=== PATIENT | female | born 1945 | race Caucasian/White ===

== ENCOUNTER 2017-02-09 21:02 | Inpatient (IN) | payer OTHER ==
[~2017-02-09] VITALS: Ht 144.8 cm; Wt 71.8 kg
[~2017-02-09 21:02] MED LIST: ALBU1AER9 INH; ASPI81TA25 PO; ATOR-14 PO; CYAN100020 PO; DOCU-94 PO; FOLI1TAB7 PO; GLC/500 PO; LATA0.009 OPB; LEVA1.25 INH; LISI-729 PO; METO25TA56 PO; MOME200A INH; MONT1TAB3 PO; MORP15TA19 PO; MULTCAP31 PO; NTRGSL/4 UT; NYSTCRE11 TOP; OXYC-57 PO; PANT40TA PO; POLY335019 PO; PRD/25 PO; RTXI500 INJ; THIA50TA3 PO; VENL75TA4 PO
[2017-02-09] MEDS ORDERED: SODIUM CHLORIDE 0.9% 1000ML 1,000 ML IV SCH (21:29)
[2017-02-09] MEDS ORDERED: ONDANSETRON INJ 2 MG/ML 2 ML VIAL IV STA (21:33)
--- NOTE | 2017-02-09 21:48 | DIAGNOSTIC IMAGING REPORT ---
CHEST ONE VIEW PORTABLE CLINICAL HISTORY: Stroke symptoms. COMPARISON STUDY: Chest radiograph November 26, 2015. FINDINGS: Right shoulder arthroplasty is incidentally noted. There is no pneumothorax or pleural effusion. Cardiomediastinal silhouette is stable. There is no evidence of pulmonary edema. No consolidation is identified. IMPRESSION: No acute cardiopulmonary findings. Electronically signed by: Ga Villalta M.D. 02/09/2017 9:46 PM Dictated Date/Time: 02/09/2017 9:45 PM
--- NOTE | 2017-02-09 22:01 | DIAGNOSTIC IMAGING REPORT ---
CT OF THE HEAD WITHOUT CONTRAST CLINICAL HISTORY: Stroke. Lethargic. COMPARISON STUDY: Head CT August 06, 2013. CT DOSE: 537.48 mGy.cm TECHNIQUE: Helical axial images of the head were obtained without IV contrast. Automated exposure control was utilized for the study. FINDINGS: No acute intracranial hemorrhage, midline shift or mass effect is present. Ventricular system is stable. Basilar cisterns are patent. There are no extra-axial collections. White matter hypodensities suggest small vessel disease. There are no findings to suggest acute dural sinus thrombosis or acute territorial infarct. Visualized portions of the sinuses and mastoid air cells are clear. There are no calvarial abnormalities. IMPRESSION: No acute intracranial findings. Electronically signed by: Ga Villalta M.D. 02/09/2017 10:00 PM Dictated Date/Time: 02/09/2017 9:56 PM
[2017-02-09 22:21] LABS: BASO % 0.4 %; BASO ABS # 0.03 K/uL (0-0.2); COMPLETE YES; EOS % 4.9 %; HEMATOCRIT 32.5 % (37-47); IG% 0.2 %; LYMPH % 30.1 %; LYMPH ABS # 2.46 K/uL (1.2-3.4); MEAN CORPUSCULAR HEMOGLOBIN 29.7 pg (25-34); MEAN CORPUSCULAR HGB CONC 32.6 g/dl (32-36); MEAN PLATELET VOLUME 10.3 fL (7.4-10.4); MONO % 10.3 %; NEUT % 54.1 %; PLATELET COUNT 217 K/uL (130-400); RED BLOOD COUNT 3.57 M/uL (4.2-5.4); WHITE BLOOD COUNT 8.17 K/uL (4.8-10.8)
[2017-02-09 22:30] LABS: BUN/CREATININE RATIO 15.9 (10-20); CREATININE 1.8 mg/dl (0.60-1.20); MAGNESIUM 1.9 mg/dl (1.8-2.4); POTASSIUM 4.5 mmol/L (3.5-5.1)
[2017-02-09 22:36] LABS: CALCIUM 8.6 mg/dl (8.5-10.1)
[2017-02-09 22:45] LABS: PARTIAL THROMBOPLASTIN RATIO 0.9; PROTHROMBIN TIME (PATIENT) 10.4 SECONDS (9.0-12.0)
[2017-02-09 22:48] LABS: CKMB/CK RATIO 3.2 (0-3.0); THYROID STIMULATING HORMONE 1.35 uIu/ml (0.300-4.500)
[2017-02-09] MEDS ORDERED: LPT10 PO (23:39)
[2017-02-09] MEDS ORDERED: FLUT1INH PO (23:39)
[2017-02-09] MEDS ORDERED: LSN25 PO (23:39)
[2017-02-09] MEDS ORDERED: VNTHFA/IN INH (23:42)
[2017-02-09] MEDS ORDERED: XLTOPS OPB (23:42)
[2017-02-09] MEDS ORDERED: LEVA1.255 NEB (23:44)
[2017-02-10] VITALS (11 sets, daily range): BP systolic 92–146; BP diastolic 54–74; PULSE 60–80; TEMP 37–37.7; O2SAT 92–98; Ht 144.8 cm; Wt 71.8 kg
[2017-02-10 01:11] LABS: URINE APPEARANCE CLEAR (CLEAR); URINE BILIRUBIN NEG (NEG); URINE COLOR YELLOW; URINE EPITHELIAL CELL AUTO >30 /lpf (0-5); URINE NITRITE NEG (NEG); URINE SPECIFIC GRAVITY 1.018 (1.000-1.030); UROBILINOGEN NEG (NEG); ZZUR CULT IF INDIC CLEAN CATCH YES
[2017-02-10 01:14] LABS: MANUAL MICROSCOPIC REQUIRED? NO; REVIEW REQ? NO
[2017-02-10] MEDS ORDERED: GLUCAGON FOR INJ 1 MG VIAL SQ PRN (01:15)
[2017-02-10] MEDS ORDERED: GLUCOSE 10 TABS/TUBE PO PRN (01:15)
[2017-02-10] MEDS ORDERED: DEXTROSE 50% 50 ML SYR IV PRN (01:15)
[2017-02-10] MEDS ORDERED: GLUCOSE 40% GEL 15 GM TUBE PO PRN (01:15)
[2017-02-10] MEDS ORDERED: POLYETHYLENE (MIRALAX) 17 GM PACK PO PRN (01:30)
[2017-02-10] MEDS ORDERED: PHARMACY GLYCEMIC MGMT CONSULT PRN (01:39)
--- NOTE | 2017-02-10 01:45 | History and Physical ---
History & Physical Date & Time of Service: February 10, 2017 at 01:29 Chief Complaint: Lethargic,Not Eating,Not Answering Questions Right Primary Care Physician: Abigail Garcia M.D. History of Present Illness Source: patient, family, clinic records, hospital records 74 year old female with history of CAD, DM, HTN, CKD 3, Rheumatoid Arthritis, presenting with altered mental status x [address] Garcia for Primary Care. Patient was in her usual state of health until about a week ago when she started to feel "not up to par", weak. Denies fever/chills, nausea/vomiting, diarrhea. Appetite and oral intake has been decreased. Two days ago, she started to notice that she seems confused, slow to answer simple questions, and unsteady with her walking. Denies slurred speech, changes with vision, focal weakness/numbness. Symptoms worsened today prompting ER consult. VS stable at the ER. CT head: no acute process Troponin 0.3, EKG non specific t wave inversion inferior lead Crea increased from baseline 1.1 to 1.8 On exam, patient sitting up in bed, at bedside, comfortable, pleasant. Answers most questions appropriately. Was still unsteady walking to the bathroom. No other symptoms. 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 Status: Chronic (13) Heart disease Status: Chronic (14) HTN (hypertension) Status: Chronic (15) Migraines Status: Chronic (16) Osteoarthritis Status: Chronic (17) Peripheral neuropathy Status: Chronic (18) Pneumonia Status: Resolved (19) Rheumatoid arthritis Permanent Comment: on chronic steroids Status: Chronic Surgical Problems: (1) H/O cardiac catheterization Permanent Comment: cath 07/2013- single vessel CAD involving apical segment LAD , medical management indicated Status: Chronic (2) H/O colonoscopy Status: Chronic (3) History of hysterectomy Status: Chronic (4) S/p EGD Status: Chronic (5) S/P removal of ovarian cyst Status: Chronic (6) S/P rotator cuff repair Permanent Comment: right shoulder Status: Chronic (7) S/P total knee arthroplasty Permanent Comment: left knee Status: Chronic Family History Diabetes mellitus FATHER FH: CHF (congestive heart failure) MOTHER FH: glaucoma MOTHER FH: heart disease FH: renal failure MOTHER Heart block MOTHER Hypertension FATHER MOTHER Stroke FATHER Social History Smoking Status: Never Smoker Smokeless Tobacco Use: No Alcohol Use: none Drug Use: none Marital Status: Housing status: lives with family Occupational Status: retired Immunizations History of Influenza Vaccine: N/A History of Tetanus Vaccine?: Yes History of Pneumococcal: Yes History of Hepatitis B Vaccine: Yes Multi-Drug Resistant Organisms History of MDRO: No Allergies Coded Allergies: Methotrexate (Verified Allergy, Intermediate, RASH/PNEUMONITIS, 02/09/17) Penicillins (Verified Allergy, Intermediate, hives, 02/09/17) Ranitidine (Verified Allergy, Intermediate, rash, 02/09/17) Uncoded Allergies: Insecticides (Allergy, Unknown, DIFFICULTY BREATHING; FULL BODY SWELLING, ) Home Medications Scheduled Aspirin (Aspir-Low), 81 MG PO HS Atorvastatin (Atorvastatin Calcium), 10 MG PO DAILY Cyanocobalamin (Vitamin B12), 1,000 MCG PO QAM Docusate Sodium (Colace), 2 CAP PO HS Fluticasone Furoate-Vilanterol (Breo Ellipta), 1 PUFF PO BID Folic Acid (Folvite), 1 MG PO QPM Latanoprost (Latanoprost), 1 DROP OPB HS Lisinopril (Lisinopril), 2.5 MG PO DAILY Metformin Hcl (Glucophage), 500 MG PO BID Metoprolol Tartrate (Lopressor) (Lopressor), 25 MG PO BID Multiple Vitamins W/ Minerals (Ocuvite Lutein), 1 CAP PO HS Pantoprazole Sodium (Protonix), 40 MG PO QAM Prednisone (Prednisone), 5 MG PO QAM Thiamine Hcl (Vitamin B-1), 50 MG PO QPM Venlafaxine Hcl (Effexor), 75 MG PO AMPM Scheduled PRN Albuterol Hfa (Ventolin Hfa), 2 PUFFS INH Q4 PRN for SOB/Wheezing Levalbuterol Hcl (Levalbuterol), 1 DOSE NEB Q4 PRN for SOB/Wheezing Morphine Cont Rel (Ms Contin), 15 MG PO Q4 PRN for Pain Nitroglycerin (Nitrostat), 0.4 MG UT UD PRN for Chest Pain Polyethylene Glycol 3350 (Miralax), 17 GM PO DAILY PRN for Constipation Review of Systems Constitutional- no fever; no weight loss Eyes- no acute visual changes ENT- no sinus drainage; no pharyngitis Pulmonary- no cough, no wheezing, no shortness of breath Cardiac- no chest pain, no palpitations, no orthopnea, no dependent edema GI- no nausea, no vomiting, no diarrhea, no melena, no hematochezia - no dysuria, no hematuria Musculoskeletal- no arthralgias, no myalgias Derm- no rashes, no new skin lesions, no changing skin lesions Hematologic- no unusual bruising, no unusual bleeding Lymphatics- no adenopathy Endocrine- no polyuria or polydipsia; no heat or cold intolerance Neuro- (+) as noted above Psych- no anxiety, no depression Physical Exam Vital Signs Date Time Temp Pulse Resp B/P Pulse Ox O2 Delivery O2 Flow Rate FiO2 02/10/17 01:25 37.4 68 18 152/69 94 02/10/17 01:02 68 18 152/69 94 Nasal Cannula 3.0 02/09/17 23:00 67 18 115/68 100 Nasal Cannula 3.0 02/09/17 22:27 64 02/09/17 22:06 90 02/09/17 21:05 37.4 72 20 104/48 92 Room Air General Appearance: WD/WN, no apparent distress Head: normocephalic, atraumatic Eyes: normal inspection, PERRL, EOMI, sclerae normal ENT: normal ENT inspection, hearing grossly normal, pharynx normal Neck: supple, no adenopathy, thyroid normal, no JVD, trachea midline Respiratory/Chest: chest non-tender, lungs clear, normal breath sounds, no respiratory distress, no accessory muscle use Cardiovascular: regular rate, rhythm, no edema, no JVD, no murmur, normal peripheral pulses Abdomen/GI: normal bowel sounds, non tender, soft Back: normal inspection, no CVA tenderness Extremities/Musculoskelatal: normal inspection, no calf tenderness, normal capillary refill, no pedal edema, normal range of motion Neurologic/Psych: cone picker II-XII nml as tested, no motor/sensory deficits, alert, normal mood/affect, oriented x 3 Skin: normal color, warm/dry, no rash Lymphatic: no adenopathy Diagnostics Laboratory Results Results Past 24 Hours Test 02/09/17 21:59 02/09/17 22:02 02/09/17 22:28 02/10/17 00:50 Range/Units Bedside Glucose 78 70-90 mg/dl White Blood Count 8.17 4.8-10.8 K/uL Red Blood Count 3.57 4.2-5.4 M/uL Hemoglobin 10.6 12.0-16.0 g/dL Hematocrit 32.5 37-47 % Mean Corpuscular Volume 91.0 80-100 fL Mean Corpuscular Hemoglobin 29.7 25-34 pg Mean Corpuscular Hemoglobin Concent 32.6 32-36 g/dl Platelet Count 217 130-400 K/uL Mean Platelet Volume 10.3 7.4-10.4 fL Neutrophils (%) (Auto) 54.1 % Lymphocytes (%) (Auto) 30.1 % Monocytes (%) (Auto) 10.3 % Eosinophils (%) (Auto) 4.9 % Basophils (%) (Auto) 0.4 % Neutrophils # (Auto) 4.42 1.4-6.5 K/uL Lymphocytes # (Auto) 2.46 1.2-3.4 K/uL Monocytes # (Auto) 0.84 0.11-0.59 K/uL Eosinophils # (Auto) 0.40 0-0.5 K/uL Basophils # (Auto) 0.03 0-0.2 K/uL RDW Standard Deviation 52.2 36.4-46.3 fL RDW Coefficient of Variation 15.5 11.5-14.5 % Immature Granulocyte % (Auto) 0.2 % Immature Granulocyte # (Auto) 0.02 0.00-0.02 K/uL Sodium Level 138 136-145 mmol/L Potassium Level 4.5 3.5-5.1 mmol/L Chloride Level 104 98-107 mmol/L Carbon Dioxide Level 25 21-32 mmol/L Anion Gap 9.0 3-11 mmol/L Blood Urea Nitrogen 29 7-18 mg/dl Creatinine 1.80 0.60-1.20 mg/dl Est Creatinine Clear Calc Drug Dose 24.3 ml/min Estimated GFR () 32.7 Estimated GFR (Non- 28.2 BUN/Creatinine Ratio 15.9 10-20 Random Glucose 77 70-99 mg/dl Calcium Level 8.6 8.5-10.1 mg/dl Magnesium Level 1.9 1.8-2.4 mg/dl Total Bilirubin 0.3 0.2-1 mg/dl Direct Bilirubin 0.1 0-0.2 mg/dl Aspartate Amino Transf (AST/SGOT) 26 15-37 U/L Alanine Aminotransferase (ALT/SGPT) 14 12-78 U/L Alkaline Phosphatase 56 45-117 U/L Total Creatine Kinase 118 26-192 U/L Creatine Kinase MB 3.8 0.5-3.6 ng/ml Creatine Kinase MB Ratio 3.2 0-3.0 Troponin I 0.112 0-0.045 ng/ml Total Protein 6.4 6.4-8.2 gm/dl Albumin 3.7 3.4-5.0 gm/dl Thyroid Stimulating Hormone (TSH) 1.350 0.300-4.500 uIu/ml Prothrombin Time 10.4 9.0-12.0 SECONDS Prothromb Time International Ratio 1.0 0.9-1.1 Activated Partial Thromboplast Time 24.5 21.0-31.0 SECONDS Partial Thromboplastin Ratio 0.9 Urine Color YELLOW Urine Appearance CLEAR CLEAR Urine pH 5.0 4.5-7.5 Urine Specific [place] 1.018 1.000-1.030 Urine Protein NEG NEG Urine Glucose (UA) NEG NEG Urine Ketones NEG NEG Urine Occult Blood NEG NEG Urine Nitrite NEG NEG Urine Bilirubin NEG NEG Urine Urobilinogen NEG NEG Urine Leukocyte Esterase MODERATE NEG Urine WBC (Auto) 10-30 0-5 /hpf Urine RBC (Auto) 0-4 0-4 /hpf Urine Hyaline Casts (Auto) 5-10 0-5 /lpf Urine Epithelial Cells (Auto) >30 0-5 /lpf Urine Bacteria (Auto) NEG NEG Microbiology Results 02/10/17 Urine Culture, Received Pending Diagnostic Radiology [~ rep ct add3]] CT OF THE HEAD WITHOUT CONTRAST CLINICAL HISTORY: Stroke. Lethargic. COMPARISON STUDY: Head CT August 06, 2013. CT DOSE: 537.48 mGy.cm TECHNIQUE: Helical axial images of the head were obtained without IV contrast. Automated exposure control was utilized for the study. FINDINGS: No acute intracranial hemorrhage, midline shift or mass effect is present. Ventricular system is stable. Basilar cisterns are patent. There are no extra-axial collections. White matter hypodensities suggest small vessel disease. There are no findings to suggest acute dural sinus thrombosis or acute territorial infarct. Visualized portions of the sinuses and mastoid air cells are clear. There are no calvarial abnormalities. IMPRESSION: No acute intracranial findings. EKG HR 68. sinus rhythm, non specific t wave inversion inferior leads Impression Assessment and Plan 74 year old female with history of CAD, DM, HTN, CKD 3, Rheumatoid Arthritis, presenting with altered mental status x 2 days. ALTERED MENTAL STATUS - presents with 2 day history of slow to answer questions,mild confusion and gait imbalance - likely from Acute Renal Failure on CKD 3, Intake of Morphine management noted below - r/o CVA CT head negative ff up MRI Brain Neurochecks check orthostatic vital signs ACUTE RENAL FAILURE ON CKD 3 - possible pre renal etiology - hold Metformin, Lisinopril decrease dose of Morphine and Effexor - IV NSS monitor crea MILD CARDIAC MARKER ELEVATION HISTORY OF CAD - no cardiac symptoms non specific t wave inversion in inferior leads - serial cardiac markers echo repeat EKG in AM - may just be from acute renal failure - already on Aspirin , Statin DM 2 hold Metformin ISS HYPERTENSION hold Lisinopril continue Metoprolol B12 AND THIAMINE DEFICIENCY on supplements check levels RHEUMATOID ARTHRITIS on Plaquenil as per patient, 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 Lucas in 08/2016, no note of discontinuing Prednisone needs to be confirmed with Dr. Lucas DVT PROPHYLAXIS SCDs Full code per patient Disposition pending lives with PT/OT eval VTE Prophylaxis VTE Risk Assessment Done? Y/N: Yes Risk Level: Moderate
--- NOTE | 2017-02-10 01:45 | EMERGENCY ROOM VISIT NOTE ---
ED Visit Note First contact with patient: 21:24 Patient seen by me, currently being admitted by the hospitalist. I agree with the physician assistants workup patient will be further evaluated for elevated troponin and strokelike symptoms. 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 Status: Chronic (13) Heart disease Status: Chronic (14) HTN (hypertension) Status: Chronic (15) Migraines Status: Chronic (16) Osteoarthritis Status: Chronic (17) Peripheral neuropathy Status: Chronic (18) Pneumonia Status: Resolved (19) Rheumatoid arthritis Permanent Comment: on chronic steroids Status: Chronic Surgical Problems: (1) H/O cardiac catheterization Permanent Comment: cath 07/2013- single vessel CAD involving apical segment LAD , medical management indicated Status: Chronic (2) H/O colonoscopy Status: Chronic (3) History of hysterectomy Status: Chronic (4) S/p EGD Status: Chronic (5) S/P removal of ovarian cyst Status: Chronic (6) S/P rotator cuff repair Permanent Comment: right shoulder Status: Chronic (7) S/P total knee arthroplasty Permanent Comment: left knee Status: Chronic Current/Historical Medications Scheduled Aspirin (Aspir-Low), 81 MG PO HS Atorvastatin (Atorvastatin Calcium), 10 MG PO DAILY Cyanocobalamin (Vitamin B12), 1,000 MCG PO QAM Docusate Sodium (Colace), 2 CAP PO HS Fluticasone Furoate-Vilanterol (Breo Ellipta), 1 PUFF PO BID Folic Acid (Folvite), 1 MG PO QPM Latanoprost (Latanoprost), 1 DROP OPB HS Lisinopril (Lisinopril), 2.5 MG PO DAILY Metformin Hcl (Glucophage), 500 MG PO BID Metoprolol Tartrate (Lopressor) (Lopressor), 25 MG PO BID Multiple Vitamins W/ Minerals (Ocuvite Lutein), 1 CAP PO HS Pantoprazole Sodium (Protonix), 40 MG PO QAM Prednisone (Prednisone), 5 MG PO QAM Thiamine Hcl (Vitamin B-1), 50 MG PO QPM Venlafaxine Hcl (Effexor), 75 MG PO AMPM Scheduled PRN Albuterol Hfa (Ventolin Hfa), 2 PUFFS INH Q4 PRN for SOB/Wheezing Levalbuterol Hcl (Levalbuterol), 1 DOSE NEB Q4 PRN for SOB/Wheezing Morphine Cont Rel (Ms Contin), 15 MG PO Q4 PRN for Pain Nitroglycerin (Nitrostat), 0.4 MG UT UD PRN for Chest Pain Polyethylene Glycol 3350 (Miralax), 17 GM PO DAILY PRN for Constipation Allergies Coded Allergies: Methotrexate (Verified Allergy, Intermediate, RASH/PNEUMONITIS, 02/09/17) Penicillins (Verified Allergy, Intermediate, hives, 02/09/17) Ranitidine (Verified Allergy, Intermediate, rash, 02/09/17) Uncoded Allergies: Insecticides (Allergy, Unknown, DIFFICULTY BREATHING; FULL BODY SWELLING, ) Vital Signs Date Time Temp Pulse Resp B/P Pulse Ox O2 Delivery O2 Flow Rate FiO2 02/10/17 01:02 68 18 152/69 94 Nasal Cannula 3.0 02/09/17 23:00 67 18 115/68 100 Nasal Cannula 3.0 02/09/17 22:27 64 02/09/17 22:06 90 02/09/17 21:05 37.4 72 20 104/48 92 Room Air Laboratory Results 02/09/17 22:02 Red Blood Count 3.57, Mean Corpuscular Volume 91.0, Mean Corpuscular Hemoglobin 29.7, Mean Corpuscular Hemoglobin Concent 32.6, Mean Platelet Volume 10.3, Neutrophils (%) (Auto) 54.1, Lymphocytes (%) (Auto) 30.1, Monocytes (%) (Auto) 10.3, Eosinophils (%) (Auto) 4.9, Basophils (%) (Auto) 0.4, Neutrophils # (Auto ) 4.42, Lymphocytes # (Auto) 2.46, Monocytes # (Auto) 0.84, Eosinophils # (Auto ) 0.40, Basophils # (Auto) 0.03 02/09/17 22:02 Test 02/09/17 21:59 02/09/17 22:02 02/09/17 22:28 02/10/17 00:50 Bedside Glucose 78 mg/dl (70-90) White Blood Count 8.17 K/uL (4.8-10.8) Red Blood Count 3.57 M/uL (4.2-5.4) Hemoglobin 10.6 g/dL (12.0-16.0) Hematocrit 32.5 % (37-47) Mean Corpuscular Volume 91.0 fL (80-100) Mean Corpuscular Hemoglobin 29.7 pg (25-34) Mean Corpuscular Hemoglobin Concent 32.6 g/dl (32-36) Platelet Count 217 K/uL (130-400) Mean Platelet Volume 10.3 fL (7.4-10.4) Neutrophils (%) (Auto) 54.1 % Lymphocytes (%) (Auto) 30.1 % Monocytes (%) (Auto) 10.3 % Eosinophils (%) (Auto) 4.9 % Basophils (%) (Auto) 0.4 % Neutrophils # (Auto) 4.42 K/uL (1.4-6.5) Lymphocytes # (Auto) 2.46 K/uL (1.2-3.4) Monocytes # (Auto) 0.84 K/uL (0.11-0.59) Eosinophils # (Auto) 0.40 K/uL (0-0.5) Basophils # (Auto) 0.03 K/uL (0-0.2) RDW Standard Deviation 52.2 fL (36.4-46.3) RDW Coefficient of Variation 15.5 % (11.5-14.5) Immature Granulocyte % (Auto) 0.2 % Immature Granulocyte # (Auto) 0.02 K/uL (0.00-0.02) Anion Gap 9.0 mmol/L (3-11) Est Creatinine Clear Calc Drug Dose 24.3 ml/min Estimated GFR () 32.7 Estimated GFR (Non- 28.2 BUN/Creatinine Ratio 15.9 (10-20) Calcium Level 8.6 mg/dl (8.5-10.1) Magnesium Level 1.9 mg/dl (1.8-2.4) Total Bilirubin 0.3 mg/dl (0.2-1) Direct Bilirubin 0.1 mg/dl (0-0.2) Aspartate Amino Transf (AST/SGOT) 26 U/L (15-37) Alanine Aminotransferase (ALT/SGPT) 14 U/L (12-78) Alkaline Phosphatase 56 U/L (45-117) Total Creatine Kinase 118 U/L (26-192) Creatine Kinase MB 3.8 ng/ml (0.5-3.6) Creatine Kinase MB Ratio 3.2 (0-3.0) Troponin I 0.112 ng/ml (0-0.045) Total Protein 6.4 gm/dl (6.4-8.2) Albumin 3.7 gm/dl (3.4-5.0) Thyroid Stimulating Hormone (TSH) 1.350 uIu/ml (0.300-4.500) Prothrombin Time 10.4 SECONDS (9.0-12.0) Prothromb Time International Ratio 1.0 (0.9-1.1) Activated Partial Thromboplast Time 24.5 SECONDS (21.0-31.0) Partial Thromboplastin Ratio 0.9 Urine Color YELLOW Urine Appearance CLEAR (CLEAR) Urine pH 5.0 (4.5-7.5) Urine Specific [place] 1.018 (1.000-1.030) Urine Protein NEG (NEG) Urine Glucose (UA) NEG (NEG) Urine Ketones NEG (NEG) Urine Occult Blood NEG (NEG) Urine Nitrite NEG (NEG) Urine Bilirubin NEG (NEG) Urine Urobilinogen NEG (NEG) Urine Leukocyte Esterase MODERATE (NEG) Urine WBC (Auto) 10-30 /hpf (0-5) Urine RBC (Auto) 0-4 /hpf (0-4) Urine Hyaline Casts (Auto) 5-10 /lpf (0-5) Urine Epithelial Cells (Auto) >30 /lpf (0-5) Urine Bacteria (Auto) NEG (NEG) Medications Administered Medications (Trade) Dose Ordered Sig/[place] Route Start Time Stop Time Status Last Admin Dose Admin Sodium Chloride (Nss 1000ml) 1,000 ml @ 50 mls/hr Q20H IV 02/09/17 21:29 03/11/17 21:28 02/09/17 21:29 50 MLS/HR Ondansetron HCl (Zofran Inj) 4 mg NOW STAT IV 02/09/17 21:33 02/09/17 21:34 DC 02/09/17 21:33 4 MG Departure Information Referrals Abigail Garcia M.D. (PCP) Patient Instructions [facility]
[2017-02-10] MEDS: SODIUM CHLORIDE 0.9% 1000ML 1,000 ML IV SCH ×3 (01:52→23:04)
--- NOTE | 2017-02-10 01:56 | EMERGENCY ROOM VISIT NOTE ---
History First contact with patient: 21:24 Chief Complaint: ALTERED MENTAL STATUS Stated Complaint: ALTERED MENTAL STATUS Nursing Triage Summary: patient reports dizziness today,patient slept til 12pm today and patient was fine at bedtime last night,patient almost fell at home today at 12pm History of Present Illness The patient is a 71 year old female who presents to the Emergency Room with complaints of increased confusion, dysarthria, dizziness, not feeling right, like appetite for the past day. Patient states today she could not find the words that she wanted to say and had difficulty with ambulation and felt dizzy. This is new for her. Patient denies chest pain, dyspnea, fever, chills, cough , congestion, abdominal pain, vomiting, diarrhea, urinary symptoms. She does complain of some nausea. Review of Systems See HPI for pertinent positives & negatives. A total of 10 systems reviewed and were otherwise negative. Past Medical/Surgical History Medical Problems: (1) Allergic rhinitis (2) Altered mental status (3) Asthma (4) CKD (chronic kidney disease), stage III (5) COPD (chronic obstructive pulmonary disease) (6) Depression (7) DJD of right shoulder (8) DM type 2 (diabetes mellitus, type 2) (9) DM type 2 (diabetes mellitus, type 2) (10) Dyslipidemia (11) Gastroparesis (12) GERD (gastroesophageal reflux disease) (13) Glaucoma (14) Gout (15) H/O interstitial lung disease (16) Heart disease (17) HTN (hypertension) (18) Migraines (19) Osteoarthritis (20) Peripheral neuropathy (21) Pneumonia (22) Rheumatoid arthritis Surgical Problems: (1) H/O cardiac catheterization (2) H/O colonoscopy (3) History of hysterectomy (4) S/p EGD (5) S/P removal of ovarian cyst (6) S/P rotator cuff repair (7) S/P total knee arthroplasty Family History Diabetes mellitus FATHER FH: CHF (congestive heart failure) MOTHER FH: glaucoma MOTHER FH: heart disease FH: renal failure MOTHER Heart block MOTHER Hypertension FATHER MOTHER Stroke FATHER Social History Smoking Status: Never Smoker Smokeless Tobacco Use: No Alcohol Use: none Drug Use: none Marital Status: Housing Status: lives with family Occupation Status: retired Current/Historical Medications Scheduled Aspirin (Aspir-Low), 81 MG PO HS Atorvastatin (Atorvastatin Calcium), 10 MG PO DAILY Cyanocobalamin (Vitamin B12), 1,000 MCG PO QAM Docusate Sodium (Colace), 2 CAP PO HS Fluticasone Furoate-Vilanterol (Breo Ellipta), 1 PUFF PO BID Folic Acid (Folvite), 1 MG PO QPM Latanoprost (Latanoprost), 1 DROP OPB HS Lisinopril (Lisinopril), 2.5 MG PO DAILY Metformin Hcl (Glucophage), 500 MG PO BID Metoprolol Tartrate (Lopressor) (Lopressor), 25 MG PO BID Multiple Vitamins W/ Minerals (Ocuvite Lutein), 1 CAP PO HS Pantoprazole Sodium (Protonix), 40 MG PO QAM Prednisone (Prednisone), 5 MG PO QAM Thiamine Hcl (Vitamin B-1), 50 MG PO QPM Venlafaxine Hcl (Effexor), 75 MG PO AMPM Scheduled PRN Albuterol Hfa (Ventolin Hfa), 2 PUFFS INH Q4 PRN for SOB/Wheezing Levalbuterol Hcl (Levalbuterol), 1 DOSE NEB Q4 PRN for SOB/Wheezing Morphine Cont Rel (Ms Contin), 15 MG PO Q4 PRN for Pain Nitroglycerin (Nitrostat), 0.4 MG UT UD PRN for Chest Pain Polyethylene Glycol 3350 (Miralax), 17 GM PO DAILY PRN for Constipation Allergies Coded Allergies: Methotrexate (Verified Allergy, Intermediate, RASH/PNEUMONITIS, 02/09/17) Penicillins (Verified Allergy, Intermediate, hives, 02/09/17) Ranitidine (Verified Allergy, Intermediate, rash, 02/09/17) Uncoded Allergies: Insecticides (Allergy, Unknown, DIFFICULTY BREATHING; FULL BODY SWELLING, ) Physical Exam Vital Signs Date Time Temp Pulse Resp B/P Pulse Ox O2 Delivery O2 Flow Rate FiO2 02/10/17 01:02 68 18 152/69 94 Nasal Cannula 3.0 02/09/17 23:00 67 18 115/68 100 Nasal Cannula 3.0 02/09/17 22:27 64 02/09/17 22:06 90 02/09/17 21:05 37.4 72 20 104/48 92 Room Air Pain Rating (0-10): 0 Physical Exam VITALS: Vitals are noted on the nurse's note and reviewed by myself. Vital signs stable. GENERAL: Pleasant female, in no acute distress, nondiaphoretic, well-developed well-nourished. SKIN: The skin was without rashes, erythema, edema, or bruising. There is no tenting of the skin. Capillary reflex less than 2 seconds. HEAD: Normocephalic atraumatic. EARS: External auditory canals clear, tympanic membranes pearly childs without erythema or effusion bilaterally. EYES: Pupils equal round and reactive to light and accommodation. Conjunctivae without injection, sclerae without icterus. Extraocular movements intact. NOSE: Patent, turbinates without inflammation or discharge. MOUTH: Mucous membranes moist. Pharynx without erythema or exudate. Uvula midline. Airway patent. Tongue does not deviate. NECK: Supple without nuchal rigidity. No lymphadenopathy. No thyromegaly. Cervical spine is nontender. No JVD. HEART: Regular rate and rhythm LUNGS: Clear to auscultation bilaterally without wheezes, rales or rhonchi. No dullness to percussion. No retractions or accessory muscle use. ABDOMEN: Positive bowel sounds x 4. Normal tympanic percussion. Soft, nontender, without masses or organomegaly. Baker sign negative. No guarding or rebound tenderness. MUSCULOSKELETAL: No muscle atrophy, erythema, or edema noted. 5 out of 5 strength throughout. NEURO: Patient was alert and oriented to person place and time. Normal sensation to light and sharp touch. Patient unable to do finger to nose. No other focal neurological deficits. Medical Decision & Procedures Laboratory Results 02/09/17 22:02 Red Blood Count 3.57, Mean Corpuscular Volume 91.0, Mean Corpuscular Hemoglobin 29.7, Mean Corpuscular Hemoglobin Concent 32.6, Mean Platelet Volume 10.3, Neutrophils (%) (Auto) 54.1, Lymphocytes (%) (Auto) 30.1, Monocytes (%) (Auto) 10.3, Eosinophils (%) (Auto) 4.9, Basophils (%) (Auto) 0.4, Neutrophils # (Auto ) 4.42, Lymphocytes # (Auto) 2.46, Monocytes # (Auto) 0.84, Eosinophils # (Auto ) 0.40, Basophils # (Auto) 0.03 02/09/17 22:02 Test 02/09/17 21:59 02/09/17 22:02 02/09/17 22:28 02/10/17 00:50 Bedside Glucose 78 mg/dl (70-90) White Blood Count 8.17 K/uL (4.8-10.8) Red Blood Count 3.57 M/uL (4.2-5.4) Hemoglobin 10.6 g/dL (12.0-16.0) Hematocrit 32.5 % (37-47) Mean Corpuscular Volume 91.0 fL (80-100) Mean Corpuscular Hemoglobin 29.7 pg (25-34) Mean Corpuscular Hemoglobin Concent 32.6 g/dl (32-36) Platelet Count 217 K/uL (130-400) Mean Platelet Volume 10.3 fL (7.4-10.4) Neutrophils (%) (Auto) 54.1 % Lymphocytes (%) (Auto) 30.1 % Monocytes (%) (Auto) 10.3 % Eosinophils (%) (Auto) 4.9 % Basophils (%) (Auto) 0.4 % Neutrophils # (Auto) 4.42 K/uL (1.4-6.5) Lymphocytes # (Auto) 2.46 K/uL (1.2-3.4) Monocytes # (Auto) 0.84 K/uL (0.11-0.59) Eosinophils # (Auto) 0.40 K/uL (0-0.5) Basophils # (Auto) 0.03 K/uL (0-0.2) RDW Standard Deviation 52.2 fL (36.4-46.3) RDW Coefficient of Variation 15.5 % (11.5-14.5) Immature Granulocyte % (Auto) 0.2 % Immature Granulocyte # (Auto) 0.02 K/uL (0.00-0.02) Anion Gap 9.0 mmol/L (3-11) Est Creatinine Clear Calc Drug Dose 24.3 ml/min Estimated GFR () 32.7 Estimated GFR (Non- 28.2 BUN/Creatinine Ratio 15.9 (10-20) Calcium Level 8.6 mg/dl (8.5-10.1) Magnesium Level 1.9 mg/dl (1.8-2.4) Total Bilirubin 0.3 mg/dl (0.2-1) Direct Bilirubin 0.1 mg/dl (0-0.2) Aspartate Amino Transf (AST/SGOT) 26 U/L (15-37) Alanine Aminotransferase (ALT/SGPT) 14 U/L (12-78) Alkaline Phosphatase 56 U/L (45-117) Total Creatine Kinase 118 U/L (26-192) Creatine Kinase MB 3.8 ng/ml (0.5-3.6) Creatine Kinase MB Ratio 3.2 (0-3.0) Troponin I 0.112 ng/ml (0-0.045) Total Protein 6.4 gm/dl (6.4-8.2) Albumin 3.7 gm/dl (3.4-5.0) Thyroid Stimulating Hormone (TSH) 1.350 uIu/ml (0.300-4.500) Prothrombin Time 10.4 SECONDS (9.0-12.0) Prothromb Time International Ratio 1.0 (0.9-1.1) Activated Partial Thromboplast Time 24.5 SECONDS (21.0-31.0) Partial Thromboplastin Ratio 0.9 Urine Color YELLOW Urine Appearance CLEAR (CLEAR) Urine pH 5.0 (4.5-7.5) Urine Specific [place] 1.018 (1.000-1.030) Urine Protein NEG (NEG) Urine Glucose (UA) NEG (NEG) Urine Ketones NEG (NEG) Urine Occult Blood NEG (NEG) Urine Nitrite NEG (NEG) Urine Bilirubin NEG (NEG) Urine Urobilinogen NEG (NEG) Urine Leukocyte Esterase MODERATE (NEG) Urine WBC (Auto) 10-30 /hpf (0-5) Urine RBC (Auto) 0-4 /hpf (0-4) Urine Hyaline Casts (Auto) 5-10 /lpf (0-5) Urine Epithelial Cells (Auto) >30 /lpf (0-5) Urine Bacteria (Auto) NEG (NEG) Medications Administered Medications (Trade) Dose Ordered Sig/Adair Route Start Time Stop Time Status Last Admin Dose Admin Sodium Chloride (Nss 1000ml) 1,000 ml @ 50 mls/hr Q20H IV 02/09/17 21:29 03/11/17 21:28 02/09/17 21:29 50 MLS/HR Ondansetron HCl (Zofran Inj) 4 mg NOW STAT IV 02/09/17 21:33 5/29/17 21:34 DC 02/09/17 21:33 4 MG ED Course Prior records/ancillary studies reviewed and summarized above. Nursing notes reviewed. Additional history obtained from family The patient's history was concerning for dysarthria, weakness, difficulty with ambulation. Differential diagnosis: Etiologies such as metabolic, infection, hypo/hyperglycemia, electrolyte abnormalities, cardiac sources, intracerebral event, toxicologic, neurologic, as well as others were entertained. Physical examination: As above. ER treatment provided: IV Lock On reassessment the patient felt better. Diagnostics interpretation by me: ECG: Normal sinus, normal intervals, T wave inversion in lead 3 and aVF, incomplete right bundle branch block. Impression normal sinus rhythm with incomplete right bundle block interpreted by myself The labs revealed elevated troponin. Elevated creatinine. Imaging studies: CHEST ONE VIEW PORTABLE CLINICAL HISTORY: Stroke symptoms. COMPARISON STUDY: Chest radiograph November 26, 2015. FINDINGS: Right shoulder arthroplasty is incidentally noted. There is no pneumothorax or pleural effusion. Cardiomediastinal silhouette is stable. There is no evidence of pulmonary edema. No consolidation is identified. IMPRESSION: No acute cardiopulmonary findings. Electronically signed by: Ga Villalta M.D. 02/09/2017 9:[address] OF THE HEAD WITHOUT CONTRAST CLINICAL HISTORY: Stroke. Lethargic. COMPARISON STUDY: Head CT August 06, 2013. CT DOSE: 537.48 mGy.cm TECHNIQUE: Helical axial images of the head were obtained without IV contrast. Automated exposure control was utilized for the study. FINDINGS: No acute intracranial hemorrhage, midline shift or mass effect is present. Ventricular system is stable. Basilar cisterns are patent. There are no extra-axial collections. White matter hypodensities suggest small vessel disease. There are no findings to suggest acute dural sinus thrombosis or acute territorial infarct. Visualized portions of the sinuses and mastoid air cells are clear. There are no calvarial abnormalities. IMPRESSION: No acute intracranial findings. MRI ordered Consultation: A consultation was placed with the hospitalist, Dr Jackson. The case was discussed and diagnostics were reviewed. The patient was evaluated in the ER for further treatment. Exam and history seem consistent with acute renal failure, elevated troponin with weakness and difficulty with ambulation concerning for CVA symptoms. Head CT is negative. MRI is pending. Patient will be admitted to medicine for further evaluation and workup. By the evaluation outlined above emergent etiologies such as infection, electrolyte abnormalities, toxologic, abnormalities blood glucose, as well as others were deemed relatively unlikely. The pt informed about the findings as listed above. All questions were answered and pleased with the treatment. Case reviewed with my attending Medical Decision As above Impression Primary Impression: Acute renal failure Additional Impressions: Elevated troponin Altered mental status Departure Information Dispostion Being Evaluated By Hospitalist Condition FAIR Referrals Abigail Garcia M.D. (PCP) Patient Instructions My [facility] Problem Qualifiers Primary Impression: Acute renal failure Acute renal failure type: unspecified Qualified Codes: N17.9 - Acute kidney failure, unspecified
[2017-02-10 06:17] LABS: BASO % 0.3 %; BASO ABS # 0.02 K/uL (0-0.2); COMPLETE YES; EOS % 5.1 %; HEMATOCRIT 33.3 % (37-47); IG% 0.3 %; LYMPH % 32.5 %; LYMPH ABS # 2.37 K/uL (1.2-3.4); MEAN CELL VOLUME 91.2 fL (80-100); MEAN CORPUSCULAR HEMOGLOBIN 28.2 pg (25-34); MEAN CORPUSCULAR HGB CONC 30.9 g/dl (32-36); MEAN PLATELET VOLUME 10.2 fL (7.4-10.4); MONO % 9.9 %; NEUT % 51.9 %; PLATELET COUNT 196 K/uL (130-400); RED BLOOD COUNT 3.65 M/uL (4.2-5.4); WHITE BLOOD COUNT 7.29 K/uL (4.8-10.8)
[2017-02-10 06:53] LABS: BUN/CREATININE RATIO 17.2 (10-20); CALCIUM 8.9 mg/dl (8.5-10.1); CREATININE 1.6 mg/dl (0.60-1.20)
[2017-02-10 07:02] LABS: CKMB/CK RATIO 2.8 (0-3.0)
--- NOTE | 2017-02-10 07:13 | DIAGNOSTIC IMAGING REPORT ---
Brain MRI WITHOUT CONTRAST HISTORY: Altered mental status, dysmetria, dizzy TECHNIQUE: Multiplanar multisequence MRI of the brain was performed without the use of contrast. COMPARISON STUDY: Head CT 02/09/2017. FINDINGS: There is no mass, hematoma, midline shift, or acute infarct. The paranasal sinuses are clear. The mastoid air cells are clear. The ventricles and sulci demonstrate mild age-related involutional changes. Scattered foci of T2 hyperintensity seen within the periventricular and subcortical white matter are nonspecific but suggestive of mild microvascular ischemic changes. The major vascular flow voids at the skull base are well-maintained. Motion artifact. IMPRESSION: No acute intracranial abnormality. Scattered foci of T2 hyperintensity seen within the periventricular and subcortical white matter are nonspecific but favor microvascular ischemic change. Electronically signed by: Peter Olivarez M.D. 02/10/2017 7:12 AM Dictated Date/Time: 02/10/2017 7:09 AM
[2017-02-10] MEDS: INSULIN ASPART 100 UNITS/ML 3 ML PEN SC SCH ×4 (07:43→21:00)
[2017-02-10] MEDS: ATORVASTATIN 10 MG TAB PO SCH (07:56)
[2017-02-10] MEDS: METOPROLOL TARTRATE 25 MG TAB PO SCH ×2 (07:56→21:38)
[2017-02-10] MEDS: CYANOCOBALAMIN 500 MCG TAB (VIT B-12) PO SCH (07:57)
[2017-02-10] MEDS: VENLAFAXINE HCL 50 MG TAB PO SCH ×2 (07:57→21:37)
[2017-02-10] MEDS: PANTOprazole SOD 40 MG TAB PO SCH (07:57)
[2017-02-10 08:42] LABS: ESTIMATED AVERAGE GLUCOSE 131 mg/dl; HA1C FLAG Normal (Normal)
--- NOTE | 2017-02-10 10:46 | ECHOCARDIOGRAM REPORT ---
*NOTICE TO RECEIVING REPUBLICAN AGENCY This information is strictly Confidential and protected under [place] law. [place] law prohibits you from making any further disclosure of this information unless further disclosure is expressly permitted by the written consent of the person to whom it pertains or is authorized by law. A general authorization for the release of medical or other information is not sufficient for this purpose. Hospital accepts no responsibility if the information is made available to any other person, INCLUDING THE PATIENT. Interpretation Summary * Name: GRACE ELLINGTON Study Date: 02/10/2017 07:12 AM BP: 92/56 mmHg * Patient Location: C.2T\S\S230\S\1 HR: 73 * : 1945 (M/d/yyyy) Gender: Female Height: 57 in * Age: 71 yrs Ethnicity: CA Weight: 159 lb * Ordering Physician: Deven Johnson * Referring Physician: Self, Referred * Performed By: Gianna Sosa RDCS * * Reason For Study: Elevated troponin * BSA: 1.6 m2 * -- Conclusions -- * No regional wall motion abnormalities noted. * There is normal left ventricular wall thickness. * Ejection Fraction = >70 %. * The right ventricle is normal in size and function. * There is mild mitral annular calcification. * Grade I diastolic dysfunction, (abnormal relaxation pattern). Procedure Details * A complete two-dimensional transthoracic echocardiogram was performed (2D, M-mode, Doppler and color flow Doppler). * A contrast injection of Definity was performed to improve assessment of LV function. * Contrast was injected into an intravenous site in the right arm. * One vial of Definity ultrasound contrast was diluted in normal saline to a total volume of 10 ml. A total of '2' ml of solution was administered during imaging. * Lot # [id number] of Definity utilized for procedure. * Expiration date MAR 01. * The attending nurse who injected the contrast agent was Marisela Booker RN. Left Ventricle * The left ventricle is normal in size. * There is normal left ventricular wall thickness. * Left ventricular systolic function is normal. * Ejection Fraction = >70 %. * The left ventricular wall motion is normal. * No regional wall motion abnormalities noted. Right Ventricle * The right ventricle is normal in size and function. Atria * The left atrium is mildly dilated. * Right atrial size is normal. * There is no evidence of atrial septal defect, but resolution does not allow assessment for a patent foramen ovale. Mitral Valve * There is mild mitral annular calcification. * There is no mitral valve stenosis. * Significant mitral regurgitation is absent. Tricuspid Valve * The tricuspid valve is normal. * There is no tricuspid stenosis. * Significant tricuspid regurgitation is absent. * Doppler findings do not suggest pulmonary hypertension. Aortic Valve * The aortic valve is trileaflet. * The aortic valve is mildly calcified. * Aortic stenosis is absent. * There is no significant aortic regurgitation. Pulmonic Valve * The pulmonary valve is not well seen, but the Doppler examination is normal without significant regurgitation or stenosis. Great Vessels * The aortic root and proximal ascending aorta are normal sized. Pericardium/Pleural * There is no pericardial effusion. Great Vessels * Normal inferior vena cava diameter and respiratory variation suggests normal central venous pressure. * Normal inferior vena cava size and collapsability with sniff indicates a normal right atrial pressure of 3 mmHg Left Ventricular Diastolic Function * Grade I diastolic dysfunction, (abnormal relaxation pattern). MMode 2D Measurements and Calculations IVSd 0.96 cm LVIDd 4.7 cm LVIDs 2.6 cm LVPWd 10 cm IVS/LVPW 0.96 FS 43.9 % EDV(Teich) 102.0 ml ESV(Teich) 25.4 ml EF(Teich) 75.1 % EDV(cubed) 103.4 ml ESV(cubed) 18.2 ml EF(cubed) 82.4 % LV mass(C)d 159.0 grams LV mass(C)dI 97.5 grams/m\S\2 SV(Teich) 76.7 ml SI(Teich) 47.0 ml/m\S\2 SV(cubed) 85.1 ml SI(cubed) 52.2 ml/m\S\2 Ao root diam 3.5 cm Ao root area 9.7 cm\S\2 LA dimension 3.2 cm asc Aorta Diam 3.2 cm LA/Ao 0.91 LVOT diam 2.0 cm LVOT area 3.2 cm\S\2 LVAd ap4 25.3 cm\S\2 LVLd ap4 6.9 cm EDV(MOD-sp4) 75.9 ml EDV(sp4-el) 78.4 ml LVAs ap4 12.9 cm\S\2 LVLs ap4 6.4 cm ESV(MOD-sp4) 21.8 ml ESV(sp4-el) 22.2 ml EF(MOD-sp4) 71.2 % EF(sp4-el) 71.7 % LVAd ap2 27.6 cm\S\2 LVLd ap2 7.2 cm EDV(MOD-sp2) 88.0 ml EDV(sp2-el) 90.2 ml LVAs ap2 11.8 cm\S\2 LVLs ap2 5.5 cm ESV(MOD-sp2) 21.3 ml ESV(sp2-el) 21.6 ml EF(MOD-sp2) 75.8 % EF(sp2-el) 76.0 % LVLd %diff 3.6 % EDV(MOD-bp) 82.9 ml LVLs %diff -16.13 % ESV(MOD-bp) 22.4 ml EF(MOD-bp) 73.0 % SV(MOD-sp4) 54.1 ml SI(MOD-sp4) 33.1 ml/m\S\2 SV(MOD-sp2) 66.7 ml SI(MOD-sp2) 40.9 ml/m\S\2 SV(MOD-bp) 60.5 ml SI(MOD-bp) 37.1 ml/m\S\2 SV(sp4-el) 56.2 ml SI(sp4-el) 34.4 ml/m\S\2 SV(sp2-el) 68.6 ml SI(sp2-el) 42.0 ml/m\S\2 Doppler Measurements and Calculations MV E max loretta 116.4 cm/sec MV A max loretta 141.2 cm/sec MV E/A 0.82 MV dec time 0.26 sec Ao V2 max 204.0 cm/sec Ao max PG 16.6 mmHg Ao max PG (full) 11.2 mmHg NELSON(V,A) 1.9 cm\S\2 NELSON(V,D) 1.9 cm\S\2 LV V1 max PG 5.5 mmHg LV V1 max 117.1 cm/sec PA V2 max 107.2 cm/sec PA max PG 4.6 mmHg PA acc slope 766.3 cm/sec\S\2 PA acc time 0.11 sec TR max loretta 302.8 cm/sec PA pr(Accel) 28.3 mmHg
[2017-02-10 12:32] LABS: CKMB/CK RATIO 1.9 (0-3.0)
--- NOTE | 2017-02-10 14:13 | Pharmacy Progress Note ---
Glycemic Control Intl Consult Date of Service February 10, 2017. Scope Glycemic Pharmacist consulted by Dr Johnson on 02/10/17 for glycemic control and to write orders per [facility] inpatient glycemic control protocol Objective Weight (Kilograms): 71.800 Accuchecks BSG (last 24hrs): Test 02/09/17 21:59 02/09/17 22:02 02/10/17 05:35 02/10/17 06:39 Bedside Glucose 78 mg/dl (70-90) 59 mg/dl (70-90) Random Glucose 77 mg/dl (70-99) 57 mg/dl (70-99) Test 02/10/17 07:00 02/10/17 07:19 02/10/17 11:32 Bedside Glucose 65 mg/dl (70-90) 93 mg/dl (70-90) 93 mg/dl (70-90) Laboratory Data (last 24hrs) Test 02/09/17 22:02 02/10/17 05:35 Anion Gap 9.0 mmol/L 6.0 mmol/L BUN/Creatinine Ratio 15.9 17.2 Blood Urea Nitrogen 29 mg/dl 28 mg/dl Creatinine 1.80 mg/dl 1.60 mg/dl Potassium Level 4.5 mmol/L 5.0 mmol/L Sodium Level 138 mmol/L 141 mmol/L White Blood Count 8.17 K/uL 7.29 K/uL Red Blood Count 3.57 M/uL 3.65 M/uL Hemoglobin 10.6 g/dL 10.3 g/dL Hematocrit 32.5 % 33.3 % Mean Corpuscular Volume 91.0 fL 91.2 fL Mean Corpuscular Hemoglobin 29.7 pg 28.2 pg Mean Corpuscular Hemoglobin Concent 32.6 g/dl 30.9 g/dl Platelet Count 217 K/uL 196 K/uL Mean Platelet Volume 10.3 fL 10.2 fL Neutrophils (%) (Auto) 54.1 % 51.9 % Lymphocytes (%) (Auto) 30.1 % 32.5 % Monocytes (%) (Auto) 10.3 % 9.9 % Eosinophils (%) (Auto) 4.9 % 5.1 % Basophils (%) (Auto) 0.4 % 0.3 % Neutrophils # (Auto) 4.42 K/uL 3.79 K/uL Lymphocytes # (Auto) 2.46 K/uL 2.37 K/uL Monocytes # (Auto) 0.84 K/uL 0.72 K/uL Eosinophils # (Auto) 0.40 K/uL 0.37 K/uL Basophils # (Auto) 0.03 K/uL 0.02 K/uL Hemoglobin A1c 6.2 % HbA1c Test 02/10/17 05:35 Hemoglobin A1c 6.2 % (4.5-5.6) H Recent Pertinent Medications Outpatient Anti-diabetic Regimen: * Metformin 500 mg BID The patient is currently receiving: * Basal insulin: None * Correctional Insulin: Novolog Correction per scale ACHS Goal Range: Low 140 mg/dL - High 180 mg/dL Correction Factor: 35 mg/dL/unit * Prandial insulin: Per carb ratio of 1 unit per 20 grams CHO consumed * Oral Agents: Held for admission Risk Factors for Insulin Resistance: * Diet: type 2 diabetes/ AHA Assessment & Plan ASSESSMENT: 02/10/17 * 71 y/o female with type 2 diabetes, admitted with altered mental status and hypoglycemia * Pt is maintained on oral antidiabetic agents as an outpatient * Oral agents are not recommended for inpatient use d/t drug interactions, changing PO intake, and difficulty titrating for acute hyper/hypoglycemia. ADA recommends re-initiating outpatient oral agents 1-2 days prior to discharge if/ when appropriate if they were held on admission. * Will hold oral agents for admission and utilize SQ bolus insulin regimen which is the recommended regimen for inpatient glycemic control. * Will initiate weight based insulin dosing for insulin jagdeep patient and titrate based on BSG trends. * Currently ordered a CF and CR but will remove the CR for now in light of the recent hypoglycemia and well controlled A1c on a single oral agent * ADA & AACE recommend a goal blood sugar range 140-180 mg/dl for the majority of critically ill & non-critically ill patients. However, more stringent targets may be selected in individual cases. PLAN FOR INPATIENT GLYCEMIC CONTROL: * No basal insulin * Continue correction factor of 35 mg/dl/unit * REMOVE carb ratio * Continue goal range of Low 140 mg/dL - High 180 mg/dL * Please note that the plan above was derived based on current level of insulin resistance and hospital stress. These recommendations are appropriate for inpatient admission only. Plan of care upon discharge will need to be reassessed to avoid potential outpatient hypo/hyperglycemia. Thank you.
--- NOTE | 2017-02-10 16:46 | Progress Note ---
Internal Med Progress Note Date of Service: February 10, 2017. Provider Documentation: SUBJECTIVE: The patient was seen and examined Admitted with Confusion Feels a lot better now Denies any complaints OBJECTIVE: Vital Signs-as noted below Exam: General-no distress at rest Eyes-normal ENT-normal Neck-supple Lungs-Clear to auscultate bilaterally Heart-Regular,no murmur appreciated Abdomen-Benign,no masses,bowel sound present Extremities-No edema Neuro-AAOx3 Lab data as noted below. ASSESSMENT & PLAN: ALTERED MENTAL STATUS Presents with 2 day history of slow to answer questions,mild confusion and gait imbalance Likely due to Use of Narcotic,Dehydration with Acute Renal Failure on CKD 3, Hypoglycemia and or infection CT head negative,ff up MRI Brain Check Orthostasis Decrease dose of Morphine and Effexor Clinically better this AM ACUTE RENAL FAILURE ON CKD 3 - possible pre renal etiology - hold Metformin, Lisinopril - IV NSS -Monitor Creatinine MILD CARDIAC MARKER ELEVATION HISTORY OF CAD - no cardiac symptoms -non specific t wave inversion in inferior leads - serial cardiac markers,doubt any ACS -echo-pending DM 2 hold Metformin ISS Has Hypoglycemia Will not prescribe Metformion on discharge HYPERTENSION hold Lisinopril continue Metoprolol B12 AND THIAMINE DEFICIENCY on supplements check levels RHEUMATOID ARTHRITIS On Plaquenil 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 Lucas in 08/2016, no note of discontinuing Prednisone OP appointment with Dr Lucas DVT PROPHYLAXIS SCDs CODE status-Full PT/OT evaluation Likely discharge tomorrow Discussed with the Vital Signs: Date Time Temp Pulse Resp B/P Pulse Ox O2 Delivery O2 Flow Rate FiO2 02/10/17 15:15 37.0 61 20 111/70 97 Nasal Cannula 2.0 02/10/17 15:00 Nasal Cannula 2.0 02/10/17 12:14 37.2 62 16 146/54 95 Nasal Cannula 2.0 02/10/17 12:00 96 Nasal Cannula 02/10/17 08:00 37.0 80 19 137/73 94 Nasal Cannula 2.0 02/10/17 08:00 96 Nasal Cannula 02/10/17 04:00 96 Nasal Cannula 02/10/17 03:29 37.5 73 20 92/56 96 Nasal Cannula 2.0 02/10/17 02:04 37.7 67 18 123/60 92 Room Air 02/10/17 01:25 37.4 68 18 152/69 94 02/10/17 01:02 68 18 152/69 94 Nasal Cannula 3.0 02/09/17 23:00 67 18 115/68 100 Nasal Cannula 3.0 02/09/17 22:27 64 02/09/17 22:06 90 02/09/17 21:05 37.4 72 20 104/48 92 Room Air Lab Results: Results Past 24 Hours Test 02/09/17 21:59 02/09/17 22:02 02/09/17 22:28 02/10/17 00:50 Range/Units Bedside Glucose 78 70-90 mg/dl White Blood Count 8.17 4.8-10.8 K/uL Red Blood Count 3.57 4.2-5.4 M/uL Hemoglobin 10.6 12.0-16.0 g/dL Hematocrit 32.5 37-47 % Mean Corpuscular Volume 91.0 80-100 fL Mean Corpuscular Hemoglobin 29.7 25-34 pg Mean Corpuscular Hemoglobin Concent 32.6 32-36 g/dl Platelet Count 217 130-400 K/uL Mean Platelet Volume 10.3 7.4-10.4 fL Neutrophils (%) (Auto) 54.1 % Lymphocytes (%) (Auto) 30.1 % Monocytes (%) (Auto) 10.3 % Eosinophils (%) (Auto) 4.9 % Basophils (%) (Auto) 0.4 % Neutrophils # (Auto) 4.42 1.4-6.5 K/uL Lymphocytes # (Auto) 2.46 1.2-3.4 K/uL Monocytes # (Auto) 0.84 0.11-0.59 K/uL Eosinophils # (Auto) 0.40 0-0.5 K/uL Basophils # (Auto) 0.03 0-0.2 K/uL RDW Standard Deviation 52.2 36.4-46.3 fL RDW Coefficient of Variation 15.5 11.5-14.5 % Immature Granulocyte % (Auto) 0.2 % Immature Granulocyte # (Auto) 0.02 0.00-0.02 K/uL Sodium Level 138 136-145 mmol/L Potassium Level 4.5 3.5-5.1 mmol/L Chloride Level 104 98-107 mmol/L Carbon Dioxide Level 25 21-32 mmol/L Anion Gap 9.0 3-11 mmol/L Blood Urea Nitrogen 29 7-18 mg/dl Creatinine 1.80 0.60-1.20 mg/dl Est Creatinine Clear Calc Drug Dose 24.3 ml/min Estimated GFR () 32.7 Estimated GFR (Non- 28.2 BUN/Creatinine Ratio 15.9 10-20 Random Glucose 77 70-99 mg/dl Calcium Level 8.6 8.5-10.1 mg/dl Magnesium Level 1.9 1.8-2.4 mg/dl Total Bilirubin 0.3 0.2-1 mg/dl Direct Bilirubin 0.1 0-0.2 mg/dl Aspartate Amino Transf (AST/SGOT) 26 15-37 U/L Alanine Aminotransferase (ALT/SGPT) 14 12-78 U/L Alkaline Phosphatase 56 45-117 U/L Total Creatine Kinase 118 26-192 U/L Creatine Kinase MB 3.8 0.5-3.6 ng/ml Creatine Kinase MB Ratio 3.2 0-3.0 Troponin I 0.112 0-0.045 ng/ml Total Protein 6.4 6.4-8.2 gm/dl Albumin 3.7 3.4-5.0 gm/dl Thyroid Stimulating Hormone (TSH) 1.350 0.300-4.500 uIu/ml Prothrombin Time 10.4 9.0-12.0 SECONDS Prothromb Time International Ratio 1.0 0.9-1.1 Activated Partial Thromboplast Time 24.5 21.0-31.0 SECONDS Partial Thromboplastin Ratio 0.9 Urine Color YELLOW Urine Appearance CLEAR CLEAR Urine pH 5.0 4.5-7.5 Urine Specific [place] 1.018 1.000-1.030 Urine Protein NEG NEG Urine Glucose (UA) NEG NEG Urine Ketones NEG NEG Urine Occult Blood NEG NEG Urine Nitrite NEG NEG Urine Bilirubin NEG NEG Urine Urobilinogen NEG NEG Urine Leukocyte Esterase MODERATE NEG Urine WBC (Auto) 10-30 0-5 /hpf Urine RBC (Auto) 0-4 0-4 /hpf Urine Hyaline Casts (Auto) 5-10 0-5 /lpf Urine Epithelial Cells (Auto) >30 0-5 /lpf Urine Bacteria (Auto) NEG NEG Test 02/10/17 05:35 02/10/17 06:39 02/10/17 07:00 02/10/17 07:19 Range/Units White Blood Count 7.29 4.8-10.8 K/uL Red Blood Count 3.65 4.2-5.4 M/uL Hemoglobin 10.3 12.0-16.0 g/dL Hematocrit 33.3 37-47 % Mean Corpuscular Volume 91.2 80-100 fL Mean Corpuscular Hemoglobin 28.2 25-34 pg Mean Corpuscular Hemoglobin Concent 30.9 32-36 g/dl Platelet Count 196 130-400 K/uL Mean Platelet Volume 10.2 7.4-10.4 fL Neutrophils (%) (Auto) 51.9 % Lymphocytes (%) (Auto) 32.5 % Monocytes (%) (Auto) 9.9 % Eosinophils (%) (Auto) 5.1 % Basophils (%) (Auto) 0.3 % Neutrophils # (Auto) 3.79 1.4-6.5 K/uL Lymphocytes # (Auto) 2.37 1.2-3.4 K/uL Monocytes # (Auto) 0.72 0.11-0.59 K/uL Eosinophils # (Auto) 0.37 0-0.5 K/uL Basophils # (Auto) 0.02 0-0.2 K/uL RDW Standard Deviation 52.2 36.4-46.3 fL RDW Coefficient of Variation 15.5 11.5-14.5 % Immature Granulocyte % (Auto) 0.3 % Immature Granulocyte # (Auto) 0.02 0.00-0.02 K/uL Sodium Level 141 136-145 mmol/L Potassium Level 5.0 3.5-5.1 mmol/L Chloride Level 107 98-107 mmol/L Carbon Dioxide Level 28 21-32 mmol/L Anion Gap 6.0 3-11 mmol/L Blood Urea Nitrogen 28 7-18 mg/dl Creatinine 1.60 0.60-1.20 mg/dl Est Creatinine Clear Calc Drug Dose 27.2 ml/min Estimated GFR () 37.7 Estimated GFR (Non- 32.5 BUN/Creatinine Ratio 17.2 10-20 Random Glucose 57 70-99 mg/dl Estimated Average Glucose 131 mg/dl Hemoglobin A1c 6.2 4.5-5.6 % Calcium Level 8.9 8.5-10.1 mg/dl Total Creatine Kinase 118 26-192 U/L Creatine Kinase MB 3.3 0.5-3.6 ng/ml Creatine Kinase MB Ratio 2.8 0-3.0 Troponin I 0.081 0-0.045 ng/ml Vitamin B12 Level > 1999 211-911 pg/mL Hepatitis C Antibody Screen NEG NEG Bedside Glucose 59 65 93 70-90 mg/dl Test 02/10/17 11:32 02/10/17 11:40 Range/Units Bedside Glucose 93 70-90 mg/dl Total Creatine Kinase 106 26-192 U/L Creatine Kinase MB 2.0 0.5-3.6 ng/ml Creatine Kinase MB Ratio 1.9 0-3.0 Troponin I 0.096 0-0.045 ng/ml Microbiology Results 02/10/17 Urine Culture, Received Pending
[2017-02-10] MEDS: LATANOPROST 0.005% OP SOLN 2.5 ML BTL OPB SCH (21:36)
[2017-02-10] MEDS: DOCUSATE SODIUM 100 MG CAP PO SCH (21:36)
[2017-02-10] MEDS: ASPIRIN 81 MG ECTAB PO SCH (21:37)
[2017-02-10] MEDS: THIAMINE HCL 50 MG TAB PO SCH (21:38)
[2017-02-11] VITALS (11 sets, daily range): BP systolic 113–158; BP diastolic 58–75; PULSE 60–80; TEMP 36.5–37.5; O2SAT 92–99
[2017-02-11] MEDS: INSULIN ASPART 100 UNITS/ML 3 ML PEN SC SCH ×4 (07:00→20:51)
[2017-02-11 07:04] LABS: BUN/CREATININE RATIO 14.8 (10-20); CALCIUM 8.5 mg/dl (8.5-10.1); POTASSIUM 4.5 mmol/L (3.5-5.1)
[2017-02-11] MEDS: SODIUM CHLORIDE 0.9% 1000ML 1,000 ML IV SCH ×2 (07:45→17:12)
[2017-02-11] MEDS: VENLAFAXINE HCL 50 MG TAB PO SCH ×2 (09:11→20:49)
[2017-02-11] MEDS: ATORVASTATIN 10 MG TAB PO SCH (09:12)
[2017-02-11] MEDS: METOPROLOL TARTRATE 25 MG TAB PO SCH ×2 (09:12→20:48)
[2017-02-11] MEDS: CYANOCOBALAMIN 500 MCG TAB (VIT B-12) PO SCH (09:12)
[2017-02-11] MEDS: PANTOprazole SOD 40 MG TAB PO SCH (09:12)
--- NOTE | 2017-02-11 13:11 | Progress Note ---
Internal Med Progress Note Date of Service: February 11, 2017. Provider Documentation: SUBJECTIVE: The patient was seen and examined Admitted with Confusion Feels a lot better now Denies any complaints No more confusion ,no more hypoglycemia OBJECTIVE: Vital Signs-as noted below Exam: General-no distress at rest Eyes-normal ENT-normal Neck-supple Lungs-Clear to auscultate bilaterally Heart-Regular,no murmur appreciated Abdomen-Benign,no masses,bowel sound present Extremities-No edema Neuro-AAOx3 Lab data as noted below. ASSESSMENT & PLAN: ALTERED MENTAL STATUS-resolved Presents with 2 day history of slow to answer questions,mild confusion and gait imbalance Likely due to Use of Narcotic,Dehydration with Acute Renal Failure on CKD 3, Hypoglycemia and or infection CT head negative,ff up MRI Brain Check Orthostasis Decrease dose of Morphine and Effexor Clinically better this AM No more confusion Increase ambulation May need Rehab ACUTE RENAL FAILURE ON CKD 3 - possible pre renal etiology - hold Metformin, Lisinopril - IV NSS -Monitor Creatinine-improved MILD CARDIAC MARKER ELEVATION HISTORY OF CAD - no cardiac symptoms -non specific t wave inversion in inferior leads - serial cardiac markers,doubt any ACS -ECHO:: * No regional wall motion abnormalities noted. * There is normal left ventricular wall thickness. * Ejection Fraction = >70 %. * The right ventricle is normal in size and function. * There is mild mitral annular calcification. * Grade I diastolic dysfunction, (abnormal relaxation pattern). 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 Lucas in 08/2016, no note of discontinuing Prednisone OP appointment with Dr Lucas DVT PROPHYLAXIS SCDs CODE status-Full PT/OT evaluation Likely discharge today Discussed with the Vital Signs: Date Time Temp Pulse Resp B/P Pulse Ox O2 Delivery O2 Flow Rate FiO2 02/11/17 12:10 36.5 66 18 139/62 98 02/11/17 12:00 95 Room Air 02/11/17 08:00 95 Room Air 02/11/17 07:59 36.7 78 16 145/58 94 02/11/17 04:31 36.7 60 17 113/61 92 Room Air 02/11/17 04:00 92 Room Air 02/10/17 23:59 98 Nasal Cannula 2.0 02/10/17 22:53 37.4 60 16 135/74 98 Nasal Cannula 2.0 02/10/17 20:00 95 Nasal Cannula 2.0 02/10/17 19:39 37.2 60 18 124/74 98 Nasal Cannula 2.0 02/10/17 15:15 37.0 61 20 111/70 97 Nasal Cannula 2.0 02/10/17 15:00 Nasal Cannula 2.0 Lab Results: Results Past 24 Hours Test 02/10/17 16:49 02/10/17 20:04 02/11/17 05:44 02/11/17 06:54 Range/Units Bedside Glucose 101 124 91 70-90 mg/dl Sodium Level 143 136-145 mmol/L Potassium Level 4.5 3.5-5.1 mmol/L Chloride Level 110 98-107 mmol/L Carbon Dioxide Level 29 21-32 mmol/L Anion Gap 4.0 3-11 mmol/L Blood Urea Nitrogen 15 7-18 mg/dl Creatinine 1.00 0.60-1.20 mg/dl Est Creatinine Clear Calc Drug Dose 43.5 ml/min Estimated GFR () 66.6 Estimated GFR (Non- 57.4 BUN/Creatinine Ratio 14.8 10-20 Random Glucose 85 70-99 mg/dl Calcium Level 8.5 8.5-10.1 mg/dl Test 02/11/17 11:10 Range/Units Bedside Glucose 96 70-90 mg/dl
--- NOTE | 2017-02-11 15:38 | Pharmacy Progress Note ---
Pharmacy Glycemic Sign Off Nt Date of Service February 11, 2017. Assessment & Plan ASSESSMENT: * Pharmacy was consulted by Dr Johnson on 02/10/17 for glycemic control and to write orders per [facility] inpatient glycemic control protocol. * Patient admitted with confusion and hypoglycemia. Metformin was held and correctional insulin was ordered to cover BSG elevations if needed. * Patient has received zero units of insulin since admission. * BSGs ranging 85 to 124 mg/dl * Patient admitted with hypoglycemia * Do not anticipate further changes in patient status that would quickly deteriorate glycemic control (i.e. patient to be NPO for upcoming procedure, steroids tapering, starting tube feedings, etc). * Please see recommendations for outpatient antidiabetic regimen below. PLAN FOR INPATIENT GLYCEMIC CONTROL: No changes needed to current regimen. * Continue NovoLog per scale ACHS * Goal range = 140 180 mg/dl * CF = 35 mg/dl/unit * A1c added to discharge instructions to be communicated to PCP. * Pharmacy is signing off of glycemic consult and will no longer be making adjustments to inpatient regimen. Please feel free to re-consult if needed. Thank you. DISCHARGE RECOMMENDATIONS: * A1c 6.2 % on 02/10/17 * Recommend discontinuation of metformin due to risk of accumulation in the setting of CKD
[2017-02-11] MEDS: MoRPHine SULFATE CR 15 MG TAB (MS CONTIN) PO PRN (16:02)
[2017-02-11] MEDS ORDERED: NURSING VERBAL MED ORDER ONE (17:45)
[2017-02-11] MEDS: THIAMINE HCL 50 MG TAB PO SCH (20:49)
[2017-02-11] MEDS: LATANOPROST 0.005% OP SOLN 2.5 ML BTL OPB SCH (20:50)
[2017-02-11] MEDS: DOCUSATE SODIUM 100 MG CAP PO SCH (20:50)
[2017-02-11] MEDS: ASPIRIN 81 MG ECTAB PO SCH (20:51)
[2017-02-11] MEDS: ACETAMINOPHEN 325 MG TAB PO PRN (20:57)
[2017-02-12] VITALS (8 sets, daily range): BP systolic 136–196; BP diastolic 71–91; PULSE 71–91; TEMP 36.4–37.6; O2SAT 92–94
[2017-02-12] MEDS ORDERED: METOPROLOL TARTRATE 25 MG TAB PO ONE (01:32)
[2017-02-12 08:02] LABS: BUN/CREATININE RATIO 11.5 (10-20); CALCIUM 8.8 mg/dl (8.5-10.1); CREATININE 0.81 mg/dl (0.60-1.20); POTASSIUM 4.2 mmol/L (3.5-5.1)
[2017-02-12] MEDS: CYANOCOBALAMIN 500 MCG TAB (VIT B-12) PO SCH ×2 (08:17→20:28)
[2017-02-12] MEDS: ATORVASTATIN 10 MG TAB PO SCH (08:17)
[2017-02-12] MEDS: VENLAFAXINE HCL 50 MG TAB PO SCH ×2 (08:17→20:29)
[2017-02-12] MEDS: PANTOprazole SOD 40 MG TAB PO SCH (08:18)
[2017-02-12] MEDS: INSULIN ASPART 100 UNITS/ML 3 ML PEN SC SCH ×4 (08:20→20:34)
[2017-02-12] MEDS ORDERED: NURSING VERBAL MED ORDER ONE (09:00)
[2017-02-12] MEDS ORDERED: CLONIDINE HCL 0.1 MG TAB PO ONE (09:00)
[2017-02-12] MEDS ORDERED: LISINOPRIL 2.5 MG TAB PO ONE (10:00)
[2017-02-12] MEDS: ACETAMINOPHEN 325 MG TAB PO PRN (11:37)
--- NOTE | 2017-02-12 17:52 | Progress Note ---
Internal Med Progress Note Date of Service: Feb 12, 2017. Provider Documentation: SUBJECTIVE: The patient was seen and examined Admitted with Confusion Feels a lot better now BP was noted to be high this AM with some confusion No confusion during my exam OBJECTIVE: Vital Signs-as noted below Exam: General-no distress at rest Eyes-normal ENT-normal Neck-supple Lungs-Clear to auscultate bilaterally Heart-Regular,no murmur appreciated Abdomen-Benign,no masses,bowel sound present Extremities-No edema Neuro-AAOx3 Lab data as noted below. ASSESSMENT & PLAN: ALTERED MENTAL STATUS-resolved Presents with 2 day history of slow to answer questions,mild confusion and gait imbalance Likely due to Use of Narcotic,Dehydration with Acute Renal Failure on CKD 3, Hypoglycemia and or infection CT head negative,ff up MRI Brain Check Orthostasis Decrease dose of Morphine and Effexor Clinically better this AM No more confusion Increase ambulation May need Rehab HYPERTENSION-uncontrolled hold Lisinopril continue Metoprolol Noted to be high with acute confusion Lisinopril restarted and rec\eived one dose of Clonidine ACUTE RENAL FAILURE ON CKD 3 - possible pre renal etiology - hold Metformin, Lisinopril - IV NSS -Monitor Creatinine-improved MILD CARDIAC MARKER ELEVATION HISTORY OF CAD - no cardiac symptoms -non specific t wave inversion in inferior leads - serial cardiac markers,doubt any ACS -ECHO:: * No regional wall motion abnormalities noted. * There is normal left ventricular wall thickness. * Ejection Fraction = >70 %. * The right ventricle is normal in size and function. * There is mild mitral annular calcification. * Grade I diastolic dysfunction, (abnormal relaxation pattern). 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 Lucas in 08/2016, no note of discontinuing Prednisone OP appointment with Dr Lucas DVT PROPHYLAXIS SCDs CODE status-Full PT/OT evaluation Likely discharge today Discussed with the -likely discharge tomorrow Vital Signs: Date Time Temp Pulse Resp B/P (MAP) Pulse Ox O2 Delivery O2 Flow Rate FiO2 02/12/17 16:00 Room Air 02/12/17 15:49 36.4 71 16 149/84 (105) 94 Room Air 02/12/17 10:06 91 136/76 (96) 02/12/17 08:43 72 196/91 (126) 182/90 (120) 02/12/17 08:00 Room Air 02/12/17 07:33 37.6 71 20 168/74 (105) 92 02/12/17 06:14 73 165/77 (106) 02/12/17 01:22 74 181/71 (107) 02/12/17 00:13 Room Air 02/11/17 23:05 37.0 80 18 94 Room Air 02/11/17 20:31 73 149/75 (99) 02/11/17 20:00 Room Air 02/11/17 17:58 37.5 69 24 157/72 (100) 92 Room Air Lab Results: Results Past 24 Hours Test 02/11/17 19:45 02/12/17 06:54 02/12/17 07:13 02/12/17 11:01 Range/Units Bedside Glucose 96 121 112 70-90 mg/dl Sodium Level 138 136-145 mmol/L Potassium Level 4.2 3.5-5.1 mmol/L Chloride Level 102 98-107 mmol/L Carbon Dioxide Level 27 21-32 mmol/L Anion Gap 9.0 3-11 mmol/L Blood Urea Nitrogen 9 7-18 mg/dl Creatinine 0.81 0.60-1.20 mg/dl Est Creatinine Clear Calc Drug Dose 53.7 ml/min Estimated GFR () 85.9 Estimated GFR (Non- 74.1 BUN/Creatinine Ratio 11.5 10-20 Random Glucose 113 70-99 mg/dl Calcium Level 8.8 8.5-10.1 mg/dl
[2017-02-12] MEDS: THIAMINE HCL 50 MG TAB PO SCH (20:28)
[2017-02-12] MEDS: DOCUSATE SODIUM 100 MG CAP PO SCH (20:28)
[2017-02-12] MEDS: ASPIRIN 81 MG ECTAB PO SCH (20:29)
[2017-02-12] MEDS: METOPROLOL TARTRATE 25 MG TAB PO SCH (20:29)
[2017-02-12] MEDS: LATANOPROST 0.005% OP SOLN 2.5 ML BTL OPB SCH (20:30)
[2017-02-13] VITALS: O2SAT 94
[2017-02-13 00:16] VITALS: BP 164/81; PULSE 70; TEMP 37.2; O2SAT 93
[2017-02-13] MEDS: INSULIN ASPART 100 UNITS/ML 3 ML PEN SC SCH ×2 (06:30→11:00)
[2017-02-13 07:34] VITALS: BP 148/80; PULSE 73; TEMP 37; O2SAT 94
[2017-02-13 07:58] LABS: BUN/CREATININE RATIO 13.1 (10-20); CALCIUM 8.3 mg/dl (8.5-10.1); CREATININE 0.83 mg/dl (0.60-1.20); POTASSIUM 3.8 mmol/L (3.5-5.1)
[2017-02-13 08:00] VITALS: O2SAT 94
[2017-02-13] MEDS ORDERED: LISINOPRIL 2.5 MG TAB PO SCH (08:00)
[2017-02-13] MEDS: VENLAFAXINE HCL 50 MG TAB PO SCH (08:26)
[2017-02-13] MEDS: ATORVASTATIN 10 MG TAB PO SCH (08:27)
[2017-02-13] MEDS: METOPROLOL TARTRATE 25 MG TAB PO SCH (08:27)
[2017-02-13] MEDS: PANTOprazole SOD 40 MG TAB PO SCH (08:27)
[2017-02-13] MEDS: MoRPHine SULFATE CR 15 MG TAB (MS CONTIN) PO PRN (08:30)
[2017-02-13] MEDS ORDERED: BISACODYL 10 MG SUPP PR STA (11:12)
--- NOTE | 2017-02-13 12:42 | Progress Note ---
Internal Med Progress Note Date of Service: Feb 13, 2017. Provider Documentation: SUBJECTIVE: The patient was seen and examined Admitted with Confusion Feels a lot better now BP is controlled No more confusion Ready to be discharged OBJECTIVE: Vital Signs-as noted below Exam: General-no distress at rest Eyes-normal ENT-normal Neck-supple Lungs-Clear to auscultate bilaterally Heart-Regular,no murmur appreciated Abdomen-Benign,no masses,bowel sound present Extremities-No edema Neuro-AAOx3 Lab data as noted below. ASSESSMENT & PLAN: ALTERED MENTAL STATUS-resolved Presents with 2 day history of slow to answer questions,mild confusion and gait imbalance Likely due to Use of Narcotic,Dehydration with Acute Renal Failure on CKD 3, Hypoglycemia and or infection CT head negative,ff up MRI Brain Check Orthostasis Decrease dose of Morphine and Effexor Clinically better this AM No more confusion Increase ambulation Does not want to go to Rehab Discharge home today following bowel movement HYPERTENSION-uncontrolled hold Lisinopril continue Metoprolol Noted to be high with acute confusion Lisinopril restarted and received one dose of Clonidine BP is well controlled ACUTE RENAL FAILURE ON CKD 3 - possible pre renal etiology - hold Metformin, Lisinopril - IV NSS -Monitor Creatinine-improved MILD CARDIAC MARKER ELEVATION HISTORY OF CAD - no cardiac symptoms -non specific t wave inversion in inferior leads - serial cardiac markers,doubt any ACS -ECHO:: * No regional wall motion abnormalities noted. * There is normal left ventricular wall thickness. * Ejection Fraction = >70 %. * The right ventricle is normal in size and function. * There is mild mitral annular calcification. * Grade I diastolic dysfunction, (abnormal relaxation pattern). 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 Lucas in 08/2016, no note of discontinuing Prednisone OP appointment with Dr Lucas DVT PROPHYLAXIS SCDs CODE status-Full PT/OT evaluation Likely discharge today Discussed with the -likely discharge tomorrow Vital Signs: Date Time Temp Pulse Resp B/P (MAP) Pulse Ox O2 Delivery O2 Flow Rate FiO2 02/13/17 08:00 94 Room Air 02/13/17 07:34 37.0 73 18 148/80 (102) 94 02/13/17 00:16 37.2 70 18 164/81 (108) 93 Room Air 02/13/17 00:00 94 Room Air 02/12/17 20:38 85 166/86 (112) 02/12/17 20:00 94 Room Air 02/12/17 16:00 Room Air 02/12/17 15:49 36.4 71 16 149/84 (105) 94 Room Air Lab Results: Results Past 24 Hours Test 02/12/17 16:52 02/12/17 19:57 02/13/17 06:50 02/13/17 07:18 Range/Units Bedside Glucose 75 113 138 70-90 mg/dl Sodium Level 137 136-145 mmol/L Potassium Level 3.8 3.5-5.1 mmol/L Chloride Level 101 98-107 mmol/L Carbon Dioxide Level 27 21-32 mmol/L Anion Gap 9.0 3-11 mmol/L Blood Urea Nitrogen 11 7-18 mg/dl Creatinine 0.83 0.60-1.20 mg/dl Est Creatinine Clear Calc Drug Dose 52.4 ml/min Estimated GFR () 83.4 Estimated GFR (Non- 71.9 BUN/Creatinine Ratio 13.1 10-20 Random Glucose 85 70-99 mg/dl Calcium Level 8.3 8.5-10.1 mg/dl Test 02/13/17 11:11 Range/Units Bedside Glucose 94 70-90 mg/dl
[2017-02-13 14:37] VITALS: BP 134/71; PULSE 66; TEMP 36.8; O2SAT 93
--- NOTE | 2017-02-13 16:50 | Discharge Instructions ---
Discharge Instructions Date of Service Feb 13, 2017. Admission Reason for Admission: Altered Mental Status Discharge Discharge Diagnosis / Problem: Change in mental Status-resolved Discharge Goals Goal(s): Prevent Disease Progression Activity Recommendations Activity Limitations: resume your previous activity . Instructions / Follow-Up Instructions / Follow-Up Dr Garcia on 02/19/17 at 9:30PM Current Hospital Diet Patient's current hospital diet: Diabetes Type 2 Diet, AHA Diet (Heart Healthy) Discharge Diet Recommended Diet: Diabetes Type 2 Diet Pending Studies Studies pending at discharge: no Laboratory Results Hemoglobin A1c Test 02/10/17 05:35 Range/Units Estimated Average Glucose 131 mg/dl Hemoglobin A1c 6.2 H 4.5-5.6 % Medical Emergencies . Who to Call and When: Medical Emergencies: If at any time you feel your situation is an emergency, please call 911 immediately. . Non-Emergent Contact Non-Emergency issues call your: Primary Care Provider . Past History Medical & Surgical History: (1) Altered mental status (2) HTN (hypertension) (3) Asthma (4) DM type 2 (diabetes mellitus, type 2) (5) GERD (gastroesophageal reflux disease) (6) Depression (7) Rheumatoid arthritis (8) Dyslipidemia (9) S/P removal of ovarian cyst (10) S/P rotator cuff repair (11) S/p EGD (12) H/O colonoscopy (13) History of hysterectomy (14) S/P total knee arthroplasty (15) H/O cardiac catheterization . "Provider Documentation" section prepared by Kvein Rodriguez. . VTE Core Measure Inpt VTE Proph given/why not?: SCD's
[2017-02-13 16:54] VITALS: BP 134/71; PULSE 66; TEMP 36.8; O2SAT 93
--- NOTE | 2017-02-14 07:40 | Discharge Summary ---
Discharge Summary Date of Service Feb 14, 2017. Discharge Summary Admission Date: February 10, 2017 at 01:12 Discharge Date: Feb 13, 2017 Principal Diagnosis: Change in mental Status-resolved Secondary Diagnoses/Problems: Please see H&P and Hospital Progress note Medication Reconciliation Continued Medications: Albuterol Hfa (Ventolin Hfa) 200 Puffs/34865 Mcg Aers 2 PUFFS INH Q4 PRN for SOB/Wheezing Aspirin (Aspir-Low) 81 Mg Tab 81 MG PO HS Atorvastatin (Atorvastatin Calcium) 10 Mg Tab 10 MG PO DAILY Cyanocobalamin (Vitamin B12) 1,000 Mcg Tab 1000 MCG PO QAM Docusate Sodium (Colace) 100 Mg Cap 2 CAP PO HS Fluticasone Furoate-Vilanterol (Breo Ellipta) 1 Inh Inh 1 PUFF PO BID Folic Acid (Folvite) 1 Mg Tab 1 MG PO QPM, TAB Latanoprost (Latanoprost) 37 Drops/2.5 Ml Soln 1 DROP OPB HS Levalbuterol Hcl (Levalbuterol) 1.25 Mg/0.5 Ml Neb 1 DOSE NEB Q4 PRN for SOB/Wheezing Lisinopril (Lisinopril) 2.5 Mg Tab 2.5 MG PO DAILY Metoprolol Tartrate (Lopressor) (Lopressor) 25 Mg Tab 25 MG PO BID, TAB Morphine Cont Rel (Ms Contin) 15 Mg Tabcr 15 MG PO Q12H PRN for Pain, TAB Multiple Vitamins W/ Minerals (Ocuvite Lutein) 1 Cap Cap 1 CAP PO HS Nitroglycerin (Nitrostat) 0.4 Mg Tab 0.4 MG UT UD PRN for Chest Pain Pantoprazole Sodium (Protonix) 40 Mg Tab 40 MG PO QAM, TAB Polyethylene Glycol 3350 (Miralax) 1 Pow Pow 17 GM PO DAILY PRN for Constipation Prednisone (Prednisone) 2.5 Mg Tab 5 MG PO QAM, TAB Thiamine Hcl (Vitamin B-1) 50 Mg Tab 50 MG PO QPM, TAB Venlafaxine Hcl (Effexor) 75 Mg Tab 75 MG PO AMPM, TAB Discontinued Medications: Metformin Hcl (Glucophage) 500 Mg Tab 500 MG PO BID, TAB Admission Information HPI (per Admitting provider): 74 year old female with history of CAD, DM, HTN, CKD 3, Rheumatoid Arthritis, presenting with altered mental status x [address] Garcia for Primary Care. Patient was in her usual state of health until about a week ago when she started to feel "not up to par", weak. Denies fever/chills, nausea/vomiting, diarrhea. Appetite and oral intake has been decreased. Two days ago, she started to notice that she seems confused, slow to answer simple questions, and unsteady with her walking. Denies slurred speech, changes with vision, focal weakness/numbness. Symptoms worsened today prompting ER consult. VS stable at the ER. CT head: no acute process Troponin 0.3, EKG non specific t wave inversion inferior lead Crea increased from baseline 1.1 to 1.8 On exam, patient sitting up in bed, at bedside, comfortable, pleasant. Answers most questions appropriately. Was still unsteady walking to the bathroom. No other symptoms. 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 Status: Chronic (13) Heart disease Status: Chronic (14) HTN (hypertension) Status: Chronic (15) Migraines Status: Chronic (16) Osteoarthritis Status: Chronic (17) Peripheral neuropathy Status: Chronic (18) Pneumonia Status: Resolved (19) Rheumatoid arthritis Permanent Comment: on chronic steroids Status: Chronic Surgical Problems: (1) H/O cardiac catheterization Permanent Comment: cath 07/2013- single vessel CAD involving apical segment LAD , medical management indicated Status: Chronic (2) H/O colonoscopy Status: Chronic (3) History of hysterectomy Status: Chronic (4) S/p EGD Status: Chronic (5) S/P removal of ovarian cyst Status: Chronic (6) S/P rotator cuff repair Permanent Comment: right shoulder Status: Chronic (7) S/P total knee arthroplasty Permanent Comment: left knee Status: Chronic Family History Diabetes mellitus FATHER FH: CHF (congestive heart failure) MOTHER FH: glaucoma MOTHER FH: heart disease FH: renal failure MOTHER Heart block MOTHER Hypertension FATHER MOTHER Stroke FATHER Social History Smoking Status: Never Smoker Smokeless Tobacco Use: No Alcohol Use: none Drug Use: none Marital Status: Housing status: lives with family Occupational Status: retired Immunizations History of Influenza Vaccine: N/A History of Tetanus Vaccine?: Yes History of Pneumococcal: Yes History of Hepatitis B Vaccine: Yes Multi-Drug Resistant Organisms History of MDRO: No Allergies Coded Allergies: Methotrexate (Verified Allergy, Intermediate, RASH/PNEUMONITIS, 02/09/17) Penicillins (Verified Allergy, Intermediate, hives, 02/09/17) Ranitidine (Verified Allergy, Intermediate, rash, 02/09/17) Uncoded Allergies: Insecticides (Allergy, Unknown, DIFFICULTY BREATHING; FULL BODY SWELLING, ) Home Medications Scheduled Aspirin (Aspir-Low), 81 MG PO HS Atorvastatin (Atorvastatin Calcium), 10 MG PO DAILY Cyanocobalamin (Vitamin B12), 1,000 MCG PO QAM Docusate Sodium (Colace), 2 CAP PO HS Fluticasone Furoate-Vilanterol (Breo Ellipta), 1 PUFF PO BID Folic Acid (Folvite), 1 MG PO QPM Latanoprost (Latanoprost), 1 DROP OPB HS Lisinopril (Lisinopril), 2.5 MG PO DAILY Metformin Hcl (Glucophage), 500 MG PO BID Metoprolol Tartrate (Lopressor) (Lopressor), 25 MG PO BID Multiple Vitamins W/ Minerals (Ocuvite Lutein), 1 CAP PO HS Pantoprazole Sodium (Protonix), 40 MG PO QAM Prednisone (Prednisone), 5 MG PO QAM Thiamine Hcl (Vitamin B-1), 50 MG PO QPM Venlafaxine Hcl (Effexor), 75 MG PO AMPM Scheduled PRN Albuterol Hfa (Ventolin Hfa), 2 PUFFS INH Q4 PRN for SOB/Wheezing Levalbuterol Hcl (Levalbuterol), 1 DOSE NEB Q4 PRN for SOB/Wheezing Morphine Cont Rel (Ms Contin), 15 MG PO Q4 PRN for Pain Nitroglycerin (Nitrostat), 0.4 MG UT UD PRN for Chest Pain Polyethylene Glycol 3350 (Miralax), 17 GM PO DAILY PRN for Constipation Review of Systems Constitutional- no fever; no weight loss Eyes- no acute visual changes ENT- no sinus drainage; no pharyngitis Pulmonary- no cough, no wheezing, no shortness of breath Cardiac- no chest pain, no palpitations, no orthopnea, no dependent edema GI- no nausea, no vomiting, no diarrhea, no melena, no hematochezia - no dysuria, no hematuria Musculoskeletal- no arthralgias, no myalgias Derm- no rashes, no new skin lesions, no changing skin lesions Hematologic- no unusual bruising, no unusual bleeding Lymphatics- no adenopathy Endocrine- no polyuria or polydipsia; no heat or cold intolerance Neuro- (+) as noted above Psych- no anxiety, no depression Physical Exam Vital Signs Date Time Temp Pulse Resp B/P Pulse Ox O2 Delivery O2 Flow Rate FiO2 02/10/17 01:25 37.4 68 18 152/69 94 02/10/17 01:02 68 18 152/69 94 Nasal Cannula 3.0 02/09/17 23:00 67 18 115/68 100 Nasal Cannula 3.0 02/09/17 22:27 64 02/09/17 22:06 90 02/09/17 21:05 37.4 72 20 104/48 92 Room Air General Appearance: WD/WN, no apparent distress Head: normocephalic, atraumatic Eyes: normal inspection, PERRL, EOMI, sclerae normal ENT: normal ENT inspection, hearing grossly normal, pharynx normal Neck: supple, no adenopathy, thyroid normal, no JVD, trachea midline Respiratory/Chest: chest non-tender, lungs clear, normal breath sounds, no respiratory distress, no accessory muscle use Cardiovascular: regular rate, rhythm, no edema, no JVD, no murmur, normal peripheral pulses Abdomen/GI: normal bowel sounds, non tender, soft Back: normal inspection, no CVA tenderness Extremities/Musculoskelatal: normal inspection, no calf tenderness, normal capillary refill, no pedal edema, normal range of motion Neurologic/Psych: heater furnace II-XII nml as tested, no motor/sensory deficits, alert, normal mood/affect, oriented x 3 Skin: normal color, warm/dry, no rash Lymphatic: no adenopathy Diagnostics Laboratory Results Results Past 24 Hours Test 02/09/17 21:59 02/09/17 22:02 02/09/17 22:28 02/10/17 00:50 Range/Units Bedside Glucose 78 70-90 mg/dl White Blood Count 8.17 4.8-10.8 K/uL Red Blood Count 3.57 4.2-5.4 M/uL Hemoglobin 10.6 12.0-16.0 g/dL Hematocrit 32.5 37-47 % Mean Corpuscular Volume 91.0 80-100 fL Mean Corpuscular Hemoglobin 29.7 25-34 pg Mean Corpuscular Hemoglobin Concent 32.6 32-36 g/dl Platelet Count 217 130-400 K/uL Mean Platelet Volume 10.3 7.4-10.4 fL Neutrophils (%) (Auto) 54.1 % Lymphocytes (%) (Auto) 30.1 % Monocytes (%) (Auto) 10.3 % Eosinophils (%) (Auto) 4.9 % Basophils (%) (Auto) 0.4 % Neutrophils # (Auto) 4.42 1.4-6.5 K/uL Lymphocytes # (Auto) 2.46 1.2-3.4 K/uL Monocytes # (Auto) 0.84 0.11-0.59 K/uL Eosinophils # (Auto) 0.40 0-0.5 K/uL Basophils # (Auto) 0.03 0-0.2 K/uL RDW Standard Deviation 52.2 36.4-46.3 fL RDW Coefficient of Variation 15.5 11.5-14.5 % Immature Granulocyte % (Auto) 0.2 % Immature Granulocyte # (Auto) 0.02 0.00-0.02 K/uL Sodium Level 138 136-145 mmol/L Potassium Level 4.5 3.5-5.1 mmol/L Chloride Level 104 98-107 mmol/L Carbon Dioxide Level 25 21-32 mmol/L Anion Gap 9.0 3-11 mmol/L Blood Urea Nitrogen 29 7-18 mg/dl Creatinine 1.80 0.60-1.20 mg/dl Est Creatinine Clear Calc Drug Dose 24.3 ml/min Estimated GFR () 32.7 Estimated GFR (Non- 28.2 BUN/Creatinine Ratio 15.9 10-20 Random Glucose 77 70-99 mg/dl Calcium Level 8.6 8.5-10.1 mg/dl Magnesium Level 1.9 1.8-2.4 mg/dl Total Bilirubin 0.3 0.2-1 mg/dl Direct Bilirubin 0.1 0-0.2 mg/dl Aspartate Amino Transf (AST/SGOT) 26 15-37 U/L Alanine Aminotransferase (ALT/SGPT) 14 12-78 U/L Alkaline Phosphatase 56 45-117 U/L Total Creatine Kinase 118 26-192 U/L Creatine Kinase MB 3.8 0.5-3.6 ng/ml Creatine Kinase MB Ratio 3.2 0-3.0 Troponin I 0.112 0-0.045 ng/ml Total Protein 6.4 6.4-8.2 gm/dl Albumin 3.7 3.4-5.0 gm/dl Thyroid Stimulating Hormone (TSH) 1.350 0.300-4.500 uIu/ml Prothrombin Time 10.4 9.0-12.0 SECONDS Prothromb Time International Ratio 1.0 0.9-1.1 Activated Partial Thromboplast Time 24.5 21.0-31.0 SECONDS Partial Thromboplastin Ratio 0.9 Urine Color YELLOW Urine Appearance CLEAR CLEAR Urine pH 5.0 4.5-7.5 Urine Specific [place] 1.018 1.000-1.030 Urine Protein NEG NEG Urine Glucose (UA) NEG NEG Urine Ketones NEG NEG Urine Occult Blood NEG NEG Urine Nitrite NEG NEG Urine Bilirubin NEG NEG Urine Urobilinogen NEG NEG Urine Leukocyte Esterase MODERATE NEG Urine WBC (Auto) 10-30 0-5 /hpf Urine RBC (Auto) 0-4 0-4 /hpf Urine Hyaline Casts (Auto) 5-10 0-5 /lpf Urine Epithelial Cells (Auto) >30 0-5 /lpf Urine Bacteria (Auto) NEG NEG Microbiology Results 02/10/17 Urine Culture, Received Pending Diagnostic Radiology ] CT OF THE HEAD WITHOUT CONTRAST CLINICAL HISTORY: Stroke. Lethargic. COMPARISON STUDY: Head CT August 06, 2013. CT DOSE: 537.48 mGy.cm TECHNIQUE: Helical axial images of the head were obtained without IV contrast. Automated exposure control was utilized for the study. FINDINGS: No acute intracranial hemorrhage, midline shift or mass effect is present. Ventricular system is stable. Basilar cisterns are patent. There are no extra-axial collections. White matter hypodensities suggest small vessel disease. There are no findings to suggest acute dural sinus thrombosis or acute territorial infarct. Visualized portions of the sinuses and mastoid air cells are clear. There are no calvarial abnormalities. IMPRESSION: No acute intracranial findings. EKG HR 68. sinus rhythm, non specific t wave inversion inferior leads Impression Assessment and Plan 74 year old female with history of CAD, DM, HTN, CKD 3, Rheumatoid Arthritis, presenting with altered mental status x 2 days. ALTERED MENTAL STATUS - presents with 2 day history of slow to answer questions,mild confusion and gait imbalance - likely from Acute Renal Failure on CKD 3, Intake of Morphine management noted below - r/o CVA CT head negative ff up MRI Brain Neurochecks check orthostatic vital signs ACUTE RENAL FAILURE ON CKD 3 - possible pre renal etiology - hold Metformin, Lisinopril decrease dose of Morphine and Effexor - IV NSS monitor crea MILD CARDIAC MARKER ELEVATION HISTORY OF CAD - no cardiac symptoms non specific t wave inversion in inferior leads - serial cardiac markers echo repeat EKG in AM - may just be from acute renal failure - already on Aspirin , Statin DM 2 hold Metformin ISS HYPERTENSION hold Lisinopril continue Metoprolol B12 AND THIAMINE DEFICIENCY on supplements check levels RHEUMATOID ARTHRITIS on Plaquenil as per patient, 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 Lucas in 08/2016, no note of discontinuing Prednisone needs to be confirmed with Dr. Lucas DVT PROPHYLAXIS SCDs Full code per patient Disposition pending lives with PT/OT eval VTE Prophylaxis VTE Risk Assessment Done? Y/N: Yes Risk Level: Moderate <Electronically signed by Deven Johnson MD> Signed: 02/10/17 0145 Signed: The status of this report is Signed Physical Exam (per Admitting): General Appearance: WD/WN, no apparent distress Head: normocephalic, atraumatic Eyes: normal inspection, PERRL, EOMI, sclerae normal ENT: normal ENT inspection, hearing grossly normal, pharynx normal Neck: supple, no adenopathy, thyroid normal, no JVD, trachea midline Respiratory/Chest: chest non-tender, lungs clear, normal breath sounds, no respiratory distress, no accessory muscle use Cardiovascular: regular rate, rhythm, no edema, no JVD, no murmur, normal peripheral pulses Abdomen/GI: normal bowel sounds, non tender, soft Back: normal inspection, no CVA tenderness Extremities/Musculoskelatal: normal inspection, no calf tenderness, normal capillary refill, no pedal edema, normal range of motion Neurologic/Psych: heater furnace II-XII nml as tested, no motor/sensory deficits, alert , normal mood/affect, oriented x 3 Skin: normal color, warm/dry, no rash Lymphatic: no adenopathy Hospital Course ALTERED MENTAL STATUS-resolved Presents with 2 day history of slow to answer questions,mild confusion and gait imbalance Likely due to Use of Narcotic,Dehydration with Acute Renal Failure on CKD 3, Hypoglycemia and or infection CT head negative,ff up MRI Brain Check Orthostasis Decrease dose of Morphine and Effexor Clinically better this AM No more confusion Increase ambulation Does not want to go to Rehab Discharge home today following bowel movement HYPERTENSION-uncontrolled hold Lisinopril continue Metoprolol Noted to be high with acute confusion Lisinopril restarted and received one dose of Clonidine BP is well controlled ACUTE RENAL FAILURE ON CKD 3 - possible pre renal etiology - hold Metformin, Lisinopril - IV NSS -Monitor Creatinine-improved MILD CARDIAC MARKER ELEVATION HISTORY OF CAD - no cardiac symptoms -non specific t wave inversion in inferior leads - serial cardiac markers,doubt any ACS -ECHO:: * No regional wall motion abnormalities noted. * There is normal left ventricular wall thickness. * Ejection Fraction = >70 %. * The right ventricle is normal in size and function. * There is mild mitral annular calcification. * Grade I diastolic dysfunction, (abnormal relaxation pattern). 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 Lucas in 08/2016, no note of discontinuing Prednisone OP appointment with Dr Lucas DVT PROPHYLAXIS SCDs CODE status-Full PT/OT evaluation Likely discharge today Discussed with the -likely discharge tomorrow Total time spent on discharge = 35 minutes This includes examination of the patient, discharge planning, medication reconciliation, and communication with other providers. Discharge Instructions Date of Service Feb 13, 2017. Admission Reason for Admission: Altered Mental Status Discharge Discharge Diagnosis / Problem: Change in mental Status-resolved Discharge Goals Goal(s): Prevent Disease Progression Activity Recommendations Activity Limitations: resume your previous activity . Instructions / Follow-Up Instructions / Follow-Up Dr Garcia on 02/19/17 at 9:30PM Current Hospital Diet Patient's current hospital diet: Diabetes Type 2 Diet, AHA Diet (Heart Healthy) Discharge Diet Recommended Diet: Diabetes Type 2 Diet Pending Studies Studies pending at discharge: no Laboratory Results Hemoglobin A1c Test 02/10/17 05:35 Range/Units Estimated Average Glucose 131 mg/dl Hemoglobin A1c 6.2 H 4.5-5.6 % Medical Emergencies . Who to Call and When: Medical Emergencies: If at any time you feel your situation is an emergency, please call 911 immediately. . Non-Emergent Contact Non-Emergency issues call your: Primary Care Provider . Past History Medical & Surgical History: (1) Altered mental status (2) HTN (hypertension) (3) Asthma (4) DM type 2 (diabetes mellitus, type 2) (5) GERD (gastroesophageal reflux disease) (6) Depression (7) Rheumatoid arthritis (8) Dyslipidemia (9) S/P removal of ovarian cyst (10) S/P rotator cuff repair (11) S/p EGD (12) H/O colonoscopy (13) History of hysterectomy (14) S/P total knee arthroplasty (15) H/O cardiac catheterization . "Provider Documentation" section prepared by Kevin Rodriguez. . VTE Core Measure Inpt VTE Proph given/why not?: SCD's <Electronically signed by Kevin Rodriguez M.D.> Signed: 02/13/17 0943 Additional Copies To Abigail Garcia M.D.
== END 2017-02-13 17:45 | disposition home health service (06) | DRG 683 ==
LOC: ENRESERVTM → ENRESERVDT → C.EDB 21:03 → C.2T 02-10 01:12 → C.MS4W 02-11 17:38
PROVIDERS: ADMIT Internal Medicine; ATTEND Internal Medicine
DX: N17.9 Acute kidney failure, unspecified (principal); E51.9 Thiamine deficiency, unspecified; R41.82 Altered mental status, unspecified; E86.0 Dehydration; E11.22 Type 2 diabetes mellitus with diabetic chronic kidney disease; N18.3 Chronic kidney disease, stage 3 (moderate); K21.9 Gastro-esophageal reflux disease without esophagitis; M06.9 Rheumatoid arthritis, unspecified; I25.10 Atherosclerotic heart disease of native coronary artery without angina pectoris; E53.8 Deficiency of other specified B group vitamins; Z79.52 Long term (current) use of systemic steroids; Z79.82 Long term (current) use of aspirin; Z79.84 Long term (current) use of oral hypoglycemic drugs; Z79.899 Other long term (current) drug therapy

== ENCOUNTER 2019-11-11 18:11 | Inpatient (IN) ==
[2019-11-11] MEDS: SODIUM CHLORIDE 0.9% 1000ML 1,000 ML IV SCH (18:52)
[2019-11-11 19:03] LABS: Basophils # (auto) 0.02 K/uL (0-0.2); Basophils % (auto) 0.2 %; Eosinophils # (auto) 0.04 K/uL (0-0.5); Eosinophils % (auto) 0.4 %; Hematocrit (blood only) 47.3 % (37-47); Hemoglobin 16.7 g/dL (12.0-16.0); Immature Granulocytes # (auto) 0.02 K/uL (0.00-0.02); Immature Granulocytes % (auto) 0.2 %; Lymphocytes # (auto) 2.05 K/uL (1.2-3.4); Lymphocytes % (auto) 20.4 %; Mean Corpuscular Hemoglobin 31.2 pg (25-34); Mean Corpuscular Hgb Conc 35.3 g/dL (32-36); Mean Corpuscular Volume 88.2 fL (80-100); Mean Platelet Volume 11.3 fL (7.4-10.4); Monocytes # (auto) 1.15 K/uL (0.11-0.59); Monocytes % (auto) 11.4 %; Neutrophils # (auto) 6.77 K/uL (1.4-6.5); Neutrophils % (auto) 67.4 %; Platelet Count 187 K/uL (130-400); RDW Coefficient of Variation 14.7 % (11.5-14.5); RDW Standard Deviation 47.3 fL (36.4-46.3); Red Blood Count 5.36 M/uL (4.2-5.4); White Blood Count 10.05 K/uL (4.8-10.8)
[2019-11-11 19:10] LABS: Albumin Level 3.8 gm/dl (3.4-5.0); BUN Creatinine Ratio 15.6 (10-20); Calcium 10.3 mg/dl (8.5-10.1); Creatinine Clr Calc Pharmacy 23.3 ml/min; Est GFR (African American) 34.1; Est GFR (Non-African American) 29.4; Magnesium 1.9 mg/dl (1.8-2.4); Potassium 3.7 mmol/L (3.5-5.1)
[2019-11-11 19:21] LABS: Bilirubin,Total 1.3 mg/dl (0.2-1); Globulin 3.9 gm/dl (2.5-4.0); Phosphorus 4.5 mg/dl (2.5-4.9); Thyroid Stimulating Hormone 2.04 uIu/ml (0.300-4.500); Total Protein 7.7 gm/dl (6.4-8.2)
--- NOTE | 2019-11-11 19:37 | XRay Report ---
CHEST AND ABDOMEN 2 VIEWS HISTORY: Generalized abdominal pain. Seizure. COMPARISON: Chest 07/24/2018. FINDINGS: The lungs are clear. The cardiomediastinal silhouette is within normal limits. There is no pneumoperitoneum or pneumatosis. The bowel gas pattern is unremarkable. No evidence for b owel obstruction. No renal or ureteral calculi. 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 Calcifications in the deep pelvis likely represent phleboliths.. IMPRESSION: No acute cardiopulmonary process. No evidence for bowel obstruction. ACT 112: Negative or not required by law. Electronically signed by: Peter Olivarez M.D. 11/11/2019 7:36 PM
--- NOTE | 2019-11-11 19:56 | CT Scan Report ---
HEAD CT NONCONTRAST CT DOSE: 614.27 mGy.cm HISTORY: new seizure TECHNIQUE: Multiaxial CT images of the head were performed without the use of intravenous contrast. A utomated exposure control was utilized for this study. A dose lowering technique was utilized adheri ng to the principles of ALARA. Comparison: Head CT 07/22/2018. Findings: Trace fluid level within the left maxillary sinus. The mastoid air cells are clear. The vane varium and skull base are intact. There is no mass, hematoma, midline shift, acute infarct. White mat ter hypodensity is nonspecific but suggestive of microvascular ischemic change. The ventricles and mike lci demonstrate mild age-related involutional changes. Impression: No acute intracranial abnormality. Atrophy and microvascular ischemic changes. Trace fluid level with in the left maxillary sinus. ACT 112: Negative or not required by law. Electronically signed by: Peter Olivarez M.D. 11/11/2019 7:54 PM
--- NOTE | 2019-11-11 21:32 | CT Scan Report ---
ABDOMEN AND PELVIS CT WITHOUT CONTRAST CT DOSE: 360.07 mGy.cm HISTORY: abn lft's, recent c.diff, generalized abdominal pain TECHNIQUE: Multiaxial CT images of the abdomen and pelvis were performed without contrast. A dose lo wering technique was utilized adhering to the principles of ALARA. COMPARISON STUDY: Abdomen and pelvis CT 07/20/2018. FINDINGS: Punctate calcified granuloma within the right lower lobe posteriorly. The left lung base is clear. No pneumoperitoneum. No pneumatosis. No suspicious lytic or blastic osseous lesions. Advanced degenerative disc disease within the lower lumbar spine is again noted. Small hiatus hernia. The une nhanced liver, spleen, adrenal glands, pancreas, and right kidney are unremarkable. There is a puncta te stone within the left kidney. No ureteral stones. No hydronephrosis. No retroperitoneal lymphadeno johnson. Multiple small gallstones are identified. Questionable minimal inflammatory change adjacent to the gallbladder. There are 2 stable hypodense lesions within the left kidney with the largest in the lower pole measuring 4.6 cm. These are incompletely characterized on this noncontrast study but stat istically represent cysts. The bladder is decompressed but appears unremarkable. The uterus is surgic ally absent. Bilateral adnexa are within normal limits. No pelvic free fluid. Suboptimal evaluation f or bowel pathology due to the lack of intravenous and oral contrast. However, there is no definite froilan wel wall thickening or obstruction. Colonic diverticulosis. No CT evidence for diverticulitis. Normal appendix. IMPRESSION: 1. Questionable minimal inflammatory change adjacent to the gallbladder. Consider follow-up ultrasoun d the patient is complaining of right upper quadrant pain and to exclude the possibility of acute cho lecystitis. 2. Colonic diverticulosis. No evidence for diverticulitis. 3. Normal appendix. 4. Left-sided nephrolithiasis. No ureteral stones. No hydronephrosis. 5. No definite bowel wall thickening or obstruction. ACT 112: Negative or not required by law. Electronically signed by: Peter Olivarez M.D. 11/11/2019 9:31 PM
[2019-11-11] MEDS ORDERED: SODIUM CHLORIDE 0.9% 1000ML 1,000 ML IV SCH (22:30)
--- NOTE | 2019-11-11 22:50 | Ultrasound Report ---
ABDOMINAL ULTRASOUND, RIGHT UPPER QUADRANT HISTORY: Generalized abdominal pain. Abnormal ct, abn lft's. COMPARISON: Abdomen and pelvis CT 11/11/2019. FINDINGS: Pancreas: Obscured by overlying bowel gas. Liver: Unremarkable. Gallbladder: A few small gallstones. No gallbladder wall thickening. Negative sonographic Baker sign . CBD: 4 mm. Right kidney: No hydronephrosis. IMPRESSION: Cholelithiasis. No gallbladder wall thickening. ACT 112: Negative or not required by law. Electronically signed by: Peter Olivarez M.D. 11/11/2019 10:48 PM
--- NOTE | 2019-11-11 23:02 | Emergency Department Note ---
Entered by Alyssia Michelle acting as a scribe for History of Present Illness General Chief complaint: Seizure Stated complaint: WEAKNESS, SEIZURE, HIGH BP Time Seen by Provider: 11/11/19 18:23 Source: patient and family Mode of arrival: ambulatory Limitations: no limitations History of Present Illness Provider complaint: Seizure Onset (ago): hour(s) (today) Location: head Radiation: non-radiation Pain Consistency: + other (episode) Quality: + other (seizure) Associated symptoms: + confusion, + headaches, + weakness and + other (Additional symptoms: hypertension, pallor, right eye blurriness, central abdominal pain, diarrhea. Denies: facial droop); no fever/chills, no nause a/vomiting and no syncope Treatments prior to arrival: none The patient is a 74 year old female with a history of COPD, stage III CKD, type 2 diabetes, dyslipidemia, GERD, interstitial lung disease, gastroparesis, hypertension, NSTEMI, and cardiac catheterization who presents to the Emergency Room with complaints of an episode of a seizure occurring today. Per , the patient was hypertensive with a blood pressure of 180/120 this morning. He reports that the patient had a seizure on her way to the bathroom after her blood pressure was taken. At this time, he explains that the patient turned pale and looked unwell. He indicates that he lower her to the ground before she started having slight shakes mostly in her arms and shoulders and her eyes rolled back. He states that this seizure episode lasted for a few minutes and that he was able to help the patient get back up to her bed afterward. When more members of the patient's family arrived, they noted that the patient was talking cohesively but repeating the same phrase. They indicate that the patient is normally not confused at baseline. They add that the patient complained of blurriness in her right eye and general weakness. They deny any vomiting, facial drooping, and fevers. Per family, the patient has now mostly returned to her normal self. They state that they do not believe that the patient has a history of seizures. The patient now notes that she has been having headaches but has not passed out. She reports that she has also not been eating much over the past 2 days. She states that she has intermittent pain across her central abdomen. Per , the patient has had diarrhea secondary to C diff for the past 2 months and is currently on an antibiotic. He adds that the patient fell while chasing her cat a few days ago and bruised her right knee but did not hit her head. He mentions that the patient was in the [facility] ICU for 6 weeks for a lung infection 2 months ago. Home Medications Home Medications Medication Instructions Recorded Confirmed Type aspirin [Aspir-81] 81 mg PO HS 07/20/18 11/12/19 History duloxetine 60 mg PO DAILY 07/20/18 11/12/19 History folic acid 1 mg PO QAM 07/20/18 11/12/19 History hydroxychloroquine 200 mg PO HS 07/20/18 11/12/19 History lisinopril 2.5 mg PO QAM 07/20/18 11/12/19 History metoprolol tartrate 25 mg PO BID 07/20/18 11/12/19 History montelukast 10 mg PO HS 07/20/18 11/12/19 History pantoprazole 40 mg PO QAM 07/20/18 11/12/19 History prednisone 5 - 10 mg PO QAM 07/20/18 11/12/19 History thiamine mononitrate (vit B1) 50 mg PO QAM 07/20/18 11/12/19 History Ocuvite with Lutein 1 tab PO QAM 03/07/19 11/12/19 History albuterol sulfate [ProAir HFA] 2 puff INHALATION Q4 PRN 03/07/19 11/12/19 Histo ry betamethasone dipropionate 1 applic TOPICAL DAILY PRN 03/07/19 11/12/19 History cholecalciferol (vitamin D3) 2,000 unit PO QAM 03/07/19 11/12/19 History [Vitamin D3] clindamycin HCl 600 mg PO UD PRN 03/07/19 11/12/19 History cyanocobalamin (vitamin B-12) 2,000 mcg PO 3XWK 03/07/19 11/12/19 History [Vitamin B-12] fluticasone propionate [Flonase 2 spray INTRANASAL DAILY PRN 03/07/19 11/12/19 History Allergy Relief] latanoprost [Xalatan] 1 drp OPHTHALMIC (EYE) HS 03/07/19 11/12/19 History leflunomide [Arava] 10 mg PO QAM 03/07/19 11/12/19 History levalbuterol HCl [Xopenex] 1.25 mg INHALATION Q4 PRN 03/07/19 11/12/19 History nitroglycerin 0.4 mg SUBLINGUAL UD 03/07/19 11/12/19 History nystatin 1 applic TOPICAL TID PRN 03/07/19 11/12/19 History tramadol 50 mg PO BID PRN 03/07/19 11/12/19 History triamcinolone acetonide 1 applic TOPICAL BID PRN 03/07/19 11/12/19 History doxylamine-dextromethorphan [Vicks 30 ml PO Q6H PRN 11/12/19 11/12/19 History NyQuil Cough] fluticasone furoate-vilanterol 1 inh INHALATION DAILY 11/12/19 11/12/19 History rajcwsaq-lsa-tiva-FA-lutein 1 tab PO DAILY 11/12/19 11/12/19 History [Centrum Silver Women] rosuvastatin 10 mg PO DAILY 11/12/19 11/12/19 History vancomycin 125 mg PO DIRECTED 11/12/19 11/12/19 History Allergies Allergy/AdvReac Type Severity Reaction Status Date / Time methotrexate Allergy Intermediate RASH/PNEUMO Verified 11/11/19 23:47 NITIS Penicillins Allergy Intermediate hives Verified 11/11/19 23:47 ranitidine Allergy Intermediate rash Verified 11/11/19 23:47 Insecticides Allergy Severe DIFFICULTY Uncoded 11/11/19 23:47 BREATHING; FULL BODY SWELLING Past Med/Surg History Medical History Asthma (Chronic) inhalers prn Chronic steroid use prednisone daily CKD (chronic kidney disease), stage III (Chronic) COPD (chronic obstructive pulmonary disease) (Chronic) inhalers prn Depression (Chronic) DJD of right shoulder DM type 2 (diabetes mellitus, type 2) (Chronic) Dyslipidemia (Chronic) Gastroparesis (Chronic) GERD (gastroesophageal reflux disease) (Chronic) Glaucoma (Chronic) Gout H/O interstitial lung disease (Chronic) "drug induced- methotrexate " Heart disease (Chronic) HTN (hypertension) (Chronic) Migraines (Chronic) NSTEMI (non-ST elevated myocardial infarction) (Acute 08/06/13) Osteoarthritis (Chronic) Peripheral neuropathy (Chronic) Rheumatoid arthritis (Chronic) "on chronic steroids" Surgical History H/O cardiac catheterization (Chronic) "cath 07/2013- single vessel CAD involving apical segment LAD, medical management indicated" H/O colonoscopy (Chronic) History of esophagogastroduodenoscopy (EGD) History of hysterectomy (Chronic) History of tooth extraction all top teeth S/P removal of ovarian cyst (Chronic) S/P rotator cuff repair (Chronic) "right shoulder" S/P total knee arthroplasty (Chronic) "left knee" Family History Father Family history of diabetes mellitus Other No family history of adverse response to anesthesia Social History Preferred Language: Croatian Communication Ability: Effective Minute Clerk Required: No Beliefs That Will Affect Care: None marital status: Current Living Situation: Spouse Feels Safe at Home: Yes Safety Concerns: Feels Safe At This Time Smoking Status: Never smoker Do You Dip or Chew Tobacco: No ; Second Hand Exposure: No ; Hx Alcohol Use: No Hx Substance Use: No Review of Systems See HPI for pertinent positives & negatives. and A total of 10 systems reviewed and were otherwise negative Physical Exam Vital Signs Vital Signs - 24 hr 11/11/19 18:13 11/11/19 18:30 11/11/19 18:32 Temperature 36.6 C Temperature Source Oral Pulse Rate 127 H 114 H Pulse Rate [Left] 116 H Pulse Rhythm Regular Pulse Strength Normal Respiratory Rate 20 20 Respiratory Effort / Characteristics Non-Labored Spontaneous Spontaneous Respiratory Depth Normal Respiratory Pattern Regular Blood Pressure 89/68 L Blood Pressure [Left Arm] 146/91 H Blood Pressure Mean 75 Blood Pressure Mean [Left Arm] 109 Blood Pressure Position Sitting Blood Pressure Position [Left Arm] Lying Pulse Oximetry 97 97 99 Oxygen Delivery Method Room Air Room Air Room Air Sepsis Recent Fever Within 48 Hours No Sepsis New/Unexplained Change in Mental Status No Sepsis Action Taken by Nursing No Action Required 11/11/19 19:43 11/11/19 21:34 11/11/19 22:22 Temperature Temperature Source Pulse Rate Pulse Rate [Left] 105 H 102 H 103 H Pulse Rhythm Pulse Strength Respiratory Rate 20 20 18 Respiratory Effort / Characteristics Respiratory Depth Respiratory Pattern Blood Pressure Blood Pressure [Left Arm] 114/80 114/80 114/80 Blood Pressure Mean Blood Pressure Mean [Left Arm] 91 91 91 Blood Pressure Position Blood Pressure Position [Left Arm] Pulse Oximetry 95 98 95 Oxygen Delivery Method Room Air Room Air Room Air Sepsis Recent Fever Within 48 Hours Sepsis New/Unexplained Change in Mental Status Sepsis Action Taken by Nursing GENERAL: alert, ill appearing, well nourished, no distress, non-toxic EYE EXAM: normal conjunctiva, PERRL and EOM's grossly intact OROPHARYNX: no exudate, no erythema, lips, buccal mucosa, and tongue normal and mucous membranes are moist NECK: supple, no nuchal rigidity, no adenopathy, non-tender LUNGS: Clear to auscultation. Normal chest wall mechanics HEART: no murmurs, S1 normal and S2 normal ABDOMEN: abdomen soft, normo-active bowel sounds, no masses, no rebound or guarding. Mild central abdominal tenderness to palpation. BACK: Back is symmetrical on inspection and there is no deformity, no midline tenderness, no CVA tenderness. SKIN: no rashes and no bruising UPPER EXTREMITIES: upper extremities are grossly normal. FROM, nml pulses b/l. LOWER EXTREMITIES: No pitting edema. Right knee with large area of resolving ecchymosis. No acute joint diffusion. Healing superficial abrasion. Normal distal pulses bilaterally. NEURO EXAM: Normal sensorium, cranial nerves II-XII grossly intact, normal speech, no gross weakness of arms, no gross weakness of legs. Gross sensation intact. Brief episode of increased confusion. Course Course 182: The patient was evaluated in room C8, and a complete history and physical examination were performed. 0: Orders were placed. The patient was started on a quality assurance monitor chassis at this time. 2300: Patient updated on all results. Vital signs stable. Patient states she is feeling mildly improved but still has some lightheadedness. Patient in agreement with the plan. 2300: I discussed the patient's case with Dr. Plascencia- Chelita. Dr. Plascencia will evaluate the patient for further management. 2310: Case discussed with Dr. Johnson, on-call gastroenterology. They can see the patient in consult. Consultations Consultation #1: I discussed the patient's case with Dr. Duarte - Chelita. Dr. Duarte will evaluate the patient for further management. Administered Medications Aspirin (Ecotrin Ectab) 81 mg PO HS [facility] Stop: 12/12/19 20:59 Last Admin: 11/13/19 22:17 Dose: Not Given Documented by: [id number] Admin: 11/12/19 20:00 Dose: 81 mg Documented by: [id number] Dextrose (Dextrose 50%) 25 - 50 ml IV UD PRN; Protocol PRN Reason: Hypoglycemia Protocol Stop: 12/12/19 04:22 Last Admin: 11/13/19 06:07 Dose: 25 ml Documented by: [id number] Duloxetine HCl (Cymbalta) 60 mg PO DAILY [facility] Stop: 12/12/19 08:59 Last Admin: 11/13/19 12:27 Dose: 60 mg Documented by: [id number] Admin: 11/12/19 08:25 Dose: 60 mg Documented by: [id number] Folic Acid (Folvite) 1 mg PO QAM [facility] Stop: 12/12/19 08:59 Last Admin: 11/13/19 12:27 Dose: 1 mg Documented by: [id number] Admin: 11/12/19 08:25 Dose: 1 mg Documented by: [id number] Gadobutrol (Gadavist 65ml) 5.5 ml IV ONCE PRN PRN Reason: Interaction Checking Stop: 11/16/19 15:50 Last Admin: 11/12/19 15:52 Dose: 5.5 ml Documented by: [id number] Hydroxychloroquine Sulfate (Plaquenil) 200 mg PO HS [facility] Stop: 12/12/19 20:59 Last Admin: 11/13/19 21:07 Dose: 200 mg Documented by: [id number] Admin: 11/12/19 20:00 Dose: 200 mg Documented by: [id number] Ertapenem 1,000 mg/ Sodium (Chloride) 60 mls @ 100 mls/hr IV Q24H K[facility]LA; Protocol Stop: 11/21/19 21:59 Last Infusion: 11/13/19 23:02 Dose: 0 mls/hr Documented by: [id number] Admin: 11/13/19 22:25 Dose: 100 mls/hr Documented by: [id number] Infusion: 11/12/19 23:05 Dose: 0 mls/hr Documented by: [id number] Admin: 11/12/19 22:27 Dose: 100 mls/hr Documented by: [id number] Sodium Chloride (Nss 1000ml) 1,000 mls @ 100 mls/hr IV .Q10H [facility] Stop: 12/14/19 00:00 Last Admin: 11/13/19 23:50 Dose: 100 mls/hr Documented by: [id number] Insulin Aspart (Novolog Flexpen) 0 units SC ACHS [facility] Stop: 12/13/19 12:29 Last Admin: 11/13/19 21:08 Dose: 2 units Documented by: [id number] Cosigned by: [id number] Admin: 11/13/19 17:13 Dose: 1 units Documented by: [id number] Cosigned by: [id number] Admin: 11/13/19 12:35 Dose: Not Given Documented by: [id number] Cosigned by: [id number] Insulin Glargine (Lantus Solostar Pen) 5 units SC DAILY [facility] Stop: 12/13/19 08:59 Last Admin: 11/13/19 12:29 Dose: 5 units Documented by: [id number] Cosigned by: [id number] Latanoprost (Xalatan Oph) 1 drops OP [facility] Stop: 12/12/19 20:59 Last Admin: 11/13/19 21:07 Dose: 1 drops Documented by: [id number] Admin: 11/12/19 20:09 Dose: 1 drops Documented by: [id number] Lisinopril (Zestril) 2.5 mg PO QAM [facility] Stop: 12/13/19 08:59 Last Admin: 11/13/19 12:26 Dose: 2.5 mg Documented by: [id number] Metoprolol Tartrate (Lopressor) 25 mg PO BID [facility] Stop: 12/12/19 08:59 Last Admin: 11/13/19 22:17 Dose: Not Given Documented by: [id number] Admin: 11/13/19 12:27 Dose: Not Given Documented by: [id number] Admin: 11/12/19 20:00 Dose: 25 mg Documented by: [id number] Admin: 11/12/19 08:25 Dose: 25 mg Documented by: [id number] Montelukast Sodium (Singulair) 10 mg PO [facility] Stop: 12/12/19 20:59 Last Admin: 11/13/19 21:07 Dose: 10 mg Documented by: [id number] Admin: 11/12/19 20:01 Dose: 10 mg Documented by: [id number] Multivitamins/Minerals (Multivitamin W/ Minerals Tab) [facility]: 12/12/19 08:59 Last Admin: 11/13/19 12:26 Dose: 1 tab Documented by: [id number] Admin: 11/12/19 08:25 Dose: 1 tab Documented by: [id number] Pantoprazole Sodium (Protonix) [facility] Stop: 12/12/19 08:59 Last Admin: 11/13/19 12:26 Dose: 40 mg Documented by: [id number] Admin: 11/12/19 08:25 Dose: 40 mg Documented by: [id number] Prednisone (Prednisone) 5 mg PO DAILY [facility] Stop: 12/12/19 08:59 Last Admin: 11/13/19 12:26 Dose: 5 mg Documented by: [id number] Admin: 11/12/19 08:25 Dose: 5 mg Documented by: [id number] Raspberry (Raspberry) 5 ml PO DAILY [facility] Stop: 11/26/19 08:59 Last Admin: 11/13/19 12:27 Dose: 5 ml Documented by: [id number] Admin: 11/12/19 08:25 Dose: 5 ml Documented by: [id number] Thiamine HCl (Vitamin B-1) 50 mg PO [facility] Stop: 12/12/19 08:59 Last Admin: 11/13/19 12:26 Dose: 50 mg Documented by: [id number] Admin: 11/12/19 08:25 Dose: 50 mg Documented by: [id number] Vancomycin HCl (Vancomycin Hcl) 125 mg PO DAILY [facility] Stop: 11/26/19 08:59 Last Admin: 11/13/19 12:27 Dose: 125 mg Documented by: [id number] Admin: 11/12/19 08:25 Dose: 125 mg Documented by: [id number] Discontinued Medications Bupivacaine HCl/Epinephrine Bitart (Sensorcaine/Epinephrine 0.5% Mpf 1:200,000) Confirm Administered Dose 30 ml .ROUTE .STK-MED ONE Stop: 11/13/19 06:57 Last Admin: 11/13/19 09:53 Dose: Not Given Documented by: [id number] Sodium Chloride (Nss 1000ml) 1,000 mls @ 250 mls/hr IV .Q4H [facility] Stop: 12/11/19 18:44 Last Admin: 11/12/19 02:12 Dose: Not Given Documented by: [id number] Infusion: 11/11/19 23:21 Dose: 0 mls/hr Documented by: [id number] Admin: 11/11/19 18:52 Dose: 250 mls/hr Documented by: [id number] Sodium Chloride (Nss 1000ml) 1,000 mls @ 250 mls/hr IV .Q4H [facility] Stop: 12/11/19 22:29 Last Infusion: 11/12/19 02:10 Dose: 0 mls/hr Documented by: [id number] Admin: 11/11/19 23:22 Dose: 250 mls/hr Documented by: [id number] Ertapenem (Invanz) 10 mls @ 2 mls/min IV NOW STA Stop: 11/12/19 00:00 Last Admin: 11/12/19 00:25 Dose: 2 mls/min Documented by: [id number] Potassium Chloride/Sodium Chloride (Normal Saline W/20 Meq Kcl) 20 meq in 1,000 mls @ 75 mls/hr IV .[id number] [facility] Stop: 12/12/19 01:17 Last Admin: 11/13/19 22:40 Dose: Not Given Documented by: [id number] Infusion: 11/13/19 22:40 Dose: 0 mls/hr Documented by: [id number] Infusion: 11/13/19 11:11 Dose: 75 mls/hr Documented by: [id number] Infusion: 11/13/19 07:02 Dose: 0 mls/hr Documented by: [id number] Admin: 11/13/19 05:37 Dose: 75 mls/hr Documented by: [id number] Infusion: 11/13/19 05:37 Dose: 75 mls/hr Documented by: [id number] Admin: 11/12/19 16:20 Dose: 75 mls/hr Documented by: [id number] Infusion: 11/12/19 16:20 Dose: 75 mls/hr Documented by: [id number] Infusion: 11/12/19 16:18 Dose: 75 mls/hr Documented by: [id number] Infusion: 11/12/19 14:43 Dose: 0 mls/hr Documented by: [id number] Admin: 11/12/19 02:09 Dose: 75 mls/hr Documented by: [id number] Magnesium Sulfate/Dextrose (Magnesium Sulfate / D5w) 1 gm in 100 mls @ 100 mls/hr IV ONE ONE Stop: 11/13/19 09:48 Last Infusion: 11/13/19 12:22 Dose: 0 mls/hr Documented by: [id number] Admin: 11/13/19 11:10 Dose: 100 mls/hr Documented by: [id number] Cefazolin Sodium (Ancef 1000mg) 1,000 mg in 7.5 mls @ 2.5 mls/min IV ONCE ONE Stop: 11/13/19 09:03 Last Admin: 11/13/19 07:55 Dose: 2.5 mls/min Documented by: [id number] Lactated Ringer's (Lr) 1,000 mls @ 50 mls/hr IV .Q20H [facility] Stop: 12/13/19 11:13 Last Admin: 11/13/19 12:25 Dose: Not Given Documented by: [id number] Sodium Chloride (Nss) 500 mls @ 500 mls/hr IV .Q1H ONE Stop: 11/13/19 23:11 Last Infusion: 11/13/19 23:51 Dose: 0 mls/hr Documented by: [id number] Admin: 11/13/19 22:41 Dose: 500 mls/hr Documented by: [id number] Insulin Aspart (Novolog Flexpen) 0 units SC Q6 [facility] Stop: 12/12/19 04:24 Last Admin: 11/13/19 06:14 Dose: Not Given Documented by: [id number] Cosigned by: [id number] Admin: 11/13/19 00:34 Dose: Not Given Documented by: [id number] Cosigned by: [id number] Admin: 11/12/19 18:39 Dose: Not Given Documented by: [id number] Cosigned by: [id number] Admin: 11/12/19 12:02 Dose: Not Given Documented by: [id number] Cosigned by: [id number] Admin: 11/12/19 08:18 Dose: Not Given Documented by: [id number] Cosigned by: [id number] Admin: 11/12/19 05:17 Dose: Not Given Documented by: [id number] Cosigned by: [id number] Insulin Glargine (Lantus Solostar Pen) 5 units SC NOW STA Stop: 11/12/19 04:24 Last Admin: 02/29/20 05:18 Dose: 5 units Documented by: [id number] Cosigned by: [id number] Iothalamate Meglumine (Conray 60%) Confirm Administered Dose 50 ml .ROUTE .STK- MED ONE Stop: 11/13/19 07:16 Last Admin: 11/13/19 09:00 Dose: 10 ml Documented by: [id number] Metoprolol Tartrate (Lopressor) 2.5 mg IV NOW STA Stop: 11/12/19 02:35 Last Admin: 11/12/19 03:36 Dose: 2.5 mg Documented by: [id number] Miscellaneous (Surgicel Absorb Hemostat 2in X 14in) 1 ea TOP ONCE ONE Stop: 11/13/19 09:14 Last Admin: 11/13/19 09:14 Dose: 1 ea Documented by: [id number] Medical Decision Making Differential Diagnosis Differential diagnosis includes etiologies such as infection, hypoglycemia, electrolyte abnormalities, cardiac sources, intracerebral event, trauma, to xicologic, neurologic, as well as others were entertained. Medical Records Attestation: I reviewed the patient's medical records. Home Medications Current Medication List: was personally reviewed by me Laboratory Data Attestation: I reviewed the patient's lab results. Result diagrams: 11/13/19 20:32 11/13/19 20:32 Lab Results 11/11/19 11/11/19 11/11/19 Range/Units 18:30 18:30 23:24 WBC 10.05 (4.8-10.8) K/uL RBC 5.36 (4.2-5.4) M/uL Hgb 16.7 H (12.0-16.0) g/dL Hct 47.3 H (37-47) % MCV 88.2 (80-100) fL MCH 31.2 (25-34) pg MCHC 35.3 (32-36) g/dL RDW Std Deviation 47.3 H (36.4-46.3) fL RDW Coeff of Xochitl 14.7 H (11.5-14.5) % Plt Count 187 (130-400) K/uL MPV 11.3 H (7.4-10.4) fL Immature Gran % (Auto) 0.2 % Neut % (Auto) 67.4 % Lymph % (Auto) 20.4 % Traverse % (Auto) 11.4 % Eos % (Auto) 0.4 % Baso % (Auto) 0.2 % Immature Gran # (Auto) 0.02 (0.00-0.02) K/uL Neut # (Auto) 6.77 H (1.4-6.5) K/uL Lymph # (Auto) 2.05 (1.2-3.4) K/uL Traverse # (Auto) 1.15 H (0.11-0.59) K/uL Eos # (Auto) 0.04 (0-0.5) K/uL Baso # (Auto) 0.02 (0-0.2) K/uL Sodium 133 L (136-145) mmol/L Potassium 3.7 (3.5-5.1) mmol/L Chloride 93 L (98-107) mmol/L Carbon Dioxide 25 (21-32) mmol/L Anion Gap 15.0 H (3-11) BUN 27 H (7-18) mg/dl Creatinine 1.71 H (0.6-1.2) mg/dl Est Cr Clr Drug Dosing 23.3 ml/min Est GFR ( Amer) 34.1 Est GFR (Non-Af Amer) 29.4 BUN/Creatinine Ratio 15.6 (10-20) Glucose 203 H (70-99) mg/dl Calcium 10.3 H (8.5-10.1) mg/dl Phosphorus 4.5 (2.5-4.9) mg/dl Magnesium 1.9 (1.8-2.4) mg/dl Total Bilirubin 1.3 H (0.2-1) mg/dl AST 417 H (15-37) U/L ALT 561 H (12-78) U/L Alkaline Phosphatase 275 H (45-117) U/L Troponin I 0.133 H* (0-0.045) ng/ml Total Protein 7.7 (6.4-8.2) gm/dl Albumin 3.8 (3.4-5.0) gm/dl Globulin 3.9 (2.5-4.0) gm/dl Albumin/Globulin Ratio 1.0 (0.9-2) Lipase 211 (73-393) U/L TSH 2.040 (0.300-4.500) uIu/ml Imaging Data Radiologist's Impression: Radiology results as stated below per my review and the radiologist's interpretation: HEAD CT NONCONTRAST CT DOSE: 614.27 mGy.cm HISTORY: new seizure TECHNIQUE: Multiaxial CT images of the head were performed without the use of intravenous contrast. Automated exposure control was utilized for this study. A dose lowering technique was utilized adhering to the principles of ALARA. Comparison: Head CT 07/22/2018. Findings: Trace fluid level within the left maxillary sinus. The mastoid air cells are clear. The calvarium and skull base are intact. There is no mass, hematoma, midline shift, acute infarct. White matter hypodensity is nonspecific but suggestive of microvascular ischemic change. The ventricles and sulci demonstrate mild age-related involutional changes. Impression: No acute intracranial abnormality. Atrophy and microvascular ischemic changes. Trace fluid level within the left maxillary sinus. ACT 112: Negative or not required by law. Electronically signed by: Peter Olivarez M.D. 11/11/2019 7:54 PM CHEST AND ABDOMEN 2 VIEWS HISTORY: Generalized abdominal pain. Seizure. COMPARISON: Chest 07/24/2018. FINDINGS: The lungs are clear. The cardiomediastinal silhouette is within normal limits. There is no pneumoperitoneum or pneumatosis. The bowel gas pattern is unremarkable. No evidence for bowel obstruction. No renal or ureteral calculi. 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 Calcifications in the deep pelvis likely represent phleboliths.. IMPRESSION: No acute cardiopulmonary process. No evidence for bowel obstruction. ACT 112: Negative or not required by law. Electronically signed by: Peter Olivarez M.D. 11/11/2019 7:36 PM ABDOMEN AND PELVIS CT WITHOUT CONTRAST CT DOSE: 360.07 mGy.cm HISTORY: abn lft's, recent c.diff, generalized abdominal pain TECHNIQUE: Multiaxial CT images of the abdomen and pelvis were performed without contrast. A dose lowering technique was utilized adhering to the principles of ALARA. COMPARISON STUDY: Abdomen and pelvis CT 07/20/2018. FINDINGS: Punctate calcified granuloma within the right lower lobe posteriorly. The left lung base is clear. No pneumoperitoneum. No pneumatosis. No suspicious lytic or blastic osseous lesions. Advanced degenerative disc disease within the lower lumbar spine is again noted. Small hiatus hernia. The unenhanced liver, spleen, adrenal glands, pancreas, and right kidney are unremarkable. There is a punctate stone within the left kidney. No ureteral stones. No hydronephrosis. No retroperitoneal lymphadenopathy. Multiple small gallstones are identified. Questionable minimal inflammatory change adjacent to the gallbladder. There are 2 stable hypodense lesions within the left kidney with the largest in the lower pole measuring 4.6 cm. These are incompletely characterized on this noncontrast study but statistically represent cysts. The bladder is decompressed but appears unremarkable. The uterus is surgically absent. Bilateral adnexa are within normal limits. No pelvic free fluid. Suboptimal evaluation for bowel pathology due to the lack of intravenous and oral contrast. However, there is no definite bowel wall thickening or obstruction. Colonic diverticulosis. No CT evidence for diverticulitis. Normal appendix. IMPRESSION: 1. Questionable minimal inflammatory change adjacent to the gallbladder. Consider follow-up ultrasound the patient is complaining of right upper quadrant pain and to exclude the possibility of acute cholecystitis. 2. Colonic diverticulosis. No evidence for diverticulitis. 3. Normal appendix. 4. Left-sided nephrolithiasis. No ureteral stones. No hydronephrosis. 5. No definite bowel wall thickening or obstruction. ACT 112: Negative or not required by law. Electronically signed by: Peter Olivarez M.D. 11/11/2019 9:31 PM ABDOMINAL ULTRASOUND, RIGHT UPPER QUADRANT HISTORY: Generalized abdominal pain. Abnormal ct, abn lft's. COMPARISON: Abdomen and pelvis CT 11/11/2019. FINDINGS: Pancreas: Obscured by overlying bowel gas. Liver: Unremarkable. Gallbladder: A few small gallstones. No gallbladder wall thickening. Negative sonographic Baker sign. CBD: 4 mm. Right kidney: No hydronephrosis. IMPRESSION: Cholelithiasis. No gallbladder wall thickening. ACT 112: Negative or not required by law. Electronically signed by: Peter Olivarez M.D. 11/11/2019 10:48 PM ECG Data Attestation: I personally reviewed and interpreted this ECG as follows: Indication: + other (seizure) Rate (beats per minute): 116 Rhythm: + sinus tachycardia ECG Intervals/blocks: + Right Bundle branch block ECG [place]: + Right axis deviation ECG ST segments: no ST depression and no ST elevation ECG Findings: no PACs and no PVCs Comparison ECG Date: from (07/23/18) Change: no significant change Blood Pressure Blood Pressure Findings: Normal blood pressure MDM Narrative Patient here following event at home of convulsive syncope versus seizure. Patient with no prior seizure history. Patient with known history of chronic kidney disease, and creatinine tonight stable compared to prior. Patient with multiple other comorbidities including CAD, COPD, and hypertension. Patient here found to have elevated troponin, it is unclear if this is secondary to the events of this evening versus related to her chronic kidney disease as it has been elevated before. Patient also noted to have elevated LFTs. Upon finding this, patient sent for CT imaging as well as follow-up ultrasound. No evidence of dilated CBD or pancreatitis. No evidence of acute cholecystitis, however concern given mild intermittent abdominal pain and abnormal LFTs. Patient had no concerning ectopy or dysrhythmia noted on telemetry while in the emergency room and remained hemodynamically stable throughout. No episodes of recurrent syncope or seizure-like activity. Discussed all results with patient and family at bedside as well as plan for additional inpatient evaluation and management, she verbalized understanding and was in agreement. Case discussed with hospitalist. Impression & Plan Acute alteration in mental status, ANDRESSA (acute kidney injury), Abnormal LFTs, Acute dehydration, Lightheadedness, Elevated troponin, Abdominal pain, Cholelithiasis Discharge Plan Visit Data *Final* Discharge Date/Time: 11/12/19 00:49 Chief Complaint: Seizure Stated Complaint: WEAKNESS, SEIZURE, HIGH BP ED Provider: Delmy Huynh Discharge Problem: Acute alteration in mental status, ANDRESSA (acute kidney injury), Abnormal LFTs, Acute dehydration, Lightheadedness, Elevated troponin, Abdominal pain, Cholelithiasis Patient Disposition: Admitted As Inpatient Condition: Fair Discharge Instructions Interventions: ED Discharge Assessment Last Done: 11/12/19 00:49 The tammyibe's documentation has been prepared under my direction and personally reviewed by me in its entirety. I confirm that the note above accurately reflects all work, treatment, procedures, and medical decision making performed by me.
[2019-11-11] MEDS ORDERED: ERTAPENEM SODIUM 10 ML IV STA (23:56)
--- NOTE | 2019-11-11 23:57 | History & Physical Report ---
Date of Service November 11, 2019 Assessment & Plan (1) Syncope: Secondary to possible orthostasis given low BP upon arrival at the ER, abdominal pain from possible cholecystitis rule out CBD obstruction given abnormal LFTs, overt sepsis possibly downplayed by chronic steroid Rx Rule out new onset seizure given patient account of events chronic diastolic heart failure as per records (EF 55 to 59%, DSE 2019), patient on the dry side CAD as per records hypertension, borderline BP upon arrival at the ER currently elevated Troponin elevation possibly secondary to above asthma/COPD as per records, pulmonary status at baseline rheumatoid arthritis on chronic steroid Rx DM 2 diet-controlled, well-controlled as of recent outpatient hemoglobin A1c of 5.23 July 2019 recurrent C. difficile ongoing oral hello vancomycin taper Medical telemetry for syncopal event, troponin elevation Seizure precautions, Ativan as needed, hold home Tramadol until seizure disorder ruled out EEG, MRI brain for possible seizure work-up Neurology consult RE possible seizure activity Ertapenem for possible cholecystitis MRCP RE abnormal LFTs rule out CBD obstruction Surgery consult RE possible cholecystitis GI consult RE abnormal LFTs in the setting of possible cholecystitis (ER provider already in touch with Dr. Mcneal.) Basal insulin, ISS BG goal [id number], update hemoglobin A1c DVT prophylaxis. SCDs RE possible surgery Full code Text document was generated using Jukely voice recognition software. It may contain grammatical or spelling errors. Kindly contact undersigned for clarification of any documentation item in question. History of Present Illness Chief Complaint: Passed out Primary Care Provider: Leni Moyer, History obtained from patient, family and records. Medical history significant for chronic diastolic heart failure as per records (EF 55 to 59%, DSE 2019), CAD as per records, hypertension, hyperlipidemia, asthma/COPD as per records, rheumatoid arthritis on chronic steroid Rx, DM 2 diet-controlled, recurrent C. difficile ongoing vancomycin taper, history neuropathy as per records, mood disorder. Recent confinement July 2018 for respiratory failure secondary to encephalopathy status post intubation. Patient [place] [facility] [place]. Patient seen at [facility] office 2 weeks ago for recurrent C. difficile. Patient already on vancomycin taper course at time of consultation. Consideration for possible fecal transplant as per note. Patient not feeling well the last few days. Worsening upper abdominal pain the last 2 days although diarrhea improving. Poor appetite. Some chills. Episode of emesis at home as per patient. Patient denies chest pain, S OB symptoms. As per patient's , patient's BP kind of high this morning. Patient later noted to be pale by followed by patient passing out and leaning towards a chair at home. Transient head and upper extremity shaking lasting about 20 seconds as per . Patient laying down by . Upward eyeball rolling movements noted. Patient kind of confused after the episode. No tongue biting, incontinence episodes witnessed as per . No tramadol intake yesterday as per . Patient brought to the ER for evaluation. 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 Allergies Allergy/AdvReac Type Severity Reaction Status Date / Time methotrexate Allergy Intermediate RASH/PNEUMO Verified 11/11/19 23:47 NITIS Penicillins Allergy Intermediate hives Verified 11/11/19 23:47 ranitidine Allergy Intermediate rash Verified 11/11/19 23:47 Insecticides Allergy Severe DIFFICULTY Uncoded 11/11/19 23:47 BREATHING; FULL BODY SWELLING Home Medications Home Medications Medication Instructions Recorded Confirmed Type aspirin [Aspir-81] 81 mg PO HS 07/20/18 11/12/19 History duloxetine 60 mg PO DAILY 07/20/18 11/12/19 History folic acid 1 mg PO QAM 07/20/18 11/12/19 History hydroxychloroquine 200 mg PO HS 07/20/18 11/12/19 History lisinopril 2.5 mg PO QAM 07/20/18 11/12/19 History metoprolol tartrate 25 mg PO BID 07/20/18 11/12/19 History montelukast 10 mg PO HS 07/20/18 11/12/19 History pantoprazole 40 mg PO QAM 07/20/18 11/12/19 History prednisone 5 - 10 mg PO QAM 07/20/18 11/12/19 History thiamine mononitrate (vit B1) 50 mg PO QAM 07/20/18 11/12/19 History Ocuvite with Lutein 1 tab PO QAM 03/07/19 11/12/19 History albuterol sulfate [ProAir HFA] 2 puff INHALATION Q4 PRN 03/07/19 11/12/19 History betamethasone dipropionate 1 applic TOPICAL DAILY PRN 03/07/19 11/12/19 History cholecalciferol (vitamin D3) 2,000 unit PO QAM 03/07/19 11/12/19 History [Vitamin D3] clindamycin HCl 600 mg PO UD PRN 03/07/19 11/12/19 History cyanocobalamin (vitamin B-12) 2,000 mcg PO 3XWK 03/07/19 11/12/19 History [Vitamin B-12] fluticasone propionate [Flonase 2 spray INTRANASAL DAILY PRN 03/07/19 11/12/19 History Allergy Relief] latanoprost [Xalatan] 1 drp OPHTHALMIC (EYE) HS 03/07/19 11/12/19 History leflunomide [Arava] 10 mg PO QAM 03/07/19 11/12/19 History levalbuterol HCl [Xopenex] 1.25 mg INHALATION Q4 PRN 03/07/19 11/12/19 History nitroglycerin 0.4 mg SUBLINGUAL UD 03/07/19 11/12/19 History nystatin 1 applic TOPICAL TID PRN 03/07/19 11/12/19 History tramadol 50 mg PO BID PRN 03/07/19 11/12/19 History triamcinolone acetonide 1 applic TOPICAL BID PRN 03/07/19 11/12/19 History doxylamine-dextromethorphan [Vicks 30 ml PO Q6H PRN 11/12/19 11/12/19 History NyQuil Cough] fluticasone furoate-vilanterol 1 inh INHALATION DAILY 11/12/19 11/12/19 History tjidgjaf-qnz-rkvm-FA-lutein 1 tab PO DAILY 11/12/19 11/12/19 History [Centrum Silver Women] rosuvastatin 10 mg PO DAILY 11/12/19 11/12/19 History vancomycin 125 mg PO DIRECTED 11/12/19 11/12/19 History Past Med/Surg History Medical History Asthma (Chronic) inhalers prn Chronic steroid use prednisone daily CKD (chronic kidney disease), stage III (Chronic) COPD (chronic obstructive pulmonary disease) (Chronic) inhalers prn Depression (Chronic) DJD of right shoulder DM type 2 (diabetes mellitus, type 2) (Chronic) Dyslipidemia (Chronic) Gastroparesis (Chronic) GERD (gastroesophageal reflux disease) (Chronic) Glaucoma (Chronic) Gout H/O interstitial lung disease (Chronic) "drug induced- methotrexate " Heart disease (Chronic) HTN (hypertension) (Chronic) Migraines (Chronic) NSTEMI (non-ST elevated myocardial infarction) (Acute 08/06/13) Osteoarthritis (Chronic) Peripheral neuropathy (Chronic) Rheumatoid arthritis (Chronic) "on chronic steroids" Surgical History H/O cardiac catheterization (Chronic) "cath 07/2013- single vessel CAD involving apical segment LAD, medical manage ment indicated" H/O colonoscopy (Chronic) History of esophagogastroduodenoscopy (EGD) History of hysterectomy (Chronic) History of tooth extraction all top teeth S/P removal of ovarian cyst (Chronic) S/P rotator cuff repair (Chronic) "right shoulder" S/P total knee arthroplasty (Chronic) "left knee" Family History Father Family history of diabetes mellitus Other No family history of adverse response to anesthesia Social History Preferred Language: Latvian Communication Ability: Effective Regional Hr Manager Required: No Beliefs That Will Affect Care: None marital status: Current Living Situation: Spouse Feels Safe at Home: Yes Safety Concerns: Feels Safe At This Time Smoking Status: Never smoker Do You Dip or Chew Tobacco: No ; Second Hand Exposure: No ; Hx Alcohol Use: No Hx Substance Use: No Review of Systems Review of Systems: As per HPI, all 10 systems reviewed, all other ROS negative Physical Exam Physical Exam: GENERAL: Slightly uncomfortable, pleasant, oriented today, no respiratory distress SKIN: Normal color, warm HEENT: Gutierrez palpebral conjunctivae, no ptosis, dry buccal mucosa NECK : Supple, no tenderness CHEST : CTA, no tenderness HEART : Tachycardic, no obvious murmurs ABDOMEN: Some distention, epigastric tenderness EXTREMITIES : minimal LE swelling, no LE tenderness, no other conspicuous deformities noted NEUROLOGIC : Coherent, oriented today, no facial asymmetry, no other gross focality Results & Data Vital Signs (Past 12 Hours) Vital Signs Temp Pulse Pulse Resp BP BP Pulse Ox 11/11/19 22:22 103 H 18 114/80 95 11/11/19 21:34 102 H 20 114/80 98 11/11/19 19:43 105 H 20 114/80 95 11/11/19 18:32 116 H 20 146/91 H 99 11/11/19 18:30 114 H 97 11/11/19 18:13 36.6 C 127 H 20 89/68 L 97 Laboratory Results Laboratory Results WBC 10.05 K/uL (4.8-10.8) 11/11/19 18:30 RBC 5.36 M/uL (4.2-5.4) 11/11/19 18:30 Hgb 16.7 g/dL (12.0-16.0) H 11/11/19 18:30 Hct 47.3 % (37-47) H 11/11/19 18:30 MCV 88.2 fL (80-100) 11/11/19 18:30 MCH 31.2 pg (25-34) 11/11/19 18:30 MCHC 35.3 g/dL (32-36) 11/11/19 18:30 RDW Std Deviation 47.3 fL (36.4-46.3) H 11/11/19 18:30 RDW Coeff of Xochitl 14.7 % (11.5-14.5) H 11/11/19 18:30 Plt Count 187 K/uL (130-400) 11/11/19 18:30 MPV 11.3 fL (7.4-10.4) H 11/11/19 18:30 Immature Gran % (Auto) 0.2 % 11/11/19 18:30 Neut % (Auto) 67.4 % 11/11/19 18:30 Lymph % (Auto) 20.4 % 11/11/19 18:30 [place] % (Auto) 11.4 % 11/11/19 18:30 Eos % (Auto) 0.4 % 11/11/19 18:30 Baso % (Auto) 0.2 % 11/11/19 18:30 Immature Gran # (Auto) 0.02 K/uL (0.00-0.02) 11/11/19 18:30 Neut # (Auto) 6.77 K/uL (1.4-6.5) H 11/11/19 18:30 Lymph # (Auto) 2.05 K/uL (1.2-3.4) 11/11/19 18:30 [place] # (Auto) 1.15 K/uL (0.11-0.59) H 11/11/19 18:30 Eos # (Auto) 0.04 K/uL (0-0.5) 11/11/19 18:30 Baso # (Auto) 0.02 K/uL (0-0.2) 11/11/19 18:30 Sodium 133 mmol/L (136-145) L 11/11/19 18:30 Potassium 3.7 mmol/L (3.5-5.1) 11/11/19 18:30 Chloride 93 mmol/L (98-107) L 11/11/19 18:30 Carbon Dioxide 25 mmol/L (21-32) 11/11/19 18:30 Anion Gap 15.0 (3-11) H 11/11/19 18:30 BUN 27 mg/dl (7-18) H 11/11/19 18:30 Creatinine 1.71 mg/dl (0.6-1.2) H 11/11/19 18:30 Est Cr Clr Drug Dosing 23.3 ml/min 11/11/19 18:30 Est GFR ( Amer) 34.1 11/11/19 18:30 Est GFR (Non-Af Amer) 29.4 11/11/19 18:30 BUN/Creatinine Ratio 15.6 (10-20) 11/11/19 18:30 Glucose 203 mg/dl (70-99) H 11/11/19 18:30 Calcium 10.3 mg/dl (8.5-10.1) H 11/11/19 18:30 Phosphorus 4.5 mg/dl (2.5-4.9) 11/11/19 18:30 Magnesium 1.9 mg/dl (1.8-2.4) 11/11/19 18:30 Total Bilirubin 1.3 mg/dl (0.2-1) H 11/11/19 18:30 AST 417 U/L (15-37) H 11/11/19 18:30 ALT 561 U/L (12-78) H 11/11/19 18:30 Alkaline Phosphatase 275 U/L (45-117) H 11/11/19 18:30 Total Protein 7.7 gm/dl (6.4-8.2) 11/11/19 18: Albumin 3.8 gm/dl (3.4-5.0) 11/11/19 18:30 Globulin 3.9 gm/dl (2.5-4.0) 11/11/19 18:30 Albumin/Globulin Ratio 1.0 (0.9-2) 11/11/19 18:30 Lipase 211 U/L (73-393) 11/11/19 18: TSH 2.040 uIu/ml (0.300-4.500) 11/11/19 18:[address] head: No acute intracranial abnormality. Atrophy and microvascular ischemic changes. Trace fluid level within the left maxillary sinus. CT abdomen pelvis: 1. Questionable minimal inflammatory change adjacent to the gallbladder. Consider follow-up ultrasound the patient is complaining of right upper quadrant pain and to exclude the possibility of acute cholecystitis. 2. Colonic diverticulosis. No evidence for diverticulitis. 3. Normal appendix. 4. Left-sided nephrolithiasis. No ureteral stones. No hydronephrosis. 5. No definite bowel wall thickening or obstruction. Gallbladder ultrasound : Cholelithiasis. No gallbladder wall thickening. Chest/abdomen x-ray: No acute cardiopulmonary process. No evidence for bowel obstruction. EKG as per my interpretation: Rate 115, sinus tachycardia, RAD, LP FB, RBBB, T wave inversion, inferior and lateral leads
[2019-11-12] MEDS ORDERED: HYDROmorphone INJ 0.5 MG/0.5 ML SYR IV PRN (01:18)
[2019-11-12] MEDS ORDERED: LORazepam 1 MG/2 ML VIAL IV PRN (01:18)
[2019-11-12] MEDS ORDERED: ACETAMINOPHEN 325 MG TAB PO PRN (01:18)
[2019-11-12] MEDS ORDERED: OXYCODONE HCL IR 5 MG TAB (IMMEDIATE RELEASE) PO PRN (01:18)
[2019-11-12] MEDS ORDERED: PROMETHAZINE HCL 12.5 MG in SODIUM CHLORIDE 0.9% 50 ML IV PRN (01:18)
[2019-11-12] MEDS: NSS + 20MEQ KCL 20 MEQ/1,000 ML BAG IV SCH ×2 (02:09→16:20)
[2019-11-12] MEDS: SODIUM CHLORIDE 0.9% 1000ML 1,000 ML IV SCH (02:12)
[2019-11-12] MEDS ORDERED: METOPROLOL TARTRATE 1 MG/ML VIAL IV STA (02:34)
[2019-11-12] MEDS ORDERED: NON-FORMULARY MEDICATION (Vancomycin 125 MG) PO SCH (02:45)
[2019-11-12] MEDS ORDERED: ERTAPENEM CONSULT ACTIVE PRN (03:30)
[2019-11-12] MEDS ORDERED: GLUCOSE 10 TABS/TUBE PO PRN (04:23)
[2019-11-12] MEDS ORDERED: INSULIN GLARGINE SOLOSTAR 100 UNITS/ML 3 ML PEN SC STA (04:23)
[2019-11-12] MEDS ORDERED: DEXTROSE 50% 50 ML SYRINGE IV PRN (04:23)
[2019-11-12] MEDS ORDERED: CARBOHYDRATES FOR HYPOGLYCEMIA PO PRN (04:23)
[2019-11-12] MEDS ORDERED: GLUCOSE 40% GEL 15 GM TUBE PO PRN (04:23)
[2019-11-12] MEDS ORDERED: GLUCAGON FOR INJ 1 MG VIAL SQ PRN (04:23)
[2019-11-12] MEDS: INSULIN ASPART 100 UNITS/ML 3 ML PEN SC SCH ×4 (05:17→18:39)
[2019-11-12 05:44] LABS: Basophils # (auto) 0.03 K/uL (0-0.2); Basophils % (auto) 0.4 %; Eosinophils # (auto) 0.05 K/uL (0-0.5); Eosinophils % (auto) 0.7 %; Hematocrit (blood only) 40.3 % (37-47); Hemoglobin 13.9 g/dL (12.0-16.0); Immature Granulocytes # (auto) 0.01 K/uL (0.00-0.02); Immature Granulocytes % (auto) 0.1 %; Lymphocytes # (auto) 2.23 K/uL (1.2-3.4); Lymphocytes % (auto) 30.9 %; Mean Corpuscular Hemoglobin 30.7 pg (25-34); Mean Corpuscular Hgb Conc 34.5 g/dL (32-36); Mean Platelet Volume 10.1 fL (7.4-10.4); Monocytes # (auto) 0.84 K/uL (0.11-0.59); Monocytes % (auto) 11.7 %; Neutrophils # (auto) 4.05 K/uL (1.4-6.5); Neutrophils % (auto) 56.2 %; Platelet Count 136 K/uL (130-400); RDW Coefficient of Variation 14.7 % (11.5-14.5); RDW Standard Deviation 47.8 fL (36.4-46.3); Red Blood Count 4.53 M/uL (4.2-5.4); White Blood Count 7.21 K/uL (4.8-10.8)
[2019-11-12 06:05] LABS: Partial Thromboplastin Ratio 0.9; Partial Thromboplastin Time 23.4 Seconds (21.0-31.0)
[2019-11-12 06:27] LABS: Albumin Level 3.2 gm/dl (3.4-5.0); BUN Creatinine Ratio 21.3 (10-20); Creatinine Clr Calc Pharmacy 32.9 ml/min; Est GFR (African American) 50.7; Est GFR (Non-African American) 43.8; Potassium 3.8 mmol/L (3.5-5.1)
[2019-11-12 06:33] LABS: Estimated Average Glucose 128 mg/dl; Hemoglobin A1C 6.1 % (4.5-5.6)
[2019-11-12 06:39] LABS: Bilirubin,Total 0.9 mg/dl (0.2-1); Globulin 3.1 gm/dl (2.5-4.0); Total Protein 6.3 gm/dl (6.4-8.2); Troponin I 0.128 ng/ml (0-0.045)
[2019-11-12] MEDS: CEROVITE ADV FORMULA TAB PO SCH (08:25)
[2019-11-12] MEDS: RASPBERRY SYRUP 5 ML UDP PO SCH (08:25)
[2019-11-12] MEDS: THIAMINE HCL 100 MG TAB PO SCH (08:25)
[2019-11-12] MEDS: PANTOprazole 40 MG TAB PO SCH (08:25)
[2019-11-12] MEDS: METOPROLOL TARTRATE 25 MG TAB PO SCH ×2 (08:25→20:00)
[2019-11-12] MEDS: DULOXETINE HCL 60 MG CAP PO SCH (08:25)
[2019-11-12] MEDS: FOLIC ACID 1 MG TAB PO SCH (08:25)
[2019-11-12] MEDS: VANCOMYCIN HCL 125 MG/2.5ML SOLN PO SCH (08:25)
[2019-11-12] MEDS: predniSONE 5 MG TAB PO SCH (08:25)
[2019-11-12] MEDS ORDERED: VIT A C AND E LUTEIN MINERALS PO SCH (09:00)
[2019-11-12] MEDS ORDERED: ROSUVASTATIN CALCIUM 10 MG TAB PO SCH (09:00)
--- NOTE | 2019-11-12 09:28 | Hospitalist Progress Note ---
Date of Service November 12, 2019 Assessment & Plan (1) Syncope: Secondary to possible orthostasis given low BP upon arrival at the ER, abdominal pain from possible cholecystitis rule out CBD obstruction given abnormal LFTs, overt sepsis possibly downplayed by chronic steroid Rx Rule out new onset seizure given patient account of events Chronic diastolic heart failure as per records (EF 55 to 59%, DSE 2019), patient on the dry side CAD as per records Hypertension, borderline BP upon arrival at the ER currently elevated Troponin elevation possibly secondary to above Medical telemetry for syncopal event, troponin elevation - on my review of system this AM, pt reported on and off chest pain in the past week or so - given hx of poss. LOC, trop elevation and plan for poss. surgery tmrw, will order echo and consult cardiology for further eval - cardiology evaluated the pt, hx of CAD, chronic elev. trop., reported hx of chest pain seems MSK in origin, pt is moderate periop. risk, no intervention that would lower this risk Poss. Cholecystitis Surgery consult RE possible cholecystitis Plan for poss. cholecystectomy tmrw AM Ertapenem for possible cholecystitis Elevated LFTs GI consult RE abnormal LFTs in the setting of possible cholecystitis (ER provider already in touch with Dr. 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 seizure-like activity (observed by ) Seizure precautions, Ativan as needed, hold home Tramadol until seizure disorder ruled out EEG, MRI brain for possible seizure work-up Neurology consult RE possible seizure activity DM 2 diet-controlled, well-controlled as of recent outpatient hemoglobin A1c of 5.23 July 2019 Basal insulin, ISS BG goal [id number], update hemoglobin A1c asthma/COPD as per records, pulmonary status at baseline rheumatoid arthritis on chronic steroid Rx DVT prophylaxis. SCDs RE possible surgery Full code Admission and Anticipated Discharge Date Admission Date: November 11, 2019 Subjective Pt is lying in bed, in NAD. She is awake and alert and answers questions appropriately. at the bedside. She is currently in no acute distress, reports hx of RUQ tenderness, says currently pain does not bother her much. Currently denies any fever, chills, shortness of breath, nausea, vomiting, also denies chest pain at the moment but says she has on and off chest pain for the past week or so. She also reports more formed stools recently (treated for c.diff). Review of Systems Review of Systems: All systems reviewed & are unremarkable except as noted in HPI & below Constitutional: no fever and no chills Respiratory: no cough and no dyspnea Cardiovascular: no chest pain (no current CP, but hx of on and off CP in the past week or so) and no palpitations Gastrointestinal: + abdominal pain (RUQ); no nausea, no vomiting and no blood in stools Physical Exam Physical Exam: GENERAL: elderly female lying in bed, in NAD HEENT: NC/AT, EOMI, PERRL, dry buccal mucosa NECK : Supple, no tenderness CHEST : CTAB, no wheezing, rhonchi, crackles HEART : RRR, no obvious murmurs ABDOMEN: + bowel sounds, soft, obese, some distention, RUQ tenderness EXTREMITIES : no LE edema b/l, no LE tenderness, moves extremities spontaneosly SKIN: warm, dry NEUROLOGIC : alert and oriented,answers questions appropriately, no facial asymmetry, speech fluent, moves extremities spontaneously Results & Data ([facility]) Vital Signs (Past 12 Hours) Vital Signs Temp Pulse Pulse Resp BP Pulse Ox Pulse Ox 11/12/19 07:00 37.0 C 89 20 143/83 H 94 11/12/19 04:00 37.1 C 82 20 142/73 H 95 11/12/19 02:11 103 H 164/89 H 11/12/19 01:55 101 H 11/12/19 01:14 37 C 110 H 20 171/120 H 94 94 11/12/19 00:50 103 H 20 129/86 96 11/11/19 23:56 103 H 20 154/91 H 96 11/11/19 22:22 103 H 18 114/80 95 11/11/19 21:34 102 H 20 114/80 98 Laboratory Results 11/12/19 11/12/19 11/12/19 Range/Units 07:54 05:35 05:35 WBC (4.8-10.8) K/uL RBC (4.2-5.4) M/uL Hgb (12.0-16.0) g/dL Hct (37-47) % MCV (80-100) fL MCH (25-34) pg MCHC (32-36) g/dL RDW Std Deviation (36.4-46.3) fL RDW Coeff of Xochitl (11.5-14.5) % Plt Count (130-400) K/uL MPV (7.4-10.4) fL Immature Gran % (Auto) % Neut % (Auto) % Lymph % (Auto) % Deuel % (Auto) % Eos % (Auto) % Baso % (Auto) % Immature Gran # (Auto) (0.00-0.02) K/uL Neut # (Auto) (1.4-6.5) K/uL Lymph # (Auto) (1.2-3.4) K/uL Deuel # (Auto) (0.11-0.59) K/uL Eos # (Auto) (0-0.5) K/uL Baso # (Auto) (0-0.2) K/uL APTT (21.0-31.0) Seconds PTT Ratio Sodium (136-145) mmol/L Potassium (3.5-5.1) mmol/L Chloride (98-107) mmol/L Carbon Dioxide (21-32) mmol/L Anion Gap (3-11) BUN (7-18) mg/dl Creatinine (0.6-1.2) mg/dl Est Cr Clr Drug Dosing ml/min Est GFR ( Amer) Est GFR (Non-Af Amer) BUN/Creatinine Ratio (10-20) Glucose (70-99) mg/dl POC Glucose 110 H (70-99) mg/dl Estimat Average Glucose 128 mg/dl Hemoglobin A1c 6.1 H (4.5-5.6) % Calcium (8.5-10.1) mg/dl Phosphorus (2.5-4.9) mg/dl Magnesium (1.8-2.4) mg/dl Total Bilirubin (0.2-1) mg/dl AST (15-37) U/L ALT (12-78) U/L Alkaline Phosphatase (45-117) U/L Ammonia 15.0 (11-32) umol/L Troponin I (0-0.045) ng/ml Total Protein (6.4-8.2) gm/dl Albumin (3.4-5.0) gm/dl Globulin (2.5-4.0) gm/dl Albumin/Globulin Ratio (0.9-2) Lipase (73-393) U/L TSH (0.300-4.500) uIu/ml 11/12/19 11/12/19 11/12/19 Range/Units 05:35 05:35 05:35 WBC 7.21 (4.8-10.8) K/uL RBC 4.53 (4.2-5.4) M/uL Hgb 13.9 (12.0-16.0) g/dL Hct 40.3 (37-47) % MCV 89.0 (80-100) fL MCH 30.7 (25-34) pg MCHC 34.5 (32-36) g/dL RDW Std Deviation 47.8 H (36.4-46.3) fL RDW Coeff of Xochitl 14.7 H (11.5-14.5) % Plt Count 136 (130-400) K/uL MPV 10.1 (7.4-10.4) fL Immature Gran % (Auto) 0.1 % Neut % (Auto) 56.2 % Lymph % (Auto) 30.9 % Deuel % (Auto) 11.7 % Eos % (Auto) 0.7 % Baso % (Auto) 0.4 % Immature Gran # (Auto) 0.01 (0.00-0.02) K/uL Neut # (Auto) 4.05 (1.4-6.5) K/uL Lymph # (Auto) 2.23 (1.2-3.4) K/uL Deuel # (Auto) 0.84 H (0.11-0.59) K/uL Eos # (Auto) 0.05 (0-0.5) K/uL Baso # (Auto) 0.03 (0-0.2) K/uL APTT 23.4 (21.0-31.0) Seconds PTT Ratio 0.9 Sodium 137 (136-145) mmol/L Potassium 3.8 (3.5-5.1) mmol/L Chloride 102 (98-107) mmol/L Carbon Dioxide 27 (21-32) mmol/L Anion Gap 8.0 (3-11) BUN 26 H (7-18) mg/dl Creatinine 1.23 H D (0.6-1.2) mg/dl Est Cr Clr Drug Dosing 32.9 ml/min Est GFR ( Amer) 50.7 Est GFR (Non-Af Amer) 43.8 BUN/Creatinine Ratio 21.3 H (10-20) Glucose 112 H (70-99) mg/dl POC Glucose (70-99) mg/dl Estimat Average Glucose mg/dl Hemoglobin A1c (4.5-5.6) % Calcium 9.0 (8.5-10.1) mg/dl Phosphorus (2.5-4.9) mg/dl Magnesium (1.8-2.4) mg/dl Total Bilirubin 0.9 (0.2-1) mg/dl AST 266 H (15-37) U/L ALT 399 H (12-78) U/L Alkaline Phosphatase 199 H (45-117) U/L Ammonia (11-32) umol/L Troponin I 0.128 H* (0-0.045) ng/ml Total Protein 6.3 L (6.4-8.2) gm/dl Albumin 3.2 L (3.4-5.0) gm/dl Globulin 3.1 (2.5-4.0) gm/dl Albumin/Globulin Ratio 1.0 (0.9-2) Lipase (73-393) U/L TSH (0.300-4.500) uIu/ml 11/12/19 11/11/19 11/11/19 Range/Units 05:05 23:24 18:30 WBC (4.8-10.8) K/uL RBC (4.2-5.4) M/uL Hgb (12.0-16.0) g/dL Hct (37-47) % MCV (80-100) fL MCH (25-34) pg MCHC (32-36) g/dL RDW Std Deviation (36.4-46.3) fL RDW Coeff of Xochitl (11.5-14.5) % Plt Count (130-400) K/uL MPV (7.4-10.4) fL Immature Gran % (Auto) % Neut % (Auto) % Lymph % (Auto) % Deuel % (Auto) % Eos % (Auto) % Baso % (Auto) % Immature Gran # (Auto) (0.00-0.02) K/uL Neut # (Auto) (1.4-6.5) K/uL Lymph # (Auto) (1.2-3.4) K/uL Deuel # (Auto) (0.11-0.59) K/uL Eos # (Auto) (0-0.5) K/uL Baso # (Auto) (0-0.2) K/uL APTT (21.0-31.0) Seconds PTT Ratio Sodium 133 L (136-145) mmol/L Potassium 3.7 (3.5-5.1) mmol/L Chloride 93 L (98-107) mmol/L Carbon Dioxide 25 (21-32) mmol/L Anion Gap 15.0 H (3-11) BUN 27 H (7-18) mg/dl Creatinine 1.71 H (0.6-1.2) mg/dl Est Cr Clr Drug Dosing 23.3 ml/min Est GFR ( Amer) 34.1 Est GFR (Non-Af Amer) 29.4 BUN/Creatinine Ratio 15.6 (10-20) Glucose 203 H (70-99) mg/dl POC Glucose 123 H (70-99) mg/dl Estimat Average Glucose mg/dl Hemoglobin A1c (4.5-5.6) % Calcium 10.3 H (8.5-10.1) mg/dl Phosphorus 4.5 (2.5-4.9) mg/dl Magnesium 1.9 (1.8-2.4) mg/dl Total Bilirubin 1.3 H (0.2-1) mg/dl AST 417 H (15-37) U/L ALT 561 H (12-78) U/L Alkaline Phosphatase 275 H (45-117) U/L Ammonia (11-32) umol/L Troponin I 0.133 H* (0-0.045) ng/ml Total Protein 7.7 (6.4-8.2) gm/dl Albumin 3.8 (3.4-5.0) gm/dl Globulin 3.9 (2.5-4.0) gm/dl Albumin/Globulin Ratio 1.0 (0.9-2) Lipase 211 (73-393) U/L TSH 2.040 (0.300-4.500) uIu/ml 11/11/19 Range/Units 18:30 WBC 10.05 (4.8-10.8) K/uL RBC 5.36 (4.2-5.4) M/uL Hgb 16.7 H (12.0-16.0) g/dL Hct 47.3 H (37-47) % MCV 88.2 (80-100) fL MCH 31.2 (25-34) pg MCHC 35.3 (32-36) g/dL RDW Std Deviation 47.3 H (36.4-46.3) fL RDW Coeff of Xochitl 14.7 H (11.5-14.5) % Plt Count 187 (130-400) K/uL MPV 11.3 H (7.4-10.4) fL Immature Gran % (Auto) 0.2 % Neut % (Auto) 67.4 % Lymph % (Auto) 20.4 % Deuel % (Auto) 11.4 % Eos % (Auto) 0.4 % Baso % (Auto) 0.2 % Immature Gran # (Auto) 0.02 (0.00-0.02) K/uL Neut # (Auto) 6.77 H (1.4-6.5) K/uL Lymph # (Auto) 2.05 (1.2-3.4) K/uL Deuel # (Auto) 1.15 H (0.11-0.59) K/uL Eos # (Auto) 0.04 (0-0.5) K/uL Baso # (Auto) 0.02 (0-0.2) K/uL APTT (21.0-31.0) Seconds PTT Ratio Sodium (136-145) mmol/L Potassium (3.5-5.1) mmol/L Chloride (98-107) mmol/L Carbon Dioxide (21-32) mmol/L Anion Gap (3-11) BUN (7-18) mg/dl Creatinine (0.6-1.2) mg/dl Est Cr Clr Drug Dosing ml/min Est GFR ( Amer) Est GFR (Non-Af Amer) BUN/Creatinine Ratio (10-20) Glucose (70-99) mg/dl POC Glucose (70-99) mg/dl Estimat Average Glucose mg/dl Hemoglobin A1c (4.5-5.6) % Calcium (8.5-10.1) mg/dl Phosphorus (2.5-4.9) mg/dl Magnesium (1.8-2.4) mg/dl Total Bilirubin (0.2-1) mg/dl AST (15-37) U/L ALT (12-78) U/L Alkaline Phosphatase (45-117) U/L Ammonia (11-32) umol/L Troponin I (0-0.045) ng/ml Total Protein (6.4-8.2) gm/dl Albumin (3.4-5.0) gm/dl Globulin (2.5-4.0) gm/dl Albumin/Globulin Ratio (0.9-2) Lipase (73-393) U/L TSH (0.300-4.500) uIu/ml Medications Administered Current Inpatient Medications Acetaminophen (Tylenol) 325 mg PO Q6H PRN PRN Reason: Pain or Fever Stop: 12/12/19 01:17 Aspirin (Ecotrin Ectab) 81 mg PO HS KARLA Stop: 12/12/19 20:59 Dextrose (Dextrose 50%) 25 - 50 ml IV UD PRN; Protocol PRN Reason: Hypoglycemia Protocol Stop: 12/12/19 04:22 Duloxetine HCl (Cymbalta) 60 mg PO DAILY KARLA Stop: 12/12/19 08:59 Last Admin: 11/12/19 08:25 Dose: 60 mg Documented by: Ertapenem (Consult) 1 ea N/A UD PRN PRN Reason: Consult Stop: 12/12/19 03:29 Folic Acid (Folvite) 1 mg PO QAM KARLA Stop: 12/12/19 08:59 Last Admin: 11/12/19 08:25 Dose: 1 mg Documented by: Glucagon (Glucagen) 1 mg SQ UD PRN; Protocol PRN Reason: Hypoglycemia Protocol Stop: 12/12/19 04:22 Glucose (Dex4 Glucose) 4 - 8 tabs PO UD PRN; Protocol PRN Reason: Hypoglycemia Protocol Stop: 12/12/19 04:22 Glucose (Glucose 40%) 15 - 30 gm PO UD PRN; Protocol PRN Reason: Hypoglycemia Protocol Stop: 12/12/19 04:22 Hydromorphone HCl (Dilaudid) 0.25 mg IV Q3H PRN PRN Reason: Pain Stop: 11/26/19 01:17 Hydroxychloroquine Sulfate (Plaquenil) 200 mg PO HS KARLA Stop: 12/12/19 20:59 Potassium Chloride/Sodium Chloride (Normal Saline W/20 Meq Kcl) 20 meq in 1,000 mls @ 75 mls/hr IV .[id number] [facility] Stop: 12/12/19 01:17 Last Admin: 11/12/19 02:09 Dose: 75 mls/hr Documented by: Promethazine HCl 12.5 mg/ (Sodium Chloride) 50.5 mls @ 202 mls/hr IV Q6H PRN PRN Reason: Nausea And Vomiting Stop: 12/12/19 01:17 Lorazepam (Ativan) 1 mg in 2 mls @ 0.5 mls/min IV Q10M PRN PRN Reason: seizures Stop: 12/12/19 01:17 Ertapenem 500 mg/ Sodium (Chloride) 55 mls @ 110 mls/hr IV Q24H [facility]; Protocol Stop: 11/21/19 21:59 Insulin Aspart (Novolog Flexpen) 0 units SC Q6 [facility] Stop: 12/12/19 04:24 Last Admin: 11/12/19 08:18 Dose: Not Given Documented by: Insulin Glargine (Lantus Solostar Pen) 5 units SC DAILY [facility] Stop: 12/13/19 08:59 Latanoprost (Xalatan Oph) 1 drops OP HS [facility] Stop: 12/12/19 20:59 Metoprolol Tartrate (Lopressor) 25 mg PO BID [facility] Stop: 12/12/19 08:59 Last Admin: 11/12/19 08:25 Dose: 25 mg Documented by: Miscellaneous (Carbohydrates For Hypoglycemia) 15 - 30 gm PO UD PRN PRN Reason: Hypoglycemia Protocol Stop: 12/12/19 04:22 Montelukast Sodium (Singulair) 10 mg PO HS [facility] Stop: 12/12/19 20:59 Multivitamins/Minerals (Multivitamin W/ Minerals Tab) 1 tab PO QAM [facility] Stop: 12/12/19 08:59 Last Admin: 11/12/19 08:25 Dose: 1 tab Documented by: Oxycodone HCl (Roxicodone Immediate Rel) 5 mg PO Q4H PRN PRN Reason: Pain Stop: 11/26/19 01:17 Pantoprazole Sodium (Protonix) 40 mg PO QAM [facility]LA Stop: 12/12/19 08:59 Last Admin: 11/12/19 08:25 Dose: 40 mg Documented by: Prednisone (Prednisone) 5 mg PO DAILY [facility] Stop: 12/12/19 08:59 Last Admin: 11/12/19 08:25 Dose: 5 mg Documented by: Raspberry (Raspberry) 5 ml PO DAILY [facility] Stop: 11/26/19 08:59 Last Admin: 11/12/19 08:25 Dose: 5 ml Documented by: Thiamine HCl (Vitamin B-1) 50 mg PO QA [facility] Stop: 12/12/19 08:59 Last Admin: 11/12/19 08:25 Dose: 50 mg Documented by: Vancomycin HCl (Vancomycin Hcl) 125 mg PO DAILY [facility]LA Stop: 11/26/19 08:59 Last Admin: 11/12/19 08:25 Dose: 125 mg Documented by:
--- NOTE | 2019-11-12 09:46 | History & Physical Report ---
Date of Service November 12, 2019 Assessment & Plan (1) Abnormal LFTs: 74 yo female with multiple medical problems admitted with syncope vs seizure. Noted to have elevated LFTs without any convincing evidence of acute biliary pathology. No evidence of ductal dilation on imaging. LFTS trending down with IVF hydration. She is currently being treated with vanco taper for recurrent C diff related to abx use. Would be cautious with use of abx unless certain of active infection. Etiology of the LFT elevation not clear at this point. OK to proceed with the MRCP ordered by the admitting service. Evaluation by neurology and work up for syncope pending. - Conservative mgt. - Follow LFTs. - Cautious use of abx without clear source of infection given the history of recurrent C diff. (2) Acute alteration in mental status: (3) Elevated troponin: History of Present Illness Chief Complaint: weakness; ?syncope vs seizure elevated LFTs Primary Care Provider: Leni Moyer, DO 74 yo female with multiple comorbidities including DM, CAD, HTN, COPD and RA as well as problems with recurrent C dificile following courses of antibiotics in August for pneumonia. She presented to the ER after an episode at home of ?syncope vs seizure witnessed by her . On arrival in the ER she was noted to be mildly hypotensive. Labs were significant for elevated troponin as well as sings of hemoconcentration. LFTs were noted to be abnormal with AST 417, ALT 561, AP 275 and TB 1.3. She was given IVF hydration and labs this AM show trend toward improvement with AST 266, ALT 399, AP 199 and TB 0.9. She did have some intermittent abdominal discomfort at home which was thought to be related to the C diff. She is on an oral vancomycin taper. CT in the ER did not show anything other than "questionable minimal inflammation adjacent to the gallbladder. No ductal dilation. A follow up US showed normal appearing gallbladder other than stones and normal CBD of 4mm. Feeling OK this AM. Allergies Allergy/AdvReac Type Severity Reaction Status Date / Time methotrexate Allergy Intermediate RASH/PNEUMO Verified 11/11/19 23:47 NITIS Penicillins Allergy Intermediate hives Verified 11/11/19 23:47 ranitidine Allergy Intermediate rash Verified 11/11/19 23:47 Insecticides Allergy Severe DIFFICULTY Uncoded 11/11/19 23:47 BREATHING; FULL BODY SWELLING Home Medications Home Medications Medication Instructions Recorded Confirmed Type aspirin [Aspir-81] 81 mg PO HS 07/20/18 11/12/19 History duloxetine 60 mg PO DAILY 07/20/18 11/12/19 History folic acid 1 mg PO QAM 07/20/18 11/12/19 History hydroxychloroquine 200 mg PO HS 07/20/18 11/12/19 History lisinopril 2.5 mg PO QAM 07/20/18 11/12/19 History metoprolol tartrate 25 mg PO BID 07/20/18 11/12/19 History montelukast 10 mg PO HS 07/20/18 11/12/19 History pantoprazole 40 mg PO QAM 07/20/18 11/12/19 History prednisone 5 - 10 mg PO QAM 07/20/18 11/12/19 History thiamine mononitrate (vit B1) 50 mg PO QAM 07/20/18 11/12/19 History Ocuvite with Lutein 1 tab PO QAM 03/07/19 11/12/19 History albuterol sulfate [ProAir HFA] 2 puff INHALATION Q4 PRN 03/07/19 11/12/19 History betamethasone dipropionate 1 applic TOPICAL DAILY PRN 03/07/19 11/12/19 History cholecalciferol (vitamin D3) 2,000 unit PO QAM 03/07/19 11/12/19 History [Vitamin D3] clindamycin HCl 600 mg PO UD PRN 03/07/19 11/12/19 History cyanocobalamin (vitamin B-12) 2,000 mcg PO [id number] 03/07/19 11/12/19 History [Vitamin B-12] fluticasone propionate [Flonase 2 spray INTRANASAL DAILY PRN 03/07/19 11/12/19 History Allergy Relief] latanoprost [Xalatan] 1 drp OPHTHALMIC (EYE) HS 03/07/19 11/12/19 History leflunomide [Arava] 10 mg PO QAM 03/07/19 11/12/19 History levalbuterol HCl [Xopenex] 1.25 mg INHALATION Q4 PRN 03/07/19 11/12/19 History nitroglycerin 0.4 mg SUBLINGUAL UD 03/07/19 11/12/19 History nystatin 1 applic TOPICAL TID PRN 03/07/19 11/12/19 History tramadol 50 mg PO BID PRN 03/07/19 11/12/19 History triamcinolone acetonide 1 applic TOPICAL BID PRN 03/07/19 11/12/19 History doxylamine-dextromethorphan [Vicks 30 ml PO Q6H PRN 11/12/19 11/12/19 History NyQuil Cough] fluticasone furoate-vilanterol 1 inh INHALATION DAILY 11/12/19 11/12/19 History [id number]-[id number]-FA-lutein 1 tab PO DAILY 11/12/19 11/12/19 History [Centrum Silver Women] rosuvastatin 10 mg PO DAILY 11/12/19 11/12/19 History vancomycin 125 mg PO DIRECTED 11/12/19 11/12/19 History Past Med/Surg History Medical History Asthma (Chronic) inhalers prn Chronic steroid use prednisone daily CKD (chronic kidney disease), stage III (Chronic) COPD (chronic obstructive pulmonary disease) (Chronic) inhalers prn Depression (Chronic) DJD of right shoulder DM type 2 (diabetes mellitus, type 2) (Chronic) Dyslipidemia (Chronic) Gastroparesis (Chronic) GERD (gastroesophageal reflux disease) (Chronic) Glaucoma (Chronic) Gout H/O interstitial lung disease (Chronic) "drug induced- methotrexate " Heart disease (Chronic) HTN (hypertension) (Chronic) Migraines (Chronic) NSTEMI (non-ST elevated myocardial infarction) (Acute 08/06/13) Osteoarthritis (Chronic) Peripheral neuropathy (Chronic) Rheumatoid arthritis (Chronic) "on chronic steroids" Surgical History H/O cardiac catheterization (Chronic) "cath 07/2013- single vessel CAD involving apical segment LAD, medical management indicated" H/O colonoscopy (Chronic) History of esophagogastroduodenoscopy (EGD) History of hysterectomy (Chronic) History of tooth extraction all top teeth S/P removal of ovarian cyst (Chronic) S/P rotator cuff repair (Chronic) "right shoulder" S/P total knee arthroplasty (Chronic) "left knee" Family History Father Family history of diabetes mellitus Other No family history of adverse response to anesthesia Social History Preferred Language: Ukrainian Communication Ability: Effective Manager Application Required: No Beliefs That Will Affect Care: None marital status: Current Living Situation: Spouse Feels Safe at Home: Yes Safety Concerns: Feels Safe At This Time Smoking Status: Never smoker Do You Dip or Chew Tobacco: No ; Second Hand Exposure: No ; Hx Alcohol Use: No Hx Substance Use: No Review of Systems 12 systems reviewed and negative except as noted Physical Exam Constitutional: WD/WN, vitals as above Eyes: PERRL, conjunctivae normal, anicteric sclerae Neck: trachea midline, no thyromegaly Respiratory: normal respiratory effort, lungs clear to auscultation Cardiovascular: RRR, no murmur, no edema Gastrointestinal (Abdomen): normal bowel sounds, soft, nontender, no hepatosplenomegaly Musculoskeletal: no cyanosis or clubbing, extremities motor strength 5/5 Neurologic: CN's II-XI intact bilaterally Results & Data Vital Signs (Past 12 Hours) Vital Signs Temp Pulse Pulse Resp BP Pulse Ox Pulse Ox 11/12/19 07:00 37.0 C 89 20 143/83 H 94 11/12/19 04:00 37.1 C 82 20 142/73 H 95 11/12/19 02:11 103 H 164/89 H 11/12/19 01:55 101 H 11/12/19 01:14 37 C 110 H 20 171/120 H 94 94 11/12/19 00:50 103 H 20 129/86 96 11/11/19 23:56 103 H 20 154/91 H 96 11/11/19 22:22 103 H 18 114/80 95 11/11/19 21:34 102 H 20 114/80 98
--- NOTE | 2019-11-12 10:06 | Surgery Consultation ---
Date of Consultation November 12, 2019 Assessment & Plan (1) Acute cholecystitis: pain resolved symptomatic cholelithiasis with possible CBD stone but unlikley GI medicine consult without plans for MRCP or ERCP If cleared by medicine will plan lap medhat in AM consent on chart will attempt IOC but not likely to have CBD stone History of Present Illness Attending Physician: Francisco J Phillip MD History of Present Illness This is a 74 year old female with a history of COPD, stage III CKD, type 2 diabetes, dyslipidemia, GERD, interstitial lung disease, gastroparesis, hypertension, NSTEMI, and cardiac catheterization who presented to the ED with intermittent abdominal pain with some nausea. She has been anorexic, A CT scan and ultrasound show gallstones and possible inflammation. Her pain has resolved. Her LFTs are elevated but more consistent with intrinsic liver issues and a normal CBD. The patient noteed that she has been having headaches but has not passed out and presented with a possible syncopal event. She reports that she has also not been eating much over the past 2 days. The patient has had diarrhea secondary to C diff for the past 2 months and is currently on an antibiotic. He adds that the patient fell while chasing her cat a few days ago and bruised her right knee but did not hit her head. He mentions that the patient was in the [facility] ICU for 6 weeks for a lung infection 2 months ago. Allergies Allergy/AdvReac Type Severity Reaction Status Date / Time methotrexate Allergy Intermediate RASH/PNEUMO Verified 11/11/19 23:47 NITIS Penicillins Allergy Intermediate hives Verified 11/11/19 23:47 ranitidine Allergy Intermediate rash Verified 11/11/19 23:47 Insecticides Allergy Severe DIFFICULTY Uncoded 11/11/19 23:47 BREATHING; FULL BODY SWELLING Home Medications Home Medications Medication Instructions Recorded Confirmed Type aspirin [Aspir-81] 81 mg PO HS 07/20/18 11/12/19 History duloxetine 60 mg PO DAILY 07/20/18 11/12/19 History folic acid 1 mg PO QAM 07/20/18 11/12/19 History hydroxychloroquine 200 mg PO HS 07/20/18 11/12/19 History lisinopril 2.5 mg PO QAM 07/20/18 11/12/19 History metoprolol tartrate 25 mg PO BID 07/20/18 11/12/19 History montelukast 10 mg PO HS 07/20/18 11/12/19 History pantoprazole 40 mg PO QAM 07/20/18 11/12/19 History prednisone 5 - 10 mg PO QAM 07/20/18 11/12/19 History thiamine mononitrate (vit B1) 50 mg PO QAM 07/20/18 11/12/19 History Ocuvite with Lutein 1 tab PO QAM 03/07/19 11/12/19 History albuterol sulfate [ProAir HFA] 2 puff INHALATION Q4 PRN 03/07/19 11/12/19 History betamethasone dipropionate 1 applic TOPICAL DAILY PRN 03/07/19 11/12/19 History cholecalciferol (vitamin D3) 2,000 unit PO QAM 03/07/19 11/12/19 History [Vitamin D3] clindamycin HCl 600 mg PO UD PRN 03/07/19 11/12/19 History cyanocobalamin (vitamin B-12) 2,000 mcg PO 3XWK 03/07/19 11/12/19 History [Vitamin B-12] fluticasone propionate [Flonase 2 spray INTRANASAL DAILY PRN 03/07/19 11/12/19 History Allergy Relief] latanoprost [Xalatan] 1 drp OPHTHALMIC (EYE) HS 03/07/19 11/12/19 History leflunomide [Arava] 10 mg PO QAM 03/07/19 11/12/19 History levalbuterol HCl [Xopenex] 1.25 mg INHALATION Q4 PRN 03/07/19 11/12/19 History nitroglycerin 0.4 mg SUBLINGUAL UD 03/07/19 11/12/19 History nystatin 1 applic TOPICAL TID PRN 03/07/19 11/12/19 History tramadol 50 mg PO BID PRN 03/07/19 11/12/19 History triamcinolone acetonide 1 applic TOPICAL BID PRN 03/07/19 11/12/19 History doxylamine-dextromethorphan [Vicks 30 ml PO Q6H PRN 11/12/19 11/12/19 History NyQuil Cough] fluticasone furoate-vilanterol 1 inh INHALATION DAILY 11/12/19 11/12/19 History hiegfuwg-beg-lkzw-FA-lutein 1 tab PO DAILY 11/12/19 11/12/19 History [Centrjefferson Silver Women] rosuvastatin 10 mg PO DAILY 11/12/19 11/12/19 History vancomycin 125 mg PO DIRECTED 11/12/19 11/12/19 History Patient History Medical History Asthma (Chronic) inhalers prn Chronic steroid use prednisone daily CKD (chronic kidney disease), stage III (Chronic) COPD (chronic obstructive pulmonary disease) (Chronic) inhalers prn Depression (Chronic) DJD of right shoulder DM type 2 (diabetes mellitus, type 2) (Chronic) Dyslipidemia (Chronic) Gastroparesis (Chronic) GERD (gastroesophageal reflux disease) (Chronic) Glaucoma (Chronic) Gout H/O interstitial lung disease (Chronic) "drug induced- methotrexate " Heart disease (Chronic) HTN (hypertension) (Chronic) Migraines (Chronic) NSTEMI (non-ST elevated myocardial infarction) (Acute 08/06/13) Osteoarthritis (Chronic) Peripheral neuropathy (Chronic) Rheumatoid arthritis (Chronic) "on chronic steroids" Surgical History H/O cardiac catheterization (Chronic) "cath 07/2013- single vessel CAD involving apical segment LAD, medical management indicated" H/O colonoscopy (Chronic) History of esophagogastroduodenoscopy (EGD) History of hysterectomy (Chronic) History of tooth extraction all top teeth S/P removal of ovarian cyst (Chronic) S/P rotator cuff repair (Chronic) "right shoulder" S/P total knee arthroplasty (Chronic) "left knee" Family History Father Family history of diabetes mellitus Other No family history of adverse response to anesthesia Social History Preferred Language: Sami Communication Ability: Effective Media Account Executive Required: No Beliefs That Will Affect Care: None marital status: Current Living Situation: Spouse Feels Safe at Home: Yes Safety Concerns: Feels Safe At This Time Smoking Status: Never smoker Do You Dip or Chew Tobacco: No ; Second Hand Exposure: No ; Hx Alcohol Use: No Hx Substance Use: No Review of Systems Constitutional: + weakness and + anorexia; no fever and no chills Respiratory: no cough and no dyspnea Cardiovascular: no chest pain and no chest pain at rest Gastrointestinal: + abdominal pain, + nausea and + diarrhea/loose stools; no vomiting, no pain with swallowing and no dysphagia Genitourinary: no dysuria Musculoskeletal: + back pain; no neck pain and no joint pain Neurologic: + generalized weakness; no localized weakness Psychiatric: no behavioral changes Physical Exam Constitutional: WD/WN, vitals as above Eyes: + anicteric sclerae Neck: trachea midline Respiratory: normal respiratory effort, lungs clear to auscultation Cardiovascular: RRR, no murmur, no edema Gastrointestinal (Abdomen): Inspection/Auscultation: abdomen normal to inspection and normal bowel sounds; abdomen not distended Percussion/Palpation: + abdomen tender and abdomen soft; no guarding and abdomen not rigid Musculoskeletal: Head/Neck/Chest: + head abnormal to inspection and normocephalic Skin: no rashes, warm and dry no jaundice Psychiatric: Orientation: alert and oriented x 3 Lymphatic: no lymphadenopathy Results & Data Vital Signs (Past 12 Hours) Vital Signs Temp Pulse Pulse Resp BP Pulse Ox Pulse Ox 11/12/19 07:00 37.0 C 89 20 143/83 H 94 11/12/19 04:00 37.1 C 82 20 142/73 H 95 11/12/19 02:11 103 H 164/89 H 11/12/19 01:55 101 H 11/12/19 01:14 37 C 110 H 20 171/120 H 94 94 11/12/19 00:50 103 H 20 129/86 96 11/11/19 23:56 103 H 20 154/91 H 96 11/11/19 22:22 103 H 18 114/80 95 Diagnostic Findings BDOMEN AND PELVIS CT WITHOUT CONTRAST CT DOSE: 360.07 mGy.cm HISTORY: abn lft's, recent c.diff, generalized abdominal pain TECHNIQUE: Multiaxial CT images of the abdomen and pelvis were performed without contrast. A dose lowering technique was utilized adhering to the principles of ALARA. COMPARISON STUDY: Abdomen and pelvis CT 07/20/2018. FINDINGS: Punctate calcified granuloma within the right lower lobe posteriorly. The left lung base is clear. No pneumoperitoneum. No pneumatosis. No suspicious lytic or blastic osseous lesions. Advanced degenerative disc disease within the lower lumbar spine is again noted. Small hiatus hernia. The unenhanced liver, spleen, adrenal glands, pancreas, and right kidney are unremarkable. There is a punctate stone within the left kidney. No ureteral stones. No hydronephrosis. No retroperitoneal lymphadenopathy. Multiple small gallstones are identified. Qu estionable minimal inflammatory change adjacent to the gallbladder. There are 2 stable hypodense lesions within the left kidney with the largest in the lower pole measuring 4.6 cm. These are incompletely characterized on this noncontrast study but statistically represent cysts. The bladder is decompressed but appears unremarkable. The uterus is surgically absent. Bilateral adnexa are within normal limits. No pelvic free fluid. Suboptimal evaluation for bowel pathology due to the lack of intravenous and oral contrast. However, there is no definite bowel wall thickening or obstruction. Colonic diverticulosis. No CT evidence for diverticulitis. Normal appendix. IMPRESSION: 1. Questionable minimal inflammatory change adjacent to the gallbladder. Consider follow-up ultrasound the patient is complaining of right upper quadrant pain and to exclude the possibility of acute cholecystitis. 2. Colonic diverticulosis. No evidence for diverticulitis. 3. Normal appendix. 4. Left-sided nephrolithiasis. No ureteral stones. No hydronephrosis. 5. No definite bowel wall thickening or obstruction. ABDOMINAL ULTRASOUND, RIGHT UPPER QUADRANT HISTORY: Generalized abdominal pain. Abnormal ct, abn lft's. COMPARISON: Abdomen and pelvis CT 11/11/2019. FINDINGS: Pancreas: Obscured by overlying bowel gas. Liver: Unremarkable. Gallbladder: A few small gallstones. No gallbladder wall thickening. Negative sonographic Baker sign. CBD: 4 mm. Right kidney: No hydronephrosis. IMPRESSION: Cholelithiasis. No gallbladder wall thickening.
[2019-11-12 10:48] LABS: Appearance Urine Cloudy (Clear); Bacteria Urine Automated Negative (Negative); Blood Urine Negative (Negative); Color Urine Dark Yellow; Epithelial Cell Urine Auto >30 /lpf (0-5); Glucose Urine UA Negative (Negative); Ketones Urine Trace (Negative); Leukocyte Esterase Urine 1+ (Negative); Nitrite Urine Negative (Negative); Protein Urine 2+ (Negative); Urobilinogen Urine Negative (Negative); WBC Urine Automated >30 /hpf (0-5)
[2019-11-12 10:52] LABS: Bilirubin Urine 1+ (Negative)
[2019-11-12 10:53] LABS: Ictotest Urine Positive (Negative)
[2019-11-12 11:06] LABS: Cast Urine Automated >30 /lpf (0-5)
[2019-11-12 11:07] LABS: Amorphous Sediment Urine Present (None Prsent)
--- NOTE | 2019-11-12 11:49 | Communication Note ---
Date of Service: November 12, 2019 I have seen Mrs. Rodriguez today examined her, reviewed the history with her and reviewed the admission note and progress notes along with laboratory studies and imaging studies which to date include only a noncontrast CT of the head. 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 She also has evidence for polyneuropathy which is well known and well established EEG shows mild generalized slowing and I think most of this was done during drowsiness but there is certainly no evidence for focal encephalopathy or potentially epileptogenic activity At this point this is a syncopal event with some brief convulsive movements secondary to cerebral hypoperfusion and I see nothing to indicate the presence of a significant underlying structural disorder or a primary epileptiform disorder and would not treat this with anticonvulsants An MRI is pending just to be on the safe side to be certain there was not an embolic shower or other primary cerebral event that might have produced this syndrome but frankly I doubt that we can see anything other than some chronic white matter changes An official consultation has been dictated and will be signed later And lesser other findings on the pending MRI or patient has a clinical change in status neurology is going to sign off at this point Sathish Snow MD
--- NOTE | 2019-11-12 11:54 | Electroencephalogram ---
EEG Procedure Note Date of Service November 12, 2019 Start / End Times Start Time: 1044 End Time: 1104 Referring Physician Sathish Snow MD History Syncope versus seizure Home Medication List Home Medications Medication Instructions Recorded Confirmed Type aspirin [Aspir-81] 81 mg PO HS 07/20/18 11/12/19 History duloxetine 60 mg PO DAILY 07/20/18 11/12/19 History folic acid 1 mg PO QAM 07/20/18 11/12/19 History hydroxychloroquine 200 mg PO HS 07/20/18 11/12/19 History lisinopril 2.5 mg PO QAM 07/20/18 11/12/19 History metoprolol tartrate 25 mg PO BID 07/20/18 11/12/19 History montelukast 10 mg PO HS 07/20/18 11/12/19 History pantoprazole 40 mg PO QAM 07/20/18 11/12/19 History prednisone 5 - 10 mg PO QAM 07/20/18 11/12/19 History thiamine mononitrate (vit B1) 50 mg PO QAM 07/20/18 11/12/19 History Ocuvite with Lutein 1 tab PO QAM 03/07/19 11/12/19 History albuterol sulfate [ProAir HFA] 2 puff INHALATION Q4 PRN 03/07/19 11/12/19 History betamethasone dipropionate 1 applic TOPICAL DAILY PRN 03/07/19 11/12/19 History cholecalciferol (vitamin D3) 2,000 unit PO QAM 03/07/19 11/12/19 History [Vitamin D3] clindamycin HCl 600 mg PO UD PRN 03/07/19 11/12/19 History cyanocobalamin (vitamin B-12) 2,000 mcg PO 3XWK 03/07/19 11/12/19 History [Vitamin B-12] fluticasone propionate [Flonase 2 spray INTRANASAL DAILY PRN 03/07/19 11/12/19 History Allergy Relief] latanoprost [Xalatan] 1 drp OPHTHALMIC (EYE) HS 03/07/19 11/12/19 History leflunomide [Arava] 10 mg PO QAM 03/07/19 11/12/19 History levalbuterol HCl [Xopenex] 1.25 mg INHALATION Q4 PRN 03/07/19 11/12/19 History nitroglycerin 0.4 mg SUBLINGUAL UD 03/07/19 11/12/19 History nystatin 1 applic TOPICAL TID PRN 03/07/19 11/12/19 History tramadol 50 mg PO BID PRN 03/07/19 11/12/19 History triamcinolone acetonide 1 applic TOPICAL BID PRN 03/07/19 11/12/19 History doxylamine-dextromethorphan [Vicks 30 ml PO Q6H PRN 11/12/19 11/12/19 History NyQuil Cough] fluticasone furoate-vilanterol 1 inh INHALATION DAILY 11/12/19 11/12/19 History sfqihvsr-rye-bwje-FA-lutein 1 tab PO DAILY 11/12/19 11/12/19 History [Centrum Silver Women] rosuvastatin 10 mg PO DAILY 11/12/19 11/12/19 History vancomycin 125 mg PO DIRECTED 11/12/19 11/12/19 History Inpatient Medication List Duloxetine HCl (Cymbalta) 60 mg PO DAILY [facility] Stop: 12/12/19 08:59 Last Admin: 11/12/19 08:25 Dose: 60 mg Documented by: [id number] Folic Acid (Folvite) 1 mg PO QAM [facility] Stop: 12/12/19 08:59 Last Admin: 11/12/19 08:25 Dose: 1 mg Documented by: [id number] Potassium Chloride/Sodium Chloride (Normal Saline W/20 Meq Kcl) 20 meq in 1,000 mls @ 75 mls/hr IV .[id number] [facility] Stop: 12/12/19 01:17 Last Admin: 11/12/19 02:09 Dose: 75 mls/hr Documented by: [id number] Insulin Aspart (Novolog Flexpen) 0 units SC Q6 [facility] Stop: 12/12/19 04:24 Last Admin: 11/12/19 08:18 Dose: Not Given Documented by: [id number] Cosigned by: [id number] Admin: 11/12/19 05:17 Dose: Not Given Documented by: [id number] Cosigned by: [id number] Metoprolol Tartrate (Lopressor) 25 mg PO BID [facility] Stop: 12/12/19 08:59 Last Admin: 11/12/19 08:25 Dose: 25 mg Documented by: [id number] Multivitamins/Minerals (Multivitamin W/ Minerals Tab) 1 tab PO QAM [facility] Stop: 12/12/19 08:59 Last Admin: 11/12/19 08:25 Dose: 1 tab Documented by: [id number] Pantoprazole Sodium (Protonix) 40 mg PO QAM [facility] Stop: 12/12/19 08:59 Last Admin: 11/12/19 08:25 Dose: 40 mg Documented by: [id number] Prednisone (Prednisone) 5 mg PO DAILY [facility] Stop: 12/12/19 08:59 Last Admin: 11/12/19 08:25 Dose: 5 mg Documented by: [id number] Raspberry (Raspberry) 5 ml PO DAILY [facility] Stop: 11/26/19 08:59 Last Admin: 11/12/19 08:25 Dose: 5 ml Documented by: [id number] Thiamine HCl (Vitamin B-1) 50 mg PO QAM [facility] Stop: 12/12/19 08:59 Last Admin: 11/12/19 08:25 Dose: 50 mg Documented by: [id number] Vancomycin HCl (Vancomycin Hcl) 125 mg PO DAILY [facility] Stop: 11/26/19 08:59 Last Admin: 11/12/19 08:25 Dose: 125 mg Documented by: [id number] Discontinued Medications Sodium Chloride (Nss 1000ml) 1,000 mls @ 250 mls/hr IV .Q4H [facility] Stop: 12/11/19 18:44 Last Admin: 11/12/19 02:12 Dose: Not Given Documented by: [id number] Infusion: 11/11/19 23:21 Dose: 0 mls/hr Documented by: [id number] Admin: 11/11/19 18:52 Dose: 250 mls/hr Documented by: [id number] Sodium Chloride (Nss 1000ml) 1,000 mls @ 250 mls/hr IV .Q4H [facility] Stop: 12/11/19 22:29 Last Infusion: 11/12/19 02:10 Dose: 0 mls/hr Documented by: [id number] Admin: 11/11/19 23:22 Dose: 250 mls/hr Documented by: [id number] Ertapenem (Invanz) 10 mls @ 2 mls/min IV NOW STA Stop: 11/12/19 00:00 Last Admin: 11/12/19 00:25 Dose: 2 mls/min Documented by: [id number] Insulin Glargine (Lantus Solostar Pen) 5 units SC NOW STA Stop: 11/12/19 04:24 Last Admin: 11/12/19 05:18 Dose: 5 units Documented by: [id number] Cosigned by: [id number] Metoprolol Tartrate (Lopressor) 2.5 mg IV NOW STA Stop: 11/12/19 02:35 Last Admin: 11/12/19 03:36 Dose: 2.5 mg Documented by: [id number] Description This is a 21 electrode EEG with a single channel dedicated to limited EKG. The electrodes were placed in accordance with the International 10-20 system. This EEG was done as a bedside recording with simultaneous video analysis of patient movement and behavior. No activation procedures were utilized. Clinically the patient appeared to be somewhat drowsy during the initial phases of the recording and then began to be more awake and alert as the tracing progressed During the initial phases there is evidence for mild slowing of the background alpha rhythm into the theta range at about 7 to 8 Hz and maximum frequency and 30 V maximum amplitude and there is a slight increase in the amount of slightly slower theta activity over the central regions without any change in the frontal beta pattern. None of the changes appear to have any focal predominance and no potentially epileptogenic activity is seen As the tracing proceeds the background alpha rhythm begins to emerge although never gets much more than 9 Hz and often hovers between 8 and 9 Hz but remains symmetrical in the posterior head regions and the central theta activity shifts into a slightly higher frequency suggesting that the initial phase of the tracing were indeed recorded during mild drowsiness Interpretation This EEG is at most mildly slow during what appears to be a transition between drowsiness and wakefulness and is at most revealing of a nonspecific generalized encephalopathy but there are no epileptogenic features Clinical Correlation This is at most a minimally abnormal EEG during the transition between wakefulness and drowsiness and is probably normal but because of the lack of a sustained background alpha rhythm has to be called mildly abnormal and consistent with a nonspecific generalized encephalopathy without focal features and without potentially epileptogenic activity. There is specifically no evidence to suggest a primary seizure disorder Sathish Snow MD
--- NOTE | 2019-11-12 12:25 | Electrocardiogram Report ---
Test Reason : Blood Pressure : / mmHG Vent. Rate : 116 BPM Atrial Rate : 116 BPM P-R Int : 158 ms QRS Dur : 110 ms QT Int : 320 ms P-R-T Axes : -26 110 254 degrees QTc Int : 444 ms Sinus tachycardia Right bundle branch block Left posterior fascicular block Bifascicular block T wave abnormality, consider lateral ischemia Abnormal ECG When compared with ECG of 23-JUL-2018 07:41, Premature atrial complexes are no longer Present Inverted T waves have replaced nonspecific T wave abnormality in Inferior leads Confirmed by Jair Toro ([id number]) on 11/12/2019 12:25:04 PM Referred By: REFERRED SELF Confirmed By:Jair Toro
--- NOTE | 2019-11-12 13:00 | Consultation Report ---
DATE OF CONSULTATION: 11/12/2019 CONSULTATION FOR: Francisco J Phillip MD HISTORY OF PRESENT ILLNESS: Belem is 74 years old, is a patient of Dr. Leni Tinsley and has multiple medical problems that are outlined on the present chart and will be listed below, Basically in the setting of recent gastroenterologic issues with nausea, vomiting, anorexia, poor caloric intake, she arose from bed yesterday, walked towards the living room, her saw her, noted that she was pale and she began to shake, fell to the floor or slumped over a chair, but did not harm herself and then promptly awakened after about a minute and was back to nearly her baseline. She recalls getting up out of bed, walking to the living room, but after that is amnestic for the event, but then has a recall of all events that subsequently transpired including the trip to our Emergency Room and subsequent admission. The question has been raised about whether this was a seizure or a syncopal event and frankly upon review of the history, the imaging studies, and the EEG which is normal, I think this was probably a hypotensive event with convulsive syncope and not a seizure disorder. PAST MEDICAL HISTORY: Quite complicated. She has diabetes mellitus, coronary artery disease, hypertension, COPD, rheumatoid arthritis and was actually hospitalized in [place] for 6 weeks for respiratory infection and now has recurrent C. difficile issues with a return of solid stool only recently and then she has had some associated nausea, vomiting, anorexia and poor caloric intake culminating in the syncopal event that prompted admission. Upon arrival here, she was mildly hypotensive. Her labs showed elevated troponin as well as signs of hemoconcentration. Liver functions were abnormal. She was given IV hydration and apparently laboratory studies are showing a downward trend particularly of the transaminases. She has had abdominal discomfort and this was felt to be related to C. diff, but on our CT scan, there is a questionable inflammation adjacent to the gallbladder without ductal dilatation and surgery has seen her and has apparently simply going to observe things at this point in time. ALLERGIES: SHE HAS ALLERGIES TO METHOTREXATE, PENICILLINS, RANITIDINE AND INSECTICIDES. HOME MEDICATIONS: Include aspirin, duloxetine, folic acid, hydroxychloroquine, lisinopril, metoprolol, Singulair, pantoprazole, prednisone, thiamine, Ocuvite, albuterol, betamethasone, cholecalciferol, clindamycin, vitamin B12, fluticasone, Xalatan, Arava, Xopenex, nitroglycerin as needed, nystatin, tramadol, triamcinolone, Nyquil, fluticasone, multivitamins, Centrum, rosuvastatin, and vancomycin. 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 PAST SURGICAL HISTORY: She has had cardiac catheterizations, colonoscopies, esophagogastroduodenoscopy, hysterectomy, has had dental extractions, had ovarian cyst removal in the past, rotator cuff surgery and a total knee replacement on the right. FAMILY HISTORY: Diabetes and otherwise this is pretty much noncontributory. SOCIAL HISTORY: Reveals her to be . She speaks Thai. She is a nonsmoker, minimal consumer of ethanol. REVIEW OF SYSTEMS: Reveals a lot of weight loss, anorexia, nausea, vomiting. The hospitalizations and active medical problems as noted above, but there has been no specific new complaints referable to head, eyes, ears, nose and throat, cardiovascular, pulmonary, gastrointestinal, genitourinary, musculoskeletal, dermatologic or hematologic systems. Neurologically, her migraines have been quiescent. Her neuropathy is an annoyance and is responsible for her gait disturbance and she has had the single syncopal episode as described above, but no history for similar events in the past. PHYSICAL EXAMINATION: VITAL SIGNS: Her blood pressure was 143/83 after hydration, pulse was 89, respirations were 20. GENERAL: She was alert, cooperative, oriented in 3 spheres, but appeared chronically ill and somewhat cachectic. HEAD, EYES, EARS, NOSE AND THROAT EXAMINATION: Normal. NECK: Supple. No carotid bruits were heard. Thyroid was normal size and consistency. LUNGS: Clear. HEART: Had a regular rhythm without murmurs. ABDOMEN: Soft and nontender. EXTREMITIES: There was a mild degree of generalized wasting of soft tissues. Pulses were present. NEUROLOGIC: Today, neurologically she is awake, alert, oriented in 3 spheres, an excellent historian with a left upper motor neuron facial asymmetry, likely of longstanding type and nondysarthric speech with normal visual jauregui, normal gross visual acuity, and with normal facial sensation. Neck flexor strength is normal. There is no real drift or pronation of the upper extremities, although the right shoulder is quite painful and has a pseudodrift. Facility of rapid repetitive motions is normal. Reflexes are absent at the ankles and knees, normal in the upper extremities. Toes are downgoing. No Lenard signs are seen. Strength testing is normal, allowing for her somewhat wasted state and sensory examination reveals reduced proprioception, vibration, temperature and pinprick up to about the mid calves. In reviewing her studies. I do note the presence of a leukoencephalopathy on CT scan, and an MRI apparently is pending, so we will be able to know if there was any recent cerebrovascular events or an acute event that may have been associated with the syncopal event, but frankly I doubt we are going to find a structural problem. EEG is normal. At this point as noted above, I think this was orthostatic syncope related to volume depletion and mediated through hypotension and do not think this was a seizure disorder nor do I think we are going to find any significant new structural disease involving the nervous system other than a chronic leukoencephalopathy. Neurology will tentatively sign off the case, but I will review the results of imaging studies and write an intermittent progress note once I have them on my computer screen at home and can review them personally. BEST
--- NOTE | 2019-11-12 14:06 | Cardiology Consultation ---
Date of Consultation November 12, 2019 Assessment & Plan (1) Syncope: Given the clinical presentation I believe this represents an orthostatic event. There are no significant arrhythmias on monitor and no significant structural abnormalities on echocardiogram. Recommend continued volume expansion with IV fluids. (2) Elevated troponin: Chronically elevated with known small vessel coronary artery disease. Significantly volume depleted with transaminitis and acute renal failure No significant wall motion measures on echocardiogram I do not believe this represents an acute ischemic event. No further work-up necessary at this time. (3) CAD (coronary artery disease): Known chronic small vessel disease (4) Preop cardiovascular exam: The patient was counseled on place her as a moderate risk for any adverse perioperative cardiovascular event with her wrist being approximately less than 5%. She was further counseled that no further cardiac testing or intervention would further lower this risk. The patient states that she understands, she is accepting of this risk and wishes to proceed with any surgeries that may be deemed necessary. No need to delay from a cardiac standpoint. (5) Acute renal failure: Receiving IV fluids History of Present Illness Reason for Consultation: elevated troponin level Requesting Physician: Dr. Phillip Attending Physician: Francisco J Phillip MD History of Present Illness It was my pleasure to see Mrs. Rodriguez in consultation today November 12, 2019. As you know she is a very pleasant 74-year-old woman who previously follows with Dr. Goyo Quintero of our cardiology practice. She presented to [facility] after a reported witnessed syncopal event. Patient states that she was not feeling very well when she got out of bed and started walking across the floor. She got to a table and suddenly became very lightheaded and felt as though the blood was rushing out of her head. She then fell to the ground and believes she lost consciousness for a few seconds. Luckily she was not injured and her reportedly saw the event. EMS was summoned and she was brought in the emergency room where she was found to be mildly hypotensive. Blood work was drawn and she was found to have significant transaminitis and she was started on IV fluids. During admission interview the patient states that she is been having chest pain. She states that approximately 3 days ago she was chasing her cat down a hill when she fell and was unable to walk back up the hill. She did crawl on all fours up the hill which was very strenuous for her. She states that ever since then she is been having chest pain on her left sternal border is very tender to the touch. She describes it as sharp and stabbing in nature and denies any associated shortness of breath, diaphoresis, nausea, lightheadedness, dizziness or syncope. She states his pain is very similar to the pain she had prior to undergoing a cardiac catheterization several years ago. Currently she is resting comfortably. Past medical history as per most recent outpatient cardiology visit: 1. Small vessel coronary atherosclerosis by cardiac catheterization 2012 2. Chronic obstructive lung disease with respiratory failure fall 2017 3. Diabetes mellitus with diabetic nephropathy 4. Rheumatoid arthritis on variable dosing prednisone 5. Right bundle branch block, left posterior fascicular block Allergies Allergy/AdvReac Type Severity Reaction Status Date / Time methotrexate Allergy Intermediate RASH/PNEUMO Verified 11/11/19 23:47 NITIS Penicillins Allergy Intermediate hives Verified 11/11/19 23:47 ranitidine Allergy Intermediate rash Verified 11/11/19 23:47 Insecticides Allergy Severe DIFFICULTY Uncoded 11/11/19 23:47 BREATHING; FULL BODY SWELLING Home Medications Home Medications Medication Instructions Recorded Confirmed Type aspirin [Aspir-81] 81 mg PO HS 07/20/18 11/12/19 History duloxetine 60 mg PO DAILY 07/20/18 11/12/19 History folic acid 1 mg PO QAM 07/20/18 11/12/19 History hydroxychloroquine 200 mg PO HS 07/20/18 11/12/19 History lisinopril 2.5 mg PO QAM 07/20/18 11/12/19 History metoprolol tartrate 25 mg PO BID 07/20/18 11/12/19 History montelukast 10 mg PO HS 07/20/18 11/12/19 History pantoprazole 40 mg PO QAM 07/20/18 11/12/19 History prednisone 5 - 10 mg PO QAM 07/20/18 11/12/19 History thiamine mononitrate (vit B1) 50 mg PO QAM 07/20/18 11/12/19 History Ocuvite with Lutein 1 tab PO QAM 03/07/19 11/12/19 History albuterol sulfate [ProAir HFA] 2 puff INHALATION Q4 PRN 03/07/19 11/12/19 History betamethasone dipropionate 1 applic TOPICAL DAILY PRN 03/07/19 11/12/19 History cholecalciferol (vitamin D3) 2,000 unit PO QAM 03/07/19 11/12/19 History [Vitamin D3] clindamycin HCl 600 mg PO UD PRN 03/07/19 11/12/19 History cyanocobalamin (vitamin B-12) 2,000 mcg PO 3XWK 03/07/19 11/12/19 History [Vitamin B-12] fluticasone propionate [Flonase 2 spray INTRANASAL DAILY PRN 03/07/19 11/12/19 History Allergy Relief] latanoprost [Xalatan] 1 drp OPHTHALMIC (EYE) HS 03/07/19 11/12/19 History leflunomide [Arava] 10 mg PO QAM 03/07/19 11/12/19 History levalbuterol HCl [Xopenex] 1.25 mg INHALATION Q4 PRN 03/07/19 11/12/19 History nitroglycerin 0.4 mg SUBLINGUAL UD 03/07/19 11/12/19 History nystatin 1 applic TOPICAL TID PRN 03/07/19 11/12/19 History tramadol 50 mg PO BID PRN 03/07/19 11/12/19 History triamcinolone acetonide 1 applic TOPICAL BID PRN 03/07/19 11/12/19 History doxylamine-dextromethorphan [Vicks 30 ml PO Q6H PRN 11/12/19 11/12/19 History NyQuil Cough] fluticasone furoate-vilanterol 1 inh INHALATION DAILY 11/12/19 11/12/19 History [id number]-FA-lutein 1 tab PO DAILY 11/12/19 11/12/19 History [Centrum Silver Women] rosuvastatin 10 mg PO DAILY 11/12/19 11/12/19 History vancomycin 125 mg PO DIRECTED 11/12/19 11/12/19 History Patient History Medical History Asthma (Chronic) inhalers prn Chronic steroid use prednisone daily CKD (chronic kidney disease), stage III (Chronic) COPD (chronic obstructive pulmonary disease) (Chronic) inhalers prn Depression (Chronic) DJD of right shoulder DM type 2 (diabetes mellitus, type 2) (Chronic) Dyslipidemia (Chronic) Gastroparesis (Chronic) GERD (gastroesophageal reflux disease) (Chronic) Glaucoma (Chronic) Gout H/O interstitial lung disease (Chronic) "drug induced- methotrexate " Heart disease (Chronic) HTN (hypertension) (Chronic) Migraines (Chronic) NSTEMI (non-ST elevated myocardial infarction) (Acute 08/06/13) Osteoarthritis (Chronic) Peripheral neuropathy (Chronic) Rheumatoid arthritis (Chronic) "on chronic steroids" Surgical History H/O cardiac catheterization (Chronic) "cath 07/2013- single vessel CAD involving apical segment LAD, medical management indicated" H/O colonoscopy (Chronic) History of esophagogastroduodenoscopy (EGD) History of hysterectomy (Chronic) History of tooth extraction all top teeth S/P removal of ovarian cyst (Chronic) S/P rotator cuff repair (Chronic) "right shoulder" S/P total knee arthroplasty (Chronic) "left knee" Family History Father Family history of diabetes mellitus Other No family history of adverse response to anesthesia Social History Preferred Language: Danish Communication Ability: Effective [place] Required: No Beliefs That Will Affect Care: None marital status: Current Living Situation: Spouse Feels Safe at Home: Yes Safety Concerns: Feels Safe At This Time Smoking Status: Never smoker Do You Dip or Chew Tobacco: No ; Second Hand Exposure: No ; Hx Alcohol Use: No Hx Substance Use: No Review of Systems Review of Systems: All systems reviewed & are unremarkable except as noted in HPI & below Physical Exam Physical Exam: General: Awake, alert and oriented x 3. No acute distress. HEENT: Normocephalic, atraumatic. Pupils equal, round and reactive to light and accommodation. Extraocular muscles are intact. Anicteric sclera. Moist mucous membranes. Neck: No JVD. No bruit. Cardiovascular: Regular. Positive S-4. Normal S-1 and S-2. No S-3. 3/6 mid to late systolic ejection murmur, greatest at the right sternal border, second intercostal space with radiation to the bilateral carotids. No rubs. Pulmonary: Clear to auscultation bilaterally. No rales, rhonchi, or wheezing. Abdomen: Bowel sounds x 4, soft. No rebound, guarding or tenderness. No organomegaly. Extremities: No clubbing, cyanosis or edema. +2 pedal pulses bilaterally. Skin: Warm and dry. Results & Data ([facility]) Vital Signs (Past 12 Hours) Vital Signs Temp Pulse Resp BP Pulse Ox 11/12/19 07:00 37.0 C 89 20 143/83 H 94 11/12/19 04:00 37.1 C 82 20 142/73 H 95 11/12/19 02:11 103 H 164/89 H Laboratory Results Laboratory Results - last 24 hr 11/11/19 11/11/19 11/11/19 18:30 18:30 23:24 WBC 10.05 RBC 5.36 Hgb 16.7 H Hct 47.3 H MCV 88.2 MCH 31.2 MCHC 35.3 RDW Std Deviation 47.3 H RDW Coeff of Xochitl 14.7 H Plt Count 187 MPV 11.3 H Immature Gran % (Auto) 0.2 Neut % (Auto) 67.4 Lymph % (Auto) 20.4 Cass % (Auto) 11.4 Eos % (Auto) 0.4 Baso % (Auto) 0.2 Immature Gran # (Auto) 0.02 Neut # (Auto) 6.77 H Lymph # (Auto) 2.05 Cass # (Auto) 1.15 H Eos # (Auto) 0.04 Baso # (Auto) 0.02 APTT PTT Ratio Sodium 133 L Potassium 3.7 Chloride 93 L Carbon Dioxide 25 Anion Gap 15.0 H BUN 27 H Creatinine 1.71 H Est Cr Clr Drug Dosing 23.3 Est GFR ( Amer) 34.1 Est GFR (Non-Af Amer) 29.4 BUN/Creatinine Ratio 15.6 Glucose 203 H POC Glucose Estimat Average Glucose Hemoglobin A1c Calcium 10.3 H Phosphorus 4.5 Magnesium 1.9 Total Bilirubin 1.3 H AST 417 H ALT 561 H Alkaline Phosphatase 275 H Ammonia Troponin I 0.133 H* Total Protein 7.7 Albumin 3.8 Globulin 3.9 Albumin/Globulin Ratio 1.0 Lipase 211 TSH 2.040 Urine Color Urine Appearance Urine pH Ur Specific [place] Urine Protein Urine Glucose (UA) Urine Ketones Urine Blood Urine Nitrite Urine Bilirubin Urine Urobilinogen Ur Leukocyte Esterase Urine WBC (Auto) Urine RBC (Auto) U Hyaline Cast (Auto) U Epithel Cells (Auto) Urine Bacteria (Auto) Amorphous Sediment 11/12/19 11/12/19 11/12/19 05:05 05:35 05:35 WBC 7.21 RBC 4.53 Hgb 13.9 Hct 40.3 MCV 89.0 MCH 30.7 MCHC 34.5 RDW Std Deviation 47.8 H RDW Coeff of Xochitl 14.7 H Plt Count 136 MPV 10.1 Immature Gran % (Auto) 0.1 Neut % (Auto) 56.2 Lymph % (Auto) 30.9 Cass % (Auto) 11.7 Eos % (Auto) 0.7 Baso % (Auto) 0.4 Immature Gran # (Auto) 0.01 Neut # (Auto) 4.05 Lymph # (Auto) 2.23 Cass # (Auto) 0.84 H Eos # (Auto) 0.05 Baso # (Auto) 0.03 APTT PTT Ratio Sodium 137 Potassium 3.8 Chloride 102 Carbon Dioxide 27 Anion Gap 8.0 BUN 26 H Creatinine 1.23 H D Est Cr Clr Drug Dosing 32.9 Est GFR ( Amer) 50.7 Est GFR (Non-Af Amer) 43.8 BUN/Creatinine Ratio 21.3 H Glucose 112 H POC Glucose 123 H Estimat Average Glucose Hemoglobin A1c Calcium 9.0 Phosphorus Magnesium Total Bilirubin 0.9 AST 266 H ALT 399 H Alkaline Phosphatase 199 H Ammonia Troponin I 0.128 H* Total Protein 6.3 L Albumin 3.2 L Globulin 3.1 Albumin/Globulin Ratio 1.0 Lipase TSH Urine Color Urine Appearance Urine pH Ur Specific [place] Urine Protein Urine Glucose (UA) Urine Ketones Urine Blood Urine Nitrite Urine Bilirubin Urine Urobilinogen Ur Leukocyte Esterase Urine WBC (Auto) Urine RBC (Auto) U Hyaline Cast (Auto) U Epithel Cells (Auto) Urine Bacteria (Auto) Amorphous Sediment 11/12/19 11/12/19 11/12/19 05:35 05:35 05:35 WBC RBC Hgb Hct MCV MCH MCHC RDW Std Deviation RDW Coeff of Xochitl Plt Count MPV Immature Gran % (Auto) Neut % (Auto) Lymph % (Auto) Cass % (Auto) Eos % (Auto) Baso % (Auto) Immature Gran # (Auto) Neut # (Auto) Lymph # (Auto) Cass # (Auto) Eos # (Auto) Baso # (Auto) APTT 23.4 PTT Ratio 0.9 Sodium Potassium Chloride Carbon Dioxide Anion Gap BUN Creatinine Est Cr Clr Drug Dosing Est GFR ( Amer) Est GFR (Non-Af Amer) BUN/Creatinine Ratio Glucose POC Glucose Estimat Average Glucose 128 Hemoglobin A1c 6.1 H Calcium Phosphorus Magnesium Total Bilirubin AST ALT Alkaline Phosphatase Ammonia 15.0 Troponin I Total Protein Albumin Globulin Albumin/Globulin Ratio Lipase TSH Urine Color Urine Appearance Urine pH Ur Specific [place] Urine Protein Urine Glucose (UA) Urine Ketones Urine Blood Urine Nitrite Urine Bilirubin Urine Urobilinogen Ur Leukocyte Esterase Urine WBC (Auto) Urine RBC (Auto) U Hyaline Cast (Auto) U Epithel Cells (Auto) Urine Bacteria (Auto) Amorphous Sediment 11/12/19 11/12/19 11/12/19 07:54 10:30 11:46 WBC RBC Hgb Hct MCV MCH MCHC RDW Std Deviation RDW Coeff of Xochitl Plt Count MPV Immature Gran % (Auto) Neut % (Auto) Lymph % (Auto) Cass % (Auto) Eos % (Auto) Baso % (Auto) Immature Gran # (Auto) Neut # (Auto) Lymph # (Auto) Cass # (Auto) Eos # (Auto) Baso # (Auto) APTT PTT Ratio Sodium Potassium Chloride Carbon Dioxide Anion Gap BUN Creatinine Est Cr Clr Drug Dosing Est GFR ( Amer) Est GFR (Non-Af Amer) BUN/Creatinine Ratio Glucose POC Glucose 110 H 128 H Estimat Average Glucose Hemoglobin A1c Calcium Phosphorus Magnesium Total Bilirubin AST ALT Alkaline Phosphatase Ammonia Troponin I Total Protein Albumin Globulin Albumin/Globulin Ratio Lipase TSH Urine Color Dark Yellow Urine Appearance Cloudy A Urine pH 5.0 Ur Specific [place] 1.030 Urine Protein 2+ H Urine Glucose (UA) Negative Urine Ketones Trace H Urine Blood Negative Urine Nitrite Negative Urine Bilirubin 1+ H Urine Urobilinogen Negative Ur Leukocyte Esterase 1+ H Urine WBC (Auto) >30 H Urine RBC (Auto) 5-10 H U Hyaline Cast (Auto) >30 H U Epithel Cells (Auto) >30 H Urine Bacteria (Auto) Negative Amorphous Sediment Present A Medications Administered Current Inpatient Medications Acetaminophen (Tylenol) 325 mg PO Q6H PRN PRN Reason: Pain or Fever Stop: 12/12/19 01:17 Aspirin (Ecotrin Ectab) 81 mg PO HS [facility] Stop: 12/12/19 20:59 Dextrose (Dextrose 50%) 25 - 50 ml IV UD PRN; Protocol PRN Reason: Hypoglycemia Protocol Stop: 12/12/19 04:22 Duloxetine HCl (Cymbalta) 60 mg PO DAILY [facility] Stop: 12/12/19 08:59 Last Admin: 11/12/19 08:25 Dose: 60 mg Documented by: Ertapenem (Consult) 1 ea N/A UD PRN PRN Reason: Consult Stop: 12/12/19 03:29 Folic Acid (Folvite) 1 mg PO QAM [facility] Stop: 12/12/19 08:59 Last Admin: 11/12/19 08:25 Dose: 1 mg Documented by: Glucagon (Glucagen) 1 mg SQ UD PRN; Protocol PRN Reason: Hypoglycemia Protocol Stop: 12/12/19 04:22 Glucose (Dex4 Glucose) 4 - 8 tabs PO UD PRN; Protocol PRN Reason: Hypoglycemia Protocol Stop: 12/12/19 04:22 Glucose (Glucose 40%) 15 - 30 gm PO UD PRN; Protocol PRN Reason: Hypoglycemia Protocol Stop: 12/12/19 04:22 Hydromorphone HCl (Dilaudid) 0.25 mg IV Q3H PRN PRN Reason: Pain Stop: 11/26/19 01:17 Hydroxychloroquine Sulfate (Plaquenil) 200 mg PO HS [facility] Stop: 12/12/19 20:59 Potassium Chloride/Sodium Chloride (Normal Saline W/20 Meq Kcl) 20 meq in 1,000 mls @ 75 mls/hr IV .[id number] [facility] Stop: 12/12/19 01:17 Last Admin: 11/12/19 02:09 Dose: 75 mls/hr Documented by: Promethazine HCl 12.5 mg/ (Sodium Chloride) 50.5 mls @ 202 mls/hr IV Q6H PRN PRN Reason: Nausea And Vomiting Stop: 12/12/19 01:17 Lorazepam (Ativan) 1 mg in 2 mls @ 0.5 mls/min IV Q10M PRN PRN Reason: seizures Stop: 12/12/19 01:17 Ertapenem 500 mg/ Sodium (Chloride) 55 mls @ 110 mls/hr IV Q24H [facility]LA; Protocol Stop: 11/21/19 21:59 Insulin Aspart (Novolog Flexpen) 0 units SC Q6 [facility] Stop: 12/12/19 04:24 Last Admin: 11/12/19 12:02 Dose: Not Given Documented by: Insulin Glargine (Lantus Solostar Pen) 5 units SC DAILY [facility] Stop: 12/13/19 08:59 Latanoprost (Xalatan Oph) 1 drops OP HS [facility] Stop: 12/12/19 20:59 Metoprolol Tartrate (Lopressor) 25 mg PO BID [facility] Stop: 12/12/19 08:59 Last Admin: 11/12/19 08:25 Dose: 25 mg Documented by: Miscellaneous (Carbohydrates For Hypoglycemia) 15 - 30 gm PO UD PRN PRN Reason: Hypoglycemia Protocol Stop: 12/12/19 04:22 Montelukast Sodium (Singulair) 10 mg PO HS [facility] Stop: 12/12/19 20:59 Multivitamins/Minerals (Multivitamin W/ Minerals Tab) 1 tab PO QAM [facility] Stop: 12/12/19 08:59 Last Admin: 11/12/19 08:25 Dose: 1 tab Documented by: Oxycodone HCl (Roxicodone Immediate Rel) 5 mg PO Q4H PRN PRN Reason: Pain Stop: 11/26/19 01:17 Pantoprazole Sodium (Protonix) 40 mg PO QAM [facility] Stop: 12/12/19 08:59 Last Admin: 11/12/19 08:25 Dose: 40 mg Documented by: Prednisone (Prednisone) 5 mg PO DAILY [facility] Stop: 12/12/19 08:59 Last Admin: 11/12/19 08:25 Dose: 5 mg Documented by: Raspberry (Raspberry) 5 ml PO DAILY [facility] Stop: 11/26/19 08:59 Last Admin: 11/12/19 08:25 Dose: 5 ml Documented by: Thiamine HCl (Vitamin B-1) 50 mg PO QAM [facility] Stop: 12/12/19 08:59 Last Admin: 11/12/19 08:25 Dose: 50 mg Documented by: Vancomycin HCl (Vancomycin Hcl) 125 mg PO DAILY [facility] Stop: 11/26/19 08:59 Last Admin: 11/12/19 08:25 Dose: 125 mg Documented by: (1) Acute renal failure Acute renal failure type: unspecified Qualified Code(s): N17.9 - Acute kidney failure, unspecified
--- NOTE | 2019-11-12 15:10 | Anesthesiology Consultation ---
Date of Service November 12, 2019 Assessment & Plan (1) Encounter for pre-operative examination: Chart Review Chart Review: Acceptable Risk for Surgery (pending clearance from hospitalist team.), Patient NOT seen in Pre Admission Testing and entry specialist initiated Consults Requested none Additional Notes Per Dr. Carmona on 11/12/2019 (1) Syncope: Given the clinical presentation I believe this represents an orthostatic event. There are no significant arrhythmias on monitor and no significant structural ab normalities on echocardiogram. Recommend continued volume expansion with IV fluids. (2) Elevated troponin: Chronically elevated with known small vessel coronary artery disease. Significantly volume depleted with transaminitis and acute renal failure No significant wall motion measures on echocardiogram I do not believe this represents an acute ischemic event. No further work-up necessary at this time. (3) CAD (coronary artery disease): Known chronic small vessel disease (4) Preop cardiovascular exam: The patient was counseled on place her as a moderate risk for any adverse perioperative cardiovascular event with her wrist being approximately less than 5%. She was further counseled that no further cardiac testing or intervention would further lower this risk. The patient states that she understands, she is accepting of this risk and wishes to proceed with any surgeries that may be deemed necessary. No need to delay from a cardiac standpoint. (5) Acute renal failure: Receiving IV fluids History Surgery Operation Date: 11/13/19 07:30 Proposed Procedures p Laparoscopic Cholecystectomy, possible cholangiogram - Chucho Han MD Height/Weight Height: 5 ft Weight: 57.9 kg Allergies Allergy/AdvReac Type Severity Reaction Status Date / Time methotrexate Allergy Intermediate RASH/PNEUMO Verified 11/11/19 23:47 NITIS Penicillins Allergy Intermediate hives Verified 11/11/19 23:47 ranitidine Allergy Intermediate rash Verified 11/11/19 23:47 Insecticides Allergy Severe DIFFICULTY Uncoded 11/11/19 23:47 BREATHING; FULL BODY SWELLING Medications Home Medications Medication Instructions Recorded Confirmed Last Taken aspirin [Aspir-81] 81 mg PO HS 07/20/18 11/12/19 03/08/19 20:00 duloxetine 60 mg PO DAILY 07/20/18 11/12/19 03/02/19 folic acid 1 mg PO QAM 07/20/18 11/12/19 03/08/19 13:00 hydroxychloroquine 200 mg PO HS 07/20/18 11/12/19 Unknown lisinopril 2.5 mg PO QAM 07/20/18 11/12/19 03/08/19 13:00 metoprolol tartrate 25 mg PO BID 07/20/18 11/12/19 03/08/19 13:00 montelukast 10 mg PO HS 07/20/18 11/12/19 03/08/19 23:00 pantoprazole 40 mg PO QAM 07/20/18 11/12/19 03/08/19 13:00 prednisone 5 - 10 mg PO QAM 07/20/18 11/12/19 03/08/19 13:00 thiamine mononitrate (vit B1) 50 mg PO QAM 07/20/18 11/12/19 03/08/19 13:00 Ocuvite with Lutein 1 tab PO QAM 03/07/19 11/12/19 03/08/19 23:00 albuterol sulfate [ProAir HFA] 2 puff INHALATION Q4 PRN 03/07/19 11/12/19 Unknown betamethasone dipropionate 1 applic TOPICAL DAILY PRN 03/07/19 11/12/19 Unknown cholecalciferol (vitamin D3) 2,000 unit PO QAM 03/07/19 11/12/19 03/08/19 12:00 [Vitamin D3] clindamycin HCl 600 mg PO UD PRN 03/07/19 11/12/19 Unknown cyanocobalamin (vitamin B-12) 2,000 mcg PO 3XWK 03/07/19 11/12/19 03/07/19 13:00 [Vitamin B-12] fluticasone propionate [Flonase 2 spray INTRANASAL DAILY PRN 03/07/19 11/12/19 Unknown Allergy Relief] latanoprost [Xalatan] 1 drp OPHTHALMIC (EYE) HS 03/07/19 11/12/19 03/08/19 23:00 leflunomide [Arava] 10 mg PO QAM 03/07/19 11/12/19 03/08/19 23:00 levalbuterol HCl [Xopenex] 1.25 mg INHALATION Q4 PRN 03/07/19 11/12/19 Unknown nitroglycerin 0.4 mg SUBLINGUAL UD 03/07/19 11/12/19 Unknown nystatin 1 applic TOPICAL TID PRN 03/07/19 11/12/19 Unknown tramadol 50 mg PO BID PRN 03/07/19 11/12/19 03/06/19 triamcinolone acetonide 1 applic TOPICAL BID PRN 03/07/19 11/12/19 Unknown doxylamine-dextromethorphan [Vicks 30 ml PO Q6H PRN 11/12/19 11/12/19 Unknown NyQuil Cough] fluticasone furoate-vilanterol 1 inh INHALATION DAILY 11/12/19 11/12/19 Unknown tyfbfcmq-rrq-sdwl-FA-lutein 1 tab PO DAILY 11/12/19 11/12/19 Unknown [Centrum Silver Women] rosuvastatin 10 mg PO DAILY 11/12/19 11/12/19 Unknown vancomycin 125 mg PO DIRECTED 11/12/19 11/12/19 Unknown Active Medications Generic Name Dose Route Start Last Admin Trade Name Freq PRN Reason Stop Dose Admin Duloxetine HCl 60 mg 11/12/19 09:00 11/12/19 08:25 Cymbalta PO 12/12/19 08:59 60 mg DAILY KARLA Administration Folic Acid 1 mg 11/12/19 09:00 11/12/19 08:25 Folvite PO 12/12/19 08:59 1 mg QAM KARLA Administration Potassium Chloride/Sodium Chloride 20 meq in 1,000 mls @ 75 mls/hr 11/12/19 01:18 11/12/19 14:43 Normal Saline W/20 Meq Kcl IV 12/12/19 01:17 0 mls/hr .[id number] KARLA Infusion Insulin Aspart 0 units 11/12/19 04:25 11/12/19 12:02 Novolog Flexpen SC 12/12/19 04:24 Not Given Q6 KARLA Metoprolol Tartrate 25 mg 11/12/19 09:00 11/12/19 08:25 Lopressor PO 12/12/19 08:59 25 mg BID KARLA Administration Multivitamins/Minerals 1 tab 11/12/19 09:00 11/12/19 08:25 Multivitamin W/ Minerals Tab PO 12/12/19 08:59 1 tab QAM KARLA Administration Pantoprazole Sodium 40 mg 11/12/19 09:00 11/12/19 08:25 Protonix PO 12/12/19 08:59 40 mg QAM KARLA Administration Prednisone 5 mg 11/12/19 09:00 11/12/19 08:25 Prednisone PO 12/12/19 08:59 5 mg DAILY KARLA Administration Raspberry 5 ml 11/12/19 09:00 11/12/19 08:25 Raspberry PO 11/26/19 08:59 5 ml DAILY KARLA Administration Thiamine HCl 50 mg 11/12/19 09:00 11/12/19 08:25 Vitamin B-1 PO 12/12/19 08:59 50 mg QAM KARLA Administration Vancomycin HCl 125 mg 11/12/19 09:00 11/12/19 08:25 Vancomycin Hcl PO 11/26/19 08:59 125 mg DAILY KARLA Administration Past Medical History Medical History Asthma (Chronic) inhalers prn Chronic steroid use prednisone daily CKD (chronic kidney disease), stage III (Chronic) COPD (chronic obstructive pulmonary disease) (Chronic) inhalers prn Depression (Chronic) DJD of right shoulder DM type 2 (diabetes mellitus, type 2) (Chronic) Dyslipidemia (Chronic) Gastroparesis (Chronic) GERD (gastroesophageal reflux disease) (Chronic) Glaucoma (Chronic) Gout H/O interstitial lung disease (Chronic) "drug induced- methotrexate " Heart disease (Chronic) HTN (hypertension) (Chronic) Migraines (Chronic) NSTEMI (non-ST elevated myocardial infarction) (Acute 08/06/13) Osteoarthritis (Chronic) Peripheral neuropathy (Chronic) Rheumatoid arthritis (Chronic) "on chronic steroids" Past Family History Family History Father Family history of diabetes mellitus Other No family history of adverse response to anesthesia Past Surgical History Surgical History H/O cardiac catheterization (Chronic) "cath 07/2013- single vessel CAD involving apical segment LAD, medical management indicated" H/O colonoscopy (Chronic) History of esophagogastroduodenoscopy (EGD) History of hysterectomy (Chronic) History of tooth extraction all top teeth S/P removal of ovarian cyst (Chronic) S/P rotator cuff repair (Chronic) "right shoulder" S/P total knee arthroplasty (Chronic) "left knee" Social History Smoking Status: Never smoker Do You Dip or Chew Tobacco: No Hx Alcohol Use: No Alcohol type: beer alcohol intake frequency: holidays/special occasions only Hx Substance Use: No substance use type: does not use Physical Exam Vital Signs Last Vital Signs Temp 37.0 C 11/12/19 07:00 Pulse 89 11/12/19 07:00 Resp 20 11/12/19 07:00 BP 143/83 H 11/12/19 07:00 Pulse Ox 94 11/12/19 07:00 Testing Laboratory Results 11/12/19 05:35 11/12/19 05:35 APTT 23.4 Seconds (21.0-31.0) 11/12/19 05:35 Hemoglobin A1c 6.1 % (4.5-5.6) H 11/12/19 05:35 Urine Color Dark Yellow 11/12/19 10:30 Urine Appearance Cloudy (Clear) A 11/12/19 10:30 Urine pH 5.0 (4.5-7.5) 11/12/19 10:30 Ur Specific [place] 1.030 (1.000-1.030) 11/12/19 10:30 Urine Protein 2+ (Negative) H 11/12/19 10:30 Urine Glucose (UA) Negative (Negative) 11/12/19 10:30 Urine Ketones Trace (Negative) H 11/12/19 10:30 Urine Nitrite Negative (Negative) 11/12/19 10:30 Ur Leukocyte Esterase 1+ (Negative) H 11/12/19 10:30 Urine WBC (Auto) >30 /hpf (0-5) H 11/12/19 10:30 Urine RBC (Auto) 5-10 /hpf (0-4) H 11/12/19 10:30 U Hyaline Cast (Auto) >30 /lpf (0-5) H 11/12/19 10:30 U Epithel Cells (Auto) >30 /lpf (0-5) H 11/12/19 10:30 Urine Bacteria (Auto) Negative (Negative) 11/12/19 10:30 11/12/19 11/12/19 11/12/19 11:46 07:54 05:05 POC Glucose 128 H 110 H 123 H Echocardiogram Date: 11/12/19 EF: 55-60% LV Function: normal RWMA: + hypokinetic (small sized apical wall motion abnormality with hypokinesis of apical segment of inferior wall.) Other Findings: + diastolic dysfunction (grade 1) aortic valve sclerosis without significant aortic stenosis, moderate biatrial enlargement. Other Testing Stress Test Date: 09/22/18 Type: DSE The stress echo is negative for inducible ischemia. Resting Study: The qualitiative LVEF is 55-59% The LV wallt hickness is mildly increased (concentric) The LV diastolic function is mildly abnormal (Grade I). There is AV sclerosis without stenosis. EEG 11/12/2019 Interpretation This EEG is at most mildly slow during what appears to be a transition between drowsiness and wakefulness and is at most revealing of a nonspecific generalized encephalopathy but there are no epileptogenic features
--- NOTE | 2019-11-12 15:40 | Magnetic Resonance Report ---
MR MRCP HISTORY: 74 years-old Female abd pain acute generalized abdominal pain COMPARISON: Right upper quadrant abdominal ultrasound and CT abdomen pelvis 11/11/2019 TECHNIQUE: MRCP without the use of IV contrast was obtained according to institutional protocol. FINDINGS: No gross abnormality identified on the large field of view meter shop superintendent localizer images. Grade 1 anterolist hesis L4 on L5, likely secondary to long-standing facet arthrosis. Suggested cyst of the left kidney measure up to 5.2 cm. Mild nonspecific bilateral perinephric stranding. Mild cardiomegaly. No aortic aneurysm or adenopathy. Decompressed IVC. No bowel wall thickening or significant free pelvic fluid. Mild generalized pancreatic atrophy. No pancreatic ductal dilation. Cholelithiasis is better apprecia sandeep on comparison ultrasound. No gallbladder wall thickening or significant pericholecystic edema. No evidence of choledocholithiasis. Normal common bile duct, 4 mm. No intrahepatic biliary ductal dilat ion. There is an 8 mm T2 hyperintense structure involving the pancreatic body suggestive of a probabl e sidebranch IPMN. IMPRESSION: 1. Cholelithiasis is better appreciated on comparison ultrasound. There is no evidence of acute medhat cystitis or choledocholithiasis. 2. No biliary ductal dilation. 3. 8 mm cystic structure of the pancreatic body suggests mucinous cyst versus IPMN. ACT 112: Negative or not required by law. The above report was generated using voice recognition software. It may contain grammatical, syntax o r spelling errors. Electronically signed by: Lorenzo Mccoy M.D. 11/12/2019 3:39 PM
[2019-11-12] MEDS ORDERED: GADOBUTROL 65ML VIAL IV PRN (15:51)
--- NOTE | 2019-11-12 16:47 | Magnetic Resonance Report ---
MR brain seizure wo/w con HISTORY: 74 years-old Female poss focal seizure acute headache with retro-orbital pressure COMPARISON: Head CT 11/11/2019, brain MRI 07/22/2018 TECHNIQUE: Multiplanar multisequence MRI of the brain was obtained both with and without the use of 5 .5 mL Gadavist FINDINGS: Mildly motion degraded exam. Box Press Operator localizer images demonstrate no gross abnormality. There is no res tricted diffusion to suggest acute or subacute infarction. The midline structures including the corpu s callosum, brainstem, optic chiasm, pituitary and pineal glands appear unremarkable on the sagittal T1 series. No cerebellar tonsillar herniation. Degenerative changes noted about the imaged cervical s pine. No acute intracranial hemorrhage, midline shift, abnormal extra-axial collections, hydrocephalus or i ntracranial mass.. No abnormal intra-axial or extra-axial enhancement. No acute seizure focus. No fransisco dence of mesial temporal sclerosis. Mild degree of T2/FLAIR scattered hyperintensities throughout the white matter redemonstrated suggesting chronic microvascular ischemic changes. Mild involutional sneha nges. The major flow voids appear patent. Prior bilateral cataract repair. Trace bilateral mastoid ef fusions. Mild mucosal thickening of the ethmoid air cells and left maxillary sinus. Leftward bowing a nd spurring of the nasal septum with right brayan bullosa. Soft tissues and calvarium are unremarkabl e. IMPRESSION: 1. Motion degraded exam without acute intracranial abnormality identified, specifically there is no e vidence of acute or subacute infarct. 2. No abnormal enhancement. 3. Age-related involutional changes with moderate chronic microvascular ischemic disease. ACT 112: Negative or not required by law. The above report was generated using voice recognition software. It may contain grammatical, syntax o r spelling errors. Electronically signed by: Lorenzo Mccoy M.D. 11/12/2019 4:46 PM
[2019-11-12] MEDS: HYDROXYCHLOROQUINE SULFATE 200 MG TAB PO SCH (20:00)
[2019-11-12] MEDS: ASPIRIN 81 MG ECTAB PO SCH (20:00)
[2019-11-12] MEDS: MONTELUKAST SODIUM 10 MG TABLET PO SCH (20:01)
[2019-11-12] MEDS: LATANOPROST 0.005% OP SOLN 2.5 ML BTL OP SCH (20:09)
[2019-11-12] MEDS ORDERED: ERTAPENEM SODIUM 500 MG in SODIUM CHLORIDE 0.9% 50 ML IV SCH (22:00)
[2019-11-12] MEDS: ERTAPENEM SODIUM 1,000 MG in SODIUM CHLORIDE 0.9% 50 ML IV SCH (22:27)
[2019-11-13] MEDS: INSULIN ASPART 100 UNITS/ML 3 ML PEN SC SCH ×5 (00:34→21:08)
[2019-11-13] MEDS: NSS + 20MEQ KCL 20 MEQ/1,000 ML BAG IV SCH ×2 (05:37→22:40)
[2019-11-13 06:38] LABS: Hematocrit (blood only) 35.6 % (37-47); Mean Corpuscular Hemoglobin 30.2 pg (25-34); Mean Corpuscular Hgb Conc 33.7 g/dL (32-36); Mean Corpuscular Volume 89.7 fL (80-100); Mean Platelet Volume 10.1 fL (7.4-10.4); Platelet Count 101 K/uL (130-400); RDW Coefficient of Variation 14.6 % (11.5-14.5); RDW Standard Deviation 48.2 fL (36.4-46.3); Red Blood Count 3.97 M/uL (4.2-5.4); White Blood Count 3.83 K/uL (4.8-10.8)
[2019-11-13 06:47] LABS: Prothrombin Time 10.3 Seconds (9.0-12.0)
[2019-11-13] MEDS ORDERED: PROPOFOL IV EMULSION 10 MG/ML 20 ML VIAL IV ONE (06:52)
[2019-11-13] MEDS ORDERED: ONDANSETRON INJ 2 MG/ML 2 ML VIAL ONE (06:52)
[2019-11-13] MEDS ORDERED: fentaNYL citrate 100 MCG/2 ML VIAL ONE (06:52)
[2019-11-13] MEDS ORDERED: ROCURONIUM BROMIDE 10 MG/ML 5 ML VIAL ONE (06:52)
[2019-11-13] MEDS ORDERED: LIDOCAINE HCL 2% 2 ML VIAL/AMP(20MG/ML) INFIL ONE (06:52)
[2019-11-13] MEDS ORDERED: BUPIVACAINE/EPINEPHRINE 0.5% MPF 1:200,000 10 ML VIAL ONE (06:56)
[2019-11-13 07:10] LABS: Calcium 8.9 mg/dl (8.5-10.1); Creatinine Clr Calc Pharmacy 42.5 ml/min; Est GFR (African American) 67.6; Est GFR (Non-African American) 58.3; Magnesium 1.7 mg/dl (1.8-2.4); Potassium 3.7 mmol/L (3.5-5.1)
[2019-11-13] MEDS ORDERED: CONRAY 60% 50 ML VIAL ONE (07:15)
--- NOTE | 2019-11-13 07:18 | History & Physical Bridge Note ---
Date of Service November 13, 2019 History & Physical Bridge Note I have examined the patient, reviewed the History & Physical and in the interval since the performance of the History & Physical I have noted the following changes of clinical significance: no changes noted
[2019-11-13] MEDS ORDERED: CEFAZOLIN 250 MG/ML 1 GM VIAL ONE (08:34)
[2019-11-13] MEDS ORDERED: HYDROCORTISONE SOD SUCCINATE 100 MG/2 ML VIAL ONE (08:34)
[2019-11-13] MEDS ORDERED: MAGNESIUM SULFATE / D5W 1 GM/100 ML BAG IV ONE (08:49)
[2019-11-13] MEDS ORDERED: GLYCOPYRROLATE 0.2 MG/ML VIAL ONE ×2 (08:50→09:54)
[2019-11-13] MEDS ORDERED: ePHEDrine sulfate 50 MG/ML SYR ONE (08:50)
--- NOTE | 2019-11-13 08:57 | Hospitalist Progress Note ---
Date of Service November 13, 2019 Assessment & Plan (1) Syncope: Secondary to possible orthostasis given low BP upon arrival at the ER, abdominal pain from possible cholecystitis rule out CBD obstruction given abnormal LFTs, overt sepsis possibly downplayed by chronic steroid Rx Rule out new onset seizure given patient account of events Chronic diastolic heart failure as per records (EF 55 to 59%, DSE 2019), patient on the dry side CAD as per records Hypertension, borderline BP upon arrival at the ER currently elevated Troponin elevation possibly secondary to above Medical telemetry for syncopal event, troponin elevation - on my review of system this AM, pt reported on and off chest pain in the past week or so - given hx of poss. LOC, trop elevation and plan for poss. surgery tmrw, will order echo and consult cardiology for further eval - cardiology evaluated the pt, hx of CAD, chronic elev. trop., reported hx of chest pain seems MSK in origin, pt is moderate periop. risk, no intervention that would lower this risk Poss. Cholecystitis Surgery consult RE possible cholecystitis Plan for poss. cholecystectomy today AM, pt is now s/p lap cholecystectomy (11/13/2019), tolerated procedure well Ertapenem for possible cholecystitis Elevated LFTs GI consult RE abnormal LFTs in the setting of possible cholecystitis (ER provider already in touch with Dr. 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 seizure-like activity (observed by ) Seizure precautions, Ativan as needed, hold home Tramadol until seizure disorder ruled out EEG, MRI brain for possible seizure work-up Neurology consult RE possible seizure activity Per neurology - most likely presyncope event from orthostasis DM 2 diet-controlled, well-controlled as of recent outpatient hemoglobin A1c of 5.23 July 2019 Basal insulin, ISS BG goal [id number], update hemoglobin A1c Electrolyte imbalance - monitor and replete, K, Mg, Phos as needed - goal K>4, goal Mg>2 asthma/COPD as per records, pulmonary status at baseline rheumatoid arthritis on chronic steroid Rx DVT prophylaxis. SCDs RE possible surgery Full code Admission and Anticipated Discharge Date Admission Date: November 11, 2019 Subjective Pt s/p lap cholecystectomy, tolerated procedure well. She is lying in bed, in NAD. Denies incr. abd. pain, chest pain, shortness of breath. Feels little nausous, no vomiting. Answers questions appropriately, alert and oriented. Update: Later in the afternoon/ evening, notified of hemorrhage from the surgical site, also poss. presyncopal episode. Pt now lying in bed, legs elevated, RN holding pressure over incision. Pt is alert and oriented and answers questions appropriately. Surgeon was notified, H&H ordered. Will monitor BP/ VS. Human Machine Interface Engineer also notified. Review of Systems Review of Systems: All systems reviewed & are unremarkable except as noted in HPI & below Constitutional: no fever and no chills Respiratory: no cough and no dyspnea Cardiovascular: no chest pain and no palpitations Gastrointestinal: + nausea (mild); no abdominal pain and no vomiting Physical Exam Physical Exam: GENERAL: elderly female lying in bed, in NAD HEENT: NC/AT, EOMI, PERRL NECK : Supple, no tenderness CHEST : CTAB, no wheezing, rhonchi, crackles HEART : RRR, no obvious murmurs ABDOMEN: + bowel sounds, soft, obese, some distention, RUQ tenderness, few surg. incisions, dry clean, intact EXTREMITIES : no LE edema b/l, no LE tenderness, moves extremities spontaneously SKIN: warm, dry NEUROLOGIC : alert and oriented,answers questions appropriately, no facial asymmetry, speech fluent, moves extremities spontaneously Results & Data ([facility]) Vital Signs (Past 12 Hours) Vital Signs Temp Pulse Pulse Resp BP Pulse Ox 11/13/19 07:00 36.7 C 68 20 192/72 H 94 11/13/19 03:20 36.4 C L 64 20 168/69 H 96 11/13/19 01:00 66 11/12/19 22:30 36.8 C 67 18 175/80 H 95 Laboratory Results 11/13/19 11/13/19 11/13/19 Range/Units 06:25 06:15 06:15 WBC (4.8-10.8) K/uL RBC (4.2-5.4) M/uL Hgb (12.0-16.0) g/dL Hct (37-47) % MCV (80-100) fL MCH (25-34) pg MCHC (32-36) g/dL RDW Std Deviation (36.4-46.3) fL RDW Coeff of Xochitl (11.5-14.5) % Plt Count (130-400) K/uL MPV (7.4-10.4) fL PT 10.3 (9.0-12.0) Seconds INR 1.0 (0.9-1.1) Sodium 139 (136-145) mmol/L Potassium 3.7 (3.5-5.1) mmol/L Chloride 107 (98-107) mmol/L Carbon Dioxide 23 (21-32) mmol/L Anion Gap 9.0 (3-11) BUN 24 H (7-18) mg/dl Creatinine 0.97 (0.6-1.2) mg/dl Est Cr Clr Drug Dosing 42.5 ml/min Est GFR ( Amer) 67.6 Est GFR (Non-Af Amer) 58.3 BUN/Creatinine Ratio 25.0 H (10-20) Glucose 188 H (70-99) mg/dl POC Glucose 146 H (70-99) mg/dl Calcium 8.9 (8.5-10.1) mg/dl Magnesium 1.7 L (1.8-2.4) mg/dl Urine Color Urine Appearance (Clear) Urine pH (4.5-7.5) Ur Specific [place] (1.000-1.030) Urine Protein (Negative) Urine Glucose (UA) (Negative) Urine Ketones (Negative) Urine Blood (Negative) Urine Nitrite (Negative) Urine Bilirubin (Negative) Urine Urobilinogen (Negative) Ur Leukocyte Esterase (Negative) Urine WBC (Auto) (0-5) /hpf Urine RBC (Auto) (0-4) /hpf U Hyaline Cast (Auto) (0-5) /lpf U Epithel Cells (Auto) (0-5) /lpf Urine Bacteria (Auto) (Negative) Amorphous Sediment (None Prsent) 11/13/19 11/13/19 11/13/19 Range/Units 06:15 05:55 05:53 WBC 3.83 L (4.8-10.8) K/uL RBC 3.97 L (4.2-5.4) M/uL Hgb 12.0 (12.0-16.0) g/dL Hct 35.6 L (37-47) % MCV 89.7 (80-100) fL MCH 30.2 (25-34) pg MCHC 33.7 (32-36) g/dL RDW Std Deviation 48.2 H (36.4-46.3) fL RDW Coeff of Xochitl 14.6 H (11.5-14.5) % Plt Count 101 L (130-400) K/uL MPV 10.1 (7.4-10.4) fL PT (9.0-12.0) Seconds INR (0.9-1.1) Sodium (136-145) mmol/L Potassium (3.5-5.1) mmol/L Chloride (98-107) mmol/L Carbon Dioxide (21-32) mmol/L Anion Gap (3-11) BUN (7-18) mg/dl Creatinine (0.6-1.2) mg/dl Est Cr Clr Drug Dosing ml/min Est GFR ( Amer) Est GFR (Non-Af Amer) BUN/Creatinine Ratio (10-20) Glucose (70-99) mg/dl POC Glucose 70 67 L* (70-99) mg/dl Calcium (8.5-10.1) mg/dl Magnesium (1.8-2.4) mg/dl Urine Color Urine Appearance (Clear) Urine pH (4.5-7.5) Ur Specific [place] (1.000-1.030) Urine Protein (Negative) Urine Glucose (UA) (Negative) Urine Ketones (Negative) Urine Blood (Negative) Urine Nitrite (Negative) Urine Bilirubin (Negative) Urine Urobilinogen (Negative) Ur Leukocyte Esterase (Negative) Urine WBC (Auto) (0-5) /hpf Urine RBC (Auto) (0-4) /hpf U Hyaline Cast (Auto) (0-5) /lpf U Epithel Cells (Auto) (0-5) /lpf Urine Bacteria (Auto) (Negative) Amorphous Sediment (None Prsent) 11/13/19 11/12/19 11/12/19 Range/Units 03:18 23:54 18:29 WBC (4.8-10.8) K/uL RBC (4.2-5.4) M/uL Hgb (12.0-16.0) g/dL Hct (37-47) % MCV (80-100) fL MCH (25-34) pg MCHC (32-36) g/dL RDW Std Deviation (36.4-46.3) fL RDW Coeff of Xochitl (11.5-14.5) % Plt Count (130-400) K/uL MPV (7.4-10.4) fL PT (9.0-12.0) Seconds INR (0.9-1.1) Sodium (136-145) mmol/L Potassium (3.5-5.1) mmol/L Chloride (98-107) mmol/L Carbon Dioxide (21-32) mmol/L Anion Gap (3-11) BUN (7-18) mg/dl Creatinine (0.6-1.2) mg/dl Est Cr Clr Drug Dosing ml/min Est GFR ( Amer) Est GFR (Non-Af Amer) BUN/Creatinine Ratio (10-20) Glucose (70-99) mg/dl POC Glucose 73 77 104 H (70-99) mg/dl Calcium (8.5-10.1) mg/dl Magnesium (1.8-2.4) mg/dl Urine Color Urine Appearance (Clear) Urine pH (4.5-7.5) Ur Specific [place] (1.000-1.030) Urine Protein (Negative) Urine Glucose (UA) (Negative) Urine Ketones (Negative) Urine Blood (Negative) Urine Nitrite (Negative) Urine Bilirubin (Negative) Urine Urobilinogen (Negative) Ur Leukocyte Esterase (Negative) Urine WBC (Auto) (0-5) /hpf Urine RBC (Auto) (0-4) /hpf U Hyaline Cast (Auto) (0-5) /lpf U Epithel Cells (Auto) (0-5) /lpf Urine Bacteria (Auto) (Negative) Amorphous Sediment (None Prsent) 11/12/19 11/12/19 Range/Units 11:46 10:30 WBC (4.8-10.8) K/uL RBC (4.2-5.4) M/uL Hgb (12.0-16.0) g/dL Hct (37-47) % MCV (80-100) fL MCH (25-34) pg MCHC (32-36) g/dL RDW Std Deviation (36.4-46.3) fL RDW Coeff of Xochitl (11.5-14.5) % Plt Count (130-400) K/uL MPV (7.4-10.4) fL PT (9.0-12.0) Seconds INR (0.9-1.1) Sodium (136-145) mmol/L Potassium (3.5-5.1) mmol/L Chloride (98-107) mmol/L Carbon Dioxide (21-32) mmol/L Anion Gap (3-11) BUN (7-18) mg/dl Creatinine (0.6-1.2) mg/dl Est Cr Clr Drug Dosing ml/min Est GFR ( Amer) Est GFR (Non-Af Amer) BUN/Creatinine Ratio (10-20) Glucose (70-99) mg/dl POC Glucose 128 H (70-99) mg/dl Calcium (8.5-10.1) mg/dl Magnesium (1.8-2.4) mg/dl Urine Color Dark Yellow Urine Appearance Cloudy A (Clear) Urine pH 5.0 (4.5-7.5) Ur Specific [place] 1.030 (1.000-1.030) Urine Protein 2+ H (Negative) Urine Glucose (UA) Negative (Negative) Urine Ketones Trace H (Negative) Urine Blood Negative (Negative) Urine Nitrite Negative (Negative) Urine Bilirubin 1+ H (Negative) Urine Urobilinogen Negative (Negative) Ur Leukocyte Esterase 1+ H (Negative) Urine WBC (Auto) >30 H (0-5) /hpf Urine RBC (Auto) 5-10 H (0-4) /hpf U Hyaline Cast (Auto) >30 H (0-5) /lpf U Epithel Cells (Auto) >30 H (0-5) /lpf Urine Bacteria (Auto) Negative (Negative) Amorphous Sediment Present A (None Prsent) Medications Administered Current Inpatient Medications Acetaminophen (Tylenol) 325 mg PO Q6H PRN PRN Reason: Pain or Fever Stop: 12/12/19 01:17 Aspirin (Ecotrin Ectab) 81 mg PO HS KARLA Stop: 12/12/19 20:59 Last Admin: 11/12/19 20:00 Dose: 81 mg Documented by: Dextrose (Dextrose 50%) 25 - 50 ml IV UD PRN; Protocol PRN Reason: Hypoglycemia Protocol Stop: 12/12/19 04:22 Last Admin: 11/13/19 06:07 Dose: 25 ml Documented by: Duloxetine HCl (Cymbalta) 60 mg PO DAILY KARLA Stop: 12/12/19 08:59 Last Admin: 11/12/19 08:25 Dose: 60 mg Documented by: Ertapenem (Consult) 1 ea N/A UD PRN PRN Reason: Consult Stop: 12/12/19 03:29 Folic Acid (Folvite) 1 mg PO QAM K[facility]LA Stop: 12/12/19 08:59 Last Admin: 11/12/19 08:25 Dose: 1 mg Documented by: Gadobutrol (Gadavist 65ml) 5.5 ml IV ONCE PRN PRN Reason: Interaction Checking Stop: 11/16/19 15:50 Last Admin: 11/12/19 15:52 Dose: 5.5 ml Documented by: Glucagon (Glucagen) 1 mg SQ UD PRN; Protocol PRN Reason: Hypoglycemia Protocol Stop: 12/12/19 04:22 Glucose (Dex4 Glucose) 4 - 8 tabs PO UD PRN; Protocol PRN Reason: Hypoglycemia Protocol Stop: 12/12/19 04:22 Glucose (Glucose 40%) 15 - 30 gm PO UD PRN; Protocol PRN Reason: Hypoglycemia Protocol Stop: 12/12/19 04:22 Hydromorphone HCl (Dilaudid) 0.25 mg IV Q3H PRN PRN Reason: Pain Stop: 11/26/19 01:17 Hydroxychloroquine Sulfate (Plaquenil) 200 mg PO HS [facility] Stop: 12/12/19 20:59 Last Admin: 11/12/19 20:00 Dose: 200 mg Documented by: Potassium Chloride/Sodium Chloride (Normal Saline W/20 Meq Kcl) 20 meq in 1,000 mls @ 75 mls/hr IV .[id number] KARLA Stop: 12/12/19 01:17 Last Infusion: 11/13/19 07:02 Dose: 0 mls/hr Documented by: Promethazine HCl 12.5 mg/ (Sodium Chloride) 50.5 mls @ 202 mls/hr IV Q6H PRN PRN Reason: Nausea And Vomiting Stop: 12/12/19 01:17 Lorazepam (Ativan) 1 mg in 2 mls @ 0.5 mls/min IV Q10M PRN PRN Reason: seizures Stop: 12/12/19 01:17 Ertapenem 1,000 mg/ Sodium (Chloride) 60 mls @ 100 mls/hr IV Q24H KARLA; Protocol Stop: 11/21/19 21:59 Last Infusion: 11/12/19 23:05 Dose: Infused Documented by: Magnesium Sulfate/Dextrose (Magnesium Sulfate / D5w) 1 gm in 100 mls @ 100 mls/hr IV ONE ONE Stop: 11/13/19 09:48 Insulin Aspart (Novolog Flexpen) 0 units SC Q6 [facility] Stop: 12/12/19 04:24 Last Admin: 11/13/19 06:14 Dose: Not Given Documented by: Insulin Glargine (Lantus Solostar Pen) 5 units SC DAILY [facility] Stop: 12/13/19 08:59 Latanoprost (Xalatan Oph) 1 drops OP [facility] Stop: 12/12/19 20:59 Last Admin: 11/12/19 20:09 Dose: 1 drops Documented by: Lisinopril (Zestril) 2.5 mg PO QAM [facility] Stop: 12/13/19 08:59 Metoprolol Tartrate (Lopressor) 25 mg PO BID [facility] Stop: 12/12/19 08:59 Last Admin: 11/12/19 20:00 Dose: 25 mg Documented by: Miscellaneous (Carbohydrates For Hypoglycemia) 15 - 30 gm PO UD PRN PRN Reason: Hypoglycemia Protocol Stop: 12/12/19 04:22 Montelukast Sodium (Singulair) 10 mg PO HS [facility] Stop: 12/12/19 20:59 Last Admin: 11/12/19 20:01 Dose: 10 mg Documented by: Multivitamins/Minerals (Multivitamin W/ Minerals Tab) 1 tab PO QAM [facility] Stop: 12/12/19 08:59 Last Admin: 11/12/19 08:25 Dose: 1 tab Documented by: Oxycodone HCl (Roxicodone Immediate Rel) 5 mg PO Q4H PRN PRN Reason: Pain Stop: 11/26/19 01:17 Pantoprazole Sodium (Protonix) 40 mg PO QAM [facility] Stop: 12/12/19 08:59 Last Admin: 11/12/19 08:25 Dose: 40 mg Documented by: Prednisone (Prednisone) 5 mg PO DAILY [facility] Stop: 12/12/19 08:59 Last Admin: 11/12/19 08:25 Dose: 5 mg Documented by: Raspberry (Raspberry) 5 ml PO DAILY [facility] Stop: 11/26/19 08:59 Last Admin: 11/12/19 08:25 Dose: 5 ml Documented by: Thiamine HCl (Vitamin B-1) 50 mg PO QAM [facility] Stop: 12/12/19 08:59 Last Admin: 11/12/19 08:25 Dose: 50 mg Documented by: Vancomycin HCl (Vancomycin Hcl) 125 mg PO DAILY [facility] Stop: 11/26/19 08:59 Last Admin: 11/12/19 08:25 Dose: 125 mg Documented by:
[2019-11-13] MEDS ORDERED: CEFAZOLIN 1000MG 1,000 MG/7.5 ML SYR IV ONE (09:01)
[2019-11-13] MEDS ORDERED: SURGICEL ABSORB HEMOSTAT 2IN X 14IN TOP ONE (09:13)
--- NOTE | 2019-11-13 09:24 | Fluoroscopy Report ---
[place] cholangiogram OR HISTORY: 74 years-old Female CHOLANGIOGRAM cholelithiasis COMPARISON: CT abdomen pelvis 11/11/2019 TECHNIQUE: 1 spot fluoroscopic image of the right upper quadrant abdomen was obtained utilizing 104.8 seconds fluoroscopy time FINDINGS: Cholecystectomy clips are noted. Cannulation of the cystic duct. No filling defects within the common bile duct. No significant biliary ductal dilation or contrast extravasation. Contrast flows into the proximal duodenum. IMPRESSION: Fluoroscopic assistance as above. Please see operative report for further details. ACT 112: Negative or not required by law. The above report was generated using voice recognition software. It may contain grammatical, syntax o r spelling errors. Electronically signed by: Lorenzo Mccoy M.D. 11/13/2019 9:23 AM
--- NOTE | 2019-11-13 09:47 | Post Operative Brief Note ---
Immediate Post Op Note v1 Date of Surgery November 13, 2019 Pre & Post Diagnosis Operation Date: 11/13/19 07:30 Pre-Op Diagnosis: Acute Cholecystitis Post-Op Diagnosis: Acute Cholecystitis I identified the patient and participated in the time-out.: Yes Procedure Operation Date: 11/13/19 07:30 Actual Procedures p Laparoscopic Cholecystectomy with Intraoperative Cholangiogram(Not Applicable) - Chucho Han MD Surgeon Chucho Han MD Elevator Attendant none Estimated Blood Loss 50 Findings Consistent with Post-Op Diagnosis
[2019-11-13] MEDS ORDERED: NEOSTIGMINE METHYLSULFATE 5 MG/5 ML SYR ONE (09:54)
[2019-11-13] MEDS ORDERED: LABETALOL HCL IV 5 MG/ML 20ML IV ONE (10:12)
[2019-11-13] MEDS ORDERED: ATROPINE SULFATE 0.1 MG/ML 10ML SYR IV PRN (10:23)
[2019-11-13] MEDS ORDERED: fentaNYL citrate 100 MCG/2 ML VIAL IV PRN (10:23)
[2019-11-13] MEDS ORDERED: ePHEDrine sulfate 50 MG/ML AMP IV PRN (10:23)
[2019-11-13] MEDS ORDERED: ONDANSETRON INJ 2 MG/ML 2 ML VIAL IV PRN (10:23)
[2019-11-13] MEDS ORDERED: LABETALOL HCL IV 5 MG/ML 20ML IV PRN (10:23)
--- NOTE | 2019-11-13 10:23 | Procedure Note ---
Procedure Note Date of Service November 13, 2019 arterial line placed in OR 8 prior to induction in preparation for lap medhat with Dr. Han. Initially evaluated both the left and right arm, but vasculature is non pulsatile and appears calcified. Brachial was visible, but due to such extensive distal disease decision made to evaluate the foot. Left foot dorsalis pedis artery is palpable and clean appear by ultrasound. Left foot prepped with chlorhexidine and draped with sterile towels. Site infiltrated with 1 cc of 1% lidocaine. 20 G angiocath placed under sterile technique utilizing sterile gloves, surgical hats and masks. Catheter threaded using seldinger technique with return of pulsatile, bright red blood. Site cove red with occlusive dressing and taped in place. Waveform consistent with correct arterial placement. After placement, toes of procedural foot had normal perfusion. Patient tolerated procedure well without complications. [place] removed by myself prior to leaving OR. Site held with pressure for 10 minutes and covered with pressure dressing. Dali Tran MD, PhD Anesthesiologist Coding
--- NOTE | 2019-11-13 10:38 | Anesthesiology Progress Note ---
Date of Service November 13, 2019 Anesthesia Post Procedure Vital Signs Vital Signs: Temp Pulse Pulse Pulse Resp BP BP 11/13/19 10:30 36.4 C L 60 18 142/59 H 11/13/19 10:20 61 18 114/51 L 11/13/19 10:10 65 18 180/93 H 11/13/19 10:00 36 C L 78 18 162/81 H 11/13/19 07:00 36.7 C 68 20 192/72 H 11/13/19 03:20 36.4 C L 64 20 168/69 H 11/13/19 01:00 66 11/12/19 22:30 36.8 C 67 18 175/80 H 11/12/19 18:00 36.8 C 74 18 169/87 H 11/12/19 17:24 72 151/71 H 11/12/19 15:28 74 Pulse Ox 11/13/19 10:30 100 11/13/19 10:20 100 11/13/19 10:10 100 11/13/19 10:00 100 11/13/19 07:00 94 11/13/19 03:20 96 11/13/19 01:00 11/12/19 22:30 95 11/12/19 18:00 94 11/12/19 17:24 11/12/19 15:28 Transfer of Care Handoff Completed per policy Notes Mental Status: alert / awake / arousable and participated in evaluation Patient Amnestic to Procedure: Yes Nausea / Vomiting: adequately controlled Pain: adequately controlled Airway Patency, RR, SpO2: stable & adequate BP & HR: stable & adequate Hydration State: stable & adequate Anesthetic Complications: no major complications apparent and Pt Satisfied with anesthetic care Notes: [place] site soft - normal perfusion to toes of left foot.
[2019-11-13] MEDS ORDERED: CLINDAMYCIN HCL 150 MG CAP PO PRN (11:14)
[2019-11-13] MEDS ORDERED: LACTATED RINGER'S 1,000 ML IV SCH (11:14)
[2019-11-13] MEDS ORDERED: LEVALBUTEROL HCL 1.25 MG/3 ML NEB INH PRN (11:14)
[2019-11-13] MEDS ORDERED: TRIAMCINOLONE ACET 0.1% CR 15 GM TUBE TOP PRN (11:14)
[2019-11-13] MEDS ORDERED: NITROGLYCERIN SL 0.4 MG/TAB TAB SL SCH (11:14)
[2019-11-13] MEDS ORDERED: Nursing to Pharmacy Communication ONE (12:18)
[2019-11-13] MEDS: predniSONE 5 MG TAB PO SCH (12:26)
[2019-11-13] MEDS: PANTOprazole 40 MG TAB PO SCH (12:26)
[2019-11-13] MEDS: THIAMINE HCL 100 MG TAB PO SCH (12:26)
[2019-11-13] MEDS: CEROVITE ADV FORMULA TAB PO SCH (12:26)
[2019-11-13] MEDS: VANCOMYCIN HCL 125 MG/2.5ML SOLN PO SCH (12:27)
[2019-11-13] MEDS: FOLIC ACID 1 MG TAB PO SCH (12:27)
[2019-11-13] MEDS: DULOXETINE HCL 60 MG CAP PO SCH (12:27)
[2019-11-13] MEDS: METOPROLOL TARTRATE 25 MG TAB PO SCH ×2 (12:27→22:17)
[2019-11-13] MEDS: RASPBERRY SYRUP 5 ML UDP PO SCH (12:27)
[2019-11-13] MEDS: INSULIN GLARGINE SOLOSTAR 100 UNITS/ML 3 ML PEN SC SCH (12:29)
--- NOTE | 2019-11-13 12:43 | Communication Note ---
Date of Service: November 13, 2019 Saw Sathish today. She is back from the operating room has had her gallbladder removed and is doing well and has had no further seizure-like activity but has not been out of bed and thus has not tested herself for orthostatic hypotension EEG was normal and an MRI scan has shown no evidence for any recent infarctions and only some low-grade leukoencephalopathy I continue to feel this was dehydration related orthostatic hypotension with convulsive syncope and we do not need to treated with anticonvulsants and neurology is going to sign off the case at this point Sathish Snow MD
--- NOTE | 2019-11-13 14:48 | Operative Report ---
DATE OF OPERATION: 11/13/2019 PREOPERATIVE DIAGNOSES: Acute cholecystitis with possible common bile duct stones. POSTOPERATIVE DIAGNOSES: Acute cholecystitis, no common bile duct stones. PROCEDURE PERFORMED: Laparoscopic cholecystectomy with intraoperative cholangiogram. SURGEON: Chucho Han MD. OUTSIDE SALES: None. ANESTHESIA: General endotracheal. ESTIMATED BLOOD LOSS: 50 mL. DRAINS: None. COMPLICATIONS: None. FINDINGS: Intraoperative cholangiogram performed using a ureteral catheter. Contrast was seen going into the distal common bile duct into the duodenum without any filling defects. The catheter was probably advanced slightly too far and there was minimal that went proximal to the radicles, but there was a radical seen, although most of the contrast went distally because the catheter was advanced a little too far. INDICATION FOR PROCEDURE: The patient is a 74-year-old female seen with a syncopal episode in the ED, underwent a workup showed gallstones and questionable inflammation. She also has had some elevated LFTs. The syncopal episode was worked up by Cardiology and Neurology shown to be likely orthostatic. She had intermittent abdominal pain consistent with previous episodes of cholecystitis. We discussed in detail the indications. We went over the risks of an open procedure, common bile duct injury, retained common bile duct stone, postop bile leak and bleeding. She understands this and wished to proceed. DESCRIPTION OF PROCEDURE: The patient was taken to the OR and underwent excellent general endotracheal anesthesia. Abdomen was prepped and draped in normal sterile fashion. Transverse supraumbilical incision was made. Dissection was taken down to identify anterior fascia. Two Vicryls were placed in either side of midline. The fascia was incised. A Neal trocar was then inserted. Good pneumoperitoneum was achieved to 15 mmHg pressure. An 11 subxiphoid and two 5 lateral ports were placed in normal fashion. She was placed in head up and rolled to the left. Gallbladder fundus was grasped and retracted superiorly. The neck was grasped and retracted laterally. The peritoneal attachments were taken down. Cystic duct and cystic artery were identified and skeletonized. There was also a cystic vein identified. A medial and lateral window was created between the gallbladder fossa and these structures showing these going right to the gallbladder. Once this critical view was seen, 2 clips were placed proximally in the cystic artery and the vein and 1 distally and these were both transected. With cystic duct going straight to the neck of the gallbladder, a clip was placed proximally and a small ductotomy was made. A cholangiogram catheter was placed in the right upper quadrant and 4 ureteral catheter was then advanced. This was advanced into the duct and secured with a clip. Saline was advanced and there was good flow. Via cholangiogram, catheter was then performed using contrast. There was good flow into the distal common bile duct and into the duodenum without any filling defects. The proximal radicals did not light up as well because the catheter was slightly advanced too far. Once this was seen, the cholangiogram catheter was removed. The gallbladder fundus was then grasped and the cystic duct was clipped 3 times distally and transected. Electrocautery hook was then used to remove the gallbladder from the gallbladder fossa. There was a good bit of inflammation. This was removed. There was some bleeding on Artur's capsule. The gallbladder was removed. There was some spillage of bile and stones. These were suctioned up as best could be. Gallbladder was sent for pathologic evaluation. Pneumoperitoneum was reestablished. The raw areas on the gallbladder fossa were then cauterized and then a Surgicel was placed with about total of 50 mL of blood loss. The ports were then removed. Pneumoperitoneum was decompressed. A 0 Vicryl was used to close the fascial defect. Vicryl was used to close the skin. One nylon was placed in one of the lateral incisions for some dermal bleeders. The incisions were covered with sterile dressing. She tolerated the procedure well with no complications. I attest to the content of the Intraoperative Record and any orders documented therein. Any exception s are noted below.
[2019-11-13 20:48] LABS: Hematocrit (blood only) 29.7 % (37-47); Hemoglobin 9.9 g/dL (12.0-16.0); Mean Corpuscular Hemoglobin 30.3 pg (25-34); Mean Corpuscular Hgb Conc 33.3 g/dL (32-36); Mean Corpuscular Volume 90.8 fL (80-100); Mean Platelet Volume 10.5 fL (7.4-10.4); Platelet Count 165 K/uL (130-400); RDW Standard Deviation 49.9 fL (36.4-46.3); Red Blood Count 3.27 M/uL (4.2-5.4); White Blood Count 9.02 K/uL (4.8-10.8)
[2019-11-13 21:00] LABS: Calcium 8.8 mg/dl (8.5-10.1); Creatinine Clr Calc Pharmacy 31.7 ml/min; Est GFR (African American) 47.5
--- NOTE | 2019-11-13 21:05 | Surgery Progress Note ---
Date of Service November 13, 2019 Assessment & Plan (1) S/P laparoscopic cholecystectomy: recheck H/H in AM clinically OK Hct 29.7 HR 110 and BP in normal limits Subjective Patient in bed alert and appropriate strawberry colored drainage consistent with irrigation and operative bleeding slowing from subxiphoid incision Hct 29.7 from 35 pre-op; dilutional and operative blood loss syncopal episode per hospitalist team recheck H/H in Am Physical Exam Constitutional: no acute distress Gastrointestinal (Abdomen): Inspection/Auscultation: abdomen not distended Percussion/Palpation: + abdomen tender (mild); abdomen not rigid incisions OK Results & Data Vital Signs (Past 12 Hours) Vital Signs Temp Pulse Pulse Pulse Resp BP BP 11/13/19 20:48 109 H 20 118/69 11/13/19 20:09 36.8 C 108 H 100/68 11/13/19 19:05 36.6 C 96 H 17 135/65 11/13/19 18:13 36.7 C 105 H 18 117/67 11/13/19 16:00 98 H 11/13/19 14:54 36.3 C L 95 H 18 104/70 11/13/19 14:20 36.3 C L 76 18 86/58 L 11/13/19 13:26 87 107/66 11/13/19 12:01 36.1 C L 71 18 88/44 L 11/13/19 11:34 36.1 C L 65 18 105/61 11/13/19 11:05 62 102/62 11/13/19 10:52 36.2 C L 59 L 18 112/73 11/13/19 10:30 36.4 C L 60 18 142/59 H 11/13/19 10:20 61 18 114/51 L 11/13/19 10:10 65 18 180/93 H 11/13/19 10:00 36 C L 78 18 162/81 H Pulse Ox 11/13/19 20:48 99 11/13/19 20:09 99 11/13/19 19:05 97 11/13/19 18:13 97 11/13/19 16:00 11/13/19 14:54 96 11/13/19 14:20 97 11/13/19 13:26 96 11/13/19 12:01 95 11/13/19 11:34 94 11/13/19 11:05 93 11/13/19 10:52 93 11/13/19 10:30 100 11/13/19 10:20 100 11/13/19 10:10 100 11/13/19 10:00 100
[2019-11-13] MEDS: LATANOPROST 0.005% OP SOLN 2.5 ML BTL OP SCH (21:07)
[2019-11-13] MEDS: HYDROXYCHLOROQUINE SULFATE 200 MG TAB PO SCH (21:07)
[2019-11-13] MEDS: MONTELUKAST SODIUM 10 MG TABLET PO SCH (21:07)
--- NOTE | 2019-11-13 22:11 | Communication Note ---
Date of Service: November 13, 2019 Made aware of 8 PM labs by RN Hg 9.9 from 12 serum K 5 serum crea 1.3 from 0.97 in AM AP Postop anemia (earlier incisional bleed noted as per RN) Postop ARF Trend H&H, transfuse PRBC if hemoglobin less than 8 and or for symptomatic anemia Appropriate to hold aspirin for now Baseline UA, monitor creatinine response to IVF Hold ACEI until creatinine back to baseline Will relay to AM provider.
[2019-11-13] MEDS ORDERED: SODIUM CHLORIDE 0.9% 500 ML IV ONE (22:12)
[2019-11-13] MEDS: ASPIRIN 81 MG ECTAB PO SCH (22:17)
[2019-11-13] MEDS: ERTAPENEM SODIUM 1,000 MG in SODIUM CHLORIDE 0.9% 50 ML IV SCH (22:25)
[2019-11-14] MEDS ORDERED: SODIUM CHLORIDE 0.9% 1000ML 1,000 ML IV SCH
[2019-11-14 00:34] LABS: Basophils # (auto) 0.01 K/uL (0-0.2); Basophils % (auto) 0.1 %; Hematocrit (blood only) 24.8 % (37-47); Hemoglobin 8.4 g/dL (12.0-16.0); Immature Granulocytes # (auto) 0.02 K/uL (0.00-0.02); Immature Granulocytes % (auto) 0.3 %; Lymphocytes # (auto) 1.05 K/uL (1.2-3.4); Lymphocytes % (auto) 13.2 %; Mean Corpuscular Hemoglobin 30.7 pg (25-34); Mean Corpuscular Hgb Conc 33.9 g/dL (32-36); Mean Corpuscular Volume 90.5 fL (80-100); Mean Platelet Volume 10.3 fL (7.4-10.4); Monocytes # (auto) 0.86 K/uL (0.11-0.59); Monocytes % (auto) 10.8 %; Neutrophils # (auto) 6.04 K/uL (1.4-6.5); Neutrophils % (auto) 75.6 %; Platelet Count 141 K/uL (130-400); RDW Coefficient of Variation 14.9 % (11.5-14.5); RDW Standard Deviation 49.7 fL (36.4-46.3); Red Blood Count 2.74 M/uL (4.2-5.4); White Blood Count 7.98 K/uL (4.8-10.8)
[2019-11-14 00:55] LABS: BUN Creatinine Ratio 22.2 (10-20); Creatinine Clr Calc Pharmacy 37.4 ml/min; Est GFR (African American) 58.1; Est GFR (Non-African American) 50.1; Magnesium 1.9 mg/dl (1.8-2.4); Potassium 4.7 mmol/L (3.5-5.1)
[2019-11-14] MEDS ORDERED: SODIUM CHLORIDE 0.9% 1000ML 1,000 ML IV ONE (01:14)
[2019-11-14 07:18] LABS: Hematocrit (blood only) 23.2 % (37-47); Mean Corpuscular Hemoglobin 31.1 pg (25-34); Mean Corpuscular Hgb Conc 34.5 g/dL (32-36); Mean Corpuscular Volume 90.3 fL (80-100); Mean Platelet Volume 10.2 fL (7.4-10.4); Platelet Count 122 K/uL (130-400); RDW Coefficient of Variation 14.9 % (11.5-14.5); Red Blood Count 2.57 M/uL (4.2-5.4); White Blood Count 6.83 K/uL (4.8-10.8)
--- NOTE | 2019-11-14 07:43 | Anesthesiology Progress Note ---
Date of Service November 14, 2019 Anesthesia Post Procedure Vital Signs Vital Signs: Temp Pulse Pulse Pulse Pulse Resp BP 11/14/19 07:00 36.8 C 80 18 11/14/19 03:25 36.6 C 85 18 132/64 11/13/19 23:10 36.9 C 89 18 146/73 H 11/13/19 22:22 36.7 C 93 H 18 150/86 H 11/13/19 22:20 92 H 11/13/19 20:48 109 H 20 11/13/19 20:09 36.8 C 108 H 11/13/19 19:05 36.6 C 96 H 17 135/65 11/13/19 18:13 36.7 C 105 H 18 117/67 11/13/19 16:00 98 H 11/13/19 14:54 36.3 C L 95 H 18 104/70 11/13/19 14:20 36.3 C L 76 18 11/13/19 13:26 87 11/13/19 12:01 36.1 C L 71 18 11/13/19 11:34 36.1 C L 65 18 11/13/19 11:05 62 11/13/19 10:52 36.2 C L 59 L 18 11/13/19 10:30 36.4 C L 60 18 11/13/19 10:20 61 18 11/13/19 10:10 65 18 11/13/19 10:00 36 C L 78 18 BP Pulse Ox 11/14/19 07:00 149/68 H 94 11/14/19 03:25 93 11/13/19 23:10 96 11/13/19 22:22 95 11/13/19 22:20 11/13/19 20:48 118/69 99 11/13/19 20:09 100/68 99 11/13/19 19:05 97 11/13/19 18:13 97 11/13/19 16:00 11/13/19 14:54 96 11/13/19 14:20 86/58 L 97 11/13/19 13:26 107/66 96 11/13/19 12:01 88/44 L 95 11/13/19 11:34 105/61 94 11/13/19 11:05 102/62 93 11/13/19 10:52 112/73 93 11/13/19 10:30 142/59 H 100 11/13/19 10:20 114/51 L 100 11/13/19 10:10 180/93 H 100 11/13/19 10:00 162/81 H 100 Notes Mental Status: participated in evaluation (pt was confused; she thought that her laparoscopic cholecystectomy was rescheduled for today. When talking with her nurse she stated she had already had her gallbladder taken out) Nausea / Vomiting: adequately controlled Pain: adequately controlled Airway Patency, RR, SpO2: stable & adequate BP & HR: stable & adequate Hydration State: stable & adequate Anesthetic Complications: no major complications apparent
[2019-11-14] MEDS: FLUTICASONE/VILANTEROL 100/25MCG 14 PUFFS/INHALER INH SCH (08:40)
[2019-11-14] MEDS: DULOXETINE HCL 60 MG CAP PO SCH (08:40)
[2019-11-14] MEDS: FOLIC ACID 1 MG TAB PO SCH (08:41)
[2019-11-14] MEDS: predniSONE 5 MG TAB PO SCH (08:41)
[2019-11-14] MEDS: METOPROLOL TARTRATE 25 MG TAB PO SCH ×2 (08:42→20:02)
[2019-11-14] MEDS: CEROVITE ADV FORMULA TAB PO SCH (08:42)
[2019-11-14] MEDS: PANTOprazole 40 MG TAB PO SCH (08:43)
[2019-11-14] MEDS: THIAMINE HCL 100 MG TAB PO SCH (08:43)
[2019-11-14] MEDS: RASPBERRY SYRUP 5 ML UDP PO SCH (08:45)
[2019-11-14] MEDS: INSULIN GLARGINE SOLOSTAR 100 UNITS/ML 3 ML PEN SC SCH (08:46)
[2019-11-14] MEDS: VANCOMYCIN HCL 125 MG/2.5ML SOLN PO SCH (08:48)
[2019-11-14] MEDS: INSULIN ASPART 100 UNITS/ML 3 ML PEN SC SCH ×4 (08:58→21:03)
--- NOTE | 2019-11-14 10:44 | Hospitalist Progress Note ---
Date of Service November 14, 2019 Assessment & Plan (1) Syncope: Secondary to possible orthostasis given low BP upon arrival at the ER, abdominal pain from possible cholecystitis rule out CBD obstruction given abnormal LFTs, overt sepsis possibly downplayed by chronic steroid Rx Rule out new onset seizure given patient account of events Chronic diastolic heart failure as per records (EF 55 to 59%, DSE 2019), patient on the dry side CAD as per records Hypertension, borderline BP upon arrival at the ER currently elevated Troponin elevation possibly secondary to above Medical telemetry for syncopal event, troponin elevation - on my review of system this AM, pt reported on and off chest pain in the past week or so - given hx of poss. LOC, trop elevation and plan for poss. surgery tmrw, will order echo and consult cardiology for further eval - cardiology evaluated the pt, hx of CAD, chronic elev. trop., reported hx of chest pain seems MSK in origin, pt is moderate periop. risk, no intervention that would lower this risk Poss. Cholecystitis Surgery consult RE possible cholecystitis Pt is now s/p lap cholecystectomy (11/13/2019), tolerated procedure well but had hemorrhage later in the day, hemorrhage stopped, but is anemic Ertapenem for possible cholecystitis Ertapenem switch to Keflex and Flagyl Acute blood loss/ Post surgical anemia - w/ presyncopal episode - will transfuse 1 unit of pRBC as Hgb <8 and pt symptomatic - cont. to monitor Elevated LFTs GI consult RE abnormal LFTs in the setting of possible cholecystitis (ER provider already in touch with Dr. 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 seizure-like activity (observed by ) Seizure precautions, Ativan as needed, hold home Tramadol until seizure disorder ruled out EEG, MRI brain for possible seizure work-up Neurology consult RE possible seizure activity Per neurology - most likely presyncope event from orthostasis DM 2 diet-controlled, well-controlled as of recent outpatient hemoglobin A1c of 5.23 July 2019 Basal insulin, ISS BG goal [id number], update hemoglobin A1c Electrolyte imbalance - monitor and replete, K, Mg, Phos as needed - goal K>4, goal Mg>2 asthma/COPD as per records, pulmonary status at baseline rheumatoid arthritis on chronic steroid Rx DVT prophylaxis. SCDs RE possible surgery Full code Admission and Anticipated Discharge Date Admission Date: November 11, 2019 Subjective Pt s/p lap cholecystectomy, tolerated procedure well but later yesterday dev eloped hemorrhage from the surgical site, also poss. presyncopal episode. This AM bleeding well controlled but pt is anemic, plan to transfuse 1 unit of pRBC. Currently denies incr. abd. pain, chest pain, shortness of breath, incr. abd. pain, nausea or vomiting. Has some abd. pain when being turned. Answers most questions appropriately. Review of Systems Review of Systems: All systems reviewed & are unremarkable except as noted in HPI & below Constitutional: no fever and no chills Respiratory: no cough and no dyspnea Cardiovascular: no chest pain and no palpitations Gastrointestinal: + abdominal pain (some post. surgery); no nausea and no vomiting Physical Exam Physical Exam: GENERAL: elderly female lying in bed, in NAD HEENT: NC/AT, EOMI, PERRL NECK : Supple, no tenderness CHEST : CTAB, no wheezing, rhonchi, crackles HEART : RRR, no obvious murmurs ABDOMEN: + bowel sounds, soft, obese, some distention, mild RUQ tenderness, few surg. incisions, dry clean EXTREMITIES : no LE edema b/l, no LE tenderness, moves extremities spontaneously SKIN: warm, dry NEUROLOGIC : alert and oriented,answers questions appropriately, no facial asymmetry, speech fluent, moves extremities spontaneously Results & Data ([facility]) Vital Signs (Past 12 Hours) Vital Signs Temp Pulse Pulse Resp BP BP Pulse Ox 11/14/19 09:36 78 11/14/19 07:00 36.8 C 80 18 149/68 H 94 11/14/19 03:25 36.6 C 85 18 132/64 93 11/13/19 23:10 36.9 C 89 18 146/73 H 96 Laboratory Results 11/14/19 11/14/19 11/14/19 Range/Units 07:30 06:54 06:54 WBC 6.83 (4.8-10.8) K/uL RBC 2.57 L (4.2-5.4) M/uL Hgb 8.0 L (12.0-16.0) g/dL Hct 23.2 L (37-47) % MCV 90.3 (80-100) fL MCH 31.1 (25-34) pg MCHC 34.5 (32-36) g/dL RDW Std Deviation 49.0 H (36.4-46.3) fL RDW Coeff of Xochitl 14.9 H (11.5-14.5) % Plt Count 122 L (130-400) K/uL MPV 10.2 (7.4-10.4) fL Immature Gran % (Auto) % Neut % (Auto) % Lymph % (Auto) % Hanson % (Auto) % Eos % (Auto) % Baso % (Auto) % Immature Gran # (Auto) (0.00-0.02) K/uL Neut # (Auto) (1.4-6.5) K/uL Lymph # (Auto) (1.2-3.4) K/uL Hanson # (Auto) (0.11-0.59) K/uL Eos # (Auto) (0-0.5) K/uL Baso # (Auto) (0-0.2) K/uL Sodium (136-145) mmol/L Potassium (3.5-5.1) mmol/L Chloride (98-107) mmol/L Carbon Dioxide (21-32) mmol/L Anion Gap (3-11) BUN (7-18) mg/dl Creatinine (0.6-1.2) mg/dl Est Cr Clr Drug Dosing ml/min Est GFR ( Amer) Est GFR (Non-Af Amer) BUN/Creatinine Ratio (10-20) Glucose (70-99) mg/dl POC Glucose 100 H (70-99) mg/dl Fasting Glucose (70-99) mg/dl Lactate (0.4-2.0) mmol/L Calcium (8.5-10.1) mg/dl Magnesium (1.8-2.4) mg/dl Blood Type A Negative Antibody Screen NEGATIVE 11/14/19 11/14/19 11/14/19 Range/Units 00:18 00:18 00:18 WBC 7.98 (4.8-10.8) K/uL RBC 2.74 L (4.2-5.4) M/uL Hgb 8.4 L (12.0-16.0) g/dL Hct 24.8 L (37-47) % MCV 90.5 (80-100) fL MCH 30.7 (25-34) pg MCHC 33.9 (32-36) g/dL RDW Std Deviation 49.7 H (36.4-46.3) fL RDW Coeff of Xochitl 14.9 H (11.5-14.5) % Plt Count 141 (130-400) K/uL MPV 10.3 (7.4-10.4) fL Immature Gran % (Auto) 0.3 % Neut % (Auto) 75.6 % Lymph % (Auto) 13.2 % Hanson % (Auto) 10.8 % Eos % (Auto) 0.0 % Baso % (Auto) 0.1 % Immature Gran # (Auto) 0.02 (0.00-0.02) K/uL Neut # (Auto) 6.04 (1.4-6.5) K/uL Lymph # (Auto) 1.05 L (1.2-3.4) K/uL Hanson # (Auto) 0.86 H (0.11-0.59) K/uL Eos # (Auto) 0.00 (0-0.5) K/uL Baso # (Auto) 0.01 (0-0.2) K/uL Sodium 138 (136-145) mmol/L Potassium 4.7 (3.5-5.1) mmol/L Chloride 108 H (98-107) mmol/L Carbon Dioxide 23 (21-32) mmol/L Anion Gap 7.0 (3-11) BUN 24 H (7-18) mg/dl Creatinine 1.10 (0.6-1.2) mg/dl Est Cr Clr Drug Dosing 37.4 ml/min Est GFR ( Amer) 58.1 Est GFR (Non-Af Amer) 50.1 BUN/Creatinine Ratio 22.2 H (10-20) Glucose 128 H (70-99) mg/dl POC Glucose (70-99) mg/dl Fasting Glucose (70-99) mg/dl Lactate 1.9 (0.4-2.0) mmol/L Calcium 8.0 L (8.5-10.1) mg/dl Magnesium 1.9 (1.8-2.4) mg/dl Blood Type Antibody Screen 11/13/19 11/13/19 11/13/19 Range/Units 20:32 20:32 20:00 WBC 9.02 (4.8-10.8) K/uL RBC 3.27 L (4.2-5.4) M/uL Hgb 9.9 L (12.0-16.0) g/dL Hct 29.7 L (37-47) % MCV 90.8 (80-100) fL MCH 30.3 (25-34) pg MCHC 33.3 (32-36) g/dL RDW Std Deviation 49.9 H (36.4-46.3) fL RDW Coeff of Xochitl 15.0 H (11.5-14.5) % Plt Count 165 D (130-400) K/uL MPV 10.5 H (7.4-10.4) fL Immature Gran % (Auto) % Neut % (Auto) % Lymph % (Auto) % Hanson % (Auto) % Eos % (Auto) % Baso % (Auto) % Immature Gran # (Auto) (0.00-0.02) K/uL Neut # (Auto) (1.4-6.5) K/uL Lymph # (Auto) (1.2-3.4) K/uL Hanson # (Auto) (0.11-0.59) K/uL Eos # (Auto) (0-0.5) K/uL Baso # (Auto) (0-0.2) K/uL Sodium 137 (136-145) mmol/L Potassium 5.0 D (3.5-5.1) mmol/L Chloride 106 (98-107) mmol/L Carbon Dioxide 21 (21-32) mmol/L Anion Gap 10.0 (3-11) BUN 28 H (7-18) mg/dl Creatinine 1.30 H D (0.6-1.2) mg/dl Est Cr Clr Drug Dosing 31.7 ml/min Est GFR ( Amer) 47.5 Est GFR (Non-Af Amer) 41.0 BUN/Creatinine Ratio (10-20) Glucose (70-99) mg/dl POC Glucose 224 H (70-99) mg/dl Fasting Glucose 193 H (70-99) mg/dl Lactate (0.4-2.0) mmol/L Calcium 8.8 (8.5-10.1) mg/dl Magnesium (1.8-2.4) mg/dl Blood Type Antibody Screen 11/13/19 11/13/19 11/13/19 Range/Units 16:48 14:10 11:44 WBC (4.8-10.8) K/uL RBC (4.2-5.4) M/uL Hgb (12.0-16.0) g/dL Hct (37-47) % MCV (80-100) fL MCH (25-34) pg MCHC (32-36) g/dL RDW Std Deviation (36.4-46.3) fL RDW Coeff of Xochitl (11.5-14.5) % Plt Count (130-400) K/uL MPV (7.4-10.4) fL Immature Gran % (Auto) % Neut % (Auto) % Lymph % (Auto) % Hanson % (Auto) % Eos % (Auto) % Baso % (Auto) % Immature Gran # (Auto) (0.00-0.02) K/uL Neut # (Auto) (1.4-6.5) K/uL Lymph # (Auto) (1.2-3.4) K/uL Hanson # (Auto) (0.11-0.59) K/uL Eos # (Auto) (0-0.5) K/uL Baso # (Auto) (0-0.2) K/uL Sodium (136-145) mmol/L Potassium (3.5-5.1) mmol/L Chloride (98-107) mmol/L Carbon Dioxide (21-32) mmol/L Anion Gap (3-11) BUN (7-18) mg/dl Creatinine (0.6-1.2) mg/dl Est Cr Clr Drug Dosing ml/min Est GFR ( Amer) Est GFR (Non-Af Amer) BUN/Creatinine Ratio (10-20) Glucose (70-99) mg/dl POC Glucose 168 H 138 H 139 H (70-99) mg/dl Fasting Glucose (70-99) mg/dl Lactate (0.4-2.0) mmol/L Calcium (8.5-10.1) mg/dl Magnesium (1.8-2.4) mg/dl Blood Type Antibody Screen Medications Administered Current Inpatient Medications Acetaminophen (Tylenol) 325 mg PO Q6H PRN PRN Reason: Pain or Fever Stop: 03/30/20 01:17 Aspirin (Ecotrin Ectab) 81 mg PO HS K[facility] Stop: 12/12/19 20:59 Last Admin: 11/13/19 22:17 Dose: Not Given Documented by: Dextrose (Dextrose 50%) 25 - 50 ml IV UD PRN; Protocol PRN Reason: Hypoglycemia Protocol Stop: 12/12/19 04:22 Last Admin: 11/13/19 06:07 Dose: 25 ml Documented by: Duloxetine HCl (Cymbalta) 60 mg PO DAILY K[facility]LA Stop: 12/12/19 08:59 Last Admin: 11/14/19 08:40 Dose: 60 mg Documented by: Ertapenem (Consult) 1 ea N/A UD PRN PRN Reason: Consult Stop: 12/12/19 03:29 Fluticasone/Vilanterol (Breo Ellipta 100/25 Mcg Inh) 1 puffs INH DAILY KARLA Stop: 12/14/19 08:59 Last Admin: 11/14/19 08:40 Dose: 1 puffs Documented by: Folic Acid (Folvite) 1 mg PO QAM [facility] Stop: 12/12/19 08:59 Last Admin: 11/14/19 08:41 Dose: 1 mg Documented by: Gadobutrol (Gadavist 65ml) 5.5 ml IV ONCE PRN PRN Reason: Interaction Checking Stop: 11/16/19 15:50 Last Admin: 11/12/19 15:52 Dose: 5.5 ml Documented by: Glucagon (Glucagen) 1 mg SQ UD PRN; Protocol PRN Reason: Hypoglycemia Protocol Stop: 12/12/19 04:22 Glucose (Dex4 Glucose) 4 - 8 tabs PO UD PRN; Protocol PRN Reason: Hypoglycemia Protocol Stop: 12/12/19 04:22 Glucose (Glucose 40%) 15 - 30 gm PO UD PRN; Protocol PRN Reason: Hypoglycemia Protocol Stop: 12/12/19 04:22 Hydromorphone HCl (Dilaudid) 0.25 mg IV Q3H PRN PRN Reason: Pain Stop: 11/26/19 01:17 Hydroxychloroquine Sulfate (Plaquenil) 200 mg PO HS K[facility]LA Stop: 12/12/19 20:59 Last Admin: 11/13/19 21:07 Dose: 200 mg Documented by: Promethazine HCl 12.5 mg/ (Sodium Chloride) 50.5 mls @ 202 mls/hr IV Q6H PRN PRN Reason: Nausea And Vomiting Stop: 12/12/19 01:17 Lorazepam (Ativan) 1 mg in 2 mls @ 0.5 mls/min IV Q10M PRN PRN Reason: seizures Stop: 12/12/19 01:17 Ertapenem 1,000 mg/ Sodium (Chloride) 60 mls @ 100 mls/hr IV Q24H [facility]; Protocol Stop: 11/21/19 21:59 Last Infusion: 11/13/19 23:02 Dose: Infused Documented by: Sodium Chloride (Nss 1000ml) 1,000 mls @ 60 mls/hr IV .[id number] ONE Stop: 11/14/19 17:53 Last Admin: 11/14/19 02:09 Dose: 60 mls/hr Documented by: Insulin Aspart (Novolog Flexpen) [address] [facility] Stop: 12/13/19 12:29 Last Admin: 11/14/19 08:58 Dose: Not Given Documented by: Insulin Glargine (Lantus Solostar Pen) [address] [facility] Stop: 12/13/19 08:59 Last Admin: 11/14/19 08:46 Dose: 5 units Documented by: Latanoprost (Xalatan Oph) [address] [facility] Stop: 12/12/19 20:59 Last Admin: 11/13/19 21:07 Dose: 1 drops Documented by: Levalbuterol HCl (Xopenex 1.25mg/3ml Neb) 1.25 mg INH Q4 PRN PRN Reason: Shortness Of Breath Stop: 12/13/19 11:13 Lisinopril (Zestril) 2.[address] [facility] Stop: 12/13/19 08:59 Last Admin: 11/13/19 12:26 Dose: 2.5 mg Documented by: Metoprolol Tartrate (Lopressor) [address] [facility] Stop: 12/12/19 08:59 Last Admin: 11/14/19 08:42 Dose: 25 mg Documented by: Miscellaneous (Carbohydrates For Hypoglycemia) 15 - 30 gm PO UD PRN PRN Reason: Hypoglycemia Protocol Stop: 12/12/19 04:22 Montelukast Sodium (Singulair) [address] [facility] Stop: 12/12/19 20:59 Last Admin: 11/13/19 21:07 Dose: 10 mg Documented by: Multivitamins/Minerals (Multivitamin W/ Minerals Tab) 1 tab PO QAM [facility] Stop: 12/12/19 08:59 Last Admin: 11/14/19 08:42 Dose: 1 tab Documented by: Nitroglycerin (Nitrostat) 0.[address] [facility] Stop: 12/13/19 11:13 Oxycodone HCl (Roxicodone Immediate Rel) 5 mg PO Q4H PRN PRN Reason: Pain Stop: 11/26/19 01:17 [facility]oprazole Sodium ([facility]ix) [facility] Stop: 12/12/19 08:59 Last Admin: 11/14/19 08:43 Dose: 40 mg Documented by: Prednisone (Prednisone) [address] [facility] Stop: 12/12/19 08:59 Last Admin: 11/14/19 08:41 Dose: 5 mg Documented by: Raspberry (Raspberry) [address] [facility] Stop: 11/26/19 08:59 Last Admin: 11/14/19 08:45 Dose: 5 ml Documented by: Thiamine HCl (Vitamin B-1) [address] [facility] Stop: 12/12/19 08:59 Last Admin: 11/14/19 08:43 Dose: 50 mg Documented by: Triamcinolone Acetonide (Kenalog 0.1%) 1 appln TOP BID PRN PRN Reason: Rash Stop: 12/13/19 11:13 Vancomycin HCl (Vancomycin Hcl) [address] [facility] Stop: 11/26/19 08:59 Last Admin: 11/14/19 08:48 Dose: 125 mg Documented by:
--- NOTE | 2019-11-14 11:52 | Surgery Progress Note ---
Date of Service November 14, 2019 Assessment & Plan (1) S/P laparoscopic cholecystectomy: POD # 1 s/p laparoscopic cholecystectomy - vitals stable, afebrile, Tachycardic in upper 90's low 100's last evening but 60's today. BP 125/72. - Hemoglobin 9.9 --> 8.4 --> 8.0 --> 7.7, feeling weak (had some intraoperative bleeding at cholecystectomy bed) - pain controlled Plan: Transfuse as needed, per medicine if hemoglobin < 8.0 Monitor H&H Hold any anticoagulation and baby aspirin Okay to advance diet as tolerated Continue current medical management Dr. Hughes was present during examination and agrees with above. Subjective states she is feeling weak today has not been out of bed since surgery no nausea or vomiting pain moderate but controlled at bedside, states she is somewhat confused at times, thinks she is at home. no chest pain/shortness of breath tolerated clear liquids this am Physical Exam Constitutional: WD/WN, vitals as above no acute distress Respiratory: normal respiratory effort; no respiratory distress, no labored breathing and no retractions Gastrointestinal (Abdomen): Inspection/Auscultation: abdomen normal to inspection; abdomen not distended Percussion/Palpation: abdomen soft; abdomen nontender, no guarding and abdomen not rigid Skin: no rashes, warm and dry + incision (covered with steri strips, upper midline with dressing with dry blood) Psychiatric: Orientation: alert Results & Data Vital Signs (Past 12 Hours) Vital Signs Temp Pulse Pulse Resp BP BP Pulse Ox 11/14/19 11:16 36.6 C 66 18 125/72 91 11/14/19 09:36 78 11/14/19 07:00 36.8 C 80 18 149/68 H 94 11/14/19 03:25 36.6 C 85 18 132/64 93 Laboratory Results 11/14/19 11/14/19 11/14/19 Range/Units 11:53 11:37 07:30 WBC (4.8-10.8) K/uL RBC (4.2-5.4) M/uL Hgb 7.7 L (12.0-16.0) g/dL Hct 22.7 L (37-47) % MCV (80-100) fL MCH (25-34) pg MCHC (32-36) g/dL RDW Std Deviation (36.4-46.3) fL RDW Coeff of Xochitl (11.5-14.5) % Plt Count (130-400) K/uL MPV (7.4-10.4) fL Immature Gran % (Auto) % Neut % (Auto) % Lymph % (Auto) % Jackson % (Auto) % Eos % (Auto) % Baso % (Auto) % Immature Gran # (Auto) (0.00-0.02) K/uL Neut # (Auto) (1.4-6.5) K/uL Lymph # (Auto) (1.2-3.4) K/uL Jackson # (Auto) (0.11-0.59) K/uL Eos # (Auto) (0-0.5) K/uL Baso # (Auto) (0-0.2) K/uL Sodium (136-145) mmol/L Potassium (3.5-5.1) mmol/L Chloride (98-107) mmol/L Carbon Dioxide (21-32) mmol/L Anion Gap (3-11) BUN (7-18) mg/dl Creatinine (0.6-1.2) mg/dl Est Cr Clr Drug Dosing ml/min Est GFR ( Amer) Est GFR (Non-Af Amer) BUN/Creatinine Ratio (10-20) Glucose (70-99) mg/dl POC Glucose 119 H 100 H (70-99) mg/dl Fasting Glucose (70-99) mg/dl Lactate (0.4-2.0) mmol/L Calcium (8.5-10.1) mg/dl Magnesium (1.8-2.4) mg/dl Blood Type Antibody Screen 11/14/19 11/14/19 11/14/19 Range/Units 06:54 06:54 00:18 WBC 6.83 (4.8-10.8) K/uL RBC 2.57 L (4.2-5.4) M/uL Hgb 8.0 L (12.0-16.0) g/dL Hct 23.2 L (37-47) % MCV 90.3 (80-100) fL MCH 31.1 (25-34) pg MCHC 34.5 (32-36) g/dL RDW Std Deviation 49.0 H (36.4-46.3) fL RDW Coeff of Xochitl 14.9 H (11.5-14.5) % Plt Count 122 L (130-400) K/uL MPV 10.2 (7.4-10.4) fL Immature Gran % (Auto) % Neut % (Auto) % Lymph % (Auto) % Jackson % (Auto) % Eos % (Auto) % Baso % (Auto) % Immature Gran # (Auto) (0.00-0.02) K/uL Neut # (Auto) (1.4-6.5) K/uL Lymph # (Auto) (1.2-3.4) K/uL Jackson # (Auto) (0.11-0.59) K/uL Eos # (Auto) (0-0.5) K/uL Baso # (Auto) (0-0.2) K/uL Sodium (136-145) mmol/L Potassium (3.5-5.1) mmol/L Chloride (98-107) mmol/L Carbon Dioxide (21-32) mmol/L Anion Gap (3-11) BUN (7-18) mg/dl Creatinine (0.6-1.2) mg/dl Est Cr Clr Drug Dosing ml/min Est GFR ( Amer) Est GFR (Non-Af Amer) BUN/Creatinine Ratio (10-20) Glucose (70-99) mg/dl POC Glucose (70-99) mg/dl Fasting Glucose (70-99) mg/dl Lactate 1.9 (0.4-2.0) mmol/L Calcium (8.5-10.1) mg/dl Magnesium (1.8-2.4) mg/dl Blood Type A Negative Antibody Screen NEGATIVE 11/14/19 11/14/19 11/13/19 Range/Units 00:18 00:18 20:32 WBC 7.98 (4.8-10.8) K/uL RBC 2.74 L (4.2-5.4) M/uL Hgb 8.4 L (12.0-16.0) g/dL Hct 24.8 L (37-47) % MCV 90.5 (80-100) fL MCH 30.7 (25-34) pg MCHC 33.9 (32-36) g/dL RDW Std Deviation 49.7 H (36.4-46.3) fL RDW Coeff of Xochitl 14.9 H (11.5-14.5) % Plt Count 141 (130-400) K/uL MPV 10.3 (7.4-10.4) fL Immature Gran % (Auto) 0.3 % Neut % (Auto) 75.6 % Lymph % (Auto) 13.2 % Jackson % (Auto) 10.8 % Eos % (Auto) 0.0 % Baso % (Auto) 0.1 % Immature Gran # (Auto) 0.02 (0.00-0.02) K/uL Neut # (Auto) 6.04 (1.4-6.5) K/uL Lymph # (Auto) 1.05 L (1.2-3.4) K/uL Jackson # (Auto) 0.86 H (0.11-0.59) K/uL Eos # (Auto) 0.00 (0-0.5) K/uL Baso # (Auto) 0.01 (0-0.2) K/uL Sodium 138 137 (136-145) mmol/L Potassium 4.7 5.0 D (3.5-5.1) mmol/L Chloride 108 H 106 (98-107) mmol/L Carbon Dioxide 23 21 (21-32) mmol/L Anion Gap 7.0 10.0 (3-11) BUN 24 H 28 H (7-18) mg/dl Creatinine 1.10 1.30 H D (0.6-1.2) mg/dl Est Cr Clr Drug Dosing 37.4 31.7 ml/min Est GFR ( Amer) 58.1 47.5 Est GFR (Non-Af Amer) 50.1 41.0 BUN/Creatinine Ratio 22.2 H (10-20) Glucose 128 H (70-99) mg/dl POC Glucose (70-99) mg/dl Fasting Glucose 193 H (70-99) mg/dl Lactate (0.4-2.0) mmol/L Calcium 8.0 L 8.8 (8.5-10.1) mg/dl Magnesium 1.9 (1.8-2.4) mg/dl Blood Type Antibody Screen 11/13/19 11/13/19 11/13/19 Range/Units 20:32 20:00 16:48 WBC 9.02 (4.8-10.8) K/uL RBC 3.27 L (4.2-5.4) M/uL Hgb 9.9 L (12.0-16.0) g/dL Hct 29.7 L (37-47) % MCV 90.8 (80-100) fL MCH 30.3 (25-34) pg MCHC 33.3 (32-36) g/dL RDW Std Deviation 49.9 H (36.4-46.3) fL RDW Coeff of Xochitl 15.0 H (11.5-14.5) % Plt Count 165 D (130-400) K/uL MPV 10.5 H (7.4-10.4) fL Immature Gran % (Auto) % Neut % (Auto) % Lymph % (Auto) % Jackson % (Auto) % Eos % (Auto) % Baso % (Auto) % Immature Gran # (Auto) (0.00-0.02) K/uL Neut # (Auto) (1.4-6.5) K/uL Lymph # (Auto) (1.2-3.4) K/uL Jackson # (Auto) (0.11-0.59) K/uL Eos # (Auto) (0-0.5) K/uL Baso # (Auto) (0-0.2) K/uL Sodium (136-145) mmol/L Potassium (3.5-5.1) mmol/L Chloride (98-107) mmol/L Carbon Dioxide (21-32) mmol/L Anion Gap (3-11) BUN (7-18) mg/dl Creatinine (0.6-1.2) mg/dl Est Cr Clr Drug Dosing ml/min Est GFR ( Amer) Est GFR (Non-Af Amer) BUN/Creatinine Ratio (10-20) Glucose (70-99) mg/dl POC Glucose 224 H 168 H (70-99) mg/dl Fasting Glucose (70-99) mg/dl Lactate (0.4-2.0) mmol/L Calcium (8.5-10.1) mg/dl Magnesium (1.8-2.4) mg/dl Blood Type Antibody Screen 11/13/19 Range/Units 14:10 WBC (4.8-10.8) K/uL RBC (4.2-5.4) M/uL Hgb (12.0-16.0) g/dL Hct (37-47) % MCV (80-100) fL MCH (25-34) pg MCHC (32-36) g/dL RDW Std Deviation (36.4-46.3) fL RDW Coeff of Xochitl (11.5-14.5) % Plt Count (130-400) K/uL MPV (7.4-10.4) fL Immature Gran % (Auto) % Neut % (Auto) % Lymph % (Auto) % Jackson % (Auto) % Eos % (Auto) % Baso % (Auto) % Immature Gran # (Auto) (0.00-0.02) K/uL Neut # (Auto) (1.4-6.5) K/uL Lymph # (Auto) (1.2-3.4) K/uL Jackson # (Auto) (0.11-0.59) K/uL Eos # (Auto) (0-0.5) K/uL Baso # (Auto) (0-0.2) K/uL Sodium (136-145) mmol/L Potassium (3.5-5.1) mmol/L Chloride (98-107) mmol/L Carbon Dioxide (21-32) mmol/L Anion Gap (3-11) BUN (7-18) mg/dl Creatinine (0.6-1.2) mg/dl Est Cr Clr Drug Dosing ml/min Est GFR ( Amer) Est GFR (Non-Af Amer) BUN/Creatinine Ratio (10-20) Glucose (70-99) mg/dl POC Glucose 138 H (70-99) mg/dl Fasting Glucose (70-99) mg/dl Lactate (0.4-2.0) mmol/L Calcium (8.5-10.1) mg/dl Magnesium (1.8-2.4) mg/dl Blood Type Antibody Screen
[2019-11-14 12:06] LABS: Hematocrit (blood only) 22.7 % (37-47); Hemoglobin 7.7 g/dL (12.0-16.0)
[2019-11-14] MEDS ORDERED: SODIUM CHLORIDE 0.9% 250 ML IV PRN ×2 (12:56→13:35)
[2019-11-14 18:16] LABS: Appearance Urine Clear (Clear); Bilirubin Urine Negative (Negative); Blood Urine Negative (Negative); Color Urine Yellow; Glucose Urine UA Negative (Negative); Ketones Urine Negative (Negative); Leukocyte Esterase Urine Negative (Negative); Nitrite Urine Negative (Negative); Protein Urine Negative (Negative); Specific Gravity Urine 1.014 (1.000-1.030); Urobilinogen Urine Negative (Negative)
[2019-11-14 18:18] LABS: Hematocrit (blood only) 27.9 % (37-47); Hemoglobin 9.3 g/dL (12.0-16.0)
[2019-11-14] MEDS: cephALEXin 500 MG CAP PO SCH (20:02)
[2019-11-14] MEDS: metroNIDAZOLE 500 MG TAB PO SCH (20:02)
[2019-11-14] MEDS: HYDROXYCHLOROQUINE SULFATE 200 MG TAB PO SCH (20:05)
[2019-11-14] MEDS: MONTELUKAST SODIUM 10 MG TABLET PO SCH (20:05)
[2019-11-14] MEDS: LATANOPROST 0.005% OP SOLN 2.5 ML BTL OP SCH (20:06)
[2019-11-15 07:40] LABS: Basophils # (auto) 0.01 K/uL (0-0.2); Basophils % (auto) 0.2 %; Eosinophils # (auto) 0.05 K/uL (0-0.5); Eosinophils % (auto) 1.1 %; Hematocrit (blood only) 28.4 % (37-47); Hemoglobin 9.6 g/dL (12.0-16.0); Immature Granulocytes # (auto) 0.02 K/uL (0.00-0.02); Immature Granulocytes % (auto) 0.4 %; Lymphocytes # (auto) 1.24 K/uL (1.2-3.4); Lymphocytes % (auto) 26.7 %; Mean Corpuscular Hemoglobin 30.5 pg (25-34); Mean Corpuscular Hgb Conc 33.8 g/dL (32-36); Mean Corpuscular Volume 90.2 fL (80-100); Mean Platelet Volume 10.5 fL (7.4-10.4); Monocytes # (auto) 0.58 K/uL (0.11-0.59); Monocytes % (auto) 12.5 %; Neutrophils # (auto) 2.74 K/uL (1.4-6.5); Neutrophils % (auto) 59.1 %; Platelet Count 111 K/uL (130-400); RDW Coefficient of Variation 14.6 % (11.5-14.5); RDW Standard Deviation 47.9 fL (36.4-46.3); Red Blood Count 3.15 M/uL (4.2-5.4); White Blood Count 4.64 K/uL (4.8-10.8)
[2019-11-15] MEDS: FOLIC ACID 1 MG TAB PO SCH (08:09)
[2019-11-15] MEDS: predniSONE 5 MG TAB PO SCH (08:09)
[2019-11-15] MEDS: PANTOprazole 40 MG TAB PO SCH (08:09)
[2019-11-15] MEDS: DULOXETINE HCL 60 MG CAP PO SCH (08:09)
[2019-11-15] MEDS: METOPROLOL TARTRATE 25 MG TAB PO SCH ×2 (08:10→20:25)
[2019-11-15] MEDS: CEROVITE ADV FORMULA TAB PO SCH (08:10)
[2019-11-15] MEDS: cephALEXin 500 MG CAP PO SCH ×2 (08:11→20:26)
[2019-11-15] MEDS: metroNIDAZOLE 500 MG TAB PO SCH ×3 (08:11→20:25)
[2019-11-15] MEDS: FLUTICASONE/VILANTEROL 100/25MCG 14 PUFFS/INHALER INH SCH (08:14)
[2019-11-15] MEDS: THIAMINE HCL 100 MG TAB PO SCH (08:14)
[2019-11-15 08:15] LABS: Albumin Level 2.8 gm/dl (3.4-5.0); BUN Creatinine Ratio 14.2 (10-20); Creatinine Clr Calc Pharmacy 46.8 ml/min; Est GFR (Non-African American) 63.9; Potassium 3.4 mmol/L (3.5-5.1)
[2019-11-15] MEDS: RASPBERRY SYRUP 5 ML UDP PO SCH (08:15)
[2019-11-15] MEDS: VANCOMYCIN HCL 125 MG/2.5ML SOLN PO SCH (08:15)
[2019-11-15] MEDS: INSULIN GLARGINE SOLOSTAR 100 UNITS/ML 3 ML PEN SC SCH (08:16)
[2019-11-15] MEDS: INSULIN ASPART 100 UNITS/ML 3 ML PEN SC SCH ×4 (08:19→21:01)
[2019-11-15 08:21] LABS: Bilirubin,Total 0.7 mg/dl (0.2-1); Globulin 2.7 gm/dl (2.5-4.0); Total Protein 5.5 gm/dl (6.4-8.2)
--- NOTE | 2019-11-15 09:55 | Surgery Progress Note ---
Date of Service November 15, 2019 Assessment & Plan (1) S/P laparoscopic cholecystectomy: POD # 2 s/p laparoscopic cholecystectomy - vitals stable other than hypertensive today, afebrile - Hemoglobin 9.9 --> 8.4 --> 8.0 --> 7.7 (11/14/19). s/p 1 unt of PRBCs Hemoglobin 11/15/19 9.6 - pain controlled - ecchymosis of abdomen Plan: Hold any anticoagulation and baby aspirin, follow H&H SCDs for DVT prophylaxis Okay to advance diet as tolerated PT/OT once able Incentive spirometry Do not need ABx from gallbladder prospective since afebrile, no leukocytosis, and recurrent c. diff Continue current medical management (2) Altered mental status: post op /hospital delirium alert to person only at times improves throughout the day Continue medical management (3) UTI (urinary tract infection): culture showing staph aureus continue medical management Dr. Hughes has seen patient and agrees with above. Subjective alert only to person thinks she is at home in her bedroom, was not aware she had her gallbladder removed on Thursday no nausea or vomiting tolerated breakfast this morning has not been out of bed urinating using bed young and bedside commode states she feels okay Physical Exam Constitutional: WD/WN, vitals as above no acute distress Respiratory: normal respiratory effort; no respiratory distress and no labored breathing Gastrointestinal (Abdomen): Inspection/Auscultation: abdomen not distended Percussion/Palpation: + abdomen tender (mild at incision sites) and abdomen soft; no guarding and abdomen not rigid Skin: no rashes, warm and dry + ecchymosis (RUQ abdomen) and + incision (clean/dry/intact) Psychiatric: Orientation: alert; + not oriented x 3 Affect: euthymic affect Results & Data Vital Signs (Past 12 Hours) Vital Signs Temp Pulse Pulse Resp BP Pulse Ox 11/15/19 07:48 36.9 C 64 20 197/70 H 96 11/15/19 03:12 36.9 C 64 18 94 11/14/19 23:58 58 L 11/14/19 23:24 36.8 C 70 18 155/70 H 99 Laboratory Results 11/15/19 11/15/19 11/15/19 Range/Units 07:42 07:16 07:16 WBC 4.64 L (4.8-10.8) K/uL RBC 3.15 L (4.2-5.4) M/uL Hgb 9.6 L (12.0-16.0) g/dL Hct 28.4 L (37-47) % MCV 90.2 (80-100) fL MCH 30.5 (25-34) pg MCHC 33.8 (32-36) g/dL RDW Std Deviation 47.9 H (36.4-46.3) fL RDW Coeff of Xochitl 14.6 H (11.5-14.5) % Plt Count 111 L (130-400) K/uL MPV 10.5 H (7.4-10.4) fL Immature Gran % (Auto) 0.4 % Neut % (Auto) 59.1 % Lymph % (Auto) 26.7 % [place] % (Auto) 12.5 % Eos % (Auto) 1.1 % Baso % (Auto) 0.2 % Immature Gran # (Auto) 0.02 (0.00-0.02) K/uL Neut # (Auto) 2.74 (1.4-6.5) K/uL Lymph # (Auto) 1.24 (1.2-3.4) K/uL [place] # (Auto) 0.58 (0.11-0.59) K/uL Eos # (Auto) 0.05 (0-0.5) K/uL Baso # (Auto) 0.01 (0-0.2) K/uL Sodium 139 (136-145) mmol/L Potassium 3.4 L D (3.5-5.1) mmol/L Chloride 108 H (98-107) mmol/L Carbon Dioxide 25 (21-32) mmol/L Anion Gap 6.0 (3-11) BUN 13 (7-18) mg/dl Creatinine 0.90 (0.6-1.2) mg/dl Est Cr Clr Drug Dosing 46.8 ml/min Est GFR ( Amer) 74.0 Est GFR (Non-Af Amer) 63.9 BUN/Creatinine Ratio 14.2 (10-20) Glucose 79 (70-99) mg/dl POC Glucose 89 (70-99) mg/dl Calcium 9.0 (8.5-10.1) mg/dl Total Bilirubin 0.7 (0.2-1) mg/dl AST 104 H (15-37) U/L ALT 130 H (12-78) U/L Alkaline Phosphatase 105 (45-117) U/L Total Protein 5.5 L (6.4-8.2) gm/dl Albumin 2.8 L (3.4-5.0) gm/dl Globulin 2.7 (2.5-4.0) gm/dl Albumin/Globulin Ratio 1.0 (0.9-2) Urine Color Urine Appearance (Clear) Urine pH (4.5-7.5) Ur Specific [place] (1.000-1.030) Urine Protein (Negative) Urine Glucose (UA) (Negative) Urine Ketones (Negative) Urine Blood (Negative) Urine Nitrite (Negative) Urine Bilirubin (Negative) Urine Urobilinogen (Negative) Ur Leukocyte Esterase (Negative) Blood Type Antibody Screen Crossmatch 11/14/19 11/14/19 11/14/19 Range/Units 20:36 18:04 17:45 WBC (4.8-10.8) K/uL RBC (4.2-5.4) M/uL Hgb 9.3 L (12.0-16.0) g/dL Hct 27.9 L (37-47) % MCV (80-100) fL MCH (25-34) pg MCHC (32-36) g/dL RDW Std Deviation (36.4-46.3) fL RDW Coeff of Xochitl (11.5-14.5) % Plt Count (130-400) K/uL MPV (7.4-10.4) fL Immature Gran % (Auto) % Neut % (Auto) % Lymph % (Auto) % [place] % (Auto) % Eos % (Auto) % Baso % (Auto) % Immature Gran # (Auto) (0.00-0.02) K/uL Neut # (Auto) (1.4-6.5) K/uL Lymph # (Auto) (1.2-3.4) K/uL [place] # (Auto) (0.11-0.59) K/uL Eos # (Auto) (0-0.5) K/uL Baso # (Auto) (0-0.2) K/uL Sodium (136-145) mmol/L Potassium (3.5-5.1) mmol/L Chloride (98-107) mmol/L Carbon Dioxide (21-32) mmol/L Anion Gap (3-11) BUN (7-18) mg/dl Creatinine (0.6-1.2) mg/dl Est Cr Clr Drug Dosing ml/min Est GFR ( Amer) Est GFR (Non-Af Amer) BUN/Creatinine Ratio (10-20) Glucose (70-99) mg/dl POC Glucose 123 H (70-99) mg/dl Calcium (8.5-10.1) mg/dl Total Bilirubin (0.2-1) mg/dl AST (15-37) U/L ALT (12-78) U/L Alkaline Phosphatase (45-117) U/L Total Protein (6.4-8.2) gm/dl Albumin (3.4-5.0) gm/dl Globulin (2.5-4.0) gm/dl Albumin/Globulin Ratio (0.9-2) Urine Color Yellow Urine Appearance Clear (Clear) Urine pH 5.0 (4.5-7.5) Ur Specific [place] 1.014 (1.000-1.030) Urine Protein Negative (Negative) Urine Glucose (UA) Negative (Negative) Urine Ketones Negative (Negative) Urine Blood Negative (Negative) Urine Nitrite Negative (Negative) Urine Bilirubin Negative (Negative) Urine Urobilinogen Negative (Negative) Ur Leukocyte Esterase Negative (Negative) Blood Type Antibody Screen Crossmatch 11/14/19 11/14/19 11/14/19 Range/Units 16:35 11:53 11:37 WBC (4.8-10.8) K/uL RBC (4.2-5.4) M/uL Hgb 7.7 L (12.0-16.0) g/dL Hct 22.7 L (37-47) % MCV (80-100) fL MCH (25-34) pg MCHC (32-36) g/dL RDW Std Deviation (36.4-46.3) fL RDW Coeff of Xochitl (11.5-14.5) % Plt Count (130-400) K/uL MPV (7.4-10.4) fL Immature Gran % (Auto) % Neut % (Auto) % Lymph % (Auto) % [place] % (Auto) % Eos % (Auto) % Baso % (Auto) % Immature Gran # (Auto) (0.00-0.02) K/uL Neut # (Auto) (1.4-6.5) K/uL Lymph # (Auto) (1.2-3.4) K/uL [place] # (Auto) (0.11-0.59) K/uL Eos # (Auto) (0-0.5) K/uL Baso # (Auto) (0-0.2) K/uL Sodium (136-145) mmol/L Potassium (3.5-5.1) mmol/L Chloride (98-107) mmol/L Carbon Dioxide (21-32) mmol/L Anion Gap (3-11) BUN (7-18) mg/dl Creatinine (0.6-1.2) mg/dl Est Cr Clr Drug Dosing ml/min Est GFR ( Amer) Est GFR (Non-Af Amer) BUN/Creatinine Ratio (10-20) Glucose (70-99) mg/dl POC Glucose 135 H 119 H (70-99) mg/dl Calcium (8.5-10.1) mg/dl Total Bilirubin (0.2-1) mg/dl AST (15-37) U/L ALT (12-78) U/L Alkaline Phosphatase (45-117) U/L Total Protein (6.4-8.2) gm/dl Albumin (3.4-5.0) gm/dl Globulin (2.5-4.0) gm/dl Albumin/Globulin Ratio (0.9-2) Urine Color Urine Appearance (Clear) Urine pH (4.5-7.5) Ur Specific [place] (1.000-1.030) Urine Protein (Negative) Urine Glucose (UA) (Negative) Urine Ketones (Negative) Urine Blood (Negative) Urine Nitrite (Negative) Urine Bilirubin (Negative) Urine Urobilinogen (Negative) Ur Leukocyte Esterase (Negative) Blood Type Antibody Screen Crossmatch 11/14/19 Range/Units 06:54 WBC (4.8-10.8) K/uL RBC (4.2-5.4) M/uL Hgb (12.0-16.0) g/dL Hct (37-47) % MCV (80-100) fL MCH (25-34) pg MCHC (32-36) g/dL RDW Std Deviation (36.4-46.3) fL RDW Coeff of Xochitl (11.5-14.5) % Plt Count (130-400) K/uL MPV (7.4-10.4) fL Immature Gran % (Auto) % Neut % (Auto) % Lymph % (Auto) % [place] % (Auto) % Eos % (Auto) % Baso % (Auto) % Immature Gran # (Auto) (0.00-0.02) K/uL Neut # (Auto) (1.4-6.5) K/uL Lymph # (Auto) (1.2-3.4) K/uL [place] # (Auto) (0.11-0.59) K/uL Eos # (Auto) (0-0.5) K/uL Baso # (Auto) (0-0.2) K/uL Sodium (136-145) mmol/L Potassium (3.5-5.1) mmol/L Chloride (98-107) mmol/L Carbon Dioxide (21-32) mmol/L Anion Gap (3-11) BUN (7-18) mg/dl Creatinine (0.6-1.2) mg/dl Est Cr Clr Drug Dosing ml/min Est GFR ( Amer) Est GFR (Non-Af Amer) BUN/Creatinine Ratio (10-20) Glucose (70-99) mg/dl POC Glucose (70-99) mg/dl Calcium (8.5-10.1) mg/dl Total Bilirubin (0.2-1) mg/dl AST (15-37) U/L ALT (12-78) U/L Alkaline Phosphatase (45-117) U/L Total Protein (6.4-8.2) gm/dl Albumin (3.4-5.0) gm/dl Globulin (2.5-4.0) gm/dl Albumin/Globulin Ratio (0.9-2) Urine Color Urine Appearance (Clear) Urine pH (4.5-7.5) Ur Specific [place] (1.000-1.030) Urine Protein (Negative) Urine Glucose (UA) (Negative) Urine Ketones (Negative) Urine Blood (Negative) Urine Nitrite (Negative) Urine Bilirubin (Negative) Urine Urobilinogen (Negative) Ur Leukocyte Esterase (Negative) Blood Type A Negative Antibody Screen NEGATIVE Crossmatch See Detail Microbiology 11/12/19 10:30 Urine Culture - Final Urine,Straight Cath Staphylococcus aureus
[2019-11-15] MEDS ORDERED: POTASSIUM CHLORIDE 20 MEQ TABCR PO STA (10:58)
--- NOTE | 2019-11-15 10:58 | Hospitalist Progress Note ---
Date of Service November 15, 2019 Assessment & Plan (1) Syncope: Secondary to possible orthostasis given low BP upon arrival at the ER, abdominal pain from possible cholecystitis rule out CBD obstruction given abnormal LFTs, overt sepsis possibly downplayed by chronic steroid Rx Rule out new onset seizure given patient account of events Chronic diastolic heart failure as per records (EF 55 to 59%, DSE 2019), patient on the dry side CAD as per records Hypertension, borderline BP upon arrival at the ER currently elevated Troponin elevation possibly secondary to above Medical telemetry for syncopal event, troponin elevation - on my review of system this AM, pt reported on and off chest pain in the past week or so - given hx of poss. LOC, trop elevation and plan for poss. surgery tmrw, will order echo and consult cardiology for further eval - cardiology evaluated the pt, hx of CAD, chronic elev. trop., reported hx of chest pain seems MSK in origin, pt is moderate periop. risk, no intervention that would lower this risk Poss. Cholecystitis Surgery consult RE possible cholecystitis Pt is now s/p lap cholecystectomy (11/13/2019), tolerated procedure well but had hemorrhage later in the day, hemorrhage stopped, but is anemic Ertapenem for possible cholecystitis Ertapenem switch to Keflex and Flagyl Acute blood loss/ Post surgical anemia - w/ presyncopal episode - s/p transfusion of 1 unit of pRBC as Hgb <8 and pt symptomatic - cont. to monitor Elevated LFTs GI consult RE abnormal LFTs in the setting of possible cholecystitis (ER provider already in touch with Dr. Mcneal.) MRCP RE abnormal LFTs rule out CBD obstruction - Cholelithiasis is better appreciated on comparison ultrasound. There is no evidence of acute cholecystitis or choledocholithiasis. - AST and ALT down to 104 and 130 respectively (11/15/2019) - Alk phos and total bili normal (11/15/2019) UTI - Ucltx posit. for MSSA - pt continues to be confused, and having presyncopal episodes, difficult to say the cause/secondary to UTI? - will cont. Keflex for now, will try to d/c Abx joel given known C. diff - will repeat UA/cltx - to see if resolving - cont. 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 seizure-like activity (observed by ) Seizure precautions, Ativan as needed, hold home Tramadol until seizure disorder ruled out EEG, MRI brain for possible seizure work-up Neurology consult RE possible seizure activity Per neurology - most likely presyncope event from orthostasis DM 2 diet-controlled, well-controlled as of recent outpatient hemoglobin A1c of 5.23 July 2019 Basal insulin, ISS BG goal [id number], update hemoglobin A1c Electrolyte imbalance - monitor and replete, K, Mg, Phos as needed - goal K>4, goal Mg>2 asthma/COPD as per records, pulmonary status at baseline rheumatoid arthritis on chronic steroid Rx DVT prophylaxis. SCDs RE possible surgery Full code Admission and Anticipated Discharge Date Admission Date: November 11, 2019 Subjective Pt is lying in bed in NAD, answers most questions appropriately, reported from nursing staff intermittent confusion, also pt tends to move and tries to get out of the bed frequently w/o notifying staff. Denies any fever, chills, chest pain, has mild abdominal pain (at surg. site), shortness of breath, dizziness, nausea or vomiting. However seems little more confused this AM. Review of Systems Review of Systems: All systems reviewed & are unremarkable except as noted in HPI & below and Unobtainable due to cognitive status As per HPI, all 10 systems reviewed, all other ROS negative Pt seems more confused this AM, no complaints though Constitutional: no fever and no chills Respiratory: no cough and no dyspnea Cardiovascular: no chest pain and no palpitations Gastrointestinal: + abdominal pain (some post. surgery (improved)); no nausea and no vomiting Physical Exam Physical Exam: GENERAL: elderly female lying in bed, in NAD HEENT: NC/AT, EOMI, PERRL NECK : Supple, no tenderness CHEST : CTAB, no wheezing, rhonchi, crackles HEART : RRR, no obvious murmurs ABDOMEN: + bowel sounds, soft, obese, some distention, mild RUQ tenderness, significant ecchymosis at RUQ, few surg. incisions, dry clean EXTREMITIES : no LE edema b/l, no LE tenderness, moves extremities spontaneously SKIN: warm, dry NEUROLOGIC : awake and alert, but seems little confused this AM, answers most questions appropriately, no facial asymmetry, speech fluent, moves extremities spontaneously Results & Data ([facility]) Vital Signs (Past 12 Hours) Vital Signs Temp Pulse Pulse Resp BP Pulse Ox 11/15/19 07:48 36.9 C 64 20 197/70 H 96 11/15/19 03:12 36.9 C 64 18 94 11/14/19 23:58 58 L 11/14/19 23:24 36.8 C 70 18 155/70 H 99 Laboratory Results 11/15/19 11/15/19 11/15/19 Range/Units 07:42 07:16 07:16 WBC 4.64 L (4.8-10.8) K/uL RBC 3.15 L (4.2-5.4) M/uL Hgb 9.6 L (12.0-16.0) g/dL Hct 28.4 L (37-47) % MCV 90.2 (80-100) fL MCH 30.5 (25-34) pg MCHC 33.8 (32-36) g/dL RDW Std Deviation 47.9 H (36.4-46.3) fL RDW Coeff of Xochitl 14.6 H (11.5-14.5) % Plt Count 111 L (130-400) K/uL MPV 10.5 H (7.4-10.4) fL Immature Gran % (Auto) 0.4 % Neut % (Auto) 59.1 % Lymph % (Auto) 26.7 % [place] % (Auto) 12.5 % Eos % (Auto) 1.1 % Baso % (Auto) 0.2 % Immature Gran # (Auto) 0.02 (0.00-0.02) K/uL Neut # (Auto) 2.74 (1.4-6.5) K/uL Lymph # (Auto) 1.24 (1.2-3.4) K/uL [place] # (Auto) 0.58 (0.11-0.59) K/uL Eos # (Auto) 0.05 (0-0.5) K/uL Baso # (Auto) 0.01 (0-0.2) K/uL Sodium 139 (136-145) mmol/L Potassium 3.4 L D (3.5-5.1) mmol/L Chloride 108 H (98-107) mmol/L Carbon Dioxide 25 (21-32) mmol/L Anion Gap 6.0 (3-11) BUN 13 (7-18) mg/dl Creatinine 0.90 (0.6-1.2) mg/dl Est Cr Clr Drug Dosing 46.8 ml/min Est GFR ( Amer) 74.0 Est GFR (Non-Af Amer) 63.9 BUN/Creatinine Ratio 14.2 (10-20) Glucose 79 (70-99) mg/dl POC Glucose 89 (70-99) mg/dl Calcium 9.0 (8.5-10.1) mg/dl Total Bilirubin 0.7 (0.2-1) mg/dl AST 104 H (15-37) U/L ALT 130 H (12-78) U/L Alkaline Phosphatase 105 (45-117) U/L Total Protein 5.5 L (6.4-8.2) gm/dl Albumin 2.8 L (3.4-5.0) gm/dl Globulin 2.7 (2.5-4.0) gm/dl Albumin/Globulin Ratio 1.0 (0.9-2) Urine Color Urine Appearance (Clear) Urine pH (4.5-7.5) Ur Specific [place] (1.000-1.030) Urine Protein (Negative) Urine Glucose (UA) (Negative) Urine Ketones (Negative) Urine Blood (Negative) Urine Nitrite (Negative) Urine Bilirubin (Negative) Urine Urobilinogen (Negative) Ur Leukocyte Esterase (Negative) Blood Type Antibody Screen Crossmatch 11/14/19 11/14/19 11/14/19 Range/Units 20:36 18:04 17:45 WBC (4.8-10.8) K/uL RBC (4.2-5.4) M/uL Hgb 9.3 L (12.0-16.0) g/dL Hct 27.9 L (37-47) % MCV (80-100) fL MCH (25-34) pg MCHC (32-36) g/dL RDW Std Deviation (36.4-46.3) fL RDW Coeff of Xochitl (11.5-14.5) % Plt Count (130-400) K/uL MPV (7.4-10.4) fL Immature Gran % (Auto) % Neut % (Auto) % Lymph % (Auto) % [place] % (Auto) % Eos % (Auto) % Baso % (Auto) % Immature Gran # (Auto) (0.00-0.02) K/uL Neut # (Auto) (1.4-6.5) K/uL Lymph # (Auto) (1.2-3.4) K/uL [place] # (Auto) (0.11-0.59) K/uL Eos # (Auto) (0-0.5) K/uL Baso # (Auto) (0-0.2) K/uL Sodium (136-145) mmol/L Potassium (3.5-5.1) mmol/L Chloride (98-107) mmol/L Carbon Dioxide (21-32) mmol/L Anion Gap (3-11) BUN (7-18) mg/dl Creatinine (0.6-1.2) mg/dl Est Cr Clr Drug Dosing ml/min Est GFR ( Amer) Est GFR (Non-Af Amer) BUN/Creatinine Ratio (10-20) Glucose (70-99) mg/dl POC Glucose 123 H (70-99) mg/dl Calcium (8.5-10.1) mg/dl Total Bilirubin (0.2-1) mg/dl AST (15-37) U/L ALT (12-78) U/L Alkaline Phosphatase (45-117) U/L Total Protein (6.4-8.2) gm/dl Albumin (3.4-5.0) gm/dl Globulin (2.5-4.0) gm/dl Albumin/Globulin Ratio (0.9-2) Urine Color Yellow Urine Appearance Clear (Clear) Urine pH 5.0 (4.5-7.5) Ur Specific [place] 1.014 (1.000-1.030) Urine Protein Negative (Negative) Urine Glucose (UA) Negative (Negative) Urine Ketones Negative (Negative) Urine Blood Negative (Negative) Urine Nitrite Negative (Negative) Urine Bilirubin Negative (Negative) Urine Urobilinogen Negative (Negative) Ur Leukocyte Esterase Negative (Negative) Blood Type Antibody Screen Crossmatch 11/14/19 11/14/19 11/14/19 Range/Units 16:35 11:53 11:37 WBC (4.8-10.8) K/uL RBC (4.2-5.4) M/uL Hgb 7.7 L (12.0-16.0) g/dL Hct 22.7 L (37-47) % MCV (80-100) fL MCH (25-34) pg MCHC (32-36) g/dL RDW Std Deviation (36.4-46.3) fL RDW Coeff of Xochitl (11.5-14.5) % Plt Count (130-400) K/uL MPV (7.4-10.4) fL Immature Gran % (Auto) % Neut % (Auto) % Lymph % (Auto) % [place] % (Auto) % Eos % (Auto) % Baso % (Auto) % Immature Gran # (Auto) (0.00-0.02) K/uL Neut # (Auto) (1.4-6.5) K/uL Lymph # (Auto) (1.2-3.4) K/uL [place] # (Auto) (0.11-0.59) K/uL Eos # (Auto) (0-0.5) K/uL Baso # (Auto) (0-0.2) K/uL Sodium (136-145) mmol/L Potassium (3.5-5.1) mmol/L Chloride (98-107) mmol/L Carbon Dioxide (21-32) mmol/L Anion Gap (3-11) BUN (7-18) mg/dl Creatinine (0.6-1.2) mg/dl Est Cr Clr Drug Dosing ml/min Est GFR ( Amer) Est GFR (Non-Af Amer) BUN/Creatinine Ratio (10-20) Glucose (70-99) mg/dl POC Glucose 135 H 119 H (70-99) mg/dl Calcium (8.5-10.1) mg/dl Total Bilirubin (0.2-1) mg/dl AST (15-37) U/L ALT (12-78) U/L Alkaline Phosphatase (45-117) U/L Total Protein (6.4-8.2) gm/dl Albumin (3.4-5.0) gm/dl Globulin (2.5-4.0) gm/dl Albumin/Globulin Ratio (0.9-2) Urine Color Urine Appearance (Clear) Urine pH (4.5-7.5) Ur Specific [place] (1.000-1.030) Urine Protein (Negative) Urine Glucose (UA) (Negative) Urine Ketones (Negative) Urine Blood (Negative) Urine Nitrite (Negative) Urine Bilirubin (Negative) Urine Urobilinogen (Negative) Ur Leukocyte Esterase (Negative) Blood Type Antibody Screen Crossmatch 11/14/19 Range/Units 06:54 WBC (4.8-10.8) K/uL RBC (4.2-5.4) M/uL Hgb (12.0-16.0) g/dL Hct (37-47) % MCV (80-100) fL MCH (25-34) pg MCHC (32-36) g/dL RDW Std Deviation (36.4-46.3) fL RDW Coeff of Xochitl (11.5-14.5) % Plt Count (130-400) K/uL MPV (7.4-10.4) fL Immature Gran % (Auto) % Neut % (Auto) % Lymph % (Auto) % [place] % (Auto) % Eos % (Auto) % Baso % (Auto) % Immature Gran # (Auto) (0.00-0.02) K/uL Neut # (Auto) (1.4-6.5) K/uL Lymph # (Auto) (1.2-3.4) K/uL [place] # (Auto) (0.11-0.59) K/uL Eos # (Auto) (0-0.5) K/uL Baso # (Auto) (0-0.2) K/uL Sodium (136-145) mmol/L Potassium (3.5-5.1) mmol/L Chloride (98-107) mmol/L Carbon Dioxide (21-32) mmol/L Anion Gap (3-11) BUN (7-18) mg/dl Creatinine (0.6-1.2) mg/dl Est Cr Clr Drug Dosing ml/min Est GFR ( Amer) Est GFR (Non-Af Amer) BUN/Creatinine Ratio (10-20) Glucose (70-99) mg/dl POC Glucose (70-99) mg/dl Calcium (8.5-10.1) mg/dl Total Bilirubin (0.2-1) mg/dl AST (15-37) U/L ALT (12-78) U/L Alkaline Phosphatase (45-117) U/L Total Protein (6.4-8.2) gm/dl Albumin (3.4-5.0) gm/dl Globulin (2.5-4.0) gm/dl Albumin/Globulin Ratio (0.9-2) Urine Color Urine Appearance (Clear) Urine pH (4.5-7.5) Ur Specific [place] (1.000-1.030) Urine Protein (Negative) Urine Glucose (UA) (Negative) Urine Ketones (Negative) Urine Blood (Negative) Urine Nitrite (Negative) Urine Bilirubin (Negative) Urine Urobilinogen (Negative) Ur Leukocyte Esterase (Negative) Blood Type A Negative Antibody Screen NEGATIVE Crossmatch See Detail Medications Administered Current Inpatient Medications Acetaminophen (Tylenol) 325 mg PO Q6H PRN PRN Reason: Pain or Fever Stop: 12/12/19 01:17 Aspirin (Ecotrin Ectab) 81 mg PO HS [facility] Stop: 12/12/19 20:59 Last Admin: 11/13/19 22:17 Dose: Not Given Documented by: Cephalexin HCl (Keflex) 500 mg PO BID KARLA; Protocol Stop: 11/24/19 20:59 Last Admin: 11/15/19 08:11 Dose: 500 mg Documented by: Dextrose (Dextrose 50%) 25 - 50 ml IV UD PRN; Protocol PRN Reason: Hypoglycemia Protocol Stop: 12/12/19 04:22 Last Admin: 11/13/19 06:07 Dose: 25 ml Documented by: Duloxetine HCl (Cymbalta) 60 mg PO DAILY [facility] Stop: 12/12/19 08:59 Last Admin: 11/15/19 08:09 Dose: 60 mg Documented by: Fluticasone/Vilanterol (Breo Ellipta 100/25 Mcg Inh) 1 puffs INH DAILY KARLA Stop: 12/14/19 08:59 Last Admin: 11/15/19 08:14 Dose: 1 puffs Documented by: Folic Acid (Folvite) 1 mg PO QAM KARLA Stop: 12/12/19 08:59 Last Admin: 11/15/19 08:09 Dose: 1 mg Documented by: Gadobutrol (Gadavist 65ml) 5.5 ml IV ONCE PRN PRN Reason: Interaction Checking Stop: 11/16/19 15:50 Last Admin: 11/12/19 15:52 Dose: 5.5 ml Documented by: Glucagon (Glucagen) 1 mg SQ UD PRN; Protocol PRN Reason: Hypoglycemia Protocol Stop: 12/12/19 04:22 Glucose (Dex4 Glucose) 4 - 8 tabs PO UD PRN; Protocol PRN Reason: Hypoglycemia Protocol Stop: 12/12/19 04:22 Glucose (Glucose 40%) 15 - 30 gm PO UD PRN; Protocol PRN Reason: Hypoglycemia Protocol Stop: 12/12/19 04:22 Hydromorphone HCl (Dilaudid) 0.25 mg IV Q3H PRN PRN Reason: Pain Stop: 11/26/19 01:17 Hydroxychloroquine Sulfate (Plaquenil) 200 mg PO HS [facility] Stop: 12/12/19 20:59 Last Admin: 11/14/19 20:05 Dose: 200 mg Documented by: Promethazine HCl 12.5 mg/ (Sodium Chloride) 50.5 mls @ 202 mls/hr IV Q6H PRN PRN Reason: Nausea And Vomiting Stop: 12/12/19 01:17 Lorazepam (Ativan) 1 mg in 2 mls @ 0.5 mls/min IV Q10M PRN PRN Reason: seizures Stop: 12/12/19 01:17 Insulin Aspart (Novolog Flexpen) 0 units SC ACHS [facility] Stop: 12/13/19 12:29 Last Admin: 11/15/19 08:19 Dose: Not Given Documented by: Insulin Glargine (Lantus Solostar Pen) 5 units SC DAILY [facility] Stop: 12/13/19 08:59 Last Admin: 11/15/19 08:16 Dose: 5 units Documented by: Latanoprost (Xalatan Oph) 1 drops OP HS [facility] Stop: 12/12/19 20:59 Last Admin: 11/14/19 20:06 Dose: 1 drops Documented by: Levalbuterol HCl (Xopenex 1.25mg/3ml Neb) 1.25 mg INH Q4 PRN PRN Reason: Shortness Of Breath Stop: 12/13/19 11:13 Lisinopril (Zestril) 2.5 mg PO QAM [facility] Stop: 12/13/19 08:59 Last Admin: 11/13/19 12:26 Dose: 2.5 mg Documented by: Metoprolol Tartrate (Lopressor) 25 mg PO BID [facility] Stop: 12/12/19 08:59 Last Admin: 11/15/19 08:10 Dose: 25 mg Documented by: Metronidazole (Flagyl) 500 mg PO TID [facility]; Protocol Stop: 11/24/19 20:59 Last Admin: 11/15/19 08:11 Dose: 500 mg Documented by: Miscellaneous (Carbohydrates For Hypoglycemia) 15 - 30 gm PO UD PRN PRN Reason: Hypoglycemia Protocol Stop: 12/12/19 04:22 Montelukast Sodium (Singulair) 10 mg PO HS [facility] Stop: 12/12/19 20:59 Last Admin: 11/14/19 20:05 Dose: 10 mg Documented by: Multivitamins/Minerals (Multivitamin W/ Minerals Tab) 1 tab PO QAM [facility] Stop: 12/12/19 08:59 Last Admin: 11/15/19 08:10 Dose: 1 tab Documented by: Nitroglycerin (Nitrostat) 0.4 mg SL UD [facility] Stop: 12/13/19 11:13 Oxycodone HCl (Roxicodone Immediate Rel) 5 mg PO Q4H PRN PRN Reason: Pain Stop: 11/26/19 01:17 Pantoprazole Sodium (Protonix) 40 mg PO QAM [facility] Stop: 12/12/19 08:59 Last Admin: 11/15/19 08:09 Dose: 40 mg Documented by: Prednisone (Prednisone) 5 mg PO DAILY [facility] Stop: 12/12/19 08:59 Last Admin: 11/15/19 08:09 Dose: 5 mg Documented by: Raspberry (Raspberry) 5 ml PO DAILY [facility] Stop: 11/26/19 08:59 Last Admin: 11/15/19 08:15 Dose: 5 ml Documented by: Thiamine HCl (Vitamin B-1) 50 mg PO QAM [facility] Stop: 12/12/19 08:59 Last Admin: 11/15/19 08:14 Dose: 50 mg Documented by: Triamcinolone Acetonide (Kenalog 0.1%) 1 appln TOP BID PRN PRN Reason: Rash Stop: 12/13/19 11:13 Vancomycin HCl (Vancomycin Hcl) 125 mg PO DAILY [facility] Stop: 11/26/19 08:59 Last Admin: 11/15/19 08:15 Dose: 125 mg Documented by:
[2019-11-15 13:48] LABS: Appearance Urine Clear (Clear); Bacteria Urine Automated Negative (Negative); Bilirubin Urine Negative (Negative); Blood Urine Negative (Negative); Cast Urine Automated 0 /lpf (0-5); Color Urine Yellow; Glucose Urine UA Negative (Negative); Ketones Urine Negative (Negative); Leukocyte Esterase Urine Trace (Negative); Nitrite Urine Negative (Negative); Protein Urine Negative (Negative); RBC Urine Automated 0-4 /hpf (0-4); Specific Gravity Urine 1.013 (1.000-1.030); Urobilinogen Urine Negative (Negative)
[2019-11-15] MEDS: HYDROXYCHLOROQUINE SULFATE 200 MG TAB PO SCH (20:26)
[2019-11-15] MEDS: MONTELUKAST SODIUM 10 MG TABLET PO SCH (20:26)
[2019-11-15] MEDS: LATANOPROST 0.005% OP SOLN 2.5 ML BTL OP SCH (20:27)
[2019-11-16] MEDS: CEROVITE ADV FORMULA TAB PO SCH (08:04)
[2019-11-16] MEDS: INSULIN ASPART 100 UNITS/ML 3 ML PEN SC SCH ×4 (08:04→22:06)
[2019-11-16] MEDS: predniSONE 5 MG TAB PO SCH (08:04)
[2019-11-16] MEDS: RASPBERRY SYRUP 5 ML UDP PO SCH (08:04)
[2019-11-16] MEDS: THIAMINE HCL 100 MG TAB PO SCH (08:04)
[2019-11-16] MEDS: PANTOprazole 40 MG TAB PO SCH (08:04)
[2019-11-16] MEDS: VANCOMYCIN HCL 125 MG/2.5ML SOLN PO SCH (08:04)
[2019-11-16] MEDS: METOPROLOL TARTRATE 25 MG TAB PO SCH ×2 (08:05→21:44)
[2019-11-16] MEDS: metroNIDAZOLE 500 MG TAB PO SCH ×2 (08:05→13:47)
[2019-11-16] MEDS: INSULIN GLARGINE SOLOSTAR 100 UNITS/ML 3 ML PEN SC SCH (08:05)
[2019-11-16] MEDS: cephALEXin 500 MG CAP PO SCH ×2 (08:05→21:45)
[2019-11-16] MEDS: FOLIC ACID 1 MG TAB PO SCH (08:05)
[2019-11-16] MEDS: DULOXETINE HCL 60 MG CAP PO SCH (08:05)
[2019-11-16] MEDS: FLUTICASONE/VILANTEROL 100/25MCG 14 PUFFS/INHALER INH SCH (08:05)
[2019-11-16 08:34] LABS: Creatinine Clr Calc Pharmacy 41.7 ml/min; Est GFR (African American) 64.4; Est GFR (Non-African American) 55.6
[2019-11-16 09:00] LABS: Basophils # (auto) 0.02 K/uL (0-0.2); Basophils % (auto) 0.5 %; Eosinophils # (auto) 0.09 K/uL (0-0.5); Eosinophils % (auto) 2.2 %; Hematocrit (blood only) 31.6 % (37-47); Hemoglobin 10.6 g/dL (12.0-16.0); Immature Granulocytes # (auto) 0.01 K/uL (0.00-0.02); Immature Granulocytes % (auto) 0.2 %; Lymphocytes # (auto) 1.62 K/uL (1.2-3.4); Lymphocytes % (auto) 39.9 %; Mean Corpuscular Hemoglobin 30.2 pg (25-34); Mean Corpuscular Hgb Conc 33.5 g/dL (32-36); Mean Platelet Volume 10.4 fL (7.4-10.4); Monocytes % (auto) 12.3 %; Neutrophils # (auto) 1.82 K/uL (1.4-6.5); Neutrophils % (auto) 44.9 %; Platelet Count 126 K/uL (130-400); RDW Coefficient of Variation 14.9 % (11.5-14.5); RDW Standard Deviation 48.9 fL (36.4-46.3); Red Blood Count 3.51 M/uL (4.2-5.4); White Blood Count 4.06 K/uL (4.8-10.8)
[2019-11-16 09:15] LABS: Albumin Level 2.8 gm/dl (3.4-5.0); BUN Creatinine Ratio 12.7 (10-20); Bilirubin,Total 0.7 mg/dl (0.2-1); Calcium 9.2 mg/dl (8.5-10.1); Creatinine Clr Calc Pharmacy 42.9 ml/min; Est GFR (African American) 66.8; Est GFR (Non-African American) 57.6; Globulin 2.7 gm/dl (2.5-4.0); Total Protein 5.5 gm/dl (6.4-8.2)
[2019-11-16 09:44] LABS: Potassium 4.1 mmol/L (3.5-5.1)
--- NOTE | 2019-11-16 12:42 | Surgery Progress Note ---
Date of Service November 16, 2019 Assessment & Plan (1) S/P laparoscopic cholecystectomy: POD # 3 s/p laparoscopic cholecystectomy - vitals stable afebrile - Hemoglobin 10.6 today (9.6 yesterday) s/p 1 unit of PRBCs - pain controlled - ecchymosis of abdomen , stable - T. bili wnl, LFTs improved Plan: Doing well from surgical standpoint Hemoglobin stable s/p transfusion, no signs of active bleeding, ecchymosis stable Okay from surgical standpoint for discharge to SNF for rehab once medically stable okay to resume baby aspirin tomorrow Follow-up in surgical office in 2 weeks (2) Altered mental status: Resolved Alert and oriented x 3 today (3) UTI (urinary tract infection): culture showing staph aureus continue medical management Dr. Hughes has seen patient and agrees with above. Subjective per at bedside she is doing much better mentally today. She is alert to person, place, and time. some abdominal discomfort when moving but not much pain no n/v tolerating diet has ambulated to restroom case management has seen patient, likely going to SNF for rehab Physical Exam Constitutional: WD/WN, vitals as above no acute distress Respiratory: normal respiratory effort; no respiratory distress, no labored breathing and no retractions Gastrointestinal (Abdomen): Inspection/Auscultation: abdomen not distended Percussion/Palpation: + abdomen tender (very mild at incision sites) and abdomen soft; no guarding and abdomen not rigid Skin: no rashes, warm and dry + ecchymosis (of the upper abdomen, spreading to LUQ due to position but otherwise stable) Psychiatric: A+Ox3, euthymic affect Results & Data Vital Signs (Past 12 Hours) Vital Signs Temp Pulse Resp BP Pulse Ox 11/16/19 10:54 36.7 C 59 L 20 123/64 92 11/16/19 07:21 36.7 C 64 20 163/69 H 99 11/16/19 04:00 36.7 C 67 16 154/71 H 96 Laboratory Results 11/16/19 11/16/19 11/16/19 Range/Units 11:13 07:37 07:37 WBC 4.06 L (4.8-10.8) K/uL RBC 3.51 L (4.2-5.4) M/uL Hgb 10.6 L (12.0-16.0) g/dL Hct 31.6 L (37-47) % MCV 90.0 (80-100) fL MCH 30.2 (25-34) pg MCHC 33.5 (32-36) g/dL RDW Std Deviation 48.9 H (36.4-46.3) fL RDW Coeff of Xochitl 14.9 H (11.5-14.5) % Plt Count 126 L (130-400) K/uL MPV 10.4 (7.4-10.4) fL Immature Gran % (Auto) 0.2 % Neut % (Auto) 44.9 % Lymph % (Auto) 39.9 % [place] % (Auto) 12.3 % Eos % (Auto) 2.2 % Baso % (Auto) 0.5 % Immature Gran # (Auto) 0.01 (0.00-0.02) K/uL Neut # (Auto) 1.82 (1.4-6.5) K/uL Lymph # (Auto) 1.62 (1.2-3.4) K/uL [place] # (Auto) 0.50 (0.11-0.59) K/uL Eos # (Auto) 0.09 (0-0.5) K/uL Baso # (Auto) 0.02 (0-0.2) K/uL Sodium 139 (136-145) mmol/L Potassium 4.1 D (3.5-5.1) mmol/L Chloride 107 (98-107) mmol/L Carbon Dioxide 28 (21-32) mmol/L Anion Gap 5.0 (3-11) BUN 12 (7-18) mg/dl Creatinine 0.98 (0.6-1.2) mg/dl Est Cr Clr Drug Dosing 42.9 ml/min Est GFR ( Amer) 66.8 Est GFR (Non-Af Amer) 57.6 BUN/Creatinine Ratio 12.7 (10-20) Glucose 80 (70-99) mg/dl POC Glucose 117 H (70-99) mg/dl Calcium 9.2 (8.5-10.1) mg/dl Total Bilirubin 0.7 (0.2-1) mg/dl AST 74 H (15-37) U/L ALT 107 H (12-78) U/L Alkaline Phosphatase 107 (45-117) U/L Total Protein 5.5 L (6.4-8.2) gm/dl Albumin 2.8 L (3.4-5.0) gm/dl Globulin 2.7 (2.5-4.0) gm/dl Albumin/Globulin Ratio 1.0 (0.9-2) Urine Color Urine Appearance (Clear) Urine pH (4.5-7.5) Ur Specific [place] (1.000-1.030) Urine Protein (Negative) Urine Glucose (UA) (Negative) Urine Ketones (Negative) Urine Blood (Negative) Urine Nitrite (Negative) Urine Bilirubin (Negative) Urine Urobilinogen (Negative) Ur Leukocyte Esterase (Negative) Urine WBC (Auto) (0-5) /hpf Urine RBC (Auto) (0-4) /hpf U Hyaline Cast (Auto) (0-5) /lpf U Epithel Cells (Auto) (0-5) /lpf Urine Bacteria (Auto) (Negative) 11/16/19 11/16/19 11/15/19 Range/Units 07:37 07:17 20:34 WBC (4.8-10.8) K/uL RBC (4.2-5.4) M/uL Hgb (12.0-16.0) g/dL Hct (37-47) % MCV (80-100) fL MCH (25-34) pg MCHC (32-36) g/dL RDW Std Deviation (36.4-46.3) fL RDW Coeff of Xochitl (11.5-14.5) % Plt Count (130-400) K/uL MPV (7.4-10.4) fL Immature Gran % (Auto) % Neut % (Auto) % Lymph % (Auto) % [place] % (Auto) % Eos % (Auto) % Baso % (Auto) % Immature Gran # (Auto) (0.00-0.02) K/uL Neut # (Auto) (1.4-6.5) K/uL Lymph # (Auto) (1.2-3.4) K/uL [place] # (Auto) (0.11-0.59) K/uL Eos # (Auto) (0-0.5) K/uL Baso # (Auto) (0-0.2) K/uL Sodium (136-145) mmol/L Potassium (3.5-5.1) mmol/L Chloride (98-107) mmol/L Carbon Dioxide (21-32) mmol/L Anion Gap (3-11) BUN (7-18) mg/dl Creatinine 1.01 (0.6-1.2) mg/dl Est Cr Clr Drug Dosing 41.7 ml/min Est GFR ( Amer) 64.4 Est GFR (Non-Af Amer) 55.6 BUN/Creatinine Ratio (10-20) Glucose (70-99) mg/dl POC Glucose 84 92 (70-99) mg/dl Calcium (8.5-10.1) mg/dl Total Bilirubin (0.2-1) mg/dl AST (15-37) U/L ALT (12-78) U/L Alkaline Phosphatase (45-117) U/L Total Protein (6.4-8.2) gm/dl Albumin (3.4-5.0) gm/dl Globulin (2.5-4.0) gm/dl Albumin/Globulin Ratio (0.9-2) Urine Color Urine Appearance (Clear) Urine pH (4.5-7.5) Ur Specific [place] (1.000-1.030) Urine Protein (Negative) Urine Glucose (UA) (Negative) Urine Ketones (Negative) Urine Blood (Negative) Urine Nitrite (Negative) Urine Bilirubin (Negative) Urine Urobilinogen (Negative) Ur Leukocyte Esterase (Negative) Urine WBC (Auto) (0-5) /hpf Urine RBC (Auto) (0-4) /hpf U Hyaline Cast (Auto) (0-5) /lpf U Epithel Cells (Auto) (0-5) /lpf Urine Bacteria (Auto) (Negative) 11/15/19 11/15/19 Range/Units 16:27 13:30 WBC (4.8-10.8) K/uL RBC (4.2-5.4) M/uL Hgb (12.0-16.0) g/dL Hct (37-47) % MCV (80-100) fL MCH (25-34) pg MCHC (32-36) g/dL RDW Std Deviation (36.4-46.3) fL RDW Coeff of Xochitl (11.5-14.5) % Plt Count (130-400) K/uL MPV (7.4-10.4) fL Immature Gran % (Auto) % Neut % (Auto) % Lymph % (Auto) % [place] % (Auto) % Eos % (Auto) % Baso % (Auto) % Immature Gran # (Auto) (0.00-0.02) K/uL Neut # (Auto) (1.4-6.5) K/uL Lymph # (Auto) (1.2-3.4) K/uL [place] # (Auto) (0.11-0.59) K/uL Eos # (Auto) (0-0.5) K/uL Baso # (Auto) (0-0.2) K/uL Sodium (136-145) mmol/L Potassium (3.5-5.1) mmol/L Chloride (98-107) mmol/L Carbon Dioxide (21-32) mmol/L Anion Gap (3-11) BUN (7-18) mg/dl Creatinine (0.6-1.2) mg/dl Est Cr Clr Drug Dosing ml/min Est GFR ( Amer) Est GFR (Non-Af Amer) BUN/Creatinine Ratio (10-20) Glucose (70-99) mg/dl POC Glucose 103 H (70-99) mg/dl Calcium (8.5-10.1) mg/dl Total Bilirubin (0.2-1) mg/dl AST (15-37) U/L ALT (12-78) U/L Alkaline Phosphatase (45-117) U/L Total Protein (6.4-8.2) gm/dl Albumin (3.4-5.0) gm/dl Globulin (2.5-4.0) gm/dl Albumin/Globulin Ratio (0.9-2) Urine Color Yellow Urine Appearance Clear (Clear) Urine pH 5.0 (4.5-7.5) Ur Specific [place] 1.013 (1.000-1.030) Urine Protein Negative (Negative) Urine Glucose (UA) Negative (Negative) Urine Ketones Negative (Negative) Urine Blood Negative (Negative) Urine Nitrite Negative (Negative) Urine Bilirubin Negative (Negative) Urine Urobilinogen Negative (Negative) Ur Leukocyte Esterase Trace H (Negative) Urine WBC (Auto) 1-5 (0-5) /hpf Urine RBC (Auto) 0-4 (0-4) /hpf U Hyaline Cast (Auto) 0 (0-5) /lpf U Epithel Cells (Auto) 5-10 H (0-5) /lpf Urine Bacteria (Auto) Negative (Negative)
--- NOTE | 2019-11-16 18:19 | Hospitalist Progress Note ---
Date of Service November 16, 2019 Assessment & Plan (1) Acute cholecystitis: Acute cholecystitis, status post laparoscopic cholecystectomy postoperative day 3 Appreciate input from GI/status post ERCP, surgery team Patient recovering well post procedure, diet advanced to solid tolerating well Had bowel movement yesterday Minimum pain/discomfort at the laparoscopic cholecystectomy sites, all surgical wounds appears to be healing well Per surgical team patient can be discharged to rehab Referral made to [facility], possible transition to rehab tomorrow will provide transport (2) Syncope: Presented with syncope episode, possible secondary to orthostatic hypotension/dehydration with underlying acute cholecystitis No further episode noted, Patient denies of any dizzy spell or lightheadedness Stable to discharge telemetry Patient does not need any antibiotic post cholecystectomy Questionable seizure-like activity, appreciate input from neurology, Does not feel patient had any actual seizure, possible it is related to the syncope secondary to orthostatic hypotension No further procedure treatment needed History of chronic diastolic heart failure as per records (EF 55 to 59%, DSE 2018), Volume status stable Acute blood loss/ Post surgical anemia - w/ presyncopal episode - s/p transfusion of 1 unit of pRBC as Hgb <8 and pt symptomatic -Hemoglobin stable post transplantation Elevated LFTs Secondary to possible choledocholithiasis/acute cholecystitis Status post ERCP, status post cholecystectomy UTI - Ucltx posit. for MSSA -P.o. 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 SCD and teds Full code Disposition: Plan to transfer to rehab at [facility] tomorrow Admission and Anticipated Discharge Date Admission Date: November 11, 2019 Anticipated date of discharge: 11/17/19 Subjective Patient appears to be very comfortable, Denies of any pain or discomfort, on right upper quadrant abdomen at surgical site Diet advanced to solid, tolerating well, No fever or chills present at bedside Review of Systems Review of Systems: All systems reviewed & are unremarkable except as noted in HPI & below Gastrointestinal: no abdominal pain, no heartburn, no nausea and no vomiting Physical Exam Constitutional: WD/WN, vitals as above + obese; no acute distress Eyes: PERRL, conjunctivae normal, anicteric sclerae ENMT: external ear and nose normal, oropharynx normal Neck: trachea midline, no thyromegaly Respiratory: normal respiratory effort, lungs clear to auscultation Cardiovascular: RRR, no murmur, no edema Gastrointestinal (Abdomen): Inspection/Auscultation: normal bowel sounds; + abdomen abnormal to inspection (Right upper quadrant laparoscopic incision site noted, diffuse ecchymosis on right abdominal wall, no open wounds,) Percussion/Palpation: abdomen soft; abdomen nontender Neurologic: PERRL, EOMI, accommodation nl, no face palsy, no dysarthria Psychiatric: A+Ox3, euthymic affect Results & Data ([facility]) Vital Signs (Past 12 Hours) Vital Signs Temp Pulse Resp BP Pulse Ox 11/16/19 15:45 36.8 C 71 19 138/58 L 96 11/16/19 10:54 36.7 C 59 L 20 123/64 92 11/16/19 07:21 36.7 C 64 20 163/69 H 99
[2019-11-16] MEDS: HYDROXYCHLOROQUINE SULFATE 200 MG TAB PO SCH (21:45)
[2019-11-16] MEDS: MONTELUKAST SODIUM 10 MG TABLET PO SCH (21:46)
[2019-11-16] MEDS: LATANOPROST 0.005% OP SOLN 2.5 ML BTL OP SCH (21:47)
[2019-11-16] MEDS: ASPIRIN 81 MG ECTAB PO SCH (21:47)
[2019-11-17] MEDS: RASPBERRY SYRUP 5 ML UDP PO SCH (07:45)
[2019-11-17] MEDS: THIAMINE HCL 100 MG TAB PO SCH (07:45)
[2019-11-17] MEDS: VANCOMYCIN HCL 125 MG/2.5ML SOLN PO SCH (07:45)
[2019-11-17] MEDS: FOLIC ACID 1 MG TAB PO SCH (07:46)
[2019-11-17] MEDS: cephALEXin 500 MG CAP PO SCH (07:46)
[2019-11-17] MEDS: FLUTICASONE/VILANTEROL 100/25MCG 14 PUFFS/INHALER INH SCH (07:46)
[2019-11-17] MEDS: METOPROLOL TARTRATE 25 MG TAB PO SCH (07:46)
[2019-11-17] MEDS: DULOXETINE HCL 60 MG CAP PO SCH (07:46)
[2019-11-17] MEDS: CEROVITE ADV FORMULA TAB PO SCH (07:48)
[2019-11-17] MEDS: INSULIN ASPART 100 UNITS/ML 3 ML PEN SC SCH ×2 (08:19→13:15)
[2019-11-17] MEDS: INSULIN GLARGINE SOLOSTAR 100 UNITS/ML 3 ML PEN SC SCH (08:19)
[2019-11-17] MEDS: PANTOprazole 40 MG TAB PO SCH (08:29)
--- NOTE | 2019-11-17 11:36 | Hospitalist Progress Note ---
Date of Service November 17, 2019 Assessment & Plan (1) Acute cholecystitis: Acute cholecystitis, status post laparoscopic cholecystectomy postoperative day #4 Appreciate input from GI/status post ERCP, surgery team Patient recovering well post procedure, diet advanced to solid tolerating well Having bowel movements Minimum pain/discomfort at the laparoscopic cholecystectomy sites, all surgical wounds appears to be healing well Patient is stable to be discharged Denied for skilled rehab by insurance as, as patient did well with physical therapy yesterday Discussed with patient at bedside with case management, patient feels comfortable to return home with home health and home PT Plan to discharge home later today (2) Syncope: Feels fine, no further episode since admission patient denies of any dizzy spell or lightheadedness Presented with syncope episode, possible secondary to orthostatic hypotension/dehydration with underlying acute cholecystitis Questionable seizure-like activity, appreciate input from neurology, Does not feel patient had any actual seizure, possible it is related to the syncope secondary to orthostatic hypotension No further procedure treatment needed History of chronic diastolic heart failure as per records (EF 55 to 59%, DSE 2018), Volume status stable Acute blood loss/ Post surgical anemia - w/ presyncopal episode - s/p transfusion of 1 unit of pRBC as Hgb <8 and pt symptomatic -Hemoglobin stable post transfusion Elevated LFTs Secondary to possible choledocholithiasis/acute cholecystitis Status post ERCP, status post cholecystectomy LFTs improved UTI - Ucltx posit. for MSSA -P.o. Keflex, for total 3 days treatment only Patient is asymptomatic denies of any dysuria urinary frequency History of recurrent C. difficile -On oral vancomycin taper DM 2 diet-controlled, well-controlled as of recent outpatient hemoglobin A1c of 5.23 July 2019 Basal insulin, ISS BG goal [id number], asthma/COPD as per records, pulmonary status at baseline rheumatoid arthritis on chronic steroid Rx DVT prophylaxis. SCD and teds Full code Disposition: stable to be discharged home with home health Admission and Anticipated Discharge Date Admission Date: November 11, 2019 Anticipated date of discharge: 11/17/19 Subjective Patient is very comfortable, denies of abdominal pain, tolerating diet, no fever no chills Review of Systems Review of Systems: All systems reviewed & are unremarkable except as noted in HPI & below Gastrointestinal: no abdominal pain, no heartburn, no nausea, no vomiting and no dysphagia Physical Exam Constitutional: WD/WN, vitals as above + obese; no acute distress Eyes: PERRL, conjunctivae normal, anicteric sclerae ENMT: external ear and nose normal, oropharynx normal Neck: trachea midline, no thyromegaly Respiratory: normal respiratory effort, lungs clear to auscultation Cardiovascular: RRR, no murmur, no edema Gastrointestinal (Abdomen): Inspection/Auscultation: normal bowel sounds; + abdomen abnormal to inspection (Right upper quadrant laparoscopic incision site noted, diffuse ecchymosis on right abdominal wall, no open wounds,) Percussion/Palpation: abdomen soft; abdomen nontender Neurologic: PERRL, EOMI, accommodation nl, no face palsy, no dysarthria Psychiatric: A+Ox3, euthymic affect Results & Data ([facility]) Vital Signs (Past 12 Hours) Vital Signs Temp Pulse Resp BP Pulse Ox 11/17/19 10:15 36.9 C 59 L 16 173/79 H 95 11/17/19 07:50 36.9 C 62 20 172/80 H 97 11/17/19 00:00 36.9 C 71 20 136/74 94
--- NOTE | 2019-11-17 23:57 | Discharge Summary ---
Date of Service November 17, 2019 Admission HPI Per Admitting Provider 74 yo female with multiple comorbidities including DM, CAD, HTN, COPD and RA as well as problems with recurrent C dificile following courses of antibiotics in August for pneumonia. She presented to the ER after an episode at home of ?syncope vs seizure witnessed by her . On arrival in the ER she was noted to be mildly hypotensive. Labs were significant for elevated troponin as well as sings of hemoconcentration. LFTs were noted to be abnormal with AST 417, ALT 561, AP 275 and TB 1.3. She was given IVF hydration and labs this AM show trend toward improvement with AST 266, ALT 399, AP 199 and TB 0.9. She did have some intermittent abdominal discomfort at home which was thought to be related to the C diff. She is on an oral vancomycin taper. CT in the ER did not show anything other than "questionable minimal inflammation adjacent to the gallbladder. No ductal dilation. A follow up US showed normal appearing gallbladder other than stones and normal CBD of 4mm. Feeling OK this AM. Principal Diagnosis ACUTE CHOLECYSTITIS S/P CHOLECYSTECTOMY Discharge Exam Constitutional WD/WN, vitals as above + obese; no acute distress Eyes PERRL, conjunctivae normal, anicteric sclerae ENMT external ear and nose normal, oropharynx normal Neck trachea midline, no thyromegaly Respiratory normal respiratory effort, lungs clear to auscultation Cardiovascular RRR, no murmur, no edema Gastrointestinal (Abdomen) Inspection/Auscultation: normal bowel sounds; + abdomen abnormal to inspection (Right upper quadrant laparoscopic incision site noted, diffuse ecchymosis on right abdominal wall, no open wounds,) Percussion/Palpation: abdomen soft; abdomen nontender Neurologic PERRL, EOMI, accommodation nl, no face palsy, no dysarthria Psychiatric A+Ox3, euthymic affect Discharge Data Allergies Allergy/AdvReac Type Severity Reaction Status Date / Time methotrexate Allergy Intermediate RASH/PNEUMO Verified 11/11/19 23:47 NITIS Penicillins Allergy Intermediate hives Verified 11/11/19 23:47 ranitidine Allergy Intermediate rash Verified 11/11/19 23:47 Insecticides Allergy Severe DIFFICULTY Uncoded 11/11/19 23:47 BREATHING; FULL BODY SWELLING Consultations 11/11/19 22:53 ED Decision to Admit Stat 11/12/19 01:18 Consult Gastroenterology Routine Consult General Surgery Routine Consult Neurology Routine 11/12/19 10:31 Consult Cardiology Routine Procedures Performed Operation Date: 11/13/19 07:30 Actual Procedures p Laparoscopic Cholecystectomy with Intraoperative Cholangiogram(Not Applicable) - Chucho Han MD Ordered Studies 11/11/19 18:45 CT head/brain wo con Stat 11/11/19 20:49 CT abd pelvis wo con Stat 11/11/19 21:39 US gallbladder Stat 11/12/19 01:18 MR MRCP Routine MR brain seizure wo/w con Routine 11/13/19 [place] cholangiogram OR Routine Hospital Course (1) Acute cholecystitis: Acute cholecystitis, status post laparoscopic cholecystectomy postoperative day #4 Appreciate input from GI/status post ERCP, surgery team Patient recovering well post procedure, diet advanced to solid tolerating well Having bowel movements Minimum pain/discomfort at the laparoscopic cholecystectomy sites, all surgical wounds appears to be healing well Patient is stable to be discharged Denied for skilled rehab by insurance as, as patient did well with physical therapy yesterday Discussed with patient at bedside with case management, patient feels comfortable to return home with home health and home PT Plan to discharge home later today (2) Syncope: Feels fine, no further episode since admission patient denies of any dizzy spell or lightheadedness Presented with syncope episode, possible secondary to orthostatic hypotension/dehydration with underlying acute cholecystitis Questionable seizure-like activity, appreciate input from neurology, Does not feel patient had any actual seizure, possible it is related to the syncope secondary to orthostatic hypotension No further procedure treatment needed History of chronic diastolic heart failure as per records (EF 55 to 59%, DSE 2018), Volume status stable Acute blood loss/ Post surgical anemia - w/ presyncopal episode - s/p transfusion of 1 unit of pRBC as Hgb <8 and pt symptomatic -Hemoglobin stable post transfusion Elevated LFTs Secondary to possible choledocholithiasis/acute cholecystitis Status post ERCP, status post cholecystectomy LFTs improved UTI - Ucltx posit. for MSSA -P.o. Keflex, for total 3 days treatment only Patient is asymptomatic denies of any dysuria urinary frequency History of recurrent C. difficile -On oral vancomycin taper DM 2 diet-controlled, well-controlled as of recent outpatient hemoglobin A1c of 5.23 July 2019 Basal insulin, ISS BG goal [id number], asthma/COPD as per records, pulmonary status at baseline rheumatoid arthritis on chronic steroid Rx DVT prophylaxis. SCD and teds Full code Disposition: stable to be discharged home with home health Total Time Total Time Spent Total Time Spent (In Minutes): 35 mins Total Time Includes: Examination of the Patient, Discharge Planning and Medication Reconciliation Discharge Plan Discharge Items Patient Disposition: Home - Home Health Services Reason For Visit: SYNCOPE, CHOLECYSTITIS Discharge Diagnosis: ACUTE CHOLECYSTITIS S/P CHOLECYSTECTOMY Condition on Discharge: Fair Activity: Resume your previous activity Non-emergency contact: Primary Care Provider Call non-emergency contact if: you have any medication questions Follow-up/Referrals: Leni Moyer DO [Primary Care Provider] - 11/21/19 11:20 am Diet: Low Fat Addtl Attending Provider Instructions: FOLLOW THE INSTRUCTIONS FOR ACTIVITY OUTLINED BY SURGERY CONTINUE LOW FAT DIET FOR AT LEAST 2-3 WEEKS TO PREVENT ABDOMINAL BLOATING AFTER GALL BLADDER SURGERY Addtl Supervisor Front Provider Instructions: Surgical discharge instructions: Activity Recommendations: - lifting limitation: (20 pounds for 4 weeks), - exercise/sex/sports limit: (nonstrenuous for 2 weeks), - driving or machine use limit: (none for 1 week), - Shower/bathe limit: (may shower, no submerging incisions underwater for 2 weeks) Diet: - Resume previous diet SPECIAL CARE INSTRUCTIONS: - May shower. Let water run over area and pat dry. - Leave steri strips on for one week from surgery date and then remove. - Call the surgeon's office with any questions or concerns - - (ex. temperature higher than 101 degrees F, excessive bleeding or pain). MEDICATIONS: - Resume previous medications unless instructed otherwise by your surgeon. - Tylenol 650 mg every 6 hours as needed for pain FOLLOW UP VISIT: - If not already scheduled, please call the office to schedule a one week follow-up appointment. Office number Pending Studies at Discharge: No Stand-Alone Forms: My [employer], Smoking Cessation Medications and DC Order Prescriptions: Continued latanoprost [Xalatan] 0.005 % Drops 1 drp OPHTHALMIC (EYE) HS RF: 0 clindamycin HCl 150 mg Capsule 600 mg PO UD PRN (Reason: prior to dental appointments) RF: 0 cyanocobalamin (vitamin B-12) [Vitamin B-12] 1,000 mcg Tablet 2,000 mcg PO 3XWK RF: 0 leflunomide [Arava] 10 mg Tablet 10 mg PO QAM RF: 0 tramadol 50 mg Tablet 50 mg PO BID PRN (Reason: Pain) RF: 0 triamcinolone acetonide 0.1 % Cream 1 applic TOPICAL BID PRN (Reason: Rash) RF: 0 nitroglycerin 0.4 mg Tablet, Sublingual 0.4 mg sublingual UD RF: 0 betamethasone dipropionate 0.05 % Cream 1 applic TOPICAL DAILY PRN (Reason: Rash) RF: 0 nystatin 100,000 unit/gram Powder 1 applic TOPICAL TID PRN (Reason: Rash) RF: 0 levalbuterol HCl [Xopenex] 1.25 mg/3 mL Solution For Nebulization 1.25 mg INHALATION Q4 PRN (Reason: Shortness Of Breath) RF: 0 albuterol sulfate [ProAir HFA] 90 mcg/actuation Hfa Aerosol Inhaler 2 puff INHALATION Q4 PRN (Reason: Shortness Of Breath) RF: 0 fluticasone propionate [Flonase Allergy Relief] 50 mcg/actuation [place],Suspension 2 spray INTRANASAL DAILY PRN (Reason: Allergy Symptoms) RF: 0 Ocuvite with Lutein 1,000 unit-200 mg-60 unit-2 mg Tablet 1 tab PO QAM RF: 0 cholecalciferol (vitamin D3) [Vitamin D3] 2,000 unit Capsule 2,000 unit PO QAM RF: 0 prednisone 5 mg tablet 5 - 10 mg PO QAM RF: 0 aspirin [Aspir-81] 81 mg Tablet,Delayed Release (Dr/Ec) 81 mg PO HS RF: 0 pantoprazole 40 mg tablet,delayed release (DR/EC) 40 mg PO QAM RF: 0 folic acid 1 mg tablet 1 mg PO QAM RF: 0 montelukast 10 mg tablet 10 mg PO HS RF: 0 hydroxychloroquine 200 mg tablet 200 mg PO HS RF: 0 lisinopril 2.5 mg tablet 2.5 mg PO QAM RF: 0 metoprolol tartrate 25 mg tablet 25 mg PO BID RF: 0 duloxetine 30 mg capsule,delayed release(DR/EC) 60 mg PO DAILY RF: 0 thiamine mononitrate (vit B1) 100 mg tablet 50 mg PO QAM RF: 0 fluticasone furoate-vilanterol 100-25 mcg/dose Blister With Device 1 inh INHALATION DAILY RF: 0 Centrum Silver Women 8 mg iron-400 mcg-300 mcg Tablet 1 tab PO DAILY RF: 0 rosuvastatin 10 mg Tablet 10 mg PO DAILY RF: 0 vancomycin 125 mg Capsule 125 mg PO DIRECTED RF: 0 Vicks NyQuil Cough 6.25-15 mg/15 mL Solution 30 ml PO Q6H PRN (Reason: Cough) RF: 0 Discharge Orders: Discharge Order (Routine); Ordered 11/17/19 Ordered By: Kimmy Bowser/Other Patient Handouts: Cooking Tips Low Fat, Hyperglycemia, Hypoglycemia, Diabetes Type 2 Coping, Flavor Add Low Fat Meals, Eating Healthy Go, Diabetes Meal Planning, ED Diet Low Fat Admission Data Admit Date/Time: 11/11/19 23:58 Attending Provider: Kimmy Velasquez Admit Provider: Marlo Duarte Primary Care Provider: Leni Moyer Other Providers: Marlo Duarte ; Toshia Mcneal ; Chucho Han ; Mary Babin ; Sathish Snow ; Mary Anderson ; Chance Churchill ; Damien Carmona ; Flavio Melisas ; Goyo Quintero ; César Meza ; Chucho Smith ; Kenneth Stacy ; Latonia [facility] ; Mary Davenport ; Kostas Fleming Other Interventions: Discharge Summary Assessment (RN) Last Done: 11/17/19 13:47 DC Date/Time DO NOT enter until pt leaves facility: 11/17/19 14:42
== END 2019-11-17 14:42 | disposition home health service (06) | DRG 418 ==
LOC: ED 18:11 → 2W 23:58 → SUATTDRO 23:58 → 2W 11-12 00:49 → 3N 11-17 09:18

== ENCOUNTER 2020-10-09 02:35 | Inpatient (IN) ==
[2020-10-09] MEDS ORDERED: ONDANSETRON INJ 2 MG/ML 2 ML VIAL IV STA (02:52)
[2020-10-09] MEDS ORDERED: fentaNYL citrate 100 MCG/2 ML VIAL IV STA (02:52)
[2020-10-09] MEDS ORDERED: SODIUM CHLORIDE 0.9% 1000ML 500 ML IV ONE ×2 (02:52→04:04)
--- NOTE | 2020-10-09 02:59 | Emergency Department Note ---
Impression & Plan Sepsis, Lactic acidosis, C. difficile colitis ED Provider Note Name: GRACE ELLINGTON Age: 75 Sex: F Arrives Via: Walk-In Informant: Patient, ED Provider: En Oconnell MD Chief Complaint: Fever Impression: Sepsis Lactic Acidosis C. Difficile Colitis Medical Decision Makin yr old female with extensive PMH who arrives for evaluation of fever. Quite ill appearing, actively vomiting and very uncomfortable. Septic work-up initiated and treated with zofran/fentanyl for symptoms. CXR clear, UA unremarkable. Blood cultures obtained and Lactic acid is elevated. She had fever at home and with LA this is consistent with sepsis. Broad spectrum ABx initiated along with full 30ml/kg IV fluids. Labs with mild wbc elevation though otherwise looking OK. With abdominal pain and history CT a/p obtained reveals diffuse colitis. Given PO Vanco along with her IV abx. Patient vastly improved with treatments and looks much more comfortable. Cdiff returned positive consistent with colitis on CT and diarrhea she has been having. Suspect this is primary source of sepsis at this time. In setting of sepsis she will need to come in for further management which she and agree with. Prior Medical Record and Triage/Nursing Notes reviewed by Me Additional history obtained from Differentials:Viral syndrome, otitis, pharyngitis, pneumonia, influenza, meningitis, urinary tract infection, sepsis, bacteremia, as well as other pathologies. Vital Signs: reviewed and remarkable for no significant abnormalities (febrile at home per ) Interventions: saline lock, 30ml/kg IV NSS bolus, Zofran IV, fentanyl IV, Cefepime IV, Vanco IV, Vanco PO Labs:Reviewed and remarkable for lactic acidosis Imaging:X ray results are stated below per my interpretation: Chest: 1 view: No infiltrate, no effusion, normal cardiac border. [facility] Radiologist interpretation reviewed by me: CT a/p w con: colitis EKG:Per My Interpretation: Indication Sepsis: NSR 86 bpm, qtc 452 with non specific t wave abnormalities. No ectopy. Compared to previous 11/09/19 similar pattern. Cardiac/Tele Monitoring: Cardiac Monitoring: An Order was placed for continuous cardiac monitoring. The monitor shows a rate of 80 with a normal sinus rhythm. Consults:Dr Matt Martines Hospitalist Plan: Disposition:Hospitalization. Condition: Good History of Present Illness:75 yr old female with extensive PMH arrives for evaluation of fever. Patient with recent shingles which she was started on gabapentin a few days ago for. Since then with some increased weakness, ataxia and headaches. Throughout the last 12 hours increasing diffuse abdominal pain and cramping. Used Tylenol when this started without improvement. Notes pain is bandlike across mid abdomen. Associated with worsening of her chronic diarrhea, nausea, vomiting and fatigue. Has been unable to eat this evening. No chest pain, cough, shortness of breath, syncope, focal weakness, urinary symptoms, leg swelling nor other symptoms. She has a history of Cdiff and has been having diarrhea for several months now. No known Covid, though had covid 2 months ago and has recovered. Patieht notes exertion makes worse, rest makes a bit better. No inciting incident today. No falls, trauma, injuries. ROS: See above HPI for pertinent positives & negatives. A total of 10 systems reviewed and were otherwise negative. Past Medical History:See Below Past Surgical History:See Below Family History:See Below Social History:See Below Home Medications:Extensive see below Allergies:methotrexate, penicillin, ranitidine, insecticides Vitals:Blood Pressure: 153/73, Pulse 82, RR 18, T 37.5C, O2 95% on RA Physical Exam: GENERAL: Patient is unwell and ill appearing and in moderate distress. Actively vomiting. EYES: No scleral icterus, unremarkable pupils. ENT: Mucous membranes dry, no nasal congestion. NECK: No masses appreciated, nomeningismus, trachea is midline. RESPIRATORY: No dyspnea. Clear to auscultation and equal bilaterally. No wheeze, no rhonchi. CARDIOVASCULAR: Regular rate and rhythm.No murmurs, rubs, gallops appreciated. GASTROINTESTINAL: Diffuse TTP mild entire abdomen though abdomen soft, without no peritonitis.Bowel sounds hyperactive.No masses appreciated. BACK: No midline tenderness, no CVA tenderness EXTREMITIES: Normal motion all extremities, no cyanosis, no edema. NEUROLOGIC: Alert and oriented, no acute motor or sensory deficits, no focal weakness, cranial nerves grossly intact. SKIN: No rash, no jaundice, no diaphoresis. PSYCH: Appropriate GCS: 15 ED Course: Times/Reassessments: Much improved with fluids/zofran/fentanyl. Comfortable with hospitalization Critical Care: I have personally spent 35 minutes of critical care time in the direct management of this patient. Sepsis secondary to C.diff colitis requiring fluid resus with broad spectrum abx. This was a life/limb threatening event. This 35 minutes is in excess of all separately billable procedures. En Oconnell MD Past Med/Surg History Medical History (Updated 10/09/20 @ 05:46 by En Oconnell MD) Asthma inhalers prn Chronic steroid use prednisone daily CKD (chronic kidney disease), stage III COPD (chronic obstructive pulmonary disease) inhalers prn Depression DJD of right shoulder DM type 2 (diabetes mellitus, type 2) Dyslipidemia Gastroparesis GERD (gastroesophageal reflux disease) Glaucoma Gout H/O interstitial lung disease "drug induced- methotrexate " Heart disease HTN (hypertension) Migraines NSTEMI (non-ST elevated myocardial infarction) (08/06/13) Osteoarthritis Peripheral neuropathy Rheumatoid arthritis "on chronic steroids" Surgical History (Updated 11/13/19 @ 21:04 by Chucho Han MD) H/O cardiac catheterization "cath 07/2013- single vessel CAD involving apical segment LAD, medical management indicated" H/O colonoscopy History of esophagogastroduodenoscopy (EGD) History of hysterectomy History of tooth extraction all top teeth S/P removal of ovarian cyst S/P rotator cuff repair "right shoulder" S/P total knee arthroplasty "left knee" Family History Father Family history of diabetes mellitus Other No family history of adverse response to anesthesia Social History Smoking Status: Never smoker Second Hand Exposure: No; Hx Alcohol Use: No Hx Substance Use: No Preferred Language: Colombian Communication Ability: Effective 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 Required: No Beliefs That Will Affect Care: None marital status: Current Living Situation: Spouse Feels Safe at Home: Yes Assistive Devices: Denture - Upper and Glasses Allergies Allergies Allergy/AdvReac Type Severity Reaction Status Date / Time methotrexate Allergy Intermediate RASH/PNEUMO Verified 10/09/20 04:22 NITIS Penicillins Allergy Intermediate hives Verified 10/09/20 04:22 ranitidine Allergy Intermediate rash Verified 10/09/20 04:22 Insecticides Allergy Severe DIFFICULTY Uncoded 10/09/20 04:22 BREATHING; FULL BODY SWELLING Home Meds Home Medications Medication Instructions Recorded Confirmed duloxetine 60 mg PO DAILY 07/20/18 10/09/20 folic acid 1 mg PO QAM 07/20/18 10/09/20 hydroxychloroquine 200 mg PO HS 07/20/18 10/09/20 lisinopril 2.5 mg PO QAM 07/20/18 10/09/20 metoprolol tartrate 25 mg PO BID 07/20/18 10/09/20 montelukast 10 mg PO HS 07/20/18 10/09/20 pantoprazole 40 mg PO QAM 07/20/18 10/09/20 prednisone 5 mg PO QAM 07/20/18 10/09/20 thiamine mononitrate (vit B1) 50 mg PO QAM 07/20/18 10/09/20 Ocuvite with Lutein 1 tab PO QAM 03/07/19 10/09/20 albuterol sulfate [ProAir HFA] 2 puff INHALATION Q4 PRN 03/07/19 10/09/20 cholecalciferol (vitamin D3) 2,000 unit PO QAM 03/07/19 10/09/20 [Vitamin D3] clindamycin HCl 600 mg PO UD PRN 03/07/19 10/09/20 cyanocobalamin (vitamin B-12) 2,000 mcg PO 3XWK 03/07/19 10/09/20 [Vitamin B-12] latanoprost [Xalatan] 1 drp OPHTHALMIC (EYE) HS 03/07/19 10/09/20 leflunomide [Arava] 10 mg PO QAM 03/07/19 10/09/20 levalbuterol HCl [Xopenex] 1.25 mg INHALATION Q4 PRN 03/07/19 10/09/20 nitroglycerin 0.4 mg SUBLINGUAL UD 03/07/19 10/09/20 nystatin 1 applic TOPICAL TID PRN 03/07/19 10/09/20 tramadol 50 mg PO BID PRN 03/07/19 10/09/20 Centrum Silver Women 1 tab PO DAILY 11/12/19 10/09/20 fluticasone furoate-vilanterol 1 inh INHALATION DAILY 11/12/19 10/09/20 rosuvastatin 10 mg PO DAILY 11/12/19 10/09/20 vancomycin 125 mg PO DIRECTED 11/12/19 10/09/20 aspirin [Aspirin Low Dose] 81 mg PO HS 10/09/20 10/09/20 gabapentin 300 mg PO TID 10/09/20 10/09/20 risedronate 35 mg PO WK 10/09/20 10/09/20 Results & Data (ED) Vital Signs Vital Signs - 24 hr 10/09/20 02:40 10/09/20 03:30 10/09/20 04:17 Temperature 37.5 C Temperature Source Temporal Artery Scan Pulse Rate 82 86 91 H Pulse Rate from SpO2 Sensor 85 92 H Respiratory Rate 18 20 18 Blood Pressure 153/73 H 180/129 H 181/141 H Blood Pressure Mean 99 146 154 Pulse Oximetry 95 96 93 Oxygen Delivery Method Room Air Sepsis Recent Fever Within 48 Hours Yes Sepsis New/Unexplained Change in Mental Status Yes Sepsis Action Taken by Nursing No Action Required 10/09/20 04:18 10/09/20 04:30 10/09/20 05:00 Temperature Temperature Source Pulse Rate 90 93 H 93 H Pulse Rate from SpO2 Sensor 88 94 H 93 H Respiratory Rate 20 22 20 Blood Pressure 186/85 H 156/92 H 147/89 H Blood Pressure Mean 118 113 108 Pulse Oximetry 95 94 94 Oxygen Delivery Method Sepsis Recent Fever Within 48 Hours Sepsis New/Unexplained Change in Mental Status Sepsis Action Taken by Nursing 10/09/20 05:30 10/09/20 06:00 Temperature Temperature Source Pulse Rate 93 H 94 H Pulse Rate from SpO2 Sensor 93 H 94 H Respiratory Rate 22 23 Blood Pressure 144/90 H 143/72 H Blood Pressure Mean 108 95 Pulse Oximetry 96 95 Oxygen Delivery Method Sepsis Recent Fever Within 48 Hours Sepsis New/Unexplained Change in Mental Status Sepsis Action Taken by Nursing Laboratory Data Result diagrams: 10/09/20 03:05 10/09/20 03:05 Lab Results 10/09/20 10/09/20 10/09/20 Range/Units 03:05 03:05 03:05 WBC 15.01 H (4.8-10.8) K/uL RBC 4.41 (4.2-5.4) M/uL Hgb 12.9 (12.0-16.0) g/dL Hct 39.1 (37-47) % MCV 88.7 (80-100) fL MCH 29.3 (25-34) pg MCHC 33.0 (32-36) g/dL RDW Std Deviation 55.3 H (36.4-46.3) fL RDW Coeff of Xochitl 16.8 H (11.5-14.5) % Plt Count 236 (130-400) K/uL MPV 10.1 (7.4-10.4) fL Immature Gran % (Auto) 0.5 % Neut % (Auto) 67.7 % Lymph % (Auto) 22.9 % [place] % (Auto) 8.7 % Eos % (Auto) 0.1 % Baso % (Auto) 0.1 % Neut # (Auto) 10.17 H (1.4-6.5) K/uL Lymph # (Auto) 3.43 H (1.2-3.4) K/uL [place] # (Auto) 1.30 H (0.11-0.59) K/uL Eos # (Auto) 0.02 (0-0.5) K/uL Baso # (Auto) 0.02 (0-0.2) K/uL Immature Gran # (Auto) 0.07 H (0.00-0.02) K/uL PT (9.0-12.0) Seconds INR (0.9-1.1) Sodium (136-145) mmol/L Potassium (3.5-5.1) mmol/L Chloride (98-107) mmol/L Carbon Dioxide (21-32) mmol/L Anion Gap (3-11) BUN (7-18) mg/dl Creatinine (0.6-1.2) mg/dl Est Cr Clr Drug Dosing Est GFR ( Amer) Est GFR (Non-Af Amer) BUN/Creatinine Ratio (10-20) Glucose (70-99) mg/dl Lactate (0.4-2.0) mmol/L Calcium (8.5-10.1) mg/dl Magnesium (1.8-2.4) mg/dl Total Bilirubin (0.2-1) mg/dl Direct Bilirubin (0-0.2) mg/dl AST (15-37) U/L ALT (12-78) U/L Alkaline Phosphatase (45-117) U/L Troponin I (0-0.045) ng/ml Total Protein (6.4-8.2) gm/dl Albumin (3.4-5.0) gm/dl Lipase (73-393) U/L Procalcitonin 5.97 H (0-0.5) ng/ml Urine Color Urine Appearance (Clear) Urine pH (4.5-7.5) Ur Specific Ermine (1.000-1.030) Urine Protein (Negative) Urine Glucose (UA) (Negative) Urine Ketones (Negative) Urine Blood (Negative) Urine Nitrite (Negative) Urine Bilirubin (Negative) Urine Urobilinogen (Negative) Ur Leukocyte Esterase (Negative) Urine WBC (Auto) (0-5) /hpf Urine RBC (Auto) (0-4) /hpf U Hyaline Cast (Auto) (0-5) /lpf U Epithel Cells (Auto) (0-5) /lpf Urine Bacteria (Auto) (Negative) Stl C. diff Tox B Gene (Neg) Stl C.difficile Tox A&B (Negative) COVID-19 Eval Order SARS-CoV-2 (PCR) (Negative) Influenza Type A (PCR) (Neg) Influenza Type B (PCR) (Neg) RSV (RT-PCR) (Neg) Blood Type A Negative Antibody Screen NEGATIVE 10/09/20 10/09/20 10/09/20 Range/Units 03:05 03:05 03:20 WBC (4.8-10.8) K/uL RBC (4.2-5.4) M/uL Hgb (12.0-16.0) g/dL Hct (37-47) % MCV (80-100) fL MCH (25-34) pg MCHC (32-36) g/dL RDW Std Deviation (36.4-46.3) fL RDW Coeff of Xochitl (11.5-14.5) % Plt Count (130-400) K/uL MPV (7.4-10.4) fL Immature Gran % (Auto) % Neut % (Auto) % Lymph % (Auto) % [place] % (Auto) % Eos % (Auto) % Baso % (Auto) % Neut # (Auto) (1.4-6.5) K/uL Lymph # (Auto) (1.2-3.4) K/uL [place] # (Auto) (0.11-0.59) K/uL Eos # (Auto) (0-0.5) K/uL Baso # (Auto) (0-0.2) K/uL Immature Gran # (Auto) (0.00-0.02) K/uL PT 10.8 (9.0-12.0) Seconds INR 1.0 (0.9-1.1) Sodium 136 (136-145) mmol/L Potassium 4.3 (3.5-5.1) mmol/L Chloride 102 (98-107) mmol/L Carbon Dioxide 25 (21-32) mmol/L Anion Gap 9.0 (3-11) BUN 17 (7-18) mg/dl Creatinine 1.39 H (0.6-1.2) mg/dl Est Cr Clr Drug Dosing Not Reportable Est GFR ( Amer) 43.5 Est GFR (Non-Af Amer) 37.5 BUN/Creatinine Ratio 12.1 (10-20) Glucose 101 H (70-99) mg/dl Lactate (0.4-2.0) mmol/L Calcium 8.9 (8.5-10.1) mg/dl Magnesium 1.9 (1.8-2.4) mg/dl Total Bilirubin 0.5 (0.2-1) mg/dl Direct Bilirubin 0.2 (0-0.2) mg/dl AST 72 H (15-37) U/L ALT 67 (12-78) U/L Alkaline Phosphatase 200 H (45-117) U/L Troponin I 0.025 (0-0.045) ng/ml Total Protein 7.0 (6.4-8.2) gm/dl Albumin 2.9 L (3.4-5.0) gm/dl Lipase 173 (73-393) U/L Procalcitonin (0-0.5) ng/ml Urine Color Urine Appearance (Clear) Urine pH (4.5-7.5) Ur Specific [place] (1.000-1.030) Urine Protein (Negative) Urine Glucose (UA) (Negative) Urine Ketones (Negative) Urine Blood (Negative) Urine Nitrite (Negative) Urine Bilirubin (Negative) Urine Urobilinogen (Negative) Ur Leukocyte Esterase (Negative) Urine WBC (Auto) (0-5) /hpf Urine RBC (Auto) (0-4) /hpf U Hyaline Cast (Auto) (0-5) /lpf U Epithel Cells (Auto) (0-5) /lpf Urine Bacteria (Auto) (Negative) Stl C. diff Tox B Gene Positive Cdiff Gene H (Neg) Stl C.difficile Tox A&B Positive Cdiff Toxin A* (Negative) COVID-19 Eval Order SARS-CoV-2 (PCR) (Negative) Influenza Type A (PCR) (Neg) Influenza Type B (PCR) (Neg) RSV (RT-PCR) (Neg) Blood Type Antibody Screen 10/09/20 10/09/20 10/09/20 Range/Units 03:21 03:38 03:38 WBC (4.8-10.8) K/uL RBC (4.2-5.4) M/uL Hgb (12.0-16.0) g/dL Hct (37-47) % MCV (80-100) fL MCH (25-34) pg MCHC (32-36) g/dL RDW Std Deviation (36.4-46.3) fL RDW Coeff of Xochitl (11.5-14.5) % Plt Count (130-400) K/uL MPV (7.4-10.4) fL Immature Gran % (Auto) % Neut % (Auto) % Lymph % (Auto) % [place] % (Auto) % Eos % (Auto) % Baso % (Auto) % Neut # (Auto) (1.4-6.5) K/uL Lymph # (Auto) (1.2-3.4) K/uL [place] # (Auto) (0.11-0.59) K/uL Eos # (Auto) (0-0.5) K/uL Baso # (Auto) (0-0.2) K/uL Immature Gran # (Auto) (0.00-0.02) K/uL PT (9.0-12.0) Seconds INR (0.9-1.1) Sodium (136-145) mmol/L Potassium (3.5-5.1) mmol/L Chloride (98-107) mmol/L Carbon Dioxide (21-32) mmol/L Anion Gap (3-11) BUN (7-18) mg/dl Creatinine (0.6-1.2) mg/dl Est Cr Clr Drug Dosing Est GFR ( Amer) Est GFR (Non-Af Amer) BUN/Creatinine Ratio (10-20) Glucose (70-99) mg/dl Lactate 3.7 H* (0.4-2.0) mmol/L Calcium (8.5-10.1) mg/dl Magnesium (1.8-2.4) mg/dl Total Bilirubin (0.2-1) mg/dl Direct Bilirubin (0-0.2) mg/dl AST (15-37) U/L ALT (12-78) U/L Alkaline Phosphatase (45-117) U/L Troponin I (0-0.045) ng/ml Total Protein (6.4-8.2) gm/dl Albumin (3.4-5.0) gm/dl Lipase (73-393) U/L Procalcitonin (0-0.5) ng/ml Urine Color Urine Appearance (Clear) Urine pH (4.5-7.5) Ur Specific [place] (1.000-1.030) Urine Protein (Negative) Urine Glucose (UA) (Negative) Urine Ketones (Negative) Urine Blood (Negative) Urine Nitrite (Negative) Urine Bilirubin (Negative) Urine Urobilinogen (Negative) Ur Leukocyte Esterase (Negative) Urine WBC (Auto) (0-5) /hpf Urine RBC (Auto) (0-4) /hpf U Hyaline Cast (Auto) (0-5) /lpf U Epithel Cells (Auto) (0-5) /lpf Urine Bacteria (Auto) (Negative) Stl C. diff Tox B Gene (Neg) Stl C.difficile Tox A&B (Negative) COVID-19 Eval Order [facility]sv at [facility] SARS-CoV-2 (PCR) NEGATIVE (Negative) Influenza Type A (PCR) Negative (Neg) Influenza Type B (PCR) Negative (Neg) RSV (RT-PCR) Negative (Neg) Blood Type Antibody Screen 10/09/20 10/09/20 Range/Units 04:16 05:36 WBC (4.8-10.8) K/uL RBC (4.2-5.4) M/uL Hgb (12.0-16.0) g/dL Hct (37-47) % MCV (80-100) fL MCH (25-34) pg MCHC (32-36) g/dL RDW Std Deviation (36.4-46.3) fL RDW Coeff of Xochitl (11.5-14.5) % Plt Count (130-400) K/uL MPV (7.4-10.4) fL Immature Gran % (Auto) % Neut % (Auto) % Lymph % (Auto) % [place] % (Auto) % Eos % (Auto) % Baso % (Auto) % Neut # (Auto) (1.4-6.5) K/uL Lymph # (Auto) (1.2-3.4) K/uL [place] # (Auto) (0.11-0.59) K/uL Eos # (Auto) (0-0.5) K/uL Baso # (Auto) (0-0.2) K/uL Immature Gran # (Auto) (0.00-0.02) K/uL PT (9.0-12.0) Seconds INR (0.9-1.1) Sodium (136-145) mmol/L Potassium (3.5-5.1) mmol/L Chloride (98-107) mmol/L Carbon Dioxide (21-32) mmol/L Anion Gap (3-11) BUN (7-18) mg/dl Creatinine (0.6-1.2) mg/dl Est Cr Clr Drug Dosing Est GFR ( Amer) Est GFR (Non-Af Amer) BUN/Creatinine Ratio (10-20) Glucose (70-99) mg/dl Lactate 1.6 (0.4-2.0) mmol/L Calcium (8.5-10.1) mg/dl Magnesium (1.8-2.4) mg/dl Total Bilirubin (0.2-1) mg/dl Direct Bilirubin (0-0.2) mg/dl AST (15-37) U/L ALT (12-78) U/L Alkaline Phosphatase (45-117) U/L Troponin I (0-0.045) ng/ml Total Protein (6.4-8.2) gm/dl Albumin (3.4-5.0) gm/dl Lipase (73-393) U/L Procalcitonin (0-0.5) ng/ml Urine Color Dark Yellow Urine Appearance Clear (Clear) Urine pH 5.0 (4.5-7.5) Ur Specific [place] 1.027 (1.000-1.030) Urine Protein 1+ H (Negative) Urine Glucose (UA) Negative (Negative) Urine Ketones Negative (Negative) Urine Blood Negative (Negative) Urine Nitrite Negative (Negative) Urine Bilirubin Negative (Negative) Urine Urobilinogen Negative (Negative) Ur Leukocyte Esterase Negative (Negative) Urine WBC (Auto) 1-5 (0-5) /hpf Urine RBC (Auto) 0-4 (0-4) /hpf U Hyaline Cast (Auto) 1-5 (0-5) /lpf U Epithel Cells (Auto) 20-30 H (0-5) /lpf Urine Bacteria (Auto) Negative (Negative) Stl C. diff Tox B Gene (Neg) Stl C.difficile Tox A&B (Negative) COVID-19 Eval Order SARS-CoV-2 (PCR) (Negative) Influenza Type A (PCR) (Neg) Influenza Type B (PCR) (Neg) RSV (RT-PCR) (Neg) Blood Type Antibody Screen Administered Medications Vancomycin HCl 1,250 mg/ (Sodium Chloride) 525 mls @ 200 mls/hr IV NOW ONE Stop: 10/09/20 06:44 Last Admin: 10/09/20 04:58 Dose: 200 mls/hr Documented by: [id number] Discontinued Medications Fentanyl Citrate (Fentanyl Citrate 100 Mcg/2 Ml Vial) 25 mcg IV NOW STA Stop: 10/09/20 02:53 Last Admin: 10/09/20 03:13 Dose: 25 mcg Documented by: [id number] Sodium Chloride (Nss 1000ml) 500 mls @ 999 mls/hr IV .Q31M ONE Stop: 10/09/20 03:22 Last Infusion: 10/09/20 03:52 Dose: 0 mls/hr Documented by: [id number] Admin: 10/09/20 03:11 Dose: 999 mls/hr Documented by: [id number] Sodium Chloride (Nss 1000ml) 500 mls @ 999 mls/hr IV .Q31M ONE Stop: 10/09/20 04:34 Last Infusion: 10/09/20 05:07 Dose: 0 mls/hr Documented by: [id number] Admin: 10/09/20 04:37 Dose: 999 mls/hr Documented by: [id number] Sodium Chloride (Nss) 250 mls @ 999 mls/hr IV .Q16M ONE Stop: 10/09/20 04:19 Last Infusion: 10/09/20 05:07 Dose: 0 mls/hr Documented by: [id number] Admin: 10/09/20 04:37 Dose: 999 mls/hr Documented by: [id number] Cefepime HCl (Maxipime) 2,000 mg in 20 mls @ 5 mls/min IV NOW STA Stop: 10/09/20 04:10 Last Admin: 10/09/20 04:33 Dose: 5 mls/min Documented by: [id number] Ioversol (Ioversol 100ml) 100 ml IV ONCE ONE Stop: 10/09/20 04:12 Last Admin: 10/09/20 04:11 Dose: 92 ml Documented by: [id number] Ondansetron HCl (Ondansetron Inj 2 Mg/Ml 2 Ml Vial) 4 mg IV NOW STA Stop: 10/09/20 02:53 Last Admin: 10/09/20 03:13 Dose: 4 mg Documented by: [id number] Raspberry (Raspberry Syrup 5 Ml Udp) 5 ml PO ONE STA Stop: 10/09/20 04:45 Last Admin: 10/09/20 05:08 Dose: 5 ml Documented by: [id number] Vancomycin HCl (Vancomycin Hcl 250 Mg/5 Ml Soln) 250 mg PO ONE STA Stop: 10/09/20 04:45 Last Admin: 10/09/20 05:08 Dose: 250 mg Documented by: [id number] Discharge Plan Visit Data Chief Complaint: Fever Stated Complaint: FEVER 102.2 GOING UP,CONFUSION ED Provider: En Oconnell Discharge Problem: Sepsis, Lactic acidosis, C. difficile colitis Forms Stand Alone Forms: [facility] Prescriptions Prescriptions: No Action latanoprost [Xalatan] 0.005 % Drops 1 drp OPHTHALMIC (EYE) HS RF: 0 clindamycin HCl 150 mg Capsule 600 mg PO UD PRN (Reason: prior to dental appointments) RF: 0 cyanocobalamin (vitamin B-12) [Vitamin B-12] 1,000 mcg Tablet 2,000 mcg PO 3XWK RF: 0 leflunomide [Arava] 10 mg Tablet 10 mg PO QAM RF: 0 tramadol 50 mg Tablet 50 mg PO BID PRN (Reason: Pain) RF: 0 nitroglycerin 0.4 mg Tablet, Sublingual 0.4 mg sublingual UD RF: 0 nystatin 100,000 unit/gram Powder 1 applic TOPICAL TID PRN (Reason: Rash) RF: 0 levalbuterol HCl [Xopenex] 1.25 mg/3 mL Solution For Nebulization 1.25 mg INHALATION Q4 PRN (Reason: Shortness Of Breath) RF: 0 albuterol sulfate [ProAir HFA] 90 mcg/actuation Hfa Aerosol Inhaler 2 puff INHALATION Q4 PRN (Reason: Shortness Of Breath) RF: 0 Ocuvite with Lutein 1,000 unit-200 mg-60 unit-2 mg Tablet 1 tab PO QAM RF: 0 cholecalciferol (vitamin D3) [Vitamin D3] 2,000 unit Capsule 2,000 unit PO QAM RF: 0 gabapentin 300 mg capsule 300 mg PO TID RF: 0 aspirin [Aspirin Low Dose] 81 mg Tablet,Delayed Release (Dr/Ec) 81 mg PO HS RF: 0 risedronate 35 mg tablet 35 mg PO WK RF: 0 prednisone 5 mg tablet 5 mg PO QAM RF: 0 pantoprazole 40 mg tablet,delayed release (DR/EC) 40 mg PO QAM RF: 0 folic acid 1 mg tablet 1 mg PO QAM RF: 0 montelukast 10 mg tablet 10 mg PO HS RF: 0 hydroxychloroquine 200 mg tablet 200 mg PO HS RF: 0 lisinopril 2.5 mg tablet 2.5 mg PO QAM RF: 0 metoprolol tartrate 25 mg tablet 25 mg PO BID RF: 0 duloxetine 30 mg capsule,delayed release(DR/EC) 60 mg PO DAILY RF: 0 thiamine mononitrate (vit B1) 100 mg tablet 50 mg PO QAM RF: 0 fluticasone furoate-vilanterol 100-25 mcg/dose Blister With Device 1 inh INHALATION DAILY RF: 0 Centrum Silver Women 8 mg iron-400 mcg-300 mcg Tablet 1 tab PO DAILY RF: 0 rosuvastatin 10 mg Tablet 10 mg PO DAILY RF: 0 vancomycin 125 mg Capsule 125 mg PO DIRECTED RF: 0 Discharge Problem: Sepsis Qualifiers: Sepsis type: sepsis due to unspecified organism Sepsis acute organ dysfunction status: unspecified Qualified Code(s): A41.9 - Sepsis, unspecified organism
[2020-10-09 03:18] LABS: Basophils # (auto) 0.02 K/uL (0-0.2); Basophils % (auto) 0.1 %; Eosinophils # (auto) 0.02 K/uL (0-0.5); Eosinophils % (auto) 0.1 %; Hematocrit (blood only) 39.1 % (37-47); Hemoglobin 12.9 g/dL (12.0-16.0); Immature Granulocytes # (auto) 0.07 K/uL (0.00-0.02); Immature Granulocytes % (auto) 0.5 %; Lymphocytes # (auto) 3.43 K/uL (1.2-3.4); Lymphocytes % (auto) 22.9 %; Mean Corpuscular Hemoglobin 29.3 pg (25-34); Mean Corpuscular Volume 88.7 fL (80-100); Mean Platelet Volume 10.1 fL (7.4-10.4); Monocytes % (auto) 8.7 %; Neutrophils # (auto) 10.17 K/uL (1.4-6.5); Neutrophils % (auto) 67.7 %; Platelet Count 236 K/uL (130-400); RDW Coefficient of Variation 16.8 % (11.5-14.5); RDW Standard Deviation 55.3 fL (36.4-46.3); Red Blood Count 4.41 M/uL (4.2-5.4); White Blood Count 15.01 K/uL (4.8-10.8)
[2020-10-09 03:29] LABS: Prothrombin Time 10.8 Seconds (9.0-12.0)
[2020-10-09 03:36] LABS: Alanine Aminotransferase 67 U/L (12-78); Albumin Level 2.9 gm/dl (3.4-5.0); Aspartate Aminotransferase 72 U/L (15-37); BUN Creatinine Ratio 12.1 (10-20); Bilirubin Direct 0.2 mg/dl (0-0.2); Blood Urea Nitrogen 17 mg/dl (7-18); Calcium 8.9 mg/dl (8.5-10.1); Carbon Dioxide 25 mmol/L (21-32); Chloride 102 mmol/L (98-107); Est GFR (African American) 43.5; Est GFR (Non-African American) 37.5; Glucose 101 mg/dl (70-99); Lipase 173 U/L (73-393); Magnesium 1.9 mg/dl (1.8-2.4); Potassium 4.3 mmol/L (3.5-5.1); Sodium 136 mmol/L (136-145)
[2020-10-09 03:41] LABS: Alkaline Phosphatase 200 U/L (45-117); Bilirubin,Total 0.5 mg/dl (0.2-1); Troponin I 0.025 ng/ml (0-0.045)
[2020-10-09] MEDS ORDERED: SODIUM CHLORIDE 0.9% 250 ML IV ONE (04:04)
[2020-10-09] MEDS ORDERED: VANCOMYCIN CONSULT ACTIVE PRN (04:07)
[2020-10-09] MEDS ORDERED: CEFEPIME 2,000 MG/20 ML VIAL IV STA (04:07)
[2020-10-09] MEDS ORDERED: VANCOMYCIN HCL 1,250 MG in SODIUM CHLORIDE 0.9% 500 ML IV ONE (04:07)
[2020-10-09] MEDS ORDERED: IOVERSOL 100ml IV ONE (04:11)
[2020-10-09 04:26] LABS: Influenza A virus by PCR Negative (Neg); Influenza B virus by PCR Negative (Neg); RSV by PCR Negative (Neg); SARS CoV2 RNA(COVID-19) InHosp NEGATIVE (Negative)
[2020-10-09 04:29] LABS: Appearance Urine Clear (Clear); Bacteria Urine Automated Negative (Negative); Bilirubin Urine Negative (Negative); Blood Urine Negative (Negative); Color Urine Dark Yellow; Epithelial Cell Urine Auto 20-30 /lpf (0-5); Glucose Urine UA Negative (Negative); Ketones Urine Negative (Negative); Leukocyte Esterase Urine Negative (Negative); Nitrite Urine Negative (Negative); Protein Urine 1+ (Negative); RBC Urine Automated 0-4 /hpf (0-4); Specific Gravity Urine 1.027 (1.000-1.030); Urobilinogen Urine Negative (Negative)
[2020-10-09] MEDS ORDERED: VANCOMYCIN HCL 250 MG/5 ML SOLN PO STA (04:44)
[2020-10-09] MEDS ORDERED: RASPBERRY SYRUP 5 ML UDP PO STA (04:44)
[2020-10-09 05:28] LABS: Cdiff Antigen Positive; Cdiff Toxin A+B Positive Cdiff Toxin (Negative)
--- NOTE | 2020-10-09 07:09 | XRay Report ---
XR chest 1V portable CLINICAL HISTORY: fever vomiting COMPARISON STUDY: 11/03/2019 FINDINGS: The cardiac and mediastinal contours remain stable. There is no failure. There is no focal pulmonary consolidation. There are no pleural effusions. There are postsurgical changes of a reverse total right shoulder arthroplasty[ IMPRESSION: No active disease in the chest. ACT 112: Negative or not required by law. Electronically signed by: Drew De La Cruz M.D. 10/09/2020 7:07 AM
[2020-10-09] MEDS ORDERED: NYSTATIN POWDER 15GM BTL EXT PRN (07:18)
[2020-10-09] MEDS ORDERED: NITROGLYCERIN SL 0.4 MG/TAB TAB SL SCH (07:18)
[2020-10-09] MEDS ORDERED: traMADol HCL 50 MG TABLET PO PRN (07:18)
[2020-10-09] MEDS ORDERED: ACETAMINOPHEN 325 MG TAB PO PRN (07:18)
[2020-10-09] MEDS ORDERED: LEVALBUTEROL HCL 1.25 MG/3 ML NEB INH PRN (07:18)
[2020-10-09] MEDS ORDERED: NITROGLYCERIN SL 0.4 MG/TAB TAB SL PRN (07:18)
[2020-10-09] MEDS ORDERED: ONDANSETRON INJ 2 MG/ML 2 ML VIAL IV PRN (07:18)
[2020-10-09] MEDS ORDERED: CEFEPIME CONSULT ACTIVE PRN (07:29)
--- NOTE | 2020-10-09 07:47 | CT Scan Report ---
CT abd pelvis IV con only CLINICAL HISTORY: diffuse abdominal pain, diarrhea, vomiting COMPARISON STUDY: October 2019 TECHNIQUE: The patient was scanned in a dynamic helical fashion during intravenous administration of 92 cc of Optiray 320 A dose lowering technique was utilized adhering to the principles of ALARA. CT DOSE: 366.15 mGy.cm FINDINGS: Lower chest: There is a trace right pleural effusion. The heart is borderline enlarged. There is no s ignificant pericardial fluid. There is small hiatal hernia Liver: The contrast-enhanced liver is normal in size, contour, and attenuation. There is no intrahepa tic biliary ductal dilatation. The hepatic veins and portal veins are patent. Gallbladder: The patient is status post a prior cholecystectomy. There is a gallbladder remnant versu s postsurgical fluid collection. Spleen: Normal in size and attenuation. Pancreas: Unremarkable. Adrenal glands: Unremarkable. Kidneys: Addition to bilateral renal cysts, there is a nonspecific heterogeneous focus of enhancement involving the right kidney measuring 14 mm. Bowel: There are no transition zones to indicate bowel obstruction. There is diffuse colonic wall thi ckening indicative of a pancolitis. There is no pneumatosis. The appendix appears normal. Peritoneum: There is trace free pelvic fluid. There is no free intraperitoneal air. Vasculature: The abdominal aorta is normal in course and caliber. Adenopathy: None. Pelvic viscera: The uterus is surgically absent Skeletal structures: No destructive osseous lesions are seen. IMPRESSION: 1. Motion compromised study 2. No evidence of bowel obstruction. No evidence of free air 3. Normal appendix 4. Diffuse colonic wall thickening indicative of a pancolitis 5. 14 mm heterogeneously enhancing focus within the right kidney. Diagnostic considerations include r enal neoplasm, infarct, or focal pyelonephritis. Clinical correlation and follow-up imaging is recomm ended. ACT 112: Positive. There are findings on this exam that require communication between the performing entity and the patient following Patient Test Result Information Act ([place] Act 112) guidelines. Electronically signed by: Drew De La Cruz M.D. 10/09/2020 7:45 AM
[2020-10-09] MEDS ORDERED: ALBUTEROL HFA 8 GM INHALER INH PRN (08:14)
--- NOTE | 2020-10-09 08:20 | Gastrointestinal Consultation ---
Date of Consultation October 09, 2020 Assessment & Plan (1) C. difficile colitis: This is a 75 y/o female with h/o recurrent c diff (this is her 4th bout since 2019), recently was on Zpak prior to recurrent diarrhea starting, admitted with sepsis likely related to recurrent + C diff. CT with colitis, and initially lactate elevated but has normalized with IVF. Pt feeling much improved. Abd soft, nondistended. - Continue IV ABX including Flagyl, Cefepime - Continue vancomycin 500 mg PO QID - Continue supportive care with IVF - Analgesia PRN - Would keep NPO for now - Monitor CBC, BMP - Discussed with pt in typical times, would recommend fecal transplant given her recurrent course, though due to COVID, currently these are not being done - Pt will need prolonged vancomycin taper on discharge, and follow-up with GI as an outpt toward the end of her ABX course Thank you for allowing us to participate in the care of this patient. Please call with any acute changes, questions or concerns. Please see addendum below with additional recommendation from my supervising physician. Supervising Physician Co-Signing Physician Notes Late entry: Patient was seen and examined with Bridget Shirley PA-C on 10/09. Her note reflects our findings and plan. Recurrent C diff in the setting of another recent antibiotic. Will need a long slow oral vanco taper and follow up in the office with JOSIANE Rincon History of Present Illness Reason for Consultation: recurrent c diff colitis Requesting Physician: Dr. James Gutierrez MD Attending Physician: Kimmy Velasquez MD History of Present Illness This is a 75 y/o female with PMHx DM-2, asthma/COPD, HTN, CKD, CAD and recurrent C. diff. First bout was 03/02/20, then 09/23/19, and her last positive C diff was 08/15/20 and was tx with vancomycin taper x 24 days; she was seen by our GI team as an outpt and stated her diarrhea had resolved. She was rx'd a Zpak on 08/31 for respiratory infection, and called PCP on 09/24/20 stating she again had diarrhea, and was rx'd another 24 days of vancomycin on 09/24/20. She presented to the ER this AM with diffuse cramping abd pain, nonbloody vomiting which began today, with ongoing diarrhea (> 10 foul smelling yellow/brown per day), and reported fever at home, though was afebrile in the ER. On arrival, labs notable for elevated lactate and mild leukocytosis with WBC 15k, ALP 200, creatinine 1.39, HGB 13, procal >5. C. diff positive. COVID neg. CTAP with pancolitis, no pneumatosis or obstruction. Was admitted with sepsis likely from C. diff. Was started on IVF, IV Flagyl and Cefepime, and oral vancomycin 500 mg QID. Lactate improved to 1.6. Presently pt feeling much improved; abd pain minimal currently and she is resting comfortably in bed. Denies hematemesis, melena, hematochezia, CP, SOB. EGD 03/09/19: - No endoscopic esophageal abnormality to explain patient's dysphagia. Esophagus dilated. Dilated. - Z-line regular, 35 cm from the incisors. Biopsied. - Normal stomach. Biopsied. - Normal examined duodenum. Biopsied. Colonoscopy 2017: - Severe diverticulosis in the sigmoid colon. There was narrowing of the colon in association with the diverticular opening. - No specimens collected. - The exam was otherwise normal to the cecum. Allergies Allergy/AdvReac Type Severity Reaction Status Date / Time methotrexate Allergy Intermediate RASH/PNEUMO Verified 10/09/20 04:22 NITIS Penicillins Allergy Intermediate hives Verified 10/09/20 04:22 ranitidine Allergy Intermediate rash Verified 10/09/20 04:22 Insecticides Allergy Severe DIFFICULTY Uncoded 10/09/20 04:22 BREATHING; FULL BODY SWELLING Home Medications Medication Instructions Recorded Confirmed Type duloxetine 60 mg PO DAILY 07/20/18 10/09/20 History folic acid 1 mg PO QAM 07/20/18 10/09/20 History hydroxychloroquine 200 mg PO HS 07/20/18 10/09/20 History lisinopril 2.5 mg PO QAM 07/20/18 10/09/20 History metoprolol tartrate 25 mg PO BID 07/20/18 10/09/20 History montelukast 10 mg PO HS 07/20/18 10/09/20 History pantoprazole 40 mg PO QAM 07/20/18 10/09/20 History prednisone 5 mg PO QAM 07/20/18 10/09/20 History thiamine mononitrate (vit B1) 50 mg PO QAM 07/20/18 10/09/20 History Ocuvite with Lutein 1 tab PO QAM 03/07/19 10/09/20 History albuterol sulfate [ProAir HFA] 2 puff INHALATION Q4 PRN 03/07/19 10/09/20 History cholecalciferol (vitamin D3) 2,000 unit PO QAM 03/07/19 10/09/20 History [Vitamin D3] clindamycin HCl 600 mg PO UD PRN 03/07/19 10/09/20 History cyanocobalamin (vitamin B-12) 2,000 mcg PO 3XWK 03/07/19 10/09/20 History [Vitamin B-12] latanoprost [Xalatan] 1 drp OPHTHALMIC (EYE) HS 03/07/19 10/09/20 History leflunomide [Arava] 10 mg PO QAM 03/07/19 10/09/20 History levalbuterol HCl [Xopenex] 1.25 mg INHALATION Q4 PRN 03/07/19 10/09/20 History nitroglycerin 0.4 mg SUBLINGUAL UD 03/07/19 10/09/20 History nystatin 1 applic TOPICAL TID PRN 03/07/19 10/09/20 History tramadol 50 mg PO BID PRN 03/07/19 10/09/20 History Centrum Silver Women 1 tab PO DAILY 11/12/19 10/09/20 History fluticasone furoate-vilanterol 1 inh INHALATION DAILY 11/12/19 10/09/20 History rosuvastatin 10 mg PO DAILY 11/12/19 10/09/20 History vancomycin 125 mg PO DIRECTED 11/12/19 10/09/20 History aspirin [Aspirin Low Dose] 81 mg PO HS 10/09/20 10/09/20 History gabapentin 300 mg PO TID 10/09/20 10/09/20 History risedronate 35 mg PO WK 10/09/20 10/09/20 History Patient History Medical History (Updated 10/09/20 @ 05:46 by En Oconnell MD) Asthma inhalers prn Chronic steroid use prednisone daily CKD (chronic kidney disease), stage III COPD (chronic obstructive pulmonary disease) inhalers prn Depression DJD of right shoulder DM type 2 (diabetes mellitus, type 2) Dyslipidemia Gastroparesis GERD (gastroesophageal reflux disease) Glaucoma Gout H/O interstitial lung disease "drug induced- methotrexate " Heart disease HTN (hypertension) Migraines NSTEMI (non-ST elevated myocardial infarction) (08/06/13) Osteoarthritis Peripheral neuropathy Rheumatoid arthritis "on chronic steroids" Surgical History (Updated 11/13/19 @ 21:04 by Chucho Han MD) H/O cardiac catheterization "cath 07/2013- single vessel CAD involving apical segment LAD, medical management indicated" H/O colonoscopy History of esophagogastroduodenoscopy (EGD) History of hysterectomy History of tooth extraction all top teeth S/P removal of ovarian cyst S/P rotator cuff repair "right shoulder" S/P total knee arthroplasty "left knee" Family History Father Family history of diabetes mellitus Other No family history of adverse response to anesthesia Social History Smoking Status: Never smoker Second Hand Exposure: No; Do You Dip or Chew Tobacco: No; Tobacco Cessation Education Requested by Patient: No Hx Alcohol Use: No Hx Substance Use: No Preferred Language: Azeri Communication Ability: Effective Flower Grader Required: No Beliefs That Will Affect Care: None marital status: Current Living Situation: Spouse Other Information That Helps Us Care for You: No Feels Safe at Home: Yes Safety Concerns: Feels Safe At This Time Assistive Devices: None Review of Systems Constitutional: as per Subjective / HPI, + weakness and + anorexia Respiratory: no cough and no dyspnea Cardiovascular: no chest pain and no edema Gastrointestinal: as per Subjective / HPI Physical Exam Constitutional: WD/WN, vitals as above Eyes: + anicteric sclerae Respiratory: normal respiratory effort, lungs clear to auscultation Cardiovascular: RRR, no murmur, no edema Gastrointestinal (Abdomen): Inspection/Auscultation: abdomen normal to inspection and + hyperactive bowel sounds; abdomen not distended Percussion/Palpation: abdomen soft; no guarding and abdomen not rigid minimal generalized tenderness, nondistended Skin: no rashes, warm and dry Psychiatric: A+Ox3, euthymic affect Results & Data ([place]) Vital Signs (Past 12 Hours) Vital Signs Temp Pulse Pulse Resp BP BP Pulse Ox 10/09/20 06:45 37.3 C 93 H 16 162/80 H 98 10/09/20 06:30 93 H 25 H 156/82 H 97 10/09/20 06:00 94 H 23 143/72 H 95 10/09/20 05:30 93 H 22 144/90 H 96 10/09/20 05:00 93 H 20 147/89 H 94 10/09/20 04:30 93 H 22 156/92 H 94 10/09/20 04:18 90 20 186/85 H 95 10/09/20 04:17 91 H 18 181/141 H 93 10/09/20 03:30 86 20 180/129 H 96 10/09/20 02:40 37.5 C 82 18 153/73 H 95 Laboratory Results 10/09/20 10/09/20 10/09/20 Range/Units 05:36 04:16 03:38 WBC (4.8-10.8) K/uL RBC (4.2-5.4) M/uL Hgb (12.0-16.0) g/dL Hct (37-47) % MCV (80-100) fL MCH (25-34) pg MCHC (32-36) g/dL RDW Std Deviation (36.4-46.3) fL RDW Coeff of Xochitl (11.5-14.5) % Plt Count (130-400) K/uL MPV (7.4-10.4) fL Immature Gran % (Auto) % Neut % (Auto) % Lymph % (Auto) % [place] % (Auto) % Eos % (Auto) % Baso % (Auto) % Neut # (Auto) (1.4-6.5) K/uL Lymph # (Auto) (1.2-3.4) K/uL [place] # (Auto) (0.11-0.59) K/uL Eos # (Auto) (0-0.5) K/uL Baso # (Auto) (0-0.2) K/uL Immature Gran # (Auto) (0.00-0.02) K/uL PT (9.0-12.0) Seconds INR (0.9-1.1) Sodium (136-145) mmol/L Potassium (3.5-5.1) mmol/L Chloride (98-107) mmol/L Carbon Dioxide (21-32) mmol/L Anion Gap (3-11) BUN (7-18) mg/dl Creatinine (0.6-1.2) mg/dl Est Cr Clr Drug Dosing Est GFR ( Amer) Est GFR (Non-Af Amer) BUN/Creatinine Ratio (10-20) Glucose (70-99) mg/dl Lactate 1.6 (0.4-2.0) mmol/L Calcium (8.5-10.1) mg/dl Magnesium (1.8-2.4) mg/dl Total Bilirubin (0.2-1) mg/dl Direct Bilirubin (0-0.2) mg/dl AST (15-37) U/L ALT (12-78) U/L Alkaline Phosphatase (45-117) U/L Troponin I (0-0.045) ng/ml Total Protein (6.4-8.2) gm/dl Albumin (3.4-5.0) gm/dl Lipase (73-393) U/L Procalcitonin (0-0.5) ng/ml Urine Color Dark Yellow Urine Appearance Clear (Clear) Urine pH 5.0 (4.5-7.5) Ur Specific [place] 1.027 (1.000-1.030) Urine Protein 1+ H (Negative) Urine Glucose (UA) Negative (Negative) Urine Ketones Negative (Negative) Urine Blood Negative (Negative) Urine Nitrite Negative (Negative) Urine Bilirubin Negative (Negative) Urine Urobilinogen Negative (Negative) Ur Leukocyte Esterase Negative (Negative) Urine WBC (Auto) 1-5 (0-5) /hpf Urine RBC (Auto) 0-4 (0-4) /hpf U Hyaline Cast (Auto) 1-5 (0-5) /lpf U Epithel Cells (Auto) 20-30 H (0-5) /lpf Urine Bacteria (Auto) Negative (Negative) Stl C. diff Tox B Gene (Neg) Stl C.difficile Tox A&B (Negative) COVID-19 Eval Order SARS-CoV-2 (PCR) NEGATIVE (Negative) Influenza Type A (PCR) Negative (Neg) Influenza Type B (PCR) Negative (Neg) RSV (RT-PCR) Negative (Neg) Blood Type Antibody Screen 10/09/20 10/09/20 10/09/20 Range/Units 03:38 03:21 03:20 WBC (4.8-10.8) K/uL RBC (4.2-5.4) M/uL Hgb (12.0-16.0) g/dL Hct (37-47) % MCV (80-100) fL MCH (25-34) pg MCHC (32-36) g/dL RDW Std Deviation (36.4-46.3) fL RDW Coeff of Xochitl (11.5-14.5) % Plt Count (130-400) K/uL MPV (7.4-10.4) fL Immature Gran % (Auto) % Neut % (Auto) % Lymph % (Auto) % [place] % (Auto) % Eos % (Auto) % Baso % (Auto) % Neut # (Auto) (1.4-6.5) K/uL Lymph # (Auto) (1.2-3.4) K/uL [place] # (Auto) (0.11-0.59) K/uL Eos # (Auto) (0-0.5) K/uL Baso # (Auto) (0-0.2) K/uL Immature Gran # (Auto) (0.00-0.02) K/uL PT (9.0-12.0) Seconds INR (0.9-1.1) Sodium (136-145) mmol/L Potassium (3.5-5.1) mmol/L Chloride (98-107) mmol/L Carbon Dioxide (21-32) mmol/L Anion Gap (3-11) BUN (7-18) mg/dl Creatinine (0.6-1.2) mg/dl Est Cr Clr Drug Dosing Est GFR ( Amer) Est GFR (Non-Af Amer) BUN/Creatinine Ratio (10-20) Glucose (70-99) mg/dl Lactate 3.7 H* (0.4-2.0) mmol/L Calcium (8.5-10.1) mg/dl Magnesium (1.8-2.4) mg/dl Total Bilirubin (0.2-1) mg/dl Direct Bilirubin (0-0.2) mg/dl AST (15-37) U/L ALT (12-78) U/L Alkaline Phosphatase (45-117) U/L Troponin I (0-0.045) ng/ml Total Protein (6.4-8.2) gm/dl Albumin (3.4-5.0) gm/dl Lipase (73-393) U/L Procalcitonin (0-0.5) ng/ml Urine Color Urine Appearance (Clear) Urine pH (4.5-7.5) Ur Specific [place] (1.000-1.030) Urine Protein (Negative) Urine Glucose (UA) (Negative) Urine Ketones (Negative) Urine Blood (Negative) Urine Nitrite (Negative) Urine Bilirubin (Negative) Urine Urobilinogen (Negative) Ur Leukocyte Esterase (Negative) Urine WBC (Auto) (0-5) /hpf Urine RBC (Auto) (0-4) /hpf U Hyaline Cast (Auto) (0-5) /lpf U Epithel Cells (Auto) (0-5) /lpf Urine Bacteria (Auto) (Negative) Stl C. diff Tox B Gene Positive Cdiff Gene H (Neg) Stl C.difficile Tox A&B Positive Cdiff Toxin A* (Negative) COVID-19 Eval Order CovFluRsv at [facility] SARS-CoV-2 (PCR) (Negative) Influenza Type A (PCR) (Neg) Influenza Type B (PCR) (Neg) RSV (RT-PCR) (Neg) Blood Type Antibody Screen 10/09/20 10/09/20 10/09/20 Range/Units 03:05 03:05 03:05 WBC 15.01 H (4.8-10.8) K/uL RBC 4.41 (4.2-5.4) M/uL Hgb 12.9 (12.0-16.0) g/dL Hct 39.1 (37-47) % MCV 88.7 (80-100) fL MCH 29.3 (25-34) pg MCHC 33.0 (32-36) g/dL RDW Std Deviation 55.3 H (36.4-46.3) fL RDW Coeff of Xochitl 16.8 H (11.5-14.5) % Plt Count 236 (130-400) K/uL MPV 10.1 (7.4-10.4) fL Immature Gran % (Auto) 0.5 % Neut % (Auto) 67.7 % Lymph % (Auto) 22.9 % [place] % (Auto) 8.7 % Eos % (Auto) 0.1 % Baso % (Auto) 0.1 % Neut # (Auto) 10.17 H (1.4-6.5) K/uL Lymph # (Auto) 3.43 H (1.2-3.4) K/uL [place] # (Auto) 1.30 H (0.11-0.59) K/uL Eos # (Auto) 0.02 (0-0.5) K/uL Baso # (Auto) 0.02 (0-0.2) K/uL Immature Gran # (Auto) 0.07 H (0.00-0.02) K/uL PT 10.8 (9.0-12.0) Seconds INR 1.0 (0.9-1.1) Sodium 136 (136-145) mmol/L Potassium 4.3 (3.5-5.1) mmol/L Chloride 102 (98-107) mmol/L Carbon Dioxide 25 (21-32) mmol/L Anion Gap 9.0 (3-11) BUN 17 (7-18) mg/dl Creatinine 1.39 H (0.6-1.2) mg/dl Est Cr Clr Drug Dosing Not Reportable Est GFR ( Amer) 43.5 Est GFR (Non-Af Amer) 37.5 BUN/Creatinine Ratio 12.1 (10-20) Glucose 101 H (70-99) mg/dl Lactate (0.4-2.0) mmol/L Calcium 8.9 (8.5-10.1) mg/dl Magnesium 1.9 (1.8-2.4) mg/dl Total Bilirubin 0.5 (0.2-1) mg/dl Direct Bilirubin 0.2 (0-0.2) mg/dl AST 72 H (15-37) U/L ALT 67 (12-78) U/L Alkaline Phosphatase 200 H (45-117) U/L Troponin I 0.025 (0-0.045) ng/ml Total Protein 7.0 (6.4-8.2) gm/dl Albumin 2.9 L (3.4-5.0) gm/dl Lipase 173 (73-393) U/L Procalcitonin (0-0.5) ng/ml Urine Color Urine Appearance (Clear) Urine pH (4.5-7.5) Ur Specific [place] (1.000-1.030) Urine Protein (Negative) Urine Glucose (UA) (Negative) Urine Ketones (Negative) Urine Blood (Negative) Urine Nitrite (Negative) Urine Bilirubin (Negative) Urine Urobilinogen (Negative) Ur Leukocyte Esterase (Negative) Urine WBC (Auto) (0-5) /hpf Urine RBC (Auto) (0-4) /hpf U Hyaline Cast (Auto) (0-5) /lpf U Epithel Cells (Auto) (0-5) /lpf Urine Bacteria (Auto) (Negative) Stl C. diff Tox B Gene (Neg) Stl C.difficile Tox A&B (Negative) COVID-19 Eval Order SARS-CoV-2 (PCR) (Negative) Influenza Type A (PCR) (Neg) Influenza Type B (PCR) (Neg) RSV (RT-PCR) (Neg) Blood Type Antibody Screen 10/09/20 10/09/20 Range/Units 03:05 03:05 WBC (4.8-10.8) K/uL RBC (4.2-5.4) M/uL Hgb (12.0-16.0) g/dL Hct (37-47) % MCV (80-100) fL MCH (25-34) pg MCHC (32-36) g/dL RDW Std Deviation (36.4-46.3) fL RDW Coeff of Xochitl (11.5-14.5) % Plt Count (130-400) K/uL MPV (7.4-10.4) fL Immature Gran % (Auto) % Neut % (Auto) % Lymph % (Auto) % [place] % (Auto) % Eos % (Auto) % Baso % (Auto) % Neut # (Auto) (1.4-6.5) K/uL Lymph # (Auto) (1.2-3.4) K/uL [place] # (Auto) (0.11-0.59) K/uL Eos # (Auto) (0-0.5) K/uL Baso # (Auto) (0-0.2) K/uL Immature Gran # (Auto) (0.00-0.02) K/uL PT (9.0-12.0) Seconds INR (0.9-1.1) Sodium (136-145) mmol/L Potassium (3.5-5.1) mmol/L Chloride (98-107) mmol/L Carbon Dioxide (21-32) mmol/L Anion Gap (3-11) BUN (7-18) mg/dl Creatinine (0.6-1.2) mg/dl Est Cr Clr Drug Dosing Est GFR ( Amer) Est GFR (Non-Af Amer) BUN/Creatinine Ratio (10-20) Glucose (70-99) mg/dl Lactate (0.4-2.0) mmol/L Calcium (8.5-10.1) mg/dl Magnesium (1.8-2.4) mg/dl Total Bilirubin (0.2-1) mg/dl Direct Bilirubin (0-0.2) mg/dl AST (15-37) U/L ALT (12-78) U/L Alkaline Phosphatase (45-117) U/L Troponin I (0-0.045) ng/ml Total Protein (6.4-8.2) gm/dl Albumin (3.4-5.0) gm/dl Lipase (73-393) U/L Procalcitonin 5.97 H (0-0.5) ng/ml Urine Color Urine Appearance (Clear) Urine pH (4.5-7.5) Ur Specific [place] (1.000-1.030) Urine Protein (Negative) Urine Glucose (UA) (Negative) Urine Ketones (Negative) Urine Blood (Negative) Urine Nitrite (Negative) Urine Bilirubin (Negative) Urine Urobilinogen (Negative) Ur Leukocyte Esterase (Negative) Urine WBC (Auto) (0-5) /hpf Urine RBC (Auto) (0-4) /hpf U Hyaline Cast (Auto) (0-5) /lpf U Epithel Cells (Auto) (0-5) /lpf Urine Bacteria (Auto) (Negative) Stl C. diff Tox B Gene (Neg) Stl C.difficile Tox A&B (Negative) COVID-19 Eval Order SARS-CoV-2 (PCR) (Negative) Influenza Type A (PCR) (Neg) Influenza Type B (PCR) (Neg) RSV (RT-PCR) (Neg) Blood Type A Negative Antibody Screen NEGATIVE Diagnostic Findings CTAP: 1. Motion compromised study 2. No evidence of bowel obstruction. No evidence of free air 3. Normal appendix 4. Diffuse colonic wall thickening indicative of a pancolitis 5. 14 mm heterogeneously enhancing focus within the right kidney. Diagnostic considerations include renal neoplasm, infarct, or focal pyelonephritis. Clinical correlation and follow-up imaging is recommended. CXR: IMPRESSION: No active disease in the chest.
--- NOTE | 2020-10-09 08:44 | History and Physical Report ---
DATE OF ADMISSION: 10/09/2020 CHIEF COMPLAINT: Abdominal pain, diarrhea and fever. HISTORY OF PRESENT ILLNESS: This is a 75-year-old female with past medical history significant for recurrent C. 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 The patient has chronic diarrhea and patient had recurrent C. diff in the past, last 2 days she is having several episodes of diarrhea and also abdominal pain, 10/10 severity like a band-like feeling. She had episodes of vomiting today and had a fever of 102. Denies any cough, no chest pain, no shortness of breath, no loss of sense of smell or taste. Has some headaches, always has some double vision. No earaches, no runny nose, no sore throat. Appetite is down last few days. No difficulty swallowing. Does not ambulate much and losing balance and helps her. Normal bladder movements. In the ER, hemodynamics are okay. Her white count is 15. Her lactic acid came as 3.7, repeat is 1.6. Stool for C. diff is positive. SARS-CoV-2 and influenza A and B and RSV are negative. CT of abdomen and pelvis is showing colitis. ALLERGIES: METHOTREXATE, PENICILLIN, RANITIDINE AND INSECTICIDES. PAST MEDICAL HISTORY: As mentioned above. PAST SURGICAL HISTORY: Left total knee arthroplasty, cardiac catheterization, colonoscopy, EGDs, injection of lumbosacral spine, laparoscopic cholecystectomy, removal of oviducts, cataract surgery, right total shoulder arthroplasty, rotator cuff repair, total abdominal hysterectomy with removal of tubes. MEDICATIONS: The patient is on albuterol 2 puffs inhalation every 4 hours p.r.n., aspirin 81 mg p.o. at bedtime, Centrum Silver 1 tablet daily, vitamin D3 2000 units p.o. a.m., clindamycin p.r.n., vitamin B12 2000 mcg p.o. 3 times a week, duloxetine 60 mg p.o. daily, fluticasone furoate vilanterol 1 inhalation daily, folic acid 1 mg p.o. a.m., gabapentin 300 mg p.o. t.i.d., hydroxychloroquine 200 mg p.o. at bedtime, latanoprost 1 drop ophthalmic eye p.o. at bedtime, leflunomide 10 mg p.o. a.m., Xopenex 1.25 mg inhalation q. 4 hours p.r.n., lisinopril 2.5 mg p.o. a.m., metoprolol tartrate 25 mg p.o. b.i.d., montelukast 10 mg at bedtime, nitroglycerin 0.4 mg sublingual p.r.n., nystatin 1 application topically t.i.d. p.r.n., Ocuvite with Lutein 1 tablet p.o. a.m., Protonix 40 mg p.o. a.m., prednisone 5 mg p.o. a.m., risedronate 35 mg p.o. weekly, rosuvastatin 10 mg p.o. daily, thiamine mononitrate 50 mg p.o. a.m., tramadol 50 mg p.o. b.i.d. p.r.n. FAMILY HISTORY: Significant for father has arthritis, stroke. Mother has stroke, breast cancer, glaucoma, heart disorder. SOCIAL HISTORY: , lives with . No smoking. Alcohol occasional. No drug use. REVIEW OF SYMPTOMS: As per HPI. Rest of review of symptoms negative. PHYSICAL EXAMINATION: GENERAL: The patient is of moderate build, not in acute distress. VITAL SIGNS: Temperature 37.5, pulse 94, respiratory rate 23, blood pressure 143/72, oxygen 95% on room air. HEENT: Pupils equal, round, reactive to light. Oral mucosa moist. NECK: No neck masses. CARDIOVASCULAR: S1, S2, heard, regular rate and rhythm, no murmur, no gallop. RESPIRATORY SYSTEM: Normal AP diameter. No accessory muscle use. No wheezing, no crackles. ABDOMEN: Soft, bowel sounds present. Nontender. No distention, no guarding, no rigidity. CENTRAL NERVOUS SYSTEM: Cranial nerves II through XII grossly intact, nonfocal. EXTREMITIES: No edema, no erythema. SKIN: Has healing shingles on the left side of the chest and front of the back. LABORATORY DATA: WBC 15, hemoglobin 12.9, hematocrit 39.1, platelets 236. PT 10.8, INR 1. Sodium 136, potassium 4.3, chloride 102, bicarbonate 25, BUN 17, creatinine 1.39, serum glucose 101, lactate initially was 3.7, repeat is 1.6, calcium 8.9, magnesium 1.9, total bilirubin 0.5, total bilirubin 0.2, AST 72, ALT 67, alkaline phosphatase 200. Troponin I 0.025. Lipase 173. Procalcitonin 5.97. Urinalysis negative. Stool for C. diff positive. SARS-CoV-2 PCR negative. Influenza A and B PCR negative, RSV PCR negative. IMAGING: CT of abdomen and pelvis shows preliminary report focal 2 cm parenchymal hypodensity in upper right kidney, which maybe focal pyelonephritis, or less likely renal neoplasm and diffuse colonic thickening with mild adjacent stranding suggesting colitis. Chest x-ray, no acute findings. EKG: Normal sinus rhythm, rate of 86, right bundle branch block. Continue T-wave abnormality in inferior leads. ASSESSMENT AND PLAN: This is a 75-year-old female who presents with fever, abdominal pain and diarrhea. 1. Sepsis. The patient meets criteria for sepsis with fever at home and elevated white count and C. diff positive and elevated lactic acid. She also has abdominal pain, diarrhea, history of C. diff in the past, C. diff is positive here again. CAT scan showing colitis.In ER, given empirically iv vancomycin and cefepime and p.o. vancomycin. We will continue with IV cefepime for possible pyelo and also IV Flagyl and p.o. vancomycin for C. diff colitis and we will keep her n.p.o., IV fluids and consult GI for further recommendations. 2. Possible pyelonephritis on preliminary report on CAT scan. Follow the final report. Empirically put on 2 days of cefepime. We will follow the cultures .Stop the cefepime if the cultures are negative. 3. History of rheumatoid arthritis, on leflunomide and Plaquenil and also prednisone 5 mg [address] daily. Will place her to IV Solu-Medrol 20 mg b.i.d. for stress dose. Once the sepsis is completely resolved we can change back to prednisone 5 mg daily. 4. Diabetes, not on medication, follow hemoglobin A1c levels, follow the blood sugars. ISS. Currently n.p.o. 5. History of chronic obstructive pulmonary disease, history of interstitial lung disease and asthma. Continue home inhalers, currently stable. 6. Hyperlipidemia. Continue statin. 7. Gastroesophageal reflux disease. Continue Protonix. 8. Vitamin deficiency, continue thiamine and B12 supplements. 9. Depression. Continue Cymbalta. 10. Hypertension. Continue lisinopril with holding parameters. 11. Recent shingles that are healing up, started on gabapentin. We will continue for now. 12. Acute kidney injury on chronic kidney disease stage III. Baseline creatinine around 1-1.3, presents with creatinine of 1.39, getting fluids. Follow the labs. 13. Deep venous thrombosis prophylaxis, sequential compression devices for now. 14. Disposition: Closely monitor in the tele floor. Level 1 full code as per discussion with the patient. PT and OT prior to discharge. Social service to help with discharge planning. LITZYD
[2020-10-09] MEDS: DULoxetine HCL 60 MG CAP PO SCH (08:45)
[2020-10-09] MEDS: FOLIC ACID 1 MG TAB PO SCH (08:45)
[2020-10-09] MEDS: THIAMINE HCL 50 MG TABLET PO SCH (08:46)
[2020-10-09] MEDS: LEFLUNOMIDE 10 MG TAB PO SCH (08:46)
[2020-10-09] MEDS: ROSUVASTATIN CALCIUM 10 MG TAB PO SCH (08:46)
[2020-10-09] MEDS: METOPROLOL TARTRATE 25 MG TAB PO SCH ×2 (08:46→20:29)
[2020-10-09] MEDS: CHOLECALCIFEROL 1,000 UNITS 25 MCG TAB PO SCH (08:47)
[2020-10-09] MEDS: CEROVITE ADV FORMULA TAB PO SCH (08:47)
[2020-10-09] MEDS: GABAPENTIN 300 MG CAP PO SCH ×3 (08:47→20:29)
[2020-10-09] MEDS: metroNIDAZOLE 500 MG/100 ML BAG IV SCH ×3 (08:47→23:22)
[2020-10-09] MEDS: FLUTICASONE/VILANTEROL 100/25MCG 14 PUFFS/INHALER INH SCH (08:48)
[2020-10-09] MEDS: SODIUM CHLORIDE 0.9% 1000ML 1,000 ML IV SCH ×3 (08:48→18:11)
[2020-10-09] MEDS ORDERED: NON-FORMULARY MEDICATION (Vit A,C And E-Lutein-Minerals [Ocuvite With Lutein] 1,000 unit-2 PO SCH (09:00)
[2020-10-09] MEDS ORDERED: PANTOprazole 40 MG TAB PO SCH (09:00)
[2020-10-09] MEDS ORDERED: methylPREDNISolone 20 MG in SYRINGE 0 ML IV SCH (09:00)
[2020-10-09] MEDS ORDERED: lisinopril 2.5 MG TAB PO SCH (09:00)
[2020-10-09] MEDS ORDERED: CARBOHYDRATES FOR HYPOGLYCEMIA PO PRN (09:30)
[2020-10-09] MEDS ORDERED: GLUCOSE 40% GEL 15 GM TUBE PO PRN (09:30)
[2020-10-09] MEDS ORDERED: DEXTROSE 50% 50 ML SYRINGE IV PRN (09:30)
[2020-10-09] MEDS ORDERED: GLUCOSE 10 TABS/TUBE PO PRN (09:30)
[2020-10-09] MEDS ORDERED: GLUCAGON FOR INJ 1 MG VIAL IM PRN (09:30)
[2020-10-09] MEDS: RASPBERRY SYRUP 5 ML UDP PO SCH ×4 (09:41→23:21)
[2020-10-09] MEDS: VANCOMYCIN HCL 500 MG/10 ML SOLN PO SCH ×4 (09:41→23:21)
--- NOTE | 2020-10-09 11:24 | Electrocardiogram Report ---
Test Reason : Blood Pressure : / mmHG Vent. Rate : 086 BPM Atrial Rate : 086 BPM P-R Int : 148 ms QRS Dur : 112 ms QT Int : 378 ms P-R-T Axes : 000 051 -09 degrees QTc Int : 452 ms Poor data quality, interpretation may be adversely affected Normal sinus rhythm Low voltage QRS Right bundle branch block T wave abnormality, consider inferior ischemia Abnormal ECG When compared with ECG of 11-NOV-2019 18:24, Left posterior fascicular block is no longer Present Minimal criteria for Inferior infarct are no longer Present T wave inversion no longer evident in Lateral leads Confirmed by Tesfaye Singh ([id number]) on 10/09/2020 11:24:34 AM Referred By: REFERRED SELF Confirmed By:Av Singh
[2020-10-09] MEDS: INSULIN ASPART 100 UNITS/ML 3 ML PEN SC SCH ×3 (11:50→21:23)
--- NOTE | 2020-10-09 17:16 | Hospitalist Progress Note ---
Date of Service October 09, 2020 Assessment & Plan (1) Recurrent Clostridium difficile diarrhea: ASSESSMENT AND PLAN: This is a 75-year-old female who presents with fever, abdominal pain and diarrhea. 1. Sepsis, secondary to C diff Colitis continues to improve continue Vancomycin PO, will need prolonged taper GI consulted, appreciate the recommendations on clear liquid diet 2. Possible Renal Mass UA: no UTI Urologist consulted, outpatient work up 3. History of rheumatoid arthritis, on leflunomide and Plaquenil -kept on hold for acute illness prednisone 5 mg p.o. daily. on IV Solu-Medrol 20 mg b.i.d. for stress dose. --> transition to Prednisone 5mg po daily 4. Diabetes, not on medication, a1c 5.6 blood sugars. ISS 5. History of chronic obstructive pulmonary disease, history of interstitial lung disease and asthma. - stable 6. Hyperlipidemia. Continue statin. 7. Gastroesophageal reflux disease. Continue Protonix. 8. Vitamin deficiency, continue thiamine and B12 supplements. 9. Depression. Continue Cymbalta. 10. Hypertension. stable 11. Recent shingles that are healing up, started on gabapentin. - 12. Acute kidney injury on chronic kidney disease stage III. Baseline creatinine around 1-1.3, presents with creatinine of 1.39 - resolved with IV fluids 13. Deep venous thrombosis prophylaxis, sequential compression devices for now. Encouraged to ambulate 14. Disposition: expected to be discharged when medically stable Admission and Anticipated Discharge Date Admission Date: October 09, 2020 Subjective No further abd pain. Continues with diarrhea; had 3 loose BMs since last night. tolerating liquid diet this AM. Review of Systems Review of Systems: All systems reviewed & are unremarkable except as noted in Subjective Physical Exam Constitutional: WD/WN, vitals as above Eyes: PERRL, conjunctivae normal, anicteric sclerae ENMT: external ear and nose normal, oropharynx normal Neck: trachea midline, no thyromegaly Respiratory: normal respiratory effort, lungs clear to auscultation Cardiovascular: RRR, no murmur, no edema Gastrointestinal (Abdomen): Percussion/Palpation: abdomen soft Skin: no rashes, warm and dry Neurologic: PERRL, EOMI, accommodation nl, no face palsy, no dysarthria Psychiatric: A+Ox3, euthymic affect Results & Data Results & Data ([facility]) Vital Signs (Past 12 Hours) Vital Signs Temp Pulse Pulse Resp BP BP Pulse Ox 10/09/20 16:45 36.6 C 63 18 148/61 H 97 10/09/20 15:59 36.7 C 66 20 111/58 L 95 10/09/20 11:22 37.3 C 69 18 116/65 94 10/09/20 08:00 89 10/09/20 06:45 37.3 C 93 H 16 162/80 H 98 10/09/20 06:30 93 H 25 H 156/82 H 97 10/09/20 06:00 94 H 23 143/72 H 95 10/09/20 05:30 93 H 22 144/90 H 96
[2020-10-09] MEDS: MONTELUKAST SODIUM 10 MG TABLET PO SCH (20:29)
[2020-10-09] MEDS: ASPIRIN 81 MG ECTAB PO SCH (20:29)
[2020-10-09] MEDS: LATANOPROST 0.005% OP SOLN 2.5 ML BTL OP SCH (20:30)
[2020-10-09] MEDS ORDERED: HYDROXYCHLOROQUINE SULFATE 200 MG TAB PO SCH (21:00)
[2020-10-10] MEDS: SODIUM CHLORIDE 0.9% 1000ML 1,000 ML IV SCH ×3 (03:08→23:27)
[2020-10-10] MEDS ORDERED: CEFEPIME 2,000 MG in SYRINGE 0 ML IV SCH (04:00)
[2020-10-10 05:40] LABS: Eosinophils # (auto) 0.01 K/uL (0-0.5); Eosinophils % (auto) 0.2 %; Hematocrit (blood only) 30.1 % (37-47); Hemoglobin 9.9 g/dL (12.0-16.0); Lymphocytes # (auto) 0.87 K/uL (1.2-3.4); Lymphocytes % (auto) 16.1 %; Mean Corpuscular Hemoglobin 28.9 pg (25-34); Mean Corpuscular Hgb Conc 32.9 g/dL (32-36); Mean Corpuscular Volume 87.8 fL (80-100); Mean Platelet Volume 9.7 fL (7.4-10.4); Monocytes % (auto) 11.1 %; Neutrophils # (auto) 3.93 K/uL (1.4-6.5); Neutrophils % (auto) 72.6 %; Platelet Count 143 K/uL (130-400); RDW Standard Deviation 55.6 fL (36.4-46.3); Red Blood Count 3.43 M/uL (4.2-5.4); White Blood Count 5.41 K/uL (4.8-10.8)
[2020-10-10] MEDS: VANCOMYCIN HCL 500 MG/10 ML SOLN PO SCH ×4 (05:43→23:29)
[2020-10-10] MEDS: RASPBERRY SYRUP 5 ML UDP PO SCH ×4 (05:43→23:29)
[2020-10-10 06:06] LABS: Albumin Level 1.9 gm/dl (3.4-5.0); BUN Creatinine Ratio 15.6 (10-20); Bilirubin Direct 0.1 mg/dl (0-0.2); Calcium 7.5 mg/dl (8.5-10.1); Creatinine Clr Calc Pharmacy 37.1 ml/min; Est GFR (Non-African American) 50.9; Magnesium 1.7 mg/dl (1.8-2.4); Potassium 3.5 mmol/L (3.5-5.1)
[2020-10-10 06:08] LABS: Bilirubin,Total 0.3 mg/dl (0.2-1); Total Protein 5.1 gm/dl (6.4-8.2)
[2020-10-10 07:23] LABS: Estimated Average Glucose 114 mg/dl; Hemoglobin A1C 5.6 % (4.5-5.6)
[2020-10-10] MEDS: GABAPENTIN 300 MG CAP PO SCH ×3 (08:29→21:10)
[2020-10-10] MEDS: CYANOCOBALAMIN 500 MCG TABLET (VITAMIN B-12) PO SCH (08:30)
[2020-10-10] MEDS: CHOLECALCIFEROL 1,000 UNITS 25 MCG TAB PO SCH (08:30)
[2020-10-10] MEDS: CEROVITE ADV FORMULA TAB PO SCH (08:31)
[2020-10-10] MEDS: FOLIC ACID 1 MG TAB PO SCH (08:31)
[2020-10-10] MEDS: METOPROLOL TARTRATE 25 MG TAB PO SCH ×2 (08:31→21:10)
[2020-10-10] MEDS: DULoxetine HCL 60 MG CAP PO SCH (08:31)
[2020-10-10] MEDS: THIAMINE HCL 50 MG TABLET PO SCH (08:31)
[2020-10-10] MEDS: ROSUVASTATIN CALCIUM 10 MG TAB PO SCH (08:31)
[2020-10-10] MEDS: LEFLUNOMIDE 10 MG TAB PO SCH (08:32)
[2020-10-10] MEDS: INSULIN ASPART 100 UNITS/ML 3 ML PEN SC SCH ×4 (08:35→21:12)
[2020-10-10] MEDS: FLUTICASONE/VILANTEROL 100/25MCG 14 PUFFS/INHALER INH SCH (08:36)
[2020-10-10] MEDS: metroNIDAZOLE 500 MG/100 ML BAG IV SCH ×3 (08:51→23:28)
--- NOTE | 2020-10-10 11:46 | Gastroenterology Progress Note ---
Date of Service October 10, 2020 Assessment & Plan (1) C. difficile colitis: This is a 75 y/o female with h/o recurrent c diff (this is her 4th bout since 2019), recently was on Zpak prior to recurrent diarrhea starting, admitted with sepsis likely related to recurrent + C diff. CT with colitis, and initially lactate elevated but has normalized with IVF. Pt feeling much improved. Abd soft, nondistended. Continues with some diarrhea. WBC remains normal. - Continue IV ABX including Flagyl, on Cefepime for possible UTI - Continue vancomycin 500 mg PO QID - Continue supportive care with IVF - Analgesia PRN - Ok for clears, can advance to full liquids if tolerated - Monitor CBC, BMP - Discussed with pt typically we would recommend fecal transplant given her recurrent course, though due to COVID, currently these are not being done - Pt will need prolonged vancomycin taper on discharge, and follow-up with GI as an outpt toward the end of her ABX course. We are arranging outpt f/u. - Vanco taper on discharge as follows: - 125 mg orally 4 times daily for 14 days - Then 125 mg orally twice daily for 7 days - Then 125 mg orally once daily for 7 days, - Then 125 mg orally every other day for 6 weeks GI will sign off, please call with questions. Admission and Anticipated Discharge Date Admission Date: October 09, 2020 Supervising Physician Co-Signing Physician Notes Late entry: Patient was seen and examined with Bridget Shirley PA-C on 10/10. Her note reflects our findings and plan. Recurrent C diff in the setting of another recent antibiotic. Will need a long slow oral vanco taper and follow up in the office with JOSIANE Rincon Subjective Patient seen and examined, chart reviewed. Feeling much better today. No further abd pain. Continues with diarrhea; had 3 loose BMs since last night. Tolerated liquid diet this AM. Denies fever, nausea, vomiting, melena, hematochezia, CP, SOB. Labs stable; WBC 5k; BC final results pending. Review of Systems Review of Systems: All systems reviewed & are unremarkable except as noted in HPI & below Physical Exam Constitutional: WD/WN, vitals as above Eyes: + anicteric sclerae Respiratory: normal respiratory effort Cardiovascular: Rate/Rhythm: regular rate and regular rhythm Gastrointestinal (Abdomen): Inspection/Auscultation: abdomen normal to inspection; abdomen not distended Percussion/Palpation: abdomen soft; no guarding and abdomen not rigid BS still somewhat hyperactive but improved from yesterday Skin: no rashes, warm and dry Psychiatric: A+Ox3, euthymic affect Results & Data ([facility]) Vital Signs (Past 12 Hours) Vital Signs Temp Pulse Resp BP Pulse Ox 10/10/20 08:07 36.6 C 61 18 126/66 98 Laboratory Results 10/10/20 10/10/20 10/10/20 Range/Units 08:34 05:22 05:22 WBC 5.41 (4.8-10.8) K/uL RBC 3.43 L (4.2-5.4) M/uL Hgb 9.9 L D (12.0-16.0) g/dL Hct 30.1 L (37-47) % MCV 87.8 (80-100) fL MCH 28.9 (25-34) pg MCHC 32.9 (32-36) g/dL RDW Std Deviation 55.6 H (36.4-46.3) fL RDW Coeff of Xochitl 17.0 H (11.5-14.5) % Plt Count 143 (130-400) K/uL MPV 9.7 (7.4-10.4) fL Immature Gran % (Auto) 0.0 % Neut % (Auto) 72.6 % Lymph % (Auto) 16.1 % [place] % (Auto) 11.1 % Eos % (Auto) 0.2 % Baso % (Auto) 0.0 % Neut # (Auto) 3.93 (1.4-6.5) K/uL Lymph # (Auto) 0.87 L (1.2-3.4) K/uL [place] # (Auto) 0.60 H (0.11-0.59) K/uL Eos # (Auto) 0.01 (0-0.5) K/uL Baso # (Auto) 0.00 (0-0.2) K/uL Immature Gran # (Auto) 0.00 (0.00-0.02) K/uL Sodium (136-145) mmol/L Potassium (3.5-5.1) mmol/L Chloride (98-107) mmol/L Carbon Dioxide (21-32) mmol/L Anion Gap (3-11) BUN (7-18) mg/dl Creatinine (0.6-1.2) mg/dl Est Cr Clr Drug Dosing ml/min Est GFR ( Amer) Est GFR (Non-Af Amer) BUN/Creatinine Ratio (10-20) Glucose (70-99) mg/dl POC Glucose 79 (70-99) mg/dl Estimat Average Glucose 114 mg/dl Hemoglobin A1c 5.6 (4.5-5.6) % Calcium (8.5-10.1) mg/dl Magnesium (1.8-2.4) mg/dl Total Bilirubin (0.2-1) mg/dl Direct Bilirubin (0-0.2) mg/dl AST (15-37) U/L ALT (12-78) U/L Alkaline Phosphatase (45-117) U/L Total Protein (6.4-8.2) gm/dl Albumin (3.4-5.0) gm/dl 10/10/20 10/09/20 10/09/20 Range/Units 05:22 20:26 17:39 WBC (4.8-10.8) K/uL RBC (4.2-5.4) M/uL Hgb (12.0-16.0) g/dL Hct (37-47) % MCV (80-100) fL MCH (25-34) pg MCHC (32-36) g/dL RDW Std Deviation (36.4-46.3) fL RDW Coeff of Xochitl (11.5-14.5) % Plt Count (130-400) K/uL MPV (7.4-10.4) fL Immature Gran % (Auto) % Neut % (Auto) % Lymph % (Auto) % [place] % (Auto) % Eos % (Auto) % Baso % (Auto) % Neut # (Auto) (1.4-6.5) K/uL Lymph # (Auto) (1.2-3.4) K/uL [place] # (Auto) (0.11-0.59) K/uL Eos # (Auto) (0-0.5) K/uL Baso # (Auto) (0-0.2) K/uL Immature Gran # (Auto) (0.00-0.02) K/uL Sodium 141 (136-145) mmol/L Potassium 3.5 D (3.5-5.1) mmol/L Chloride 113 H (98-107) mmol/L Carbon Dioxide 22 (21-32) mmol/L Anion Gap 6.0 (3-11) BUN 17 (7-18) mg/dl Creatinine 1.08 (0.6-1.2) mg/dl Est Cr Clr Drug Dosing 37.1 ml/min Est GFR ( Amer) 59.0 Est GFR (Non-Af Amer) 50.9 BUN/Creatinine Ratio 15.6 (10-20) Glucose 94 (70-99) mg/dl POC Glucose 147 H 185 H (70-99) mg/dl Estimat Average Glucose mg/dl Hemoglobin A1c (4.5-5.6) % Calcium 7.5 L D (8.5-10.1) mg/dl Magnesium 1.7 L (1.8-2.4) mg/dl Total Bilirubin 0.3 (0.2-1) mg/dl Direct Bilirubin 0.1 (0-0.2) mg/dl AST 35 (15-37) U/L ALT 39 (12-78) U/L Alkaline Phosphatase 116 (45-117) U/L Total Protein 5.1 L D (6.4-8.2) gm/dl Albumin 1.9 L (3.4-5.0) gm/dl 10/09/20 Range/Units 16:31 WBC (4.8-10.8) K/uL RBC (4.2-5.4) M/uL Hgb (12.0-16.0) g/dL Hct (37-47) % MCV (80-100) fL MCH (25-34) pg MCHC (32-36) g/dL RDW Std Deviation (36.4-46.3) fL RDW Coeff of Xochitl (11.5-14.5) % Plt Count (130-400) K/uL MPV (7.4-10.4) fL Immature Gran % (Auto) % Neut % (Auto) % Lymph % (Auto) % [place] % (Auto) % Eos % (Auto) % Baso % (Auto) % Neut # (Auto) (1.4-6.5) K/uL Lymph # (Auto) (1.2-3.4) K/uL [place] # (Auto) (0.11-0.59) K/uL Eos # (Auto) (0-0.5) K/uL Baso # (Auto) (0-0.2) K/uL Immature Gran # (Auto) (0.00-0.02) K/uL Sodium (136-145) mmol/L Potassium (3.5-5.1) mmol/L Chloride (98-107) mmol/L Carbon Dioxide (21-32) mmol/L Anion Gap (3-11) BUN (7-18) mg/dl Creatinine (0.6-1.2) mg/dl Est Cr Clr Drug Dosing ml/min Est GFR ( Amer) Est GFR (Non-Af Amer) BUN/Creatinine Ratio (10-20) Glucose (70-99) mg/dl POC Glucose 195 H (70-99) mg/dl Estimat Average Glucose mg/dl Hemoglobin A1c (4.5-5.6) % Calcium (8.5-10.1) mg/dl Magnesium (1.8-2.4) mg/dl Total Bilirubin (0.2-1) mg/dl Direct Bilirubin (0-0.2) mg/dl AST (15-37) U/L ALT (12-78) U/L Alkaline Phosphatase (45-117) U/L Total Protein (6.4-8.2) gm/dl Albumin (3.4-5.0) gm/dl
--- NOTE | 2020-10-10 12:59 | Urology Consultation ---
Date of Consultation October 10, 2020 Assessment & Plan (1) Renal cyst, right: 75 yo F admitted for fever, abdominal pain and diarrhea secondary to C. difficile colitis, incidental finding of 14 mm right renal lesion. - Past medical history and hospital course reviewed - Afebrile, VSS, lab work reviewed - Creatinine and WBC within normal limits, nontoxic - Case and CT A/P reviewed with Dr. Boyd - small right renal lesion - No acute intervention necessary at this time, allow recovery from acute illness - No history of hematuria, UA negative for blood during admission - Will arrange outpatient follow-up with our service with repeat imaging in about 3 months - She is agreeable with the plan, all questions answered Thank you for allowing us to participate in the acute care of Mrs. Rodriguez. Please reconsult us with additional questions, concerns or changes in patient status. History of Present Illness Reason for Consultation: Right renal heterogenous focus, possible neoplasm Requesting Physician: Dr. Johnson Attending Physician: Deven Johnson MD History of Present Illness 75 yo F admitted for fever, abdominal pain and diarrhea secondary to C. difficile colitis. PMHx type 2 diabetes, asthma/COPD, HTN, CKD, CAD, NSTEMI, RA, recurrent C. diff. Pt presented to [facility] on 10/09/20 with c/o fever, abdominal pain, diarrhea and vomiting. Lab work on arrival: creatinine 1.39, WBC 15.01, lactate 3.7, C. difficile toxin positive, influenza and covid negative. UA not suggestive of infection and negative for blood, no urine culture obtained. CT A/P with pancolitis, also incidental finding of 14 mm heterogeneously enhancing focus within the right kidney. She was admitted with sepsis likely secondary to C. diff and sepsis protocol initiated. Was started on IVF, IV Flagyl and Cefepime, and oral vancomycin 500 mg QID. She is currently on treatment with IV Flagyl and PO Vancomycin. Our service is consulted for evaluation of right renal heterogenous focus. CT A/P with IV contrast: IMPRESSION: 1. Motion compromised study 2. No evidence of bowel obstruction. No evidence of free air 3. Normal appendix 4. Diffuse colonic wall thickening indicative of a pancolitis 5. 14 mm heterogeneously enhancing focus within the right kidney. Diagnostic considerations include renal neoplasm, infarct, or focal pyelonephritis. Clinical correlation and follow-up imaging is recommended. Chart review: Afebrile UA (10/09) - 20-30 epithelials; negative for blood, nitrates, and bacteria. BCx - no growth x 24 hours Creatinine - 1.08 WBC - 5.41 Hgb - 9.9 On IV Flagyl, oral vancomycin VS - BP 126/66, HR 61, Resp 18, Temp 36.6, O2 98% on RA Pt seen and examined at beside. Awake, alert and sitting up in bed. She reports she is feeling much better since admission. She is tolerating full liquid diet. No abdominal pain, nausea or vomiting. Diarrhea ongoing. Voiding without difficulty. Reports some incontinence at baseline. No dysuria or hematuria. No flank or suprapubic pain. No fever or chills. Offers no complaints at this time. No prior urology evaluations. No personal or family history of stones. Denies family history of kidney, bladder, or prostate cancer. Never smoker. No additional concerns today. Allergies Allergy/AdvReac Type Severity Reaction Status Date / Time methotrexate Allergy Intermediate RASH/PNEUMO Verified 10/09/20 04:22 NITIS Penicillins Allergy Intermediate hives Verified 10/09/20 04:22 ranitidine Allergy Intermediate rash Verified 10/09/20 04:22 Insecticides Allergy Severe DIFFICULTY Uncoded 10/09/20 04:22 BREATHING; FULL BODY SWELLING Home Medications Medication Instructions Recorded Confirmed Type duloxetine 60 mg PO DAILY 07/20/18 10/09/20 History folic acid 1 mg PO QAM 07/20/18 10/09/20 History hydroxychloroquine 200 mg PO HS 07/20/18 10/09/20 History lisinopril 2.5 mg PO QAM 07/20/18 10/09/20 History metoprolol tartrate 25 mg PO BID 07/20/18 10/09/20 History montelukast 10 mg PO HS 07/20/18 10/09/20 History pantoprazole 40 mg PO QAM 07/20/18 10/09/20 History prednisone 5 mg PO QAM 07/20/18 10/09/20 History thiamine mononitrate (vit B1) 50 mg PO QAM 07/20/18 10/09/20 History Ocuvite with Lutein 1 tab PO QAM 03/07/19 10/09/20 History albuterol sulfate [ProAir HFA] 2 puff INHALATION Q4 PRN 03/07/19 10/09/20 Hist ory cholecalciferol (vitamin D3) 2,000 unit PO QAM 03/07/19 10/09/20 History [Vitamin D3] clindamycin HCl 600 mg PO UD PRN 03/07/19 10/09/20 History cyanocobalamin (vitamin B-12) 2,000 mcg PO 3XWK 03/07/19 10/09/20 History [Vitamin B-12] latanoprost [Xalatan] 1 drp OPHTHALMIC (EYE) HS 03/07/19 10/09/20 History leflunomide [Arava] 10 mg PO QAM 03/07/19 10/09/20 History levalbuterol HCl [Xopenex] 1.25 mg INHALATION Q4 PRN 03/07/19 10/09/20 History nitroglycerin 0.4 mg SUBLINGUAL UD 03/07/19 10/09/20 History nystatin 1 applic TOPICAL TID PRN 03/07/19 10/09/20 History tramadol 50 mg PO BID PRN 03/07/19 10/09/20 History Centrum Silver Women 1 tab PO DAILY 11/12/19 10/09/20 History fluticasone furoate-vilanterol 1 inh INHALATION DAILY 11/12/19 10/09/20 History rosuvastatin 10 mg PO DAILY 11/12/19 10/09/20 History vancomycin 125 mg PO DIRECTED 11/12/19 10/09/20 History aspirin [Aspirin Low Dose] 81 mg PO HS 10/09/20 10/09/20 History gabapentin 300 mg PO TID 10/09/20 10/09/20 History risedronate 35 mg PO WK 10/09/20 10/09/20 History Patient History Medical History (Updated 10/10/20 @ 13:24 by JOSIANE Guevara) Asthma inhalers prn Chronic steroid use prednisone daily CKD (chronic kidney disease), stage III COPD (chronic obstructive pulmonary disease) inhalers prn Depression DJD of right shoulder DM type 2 (diabetes mellitus, type 2) Dyslipidemia Gastroparesis GERD (gastroesophageal reflux disease) Glaucoma Gout H/O interstitial lung disease "drug induced- methotrexate " Heart disease HTN (hypertension) Migraines NSTEMI (non-ST elevated myocardial infarction) (08/06/13) Osteoarthritis Peripheral neuropathy Rheumatoid arthritis "on chronic steroids" Surgical History (Updated 11/13/19 @ 21:04 by Chucho Han MD) H/O cardiac catheterization "cath 07/2013- single vessel CAD involving apical segment LAD, medical management indicated" H/O colonoscopy History of esophagogastroduodenoscopy (EGD) History of hysterectomy History of tooth extraction all top teeth S/P removal of ovarian cyst S/P rotator cuff repair "right shoulder" S/P total knee arthroplasty "left knee" Family History Father Family history of diabetes mellitus Other No family history of adverse response to anesthesia Social History Smoking Status: Never smoker Second Hand Exposure: No; Do You Dip or Chew Tobacco: No; Tobacco Cessation Education Requested by Patient: No Hx Alcohol Use: No Hx Substance Use: No Preferred Language: Greenlandic Communication Ability: Effective 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 Required: No Beliefs That Will Affect Care: None marital status: Current Living Situation: Spouse Other Information That Helps Us Care for You: No Feels Safe at Home: Yes Safety Concerns: Feels Safe At This Time Assistive Devices: None Review of Systems Constitutional: as per Subjective / HPI Gastrointestinal: as per Subjective / HPI Genitourinary: as per Subjective / HPI Physical Exam Constitutional: well developed and well nourished; no acute distress and not ill appearing Eyes: no scleral abnormality Respiratory: normal respiratory effort and able to speak in complete sentences; no respiratory distress and no labored breathing Cardiovascular: Extremities: no calf tenderness and no pedal edema Gastrointestinal (Abdomen): Inspection/Auscultation: abdomen normal to inspection; abdomen not distended Percussion/Palpation: abdomen soft; abdomen nontender and no guarding Musculoskeletal: Head/Neck/Chest: normocephalic and head atraumatic Skin: no rashes, warm and dry Neurologic: moves all extremities and awake Psychiatric: A+Ox3, euthymic affect Genitourinary: no CVA tenderness Results & Data ([facility]) Vital Signs (Past 12 Hours) Vital Signs Temp Pulse Resp BP Pulse Ox 10/10/20 08:07 36.6 C 61 18 126/66 98 PG Care Time/CCT Total # of Minutes Spent Total Time Spent with Patient: Total time spent is greater than 50% in coordination of care (as documented) at patient's floor/unit and/or counseling patient: Coding Level of Care Code 00518 Inpt Consult Level 3 Diagnoses Renal cyst, right N28.1
--- NOTE | 2020-10-10 18:05 | Hospitalist Progress Note ---
Date of Service October 10, 2020 Assessment & Plan (1) Recurrent Clostridium difficile diarrhea: ASSESSMENT AND PLAN: This is a 75-year-old female who presents with fever, abdominal pain and diarrhea. 1. Sepsis, secondary to C diff Colitis improving continue Vancomycin PO, will need prolonged taper d/c Cefepime GI consulted, appreciate the recommendations advance diet to Full Liquids 2. Possible Renal Mass UA: no UTI Urologist consulted, outpatient work up 3. History of rheumatoid arthritis, on leflunomide and Plaquenil and also prednisone 5 mg p.o. daily. on IV Solu-Medrol 20 mg b.i.d. for stress dose. 4. Diabetes, not on medication, a1c 5.6 blood sugars. ISS 5. History of chronic obstructive pulmonary disease, history of interstitial lung disease and asthma. - stable 6. Hyperlipidemia. Continue statin. 7. Gastroesophageal reflux disease. Continue Protonix. 8. Vitamin deficiency, continue thiamine and B12 supplements. 9. Depression. Continue Cymbalta. 10. Hypertension. Continue lisinopril with holding parameters. 11. Recent shingles that are healing up, started on gabapentin. We will continue for now. 12. Acute kidney injury on chronic kidney disease stage III. Baseline creatinine around 1-1.3, presents with creatinine of 1.39 - resolved with IV fluids 13. Deep venous thrombosis prophylaxis, sequential compression devices for now. 14. Disposition: pending PT OT evaluation lives with at home Admission and Anticipated Discharge Date Admission Date: October 09, 2020 Subjective ff up for recurrent C diff, etc seen resting in bed, comfortable in good spirits states diarrhea is improving, no abdominal pain no fever/chills denies flank pain, back pain, urinary symptoms no other symptoms Review of Systems Review of Systems: All systems reviewed & are unremarkable except as noted in Subjective Physical Exam Physical Exam: General- oriented x 2, not in distress, speaks in sentences with no effort or accessory muscle use Head- atraumatic Eyes- PERRL, EOMI, anicteric ENT- oropharynx clear Neck- supple, no JVD, no adenopathy, no thyromegaly; carotids +2/2, no bruits appreciated Lungs- clear to auscultation bilaterally, no rales/wheezes Heart- normal rate, regular rhythm; no murmur, no gallop, no rub appreciated Abdomen- normal bowel sounds, nondistended, soft, nontender, no masses or hepatosplenomegaly Extremities- no pretibial edema, no calf tenderness; peripheral pulses intact Neuro- alert, oriented x 3; CN 2-12 grossly intact; motor 5/5 bilaterally;sensation 100% on all extremities; no other gross focal neurologic deficits Skin- warm & dry Results & Data Results & Data ([facility]) Vital Signs (Past 12 Hours) Vital Signs Temp Pulse Resp BP Pulse Ox 10/10/20 15:30 36.6 C 62 18 146/64 H 99 10/10/20 08:07 36.6 C 61 18 126/66 98 Laboratory Results Laboratory Results - last 24 hr 10/09/20 10/10/20 10/10/20 20:26 05:22 05:22 WBC 5.41 RBC 3.43 L Hgb 9.9 L D Hct 30.1 L MCV 87.8 MCH 28.9 MCHC 32.9 RDW Std Deviation 55.6 H RDW Coeff of Xochitl 17.0 H Plt Count 143 MPV 9.7 Immature Gran % (Auto) 0.0 Neut % (Auto) 72.6 Lymph % (Auto) 16.1 [place] % (Auto) 11.1 Eos % (Auto) 0.2 Baso % (Auto) 0.0 Neut # (Auto) 3.93 Lymph # (Auto) 0.87 L [place] # (Auto) 0.60 H Eos # (Auto) 0.01 Baso # (Auto) 0.00 Immature Gran # (Auto) 0.00 Sodium 141 Potassium 3.5 D Chloride 113 H Carbon Dioxide 22 Anion Gap 6.0 BUN 17 Creatinine 1.08 Est Cr Clr Drug Dosing 37.1 Est GFR ( Amer) 59.0 Est GFR (Non-Af Amer) 50.9 BUN/Creatinine Ratio 15.6 Glucose 94 POC Glucose 147 H Estimat Average Glucose Hemoglobin A1c Calcium 7.5 L D Magnesium 1.7 L Total Bilirubin 0.3 Direct Bilirubin 0.1 AST 35 ALT 39 Alkaline Phosphatase 116 Total Protein 5.1 L D Albumin 1.9 L 10/10/20 10/10/20 10/10/20 05:22 08:34 12:06 WBC RBC Hgb Hct MCV MCH MCHC RDW Std Deviation RDW Coeff of Xochitl Plt Count MPV Immature Gran % (Auto) Neut % (Auto) Lymph % (Auto) [place] % (Auto) Eos % (Auto) Baso % (Auto) Neut # (Auto) Lymph # (Auto) [place] # (Auto) Eos # (Auto) Baso # (Auto) Immature Gran # (Auto) Sodium Potassium Chloride Carbon Dioxide Anion Gap BUN Creatinine Est Cr Clr Drug Dosing Est GFR ( Amer) Est GFR (Non-Af Amer) BUN/Creatinine Ratio Glucose POC Glucose 79 140 H Estimat Average Glucose 114 Hemoglobin A1c 5.6 Calcium Magnesium Total Bilirubin Direct Bilirubin AST ALT Alkaline Phosphatase Total Protein Albumin 10/10/20 17:02 WBC RBC Hgb Hct MCV MCH MCHC RDW Std Deviation RDW Coeff of Xochitl Plt Count MPV Immature Gran % (Auto) Neut % (Auto) Lymph % (Auto) [place] % (Auto) Eos % (Auto) Baso % (Auto) Neut # (Auto) Lymph # (Auto) [place] # (Auto) Eos # (Auto) Baso # (Auto) Immature Gran # (Auto) Sodium Potassium Chloride Carbon Dioxide Anion Gap BUN Creatinine Est Cr Clr Drug Dosing Est GFR ( Amer) Est GFR (Non-Af Amer) BUN/Creatinine Ratio Glucose POC Glucose 103 H Estimat Average Glucose Hemoglobin A1c Calcium Magnesium Total Bilirubin Direct Bilirubin AST ALT Alkaline Phosphatase Total Protein Albumin
[2020-10-10] MEDS: ASPIRIN 81 MG ECTAB PO SCH (21:10)
[2020-10-10] MEDS: MONTELUKAST SODIUM 10 MG TABLET PO SCH (21:10)
[2020-10-10] MEDS: LATANOPROST 0.005% OP SOLN 2.5 ML BTL OP SCH (21:11)
[2020-10-11] MEDS: RASPBERRY SYRUP 5 ML UDP PO SCH ×4 (05:41→23:33)
[2020-10-11] MEDS: VANCOMYCIN HCL 500 MG/10 ML SOLN PO SCH ×4 (05:41→23:33)
[2020-10-11 07:18] LABS: Creatinine Clr Calc Pharmacy 43.6 ml/min; Est GFR (African American) 71.6; Est GFR (Non-African American) 61.8
[2020-10-11] MEDS: metroNIDAZOLE 500 MG/100 ML BAG IV SCH ×2 (07:51→15:30)
[2020-10-11] MEDS: CHOLECALCIFEROL 1,000 UNITS 25 MCG TAB PO SCH (07:55)
[2020-10-11] MEDS: CEROVITE ADV FORMULA TAB PO SCH (07:55)
[2020-10-11] MEDS: DULoxetine HCL 60 MG CAP PO SCH (07:55)
[2020-10-11] MEDS: THIAMINE HCL 50 MG TABLET PO SCH (07:55)
[2020-10-11] MEDS: FOLIC ACID 1 MG TAB PO SCH (07:55)
[2020-10-11] MEDS: METOPROLOL TARTRATE 25 MG TAB PO SCH ×2 (07:55→20:09)
[2020-10-11] MEDS: FLUTICASONE/VILANTEROL 100/25MCG 14 PUFFS/INHALER INH SCH (07:56)
[2020-10-11] MEDS: GABAPENTIN 300 MG CAP PO SCH ×3 (07:56→20:09)
[2020-10-11] MEDS: LEFLUNOMIDE 10 MG TAB PO SCH (07:56)
[2020-10-11] MEDS: ROSUVASTATIN CALCIUM 10 MG TAB PO SCH (07:56)
[2020-10-11] MEDS: INSULIN ASPART 100 UNITS/ML 3 ML PEN SC SCH ×4 (09:18→20:47)
[2020-10-11] MEDS: SODIUM CHLORIDE 0.9% 1000ML 1,000 ML IV SCH (09:19)
--- NOTE | 2020-10-11 15:14 | CT Scan Report ---
CT facial bones wo con CT DOSE: 561.02 mGy.cm CLINICAL HISTORY: left cheek swelling, possible dental infection COMPARISON STUDY: No previous studies for comparison. TECHNIQUE: Helical images were acquired in the transverse plane. The study was reviewed and analyzed on the independent 3-D workstation. A dose lowering technique was utilized adhering to the principle s of ALARA. The pterygoid plates appear intact. The zygomatic arches appear intact. The globes appear intact. There is no evidence of orbital emphysema. The orbital zacarias and floor appear intact. The mandibular condyles appear intact. There is hyperostosis frontalis interna. There is minimal mucosal thickening within the right maxillary sinus. No parotid gland masses are visualized in this noncontrast study. There is a 4 mm exophytic skin nodule in the right frontal region. There are no fluid collections to indicate an abscess. There are multiple dental caries. IMPRESSION: 1. No facial fractures identified 2. Poor dentition with multiple dental caries 3. No evidence of soft tissue abscess. ACT 112: Negative or not required by law. Electronically signed by: Drew De La Cruz M.D. 10/11/2020 3:13 PM
[2020-10-11] MEDS ORDERED: CLINDAMYCIN HCL 150 MG CAP PO SCH (16:10)
--- NOTE | 2020-10-11 16:16 | Hospitalist Progress Note ---
Date of Service October 11, 2020 Assessment & Plan (1) Recurrent Clostridium difficile diarrhea: ASSESSMENT AND PLAN: This is a 75-year-old female who presents with fever, abdominal pain and diarrhea. 1. Sepsis, secondary to C diff Colitis continues to improve continue Vancomycin PO, will need prolonged taper GI consulted, appreciate the recommendations advance diet to soft diet d/c IV fluids Possible Odontogenic Infection - CT facial bone: no abscess - start Cefuroxime 500mg BID x 10 days will need to have Dental Appt as outpatient 2. Possible Renal Mass UA: no UTI Urologist consulted, outpatient work up 3. History of rheumatoid arthritis, on leflunomide and Plaquenil and also prednisone 5 mg p.o. daily. on IV Solu-Medrol 20 mg b.i.d. for stress dose. --> transition to Prednisone 5mg po daily 4. Diabetes, not on medication, a1c 5.6 blood sugars. ISS 5. History of chronic obstructive pulmonary disease, history of interstitial lung disease and asthma. - stable 6. Hyperlipidemia. Continue statin. 7. Gastroesophageal reflux disease. Continue Protonix. 8. Vitamin deficiency, continue thiamine and B12 supplements. 9. Depression. Continue Cymbalta. 10. Hypertension. Continue lisinopril with holding parameters. 11. Recent shingles that are healing up, started on gabapentin. We will continue for now. 12. Acute kidney injury on chronic kidney disease stage III. Baseline creatinine around 1-1.3, presents with creatinine of 1.39 - resolved with IV fluids 13. Deep venous thrombosis prophylaxis, sequential compression devices for now. 14. Disposition: pending PT OT evaluation lives with at home Admission and Anticipated Discharge Date Admission Date: October 09, 2020 Subjective ff up for C diff diarrhea, etc seen resting in bed, comfortable in good spirits states she feels that she is improving no abdominal pain small formed BMs today reports left cheek swelling with pain on the left mandibular teeth with eating no fever/chills, trismus, dysphagia no other symptoms Review of Systems Review of Systems: All systems reviewed & are unremarkable except as noted in Subjective Physical Exam Physical Exam: General- oriented x 3, not in distress, speaks in sentences with no effort or accessory muscle use EENT- mild left cheek edema and tenderness, no warmth, erythema (+) poor dentition, no swelling noted in the oral mucosa Eyes- anicteric Neck- no JVD Lungs- clear breath sounds bilaterally, no rales/wheezes Heart- normal rate, regular rhythm; no murmurs Abdomen- normal bowel sounds, nondistended, soft, nontender Extremities- no pretibial edema, no calf tenderness Neuro- alert, oriented x 3; no gross focal neurologic deficits Skin- warm & dry Results & Data Results & Data ([facility]) Vital Signs (Past 12 Hours) Vital Signs Temp Pulse Pulse Resp BP Pulse Ox 10/11/20 15:47 36.9 C 69 16 178/80 H 93 10/11/20 07:05 36.7 C 65 16 167/72 H 95 Laboratory Results Laboratory Results - last 24 hr 10/10/20 10/10/20 10/11/20 17:02 20:41 06:21 Creatinine 0.92 Est Cr Clr Drug Dosing 43.6 Est GFR ( Amer) 71.6 Est GFR (Non-Af Amer) 61.8 POC Glucose 103 H 95 10/11/20 10/11/20 10/11/20 08:10 08:14 12:10 Creatinine Est Cr Clr Drug Dosing Est GFR ( Amer) Est GFR (Non-Af Amer) POC Glucose 69 L* 80 82
[2020-10-11] MEDS ORDERED: lisinopril 2.5 MG TAB PO ONE (16:45)
[2020-10-11] MEDS: predniSONE 5 MG TAB PO SCH (17:45)
[2020-10-11] MEDS: cefUROXime axetil 500 MG TAB PO SCH ×2 (17:45→21:37)
[2020-10-11] MEDS: LATANOPROST 0.005% OP SOLN 2.5 ML BTL OP SCH (20:09)
[2020-10-11] MEDS: ASPIRIN 81 MG ECTAB PO SCH (20:09)
[2020-10-11] MEDS: MONTELUKAST SODIUM 10 MG TABLET PO SCH (20:09)
[2020-10-12] MEDS: metroNIDAZOLE 500 MG/100 ML BAG IV SCH ×3 (00:28→16:08)
[2020-10-12] MEDS: lisinopril 5 MG TAB PO SCH (01:37)
[2020-10-12] MEDS: RASPBERRY SYRUP 5 ML UDP PO SCH ×4 (05:56→23:47)
[2020-10-12] MEDS: VANCOMYCIN HCL 500 MG/10 ML SOLN PO SCH ×4 (05:57→23:47)
[2020-10-12 08:17] LABS: Creatinine Clr Calc Pharmacy 45.5 ml/min; Est GFR (African American) 75.5; Est GFR (Non-African American) 65.2
[2020-10-12] MEDS: GABAPENTIN 300 MG CAP PO SCH ×3 (09:18→20:29)
[2020-10-12] MEDS: FLUTICASONE/VILANTEROL 100/25MCG 14 PUFFS/INHALER INH SCH (09:18)
[2020-10-12] MEDS: ROSUVASTATIN CALCIUM 10 MG TAB PO SCH (09:19)
[2020-10-12] MEDS: THIAMINE HCL 50 MG TABLET PO SCH (09:19)
[2020-10-12] MEDS: CHOLECALCIFEROL 1,000 UNITS 25 MCG TAB PO SCH (09:19)
[2020-10-12] MEDS: METOPROLOL TARTRATE 25 MG TAB PO SCH ×2 (09:19→20:29)
[2020-10-12] MEDS: cefUROXime axetil 500 MG TAB PO SCH ×2 (09:20→20:29)
[2020-10-12] MEDS: predniSONE 5 MG TAB PO SCH (09:21)
[2020-10-12] MEDS: DULoxetine HCL 60 MG CAP PO SCH (09:21)
[2020-10-12] MEDS: CEROVITE ADV FORMULA TAB PO SCH (09:22)
[2020-10-12] MEDS: LEFLUNOMIDE 10 MG TAB PO SCH (09:22)
[2020-10-12] MEDS: CYANOCOBALAMIN 500 MCG TABLET (VITAMIN B-12) PO SCH (09:22)
[2020-10-12] MEDS: FOLIC ACID 1 MG TAB PO SCH (09:22)
[2020-10-12] MEDS: INSULIN ASPART 100 UNITS/ML 3 ML PEN SC SCH ×4 (09:25→21:31)
[2020-10-12 09:59] LABS: Basophils # (auto) 0.01 K/uL (0-0.2); Basophils % (auto) 0.3 %; Eosinophils # (auto) 0.01 K/uL (0-0.5); Eosinophils % (auto) 0.3 %; Hematocrit (blood only) 28.9 % (37-47); Hemoglobin 9.8 g/dL (12.0-16.0); Immature Granulocytes # (auto) 0.01 K/uL (0.00-0.02); Immature Granulocytes % (auto) 0.3 %; Lymphocytes # (auto) 1.06 K/uL (1.2-3.4); Lymphocytes % (auto) 30.3 %; Mean Corpuscular Hemoglobin 28.8 pg (25-34); Mean Corpuscular Hgb Conc 33.9 g/dL (32-36); Mean Platelet Volume 9.6 fL (7.4-10.4); Monocytes # (auto) 0.33 K/uL (0.11-0.59); Monocytes % (auto) 9.4 %; Neutrophils # (auto) 2.08 K/uL (1.4-6.5); Neutrophils % (auto) 59.4 %; Platelet Count 186 K/uL (130-400); RDW Coefficient of Variation 16.6 % (11.5-14.5); RDW Standard Deviation 52.1 fL (36.4-46.3)
[2020-10-12] MEDS: MENTHOL-ZINC OXIDE 360 APPLN/120 GM TUBE EXT SCH ×2 (16:08→20:30)
--- NOTE | 2020-10-12 18:46 | Hospitalist Progress Note ---
Date of Service October 12, 2020 Assessment & Plan (1) Recurrent Clostridium difficile diarrhea: ASSESSMENT AND PLAN: This is a 75-year-old female who presents with fever, abdominal pain and diarrhea. 1. Sepsis, secondary to C diff Colitis continues to improve continue Vancomycin PO, will need prolonged taper GI consulted, appreciate the recommendations advance diet to soft diet --No diarrhea today Possible Odontogenic Infection - CT facial bone: no abscess -Left cheek swelling, mandibular pain improving -Day 2 cefuroxime 500mg BID x 10 days will need to have Dental Appt as outpatient 2. Possible Renal Mass UA: no UTI Urologist consulted, outpatient work up 3. History of rheumatoid arthritis, on leflunomide and Plaquenil and also prednisone 5 mg p.o. daily. on IV Solu-Medrol 20 mg b.i.d. for stress dose. --> transition to Prednisone 5mg po daily 4. Diabetes, not on medication, a1c 5.6 blood sugars. ISS 5. History of chronic obstructive pulmonary disease, history of interstitial lung disease and asthma. - stable 6. Hyperlipidemia. Continue statin. 7. Gastroesophageal reflux disease. Continue Protonix. 8. Vitamin deficiency, continue thiamine and B12 supplements. 9. Depression. Continue Cymbalta. 10. Hypertension. Blood pressure elevated, asymptomatic Add as needed hydralazine IV for systolic BP more than 160 Continue lisinopril with holding parameters. 11. Recent shingles that are healing up, started on gabapentin. -Start calmoseptine 12. Acute kidney injury on chronic kidney disease stage III. Baseline creatinine around 1-1.3, presents with creatinine of 1.39 - resolved with IV fluids 13. Deep venous thrombosis prophylaxis, sequential compression devices for now. Encouraged to ambulate 14. Disposition: Anticipate discharge to home tomorrow lives with at home Admission and Anticipated Discharge Date Admission Date: October 09, 2020 Subjective Follow-up for recurrent C. difficile, etc. Seen sitting up in bed, comfortable, not in distress, very pleasant States that she continues to feel improved No diarrhea today, 1 soft bowel movement No abdominal pain, nausea vomiting, fevers or chills Reports left mandibular pain, and left cheek swelling are improving No other symptoms Review of Systems Review of Systems: All systems reviewed & are unremarkable except as noted in Subjective Physical Exam Physical Exam: General- oriented x 3, not in distress, speaks in sentences with no effort or accessory muscle use ENT-left cheek swelling resolving, no tenderness/warmth/erythema No edema, erythema on the oral mucosa, gingival area Eyes- anicteric Neck- no JVD Lungs- clear breath sounds bilaterally Heart- normal rate, regular rhythm; no murmurs Abdomen- normal bowel sounds, nondistended, soft, nontender Extremities- no pretibial edema, no calf tenderness Neuro- alert, oriented x 3; no gross focal neurologic deficits Skin- warm & dry Results & Data Results & Data ([facility]) Vital Signs (Past 12 Hours) Vital Signs Temp Pulse Pulse Resp BP Pulse Ox 10/12/20 17:05 157/62 H 10/12/20 16:08 175/79 H 10/12/20 15:30 70 16 201/84 H 95 10/12/20 07:28 36.9 C 69 16 177/71 H 97 Laboratory Results Laboratory Results - last 24 hr 10/11/20 10/12/20 10/12/20 20:43 07:10 07:13 WBC 3.50 L RBC 3.40 L Hgb 9.8 L Hct 28.9 L MCV 85.0 MCH 28.8 MCHC 33.9 RDW Std Deviation 52.1 H RDW Coeff of Xochitl 16.6 H Plt Count 186 MPV 9.6 Immature Gran % (Auto) 0.3 Neut % (Auto) 59.4 Lymph % (Auto) 30.3 [place] % (Auto) 9.4 Eos % (Auto) 0.3 Baso % (Auto) 0.3 Neut # (Auto) 2.08 Lymph # (Auto) 1.06 L [place] # (Auto) 0.33 Eos # (Auto) 0.01 Baso # (Auto) 0.01 Immature Gran # (Auto) 0.01 Creatinine 0.88 Est Cr Clr Drug Dosing 45.5 Est GFR ( Amer) 75.5 Est GFR (Non-Af Amer) 65.2 POC Glucose 92 10/12/20 10/12/20 10/12/20 08:10 11:57 17:32 WBC RBC Hgb Hct MCV MCH MCHC RDW Std Deviation RDW Coeff of Xochitl Plt Count MPV Immature Gran % (Auto) Neut % (Auto) Lymph % (Auto) [place] % (Auto) Eos % (Auto) Baso % (Auto) Neut # (Auto) Lymph # (Auto) [place] # (Auto) Eos # (Auto) Baso # (Auto) Immature Gran # (Auto) Creatinine Est Cr Clr Drug Dosing Est GFR ( Amer) Est GFR (Non-Af Amer) POC Glucose 90 94 125 H
[2020-10-12] MEDS: MONTELUKAST SODIUM 10 MG TABLET PO SCH (20:29)
[2020-10-12] MEDS: ASPIRIN 81 MG ECTAB PO SCH (20:29)
[2020-10-12] MEDS: LATANOPROST 0.005% OP SOLN 2.5 ML BTL OP SCH (20:30)
[2020-10-12] MEDS: hydrALAZINE HCL 20 MG/ML VIAL IV PRN (23:07)
[2020-10-13] MEDS: VANCOMYCIN HCL 500 MG/10 ML SOLN PO SCH ×2 (05:19→11:07)
[2020-10-13] MEDS: RASPBERRY SYRUP 5 ML UDP PO SCH ×2 (05:19→11:07)
[2020-10-13 06:53] LABS: Creatinine Clr Calc Pharmacy 45.5 ml/min; Est GFR (African American) 75.5; Est GFR (Non-African American) 65.2
[2020-10-13] MEDS: metroNIDAZOLE 500 MG/100 ML BAG IV SCH ×2 (08:14)
[2020-10-13] MEDS: GABAPENTIN 300 MG CAP PO SCH ×2 (08:21→13:00)
[2020-10-13] MEDS: cefUROXime axetil 500 MG TAB PO SCH (08:22)
[2020-10-13] MEDS: lisinopril 5 MG TAB PO SCH (08:23)
[2020-10-13] MEDS: LEFLUNOMIDE 10 MG TAB PO SCH (08:23)
[2020-10-13] MEDS: METOPROLOL TARTRATE 25 MG TAB PO SCH (08:24)
[2020-10-13] MEDS: DULoxetine HCL 60 MG CAP PO SCH (08:24)
[2020-10-13] MEDS: predniSONE 5 MG TAB PO SCH (08:24)
[2020-10-13] MEDS: FOLIC ACID 1 MG TAB PO SCH (08:25)
[2020-10-13] MEDS: CEROVITE ADV FORMULA TAB PO SCH (08:25)
[2020-10-13] MEDS: CHOLECALCIFEROL 1,000 UNITS 25 MCG TAB PO SCH (08:25)
[2020-10-13] MEDS: THIAMINE HCL 50 MG TABLET PO SCH (08:26)
[2020-10-13] MEDS: ROSUVASTATIN CALCIUM 10 MG TAB PO SCH (08:26)
[2020-10-13] MEDS: FLUTICASONE/VILANTEROL 100/25MCG 14 PUFFS/INHALER INH SCH (08:27)
[2020-10-13] MEDS: MENTHOL-ZINC OXIDE 360 APPLN/120 GM TUBE EXT SCH (08:28)
[2020-10-13] MEDS: hydrALAZINE HCL 20 MG/ML VIAL IV PRN (08:35)
[2020-10-13] MEDS: INSULIN ASPART 100 UNITS/ML 3 ML PEN SC SCH (09:06)
--- NOTE | 2020-10-13 18:11 | Hospitalist Progress Note ---
Date of Service October 13, 2020 Assessment & Plan (1) Recurrent Clostridium difficile diarrhea: ASSESSMENT AND PLAN: This is a 75-year-old female who presents with fever, abdominal pain and diarrhea. 1. Sepsis, secondary to C diff Colitis continues to improve continue Vancomycin PO, will need prolonged taper GI consulted, appreciate the recommendations advance diet to soft diet -- diarrhea resolved Possible Odontogenic Infection - CT facial bone: no abscess -Left cheek swelling, mandibular pain improving -Day 3 cefuroxime 500mg BID x 10 days will need to have Dental Appt as outpatient 2. Possible Renal Mass UA: no UTI Urologist consulted, outpatient work up 3. History of rheumatoid arthritis, on leflunomide and Plaquenil and also prednisone 5 mg p.o. daily. on IV Solu-Medrol 20 mg b.i.d. for stress dose. --> transition to Prednisone 5mg po daily 4. Diabetes, not on medication, a1c 5.6 blood sugars. ISS 5. History of chronic obstructive pulmonary disease, history of interstitial lung disease and asthma. - stable 6. Hyperlipidemia. Continue statin. 7. Gastroesophageal reflux disease. Continue Protonix. 8. Vitamin deficiency, continue thiamine and B12 supplements. 9. Depression. Continue Cymbalta. 10. Hypertension. Blood pressure elevated, asymptomatic increase Lisinopril to 5mg po dialy 11. Recent shingles that are healing up, started on gabapentin. -Started calmoseptine 12. Acute kidney injury on chronic kidney disease stage III. Baseline creatinine around 1-1.3, presents with creatinine of 1.39 - resolved with IV fluids 13. Deep venous thrombosis prophylaxis, sequential compression devices for now. Encouraged to ambulate 14. Disposition: d/c home ff up with PCP next week Admission and Anticipated Discharge Date Admission Date: October 09, 2020 Subjective ff up for recurrent C diff diarrhea seen resting in bed, comfortable states she feels fine overall no abdominal pain, diarrhea, nausea no tooth/buccal pain no chest pain, dyspnea, palpitations, dizziness no other symptoms states she is ready and would like to be discharged today Review of Systems Review of Systems: All systems reviewed & are unremarkable except as noted in Subjective Physical Exam Physical Exam: General- oriented x 3, not in distress, speaks in sentences with no effort or accessory muscle use ENT- left cheek swelling resolved no LAD Eyes- anicteric Neck- no JVD Lungs- clear breath sounds bilaterally Heart- normal rate, regular rhythm; no murmurs Abdomen- normal bowel sounds, nondistended, soft, nontender Extremities- no pretibial edema, no calf tenderness Neuro- alert, oriented x 3; no gross focal neurologic deficits Skin- warm & dry Results & Data Results & Data ([facility]) Vital Signs (Past 12 Hours) Vital Signs Temp Pulse Pulse Resp BP BP Pulse Ox 10/13/20 14:46 36.8 C 71 70 16 153/89 H 172/74 H 96 10/13/20 08:40 153/89 H 10/13/20 07:28 36.8 C 71 16 179/64 H 96 Laboratory Results Laboratory Results - last 24 hr 10/12/20 10/13/20 10/13/20 20:35 05:49 08:08 Creatinine 0.88 Est Cr Clr Drug Dosing 45.5 Est GFR ( Amer) 75.5 Est GFR (Non-Af Amer) 65.2 POC Glucose 154 H 84
--- NOTE | 2020-10-14 15:24 | Discharge Summary ---
Date of Service October 14, 2020 Admission HPI Per Admitting Provider CHIEF COMPLAINT: Abdominal pain, diarrhea and fever. HISTORY OF PRESENT ILLNESS: This is a 75-year-old female with past medical history significant for recurrent C. 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 The patient has chronic diarrhea and patient had recurrent C. diff in the past, last 2 days she is having several episodes of diarrhea and also abdominal pain, 10/10 severity like a band-like feeling. She had episodes of vomiting today and had a fever of 102. Denies any cough, no chest pain, no shortness of breath, no loss of sense of smell or taste. Has some headaches, always has some double vision. No earaches, no runny nose, no sore throat. Appetite is down last few days. No difficulty swallowing. Does not ambulate much and losing balance and helps her. Normal bladder movements. In the ER, hemodynamics are okay. Her white count is 15. Her lactic acid came as 3.7, repeat is 1.6. Stool for C. diff is positive. SARS-CoV-2 and influenza A and B and RSV are negative. CT of abdomen and pelvis is showing colitis. ALLERGIES: METHOTREXATE, PENICILLIN, RANITIDINE AND INSECTICIDES. Admission Exam Per Admitting Provider GENERAL: The patient is of moderate build, not in acute distress. VITAL SIGNS: Temperature 37.5, pulse 94, respiratory rate 23, blood pressure 143/72, oxygen 95% on room air. HEENT: Pupils equal, round, reactive to light. Oral mucosa moist. NECK: No neck masses. CARDIOVASCULAR: S1, S2, heard, regular rate and rhythm, no murmur, no gallop. RESPIRATORY SYSTEM: Normal AP diameter. No accessory muscle use. No wheezing, no crackles. ABDOMEN: Soft, bowel sounds present. Nontender. No distention, no guarding, no rigidity. CENTRAL NERVOUS SYSTEM: Cranial nerves II through XII grossly intact, nonfocal. EXTREMITIES: No edema, no erythema. SKIN: Has healing shingles on the left side of the chest and front of the back. Principal Diagnosis RECURRENT C DIFF DIARRHEA Discharge Exam General- oriented x 3, not in distress, speaks in sentences with no effort or accessory muscle use ENT- left cheek swelling resolved no LAD Eyes- anicteric Neck- no JVD Lungs- clear breath sounds bilaterally Heart- normal rate, regular rhythm; no murmurs Abdomen- normal bowel sounds, nondistended, soft, nontender Extremities- no pretibial edema, no calf tenderness Neuro- alert, oriented x 3; no gross focal neurologic deficits Skin- warm & dry Discharge Data Allergies Allergy/AdvReac Type Severity Reaction Status Date / Time methotrexate Allergy Intermediate RASH/PNEUMO Verified 10/09/20 04:22 NITIS Penicillins Allergy Intermediate hives Verified 10/09/20 04:22 ranitidine Allergy Intermediate rash Verified 10/09/20 04:22 Insecticides Allergy Severe DIFFICULTY Uncoded 10/09/20 04:22 BREATHING; FULL BODY SWELLING Consultations 10/09/20 04:53 ED Decision to Admit Stat 10/09/20 07:18 Consult Case Management - Discharge Planning Routine 10/09/20 08:00 Consult Gastroenterology Routine 10/10/20 09:31 Consult Urology Routine Ordered Studies 10/09/20 03:43 CT abd pelvis IV con only Urgent COMPARISON STUDY: October 2019 TECHNIQUE: The patient was scanned in a dynamic helical fashion during intravenous administration of 92 cc of Optiray 320 A dose lowering technique was utilized adhering to the principles of ALARA. CT DOSE: 366.15 mGy.cm FINDINGS: Lower chest: There is a trace right pleural effusion. The heart is borderline enlarged. There is no significant pericardial fluid. There is small hiatal hernia Liver: The contrast-enhanced liver is normal in size, contour, and attenuation. There is no intrahepatic biliary ductal dilatation. The hepatic veins and portal veins are patent. Gallbladder: The patient is status post a prior cholecystectomy. There is a gallbladder remnant versus postsurgical fluid collection. Spleen: Normal in size and attenuation. Pancreas: Unremarkable. Adrenal glands: Unremarkable. Kidneys: Addition to bilateral renal cysts, there is a nonspecific heterogeneous focus of enhancement involving the right kidney measuring 14 mm. Bowel: There are no transition zones to indicate bowel obstruction. There is diffuse colonic wall thickening indicative of a pancolitis. There is no pneumatosis. The appendix appears normal. Peritoneum: There is trace free pelvic fluid. There is no free intraperitoneal air. Vasculature: The abdominal aorta is normal in course and caliber. Adenopathy: None. Pelvic viscera: The uterus is surgically absent Skeletal structures: No destructive osseous lesions are seen. IMPRESSION: 1. Motion compromised study 2. No evidence of bowel obstruction. No evidence of free air 3. Normal appendix 4. Diffuse colonic wall thickening indicative of a pancolitis 5. 14 mm heterogeneously enhancing focus within the right kidney. Diagnostic considerations include renal neoplasm, infarct, or focal pyelonephritis. Clinical correlation and follow-up imaging is recommended. 10/11/20 CT facial bones wo con Routine COMPARISON STUDY: No previous studies for comparison. TECHNIQUE: Helical images were acquired in the transverse plane. The study was reviewed and analyzed on the independent 3-D workstation. A dose lowering technique was utilized adhering to the principles of ALARA. The pterygoid plates appear intact. The zygomatic arches appear intact. The globes appear intact. There is no evidence of orbital emphysema. The orbital zacarias and floor appear intact. The mandibular condyles appear intact. There is hyperostosis frontalis interna. There is minimal mucosal thickening within the right maxillary sinus. No parotid gland masses are visualized in this noncontrast study. There is a 4 mm exophytic skin nodule in the right frontal region. There are no fluid collections to indicate an abscess. There are multiple dental caries. IMPRESSION: 1. No facial fractures identified 2. Poor dentition with multiple dental caries 3. No evidence of soft tissue abscess. Hospital Course (1) Recurrent Clostridium difficile diarrhea: ASSESSMENT AND PLAN: This is a 75-year-old female who presents with fever, abdominal pain and diarrhea. Sepsis, secondary to C diff Colitis given Vancomycin PO, Flagyl IV GI consulted diarrhea resolved discharge on prolonged Vancomycin PO taper: per GI: Pt will need prolonged vancomycin taper on discharge, and follow-up with GI as an outpt toward the end of her ABX course. We are arranging outpt f/u. - Vanco taper on discharge as follows: - 125 mg orally 4 times daily for 14 days - Then 125 mg orally twice daily for 7 days - Then 125 mg orally once daily for 7 days, - Then 125 mg orally every other day for 6 weeks Protonix PO discontinued Possible Renal Mass UA: no UTI CT abdomen/pelvis: 14 mm heterogeneously enhancing focus within the right kidney. Diagnostic considerations include renal neoplasm, infarct, or focal pyelonephritis. Clinical correlation and follow-up imaging is recommended. Urologist consulted, recommendations: - No acute intervention necessary at this time, allow recovery from acute illness - No history of hematuria, UA negative for blood during admission - Will arrange outpatient follow-up with our service with repeat imaging in about 3 months Possible Odontogenic Infection, Left mandible patient developed left cheek edema, pain with chewing on the left mandibular area while admitted CT facial bones: poor dentition, multiple dental caries, no signs of abscess given empiric Cefuroxime PO swelling of the cheek, pain with chewing improved continue course of Cefuroxime PO to complete 7 days patient needs to be evaluated by dentist as soon as possible Hypertension - BP elevated - Lisinopril increased -monitor as outpatient Recent shingles healed well started on gabapentin--> tapered to BID--> taper off as outpatient Calmoseptine ordered Acute kidney injury on chronic kidney disease stage III Baseline creatinine around 1-1.3, presents with creatinine of 1.39 - Resolved with IV fluids History of Rheumatoid Arthritis on Leflunomide and Plaquenil given IV Solu-Medrol 20 mg b.i.d. for stress dose. --> transitioned to usual Prednisone 5mg po daily Diabetes Mellitus Type 2 not on medication a1c 5.6 ff up as outpatient History of chronic obstructive pulmonary disease, history of interstitial lung disease and asthma. - stable Hyperlipidemia. Continue statin. Gastroesophageal reflux disease. Continue Protonix. Vitamin deficiency continue thiamine and B12 supplements. Depression Continue Cymbalta. Deep venous thrombosis prophylaxis given sequential compression devices Encouraged to ambulate Disposition discharge to home ff up with PCP in 1 week needs to ff up with Urologist to evaluated renal mass needs urgent Dental Appointment Total Time Total Time Spent Total Time Spent (In Minutes): 55 minutes Discharge Plan Discharge Items Patient Disposition: Home - Self-Care Reason For Visit: FEVER, DIARRHEA Discharge Diagnosis: RECURRENT C DIFF DIARRHEA TOOTH INFECTION, LEFT MANDIBLE HIGH BLOOD PRESSURE Activity: Resume your previous activity Activity Comment: GRADUALLY TOLERATED Non-emergency contact: Primary Care Provider Call non-emergency contact if: you have any medication questions, your symptoms worsen, your pain is not controlled, your pain is worsening, your pain is unusual for you, your pain is concerning for you and you have a fever Follow-up/Referrals: Aakash Reese MD [Primary Care Provider] - 10/19/20 11:50 am Diet: Heart Healthy Addtl Attending Provider Instructions: YOUR NEW MEDICATIONS ARE: Vancomycin-for C. difficile diarrhea, to be taken as follows: - 125 mg orally 4 times daily for 14 days - Then 125 mg orally twice daily for 7 days - Then 125 mg orally once daily for 7 days, - Then 125 mg orally every other day for 6 weeks Cefuroxime-antibiotic for tooth infection Increase lisinopril to 5 mg daily Decrease gabapentin to 300 mg twice a day Calmoseptine cream for healing scars from shingles Follow-up with your primary care physician in 1 week. The [facility] will be calling you soon for the appointment schedule. You will be scheduled for Urology follow-up in about 2-3 months with repeat imaging prior to visit. [facility] is located at [address] [place] [address] in [place], Phone number: [phone] Call your primary care physician or return to the ER immediately if with worsening of symptoms, Including increasing swelling or pain on your cheek/teeth, nominal pain, nausea / vomiting, fevers or chills, diarrhea. Eat Bulgarian yogurt daily. Check your blood pressure regularly. Inform your primary care physician i mmediately if the top number (systolic blood pressure) is always above 130. Pending Studies at Discharge: No Stand-Alone Forms: My [facility], Smoking Cessation Medications and DC Order Prescriptions: New cefuroxime axetil 500 mg Tablet 500 mg PO BID Qty: 10 RF: 0 Calmoseptine 0.44-20.6 % Ointment 1 applic EXT BID Qty: 1 RF: 2 vancomycin 125 mg Capsule 125 mg PO DIRECTED Qty: 120 RF: 0 gabapentin 300 mg capsule 300 mg PO BID Qty: 14 RF: 0 Continued latanoprost [Xalatan] 0.005 % Drops 1 drp OPHTHALMIC (EYE) HS RF: 0 clindamycin HCl 150 mg Capsule 600 mg PO UD PRN (Reason: prior to dental appointments) RF: 0 cyanocobalamin (vitamin B-12) [Vitamin B-12] 1,000 mcg Tablet 2,000 mcg PO 3XWK RF: 0 leflunomide [Arava] 10 mg Tablet 10 mg PO QAM RF: 0 tramadol 50 mg Tablet 50 mg PO BID PRN (Reason: Pain) RF: 0 nitroglycerin 0.4 mg Tablet, Sublingual 0.4 mg sublingual UD RF: 0 nystatin 100,000 unit/gram Powder 1 applic TOPICAL TID PRN (Reason: Rash) RF: 0 levalbuterol HCl [Xopenex] 1.25 mg/3 mL Solution For Nebulization 1.25 mg INHALATION Q4 PRN (Reason: Shortness Of Breath) RF: 0 albuterol sulfate [ProAir HFA] 90 mcg/actuation Hfa Aerosol Inhaler 2 puff INHALATION Q4 PRN (Reason: Shortness Of Breath) RF: 0 Ocuvite with Lutein 1,000 unit-200 mg-60 unit-2 mg Tablet 1 tab PO QAM RF: 0 cholecalciferol (vitamin D3) [Vitamin D3] 2,000 unit Capsule 2,000 unit PO QAM RF: 0 aspirin [Aspirin Low Dose] 81 mg Tablet,Delayed Release (Dr/Ec) 81 mg PO HS RF: 0 risedronate 35 mg tablet 35 mg PO WK RF: 0 prednisone 5 mg tablet 5 mg PO QAM RF: 0 folic acid 1 mg tablet 1 mg PO QAM RF: 0 montelukast 10 mg tablet 10 mg PO HS RF: 0 hydroxychloroquine 200 mg tablet 200 mg PO HS RF: 0 metoprolol tartrate 25 mg tablet 25 mg PO BID RF: 0 duloxetine 30 mg capsule,delayed release(DR/EC) 60 mg PO DAILY RF: 0 thiamine mononitrate (vit B1) 100 mg tablet 50 mg PO QAM RF: 0 fluticasone furoate-vilanterol 100-25 mcg/dose Blister With Device 1 inh INHALATION DAILY RF: 0 Centrum Silver Women 8 mg iron-400 mcg-300 mcg Tablet 1 tab PO DAILY RF: 0 rosuvastatin 10 mg Tablet 10 mg PO DAILY RF: 0 Changed lisinopril 2.5 mg tablet 5 mg PO QAM Qty: 30 RF: 2 Discontinued pantoprazole 40 mg tablet,delayed release (DR/EC) 40 mg PO QAM RF: 0 vancomycin 125 mg Capsule 125 mg PO DIRECTED RF: 0 Discharge Orders: Discharge Order (Routine); Ordered 10/13/20 Ordered By: Deven Johnson Admission Data Admit Date/Time: 10/09/20 05:58 Attending Provider: Deven Johnson Admit Provider: James Gutierrez Primary Care Provider: Aakash Reese Other Providers: James Gutierrez ; Felipe Aguilar ; Kimmy Velasquez ; Damien Boyd Other Interventions: Discharge Summary Assessment (RN) Last Done: 10/13/20 14:46
[2020-10-15] MEDS ORDERED: RISEDRONATE SODIUM 35 MG TAB PO SCH (07:00)
== END 2020-10-13 15:00 | disposition home or self-care (01) | DRG 872 ==
LOC: ED 02:35 → SUATTDRO 05:58 → 2S 05:58 → 3W 13:58

== ENCOUNTER 2021-08-22 10:17 | Inpatient (IN) ==
--- NOTE | 2021-08-22 11:10 | Emergency Department Note ---
Impression & Plan Syncope, Elevated troponin, Abnormal ECG, Acute hyponatremia ED Provider Note NAME: GRACE ELLINGTON AGE: 75 SEX: F : 1945 ARRIVES VIA: Ambulance INFORMANT: Patient ED PROVIDER(S): Owen Mccormick DO CHIEF COMPLAINT: Syncope HPI: Patient is a 75-year-old female with past medical history of COPD, CAD, ANDRESSA, asthma and hypertension as well as hyperlipidemia who presents to the ER for syncopal episode. She got out of her chair and she remembers falling and thi nks she was awake for the whole time. The heard the thud and came in notes that she was completely passed out for several minutes. She denies any headache or change in vision. No chest pain or shortness of breath. No nausea, vomiting, or diarrhea. No dysuria urgency or frequency. No other exacerbating or remitting factors. Denies any pain from the fall. She does admit to a persistent cough and the notes that this is getting worse. She was diagnosed with RSV on the last ER evaluation. ROS: See above HPI for pertinent positives & negatives. A total of 10 systems reviewed and were otherwise negative. PAST MEDICAL HISTORY:See Below PAST SURGICAL HISTORY:See Below FAMILY HISTORY:See Below SOCIAL HISTORY:See Below HOME MEDICATIONS:See Below ALLERGIES:See Below VITALS:See Below PHYSICAL EXAMINATION: GENERAL: alert, well appearing, well nourished, no distress, non-toxic HEAD: normal cephalic, atraumatic EYE EXAM: normal conjunctiva, PERRL and EOM's grossly intact OROPHARYNX: no exudate, no erythema, lips, buccal mucosa, and tongue normal and mucous membranes are moist NECK: supple, no nuchal rigidity, no adenopathy, non-tender CHEST: stable to compression anteriorly and posteriorly LUNGS: clear to auscultation. Normal chest wall mechanics HEART: no murmurs, S1 normal and S2 normal ABDOMEN: abdomen soft, non-tender, normo-active bowel sounds, no masses, no rebound or guarding. PELVIS: stable to compression anteriorly and posteriorly BACK: Back is symmetrical on inspection and there is no deformity, no midline tenderness, no CVA tenderness. UPPER EXTREMITIES: full active and passive range of motion of all joints without tenderness to palpation LOWER EXTREMITIES: full active and passive range of motion of all joints without tenderness to palpation NEURO EXAM: Normal sensorium, cranial nerves II-XII intact, normal speech, no weakness of arms, no weakness of legs. No drift. Finger to nose intact. Gross sensation intact. GCS 15 MEDICAL DECISION MAKING: Patient is a 75-year-old female who presents ER for syncopal episode which was seen by the . IV was established blood work is obtained. She denies any chest pain or shortness of breath. Labs show leukocytosis of 14,000. No significant anemia. BMP with a hyponatremia 127. Creatinine slightly up at 1.57. LFTs bilirubin was unremarkable. Troponin was checked was 0.153. Lipase was normal. Pro-Seng was normal. UA was contaminated. Patient is RSV positive. Chest x-ray was clean. CT head was negative. She is completely neurologically intact. She was given IV fluids and which was given as a verbal order to the nurse. Patient was updated bedside. She never admits any chest pain or shortness of breath. She was discussed with hospitalist for further evaluation. D-dimer was obtained just prior to admission although I favor PE is much less likely as she has no chest pain or shortness of breath but did result positive. Will defer to the hospitalist. Triage Nursing notes reviewed. Limited review of prior medical records performed Vital Signs: reviewed and remarkable for no significant abnormalities Differential diagnosis: Differential diagnosis includes etiologies such as vasovagal event, infection, hypoglycemia, electrolyte abnormalities, cardiac sources, intracerebral event, toxicologic, neurologic, as well as others were entertained. ER treatment provided: See below Diagnostics interpreted by me: ECG: Sinus bradycardia rate of 56 Right bundle branch block T wave inversion in the septal anterior and lateral leads QTC 515 Cardiac Monitoring: An order was placed for continuous cardiac monitoring. The monitor shows a rate of 60 with sinus rhythm. Laboratory studies: As stated above and show below. Imaging studies: CT head was negative Portable AP upright 1 view the chest was unremarkable Consultation(s): Discussed with hospitalist for further evaluation Procedures: none Critical Care: None Past Med/Surg History Medical History Asthma inhalers prn Chronic steroid use prednisone daily CKD (chronic kidney disease), stage III COPD (chronic obstructive pulmonary disease) inhalers prn Depression DJD of right shoulder DM type 2 (diabetes mellitus, type 2) Dyslipidemia Gastroparesis GERD (gastroesophageal reflux disease) Glaucoma Gout H/O interstitial lung disease "drug induced- methotrexate " Heart disease HTN (hypertension) Migraines NSTEMI (non-ST elevated myocardial infarction) (08/06/13) Osteoarthritis Peripheral neuropathy Rheumatoid arthritis "on chronic steroids" Surgical History H/O cardiac catheterization "cath 07/2013- single vessel CAD involving apical segment LAD, medical management indicated" H/O colonoscopy History of esophagogastroduodenoscopy (EGD) History of hysterectomy History of tooth extraction all top teeth S/P removal of ovarian cyst S/P rotator cuff repair "right shoulder" S/P total knee arthroplasty "left knee" Family History Father Family history of diabetes mellitus Mother Heart disease Hypertension Other No family history of adverse response to anesthesia Social History Smoking Status: Never smoker Second Hand Exposure: No; Hx Alcohol Use: No Hx Substance Use: No Preferred Language: Mozambican Communication Ability: Effective 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 Required: Yes Beliefs That Will Affect Care: Catholic Catholic Beliefs: Hoahaoism marital status: Current Living Situation: Spouse Feels Safe at Home: Yes Assistive Devices: None Allergies Allergies Allergy/AdvReac Type Severity Reaction Status Date / Time methotrexate Allergy Intermediate RASH/PNEUMO Verified 08/22/21 16:42 NITIS Penicillins Allergy Intermediate hives Verified 08/22/21 16:42 ranitidine Allergy Intermediate rash Verified 08/22/21 12:10 Home Meds Home Medications Medication Instructions Recorded Confirmed duloxetine 30 mg capsule,delayed 60 mg PO QDL 07/20/18 08/22/21 release folic acid 1 mg tablet 1 mg PO QAM 07/20/18 08/22/21 hydroxychloroquine 200 mg tablet 200 mg PO HS 07/20/18 08/22/21 prednisone 5 mg tablet 5 mg PO QAM 07/20/18 08/22/21 thiamine mononitrate (vit B1) 100 50 mg PO QAM 07/20/18 08/22/21 mg tablet albuterol sulfate 90 mcg/actuation 2 puff INHALATION Q4 PRN 03/07/19 08/22/21 aerosol inhaler (ProAir HFA) cholecalciferol (vitamin D3) 50 2,000 unit PO QDL 03/07/19 08/22/21 mcg (2,000 unit) capsule (Vitamin D3) cyanocobalamin (vitamin B-12) 2,000 mcg PO 3XWK 03/07/19 08/22/21 1,000 mcg tablet (Vitamin B-12) nitroglycerin 0.4 mg sublingual 0.4 mg SUBLINGUAL UD 03/07/19 08/22/21 tablet nystatin 100,000 unit/gram topical 1 applic TOPICAL TID PRN 03/07/19 08/22/21 powder tramadol 50 mg tablet 50 mg PO BID PRN 03/07/19 08/22/21 vit A 1,000 unit-C 200 mg-E 60 1 tab PO QDL 03/07/19 08/22/21 unit-lutein 2 mg and minerals tablet (Ocuvite with Lutein) fluticasone furoate 100 1 inh INHALATION QDL 11/12/19 08/22/21 mcg-vilanterol 25 mcg/dose inhalation powder multivit with 1 tab PO QDL 11/12/19 08/22/21 fursskjf-[id number]-WT-lutein 8 mg iron-400 mcg-300 mcg tablet (Centrum Silver Women) rosuvastatin 10 mg tablet 10 mg PO QAM 11/12/19 08/22/21 aspirin 81 mg tablet,delayed 81 mg PO HS 10/09/20 08/22/21 release (Aspirin Low Dose) risedronate 35 mg tablet 35 mg PO WK 10/09/20 08/22/21 lisinopril 2.5 mg tablet 2.5 mg PO QAM 11/15/20 08/22/21 montelukast 10 mg tablet 10 mg PO HS 11/15/20 08/22/21 pantoprazole 40 mg tablet,delayed 40 mg PO QAM 11/15/20 08/22/21 release latanoprost 0.005 % eye drops 1 drp OPHTHALMIC (EYE) HS 01/03/21 08/22/21 benzonatate 100 mg capsule 100 mg PO TID PRN 08/19/21 08/22/21 acetaminophen 650 mg 1,950 mg PO Q12H PRN 08/22/21 08/22/21 tablet,extended release (Tylenol 8 Hour) metoprolol succinate 50 mg 50 mg PO DAILY 08/22/21 08/22/21 tablet,extended release 24 hr solifenacin 10 mg tablet (Vesicare) 10 mg PO QDL 08/22/21 08/22/21 vancomycin 125 mg capsule 125 mg PO DAILY 08/22/21 08/22/21 Previous Rx's Medication Instructions Recorded menthol 0.44 %-zinc oxide 20.6 % 1 applic EXT BID #1 tube 10/13/20 topical ointment (Calmoseptine) Results & Data (ED) Vital Signs Vital Signs - 24 hr 08/22/21 10:18 08/22/21 12:24 08/22/21 12:35 Temperature 36.7 C Temperature Source Oral Pulse Rate 56 L Pulse Rate [Apical] Pulse Rate [Right Finger] 60 Respiratory Rate 18 22 Respiratory Effort / Characteristics Non-Labored Respiratory Depth Normal Normal Blood Pressure 126/60 Blood Pressure [Right Arm] 144/81 H Blood Pressure Mean 82 Blood Pressure Mean [Right Arm] 102 Blood Pressure Position Lying Blood Pressure Position [Right Arm] Pulse Oximetry 99 100 98 Oxygen Delivery Method Room Air Room Air Room Air Sepsis Recent Fever Within 48 Hours No Sepsis New/Unexplained Change in Mental Status Yes Sepsis Action Taken by Nursing No Action Required 08/22/21 14:48 08/22/21 16:06 Temperature Temperature Source Pulse Rate Pulse Rate [Apical] 62 91 H Pulse Rate [Right Finger] Respiratory Rate 15 24 Respiratory Effort / Characteristics Non-Labored Spontaneous Respiratory Depth Normal Blood Pressure Blood Pressure [Right Arm] 145/107 H 121/83 Blood Pressure Mean Blood Pressure Mean [Right Arm] 119 95 Blood Pressure Position Blood Pressure Position [Right Arm] Lying Pulse Oximetry 99 97 Oxygen Delivery Method Room Air Room Air Sepsis Recent Fever Within 48 Hours Sepsis New/Unexplained Change in Mental Status Sepsis Action Taken by Nursing Laboratory Data Result diagrams: 08/22/21 11:24 08/22/21 11:24 Lab Results 08/22/21 08/22/21 08/22/21 Range/Units 11:24 11:24 11:24 WBC 14.12 H (4.8-10.8) K/uL RBC 3.99 L (4.2-5.4) M/uL Hgb 12.4 (12.0-16.0) g/dL Hct 35.6 L (37-47) % MCV 89.2 (80-100) fL MCH 31.1 (25-34) pg MCHC 34.8 (32-36) g/dL RDW Std Deviation 46.4 H (36.4-46.3) fL RDW Coeff of Xochitl 14.1 (11.5-14.5) % Plt Count 300 (130-400) K/uL MPV 9.4 (7.4-10.4) fL Immature Gran % (Auto) 1.1 % Neut % (Auto) 81.6 % Lymph % (Auto) 12.0 % [place] % (Auto) 5.2 % Eos % (Auto) 0.0 % Baso % (Auto) 0.1 % Neut # (Auto) 11.52 H (1.4-6.5) K/uL Lymph # (Auto) 1.69 (1.2-3.4) K/uL [place] # (Auto) 0.73 H (0.11-0.59) K/uL Eos # (Auto) 0.00 (0-0.5) K/uL Baso # (Auto) 0.02 (0-0.2) K/uL Immature Gran # (Auto) 0.16 H (0.00-0.02) K/uL D-Dimer (0-500) ug/L FEU Sodium 127 L (136-145) mmol/L Potassium 4.6 (3.5-5.1) mmol/L Chloride 95 L (98-107) mmol/L Carbon Dioxide 22 (21-32) mmol/L Anion Gap 10.0 (3-11) BUN 28 H (7-18) mg/dl Creatinine 1.57 H (0.6-1.2) mg/dl Est Cr Clr Drug Dosing 22.9 ml/min Est GFR ( Amer) 37.5 ml/min Est GFR (Non-Af Amer) 32.4 ml/min BUN/Creatinine Ratio 18.1 (10-20) Glucose 174 H (70-99) mg/dl Osmolality (280-300) mOsm/kg Calcium 9.5 (8.5-10.1) mg/dl Total Bilirubin 0.7 (0.2-1) mg/dl AST 69 H (15-37) U/L ALT 62 (12-78) Alkaline Phosphatase 74 (45-117) U/L Total Creatine Kinase 213 H (26-192) U/L Troponin I 0.153 H* (0-0.045) ng/ml Total Protein 7.1 (6.4-8.2) gm/dl Albumin 3.2 L (3.4-5.0) gm/dl Globulin 3.9 (2.5-4.0) gm/dl Albumin/Globulin Ratio 0.8 L (0.9-2) Lipase 228 (73-393) U/L Procalcitonin (0-0.5) ng/ml Urine Color Urine Appearance (Clear) Urine pH (4.5-7.5) Ur Specific E[place]ar (1.000-1.030) Urine Protein (Negative) Urine Glucose (UA) (Negative) Urine Ketones (Negative) Urine Blood (Negative) Urine Nitrite (Negative) Urine Bilirubin (Negative) Urine Urobilinogen (Negative) Ur Leukocyte Esterase (Negative) Urine WBC (Auto) (0-5) /hpf Urine RBC (Auto) (0-4) /hpf U Hyaline Cast (Auto) (0-5) /lpf U Epithel Cells (Auto) (0-5) /lpf Urine Bacteria (Auto) (Negative) Urine Osmolality (500-800) mOsm/kg Ur Random Sodium mmol/L SARS-CoV-2 (PCR) (Negative) Influenza Type A (PCR) (Neg) Influenza Type B (PCR) (Neg) RSV (RT-PCR) (Neg) 08/22/21 08/22/21 08/22/21 Range/Units 13:00 14:13 14:13 WBC (4.8-10.8) K/uL RBC (4.2-5.4) M/uL Hgb (12.0-16.0) g/dL Hct (37-47) % MCV (80-100) fL MCH (25-34) pg MCHC (32-36) g/dL RDW Std Deviation (36.4-46.3) fL RDW Coeff of Xochitl (11.5-14.5) % Plt Count (130-400) K/uL MPV (7.4-10.4) fL Immature Gran % (Auto) % Neut % (Auto) % Lymph % (Auto) % [place] % (Auto) % Eos % (Auto) % Baso % (Auto) % Neut # (Auto) (1.4-6.5) K/uL Lymph # (Auto) (1.2-3.4) K/uL [place] # (Auto) (0.11-0.59) K/uL Eos # (Auto) (0-0.5) K/uL Baso # (Auto) (0-0.2) K/uL Immature Gran # (Auto) (0.00-0.02) K/uL D-Dimer 1040 H* (0-500) ug/L FEU Sodium (136-145) mmol/L Potassium (3.5-5.1) mmol/L Chloride (98-107) mmol/L Carbon Dioxide (21-32) mmol/L Anion Gap (3-11) BUN (7-18) mg/dl Creatinine (0.6-1.2) mg/dl Est Cr Clr Drug Dosing ml/min Est GFR ( Amer) ml/min Est GFR (Non-Af Amer) ml/min BUN/Creatinine Ratio (10-20) Glucose (70-99) mg/dl Osmolality (280-300) mOsm/kg Calcium (8.5-10.1) mg/dl Total Bilirubin (0.2-1) mg/dl AST (15-37) U/L ALT (12-78) Alkaline Phosphatase (45-117) U/L Total Creatine Kinase (26-192) U/L Troponin I (0-0.045) ng/ml Total Protein (6.4-8.2) gm/dl Albumin (3.4-5.0) gm/dl Globulin (2.5-4.0) gm/dl Albumin/Globulin Ratio (0.9-2) Lipase (73-393) U/L Procalcitonin 0.16 (0-0.5) ng/ml Urine Color Urine Appearance (Clear) Urine pH (4.5-7.5) Ur Specific Egnar (1.000-1.030) Urine Protein (Negative) Urine Glucose (UA) (Negative) Urine Ketones (Negative) Urine Blood (Negative) Urine Nitrite (Negative) Urine Bilirubin (Negative) Urine Urobilinogen (Negative) Ur Leukocyte Esterase (Negative) Urine WBC (Auto) (0-5) /hpf Urine RBC (Auto) (0-4) /hpf U Hyaline Cast (Auto) (0-5) /lpf U Epithel Cells (Auto) (0-5) /lpf Urine Bacteria (Auto) (Negative) Urine Osmolality (500-800) mOsm/kg Ur Random Sodium mmol/L SARS-CoV-2 (PCR) NEGATIVE (Negative) Influenza Type A (PCR) Negative (Neg) Influenza Type B (PCR) Negative (Neg) RSV (RT-PCR) Positive A* (Neg) 08/22/21 08/22/21 08/22/21 Range/Units 14:13 14:50 14:50 WBC (4.8-10.8) K/uL RBC (4.2-5.4) M/uL Hgb (12.0-16.0) g/dL Hct (37-47) % MCV (80-100) fL MCH (25-34) pg MCHC (32-36) g/dL RDW Std Deviation (36.4-46.3) fL RDW Coeff of Xochitl (11.5-14.5) % Plt Count (130-400) K/uL MPV (7.4-10.4) fL Immature Gran % (Auto) % Neut % (Auto) % Lymph % (Auto) % [place] % (Auto) % Eos % (Auto) % Baso % (Auto) % Neut # (Auto) (1.4-6.5) K/uL Lymph # (Auto) (1.2-3.4) K/uL [place] # (Auto) (0.11-0.59) K/uL Eos # (Auto) (0-0.5) K/uL Baso # (Auto) (0-0.2) K/uL Immature Gran # (Auto) (0.00-0.02) K/uL D-Dimer (0-500) ug/L FEU Sodium (136-145) mmol/L Potassium (3.5-5.1) mmol/L Chloride (98-107) mmol/L Carbon Dioxide (21-32) mmol/L Anion Gap (3-11) BUN (7-18) mg/dl Creatinine (0.6-1.2) mg/dl Est Cr Clr Drug Dosing ml/min Est GFR ( Amer) ml/min Est GFR (Non-Af Amer) ml/min BUN/Creatinine Ratio (10-20) Glucose (70-99) mg/dl Osmolality 281 (280-300) mOsm/kg Calcium (8.5-10.1) mg/dl Total Bilirubin (0.2-1) mg/dl AST (15-37) U/L ALT (12-78) Alkaline Phosphatase (45-117) U/L Total Creatine Kinase (26-192) U/L Troponin I (0-0.045) ng/ml Total Protein (6.4-8.2) gm/dl Albumin (3.4-5.0) gm/dl Globulin (2.5-4.0) gm/dl Albumin/Globulin Ratio (0.9-2) Lipase (73-393) U/L Procalcitonin (0-0.5) ng/ml Urine Color Yellow Urine Appearance Cloudy A (Clear) Urine pH 5.0 (4.5-7.5) Ur Specific Egnar 1.016 (1.000-1.030) Urine Protein 1+ H (Negative) Urine Glucose (UA) Negative (Negative) Urine Ketones Negative (Negative) Urine Blood Negative (Negative) Urine Nitrite Negative (Negative) Urine Bilirubin Negative (Negative) Urine Urobilinogen Negative (Negative) Ur Leukocyte Esterase 1+ H (Negative) Urine WBC (Auto) 10-30 H (0-5) /hpf Urine RBC (Auto) 0-4 (0-4) /hpf U Hyaline Cast (Auto) 1-5 (0-5) /lpf U Epithel Cells (Auto) 10-20 H (0-5) /lpf Urine Bacteria (Auto) 4+ H (Negative) Urine Osmolality 376 L (500-800) mOsm/kg Ur Random Sodium mmol/L SARS-CoV-2 (PCR) (Negative) Influenza Type A (PCR) (Neg) Influenza Type B (PCR) (Neg) RSV (RT-PCR) (Neg) 08/22/21 Range/Units 14:50 WBC (4.8-10.8) K/uL RBC (4.2-5.4) M/uL Hgb (12.0-16.0) g/dL Hct (37-47) % MCV (80-100) fL MCH (25-34) pg MCHC (32-36) g/dL RDW Std Deviation (36.4-46.3) fL RDW Coeff of Xocihtl (11.5-14.5) % Plt Count (130-400) K/uL MPV (7.4-10.4) fL Immature Gran % (Auto) % Neut % (Auto) % Lymph % (Auto) % [place] % (Auto) % Eos % (Auto) % Baso % (Auto) % Neut # (Auto) (1.4-6.5) K/uL Lymph # (Auto) (1.2-3.4) K/uL [place] # (Auto) (0.11-0.59) K/uL Eos # (Auto) (0-0.5) K/uL Baso # (Auto) (0-0.2) K/uL Immature Gran # (Auto) (0.00-0.02) K/uL D-Dimer (0-500) ug/L FEU Sodium (136-145) mmol/L Potassium (3.5-5.1) mmol/L Chloride (98-107) mmol/L Carbon Dioxide (21-32) mmol/L Anion Gap (3-11) BUN (7-18) mg/dl Creatinine (0.6-1.2) mg/dl Est Cr Clr Drug Dosing ml/min Est GFR ( Amer) ml/min Est GFR (Non-Af Amer) ml/min BUN/Creatinine Ratio (10-20) Glucose (70-99) mg/dl Osmolality (280-300) mOsm/kg Calcium (8.5-10.1) mg/dl Total Bilirubin (0.2-1) mg/dl AST (15-37) U/L ALT (12-78) Alkaline Phosphatase (45-117) U/L Total Creatine Kinase (26-192) U/L Troponin I (0-0.045) ng/ml Total Protein (6.4-8.2) gm/dl Albumin (3.4-5.0) gm/dl Globulin (2.5-4.0) gm/dl Albumin/Globulin Ratio (0.9-2) Lipase (73-393) U/L Procalcitonin (0-0.5) ng/ml Urine Color Urine Appearance (Clear) Urine pH (4.5-7.5) Ur Specific E[place]ar (1.000-1.030) Urine Protein (Negative) Urine Glucose (UA) (Negative) Urine Ketones (Negative) Urine Blood (Negative) Urine Nitrite (Negative) Urine Bilirubin (Negative) Urine Urobilinogen (Negative) Ur Leukocyte Esterase (Negative) Urine WBC (Auto) (0-5) /hpf Urine RBC (Auto) (0-4) /hpf U Hyaline Cast (Auto) (0-5) /lpf U Epithel Cells (Auto) (0-5) /lpf Urine Bacteria (Auto) (Negative) Urine Osmolality (500-800) mOsm/kg Ur Random Sodium 41 mmol/L SARS-CoV-2 (PCR) (Negative) Influenza Type A (PCR) (Neg) Influenza Type B (PCR) (Neg) RSV (RT-PCR) (Neg) Administered Medications Sodium Chloride (Nss 1000ml) 1,000 mls @ 75 mls/hr IV .[id number] [facility] Stop: 08/23/21 03:19 Last Admin: 08/22/21 14:25 Dose: 75 mls/hr Documented by: [id number] Discontinued Medications Aspirin (Aspirin Chew 324 Mg) Confirm Administered Dose 324 mg .ROUTE .Biodesy-MED ONE Stop: 08/22/21 12:48 Last Admin: 08/22/21 12:50 Dose: 324 mg Documented by: [id number] Imaging Data Radiologist's Impression: Chest X-Ray 08/22/21 11:06 XR chest 1V portable CLINICAL HISTORY: Chest Pain TECHNIQUE: Single frontal radiograph of the chest was obtained. Comparison: Comparison is made to chest one view 12 6 FINDINGS: No lines and tubes are seen. The cardiomediastinal silhouette is normal. The lungs are clear. No evidence of pleural effusion or pneumothorax. IMPRESSION: No acute chest disease. ACT 112: Negative or not required by law. Electronically signed by: Jose Morton M.D. 08/22/2021 11:[address] 08/22/21 11:06 CT head/brain wo con CLINICAL HISTORY: syncope Technique: Contiguous axial CT images of the head were acquired from the base of the skull to the vertex without intravenous contrast administration. Images were viewed in brain, subdural and bone windows. Automated dose lowering techniques and/or adjustment according to patient size were utilized for this exam. Comparison: Comparison is made to CT head 11/11/2019 Findings: Areas of decreased attenuation are present in the periventricular and subcortic al white matter bilaterally consistent with small vessel ischemic disease. Generalized cerebral atrophy with commensurate enlargement of the ventricles, sulci, and cisterns is also present. There is no acute intracranial hemorrhage or evidence of acute territorial infarction. No shift of the midline structures, mass effect, or extra-axial abnormalities are shown. Atherosclerotic calcifications are present in the intracranial segments of the internal carotid arteries. Imaged portions of the paranasal sinuses and mastoid air cells are clear. The orbits appear normal. There are no acute fractures of the calvaria or scalp swelling. Impression: No acute intracranial hemorrhage, no evidence of acute territorial infarction or other acute intracranial disease process. ACT 112: Negative or not required by law. Electronically signed by: Jose Morton M.D. 08/22/2021 11:43 AM Carotid Doppler Study 08/22/21 14:06 BILATERAL CAROTID DOPPLER STUDY HISTORY: syncope COMPARISON: None. TECHNIQUE: Real-time, grayscale, and color Doppler sonography of the carotid arteries was performed. Imaging reviewed in the transverse and longitudinal planes. All measurements were calculated based on NASCET criteria. FINDINGS: Antegrade flow is seen in the bilateral vertebral arteries. The brachial pressures are hemodynamically similar. Moderate calcified plaque within the bilateral carotid bifurcations. This results in suboptimal evaluation of the carotid arteries. The peak systolic velocity within the right ICA is 43 cm/s. The right systolic ratio is 0.9. The peak systolic velocity within the left ICA is 53 cm/s. The left systolic ratio is 1.2. IMPRESSION: Moderate calcified plaque within the bilateral carotid bifurcations without hemodynamically significant stenosis ACT 112: Negative or not required by law. Electronically signed by: Peter Olivarez M.D. 08/22/2021 3:56 PM Discharge Plan Visit Data Chief Complaint: Syncope Stated Complaint: SYNCOPE ED Provider: Owen Mccormick Discharge Problem: Syncope, Elevated troponin, Abnormal ECG, Acute hyponatremia Forms Stand Alone Forms: My [facility] [employer] Prescriptions Prescriptions: No Action latanoprost 0.005 % drops 1 drp ophthalmic (eye) HS RF: 0 cyanocobalamin (vitamin B-12) [Vitamin B-12] 1,000 mcg Tablet 2,000 mcg PO 3XWK RF: 0 tramadol 50 mg Tablet 50 mg PO BID PRN (Reason: Pain) RF: 0 nitroglycerin 0.4 mg Tablet, Sublingual 0.4 mg sublingual UD RF: 0 nystatin 100,000 unit/gram Powder 1 applic TOPICAL TID PRN (Reason: Rash) RF: 0 albuterol sulfate [ProAir HFA] 90 mcg/actuation Hfa Aerosol Inhaler 2 puff INHALATION Q4 PRN (Reason: Shortness Of Breath) RF: 0 Ocuvite with Lutein 1,000 unit-200 mg-60 unit-2 mg Tablet 1 tab PO QDL RF: 0 cholecalciferol (vitamin D3) [Vitamin D3] 2,000 unit Capsule 2,000 unit PO QDL RF: 0 aspirin [Aspirin Low Dose] 81 mg Tablet,Delayed Release (Dr/Ec) 81 mg PO HS RF: 0 risedronate 35 mg tablet 35 mg PO WK RF: 0 menthol-zinc oxide [Calmoseptine] 0.44-20.6 % Ointment 1 applic EXT BID Qty: 1 RF: 2 prednisone 5 mg tablet 5 mg PO QAM RF: 0 folic acid 1 mg tablet 1 mg PO QAM RF: 0 hydroxychloroquine 200 mg tablet 200 mg PO HS RF: 0 duloxetine 30 mg capsule,delayed release(DR/EC) 60 mg PO QDL RF: 0 thiamine mononitrate (vit B1) 100 mg tablet 50 mg PO QAM RF: 0 fluticasone furoate-vilanterol 100-25 mcg/dose Blister With Device 1 inh INHALATION QDL RF: 0 Centrum Silver Women 8 mg iron-400 mcg-300 mcg Tablet 1 tab PO QDL RF: 0 rosuvastatin 10 mg Tablet 10 mg PO QAM RF: 0 pantoprazole 40 mg Tablet,Delayed Release (Dr/Ec) 40 mg PO QAM RF: 0 montelukast 10 mg Tablet 10 mg PO HS RF: 0 lisinopril 2.5 mg tablet 2.5 mg PO QAM RF: 0 benzonatate 100 mg capsule 100 mg PO TID PRN (Reason: Cough) RF: 0 acetaminophen [Tylenol 8 Hour] 650 mg Tablet Extended Release 1,950 mg PO Q12H PRN (Reason: Pain) RF: 0 solifenacin [Vesicare] 10 mg tablet 10 mg PO QDL RF: 0 vancomycin 125 mg Capsule 125 mg PO DAILY RF: 0 metoprolol succinate 50 mg Tablet Extended Release 24 Hr 50 mg PO DAILY RF: 0 Referrals Referrals: Leni Moyer DO [Primary Care Provider] - Discharge Problem: Syncope Qualifiers: Syncope type: unspecified Qualified Code(s): R55 - Syncope and collapse
--- NOTE | 2021-08-22 11:30 | XRay Report ---
XR chest 1V portable CLINICAL HISTORY: Chest Pain TECHNIQUE: Single frontal radiograph of the chest was obtained. Comparison: Comparison is made to chest one view 12 6 FINDINGS: No lines and tubes are seen. The cardiomediastinal silhouette is normal. The lungs are clear. No evid ence of pleural effusion or pneumothorax. IMPRESSION: No acute chest disease. ACT 112: Negative or not required by law. Electronically signed by: Jose Morton M.D. 08/22/2021 11:29 AM
[2021-08-22 11:40] LABS: Basophils # (auto) 0.02 K/uL (0-0.2); Basophils % (auto) 0.1 %; Hematocrit (blood only) 35.6 % (37-47); Hemoglobin 12.4 g/dL (12.0-16.0); Immature Granulocytes # (auto) 0.16 K/uL (0.00-0.02); Immature Granulocytes % (auto) 1.1 %; Lymphocytes # (auto) 1.69 K/uL (1.2-3.4); Mean Corpuscular Hemoglobin 31.1 pg (25-34); Mean Corpuscular Hgb Conc 34.8 g/dL (32-36); Mean Corpuscular Volume 89.2 fL (80-100); Mean Platelet Volume 9.4 fL (7.4-10.4); Monocytes # (auto) 0.73 K/uL (0.11-0.59); Monocytes % (auto) 5.2 %; Neutrophils # (auto) 11.52 K/uL (1.4-6.5); Neutrophils % (auto) 81.6 %; Platelet Count 300 K/uL (130-400); RDW Coefficient of Variation 14.1 % (11.5-14.5); RDW Standard Deviation 46.4 fL (36.4-46.3); Red Blood Count 3.99 M/uL (4.2-5.4); White Blood Count 14.12 K/uL (4.8-10.8)
--- NOTE | 2021-08-22 11:44 | CT Scan Report ---
CT head/brain wo con CLINICAL HISTORY: syncope Technique: Contiguous axial CT images of the head were acquired from the base of the skull to the law mj without intravenous contrast administration. Images were viewed in brain, subdural and bone [facility]. Automated dose lowering techniques and/or adjustment according to patient size were utilized for this exam. Comparison: Comparison is made to CT head 11/11/2019 Findings: Areas of decreased attenuation are present in the periventricular and subcortical white matter bilate rally consistent with small vessel ischemic disease. Generalized cerebral atrophy with commensurate e nlargement of the ventricles, sulci, and cisterns is also present. There is no acute intracranial hem orrhage or evidence of acute territorial infarction. No shift of the midline structures, mass effect, or extra-axial abnormalities are shown. Atherosclerotic calcifications are present in the intracran ial segments of the internal carotid arteries. Imaged portions of the paranasal sinuses and mastoid air cells are clear. The orbits appear normal. There are no acute fractures of the calvaria or scalp swelling. Impression: No acute intracranial hemorrhage, no evidence of acute territorial infarction or other acute intracra nial disease process. ACT 112: Negative or not required by law. Electronically signed by: Jose Morton M.D. 08/22/2021 11:43 AM
[2021-08-22 11:59] LABS: Albumin Level 3.2 gm/dl (3.4-5.0); BUN Creatinine Ratio 18.1 (10-20); Calcium 9.5 mg/dl (8.5-10.1); Creatinine Clr Calc Pharmacy 22.9 ml/min; Est GFR (African American) 37.5 ml/min; Est GFR (Non-African American) 32.4 ml/min; Potassium 4.6 mmol/L (3.5-5.1)
[2021-08-22 12:19] LABS: Albumin Globulin Ratio 0.8 (0.9-2); Bilirubin,Total 0.7 mg/dl (0.2-1); Globulin 3.9 gm/dl (2.5-4.0); Total Protein 7.1 gm/dl (6.4-8.2); Troponin I 0.153 ng/ml (0-0.045)
[2021-08-22] MEDS ORDERED: ASPIRIN CHEW 324 MG ONE (12:47)
--- NOTE | 2021-08-22 12:55 | History & Physical Report ---
Date of Service August 22, 2021 Assessment & Plan (1) Syncope: (2) RSV infection: (3) Hyponatremia: (4) Visual hallucinations: Plan: This is a 75-year-old female who has significant past medical history of CAD, HTN, HLD, T2DM, history of C. difficile on chronic vancomycin therapy, history of ILD, COPD, rheumatoid arthritis on chronic prednisone therapy, CKD stage III, gouty arthropathy, GERD who presents to ED after sustaining a syncopal episode prior to arrival. Syncope Patient without prodrome prior to event; however she does endorse coughing Could be vasovagal versus orthostatic versus cardiogenic CT head without acute abnormality Obtain orthostatics Monitor on telemetry Echocardiogram Consult cardiology in setting of EKG change and elevated troponin Carotid ultrasound Elevated troponin History of CAD-cardiac cath in 2012 revealed nonobstructive disease in LAD On ASA, statin, metoprolol, LILI as outpatient Hold LILI in setting of mild ANDRESSA Obtain echocardiogram Cycle troponins Consult cardiology Currently chest pain-free, received 325 mg ASA in ED CKD stage III with evidence of renal insufficiency Baseline creatinine 1.3-1.4 BUN/creatinine 28 and 1.57 In setting of ongoing respiratory illness may be secondary to dehydration Gentle IV fluid x1 L Avoid nephrotoxic agents, hold lisinopril Repeat BMP in a.m. Hyponatremia Hypochloremia Possibly in setting of poor p.o. intake Obtain urine osm, urine na, serum osm gentle IVF x 1L, repeat Na this evening RSV respiratory infection COPD/ILD no evidence of bacterial component continue supportive care she did receive prednisone 40 mg as outpatient No indication for antibiotics at this time, chest x-ray negative, obtain procalcitonin Continue Breo, and nebulizers, muccinex no acute exac Leukocytosis Obtain urinalysis Patient afebrile May be in setting of steroid use, monitor Pre DM last a1c 6.1 05/2021 obtain a1c in a.m. bsg 174 in ED likely in setting of increased pred use lantus/novolog per protocol HTN bp stable in ED on metoprolol, lisinopril hold lisinopril for now given renal fxn Hx of Cdiff on chronic vanco therapy avoid unnecessary antibiotics Rheumatoid arthritis Continue hydroxychloroquine, daily prednisone DVT ppx: SQ Heparin Disposition: PCU PCP: João Full code Patient was seen and examined in collaboration with Dr. Rodriguez, please see addendum The chart was completed utilizing [employer] Speech voice recognition software. Grammatical errors, random word insertions, pronoun errors, and incomplete sentences are an occasional consequence of this system due to software limitations, ambient noise, and hardware issues. Any formal questions or concerns about the content, text, or information contained within the body of this dictation should be directly addressed to the provider for clarification.. 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 Primary Care Provider: Leni Moyer DO This is a 75-year-old female who has significant past medical history of CAD, HTN, HLD, T2DM, history of C. difficile on chronic vancomycin therapy, history of ILD, COPD, rheumatoid arthritis on chronic prednisone therapy, CKD stage III, gouty arthropathy, GERD who presents to ED after sustaining a syncopal episode prior to arrival. is at bedside. Patient states that she got out of bed this morning and there is a bedside commode next to her bed. When she went to get on the bedside commode her feet slipped out from under her and she fell on her bottom, hitting her head on the bedside commode. Her heard a thud and came running and found her on the floor. When he tried to get her up she was unresponsive for approximately 3 to 5 minutes. She was breathing, but he did not try to take her pulse. She does not recall passing out, but recalls coming to. Prior to passing out she denied any diaphoresis, lightheadedness, dizziness, chest pain, shortness of breath or palpitations. She did have a coughing episode prior to falling off of the bedside commode. Of significance she was recently seen in ER on 08/19 and was diagnosed with RSV. She was prescribed 40 mg of prednisone for 5 days and discharged to home. states that she was running a fever of 100-101 prior to coming to the ER on 08/19. She otherwise has been doing okay since discharge from ER other than weakness. She does have a productive cough with yellow sputum. She denies any chills or sweats, lightheadedness, dizziness, chest pain, shortness of breath, palpitations, nausea, vomiting, diarrhea, dysuria, increased urgency or frequency with urination. She does have chronic incontinence and follows with Dr. Roach for this. She did take her morning medications. also notes over the past 3 to 5 days he has noted her to be hallucinating. She has been seeing and talking to her mother as well as seeing rabbits and cats on the ceiling. Patient is aware of seeing these objects, but it is real to her. In ED patient remained hemodynamically stable. She did not require supplemental oxygen. Chest x-ray was negative for acute abnormality. She did have mild elevation in white blood cell count at 14.12k, sodium low at 127, chloride 95, BUN 28, creatinine 1.57, troponin 0.153, CK 213. Her head CT was negative for acute abnormality. Her EKG was unchanged from 08/19 and did reveal a sinus bradycardia with a right bundle branch block. However in comparison from EKG from November 2019 there is evidence of new Q waves in inferior lateral leads. She did receive full-strength aspirin in ED. Allergies Allergy/AdvReac Type Severity Reaction Status Date / Time methotrexate Allergy Intermediate RASH/PNEUMO Verified 08/22/21 16:42 NITIS Penicillins Allergy Intermediate hives Verified 08/22/21 16:42 ranitidine Allergy Intermediate rash Verified 08/22/21 12:10 Home Medications Medication Instructions Recorded Confirmed Type duloxetine 30 mg capsule,delayed 60 mg PO QDL 07/20/18 08/22/21 History release folic acid 1 mg tablet 1 mg PO QAM 07/20/18 08/22/21 History hydroxychloroquine 200 mg tablet 200 mg PO HS 07/20/18 08/22/21 History prednisone 5 mg tablet 5 mg PO QAM 07/20/18 08/22/21 History thiamine mononitrate (vit B1) 100 50 mg PO QAM 07/20/18 08/22/21 History mg tablet albuterol sulfate 90 mcg/actuation 2 puff INHALATION Q4 PRN 03/07/19 08/22/21 History aerosol inhaler (ProAir HFA) cholecalciferol (vitamin D3) 50 2,000 unit PO QDL 03/07/19 08/22/21 History mcg (2,000 unit) capsule (Vitamin D3) cyanocobalamin (vitamin B-12) 2,000 mcg PO 3XWK 03/07/19 08/22/21 History 1,000 mcg tablet (Vitamin B-12) nitroglycerin 0.4 mg sublingual 0.4 mg SUBLINGUAL UD 03/07/19 08/22/21 History tablet nystatin 100,000 unit/gram topical 1 applic TOPICAL TID PRN 03/07/19 08/22/21 History powder tramadol 50 mg tablet 50 mg PO BID PRN 03/07/19 08/22/21 History vit A 1,000 unit-C 200 mg-E 60 1 tab PO QDL 03/07/19 08/22/21 History unit-lutein 2 mg and minerals tablet (Ocuvite with Lutein) fluticasone furoate 100 1 inh INHALATION QDL 11/12/19 08/22/21 History mcg-vilanterol 25 mcg/dose inhalation powder multivit with 1 tab PO QDL 11/12/19 08/22/21 History iuzbkrsr-dwhm-YY-lutein 8 mg iron-400 mcg-300 mcg tablet (Centrum Silver Women) rosuvastatin 10 mg tablet 10 mg PO QAM 11/12/19 08/22/21 History aspirin 81 mg tablet,delayed 81 mg PO HS 10/09/20 08/22/21 History release (Aspirin Low Dose) risedronate 35 mg tablet 35 mg PO WK 10/09/20 08/22/21 History menthol 0.44 %-zinc oxide 20.6 % 1 applic EXT BID #1 tube 10/13/20 08/22/21 Rx topical ointment (Calmoseptine) lisinopril 2.5 mg tablet 2.5 mg PO QAM 11/15/20 08/22/21 History montelukast 10 mg tablet 10 mg PO HS 11/15/20 08/22/21 History pantoprazole 40 mg tablet,delayed 40 mg PO QAM 11/15/20 08/22/21 History release latanoprost 0.005 % eye drops 1 drp OPHTHALMIC (EYE) HS 01/03/21 08/22/21 History benzonatate 100 mg capsule 100 mg PO TID PRN 08/19/21 08/22/21 History acetaminophen 650 mg 1,950 mg PO Q12H PRN 08/22/21 08/22/21 History tablet,extended release (Tylenol 8 Hour) metoprolol succinate 50 mg 50 mg PO DAILY 08/22/21 08/22/21 History tablet,extended release 24 hr solifenacin 10 mg tablet (Vesicare) 10 mg PO QDL 08/22/21 08/22/21 History vancomycin 125 mg capsule 125 mg PO DAILY 08/22/21 08/22/21 History Past Med/Surg History Medical History Asthma inhalers prn Chronic steroid use prednisone daily CKD (chronic kidney disease), stage III COPD (chronic obstructive pulmonary disease) inhalers prn Depression DJD of right shoulder DM type 2 (diabetes mellitus, type 2) Dyslipidemia Gastroparesis GERD (gastroesophageal reflux disease) Glaucoma Gout H/O interstitial lung disease "drug induced- methotrexate " Heart disease HTN (hypertension) Migraines NSTEMI (non-ST elevated myocardial infarction) (08/06/13) Osteoarthritis Peripheral neuropathy Rheumatoid arthritis "on chronic steroids" Surgical History H/O cardiac catheterization "cath 07/2013- single vessel CAD involving apical segment LAD, medical management indicated" H/O colonoscopy History of esophagogastroduodenoscopy (EGD) History of hysterectomy History of tooth extraction all top teeth S/P removal of ovarian cyst S/P rotator cuff repair "right shoulder" S/P total knee arthroplasty "left knee" Family History Father Family history of diabetes mellitus Mother Heart disease Hypertension Other No family history of adverse response to anesthesia Social History Smoking Status: Never smoker Second Hand Exposure: No; Hx Alcohol Use: No Hx Substance Use: No Preferred Language: Mosotho Communication Ability: Effective [place] 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 Beliefs That Will Affect Care: Adventism Adventism Beliefs: Yazidi marital status: Current Living Situation: Spouse Feels Safe at Home: Yes Assistive Devices: None Review of Systems Review of Systems: All systems reviewed & are unremarkable except as noted in HPI & below Physical Exam Physical Exam: Constitutional: Elderly, female, appears older than stated age, answers questions appropriately, soft-spoken, vitals as above, NAD, sitting up in bed, pleasant, conversing easily Head: Normocephalic, Atraumatic Eyes: PERRL, conjunctivae normal, anicteric sclerae ENMT: external ear and nose normal, oropharynx normal, poor dentition Neck: trachea midline, no thyromegaly normal visual inspection Respiratory: Harsh cough noted on exam, normal respiratory effort, lungs clear to auscultation, no wheeze, rales, rhonchi. Normal insp/exp effort, no accessory muscle use Cardiovascular: RRR, no murmur, no edema Vessels: no JVD or carotid bruit Chest: normal inspection of chest Abdomen: normal bowel sounds, soft, nontender, no hepatosplenomegaly Musculoskeletal: no cyanosis or clubbing, extremities motor strength 5/5 Skin: no rashes, warm and dry normal turgor Neurologic: PERRL, EOMI, accommodation nl, no face palsy, no dysarthria CN's II-XI intact bilaterally and moves all extremities Psychiatric: A+Ox3, euthymic affect Lymphatic: no cervical or axillary lymphadenopathy : deferred Results & Data Results & Data ([facility]) Vital Signs (Past 12 Hours) Vital Signs Temp Pulse Pulse Resp BP BP Pulse Ox 08/22/21 12:35 60 22 144/81 H 98 08/22/21 12:24 100 08/22/21 10:18 36.7 C 56 L 18 126/60 99 Diagnostic Findings Chest X-Ray 08/22/21 11:06 XR chest 1V portable CLINICAL HISTORY: Chest Pain TECHNIQUE: Single frontal radiograph of the chest was obtained. Comparison: Comparison is made to chest one view 12 6 FINDINGS: No lines and tubes are seen. The cardiomediastinal silhouette is normal. The lungs are clear. No evidence of pleural effusion or pneumothorax. IMPRESSION: No acute chest disease. ACT 112: Negative or not required by law. Electronically signed by: Jose Morton M.D. 08/22/2021 11:[address] 08/22/21 11:06 CT head/brain wo con CLINICAL HISTORY: syncope Technique: Contiguous axial CT images of the head were acquired from the base of the skull to the vertex without intravenous contrast administration. Images were viewed in brain, subdural and bone windows. Automated dose lowering techniques and/or adjustment according to patient size were utilized for this exam. Comparison: Comparison is made to CT head 11/11/2019 Findings: Areas of decreased attenuation are present in the periventricular and subcortical white matter bilaterally consistent with small vessel ischemic disease. Generalized cerebral atrophy with commensurate enlargement of the ventricles, sulci, and cisterns is also present. There is no acute intracranial hemorrhage or evidence of acute territorial infarction. No shift of the midline structures, mass effect, or extra-axial abnormalities are shown. Atherosclerotic calcifications are present in the intracranial segments of the internal carotid arteries. Imaged portions of the paranasal sinuses and mastoid air cells are clear. The orbits appear normal. There are no acute fractures of the calvaria or scalp swelling. Impression: No acute intracranial hemorrhage, no evidence of acute territorial infarction or other acute intracranial disease process. ACT 112: Negative or not required by law. Electronically signed by: Jose Morton M.D. 08/22/2021 11:43 AM ECG Rate (beats per minute): 59 Rhythm: sinus bradycardia Additional Comments: Compared to EKG patient now with inferior lateral T wave inversions more promine nt Q wave COVID-19 Results Results COVID-19 Adm Lab Results: RBC 3.99 M/uL (4.2-5.4) L 08/22/21 WBC 14.12 K/uL (4.8-10.8) H 08/22/21 Hgb 12.4 g/dL (12.0-16.0) 08/22/21 Hct 35.6 % (37-47) L 08/22/21 Plt Count 300 K/uL (130-400) 08/22/21 Neutrophils (%) (Auto) 81.6 % 08/22/21 Lymphocytes (%) (Auto) 12.0 % 08/22/21 Monocytes # (Auto) 0.73 K/uL (0.11-0.59) H 08/22/21 Eosinophils # (Auto) 0.00 K/uL (0-0.5) 08/22/21 Immature Granulocyte % (Auto) 1.1 % 08/22/21 Neutrophils # (Auto) 11.52 K/uL (1.4-6.5) H 08/22/21 Lymphocytes # (Auto) 1.69 K/uL (1.2-3.4) 08/22/21 Monocytes # (Auto) 0.73 K/uL (0.11-0.59) H 08/22/21 Eosinophils # (Auto) 0.00 K/uL (0-0.5) 08/22/21 Basophils # (Auto) 0.02 K/uL (0-0.2) 08/22/21 Immature Granulocyte # (Auto) 0.16 K/uL (0.00-0.02) H 08/22/21 Na 126 mmol/L (136-145) L 08/22/21 K 4.5 mmol/L (3.5-5.1) 08/22/21 Cl 95 mmol/L (98-107) L 08/22/21 CO2 23 mmol/L (21-32) 08/22/21 Anion Gap 8.0 (3-11) 08/22/21 BUN 31 mg/dl (7-18) H 08/22/21 Creatinine 1.71 mg/dl (0.6-1.2) H 08/22/21 BUN/Creatinine Ratio 18.3 (10-20) 08/22/21 Glucose Level 178 mg/dl (70-99) H 08/22/21 Ca 9.6 mg/dl (8.5-10.1) 08/22/21 Total Bilirubin 0.7 mg/dl (0.2-1) 08/22/21 AST/SGOT 69 U/L (15-37) H 08/22/21 ALT/SGPT 62 (12-78) 08/22/21 Alkaline Phosphatase 74 U/L (45-117) 08/22/21 Total Protein 7.1 gm/dl (6.4-8.2) 08/22/21 Albumin 3.2 gm/dl (3.4-5.0) L 08/22/21 Globulin 3.9 gm/dl (2.5-4.0) 08/22/21 Albumin/Globulin Ratio 0.8 (0.9-2) L 08/22/21 Total CK 213 U/L (26-192) H 08/22/21 Troponin I 0.128 ng/ml (0-0.045) H* 08/22/21 Procalcitonin 0.16 ng/ml (0-0.5) 08/22/21 D-Dimer 1040 ug/L FEU (0-500) H* 08/22/21 COVID-19 PCR NEGATIVE (Negative) 08/22/21 Influenza Virus Type A (PCR) Negative (Neg) 08/22/21 Influenza Virus Type B (PCR) Negative (Neg) 08/22/21 Chest X-Ray 08/22/21 Code Status & VTE Plan Code Status Full code VTE Prophylaxis Plan VTE Prophylaxis will be ordered: Yes Supervising Physician Co-Signing Physician Notes Attending addendum: The patient was seen and examined in emergency room in presence of the She was brought in with syncopal episode after getting out of commode this morning She looks very pale and was out for about 3 minutes as per the No history of seizure-like activities, no incontinence and no nausea no vomiting Has had similar symptoms before On examination Lying in bed comfortably with blood pressure on the upper side at 145/107 Chest-clear to auscultate bilaterally Heart-S1-S2, regular Abdomen-benign Extremities-no edema 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 Generally weak and lethargic Her admission labs, EKG and imaging studies reviewed Significant findings include hyponatremia, EKG abnormality with increasing troponin Admitted with syncope likely secondary to vasovagal Cardiology has been consulted Also noted to have high D-dimer, will get CT of the abdomen to rule out any intra-abdominal malignancy, will get CTA and/or VQ scan down the line to rule out pulmonary embolism Agree with assessment and plan as outlined above by Karla Rodriguez
[2021-08-22] MEDS ORDERED: SODIUM CHLORIDE 0.9% 1000ML 1,000 ML IV SCH (14:00)
[2021-08-22 14:03] LABS: Influenza A virus by PCR Negative (Neg); Influenza B virus by PCR Negative (Neg); SARS CoV2 RNA(COVID-19) InHosp NEGATIVE (Negative)
[2021-08-22 14:34] LABS: RSV by PCR Positive (Neg)
[2021-08-22 15:00] LABS: Appearance Urine Cloudy (Clear); Bacteria Urine Automated 4+ (Negative); Bilirubin Urine Negative (Negative); Blood Urine Negative (Negative); Color Urine Yellow; Glucose Urine UA Negative (Negative); Ketones Urine Negative (Negative); Leukocyte Esterase Urine 1+ (Negative); Nitrite Urine Negative (Negative); Protein Urine 1+ (Negative); RBC Urine Automated 0-4 /hpf (0-4); Specific Gravity Urine 1.016 (1.000-1.030); Urobilinogen Urine Negative (Negative)
[2021-08-22 15:31] LABS: D Dimer 1040 ug/L FEU (0-500)
--- NOTE | 2021-08-22 15:57 | Ultrasound Report ---
BILATERAL CAROTID DOPPLER STUDY HISTORY: syncope COMPARISON: None. TECHNIQUE: Real-time, grayscale, and color Doppler sonography of the carotid arteries was performed. Imaging reviewed in the transverse and longitudinal planes. All measurements were calculated based on NASCET criteria. FINDINGS: Antegrade flow is seen in the bilateral vertebral arteries. The brachial pressures are hemodynamically similar. Moderate calcified plaque within the bilateral carotid bifurcations. This results in suboptimal evalu ation of the carotid arteries. The peak systolic velocity within the right ICA is 43 cm/s. The right systolic ratio is 0.9. The peak systolic velocity within the left ICA is 53 cm/s. The left systolic ratio is 1.2. IMPRESSION: Moderate calcified plaque within the bilateral carotid bifurcations without hemodynamically significa nt stenosis ACT 112: Negative or not required by law. Electronically signed by: Peter Olivarez M.D. 08/22/2021 3:56 PM
[2021-08-22] MEDS ORDERED: cefTRIAXone SODIUM 1,000 MG/50 ML BAG IV STA (16:42)
--- NOTE | 2021-08-22 16:43 | Cardiology Consultation ---
Date of Consultation August 22, 2021 Assessment & Plan (1) NSTEMI (non-ST elevated myocardial infarction): EKG today reveals sinus bradycardia 59 bpm with chronic right bundle branch block, new T wave inversions in the precordial leads V3 to V6, that had not been present on 08/19/2021. It is noted however the intermittent similar T wave inversions have been observed during multiple hospital stays when she has beenacutely ill, with dramatic deep T wave inversions noted at time of severe sepsis episode in 2018 at which time her troponin peaked just above 2 ng/ml and she required ventilator support. 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 Of note however, similar findings EKG and echocardiographic had also been observed when she was seen by the undersigned for sepsis in 2018, at which time treatment of the underlying illness was recommended and supportive care/medical management for myocardial ischemia. The patient does have a history of cardiac catheterization which took place in July, performed by Dr. Meza , with findings at that time of single- vessel coronary heart disease involving the apical portion of the LAD which was a 1 mm vessel and not amenable to PCI. I would speculate that she is having ischemia in that territory at present due to her acute on medical illness. Of note with regards to her transient loss of consciousness episode, this has been described on multiple past occasions when she was admitted for acute illness including a 2013 admission when she was seen by the undersigned as well as neurology. Agree with IV fluids, unfractionated heparin without bolus. Medication therapy to include aspirin, continuation of her chronic metoprolol therapy rosuvastatin. I discussed the patient's case with her nurse at the bedside, and discussed that I was ordering heparin. History of Present Illness History of Present Illness Belem Rodriguez is a 75-year-old female seen in cardiology consultation per the request [facility] of syncope and abnormal EKG. Patient's primary coffee sampler is Dr. Quintero of our practice, however I have seen her on several past hospital stays. The patient had recently been seen by both primary care and then in the emergency department for respiratory illness, with findings of RSV, prompting an increase in her chronic prednisone dose to 40 mg daily for several days as recommended at time of ED visit on 08/19/2021. She was home this morning, and was found by her having fallen off the bedside commode, with a transient loss of consciousness episode. At the time of my assessment in emergency room bay C11B, the patient was conversant. She denies any chest discomfort or shortness of breath. No hallucinations observed at present, but apparently she had been having some of these at home. Allergies Allergy/AdvReac Type Severity Reaction Status Date / Time methotrexate Allergy Intermediate RASH/PNEUMO Verified 08/22/21 16:42 NITIS Penicillins Allergy Intermediate hives Verified 08/22/21 16:42 ranitidine Allergy Intermediate rash Verified 08/22/21 12:10 Home Medications Medication Instructions Recorded Confirmed Type duloxetine 30 mg capsule,delayed 60 mg PO QDL 07/20/18 08/22/21 History release folic acid 1 mg tablet 1 mg PO QAM 07/20/18 08/22/21 History hydroxychloroquine 200 mg tablet 200 mg PO HS 07/20/18 08/22/21 History prednisone 5 mg tablet 5 mg PO QAM 07/20/18 08/22/21 History thiamine mononitrate (vit B1) 100 50 mg PO QAM 07/20/18 08/22/21 History mg tablet albuterol sulfate 90 mcg/actuation 2 puff INHALATION Q4 PRN 03/07/19 08/22/21 History aerosol inhaler (ProAir HFA) cholecalciferol (vitamin D3) 50 2,000 unit PO QDL 03/07/19 08/22/21 History mcg (2,000 unit) capsule (Vitamin D3) cyanocobalamin (vitamin B-12) 2,000 mcg PO 3XWK 03/07/19 08/22/21 History 1,000 mcg tablet (Vitamin B-12) nitroglycerin 0.4 mg sublingual 0.4 mg SUBLINGUAL UD 03/07/19 08/22/21 History tablet nystatin 100,000 unit/gram topical 1 applic TOPICAL TID PRN 03/07/19 08/22/21 History powder tramadol 50 mg tablet 50 mg PO BID PRN 03/07/19 08/22/21 History vit A 1,000 unit-C 200 mg-E 60 1 tab PO QDL 03/07/19 08/22/21 History unit-lutein 2 mg and minerals tablet (Ocuvite with Lutein) fluticasone furoate 100 1 inh INHALATION QDL 11/12/19 08/22/21 History mcg-vilanterol 25 mcg/dose inhalation powder multivit with 1 tab PO QDL 11/12/19 08/22/21 History sofzggye-hxnr-[place]-lutein 8 mg iron-400 mcg-300 mcg tablet (Centrum Silver Women) rosuvastatin 10 mg tablet 10 mg PO QAM 11/12/19 08/22/21 History aspirin 81 mg tablet,delayed 81 mg PO HS 10/09/20 08/22/21 History release (Aspirin Low Dose) risedronate 35 mg tablet 35 mg PO WK 10/09/20 08/22/21 History menthol 0.44 %-zinc oxide 20.6 % 1 applic EXT BID #1 tube 10/13/20 08/22/21 Rx topical ointment (Calmoseptine) lisinopril 2.5 mg tablet 2.5 mg PO QAM 11/15/20 08/22/21 History montelukast 10 mg tablet 10 mg PO HS 11/15/20 08/22/21 History pantoprazole 40 mg tablet,delayed 40 mg PO QAM 11/15/20 08/22/21 History release latanoprost 0.005 % eye drops 1 drp OPHTHALMIC (EYE) HS 01/03/21 08/22/21 History benzonatate 100 mg capsule 100 mg PO TID PRN 08/19/21 08/22/21 History acetaminophen 650 mg 1,950 mg PO Q12H PRN 08/22/21 08/22/21 History tablet,extended release (Tylenol 8 Hour) metoprolol succinate 50 mg 50 mg PO DAILY 08/22/21 08/22/21 History tablet,extended release 24 hr solifenacin 10 mg tablet (Vesicare) 10 mg PO QDL 08/22/21 08/22/21 History vancomycin 125 mg capsule 125 mg PO DAILY 08/22/21 08/22/21 History Patient History Medical History Asthma inhalers prn Chronic steroid use prednisone daily CKD (chronic kidney disease), stage III COPD (chronic obstructive pulmonary disease) inhalers prn Depression DJD of right shoulder DM type 2 (diabetes mellitus, type 2) Dyslipidemia Gastroparesis GERD (gastroesophageal reflux disease) Glaucoma Gout H/O interstitial lung disease "drug induced- methotrexate " Heart disease HTN (hypertension) Migraines NSTEMI (non-ST elevated myocardial infarction) (08/06/13) Osteoarthritis Peripheral neuropathy Rheumatoid arthritis "on chronic steroids" Surgical History H/O cardiac catheterization "cath 07/2013- single vessel CAD involving apical segment LAD, medical management indicated" H/O colonoscopy History of esophagogastroduodenoscopy (EGD) History of hysterectomy History of tooth extraction all top teeth S/P removal of ovarian cyst S/P rotator cuff repair "right shoulder" S/P total knee arthroplasty "left knee" Family History Father Family history of diabetes mellitus Mother Heart disease Hypertension Other No family history of adverse response to anesthesia Social History Smoking Status: Never smoker Second Hand Exposure: No; Hx Alcohol Use: No Hx Substance Use: No Preferred Language: Kittitian Communication Ability: Effective Mental Health Program Director Required: Yes Beliefs That Will Affect Care: Sikhism Sikhism Beliefs: Buddhism marital status: Current Living Situation: Spouse Feels Safe at Home: Yes Assistive Devices: None Review of Systems Review of Systems: Unobtainable due to cognitive status Physical Exam Physical Exam: Temp Pulse Resp BP Pulse Ox 36.7 C 91 H 24 121/83 97 08/22/21 10:18 08/22/21 16:06 08/22/21 16:06 08/22/21 16:06 08/22/21 16:06 Constitutional: + thin (Frail in appearance); no acute distress Respiratory: No rales or rhonchi. Cardiovascular: RRR, no murmur, no edema Gastrointestinal (Abdomen): normal bowel sounds, soft, nontender, no hepatosplenomegaly Neurologic: Moves all 4 extremities on command. Results & Data ([facility]) Vital Signs (Past 12 Hours) Vital Signs Temp Pulse Pulse Pulse Resp BP BP 08/22/21 16:06 91 H 24 121/83 08/22/21 14:48 62 15 145/107 H 12/09/21 12:35 60 22 144/81 H 08/22/21 12:24 08/22/21 10:18 36.7 C 56 L 18 126/60 Pulse Ox 08/22/21 16:06 97 08/22/21 14:48 99 08/22/21 12:35 98 08/22/21 12:24 100 08/22/21 10:18 99
[2021-08-22] MEDS ORDERED: HEPARIN SODIUM/DEXTROSE 25,000 UNITS/500 ML BAG IV SCH (16:45)
[2021-08-22 17:39] LABS: BUN Creatinine Ratio 18.3 (10-20); Calcium 9.6 mg/dl (8.5-10.1); Est GFR (African American) 33.8 ml/min; Est GFR (Non-African American) 29.2 ml/min; Potassium 4.5 mmol/L (3.5-5.1)
[2021-08-22 17:46] LABS: Troponin I 0.128 ng/ml (0-0.045)
[2021-08-22] MEDS ORDERED: HEPARIN 25000 UNIT/500 ML D5W IV ONE (17:55)
--- NOTE | 2021-08-22 19:16 | CT Scan Report ---
CT abd pelvis wo con CLINICAL HISTORY: f/u CT 10/09/20 - R kidney density . This was followed up on CT of 11/15/2020 and MRI of the abdomen from 04/30/2021 with the findings demonstrating a cortical infarct. COMPARISON STUDY: 10/09/2020, 11/15/2020 and MRI from 04/30/2021 CT DOSE: 318.59 mGy.cm TECHNIQUE: Standard CT of the Abdomen and Pelvis was performed without IV contrast. The patient did not receive oral contrast. A dose lowering technique was utilized adhering to the principles of GAMAL Melendez. FINDINGS: Lung base: The lung bases are clear. There is again mild cardiomegaly with coronary artery calcifica tion. Abdominal cavity: There is no evidence for abdominal mass, adenopathy or ascites. There has been interval development of a large hematoma within the rectus abdominis muscle on the rig ht measuring at least 10.4 x 3.5 cm in transverse and AP diameters and extending for a length of at l east 13 cm. Liver: The liver is homogeneous in attenuation on these limited noncontrast images.. Spleen: The spleen is homogeneous in attenuation on these limited noncontrast images. Pancreas: The pancreas is homogeneous in attenuation on these limited noncontrast images. Gall Bladder: Surgical clips are present previous cholecystectomy. Adrenal glands: The adrenal glands are normal in size and attenuation on these limited noncontrast im ages. Kidneys: The kidneys are homogeneous in attenuation on these limited noncontrast images. There is no evidence for gross renal mass, calculus or hydronephrosis bilaterally. 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 Bowel: The bowel loops are normally placed within the abdomen and pelvis without evidence for dilatat ion or obstruction. There is no evidence for mass lesion. There is mild diverticulosis of the descend ing and sigmoid colon. There are no inflammatory changes present. There is no evidence for free air. There is a normal appendix in the right lower quadrant. Bladder: There is no evidence for focal bladder wall thickening, calculus or diverticulum. : There is no evidence for pelvic mass or adenopathy. The patient is status post hysterectomy. Vasculature: There is no evidence for focal aneurysmal dilatation of the abdominal aorta. Mild athero sclerotic calcification is present. Osseous structures: There is no acute osseous pathology. Degenerative changes are seen within the spi ne. IMPRESSION: 1. Stable right renal lesion as described above characteristic of a renal infarct. 2. Interval development of a large hematoma within the right rectus abdominis muscle. 3. Otherwise, no acute intra-abdominal or pelvic abnormality on these limited noncontrast images. 4. Additional nonacute findings are delineated above. ACT 112: Negative or not required by law. Electronically signed by: Niranjan Yi M.D. 08/22/2021 7:15 PM
--- NOTE | 2021-08-22 19:32 | Communication Note ---
Date of Service: August 22, 2021 CT a/p: IMPRESSION: 1. Stable right renal lesion as described above characteristic of a renal infarct. 2. Interval development of a large hematoma within the right rectus abdominis muscle. 3. Otherwise, no acute intra-abdominal or pelvic abnormality on these limited noncontrast images. 4. Additional nonacute findings are delineated above. Pt started on IV heparin due to elevated trop, reduced ejection fraction CT a/p revealing new large hematoma of right rectus abdominis muscle. Will D/c Heparin Pt is w/o abd complaint repeat h/h with next trop Signed out to alligator trapper
[2021-08-22] MEDS: Heparin IV Adult Wt-Based Standard *NO* Bolus Protocol IV SCH ×2 (21:25→21:26)
[2021-08-22] MEDS ORDERED: GLUCOSE 40% GEL 15 GM TUBE PO PRN (22:27)
[2021-08-22] MEDS ORDERED: GLUCOSE 10 TABS/TUBE PO PRN (22:27)
[2021-08-22] MEDS ORDERED: POLYETHYLENE (MIRALAX) 17 GM PACK PO PRN (22:27)
[2021-08-22] MEDS ORDERED: ALUMINUM/MAGNESIUM SUSP 30 ML UDC PO PRN (22:27)
[2021-08-22] MEDS ORDERED: GLUCAGON FOR INJ 1 MG VIAL SQ PRN (22:27)
[2021-08-22] MEDS ORDERED: CARBOHYDRATES FOR HYPOGLYCEMIA PO PRN (22:27)
[2021-08-22] MEDS ORDERED: DEXTROSE 50% 50 ML SYRINGE IV PRN (22:27)
[2021-08-22] MEDS ORDERED: MAGNESIUM HYDROXIDE SUSP 30 ML UDC PO PRN (22:27)
[2021-08-22] MEDS ORDERED: NYSTATIN POWDER 15GM BTL EXT PRN (22:27)
[2021-08-22] MEDS ORDERED: ACETAMINOPHEN 325 MG TAB PO PRN (22:27)
[2021-08-22 22:58] LABS: Hematocrit (blood only) 35.8 % (37-47); Hemoglobin 12.2 g/dL (12.0-16.0)
[2021-08-22] MEDS ORDERED: ALBUTEROL HFA 8 GM INHALER INH PRN (23:24)
[2021-08-23] MEDS: ALBUT/IPRATROP 3MG/0.5MG NEB 3 ML VIAL NEB SCH ×2 (00:06→07:04)
[2021-08-23] MEDS: guaiFENesin 600 MG TABCR PO SCH ×3 (00:44→20:51)
[2021-08-23] MEDS: HYDROXYCHLOROQUINE SULFATE 200 MG TAB PO SCH ×2 (00:44→20:51)
[2021-08-23] MEDS: MONTELUKAST SODIUM 10 MG TABLET PO SCH ×2 (00:44→20:51)
[2021-08-23] MEDS: LATANOPROST 0.005% OP SOLN 2.5 ML BTL OP SCH ×2 (00:44→20:51)
[2021-08-23] MEDS: BENZONATATE 100 MG CAPSULE PO SCH ×4 (00:44→20:51)
[2021-08-23] MEDS: ASPIRIN 81 MG ECTAB PO SCH ×2 (00:44→20:51)
[2021-08-23] MEDS: INSULIN ASPART PER UNIT SC SCH ×5 (00:45→20:58)
[2021-08-23] MEDS: INSULIN GLARGINE SOLOSTAR 100 UNITS/ML 3 ML PEN SC SCH ×3 (00:48→21:03)
[2021-08-23 06:12] LABS: Basophils # (auto) 0.01 K/uL (0-0.2); Basophils % (auto) 0.1 %; Hematocrit (blood only) 35.7 % (37-47); Hemoglobin 12.1 g/dL (12.0-16.0); Immature Granulocytes # (auto) 0.14 K/uL (0.00-0.02); Immature Granulocytes % (auto) 1.2 %; Lymphocytes # (auto) 3.07 K/uL (1.2-3.4); Lymphocytes % (auto) 25.7 %; Mean Corpuscular Hemoglobin 30.6 pg (25-34); Mean Corpuscular Hgb Conc 33.9 g/dL (32-36); Mean Corpuscular Volume 90.4 fL (80-100); Mean Platelet Volume 9.6 fL (7.4-10.4); Monocytes # (auto) 1.82 K/uL (0.11-0.59); Monocytes % (auto) 15.2 %; Neutrophils % (auto) 57.8 %; Platelet Count 276 K/uL (130-400); RDW Coefficient of Variation 14.3 % (11.5-14.5); RDW Standard Deviation 47.5 fL (36.4-46.3); Red Blood Count 3.95 M/uL (4.2-5.4); White Blood Count 11.94 K/uL (4.8-10.8)
--- NOTE | 2021-08-23 06:20 | Electrocardiogram Report ---
Test Reason : Blood Pressure : / mmHG Vent. Rate : 056 BPM Atrial Rate : 056 BPM P-R Int : 160 ms QRS Dur : 122 ms QT Int : 534 ms P-R-T Axes : 000 143 103 degrees QTc Int : 515 ms Poor data quality, interpretation may be adversely affected Sinus bradycardia Right bundle branch block Left posterior fascicular block Bifascicular block Cannot rule out Inferior infarct , age undetermined T wave abnormality, consider lateral ischemia Poor R wave progression, consider anterior NM vs. lead placement vs. LVH Abnormal ECG When compared with ECG of 19-AUG-2021 11:47, Lateral T wave abnormality is now present Confirmed by Pawan Mcgowan ([id number]) on 08/23/2021 6:19:57 AM Referred By: ED Confirmed By:Pawan Mcgowan
--- NOTE | 2021-08-23 06:29 | Electrocardiogram Report ---
Test Reason : Blood Pressure : / mmHG Vent. Rate : 059 BPM Atrial Rate : 059 BPM P-R Int : 154 ms QRS Dur : 130 ms QT Int : 532 ms P-R-T Axes : -27 146 144 degrees QTc Int : 526 ms Sinus bradycardia Right bundle branch block Possible Lateral infarct , age undetermined Inferior infarct (cited on or before 22-AUG-2021) T wave abnormality, consider anterior ischemia Abnormal ECG When compared with ECG of 22-AUG-2021 10:31, No significant change Confirmed by Pawan Mcgowan ([id number]) on 08/23/2021 6:29:27 AM Referred By: REFERRED SELF Confirmed By:Pawan Mcgowan
[2021-08-23 06:43] LABS: Albumin Level 3.1 gm/dl (3.4-5.0); BUN Creatinine Ratio 21.1 (10-20); Calcium 9.2 mg/dl (8.5-10.1); Creatinine Clr Calc Pharmacy 26.7 ml/min; Est GFR (Non-African American) 33.7 ml/min; Magnesium 2.2 mg/dl (1.8-2.4); Potassium 4.1 mmol/L (3.5-5.1)
[2021-08-23 06:52] LABS: Albumin Globulin Ratio 0.8 (0.9-2); Bilirubin,Total 0.4 mg/dl (0.2-1); Globulin 3.9 gm/dl (2.5-4.0); Thyroid Stimulating Hormone 0.33 uIu/ml (0.300-4.500)
[2021-08-23 08:55] LABS: Estimated Average Glucose 137 mg/dl; Hemoglobin A1C 6.4 % (4.5-5.6)
[2021-08-23] MEDS ORDERED: ALBUT/IPRATROP 3MG/0.5MG NEB 3 ML VIAL NEB PRN (09:15)
[2021-08-23] MEDS: PANTOprazole 40 MG TAB PO SCH (10:30)
[2021-08-23] MEDS: predniSONE 5 MG TAB PO SCH (10:30)
[2021-08-23] MEDS ORDERED: NON-FORMULARY MEDICATION (Vit A,C And E-Lutein-Minerals [Ocuvite With Lutein] 1,000 unit-2 PO SCH (11:30)
[2021-08-23] MEDS: CYANOCOBALAMIN 500 MCG TABLET (VITAMIN B-12) PO SCH (11:37)
[2021-08-23] MEDS: METOPROLOL SUCC 50MG EXT REL TAB PO SCH (11:38)
[2021-08-23] MEDS: FOLIC ACID 1 MG TAB PO SCH (11:38)
[2021-08-23] MEDS: ROSUVASTATIN CALCIUM 10 MG TAB PO SCH (11:40)
[2021-08-23] MEDS: THIAMINE HCL 50 MG TABLET PO SCH (11:40)
[2021-08-23] MEDS: DULoxetine HCL 60 MG CAP PO SCH (11:41)
[2021-08-23] MEDS: CHOLECALCIFEROL 1,000 UNITS 25 MCG TAB PO SCH (11:42)
[2021-08-23] MEDS: FLUTICASONE/VILANTEROL 100/25MCG 14 PUFFS/INHALER INH SCH (11:50)
[2021-08-23] MEDS: CEROVITE ADV FORMULA TAB PO SCH (11:51)
[2021-08-23] MEDS: RASPBERRY SYRUP 5 ML UDP PO SCH (12:45)
[2021-08-23] MEDS: VANCOMYCIN HCL 125 MG/2.5ML SOLN PO SCH (12:46)
--- NOTE | 2021-08-23 13:55 | Cardiology Progress Note ---
Date of Service August 23, 2021 Assessment & Plan (1) NSTEMI (non-ST elevated myocardial infarction): Plan: 75-year-old, frail female with a history of single-vessel coronary heart disease dating back to cardiac catheterization in 2012, with very small diameter apical LAD, 1 mm vessel presents several days after diagnosis with RSV, with progressive illness. Found having fallen off bedside commode, with transient reduced consciousness. She has had on and off again visual hallucinations. As noted, the same issue has been observed in the past when she has been ill as per my 2013 notes. She is in no acute distress and has no complaints, but she is not considered reliable historian. Mild, flat troponin elevation noted, without jordan symptoms of angina subjectively. New apical wall motion abnormality consistent with LAD territory ischemia or stress-induced cardiomyopathy type pattern. Treatment with unfractioned heparin initiated 08/22/2021, and a CT of the abdomen pelvis had been performed in follow-up of known past renal mass, and a new rectus sheath hematoma was found. Heparin therefore discontinued, hemoglobin, blood pressure stable. Continue supportive care. Continue medications including aspirin metoprolol, rosuvastatin. Admission and Anticipated Discharge Date Admission Date: August 22, 2021 Subjective Patient seen in cardiology follow-up, she remains in the emergency department, room CD11B. No acute complaint. Denies chest discomfort or shortness of breath. Telemetry reveals sinus rhythm at 75 bpm. Review of Systems Review of Systems: Unobtainable due to cognitive status Physical Exam Physical Exam: Temp Pulse Resp BP Pulse Ox 36.7 C 75 22 122/79 96 08/22/21 10:18 08/23/21 11:53 08/23/21 11:53 08/23/21 11:53 08/23/21 11:53 Constitutional: + thin (Frail in appearance); no acute distress Respiratory: no respiratory distress, no labored breathing and no cough Cardiovascular: RRR, no murmur, no edema Gastrointestinal (Abdomen): normal bowel sounds, soft, nontender, no hepat osplenomegaly Results & Data ([facility]) Vital Signs (Past 12 Hours) Vital Signs Pulse Resp BP Pulse Ox 08/23/21 11:53 75 22 122/79 96 08/23/21 10:39 79 22 132/75 96 08/23/21 07:07 121 H 91 08/23/21 06:13 74 17 118/66 94 Laboratory Results Cardiac Enzymes 08/22/21 08/22/21 08/23/21 Range/Units 17:07 22:46 05:31 AST 50 H (15-37) U/L Troponin I 0.128 H* 0.077 H* (0-0.045) ng/ml Lipids 08/23/21 Range/Units 05:31 Triglycerides 393 H (0-150) mg/dl Cholesterol 151 (0-200) mg/dl HDL Cholesterol 38 mg/dl Cholesterol/HDL Ratio 4 CBC 08/22/21 08/23/21 Range/Units 22:46 05:31 WBC 11.94 H (4.8-10.8) K/uL RBC 3.95 L (4.2-5.4) M/uL Hgb 12.2 12.1 (12.0-16.0) g/dL Hct 35.8 L 35.7 L (37-47) % Plt Count 276 (130-400) K/uL Neut # (Auto) 6.90 H (1.4-6.5) K/uL Lymph # (Auto) 3.07 (1.2-3.4) K/uL Rock # (Auto) 1.82 H (0.11-0.59) K/uL Eos # (Auto) 0.00 (0-0.5) K/uL Baso # (Auto) 0.01 (0-0.2) K/uL Comprehensive Metabolic Panel 08/22/21 08/23/21 Range/Units 17:07 05:31 Sodium 126 L 130 L (136-145) mmol/L Potassium 4.5 4.1 (3.5-5.1) mmol/L Chloride 95 L 97 L (98-107) mmol/L Carbon Dioxide 23 22 (21-32) mmol/L BUN 31 H 32 H (7-18) mg/dl Creatinine 1.71 H 1.52 H (0.6-1.2) mg/dl Glucose 178 H 109 H (70-99) mg/dl Calcium 9.6 9.2 (8.5-10.1) mg/dl AST 50 H (15-37) U/L ALT 51 (12-78) Alkaline Phosphatase 73 (45-117) U/L Total Protein 7.0 (6.4-8.2) gm/dl Albumin 3.1 L (3.4-5.0) gm/dl Intake and Output 08/22/21 08/23/21 08/23/21 22:59 06:59 14:59 Intake Total 50 / 1050 1000 / 1050 Balance 50 / 1050 1000 / 1050 Intake: IV 50 / 1050 1000 / 1050 Sodium Chloride 0.9% 1000ML 1, 1000 / 1000 000 ml @ 75 mls/hr IV .[id number] [facility] Rx#:[id number] cefTRIAXone SODIUM 1,000 mg In 50 / 50 50 ml @ 100 mls/hr IV [facility] Rx#:[id number] Other: Weight 60 kg 54 kg Weight Measurement Method [facility] Patient Weight 08/24/21 06:59 Weight 54 kg
[2021-08-23] MEDS: VESICARE - ORDER AWAITING ACTION SCH ×2 (16:34→16:42)
--- NOTE | 2021-08-23 17:58 | Hospitalist Progress Note ---
Date of Service August 23, 2021 Assessment & Plan (1) Syncope: Plan: She appears to have had a cardiac event with ongoing NSTEMI as evidenced by echo findings. However, suspect infection prompting syncope in this instance. Notes report she had no prodrome, however she does report feeling that she was about to pass out, she woke up and was clear. A carotid ultrasound reveals moderate calcified plaque in bilateral carotids without hemodynamically significant farhan nosis. A head CT reveals no acute intracranial hemorrhage or other intracranial process. Chest x-ray reveals no acute disease. PT/OT when able to tolerate. Continue treatment for infections as outlined below. Also contributing to this may be electrolyte abnormality with evidence of hyponatremia sodium was 127 on admission up to 130 today. (2) NSTEMI (non-ST elevated myocardial infarction): Plan: Troponin elevation overnight was flat without rise. Resting echocardiogram revealed a new apical hypokinesis with findings compatible with ischemia/injury in a wraparound LAD coronary territory, or stress-induced cardiomyopathy. Based on these results treatment with unfractionated heparin was initiated on 08/22. However a CT of the abdomen pelvis had been performed in follow-up of a known prior renal mass and a new rectus sheath hematoma was found. Heparin was therefore discontinued. She denies any chest pain or shortness of breath today. (3) RSV infection: Plan: RSV infection, continue supportive care, droplet precautions. (4) Immunosuppressed status: Plan: Rheumatoid arthritis with a history of hydroxychloroquine and chronic prednisone use. Continue Plaquenil and prednisone now (5) Hyponatremia: Plan: Hyponatremia likely secondary to poor p.o. intake in setting of recent infections. Continue to trend., patient is eating and drinking at this point. (6) UTI (urinary tract infection): Plan: Continue Rocephin pending culture results and clinical improvement. Continue vancomycin beyond antibiotics given for UTI. (7) Visual hallucinations: Plan: Noted by family members and other providers, patient is oriented and able to reiterate the entire story. Does not appear to be delirious or hallucinating at all. She did admit to chronic diplopia since the spring and difficulty ambul ating as a result of this. Suspect this may be related. Will consult neurology for assistance with expediting this workup as she is having difficulty ambulating, and this issue is largely contributing to her problems. (8) CKD (chronic kidney disease), stage III: Plan: Currently at her baseline, avoid nephrotoxic agents. (9) Recurrent Clostridium difficile diarrhea: Plan: On chronic vancomycin therapy. Continue this now and beyond any new antibiotics that been started. (10) DVT prophylaxis: Plan: Heparin drip has been stopped in setting of hematoma, SCDs ordered Full code Disposition-pending PT/OT recommendations and medical improvement Belkis Seymour DO [facility] Hospitalist Admission and Anticipated Discharge Date Admission Date: August 22, 2021 Subjective 75-year-old female with a history of CHF on chronic vancomycin therapy, and rheumatoid arthritis on chronic prednisone therapy presented with syncope. Work- up revealed elevated troponin with a history of CAD. Cardiology was consulted. The patient is chest pain-free. Troponin elevation overnight was flat without rise. Resting echocardiogram revealed a new apical hypokinesis with findings compatible with ischemia/injury in a wraparound LAD coronary territory, or stress-induced cardiomyopathy. Based on these results treatment with unfractionated heparin was initiated on 08/22. However a CT of the abdomen pelvis had been performed in follow-up of a known prior renal mass and a new rectus sheath hematoma was found. Heparin was therefore discontinued. She denies any chest pain or shortness of breath today. Review of systems reveals ongoing diplopia since the spring. She reports walking into [facility] on occasion and has not seen a doctor for financial reasons. She has poor dentition on the bottom teeth that are significantly decayed. She is planning to have an oral surgeon remove these and reports sore gums and jaw for the last 2 months. No fevers or chills. She has evidence of a urinary tract infection with no dysuria. Patient does report increased urinary urgency however. She also tested positive for RSV and nasal MRSA. Acute illnesses have prompted syncopal events in the past and she certainly has infections at this point. She is overall in good spirits however. Review of Systems Review of Systems: All systems are reviewed and negative except as indicated above. Physical Exam Physical Exam: CONSTITUTIONAL: WNWD, vitals as above, generally well- appearing, NAD EYES: normal conjunctivae, no scleral icterus ENT: external ear and nose normal, MMM, decayed lower dentition. NECK: trachea midline RESPIRATORY: clear to auscultation bilaterally, no crackles, rales or wheezes, normal respiratory effort CARDIOVASCULAR: regular rate and rhythm, S1 and 2 heard without murmurs, gallops or rubs, no JVD, no peripheral edema CHEST: inspection of chest was normal GASTROINTESTINAL: soft, nontender, ND, no guarding MUSCULOSKELETAL: strength 5/5 throughout, head is normocephalic and atraumatic, neck supple, normal palpation of chest wall without tenderness SKIN: warm and dry NEUROLOGIC: CN 2-12 grossly intact, normal cognition, normal speech, no tremor PSYCHIATRIC: alert cooperative and oriented to person, place and time. Results & Data Results & Data ([facility]) Vital Signs (Past 12 Hours) Vital Signs Temp Pulse Resp BP Pulse Ox 08/23/21 16:21 36.7 C 79 18 124/68 96 08/23/21 11:53 75 22 122/79 96 08/23/21 10:39 79 22 132/75 96 08/23/21 07:07 121 H 91 08/23/21 06:13 74 17 118/66 94 Laboratory Results Short CBC 08/22/21 08/23/21 Range/Units 22:46 05:31 WBC 11.94 H (4.8-10.8) K/uL Hgb 12.2 12.1 (12.0-16.0) g/dL Hct 35.8 L 35.7 L (37-47) % Plt Count 276 (130-400) K/uL BMP 08/23/21 05:31 Sodium 130 L Potassium 4.1 Chloride 97 L Carbon Dioxide 22 BUN 32 H Creatinine 1.52 H Glucose 109 H Calcium 9.2 Cardiac Enzymes 08/22/21 Range/Units 22:46 Troponin I 0.077 H* (0-0.045) ng/ml Liver Function 08/23/21 Range/Units 05:31 Total Bilirubin 0.4 (0.2-1) mg/dl AST 50 H (15-37) U/L ALT 51 (12-78) Alkaline Phosphatase 73 (45-117) U/L Albumin 3.1 L (3.4-5.0) gm/dl Medications Administered Current Inpatient Medications Acetaminophen (Acetaminophen 325 Mg Tab) 650 mg PO Q4H PRN PRN Reason: Pain or Fever Stop: 09/21/21 22:26 Al Hydrox/Mg Hydrox/Simethicone (Aluminum/Magnesium Susp 30 Ml Udc) 15 ml PO Q4H PRN PRN Reason: Dyspepsia Stop: 09/21/21 22:26 Albuterol (Albuterol Hfa 8 Gm Inhaler) 2 puffs INH Q4 PRN PRN Reason: Shortness Of Breath Stop: 09/21/21 23:23 Albuterol (Albut/Ipratrop 3mg/0.5mg Neb 3 Ml Vial) 3 ml NEB QIDR PRN PRN Reason: Shortness Of Breath Or Wheezing Stop: 09/21/21 22:26 Aspirin (Aspirin 81 Mg Ectab) 81 mg PO HS [facility] Stop: 09/21/21 22:26 Last Admin: 08/23/21 00:44 Dose: 81 mg Documented by: Benzonatate (Benzonatate 100 Mg Capsule) 100 mg PO TID [facility] Stop: 09/21/21 22:26 Last Admin: 08/23/21 16:32 Dose: 100 mg Documented by: Cyanocobalamin (Cyanocobalamin 500 Mcg Tablet (Vitamin B-12)) 2,000 mcg PO MoWeFr@0900 [facility] Stop: 09/22/21 08:59 Last Admin: 08/23/21 11:37 Dose: 2,000 mcg Documented by: Dextrose (Dextrose 50% 50 Ml Syringe) 25 - 50 ml IV UD PRN; Protocol PRN Reason: Hypoglycemia Protocol Stop: 09/21/21 22:26 Duloxetine HCl (Duloxetine Hcl 60 Mg Cap) 60 mg PO QDL [facility] Stop: 09/22/21 11:29 Last Admin: 08/23/21 11:41 Dose: 60 mg Documented by: Fluticasone/Vilanterol (Fluticasone/Vilanterol 100/25mcg 14 Puffs/Inhaler) 1 puffs INH QDL [facility] Stop: 09/22/21 11:29 Last Admin: 08/23/21 11:50 Dose: 1 puffs Documented by: Folic Acid (Folic Acid 1 Mg Tab) 1 mg PO QAM [facility] Stop: 09/22/21 08:59 Last Admin: 08/23/21 11:38 Dose: 1 mg Documented by: Glucagon (Glucagon For Inj 1 Mg Vial) 1 mg SQ UD PRN; Protocol PRN Reason: Hypoglycemia Protocol Stop: 09/21/21 22:26 Glucose (Glucose 10 Tabs/Tube) 4 - 8 tabs PO UD PRN; Protocol PRN Reason: Hypoglycemia Protocol Stop: 09/21/21 22:26 Glucose (Glucose 40% Gel 15 Gm Tube) 15 - 30 gm PO UD PRN; Protocol PRN Reason: Hypoglycemia Protocol Stop: 09/21/21 22:26 Guaifenesin (Guaifenesin 600 Mg Tabcr) 600 mg PO Q12 [facility] Stop: 09/21/21 22:26 Last Admin: 08/23/21 10:31 Dose: 600 mg Documented by: Hydroxychloroquine Sulfate (Hydroxychloroquine Sulfate 200 Mg Tab) 200 mg PO HS [facility] Stop: 09/21/21 22:26 Last Admin: 08/23/21 00:44 Dose: 200 mg Documented by: Ceftriaxone Sodium 1,000 mg/ (Dextrose) 50 mls @ 100 mls/hr IV Q24H [facility]; Protocol Stop: 08/28/21 20:59 Insulin Aspart (Insulin Aspart Per Unit) 0 units SC ACHS [facility] Stop: 09/21/21 22:26 Last Admin: 08/23/21 12:34 Dose: Not Given Documented by: Insulin Glargine (Insulin Glargine Solostar 100 Units/Ml 3 Ml Pen) 0 - 8 units SC BID [facility]; Protocol Stop: 09/21/21 22:26 Last Admin: 08/23/21 09:00 Dose: Not Given Documented by: Latanoprost (Latanoprost 0.005% Op Soln 2.5 Ml Btl) 1 drops OP HS [facility] Stop: 09/21/21 22:26 Last Admin: 08/23/21 00:44 Dose: 1 drops Documented by: Magnesium Hydroxide (Magnesium Hydroxide Susp 30 Ml Udc) 30 ml PO Q12H PRN PRN Reason: Constipation Stop: 09/21/21 22:26 Metoprolol Succinate (Metoprolol Succ 50mg Ext Rel Tab) 50 mg PO DAILY [facility] Stop: 09/22/21 08:59 Last Admin: 08/23/21 11:38 Dose: 50 mg Documented by: Miscellaneous (Carbohydrates For Hypoglycemia ) 15 - 30 gm PO UD PRN PRN Reason: Hypoglycemia Protocol Stop: 09/21/21 22:26 Miscellaneous (Vesicare - Order Awaiting Action) 1 ea N/A QS [facility] Stop: 09/22/21 07:59 Last Admin: 08/23/21 16:42 Dose: Not Given Documented by: Montelukast Sodium (Montelukast Sodium 10 Mg Tablet) 10 mg PO HS [facility] Stop: 09/21/21 22:26 Last Admin: 08/23/21 00:44 Dose: 10 mg Documented by: Multivitamins/Minerals (Cerovite Adv Formula Tab) 1 tab PO QDL [facility] Stop: 09/22/21 11:29 Last Admin: 08/23/21 11:51 Dose: 1 tab Documented by: Mupirocin (Mupirocin 2% Oint 22 Gm Tube) 1 appln EXT BID [facility] Stop: 08/28/21 20:59 Nystatin (Nystatin Powder 15gm Btl) 1 appln EXT TID PRN PRN Reason: Rash Stop: 09/21/21 22:26 Pantoprazole Sodium (Pantoprazole 40 Mg Tab) [facility] Stop: 09/22/21 08:59 Last Admin: 08/23/21 10:30 Dose: 40 mg Documented by: Polyethylene Glycol (Polyethylene (Miralax) 17 Gm Pack) 17 gm PO DAILY PRN PRN Reason: Constipation Stop: 09/21/21 22:26 Prednisone (Prednisone 5 Mg Tab) 5 mg PO QAM [facility] Stop: 09/22/21 08:59 Last Admin: 08/23/21 10:30 Dose: 5 mg Documented by: Raspberry (Raspberry Syrup 5 Ml Udp) 5 ml PO DAILY [facility] Stop: 09/02/21 08:59 Last Admin: 08/23/21 12:45 Dose: 5 ml Documented by: Rosuvastatin Calcium (Rosuvastatin Calcium 10 Mg Tab) 10 mg PO QAM [facility] Stop: 09/22/21 08:59 Last Admin: 08/23/21 11:40 Dose: 10 mg Documented by: Thiamine HCl (Thiamine Hcl 50 Mg Tablet) 50 mg PO QAM [facility] Stop: 09/22/21 08:59 Last Admin: 08/23/21 11:40 Dose: 50 mg Documented by: Vancomycin HCl (Vancomycin Hcl 125 Mg/2.5ml Soln) 125 mg PO DAILY [facility] Stop: 09/22/21 08:59 Last Admin: 08/23/21 12:46 Dose: 125 mg Documented by: Vitamin D (Cholecalciferol 1,000 Units 25 Mcg Tab) 2,000 units PO QDL [facility] Stop: 09/22/21 11:29 Last Admin: 08/23/21 11:42 Dose: 2,000 units Documented by:
[2021-08-23] MEDS ORDERED: SODIUM CHLORIDE 0.9% 500 ML IV SCH (19:45)
[2021-08-23] MEDS: cefTRIAXone SODIUM 1,000 MG in DEXTROSE 5% 50 ML IV SCH (20:49)
[2021-08-23] MEDS: MUPIROCIN 2% OINT 22 GM TUBE EXT SCH (20:52)
[2021-08-24 05:59] LABS: Hematocrit (blood only) 31.9 % (37-47); Hemoglobin 10.9 g/dL (12.0-16.0); Mean Corpuscular Hemoglobin 30.3 pg (25-34); Mean Corpuscular Hgb Conc 34.2 g/dL (32-36); Mean Corpuscular Volume 88.6 fL (80-100); Mean Platelet Volume 9.2 fL (7.4-10.4); Platelet Count 196 K/uL (130-400); RDW Coefficient of Variation 14.1 % (11.5-14.5); RDW Standard Deviation 46.2 fL (36.4-46.3); White Blood Count 7.67 K/uL (4.8-10.8)
[2021-08-24 06:25] LABS: Calcium 8.9 mg/dl (8.5-10.1); Creatinine Clr Calc Pharmacy 24.2 ml/min; Est GFR (Non-African American) 34.5 ml/min; Potassium 4.2 mmol/L (3.5-5.1)
[2021-08-24] MEDS: VESICARE - ORDER AWAITING ACTION SCH ×4 (07:38→22:36)
[2021-08-24] MEDS: INSULIN ASPART PER UNIT SC SCH ×4 (07:47→21:24)
[2021-08-24] MEDS: INSULIN GLARGINE SOLOSTAR 100 UNITS/ML 3 ML PEN SC SCH ×2 (07:50→21:26)
[2021-08-24] MEDS: guaiFENesin 600 MG TABCR PO SCH ×2 (07:50→21:35)
[2021-08-24] MEDS: METOPROLOL SUCC 50MG EXT REL TAB PO SCH (07:51)
[2021-08-24] MEDS: FOLIC ACID 1 MG TAB PO SCH (07:51)
[2021-08-24] MEDS: VANCOMYCIN HCL 125 MG/2.5ML SOLN PO SCH (07:51)
[2021-08-24] MEDS: THIAMINE HCL 50 MG TABLET PO SCH (07:51)
[2021-08-24] MEDS: RASPBERRY SYRUP 5 ML UDP PO SCH (07:51)
[2021-08-24] MEDS: ROSUVASTATIN CALCIUM 10 MG TAB PO SCH (07:51)
[2021-08-24] MEDS: PANTOprazole 40 MG TAB PO SCH (07:52)
[2021-08-24] MEDS: predniSONE 5 MG TAB PO SCH (07:52)
[2021-08-24] MEDS: BENZONATATE 100 MG CAPSULE PO SCH ×3 (07:53→21:37)
[2021-08-24] MEDS: MUPIROCIN 2% OINT 22 GM TUBE EXT SCH ×2 (07:53→21:38)
[2021-08-24] MEDS: CHOLECALCIFEROL 1,000 UNITS 25 MCG TAB PO SCH (11:55)
[2021-08-24] MEDS: FLUTICASONE/VILANTEROL 100/25MCG 14 PUFFS/INHALER INH SCH (11:55)
[2021-08-24] MEDS: DULoxetine HCL 60 MG CAP PO SCH (11:55)
[2021-08-24] MEDS: CEROVITE ADV FORMULA TAB PO SCH (11:55)
--- NOTE | 2021-08-24 14:16 | Cardiology Progress Note ---
Date of Service August 24, 2021 Assessment & Plan (1) NSTEMI (non-ST elevated myocardial infarction): (2) Syncope: (3) Nontraumatic rectus hematoma: (4) UTI (urinary tract infection): Plan: Continue current cardiovascular medical therapies including aspirin, Toprol-XL, and rosuvastatin. IV heparin discontinued secondary to rectus sheath hematoma. She is not a candidate for cardiac intervention due to contraindications to anticoagulation. Continue conservative medical management. Monitor telemetry. History of syncope during illness in the past. No dysrhythmias recorded during hospitalization. Consider 7-14-day ZIO monitor in the outpatient setting. Admission and Anticipated Discharge Date Admission Date: August 22, 2021 Subjective Patient seen and examined at the bedside. Chart reviewed. Patient admitted with syncope and NSTEMI. She was initially managed medically with intravenous heparin, however, developed a rectus sheath hematoma. Anticoagulation discontinued. Echocardiogram demonstrating apical wall motion abnormality with moderate to severe LV systolic dysfunction, ejection fraction 35-39%. Currently, patient is resting comfortably. Denies chest discomfort or shortness of breath. Nursing reports intermittent confusion. Telemetry reveals sinus rhythm without sustained dysrhythmia. Hemoglobin has dropped from 12.4 to 10.9 g/dL. Review of Systems Review of Systems: All systems reviewed & are unremarkable except as noted in Subjective Physical Exam Constitutional: well developed and well nourished Respiratory: normal respiratory effort; no labored breathing and no retractions Auscultation: no crackles, no rales, no rhonchi and no wheezes Cardiovascular: Rate/Rhythm: regular rate and regular rhythm Heart Sounds: normal S1 and normal S2; no murmur Vessels: no JVD and no carotid bruit Extremities: no edema Gastrointestinal (Abdomen): Inspection/Auscultation: abdomen normal to inspection and normal bowel sounds; abdomen not distended and no abdominal edema Percussion/Palpation: abdomen soft; abdomen nontender and abdomen not rigid Neurologic: CN's II-XI intact bilaterally and moves all extremities; no focal motor deficits Motor/Sensory: no tremor Results & Data ([facility]) Vital Signs (Past 12 Hours) Vital Signs Temp Pulse Pulse Resp BP BP Pulse Ox 08/24/21 11:30 36.7 C 80 15 122/76 93 08/24/21 10:09 37.0 C 08/24/21 07:33 78 08/24/21 06:49 38.0 C H 77 18 131/75 96 08/24/21 04:14 36.7 C 84 20 149/76 H 96 (1) Syncope Syncope type: unspecified Qualified Code(s): R55 - Syncope and collapse
--- NOTE | 2021-08-24 15:24 | Hospitalist Progress Note ---
Date of Service August 24, 2021 Assessment & Plan (1) Syncope: Plan: She appears to have had a cardiac event with NSTEMI as evidenced by echo findings. However, suspect infection prompting syncope in this instance. N A carotid ultrasound reveals moderate calcified plaque in bilateral carotids without hemodynamically significant stenosis. Head CT reveals no acute intracranial hemorrhage or other intracranial process. Chest x-ray reveals no acute disease. PT/OT evaluation noted. Continue treatment for infections as outlined below. (2) NSTEMI (non-ST elevated myocardial infarction): Plan: Troponin elevation overnight was flat without rise. Resting echocardiogram revealed a new apical hypokinesis with findings compatible with ischemia/injury in a wraparound LAD coronary territory, or stress-induced cardiomyopathy. Based on these results treatment with unfractionated heparin was initiated on 08/22. However a CT of the abdomen pelvis had been performed in follow-up of a known prior renal mass and a new rectus sheath hematoma was found. Heparin was therefore discontinued. She denies any chest pain or shortness of breath today. (3) RSV infection: Plan: RSV infection, continue supportive care, droplet precautions. (4) Immunosuppressed status: Plan: Rheumatoid arthritis with a history of hydroxychloroquine and chronic prednisone use. Continue Plaquenil and prednisone now (5) Hyponatremia: Plan: Hyponatremia possibly secondary to poor p.o. intake in setting of recent infections. Also contributing to this may be electrolyte abnormality with evidence of hyponatremia sodium was 127 on admission, currently 129 today Get serum osm, uosm, Zheng and monitor (6) UTI (urinary tract infection): Plan: Continue Rocephin for now for Ecoli UTI (7) Visual hallucinations: Plan: Noted by family members and other providers. Though she is currently AOx1, knows her birthday and recognize at bedside, she does not appear to be delirious or hallucinating at all She did admit to chronic diplopia since the spring and difficulty ambulating as a result of this. Neurologist evaluation for this noted. Will need outpatient neurology follow up (8) CKD (chronic kidney disease), stage III: Plan: Currently at her baseline, avoid nephrotoxic agents. (9) Recurrent Clostridium difficile diarrhea: Plan: On chronic vancomycin therapy. Continue this now and beyond any new antibiotics that been started. (10) DVT prophylaxis: Plan: Heparin drip has been stopped in setting of hematoma, SCDs ordered Full code Admission and Anticipated Discharge Date Admission Date: August 22, 2021 Subjective 75-year-old female with a history of CHF on chronic vancomycin therapy, and rheumatoid arthritis on chronic prednisone therapy presented with syncope Work-up showed elevated troponins. Echo show new apical hypokinesis. Was initially given heparin drip however CT abdomen reviewed renal mass and new rectus sheath hematoma. And heparin drip was discontinued. Patient seen and examined this morning. Reports occasional dry cough which has been going on for a week, anorexia and weakness. Denies any fevers, chills, nausea vomiting. Denies abdominal pain Reports occasional frequency but no dysuria, hematuria. Physical Exam Constitutional: + well hydrated; no acute distress Eyes: PERRL, conjunctivae normal, anicteric sclerae ENMT: external ear and nose normal, oropharynx normal Respiratory: normal respiratory effort, lungs clear to auscultation Cardiovascular: RRR, S1-S2 Gastrointestinal (Abdomen): normal bowel sounds, soft, nontender, no hepatosplenomegaly Musculoskeletal: No pedal edema Neurologic: PERRL, EOMI, accommodation nl, no face palsy, no dysarthria Psychiatric: Alert and oriented to person only, cooperative Results & Data Results & Data ([facility]) Vital Signs (Past 12 Hours) Vital Signs Temp Pulse Pulse Resp BP BP Pulse Ox 08/24/21 11:30 36.7 C 80 15 122/76 93 08/24/21 10:09 37.0 C 08/24/21 07:33 78 08/24/21 06:49 38.0 C H 77 18 131/75 96 08/24/21 04:14 36.7 C 84 20 149/76 H 96 Laboratory Results Abnormal lab results 08/23/21 08/23/21 08/23/21 Range/Units 16:33 16:36 20:47 RBC (4.2-5.4) M/uL Hgb (12.0-16.0) g/dL Hct (37-47) % Sodium (136-145) mmol/L BUN (7-18) mg/dl Creatinine (0.6-1.2) mg/dl BUN/Creatinine Ratio (10-20) Glucose (70-99) mg/dl POC Glucose 192 H 148 H (70-99) mg/dl Nasal Screen MRSA (PCR) Positive A (Negative) 1208/24/21 08/24/21 Range/Units 05:39 05:39 07:18 RBC 3.60 L (4.2-5.4) M/uL Hgb 10.9 L (12.0-16.0) g/dL Hct 31.9 L (37-47) % Sodium 129 L (136-145) mmol/L BUN 31 H (7-18) mg/dl Creatinine 1.49 H (0.6-1.2) mg/dl BUN/Creatinine Ratio 21.0 H (10-20) Glucose 100 H (70-99) mg/dl POC Glucose 100 H (70-99) mg/dl Nasal Screen MRSA (PCR) (Negative) 08/24/21 Range/Units 11:20 RBC (4.2-5.4) M/uL Hgb (12.0-16.0) g/dL Hct (37-47) % Sodium (136-145) mmol/L BUN (7-18) mg/dl Creatinine (0.6-1.2) mg/dl BUN/Creatinine Ratio (10-20) Glucose (70-99) mg/dl POC Glucose 127 H (70-99) mg/dl Nasal Screen MRSA (PCR) (Negative)
--- NOTE | 2021-08-24 15:31 | Consultation Report ---
NEUROLOGY CONSULTATION NOTE DATE OF CONSULTATION: 08/24/2021. CHIEF COMPLAINT: Diplopia. HISTORY OF PRESENT ILLNESS: A 75-year-old female admitted on 08/22/2021 for visual hallucinations over the past 3 days including seeing her mother and having conversations as well as seeing animals on the ceiling. This is new. She does have a history of coronary artery disease, type 2 diabetes, history of chronic C. difficile, rheumatoid arthritis on chronic prednisone, and stage III kidney disease. She presented to the ED on 08/22/2021 after sustaining a syncopal episode prior to arrival. She had no prodrome prior to the event and endorse coughing, thought to be vasovagal or orthostatic. On arrival noted to have an elevated troponin, hyponatremia as well as found to have a urinary tract infection. The patient also had an elevated D-dimer. Cardiology was consulted and recommended starting heparin drip on admission. After admission, she appeared to have a cardiac event with ongoing NSTEMI as well as a possible infection. Head CT noncontrast showed no acute intracranial abnormality. Chest x-ray showed no acute disease. She was placed in droplet precautions as well as continued on supportive care for RSV infection. Hyponatremia was thought to be secondary to poor p.o. intake in the setting of recent infection. She was started on Rocephin for presumed urinary tract infection. She noted to the hospitalist team that she did suffer from chronic diplopia since the spring and has some difficulty ambulating. Neurology was consulted for further recommendations regarding the ongoing diplopia. ALLERGIES: METHOTREXATE, PENICILLIN, RANITIDINE. HOME MEDICATIONS: Tylenol, albuterol, aspirin, benzonatate, Centrum Silver vitamin, vitamin D, vitamin B12, Cymbalta, Flonase, folic acid, hydroxychloroquine, lisinopril, metoprolol, montelukast, Nystatin, prednisone 5 mg in the morning, risedronate, Crestor, VESIcare, thiamine, tramadol, vancomycin. PAST MEDICAL HISTORY: Asthma, chronic steroid use, CKD, COPD, depression, type 2 diabetes, dyslipidemia, gastroparesis, GERD, glaucoma, gout, heart disease, hypertension, migraines, NSTEMI, osteoarthritis, peripheral neuropathy, rheumatoid arthritis. PAST SURGICAL HISTORY: Cardiac catheterization, colonoscopy, EGD, hysterectomy, tooth extraction, removal of ovarian cyst, rotator cuff repair, total knee arthroplasty. FAMILY HISTORY: Pertinent for diabetes, heart disease, hypertension. SOCIAL HISTORY: Nonsmoker, no alcohol use. She is . Feels safe at home. REVIEW OF SYSTEMS: Negative except as noted above in the HPI. PHYSICAL EXAMINATION: VITAL SIGNS: Blood pressure 122/76, pulse is 80, respiratory rate 15, temperature is 36.7 degrees Celsius, oxygen saturations 93% on room air. Awake and alert. Pleasant. Mild right eye esotropia. No ptosis. Speech is clear. Eyes midline. EOMI. Tongue midline. DIAGNOSTIC TESTING AND LABORATORY VALUES: WBC 7.67, hemoglobin 10.9, platelet count 196. Sodium 129, potassium 4.2, chloride 99, carbon dioxide 24, BUN 31, creatinine 1.49, glucose 100. Hemoglobin A1c 6.4, calcium 8.9, AST 50, ALT 51, triglycerides 399. LDL is 34. TSH is 0.33. Nasal screen MRSA is positive for MRSA, negative hepatitis C. Urinalysis showed cloudy, 1+ leukocyte esterase, 10-30 wbc's, 10-20 epithelial cells, 4+ bacteria. Urine culture showed E. coli. IMAGING: CT abdomen and pelvis showed stable right renal lesion as described above, characteristic of a renal infarct. Interval development of large hematoma within the right rectus abdominis muscle. No acute intra-abdominal or pelvic abnormality on this limited noncontrast images. No acute findings. Carotid ultrasound showed moderate calcified plaque within the bilateral carotid bifurcations without hemodynamically significant stenosis. Head CT noncontrast showed no acute internal hemorrhage, evidence of territorial infarction or other acute intracranial disease process. 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 Noted by hospitalist team to have chronic ongoing diplopia since the Spring. Patient notes to me it has been going on for a long time. More frequent in the evening. Would recommend Neurology followup as an outpatient for further diagnostic testing. Differential diagnosis includes ocular myasthenia. Will need to arrange for myasthenia gravis antibodies as outpatient. The patient will certainly benefit from seeing Ophthalmology as an outpatient also as has histrory of cataracts.. For now, we will defer to treatment of acute infectious issues as well as metabolic abnormalities. Would recommend outpatient Neurology followup for further evaluation of diplopia. Job ID: [id number] BEST
[2021-08-24 19:38] LABS: BUN Creatinine Ratio 19.6 (10-20); Calcium 8.6 mg/dl (8.5-10.1); Creatinine Clr Calc Pharmacy 26.3 ml/min; Est GFR (African American) 44.2 ml/min; Est GFR (Non-African American) 38.2 ml/min; Potassium 4.3 mmol/L (3.5-5.1)
[2021-08-24] MEDS: MONTELUKAST SODIUM 10 MG TABLET PO SCH (21:34)
[2021-08-24] MEDS: ASPIRIN 81 MG ECTAB PO SCH (21:35)
[2021-08-24] MEDS: HYDROXYCHLOROQUINE SULFATE 200 MG TAB PO SCH (21:36)
[2021-08-24] MEDS: cefTRIAXone SODIUM 1,000 MG in DEXTROSE 5% 50 ML IV SCH (21:36)
[2021-08-24] MEDS: LATANOPROST 0.005% OP SOLN 2.5 ML BTL OP SCH (21:37)
[2021-08-25 05:32] LABS: Hematocrit (blood only) 32.6 % (37-47); Mean Corpuscular Hemoglobin 30.3 pg (25-34); Mean Corpuscular Hgb Conc 33.7 g/dL (32-36); Mean Corpuscular Volume 89.8 fL (80-100); Mean Platelet Volume 9.4 fL (7.4-10.4); Platelet Count 226 K/uL (130-400); RDW Coefficient of Variation 14.2 % (11.5-14.5); RDW Standard Deviation 46.7 fL (36.4-46.3); Red Blood Count 3.63 M/uL (4.2-5.4); White Blood Count 8.71 K/uL (4.8-10.8)
[2021-08-25 05:56] LABS: Calcium 9.1 mg/dl (8.5-10.1); Est GFR (African American) 51.9 ml/min; Est GFR (Non-African American) 44.8 ml/min; Potassium 3.8 mmol/L (3.5-5.1)
[2021-08-25] MEDS: INSULIN ASPART PER UNIT SC SCH ×4 (08:48→20:40)
[2021-08-25] MEDS: VESICARE - ORDER AWAITING ACTION SCH ×2 (08:48→14:32)
[2021-08-25] MEDS: RASPBERRY SYRUP 5 ML UDP PO SCH (09:32)
[2021-08-25] MEDS: VANCOMYCIN HCL 125 MG/2.5ML SOLN PO SCH (09:32)
[2021-08-25] MEDS: PANTOprazole 40 MG TAB PO SCH (09:33)
[2021-08-25] MEDS: ROSUVASTATIN CALCIUM 10 MG TAB PO SCH (09:33)
[2021-08-25] MEDS: METOPROLOL SUCC 50MG EXT REL TAB PO SCH (09:33)
[2021-08-25] MEDS: guaiFENesin 600 MG TABCR PO SCH ×2 (09:33→20:36)
[2021-08-25] MEDS: MUPIROCIN 2% OINT 22 GM TUBE EXT SCH ×2 (09:35→21:31)
[2021-08-25] MEDS: predniSONE 5 MG TAB PO SCH (09:35)
[2021-08-25] MEDS: BENZONATATE 100 MG CAPSULE PO SCH ×3 (09:36→20:39)
[2021-08-25] MEDS: FOLIC ACID 1 MG TAB PO SCH (09:36)
[2021-08-25] MEDS: THIAMINE HCL 50 MG TABLET PO SCH (09:40)
[2021-08-25] MEDS: INSULIN GLARGINE SOLOSTAR 100 UNITS/ML 3 ML PEN SC SCH ×2 (10:04→20:39)
[2021-08-25] MEDS: FLUTICASONE/VILANTEROL 100/25MCG 14 PUFFS/INHALER INH SCH (10:53)
[2021-08-25] MEDS: DULoxetine HCL 60 MG CAP PO SCH (10:53)
[2021-08-25] MEDS: CEROVITE ADV FORMULA TAB PO SCH (10:53)
[2021-08-25] MEDS: amLODIPine BESYLATE 5 MG TAB PO SCH (10:53)
[2021-08-25] MEDS: CHOLECALCIFEROL 1,000 UNITS 25 MCG TAB PO SCH (10:53)
--- NOTE | 2021-08-25 11:08 | Cardiology Progress Note ---
Date of Service August 25, 2021 Assessment & Plan (1) NSTEMI (non-ST elevated myocardial infarction): (2) Syncope: (3) Nontraumatic rectus hematoma: (4) UTI (urinary tract infection): Plan: Titrate Toprol-XL to 75 mg daily to improve blood pressure and heart rate control. Continue other cardiovascular medical therapies including aspirin, Toprol-XL, and rosuvastatin. IV heparin discontinued secondary to rectus sheath hematoma. She is not a candidate for cardiac intervention due to contraindications to anticoagulation. Continue conservative medical management. No dysrhythmias recorded during hospitalization. Monitor telemetry while hospitalized. Consider 7-14-day ZIO monitor in the outpatient setting. Admission and Anticipated Discharge Date Admission Date: August 22, 2021 Subjective Patient seen examined the bedside. Patient denies chest pain or shortness of breath. Nursing voices concern regarding possible aspiration and choking during her a.m. meal. Speech evaluation pending at this time. No orthopnea, PND, or edema. Telemetry reveals sinus rhythm average heart rate 80-90 bpm. Review of Systems Review of Systems: All systems reviewed & are unremarkable except as noted in Subjective Physical Exam Constitutional: well developed and well nourished Respiratory: normal respiratory effort; no labored breathing and no retra ctions Auscultation: no crackles, no rales, no rhonchi and no wheezes Cardiovascular: Rate/Rhythm: regular rate and regular rhythm Heart Sounds: normal S1 and normal S2; no murmur Vessels: no JVD and no carotid bruit Extremities: no edema Gastrointestinal (Abdomen): Inspection/Auscultation: abdomen normal to inspection and normal bowel sounds; abdomen not distended and no abdominal edema Percussion/Palpation: abdomen soft; abdomen nontender and abdomen not rigid Neurologic: CN's II-XI intact bilaterally and moves all extremities; no focal motor deficits Motor/Sensory: no tremor Results & Data ([facility]) Vital Signs (Past 12 Hours) Vital Signs Temp Pulse Pulse Resp BP Pulse Ox 08/25/21 07:32 36.8 C 99 H 20 143/89 H 91 08/24/21 23:37 79 (1) Syncope Syncope type: unspecified Qualified Code(s): R55 - Syncope and collapse
[2021-08-25] MEDS ORDERED: METOPROLOL SUCC 25MG EXT REL TAB PO ONE (12:00)
[2021-08-25] MEDS: NYSTATIN SUSP 500,000 U/5 ML UDC PO SCH ×3 (12:04→20:36)
--- NOTE | 2021-08-25 14:15 | Hospitalist Progress Note ---
Date of Service August 25, 2021 Assessment & Plan (1) Syncope: Plan: She appears to have had a cardiac event with NSTEMI as evidenced by echo findings. However, suspect infection prompting syncope in this instance. A carotid ultrasound reveals moderate calcified plaque in bilateral carotids without hemodynamically significant stenosis. Head CT reveals no acute intracranial hemorrhage or other intracranial process. Chest x-ray reveals no acute disease. PT/OT evaluation noted. Continue treatment for infections as outlined below. (2) NSTEMI (non-ST elevated myocardial infarction): Plan: Troponin elevation overnight was flat without rise. Resting echocardiogram revealed a new apical hypokinesis with findings compatible with ischemia/injury in a wraparound LAD coronary territory, or stress-induced cardiomyopathy. Based on these results treatment with unfractionated heparin was initiated on 08/22. However a CT of the abdomen pelvis had been performed in follow-up of a known prior renal mass and a new rectus sheath hematoma was found. Heparin was therefore discontinued. She denies any chest pain or shortness of breath today. Mathematical Engineer recommendation noted (3) RSV infection: Plan: RSV infection, continue supportive care, droplet precautions. (4) Immunosuppressed status: Plan: Rheumatoid arthritis with a history of hydroxychloroquine and chronic prednisone use. Continue Plaquenil and prednisone now (5) Hyponatremia: Plan: Hyponatremia Possibly multifactorial-poor oral intake and ?SIADH [based on serum osmolality urine urine osmolality] Encourage oral intake Translational Specialist recs appreciated (6) UTI (urinary tract infection): Plan: Continue Rocephin for now for Ecoli UTI to complete treatment (7) Visual hallucinations: Plan: Noted by family members and other providers. Neurologist evaluation for this noted. Will need outpatient neurology follow up (8) CKD (chronic kidney disease), stage III: Plan: Currently at her baseline, avoid nephrotoxic agents. (9) Recurrent Clostridium difficile diarrhea: Plan: On chronic vancomycin therapy. Continue this now and beyond any new antibiotics that been started. (10) DVT prophylaxis: Plan: Heparin drip has been stopped in setting of hematoma, SCDs ordered Full code Plan: Hypertension Started on amlodipine Mathematical Engineer increased toprol XL Admission and Anticipated Discharge Date Admission Date: August 22, 2021 Subjective 75-year-old female with a history of CHF on chronic vancomycin therapy, and rheumatoid arthritis on chronic prednisone therapy presented with syncope Work-up showed elevated troponins. Echo show new apical hypokinesis. Was initially given heparin drip however CT abdomen reviewed renal mass and new rectus sheath hematoma. And heparin drip was discontinued. Patient seen and examined this morning. Reports dry cough, sore throat, anorexia and weakness. Denies any fevers, chills, nausea, vomiting. Denies abdominal pain Denied frequency, urgency, dysuria, hematuria. Physical Exam Constitutional: + well hydrated; no acute distress Eyes: PERRL, conjunctivae normal, anicteric sclerae ENMT: Erythematous oropharynx Respiratory: normal respiratory effort, lungs clear to auscultation Cardiovascular: RRR S1 S2 Gastrointestinal (Abdomen): normal bowel sounds, soft, nontender, no hepatosplenomegaly Musculoskeletal: No pedal edema Neurologic: PERRL, EOMI, accommodation nl, no face palsy, no dysarthria Psychiatric: Aox2 (person and place) today, cooperative Results & Data Results & Data ([facility]) Vital Signs (Past 12 Hours) Vital Signs Temp Pulse Pulse Resp BP Pulse Ox 08/25/21 12:35 36.6 C 86 16 189/95 H 97 08/25/21 08:00 86 08/25/21 07:32 36.8 C 99 H 20 143/89 H 91 Laboratory Results Abnormal lab results 08/24/21 08/24/21 08/24/21 Range/Units 16:28 18:40 18:54 RBC (4.2-5.4) M/uL Hgb (12.0-16.0) g/dL Hct (37-47) % RDW Std Deviation (36.4-46.3) fL Sodium (136-145) mmol/L BUN (7-18) mg/dl Creatinine (0.6-1.2) mg/dl Glucose (70-99) mg/dl POC Glucose 221 H (70-99) mg/dl Osmolality 274 L (280-300) mOsm/kg Urine Osmolality 418 L (500-800) mOsm/kg 08/24/21 08/24/21 08/25/21 Range/Units 18:54 21:05 04:44 RBC 3.63 L (4.2-5.4) M/uL Hgb 11.0 L (12.0-16.0) g/dL Hct 32.6 L (37-47) % RDW Std Deviation 46.7 H (36.4-46.3) fL Sodium 128 L (136-145) mmol/L BUN 27 H (7-18) mg/dl Creatinine 1.37 H (0.6-1.2) mg/dl Glucose 157 H (70-99) mg/dl POC Glucose 120 H (70-99) mg/dl Osmolality (280-300) mOsm/kg Urine Osmolality (500-800) mOsm/kg 08/25/21 08/25/21 08/25/21 Range/Units 04:44 07:30 11:02 RBC (4.2-5.4) M/uL Hgb (12.0-16.0) g/dL Hct (37-47) % RDW Std Deviation (36.4-46.3) fL Sodium 129 L (136-145) mmol/L BUN 24 H (7-18) mg/dl Creatinine (0.6-1.2) mg/dl Glucose 102 H (70-99) mg/dl POC Glucose 120 H 174 H (70-99) mg/dl Osmolality (280-300) mOsm/kg Urine Osmolality (500-800) mOsm/kg
--- NOTE | 2021-08-25 14:27 | Nephrology Consultation ---
Date of Consultation August 25, 2021 Assessment & Plan (1) Hyponatremia: chronic (eg present > 48 hr) hyponatremia euvolemic to slightly volume depleted. her urine studies changed likely in response to NS administration -no prior hx of hyponatremia as OP; not on medications classically associated w/ hyponatremia as OP (though if she is truly taking Alleve; she is overall 2.1L positive on the admission and not volume overloaded on exam, taking in minimal amount po since arrival though this is improving >intial labs most c/w SIADH like picture, possibly from acute on chronic lung disease, low solute diet; mild hypovolemia is also possible potentially -strict I/O needed but for now would not limit fluid intake -encourage po intake, more proteins/protein shake -may yet need IVF but not yet -no indication for FR at this time -encourage po -daily bmp -maintain eukalemia -avoid thiazide diuretics; would also minimize/avoid loop diuretics for now; has had none this admission Care coordinated w/ Dr Cortez History of Present Illness Reason for Consultation: hyponatremia Requesting Physician: Dr Cortez Attending Physician: Amirah Cortez MD History of Present Illness 75 y/o F whom I"m asked to see for hyponatremia was admitted on 08/22 for NSTEMI after presenting with syncope. PMH includes HTN, CAD, interstitial lung disease, COPD, CKD3 baseline creatinine 1.2, gout, GERD, RA on chronic prednisone and plaquenil, hx of C diff on chronic po vanco, urinary incontinence; 08/19 dx of RSV. Pt fell at home while getting to bedside commode and hit her head; unresponsive per her for 3-5 min. There were also reports of 3-5 days of visual hallucinations prior to admission. She is being followed for syncope work up, NSTEMI, and UTI. NSTEMI for conservative mgt. she does tell me she's been taking nyquil and 3 alleve daily. Pt denies cough to me and denies sob; ongoing dysuria; no gross hematuria. no edema. no n/v. no f. tells me she's lost 133 lb since C diff dx. RN reports pt is hardly taking po since arrival; had speech eval d/t worries about cough w/ po and could hardly eat for that eval > noted to have red throat/tongue, ongoing cough, odynophagia. She is to get thrush tx. Presenting sNa 127, at 129 today w/ range from 126-130 this admission. Her presenting creatinine was 1.6; improved to 1.2 today w/ peak value 1.7 on 08/22. No diuretics this admission; on 08/23 had 500 mL NS; also on 08/22 had NS 1L. she had minimal po intake recorded yesterday or day before. Allergies Allergy/AdvReac Type Severity Reaction Status Date / Time methotrexate Allergy Intermediate RASH/PNEUMO Verified 08/22/21 16:42 NITIS Penicillins Allergy Intermediate hives Verified 08/22/21 16:42 ranitidine Allergy Intermediate rash Verified 08/22/21 12:10 Home Medications Medication Instructions Recorded Confirmed Type duloxetine 30 mg capsule,delayed 60 mg PO QDL 07/20/18 08/22/21 History release folic acid 1 mg tablet 1 mg PO QAM 07/20/18 08/22/21 History hydroxychloroquine 200 mg tablet 200 mg PO HS 07/20/18 08/22/21 History prednisone 5 mg tablet 5 mg PO QAM 07/20/18 08/22/21 History thiamine mononitrate (vit B1) 100 50 mg PO QAM 07/20/18 08/22/21 History mg tablet albuterol sulfate 90 mcg/actuation 2 puff INHALATION Q4 PRN 03/07/19 08/22/21 History aerosol inhaler (ProAir HFA) cholecalciferol (vitamin D3) 50 2,000 unit PO QDL 03/07/19 08/22/21 History mcg (2,000 unit) capsule (Vitamin D3) cyanocobalamin (vitamin B-12) 2,000 mcg PO 3XWK 03/07/19 08/22/21 History 1,000 mcg tablet (Vitamin B-12) nitroglycerin 0.4 mg sublingual 0.4 mg SUBLINGUAL UD 03/07/19 08/22/21 History tablet nystatin 100,000 unit/gram topical 1 applic TOPICAL TID PRN 03/07/19 08/22/21 History powder tramadol 50 mg tablet 50 mg PO BID PRN 03/07/19 08/22/21 History vit A 1,000 unit-C 200 mg-E 60 1 tab PO QDL 03/07/19 08/22/21 History unit-lutein 2 mg and minerals tablet (Ocuvite with Lutein) fluticasone furoate 100 1 inh INHALATION QDL 11/12/19 08/22/21 History mcg-vilanterol 25 mcg/dose inhalation powder multivit with 1 tab PO QDL 11/12/19 08/22/21 History atlcqkrg-rvpo-IP-lutein 8 mg iron-400 mcg-300 mcg tablet (Centrum Silver Women) rosuvastatin 10 mg tablet 10 mg PO QAM 11/12/19 08/22/21 History aspirin 81 mg tablet,delayed 81 mg PO HS 10/09/20 08/22/21 History release (Aspirin Low Dose) risedronate 35 mg tablet 35 mg PO WK 10/09/20 08/22/21 History menthol 0.44 %-zinc oxide 20.6 % 1 applic EXT BID #1 tube 10/13/20 08/22/21 Rx topical ointment (Calmoseptine) lisinopril 2.5 mg tablet 2.5 mg PO QAM 11/15/20 08/22/21 History montelukast 10 mg tablet 10 mg PO HS 11/15/20 08/22/21 History pantoprazole 40 mg tablet,delayed 40 mg PO QAM 11/15/20 08/22/21 History release latanoprost 0.005 % eye drops 1 drp OPHTHALMIC (EYE) HS 01/03/21 08/22/21 History benzonatate 100 mg capsule 100 mg PO TID PRN 08/19/21 08/22/21 History acetaminophen 650 mg 1,950 mg PO Q12H PRN 08/22/21 08/22/21 History tablet,extended release (Tylenol 8 Hour) metoprolol succinate 50 mg 50 mg PO DAILY 08/22/21 08/22/21 History tablet,extended release 24 hr solifenacin 10 mg tablet (Vesicare) 10 mg PO QDL 08/22/21 08/22/21 History vancomycin 125 mg capsule 125 mg PO DAILY 08/22/21 08/22/21 History Patient History Medical History Asthma inhalers prn Chronic steroid use prednisone daily CKD (chronic kidney disease), stage III COPD (chronic obstructive pulmonary disease) inhalers prn Depression DJD of right shoulder DM type 2 (diabetes mellitus, type 2) Dyslipidemia Gastroparesis GERD (gastroesophageal reflux disease) Glaucoma Gout H/O interstitial lung disease "drug induced- methotrexate " Heart disease HTN (hypertension) Migraines NSTEMI (non-ST elevated myocardial infarction) (08/06/13) Osteoarthritis Peripheral neuropathy Rheumatoid arthritis "on chronic steroids" Surgical History H/O cardiac catheterization "cath 07/2013- single vessel CAD involving apical segment LAD, medical management indicated" H/O colonoscopy History of esophagogastroduodenoscopy (EGD) History of hysterectomy History of tooth extraction all top teeth S/P removal of ovarian cyst S/P rotator cuff repair "right shoulder" S/P total knee arthroplasty "left knee" Family History Father Family history of diabetes mellitus Mother Heart disease Hypertension Other No family history of adverse response to anesthesia Social History Smoking Status: Never smoker Second Hand Exposure: No; Hx Alcohol Use: No Hx Substance Use: No Preferred Language: German Communication Ability: Effective Leave Specialist Required: No Beliefs That Will Affect Care: None marital status: Current Living Situation: Spouse Other Information That Helps Us Care for You: No Feels Safe at Home: Yes Safety Concerns: Feels Safe At This Time Assistive Devices: Walker Review of Systems Review of Systems: All systems reviewed & are unremarkable except as noted in HPI & below Physical Exam Constitutional: well developed and well nourished Eyes: EOM intact bilaterally ENMT: Ears: no external ear abnormality Nose: no external nose abnormality Mouth: + dry oral mucous membranes Neck: no nuchal rigidity Respiratory: normal respiratory effort and + paradoxical thoraco-abdominal movement Auscultation: + diminished lung sounds (markedly so) Cardiovascular: RRR, no murmur, no edema Gastrointestinal (Abdomen): Inspection/Auscultation: normal bowel sounds Percussion/Palpation: abdomen soft; abdomen nontender Musculoskeletal: Extremities: + abnormal strength (2 person assist to lean forward) Skin: no rashes, warm and dry Neurologic: cornejo, fluent speech, no tremor Psychiatric: Orientation: oriented to person and oriented to place Insight: + limited insight Results & Data ([facility]) Vital Signs (Past 12 Hours) Vital Signs Temp Pulse Pulse Resp BP Pulse Ox 08/25/21 12:35 36.6 C 86 16 189/95 H 97 08/25/21 08:00 86 08/25/21 07:32 36.8 C 99 H 20 143/89 H 91 Laboratory Results 08/25/21 04:44 08/25/21 04:44 UACM > 1+protein, LE, WBC 10-30; 10-20 epis, 4+ bacter uOsm 376, 418; Zheng 41, 20; sOsm 274 Diagnostic Findings cxr > no acute process
[2021-08-25] MEDS: cefTRIAXone SODIUM 1,000 MG in DEXTROSE 5% 50 ML IV SCH (20:35)
[2021-08-25] MEDS: HYDROXYCHLOROQUINE SULFATE 200 MG TAB PO SCH (20:37)
[2021-08-25] MEDS: ASPIRIN 81 MG ECTAB PO SCH (20:37)
[2021-08-25] MEDS: MONTELUKAST SODIUM 10 MG TABLET PO SCH (20:42)
--- NOTE | 2021-08-25 21:08 | Electrocardiogram Report ---
Test Reason : Blood Pressure : / mmHG Vent. Rate : 076 BPM Atrial Rate : 076 BPM P-R Int : 166 ms QRS Dur : 138 ms QT Int : 496 ms P-R-T Axes : -29 064 187 degrees QTc Int : 558 ms Normal sinus rhythm Right bundle branch block T wave abnormality, consider anterior ischemia Prolonged QT Abnormal ECG When compared with ECG of 22-AUG-2021 13:21, QRS axis Shifted left Criteria for Inferior infarct are no longer Present T wave inversion now evident in Inferior leads T wave inversion more evident in Lateral leads T wave inversion more evident in Anterior leads Confirmed by Pawan Mcgowan ([id number]) on 08/25/2021 9:07:51 PM Referred By: REFERRED SELF Confirmed By:Pawan Mcgowan
[2021-08-25] MEDS: LATANOPROST 0.005% OP SOLN 2.5 ML BTL OP SCH (22:00)
[2021-08-26] MEDS: VESICARE - ORDER AWAITING ACTION SCH ×3 (03:04→14:48)
[2021-08-26 05:29] LABS: BUN Creatinine Ratio 15.1 (10-20); Creatinine Clr Calc Pharmacy 32.7 ml/min; Est GFR (African American) 57.7 ml/min; Est GFR (Non-African American) 49.8 ml/min; Potassium 3.7 mmol/L (3.5-5.1)
[2021-08-26] MEDS: INSULIN ASPART PER UNIT SC SCH ×4 (08:13→20:50)
[2021-08-26] MEDS: NYSTATIN SUSP 500,000 U/5 ML UDC PO SCH ×4 (08:14→20:29)
[2021-08-26] MEDS: THIAMINE HCL 50 MG TABLET PO SCH (08:15)
[2021-08-26] MEDS: guaiFENesin 600 MG TABCR PO SCH (08:15)
[2021-08-26] MEDS: predniSONE 5 MG TAB PO SCH (08:15)
[2021-08-26] MEDS: RASPBERRY SYRUP 5 ML UDP PO SCH (08:16)
[2021-08-26] MEDS: FOLIC ACID 1 MG TAB PO SCH (08:16)
[2021-08-26] MEDS: METOPROLOL SUCC 25MG EXT REL TAB PO SCH (08:16)
[2021-08-26] MEDS: amLODIPine BESYLATE 5 MG TAB PO SCH (08:17)
[2021-08-26] MEDS: ROSUVASTATIN CALCIUM 10 MG TAB PO SCH (08:17)
[2021-08-26] MEDS: PANTOprazole 40 MG TAB PO SCH (08:17)
[2021-08-26] MEDS: CYANOCOBALAMIN 500 MCG TABLET (VITAMIN B-12) PO SCH (08:17)
[2021-08-26] MEDS: BENZONATATE 100 MG CAPSULE PO SCH ×3 (08:17→20:29)
[2021-08-26] MEDS: MUPIROCIN 2% OINT 22 GM TUBE EXT SCH ×2 (08:17→23:33)
[2021-08-26] MEDS: INSULIN GLARGINE SOLOSTAR 100 UNITS/ML 3 ML PEN SC SCH ×2 (08:18→20:48)
[2021-08-26] MEDS: VANCOMYCIN HCL 125 MG/2.5ML SOLN PO SCH (08:18)
--- NOTE | 2021-08-26 09:14 | Nephrology Progress Note ---
Date of Service August 26, 2021 Assessment & Plan (1) Hyponatremia: Plan: chronic (eg present > 48 hr) hyponatremia euvolemic to slightly volume depleted. her urine studies changed likely in response to NS administration -no prior hx of hyponatremia as OP; not on medications classically associated w/ hyponatremia as OP (though if she is truly taking Alleve; she remains overall 2.1L positive on the admission and not volume overloaded on exam, taking in minimal po since arrival >intial labs most c/w SIADH like picture, possibly from acute on chronic lung disease, low solute diet; mild hypovolemia is also possible potentially but less likely -strict I/O needed but for now would not limit fluid intake -encourage po intake, more proteins/protein shake -monitor/cont to treat odynophagia -no indication for FR at this time -- consistently takes < 1L po -daily bmp while in house; bmp w/in a week of hospital d/c at PCP f/u -maintain eukalemia -avoid thiazide diuretics; would also minimize/avoid loop diuretics for now; has had none this admission Will sign off; pls call if ?; no nephro f/u needed unless concerning hyponatremia persists after hospital d/c; historically this has not been a consistent issue Admission and Anticipated Discharge Date Admission Date: August 22, 2021 Subjective noo interval clinical events. took whole protein shake this am per RN; still grimacing w/ swallowing. denies sob, pain in abd or chest or musculoskeletal Review of Systems Review of Systems: All systems reviewed & are unremarkable except as noted in Subjective Physical Exam Constitutional: well developed and well nourished Eyes: EOM intact bilaterally ENMT: Ears: no external ear abnormality Nose: no external nose abnormality Mouth: + dry oral mucous membranes Neck: no nuchal rigidity Respiratory: normal respiratory effort, + cough and + paradoxical thoraco- abdominal movement Auscultation: + diminished lung sounds (markedly so) and + crackles (fine; BL) Cardiovascular: RRR, no murmur, no edema Gastrointestinal (Abdomen): Inspection/Auscultation: normal bowel sounds Percussion/Palpation: abdomen soft; abdomen nontender Musculoskeletal: Extremities: + abnormal strength (2 person assist to lean forward) Skin: no rashes, warm and dry Psychiatric: Orientation: oriented to person and oriented to place Insight: + limited insight Results & Data ([facility]) Vital Signs (Past 12 Hours) Vital Signs Temp Pulse Pulse Resp BP Pulse Ox 08/26/21 07:41 69 08/26/21 07:10 36.7 C 80 11 L 120/71 97 08/26/21 04:30 37 C 70 20 150/82 H 97 08/25/21 23:00 68 08/25/21 22:45 37.5 C 70 20 137/67 95 Laboratory Results 08/25/21 04:44 08/26/21 05:04
--- NOTE | 2021-08-26 11:14 | Cardiology Progress Note ---
Date of Service August 26, 2021 Assessment & Plan (1) NSTEMI (non-ST elevated myocardial infarction): (2) Syncope: (3) Nontraumatic rectus hematoma: (4) UTI (urinary tract infection): Plan: Continue toprol-XL to 75 mg daily in addition to other cardiovascular medical therapies including aspirin, and rosuvastatin. IV heparin discontinued secondary to rectus sheath hematoma. She is not a candidate for cardiac intervention due to contraindications to anticoagulation. Continue conservative medical management. Renal function has returned to baseline. LILI inhibitor held on discharge due to acute renal insufficiency. Amlodipine added during hospitalization. Recommend holding amlodipine. Restart lisinopril 2.5 mg daily. No dysrhythmias recorded during hospitalization. Monitor telemetry while hospitalized. Consider 7-14-day ZIO monitor in the outpatient setting. Admission and Anticipated Discharge Date Admission Date: August 22, 2021 Subjective Patient seen and examined the bedside. Denies chest pain or shortness of breath. Heart rate improved. Telemetry revealing sinus rhythm ranging from 60-70 bpm. No palpitations, lightheadedness, or dizziness. Speech and swallow eval performed yesterday. Oral thrush noted. Patient prescribed nystatin p.o. Review of Systems Review of Systems: All systems reviewed & are unremarkable except as noted in Subjective Physical Exam Constitutional: well developed and well nourished Respiratory: normal respiratory effort; no labored breathing and no retractions Auscultation: no crackles, no rales, no rhonchi and no wheezes Cardiovascular: Rate/Rhythm: regular rate and regular rhythm Heart Sounds: normal S1 and normal S2; no murmur Vessels: no JVD and no carotid bruit Extremities: no edema Gastrointestinal (Abdomen): Inspection/Auscultation: abdomen normal to inspection and normal bowel sounds; abdomen not distended and no abdominal edema Percussion/Palpation: abdomen soft; abdomen nontender and abdomen not rigid Neurologic: CN's II-XI intact bilaterally and moves all extremities; no focal motor deficits Motor/Sensory: no tremor Results & Data ([facility]) Vital Signs (Past 12 Hours) Vital Signs Temp Pulse Pulse Resp BP Pulse Ox 08/26/21 07:41 69 08/26/21 07:10 36.7 C 80 11 L 120/71 97 08/26/21 04:30 37 C 70 20 150/82 H 97 (1) Syncope Syncope type: unspecified Qualified Code(s): R55 - Syncope and collapse
[2021-08-26] MEDS: CEROVITE ADV FORMULA TAB PO SCH (12:01)
[2021-08-26] MEDS: CHOLECALCIFEROL 1,000 UNITS 25 MCG TAB PO SCH (12:01)
[2021-08-26] MEDS: DULoxetine HCL 60 MG CAP PO SCH (12:04)
[2021-08-26] MEDS: FLUTICASONE/VILANTEROL 100/25MCG 14 PUFFS/INHALER INH SCH (12:04)
[2021-08-26] MEDS ORDERED: guaiFENesin 600 MG TABCR PO PRN (17:05)
--- NOTE | 2021-08-26 17:11 | Hospitalist Progress Note ---
Date of Service August 26, 2021 Assessment & Plan (1) Syncope: Plan: Suspect infection prompting syncopal event She appears to have had a cardiac event with NSTEMI as evidenced by echo findings. A carotid ultrasound reveals moderate calcified plaque in bilateral carotids without hemodynamically significant stenosis. Head CT reveals no acute intracranial hemorrhage or other intracranial process. Chest x-ray reveals no acute disease. PT/OT evaluation noted and patient ok to return home. Continue treatment for infections as outlined below. (2) NSTEMI (non-ST elevated myocardial infarction): Plan: Troponin elevation overnight was flat without rise. Resting echocardiogram revealed a new apical hypokinesis with findings compatible with ischemia/injury in a wraparound LAD coronary territory, or stress-induced cardiomyopathy. Based on these results treatment with unfractionated heparin was initiated on 08/22. However a CT of the abdomen pelvis had been performed in follow-up of a known prior renal mass and a new rectus sheath hematoma was found. Heparin was therefore discontinued. She denies any chest pain or shortness of breath today. Cardiology recommended to continue Toprol-XL 70 mg daily in addition to other medical therapies including aspirin and rosuvastatin. She is not a candidate for cardiac intervention due to contraindication to anticoagulation Continue conservative medical management Amlodipine added during hospitalization, this was held and lisinopril 2.5 mg daily was restarted. No dysrhythmias recorded during hospital stay Consider 7 to 14-day Zio patch monitor in the outpatient setting (3) RSV infection: Plan: RSV infection, continue supportive care, droplet precautions. Patient notes the cough is improved. (4) Immunosuppressed status: Plan: Rheumatoid arthritis with a history of hydroxychloroquine and chronic prednisone use. Continue Plaquenil and prednisone now (5) Hyponatremia: Plan: Hyponatremia Possibly multifactorial-poor oral intake and ?SIADH [based on serum osmolality urine urine osmolality] No prior history of hyponatremia as outpatient SIADH picture likely from acute on chronic lung disease, low solute diet, mild hypovolemia Encourage oral intake, especially proteins and protein shakes Continue thrush and monitor for any odynophagia No indication for fluid restriction at this time as she consistently takes in less than 1 L by mouth daily Avoid thiazide diuretics, would also minimize/avoid loop diuretics for now No nephrology follow-up needed as outpatient. Follow-up with PCP on discharge (6) UTI (urinary tract infection): Plan: Continue Rocephin for now for Ecoli UTI to complete treatment (7) Thrush, oral: Plan: Nystatin (8) Visual hallucinations: Plan: Noted by family members and other providers. Neurologist evaluation for this noted. Will need outpatient neurology follow up (9) CKD (chronic kidney disease), stage III: Plan: Currently at her baseline, avoid nephrotoxic agents. (10) Recurrent Clostridium difficile diarrhea: Plan: On chronic vancomycin therapy. Continue this now and beyond any new antibiotics that been started. (11) DVT prophylaxis: Plan: SCDs ordered Full Code Dispo-to home in am. Belkis Seymour [facility] and Anticipated Discharge Date Admission Date: August 22, 2021 Subjective 75 yo F admitted for syncope patient feels well today cough is improved denies fevers, chills, CP, SOB tolerating food feels her thrush is improved. nurse reports she is happy with her progress today notes a decrease in hallucinations (patient is oriented) physically capable wtih progress today. Review of Systems Review of Systems: All systems were reviewed and negative except as indicated above. Physical Exam Physical Exam: CONSTITUTIONAL: WNWD, vitals as above, generally well- appearing, NAD EYES: normal conjunctivae, no scleral icterus ENT: external ear and nose normal, MMM, decayed lower dentition. NECK: trachea midline RESPIRATORY: clear to auscultation bilaterally, no crackles, rales or wheezes, normal respiratory effort CARDIOVASCULAR: regular rate and rhythm, S1 and 2 heard without murmurs, gallops or rubs, no JVD, no peripheral edema CHEST: inspection of chest was normal GASTROINTESTINAL: soft, nontender, ND, no guarding MUSCULOSKELETAL: strength 5/5 throughout, head is normocephalic and atraumatic, neck supple, normal palpation of chest wall without tenderness SKIN: warm and dry NEUROLOGIC: CN 2-12 grossly intact, normal cognition, normal speech, no tremor PSYCHIATRIC: alert cooperative and oriented to person, place and time. Results & Data Results & Data ([facility]) Vital Signs (Past 12 Hours) Vital Signs Temp Pulse Pulse Resp BP Pulse Ox 08/26/21 16:23 37.1 C 68 16 146/71 H 94 08/26/21 11:09 37.0 C 75 21 126/64 96 08/26/21 07:41 69 08/26/21 07:10 36.7 C 80 11 L 120/71 97 Laboratory Results [facility] 08/26/21 05:04 Sodium 132 L Potassium 3.7 Chloride 99 Carbon Dioxide 24 BUN 17 Creatinine 1.10 Glucose 89 Calcium 9.0 Medications Administered Current Inpatient Medications Acetaminophen (Acetaminophen 325 Mg Tab) 650 mg PO Q4H PRN PRN Reason: Pain or Fever Stop: 09/21/21 22:26 Al Hydrox/Mg Hydrox/Simethicone (Aluminum/Magnesium Susp 30 Ml Udc) 15 ml PO Q4H PRN PRN Reason: Dyspepsia Stop: 09/21/21 22:26 Albuterol (Albuterol Hfa 8 Gm Inhaler) 2 puffs INH Q4 PRN PRN Reason: Shortness Of Breath Stop: 09/21/21 23:23 Albuterol (Albut/Ipratrop 3mg/0.5mg Neb 3 Ml Vial) 3 ml NEB QIDR PRN PRN Reason: Shortness Of Breath Or Wheezing Stop: 09/21/21 22:26 Aspirin (Aspirin 81 Mg Ectab) 81 mg PO HS [facility] Stop: 09/21/21 22:26 Last Admin: 08/25/21 20:37 Dose: 81 mg Documented by: Benzonatate (Benzonatate 100 Mg Capsule) 100 mg PO TID [facility] Stop: 09/21/21 22:26 Last Admin: 08/26/21 14:48 Dose: 100 mg Documented by: Cyanocobalamin (Cyanocobalamin 500 Mcg Tablet (Vitamin B-12)) 2,000 mcg PO MoWeFr@0900 [facility] Stop: 09/22/21 08:59 Last Admin: 08/26/21 08:17 Dose: 2,000 mcg Documented by: Dextrose (Dextrose 50% 50 Ml Syringe) 25 - 50 ml IV UD PRN; Protocol PRN Reason: Hypoglycemia Protocol Stop: 09/21/21 22:26 Duloxetine HCl (Duloxetine Hcl 60 Mg Cap) 60 mg PO QDL [facility] Stop: 09/22/21 11:29 Last Admin: 08/26/21 12:04 Dose: 60 mg Documented by: Fluticasone/Vilanterol (Fluticasone/Vilanterol 100/25mcg 14 Puffs/Inhaler) 1 puffs INH QDL [facility] Stop: 09/22/21 11:29 Last Admin: 08/26/21 12:04 Dose: 1 puffs Documented by: Folic Acid (Folic Acid 1 Mg Tab) 1 mg PO QAM [facility] Stop: 09/22/21 08:59 Last Admin: 08/26/21 08:16 Dose: 1 mg Documented by: Glucagon (Glucagon For Inj 1 Mg Vial) 1 mg SQ UD PRN; Protocol PRN Reason: Hypoglycemia Protocol Stop: 09/21/21 22:26 Glucose (Glucose 10 Tabs/Tube) 4 - 8 tabs PO UD PRN; Protocol PRN Reason: Hypoglycemia Protocol Stop: 09/21/21 22:26 Glucose (Glucose 40% Gel 15 Gm Tube) 15 - 30 gm PO UD PRN; Protocol PRN Reason: Hypoglycemia Protocol Stop: 09/21/21 22:26 Guaifenesin (Guaifenesin 600 Mg Tabcr) 600 mg PO Q12 PRN PRN Reason: congestion Stop: 09/21/21 22:26 Hydroxychloroquine Sulfate (Hydroxychloroquine Sulfate 200 Mg Tab) 200 mg PO HS [facility] Stop: 09/21/21 22:26 Last Admin: 08/25/21 20:37 Dose: 200 mg Documented by: Insulin Aspart (Insulin Aspart Per Unit) 0 units SC ACHS [facility] Stop: 09/21/21 22:26 Last Admin: 08/26/21 12:03 Dose: 2 units Documented by: Insulin Glargine (Insulin Glargine Solostar 100 Units/Ml 3 Ml Pen) 0 - 8 units SC BID [facility]; Protocol Stop: 09/21/21 22:26 Last Admin: 08/26/21 08:18 Dose: Not Given Documented by: Latanoprost (Latanoprost 0.005% Op Soln 2.5 Ml Btl) 1 drops OP HS [facility] Stop: 09/21/21 22:26 Last Admin: 08/25/21 22:00 Dose: 1 drops Documented by: Lisinopril (Lisinopril 2.5 Mg Tab) 2.5 mg PO QAM [facility] Stop: 09/26/21 08:59 Magnesium Hydroxide (Magnesium Hydroxide Susp 30 Ml Udc) 30 ml PO Q12H PRN PRN Reason: Constipation Stop: 09/21/21 22:26 Metoprolol Succinate (Metoprolol Succ 25mg Ext Rel Tab) 75 mg PO DAILY [facility] Stop: 09/25/21 08:59 Last Admin: 08/26/21 08:16 Dose: 75 mg Documented by: Miscellaneous (Carbohydrates For Hypoglycemia ) 15 - 30 gm PO UD PRN PRN Reason: Hypoglycemia Protocol Stop: 09/21/21 22:26 Miscellaneous (Vesicare - Order Awaiting Action) 1 ea N/A QS [facility] Stop: 09/22/21 07:59 Last Admin: 08/26/21 14:48 Dose: Not Given Documented by: Montelukast Sodium (Montelukast Sodium 10 Mg Tablet) 10 mg PO HS [facility] Stop: 09/21/21 22:26 Last Admin: 08/25/21 20:42 Dose: 10 mg Documented by: Multivitamins/Minerals (Cerovite Adv Formula Tab) 1 tab PO QDL [facility] Stop: 09/22/21 11:29 Last Admin: 08/26/21 12:01 Dose: 1 tab Documented by: Mupirocin (Mupirocin 2% Oint 22 Gm Tube) 1 appln EXT BID [facility] Stop: 08/28/21 20:59 Last Admin: 08/26/21 08:17 Dose: 1 appln Documented by: Nitrofurantoin Macrocrystals (Nitrofurantoin Monohydrate 100 Mg Cap) 100 mg PO BID [facility] Stop: 08/31/21 20:59 Nystatin (Nystatin Powder 15gm Btl) 1 appln EXT TID PRN PRN Reason: Rash Stop: 09/21/21 22:26 Nystatin (Nystatin Susp 500,000 U/5 Ml Udc) 5 ml PO QID [facility] Stop: 09/24/21 12:59 Last Admin: 08/26/21 12:01 Dose: 5 ml Documented by: Pantoprazole Sodium (Pantoprazole 40 Mg Tab) 40 mg PO QAM [facility] Stop: 09/22/21 08:59 Last Admin: 08/26/21 08:17 Dose: 40 mg Documented by: Polyethylene Glycol (Polyethylene (Miralax) 17 Gm Pack) 17 gm PO DAILY PRN PRN Reason: Constipation Stop: 09/21/21 22:26 Prednisone (Prednisone 5 Mg Tab) 5 mg PO QAM [facility] Stop: 09/22/21 08:59 Last Admin: 08/26/21 08:15 Dose: 5 mg Documented by: Raspberry (Raspberry Syrup 5 Ml Udp) 5 ml PO DAILY [facility] Stop: 09/02/21 08:59 Last Admin: 08/26/21 08:16 Dose: 5 ml Documented by: Rosuvastatin Calcium (Rosuvastatin Calcium 10 Mg Tab) 10 mg PO QAM [facility] Stop: 09/22/21 08:59 Last Admin: 08/26/21 08:17 Dose: 10 mg Documented by: Thiamine HCl (Thiamine Hcl 50 Mg Tablet) 50 mg PO QAM [facility] Stop: 09/22/21 08:59 Last Admin: 08/26/21 08:15 Dose: 50 mg Documented by: Vancomycin HCl (Vancomycin Hcl 125 Mg/2.5ml Soln) 125 mg PO DAILY [facility] Stop: 09/22/21 08:59 Last Admin: 08/26/21 08:18 Dose: 125 mg Documented by: Vitamin D (Cholecalciferol 1,000 Units 25 Mcg Tab) 2,000 units PO QDL [facility] Stop: 09/22/21 11:29 Last Admin: 08/26/21 12:01 Dose: 2,000 units Documented by:
[2021-08-26] MEDS: LATANOPROST 0.005% OP SOLN 2.5 ML BTL OP SCH (20:24)
[2021-08-26] MEDS: NITROFURANTOIN MONOHYDRATE 100 MG CAP PO SCH (20:25)
[2021-08-26] MEDS: MONTELUKAST SODIUM 10 MG TABLET PO SCH (20:25)
[2021-08-26] MEDS: ASPIRIN 81 MG ECTAB PO SCH (20:29)
[2021-08-26] MEDS: HYDROXYCHLOROQUINE SULFATE 200 MG TAB PO SCH (20:29)
[2021-08-27] MEDS: VESICARE - ORDER AWAITING ACTION SCH ×2 (00:58→08:54)
[2021-08-27] MEDS: INSULIN ASPART PER UNIT SC SCH ×2 (08:52→12:44)
[2021-08-27] MEDS: FOLIC ACID 1 MG TAB PO SCH (08:56)
[2021-08-27] MEDS: ROSUVASTATIN CALCIUM 10 MG TAB PO SCH (08:57)
[2021-08-27] MEDS: RASPBERRY SYRUP 5 ML UDP PO SCH (08:58)
[2021-08-27] MEDS: BENZONATATE 100 MG CAPSULE PO SCH ×2 (08:58→14:26)
[2021-08-27] MEDS: PANTOprazole 40 MG TAB PO SCH (08:59)
[2021-08-27] MEDS: THIAMINE HCL 50 MG TABLET PO SCH (08:59)
[2021-08-27] MEDS: METOPROLOL SUCC 25MG EXT REL TAB PO SCH (08:59)
[2021-08-27] MEDS ORDERED: lisinopril 2.5 MG TAB PO SCH (09:00)
[2021-08-27] MEDS ORDERED: amLODIPine BESYLATE 5 MG TAB PO SCH (09:00)
[2021-08-27] MEDS: NYSTATIN SUSP 500,000 U/5 ML UDC PO SCH ×2 (09:01→14:27)
[2021-08-27] MEDS: predniSONE 5 MG TAB PO SCH (09:01)
[2021-08-27] MEDS: INSULIN GLARGINE SOLOSTAR 100 UNITS/ML 3 ML PEN SC SCH (09:04)
[2021-08-27] MEDS: NITROFURANTOIN MONOHYDRATE 100 MG CAP PO SCH (10:41)
[2021-08-27] MEDS: MUPIROCIN 2% OINT 22 GM TUBE EXT SCH (10:42)
[2021-08-27] MEDS: VANCOMYCIN HCL 125 MG/2.5ML SOLN PO SCH (10:43)
[2021-08-27] MEDS: CHOLECALCIFEROL 1,000 UNITS 25 MCG TAB PO SCH (10:44)
[2021-08-27] MEDS: CEROVITE ADV FORMULA TAB PO SCH (10:44)
[2021-08-27] MEDS: DULoxetine HCL 60 MG CAP PO SCH (10:44)
--- NOTE | 2021-08-27 11:22 | Cardiology Progress Note ---
Date of Service August 27, 2021 Assessment & Plan (1) NSTEMI (non-ST elevated myocardial infarction): (2) Syncope: (3) Nontraumatic rectus hematoma: (4) UTI (urinary tract infection): Plan: Continue toprol-XL to 75 mg daily, lisinopril 2.5 mg daily, rosuvastatin and aspirin as previously ordered. IV heparin discontinued secondary to rectus sheath hematoma. She is not a candidate for cardiac intervention due to contraindications to anticoagulation. Continue conservative medical management. Admission and Anticipated Discharge Date Admission Date: August 22, 2021 Subjective Patient seen and examined the bedside. Amlodipine discontinued and lisinopril restarted yesterday. Blood pressure controlled. Continues to cough without sputum production. No orthopnea, PND, or edema. Denies palpitations, lightheadedness, or dizziness. Review of Systems Review of Systems: All systems reviewed & are unremarkable except as noted in Subjective Physical Exam Constitutional: well developed and well nourished Respiratory: normal respiratory effort; no labored breathing and no retractions Auscultation: no crackles, no rales, no rhonchi and no wheezes Cardiovascular: Rate/Rhythm: regular rate and regular rhythm Heart Sounds: normal S1 and normal S2; no murmur Vessels: no JVD and no carotid bruit Extremities: no edema Gastrointestinal (Abdomen): Inspection/Auscultation: abdomen normal to inspection and normal bowel sounds; abdomen not distended and no abdominal edema Percussion/Palpation: abdomen soft; abdomen nontender and abdomen not rigid Neurologic: CN's II-XI intact bilaterally and moves all extremities; no focal motor deficits Motor/Sensory: no tremor Results & Data ([facility]) Vital Signs (Past 12 Hours) Vital Signs Temp Pulse Resp BP Pulse Ox 08/27/21 07:32 36.6 C 73 16 122/62 99 (1) Syncope Syncope type: unspecified Qualified Code(s): R55 - Syncope and collapse
[2021-08-27] MEDS: FLUTICASONE/VILANTEROL 100/25MCG 14 PUFFS/INHALER INH SCH (14:25)
--- NOTE | 2021-08-27 22:28 | Discharge Summary ---
Date of Service August 27, 2021 Admission HPI Per Admitting Provider This is a 75-year-old female who has significant past medical history of CAD, HTN, HLD, T2DM, history of C. difficile on chronic vancomycin therapy, history of ILD, COPD, rheumatoid arthritis on chronic prednisone therapy, CKD stage III, gouty arthropathy, GERD who presents to ED after sustaining a syncopal episode prior to arrival. is at bedside. Patient states that she got out of bed this morning and there is a bedside commode next to her bed. When she went to get on the bedside commode her feet slipped out from under her and she fell on her bottom, hitting her head on the bedside commode. Her heard a thud and came running and found her on the floor. When he tried to get her up she was unresponsive for approximately 3 to 5 minutes. She was breathing, but he did not try to take her pulse. She does not recall passing out, but recalls coming to. Prior to passing out she denied any diaphoresis, lightheadedness, dizziness, chest pain, shortness of breath or palpitations. She did have a coughing episode prior to falling off of the bedside commode. Of significance she was recently seen in ER on 08/19 and was diagnosed with RSV. She was prescribed 40 mg of prednisone for 5 days and discharged to home. states that she was running a fever of 100-101 prior to coming to the ER on 08/19. She otherwise has been doing okay since discharge from ER other than weakness. She does have a productive cough with yellow sputum. She denies any chills or sweats, lightheadedness, dizziness, chest pain, shortness of breath, palpitations, nausea, vomiting, diarrhea, dysuria, increased urgency or frequency with urination. She does have chronic incontinence and follows with Dr. Roach for this. She did take her morning medications. also notes over the past 3 to 5 days he has noted her to be hallucinating. She has been seeing and talking to her mother as well as seeing rabbits and cats on the ceiling. Patient is aware of seeing these objects, but it is real to her. In ED patient remained hemodynamically stable. She did not require supplemental oxygen. Chest x-ray was negative for acute abnormality. She did have mild elevation in white blood cell count at 14.12k, sodium low at 127, chloride 95, BUN 28, creatinine 1.57, troponin 0.153, CK 213. Her head CT was negative for acute abnormality. Her EKG was unchanged from 08/19 and did reveal a sinus bra dycardia with a right bundle branch block. However in comparison from EKG from November 2019 there is evidence of new Q waves in inferior lateral leads. She did receive full-strength aspirin in ED. Admission Exam Per Admitting Provider Constitutional: Elderly, female, appears older than stated age, answers questions appropriately, soft-spoken, vitals as above, NAD, sitting up in bed, pleasant, conversing easily Head: Normocephalic, Atraumatic Eyes: PERRL, conjunctivae normal, anicteric sclerae ENMT: external ear and nose normal, oropharynx normal, poor dentition Neck: trachea midline, no thyromegaly normal visual inspection Respiratory: Harsh cough noted on exam, normal respiratory effort, lungs clear to auscultation, no wheeze, rales, rhonchi. Normal insp/exp effort, no accessory muscle use Cardiovascular: RRR, no murmur, no edema Vessels: no JVD or carotid bruit Chest: normal inspection of chest Abdomen: normal bowel sounds, soft, nontender, no hepatosplenomegaly Musculoskeletal: no cyanosis or clubbing, extremities motor strength 5/5 Skin: no rashes, warm and dry normal turgor Neurologic: PERRL, EOMI, accommodation nl, no face palsy, no dysarthria CN's II-XI intact bilaterally and moves all extremities Psychiatric: A+Ox3, euthymic affect Lymphatic: no cervical or axillary lymphadenopathy : deferred Principal Diagnosis ANDRESSA-resolved Discharge Exam CONSTITUTIONAL: WNWD, vitals as above, generally well-appearing, NAD EYES: normal conjunctivae, no scleral icterus ENT: external ear and nose normal, MMM, decayed lower dentition. NECK: trachea midline RESPIRATORY: clear to auscultation bilaterally, no crackles, rales or wheezes, normal respiratory effort CARDIOVASCULAR: regular rate and rhythm, S1 and 2 heard without murmurs, gallops or rubs, no JVD, no peripheral edema CHEST: inspection of chest was normal GASTROINTESTINAL: soft, nontender, ND, no guarding MUSCULOSKELETAL: strength 5/5 throughout, head is normocephalic and atraumatic, neck supple, normal palpation of chest wall without tenderness SKIN: warm and dry NEUROLOGIC: CN 2-12 grossly intact, normal cognition, normal speech, no tremor PSYCHIATRIC: alert cooperative and oriented to person, place and time. Discharge Data Allergies Allergy/AdvReac Type Severity Reaction Status Date / Time methotrexate Allergy Intermediate RASH/PNEUMO Verified 08/22/21 16:42 NITIS Penicillins Allergy Intermediate hives Verified 08/22/21 16:42 ranitidine Allergy Intermediate rash Verified 08/22/21 12:10 Consultations 08/22/21 12:23 ED Decision to Admit Stat 08/22/21 12:44 Consult Cardiology Routine 08/23/21 22:00 Consult Neurology Routine 08/25/21 08:11 Consult Nephrology Routine Ordered Studies 08/22/21 11:06 CT head/brain wo con Stat 08/22/21 14:06 US carotid doppler BI Routine 08/22/21 17:26 CT abd pelvis wo con Stat Hospital Course (1) Syncope: Suspect infection prompting syncopal event She appears to have had a cardiac event with NSTEMI as evidenced by echo findings. A carotid ultrasound reveals moderate calcified plaque in bilateral carotids without hemodynamically significant stenosis. Head CT reveals no acute intracranial hemorrhage or other intracranial process. Chest x-ray reveals no acute disease. PT/OT evaluation noted and patient ok to return home. Continue treatment for infections as outlined below. (2) NSTEMI (non-ST elevated myocardial infarction): Troponin elevation overnight was flat without rise. Resting echocardiogram revealed a new apical hypokinesis with findings compatible with ischemia/injury in a wraparound LAD coronary territory, or stress-induced cardiomyopathy. Based on these results treatment with unfractionated heparin was initiated on 08/22. However a CT of the abdomen pelvis had been performed in follow-up of a known prior renal mass and a new rectus sheath hematoma was found. Heparin was therefore discontinued. She denies any chest pain or shortness of breath today. Cardiology recommended to continue Toprol-XL 75 mg daily in addition to other medical therapies including aspirin and rosuvastatin. She is not a candidate for cardiac intervention due to contraindication to anticoagulation Continue conservative medical management Amlodipine added during hospitalization, this was held and lisinopril 2.5 mg daily was restarted. No dysrhythmias recorded during hospital stay Consider 7 to 14-day Zio patch monitor in the outpatient setting (3) RSV infection: RSV infection, continue supportive care, droplet precautions. Patient notes the cough is improved. (4) Immunosuppressed status: Rheumatoid arthritis with a history of hydroxychloroquine and chronic prednisone use. Continue Plaquenil and prednisone now (5) Hyponatremia: Hyponatremia Possibly multifactorial-poor oral intake and ?SIADH [based on serum osmolality urine urine osmolality] No prior history of hyponatremia as outpatient SIADH picture likely from acute on chronic lung disease, low solute diet, mild hypovolemia Encourage oral intake, especially proteins and protein shakes Continue thrush and monitor for any odynophagia No indication for fluid restriction at this time as she consistently takes in less than 1 L by mouth daily Avoid thiazide diuretics, would also minimize/avoid loop diuretics for now No nephrology follow-up needed as outpatient. Follow-up with PCP on discharge (6) UTI (urinary tract infection): Continue Rocephin for now for Ecoli UTI to complete treatment (7) Thrush, oral: Nystatin (8) Visual hallucinations: Noted by family members and other providers. Neurologist evaluation for this noted. Improved prior to discharge and likely related to infections +/- hospitalization Will need outpatient neurology follow up (9) CKD (chronic kidney disease), stage III: Currently at her baseline, avoid nephrotoxic agents. (10) Recurrent Clostridium difficile diarrhea: On chronic vancomycin therapy. Continue this now and beyond any new antibiotics that been started. (11) Acute renal failure: Total Time Total Time Spent Total Time Spent (In Minutes): 60 Discharge Plan Discharge Items Patient Disposition: Home - Home Health Services Reason For Visit: SYNCOPE Discharge Diagnosis: Syncope NSTEMI RSV infection Immunosuppressed status Oral thrush Hyponatremia Visual hallucinations Recurrent C. difficile diarrhea Condition on Discharge: Good Activity: Resume your previous activity Non-emergency contact: Primary Care Provider Call non-emergency contact if: you have any medication questions Follow-up/Referrals: Leni Moyer DO [Primary Care Provider] - 09/03/21 11:10 am (Date & Time 09/03/2021 11:10 AM Provider Leni Moyer DO Department [facility] ) Diet: Regular Addtl Attending Provider Instructions: Please take all medications as instructed on discharge as below. Please note changes in Toprol per cardiology recommendations. You are being given the remaining 7-day course of nystatin swish for treatment of thrush. You are also being given an additional 3 days of antibiotics for treatment of your urinary tract infection. It is recommended that you follow-up with your primary care doctor within 1 week of discharge to ensure complete resolution of symptoms and that you are doing well on all medications. It is important that you continue your chronic oral vancomycin therapy beyond any additional antibiotic therapy above. At this visit consider 7 to 14-day event monitor in the outpatient setting. Notably there were no dysrhythmias recorded during her hospitalization. Additionally, a follow-up with [facility] neurology may be entertained. You were evaluated by Dr. Churchill while in the hospital for ongoing double vision issues. Differential diagnosis includes ocular myasthenia, and an arrangement for myasthenia gravis antibodies as outpatient should be performed by primary care. You will certainly benefit from seeing ophthalmology as an outpatient, also. It was a pleasure taking care of you! Please call if you have any questions or problems. You can reach a [facility] hospitalist on duty at [facility] 24 hours a day by calling [phone]. Take care of yourself. Belkis Seymour, [place] [employer] [facility] Pending Studies at Discharge: No Stand-Alone Forms: My [facility], Smoking Cessation Medications and DC Order Prescriptions: New nitrofurantoin monohyd/m-cryst 100 mg Capsule 100 mg PO BID Qty: 8 RF: 0 nystatin 100,000 unit/mL Suspension 5 ml PO QID Qty: 200 RF: 0 metoprolol succinate 25 mg Tablet Extended Release 24 Hr 75 mg PO DAILY Qty: 30 RF: 0 Continued latanoprost 0.005 % drops 1 drp ophthalmic (eye) HS RF: 0 cyanocobalamin (vitamin B-12) [Vitamin B-12] 1,000 mcg Tablet 2,000 mcg PO 3XWK RF: 0 tramadol 50 mg Tablet 50 mg PO BID PRN (Reason: Pain) RF: 0 nitroglycerin 0.4 mg Tablet, Sublingual 0.4 mg sublingual UD RF: 0 nystatin 100,000 unit/gram Powder 1 applic TOPICAL TID PRN (Reason: Rash) RF: 0 albuterol sulfate [ProAir HFA] 90 mcg/actuation Hfa Aerosol Inhaler 2 puff INHALATION Q4 PRN (Reason: Shortness Of Breath) RF: 0 Ocuvite with Lutein 1,000 unit-200 mg-60 unit-2 mg Tablet 1 tab PO QDL RF: 0 cholecalciferol (vitamin D3) [Vitamin D3] 2,000 unit Capsule 2,000 unit PO QDL RF: 0 aspirin [Aspirin Low Dose] 81 mg Tablet,Delayed Release (Dr/Ec) 81 mg PO HS RF: 0 risedronate 35 mg tablet 35 mg PO WK RF: 0 menthol-zinc oxide [Calmoseptine] 0.44-20.6 % Ointment 1 applic EXT BID Qty: 1 RF: 2 prednisone 5 mg tablet 5 mg PO QAM RF: 0 folic acid 1 mg tablet 1 mg PO QAM RF: 0 hydroxychloroquine 200 mg tablet 200 mg PO HS RF: 0 duloxetine 30 mg capsule,delayed release(DR/EC) 60 mg PO QDL RF: 0 thiamine mononitrate (vit B1) 100 mg tablet 50 mg PO QAM RF: 0 fluticasone furoate-vilanterol 100-25 mcg/dose Blister With Device 1 inh INHALATION QDL RF: 0 Centrum Silver Women 8 mg iron-400 mcg-300 mcg Tablet 1 tab PO QDL RF: 0 rosuvastatin 10 mg Tablet 10 mg PO QAM RF: 0 pantoprazole 40 mg Tablet,Delayed Release (Dr/Ec) 40 mg PO QAM RF: 0 montelukast 10 mg Tablet 10 mg PO HS RF: 0 lisinopril 2.5 mg tablet 2.5 mg PO QAM RF: 0 benzonatate 100 mg capsule 100 mg PO TID PRN (Reason: Cough) RF: 0 acetaminophen [Tylenol 8 Hour] 650 mg Tablet Extended Release 1,950 mg PO Q12H PRN (Reason: Pain) RF: 0 solifenacin [Vesicare] 10 mg tablet 10 mg PO QDL RF: 0 vancomycin 125 mg Capsule 125 mg PO DAILY RF: 0 Discontinued metoprolol succinate 50 mg Tablet Extended Release 24 Hr 50 mg PO DAILY RF: 0 Discharge Orders: Discharge Order (Routine); Ordered 08/27/21 Ordered By: Belkis Bowser/Other Patient Handouts: Managing Type 2 Diabetes Admission Data Admit Date/Time: 08/22/21 12:44 Attending Provider: Belkis Seymour Admit Provider: Kevin Rodriguez Primary Care Provider: Leni Moyer Other Providers: Belkis Seymour ; Kevin Rodriguez ; Flavio Melissa ; Chance Churchill ; Rachna Gonzalez ; Juan Ramon [facility] Other Interventions: Discharge Summary Assessment (RN) Last Done: 08/27/21 17:09
== END 2021-08-27 18:23 | disposition home health service (06) | DRG 152 ==
LOC: ED 10:17 → SUATTDRO 12:44 → EDINP 12:44 → 1E 17:46 → 3E 08-26 22:54

== ENCOUNTER 2022-03-21 14:15 | Inpatient (IN) ==
[2022-03-21] MEDS ORDERED: OPTIRAY 320 125ml IV ONE (14:17)
[2022-03-21 14:42] LABS: Base Excess VBG 1.5 mEq/L; HCO3 VBG 27 mmol/L; Oxygen Saturation VBG < 60.0 %; PCO2 VBG 46 mmHg (38-50); PO2 VBG 30 mmHg; pH VBG 7.38 (7.36-7.41)
--- NOTE | 2022-03-21 14:42 | CT Scan Report ---
UNENHANCED CT OF THE BRAIN; CT ANGIOGRAM OF THE BRAIN; CT ANGIOGRAM OF THE NECK CLINICAL HISTORY: Strokelike symptoms. COMPARISON STUDY: CT of the brain dated 09/06/2021. TECHNIQUE: Unenhanced axial CT scan of the brain is performed. Subsequently, following the IV adminis tration of 119 of [address] 320, CT angiogram of the head and neck was performed from the aortic arch t o the vertex. Images are reviewed in the axial, sagittal, and coronal planes. 3-D MIPS images are cre ated and assessed. IV contrast was administered without complication. All measurements were calculate d based on NASCET criteria. A dose lowering technique was utilized adhering to the principles of ALA RA. CT DOSE: 1395.13 mGy.cm FINDINGS: Brain parenchyma: There is age-related involutional change noting [id number] subcortical and pe riventricular microangiopathic disease. There is no hemorrhage, mass effect, or evidence of acute ter ritorial ischemia by CT criteria. There is no evidence of enhancing mass lesion on the angiogram phas e images. The ventricles, sulci, and cisterns are prominent secondary to involutional change. Lai-wh ite matter differentiation is preserved. No extra-axial fluid collection is seen. Thoracic aorta: There is atherosclerotic calcification of the thoracic aorta. Visualized portions of the thoracic aorta are normal in caliber. The aortic arch demonstrates standard 3-vessel anatomy. Right carotid arterial system: The right common carotid artery is patent, as are the right internal a nd external carotid arteries. Calcified plaque is noted in the carotid bulb. This causes less than 50 % luminal narrowing at the origin of the internal carotid artery. Left carotid arterial system: The left common carotid artery is widely patent, as are the left cisco certified internetwork expert al and external carotid arteries. Calcified plaque is seen in the carotid bulb. Vertebral arteries: The vertebral arteries are widely patent bilaterally noting left-sided dominance. Subclavian arteries: Widely patent bilaterally. Intracranial vasculature: There is atherosclerotic calcification of the cavernous carotid and vertebr al arteries. The saxman of Hardy is developmentally complete. The internal carotid arteries are sheppard nt at the skull base, as are the anterior and middle cerebral arteries bilaterally. The vertebrobasil ar system and posterior cerebral arteries are widely patent. The left vertebral artery is dominant. T here is no aneurysm, high-grade stenosis, or focal vessel cut off seen throughout the intracranial ci rculation. Jugular veins: Patent bilaterally. Dural sinuses: Patent. Lung apices: Partially visualized upper lobe lung parenchyma appears clear. Soft tissues: The visualized pharyngeal soft tissues are normal in appearance noting angiographic pha se technique. The oropharyngeal airway appears widely patent. The left lobe of the thyroid is atrophi c versus surgically absent. The salivary glands are normal in appearance. No cervical lymphadenopathy is seen. Skeletal structures: The skeletal structures are osteopenic. The calvarium appears intact. The cervic al spine is maintained noting multilevel spondylosis. No lytic or blastic lesion is seen. A right macho ulder arthroplasty is in place. Advanced arthritic change is seen in the left shoulder. Orbits: The bony orbits are intact. Orbital contents are normal as visualized noting bilateral ocular lens implants. Sinuses and mastoids: The paranasal sinuses are clear. The mastoid air cells are well pneumatized. IMPRESSION: 1. There is no hemorrhage, mass effect, or evidence of acute territorial ischemia by CT criteria. 2. Unremarkable CT angiogram of the brain. 3. Unremarkable CT angiogram of the neck noting atherosclerotic calcification of the carotid bulbs. ACT 112: Negative or not required by law. Electronically signed by: Brigido Gutierrez M.D. 03/21/2022 2:41 PM
[2022-03-21 14:58] LABS: Hematocrit (blood only) 33.4 % (34.1-44.9); Hemoglobin 11.3 g/dl (12.0-16.0); Mean Corpuscular Hemoglobin 29.1 pg (25.0-34.0); Mean Corpuscular Hgb Conc 33.8 g/dL (32.0-36.0); Mean Corpuscular Volume 86.1 fL (80.0-100.0); Platelet Count 97 K/uL (130-400); RDW Coefficient of Variation 15.3 % (11.5-14.5); RDW Standard Deviation 48.1 fL (36.4-46.3); Red Blood Count 3.88 M/uL (3.93-5.22); White Blood Count 3.63 K/ul (4.8-10.8)
[2022-03-21 15:01] LABS: Partial Thromboplastin Time 27.8 Seconds (21.0-31.0); Prothrombin Time 11.1 Seconds (9.0-12.0)
[2022-03-21 15:04] LABS: Albumin Globulin Ratio 0.9 (0.9-2); Albumin Level 2.6 gm/dl (3.4-5.0); BUN Creatinine Ratio 17.5 (10-20); Bilirubin,Total 0.5 mg/dl (0.2-1.0); Calcium 8.3 mg/dl (8.5-10.1); Creatinine Clr Calc Pharmacy 33.7 ml/min; Est GFR (African American) 43.9 ml/min; Est GFR (Non-African American) 37.9 ml/min; Globulin 2.9 gm/dl (2.5-4.0); Magnesium 1.5 mg/dl (1.7-2.4); Potassium 3.2 mmol/L (3.5-5.1); Total Protein 5.5 gm/dl (6.0-8.3)
[2022-03-21] MEDS ORDERED: MAGNESIUM SULFATE / D5W 1 GM/100 ML BAG IV STA (15:22)
--- NOTE | 2022-03-21 15:39 | XRay Report ---
XR chest 1V portable HISTORY: 76 years-old Female Stroke Like Symptoms acute strokelike symptoms COMPARISON: 10/03/2021 TECHNIQUE: Portable AP view of the chest FINDINGS: The cardiac silhouette is enlarged. Atherosclerosis of the aorta. No pneumothorax, pleural effusion o r lobar airspace consolidation. Mild chronic diffuse interstitial coarsening. Degenerative changes of the spine and left shoulder. Reverse right shoulder total joint arthroplasty. IMPRESSION: Cardiomegaly without acute process. ACT 112: Negative or not required by law. The above report was generated using voice recognition software. It may contain grammatical, syntax o r spelling errors. Electronically signed by: Brant Mccoy M.D. 03/21/2022 3:37 PM
[2022-03-21 15:55] LABS: Appearance Urine Clear (Clear); Bilirubin Urine Negative (Negative); Blood Urine Negative (Negative); Color Urine Yellow; Glucose Urine UA Negative (Negative); Ketones Urine Negative (Negative); Leukocyte Esterase Urine Negative (Negative); Nitrite Urine Negative (Negative); Protein Urine Negative (Negative); Specific Gravity Urine 1.018 (1.000-1.030); Urobilinogen Urine Negative (Negative); pH Urine 5.5 (4.5-7.5)
--- NOTE | 2022-03-21 16:24 | History & Physical Report ---
Date of Service March 21, 2022 Assessment & Plan (1) Stroke-like symptoms: Plan: Patient is 76 y/o F with PMH CAD, HTN, HLD, DM II, history of C. difficile on chronic vancomycin therapy, ILD, COPD, rheumatoid arthritis on chronic prednisone therapy, CKD III presented to ER for difficulty speaking and generalized weakness noted at noon today. Last well known 7:00am. Upon ER presentation patient unable to move extremities and had aphasia. During ER course patient improving and now able to move extremities and talking. Has some confusion CT Head: There is no hemorrhage, mass effect, or evidence of acute territorial ischemia CTA Head and neck: Unremarkable CT angiogram of the brain. Unremarkable CT angiogram of the neck noting atherosclerotic calcification of the carotid bulbs. R/O TIA, CVA Tele to monitor for arrhythmias A1C, lipid panel, TSH in am MRI brain Echo Aspiration precautions PT/OT consult Continue rosuvastatin and aspirin Neurology consult Elevated Troponin History CAD High sensitivity troponin: 22. EKG sinus rhythm, rate 80, RBBB, Q waves inferior leads, T wave inversions lateral leads. Prior EKGs reviewed with intermittent T wave inversions noted, chronic RBBB Denies shortness of breath, chest pain Trend troponin Echo EKG a.m. Continue aspirin, statin, metoprolol succinate If troponin increasing consider cardiology consult Hypokalemia K: 3.2 Replace and monitor Hypomagnesemia Magnesium: 1.5 In ER given magnesium sulfate Monitor CKD III Cr: 1.37. Baseline 1.3-1.4 Monitor renal functions Rheumatoid arthritis On chronic prednisone Continue prednisone 5 mg daily, hydroxychloroquine COPD/ILD No signs exacerbation Continue home inhalers Prediabetes Last A1c 6.5 on 11/22/2021 On diet modifications NovoLog sliding scale per protocol HTN Continue metoprolol succinate History C. difficile On chronic vancomycin Continue oral vancomycin DVT Prophylaxis Heparin SQ Full Code as per discussion with pt and pt's Follows with Dr Moyer for routine care Pt was seen and care coordinated with Dr Owen See addendum History of Present Illness Chief Complaint: difficulty speaking and weakness Primary Care Provider: Leni Moyer DO Patient is 76 y/o F with PMH CAD, HTN, HLD, DM II, history of C. difficile on chronic vancomycin therapy, ILD, COPD, rheumatoid arthritis on chronic prednisone therapy, CKD III presented to ER for difficulty speaking and weakness. History obtained from patient and patient's and inpatient and outpatient chart review. Patient's reports 7 AM today patient woke up and she was answering his questions appropriately. States patient does not wake up until noon on a daily basis. Reports today it was noon and patient was not up so he woke patient up and she seemed confused and was unable to talk. He states she acted like she tried to talk but nothing came out. He attempted to get her up and she was unable to sit up. He tried to dress her but she was unable to help get herself dressed. called EMS. Upon ER presentation reported pt had aphasia and was not moving her extremities. During ER course patient able to talk and is moving extremities, however with some confusion. Patient denies any new visual disturbance. Denies fever/chills, diaphoresis, N/V/D/C, TORRES, dizziness, syncope, neck pain, CP, SOB, orthopnea, palpitations, cough, sore throat, choking, otalgia, rhinorrhea, abdominal pain, paresthesias, extremity edema, rashes, urinary symptoms. Allergies Allergy/AdvReac Type Severity Reaction Status Date / Time methotrexate Allergy Intermediate RASH/PNEUMO Verified 03/21/22 16:46 NITIS Penicillins Allergy Intermediate hives Verified 03/21/22 16:46 ranitidine Allergy Intermediate rash Verified 03/21/22 16:46 Home Medications Medication Instructions Recorded Confirmed Type duloxetine 30 mg capsule,delayed 60 mg PO DAILY 07/20/18 03/21/22 History release folic acid 1 mg tablet 1 mg PO QAM 07/20/18 03/21/22 History hydroxychloroquine 200 mg tablet 200 mg PO HS 07/20/18 03/21/22 History prednisone 5 mg tablet 5 mg PO QAM 07/20/18 03/21/22 History albuterol sulfate 90 mcg/actuation 2 puff INHALATION Q4 PRN 03/07/19 03/21/22 History aerosol inhaler (ProAir HFA) cyanocobalamin (vitamin B-12) 2,000 mcg PO 3XWK 03/07/19 03/21/22 History 1,000 mcg tablet (Vitamin B-12) vit A 300 mcg-C 200 mg-E 27 1 tab PO QDL 03/07/19 03/21/22 History mg-lutein 2 mg and minerals tablet (Ocuvite with Lutein) multivit with 1 tab PO QDL 11/12/19 03/21/22 History isolcbcj-wqjr-TA-lutein 8 mg iron-400 mcg-300 mcg tablet (Centrum Silver Women) rosuvastatin 10 mg tablet 10 mg PO QAM 11/12/19 03/21/22 History aspirin 81 mg tablet,delayed 81 mg PO HS 10/09/20 03/21/22 History release (Ruddy Low Dose Aspirin) montelukast 10 mg tablet 10 mg PO HS 11/15/20 03/21/22 History latanoprost 0.005 % eye drops 1 drp OPHTHALMIC (EYE) HS 01/03/21 03/21/22 History solifenacin 10 mg tablet (Vesicare) 10 mg PO QDL 08/22/21 03/21/22 History acetaminophen 325 mg tablet 325 mg PO BID PRN 03/21/22 03/21/22 History fluticasone furoate 200 1 inh INHALATION DAILY 03/21/22 03/21/22 History mcg-vilanterol 25 mcg/dose inhalation powder (Breo Ellipta) metoprolol succinate 50 mg 50 mg PO QAM 03/21/22 03/21/22 History tablet,extended release 24 hr pantoprazole 40 mg tablet,delayed 40 mg PO QAM 03/21/22 03/21/22 History release thiamine HCl (vitamin B1) 100 mg 50 mg PO DAILY 03/21/22 03/21/22 History tablet vancomycin 125 mg capsule 125 mg PO DAILY 03/21/22 03/21/22 History Past Med/Surg History Medical History Abnormal ECG Acute hyponatremia Asthma inhalers prn Chronic steroid use prednisone daily CKD (chronic kidney disease), stage III COPD (chronic obstructive pulmonary disease) inhalers prn Depression DJD of right shoulder DM type 2 (diabetes mellitus, type 2) Dyslipidemia Elevated troponin Gastroparesis GERD (gastroesophageal reflux disease) Glaucoma Gout H/O interstitial lung disease "drug induced- methotrexate " Heart disease HTN (hypertension) Migraines NSTEMI (non-ST elevated myocardial infarction) (08/06/13) Osteoarthritis Peripheral neuropathy Rheumatoid arthritis "on chronic steroids" RSV infection Syncope Surgical History H/O cardiac catheterization "cath 07/2013- single vessel CAD involving apical segment LAD, medical management indicated" H/O colonoscopy History of esophagogastroduodenoscopy (EGD) History of hysterectomy History of tooth extraction all top teeth S/P removal of ovarian cyst S/P rotator cuff repair "right shoulder" S/P total knee arthroplasty "left knee" Family History Father Family history of diabetes mellitus Mother Heart disease Hypertension Other No family history of adverse response to anesthesia Social History Smoking Status: Never smoker Second Hand Exposure: No; Hx Alcohol Use: No Hx Substance Use: No Preferred Language: Filipino Communication Ability: Effective Wet Wheeler Required: No Beliefs That Will Affect Care: None marital status: Current Living Situation: Spouse Other Information That Helps Us Care for You: No Feels Safe at Home: Yes Safety Concerns: Feels Safe At This Time Assistive Devices: Glasses, Walker and Wheelchair Review of Systems Review of Systems: All systems reviewed & are unremarkable except as noted in HPI & below Physical Exam Physical Exam: General: no distress, WDWN Head: normocephalic, atraumatic Eyes: PERRL, EOM's intact, conjunctiva non-injected, anicteric ENT: normal inspection external ears, nose, mucous membranes moist Neck: supple, trachea midline Lungs: clear, no respiratory distress, no wheezing/rhonchi/rales CV: RRR, no murmur, no pretibial edema Abd: normal BS, soft, non-tender Ext: no cyanosis, no calf tenderness Neuro: Alert, oriented to person. Knows in hospital but unsure of name or city. Knows is 2021 but unsure of month, day or season. Says president is [place]. facial sensation is intact and symmetric, face is strong and symmetric, hearing grossly intact, soft palate elevates symmetrically, no dysarthria, shoulder shrug intact, tongue is midline, normal movement, no fasciculations. Diffuse weakness bilateral upper and lower extremities 4/5. Skin: warm, dry Results & Data Results & Data ([facility]) Vital Signs (Past 12 Hours) Vital Signs Temp Pulse Pulse Resp BP BP Pulse Ox 03/21/22 15:07 83 16 118/60 94 03/21/22 14:30 37.1 C 80 20 144/66 H 94 Laboratory Results Short CBC 03/21/22 Range/Units 14:34 WBC 3.63 L (4.8-10.8) K/ul Hgb 11.3 L (12.0-16.0) g/dl Hct 33.4 L (34.1-44.9) % Plt Count 97 L (130-400) K/uL BMP 03/21/22 14:34 Sodium 132 L Potassium 3.2 L Chloride 99 Carbon Dioxide 26 BUN 24 H Creatinine 1.37 H Glucose 140 H Calcium 8.3 L Liver Function 03/21/22 Range/Units 14:34 Total Bilirubin 0.5 (0.2-1.0) mg/dl AST 37 (13-39) U/L ALT 14 (7-52) U/L Alkaline Phosphatase 66 (34-104) U/L Albumin 2.6 L (3.4-5.0) gm/dl Urine 03/21/22 Range/Units 14:49 Urine Color Yellow Urine Appearance Clear (Clear) Urine pH 5.5 (4.5-7.5) Ur Specific [place] 1.018 (1.000-1.030) Urine Protein Negative (Negative) Urine Glucose (UA) Negative (Negative) Diagnostic Findings Chest X-Ray 03/21/22 14:12 XR chest 1V portable HISTORY: 76 years-old Female Stroke Like Symptoms acute strokelike symptoms COMPARISON: 10/03/2021 TECHNIQUE: Portable AP view of the chest FINDINGS: The cardiac silhouette is enlarged. Atherosclerosis of the aorta. No pneumothorax, pleural effusion or lobar airspace consolidation. Mild chronic diffuse interstitial coarsening. Degenerative changes of the spine and left shoulder. Reverse right shoulder total joint arthroplasty. IMPRESSION: Cardiomegaly without acute process. ACT 112: Negative or not required by law. The above report was generated using voice recognition software. It may contain grammatical, syntax or spelling errors. Electronically signed by: Brant Mccoy M.D. 03/21/2022 3:[address] 03/21/22 14:[address] OF THE BRAIN; CT ANGIOGRAM OF THE BRAIN; CT ANGIOGRAM OF THE NECK CLINICAL HISTORY: Strokelike symptoms. COMPARISON STUDY: CT of the brain dated 09/06/2021. TECHNIQUE: Unenhanced axial CT scan of the brain is performed. Subsequently, following the IV administration of 119 of Optiray 320, CT angiogram of the head and neck was performed from the aortic arch to the vertex. Images are reviewed in the axial, sagittal, and coronal planes. 3-D MIPS images are created and assessed. IV contrast was administered without complication. All measurements were calculated based on NASCET criteria. A dose lowering technique was utilized adhering to the principles of ALARA. CT DOSE: 1395.13 mGy.cm FINDINGS: Brain parenchyma: There is age-related involutional change noting [id number] subcortical and periventricular microangiopathic disease. There is no hemorrhage, mass effect, or evidence of acute territorial ischemia by CT criteria. There is no evidence of enhancing mass lesion on the angiogram phase images. The ventricles, sulci, and cisterns are prominent secondary to involutional change. Lai-white matter differentiation is preserved. No extra- axial fluid collection is seen. Thoracic aorta: There is atherosclerotic calcification of the thoracic aorta. Visualized portions of the thoracic aorta are normal in caliber. The aortic arch demonstrates standard 3-vessel anatomy. Right carotid arterial system: The right common carotid artery is patent, as are the right internal and external carotid arteries. Calcified plaque is noted in the carotid bulb. This causes less than 50% luminal narrowing at the origin of the internal carotid artery. Left carotid arterial system: The left common carotid artery is widely patent, as are the left internal and external carotid arteries. Calcified plaque is seen in the carotid bulb. Vertebral arteries: The vertebral arteries are widely patent bilaterally noting left-sided dominance. Subclavian arteries: Widely patent bilaterally. Intracranial vasculature: There is atherosclerotic calcification of the cavernous carotid and vertebral arteries. The lumbee of Hardy is developmentally complete. The internal carotid arteries are patent at the skull base, as are the anterior and middle cerebral arteries bilaterally. The vertebrobasilar system and posterior cerebral arteries are widely patent. The left vertebral artery is dominant. There is no aneurysm, high-grade stenosis, or focal vessel cut off seen throughout the intracranial circulation. Jugular veins: Patent bilaterally. Dural sinuses: Patent. Lung apices: Partially visualized upper lobe lung parenchyma appears clear. Soft tissues: The visualized pharyngeal soft tissues are normal in appearance noting angiographic phase technique. The oropharyngeal airway appears widely patent. The left lobe of the thyroid is atrophic versus surgically absent. The salivary glands are normal in appearance. No cervical lymphadenopathy is seen. Skeletal structures: The skeletal structures are osteopenic. The calvarium appears intact. The cervical spine is maintained noting multilevel spondylosis. No lytic or blastic lesion is seen. A right shoulder arthroplasty is in place. Advanced arthritic change is seen in the left shoulder. Orbits: The bony orbits are intact. Orbital contents are normal as visualized noting bilateral ocular lens implants. Sinuses and mastoids: The paranasal sinuses are clear. The mastoid air cells are well pneumatized. IMPRESSION: 1. There is no hemorrhage, mass effect, or evidence of acute territorial ischemia by CT criteria. 2. Unremarkable CT angiogram of the brain. 3. Unremarkable CT angiogram of the neck noting atherosclerotic calcification of the carotid bulbs. ACT 112: Negative or not required by law. Electronically signed by: Brigido Gutierrez M.D. 03/21/2022 2:41 PM Head CTA 03/21/22 14:[address] OF THE BRAIN; CT ANGIOGRAM OF THE BRAIN; CT ANGIOGRAM OF THE NECK CLINICAL HISTORY: Strokelike symptoms. COMPARISON STUDY: CT of the brain dated 09/06/2021. TECHNIQUE: Unenhanced axial CT scan of the brain is performed. Subsequently, following the IV administration of 119 of Optiray 320, CT angiogram of the head and neck was performed from the aortic arch to the vertex. Images are reviewed in the axial, sagittal, and coronal planes. 3-D MIPS images are created and assessed. IV contrast was administered without complication. All measurements were calculated based on NASCET criteria. A dose lowering technique was utilized adhering to the principles of ALARA. CT DOSE: 1395.13 mGy.cm FINDINGS: Brain parenchyma: There is age-related involutional change noting [id number] subcortical and periventricular microangiopathic disease. There is no hemorrhage, mass effect, or evidence of acute territorial ischemia by CT criteria. There is no evidence of enhancing mass lesion on the angiogram phase images. The ventricles, sulci, and cisterns are prominent secondary to involutional change. Lai-white matter differentiation is preserved. No extra-axial fluid collection is seen. Thoracic aorta: There is atherosclerotic calcification of the thoracic aorta. Visualized portions of the thoracic aorta are normal in caliber. The aortic arch demonstrates standard 3-vessel anatomy. Right carotid arterial system: The right common carotid artery is patent, as are the right internal and external carotid arteries. Calcified plaque is noted in the carotid bulb. This causes less than 50% luminal narrowing at the origin of the internal carotid artery. Left carotid arterial system: The left common carotid artery is widely patent, as are the left internal and external carotid arteries. Calcified plaque is seen in the carotid bulb. Vertebral arteries: The vertebral arteries are widely patent bilaterally noting left-sided dominance. Subclavian arteries: Widely patent bilaterally. Intracranial vasculature: There is atherosclerotic calcification of the cavernous carotid and vertebral arteries. The lumbee of Hardy is developmentally complete. The internal carotid arteries are patent at the skull base, as are the anterior and middle cerebral arteries bilaterally. The vertebrobasilar system and posterior cerebral arteries are widely patent. The left vertebral artery is dominant. There is no aneurysm, high-grade stenosis, or focal vessel cut off seen throughout the intracranial circulation. Jugular veins: Patent bilaterally. Dural sinuses: Patent. Lung apices: Partially visualized upper lobe lung parenchyma appears clear. Soft tissues: The visualized pharyngeal soft tissues are normal in appearance noting angiographic phase technique. The oropharyngeal airway appears widely patent. The left lobe of the thyroid is atrophic versus surgically absent. The salivary glands are normal in appearance. No cervical lymphadenopathy is seen. Skeletal structures: The skeletal structures are osteopenic. The calvarium appears intact. The cervical spine is maintained noting multilevel spondylosis. No lytic or blastic lesion is seen. A right shoulder arthroplasty is in place. Advanced arthritic change is seen in the left shoulder. Orbits: The bony orbits are intact. Orbital contents are normal as visualized noting bilateral ocular lens implants. Sinuses and mastoids: The paranasal sinuses are clear. The mastoid air cells are well pneumatized. IMPRESSION: 1. There is no hemorrhage, mass effect, or evidence of acute territorial ischemia by CT criteria. 2. Unremarkable CT angiogram of the brain. 3. Unremarkable CT angiogram of the neck noting atherosclerotic calcification of the carotid bulbs. ACT 112: Negative or not required by law. Electronically signed by: Brigido Gutierrez M.D. 03/21/2022 2:41 PM Neck CTA 03/21/22 14:[address] OF THE BRAIN; CT ANGIOGRAM OF THE BRAIN; CT ANGIOGRAM OF THE NECK CLINICAL HISTORY: Strokelike symptoms. COMPARISON STUDY: CT of the brain dated 09/06/2021. TECHNIQUE: Unenhanced axial CT scan of the brain is performed. Subsequently, following the IV administration of 119 of Optiray 320, CT angiogram of the head and neck was performed from the aortic arch to the vertex. Images are reviewed in the axial, sagittal, and coronal planes. 3-D MIPS images are created and assessed. IV contrast was administered without complication. All measurements were calculated based on NASCET criteria. A dose lowering technique was util ized adhering to the principles of ALARA. CT DOSE: 1395.13 mGy.cm FINDINGS: Brain parenchyma: There is age-related involutional change noting [id number] subcortical and periventricular microangiopathic disease. There is no hemorrhage, mass effect, or evidence of acute territorial ischemia by CT criteria. There is no evidence of enhancing mass lesion on the angiogram phase images. The ventricles, sulci, and cisterns are prominent secondary to involutional change. Lai-white matter differentiation is preserved. No extra- axial fluid collection is seen. Thoracic aorta: There is atherosclerotic calcification of the thoracic aorta. Visualized portions of the thoracic aorta are normal in caliber. The aortic arch demonstrates standard 3-vessel anatomy. Right carotid arterial system: The right common carotid artery is patent, as are the right internal and external carotid arteries. Calcified plaque is noted in the carotid bulb. This causes less than 50% luminal narrowing at the origin of the internal carotid artery. Left carotid arterial system: The left common carotid artery is widely patent, as are the left internal and external carotid arteries. Calcified plaque is seen in the carotid bulb. Vertebral arteries: The vertebral arteries are widely patent bilaterally noting left-sided dominance. Subclavian arteries: Widely patent bilaterally. Intracranial vasculature: There is atherosclerotic calcification of the cavernous carotid and vertebral arteries. The lumbee of Hardy is developmentally complete. The internal carotid arteries are patent at the skull base, as are the anterior and middle cerebral arteries bilaterally. The vertebrobasilar system and posterior cerebral arteries are widely patent. The left vertebral artery is dominant. There is no aneurysm, high-grade stenosis, or focal vessel cut off seen throughout the intracranial circulation. Jugular veins: Patent bilaterally. Dural sinuses: Patent. Lung apices: Partially visualized upper lobe lung parenchyma appears clear. Soft tissues: The visualized pharyngeal soft tissues are normal in appearance noting angiographic phase technique. The oropharyngeal airway appears widely patent. The left lobe of the thyroid is atrophic versus surgically absent. The salivary glands are normal in appearance. No cervical lymphadenopathy is seen. Skeletal structures: The skeletal structures are osteopenic. The calvarium appears intact. The cervical spine is maintained noting multilevel spondylosis. No lytic or blastic lesion is seen. A right shoulder arthroplasty is in place. Advanced arthritic change is seen in the left shoulder. Orbits: The bony orbits are intact. Orbital contents are normal as visualized noting bilateral ocular lens implants. Sinuses and mastoids: The paranasal sinuses are clear. The mastoid air cells are well pneumatized. IMPRESSION: 1. There is no hemorrhage, mass effect, or evidence of acute territorial ischemia by CT criteria. 2. Unremarkable CT angiogram of the brain. 3. Unremarkable CT angiogram of the neck noting atherosclerotic calcification of the carotid bulbs. ACT 112: Negative or not required by law. Electronically signed by: Brigido Gutierrez M.D. 03/21/2022 2:41 PM Code Status & VTE Plan VTE Prophylaxis Plan VTE Prophylaxis will be ordered: Yes Supervising Physician Co-Signing Physician Notes 76-year-old lady with PMH of CAD, HTN, HLD, DM2, C. difficile on chronic vancomycin therapy, ILD, COPD, rheumatoid arthritis on chronic steroid therapy, CKD stage III presented to the ED 03/21 with complaint of difficulty articulating, confusion and generalized weakness that started today afternoon. Per her , last well-known was 7 AM today morning. When she woke up in the afternoon, she was not able to communicate and was very weak and confused, at bedside exam, patient was articulating much better but not up to her baseline per her , extremities strength has gotten better. Admitting CT head and CTA head and neck with no acute findings. MRI brain with and without contrast, neurology consult. Echo. Telemetry monitoring. Replete electrolytes, monitor and replete as appropriate. Troponin elevated at presentation, will continue to trend, consider cardiology consult if uptrending. WBC low, afebrile, monitor off antibiotic, follow CBC in a.m. Mild hyponatremia, seems to be her baseline. Upon examination: GENERAL: Alert and oriented x3. NAD, on RA. HEENT: No pallor, no icterus. Pupils equal, round and reactive to light. Oral mucosa moist. NECK: No JVD, no neck masses. HEART: S1 and S2 heard. Regular rate and rhythm. No murmur, no gallop. RESPIRATORY SYSTEM: Normal AP diameter. No accessory muscle use. No wheezing, no crackles. ABDOMEN: Soft, bowel sounds present, nontender, no distention. CENTRAL NERVOUS SYSTEM: No facial droop. Speech is not very clear. Obeys simple commands. Moves extremities. strength all extremities 4-5/5 EXTREMITIES: No edema, no erythema seen. I have seen and examined the patient and have discussed the case with the provider above. I agree with the assessment and plan as stated.
[2022-03-21 16:34] LABS: Basophils # (auto) 0.01 K/uL (0-0.2); Basophils % (auto) 0.3 %; Eosinophils # (auto) 0.05 K/uL (0-0.50); Eosinophils % (auto) 1.4 %; Immature Granulocytes # (auto) 0.02 K/uL (0.00-0.02); Immature Granulocytes % (auto) 0.6 %; Lymphocytes # (auto) 1.36 K/uL (1.2-3.4); Lymphocytes % (auto) 37.5 %; Monocytes # (auto) 0.57 K/uL (0.24-0.82); Monocytes % (auto) 15.7 %; Neutrophils # (auto) 1.62 K/uL (1.4-6.5); Neutrophils % (auto) 44.5 %
[2022-03-21] MEDS ORDERED: ASPIRIN 81 MG CHEW PO STA (17:01)
[2022-03-21] MEDS ORDERED: POTASSIUM CHLORIDE CRTAB 20 MEQ TABCR PO STA (17:33)
[2022-03-21] MEDS ORDERED: ONDANSETRON INJ 2 MG/ML 2 ML VIAL IV PRN (18:06)
[2022-03-21] MEDS ORDERED: PHARMACIST DISCHARGE MED REC CONSULT PRN (18:06)
[2022-03-21] MEDS ORDERED: SODIUM CHLORIDE 0.9% 1000ML 1,000 ML IV SCH (18:06)
[2022-03-21] MEDS ORDERED: POLYETHYLENE (MIRALAX) 17 GM PACK PO PRN (18:06)
[2022-03-21] MEDS ORDERED: ALBUTEROL HFA 8 GM INHALER INH PRN (18:17)
[2022-03-21] MEDS ORDERED: GLUCOSE 40% GEL 15 GM TUBE PO PRN (19:39)
[2022-03-21] MEDS ORDERED: CARBOHYDRATES FOR HYPOGLYCEMIA PO PRN (19:39)
[2022-03-21] MEDS ORDERED: GLUCOSE 10 TAB/TUBE PO PRN ×2 (19:39→19:45)
[2022-03-21] MEDS ORDERED: GLUCAGON FOR INJ 1 MG VIAL SQ PRN (19:39)
[2022-03-21] MEDS ORDERED: DEXTROSE 50% 50 ML SYRINGE IV PRN (19:39)
[2022-03-21] MEDS: HEPARIN SOD 5,000 UNIT/0.5 ML VIAL SQ SCH (20:26)
[2022-03-21] MEDS: predniSONE 5 MG TAB PO SCH (20:27)
[2022-03-21] MEDS: ROSUVASTATIN CALCIUM 10 MG TAB PO SCH (20:28)
[2022-03-21] MEDS: METOPROLOL SUCC 50MG EXT REL TAB PO SCH (20:28)
[2022-03-21] MEDS: HYDROXYCHLOROQUINE SULFATE 200 MG TAB PO SCH (20:28)
[2022-03-21] MEDS: MONTELUKAST SODIUM 10 MG TABLET PO SCH (20:29)
[2022-03-21] MEDS: LATANOPROST 0.005% OP SOLN 2.5 ML BTL OP SCH (20:29)
[2022-03-21] MEDS: FLUTICASONE/VILANTEROL 200/25MCG 14 PUFFS/INHALER INH SCH (20:32)
[2022-03-21] MEDS: INSULIN ASPART PER UNIT SC SCH (20:44)
[2022-03-21] MEDS ORDERED: POTASSIUM CHLORIDE CRTAB 20 MEQ TABCR PO ONE (21:00)
--- NOTE | 2022-03-21 21:46 | Emergency Department Note ---
History of Present Illness General Chief complaint: Altered Mental Status Stated complaint: stroke alert Source: EMS History of Present Illness Provider complaint: Altered mental status strokelike symptoms Associated symptoms: + weakness 76-year-old female presents emergency department via EMS for altered mental status and strokelike symptoms. Per EMS the patient's last well-known normal was 0700. They report when they arrived that the patient was unable to speak unable to move her legs and had a facial droop. No blood thinners. Home Medications Medication Instructions Recorded Confirmed Type duloxetine 30 mg capsule,delayed 60 mg PO DAILY 07/20/18 03/21/22 History release folic acid 1 mg tablet 1 mg PO QAM 07/20/18 03/21/22 History hydroxychloroquine 200 mg tablet 200 mg PO HS 07/20/18 03/21/22 History prednisone 5 mg tablet 5 mg PO QAM 07/20/18 03/21/22 History albuterol sulfate 90 mcg/actuation 2 puff INHALATION Q4 PRN 03/07/19 03/21/22 History aerosol inhaler (ProAir HFA) cyanocobalamin (vitamin B-12) 2,000 mcg PO 3XWK 03/07/19 03/21/22 History 1,000 mcg tablet (Vitamin B-12) vit A 300 mcg-C 200 mg-E 27 1 tab PO QDL 03/07/19 03/21/22 History mg-lutein 2 mg and minerals tablet (Ocuvite with Lutein) multivit with 1 tab PO QDL 11/12/19 03/21/22 History avcckhbt-hkgy-TB-lutein 8 mg iron-400 mcg-300 mcg tablet (Centrum Silver Women) rosuvastatin 10 mg tablet 10 mg PO QAM 11/12/19 03/21/22 History aspirin 81 mg tablet,delayed 81 mg PO HS 10/09/20 03/21/22 History release (Ruddy Low Dose Aspirin) montelukast 10 mg tablet 10 mg PO HS 11/15/20 03/21/22 History latanoprost 0.005 % eye drops 1 drp OPHTHALMIC (EYE) HS 01/03/21 03/21/22 History solifenacin 10 mg tablet (Vesicare) 10 mg PO QDL 08/22/21 03/21/22 History acetaminophen 325 mg tablet 325 mg PO BID PRN 03/21/22 03/21/22 History fluticasone furoate 200 1 inh INHALATION DAILY 03/21/22 03/21/22 History mcg-vilanterol 25 mcg/dose inhalation powder (Breo Ellipta) metoprolol succinate 50 mg 50 mg PO QAM 03/21/22 03/21/22 History tablet,extended release 24 hr pantoprazole 40 mg tablet,delayed 40 mg PO QAM 03/21/22 03/21/22 History release thiamine HCl (vitamin B1) 100 mg 50 mg PO DAILY 03/21/22 03/21/22 History tablet vancomycin 125 mg capsule 125 mg PO DAILY 03/21/22 03/21/22 History Allergies Allergy/AdvReac Type Severity Reaction Status Date / Time methotrexate Allergy Intermediate RASH/PNEUMO Verified 03/21/22 16:46 NITIS Penicillins Allergy Intermediate hives Verified 03/21/22 16:46 ranitidine Allergy Intermediate rash Verified 03/21/22 16:46 Past Med/Surg History Medical History Abnormal ECG Acute hyponatremia Asthma inhalers prn Chronic steroid use prednisone daily CKD (chronic kidney disease), stage III COPD (chronic obstructive pulmonary disease) inhalers prn Depression DJD of right shoulder DM type 2 (diabetes mellitus, type 2) Dyslipidemia Elevated troponin Gastroparesis GERD (gastroesophageal reflux disease) Glaucoma Gout H/O interstitial lung disease "drug induced- methotrexate " Heart disease HTN (hypertension) Migraines NSTEMI (non-ST elevated myocardial infarction) (08/06/13) Osteoarthritis Peripheral neuropathy Rheumatoid arthritis "on chronic steroids" RSV infection Syncope Surgical History H/O cardiac catheterization "cath 07/2013- single vessel CAD involving apical segment LAD, medical management indicated" H/O colonoscopy History of esophagogastroduodenoscopy (EGD) History of hysterectomy History of tooth extraction all top teeth S/P removal of ovarian cyst S/P rotator cuff repair "right shoulder" S/P total knee arthroplasty "left knee" Family History Father Family history of diabetes mellitus Mother Heart disease Hypertension Other No family history of adverse response to anesthesia Social History Smoking Status: Never smoker Second Hand Exposure: No; Hx Alcohol Use: No Hx Substance Use: No Preferred Language: Bulgarian Communication Ability: Effective Carpet Measurer Required: No Beliefs That Will Affect Care: None marital status: Current Living Situation: Spouse Other Information That Helps Us Care for You: No Feels Safe at Home: Yes Safety Concerns: Feels Safe At This Time Assistive Devices: Glasses, Walker and Wheelchair Review of Systems Unobtainable due to cognitive status Physical Exam Vital Signs Vital Signs - 24 hr 03/21/22 14:30 03/21/22 14:34 03/21/22 14:40 Temperature 37.1 C Temperature Source Oral Pulse Rate 80 81 83 Pulse Rate [Left Apical] Pulse Rate from SpO2 Sensor 81 82 Pulse Rhythm [Left Apical] Pulse Strength [Left Apical] Respiratory Rate 20 32 H 31 H Respiratory Effort / Characteristics Non-Labored Spontaneous Respiratory Depth Normal Respiratory Pattern Regular Blood Pressure 144/66 H Blood Pressure [Right Arm] Blood Pressure Mean 92 Blood Pressure Mean [Right Arm] Blood Pressure Position Semi-fowlers Blood Pressure Position [Right Arm] Pulse Oximetry 94 95 94 Oxygen Delivery Method Room Air Sepsis Recent Fever Within 48 Hours No Sepsis New/Unexplained Change in Mental Status Yes Sepsis Action Taken by Nursing No Action Required 03/21/22 14:50 03/21/22 15:04 03/21/22 15:05 Temperature Temperature Source Pulse Rate 83 82 83 Pulse Rate [Left Apical] Pulse Rate from SpO2 Sensor 84 83 81 Pulse Rhythm [Left Apical] Pulse Strength [Left Apical] Respiratory Rate 18 26 H 28 H Respiratory Effort / Characteristics Respiratory Depth Respiratory Pattern Blood Pressure 118/60 Blood Pressure [Right Arm] Blood Pressure Mean 79 Blood Pressure Mean [Right Arm] Blood Pressure Position Blood Pressure Position [Right Arm] Pulse Oximetry 94 94 96 Oxygen Delivery Method Sepsis Recent Fever Within 48 Hours Sepsis New/Unexplained Change in Mental Status Sepsis Action Taken by Nursing 03/21/22 15:07 03/21/22 15:10 03/21/22 15:20 Temperature Temperature Source Pulse Rate 85 85 Pulse Rate [Left Apical] 83 Pulse Rate from SpO2 Sensor 86 86 Pulse Rhythm [Left Apical] Regular Pulse Strength [Left Apical] Normal Respiratory Rate 16 28 H 24 Respiratory Effort / Characteristics Non-Labored Respiratory Depth Normal Respiratory Pattern Blood Pressure Blood Pressure [Right Arm] 118/60 Blood Pressure Mean Blood Pressure Mean [Right Arm] 79 Blood Pressure Position Blood Pressure Position [Right Arm] Lying Pulse Oximetry 94 93 92 Oxygen Delivery Method Room Air Sepsis Recent Fever Within 48 Hours Sepsis New/Unexplained Change in Mental Status Sepsis Action Taken by Nursing 03/21/22 15:30 03/21/22 15:40 03/21/22 15:50 Temperature Temperature Source Pulse Rate 85 84 83 Pulse Rate [Left Apical] Pulse Rate from SpO2 Sensor 85 85 83 Pulse Rhythm [Left Apical] Pulse Strength [Left Apical] Respiratory Rate 29 H 28 H 28 H Respiratory Effort / Characteristics Respiratory Depth Respiratory Pattern Blood Pressure 144/72 H Blood Pressure [Right Arm] Blood Pressure Mean 96 Blood Pressure Mean [Right Arm] Blood Pressure Position Blood Pressure Position [Right Arm] Pulse Oximetry 94 93 94 Oxygen Delivery Method Sepsis Recent Fever Within 48 Hours Sepsis New/Unexplained Change in Mental Status Sepsis Action Taken by Nursing 03/21/22 16:00 03/21/22 16:10 03/21/22 16:20 Temperature Temperature Source Pulse Rate 83 81 81 Pulse Rate [Left Apical] Pulse Rate from SpO2 Sensor 83 81 81 Pulse Rhythm [Left Apical] Pulse Strength [Left Apical] Respiratory Rate 27 H 28 H 26 H Respiratory Effort / Characteristics Respiratory Depth Respiratory Pattern Blood Pressure 143/72 H Blood Pressure [Right Arm] Blood Pressure Mean 95 Blood Pressure Mean [Right Arm] Blood Pressure Position Blood Pressure Position [Right Arm] Pulse Oximetry 95 93 93 Oxygen Delivery Method Sepsis Recent Fever Within 48 Hours Sepsis New/Unexplained Change in Mental Status Sepsis Action Taken by Nursing Physical Exam GENERAL: Distressed EYES: Conjunctivae and EOM are normal. Pupils are equal, round, and reactive to light. Right eye exhibits no discharge. Left eye exhibits no discharge. No scleral icterus. NECK: Normal range of motion. Neck supple. No JVD present. No spinous process tenderness present. No carotid bruit present. No rigidity. No tracheal deviation and normal range of motion present. No Brudzinski's sign and no Kernig's sign noted. CV: Normal rate, regular rhythm, normal heart sounds and intact distal pulses. There is no peripheral edema. Palpable radial pulses bue. PULM/CHEST: Effort normal and breath sounds normal. No respiratory distress. No stridor. She has no wheezes. She has no rales. -Chest Wall: She exhibits no tenderness. ABD: The abdomen is soft. Bowel sounds are normal. She has no distension. No mass is present. There is no tenderness. There is no rebound, no guarding, no Baker's sign and no tenderness at McBurney's point. Rovsig negative MUSC/SKEL: Normal range of motion. There is no peripheral edema, tenderness or deformity. LYMPH: No cervical adenopathy. NEURO: No facial droop. Weakness of the bilateral lower extremities. Mild aphasia. Mild dysarthria. Course Course 1417: The patient was evaluated in CT. A focused history and physical exam was performed. Code stroke was called from the field. 1430: The patient was evaluated in room A1. A complete history and physical exam was performed Cardiac monitoring: An order was placed for continuous cardiac monitoring. The monitor shows a rate of 70 with sinus rhythm On return to room patient is less aphasic and less dysarthric. She is also able to move her extremities. Patient is not a tPA candidate given her symptoms have been going on since 0700 and her symptoms have improved greatly. 1600: Patient's speech is greatly improved. Labs are within normal limits with the exception of magnesium of 1.5. Magnesium repletion has begun in the em ergency department. Imaging within normal limits. Patient will be admitted to the [facility] hospitalist team Dr. Owen notified Administered Medications Fluticasone/Vilanterol (Fluticasone/Vilanterol 200/25mcg 14 Puffs/Inhaler) 1 puffs INH DAILY KARLA Stop: 04/20/22 18:05 Last Admin: 03/21/22 20:32 Dose: 1 puffs Documented by: [id number] Heparin Sodium (Porcine) (Heparin Sod 5,000 Unit/0.5 Ml Vial) 5,000 units SQ Q12 KARLA Stop: 04/20/22 20:59 Last Admin: 03/21/22 20:26 Dose: 5,000 units Documented by: [id number] Hydroxychloroquine Sulfate (Hydroxychloroquine Sulfate 200 Mg Tab) 200 mg PO HS KARLA Stop: 04/20/22 20:59 Last Admin: 03/21/22 20:28 Dose: 200 mg Documented by: [id number] Sodium Chloride (Nss 1000ml) 1,000 mls @ 80 mls/hr IV .[id number] KARLA Stop: 03/22/22 06:35 Last Admin: 03/21/22 20:14 Dose: 80 mls/hr Documented by: [id number] Insulin Aspart (Insulin Aspart Per Unit) 0 units [facility] Stop: 04/20/22 20:59 Last Admin: 03/21/22 20:44 Dose: 1 units Documented by: [id number] Cosigned by: [id number] Latanoprost (Latanoprost 0.005% Op Soln 2.5 Ml Btl) 1 drops OP [facility] Stop: 04/20/22 20:59 Last Admin: 03/21/22 20:29 Dose: 1 drops Documented by: [id number] Metoprolol Succinate (Metoprolol Succ 50mg Ext Rel Tab) 50 mg PO [facility] Stop: 04/20/22 18:05 Last Admin: 03/21/22 20:28 Dose: 50 mg Documented by: [id number] Montelukast Sodium (Montelukast Sodium 10 Mg Tablet) 10 mg PO [facility] Stop: 04/20/22 20:59 Last Admin: 03/21/22 20:29 Dose: 10 mg Documented by: [id number] Prednisone (Prednisone 5 Mg Tab) 5 mg PO [facility] Stop: 04/20/22 18:05 Last Admin: 03/21/22 20:27 Dose: 5 mg Documented by: [id number] Rosuvastatin Calcium (Rosuvastatin Calcium 10 Mg Tab) 10 mg PO [facility] Stop: 04/20/22 18:05 Last Admin: 03/21/22 20:28 Dose: 10 mg Documented by: [id number] Discontinued Medications Aspirin (Aspirin 81 Mg Chew) 324 mg PO NOW STA Stop: 03/21/22 17:02 Last Admin: 03/21/22 17:18 Dose: 324 mg Documented by: [id number] Magnesium Sulfate/Dextrose (Magnesium Sulfate / D5w) 1 gm in 100 mls @ 100 mls/hr IV NOW STA Stop: 03/21/22 16:21 Last Infusion: 03/21/22 16:50 Dose: 0 mls/hr Documented by: [id number] Admin: 03/21/22 15:49 Dose: 100 mls/hr Documented by: [id number] Ioversol (Optiray 320 125ml) 119 ml IV ONCE ONE Stop: 03/21/22 14:18 Last Admin: 03/21/22 14:23 Dose: 119 ml Documented by: [id number] Potassium Chloride (Potassium Chloride Crtab 20 Meq Tabcr) 20 meq PO NOW STA Stop: 03/21/22 17:34 Last Admin: 03/21/22 18:39 Dose: 20 meq Documented by: [id number] Medical Decision Making Laboratory Data Result diagrams: 03/21/22 14:34 03/21/22 14:34 Lab Results 03/21/22 03/21/22 03/21/22 Range/Units 14:30 14:34 14:34 WBC 3.63 L (4.8-10.8) K/ul RBC 3.88 L (3.93-5.22) M/uL Hgb 11.3 L (12.0-16.0) g/dl Hct 33.4 L (34.1-44.9) % MCV 86.1 (80.0-100.0) fL MCH 29.1 (25.0-34.0) pg MCHC 33.8 (32.0-36.0) g/dL RDW Std Deviation 48.1 H (36.4-46.3) fL RDW Coeff of Xochitl 15.3 H (11.5-14.5) % Plt Count 97 L (130-400) K/uL MPV 10.0 (9.4-12.3) fL Immature Gran % (Auto) 0.6 % Neut % (Auto) 44.5 % Lymph % (Auto) 37.5 % [place] % (Auto) 15.7 % Eos % (Auto) 1.4 % Baso % (Auto) 0.3 % Neut # (Auto) 1.62 (1.4-6.5) K/uL Lymph # (Auto) 1.36 (1.2-3.4) K/uL [place] # (Auto) 0.57 (0.24-0.82) K/uL Eos # (Auto) 0.05 (0-0.50) K/uL Baso # (Auto) 0.01 (0-0.2) K/uL Immature Gran # (Auto) 0.02 (0.00-0.02) K/uL PT (9.0-12.0) Seconds INR (0.9-1.1) APTT (21.0-31.0) Seconds PTT Ratio VBG pH (7.36-7.41) VBG pCO2 (38-50) mmHg VBG pO2 mmHg VBG HCO3 mmol/L VBG O2 Saturation % VBG Base Excess mEq/L Sodium (136-145) mmol/L Potassium (3.5-5.1) mmol/L Chloride (98-107) mmol/L Carbon Dioxide (21-32) mmol/L Anion Gap (3-11) BUN (6-23) mg/dl Creatinine (0.6-1.2) mg/dl Est Cr Clr Drug Dosing ml/min Est GFR ( Amer) ml/min Est GFR (Non-Af Amer) ml/min BUN/Creatinine Ratio (10-20) Glucose (70-99(Fasting)) mg/dl POC Glucose 148 H (70-99) mg/dl Lactate (0.4-2.0) mmol/L Calcium (8.5-10.1) mg/dl Magnesium (1.7-2.4) mg/dl Total Bilirubin (0.2-1.0) mg/dl AST (13-39) U/L ALT (7-52) U/L Alkaline Phosphatase (34-104) U/L Ammonia (18-72) umol/L Troponin I High Sens (0-14) pg/ml Total Protein (6.0-8.3) gm/dl Albumin (3.4-5.0) gm/dl Globulin (2.5-4.0) gm/dl Albumin/Globulin Ratio (0.9-2) Urine Color Urine Appearance (Clear) Urine pH (4.5-7.5) Ur Specific [place] (1.000-1.030) Urine Protein (Negative) Urine Glucose (UA) (Negative) Urine Ketones (Negative) Urine Blood (Negative) Urine Nitrite (Negative) Urine Bilirubin (Negative) Urine Urobilinogen (Negative) Ur Leukocyte Esterase (Negative) SARS-CoV-2, RNA, NAAT (NEGATIVE) Blood Type A Negative Antibody Screen NEGATIVE 03/21/22 03/21/22 03/21/22 Range/Units 14:34 14:34 14:34 WBC (4.8-10.8) K/ul RBC (3.93-5.22) M/uL Hgb (12.0-16.0) g/dl Hct (34.1-44.9) % MCV (80.0-100.0) fL MCH (25.0-34.0) pg MCHC (32.0-36.0) g/dL RDW Std Deviation (36.4-46.3) fL RDW Coeff of Xochitl (11.5-14.5) % Plt Count (130-400) K/uL MPV (9.4-12.3) fL Immature Gran % (Auto) % Neut % (Auto) % Lymph % (Auto) % [place] % (Auto) % Eos % (Auto) % Baso % (Auto) % Neut # (Auto) (1.4-6.5) K/uL Lymph # (Auto) (1.2-3.4) K/uL [place] # (Auto) (0.24-0.82) K/uL Eos # (Auto) (0-0.50) K/uL Baso # (Auto) (0-0.2) K/uL Immature Gran # (Auto) (0.00-0.02) K/uL PT 11.1 (9.0-12.0) Seconds INR 1.0 (0.9-1.1) APTT 27.8 (21.0-31.0) Seconds PTT Ratio 1.0 VBG pH (7.36-7.41) VBG pCO2 (38-50) mmHg VBG pO2 mmHg VBG HCO3 mmol/L VBG O2 Saturation % VBG Base Excess mEq/L Sodium 132 L (136-145) mmol/L Potassium 3.2 L (3.5-5.1) mmol/L Chloride 99 (98-107) mmol/L Carbon Dioxide 26 (21-32) mmol/L Anion Gap 7 (3-11) BUN 24 H (6-23) mg/dl Creatinine 1.37 H (0.6-1.2) mg/dl Est Cr Clr Drug Dosing 33.7 ml/min Est GFR ( Amer) 43.9 ml/min Est GFR (Non-Af Amer) 37.9 ml/min BUN/Creatinine Ratio 17.5 (10-20) Glucose 140 H (70-99(Fasting)) mg/dl POC Glucose (70-99) mg/dl Lactate (0.4-2.0) mmol/L Calcium 8.3 L (8.5-10.1) mg/dl Magnesium 1.5 L (1.7-2.4) mg/dl Total Bilirubin 0.5 (0.2-1.0) mg/dl AST 37 (13-39) U/L ALT 14 (7-52) U/L Alkaline Phosphatase 66 (34-104) U/L Ammonia 42.0 (18-72) umol/L Troponin I High Sens 22.0 H (0-14) pg/ml Total Protein 5.5 L (6.0-8.3) gm/dl Albumin 2.6 L (3.4-5.0) gm/dl Globulin 2.9 (2.5-4.0) gm/dl Albumin/Globulin Ratio 0.9 (0.9-2) Urine Color Urine Appearance (Clear) Urine pH (4.5-7.5) Ur Specific [place] (1.000-1.030) Urine Protein (Negative) Urine Glucose (UA) (Negative) Urine Ketones (Negative) Urine Blood (Negative) Urine Nitrite (Negative) Urine Bilirubin (Negative) Urine Urobilinogen (Negative) Ur Leukocyte Esterase (Negative) SARS-CoV-2, RNA, NAAT (NEGATIVE) Blood Type Antibody Screen 03/21/22 03/21/22 03/21/22 Range/Units 14:34 14:35 14:49 WBC (4.8-10.8) K/ul RBC (3.93-5.22) M/uL Hgb (12.0-16.0) g/dl Hct (34.1-44.9) % MCV (80.0-100.0) fL MCH (25.0-34.0) pg MCHC (32.0-36.0) g/dL RDW Std Deviation (36.4-46.3) fL RDW Coeff of Xochitl (11.5-14.5) % Plt Count (130-400) K/uL MPV (9.4-12.3) fL Immature Gran % (Auto) % Neut % (Auto) % Lymph % (Auto) % [place] % (Auto) % Eos % (Auto) % Baso % (Auto) % Neut # (Auto) (1.4-6.5) K/uL Lymph # (Auto) (1.2-3.4) K/uL [place] # (Auto) (0.24-0.82) K/uL Eos # (Auto) (0-0.50) K/uL Baso # (Auto) (0-0.2) K/uL Immature Gran # (Auto) (0.00-0.02) K/uL PT (9.0-12.0) Seconds INR (0.9-1.1) APTT (21.0-31.0) Seconds PTT Ratio VBG pH 7.38 (7.36-7.41) VBG pCO2 46 (38-50) mmHg VBG pO2 30 mmHg VBG HCO3 27 mmol/L VBG O2 Saturation < 60.0 % VBG Base Excess 1.5 mEq/L Sodium (136-145) mmol/L Potassium (3.5-5.1) mmol/L Chloride (98-107) mmol/L Carbon Dioxide (21-32) mmol/L Anion Gap (3-11) BUN (6-23) mg/dl Creatinine (0.6-1.2) mg/dl Est Cr Clr Drug Dosing ml/min Est GFR ( Amer) ml/min Est GFR (Non-Af Amer) ml/min BUN/Creatinine Ratio (10-20) Glucose (70-99(Fasting)) mg/dl POC Glucose (70-99) mg/dl Lactate 2.0 (0.4-2.0) mmol/L Calcium (8.5-10.1) mg/dl Magnesium (1.7-2.4) mg/dl Total Bilirubin (0.2-1.0) mg/dl AST (13-39) U/L ALT (7-52) U/L Alkaline Phosphatase (34-104) U/L Ammonia (18-72) umol/L Troponin I High Sens (0-14) pg/ml Total Protein (6.0-8.3) gm/dl Albumin (3.4-5.0) gm/dl Globulin (2.5-4.0) gm/dl Albumin/Globulin Ratio (0.9-2) Urine Color Yellow Urine Appearance Clear (Clear) Urine pH 5.5 (4.5-7.5) Ur Specific [place] 1.018 (1.000-1.030) Urine Protein Negative (Negative) Urine Glucose (UA) Negative (Negative) Urine Ketones Negative (Negative) Urine Blood Negative (Negative) Urine Nitrite Negative (Negative) Urine Bilirubin Negative (Negative) Urine Urobilinogen Negative (Negative) Ur Leukocyte Esterase Negative (Negative) SARS-CoV-2, RNA, NAAT (NEGATIVE) Blood Type Antibody Screen 03/21/22 Range/Units 15:55 WBC (4.8-10.8) K/ul RBC (3.93-5.22) M/uL Hgb (12.0-16.0) g/dl Hct (34.1-44.9) % MCV (80.0-100.0) fL MCH (25.0-34.0) pg MCHC (32.0-36.0) g/dL RDW Std Deviation (36.4-46.3) fL RDW Coeff of Xochitl (11.5-14.5) % Plt Count (130-400) K/uL MPV (9.4-12.3) fL Immature Gran % (Auto) % Neut % (Auto) % Lymph % (Auto) % [place] % (Auto) % Eos % (Auto) % Baso % (Auto) % Neut # (Auto) (1.4-6.5) K/uL Lymph # (Auto) (1.2-3.4) K/uL [place] # (Auto) (0.24-0.82) K/uL Eos # (Auto) (0-0.50) K/uL Baso # (Auto) (0-0.2) K/uL Immature Gran # (Auto) (0.00-0.02) K/uL PT (9.0-12.0) Seconds INR (0.9-1.1) APTT (21.0-31.0) Seconds PTT Ratio VBG pH (7.36-7.41) VBG pCO2 (38-50) mmHg VBG pO2 mmHg VBG HCO3 mmol/L VBG O2 Saturation % VBG Base Excess mEq/L Sodium (136-145) mmol/L Potassium (3.5-5.1) mmol/L Chloride (98-107) mmol/L Carbon Dioxide (21-32) mmol/L Anion Gap (3-11) BUN (6-23) mg/dl Creatinine (0.6-1.2) mg/dl Est Cr Clr Drug Dosing ml/min Est GFR ( Amer) ml/min Est GFR (Non-Af Amer) ml/min BUN/Creatinine Ratio (10-20) Glucose (70-99(Fasting)) mg/dl POC Glucose (70-99) mg/dl Lactate (0.4-2.0) mmol/L Calcium (8.5-10.1) mg/dl Magnesium (1.7-2.4) mg/dl Total Bilirubin (0.2-1.0) mg/dl AST (13-39) U/L ALT (7-52) U/L Alkaline Phosphatase (34-104) U/L Ammonia (18-72) umol/L Troponin I High Sens (0-14) pg/ml Total Protein (6.0-8.3) gm/dl Albumin (3.4-5.0) gm/dl Globulin (2.5-4.0) gm/dl Albumin/Globulin Ratio (0.9-2) Urine Color Urine Appearance (Clear) Urine pH (4.5-7.5) Ur Specific [place] (1.000-1.030) Urine Protein (Negative) Urine Glucose (UA) (Negative) Urine Ketones (Negative) Urine Blood (Negative) Urine Nitrite (Negative) Urine Bilirubin (Negative) Urine Urobilinogen (Negative) Ur Leukocyte Esterase (Negative) SARS-CoV-2, RNA, NAAT NEGATIVE (NEGATIVE) Blood Type Antibody Screen Imaging Data Radiologist's Impression: Chest X-Ray 03/21/22 14:12 XR chest 1V portable HISTORY: 76 years-old Female Stroke Like Symptoms acute strokelike symptoms COMPARISON: 10/03/2021 TECHNIQUE: Portable AP view of the chest FINDINGS: The cardiac silhouette is enlarged. Atherosclerosis of the aorta. No pneumothorax, pleural effusion or lobar airspace consolidation. Mild chronic diffuse interstitial coarsening. Degenerative changes of the spine and left shoulder. Reverse right shoulder total joint arthroplasty. IMPRESSION: Cardiomegaly without acute process. ACT 112: Negative or not required by law. The above report was generated using voice recognition software. It may contain grammatical, syntax or spelling errors. Electronically signed by: Brant Mccoy M.D. 03/21/2022 3:[address] 03/21/22 14:[address] OF THE BRAIN; CT ANGIOGRAM OF THE BRAIN; CT ANGIOGRAM OF THE NECK CLINICAL HISTORY: Strokelike symptoms. COMPARISON STUDY: CT of the brain dated 09/06/2021. TECHNIQUE: Unenhanced axial CT scan of the brain is performed. Subsequently, following the IV administration of 119 of Optiray 320, CT angiogram of the head and neck was performed from the aortic arch to the vertex. Images are reviewed in the axial, sagittal, and coronal planes. 3-D MIPS images are created and assessed. IV contrast was administered without complication. All measurements were calculated based on NASCET criteria. A dose lowering technique was utilized adhering to the principles of ALARA. CT DOSE: 1395.13 mGy.cm FINDINGS: Brain parenchyma: There is age-related involutional change noting mild-to- moderate subcortical and periventricular microangiopathic disease. There is no hemorrhage, mass effect, or evidence of acute territorial ischemia by CT criteria. There is no evidence of enhancing mass lesion on the angiogram phase images. The ventricles, sulci, and cisterns are prominent secondary to involutional change. Lai-white matter differentiation is preserved. No extra- axial fluid collection is seen. Thoracic aorta: There is atherosclerotic calcification of the thoracic aorta. Visualized portions of the thoracic aorta are normal in caliber. The aortic arch demonstrates standard 3-vessel anatomy. Right carotid arterial system: The right common carotid artery is patent, as are the right internal and external carotid arteries. Calcified plaque is noted in the carotid bulb. This causes less than 50% luminal narrowing at the origin of the internal carotid artery. Left carotid arterial system: The left common carotid artery is widely patent, as are the left internal and external carotid arteries. Calcified plaque is seen in the carotid bulb. Vertebral arteries: The vertebral arteries are widely patent bilaterally noting left-sided dominance. Subclavian arteries: Widely patent bilaterally. Intracranial vasculature: There is atherosclerotic calcification of the cavernous carotid and vertebral arteries. The [place] is developmentally complete. The internal carotid arteries are patent at the skull base, as are the anterior and middle cerebral arteries bilaterally. The vertebrobasilar system and posterior cerebral arteries are widely patent. The left vertebral artery is dominant. There is no aneurysm, high-grade stenosis, or focal vessel cut off seen throughout the intracranial circulation. Jugular veins: Patent bilaterally. Dural sinuses: Patent. Lung apices: Partially visualized upper lobe lung parenchyma appears clear. Soft tissues: The visualized pharyngeal soft tissues are normal in appearance no ting angiographic phase technique. The oropharyngeal airway appears widely patent. The left lobe of the thyroid is atrophic versus surgically absent. The salivary glands are normal in appearance. No cervical lymphadenopathy is seen. Skeletal structures: The skeletal structures are osteopenic. The calvarium appears intact. The cervical spine is maintained noting multilevel spondylosis. No lytic or blastic lesion is seen. A right shoulder arthroplasty is in place. Advanced arthritic change is seen in the left shoulder. Orbits: The bony orbits are intact. Orbital contents are normal as visualized noting bilateral ocular lens implants. Sinuses and mastoids: The paranasal sinuses are clear. The mastoid air cells are well pneumatized. IMPRESSION: 1. There is no hemorrhage, mass effect, or evidence of acute territorial ischemia by CT criteria. 2. Unremarkable CT angiogram of the brain. 3. Unremarkable CT angiogram of the neck noting atherosclerotic calcification of the carotid bulbs. ACT 112: Negative or not required by law. Electronically signed by: Brigido Gutierrez M.D. 03/21/2022 2:41 PM Head CTA 03/21/22 14:[address] OF THE BRAIN; CT ANGIOGRAM OF THE BRAIN; CT ANGIOGRAM OF THE NECK CLINICAL HISTORY: Strokelike symptoms. COMPARISON STUDY: CT of the brain dated 09/06/2021. TECHNIQUE: Unenhanced axial CT scan of the brain is performed. Subsequently, following the IV administration of 119 of Optiray 320, CT angiogram of the head and neck was performed from the aortic arch to the vertex. Images are reviewed in the axial, sagittal, and coronal planes. 3-D MIPS images are created and assessed. IV contrast was administered without complication. All measurements were calculated based on NASCET criteria. A dose lowering technique was utilized adhering to the principles of ALARA. CT DOSE: 1395.13 mGy.cm FINDINGS: Brain parenchyma: There is age-related involutional change noting [id number] subcortical and periventricular microangiopathic disease. There is no hemorrhage, mass effect, or evidence of acute territorial ischemia by CT criteria. There is no evidence of enhancing mass lesion on the angiogram phase images. The ventricles, sulci, and cisterns are prominent secondary to involutional change. Lai-white matter differentiation is preserved. No extra- axial fluid collection is seen. Thoracic aorta: There is atherosclerotic calcification of the thoracic aorta. Visualized portions of the thoracic aorta are normal in caliber. The aortic arch demonstrates standard 3-vessel anatomy. Right carotid arterial system: The right common carotid artery is patent, as are the right internal and external carotid arteries. Calcified plaque is noted in the carotid bulb. This causes less than 50% luminal narrowing at the origin of the internal carotid artery. Left carotid arterial system: The left common carotid artery is widely patent, as are the left internal and external carotid arteries. Calcified plaque is seen in the carotid bulb. Vertebral arteries: The vertebral arteries are widely patent bilaterally noting left-sided dominance. Subclavian arteries: Widely patent bilaterally. Intracranial vasculature: There is atherosclerotic calcification of the cavernous carotid and vertebral arteries. The [place] is developmentally complete. The internal carotid arteries are patent at the skull base, as are the anterior and middle cerebral arteries bilaterally. The vertebro basilar system and posterior cerebral arteries are widely patent. The left vertebral artery is dominant. There is no aneurysm, high-grade stenosis, or focal vessel cut off seen throughout the intracranial circulation. Jugular veins: Patent bilaterally. Dural sinuses: Patent. Lung apices: Partially visualized upper lobe lung parenchyma appears clear. Soft tissues: The visualized pharyngeal soft tissues are normal in appearance noting angiographic phase technique. The oropharyngeal airway appears widely patent. The left lobe of the thyroid is atrophic versus surgically absent. The salivary glands are normal in appearance. No cervical lymphadenopathy is seen. Skeletal structures: The skeletal structures are osteopenic. The calvarium appears intact. The cervical spine is maintained noting multilevel spondylosis. No lytic or blastic lesion is seen. A right shoulder arthroplasty is in place. Advanced arthritic change is seen in the left shoulder. Orbits: The bony orbits are intact. Orbital contents are normal as visualized noting bilateral ocular lens implants. Sinuses and mastoids: The paranasal sinuses are clear. The mastoid air cells are well pneumatized. IMPRESSION: 1. There is no hemorrhage, mass effect, or evidence of acute territorial ischemia by CT criteria. 2. Unremarkable CT angiogram of the brain. 3. Unremarkable CT angiogram of the neck noting atherosclerotic calcification of the carotid bulbs. ACT 112: Negative or not required by law. Electronically signed by: Brigido Gutierrez M.D. 03/21/2022 2:41 PM Neck CTA 03/21/22 14:[address] OF THE BRAIN; CT ANGIOGRAM OF THE BRAIN; CT ANGIOGRAM OF THE NECK CLINICAL HISTORY: Strokelike symptoms. COMPARISON STUDY: CT of the brain dated 09/06/2021. TECHNIQUE: Unenhanced axial CT scan of the brain is performed. Subsequently, following the IV administration of 119 of Optiray 320, CT angiogram of the head and neck was performed from the aortic arch to the vertex. Images are reviewed in the axial, sagittal, and coronal planes. 3-D MIPS images are created and assessed. IV contrast was administered without complication. All measurements were calculated based on NASCET criteria. A dose lowering technique was utilized adhering to the principles of ALARA. CT DOSE: 1395.13 mGy.cm FINDINGS: Brain parenchyma: There is age-related involutional change noting [id number] subcortical and periventricular microangiopathic disease. There is no hemorrhage, mass effect, or evidence of acute territorial ischemia by CT criteria. There is no evidence of enhancing mass lesion on the angiogram phase images. The ventricles, sulci, and cisterns are prominent secondary to involutional change. Lai-white matter differentiation is preserved. No extra- axial fluid collection is seen. Thoracic aorta: There is atherosclerotic calcification of the thoracic aorta. Visualized portions of the thoracic aorta are normal in caliber. The aortic arch demonstrates standard 3-vessel anatomy. Right carotid arterial system: The right common carotid artery is patent, as are the right internal and external carotid arteries. Calcified plaque is noted in the carotid bulb. This causes less than 50% luminal narrowing at the origin of the internal carotid artery. Left carotid arterial system: The left common carotid artery is widely patent, as are the left internal and external carotid arteries. Calcified plaque is seen in the carotid bulb. Vertebral arteries: The vertebral arteries are widely patent bilaterally noting left-sided dominance. Subclavian arteries: Widely patent bilaterally. Intracranial vasculature: There is atherosclerotic calcification of the cavernous carotid and vertebral arteries. The [place] is developmentally complete. The internal carotid arteries are patent at the skull base, as are the anterior and middle cerebral arteries bilaterally. The vertebrobasilar system and posterior cerebral arteries are widely patent. The left vertebral artery is dominant. There is no aneurysm, high-grade stenosis, or focal vessel cut off seen throughout the intracranial circulation. Jugular veins: Patent bilaterally. Dural sinuses: Patent. Lung apices: Partially visualized upper lobe lung parenchyma appears clear. Soft tissues: The visualized pharyngeal soft tissues are normal in appearance noting angiographic phase technique. The oropharyngeal airway appears widely patent. The left lobe of the thyroid is atrophic versus surgically absent. The salivary glands are normal in appearance. No cervical lymphadenopathy is seen. Skeletal structures: The skeletal structures are osteopenic. The calvarium appears intact. The cervical spine is maintained noting multilevel spondylosis. No lytic or blastic lesion is seen. A right shoulder arthroplasty is in place. Advanced arthritic change is seen in the left shoulder. Orbits: The bony orbits are intact. Orbital contents are normal as visualized noting bilateral ocular lens implants. Sinuses and mastoids: The paranasal sinuses are clear. The mastoid air cells are well pneumatized. IMPRESSION: 1. There is no hemorrhage, mass effect, or evidence of acute territorial ischemia by CT criteria. 2. Unremarkable CT angiogram of the brain. 3. Unremarkable CT angiogram of the neck noting atherosclerotic calcification of the carotid bulbs. ACT 112: Negative or not required by law. Electronically signed by: Brigido Gutierrez M.D. 03/21/2022 2:41 PM ECG Data Indication: + weakness Rate (beats per minute): 80 Rhythm: + normal sinus ECG Intervals/blocks: + Right Bundle branch block, + Normal TN and + Normal QT-c ECG ST segments: + Normal ST segments Additional Comments: QRS 152 MDM Narrative 1417: The patient was evaluated in CT. A focused history and physical exam was performed. Code stroke was called from the field. 1430: The patient was evaluated in room A1. A complete history and physical exam was performed Cardiac monitoring: An order was placed for continuous cardiac monitoring. The monitor shows a rate of 70 with sinus rhythm On return to room patient is less aphasic and less dysarthric. She is also able to move her extremities. Patient is not a tPA candidate given her symptoms have been going on since 0700 and her symptoms have improved greatly. 1600: Patient's speech is greatly improved. Labs are within normal limits with the exception of magnesium of 1.5. Magnesium repletion has begun in the emergency department. Imaging within normal limits. [facility] notified Impression & Plan TIA (transient ischemic attack), Hypomagnesemia Discharge Plan Visit Data Chief Complaint: Altered Mental Status Stated Complaint: stroke alert Discharge Problem: TIA (transient ischemic attack), Hypomagnesemia Patient Disposition: Admitted As Inpatient Discharge Instructions Interventions: ED Discharge Assessment Last Done: 03/21/22 18:26
[2022-03-21] MEDS ORDERED: CLOPIDOGREL BISULFATE 75 MG TAB PO ONE (21:58)
--- NOTE | 2022-03-21 22:00 | Magnetic Resonance Report ---
MR brain wo con CLINICAL HISTORY: stroke like symptoms TECHNIQUE: Multiplanar and multisequence MR images of the brain were obtained without intravenous con trast. Comparison: Comparison is made to MRI brain 11/12/2019 FINDINGS: There is a focus of restricted diffusion in the left putamen. There is a small amount of associated e angelo. Foci of T2 and FLAIR hyperintensity are noted in the paraventricular areas consistent with [place]is small vessel ischemic disease. Ex vacuo ventriculomegaly and sulcal enlargement is noted compatib le with diffuse encephalomalacia. No mass is seen. There is no mass effect or midline shift. A focus of hemosiderin deposition is seen in the right lentiform nucleus. No extra axial fluid collections ar e seen. The corpus callosum, pituitary gland, and cerebellar tonsils appear grossly unremarkable. Flow voids of the major intracranial arterial vessels are identified. Mild mastoid air cell opacifica tion is seen bilaterally. IMPRESSION: Acute infarct in the left putamen with associated soft tissue swelling. No midline shift or hemorrhag ic transformation is seen. A call was placed with the patient's provider Dr. Urias at the time of dictation. ACT 112: Negative or not required by law. Electronically signed by: Jose Morton M.D. 03/21/2022 9:58 PM
--- NOTE | 2022-03-21 22:01 | Communication Note ---
Date of Service: March 21, 2022 Made aware by radiologist off MRI result. Acute infarct in the left putamen with associated soft tissue swelling. No midline shift or hemorrhagic transformation is seen. AP Acute CVA Possible aspirin failure Change to full admission Add Plavix to antiplatelet regimen Will relay to AM provider.
--- NOTE | 2022-03-21 23:51 | Electrocardiogram Report ---
Test Reason : Blood Pressure : / mmHG Vent. Rate : 080 BPM Atrial Rate : 080 BPM P-R Int : 184 ms QRS Dur : 152 ms QT Int : 424 ms P-R-T Axes : 000 029 -32 degrees QTc Int : 489 ms Normal sinus rhythm Right bundle branch block Inferior infarct , age undetermined T wave abnormality, consider inferolateral ischemia Abnormal ECG When compared with ECG of 03-OCT-2021 15:06, Inferior infarct is now Present T wave inversion now evident in Inferolateral leads Confirmed by Pawan Mcgowan ([id number]) on 03/21/2022 11:51:37 PM Referred By: REFERRED SELF Confirmed By:Pawan Mcgowan
[2022-03-22 07:13] LABS: Hematocrit (blood only) 35.9 % (34.1-44.9); Hemoglobin 11.9 g/dl (12.0-16.0); Mean Corpuscular Hemoglobin 28.1 pg (25.0-34.0); Mean Corpuscular Hgb Conc 33.1 g/dL (32.0-36.0); Mean Corpuscular Volume 84.7 fL (80.0-100.0); Mean Platelet Volume 10.2 fL (9.4-12.3); Platelet Count 102 K/uL (130-400); RDW Coefficient of Variation 15.6 % (11.5-14.5); RDW Standard Deviation 47.7 fL (36.4-46.3); Red Blood Count 4.24 M/uL (3.93-5.22); White Blood Count 2.48 K/ul (4.8-10.8)
[2022-03-22 07:44] LABS: Troponin I High Sensitivity 23.5 pg/ml (0-14)
[2022-03-22 07:47] LABS: Estimated Average Glucose 137 mg/dl; Hemoglobin A1C 6.4 % (4.5-5.6)
[2022-03-22 08:15] LABS: BUN Creatinine Ratio 19.3 (10-20); Calcium 8.6 mg/dl (8.5-10.1); Chol HDL Ratio 3.5 (0-5); Est GFR (African American) 42.8 ml/min; Est GFR (Non-African American) 36.9 ml/min; Magnesium 2.2 mg/dl (1.7-2.4); Potassium 5.1 mmol/L (3.5-5.1)
[2022-03-22] MEDS: INSULIN ASPART PER UNIT SC SCH ×4 (08:41→20:51)
[2022-03-22 08:45] LABS: ALC (manual) 1.46 K/uL (1.2-3.4); ANC (manual) 0.79 K/uL (1.4-6.5); Lymphocytes # (manual) 1.46 K/uL (1.2-3.4); Lymphocytes % (manual) 59 %; Monocytes # (manual) 0.22 K/uL (0.24-0.82); Monocytes % (manual) 9 %; Neutrophils # (manual) 0.79 K/uL (1.4-6.5); Neutrophils % (manual) 32 %
[2022-03-22] MEDS: ROSUVASTATIN CALCIUM 10 MG TAB PO SCH (08:48)
[2022-03-22] MEDS: DULoxetine HCL 60 MG CAP PO SCH (08:48)
[2022-03-22] MEDS: predniSONE 5 MG TAB PO SCH (08:48)
[2022-03-22] MEDS: FLUTICASONE/VILANTEROL 200/25MCG 14 PUFFS/INHALER INH SCH (08:48)
[2022-03-22] MEDS: ASPIRIN 81 MG ECTAB PO SCH (08:48)
[2022-03-22] MEDS: PANTOprazole 40 MG TAB PO SCH (08:48)
[2022-03-22] MEDS: CLOPIDOGREL BISULFATE 75 MG TAB PO SCH (08:48)
[2022-03-22] MEDS: FOLIC ACID 1 MG TAB PO SCH (08:48)
[2022-03-22] MEDS: THIAMINE HCL 50 MG TABLET PO SCH (08:49)
[2022-03-22] MEDS: RASPBERRY SYRUP 5 ML UDP PO SCH (08:49)
[2022-03-22] MEDS: METOPROLOL SUCC 50MG EXT REL TAB PO SCH (08:49)
[2022-03-22] MEDS: VANCOMYCIN HCL 125 MG/2.5ML SOLN PO SCH (08:49)
--- NOTE | 2022-03-22 12:24 | Electrocardiogram Report ---
Test Reason : Blood Pressure : / mmHG Vent. Rate : 055 BPM Atrial Rate : 055 BPM P-R Int : 176 ms QRS Dur : 086 ms QT Int : 486 ms P-R-T Axes : -10 -05 -30 degrees QTc Int : 464 ms Sinus bradycardia Low voltage QRS Nonspecific ST and T wave abnormality Right bundle branch block Abnormal ECG When compared with ECG of 21-MAR-2022 14:36, Criteria for Inferior infarct are no longer Present Confirmed by Tesfaye Singh ([id number]) on 03/22/2022 12:24:12 PM Referred By: REFERRED SELF Confirmed By:Av Singh
[2022-03-22] MEDS: CEROVITE ADV FORMULA TAB PO SCH (12:47)
--- NOTE | 2022-03-22 12:59 | Consultation Report ---
NEUROLOGY CONSULTATION NOTE DATE OF CONSULTATION: 03/22/2022. CHIEF COMPLAINT: Dysarthria and weakness. HISTORY OF PRESENT ILLNESS: A 76-year-old female with a history of coronary artery disease, hyperten kalyani, hyperlipidemia, and type 2 diabetes as well as rheumatoid arthritis, on chronic prednisone and CKD, evaluated in the Emergency Department yesterday for difficulty speaking and weakness. Symptom o nset was noted around noon. She was last known well at 7:00 a.m. yesterday. The patient was aphasic in the ER and unable to move her extremities. During the ER course, her symptoms did improve and sh e started talking. She had some confusion. She underwent CT of the head that showed no hemorrhage, m ass effect or acute ischemia. She underwent CTA head and neck, which was unremarkable. She was admi tted for possible TIA versus cerebrovascular accident. Neurology was consulted upon admission. ALLERGIES: METHOTREXATE, PENICILLIN, RANITIDINE. HOME MEDICATIONS: Duloxetine, folic acid, hydroxychloroquine, prednisone 5 mg, albuterol, vitamin B1 2, vitamin A, multivitamin, Crestor 10 mg, aspirin 81 mg, montelukast, Tylenol as needed, metoprolol, Protonix, thiamine, vancomycin. PAST MEDICAL HISTORY: Hyponatremia, asthma, chronic steroid use, CKD, COPD, type 2 diabetes, depress ion, dyslipidemia, gastroparesis, gastroesophageal reflux disease, rheumatoid arthritis, glaucoma, co ronary artery disease, hypertension, non-STEMI, peripheral neuropathy, syncope. PAST SURGICAL HISTORY: Cardiac catheterization, colonoscopy, EGD, hysterectomy, tooth extraction, ov filiberto cyst removal, rotator cuff repair, total knee arthroplasty. FAMILY HISTORY: Father had diabetes. Mother had heart disease and hypertension. SOCIAL HISTORY: She is . She is a nonsmoker, does not use alcohol. She does use a wheelchai r and walker at home. REVIEW OF SYSTEMS: Included speech difficulty, muscle weakness, slurred speech. Otherwise, all othe r review of systems was negative. PHYSICAL EXAMINATION: VITAL SIGNS: Blood pressure 159/68, pulse was 56, respiratory rate 16, temperature is 36.6 degrees C elsius, oxygen saturation 97% on room air. GENERAL: The patient appears stated age, no distress. HEENT: Atraumatic, normocephalic. Eyes are midline. Normal conjunctivae. CARDIAC: Pulses intact. ABDOMEN: Nondistended. LUNGS: Normal respiratory effort. PSYCHIATRIC: Normal mood. NEUROLOGIC: She is awake, alert, oriented to person, place. She is following simple commands. Spee ch is clear. Eyes are midline. Pupils are symmetric. Tongue is midline. Facial sensation intact. No ataxia with [id number] testing. Muscle strength intact. Ambulation deferred. Sensation red uced to light touch in the lower extremities. DIAGNOSTIC TESTING: WBC 2.48, hemoglobin 11.9, platelet count 102. INR is 1.0. Sodium 133, potassi um 3.2, corrected, then to 5.1, chloride 103, carbon dioxide 23, BUN 27, creatinine 1.40, glucose 107 , hemoglobin A1c 6.4. Troponin 23.5, LDL 53. TSH is normal. Urinalysis is negative. COVID-19 is n egative. IMAGING: CT and CTA head and neck showed no acute hemorrhage or acute ischemic infarct. There was n o large vessel occlusion or high-grade stenosis. There was atherosclerotic calcifications in both th e carotid bulbs. MRI of the brain without contrast showed an acute ischemic stroke in the left basal ganglia or putamen with associated soft tissue swelling. There was no midline shift or hemorrhagic transformation. ASSESSMENT AND PLAN: A 76-year-old female with multiple stroke risk factors including type 2 diabete s, hypertension, hyperlipidemia, and prior transient ischemic attack, on aspirin, admitted with an ac [place] left basal ganglia ischemic stroke, likely small vessel in etiology. Recommend dual antiplatelet therapy for 21 days, aspirin 81 mg daily and Plavix 75 mg daily. After 21 days, stop the aspirin an d continue Plavix 75 mg daily. Otherwise, would recommend increasing Crestor to 20 mg daily. LDL ch olesterol is well controlled. Hemoglobin A1c is well controlled. Recommend transthoracic echocardio gram as well as continue telemetry monitoring while inpatient. PT/OT and speech therapy for any reha bilitation needs. The patient will require Neurology followup in 8 weeks. Otherwise, please contact me with any additional questions or concerns. Job ID: [id number]
--- NOTE | 2022-03-22 14:55 | Hospitalist Progress Note ---
Date of Service March 22, 2022 Assessment & Plan (1) Stroke-like symptoms: Plan: Patient is 76 y/o F with PMH CAD, HTN, HLD, DM II, history of C. difficile on chronic vancomycin therapy, ILD, COPD, rheumatoid arthritis on chronic prednisone therapy, CKD III presented to ER for difficulty speaking and generalized weakness noted at noon today. Last well known 7:00am 03/21/22. Upon ER presentation patient unable to move extremities and had aphasia. During ER course patient improving and now able to move extremities and talking. Has some confusion CT Head 03/21: There is no hemorrhage, mass effect, or evidence of acute territorial ischemia CTA Head and neck03/21: Unremarkable CT angiogram of the brain. Unremarkable CT angiogram of the neck noting atherosclerotic calcification of the carotid bulbs. MRI brain 03/21- Acute infarct in the left putamen with associated soft tissue swelling. No midline shift or hemorrhagic transformation is seen. 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 No chest pain. Likely demand ischemia. Continue tele. Echo pending Hypokalemia- resolved with repletion Hypomagnesemia- resolved with repletion CKD III- Cr at baseline of 1.3-1.4 Rheumatoid arthritis- On chronic prednisone 5 mg daily along with hydroxychloroquine hs. Denies any recent flares COPD/ILD- No signs of exacerbation, Continue home inhalers Prediabetes- A1c 6.4. Might benefit from diet modifications and metformin as OP. defer to PCP. SSI prn here. HTN- BP labile. Continue metoprolol succinate. Would consider addition of lisinopril if BP stays high and potassium is improved, otherwise will consider low dose norvasc. History C. difficile- On chronic vancomycin Thrombocytopenia- mild, improving, recheck in am Hyponatremia- mild, improving DVT Prophylaxis- Heparin SQ Dispo- Pending echo and PT eval Updated at bedside Admission and Anticipated Discharge Date Admission Date: March 21, 2022 Subjective Feels much better and closer to her baseline. Now speaking well and strength is back. States she ambulated to the bathroom with help. Tolerating oral intake without issues. States her BP is well controlled and so is her diabetes- she is not requiring any medication for her h/o DM. Physical Exam Physical Exam: General: Lying comfortably in bed, not in distress, on room air HEENT: EOMI, RODOLFO, MMM Chest: Clear breath sounds bilaterally, no wheezes or crackles CVS: Regular rate and rhythm, normal heart sounds, no murmur Abdomen: Soft, non tender, not distended, normal bowel sounds Neuro: Awake, alert, oriented, conversing well, non focal. Strength slightly weak on RLE which she says is baseline. Extremities: No cyanosis, clubbing or edema Results & Data Results & Data ([facility]) Vital Signs (Past 12 Hours) Vital Signs Temp Pulse Pulse Resp BP Pulse Ox 03/22/22 10:00 56 L 03/22/22 07:18 36.6 C 54 L 16 159/68 H 97 03/22/22 04:48 61 03/22/22 04:23 36.6 C 72 16 133/74 96 Laboratory Results Short CBC 03/21/22 03/21/22 03/21/22 Range/Units 14:30 14:34 14:34 WBC 3.63 L (4.8-10.8) K/ul RBC 3.88 L (3.93-5.22) M/uL Hgb 11.3 L (12.0-16.0) g/dl Hct 33.4 L (34.1-44.9) % MCV 86.1 (80.0-100.0) fL MCH 29.1 (25.0-34.0) pg MCHC 33.8 (32.0-36.0) g/dL RDW Std Deviation 48.1 H (36.4-46.3) fL RDW Coeff of Xochitl 15.3 H (11.5-14.5) % Plt Count 97 L (130-400) K/uL MPV 10.0 (9.4-12.3) fL Immature Gran % (Auto) 0.6 % Neut % (Auto) 44.5 % Lymph % (Auto) 37.5 % Turner % (Auto) 15.7 % Eos % (Auto) 1.4 % Baso % (Auto) 0.3 % Neut # (Auto) 1.62 (1.4-6.5) K/uL Lymph # (Auto) 1.36 (1.2-3.4) K/uL Turner # (Auto) 0.57 (0.24-0.82) K/uL Eos # (Auto) 0.05 (0-0.50) K/uL Baso # (Auto) 0.01 (0-0.2) K/uL Immature Gran # (Auto) 0.02 (0.00-0.02) K/uL Neutrophils % (Manual) % Lymphocytes % (Manual) % Monocytes % (Manual) % Neutrophils # (Manual) (1.4-6.5) K/uL Total Absolute Neuts (1.4-6.5) K/uL Lymphocytes # (Manual) (1.2-3.4) K/uL Total Abs Lymphocytes (1.2-3.4) K/uL Monocytes # (Manual) (0.24-0.82) K/uL PT (9.0-12.0) Seconds INR (0.9-1.1) APTT (21.0-31.0) Seconds PTT Ratio VBG pH (7.36-7.41) VBG pCO2 (38-50) mmHg VBG pO2 mmHg VBG HCO3 mmol/L VBG O2 Saturation % VBG Base Excess mEq/L Sodium (136-145) mmol/L Potassium (3.5-5.1) mmol/L Chloride (98-107) mmol/L Carbon Dioxide (21-32) mmol/L Anion Gap (3-11) BUN (6-23) mg/dl Creatinine (0.6-1.2) mg/dl Est Cr Clr Drug Dosing ml/min Est GFR ( Amer) ml/min Est GFR (Non-Af Amer) ml/min BUN/Creatinine Ratio (10-20) Glucose (70-99(Fasting)) mg/dl POC Glucose 148 H (70-99) mg/dl Estimat Average Glucose mg/dl Hemoglobin A1c (4.5-5.6) % Lactate (0.4-2.0) mmol/L Calcium (8.5-10.1) mg/dl Magnesium (1.7-2.4) mg/dl Total Bilirubin (0.2-1.0) mg/dl AST (13-39) U/L ALT (7-52) U/L Alkaline Phosphatase (34-104) U/L Ammonia (18-72) umol/L Troponin I High Sens (0-14) pg/ml Total Protein (6.0-8.3) gm/dl Albumin (3.4-5.0) gm/dl Globulin (2.5-4.0) gm/dl Albumin/Globulin Ratio (0.9-2) Triglycerides (0-150) mg/dl Cholesterol (0-200) mg/dl LDL Cholesterol, Calc mg/dl VLDL Cholesterol, Calc (0-30) mg/dl HDL Cholesterol mg/dl Cholesterol/HDL Ratio (0-5) TSH (0.300-4.500) uIu/ml Urine Color Urine Appearance (Clear) Urine pH (4.5-7.5) Ur Specific Hammond (1.000-1.030) Urine Protein (Negative) Urine Glucose (UA) (Negative) Urine Ketones (Negative) Urine Blood (Negative) Urine Nitrite (Negative) Urine Bilirubin (Negative) Urine Urobilinogen (Negative) Ur Leukocyte Esterase (Negative) SARS-CoV-2, RNA, NAAT (NEGATIVE) Blood Type A Negative Antibody Screen NEGATIVE 03/21/22 03/21/22 03/21/22 Range/Units 14:34 14:34 14:34 WBC (4.8-10.8) K/ul RBC (3.93-5.22) M/uL Hgb (12.0-16.0) g/dl Hct (34.1-44.9) % MCV (80.0-100.0) fL MCH (25.0-34.0) pg MCHC (32.0-36.0) g/dL RDW Std Deviation (36.4-46.3) fL RDW Coeff of Xochitl (11.5-14.5) % Plt Count (130-400) K/uL MPV (9.4-12.3) fL Immature Gran % (Auto) % Neut % (Auto) % Lymph % (Auto) % Turner % (Auto) % Eos % (Auto) % Baso % (Auto) % Neut # (Auto) (1.4-6.5) K/uL Lymph # (Auto) (1.2-3.4) K/uL Turner # (Auto) (0.24-0.82) K/uL Eos # (Auto) (0-0.50) K/uL Baso # (Auto) (0-0.2) K/uL Immature Gran # (Auto) (0.00-0.02) K/uL Neutrophils % (Manual) % Lymphocytes % (Manual) % Monocytes % (Manual) % Neutrophils # (Manual) (1.4-6.5) K/uL Total Absolute Neuts (1.4-6.5) K/uL Lymphocytes # (Manual) (1.2-3.4) K/uL Total Abs Lymphocytes (1.2-3.4) K/uL Monocytes # (Manual) (0.24-0.82) K/uL PT 11.1 (9.0-12.0) Seconds INR 1.0 (0.9-1.1) APTT 27.8 (21.0-31.0) Seconds PTT Ratio 1.0 VBG pH (7.36-7.41) VBG pCO2 (38-50) mmHg VBG pO2 mmHg VBG HCO3 mmol/L VBG O2 Saturation % VBG Base Excess mEq/L Sodium 132 L (136-145) mmol/L Potassium 3.2 L (3.5-5.1) mmol/L Chloride 99 (98-107) mmol/L Carbon Dioxide 26 (21-32) mmol/L Anion Gap 7 (3-11) BUN 24 H (6-23) mg/dl Creatinine 1.37 H (0.6-1.2) mg/dl Est Cr Clr Drug Dosing 33.7 ml/min Est GFR ( Amer) 43.9 ml/min Est GFR (Non-Af Amer) 37.9 ml/min BUN/Creatinine Ratio 17.5 (10-20) Glucose 140 H (70-99(Fasting)) mg/dl POC Glucose (70-99) mg/dl Estimat Average Glucose mg/dl Hemoglobin A1c (4.5-5.6) % Lactate (0.4-2.0) mmol/L Calcium 8.3 L (8.5-10.1) mg/dl Magnesium 1.5 L (1.7-2.4) mg/dl Total Bilirubin 0.5 (0.2-1.0) mg/dl AST 37 (13-39) U/L ALT 14 (7-52) U/L Alkaline Phosphatase 66 (34-104) U/L Ammonia 42.0 (18-72) umol/L Troponin I High Sens 22.0 H (0-14) pg/ml Total Protein 5.5 L (6.0-8.3) gm/dl Albumin 2.6 L (3.4-5.0) gm/dl Globulin 2.9 (2.5-4.0) gm/dl Albumin/Globulin Ratio 0.9 (0.9-2) Triglycerides (0-150) mg/dl Cholesterol (0-200) mg/dl LDL Cholesterol, Calc mg/dl VLDL Cholesterol, Calc (0-30) mg/dl HDL Cholesterol mg/dl Cholesterol/HDL Ratio (0-5) TSH (0.300-4.500) uIu/ml Urine Color Urine Appearance (Clear) Urine pH (4.5-7.5) Ur Specific Hammond (1.000-1.030) Urine Protein (Negative) Urine Glucose (UA) (Negative) Urine Ketones (Negative) Urine Blood (Negative) Urine Nitrite (Negative) Urine Bilirubin (Negative) Urine Urobilinogen (Negative) Ur Leukocyte Esterase (Negative) SARS-CoV-2, RNA, NAAT (NEGATIVE) Blood Type Antibody Screen 03/21/22 03/21/22 03/21/22 Range/Units 14:34 14:35 14:49 WBC (4.8-10.8) K/ul RBC (3.93-5.22) M/uL Hgb (12.0-16.0) g/dl Hct (34.1-44.9) % MCV (80.0-100.0) fL MCH (25.0-34.0) pg MCHC (32.0-36.0) g/dL RDW Std Deviation (36.4-46.3) fL RDW Coeff of Xochitl (11.5-14.5) % Plt Count (130-400) K/uL MPV (9.4-12.3) fL Immature Gran % (Auto) % Neut % (Auto) % Lymph % (Auto) % Turner % (Auto) % Eos % (Auto) % Baso % (Auto) % Neut # (Auto) (1.4-6.5) K/uL Lymph # (Auto) (1.2-3.4) K/uL Turner # (Auto) (0.24-0.82) K/uL Eos # (Auto) (0-0.50) K/uL Baso # (Auto) (0-0.2) K/uL Immature Gran # (Auto) (0.00-0.02) K/uL Neutrophils % (Manual) % Lymphocytes % (Manual) % Monocytes % (Manual) % Neutrophils # (Manual) (1.4-6.5) K/uL Total Absolute Neuts (1.4-6.5) K/uL Lymphocytes # (Manual) (1.2-3.4) K/uL Total Abs Lymphocytes (1.2-3.4) K/uL Monocytes # (Manual) (0.24-0.82) K/uL PT (9.0-12.0) Seconds INR (0.9-1.1) APTT (21.0-31.0) Seconds PTT Ratio VBG pH 7.38 (7.36-7.41) VBG pCO2 46 (38-50) mmHg VBG pO2 30 mmHg VBG HCO3 27 mmol/L VBG O2 Saturation < 60.0 % VBG Base Excess 1.5 mEq/L Sodium (136-145) mmol/L Potassium (3.5-5.1) mmol/L Chloride (98-107) mmol/L Carbon Dioxide (21-32) mmol/L Anion Gap (3-11) BUN (6-23) mg/dl Creatinine (0.6-1.2) mg/dl Est Cr Clr Drug Dosing ml/min Est GFR ( Amer) ml/min Est GFR (Non-Af Amer) ml/min BUN/Creatinine Ratio (10-20) Glucose (70-99(Fasting)) mg/dl POC Glucose (70-99) mg/dl Estimat Average Glucose mg/dl Hemoglobin A1c (4.5-5.6) % Lactate 2.0 (0.4-2.0) mmol/L Calcium (8.5-10.1) mg/dl Magnesium (1.7-2.4) mg/dl Total Bilirubin (0.2-1.0) mg/dl AST (13-39) U/L ALT (7-52) U/L Alkaline Phosphatase (34-104) U/L Ammonia (18-72) umol/L Troponin I High Sens (0-14) pg/ml Total Protein (6.0-8.3) gm/dl Albumin (3.4-5.0) gm/dl Globulin (2.5-4.0) gm/dl Albumin/Globulin Ratio (0.9-2) Triglycerides (0-150) mg/dl Cholesterol (0-200) mg/dl LDL Cholesterol, Calc mg/dl VLDL Cholesterol, Calc (0-30) mg/dl HDL Cholesterol mg/dl Cholesterol/HDL Ratio (0-5) TSH (0.300-4.500) uIu/ml Urine Color Yellow Urine Appearance Clear (Clear) Urine pH 5.5 (4.5-7.5) Ur Specific Hammond 1.018 (1.000-1.030) Urine Protein Negative (Negative) Urine Glucose (UA) Negative (Negative) Urine Ketones Negative (Negative) Urine Blood Negative (Negative) Urine Nitrite Negative (Negative) Urine Bilirubin Negative (Negative) Urine Urobilinogen Negative (Negative) Ur Leukocyte Esterase Negative (Negative) SARS-CoV-2, RNA, NAAT (NEGATIVE) Blood Type Antibody Screen 03/21/22 03/21/22 03/21/22 Range/Units 15:55 20:34 22:15 WBC (4.8-10.8) K/ul RBC (3.93-5.22) M/uL Hgb (12.0-16.0) g/dl Hct (34.1-44.9) % MCV (80.0-100.0) fL MCH (25.0-34.0) pg MCHC (32.0-36.0) g/dL RDW Std Deviation (36.4-46.3) fL RDW Coeff of Xochitl (11.5-14.5) % Plt Count (130-400) K/uL MPV (9.4-12.3) fL Immature Gran % (Auto) % Neut % (Auto) % Lymph % (Auto) % Turner % (Auto) % Eos % (Auto) % Baso % (Auto) % Neut # (Auto) (1.4-6.5) K/uL Lymph # (Auto) (1.2-3.4) K/uL Turner # (Auto) (0.24-0.82) K/uL Eos # (Auto) (0-0.50) K/uL Baso # (Auto) (0-0.2) K/uL Immature Gran # (Auto) (0.00-0.02) K/uL Neutrophils % (Manual) % Lymphocytes % (Manual) % Monocytes % (Manual) % Neutrophils # (Manual) (1.4-6.5) K/uL Total Absolute Neuts (1.4-6.5) K/uL Lymphocytes # (Manual) (1.2-3.4) K/uL Total Abs Lymphocytes (1.2-3.4) K/uL Monocytes # (Manual) (0.24-0.82) K/uL PT (9.0-12.0) Seconds INR (0.9-1.1) APTT (21.0-31.0) Seconds PTT Ratio VBG pH (7.36-7.41) VBG pCO2 (38-50) mmHg VBG pO2 mmHg VBG HCO3 mmol/L VBG O2 Saturation % VBG Base Excess mEq/L Sodium (136-145) mmol/L Potassium (3.5-5.1) mmol/L Chloride (98-107) mmol/L Carbon Dioxide (21-32) mmol/L Anion Gap (3-11) BUN (6-23) mg/dl Creatinine (0.6-1.2) mg/dl Est Cr Clr Drug Dosing ml/min Est GFR ( Amer) ml/min Est GFR (Non-Af Amer) ml/min BUN/Creatinine Ratio (10-20) Glucose (70-99(Fasting)) mg/dl POC Glucose 176 H (70-99) mg/dl Estimat Average Glucose mg/dl Hemoglobin A1c (4.5-5.6) % Lactate (0.4-2.0) mmol/L Calcium (8.5-10.1) mg/dl Magnesium (1.7-2.4) mg/dl Total Bilirubin (0.2-1.0) mg/dl AST (13-39) U/L ALT (7-52) U/L Alkaline Phosphatase (34-104) U/L Ammonia (18-72) umol/L Troponin I High Sens 30.7 H (0-14) pg/ml Total Protein (6.0-8.3) gm/dl Albumin (3.4-5.0) gm/dl Globulin (2.5-4.0) gm/dl Albumin/Globulin Ratio (0.9-2) Triglycerides (0-150) mg/dl Cholesterol (0-200) mg/dl LDL Cholesterol, Calc mg/dl VLDL Cholesterol, Calc (0-30) mg/dl HDL Cholesterol mg/dl Cholesterol/HDL Ratio (0-5) TSH (0.300-4.500) uIu/ml Urine Color Urine Appearance (Clear) Urine pH (4.5-7.5) Ur Specific Hammond (1.000-1.030) Urine Protein (Negative) Urine Glucose (UA) (Negative) Urine Ketones (Negative) Urine Blood (Negative) Urine Nitrite (Negative) Urine Bilirubin (Negative) Urine Urobilinogen (Negative) Ur Leukocyte Esterase (Negative) SARS-CoV-2, RNA, NAAT NEGATIVE (NEGATIVE) Blood Type Antibody Screen 03/22/22 03/22/22 03/22/22 Range/Units 06:35 06:35 06:35 WBC 2.48 L (4.8-10.8) K/ul RBC 4.24 (3.93-5.22) M/uL Hgb 11.9 L (12.0-16.0) g/dl Hct 35.9 (34.1-44.9) % MCV 84.7 (80.0-100.0) fL MCH 28.1 (25.0-34.0) pg MCHC 33.1 (32.0-36.0) g/dL RDW Std Deviation 47.7 H (36.4-46.3) fL RDW Coeff of Xochitl 15.6 H (11.5-14.5) % Plt Count 102 L (130-400) K/uL MPV 10.2 (9.4-12.3) fL Immature Gran % (Auto) % Neut % (Auto) % Lymph % (Auto) % Turner % (Auto) % Eos % (Auto) % Baso % (Auto) % Neut # (Auto) (1.4-6.5) K/uL Lymph # (Auto) (1.2-3.4) K/uL Turner # (Auto) (0.24-0.82) K/uL Eos # (Auto) (0-0.50) K/uL Baso # (Auto) (0-0.2) K/uL Immature Gran # (Auto) (0.00-0.02) K/uL Neutrophils % (Manual) 32 % Lymphocytes % (Manual) 59 % Monocytes % (Manual) 9 % Neutrophils # (Manual) 0.79 L (1.4-6.5) K/uL Total Absolute Neuts 0.79 L* (1.4-6.5) K/uL Lymphocytes # (Manual) 1.46 (1.2-3.4) K/uL Total Abs Lymphocytes 1.46 (1.2-3.4) K/uL Monocytes # (Manual) 0.22 L (0.24-0.82) K/uL PT (9.0-12.0) Seconds INR (0.9-1.1) APTT (21.0-31.0) Seconds PTT Ratio VBG pH (7.36-7.41) VBG pCO2 (38-50) mmHg VBG pO2 mmHg VBG HCO3 mmol/L VBG O2 Saturation % VBG Base Excess mEq/L Sodium 133 L (136-145) mmol/L Potassium 5.1 D (3.5-5.1) mmol/L Chloride 103 (98-107) mmol/L Carbon Dioxide 23 (21-32) mmol/L Anion Gap 7 (3-11) BUN 27 H (6-23) mg/dl Creatinine 1.40 H (0.6-1.2) mg/dl Est Cr Clr Drug Dosing 33.0 ml/min Est GFR ( Amer) 42.8 ml/min Est GFR (Non-Af Amer) 36.9 ml/min BUN/Creatinine Ratio 19.3 (10-20) Glucose 107 H (70-99(Fasting)) mg/dl POC Glucose (70-99) mg/dl Estimat Average Glucose mg/dl Hemoglobin A1c (4.5-5.6) % Lactate (0.4-2.0) mmol/L Calcium 8.6 (8.5-10.1) mg/dl Magnesium 2.2 (1.7-2.4) mg/dl Total Bilirubin (0.2-1.0) mg/dl AST (13-39) U/L ALT (7-52) U/L Alkaline Phosphatase (34-104) U/L Ammonia (18-72) umol/L Troponin I High Sens 23.5 H (0-14) pg/ml Total Protein (6.0-8.3) gm/dl Albumin (3.4-5.0) gm/dl Globulin (2.5-4.0) gm/dl Albumin/Globulin Ratio (0.9-2) Triglycerides 128 (0-150) mg/dl Cholesterol 111 (0-200) mg/dl LDL Cholesterol, Calc 53 mg/dl VLDL Cholesterol, Calc 26 (0-30) mg/dl HDL Cholesterol 32 mg/dl Cholesterol/HDL Ratio 3.5 (0-5) TSH 0.667 (0.300-4.500) uIu/ml Urine Color Urine Appearance (Clear) Urine pH (4.5-7.5) Ur Specific Hammond (1.000-1.030) Urine Protein (Negative) Urine Glucose (UA) (Negative) Urine Ketones (Negative) Urine Blood (Negative) Urine Nitrite (Negative) Urine Bilirubin (Negative) Urine Urobilinogen (Negative) Ur Leukocyte Esterase (Negative) SARS-CoV-2, RNA, NAAT (NEGATIVE) Blood Type Antibody Screen 03/22/22 03/22/22 03/22/22 Range/Units 06:35 07:17 11:44 WBC (4.8-10.8) K/ul RBC (3.93-5.22) M/uL Hgb (12.0-16.0) g/dl Hct (34.1-44.9) % MCV (80.0-100.0) fL MCH (25.0-34.0) pg MCHC (32.0-36.0) g/dL RDW Std Deviation (36.4-46.3) fL RDW Coeff of Xochitl (11.5-14.5) % Plt Count (130-400) K/uL MPV (9.4-12.3) fL Immature Gran % (Auto) % Neut % (Auto) % Lymph % (Auto) % Turner % (Auto) % Eos % (Auto) % Baso % (Auto) % Neut # (Auto) (1.4-6.5) K/uL Lymph # (Auto) (1.2-3.4) K/uL Turner # (Auto) (0.24-0.82) K/uL Eos # (Auto) (0-0.50) K/uL Baso # (Auto) (0-0.2) K/uL Immature Gran # (Auto) (0.00-0.02) K/uL Neutrophils % (Manual) % Lymphocytes % (Manual) % Monocytes % (Manual) % Neutrophils # (Manual) (1.4-6.5) K/uL Total Absolute Neuts (1.4-6.5) K/uL Lymphocytes # (Manual) (1.2-3.4) K/uL Total Abs Lymphocytes (1.2-3.4) K/uL Monocytes # (Manual) (0.24-0.82) K/uL PT (9.0-12.0) Seconds INR (0.9-1.1) APTT (21.0-31.0) Seconds PTT Ratio VBG pH (7.36-7.41) VBG pCO2 (38-50) mmHg VBG pO2 mmHg VBG HCO3 mmol/L VBG O2 Saturation % VBG Base Excess mEq/L Sodium (136-145) mmol/L Potassium (3.5-5.1) mmol/L Chloride (98-107) mmol/L Carbon Dioxide (21-32) mmol/L Anion Gap (3-11) BUN (6-23) mg/dl Creatinine (0.6-1.2) mg/dl Est Cr Clr Drug Dosing ml/min Est GFR ( Amer) ml/min Est GFR (Non-Af Amer) ml/min BUN/Creatinine Ratio (10-20) Glucose (70-99(Fasting)) mg/dl POC Glucose 111 H 177 H (70-99) mg/dl Estimat Average Glucose 137 mg/dl Hemoglobin A1c 6.4 H (4.5-5.6) % Lactate (0.4-2.0) mmol/L Calcium (8.5-10.1) mg/dl Magnesium (1.7-2.4) mg/dl Total Bilirubin (0.2-1.0) mg/dl AST (13-39) U/L ALT (7-52) U/L Alkaline Phosphatase (34-104) U/L Ammonia (18-72) umol/L Troponin I High Sens (0-14) pg/ml Total Protein (6.0-8.3) gm/dl Albumin (3.4-5.0) gm/dl Globulin (2.5-4.0) gm/dl Albumin/Globulin Ratio (0.9-2) Triglycerides (0-150) mg/dl Cholesterol (0-200) mg/dl LDL Cholesterol, Calc mg/dl VLDL Cholesterol, Calc (0-30) mg/dl HDL Cholesterol mg/dl Cholesterol/HDL Ratio (0-5) TSH (0.300-4.500) uIu/ml Urine Color Urine Appearance (Clear) Urine pH (4.5-7.5) Ur Specific Hammond (1.000-1.030) Urine Protein (Negative) Urine Glucose (UA) (Negative) Urine Ketones (Negative) Urine Blood (Negative) Urine Nitrite (Negative) Urine Bilirubin (Negative) Urine Urobilinogen (Negative) Ur Leukocyte Esterase (Negative) SARS-CoV-2, RNA, NAAT (NEGATIVE) Blood Type Antibody Screen [facility] 03/21/22 03/22/22 14:34 06:35 Sodium 132 L 133 L Potassium 3.2 L 5.1 D Chloride 99 103 Carbon Dioxide 26 23 BUN 24 H 27 H Creatinine 1.37 H 1.40 H Glucose 140 H 107 H Calcium 8.3 L 8.6 Liver Function 03/21/22 Range/Units 14:34 Total Bilirubin 0.5 (0.2-1.0) mg/dl AST 37 (13-39) U/L ALT 14 (7-52) U/L Alkaline Phosphatase 66 (34-104) U/L Albumin 2.6 L (3.4-5.0) gm/dl Urine 03/21/22 Range/Units 14:49 Urine Color Yellow Urine Appearance Clear (Clear) Urine pH 5.5 (4.5-7.5) Ur Specific Hammond 1.018 (1.000-1.030) Urine Protein Negative (Negative) Urine Glucose (UA) Negative (Negative) Medications Administered Current Inpatient Medications Acetaminophen (Acetaminophen 325 Mg Tab) 650 mg PO Q4H PRN PRN Reason: Pain or Fever Stop: 04/20/22 18:05 Albuterol (Albuterol Hfa 8 Gm Inhaler) 2 puffs INH Q4 PRN PRN Reason: Shortness Of Breath Stop: 04/20/22 18:16 Aspirin (Aspirin 81 Mg Ectab) 81 mg PO QAM [facility] Stop: 04/21/22 08:59 Last Admin: 03/22/22 08:48 Dose: 81 mg Documented by: Clopidogrel Bisulfate (Clopidogrel Bisulfate 75 Mg Tab) 75 mg PO QAM [facility] Stop: 04/21/22 08:59 Last Admin: 03/22/22 08:48 Dose: 75 mg Documented by: Dextrose (Dextrose 50% 50 Ml Syringe) 25 - 50 ml IV UD PRN; Protocol PRN Reason: Hypoglycemia Protocol Stop: 04/20/22 19:38 Duloxetine HCl (Duloxetine Hcl 60 Mg Cap) 60 mg PO DAILY [facility] Stop: 04/21/22 08:59 Last Admin: 03/22/22 08:48 Dose: 60 mg Documented by: Fluticasone/Vilanterol (Fluticasone/Vilanterol 200/25mcg 14 Puffs/Inhaler) 1 puffs INH DAILY [facility] Stop: 04/20/22 18:05 Last Admin: 03/22/22 08:48 Dose: 1 puffs Documented by: Folic Acid (Folic Acid 1 Mg Tab) 1 mg PO QAM [facility] Stop: 04/21/22 08:59 Last Admin: 03/22/22 08:48 Dose: 1 mg Documented by: Glucagon (Glucagon For Inj 1 Mg Vial) 1 mg SQ UD PRN; Protocol PRN Reason: Hypoglycemia Protocol Stop: 04/20/22 19:38 Glucose (Glucose 40% Gel 15 Gm Tube) 15 - 30 gm PO UD PRN; Protocol PRN Reason: Hypoglycemia Protocol Stop: 04/20/22 19:38 Glucose (Glucose 10 Tabs/Tube) 4 - 8 tab PO UD PRN; Protocol PRN Reason: Hypoglycemia Protocol Stop: 04/20/22 19:44 Heparin Sodium (Porcine) (Heparin Sod 5,000 Unit/0.5 Ml Vial) 5,000 units SQ Q12 [facility] Stop: 04/20/22 20:59 Last Admin: 03/21/22 20:26 Dose: 5,000 units Documented by: Hydroxychloroquine Sulfate (Hydroxychloroquine Sulfate 200 Mg Tab) 200 mg PO HS [facility] Stop: 04/20/22 20:59 Last Admin: 03/21/22 20:28 Dose: 200 mg Documented by: Insulin Aspart (Insulin Aspart Per Unit) 0 units SC ACHS [facility] Stop: 04/20/22 20:59 Last Admin: 03/22/22 12:47 Dose: 3 units Documented by: Latanoprost (Latanoprost 0.005% Op Soln 2.5 Ml Btl) 1 drops OP HS [facility] Stop: 04/20/22 20:59 Last Admin: 03/21/22 20:29 Dose: 1 drops Documented by: Metoprolol Succinate (Metoprolol Succ 50mg Ext Rel Tab) 50 mg PO QAM [facility] Stop: 04/20/22 18:05 Last Admin: 03/22/22 08:49 Dose: Not Given Documented by: Miscellaneous (Solifenacin [Vesicare] 10 Mg Tablet - Order Awaiting Action) 1 ea N/A QS [facility] Stop: 04/21/22 00:00 Last Admin: 03/22/22 08:41 Dose: Not Given Documented by: Miscellaneous (Carbohydrates For Hypoglycemia ) 15 - 30 gm PO UD PRN PRN Reason: Hypoglycemia Protocol Stop: 04/20/22 19:38 Miscellaneous Information (Pharmacist Discharge Med Rec Consult) 1 ea N/A UD PRN PRN Reason: Consult Stop: 04/20/22 18:05 Montelukast Sodium (Montelukast Sodium 10 Mg Tablet) [address] [facility] Stop: 04/20/22 20:59 Last Admin: 03/21/22 20:29 Dose: 10 mg Documented by: Multivitamins/Minerals (Cerovite Adv Formula Tab) 1 tab PO QDL [facility] Stop: 04/21/22 11:29 Last Admin: 03/22/22 12:47 Dose: 1 tab Documented by: Pantoprazole Sodium ([facility]oprazole 40 Mg Tab) [facility] Stop: 04/21/22 08:59 Last Admin: 03/22/22 08:48 Dose: 40 mg Documented by: Polyethylene Glycol (Polyethylene (Miralax) 17 Gm Pack) 17 gm PO DAILY PRN PRN Reason: Constipation Stop: 04/20/22 18:05 Prednisone (Prednisone 5 Mg Tab) 5 mg PO QAM [facility] Stop: 04/20/22 18:05 Last Admin: 03/22/22 08:48 Dose: 5 mg Documented by: Raspberry (Raspberry Syrup 5 Ml Udp) 5 ml PO QAM [facility] Stop: 04/01/22 08:59 Last Admin: 03/22/22 08:49 Dose: 5 ml Documented by: Rosuvastatin Calcium (Rosuvastatin Calcium 20 Mg Tab) 20 mg PO QAM [facility] Stop: 04/22/22 08:59 Thiamine HCl (Thiamine Hcl 50 Mg Tablet) 50 mg PO DAILY [facility] Stop: 04/21/22 08:59 Last Admin: 03/22/22 08:49 Dose: 50 mg Documented by: Vancomycin HCl (Vancomycin Hcl 125 Mg/2.5ml Soln) 125 mg PO DAILY [facility] Stop: 04/21/22 08:59 Last Admin: 03/22/22 08:49 Dose: 125 mg Documented by:
[2022-03-22] MEDS: MONTELUKAST SODIUM 10 MG TABLET PO SCH (20:51)
[2022-03-22] MEDS: HYDROXYCHLOROQUINE SULFATE 200 MG TAB PO SCH (20:51)
[2022-03-22] MEDS: HEPARIN SOD 5,000 UNIT/0.5 ML VIAL SQ SCH (20:51)
[2022-03-22] MEDS: LATANOPROST 0.005% OP SOLN 2.5 ML BTL OP SCH (21:03)
[2022-03-23 06:54] LABS: Hematocrit (blood only) 31.9 % (34.1-44.9); Hemoglobin 10.6 g/dl (12.0-16.0); Mean Corpuscular Hemoglobin 28.6 pg (25.0-34.0); Mean Corpuscular Hgb Conc 33.2 g/dL (32.0-36.0); Mean Platelet Volume 10.2 fL (9.4-12.3); Platelet Count 77 K/uL (130-400); RDW Coefficient of Variation 15.8 % (11.5-14.5); RDW Standard Deviation 49.1 fL (36.4-46.3); Red Blood Count 3.71 M/uL (3.93-5.22); White Blood Count 1.84 K/ul (4.8-10.8)
[2022-03-23 07:22] LABS: BUN Creatinine Ratio 20.4 (10-20); Calcium 8.5 mg/dl (8.5-10.1); Creatinine Clr Calc Pharmacy 32.5 ml/min; Est GFR (African American) 42.1 ml/min; Est GFR (Non-African American) 36.3 ml/min; Magnesium 2.1 mg/dl (1.7-2.4); Phosphorus 2.5 mg/dl (2.5-4.9); Potassium 4.5 mmol/L (3.5-5.1)
[2022-03-23] MEDS: INSULIN ASPART PER UNIT SC SCH ×4 (08:00→22:13)
[2022-03-23] MEDS: HEPARIN SOD 5,000 UNIT/0.5 ML VIAL SQ SCH ×2 (08:23→22:07)
[2022-03-23] MEDS: DULoxetine HCL 60 MG CAP PO SCH (08:23)
[2022-03-23] MEDS: ROSUVASTATIN CALCIUM 20 MG TAB PO SCH (08:23)
[2022-03-23] MEDS: predniSONE 5 MG TAB PO SCH (08:23)
[2022-03-23] MEDS: RASPBERRY SYRUP 5 ML UDP PO SCH (08:23)
[2022-03-23] MEDS: ASPIRIN 81 MG ECTAB PO SCH (08:23)
[2022-03-23] MEDS: PANTOprazole 40 MG TAB PO SCH (08:23)
[2022-03-23] MEDS: FOLIC ACID 1 MG TAB PO SCH (08:23)
[2022-03-23] MEDS: THIAMINE HCL 50 MG TABLET PO SCH (08:23)
[2022-03-23] MEDS: METOPROLOL SUCC 50MG EXT REL TAB PO SCH (08:23)
[2022-03-23] MEDS: CLOPIDOGREL BISULFATE 75 MG TAB PO SCH (08:23)
[2022-03-23] MEDS: FLUTICASONE/VILANTEROL 200/25MCG 14 PUFFS/INHALER INH SCH (08:23)
[2022-03-23] MEDS: VANCOMYCIN HCL 125 MG/2.5ML SOLN PO SCH (08:24)
[2022-03-23] MEDS ORDERED: amLODIPine BESYLATE 5 MG TAB PO SCH (11:00)
--- NOTE | 2022-03-23 11:02 | Hospitalist Progress Note ---
Date of Service March 23, 2022 Assessment & Plan (1) Stroke-like symptoms: Plan: Patient is 76 y/o F with PMH CAD, HTN, HLD, DM II, history of C. difficile on chronic vancomycin therapy, ILD, COPD, rheumatoid arthritis on chronic prednisone therapy, CKD III presented to ER for difficulty speaking and generalized weakness noted at noon today. Last well known 7:00am 03/21/22. Upon ER presentation patient unable to move extremities and had aphasia. During ER course patient improving and now able to move extremities and talking. Has some confusion CT Head 03/21: There is no hemorrhage, mass effect, or evidence of acute territorial ischemia CTA Head and neck03/21: Unremarkable CT angiogram of the brain. Unremarkable CT angiogram of the neck noting atherosclerotic calcification of the carotid bulbs. MRI brain 03/21- Acute infarct in the left putamen with associated soft tissue swelling. No midline shift or hemorrhagic transformation is seen. Acute ischemic stroke of left basal ganglia- MRI brain shows acute infarct of left putamen - seen by neuro- recommendations noted - ASA/plavix for 21 days followed by plavix alone - Increased crestor to 20 daily - A1c 6.4, BP elevated - Echo with normal EF, no interatrial shunt, mild - PT recommended SNF - Neuro follow up in 8 weeks Elevated Troponin- trop trend only mildly elevated and flat. No chest pain. Likely demand ischemia. Continue tele. Echo reveiwed Hypokalemia- resolved with repletion Hypomagnesemia- resolved with repletion CKD III- Cr at baseline of 1.3-1.4 Rheumatoid arthritis- On chronic prednisone 5 mg daily along with hydroxychloroquine hs. Denies any recent flares COPD/ILD- No signs of exacerbation, Continue home inhalers Prediabetes- A1c 6.4. Might benefit from diet modifications and metformin as OP. defer to PCP. SSI prn here. HTN- BP elevated. Continue metoprolol succinate. Her CKD and risk of hyperkalemia would preclude ACEI. Will add norvasc with goal BP of <130/80. History C. difficile- On chronic vancomycin Bicytopenia- Leucopenia/Thrombocytopenia- unclear etiology ?medication S/E. will monitor for now Hyponatremia- mild, improving DVT Prophylaxis- Heparin SQ Dispo- PT recommended SNF. CM following. Admission and Anticipated Discharge Date Admission Date: March 21, 2022 Subjective Continues to feel better. She asks if she can go to the bathroom herself without need for aides or nurses. She is agreeable to going to the rehab per PT recommendations. Normal oral intake. No new neurological symptoms. Physical Exam Physical Exam: General: Lying comfortably in bed, not in distress, on room air HEENT: EOMI, RODOLFO, MMM Chest: Clear breath sounds bilaterally, no wheezes or crackles CVS: Regular rate and rhythm, normal heart sounds, no murmur Abdomen: Soft, non tender, not distended, normal bowel sounds Neuro: Awake, alert, oriented, conversing well, non focal. Extremities: No cyanosis, clubbing or edema Results & Data Results & Data ([facility] [place]) Vital Signs (Past 12 Hours) Vital Signs Temp Pulse Pulse Resp BP BP Pulse Ox 03/23/22 07:44 36.7 C 65 16 178/82 H 96 03/23/22 07:30 57 L 03/23/22 03:16 36.7 C 60 18 152/71 H 96 03/23/22 01:43 60 03/22/22 23:54 36.6 C 62 18 154/66 H 99 Laboratory Results Short CBC 03/21/22 03/23/22 Range/Units 14:34 06:25 WBC 1.84 L (4.8-10.8) K/ul Hgb 10.6 L (12.0-16.0) g/dl Hct 31.9 L (34.1-44.9) % Plt Count 77 L (130-400) K/uL Creatinine 1.37 H (0.6-1.2) mg/dl BMP 03/23/22 06:25 Sodium 133 L Potassium 4.5 Chloride 104 Carbon Dioxide 25 BUN 29 H Creatinine 1.42 H Glucose 80 Calcium 8.5 Medications Administered Current Inpatient Medications Acetaminophen (Acetaminophen 325 Mg Tab) 650 mg PO Q4H PRN PRN Reason: Pain or Fever Stop: 04/20/22 18:05 Albuterol (Albuterol Hfa 8 Gm Inhaler) 2 puffs INH Q4 PRN PRN Reason: Shortness Of Breath Stop: 04/20/22 18:16 Amlodipine Besylate (Amlodipine Besylate 5 Mg Tab) 5 mg PO QAM [facility] Stop: 04/22/22 10:59 Aspirin (Aspirin 81 Mg Ectab) 81 mg PO QAM [facility] Stop: 04/21/22 08:59 Last Admin: 03/23/22 08:23 Dose: 81 mg Documented by: Clopidogrel Bisulfate (Clopidogrel Bisulfate 75 Mg Tab) 75 mg PO QAM [facility] Stop: 04/21/22 08:59 Last Admin: 03/23/22 08:23 Dose: 75 mg Documented by: Dextrose (Dextrose 50% 50 Ml Syringe) 25 - 50 ml IV UD PRN; Protocol PRN Reason: Hypoglycemia Protocol Stop: 04/20/22 19:38 Duloxetine HCl (Duloxetine Hcl 60 Mg Cap) 60 mg PO DAILY [facility] Stop: 04/21/22 08:59 Last Admin: 03/23/22 08:23 Dose: 60 mg Documented by: Fluticasone/Vilanterol (Fluticasone/Vilanterol 200/25mcg 14 Puffs/Inhaler) 1 puffs INH DAILY [facility] Stop: 04/20/22 18:05 Last Admin: 03/23/22 08:23 Dose: 1 puffs Documented by: Folic Acid (Folic Acid 1 Mg Tab) 1 mg PO QAM [facility] Stop: 04/21/22 08:59 Last Admin: 03/23/22 08:23 Dose: 1 mg Documented by: Glucagon (Glucagon For Inj 1 Mg Vial) 1 mg SQ UD PRN; Protocol PRN Reason: Hypoglycemia Protocol Stop: 04/20/22 19:38 Glucose (Glucose 40% Gel 15 Gm Tube) 15 - 30 gm PO UD PRN; Protocol PRN Reason: Hypoglycemia Protocol Stop: 04/20/22 19:38 Glucose (Glucose 10 Tabs/Tube) 4 - 8 tab PO UD PRN; Protocol PRN Reason: Hypoglycemia Protocol Stop: 04/20/22 19:44 Heparin Sodium (Porcine) (Heparin Sod 5,000 Unit/0.5 Ml Vial) 5,000 units SQ Q12 [facility] Stop: 04/20/22 20:59 Last Admin: 03/23/22 08:23 Dose: 5,000 units Documented by: Hydroxychloroquine Sulfate (Hydroxychloroquine Sulfate 200 Mg Tab) 200 mg PO HS [facility] Stop: 04/20/22 20:59 Last Admin: 03/22/22 20:51 Dose: 200 mg Documented by: Insulin Aspart (Insulin Aspart Per Unit) 0 units SC ACHS [facility] Stop: 04/20/22 20:59 Last Admin: 03/23/22 08:00 Dose: Not Given Documented by: Latanoprost (Latanoprost 0.005% Op Soln 2.5 Ml Btl) 1 drops OP HS [facility] Stop: 04/20/22 20:59 Last Admin: 03/22/22 21:03 Dose: 1 drops Documented by: Metoprolol Succinate (Metoprolol Succ 50mg Ext Rel Tab) 50 mg PO QAM [facility] Stop: 04/20/22 18:05 Last Admin: 03/23/22 08:23 Dose: 50 mg Documented by: Miscellaneous (Solifenacin [Vesicare] 10 Mg Tablet - Order Awaiting Action) 1 ea N/A QS [facility] Stop: 04/21/22 00:00 Last Admin: 03/23/22 08:01 Dose: Not Given Documented by: Miscellaneous (Carbohydrates For Hypoglycemia ) 15 - 30 gm PO UD PRN PRN Reason: Hypoglycemia Protocol Stop: 04/20/22 19:38 Miscellaneous Information (Pharmacist Discharge Med Rec Consult) 1 ea N/A UD PRN PRN Reason: Consult Stop: 04/20/22 18:05 Montelukast Sodium (Montelukast Sodium 10 Mg Tablet) 10 mg PO [facility] Stop: 04/20/22 20:59 Last Admin: 03/22/22 20:51 Dose: 10 mg Documented by: Multivitamins/Minerals (Cerovite Adv Formula Tab) 1 tab PO QDL [facility] Stop: 04/21/22 11:29 Last Admin: 03/22/22 12:47 Dose: 1 tab Documented by: Pantoprazole Sodium (Pantoprazole 40 Mg Tab) 40 mg PO QAM [facility] Stop: 04/21/22 08:59 Last Admin: 03/23/22 08:23 Dose: 40 mg Documented by: Polyethylene Glycol (Polyethylene (Miralax) 17 Gm Pack) 17 gm PO DAILY PRN PRN Reason: Constipation Stop: 04/20/22 18:05 Prednisone (Prednisone 5 Mg Tab) 5 mg PO QAM [facility] Stop: 04/20/22 18:05 Last Admin: 03/23/22 08:23 Dose: 5 mg Documented by: Raspberry (Raspberry Syrup 5 Ml Udp) 5 ml PO QAM [facility] Stop: 04/01/22 08:59 Last Admin: 03/23/22 08:23 Dose: 5 ml Documented by: Rosuvastatin Calcium (Rosuvastatin Calcium 20 Mg Tab) 20 mg PO QAM [facility] Stop: 04/22/22 08:59 Last Admin: 03/23/22 08:23 Dose: 20 mg Documented by: Thiamine HCl (Thiamine Hcl 50 Mg Tablet) 50 mg PO DAILY [facility] Stop: 04/21/22 08:59 Last Admin: 03/23/22 08:23 Dose: 50 mg Documented by: Vancomycin HCl (Vancomycin Hcl 125 Mg/2.5ml Soln) 125 mg PO DAILY [facility] Stop: 04/21/22 08:59 Last Admin: 03/23/22 08:24 Dose: 125 mg Documented by:
[2022-03-23] MEDS: CEROVITE ADV FORMULA TAB PO SCH (12:15)
[2022-03-23] MEDS: HYDROXYCHLOROQUINE SULFATE 200 MG TAB PO SCH (22:13)
[2022-03-23] MEDS: MONTELUKAST SODIUM 10 MG TABLET PO SCH (22:14)
[2022-03-23] MEDS: LATANOPROST 0.005% OP SOLN 2.5 ML BTL OP SCH (22:15)
[2022-03-24 07:52] LABS: Hematocrit (blood only) 33.1 % (34.1-44.9); Mean Corpuscular Hgb Conc 33.2 g/dL (32.0-36.0); Mean Corpuscular Volume 84.2 fL (80.0-100.0); Mean Platelet Volume 9.6 fL (9.4-12.3); Platelet Count 82 K/uL (130-400); RDW Coefficient of Variation 15.4 % (11.5-14.5); RDW Standard Deviation 46.8 fL (36.4-46.3); Red Blood Count 3.93 M/uL (3.93-5.22); White Blood Count 1.99 K/ul (4.8-10.8)
[2022-03-24 08:21] LABS: BUN Creatinine Ratio 21.1 (10-20); Calcium 9.1 mg/dl (8.5-10.1); Creatinine Clr Calc Pharmacy 34.7 ml/min; Est GFR (African American) 45.5 ml/min; Est GFR (Non-African American) 39.3 ml/min; Potassium 4.1 mmol/L (3.5-5.1)
[2022-03-24] MEDS: INSULIN ASPART PER UNIT SC SCH ×4 (08:51→21:19)
[2022-03-24] MEDS: amLODIPine BESYLATE 5 MG TAB PO SCH (08:57)
[2022-03-24] MEDS: VANCOMYCIN HCL 125 MG/2.5ML SOLN PO SCH (08:58)
[2022-03-24] MEDS: CLOPIDOGREL BISULFATE 75 MG TAB PO SCH (08:58)
[2022-03-24] MEDS: DULoxetine HCL 60 MG CAP PO SCH (08:58)
[2022-03-24] MEDS: PANTOprazole 40 MG TAB PO SCH (08:58)
[2022-03-24] MEDS: ROSUVASTATIN CALCIUM 20 MG TAB PO SCH (08:58)
[2022-03-24] MEDS: predniSONE 5 MG TAB PO SCH (08:58)
[2022-03-24] MEDS: THIAMINE HCL 50 MG TABLET PO SCH (08:58)
[2022-03-24] MEDS: RASPBERRY SYRUP 5 ML UDP PO SCH (08:58)
[2022-03-24] MEDS: HEPARIN SOD 5,000 UNIT/0.5 ML VIAL SQ SCH ×2 (08:58→21:53)
[2022-03-24] MEDS: FLUTICASONE/VILANTEROL 200/25MCG 14 PUFFS/INHALER INH SCH (08:58)
[2022-03-24] MEDS: ASPIRIN 81 MG ECTAB PO SCH (08:58)
[2022-03-24] MEDS: METOPROLOL SUCC 50MG EXT REL TAB PO SCH (08:59)
[2022-03-24] MEDS: FOLIC ACID 1 MG TAB PO SCH (08:59)
[2022-03-24 09:00] LABS: Basophils # (auto) 0.01 K/uL (0-0.2); Basophils % (auto) 0.5 %; Eosinophils # (auto) 0.09 K/uL (0-0.50); Eosinophils % (auto) 4.5 %; Lymphocytes # (auto) 1.36 K/uL (1.2-3.4); Lymphocytes % (auto) 68.3 %; Monocytes # (auto) 0.24 K/uL (0.24-0.82); Monocytes % (auto) 12.1 %; Neutrophils # (auto) 0.29 K/uL (1.4-6.5); Neutrophils % (auto) 14.6 %
[2022-03-24 10:13] LABS: Bilirubin Direct 0.1 mg/dl (0-0.2); Bilirubin,Total 0.4 mg/dl (0.2-1.0); Total Protein 6.4 gm/dl (6.0-8.3)
[2022-03-24] MEDS ORDERED: MICONAZOLE NITRATE POWDER 43 GM EXT PRN (10:23)
--- NOTE | 2022-03-24 11:29 | Hospitalist Progress Note ---
Date of Service March 24, 2022 Assessment & Plan (1) Stroke-like symptoms: Plan: Patient is 76 y/o F with PMH CAD, HTN, HLD, DM II, history of C. difficile on chronic vancomycin therapy, ILD, COPD, rheumatoid arthritis on chronic prednisone therapy, CKD III presented to ER for difficulty speaking and generalized weakness noted at noon today. Last well known 7:00am 03/21/22. Upon ER presentation patient unable to move extremities and had aphasia. During ER course patient improving and now able to move extremities and talking. Has some confusion CT Head 03/21: There is no hemorrhage, mass effect, or evidence of acute territorial ischemia CTA Head and neck03/21: Unremarkable CT angiogram of the brain. Unremarkable CT angiogram of the neck noting atherosclerotic calcification of the carotid bulbs. MRI brain 03/21- Acute infarct in the left putamen with associated soft tissue swelling. No midline shift or hemorrhagic transformation is seen. Acute ischemic stroke of left basal ganglia- MRI brain shows acute infarct of left putamen - seen by neuro- recommendations noted - ASA/plavix for 21 days followed by plavix alone - Increased crestor to 20 daily - A1c 6.4, BP elevated- norvasc added - Echo with normal EF, no interatrial shunt, mild - PT recommended SNF - Neuro follow up in 8 weeks Elevated Troponin- trop trend only mildly elevated and flat. No chest pain. Likely demand ischemia. Continue tele. Echo reveiwed Hypokalemia- resolved with repletion Hypomagnesemia- resolved with repletion CKD III- Cr at baseline of 1.3-1.4 Rheumatoid arthritis- On chronic prednisone 5 mg daily along with hydroxychloroquine hs. Denies any recent flares COPD/ILD- No signs of exacerbation, Continue home inhalers Prediabetes- A1c 6.4. Might benefit from diet modifications and metformin as OP. defer to PCP. SSI prn here. HTN- BP elevated. Continue metoprolol succinate. Her CKD and risk of hyperkalemia would preclude ACEI. Added norvasc but BP still elevated- will uptitrate to 10 mg daily with goal BP of <130/80. History C. difficile- On chronic vancomycin Bicytopenia- Leucopenia with neutropenia/Thrombocytopenia- ANC 0.29, WBC 1.99, Plts slightly improved to 82. Unclear etiology - will check peripheral blood smear, AST minimally elevated, no fever, denies any tick bites. Denies any similar prior issues. No new meds except for plavix, heparin, norvasc but doubt these as causative agents as she already had bicytopenia on presentation. Doubt HIT. Follow up on PBS, will hold plaquenil for now. Consulted hematology for further evaluation. Hyponatremia- mild, stable at 133 DVT Prophylaxis- Heparin SQ Dispo- PT recommended SNF. CM following. Pending hematology evaluation for bicytopenia Admission and Anticipated Discharge Date Admission Date: March 21, 2022 Subjective No new issues. She feels good. She feels almost back to baseline. Normal oral intake. Moving bladder bowel without issues. Discussed about her low white count and platelets- denies any prior similar issues, denies any tick bites. No fever, chills, rash, shortness of breath, pain. Physical Exam Physical Exam: General: Sitting comfortably in chair, not in distress, on room air HEENT: EOMI, RODOLFO, MMM Chest: Clear breath sounds bilaterally, no wheezes or crackles CVS: Regular rate and rhythm, normal heart sounds, no murmur Abdomen: Soft, non tender, not distended, normal bowel sounds Neuro: Awake, alert, oriented, conversing well, non focal. Extremities: No cyanosis, clubbing or edema Results & Data Results & Data ([facility]) Vital Signs (Past 12 Hours) Vital Signs Temp Pulse Pulse Pulse Resp BP BP 03/24/22 08:04 36.8 C 76 20 164/82 H 03/24/22 07:43 70 03/24/22 06:09 36.8 C 69 18 169/66 H 03/24/22 03:44 36.7 C 59 L 18 155/74 H Pulse Ox 03/24/22 08:04 94 03/24/22 07:43 03/24/22 06:09 94 03/24/22 03:44 93 Laboratory Results Short CBC 03/24/22 Range/Units 07:04 WBC 1.99 L (4.8-10.8) K/ul Hgb 11.0 L (12.0-16.0) g/dl Hct 33.1 L (34.1-44.9) % Plt Count 82 L (130-400) K/uL BMP 03/24/22 07:04 Sodium 133 L Potassium 4.1 Chloride 102 Carbon Dioxide 25 BUN 28 H Creatinine 1.33 H Glucose 74 Calcium 9.1 Liver Function 03/24/22 Range/Units 07:04 Total Bilirubin 0.4 (0.2-1.0) mg/dl Direct Bilirubin 0.1 (0-0.2) mg/dl AST 55 H (13-39) U/L ALT 25 (7-52) U/L Alkaline Phosphatase 71 (34-104) U/L Albumin 3.0 L (3.4-5.0) gm/dl Medications Administered Current Inpatient Medications Acetaminophen (Acetaminophen 325 Mg Tab) 650 mg PO Q4H PRN PRN Reason: Pain or Fever Stop: 04/20/22 18:05 Albuterol (Albuterol Hfa 8 Gm Inhaler) 2 puffs INH Q4 PRN PRN Reason: Shortness Of Breath Stop: 04/20/22 18:16 Amlodipine Besylate (Amlodipine Besylate 5 Mg Tab) 10 mg PO QAM [facility] Stop: 04/23/22 08:59 Last Admin: 03/24/22 08:57 Dose: 10 mg Documented by: Aspirin (Aspirin 81 Mg Ectab) 81 mg PO QAM [facility] Stop: 04/21/22 08:59 Last Admin: 03/24/22 08:58 Dose: 81 mg Documented by: Clopidogrel Bisulfate (Clopidogrel Bisulfate 75 Mg Tab) 75 mg PO QAM [facility] Stop: 04/21/22 08:59 Last Admin: 03/24/22 08:58 Dose: 75 mg Documented by: Dextrose (Dextrose 50% 50 Ml Syringe) 25 - 50 ml IV UD PRN; Protocol PRN Reason: Hypoglycemia Protocol Stop: 04/20/22 19:38 Duloxetine HCl (Duloxetine Hcl 60 Mg Cap) 60 mg PO DAILY [facility] Stop: 04/21/22 08:59 Last Admin: 03/24/22 08:58 Dose: 60 mg Documented by: Fluticasone/Vilanterol (Fluticasone/Vilanterol 200/25mcg 14 Puffs/Inhaler) 1 puffs INH DAILY [facility] Stop: 04/20/22 18:05 Last Admin: 03/24/22 08:58 Dose: 1 puffs Documented by: Folic Acid (Folic Acid 1 Mg Tab) 1 mg PO QAM [facility] Stop: 04/21/22 08:59 Last Admin: 03/24/22 08:59 Dose: 1 mg Documented by: Glucagon (Glucagon For Inj 1 Mg Vial) 1 mg SQ UD PRN; Protocol PRN Reason: Hypoglycemia Protocol Stop: 04/20/22 19:38 Glucose (Glucose 40% Gel 15 Gm Tube) 15 - 30 gm PO UD PRN; Protocol PRN Reason: Hypoglycemia Protocol Stop: 04/20/22 19:38 Glucose (Glucose 10 Tabs/Tube) 4 - 8 tab PO UD PRN; Protocol PRN Reason: Hypoglycemia Protocol Stop: 04/20/22 19:44 Heparin Sodium (Porcine) (Heparin Sod 5,000 Unit/0.5 Ml Vial) 5,000 units SQ Q12 [facility] Stop: 04/20/22 20:59 Last Admin: 03/24/22 08:58 Dose: 5,000 units Documented by: Hydroxychloroquine Sulfate (Hydroxychloroquine Sulfate 200 Mg Tab) 200 mg PO HS [facility] Stop: 04/20/22 20:59 Last Admin: 03/23/22 22:13 Dose: 200 mg Documented by: Insulin Aspart (Insulin Aspart Per Unit) 0 units SC ACHS [facility] Stop: 04/20/22 20:59 Last Admin: 03/24/22 08:51 Dose: 1 units Documented by: Latanoprost (Latanoprost 0.005% Op Soln 2.5 Ml Btl) 1 drops OP HS [facility] Stop: 04/20/22 20:59 Last Admin: 03/23/22 22:15 Dose: 1 drops Documented by: Metoprolol Succinate (Metoprolol Succ 50mg Ext Rel Tab) 50 mg PO QAM [facility] Stop: 04/20/22 18:05 Last Admin: 03/24/22 08:59 Dose: 50 mg Documented by: Miconazole Nitrate (Miconazole Nitrate Powder 43 Gm) 1 appln EXT PRN PRN PRN Reason: Affected Skin Folds Stop: 04/23/22 10:22 Miscellaneous (Carbohydrates For Hypoglycemia ) 15 - 30 gm PO UD PRN PRN Reason: Hypoglycemia Protocol Stop: 04/20/22 19:38 Miscellaneous Information (Pharmacist Discharge Med Rec Consult) 1 ea N/A UD PRN PRN Reason: Consult Stop: 04/20/22 18:05 Montelukast Sodium (Montelukast Sodium 10 Mg Tablet) 10 mg PO HS [facility] Stop: 04/20/22 20:59 Last Admin: 03/23/22 22:14 Dose: 10 mg Documented by: Multivitamins/Minerals (Cerovite Adv Formula Tab) 1 tab PO QDL [facility] Stop: 04/21/22 11:29 Last Admin: 03/23/22 12:15 Dose: 1 tab Documented by: Pantoprazole Sodium (Pantoprazole 40 Mg Tab) 40 mg PO QAM [facility] Stop: 04/21/22 08:59 Last Admin: 03/24/22 08:58 Dose: 40 mg Documented by: Polyethylene Glycol (Polyethylene (Miralax) 17 Gm Pack) 17 gm PO DAILY PRN PRN Reason: Constipation Stop: 04/20/22 18:05 Prednisone (Prednisone 5 Mg Tab) 5 mg PO QAM [facility] Stop: 04/20/22 18:05 Last Admin: 03/24/22 08:58 Dose: 5 mg Documented by: Raspberry (Raspberry Syrup 5 Ml Udp) 5 ml PO QAM [facility] Stop: 04/01/22 08:59 Last Admin: 03/24/22 08:58 Dose: 5 ml Documented by: Rosuvastatin Calcium (Rosuvastatin Calcium 20 Mg Tab) 20 mg PO QAM [facility] Stop: 04/22/22 08:59 Last Admin: 03/24/22 08:58 Dose: 20 mg Documented by: Thiamine HCl (Thiamine Hcl 50 Mg Tablet) 50 mg PO DAILY [facility] Stop: 04/21/22 08:59 Last Admin: 03/24/22 08:58 Dose: 50 mg Documented by: Vancomycin HCl (Vancomycin Hcl 125 Mg/2.5ml Soln) 125 mg PO DAILY [facility] Stop: 04/21/22 08:59 Last Admin: 03/24/22 08:58 Dose: 125 mg Documented by:
[2022-03-24] MEDS: CEROVITE ADV FORMULA TAB PO SCH (12:12)
[2022-03-24] MEDS: LATANOPROST 0.005% OP SOLN 2.5 ML BTL OP SCH (21:52)
[2022-03-24] MEDS: MONTELUKAST SODIUM 10 MG TABLET PO SCH (21:52)
[2022-03-25 07:56] LABS: Hematocrit (blood only) 32.9 % (34.1-44.9); Hemoglobin 11.2 g/dl (12.0-16.0); Mean Corpuscular Hemoglobin 28.5 pg (25.0-34.0); Mean Corpuscular Volume 83.7 fL (80.0-100.0); Mean Platelet Volume 9.7 fL (9.4-12.3); Platelet Count 81 K/uL (130-400); RDW Coefficient of Variation 15.4 % (11.5-14.5); RDW Standard Deviation 46.8 fL (36.4-46.3); Red Blood Count 3.93 M/uL (3.93-5.22); White Blood Count 2.06 K/ul (4.8-10.8)
[2022-03-25] MEDS: amLODIPine BESYLATE 5 MG TAB PO SCH (08:14)
[2022-03-25] MEDS: CLOPIDOGREL BISULFATE 75 MG TAB PO SCH (08:15)
[2022-03-25] MEDS: METOPROLOL SUCC 50MG EXT REL TAB PO SCH (08:15)
[2022-03-25] MEDS: THIAMINE HCL 50 MG TABLET PO SCH (08:15)
[2022-03-25] MEDS: predniSONE 5 MG TAB PO SCH (08:16)
[2022-03-25] MEDS: ASPIRIN 81 MG ECTAB PO SCH (08:16)
[2022-03-25] MEDS: HEPARIN SOD 5,000 UNIT/0.5 ML VIAL SQ SCH ×2 (08:16→21:04)
[2022-03-25] MEDS: DULoxetine HCL 60 MG CAP PO SCH (08:16)
[2022-03-25] MEDS: ROSUVASTATIN CALCIUM 20 MG TAB PO SCH (08:16)
[2022-03-25] MEDS: PANTOprazole 40 MG TAB PO SCH (08:16)
[2022-03-25] MEDS: RASPBERRY SYRUP 5 ML UDP PO SCH (08:17)
[2022-03-25] MEDS: FOLIC ACID 1 MG TAB PO SCH (08:17)
[2022-03-25] MEDS: FLUTICASONE/VILANTEROL 200/25MCG 14 PUFFS/INHALER INH SCH (08:17)
[2022-03-25] MEDS: INSULIN ASPART PER UNIT SC SCH ×4 (08:23→21:04)
[2022-03-25] MEDS: VANCOMYCIN HCL 125 MG/2.5ML SOLN PO SCH (08:30)
[2022-03-25 08:40] LABS: Albumin Level 3.1 gm/dl (3.4-5.0); BUN Creatinine Ratio 17.8 (10-20); Bilirubin Direct 0.1 mg/dl (0-0.2); Bilirubin,Total 0.4 mg/dl (0.2-1.0); Calcium 9.5 mg/dl (8.5-10.1); Creatinine Clr Calc Pharmacy 33.5 ml/min; Est GFR (African American) 44.7 ml/min; Est GFR (Non-African American) 38.6 ml/min; Total Protein 6.4 gm/dl (6.0-8.3)
[2022-03-25 09:27] LABS: Basophils # (auto) 0.01 K/uL (0-0.2); Basophils % (auto) 0.5 %; Eosinophils # (auto) 0.04 K/uL (0-0.50); Eosinophils % (auto) 1.9 %; Immature Granulocytes # (auto) 0.01 K/uL (0.00-0.02); Immature Granulocytes % (auto) 0.5 %; Lymphocytes # (auto) 1.55 K/uL (1.2-3.4); Lymphocytes % (auto) 75.2 %; Monocytes # (auto) 0.25 K/uL (0.24-0.82); Monocytes % (auto) 12.1 %; Neutrophils % (auto) 9.8 %
[2022-03-25] MEDS: CEROVITE ADV FORMULA TAB PO SCH (11:05)
--- NOTE | 2022-03-25 16:27 | Hospitalist Progress Note ---
Date of Service March 25, 2022 Assessment & Plan (1) Stroke-like symptoms: Plan: Patient is 76 y/o F with PMH CAD, HTN, HLD, DM II, history of C. difficile on chronic vancomycin therapy, ILD, COPD, rheumatoid arthritis on chronic prednisone therapy, CKD III presented to ER 03/21 for difficulty speaking and generalized weakness noted at noon on the day of arrival. Last well known 7:00am 03/21/22. Upon ER presentation patient unable to move extremities and had aphasia both of which improved during ER stay. Had some confusion at presentation. She is being managed for the following: CT Head 03/21: There is no hemorrhage, mass effect, or evidence of acute territorial ischemia CTA Head and neck03/21: Unremarkable CT angiogram of the brain. Unremarkable CT angiogram of the neck noting atherosclerotic calcification of the carotid bulbs. MRI brain 03/21- Acute infarct in the left putamen with associated soft tissue swelling. No midline shift or hemorrhagic transformation is seen. MRI brain 03/25: ordered, pending. Acute ischemic stroke of left basal ganglia- MRI brain shows acute infarct of left putamen - seen by neuro- recommendations noted - ASA/plavix for 21 days from 03/22/22 followed by plavix alone - Increased crestor to 20 mg daily - A1c 6.4, BP elevated- norvasc added - 03/22 Echo with normal EF, no interatrial shunt, mild - PT recommended SNF - Neuro follow up in 8 weeks - Pt has new focal sign today, weak manager credit on Lt hand w/ power 3-4/5 with LETICIAE, d/w neuro, repeating MRI brain w/wo con. Await MRI. Elevated Troponin- trop trend only mildly elevated and flat. No chest pain. Likely demand ischemia. Continue tele. Echo reveiwed Electrolytes abnormality: Monitor and replete, maintain potassium greater than 4 and magnesium greater than 2. CKD III- Cr at baseline of 1.3-1.4 Rheumatoid arthritis- On chronic prednisone 5 mg daily along with hydroxychloroquine hs. Denies any recent flares COPD/ILD- No signs of exacerbation, Continue home inhalers Prediabetes- A1c 6.4. Might benefit from diet modifications and metformin as OP. defer to PCP. SSI prn here. HTN- BP elevated. Continue metoprolol succinate. Her CKD and risk of hyperkalemia would preclude ACEI. Added norvasc and uptitrated to 10 mg daily with goal BP of <130/80. BP fairly better. History C. difficile- On chronic vancomycin Bicytopenia- Leucopenia with neutropenia/Thrombocytopenia- Unclear etiology - PBS 03/24 reviewed, AST minimally elevated but appears to be chronic, no fever, denies any tick bites. Denies any similar prior issues. No new meds except for plavix, heparin, norvasc but doubt these as causative agents as she already had bicytopenia on presentation. Doubt HIT. Will hold plaquenil for now. Awaiting hematology for further recs. Hyponatremia- mild, stable. DVT Prophylaxis- Heparin SQ Dispo- PT recommended SNF. CM following. Pending hematology evaluation for bicytopenia and neuro re-eval for new LUE weakness. Admission and Anticipated Discharge Date Admission Date: March 21, 2022 Subjective Patient seen and examined at bedside as a follow-up of acute infarcts in the left leg putamen, elevated troponin and electrolytes abnormality. No new issues. Reports eating good. NAD. On room air. Reports feeling very tired. During examination her left manager credit strength was noted to be weaker and patient reports that this is something new that she had not noticed before. Moving bladder bowel without issues. No fever, chills, rash, shortness of breath, pain. Physical Exam Physical Exam: GENERAL: Alert and oriented x3. NAD, on RA. Appears weak, old and frail. HEENT: No pallor, no icterus. Pupils equal, round and reactive to light. Oral mucosa moist. NECK: No JVD, no neck masses. HEART: S1 and S2 heard. Regular rate and rhythm. No murmur, no gallop. RESPIRATORY SYSTEM: Normal AP diameter. No accessory muscle use. No wheezing, no crackles. ABDOMEN: Soft, bowel sounds present, nontender, no distention. CENTRAL NERVOUS SYSTEM: No facial droop. Speech is clear. Obeys simple commands. Moves extremities. Weak LUE 3-4/5 w/ weak Lt hand manager credit. EXTREMITIES: No edema, no erythema seen. Results & Data Results & Data ([facility]) Vital Signs (Past 12 Hours) Vital Signs Temp Pulse Pulse Resp BP BP Pulse Ox 03/25/22 15:23 74 03/25/22 15:17 36.7 C 73 18 120/63 94 03/25/22 12:45 98 03/25/22 11:16 36.8 C 74 18 123/78 96 03/25/22 07:04 72
[2022-03-25] MEDS ORDERED: GADOBUTROL 65ML VIAL IV ONE (16:58)
--- NOTE | 2022-03-25 18:05 | Magnetic Resonance Report ---
MR brain wo/w con CLINICAL HISTORY: New left arm weakness. 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 COMPARISON STUDY: 03/21/2022 TECHNIQUE: Multiplanar multisequence images of the brain were performed before and after Gadavist, 5 .5 mL of IV contrast. Diffusion weighted imaging and ADC mapping was also performed. FINDINGS: Extra-axial space: There is no evidence for a subdural hematoma, There are no extra-axial fluid venita ections. Ventricles and cisterns: The ventricles are normal in size and configuration. There is no evidence f or midline shift or mass effect. Parenchyma: On noncontrast images, there is evidence for subacute infarct within the putamen on the l eft. Diffusion abnormality is again seen. No new infarcts are identified. There is normal childs-white differentiation. There is mild cerebral cortical atrophy present. There is again bright signal seen on T2 and FLAIR we ighted sequences within the centrum semiovale and periventricular white matter characteristic of brigette te small vessel disease. The sulci and gyri appear normal without effacement. The midline structures are unremarkable. The posterior fossa structures appear normal. On postcontrast images, there is no evidence for enhancing mass lesion. Osseous structures: The paranasal sinuses are well aerated. The mastoid air cells are well aerated. Soft tissues: No focal soft tissue abnormalities are identified. IMPRESSION: 1. Compared to the previous study, there is a subacute infarct again seen within the putamen on the l eft. 2. There is no evidence for acute infarct. 3. Mild cerebral cortical atrophy and remote small vessel disease are again seen. ACT 112: Negative or not required by law. Electronically signed by: Niranjan Yi M.D. 03/25/2022 6:02 PM
[2022-03-25] MEDS: MONTELUKAST SODIUM 10 MG TABLET PO SCH (21:04)
[2022-03-25] MEDS: LATANOPROST 0.005% OP SOLN 2.5 ML BTL OP SCH (21:04)
--- NOTE | 2022-03-25 22:22 | Neurology Progress Note ---
Date of Service March 26, 2022 Assessment & Plan (1) Ischemic stroke: Plan: A 76-year-old female with multiple stroke risk factors including type 2 diabetes, hypertension, hyperlipidemia, and prior transient ischemic attack, on aspirin, admitted with an acute left basal ganglia ischemic stroke, likely small vessel in etiology.Repeat MRI brain Negative for new ischemic stroke or hemorrhage. Left hand card seller appears symmetric this afternoon. Continue dual antiplatelet therapy for 21 days, aspirin 81 mg daily and Plavix 75 mg daily. After 21 days, stop the aspirin and continue Plavix 75 mg daily. Continue Crestor to 20 mg daily. Admission and Anticipated Discharge Date Admission Date: March 21, 2022 Subjective Patient was seen and examiend. She reports doing well. Having some pain in right wrist from IV. She denies left hand weakness. Physical Exam Physical Exam: Awake and alert. FOllowing commands. Speech is mildly dysarthric. Hang card seller symmetric. No ataxia with finger to nose. Sensation is intact. Results & Data ([facility]) Vital Signs (Past 12 Hours) Vital Signs Temp Pulse Pulse Resp BP BP Pulse Ox 03/25/22 19:36 36.8 C 75 19 110/60 96 03/25/22 15:23 74 03/25/22 15:17 36.7 C 73 18 120/63 94 03/25/22 12:45 98 03/25/22 11:16 36.8 C 74 18 123/78 96
[2022-03-26 06:37] LABS: Hematocrit (blood only) 31.2 % (34.1-44.9); Hemoglobin 10.5 g/dl (12.0-16.0); Mean Corpuscular Hemoglobin 28.4 pg (25.0-34.0); Mean Corpuscular Hgb Conc 33.7 g/dL (32.0-36.0); Mean Corpuscular Volume 84.3 fL (80.0-100.0); Mean Platelet Volume 9.6 fL (9.4-12.3); Platelet Count 87 K/uL (130-400); RDW Coefficient of Variation 15.4 % (11.5-14.5); RDW Standard Deviation 47.4 fL (36.4-46.3); White Blood Count 2.36 K/ul (4.8-10.8)
[2022-03-26 07:02] LABS: BUN Creatinine Ratio 20.8 (10-20); Calcium 9.4 mg/dl (8.5-10.1); Creatinine Clr Calc Pharmacy 35.5 ml/min; Est GFR (African American) 46.8 ml/min; Est GFR (Non-African American) 40.4 ml/min; Magnesium 1.7 mg/dl (1.7-2.4); Phosphorus 4.3 mg/dl (2.5-4.9)
[2022-03-26] MEDS: HEPARIN SOD 5,000 UNIT/0.5 ML VIAL SQ SCH ×2 (09:27→20:50)
[2022-03-26] MEDS: ASPIRIN 81 MG ECTAB PO SCH (09:27)
[2022-03-26] MEDS: CLOPIDOGREL BISULFATE 75 MG TAB PO SCH (09:27)
[2022-03-26] MEDS: amLODIPine BESYLATE 5 MG TAB PO SCH (09:27)
[2022-03-26] MEDS: FOLIC ACID 1 MG TAB PO SCH (09:27)
[2022-03-26] MEDS: METOPROLOL SUCC 50MG EXT REL TAB PO SCH (09:27)
[2022-03-26] MEDS: INSULIN ASPART PER UNIT SC SCH ×4 (09:28→20:49)
[2022-03-26] MEDS: RASPBERRY SYRUP 5 ML UDP PO SCH (09:28)
[2022-03-26] MEDS: ROSUVASTATIN CALCIUM 20 MG TAB PO SCH (09:28)
[2022-03-26] MEDS: PANTOprazole 40 MG TAB PO SCH (09:28)
[2022-03-26] MEDS: predniSONE 5 MG TAB PO SCH (09:28)
[2022-03-26] MEDS: FLUTICASONE/VILANTEROL 200/25MCG 14 PUFFS/INHALER INH SCH (09:28)
[2022-03-26] MEDS: VANCOMYCIN HCL 125 MG/2.5ML SOLN PO SCH (09:34)
[2022-03-26] MEDS: THIAMINE HCL 50 MG TABLET PO SCH (10:01)
[2022-03-26] MEDS: DULoxetine HCL 60 MG CAP PO SCH (10:01)
[2022-03-26] MEDS: MAGNESIUM SULFATE / D5W 1 GM/100 ML BAG IV SCH ×2 (10:06→12:06)
[2022-03-26] MEDS ORDERED: COVID-19 VACC, TRIS(PFIZER)/PF 30 MCG/0.3 ML VIAL IM ONE (11:43)
[2022-03-26] MEDS: CEROVITE ADV FORMULA TAB PO SCH (12:34)
[2022-03-26 16:39] LABS: Smudge Cells Present
--- NOTE | 2022-03-26 16:40 | Hospitalist Progress Note ---
Date of Service March 26, 2022 Assessment & Plan (1) Stroke-like symptoms: Plan: Patient is 76 y/o F with PMH CAD, HTN, HLD, DM II, history of C. difficile on chronic vancomycin therapy, ILD, COPD, rheumatoid arthritis on chronic prednisone therapy, CKD III presented to ER 03/21 for difficulty speaking and generalized weakness noted at noon on the day of arrival. Last well known 7:00am 03/21/22. Upon ER presentation patient unable to move extremities and had aphasia both of which improved during ER stay. Had some confusion at presentation. She is being managed for the following: CT Head 03/21: There is no hemorrhage, mass effect, or evidence of acute territorial ischemia CTA Head and neck03/21: Unremarkable CT angiogram of the brain. Unremarkable CT angiogram of the neck noting atherosclerotic calcification of the carotid bulbs. MRI brain 03/21- Acute infarct in the left putamen with associated soft tissue swelling. No midline shift or hemorrhagic transformation is seen. MRI brain 03/25: ordered, pending. Acute ischemic stroke of left basal ganglia- MRI brain shows acute infarct of left putamen - seen by neuro- recommendations noted - ASA/plavix for 21 days from 03/22/22 followed by plavix alone - Increased crestor to 20 mg daily - A1c 6.4, BP elevated- norvasc added - 03/22 Echo with normal EF, no interatrial shunt, mild - PT recommended SNF - Neuro follow up in 8 weeks -LUE weakness noted 03/25 resolved, 03/25 MRI without new acute events. -Pt feels better and back to baseline. Elevated Troponin- trop trend only mildly elevated and flat. No chest pain. Likely demand ischemia. Continue tele. Echo reveiwed Electrolytes abnormality: Monitor and replete, maintain potassium greater than 4 and magnesium greater than 2. CKD III- Cr at baseline of 1.3-1.4 Rheumatoid arthritis- On chronic prednisone 5 mg daily along with hydroxychloro quine hs. Denies any recent flares COPD/ILD- No signs of exacerbation, Continue home inhalers Prediabetes- A1c 6.4. Might benefit from diet modifications and metformin as OP. defer to PCP. SSI prn here. HTN- BP fairly better. Continue metoprolol succinate. Her CKD and risk of hyperkalemia would preclude ACEI. Added norvasc and uptitrated to 10 mg daily with goal BP of <130/80. History C. difficile- On chronic vancomycin Bicytopenia- Leucopenia with neutropenia/Thrombocytopenia- Unclear etiology - PBS 03/24 reviewed, AST minimally elevated but appears to be chronic, no fever, denies any tick bites. Denies any similar prior issues. No new meds except for plavix, heparin, norvasc but doubt these as causative agents as she already had bicytopenia on presentation. Doubt HIT. Will hold plaquenil for now -WBC seems to be improving. Awaiting hematology for further recs. Hyponatremia- mild, stable. DVT Prophylaxis- Heparin SQ Dispo- PT recommended SNF. CM following. Pending hematology evaluation for bicytopenia, likely DC tomorrow. Admission and Anticipated Discharge Date Admission Date: March 21, 2022 Subjective Patient seen and examined at bedside as a follow-up of acute infarcts in the left leg putamen, elevated troponin and electrolytes abnormality. Reports eating good. NAD. On room air. Reports feeling better and does not feel weak or tired. During examination her left accountant strength has returned back to normal. Moving bladder bowel without issues. No fever, chills, rash, shortness of breath, pain. Physical Exam Physical Exam: GENERAL: Alert and oriented x3. NAD, on RA. Appears weak, old and frail. HEENT: No pallor, no icterus. Pupils equal, round and reactive to light. Oral mucosa moist. NECK: No JVD, no neck masses. HEART: S1 and S2 heard. Regular rate and rhythm. No murmur, no gallop. RESPIRATORY SYSTEM: Normal AP diameter. No accessory muscle use. No wheezing, no crackles. ABDOMEN: Soft, bowel sounds present, nontender, no distention. CENTRAL NERVOUS SYSTEM: No facial droop. Speech is clear. Obeys simple commands. Moves extremities. All extremities strength normal. EXTREMITIES: No edema, no erythema seen. Results & Data Results & Data ([facility]) Vital Signs (Past 12 Hours) Vital Signs Temp Pulse Pulse Resp BP Pulse Ox O2 Del Method 03/26/22 14:56 36.8 C 91 H 20 125/78 96 Room Air 03/26/22 12:07 36.5 C 81 20 129/67 99 Room Air 03/26/22 08:30 Room Air 03/26/22 07:42 36.7 C 66 20 125/79 97 Room Air 03/26/22 07:46 65
[2022-03-26] MEDS: MONTELUKAST SODIUM 10 MG TABLET PO SCH (20:51)
[2022-03-26] MEDS: LATANOPROST 0.005% OP SOLN 2.5 ML BTL OP SCH (20:51)
--- NOTE | 2022-03-27 00:39 | Consultation Report ---
DATE OF SERVICE: 03/26/2022. REASON FOR CONSULTATION: Bicytopenia. HISTORY OF PRESENT ILLNESS: Ms. Rodriguez is a pleasant 76-year-old female who presented to the ER at [facility] on 03/21/2022 with stroke-like symptoms. She has a medical history significant for CAD, hypertension, hyperlipidemia, diabetes mellitus type 2, chronic C. difficile infection, on vancomycin therapy, COPD, rheumatoid arthritis. She had presented to the hospital with aphasia. Imaging obtained while in the ER including CT head/CTA Neck on 03/21/2022 was unremarkable. She subsequently had a brain MRI also on 03/21/2022, which revealed acute infarct in the left putamen with associated soft tissue swelling. She was evaluated by neurology who placed her on aspirin and Plavix and increased her Crestor. Hematology was consulted for pancytopenia. At the time of my evaluation of patient today, she denies chest pain, shortness of breath, abdominal pain, nausea, vomiting, fever, chills, night sweats, palpable lymphadenopathy or significant weight loss. HOME MEDICATIONS: 1. Duloxetine. 2. Folic acid. 3. Hydroxychloroquine. 4. Prednisone 5 mg p.o. daily. 5. Vitamin B12 2000 mcg p.o. 3 times a week. 6. Multivitamin. 7. Crestor. 8. Aspirin. 9. Montelukast. 10. Tylenol as needed. 11. Metoprolol 50 mg p.o. daily. 12. Pantoprazole 40 mg p.o. daily. 13. Vancomycin 125 mg p.o. daily. ALLERGIES: 1. METHOTREXATE. 2. PENICILLIN. 3. RANITIDINE. PAST MEDICAL HISTORY: 1. Rheumatoid arthritis. 2. GERD. 3. Dyslipidemia. 4. Diabetes mellitus type 2. 5. Hypertension. 6. Non-STEMI. 7. Peripheral neuropathy. PAST SURGICAL HISTORY: 1. Hysterectomy. 2. Removal of ovarian cyst. 3. Status post left knee total knee arthroplasty. FAMILY HISTORY: Noncontributory. SOCIAL HISTORY: Denies smoking, alcohol and illicit drug use. REVIEW OF SYSTEMS: Unremarkable except as noted above. PHYSICAL EXAMINATION: VITAL SIGNS: Blood pressure 125/78, heart rate 91, respiratory rate 20, temperature 36.8, oxygen saturation 96% on room air. GENERAL: Pleasant female in no obvious respiratory distress. RESPIRATORY: Lung sounds were generally clear bilaterally. CARDIOVASCULAR: Heart was regular rate and rhythm without significant murmur, gallops, or rubs. ABDOMEN: No palpable hepatosplenomegaly. Abdomen was distended with normal bowel sounds. EXTREMITIES: Mild pitting edema bilaterally. LABORATORY DATA: On 03/26/2022 significant for white count of 2.36, hemoglobin of 10.5, hematocrit of 31.2, MCV 84.8, and platelet count of 87,000. IMAGING STUDIES: MRI brain on 03/21/2022, impression: Acute infarct in the left putamen with associated soft tissue swelling. No midline shift or hemorrhagic transformation is seen. ASSESSMENT: 1. Pancytopenia. 2. History of rheumatoid arthritis, previously on hydroxychloroquine and also on low-dose prednisone. 3. Chronic Clostridium difficile infection, on vancomycin. A pleasant 76-year-old female who presented with cerebrovascular accident-like symptoms and was found to have acute infarct in the left putamen. Hematology was consulted for pancytopenia. Based on her clinical history of rheumatoid arthritis, suspect that her pancytopenia is possibly autoimmune in nature. Would, however, recommend ruling out other potential causes of pancytopenia including nutritional causes as well as splenomegaly. As such, recommend checking B12, folate levels as well as iron studies. Given ANC of less than 500 and her history of recurrent infections, she would benefit from GCSF with filgrastim 480 mcg daily x2 days or until ANC greater than 500. Would also recommend obtaining abdominal ultrasound to rule out splenomegaly with possible sequestration. If testing is unremarkable for nutritional/nutritional deficiencies or splenomegaly, highly suspect that this is more due to autoimmune pancytopenia, for which observation would be recommended with plan for bone marrow biopsy if cytopenias worsen. PLAN: 1. Recommend checking vitamin B12, folate, iron studies. Also check SIMONE. 2. Obtain abdominal ultrasound to evaluate for splenomegaly. 3. Please give filgrastim 480 mcg daily x2 days or until ANC greater than 500. 4. If she is found to have iron/vitamin B12 or folate deficiencies, I would recommend repletion and if counts do not improve, we would consider obtaining an outpatient bone marrow biopsy at that time. Thank you for this consult. Hematology will continue following her while she is in the hospital. Please feel free to call if you have any further questions. Job ID: [id number] [facility] HOSPITALRenan
[2022-03-27 07:30] LABS: Hematocrit (blood only) 31.9 % (34.1-44.9); Hemoglobin 10.6 g/dl (12.0-16.0); Mean Corpuscular Hemoglobin 28.3 pg (25.0-34.0); Mean Corpuscular Hgb Conc 33.2 g/dL (32.0-36.0); Mean Corpuscular Volume 85.3 fL (80.0-100.0); Mean Platelet Volume 9.6 fL (9.4-12.3); Platelet Count 95 K/uL (130-400); RDW Coefficient of Variation 15.3 % (11.5-14.5); RDW Standard Deviation 46.8 fL (36.4-46.3); Red Blood Count 3.74 M/uL (3.93-5.22); White Blood Count 3.13 K/ul (4.8-10.8)
[2022-03-27] MEDS: INSULIN ASPART PER UNIT SC SCH ×4 (08:34→21:22)
[2022-03-27] MEDS: amLODIPine BESYLATE 5 MG TAB PO SCH (08:37)
[2022-03-27 08:38] LABS: Basophils # (auto) 0.01 K/uL (0-0.2); Basophils % (auto) 0.3 %; Eosinophils # (auto) 0.08 K/uL (0-0.50); Eosinophils % (auto) 2.6 %; Immature Granulocytes # (auto) 0.02 K/uL (0.00-0.02); Immature Granulocytes % (auto) 0.6 %; Lymphocytes # (auto) 2.11 K/uL (1.2-3.4); Lymphocytes % (auto) 67.4 %; Monocytes # (auto) 0.45 K/uL (0.24-0.82); Monocytes % (auto) 14.4 %; Neutrophils # (auto) 0.46 K/uL (1.4-6.5); Neutrophils % (auto) 14.7 %
[2022-03-27] MEDS: ASPIRIN 81 MG ECTAB PO SCH (08:38)
[2022-03-27] MEDS: DULoxetine HCL 60 MG CAP PO SCH (08:38)
[2022-03-27] MEDS: FLUTICASONE/VILANTEROL 200/25MCG 14 PUFFS/INHALER INH SCH (08:38)
[2022-03-27] MEDS: FOLIC ACID 1 MG TAB PO SCH (08:38)
[2022-03-27] MEDS: CLOPIDOGREL BISULFATE 75 MG TAB PO SCH (08:38)
[2022-03-27] MEDS: predniSONE 5 MG TAB PO SCH (08:39)
[2022-03-27] MEDS: METOPROLOL SUCC 50MG EXT REL TAB PO SCH (08:39)
[2022-03-27] MEDS: THIAMINE HCL 50 MG TABLET PO SCH (08:39)
[2022-03-27] MEDS: PANTOprazole 40 MG TAB PO SCH (08:39)
[2022-03-27] MEDS: HEPARIN SOD 5,000 UNIT/0.5 ML VIAL SQ SCH ×2 (08:39→20:02)
[2022-03-27] MEDS: ROSUVASTATIN CALCIUM 20 MG TAB PO SCH (08:40)
[2022-03-27] MEDS: RASPBERRY SYRUP 5 ML UDP PO SCH (09:14)
[2022-03-27] MEDS: VANCOMYCIN HCL 125 MG/2.5ML SOLN PO SCH (09:15)
--- NOTE | 2022-03-27 10:03 | Ultrasound Report ---
ULTRASOUND OF THE SPLEEN CLINICAL HISTORY: Leukopenia and neutropenia. Thrombocytopenia. COMPARISON STUDY: Abdominal CT dated 09/06/2021. TECHNIQUE: Real-time grayscale sonography of the spleen is performed. Images are reviewed in the blanc sverse and longitudinal planes. FINDINGS: The spleen is normal in size and echotexture, measuring 11.2 cm in length. No splenic lesio n is seen. No perisplenic fluid is identified. Survey images of the left kidney show cortical atrophy without hydronephrosis. IMPRESSION: The spleen is normal in size and echotexture. Electronically signed by: Brigido Gutierrez M.D. 03/27/2022 10:01 AM
[2022-03-27] MEDS: CEROVITE ADV FORMULA TAB PO SCH (12:45)
[2022-03-27] MEDS ORDERED: FILGRASTIM 480 MCG/1.6 ML VIAL SC ONE (14:48)
--- NOTE | 2022-03-27 16:40 | Hospitalist Progress Note ---
Date of Service March 27, 2022 Assessment & Plan (1) Stroke-like symptoms: Plan: Patient is 76 y/o F with PMH CAD, HTN, HLD, DM II, history of C. difficile on chronic vancomycin therapy, ILD, COPD, rheumatoid arthritis on chronic prednisone therapy, CKD III presented to ER 03/21 for difficulty speaking and generalized weakness noted at noon on the day of arrival. Last well known 7:00am 03/21/22. Upon ER presentation patient unable to move extremities and had aphasia both of which improved during ER stay. Had some confusion at presentation. She is being managed for the following: CT Head 03/21: There is no hemorrhage, mass effect, or evidence of acute territorial ischemia CTA Head and neck03/21: Unremarkable CT angiogram of the brain. Unremarkable CT angiogram of the neck noting atherosclerotic calcification of the carotid bulbs. MRI brain 03/21- Acute infarct in the left putamen with associated soft tissue swelling. No midline shift or hemorrhagic transformation is seen. MRI brain 03/25: ordered for new LUE weakness, no new infarct. Acute ischemic stroke of left basal ganglia- MRI brain shows acute infarct of left putamen - seen by neuro- recommendations noted - ASA/plavix for 21 days from 03/22/22 followed by plavix alone - Increased crestor to 20 mg daily - A1c 6.4, BP elevated- norvasc added - 03/22 Echo with normal EF, no interatrial shunt, mild - PT recommended SNF - Neuro follow up in 8 weeks -LUE weakness noted 03/25 resolved, 03/25 MRI without new acute events. -Pt feels better and back to baseline. Elevated Troponin- trop trend only mildly elevated and flat. No chest pain. Likely demand ischemia. Continue tele. Echo reveiwed Electrolytes abnormality: Monitor and replete, maintain potassium greater than 4 and magnesium greater than 2. CKD III- Cr at baseline of 1.3-1.4 Rheumatoid arthritis- On chronic prednisone 5 mg daily along with hydroxychloroquine hs. Denies any recent flares COPD/ILD- No signs of exacerbation, Continue home inhalers Prediabetes- A1c 6.4. Might benefit from diet modifications and metformin as OP. defer to PCP. SSI prn here. HTN- BP fairly better. Continue metoprolol succinate. Her CKD and risk of hyperkalemia would preclude ACEI. Added norvasc and uptitrated to 10 mg daily with goal BP of <130/80. History C. difficile- On chronic vancomycin Bicytopenia- Leucopenia with neutropenia/Thrombocytopenia- Unclear etiology - PBS 03/24 reviewed, AST minimally elevated but appears to be chronic, no fever, denies any tick bites. Denies any similar prior issues. No new meds except for plavix, heparin, norvasc but doubt these as causative agents as she already had bicytopenia on presentation. Doubt HIT. Will hold plaquenil for now -WBC seems to be improving. Await B12/folate levels. LUQ US w/ nl spleen. Hemat evaled, s/p 1 dose filgrastim 03/27, CBC w/ diff in AM, iron studies sent, appreciate recs. OP Hemat f/u. Hyponatremia- mild, stable. DVT Prophylaxis- Heparin SQ Dispo- PT recommended SNF. CM following. Pending hematology evaluation for bicytopenia, likely DC tomorrow. Admission and Anticipated Discharge Date Admission Date: March 21, 2022 Subjective Patient seen and examined at bedside as a follow-up of acute infarcts in the left leg putamen, elevated troponin and electrolytes abnormality. Reports eating good. NAD. On room air. Reports feeling better and back to baseline. No new focal weakness. Moving bladder bowel without issues. No fever, chills, rash, shortness of breath, pain. Physical Exam Physical Exam: GENERAL: Alert and oriented x3. NAD, on RA. Appears weak, old and frail. HEENT: No pallor, no icterus. Pupils equal, round and reactive to light. Oral mucosa moist. NECK: No JVD, no neck masses. HEART: S1 and S2 heard. Regular rate and rhythm. No murmur, no gallop. RESPIRATORY SYSTEM: Normal AP diameter. No accessory muscle use. No wheezing, no crackles. ABDOMEN: Soft, bowel sounds present, nontender, no distention. CENTRAL NERVOUS SYSTEM: No facial droop. Speech is clear. Obeys simple commands. Moves extremities. All extremities strength normal. EXTREMITIES: No edema, no erythema seen. Results & Data Results & Data ([facility]) Vital Signs (Past 12 Hours) Vital Signs Temp Pulse Pulse Resp BP Pulse Ox O2 Del Method 03/27/22 15:51 36.6 C 77 19 150/72 H 98 Room Air 03/27/22 15:42 36.8 C 67 17 152/77 H 98 Room Air 03/27/22 15:35 36.8 C 67 19 152/77 H 98 Room Air 03/27/22 08:46 36.3 C L 74 18 137/59 L 96 Room Air 03/27/22 08:30 36.9 C 75 16 150/73 H 98 Room Air 03/27/22 08:08 71
[2022-03-27] MEDS: MONTELUKAST SODIUM 10 MG TABLET PO SCH (20:02)
[2022-03-27] MEDS: LATANOPROST 0.005% OP SOLN 2.5 ML BTL OP SCH (20:03)
[2022-03-27 23:09] LABS: Folate (Folic Acid) > 22.30 ng/ml (>5.38)
[2022-03-27 23:10] LABS: Vitamin B12 > 1500 pg/ml (180-914)
[2022-03-28] MEDS: ACETAMINOPHEN 325 MG TAB PO PRN (04:29)
[2022-03-28 06:11] LABS: Hemoglobin 10.2 g/dl (12.0-16.0); Mean Corpuscular Volume 85.2 fL (80.0-100.0); Mean Platelet Volume 9.9 fL (9.4-12.3); Nucleated RBC # (auto) 0.02 K/uL (0-0); Nucleated RBC % (auto) 0.4 %; Platelet Count 108 K/uL (130-400); RDW Coefficient of Variation 15.6 % (11.5-14.5); RDW Standard Deviation 47.7 fL (36.4-46.3); Red Blood Count 3.52 M/uL (3.93-5.22); White Blood Count 5.11 K/ul (4.8-10.8)
[2022-03-28 06:59] LABS: Ferritin 107.1 ng/ml (8-388)
[2022-03-28 07:04] LABS: Albumin Globulin Ratio 0.9 (0.9-2); Albumin Level 3.2 gm/dl (3.4-5.0); BUN Creatinine Ratio 22.4 (10-20); Bilirubin,Total 0.4 mg/dl (0.2-1.0); Calcium 9.6 mg/dl (8.5-10.1); Creatinine Clr Calc Pharmacy 34.5 ml/min; Est GFR (African American) 45.1 ml/min; Est GFR (Non-African American) 38.9 ml/min; Globulin 3.6 gm/dl (2.5-4.0); Magnesium 1.6 mg/dl (1.7-2.4); Potassium 4.1 mmol/L (3.5-5.1); Total Protein 6.8 gm/dl (6.0-8.3)
[2022-03-28 07:18] LABS: Basophils # (auto) 0.02 K/uL (0-0.2); Basophils % (auto) 0.4 %; Eosinophils # (auto) 0.06 K/uL (0-0.50); Eosinophils % (auto) 1.2 %; Immature Granulocytes # (auto) 0.05 K/uL (0.00-0.02); Lymphocytes # (auto) 1.28 K/uL (1.2-3.4); Monocytes # (auto) 0.58 K/uL (0.24-0.82); Monocytes % (auto) 11.4 %; Neutrophils # (auto) 3.12 K/uL (1.4-6.5)
--- NOTE | 2022-03-28 07:35 | XRay Report ---
XR chest 1V portable CLINICAL HISTORY: fever. COMPARISON STUDY: 03/21/2022 TECHNIQUE: 1 view of the chest FINDINGS: Single frontal view of the chest demonstrates the cardiomediastinal silhouette to be within normal li mits. There is a decreased inspiratory effort with elevation of the hemidiaphragms and crowding of th e bronchovascular markings at the lung bases and centrally. The lungs are clear of alveolar opacities . There is no evidence for pleural effusion. There is no evidence for vascular congestion. There is n o acute osseous pathology. IMPRESSION: 1. There is a decreased inspiratory effort with otherwise no acute chest disease. ACT 112: Negative or not required by law. Electronically signed by: Niranjan Yi M.D. 03/28/2022 7:34 AM
[2022-03-28] MEDS ORDERED: VANCOMYCIN CONSULT ACTIVE PRN (07:36)
[2022-03-28] MEDS: predniSONE 5 MG TAB PO SCH (07:55)
[2022-03-28] MEDS: amLODIPine BESYLATE 5 MG TAB PO SCH (07:55)
[2022-03-28] MEDS: FOLIC ACID 1 MG TAB PO SCH (07:55)
[2022-03-28] MEDS: PANTOprazole 40 MG TAB PO SCH (07:56)
[2022-03-28] MEDS: RASPBERRY SYRUP 5 ML UDP PO SCH (07:56)
[2022-03-28] MEDS: THIAMINE HCL 50 MG TABLET PO SCH (07:56)
[2022-03-28] MEDS: METOPROLOL SUCC 50MG EXT REL TAB PO SCH (07:56)
[2022-03-28] MEDS: ASPIRIN 81 MG ECTAB PO SCH (07:56)
[2022-03-28] MEDS: CLOPIDOGREL BISULFATE 75 MG TAB PO SCH (07:56)
[2022-03-28] MEDS: ROSUVASTATIN CALCIUM 20 MG TAB PO SCH (07:56)
[2022-03-28] MEDS: DULoxetine HCL 60 MG CAP PO SCH (07:57)
[2022-03-28] MEDS: CEROVITE ADV FORMULA TAB PO SCH (07:57)
[2022-03-28] MEDS: HEPARIN SOD 5,000 UNIT/0.5 ML VIAL SQ SCH ×2 (07:57→20:05)
[2022-03-28] MEDS: FLUTICASONE/VILANTEROL 200/25MCG 14 PUFFS/INHALER INH SCH (07:57)
[2022-03-28] MEDS: VANCOMYCIN HCL 125 MG/2.5ML SOLN PO SCH (08:05)
[2022-03-28] MEDS ORDERED: VANCOMYCIN HCL 1,250 MG in SODIUM CHLORIDE 0.9% 250 ML IV ONE (09:00)
[2022-03-28] MEDS: INSULIN ASPART PER UNIT SC SCH ×4 (09:02→20:05)
[2022-03-28] MEDS: MAGNESIUM SULFATE / D5W 1 GM/100 ML BAG IV SCH ×2 (10:33→12:48)
[2022-03-28] MEDS: CEFEPIME 2,000 MG in SYRINGE 0 ML IV SCH ×2 (10:33→20:04)
--- NOTE | 2022-03-28 11:13 | Pharmacy Report ---
Pharmacy PK ABX Note - Date of Service March 28, 2022 - Assessment and Plan Assessment 76 year old F admitted for stroke and found to be with pancytopenia. Patient is on chronic prednisone and hydroxychloroquine for rheumatoid arthritis. She has history of C.diff and on chronic therapy with oral Vancomycin. CKD stage 3, baseline serum creat 1.3-1.4. Currently patient with fevers. Vancomycin IV ordered empirically to rule out infection. Blood cultures obtained. Plan Vancomycin * Loading dose: 1250 mg (21 mg/kg) IV x1 given today AM * Maintenance dose: 750 mg (12.6 mg/kg) IV every 24 hours for 48 hrs (empiric). * Regimen is predicted to achieve target AUC/WILLIE of 400-600 mg/L.hr * Vancomycin level will only be ordered if therapy continues beyond 48 hrs. Pharmacy will continue to follow and will adjust dose/frequency as necessary. Thank you.
[2022-03-28 16:25] LABS: Appearance Urine Clear (Clear); Bilirubin Urine Negative (Negative); Blood Urine Negative (Negative); Color Urine Yellow; Glucose Urine UA Negative (Negative); Ketones Urine Negative (Negative); Leukocyte Esterase Urine Negative (Negative); Nitrite Urine Negative (Negative); Protein Urine Negative (Negative); Specific Gravity Urine 1.008 (1.000-1.030); Urobilinogen Urine Negative (Negative); pH Urine 5.5 (4.5-7.5)
--- NOTE | 2022-03-28 17:05 | Hospitalist Progress Note ---
Date of Service March 28, 2022 Assessment & Plan (1) Stroke-like symptoms: Plan: Patient is 76 y/o F with PMH CAD, HTN, HLD, DM II, history of C. difficile on chronic vancomycin therapy, ILD, COPD, rheumatoid arthritis on chronic prednisone therapy, CKD III presented to ER 03/21 for difficulty speaking and generalized weakness noted at noon on the day of arrival. Last well known 7:00am 03/21/22. Upon ER presentation patient unable to move extremities and had aphasia both of which improved during ER stay. Had some confusion at presentation. She is being managed for the following: CT Head 03/21: There is no hemorrhage, mass effect, or evidence of acute territorial ischemia CTA Head and neck03/21: Unremarkable CT angiogram of the brain. Unremarkable CT angiogram of the neck noting atherosclerotic calcification of the carotid bulbs. MRI brain 03/21- Acute infarct in the left putamen with associated soft tissue swelling. No midline shift or hemorrhagic transformation is seen. MRI brain 03/25: ordered for new LUE weakness, no new infarct. Acute ischemic stroke of left basal ganglia- MRI brain shows acute infarct of left putamen - seen by neuro- recommendations noted - ASA/plavix for 21 days from 03/22/22 followed by plavix alone - Increased crestor to 20 mg daily - A1c 6.4, BP elevated- norvasc added - 03/22 Echo with normal EF, no interatrial shunt, mild - PT recommended SNF - Neuro follow up in 8 weeks - LUE weakness noted 03/25 resolved, 03/25 MRI without new acute events. - Pt feels better and back to baseline. #. Elevated Temperature: Temp elevated to 39.4 C and 38.2 C early am of 03/28, pt had received neupogen around 4 PM of 03/27. Could be from neupogen vs infection, infxn w/u is underway. Temp went down to 36.5 later in AM before any empiric antibiotics were given, Pt didn't look septic/acutely ill at bedside exam on 03/28 AM WBC is in normal range 03/28 (unusual given she has been leucopenia recently, but got neupogen 03/27), 03/28 procal was elevated. Hence empiric ATB started 03/28 w/ cefepime and vanco 03/28 UA/CXR w/ no acute findings. Await 03/28 blood culture, trend procal . Elevated Troponin- trop trend only mildly elevated and flat. No chest pain. Likely demand ischemia. Continue tele. Echo reveiwed Electrolytes abnormality: Monitor and replete, maintain potassium greater than 4 and magnesium greater than 2. CKD III- Cr at baseline of 1.3-1.4 Rheumatoid arthritis- On chronic prednisone 5 mg daily along with hydroxychloroquine hs. Denies any recent flares COPD/ILD- No signs of exacerbation, Continue home inhalers Prediabetes- A1c 6.4. Might benefit from diet modifications and metformin as OP. defer to PCP. SSI prn here. HTN- BP fairly better. Continue metoprolol succinate. Her CKD and risk of hyperk alemia would preclude ACEI. Added norvasc and uptitrated to 10 mg daily with goal BP of <130/80. History C. difficile- On chronic vancomycin Bicytopenia- Leucopenia with neutropenia/Thrombocytopenia- Unclear etiology - PBS 03/24 reviewed, AST minimally elevated but appears to be chronic, no fever, denies any tick bites. Denies any similar prior issues. No new meds except for plavix, heparin, norvasc but doubt these as causative agents as she already had bicytopenia on presentation. Doubt HIT. Will hold plaquenil for now -WBC wnl, Iron profile w/ vitamin levels WNL.LUQ US w/ nl spleen. Hemat evaled, s/p 1 dose filgrastim 03/27, appreciate recs. OP Hemat f/u. Hyponatremia- mild, stable. DVT Prophylaxis- Heparin SQ Dispo- PT recommended SNF. CM following. Pending infectious w/u, likely DC in next 1-2 days. 03/28: Tried to call patient's Florencio Rodriguez [[phone]], went into voicemail, could not leave message due to voicemail being full. Admission and Anticipated Discharge Date Admission Date: March 21, 2022 Subjective Patient seen and examined at bedside as a follow-up of acute infarcts in the left putamen, elevated troponin and electrolytes abnormality. Reports eating good. NAD. On room air. Reports feeling better and back to baseline. No new focal weakness. Denies any new discomfort overnight but upon chart review patient had temperature of 39.4 C and 38.2 C. Moving bladder bowel without issues. No chills, rash, shortness of breath, pain or other ROS. No infective skin lesions noted. Physical Exam Physical Exam: GENERAL: Alert and oriented x3. NAD, on RA. Appears weak, old and frail. HEENT: No pallor, no icterus. Pupils equal, round and reactive to light. Oral mucosa moist. NECK: No JVD, no neck masses. HEART: S1 and S2 heard. Regular rate and rhythm. No murmur, no gallop. RESPIRATORY SYSTEM: Normal AP diameter. No accessory muscle use. No wheezing, no crackles. ABDOMEN: Soft, bowel sounds present, nontender, no distention. CENTRAL NERVOUS SYSTEM: No facial droop. Speech is clear. Obeys simple commands. Moves extremities. All extremities strength normal. EXTREMITIES: No edema, no erythema seen. Results & Data Results & Data ([facility]) Vital Signs (Past 12 Hours) Vital Signs Temp Pulse Pulse Pulse Resp BP Pulse Ox 03/28/22 16:09 36.1 C L 66 16 147/76 H 98 03/28/22 15:15 72 03/28/22 11:18 36.4 C L 75 18 112/61 98 03/28/22 08:00 82 03/28/22 07:44 36.5 C 75 18 137/74 98 03/28/22 05:03 38.2 C H 174/72 H O2 Del Method 03/28/22 16:09 Room Air 03/28/22 15:15 03/28/22 11:18 Room Air 03/28/22 08:00 03/28/22 07:44 Room Air 03/28/22 05:03
[2022-03-28] MEDS: LATANOPROST 0.005% OP SOLN 2.5 ML BTL OP SCH (20:05)
[2022-03-28] MEDS: MONTELUKAST SODIUM 10 MG TABLET PO SCH (20:06)
[2022-03-29] MEDS: VANCOMYCIN HCL 750 MG in SODIUM CHLORIDE 0.9% 250 ML IV SCH (05:51)
[2022-03-29 06:39] LABS: Hematocrit (blood only) 29.6 % (34.1-44.9); Hemoglobin 9.9 g/dl (12.0-16.0); Mean Corpuscular Hemoglobin 28.4 pg (25.0-34.0); Mean Corpuscular Hgb Conc 33.4 g/dL (32.0-36.0); Mean Corpuscular Volume 85.1 fL (80.0-100.0); Mean Platelet Volume 9.7 fL (9.4-12.3); Platelet Count 95 K/uL (130-400); RDW Standard Deviation 48.5 fL (36.4-46.3); Red Blood Count 3.48 M/uL (3.93-5.22); White Blood Count 2.49 K/ul (4.8-10.8)
[2022-03-29 07:04] LABS: BUN Creatinine Ratio 20.3 (10-20); Calcium 9.3 mg/dl (8.5-10.1); Creatinine Clr Calc Pharmacy 34.7 ml/min; Est GFR (African American) 45.5 ml/min; Est GFR (Non-African American) 39.3 ml/min; Magnesium 2.1 mg/dl (1.7-2.4); Phosphorus 3.4 mg/dl (2.5-4.9); Potassium 4.1 mmol/L (3.5-5.1)
[2022-03-29] MEDS: VANCOMYCIN HCL 125 MG/2.5ML SOLN PO SCH (07:49)
[2022-03-29] MEDS: CEFEPIME 2,000 MG in SYRINGE 0 ML IV SCH ×2 (07:49→19:23)
[2022-03-29] MEDS: RASPBERRY SYRUP 5 ML UDP PO SCH (07:50)
[2022-03-29] MEDS: ASPIRIN 81 MG ECTAB PO SCH (07:50)
[2022-03-29] MEDS: predniSONE 5 MG TAB PO SCH (07:50)
[2022-03-29] MEDS: FOLIC ACID 1 MG TAB PO SCH (07:50)
[2022-03-29] MEDS: PANTOprazole 40 MG TAB PO SCH (07:50)
[2022-03-29] MEDS: METOPROLOL SUCC 50MG EXT REL TAB PO SCH (07:51)
[2022-03-29] MEDS: THIAMINE HCL 50 MG TABLET PO SCH (07:51)
[2022-03-29] MEDS: amLODIPine BESYLATE 5 MG TAB PO SCH (07:51)
[2022-03-29] MEDS: ROSUVASTATIN CALCIUM 20 MG TAB PO SCH (07:51)
[2022-03-29] MEDS: DULoxetine HCL 60 MG CAP PO SCH (07:52)
[2022-03-29] MEDS: HEPARIN SOD 5,000 UNIT/0.5 ML VIAL SQ SCH ×2 (07:52→20:05)
[2022-03-29] MEDS: CLOPIDOGREL BISULFATE 75 MG TAB PO SCH (07:52)
[2022-03-29] MEDS: FLUTICASONE/VILANTEROL 200/25MCG 14 PUFFS/INHALER INH SCH (07:53)
[2022-03-29] MEDS: INSULIN ASPART PER UNIT SC SCH ×4 (08:10→20:32)
[2022-03-29 09:55] LABS: Basophils # (auto) 0.03 K/uL (0-0.2); Basophils % (auto) 1.2 %; Eosinophils # (auto) 0.13 K/uL (0-0.50); Eosinophils % (auto) 5.2 %; Immature Granulocytes # (auto) 0.02 K/uL (0.00-0.02); Immature Granulocytes % (auto) 0.8 %; Lymphocytes # (auto) 1.39 K/uL (1.2-3.4); Lymphocytes % (auto) 55.8 %; Monocytes # (auto) 0.42 K/uL (0.24-0.82); Monocytes % (auto) 16.9 %; Neutrophils % (auto) 20.1 %
[2022-03-29] MEDS: CEROVITE ADV FORMULA TAB PO SCH (12:28)
[2022-03-29] MEDS: FILGRASTIM 480 MCG/1.6 ML VIAL SC SCH (14:34)
--- NOTE | 2022-03-29 16:13 | Hospitalist Progress Note ---
Date of Service March 29, 2022 Assessment & Plan (1) Stroke-like symptoms: Plan: Patient is 76 y/o F with PMH CAD, HTN, HLD, DM II, history of C. difficile on chronic vancomycin therapy, ILD, COPD, rheumatoid arthritis on chronic prednisone therapy, CKD III presented to ER 03/21 for difficulty speaking and generalized weakness noted at noon on the day of arrival. Last well known 7:00am 03/21/22. Upon ER presentation patient unable to move extremities and had aphasia both of which improved during ER stay. Had some confusion at presentation. She is being managed for the following: CT Head 03/21: There is no hemorrhage, mass effect, or evidence of acute territorial ischemia CTA Head and neck03/21: Unremarkable CT angiogram of the brain. Unremarkable CT angiogram of the neck noting atherosclerotic calcification of the carotid bulbs. MRI brain 03/21- Acute infarct in the left putamen with associated soft tissue swelling. No midline shift or hemorrhagic transformation is seen. MRI brain 03/25: ordered for new LUE weakness, no new infarct. Acute ischemic stroke of left basal ganglia- MRI brain shows acute infarct of left putamen - seen by neuro- recommendations noted - ASA/plavix for 21 days from 03/22/22 followed by plavix alone - c/w Increased crestor 20 mg daily - A1c 6.4, BP elevated- norvasc added 03/24 - 03/22 Echo with normal EF, no interatrial shunt, mild - PT recommended SNF - Neuro follow up in 8 weeks - LUE weakness noted 03/25 resolved, 03/25 MRI without new acute events. - Pt feels better and back to baseline with regard to strength. #. Elevated Temperature: Temp elevated to 39.4 C and 38.2 C early am of 03/28, pt had received neupogen around 4 PM of 03/27. Could be from neupogen vs infection Exam before atb given early AM of 03/27, Temp went down to 36.5 and Pt didn't appear septic/acutely ill at bedside exam. 03/28 infection w/u: WBC wnl (has leucopenia at baseline), procal elevated. UA and CXR wnl. No infection noted on skin exam. Blood Cx negative so far. Pt afebrile last 24 hours, on empiric antibiotic 03/28 cefepime and vancomycin, reports feeling tired, trend Pro-Seng in a.m. and follow-up blood culture. Elevated Troponin- trop trend only mildly elevated and flat. No chest pain. Likely demand ischemia. Continue tele. Echo reviewed Electrolytes abnormality: Monitor and replete, maintain potassium greater than 4 and magnesium greater than 2. CKD III- Cr at baseline of 1.3-1.4 Rheumatoid arthritis- On chronic prednisone 5 mg daily along with hydroxychloroquine hs. Denies any recent flares COPD/ILD- No signs of exacerbation, Continue home inhalers Prediabetes- A1c 6.4. Might benefit from diet modifications and metformin as OP. defer to PCP. SSI prn here. HTN- BP fairly better. Continue metoprolol succinate. Her CKD and risk of hyperkalemia would preclude ACEI. Added norvasc 03/24 and uptitrated to 10 mg daily with goal BP of <130/80. History C. difficile- On chronic vancomycin Bicytopenia- Leucopenia with neutropenia/Thrombocytopenia- Unclear etiology - PBS 03/24 reviewed, AST minimally elevated but appears to be chronic, no fever early on, denies any tick bites. Denies any similar prior issues. No new meds except for plavix, heparin, norvasc but doubt these as causative agents as she already had bicytopenia on presentation. Doubt HIT. Will hold plaquenil for now. Iron profile with vitamin levels WNL. LUQ ultrasound with normal spleen. Patient received a dose of filgrastim 03/27 p.m. around 4 PM. WBC WNL 03/28, leukopenic again today with ANC of 500, discussed with civil engineer helper, will give 2 more doses of filgrastim. Patient will need outpatient follow-up with hematology. Hyponatremia- mild, stable. DVT Prophylaxis- Heparin SQ Dispo- PT recommended SNF. CM following. Pending infectious w/u, likely DC bob. 03/28: Tried to call patient's Florencio Rodriguez [[phone]], went into voicemail, could not leave message due to voicemail being full. Admission and Anticipated Discharge Date Admission Date: March 21, 2022 Subjective Patient seen and examined at bedside as a follow-up of acute infarcts in the left putamen, elevated troponin and electrolytes abnormality. Reports eating good. NAD. On room air. Afebrile last 24 hours, patient reports feeling tired. No new focal weakness. Denies any new discomfort overnight. Moving bladder bowel without issues. No chills, rash, shortness of breath, pain or other ROS. No infective skin lesions noted. Physical Exam Physical Exam: GENERAL: Alert and oriented x3. NAD, on RA. Appears weak, old and frail. HEENT: No pallor, no icterus. Pupils equal, round and reactive to light. Oral mucosa moist. NECK: No JVD, no neck masses. HEART: S1 and S2 heard. Regular rate and rhythm. No murmur, no gallop. RESPIRATORY SYSTEM: Normal AP diameter. No accessory muscle use. No wheezing, no crackles. ABDOMEN: Soft, bowel sounds present, nontender, no distention. CENTRAL NERVOUS SYSTEM: No facial droop. Speech is clear. Obeys simple commands. Moves extremities. All extremities strength normal. EXTREMITIES: No edema, no erythema seen. Results & Data Results & Data ([facility]) Vital Signs (Past 12 Hours) Vital Signs Temp Pulse Pulse Resp BP Pulse Ox O2 Del Method 03/29/22 15:55 37.1 C 74 18 132/79 97 Room Air 03/29/22 15:21 76 03/29/22 12:10 36.8 C 90 18 124/66 96 03/29/22 08:00 68 03/29/22 07:43 36.5 C 70 18 116/65 100
[2022-03-29] MEDS: ACETAMINOPHEN 325 MG TAB PO PRN (19:23)
[2022-03-29] MEDS: MELATONIN 3 MG TAB PO SCH (20:04)
[2022-03-29] MEDS: MONTELUKAST SODIUM 10 MG TABLET PO SCH (20:04)
[2022-03-29] MEDS: LATANOPROST 0.005% OP SOLN 2.5 ML BTL OP SCH (20:05)
[2022-03-30] MEDS: VANCOMYCIN HCL 750 MG in SODIUM CHLORIDE 0.9% 250 ML IV SCH (05:59)
[2022-03-30] MEDS: VANCOMYCIN HCL 125 MG/2.5ML SOLN PO SCH (07:28)
[2022-03-30] MEDS: amLODIPine BESYLATE 5 MG TAB PO SCH (07:29)
[2022-03-30] MEDS: RASPBERRY SYRUP 5 ML UDP PO SCH (07:29)
[2022-03-30] MEDS: PANTOprazole 40 MG TAB PO SCH (07:29)
[2022-03-30] MEDS: DULoxetine HCL 60 MG CAP PO SCH (07:30)
[2022-03-30] MEDS: METOPROLOL SUCC 50MG EXT REL TAB PO SCH (07:30)
[2022-03-30] MEDS: FOLIC ACID 1 MG TAB PO SCH (07:30)
[2022-03-30] MEDS: ASPIRIN 81 MG ECTAB PO SCH (07:30)
[2022-03-30] MEDS: ROSUVASTATIN CALCIUM 20 MG TAB PO SCH (07:31)
[2022-03-30] MEDS: CLOPIDOGREL BISULFATE 75 MG TAB PO SCH (07:31)
[2022-03-30] MEDS: HEPARIN SOD 5,000 UNIT/0.5 ML VIAL SQ SCH ×2 (07:32→20:21)
[2022-03-30] MEDS: predniSONE 5 MG TAB PO SCH (07:32)
[2022-03-30] MEDS: THIAMINE HCL 50 MG TABLET PO SCH (07:32)
[2022-03-30] MEDS: FLUTICASONE/VILANTEROL 200/25MCG 14 PUFFS/INHALER INH SCH (07:32)
[2022-03-30 07:46] LABS: Hematocrit (blood only) 30.7 % (34.1-44.9); Hemoglobin 10.2 g/dl (12.0-16.0); Mean Corpuscular Hemoglobin 28.7 pg (25.0-34.0); Mean Corpuscular Hgb Conc 33.2 g/dL (32.0-36.0); Mean Corpuscular Volume 86.5 fL (80.0-100.0); Nucleated RBC # (auto) 0.03 K/uL (0-0); Nucleated RBC % (auto) 0.9 %; Platelet Count 92 K/uL (130-400); RDW Coefficient of Variation 16.1 % (11.5-14.5); Red Blood Count 3.55 M/uL (3.93-5.22); White Blood Count 3.23 K/ul (4.8-10.8)
[2022-03-30 07:54] LABS: BUN Creatinine Ratio 19.9 (10-20); Calcium 9.4 mg/dl (8.5-10.1); Est GFR (African American) 44.3 ml/min; Est GFR (Non-African American) 38.2 ml/min
[2022-03-30 08:24] LABS: Basophils # (auto) 0.03 K/uL (0-0.2); Basophils % (auto) 0.9 %; Eosinophils # (auto) 0.16 K/uL (0-0.50); Immature Granulocytes # (auto) 0.05 K/uL (0.00-0.02); Immature Granulocytes % (auto) 1.5 %; Lymphocytes # (auto) 1.24 K/uL (1.2-3.4); Lymphocytes % (auto) 38.4 %; Monocytes # (auto) 0.54 K/uL (0.24-0.82); Monocytes % (auto) 16.7 %; Neutrophils # (auto) 1.21 K/uL (1.4-6.5); Neutrophils % (auto) 37.5 %; Polychromasia 1+; Toxic Vacuolation 1+
[2022-03-30] MEDS: INSULIN ASPART PER UNIT SC SCH ×4 (09:28→20:20)
[2022-03-30] MEDS: CEROVITE ADV FORMULA TAB PO SCH (12:54)
[2022-03-30] MEDS: FILGRASTIM 480 MCG/1.6 ML VIAL SC SCH (12:54)
--- NOTE | 2022-03-30 18:02 | Hospitalist Progress Note ---
Date of Service March 30, 2022 Assessment & Plan (1) Stroke-like symptoms: Plan: Patient is 76 y/o F with PMH CAD, HTN, HLD, DM II, history of C. difficile on chronic vancomycin therapy, ILD, COPD, rheumatoid arthritis on chronic prednisone therapy, CKD III presented to ER 03/21 for difficulty speaking and generalized weakness noted at noon on the day of arrival. Last well known 7:00am 03/21/22. Upon ER presentation patient unable to move extremities and had aphasia both of which improved during ER stay. Had some confusion at presentation. She is being managed for the following: CT Head 03/21: There is no hemorrhage, mass effect, or evidence of acute territorial ischemia CTA Head and neck03/21: Unremarkable CT angiogram of the brain. Unremarkable CT angiogram of the neck noting atherosclerotic calcification of the carotid bulbs. MRI brain 03/21- Acute infarct in the left putamen with associated soft tissue swelling. No midline shift or hemorrhagic transformation is seen. MRI brain 03/25: ordered for new LUE weakness, no new infarct. Acute ischemic stroke of left basal ganglia- MRI brain shows acute infarct of left putamen - seen by neuro- recommendations noted - ASA/plavix for 21 days from 03/22/22 followed by plavix alone - c/w Increased crestor 20 mg daily - A1c 6.4, BP elevated- norvasc added 03/24 - 03/22 Echo with normal EF, no interatrial shunt, mild - PT recommended SNF - Neuro follow up in 8 weeks - LUE weakness noted 03/25 resolved, 03/25 MRI without new acute events. - Pt feels better and back to baseline with regard to strength. #. Elevated Temperature: Temp elevated to 39.4 C and 38.2 C early am of 03/28, pt had received neupogen around 4 PM of 03/27. Could be from neupogen vs infection Exam before atb given early AM of 03/27, Temp went down to 36.5 and Pt didn't appear septic/acutely ill at bedside exam. 03/28 infection w/u: WBC wnl (has leucopenia at baseline), procal elevated. UA and CXR wnl. No infection noted on skin exam. Blood Cx negative so far. Pt afebrile last 48 hours, empiric antibiotic 03/28-03/29 w/ cefepime and vancomycin, reports feeling tired, trend Pro-Seng in a.m. and follow-up blood culture. Bl Cx NG 48 hrs, procal trending down d/w pt's 03/30, she had this fever maybe weekly since last few weeks 3-5 wks and resolves on its own on the same day. Sending blood parasite smear 03/30, monitor off of antibiotic, continued f/u as OP, ?? ID. Elevated Troponin- trop trend only mildly elevated and flat. No chest pain. Likely demand ischemia. Continue tele. Echo reviewed Electrolytes abnormality: Monitor and replete, maintain potassium greater than 4 and magnesium greater than 2. CKD III- Cr at baseline of 1.3-1.4 Rheumatoid arthritis- On chronic prednisone 5 mg daily along with hydroxychloroquine hs. Denies any recent flares COPD/ILD- No signs of exacerbation, Continue home inhalers Prediabetes- A1c 6.4. Might benefit from diet modifications and metformin as OP. defer to PCP. SSI prn here. HTN- BP fairly better. Continue metoprolol succinate. Her CKD and risk of hyperkalemia would preclude ACEI. Added norvasc 03/24 and uptitrated to 10 mg daily with goal BP of <130/80. History C. difficile- On chronic vancomycin Bicytopenia- Leucopenia with neutropenia/Thrombocytopenia- Unclear etiology - PBS 03/24 reviewed, AST minimally elevated but appears to be chronic, no fever early on, denies any tick bites. Denies any similar prior issues. No new meds except for plavix, heparin, norvasc but doubt these as causative agents as she already had bicytopenia on presentation. Doubt HIT. C/t hold plaquenil for now. Iron profile with vitamin levels WNL. LUQ ultrasound with normal spleen. Patient received a dose of filgrastim 03/27 p.m. around 4 PM. Covid booster vaccine on 03/26 pm. WBC WNL 03/28, leukopenic again today with ANC improved, due to get another neupogen today. Patient will need outpatient follow-up with hematology. Likely will need BM biopsy. Hyponatremia- mild, stable. DVT Prophylaxis- Heparin SQ Dispo- PT recommended SNF. CM following. Pending infectious w/u, likely DC bob. 03/30: Updated Pt's at bedside, answered all his questions. Admission and Anticipated Discharge Date Admission Date: March 21, 2022 Subjective Patient seen and examined at bedside as a follow-up of acute infarcts in the left putamen, elevated troponin and electrolytes abnormality. Reports eating good. NAD. On room air. Afebrile last 2 days, patient reports feeling tired, similar to before. No new focal weakness. Denies any new discomfort overnight. Is pleasantly confused in AM, improving by the day. Moving bladder bowel without issues. No chills, rash, shortness of breath, pain or other ROS. No infective skin lesions noted. Physical Exam Physical Exam: GENERAL: Pleasantly confused, improved during later eval. NAD, on RA. Appears weak, old and frail. HEENT: No pallor, no icterus. Pupils equal, round and reactive to light. Oral mucosa moist. NECK: No JVD, no neck masses. HEART: S1 and S2 heard. Regular rate and rhythm. No murmur, no gallop. RESPIRATORY SYSTEM: Normal AP diameter. No accessory muscle use. No wheezing, no crackles. ABDOMEN: Soft, bowel sounds present, nontender, no distention. CENTRAL NERVOUS SYSTEM: No facial droop. Speech is clear. Obeys simple commands. Moves extremities. All extremities strength normal. EXTREMITIES: No edema, no erythema seen. Results & Data Results & Data ([facility]) Vital Signs (Past 12 Hours) Vital Signs Temp Pulse Pulse Resp BP BP Pulse Ox 03/30/22 14:57 79 03/30/22 08:00 64 03/30/22 15:37 36.8 C 75 18 110/70 97 03/30/22 11:51 36.9 C 80 17 142/74 H 95 03/30/22 08:12 36.7 C 72 18 132/57 L 98 O2 Del Method 03/30/22 14:57 03/30/22 08:00 03/30/22 15:37 Room Air 03/30/22 11:51 Room Air 03/30/22 08:12 Room Air
[2022-03-30] MEDS: MELATONIN 3 MG TAB PO SCH (20:20)
[2022-03-30] MEDS: MONTELUKAST SODIUM 10 MG TABLET PO SCH (20:20)
[2022-03-30] MEDS: LATANOPROST 0.005% OP SOLN 2.5 ML BTL OP SCH (20:20)
[2022-03-31 07:06] LABS: Hemoglobin 10.7 g/dl (12.0-16.0); Mean Corpuscular Hemoglobin 28.5 pg (25.0-34.0); Mean Corpuscular Hgb Conc 33.4 g/dL (32.0-36.0); Mean Corpuscular Volume 85.3 fL (80.0-100.0); Mean Platelet Volume 9.8 fL (9.4-12.3); Nucleated RBC # (auto) 0.05 K/uL (0-0); Nucleated RBC % (auto) 0.8 %; Platelet Count 111 K/uL (130-400); RDW Coefficient of Variation 16.5 % (11.5-14.5); Red Blood Count 3.75 M/uL (3.93-5.22); White Blood Count 6.05 K/ul (4.8-10.8)
[2022-03-31 07:32] LABS: BUN Creatinine Ratio 16.4 (10-20); Calcium 9.5 mg/dl (8.5-10.1); Creatinine Clr Calc Pharmacy 33.3 ml/min; Est GFR (African American) 45.1 ml/min; Est GFR (Non-African American) 38.9 ml/min; Magnesium 1.8 mg/dl (1.7-2.4); Phosphorus 2.3 mg/dl (2.5-4.9); Potassium 3.7 mmol/L (3.5-5.1)
[2022-03-31 08:03] LABS: Basophils # (auto) 0.08 K/uL (0-0.2); Basophils % (auto) 1.3 %; Eosinophils # (auto) 0.14 K/uL (0-0.50); Eosinophils % (auto) 2.3 %; Immature Granulocytes # (auto) 0.07 K/uL (0.00-0.02); Immature Granulocytes % (auto) 1.2 %; Lymphocytes # (auto) 2.08 K/uL (1.2-3.4); Lymphocytes % (auto) 34.4 %; Monocytes # (auto) 0.99 K/uL (0.24-0.82); Monocytes % (auto) 16.4 %; Neutrophils # (auto) 2.69 K/uL (1.4-6.5); Neutrophils % (auto) 44.4 %; Polychromasia 1+
[2022-03-31] MEDS: INSULIN ASPART PER UNIT SC SCH ×4 (08:59→21:17)
[2022-03-31] MEDS: FLUTICASONE/VILANTEROL 200/25MCG 14 PUFFS/INHALER INH SCH (09:02)
[2022-03-31] MEDS: predniSONE 5 MG TAB PO SCH (09:02)
[2022-03-31] MEDS: POT PHOSPHATE MONOBASIC W/ SOD TAB PO SCH ×4 (09:02→21:16)
[2022-03-31] MEDS: PANTOprazole 40 MG TAB PO SCH (09:03)
[2022-03-31] MEDS: VANCOMYCIN HCL 125 MG/2.5ML SOLN PO SCH (09:03)
[2022-03-31] MEDS: ASPIRIN 81 MG ECTAB PO SCH (09:03)
[2022-03-31] MEDS: ROSUVASTATIN CALCIUM 20 MG TAB PO SCH (09:03)
[2022-03-31] MEDS: HEPARIN SOD 5,000 UNIT/0.5 ML VIAL SQ SCH ×2 (09:03→21:17)
[2022-03-31] MEDS: RASPBERRY SYRUP 5 ML UDP PO SCH (09:03)
[2022-03-31] MEDS: FOLIC ACID 1 MG TAB PO SCH (09:03)
[2022-03-31] MEDS: THIAMINE HCL 50 MG TABLET PO SCH (09:03)
[2022-03-31] MEDS: METOPROLOL SUCC 50MG EXT REL TAB PO SCH (09:04)
[2022-03-31] MEDS: DULoxetine HCL 60 MG CAP PO SCH (09:04)
[2022-03-31] MEDS: CLOPIDOGREL BISULFATE 75 MG TAB PO SCH (09:04)
[2022-03-31] MEDS: amLODIPine BESYLATE 5 MG TAB PO SCH (09:04)
--- NOTE | 2022-03-31 11:31 | Ultrasound Report ---
BILATERAL LOWER EXTREMITY VENOUS DOPPLER HISTORY: Lower extremity swelling. COMPARISON STUDY: None. FINDINGS: There is normal compressibility, flow, and augmentation within the bilateral lower extremit y deep venous systems. IMPRESSION: No DVT within the right or left lower extremity. ACT 112: Negative or not required by law. Electronically signed by: Peter Olivarez M.D. 03/31/2022 11:30 AM
[2022-03-31 11:52] LABS: Lyme Ab IgG w/WB Rflx Negative (Negative); Lyme Ab IgM w/WB Rflx Negative (Negative)
[2022-03-31] MEDS: CEROVITE ADV FORMULA TAB PO SCH (12:41)
[2022-03-31] MEDS ORDERED: OPTIRAY 320 100ml IV ONE (14:03)
--- NOTE | 2022-03-31 14:34 | CT Scan Report ---
CT SCAN OF THE ABDOMEN AND PELVIS WITH IV CONTRAST CLINICAL HISTORY: Fevers. COMPARISON STUDY: Abdominal CT dated 09/06/2021. TECHNIQUE: Following the IV administration of 93 cc of Optiray 320, CT scan of the abdomen and pelvi s is performed from the lung bases to the proximal femora. Images are reviewed in the axial, sagittal , and coronal planes. IV contrast was administered without complication. A dose lowering technique wa s utilized adhering to the principles of ALARA. There is motion artifact, as well as streak artifact from the arms which could not be elevated above the abdomen. CT DOSE: 432.10 mGy.cm FINDINGS: Lung bases: The heart is mildly enlarged and without pericardial effusion. The coronary arteries and mitral annulus are densely calcified. The lung bases are clear noting dependent atelectasis. There is a tiny hiatal hernia. Liver: The contrast-enhanced liver is normal in size, contour, and attenuation. There is no intrahepa tic biliary ductal dilatation. The hepatic veins and portal veins are patent. Gallbladder: Surgically absent noting clips in the gallbladder fossa. A 1 cm low-attenuation focus in the gallbladder fossa on image #100 is unchanged from prior examinations and likely represents posts urgical change. Spleen: The spleen is mildly enlarged measuring 14.4 cm in length. Pancreas: A subcentimeter cystic focus in the pancreatic body is unchanged and likely represents a ti ny sidebranch IPMN. The pancreas is otherwise grossly unremarkable. Adrenal glands: Unremarkable. Kidneys: The contrast enhanced kidneys demonstrate cortical atrophy and are without hydronephrosis. T he kidneys enhance symmetrically. Cortical scarring is noted in the right upper pole. Bilateral renal cysts measure up to 5.3 cm. Additional subcentimeter cortical hypodensities also likely represent cy sts but are too small for definitive characterization. Abdominal vasculature: The abdominal aorta is normal in course and caliber noting moderate to advance d atherosclerotic calcification. Bowel: There is moderate constipation. No bowel obstruction is seen. There is mild colonic diverticul osis without CT evidence of acute diverticulitis. The appendix is well-visualized and normal. Peritoneum: There is no intraperitoneal free air or abdominal ascites. Lymphadenopathy: A mildly enlarged noting the jong hepatis on image #102 measures 10 mm in short axi s. This is similar to prior studies. Pelvic viscera: The bladder is partially distended and grossly unremarkable. The uterus is surgically absent. No adnexal lesion is seen. Skeletal structures: The skeletal structures are heterogeneously osteopenic. There is moderate thorac olumbar spondylosis. Chronic posttraumatic deformity is noted in the sacrum. No lytic or blastic lesi ons are seen. IMPRESSION: 1. Streak and motion compromised examination. 2. No acute infectious or inflammatory findings are identified in the abdomen or pelvis. 3. Moderate constipation. 4. Mild splenomegaly. 5. Cardiomegaly. 6. Additional findings as above. ACT 112: Negative or not required by law. Electronically signed by: Brigido Gutierrez M.D. 03/31/2022 2:33 PM
[2022-03-31 15:22] LABS: Anti Nuclear Antibody Screen POSITIVE (NEGATIVE)
--- NOTE | 2022-03-31 17:30 | Hospitalist Progress Note ---
Date of Service March 31, 2022 Assessment & Plan (1) Stroke-like symptoms: Plan: Patient is 76 y/o F with PMH CAD, HTN, HLD, DM II, history of C. difficile on chronic vancomycin therapy, ILD, COPD, rheumatoid arthritis on chronic prednisone therapy, CKD III presented to ER 03/21 for difficulty speaking and generalized weakness noted at noon on the day of arrival. Last well known 7:00am 03/21/22. Upon ER presentation patient unable to move extremities and had aphasia both of which improved during ER stay. Had some confusion at presentation. She is being managed for the following: CT Head 03/21: There is no hemorrhage, mass effect, or evidence of acute territorial ischemia CTA Head and neck03/21: Unremarkable CT angiogram of the brain. Unremarkable CT angiogram of the neck noting atherosclerotic calcification of the carotid bulbs. MRI brain 03/21- Acute infarct in the left putamen with associated soft tissue swelling. No midline shift or hemorrhagic transformation is seen. MRI brain 03/25: ordered for new LUE weakness, no new infarct. Acute ischemic stroke of left basal ganglia- MRI brain shows acute infarct of left putamen - seen by neuro- recommendations noted - ASA/plavix for 21 days from 03/22/22 followed by plavix alone - c/w Increased crestor 20 mg daily - A1c 6.4, BP elevated- norvasc added 03/24 - 03/22 Echo with normal EF, no interatrial shunt, mild - PT recommended SNF - Neuro follow up in 8 weeks - LUE weakness noted 03/25 resolved, 03/25 MRI without new acute events. - Pt feels better and back to baseline with regard to strength. #. Elevated Temperature: Pt received booster dose (covid vaccine) on 03/26 evening, and Neupogen 03/27 around 4 PM. Temp elevated to 39.4 C and 38.2 C early am of 03/28 Exam before atb given early AM of 03/27, Temp went down to 36.5 (Pt received a dose of tylenol 2-3 hours prior to that) and Pt didn't appear septic/acutely ill at bedside exam. 03/28 infection w/u: WBC wnl (has leucopenia at baseline), procal elevated. UA and CXR wnl. No infection noted on skin exam. Blood Cx negative so far. Given Empiric antibiotic 03/28-03/29. Pt afebrile last 3 days, reports feeling tired, Pro-vane trend uptrending after antibiotic stopped. d/w pt's 03/30, she had this fever maybe weekly since last 3-5 wks and resolves on its own on the same day. 03/30 blood parasite smear negative, d/w ID 03/31 Over the phone, sending tick illness related tests, HIV, CT abd/pelvis w/ iv con, Hepatitis panel, doppler BLE 03/30 Doppler BLE neg for DVT 03/30 CT abd/pelvis w/ iv con: neg for infectious pathology. 03/30 lyme screen neg; anaplasma and babesia smear negative; f/u other serologic tests. ?? will need coagulability work up as OUtpatient. Pt will need f/u w/ ID as OP. Elevated Troponin- trop trend only mildly elevated and flat. No chest pain. Likely demand ischemia. Continue tele. Echo reviewed Electrolytes abnormality: Monitor and replete, maintain potassium greater than 4 and magnesium greater than 2. CKD III- Cr at baseline of 1.3-1.4 Rheumatoid arthritis- On chronic prednisone 5 mg daily along with hydroxychloroquine hs. Denies any recent flares COPD/ILD- No signs of exacerbation, Continue home inhalers Prediabetes- A1c 6.4. Might benefit from diet modifications and metformin as OP. defer to PCP. SSI prn here. HTN- BP fairly better. Continue metoprolol succinate. Her CKD and risk of hyperkalemia would preclude ACEI. Added norvasc 03/24 and uptitrated to 10 mg daily with goal BP of <130/80. History C. difficile- On chronic vancomycin Bicytopenia- Leucopenia with neutropenia/Thrombocytopenia- Unclear etiology - PBS 03/24 reviewed, AST minimally elevated but appears to be chronic, no fever early on, denies any tick bites. Denies any similar prior issues. No new meds except for plavix, heparin, norvasc but doubt these as causative agents as she already had bicytopenia on presentation. Doubt HIT. C/t hold plaquenil for now. Iron profile with vitamin levels WNL. LUQ ultrasound with normal spleen. Patient received a dose of filgrastim 03/27 p.m. around 4 PM. Covid booster vaccine on 03/26 pm. WBC WNL. s/p Neupogen 03/27, 03/29 and 03/30 Patient will need outpatient follow-up with hematology. Likely will need BM bi opsy. Hyponatremia- mild, stable. DVT Prophylaxis- Heparin SQ Dispo- PT recommended SNF. CM following. Not very sure, will re-eval in AM. 03/30 and 03/31: Updated Pt's at bedside, answered all his questions. Admission and Anticipated Discharge Date Admission Date: March 21, 2022 Subjective Patient seen and examined at bedside as a follow-up of acute infarcts in the left putamen, elevated troponin and electrolytes abnormality. Pt sitting up in chair. NAD. On room air. Afebrile last 3 days, patient reports feeling tired, similar to before. No new focal weakness. Denies any new discomfort overnight. Remains pleasantly confused in AM exam. Moving bladder bowel without issues. No chills, rash, shortness of breath, pain or other ROS. No infective skin lesions noted. Physical Exam Physical Exam: GENERAL: Pleasantly confused. NAD, on RA. Appears weak, old and frail. HEENT: No pallor, no icterus. Pupils equal, round and reactive to light. Oral mucosa moist. NECK: No JVD, no neck masses. HEART: S1 and S2 heard. Regular rate and rhythm. No murmur, no gallop. RESPIRATORY SYSTEM: Normal AP diameter. No accessory muscle use. No wheezing, no crackles. ABDOMEN: Soft, bowel sounds present, nontender, no distention. CENTRAL NERVOUS SYSTEM: No facial droop. Speech is clear. Obeys simple commands. Moves extremities. All extremities strength normal. EXTREMITIES: No edema, no erythema seen. Results & Data Results & Data ([facility]) Vital Signs (Past 12 Hours) Vital Signs Temp Pulse Pulse Resp BP Pulse Ox O2 Del Method 03/31/22 16:49 83 03/31/22 15:26 36.8 C 81 14 118/65 97 Room Air 03/31/22 11:42 36.8 C 80 16 128/61 96 Room Air 03/31/22 07:29 37.7 C H 70 16 146/73 H 94 Room Air 03/31/22 07:15 75
[2022-03-31] MEDS: LATANOPROST 0.005% OP SOLN 2.5 ML BTL OP SCH (21:16)
[2022-03-31] MEDS: MONTELUKAST SODIUM 10 MG TABLET PO SCH (21:16)
[2022-04-01 07:00] LABS: Hematocrit (blood only) 28.9 % (34.1-44.9); Hemoglobin 9.8 g/dl (12.0-16.0); Mean Corpuscular Hemoglobin 29.1 pg (25.0-34.0); Mean Corpuscular Hgb Conc 33.9 g/dL (32.0-36.0); Mean Corpuscular Volume 85.8 fL (80.0-100.0); Mean Platelet Volume 9.9 fL (9.4-12.3); Nucleated RBC # (auto) 0.07 K/uL (0-0); Nucleated RBC % (auto) 0.9 %; Platelet Count 103 K/uL (130-400); RDW Standard Deviation 51.7 fL (36.4-46.3); Red Blood Count 3.37 M/uL (3.93-5.22); White Blood Count 7.54 K/ul (4.8-10.8)
[2022-04-01 07:23] LABS: BUN Creatinine Ratio 16.8 (10-20); Calcium 8.8 mg/dl (8.5-10.1); Est GFR (African American) 43.9 ml/min; Est GFR (Non-African American) 37.9 ml/min; Magnesium 1.7 mg/dl (1.7-2.4); Phosphorus 4.7 mg/dl (2.5-4.9); Potassium 3.4 mmol/L (3.5-5.1)
[2022-04-01 08:03] LABS: Basophils # (auto) 0.09 K/uL (0-0.2); Basophils % (auto) 1.2 %; Eosinophils # (auto) 0.14 K/uL (0-0.50); Eosinophils % (auto) 1.9 %; Immature Granulocytes # (auto) 0.07 K/uL (0.00-0.02); Immature Granulocytes % (auto) 0.9 %; Lymphocytes # (auto) 2.74 K/uL (1.2-3.4); Lymphocytes % (auto) 36.3 %; Monocytes # (auto) 1.14 K/uL (0.24-0.82); Monocytes % (auto) 15.1 %; Neutrophils # (auto) 3.36 K/uL (1.4-6.5); Neutrophils % (auto) 44.6 %
[2022-04-01] MEDS ORDERED: POTASSIUM CHLORIDE CRTAB 20 MEQ TABCR PO STA (08:25)
[2022-04-01] MEDS: INSULIN ASPART PER UNIT SC SCH ×2 (08:32→12:58)
[2022-04-01] MEDS: FLUTICASONE/VILANTEROL 200/25MCG 14 PUFFS/INHALER INH SCH (08:36)
[2022-04-01] MEDS: ASPIRIN 81 MG ECTAB PO SCH (08:37)
[2022-04-01] MEDS: THIAMINE HCL 50 MG TABLET PO SCH (08:37)
[2022-04-01] MEDS: CLOPIDOGREL BISULFATE 75 MG TAB PO SCH (08:37)
[2022-04-01] MEDS: amLODIPine BESYLATE 5 MG TAB PO SCH (08:37)
[2022-04-01] MEDS: DULoxetine HCL 60 MG CAP PO SCH (08:37)
[2022-04-01] MEDS: PANTOprazole 40 MG TAB PO SCH (08:37)
[2022-04-01] MEDS: METOPROLOL SUCC 50MG EXT REL TAB PO SCH (08:37)
[2022-04-01] MEDS: FOLIC ACID 1 MG TAB PO SCH (08:37)
[2022-04-01] MEDS: HEPARIN SOD 5,000 UNIT/0.5 ML VIAL SQ SCH (08:37)
[2022-04-01] MEDS: predniSONE 5 MG TAB PO SCH (08:37)
[2022-04-01] MEDS: ROSUVASTATIN CALCIUM 20 MG TAB PO SCH (08:37)
[2022-04-01] MEDS: VANCOMYCIN HCL 125 MG/2.5ML SOLN PO SCH (08:42)
[2022-04-01] MEDS: MAGNESIUM SULFATE / D5W 1 GM/100 ML BAG IV SCH ×2 (08:54→10:46)
[2022-04-01] MEDS ORDERED: MAGNESIUM OXIDE 400 MG TAB PO SCH (09:00)
--- NOTE | 2022-04-01 12:32 | Discharge Summary ---
Date of Service April 01, 2022 Admission HPI Per Admitting Provider Patient is 76 y/o F with PMH CAD, HTN, HLD, DM II, history of C. difficile on chronic vancomycin therapy, ILD, COPD, rheumatoid arthritis on chronic prednisone therapy, CKD III presented to ER for difficulty speaking and weakness. History obtained from patient and patient's and inpatient and outpatient chart review. Patient's reports 7 AM today patient woke up and she was answering his questions appropriately. States patient does not wake up until noon on a daily basis. Reports today it was noon and patient was not up so he woke patient up and she seemed confused and was unable to talk. He stat es she acted like she tried to talk but nothing came out. He attempted to get her up and she was unable to sit up. He tried to dress her but she was unable to help get herself dressed. called EMS. Upon ER presentation reported pt had aphasia and was not moving her extremities. During ER course patient able to talk and is moving extremities, however with some confusion. Patient denies any new visual disturbance. Denies fever/chills, diaphoresis, N/V/D/C, TORRES, dizziness, syncope, neck pain, CP, SOB, orthopnea, palpitations, cough, sore throat, choking, otalgia, rhinorrhea, abdominal pain, paresthesias, extremity edema, rashes, urinary symptoms. Admission Exam Per Admitting Provider General: no distress, WDWN Head: normocephalic, atraumatic Eyes: PERRL, EOM's intact, conjunctiva non-injected, anicteric ENT: normal inspection external ears, nose, mucous membranes moist Neck: supple, trachea midline Lungs: clear, no respiratory distress, no wheezing/rhonchi/rales CV: RRR, no murmur, no pretibial edema Abd: normal BS, soft, non-tender Ext: no cyanosis, no calf tenderness Neuro: Alert, oriented to person. Knows in hospital but unsure of name or city. Knows is 2021 but unsure of month, day or season. Says president is [place]. facial sensation is intact and symmetric, face is strong and symmetric, hearing grossly intact, soft palate elevates symmetrically, no dysarthria, shoulder shrug intact, tongue is midline, normal movement, no fasciculations. Diffuse weakness bilateral upper and lower extremities 4/5. Skin: warm, dry Principal Diagnosis Acute infarct of left putamen Elevated temperature, no source of infection identified Bicytopenia Mild hyponatremia chronic, stable Discharge Exam GENERAL: AOx3. NAD, on RA. Appears weak, old and frail. HEENT: No pallor, no icterus. Pupils equal, round and reactive to light. Oral mucosa moist. NECK: No JVD, no neck masses. HEART: S1 and S2 heard. Regular rate and rhythm. No murmur, no gallop. RESPIRATORY SYSTEM: Normal AP diameter. No accessory muscle use. No wheezing, no crackles. ABDOMEN: Soft, bowel sounds present, nontender, no distention. CENTRAL NERVOUS SYSTEM: No facial droop. Speech is clear. Obeys simple commands. Moves extremities. All extremities strength normal. EXTREMITIES: No edema, no erythema seen. Discharge Data Allergies Allergy/AdvReac Type Severity Reaction Status Date / Time methotrexate Allergy Intermediate RASH/PNEUMO Verified 03/21/22 16:46 NITIS Penicillins Allergy Intermediate hives Verified 03/21/22 16:46 ranitidine Allergy Intermediate rash Verified 03/21/22 16:46 Consultations 03/21/22 16:01 ED Decision to Admit Stat 03/21/22 18:06 Consult Neurology Routine 03/24/22 09:06 Consult Hematology Routine Ordered Studies 03/21/22 14:12 CT angio head w con Stat CT angio neck with con Stat CT head/brain wo con Stat 03/21/22 18:06 MR brain wo con Routine 03/25/22 12:03 MR brain wo/w con Routine 03/27/22 08:21 US abdomen limited Routine 03/31/22 10:07 US venous doppler LE BI Routine 03/31/22 12:55 CT Abd and Pelvis [CT abd pelvis IV con only] Routine Hospital Course (1) Stroke-like symptoms: Patient is 76 y/o F with PMH CAD, HTN, HLD, DM II, history of C. difficile on chronic vancomycin therapy, ILD, COPD, rheumatoid arthritis on chronic prednisone therapy, CKD III presented to ER 03/21 for difficulty speaking and generalized weakness noted at noon on the day of arrival. Last well known 7:00am 03/21/22. Upon ER presentation patient unable to move extremities and had aphasia both of which improved during ER stay. Had some confusion at presentation. She WAS managed for the following: CT Head 03/21: There is no hemorrhage, mass effect, or evidence of acute territorial ischemia CTA Head and neck03/21: Unremarkable CT angiogram of the brain. Unremarkable CT angiogram of the neck noting atherosclerotic calcification of the carotid bulbs. MRI brain 03/21- Acute infarct in the left putamen with associated soft tissue swelling. No midline shift or hemorrhagic transformation is seen. MRI brain 03/25: ordered for new LUE weakness, no new infarct. Acute ischemic stroke of left basal ganglia- MRI brain shows acute infarct of left putamen - seen by neuro- recommendations noted - ASA/plavix for 21 days from 03/22/22 followed by plavix alone - c/w Increased crestor 20 mg daily - A1c 6.4, BP elevated- norvasc added 03/24 - 03/22 Echo with normal EF, no interatrial shunt, mild - PT recommended SNF - Neuro follow up in 8 weeks - LUE weakness noted 03/25 resolved, 03/25 MRI without new acute events. - Pt feels better and back to baseline with regard to strength. #. Elevated Temperature: Pt received booster dose (covid vaccine) on 03/26 evening, and Neupogen 03/27 around 4 PM. Temp elevated to 39.4 C and 38.2 C early am of 03/28 Exam before atb given early AM of 03/27, Temp went down to 36.5 (Pt received a dose of tylenol 2-3 hours prior to that) and Pt didn't appear septic/acutely ill at bedside exam. 03/28 infection w/u: WBC wnl (has leucopenia at baseline), procal elevated. UA and CXR wnl. No infection noted on skin exam. Blood Cx negative so far. Given Empiric antibiotic 03/28-03/29. Pt afebrile last 4 days, reports feeling better, Pro-vane trend flat initially slightly uptrended after antibiotic stopped, then flat trended. d/w pt's 03/30, she had this fever maybe weekly since last 3-5 wks and resolves on its own on the same day. 03/30 blood parasite smear negative, d/w ID 03/31 Over the phone, sending tick illness related tests, HIV, CT abd/pelvis w/ iv con, Hepatitis panel, doppler BLE 03/30 Doppler BLE neg for DVT 03/30 CT abd/pelvis w/ iv con: neg for infectious pathology. 03/30 lyme screen neg; anaplasma and babesia smear negative; f/u other serologic tests. ?? will need coagulability work up as OUtpatient. Pt will need f/u w/ ID as OP. Elevated Troponin- trop trend only mildly elevated and flat. No chest pain. Likely demand ischemia. Continue tele. Echo reviewed Electrolytes abnormality: Monitor and replete, maintain potassium greater than 4 and magnesium greater than 2. CKD III- Cr at baseline of 1.3-1.4 Rheumatoid arthritis- On chronic prednisone 5 mg daily along with hydroxychloroquine hs. Denies any recent flares COPD/ILD- No signs of exacerbation, Continue home inhalers Prediabetes- A1c 6.4. Might benefit from diet modifications and metformin as OP. defer to PCP. SSI prn here. HTN- BP fairly better. Continue metoprolol succinate. Her CKD and risk of hyperkalemia would preclude ACEI. Added norvasc 03/24 and uptitrated to 10 mg daily with goal BP of <130/80. History C. difficile- On chronic vancomycin Bicytopenia- Leucopenia with neutropenia/Thrombocytopenia- Unclear etiology - PBS 03/24 reviewed, AST minimally elevated but appears to be chronic, no fever early on, denies any tick bites. Denies any similar prior issues. No new meds except for plavix, heparin, norvasc but doubt these as causative agents as she already had bicytopenia on presentation. Doubt HIT. C/t hold plaquenil for now. Iron profile with vitamin levels WNL. LUQ ultrasound with normal spleen. Patient received a dose of filgrastim 03/27 p.m. around 4 PM. Covid booster vaccine on 03/26 pm. WBC WNL. s/p Neupogen 03/27, 03/29 and 03/30 Patient will need outpatient follow-up with hematology. Likely will need BM biopsy. Hyponatremia- mild, stable. Patient is being discharged to SNF with following instruction at the point of discharge: Follow-up with your primary care physician within a week time. Follow-up with your neurology doctor in 6 to 7 weeks time. You were admitted for ischemic stroke. Continue with your aspirin and Plavix from 03/22/2022 to 04/11/2022, then take Plavix daily for life. Your blood pressure medication has been adjusted, amlodipine has been added. Maintain your blood pressure readings twice a day so that you can take this record to your primary care physician. Your Crestor dose has been increased to 20 mg daily from 10 mg daily. Follow-up with [facility] therapy at [facility]. For your abrupt elevation of temperature x weekly, you underwent infection work- up including blood culture and CT abdomen pelvis with IV contrast, no source of infection identified. I had a discussion with ID doctor over the phone, we have sent some serology test of which the results are either negative or pending. As discussed at the bedside, you will need to follow-up with infectious disease doctor in 1 to 2 weeks time upon discharge and also follow-up with the serology tests with your primary care physician in a week time when they will all have been resulted. Please maintain the log for spiking of a temperature with date and time so that you can take it to your primary care physician or infectious disease doctor. For your low blood cell count [bicytopenia], you underwent a work-up. Your iron profile/vitamin levels/abdominal ultrasound were normal. Hematology evaluated you while inpatient, you will need to establish and follow-up with hematology as an outpatient for consideration for bone marrow biopsy. Your hydroxychloroquine will be held upon discharge, further discussion with your primary care physician as an outpatient for resuming the medication and coordination with your rigger third. Get your blood work CBC, magnesium level, CMP in a week time and have the results forwarded to your primary care physician. Take your medications as prescribed. Total Time Total Time Spent Total Time Spent (In Minutes): 45 Discharge Plan Discharge Items Patient Disposition: Transfer [facility] Reason For Visit: STROKE LIKE SYMPTOMS Discharge Diagnosis: Acute infarct of left putamen Elevated temperature, no source of infection identified Bicytopenia Mild hyponatremia chronic, stable Activity: Resume your previous activity Non-emergency contact: Primary Care Provider Call non-emergency contact if: you have any medication questions, your pain is not controlled and your temperature is above 101 Follow-up/Referrals: Leni Moyer DO [Primary Care Provider] - Chance Churchill DO [Physician] - (Date & Time 05/13/2022 11:00 AM Provider Chance Churchill DO Department Neurology [facility] ) Diet: Carb Consistent or DM2 Diet Texture: Easy to Chew Addtl Attending Provider Instructions: Follow-up with your primary care physician within a week time. Follow-up with your neurology doctor in 6 to 7 weeks time. You were admitted for ischemic stroke. Continue with your aspirin and Plavix from 03/22/2022 to 04/11/2022, then take Plavix daily for life. Your blood pr essure medication has been adjusted, amlodipine has been added. Maintain your blood pressure readings twice a day so that you can take this record to your primary care physician. Your Crestor dose has been increased to 20 mg daily from 10 mg daily. Follow-up with physical therapy at [facility]. For your abrupt elevation of temperature x weekly, you underwent infection work- up including blood culture and CT abdomen pelvis with IV contrast, no source of infection identified. I had a discussion with ID doctor over the phone, we have sent some serology test of which the results are either negative or pending. As discussed at the bedside, you will need to follow-up with infectious disease doctor in 1 to 2 weeks time upon discharge and also follow-up with the serology tests with your primary care physician in a week time when they will all have been resulted. Please maintain the log for spiking of a temperature with date and time so that you can take it to your primary care physician or infectious disease doctor. For your low blood cell count [bicytopenia], you underwent a work-up. Your iron profile/vitamin levels/abdominal ultrasound were normal. Hematology evaluated you while inpatient, you will need to establish and follow-up with hematology as an outpatient for consideration for bone marrow biopsy. Your hy droxychloroquine will be held upon discharge, further discussion with your primary care physician as an outpatient for resuming the medication and coordination with your rigger third. Get your blood work CBC, magnesium level, CMP in a week time and have the results forwarded to your primary care physician. Take your medications as prescribed. Pending Studies at Discharge: Yes (Blood culture, serologic tests) Stand-Alone Forms: My [facility] Skilled Items Patient informed of condition?: Yes DNR: No Discharge Level of Care: Skilled Communicable Disease: No Discharge Prognosis: Stable Lines: None Urinary Catheter: No Medications and DC Order Prescriptions: New clopidogrel 75 mg Tablet 75 mg PO QAM Qty: 30 0RF amlodipine [Norvasc] 5 mg Tablet 10 mg PO QAM Qty: 60 0RF magnesium oxide 400 mg (241.3 mg magnesium) Tablet 400 mg PO BID Qty: 60 0RF Continued latanoprost 0.005 % drops 1 drp ophthalmic (eye) HS cyanocobalamin (vitamin B-12) [Vitamin B-12] 1,000 mcg Tablet 2,000 mcg PO 3XWK Rx Instructions: mon, wed, fri albuterol sulfate [ProAir HFA] 90 mcg/actuation Hfa Aerosol Inhaler 2 puff INHALATION Q4 PRN (Reason: Shortness Of Breath) Ocuvite with Lutein 1,000 unit-200 mg-60 unit-2 mg Tablet 1 tab PO QDL prednisone 5 mg tablet 5 mg PO QAM folic acid 1 mg tablet 1 mg PO QAM duloxetine 30 mg capsule,delayed release(DR/EC) 60 mg PO DAILY Centrum Silver Women 8 mg iron-400 mcg-300 mcg Tablet 1 tab PO QDL montelukast 10 mg Tablet 10 mg PO HS metoprolol succinate 50 mg tablet extended release 24 hr 50 mg PO QAM pantoprazole 40 mg tablet,delayed release (DR/EC) 40 mg PO QAM vancomycin 125 mg capsule 125 mg PO DAILY thiamine HCl (vitamin B1) 100 mg tablet 50 mg PO DAILY acetaminophen 325 mg Tablet 325 mg PO BID PRN (Reason: Pain) fluticasone furoate-vilanterol [Breo Ellipta] 200-25 mcg/dose blister with device 1 inh INHALATION DAILY aspirin [Ruddy Low Dose Aspirin] 81 mg Tablet,Delayed Release (Dr/Ec) 81 mg PO HS 10 Days Qty: 10 0RF solifenacin [Vesicare] 10 mg tablet 10 mg PO QDL Changed rosuvastatin 10 mg Tablet 20 mg PO QAM Qty: 60 0RF Discontinued hydroxychloroquine 200 mg tablet 200 mg PO HS Discharge Orders: Discharge Order (Routine); Ordered 04/01/22 Ordered By: Stefania Owen Admission Data Admit Date/Time: 03/21/22 16:22 Attending Provider: Stefania Owen Admit Provider: Stefania Owen Primary Care Provider: Leni Moyer Other Providers: Stefania Owen ; Chance Churchill ; Gemma Scales ; [facility]
[2022-04-01] MEDS: CEROVITE ADV FORMULA TAB PO SCH (12:58)
[2022-04-01 15:39] LABS: ANA Pattern Nuclear, Homogeneous
[2022-04-03 17:27] LABS: Babesia microti DNA Not Detected (Not Detected)
[2022-04-04 07:08] LABS: Ehrlichia chaff DNA Bld Negative (Negative)
== END 2022-04-01 13:29 | DRG 65 ==
LOC: ED 14:15 → SUATTDRO 16:22 → 2N 16:22

== ENCOUNTER 2022-08-06 13:31 | Inpatient (IN) ==
[2022-08-06] MEDS ORDERED: SODIUM CHLORIDE 0.9% 1000ML 1,000 ML IV SCH (14:00)
[2022-08-06 14:01] LABS: Basophils # (auto) 0.04 K/uL (0-0.2); Basophils % (auto) 0.4 %; Eosinophils # (auto) 0.02 K/uL (0-0.50); Eosinophils % (auto) 0.2 %; Hematocrit (blood only) 36.2 % (34.1-44.9); Hemoglobin 12.5 g/dl (12.0-16.0); Immature Granulocytes # (auto) 0.05 K/uL (0.00-0.02); Immature Granulocytes % (auto) 0.5 %; Lymphocytes # (auto) 3.02 K/uL (1.2-3.4); Mean Corpuscular Hemoglobin 27.5 pg (25.0-34.0); Mean Corpuscular Hgb Conc 34.5 g/dL (32.0-36.0); Mean Corpuscular Volume 79.6 fL (80.0-100.0); Mean Platelet Volume 8.4 fL (9.4-12.3); Monocytes # (auto) 1.22 K/uL (0.24-0.82); Monocytes % (auto) 12.1 %; Neutrophils % (auto) 56.8 %; Platelet Count 261 K/uL (130-400); RDW Coefficient of Variation 16.9 % (11.5-14.5); RDW Standard Deviation 47.9 fL (36.4-46.3); Red Blood Count 4.55 M/uL (3.93-5.22); White Blood Count 10.05 K/ul (4.8-10.8)
[2022-08-06 14:22] LABS: Alanine Aminotransferase 20 U/L (7-52); Albumin Globulin Ratio 0.9 (0.9-2); Albumin Level 3.5 gm/dl (3.4-5.0); Alkaline Phosphatase 87 U/L (34-104); Anion Gap 11 (3-11); Aspartate Aminotransferase 36 U/L (13-39); BUN Creatinine Ratio 14.8 (10-20); Bilirubin,Total 0.9 mg/dl (0.2-1.0); Blood Urea Nitrogen 17 mg/dl (6-23); Calcium 9.8 mg/dl (8.5-10.1); Carbon Dioxide 25 mmol/L (21-32); Chloride 92 mmol/L (98-107); Est GFR (African American) 54.3 ml/min; Est GFR (Non-African American) 46.8 ml/min; Glucose 193 mg/dl (70-99(Fasting)); Magnesium 1.8 mg/dl (1.7-2.4); Potassium 4.1 mmol/L (3.5-5.1); Sodium 128 mmol/L (136-145); Total Protein 7.5 gm/dl (6.0-8.3)
[2022-08-06 14:26] LABS: Troponin I High Sensitivity 21.4 pg/ml (0-14)
--- NOTE | 2022-08-06 14:29 | XRay Report ---
XR chest 1V portable CLINICAL HISTORY: weakness TECHNIQUE: Single frontal radiograph of the chest was obtained. Comparison: Comparison is made to chest radiograph 03/28/2022 FINDINGS: Right shoulder reverse arthroplasty is again seen. The cardiomediastinal silhouette is normal. Lungs are underinflated but clear. No evidence of pleural effusion or pneumothorax. IMPRESSION: No acute chest disease. ACT 112: Negative or not required by law. Electronically signed by: Jose Morton M.D. 08/06/2022 2:28 PM
--- NOTE | 2022-08-06 14:42 | XRay Report ---
RIGHT WRIST 5 VIEWS CLINICAL HISTORY: Fall with right wrist pain. FINDINGS: 5 views of the right wrist are obtained. No prior studies are available for comparison at t he time of dictation. The skeletal structures are osteopenic. No acute fracture is identified. Soft t issue swelling is present throughout the wrist. Advanced degenerative change is seen throughout the c arpal bones with collapse of the proximal carpal row and proximal migration of the capitate. Bony scl erosis and cystic change is seen throughout. There is moderate to severe osteoarthritic change at the first carpometacarpal articulation with bony sclerosis, overgrowth, and subluxation. Atherosclerotic calcification is seen in the regional arteries. An IV catheter is present in the forearm. IMPRESSION: 1. Soft tissue swelling with no radiographic evidence of acute fracture. If there is clinical concern for occult fracture consider short-term radiographic follow-up. 2. Severe arthritic change as above with instability and collapse of the proximal carpal row. Electronically signed by: Brigido Gutierrez M.D. 08/06/2022 2:40 PM
--- NOTE | 2022-08-06 14:45 | CT Scan Report ---
CT SCAN OF THE BRAIN WITHOUT IV CONTRAST CLINICAL HISTORY: Fall. Change in mental status. COMPARISON STUDY: CT of the brain dated 03/21/2022. TECHNIQUE: Unenhanced axial CT scan of the brain is performed from the vertex to the skull base. A do se lowering technique was utilized adhering to the principles of ALARA. The vertex was scanned twice due to motion artifact. CT DOSE: 844.62 mGy.cm FINDINGS: Brain parenchyma: There is age-related involutional change noting moderate subcortical and periventri cular microangiopathic disease. There is no hemorrhage, mass effect, or evidence of acute territorial ischemia by CT criteria. Lai-white matter differentiation is preserved. No extra-axial fluid collec tion is seen. Ventricles, sulci, cisterns: Prominent secondary to involutional change. Intracranial vasculature: There is atherosclerotic calcification of the cavernous carotid and vertebr al arteries. Calvarium: The skeletal structures are osteopenic. No depressed calvarial fracture is identified. Sinuses and mastoids: The visualized paranasal sinuses are clear. The mastoid air cells are well pneu matized. Orbits: The bony orbits are grossly intact. There are bilateral ocular lens implants. IMPRESSION: There is no hemorrhage, mass effect, or evidence of acute territorial ischemia by CT zachary workman. ACT 112: Negative or not required by law. Electronically signed by: Brigido Gutierrez M.D. 08/06/2022 2:44 PM
[2022-08-06] MEDS ORDERED: NovoLIN-R INSULIN PER UNIT CHARGE SC STA (14:57)
--- NOTE | 2022-08-06 15:05 | XRay Report ---
XR wrist LT min 3V routine CLINICAL HISTORY: trauma. Left wrist pain. COMPARISON STUDY: None. 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 Possible n ondisplaced fracture within the triquetral bone. The distal radius and ulna are intact. There is diff use soft tissue swelling within the left breast and vascular calcifications. No dislocation. IMPRESSION: Possible nondisplaced fracture within the triquetral bone. ACT 112: Negative or not required by law. Electronically signed by: Peter Olivarez M.D. 08/06/2022 3:04 PM
[2022-08-06 16:09] LABS: Appearance Urine Cloudy (Clear); Bacteria Urine Automated 4+ (Negative); Bilirubin Urine Negative (Negative); Blood Urine Trace (Negative); Color Urine Dark Yellow; Epithelial Cell Urine Auto 0-5 /lpf (0-5); Glucose Urine UA Negative (Negative); Ketones Urine Trace (Negative); Leukocyte Esterase Urine 2+ (Negative); Nitrite Urine Positive (Negative); Protein Urine 2+ (Negative); RBC Urine Automated 0-4 /hpf (0-4); Specific Gravity Urine 1.019 (1.000-1.030); Urobilinogen Urine Negative (Negative); WBC Urine Automated >30 /hpf (0-5)
[2022-08-06] MEDS ORDERED: cefTRIAXone SODIUM 1,000 MG/50 ML BAG IV STA (16:41)
--- NOTE | 2022-08-06 17:34 | History & Physical Report ---
Date of Service August 06, 2022 Assessment & Plan (1) Acute metabolic encephalopathy: (2) UTI (urinary tract infection): (3) Fall: (4) Generalized weakness: (5) Wrist injury: (6) DM type 2 (diabetes mellitus, type 2): (7) History of stroke: (8) CKD (chronic kidney disease), stage III: (9) C. difficile colitis: (10) HTN (hypertension): (11) Asthma: (12) Depression: Plan This is a 76 y/o F with PMH CAD, HTN, HLD, DM II, history of C. difficile on chronic vancomycin therapy, ILD, COPD, rheumatoid arthritis on chronic prednisone therapy, CKD III presenting to the ED with worsening confusion and frequent falls and found to have UTI and hyponatremia. Acute metabolic encephalopathy Urinary tract infection Worsening confusion over the past week with generalized weakness in setting of likely infection CT head obtained due to confusion but no acute intracranial changes Vital signs stable, no leukocytosis, abnormal urinalysis Started on empiric Rocephin. Plan to continue Follow urine culture Hyponatremia Initial sodium of 128 but when corrected for hyperglycemia is 129, which is close to patient baseline Is on duloxetine so concern for SIADH. Will obtain serum awesome and urine studies. Fluid restrict at 1.8 L for now Repeat BMP in a.m. Generalized weakness, fall Wrist injury Fell earlier this week into a dresser, landing on left wrist and shoulder Left wrist x-ray with possible nondisplaced fracture within the triquetral bone Wrist placed in splint. Routine Ortho consult placed Fall precautions, PT OT evaluations Initial troponin elevation, abnormal ECG High sensitivity troponin: 21, which appears to be chronic. ECG with possible a fib but artifact present. Also with T wave inversions noted, chronic RBBB seen on previous ECG No chest pain. Will repeat ECG this evening for better visualization Continue aspirin, statin, metoprolol succinate Diabetes Likely steroid induced. Most recent a1c 6.4 in March. Will repeat in AM Carb consistent diet, SSI added. BSG AC HS History of CVA History of ischemic stroke. Continue aspirin, Plavix and statin CKD 3 Creatinine at baseline low-mid 1s. Continue to monitor with daily BMP History C. difficile Continue chronic oral vancomycin History of rheumatoid arthritis on chronic steroids Continue prednisone 5 mg daily Hypertension Continue Toprol, amlodipine Depression Continue duloxetine COPD/ILD No signs exacerbation Continue home inhalers DVT Ppx: SQ heparin Code status: FULL PCP: João Dispo: Admitted to [facility] Patient seen in collaboration with Dr. Sanchez. Please see addendum. History of Present Illness Chief Complaint: Confusion, weakness, frequent falls Primary Care Provider: Leni Moyer DO This is a 76 y/o F with PMH CAD, HTN, HLD, DM II, history of C. difficile on chronic vancomycin therapy, ILD, COPD, rheumatoid arthritis on chronic prednisone therapy, CKD III presenting to the ED with worsening confusion and frequent falls. History primarily obtained by at bedside due to patient's confusion. He endorses worsening confusion over past week with intermittent fevers (tmax 100). Also notes increased weakness with fall 2 days ago when she fell into dresser, landing on L shoulder and wrist. Decreased appetite and fluid intake over the past few days. Has a dull headache. Denies any chest, abdominal pain or SOB. Denies urinary symptoms. Had a cough recently and was taking nyquil to sleep but cough has since improved. has been helping her ambulate around but she is unsteady. Chronic loose stool with history of c diff but is formed. Unable to answer remainder of ROS due to cognitive status. Allergies Allergy/AdvReac Type Severity Reaction Status Date / Time Influenza Virus Vaccines Allergy Severe FLOWN TO Verified 08/06/22 17:37 [facility]. methotrexate Allergy Intermediate RASH/PNEUMO Verified 08/06/22 17:37 NITIS Penicillins Allergy Intermediate hives Verified 08/06/22 17:37 ranitidine Allergy Intermediate rash Verified 08/06/22 17:37 INSECTIC[facility]ES AdvReac Severe CAUSE Uncoded 08/06/22 17:37 BREATHING ISSUES Home Medications Medication Instructions Recorded Confirmed Type duloxetine 30 mg capsule,delayed 60 mg PO DAILY 07/20/18 08/06/22 History release folic acid 1 mg tablet 1 mg PO QAM 07/20/18 08/06/22 History prednisone 5 mg tablet 5 mg PO QAM 07/20/18 08/06/22 History albuterol sulfate 90 mcg/actuation 2 puff inhalation Q4 PRN Shortness 03/07/19 08/06/22 History aerosol inhaler (ProAir HFA) Of Breath cyanocobalamin (vitamin B-12) 2,000 mcg PO 3XWK 03/07/19 08/06/22 History 1,000 mcg tablet (Vitamin B-12) vit A 300 mcg-C 200 mg-E 27 1 tab PO QDL 03/07/19 08/06/22 History mg-lutein 2 mg and minerals tablet (Ocuvite with Lutein) multivit with 1 tab PO QDL 11/12/19 08/06/22 History expaqfma-hktt-XC-lutein 8 mg iron-400 mcg-300 mcg tablet (Centrum Silver Women) montelukast 10 mg tablet 10 mg PO HS 11/15/20 08/06/22 History latanoprost 0.005 % eye drops 1 drp OPB HS 01/03/21 08/06/22 History solifenacin 10 mg tablet (Vesicare) 10 mg PO QDL 08/22/21 08/06/22 History acetaminophen 325 mg tablet 325 mg PO BID PRN Pain 03/21/22 08/06/22 History fluticasone furoate 200 1 inh inhalation DAILY 03/21/22 08/06/22 History mcg-vilanterol 25 mcg/dose inhalation powder (Breo Ellipta) thiamine HCl (vitamin B1) 100 mg 50 mg PO DAILY 03/21/22 08/06/22 History tablet vancomycin 125 mg capsule 125 mg PO DAILY 03/21/22 08/06/22 History clopidogrel 75 mg tablet 75 mg PO QAM #30 tabs 04/01/22 08/06/22 Rx magnesium oxide 400 mg (241.3 mg 400 mg PO BID #60 tabs 04/01/22 08/06/22 Rx magnesium) tablet rosuvastatin 10 mg tablet 20 mg PO QAM #60 tabs 04/01/22 08/06/22 Rx Lactobacillus rhamnosus GG 5 5 cell PO BID 08/06/22 08/06/22 History billion cell oral powder packet (Culturee Kids Probiotics) albuterol sulfate 2.5 mg/3 mL 2.5 mg inhalation DIRECTED PRN 08/06/22 08/06/22 History (0.083 %) solution for nebulization Shortness Of Breath Or Wheezing amlodipine 10 mg tablet 10 mg PO DAILY 08/06/22 08/06/22 History betamethasone dipropionate 0.05 % 1 applic topical BID PRN AFFECTED 08/06/22 08/06/22 History topical cream AREA cholecalciferol (vitamin D3) 50 50 mcg PO DAILY 08/06/22 08/06/22 History mcg (2,000 unit) capsule (Vitamin D3) ferrous sulfate 325 mg (65 mg 325 mg PO DAILY 08/06/22 08/06/22 History iron) tablet levalbuterol HCl 1.25 mg/3 mL 1.25 mg inhalation Q4H PRN 08/06/22 08/06/22 History solution for nebulization (Xopenex) SOB/COUGH/WHEEZING menthol 0.44 %-zinc oxide 20.6 % 1 applic topical BID PRN AFFECTED 08/06/22 08/06/22 History topical ointment (Calmoseptine) AREA metoprolol succinate 25 mg 75 mg PO DAILY 08/06/22 08/06/22 History tablet,extended release 24 hr pantoprazole 40 mg tablet,delayed 40 mg PO DAILY 08/06/22 08/06/22 History release (Protonix) triamcinolone acetonide 0.1 % 1 applic topical BID PRN AFFECTED 08/06/22 08/06/22 History topical cream AREA Past Med/Surg History Medical History Abnormal ECG Acute hyponatremia Asthma inhalers prn Chronic steroid use prednisone daily CKD (chronic kidney disease), stage III COPD (chronic obstructive pulmonary disease) inhalers prn Depression DJD of right shoulder DM type 2 (diabetes mellitus, type 2) Dyslipidemia Elevated troponin Gastroparesis GERD (gastroesophageal reflux disease) Glaucoma Gout H/O interstitial lung disease "drug induced- methotrexate " Heart disease History of stroke HTN (hypertension) Migraines NSTEMI (non-ST elevated myocardial infarction) (08/06/13) Osteoarthritis Peripheral neuropathy Rheumatoid arthritis "on chronic steroids" RSV infection Syncope Surgical History H/O cardiac catheterization "cath 07/2013- single vessel CAD involving apical segment LAD, medical management indicated" H/O colonoscopy History of esophagogastroduodenoscopy (EGD) History of hysterectomy History of tooth extraction all top teeth S/P removal of ovarian cyst S/P rotator cuff repair "right shoulder" S/P total knee arthroplasty "left knee" Family History Father Family history of diabetes mellitus Mother Heart disease Hypertension Other No family history of adverse response to anesthesia Social History Smoking Status: Unknown if ever smoked Second Hand Exposure: No; Hx Alcohol Use: No Hx Substance Use: No Preferred Language: Kyrgyz Communication Ability: Effective Filler Room Attendant Required: No Beliefs That Will Affect Care: None marital status: Current Living Situation: Spouse Feels Safe at Home: Yes Assistive Devices: Glasses, Walker and Wheelchair Review of Systems Review of Systems: Unobtainable due to cognitive status limited ROS per HPI but remainder unobtainable due to cognitive status Physical Exam Physical Exam: Please see Dr. Sanchez's addendum for physical exam. Results & Data Results & Data ([facility]) Vital Signs (Past 12 Hours) Vital Signs Temp Pulse Pulse Resp BP BP Pulse Ox 08/06/22 15:42 90 16 08/06/22 13:56 85 20 115/76 95 08/06/22 13:54 97 08/06/22 13:33 36.7 C 86 18 132/72 94 O2 Del Method 08/06/22 15:42 08/06/22 13:56 Room Air 08/06/22 13:54 Room Air 08/06/22 13:33 Room Air Laboratory Results Short CBC 08/06/22 Range/Units 13:51 WBC 10.05 (4.8-10.8) K/ul Hgb 12.5 (12.0-16.0) g/dl Hct 36.2 (34.1-44.9) % Plt Count 261 (130-400) K/uL BMP 08/06/22 13:51 Sodium 128 L Potassium 4.1 Chloride 92 L Carbon Dioxide 25 BUN 17 Creatinine 1.15 Glucose 193 H Calcium 9.8 Liver Function 08/06/22 Range/Units 13:51 Total Bilirubin 0.9 (0.2-1.0) mg/dl AST 36 (13-39) U/L ALT 20 (7-52) U/L Alkaline Phosphatase 87 (34-104) U/L Albumin 3.5 (3.4-5.0) gm/dl Urine 08/06/22 Range/Units 15:20 Urine Color Dark Yellow Urine Appearance Cloudy A (Clear) Urine pH 5.0 (4.5-7.5) Ur Specific [place] 1.019 (1.000-1.030) Urine Protein 2+ H (Negative) Urine Glucose (UA) Negative (Negative) Diagnostic Findings Chest X-Ray 08/06/22 13:46 XR chest 1V portable CLINICAL HISTORY: weakness TECHNIQUE: Single frontal radiograph of the chest was obtained. Comparison: Comparison is made to chest radiograph 03/28/2022 FINDINGS: Right shoulder reverse arthroplasty is again seen. The cardiomediastinal silhouette is normal. Lungs are underinflated but clear. No evidence of pleural effusion or pneumothorax. IMPRESSION: No acute chest disease. ACT 112: Negative or not required by law. Electronically signed by: Jose Morton M.D. 08/06/2022 2:[address] 08/06/22 13:46 CT SCAN OF THE BRAIN WITHOUT IV CONTRAST CLINICAL HISTORY: Fall. Change in mental status. COMPARISON STUDY: CT of the brain dated 03/21/2022. TECHNIQUE: Unenhanced axial CT scan of the brain is performed from the vertex to the skull base. A dose lowering technique was utilized adhering to the principles of ALARA. The vertex was scanned twice due to motion artifact. CT DOSE: 844.62 mGy.cm FINDINGS: Brain parenchyma: There is age-related involutional change noting moderate subcortical and periventricular microangiopathic disease. There is no hemorrhage, mass effect, or evidence of acute territorial ischemia by CT criteria. Lai-white matter differentiation is preserved. No extra-axial fluid collection is seen. Ventricles, sulci, cisterns: Prominent secondary to involutional change. Intracranial vasculature: There is atherosclerotic calcification of the cavernous carotid and vertebral arteries. Calvarium: The skeletal structures are osteopenic. No depressed calvarial fracture is identified. Sinuses and mastoids: The visualized paranasal sinuses are clear. The mastoid air cells are well pneumatized. Orbits: The bony orbits are grossly intact. There are bilateral ocular lens implants. IMPRESSION: There is no hemorrhage, mass effect, or evidence of acute territorial ischemia by CT criteria. ACT 112: Negative or not required by law. Electronically signed by: Brigido Gutierrez M.D. 08/06/2022 2:44 PM Wrist X-Ray 08/06/22 14:17 XR wrist LT min 3V routine CLINICAL HISTORY: trauma. Left wrist pain. COMPARISON STUDY: None. 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 Possible nondisplaced fracture within the triquetral bone. The distal radius and ulna are intact. There is diffuse soft tissue swelling within the left breast and vascular calcifications. No dislocation. IMPRESSION: Possible nondisplaced fracture within the triquetral bone. ACT 112: Negative or not required by law. Electronically signed by: Peter Olivarez M.D. 08/06/2022 3:04 PM Wrist X-Ray 08/06/22 14:17 RIGHT WRIST 5 VIEWS CLINICAL HISTORY: Fall with right wrist pain. FINDINGS: 5 views of the right wrist are obtained. No prior studies are available for comparison at the time of dictation. The skeletal structures are osteopenic. No acute fracture is identified. Soft tissue swelling is present throughout the wrist. Advanced degenerative change is seen throughout the carpal bones with collapse of the proximal carpal row and proximal migration of the capitate. Bony sclerosis and cystic change is seen throughout. There is moderate to severe osteoarthritic change at the first carpometacarpal articulation with bony sclerosis, overgrowth, and subluxation. Atherosclerotic calcification is seen in the regional arteries. An IV catheter is present in the forearm. IMPRESSION: 1. Soft tissue swelling with no radiographic evidence of acute fracture. If there is clinical concern for occult fracture consider short-term radiographic follow-up. 2. Severe arthritic change as above with instability and collapse of the proximal carpal row. Electronically signed by: Brigido Gutierrez M.D. 08/06/2022 2:40 PM Supervising Physician Co-Signing Physician Notes Patient is a 76-year-old female with multiple comorbidities presents with history of worsening confusion, frequent falls and ambulatory dysfunction. Most of the history is obtained from patient and patient's at bedside. She was also noted to have fever intermittently. 2 days ago patient felt on her dresser and landed on her left shoulder and wrist resulting in significant pain of left wrist with any activity. Patient denies any chest pain, shortness of breath, dysuria, hematuria but history unreliable secondary to confusion. Patient has history of C. difficile in the past. Blood work and imaging studies reviewed. Physical Exam: Vitals signs as noted above General Appearance: Chronically appearing, no apparent distress Head: normocephalic, Atraumatic Eyes: normal inspection, EOMI Neck: supple, Trachea midline Respiratory/Chest: Normal breath sounds, CTA, No accessory muscle use Cardiovascular: S1, S2, No murmur Abdomen/GI:Soft, Non tender, Bowel sounds present Extremities/Musculoskeletal:normal inspection, Trace edema LLE thin compared to RLE--chronic as per family, LUE in splint Neurologic/Psych:AAOX2, grossly no focal neurological deficits Skin: normal color, warm Acute metabolic encephalopathy UTI Blood, urine cultures obtained. Empirically started on Rocephin IV fluids Chronic hyponatremia Likely secondary to SIADH Duloxetine likely contributing Monitor sodium levels Continue fluid restriction Hyponatremia work-up ordered. Multiple falls Wrist injury Orthopedics consulted for possible nondisplaced fracture within the triquetral bone PT OT as able Continue splint for now Abnormal EKG ? A. fib Significant aberration on EKG, difficult to interpret We will repeat EKG Consider further work-up if needed I personally reviewed the record. Patient is interviewed and examined at bedside. Patient's care is coordinated with Josephine Givens PA-C. Please refer to the documentation above for details of patient's presentation and for discussion of other issues.
--- NOTE | 2022-08-06 19:07 | Emergency Department Note ---
Impression & Plan Acute UTI, Generalized weakness, Fall, Atrial fibrillation by electrocardiogram ED Provider Note CHIEF COMPLAINT: Weakness, falls, left wrist pain HISTORY OF PRESENT ILLNESS: This 76-year-old female patient presents to the emergency department with complaints of weakness, falls and left wrist pain per her . He states she has had some deterioration in her mental status recently. REVIEW OF SYSTEMS: A review of systems was performed with positives and pertinent negatives listed in the history of present illness. 10 systems were reviewed and are otherwise negative. ALLERGIES: see below MEDICATIONS: see below PMH: see below SOCIAL HISTORY: see below DDx: UTI, PNA, viral sx, dehydration, metabolic abnormality, hypo/hyperglycemia, electrolyte disturbance, anemia, hypoxia, cardiac sources, intracerebral event, toxicologic, neurologic, as well as other pathologies. PHYSICAL EXAM: Vital signs reviewed. General: Chronically ill appearing 76 yo female, in no significant distress. HEENT: No scleral icterus, PERRLA, neck supple. Atraumatic. Dry mucous membranes. Cardiovascular: Irregular but rate controlled, distant heart tones. Pulmonary: Clear to auscultation bilaterally, normal work of breathing. Abdomen: Soft, nontender, nondistended, positive bowel sounds. Musculoskeletal: Atraumatic, no peripheral edema. Nontender to palpation over the cervical and thoracic spine. Tenderness and swelling noted to the bilateral wrists with any movement and deep palpation. Small hematomas to the dorsal surface of the wrists bilaterally. Neurologic: Patient awake alert and pleasantly confused, speech is mumbled. Skin: Warm, dry, no rash contusion noted to the left scapula, bilateral wrist and hands. EMERGENCY DEPARTMENT COURSE/MDM: This patient was evaluated and appeared to be in no significant distress. IV access was obtained and laboratory work was drawn. The patient was hydrated with normal saline solution, laboratory work reveals a hyponatremia and UTI. EKG reveals a likely atrial fibrillation however largely rate controlled. Patient was medicated with IV ceftriaxone and hydrated with normal saline solution. COVID swab was obtained and is negative. CT scan of the head was performed and is negative for acute intracranial abnormality. The patient's case was discussed with the hospitalist service who will be evaluating the patient for admission and further management. Patient and are aware of the plan and agreed. MONITORING: An order for cardiac monitoring was placed and the patient is noted to be in atrial fibrillation versus sinus rhythm at 90 beats per minute. RADIOLOGY: See below EKG: My interpretation reveals atrial fibrillation with RVR at 103 bpm. PVC or aberrantly conducted complexes noted. Right bundle branch block, likely previous inferior infarct. QTC is 489. When compared to previous dated March 22, 2022, atrial fibrillation has replaced a sinus bradycardia. 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 " Heart disease History of stroke HTN (hypertension) Migraines NSTEMI (non-ST elevated myocardial infarction) (08/06/13) Osteoarthritis Peripheral neuropathy Rheumatoid arthritis "on chronic steroids" RSV infection Syncope Surgical History H/O cardiac catheterization "cath 07/2013- single vessel CAD involving apical segment LAD, medical management indicated" H/O colonoscopy History of esophagogastroduodenoscopy (EGD) History of hysterectomy History of tooth extraction all top teeth S/P removal of ovarian cyst S/P rotator cuff repair "right shoulder" S/P total knee arthroplasty "left knee" Family History Father Family history of diabetes mellitus Mother Heart disease Hypertension Other No family history of adverse response to anesthesia Social History Smoking Status: Unknown if ever smoked Second Hand Exposure: No; Hx Alcohol Use: No Hx Substance Use: No Preferred Language: Pakistani Communication Ability: Effective Braille Coder Required: No Beliefs That Will Affect Care: None marital status: Current Living Situation: Spouse Feels Safe at Home: Yes Assistive Devices: Glasses, Walker and Wheelchair Allergies Allergies Allergy/AdvReac Type Severity Reaction Status Date / Time Influenza Virus Vaccines Allergy Severe FLOWN TO Verified 08/06/22 17:37 [facility]. methotrexate Allergy Intermediate RASH/PNEUMO Verified 08/06/22 17:37 NITIS Penicillins Allergy Intermediate hives Verified 08/06/22 17:37 ranitidine Allergy Intermediate rash Verified 08/06/22 17:37 [facility] AdvReac Severe CAUSE Uncoded 08/06/22 17:37 BREATHING ISSUES Home Meds Home Medications Medication Instructions Recorded Confirmed duloxetine 30 mg capsule,delayed 60 mg PO DAILY 07/20/18 08/06/22 release folic acid 1 mg tablet 1 mg PO QAM 07/20/18 08/06/22 prednisone 5 mg tablet 5 mg PO QAM 07/20/18 08/06/22 albuterol sulfate 90 mcg/actuation 2 puff inhalation Q4 PRN Shortness 03/07/19 08/06/22 aerosol inhaler (ProAir HFA) Of Breath cyanocobalamin (vitamin B-12) 2,000 mcg PO 3XWK 03/07/19 08/06/22 1,000 mcg tablet (Vitamin B-12) vit A 300 mcg-C 200 mg-E 27 1 tab PO QDL 03/07/19 08/06/22 mg-lutein 2 mg and minerals tablet (Ocuvite with Lutein) multivit with 1 tab PO QDL 11/12/19 08/06/22 jncnxphk-unqv-KT-lutein 8 mg iron-400 mcg-300 mcg tablet (Centrum Silver Women) montelukast 10 mg tablet 10 mg PO HS 11/15/20 08/06/22 latanoprost 0.005 % eye drops 1 drp OPB HS 01/03/21 08/06/22 solifenacin 10 mg tablet (Vesicare) 10 mg PO QDL 08/22/21 08/06/22 acetaminophen 325 mg tablet 325 mg PO BID PRN Pain 03/21/22 08/06/22 fluticasone furoate 200 1 inh inhalation DAILY 03/21/22 08/06/22 mcg-vilanterol 25 mcg/dose inhalation powder (Breo Ellipta) thiamine HCl (vitamin B1) 100 mg 50 mg PO DAILY 03/21/22 08/06/22 tablet vancomycin 125 mg capsule 125 mg PO DAILY 03/21/22 08/06/22 Lactobacillus rhamnosus GG 5 5 cell PO BID 08/06/22 08/06/22 billion cell oral powder packet ([facility] [employer] Probiotics) albuterol sulfate 2.5 mg/3 mL 2.5 mg inhalation DIRECTED PRN 08/06/22 08/06/22 (0.083 %) solution for nebulization Shortness Of Breath Or Wheezing amlodipine 10 mg tablet 10 mg PO DAILY 08/06/22 08/06/22 betamethasone dipropionate 0.05 % 1 applic topical BID PRN AFFECTED 08/06/22 08/06/22 topical cream AREA cholecalciferol (vitamin D3) 50 50 mcg PO DAILY 08/06/22 08/06/22 mcg (2,000 unit) capsule (Vitamin D3) ferrous sulfate 325 mg (65 mg 325 mg PO DAILY 08/06/22 08/06/22 iron) tablet levalbuterol HCl 1.25 mg/3 mL 1.25 mg inhalation Q4H PRN 08/06/22 08/06/22 solution for nebulization (Xopenex) SOB/COUGH/WHEEZING menthol 0.44 %-zinc oxide 20.6 % 1 applic topical BID PRN AFFECTED 08/06/22 08/06/22 topical ointment (Calmoseptine) AREA metoprolol succinate 25 mg 75 mg PO DAILY 08/06/22 08/06/22 tablet,extended release 24 hr pantoprazole 40 mg tablet,delayed 40 mg PO DAILY 08/06/22 08/06/22 release (Protonix) triamcinolone acetonide 0.1 % 1 applic topical BID PRN AFFECTED 08/06/22 08/06/22 topical cream AREA Previous Rx's Medication Instructions Recorded clopidogrel 75 mg tablet 75 mg PO QAM #30 tabs 04/01/22 magnesium oxide 400 mg (241.3 mg 400 mg PO BID #60 tabs 04/01/22 magnesium) tablet rosuvastatin 10 mg tablet 20 mg PO QAM #60 tabs 04/01/22 Results & Data (ED) Vital Signs Vital Signs - 24 hr 08/06/22 13:33 08/06/22 13:54 08/06/22 13:56 Temperature 36.7 C Temperature Source Temporal Artery Scan Pulse Rate - Lying Pulse Rate - Sitting Pulse Rate - Standing Pulse Rate 86 Pulse Rate [Apical] 85 Pulse Rhythm [Apical] Respiratory Rate 18 20 Respiratory Effort / Characteristics Non-Labored Spontaneous Respiratory Depth Normal Respiratory Pattern Regular Blood Pressure - Lying Blood Pressure - Sitting Blood Pressure- Standing Blood Pressure 132/72 Blood Pressure [Right Arm] 115/76 Blood Pressure Mean 92 Blood Pressure Mean [Right Arm] 89 Blood Pressure Position Sitting Pulse Oximetry 94 97 95 Oxygen Delivery Method Room Air Room Air Room Air Sepsis Recent Fever Within 48 Hours Yes Sepsis New/Unexplained Change in Mental Status Yes Sepsis Action Taken by Nursing No Action Required 08/06/22 14:09 08/06/22 15:42 Temperature Temperature Source Pulse Rate - Lying 86 Pulse Rate - Sitting 80 Pulse Rate - Standing 104 H Pulse Rate Pulse Rate [Apical] 90 Pulse Rhythm [Apical] Irregular Respiratory Rate 16 Respiratory Effort / Characteristics Respiratory Depth Normal Respiratory Pattern Blood Pressure - Lying 115/76 Blood Pressure - Sitting 116/56 L Blood Pressure- Standing 108/49 L Blood Pressure Blood Pressure [Right Arm] Blood Pressure Mean Blood Pressure Mean [Right Arm] Blood Pressure Position Pulse Oximetry Oxygen Delivery Method Sepsis Recent Fever Within 48 Hours Sepsis New/Unexplained Change in Mental Status Sepsis Action Taken by Snf Medications Current Medication List: was personally reviewed by me Laboratory Data Attestation: I reviewed the patient's lab results. Result diagrams: 08/06/22 13:51 08/06/22 13:51 Lab Results 08/06/22 08/06/22 08/06/22 Range/Units 13:51 13:51 13:51 WBC 10.05 (4.8-10.8) K/ul RBC 4.55 (3.93-5.22) M/uL Hgb 12.5 (12.0-16.0) g/dl Hct 36.2 (34.1-44.9) % MCV 79.6 L (80.0-100.0) fL MCH 27.5 (25.0-34.0) pg MCHC 34.5 (32.0-36.0) g/dL RDW Std Deviation 47.9 H (36.4-46.3) fL RDW Coeff of Xochitl 16.9 H (11.5-14.5) % Plt Count 261 (130-400) K/uL MPV 8.4 L (9.4-12.3) fL Immature Gran % (Auto) 0.5 % Neut % (Auto) 56.8 % Lymph % (Auto) 30.0 % [place] % (Auto) 12.1 % Eos % (Auto) 0.2 % Baso % (Auto) 0.4 % Neut # (Auto) 5.70 (1.4-6.5) K/uL Lymph # (Auto) 3.02 (1.2-3.4) K/uL [place] # (Auto) 1.22 H (0.24-0.82) K/uL Eos # (Auto) 0.02 (0-0.50) K/uL Baso # (Auto) 0.04 (0-0.2) K/uL Immature Gran # (Auto) 0.05 H (0.00-0.02) K/uL Sodium 128 L (136-145) mmol/L Potassium 4.1 (3.5-5.1) mmol/L Chloride 92 L (98-107) mmol/L Carbon Dioxide 25 (21-32) mmol/L Anion Gap 11 (3-11) BUN 17 (6-23) mg/dl Creatinine 1.15 (0.6-1.2) mg/dl Est Cr Clr Drug Dosing Not Reportable Est GFR ( Amer) 54.3 ml/min Est GFR (Non-Af Amer) 46.8 ml/min BUN/Creatinine Ratio 14.8 (10-20) Glucose 193 H (70-99(Fasting)) mg/dl Calcium 9.8 (8.5-10.1) mg/dl Magnesium 1.8 (1.7-2.4) mg/dl Total Bilirubin 0.9 (0.2-1.0) mg/dl AST 36 (13-39) U/L ALT 20 (7-52) U/L Alkaline Phosphatase 87 (34-104) U/L Troponin I High Sens 21.4 H (0-14) pg/ml Total Protein 7.5 (6.0-8.3) gm/dl Albumin 3.5 (3.4-5.0) gm/dl Globulin 4.0 (2.5-4.0) gm/dl Albumin/Globulin Ratio 0.9 (0.9-2) TSH 2.094 (0.300-4.500) uIu/ml Urine Color Urine Appearance (Clear) Urine pH (4.5-7.5) Ur Specific [place] (1.000-1.030) Urine Protein (Negative) Urine Glucose (UA) (Negative) Urine Ketones (Negative) Urine Blood (Negative) Urine Nitrite (Negative) Urine Bilirubin (Negative) Urine Urobilinogen (Negative) Ur Leukocyte Esterase (Negative) Urine WBC (Auto) (0-5) /hpf Urine RBC (Auto) (0-4) /hpf U Hyaline Cast (Auto) (0-5) /lpf U Epithel Cells (Auto) (0-5) /lpf Urine Bacteria (Auto) (Negative) SARS-CoV-2, RNA, NAAT (NEGATIVE) 08/06/22 08/06/22 Range/Units 13:51 15:20 WBC (4.8-10.8) K/ul RBC (3.93-5.22) M/uL Hgb (12.0-16.0) g/dl Hct (34.1-44.9) % MCV (80.0-100.0) fL MCH (25.0-34.0) pg MCHC (32.0-36.0) g/dL RDW Std Deviation (36.4-46.3) fL RDW Coeff of Xochitl (11.5-14.5) % Plt Count (130-400) K/uL MPV (9.4-12.3) fL Immature Gran % (Auto) % Neut % (Auto) % Lymph % (Auto) % [place] % (Auto) % Eos % (Auto) % Baso % (Auto) % Neut # (Auto) (1.4-6.5) K/uL Lymph # (Auto) (1.2-3.4) K/uL [place] # (Auto) (0.24-0.82) K/uL Eos # (Auto) (0-0.50) K/uL Baso # (Auto) (0-0.2) K/uL Immature Gran # (Auto) (0.00-0.02) K/uL Sodium (136-145) mmol/L Potassium (3.5-5.1) mmol/L Chloride (98-107) mmol/L Carbon Dioxide (21-32) mmol/L Anion Gap (3-11) BUN (6-23) mg/dl Creatinine (0.6-1.2) mg/dl Est Cr Clr Drug Dosing Est GFR ( Amer) ml/min Est GFR (Non-Af Amer) ml/min BUN/Creatinine Ratio (10-20) Glucose (70-99(Fasting)) mg/dl Calcium (8.5-10.1) mg/dl Magnesium (1.7-2.4) mg/dl Total Bilirubin (0.2-1.0) mg/dl AST (13-39) U/L ALT (7-52) U/L Alkaline Phosphatase (34-104) U/L Troponin I High Sens (0-14) pg/ml Total Protein (6.0-8.3) gm/dl Albumin (3.4-5.0) gm/dl Globulin (2.5-4.0) gm/dl Albumin/Globulin Ratio (0.9-2) TSH (0.300-4.500) uIu/ml Urine Color Dark Yellow Urine Appearance Cloudy A (Clear) Urine pH 5.0 (4.5-7.5) Ur Specific [place] 1.019 (1.000-1.030) Urine Protein 2+ H (Negative) Urine Glucose (UA) Negative (Negative) Urine Ketones Trace H (Negative) Urine Blood Trace H (Negative) Urine Nitrite Positive A (Negative) Urine Bilirubin Negative (Negative) Urine Urobilinogen Negative (Negative) Ur Leukocyte Esterase 2+ H (Negative) Urine WBC (Auto) >30 H (0-5) /hpf Urine RBC (Auto) 0-4 (0-4) /hpf U Hyaline Cast (Auto) 10-30 H (0-5) /lpf U Epithel Cells (Auto) 0-5 (0-5) /lpf Urine Bacteria (Auto) 4+ H (Negative) SARS-CoV-2, RNA, NAAT NEGATIVE (NEGATIVE) Administered Medications Sodium Chloride (Nss 1000ml) 1,000 mls @ 100 mls/hr IV .Q10H KARLA Stop: 08/06/22 23:59 Last Admin: 08/06/22 14:09 Dose: 100 mls/hr Documented By: CYRIL Discontinued Medications Ceftriaxone Sodium (Rocephin) 1,000 mg in 50 mls @ 100 mls/hr IV NOW STA Stop: 08/06/22 17:10 Last Infusion: 08/06/22 17:26 Dose: 0 mls/hr Documented By: Admin: 08/06/22 16:56 Dose: 100 mls/hr Documented By: AM Insulin Human Regular (Novolin-R Insulin Per Unit Charge) 4 units SC NOW STA Stop: 08/06/22 14:58 Last Admin: 08/06/22 15:26 Dose: 4 units Documented By: JUDSON Co-signed By: KV Imaging Data Radiologist's Impression: Chest X-Ray 08/06/22 13:46 XR chest 1V portable CLINICAL HISTORY: weakness TECHNIQUE: Single frontal radiograph of the chest was obtained. Comparison: Comparison is made to chest radiograph 03/28/2022 FINDINGS: Right shoulder reverse arthroplasty is again seen. The cardiomediastinal silhouette is normal. Lungs are underinflated but clear. No evidence of pleural effusion or pneumothorax. IMPRESSION: No acute chest disease. ACT 112: Negative or not required by law. Electronically signed by: Jose Morton M.D. 08/06/2022 2:[address] 08/06/22 13:46 CT SCAN OF THE BRAIN WITHOUT IV CONTRAST CLINICAL HISTORY: Fall. Change in mental status. COMPARISON STUDY: CT of the brain dated 03/21/2022. TECHNIQUE: Unenhanced axial CT scan of the brain is performed from the vertex to the skull base. A dose lowering technique was utilized adhering to the principles of ALARA. The vertex was scanned twice due to motion artifact. CT DOSE: 844.62 mGy.cm FINDINGS: Brain parenchyma: There is age-related involutional change noting moderate subcortical and periventricular microangiopathic disease. There is no hemorrhage, mass effect, or evidence of acute territorial ischemia by CT criteria. Lai-white matter differentiation is preserved. No extra-axial fluid c ollection is seen. Ventricles, sulci, cisterns: Prominent secondary to involutional change. Intracranial vasculature: There is atherosclerotic calcification of the cavernous carotid and vertebral arteries. Calvarium: The skeletal structures are osteopenic. No depressed calvarial fracture is identified. Sinuses and mastoids: The visualized paranasal sinuses are clear. The mastoid air cells are well pneumatized. Orbits: The bony orbits are grossly intact. There are bilateral ocular lens implants. IMPRESSION: There is no hemorrhage, mass effect, or evidence of acute territorial ischemia by CT criteria. ACT 112: Negative or not required by law. Electronically signed by: Brigido Gutierrez M.D. 08/06/2022 2:44 PM Wrist X-Ray 08/06/22 14:17 XR wrist LT min 3V routine CLINICAL HISTORY: trauma. Left wrist pain. COMPARISON STUDY: None. 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 Possible nondisplaced fracture within the triquetral bone. The distal radius and ulna are intact. There is diffuse soft tissue swelling within the left breast and vascular calcifications. No dislocation. IMPRESSION: Possible nondisplaced fracture within the triquetral bone. ACT 112: Negative or not required by law. Electronically signed by: Peter Olivarez M.D. 08/06/2022 3:04 PM Wrist X-Ray 08/06/22 14:17 RIGHT WRIST 5 VIEWS CLINICAL HISTORY: Fall with right wrist pain. FINDINGS: 5 views of the right wrist are obtained. No prior studies are available for comparison at the time of dictation. The skeletal structures are osteopenic. No acute fracture is identified. Soft tissue swelling is present throughout the wrist. Advanced degenerative change is seen throughout the carpal bones with collapse of the proximal carpal row and proximal migration of the capitate. Bony sclerosis and cystic change is seen throughout. There is moderate to severe osteoarthritic change at the first carpometacarpal articulation with bony sclerosis, overgrowth, and subluxation. Atherosclerotic calcification is seen in the regional arteries. An IV catheter is present in the forearm. IMPRESSION: 1. Soft tissue swelling with no radiographic evidence of acute fracture. If there is clinical concern for occult fracture consider short-term radiographic follow-up. 2. Severe arthritic change as above with instability and collapse of the proximal carpal row. Electronically signed by: Brigido Gutierrez M.D. 08/06/2022 2:40 PM Blood Pressure Blood Pressure Findings: Normal blood pressure Blood Pressure Disposition: did not require urgent referral Discharge Plan Visit Data Chief Complaint: Fall Stated Complaint: FALL, WEAKNESS, CONFUSED ED Provider: Ermelinda Vasquez Discharge Problem: Acute UTI, Generalized weakness, Fall, Atrial fibrillation by electrocardiogram Forms Stand Alone Forms: [facility] Prescriptions Prescriptions: No Action latanoprost 0.005 % drops 1 drp OPB HS cyanocobalamin (vitamin B-12) [Vitamin B-12] 1,000 mcg Tablet 2,000 mcg PO 3XWK Rx Instructions: mon, wed, fri albuterol sulfate [ProAir HFA] 90 mcg/actuation Hfa Aerosol Inhaler 2 puff INHALATION Q4 PRN (Reason: Shortness Of Breath) Ocuvite with Lutein 1,000 unit-200 mg-60 unit-2 mg Tablet 1 tab PO QDL prednisone 5 mg tablet 5 mg PO QAM folic acid 1 mg tablet 1 mg PO QAM duloxetine 30 mg capsule,delayed release(DR/EC) 60 mg PO DAILY Centrum Silver Women 8 mg iron-400 mcg-300 mcg Tablet 1 tab PO QDL montelukast 10 mg Tablet 10 mg PO HS vancomycin 125 mg capsule 125 mg PO DAILY thiamine HCl (vitamin B1) 100 mg tablet 50 mg PO DAILY acetaminophen 325 mg Tablet 325 mg PO BID PRN (Reason: Pain) fluticasone furoate-vilanterol [Breo Ellipta] 200-25 mcg/dose blister with device 1 inh INHALATION DAILY clopidogrel 75 mg Tablet 75 mg PO QAM Qty: 30 0RF magnesium oxide 400 mg (241.3 mg magnesium) Tablet 400 mg PO BID Qty: 60 0RF rosuvastatin 10 mg Tablet 20 mg PO QAM Qty: 60 0RF albuterol sulfate [Proventil] 2.5 mg /3 mL (0.083 %) Solution For Nebulization 2.5 mg INHALATION DIRECTED PRN (Reason: Shortness Of Breath Or Wheezing) triamcinolone acetonide 0.1 % Cream 1 applic TOPICAL BID PRN (Reason: AFFECTED AREA) betamethasone dipropionate 0.05 % Cream 1 applic TOPICAL BID PRN (Reason: AFFECTED AREA) levalbuterol HCl [Xopenex] 1.25 mg/3 mL Solution For Nebulization 1.25 mg INHALATION Q4H PRN (Reason: SOB/COUGH/WHEEZING) menthol-zinc oxide [Calmoseptine] 0.44-20.6 % Ointment 1 applic TOPICAL BID PRN (Reason: AFFECTED AREA) [employer] Pro[employer] 5 billion cell Powder In Packet 5 cell PO BID ferrous sulfate 325 mg (65 mg iron) Tablet 325 mg PO DAILY metoprolol succinate 25 mg Tablet Extended Release 24 Hr 75 mg PO DAILY cholecalciferol (vitamin D3) [Vitamin D3] 50 mcg (2,000 unit) Capsule 50 mcg PO DAILY amlodipine 10 mg tablet 10 mg PO DAILY pantoprazole [Protonix] 40 mg Tablet,Delayed Release (Dr/Ec) 40 mg PO DAILY solifenacin [Vesicare] 10 mg tablet 10 mg PO QDL Referrals Referrals: Leni Moyer DO [Primary Care Provider] -
[2022-08-06] MEDS ORDERED: CARBOHYDRATES FOR HYPOGLYCEMIA PO PRN (21:53)
[2022-08-06] MEDS ORDERED: ALBUTEROL HFA 8 GM INHALER INH PRN (21:53)
[2022-08-06] MEDS ORDERED: MENTHOL-ZINC OXIDE 360 APPLN/120 GM TUBE EXT PRN (21:53)
[2022-08-06] MEDS ORDERED: ONDANSETRON INJ 2 MG/ML 2 ML VIAL IV PRN (21:53)
[2022-08-06] MEDS ORDERED: GLUCOSE 40% GEL 15 GM TUBE PO PRN (21:53)
[2022-08-06] MEDS ORDERED: ALBUTEROL 0.083% NEBU SOLN 3 ML VIAL INH PRN (21:53)
[2022-08-06] MEDS ORDERED: LEVALBUTEROL HCL 1.25 MG/3 ML NEB INH PRN (21:53)
[2022-08-06] MEDS ORDERED: GLUCOSE 10 TAB/TUBE PO PRN (21:53)
[2022-08-06] MEDS ORDERED: DEXTROSE 50% 50 ML SYRINGE IV PRN (21:53)
[2022-08-06] MEDS ORDERED: TRIAMCINOLONE ACET 0.1% CR 15 GM TUBE TOP PRN (21:53)
[2022-08-06] MEDS ORDERED: GLUCAGON FOR INJ 1 MG VIAL SQ PRN (21:53)
[2022-08-06] MEDS ORDERED: ACETAMINOPHEN 325 MG TAB PO PRN (21:53)
[2022-08-06] MEDS ORDERED: BETAMETHASONE DIP AUG (DIPROLENE) 0.05% CR 15 GM TUBE EXT PRN (22:11)
[2022-08-06] MEDS: INSULIN ASPART PER UNIT SC SCH (22:12)
[2022-08-06] MEDS: HEPARIN SOD 5,000 UNIT/0.5 ML VIAL SQ SCH (23:01)
[2022-08-06] MEDS: ADVANCED PROBIOTIC 1250 MG CAPSULE PO SCH (23:01)
[2022-08-06] MEDS: LATANOPROST 0.005% OP SOLN 2.5 ML BTL OPB SCH (23:02)
[2022-08-06] MEDS: MAGNESIUM OXIDE 400 MG TAB PO SCH (23:02)
[2022-08-06] MEDS: MONTELUKAST SODIUM 10 MG TABLET PO SCH (23:02)
[2022-08-07] MEDS ORDERED: MAGNESIUM SULFATE / D5W 1 GM/100 ML BAG IV ONE (00:46)
[2022-08-07 05:48] LABS: Hematocrit (blood only) 33.1 % (34.1-44.9); Hemoglobin 11.6 g/dl (12.0-16.0); Mean Corpuscular Hemoglobin 27.6 pg (25.0-34.0); Mean Corpuscular Volume 78.6 fL (80.0-100.0); Mean Platelet Volume 8.2 fL (9.4-12.3); Platelet Count 219 K/uL (130-400); RDW Coefficient of Variation 17.2 % (11.5-14.5); RDW Standard Deviation 48.4 fL (36.4-46.3); Red Blood Count 4.21 M/uL (3.93-5.22); White Blood Count 7.91 K/ul (4.8-10.8)
[2022-08-07] MEDS: HEPARIN SOD 5,000 UNIT/0.5 ML VIAL SQ SCH ×3 (05:51→22:05)
[2022-08-07 06:17] LABS: Calcium 9.4 mg/dl (8.5-10.1); Creatinine Clr Calc Pharmacy 40.7 ml/min; Est GFR (African American) 69.3 ml/min; Est GFR (Non-African American) 59.8 ml/min; Potassium 3.6 mmol/L (3.5-5.1)
--- NOTE | 2022-08-07 07:20 | Electrocardiogram Report ---
Test Reason : Blood Pressure : / mmHG Vent. Rate : 103 BPM Atrial Rate : 119 BPM P-R Int : 000 ms QRS Dur : 124 ms QT Int : 374 ms P-R-T Axes : 000 039 -22 degrees QTc Int : 489 ms Sinus tachycardia with frequent Premature supraventricular complexes Right bundle branch block Cannot rule out Inferior infarct , age undetermined Abnormal ECG When compared with ECG of 22-MAR-2022 05:24, Vent. rate has increased BY 48 BPM Premature supraventricular complexes are now Present Confirmed by Pawan Mcgowan ([id number]) on 08/07/2022 7:19:38 AM Referred By: Confirmed By:Pawan Mcgowan
[2022-08-07] MEDS ORDERED: CHOLECALCIFEROL 1,000 UNITS 25 MCG TAB PO SCH (09:00)
[2022-08-07] MEDS ORDERED: FOLIC ACID 1 MG TAB PO SCH (09:00)
[2022-08-07] MEDS ORDERED: FERROUS SULFATE 325 MG TAB PO SCH (09:00)
[2022-08-07] MEDS ORDERED: THIAMINE HCL 50 MG TABLET PO SCH (09:00)
[2022-08-07] MEDS: amLODIPine BESYLATE 5 MG TAB PO SCH (09:21)
[2022-08-07] MEDS: DULoxetine HCL 60 MG CAP PO SCH (09:22)
[2022-08-07] MEDS: CLOPIDOGREL BISULFATE 75 MG TAB PO SCH (09:22)
[2022-08-07] MEDS: PANTOprazole 40 MG TAB PO SCH (09:23)
[2022-08-07] MEDS: ADVANCED PROBIOTIC 1250 MG CAPSULE PO SCH ×2 (09:23→21:29)
[2022-08-07] MEDS: METOPROLOL SUCC 25MG EXT REL TAB PO SCH (09:23)
[2022-08-07] MEDS: predniSONE 5 MG TAB PO SCH (09:23)
[2022-08-07] MEDS: MAGNESIUM OXIDE 400 MG TAB PO SCH ×2 (09:23→21:28)
[2022-08-07] MEDS: RASPBERRY SYRUP 5 ML UDP PO SCH (09:23)
[2022-08-07] MEDS: ROSUVASTATIN CALCIUM 20 MG TAB PO SCH (09:24)
[2022-08-07] MEDS: VANCOMYCIN HCL 125 MG/2.5ML SOLN PO SCH (09:24)
--- NOTE | 2022-08-07 10:25 | Electrocardiogram Report ---
Test Reason : Blood Pressure : / mmHG Vent. Rate : 117 BPM Atrial Rate : 178 BPM P-R Int : 248 ms QRS Dur : 124 ms QT Int : 362 ms P-R-T Axes : -24 064 -22 degrees QTc Int : 504 ms Sinus tachycardia with 1st degree A-V block with Premature atrial complexes Right bundle branch block Abnormal ECG When compared with ECG of 06-AUG-2022 13:44, IL interval has increased Borderline criteria for Inferior infarct are no longer Present Confirmed by Speedy Candelario ([id number]) on 08/07/2022 10:25:06 AM Referred By: REFERRED SELF Confirmed By:Speedy Candelario
[2022-08-07] MEDS: INSULIN ASPART PER UNIT SC SCH ×3 (10:35→17:34)
--- NOTE | 2022-08-07 10:35 | Electrocardiogram Report ---
Test Reason : Blood Pressure : / mmHG Vent. Rate : 106 BPM Atrial Rate : 106 BPM P-R Int : 216 ms QRS Dur : 136 ms QT Int : 368 ms P-R-T Axes : 000 046 -26 degrees QTc Int : 488 ms Sinus tachycardia with 1st degree A-V block with frequent Premature atrial complexes with occasional Premature ventricular complexes Right bundle branch block Abnormal ECG When compared with ECG of 06-AUG-2022 21:24, No significant change Confirmed by Speedy Candelario ([id number]) on 08/07/2022 10:35:03 AM Referred By: REFERRED SELF Confirmed By:Speedy Candelario
--- NOTE | 2022-08-07 10:44 | Hospitalist Progress Note ---
Date of Service August 07, 2022 Assessment & Plan (1) Sepsis: Plan: possible developing sepsis- see plan above. (2) Acute metabolic encephalopathy: Plan: 2/2 UTI, likely ongoing for last couple of weeks. Cont antibiotics for infection. (3) UTI (urinary tract infection): Plan: GNB in urine with slight improvement since starting the Rocephin yesterday. Cont abx and avoid combs if possible. Blood cultures are pending to ensure no evidence of bacteremia with ongoing fever this am. She is questionably developing sepsis so will bolus with some fluid and recheck lactate, CBC and BMP. Later in the evening I was asked to re-evaluate her for worsening lethargy. She was more difficult to awaken but was able to wake up and tell us that she was wet from urine but otherwise had no current issues. She states she thought she was in my office. Out of abundance of caution will obtain ABG, trop, CT head, CXR, and repeat labs as above. (4) Hyponatremia: Plan: Initial sodium of 128 but when corrected for hyperglycemia is 129, which is close to patient baseline Is on duloxetine so concern for SIADH. Will obtain serum awesome and urine studies. Fluid restrict at 1.8 L is being removed in setting of possible developing sepsis. (5) Fall: Plan: Progressive weakness likely related to active infection in setting of prior h/o stroke with known residual deficits. (6) Wrist injury: Plan: L triquetrum fracture. Orthopedics is consulted. Splint in place and she appears to have pain well managed. I am holding on giving continuous acetaminophen given the level of somnolence. Would not give any narcotics or other pain meds at this time until mental status improves. She doesn't appear to have pain in the wrist, but if her mental status doesn't improve, will consider scheduling some pain meds. Cont splint and ice to area TID to combat swelling over the next few days. (7) Generalized weakness: Plan: PT/OT (8) Recurrent Clostridioides difficile infection: Plan: Seen by ID on 07/18/22. Has had 3 recurrences of c difficile diarrhea. Chronically on vancomycin once daily for suppression which has been keeping her BMs to 1-2 formed stools daily. She continues on this now and will not stop it until she is off the current antibiotics. Today she is altered with waxing/waning mental status making administration tricky. Cont vanc PO once daily. (9) DM type 2 (diabetes mellitus, type 2): Plan: She has a slightly elevated A1C in the 6.5-7 range in the past. On chronic prednisone therapy. Not taking any blood glucose lowering medications at home. Current inpatient glucose is at goal. She has not required much insulin coverage this admission. To minimize delirium and pain, will check glucose but hold on any insulin coverage at this time. If her blood glucose is consistently >200 on random checks or consistently >125 fasting, will consider additional treatment to lower the blood glucose. (10) History of stroke: Plan: chronic, cont medical management. (11) CKD (chronic kidney disease), stage III: Plan: chronic, stable. Cont monitoring and renally dose meds as needed. (12) HTN (hypertension): Plan: chronic, at goal. Cont current management (13) Depression: Plan: chronic, stable. Cont duloxetine per home regimen. (14) DVT prophylaxis: Plan: heparin Full Code Dispo-cont telemetry Belkis Seymour DO [facility] Hospitalist Admission and Anticipated Discharge Date Admission Date: August 06, 2022 Subjective 76 yo F presented to the hospital with AMS, workup reveals a UTI. at bedside today states that she has been having progressively higher fevers over two weeks along with progressive weakness and confusion. Today Belem is able to wake up to voice. She knows it is July and that today is thanksgiving She is unable to give an accurate history from poor memory over the last few days and confusion Currenlty denies pain, more no pain in her left fractured wrist. states that hyperglycemia is new and that she is on prednisone for RA Review of Systems Review of Systems: All systems were reviewed and negative except as indicated on subjective above. Physical Exam Physical Exam: CONSTITUTIONAL: WNWD, vitals as above, ill appearing but not in any acute distress. EYES: pupils are round and equal bilaterally, normal conjunctivae, no scleral icterus ENT: external ear and nose normal, oropharynx clear, edentulous and mouth breathing when falls asleep. NECK: trachea midline, RESPIRATORY: clear to auscultation bilaterally, no crackles, rales or wheezes, poor respiratory effort when prompted but no over thachypnea noted. CARDIOVASCULAR: tachy rate and regular rhythm, 3/6 KENJI heard at LSB, no JVD, no peripheral edema CHEST: inspection of chest was normal GASTROINTESTINAL: soft, nontender, Nd, no guarding MUSCULOSKELETAL: strength 5/5 throughout with right leg and arm weaker gene rally than the left. Head is normocephalic and atraumatic SKIN: warm and dry NEUROLOGIC: CN 2-12 grossly intact, abnormal cognition in that she is lethargic, but will awaken to voice and has normal speech, oriented to person and time, PSYCHIATRIC: alert cooperative Results & Data Results & Data ([facility]) Vital Signs (Past 12 Hours) Vital Signs Temp Pulse Pulse Resp BP Pulse Ox O2 Del Method 08/07/22 07:54 36.5 C 69 20 161/68 H 93 Room Air 08/07/22 07:53 110 H 08/07/22 03:12 36.6 C 72 18 163/47 H 92 Room Air Laboratory Results Short CBC 08/06/22 08/07/22 Range/Units 13:51 05:25 WBC 10.05 7.91 (4.8-10.8) K/ul Hgb 12.5 11.6 L (12.0-16.0) g/dl Hct 36.2 33.1 L (34.1-44.9) % Plt Count 261 219 (130-400) K/uL BMP 08/06/22 08/07/22 13:51 05:25 Sodium 128 L 129 L Potassium 4.1 3.6 Chloride 92 L 93 L Carbon Dioxide 25 24 BUN 17 16 Creatinine 1.15 0.94 Glucose 193 H 146 H Calcium 9.8 9.4 Liver Function 08/06/22 Range/Units 13:51 Total Bilirubin 0.9 (0.2-1.0) mg/dl AST 36 (13-39) U/L ALT 20 (7-52) U/L Alkaline Phosphatase 87 (34-104) U/L Albumin 3.5 (3.4-5.0) gm/dl Urine 08/06/22 Range/Units 15:20 Urine Color Dark Yellow Urine Appearance Cloudy A (Clear) Urine pH 5.0 (4.5-7.5) Ur Specific [place] 1.019 (1.000-1.030) Urine Protein 2+ H (Negative) Urine Glucose (UA) Negative (Negative) Medications Administered Current Inpatient Medications Acetaminophen (Acetaminophen 325 Mg Tab) 650 mg PO Q4H PRN PRN Reason: Pain or Fever Stop: 09/05/22 21:52 Albuterol (Albuterol Hfa 8 Gm Inhaler) 2 puffs INH Q4 PRN PRN Reason: Shortness Of Breath Stop: 09/05/22 21:52 Amlodipine Besylate (Amlodipine Besylate 5 Mg Tab) 10 mg PO DAILY KARLA Stop: 09/06/22 08:59 Last Admin: 08/07/22 09:21 Dose: Not Given Betamethasone Dipropion Augmented (Betamethasone Dip Aug (Diprolene) 0.05% Cr 15 Gm Tube) 1 appln EXT BID PRN PRN Reason: AFFECTED AREA Stop: 09/05/22 22:10 Calamine/Phenol (Menthol-Zinc Oxide 360 Appln/120 Gm Tube) 1 appln EXT BID PRN PRN Reason: AFFECTED AREA Stop: 09/05/22 21:52 Clopidogrel Bisulfate (Clopidogrel Bisulfate 75 Mg Tab) 75 mg PO QAM [facility] Stop: 09/06/22 08:59 Last Admin: 08/07/22 09:22 Dose: Not Given Cyanocobalamin (Cyanocobalamin (B-12) 500 Mcg Tablet) 2,000 mcg PO [id number] [facility] Stop: 09/07/22 08:59 Dextrose (Dextrose 50% 50 Ml Syringe) 25 - 50 ml IV UD PRN; Protocol PRN Reason: Hypoglycemia Protocol Stop: 09/05/22 21:52 Duloxetine HCl (Duloxetine Hcl 60 Mg Cap) 60 mg PO DAILY KARLA Stop: 09/06/22 08:59 Last Admin: 08/07/22 09:22 Dose: Not Given Ferrous Sulfate (Ferrous Sulfate 325 Mg Tab) 325 mg PO DAILY KARLA Stop: 09/06/22 08:59 Last Admin: 08/07/22 09:22 Dose: Not Given Fluticasone/Vilanterol (Fluticasone/Vilanterol 200/25mcg 14 Puffs/Inhaler) 1 puffs INH DAILY KARLA Stop: 09/06/22 08:59 Folic Acid (Folic Acid 1 Mg Tab) 1 mg PO QAM [facility] Stop: 09/06/22 08:59 Last Admin: 08/07/22 09:22 Dose: Not Given Glucagon (Glucagon For Inj 1 Mg Vial) 1 mg SQ UD PRN; Protocol PRN Reason: Hypoglycemia Protocol Stop: 09/05/22 21:52 Glucose (Glucose 40% Gel 15 Gm Tube) 15 - 30 gm PO UD PRN; Protocol PRN Reason: Hypoglycemia Protocol Stop: 09/05/22 21:52 Glucose (Glucose 10 Tab/Tube) 4 - 8 tab PO UD PRN; Protocol PRN Reason: Hypoglycemia Treatment Stop: 09/05/22 21:52 Heparin Sodium (Porcine) (Heparin Sod 5,000 Unit/0.5 Ml Vial) 5,000 units SQ Q8 K[facility]LA Stop: 09/05/22 21:59 Last Admin: 08/07/22 05:51 Dose: 5,000 units Ceftriaxone Sodium 1,000 mg/ (Dextrose) 60 mls @ 100 mls/hr IV DAILY [facility]; Protocol Stop: 08/12/22 08:59 Insulin Aspart (Insulin Aspart Per Unit) 0 units SC ACHS [facility] Stop: 09/05/22 21:52 Last Admin: 08/07/22 10:35 Dose: 1 units Lactobacillus Acidophilus (Advanced Probiotic 1250 Mg Capsule) 2 cap PO BID [facility] Stop: 09/05/22 21:52 Last Admin: 08/07/22 09:23 Dose: Not Given Latanoprost (Latanoprost 0.005% Op Soln 2.5 Ml Btl) 1 drops OPB HS [facility] Stop: 09/05/22 21:52 Last Admin: 08/06/22 23:02 Dose: 1 drops Levalbuterol HCl (Levalbuterol Hcl 1.25 Mg/3 Ml Neb) 1.25 mg INH Q4H PRN; Protocol PRN Reason: SOB/COUGH/WHEEZING Stop: 09/05/22 21:52 Magnesium Oxide (Magnesium Oxide 400 Mg Tab) 400 mg PO BID KARLA Stop: 09/05/22 21:52 Last Admin: 08/07/22 09:23 Dose: Not Given Metoprolol Succinate (Metoprolol Succ 25mg Ext Rel Tab) 75 mg PO DAILY [facility] Stop: 09/06/22 08:59 Last Admin: 08/07/22 09:23 Dose: Not Given Miscellaneous (Carbohydrates For Hypoglycemia ) 15 - 30 gm PO UD PRN PRN Reason: Hypoglycemia Protocol Stop: 09/05/22 21:52 Miscellaneous (Solifenacin [Vesicare]: Order Awaiting Action) 1 each N/A QS [facility] Stop: 09/06/22 07:59 Last Admin: 08/07/22 07:45 Dose: Not Given Montelukast Sodium (Montelukast Sodium 10 Mg Tablet) 10 mg PO HS [facility] Stop: 09/05/22 21:52 Last Admin: 08/06/22 23:02 Dose: 10 mg Multivitamins/Minerals (Cerovite Adv Formula Tab) 1 tab PO QDL [facility] Stop: 09/06/22 11:29 Ondansetron HCl (Ondansetron Inj 2 Mg/Ml 2 Ml Vial) 4 mg IV Q6H PRN PRN Reason: Nausea Stop: 09/05/22 21:52 Pantoprazole Sodium (Pantoprazole 40 Mg Tab) 40 mg PO DAILY KARLA Stop: 09/06/22 08:59 Last Admin: 08/07/22 09:23 Dose: Not Given Prednisone (Prednisone 5 Mg Tab) 5 mg PO QAM [facility] Stop: 09/06/22 08:59 Last Admin: 08/07/22 09:23 Dose: Not Given Raspberry (Raspberry Syrup 5 Ml Udp) 5 ml PO DAILY KARLA Stop: 08/17/22 08:59 Last Admin: 08/07/22 09:23 Dose: Not Given Rosuvastatin Calcium (Rosuvastatin Calcium 20 Mg Tab) 20 mg PO QAM [facility] Stop: 09/06/22 08:59 Last Admin: 08/07/22 09:24 Dose: Not Given Thiamine HCl (Thiamine Hcl 50 Mg Tablet) 50 mg PO DAILY [facility]LA Stop: 09/06/22 08:59 Last Admin: 08/07/22 09:24 Dose: Not Given Triamcinolone Acetonide (Triamcinolone Acet 0.1% Cr 15 Gm Tube) 1 appln TOP BID PRN PRN Reason: AFFECTED AREA Stop: 09/05/22 21:52 Vancomycin HCl (Vancomycin Hcl 125 Mg/2.5ml Soln) 125 mg PO DAILY [facility] Stop: 09/06/22 08:59 Last Admin: 08/07/22 09:24 Dose: Not Given Vitamin D (Cholecalciferol 1,000 Units 25 Mcg Tab) 2,000 units PO DAILY KARLA Stop: 09/06/22 08:59 Last Admin: 08/07/22 09:22 Dose: Not Given (1) Fall Encounter type: initial encounter Qualified Code(s): W19.XXXA - Unspecified fall, initial encounter
[2022-08-07] MEDS: FLUTICASONE/VILANTEROL 200/25MCG 14 PUFFS/INHALER INH SCH (10:47)
[2022-08-07] MEDS: cefTRIAXone SODIUM 1,000 MG in DEXTROSE 5% 50 ML IV SCH (10:47)
[2022-08-07] MEDS ORDERED: CEROVITE ADV FORMULA TAB PO SCH (11:30)
[2022-08-07] MEDS ORDERED: NON-FORMULARY MEDICATION (Multivit-Min-Iron-Fa-Lutein [Centrum Silver Women] 8 mg iron-400 PO SCH (11:30)
[2022-08-07] MEDS ORDERED: ACETAMINOPHEN 1,000 MG/100 ML VIAL IV STA (12:43)
[2022-08-07] MEDS ORDERED: LACTATED RINGER'S 500 ML IV ONE (17:30)
[2022-08-07 18:27] LABS: Hematocrit (blood only) 33.5 % (34.1-44.9); Hemoglobin 11.6 g/dl (12.0-16.0); Mean Corpuscular Hemoglobin 27.7 pg (25.0-34.0); Mean Corpuscular Hgb Conc 34.6 g/dL (32.0-36.0); Mean Platelet Volume 8.2 fL (9.4-12.3); Platelet Count 222 K/uL (130-400); RDW Coefficient of Variation 17.2 % (11.5-14.5); RDW Standard Deviation 49.7 fL (36.4-46.3); Red Blood Count 4.19 M/uL (3.93-5.22); White Blood Count 9.87 K/ul (4.8-10.8)
[2022-08-07 18:42] LABS: Base Excess ABG 1.4 mEq/L (-9-1.8); HCO3 ABG 25 mmol/L (19-24); PCO2 ABG 35 mmHg (35-46); PO2 ABG 78 mmHg (80-95); pH ABG 7.46 (7.35-7.45)
[2022-08-07 18:47] LABS: Allen Test Pos (Pos)
[2022-08-07 18:50] LABS: Albumin Globulin Ratio 0.9 (0.9-2); Bilirubin,Total 0.6 mg/dl (0.2-1.0); Calcium 9.4 mg/dl (8.5-10.1); Creatinine Clr Calc Pharmacy 38.3 ml/min; Est GFR (African American) 64.3 ml/min; Est GFR (Non-African American) 55.5 ml/min; Globulin 3.5 gm/dl (2.5-4.0); Magnesium 2.1 mg/dl (1.7-2.4); Phosphorus 3.8 mg/dl (2.5-4.9); Potassium 3.4 mmol/L (3.5-5.1); Total Protein 6.5 gm/dl (6.0-8.3)
[2022-08-07 18:54] LABS: Troponin I High Sensitivity 27.7 pg/ml (0-14)
--- NOTE | 2022-08-07 19:09 | XRay Report ---
SINGLE VIEW CHEST CLINICAL HISTORY: Change in mental status. Obtunded. FINDINGS: An AP, portable, semierect chest radiograph is compared to study dated 08/06/2022. The exam ination is degraded by portable technique and patient rotation. The cardiomediastinal silhouette is normal for projection. Chronic interstitial thickening similar to previous. There are low lung volume s with bibasilar scarring/atelectasis. No airspace consolidation or large pleural effusion is identif ied. No pneumothorax is seen. The skeletal structures are osteopenic. The bony thorax is grossly inta ct. A right shoulder arthroplasty is in place. Advanced arthritic change is noted in the left shoulde r. Cholecystectomy clips are seen in the right upper quadrant. IMPRESSION: Low lung volumes with no acute cardiopulmonary abnormality identified. ACT 112: Negative or not required by law. Electronically signed by: Brigido Gutierrez M.D. 08/07/2022 7:08 PM
[2022-08-07] MEDS: MONTELUKAST SODIUM 10 MG TABLET PO SCH (21:27)
[2022-08-07] MEDS: LATANOPROST 0.005% OP SOLN 2.5 ML BTL OPB SCH (21:30)
[2022-08-08] MEDS: ACETAMINOPHEN 1,000 MG/100 ML VIAL IV PRN ×2 (04:41→19:28)
[2022-08-08] MEDS: HEPARIN SOD 5,000 UNIT/0.5 ML VIAL SQ SCH ×3 (05:29→21:06)
[2022-08-08 07:33] LABS: Estimated Average Glucose 154 mg/dl
--- NOTE | 2022-08-08 07:38 | CT Scan Report ---
CT SCAN OF THE BRAIN WITHOUT IV CONTRAST CLINICAL HISTORY: Fall. Change in mental status. COMPARISON STUDY: CT of the brain dated 08/06/2022 TECHNIQUE: Unenhanced axial CT scan of the brain is performed from the vertex to the skull base. A do se lowering technique was utilized adhering to the principles of ALARA. CT DOSE: 614.27 mGy.cm FINDINGS: Brain parenchyma: There is age-related involutional change noting moderate subcortical and periventri cular microangiopathic disease. There is no hemorrhage, mass effect, or evidence of acute territorial ischemia by CT criteria. Lai-white matter differentiation is preserved. No extra-axial fluid collec tion is seen. Ventricles, sulci, cisterns: Prominent secondary to involutional change. Intracranial vasculature: There is atherosclerotic calcification of the cavernous carotid and vertebr al arteries. Calvarium: The skeletal structures are osteopenic. No depressed calvarial fracture is identified. Sinuses and mastoids: The visualized paranasal sinuses are clear. The mastoid air cells are well pneu matized. Orbits: The bony orbits are grossly intact. There are bilateral ocular lens implants. IMPRESSION: There is no hemorrhage, mass effect, or evidence of acute territorial ischemia by CT crit ercaren. No change from yesterday. ACT 112: Negative or not required by law. Electronically signed by: Brigido Gutierrez M.D. 08/08/2022 7:35 AM
[2022-08-08 07:40] LABS: Hematocrit (blood only) 33.4 % (34.1-44.9); Hemoglobin 11.5 g/dl (12.0-16.0); Mean Corpuscular Hemoglobin 27.8 pg (25.0-34.0); Mean Corpuscular Hgb Conc 34.4 g/dL (32.0-36.0); Mean Corpuscular Volume 80.7 fL (80.0-100.0); Mean Platelet Volume 8.2 fL (9.4-12.3); Platelet Count 215 K/uL (130-400); RDW Coefficient of Variation 17.3 % (11.5-14.5); RDW Standard Deviation 50.4 fL (36.4-46.3); Red Blood Count 4.14 M/uL (3.93-5.22); White Blood Count 8.33 K/ul (4.8-10.8)
[2022-08-08 08:00] LABS: BUN Creatinine Ratio 17.3 (10-20); Calcium 9.4 mg/dl (8.5-10.1); Creatinine Clr Calc Pharmacy 36.8 ml/min; Est GFR (African American) 61.3 ml/min; Est GFR (Non-African American) 52.9 ml/min; Potassium 3.6 mmol/L (3.5-5.1)
[2022-08-08] MEDS: FLUTICASONE/VILANTEROL 200/25MCG 14 PUFFS/INHALER INH SCH (08:58)
[2022-08-08] MEDS: cefTRIAXone SODIUM 1,000 MG in DEXTROSE 5% 50 ML IV SCH (08:58)
[2022-08-08] MEDS: ROSUVASTATIN CALCIUM 20 MG TAB PO SCH (08:58)
[2022-08-08] MEDS: CYANOCOBALAMIN (B-12) 500 MCG TABLET PO SCH (08:58)
[2022-08-08] MEDS: predniSONE 5 MG TAB PO SCH (08:58)
[2022-08-08] MEDS: amLODIPine BESYLATE 5 MG TAB PO SCH (08:58)
[2022-08-08] MEDS: PANTOprazole 40 MG TAB PO SCH (08:58)
[2022-08-08] MEDS: MAGNESIUM OXIDE 400 MG TAB PO SCH ×2 (08:58→21:07)
[2022-08-08] MEDS: CLOPIDOGREL BISULFATE 75 MG TAB PO SCH (08:58)
[2022-08-08] MEDS: METOPROLOL SUCC 25MG EXT REL TAB PO SCH (08:58)
[2022-08-08] MEDS: ADVANCED PROBIOTIC 1250 MG CAPSULE PO SCH ×2 (08:58→21:03)
[2022-08-08] MEDS: DULoxetine HCL 60 MG CAP PO SCH (08:59)
--- NOTE | 2022-08-08 09:07 | Electrocardiogram Report ---
Test Reason : Blood Pressure : / mmHG Vent. Rate : 114 BPM Atrial Rate : 114 BPM P-R Int : 208 ms QRS Dur : 132 ms QT Int : 350 ms P-R-T Axes : -29 018 -33 degrees QTc Int : 482 ms Sinus tachycardia with Premature supraventricular complexes Right bundle branch block Abnormal ECG When compared with ECG of 07-AUG-2022 00:39, Premature ventricular complexes are no longer Present Confirmed by Speedy Candelario ([id number]) on 08/08/2022 9:07:33 AM Referred By: REFERRED SELF Confirmed By:Speedy Candelario
[2022-08-08] MEDS: VANCOMYCIN HCL 125 MG/2.5ML SOLN PO SCH (09:58)
[2022-08-08] MEDS: RASPBERRY SYRUP 5 ML UDP PO SCH (09:58)
--- NOTE | 2022-08-08 10:23 | Hospitalist Progress Note ---
Date of Service August 08, 2022 Assessment & Plan (1) Sepsis: Plan: sepsis ruled out. Lactate was normal and HR improved with reinstituting her home Toprol. No leukocytosis. (2) Acute metabolic encephalopathy: Plan: 2/2 UTI, likely ongoing for last couple of weeks. Cont antibiotics for infection. She is more sleepy this morning--unsure if that is because she was up last night or maybe as a result of the Tylenol. Will let her sleep for a couple of hours and reassess her. Notably, the CXR and CT head from overnight were clear of any acute issues. (3) UTI (urinary tract infection): Plan: Klebsiella oxytoca in urine with slight improvement since starting the Rocephin yesterday. Cont abx and avoid combs if possible. Blood cultures are clear. Sepsis ruled out but still fevering this morning and fatigued. (4) Hyponatremia: Plan: Improved to 130 today. She ate some breakfast but with fever this am and waxing /waning mental status, will cont IVF at low rate to avoid dehydration. No fluid restriction at this time. (5) Fall: Plan: Progressive weakness likely related to active infection in setting of prior h/o stroke with known residual deficits. Fatigue is prohibiting evaluation of this right now. (6) Wrist injury: Plan: L triquetrum fracture. Orthopedics is consulted. Splint in place and she appea rs to have pain well managed. I am holding on giving continuous acetaminophen given the level of somnolence. Would not give any narcotics or other pain meds at this time until mental status improves. She doesn't appear to have pain in the wrist, but if her mental status doesn't improve, will consider scheduling some pain meds. Cont splint and ice to area TID to combat swelling over the next few days. (7) Generalized weakness: Plan: PT/OT (8) Recurrent Clostridioides difficile infection: Plan: Seen by ID on 07/18/22. Has had 3 recurrences of c difficile diarrhea. Chronically on vancomycin once daily for suppression which has been keeping her BMs to 1-2 formed stools daily. She continues on this now and will not stop it until she is off the current antibiotics. Today she is altered with waxing/waning mental status making administration tricky. Cont vanc PO once daily. (9) DM type 2 (diabetes mellitus, type 2): Plan: She has a slightly elevated A1C of 7.0, likely related to ongoing prednisone use. Not taking any blood glucose lowering medications at home. Current inpatient glucose is at goal. She has not required much insulin coverage this admission. To minimize delirium and pain, will check glucose but hold on any insulin coverage at this time. If her blood glucose is consistently >200 on random checks or consistently >125 fasting, will consider additional treatment to lower the blood glucose. (10) History of stroke: Plan: chronic, cont medical management. (11) CKD (chronic kidney disease), stage III: Plan: chronic, stable. Cont monitoring and renally dose meds as needed. (12) HTN (hypertension): Plan: chronic, at goal. Cont current management (13) Depression: Plan: chronic, stable. Cont duloxetine per home regimen. (14) DVT prophylaxis: Plan: heparin Full Code Dispo-cont telemetry Belkis Seymour DO [facility] Hospitalist Admission and Anticipated Discharge Date Admission Date: August 06, 2022 Subjective 76 yo F presented to the hospital with AMS, workup reveals a UTI. at bedside today states that she has been having progressively higher fevers over two weeks along with progressive weakness and confusion. Today Belem is able to wake up to voice but is very sleepy Appears more oriented and reports that she feels better but cannot give much history outside of that because she falls asleep. It is unclear how much sleep she got last night. She was febrile this morning, and defervesced after tylenol, which may be contributing to her fatigue Her heart rate was up into the 140s this morning at the time she was febrile She also was not able to take her Metoprolol succinate 75mg yesterday because of being an aspiration risk. After taking in morning meds including metoprolol, vancomycin and breakfast her heart rate is now in the 80s consistently. Glucose is around goal Review of Systems Review of Systems: ROS was reviewed but was limited because of sleepiness. Physical Exam Physical Exam: CONSTITUTIONAL: WNWD, vitals as above,NAD and generally appears better but still very fatigued. EYES: pupils are round and equal bilaterally, normal conjunctivae, no scleral icterus ENT: external ear and nose normal, oropharynx clear, edentulous and mouth breathing when falls asleep. NECK: trachea midline, RESPIRATORY: clear to auscultation bilaterally, no crackles, rales or wheezes, poor respiratory effort when prompted but no over tachypnea noted. CARDIOVASCULAR: reg rate and regular rhythm, 3/6 KENJI heard at LSB, no JVD, no peripheral edema CHEST: inspection of chest was normal GASTROINTESTINAL: soft, nontender, Nd, no guarding MUSCULOSKELETAL: strength 5/5 throughout with right leg and arm weaker generally than the left. Head is normocephalic and atraumatic SKIN: warm and dry NEUROLOGIC: CN 2-12 grossly intact, abnormal cognition in that she is lethargic, but will awaken to voice and has normal speech, oriented to person and time, PSYCHIATRIC: lethargic but able to awaken and answer questions appropriately, cooperative Results & Data Results & Data ([facility]) Vital Signs (Past 12 Hours) Vital Signs Temp Pulse Pulse Resp BP BP Pulse Ox 08/08/22 09:20 36.6 C 123 H 19 107/62 95 08/08/22 08:22 36.5 C 140 H 19 115/78 90 08/08/22 05:32 36.9 C 99 H 18 152/60 H 93 08/08/22 04:33 38.1 C H 82 18 168/75 H 93 08/07/22 22:26 97 H 08/07/22 23:00 36.7 C 107 H 20 154/93 H 94 08/07/22 23:11 O2 Del Method 08/08/22 09:20 Room Air 08/08/22 08:22 Room Air 08/08/22 05:32 Room Air 08/08/22 04:33 Room Air 08/07/22 22:26 08/07/22 23:00 Room Air 08/07/22 23:11 Room Air Laboratory Results Short CBC 08/07/22 08/08/22 Range/Units 17:51 07:20 WBC 9.87 8.33 (4.8-10.8) K/ul Hgb 11.6 L 11.5 L (12.0-16.0) g/dl Hct 33.5 L 33.4 L (34.1-44.9) % Plt Count 222 215 (130-400) K/uL BMP 08/07/22 08/08/22 17:51 07:20 Sodium 129 L 130 L Potassium 3.4 L 3.6 Chloride 94 L 94 L Carbon Dioxide 24 23 BUN 18 18 Creatinine 1.00 1.04 Glucose 160 H 157 H Calcium 9.4 9.4 Liver Function 08/07/22 Range/Units 17:51 Total Bilirubin 0.6 (0.2-1.0) mg/dl AST 26 (13-39) U/L ALT 15 (7-52) U/L Alkaline Phosphatase 68 (34-104) U/L Albumin 3.0 L (3.4-5.0) gm/dl Diagnostic Findings Head CT 08/07/22 17:31 CT SCAN OF THE BRAIN WITHOUT IV CONTRAST CLINICAL HISTORY: Fall. Change in mental status. COMPARISON STUDY: CT of the brain dated 08/06/2022 TECHNIQUE: Unenhanced axial CT scan of the brain is performed from the vertex to the skull base. A dose lowering technique was utilized adhering to the principles of ALARA. CT DOSE: 614.27 mGy.cm FINDINGS: Brain parenchyma: There is age-related involutional change noting moderate subcortical and periventricular microangiopathic disease. There is no hemorrhage, mass effect, or evidence of acute territorial ischemia by CT criteria. Lai-white matter differentiation is preserved. No extra-axial fluid collection is seen. Ventricles, sulci, cisterns: Prominent secondary to involutional change. Intracranial vasculature: There is atherosclerotic calcification of the cavernous carotid and vertebral arteries. Calvarium: The skeletal structures are osteopenic. No depressed calvarial fracture is identified. Sinuses and mastoids: The visualized paranasal sinuses are clear. The mastoid air cells are well pneumatized. Orbits: The bony orbits are grossly intact. There are bilateral ocular lens implants. IMPRESSION: There is no hemorrhage, mass effect, or evidence of acute territorial ischemia by CT criteria. No change from yesterday. ACT 112: Negative or not required by law. Electronically signed by: Brigido Gutierrez M.D. 08/08/2022 7:35 AM Medications Administered Current Inpatient Medications Albuterol (Albuterol Hfa 8 Gm Inhaler) 2 puffs INH Q4 PRN PRN Reason: Shortness Of Breath Stop: 09/05/22 21:52 Amlodipine Besylate (Amlodipine Besylate 5 Mg Tab) 10 mg PO DAILY [facility] Stop: 09/06/22 08:59 Last Admin: 08/08/22 08:58 Dose: 10 mg Betamethasone Dipropion Augmented (Betamethasone Dip Aug (Diprolene) 0.05% Cr 15 Gm Tube) 1 appln EXT BID PRN PRN Reason: AFFECTED AREA Stop: 09/05/22 22:10 Calamine/Phenol (Menthol-Zinc Oxide 360 Appln/120 Gm Tube) 1 appln EXT BID PRN PRN Reason: AFFECTED AREA Stop: 09/05/22 21:52 Clopidogrel Bisulfate (Clopidogrel Bisulfate 75 Mg Tab) 75 mg PO QAM [facility] Stop: 09/06/22 08:59 Last Admin: 08/08/22 08:58 Dose: 75 mg Cyanocobalamin (Cyanocobalamin (B-12) 500 Mcg Tablet) 2,000 mcg PO MoWeFr@0900 [facility] Stop: 09/07/22 08:59 Last Admin: 08/08/22 08:58 Dose: 2,000 mcg Dextrose (Dextrose 50% 50 Ml Syringe) 25 - 50 ml IV UD PRN; Protocol PRN Reason: Hypoglycemia Protocol Stop: 09/05/22 21:52 Duloxetine HCl (Duloxetine Hcl 60 Mg Cap) 60 mg PO DAILY [facility] Stop: 09/06/22 08:59 Last Admin: 08/08/22 08:59 Dose: 60 mg Ferrous Sulfate (Ferrous Sulfate 325 Mg Tab) 325 mg PO DAILY [facility]LA Stop: 09/06/22 08:59 Last Admin: 08/07/22 09:22 Dose: Not Given Fluticasone/Vilanterol (Fluticasone/Vilanterol 200/25mcg 14 Puffs/Inhaler) 1 puffs INH DAILY [facility] Stop: 09/06/22 08:59 Last Admin: 08/08/22 08:58 Dose: 1 puffs Folic Acid (Folic Acid 1 Mg Tab) 1 mg PO QAM [facility] Stop: 09/06/22 08:59 Last Admin: 08/07/22 09:22 Dose: Not Given Glucagon (Glucagon For Inj 1 Mg Vial) 1 mg SQ UD PRN; Protocol PRN Reason: Hypoglycemia Protocol Stop: 09/05/22 21:52 Glucose (Glucose 40% Gel 15 Gm Tube) 15 - 30 gm PO UD PRN; Protocol PRN Reason: Hypoglycemia Protocol Stop: 09/05/22 21:52 Glucose (Glucose 10 Tab/Tube) 4 - 8 tab PO UD PRN; Protocol PRN Reason: Hypoglycemia Treatment Stop: 09/05/22 21:52 Heparin Sodium (Porcine) (Heparin Sod 5,000 Unit/0.5 Ml Vial) 5,000 units SQ Q8 [facility] Stop: 09/05/22 21:59 Last Admin: 08/08/22 05:29 Dose: 5,000 units Ceftriaxone Sodium 1,000 mg/ (Dextrose) 60 mls @ 100 mls/hr IV DAILY [facility]; Protocol Stop: 08/12/22 08:59 Last Infusion: 08/08/22 10:15 Dose: Infused Acetaminophen (Ofirmev) 1,000 mg in 100 mls @ 400 mls/hr IV Q8H PRN PRN Reason: pain/fever Stop: 08/10/22 19:59 Last Infusion: 08/08/22 05:05 Dose: Infused Lactobacillus Acidophilus (Advanced Probiotic 1250 Mg Capsule) 2 cap PO BID [facility] Stop: 09/05/22 21:52 Last Admin: 08/08/22 08:58 Dose: 2 cap Latanoprost (Latanoprost 0.005% Op Soln 2.5 Ml Btl) 1 drops OPB HS [facility] Stop: 09/05/22 21:52 Last Admin: 08/07/22 21:30 Dose: 1 drops Levalbuterol HCl (Levalbuterol Hcl 1.25 Mg/3 Ml Neb) 1.25 mg INH Q4H PRN; Protocol PRN Reason: SOB/COUGH/WHEEZING Stop: 09/05/22 21:52 Magnesium Oxide (Magnesium Oxide 400 Mg Tab) 400 mg PO BID [facility] Stop: 09/05/22 21:52 Last Admin: 08/08/22 08:58 Dose: 400 mg Metoprolol Succinate (Metoprolol Succ 25mg Ext Rel Tab) 75 mg PO DAILY [facility] Stop: 09/06/22 08:59 Last Admin: 08/08/22 08:58 Dose: 75 mg Miscellaneous (Carbohydrates For Hypoglycemia ) 15 - 30 gm PO UD PRN PRN Reason: Hypoglycemia Protocol Stop: 09/05/22 21:52 Miscellaneous (Solifenacin [Vesicare]: Order Awaiting Action) 1 each N/A QS [facility] Stop: 09/06/22 07:59 Last Admin: 08/07/22 07:45 Dose: Not Given Montelukast Sodium (Montelukast Sodium 10 Mg Tablet) 10 mg PO HS [facility] Stop: 09/05/22 21:52 Last Admin: 08/07/22 21:27 Dose: 10 mg Multivitamins/Minerals (Cerovite Adv Formula Tab) 1 tab PO QDL [facility] Stop: 09/06/22 11:29 Last Admin: 08/07/22 12:50 Dose: Not Given Ondansetron HCl (Ondansetron Inj 2 Mg/Ml 2 Ml Vial) 4 mg IV Q6H PRN PRN Reason: Nausea Stop: 09/05/22 21:52 Pantoprazole Sodium (Pantoprazole 40 Mg Tab) 40 mg PO DAILY [facility] Stop: 09/06/22 08:59 Last Admin: 08/08/22 08:58 Dose: 40 mg Prednisone (Prednisone 5 Mg Tab) 5 mg PO QAM [facility] Stop: 09/06/22 08:59 Last Admin: 08/08/22 08:58 Dose: 5 mg Raspberry (Raspberry Syrup 5 Ml Udp) 5 ml PO DAILY [facility] Stop: 08/17/22 08:59 Last Admin: 08/08/22 09:58 Dose: 5 ml Rosuvastatin Calcium (Rosuvastatin Calcium 20 Mg Tab) 20 mg PO QAM [facility] Stop: 09/06/22 08:59 Last Admin: 08/08/22 08:58 Dose: 20 mg Thiamine HCl (Thiamine Hcl 50 Mg Tablet) 50 mg PO DAILY [facility] Stop: 09/06/22 08:59 Last Admin: 08/07/22 09:24 Dose: Not Given Triamcinolone Acetonide (Triamcinolone Acet 0.1% Cr 15 Gm Tube) 1 appln TOP BID PRN PRN Reason: AFFECTED AREA Stop: 09/05/22 21:52 Vancomycin HCl (Vancomycin Hcl 125 Mg/2.5ml Soln) 125 mg PO DAILY [facility] Stop: 09/06/22 08:59 Last Admin: 08/08/22 09:58 Dose: 125 mg Vitamin D (Cholecalciferol 1,000 Units 25 Mcg Tab) 2,000 units PO DAILY [facility] Stop: 09/06/22 08:59 Last Admin: 08/07/22 09:22 Dose: Not Given (1) Fall Encounter type: initial encounter Qualified Code(s): W19.XXXA - Unspecified fall, initial encounter
[2022-08-08] MEDS: SODIUM CHLORIDE 0.9% 1000ML 1,000 ML IV SCH (11:04)
[2022-08-08] MEDS: LATANOPROST 0.005% OP SOLN 2.5 ML BTL OPB SCH (21:04)
[2022-08-08] MEDS: MONTELUKAST SODIUM 10 MG TABLET PO SCH (21:06)
[2022-08-09] MEDS: SODIUM CHLORIDE 0.9% 1000ML 1,000 ML IV SCH (03:37)
[2022-08-09] MEDS: HEPARIN SOD 5,000 UNIT/0.5 ML VIAL SQ SCH ×3 (05:22→21:36)
[2022-08-09 06:47] LABS: Hematocrit (blood only) 30.7 % (34.1-44.9); Hemoglobin 10.7 g/dl (12.0-16.0); Mean Corpuscular Hemoglobin 27.9 pg (25.0-34.0); Mean Corpuscular Hgb Conc 34.9 g/dL (32.0-36.0); Mean Corpuscular Volume 79.9 fL (80.0-100.0); Mean Platelet Volume 8.4 fL (9.4-12.3); Platelet Count 221 K/uL (130-400); RDW Coefficient of Variation 16.9 % (11.5-14.5); RDW Standard Deviation 49.1 fL (36.4-46.3); Red Blood Count 3.84 M/uL (3.93-5.22); White Blood Count 7.77 K/ul (4.8-10.8)
[2022-08-09 07:05] LABS: C Reactive Protein 23.25 mg/dl (0-0.5); Calcium 8.9 mg/dl (8.5-10.1); Creatinine Clr Calc Pharmacy 45.5 ml/min; Est GFR (African American) 78.2 ml/min; Est GFR (Non-African American) 67.5 ml/min; Magnesium 1.8 mg/dl (1.7-2.4); Phosphorus 2.6 mg/dl (2.5-4.9); Potassium 3.6 mmol/L (3.5-5.1)
[2022-08-09] MEDS: amLODIPine BESYLATE 5 MG TAB PO SCH (08:20)
[2022-08-09] MEDS: ADVANCED PROBIOTIC 1250 MG CAPSULE PO SCH ×2 (08:21→20:22)
[2022-08-09] MEDS: ROSUVASTATIN CALCIUM 20 MG TAB PO SCH (08:21)
[2022-08-09] MEDS: MAGNESIUM OXIDE 400 MG TAB PO SCH ×2 (08:21→20:22)
[2022-08-09] MEDS: DULoxetine HCL 60 MG CAP PO SCH (08:21)
[2022-08-09] MEDS: PANTOprazole 40 MG TAB PO SCH (08:21)
[2022-08-09] MEDS: cefTRIAXone SODIUM 1,000 MG in DEXTROSE 5% 50 ML IV SCH (08:21)
[2022-08-09] MEDS: METOPROLOL SUCC 25MG EXT REL TAB PO SCH (08:21)
[2022-08-09] MEDS: CLOPIDOGREL BISULFATE 75 MG TAB PO SCH (08:21)
[2022-08-09] MEDS: predniSONE 5 MG TAB PO SCH (08:22)
[2022-08-09] MEDS: RASPBERRY SYRUP 5 ML UDP PO SCH (08:22)
[2022-08-09] MEDS: FLUTICASONE/VILANTEROL 200/25MCG 14 PUFFS/INHALER INH SCH (08:22)
[2022-08-09] MEDS: VANCOMYCIN HCL 125 MG/2.5ML SOLN PO SCH (08:22)
[2022-08-09] MEDS: ACETAMINOPHEN 1,000 MG/100 ML VIAL IV PRN ×2 (09:48→21:25)
--- NOTE | 2022-08-09 09:53 | Hospitalist Progress Note ---
Date of Service August 09, 2022 Assessment & Plan (1) Fever: Plan: Uncertain etiology. check repeat CXR for any developing pneumonia. This shows some atelectasis on the right middle lobe. As she has been spiking fevers, will extend coverage of her antibiotic regimen to include azithromycin. Checking LE dopplers to rule out DVT-these were negative. She has no overt skin breakdown per primary RN. She reports feeling well but still with urinary symptoms. Will repeat check on her urine after several days of antibiotics and ensure this is clear. (2) Acute metabolic encephalopathy: Plan: 2/2 UTI, likely ongoing for last couple of weeks. also offers that she gets intermittently confused on a regular basis at home. Cont antibiotics for infection. She is confused this morning again but is more alert and talkative. (3) UTI (urinary tract infection): Plan: Klebsiella oxytoca in urine with slight improvement since starting the Rocephin yesterday. Cont abx and avoid combs if possible. Blood cultures are clear. Repeat temp again this morning with worsening BP and rising HR with the elevation in temp overnight. No leukocytosis. Repeating urine to ensure resolution of the infection. (4) Hyponatremia: Plan: Improved to 130 today. Eating and drinking. No fluid restriction at this time. (5) Fall: Plan: Progressive weakness likely related to active infection in setting of prior h/o stroke with known residual deficits. PT/OT (6) Wrist injury: Plan: L triquetrum fracture. Orthopedics is consulted. Splint in place and she appears to have pain well managed. I am holding on giving continuous acetaminophen given the level of somnolence. Would not give any narcotics or other pain meds at this time until mental status improves. She doesn't appear to have pain in the wrist, but if her mental status doesn't improve, will consider scheduling some pain meds. Cont splint and ice to area TID to combat swelling over the next few days. (7) Generalized weakness: Plan: PT/OT (8) Recurrent Clostridioides difficile infection: Plan: Seen by ID on 07/18/22. Has had 3 recurrences of c difficile diarrhea. Chronically on vancomycin once daily for suppression which has been keeping her BMs to 1-2 formed stools daily. She continues on this now and will not stop it until she is off the current antibiotics. Cont vanc PO once daily. No diarrhea in last 24 hours. (9) DM type 2 (diabetes mellitus, type 2): Plan: She has a slightly elevated A1C of 7.0, likely related to ongoing prednisone use. Not taking any blood glucose lowering medications at home. Current inpatient glucose not at goal. Will start with some basal bolus insulin at this time with consistently elevated fasting glucose in the morning. (10) History of stroke: Plan: chronic, cont medical management. (11) CKD (chronic kidney disease), stage III: Plan: chronic, stable. Cont monitoring and renally dose meds as needed. (12) HTN (hypertension): Plan: chronic, currently elevated this morning and overnight likely related to her not feeling well; evidenced by fever and tachycardia. Continuing to search for a source for the fever per plan above. For now, no changes in BP meds. Reassessment later showed that this had improved. (13) Depression: Plan: chronic, stable. Cont duloxetine per home regimen. (14) DVT prophylaxis: Plan: heparin Full Code Dispo-cont telemetry Belkis Seymour DO [facility] Hospitalist Admission and Anticipated Discharge Date Admission Date: August 06, 2022 Subjective 76 yo F presented to the hospital with AMS, workup reveals a UTI. at bedside today states that she has been having progressively higher fevers over two weeks along with progressive weakness and confusion. Today Belem appears more alert and in no distress She is speaking with me without any issues but is clearly confused telling me [place] She is able to follow instructions Overnight she spike another fever and again this morning with temp 38.5 Elevated HR overnight likely a result of temp She denies any cough of SOB She reports persistent urinary urgency and increased frequency She denies any pain in her legs She has no increased WBC on labwork this morning.' Primary RN doesn't notice any uncontrolled pain in her wrist and patient denies this is an issue. Review of Systems Review of Systems: All systems were reviewed and negative except as indicated in subjective above. Physical Exam Physical Exam: CONSTITUTIONAL: WNWD, vitals as above, NAD EYES: normal conjunctivae, no scleral icterus ENT: external ear and nose normal, oropharynx clear, edentulous and mouth breathing when falls asleep. NECK: trachea midline, RESPIRATORY: coarse crackles heard on right mid lung.no rales or wheezes, normal respiratory effort CARDIOVASCULAR: tachy rate and regular rhythm, 3/6 KENJI heard at LSB, no JVD, no peripheral edema CHEST: inspection of chest was normal GASTROINTESTINAL: soft, nontender, Nd, no guarding MUSCULOSKELETAL: strength 5/5 throughout with right leg and arm weaker generally than the left. Head is normocephalic and atraumatic SKIN: warm and dry NEUROLOGIC: CN 2-12 grossly intact, alert and no gross focal deficits. PSYCHIATRIC: alert, cooperative. Oriented to self only. Results & Data Results & Data ([facility]) Vital Signs (Past 12 Hours) Vital Signs Temp Pulse Pulse Resp BP BP Pulse Ox 08/09/22 09:38 38.5 C H 104 H 16 171/71 H 94 08/09/22 07:54 37.7 C H 126 H 19 160/72 H 93 08/09/22 07:43 112 H 08/09/22 04:12 37 C 108 H 18 129/57 L 95 08/09/22 03:03 37.1 C 95 H 20 165/75 H 93 08/08/22 22:40 89 08/08/22 23:23 36.7 C 72 20 148/71 H 93 08/08/22 22:23 O2 Del Method 08/09/22 09:38 Room Air 08/09/22 07:54 Room Air 08/09/22 07:43 08/09/22 04:12 Room Air 08/09/22 03:03 Room Air 08/08/22 22:40 08/08/22 23:23 Room Air 08/08/22 22:23 Room Air Laboratory Results Short CBC 08/09/22 Range/Units 06:22 WBC 7.77 (4.8-10.8) K/ul Hgb 10.7 L (12.0-16.0) g/dl Hct 30.7 L (34.1-44.9) % Plt Count 221 (130-400) K/uL BMP 08/09/22 06:22 Sodium 130 L Potassium 3.6 Chloride 95 L Carbon Dioxide 25 BUN 17 Creatinine 0.85 Glucose 162 H Calcium 8.9 Cardiac Enzymes 08/09/22 Range/Units 06:22 Total Creatine Kinase 34 (26-192) U/L Medications Administered Current Inpatient Medications Albuterol (Albuterol Hfa 8 Gm Inhaler) 2 puffs INH Q4 PRN PRN Reason: Shortness Of Breath Stop: 09/05/22 21:52 Amlodipine Besylate (Amlodipine Besylate 5 Mg Tab) 10 mg PO DAILY [facility] Stop: 09/06/22 08:59 Last Admin: 08/09/22 08:20 Dose: 10 mg Betamethasone Dipropion Augmented (Betamethasone Dip Aug (Diprolene) 0.05% Cr 15 Gm Tube) 1 appln EXT BID PRN PRN Reason: AFFECTED AREA Stop: 09/05/22 22:10 Calamine/Phenol (Menthol-Zinc Oxide 360 Appln/120 Gm Tube) 1 appln EXT BID PRN PRN Reason: AFFECTED AREA Stop: 09/05/22 21:52 Clopidogrel Bisulfate (Clopidogrel Bisulfate 75 Mg Tab) 75 mg PO QAM [facility] Stop: 09/06/22 08:59 Last Admin: 08/09/22 08:21 Dose: 75 mg Cyanocobalamin (Cyanocobalamin (B-12) 500 Mcg Tablet) 2,000 mcg PO MoWeFr@0900 [facility] Stop: 09/07/22 08:59 Last Admin: 08/08/22 08:58 Dose: 2,000 mcg Dextrose (Dextrose 50% 50 Ml Syringe) 25 - 50 ml IV UD PRN; Protocol PRN Reason: Hypoglycemia Protocol Stop: 09/05/22 21:52 Duloxetine HCl (Duloxetine Hcl 60 Mg Cap) 60 mg PO DAILY [facility] Stop: 09/06/22 08:59 Last Admin: 08/09/22 08:21 Dose: 60 mg Ferrous Sulfate (Ferrous Sulfate 325 Mg Tab) 325 mg PO DAILY [facility] Stop: 09/06/22 08:59 Last Admin: 08/07/22 09:22 Dose: Not Given Fluticasone/Vilanterol (Fluticasone/Vilanterol 200/25mcg 14 Puffs/Inhaler) 1 puffs INH DAILY [facility] Stop: 09/06/22 08:59 Last Admin: 08/09/22 08:22 Dose: 1 puffs Folic Acid (Folic Acid 1 Mg Tab) 1 mg PO QAM [facility] Stop: 09/06/22 08:59 Last Admin: 08/07/22 09:22 Dose: Not Given Glucagon (Glucagon For Inj 1 Mg Vial) 1 mg SQ UD PRN; Protocol PRN Reason: Hypoglycemia Protocol Stop: 09/05/22 21:52 Glucose (Glucose 40% Gel 15 Gm Tube) 15 - 30 gm PO UD PRN; Protocol PRN Reason: Hypoglycemia Protocol Stop: 09/05/22 21:52 Glucose (Glucose 10 Tab/Tube) 4 - 8 tab PO UD PRN; Protocol PRN Reason: Hypoglycemia Treatment Stop: 09/05/22 21:52 Heparin Sodium (Porcine) (Heparin Sod 5,000 Unit/0.5 Ml Vial) 5,000 units SQ Q8 [facility] Stop: 09/05/22 21:59 Last Admin: 08/09/22 05:22 Dose: 5,000 units Ceftriaxone Sodium 1,000 mg/ (Dextrose) 60 mls @ 100 mls/hr IV DAILY [facility]; Protocol Stop: 08/12/22 08:59 Last Admin: 08/09/22 08:21 Dose: 100 mls/hr Acetaminophen (Ofirmev) 1,000 mg in 100 mls @ 400 mls/hr IV Q8H PRN PRN Reason: pain/fever Stop: 08/10/22 19:59 Last Admin: 08/09/22 09:48 Dose: 400 mls/hr Lactobacillus Acidophilus (Advanced Probiotic 1250 Mg Capsule) 2 cap PO BID [facility] Stop: 09/05/22 21:52 Last Admin: 08/09/22 08:21 Dose: 2 cap Latanoprost (Latanoprost 0.005% Op Soln 2.5 Ml Btl) 1 drops OPB HS [facility] Stop: 09/05/22 21:52 Last Admin: 08/08/22 21:04 Dose: 1 drops Levalbuterol HCl (Levalbuterol Hcl 1.25 Mg/3 Ml Neb) 1.25 mg INH Q4H PRN; Protocol PRN Reason: SOB/COUGH/WHEEZING Stop: 09/05/22 21:52 Magnesium Oxide (Magnesium Oxide 400 Mg Tab) 400 mg PO BID [facility] Stop: 09/05/22 21:52 Last Admin: 08/09/22 08:21 Dose: 400 mg Metoprolol Succinate (Metoprolol Succ 25mg Ext Rel Tab) 75 mg PO DAILY [facility] Stop: 09/06/22 08:59 Last Admin: 08/09/22 08:21 Dose: 75 mg Miscellaneous (Carbohydrates For Hypoglycemia ) 15 - 30 gm PO UD PRN PRN Reason: Hypoglycemia Protocol Stop: 09/05/22 21:52 Miscellaneous (Solifenacin [Vesicare]: Order Awaiting Action) 1 each N/A QS [facility] Stop: 09/06/22 07:59 Last Admin: 08/07/22 07:45 Dose: Not Given Montelukast Sodium (Montelukast Sodium 10 Mg Tablet) 10 mg PO HS [facility] Stop: 09/05/22 21:52 Last Admin: 08/08/22 21:06 Dose: 10 mg Multivitamins/Minerals (Cerovite Adv Formula Tab) 1 tab PO QDL [facility] Stop: 09/06/22 11:29 Last Admin: 08/07/22 12:50 Dose: Not Given Ondansetron HCl (Ondansetron Inj 2 Mg/Ml 2 Ml Vial) 4 mg IV Q6H PRN PRN Reason: Nausea Stop: 09/05/22 21:52 Pantoprazole Sodium (Pantoprazole 40 Mg Tab) 40 mg PO DAILY [facility] Stop: 09/06/22 08:59 Last Admin: 08/09/22 08:21 Dose: 40 mg Prednisone (Prednisone 5 Mg Tab) 5 mg PO QAM [facility] Stop: 09/06/22 08:59 Last Admin: 08/09/22 08:22 Dose: 5 mg Raspberry (Raspberry Syrup 5 Ml Udp) 5 ml PO DAILY [facility] Stop: 08/17/22 08:59 Last Admin: 08/09/22 08:22 Dose: 5 ml Rosuvastatin Calcium (Rosuvastatin Calcium 20 Mg Tab) 20 mg PO QAM [facility] Stop: 09/06/22 08:59 Last Admin: 08/09/22 08:21 Dose: 20 mg Thiamine HCl (Thiamine Hcl 50 Mg Tablet) 50 mg PO DAILY [facility] Stop: 09/06/22 08:59 Last Admin: 08/07/22 09:24 Dose: Not Given Triamcinolone Acetonide (Triamcinolone Acet 0.1% Cr 15 Gm Tube) 1 appln TOP BID PRN PRN Reason: AFFECTED AREA Stop: 09/05/22 21:52 Vancomycin HCl (Vancomycin Hcl 125 Mg/2.5ml Soln) 125 mg PO DAILY [facility] Stop: 09/06/22 08:59 Last Admin: 08/09/22 08:22 Dose: 125 mg Vitamin D (Cholecalciferol 1,000 Units 25 Mcg Tab) 2,000 units PO DAILY [facility] Stop: 09/06/22 08:59 Last Admin: 08/07/22 09:22 Dose: Not Given (1) Fall Encounter type: initial encounter Qualified Code(s): W19.XXXA - Unspecified fall, initial encounter
--- NOTE | 2022-08-09 10:54 | XRay Report ---
TWO VIEW CHEST CLINICAL HISTORY: Fever. FINDINGS: AP upright and lateral chest radiographs are compared to study dated 08/07/2022. The AP vie w is degraded by patient rotation. The cardiomediastinal silhouette is top normal for projection. Ch ronic interstitial thickening similar to previous. There are low lung volumes with bibasilar scarring /atelectasis. A large anterior opacity on the lateral projection is suspicious right middle lobe atel ectasis. No large pleural effusion is seen. There is no pneumothorax. The skeletal structures are ost eopenic. The bony thorax is grossly intact. A right shoulder arthroplasty is in place. Advanced arthr itic change is noted in the left shoulder. Degenerative change and hyperkyphosis is seen in the thora cic spine. Cholecystectomy clips are seen in the right upper quadrant. IMPRESSION: Low lung volumes with probable atelectasis of the right middle lobe. ACT 112: Negative or not required by law. Electronically signed by: Brigido Gutierrez M.D. 08/09/2022 10:51 AM
--- NOTE | 2022-08-09 11:00 | Ultrasound Report ---
ULTRASOUND BILATERAL LOWER EXTREMITY VENOUS CLINICAL HISTORY: Fever. COMPARISON STUDY: Bilateral lower extremity venous ultrasound dated 03/31/2022 TECHNIQUE: Real-time, grayscale, and color Doppler sonography of the deep veins of the right and left lower extremity was performed from the inguinal crease to the calf. Compression and augmentation wer e utilized. FINDINGS: There is no sonographic evidence of deep venous thrombosis identified in the right or left lower extremity. The common femoral, superficial femoral, and popliteal veins are patent and normally compressible bilaterally. The greater saphenous vein and the profunda femoris vein at the junction w ith the common femoral vein are clear in both legs. The visualized calf veins are patent bilaterally. IMPRESSION: There is no sonographic evidence of deep venous thrombosis identified in the right or lef t lower extremity. ACT 112: Negative or not required by law. Electronically signed by: Brigido Gutierrez M.D. 08/09/2022 10:59 AM
[2022-08-09 13:28] LABS: Appearance Urine Clear (Clear); Bilirubin Urine Negative (Negative); Blood Urine Negative (Negative); Color Urine Yellow; Glucose Urine UA Negative (Negative); Ketones Urine Trace (Negative); Leukocyte Esterase Urine Negative (Negative); Nitrite Urine Negative (Negative); Protein Urine 1+ (Negative); RBC Urine Automated 0-4 /hpf (0-4); Specific Gravity Urine 1.022 (1.000-1.030); Urobilinogen Urine Negative (Negative)
[2022-08-09 13:46] LABS: Bacteria Urine Automated 1+ (Negative); Epithelial Cell Urine Auto 0-5 /lpf (0-5)
[2022-08-09] MEDS ORDERED: GLUCOSE 10 TAB/TUBE PO PRN (14:03)
[2022-08-09] MEDS ORDERED: GLUCAGON FOR INJ 1 MG VIAL SQ PRN (14:03)
[2022-08-09] MEDS ORDERED: DEXTROSE 50% 50 ML SYRINGE IV PRN (14:03)
[2022-08-09] MEDS ORDERED: GLUCOSE 40% GEL 15 GM TUBE PO PRN (14:03)
[2022-08-09] MEDS ORDERED: CARBOHYDRATES FOR HYPOGLYCEMIA PO PRN (14:03)
[2022-08-09] MEDS: INSULIN ASPART PER UNIT SC SCH ×3 (14:52→21:25)
[2022-08-09] MEDS: AZITHROMYCIN 500 MG in DEXTROSE 5% 250 ML IV SCH (14:55)
[2022-08-09] MEDS: LATANOPROST 0.005% OP SOLN 2.5 ML BTL OPB SCH (20:22)
[2022-08-09] MEDS: MONTELUKAST SODIUM 10 MG TABLET PO SCH (20:23)
[2022-08-09] MEDS: LANTUS PER UNIT CHARGE SQ SCH (21:25)
[2022-08-10] MEDS: HEPARIN SOD 5,000 UNIT/0.5 ML VIAL SQ SCH ×3 (05:48→22:17)
--- NOTE | 2022-08-10 07:09 | Electrocardiogram Report ---
Test Reason : Blood Pressure : / mmHG Vent. Rate : 082 BPM Atrial Rate : 082 BPM P-R Int : 138 ms QRS Dur : 122 ms QT Int : 398 ms P-R-T Axes : 000 049 -19 degrees QTc Int : 464 ms Sinus rhythm with Premature atrial complexes Right bundle branch block T wave abnormality, consider inferior ischemia Abnormal ECG When compared with ECG of 07-AUG-2022 13:36, Criteria for Inferior infarct are no longer Present Confirmed by Tesfaye Singh ([id number]) on 08/10/2022 7:09:23 AM Referred By: REFERRED SELF Confirmed By:Av Singh
[2022-08-10] MEDS: cefTRIAXone SODIUM 1,000 MG in DEXTROSE 5% 50 ML IV SCH (08:41)
[2022-08-10] MEDS: DULoxetine HCL 60 MG CAP PO SCH (08:42)
[2022-08-10] MEDS: FLUTICASONE/VILANTEROL 200/25MCG 14 PUFFS/INHALER INH SCH (08:42)
[2022-08-10] MEDS: ADVANCED PROBIOTIC 1250 MG CAPSULE PO SCH ×2 (08:42→22:14)
[2022-08-10] MEDS: RASPBERRY SYRUP 5 ML UDP PO SCH (08:42)
[2022-08-10] MEDS: amLODIPine BESYLATE 5 MG TAB PO SCH (08:42)
[2022-08-10] MEDS: CLOPIDOGREL BISULFATE 75 MG TAB PO SCH (08:42)
[2022-08-10] MEDS: predniSONE 5 MG TAB PO SCH (08:43)
[2022-08-10] MEDS: MAGNESIUM OXIDE 400 MG TAB PO SCH ×2 (08:43→22:15)
[2022-08-10] MEDS: PANTOprazole 40 MG TAB PO SCH (08:43)
[2022-08-10] MEDS: ROSUVASTATIN CALCIUM 20 MG TAB PO SCH (08:43)
[2022-08-10] MEDS: METOPROLOL SUCC 25MG EXT REL TAB PO SCH (08:43)
[2022-08-10] MEDS: VANCOMYCIN HCL 125 MG/2.5ML SOLN PO SCH (08:43)
--- NOTE | 2022-08-10 08:58 | Cardiology Consultation ---
Date of Consultation August 10, 2022 Assessment & Plan (1) Paroxysmal atrial tachycardia: (2) PAC (premature atrial contraction): (3) Acute UTI: (4) Sepsis: (5) Hyponatremia: Plan Telemetry reviewed demonstrating sinus rhythm with PACs, and runs of paroxysmal atrial tachycardia. There is no definitive evidence of atrial fibrillation. Blood pressure mildly hypertensive. Titrate Toprol-XL to 50 mg twice daily. Replace electrolytes as indicated. Management of sepsis, UTI, recurrent C. difficile infection, and hyponatremia as per primary service. History of Present Illness Reason for Consultation: Possible atrial fibrillation Requesting Physician: Dr. Gutierrez Attending Physician: Belkis Seymour, History of Present Illness 76-year-old female presented to the emergency department 08/06/2022 with a change in mental status. Diagnosed with metabolic encephalopathy and urinary tract infection. Urine culture growing Klebsiella. Cardiology consultation requested due to possible atrial fibrillation. ECGs since admission demonstrating sinus rhythm, sinus tachycardia with PACs and PVCs. Patient is confused however awake and alert. Believes she is in [place] at this time. Otherwise cooperative. Denies chest pain, shortness of breath, abdominal discomfort, or dysuria. Telemetry reviewed demonstrating sinus rhythm with frequent PACs and brief bursts of paroxysmal atrial tachycardia. There is no definitive evidence of atrial fibrillation. Allergies Allergy/AdvReac Type Severity Reaction Status Date / Time Influenza Virus Vaccines Allergy Severe FLOWN TO Verified 08/06/22 17:37 [facility]. methotrexate Allergy Intermediate RASH/PNEUMO Verified 08/06/22 17:37 NITIS Penicillins Allergy Intermediate hives Verified 08/06/22 17:37 ranitidine Allergy Intermediate rash Verified 08/06/22 17:37 INSECTIC[facility]ES AdvReac Severe CAUSE Uncoded 08/06/22 17:37 BREATHING ISSUES Home Medications Medication Instructions Recorded Confirmed Type duloxetine 30 mg capsule,delayed 60 mg PO DAILY 07/20/18 08/06/22 History release folic acid 1 mg tablet 1 mg PO QAM 07/20/18 08/06/22 History prednisone 5 mg tablet 5 mg PO QAM 07/20/18 08/06/22 History albuterol sulfate 90 mcg/actuation 2 puff inhalation Q4 PRN Shortness 03/07/19 08/06/22 History aerosol inhaler (ProAir HFA) Of Breath cyanocobalamin (vitamin B-12) 2,000 mcg PO [id number] 03/07/19 08/06/22 History 1,000 mcg tablet (Vitamin B-12) vit A 300 mcg-C 200 mg-E 27 1 tab PO QDL 03/07/19 08/06/22 History mg-lutein 2 mg and minerals tablet (Ocuvite with Lutein) multivit with 1 tab PO QDL 11/12/19 08/06/22 History alvpvydq-ycaa-NW-lutein 8 mg iron-400 mcg-300 mcg tablet (Centrum Silver Women) montelukast 10 mg tablet 10 mg PO HS 11/15/20 08/06/22 History latanoprost 0.005 % eye drops 1 drp OPB HS 01/03/21 08/06/22 History solifenacin 10 mg tablet (Vesicare) 10 mg PO QDL 08/22/21 08/06/22 History acetaminophen 325 mg tablet 325 mg PO BID PRN Pain 03/21/22 08/06/22 History fluticasone furoate 200 1 inh inhalation DAILY 03/21/22 08/06/22 History mcg-vilanterol 25 mcg/dose inhalation powder (Breo Ellipta) thiamine HCl (vitamin B1) 100 mg 50 mg PO DAILY 03/21/22 08/06/22 History tablet vancomycin 125 mg capsule 125 mg PO DAILY 03/21/22 08/06/22 History clopidogrel 75 mg tablet 75 mg PO QAM #30 tabs 04/01/22 08/06/22 Rx magnesium oxide 400 mg (241.3 mg 400 mg PO BID #60 tabs 04/01/22 08/06/22 Rx magnesium) tablet rosuvastatin 10 mg tablet 20 mg PO QAM #60 tabs 04/01/22 08/06/22 Rx Lactobacillus rhamnosus GG 5 5 cell PO BID 08/06/22 08/06/22 History billion cell oral powder packet (CultureTwijector Kids Probiotics) albuterol sulfate 2.5 mg/3 mL 2.5 mg inhalation DIRECTED PRN 08/06/22 08/06/22 History (0.083 %) solution for nebulization Shortness Of Breath Or Wheezing amlodipine 10 mg tablet 10 mg PO DAILY 08/06/22 08/06/22 History betamethasone dipropionate 0.05 % 1 applic topical BID PRN AFFECTED 08/06/22 08/06/22 History topical cream AREA cholecalciferol (vitamin D3) 50 50 mcg PO DAILY 08/06/22 08/06/22 History mcg (2,000 unit) capsule (Vitamin D3) ferrous sulfate 325 mg (65 mg 325 mg PO DAILY 08/06/22 08/06/22 History iron) tablet levalbuterol HCl 1.25 mg/3 mL 1.25 mg inhalation Q4H PRN 08/06/22 08/06/22 History solution for nebulization (Xopenex) SOB/COUGH/WHEEZING menthol 0.44 %-zinc oxide 20.6 % 1 applic topical BID PRN AFFECTED 08/06/22 08/06/22 History topical ointment (Calmoseptine) AREA metoprolol succinate 25 mg 75 mg PO DAILY 08/06/22 08/06/22 History tablet,extended release 24 hr pantoprazole 40 mg tablet,delayed 40 mg PO DAILY 08/06/22 08/06/22 History release (Protonix) triamcinolone acetonide 0.1 % 1 applic topical BID PRN AFFECTED 08/06/22 08/06/22 History topical cream AREA Patient History Medical History Abnormal ECG Acute hyponatremia Asthma inhalers prn Chronic steroid use prednisone daily CKD (chronic kidney disease), stage III COPD (chronic obstructive pulmonary disease) inhalers prn Depression DJD of right shoulder DM type 2 (diabetes mellitus, type 2) Dyslipidemia Elevated troponin Gastroparesis GERD (gastroesophageal reflux disease) Glaucoma Gout H/O interstitial lung disease "drug induced- methotrexate " Heart disease History of stroke HTN (hypertension) Migraines NSTEMI (non-ST elevated myocardial infarction) (08/06/13) Osteoarthritis Peripheral neuropathy Rheumatoid arthritis "on chronic steroids" RSV infection Syncope Surgical History H/O cardiac catheterization "cath 07/2013- single vessel CAD involving apical segment LAD, medical management indicated" H/O colonoscopy History of esophagogastroduodenoscopy (EGD) History of hysterectomy History of tooth extraction all top teeth S/P removal of ovarian cyst S/P rotator cuff repair "right shoulder" S/P total knee arthroplasty "left knee" Family History Father Family history of diabetes mellitus Mother Heart disease Hypertension Other No family history of adverse response to anesthesia Social History Smoking Status: Unknown if ever smoked Second Hand Exposure: No; Hx Alcohol Use: No Hx Substance Use: No Preferred Language: Bengali Communication Ability: Effective Bag Loader Required: No Beliefs That Will Affect Care: None marital status: Current Living Situation: Spouse Feels Safe at Home: Yes Assistive Devices: Bedside Commode, Walker and Wheelchair Review of Systems Review of Systems: All systems reviewed & are unremarkable except as noted in Subjective Physical Exam Constitutional: + ill appearing Respiratory: normal respiratory effort; no respiratory distress, no labored breathing and no retractions Auscultation: no crackles, no rales, no rhonchi and no wheezes Cardiovascular: Rate/Rhythm: regular rate; + abnormal rhythm (Occasional ectopy) Heart Sounds: normal S1 and normal S2; no murmur Vessels: radial pulses present; no JVD and no carotid bruit Gastrointestinal (Abdomen): Inspection/Auscultation: abdomen normal to inspect ion and normal bowel sounds; abdomen not distended Percussion/Palpation: abdomen soft; abdomen nontender, no guarding and abdomen not rigid Neurologic: CN's II-XI intact bilaterally and moves all extremities; no focal motor deficits Results & Data ([facility]) Vital Signs (Past 12 Hours) Vital Signs Temp Pulse Pulse Resp BP Pulse Ox O2 Del Method 08/10/22 08:21 37.3 C 119 H 20 153/65 H 93 Room Air 08/10/22 07:41 115 H 08/10/22 04:13 95 H 156/80 H 94 Room Air 08/10/22 02:45 36.8 C 73 20 171/76 H 94 Room Air 08/09/22 22:20 80 08/09/22 23:00 37.1 C 93 H 18 152/75 H 93 Room Air Diagnostic Findings 7 day ZIO 09/04/21: Patient had a min HR of 50 bpm, max HR of 130 bpm, and avg HR of 65 bpm. Predominant underlying rhythm was Sinus Rhythm. 1 run of Supraventricular Tachycardia occurred lasting 4 beats with a max rate of 130 bpm (avg 128 bpm). Isolated SVEs were rare (<1.0%), SVE Couplets were rare (<1.0%), and SVE Triplets were rare (<1.0%). Isolated VEs were rare (<1.0%), and no VE Couplets or VE Triplets were present. Inverted QRS complexes possibly due to inverted placement of device. No patient markers or diary entries were submitted
[2022-08-10] MEDS: INSULIN ASPART PER UNIT SC SCH ×4 (09:07→22:15)
[2022-08-10] MEDS: ACETAMINOPHEN 1,000 MG/100 ML VIAL IV PRN (09:28)
--- NOTE | 2022-08-10 10:11 | Electrocardiogram Report ---
Test Reason : Blood Pressure : / mmHG Vent. Rate : 139 BPM Atrial Rate : 055 BPM P-R Int : 192 ms QRS Dur : 108 ms QT Int : 312 ms P-R-T Axes : 073 056 -02 degrees QTc Int : 474 ms Poor data quality, interpretation may be adversely affected Rhythm not interpretable Low voltage QRS Incomplete right bundle branch block Abnormal ECG When compared with ECG of 09-AUG-2022 21:33, Incomplete right bundle branch block has replaced Right bundle branch block Confirmed by Tesfaye Singh ([id number]) on 08/10/2022 10:11:42 AM Referred By: REFERRED SELF Confirmed By:Av Singh
--- NOTE | 2022-08-10 14:41 | Hospitalist Progress Note ---
Date of Service August 10, 2022 Assessment & Plan (1) Fever: Plan: Uncertain etiology. check repeat CXR for any developing pneumonia. This shows some atelectasis on the right middle lobe. As she has been spiking fevers, will extend coverage of her antibiotic regimen to include azithromycin. Checking LE dopplers to rule out DVT-these were negative. She has no overt skin breakdown per primary RN. She reports feeling well but still with urinary symptoms incl uding urgency and incontinence. Repeat urinalysis reveals UTI has cleared up. (2) Acute metabolic encephalopathy: Plan: 2/2 UTI, likely ongoing for last couple of weeks. also offers that she gets intermittently confused on a regular basis at home. Cont antibiotics for infection. She is confused and sleepy today (3) UTI (urinary tract infection): Plan: Klebsiella oxytoca in urine with slight improvement since starting the Rocephin. Cont abx and avoid combs if possible. Blood cultures are clear. Repeat temp again this morning with worsening BP and rising HR with the elevation in temp overnight. No leukocytosis. Repeating urine to ensure resolution of the infection. (4) Hyponatremia: Plan: Improved. Eating and drinking. No fluid restriction at this time. (5) Fall: Plan: Progressive weakness likely related to active infection in setting of prior h/o stroke with known residual deficits. PT/OT (6) Wrist injury: Plan: L triquetrum fracture. Orthopedics is consulted. Splint in place and she appears to have pain well managed. I am holding on giving continuous acetaminophen given the level of somnolence. Would not give any narcotics or other pain meds at this time until mental status improves. She doesn't appear to have pain in the wrist, but if her mental status doesn't improve, will consider scheduling some pain meds. Cont splint and ice to area TID to combat swelling over the next few days. (7) Generalized weakness: Plan: PT/OT (8) Recurrent Clostridioides difficile infection: Plan: Seen by ID on 07/18/22. Has had 3 recurrences of c difficile diarrhea. Chronically on vancomycin once daily for suppression which has been keeping her BMs to 1-2 formed stools daily. She continues on this now and will not stop it until she is off the current antibiotics. Cont vanc PO once daily. No diarrhea in last 24 hours. (9) DM type 2 (diabetes mellitus, type 2): Plan: She has a slightly elevated A1C of 7.0, likely related to ongoing prednisone use. Not taking any blood glucose lowering medications at home. Current inpatient glucose not at goal. Will start with some basal bolus insulin at this time with consistently elevated fasting glucose in the morning. (10) History of stroke: Plan: chronic, cont medical management. (11) CKD (chronic kidney disease), stage III: Plan: chronic, stable. Cont monitoring and renally dose meds as needed. (12) HTN (hypertension): Plan: chronic, no changes in BP meds. (13) Depression: Plan: chronic, stable. Cont duloxetine per home regimen. (14) DVT prophylaxis: Plan: heparin Full Code Dispo-cont telemetry Belkis Seymour DO [facility] Hospitalist Admission and Anticipated Discharge Date Admission Date: August 06, 2022 Subjective 76 yo F presented to the hospital with AMS, workup reveals a UTI. Has been having progressively higher fevers over two weeks along with progressive weakness and confusion. [place] is more confused today She is lethargic limiting ROS Persistent daily fever is present. Review of Systems Review of Systems: All systems were reviewed and negative except as indicated in subjective above. Physical Exam Physical Exam: CONSTITUTIONAL: WNWD, vitals as above, NAD EYES: normal conjunctivae, no scleral icterus ENT: external ear and nose normal, oropharynx clear, edentulous and mouth breathing when falls asleep. NECK: trachea midline, RESPIRATORY: coarse crackles heard on right mid lung.no rales or wheezes, normal respiratory effort CARDIOVASCULAR: reg rate and regular rhythm, 3/6 KENJI heard at LSB, no JVD, no peripheral edema CHEST: inspection of chest was normal GASTROINTESTINAL: soft, nontender, ND, no guarding MUSCULOSKELETAL: strength 5/5 throughout with right leg and arm weaker generally than the left. Head is normocephalic and atraumatic SKIN: warm and dry NEUROLOGIC: CN 2-12 grossly intact, alert and no gross focal deficits. PSYCHIATRIC: lethargic, confused. Results & Data Results & Data ([facility]) Vital Signs (Past 12 Hours) Vital Signs Temp Pulse Pulse Resp BP Pulse Ox O2 Del Method 08/10/22 11:54 36.5 C 67 20 113/70 94 Room Air 08/10/22 11:44 37.1 C 08/10/22 09:24 37.8 C H 90 16 144/68 H 96 Room Air 08/10/22 08:21 37.3 C 119 H 20 153/65 H 93 Room Air 08/10/22 07:41 115 H 08/10/22 04:13 95 H 156/80 H 94 Room Air 08/10/22 02:45 36.8 C 73 20 171/76 H 94 Room Air Medications Administered Current Inpatient Medications Albuterol (Albuterol Hfa 8 Gm Inhaler) 2 puffs INH Q4 PRN PRN Reason: Shortness Of Breath Stop: 09/05/22 21:52 Amlodipine Besylate (Amlodipine Besylate 5 Mg Tab) 10 mg PO DAILY KARLA Stop: 09/06/22 08:59 Last Admin: 08/10/22 08:42 Dose: 10 mg Betamethasone Dipropion Augmented (Betamethasone Dip Aug (Diprolene) 0.05% Cr 15 Gm Tube) 1 appln EXT BID PRN PRN Reason: AFFECTED AREA Stop: 09/05/22 22:10 Calamine/Phenol (Menthol-Zinc Oxide 360 Appln/120 Gm Tube) 1 appln EXT BID PRN PRN Reason: AFFECTED AREA Stop: 09/05/22 21:52 Clopidogrel Bisulfate (Clopidogrel Bisulfate 75 Mg Tab) 75 mg PO QAM [facility] Stop: 09/06/22 08:59 Last Admin: 08/10/22 08:42 Dose: 75 mg Cyanocobalamin (Cyanocobalamin (B-12) 500 Mcg Tablet) 2,000 mcg PO MoWeFr@0900 KARLA Stop: 09/07/22 08:59 Last Admin: 08/08/22 08:58 Dose: 2,000 mcg Dextrose (Dextrose 50% 50 Ml Syringe) 25 - 50 ml IV UD PRN; Protocol PRN Reason: Hypoglycemia Protocol Stop: 09/05/22 21:52 Duloxetine HCl (Duloxetine Hcl 60 Mg Cap) 60 mg PO DAILY KARLA Stop: 09/06/22 08:59 Last Admin: 08/10/22 08:42 Dose: 60 mg Ferrous Sulfate (Ferrous Sulfate 325 Mg Tab) 325 mg PO DAILY KARLA Stop: 09/06/22 08:59 Last Admin: 08/07/22 09:22 Dose: Not Given Fluticasone/Vilanterol (Fluticasone/Vilanterol 200/25mcg 14 Puffs/Inhaler) 1 puffs INH DAILY KARLA Stop: 09/06/22 08:59 Last Admin: 08/10/22 08:42 Dose: 1 puffs Folic Acid (Folic Acid 1 Mg Tab) 1 mg PO QAM KARLA Stop: 09/06/22 08:59 Last Admin: 08/07/22 09:22 Dose: Not Given Glucagon (Glucagon For Inj 1 Mg Vial) 1 mg SQ UD PRN; Protocol PRN Reason: Hypoglycemia Protocol Stop: 09/05/22 21:52 Glucose (Glucose 40% Gel 15 Gm Tube) 15 - 30 gm PO UD PRN; Protocol PRN Reason: Hypoglycemia Protocol Stop: 09/05/22 21:52 Glucose (Glucose 10 Tab/Tube) 4 - 8 tab PO UD PRN; Protocol PRN Reason: Hypoglycemia Treatment Stop: 09/05/22 21:52 Heparin Sodium (Porcine) (Heparin Sod 5,000 Unit/0.5 Ml Vial) 5,000 units SQ Q8 KARLA Stop: 09/05/22 21:59 Last Admin: 08/10/22 13:06 Dose: 5,000 units Ceftriaxone Sodium 1,000 mg/ (Dextrose) 60 mls @ 100 mls/hr IV DAILY KARLA; Protocol Stop: 08/12/22 08:59 Last Infusion: 08/10/22 11:40 Dose: Infused Acetaminophen (Ofirmev) 1,000 mg in 100 mls @ 400 mls/hr IV Q8H PRN PRN Reason: pain/fever Stop: 08/10/22 19:59 Last Infusion: 08/10/22 09:53 Dose: Infused Azithromycin 500 mg/ Dextrose 255 mls @ 127.5 mls/hr IV Q24H KARLA Stop: 08/12/22 14:59 Last Infusion: 08/09/22 17:17 Dose: Infused Insulin Aspart (Insulin Aspart Per Unit) 0 units SC ACHS KARLA Stop: 09/08/22 14:14 Last Admin: 08/10/22 13:00 Dose: 3 units Insulin Glargine (Lantus Per Unit Charge) 10 units SQ HS KARLA Stop: 09/08/22 20:59 Last Admin: 08/09/22 21:25 Dose: 10 units Lactobacillus Acidophilus (Advanced Probiotic 1250 Mg Capsule) 2 cap PO BID KARLA Stop: 09/05/22 21:52 Last Admin: 08/10/22 08:42 Dose: 2 cap Latanoprost (Latanoprost 0.005% Op Soln 2.5 Ml Btl) 1 drops OPB HS KARLA Stop: 09/05/22 21:52 Last Admin: 08/09/22 20:22 Dose: 1 drops Levalbuterol HCl (Levalbuterol Hcl 1.25 Mg/3 Ml Neb) 1.25 mg INH Q4H PRN; Protocol PRN Reason: SOB/COUGH/WHEEZING Stop: 09/05/22 21:52 Magnesium Oxide (Magnesium Oxide 400 Mg Tab) 400 mg PO BID KARLA Stop: 09/05/22 21:52 Last Admin: 08/10/22 08:43 Dose: 400 mg Metoprolol Succinate (Metoprolol Succ 50mg Ext Rel Tab) 50 mg PO BID KARLA Stop: 09/10/22 08:59 Metoprolol Succinate (Metoprolol Succ 25mg Ext Rel Tab) 25 mg PO ONE ONE Stop: 08/10/22 21:01 Miscellaneous (Carbohydrates For Hypoglycemia ) 15 - 30 gm PO UD PRN PRN Reason: Hypoglycemia Protocol Stop: 09/05/22 21:52 Miscellaneous (Solifenacin [Vesicare]: Order Awaiting Action) 1 each N/A QS KARLA Stop: 09/06/22 07:59 Last Admin: 08/07/22 07:45 Dose: Not Given Montelukast Sodium (Montelukast Sodium 10 Mg Tablet) 10 mg PO HS KARLA Stop: 09/05/22 21:52 Last Admin: 08/09/22 20:23 Dose: 10 mg Multivitamins/Minerals (Cerovite Adv Formula Tab) 1 tab PO QDL KARLA Stop: 09/06/22 11:29 Last Admin: 08/07/22 12:50 Dose: Not Given Pantoprazole Sodium (Pantoprazole 40 Mg Tab) 40 mg PO DAILY KARLA Stop: 09/06/22 08:59 Last Admin: 08/10/22 08:43 Dose: 40 mg Prednisone (Prednisone 5 Mg Tab) 5 mg PO QAM KARLA Stop: 09/06/22 08:59 Last Admin: 08/10/22 08:43 Dose: 5 mg Raspberry (Raspberry Syrup 5 Ml Udp) 5 ml PO DAILY KARLA Stop: 08/17/22 08:59 Last Admin: 08/10/22 08:42 Dose: 5 ml Rosuvastatin Calcium (Rosuvastatin Calcium 20 Mg Tab) 20 mg PO QAM KARLA Stop: 09/06/22 08:59 Last Admin: 08/10/22 08:43 Dose: 20 mg Thiamine HCl (Thiamine Hcl 50 Mg Tablet) 50 mg PO DAILY KARLA Stop: 09/06/22 08:59 Last Admin: 08/07/22 09:24 Dose: Not Given Triamcinolone Acetonide (Triamcinolone Acet 0.1% Cr 15 Gm Tube) 1 appln TOP BID PRN PRN Reason: AFFECTED AREA Stop: 09/05/22 21:52 Vancomycin HCl (Vancomycin Hcl 125 Mg/2.5ml Soln) 125 mg PO DAILY KARLA Stop: 09/06/22 08:59 Last Admin: 08/10/22 08:43 Dose: 125 mg Vitamin D (Cholecalciferol 1,000 Units 25 Mcg Tab) 2,000 units PO DAILY KARLA Stop: 09/06/22 08:59 Last Admin: 08/07/22 09:22 Dose: Not Given (1) Fall Encounter type: initial encounter Qualified Code(s): W19.XXXA - Unspecified fall, initial encounter
[2022-08-10] MEDS: AZITHROMYCIN 500 MG in DEXTROSE 5% 250 ML IV SCH (15:43)
[2022-08-10] MEDS ORDERED: METOPROLOL SUCC 25MG EXT REL TAB PO ONE (21:00)
[2022-08-10] MEDS: MONTELUKAST SODIUM 10 MG TABLET PO SCH (22:15)
[2022-08-10] MEDS: LATANOPROST 0.005% OP SOLN 2.5 ML BTL OPB SCH (22:15)
[2022-08-10] MEDS: LANTUS PER UNIT CHARGE SQ SCH (22:16)
[2022-08-11] MEDS: HEPARIN SOD 5,000 UNIT/0.5 ML VIAL SQ SCH ×3 (05:46→21:17)
[2022-08-11 09:22] LABS: Hematocrit (blood only) 31.2 % (34.1-44.9); Mean Corpuscular Hemoglobin 27.8 pg (25.0-34.0); Mean Corpuscular Hgb Conc 35.3 g/dL (32.0-36.0); Mean Platelet Volume 8.1 fL (9.4-12.3); Platelet Count 250 K/uL (130-400); RDW Coefficient of Variation 16.4 % (11.5-14.5); RDW Standard Deviation 46.8 fL (36.4-46.3); Red Blood Count 3.95 M/uL (3.93-5.22); White Blood Count 9.92 K/ul (4.8-10.8)
[2022-08-11] MEDS: MAGNESIUM OXIDE 400 MG TAB PO SCH ×2 (09:41→21:16)
[2022-08-11] MEDS: RASPBERRY SYRUP 5 ML UDP PO SCH (09:42)
[2022-08-11] MEDS: FLUTICASONE/VILANTEROL 200/25MCG 14 PUFFS/INHALER INH SCH (09:42)
[2022-08-11] MEDS: ROSUVASTATIN CALCIUM 20 MG TAB PO SCH (09:42)
[2022-08-11] MEDS: predniSONE 5 MG TAB PO SCH (09:44)
[2022-08-11] MEDS: DULoxetine HCL 60 MG CAP PO SCH (09:44)
[2022-08-11] MEDS: CLOPIDOGREL BISULFATE 75 MG TAB PO SCH (09:44)
[2022-08-11] MEDS: amLODIPine BESYLATE 5 MG TAB PO SCH (09:44)
[2022-08-11 09:46] LABS: BUN Creatinine Ratio 14.3 (10-20); Calcium 9.3 mg/dl (8.5-10.1); Est GFR (African American) 79.4 ml/min; Est GFR (Non-African American) 68.5 ml/min; Magnesium 1.9 mg/dl (1.7-2.4); Phosphorus 2.7 mg/dl (2.5-4.9); Potassium 3.5 mmol/L (3.5-5.1)
[2022-08-11] MEDS: CYANOCOBALAMIN (B-12) 500 MCG TABLET PO SCH (09:46)
[2022-08-11] MEDS: ADVANCED PROBIOTIC 1250 MG CAPSULE PO SCH ×2 (09:46→21:16)
[2022-08-11] MEDS: cefTRIAXone SODIUM 1,000 MG in DEXTROSE 5% 50 ML IV SCH (09:47)
[2022-08-11] MEDS: METOPROLOL SUCC 50MG EXT REL TAB PO SCH ×2 (09:47→21:16)
[2022-08-11] MEDS: VANCOMYCIN HCL 125 MG/2.5ML SOLN PO SCH (09:48)
[2022-08-11] MEDS: PANTOprazole 40 MG TAB PO SCH (09:48)
[2022-08-11] MEDS: INSULIN ASPART PER UNIT SC SCH ×4 (09:49→22:28)
[2022-08-11] MEDS ORDERED: MICONAZOLE NITRATE POWDER 43 GM EXT PRN (09:55)
[2022-08-11] MEDS: ACETAMINOPHEN 325 MG TAB PO PRN ×2 (13:41→23:19)
[2022-08-11] MEDS: AZITHROMYCIN 500 MG in DEXTROSE 5% 250 ML IV SCH (13:41)
--- NOTE | 2022-08-11 14:57 | Orthopedic Consultation ---
Date of Service August 11, 2022 Assessment & Plan (1) Arthritis of both wrists: She was seen and examined by Dr. Givens today. No signs of wrist infection. She has a possible triquetral fracture of the left wrist vs aggravation of underlying wrist arthritis. Continue use of the cock up wrist brace for the next month. Follow up with Dr. Givens in clinic in approx 4 weeks. History of Present Illness Reason for Consultation: . Requesting Physician: . Attending Physician: DO Refugio Mendez Be[place] is a 76 year old patient admitted last week with worsening confusion, frequent falls, UTI and hyponatremia. Orthopedics was consulted for wrist pain. She has bilateral wrist pain, left worse than right. She reports falling about 1 week ago and thinks she injured her left wrist then. She was placed in a cock up wrist brace. Allergies Allergy/AdvReac Type Severity Reaction Status Date / Time Influenza Virus Vaccines Allergy Severe FLOWN TO Verified 08/06/22 17:37 [facility]. methotrexate Allergy Intermediate RASH/PNEUMO Verified 08/06/22 17:37 NITIS Penicillins Allergy Intermediate hives Verified 08/06/22 17:37 ranitidine Allergy Intermediate rash Verified 08/06/22 17:37 [facility]SE[facility] AdvReac Severe CAUSE Uncoded 08/06/22 17:37 BREATHING ISSUES Home Medications Medication Instructions Recorded Confirmed Type duloxetine 30 mg capsule,delayed 60 mg PO DAILY 07/20/18 08/06/22 History release folic acid 1 mg tablet 1 mg PO QAM 07/20/18 08/06/22 History prednisone 5 mg tablet 5 mg PO QAM 07/20/18 08/06/22 History albuterol sulfate 90 mcg/actuation 2 puff inhalation Q4 PRN Shortness 03/07/19 08/06/22 History aerosol inhaler (ProAir HFA) Of Breath cyanocobalamin (vitamin B-12) 2,000 mcg PO [id number] 03/07/19 08/06/22 History 1,000 mcg tablet (Vitamin B-12) vit A 300 mcg-C 200 mg-E 27 1 tab PO QDL 03/07/19 08/06/22 History mg-lutein 2 mg and minerals tablet (Ocuvite with Lutein) multivit with 1 tab PO QDL 11/12/19 08/06/22 History uwmavipq-kqpf-OJ-lutein 8 mg iron-400 mcg-300 mcg tablet (Centrum Silver Women) montelukast 10 mg tablet 10 mg PO HS 11/15/20 08/06/22 History latanoprost 0.005 % eye drops 1 drp OPB HS 01/03/21 08/06/22 History solifenacin 10 mg tablet (Vesicare) 10 mg PO QDL 08/22/21 08/06/22 History acetaminophen 325 mg tablet 325 mg PO BID PRN Pain 03/21/22 08/06/22 History fluticasone furoate 200 1 inh inhalation DAILY 03/21/22 08/06/22 History mcg-vilanterol 25 mcg/dose inhalation powder (Breo Ellipta) thiamine HCl (vitamin B1) 100 mg 50 mg PO DAILY 03/21/22 08/06/22 History tablet vancomycin 125 mg capsule 125 mg PO DAILY 03/21/22 08/06/22 History clopidogrel 75 mg tablet 75 mg PO QAM #30 tabs 04/01/22 08/06/22 Rx magnesium oxide 400 mg (241.3 mg 400 mg PO BID #60 tabs 04/01/22 08/06/22 Rx magnesium) tablet rosuvastatin 10 mg tablet 20 mg PO QAM #60 tabs 04/01/22 08/06/22 Rx Lactobacillus rhamnosus GG 5 5 cell PO BID 08/06/22 08/06/22 History billion cell oral powder packet ([facility]I[employer] On[facility] Probiotics) albuterol sulfate 2.5 mg/3 mL 2.5 mg inhalation DIRECTED PRN 08/06/22 08/06/22 History (0.083 %) solution for nebulization Shortness Of Breath Or Wheezing amlodipine 10 mg tablet 10 mg PO DAILY 08/06/22 08/06/22 History betamethasone dipropionate 0.05 % 1 applic topical BID PRN AFFECTED 08/06/22 08/06/22 History topical cream AREA cholecalciferol (vitamin D3) 50 50 mcg PO DAILY 08/06/22 08/06/22 History mcg (2,000 unit) capsule (Vitamin D3) ferrous sulfate 325 mg (65 mg 325 mg PO DAILY 08/06/22 08/06/22 History iron) tablet levalbuterol HCl 1.25 mg/3 mL 1.25 mg inhalation Q4H PRN 08/06/22 08/06/22 History solution for nebulization (Xopenex) SOB/COUGH/WHEEZING menthol 0.44 %-zinc oxide 20.6 % 1 applic topical BID PRN AFFECTED 08/06/22 08/06/22 History topical ointment (Calmoseptine) AREA metoprolol succinate 25 mg 75 mg PO DAILY 08/06/22 08/06/22 History tablet,extended release 24 hr pantoprazole 40 mg tablet,delayed 40 mg PO DAILY 08/06/22 08/06/22 History release (Protonix) triamcinolone acetonide 0.1 % 1 applic topical BID PRN AFFECTED 08/06/22 08/06/22 History topical cream AREA Past Med/Surg History Medical History Abnormal ECG Acute hyponatremia Asthma inhalers prn Chronic steroid use prednisone daily CKD (chronic kidney disease), stage III COPD (chronic obstructive pulmonary disease) inhalers prn Depression DJD of right shoulder DM type 2 (diabetes mellitus, type 2) Dyslipidemia Elevated troponin Gastroparesis GERD (gastroesophageal reflux disease) Glaucoma Gout H/O interstitial lung disease "drug induced- methotrexate " Heart disease History of stroke HTN (hypertension) Migraines NSTEMI (non-ST elevated myocardial infarction) (08/06/13) Osteoarthritis Peripheral neuropathy Rheumatoid arthritis "on chronic steroids" RSV infection Syncope Surgical History H/O cardiac catheterization "cath 07/2013- single vessel CAD involving apical segment LAD, medical management indicated" H/O colonoscopy History of esophagogastroduodenoscopy (EGD) History of hysterectomy History of tooth extraction all top teeth S/P removal of ovarian cyst S/P rotator cuff repair "right shoulder" S/P total knee arthroplasty "left knee" Family History Father Family history of diabetes mellitus Mother Heart disease Hypertension Other No family history of adverse response to anesthesia Social History Smoking Status: Unknown if ever smoked Second Hand Exposure: No; Hx Alcohol Use: No Hx Substance Use: No Preferred Language: Albanian Communication Ability: Effective Truck Safety Inspector Required: No Beliefs That Will Affect Care: None marital status: Current Living Situation: Spouse Feels Safe at Home: Yes Assistive Devices: Bedside Commode, Walker and Wheelchair Review of Systems All systems reviewed & are unremarkable except as noted in HPI & below. Physical Exam . alert, NAD She has stiffness of bilateral wrists, some pain with range of motion. Tender to palpation over the dorsal aspect of both wrists. Mild swelling of the dorsal hand area of the left hand. No redness or warmth to either wrist. No signs of wrist infection. Skin intact. Sensation intact. Results & Data Results & Data Laboratory Results . Diagnostic Findings . xrays of bilateral wrists, 3 views, reviewed and show advanced arthritic changes of both wrists. Possible triquetral fracture. PG Care Time/CCT Total # of Minutes Spent Total Time Spent with Patient: Total time spent is greater than 50% in coordination of care (as documented) at patient's floor/unit and/or counseling patient: Coding Level of Care Code 92166 Inpt Consult Level 3 Diagnoses Arthritis of both wrists M19.031; M19.032
[2022-08-11] MEDS: MONTELUKAST SODIUM 10 MG TABLET PO SCH (21:16)
[2022-08-11] MEDS: LATANOPROST 0.005% OP SOLN 2.5 ML BTL OPB SCH (21:17)
--- NOTE | 2022-08-11 22:19 | Hospitalist Progress Note ---
Date of Service August 11, 2022 Assessment & Plan (1) Fever: Plan: Uncertain etiology. check repeat CXR for any developing pneumonia. This shows some atelectasis on the right middle lobe. As she has been spiking fevers, will extend coverage of her antibiotic regimen to include azithromycin. Checking LE dopplers to rule out DVT-these were negative. She has no overt skin breakdown per primary RN. She reports feeling well but still with urinary symptoms incl uding urgency and incontinence. Repeat urinalysis reveals UTI has cleared up. (2) Acute metabolic encephalopathy: Plan: 2/2 UTI, likely ongoing for last couple of weeks. also offers that she gets intermittently confused on a regular basis at home. Cont antibiotics for infection. Waxing/waning mental status (3) UTI (urinary tract infection): Plan: Klebsiella oxytoca in urine with slight improvement since starting the Rocephin. Cont abx and avoid comsb if possible. Blood cultures are clear. Repeat temp again this morning. No leukocytosis. Repeating urine to ensure resolution of the infection. (4) Hyponatremia: Plan: Improved. Eating and drinking. No fluid restriction at this time. (5) Fall: Plan: Progressive weakness likely related to active infection in setting of prior h/o stroke with known residual deficits. PT/OT (6) Wrist injury: Plan: L triquetrum fracture. Orthopedics is consulted. Splint in place and she appears to have pain well managed. I am holding on giving continuous acetaminophen given the level of somnolence. Would not give any narcotics or other pain meds at this time until mental status improves. She doesn't appear to have pain in the wrist, but if her mental status doesn't improve, will consider scheduling some pain meds. Cont splint and ice to area TID to combat swelling over the next few days. (7) Generalized weakness: Plan: PT/OT (8) Recurrent Clostridioides difficile infection: Plan: Seen by ID on 07/18/22. Has had 3 recurrences of c difficile diarrhea. Chronically on vancomycin once daily for suppression which has been keeping her BMs to 1-2 formed stools daily. She continues on this now and will not stop it until she is off the current antibiotics. Cont vanc PO once daily. No diarrhea in last 24 hours. (9) DM type 2 (diabetes mellitus, type 2): Plan: She has a slightly elevated A1C of 7.0, likely related to ongoing prednisone use. Not taking any blood glucose lowering medications at home. Current inpatient glucose not at goal. Will start with some basal bolus insulin at this time with consistently elevated fasting glucose in the morning. (10) History of stroke: Plan: chronic, cont medical management. (11) CKD (chronic kidney disease), stage III: Plan: chronic, stable. Cont monitoring and renally dose meds as needed. (12) HTN (hypertension): Plan: chronic, no changes in BP meds. (13) Depression: Plan: chronic, stable. Cont duloxetine per home regimen. (14) DVT prophylaxis: Plan: heparin Full Code Dispo-cont telemetry Belkis Seymour DO [facility] Hospitalist Admission and Anticipated Discharge Date Admission Date: August 06, 2022 Subjective 76 yo F presented to the hospital with AMS, workup reveals a UTI. Has been having progressively higher fevers over two weeks along with progressive weakness and confusion. Remains intermittently fatigued ROS is difficult to elicit as a result of fatigue and confusion Consistently denies pain Review of Systems Review of Systems: All systems were reviewed and negative except as indicated in subjective above. ROS is somewhat limited by confusion and fatigue Physical Exam Physical Exam: CONSTITUTIONAL: WNWD, vitals as above, NAD EYES: normal conjunctivae, no scleral icterus ENT: external ear and nose normal, oropharynx clear, edentulous and mouth breathing when falls asleep. NECK: trachea midline, RESPIRATORY: coarse crackles heard on right mid lung.no rales or wheezes, normal respiratory effort CARDIOVASCULAR: reg rate and regular rhythm, 3/6 KENJI heard at LSB, no JVD, no peripheral edema CHEST: inspection of chest was normal GASTROINTESTINAL: soft, nontender, ND, no guarding MUSCULOSKELETAL: strength 5/5 throughout with right leg and arm weaker generally than the left. Head is normocephalic and atraumatic SKIN: warm and dry NEUROLOGIC: CN 2-12 grossly intact, alert and no gross focal deficits. PSYCHIATRIC: waxing/waning confusion and fatigue. Results & Data Results & Data ([facility]) Vital Signs (Past 12 Hours) Vital Signs Temp Pulse Pulse Resp BP Pulse Ox O2 Del Method 08/11/22 19:59 36.9 C 72 18 147/74 H 94 Room Air 08/11/22 15:46 37 C 70 18 129/71 92 Room Air 08/11/22 15:44 72 08/11/22 11:39 38.4 C H 90 20 138/69 91 Room Air Laboratory Results Short CBC 08/11/22 Range/Units 09:01 WBC 9.92 (4.8-10.8) K/ul Hgb 11.0 L (12.0-16.0) g/dl Hct 31.2 L (34.1-44.9) % Plt Count 250 (130-400) K/uL BMP 08/11/22 09:01 Sodium 131 L Potassium 3.5 Chloride 94 L Carbon Dioxide 29 BUN 12 Creatinine 0.84 Glucose 91 Calcium 9.3 Medications Administered Current Inpatient Medications Acetaminophen (Acetaminophen 325 Mg Tab) 650 mg PO Q4H PRN PRN Reason: pain or fever Stop: 09/10/22 13:26 Last Admin: 08/11/22 13:41 Dose: 650 mg Albuterol (Albuterol Hfa 8 Gm Inhaler) 2 puffs INH Q4 PRN PRN Reason: Shortness Of Breath Stop: 09/05/22 21:52 Amlodipine Besylate (Amlodipine Besylate 5 Mg Tab) 10 mg PO DAILY [facility] Stop: 09/06/22 08:59 Last Admin: 08/11/22 09:44 Dose: 10 mg Betamethasone Dipropion Augmented (Betamethasone Dip Aug (Diprolene) 0.05% Cr 15 Gm Tube) 1 appln EXT BID PRN PRN Reason: AFFECTED AREA Stop: 09/05/22 22:10 Calamine/Phenol (Menthol-Zinc Oxide 360 Appln/120 Gm Tube) 1 appln EXT BID PRN PRN Reason: AFFECTED AREA Stop: 09/05/22 21:52 Clopidogrel Bisulfate (Clopidogrel Bisulfate 75 Mg Tab) 75 mg PO QAM [facility] Stop: 09/06/22 08:59 Last Admin: 08/11/22 09:44 Dose: 75 mg Cyanocobalamin (Cyanocobalamin (B-12) 500 Mcg Tablet) 2,000 mcg PO MoWeFr@0900 [facility] Stop: 09/07/22 08:59 Last Admin: 08/11/22 09:46 Dose: 2,000 mcg Dextrose (Dextrose 50% 50 Ml Syringe) 25 - 50 ml IV UD PRN; Protocol PRN Reason: Hypoglycemia Protocol Stop: 09/05/22 21:52 Duloxetine HCl (Duloxetine Hcl 60 Mg Cap) 60 mg PO DAILY KARLA Stop: 09/06/22 08:59 Last Admin: 08/11/22 09:44 Dose: 60 mg Ferrous Sulfate (Ferrous Sulfate 325 Mg Tab) 325 mg PO DAILY KARLA Stop: 09/06/22 08:59 Last Admin: 08/07/22 09:22 Dose: Not Given Fluticasone/Vilanterol (Fluticasone/Vilanterol 200/25mcg 14 Puffs/Inhaler) 1 puffs INH DAILY KARLA Stop: 09/06/22 08:59 Last Admin: 08/11/22 09:42 Dose: 1 puffs Folic Acid (Folic Acid 1 Mg Tab) 1 mg PO QAM KARLA Stop: 09/06/22 08:59 Last Admin: 08/07/22 09:22 Dose: Not Given Glucagon (Glucagon For Inj 1 Mg Vial) 1 mg SQ UD PRN; Protocol PRN Reason: Hypoglycemia Protocol Stop: 09/05/22 21:52 Glucose (Glucose 40% Gel 15 Gm Tube) 15 - 30 gm PO UD PRN; Protocol PRN Reason: Hypoglycemia Protocol Stop: 09/05/22 21:52 Glucose (Glucose 10 Tab/Tube) 4 - 8 tab PO UD PRN; Protocol PRN Reason: Hypoglycemia Treatment Stop: 09/05/22 21:52 Heparin Sodium (Porcine) (Heparin Sod 5,000 Unit/0.5 Ml Vial) 5,000 units SQ Q8 KARLA Stop: 09/05/22 21:59 Last Admin: 08/11/22 21:17 Dose: 5,000 units Ceftriaxone Sodium 1,000 mg/ (Dextrose) 60 mls @ 100 mls/hr IV DAILY KARLA; Protocol Stop: 08/12/22 08:59 Last Infusion: 08/11/22 11:33 Dose: Infused Azithromycin 500 mg/ Dextrose 255 mls @ 127.5 mls/hr IV Q24H [facility] Stop: 08/12/22 14:59 Last Infusion: 08/11/22 15:46 Dose: Infused Insulin Aspart (Insulin Aspart Per Unit) 0 units SC ACHS KARLA Stop: 09/08/22 14:14 Last Admin: 08/11/22 18:09 Dose: 3 units Insulin Glargine (Lantus Per Unit Charge) 10 units SQ HS KARLA Stop: 09/08/22 20:59 Last Admin: 08/10/22 22:16 Dose: 10 units Lactobacillus Acidophilus (Advanced Probiotic 1250 Mg Capsule) 2 cap PO BID KARLA Stop: 09/05/22 21:52 Last Admin: 08/11/22 21:16 Dose: 2 cap Latanoprost (Latanoprost 0.005% Op Soln 2.5 Ml Btl) 1 drops OPB HS KARLA Stop: 09/05/22 21:52 Last Admin: 08/11/22 21:17 Dose: 1 drops Levalbuterol HCl (Levalbuterol Hcl 1.25 Mg/3 Ml Neb) 1.25 mg INH Q4H PRN; Protocol PRN Reason: SOB/COUGH/WHEEZING Stop: 09/05/22 21:52 Magnesium Oxide (Magnesium Oxide 400 Mg Tab) 400 mg PO BID KARLA Stop: 09/05/22 21:52 Last Admin: 08/11/22 21:16 Dose: 400 mg Metoprolol Succinate (Metoprolol Succ 50mg Ext Rel Tab) 50 mg PO BID KARLA Stop: 09/10/22 08:59 Last Admin: 08/11/22 21:16 Dose: 50 mg Miconazole Nitrate (Miconazole Nitrate Powder 43 Gm) 1 appln EXT PRN PRN PRN Reason: Affected Skin Folds Stop: 09/10/22 09:54 Miscellaneous (Carbohydrates For Hypoglycemia ) 15 - 30 gm PO UD PRN PRN Reason: Hypoglycemia Protocol Stop: 09/05/22 21:52 Miscellaneous (Solifenacin [Vesicare]: Order Awaiting Action) 1 each N/A QS KARLA Stop: 09/06/22 07:59 Last Admin: 08/07/22 07:45 Dose: Not Given Montelukast Sodium (Montelukast Sodium 10 Mg Tablet) 10 mg PO HS KARLA Stop: 09/05/22 21:52 Last Admin: 08/11/22 21:16 Dose: 10 mg Multivitamins/Minerals (Cerovite Adv Formula Tab) 1 tab PO QDL KARLA Stop: 09/06/22 11:29 Last Admin: 08/07/22 12:50 Dose: Not Given Pantoprazole Sodium (Pantoprazole 40 Mg Tab) 40 mg PO DAILY KARLA Stop: 09/06/22 08:59 Last Admin: 08/11/22 09:48 Dose: 40 mg Prednisone (Prednisone 5 Mg Tab) 5 mg PO QAM KARLA Stop: 09/06/22 08:59 Last Admin: 08/11/22 09:44 Dose: 5 mg Raspberry (Raspberry Syrup 5 Ml Udp) 5 ml PO DAILY KARLA Stop: 08/17/22 08:59 Last Admin: 08/11/22 09:42 Dose: 5 ml Rosuvastatin Calcium (Rosuvastatin Calcium 20 Mg Tab) 20 mg PO QAM KARLA Stop: 09/06/22 08:59 Last Admin: 08/11/22 09:42 Dose: 20 mg Thiamine HCl (Thiamine Hcl 50 Mg Tablet) 50 mg PO DAILY KARLA Stop: 09/06/22 08:59 Last Admin: 08/07/22 09:24 Dose: Not Given Triamcinolone Acetonide (Triamcinolone Acet 0.1% Cr 15 Gm Tube) 1 appln TOP BID PRN PRN Reason: AFFECTED AREA Stop: 09/05/22 21:52 Vancomycin HCl (Vancomycin Hcl 125 Mg/2.5ml Soln) 125 mg PO DAILY KARLA Stop: 09/06/22 08:59 Last Admin: 08/11/22 09:48 Dose: 125 mg Vitamin D (Cholecalciferol 1,000 Units 25 Mcg Tab) 2,000 units PO DAILY KARLA Stop: 09/06/22 08:59 Last Admin: 08/07/22 09:22 Dose: Not Given (1) Fall Encounter type: initial encounter Qualified Code(s): W19.XXXA - Unspecified fall, initial encounter
[2022-08-11] MEDS: LANTUS PER UNIT CHARGE SQ SCH (22:28)
[2022-08-12] MEDS: HEPARIN SOD 5,000 UNIT/0.5 ML VIAL SQ SCH ×3 (05:31→21:57)
[2022-08-12] MEDS: CLOPIDOGREL BISULFATE 75 MG TAB PO SCH (08:02)
[2022-08-12] MEDS: DULoxetine HCL 60 MG CAP PO SCH (08:02)
[2022-08-12] MEDS: ADVANCED PROBIOTIC 1250 MG CAPSULE PO SCH ×2 (08:02→21:57)
[2022-08-12] MEDS: ROSUVASTATIN CALCIUM 20 MG TAB PO SCH (08:02)
[2022-08-12] MEDS: PANTOprazole 40 MG TAB PO SCH (08:02)
[2022-08-12] MEDS: FLUTICASONE/VILANTEROL 200/25MCG 14 PUFFS/INHALER INH SCH (08:03)
[2022-08-12] MEDS: amLODIPine BESYLATE 5 MG TAB PO SCH (08:03)
[2022-08-12] MEDS: predniSONE 5 MG TAB PO SCH (08:03)
[2022-08-12] MEDS: METOPROLOL SUCC 50MG EXT REL TAB PO SCH ×2 (08:03→21:56)
[2022-08-12] MEDS: MAGNESIUM OXIDE 400 MG TAB PO SCH ×2 (08:03→21:57)
[2022-08-12] MEDS: RASPBERRY SYRUP 5 ML UDP PO SCH (08:03)
[2022-08-12] MEDS: INSULIN ASPART PER UNIT SC SCH ×4 (08:25→21:58)
[2022-08-12] MEDS: VANCOMYCIN HCL 125 MG/2.5ML SOLN PO SCH (08:56)
[2022-08-12] MEDS ORDERED: predniSONE 20 MG TAB PO STA (13:38)
--- NOTE | 2022-08-12 14:33 | Hospitalist Progress Note ---
Date of Service August 12, 2022 Assessment & Plan (1) Fever: Plan: Uncertain etiology. checked repeat CXR for any developing pneumonia. This shows some atelectasis on the right middle lobe. As she has been spiking fevers despite full course of antibiotics. UTI treated with some residual enterococcus now growing which is only 20K CFU. Will hold additional abx at this time. Checking LE dopplers to rule out DVT-these were negative. She has no overt skin breakdown per primary RN. Appreciate ID recs regarding possible source of fever. Noted large FUO workup performed over April 04. I discussed her case with Dr. Lucas who wasn't aware that she had stopped her Plaquenil a few months ago as directed by the physician on discharge. He feels she should restart this now. We also discussed the pros and cons of giving a short prednisone course. Opted to increase her chronic, daily prednisone from 5mg daily to 20mg daily and monitor her fever curve. (2) Acute metabolic encephalopathy: Plan: 2/2 UTI, likely ongoing for last couple of weeks. also offers that she gets intermittently confused on a regular basis at home. Cont antibiotics for infection. She is confused and sleepy today (3) UTI (urinary tract infection): Plan: Klebsiella oxytoca in urine -treated with course of Rocephin. No leukocytosis. (4) Hyponatremia: Plan: Improved. Eating and drinking. No fluid restriction at this time. (5) Fall: Plan: Progressive weakness likely related to active infection in setting of prior h/o stroke with known residual deficits. PT/OT (6) Wrist injury: Plan: L triquetrum fracture. Orthopedics is consulted. Splint in place and she appears to have pain well managed. I am holding on giving continuous acetaminophen given the level of somnolence. Would not give any narcotics or other pain meds at this time until mental status improves. She doesn't appear to have pain in the wrist, but if her mental status doesn't improve, will consider scheduling some pain meds. Cont splint and ice to area TID to combat swelling over the next few days. (7) Generalized weakness: Plan: PT/OT (8) Rheumatoid arthritis: Plan: cont prednisone with increased amount as above. Restart plaquenil. Followup with rheumatology after hospital discharge. (9) Recurrent Clostridioides difficile infection: Plan: Seen by ID on 07/18/22. Has had 3 recurrences of c difficile diarrhea. Chronically on vancomycin once daily for suppression which has been keeping her BMs to 1-2 formed stools daily. She continues on this now and will not stop it until she is off the current antibiotics. Cont vanc PO once daily. No diarrhea in last 24 hours. (10) DM type 2 (diabetes mellitus, type 2): Plan: She has a slightly elevated A1C of 7.0, likely related to ongoing prednisone use. Not taking any blood glucose lowering medications at home. Current inpatient glucose not at goal. Will start with some basal bolus insulin at this time with consistently elevated fasting glucose in the morning. (11) History of stroke: Plan: chronic, cont medical management. (12) CKD (chronic kidney disease), stage III: Plan: chronic, stable. Cont monitoring and renally dose meds as needed. (13) HTN (hypertension): Plan: chronic, no changes in BP meds. (14) Depression: Plan: chronic, stable. Cont duloxetine per home regimen. (15) DVT prophylaxis: Plan: heparin Full Code Dispo-cont telemetry Belkis Seymour DO [facility] Hospitalist Admission and Anticipated Discharge Date Admission Date: August 06, 2022 Subjective 76 yo F presented to the hospital with AMS, workup reveals a UTI. Has been having progressively higher fevers over two weeks along with progressive weakness and confusion. [place] is less confused and more alert today but still fatigued Denies any jordan joint pain or swelling per se Denies any new symptoms but again had fever this morning. Intermittently tolerating food because of severity of fatigue Review of Systems Review of Systems: All systems were reviewed and negative except as indicated in subjective above. Physical Exam Physical Exam: CONSTITUTIONAL: WNWD, vitals as above, NAD EYES: normal conjunctivae, no scleral icterus ENT: external ear and nose normal, oropharynx clear, edentulous and mouth breathing when falls asleep. NECK: trachea midline, RESPIRATORY: CTA throughout, no rales or wheezes, normal respiratory effort CARDIOVASCULAR: reg rate and regular rhythm, 3/6 KENJI heard at LSB, no JVD, no peripheral edema CHEST: inspection of chest was normal GASTROINTESTINAL: soft, nontender, ND, no guarding MUSCULOSKELETAL: strength 5/5 throughout with right leg and arm weaker generally than the left. Head is normocephalic and atraumatic SKIN: warm and dry NEUROLOGIC: CN 2-12 grossly intact, alert and no gross focal deficits. PSYCHIATRIC: fatigued but with effort can state that she is at [facility] correctly. Results & Data Results & Data ([facility]) Vital Signs (Past 12 Hours) Vital Signs Temp Pulse Resp BP BP Pulse Ox O2 Del Method 08/12/22 11:13 37.8 C H 81 20 140/64 92 Room Air 08/12/22 07:49 37.7 C H 75 20 164/84 H 96 Room Air 08/12/22 04:21 36.5 C 78 20 157/73 H 94 Room Air Medications Administered Current Inpatient Medications Acetaminophen (Acetaminophen 325 Mg Tab) 650 mg PO Q4H PRN PRN Reason: pain or fever Stop: 09/10/22 13:26 Last Admin: 08/11/22 23:19 Dose: 650 mg Albuterol (Albuterol Hfa 8 Gm Inhaler) 2 puffs INH Q4 PRN PRN Reason: Shortness Of Breath Stop: 09/05/22 21:52 Amlodipine Besylate (Amlodipine Besylate 5 Mg Tab) 10 mg PO DAILY [facility], [facility] Stop: 09/06/22 08:59 Last Admin: 08/12/22 08:03 Dose: 10 mg Betamethasone Dipropion Augmented (Betamethasone Dip Aug (Diprolene) 0.05% Cr 15 Gm Tube) 1 appln EXT BID PRN PRN Reason: AFFECTED AREA Stop: 09/05/22 22:10 Calamine/Phenol (Menthol-Zinc Oxide 360 Appln/120 Gm Tube) 1 appln EXT BID PRN PRN Reason: AFFECTED AREA Stop: 09/05/22 21:52 Clopidogrel Bisulfate (Clopidogrel Bisulfate 75 Mg Tab) 75 mg PO QAM KARLA Stop: 09/06/22 08:59 Last Admin: 08/12/22 08:02 Dose: 75 mg Cyanocobalamin (Cyanocobalamin (B-12) 500 Mcg Tablet) 2,000 mcg PO MoWeFr@0900 KARLA Stop: 09/07/22 08:59 Last Admin: 08/11/22 09:46 Dose: 2,000 mcg Dextrose (Dextrose 50% 50 Ml Syringe) 25 - 50 ml IV UD PRN; Protocol PRN Reason: Hypoglycemia Protocol Stop: 09/05/22 21:52 Duloxetine HCl (Duloxetine Hcl 60 Mg Cap) 60 mg PO DAILY [facility], [facility]1983 Stop: 09/06/22 08:59 Last Admin: 08/12/22 08:02 Dose: 60 mg Ferrous Sulfate (Ferrous Sulfate 325 Mg Tab) 325 mg PO DAILY KARLA Stop: 09/06/22 08:59 Last Admin: 08/07/22 09:22 Dose: Not Given Fluticasone/Vilanterol (Fluticasone/Vilanterol 200/25mcg 14 Puffs/Inhaler) 1 puffs INH DAILY KARLA Stop: 09/06/22 08:59 Last Admin: 08/12/22 08:03 Dose: 1 puffs Folic Acid (Folic Acid 1 Mg Tab) 1 mg PO QAM KARLA Stop: 09/06/22 08:59 Last Admin: 08/07/22 09:22 Dose: Not Given Glucagon (Glucagon For Inj 1 Mg Vial) 1 mg SQ UD PRN; Protocol PRN Reason: Hypoglycemia Protocol Stop: 09/05/22 21:52 Glucose (Glucose 40% Gel 15 Gm Tube) 15 - 30 gm PO UD PRN; Protocol PRN Reason: Hypoglycemia Protocol Stop: 09/05/22 21:52 Glucose (Glucose 10 Tab/Tube) 4 - 8 tab PO UD PRN; Protocol PRN Reason: Hypoglycemia Treatment Stop: 09/05/22 21:52 Heparin Sodium (Porcine) (Heparin Sod 5,000 Unit/0.5 Ml Vial) 5,000 units SQ Q8 KARLA Stop: 09/05/22 21:59 Last Admin: 08/13/22 05:39 Dose: 5,000 units Promethazine HCl 12.5 mg/ (Sodium Chloride) 50.5 mls @ 202 mls/hr IV Q6H PRN PRN Reason: Nausea And Vomiting Stop: 09/11/22 19:23 Insulin Aspart (Insulin Aspart Per Unit) 0 units SC ACHS KARLA Stop: 09/08/22 14:14 Last Admin: 08/12/22 21:58 Dose: Not Given Insulin Glargine (Lantus Per Unit Charge) 10 units SQ HS [facility], [facility] Stop: 09/08/22 20:59 Last Admin: 08/12/22 21:58 Dose: 10 units Lactobacillus Acidophilus (Advanced Probiotic 1250 Mg Capsule) 2 cap PO BID KARLA Stop: 09/05/22 21:52 Last Admin: 08/12/22 21:57 Dose: 2 cap Latanoprost (Latanoprost 0.005% Op Soln 2.5 Ml Btl) 1 drops OPB HS KARLA Stop: 09/05/22 21:52 Last Admin: 08/12/22 21:57 Dose: 1 drops Levalbuterol HCl (Levalbuterol Hcl 1.25 Mg/3 Ml Neb) 1.25 mg INH Q4H PRN; Protocol PRN Reason: SOB/COUGH/WHEEZING Stop: 09/05/22 21:52 Magnesium Oxide (Magnesium Oxide 400 Mg Tab) 400 mg PO BID KARLA Stop: 09/05/22 21:52 Last Admin: 08/12/22 21:57 Dose: 400 mg Metoprolol Succinate (Metoprolol Succ 50mg Ext Rel Tab) 50 mg PO BID KARLA Stop: 09/10/22 08:59 Last Admin: 08/12/22 21:56 Dose: 50 mg Miconazole Nitrate (Miconazole Nitrate Powder 43 Gm) 1 appln EXT PRN PRN PRN Reason: Affected Skin Folds Stop: 09/10/22 09:54 Miscellaneous (Carbohydrates For Hypoglycemia ) 15 - 30 gm PO UD PRN PRN Reason: Hypoglycemia Protocol Stop: 09/05/22 21:52 Miscellaneous (Solifenacin [Vesicare]: Order Awaiting Action) 1 each N/A QS [facility] Stop: 09/06/22 07:59 Last Admin: 08/07/22 07:45 Dose: Not Given Montelukast Sodium (Montelukast Sodium 10 Mg Tablet) 10 mg PO HS KARLA Stop: 09/05/22 21:52 Last Admin: 08/12/22 21:56 Dose: 10 mg Multivitamins/Minerals (Cerovite Adv Formula Tab) 1 tab PO QDL KARLA Stop: 09/06/22 11:29 Last Admin: 08/07/22 12:50 Dose: Not Given Pantoprazole Sodium (Pantoprazole 40 Mg Tab) 40 mg PO DAILY [facility] Stop: 09/06/22 08:59 Last Admin: 08/12/22 08:02 Dose: 40 mg Polyethylene Glycol (Polyethylene (Miralax) 17 Gm Pack) 17 gm PO DAILY PRN PRN Reason: Constipation Stop: 09/11/22 19:23 Prednisone (Prednisone 20 Mg Tab) 20 mg PO DAILY [facility] Stop: 09/12/22 08:59 Raspberry (Raspberry Syrup 5 Ml Udp) 5 ml PO DAILY KARLA Stop: 08/17/22 08:59 Last Admin: 08/12/22 08:03 Dose: 5 ml Rosuvastatin Calcium (Rosuvastatin Calcium 20 Mg Tab) 20 mg PO QAM KARLA Stop: 09/06/22 08:59 Last Admin: 08/12/22 08:02 Dose: 20 mg Senna/Docusate Sodium (Docusate Sodium/Senna 50/8.6mg Tab) 1 tab PO QAM KARLA Stop: 09/11/22 19:29 Last Admin: 08/12/22 21:58 Dose: 1 tab Thiamine HCl (Thiamine Hcl 50 Mg Tablet) 50 mg PO DAILY KARLA Stop: 09/06/22 08:59 Last Admin: 08/07/22 09:24 Dose: Not Given Triamcinolone Acetonide (Triamcinolone Acet 0.1% Cr 15 Gm Tube) 1 appln TOP BID PRN PRN Reason: AFFECTED AREA Stop: 09/05/22 21:52 Vancomycin HCl (Vancomycin Hcl 125 Mg/2.5ml Soln) 125 mg PO DAILY KARLA Stop: 09/06/22 08:59 Last Admin: 08/12/22 08:56 Dose: 125 mg Vitamin D (Cholecalciferol 1,000 Units 25 Mcg Tab) 2,000 units PO DAILY KARLA Stop: 09/06/22 08:59 Last Admin: 08/07/22 09:22 Dose: Not Given (1) Fall Encounter type: initial encounter Qualified Code(s): W19.XXXA - Unspecified fall, initial encounter
[2022-08-12] MEDS ORDERED: POLYETHYLENE (MIRALAX) 17 GM PACK PO PRN (19:24)
[2022-08-12] MEDS ORDERED: PROMETHAZINE HCL 12.5 MG in SODIUM CHLORIDE 0.9% 50 ML IV PRN (19:24)
[2022-08-12] MEDS ORDERED: POLYETHYLENE (MIRALAX) 17 GM PACK PO STA (19:27)
[2022-08-12] MEDS: MONTELUKAST SODIUM 10 MG TABLET PO SCH (21:56)
[2022-08-12] MEDS: LATANOPROST 0.005% OP SOLN 2.5 ML BTL OPB SCH (21:57)
[2022-08-12] MEDS: DOCUSATE SODIUM/SENNA 50/8.6MG TAB PO SCH (21:58)
[2022-08-12] MEDS: LANTUS PER UNIT CHARGE SQ SCH (21:58)
[2022-08-13] MEDS: HEPARIN SOD 5,000 UNIT/0.5 ML VIAL SQ SCH ×3 (05:39→20:54)
[2022-08-13] MEDS: MAGNESIUM OXIDE 400 MG TAB PO SCH ×2 (07:54→20:54)
[2022-08-13] MEDS: METOPROLOL SUCC 50MG EXT REL TAB PO SCH ×2 (07:54→20:54)
[2022-08-13] MEDS: DOCUSATE SODIUM/SENNA 50/8.6MG TAB PO SCH (07:54)
[2022-08-13] MEDS: CLOPIDOGREL BISULFATE 75 MG TAB PO SCH (07:55)
[2022-08-13] MEDS: DULoxetine HCL 60 MG CAP PO SCH (07:55)
[2022-08-13] MEDS: FLUTICASONE/VILANTEROL 200/25MCG 14 PUFFS/INHALER INH SCH (07:55)
[2022-08-13] MEDS: ROSUVASTATIN CALCIUM 20 MG TAB PO SCH (07:55)
[2022-08-13] MEDS: amLODIPine BESYLATE 5 MG TAB PO SCH (07:55)
[2022-08-13] MEDS: PANTOprazole 40 MG TAB PO SCH (07:55)
[2022-08-13] MEDS: ADVANCED PROBIOTIC 1250 MG CAPSULE PO SCH ×2 (07:56→20:53)
[2022-08-13] MEDS: RASPBERRY SYRUP 5 ML UDP PO SCH (07:56)
[2022-08-13] MEDS: CYANOCOBALAMIN (B-12) 500 MCG TABLET PO SCH (07:56)
[2022-08-13] MEDS: predniSONE 20 MG TAB PO SCH (07:57)
[2022-08-13] MEDS: VANCOMYCIN HCL 125 MG/2.5ML SOLN PO SCH (08:31)
[2022-08-13] MEDS: INSULIN ASPART PER UNIT SC SCH ×4 (08:32→21:12)
[2022-08-13] MEDS ORDERED: PHARMACY GLYCEMIC MGMT CONSULT PRN (11:55)
--- NOTE | 2022-08-13 12:09 | Hospitalist Progress Note ---
Date of Service August 13, 2022 Assessment & Plan (1) Fever: Plan: per Dr. Seymour's notes with addendum: Uncertain etiology. check repeat CXR for any developing pneumonia. This shows some atelectasis on the right middle lobe. As she has been spiking fevers, will extend coverage of her antibiotic regimen to include azithromycin. Checking LE dopplers to rule out DVT-these were negative. She has no overt skin breakdown per primary RN. She reports feeling well but still with urinary symptoms including urgency and incontinence. Repeat urinalysis reveals UTI has cleared up. secondary to UTI, possible Pneumonia completed 5 day course of Ceftriaxone for Klebsiella UTI repeat urine culture, possible Enterococcus, 20k, sensitivities pending received 3 days of Azithromycin for possible pneumonia will check CT chest without contrast Tmax yesterday 37.8 monitor closely secondary to RA flare? Dr. Seymour discussed with Rheum- Dr. Lucas Prednisone increased from 5mg to 20mg daily Plaquenil (discontinued few months ago), resumed (2) Acute metabolic encephalopathy: Plan: 2/2 UTI, likely ongoing for last couple of weeks. also offers that she gets intermittently confused on a regular basis at home. Cont antibiotics for infection. Waxing/waning mental status 08/13 better today monitor (3) UTI (urinary tract infection): Plan: per #1 (4) Hyponatremia: Plan: -- repeat BMP today (5) Fall: Plan: Progressive weakness likely related to active infection in setting of prior h/o stroke with known residual deficits. PT/OT (6) Wrist injury: Plan: L triquetrum fracture. Orthopedics is consulted. Splint in place and she appears to have pain well managed. I am holding on giving continuous acetaminophen given the level of somnolence. Would not give any narcotics or other pain meds at this time until mental status improves. continue PRN Tylenol Cont splint and ice to area TID (7) Generalized weakness: Plan: PT/OT (8) Recurrent Clostridioides difficile infection: Plan: Seen by ID on 07/18/22. Has had 3 recurrences of c difficile diarrhea. Chronically on vancomycin once daily for suppression which has been keeping her BMs to 1-2 formed stools daily. She continues on this now and will not stop it until she is off the current antibiotics. Cont vanc PO once daily. No diarrhea in last 24 hours. (9) DM type 2 (diabetes mellitus, type 2): Plan: She has a slightly elevated A1C of 7.0, likely related to ongoing prednisone use. Not taking any blood glucose lowering medications at home. Current inpatient glucose not at goal. Will start with some basal bolus insulin at this time with consistently elevated fasting glucose in the morning. 08/13 BSG 300s BMP ordered Pharmacy Glycemic Ctrl consulted (10) History of stroke: Plan: chronic, cont medical management. (11) CKD (chronic kidney disease), stage III: Plan: chronic, stable. Cont monitoring and renally dose meds as needed. (12) HTN (hypertension): Plan: chronic, no changes in BP meds. (13) Depression: Plan: chronic, stable. Cont duloxetine per home regimen. (14) DVT prophylaxis: Plan: heparin Full Code Dispo- lives with will likely need Rehab or SNF Admission and Anticipated Discharge Date Admission Date: August 06, 2022 Subjective ff up for Acute Met Enceph, UTI, etc seen resting in bed, sitting up alert, oriented x 3 very pleasant states she feels ok overall, just very tired has moderate pain on the left wrist denies headache, cough, dyspnea, chest pain, abdominal pain, problems with urination or BM, etc no other symptoms Review of Systems Review of Systems: all noted and negative except for above Physical Exam Physical Exam: General- oriented x 3, not in distress, speaks in sentences with no effort or accessory muscle use Eyes- anicteric Neck- no JVD Lungs- clear breath sounds bilaterally, no rales/wheezes Heart- normal rate, regular rhythm; no murmurs Abdomen- normal bowel sounds, nondistended, soft, nontender Extremities- no pretibial edema, no calf tenderness Left wrist: moderate warmth and tenderness, no edema, poor ROM due to pain Neuro- alert, oriented x 3; no gross focal neurologic deficits Skin- warm & dry Results & Data Results & Data ([facility]) Vital Signs (Past 12 Hours) Vital Signs Temp Pulse Resp BP Pulse Ox O2 Del Method 08/13/22 11:17 37.1 C 79 20 124/77 94 Room Air 08/13/22 08:11 36.8 C 70 20 152/78 H 97 Room Air 08/13/22 04:35 36.8 C 80 20 132/70 95 Room Air 08/12/22 23:57 36.8 C 73 18 136/66 95 Room Air (1) Fall Encounter type: initial encounter Qualified Code(s): W19.XXXA - Unspecified fall, initial encounter
[2022-08-13] MEDS ORDERED: LANTUS PER UNIT CHARGE SQ ONE (13:15)
--- NOTE | 2022-08-13 13:24 | Pharmacy Report ---
Pharmacy Glycemic Short Note 2 - Date of Service August 13, 2022 - Glycemic Short BSG Results (Last 24 hours): 08/12/22 08/12/22 08/13/22 16:49 20:15 08:07 POC Glucose 135 H 153 H 117 H 08/13/22 08/13/22 08/13/22 11:48 11:49 11:50 POC Glucose 310 H* 333 H* 317 H* OUTPATIENT ANTIDIABETIC REGIMEN: * none ASSESSMENT: * Patient is 76 y/o F admitted for UTI/pneumonia. Pharmacy is consulted for hyperglycemia management * BSGs in the past 24 hours have been within goal range, 10 units of insulin given yesterday of which 10 were basal * Lunchtime BSG of 310/333/317 * Patient on 5mg prednisone at home, increased to 20mg yesterday afternoon * Will give nighttime basal insulin now x1 (hold HS dose), tighten Novolog parameters, and monitor for continued hyperglycemia PLAN FOR INPATIENT GLYCEMIC CONTROL: * Hold outpatient oral diabetes medications * Basal insulin * Lantus 10 units SQ x1 now (will reassess basal insulin need in AM) * Bolus insulin * NovoLog per scale ACHS or Q6hrs while NPO * Goal Range: Low 120 mg/dL - High 160 mg/dL * Correction Factor: 30 mg/dL/unit * Nutritional / Prandial insulin per carb ratio of 1 unit per 10 grams CHO consumed
--- NOTE | 2022-08-13 13:37 | CT Scan Report ---
CT chest diagnostic wo con CT DOSE: 512.17 mGy.cm CLINICAL HISTORY: 76 years-old Female with r/o pneumonia. Acute shortness of breath TECHNIQUE: Multiaxial CT images of the chest were performed without contrast. A dose lowering techni que was utilized adhering to the principles of ALARA. COMPARISON: Chest radiograph 08/09/2022, CTA chest 08/06/2013 FINDINGS: Cardiomegaly without pericardial effusion. Moderate coronary artery calcifications. Atheros clerosis of the thoracic aorta. Dilated pulmonary artery measures up to 3.3 cm suggestive of pulmonar y arterial hypertension. No lymphadenopathy identified. Small right greater than left pleural effusions. No pneumothorax or overt pulmonary edema. Minimal de pendent subsegmental bibasilar atelectasis. There are no suspicious pulmonary nodules or masses ident ified. Central airways are patent. The spleen appears be upper limits of normal in size. Cholecystectomy. Exophytic 1.4 cm cyst of the s uperior pole right kidney. Ill-defined indeterminate 2.0 cm hypodensity of the right hepatic lobe, im age 34 series 2. Unremarkable soft tissues. Degenerative changes of the spine and left shoulder. Reve rse right shoulder total joint arthroplasty. No acute fracture identified. Chronic tearing mild super ior endplate compression of the T2-T5 segments. IMPRESSION: 1. Trace pleural effusions with minimal dependent bibasilar atelectasis. 2. No lymphadenopathy or airspace consolidation typical for pneumonia. 3. Mild cardiomegaly with suggestion of pulmonary arterial hypertension. 4. Artifact versus ill-defined indeterminate lesion of the right hepatic lobe measures 2.0 cm. Attent ion at follow-up recommended. ACT 112: Negative or not required by law. Electronically signed by: Brant Mccoy M.D. 08/13/2022 1:36 PM
[2022-08-13 18:33] LABS: BUN Creatinine Ratio 26.3 (10-20); Calcium 9.4 mg/dl (8.5-10.1); Creatinine Clr Calc Pharmacy 48.4 ml/min; Est GFR (African American) 84.2 ml/min; Est GFR (Non-African American) 72.6 ml/min; Potassium 4.2 mmol/L (3.5-5.1)
[2022-08-13] MEDS: HYDROXYCHLOROQUINE SULFATE 200 MG TAB PO SCH (20:53)
[2022-08-13] MEDS: MONTELUKAST SODIUM 10 MG TABLET PO SCH (20:54)
[2022-08-13] MEDS: LATANOPROST 0.005% OP SOLN 2.5 ML BTL OPB SCH (20:55)
[2022-08-13] MEDS: NITROFURANTOIN MONOHYDRATE 100 MG CAP PO SCH (20:55)
[2022-08-14] MEDS: HEPARIN SOD 5,000 UNIT/0.5 ML VIAL SQ SCH ×3 (05:38→21:35)
[2022-08-14] MEDS: INSULIN ASPART PER UNIT SC SCH ×4 (08:30→21:38)
[2022-08-14] MEDS: FLUTICASONE/VILANTEROL 200/25MCG 14 PUFFS/INHALER INH SCH (10:02)
[2022-08-14] MEDS: ADVANCED PROBIOTIC 1250 MG CAPSULE PO SCH ×2 (10:02→21:34)
[2022-08-14] MEDS: LANTUS PER UNIT CHARGE SQ SCH (10:02)
[2022-08-14] MEDS: MAGNESIUM OXIDE 400 MG TAB PO SCH ×2 (10:03→21:34)
[2022-08-14] MEDS: METOPROLOL SUCC 50MG EXT REL TAB PO SCH ×2 (10:04→21:34)
[2022-08-14] MEDS: VANCOMYCIN HCL 125 MG/2.5ML SOLN PO SCH (10:05)
[2022-08-14] MEDS: RASPBERRY SYRUP 5 ML UDP PO SCH (10:05)
[2022-08-14] MEDS: ROSUVASTATIN CALCIUM 20 MG TAB PO SCH (10:06)
[2022-08-14] MEDS: NITROFURANTOIN MONOHYDRATE 100 MG CAP PO SCH ×2 (10:06→21:34)
[2022-08-14] MEDS: predniSONE 20 MG TAB PO SCH (10:07)
[2022-08-14] MEDS: PANTOprazole 40 MG TAB PO SCH (10:07)
[2022-08-14] MEDS: amLODIPine BESYLATE 5 MG TAB PO SCH (10:07)
[2022-08-14] MEDS: CLOPIDOGREL BISULFATE 75 MG TAB PO SCH (10:08)
[2022-08-14] MEDS: DOCUSATE SODIUM/SENNA 50/8.6MG TAB PO SCH (10:08)
[2022-08-14] MEDS: DULoxetine HCL 60 MG CAP PO SCH (10:08)
[2022-08-14 10:45] LABS: BUN Creatinine Ratio 22.9 (10-20); Calcium 9.6 mg/dl (8.5-10.1); Creatinine Clr Calc Pharmacy 54.9 ml/min; Est GFR (African American) 98.9 ml/min; Est GFR (Non-African American) 85.4 ml/min
--- NOTE | 2022-08-14 14:19 | Pharmacy Report ---
Pharmacy Glycemic Short Note 2 - Date of Service August 14, 2022 - Glycemic Short BSG Results (Last 24 hours): 08/13/22 08/13/22 08/13/22 16:20 17:36 20:27 Glucose 159 H POC Glucose 191 H 153 H 08/14/22 08/14/22 08/14/22 07:29 09:47 11:26 Glucose 134 H POC Glucose 129 H 213 H OUTPATIENT ANTIDIABETIC REGIMEN: * none ASSESSMENT: 08/14 * Patient received 18 units of insulin yesterday, of which 10 were basal * Slight increase to 12 units of Lantus this AM * Mealtime BSGs still elevated, but downtrending, continue current Novolog parameters 08/13 * Patient is 76 y/o F admitted for UTI/pneumonia. Pharmacy is consulted for hyperglycemia management * BSGs in the past 24 hours have been within goal range, 10 units of insulin given yesterday of which 10 were basal * Lunchtime BSG of 310/333/317 * Patient on 5mg prednisone at home, increased to 20mg yesterday afternoon * Will give nighttime basal insulin now x1 (hold HS dose), tighten Novolog parameters, and monitor for continued hyperglycemia PLAN FOR INPATIENT GLYCEMIC CONTROL: * Hold outpatient oral diabetes medications * Basal insulin * Lantus 10 units SQ x1 now (will reassess basal insulin need in AM) * Bolus insulin * NovoLog per scale ACHS or Q6hrs while NPO * Goal Range: Low 120 mg/dL - High 160 mg/dL * Correction Factor: 30 mg/dL/unit * Nutritional / Prandial insulin per carb ratio of 1 unit per 10 grams CHO consumed
[2022-08-14] MEDS: ACETAMINOPHEN 325 MG TAB PO PRN (14:56)
--- NOTE | 2022-08-14 17:13 | Hospitalist Progress Note ---
Date of Service August 14, 2022 Assessment & Plan (1) Fever: Plan: per Dr. Seymour's notes with addendum: Uncertain etiology. check repeat CXR for any developing pneumonia. This shows some atelectasis on the right middle lobe. As she has been spiking fevers, will extend coverage of her antibiotic regimen to include azithromycin. Checking LE dopplers to rule out DVT-these were negative. She has no overt skin breakdown per primary RN. She reports feeling well but still with urinary symptoms including urgency and incontinence. Repeat urinalysis reveals UTI has cleared up. secondary to UTI, possible Pneumonia completed 5 day course of Ceftriaxone for Klebsiella UTI repeat urine culture, possible Enterococcus, 20k, sensitive to Macrobid received 3 days of Azithromycin for possible pneumonia will check CT chest without contrast: No lymphadenopathy or airspace consolidation typical for pneumonia. Afebrile since yesterday Currently on Macrobid twice daily for Enterococcus UTI, to complete 5-day course secondary to RA flare? Dr. Seymour discussed with Rheum- Dr. Lucas Prednisone increased from 5mg to 20mg daily Plaquenil (discontinued few months ago), resumed Denies arthralgia except for left wrist with known fracture secondary to fall (2) Acute metabolic encephalopathy: Plan: 2/2 UTI, likely ongoing for last couple of weeks. also offers that she gets intermittently confused on a regular basis at home. Cont antibiotics for infection. Waxing/waning mental status 08/14 Awake, alert, oriented x3 (3) UTI (urinary tract infection): Plan: per #1 (4) Hyponatremia: Plan: -- repeat BMP today (5) Fall: Plan: Progressive weakness likely related to active infection in setting of prior h/o stroke with known residual deficits. PT/OT (6) Wrist injury: Plan: L triquetrum fracture. Orthopedics is consulted. Splint in place and she appears to have pain well managed. I am holding on giving continuous acetaminophen given the level of somnolence. continue PRN Tylenol Cont splint and ice to area TID (7) Generalized weakness: Plan: PT/OT (8) Recurrent Clostridioides difficile infection: Plan: Seen by ID on 07/18/22. Has had 3 recurrences of c difficile diarrhea. Chronically on vancomycin once daily for suppression which has been keeping her BMs to 1-2 formed stools daily. She continues on this now and will not stop it until she is off the current antibiotics. Cont vanc PO once daily. No diarrhea in last 24 hours. (9) DM type 2 (diabetes mellitus, type 2): Plan: She has a slightly elevated A1C of 7.0, likely related to ongoing prednisone use. Not taking any blood glucose lowering medications at home. Current inpatient glucose not at goal. Will start with some basal bolus insulin at this time with consistently elevated fasting glucose in the morning. 08/13 BSG 300s BMP ordered Pharmacy Glycemic Ctrl consulted (10) History of stroke: Plan: chronic, cont medical management. (11) CKD (chronic kidney disease), stage III: Plan: chronic, stable. Cont monitoring and renally dose meds as needed. (12) HTN (hypertension): Plan: chronic, no changes in BP meds. (13) Depression: Plan: chronic, stable. Cont duloxetine per home regimen. (14) DVT prophylaxis: Plan: heparin Full Code Dispo- lives with Anticipate discharge to intermediate facility tomorrow if patient remains afebrile Admission and Anticipated Discharge Date Admission Date: August 06, 2022 Subjective Follow-up for fever secondary to pneumonia, UTI, possible RA flareup, etc. Seen sitting up in bed, comfortable, not distressed States she feels improved today compared to yesterday Denies cough, abdominal pain, problems with urination Denies fevers or chills Left wrist still painful, no other joint pains No other symptoms Review of Systems Review of Systems: all noted and negative except for above Physical Exam Physical Exam: General- oriented x 3, not in distress, speaks in sentences with no effort or accessory muscle use Eyes- anicteric Neck- no JVD Lungs- clear breath sounds bilaterally, crackles, no wheezing, good air entry bilaterally Heart- normal rate, regular rhythm; no murmurs Abdomen- normal bowel sounds, nondistended, soft, nontender Extremities- no pretibial edema, no calf tenderness Left wrist: Splint removed, no erythema/warmth/edema, positive moderate tenderness Neuro- alert, oriented x 3; no gross focal neurologic deficits Skin- warm & dry Results & Data Results & Data ([facility]) Vital Signs (Past 12 Hours) Vital Signs Temp Pulse Pulse Resp BP Pulse Ox O2 Del Method 08/14/22 16:20 37.7 C H 08/14/22 14:02 90 08/14/22 14:54 39.2 C H 84 20 146/77 H 92 Room Air 08/14/22 11:30 36.8 C 74 18 152/78 H 96 Room Air 08/14/22 07:00 77 08/14/22 07:24 37.4 C 77 16 161/81 H 95 Room Air all noted and reviewed including below (1) Fall Encounter type: initial encounter Qualified Code(s): W19.XXXA - Unspecified fall, initial encounter
[2022-08-14] MEDS: SODIUM CHLORIDE 0.9% 1000ML 1,000 ML IV SCH (19:00)
[2022-08-14] MEDS: HYDROXYCHLOROQUINE SULFATE 200 MG TAB PO SCH (21:33)
[2022-08-14] MEDS: MONTELUKAST SODIUM 10 MG TABLET PO SCH (21:34)
[2022-08-14] MEDS: LATANOPROST 0.005% OP SOLN 2.5 ML BTL OPB SCH (21:35)
[2022-08-15] MEDS: HEPARIN SOD 5,000 UNIT/0.5 ML VIAL SQ SCH ×3 (05:42→21:02)
[2022-08-15 07:25] LABS: BUN Creatinine Ratio 32.9 (10-20); Calcium 9.5 mg/dl (8.5-10.1); Creatinine Clr Calc Pharmacy 51.1 ml/min; Est GFR (African American) 89.6 ml/min; Est GFR (Non-African American) 77.3 ml/min; Potassium 3.8 mmol/L (3.5-5.1)
[2022-08-15] MEDS: INSULIN ASPART PER UNIT SC SCH ×4 (08:17→21:04)
[2022-08-15] MEDS: RASPBERRY SYRUP 5 ML UDP PO SCH (08:18)
[2022-08-15] MEDS: VANCOMYCIN HCL 125 MG/2.5ML SOLN PO SCH (08:18)
[2022-08-15] MEDS: SODIUM CHLORIDE 0.9% 1000ML 1,000 ML IV SCH ×2 (08:18→21:03)
[2022-08-15] MEDS: LANTUS PER UNIT CHARGE SQ SCH (08:18)
[2022-08-15] MEDS: FLUTICASONE/VILANTEROL 200/25MCG 14 PUFFS/INHALER INH SCH (08:19)
[2022-08-15] MEDS: CLOPIDOGREL BISULFATE 75 MG TAB PO SCH (08:20)
[2022-08-15] MEDS: predniSONE 20 MG TAB PO SCH (08:20)
[2022-08-15] MEDS: METOPROLOL SUCC 50MG EXT REL TAB PO SCH ×2 (08:20→21:02)
[2022-08-15] MEDS: DULoxetine HCL 60 MG CAP PO SCH (08:20)
[2022-08-15] MEDS: ROSUVASTATIN CALCIUM 20 MG TAB PO SCH (08:20)
[2022-08-15] MEDS: NITROFURANTOIN MONOHYDRATE 100 MG CAP PO SCH ×2 (08:20→21:01)
[2022-08-15] MEDS: amLODIPine BESYLATE 5 MG TAB PO SCH (08:20)
[2022-08-15] MEDS: CYANOCOBALAMIN (B-12) 500 MCG TABLET PO SCH (08:21)
[2022-08-15] MEDS: MAGNESIUM OXIDE 400 MG TAB PO SCH ×2 (08:21→21:01)
[2022-08-15] MEDS: DOCUSATE SODIUM/SENNA 50/8.6MG TAB PO SCH (08:21)
[2022-08-15] MEDS: ADVANCED PROBIOTIC 1250 MG CAPSULE PO SCH ×2 (08:21→21:01)
[2022-08-15] MEDS: PANTOprazole 40 MG TAB PO SCH (08:52)
[2022-08-15 09:25] LABS: Basophils # (auto) 0.02 K/uL (0-0.2); Basophils % (auto) 0.2 %; Hematocrit (blood only) 32.3 % (34.1-44.9); Hemoglobin 10.9 g/dl (12.0-16.0); Lymphocytes # (auto) 1.08 K/uL (1.2-3.4); Lymphocytes % (auto) 10.3 %; Mean Corpuscular Hemoglobin 27.5 pg (25.0-34.0); Mean Corpuscular Hgb Conc 33.7 g/dL (32.0-36.0); Mean Corpuscular Volume 81.4 fL (80.0-100.0); Mean Platelet Volume 8.3 fL (9.4-12.3); Monocytes # (auto) 0.66 K/uL (0.24-0.82); Monocytes % (auto) 6.3 %; Neutrophils # (auto) 8.62 K/uL (1.4-6.5); Neutrophils % (auto) 82.2 %; Platelet Count 373 K/uL (130-400); RDW Coefficient of Variation 15.9 % (11.5-14.5); Red Blood Count 3.97 M/uL (3.93-5.22); White Blood Count 10.48 K/ul (4.8-10.8)
[2022-08-15 15:11] LABS: BUN Creatinine Ratio 35.1 (10-20); Calcium 9.3 mg/dl (8.5-10.1); Creatinine Clr Calc Pharmacy 50.4 ml/min; Est GFR (African American) 88.2 ml/min; Est GFR (Non-African American) 76.1 ml/min; Potassium 3.9 mmol/L (3.5-5.1)
--- NOTE | 2022-08-15 17:49 | Hospitalist Progress Note ---
Date of Service August 15, 2022 Assessment & Plan (1) Fever: Plan: per Dr. Seymour's notes with addendum: Uncertain etiology. check repeat CXR for any developing pneumonia. This shows some atelectasis on the right middle lobe. As she has been spiking fevers, will extend coverage of her antibiotic regimen to include azithromycin. Checking LE dopplers to rule out DVT-these were negative. She has no overt skin breakdown per primary RN. She reports feeling well but still with urinary symptoms including urgency and incontinence. Repeat urinalysis reveals UTI has cleared up. secondary to UTI, possible Pneumonia completed 5 day course of Ceftriaxone for Klebsiella UTI repeat urine culture, possible Enterococcus, 20k, sensitive to Macrobid received 3 days of Azithromycin for possible pneumonia CT chest without contrast: No lymphadenopathy or airspace consolidation typical for pneumonia. Positive fever spike of 39.2 yesterday None since then so far Currently on Macrobid twice daily for Enterococcus UTI, to complete 5-day course No other source of infection identified at this time secondary to RA flare? Dr. Seymour discussed with Rheum- Dr. Lucas Prednisone increased from 5mg to 20mg daily Plaquenil (discontinued few months ago), resumed Denies arthralgia except for left wrist with known fracture secondary to fall (2) Acute metabolic encephalopathy: Plan: 2/2 UTI, likely ongoing for last couple of weeks. also offers that she gets intermittently confused on a regular basis at home. Cont antibiotics for infection. Waxing/waning mental status 12/ Awake, alert, oriented x3 (3) UTI (urinary tract infection): Plan: per #1 (4) Hyponatremia: Plan: -- Sodium still 129, continue IV fluid (5) Fall: Plan: Progressive weakness likely related to active infection in setting of prior h/o stroke with known residual deficits. PT/OT (6) Wrist injury: Plan: L triquetrum fracture. Orthopedics is consulted. Splint in place and she appears to have pain well managed. I am holding on giving continuous acetaminophen given the level of somnolence. continue PRN Tylenol Cont splint and ice to area TID (7) Generalized weakness: Plan: PT/OT (8) Recurrent Clostridioides difficile infection: Plan: Seen by ID on 07/18/22. Has had 3 recurrences of c difficile diarrhea. Chronically on vancomycin once daily for suppression which has been keeping her BMs to 1-2 formed stools daily. She continues on this now and will not stop it until she is off the current antibiotics. Cont vanc PO once daily. No diarrhea in last 24 hours. (9) DM type 2 (diabetes mellitus, type 2): Plan: She has a slightly elevated A1C of 7.0, likely related to ongoing prednisone use. Not taking any blood glucose lowering medications at home. Current inpatient glucose not at goal. Will start with some basal bolus insulin at this time with consistently elevated fasting glucose in the morning. BSG 129-140 Pharmacy Glycemic Ctrl consulted (10) History of stroke: Plan: chronic, cont medical management. (11) CKD (chronic kidney disease), stage III: Plan: chronic, stable. Cont monitoring and renally dose meds as needed. (12) HTN (hypertension): Plan: chronic, no changes in BP meds. (13) Depression: Plan: chronic, stable. Cont duloxetine per home regimen. (14) DVT prophylaxis: Plan: heparin Full Code Dispo- lives with Anticipate discharge to intermediate facility tomorrow if patient remains afebrile Admission and Anticipated Discharge Date Admission Date: August 06, 2022 Subjective Follow-up for encephalopathy, pneumonia, UTI, etc. Seen resting in bed, sleeping but easily awakened States she feels better today compared to yesterday Has mild headache, intermittent Reports some mild cough Denies abdominal pain, urinary symptoms No other symptoms Review of Systems Review of Systems: all noted and negative except for above Physical Exam Physical Exam: General- oriented x 3, not in distress, speaks in sentences with no effort or accessory muscle use Eyes- anicteric Neck- no JVD Lungs- clear breath sounds, no crackles or wheezing bilaterally Heart- normal rate, regular rhythm; no murmurs Abdomen- normal bowel sounds, nondistended, soft, nontender Extremities- no pretibial edema, no calf tenderness Left wrist-splint in place No edema noted Neuro- alert, oriented x 3; no gross focal neurologic deficits Skin- warm & dry Results & Data Results & Data ([facility]) Vital Signs (Past 12 Hours) Vital Signs Temp Pulse Pulse Resp BP Pulse Ox O2 Del Method 08/15/22 15:29 36.7 C 72 20 151/69 H 95 Room Air 08/15/22 13:59 76 12/02/22 07:40 Room Air 08/15/22 10:59 36.6 C 71 20 135/74 95 Room Air 08/15/22 07:46 37.1 C 66 20 151/77 H 97 Room Air 08/15/22 07:00 66 all noted and reviewed including below (1) Fall Encounter type: initial encounter Qualified Code(s): W19.XXXA - Unspecified fall, initial encounter
[2022-08-15] MEDS: HYDROXYCHLOROQUINE SULFATE 200 MG TAB PO SCH (21:00)
[2022-08-15] MEDS: MONTELUKAST SODIUM 10 MG TABLET PO SCH (21:01)
[2022-08-15] MEDS: LATANOPROST 0.005% OP SOLN 2.5 ML BTL OPB SCH (21:02)
[2022-08-16] MEDS: HEPARIN SOD 5,000 UNIT/0.5 ML VIAL SQ SCH ×3 (05:36→21:25)
[2022-08-16] MEDS: INSULIN ASPART PER UNIT SC SCH ×4 (09:05→21:24)
[2022-08-16] MEDS: VANCOMYCIN HCL 125 MG/2.5ML SOLN PO SCH (09:05)
[2022-08-16] MEDS: PANTOprazole 40 MG TAB PO SCH (09:06)
[2022-08-16] MEDS: METOPROLOL SUCC 50MG EXT REL TAB PO SCH ×2 (09:06→21:26)
[2022-08-16] MEDS: ADVANCED PROBIOTIC 1250 MG CAPSULE PO SCH ×2 (09:06→21:26)
[2022-08-16] MEDS: DULoxetine HCL 60 MG CAP PO SCH (09:06)
[2022-08-16] MEDS: ROSUVASTATIN CALCIUM 20 MG TAB PO SCH (09:06)
[2022-08-16] MEDS: predniSONE 20 MG TAB PO SCH (09:06)
[2022-08-16] MEDS: CLOPIDOGREL BISULFATE 75 MG TAB PO SCH (09:06)
[2022-08-16] MEDS: MAGNESIUM OXIDE 400 MG TAB PO SCH ×2 (09:06→21:25)
[2022-08-16] MEDS: NITROFURANTOIN MONOHYDRATE 100 MG CAP PO SCH ×2 (09:06→21:25)
[2022-08-16] MEDS: DOCUSATE SODIUM/SENNA 50/8.6MG TAB PO SCH (09:06)
[2022-08-16] MEDS: amLODIPine BESYLATE 5 MG TAB PO SCH (09:06)
[2022-08-16] MEDS: FLUTICASONE/VILANTEROL 200/25MCG 14 PUFFS/INHALER INH SCH (09:07)
[2022-08-16] MEDS: RASPBERRY SYRUP 5 ML UDP PO SCH (09:07)
[2022-08-16] MEDS: LANTUS PER UNIT CHARGE SQ SCH (09:07)
[2022-08-16 09:53] LABS: BUN Creatinine Ratio 30.3 (10-20); Calcium 9.3 mg/dl (8.5-10.1); Creatinine Clr Calc Pharmacy 59.1 ml/min; Est GFR (African American) 100.9 ml/min; Potassium 3.8 mmol/L (3.5-5.1)
[2022-08-16] MEDS: SODIUM CHLORIDE 0.9% 1000ML 1,000 ML IV SCH (10:10)
--- NOTE | 2022-08-16 18:00 | Hospitalist Progress Note ---
Date of Service August 16, 2022 Assessment & Plan (1) Fever: Plan: per Dr. Seymour's notes with addendum: Uncertain etiology. check repeat CXR for any developing pneumonia. This shows some atelectasis on the right middle lobe. As she has been spiking fevers, will extend coverage of her antibiotic regimen to include azithromycin. Checking LE dopplers to rule out DVT-these were negative. She has no overt skin breakdown per primary RN. She reports feeling well but still with urinary symptoms including urgency and incontinence. Repeat urinalysis reveals UTI has cleared up. secondary to UTI, possible Pneumonia completed 5 day course of Ceftriaxone for Klebsiella UTI repeat urine culture, possible Enterococcus, 20k, sensitive to Macrobid received 3 days of Azithromycin for possible pneumonia CT chest without contrast: No lymphadenopathy or airspace consolidation typical for pneumonia. Afebrile x2 days Currently on Macrobid twice daily for Enterococcus UTI, to complete 5-day course No other source of infection identified at this time secondary to RA flare? Dr. Seymour discussed with Rheum- Dr. Lucas Prednisone increased from 5mg to 20mg daily Plaquenil (discontinued few months ago), resumed Denies arthralgia except for left wrist with known fracture secondary to fall -- Reduce prednisone to 15 mg daily (2) Acute metabolic encephalopathy: Plan: 2/2 UTI, likely ongoing for last couple of weeks. also offers that she gets intermittently confused on a regular basis at home. Cont antibiotics for infection. Waxing/waning mental status 12/ Patient got mildly confused again this morning Seems to be improving Reduce prednisone to 15 mg daily Monitor closely (3) UTI (urinary tract infection): Plan: per #1 (4) Hyponatremia: Plan: -- Sodium 130 monitor (5) Fall: Plan: Progressive weakness likely related to active infection in setting of prior h/o stroke with known residual deficits. PT/OT (6) Wrist injury: Plan: L triquetrum fracture. Orthopedics is consulted. Splint in place and she appears to have pain well managed. I am holding on giving continuous maricel taminophen given the level of somnolence. continue PRN Tylenol Cont splint and ice to area TID (7) Generalized weakness: Plan: PT/OT (8) Recurrent Clostridioides difficile infection: Plan: Seen by ID on 07/18/22. Has had 3 recurrences of c difficile diarrhea. C hronically on vancomycin once daily for suppression which has been keeping her BMs to 1-2 formed stools daily. She continues on this now and will not stop it until she is off the current antibiotics. Cont vanc PO once daily. No diarrhea in last 24 hours. (9) DM type 2 (diabetes mellitus, type 2): Plan: She has a slightly elevated A1C of 7.0, likely related to ongoing prednisone use. Not taking any blood glucose lowering medications at home. Pharmacy Glycemic Ctrl consulted (10) History of stroke: Plan: chronic, cont medical management. (11) CKD (chronic kidney disease), stage III: Plan: chronic, stable. Cont monitoring and renally dose meds as needed. (12) HTN (hypertension): Plan: chronic, no changes in BP meds. (13) Depression: Plan: chronic, stable. Cont duloxetine per home regimen. (14) DVT prophylaxis: Plan: heparin Full Code Dispo- lives with Admission and Anticipated Discharge Date Admission Date: August 06, 2022 Subjective Follow-up for fever, UTI, etc. Seen resting in bed, comfortable, no distress Noted to be confused earlier today per RN in the morning On exam patient seen sitting up, having yogurt and boost Occasionally gets confused but mostly oriented x2 States she feels fine overall No shortness of breath, cough No abdominal pain, problems with urination No other symptom Review of Systems Review of Systems: all noted and negative except for above Physical Exam Physical Exam: General- oriented x 2, not in distress, speaks in sentences with no effort or accessory muscle use Eyes- anicteric Neck- no JVD Lungs- clear breath sounds bilaterally, no crackles Heart- normal rate, regular rhythm; no murmurs Abdomen- normal bowel sounds, nondistended, soft, no tenderness Extremities- no pretibial edema, no calf tenderness Neuro- alert, oriented x 3; no gross focal neurologic deficits Skin- warm & dry Results & Data Results & Data ([facility]) Vital Signs (Past 12 Hours) Vital Signs Temp Pulse Pulse Resp BP Pulse Ox O2 Del Method 08/16/22 16:30 82 08/16/22 07:35 69 08/16/22 16:00 37.3 C 76 20 138/70 95 Room Air 08/16/22 11:34 37.6 C H 76 18 150/72 H 94 Room Air 08/16/22 07:56 37.2 C 70 18 159/84 H 93 Room Air all noted and reviewed including below (1) Fall Encounter type: initial encounter Qualified Code(s): W19.XXXA - Unspecified fall, initial encounter
[2022-08-16] MEDS: HYDROXYCHLOROQUINE SULFATE 200 MG TAB PO SCH (21:25)
[2022-08-16] MEDS: LATANOPROST 0.005% OP SOLN 2.5 ML BTL OPB SCH (21:25)
[2022-08-16] MEDS: MONTELUKAST SODIUM 10 MG TABLET PO SCH (21:25)
[2022-08-17] MEDS: HEPARIN SOD 5,000 UNIT/0.5 ML VIAL SQ SCH ×3 (05:42→21:53)
[2022-08-17] MEDS: amLODIPine BESYLATE 5 MG TAB PO SCH (07:54)
[2022-08-17] MEDS: ROSUVASTATIN CALCIUM 20 MG TAB PO SCH (07:54)
[2022-08-17] MEDS: PANTOprazole 40 MG TAB PO SCH (07:54)
[2022-08-17] MEDS: ADVANCED PROBIOTIC 1250 MG CAPSULE PO SCH ×2 (07:54→21:52)
[2022-08-17] MEDS: NITROFURANTOIN MONOHYDRATE 100 MG CAP PO SCH ×2 (07:54→21:52)
[2022-08-17] MEDS: DOCUSATE SODIUM/SENNA 50/8.6MG TAB PO SCH (07:55)
[2022-08-17] MEDS: MAGNESIUM OXIDE 400 MG TAB PO SCH ×2 (07:55→21:52)
[2022-08-17] MEDS: FLUTICASONE/VILANTEROL 200/25MCG 14 PUFFS/INHALER INH SCH (07:55)
[2022-08-17] MEDS: METOPROLOL SUCC 50MG EXT REL TAB PO SCH ×2 (07:55→21:52)
[2022-08-17] MEDS: CLOPIDOGREL BISULFATE 75 MG TAB PO SCH (07:55)
[2022-08-17] MEDS: DULoxetine HCL 60 MG CAP PO SCH (07:55)
[2022-08-17] MEDS: predniSONE 10 MG TABLET PO SCH (07:56)
[2022-08-17 08:16] LABS: BUN Creatinine Ratio 40.6 (10-20); Calcium 9.4 mg/dl (8.5-10.1); Creatinine Clr Calc Pharmacy 56.5 ml/min; Est GFR (African American) 99.4 ml/min; Est GFR (Non-African American) 85.8 ml/min; Potassium 3.8 mmol/L (3.5-5.1)
[2022-08-17] MEDS: INSULIN ASPART PER UNIT SC SCH ×3 (09:23→17:28)
[2022-08-17] MEDS: LANTUS PER UNIT CHARGE SQ SCH (09:24)
[2022-08-17] MEDS: RASPBERRY SYRUP 5 ML UDP PO SCH (10:52)
[2022-08-17] MEDS: VANCOMYCIN HCL 125 MG/2.5ML SOLN PO SCH (10:52)
--- NOTE | 2022-08-17 12:28 | XRay Report ---
XR cervical spine 2 or 3V CLINICAL HISTORY: Neck pain, fall, r/o fracture COMPARISON STUDY: Cervical spine MRI 07/24/2018. FINDINGS: The cervical spine is visualized from C1 through T1. The patient's shoulders partially obsc ure the mid to lower cervical spine resulting in suboptimal evaluation. However, no definite fracture or subluxation. Degenerative changes again noted. Prevertebral soft tissues and the C1-C2 interval a ppear intact. 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 IMPRESSION: No definite fracture or subluxation within the cervical spine by conventional radiograph ic technique. ACT 112: Negative or not required by law. Electronically signed by: Peter Olivarez M.D. 08/17/2022 12:26 PM
--- NOTE | 2022-08-17 12:30 | XRay Report ---
XR chest 1V portable HISTORY: Fall. Dyspnea. r/o pulmonary edema COMPARISON: Chest 08/09/2022. FINDINGS: There are low lung volumes.. No pneumothorax. No pleural effusions. No focal lung consolida tions to suggest a pneumonia. No evidence for pulmonary edema. The cardiac silhouette remains mildly enlarged. Prior cholecystectomy. There is a right shoulder prosthesis again noted. Advanced degenerat tesfaye changes within the left shoulder persist. IMPRESSION: No change in the low lung volumes and mild cardiomegaly. ACT 112: Negative or not required by law. Electronically signed by: Peter Olivarez M.D. 08/17/2022 12:28 PM
--- NOTE | 2022-08-17 15:37 | Hospitalist Progress Note ---
Date of Service August 17, 2022 Assessment & Plan (1) Fever: Plan: per Dr. Seymour's notes with addendum: Uncertain etiology. check repeat CXR for any developing pneumonia. This shows some atelectasis on the right middle lobe. As she has been spiking fevers, will extend coverage of her antibiotic regimen to include azithromycin. Checking LE dopplers to rule out DVT-these were negative. She has no overt skin breakdown per primary RN. She reports feeling well but still with urinary symptoms including urgency and incontinence. Repeat urinalysis reveals UTI has cleared up. secondary to UTI, possible Pneumonia completed 5 day course of Ceftriaxone for Klebsiella UTI repeat urine culture, possible Enterococcus, 20k, sensitive to Macrobid received 3 days of Azithromycin for possible pneumonia CT chest without contrast: No lymphadenopathy or airspace consolidation typical for pneumonia. Afebrile x 3 days Currently on Macrobid twice daily for Enterococcus UTI, to complete 7-day course No other source of infection identified at this time secondary to RA flare? Dr. Seymour discussed with Rheum- Dr. Lucas Prednisone increased from 5mg to 20mg daily Plaquenil (discontinued few months ago), resumed Denies arthralgia except for left wrist with known fracture secondary to fall -- Reduce prednisone to 10 mg daily (2) Acute metabolic encephalopathy: Plan: 2/2 UTI, likely ongoing for last couple of weeks. also offers that she gets intermittently confused on a regular basis at home. Cont antibiotics for infection. Waxing/waning mental status 12/4 MS better today Monitor closely (3) UTI (urinary tract infection): Plan: per #1 (4) Hyponatremia: Plan: -- Sodium 130 monitor (5) Fall: Plan: Progressive weakness likely related to active infection in setting of prior h/o stroke with known residual deficits. PT/OT (6) Wrist injury: Plan: L triquetrum fracture. Orthopedics is consulted. Splint in place and she appears to have pain well managed. I am holding on giving continuous acetaminophen given the level of somnolence. continue PRN Tylenol Cont splint and ice to area TID (7) Generalized weakness: Plan: PT/OT (8) Recurrent Clostridioides difficile infection: Plan: Seen by ID on 07/18/22. Has had 3 recurrences of c difficile diarrhea. Chronically on vancomycin once daily for suppression which has been keeping her BMs to 1-2 formed stools daily. She continues on this now and will not stop it until she is off the current antibiotics. Cont vanc PO once daily. No diarrhea in last 24 hours. (9) DM type 2 (diabetes mellitus, type 2): Plan: She has a slightly elevated A1C of 7.0, likely related to ongoing prednisone use. Not taking any blood glucose lowering medications at home. Pharmacy Glycemic Ctrl consulted (10) History of stroke: Plan: chronic, cont medical management. (11) CKD (chronic kidney disease), stage III: Plan: chronic, stable. Cont monitoring and renally dose meds as needed. (12) HTN (hypertension): Plan: chronic, no changes in BP meds. (13) Depression: Plan: chronic, stable. Cont duloxetine per home regimen. (14) DVT prophylaxis: Plan: heparin Full Code Dispo- lives with Admission and Anticipated Discharge Date Admission Date: August 06, 2022 Subjective ff up for UTI, etc seen resting in bed, comfortable somewhat sleepy but oriented x 3, answers questions appropriately states she feels tired but ok denies headache, has some L neck pain denies cough, SOB no abdominal pain no other symptoms Review of Systems Review of Systems: all noted and negative except for above Physical Exam Physical Exam: General- oriented x 3, not in distress, speaks in sentences with no effort or accessory muscle use Eyes- anicteric Neck- no JVD Lungs- clear BS BL Heart- normal rate, regular rhythm; no murmurs Abdomen- normal bowel sounds, nondistended, soft, nontender Extremities- no pretibial edema, no calf tenderness Neuro- alert, oriented x 3; no gross focal neurologic deficits Skin- warm & dry Results & Data Results & Data ([facility]) Vital Signs (Past 12 Hours) Vital Signs Temp Pulse Pulse Resp BP Pulse Ox O2 Del Method 08/17/22 12:11 37.3 C 77 16 162/70 H 94 Room Air 08/17/22 10:33 76 08/17/22 07:41 36.5 C 76 16 172/70 H 95 Room Air 08/17/22 03:47 37.1 C 74 18 168/72 H 93 Room Air all noted and reviewed including below (1) Fall Encounter type: initial encounter Qualified Code(s): W19.XXXA - Unspecified fall, initial encounter
[2022-08-17] MEDS: LATANOPROST 0.005% OP SOLN 2.5 ML BTL OPB SCH (21:52)
[2022-08-17] MEDS: MONTELUKAST SODIUM 10 MG TABLET PO SCH (21:52)
[2022-08-17] MEDS: HYDROXYCHLOROQUINE SULFATE 200 MG TAB PO SCH (21:52)
[2022-08-18] MEDS: INSULIN ASPART PER UNIT SC SCH ×5 (00:56→21:34)
[2022-08-18] MEDS: HEPARIN SOD 5,000 UNIT/0.5 ML VIAL SQ SCH ×3 (06:11→23:05)
[2022-08-18] MEDS ORDERED: hydrALAZINE HCL 20 MG/ML VIAL IV PRN (08:09)
[2022-08-18] MEDS ORDERED: hydrALAZINE HCL 20 MG/ML VIAL IV ONE (08:09)
[2022-08-18 08:40] LABS: Basophils # (auto) 0.03 K/uL (0-0.2); Basophils % (auto) 0.2 %; Eosinophils # (auto) 0.01 K/uL (0-0.50); Eosinophils % (auto) 0.1 %; Hematocrit (blood only) 28.3 % (34.1-44.9); Hemoglobin 9.6 g/dl (12.0-16.0); Immature Granulocytes % (auto) 1.9 %; Lymphocytes % (auto) 7.6 %; Mean Corpuscular Hemoglobin 27.7 pg (25.0-34.0); Mean Corpuscular Hgb Conc 33.9 g/dL (32.0-36.0); Mean Corpuscular Volume 81.8 fL (80.0-100.0); Mean Platelet Volume 7.8 fL (9.4-12.3); Monocytes # (auto) 1.37 K/uL (0.24-0.82); Monocytes % (auto) 8.7 %; Neutrophils % (auto) 81.5 %; Platelet Count 350 K/uL (130-400); RDW Standard Deviation 47.6 fL (36.4-46.3); Red Blood Count 3.46 M/uL (3.93-5.22); White Blood Count 15.81 K/ul (4.8-10.8)
[2022-08-18] MEDS: DOCUSATE SODIUM/SENNA 50/8.6MG TAB PO SCH (08:40)
[2022-08-18] MEDS: LANTUS PER UNIT CHARGE SQ SCH (08:41)
[2022-08-18 08:51] LABS: Base Excess ABG 8.6 mEq/L (-9-1.8); HCO3 ABG 32 mmol/L (19-24); Oxygen Saturation ABG 96.6 % (90-95); PCO2 ABG 37 mmHg (35-46); PO2 ABG 66 mmHg (80-95)
[2022-08-18 08:57] LABS: pH ABG 7.54 (7.35-7.45)
[2022-08-18 09:00] LABS: Albumin Globulin Ratio 0.7 (0.9-2); Albumin Level 2.8 gm/dl (3.4-5.0); BUN Creatinine Ratio 38.1 (10-20); Bilirubin,Total 0.5 mg/dl (0.2-1.0); Calcium 9.8 mg/dl (8.5-10.1); Creatinine Clr Calc Pharmacy 61.9 ml/min; Est GFR (African American) 102.4 ml/min; Est GFR (Non-African American) 88.4 ml/min; Globulin 3.9 gm/dl (2.5-4.0); Potassium 3.5 mmol/L (3.5-5.1); Total Protein 6.7 gm/dl (6.0-8.3)
[2022-08-18] MEDS: CLOPIDOGREL BISULFATE 75 MG TAB PO SCH (10:14)
[2022-08-18] MEDS: amLODIPine BESYLATE 5 MG TAB PO SCH (10:14)
[2022-08-18] MEDS: CYANOCOBALAMIN (B-12) 500 MCG TABLET PO SCH (10:14)
[2022-08-18] MEDS: DAPTOmycin 200 MG in SYRINGE 0 ML IV SCH (10:15)
[2022-08-18] MEDS: METOPROLOL SUCC 50MG EXT REL TAB PO SCH ×2 (10:15→20:35)
[2022-08-18] MEDS: FLUTICASONE/VILANTEROL 200/25MCG 14 PUFFS/INHALER INH SCH (10:15)
[2022-08-18] MEDS: ADVANCED PROBIOTIC 1250 MG CAPSULE PO SCH ×2 (10:15→20:34)
[2022-08-18] MEDS: MAGNESIUM OXIDE 400 MG TAB PO SCH ×2 (10:15→20:35)
[2022-08-18] MEDS: DULoxetine HCL 60 MG CAP PO SCH (10:15)
[2022-08-18] MEDS: predniSONE 10 MG TABLET PO SCH (10:16)
[2022-08-18] MEDS: VANCOMYCIN HCL 125 MG/2.5ML SOLN PO SCH (10:16)
[2022-08-18] MEDS: RASPBERRY SYRUP 5 ML UDP PO SCH (10:16)
[2022-08-18] MEDS: PANTOprazole 40 MG TAB PO SCH (10:16)
--- NOTE | 2022-08-18 10:28 | CT Scan Report ---
HEAD CT NONCONTRAST CT DOSE: 1096.46 mGy.cm HISTORY: altered mental status TECHNIQUE: Multiaxial CT images of the head were performed without the use of intravenous contrast. A utomated exposure control was utilized for this study. A dose lowering technique was utilized adheri ng to the principles of ALARA. Comparison: Head CT 08/07/2022. Findings: Mild mucosal thickening within the sphenoid sinuses. The mastoid air cells are clear. The c alvarium and skull base are intact. There is no mass, hematoma, midline shift, acute infarct. White m atter hypodensity is nonspecific but suggestive of microvascular ischemic change. The ventricles and sulci demonstrate mild age-related involutional changes. Impression: No significant change compared to the prior study. No acute intracranial abnormality. ACT 112: Negative or not required by law. Electronically signed by: Peter Olivarez M.D. 08/18/2022 10:26 AM
--- NOTE | 2022-08-18 11:24 | Ultrasound Report ---
US liver CLINICAL HISTORY: elevate LFTs TECHNIQUE: Multiple real-time sonographic images of the right upper quadrant were obtained. Comparison: Comparison is made to CT abdomen pelvis 03/31/2022 FINDINGS: The liver is diffusely homogenous with normal contour and echogenicity. No focal mass lesions are see n. No intrahepatic ductal dilatation is seen. Patient is status post cholecystectomy. The common duct measures 0.5 cm in diameter at the level of the hepatic artery. The visualized portions of the pancreas appear normal. The right kidney shows normal echogenicity, cortical thickness and renal contour. The right kidney sh ows no evidence of hydronephrosis or mass. No ascites or free fluid is seen in Uriarte's pouch. IMPRESSION: No acute abnormalities are seen. Patient is status post colostomy. ACT 112: Negative or not required by law. Electronically signed by: Jose Morton M.D. 08/18/2022 11:23 AM
--- NOTE | 2022-08-18 11:43 | Ultrasound Report ---
US extremity nonvascular comp CLINICAL HISTORY: R knee edema,r/o effusion TECHNIQUE: Real-time grayscale sonographic images of the right medial knee were obtained. Comparison: None available at the time of this dictation. FINDINGS/IMPRESSION: Soft tissue swelling is seen with suggestion of edema or effusion. No drainable fluid collection is seen. ACT 112: Negative or not required by law. Electronically signed by: Jose Morton M.D. 08/18/2022 11:42 AM
[2022-08-18 12:28] LABS: Allen Test POS (Pos)
[2022-08-18 12:41] LABS: Appearance Urine Clear (Clear); Bacteria Urine Automated Negative (Negative); Bilirubin Urine Negative (Negative); Blood Urine Negative (Negative); Color Urine Yellow; Epithelial Cell Urine Auto >30 /lpf (0-5); Glucose Urine UA Negative (Negative); Ketones Urine Negative (Negative); Leukocyte Esterase Urine Negative (Negative); Nitrite Urine Negative (Negative); RBC Urine Automated 0-4 /hpf (0-4); Specific Gravity Urine 1.012 (1.000-1.030); Urobilinogen Urine Negative (Negative); pH Urine 7.5 (4.5-7.5)
[2022-08-18 13:04] LABS: Protein Urine 1+ (Negative)
--- NOTE | 2022-08-18 13:55 | Pharmacy Report ---
Pharmacy Glycemic Short Note 2 - Date of Service August 18, 2022 - Glycemic Short BSG Results (Last 24 hours): 08/17/22 08/17/22 08/18/22 16:40 20:45 07:37 Glucose POC Glucose 124 H 114 H 161 H 08/18/22 08/18/22 08:14 11:45 Glucose 162 H POC Glucose 122 H OUTPATIENT ANTIDIABETIC REGIMEN: * none ASSESSMENT: 08/18/22 * Patient's BSGs yesterday were [phone] mg/dL. Patient continues on prednisone 10 mg daily. * Fasting today is 161 mg/dL which is elevated from yesterday. Patient has been stable on Lantus 12 units for several days so will not increase Lantus at this point. * Loosen CF as patient overcorrects when BSG elevated. Tighten CR due to steroid use. 08/14 * Patient received 18 units of insulin yesterday, of which 10 were basal * Slight increase to 12 units of Lantus this AM * Mealtime BSGs still elevated, but downtrending, continue current Novolog parameters 08/13 * Patient is 76 y/o F admitted for UTI/pneumonia. Pharmacy is consulted for hyperglycemia management * BSGs in the past 24 hours have been within goal range, 10 units of insulin given yesterday of which 10 were basal * Lunchtime BSG of 310/333/317 * Patient on 5mg prednisone at home, increased to 20mg yesterday afternoon * Will give nighttime basal insulin now x1 (hold HS dose), tighten Novolog parameters, and monitor for continued hyperglycemia PLAN FOR INPATIENT GLYCEMIC CONTROL: * Hold outpatient oral diabetes medications * Basal insulin * Lantus 12 units SQ daily * Bolus insulin * NovoLog per scale ACHS or Q6hrs while NPO * Goal Range: Low 120 mg/dL - High 160 mg/dL * Correction Factor: 30 mg/dL/unit * Nutritional / Prandial insulin per carb ratio of 1 unit per 6 grams CHO consumed
[2022-08-18] MEDS: CEFEPIME 2,000 MG in SYRINGE 0 ML IV SCH ×2 (16:54→23:06)
[2022-08-18] MEDS ORDERED: D5NSS + 20MEQ KCL 20 MEQ/1,000 ML BAG IV SCH (17:15)
--- NOTE | 2022-08-18 20:08 | Hospitalist Progress Note ---
Date of Service August 18, 2022 Assessment & Plan (1) Fever: Plan: per Dr. Seymour's notes with addendum: Uncertain etiology. check repeat CXR for any developing pneumonia. This shows some atelectasis on the right middle lobe. As she has been spiking fevers, will extend coverage of her antibiotic regimen to include azithromycin. Checking LE dopplers to rule out DVT-these were negative. She has no overt skin breakdown per primary RN. She reports feeling well but still with urinary symptoms including urgency and incontinence. Repeat urinalysis reveals UTI has cleared up. secondary to UTI, possible Pneumonia completed 5 day course of Ceftriaxone for Klebsiella UTI repeat urine culture, possible Enterococcus, 20k, sensitive to Macrobid received 3 days of Azithromycin for possible pneumonia CT chest without contrast: No lymphadenopathy or airspace consolidation typical for pneumonia. Afebrile since Thursday Given Macrobid twice daily for Enterococcus UTI, to complete 7-day course--transition to daptomycin plus cefepime given altered mental status Repeat urinalysis negative Repeat blood cultures: Pending No other source of infection identified at this time secondary to RA flare? Dr. Seymour discussed with Rheum- Dr. Lucas Prednisone increased from 5mg to 20mg daily Plaquenil (discontinued few months ago), resumed Denies arthralgia except for left wrist with known fracture secondary to fall -- Reduce prednisone to 10 mg daily (2) Acute metabolic encephalopathy: Plan: 2/2 UTI, likely ongoing for last couple of weeks. also offers that she gets intermittently confused on a regular basis at home. Cont antibiotics for infection. Waxing/waning mental status 08/18 Patient was more awake and alert from Thursday to Thursday, during that time, Macrobid started for UTI secondary VRE, fever also resolved Over the weekend, patient started to be confused, drowsy again, although she remained afebrile Today, patient became very drowsy again Repeat CT head: No acute process Afebrile, with mild leukocytosis, but also has been receiving prednisone 20 mg last week, which has been decreased to 10 mg since yesterday No other infection sources identified at this time, but repeat blood cultures are pending, antibiotics escalated again to daptomycin plus cefepime Possible concussion injury from recent fall? Will consult neurology service for recommendations (3) UTI (urinary tract infection): Plan: per #1 (4) Hyponatremia: Plan: -- Sodium 132 monitor (5) Fall: Plan: Progressive weakness likely related to active infection in setting of prior h/o stroke with known residual deficits. PT/OT (6) Wrist injury: Plan: L triquetrum fracture. Orthopedics is consulted. Splint in place and she appears to have pain well managed. I am holding on giving continuous acetaminophen given the level of somnolence. continue PRN Tylenol Cont splint and ice to area TID (7) Generalized weakness: Plan: PT/OT (8) Recurrent Clostridioides difficile infection: Plan: Seen by ID on 07/18/22. Has had 3 recurrences of c difficile diarrhea. Chronically on vancomycin once daily for suppression which has been keeping her BMs to 1-2 formed stools daily. She continues on this now and will not stop it until she is off the current antibiotics. Cont vanc PO once daily. No diarrhea in last 24 hours. (9) DM type 2 (diabetes mellitus, type 2): Plan: She has a slightly elevated A1C of 7.0, likely related to ongoing prednisone use. Not taking any blood glucose lowering medications at home. Pharmacy Glycemic Ctrl consulted (10) History of stroke: Plan: chronic, cont medical management. (11) CKD (chronic kidney disease), stage III: Plan: chronic, stable. Cont monitoring and renally dose meds as needed. (12) HTN (hypertension): Plan: chronic, no changes in BP meds. (13) Depression: Plan: chronic, stable. Cont duloxetine per home regimen. (14) DVT prophylaxis: Plan: heparin Full Code Dispo- lives with Admission and Anticipated Discharge Date Admission Date: August 06, 2022 Subjective Follow-up for altered mental status, UTI, etc. noted to be very drowsy this morning by RN Seen resting in bed, sleeping, very drowsy, opens eyes when awakened, answers with few words Seems to be oriented but very drowsy Denies headache, dizziness, chest pain, cough, abdominal pain, problems with urination, leg or knee pain Review of Systems Review of Systems: all noted and negative except for above Physical Exam Physical Exam: General- oriented x 1, not in distress, speaks in few words with no effort or accessory muscle use Eyes- anicteric Neck- no JVD Lungs- clear breath sounds bilaterally, no crackles, no wheezing bilaterally Heart- normal rate, regular rhythm; no murmurs Abdomen- normal bowel sounds, nondistended, soft, nontender Extremities- no pretibial edema, no calf tenderness Right knee-mild swelling on the medial aspect, but no erythema/warmth/tenderness Neuro-drowsy, oriented times; negative for neck rigidity, no gross focal neurologic deficits Skin- warm & dry Results & Data Results & Data ([facility]) Vital Signs (Past 12 Hours) Vital Signs Temp Pulse Pulse Resp BP Pulse Ox O2 Del Method 08/18/22 15:44 93 H 08/18/22 15:17 37.3 C 95 H 18 115/71 93 Room Air 08/18/22 14:25 Room Air 08/18/22 12:04 37.3 C 91 H 20 130/84 93 Room Air 08/18/22 11:27 81 08/18/22 09:50 37.1 C 85 22 151/79 H 98 Room Air all noted and reviewed including below (1) Fall Encounter type: initial encounter Qualified Code(s): W19.XXXA - Unspecified fall, initial encounter
[2022-08-18] MEDS: LATANOPROST 0.005% OP SOLN 2.5 ML BTL OPB SCH (20:17)
[2022-08-18] MEDS: HYDROXYCHLOROQUINE SULFATE 200 MG TAB PO SCH (20:34)
[2022-08-18] MEDS: MONTELUKAST SODIUM 10 MG TABLET PO SCH (20:35)
--- NOTE | 2022-08-19 01:05 | Communication Note ---
Date of Service: August 19, 2022 1 AM Patient in and out of A. fib/juancho flutter as per RN. Heart rate 110s Patient lethargic, unable to safely swallow pills due to concerns for aspiration as per RN. AP Rapid A. fib PCU transfer IV beta-rhoda while patient unable to take oral metoprolol Check electrolytes
[2022-08-19] MEDS ORDERED: METOPROLOL TARTRATE 1 MG/ML VIAL IV STA (01:07)
[2022-08-19] MEDS ORDERED: LACTATED RINGER'S 1,000 ML IV ONE (01:09)
[2022-08-19] MEDS ORDERED: MAGNESIUM SULFATE / D5W 1 GM/100 ML BAG IV ONE (01:30)
[2022-08-19] MEDS: POTASSIUM CHLORIDE / WTR 10 MEQ/100 ML PLCT IV SCH ×7 (02:15→08:43)
[2022-08-19 02:32] LABS: Basophils # (auto) 0.02 K/uL (0-0.2); Basophils % (auto) 0.1 %; Eosinophils # (auto) 0.01 K/uL (0-0.50); Eosinophils % (auto) 0.1 %; Hematocrit (blood only) 31.2 % (34.1-44.9); Hemoglobin 10.5 g/dl (12.0-16.0); Immature Granulocytes # (auto) 0.25 K/uL (0.00-0.02); Immature Granulocytes % (auto) 1.6 %; Lymphocytes # (auto) 0.88 K/uL (1.2-3.4); Lymphocytes % (auto) 5.5 %; Mean Corpuscular Hemoglobin 27.6 pg (25.0-34.0); Mean Corpuscular Hgb Conc 33.7 g/dL (32.0-36.0); Mean Corpuscular Volume 81.9 fL (80.0-100.0); Mean Platelet Volume 7.8 fL (9.4-12.3); Monocytes # (auto) 1.16 K/uL (0.24-0.82); Monocytes % (auto) 7.2 %; Neutrophils # (auto) 13.69 K/uL (1.4-6.5); Neutrophils % (auto) 85.5 %; Platelet Count 317 K/uL (130-400); RDW Coefficient of Variation 16.2 % (11.5-14.5); RDW Standard Deviation 48.7 fL (36.4-46.3); Red Blood Count 3.81 M/uL (3.93-5.22); White Blood Count 16.01 K/ul (4.8-10.8)
[2022-08-19 03:09] LABS: BUN Creatinine Ratio 33.3 (10-20); Calcium 9.4 mg/dl (8.5-10.1); Creatinine Clr Calc Pharmacy 59.1 ml/min; Est GFR (African American) 100.9 ml/min; Magnesium 1.6 mg/dl (1.7-2.4); Potassium 3.3 mmol/L (3.5-5.1)
[2022-08-19] MEDS: MAGNESIUM SULFATE / D5W 1 GM/100 ML BAG IV SCH ×2 (04:12→05:38)
[2022-08-19] MEDS: METOPROLOL TARTRATE 1 MG/ML VIAL IV SCH ×4 (04:53→17:14)
[2022-08-19 04:57] LABS: Partial Thromboplastin Ratio 1.3; Partial Thromboplastin Time 34.7 Seconds (21.0-31.0)
[2022-08-19] MEDS: HEPARIN SOD 5,000 UNIT/0.5 ML VIAL SQ SCH ×3 (05:11→21:39)
[2022-08-19] MEDS ORDERED: METOPROLOL TARTRATE 1 MG/ML VIAL IV SCH (06:00)
[2022-08-19] MEDS: INSULIN ASPART PER UNIT SC SCH ×4 (08:44→21:32)
[2022-08-19] MEDS: CEFEPIME 2,000 MG in SYRINGE 0 ML IV SCH ×2 (09:38→15:39)
[2022-08-19] MEDS: DAPTOmycin 200 MG in SYRINGE 0 ML IV SCH (09:41)
[2022-08-19] MEDS: FLUTICASONE/VILANTEROL 200/25MCG 14 PUFFS/INHALER INH SCH (10:40)
--- NOTE | 2022-08-19 10:44 | Neurology Consultation ---
Date of Consultation August 19, 2022 Assessment & Plan (1) Generalized weakness: (2) Acute metabolic encephalopathy: (3) Paroxysmal atrial fibrillation: (4) History of stroke: Plan this is a complicated patient with multiple issues. She has had encephalopathy which has waxed and waned throughout her hospitalization and was likely initially secondary to urinary tract infection. The patient may be having ongoing infection but she is not febrile. Her white count is elevated however she has been on steroids. She has some electrolyte abnormalities including daily all sodium her apparently and magnesium which might possibly contribute to altered mental status. Her liver enzymes are elevated but her ammonia level is normal. This morning, I believe her mental status is improved compared to yesterday. Significantly her sed rate is elevated at 70. This could be due to her rheumatoid arthritis condition although an infection cannot be excluded. On neurologic examination she has generalized weakness mostly proximally in all 4 limbs. There are no focal findings although there was an equivocal to mildly upgoing toe on the right. She may have some left gaze issues as well. The patient does have a history of small left putaminal stroke in March of this year currently on Plavix. With the paroxysmal atrial fibrillation I cannot exclude additional stroke including emboli. 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 This myopathy could be due to steroids and her rheumatologic disease. Other etiologies need to be considered. Recommendations: 1. MRI of the brain , with and without contrast, and compare to the previous study. 2. hold on LP for now but we may consider this if her status changes ( I have a low suspicion of meningitis in this patient). 3. check CK, aldolase, B12, and Lyme antibody titers 4. avoid increasing steroids for now as this could be making her myopathy worse. 5. 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 6. EMG and nerve conduction studies of 1 arm and 1 leg to be done as an outpatient if she is still weak. 7. physical, speech, and occupational therapy consults, increasing activity as able Overall, I spent a total of 60 minutes with this case including review of records, review of CT films, direct evaluation the patient at bedside, and discussion of the case with the patient and at bedside, and Dr. Johnson, including differential diagnosis and treatment options. History of Present Illness Reason for Consultation: patient is a 76-year-old, who I was asked to see at the request of Dr. Johnson, for neurologic consultation regarding altered mental status and other issues. is present who as to the history. Requesting Physician: Dr. Johnson Attending Physician: Deven Johnson MD History of Present Illness This patient has a longstanding history of multiple medical problems including hypertension, coronary artery disease, dyslipidemia, type 2 diabetes, COPD, and rheumatoid arthritis. She is followed by Dr. Collado is on 5 milligrams of prednisone and hydroxychloroquine daily She has been on Plavix 75 milligrams a day for a small left putaminal stroke discovered in mid March of this year. Her MRI at that time showed significant generalized atrophy and moderate to severe old small vessel ischemic disease. She has been stable with this. Over the last weeks prior to admission , the patient has been having some weakness in general and some slowness / confusion. One day prior to admission she fell hitting the back of her head and left shoulder without loss of consciousness. Patient was admitted on August 06 and was found to have urinary tract infection treated with antibiotics. Mental status cleared up to being quite good between August 13 and August 16. The last few days she has been more confused and sleepy. Apparently, throughout her hospitalization her prednisone has been increased to as much as 20 milligrams a day but the prednisone was decreased yesterday to 10 milligrams a day. Her white count has been elevated as of yesterday up to 16 with increased neutrophils. Her glucose has been elevated as well. Recent laboratory studies revealed a sed rate of 70 with anemia and a magnesium 1.6. Liver enzymes are elevated but her ammonia level was normal. CT scan of the head August 18 was unremarkable showing no change from August 07. Ultrasound of the liver and the extremities or largely unremarkable. The patient had 1 low-grade fever reading (37.6) on August 16 and no other fever since. This morning the patient is very weak in general. She denies any pain or headache. She is not dizzy or has any new vision problems. She knows she is somewhat slow. She denies numbness or tingling in her limbs. The patient has been noted to be in and out of atrial fibrillation this hospitalization. Allergies Allergy/AdvReac Type Severity Reaction Status Date / Time Influenza Virus Vaccines Allergy Severe FLOWN TO Verified 08/06/22 17:37 [facility]. methotrexate Allergy Intermediate RASH/PNEUMO Verified 08/06/22 17:37 N[facility] Penicillins Allergy Intermediate hives Verified 08/06/22 17:37 ranitidine Allergy Intermediate rash Verified 08/06/22 17:37 [facility] AdvReac Severe CAUSE Uncoded 08/06/22 17:37 BREATHING ISSUES Home Medications Medication Instructions Recorded Confirmed Type duloxetine 30 mg capsule,delayed 60 mg PO DAILY 07/20/18 08/06/22 History release folic acid 1 mg tablet 1 mg PO QAM 07/20/18 08/06/22 History prednisone 5 mg tablet 5 mg PO QAM 07/20/18 08/06/22 History albuterol sulfate 90 mcg/actuation 2 puff inhalation Q4 PRN Shortness 03/07/19 08/06/22 History aerosol inhaler (ProAir HFA) Of Breath cyanocobalamin (vitamin B-12) 2,000 mcg PO 3XWK 03/07/19 08/06/22 History 1,000 mcg tablet (Vitamin B-12) vit A 300 mcg-C 200 mg-E 27 1 tab PO QDL 03/07/19 08/06/22 History mg-lutein 2 mg and minerals tablet (Ocuvite with Lutein) multivit with 1 tab PO QDL 11/12/19 08/06/22 History zxqkaaem-fzsx-NV-lutein 8 mg iron-400 mcg-300 mcg tablet (Centrum Silver Women) montelukast 10 mg tablet 10 mg PO HS 11/15/20 08/06/22 History latanoprost 0.005 % eye drops 1 drp OPB HS 01/03/21 08/06/22 History solifenacin 10 mg tablet (Vesicare) 10 mg PO QDL 08/22/21 08/06/22 History acetaminophen 325 mg tablet 325 mg PO BID PRN Pain 03/21/22 08/06/22 History fluticasone furoate 200 1 inh inhalation DAILY 03/21/22 08/06/22 History mcg-vilanterol 25 mcg/dose inhalation powder (Breo Ellipta) thiamine HCl (vitamin B1) 100 mg 50 mg PO DAILY 03/21/22 08/06/22 History tablet vancomycin 125 mg capsule 125 mg PO DAILY 03/21/22 08/06/22 History clopidogrel 75 mg tablet 75 mg PO QAM #30 tabs 04/01/22 08/06/22 Rx magnesium oxide 400 mg (241.3 mg 400 mg PO BID #60 tabs 04/01/22 08/06/22 Rx magnesium) tablet rosuvastatin 10 mg tablet 20 mg PO QAM #60 tabs 04/01/22 08/06/22 Rx Lactobacillus rhamnosus GG 5 5 cell PO BID 08/06/22 08/06/22 History billion cell oral powder packet ([facility] Glocal Probiotics) albuterol sulfate 2.5 mg/3 mL 2.5 mg inhalation DIRECTED PRN 08/06/22 08/06/22 History (0.083 %) solution for nebulization Shortness Of Breath Or Wheezing amlodipine 10 mg tablet 10 mg PO DAILY 08/06/22 08/06/22 History betamethasone dipropionate 0.05 % 1 applic topical BID PRN AFFECTED 08/06/22 08/06/22 History topical cream AREA cholecalciferol (vitamin D3) 50 50 mcg PO DAILY 08/06/22 08/06/22 History mcg (2,000 unit) capsule (Vitamin D3) ferrous sulfate 325 mg (65 mg 325 mg PO DAILY 08/06/22 08/06/22 History iron) tablet levalbuterol HCl 1.25 mg/3 mL 1.25 mg inhalation Q4H PRN 08/06/22 08/06/22 History solution for nebulization (Xopenex) SOB/COUGH/WHEEZING menthol 0.44 %-zinc oxide 20.6 % 1 applic topical BID PRN AFFECTED 08/06/22 08/06/22 History topical ointment (Calmoseptine) AREA metoprolol succinate 25 mg 75 mg PO DAILY 08/06/22 08/06/22 History tablet,extended release 24 hr pantoprazole 40 mg tablet,delayed 40 mg PO DAILY 08/06/22 08/06/22 History release (Protonix) triamcinolone acetonide 0.1 % 1 applic topical BID PRN AFFECTED 08/06/22 08/06/22 History topical cream AREA Patient History Medical History Abnormal ECG Acute hyponatremia Asthma inhalers prn Chronic steroid use prednisone daily CKD (chronic kidney disease), stage III COPD (chronic obstructive pulmonary disease) inhalers prn Depression DJD of right shoulder DM type 2 (diabetes mellitus, type 2) Dyslipidemia Elevated troponin Gastroparesis GERD (gastroesophageal reflux disease) Glaucoma Gout H/O interstitial lung disease "drug induced- methotrexate " Heart disease History of stroke HTN (hypertension) Migraines NSTEMI (non-ST elevated myocardial infarction) (08/06/13) Osteoarthritis Peripheral neuropathy Rheumatoid arthritis "on chronic steroids" RSV infection Syncope Surgical History H/O cardiac catheterization "cath 07/2013- single vessel CAD involving apical segment LAD, medical management indicated" H/O colonoscopy History of esophagogastroduodenoscopy (EGD) History of hysterectomy History of tooth extraction all top teeth S/P removal of ovarian cyst S/P rotator cuff repair "right shoulder" S/P total knee arthroplasty "left knee" Family History Father Family history of diabetes mellitus Mother Heart disease Hypertension Other No family history of adverse response to anesthesia Social History Smoking Status: Never smoker Second Hand Exposure: No; Hx Alcohol Use: No Hx Substance Use: No Preferred Language: Indonesian Communication Ability: Effective Aging Box Hand Required: No Beliefs That Will Affect Care: None marital status: Current Living Situation: Spouse current occupational status: retired current occupation: Former [employer] Feels Safe at Home: Yes Assistive Devices: Bedside Commode, Walker and Wheelchair Review of Systems Review of Systems: review systems was limited due to her general sense of weakness and slowness. Exam (Neuro) Physical Exam: The patient is right-handed. The patient is awake but will drift into sleepy if left alone. When spoken to, however and worked with, she will maintain alertness. She can follow 1 step commands fairly well although she is slow. She has some slight to mild dysarthria but no obvious aphasic. She can name objects and colors. mood seems reasonable and affect is somewhat flat. Her memory was impaired long and short- term to at least a moderate degree With conversation Pupils are 4 mm bilaterally and reactive to light. Extraocular eye muscles are intact without nystagmus, although she did not look well with both eyes completely to the left. There are no deficits to sensation in the face in all 3 distributions of the fifth cranial nerve bilaterally. Corneal reflexes are positive bilaterally. Facial strength and symmetry was normal bilaterally. Hearing seems normal bilaterally. Palate moves well without asymmetry. There is normal sternocleidomastoid and trapezius (shoulder shrug) strength bilaterally. Tongue is midline with good strength bilaterally. Neck has a full range of motion without discomfort. Cervical, thoracic, and lumbar spine are nontender to palpation. Gait is Not tested and stance sitting up in bed is poor/ weak the patient is weak in general and is graded at 3/5 proximally and 4/5 distally in all 4 limbs. Tone is reasonable without rigidity or spasticity. With outstretched arms there is no obvious tremor and she has no resting tremor. There is no myoclonus or other abnormal involuntary movement and no obvious ataxia with finger-nose testing although this is limited due to her upper extremity proximal weakness. Sensory examination seems reasonable to pin and touch distally in All 4 limbs. Reflexes are 1/4 in the biceps, triceps, and brachioradialis tendons bilaterally. Quadriceps and Achilles tendon reflexes are absent bilaterally. There is no clonus bilaterally. Toes are downgoing with plantar stimulation on the left and equivocal to upgoing on the right Results & Data ([facility]) Vital Signs (Past 12 Hours) Vital Signs Temp Pulse Pulse Resp BP BP BP 08/19/22 10:02 08/19/22 07:26 36.9 C 85 17 152/76 H 08/19/22 07:21 88 08/19/22 05:20 08/19/22 03:04 88 17 158/75 H 08/19/22 04:23 36.3 C L 88 18 162/69 H 08/19/22 04:53 88 157/76 H 08/18/22 22:43 105 H 08/19/22 02:07 159/91 H 08/19/22 01:34 102 H 17 172/78 H 08/19/22 01:08 103 H 16 173/82 H 08/19/22 01:28 107 H 153/71 H 08/19/22 00:25 37.2 C 92 H 18 157/79 H Pulse Ox O2 Del Method 08/19/22 10:02 Room Air 08/19/22 07:26 98 Room Air 08/19/22 07:21 08/19/22 05:20 Room Air 08/19/22 03:04 96 Room Air 08/19/22 04:23 98 Room Air 08/19/22 04:53 08/18/22 22:43 08/19/22 02:07 08/19/22 01:34 100 Room Air 08/19/22 01:08 99 Room Air 08/19/22 01:28 08/19/22 00:25 94 Room Air PG Care Time/CCT Total # of Minutes Spent Total Time Spent with Patient: Total time spent is greater than 50% in coordination of care (as documented) at patient's floor/unit and/or counseling patient: Coding Level of Care Code 58507 Initial Inpt Care Lvl 3 Diagnoses Generalized weakness R53.1 Acute metabolic encephalopathy G93.41 Paroxysmal atrial fibrillation I48.0 History of stroke Z86.73 Time Spent (min) 60
[2022-08-19] MEDS: DOCUSATE SODIUM/SENNA 50/8.6MG TAB PO SCH (10:45)
[2022-08-19] MEDS: amLODIPine BESYLATE 5 MG TAB PO SCH (10:45)
[2022-08-19] MEDS: ADVANCED PROBIOTIC 1250 MG CAPSULE PO SCH ×2 (10:45→19:16)
[2022-08-19] MEDS: DULoxetine HCL 60 MG CAP PO SCH (10:45)
[2022-08-19] MEDS: CLOPIDOGREL BISULFATE 75 MG TAB PO SCH (10:45)
[2022-08-19] MEDS: PANTOprazole 40 MG TAB PO SCH (10:46)
[2022-08-19] MEDS: MAGNESIUM OXIDE 400 MG TAB PO SCH ×2 (10:46→19:16)
[2022-08-19] MEDS: predniSONE 10 MG TABLET PO SCH (10:46)
[2022-08-19] MEDS: RASPBERRY SYRUP 5 ML UDP PO SCH (10:46)
[2022-08-19] MEDS: VANCOMYCIN HCL 125 MG/2.5ML SOLN PO SCH (10:46)
[2022-08-19] MEDS ORDERED: LANTUS PER UNIT CHARGE SQ SCH (13:00)
--- NOTE | 2022-08-19 13:25 | Pharmacy Report ---
Pharmacy Glycemic Short Note 2 - Date of Service August 19, 2022 - Glycemic Short BSG Results (Last 24 hours): 08/18/22 08/18/22 08/18/22 16:20 16:58 20:25 Glucose POC Glucose 73 80 94 08/19/22 08/19/22 08/19/22 01:07 02:00 07:28 Glucose 124 H POC Glucose 115 H 157 H 08/19/22 12:05 Glucose POC Glucose 164 H OUTPATIENT ANTIDIABETIC REGIMEN: * none ASSESSMENT: 08/19/22 * Patient's BSGs yesterday were 125-907-21-94 mg/dL. Patient received 13 units of insulin yesterday (12 units of basal and 1 unit of bolus). * Fasting BSG was 157 mg/dL. Held off on basal insulin due to patient's NPO status. * Prednisone held yesterday and today. * Lunch BSG was 164 mg/dL. * Lantus given at half-dose due to NPO status. * Continue Novolog. 08/18/22 * Patient's BSGs yesterday were [phone] mg/dL. Patient continues on prednisone 10 mg daily. * Fasting today is 161 mg/dL which is elevated from yesterday. Patient has been stable on Lantus 12 units for several days so will not increase Lantus at this point. * Loosen CF as patient overcorrects when BSG elevated. Tighten CR due to steroid use. 08/14 * Patient received 18 units of insulin yesterday, of which 10 were basal * Slight increase to 12 units of Lantus this AM * Mealtime BSGs still elevated, but downtrending, continue current Novolog parameters 08/13 * Patient is 76 y/o F admitted for UTI/pneumonia. Pharmacy is consulted for hyperglycemia management * BSGs in the past 24 hours have been within goal range, 10 units of insulin given yesterday of which 10 were basal * Lunchtime BSG of 310/333/317 * Patient on 5mg prednisone at home, increased to 20mg yesterday afternoon * Will give nighttime basal insulin now x1 (hold HS dose), tighten Novolog parameters, and monitor for continued hyperglycemia PLAN FOR INPATIENT GLYCEMIC CONTROL: * Hold outpatient oral diabetes medications * Basal insulin * Lantus 6 units SQ daily * Bolus insulin * NovoLog per scale ACHS or Q6hrs while NPO * Goal Range: Low 120 mg/dL - High 160 mg/dL * Correction Factor: 30 mg/dL/unit * Nutritional / Prandial insulin per carb ratio of 1 unit per 6 grams CHO consumed
[2022-08-19] MEDS ORDERED: GADOBUTROL 65ML VIAL IV ONE (13:29)
--- NOTE | 2022-08-19 15:38 | Magnetic Resonance Report ---
MR brain wo/w con HISTORY: 76 years-old Female altered mental status, r/o acute cva acutely altered mental status COMPARISON: Head CT 08/18/2022, brain MRI 03/25/2022 TECHNIQUE: Multiplanar multisequence MRI of the brain was obtained both with and without the use of 6 .2 cc Gadavist FINDINGS: No restricted diffusion to suggest acute or subacute infarct. The visualized midline structures appea r unremarkable. Degenerative changes of the imaged cervical spine. There are a few scattered subcenti meter indeterminate foci of blooming artifacts noted throughout the cerebral hemispheres. Involutiona l changes with moderate T2/FLAIR hyperintense foci throughout the white matter. No acute intracranial hemorrhage, midline shift, abnormal extra axial collection, hydrocephalus or intracranial mass. 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 Cerebral venous sinuses and major arterial flow voids appear patent. Hyperostosis frontalis interna. Prior bilateral lens repair. Mild mucosal thickening of the paranasal sinuses with moderate mastoid e ffusions. No abnormal enhancement. IMPRESSION: 1. Motion degraded exam. No acute intracranial abnormality, specifically no acute or subacute infarct . 2. Involutional changes with chronic microvascular ischemic disease. 3. No abnormal enhancement. ACT 112: Negative or not required by law. The above report was generated using voice recognition software. It may contain grammatical, syntax o r spelling errors. Electronically signed by: Brant Mccoy M.D. 08/19/2022 3:37 PM
--- NOTE | 2022-08-19 16:39 | Electrocardiogram Report ---
Test Reason : Blood Pressure : / mmHG Vent. Rate : 115 BPM Atrial Rate : 147 BPM P-R Int : 000 ms QRS Dur : 116 ms QT Int : 298 ms P-R-T Axes : 000 049 -36 degrees QTc Int : 412 ms Atrial fibrillation with rapid ventricular response Low voltage QRS Right bundle branch block T wave abnormality, consider inferior ischemia Abnormal ECG When compared with ECG of 10-AUG-2022 09:19, Significant changes have occurred Confirmed by Wood Michel ([id number]) on 08/19/2022 4:38:36 PM Referred By: REFERRED SELF Confirmed By:Wood Michel
[2022-08-19] MEDS: HYDROXYCHLOROQUINE SULFATE 200 MG TAB PO SCH (19:15)
[2022-08-19] MEDS: LATANOPROST 0.005% OP SOLN 2.5 ML BTL OPB SCH (19:16)
[2022-08-19] MEDS: MONTELUKAST SODIUM 10 MG TABLET PO SCH (19:17)
--- NOTE | 2022-08-19 20:00 | Hospitalist Progress Note ---
Date of Service August 19, 2022 delayed entry date of service noted above Assessment & Plan (1) Fever: Plan: per Dr. Seymour's notes with addendum: Uncertain etiology. check repeat CXR for any developing pneumonia. This shows some atelectasis on the right middle lobe. As she has been spiking fevers, will extend coverage of her antibiotic regimen to include azithromycin. Checking LE dopplers to rule out DVT-these were negative. She has no overt skin breakdown per primary RN. She reports feeling well but still with urinary symptoms including urgency and incontinence. Repeat urinalysis reveals UTI has cleared up. secondary to UTI, possible Pneumonia completed 5 day course of Ceftriaxone for Klebsiella UTI repeat urine culture, possible Enterococcus, 20k, sensitive to Macrobid received 3 days of Azithromycin for possible pneumonia CT chest without contrast: No lymphadenopathy or airspace consolidation typical for pneumonia. Afebrile since Thursday Given Macrobid twice daily for Enterococcus UTI, to complete 7-day course--blanc sition to daptomycin plus cefepime given altered mental status Repeat urinalysis negative Repeat blood cultures: Pending No other source of infection identified at this time 08/19 somewhat more alert, but still drowsy remains afebrile repeat cultures pending continue Dapto + Cefepime Day 2 monitor response, ff up cultures Neurology consulted Brain MRI ordered additional serologies including CK, aldolase, B12, Lyme AB ordered secondary to RA flare? Dr. Seymour discussed with Rheum- Dr. Lucas Prednisone increased from 5mg to 20mg daily Plaquenil (discontinued few months ago), resumed Denies arthralgia except for left wrist with known fracture secondary to fall -- Reduce prednisone to 10-->5 mg daily (2) Acute metabolic encephalopathy: Plan: 2/2 UTI, likely ongoing for last couple of weeks. also offers that she gets intermittently confused on a regular basis at home. Cont antibiotics for infection. Waxing/waning mental status 08/18 Patient was more awake and alert from Thursday to Thursday, during that time, Macrobid started for UTI secondary VRE, fever also resolved Over the weekend, patient started to be confused, drowsy again, although she remained afebrile Today, patient became very drowsy again Repeat CT head: No acute process Afebrile, with mild leukocytosis, but also has been receiving prednisone 20 mg last week, which has been decreased to 10 mg since yesterday No other infection sources identified at this time, but repeat blood cultures are pending, antibiotics escalated again to daptomycin plus cefepime Possible concussion injury from recent fall? Will consult neurology service for recommendations 08/19 management per above (3) UTI (urinary tract infection): Plan: per #1 (4) Hyponatremia: Plan: -- Sodium 136 monitor (5) Fall: Plan: Progressive weakness likely related to active infection in setting of prior h/o stroke with known residual deficits. needs SNF (6) Wrist injury: Plan: L triquetrum fracture. Orthopedics is consulted. Splint in place and she appears to have pain well managed. continue PRN Tylenol Cont splint and ice to area TID (7) Generalized weakness: Plan: PT/OT: SNF (8) Recurrent Clostridioides difficile infection: Plan: Seen by ID on 07/18/22. Has had 3 recurrences of c difficile diarrhea. Chronically on vancomycin once daily for suppression which has been keeping her BMs to 1-2 formed stools daily. She continues on this now and will not stop it until she is off the current antibiotics. Cont vanc PO once daily. No diarrhea in last 24 hours. (9) DM type 2 (diabetes mellitus, type 2): Plan: She has a slightly elevated A1C of 7.0, likely related to ongoing prednisone use. Not taking any blood glucose lowering medications at home. Pharmacy Glycemic Ctrl consulted (10) History of stroke: Plan: chronic, cont medical management. (11) CKD (chronic kidney disease), stage III: Plan: chronic, stable. Cont monitoring and renally dose meds as needed. (12) HTN (hypertension): Plan: chronic, no changes in BP meds. (13) Depression: Plan: chronic, stable. Cont duloxetine per home regimen. (14) DVT prophylaxis: Plan: heparin Full Code Dispo- d/c to [facility] once medically stable Admission and Anticipated Discharge Date Admission Date: August 06, 2022 Subjective ff up for encephalopathy, UTI, etc seen resting in bed, drowsy but opens eyes to verbal command, tries to answer more questions than yesterday oriented x 2 not in distress states she feels ok overall denies headache, neck pain, chest pain, dyspnea, cough, abdominal pain, nausea/vomiting patient's at bedside states patient is more awake Review of Systems Review of Systems: all noted and negative except for above Physical Exam Physical Exam: General- oriented x 2,drowsy, not in distress, speaks in sentences with no effort or accessory muscle use weak Eyes- anicteric Neck- no JVD Lungs- clear breath sounds bilaterally, no rales/wheezes Heart- normal rate, regular rhythm; no murmurs Abdomen- normal bowel sounds, nondistended, soft, no tenderness Extremities- no pretibial edema, no calf tenderness Neuro- alert, oriented x 3; no gross focal neurologic deficits Skin- warm & dry Results & Data Results & Data ([facility]) Vital Signs (Past 12 Hours) Vital Signs Temp Pulse Pulse Resp BP BP Pulse Ox 08/19/22 19:56 37.8 C H 120 H 20 167/80 H 100 08/19/22 16:16 37.3 C 95 H 16 129/79 98 08/19/22 15:35 104 H 08/19/22 11:56 36.9 C 94 H 17 161/78 H 98 08/19/22 10:02 O2 Del Method 08/19/22 19:56 Room Air 08/19/22 16:16 Room Air 08/19/22 15:35 08/19/22 11:56 Room Air 08/19/22 10:02 Room Air all noted and reviewed including below (1) Fall Encounter type: initial encounter Qualified Code(s): W19.XXXA - Unspecified fall, initial encounter
[2022-08-20] MEDS: METOPROLOL TARTRATE 1 MG/ML VIAL IV SCH ×5 (01:18→23:32)
[2022-08-20] MEDS: CEFEPIME 2,000 MG in SYRINGE 0 ML IV SCH ×2 (02:07→07:58)
[2022-08-20] MEDS: LACTATED RINGER'S 1,000 ML IV SCH ×2 (05:46→22:42)
[2022-08-20 05:50] LABS: Basophils # (auto) 0.03 K/uL (0-0.2); Basophils % (auto) 0.2 %; Eosinophils # (auto) 0.02 K/uL (0-0.50); Eosinophils % (auto) 0.1 %; Hematocrit (blood only) 29.5 % (34.1-44.9); Hemoglobin 9.9 g/dl (12.0-16.0); Immature Granulocytes # (auto) 0.24 K/uL (0.00-0.02); Immature Granulocytes % (auto) 1.6 %; Lymphocytes % (auto) 6.5 %; Mean Corpuscular Hemoglobin 27.3 pg (25.0-34.0); Mean Corpuscular Hgb Conc 33.6 g/dL (32.0-36.0); Mean Corpuscular Volume 81.3 fL (80.0-100.0); Mean Platelet Volume 7.9 fL (9.4-12.3); Monocytes # (auto) 0.99 K/uL (0.24-0.82); Monocytes % (auto) 6.4 %; Neutrophils % (auto) 85.2 %; Platelet Count 275 K/uL (130-400); RDW Standard Deviation 47.4 fL (36.4-46.3); Red Blood Count 3.63 M/uL (3.93-5.22); White Blood Count 15.38 K/ul (4.8-10.8)
[2022-08-20] MEDS: HEPARIN SOD 5,000 UNIT/0.5 ML VIAL SQ SCH ×3 (05:50→22:43)
[2022-08-20 06:11] LABS: BUN Creatinine Ratio 29.7 (10-20); Calcium 9.4 mg/dl (8.5-10.1); Creatinine Clr Calc Pharmacy 60.1 ml/min; Est GFR (African American) 101.9 ml/min; Est GFR (Non-African American) 87.9 ml/min; Magnesium 1.8 mg/dl (1.7-2.4); Potassium 3.4 mmol/L (3.5-5.1)
[2022-08-20 06:24] LABS: Partial Thromboplastin Ratio 1.6
[2022-08-20 06:52] LABS: Partial Thromboplastin Time 45.3 Seconds (21.0-31.0)
[2022-08-20 07:51] LABS: Lyme Ab IgG w/WB Rflx Negative (Negative); Lyme Ab IgM w/WB Rflx Negative (Negative)
[2022-08-20] MEDS: DAPTOmycin 200 MG in SYRINGE 0 ML IV SCH (07:58)
[2022-08-20] MEDS: FLUTICASONE/VILANTEROL 200/25MCG 14 PUFFS/INHALER INH SCH (07:59)
[2022-08-20] MEDS: POTASSIUM CHLORIDE / WTR 10 MEQ/100 ML PLCT IV SCH ×6 (08:00→14:23)
[2022-08-20] MEDS: MAGNESIUM SULFATE / D5W 1 GM/100 ML BAG IV SCH ×2 (08:00→10:06)
[2022-08-20] MEDS: INSULIN ASPART PER UNIT SC SCH ×3 (08:47→18:31)
[2022-08-20] MEDS ORDERED: POTASSIUM CHLORIDE CRTAB 20 MEQ TABCR PO STA (08:53)
--- NOTE | 2022-08-20 09:39 | Neurology Progress Note ---
Date of Service August 20, 2022 Assessment & Plan (1) Generalized weakness: (2) Acute metabolic encephalopathy: (3) Paroxysmal atrial fibrillation: (4) History of stroke: Plan This is a complicated patient with multiple issues. She had encephalopathy which has waxed and waned throughout her hospitalization and was likely initially secondary to urinary tract infection. The patient may be having ongoing infection but she is not febrile. Her white count is elevated however she has been on steroids. She has some electrolyte abnormalities including daily all sodium her apparently and magnesium which might possibly contribute to altered mental status. Her liver enzymes are elevated but her ammonia level is normal. On the morning of the August 19, her mental status was improved compared to previous. This morning, August 20, patient is very sleepy and this is much more so than when I saw her yesterday. The etiology of this sleepiness/encephalopathy is not readily apparent but there are cases of cefepime ( particularly in elderly patients or patients with previous brain injury ) creating lethargy, encephalopathy /delirium, and other CD REACTOR OPERATOR HEAD issues. This typically becomes prominent after several days of treatment. Significantly her sed rate is elevated at 70. This could be due to her rheumatoid arthritis condition although an infection cannot be excluded. there were no meningeal signs on examination. On neurologic examination August 19, she had generalized weakness mostly proximally in all 4 limbs. This was consistent with a myopathy pattern. Steroids and/or her rheumatologic disease could lead to a myopathy. her CK was normal, thus making a subacute or acute inflammatory myopathy less likely. Steroid myopathy is typically associated with a normal CK. There are no focal findings although there was an equivocal to mildly upgoing t oe on the right (Which was probably secondary to her previous left putaminal stroke this past summer). She may have some left gaze issues as well. The paroxysmal atrial fibrillation is noted and puts her at risk for embolic stroke. However, her MRI of the brain showed no acute stroke or new emboli. She does have old generalized small-vessel ischemic disease and significant atrophy given her age. Recommendations: 1. Consider switching cefepime to another antibiotic (or just discontinue) 2. hold on LP for now, but we may consider this if her status changes ( I have a low suspicion of meningitis in this patient). 3. avoid increasing steroids for now, as this could be making her myopathy worse. 4. she may need a different treatment for her rheumatoid arthritis that steroids and I would leave this to her dermatology physician. 5. EMG and nerve conduction studies of 1 arm and 1 leg to be done as an outpatient if she is still weak. 6. physical, speech, and occupational therapy consults, increasing activity as able Overall, I spent a total of 45 minutes with this case including review of records, review of MRI films, direct evaluation the patient at bedside, and discussion of the case with the patient and RN at bedside, and Dr. Rodriguez, including differential diagnosis and treatment options. Admission and Anticipated Discharge Date Admission Date: August 06, 2022 Subjective the patient has been very sleepy this morning and difficult to arouse. The patient had 2 episodes of atrial fibrillation overnight each lasting 30-40 minutes. MRI of the brain obtained August 19 showed no acute stroke but did show advanced generalized atrophy and old small vessel ischemic disease. I reviewed these films. Laboratory studies revealed a CK of 12, normal B12 and negative Lyme antibody titers. Aldolase is pending. Blood pressure is 172/71 she is afebrile at 36.4. Results & Data ([facility]) Vital Signs (Past 12 Hours) Vital Signs Temp Pulse Pulse Resp BP BP BP 08/20/22 07:40 36.4 C L 97 H 16 172/71 H 08/20/22 07:22 90 08/20/22 05:02 122 H 18 143/79 H 08/20/22 02:53 36.6 C 93 H 20 148/84 H 08/20/22 02:08 78 160/79 H 08/20/22 01:37 20 150/83 H 08/20/22 01:18 121 H 170/75 H 08/19/22 22:51 36.8 C 121 H 20 170/75 H Pulse Ox O2 Del Method 08/20/22 07:40 98 Room Air 08/20/22 07:22 08/20/22 05:02 Room Air 08/20/22 02:53 96 Room Air 08/20/22 02:08 08/20/22 01:37 08/20/22 01:18 08/19/22 22:51 98 Room Air Exam (Neuro) Physical Exam: the patient is asleep, but will arouse with voice and gentle shake. She will open her eyes briefly and then closes them again in a couple of seconds. She will not fix gaze or track. Eyes open easily and pupils are 4 mm bilaterally and reactive to light. There is no facial droop. Limb tone is symmetrical in all 4 limbs. She will not follow one-step commands. She withdraws very quickly in all 4 limbs with light uncomfortable stimulation. PG Care Time/CCT Total # of Minutes Spent Total Time Spent with Patient: Total time spent is greater than 50% in coordination of care (as documented) at patient's floor/unit and/or counseling patient: Coding Level of Care Code 31648 Subseq Hosp Care Lvl 3 Diagnoses Generalized weakness R53.1 Acute metabolic encephalopathy G93.41 Paroxysmal atrial fibrillation I48.0 History of stroke Z86.73 Time Spent (min) 45
[2022-08-20] MEDS: CLOPIDOGREL BISULFATE 75 MG TAB PO SCH (10:07)
[2022-08-20] MEDS: amLODIPine BESYLATE 5 MG TAB PO SCH (10:07)
[2022-08-20] MEDS: ADVANCED PROBIOTIC 1250 MG CAPSULE PO SCH ×2 (10:08→22:40)
[2022-08-20] MEDS: MAGNESIUM OXIDE 400 MG TAB PO SCH ×2 (10:08→22:40)
[2022-08-20] MEDS: PANTOprazole 40 MG TAB PO SCH (10:08)
[2022-08-20] MEDS: DULoxetine HCL 60 MG CAP PO SCH (10:08)
[2022-08-20] MEDS: DOCUSATE SODIUM/SENNA 50/8.6MG TAB PO SCH (10:08)
[2022-08-20] MEDS: CYANOCOBALAMIN (B-12) 500 MCG TABLET PO SCH (10:08)
[2022-08-20] MEDS: predniSONE 10 MG TABLET PO SCH (10:09)
[2022-08-20] MEDS: RASPBERRY SYRUP 5 ML UDP PO SCH (10:09)
[2022-08-20] MEDS: VANCOMYCIN HCL 125 MG/2.5ML SOLN PO SCH (10:09)
--- NOTE | 2022-08-20 13:00 | Hospitalist Progress Note ---
Date of Service August 20, 2022 Assessment & Plan (1) Acute metabolic encephalopathy: Plan: 2/2 UTI, likely ongoing for last couple of weeks. also offers that she gets intermittently confused on a regular basis at home. Cont antibiotics for infection. Waxing/waning mental status Empirically started with IV Rocephin on admission Initial urine culture was positive for Klebsiella oxytoca and that was sensitive to ceftriaxone Repeat urinary culture grew Enterococcus faecium VRE on 09 August but the colony count was 20,000 She received a course of oral Macrobid for this infection The patient showed much improvement of her in couple apathy and noted to be alert and awake as of 08/18/202208/18 Patient was more awake and alert from Thursday to Thursday, during that time, Macrobid started for UTI secondary VRE, fever also resolved Over the weekend, patient started to be confused, drowsy again, although she remained afebrile Today, patient became very drowsy again Repeat CT head: No acute process Afebrile, with mild leukocytosis, but also has been receiving prednisone 20 mg last week, which has been decreased to 10 mg since yesterday No other infection sources identified at this time, but repeat blood cultures are pending, antibiotics escalated again to daptomycin plus cefepime Possible concussion injury from recent fall? Will consult neurology service for recommendations Worsening Change in mental status Condition deteriorated since evening of 08/18/2022 with more drowsiness She was very lethargic and almost unresponsive on 08/19/2022 Appreciate neurology input and recommendation Has had appropriate imaging studies including MRI which were negative She has started with intravenous cefepime and daptomycin for possible infection Repeat urine and blood culture came back negative White count was elevated likely secondary to use of steroid Antibiotics will be discontinued since there is a rare possibility of extreme drowsiness with the use of cefepime Patient has been waking up since this afternoon (2) Fever: Plan: Patient remained febrile since admission and the temperature spiking almost every 24 hours Uncertain etiology. check repeat CXR for any developing pneumonia. Changed antibiotic regimen to include azithromycin and finished 5 days course of antibiotic Checking LE dopplers to rule out DVT-these were negative. CT chest without contrast: No lymphadenopathy or airspace consolidation typical for pneumonia. Remains minimally febrile and white count elevated secondary to RA flare? Dr. Seymour discussed with Rheum- Dr. Lucas Prednisone increased from 5mg to 20mg daily Plaquenil (discontinued few months ago), resumed Denies arthralgia except for left wrist with known fracture secondary to fall -- Reduce prednisone to 10-->5 mg daily (3) UTI (urinary tract infection): Plan: per #1 (4) Hyponatremia: Plan: -- Sodium 136 monitor (5) Fall: Plan: Progressive weakness likely related to active infection in setting of prior h/o stroke with known residual deficits. needs SNF (6) Wrist injury: Plan: L triquetrum fracture. Orthopedics is consulted. Splint in place and she appears to have pain well managed. continue PRN Tylenol Cont splint and ice to area TID (7) Generalized weakness: Plan: PT/OT: SNF (8) Recurrent Clostridioides difficile infection: Plan: Seen by ID on 07/18/22. Has had 3 recurrences of c difficile diarrhea. Chronically on vancomycin once daily for suppression which has been keeping her BMs to 1-2 formed stools daily. She continues on this now and will not stop it until she is off the current antibiotics. Cont vanc PO once daily. No diarrhea in last 24 hours. (9) DM type 2 (diabetes mellitus, type 2): Plan: She has a slightly elevated A1C of 7.0, likely related to ongoing prednisone use. Not taking any blood glucose lowering medications at home. Pharmacy Glycemic Ctrl consulted (10) History of stroke: Plan: chronic, cont medical management. (11) CKD (chronic kidney disease), stage III: Plan: Chronic, stable. Cont monitoring and renally dose meds as needed. (12) HTN (hypertension): Plan: chronic, no changes in BP meds. (13) Depression: Plan: chronic, stable. Cont duloxetine per home regimen. (14) DVT prophylaxis: Plan: heparin Full Code Dispo- d/c to [facility] once medically stable Discussed with the in detail Admission and Anticipated Discharge Date Admission Date: August 06, 2022 Subjective 08/20/2022 The patient was seen and examined in telemetry unit She has been very drowsy this morning Only opening her eyes with commands and palpation but has not been talking and/or following any other commands Remains hemodynamically stable without any fever and or chills Review of Systems Review of Systems: All systems reviewed and are unremarkable except as noted below Neurologic: .Alert and awake only to opening eyes on commands. Not communicating. Occasional movements of the extremities Physical Exam Physical Exam: Lying in bed with closed eyes Constitutional: well developed, well nourished, + ill appearing and average body habitus Eyes: Closed ENMT: external ear and nose normal, oropharynx normal Neck: trachea midline, no thyromegaly No neck stiffness Respiratory: no respiratory distress Auscultation: lungs clear to auscultation bilaterally and + diminished lung sounds Cardiovascular: Rate/Rhythm: regular rate and regular rhythm; not tachycardic Heart Sounds: normal S1 and normal S2; no murmur Extremities: no edema Gastrointestinal (Abdomen): Inspection/Auscultation: normal bowel sounds; abdomen not distended Percussion/Palpation: abdomen soft; abdomen nontender Musculoskeletal: 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 Multiple skin bruising as well Skin: Generalized skin bruising Neurologic: Alert awake only to eye opening. Not been communicating and not moving the limbs Lymphatic: no cervical or axillary lymphadenopathy Results & Data Results & Data ([facility]) Vital Signs (Past 12 Hours) Vital Signs Temp Pulse Pulse Resp BP BP BP 08/20/22 11:39 37.0 C 85 18 145/69 H 08/20/22 07:40 36.4 C L 97 H 16 172/71 H 08/20/22 07:22 90 08/20/22 05:02 122 H 18 143/79 H 08/20/22 02:53 36.6 C 93 H 20 148/84 H 08/20/22 02:08 78 160/79 H 08/20/22 01:37 20 150/83 H 08/20/22 01:18 121 H 170/75 H Pulse Ox O2 Del Method 08/20/22 11:39 98 Room Air 08/20/22 07:40 98 Room Air 08/20/22 07:22 08/20/22 05:02 Room Air 08/20/22 02:53 96 Room Air 08/20/22 02:08 08/20/22 01:37 08/20/22 01:18 Laboratory Results Short CBC 08/20/22 Range/Units 05:25 WBC 15.38 H (4.8-10.8) K/ul Hgb 9.9 L (12.0-16.0) g/dl Hct 29.5 L (34.1-44.9) % Plt Count 275 (130-400) K/uL BMP 08/20/22 05:25 Sodium 134 L Potassium 3.4 L Chloride 99 Carbon Dioxide 25 BUN 19 Creatinine 0.64 Glucose 90 Calcium 9.4 Cardiac Enzymes 08/20/22 08/20/22 Range/Units 05:25 05:25 Total Creatine Kinase Cancelled 12 L Medications Administered Current Inpatient Medications Acetaminophen (Acetaminophen 325 Mg Tab) 650 mg PO Q4H PRN PRN Reason: pain or fever Stop: 09/10/22 13:26 Last Admin: 08/14/22 14:56 Dose: 650 mg Amlodipine Besylate (Amlodipine Besylate 5 Mg Tab) 10 mg PO DAILY KARLA Stop: 09/06/22 08:59 Last Admin: 08/20/22 10:07 Dose: Not Given Betamethasone Dipropion Augmented (Betamethasone Dip Aug (Diprolene) 0.05% Cr 15 Gm Tube) 1 appln EXT BID PRN PRN Reason: AFFECTED AREA Stop: 09/05/22 22:10 Calamine/Phenol (Menthol-Zinc Oxide 360 Appln/120 Gm Tube) 1 appln EXT BID PRN PRN Reason: AFFECTED AREA Stop: 09/05/22 21:52 Clopidogrel Bisulfate (Clopidogrel Bisulfate 75 Mg Tab) 75 mg PO QAM KARLA Stop: 09/06/22 08:59 Last Admin: 08/20/22 10:07 Dose: Not Given Cyanocobalamin (Cyanocobalamin (B-12) 500 Mcg Tablet) 2,000 mcg PO MoWeFr@0900 KARLA Stop: 09/07/22 08:59 Last Admin: 08/20/22 10:08 Dose: Not Given Dextrose (Dextrose 50% 50 Ml Syringe) 25 - 50 ml IV UD PRN; Protocol PRN Reason: Hypoglycemia Protocol Stop: 09/05/22 21:52 Duloxetine HCl (Duloxetine Hcl 60 Mg Cap) 60 mg PO DAILY KARLA Stop: 09/06/22 08:59 Last Admin: 08/20/22 10:08 Dose: Not Given Ferrous Sulfate (Ferrous Sulfate 325 Mg Tab) 325 mg PO DAILY KARLA Stop: 09/06/22 08:59 Last Admin: 08/07/22 09:22 Dose: Not Given Fluticasone/Vilanterol (Fluticasone/Vilanterol 200/25mcg 14 Puffs/Inhaler) 1 puffs INH DAILY KARLA Stop: 09/06/22 08:59 Last Admin: 08/20/22 07:59 Dose: 1 puffs Folic Acid (Folic Acid 1 Mg Tab) 1 mg PO QAM KARLA Stop: 09/06/22 08:59 Last Admin: 08/07/22 09:22 Dose: Not Given Glucagon (Glucagon For Inj 1 Mg Vial) 1 mg SQ UD PRN; Protocol PRN Reason: Hypoglycemia Protocol Stop: 09/05/22 21:52 Glucose (Glucose 40% Gel 15 Gm Tube) 15 - 30 gm PO UD PRN; Protocol PRN Reason: Hypoglycemia Protocol Stop: 09/05/22 21:52 Glucose (Glucose 10 Tab/Tube) 4 - 8 tab PO UD PRN; Protocol PRN Reason: Hypoglycemia Treatment Stop: 09/05/22 21:52 Heparin Sodium (Porcine) (Heparin Sod 5,000 Unit/0.5 Ml Vial) 5,000 units SQ Q8 KARLA Stop: 09/05/22 21:59 Last Admin: 08/20/22 05:50 Dose: 5,000 units Hydralazine HCl (Hydralazine Hcl 20 Mg/Ml Vial) 5 mg IV Q6H PRN PRN Reason: systolic bp > 160 Stop: 09/17/22 08:08 Hydroxychloroquine Sulfate (Hydroxychloroquine Sulfate 200 Mg Tab) 200 mg PO HS [facility] Stop: 09/12/22 20:59 Last Admin: 08/19/22 19:15 Dose: Not Given Promethazine HCl 12.5 mg/ (Sodium Chloride) 50.5 mls @ 202 mls/hr IV Q6H PRN PRN Reason: Nausea And Vomiting Stop: 09/11/22 19:23 Lactated Ringer's (Lr) 1,000 mls @ 60 mls/hr IV .[id number] [facility] Stop: 09/19/22 05:14 Last Admin: 08/20/22 05:46 Dose: 60 mls/hr Insulin Aspart (Insulin Aspart Per Unit) 0 units SC ACHS [facility] Stop: 09/08/22 14:14 Last Admin: 08/20/22 11:35 Dose: Not Given Lactobacillus Acidophilus (Advanced Probiotic 1250 Mg Capsule) 2 cap PO BID KARLA Stop: 09/05/22 21:52 Last Admin: 08/20/22 10:08 Dose: Not Given Latanoprost (Latanoprost 0.005% Op Soln 2.5 Ml Btl) 1 drops OPB HS [facility] Stop: 09/05/22 21:52 Last Admin: 08/19/22 19:16 Dose: 1 drops Levalbuterol HCl (Levalbuterol Hcl 1.25 Mg/3 Ml Neb) 1.25 mg INH Q4H PRN; Protocol PRN Reason: SOB/COUGH/WHEEZING Stop: 09/05/22 21:52 Magnesium Oxide (Magnesium Oxide 400 Mg Tab) 400 mg PO BID KARLA Stop: 09/05/22 21:52 Last Admin: 08/20/22 10:08 Dose: Not Given Metoprolol Tartrate (Metoprolol Tartrate 1 Mg/Ml Vial) 2.5 mg IV Q6 [facility] Stop: 09/19/22 05:14 Last Admin: 08/20/22 11:13 Dose: 2.5 mg Miconazole Nitrate (Miconazole Nitrate Powder 43 Gm) 1 appln EXT PRN PRN PRN Reason: Affected Skin Folds Stop: 09/10/22 09:54 Miscellaneous (Carbohydrates For Hypoglycemia ) 15 - 30 gm PO UD PRN PRN Reason: Hypoglycemia Protocol Stop: 09/05/22 21:52 Miscellaneous (Solifenacin [Vesicare]: Order Awaiting Action) 1 each N/A QS [facility] Stop: 09/06/22 07:59 Last Admin: 08/07/22 07:45 Dose: Not Given Miscellaneous Information (Pharmacy Glycemic Mgmt Consult) 1 each N/A UD PRN; Protocol PRN Reason: Consult Stop: 09/12/22 11:54 Montelukast Sodium (Montelukast Sodium 10 Mg Tablet) 10 mg PO HS [facility] Stop: 09/05/22 21:52 Last Admin: 08/19/22 19:17 Dose: Not Given Multivitamins/Minerals (Cerovite Adv Formula Tab) 1 tab PO QDL [facility] Stop: 09/06/22 11:29 Last Admin: 08/07/22 12:50 Dose: Not Given Pantoprazole Sodium (Pantoprazole 40 Mg Tab) 40 mg PO DAILY KARLA Stop: 09/06/22 08:59 Last Admin: 08/20/22 10:08 Dose: Not Given Polyethylene Glycol (Polyethylene (Miralax) 17 Gm Pack) 17 gm PO DAILY PRN PRN Reason: Constipation Stop: 09/11/22 19:23 Prednisone (Prednisone 10 Mg Tablet) 10 mg PO DAILY KARLA Stop: 09/16/22 08:59 Last Admin: 08/20/22 10:09 Dose: Not Given Raspberry (Raspberry Syrup 5 Ml Udp) 5 ml PO DAILY KARLA Stop: 09/06/22 08:59 Last Admin: 08/20/22 10:09 Dose: Not Given Rosuvastatin Calcium (Rosuvastatin Calcium 20 Mg Tab) 20 mg PO QAM KARLA Stop: 09/06/22 08:59 Last Admin: 08/17/22 07:54 Dose: 20 mg Senna/Docusate Sodium (Docusate Sodium/Senna 50/8.6mg Tab) 1 tab PO QAM KARLA Stop: 09/11/22 19:29 Last Admin: 08/20/22 10:08 Dose: Not Given Thiamine HCl (Thiamine Hcl 50 Mg Tablet) 50 mg PO DAILY KARLA Stop: 09/06/22 08:59 Last Admin: 08/07/22 09:24 Dose: Not Given Triamcinolone Acetonide (Triamcinolone Acet 0.1% Cr 15 Gm Tube) 1 appln TOP BID PRN PRN Reason: AFFECTED AREA Stop: 09/05/22 21:52 Vancomycin HCl (Vancomycin Hcl 125 Mg/2.5ml Soln) 125 mg PO DAILY KARLA Stop: 09/06/22 08:59 Last Admin: 08/20/22 10:09 Dose: Not Given Vitamin D (Cholecalciferol 1,000 Units 25 Mcg Tab) 2,000 units PO DAILY KARLA Stop: 09/06/22 08:59 Last Admin: 08/07/22 09:22 Dose: Not Given (1) Fall Encounter type: initial encounter Qualified Code(s): W19.XXXA - Unspecified fall, initial encounter
[2022-08-20] MEDS: HYDROXYCHLOROQUINE SULFATE 200 MG TAB PO SCH (22:39)
[2022-08-20] MEDS: MONTELUKAST SODIUM 10 MG TABLET PO SCH (22:40)
[2022-08-20] MEDS: LATANOPROST 0.005% OP SOLN 2.5 ML BTL OPB SCH (22:43)
[2022-08-21] MEDS ORDERED: dilTIAZem HCl 5 MG/ML 5 ML VIAL IV STA (03:54)
[2022-08-21] MEDS ORDERED: MAGNESIUM SULFATE / D5W 1 GM/100 ML BAG IV ONE ×2 (04:00→04:50)
[2022-08-21 04:13] LABS: Basophils # (auto) 0.01 K/uL (0-0.2); Basophils % (auto) 0.1 %; Eosinophils # (auto) 0.01 K/uL (0-0.50); Eosinophils % (auto) 0.1 %; Hematocrit (blood only) 29.8 % (34.1-44.9); Hemoglobin 9.9 g/dl (12.0-16.0); Immature Granulocytes # (auto) 0.18 K/uL (0.00-0.02); Immature Granulocytes % (auto) 1.3 %; Lymphocytes # (auto) 0.94 K/uL (1.2-3.4); Lymphocytes % (auto) 6.6 %; Mean Corpuscular Hemoglobin 27.4 pg (25.0-34.0); Mean Corpuscular Hgb Conc 33.2 g/dL (32.0-36.0); Mean Corpuscular Volume 82.5 fL (80.0-100.0); Mean Platelet Volume 8.1 fL (9.4-12.3); Monocytes # (auto) 0.76 K/uL (0.24-0.82); Monocytes % (auto) 5.3 %; Neutrophils % (auto) 86.6 %; Platelet Count 247 K/uL (130-400); RDW Coefficient of Variation 16.1 % (11.5-14.5); RDW Standard Deviation 48.8 fL (36.4-46.3); Red Blood Count 3.61 M/uL (3.93-5.22)
[2022-08-21 04:31] LABS: BUN Creatinine Ratio 25.4 (10-20); Calcium 9.2 mg/dl (8.5-10.1); Creatinine Clr Calc Pharmacy 65.2 ml/min; Est GFR (African American) 104.6 ml/min; Est GFR (Non-African American) 90.3 ml/min; Magnesium 1.7 mg/dl (1.7-2.4); Potassium 3.6 mmol/L (3.5-5.1)
[2022-08-21] MEDS: POTASSIUM CHLORIDE / WTR 10 MEQ/100 ML PLCT IV SCH ×4 (05:20→08:56)
[2022-08-21] MEDS: INSULIN ASPART PER UNIT SC SCH ×5 (06:23→23:54)
[2022-08-21] MEDS: HEPARIN SOD 5,000 UNIT/0.5 ML VIAL SQ SCH ×3 (06:23→21:00)
[2022-08-21] MEDS: METOPROLOL TARTRATE 1 MG/ML VIAL IV SCH ×4 (06:24→21:47)
[2022-08-21] MEDS: amLODIPine BESYLATE 5 MG TAB PO SCH (07:57)
[2022-08-21] MEDS: CLOPIDOGREL BISULFATE 75 MG TAB PO SCH (07:57)
[2022-08-21] MEDS: DOCUSATE SODIUM/SENNA 50/8.6MG TAB PO SCH (07:57)
[2022-08-21] MEDS: FLUTICASONE/VILANTEROL 200/25MCG 14 PUFFS/INHALER INH SCH (07:58)
[2022-08-21] MEDS: MAGNESIUM OXIDE 400 MG TAB PO SCH ×2 (07:58→20:38)
[2022-08-21] MEDS: DULoxetine HCL 60 MG CAP PO SCH (07:58)
[2022-08-21] MEDS: ADVANCED PROBIOTIC 1250 MG CAPSULE PO SCH ×2 (07:58→20:38)
[2022-08-21] MEDS: PANTOprazole 40 MG TAB PO SCH (07:58)
[2022-08-21] MEDS: VANCOMYCIN HCL 125 MG/2.5ML SOLN PO SCH (07:59)
[2022-08-21] MEDS: predniSONE 10 MG TABLET PO SCH (07:59)
[2022-08-21] MEDS: RASPBERRY SYRUP 5 ML UDP PO SCH (07:59)
--- NOTE | 2022-08-21 12:21 | XRay Report ---
XR chest 1V portable HISTORY: 76 years-old Female R/O Pneumonia acute shortness of breath COMPARISON: Chest radiograph 08/17/2022 TECHNIQUE: AP view of the chest FINDINGS: Cardiac silhouette is enlarged. Lung apices are partially obscured by the patient's chin. Mild right hemidiaphragmatic elevation. No pneumothorax, large pleural effusion, overt pulmonary edema or airspa ce consolidation to suggest pneumonia. Degenerative changes of the spine and left shoulder. Reverse r ight shoulder total joint arthroplasty. Cholecystectomy. IMPRESSION: Cardiomegaly without acute process. ACT 112: Negative or not required by law. The above report was generated using voice recognition software. It may contain grammatical, syntax o r spelling errors. Electronically signed by: Brant Mccoy M.D. 08/21/2022 12:20 PM
--- NOTE | 2022-08-21 13:28 | Hospitalist Progress Note ---
Date of Service August 21, 2022 Assessment & Plan (1) Acute metabolic encephalopathy: Plan: 2/2 UTI, likely ongoing for last couple of weeks. also offers that she gets intermittently confused on a regular basis at home. Cont antibiotics for infection. Waxing/waning mental status Empirically started with IV Rocephin on admission Initial urine culture was positive for Klebsiella oxytoca and that was sensitive to ceftriaxone Repeat urinary culture grew Enterococcus faecium VRE on 09 August but the colony count was 20,000 She received a course of oral Macrobid for this infection The patient showed much improvement of her in couple apathy and noted to be alert and awake as of 08/18/202208/18 Patient was more awake and alert from Thursday to Thursday, during that time, Macrobid started for UTI secondary VRE, fever also resolved Over the weekend, patient started to be confused, drowsy again, although she remained afebrile Today, patient became very drowsy again Repeat CT head: No acute process Afebrile, with mild leukocytosis, but also has been receiving prednisone 20 mg last week, which has been decreased to 10 mg since yesterday No other infection sources identified at this time, but repeat blood cultures are pending, antibiotics escalated again to daptomycin plus cefepime Possible concussion injury from recent fall? Will consult neurology service for recommendations Worsening Change in mental status Condition deteriorated since evening of 08/18/2022 with more drowsiness She was very lethargic and almost unresponsive on 08/19/2022 Appreciate neurology input and recommendation Has had appropriate imaging studies including MRI which were negative She has started with intravenous cefepime and daptomycin for possible infection Repeat urine and blood culture came back negative White count was elevated likely secondary to use of steroid Antibiotics will be discontinued since there is a rare possibility of extreme drowsiness with the use of cefepime Remains obtunded as of this morning-opening eyes with commands and moving extremities at times Remains hemodynamically stable and afebrile Will get repeat UA, blood culture and chest x-ray (2) Fever: Plan: Patient remained febrile since admission and the temperature spiking almost every 24 hours Uncertain etiology. check repeat CXR for any developing pneumonia. Changed antibiotic regimen to include azithromycin and finished 5 days course of antibiotic Checking LE dopplers to rule out DVT-these were negative. CT chest without contrast: No lymphadenopathy or airspace consolidation typical for pneumonia. Remains minimally febrile and white count elevated secondary to RA flare? Dr. Seymour discussed with Rheum- Dr. Lucas Prednisone increased from 5mg to 20mg daily Plaquenil (discontinued few months ago), resumed Denies arthralgia except for left wrist with known fracture secondary to fall -- Reduce prednisone to 10-->5 mg daily (3) UTI (urinary tract infection): Plan: per #1 Will repeat UA and CS if needed (4) Hyponatremia: Plan: -- Sodium 136 monitor (5) Fall: Plan: Progressive weakness likely related to active infection in setting of prior h/o stroke with known residual deficits. needs SNF (6) Wrist injury: Plan: L triquetrum fracture. Orthopedics is consulted. Splint in place and she keven ears to have pain well managed. continue PRN Tylenol Cont splint and ice to area TID (7) Generalized weakness: Plan: PT/OT: SNF (8) Recurrent Clostridioides difficile infection: Plan: Seen by ID on 07/18/22. Has had 3 recurrences of c difficile diarrhea. Chronic ally on vancomycin once daily for suppression which has been keeping her BMs to 1-2 formed stools daily. She continues on this now and will not stop it until she is off the current antibiotics. Cont vanc PO once daily. No diarrhea in last 24 hours. (9) DM type 2 (diabetes mellitus, type 2): Plan: She has a slightly elevated A1C of 7.0, likely related to ongoing prednisone use. Not taking any blood glucose lowering medications at home. Pharmacy Glycemic Ctrl consulted (10) History of stroke: Plan: chronic, cont medical management. (11) CKD (chronic kidney disease), stage III: Plan: Chronic, stable. Cont monitoring and renally dose meds as needed. (12) HTN (hypertension): Plan: chronic, no changes in BP meds. (13) Depression: Plan: chronic, stable. Cont duloxetine per home regimen. (14) DVT prophylaxis: Plan: heparin Full Code Dispo- d/c to [facility] once medically stable Discussed with the in detail Admission and Anticipated Discharge Date Admission Date: August 06, 2022 Subjective 08/20/2022 The patient was seen and examined in telemetry unit She has been very drowsy this morning Only opening her eyes with commands and palpation but has not been talking and/or following any other commands Remains hemodynamically stable without any fever and or chills 08/21/2022 The patient was seen and examined in telemetry unit She remains very drowsy and obtunded Opening her eyes and moving upper extremities without following any commands Does not seems to be in any distress Review of Systems Review of Systems: Unobtainable due to cognitive status Neurologic: .Alert and awake only to opening eyes on commands. Not communicating. Occasional movements of the extremities Physical Exam Physical Exam: Lying in bed with closed eyes without any apparent distress Constitutional: well developed, well nourished, + ill appearing and average body habitus ENMT: external ear and nose normal, oropharynx normal Neck: trachea midline, no thyromegaly Respiratory: no respiratory distress Auscultation: lungs clear to auscultation bilaterally and + diminished lung sounds Cardiovascular: Rate/Rhythm: regular rate and regular rhythm; not tachycardic Heart Sounds: normal S1 and normal S2; no murmur Extremities: no edema Gastrointestinal (Abdomen): Inspection/Auscultation: normal bowel sounds; abdomen not distended Percussion/Palpation: abdomen soft; abdomen nontender Musculoskeletal: Has rheumatoid changes but no acute arthritis involving any joint Neurologic: Alert and awake. Remains obtunded and not been communicating. Occasional movement of the extremities Lymphatic: no cervical or axillary lymphadenopathy Results & Data Results & Data ([facility]) Vital Signs (Past 12 Hours) Vital Signs Temp Pulse Pulse Resp BP BP BP 08/21/22 12:51 98 H 150/70 H 08/21/22 12:09 37.1 C 109 H 17 150/70 H 08/21/22 08:00 112 H 08/21/22 08:00 08/21/22 08:24 37.0 C 100 H 21 145/56 H 08/21/22 06:24 112 H 08/21/22 03:17 36.8 C 157 H 18 143/84 H Pulse Ox O2 Del Method 08/21/22 12:51 08/21/22 12:09 95 Room Air 08/21/22 08:00 08/21/22 08:00 Room Air 08/21/22 08:24 99 Room Air 08/21/22 06:24 08/21/22 03:17 96 Room Air Laboratory Results Short CBC 08/21/22 Range/Units 04:05 WBC 14.30 H (4.8-10.8) K/ul Hgb 9.9 L (12.0-16.0) g/dl Hct 29.8 L (34.1-44.9) % Plt Count 247 (130-400) K/uL [facility] 08/21/22 04:05 Sodium 131 L Potassium 3.6 Chloride 97 L Carbon Dioxide 23 BUN 15 Creatinine 0.59 L Glucose 96 Calcium 9.2 Medications Administered Current Inpatient Medications Acetaminophen (Acetaminophen 325 Mg Tab) 650 mg PO Q4H PRN PRN Reason: pain or fever Stop: 09/10/22 13:26 Last Admin: 08/14/22 14:56 Dose: 650 mg Amlodipine Besylate (Amlodipine Besylate 5 Mg Tab) 10 mg PO DAILY [facility] Stop: 09/06/22 08:59 Last Admin: 08/21/22 07:57 Dose: Not Given Betamethasone Dipropion Augmented (Betamethasone Dip Aug (Diprolene) 0.05% Cr 15 Gm Tube) 1 appln EXT BID PRN PRN Reason: AFFECTED AREA Stop: 09/05/22 22:10 Calamine/Phenol (Menthol-Zinc Oxide 360 Appln/120 Gm Tube) 1 appln EXT BID PRN PRN Reason: AFFECTED AREA Stop: 09/05/22 21:52 Clopidogrel Bisulfate (Clopidogrel Bisulfate 75 Mg Tab) 75 mg PO QAM [facility] Stop: 09/06/22 08:59 Last Admin: 08/21/22 07:57 Dose: Not Given Cyanocobalamin (Cyanocobalamin (B-12) 500 Mcg Tablet) 2,000 mcg PO MoWeFr@0900 [facility] Stop: 09/07/22 08:59 Last Admin: 08/20/22 10:08 Dose: Not Given Dextrose (Dextrose 50% 50 Ml Syringe) 25 - 50 ml IV UD PRN; Protocol PRN Reason: Hypoglycemia Protocol Stop: 09/05/22 21:52 Duloxetine HCl (Duloxetine Hcl 60 Mg Cap) 60 mg PO DAILY [facility] Stop: 09/06/22 08:59 Last Admin: 08/21/22 07:58 Dose: Not Given Ferrous Sulfate (Ferrous Sulfate 325 Mg Tab) 325 mg PO DAILY [facility] Stop: 09/06/22 08:59 Last Admin: 08/07/22 09:22 Dose: Not Given Fluticasone/Vilanterol (Fluticasone/Vilanterol 200/25mcg 14 Puffs/Inhaler) 1 puffs INH DAILY [facility] Stop: 09/06/22 08:59 Last Admin: 08/21/22 07:58 Dose: Not Given Folic Acid (Folic Acid 1 Mg Tab) 1 mg PO QAM [facility] Stop: 09/06/22 08:59 Last Admin: 08/07/22 09:22 Dose: Not Given Glucagon (Glucagon For Inj 1 Mg Vial) 1 mg SQ UD PRN; Protocol PRN Reason: Hypoglycemia Protocol Stop: 09/05/22 21:52 Glucose (Glucose 40% Gel 15 Gm Tube) 15 - 30 gm PO UD PRN; Protocol PRN Reason: Hypoglycemia Protocol Stop: 09/05/22 21:52 Glucose (Glucose 10 Tab/Tube) 4 - 8 tab PO UD PRN; Protocol PRN Reason: Hypoglycemia Treatment Stop: 09/05/22 21:52 Heparin Sodium (Porcine) (Heparin Sod 5,000 Unit/0.5 Ml Vial) 5,000 units SQ Q8 [facility] Stop: 09/05/22 21:59 Last Admin: 08/21/22 06:23 Dose: 5,000 units Hydralazine HCl (Hydralazine Hcl 20 Mg/Ml Vial) 5 mg IV Q6H PRN PRN Reason: systolic bp > 160 Stop: 09/17/22 08:08 Hydroxychloroquine Sulfate (Hydroxychloroquine Sulfate 200 Mg Tab) 200 mg PO HS [facility] Stop: 09/12/22 20:59 Last Admin: 08/20/22 22:39 Dose: Not Given Promethazine HCl 12.5 mg/ (Sodium Chloride) 50.5 mls @ 202 mls/hr IV Q6H PRN PRN Reason: Nausea And Vomiting Stop: 09/11/22 19:23 Lactated Ringer's (Lr) 1,000 mls @ 60 mls/hr IV .[id number] [facility] Stop: 09/19/22 05:14 Last Admin: 08/20/22 22:42 Dose: 60 mls/hr Insulin Aspart (Insulin Aspart Per Unit) 0 units SC Q6 [facility] Stop: 09/19/22 17:59 Last Admin: 08/21/22 11:59 Dose: Not Given Lactobacillus Acidophilus (Advanced Probiotic 1250 Mg Capsule) 2 cap PO BID [facility] Stop: 09/05/22 21:52 Last Admin: 08/21/22 07:58 Dose: Not Given Latanoprost (Latanoprost 0.005% Op Soln 2.5 Ml Btl) 1 drops OPB HS [facility] Stop: 09/05/22 21:52 Last Admin: 08/20/22 22:43 Dose: 1 drops Levalbuterol HCl (Levalbuterol Hcl 1.25 Mg/3 Ml Neb) 1.25 mg INH Q4H PRN; Protocol PRN Reason: SOB/COUGH/WHEEZING Stop: 09/05/22 21:52 Magnesium Oxide (Magnesium Oxide 400 Mg Tab) 400 mg PO BID [facility] Stop: 09/05/22 21:52 Last Admin: 08/21/22 07:58 Dose: Not Given Metoprolol Tartrate (Metoprolol Tartrate 1 Mg/Ml Vial) 5 mg IV Q6 [facility] Stop: 09/20/22 05:59 Last Admin: 08/21/22 12:51 Dose: 5 mg Miconazole Nitrate (Miconazole Nitrate Powder 43 Gm) 1 appln EXT PRN PRN PRN Reason: Affected Skin Folds Stop: 09/10/22 09:54 Miscellaneous (Carbohydrates For Hypoglycemia ) 15 - 30 gm PO UD PRN PRN Reason: Hypoglycemia Protocol Stop: 09/05/22 21:52 Miscellaneous (Solifenacin [Vesicare]: Order Awaiting Action) 1 each N/A QS [facility] Stop: 09/06/22 07:59 Last Admin: 08/07/22 07:45 Dose: Not Given Miscellaneous Information (Pharmacy Glycemic Mgmt Consult) 1 each N/A UD PRN; Protocol PRN Reason: Consult Stop: 09/12/22 11:54 Montelukast Sodium (Montelukast Sodium 10 Mg Tablet) 10 mg PO HS [facility] Stop: 09/05/22 21:52 Last Admin: 08/20/22 22:40 Dose: Not Given Multivitamins/Minerals (Cerovite Adv Formula Tab) 1 tab PO QDL [facility] Stop: 09/06/22 11:29 Last Admin: 08/07/22 12:50 Dose: Not Given Pantoprazole Sodium (Pantoprazole 40 Mg Tab) 40 mg PO DAILY [facility] Stop: 09/06/22 08:59 Last Admin: 08/21/22 07:58 Dose: Not Given Polyethylene Glycol (Polyethylene (Miralax) 17 Gm Pack) 17 gm PO DAILY PRN PRN Reason: Constipation Stop: 09/11/22 19:23 Prednisone (Prednisone 10 Mg Tablet) 10 mg PO DAILY [facility] Stop: 09/16/22 08:59 Last Admin: 08/21/22 07:59 Dose: Not Given Raspberry (Raspberry Syrup 5 Ml Udp) 5 ml PO DAILY [facility] Stop: 09/06/22 08:59 Last Admin: 08/21/22 07:59 Dose: Not Given Rosuvastatin Calcium (Rosuvastatin Calcium 20 Mg Tab) 20 mg PO QAM [facility] Stop: 09/06/22 08:59 Last Admin: 08/17/22 07:54 Dose: 20 mg Senna/Docusate Sodium (Docusate Sodium/Senna 50/8.6mg Tab) 1 tab PO QAM [facility] Stop: 09/11/22 19:29 Last Admin: 08/21/22 07:57 Dose: Not Given Thiamine HCl (Thiamine Hcl 50 Mg Tablet) 50 mg PO DAILY [facility] Stop: 09/06/22 08:59 Last Admin: 08/07/22 09:24 Dose: Not Given Triamcinolone Acetonide (Triamcinolone Acet 0.1% Cr 15 Gm Tube) 1 appln TOP BID PRN PRN Reason: AFFECTED AREA Stop: 09/05/22 21:52 Vancomycin HCl (Vancomycin Hcl 125 Mg/2.5ml Soln) 125 mg PO DAILY [facility] Stop: 09/06/22 08:59 Last Admin: 08/21/22 07:59 Dose: Not Given Vitamin D (Cholecalciferol 1,000 Units 25 Mcg Tab) 2,000 units PO DAILY [facility] Stop: 09/06/22 08:59 Last Admin: 08/07/22 09:22 Dose: Not Given (1) Fall Encounter type: initial encounter Qualified Code(s): W19.XXXA - Unspecified f all, initial encounter
[2022-08-21] MEDS: LACTATED RINGER'S 1,000 ML IV SCH (14:12)
[2022-08-21 17:59] LABS: Appearance Urine Clear (Clear); Bacteria Urine Automated Negative (Negative); Bilirubin Urine Negative (Negative); Blood Urine 2+ (Negative); Cast Urine Automated 0 /lpf (0-5); Color Urine Yellow; Glucose Urine UA Negative (Negative); Ketones Urine 1+ (Negative); Leukocyte Esterase Urine Negative (Negative); Nitrite Urine Positive (Negative); Protein Urine 2+ (Negative); Specific Gravity Urine 1.013 (1.000-1.030); Urobilinogen Urine Negative (Negative)
[2022-08-21] MEDS: LATANOPROST 0.005% OP SOLN 2.5 ML BTL OPB SCH (20:38)
[2022-08-21] MEDS: HYDROXYCHLOROQUINE SULFATE 200 MG TAB PO SCH (20:38)
[2022-08-21] MEDS: MONTELUKAST SODIUM 10 MG TABLET PO SCH (20:38)
[2022-08-22] MEDS ORDERED: dilTIAZem HCl 5 MG/ML 5 ML VIAL IV STA (02:45)
[2022-08-22] MEDS: INSULIN ASPART PER UNIT SC SCH ×3 (05:15→18:51)
[2022-08-22] MEDS: METOPROLOL TARTRATE 1 MG/ML VIAL IV SCH ×4 (05:23→23:13)
[2022-08-22] MEDS: HEPARIN SOD 5,000 UNIT/0.5 ML VIAL SQ SCH ×3 (05:23→21:27)
[2022-08-22] MEDS: LACTATED RINGER'S 1,000 ML IV SCH ×2 (05:58→22:40)
[2022-08-22 07:10] LABS: Basophils # (auto) 0.02 K/uL (0-0.2); Basophils % (auto) 0.1 %; Eosinophils # (auto) 0.03 K/uL (0-0.50); Eosinophils % (auto) 0.2 %; Hematocrit (blood only) 26.1 % (34.1-44.9); Hemoglobin 8.7 g/dl (12.0-16.0); Immature Granulocytes # (auto) 0.22 K/uL (0.00-0.02); Immature Granulocytes % (auto) 1.3 %; Lymphocytes # (auto) 1.56 K/uL (1.2-3.4); Mean Corpuscular Hemoglobin 27.3 pg (25.0-34.0); Mean Corpuscular Hgb Conc 33.3 g/dL (32.0-36.0); Mean Corpuscular Volume 81.8 fL (80.0-100.0); Mean Platelet Volume 8.3 fL (9.4-12.3); Monocytes # (auto) 0.52 K/uL (0.24-0.82); Neutrophils # (auto) 15.03 K/uL (1.4-6.5); Neutrophils % (auto) 86.4 %; Platelet Count 279 K/uL (130-400); RDW Coefficient of Variation 15.9 % (11.5-14.5); RDW Standard Deviation 47.9 fL (36.4-46.3); Red Blood Count 3.19 M/uL (3.93-5.22); White Blood Count 17.38 K/ul (4.8-10.8)
[2022-08-22 07:33] LABS: Albumin Globulin Ratio 0.6 (0.9-2); Albumin Level 2.3 gm/dl (3.4-5.0); BUN Creatinine Ratio 21.9 (10-20); Bilirubin,Total 0.5 mg/dl (0.2-1.0); Calcium 8.8 mg/dl (8.5-10.1); Creatinine Clr Calc Pharmacy 59.5 ml/min; Est GFR (African American) 101.9 ml/min; Est GFR (Non-African American) 87.9 ml/min; Globulin 3.6 gm/dl (2.5-4.0); Potassium 3.3 mmol/L (3.5-5.1); Total Protein 5.9 gm/dl (6.0-8.3)
[2022-08-22] MEDS: CYANOCOBALAMIN (B-12) 500 MCG TABLET PO SCH (08:13)
[2022-08-22] MEDS: CLOPIDOGREL BISULFATE 75 MG TAB PO SCH (08:13)
[2022-08-22] MEDS: amLODIPine BESYLATE 5 MG TAB PO SCH (08:13)
[2022-08-22] MEDS: FLUTICASONE/VILANTEROL 200/25MCG 14 PUFFS/INHALER INH SCH (08:14)
[2022-08-22] MEDS: MAGNESIUM OXIDE 400 MG TAB PO SCH ×2 (08:14→21:22)
[2022-08-22] MEDS: ADVANCED PROBIOTIC 1250 MG CAPSULE PO SCH ×2 (08:14→21:22)
[2022-08-22] MEDS: PANTOprazole 40 MG TAB PO SCH (08:14)
[2022-08-22] MEDS: DULoxetine HCL 60 MG CAP PO SCH (08:14)
[2022-08-22] MEDS: DOCUSATE SODIUM/SENNA 50/8.6MG TAB PO SCH (08:14)
[2022-08-22] MEDS: predniSONE 10 MG TABLET PO SCH (08:15)
[2022-08-22] MEDS: RASPBERRY SYRUP 5 ML UDP PO SCH (08:15)
[2022-08-22] MEDS: VANCOMYCIN HCL 125 MG/2.5ML SOLN PO SCH (08:15)
[2022-08-22] MEDS: POTASSIUM CHLORIDE / WTR 10 MEQ/100 ML PLCT IV SCH ×2 (08:20→09:45)
--- NOTE | 2022-08-22 11:46 | Pharmacy Report ---
Pharmacy Glycemic Short Note 2 - Date of Service August 22, 2022 - Glycemic Short BSG Results (Last 24 hours): 08/21/22 08/21/22 08/21/22 11:52 18:22 23:52 Glucose POC Glucose 131 H 114 H 87 08/22/22 08/22/22 04:33 06:25 Glucose 81 POC Glucose 96 OUTPATIENT ANTIDIABETIC REGIMEN: * none ASSESSMENT: 08/22/22 * Significantly decreased oral intake * BSGs yesterday were [phone] mg/dL * BSG this morning was 96 mg/dL and 88 mg/dL lunch time * Patient has not received any basal or bolus since 08/19 dinner times * Patient has not been eating - will continue to hold basal 08/19/22 * Patient's BSGs yesterday were [phone] mg/dL. Patient received 13 units of insulin yesterday (12 units of basal and 1 unit of bolus). * Fasting BSG was 157 mg/dL. Held off on basal insulin due to patient's NPO status. * Prednisone held yesterday and today. * Lunch BSG was 164 mg/dL. * Lantus given at half-dose due to NPO status. * Continue Novolog. 08/18/22 * Patient's BSGs yesterday were [phone] mg/dL. Patient continues on prednisone 10 mg daily. * Fasting today is 161 mg/dL which is elevated from yesterday. Patient has been stable on Lantus 12 units for several days so will not increase Lantus at this point. * Loosen CF as patient overcorrects when BSG elevated. Tighten CR due to steroid use. 08/14 * Patient received 18 units of insulin yesterday, of which 10 were basal * Slight increase to 12 units of Lantus this AM * Mealtime BSGs still elevated, but downtrending, continue current Novolog parameters 08/13 * Patient is 76 y/o F admitted for UTI/pneumonia. Pharmacy is consulted for hyperglycemia management * BSGs in the past 24 hours have been within goal range, 10 units of insulin given yesterday of which 10 were basal * Lunchtime BSG of 310/333/317 * Patient on 5mg prednisone at home, increased to 20mg yesterday afternoon * Will give nighttime basal insulin now x1 (hold HS dose), tighten Novolog parameters, and monitor for continued hyperglycemia PLAN FOR INPATIENT GLYCEMIC CONTROL: * Hold outpatient oral diabetes medications * Basal insulin * Lantus on hold * Bolus insulin * NovoLog per scale ACHS or Q6hrs while NPO * Goal Range: Low 110 mg/dL - High 140 mg/dL * Correction Factor: 30 mg/dL/unit * Nutritional / Prandial insulin per carb ratio on hold since patient is not eating
--- NOTE | 2022-08-22 13:58 | Hospitalist Progress Note ---
Date of Service August 22, 2022 Assessment & Plan (1) Acute metabolic encephalopathy: Plan: 2/2 UTI, likely ongoing for last couple of weeks. also offers that she gets intermittently confused on a regular basis at home. Cont antibiotics for infection. Waxing/waning mental status Empirically started with IV Rocephin on admission Initial urine culture was positive for Klebsiella oxytoca and that was sensitive to ceftriaxone Repeat urinary culture grew Enterococcus faecium VRE on 09 August but the colony count was 20,000 She received a course of oral Macrobid for this infection The patient showed much improvement of her in couple apathy and noted to be alert and awake as of 08/18/202208/18 Patient was more awake and alert from Thursday to Thursday, during that time, Macrobid started for UTI secondary VRE, fever also resolved Over the weekend, patient started to be confused, drowsy again, although she remained afebrile Today, patient became very drowsy again Repeat CT head: No acute process Afebrile, with mild leukocytosis, but also has been receiving prednisone 20 mg last week, which has been decreased to 10 mg since yesterday No other infection sources identified at this time, but repeat blood cultures are pending, antibiotics escalated again to daptomycin plus cefepime Possible concussion injury from recent fall? Will consult neurology service for recommendations Worsening Change in mental status Condition deteriorated since evening of 08/18/2022 with more drowsiness She was very lethargic and almost unresponsive on 08/19/2022 Appreciate neurology input and recommendation Has had appropriate imaging studies including MRI which were negative She has started with intravenous cefepime and daptomycin for possible infection Repeat urine and blood culture came back negative White count was elevated likely secondary to use of steroid Antibiotics will be discontinued since there is a rare possibility of extreme drowsiness with the use of cefepime Remains obtunded as of this morning-opening eyes with commands and moving extremities at times Remains hemodynamically stable and afebrile Will get repeat UA, blood culture and chest x-ray-no source of infection Remains obtunded without any acute distress Discussed with the and will continue to observe (2) Fever: Plan: Patient remained febrile since admission and the temperature spiking almost every 24 hours Uncertain etiology. check repeat CXR for any developing pneumonia. Changed antibiotic regimen to include azithromycin and finished 5 days course of antibiotic Checking LE dopplers to rule out DVT-these were negative. CT chest without contrast: No lymphadenopathy or airspace consolidation typical for pneumonia. Remains minimally febrile and white count elevated Temperature remains around 37.6 secondary to RA flare? Dr. Seymour discussed with Rheum- Dr. Lucas Prednisone increased from 5mg to 20mg daily Plaquenil (discontinued few months ago), resumed Denies arthralgia except for left wrist with known fracture secondary to fall -- Reduce prednisone to 10-->5 mg daily (3) UTI (urinary tract infection): Plan: per #1 Will repeat UA and CS if needed Repeat UA came back negative for any infection (4) Hyponatremia: Plan: -- Sodium 136 monitor (5) Fall: Plan: Progressive weakness likely related to active infection in setting of prior h/o stroke with known residual deficits. needs SNF (6) Wrist injury: Plan: L triquetrum fracture. Orthopedics is consulted. Splint in place and she appears to have pain well managed. continue PRN Tylenol Cont splint and ice to area TID (7) Generalized weakness: Plan: PT/OT: SNF (8) Recurrent Clostridioides difficile infection: Plan: Seen by ID on 07/18/22. Has had 3 recurrences of c difficile diarrhea. Medical Scribe nically on vancomycin once daily for suppression which has been keeping her BMs to 1-2 formed stools daily. She continues on this now and will not stop it until she is off the current antibiotics. Cont vanc PO once daily. No diarrhea in last 24 hours. Still getting vancomycin (9) DM type 2 (diabetes mellitus, type 2): Plan: She has a slightly elevated A1C of 7.0, likely related to ongoing prednisone use. Not taking any blood glucose lowering medications at home. Pharmacy Glycemic Ctrl consulted (10) History of stroke: Plan: chronic, cont medical management. (11) CKD (chronic kidney disease), stage III: Plan: Chronic, stable. Cont monitoring and renally dose meds as needed. (12) HTN (hypertension): Plan: chronic, no changes in BP meds. (13) Depression: Plan: chronic, stable. Cont duloxetine per home regimen. (14) DVT prophylaxis: Plan: heparin Full Code Dispo- d/c to [facility] once medically stable Discussed with the in detail Admission and Anticipated Discharge Date Admission Date: August 06, 2022 Subjective 08/20/2022 The patient was seen and examined in telemetry unit She has been very drowsy this morning Only opening her eyes with commands and palpation but has not been talking and/or following any other commands Remains hemodynamically stable without any fever and or chills 08/21/2022 The patient was seen and examined in telemetry unit She remains very drowsy and obtunded Opening her eyes and moving upper extremities without following any commands Does not seems to be in any distress 08/22/2022 The patient was seen and examined in telemetry unit She remains very lethargic and has not been communicating She is noted to have tachycardia around 140s yesterday but this morning seems to be around 100 She did not have any fever and or chills Review of Systems Review of Systems: Unobtainable due to cognitive status Neurologic: .Alert and awake only to opening eyes on commands. Not com municating. Occasional movements of the extremities Physical Exam Physical Exam: Lying in bed with closed eyes without any apparent distress Constitutional: well developed, well nourished, + ill appearing and average body habitus ENMT: external ear and nose normal, oropharynx normal Neck: trachea midline, no thyromegaly Respiratory: no respiratory distress Auscultation: lungs clear to auscultation bilaterally and + diminished lung sounds Cardiovascular: Rate/Rhythm: regular rate and regular rhythm; not tachycardic Heart Sounds: normal S1 and normal S2; no murmur Extremities: no edema Gastrointestinal (Abdomen): Inspection/Auscultation: normal bowel sounds; abdomen not distended Percussion/Palpation: abdomen soft; abdomen nontender Musculoskeletal: Has rheumatoid changes without any acute arthritis involving any joint Neurologic: Alert and awake. Not in any acute distress but very lethargic and is noncommunicative Lymphatic: no cervical or axillary lymphadenopathy Results & Data Results & Data ([facility]) Vital Signs (Past 12 Hours) Vital Signs Temp Pulse Pulse Resp BP BP BP 08/22/22 13:04 106 H 154/86 H 08/22/22 12:06 37.6 C H 105 H 18 155/76 H 08/22/22 08:00 120 H 08/22/22 08:00 08/22/22 08:01 37.2 C 89 21 155/67 H 08/22/22 05:23 115 H 136/81 08/22/22 02:42 36.7 C 122 H 18 157/74 H Pulse Ox O2 Del Method 08/22/22 13:04 08/22/22 12:06 96 Room Air 08/22/22 08:00 08/22/22 08:00 Room Air 08/22/22 08:01 96 Room Air 08/22/22 05:23 08/22/22 02:42 98 Room Air Laboratory Results Short CBC 08/22/22 Range/Units 06:25 WBC 17.38 H (4.8-10.8) K/ul Hgb 8.7 L (12.0-16.0) g/dl Hct 26.1 L (34.1-44.9) % Plt Count 279 (130-400) K/uL BMP 08/22/22 06:25 Sodium 132 L Potassium 3.3 L Chloride 97 L Carbon Dioxide 25 BUN 14 Creatinine 0.64 Glucose 81 Calcium 8.8 Liver Function 08/22/22 Range/Units 06:25 Total Bilirubin 0.5 (0.2-1.0) mg/dl AST 62 H (13-39) U/L ALT 61 H (7-52) U/L Alkaline Phosphatase 214 H (34-104) U/L Albumin 2.3 L (3.4-5.0) gm/dl Urine 08/21/22 Range/Units 17:37 Urine Color Yellow Urine Appearance Clear (Clear) Urine pH 6.0 (4.5-7.5) Ur Specific Williams 1.013 (1.000-1.030) Urine Protein 2+ H (Negative) Urine Glucose (UA) Negative (Negative) Medications Administered Current Inpatient Medications Acetaminophen (Acetaminophen 325 Mg Tab) 650 mg PO Q4H PRN PRN Reason: pain or fever Stop: 09/10/22 13:26 Last Admin: 08/14/22 14:56 Dose: 650 mg Amlodipine Besylate (Amlodipine Besylate 5 Mg Tab) 10 mg PO DAILY KARLA Stop: 09/06/22 08:59 Last Admin: 08/22/22 08:13 Dose: Not Given Betamethasone Dipropion Augmented (Betamethasone Dip Aug (Diprolene) 0.05% Cr 15 Gm Tube) 1 appln EXT BID PRN PRN Reason: AFFECTED AREA Stop: 09/05/22 22:10 Calamine/Phenol (Menthol-Zinc Oxide 360 Appln/120 Gm Tube) 1 appln EXT BID PRN PRN Reason: AFFECTED AREA Stop: 09/05/22 21:52 Clopidogrel Bisulfate (Clopidogrel Bisulfate 75 Mg Tab) 75 mg PO QAM KARLA Stop: 09/06/22 08:59 Last Admin: 08/22/22 08:13 Dose: Not Given Cyanocobalamin (Cyanocobalamin (B-12) 500 Mcg Tablet) 2,000 mcg PO MoWeFr@0900 KARLA Stop: 09/07/22 08:59 Last Admin: 08/22/22 08:13 Dose: Not Given Dextrose (Dextrose 50% 50 Ml Syringe) 25 - 50 ml IV UD PRN; Protocol PRN Reason: Hypoglycemia Protocol Stop: 09/05/22 21:52 Duloxetine HCl (Duloxetine Hcl 60 Mg Cap) 60 mg PO DAILY [facility] Stop: 09/06/22 08:59 Last Admin: 08/22/22 08:14 Dose: Not Given Ferrous Sulfate (Ferrous Sulfate 325 Mg Tab) 325 mg PO DAILY KARLA Stop: 09/06/22 08:59 Last Admin: 08/07/22 09:22 Dose: Not Given Fluticasone/Vilanterol (Fluticasone/Vilanterol 200/25mcg 14 Puffs/Inhaler) 1 puffs INH DAILY KARLA Stop: 09/06/22 08:59 Last Admin: 08/22/22 08:14 Dose: Not Given Folic Acid (Folic Acid 1 Mg Tab) 1 mg PO QAM [facility] Stop: 09/06/22 08:59 Last Admin: 08/07/22 09:22 Dose: Not Given Glucagon (Glucagon For Inj 1 Mg Vial) 1 mg SQ UD PRN; Protocol PRN Reason: Hypoglycemia Protocol Stop: 09/05/22 21:52 Glucose (Glucose 40% Gel 15 Gm Tube) 15 - 30 gm PO UD PRN; Protocol PRN Reason: Hypoglycemia Protocol Stop: 09/05/22 21:52 Glucose (Glucose 10 Tab/Tube) 4 - 8 tab PO UD PRN; Protocol PRN Reason: Hypoglycemia Treatment Stop: 09/05/22 21:52 Heparin Sodium (Porcine) (Heparin Sod 5,000 Unit/0.5 Ml Vial) 5,000 units SQ Q8 KARLA Stop: 09/05/22 21:59 Last Admin: 08/22/22 05:23 Dose: 5,000 units Hydralazine HCl (Hydralazine Hcl 20 Mg/Ml Vial) 5 mg IV Q6H PRN PRN Reason: systolic bp > 160 Stop: 09/17/22 08:08 Hydroxychloroquine Sulfate (Hydroxychloroquine Sulfate 200 Mg Tab) 200 mg PO [facility] Stop: 09/12/22 20:59 Last Admin: 08/21/22 20:38 Dose: Not Given Promethazine HCl 12.5 mg/ (Sodium Chloride) 50.5 mls @ 202 mls/hr IV Q6H PRN PRN Reason: Nausea And Vomiting Stop: 09/11/22 19:23 Lactated Ringer's (Lr) 1,000 mls @ 60 mls/hr IV .[id number] [facility] Stop: 09/19/22 05:14 Last Admin: 08/22/22 05:58 Dose: 60 mls/hr Insulin Aspart (Insulin Aspart Per Unit) 0 units SC Q6 [facility] Stop: 09/19/22 17:59 Last Admin: 08/22/22 12:17 Dose: Not Given Lactobacillus Acidophilus (Advanced Probiotic 1250 Mg Capsule) 2 cap PO BID [facility] Stop: 09/05/22 21:52 Last Admin: 08/22/22 08:14 Dose: Not Given Latanoprost (Latanoprost 0.005% Op Soln 2.5 Ml Btl) 1 drops OPB [facility] Stop: 09/05/22 21:52 Last Admin: 08/21/22 20:38 Dose: 1 drops Levalbuterol HCl (Levalbuterol Hcl 1.25 Mg/3 Ml Neb) 1.25 mg INH Q4H PRN; Protocol PRN Reason: SOB/COUGH/WHEEZING Stop: 09/05/22 21:52 Magnesium Oxide (Magnesium Oxide 400 Mg Tab) 400 mg PO BID [facility] Stop: 09/05/22 21:52 Last Admin: 08/22/22 08:14 Dose: Not Given Metoprolol Tartrate (Metoprolol Tartrate 1 Mg/Ml Vial) 5 mg IV Q6 [facility] Stop: 09/20/22 05:59 Last Admin: 08/22/22 13:04 Dose: 5 mg Miconazole Nitrate (Miconazole Nitrate Powder 43 Gm) 1 appln EXT PRN PRN PRN Reason: Affected Skin Folds Stop: 09/10/22 09:54 Miscellaneous (Carbohydrates For Hypoglycemia ) 15 - 30 gm PO UD PRN PRN Reason: Hypoglycemia Protocol Stop: 09/05/22 21:52 Miscellaneous (Solifenacin [Vesicare]: Order Awaiting Action) 1 each N/A QS [facility]LA Stop: 09/06/22 07:59 Last Admin: 08/07/22 07:45 Dose: Not Given Miscellaneous Information (Pharmacy Glycemic Mgmt Consult) 1 each N/A UD PRN; Protocol PRN Reason: Consult Stop: 09/12/22 11:54 Montelukast Sodium (Montelukast Sodium 10 Mg Tablet) 10 mg PO HS [facility]LA Stop: 09/05/22 21:52 Last Admin: 08/21/22 20:38 Dose: Not Given Multivitamins/Minerals (Cerovite Adv Formula Tab) 1 tab PO QDL [facility] Stop: 09/06/22 11:29 Last Admin: 08/07/22 12:50 Dose: Not Given Pantoprazole Sodium (Pantoprazole 40 Mg Tab) 40 mg PO DAILY [facility] Stop: 09/06/22 08:59 Last Admin: 08/22/22 08:14 Dose: Not Given Polyethylene Glycol (Polyethylene (Miralax) 17 Gm Pack) 17 gm PO DAILY PRN PRN Reason: Constipation Stop: 09/11/22 19:23 Prednisone (Prednisone 10 Mg Tablet) 10 mg PO DAILY [facility] Stop: 09/16/22 08:59 Last Admin: 08/22/22 08:15 Dose: Not Given Raspberry (Raspberry Syrup 5 Ml Udp) 5 ml PO DAILY [facility] Stop: 09/06/22 08:59 Last Admin: 08/22/22 08:15 Dose: Not Given Rosuvastatin Calcium (Rosuvastatin Calcium 20 Mg Tab) 20 mg PO QAM [facility] Stop: 09/06/22 08:59 Last Admin: 08/17/22 07:54 Dose: 20 mg Senna/Docusate Sodium (Docusate Sodium/Senna 50/8.6mg Tab) 1 tab PO QAM KARLA Stop: 09/11/22 19:29 Last Admin: 08/22/22 08:14 Dose: Not Given Thiamine HCl (Thiamine Hcl 50 Mg Tablet) 50 mg PO DAILY KARLA Stop: 09/06/22 08:59 Last Admin: 08/07/22 09:24 Dose: Not Given Triamcinolone Acetonide (Triamcinolone Acet 0.1% Cr 15 Gm Tube) 1 appln TOP BID PRN PRN Reason: AFFECTED AREA Stop: 09/05/22 21:52 Vancomycin HCl (Vancomycin Hcl 125 Mg/2.5ml Soln) 125 mg PO DAILY [facility] Stop: 09/06/22 08:59 Last Admin: 08/22/22 08:15 Dose: Not Given Vitamin D (Cholecalciferol 1,000 Units 25 Mcg Tab) 2,000 units PO DAILY [facility]ARLA Stop: 09/06/22 08:59 Last Admin: 08/07/22 09:22 Dose: Not Given (1) Fall Encounter type: initial encounter Qualified Code(s): W19.XXXA - Unspecified fall, initial encounter
--- NOTE | 2022-08-22 16:52 | Electrocardiogram Report ---
Test Reason : Blood Pressure : / mmHG Vent. Rate : 118 BPM Atrial Rate : 119 BPM P-R Int : 168 ms QRS Dur : 106 ms QT Int : 300 ms P-R-T Axes : -23 042 -36 degrees QTc Int : 420 ms Sinus tachycardia Incomplete right bundle branch block Abnormal ECG When compared with ECG of 19-AUG-2022 01:19, Sinus rhythm has replaced Atrial fibrillation Confirmed by Wood Michel ([id number]) on 08/22/2022 4:52:17 PM Referred By: REFERRED SELF Confirmed By:Wood Michel
[2022-08-22] MEDS: HYDROXYCHLOROQUINE SULFATE 200 MG TAB PO SCH (21:22)
[2022-08-22] MEDS: MONTELUKAST SODIUM 10 MG TABLET PO SCH (21:22)
[2022-08-22] MEDS: LATANOPROST 0.005% OP SOLN 2.5 ML BTL OPB SCH (21:27)
[2022-08-23] MEDS: INSULIN ASPART PER UNIT SC SCH ×5 (00:16→23:52)
[2022-08-23] MEDS ORDERED: dilTIAZem HCl 5 MG/ML 5 ML VIAL IV STA (01:32)
[2022-08-23] MEDS: METOPROLOL TARTRATE 1 MG/ML VIAL IV SCH ×4 (05:38→23:52)
[2022-08-23] MEDS: HEPARIN SOD 5,000 UNIT/0.5 ML VIAL SQ SCH ×3 (06:37→21:46)
[2022-08-23] MEDS: amLODIPine BESYLATE 5 MG TAB PO SCH (08:40)
[2022-08-23] MEDS: CLOPIDOGREL BISULFATE 75 MG TAB PO SCH (08:41)
[2022-08-23] MEDS: DULoxetine HCL 60 MG CAP PO SCH (08:41)
[2022-08-23] MEDS: PANTOprazole 40 MG TAB PO SCH (08:41)
[2022-08-23] MEDS: predniSONE 10 MG TABLET PO SCH (08:41)
[2022-08-23] MEDS: FLUTICASONE/VILANTEROL 200/25MCG 14 PUFFS/INHALER INH SCH (08:41)
[2022-08-23] MEDS: RASPBERRY SYRUP 5 ML UDP PO SCH (08:41)
[2022-08-23] MEDS: ADVANCED PROBIOTIC 1250 MG CAPSULE PO SCH ×2 (08:41→21:45)
[2022-08-23] MEDS: DOCUSATE SODIUM/SENNA 50/8.6MG TAB PO SCH (08:41)
[2022-08-23] MEDS: MAGNESIUM OXIDE 400 MG TAB PO SCH ×2 (08:41→21:43)
[2022-08-23] MEDS: VANCOMYCIN HCL 125 MG/2.5ML SOLN PO SCH (08:42)
[2022-08-23 09:13] LABS: BUN Creatinine Ratio 25.8 (10-20); Calcium 8.3 mg/dl (8.5-10.1); Creatinine Clr Calc Pharmacy 62.2 ml/min; Est GFR (Non-African American) 88.8 ml/min; Magnesium 1.6 mg/dl (1.7-2.4); Potassium 3.3 mmol/L (3.5-5.1)
[2022-08-23 09:24] LABS: Basophils # (auto) 0.03 K/uL (0-0.2); Basophils % (auto) 0.2 %; Eosinophils # (auto) 0.04 K/uL (0-0.50); Eosinophils % (auto) 0.3 %; Hematocrit (blood only) 25.8 % (34.1-44.9); Hemoglobin 8.4 g/dl (12.0-16.0); Immature Granulocytes # (auto) 0.13 K/uL (0.00-0.02); Lymphocytes # (auto) 1.29 K/uL (1.2-3.4); Lymphocytes % (auto) 9.7 %; Mean Corpuscular Hgb Conc 32.6 g/dL (32.0-36.0); Mean Platelet Volume 9.2 fL (9.4-12.3); Monocytes # (auto) 0.69 K/uL (0.24-0.82); Monocytes % (auto) 5.2 %; Neutrophils # (auto) 11.11 K/uL (1.4-6.5); Neutrophils % (auto) 83.6 %; Platelet Count 318 K/uL (130-400); RDW Coefficient of Variation 15.9 % (11.5-14.5); RDW Standard Deviation 48.1 fL (36.4-46.3); Red Blood Count 3.11 M/uL (3.93-5.22); White Blood Count 13.29 K/ul (4.8-10.8)
--- NOTE | 2022-08-23 11:52 | Pharmacy Report ---
Pharmacy Glycemic Sign Off Nt - Date of Service August 23, 2022 - Assessment & Plan ASSESSMENT: * Pharmacy was consulted by Dr Johnson on 08/13/22 for glycemic control and to write orders per [facility] inpatient glycemic control protocol. * Major changes made by pharmacy to antidiabetic regimen include: * titration of basal/bolus insulin * Patient has been receiving/requiring 0 units of insulin per day for adequate glycemic control * BSGs ranging 86-96 mg/dl * Regimen has only required minor adjustments over the past 48hrs to achieve this level of control * Patient with previously poorly controlled BSGs likely related to steroids * Last dose of administered prednisone was 08/17/22 PLAN FOR INPATIENT GLYCEMIC CONTROL: No changes needed to current regimen. * No basal * Continue NovoLog per scale ACHS/Q6hrs while NPO * Goal range = 110 -140 mg/dl * CF = 30 mg/dl/unit * No carb coverage * Pharmacy is signing off of glycemic consult and will no longer be making adjustments to inpatient regimen. Please feel free to re-consult if needed. Thank you.
[2022-08-23] MEDS: LACTATED RINGER'S 1,000 ML IV SCH (13:03)
[2022-08-23] MEDS ORDERED: MAGNESIUM SULFATE / D5W 1 GM/100 ML BAG IV ONE (14:27)
[2022-08-23] MEDS: POTASSIUM CHLORIDE / WTR 10 MEQ/100 ML PLCT IV SCH ×2 (15:35→16:42)
--- NOTE | 2022-08-23 16:47 | Hospitalist Progress Note ---
Date of Service August 23, 2022 Assessment & Plan (1) Acute metabolic encephalopathy: Plan: 2/2 UTI, likely ongoing for last couple of weeks. also offers that she gets intermittently confused on a regular basis at home. Cont antibiotics for infection. Waxing/waning mental status Empirically started with IV Rocephin on admission Initial urine culture was positive for Klebsiella oxytoca and that was sensitive to ceftriaxone Repeat urinary culture grew Enterococcus faecium VRE on 09 August but the colony count was 20,000 She received a course of oral Macrobid for this infection The patient showed much improvement of her in couple apathy and noted to be alert and awake as of 08/18/202208/18 Patient was more awake and alert from Thursday to Thursday, during that time, Macrobid started for UTI secondary VRE, fever also resolved Over the weekend, patient started to be confused, drowsy again, although she remained afebrile Today, patient became very drowsy again Repeat CT head: No acute process Afebrile, with mild leukocytosis, but also has been receiving prednisone 20 mg last week, which has been decreased to 10 mg since yesterday No other infection sources identified at this time, but repeat blood cultures are pending, antibiotics escalated again to daptomycin plus cefepime Possible concussion injury from recent fall? Will consult neurology service for recommendations Worsening Change in mental status Condition deteriorated since evening of 08/18/2022 with more drowsiness She was very lethargic and almost unresponsive on 08/19/2022 Appreciate neurology input and recommendation Has had appropriate imaging studies including MRI which were negative She has started with intravenous cefepime and daptomycin for possible infection Repeat urine and blood culture came back negative White count was elevated likely secondary to use of steroid Antibiotics will be discontinued since there is a rare possibility of extreme drowsiness with the use of cefepime Remains obtunded as of this morning-opening eyes with commands and moving extrem ities at times Remains hemodynamically stable and afebrile Will get repeat UA, blood culture and chest x-ray-no source of infection Remains obtunded without any acute distress Discussed with the and will continue to observe-no change in her condition No signs and or symptoms of infection Will insert course F and start feeding and will get palliative care evaluation on Thursday Episodes of tachycardia Received 2 doses of 10 mg Cardizem IV on consecutive nights EKG did not show any arrhythmias except sinus rhythm and sinus arrhythmias Will monitor (2) Fever: Plan: Patient remained febrile since admission and the temperature spiking almost every 24 hours Uncertain etiology. check repeat CXR for any developing pneumonia. Changed antibiotic regimen to include azithromycin and finished 5 days course of antibiotic Checking LE dopplers to rule out DVT-these were negative. CT chest without contrast: No lymphadenopathy or airspace consolidation typical for pneumonia. Remains minimally febrile and white count elevated Temperature remains around 37.6 White count has been improving and no more fever and or chills Repeat blood cultures have been negative secondary to RA flare? Dr. Seymour discussed with Rheum- Dr. Lucas Prednisone increased from 5mg to 20mg daily Plaquenil (discontinued few months ago), resumed Denies arthralgia except for left wrist with known fracture secondary to fall -- Reduce prednisone to 10-->5 mg daily (3) UTI (urinary tract infection): Plan: per #1 Will repeat UA and CS if needed Repeat UA came back negative for any infection (4) Hyponatremia: Plan: -- Sodium 136 monitor (5) Fall: Plan: Progressive weakness likely related to active infection in setting of prior h/o stroke with known residual deficits. needs SNF (6) Wrist injury: Plan: L triquetrum fracture. Orthopedics is consulted. Splint in place and she appears to have pain well managed. continue PRN Tylenol Cont splint and ice to area TID (7) Generalized weakness: Plan: PT/OT: SNF (8) Recurrent Clostridioides difficile infection: Plan: Seen by ID on 07/18/22. Has had 3 recurrences of c difficile diarrhea. Chronically on vancomycin once daily for suppression which has been keeping her BMs to 1-2 formed stools daily. She continues on this now and will not stop it until she is off the current antibiotics. Cont vanc PO once daily. No diarrhea in last 24 hours. Still getting vancomycin No diarrhea and/or abdominal symptoms (9) DM type 2 (diabetes mellitus, type 2): Plan: She has a slightly elevated A1C of 7.0, likely related to ongoing prednisone use. Not taking any blood glucose lowering medications at home. Pharmacy Glycemic Ctrl consulted-signed off (10) History of stroke: Plan: chronic, cont medical management. (11) CKD (chronic kidney disease), stage III: Plan: Chronic, stable. Cont monitoring and renally dose meds as needed. (12) HTN (hypertension): Plan: chronic, no changes in BP meds. (13) Depression: Plan: chronic, stable. Cont duloxetine per home regimen. (14) DVT prophylaxis: Plan: heparin Full Code Dispo- d/c to [facility] once medically stable Discussed with the in detail Admission and Anticipated Discharge Date Admission Date: August 06, 2022 Subjective 08/20/2022 The patient was seen and examined in telemetry unit She has been very drowsy this morning Only opening her eyes with commands and palpation but has not been talking and/or following any other commands Remains hemodynamically stable without any fever and or chills 08/21/2022 The patient was seen and examined in telemetry unit She remains very drowsy and obtunded Opening her eyes and moving upper extremities without following any commands Does not seems to be in any distress 08/22/2022 The patient was seen and examined in telemetry unit She remains very lethargic and has not been communicating She is noted to have tachycardia around 140s yesterday but this morning seems to be around 100 She did not have any fever and or chills 08/23/2022 The patient was seen and examined in telemetry unit She remains hemodynamically stable with occasional tachycardia Still remains obtunded Opens eyes with commands but does not do anything else on commands Review of Systems Review of Systems: All systems reviewed and are unremarkable except as noted below Neurologic: .Alert and awake only to opening eyes on commands. Not communicating. Occasional movements of the extremities Physical Exam Physical Exam: Lying in bed with closed eyes without any apparent distress Constitutional: well developed, well nourished, + ill appearing and average body habitus ENMT: external ear and nose normal, oropharynx normal Neck: trachea midline, no thyromegaly Respiratory: no respiratory distress Auscultation: lungs clear to auscultation bilaterally and + diminished lung sounds Cardiovascular: Rate/Rhythm: regular rate and regular rhythm; not tachycardic Heart Sounds: normal S1 and normal S2; no murmur Extremities: no edema Gastrointestinal (Abdomen): Inspection/Auscultation: normal bowel sounds; abdomen not distended Percussion/Palpation: abdomen soft; abdomen nontender Neurologic: Alert and awake. Generally weak and not communicating Lymphatic: no cervical or axillary lymphadenopathy Results & Data Results & Data ([facility]) Vital Signs (Past 12 Hours) Vital Signs Temp Pulse Pulse Resp BP BP Pulse Ox 08/23/22 15:39 36.7 C 115 H 22 152/78 H 96 08/23/22 11:50 36.9 C 100 H 19 149/69 H 96 08/23/22 06:35 36.4 C L 80 18 130/70 94 08/23/22 05:38 109 H 135/67 O2 Del Method 08/23/22 15:39 Room Air 08/23/22 11:50 Room Air 08/23/22 06:35 Room Air 08/23/22 05:38 Laboratory Results Short CBC 08/23/22 Range/Units 08:16 WBC 13.29 H (4.8-10.8) K/ul Hgb 8.4 L (12.0-16.0) g/dl Hct 25.8 L (34.1-44.9) % Plt Count 318 (130-400) K/uL BMP 08/23/22 08:16 Sodium 133 L Potassium 3.3 L Chloride 98 Carbon Dioxide 27 BUN 16 Creatinine 0.62 Glucose 73 Calcium 8.3 L Medications Administered Current Inpatient Medications Acetaminophen (Acetaminophen 325 Mg Tab) 650 mg PO Q4H PRN PRN Reason: pain or fever Stop: 09/10/22 13:26 Last Admin: 08/14/22 14:56 Dose: 650 mg Amlodipine Besylate (Amlodipine Besylate 5 Mg Tab) 10 mg PO DAILY [facility] Stop: 09/06/22 08:59 Last Admin: 08/23/22 08:40 Dose: Not Given Betamethasone Dipropion Augmented (Betamethasone Dip Aug (Diprolene) 0.05% Cr 15 Gm Tube) 1 appln EXT BID PRN PRN Reason: AFFECTED AREA Stop: 09/05/22 22:10 Calamine/Phenol (Menthol-Zinc Oxide 360 Appln/120 Gm Tube) 1 appln EXT BID PRN PRN Reason: AFFECTED AREA Stop: 09/05/22 21:52 Clopidogrel Bisulfate (Clopidogrel Bisulfate 75 Mg Tab) 75 mg PO QAM [facility] Stop: 09/06/22 08:59 Last Admin: 08/23/22 08:41 Dose: Not Given Cyanocobalamin (Cyanocobalamin (B-12) 500 Mcg Tablet) 2,000 mcg PO [id number]@0900 [facility] Stop: 09/07/22 08:59 Last Admin: 08/22/22 08:13 Dose: Not Given Dextrose (Dextrose 50% 50 Ml Syringe) 25 - 50 ml IV UD PRN; Protocol PRN Reason: Hypoglycemia Protocol Stop: 09/05/22 21:52 Duloxetine HCl (Duloxetine Hcl 60 Mg Cap) 60 mg PO DAILY [facility] Stop: 09/06/22 08:59 Last Admin: 08/23/22 08:41 Dose: Not Given Ferrous Sulfate (Ferrous Sulfate 325 Mg Tab) 325 mg PO DAILY [facility] Stop: 09/06/22 08:59 Last Admin: 08/07/22 09:22 Dose: Not Given Fluticasone/Vilanterol (Fluticasone/Vilanterol 200/25mcg 14 Puffs/Inhaler) 1 puffs INH DAILY [facility] Stop: 09/06/22 08:59 Last Admin: 08/23/22 08:41 Dose: Not Given Folic Acid (Folic Acid 1 Mg Tab) 1 mg PO QAM [facility] Stop: 09/06/22 08:59 Last Admin: 08/07/22 09:22 Dose: Not Given Glucagon (Glucagon For Inj 1 Mg Vial) 1 mg SQ UD PRN; Protocol PRN Reason: Hypoglycemia Protocol Stop: 09/05/22 21:52 Glucose (Glucose 40% Gel 15 Gm Tube) 15 - 30 gm PO UD PRN; Protocol PRN Reason: Hypoglycemia Protocol Stop: 09/05/22 21:52 Glucose (Glucose 10 Tab/Tube) 4 - 8 tab PO UD PRN; Protocol PRN Reason: Hypoglycemia Treatment Stop: 09/05/22 21:52 Heparin Sodium (Porcine) (Heparin Sod 5,000 Unit/0.5 Ml Vial) 5,000 units SQ Q8 [facility] Stop: 09/05/22 21:59 Last Admin: 08/23/22 12:23 Dose: 5,000 units Hydralazine HCl (Hydralazine Hcl 20 Mg/Ml Vial) 5 mg IV Q6H PRN PRN Reason: systolic bp > 160 Stop: 09/17/22 08:08 Hydroxychloroquine Sulfate (Hydroxychloroquine Sulfate 200 Mg Tab) 200 mg PO HS [facility] Stop: 09/12/22 20:59 Last Admin: 08/22/22 21:22 Dose: Not Given Promethazine HCl 12.5 mg/ (Sodium Chloride) 50.5 mls @ 202 mls/hr IV Q6H PRN PRN Reason: Nausea And Vomiting Stop: 09/11/22 19:23 Lactated Ringer's (Lr) 1,000 mls @ 60 mls/hr IV .[id number] [facility] Stop: 09/19/22 05:14 Last Admin: 08/23/22 13:03 Dose: 60 mls/hr Insulin Aspart (Insulin Aspart Per Unit) 0 units SC Q6 [facility] Stop: 09/19/22 17:59 Last Admin: 08/23/22 11:44 Dose: Not Given Lactobacillus Acidophilus (Advanced Probiotic 1250 Mg Capsule) 2 cap PO BID [facility] Stop: 09/05/22 21:52 Last Admin: 08/23/22 08:41 Dose: Not Given Latanoprost (Latanoprost 0.005% Op Soln 2.5 Ml Btl) 1 drops OPB HS [facility] Stop: 09/05/22 21:52 Last Admin: 08/22/22 21:27 Dose: 1 drops Levalbuterol HCl (Levalbuterol Hcl 1.25 Mg/3 Ml Neb) 1.25 mg INH Q4H PRN; Protocol PRN Reason: SOB/COUGH/WHEEZING Stop: 09/05/22 21:52 Magnesium Oxide (Magnesium Oxide 400 Mg Tab) 400 mg PO BID [facility] Stop: 09/05/22 21:52 Last Admin: 08/23/22 08:41 Dose: Not Given Metoprolol Tartrate (Metoprolol Tartrate 1 Mg/Ml Vial) 5 mg IV Q6 [facility] Stop: 09/20/22 05:59 Last Admin: 08/23/22 12:23 Dose: 5 mg Miconazole Nitrate (Miconazole Nitrate Powder 43 Gm) 1 appln EXT PRN PRN PRN Reason: Affected Skin Folds Stop: 09/10/22 09:54 Miscellaneous (Carbohydrates For Hypoglycemia ) 15 - 30 gm PO UD PRN PRN Reason: Hypoglycemia Protocol Stop: 09/05/22 21:52 Miscellaneous (Solifenacin [Vesicare]: Order Awaiting Action) 1 each N/A QS [facility] Stop: 09/06/22 07:59 Last Admin: 08/07/22 07:45 Dose: Not Given Montelukast Sodium (Montelukast Sodium 10 Mg Tablet) 10 mg PO HS [facility] Stop: 09/05/22 21:52 Last Admin: 08/22/22 21:22 Dose: Not Given Multivitamins/Minerals (Cerovite Adv Formula Tab) 1 tab PO QDL [facility] Stop: 09/06/22 11:29 Last Admin: 08/07/22 12:50 Dose: Not Given Pantoprazole Sodium (Pantoprazole 40 Mg Tab) 40 mg PO DAILY [facility] Stop: 09/06/22 08:59 Last Admin: 08/23/22 08:41 Dose: Not Given Polyethylene Glycol (Polyethylene (Miralax) 17 Gm Pack) 17 gm PO DAILY PRN PRN Reason: Constipation Stop: 09/11/22 19:23 Prednisone (Prednisone 10 Mg Tablet) 10 mg PO DAILY [facility] Stop: 09/16/22 08:59 Last Admin: 08/23/22 08:41 Dose: Not Given Raspberry (Raspberry Syrup 5 Ml Udp) 5 ml PO DAILY [facility] Stop: 09/06/22 08:59 Last Admin: 08/23/22 08:41 Dose: Not Given Rosuvastatin Calcium (Rosuvastatin Calcium 20 Mg Tab) 20 mg PO QAM [facility] Stop: 09/06/22 08:59 Last Admin: 08/17/22 07:54 Dose: 20 mg Senna/Docusate Sodium (Docusate Sodium/Senna 50/8.6mg Tab) 1 tab PO QAM [facility] Stop: 09/11/22 19:29 Last Admin: 08/23/22 08:41 Dose: Not Given Thiamine HCl (Thiamine Hcl 50 Mg Tablet) 50 mg PO DAILY [facility] Stop: 09/06/22 08:59 Last Admin: 08/07/22 09:24 Dose: Not Given Triamcinolone Acetonide (Triamcinolone Acet 0.1% Cr 15 Gm Tube) 1 appln TOP BID PRN PRN Reason: AFFECTED AREA Stop: 09/05/22 21:52 Vancomycin HCl (Vancomycin Hcl 125 Mg/2.5ml Soln) 125 mg PO DAILY [facility] Stop: 09/06/22 08:59 Last Admin: 08/23/22 08:42 Dose: Not Given Vitamin D (Cholecalciferol 1,000 Units 25 Mcg Tab) 2,000 units PO DAILY [facility] Stop: 09/06/22 08:59 Last Admin: 08/07/22 09:22 Dose: Not Given (1) Fall Encounter type: initial encounter Qualified Code(s): W19.XXXA - Unspecified fall, initial encounter
--- NOTE | 2022-08-23 19:56 | XRay Report ---
XR chest 1V portable CLINICAL HISTORY: post coresafe placement COMPARISON STUDY: Chest CT August 13, 2022. Chest radiograph August 21, 2022. FINDINGS: Lung volumes are diminished. This is unchanged. No evidence for pulmonary edema. Cardiomedi astinal silhouette is stable. A right shoulder arthroplasty is incidentally noted. A portion of the f eeding tube is obscured overlying devices. However, the tip projects over the proximal duodenum. IMPRESSION: Tip of feeding tube projects over the proximal duodenum. ACT 112: Negative or not required by law. Electronically signed by: Ga Villalta M.D. 08/23/2022 7:54 PM
[2022-08-23] MEDS: MONTELUKAST SODIUM 10 MG TABLET PO SCH (21:42)
[2022-08-23] MEDS: LATANOPROST 0.005% OP SOLN 2.5 ML BTL OPB SCH (21:46)
[2022-08-23] MEDS: HYDROXYCHLOROQUINE SULFATE 200 MG TAB PO SCH (22:44)
[2022-08-24] MEDS: HEPARIN SOD 5,000 UNIT/0.5 ML VIAL SQ SCH ×3 (05:23→20:59)
[2022-08-24] MEDS: METOPROLOL TARTRATE 1 MG/ML VIAL IV SCH ×3 (05:23→18:29)
[2022-08-24] MEDS: INSULIN ASPART PER UNIT SC SCH ×3 (06:15→18:28)
[2022-08-24] MEDS: LACTATED RINGER'S 1,000 ML IV SCH ×2 (06:16→22:22)
[2022-08-24] MEDS: CLOPIDOGREL BISULFATE 75 MG TAB PO SCH (09:24)
[2022-08-24] MEDS: amLODIPine BESYLATE 5 MG TAB PO SCH (09:24)
[2022-08-24] MEDS: MAGNESIUM OXIDE 400 MG TAB PO SCH ×2 (09:24→20:59)
[2022-08-24] MEDS: DOCUSATE SODIUM/SENNA 50/8.6MG TAB PO SCH (09:24)
[2022-08-24] MEDS: DULoxetine HCL 60 MG CAP PO SCH (09:24)
[2022-08-24] MEDS: ADVANCED PROBIOTIC 1250 MG CAPSULE PO SCH ×2 (09:24→21:00)
[2022-08-24] MEDS: VANCOMYCIN HCL 125 MG/2.5ML SOLN PO SCH (09:25)
[2022-08-24] MEDS: PANTOprazole 40 MG TAB PO SCH (09:25)
[2022-08-24] MEDS: FLUTICASONE/VILANTEROL 200/25MCG 14 PUFFS/INHALER INH SCH (09:25)
[2022-08-24] MEDS: predniSONE 10 MG TABLET PO SCH (09:25)
[2022-08-24] MEDS: RASPBERRY SYRUP 5 ML UDP PO SCH (09:25)
--- NOTE | 2022-08-24 12:52 | Hospitalist Progress Note ---
Date of Service August 24, 2022 Assessment & Plan (1) Acute metabolic encephalopathy: Plan: 2/2 UTI, likely ongoing for last couple of weeks. also offers that she gets intermittently confused on a regular basis at home. Cont antibiotics for infection. Waxing/waning mental status Empirically started with IV Rocephin on admission Initial urine culture was positive for Klebsiella oxytoca and that was sensitive to ceftriaxone Repeat urinary culture grew Enterococcus faecium VRE on 09 August but the colony count was 20,000 She received a course of oral Macrobid for this infection The patient showed much improvement of her in couple apathy and noted to be alert and awake as of 08/18/202208/18 Patient was more awake and alert from Thursday to Thursday, during that time, Macrobid started for UTI secondary VRE, fever also resolved Over the weekend, patient started to be confused, drowsy again, although she remained afebrile Today, patient became very drowsy again Repeat CT head: No acute process Afebrile, with mild leukocytosis, but also has been receiving prednisone 20 mg last week, which has been decreased to 10 mg since yesterday No other infection sources identified at this time, but repeat blood cultures are pending, antibiotics escalated again to daptomycin plus cefepime Possible concussion injury from recent fall? Will consult neurology service for recommendations Worsening Change in mental status Condition deteriorated since evening of 08/18/2022 with more drowsiness She was very lethargic and almost unresponsive on 08/19/2022 Appreciate neurology input and recommendation Has had appropriate imaging studies including MRI which were negative She has started with intravenous cefepime and daptomycin for possible infection Repeat urine and blood culture came back negative White count was elevated likely secondary to use of steroid Antibiotics will be discontinued since there is a rare possibility of extreme drowsiness with the use of cefepime Remains obtunded as of this morning-opening eyes with commands and moving extrem ities at times Remains hemodynamically stable and afebrile Will get repeat UA, blood culture and chest x-ray-no source of infection Remains obtunded without any acute distress Discussed with the and will continue to observe-no change in her condition No signs and or symptoms of infection Will insert course F and start feeding and will get palliative care evaluation on Thursday Clinically much better today and has been trying to follow commands with minimum words NG tube is in and will start feeding Discussed with the in detail Episodes of tachycardia Received 2 doses of 10 mg Cardizem IV on consecutive nights EKG did not show any arrhythmias except sinus rhythm and sinus arrhythmias Will monitor (2) Fever: Plan: Patient remained febrile since admission and the temperature spiking almost every 24 hours Uncertain etiology. check repeat CXR for any developing pneumonia. Changed antibiotic regimen to include azithromycin and finished 5 days course of antibiotic Checking LE dopplers to rule out DVT-these were negative. CT chest without contrast: No lymphadenopathy or airspace consolidation typical for pneumonia. Remains minimally febrile and white count elevated Temperature remains around 37.6 White count has been improving and no more fever and or chills Repeat blood cultures have been negative-no signs and or symptoms of infection secondary to RA flare? Dr. Seymour discussed with Rheum- Dr. Lucas Prednisone increased from 5mg to 20mg daily Plaquenil (discontinued few months ago), resumed Denies arthralgia except for left wrist with known fracture secondary to fall -- Reduce prednisone to 10-->5 mg daily (3) UTI (urinary tract infection): Plan: per #1 Will repeat UA and CS if needed Repeat UA came back negative for any infection (4) Hyponatremia: Plan: -- Sodium 136 monitor (5) Fall: Plan: Progressive weakness likely related to active infection in setting of prior h/o stroke with known residual deficits. needs SNF (6) Wrist injury: Plan: L triquetrum fracture. Orthopedics is consulted. Splint in place and she appears to have pain well managed. continue PRN Tylenol Cont splint and ice to area TID (7) Generalized weakness: Plan: PT/OT: SNF (8) Recurrent Clostridioides difficile infection: Plan: Seen by ID on 07/18/22. Has had 3 recurrences of c difficile diarrhea. Chronically on vancomycin once daily for suppression which has been keeping her BMs to 1-2 formed stools daily. She continues on this now and will not stop it until she is off the current antibiotics. Cont vanc PO once daily. No diarrhea in last 24 hours. Still getting vancomycin No diarrhea and/or abdominal symptoms (9) DM type 2 (diabetes mellitus, type 2): Plan: She has a slightly elevated A1C of 7.0, likely related to ongoing prednisone use. Not taking any blood glucose lowering medications at home. Pharmacy Glycemic Ctrl consulted-signed off (10) History of stroke: Plan: chronic, cont medical management. (11) CKD (chronic kidney disease), stage III: Plan: Chronic, stable. Cont monitoring and renally dose meds as needed. (12) HTN (hypertension): Plan: chronic, no changes in BP meds. (13) Depression: Plan: chronic, stable. Cont duloxetine per home regimen. (14) DVT prophylaxis: Plan: heparin Full Code Dispo- d/c to [facility] once medically stable Discussed with the in detail Admission and Anticipated Discharge Date Admission Date: August 06, 2022 Subjective 08/20/2022 The patient was seen and examined in telemetry unit She has been very drowsy this morning Only opening her eyes with commands and palpation but has not been talking and/or following any other commands Remains hemodynamically stable without any fever and or chills 08/21/2022 The patient was seen and examined in telemetry unit She remains very drowsy and obtunded Opening her eyes and moving upper extremities without following any commands Does not seems to be in any distress 08/22/2022 The patient was seen and examined in telemetry unit She remains very lethargic and has not been communicating She is noted to have tachycardia around 140s yesterday but this morning seems to be around 100 She did not have any fever and or chills 08/23/2022 The patient was seen and examined in telemetry unit She remains hemodynamically stable with occasional tachycardia Still remains obtunded Opens eyes with commands but does not do anything else on commands 08/24/2022 The patient was seen and examined in telemetry unit in presence of the Today seems to be one of the best days for her She has been following commands minimally and denies any significant symptom NG tube has been in and will start for Review of Systems Review of Systems: Unobtainable due to cognitive status Physical Exam Physical Exam: Lying in bed without any acute distress Constitutional: well developed, well nourished, + ill appearing and average body habitus ENMT: external ear and nose normal, oropharynx normal Neck: trachea midline, no thyromegaly Respiratory: no respiratory distress Auscultation: lungs clear to auscu ltation bilaterally and + diminished lung sounds Cardiovascular: Rate/Rhythm: regular rate and regular rhythm; not tachycardic Heart Sounds: normal S1 and normal S2; no murmur Extremities: no edema Gastrointestinal (Abdomen): Inspection/Auscultation: normal bowel sounds; abdomen not distended Percussion/Palpation: abdomen soft; abdomen nontender Musculoskeletal: Has rheumatoid changes involving the extremities but no acute arthritis in any joint Neurologic: Alert and awake. Difficult to assess orientation but minimally communicative and moving all the limbs Lymphatic: no cervical or axillary lymphadenopathy Results & Data Results & Data ([facility]) Vital Signs (Past 12 Hours) Vital Signs Temp Pulse Pulse Resp BP BP BP 08/24/22 11:41 36.5 C 104 H 19 147/79 H 08/24/22 07:42 36.9 C 88 20 159/74 H 08/24/22 05:23 109 H 147/63 H 08/24/22 03:08 37.2 C 109 H 20 162/71 H Pulse Ox O2 Del Method 08/24/22 11:41 96 Room Air 08/24/22 07:42 96 Room Air 08/24/22 05:23 08/24/22 03:08 95 Room Air Medications Administered Current Inpatient Medications Acetaminophen (Acetaminophen 325 Mg Tab) 650 mg PO Q4H PRN PRN Reason: pain or fever Stop: 09/10/22 13:26 Last Admin: 08/14/22 14:56 Dose: 650 mg Amlodipine Besylate (Amlodipine Besylate 5 Mg Tab) 10 mg PO DAILY [facility] Stop: 09/06/22 08:59 Last Admin: 08/24/22 09:24 Dose: 10 mg Betamethasone Dipropion Augmented (Betamethasone Dip Aug (Diprolene) 0.05% Cr 15 Gm Tube) 1 appln EXT BID PRN PRN Reason: AFFECTED AREA Stop: 09/05/22 22:10 Calamine/Phenol (Menthol-Zinc Oxide 360 Appln/120 Gm Tube) 1 appln EXT BID PRN PRN Reason: AFFECTED AREA Stop: 09/05/22 21:52 Clopidogrel Bisulfate (Clopidogrel Bisulfate 75 Mg Tab) 75 mg PO QAM [facility] Stop: 09/06/22 08:59 Last Admin: 08/24/22 09:24 Dose: 75 mg Cyanocobalamin (Cyanocobalamin (B-12) 500 Mcg Tablet) 2,000 mcg PO MoWeFr@0900 [facility] Stop: 09/07/22 08:59 Last Admin: 08/22/22 08:13 Dose: Not Given Dextrose (Dextrose 50% 50 Ml Syringe) 25 - 50 ml IV UD PRN; Protocol PRN Reason: Hypoglycemia Protocol Stop: 09/05/22 21:52 Duloxetine HCl (Duloxetine Hcl 60 Mg Cap) 60 mg PO DAILY [facility] Stop: 09/06/22 08:59 Last Admin: 08/24/22 09:24 Dose: 60 mg Ferrous Sulfate (Ferrous Sulfate 325 Mg Tab) 325 mg PO DAILY [facility] Stop: 09/06/22 08:59 Last Admin: 08/07/22 09:22 Dose: Not Given Fluticasone/Vilanterol (Fluticasone/Vilanterol 200/25mcg 14 Puffs/Inhaler) 1 puffs INH DAILY [facility] Stop: 09/06/22 08:59 Last Admin: 08/24/22 09:25 Dose: Not Given Folic Acid (Folic Acid 1 Mg Tab) 1 mg PO QAM [facility] Stop: 09/06/22 08:59 Last Admin: 08/07/22 09:22 Dose: Not Given Glucagon (Glucagon For Inj 1 Mg Vial) 1 mg SQ UD PRN; Protocol PRN Reason: Hypoglycemia Protocol Stop: 09/05/22 21:52 Glucose (Glucose 40% Gel 15 Gm Tube) 15 - 30 gm PO UD PRN; Protocol PRN Reason: Hypoglycemia Protocol Stop: 09/05/22 21:52 Glucose (Glucose 10 Tab/Tube) 4 - 8 tab PO UD PRN; Protocol PRN Reason: Hypoglycemia Treatment Stop: 09/05/22 21:52 Heparin Sodium (Porcine) (Heparin Sod 5,000 Unit/0.5 Ml Vial) 5,000 units SQ Q8 [facility] Stop: 09/05/22 21:59 Last Admin: 08/24/22 05:23 Dose: 5,000 units Hydralazine HCl (Hydralazine Hcl 20 Mg/Ml Vial) 5 mg IV Q6H PRN PRN Reason: systolic bp > 160 Stop: 09/17/22 08:08 Hydroxychloroquine Sulfate (Hydroxychloroquine Sulfate 200 Mg Tab) 200 mg PO HS [facility] Stop: 09/12/22 20:59 Last Admin: 08/23/22 22:44 Dose: 200 mg Promethazine HCl 12.5 mg/ (Sodium Chloride) 50.5 mls @ 202 mls/hr IV Q6H PRN PRN Reason: Nausea And Vomiting Stop: 09/11/22 19:23 Lactated Ringer's (Lr) 1,000 mls @ 60 mls/hr IV .[id number] [facility] Stop: 09/19/22 05:14 Last Admin: 08/24/22 06:16 Dose: 60 mls/hr Thiamine HCl 100 mg/ Syringe 10 mls @ 2 mls/min IV BID [facility] Stop: 09/25/22 00:00 Insulin Aspart (Insulin Aspart Per Unit) 0 units SC Q6 [facility] Stop: 09/19/22 17:59 Last Admin: 08/24/22 12:13 Dose: 1 units Lactobacillus Acidophilus (Advanced Probiotic 1250 Mg Capsule) 2 cap PO BID [facility] Stop: 09/05/22 21:52 Last Admin: 08/24/22 09:24 Dose: 2 cap Latanoprost (Latanoprost 0.005% Op Soln 2.5 Ml Btl) 1 drops OPB HS [facility] Stop: 09/05/22 21:52 Last Admin: 08/23/22 21:46 Dose: 1 drops Levalbuterol HCl (Levalbuterol Hcl 1.25 Mg/3 Ml Neb) 1.25 mg INH Q4H PRN; Protocol PRN Reason: SOB/COUGH/WHEEZING Stop: 09/05/22 21:52 Magnesium Oxide (Magnesium Oxide 400 Mg Tab) 400 mg PO BID [facility] Stop: 09/05/22 21:52 Last Admin: 08/24/22 09:24 Dose: 400 mg Metoprolol Tartrate (Metoprolol Tartrate 1 Mg/Ml Vial) 5 mg IV Q6 [facility] Stop: 09/20/22 05:59 Last Admin: 08/24/22 12:13 Dose: 5 mg Miconazole Nitrate (Miconazole Nitrate Powder 43 Gm) 1 appln EXT PRN PRN PRN Reason: Affected Skin Folds Stop: 09/10/22 09:54 Miscellaneous (Carbohydrates For Hypoglycemia ) 15 - 30 gm PO UD PRN PRN Reason: Hypoglycemia Protocol Stop: 09/05/22 21:52 Miscellaneous (Solifenacin [Vesicare]: Order Awaiting Action) 1 each N/A QS [facility] Stop: 09/06/22 07:59 Last Admin: 08/07/22 07:45 Dose: Not Given Montelukast Sodium (Montelukast Sodium 10 Mg Tablet) 10 mg PO HS [facility] Stop: 09/05/22 21:52 Last Admin: 08/23/22 21:42 Dose: 10 mg Multivitamins/Minerals (Cerovite Adv Formula Tab) 1 tab PO QDL [facility] Stop: 09/06/22 11:29 Last Admin: 08/07/22 12:50 Dose: Not Given Pantoprazole Sodium (Pantoprazole 40 Mg Tab) 40 mg PO DAILY [facility] Stop: 09/06/22 08:59 Last Admin: 08/24/22 09:25 Dose: 40 mg Polyethylene Glycol (Polyethylene (Miralax) 17 Gm Pack) 17 gm PO DAILY PRN PRN Reason: Constipation Stop: 09/11/22 19:23 Prednisone (Prednisone 10 Mg Tablet) 10 mg PO DAILY [facility] Stop: 09/16/22 08:59 Last Admin: 08/24/22 09:25 Dose: 10 mg Raspberry (Raspberry Syrup 5 Ml Udp) 5 ml PO DAILY [facility] Stop: 09/06/22 08:59 Last Admin: 08/24/22 09:25 Dose: 5 ml Rosuvastatin Calcium (Rosuvastatin Calcium 20 Mg Tab) 20 mg PO QAM [facility] Stop: 09/06/22 08:59 Last Admin: 08/17/22 07:54 Dose: 20 mg Senna/Docusate Sodium (Docusate Sodium/Senna 50/8.6mg Tab) 1 tab PO QAM [facility] Stop: 09/11/22 19:29 Last Admin: 08/24/22 09:24 Dose: 1 tab Thiamine HCl (Thiamine Hcl 50 Mg Tablet) 50 mg PO DAILY [facility] Stop: 09/06/22 08:59 Last Admin: 08/07/22 09:24 Dose: Not Given Triamcinolone Acetonide (Triamcinolone Acet 0.1% Cr 15 Gm Tube) 1 appln TOP BID PRN PRN Reason: AFFECTED AREA Stop: 09/05/22 21:52 Vancomycin HCl (Vancomycin Hcl 125 Mg/2.5ml Soln) 125 mg PO DAILY [facility] Stop: 09/06/22 08:59 Last Admin: 08/24/22 09:25 Dose: 125 mg Vitamin D (Cholecalciferol 1,000 Units 25 Mcg Tab) 2,000 units PO DAILY [facility] Stop: 09/06/22 08:59 Last Admin: 08/07/22 09:22 Dose: Not Given (1) Fall Encounter type: initial encounter Qualified Code(s): W19.XXXA - Unspecified fall, initial encounter
[2022-08-24 13:27] LABS: BUN Creatinine Ratio 27.5 (10-20); Calcium 8.4 mg/dl (8.5-10.1); Est GFR (African American) 109.8 ml/min; Est GFR (Non-African American) 94.7 ml/min; Magnesium 1.7 mg/dl (1.7-2.4); Phosphorus 3.4 mg/dl (2.5-4.9); Potassium 3.4 mmol/L (3.5-5.1)
[2022-08-24] MEDS: THIAMINE HCL 100 MG in SYRINGE 9 ML IV SCH ×2 (14:03→20:59)
[2022-08-24] MEDS ORDERED: FIBERSOURCE HN 1.2 CAL 1000 ML BAG NG SCH (15:00)
[2022-08-24] MEDS: TUBE FEEDING WATER FLUSH NG SCH ×2 (18:50→20:59)
[2022-08-24] MEDS: HYDROXYCHLOROQUINE SULFATE 200 MG TAB PO SCH (20:59)
[2022-08-24] MEDS: MONTELUKAST SODIUM 10 MG TABLET PO SCH (20:59)
[2022-08-24] MEDS: LATANOPROST 0.005% OP SOLN 2.5 ML BTL OPB SCH (21:00)
[2022-08-25] MEDS: INSULIN ASPART PER UNIT SC SCH ×4 (00:17→18:21)
[2022-08-25] MEDS: METOPROLOL TARTRATE 1 MG/ML VIAL IV SCH ×4 (00:23→18:38)
[2022-08-25] MEDS: HEPARIN SOD 5,000 UNIT/0.5 ML VIAL SQ SCH ×3 (05:51→21:51)
[2022-08-25 06:45] LABS: Basophils # (auto) 0.01 K/uL (0-0.2); Basophils % (auto) 0.1 %; Eosinophils # (auto) 0.06 K/uL (0-0.50); Eosinophils % (auto) 0.8 %; Hematocrit (blood only) 23.7 % (34.1-44.9); Hemoglobin 7.9 g/dl (12.0-16.0); Immature Granulocytes # (auto) 0.07 K/uL (0.00-0.02); Lymphocytes # (auto) 1.07 K/uL (1.2-3.4); Lymphocytes % (auto) 14.8 %; Mean Corpuscular Hemoglobin 27.4 pg (25.0-34.0); Mean Corpuscular Hgb Conc 33.3 g/dL (32.0-36.0); Mean Corpuscular Volume 82.3 fL (80.0-100.0); Mean Platelet Volume 8.5 fL (9.4-12.3); Monocytes # (auto) 0.41 K/uL (0.24-0.82); Monocytes % (auto) 5.7 %; Neutrophils # (auto) 5.62 K/uL (1.4-6.5); Neutrophils % (auto) 77.6 %; Platelet Count 273 K/uL (130-400); RDW Coefficient of Variation 15.6 % (11.5-14.5); RDW Standard Deviation 46.8 fL (36.4-46.3); Red Blood Count 2.88 M/uL (3.93-5.22); White Blood Count 7.24 K/ul (4.8-10.8)
[2022-08-25 07:02] LABS: BUN Creatinine Ratio 26.7 (10-20); Calcium 8.4 mg/dl (8.5-10.1); Creatinine Clr Calc Pharmacy 65.1 ml/min; Est GFR (African American) 104.1 ml/min; Est GFR (Non-African American) 89.8 ml/min; Magnesium 1.7 mg/dl (1.7-2.4); Phosphorus 2.9 mg/dl (2.5-4.9)
[2022-08-25 07:27] LABS: RBC Morphology Unremarkable
[2022-08-25] MEDS ORDERED: POTASSIUM CHLORIDE 20 MEQ/15 ML UDC NG STA (07:54)
[2022-08-25] MEDS: CYANOCOBALAMIN (B-12) 500 MCG TABLET PO SCH (09:48)
[2022-08-25] MEDS: MAGNESIUM OXIDE 400 MG TAB PO SCH ×2 (09:48→21:51)
[2022-08-25] MEDS: DULoxetine HCL 60 MG CAP PO SCH (09:48)
[2022-08-25] MEDS: predniSONE 10 MG TABLET PO SCH (09:48)
[2022-08-25] MEDS: RASPBERRY SYRUP 5 ML UDP PO SCH (09:48)
[2022-08-25] MEDS: CLOPIDOGREL BISULFATE 75 MG TAB PO SCH (09:48)
[2022-08-25] MEDS: PANTOprazole 40 MG TAB PO SCH (09:48)
[2022-08-25] MEDS: ADVANCED PROBIOTIC 1250 MG CAPSULE PO SCH ×2 (09:48→21:51)
[2022-08-25] MEDS: amLODIPine BESYLATE 5 MG TAB PO SCH (09:48)
[2022-08-25] MEDS: THIAMINE HCL 100 MG in SYRINGE 9 ML IV SCH ×2 (09:49→23:13)
[2022-08-25] MEDS: TUBE FEEDING WATER FLUSH NG SCH ×4 (09:49→21:51)
[2022-08-25] MEDS: FLUTICASONE/VILANTEROL 200/25MCG 14 PUFFS/INHALER INH SCH (10:14)
[2022-08-25] MEDS: DOCUSATE SODIUM/SENNA 50/8.6MG TAB PO SCH (10:14)
[2022-08-25] MEDS: VANCOMYCIN HCL 125 MG/2.5ML SOLN PO SCH (11:02)
--- NOTE | 2022-08-25 12:10 | Hospitalist Progress Note ---
Date of Service August 25, 2022 Assessment & Plan (1) Acute metabolic encephalopathy: Plan: 2/2 UTI, likely ongoing for last couple of weeks. also offers that she gets intermittently confused on a regular basis at home. Cont antibiotics for infection. Waxing/waning mental status Empirically started with IV Rocephin on admission Initial urine culture was positive for Klebsiella oxytoca and that was sensitive to ceftriaxone Repeat urinary culture grew Enterococcus faecium VRE on 09 August but the colony count was 20,000 She received a course of oral Macrobid for this infection The patient showed much improvement of her in couple apathy and noted to be alert and awake as of 08/18/202208/18 Patient was more awake and alert from Thursday to Thursday, during that time, Macrobid started for UTI secondary VRE, fever also resolved Over the weekend, patient started to be confused, drowsy again, although she remained afebrile Today, patient became very drowsy again Repeat CT head: No acute process Afebrile, with mild leukocytosis, but also has been receiving prednisone 20 mg last week, which has been decreased to 10 mg since yesterday No other infection sources identified at this time, but repeat blood cultures are pending, antibiotics escalated again to daptomycin plus cefepime Possible concussion injury from recent fall? Will consult neurology service for recommendations Worsening Change in mental status Condition deteriorated since evening of 08/18/2022 with more drowsiness She was very lethargic and almost unresponsive on 08/19/2022 Appreciate neurology input and recommendation Has had appropriate imaging studies including MRI which were negative She has started with intravenous cefepime and daptomycin for possible infection Repeat urine and blood culture came back negative White count was elevated likely secondary to use of steroid Antibiotics will be discontinued since there is a rare possibility of extreme drowsiness with the use of cefepime Remains obtunded as of this morning-opening eyes with commands and moving extrem ities at times Remains hemodynamically stable and afebrile Will get repeat UA, blood culture and chest x-ray-no source of infection Remains obtunded without any acute distress Discussed with the and will continue to observe-no change in her condition No signs and or symptoms of infection Will insert course F and start feeding and will get palliative care evaluation on Thursday Clinically much better today and has been trying to follow commands with minimum words She is back to her baseline and is completely alert, awake and oriented and communicating normally Will start clears orally and if tolerated will discontinue NG tube feeding We will get PT and OT evaluation for discharge planning Episodes of tachycardia Received 2 doses of 10 mg Cardizem IV on consecutive nights EKG did not show any arrhythmias except sinus rhythm and sinus arrhythmias Will monitor (2) Fever: Plan: Patient remained febrile since admission and the temperature spiking almost every 24 hours Uncertain etiology. check repeat CXR for any developing pneumonia. Changed antibiotic regimen to include azithromycin and finished 5 days course of antibiotic Checking LE dopplers to rule out DVT-these were negative. CT chest without contrast: No lymphadenopathy or airspace consolidation typical for pneumonia. Remains minimally febrile and white count elevated Temperature remains around 37.6 White count has been improving and no more fever and or chills Repeat blood cultures have been negative-no signs and or symptoms of infection No more fever and or chills secondary to RA flare? Dr. Seymour discussed with Rheum- Dr. Lucas Prednisone increased from 5mg to 20mg daily Plaquenil (discontinued few months ago), resumed Denies arthralgia except for left wrist with known fracture secondary to fall -- Reduce prednisone to 10-->5 mg daily (3) UTI (urinary tract infection): Plan: per #1 Will repeat UA and CS if needed Repeat UA came back negative for any infection (4) Hyponatremia: Plan: -- Sodium 136 monitor (5) Fall: Plan: Progressive weakness likely related to active infection in setting of prior h/o stroke with known residual deficits. needs SNF (6) Wrist injury: Plan: L triquetrum fracture. Orthopedics is consulted. Splint in place and she appears to have pain well managed. continue PRN Tylenol Cont splint and ice to area TID (7) Generalized weakness: Plan: PT/OT: SNF (8) Recurrent Clostridioides difficile infection: Plan: Seen by ID on 07/18/22. Has had 3 recurrences of c difficile diarrhea. Chronically on vancomycin once daily for suppression which has been keeping her BMs to 1-2 formed stools daily. She continues on this now and will not stop it until she is off the current antibiotics. Cont vanc PO once daily. No diarrhea in last 24 hours. Still getting vancomycin No diarrhea and/or abdominal symptoms (9) DM type 2 (diabetes mellitus, type 2): Plan: She has a slightly elevated A1C of 7.0, likely related to ongoing prednisone use. Not taking any blood glucose lowering medications at home. Pharmacy Glycemic Ctrl consulted-signed off (10) History of stroke: Plan: chronic, cont medical management. (11) CKD (chronic kidney disease), stage III: Plan: Chronic, stable. Cont monitoring and renally dose meds as needed. (12) HTN (hypertension): Plan: chronic, no changes in BP meds. (13) Depression: Plan: chronic, stable. Cont duloxetine per home regimen. (14) DVT prophylaxis: Plan: heparin Full Code Dispo- d/c to [facility] once medically stable Discussed with the in detail Admission and Anticipated Discharge Date Admission Date: August 06, 2022 Subjective 08/20/2022 The patient was seen and examined in telemetry unit She has been very drowsy this morning Only opening her eyes with commands and palpation but has not been talking and/or following any other commands Remains hemodynamically stable without any fever and or chills 08/21/2022 The patient was seen and examined in telemetry unit She remains very drowsy and obtunded Opening her eyes and moving upper extremities without following any commands Does not seems to be in any distress 08/22/2022 The patient was seen and examined in telemetry unit She remains very lethargic and has not been communicating She is noted to have tachycardia around 140s yesterday but this morning seems to be around 100 She did not have any fever and or chills 08/23/2022 The patient was seen and examined in telemetry unit She remains hemodynamically stable with occasional tachycardia Still remains obtunded Opens eyes with commands but does not do anything else on commands 08/24/2022 The patient was seen and examined in telemetry unit in presence of the Today seems to be one of the best days for her She has been following commands minimally and denies any significant symptom NG tube has been in and will start for 08/25/2022 The patient was seen and examined in telemetry unit She has been back to her baseline and talking normally Denies any significant symptoms today Will start oral liquids and if tolerated can DC the NG tube by tomorrow We will get PT and OT evaluation Review of Systems 2 Review of Systems: All systems reviewed and are unremarkable except as noted below Physical Exam Physical Exam: Lying in bed without any acute distress Constitutional: well developed, well nourished and average body habitus; not ill appearing ENMT: external ear and nose normal, oropharynx normal Neck: trachea midline, no thyromegaly Respiratory: no respiratory distress Auscultation: lungs clear to auscultation bilaterally and + diminished lung sounds Cardiovascular: Rate/Rhythm: regular rate and regular rhythm; not tachycardic Heart Sounds: normal S1 and normal S2; no murmur Extremities: no edema Gastrointestinal (Abdomen): Inspection/Auscultation: normal bowel sounds; abdomen not distended Percussion/Palpation: abdomen soft; abdomen nontender Musculoskeletal: Has rheumatoid arthritis but no acute arthritis involving any joint Neurologic: Alert, 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 Moving all limbs equally. Conversation is normal Lymphatic: no cervical or axillary lymphadenopathy Results & Data Results & Data ([facility]) Vital Signs (Past 12 Hours) Vital Signs Temp Pulse Pulse Resp BP BP Pulse Ox 08/25/22 11:37 37.0 C 103 H 17 148/77 H 94 08/25/22 11:31 103 H 148/77 H 08/25/22 07:36 08/25/22 07:32 36.8 C 88 16 139/58 L 96 08/25/22 07:00 71 08/25/22 05:53 90 129/73 08/25/22 03:11 36.3 C L 84 18 149/68 H 94 08/25/22 00:23 92 H 131/77 08/25/22 00:18 36.3 C L 92 H 20 131/77 92 O2 Del Method 08/25/22 11:37 Room Air 08/25/22 11:31 08/25/22 07:36 Room Air 08/25/22 07:32 Room Air 08/25/22 07:00 08/25/22 05:53 08/25/22 03:11 Room Air 08/25/22 00:23 08/25/22 00:18 Room Air Laboratory Results Short CBC 08/25/22 Range/Units 05:52 WBC 7.24 (4.8-10.8) K/ul Hgb 7.9 L (12.0-16.0) g/dl Hct 23.7 L (34.1-44.9) % Plt Count 273 (130-400) K/uL BMP 08/24/22 08/25/22 13:02 05:52 Sodium 135 L 135 L Potassium 3.4 L 3.0 L Chloride 98 98 Carbon Dioxide 25 29 BUN 14 16 Creatinine 0.51 L 0.60 Glucose 121 H 128 H Calcium 8.4 L 8.4 L Medications Administered Current Inpatient Medications Acetaminophen (Acetaminophen 325 Mg Tab) 650 mg PO Q4H PRN PRN Reason: pain or fever Stop: 09/10/22 13:26 Last Admin: 08/14/22 14:56 Dose: 650 mg Amlodipine Besylate (Amlodipine Besylate 5 Mg Tab) 10 mg PO DAILY [facility] Stop: 09/06/22 08:59 Last Admin: 08/25/22 09:48 Dose: 10 mg Betamethasone Dipropion Augmented (Betamethasone Dip Aug (Diprolene) 0.05% Cr 15 Gm Tube) 1 appln EXT BID PRN PRN Reason: AFFECTED AREA Stop: 09/05/22 22:10 Calamine/Phenol (Menthol-Zinc Oxide 360 Appln/120 Gm Tube) 1 appln EXT BID PRN PRN Reason: AFFECTED AREA Stop: 09/05/22 21:52 Clopidogrel Bisulfate (Clopidogrel Bisulfate 75 Mg Tab) 75 mg PO QAM [facility] Stop: 09/06/22 08:59 Last Admin: 08/25/22 09:48 Dose: 75 mg Cyanocobalamin (Cyanocobalamin (B-12) 500 Mcg Tablet) 2,000 mcg PO [id number] [facility] Stop: 09/07/22 08:59 Last Admin: 08/25/22 09:48 Dose: 2,000 mcg Dextrose (Dextrose 50% 50 Ml Syringe) 25 - 50 ml IV UD PRN; Protocol PRN Reason: Hypoglycemia Protocol Stop: 09/05/22 21:52 Duloxetine HCl (Duloxetine Hcl 60 Mg Cap) 60 mg PO DAILY [facility] Stop: 09/06/22 08:59 Last Admin: 08/25/22 09:48 Dose: 60 mg Enteral Nutritional Formula (Fibersource Hn 1.2 Seng 1000 Ml Bag) 1,000 ml NG UD [facility]LA; Protocol Stop: 09/23/22 14:59 Last Admin: 08/24/22 18:51 Dose: 1,000 ml Ferrous Sulfate (Ferrous Sulfate 325 Mg Tab) 325 mg PO DAILY [facility] Stop: 09/06/22 08:59 Last Admin: 08/07/22 09:22 Dose: Not Given Fluticasone/Vilanterol (Fluticasone/Vilanterol 200/25mcg 14 Puffs/Inhaler) 1 puffs INH DAILY [facility] Stop: 09/06/22 08:59 Last Admin: 08/25/22 10:14 Dose: 1 puffs Folic Acid (Folic Acid 1 Mg Tab) 1 mg PO QAM [facility] Stop: 09/06/22 08:59 Last Admin: 08/07/22 09:22 Dose: Not Given Glucagon (Glucagon For Inj 1 Mg Vial) 1 mg SQ UD PRN; Protocol PRN Reason: Hypoglycemia Protocol Stop: 09/05/22 21:52 Glucose (Glucose 40% Gel 15 Gm Tube) 15 - 30 gm PO UD PRN; Protocol PRN Reason: Hypoglycemia Protocol Stop: 09/05/22 21:52 Glucose (Glucose 10 Tab/Tube) 4 - 8 tab PO UD PRN; Protocol PRN Reason: Hypoglycemia Treatment Stop: 09/05/22 21:52 Heparin Sodium (Porcine) (Heparin Sod 5,000 Unit/0.5 Ml Vial) 5,000 units SQ Q8 [facility] Stop: 09/05/22 21:59 Last Admin: 08/25/22 05:51 Dose: 5,000 units Hydralazine HCl (Hydralazine Hcl 20 Mg/Ml Vial) 5 mg IV Q6H PRN PRN Reason: systolic bp > 160 Stop: 09/17/22 08:08 Hydroxychloroquine Sulfate (Hydroxychloroquine Sulfate 200 Mg Tab) 200 mg PO HS [facility] Stop: 09/12/22 20:59 Last Admin: 08/24/22 20:59 Dose: 200 mg Promethazine HCl 12.5 mg/ (Sodium Chloride) 50.5 mls @ 202 mls/hr IV Q6H PRN PRN Reason: Nausea And Vomiting Stop: 09/11/22 19:23 Lactated Ringer's (Lr) 1,000 mls @ 60 mls/hr IV .[id number] [facility] Stop: 09/19/22 05:14 Last Admin: 08/24/22 22:22 Dose: 60 mls/hr Thiamine HCl 100 mg/ Syringe 10 mls @ 2 mls/min IV BID [facility] Stop: 09/25/22 00:00 Last Admin: 08/25/22 09:49 Dose: 2 mls/min Insulin Aspart (Insulin Aspart Per Unit) 0 units SC Q6 [facility] Stop: 09/19/22 17:59 Last Admin: 08/25/22 05:46 Dose: 1 units Lactobacillus Acidophilus (Advanced Probiotic 1250 Mg Capsule) 2 cap PO BID [facility] Stop: 09/05/22 21:52 Last Admin: 08/25/22 09:48 Dose: 2 cap Latanoprost (Latanoprost 0.005% Op Soln 2.5 Ml Btl) 1 drops OPB HS [facility] Stop: 09/05/22 21:52 Last Admin: 08/24/22 21:00 Dose: 1 drops Levalbuterol HCl (Levalbuterol Hcl 1.25 Mg/3 Ml Neb) 1.25 mg INH Q4H PRN; Protocol PRN Reason: SOB/COUGH/WHEEZING Stop: 09/05/22 21:52 Magnesium Oxide (Magnesium Oxide 400 Mg Tab) 400 mg PO BID [facility] Stop: 09/05/22 21:52 Last Admin: 08/25/22 09:48 Dose: 400 mg Metoprolol Tartrate (Metoprolol Tartrate 1 Mg/Ml Vial) 5 mg IV Q6 [facility] Stop: 09/20/22 05:59 Last Admin: 08/25/22 11:31 Dose: 5 mg Miconazole Nitrate (Miconazole Nitrate Powder 43 Gm) 1 appln EXT PRN PRN PRN Reason: Affected Skin Folds Stop: 09/10/22 09:54 Miscellaneous (Carbohydrates For Hypoglycemia ) 15 - 30 gm PO UD PRN PRN Reason: Hypoglycemia Protocol Stop: 09/05/22 21:52 Miscellaneous (Solifenacin [Vesicare]: Order Awaiting Action) 1 each N/A QS [facility] Stop: 09/06/22 07:59 Last Admin: 08/07/22 07:45 Dose: Not Given Montelukast Sodium (Montelukast Sodium 10 Mg Tablet) 10 mg PO HS [facility] Stop: 09/05/22 21:52 Last Admin: 08/24/22 20:59 Dose: 10 mg Multivitamins/Minerals (Cerovite Adv Formula Tab) 1 tab PO QDL [facility] Stop: 09/06/22 11:29 Last Admin: 08/07/22 12:50 Dose: Not Given Pantoprazole Sodium (Pantoprazole 40 Mg Tab) 40 mg PO DAILY [facility] Stop: 09/06/22 08:59 Last Admin: 08/25/22 09:48 Dose: 40 mg Polyethylene Glycol (Polyethylene (Miralax) 17 Gm Pack) 17 gm PO DAILY PRN PRN Reason: Constipation Stop: 09/11/22 19:23 Prednisone (Prednisone 10 Mg Tablet) 10 mg PO DAILY [facility] Stop: 09/16/22 08:59 Last Admin: 08/25/22 09:48 Dose: 10 mg Raspberry (Raspberry Syrup 5 Ml Udp) 5 ml PO DAILY [facility] Stop: 09/06/22 08:59 Last Admin: 08/25/22 09:48 Dose: 5 ml Rosuvastatin Calcium (Rosuvastatin Calcium 20 Mg Tab) 20 mg PO QAM [facility] Stop: 09/06/22 08:59 Last Admin: 08/17/22 07:54 Dose: 20 mg Senna/Docusate Sodium (Docusate Sodium/Senna 50/8.6mg Tab) 1 tab PO QAM [facility] Stop: 09/11/22 19:29 Last Admin: 08/25/22 10:14 Dose: 1 tab Sterile Water (Tube Feeding Water Flush) 120 ml NG QID [facility] Stop: 09/23/22 14:59 Last Admin: 08/25/22 09:49 Dose: 120 ml Thiamine HCl (Thiamine Hcl 50 Mg Tablet) 50 mg PO DAILY [facility] Stop: 09/06/22 08:59 Last Admin: 08/07/22 09:24 Dose: Not Given Triamcinolone Acetonide (Triamcinolone Acet 0.1% Cr 15 Gm Tube) 1 appln TOP BID PRN PRN Reason: AFFECTED AREA Stop: 09/05/22 21:52 Vancomycin HCl (Vancomycin Hcl 125 Mg/2.5ml Soln) 125 mg PO DAILY [facility] Stop: 09/06/22 08:59 Last Admin: 08/25/22 11:02 Dose: 125 mg Vitamin D (Cholecalciferol 1,000 Units 25 Mcg Tab) 2,000 units PO DAILY [facility] Stop: 09/06/22 08:59 Last Admin: 08/07/22 09:22 Dose: Not Given (1) Fall Encounter type: initial encounter Qualified Code(s): W19.XXXA - Unspecified fall, initial encounter
[2022-08-25] MEDS: LACTATED RINGER'S 1,000 ML IV SCH (15:07)
--- NOTE | 2022-08-25 21:10 | XRay Report ---
KUB CLINICAL HISTORY: Enteric tube placement. FINDINGS: 2 AP supine abdominal radiographs are correlated with abdominal CT dated 03/31/2022. Cholecy stectomy clips are noted in the right upper quadrant. An enteric tube projects below the diaphragm ov er the mid stomach. No bowel obstruction is seen. There are no abnormal abdominal calcifications. Vas cular calcifications are seen in the pelvis. The skeletal structures are osteopenic and appear intact . There is moderate lumbosacral spondylosis. IMPRESSION: Enteric tube placement as above. Electronically signed by: Brigido Gutierrez M.D. 08/25/2022 9:09 PM
[2022-08-25] MEDS: MONTELUKAST SODIUM 10 MG TABLET PO SCH (21:50)
[2022-08-25] MEDS: HYDROXYCHLOROQUINE SULFATE 200 MG TAB PO SCH (21:50)
[2022-08-25] MEDS: LATANOPROST 0.005% OP SOLN 2.5 ML BTL OPB SCH (21:51)
[2022-08-26] MEDS: INSULIN ASPART PER UNIT SC SCH ×4 (00:30→18:04)
[2022-08-26] MEDS: METOPROLOL TARTRATE 1 MG/ML VIAL IV SCH ×4 (00:59→18:08)
[2022-08-26] MEDS: HEPARIN SOD 5,000 UNIT/0.5 ML VIAL SQ SCH ×3 (06:06→21:56)
[2022-08-26] MEDS: LACTATED RINGER'S 1,000 ML IV SCH (08:00)
[2022-08-26] MEDS: MAGNESIUM OXIDE 400 MG TAB PO SCH ×2 (09:22→21:55)
[2022-08-26] MEDS: CLOPIDOGREL BISULFATE 75 MG TAB PO SCH (09:23)
[2022-08-26] MEDS: ADVANCED PROBIOTIC 1250 MG CAPSULE PO SCH ×2 (09:23→21:55)
[2022-08-26] MEDS: FLUTICASONE/VILANTEROL 200/25MCG 14 PUFFS/INHALER INH SCH (09:23)
[2022-08-26] MEDS: DULoxetine HCL 60 MG CAP PO SCH (09:23)
[2022-08-26] MEDS: DOCUSATE SODIUM/SENNA 50/8.6MG TAB PO SCH (09:23)
[2022-08-26] MEDS: TUBE FEEDING WATER FLUSH NG SCH ×4 (09:23→21:56)
[2022-08-26] MEDS: PANTOprazole 40 MG TAB PO SCH (09:23)
[2022-08-26] MEDS: amLODIPine BESYLATE 5 MG TAB PO SCH (09:23)
[2022-08-26] MEDS: predniSONE 10 MG TABLET PO SCH (09:23)
[2022-08-26] MEDS: VANCOMYCIN HCL 125 MG/2.5ML SOLN PO SCH (10:21)
[2022-08-26] MEDS: RASPBERRY SYRUP 5 ML UDP PO SCH (10:21)
[2022-08-26] MEDS: THIAMINE HCL 100 MG in SYRINGE 9 ML IV SCH ×2 (10:21→21:55)
--- NOTE | 2022-08-26 13:32 | Hospitalist Progress Note ---
Date of Service August 26, 2022 Assessment & Plan (1) Acute metabolic encephalopathy: Plan: 2/2 UTI, likely ongoing for last couple of weeks. also offers that she gets intermittently confused on a regular basis at home. Cont antibiotics for infection. Waxing/waning mental status Empirically started with IV Rocephin on admission Initial urine culture was positive for Klebsiella oxytoca and that was sensitive to ceftriaxone Repeat urinary culture grew Enterococcus faecium VRE on 09 August but the colony count was 20,000 She received a course of oral Macrobid for this infection The patient showed much improvement of her in couple apathy and noted to be alert and awake as of 08/18/202208/18 Patient was more awake and alert from Thursday to Thursday, during that time, Macrobid started for UTI secondary VRE, fever also resolved Over the weekend, patient started to be confused, drowsy again, although she remained afebrile Today, patient became very drowsy again Repeat CT head: No acute process Afebrile, with mild leukocytosis, but also has been receiving prednisone 20 mg last week, which has been decreased to 10 mg since yesterday No other infection sources identified at this time, but repeat blood cultures are pending, antibiotics escalated again to daptomycin plus cefepime Possible concussion injury from recent fall? Will consult neurology service for recommendations Worsening Change in mental status Condition deteriorated since evening of 08/18/2022 with more drowsiness She was very lethargic and almost unresponsive on 08/19/2022 Appreciate neurology input and recommendation Has had appropriate imaging studies including MRI which were negative She has started with intravenous cefepime and daptomycin for possible infection Repeat urine and blood culture came back negative White count was elevated likely secondary to use of steroid Antibiotics will be discontinued since there is a rare possibility of extreme drowsiness with the use of cefepime Remains obtunded as of this morning-opening eyes with commands and moving extremities at times Remains hemodynamically stable and afebrile Will get repeat UA, blood culture and chest x-ray-no source of infection Remains obtunded without any acute distress Discussed with the and will continue to observe-no change in her condition No signs and or symptoms of infection Will insert course F and start feeding and will get palliative care evaluation on Thursday Clinically much better today and has been trying to follow commands with minimum words She is back to her baseline and is completely alert, awake and oriented and communicating normally Will start clears orally and if tolerated will discontinue NG tube feeding We will get PT and OT evaluation for discharge planning Remains stable without any acute confusion today Will start oral feeding with pured diet and if tolerated will DC the coresafe feeding Episodes of tachycardia Received 2 doses of 10 mg Cardizem IV on consecutive nights EKG did not show any arrhythmias except sinus rhythm and sinus arrhythmias Will monitor (2) Fever: Plan: Patient remained febrile since admission and the temperature spiking almost e very 24 hours Uncertain etiology. check repeat CXR for any developing pneumonia. Changed antibiotic regimen to include azithromycin and finished 5 days course of antibiotic Checking LE dopplers to rule out DVT-these were negative. CT chest without contrast: No lymphadenopathy or airspace consolidation typical for pneumonia. Remains minimally febrile and white count elevated Temperature remains around 37.6 White count has been improving and no more fever and or chills Repeat blood cultures have been negative-no signs and or symptoms of infection No more fever and or chills Secondary to RA flare? Dr. Seymour discussed with Rheum- Dr. Lucas Prednisone increased from 5mg to 20mg daily Plaquenil (discontinued few months ago), resumed Denies arthralgia except for left wrist with known fracture secondary to fall -- Reduce prednisone to 10-->5 mg daily (3) UTI (urinary tract infection): Plan: per #1 Will repeat UA and CS if needed Repeat UA came back negative for any infection (4) Hyponatremia: Plan: -- Sodium 136 monitor (5) Fall: Plan: Progressive weakness likely related to active infection in setting of prior h/o stroke with known residual deficits. needs SNF (6) Wrist injury: Plan: L triquetrum fracture. Orthopedics is consulted. Splint in place and she appears to have pain well managed. continue PRN Tylenol Cont splint and ice to area TID (7) Generalized weakness: Plan: PT/OT: SNF (8) Recurrent Clostridioides difficile infection: Plan: Seen by ID on 07/18/22. Has had 3 recurrences of c difficile diarrhea. Chronically on vancomycin once daily for suppression which has been keeping her BMs to 1-2 formed stools daily. She continues on this now and will not stop it until she is off the current antibiotics. Cont vanc PO once daily. No diarrhea in last 24 hours. Still getting vancomycin No diarrhea and/or abdominal symptoms (9) DM type 2 (diabetes mellitus, type 2): Plan: She has a slightly elevated A1C of 7.0, likely related to ongoing prednisone use. Not taking any blood glucose lowering medications at home. Pharmacy Glycemic Ctrl consulted-signed off (10) History of stroke: Plan: chronic, cont medical management. (11) CKD (chronic kidney disease), stage III: Plan: Chronic, stable. Cont monitoring and renally dose meds as needed. (12) HTN (hypertension): Plan: chronic, no changes in BP meds. (13) Depression: Plan: chronic, stable. Cont duloxetine per home regimen. (14) DVT prophylaxis: Plan: heparin Full Code Dispo- d/c to [facility] once medically stable Discussed with the in detail Admission and Anticipated Discharge Date Admission Date: August 06, 2022 Subjective 08/20/2022 The patient was seen and examined in telemetry unit She has been very drowsy this morning Only opening her eyes with commands and palpation but has not been talking and/or following any other commands Remains hemodynamically stable without any fever and or chills 08/21/2022 The patient was seen and examined in telemetry unit She remains very drowsy and obtunded Opening her eyes and moving upper extremities without following any commands Does not seems to be in any distress 08/22/2022 The patient was seen and examined in telemetry unit She remains very lethargic and has not been communicating She is noted to have tachycardia around 140s yesterday but this morning seems to be around 100 She did not have any fever and or chills 08/23/2022 The patient was seen and examined in telemetry unit She remains hemodynamically stable with occasional tachycardia Still remains obtunded Opens eyes with commands but does not do anything else on commands 08/24/2022 The patient was seen and examined in telemetry unit in presence of the Today seems to be one of the best days for her She has been following commands minimally and denies any significant symptom NG tube has been in and will start for 08/25/2022 The patient was seen and examined in telemetry unit She has been back to her baseline and talking normally Denies any significant symptoms today Will start oral liquids and if tolerated can DC the NG tube by tomorrow We will get PT and OT evaluation 08/26/2022 The patient was seen and examined in telemetry unit She is a status post physical therapy and a little bit played out She denies any acute symptoms and has been feeling better Review of Systems Review of Systems: All systems reviewed and are unremarkable except as noted below Neurologic: Remains generally weak and lethargy Physical Exam Physical Exam: Lying in bed without any acute distress Constitutional: well developed, well nourished and average body habitus; not ill appearing ENMT: external ear and nose normal, oropharynx normal Neck: trachea midline, no thyromegaly Respiratory: no respiratory distress Auscultation: lungs clear to auscultation bilaterally and + diminished lung sounds Cardiovascular: Rate/Rhythm: regular rate and regular rhythm; not tachycardic Heart Sounds: normal S1 and normal S2; no murmur Extremities: no edema Gastrointestinal (Abdomen): Inspection/Auscultation: normal bowel sounds; abdomen not distended Percussion/Palpation: abdomen soft; abdomen nontender Musculoskeletal: No acute arthritis involving any joint. Remains very weak and lethargic Neurologic: normal touch/pain/proprioception and moves all extremities; not confused Lymphatic: no cervical or axillary lymphadenopathy Results & Data Results & Data ([facility]) Vital Signs (Past 12 Hours) Vital Signs Temp Pulse Pulse Resp BP BP Pulse Ox 08/26/22 12:28 103 H 130/74 08/26/22 12:14 37.3 C 98 H 18 130/74 96 08/26/22 07:00 08/26/22 07:47 36.7 C 86 19 130/67 98 08/26/22 05:54 77 131/64 08/26/22 03:41 36.4 C L 91 H 18 127/69 99 O2 Del Method 08/26/22 12:28 08/26/22 12:14 Room Air 08/26/22 07:00 Room Air 08/26/22 07:47 Room Air 08/26/22 05:54 08/26/22 03:41 Room Air Medications Administered Current Inpatient Medications Acetaminophen (Acetaminophen 325 Mg Tab) 650 mg PO Q4H PRN PRN Reason: pain or fever Stop: 09/10/22 13:26 Last Admin: 08/14/22 14:56 Dose: 650 mg Amlodipine Besylate (Amlodipine Besylate 5 Mg Tab) 10 mg PO DAILY [facility]LA Stop: 09/06/22 08:59 Last Admin: 08/26/22 09:23 Dose: 10 mg Betamethasone Dipropion Augmented (Betamethasone Dip Aug (Diprolene) 0.05% Cr 15 Gm Tube) 1 appln EXT BID PRN PRN Reason: AFFECTED AREA Stop: 09/05/22 22:10 Calamine/Phenol (Menthol-Zinc Oxide 360 Appln/120 Gm Tube) 1 appln EXT BID PRN PRN Reason: AFFECTED AREA Stop: 09/05/22 21:52 Clopidogrel Bisulfate (Clopidogrel Bisulfate 75 Mg Tab) 75 mg PO QAM [facility] Stop: 09/06/22 08:59 Last Admin: 08/26/22 09:23 Dose: 75 mg Cyanocobalamin (Cyanocobalamin (B-12) 500 Mcg Tablet) 2,000 mcg PO [id number] [facility] Stop: 09/07/22 08:59 Last Admin: 08/25/22 09:48 Dose: 2,000 mcg Dextrose (Dextrose 50% 50 Ml Syringe) 25 - 50 ml IV UD PRN; Protocol PRN Reason: Hypoglycemia Protocol Stop: 09/05/22 21:52 Duloxetine HCl (Duloxetine Hcl 60 Mg Cap) 60 mg PO DAILY [facility] Stop: 09/06/22 08:59 Last Admin: 08/26/22 09:23 Dose: 60 mg Enteral Nutritional Formula (Fibersource Hn 1.2 Seng 1000 Ml Bag) 1,000 ml NG UD KARLA; Protocol Stop: 09/23/22 14:59 Last Admin: 08/24/22 18:51 Dose: 1,000 ml Ferrous Sulfate (Ferrous Sulfate 325 Mg Tab) 325 mg PO DAILY [facility] Stop: 09/06/22 08:59 Last Admin: 08/07/22 09:22 Dose: Not Given Fluticasone/Vilanterol (Fluticasone/Vilanterol 200/25mcg 14 Puffs/Inhaler) 1 puffs INH DAILY [facility] Stop: 09/06/22 08:59 Last Admin: 08/26/22 09:23 Dose: 1 puffs Folic Acid (Folic Acid 1 Mg Tab) 1 mg PO QAM [facility] Stop: 09/06/22 08:59 Last Admin: 08/07/22 09:22 Dose: Not Given Glucagon (Glucagon For Inj 1 Mg Vial) 1 mg SQ UD PRN; Protocol PRN Reason: Hypoglycemia Protocol Stop: 09/05/22 21:52 Glucose (Glucose 40% Gel 15 Gm Tube) 15 - 30 gm PO UD PRN; Protocol PRN Reason: Hypoglycemia Protocol Stop: 09/05/22 21:52 Glucose (Glucose 10 Tab/Tube) 4 - 8 tab PO UD PRN; Protocol PRN Reason: Hypoglycemia Treatment Stop: 09/05/22 21:52 Heparin Sodium (Porcine) (Heparin Sod 5,000 Unit/0.5 Ml Vial) 5,000 units SQ Q8 [facility] Stop: 09/05/22 21:59 Last Admin: 08/26/22 06:06 Dose: 5,000 units Hydralazine HCl (Hydralazine Hcl 20 Mg/Ml Vial) 5 mg IV Q6H PRN PRN Reason: systolic bp > 160 Stop: 09/17/22 08:08 Hydroxychloroquine Sulfate (Hydroxychloroquine Sulfate 200 Mg Tab) 200 mg PO HS [facility] Stop: 09/12/22 20:59 Last Admin: 08/25/22 21:50 Dose: 200 mg Promethazine HCl 12.5 mg/ (Sodium Chloride) 50.5 mls @ 202 mls/hr IV Q6H PRN PRN Reason: Nausea And Vomiting Stop: 09/11/22 19:23 Lactated Ringer's (Lr) 1,000 mls @ 60 mls/hr IV .[id number] [facility] Stop: 09/19/22 05:14 Last Admin: 08/26/22 08:00 Dose: 60 mls/hr Thiamine HCl 100 mg/ Syringe 10 mls @ 2 mls/min IV BID [facility] Stop: 09/25/22 00:00 Last Admin: 08/26/22 10:21 Dose: 2 mls/min Insulin Aspart (Insulin Aspart Per Unit) 0 units SC Q6 [facility] Stop: 09/19/22 17:59 Last Admin: 08/26/22 06:07 Dose: 2 units Lactobacillus Acidophilus (Advanced Probiotic 1250 Mg Capsule) 2 cap PO BID [facility] Stop: 09/05/22 21:52 Last Admin: 08/26/22 09:23 Dose: 2 cap Latanoprost (Latanoprost 0.005% Op Soln 2.5 Ml Btl) 1 drops OPB HS [facility] Stop: 09/05/22 21:52 Last Admin: 08/25/22 21:51 Dose: 1 drops Levalbuterol HCl (Levalbuterol Hcl 1.25 Mg/3 Ml Neb) 1.25 mg INH Q4H PRN; Protocol PRN Reason: SOB/COUGH/WHEEZING Stop: 09/05/22 21:52 Magnesium Oxide (Magnesium Oxide 400 Mg Tab) 400 mg PO BID [facility] Stop: 09/05/22 21:52 Last Admin: 08/26/22 09:22 Dose: 400 mg Metoprolol Tartrate (Metoprolol Tartrate 1 Mg/Ml Vial) 5 mg IV Q6 [facility] Stop: 09/20/22 05:59 Last Admin: 08/26/22 12:28 Dose: 5 mg Miconazole Nitrate (Miconazole Nitrate Powder 43 Gm) 1 appln EXT PRN PRN PRN Reason: Affected Skin Folds Stop: 09/10/22 09:54 Miscellaneous (Carbohydrates For Hypoglycemia ) 15 - 30 gm PO UD PRN PRN Reason: Hypoglycemia Protocol Stop: 09/05/22 21:52 Miscellaneous (Solifenacin [Vesicare]: Order Awaiting Action) 1 each N/A QS [facility] Stop: 09/06/22 07:59 Last Admin: 08/07/22 07:45 Dose: Not Given Montelukast Sodium (Montelukast Sodium 10 Mg Tablet) 10 mg PO HS [facility] Stop: 09/05/22 21:52 Last Admin: 08/25/22 21:50 Dose: 10 mg Multivitamins/Minerals (Cerovite Adv Formula Tab) 1 tab PO QDL [facility] Stop: 09/06/22 11:29 Last Admin: 08/07/22 12:50 Dose: Not Given Pantoprazole Sodium (Pantoprazole 40 Mg Tab) 40 mg PO DAILY [facility] Stop: 09/06/22 08:59 Last Admin: 08/26/22 09:23 Dose: 40 mg Polyethylene Glycol (Polyethylene (Miralax) 17 Gm Pack) 17 gm PO DAILY PRN PRN Reason: Constipation Stop: 09/11/22 19:23 Prednisone (Prednisone 10 Mg Tablet) 10 mg PO DAILY [facility] Stop: 09/16/22 08:59 Last Admin: 08/26/22 09:23 Dose: 10 mg Raspberry (Raspberry Syrup 5 Ml Udp) 5 ml PO DAILY [facility] Stop: 09/06/22 08:59 Last Admin: 08/26/22 10:21 Dose: 5 ml Rosuvastatin Calcium (Rosuvastatin Calcium 20 Mg Tab) 20 mg PO QAM [facility] Stop: 09/06/22 08:59 Last Admin: 08/17/22 07:54 Dose: 20 mg Senna/Docusate Sodium (Docusate Sodium/Senna 50/8.6mg Tab) 1 tab PO QAM [facility] Stop: 09/11/22 19:29 Last Admin: 08/26/22 09:23 Dose: Not Given Sterile Water (Tube Feeding Water Flush) 120 ml NG QID [facility] Stop: 09/23/22 14:59 Last Admin: 08/26/22 12:29 Dose: 120 ml Thiamine HCl (Thiamine Hcl 50 Mg Tablet) 50 mg PO DAILY [facility] Stop: 09/06/22 08:59 Last Admin: 08/07/22 09:24 Dose: Not Given Triamcinolone Acetonide (Triamcinolone Acet 0.1% Cr 15 Gm Tube) 1 appln TOP BID PRN PRN Reason: AFFECTED AREA Stop: 09/05/22 21:52 Vancomycin HCl (Vancomycin Hcl 125 Mg/2.5ml Soln) 125 mg PO DAILY [facility] Stop: 09/06/22 08:59 Last Admin: 08/26/22 10:21 Dose: 125 mg Vitamin D (Cholecalciferol 1,000 Units 25 Mcg Tab) 2,000 units PO DAILY [facility] Stop: 09/06/22 08:59 Last Admin: 08/07/22 09:22 Dose: Not Given (1) Fall Encounter type: initial encounter Qualified Code(s): W19.XXXA - Unspecified fall, initial encounter
[2022-08-26] MEDS: HYDROXYCHLOROQUINE SULFATE 200 MG TAB PO SCH (21:55)
[2022-08-26] MEDS: MONTELUKAST SODIUM 10 MG TABLET PO SCH (21:55)
[2022-08-26] MEDS: LATANOPROST 0.005% OP SOLN 2.5 ML BTL OPB SCH (22:46)
[2022-08-27] MEDS: LACTATED RINGER'S 1,000 ML IV SCH ×2 (00:53→17:20)
[2022-08-27] MEDS: INSULIN ASPART PER UNIT SC SCH ×5 (01:01→20:30)
[2022-08-27] MEDS: METOPROLOL TARTRATE 1 MG/ML VIAL IV SCH ×4 (01:02→17:14)
[2022-08-27] MEDS: HEPARIN SOD 5,000 UNIT/0.5 ML VIAL SQ SCH ×3 (06:04→21:14)
[2022-08-27] MEDS: amLODIPine BESYLATE 5 MG TAB PO SCH (07:59)
[2022-08-27] MEDS: CLOPIDOGREL BISULFATE 75 MG TAB PO SCH (08:00)
[2022-08-27] MEDS: DULoxetine HCL 60 MG CAP PO SCH (08:01)
[2022-08-27] MEDS: FLUTICASONE/VILANTEROL 200/25MCG 14 PUFFS/INHALER INH SCH (08:02)
[2022-08-27] MEDS: MAGNESIUM OXIDE 400 MG TAB PO SCH ×2 (08:03→20:28)
[2022-08-27] MEDS: predniSONE 10 MG TABLET PO SCH (08:04)
[2022-08-27] MEDS: TUBE FEEDING WATER FLUSH NG SCH ×4 (08:04→20:31)
[2022-08-27] MEDS: ADVANCED PROBIOTIC 1250 MG CAPSULE PO SCH ×2 (08:05→20:28)
[2022-08-27] MEDS: RASPBERRY SYRUP 5 ML UDP PO SCH (08:05)
[2022-08-27] MEDS: VANCOMYCIN HCL 125 MG/2.5ML SOLN PO SCH (08:06)
[2022-08-27] MEDS: PANTOprazole 40 MG TAB PO SCH (08:07)
[2022-08-27] MEDS: DOCUSATE SODIUM/SENNA 50/8.6MG TAB PO SCH (08:09)
[2022-08-27] MEDS: CYANOCOBALAMIN (B-12) 500 MCG TABLET PO SCH (08:10)
[2022-08-27] MEDS: THIAMINE HCL 100 MG in SYRINGE 9 ML IV SCH ×2 (08:11→20:31)
--- NOTE | 2022-08-27 13:44 | Hospitalist Progress Note ---
Date of Service August 27, 2022 Assessment & Plan (1) Encephalopathy: Plan: (1) Acute metabolic encephalopathy: -- Resolved --Already completed antibiotic course for UTI PT and OT evaluation (2) Fever: Plan: --Likely from UTI Resolved secondary to RA flare? Dr. Seymour discussed with Rheum- Dr. Lucas Prednisone increased from 5mg to 20mg daily Plaquenil (discontinued few months ago), resumed Denies arthralgia except for left wrist with known fracture secondary to fall -- Reduce prednisone to 10-->5 mg daily (3) UTI (urinary tract infection): Plan: per #1 Repeat UA came back negative for any infection (4) Hyponatremia: Plan: -- Sodium 135 (5) Fall: Plan: Progressive weakness likely related to active infection in setting of prior h/o stroke with known residual deficits. needs SNF (6) Wrist injury: Plan: L triquetrum fracture. Orthopedics is consulted. Splint in place and she appears to have pain well managed. continue PRN Tylenol Cont splint and ice to area TID -- pain improved (7) Generalized weakness: Plan: PT/OT: SNF (8) Recurrent Clostridioides difficile infection: Plan: Seen by ID on 07/18/22. Has had 3 recurrences of c difficile diarrhea. Chronically on vancomycin once daily for suppression which has been keeping her BMs to 1-2 formed stools daily. She continues on this now and will not stop it until she is off the current antibiotics. Cont vanc PO once daily. No diarrhea in last 24 hours. Still getting vancomycin No diarrhea and/or abdominal symptoms (9) DM type 2 (diabetes mellitus, type 2): Plan: She has a slightly elevated A1C of 7.0, likely related to ongoing prednisone use. Not taking any blood glucose lowering medications at home. Pharmacy Glycemic Ctrl consulted-signed off (10) History of stroke: Plan: chronic, cont medical management. (11) CKD (chronic kidney disease), stage III: Plan: Chronic, stable. Cont monitoring and renally dose meds as needed. (12) HTN (hypertension): Plan: chronic, no changes in BP meds. (13) Depression: Plan: chronic, stable. Cont duloxetine per home regimen. (14) DVT prophylaxis: Plan: heparin Full Code Dispo- d/c to [facility] once medically stable Discussed with the in detail Admission and Anticipated Discharge Date Admission Date: August 06, 2022 Subjective ff up for encephalopathy, etc Seen with patient's at the bedside visiting Patient is awake and alert, answers all questions appropriately On the weak side States she feels fine overall Denies headache, dizziness, shortness of breath, chest pain, palpitations No abdominal pain, nausea vomiting No other symptoms Review of Systems Review of Systems: all noted and negative except for above Physical Exam Physical Exam: General- oriented x 3, not in distress, speaks in sentences with no effort or accessory muscle use Eyes- anicteric Neck- no JVD Lungs- clear breath sounds bilaterally, no rales/wheezes Heart- normal rate, regular rhythm; no murmurs Abdomen- normal bowel sounds, nondistended, soft, nontender Extremities- no pretibial edema, no calf tenderness Neuro- alert, oriented x 3; no gross focal neurologic deficits Skin- warm & dry Results & Data Results & Data ([facility]) Vital Signs (Past 12 Hours) Vital Signs Temp Pulse Pulse Resp BP BP BP 08/27/22 12:17 111 H 113/57 L 08/27/22 11:45 36.7 C 113 H 18 113/57 L 08/27/22 08:20 08/27/22 07:41 36.9 C 77 18 149/84 H 08/27/22 06:06 78 08/27/22 06:06 101 H 148/68 H 08/27/22 06:05 101 H 148/68 H 08/27/22 03:53 36.6 C 81 18 151/75 H Pulse Ox O2 Del Method 08/27/22 12:17 08/27/22 11:45 90 Room Air 08/27/22 08:20 Room Air 08/27/22 07:41 98 Room Air 08/27/22 06:06 08/27/22 06:06 08/27/22 06:05 08/27/22 03:53 97 Room Air all noted and reviewed including below
[2022-08-27] MEDS: LATANOPROST 0.005% OP SOLN 2.5 ML BTL OPB SCH (20:27)
[2022-08-27] MEDS: HYDROXYCHLOROQUINE SULFATE 200 MG TAB PO SCH (20:28)
[2022-08-27] MEDS: MONTELUKAST SODIUM 10 MG TABLET PO SCH (20:28)
[2022-08-28] MEDS: METOPROLOL TARTRATE 1 MG/ML VIAL IV SCH ×5 (00:10→23:38)
[2022-08-28] MEDS: HEPARIN SOD 5,000 UNIT/0.5 ML VIAL SQ SCH ×3 (05:39→19:46)
[2022-08-28] MEDS: INSULIN ASPART PER UNIT SC SCH ×4 (09:14→20:34)
[2022-08-28 09:15] LABS: Basophils # (auto) 0.01 K/uL (0-0.2); Basophils % (auto) 0.2 %; Eosinophils # (auto) 0.13 K/uL (0-0.50); Eosinophils % (auto) 2.5 %; Hematocrit (blood only) 24.2 % (34.1-44.9); Hemoglobin 7.9 g/dl (12.0-16.0); Immature Granulocytes # (auto) 0.08 K/uL (0.00-0.02); Immature Granulocytes % (auto) 1.5 %; Lymphocytes # (auto) 1.32 K/uL (1.2-3.4); Lymphocytes % (auto) 25.5 %; Mean Corpuscular Hemoglobin 27.2 pg (25.0-34.0); Mean Corpuscular Hgb Conc 32.6 g/dL (32.0-36.0); Mean Corpuscular Volume 83.4 fL (80.0-100.0); Mean Platelet Volume 8.2 fL (9.4-12.3); Monocytes # (auto) 0.42 K/uL (0.24-0.82); Monocytes % (auto) 8.1 %; Neutrophils # (auto) 3.22 K/uL (1.4-6.5); Neutrophils % (auto) 62.2 %; Platelet Count 316 K/uL (130-400); RDW Coefficient of Variation 15.7 % (11.5-14.5); RDW Standard Deviation 46.8 fL (36.4-46.3); White Blood Count 5.18 K/ul (4.8-10.8)
[2022-08-28] MEDS: amLODIPine BESYLATE 5 MG TAB PO SCH (09:15)
[2022-08-28] MEDS: ADVANCED PROBIOTIC 1250 MG CAPSULE PO SCH ×2 (09:15→19:45)
[2022-08-28] MEDS: CLOPIDOGREL BISULFATE 75 MG TAB PO SCH (09:16)
[2022-08-28] MEDS: PANTOprazole 40 MG TAB PO SCH (09:16)
[2022-08-28] MEDS: DULoxetine HCL 60 MG CAP PO SCH (09:16)
[2022-08-28] MEDS: MAGNESIUM OXIDE 400 MG TAB PO SCH ×2 (09:16→19:45)
[2022-08-28] MEDS: FLUTICASONE/VILANTEROL 200/25MCG 14 PUFFS/INHALER INH SCH (09:17)
[2022-08-28] MEDS: RASPBERRY SYRUP 5 ML UDP PO SCH (09:17)
[2022-08-28] MEDS: THIAMINE HCL 100 MG in SYRINGE 9 ML IV SCH ×2 (09:20→19:45)
[2022-08-28] MEDS: VANCOMYCIN HCL 125 MG/2.5ML SOLN PO SCH (09:20)
[2022-08-28] MEDS: DOCUSATE SODIUM/SENNA 50/8.6MG TAB PO SCH (09:22)
[2022-08-28 09:33] LABS: Albumin Globulin Ratio 0.8 (0.9-2); Albumin Level 2.4 gm/dl (3.4-5.0); BUN Creatinine Ratio 24.5 (10-20); Bilirubin,Total 0.4 mg/dl (0.2-1.0); Creatinine Clr Calc Pharmacy 74.6 ml/min; Est GFR (African American) 108.4 ml/min; Est GFR (Non-African American) 93.5 ml/min; Globulin 3.1 gm/dl (2.5-4.0); Potassium 3.4 mmol/L (3.5-5.1); Total Protein 5.5 gm/dl (6.0-8.3)
[2022-08-28 09:35] LABS: Microcytosis Present; Polychromasia 1+
[2022-08-28] MEDS: TUBE FEEDING WATER FLUSH NG SCH ×4 (09:44→19:46)
[2022-08-28] MEDS: predniSONE 5 MG TAB PO SCH (10:23)
[2022-08-28] MEDS: predniSONE 10 MG TABLET PO SCH (10:24)
[2022-08-28] MEDS: LACTATED RINGER'S 1,000 ML IV SCH (10:24)
--- NOTE | 2022-08-28 13:24 | Hospitalist Progress Note ---
Date of Service August 28, 2022 Assessment & Plan (1) Encephalopathy: Plan: (1) Acute metabolic encephalopathy: -- Resolved --Already completed antibiotic course for UTI PT and OT evaluation (2) Fever: Plan: --Likely from UTI Resolved secondary to RA flare? Dr. Seymour discussed with Rheum- Dr. Lucas Prednisone increased from 5mg to 20mg daily Plaquenil (discontinued few months ago), resumed Denies arthralgia except for left wrist with known fracture secondary to fall -- Reduced prednisone to 10-->5 mg daily (3) UTI (urinary tract infection): Plan: per #1 Repeat UA came back negative for any infection (4) Hyponatremia: Plan: -- Sodium 136 (5) Fall: Plan: Progressive weakness likely related to active infection in setting of prior h/o stroke with known residual deficits. needs SNF (6) Wrist injury: Plan: L triquetrum fracture. Orthopedics is consulted. Splint in place and she appears to have pain well managed. continue PRN Tylenol Cont splint and ice to area TID -- pain improved (7) Generalized weakness: Plan: PT/OT: SNF (8) Recurrent Clostridioides difficile infection: Plan: Seen by ID on 07/18/22. Has had 3 recurrences of c difficile diarrhea. Chronically on vancomycin once daily for suppression which has been keeping her BMs to 1-2 formed stools daily. She continues on this now and will not stop it until she is off the current antibiotics. Cont vanc PO once daily. No diarrhea in last 24 hours. Still getting vancomycin No diarrhea and/or abdominal symptoms (9) DM type 2 (diabetes mellitus, type 2): Plan: She has a slightly elevated A1C of 7.0, likely related to ongoing prednisone use. Not taking any blood glucose lowering medications at home. Pharmacy Glycemic Ctrl consulted-signed off (10) History of stroke: Plan: chronic, cont medical management. (11) CKD (chronic kidney disease), stage III: Plan: Chronic, stable. Cont monitoring and renally dose meds as needed. (12) HTN (hypertension): Plan: chronic, no changes in BP meds. (13) Depression: Plan: chronic, stable. Cont duloxetine per home regimen. (14) DVT prophylaxis: Plan: heparin Full Code Dispo- d/c to [facility] in 1-2 days Admission and Anticipated Discharge Date Admission Date: August 06, 2022 Subjective Follow-up for encephalopathy, etc. Seen resting in bed, awake and alert, oriented x3, answers questions appropriat mirna On the weak side But states she feels fine overall No headache, dizziness, chest pain, shortness of breath abdominal pain, or any pain in her body Appetite is okay No other symptoms Review of Systems Review of Systems: all noted and negative except for above Physical Exam Physical Exam: General- oriented x 3, not in distress, speaks in sentences with no effort or accessory muscle use Eyes- anicteric Neck- no JVD Lungs- clear breath sounds bilaterally, no rales/wheezes Heart- normal rate, regular rhythm; no murmurs Abdomen- normal bowel sounds, nondistended, soft, nontender Extremities- no pretibial edema, no calf tenderness Neuro- alert, oriented x 3; no gross focal neurologic deficits Skin- warm & dry Results & Data Results & Data ([facility]) Vital Signs (Past 12 Hours) Vital Signs Temp Pulse Pulse Resp BP BP Pulse Ox 08/28/22 12:16 80 117/65 08/28/22 11:31 36.5 C 78 18 117/65 97 08/28/22 08:00 08/28/22 06:45 36.6 C 68 18 131/71 96 08/28/22 05:38 84 143/84 H 08/28/22 05:32 84 143/84 H 08/28/22 02:46 36.6 C 74 18 132/80 96 O2 Del Method 08/28/22 12:16 08/28/22 11:31 Room Air 08/28/22 08:00 Room Air 08/28/22 06:45 Room Air 08/28/22 05:38 08/28/22 05:32 08/28/22 02:46 Room Air all noted and reviewed including below
[2022-08-28] MEDS: ACETAMINOPHEN 325 MG TAB PO PRN (13:53)
[2022-08-28] MEDS ORDERED: POTASSIUM CHLORIDE CRTAB 20 MEQ TABCR PO STA (14:06)
[2022-08-28] MEDS: LATANOPROST 0.005% OP SOLN 2.5 ML BTL OPB SCH (19:45)
[2022-08-28] MEDS: HYDROXYCHLOROQUINE SULFATE 200 MG TAB PO SCH (19:45)
[2022-08-28] MEDS: MONTELUKAST SODIUM 10 MG TABLET PO SCH (19:46)
[2022-08-29] MEDS: METOPROLOL TARTRATE 1 MG/ML VIAL IV SCH ×2 (05:51→13:11)
[2022-08-29] MEDS: HEPARIN SOD 5,000 UNIT/0.5 ML VIAL SQ SCH ×3 (05:52→20:09)
[2022-08-29] MEDS: INSULIN ASPART PER UNIT SC SCH ×4 (08:43→20:21)
[2022-08-29] MEDS: PANTOprazole 40 MG TAB PO SCH (09:21)
[2022-08-29] MEDS: RASPBERRY SYRUP 5 ML UDP PO SCH (09:21)
[2022-08-29] MEDS: FLUTICASONE/VILANTEROL 200/25MCG 14 PUFFS/INHALER INH SCH (09:21)
[2022-08-29] MEDS: VANCOMYCIN HCL 125 MG/2.5ML SOLN PO SCH (09:21)
[2022-08-29] MEDS: amLODIPine BESYLATE 5 MG TAB PO SCH (09:22)
[2022-08-29] MEDS: ADVANCED PROBIOTIC 1250 MG CAPSULE PO SCH ×2 (09:22→20:08)
[2022-08-29] MEDS: CYANOCOBALAMIN (B-12) 500 MCG TABLET PO SCH (09:22)
[2022-08-29] MEDS: MAGNESIUM OXIDE 400 MG TAB PO SCH ×2 (09:22→20:08)
[2022-08-29] MEDS: DULoxetine HCL 60 MG CAP PO SCH (09:22)
[2022-08-29] MEDS: predniSONE 5 MG TAB PO SCH (09:22)
[2022-08-29] MEDS: CLOPIDOGREL BISULFATE 75 MG TAB PO SCH (09:22)
[2022-08-29] MEDS: TUBE FEEDING WATER FLUSH NG SCH (09:24)
[2022-08-29] MEDS: THIAMINE HCL 100 MG in SYRINGE 9 ML IV SCH (09:45)
[2022-08-29] MEDS: DOCUSATE SODIUM/SENNA 50/8.6MG TAB PO SCH (09:45)
[2022-08-29] MEDS: POTASSIUM CHLORIDE CRTAB 20 MEQ TABCR PO SCH (09:45)
[2022-08-29] MEDS: METOPROLOL SUCC 25MG EXT REL TAB PO SCH (15:03)
--- NOTE | 2022-08-29 17:56 | Hospitalist Progress Note ---
Date of Service August 29, 2022 Assessment & Plan (1) Encephalopathy: Plan: (1) Acute metabolic encephalopathy: -- Resolved --Already completed antibiotic course for UTI PT and OT evaluation -- Oriented x3, answers all questions appropriately On the weak side (2) Fever: Plan: --Likely from UTI Resolved secondary to RA flare? Dr. Seymour discussed with Rheum- Dr. Lucas Prednisone increased from 5mg to 20mg daily Plaquenil (discontinued few months ago), resumed Denies arthralgia except for left wrist with known fracture secondary to fall -- Reduced prednisone to 10-->5 mg daily (3) UTI (urinary tract infection): Plan: per #1 Repeat UA came back negative for any infection (4) Hyponatremia: Plan: -- Sodium 136 (5) Fall: Plan: Progressive weakness likely related to active infection in setting of prior h/o stroke with known residual deficits. needs SNF (6) Wrist injury: Plan: L triquetrum fracture. Orthopedics is consulted. Splint in place and she appears to have pain well managed. continue PRN Tylenol Cont splint and ice to area TID -- pain improved (7) Generalized weakness: Plan: PT/OT: SNF (8) Recurrent Clostridioides difficile infection: Plan: Seen by ID on 07/18/22. Has had 3 recurrences of c difficile diarrhea. Brock olsno on vancomycin once daily for suppression which has been keeping her BMs to 1-2 formed stools daily. She continues on this now and will not stop it until she is off the current antibiotics. Cont vanc PO once daily. No diarrhea in last 24 hours. Still getting vancomycin No diarrhea and/or abdominal symptoms (9) DM type 2 (diabetes mellitus, type 2): Plan: She has a slightly elevated A1C of 7.0, likely related to ongoing prednisone use. Not taking any blood glucose lowering medications at home. Pharmacy Glycemic Ctrl consulted-signed off (10) History of stroke: Plan: chronic, cont medical management. (11) CKD (chronic kidney disease), stage III: Plan: Chronic, stable. Cont monitoring and renally dose meds as needed. (12) HTN (hypertension): Plan: chronic, no changes in BP meds. (13) Depression: Plan: chronic, stable. Cont duloxetine per home regimen. (14) DVT prophylaxis: Plan: heparin Full Code Dispo- d/c to [facility] in 1-2 days Admission and Anticipated Discharge Date Admission Date: August 06, 2022 Subjective Follow-up for encephalopathy, etc. Seen resting in bed, comfortable, not in distress Awake and alert, oriented x3, answers questions appropriately States she feels fine overall Denies pain, shortness of breath Appetite is okay No other symptom Review of Systems Review of Systems: all noted and negative except for above Physical Exam Physical Exam: General- oriented x 3, not in distress, speaks in sentences with no effort or accessory muscle use Eyes- anicteric Neck- no JVD Lungs- clear BS bilaterally, no rales/wheezes Heart- normal rate, regular rhythm; no murmurs Abdomen- normal bowel sounds, nondistended, soft, nontender Extremities- no pretibial edema, no calf tenderness Neuro- alert, oriented x 3; no gross focal neurologic deficits Skin- warm & dry Results & Data Results & Data ([facility]) Vital Signs (Past 12 Hours) Vital Signs Temp Pulse Pulse Resp BP BP Pulse Ox 08/29/22 16:40 36.7 C 88 18 131/65 97 08/29/22 14:29 36.9 C 92 H 16 122/62 93 08/29/22 08:00 78 08/29/22 08:00 08/29/22 07:40 36.7 C 82 19 117/68 94 08/29/22 06:19 96 O2 Del Method 08/29/22 16:40 Room Air 08/29/22 14:29 Room Air 08/29/22 08:00 08/29/22 08:00 Room Air 08/29/22 07:40 Room Air 08/29/22 06:19 Room Air all noted and reviewed including below
[2022-08-29] MEDS: HYDROXYCHLOROQUINE SULFATE 200 MG TAB PO SCH (20:08)
[2022-08-29] MEDS: LATANOPROST 0.005% OP SOLN 2.5 ML BTL OPB SCH (20:08)
[2022-08-29] MEDS: MONTELUKAST SODIUM 10 MG TABLET PO SCH (20:08)
[2022-08-30] MEDS: HEPARIN SOD 5,000 UNIT/0.5 ML VIAL SQ SCH ×3 (04:54→19:59)
[2022-08-30] MEDS: INSULIN ASPART PER UNIT SC SCH ×4 (08:10→20:40)
[2022-08-30] MEDS: MAGNESIUM OXIDE 400 MG TAB PO SCH ×2 (08:37→19:59)
[2022-08-30] MEDS: amLODIPine BESYLATE 5 MG TAB PO SCH (08:37)
[2022-08-30] MEDS: VANCOMYCIN HCL 125 MG/2.5ML SOLN PO SCH (08:37)
[2022-08-30] MEDS: PANTOprazole 40 MG TAB PO SCH (08:37)
[2022-08-30] MEDS: CLOPIDOGREL BISULFATE 75 MG TAB PO SCH (08:37)
[2022-08-30] MEDS: METOPROLOL SUCC 25MG EXT REL TAB PO SCH (08:38)
[2022-08-30] MEDS: ADVANCED PROBIOTIC 1250 MG CAPSULE PO SCH ×2 (08:38→19:59)
[2022-08-30] MEDS: RASPBERRY SYRUP 5 ML UDP PO SCH (08:38)
[2022-08-30] MEDS: predniSONE 5 MG TAB PO SCH (08:39)
[2022-08-30] MEDS: DULoxetine HCL 60 MG CAP PO SCH (08:39)
[2022-08-30] MEDS: POTASSIUM CHLORIDE CRTAB 20 MEQ TABCR PO SCH (08:39)
[2022-08-30] MEDS: THIAMINE HCL 50 MG TABLET PO SCH (08:39)
[2022-08-30] MEDS: FLUTICASONE/VILANTEROL 200/25MCG 14 PUFFS/INHALER INH SCH (08:40)
[2022-08-30] MEDS: DOCUSATE SODIUM/SENNA 50/8.6MG TAB PO SCH (08:59)
--- NOTE | 2022-08-30 13:10 | Hospitalist Progress Note ---
Date of Service August 30, 2022 Assessment & Plan (1) Encephalopathy: Plan: (1) Acute metabolic encephalopathy: -- Resolved --Already completed antibiotic course for UTI -- Oriented x3, answers all questions appropriately On the weak side PT and OT evaluation (2) Fever: Plan: --Likely from UTI Resolved secondary to RA flare? Dr. Seymour discussed with Rheum- Dr. Lucas Prednisone increased from 5mg to 20mg daily Plaquenil (discontinued few months ago), resumed Denies arthralgia except for left wrist with known fracture secondary to fall -- Reduced prednisone to 10-->5 mg daily -- No Arthralgias (3) UTI (urinary tract infection): Plan: per #1 Repeat UA came back negative for any infection (4) Hyponatremia: Plan: -- Sodium 136 (5) Fall: Plan: Progressive weakness likely related to active infection in setting of prior h/o stroke with known residual deficits. needs SNF (6) Wrist injury: Plan: L triquetrum fracture. Orthopedics is consulted. Splint in place and she appears to have pain well managed. continue PRN Tylenol Cont splint and ice to area TID -- pain improved (7) Generalized weakness: Plan: PT/OT: SNF (8) Recurrent Clostridioides difficile infection: Plan: Seen by ID on 07/18/22. Has had 3 recurrences of c difficile diarrhea. Chronically on vancomycin once daily for suppression which has been keeping her BMs to 1-2 formed stools daily. She continues on this now and will not stop it until she is off the current antibiotics. Cont vanc PO once daily. No diarrhea in last 24 hours. Still getting vancomycin No diarrhea and/or abdominal symptoms (9) DM type 2 (diabetes mellitus, type 2): Plan: She has a slightly elevated A1C of 7.0, likely related to ongoing prednisone use. Not taking any blood glucose lowering medications at home. Pharmacy Glycemic Ctrl consulted-signed off (10) History of stroke: Plan: chronic, cont medical management. (11) CKD (chronic kidney disease), stage III: Plan: Chronic, stable. Cont monitoring and renally dose meds as needed. (12) HTN (hypertension): Plan: chronic, no changes in BP meds. (13) Depression: Plan: chronic, stable. Cont duloxetine per home regimen. (14) DVT prophylaxis: Plan: heparin Full Code Dispo- d/c to [facility] in 1-2 days Admission and Anticipated Discharge Date Admission Date: August 06, 2022 Subjective Follow-up for encephalopathy, UTI, etc. Seen resting in bed, comfortable, not in distress, Awake and alert, oriented x2 States she feels fine overall Denies pain, shortness of breath, fevers or chills No other symptoms Review of Systems Review of Systems: all noted and negative except for above Physical Exam Physical Exam: General- oriented x 3, not in distress, speaks in sentences with no effort or accessory muscle use Eyes- anicteric Neck- no JVD Lungs- clear breath sounds bilaterally Heart- normal rate, regular rhythm; no murmurs Abdomen- normal bowel sounds, nondistended, soft, nontender Extremities- no pretibial edema, no calf tenderness Neuro- alert, oriented x 3; no gross focal neurologic deficits Skin- warm & dry Results & Data Results & [facility] ([facility]) Vital Signs (Past 12 Hours) Vital Signs Temp Pulse Pulse Resp BP Pulse Ox O2 Del Method 08/30/22 11:17 36.5 C 85 15 130/72 95 Room Air 08/30/22 08:00 93 H 08/30/22 07:23 37.1 C 98 H 16 153/74 H 95 Room Air 08/30/22 04:18 37.8 C H 104 H 18 123/77 95 Nasal Cannula O2 Flow Rate 08/30/22 11:17 08/30/22 08:00 08/30/22 07:23 08/30/22 04:18 2.0 all noted and reviewed including below
[2022-08-30] MEDS: HYDROXYCHLOROQUINE SULFATE 200 MG TAB PO SCH (19:59)
[2022-08-30] MEDS: LATANOPROST 0.005% OP SOLN 2.5 ML BTL OPB SCH (19:59)
[2022-08-30] MEDS: MONTELUKAST SODIUM 10 MG TABLET PO SCH (19:59)
[2022-08-31] MEDS: HEPARIN SOD 5,000 UNIT/0.5 ML VIAL SQ SCH (06:36)
[2022-08-31] MEDS: INSULIN ASPART PER UNIT SC SCH ×2 (08:05→11:51)
[2022-08-31] MEDS: MAGNESIUM OXIDE 400 MG TAB PO SCH (09:10)
[2022-08-31] MEDS: FLUTICASONE/VILANTEROL 200/25MCG 14 PUFFS/INHALER INH SCH (09:11)
[2022-08-31] MEDS: amLODIPine BESYLATE 5 MG TAB PO SCH (09:11)
[2022-08-31] MEDS: POTASSIUM CHLORIDE CRTAB 20 MEQ TABCR PO SCH (09:11)
[2022-08-31] MEDS: CLOPIDOGREL BISULFATE 75 MG TAB PO SCH (09:12)
[2022-08-31] MEDS: DULoxetine HCL 60 MG CAP PO SCH (09:12)
[2022-08-31] MEDS: predniSONE 5 MG TAB PO SCH (09:12)
[2022-08-31] MEDS: PANTOprazole 40 MG TAB PO SCH (09:12)
[2022-08-31] MEDS: VANCOMYCIN HCL 125 MG/2.5ML SOLN PO SCH (09:13)
[2022-08-31] MEDS: METOPROLOL SUCC 25MG EXT REL TAB PO SCH (09:13)
[2022-08-31] MEDS: RASPBERRY SYRUP 5 ML UDP PO SCH (09:13)
[2022-08-31] MEDS: ADVANCED PROBIOTIC 1250 MG CAPSULE PO SCH (09:13)
[2022-08-31] MEDS: DOCUSATE SODIUM/SENNA 50/8.6MG TAB PO SCH (09:13)
[2022-08-31] MEDS: THIAMINE HCL 50 MG TABLET PO SCH (09:19)
--- NOTE | 2022-08-31 10:53 | Hospitalist Progress Note ---
Date of Service August 31, 2022 Assessment & Plan (1) Encephalopathy: Plan: (1) Acute metabolic encephalopathy: -- Resolved --Already completed antibiotic course for UTI -- Oriented x3, answers all questions appropriately On the weak side PT and OT evaluation (2) Fever: Plan: --Likely from UTI -- Resolved secondary to RA flare? Dr. Seymour discussed with Rheum- Dr. Lucas Prednisone increased from 5mg to 20mg daily Plaquenil (discontinued few months ago), resumed Denies arthralgia except for left wrist with known fracture secondary to fall -- Reduced prednisone to 10-->usual 5 mg daily -- No Arthralgias (3) UTI (urinary tract infection): Plan: per #1 Repeat UA came back negative for any infection (4) Hyponatremia: Plan: -- Sodium 136 (5) Fall: Plan: Progressive weakness likely related to active infection in setting of prior h/o stroke with known residual deficits. needs SNF (6) Wrist injury: Plan: L triquetrum fracture. Orthopedics is consulted. Splint in place and she appears to have pain well managed. continue PRN Tylenol Cont splint and ice to area TID -- pain improved -- ff up with [facility] (7) Generalized weakness: Plan: PT/OT: SNF (8) Recurrent Clostridioides difficile infection: Plan: Seen by ID on 07/18/22. Has had 3 recurrences of c difficile diarrhea. Chronically on vancomycin once daily for suppression which has been keeping her BMs to 1-2 formed stools daily. She continues on this now and will not stop it until she is off the current antibiotics. Cont vanc PO once daily. No diarrhea in last 24 hours. Still getting vancomycin No diarrhea and/or abdominal symptoms (9) DM type 2 (diabetes mellitus, type 2): Plan: She has a slightly elevated A1C of 7.0, likely related to ongoing prednisone use. Not taking any blood glucose lowering medications at home. Pharmacy Glycemic Ctrl consulted-signed off (10) History of stroke: Plan: chronic, cont medical management. (11) CKD (chronic kidney disease), stage III: Plan: Chronic, stable. Cont monitoring and renally dose meds as needed. (12) HTN (hypertension): Plan: chronic, no changes in BP meds. (13) Depression: Plan: chronic, stable. Cont duloxetine per home regimen. Pressure ulcer of sacral region, unstageable, POA -- continue daily wound care (14) DVT prophylaxis: Plan: heparin Full Code Dispo- d/c to [facility] ff up with PCP in 1 week Admission and Anticipated Discharge Date Admission Date: August 06, 2022 Subjective ff up for encephalopathy, etc seen resting in bed, comfortable alert, oriented x 3, answers all questions appropriately states she feels fine overall no chest pain, dyspnea, palpitations, dizziness no pain, fever/chills appetite is good no other symptoms Review of Systems Review of Systems: all noted and negative except for above Physical Exam Physical Exam: General- oriented x 3, not in distress, speaks in sentences with no effort or accessory muscle use Eyes- anicteric Neck- no JVD Lungs- clear breath sounds bilaterally, no rales/wheezes Heart- normal rate, regular rhythm; no murmurs Abdomen- normal bowel sounds, nondistended, soft, nontender Extremities- no pretibial edema, no calf tenderness Neuro- alert, oriented x 3; no gross focal neurologic deficits Skin- warm & dry Results & Data Results & Data ([facility]) Vital Signs (Past 12 Hours) Vital Signs Temp Pulse Pulse Resp BP Pulse Ox O2 Del Method 08/31/22 06:56 36.7 C 88 18 127/54 L 93 Room Air 08/31/22 03:15 37 C 86 18 130/69 93 Room Air 08/31/22 00:47 89 all noted and reviewed including below
--- NOTE | 2022-08-31 12:24 | Discharge Summary ---
Discharge Summary Date of Service August 31, 2022 Notes For Next Care Provider Repeat potassium level in 3-5 days. Medication Changes From Visit Metoprolol XL decreased to 25 mg p.o. daily Plaquenil 200 mg p.o. at bedtime restarted Potassium 40 mg p.o. daily started Senokot S p.o. daily started Admission HPI Per Admitting Provider This is a 76 y/o F with PMH CAD, HTN, HLD, DM II, history of C. difficile on chronic vancomycin therapy, ILD, COPD, rheumatoid arthritis on chronic prednisone therapy, CKD III presenting to the ED with worsening confusion and frequent falls. History primarily obtained by at bedside due to patient's confusion. He endorses worsening confusion over past week with intermittent fevers (tmax 100). Also notes increased weakness with fall 2 days ago when she fell into dresser, landing on L shoulder and wrist. Decreased appetite and fluid intake over the past few days. Has a dull headache. Denies any chest, abdominal pain or SOB. Denies urinary symptoms. Had a cough recently and was taking nyquil to sleep but cough has since improved. has been helping her ambulate around but she is unsteady. Chronic loose stool with history of c diff but is formed. Unable to answer remainder of ROS due to cognitive status. Admission Exam Per Admitting Provider Vitals signs as noted above General Appearance: Chronically appearing, no apparent distress Head: normocephalic, Atraumatic Eyes: normal inspection, EOMI Neck: supple, Trachea midline Respiratory/Chest: Normal breath sounds, CTA, No accessory muscle use Cardiovascular: S1, S2, No murmur Abdomen/GI:Soft, Non tender, Bowel sounds present Extremities/Musculoskeletal:normal inspection, Trace edema LLE thin compared to RLE--chronic as per family, LUE in splint Neurologic/Psych:AAOX2, grossly no focal neurological deficits Skin: normal color, warm Principal Dx & Hospital Course #1 = Principal Diagnosis (1) Encephalopathy: (1) Acute metabolic encephalopathy: -- Resolved --Already completed antibiotic course for UTI -- Oriented x3, answers all questions appropriately On the weak side PT and OT evaluation (2) Fever: Plan: --Likely from UTI -- Resolved secondary to RA flare? Dr. Seymour discussed with Rheum- Dr. Lucas Prednisone increased from 5mg to 20mg daily Plaquenil (discontinued few months ago), resumed Denies arthralgia except for left wrist with known fracture secondary to fall -- Reduced prednisone to 10-->usual 5 mg daily -- No Arthralgias (3) UTI (urinary tract infection): Plan: per #1 Repeat UA came back negative for any infection (4) Hyponatremia: Plan: -- Sodium 136 (5) Fall: Plan: Progressive weakness likely related to active infection in setting of prior h/o stroke with known residual deficits. needs SNF (6) Wrist injury: Plan: L triquetrum fracture. Orthopedics is consulted. Splint in place and she appears to have pain well managed. continue PRN Tylenol Cont splint and ice to area TID -- pain improved -- ff up with [facility] (7) Generalized weakness: Plan: PT/OT: SNF (8) Recurrent Clostridioides difficile infection: Plan: Seen by ID on 07/18/22. Has had 3 recurrences of c difficile diarrhea. Chronically on vancomycin once daily for suppression which has been keeping her BMs to 1-2 formed stools daily. She continues on this now and will not stop it until she is off the current antibiotics. Cont vanc PO once daily. No diarrhea in last 24 hours. Still getting vancomycin No diarrhea and/or abdominal symptoms (9) DM type 2 (diabetes mellitus, type 2): Plan: She has a slightly elevated A1C of 7.0, likely related to ongoing prednisone use. Not taking any blood glucose lowering medications at home. Pharmacy Glycemic Ctrl consulted-signed off (10) History of stroke: Plan: chronic, cont medical management. (11) CKD (chronic kidney disease), stage III: Plan: Chronic, stable. Cont monitoring and renally dose meds as needed. (12) HTN (hypertension): Plan: chronic, no changes in BP meds. (13) Depression: Plan: chronic, stable. Cont duloxetine per home regimen. Pressure ulcer of sacral region, unstageable, POA -- continue daily wound care (14) DVT prophylaxis: Plan: heparin Full Code Dispo- d/c to [facility] ff up with PCP in 1 week Discharge Exam General- oriented x 3, not in distress, speaks in sentences with no effort or accessory muscle use Eyes- anicteric Neck- no JVD Lungs- clear breath sounds bilaterally, no rales/wheezes Heart- normal rate, regular rhythm; no murmurs Abdomen- normal bowel sounds, nondistended, soft, nontender Extremities- no pretibial edema, no calf tenderness Neuro- alert, oriented x 3; no gross focal neurologic deficits Skin- warm & dry Updated Medication List Medication Instructions Recorded Confirmed Type duloxetine 30 mg capsule,delayed 60 mg PO DAILY 07/20/18 08/06/22 History release folic acid 1 mg tablet 1 mg PO QAM 07/20/18 08/06/22 History prednisone 5 mg tablet 5 mg PO QAM 07/20/18 08/06/22 History albuterol sulfate 90 mcg/actuation 2 puff inhalation Q4 PRN Shortness 03/07/19 08/06/22 History aerosol inhaler (ProAir HFA) Of Breath cyanocobalamin (vitamin B-12) 2,000 mcg PO 3XWK 03/07/19 08/06/22 History 1,000 mcg tablet (Vitamin B-12) vit A 300 mcg-C 200 mg-E 27 1 tab PO QDL 03/07/19 08/06/22 History mg-lutein 2 mg and minerals tablet (Ocuvite with Lutein) multivit with 1 tab PO QDL 11/12/19 08/06/22 History yqvbmjrd-irck-KL-lutein 8 mg iron-400 mcg-300 mcg tablet (Centrum Silver Women) montelukast 10 mg tablet 10 mg PO HS 11/15/20 08/06/22 History latanoprost 0.005 % eye drops 1 drp OPB HS 01/03/21 08/06/22 History solifenacin 10 mg tablet (Vesicare) 10 mg PO QDL 08/22/21 08/06/22 History acetaminophen 325 mg tablet 325 mg PO BID PRN Pain 03/21/22 08/06/22 History fluticasone furoate 200 1 inh inhalation DAILY 03/21/22 08/06/22 History mcg-vilanterol 25 mcg/dose inhalation powder (Breo Ellipta) thiamine HCl (vitamin B1) 100 mg 50 mg PO DAILY 03/21/22 08/06/22 History tablet vancomycin 125 mg capsule 125 mg PO DAILY 03/21/22 08/06/22 History clopidogrel 75 mg tablet 75 mg PO QAM #30 tabs 04/01/22 08/06/22 Rx magnesium oxide 400 mg (241.3 mg 400 mg PO BID #60 tabs 04/01/22 08/06/22 Rx magnesium) tablet rosuvastatin 10 mg tablet 20 mg PO QAM #60 tabs 04/01/22 08/06/22 Rx Lactobacillus rhamnosus GG 5 5 cell PO BID 08/06/22 08/06/22 History billion cell oral powder packet ([facility] [employer]) albuterol sulfate 2.5 mg/3 mL 2.5 mg inhalation DIRECTED PRN 08/06/22 08/06/22 History (0.083 %) solution for nebulization Shortness Of Breath Or Wheezing amlodipine 10 mg tablet 10 mg PO DAILY 08/06/22 08/06/22 History betamethasone dipropionate 0.05 % 1 applic topical BID PRN AFFECTED 08/06/22 08/06/22 History topical cream AREA cholecalciferol (vitamin D3) 50 50 mcg PO DAILY 08/06/22 08/06/22 History mcg (2,000 unit) capsule (Vitamin D3) ferrous sulfate 325 mg (65 mg 325 mg PO DAILY 08/06/22 08/06/22 History iron) tablet levalbuterol HCl 1.25 mg/3 mL 1.25 mg inhalation Q4H PRN 08/06/22 08/06/22 History solution for nebulization (Xopenex) SOB/COUGH/WHEEZING menthol 0.44 %-zinc oxide 20.6 % 1 applic topical BID PRN AFFECTED 08/06/22 08/06/22 History topical ointment (Calmoseptine) AREA metoprolol succinate 25 mg 75 mg PO DAILY 08/06/22 08/06/22 History tablet,extended release 24 hr pantoprazole 40 mg tablet,delayed 40 mg PO DAILY 08/06/22 08/06/22 History release (Protonix) triamcinolone acetonide 0.1 % 1 applic topical BID PRN AFFECTED 08/06/22 08/06/22 History topical cream AREA heparin, porcine (PF) 5,000 5,000 unit (0.5 mL) subcut Q12H 30 08/31/22 Rx unit/0.5 mL injection syringe days #30 mL hydroxychloroquine 200 mg tablet 200 mg PO HS 30 days #30 tabs 08/31/22 Rx metoprolol succinate 25 mg 25 mg PO QAM 30 days #30 tabs 08/31/22 Rx tablet,extended release 24 hr potassium chloride 20 mEq 40 meq PO DAILY 30 days #60 tabs 08/31/22 Rx tablet,extended release(part/cryst) sennosides 8.6 mg-docusate sodium 1 tab PO QAM 30 days #30 tabs 08/31/22 Rx 50 mg tablet (Senokot-S) Hospital Stay Data Consultations 08/06/22 17:00 ED Decision to Admit Stat 08/06/22 19:05 Consult Orthopedic Surgery Routine 08/10/22 08:00 Consult Cardiology Routine 08/10/22 14:59 Consult Infectious Diseases Routine 08/18/22 15:54 Consult Neurology Routine Diagnostic Imagining Performed Wrist X-Ray 08/06/22 14:17 XR wrist LT min 3V routine CLINICAL HISTORY: trauma. Left wrist pain. COMPARISON STUDY: None. 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 Possible nondisplaced fracture within the triquetral bone. The distal radius and ulna are intact. There is diffuse soft tissue swelling within the left breast and vascular calcifications. No dislocation. IMPRESSION: Possible nondisplaced fracture within the triquetral bone. ACT 112: Negative or not required by law. Electronically signed by: Peter Olivarez M.D. 08/06/2022 3:04 PM Venous Doppler Study 08/09/22 09:45 ULTRASOUND BILATERAL LOWER EXTREMITY VENOUS CLINICAL HISTORY: Fever. COMPARISON STUDY: Bilateral lower extremity venous ultrasound dated 03/31/2022 TECHNIQUE: Real-time, grayscale, and color Doppler sonography of the deep veins of the right and left lower extremity was performed from the inguinal crease to the calf. Compression and augmentation were utilized. FINDINGS: There is no sonographic evidence of deep venous thrombosis identified in the right or left lower extremity. The common femoral, superficial femoral, and popliteal veins are patent and normally compressible bilaterally. The greater saphenous vein and the profunda femoris vein at the junction with the common femoral vein are clear in both legs. The visualized calf veins are patent bilaterally. IMPRESSION: There is no sonographic evidence of deep venous thrombosis identified in the right or left lower extremity. ACT 112: Negative or not required by law. Electronically signed by: Brigido Gutierrez M.D. 08/09/2022 10:[address] 08/13/22 12:09 CT chest diagnostic wo con CT DOSE: 512.17 mGy.cm CLINICAL HISTORY: 76 years-old Female with r/o pneumonia. Acute shortness of breath TECHNIQUE: Multiaxial CT images of the chest were performed without contrast. A dose lowering technique was utilized adhering to the principles of ALARA. COMPARISON: Chest radiograph 08/09/2022, CTA chest 08/06/2013 FINDINGS: Cardiomegaly without pericardial effusion. Moderate coronary artery calcifications. Atherosclerosis of the thoracic aorta. Dilated pulmonary artery measures up to 3.3 cm suggestive of pulmonary arterial hypertension. No lymphadenopathy identified. Small right greater than left pleural effusions. No pneumothorax or overt pulmonary edema. Minimal dependent subsegmental bibasilar atelectasis. There are no suspicious pulmonary nodules or masses identified. Central airways are patent. The spleen appears be upper limits of normal in size. Cholecystectomy. Exophytic 1.4 cm cyst of the superior pole right kidney. Ill-defined indeterminate 2.0 cm hypodensity of the right hepatic lobe, image 34 series 2. Unremarkable soft tissues. Degenerative changes of the spine and left shoulder. Reverse right shoulder total joint arthroplasty. No acute fracture identified. Chronic tearing mild superior endplate compression of the T2-T5 segments. IMPRESSION: 1. Trace pleural effusions with minimal dependent bibasilar atelectasis. 2. No lymphadenopathy or airspace consolidation typical for pneumonia. 3. Mild cardiomegaly with suggestion of pulmonary arterial hypertension. 4. Artifact versus ill-defined indeterminate lesion of the right hepatic lobe measures 2.0 cm. Attention at follow-up recommended. ACT 112: Negative or not required by law. Electronically signed by: Brant Mccoy M.D. 08/13/2022 1:36 PM Cervical Spine X-Ray 08/17/22 11:21 XR cervical spine 2 or 3V CLINICAL HISTORY: Neck pain, fall, r/o fracture COMPARISON STUDY: Cervical spine MRI 07/24/2018. FINDINGS: The cervical spine is visualized from C1 through T1. The patient's shoulders partially obscure the mid to lower cervical spine resulting in suboptimal evaluation. However, no definite fracture or subluxation. Degenerative changes again noted. Prevertebral soft tissues and the C1-C2 interval appear intact. 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 IMPRESSION: No definite fracture or subluxation within the cervical spine by conventional radiographic technique. ACT 112: Negative or not required by law. Electronically signed by: Peter Olivarez M.D. 08/17/2022 12:[address] 08/18/22 08:[address] DOSE: 1096.46 mGy.cm HISTORY: altered mental status TECHNIQUE: Multiaxial CT images of the head were performed without the use of intravenous contrast. Automated exposure control was utilized for this study. A dose lowering technique was utilized adhering to the principles of ALARA. Comparison: Head CT 08/07/2022. Findings: Mild mucosal thickening within the sphenoid sinuses. The mastoid air cells are clear. The calvarium and skull base are intact. There is no mass, hematoma, midline shift, acute infarct. White matter hypodensity is nonspecific but suggestive of microvascular ischemic change. The ventricles and sulci demonstrate mild age-related involutional changes. Impression: No significant change compared to the prior study. No acute intracranial abnormality. ACT 112: Negative or not required by law. Electronically signed by: Peter Olivarez M.D. 08/18/2022 10:26 AM Liver Ultrasound 08/18/22 09:02 US liver CLINICAL HISTORY: elevate LFTs TECHNIQUE: Multiple real-time sonographic images of the right upper quadrant were obtained. Comparison: Comparison is made to CT abdomen pelvis 03/31/2022 FINDINGS: The liver is diffusely homogenous with normal contour and echogenicity. No focal mass lesions are seen. No intrahepatic ductal dilatation is seen. Patient is status post cholecystectomy. The common duct measures 0.5 cm in diameter at the level of the hepatic artery. The visualized portions of the pancreas appear normal. The right kidney shows normal echogenicity, cortical thickness and renal contour. The right kidney shows no evidence of hydronephrosis or mass. No ascites or free fluid is seen in Uriarte's pouch. IMPRESSION: No acute abnormalities are seen. Patient is status post colostomy. ACT 112: Negative or not required by law. Electronically signed by: Jose Morton M.D. 08/18/2022 11:23 AM Extremity Ultrasound 08/18/22 10:14 US extremity nonvascular comp CLINICAL HISTORY: R knee edema,r/o effusion TECHNIQUE: Real-time grayscale sonographic images of the right medial knee were obtained. Comparison: None available at the time of this dictation. FINDINGS/IMPRESSION: Soft tissue swelling is seen with suggestion of edema or effusion. No drainable fluid collection is seen. ACT 112: Negative or not required by law. Electronically signed by: Jose Morton M.D. 08/18/2022 11:42 AM Brain MRI 08/19/22 11:32 MR brain wo/w con HISTORY: 76 years-old Female altered mental status, r/o acute cva acutely altered mental status COMPARISON: Head CT 08/18/2022, brain MRI 03/25/2022 TECHNIQUE: Multiplanar multisequence MRI of the brain was obtained both with and without the use of 6.2 cc Gadavist FINDINGS: No restricted diffusion to suggest acute or subacute infarct. The visualized midline structures appear unremarkable. Degenerative changes of the imaged cervical spine. There are a few scattered subcentimeter indeterminate foci of blooming artifacts noted throughout the cerebral hemispheres. Involutional changes with moderate T2/FLAIR hyperintense foci throughout the white matter. No acute intracranial hemorrhage, midline shift, abnormal extra axial collection, hydrocephalus or intracranial mass. Chronic basal ganglia lacunar infarct. Cerebral venous sinuses and major arterial flow voids appear patent. Hyperostosis frontalis interna. Prior bilateral lens repair. Mild mucosal thickening of the paranasal sinuses with moderate mastoid effusions. No abnormal enhancement. IMPRESSION: 1. Motion degraded exam. No acute intracranial abnormality, specifically no acute or subacute infarct. 2. Involutional changes with chronic microvascular ischemic disease. 3. No abnormal enhancement. ACT 112: Negative or not required by law. The above report was generated using voice recognition software. It may contain grammatical, syntax or spelling errors. Electronically signed by: Brant Mccoy M.D. 08/19/2022 3:37 PM Chest X-Ray 08/23/22 17:22 XR chest 1V portable CLINICAL HISTORY: post coresafe placement COMPARISON STUDY: Chest CT August 13, 2022. Chest radiograph August 21, 2022. FINDINGS: Lung volumes are diminished. This is unchanged. No evidence for pulmonary edema. Cardiomediastinal silhouette is stable. A right shoulder arthroplasty is incidentally noted. A portion of the feeding tube is obscured overlying devices. However, the tip projects over the proximal duodenum. IMPRESSION: Tip of feeding tube projects over the proximal duodenum. ACT 112: Negative or not required by law. Electronically signed by: Ga Villalta M.D. 08/23/2022 7:54 PM KUB X-Ray 08/25/22 19:46 KUB CLINICAL HISTORY: Enteric tube placement. FINDINGS: 2 AP supine abdominal radiographs are correlated with abdominal CT dated 03/31/2022. Cholecystectomy clips are noted in the right upper quadrant. An enteric tube projects below the diaphragm over the mid stomach. No bowel obstruction is seen. There are no abnormal abdominal calcifications. Vascular calcifications are seen in the pelvis. The skeletal structures are osteopenic and appear intact. There is moderate lumbosacral spondylosis. IMPRESSION: Enteric tube placement as above. Electronically signed by: Brigido Gutierrez M.D. 08/25/2022 9:09 PM 08/06/22 13:46 CT head/brain wo con Stat 08/07/22 17:31 CT head/brain wo con Urgent 08/09/22 09:45 US venous doppler LE BI Routine 08/13/22 12:09 CT chest without contrast [CT chest diagnostic wo con] Routine 08/18/22 08:07 CT head/brain wo con Stat 08/18/22 09:02 US liver Urgent 08/18/22 10:14 US extremity nonvascular comp Routine 08/19/22 11:32 MRI Brain [MR brain wo/w con] Routine Pending Results Patient Have Any Pending Studies at Discharge: No Discharge Instructions Given to Patient (Per Discharging Provider) PLEASE REFER TO ACCOMPANYING HOSPITAL DISCHARGE SUMMARY. Total Time Total Time Spent Total Time Spent (In Minutes): >30 minutes
== END 2022-08-31 13:57 | DRG 689 ==
LOC: ED 13:31 → SUATTDRO 17:50 → 2N 17:50 → 2W 08-07 07:47 → 2S 08-19 03:20
DX: I45.10 Unspecified right bundle-branch block; B95.2 Enterococcus as the cause of diseases classified elsewhere; R50.9 Fever, unspecified; B96.89 Other specified bacterial agents as the cause of diseases classified elsewhere; T45.1X5A Adverse effect of antineoplastic and immunosuppressive drugs, initial encounter; R77.8 Other specified abnormalities of plasma proteins; Z79.52 Long term (current) use of systemic steroids; E78.5 Hyperlipidemia, unspecified; R53.1 Weakness; I69.30 Unspecified sequelae of cerebral infarction; W01.190A Fall on same level from slipping, tripping and stumbling with subsequent striking against furniture, initial encounter; G93.41 Metabolic encephalopathy; J18.9 Pneumonia, unspecified organism; E87.1 Hypo-osmolality and hyponatremia; I49.1 Atrial premature depolarization; J84.89 Other specified interstitial pulmonary diseases; Z91.048 Other nonmedicinal substance allergy status; F32.9 Major depressive disorder, single episode, unspecified; N39.0 Urinary tract infection, site not specified; I47.1 Supraventricular tachycardia; Z79.2 Long term (current) use of antibiotics; R29.6 Repeated falls; I12.9 Hypertensive chronic kidney disease with stage 1 through stage 4 chronic kidney disease, or unspecified chronic kidney disease; A04.71 Enterocolitis due to Clostridium difficile, recurrent; Z79.82 Long term (current) use of aspirin; M19.031 Primary osteoarthritis, right wrist; M06.9 Rheumatoid arthritis, unspecified; N18.30 Chronic kidney disease, stage 3 unspecified; Z88.7 Allergy status to serum and vaccine; Z88.0 Allergy status to penicillin; M19.032 Primary osteoarthritis, left wrist; R94.31 Abnormal electrocardiogram [ECG] [EKG]; E11.65 Type 2 diabetes mellitus with hyperglycemia; Z79.899 Other long term (current) drug therapy; Z88.8 Allergy status to other drugs, medicaments and biological substances; J44.9 Chronic obstructive pulmonary disease, unspecified; Z79.51 Long term (current) use of inhaled steroids; I48.0 Paroxysmal atrial fibrillation; L89.150 Pressure ulcer of sacral region, unstageable; I25.10 Atherosclerotic heart disease of native coronary artery without angina pectoris; Z79.02 Long term (current) use of antithrombotics/antiplatelets; S62.115A Nondisplaced fracture of triquetrum [cuneiform] bone, left wrist, initial encounter for closed fracture; R26.81 Unsteadiness on feet; T43.215A Adverse effect of selective serotonin and norepinephrine reuptake inhibitors, initial encounter; E11.22 Type 2 diabetes mellitus with diabetic chronic kidney disease

== ENCOUNTER 2023-05-08 09:59 | Inpatient (IN) ==
[2023-05-08 10:45] LABS: Hematocrit (blood only) 39.9 % (37.0-47.0); Mean Corpuscular Hemoglobin 28.6 pg (25.0-34.0); Mean Corpuscular Hgb Conc 35.1 g/dL (32.0-36.0); Mean Corpuscular Volume 81.6 fL (80.0-100.0); Mean Platelet Volume 8.8 fL (9.4-12.4); Platelet Count 169 K/uL (130-400); RDW Coefficient of Variation 15.9 % (11.5-14.5); RDW Standard Deviation 47.6 fL (36.4-46.3); Red Blood Count 4.89 M/uL (4.20-5.40); White Blood Count 3.83 K/ul (4.8-10.8)
--- NOTE | 2023-05-08 10:45 | XRay Report ---
XR chest 1V portable CLINICAL HISTORY: Sepsis TECHNIQUE: Single frontal radiograph of the chest was obtained. Comparison: Comparison is made to chest radiograph 08/23/2022 FINDINGS: Right reverse shoulder arthroplasty is seen. The cardiomediastinal silhouette is normal. The lungs ar e clear. No evidence of pleural effusion or pneumothorax. IMPRESSION: No acute abnormalities and in particular no radiographic evidence of pneumonia. ACT 112: Negative or not required by law. Electronically signed by: Jose Morton M.D. 05/08/2023 10:44 AM
[2023-05-08 10:51] LABS: Partial Thromboplastin Time 29.1 Seconds (21.0-31.0); Prothrombin Time 10.7 Seconds (9.0-12.0)
[2023-05-08 10:58] LABS: Appearance Urine Cloudy (Clear); Bacteria Urine Automated 4+ (Negative); Bilirubin Urine Negative (Negative); Blood Urine Negative (Negative); Color Urine Yellow; Epithelial Cell Urine Auto 20-30 /lpf (0-5); Glucose Urine UA Negative (Negative); Ketones Urine Trace (Negative); Leukocyte Esterase Urine Negative (Negative); Nitrite Urine Negative (Negative); Protein Urine 2+ (Negative); RBC Urine Automated 0-4 /hpf (0-4); Specific Gravity Urine 1.017 (1.000-1.030); Urobilinogen Urine Negative (Negative); pH Urine 6.5 (4.5-7.5)
--- NOTE | 2023-05-08 10:59 | CT Scan Report ---
CT head/brain wo con CLINICAL HISTORY: 77 years-old Female with ams. Acutely altered mental status TECHNIQUE: Multiple axial CT images of the head were obtained without contrast. A dose lowering tech nique was utilized adhering to the principles of ALARA. CT DOSE: 625.80 mGy.cm COMPARISON: 08/18/2022 FINDINGS: No acute intracranial hemorrhage, midline shift, intracranial mass, hydrocephalus, territorial ischem ia or abnormal extra-axial collection. Involutional changes with chronic microvascular ischemic disea se. The calvarium is intact. Small left mastoid effusion. The paranasal sinuses are generally clear. Unr emarkable soft tissues. Prior bilateral lens repair. IMPRESSION: No acute intracranial abnormality. ACT 112: Negative or not required by law. The above report was generated using voice recognition software. It may contain grammatical, syntax o r spelling errors. Electronically signed by: Brant Mccoy M.D. 05/08/2023 10:58 AM
[2023-05-08 11:06] LABS: Alanine Aminotransferase 36 U/L (7-52); Alkaline Phosphatase 119 U/L (34-104); Anion Gap 9 (3-11); Aspartate Aminotransferase 48 U/L (13-39); BUN Creatinine Ratio 10.8 (10-20); Bilirubin Direct 0.1 mg/dl (0-0.2); Bilirubin,Total 0.8 mg/dl (0.2-1.0); Blood Urea Nitrogen 14 mg/dl (6-23); Carbon Dioxide 27 mmol/L (21-32); Chloride 93 mmol/L (98-107); Est GFR (African American) 46.5 ml/min; Est GFR (Non-African American) 40.1 ml/min; Glucose 204 mg/dl (70-99(Fasting)); Magnesium 1.8 mg/dl (1.7-2.4); Potassium 4.4 mmol/L (3.5-5.1); Sodium 129 mmol/L (136-145); Total Protein 7.7 gm/dl (6.0-8.3)
[2023-05-08 11:10] LABS: Troponin I High Sensitivity 17.9 pg/ml (0-14)
[2023-05-08 11:43] LABS: Influenza A virus by PCR Negative (Neg); Influenza B virus by PCR Negative (Neg); RSV by PCR Negative (Neg); SARS CoV2 RNA(COVID-19) Ceph NEGATIVE (Negative)
[2023-05-08] MEDS ORDERED: CEFEPIME 2,000 MG in SYRINGE 0 ML IV STA (12:19)
[2023-05-08 12:20] LABS: Basophils # (auto) 0.02 K/uL (0.00-0.20); Basophils % (auto) 0.5 %; Eosinophils # (auto) 0.01 K/uL (0.00-0.50); Eosinophils % (auto) 0.3 %; Lymphocytes # (auto) 2.98 K/uL (1.20-3.40); Lymphocytes % (auto) 77.8 %; Monocytes # (auto) 0.47 K/uL (0.11-0.59); Monocytes % (auto) 12.3 %; Neutrophils # (auto) 0.35 K/uL (1.40-6.50); Neutrophils % (auto) 9.1 %
[2023-05-08] MEDS ORDERED: DAPTOmycin 500 MG in SYRINGE 0 ML IV STA (12:22)
--- NOTE | 2023-05-08 12:45 | History & Physical Report ---
Date of Service May 08, 2023 Assessment & Plan (1) Fever and neutropenia: (2) Acute UTI: (3) Cat scratch: (4) DM type 2 (diabetes mellitus, type 2): (5) Paroxysmal atrial fibrillation: (6) Hyponatremia: Plan This is a 77-year-old female who has significant past medical history of T2DM, HTN, HLD, interstitial lung disease, COPD, chronic right-sided heart failure, CAD, history of CVA, paroxysmal atrial fibrillation, GERD, osteoporosis, diabetic polyneuropathy, POA G, rheumatoid arthritis, history of C. difficile, depression and neutropenia who presents to ED secondary to complaint of Fever x1 month. Per CMS guidelines patient meets for sepsis criteria secondary to neutropenia, tachycardia and documented fever in outpatient setting. She was initially ordered to daptomycin and cefepime Urine and blood cultures were obtained Lactic acid was normal. Patient was tachycardic during my evaluation but blood pressure was elevated. Sepsis Metabolic encephalopathy Neutropenic fever Presumed UTI Cat scratch Dorsal aspect L wrist Admit to PCU Empirically cover with IV daptomycin, cefepime and oral azithromycin (cat scratch) Patient with previous history of VRE UTI, hence the daptomycin will hold patient's statin therapy Patient ordered 500 mL fluid bolus in ED We will continue maintenance fluids for additional liter until reevaluated in a.m. Await blood and urine cultures Lactic acid WNL, normotensive Consult wound nurse secondary to skin tear/cat scratch on dorsal aspect of left wrist - will place ointment bid for now, no drainage to culture CAD Chronic right-sided heart failure Elevated troponin Hypertension bp elevated, missed a.m. meds in setting of sepsis will give oral metoprolol today, but hold other BP meds unless pt becomes significantly hypertensive continue amlodipine, metoprolol in a.m. hold statin in setting of daptomycin use daily weights, pt euvolemic History of CVA continue plavix, statin on hold chronic stable PAF chronic, stable continue metoprolol not on OAC Diet-controlled T2DM with polyneuropathy chronic, stable last a1c 6.0 in december, will repeat in a.m. lantus/novolog per protocol CKD stage III chronic, stable cr at baseline, avoid nephrotoxic agents Acute hyponatremia na 129, serum osm, urine osm, urine na s/p IVF follow bmp, if worsening consult nephrology Chronic C. difficile infection follows judith ID, stable continue oral vanco Rheumatoid arthritis Chronic prednisone therapy hold plaquenil during infectious work up Neutropenia has been worked up with BM bx and p. smear as OP needs to f/u with hematology as OP She has not followed up since biopsy in jul 05 COPD ILD continue home inhalers chronic, stable, no acute exac DVT prophylaxis: Heparin Full code PCP: João Dispo: Admit to PCU Patient was seen and examined in collaboration with, Dr. Boogie, please see addendum A total of 90 was spent coordinating, documenting, and providing care for this patient excluding time spent in the performance of separately billed services. This included personally viewing all current laboratories and imaging studies, medication reconciliation, outpatient chart review, and discussion with specialists. History of Present Illness Chief Complaint: Fever x 1 month Primary Care Provider: Leni Moyer, This is a 77-year-old female who has significant past medical history of T2DM, HTN, HLD, interstitial lung disease, COPD, chronic right-sided heart failure, CAD, history of CVA, paroxysmal atrial fibrillation, GERD, osteoporosis, diabetic polyneuropathy, POA G, rheumatoid arthritis, history of C. difficile, depression and neutropenia who presents to ED secondary to complaint of Fever x1 month. Of significance she was seen in PCP office today with reports of fever with Tmax of 103, confusion and fatigue. Symptoms have been ongoing and worsening for the past month. She was referred to ED for further evaluation. In clinic her temp was documented at 38.9 with a pulse of 110. is at bedside and also helps elicit history. She has been having intermittent fevers for the past month with temperatures of 10 2-1 03. When her temperature is elevated she becomes confused, seeing things and talking to things that are not there. has witnessed this. They state that this is happened in the past and her fevers would just go away; however since that of been ongoing for a month they decided to be seen. She does complain of dysuria and increased frequency with urination. She does have prior history of UTI and states it feels similar. She also notes that she got scratched by her cat 1.5 weeks ago and has been putting antibiotic ointment on it. She denies any chills, sweats, lightheadedness, dizziness, chest pain, cough, nausea, vomiting, diarrhea, hematuria or melena. She does have chronic shortness of breath due to underlying lung disease which is stable. At baseline she typically ambulates with a cane or walker. She last fell 1 month ago with no injury. She did not take any of her medications this morning. at bedside helps her with medication management. There are no other open wounds other than the cat scratch. In ED patient met sepsis criteria secondary to fever, neutropenia and tachycardia. She also missed her morning dose of metoprolol. Her initial urinalysis concerning for possible UTI. Blood and urine cultures obtained. Lactic acid and procalcitonin were normal. She did have a mildly bumped troponin and EKG was unchanged from baseline. She was ordered IV cefepime and daptomycin but these have not yet been administered prior to my evaluation. She also was mildly hyponatremic and hypochloremic. Patient's epic chart was reviewed. She does have history of chronic C. difficile. She was last seen by infectious disease in February 2023. At that time they recommended discontinuing vancomycin as she had been on of it for 2 years, but this resulted in more frequent diarrhea and therefore she is now back on it 4 times a day. She also has an underlying neutropenia which was discovered during hospitalization in November 2021. She did have hematology work-up as outpatient in June with a peripheral smear and bone marrow biopsy which was relatively unrevealing. She has not followed up with hematology but states that she does have a outpatient follow-up in the next couple weeks. Allergies Allergy/AdvReac Type Severity Reaction Status Date / Time Influenza Virus Vaccines Allergy Severe FLOWN TO Verified 05/08/23 11:44 [facility]. methotrexate Allergy Intermediate RASH/PNEUMO Verified 05/08/23 11:44 N[facility] Penicillins Allergy Intermediate hives Verified 05/08/23 11:44 ranitidine Allergy Intermediate rash Verified 05/08/23 11:44 [facility] AdvReac Severe CAUSE Uncoded 05/08/23 11:44 BREATHING ISSUES Home Medications Medication Instructions Recorded Confirmed Type duloxetine 30 mg capsule,delayed 60 mg PO QAM 07/20/18 05/08/23 History release folic acid 1 mg tablet 1 mg PO QAM 07/20/18 05/08/23 History prednisone 5 mg tablet 5 mg PO QAM 07/20/18 05/08/23 History albuterol sulfate 90 mcg/actuation 2 puff inhalation Q4 PRN Shortness 03/07/19 05/08/23 History aerosol inhaler (ProAir HFA) Of Breath cyanocobalamin (vitamin B-12) 2,000 mcg PO 3XWK 03/07/19 05/08/23 History 1,000 mcg tablet (Vitamin B-12) vit A 300 mcg-C 200 mg-E 27 1 tab PO QDL 03/07/19 05/08/23 History mg-lutein 2 mg and minerals tablet (Ocuvite with Lutein) [id number] 8 mg-folic 400 1 tab PO QDL 11/12/19 05/08/23 History mcg-K 50 mcg-lutein 300 mcg tablet (Centrum Silver Women) montelukast 10 mg tablet 10 mg PO HS 11/15/20 05/08/23 History latanoprost 0.005 % eye drops 1 drp OPB HS 01/03/21 05/08/23 History solifenacin 10 mg tablet (Vesicare) 10 mg PO QDL 08/22/21 05/08/23 History acetaminophen 325 mg tablet 325 mg PO BID PRN Pain 03/21/22 05/08/23 History fluticasone furoate 200 1 inh inhalation DAILY 03/21/22 05/08/23 History mcg-vilanterol 25 mcg/dose inhalation powder (Breo Ellipta) thiamine HCl (vitamin B1) 100 mg 50 mg PO DAILY 03/21/22 05/08/23 History tablet vancomycin 125 mg capsule 125 mg PO Q6H 03/21/22 05/08/23 History clopidogrel 75 mg tablet 75 mg PO QAM #30 tabs 04/01/22 05/08/23 Rx magnesium oxide 400 mg (241.3 mg 400 mg PO BID #60 tabs 04/01/22 05/08/23 Rx magnesium) tablet Lactobacillus rhamnosus GG 5 5 cell PO BID 08/06/22 05/08/23 History billion cell oral powder packet ([employer] Probiotics) albuterol sulfate 2.5 mg/3 mL 2.5 mg inhalation DIRECTED PRN 08/06/22 05/08/23 History (0.083 %) solution for nebulization Shortness Of Breath Or Wheezing amlodipine 10 mg tablet 10 mg PO QAM 08/06/22 05/08/23 History betamethasone dipropionate 0.05 % 1 applic topical BID PRN AFFECTED 08/06/22 05/08/23 History topical cream AREA cholecalciferol (vitamin D3) 50 50 mcg PO QAM 08/06/22 05/08/23 History mcg (2,000 unit) capsule (Vitamin D3) ferrous sulfate 325 mg (65 mg 325 mg PO QAM 08/06/22 05/08/23 History iron) tablet levalbuterol HCl 1.25 mg/3 mL 1.25 mg inhalation Q4H PRN 08/06/22 05/08/23 History solution for nebulization (Xopenex) SOB/COUGH/WHEEZING menthol 0.44 %-zinc oxide 20.6 % 1 applic topical BID PRN AFFECTED 08/06/22 05/08/23 History topical ointment (Calmoseptine) AREA pantoprazole 40 mg tablet,delayed 40 mg PO QAM 08/06/22 05/08/23 History release (Protonix) triamcinolone acetonide 0.1 % 1 applic topical BID PRN AFFECTED 08/06/22 05/08/23 History topical cream AREA hydroxychloroquine 200 mg tablet 200 mg PO HS 30 days #30 tabs 08/31/22 05/08/23 Rx metoprolol succinate 25 mg 25 mg PO DAILY 05/08/23 05/08/23 History tablet,extended release 24 hr rosuvastatin 10 mg tablet 20 mg PO HS 05/08/23 05/08/23 History Past Med/Surg History Medical History Abnormal ECG Acute hyponatremia Asthma inhalers prn Chronic steroid use prednisone daily CKD (chronic kidney disease), stage III CKD (chronic kidney disease), stage III COPD (chronic obstructive pulmonary disease) inhalers prn Depression DJD of right shoulder DM type 2 (diabetes mellitus, type 2) DVT prophylaxis Dyslipidemia Elevated troponin Gastroparesis GERD (gastroesophageal reflux disease) Glaucoma Gout H/O interstitial lung disease "drug induced- methotrexate " Heart disease History of stroke HTN (hypertension) Hyponatremia Hyponatremia Immunosuppressed status Migraines Nontraumatic rectus hematoma NSTEMI (non-ST elevated myocardial infarction) (08/06/13) NSTEMI (non-ST elevated myocardial infarction) NSTEMI (non-ST elevated myocardial infarction) Osteoarthritis Peripheral neuropathy Recurrent Clostridium difficile diarrhea Rheumatoid arthritis "on chronic steroids" RSV infection Syncope Thrush, oral UTI (urinary tract infection) Visual hallucinations Wrist fracture, left Surgical History H/O cardiac catheterization "cath 07/2013- single vessel CAD involving apical segment LAD, medical management indicated" H/O colonoscopy History of esophagogastroduodenoscopy (EGD) History of hysterectomy History of tooth extraction all top teeth S/P removal of ovarian cyst S/P rotator cuff repair "right shoulder" S/P total knee arthroplasty "left knee" Family History Father Family history of diabetes mellitus Mother Heart disease Hypertension Other No family history of adverse response to anesthesia Social History Smoking Status: Never smoker Second Hand Exposure: No; Do You Dip or Chew Tobacco: No; Hx Alcohol Use: No Hx Substance Use: No Preferred Language: Mongolian Communication Ability: Effective Licensed Midwife Required: No Beliefs That Will Affect Care: None marital status: Current Living Situation: Spouse current occupational status: retired current occupation: Former [employer] Feels Safe at Home: Yes Assistive Devices: Bedside Commode, Walker and Wheelchair Review of Systems Review of Systems: All systems reviewed & are unremarkable except as noted in HPI & below Physical Exam Physical Exam: Constitutional: WD/WN, elderly, F vitals as above, NAD, sitting up in bed, pleasant, conversing easily Head: Normocephalic, Atraumatic Eyes: PERRL, conjunctivae normal, anicteric sclerae ENMT: external ear and nose normal, oropharynx normal edentulous Neck: trachea midline, no thyromegaly normal visual inspection Respiratory: normal respiratory effort, lungs clear to auscultation, no wheeze, rales, rhonchi. Normal insp/exp effort, no accessory muscle use Cardiovascular: tachycardic rate, reg rhythm, no murmur, no edema Vessels: no JVD or carotid bruit Chest: normal inspection of chest Abdomen: normal bowel sounds, soft, nontender, no hepatosplenomegaly Musculoskeletal: no cyanosis or clubbing, extremities motor strength 5/5 Skin: +cat scratch/skin tear to dorsal aspect of left wrist with surrounding erythema but no warm, no lymphangitis, multiple area of ecchymosis on uppper ext, warm and dry normal turgor Neurologic: PERRL, EOMI, accommodation nl, no face palsy, no dysarthria CN's II-XI intact bilaterally and moves all extremities Psychiatric: A+Ox3, euthymic affect Lymphatic: no cervical or axillary lymphadenopathy : deferred Results & Data Results & Data Vital Signs (Past 12 Hours) Vital Signs Temp Pulse Pulse Resp BP BP Pulse Ox 05/08/23 11:45 105 H 18 97 05/08/23 11:36 102 H 20 97 05/08/23 11:21 106 H 18 96 05/08/23 11:06 107 H 18 98 05/08/23 10:58 105 H 05/08/23 10:48 100 H 20 158/90 H 95 05/08/23 10:46 98 05/08/23 10:03 36.7 C 101 H 16 122/70 96 O2 Del Method 05/08/23 11:45 Room Air 05/08/23 11:36 Room Air 05/08/23 11:21 Room Air 05/08/23 11:06 Room Air 05/08/23 10:58 05/08/23 10:48 Room Air 05/08/23 10:46 Room Air 05/08/23 10:[address] 05/08/23 10:20 CT head/brain wo con CLINICAL HISTORY: 77 years-old Female with ams. Acutely altered mental status TECHNIQUE: Multiple axial CT images of the head were obtained without contrast. A dose lowering technique was utilized adhering to the principles of ALARA. CT DOSE: 625.80 mGy.cm COMPARISON: 08/18/2022 FINDINGS: No acute intracranial hemorrhage, midline shift, intracranial mass, hydrocephalus, territorial ischemia or abnormal extra-axial collection. Involutional changes with chronic microvascular ischemic disease. The calvarium is intact. Small left mastoid effusion. The paranasal sinuses are generally clear. Unremarkable soft tissues. Prior bilateral lens repair. IMPRESSION: No acute intracranial abnormality. ACT 112: Negative or not required by law. The above report was generated using voice recognition software. It may contain grammatical, syntax or spelling errors. Electronically signed by: Brant Mccoy M.D. 05/08/2023 10:58 AM Chest X-Ray 05/08/23 10:21 XR chest 1V portable CLINICAL HISTORY: Sepsis TECHNIQUE: Single frontal radiograph of the chest was obtained. Comparison: Comparison is made to chest radiograph 08/23/2022 FINDINGS: Right reverse shoulder arthroplasty is seen. The cardiomediastinal silhouette is normal. The lungs are clear. No evidence of pleural effusion or pneumothorax. IMPRESSION: No acute abnormalities and in particular no radiographic evidence of pneumonia. ACT 112: Negative or not required by law. Electronically signed by: Jose Morton M.D. 05/08/2023 10:44 AM Medications Administered Medication List Discontinued Medications Azithromycin (Azithromycin 250 Mg Tab) 500 mg PO NOW ONE Stop: 05/08/23 13:47 Last Admin: 05/08/23 14:04 Dose: 500 mg Cefepime HCl 2,000 mg/ Syringe 20 mls @ 5 mls/min IV NOW STA Stop: 05/08/23 12:22 Last Admin: 05/08/23 14:03 Dose: 5 mls/min Daptomycin 500 mg/ Syringe 10 mls @ 5 mls/min IV NOW STA; Protocol Stop: 05/08/23 12:23 Last Admin: 05/08/23 14:03 Dose: 5 mls/min Sodium Chloride (Nss 1000ml) 500 mls @ 999 mls/hr IV .Q31M ONE Stop: 05/08/23 13:56 Last Infusion: 05/08/23 15:17 Dose: Infused Metoprolol Succinate (Metoprolol Succ 25mg Ext Rel Tab) 25 mg PO NOW STA Stop: 05/08/23 13:27 Last Admin: 05/08/23 14:14 Dose: 25 mg ECG Rate (beats per minute): 103 Rhythm: sinus tachycardia Findings: + PAC Additional Comments: first degree AV block, RBBB, ECG viewed by me and compared to ecg from 08/2022 COVID- Results Results COVID-19 Adm Lab Results: RBC 4.89 M/uL (4.20-5.40) 05/08/23 WBC 3.83 K/ul (4.8-10.8) L 05/08/23 Hgb 14.0 g/dl (12.0-16.0) 05/08/23 Hct 39.9 % (37.0-47.0) 05/08/23 Plt Count 169 K/uL (130-400) 05/08/23 Neutrophils (%) (Auto) 9.1 % 05/08/23 Lymphocytes (%) (Auto) 77.8 % 05/08/23 Monocytes # (Auto) 0.47 K/uL (0.11-0.59) 05/08/23 Eosinophils # (Auto) 0.01 K/uL (0.00-0.50) 05/08/23 Immature Granulocyte % (Auto) 0.0 % 05/08/23 Neutrophils # (Auto) 0.35 K/uL (1.40-6.50) L* 05/08/23 Lymphocytes # (Auto) 2.98 K/uL (1.20-3.40) 05/08/23 Monocytes # (Auto) 0.47 K/uL (0.11-0.59) 05/08/23 Eosinophils # (Auto) 0.01 K/uL (0.00-0.50) 05/08/23 Basophils # (Auto) 0.02 K/uL (0.00-0.20) 05/08/23 Immature Granulocyte # (Auto) 0.00 K/uL (0.01-0.20) L 05/08 Na 129 mmol/L (136-145) L 05/08/23 K 4.4 mmol/L (3.5-5.1) 05/08/23 Cl 93 mmol/L (98-107) L 05/08/23 CO2 27 mmol/L (21-32) 05/08/23 Anion Gap 9 (3-11) 05/08/23 BUN 14 mg/dl (6-23) 05/08/23 Creatinine 1.30 mg/dl (0.6-1.2) H 05/08/23 BUN/Creatinine Ratio 10.8 (10-20) 05/08/23 Glucose Level 204 mg/dl (70-99(Fasting)) H 05/08/23 Ca 10.0 mg/dl (8.6-10.3) 05/08/23 Total Bilirubin 0.8 mg/dl (0.2-1.0) 05/08/23 Direct Bilirubin 0.1 mg/dl (0-0.2) 05/08/23 AST/SGOT 48 U/L (13-39) H 05/08/23 ALT/SGPT 36 U/L (7-52) 05/08/23 Alkaline Phosphatase 119 U/L (34-104) H 05/08/23 Total Protein 7.7 gm/dl (6.0-8.3) 05/08/23 Albumin 4.0 gm/dl (3.4-5.0) 05/08/23 Procalcitonin 0.20 ng/ml (0-0.5) 05/08/23 PTT 29.1 Seconds (21.0-31.0) 05/08/23 INR 1.0 (0.9-1.1) 05/08/23 COVID-19 PCR NEGATIVE (Negative) 05/08/23 Influenza Virus Type A (PCR) Negative (Neg) 05/08/23 Influenza Virus Type B (PCR) Negative (Neg) 05/08/23 Chest X-Ray 05/08/23 Code Status & VTE Plan Code Status FULL CODE VTE Prophylaxis Plan VTE Prophylaxis will be ordered: Yes
[2023-05-08] MEDS ORDERED: METOPROLOL SUCC 25MG EXT REL TAB PO STA (13:26)
[2023-05-08] MEDS ORDERED: SODIUM CHLORIDE 0.9% 1000ML 500 ML IV ONE (13:26)
--- NOTE | 2023-05-08 13:31 | Emergency Department Note ---
History of Present Illness General Chief complaint: Urinary Symptoms Stated complaint: HIGH FEVER, URINARY SYMPTOMS Time Seen by Provider: 05/08/23 10:15 History of Present Illness Provider complaint: Fever dysuria Onset (ago): month(s) 1 Associated symptoms: + confusion and + fever/chills 77-year-old female presents emergency department for fever and dysuria. is at bedside stating that patient has had fevers on and off for the last month. She reports he has been having dysuria for the last month. He reports she is becoming increasingly confused. No falls. No nausea or vomiting. No hematuria. Home Medications Medication Instructions Recorded Confirmed Type duloxetine 30 mg capsule,delayed 60 mg PO QAM 07/20/18 05/08/23 History release folic acid 1 mg tablet 1 mg PO QAM 07/20/18 05/08/23 History prednisone 5 mg tablet 5 mg PO QAM 07/20/18 05/08/23 History albuterol sulfate 90 mcg/actuation 2 puff inhalation Q4 PRN Shortness 03/07/19 05/08/23 History aerosol inhaler (ProAir HFA) Of Breath cyanocobalamin (vitamin B-12) 2,000 mcg PO 3XWK 03/07/19 05/08/23 History 1,000 mcg tablet (Vitamin B-12) vit A 300 mcg-C 200 mg-E 27 1 tab PO QDL 03/07/19 05/08/23 History mg-lutein 2 mg and minerals tablet (Ocuvite with Lutein) [id number] 8 mg-folic 400 1 tab PO QDL 11/12/19 05/08/23 History mcg-K 50 mcg-lutein 300 mcg tablet (Centrum Silver Women) montelukast 10 mg tablet 10 mg PO HS 11/15/20 05/08/23 History latanoprost 0.005 % eye drops 1 drp OPB HS 01/03/21 05/08/23 History solifenacin 10 mg tablet (Vesicare) 10 mg PO QDL 08/22/21 05/08/23 History acetaminophen 325 mg tablet 325 mg PO BID PRN Pain 03/21/22 05/08/23 History fluticasone furoate 200 1 inh inhalation DAILY 03/21/22 05/08/23 History mcg-vilanterol 25 mcg/dose inhalation powder (Breo Ellipta) thiamine HCl (vitamin B1) 100 mg 50 mg PO DAILY 03/21/22 05/08/23 History tablet vancomycin 125 mg capsule 125 mg PO Q6H 03/21/22 05/08/23 History clopidogrel 75 mg tablet 75 mg PO QAM #30 tabs 04/01/22 05/08/23 Rx magnesium oxide 400 mg (241.3 mg 400 mg PO BID #60 tabs 04/01/22 05/08/23 Rx magnesium) tablet Lactobacillus rhamnosus GG 5 5 cell PO BID 08/06/22 05/08/23 History billion cell oral powder packet ([employer] Probiotics) albuterol sulfate 2.5 mg/3 mL 2.5 mg inhalation DIRECTED PRN 08/06/22 05/08/23 History (0.083 %) solution for nebulization Shortness Of Breath Or Wheezing amlodipine 10 mg tablet 10 mg PO QAM 08/06/22 05/08/23 History betamethasone dipropionate 0.05 % 1 applic topical BID PRN AFFECTED 08/06/22 05/08/23 History topical cream AREA cholecalciferol (vitamin D3) 50 50 mcg PO QAM 08/06/22 05/08/23 History mcg (2,000 unit) capsule (Vitamin D3) ferrous sulfate 325 mg (65 mg 325 mg PO QAM 08/06/22 05/08/23 History iron) tablet levalbuterol HCl 1.25 mg/3 mL 1.25 mg inhalation Q4H PRN 08/06/22 05/08/23 History solution for nebulization (Xopenex) SOB/COUGH/WHEEZING menthol 0.44 %-zinc oxide 20.6 % 1 applic topical BID PRN AFFECTED 08/06/22 05/08/23 History topical ointment (Calmoseptine) AREA pantoprazole 40 mg tablet,delayed 40 mg PO QAM 08/06/22 05/08/23 History release (Protonix) triamcinolone acetonide 0.1 % 1 applic topical BID PRN AFFECTED 08/06/22 05/08/23 History topical cream AREA hydroxychloroquine 200 mg tablet 200 mg PO HS 30 days #30 tabs 08/31/22 05/08/23 Rx metoprolol succinate 25 mg 25 mg PO DAILY 05/08/23 05/08/23 History tablet,extended release 24 hr rosuvastatin 10 mg tablet 20 mg PO HS 05/08/23 05/08/23 History Allergies Allergy/AdvReac Type Severity Reaction Status Date / Time Influenza Virus Vaccines Allergy Severe FLOWN TO Verified 05/08/23 11:44 [facility]. methotrexate Allergy Intermediate RASH/PNEUMO Verified 05/08/23 11:44 N[facility] Penicillins Allergy Intermediate hives Verified 05/08/23 11:44 ranitidine Allergy Intermediate rash Verified 05/08/23 11:44 [facility] AdvReac Severe CAUSE Uncoded 05/08/23 11:44 BREATHING ISSUES Past Med/Surg History Medical History Abnormal ECG Acute hyponatremia Asthma inhalers prn Chronic steroid use prednisone daily CKD (chronic kidney disease), stage III CKD (chronic kidney disease), stage III COPD (chronic obstructive pulmonary disease) inhalers prn Depression DJD of right shoulder DM type 2 (diabetes mellitus, type 2) DVT prophylaxis Dyslipidemia Elevated troponin Gastroparesis GERD (gastroesophageal reflux disease) Glaucoma Gout H/O interstitial lung disease "drug induced- methotrexate " Heart disease History of stroke HTN (hypertension) Hyponatremia Hyponatremia Immunosuppressed status Migraines Nontraumatic rectus hematoma NSTEMI (non-ST elevated myocardial infarction) (08/06/13) NSTEMI (non-ST elevated myocardial infarction) NSTEMI (non-ST elevated myocardial infarction) Osteoarthritis Peripheral neuropathy Recurrent Clostridium difficile diarrhea Rheumatoid arthritis "on chronic steroids" RSV infection Syncope Thrush, oral UTI (urinary tract infection) Visual hallucinations Wrist fracture, left Surgical History H/O cardiac catheterization "cath 07/2013- single vessel CAD involving apical segment LAD, medical management indicated" H/O colonoscopy History of esophagogastroduodenoscopy (EGD) History of hysterectomy History of tooth extraction all top teeth S/P removal of ovarian cyst S/P rotator cuff repair "right shoulder" S/P total knee arthroplasty "left knee" Family History Father Family history of diabetes mellitus Mother Heart disease Hypertension Other No family history of adverse response to anesthesia Social History Smoking Status: Never smoker Second Hand Exposure: No; Do You Dip or Chew Tobacco: No; Hx Alcohol Use: No Hx Substance Use: No Preferred Language: Spanish Communication Ability: Effective Flamer After Lasting Required: No Beliefs That Will Affect Care: None marital status: Current Living Situation: Spouse current occupational status: retired current occupation: Former [employer] Feels Safe at Home: Yes Assistive Devices: Bedside Commode, Walker and Wheelchair Physical Exam Vital Signs Vital Signs - 24 hr 05/08/23 10:03 05/08/23 10:46 05/08/23 10:48 Temperature 36.7 C Temperature Source Temporal Artery Scan Pulse Rate 101 H Pulse Rate [Apical] 100 H Respiratory Rate 16 20 Blood Pressure 122/70 Blood Pressure [Left Arm] 158/90 H Blood Pressure Mean 87 Blood Pressure Mean [Left Arm] 112 Pulse Oximetry 96 98 95 Oxygen Delivery Method Room Air Room Air Sepsis Recent Fever Within 48 Hours No Sepsis New/Unexplained Change in Mental Status N/A Sepsis Action Taken by Nursing No Action Required 05/08/23 10:58 05/08/23 11:06 05/08/23 11:21 Temperature Temperature Source Pulse Rate 105 H Pulse Rate [Apical] 107 H 106 H Respiratory Rate 18 18 Blood Pressure Blood Pressure [Left Arm] Blood Pressure Mean Blood Pressure Mean [Left Arm] Pulse Oximetry 98 96 Oxygen Delivery Method Room Air Room Air Sepsis Recent Fever Within 48 Hours Sepsis New/Unexplained Change in Mental Status Sepsis Action Taken by Nursing 05/08/23 11:36 05/08/23 11:45 Temperature Temperature Source Pulse Rate Pulse Rate [Apical] 102 H 105 H Respiratory Rate 20 18 Blood Pressure Blood Pressure [Left Arm] Blood Pressure Mean Blood Pressure Mean [Left Arm] Pulse Oximetry 97 97 Oxygen Delivery Method Room Air Room Air Sepsis Recent Fever Within 48 Hours Sepsis New/Unexplained Change in Mental Status Sepsis Action Taken by Nursing Physical Exam HENT: Exam performed. -Head: Normocephalic and atraumatic. -Right Ear: External ear normal. No mastoid erythema -Left Ear: External ear normal. No mastoid erythema -Mouth/Throat: The oropharynx is clear and moist. No trismus in the jaw. No dental abscesses or uvula swelling. No oropharyngeal exudate or tonsillar abscesses. EYES: Conjunctivae and EOM are normal. Pupils are equal, round, and reactive to light. Right eye exhibits no discharge. Left eye exhibits no discharge. No scleral icterus. NECK: Normal range of motion. Neck supple. No JVD present. No tracheal deviation and normal range of motion present. CV: Normal rate, regular rhythm, normal heart sounds and intact distal pulses. There is no peripheral edema. Palpable radial pulses bue. PULM/CHEST: Effort normal and breath sounds normal. No respiratory distress. No stridor. She has no wheezes. She has no rales. ABD: The abdomen is soft. There is no tenderness. There is no rebound, no guarding. MUSC/SKEL: Normal range of motion. There is no peripheral edema, tenderness or deformity. NEURO: She is alert and oriented to person, place, not to time. She has normal strength. No cranial nerve deficit or sensory deficit. Course Course 1015: The patient was evaluated in room A9. A complete history and physical exam was performed Medical Decision Making Medical Records Attestation: I reviewed the patient's medical records. External medical records reviewed. Patient had a urine culture from July 2022 which was positive for VRE. Laboratory Data Attestation: I reviewed the patient's lab results. 05/08/23 10:23 05/08/23 10:23 Lab Results 05/08/23 05/08/23 05/08/23 Range/Units 10:23 10:23 10:23 WBC 3.83 L (4.8-10.8) K/ul RBC 4.89 (4.20-5.40) M/uL Hgb 14.0 (12.0-16.0) g/dl Hct 39.9 (37.0-47.0) % MCV 81.6 (80.0-100.0) fL MCH 28.6 (25.0-34.0) pg MCHC 35.1 (32.0-36.0) g/dL RDW Std Deviation 47.6 H (36.4-46.3) fL RDW Coeff of Xochitl 15.9 H (11.5-14.5) % Plt Count 169 (130-400) K/uL MPV 8.8 L (9.4-12.4) fL Immature Gran % (Auto) 0.0 % Neut % (Auto) 9.1 % Lymph % (Auto) 77.8 % Sac % (Auto) 12.3 % Eos % (Auto) 0.3 % Baso % (Auto) 0.5 % Neut # (Auto) 0.35 L* (1.40-6.50) K/uL Lymph # (Auto) 2.98 (1.20-3.40) K/uL Sac # (Auto) 0.47 (0.11-0.59) K/uL Eos # (Auto) 0.01 (0.00-0.50) K/uL Baso # (Auto) 0.02 (0.00-0.20) K/uL Immature Gran # (Auto) 0.00 L (0.01-0.20) K/uL PT 10.7 (9.0-12.0) Seconds INR 1.0 (0.9-1.1) APTT 29.1 (21.0-31.0) Seconds PTT Ratio 1.0 Sodium 129 L (136-145) mmol/L Potassium 4.4 (3.5-5.1) mmol/L Chloride 93 L (98-107) mmol/L Carbon Dioxide 27 (21-32) mmol/L Anion Gap 9 (3-11) BUN 14 (6-23) mg/dl Creatinine 1.30 H (0.6-1.2) mg/dl Est Cr Clr Drug Dosing Not Reportable Est GFR ( Amer) 46.5 ml/min Est GFR (Non-Af Amer) 40.1 ml/min BUN/Creatinine Ratio 10.8 (10-20) Glucose 204 H (70-99(Fasting)) mg/dl POC Glucose (70-99) mg/dl Osmolality (280-300) mOsm/kg Lactate (0.4-2.0) mmol/L Calcium 10.0 (8.6-10.3) mg/dl Magnesium 1.8 (1.7-2.4) mg/dl Total Bilirubin 0.8 (0.2-1.0) mg/dl Direct Bilirubin 0.1 (0-0.2) mg/dl AST 48 H (13-39) U/L ALT 36 (7-52) U/L Alkaline Phosphatase 119 H (34-104) U/L Ammonia (18-72) umol/L Troponin I High Sens 17.9 H (0-14) pg/ml Total Protein 7.7 (6.0-8.3) gm/dl Albumin 4.0 (3.4-5.0) gm/dl Procalcitonin (0-0.5) ng/ml Urine Color Urine Appearance (Clear) Urine pH (4.5-7.5) Ur Specific [place] (1.000-1.030) Urine Protein (Negative) Urine Glucose (UA) (Negative) Urine Ketones (Negative) Urine Blood (Negative) Urine Nitrite (Negative) Urine Bilirubin (Negative) Urine Urobilinogen (Negative) Ur Leukocyte Esterase (Negative) Urine WBC (Auto) (0-5) /hpf Urine RBC (Auto) (0-4) /hpf U Hyaline Cast (Auto) (0-5) /lpf U Epithel Cells (Auto) (0-5) /lpf Urine Bacteria (Auto) (Negative) SARS-CoV-2 (PCR) (Negative) Influenza Type A (PCR) (Neg) Influenza Type B (PCR) (Neg) RSV (RT-PCR) (Neg) 05/08/23 05/08/23 05/08/23 Range/Units 10:23 10:23 10:23 WBC (4.8-10.8) K/ul RBC (4.20-5.40) M/uL Hgb (12.0-16.0) g/dl Hct (37.0-47.0) % MCV (80.0-100.0) fL MCH (25.0-34.0) pg MCHC (32.0-36.0) g/dL RDW Std Deviation (36.4-46.3) fL RDW Coeff of Xochitl (11.5-14.5) % Plt Count (130-400) K/uL MPV (9.4-12.4) fL Immature Gran % (Auto) % Neut % (Auto) % Lymph % (Auto) % Sac % (Auto) % Eos % (Auto) % Baso % (Auto) % Neut # (Auto) (1.40-6.50) K/uL Lymph # (Auto) (1.20-3.40) K/uL Sac # (Auto) (0.11-0.59) K/uL Eos # (Auto) (0.00-0.50) K/uL Baso # (Auto) (0.00-0.20) K/uL Immature Gran # (Auto) (0.01-0.20) K/uL PT (9.0-12.0) Seconds INR (0.9-1.1) APTT (21.0-31.0) Seconds PTT Ratio Sodium (136-145) mmol/L Potassium (3.5-5.1) mmol/L Chloride (98-107) mmol/L Carbon Dioxide (21-32) mmol/L Anion Gap (3-11) BUN (6-23) mg/dl Creatinine (0.6-1.2) mg/dl Est Cr Clr Drug Dosing Est GFR ( Amer) ml/min Est GFR (Non-Af Amer) ml/min BUN/Creatinine Ratio (10-20) Glucose (70-99(Fasting)) mg/dl POC Glucose (70-99) mg/dl Osmolality (280-300) mOsm/kg Lactate 1.8 (0.4-2.0) mmol/L Calcium (8.6-10.3) mg/dl Magnesium (1.7-2.4) mg/dl Total Bilirubin (0.2-1.0) mg/dl Direct Bilirubin (0-0.2) mg/dl AST (13-39) U/L ALT (7-52) U/L Alkaline Phosphatase (34-104) U/L Ammonia 21.0 (18-72) umol/L Troponin I High Sens (0-14) pg/ml Total Protein (6.0-8.3) gm/dl Albumin (3.4-5.0) gm/dl Procalcitonin 0.20 (0-0.5) ng/ml Urine Color Urine Appearance (Clear) Urine pH (4.5-7.5) Ur Specific [place] (1.000-1.030) Urine Protein (Negative) Urine Glucose (UA) (Negative) Urine Ketones (Negative) Urine Blood (Negative) Urine Nitrite (Negative) Urine Bilirubin (Negative) Urine Urobilinogen (Negative) Ur Leukocyte Esterase (Negative) Urine WBC (Auto) (0-5) /hpf Urine RBC (Auto) (0-4) /hpf U Hyaline Cast (Auto) (0-5) /lpf U Epithel Cells (Auto) (0-5) /lpf Urine Bacteria (Auto) (Negative) SARS-CoV-2 (PCR) (Negative) Influenza Type A (PCR) (Neg) Influenza Type B (PCR) (Neg) RSV (RT-PCR) (Neg) 05/08/23 05/08/23 05/08/23 Range/Units 10:23 10:28 10:30 WBC (4.8-10.8) K/ul RBC (4.20-5.40) M/uL Hgb (12.0-16.0) g/dl Hct (37.0-47.0) % MCV (80.0-100.0) fL MCH (25.0-34.0) pg MCHC (32.0-36.0) g/dL RDW Std Deviation (36.4-46.3) fL RDW Coeff of Xochitl (11.5-14.5) % Plt Count (130-400) K/uL MPV (9.4-12.4) fL Immature Gran % (Auto) % Neut % (Auto) % Lymph % (Auto) % Sac % (Auto) % Eos % (Auto) % Baso % (Auto) % Neut # (Auto) (1.40-6.50) K/uL Lymph # (Auto) (1.20-3.40) K/uL Sac # (Auto) (0.11-0.59) K/uL Eos # (Auto) (0.00-0.50) K/uL Baso # (Auto) (0.00-0.20) K/uL Immature Gran # (Auto) (0.01-0.20) K/uL PT (9.0-12.0) Seconds INR (0.9-1.1) APTT (21.0-31.0) Seconds PTT Ratio Sodium (136-145) mmol/L Potassium (3.5-5.1) mmol/L Chloride (98-107) mmol/L Carbon Dioxide (21-32) mmol/L Anion Gap (3-11) BUN (6-23) mg/dl Creatinine (0.6-1.2) mg/dl Est Cr Clr Drug Dosing Est GFR ( Amer) ml/min Est GFR (Non-Af Amer) ml/min BUN/Creatinine Ratio (10-20) Glucose (70-99(Fasting)) mg/dl POC Glucose 222 H (70-99) mg/dl Osmolality 277 L (280-300) mOsm/kg Lactate (0.4-2.0) mmol/L Calcium (8.6-10.3) mg/dl Magnesium (1.7-2.4) mg/dl Total Bilirubin (0.2-1.0) mg/dl Direct Bilirubin (0-0.2) mg/dl AST (13-39) U/L ALT (7-52) U/L Alkaline Phosphatase (34-104) U/L Ammonia (18-72) umol/L Troponin I High Sens (0-14) pg/ml Total Protein (6.0-8.3) gm/dl Albumin (3.4-5.0) gm/dl Procalcitonin (0-0.5) ng/ml Urine Color Urine Appearance (Clear) Urine pH (4.5-7.5) Ur Specific [place] (1.000-1.030) Urine Protein (Negative) Urine Glucose (UA) (Negative) Urine Ketones (Negative) Urine Blood (Negative) Urine Nitrite (Negative) Urine Bilirubin (Negative) Urine Urobilinogen (Negative) Ur Leukocyte Esterase (Negative) Urine WBC (Auto) (0-5) /hpf Urine RBC (Auto) (0-4) /hpf U Hyaline Cast (Auto) (0-5) /lpf U Epithel Cells (Auto) (0-5) /lpf Urine Bacteria (Auto) (Negative) SARS-CoV-2 (PCR) NEGATIVE (Negative) Influenza Type A (PCR) Negative (Neg) Influenza Type B (PCR) Negative (Neg) RSV (RT-PCR) Negative (Neg) 05/08/23 Range/Units 10:40 WBC (4.8-10.8) K/ul RBC (4.20-5.40) M/uL Hgb (12.0-16.0) g/dl Hct (37.0-47.0) % MCV (80.0-100.0) fL MCH (25.0-34.0) pg MCHC (32.0-36.0) g/dL RDW Std Deviation (36.4-46.3) fL RDW Coeff of Xochitl (11.5-14.5) % Plt Count (130-400) K/uL MPV (9.4-12.4) fL Immature Gran % (Auto) % Neut % (Auto) % Lymph % (Auto) % Sac % (Auto) % Eos % (Auto) % Baso % (Auto) % Neut # (Auto) (1.40-6.50) K/uL Lymph # (Auto) (1.20-3.40) K/uL Sac # (Auto) (0.11-0.59) K/uL Eos # (Auto) (0.00-0.50) K/uL Baso # (Auto) (0.00-0.20) K/uL Immature Gran # (Auto) (0.01-0.20) K/uL PT (9.0-12.0) Seconds INR (0.9-1.1) APTT (21.0-31.0) Seconds PTT Ratio Sodium (136-145) mmol/L Potassium (3.5-5.1) mmol/L Chloride (98-107) mmol/L Carbon Dioxide (21-32) mmol/L Anion Gap (3-11) BUN (6-23) mg/dl Creatinine (0.6-1.2) mg/dl Est Cr Clr Drug Dosing Est GFR ( Amer) ml/min Est GFR (Non-Af Amer) ml/min BUN/Creatinine Ratio (10-20) Glucose (70-99(Fasting)) mg/dl POC Glucose (70-99) mg/dl Osmolality (280-300) mOsm/kg Lactate (0.4-2.0) mmol/L Calcium (8.6-10.3) mg/dl Magnesium (1.7-2.4) mg/dl Total Bilirubin (0.2-1.0) mg/dl Direct Bilirubin (0-0.2) mg/dl AST (13-39) U/L ALT (7-52) U/L Alkaline Phosphatase (34-104) U/L Ammonia (18-72) umol/L Troponin I High Sens (0-14) pg/ml Total Protein (6.0-8.3) gm/dl Albumin (3.4-5.0) gm/dl Procalcitonin (0-0.5) ng/ml Urine Color Yellow Urine Appearance Cloudy A (Clear) Urine pH 6.5 (4.5-7.5) Ur Specific [place] 1.017 (1.000-1.030) Urine Protein 2+ H (Negative) Urine Glucose (UA) Negative (Negative) Urine Ketones Trace H (Negative) Urine Blood Negative (Negative) Urine Nitrite Negative (Negative) Urine Bilirubin Negative (Negative) Urine Urobilinogen Negative (Negative) Ur Leukocyte Esterase Negative (Negative) Urine WBC (Auto) 5-10 H (0-5) /hpf Urine RBC (Auto) 0-4 (0-4) /hpf U Hyaline Cast (Auto) 1-5 (0-5) /lpf U Epithel Cells (Auto) 20-30 H (0-5) /lpf Urine Bacteria (Auto) 4+ H (Negative) SARS-CoV-2 (PCR) (Negative) Influenza Type A (PCR) (Neg) Influenza Type B (PCR) (Neg) RSV (RT-PCR) (Neg) Imaging Data Attestation: I personally reviewed and interpreted this imaging study as follows: My Impression: Chest x-ray negative. Airway clear. No pneumothorax. No consolidation. No cardiomegaly or cephalization.. No free air under the diaphragm. No fractures of the skeletal structures. Radiologist's Impression: Head CT 05/08/23 10:20 CT head/brain wo con CLINICAL HISTORY: 77 years-old Female with ams. Acutely altered mental status TECHNIQUE: Multiple axial CT images of the head were obtained without contrast. A dose lowering technique was utilized adhering to the principles of ALARA. CT DOSE: 625.80 mGy.cm COMPARISON: 08/18/2022 FINDINGS: No acute intracranial hemorrhage, midline shift, intracranial mass, hydrocephalus, territorial ischemia or abnormal extra-axial collection. Involutional changes with chronic microvascular ischemic disease. The calvarium is intact. Small left mastoid effusion. The paranasal sinuses are generally clear. Unremarkable soft tissues. Prior bilateral lens repair. IMPRESSION: No acute intracranial abnormality. ACT 112: Negative or not required by law. The above report was generated using voice recognition software. It may contain grammatical, syntax or spelling errors. Electronically signed by: Brant Mccoy M.D. 05/08/2023 10:58 AM Chest X-Ray 05/08/23 10:21 XR chest 1V portable CLINICAL HISTORY: Sepsis TECHNIQUE: Single frontal radiograph of the chest was obtained. Comparison: Comparison is made to chest radiograph 08/23/2022 FINDINGS: Right reverse shoulder arthroplasty is seen. The cardiomediastinal silhouette is normal. The lungs are clear. No evidence of pleural effusion or pneumothorax. IMPRESSION: No acute abnormalities and in particular no radiographic evidence of pneumonia. ACT 112: Negative or not required by law. Electronically signed by: Jose Morton M.D. 05/08/2023 10:44 AM ECG Data Attestation: I personally reviewed and interpreted this ECG as follows: Rate (beats per minute): 103 Rhythm: + normal sinus ECG Intervals/blocks: + First degree AV block, + Right Bundle branch block, + Normal QRS and + Normal QT-c ECG ST segments: + Normal ST segments MDM Narrative Cardiac monitoring: An order was placed for continuous cardiac monitoring. The monitor shows a rate of 100 with sinus rhythm interpreted by me Vital signs stable. Labs show leukopenia of 3.83 absolute neutrophil count of 0.35 sodium 129 lactic acid within normal limits troponin elevated at 17.9 patient not reporting any chest pain. Urinalysis shows 4+ bacteria. CT of the head and chest x-ray within normal limits. Patient was treated with cefepime and daptomycin given the history of VRE. [facility] Impression & Plan Acute UTI, Fever and neutropenia Discharge Plan Visit Data Chief Complaint: Urinary Symptoms Stated Complaint: HIGH FEVER, URINARY SYMPTOMS ED Provider: Jose Walker Discharge Problem: Acute UTI, Fever and neutropenia Patient Disposition: Admitted As Inpatient Forms Stand Alone Forms: [facility] Prescriptions Prescriptions: No Action latanoprost 0.005 % drops 1 drp OPB HS cyanocobalamin (vitamin B-12) [Vitamin B-12] 1,000 mcg Tablet 2,000 mcg PO 3XWK Rx Instructions: mon, wed, fri albuterol sulfate [ProAir HFA] 90 mcg/actuation Hfa Aerosol Inhaler 2 puff INHALATION Q4 PRN (Reason: Shortness Of Breath) Ocuvite with Lutein 1,000 unit-200 mg-60 unit-2 mg Tablet 1 tab PO QDL prednisone 5 mg tablet 5 mg PO QAM folic acid 1 mg tablet 1 mg PO QAM duloxetine 30 mg capsule,delayed release(DR/EC) 60 mg PO QAM Centrum Silver Women 8 mg iron-400 mcg-300 mcg Tablet 1 tab PO QDL montelukast 10 mg Tablet 10 mg PO HS vancomycin 125 mg capsule 125 mg PO Q6H thiamine HCl (vitamin B1) 100 mg tablet 50 mg PO DAILY acetaminophen 325 mg Tablet 325 mg PO BID PRN (Reason: Pain) fluticasone furoate-vilanterol [Breo Ellipta] 200-25 mcg/dose blister with device 1 inh INHALATION DAILY clopidogrel 75 mg Tablet 75 mg PO QAM Qty: 30 0RF magnesium oxide 400 mg (241.3 mg magnesium) Tablet 400 mg PO BID Qty: 60 0RF albuterol sulfate 2.5 mg /3 mL (0.083 %) Solution For Nebulization 2.5 mg INHALATION DIRECTED PRN (Reason: Shortness Of Breath Or Wheezing) triamcinolone acetonide 0.1 % Cream 1 applic TOPICAL BID PRN (Reason: AFFECTED AREA) betamethasone dipropionate 0.05 % Cream 1 applic TOPICAL BID PRN (Reason: AFFECTED AREA) levalbuterol HCl [Xopenex] 1.25 mg/3 mL Solution For Nebulization 1.25 mg INHALATION Q4H PRN (Reason: SOB/COUGH/WHEEZING) menthol-zinc oxide [Calmoseptine] 0.44-20.6 % Ointment 1 applic TOPICAL BID PRN (Reason: AFFECTED AREA) [employer]lle Kids Probiotics 5 billion cell Powder In Packet 5 cell PO BID ferrous sulfate 325 mg (65 mg iron) Tablet 325 mg PO QAM cholecalciferol (vitamin D3) [Vitamin D3] 50 mcg (2,000 unit) Capsule 50 mcg PO QAM amlodipine 10 mg tablet 10 mg PO QAM pantoprazole [Protonix] 40 mg Tablet,Delayed Release (Dr/Ec) 40 mg PO QAM hydroxychloroquine 200 mg Tablet 200 mg PO HS 30 Days Qty: 30 2RF solifenacin [Vesicare] 10 mg tablet 10 mg PO QDL rosuvastatin 10 mg tablet 20 mg PO HS metoprolol succinate 25 mg tablet extended release 24 hr 25 mg PO DAILY Referrals Referrals: Leni Moyer DO [Primary Care Provider] -
[2023-05-08] MEDS ORDERED: AZITHROMYCIN 250 MG TAB PO ONE (13:46)
[2023-05-08] MEDS ORDERED: CARBOHYDRATES FOR HYPOGLYCEMIA PO PRN (15:13)
[2023-05-08] MEDS ORDERED: DEXTROSE 50% 50 ML SYRINGE IV PRN (15:13)
[2023-05-08] MEDS ORDERED: ONDANSETRON INJ 2 MG/ML 2 ML VIAL IV PRN (15:13)
[2023-05-08] MEDS ORDERED: MENTHOL-ZINC OXIDE 360 APPLN/120 GM TUBE EXT PRN (15:13)
[2023-05-08] MEDS ORDERED: MAGNESIUM HYDROXIDE SUSP 30 ML UDC PO PRN (15:13)
[2023-05-08] MEDS ORDERED: GLUCOSE 10 TAB/TUBE PO PRN (15:13)
[2023-05-08] MEDS ORDERED: SODIUM CHLORIDE 0.9% 1000ML 1,000 ML IV SCH (15:13)
[2023-05-08] MEDS ORDERED: ALUMINUM/MAGNESIUM SUSP 30 ML UDC PO PRN (15:13)
[2023-05-08] MEDS ORDERED: ALBUT/IPRATROP 3MG/0.5MG NEB 3 ML VIAL NEB PRN (15:13)
[2023-05-08] MEDS ORDERED: GLUCAGON FOR INJ 1 MG VIAL SQ PRN (15:13)
[2023-05-08] MEDS ORDERED: GLUCOSE 40% GEL 15 GM TUBE PO PRN (15:13)
[2023-05-08] MEDS ORDERED: ACETAMINOPHEN 325 MG TAB PO PRN (15:13)
[2023-05-08] MEDS ORDERED: POLYETHYLENE (MIRALAX) 17 GM PACK PO PRN (15:13)
--- NOTE | 2023-05-08 16:38 | Electrocardiogram Report ---
Test Reason : Blood Pressure : / mmHG Vent. Rate : 103 BPM Atrial Rate : 103 BPM P-R Int : 236 ms QRS Dur : 116 ms QT Int : 322 ms P-R-T Axes : 005 086 -03 degrees QTc Int : 421 ms Sinus tachycardia with 1st degree A-V block with Premature atrial complexes Low voltage QRS Right bundle branch block T wave abnormality, consider inferior ischemia Abnormal ECG When compared with ECG of 22-AUG-2022 11:06, Premature atrial complexes are now Present [place] interval has increased Confirmed by Bob Liu ([id number]) on 05/08/2023 4:38:30 PM Referred By: REFERRED SELF Confirmed By:Bob Liu
[2023-05-08] MEDS: CYANOCOBALAMIN (B-12) 500 MCG TABLET PO SCH (16:51)
[2023-05-08] MEDS: INSULIN ASPART PER UNIT CHARGE SC SCH ×2 (16:52→20:22)
[2023-05-08] MEDS: VANCOMYCIN HCL 125 MG/2.5ML SOLN PO SCH (17:07)
[2023-05-08] MEDS: RASPBERRY SYRUP 5 ML UDP PO SCH (17:07)
[2023-05-08] MEDS: MAGNESIUM OXIDE 400 MG TAB PO SCH (20:24)
[2023-05-08] MEDS: MONTELUKAST SODIUM 10 MG TABLET PO SCH (20:24)
[2023-05-08] MEDS: LATANOPROST 0.005% OP SOLN 2.5 ML BTL OPB SCH (20:26)
[2023-05-08] MEDS: MUPIROCIN 2% OINT 22 GM TUBE EXT SCH (20:26)
[2023-05-08] MEDS: MICONAZOLE NITRATE POWDER 85 GM EXT SCH (20:28)
[2023-05-08] MEDS: CEFEPIME 2,000 MG in SYRINGE 0 ML IV SCH (20:33)
[2023-05-08 21:50] LABS: BUN Creatinine Ratio 14.3 (10-20); Calcium 9.1 mg/dl (8.6-10.3); Creatinine Clr Calc Pharmacy 32.7 ml/min; Est GFR (African American) 51.7 ml/min; Est GFR (Non-African American) 44.6 ml/min; Potassium 3.8 mmol/L (3.5-5.1)
[2023-05-09] MEDS: VANCOMYCIN HCL 125 MG/2.5ML SOLN PO SCH ×4 (04:25→17:09)
[2023-05-09] MEDS: RASPBERRY SYRUP 5 ML UDP PO SCH ×4 (04:25→17:10)
[2023-05-09 06:26] LABS: Hematocrit (blood only) 32.7 % (37.0-47.0); Hemoglobin 11.4 g/dl (12.0-16.0); Mean Corpuscular Hemoglobin 28.1 pg (25.0-34.0); Mean Corpuscular Hgb Conc 34.9 g/dL (32.0-36.0); Mean Corpuscular Volume 80.7 fL (80.0-100.0); Mean Platelet Volume 8.6 fL (9.4-12.4); Platelet Count 140 K/uL (130-400); RDW Standard Deviation 47.1 fL (36.4-46.3); Red Blood Count 4.05 M/uL (4.20-5.40); White Blood Count 2.52 K/ul (4.8-10.8)
[2023-05-09 07:14] LABS: Albumin Globulin Ratio 1.1 (0.9-2); Albumin Level 3.2 gm/dl (3.4-5.0); BUN Creatinine Ratio 14.9 (10-20); Bilirubin,Total 0.6 mg/dl (0.2-1.0); Creatinine Clr Calc Pharmacy 38.6 ml/min; Est GFR (African American) 63.1 ml/min; Est GFR (Non-African American) 54.4 ml/min; Globulin 2.9 gm/dl (2.5-4.0); Magnesium 1.6 mg/dl (1.7-2.4); Potassium 3.7 mmol/L (3.5-5.1); Total Protein 6.1 gm/dl (6.0-8.3)
[2023-05-09 07:17] LABS: ALC (manual) 2.34 K/uL (1.2-3.4); ANC (manual) 0.05 K/uL (1.4-6.5); Eosinophils # (manual) 0.03 K/uL (0-0.50); Eosinophils % (manual) 1 %; Large Granular Lymph # (manua 1.59 K/uL; Large Granular Lymph % (manual) 63 %; Lymphocytes # (manual) 0.76 K/uL (1.2-3.4); Lymphocytes % (manual) 30 %; Monocytes % (manual) 4 %; Neutrophils # (manual) 0.05 K/uL (1.40-6.50); Neutrophils % (manual) 2 %
[2023-05-09] MEDS: ADVANCED PROBIOTIC 1250 MG CAPSULE PO SCH (08:46)
[2023-05-09] MEDS: FOLIC ACID 1 MG TAB PO SCH (08:46)
[2023-05-09] MEDS: THIAMINE HCL 50 MG TABLET PO SCH (08:46)
[2023-05-09] MEDS: AZITHROMYCIN 250 MG TAB PO SCH (08:46)
[2023-05-09] MEDS: MAGNESIUM OXIDE 400 MG TAB PO SCH ×2 (08:46→20:23)
[2023-05-09] MEDS: METOPROLOL SUCC 25MG EXT REL TAB PO SCH (08:46)
[2023-05-09] MEDS: predniSONE 5 MG TAB PO SCH (08:46)
[2023-05-09] MEDS: CHOLECALCIFEROL 1,000 UNITS 25 MCG TAB PO SCH (08:47)
[2023-05-09] MEDS: CLOPIDOGREL BISULFATE 75 MG TAB PO SCH (08:47)
[2023-05-09] MEDS: PANTOprazole 40 MG TAB PO SCH (08:47)
[2023-05-09] MEDS: DULoxetine HCL 60 MG CAP PO SCH (08:47)
[2023-05-09] MEDS: amLODIPine BESYLATE 5 MG TAB PO SCH (08:47)
[2023-05-09] MEDS: FERROUS SULFATE 325 MG TAB PO SCH (08:47)
[2023-05-09] MEDS: FLUTICASONE/VILANTEROL 200/25MCG 14 PUFFS/INHALER INH SCH (08:48)
[2023-05-09] MEDS: HEPARIN SOD 5,000 UNIT/0.5 ML VIAL SQ SCH ×2 (08:48→20:23)
[2023-05-09] MEDS: MICONAZOLE NITRATE POWDER 85 GM EXT SCH ×2 (08:49→20:23)
[2023-05-09] MEDS: MUPIROCIN 2% OINT 22 GM TUBE EXT SCH ×2 (08:49→20:21)
[2023-05-09] MEDS: LANTUS PER UNIT CHARGE SQ SCH (08:53)
[2023-05-09] MEDS: INSULIN ASPART PER UNIT CHARGE SC SCH ×4 (08:54→20:21)
[2023-05-09 09:53] LABS: Estimated Average Glucose 151 mg/dl; Hemoglobin A1C 6.9 % (4.5-5.6)
[2023-05-09] MEDS: CEFEPIME 2,000 MG in SYRINGE 0 ML IV SCH ×2 (10:47→22:12)
[2023-05-09] MEDS ORDERED: NON-FORMULARY MEDICATION (Vit A,C And E-Lutein-Minerals [Ocuvite With Lutein] 1,000 unit-2 PO SCH (11:30)
[2023-05-09] MEDS: CEROVITE ADV FORMULA TAB PO SCH (12:17)
[2023-05-09] MEDS: OXYBUTYNIN CHLORIDE XL 5 MG TABCR PO SCH (12:17)
--- NOTE | 2023-05-09 13:56 | Hospitalist Progress Note ---
Date of Service May 09, 2023 Assessment & Plan (1) Fever and neutropenia: (2) Acute UTI: (3) Cat scratch: (4) DM type 2 (diabetes mellitus, type 2): (5) Paroxysmal atrial fibrillation: (6) Hyponatremia: Plan per admitting service notes with addendum: This is a 77-year-old female who has significant past medical history of T2DM, HTN, HLD, interstitial lung disease, COPD, chronic right-sided heart failure, CAD, history of CVA, paroxysmal atrial fibrillation, GERD, osteoporosis, diabetic polyneuropathy, POA G, rheumatoid arthritis, history of C. difficile, depression and neutropenia who presents to ED secondary to complaint of Fever x1 month. Per CMS guidelines patient meets for sepsis criteria secondary to neutropenia, tachycardia and documented fever in outpatient setting. She was initially ordered to daptomycin and cefepime Urine and blood cultures were obtained Lactic acid was normal. Patient was tachycardic during my evaluation but blood pressure was elevated. Sepsis Metabolic encephalopathy Neutropenic fever Presumed UTI Cat scratch Dorsal aspect L wrist Admit to PCU Empirically cover with IV daptomycin, cefepime and oral azithromycin (cat scratch) Patient with previous history of VRE UTI, hence the daptomycin will hold patient's statin therapy Patient ordered 500 mL fluid bolus in ED We will continue maintenance fluids for additional liter until reevaluated in a.m. Await blood and urine cultures Lactic acid WNL, normotensive Consult wound nurse secondary to skin tear/cat scratch on dorsal aspect of left wrist - will place ointment bid for now, no drainage to culture 05/08 Clinically improving Mental status also improving No fever, heart rate improved Urine culture: Gram-negative bacilli Blood cultures: Pending Continue current antibiotic regimen Monitor closely CAD Chronic right-sided heart failure Elevated troponin Hypertension bp elevated, missed a.m. meds in setting of sepsis will give oral metoprolol today, but hold other BP meds unless pt becomes significantly hypertensive continue amlodipine, metoprolol in a.m. hold statin in setting of daptomycin use daily weights, pt euvolemic History of CVA continue plavix, statin on hold chronic stable PAF chronic, stable continue metoprolol not on OAC Diet-controlled T2DM with polyneuropathy chronic, stable last a1c 6.0 in december, will repeat in a.m. lantus/novolog per protocol CKD stage III chronic, stable cr at baseline, avoid nephrotoxic agents Acute hyponatremia na 129, serum osm, urine osm, urine na Sodium 132 Chronic C. difficile infection follows [facility] ID, stable continue oral vanco Rheumatoid arthritis Chronic prednisone therapy hold plaquenil during infectious work up Neutropenia has been worked up with BM bx and p. smear as OP needs to f/u with hematology as OP She has not followed up since biopsy in jul 05 COPD ILD continue home inhalers chronic, stable, no acute exac DVT prophylaxis: Heparin Full code PCP: João Dispo: Lives at home with her , will order PT and OT evaluation tomorrow when patient is stronger Admission and Anticipated Discharge Date Admission Date: May 08, 2023 Subjective ff up for UTI, etc. Seen resting in bed, sitting up Oriented x3 States that she feels better compared to yesterday Was confused last night but no confusion today No problems with urination, abdominal pain, nausea or vomiting No diarrhea Left wrist pain also improving No other new symptoms Review of Systems Review of Systems: all noted and negative except for above Physical Exam Physical Exam: General- oriented x 3, not in distress, speaks in sentences with no effort or accessory muscle use Eyes- anicteric Neck- no JVD Lungs- clear breath sounds bilaterally, no rales/wheezes Heart- normal rate, regular rhythm; no murmurs Abdomen- normal bowel sounds, nondistended, soft, nontender Extremities- no pretibial edema, no calf tenderness Left wrist wound: Healing well, no bleeding or discharge Neuro- alert, oriented x 3; no gross focal neurologic deficits Skin- warm & dry Results & Data Results & Data Vital Signs (Past 12 Hours) Vital Signs Temp Pulse Pulse Resp BP Pulse Ox O2 Del Method 05/09/23 11:16 37.5 C 90 19 110/76 93 Room Air 05/09/23 09:00 93 H 05/09/23 06:54 37 C 90 18 120/61 96 Room Air 05/09/23 02:35 36.7 C 80 18 119/89 95 Room Air 05/09/23 02:00 86 all noted and reviewed including below
[2023-05-09] MEDS ORDERED: DAPTOmycin 500 MG in SYRINGE 0 ML IV SCH (14:00)
[2023-05-09] MEDS: LATANOPROST 0.005% OP SOLN 2.5 ML BTL OPB SCH (20:22)
[2023-05-09] MEDS: MONTELUKAST SODIUM 10 MG TABLET PO SCH (20:23)
[2023-05-10] MEDS: RASPBERRY SYRUP 5 ML UDP PO SCH ×5 (00:36→23:49)
[2023-05-10] MEDS: VANCOMYCIN HCL 125 MG/2.5ML SOLN PO SCH ×5 (00:36→23:49)
[2023-05-10 06:45] LABS: Mean Corpuscular Hemoglobin 27.6 pg (25.0-34.0); Mean Corpuscular Hgb Conc 34.4 g/dL (32.0-36.0); Mean Corpuscular Volume 80.2 fL (80.0-100.0); Mean Platelet Volume 8.7 fL (9.4-12.4); Platelet Count 140 K/uL (130-400); RDW Coefficient of Variation 15.7 % (11.5-14.5); RDW Standard Deviation 45.9 fL (36.4-46.3); Red Blood Count 3.99 M/uL (4.20-5.40); White Blood Count 2.54 K/ul (4.8-10.8)
[2023-05-10 07:12] LABS: Albumin Globulin Ratio 1.1 (0.9-2); Albumin Level 3.2 gm/dl (3.4-5.0); BUN Creatinine Ratio 15.9 (10-20); Bilirubin,Total 0.6 mg/dl (0.2-1.0); Calcium 9.4 mg/dl (8.6-10.3); Creatinine Clr Calc Pharmacy 35.8 ml/min; Est GFR (African American) 58.8 ml/min; Est GFR (Non-African American) 50.7 ml/min; Magnesium 1.8 mg/dl (1.7-2.4); Potassium 3.5 mmol/L (3.5-5.1); Total Protein 6.2 gm/dl (6.0-8.3)
[2023-05-10 07:35] LABS: ALC (manual) 2.36 K/uL (1.2-3.4); ANC (manual) 0.05 K/uL (1.4-6.5); Basophils # (manual) 0.05 K/uL (0-0.2); Basophils % (manual) 2 %; Large Granular Lymph # (manua 1.52 K/uL; Large Granular Lymph % (manual) 60 %; Lymphocytes # (manual) 0.84 K/uL (1.2-3.4); Lymphocytes % (manual) 33 %; Monocytes # (manual) 0.08 K/uL (0.11-0.59); Monocytes % (manual) 3 %; Neutrophils # (manual) 0.05 K/uL (1.40-6.50); Neutrophils % (manual) 2 %; Polychromasia 1+
[2023-05-10] MEDS: MAGNESIUM OXIDE 400 MG TAB PO SCH ×2 (08:40→19:55)
[2023-05-10] MEDS: CLOPIDOGREL BISULFATE 75 MG TAB PO SCH (08:40)
[2023-05-10] MEDS: amLODIPine BESYLATE 5 MG TAB PO SCH (08:40)
[2023-05-10] MEDS: FOLIC ACID 1 MG TAB PO SCH (08:40)
[2023-05-10] MEDS: AZITHROMYCIN 250 MG TAB PO SCH (08:40)
[2023-05-10] MEDS: DULoxetine HCL 60 MG CAP PO SCH (08:40)
[2023-05-10] MEDS: PANTOprazole 40 MG TAB PO SCH (08:40)
[2023-05-10] MEDS: ADVANCED PROBIOTIC 1250 MG CAPSULE PO SCH (08:41)
[2023-05-10] MEDS: predniSONE 5 MG TAB PO SCH (08:41)
[2023-05-10] MEDS: FERROUS SULFATE 325 MG TAB PO SCH (08:41)
[2023-05-10] MEDS: THIAMINE HCL 50 MG TABLET PO SCH (08:41)
[2023-05-10] MEDS: CHOLECALCIFEROL 1,000 UNITS 25 MCG TAB PO SCH (08:41)
[2023-05-10] MEDS: METOPROLOL SUCC 25MG EXT REL TAB PO SCH (08:41)
[2023-05-10] MEDS: MUPIROCIN 2% OINT 22 GM TUBE EXT SCH ×2 (08:42→19:55)
[2023-05-10] MEDS: HEPARIN SOD 5,000 UNIT/0.5 ML VIAL SQ SCH ×2 (08:42→19:54)
[2023-05-10] MEDS: LANTUS PER UNIT CHARGE SQ SCH (08:42)
[2023-05-10] MEDS: MICONAZOLE NITRATE POWDER 85 GM EXT SCH ×2 (08:43→19:56)
[2023-05-10] MEDS: FLUTICASONE/VILANTEROL 200/25MCG 14 PUFFS/INHALER INH SCH (08:43)
[2023-05-10] MEDS: INSULIN ASPART PER UNIT CHARGE SC SCH ×4 (08:52→21:08)
[2023-05-10] MEDS: ERTAPENEM SODIUM 1,000 MG in SYRINGE 0 ML IV SCH (11:01)
[2023-05-10] MEDS: OXYBUTYNIN CHLORIDE XL 5 MG TABCR PO SCH (11:20)
[2023-05-10] MEDS: CEROVITE ADV FORMULA TAB PO SCH (11:20)
--- NOTE | 2023-05-10 17:37 | Hospitalist Progress Note ---
Date of Service May 10, 2023 Assessment & Plan (1) Fever and neutropenia: (2) Acute UTI: (3) Cat scratch: (4) DM type 2 (diabetes mellitus, type 2): (5) Paroxysmal atrial fibrillation: (6) Hyponatremia: Plan per admitting service notes with addendum: This is a 77-year-old female who has significant past medical history of T2DM, HTN, HLD, interstitial lung disease, COPD, chronic right-sided heart failure, CAD, history of CVA, paroxysmal atrial fibrillation, GERD, osteoporosis, diabetic polyneuropathy, POA G, rheumatoid arthritis, history of C. difficile, depression and neutropenia who presents to ED secondary to complaint of Fever x1 month. Per CMS guidelines patient meets for sepsis criteria secondary to neutropenia, tachycardia and documented fever in outpatient setting. She was initially ordered to daptomycin and cefepime Urine and blood cultures were obtained Lactic acid was normal. Patient was tachycardic during my evaluation but blood pressure was elevated. Sepsis Metabolic encephalopathy Neutropenic fever Presumed UTI Cat scratch Dorsal aspect L wrist Admit to PCU Empirically cover with IV daptomycin, cefepime and oral azithromycin (cat scratch) Patient with previous history of VRE UTI, hence the daptomycin will hold patient's statin therapy Patient ordered 500 mL fluid bolus in ED We will continue maintenance fluids for additional liter until reevaluated in a.m. Await blood and urine cultures Lactic acid WNL, normotensive Consult wound nurse secondary to skin tear/cat scratch on dorsal aspect of left wrist - will place ointment bid for now, no drainage to culture 05/10 Clinically improving Mental status back to baseline No fever, heart rate improved Urine culture: Klebsiella E coli Blood cultures: negative so far transitioned from Cefepime to Ertapenem Day #1 CAD Chronic right-sided heart failure Elevated troponin Hypertension bp elevated, missed a.m. meds in setting of sepsis will give oral metoprolol today, but hold other BP meds unless pt becomes significantly hypertensive continue amlodipine, metoprolol in a.m. hold statin in setting of daptomycin use daily weights, pt euvolemic 05/10 no cardiac symptoms patient euvolemic History of CVA continue plavix, statin on hold chronic stable PAF chronic, stable continue metoprolol not on OAC Diet-controlled T2DM with polyneuropathy chronic, stable last a1c 6.0 in december, will repeat in a.m. lantus/novolog per protocol CKD stage III chronic, stable cr at baseline, avoid nephrotoxic agents Acute hyponatremia na 129, serum osm, urine osm, urine na Sodium 132 Chronic C. difficile infection follows [facility] ID, stable continue oral vanco Rheumatoid arthritis Chronic prednisone therapy Plaquenil on hold Neutropenia has been worked up with BM bx and p. smear as OP needs to f/u with hematology as OP She has not followed up since biopsy in jul 05 COPD ILD continue home inhalers chronic, stable, no acute exac DVT prophylaxis: Heparin Full code PCP: João Dispo: lives at home with her Admission and Anticipated Discharge Date Admission Date: May 08, 2023 Subjective ff up for sepsis, uti, etc seen resting in bed, comfortable states she feels improved today less weak oriented x 3, no confusion denies abdominal pain , problems with urination no chest pain, dyspnea, abdominal pain, nausea/vomiting no other symptoms Review of Systems Review of Systems: all noted and negative except for above Physical Exam Physical Exam: General- oriented x 3, not in distress, speaks in sentences with no effort or accessory muscle use Eyes- anicteric Neck- no JVD Lungs- clear breath sounds bilaterally, no crackles or wheezing Heart- normal rate, regular rhythm; no murmurs Abdomen- normal bowel sounds, nondistended, soft, no tenderness Extremities- no pretibial edema, no calf tenderness L wrist wound: healing well, no bleeding or discharge Neuro- alert, oriented x 3; no gross focal neurologic deficits Skin- warm & dry Results & Data Results & Data Vital Signs (Past 12 Hours) Vital Signs Temp Pulse Pulse Resp BP Pulse Ox O2 Del Method 05/10/23 16:19 83 05/10/23 16:09 37.2 C 84 17 125/70 95 Room Air 05/10/23 11:31 36.8 C 77 18 140/62 97 Room Air 05/10/23 07:27 36.8 C 77 18 135/50 L 93 Room Air 05/10/23 07:20 75 all noted and reviewed including below
[2023-05-10] MEDS: LATANOPROST 0.005% OP SOLN 2.5 ML BTL OPB SCH (19:55)
[2023-05-10] MEDS: MONTELUKAST SODIUM 10 MG TABLET PO SCH (19:55)
[2023-05-11] MEDS: VANCOMYCIN HCL 125 MG/2.5ML SOLN PO SCH ×3 (06:24→16:43)
[2023-05-11] MEDS: RASPBERRY SYRUP 5 ML UDP PO SCH ×3 (06:24→16:43)
[2023-05-11] MEDS: FOLIC ACID 1 MG TAB PO SCH (08:55)
[2023-05-11] MEDS: AZITHROMYCIN 250 MG TAB PO SCH (08:55)
[2023-05-11] MEDS: MAGNESIUM OXIDE 400 MG TAB PO SCH ×2 (08:55→21:34)
[2023-05-11] MEDS: FLUTICASONE/VILANTEROL 200/25MCG 14 PUFFS/INHALER INH SCH (08:55)
[2023-05-11] MEDS: predniSONE 5 MG TAB PO SCH (08:56)
[2023-05-11] MEDS: ADVANCED PROBIOTIC 1250 MG CAPSULE PO SCH (08:56)
[2023-05-11] MEDS: CLOPIDOGREL BISULFATE 75 MG TAB PO SCH (08:56)
[2023-05-11] MEDS: CHOLECALCIFEROL 1,000 UNITS 25 MCG TAB PO SCH (08:56)
[2023-05-11] MEDS: DULoxetine HCL 60 MG CAP PO SCH (08:56)
[2023-05-11] MEDS: THIAMINE HCL 50 MG TABLET PO SCH (08:56)
[2023-05-11] MEDS: FERROUS SULFATE 325 MG TAB PO SCH (08:56)
[2023-05-11] MEDS: PANTOprazole 40 MG TAB PO SCH (08:56)
[2023-05-11] MEDS: METOPROLOL SUCC 25MG EXT REL TAB PO SCH (08:56)
[2023-05-11] MEDS: CYANOCOBALAMIN (B-12) 500 MCG TABLET PO SCH (08:57)
[2023-05-11] MEDS: amLODIPine BESYLATE 5 MG TAB PO SCH (08:57)
[2023-05-11] MEDS: MUPIROCIN 2% OINT 22 GM TUBE EXT SCH ×2 (08:58→21:32)
[2023-05-11] MEDS: HEPARIN SOD 5,000 UNIT/0.5 ML VIAL SQ SCH ×2 (08:58→21:35)
[2023-05-11] MEDS: MICONAZOLE NITRATE POWDER 85 GM EXT SCH ×2 (08:58→21:37)
[2023-05-11] MEDS: LANTUS PER UNIT CHARGE SQ SCH (08:59)
[2023-05-11] MEDS: INSULIN ASPART PER UNIT CHARGE SC SCH ×4 (09:00→21:36)
[2023-05-11] MEDS: ERTAPENEM SODIUM 1,000 MG in SYRINGE 0 ML IV SCH (09:13)
[2023-05-11] MEDS: OXYBUTYNIN CHLORIDE XL 5 MG TABCR PO SCH (11:56)
[2023-05-11] MEDS: CEROVITE ADV FORMULA TAB PO SCH (11:56)
--- NOTE | 2023-05-11 18:14 | Hospitalist Progress Note ---
Date of Service May 11, 2023 Assessment & Plan (1) Fever and neutropenia: (2) Acute UTI: (3) Cat scratch: (4) DM type 2 (diabetes mellitus, type 2): (5) Paroxysmal atrial fibrillation: (6) Hyponatremia: Plan per admitting service notes with addendum: This is a 77-year-old female who has significant past medical history of T2DM, HTN, HLD, interstitial lung disease, COPD, chronic right-sided heart failure, CAD, history of CVA, paroxysmal atrial fibrillation, GERD, osteoporosis, diabetic polyneuropathy, POA G, rheumatoid arthritis, history of C. difficile, depression and neutropenia who presents to ED secondary to complaint of Fever x1 month. Per CMS guidelines patient meets for sepsis criteria secondary to neutropenia, tachycardia and documented fever in outpatient setting. She was initially ordered to daptomycin and cefepime Urine and blood cultures were obtained Lactic acid was normal. Patient was tachycardic during my evaluation but blood pressure was elevated. Sepsis Metabolic encephalopathy Neutropenic fever Presumed UTI Cat scratch Dorsal aspect L wrist Admit to PCU Empirically cover with IV daptomycin, cefepime and oral azithromycin (cat scratch) Patient with previous history of VRE UTI, hence the daptomycin will hold patient's statin therapy Patient ordered 500 mL fluid bolus in ED We will continue maintenance fluids for additional liter until reevaluated in a.m. Await blood and urine cultures Lactic acid WNL, normotensive Consult wound nurse secondary to skin tear/cat scratch on dorsal aspect of left wrist - will place ointment bid for now, no drainage to culture 05/11 Clinically improving Mental status back to baseline No fever, heart rate improved Urine culture: Klebsiella E coli Blood cultures: negative x 48 hours transitioned from Cefepime to Ertapenem Day #2 ID service consulted CAD Chronic right-sided heart failure Elevated troponin Hypertension in setting of sepsis will give oral metoprolol today, but hold other BP meds unless pt becomes significantly hypertensive continue amlodipine, metoprolol hold statin in setting of daptomycin use daily weights, pt euvolemic 05/11 no cardiac symptoms patient euvolemic History of CVA continue plavix, statin on hold chronic stable PAF chronic, stable continue metoprolol not on OAC Diet-controlled T2DM with polyneuropathy chronic, stable a1c 6.9 lantus/novolog per protocol CKD stage III chronic, stable cr at baseline, avoid nephrotoxic agents Acute hyponatremia na 129, serum osm, urine osm, urine na Sodium 132 Chronic C. difficile infection follows [facility] ID, stable continue oral vanco Rheumatoid arthritis Chronic prednisone therapy Plaquenil on hold Neutropenia has been worked up with BM bx and p. smear as OP needs to f/u with hematology as OP She has not followed up since biopsy in jul 05 COPD ILD continue home inhalers chronic, stable, no acute exac DVT prophylaxis: Heparin Full code PCP: João Dispo: lives at home with her Admission and Anticipated Discharge Date Admission Date: May 08, 2023 Subjective Follow-up for UTI, etc. Resting in bed, watching TV, comfortable, in good spirits States she continues to feel improved Overall strength improving, ambulating in the hallways today with no problems Denies abdominal, back pain, problems with urination, fevers or chills Appetite is good Left wrist discomfort improving No other symptoms Review of Systems Review of Systems: all noted and negative except for above Physical Exam Physical Exam: General- oriented x 3, not in distress, speaks in sentences with no effort or accessory muscle use Eyes- anicteric Neck- no JVD Lungs- clear breath sounds bilaterally Heart- normal rate, regular rhythm; no murmurs Abdomen- normal bowel sounds, nondistended, soft, nontender Extremities- no pretibial edema, no calf tenderness Left wrist wound: Improving Neuro- alert, oriented x 3; no gross focal neurologic deficits Skin- warm & dry Results & Data Results & Data Vital Signs (Past 12 Hours) Vital Signs Temp Pulse Pulse Resp BP Pulse Ox O2 Del Method 05/11/23 16:02 89 05/11/23 11:32 36.6 C 88 18 118/75 97 Room Air 05/11/23 08:04 84 05/11/23 07:22 36.8 C 88 16 134/79 96 Room Air all noted and reviewed including below
[2023-05-11] MEDS: MONTELUKAST SODIUM 10 MG TABLET PO SCH (21:34)
[2023-05-11] MEDS: LATANOPROST 0.005% OP SOLN 2.5 ML BTL OPB SCH (21:36)
[2023-05-12] MEDS: RASPBERRY SYRUP 5 ML UDP PO SCH ×5 (00:31→23:08)
[2023-05-12] MEDS: VANCOMYCIN HCL 125 MG/2.5ML SOLN PO SCH ×5 (00:31→23:08)
[2023-05-12] MEDS: MICONAZOLE NITRATE POWDER 85 GM EXT SCH ×2 (08:40→20:40)
[2023-05-12] MEDS: FERROUS SULFATE 325 MG TAB PO SCH (08:40)
[2023-05-12] MEDS: CHOLECALCIFEROL 1,000 UNITS 25 MCG TAB PO SCH (08:40)
[2023-05-12] MEDS: THIAMINE HCL 50 MG TABLET PO SCH (08:40)
[2023-05-12] MEDS: FLUTICASONE/VILANTEROL 200/25MCG 14 PUFFS/INHALER INH SCH (08:40)
[2023-05-12] MEDS: MUPIROCIN 2% OINT 22 GM TUBE EXT SCH ×2 (08:40→20:39)
[2023-05-12] MEDS: MAGNESIUM OXIDE 400 MG TAB PO SCH ×2 (08:40→20:42)
[2023-05-12] MEDS: CLOPIDOGREL BISULFATE 75 MG TAB PO SCH (08:41)
[2023-05-12] MEDS: HEPARIN SOD 5,000 UNIT/0.5 ML VIAL SQ SCH ×2 (08:41→20:42)
[2023-05-12] MEDS: ADVANCED PROBIOTIC 1250 MG CAPSULE PO SCH (08:41)
[2023-05-12] MEDS: FOLIC ACID 1 MG TAB PO SCH (08:41)
[2023-05-12] MEDS: METOPROLOL SUCC 25MG EXT REL TAB PO SCH (08:41)
[2023-05-12] MEDS: DULoxetine HCL 60 MG CAP PO SCH (08:41)
[2023-05-12] MEDS: LANTUS PER UNIT CHARGE SQ SCH (08:41)
[2023-05-12] MEDS: PANTOprazole 40 MG TAB PO SCH (08:41)
[2023-05-12] MEDS: predniSONE 5 MG TAB PO SCH (08:41)
[2023-05-12] MEDS: amLODIPine BESYLATE 5 MG TAB PO SCH (08:41)
[2023-05-12] MEDS: AZITHROMYCIN 250 MG TAB PO SCH (08:41)
[2023-05-12] MEDS: INSULIN ASPART PER UNIT CHARGE SC SCH ×4 (08:42→20:38)
[2023-05-12] MEDS: ERTAPENEM SODIUM 1,000 MG in SYRINGE 0 ML IV SCH (08:53)
--- NOTE | 2023-05-12 11:18 | Infectious Disease Consult ---
Date of Consultation May 12, 2023 Assessment & Plan Plan Patient who p/w with fever for 4 weeks and found to have ESBL Klebsiella UTI for which she is on ertapenem and oral vancomycin .Recommend treating with ciprofloxacin if no CI susch as QT prolongation for 7-10 days.There is int eraction with her cymbalta and would require monitoring as it can increase the levels of duloxetine.Another option would be augmentin (some concern because the unasyn is intermediate but would be a reasonable option if there is no indwelling combs) .Thank you for allowing us to participate in the care of this patient ID will sign off Consultation Information Consultation was provided via telemedicine using two-way real-time interactive telecommunication between the patient and the telemedicine provider. For the duration of the visit, the provider was performing the assessment from a different facility than the patient. This includesuse of bluetooth stethoscope forauscultationperformed by the telepresenter that the telemedicine provider can hear if described in the physical exam. [employer] [facility] contact information: Please call [facility] [phone]. (Phone Number For Physician Use Only) History of Present Illness Reason for Consultation: Klebsiella ESBL UTI Attending Physician: Deven Johnson MD History of Present Illness 77 y/o F PMHx of T2DM, HTN, HLD, interstitial lung disease, COPD, chronic right- sided heart failure, CAD, history of CVA, paroxysmal atrial fibrillation, GERD, osteoporosis, diabetic polyneuropathy, POA G, rheumatoid arthritis, history of C. difficile, depression and neutropenia who presents to ED secondary to complaint of fever x1 month.She was initially started on daptomycin and cefepime which was switched to ertapenem when her urine culture grew ESBL Klebsiella and oral vancomycin Allergies Allergy/AdvReac Type Severity Reaction Status Date / Time Influenza Virus Vaccines Allergy Severe FLOWN TO Verified 05/08/23 11:44 [facility]. methotrexate Allergy Intermediate RASH/PNEUMO Verified 05/08/23 11:44 NITIS Penicillins Allergy Intermediate hives Verified 05/08/23 11:44 ranitidine Allergy Intermediate rash Verified 05/08/23 11:44 [facility] AdvReac Severe CAUSE Uncoded 05/08/23 11:44 BREATHING ISSUES Home Medications Medication Instructions Recorded Confirmed Type duloxetine 30 mg capsule,delayed 60 mg PO QAM 07/20/18 05/08/23 History release folic acid 1 mg tablet 1 mg PO QAM 07/20/18 05/08/23 History prednisone 5 mg tablet 5 mg PO QAM 07/20/18 05/08/23 History albuterol sulfate 90 mcg/actuation 2 puff inhalation Q4 PRN Shortness 03/07/19 05/08/23 History aerosol inhaler (ProAir HFA) Of Breath cyanocobalamin (vitamin B-12) 2,000 mcg PO 3XWK 03/07/19 05/08/23 History 1,000 mcg tablet (Vitamin B-12) vit A 300 mcg-C 200 mg-E 27 1 tab PO QDL 03/07/19 05/08/23 History mg-lutein 2 mg and minerals tablet (Ocuvite with Lutein) [id number] 8 mg-folic 400 1 tab PO QDL 11/12/19 05/08/23 History mcg-K 50 mcg-lutein 300 mcg tablet (Centrum Silver Women) montelukast 10 mg tablet 10 mg PO HS 11/15/20 05/08/23 History latanoprost 0.005 % eye drops 1 drp OPB HS 01/03/21 05/08/23 History solifenacin 10 mg tablet (Vesicare) 10 mg PO QDL 08/22/21 05/08/23 History acetaminophen 325 mg tablet 325 mg PO BID PRN Pain 03/21/22 05/08/23 History fluticasone furoate 200 1 inh inhalation DAILY 03/21/22 05/08/23 History mcg-vilanterol 25 mcg/dose inhalation powder (Breo Ellipta) thiamine HCl (vitamin B1) 100 mg 50 mg PO DAILY 03/21/22 05/08/23 History tablet vancomycin 125 mg capsule 125 mg PO Q6H 03/21/22 05/08/23 History clopidogrel 75 mg tablet 75 mg PO QAM #30 tabs 04/01/22 05/08/23 Rx magnesium oxide 400 mg (241.3 mg 400 mg PO BID #60 tabs 04/01/22 05/08/23 Rx magnesium) tablet Lactobacillus rhamnosus GG 5 5 cell PO BID 08/06/22 05/08/23 History billion cell oral powder packet (Culturelle Kids Probiotics) albuterol sulfate 2.5 mg/3 mL 2.5 mg inhalation DIRECTED PRN 08/06/22 05/08/23 History (0.083 %) solution for nebulization Shortness Of Breath Or Wheezing amlodipine 10 mg tablet 10 mg PO QAM 08/06/22 05/08/23 History betamethasone dipropionate 0.05 % 1 applic topical BID PRN AFFECTED 08/06/22 05/08/23 History topical cream AREA cholecalciferol (vitamin D3) 50 50 mcg PO QAM 08/06/22 05/08/23 History mcg (2,000 unit) capsule (Vitamin D3) ferrous sulfate 325 mg (65 mg 325 mg PO QAM 08/06/22 05/08/23 History iron) tablet levalbuterol HCl 1.25 mg/3 mL 1.25 mg inhalation Q4H PRN 08/06/22 05/08/23 History solution for nebulization (Xopenex) SOB/COUGH/WHEEZING menthol 0.44 %-zinc oxide 20.6 % 1 applic topical BID PRN AFFECTED 08/06/22 05/08/23 History topical ointment (Calmoseptine) AREA pantoprazole 40 mg tablet,delayed 40 mg PO QAM 08/06/22 05/08/23 History release (Protonix) triamcinolone acetonide 0.1 % 1 applic topical BID PRN AFFECTED 08/06/22 05/08/23 History topical cream AREA hydroxychloroquine 200 mg tablet 200 mg PO HS 30 days #30 tabs 08/31/22 05/08/23 Rx metoprolol succinate 25 mg 25 mg PO DAILY 05/08/23 05/08/23 History tablet,extended release 24 hr rosuvastatin 10 mg tablet 20 mg PO HS 05/08/23 05/08/23 History Patient History Medical History Abnormal ECG Acute hyponatremia Asthma inhalers prn Chronic steroid use prednisone daily CKD (chronic kidney disease), stage III CKD (chronic kidney disease), stage III COPD (chronic obstructive pulmonary disease) inhalers prn Depression DJD of right shoulder DM type 2 (diabetes mellitus, type 2) DVT prophylaxis Dyslipidemia Elevated troponin Gastroparesis GERD (gastroesophageal reflux disease) Glaucoma Gout H/O interstitial lung disease "drug induced- methotrexate " Heart disease History of stroke HTN (hypertension) Hyponatremia Hyponatremia Immunosuppressed status Migraines Nontraumatic rectus hematoma NSTEMI (non-ST elevated myocardial infarction) (08/06/13) NSTEMI (non-ST elevated myocardial infarction) NSTEMI (non-ST elevated myocardial infarction) Osteoarthritis Peripheral neuropathy Recurrent Clostridium difficile diarrhea Rheumatoid arthritis "on chronic steroids" RSV infection Syncope Thrush, oral UTI (urinary tract infection) Visual hallucinations Wrist fracture, left Surgical History H/O cardiac catheterization "cath 07/2013- single vessel CAD involving apical segment LAD, medical management indicated" H/O colonoscopy History of esophagogastroduodenoscopy (EGD) History of hysterectomy History of tooth extraction all top teeth S/P removal of ovarian cyst S/P rotator cuff repair "right shoulder" S/P total knee arthroplasty "left knee" Family History Father Family history of diabetes mellitus Mother Heart disease Hypertension Other No family history of adverse response to anesthesia Social History Smoking Status: Never smoker Second Hand Exposure: No; Do You Dip or Chew Tobacco: No; Hx Alcohol Use: No Hx Substance Use: No Preferred Language: Mohawk Communication Ability: Effective Industrial Equipment Mechanic Required: No Beliefs That Will Affect Care: None marital status: Current Living Situation: Spouse current occupational status: retired current occupation: Former [employer] Feels Safe at Home: Yes Safety Concerns: Feels Safe At This Time Assistive Devices: Bedside Commode, Scooter/Electric Scooter, Walker and Wheelchair Results & Data Vital Signs (Past 12 Hours) Vital Signs Temp Pulse Pulse Resp BP Pulse Ox O2 Del Method 05/12/23 07:41 82 05/12/23 07:25 36.8 C 79 18 147/93 H 97 Room Air 05/12/23 02:00 36.6 C 78 19 125/71 95 Room Air Laboratory Results ESBL K pne RX M.I.C. --- --------- Amox/Clav S <=8/4 Amp/Sul I 16/8 Cefazolin R >16 Cefepime R >16 Cefotaxime R >16 Ceftriaxone R >2 Ciprofloxacin S <=0.25 Ertapenem S <=0.5 Gentamicin S <=4 Levofloxacin S <=0.5 Meropenem S <=1 Nitrofurantoin I 64 Tobramycin S <=4 Trimeth/Sulfa R >2/ Pip/Tazo S <=16 S = SENSITIVE I = INTERMEDIATE R = RESISTANT Diagnostic Findings FINDINGS: Right reverse shoulder arthroplasty is seen. The cardiomediastinal silhouette is normal. The lungs are clear. No evidence of pleural effusion or pneumothorax. IMPRESSION: No acute abnormalities and in particular no radiographic evidence of pneumonia.
[2023-05-12] MEDS: OXYBUTYNIN CHLORIDE XL 5 MG TABCR PO SCH (11:43)
[2023-05-12] MEDS: CEROVITE ADV FORMULA TAB PO SCH (11:43)
--- NOTE | 2023-05-12 13:19 | Hospitalist Progress Note ---
Date of Service May 12, 2023 Assessment & Plan (1) Fever and neutropenia: (2) Acute UTI: (3) Cat scratch: (4) DM type 2 (diabetes mellitus, type 2): (5) Paroxysmal atrial fibrillation: (6) Hyponatremia: Plan per admitting service notes with addendum: This is a 77-year-old female who has significant past medical history of T2DM, HTN, HLD, interstitial lung disease, COPD, chronic right-sided heart failure, CAD, history of CVA, paroxysmal atrial fibrillation, GERD, osteoporosis, diabetic polyneuropathy, POA G, rheumatoid arthritis, history of C. difficile, depression and neutropenia who presents to ED secondary to complaint of Fever x1 month. Per CMS guidelines patient meets for sepsis criteria secondary to neutropenia, tachycardia and documented fever in outpatient setting. Sepsis Metabolic encephalopathy UTI, Klebsiella pneumoniae, ESBL Cat scratch Dorsal aspect L wrist 05/12 Clinically improved after receiving Cefepime, Ertapenem Mental status back to baseline wound healing well Urine culture: Klebsiella E coli Blood cultures: negative x 48 hours ID service consulted- Dr. Gómez recommend Ciprofloxacin 500mg BID x 9 more days to complete 14 day course monitor CMP and EKG for QTc prolongation completed 5 day Azithromycin course for cat scratch disease CAD Chronic R sided heart failure with preserved EF Elevated troponin Hypertension 05/12 no cardiac symptoms patient euvolemic History of CVA continue plavix, statin on hold chronic stable PAF chronic, stable continue metoprolol not on OAC Diet-controlled T2DM with polyneuropathy chronic, stable a1c 6.9 lantus/novolog per protocol CKD stage III chronic, stable cr at baseline, avoid nephrotoxic agents Acute hyponatremia na 129, serum osm, urine osm, urine na Sodium 132 Chronic C. difficile infection follows judith ID, stable continue usual oral vanco Rheumatoid arthritis Chronic prednisone therapy Plaquenil on hold Neutropenia has been worked up with BM bx and p. smear as OP needs to f/u with hematology as OP She has not followed up since biopsy in jul 05 COPD ILD continue home inhalers chronic, stable, no acute exac DVT prophylaxis: Heparin Full code PCP: João Dispo: d/c home with home health services tomorrow Admission and Anticipated Discharge Date Admission Date: May 08, 2023 Subjective ff up for UTI, etc seen resting in bed, comfortable in good spirits states she feels fine overall no chest pain, dyspnea, palpitations, dizziness no abdominal pain, nausea/vomiting, fever/chills, etc no other symptoms Review of Systems Review of Systems: all noted and negative except for above Physical Exam Physical Exam: General- oriented x 3, not in distress, speaks in sentences with no effort or accessory muscle use Eyes- anicteric Neck- no JVD Lungs- clear breath sounds bilaterally, no crackles/wheezing Heart- normal rate, regular rhythm; no murmurs Abdomen- normal bowel sounds, nondistended, soft, no tenderness Extremities- no pretibial edema, no calf tenderness L wrist- wound healing well Neuro- alert, oriented x 3; no gross focal neurologic deficits Skin- warm & dry Results & Data Results & Data Vital Signs (Past 12 Hours) Vital Signs Temp Pulse Pulse Resp BP Pulse Ox O2 Del Method 05/12/23 12:14 36.8 C 78 18 125/73 94 Room Air 05/12/23 07:41 82 05/12/23 07:25 36.8 C 79 18 147/93 H 97 Room Air 05/12/23 02:00 36.6 C 78 19 125/71 95 Room Air all noted and reviewed including below
[2023-05-12] MEDS: LATANOPROST 0.005% OP SOLN 2.5 ML BTL OPB SCH (20:40)
[2023-05-12] MEDS: MONTELUKAST SODIUM 10 MG TABLET PO SCH (20:43)
[2023-05-13] MEDS: RASPBERRY SYRUP 5 ML UDP PO SCH ×2 (05:23→12:14)
[2023-05-13] MEDS: VANCOMYCIN HCL 125 MG/2.5ML SOLN PO SCH ×2 (05:23→12:14)
[2023-05-13 06:54] LABS: Creatinine Clr Calc Pharmacy 36.5 ml/min; Est GFR (African American) 61.6 ml/min; Est GFR (Non-African American) 53.1 ml/min
[2023-05-13] MEDS: MUPIROCIN 2% OINT 22 GM TUBE EXT SCH (08:46)
[2023-05-13] MEDS: METOPROLOL SUCC 25MG EXT REL TAB PO SCH (08:47)
[2023-05-13] MEDS: FOLIC ACID 1 MG TAB PO SCH (08:47)
[2023-05-13] MEDS: FERROUS SULFATE 325 MG TAB PO SCH (08:47)
[2023-05-13] MEDS: CYANOCOBALAMIN (B-12) 500 MCG TABLET PO SCH (08:47)
[2023-05-13] MEDS: CLOPIDOGREL BISULFATE 75 MG TAB PO SCH (08:47)
[2023-05-13] MEDS: ADVANCED PROBIOTIC 1250 MG CAPSULE PO SCH (08:47)
[2023-05-13] MEDS: amLODIPine BESYLATE 5 MG TAB PO SCH (08:47)
[2023-05-13] MEDS: CHOLECALCIFEROL 1,000 UNITS 25 MCG TAB PO SCH (08:47)
[2023-05-13] MEDS: predniSONE 5 MG TAB PO SCH (08:48)
[2023-05-13] MEDS: PANTOprazole 40 MG TAB PO SCH (08:48)
[2023-05-13] MEDS: DULoxetine HCL 60 MG CAP PO SCH (08:48)
[2023-05-13] MEDS: FLUTICASONE/VILANTEROL 200/25MCG 14 PUFFS/INHALER INH SCH (08:48)
[2023-05-13] MEDS: HEPARIN SOD 5,000 UNIT/0.5 ML VIAL SQ SCH (08:48)
[2023-05-13] MEDS: THIAMINE HCL 50 MG TABLET PO SCH (08:48)
[2023-05-13] MEDS: MAGNESIUM OXIDE 400 MG TAB PO SCH (08:48)
[2023-05-13] MEDS: INSULIN ASPART PER UNIT CHARGE SC SCH ×2 (08:49→12:06)
[2023-05-13] MEDS: MICONAZOLE NITRATE POWDER 85 GM EXT SCH (08:49)
[2023-05-13] MEDS: LANTUS PER UNIT CHARGE SQ SCH (08:55)
[2023-05-13] MEDS ORDERED: CIPROFLOXACIN 500 MG TAB PO SCH (09:00)
--- NOTE | 2023-05-13 11:33 | Hospitalist Progress Note ---
Date of Service May 13, 2023 Assessment & Plan (1) Fever and neutropenia: (2) Acute UTI: (3) Cat scratch: (4) DM type 2 (diabetes mellitus, type 2): (5) Paroxysmal atrial fibrillation: (6) Hyponatremia: Plan per admitting service notes with addendum: This is a 77-year-old female who has significant past medical history of T2DM, HTN, HLD, interstitial lung disease, COPD, chronic right-sided heart failure, CAD, history of CVA, paroxysmal atrial fibrillation, GERD, osteoporosis, diabetic polyneuropathy, POA G, rheumatoid arthritis, history of C. difficile, depression and neutropenia who presents to ED secondary to complaint of Fever x1 month. Per CMS guidelines patient meets for sepsis criteria secondary to neutropenia, tachycardia and documented fever in outpatient setting. Sepsis Metabolic encephalopathy UTI, Klebsiella pneumoniae, ESBL Cat scratch Dorsal aspect L wrist Clinically improved after receiving Cefepime, Ertapenem Mental status back to baseline wound healing well Blood cultures: negative x 48 hours ID service consulted- Dr. Gómez recommend Ciprofloxacin 500mg BID x 8 more days to complete 14 day course No QT prolongations in the EKG completed 5 day Azithromycin course for cat scratch disease Clinically much better today and denies any symptoms Has been ambulating without any difficulties She will be discharged home this afternoon on ciprofloxacin to continue for 8 more days CAD Chronic R sided heart failure with preserved EF Elevated troponin-serial troponins did not show any significant increase to support ACS Hypertension Denies any cardiac symptoms Blood pressure remains stable History of CVA continue plavix, statin on hold chronic stable PAF chronic, stable continue metoprolol not on OAC Diet-controlled T2DM with polyneuropathy chronic, stable a1c 6.9 lantus/novolog per protocol Blood sugar remains stable CKD stage III chronic, stable cr at baseline, avoid nephrotoxic agents Acute hyponatremia na 129, serum osm, urine osm, urine na Sodium 132 Chronic C. difficile infection follows judith ID, stable continue usual oral vanco Rheumatoid arthritis Chronic prednisone therapy Plaquenil on hold-we will restart Plaquenil on discharge Neutropenia has been worked up with BM bx and p. smear as OP needs to f/u with hematology as OP She has not followed up since biopsy in jul 05 COPD ILD continue home inhalers chronic, stable, no acute exac DVT prophylaxis: Heparin Full code PCP: João Dispo: d/c home with home health services tomorrow She will be discharged home this afternoon Admission and Anticipated Discharge Date Admission Date: May 08, 2023 Subjective 05/13/2023 The patient was seen and examined in telemetry unit She has been feeling much better and denies any symptoms No urinary symptoms, no nausea no vomiting, fever and or chills She will be discharged home this afternoon Review of Systems Review of Systems: All systems reviewed and are unremarkable except as noted below Physical Exam Physical Exam: Lying in bed comfortably Constitutional: well developed, well nourished and + obese; not ill appearing Eyes: PERRL, conjunctivae normal, anicteric sclerae ENMT: external ear and nose normal, oropharynx normal Neck: trachea midline, no thyromegaly Respiratory: no respiratory distress Auscultation: lungs clear to auscultation bilaterally Cardiovascular: Rate/Rhythm: regular rate and regular rhythm; not tachycardic Heart Sounds: normal S1 and normal S2; no murmur Extremities: no edema Gastrointestinal (Abdomen): Inspection/Auscultation: normal bowel sounds; abdomen not distended Percussion/Palpation: abdomen soft; abdomen nontender Musculoskeletal: No acute arthritis involving any joint Neurologic: normal touch/pain/proprioception and moves all extremities; no focal motor deficits Psychiatric: A+Ox3, euthymic affect Lymphatic: no cervical or axillary lymphadenopathy Results & Data Results & Data Vital Signs (Past 12 Hours) Vital Signs Temp Pulse Resp BP Pulse Ox O2 Del Method 05/13/23 11:15 36.9 C 70 17 115/63 93 Room Air 05/13/23 08:00 Room Air 05/13/23 07:30 37.0 C 77 18 115/65 93 Room Air Laboratory Results [facility] 05/13/23 05:30 Creatinine 1.03 Medications Administered Current Inpatient Medications Acetaminophen (Acetaminophen 325 Mg Tab) 650 mg PO Q4H PRN PRN Reason: Pain or Fever Stop: 06/07/23 15:12 Last Admin: 05/08/23 16:43 Dose: 650 mg Al Hydrox/Mg Hydrox/Simethicone (Aluminum/Magnesium Susp 30 Ml Udc) 15 ml PO Q4H PRN PRN Reason: Dyspepsia Stop: 06/07/23 15:12 Albuterol (Albut/Ipratrop 3mg/0.5mg Neb 3 Ml Vial) 3 ml NEB Q4R PRN; Protocol PRN Reason: sob/wheezing Stop: 06/07/23 15:12 Amlodipine Besylate (Amlodipine Besylate 5 Mg Tab) [facility] [place] Stop: 06/08/23 08:59 Last Admin: 05/13/23 08:47 Dose: 10 mg Calamine/Phenol (Menthol-Zinc Oxide 360 Appln/120 Gm Tube) 1 appln EXT BID PRN PRN Reason: AFFECTED AREA Stop: 06/07/23 15:12 Ciprofloxacin (Ciprofloxacin 500 Mg Tab) 500 mg PO BID KARLA; Protocol Stop: 05/23/23 08:59 Last Admin: 05/13/23 08:48 Dose: 500 mg Clopidogrel Bisulfate (Clopidogrel Bisulfate 75 Mg Tab) 75 [facility] [place] Stop: 06/08/23 08:59 Last Admin: 05/13/23 08:47 Dose: 75 mg Cyanocobalamin (Cyanocobalamin (B-12) 500 Mcg Tablet) 2,000 mcg PO MoWeFr@0900 [facility] Stop: 06/07/23 15:59 Last Admin: 05/13/23 08:47 Dose: 2,000 mcg Dextrose (Dextrose 50% 50 Ml Syringe) 25 - 50 ml IV UD PRN; Protocol PRN Reason: Hypoglycemia Protocol Stop: 06/07/23 15:12 Duloxetine HCl (Duloxetine Hcl 60 Mg Cap) 60 mg PO [facility] Stop: 06/08/23 08:59 Last Admin: 05/13/23 08:48 Dose: 60 mg Ferrous Sulfate (Ferrous Sulfate 325 Mg Tab) 325 mg PO [facility] Stop: 06/08/23 08:59 Last Admin: 05/13/23 08:47 Dose: 325 mg Fluticasone/Vilanterol (Fluticasone/Vilanterol 200/25mcg 14 Puffs/Inhaler) 1 puffs INH DAILY [facility] Stop: 06/08/23 08:59 Last Admin: 05/13/23 08:48 Dose: 1 puffs Folic Acid (Folic Acid 1 Mg Tab) [facility] [place] Stop: 06/08/23 08:59 Last Admin: 05/13/23 08:47 Dose: 1 mg Glucagon (Glucagon For Inj 1 Mg Vial) 1 mg SQ UD PRN; Protocol PRN Reason: Hypoglycemia Protocol Stop: 06/07/23 15:12 Glucose (Glucose 10 Tab/Tube) 4 - 8 tab PO UD PRN; Protocol PRN Reason: Hypoglycemia Treatment Stop: 06/07/23 15:12 Glucose (Glucose 40% Gel 15 Gm Tube) 15 - 30 gm PO UD PRN; Protocol PRN Reason: Hypoglycemia Protocol Stop: 06/07/23 15:12 Heparin Sodium (Porcine) (Heparin Sod 5,000 Unit/0.5 Ml Vial) 5,000 units SQ Q12 [facility] Stop: 06/08/23 08:59 Last Admin: 05/13/23 08:48 Dose: 5,000 units Insulin Aspart (Insulin Aspart Per Unit Charge) 0 units SC ACHS [facility] Stop: 06/07/23 16:29 Last Admin: 05/13/23 08:49 Dose: Not Given Insulin Glargine (Lantus Per Unit Charge) 0 units SQ DAILY [facility] Stop: 06/08/23 08:59 Last Admin: 05/13/23 08:55 Dose: Not Given Lactobacillus Acidophilus (Advanced Probiotic 1250 Mg Capsule) 2 cap PO DAILY [facility] Stop: 06/08/23 08:59 Last Admin: 05/13/23 08:47 Dose: 2 cap Latanoprost (Latanoprost 0.005% Op Soln 2.5 Ml Btl) 1 drops OPB HS [facility] Stop: 06/07/23 20:59 Last Admin: 05/12/23 20:40 Dose: 1 drops Magnesium Hydroxide (Magnesium Hydroxide Susp 30 Ml Udc) 30 ml PO Q12H PRN PRN Reason: Constipation Stop: 06/07/23 15:12 Magnesium Oxide (Magnesium Oxide 400 Mg Tab) 400 mg PO BID [facility] Stop: 06/07/23 20:59 Last Admin: 05/13/23 08:48 Dose: 400 mg Metoprolol Succinate (Metoprolol Succ 25mg Ext Rel Tab) 25 mg PO DAILY [facility] Stop: 06/08/23 08:59 Last Admin: 05/13/23 08:47 Dose: 25 mg Miconazole Nitrate (Miconazole Nitrate Powder 85 Gm) 1 appln EXT BID [facility] Stop: 06/07/23 20:59 Last Admin: 05/13/23 08:49 Dose: 1 appln Miscellaneous (Carbohydrates For Hypoglycemia ) 15 - 30 gm PO UD PRN PRN Reason: Hypoglycemia Protocol Stop: 06/07/23 15:12 Montelukast Sodium (Montelukast Sodium 10 Mg Tablet) 10 mg PO HS [facility] Stop: 06/07/23 20:59 Last Admin: 05/12/23 20:43 Dose: 10 mg Multivitamins/Minerals (Cerovite Adv Formula Tab) 1 tab PO QDL [facility] Stop: 06/08/23 11:29 Last Admin: 05/12/23 11:43 Dose: 1 tab Mupirocin (Mupirocin 2% Oint 22 Gm Tube) 1 appln EXT BID [facility] Stop: 05/15/23 20:59 Last Admin: 05/13/23 08:46 Dose: 1 appln Ondansetron HCl (Ondansetron Inj 2 Mg/Ml 2 Ml Vial) 4 mg IV Q6H PRN PRN Reason: Nausea Stop: 06/07/23 15:12 Oxybutynin Chloride (Oxybutynin Chloride Xl 5 Mg Tabcr) 10 mg PO QDL [facility] Stop: 06/08/23 11:29 Last Admin: 05/12/23 11:43 Dose: 10 mg Pantoprazole Sodium (Pantoprazole 40 Mg Tab) 40 mg PO QAM [facility] Stop: 06/08/23 08:59 Last Admin: 05/13/23 08:48 Dose: 40 mg Polyethylene Glycol (Polyethylene (Miralax) 17 Gm Pack) 17 gm PO DAILY PRN PRN Reason: Constipation Stop: 06/07/23 15:12 Prednisone (Prednisone 5 Mg Tab) 5 mg PO QAM [facility] Stop: 06/08/23 08:59 Last Admin: 05/13/23 08:48 Dose: 5 mg Raspberry (Raspberry Syrup 5 Ml Udp) 5 ml PO Q6 [facility] Stop: 05/18/23 17:59 Last Admin: 05/13/23 05:23 Dose: 5 ml Thiamine HCl (Thiamine Hcl 50 Mg Tablet) 50 mg PO DAILY [facility] Stop: 06/08/23 08:59 Last Admin: 05/13/23 08:48 Dose: 50 mg Vancomycin HCl (Vancomycin Hcl 125 Mg/2.5ml Soln) 125 mg PO Q6 [facility] Stop: 06/07/23 17:59 Last Admin: 05/13/23 05:23 Dose: 125 mg Vitamin D (Cholecalciferol 1,000 Units 25 Mcg Tab) 2,000 units PO QAM [facility] Stop: 06/08/23 08:59 Last Admin: 05/13/23 08:47 Dose: 2,000 units
[2023-05-13] MEDS: OXYBUTYNIN CHLORIDE XL 5 MG TABCR PO SCH (12:13)
[2023-05-13] MEDS: CEROVITE ADV FORMULA TAB PO SCH (12:13)
--- NOTE | 2023-05-14 07:42 | Discharge Summary ---
Date of Service May 13, 2023 Admission HPI Per Admitting Provider This is a 77-year-old female who has significant past medical history of T2DM, HTN, HLD, interstitial lung disease, COPD, chronic right-sided heart failure, CAD, history of CVA, paroxysmal atrial fibrillation, GERD, osteoporosis, diabetic polyneuropathy, POA G, rheumatoid arthritis, history of C. difficile, depression and neutropenia who presents to ED secondary to complaint of Fever x1 month. Of significance she was seen in PCP office today with reports of fever with Tmax of 103, confusion and fatigue. Symptoms have been ongoing and worsening for the past month. She was referred to ED for further evaluation. In clinic her temp was documented at 38.9 with a pulse of 110. is at bedside and also helps elicit history. She has been having intermittent fevers for the past month with temperatures of 10 2-1 03. When her temperature is elevated she becomes confused, seeing things and talking to things that are not there. has witnessed this. They state that this is happened in the past and her fevers would just go away; however since that of been ongoing for a month they decided to be seen. She does complain of dysuria and increased frequency with urination. She does have prior history of UTI and states it feels similar. She also notes that she got scratched by her cat 1.5 weeks ago and has been putting antibiotic ointment on it. She denies any chills, sweats, lightheadedness, dizziness, chest pain, cough, nausea, vomiting, diarrhea, hematuria or melena. She does have chronic shortness of breath due to underlying lung disease which is stable. At baseline she typically ambulates with a cane or walker. She last fell 1 month ago with no injury. She did not take any of her medications this morning. at bedside helps her with medication management. There are no other open wounds other than the cat scratch. In ED patient met sepsis criteria secondary to fever, neutropenia and tachycardia. She also missed her morning dose of metoprolol. Her initial u rinalysis concerning for possible UTI. Blood and urine cultures obtained. Lactic acid and procalcitonin were normal. She did have a mildly bumped troponin and EKG was unchanged from baseline. She was ordered IV cefepime and daptomycin but these have not yet been administered prior to my evaluation. She also was mildly hyponatremic and hypochloremic. Patient's epic chart was reviewed. She does have history of chronic C. difficile. She was last seen by infectious disease in February 2023. At that time they recommended discontinuing vancomycin as she had been on of it for 2 years, but this resulted in more frequent diarrhea and therefore she is now back on it 4 times a day. She also has an underlying neutropenia which was discovered during hospitalization in November 2021. She did have hematology work-up as outpatient in June with a peripheral smear and bone marrow biopsy which was relatively unrevealing. She has not followed up with hematology but states that she does have a outpatient follow-up in the next couple weeks. Admission Exam Per Admitting Provider Physical Exam: Constitutional: WD/WN, elderly, F vitals as above, NAD, sitting up in bed, pleasant, conversing easily Head: Normocephalic, Atraumatic Eyes: PERRL, conjunctivae normal, anicteric sclerae ENMT: external ear and nose normal, oropharynx normal edentulous Neck: trachea midline, no thyromegaly normal visual inspection Respiratory: normal respiratory effort, lungs clear to auscultation, no wheeze, rales, rhonchi. Normal insp/exp effort, no accessory muscle use Cardiovascular: tachycardic rate, reg rhythm, no murmur, no edema Vessels: no JVD or carotid bruit Chest: normal inspection of chest Abdomen: normal bowel sounds, soft, nontender, no hepatosplenomegaly Musculoskeletal: no cyanosis or clubbing, extremities motor strength 5/5 Skin: +cat scratch/skin tear to dorsal aspect of left wrist with surrounding erythema but no warm, no lymphangitis, multiple area of ecchymosis on uppper ext, warm and dry normal turgor Neurologic: PERRL, EOMI, accommodation nl, no face palsy, no dysarthria CN's II-XI intact bilaterally and moves all extremities Psychiatric: A+Ox3, euthymic affect Lymphatic: no cervical or axillary lymphadenopathy : deferred Principal Diagnosis UTI secondary to Klebsiella pneumoniae ESBL, metabolic and cephalopathy- resolved, CAD, type 2 diabetes Discharge Exam Lying in bed comfortably Constitutional well developed, well nourished and + obese; not ill appearing Eyes PERRL, conjunctivae normal, anicteric sclerae ENMT external ear and nose normal, oropharynx normal Neck trachea midline, no thyromegaly Respiratory no respiratory distress Auscultation: lungs clear to auscultation bilaterally Cardiovascular Rate/Rhythm: regular rate and regular rhythm; not tachycardic Heart Sounds: normal S1 and normal S2; no murmur Extremities: no edema Gastrointestinal (Abdomen) Inspection/Auscultation: normal bowel sounds; abdomen not distended Percussion/Palpation: abdomen soft; abdomen nontender Neurologic normal touch/pain/proprioception and moves all extremities; no focal motor deficits Psychiatric A+Ox3, euthymic affect Lymphatic no cervical or axillary lymphadenopathy Discharge Data Allergies Allergy/AdvReac Type Severity Reaction Status Date / Time Influenza Virus Vaccines Allergy Severe FLOWN TO Verified 05/08/23 11:44 [facility]. methotrexate Allergy Intermediate RASH/PNEUMO Verified 05/08/23 11:44 N[facility] Penicillins Allergy Intermediate hives Verified 05/08/23 11:44 ranitidine Allergy Intermediate rash Verified 05/08/23 11:44 [facility] AdvReac Severe CAUSE Uncoded 05/08/23 11:44 BREATHING ISSUES Consultations 05/08/23 11:51 ED Decision to Admit Stat 05/11/23 15:03 Consult Infectious Diseases Routine Ordered Studies 05/08/23 10:20 CT head/brain wo con Stat Hospital Course (1) Fever and neutropenia: (2) Acute UTI: (3) Cat scratch: (4) DM type 2 (diabetes mellitus, type 2): (5) Paroxysmal atrial fibrillation: (6) Hyponatremia: Plan per admitting service notes with addendum: This is a 77-year-old female who has significant past medical history of T2DM, HTN, HLD, interstitial lung disease, COPD, chronic right-sided heart failure, CAD, history of CVA, paroxysmal atrial fibrillation, GERD, osteoporosis, diabetic polyneuropathy, POA G, rheumatoid arthritis, history of C. difficile, depression and neutropenia who presents to ED secondary to complaint of Fever x1 month. Per CMS guidelines patient meets for sepsis criteria secondary to neutropenia, tachycardia and documented fever in outpatient setting. Sepsis Metabolic encephalopathy UTI, Klebsiella pneumoniae, ESBL Cat scratch Dorsal aspect L wrist Clinically improved after receiving Cefepime, Ertapenem Mental status back to baseline wound healing well Blood cultures: negative x 48 hours ID service consulted- Dr. Gómez recommend Ciprofloxacin 500mg BID x 8 more days to complete 14 day course No QT prolongations in the EKG completed 5 day Azithromycin course for cat scratch disease Clinically much better today and denies any symptoms Has been ambulating without any difficulties She will be discharged home this afternoon on ciprofloxacin to continue for 8 more days CAD Chronic R sided heart failure with preserved EF Elevated troponin-serial troponins did not show any significant increase to support ACS Hypertension Denies any cardiac symptoms Blood pressure remains stable History of CVA continue plavix, statin on hold chronic stable PAF chronic, stable continue metoprolol not on OAC Diet-controlled T2DM with polyneuropathy chronic, stable a1c 6.9 lantus/novolog per protocol Blood sugar remains stable CKD stage III chronic, stable cr at baseline, avoid nephrotoxic agents Acute hyponatremia na 129, serum osm, urine osm, urine na Sodium 132 Chronic C. difficile infection follows jud[facility] ID, stable continue usual oral vanco Rheumatoid arthritis Chronic prednisone therapy Plaquenil on hold-we will restart Plaquenil on discharge Neutropenia has been worked up with BM bx and p. smear as OP needs to f/u with hematology as OP She has not followed up since biopsy in jul 05 COPD ILD continue home inhalers chronic, stable, no acute exac DVT prophylaxis: Heparin Full code PCP: João Dispo: d/c home with home health services tomorrow She will be discharged home this afternoon Total Time Total Time Spent Total Time Spent (In Minutes): 35 minutes Discharge Plan Discharge Items Patient Disposition: Home - Home Health Services Reason For Visit: SEPSIS, UTI Discharge Diagnosis: UTI secondary to Klebsiella pneumoniae ESBL, metabolic and cephalopathy- resolved, CAD, type 2 diabetes Condition on Discharge: Good Activity: Resume your previous activity Non-emergency contact: Primary Care Provider Call non-emergency contact if: you have any medication questions and your symptoms worsen Follow-up/Referrals: Leni Moyer DO [Primary Care Provider] - (Date & Time 05/15/2023 3:40 PM Provider Keily Reese MD Department Family Medicine [facility] ) Diet: Carb Consistent or DM2 Addtl Attending Provider Instructions: Please take precautions to avoid falls Finish the course of antibiotic as advised Please keep appointments with your healthcare providers Take your medications as advised Pending Studies at Discharge: No Stand-Alone Forms: My swiftQueue, Smoking Cessation Medications and DC Order Prescriptions: New ciprofloxacin HCl 500 mg Tablet 500 mg PO BID Qty: 16 0RF Continued latanoprost 0.005 % drops 1 drp OPB HS cyanocobalamin (vitamin B-12) [Vitamin B-12] 1,000 mcg Tablet 2,000 mcg PO 3XWK Rx Instructions: mon, wed, fri albuterol sulfate [ProAir HFA] 90 mcg/actuation Hfa Aerosol Inhaler 2 puff INHALATION Q4 PRN (Reason: Shortness Of Breath) Ocuvite with Lutein 1,000 unit-200 mg-60 unit-2 mg Tablet 1 tab PO QDL prednisone 5 mg tablet 5 mg PO QAM folic acid 1 mg tablet 1 mg PO QAM duloxetine 30 mg capsule,delayed release(DR/EC) 60 mg PO QAM Centrum Silver Women 8 mg iron-400 mcg-300 mcg Tablet 1 tab PO QDL montelukast 10 mg Tablet 10 mg PO HS vancomycin 125 mg capsule 125 mg PO Q6H thiamine HCl (vitamin B1) 100 mg tablet 50 mg PO DAILY acetaminophen 325 mg Tablet 325 mg PO BID PRN (Reason: Pain) fluticasone furoate-vilanterol [Breo Ellipta] 200-25 mcg/dose blister with device 1 inh INHALATION DAILY clopidogrel 75 mg Tablet 75 mg PO QAM Qty: 30 0RF magnesium oxide 400 mg (241.3 mg magnesium) Tablet 400 mg PO BID Qty: 60 0RF albuterol sulfate 2.5 mg /3 mL (0.083 %) Solution For Nebulization 2.5 mg INHALATION DIRECTED PRN (Reason: Shortness Of Breath Or Wheezing) triamcinolone acetonide 0.1 % Cream 1 applic TOPICAL BID PRN (Reason: AFFECTED AREA) betamethasone dipropionate 0.05 % Cream 1 applic TOPICAL BID PRN (Reason: AFFECTED AREA) levalbuterol HCl [Xopenex] 1.25 mg/3 mL Solution For Nebulization 1.25 mg INHALATION Q4H PRN (Reason: SOB/COUGH/WHEEZING) menthol-zinc oxide [Calmoseptine] 0.44-20.6 % Ointment 1 applic TOPICAL BID PRN (Reason: AFFECTED AREA) Culturelle Kids Probiotics 5 billion cell Powder In Packet 5 cell PO BID ferrous sulfate 325 mg (65 mg iron) Tablet 325 mg PO QAM cholecalciferol (vitamin D3) [Vitamin D3] 50 mcg (2,000 unit) Capsule 50 mcg PO QAM amlodipine 10 mg tablet 10 mg PO QAM pantoprazole [Protonix] 40 mg Tablet,Delayed Release (Dr/Ec) 40 mg PO QAM hydroxychloroquine 200 mg Tablet 200 mg PO HS 30 Days Qty: 30 2RF solifenacin [Vesicare] 10 mg tablet 10 mg PO QDL rosuvastatin 10 mg tablet 20 mg PO HS metoprolol succinate 25 mg tablet extended release 24 hr 25 mg PO DAILY Discharge Orders: Discharge Order (Routine); Ordered 05/13/23 Ordered By: Kevin Bowser/Other Patient Handouts: Managing Type 2 Diabetes Admission Data Admit Date/Time: 05/08/23 12:34 Attending Provider: Kevin Rodriguez Admit Provider: Ryder Boogie Primary Care Provider: Leni Moyer Other Providers: Ryder Boogie ; Liam Whiteside ; Gasper Swanson ; Skip Givens I. ; Dank Tang II ; Ami Marrero ; Kenneth Daniel ; Dean Hidalgo ; Kristin Draper ; Deven Johnson Other Interventions: Discharge Summary Assessment (RN) Last Done: 05/13/23 13:06
== END 2023-05-13 13:07 | disposition home health service (06) | DRG 871 ==
LOC: ED 09:59 → 2E 12:34 → SUATTDRO 12:34 → 2E 14:32

== ENCOUNTER 2023-09-05 18:31 | Inpatient (IN) ==
--- OUTSIDE RECORDS SUMMARY | 2023-09-05 18:38 | External Medical Summary | Summary of Care ---
Author Name Unknown Organization [facility] Address [address] [address] Phone [phone] Care Team Providers Care Fire Safety Inspector Name Role Phone Leni Moyer DO Primary Care Provider Reason for Visit * Reason Onset Date Comments Advice 09/05/2023 Encounter Details Date Type Department Care Team (Late st Contact Info) Description 09/05/2023 Telephone Family Medicine [address] [phone] Leni Moyer DO [address] [place] [address] [place] [id number] Advice Allergies Active Allergy Reactions Criticality Noted Date Comments Ciprofloxacin Bleeding High 05/27/2023 And rash Influenza Virus Vac Live Quad High 06/12/2021 2 years ago, flown to [facility] Methotrexate 08/19/2013 pneumonitis Other Allergy (See Comments) Rash 012 Insecticides cause breathing problems Penicillins Hives 02/01/2001 Ranitidine Rash 07/14/2001 documented as of this encounter (statuses as of 09/05/2023) Medications Medication Sig Dispensed Refills Start Date End Date Status ONETOUCH ULTRASOFT LANCETS MISC Check BS twice daily. E 11.9 1 Box Dosing Unit 11 12/15/2016 Active Nystatin (NYSTOP) 972145 UNIT/GM powderIndications:Cu taneous candidiasis APPLY TOPICALLY TO AFFECTED AREA 3 TIMES A DAY. SPRINKLE OVER AFFECTED AREA. 15 g 2 12/15/2016 Active Blood Glucose Monitoring Suppl (TuneCore SYSTEM) w/Device KIT Twice daily. Dx E 11.9 1 Kit 0 12/25/2017 Active Glucose Blood (Eye-FiUCH ULTRA BLUE) STRPIndications:Type 2 diabetes mellitus with hemoglobin A1c goal of less than 7.0% ([facility]) Check BS twice daily E11.9 100 Strip 11 12/28/2017 Active Respiratory Therapy Supplies (NEBULIZER/TUBING/MO UTHPIECE) KIT 0 Active Menthol-Zinc Oxide 0.44-20.6 % External Ointment (Calmoseptine) Apply 6 %(Oxygen) topically to affected area as needed. 1 application ext bid 0 Active Acetaminophen 325 MG Oral Tablet Take 1 Tablet by mouth as needed. 0 Active Culturelle Kids Oral Packet Take 1 Packet by mouth in the morning and 1 Packet before bedtime. 60 Each 0 10/01/2022 Active Fluticasone Furoate-Vilanterol 200-25 MCG/ACT Inhalation Aerosol Powder Breath Activated (BREO ellipta)Indications: Mild persistent asthma without complication Inhale 1 Puff by mouth in the morning. Rinse mouth after use. 180 Blister Dosing Unit 3 10/01/2022 Active Ferrous Sulfate 325 (65 Fe) MG Oral Tablet (Feosol) Take 1 Tablet by mouth daily with breakfast. 30 Tablet 0 10/01/2022 Active Vitamin D3 50 MCG (2000 UT) Oral Capsule Take 1 Capsule by mouth in the morning. 30 Capsule 0 10/01/2022 Active Albuterol Sulfate HFA 108 (90 Base) MCG/ACT Inhalation Aerosol SolutionIndications: Moderate persistent asthma without complication Inhale 2 Puffs by mouth every 4 hours as needed for Cough, Shortness of Breath or Wheezing. 18 g 2 10/01/2022 Active B-12 1000 MCG Oral CapsuleIndications:B 12 deficiency 2000mcg Thursday, Thursday, and Thursday 30 Capsule 0 10/01/2022 Active Centrum Silver 50+Women Oral Tablet Take 1 Tablet by mouth in the morning. 30 Tablet 0 10/01/2022 Active Levalbuterol HCl 1.25 MG/3ML Inhalation Nebulization Solution (Xopenex) via nebulizer every 4 hours as needed for SOB or cough and wheezing Dx: Asthma J45.30 72 mL 3 10/01/2022 Active Ocuvite-Lutein Oral Capsule Take 1 Capsule by mouth in the morning. 30 Capsule 0 10/01/2022 Active predniSONE 5 MG Oral Tablet (Deltasone) TAKE ONE TABLET BY MOUTH EVERY DAY 90 Tablet 1 03/03/2023 4 Active Folic Acid 1 MG Oral TabletIndications:Rh eumatoid arthritis (HCC) Take 1 Tablet by mouth daily. 100 Tablet 2 03/30/2023 Active Latanoprost 0.005 % Ophthalmic Solution (Xalatan)Indications :Primary open angle glaucoma of both eyes, mild stage INSTILL 1 DROP INTO BOTH EYES AT BEDTIME 7.5 mL 0 03/31/2023 Active DULoxetine HCl 30 MG Oral Capsule Delayed Release Particles (Cymbalta)Indication s:Generalized osteoarthritis of multiple sites,Degeneration of lumbosacral intervertebral disc,Adjustment disorder with anxious mood Take 2 Capsules by mouth daily. 200 Capsule 1 04/08/2023 Active Thiamine HCl 100 MG Oral Tablet (vitamin B-1)Indications:Thia mine deficiency TAKE 1/2 TABLET BY MOUTH DAILY. 45 Tablet 1 04/08/2023 Active Rosuvastatin Calcium 20 MG Oral Tablet (Crestor) Take 1 Tablet by mouth in the morning. 90 Tablet 3 04/08/2023 Active Additional Information Patient taking differently:20 mg OralHS, Informant: At Discharge, Reported on 05/14/2023 Solifenacin Succinate 10 MG Oral Tablet (VESIcare) TAKE ONE TABLET BY MOUTH EVERY DAY IN THE MORNING 90 Tablet 3 04/30/2023 4 Active Albuterol Sulfate (2.5 MG/3ML) 0.083% Inhalation Nebulization Solution Inhale 1 Vial via nebulizer. Use as directed, if needed, for shortness of breath or wheezing 0 Active Triamcinolone Acetonide 0.1 % External Cream (Aristocort)Indicati ons:Rash and nonspecific skin eruption Apply topically to affected area 2 times a day. To affected area. 80 g 1 05/27/2023 Active Montelukast Sodium 10 MG Oral Tablet (Singulair) Take 1 Tablet by mouth in the morning. 100 Tablet 3 06/08/2023 Active Pantoprazole Sodium 40 MG Oral Tablet Delayed Release (Protonix)Indication s:Gastroesophageal reflux disease, unspecified whether esophagitis present take 1 tablet by mouth daily 30 to 60 minutes before the first meal of the day 100 Tablet 3 06/15/2023 Active Clopidogrel Bisulfate 75 MG Oral Tablet (pLAVix) Take 1 Tablet by mouth in the morning. 100 Tablet 3 06/15/2023 Active Vancomycin HCl 125 MG Oral Capsule (Vancocin) Take 1 Capsule by mouth every 6 hours. 360 Capsule 0 07/01/2023 Active Metoprolol Succinate ER 25 MG Oral Tablet Extended Release 24 Hour (toPROL XL) Take 1 Tablet by mouth in the morning. 100 Tablet 1 07/10/2023 Active amLODIPine Besylate 5 MG Oral Tablet (Norvasc) Take 1 Tablet by mouth in the morning. 100 Tablet 1 07/10/2023 Active WheelchairIndication s:Rheumatoid arthritis involving multiple sites with positive rheumatoid factor (HCC),Generalized weakness,Personal history of fall 1 small wheelchair. 1 Each 0 07/10/2023 Active Hydroxychloroquine Sulfate 200 MG Oral Tablet (Plaquenil) Take 1 Tablet by mouth at bedtime. 90 Tablet 0 08/20/2023 Active documented as of this encounter (statuses as of 09/05/2023) Active Problems Problem Noted Date Diagnosed Date FUO (fever of unknown origin) 07/10/2023 Polyneuropathy associated with underlying diseas e 10/15/2022 Paroxysmal atrial fibrillation 10/15/2022 History of 2019 novel coronavirus disease (COVID -19) 09/18/2022 DNR (do not resuscitate) 09/17/2022 H/O Clostridium difficile infection 2022 Primary open angle glaucoma (POAG) of both eyes, mild stage 04/02/2022 History of CA (myocardial infarction) 04/02/2022 Neutropenia 04/02/2022 Last Assessment & Plan: Cbc 04/18/22 WBC 2.6 No infectious sx Following with heme/onc Cerebrovascular disease, arteriosclerotic, post- stroke 04/02/2022 Overview: MRI brain 03/21/22--acute infarct in left putamen with associated soft tissue swelling Last Assessment & Plan: CVA 03/2022 Recovering well Continue Plavix 75 mg daily, Rosuvastatin 20 mg daily, Mild aortic stenosis 04/02/2022 Type 2 diabetes mellitus wit h stage 3b chronic kidney disease, without long-term current use of insulin 02/24/2022 Last Assessment & Plan: BG monitored daily. Reviewed. Stable Managed with diet Last HgbA1C 12/03 6.5 Hypertensive heart and kidne y disease with chronic right heart failure and stage 3b chronic kidney disease 02/24/2022 Last Assessment & Plan: BP at goal Euvolemic Cr. 1.3 on 04/09/22 Continue Metoprolol ER 75 mg daily, Norvasc 10 mg daily Moderate protein-calorie malnutrition 12/04/2021 Type 2 diabetes mellitus wit h hemoglobin A1c goal of less than 8.0% 11/25/2021 Age-related osteoporosis wit hout current pathological fracture 06/08/2020 detention current use of therapeutic drug 2019 Chronic right-sided heart failure 11/03/2019 Major depressive disorder, r ecurrent episode, in partial remission 11/03/2019 Last Assessment & Plan: Managed well with Cymbalta 60 mg daily Gastroesophageal reflux disease without esophagi tis 11/03/2019 Last Assessment & Plan: Managed with pantoprazole 40 mg daily Coronary artery disease invo lving [place] coronary artery of [place] heart without angina pectoris 11/03/2019 Last Assessment & Plan: Stable Continue BB, statin History of rotator cuff tear 05/20/2019 Type 2 diabetes mellitus with peripheral neuropa thy 05/10/2019 Esophageal dysphagia 03/01/2019 Impingement syndrome, shoulder, left 03/26/2018 Chronic obstructive pulmonary disease 07/23/2017 Last Assessment & Plan: Continue Breo 1 puff daily, albuterol prn, Generalized osteoarthritis of multiple sites 10/2016 Encounter for long-term (current) use of medicat ions 09/02/2016 Adjustment disorder with anxious mood 03/13/2016 Essential hypertension with goal blood pressure less than 140/90 03/13/2016 Rheumatoid arthritis involvi ng multiple sites with positive rheumatoid factor 03/05/2016 Last Assessment & Plan: Follows with Rheum Continue prednisone 5 mg daily Asthma, mild persistent 07/18/2015 Thiamine deficiency 08/15/2013 Peripheral neuropathy 08/12/2013 Abnormality of gait 08/12/2013 B12 deficiency 07/28/2013 Chronic drug-induced interstitial lung disorders 06/06/2013 Overview: Methotrxate Vitamin D deficiency 04/11/2010 DYSLIPIDEMIA, GOAL LDL BELOW 100 08/21/2009 Overview: Per Lipid Taxonomy. Gouty arthropathy 06/28/2009 Overview: ICD-9 Code Update ICD-10 update of inactive term Knee joint replacement status 12/14/2007 Slow transit constipation 11/19/2005 LUMB-LUMBOSAC DISC DEGEN 07/16/2005 Carpal tunnel syndrome 07/16/2005 Other allergic rhinitis 12/15/2003 Overview: ICD-10 update of inactive term Other specified glaucoma Degenerative cervical spinal stenosis documented as of this encounter (statuses as of 09/05/2023) Resolved Problems Problem Noted Date Diagnosed Date Resolved Date Pressure ulcer of sacral region, unstageable 3 04/08/2023 Closed nondisplaced fracture of triquetrum of left wrist with routine healing 09/07/2022 04/08/20 23 Migraine 04/02/2022 04/02/2022 Thrombocytopenia 04/02/2022 10/15/2022 Prediabetes 06/17/2021 11/25/2021 Chronic kidney disease, stage 3b 01/22/2021 2022 Overview: Per CKD protocol Hypertensive kidney disease with stage 3b chronic kidney disease 08/27/2020 11/03/2022 Overview: Per CKD protocol - Per CKD protocol Hypertensive kidney disease with stage 3a chronic kidney disease 07/23/2020 08/30/2020 Overview: Per CKD protocol Major neurocognitive disorde r due to multiple etiologies 11/03/2019 12/07/2020 History of Clostridium difficile colitis 05/20/2019 07/10/2023 Last Assessment & Plan: No diarrhea reported Continue chronic vancomycin 125 mg daily Hypertensive kidney disease with chronic kidney disease stage III 05/10/2019 07/26/2020 Overview: Per CKD protocol C. difficile diarrhea 03/28/20192018 Food insecurity 03/21/2019 04/30/2021 Overview: Per [facility] Protocol Type 2 diabetes mellitus wit h hemoglobin A1c goal of less than 8.0% 03/01/2019 06/17/2021 Food insecurity 10/25/2018 03/18/2019 Overview: Per [facility] Protocol Postextubation stridor 07/28/201803/01 Leukocytosis 07/28/2018 03/01/2019 Encephalopathy acute 07/24/2018 019 Left lower lobe pneumonia 07/24/2018 Food insecurity 04/27/2018 10/13/2018 Overview: Per [facility] Protocol Controlled diabetes mellitus with diabetic polyneuropathy 04/12/2018 05/10/2019 MEDICATION USE AGREEMENT 07/31/2017 Controlled substance agreement signed 02/19/2017 12/06/2021 Primary osteoarthritis of right shoulder 10/04/2015 04/15/2017 Type 2 diabetes mellitus wit h diabetic chronic kidney disease 04/03/2015 06/17/2021 HTN, goal below 140/90 12/05/201408/11 Hypertension goal BP (blood pressure) < 140/80 08/01/2014 12/05/2014 Persistent insomnia 03/29/2013 12/27/19 14 Rheumatoid arthritis 11/25/2011 016 Asthma, moderate persistent 05/31/2010 12/05/2014 Asthma with severity to be determined 03/07/2010 05/31/2010 Overview: Per Asthma Taxonomy ICD-10 update of inactive term Severe obesity with body mas s index (BMI) of 35.0 to 39.9 with serious comorbidity 12/10/2009 Overview: Per Obesity Taxonomy ICD-10 update of inactive diagnosis Major depressive disorder 11/23/2009 Overview: ICD-10 update of inactive term HTN, goal below 130/80 09/05/200908/01 HTN, goal below 140/90 07/20/200909/05 Overview: Modified per HTN Taxonomy. DM TYPE 2 CAUSING RENAL DZ 07/12/2009 0 10/04/2015 Overview: Per Diabetes Taxonomy. Type 2 diabetes mellitus wit h hemoglobin A1c goal of less than 7.0% 07/12/2009 03/01/2019 Overview: Per Diabetes Taxonomy. ICD-10 update of inactive term Type 2 diabetes mellitus wit h hemoglobin A1c goal of less than 7.0% 07/11/2008 07/12/2009 Overview: Per Diabetes Taxonomy. ICD-10 update of inactive term DM type 2, not at goal 03/03/200707/11 Mixed dyslipidemia 03/03/2007 9 Overview: Per Lipid Taxonomy. Gastroparesis 01/11/2007 03/18/2019 LOC PRIM OSTEOART-SHLDER 09/02/2006 GENERAL OSTEOARTHROSIS 08/05/200604/15 INTRINSIC ASTHMA UNSPEC 05/06/200602/13 ADVANCE DIRECTIVE INFORMATION 11/19/2005 03/18/2019 Overview: No, Advance Directive brochure offered , patient declined. No, Advance Directive brochure given to patient at prior appointment. GENERAL OSTEOARTHROSIS 07/16/200512/05 OPEN WOUND ARM MULT-NOS 11/05/200411/13 Gouty arthropathy 02/27/2004 06/28/2009 Overview: ICD-9 Code Update ICD-10 update of inactive term LOC PRIM [id number] 04/12/2003 0810/2016 PURE HYPERCHOLESTEROLEM 12/27/200107/16 Asthma with severity to be determined 12/07/2007 Overview: ICD-10 update of inactive term OBESITY, UNSPECIFIED 010 Overview: Per Obesity Taxonomy Rotator cuff rupture 019 BENIGN HYPERTENSION 07/20/20 09 Overview: Modified per HTN Taxonomy. Esophageal reflux 02/24/2022 Overview: Duplicate Type 2 diabetes mellitus wit h hemoglobin A1c goal of less than 7.0% 05/04/2007 Overview: ICD-10 update of inactive term DIAB RENAL MANIF ADULT 07/12 Overview: Per Diabetes Taxonomy. Knee joint replacement status 12/07/2007 Abnormal results of liver function studies 12/26/2013 Kidney disease, chronic, sta ge III (GFR 30-59 ml/min) 05/27/2019 COPD, moderate 12/05/2014 CAD (coronary artery disease ), [place] coronary artery 02/24/2022 Overview: duplicate documented as of this encounter (statuses as of 09/05/2023) Immunizations Name Administration Dates Next Due COVID-19 mRNA, LNP-s, No Pre serve, 2-Dose Series (Moderna) 05/06/2021,01/31/2021,01/02/2021 COVID-19, LNP-s, No Preserve , Pete-sucrose, Ages 12+ (Kick Sport) 03/26/2022 COVID-19, mRNA, LNP-s, PF, B ooster, 100mcg/0.5mg (Moderna) 05/06/2021 Influenza, Whole Virus 08/05/2000 PPD 11/25/2011 Pneumococcal Conjugate Vacc, 13 Valent (Prevnar) 06/28/2015 Pneumococcal Polysaccharide PPV23 (Pneumovax) 03/05/2017,11/25/2011,08/05/2006 Seasonal Influenza, PF, 6 M & above, IM , (FluLaval or Fluzone) 06/14/2018,06/22/2017 Seasonal Influenza, Quadriva lent, No Preserve, IM 08/12/2016,06/28/2015 Seasonal Influenza, Split, I IV3, With Preserve, Inj 08/01/2014,06/28/2013,05/25/2012,07/17,10/02/2010,10/05/2009,08/05/20,09/17/2004,07/18/2002 07/18/2003 TD - Tetanus/Diptheria (ADULT) 10/31/2004 TDAP (age 11 and older)(Adacel) 10/02/2010 Zoster Vaccine Recombinant (Shingrix) 03/02/2023 ,12/29/2022 documented as of this encounter Social History Tobacco Use Types Packs/Day Years Used Date Smoking Tobacco: Never Smokeless Tobacco: Never Alcohol Use Standard Drinks/Week Comments Not Currently 0 (1 standard drink = 0.6 oz pur e alcohol) ocassional PHQ-2 Answer Date Recorded PHQ Adult Total Score 2 04/08/2023 Hunger Vital Sign Answer Date Recorded Worried About Running Out of Food in the Last Ye ar Never true 05/20/2019 Ran Out of Food in the Last Year Never true 05/20/2019 Sex and Gender Information Value Date Recorded Sex Assigned at Not on file Gender Identity Not on file Sexual Orientation Not on file Job Start Date Occupation Industry Not on file Not on file Not on file documented as of this encounter Miscellaneous Notes * Telephone Encounter - Radha Maravilla LPN - 09/05/2023 2:57 PM EST Called and spoke with and told him that Dr Meza recommended her take her to ED for evaluation as it could be any number of issues with her. Said he will take her either tonight or tomorrow morning if not improved * Telephone Encounter - Mildred Meza DO - 09/05/2023 1:39 PM EST Could be a number of acute issues, ie infection, stroke I would suggest an Er evaluation * Telephone Encounter - Lyn Bui OSA - 09/05/2023 1:11 PM EST Pt is calling back to say that Pt had a stroke in the past and has done this before where she wouldn't eat and she won't take her medications. She is very confused. He states no fever, no vomiting. He is not sure what is wrong with her * Telephone Encounter - Radha Maravilla LPN - 09/05/2023 1:01 PM EST Called LM for to call back and give more information and issue. Why is pt not eating is shecurrently sick and if so what symptoms like any nausea of vomiting, does pt have any depression issues or other illness that may cause this. * Telephone Encounter - Irish Robison OSA - 09/05/2023 11:26 AM EST [facility] called patient is not eating Would like a call back. documented in this encounter Plan of Treatment Upcoming Encounters Date Type Department Care Team (Late st Contact Info) Description 01/29/2024 3:10 PM EDT Office Visit Family Medicine [address] [phone] [address] [place] [id number] Health Maintenance Due Date Last Done Comments Alpha-1 Antitrypsin 1963 Hepatitis B (1 of 3 - Risk 3-dose series) 2007 DTaP,Tdap,and Td Vaccines (2 - Td or Tdap) 10/02/2020 10/02/2010, 10/31/2004 *BISPHONATE OR OTHER ACCEPTABLE MEDICATION NEEDED FOR OSTEOPOROSIS (REFER TO SMARTSET #1146) 06/28/2022 COVID-19 Vaccine ( season) 2023 03/26/2022, 05/06/2021, 05/06/2021, Additional history exists Influenza Vaccine (FLU shot) (#1) 2023 06/14/2018, 06/22/2017, 08/12/2016, Additional history exists Diabetic Eye Exam 07/03/2023 07/03/2022, , 04/12/2020, Additional history exists GFR 11/25/2023 05/27/2023, 0909/2022, 01/12/2023, Additional history exists HbA1c 01/09/2024 07/10/2023, 12/13, 06/10/2022, Additional history exists Albumin/Creatinine Ratio 04/08/2024 023, 04/15/2022, 06/12/2021, Additional history exists Depression Screening 04/08/2024 04/08/2023 Diabetic Foot Exam 04/08/2024 04/08/2023, 0 06/10/2022, 06/12/2021, Additional history exists CKD HGB USE SMARTSET 09275 07/10/202407/10, 07/10/2023, 05/27/2023, Additional history exists CKD PHOS USE SMARTSET 09421 07/10/202406/15, 04/15/2022, 03/12/2021, Additional history exists O2 ASSESSMENT COMPLETED IN PAST YEAR FOR COPD 07/10/2024 07/10/2023 DXA Scan 05/04/2025 05/04/2023, 03/14, 01/18/2013 Pneumococcal Vaccine: 65+ Years Completed 03/05/2017, 06/28/2015, 11/25/2011, Additional history exists Fecal Occult Blood Test Discontinued 09/23/19, 08/06/2018, 02/21/2004 VITAMIN D LEVEL ONCE IN A LIFETIME-USE SMARTSET# [id number] Completed 10/18/2020, 03/06/2020, 03/26/2018, Additional history exists Colonoscopy Discontinued 02/14/2021, 12/14, 01/07/2017, Additional history exists Colorectal Cancer Screening Discontinued Zoster Vaccines Completed 03/02/2023, 12/29/2022 Cologuard Discontinued GARDASIL-HPV IMMUNIZATION SERIES Aged Out No longer eligible based on patient's age to complete this topic MENINGOCOCCAL (MENACTRA/MENVEO) Aged Out No longer eligible based on patient's age to complete this topic Sigmoidoscopy Discontinued documented as of this encounter Medical Devices Implanted Type Area Cost And Risk Analysis Manager Device Identifier Shelf Expiration Date Model / Serial / Lot Lens 19.5 Sn60wf - [id number] - [id number] Implanted:Qty: 1 on 11/21/2016 by Faraz Jeffers MD at [facility] Left: Eye RAMÓN : SURGICAL 05/14/2021 SN60WF.1 95 / [id number] / Lens 19.5 Sn60wf - [id number] - [id number] Implanted:Qty: 1 on 04/22/2019 by Faraz Jeffers MD at OR [facility] Right: Eye RAMÓN : SURGICAL 07/14/2023 [id number].[id number] / [id number] / documented as of this encounter Advance Directives Latest Code Status on File Code Status Date Activated Date Inactivated Comments Full Code 07/25/2018 6:08 PM 08/03/2018 10:57 PM Question Answer Comments Discussion of Advance Direct joce occurred with: Not Discussed Code Status History Code Status Date Activated Date Inactivated Comments Full Code 11/21/2016 11:11 AM 11/24/2016 10:58 AM Thi s order reflects the patients wishes and were consensually agreed upon. Care Teams Fire Safety Inspector Relationship Specialty Start Date End Date Leni Moyer DO [address] [place] [address] [place] [id number] PCP - General Internal Medicine 11/18/17 documented as of this encounter
--- OUTSIDE RECORDS SUMMARY | 2023-09-05 18:39 | External Medical Summary | Summary of Care ---
Author Name Unknown Organization [facility] Address [address] [place] [address] Phone [phone] Care Team Providers Care Metal Door Assembler Name Role Phone Leni Moyer Primary Care Provider Encounter Details Date Type Department Care Team (Late st Contact Info) Description 07/03/2023 Telephone Care Coordination [address] [place] [address] Katherine Weinstein, [facility] Machine Operator [address], [place] [id number] Allergies Active Allergy Reactions Criticality Noted Date Comments Ciprofloxacin Bleeding High 05/27/2023 And rash Influenza Virus Vac Live Quad High 06/12/2021 2 years ago, flown to [facility] Methotrexate 08/19/2013 pneumonitis Other Allergy (See Comments) Rash 012 Insecticides cause breathing problems Penicillins Hives 02/01/2001 Ranitidine Rash 07/14/2001 documented as of this encounter (statuses as of 08/05/2023) Medications Medication Sig Dispensed Refills Start Date End Date Status ONETOUCH ULTRASOFT LANCETS MISC Check BS twice daily. E 11.9 1 Box Dosing Unit 11 12/15/2016 Active Nystatin (NYSTOP) 113231 UNIT/GM powderIndications:Cu taneous candidiasis APPLY TOPICALLY TO AFFECTED AREA 3 TIMES A DAY. SPRINKLE OVER AFFECTED AREA. 15 g 2 12/15/2016 Active Blood Glucose Monitoring Suppl (ONETOAirtime ULTRA SYSTEM) w/Device KIT Twice daily. Dx E 11.9 1 Kit 0 12/25/2017 Active Glucose Blood (FitLinxxTOUCH ULTRA BLUE) STRPIndications:Type 2 diabetes mellitus with hemoglobin A1c goal of less than 7.0% ([facility]) Check BS twice daily E11.9 100 Strip [...] B-12 1000 MCG Oral CapsuleIndications:B 12 deficiency 1999mcg Thursday, Thursday, and Thursday 30 Capsule 0 [...] 6 hours. 360 Capsule 0 07/01/2023 Active documented as of this encounter (statuses as of 08/05/2023) Active Problems Problem Noted Date Diagnosed Date FUO (fever of unknown origin) 07/10/2023 Polyneuropathy associated with underlying diseas e 10/15/2022 Paroxysmal atrial fibrillation 10/15/2022 History of 2019 novel coronavirus disease (COVID -19) 09/18/2022 DNR (do not resuscitate) 09/17/2022 H/O Clostridium difficile infection 2022 Primary open angle glaucoma (POAG) of both eyes, mild stage 04/02/2022 History of [place] (myocardial infarction) 04/02/2022 Neutropenia 04/02/2022 Last Assessment [...] osteoporosis wit hout current pathological fracture 06/08/2020 assisted current use of therapeutic drug 2019 Chronic right-sided heart failure 11/03/2019 Major depressive disorder, r ecurrent episode, in partial remission 11/03/2019 Last Assessment & Plan: Managed well with Cymbalta 60 mg daily Gastroesophageal reflux disease without esophagi tis 11/03/2019 Last Assessment & Plan: Managed with pantoprazole 40 mg daily Coronary artery disease invo lving [place] coronary artery of [place] heart without angina pectoris 11/03/2019 Last Assessment [...] as of this encounter (statuses as of 08/05/2023) Resolved Problems Problem Noted Date Diagnosed Date [...] ICD-10 update of inactive term LOC PRIM [id number] 04/12/200310/2016 PURE HYPERCHOLESTEROLEM 12/27/200107/16 Asthma with severity to [...] moderate 12/05/2014 CAD (coronary artery disease ), [place] coronary artery 02/24/2022 Overview: duplicate documented as of this encounter (statuses as of 08/05/2023) Immunizations Name Administration Dates Next Due COVID-19 mRNA, LNP-s, No Pre serve, 2-Dose Series (Moderna) 05/06/2021,01/31/2021,01/02/2021 COVID-19, LNP-s, No Preserve , Pete-sucrose, Ages 12+ (Pfizer) 03/26/2022 COVID-19, mRNA, LNP-s, PF, B ooster, 100mcg/0.5mg (Moderna) 05/06/2021 PPD 11/25/2011 Pneumococcal Conjugate Vacc, 13 Valent (Prevnar) 06/28/2015 Pneumococcal Polysaccharide PPV23 (Pneumovax) 03/05/2017,11/25/2011,08/05/2006 SEASONAL INFLUENZA, PF, 6 M & Above, IM , (FLULAVAL or FLUZONE) 06/14/2018,06/22/2017 Seasonal Influenza, Quadriva lent, No Preserve, IM 08/12/2016,06/28/2015 Seasonal Influenza, Split, I IV3, With Preserve, Inj 08/01/2014,06/28/2013,05/25/2012,08/13,10/02/2010,10/05/2009,08/05/2006 TDAP (age 11 and older)(Adacel) 10/02/2010 Zoster [...] on file documented as of this encounter Plan of Treatment Upcoming Encounters Date Type Department Care Team (Late st Contact Info) Description 08/10/2023 10:40 AM EST Office Visit Rheumatology [address] [place] [phone] Brandon Lewis MD [address] [facility] [place] [address] 01/29/2024 3:10 PM EDT Office Visit Family Medicine [address] [place] [phone] Leni Moyer[address] [place] [address] Health Maintenance Due Date Last Done Comments [...] 04/12/2020, Additional history exists GFR 11/25/2023 05/27/2023, 09/0 09/2022, 01/12/2023, Additional history exists HbA1c 01/09/2024 07/10/2023, 12/13, 06/10/2022, Additional history exists Albumin/Creatinine Ratio 04/08/2024 023, 04/15/2022, 06/12/2021, Additional history exists Depression Screening 04/08/2024 04/08/2023 Diabetic Foot Exam 04/08/2024 04/08/2023, 0 06/10/2022, 06/12/2021, Additional history exists CKD HGB USE SMARTSET 49177 07/10/202407/10, 07/10/2023, 05/27/2023, Additional history exists CKD PHOS USE SMARTSET 22838 07/10/202406/15, 04/15/2022, 03/12/2021, Additional history exists O2 ASSESSMENT COMPLETED IN PAST YEAR FOR COPD 07/10/2024 07/10/2023 DXA Scan 05/04/2025 05/04/2023, 03/14, 01/18/2013 Pneumococcal Vaccine: 65+ Years Completed 03/05/2017, 06/28/2015, 11/25/2011, Additional history exists Fecal Occult Blood Test Discontinued 09/23/19, 08/06/2018, 02/21/2004 VITAMIN D LEVEL ONCE IN A LIFETIME-USE SMARTSET# 11947 Completed 10/18/2020, 03/06/2020, 03/26/2018, Additional history exists [...] this encounter Medical Devices Implanted Type Area Funeral Arrangement Director Device Identifier Shelf Expiration Date Model / Serial / Lot Lens 19.5 Sn60wf - [id number] - [id number] Implanted:Qty: 1 on 11/21/2016 by Faraz Jeffers MD at [facility] Left: Eye RAMÓN : SURGICAL 05/14/2021 SN60WF.1 95 / [id number] / Lens 19.5 Sn60wf - [id number] - [id number] Implanted:Qty: 1 on 04/22/2019 by Faraz Jeffers MD at [facility] Right: Eye RAMÓN : SURGICAL 07/14/2023 SN60WF.195 / [id number] / documented as of this encounter Additional Health Concerns Infection Onset Date Last Indicated Resolved Time C. difficile Rule-Out 07/14/2023 07/14/20232022 2:40 PM EDT documented as of this encounter Advance Directives [...] and were consensually agreed upon. Care Teams Metal Door Assembler Relationship Specialty Start Date End Date Leni Moyer DO [address] [place] [address] [place] [phone] PCP - General Internal Medicine 11/18/17 documented as of this encounter
--- OUTSIDE RECORDS SUMMARY | 2023-09-05 18:39 | External Medical Summary | Summary of Care ---
Author Name Unknown Organization [facility] Address [address] [facility] [place] [address] Phone [phone] Care Team Providers Care Weld Fitter Name Role Phone Leni Moyer Primary Care Provider [phone] Reason for Visit * Reason Comments Medication Refill Encounter Details Date Type Department Care Team (Late st Contact Info) Description 07/21/[address] [place] [address] Fernandez Singh MD [address] [place] [address] [place] [address] Allergies Active Allergy Reactions Criticality Noted Date Comments Ciprofloxacin Bleeding High 05/27/2023 And rash Influenza Virus Vac Live Quad High 06/12/2021 2 years ago, flown to [facility] Methotrexate 08/19/2013 pneumonitis Other Allergy (See Comments) Rash 012 Insecticides cause breathing problems Penicillins Hives 02/01/2001 Ranitidine Rash 07/14/2001 documented as of this encounter (statuses as of 07/21/2023) Medications Medication Sig Dispensed Refills Start Date End Date Status BioVascularTOUCH ULTRASOFT LANCETS MISC Check BS twice daily. E 11.9 1 Box Dosing Unit 11 12/15/2016 Active Nystatin (NYSTOP) 714093 UNIT/GM powderIndications:C utaneous candidiasis APPLY TOPICALLY TO AFFECTED AREA 3 TIMES A DAY. SPRINKLE OVER AFFECTED AREA. 15 g 2 12/15/2016 Active Blood Glucose Monitoring Suppl (Exablox SYSTEM) w/Device KIT Twice daily. Dx E 11.9 1 Kit 0 12/25/2017 Active Glucose Blood (GLSSUCH ULTRA BLUE) STRPIndications:Typ e 2 diabetes mellitus with hemoglobin A1c goal of less than 7.0% ([facility]) Check BS twice daily E11.9 100 Strip 11 12/28/2017 Active Respiratory Therapy Supplies (NEBULIZER/TUBING/M OUTHPIECE) KIT 0 Active Menthol-Zinc Oxide 0.44-20.6 % [...] MCG/ACT Inhalation Aerosol Powder Breath Activated (BREO ellipta)Indications :Mild persistent asthma without complication Inhale 1 Puff [...] HFA 108 (90 Base) MCG/ACT Inhalation Aerosol SolutionIndications :Moderate persistent asthma without complication Inhale 2 Puffs by mouth every 4 hours as needed for Cough, Shortness of Breath or Wheezing. 18 g 2 10/01/2022 Active B-12 1000 MCG Oral CapsuleIndications: B12 deficiency 1999mcg Thursday, Thursday, and Thursday 30 [...] MOUTH EVERY DAY 90 Tablet 1 03/03/2023 03/02/20 24 Active Folic Acid 1 MG Oral TabletIndications:R heumatoid arthritis (HCC) Take 1 Tablet by mouth daily. 100 Tablet 2 03/30/2023 Active Latanoprost 0.005 % Ophthalmic Solution (Xalatan)Indication s:Primary open angle glaucoma of both eyes, mild stage INSTILL 1 DROP INTO BOTH EYES AT BEDTIME 7.5 mL 0 03/31/2023 Active DULoxetine HCl 30 MG Oral Capsule Delayed Release Particles (Cymbalta)Indicatio ns:Generalized osteoarthritis of multiple sites,Degeneration of lumbosacral intervertebral disc,Adjustment disorder with anxious mood Take 2 Capsules by mouth daily. 200 Capsule 1 04/08/2023 Active Thiamine HCl 100 MG Oral Tablet (vitamin B-1)Indications:Thi amine deficiency TAKE 1/2 TABLET BY MOUTH DAILY. [...] IN THE MORNING 90 Tablet 3 04/30/2023 04/29/20 24 Active Albuterol Sulfate (2.5 MG/3ML) 0.083% Inhalation Nebulization Solution Inhale 1 Vial via nebulizer. Use as directed, if needed, for shortness of breath or wheezing 0 Active Triamcinolone Acetonide 0.1 % External Cream (Aristocort)Indicat ions:Rash and nonspecific skin eruption Apply topically to affected area 2 times a day. To affected area. 80 g 1 05/27/2023 Active Montelukast Sodium 10 MG Oral Tablet (Singulair) Take 1 Tablet by mouth in the morning. 100 Tablet 3 06/08/2023 Active Pantoprazole Sodium 40 MG Oral Tablet Delayed Release (Protonix)Indicatio ns:Gastroesophageal reflux disease, unspecified whether esophagitis present take [...] the morning. 100 Tablet 1 07/10/2023 Active WheelchairIndicatio ns:Rheumatoid arthritis involving multiple sites with positive rheumatoid factor (HCC),Generalized weakness,Personal history of fall 1 small wheelchair. 1 Each 0 07/10/2023 Active Hydroxychloroquine Sulfate 200 MG Oral Tablet (Plaquenil) Take 1 Tablet by mouth at bedtime. 30 Tablet 0 07/21/2023 Active Hydroxychloroquine Sulfate 200 MG Oral Tablet (Plaquenil) Take 1 Tablet by mouth at bedtime. 30 Tablet 0 06/23/2023 07/21/20 23 Discontinu ed(Refill) documented as of this encounter (statuses as of 07/21/2023) Active Problems Problem Noted Date Diagnosed Date FUO (fever of unknown origin) 07/10/2023 Polyneuropathy associated with underlying diseas e 10/15/2022 Paroxysmal atrial fibrillation 10/15/2022 History of 2019 novel coronavirus disease (COVID -19) 09/18/2022 DNR (do not resuscitate) 09/17/2022 H/O Clostridium difficile infection 2022 Primary open angle glaucoma (POAG) of both eyes, mild stage 04/02/2022 History of [place] (myocardial infarction) 04/02/2022 Neutropenia 04/02/2022 Last Assessment [...] osteoporosis wit hout current pathological fracture 06/08/2020 FPC current use of therapeutic drug 2019 Chronic right-sided heart failure 11/03/2019 Major depressive disorder, r ecurrent episode, in partial remission 11/03/2019 Last Assessment & Plan: Managed well with Cymbalta 60 mg daily Gastroesophageal reflux disease without esophagi tis 11/03/2019 Last Assessment & Plan: Managed with pantoprazole 40 mg daily Coronary artery disease invo lving [place] coronary artery of [place] heart without angina pectoris 11/03/2019 Last Assessment [...] as of this encounter (statuses as of 07/21/2023) Resolved Problems Problem Noted Date Diagnosed Date [...] ICD-10 update of inactive term LOC PRIM [id number] 04/12/200310/2016 PURE HYPERCHOLESTEROLEM 12/27/200107/16 Asthma with severity [...] moderate 12/05/2014 CAD (coronary artery disease ), [place] coronary artery 02/24/2022 Overview: duplicate documented as of this encounter (statuses as of 07/21/2023) Immunizations Name Administration Dates Next Due COVID-19 [...] encounter Miscellaneous Notes * Telephone Encounter - Fernandez Singh MD - 07/21/2023 12:16 PM ESTSigned Prescriptions: Disp Refills Hydroxychloroquine Sulfate 200 MG Oral Tab*30 Tab*0 Sig: Take 1 Tablet by mouth at bedtime.Authorizing Provider: FERNANDEZ SINGH documented in this encounter Plan of Treatment Upcoming Encounters Date Type Department Care Team (Late st Contact Info) Description 08/10/2023 10:40 AM EST Office Visit Rheumatology [address] [place], [place] [phone] Brandon Lewis MD [address] [place] [address] 01/29/2024 3:10 PM EDT Office Visit Family Medicine [address] [place] [phone] [address] [place] [address] Health Maintenance Due Date Last Done Comments [...] 01/12/2023, Additional history exists HbA1c 01/09/2024 07/10/2023, 0403/2023, 06/10/2022, Additional history exists Albumin/Creatinine Ratio 04/08/20242 023, 04/15/2022, 06/12/2021, Additional history exists Depression Screening 04/08/2024 04/08/2023 Diabetic Foot Exam 04/08/2024 04/08/2023, 0 06/10/2022, 06/12/2021, Additional history exists CKD HGB USE SMARTSET 14435 07/10/202407/10, 07/10/2023, 05/27/2023, Additional history exists CKD PHOS USE SMARTSET 65283 07/10/202406/15, 04/15/2022, 03/12/2021, Additional history exists O2 ASSESSMENT COMPLETED IN PAST YEAR FOR COPD 07/10/2024 07/10/2023 DXA Scan 05/04/2025 05/04/2023, 03/14, 01/18/2013 Pneumococcal Vaccine: 65+ Years Completed 03/05/2017, 06/28/2015, 11/25/2011, Additional history exists Fecal Occult Blood Test Discontinued 09/23/19, 08/06/2018, 02/21/2004 VITAMIN D LEVEL ONCE IN A LIFETIME-USE SMARTSET# 22215 Completed 10/18/2020, 03/06/2020, 03/26/2018, Additional history exists [...] this encounter Medical Devices Implanted Type Area Plate And Weld Inspector Device Identifier Shelf Expiration Date Model / Serial / Lot Lens 19.5 Sn60wf - [id number] - [id number] Implanted:Qty: 1 on 11/21/2016 by Faraz Jeffers MD at [facility] Left: Eye RAMÓN : SURGICAL 05/14/2021 SN60WF.1 95 / [id number] 2 / Lens 19.5 Sn60wf - [id number] - [id number] Implanted:Qty: 1 on 04/22/2019 by Faraz Jeffers MD at OR [facility] Right: Eye RAMÓN : SURGICAL 07/14/2023 SN60WF.195 / [id number] / documented as of this encounter [...] and were consensually agreed upon. Care Teams Weld Fitter Relationship Specialty Start Date End Date Leni Moyer DO [address] [place] [address] [place] [phone] PCP - General Internal Medicine 11/18/17 documented as of this encounter
--- OUTSIDE RECORDS SUMMARY | 2023-09-05 18:39 | External Medical Summary | Summary of Care ---
Author Name Unknown Organization [facility] Address [address] [facility] [address] Phone [phone] Care Team Providers Care Key Holder Name Role Phone Leni Moyer DO Primary Care Provider [phone] Reason for Visit * Reason Onset Date Comments Medication Refill 08/20/2023 Encounter Details Date Type Department Care Team (Late st Contact Info) Description 08/20/2023 Refill Family Medicine [address] [phone] Fernandez Singh MD [address] [place] [address] [place] [address] Allergies Active Allergy Reactions Criticality Noted Date Comments Ciprofloxacin Bleeding High 05/27/2023 And rash Influenza Virus Vac Live Quad High 06/12/2021 2 years ago, flown to [facility] Methotrexate 08/19/2013 pneumonitis Other Allergy (See Comments) Rash 012 Insecticides cause breathing problems Penicillins Hives 02/01/2001 Ranitidine Rash 07/14/2001 documented as of this encounter (statuses as of 08/20/2023) Medications Medication Sig Dispensed Refills Start Date End Date Status ONETOUCH ULTRASOFT LANCETS MISC Check BS twice daily. E 11.9 1 Box Dosing Unit 11 12/15/2016 Active Nystatin (NYSTOP) 335124 UNIT/GM powderIndications:C utaneous candidiasis APPLY TOPICALLY TO AFFECTED AREA 3 TIMES A DAY. SPRINKLE OVER AFFECTED AREA. 15 g 2 12/15/2016 Active Blood Glucose Monitoring Suppl ([employer] ULTRA SYSTEM) w/Device KIT Twice daily. Dx E 11.9 1 Kit 0 12/25/2017 Active Glucose Blood (MedEncentiveUCH ULTRA BLUE) STRPIndications:Typ e 2 diabetes mellitus with hemoglobin A1c goal of less than 7.0% ([facility]) Check BS twice daily E11.9 100 Strip [...] at bedtime. 90 Tablet 0 08/20/2023 Active Hydroxychloroquine Sulfate 200 MG Oral Tablet (Plaquenil) Take 1 Tablet by mouth at bedtime. 30 Tablet 0 08/20/2023 08/20/20 23 Discontinu ed(Refill) documented as of this encounter (statuses as of 08/20/2023) Active Problems Problem Noted Date Diagnosed Date FUO (fever of unknown origin) 07/10/2023 Polyneuropathy associated with underlying diseas e 10/15/2022 Paroxysmal atrial fibrillation 10/15/2022 History of 2019 novel coronavirus disease (COVID -19) 09/18/2022 DNR (do not resuscitate) 09/17/2022 H/O Clostridium difficile infection 2022 Primary open angle glaucoma (POAG) of both eyes, mild stage 04/02/2022 History of [place] (myocardial infarction) 04/02/2022 Neutropenia 04/02/2022 Last Assessment [...] osteoporosis wit hout current pathological fracture 06/08/2020 longterm current use of therapeutic drug 2019 Chronic right-sided heart failure 11/03/2019 Major depressive disorder, r ecurrent episode, in partial remission 11/03/2019 Last Assessment & Plan: Managed well with Cymbalta 60 mg daily Gastroesophageal reflux disease without esophagi tis 11/03/2019 Last Assessment & Plan: Managed with pantoprazole 40 mg daily Coronary artery disease invo lving [place] coronary artery of [place] heart without angina pectoris 11/03/2019 Last Assessment [...] as of this encounter (statuses as of 08/20/2023) Resolved Problems Problem Noted Date Diagnosed Date [...] ICD-10 update of inactive term LOC PRIM [id number] 04/12/2003 08/0 10/2016 PURE HYPERCHOLESTEROLEM 12/27/200107/16 Asthma with severity to [...] moderate 12/05/2014 CAD (coronary artery disease ), [place] coronary artery 02/24/2022 Overview: duplicate documented as of this encounter (statuses as of 08/20/2023) Immunizations Name Administration Dates Next Due COVID-19 [...] Telephone Encounter - Fernandez Singh MD - 08/20/2023 3:56 PM ESTSigned Prescriptions: Disp Refills Hydroxychloroquine Sulfate 200 MG Oral Tab*90 Tab*0 Sig: Take 1 Tablet by mouth at bedtime. Authorizing Provider: FERNANDEZ SINGH * Telephone Encounter - Radha Hairston [facility] - 08/20/2023 3:50 PM EST Pharmacy is requesting a 90-day supply, pre-edited RXs as such. Please review and approve if appropriate. Pending Prescriptions: Disp Refills Hydroxychloroquine Sulfate 200 MG Oral Ta*90 Tab*0 Sig: Take 1 Tablet by mouth at bedtime. Last Visit: 07/10/2023 (in office), Visit date not found (telemedicine) 01/29/2024 If no future appointments scheduled, and last appointment is greater than a year ago, please schedule patient for an appointment Last date the medication was ordered: 08/20/2023 Patient Phone Numbers Labs: Lab Results Component Value Date/Time CREAT 1.1 (H) 05/27/2023 11:04 AM CREAT 1.3 (H) 08/13/2020 02:10 PM POTASSIUM 4.1 05/27/2023 11:04 AM POTASSIUM 3.2 (L) 08/13/2020 02:10 PM TSH 1.48 10/15/2022 12:58 PM TSH 3.07 09/12/2019 01:10 PM LDLCALC 30 10/18/2020 11:07 AM LDLCALC 09/12/2019 01:10 PM Uninterpretable, recommend direct LDL cholesterol testing. LDLDIRECT 51 12/29/2022 11:36 AM LDLDIRECT 27 03/06/2020 01:30 PM LDLDIRECT 89 08/02/2007 02:51 PM ALT 41 (H) 05/27/2023 11:04 AM ALT 21 08/13/2020 02:10 PM HGBA1C 7.1 (H) 07/10/2023 04:19 PM HGBA1C 6.4 (H) 03/06/2020 01:30 PM documented in this encounter Plan of Treatment Upcoming Encounters Date Type Department Care Team (Late st Contact Info) Description 01/29/2024 3:10 PM EDT Office Visit Family Medicine [address] [place] [phone] Leni Moyer [address] [place] [address] Health Maintenance Due Date Last Done Comments [...] Additional history exists CKD HGB USE SMARTSET 32403 07/10/202407/10, 07/10/2023, 05/27/2023, Additional history exists CKD PHOS USE SMARTSET 63794 07/10/202406/15, 04/15/2022, 03/12/2021, Additional history exists O2 ASSESSMENT COMPLETED IN PAST YEAR FOR COPD 07/10/2024 07/10/2023 DXA Scan 05/04/2025 05/04/2023, 03/14, 01/18/2013 Pneumococcal Vaccine: 65+ Years Completed 03/05/2017, 06/28/2015, 11/25/2011, Additional history exists Fecal Occult Blood Test Discontinued 09/23/19, 08/06/2018, 02/21/2004 VITAMIN D LEVEL ONCE IN A LIFETIME-USE SMARTSET# 96352 Completed 10/18/2020, 03/06/2020, 03/26/2018, Additional history exists [...] this encounter Medical Devices Implanted Type Area Ssis Ssrs Developer Device Identifier Shelf Expiration Date Model / Serial / Lot Lens 19.5 Sn60wf - [id number] - [id number] Implanted:Qty: 1 on 11/21/2016 by Faraz Jeffers MD at OR [facility] Left: Eye RAMÓN : SURGICAL 05/14/2021 SN60WF.1 95 / [id number] / Lens 19.5 Sn60wf - [id number] - [id number] Implanted:Qty: 1 on 04/22/2019 by Faraz Jeffers MD at OR [facility] Right: Eye RAMÓN : SURGICAL 07/14/2023 SN60WF.195 / [id number] / documented as of this encounter [...] and were consensually agreed upon. Care Teams Key Holder Relationship Specialty Start Date End Date Leni Moyer DO [address] [place] [address] [place] [phone] PCP - General Internal Medicine 11/18/17 documented as of this encounter
--- OUTSIDE RECORDS SUMMARY | 2023-09-05 18:39 | External Medical Summary | Summary of Care ---
Author Name Unknown Organization [facility] Address [address] [facility] [address] Phone [phone] Care Team Providers Care Supervisor Leaf [place] Repair Name Role Phone Leni Moyer DO Primary Care Provider Reason for Visit * Reason Onset Date Comments Advice 09/05/2023 Encounter Details Date Type Department Care Team (Late st Contact Info) Description 09/05/2023 Telephone Family Medicine [address] [phone] Leni Moyer DO [address] [place] [address] [place] [address] Advice Allergies Active Allergy Reactions Criticality Noted Date Comments Ciprofloxacin Bleeding High 05/27/2023 And rash Influenza Virus Vac Live Quad High 06/12/2021 2 years ago, flown to [facility] Methotrexate 08/19/2013 pneumonitis Other Allergy (See Comments) Rash 012 Insecticides cause breathing problems Penicillins Hives 02/01/2001 Ranitidine Rash 07/14/2001 documented as of this encounter (statuses as of 09/05/2023) Medications Medication Sig Dispensed Refills Start Date End Date Status ONETOUCH ULTRASOFT LANCETS MISC Check BS twice daily. E 11.9 1 Box Dosing Unit 11 12/15/2016 Active Nystatin (NYSTOP) 790348 UNIT/GM powderIndications:Cu taneous candidiasis APPLY TOPICALLY TO AFFECTED AREA 3 TIMES A DAY. SPRINKLE OVER AFFECTED AREA. 15 g 2 12/15/2016 Active Blood Glucose Monitoring Suppl ([employer] SYSTEM) w/Device KIT Twice daily. Dx E 11.9 1 Kit 0 12/25/2017 Active Glucose Blood (MiSiedo[employer]CH ULTRA BLUE) STRPIndications:Type 2 diabetes mellitus with hemoglobin A1c goal of less than 7.0% ([facility]) Check BS twice daily E11.9 100 [...] both eyes, mild stage 04/02/2022 History of [place] (myocardial infarction) 04/02/2022 Neutropenia 04/02/2022 Last Assessment [...] osteoporosis wit hout current pathological fracture 06/08/2020 [facility] current use of therapeutic drug 2019 Chronic right-sided heart failure 11/03/2019 Major depressive disorder, r ecurrent episode, in partial remission 11/03/2019 Last Assessment & Plan: Managed well with Cymbalta 60 mg daily Gastroesophageal reflux disease without esophagi tis 11/03/2019 Last Assessment & Plan: Managed with pantoprazole 40 mg daily Coronary artery disease invo lving [place] coronary artery of [place] heart without angina pectoris 11/03/2019 Last Assessment [...] ICD-10 update of inactive term LOC PRIM [id number] 04/12/2003 0810/2016 PURE HYPERCHOLESTEROLEM 12/27/200107/16 Asthma with [...] moderate 12/05/2014 CAD (coronary artery disease ), [place] coronary artery 02/24/2022 Overview: duplicate documented as of this encounter (statuses as of 09/05/2023) Immunizations Name Administration Dates Next Due COVID-19 mRNA, LNP-s, No Pre serve, 2-Dose Series (Moderna) 05/06/2021,01/31/2021,01/02/2021 COVID-19, LNP-s, No Preserve , Pete-sucrose, Ages 12+ ([email or web address]) 03/26/2022 COVID-19, mRNA, LNP-s, PF, B ooster, [...] encounter Miscellaneous Notes * Telephone Encounter - Mildred Meza DO [...] 3:10 PM EDT Office Visit Family Medicine [address] [place] [phone] [address] [place] [address] Health Maintenance Due Date Last Done Comments [...] 04/12/2020, Additional history exists GFR 11/25/2023 05/27/2023, 09/2022, 01/12/2023, Additional history exists HbA1c 01/09/2024 07/10/2023, 12/13, 06/10/2022, Additional history exists Albumin/Creatinine Ratio 04/08/2024 023, 04/15/2022, 06/12/2021, Additional history exists Depression Screening 04/08/2024 04/08/2023 Diabetic Foot Exam 04/08/2024 04/08/2023, 0 06/10/2022, 06/12/2021, Additional history exists CKD HGB USE SMARTSET 93071 07/10/202407/10, 07/10/2023, 05/27/2023, Additional history exists CKD PHOS USE SMARTSET 34355 07/10/202406/15, 04/15/2022, 03/12/2021, Additional history exists O2 ASSESSMENT COMPLETED IN PAST YEAR FOR COPD 07/10/2024 07/10/2023 DXA Scan 05/04/2025 05/04/2023, 03/14, 01/18/2013 Pneumococcal Vaccine: 65+ Years Completed 03/05/2017, 06/28/2015, 11/25/2011, Additional history exists Fecal Occult Blood Test Discontinued 09/23/19, 08/06/2018, 02/21/2004 VITAMIN D LEVEL ONCE IN A LIFETIME-USE SMARTSET# 40031 Completed 10/18/2020, 03/06/2020, 03/26/2018, Additional history exists [...] this encounter Medical Devices Implanted Type Area Bug Trimmer Device Identifier Shelf Expiration Date Model / Serial / Lot Lens 19.5 Sn60wf - [id number] - [id number] Implanted:Qty: 1 on 11/21/2016 by Faraz Jeffers MD at [facility] Left: Eye RAMÓN : SURGICAL 05/14/2021 SN60WF.1 95 / [id number] 2 / Lens 19.5 Sn60wf - [id number] - [id number] Implanted:Qty: 1 on 04/22/2019 by Faraz Jeffers MD at OR [facility] Right: Eye RAMÓN : SURGICAL 07/14/2023 SN60WF.195 / [id number] / documented as of this encounter [...] and were consensually agreed upon. Care Teams Supervisor [employer] [place] Rep[employer] Relationship Specialty Start Date End Date Leni Moyer DO [address] [place] [address] [place] [address] PCP - General Internal Medicine 11/18/17 documented as of this encounter
--- OUTSIDE RECORDS SUMMARY | 2023-09-05 18:39 | External Medical Summary | Summary of Care ---
Author Name Unknown Organization [facility] Address [address] [place] [address] Phone [phone] Care Team Providers Care Ophthalmic Medical Technician Name Role Phone Leni Moyer Primary Care Provider [phone] Encounter Details Date Type Department Care Team (Late st Contact Info) Description 08/04/2023 Population Health External Data Unspecified Department Allergies Active Allergy Reactions Criticality Noted Date Comments Ciprofloxacin Bleeding High 05/27/2023 And rash Influenza Virus Vac Live Quad High 06/12/2021 2 years ago, flown to [facility] Methotrexate 08/19/2013 pneumonitis Other Allergy (See Comments) Rash 012 Insecticides cause breathing problems Penicillins Hives 02/01/2001 Ranitidine Rash 07/14/2001 documented as of this encounter (statuses as of 08/04/2023) Medications Medication Sig Dispensed Refills Start Date End Date Status ONETOUCH ULTRASOFT LANCETS MISC Check BS twice daily. E 11.9 1 Box Dosing Unit 11 12/15/2016 Active Nystatin (NYSTOP) 152514 UNIT/GM powderIndications:Cu taneous candidiasis APPLY TOPICALLY TO AFFECTED AREA 3 TIMES A DAY. SPRINKLE OVER AFFECTED AREA. 15 g 2 12/15/2016 Active Blood Glucose Monitoring Suppl (ONETOUCH ULTRA SYSTEM) w/Device KIT Twice daily. Dx E 11.9 1 Kit 0 12/25/2017 Active Glucose Blood (ONETOUCH ULTRA BLUE) STRPIndications:Type 2 diabetes mellitus with hemoglobin A1c goal of less than 7.0% ([facility]) Check BS twice daily E11.9 100 Strip [...] at bedtime. 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 2019 Chronic right-sided heart failure 11/03/2019 Major depressive disorder, r ecurrent episode, in partial remission 11/03/2019 Last Assessment & Plan: Managed well with Cymbalta 60 mg daily Gastroesophageal reflux disease without esophagi tis 11/03/2019 Last Assessment & Plan: Managed with pantoprazole 40 mg daily Coronary artery disease invo lving [place] coronary artery of [place] heart without angina pectoris 11/03/2019 Last Assessment [...] as of this encounter (statuses as of 08/04/2023) Resolved Problems Problem Noted Date Diagnosed Date [...] ICD-10 update of inactive term LOC PRIM [id number] 04/12/2003 08/10/2016 PURE HYPERCHOLESTEROLEM 12/27/200107/16 Asthma with severity to [...] moderate 12/05/2014 CAD (coronary artery disease ), [place] coronary artery 02/24/2022 Overview: duplicate documented as of this encounter (statuses as of 08/04/2023) Immunizations Name Administration Dates Next Due COVID-19 [...] 08/10/2023 10:40 AM EST Office Visit Rheumatology [address] [place] [phone] Brandon Lewis MD [facility] [place] [address] 01/29/2024 3:10 PM EDT Office Visit Family Medicine [address] [place] [phone] Leni [address] [place] [address] Health Maintenance Due Date Last Done Comments [...] Additional history exists CKD HGB USE SMARTSET 15044 07/10/202407/10, 07/10/2023, 05/27/2023, Additional history exists CKD PHOS USE SMARTSET 86547 07/10/202406/15, 04/15/2022, 03/12/2021, Additional history exists O2 ASSESSMENT COMPLETED IN PAST YEAR FOR COPD 07/10/2024 07/10/2023 DXA Scan 05/04/2025 05/04/2023, 03/14, 01/18/2013 Pneumococcal Vaccine: 65+ Years Completed 03/05/2017, 06/28/2015, 11/25/2011, Additional history exists Fecal Occult Blood Test Discontinued 09/23/19, 08/06/2018, 02/21/2004 VITAMIN D LEVEL ONCE IN A LIFETIME-USE SMARTSET# 57097 Completed 10/18/2020, 03/06/2020, 03/26/2018, Additional history exists [...] this encounter Medical Devices Implanted Type Area Assistant Counsel Device Identifier Shelf Expiration Date Model / Serial / Lot Lens 19.5 Sn60wf - [id number] - [id number] Implanted:Qty: 1 on 11/21/2016 by Faraz Jeffers MD at OR [facility] Left: Eye RAMÓN : SURGICAL 05/14/2021 SN60WF.1 95 / [id number] 2 / Lens 19.5 Sn60wf - [id number] - [id number] Implanted:Qty: 1 on 04/22/2019 by Faraz Jeffers MD at OR [facility] Right: Eye RAMÓN : SURGICAL 07/14/2023 SN60WF.195 / [id number] / documented as of this encounter [...] and were consensually agreed upon. Care Teams Ophthalmic Medical Technician Relationship Specialty Start Date End Date Leni Moyer DO [address] [place] [address] [place] [phone] PCP - General Internal Medicine 11/18/17 documented as of this encounter
--- OUTSIDE RECORDS SUMMARY | 2023-09-05 18:39 | External Medical Summary | Summary of Care ---
Author Name Unknown Organization [facility] Address [address] [facility] [place] [address] Phone [phone] Care Team Providers Care Nursery Nurse Name Role Phone Leni Moyer Primary Care Provider Reason for Visit * Reason Comments Outpatient Testing Encounter Details Date Type Department Care Team (Late st Contact Info) Description 07/14/2023 9:30 AM EDT Laboratory Laboratory [address] [place] [phone] , Specimen Drop Off [address] [place] [address] H/O Clostridium difficile infection Allergies Active Allergy Reactions Criticality Noted Date Comments Ciprofloxacin Bleeding High 05/27/2023 And rash Influenza Virus Vac Live Quad High 06/12/2021 2 years ago, flown to [facility] Methotrexate 08/19/2013 pneumonitis Other Allergy (See Comments) Rash 012 Insecticides cause breathing problems Penicillins Hives 02/01/2001 Ranitidine Rash 07/14/2001 documented as of this encounter (statuses as of 07/20/2023) Medications Medication Sig Dispensed Refills Start Date End Date Status ONETOUCH ULTRASOFT LANCETS MISC Check BS twice daily. E 11.9 1 Box Dosing Unit 11 12/15/2016 Active Nystatin (NYSTOP) 360108 UNIT/GM powderIndications:Cu taneous candidiasis APPLY TOPICALLY TO AFFECTED AREA 3 TIMES A DAY. SPRINKLE OVER AFFECTED AREA. 15 g 2 12/15/2016 Active Blood Glucose Monitoring Suppl ([place] ULTRA SYSTEM) w/Device KIT Twice daily. Dx E 11.9 1 Kit 0 12/25/2017 Active Glucose Blood ([employer] Media[employer]CH ULTRA BLUE) STRPIndications:Type 2 diabetes mellitus with hemoglobin A1c goal of less than 7.0% ([facility]) Check BS twice daily E11.9 100 Strip [...] the morning. 100 Tablet 3 06/15/2023 Active Hydroxychloroquine Sulfate 200 MG Oral Tablet (Plaquenil) Take 1 Tablet by mouth at bedtime. 30 Tablet 0 06/23/2023 Active Vancomycin HCl 125 MG Oral Capsule [...] small wheelchair. 1 Each 0 07/10/2023 Active documented as of this encounter (statuses as of 07/20/2023) Active Problems Problem Noted Date Diagnosed Date FUO (fever of unknown origin) 07/10/2023 Polyneuropathy associated with underlying diseas e 10/15/2022 Paroxysmal atrial fibrillation 10/15/2022 History of 2019 novel coronavirus disease (COVID -19) 09/18/2022 DNR (do not resuscitate) 09/17/2022 H/O Clostridium difficile infection 2022 Primary open angle glaucoma (POAG) of both eyes, mild stage 04/02/2022 History of [place] (myocardial infarction) 04/02/2022 Neutropenia 04/02/2022 Last Assessment [...] osteoporosis wit hout 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 Chronic right-sided heart failure 11/03/2019 Major depressive disorder, r ecurrent episode, in partial remission 11/03/2019 Last Assessment & Plan: Managed well with Cymbalta 60 mg daily Gastroesophageal reflux disease without esophagi tis 11/03/2019 Last Assessment & Plan: Managed with pantoprazole 40 mg daily Coronary artery disease invo lving [place] coronary artery of [place] heart without angina pectoris 11/03/2019 Last Assessment [...] as of this encounter (statuses as of 07/20/2023) Resolved Problems Problem Noted Date Diagnosed Date [...] ICD-10 update of inactive term LOC PRIM [id number] 04/12/2003 0810/2016 PURE HYPERCHOLESTEROLEM 12/27/200107/16 Asthma with [...] moderate 12/05/2014 CAD (coronary artery disease ), [place] coronary artery 02/24/2022 Overview: duplicate documented as of this encounter (statuses as of 07/20/2023) Immunizations Name Administration Dates Next Due COVID-19 mRNA, LNP-s, No Pre serve, 2-Dose Series (Moderna) 05/06/2021,01/31/2021,01/02/2021 COVID-19, LNP-s, No Preserve , Pete-sucrose, Ages 12+ ([employer]) 03/26/2022 COVID-19, mRNA, LNP-s, PF, B ooster, [...] 08/10/2023 10:40 AM EST Office Visit Rheumatology [address] [place] [phone] Brandon Lewis MD [address] [place] [address] [place] [address] 01/29/2024 3:10 PM EDT Office Visit Family Medicine [address] [place] [phone] [place] [address] Health Maintenance Due Date Last Done Comments [...] Additional history exists CKD HGB USE SMARTSET 25909 07/10/202407/10, 07/10/2023, 05/27/2023, Additional history exists CKD PHOS USE SMARTSET 59987 07/10/202406/15, 04/15/2022, 03/12/2021, Additional history exists O2 ASSESSMENT COMPLETED IN PAST YEAR FOR COPD 07/10/2024 07/10/2023 DXA Scan 05/04/2025 05/04/2023, 03/14, 01/18/2013 Pneumococcal Vaccine: 65+ Years Completed 03/05/2017, 06/28/2015, 11/25/2011, Additional history exists Fecal Occult Blood Test Discontinued 09/23/19, 08/06/2018, 02/21/2004 VITAMIN D LEVEL ONCE IN A LIFETIME-USE SMARTSET# 92269 Completed 10/18/2020, 03/06/2020, 03/26/2018, Additional history exists [...] this encounter Medical Devices Implanted Type Area Cylinder Head Assembler Device Identifier Shelf Expiration Date Model / Serial / Lot Lens 19.5 Sn60wf - [id number] - [id number] Implanted:Qty: 1 on 11/21/2016 by Faraz Jeffers MD at OR [facility] Left: Eye RAMÓN : SURGICAL 05/14/2021 SN60WF.1 95 / [id number] 2 / Lens 19.5 Sn60wf - [id number] - [id number] Implanted:Qty: 1 on 04/22/2019 by Faraz Jeffers MD at OR [facility] Right: Eye RAMÓN : SURGICAL 07/14/2023 SN60WF.195 / [id number] / documented as of this encounter Procedures Procedure Name Priority Date/Time Associated Diagnosis Comments CLOSTRIDIUM DIFFICILE, PCR Routine 07/14/2023 9:26 AM EDT H/O Clostridium difficile infection documented in this encounter Results * CLOSTRIDIUM DIFFICILE, PCR (07/14/2023 9:26 AM EDT) Stool Consistency Semi-liquid 07/14/2023 2:40 PM EDT [facility] Clostridium difficile Result Negative. No C. difficile toxin B gene DNA detected by PCR (Amplified Probe). Negative 07/14/2023 2:40 PM EDT [facility] Stool Stool specimen / Unknown Non-blood Collection / Unknown 07/14/2023 9:26 AM EDT 07/14/2023 9:26 AM EDT Leni Moyer DO LAB MICRO - GENERAL ORDERABLES [facility] [address] [place] [address] documented in this encounter Visit Diagnoses Diagnosis H/O Clostridium difficile infection Personal history of other infectious and parasitic disease documented in this encounter Additional Health Concerns Infection Onset [...] and were consensually agreed upon. Care Teams Nursery Nurse Relationship Specialty Start Date End Date Leni Moyer DO [address] [place] [address] [place] [address] PCP - General Internal Medicine 11/18/17 documented as of this encounter
--- OUTSIDE RECORDS SUMMARY | 2023-09-05 18:39 | External Medical Summary | Summary of Care ---
Author Name Unknown Organization [facility] [address] [address] Phone [phone] Care Team Providers Care Marketing Campaign Analyst Name Role Phone Leni Moyer DO Primary Care Provider Reason for Visit * Reason Onset Date Comments Pre Cert/Prior Auth 07/10/2023 Encounter Details Date Type Department Care Team (Late st Contact Info) Description 07/10/2023 Telephone Family Medicine [address] [phone] Leni Moyer DO [address] [place], [place] [address] [address] Pre Cert/Prior Auth (/) Allergies Active Allergy Reactions Criticality Noted Date Comments Ciprofloxacin Bleeding High 05/27/2023 And rash Influenza Virus Vac Live Quad High 06/12/2021 2 years ago, flown to [facility] Methotrexate 08/19/2013 pneumonitis Other Allergy (See Comments) Rash 012 Insecticides cause breathing problems Penicillins Hives 02/01/2001 Ranitidine Rash 07/14/2001 documented as of this encounter (statuses as of 08/25/2023) Medications Medication Sig Dispensed Refills Start Date End Date Status ONETOUCH ULTRASOFT LANCETS MISC Check BS twice daily. E 11.9 1 Box Dosing Unit 11 7 Active Nystatin (NYSTOP) 629786 UNIT/GM powderIndications:C utaneous candidiasis APPLY TOPICALLY TO AFFECTED AREA 3 TIMES A DAY. SPRINKLE OVER AFFECTED AREA. 15 g 2 7 Active Blood Glucose Monitoring Suppl (RentBits SYSTEM) w/Device KIT Twice daily. Dx E 11.9 1 Kit 0 8 Active Glucose Blood (Shift NetworkTOUCH ULTRA BLUE) STRPIndications:Typ e 2 diabetes mellitus with hemoglobin A1c goal of less than 7.0% ([facility]) Check BS twice daily E11.9 100 Strip 11 8 Active Respiratory Therapy Supplies (NEBULIZER/TUBING/M OUTHPIECE) KIT [...] 1 Packet before bedtime. 60 Each 0 3 Active Fluticasone Furoate-Vilanterol 200-25 MCG/ACT Inhalation Aerosol Powder Breath Activated (BREO ellipta)Indications :Mild persistent asthma without complication Inhale 1 Puff by mouth in the morning. Rinse mouth after use. 180 Blister Dosing Unit 3 3 Active Ferrous Sulfate 325 (65 Fe) MG Oral Tablet (Feosol) Take 1 Tablet by mouth daily with breakfast. 30 Tablet 0 3 Active Vitamin D3 50 MCG (2000 UT) Oral Capsule Take 1 Capsule by mouth in the morning. 30 Capsule 0 3 Active Albuterol Sulfate HFA 108 (90 Base) MCG/ACT Inhalation Aerosol SolutionIndications :Moderate persistent asthma without complication Inhale 2 Puffs by mouth every 4 hours as needed for Cough, Shortness of Breath or Wheezing. 18 g 2 3 Active B-12 1000 MCG Oral CapsuleIndications: B12 deficiency 1999mcg Thursday, Thursday, and Thursday 30 Capsule 0 3 Active Centrum Silver 50+Women Oral Tablet Take 1 Tablet by mouth in the morning. 30 Tablet 0 3 Active Levalbuterol HCl 1.25 MG/3ML Inhalation Nebulization Solution (Xopenex) via nebulizer every 4 hours as needed for SOB or cough and wheezing Dx: Asthma J45.30 72 mL 3 3 Active Ocuvite-Lutein Oral Capsule Take 1 Capsule by mouth in the morning. 30 Capsule 0 3 Active predniSONE 5 MG Oral Tablet (Deltasone) TAKE ONE TABLET BY MOUTH EVERY DAY 90 Tablet 1 3 03/02/20 24 Active Folic Acid 1 MG Oral TabletIndications:R heumatoid arthritis (HCC) Take 1 Tablet by mouth daily. 100 Tablet 2 3 Active Latanoprost 0.005 % Ophthalmic Solution (Xalatan)Indication s:Primary open angle glaucoma of both eyes, mild stage INSTILL 1 DROP INTO BOTH EYES AT BEDTIME 7.5 mL 0 3 Active DULoxetine HCl 30 MG Oral Capsule Delayed Release Particles (Cymbalta)Indicatio ns:Generalized osteoarthritis of multiple sites,Degeneration of lumbosacral intervertebral disc,Adjustment disorder with anxious mood Take 2 Capsules by mouth daily. 200 Capsule 1 3 Active Thiamine HCl 100 MG Oral Tablet (vitamin B-1)Indications:Thi amine deficiency TAKE 1/2 TABLET BY MOUTH DAILY. 45 Tablet 1 3 Active Rosuvastatin Calcium 20 MG Oral Tablet (Crestor) Take 1 Tablet by mouth in the morning. 90 Tablet 3 3 Active Additional Information Patient taking differently:20 mg OralHS, Informant: At Discharge, Reported on 05/14/2023 Solifenacin Succinate 10 MG Oral Tablet (VESIcare) TAKE ONE TABLET BY MOUTH EVERY DAY IN THE MORNING 90 Tablet 3 3 04/29/20 24 Active Albuterol Sulfate (2.5 MG/3ML) 0.083% Inhalation Nebulization Solution Inhale 1 Vial via nebulizer. Use as directed, if needed, for shortness of breath or wheezing 0 Active Triamcinolone Acetonide 0.1 % External Cream (Aristocort)Indicat ions:Rash and nonspecific skin eruption Apply topically to affected area 2 times a day. To affected area. 80 g 1 3 Active Montelukast Sodium 10 MG Oral Tablet (Singulair) Take 1 Tablet by mouth in the morning. 100 Tablet 3 3 Active Pantoprazole Sodium 40 MG Oral Tablet Delayed Release (Protonix)Indicatio ns:Gastroesophageal reflux disease, unspecified whether esophagitis present take 1 tablet by mouth daily 30 to 60 minutes before the first meal of the day 100 Tablet 3 3 Active Clopidogrel Bisulfate 75 MG Oral Tablet (pLAVix) Take 1 Tablet by mouth in the morning. 100 Tablet 3 3 Active Vancomycin HCl 125 MG Oral Capsule (Vancocin) Take 1 Capsule by mouth every 6 hours. 360 Capsule 0 3 Active Metoprolol Succinate ER 25 MG Oral Tablet Extended Release 24 Hour (toPROL XL) Take 1 Tablet by mouth in the morning. 100 Tablet 1 3 Active amLODIPine Besylate 5 MG Oral Tablet (Norvasc) Take 1 Tablet by mouth in the morning. 100 Tablet 1 3 Active WheelchairIndicatio ns:Rheumatoid arthritis involving multiple sites with positive rheumatoid factor (HCC),Generalized weakness,Personal history of fall 1 small wheelchair. 1 Each 0 3 Active Hydroxychloroquine Sulfate 200 MG Oral Tablet (Plaquenil) Take 1 Tablet by mouth at bedtime. 30 Tablet 0 3 07/21/20 23 Discontinue d(Refill) Vowst Oral Capsule (Fecal Microb Spores, Live-brpk)Indicatio ns:H/O Clostridium difficile infection Take 4 Capsules by mouth in the morning for 3 days. 12 Capsule 0 3 07/13/20 23 MEDICAL INSTRUCTIONS Use as directed. Drink 296 mL (10 oz) magnesium citrate on the day before and at least 8 hours prior to taking the first dose of VOWST. Do not eat or drink except for small amount of water for at least 8 hours prior to taking the first dose. 1 Each 1 3 08/11/20 23 documented as of this encounter (statuses as of 08/25/2023) Active Problems Problem Noted Date Diagnosed Date FUO (fever of unknown origin) 07/10/2023 Polyneuropathy associated with underlying diseas e 10/15/2022 Paroxysmal atrial fibrillation 10/15/2022 History of 2019 novel coronavirus disease (COVID -19) 09/18/2022 DNR (do not resuscitate) 09/17/2022 H/O Clostridium difficile infection 2022 Primary open angle glaucoma (POAG) of both eyes, mild stage 04/02/2022 History of [place] (myocardial infarction) 04/02/2022 Neutropenia 04/02/2022 Last Assessment [...] osteoporosis wit hout current pathological fracture 06/08/2020 [employer] continuous churn current use of therapeutic drug 2019 Chronic right-sided heart failure 11/03/2019 Major depressive disorder, r ecurrent episode, in partial remission 11/03/2019 Last Assessment & Plan: Managed well with Cymbalta 60 mg daily Gastroesophageal reflux disease without esophagi tis 11/03/2019 Last Assessment & Plan: Managed with pantoprazole 40 mg daily Coronary artery disease invo lving [place] coronary artery of [place] heart without angina pectoris 11/03/2019 Last Assessment [...] as of this encounter (statuses as of 08/25/2023) Resolved Problems Problem Noted Date Diagnosed Date [...] 140/80 08/01/2014 12/05/2014 Persistent insomnia 03/29/2013 12/27/19 Rheumatoid arthritis 11/25/2011 016 Asthma, moderate persistent [...] ICD-10 update of inactive term LOC PRIM [id number] 04/12/200310/2016 PURE HYPERCHOLESTEROLEM 12/27/200107/16 Asthma with severity [...] moderate 12/05/2014 CAD (coronary artery disease ), [place] coronary artery 02/24/2022 Overview: duplicate documented as of this encounter (statuses as of 08/25/2023) Immunizations Name Administration Dates Next Due COVID-19 [...] encounter Miscellaneous Notes * Telephone Encounter - Toshia Milan LPN - 07/15/2023 4:16 PM EDT Medical instructions pended for VOWST prep. Also see pended letter for medical necessity if you're interested in this to see if that helps. If you want to fill in the parts I wasn't sure how to answer, you should be able to just F2 through it. * Telephone Encounter - Leni Moyer DO - 07/10/2023 4:20 PM EDT Please work on prior auth/pharma assistance for VOWST. documented in this encounter Plan of Treatment Upcoming Encounters Date Type Department Care Team (Late st Contact Info) Description 01/29/2024 3:10 PM EDT Office Visit Family Medicine [address] [phone] Leni Moyer DO [address] [place] [address] [place] [address] Health Maintenance Due Date [...] 04/12/2020, Additional history exists GFR 11/25/2023 05/27/2023, 090 09/2022, 01/12/2023, Additional history exists HbA1c 01/09/2024 07/10/2023, 12/13, 06/10/2022, Additional history exists Albumin/Creatinine Ratio 04/08/2024 023, 04/15/2022, 06/12/2021, Additional history exists Depression Screening 04/08/2024 04/08/2023 Diabetic Foot Exam 04/08/2024 04/08/2023, 0 06/10/2022, 06/12/2021, Additional history exists CKD HGB USE SMARTSET 51551 07/10/202407/10, 07/10/2023, 05/27/2023, Additional history exists CKD PHOS USE SMARTSET 07194 07/10/202406/15, 04/15/2022, 03/12/2021, Additional history exists O2 ASSESSMENT COMPLETED IN PAST YEAR FOR COPD 07/10/2024 07/10/2023 DXA Scan 05/04/2025 05/04/2023, 03/14, 01/18/2013 Pneumococcal Vaccine: 65+ Years Completed 03/05/2017, 06/28/2015, 11/25/2011, Additional history exists Fecal Occult Blood Test Discontinued 09/23/19, 08/06/2018, 02/21/2004 VITAMIN D LEVEL ONCE IN A LIFETIME-USE SMARTSET# [id number] Completed 10/18/2020, 03/06/2020, 03/26/2018, Additional history exists [...] this encounter Medical Devices Implanted Type Area Retail Beauty Specialist Device Identifier Shelf Expiration Date Model / Serial / Lot Lens 19.5 Sn60wf - [id number] - [id number] Implanted:Qty: 1 on 11/21/2016 by Faraz Jeffers MD at [facility] Left: Eye RAMÓN : SURGICAL 05/14/2021 SN60WF.1 95 / [id number] 2 / Lens 19.5 Sn60wf - [id number] - [id number] Implanted:Qty: 1 on 04/22/2019 by Faraz Jeffers MD at [facility] Right: Eye RAMÓN : SURGICAL 07/14/2023 SN60WF.195 / [id number] / documented as of this encounter Visit Diagnoses Diagnosis H/O Clostridium [...] and were consensually agreed upon. Care Teams Marketing Campaign Analyst Relationship Specialty Start Date End Date Leni Moyer DO [address] [place] [address] [place] [phone] PCP - General Internal Medicine 11/18/17 documented as of this encounter
--- OUTSIDE RECORDS SUMMARY | 2023-09-05 18:39 | External Medical Summary | Summary of Care ---
Author Name Unknown Organization [facility] Address [address] [address] [address] Phone [phone] Care Team Providers Care Cigarette Package Examiner Name Role Phone Leni Moyer DO Primary Care Provider [phone] Reason for Visit * Reason Onset Date Comments Pre Cert/Prior Auth 07/10/2023 Encounter Details Date Type Department Care Team (Late st Contact Info) Description 07/10/2023 Telephone Family Medicine [address] [phone] Leni Moyer DO [address] [place], [place] [address] [address] Pre Cert/Prior Auth (/) Allergies Active Allergy Reactions Criticality Noted Date Comments Ciprofloxacin Bleeding High 05/27/2023 And rash Influenza Virus Vac Live Quad High 06/12/2021 2 years ago, flown to [facility] Methotrexate 08/19/2013 pneumonitis Other Allergy (See Comments) Rash 012 Insecticides cause breathing problems Penicillins Hives 02/01/2001 Ranitidine Rash 07/14/2001 documented as of this encounter (statuses as of 08/10/2023) Medications Medication Sig Dispensed Refills Start Date End Date Status ONETOUCH ULTRASOFT LANCETS MISC Check BS twice daily. E 11.9 1 Box Dosing Unit 11 7 Active Nystatin (NYSTOP) 257798 UNIT/GM powderIndications:C utaneous candidiasis APPLY TOPICALLY TO AFFECTED AREA 3 TIMES A DAY. SPRINKLE OVER AFFECTED AREA. 15 g 2 7 Active Blood Glucose Monitoring Suppl ([employer] SYSTEM) w/Device KIT Twice daily. Dx E 11.9 1 Kit 0 8 Active Glucose Blood (TrochetTOUCH ULTRA BLUE) STRPIndications:Typ e 2 diabetes mellitus with hemoglobin A1c goal of less than 7.0% ([facility]) Check BS twice daily E11.9 [...] small wheelchair. 1 Each 0 3 Active MEDICAL INSTRUCTIONS Use as directed. Drink 296 mL (10 oz) magnesium citrate on the day before and at least 8 hours prior to taking the first dose of VOWST. Do not eat or drink except for small amount of water for at least 8 hours prior to taking the first dose. 1 Each 1 3 08/11/20 23 Active Hydroxychloroquine Sulfate 200 MG Oral Tablet (Plaquenil) Take 1 Tablet by mouth at bedtime. 30 Tablet 0 3 07/21/20 23 Discontinue d(Refill) Vowst Oral Capsule (Fecal Microb Spores, Live-brpk)Indicatio ns:H/O Clostridium difficile infection Take 4 Capsules by mouth in the morning for 3 days. 12 Capsule 0 3 07/13/20 23 documented as of this encounter (statuses as of 08/10/2023) Active Problems Problem Noted Date Diagnosed Date FUO (fever of unknown origin) 07/10/2023 Polyneuropathy associated with underlying diseas e 10/15/2022 Paroxysmal atrial fibrillation 10/15/2022 History of 2019 novel coronavirus disease (COVID -19) 09/18/2022 DNR (do not resuscitate) 09/17/2022 H/O Clostridium difficile infection 2022 Primary open angle glaucoma (POAG) of both eyes, mild stage 04/02/2022 History of [place] (myocardial infarction) 04/02/2022 Neutropenia 04/02/2022 Last Assessment [...] osteoporosis wit hout current pathological fracture 06/08/2020 group home current use of therapeutic drug 2019 Chronic right-sided heart failure 11/03/2019 Major depressive disorder, r ecurrent episode, in partial remission 11/03/2019 Last Assessment & Plan: Managed well with Cymbalta 60 mg daily Gastroesophageal reflux disease without esophagi tis 11/03/2019 Last Assessment & Plan: Managed with pantoprazole 40 mg daily Coronary artery disease invo lving [place] coronary artery of [place] heart without angina pectoris 11/03/2019 Last Assessment [...] as of this encounter (statuses as of 08/10/2023) Resolved Problems Problem Noted Date Diagnosed Date [...] ICD-10 update of inactive term LOC PRIM [id number] 04/12/200310/2016 PURE HYPERCHOLESTEROLEM 12/27/200107/16 Asthma with severity [...] moderate 12/05/2014 CAD (coronary artery disease ), [place] coronary artery 02/24/2022 Overview: duplicate documented as of this encounter (statuses as of 08/10/2023) Immunizations Name Administration Dates Next Due COVID-19 [...] 3:10 PM EDT Office Visit Family Medicine [address] [place] [phone] Leni Moyer DO [address] [place] [address] [place] [address] Health Maintenance Due Date [...] 04/12/2020, Additional history exists GFR 11/25/2023 05/27/2023, 2022, 01/12/2023, Additional history exists HbA1c 01/09/2024 07/10/2023, 12/13, 06/10/2022, Additional history exists Albumin/Creatinine Ratio 04/08/2024 023, 04/15/2022, 06/12/2021, Additional history exists Depression Screening 04/08/2024 04/08/2023 Diabetic Foot Exam 04/08/2024 04/08/2023, 0 06/10/2022, 06/12/2021, Additional history exists CKD HGB USE SMARTSET 34368 07/10/202407/10, 07/10/2023, 05/27/2023, Additional history exists CKD PHOS USE SMARTSET 27373 07/10/202406/15, 04/15/2022, 03/12/2021, Additional history exists O2 ASSESSMENT COMPLETED IN PAST YEAR FOR COPD 07/10/2024 07/10/2023 DXA Scan 05/04/2025 05/04/2023, 03/14, 01/18/2013 Pneumococcal Vaccine: 65+ Years Completed 03/05/2017, 06/28/2015, 11/25/2011, Additional history exists Fecal Occult Blood Test Discontinued 09/23/19, 08/06/2018, 02/21/2004 VITAMIN D LEVEL ONCE IN A LIFETIME-USE SMARTSET# [id number] Completed 10/18/2020, 03/06/2020, 03/26/2018, Additional history exists [...] this encounter Medical Devices Implanted Type Area Embedded Systems Developer Device Identifier Shelf Expiration Date Model / Serial / Lot Lens 19.5 Sn60wf - [id number] - [id number] Implanted:Qty: 1 on 11/21/2016 by Faraz Jeffers MD at OR [facility] Left: Eye RAMÓN : SURGICAL 05/14/2021 SN60WF.1 95 / [id number] 2 / Lens 19.5 Sn60wf - [id number] - [id number] Implanted:Qty: 1 on 04/22/2019 by Faraz Jeffers MD at OR [facility] Right: Eye RAMÓN : SURGICAL 07/14/2023 SN60WF.195 / [id number] / documented as of this encounter [...] and were consensually agreed upon. Care Teams Cigarette Package Examiner Relationship Specialty Start Date End Date Leni Moyer DO [address] [place] [address] [place] [id number] PCP - General Internal Medicine 11/18/17 documented as of this encounter
--- OUTSIDE RECORDS SUMMARY | 2023-09-05 18:39 | External Medical Summary | Summary of Care ---
Author Name Unknown Organization [facility] Address [address] [facility] [address] Phone [phone] Care Team Providers Care Full Stack Developer Name Role Phone Leni Moyer DO Primary Care Provider Reason for Visit * Reason Onset Date Comments Pre Cert/Prior Auth 07/10/2023 Encounter Details Date Type Department Care Team (Late st Contact Info) Description 07/10/2023 Telephone Family Medicine [address] [phone] Leni Moyer DO [address] [place], [place] [address] [address] Pre Cert/Prior Auth (/) Allergies Active Allergy Reactions Criticality Noted Date Comments Ciprofloxacin Bleeding High 05/27/2023 And rash Influenza Virus Vac Live Quad High 06/12/2021 2 years ago, flown to [facility] Methotrexate 08/19/2013 pneumonitis Other Allergy (See Comments) Rash 012 Insecticides cause breathing problems Penicillins Hives 02/01/2001 Ranitidine Rash 07/14/2001 documented as of this encounter (statuses as of 08/10/2023) Medications Medication Sig Dispensed Refills Start Date End Date Status ONETOUCH ULTRASOFT LANCETS MISC Check BS twice daily. E 11.9 1 Box Dosing Unit 11 7 Active Nystatin (NYSTOP) 663848 UNIT/GM powderIndications:C utaneous candidiasis APPLY TOPICALLY TO AFFECTED AREA 3 TIMES A DAY. SPRINKLE OVER AFFECTED AREA. 15 g 2 7 Active Blood Glucose Monitoring Suppl (ChartCube SYSTEM) w/Device KIT Twice daily. Dx E 11.9 1 Kit 0 8 Active Glucose Blood (Salt RightsTOUCH ULTRA BLUE) STRPIndications:Typ e 2 diabetes mellitus with hemoglobin A1c goal of less than 7.0% ([facility]) Check BS twice daily E11.9 100 Strip [...] both eyes, mild stage 04/02/2022 History of [place] (myocardial infarction) 04/02/2022 Neutropenia 04/02/2022 Last Assessment [...] osteoporosis wit hout current pathological fracture 06/08/2020 [facility] current use of therapeutic drug 2019 Chronic right-sided heart failure 11/03/2019 Major depressive disorder, r ecurrent episode, in partial remission 11/03/2019 Last Assessment & Plan: Managed well with Cymbalta 60 mg daily Gastroesophageal reflux disease without esophagi tis 11/03/2019 Last Assessment & Plan: Managed with pantoprazole 40 mg daily Coronary artery disease invo lving [place] coronary artery of [place] heart without angina pectoris 11/03/2019 Last Assessment [...] ICD-10 update of inactive term LOC PRIM [id number] 04/12/200310/2016 PURE HYPERCHOLESTEROLEM 12/27/200107/16 Asthma with severity [...] moderate 12/05/2014 CAD (coronary artery disease ), [place] coronary artery 02/24/2022 Overview: duplicate documented as [...] 3:10 PM EDT Office Visit Family Medicine [address] [place] [phone] Leni Moyer DO [address] [place] [address] [place] [address] Health Maintenance Due Date [...] Additional history exists CKD HGB USE SMARTSET 26701 07/10/202407/10, 07/10/2023, 05/27/2023, Additional history exists CKD PHOS USE SMARTSET 32885 07/10/202406/15, 04/15/2022, 03/12/2021, Additional history exists O2 ASSESSMENT COMPLETED IN PAST YEAR FOR COPD 07/10/2024 07/10/2023 DXA Scan 05/04/2025 05/04/2023, 03/14, 01/18/2013 Pneumococcal Vaccine: 65+ Years Completed 03/05/2017, 06/28/2015, 11/25/2011, Additional history exists Fecal Occult Blood Test Discontinued 09/23/19, 08/06/2018, 02/21/2004 VITAMIN D LEVEL ONCE IN A LIFETIME-USE SMARTSET# 28810 Completed 10/18/2020, 03/06/2020, 03/26/2018, Additional history exists [...] this encounter Medical Devices Implanted Type Area Suppression Crew Leader Device Identifier Shelf Expiration Date Model / Serial / Lot Lens 19.5 Sn60wf - [id number] - [id number] Implanted:Qty: 1 on 11/21/2016 by Faraz Jeffers MD at OR [facility] Left: Eye RAMÓN : SURGICAL 05/14/2021 SN60WF.1 95 / [id number] 2 / Lens 19.5 Sn60wf - [id number] - [id number] Implanted:Qty: 1 on 04/22/2019 by Faraz Jeffers MD at OR [facility] Right: Eye RAMÓN : SURGICAL 07/14/2023 SN60WF.195 / [id number] / documented as of this encounter [...] and were consensually agreed upon. Care Teams Full Stack Developer Relationship Specialty Start Date End Date Leni Moyer DO [address] [place] [address] [place] [phone] PCP - General Internal Medicine 11/18/17 documented as of this encounter
--- OUTSIDE RECORDS SUMMARY | 2023-09-05 18:40 | External Medical Summary ---
Author Name Unknown Address Unknown Organization [id number]:[facility] [place] [address] [facility] [address] Laboratory Report Ordering Provider Test Date Status MEREDITH OROZCO 07/10/2023 16:19:33 Final Observation Date Value Abnormality Reference (Units ) Status HbA1C 07/10/2023 16:19:33 7.1 Above high normal 4. 0-5.6 (%) Final The use of HbA1c to monitor glycemic status is based on normal hemoglobin and HbA composition. This test should not be used in patients with abnormal hemoglobin that affects the half life of the red blood cell or the in vivo glycation rates. Glucose, estimated average 07/10/2023 16:19:33 157 Above high normal <126 (mg/dL) Renard albright Performing Location [facility] [address] [facility] [address]
--- OUTSIDE RECORDS SUMMARY | 2023-09-05 18:40 | External Medical Summary | Summary of Care ---
Author Name Unknown Organization [facility] Address [address] [place] [address] Phone [phone] Care Team Providers Care Bottle Dealer Name Role Phone Leni Moyer DO Primary Care Provider [phone] Reason for Visit * Reason Onset Date Comments case management 06/23/2023 Encounter Details Date Type Department Care Team (Late st Contact Info) Description 06/23/2023 Credit Administration Manager Telephone [address] [phone] Yvonne Cherry RN [address] [place] [address] case management Allergies Active Allergy Reactions Criticality Noted Date Comments Ciprofloxacin Bleeding High 05/27/2023 And rash Influenza Virus Vac Live Quad High 06/12/2021 2 years ago, flown to [facility] Methotrexate 08/19/2013 pneumonitis Other Allergy (See Comments) Rash 012 Insecticides cause breathing problems Penicillins Hives 02/01/2001 Ranitidine Rash 07/14/2001 documented as of this encounter (statuses as of 07/09/2023) Medications Medication Sig Dispensed Refills Start Date End Date Status ONETOUCH ULTRASOFT LANCETS MISC Check BS twice daily. E 11.9 1 Box Dosing Unit 11 12/15/2016 Active Nystatin (NYSTOP) 691323 UNIT/GM powderIndications:C utaneous candidiasis APPLY TOPICALLY TO AFFECTED AREA 3 TIMES A DAY. SPRINKLE OVER AFFECTED AREA. 15 g 2 12/15/2016 Active Blood Glucose Monitoring Suppl (RepuCare Onsite ULTRA SYSTEM) w/Device KIT Twice daily. Dx E 11.9 1 Kit 0 12/25/2017 Active Glucose Blood (FliggoTOUCH ULTRA BLUE) STRPIndications:Typ e 2 diabetes mellitus with hemoglobin A1c goal of less than 7.0% ([facility]) Check BS twice daily E11.9 100 Strip 11 12/28/2017 Active betamethasone dipropionate (DIPROSONE) 0.05 % creamIndications:Ra sh and nonspecific skin eruption,Itching Apply topically to affected area 2 times a day. To affected area. 45 g 1 06/14/2018 Active Additional Information Patient taking differently:TopicalBID PRN, To affected area., Informant: At Discharge, Reported on 05/14/2023 Respiratory Therapy Supplies (NEBULIZER/TUBING/M OUTHPIECE) KIT 0 [...] 180 Blister Dosing Unit 3 10/01/2022 Active amLODIPine Besylate 10 MG Oral Tablet (Norvasc) Take 1 Tablet by mouth in the morning. 100 Tablet 3 10/01/2022 Active Ferrous Sulfate 325 (65 [...] B-12 1000 MCG Oral CapsuleIndications: B12 deficiency 2000mcg Thursday, Thursday, and Thursday 30 Capsule 0 10/01/2022 Active Centrum Silver 50+Women Oral Tablet Take 1 Tablet by mouth in the morning. 30 Tablet 0 10/01/2022 Active Levalbuterol HCl 1.25 MG/3ML Inhalation Nebulization Solution (Xopenex) via nebulizer every 4 hours as needed for SOB or cough and wheezing Dx: Asthma J45.30 72 mL 3 10/01/2022 Active Magnesium Oxide 400 (240 Mg) MG Oral Tablet (Mag-Ox) Take 1 Tablet by mouth in the morning and 1 Tablet before bedtime. 60 Tablet 0 10/01/2022 Active Additional Information Patient not taking.Reported on 06/03/2023 Ocuvite-Lutein Oral Capsule Take 1 Capsule by mouth in the morning. 30 Capsule 0 10/01/2022 Active Zoster Vac Recomb Adjuvanted 50 MCG/0.5ML Intramuscular Suspension Reconstituted (Shingrix) Inject 0.5 mL into a large muscle now and repeat dose in 60 to 180 days Given at [facility] 1 Each 1 12/29/2022 Active Additional Information Patient not taking.Reported on 06/03/2023 Metoprolol Succinate ER 25 MG Oral Tablet Extended Release 24 Hour (toPROL XL) TAKE ONE TABLET BY MOUTH EVERY MORNING 100 Tablet 1 03/11/2023 03/10/20 24 Active predniSONE 5 MG Oral Tablet (Deltasone) [...] shortness of breath or wheezing 0 Active amLODIPine Besylate 10 MG Oral Tablet (Norvasc) TAKE ONE TABLET BY MOUTH EVERY MORNING 100 Tablet 3 05/19/2023 05/18/20 24 Active Triamcinolone Acetonide 0.1 % External Cream [...] mouth every 6 hours. 360 Capsule 0 03/18/2023 07/01/20 23 Discontinu ed(Refill) documented as of this encounter (statuses as of 07/09/2023) Active Problems Problem Noted Date Diagnosed Date Polyneuropathy associated with underlying diseas e 10/15/2022 Paroxysmal atrial fibrillation 10/15/2022 History of 2019 novel coronavirus disease (COVID -19) 09/18/2022 DNR (do not resuscitate) 09/17/2022 H/O Clostridium difficile infection 2022 Primary open angle glaucoma (POAG) of both eyes, mild stage 04/02/2022 History of [place] (myocardial infarction) 04/02/2022 Neutropenia 04/02/2022 Last Assessment [...] osteoporosis wit hout current pathological fracture 06/08/2020 halfway current use of therapeutic drug 2019 Chronic right-sided heart failure 11/03/2019 Major depressive disorder, r ecurrent episode, in partial remission 11/03/2019 Last Assessment & Plan: Managed well with Cymbalta 60 mg daily Gastroesophageal reflux disease without esophagi tis 11/03/2019 Last Assessment & Plan: Managed with pantoprazole 40 mg daily Coronary artery disease invo lving sun[place] coronary artery of sun[place] heart without angina pectoris 11/03/2019 Last Assessment & Plan: Stable Continue BB, statin History of Clostridium difficile colitis 019 Last Assessment & Plan: No diarrhea reported Continue chronic vancomycin 125 mg daily History of rotator cuff tear 05/20/2019 Type [...] as of this encounter (statuses as of 07/09/2023) Resolved Problems Problem Noted Date Diagnosed Date [...] r due to multiple etiologies 11/03/2019 12/07/2020 Hypertensive kidney disease with chronic kidney disease [...] ICD-10 update of inactive term LOC PRIM [id number] 04/12/200310/2016 PURE HYPERCHOLESTEROLEM 12/27/200107/16 Asthma with severity [...] moderate 12/05/2014 CAD (coronary artery disease ), [place] coronary artery 02/24/2022 Overview: duplicate documented as of this encounter (statuses as of 07/09/2023) Immunizations Name Administration Dates Next Due COVID-19 [...] encounter Miscellaneous Notes * Telephone Encounter - Yvonne Cherry RN - 06/23/2023 2:42 PM EDT ROLANDO week #4, contact #2. Called and spoke with patient. Alert, oriented, pleasant. Follow up on YOHAN's report patient complaining of increase in asthma symptoms over past couple weeks. Patient reports if she lets the cats out - comes back in panting. Relieved by rest. Confirmed patient is taking her Singulair daily. Discussed use of nebulizer medications - only uses "when bad". Not often. Last use? -"yesterday". Reports she used both the albuterol and levalbuterol yesterday. Inquired how using - just breathes in an out. Advised when breathing the medication in - hold it in, or pause, to the count of 5, then breathe out. That way you get more medication. Gives it a chance to get into your lungs before you breathe it right back out. Patient verbalizes understanding and states she will try that next time. Does cough some after neb treatment. -brings up small amount of white, thick, foamy expectorant Denies any wheezing, only feels more short of breath at times. Aware this time of year, beginning of fall/janette - increases allergy symptoms Fell last week. Fell down the porch steps. Ongoing sore arm. Ongoing itchy skin. Scratches until she creates ecchymotic areas on her arms, etc. Reports she has a stock pile of anti-itch medications: benadryl cream, benadryl tabs/caps, CereVe cream, generic anti itch cream, and Calmoseptine. "They help a little bit." Asked where she is using the betamethasone oint - reports under breasts and abdominal fold, as needed. Asked about blood sugars, and that high blood sugars can increase itching of skin. -patient reports she forgot to check it again today -has not checked it recently -she will try to get back into routine of checking it Denies any other issues or needs at this time. Next planned contact is for next week. documented in this encounter Plan of Treatment Upcoming Encounters Date Type Department Care Team (Late st Contact Info) Description 07/10/2023 3:10 PM EDT Office Visit Family [address] [place] [phone] Leni Moyer [address] [place] [address] 08/10/2023 10:40 AM EST Office Visit Rheumatology [address] [place] [phone] Brandon Lewis MD [address] [employer] [place] [address] Health Maintenance Due Date Last Done Comments Alpha-1 Antitrypsin 1965 Hepatitis B (1 of 3 - Risk 3-dose series) 2007 DTaP,Tdap,and Td Vaccines (2 - Td or Tdap) 10/02/2020 10/02/2010, 10/31/2004 *BISPHONATE OR OTHER ACCEPTABLE MEDICATION NEEDED FOR OSTEOPOROSIS (REFER TO SMARTSET #1146) 06/28/2022 CKD PHOS USE SMARTSET 22882 04/15/2023 080 10/2021, 03/12/2021, 07/19/2019, Additional history exists COVID-19 Vaccine ( season) 2023 03/26/2022, 05/06/2021, 05/06/2021, Additional history exists Influenza Vaccine (FLU shot) (#1) 2023 06/14/2018, 06/22/2017, 08/12/2016, Additional history exists HbA1c 06/30/2023 12/29/2022, 05/16, 11/22/2021, Additional history exists DIABETES-EYE EXAM 07/03/2023 07/03/2022, , 04/12/2020, Additional history exists GFR 11/25/2023 05/27/2023, 0909/2022, 01/12/2023, Additional history exists Albumin/Creatinine Ratio 04/08/2024 023, 04/15/2022, 06/12/2021, Additional history exists Depression Screening 04/08/2024 04/08/2023 Diabetic Foot Exam 04/08/2024 04/08/2023, 0 06/10/2022, 06/12/2021, Additional history exists CKD HGB USE SMARTSET 46136 05/27/202405/27, 05/27/2023, 10/15/2022, Additional history exists O2 ASSESSMENT COMPLETED IN PAST YEAR FOR COPD 06/03/2024 06/03/2023 DXA Scan 05/04/2025 05/04/2023, 03/14, 01/18/2013 Pneumococcal Vaccine: 65+ Years Completed 03/05/2017, 06/28/2015, 11/25/2011, Additional history exists Fecal Occult Blood Test Discontinued 09/23/19, 08/06/2018, 02/21/2004 VITAMIN D LEVEL ONCE IN A LIFETIME-USE SMARTSET# 13769 Completed 10/18/2020, 03/06/2020, 03/26/2018, Additional history exists [...] this encounter Medical Devices Implanted Type Area Electrical Drafter Device Identifier Shelf Expiration Date Model / Serial / Lot Lens 19.5 Sn60wf - [id number] - [id number] Implanted:Qty: 1 on 11/21/2016 by Faraz Jeffers MD at OR [facility] Left: Eye RAMÓN : SURGICAL 05/14/2021 SN60WF.1 95 / [id number] 2 / Lens 19.5 Sn60wf - [id number] - [id number] Implanted:Qty: 1 on 04/22/2019 by Faraz Jeffers MD at OR [facility] Right: Eye RAMÓN : SURGICAL 07/14/2023 SN60WF.195 / [id number] / documented as of this encounter [...] and were consensually agreed upon. Care Teams Bottle Dealer Relationship Specialty Start Date End Date Leni Moyer DO [address] [place] [address] [place] [address] PCP - General Internal Medicine 11/18/17 documented as of this encounter
--- OUTSIDE RECORDS SUMMARY | 2023-09-05 18:40 | External Medical Summary | Summary of Care ---
Author Name Unknown Organization [facility] Address [address] [facility] [place] [address] Phone [phone] Care Team Providers Care Felter Tennis Balls Name Role Phone Leni Moyer Primary Care Provider [phone] Reason for Visit * Reason Comments Outpatient Testing Encounter Details Date Type Department Care Team (Late st Contact Info) Description 07/14/2023 9:30 AM EDT Laboratory Laboratory [address] [place] [phone] , Specimen Drop Off [address] [place] [address] H/O Clostridium difficile infection Allergies Active Allergy Reactions Criticality Noted Date Comments Ciprofloxacin Bleeding High 05/27/2023 And rash Influenza Virus Vac Live Quad High 06/12/2021 2 years ago, flown to [facility] Methotrexate 08/19/2013 pneumonitis Other Allergy (See Comments) Rash 012 Insecticides cause breathing problems Penicillins Hives 02/01/2001 Ranitidine Rash 07/14/2001 documented as of this encounter (statuses as of 07/14/2023) Medications Medication Sig Dispensed Refills Start Date End Date Status ONETOUCH ULTRASOFT LANCETS MISC Check BS twice daily. E 11.9 1 Box Dosing Unit 11 12/15/2016 Active Nystatin (NYSTOP) 865868 UNIT/GM powderIndications:Cu taneous candidiasis APPLY TOPICALLY TO AFFECTED AREA 3 TIMES A DAY. SPRINKLE OVER AFFECTED AREA. 15 g 2 12/15/2016 Active Blood Glucose Monitoring Suppl (Augment ULTRA SYSTEM) w/Device KIT Twice daily. Dx E 11.9 1 Kit 0 12/25/2017 Active Glucose Blood (SounderUCH ULTRA BLUE) STRPIndications:Type 2 diabetes mellitus with hemoglobin A1c goal of less than 7.0% ([facility]) Check BS twice daily E11.9 [...] as of this encounter (statuses as of 07/14/2023) Active Problems Problem Noted Date Diagnosed Date FUO (fever of unknown origin) 07/10/2023 Polyneuropathy associated with underlying diseas e 10/15/2022 Paroxysmal atrial fibrillation 10/15/2022 History of 2019 novel coronavirus disease (COVID -19) 09/18/2022 DNR (do not resuscitate) 09/17/2022 H/O Clostridium difficile infection 2022 Primary open angle glaucoma (POAG) of both eyes, mild stage 04/02/2022 History of [place] (myocardial infarction) 04/02/2022 Neutropenia 04/02/2022 Last Assessment [...] osteoporosis wit hout current pathological fracture 06/08/2020 emt intermediate current use of therapeutic drug 2019 Chronic right-sided heart failure 11/03/2019 Major depressive disorder, r ecurrent episode, in partial remission 11/03/2019 Last Assessment & Plan: Managed well with Cymbalta 60 mg daily Gastroesophageal reflux disease without esophagi tis 11/03/2019 Last Assessment & Plan: Managed with pantoprazole 40 mg daily Coronary artery disease invo lving [place] coronary artery of [place] heart without angina pectoris 11/03/2019 Last Assessment [...] as of this encounter (statuses as of 07/14/2023) Resolved Problems Problem Noted Date Diagnosed Date [...] ICD-10 update of inactive term LOC PRIM [id number] 04/12/2003 0810/2016 PURE HYPERCHOLESTEROLEM 12/27/200107/16 Asthma with [...] moderate 12/05/2014 CAD (coronary artery disease ), [place] coronary artery 02/24/2022 Overview: duplicate documented as of this encounter (statuses as of 07/14/2023) Immunizations Name Administration Dates Next Due COVID-19 mRNA, LNP-s, No Pre serve, 2-Dose Series (Moderna) 05/06/2021,01/31/2021,01/02/2021 COVID-19, LNP-s, No Preserve , Pete-sucrose, Ages 12+ (Guidesly) 03/26/2022 COVID-19, mRNA, LNP-s, PF, B ooster, [...] 08/10/2023 10:40 AM EST Office Visit Rheumatology [address] [place] [phone] Brandon Lewis MD [address] [place] [address] [place] [address] 01/29/2024 3:10 PM EDT Office Visit Family Medicine [address] [place] [phone] [place] [address] Pending Results Name Type Priority Associated Diagnoses Date /Time CLOSTRIDIUM DIFFICILE, PCR Lab Routine H/O Clostridium difficile infection 07/14/2023 9:26 AM EDT Health Maintenance Due Date Last Done Comments [...] Additional history exists CKD HGB USE SMARTSET 01755 07/10/202407/10, 07/10/2023, 05/27/2023, Additional history exists CKD PHOS USE SMARTSET 76561 07/10/202406/15, 04/15/2022, 03/12/2021, Additional history exists O2 ASSESSMENT COMPLETED IN PAST YEAR FOR COPD 07/10/2024 07/10/2023 DXA Scan 05/04/2025 05/04/2023, 03/14, 01/18/2013 Pneumococcal Vaccine: 65+ Years Completed 03/05/2017, 06/28/2015, 11/25/2011, Additional history exists Fecal Occult Blood Test Discontinued 09/23/19, 08/06/2018, 02/21/2004 VITAMIN D LEVEL ONCE IN A LIFETIME-USE SMARTSET# 52458 Completed 10/18/2020, 03/06/2020, 03/26/2018, Additional history exists [...] this encounter Medical Devices Implanted Type Area Needle Polisher Device Identifier Shelf Expiration Date Model / Serial / Lot Lens 19.5 Sn60wf - [id number] - [id number] Implanted:Qty: 1 on 11/21/2016 by Faraz Jeffers MD at OR [facility] Left: Eye RAMÓN : SURGICAL 05/14/2021 SN60WF.1 95 / [id number] 2 / Lens 19.5 Sn60wf - [id number] - [id number] Implanted:Qty: 1 on 04/22/2019 by Faraz Jeffers MD at OR [facility] Right: Eye RAMÓN : SURGICAL 07/14/2023 SN60WF.195 / [id number] / documented as of this encounter Visit Diagnoses Diagnosis H/O Clostridium difficile infection Personal history of other infectious and parasitic disease documented in this encounter Additional Health Concerns Infection Onset Date Last Indicated Resolved Time C. difficile Rule-Out 07/14/2023 07/14/2023 documented as of this encounter Advance Directives [...] and were consensually agreed upon. Care Teams Felter Tennis Balls Relationship Specialty Start Date End Date Leni Moyer DO [address] [place] [address] [place] [address] PCP - General Internal Medicine 11/18/17 documented as of this encounter
--- OUTSIDE RECORDS SUMMARY | 2023-09-05 18:40 | External Medical Summary | Summary of Care ---
Author Name Unknown Organization [facility] Address [address] [place] [address] Phone [phone] Care Team Providers Care Electron Tube Assembler Name Role Phone Leni Moyer Primary Care Provider Reason for Visit * Reason Onset Date Comments case management 07/13/2023 Disenroll from I VR Encounter Details Date Type Department Care Team (Latest Contact Info) Description 07/13/2023 [place] Telephone Care Coordination [address] [place], [place] [phone] Liv Stein, RN [address] [place] [address] case management (Disenroll from IVR) Allergies Active Allergy Reactions Criticality Noted Date Comments Ciprofloxacin Bleeding High 05/27/2023 And rash Influenza Virus Vac Live Quad High 06/12/2021 2 years ago, flown to [facility] Methotrexate 08/19/2013 pneumonitis Other Allergy (See Comments) Rash 012 Insecticides cause breathing problems Penicillins Hives 02/01/2001 Ranitidine Rash 07/14/2001 documented as of this encounter (statuses as of 07/13/2023) Medications Medication Sig Dispensed Refills Start Date End Date Status ONETOUCH ULTRASOFT LANCETS MISC Check BS twice daily. E 11.9 1 Box Dosing Unit 11 12/15/2016 Active Nystatin (NYSTOP) 789508 UNIT/GM powderIndications:Cu taneous candidiasis APPLY TOPICALLY TO AFFECTED AREA 3 TIMES A DAY. SPRINKLE OVER AFFECTED AREA. 15 g 2 12/15/2016 Active Blood Glucose Monitoring Suppl (Informed Trades ULTRA SYSTEM) w/Device KIT Twice daily. Dx E 11.9 1 Kit 0 12/25/2017 Active Glucose Blood (FlixlabUCH ULTRA BLUE) STRPIndications:Type 2 diabetes mellitus with [...] 0 10/01/2022 Active Vitamin D3 50 MCG (1999 UT) Oral Capsule Take 1 Capsule by [...] 6 hours. 360 Capsule 0 07/01/2023 Active Vowst Oral Capsule (Fecal Microb Spores, Live-brpk)Indication s:H/O Clostridium difficile infection Take 4 Capsules by mouth in the morning for 3 days. 12 Capsule 0 07/10/2023 Active Metoprolol Succinate ER 25 MG Oral [...] as of this encounter (statuses as of 07/13/2023) Active Problems Problem Noted Date Diagnosed Date FUO (fever of unknown origin) 07/10/2023 Polyneuropathy associated with underlying diseas e 10/15/2022 Paroxysmal atrial fibrillation 10/15/2022 History of 2019 novel coronavirus disease (COVID -19) 09/18/2022 DNR (do not resuscitate) 09/17/2022 H/O Clostridium difficile infection 2022 Primary open angle glaucoma (POAG) of both eyes, mild stage 04/02/2022 History of [place] (myocardial infarction) 04/02/2022 Neutropenia 04/02/2022 Last Assessment [...] osteoporosis wit hout current pathological fracture 06/08/2020 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 2019 Chronic right-sided heart failure 11/03/2019 Major depressive disorder, r ecurrent episode, in partial remission 11/03/2019 Last Assessment & Plan: Managed well with Cymbalta 60 mg daily Gastroesophageal reflux disease without esophagi tis 11/03/2019 Last Assessment & Plan: Managed with pantoprazole 40 mg daily Coronary artery disease invo lving [place] coronary artery of [place] heart without angina pectoris 11/03/2019 Last Assessment [...] as of this encounter (statuses as of 07/13/2023) Resolved Problems Problem Noted Date Diagnosed Date [...] ICD-10 update of inactive term LOC PRIM [id number] 04/12/2003 08/0 10/2016 PURE HYPERCHOLESTEROLEM 12/27/200107/16 Asthma [...] moderate 12/05/2014 CAD (coronary artery disease ), [place] coronary artery 02/24/2022 Overview: duplicate documented as of this encounter (statuses as of 07/13/2023) Immunizations Name Administration Dates Next Due COVID-19 [...] encounter Miscellaneous Notes * Telephone Encounter - Liv Stein RN - 07/13/2023 8:54 AM EDT Please discharge the patient from [facility] Device(s)/IVR to be discontinued: 06/21 due to end of ROLANDO period. Thank you. documented in this encounter Plan of Treatment Upcoming Encounters Date Type Department Care Team (Late st Contact Info) Description 08/10/2023 10:40 AM EST Office Visit Rheumatology [address] [place] [phone] Brandon Lewis MD [address] [facility] [place], [place] [address] 01/29/2024 3:10 PM EDT Office Visit Family Medicine [address] [place] [phone] [address] [place] [address] Health Maintenance Due Date Last Done Comments [...] 2023 06/14/2018, 06/22/2017, 08/12/2016, Additional history exists DIABETES-EYE EXAM 07/03/2023 07/03/2022, , 04/12/2020, Additional history exists GFR 11/25/2023 05/27/2023, 09/2022, 01/12/2023, Additional history exists HbA1c 01/09/2024 07/10/2023, 12/13, 06/10/2022, Additional history exists Albumin/Creatinine Ratio 04/08/2024 023, 04/15/2022, 06/12/2021, Additional history exists Depression Screening 04/08/2024 04/08/2023 Diabetic Foot Exam 04/08/2024 04/08/2023, 0 06/10/2022, 06/12/2021, Additional history exists CKD HGB USE SMARTSET 65034 07/10/202407/10, 07/10/2023, 05/27/2023, Additional history exists CKD PHOS USE SMARTSET 00590 07/10/202406/15, 04/15/2022, 03/12/2021, Additional history exists O2 ASSESSMENT COMPLETED IN PAST YEAR FOR COPD 07/10/2024 07/10/2023 DXA Scan 05/04/2025 05/04/2023, 03/14, 01/18/2013 Pneumococcal Vaccine: 65+ Years Completed 03/05/2017, 06/28/2015, 11/25/2011, Additional history exists Fecal Occult Blood Test Discontinued 09/23/19, 08/06/2018, 02/21/2004 VITAMIN D LEVEL ONCE IN A LIFETIME-USE SMARTSET# 31157 Completed 10/18/2020, 03/06/2020, 03/26/2018, Additional history exists [...] this encounter Medical Devices Implanted Type Area Proposal Rep Device Identifier Shelf Expiration Date Model / Serial / Lot Lens 19.5 Sn60wf - [id number] - [id number] Implanted:Qty: 1 on 11/21/2016 by Faraz Jeffers MD at OR [facility] Left: Eye RAMÓN : SURGICAL 05/14/2021 SN60WF.1 95 / [id number] 2 / Lens 19.5 Sn60wf - [id number] - [id number] Implanted:Qty: 1 on 04/22/2019 by Faraz Jeffers MD at OR [facility] Right: Eye RAMÓN : SURGICAL 07/14/2023 SN60WF.195 / [id number] / documented as of this encounter [...] and were consensually agreed upon. Care Teams Electron Tube Assembler Relationship Specialty Start Date End Date Leni Moyer DO [address] [place] [address] [place] [phone] PCP - General Internal Medicine 11/18/17 documented as of this encounter
--- OUTSIDE RECORDS SUMMARY | 2023-09-05 18:40 | External Medical Summary ---
Author Name Unknown Address Unknown Organization K01:[facility] - [address] [place] [address] Laboratory Report Ordering Provider Test Date Status ERNESTOHARPER 07/10/2023 16:19:33 Final Observation Date Value Abnormality Reference (Units ) Status Phosphate 07/10/2023 16:19:33 3.6 2.5-4.8 (m g/dL) Final Performing Location [facility] [address] [place] [address]
--- OUTSIDE RECORDS SUMMARY | 2023-09-05 18:40 | External Medical Summary ---
Author Name Unknown Address Unknown Organization K01:[facility] - [address] [place] [address] Laboratory Report Ordering Provider Test Date Status MEREDITH OROZCO 07/10/2023 16:19:33 Final Observation Date Value Abnormality Reference (Units ) Status Vitamin B12 07/10/2023 16:19:33 >2000 Above high normal 232-1245 (pg/mL) Final Performing Location [facility] - [address] [place] [address]
--- OUTSIDE RECORDS SUMMARY | 2023-09-05 18:40 | External Medical Summary | Summary of Care ---
Author Name Unknown Organization [facility] Address [address] [facility] [address] Phone [phone] Care Team Providers Care Stud Master/Mistress Name Role Phone Leni Moyer DO Primary Care Provider Reason for Visit * Reason Comments Medication Refill Encounter Details Date Type Department Care Team (Late st Contact Info) Description 07/06/2023 Refill Family Medicine [address] [phone] Leni Moyer DO [address] [place] [address] [place] [address] Allergies Active Allergy Reactions Criticality Noted Date Comments Ciprofloxacin Bleeding High 05/27/2023 And rash Influenza Virus Vac Live Quad High 06/12/2021 2 years ago, flown to [facility] Methotrexate 08/19/2013 pneumonitis Other Allergy (See Comments) Rash 012 Insecticides cause breathing problems Penicillins Hives 02/01/2001 Ranitidine Rash 07/14/2001 documented as of this encounter (statuses as of 07/06/2023) Medications Medication Sig Dispensed Refills Start Date End Date Status ONETOUCH ULTRASOFT LANCETS MISC Check BS twice daily. E 11.9 1 Box Dosing Unit 11 12/15/2016 Active Nystatin (NYSTOP) 614726 UNIT/GM powderIndications:Cu taneous candidiasis APPLY TOPICALLY TO AFFECTED AREA 3 TIMES A DAY. SPRINKLE OVER AFFECTED AREA. 15 g 2 12/15/2016 Active Blood Glucose Monitoring Suppl (Chartio ULTRA SYSTEM) w/Device KIT Twice daily. Dx E 11.9 1 Kit 0 12/25/2017 Active Glucose Blood (I2IC CorporationTOUCH ULTRA BLUE) STRPIndications:Type 2 diabetes mellitus with hemoglobin A1c goal of less than 7.0% ([facility]) Check BS twice daily E11.9 100 Strip 11 12/28/2017 Active betamethasone dipropionate (DIPROSONE) 0.05 % creamIndications:Donnie h and nonspecific skin eruption,Itching Apply topically to affected area 2 times a day. To affected area. 45 g 1 06/14/2018 Active Additional Information Patient taking differently:TopicalBID PRN, To affected area., Informant: At Discharge, Reported on 05/14/2023 Respiratory Therapy Supplies (NEBULIZER/TUBING/MO UTHPIECE) KIT 0 [...] B-12 1000 MCG Oral CapsuleIndications:B [address] [place] [address] Thursday, Thursday, and Thursday 30 Capsule 0 [...] in 60 to 180 days Given at [facility] 1 Each 1 12/29/2022 Active Additional Information Patient not taking.Reported on 06/03/2023 Metoprolol Succinate ER 25 MG Oral Tablet Extended Release 24 Hour (toPROL XL) TAKE ONE TABLET BY MOUTH EVERY MORNING 100 Tablet 1 03/11/2023 4 Active predniSONE 5 MG Oral Tablet (Deltasone) [...] MOUTH EVERY MORNING 100 Tablet 3 05/19/2023 4 Active Triamcinolone Acetonide 0.1 % External Cream [...] as of this encounter (statuses as of 07/06/2023) Active Problems Problem Noted Date Diagnosed Date Polyneuropathy associated with underlying diseas e 10/15/2022 Paroxysmal atrial fibrillation 10/15/2022 History of 2019 novel coronavirus disease (COVID -19) 09/18/2022 DNR (do not resuscitate) 09/17/2022 H/O Clostridium difficile infection 2022 Primary open angle glaucoma (POAG) of both eyes, mild stage 04/02/2022 History of [facility] (myocardial infarction) 04/02/2022 Neutropenia 04/02/2022 Last Assessment [...] mg daily Coronary artery disease invo lving [place] coronary artery of [place] heart without angina pectoris 11/03/2019 Last Assessment [...] as of this encounter (statuses as of 07/06/2023) Resolved Problems Problem Noted Date Diagnosed Date [...] not at goal 03/03/200707/11 Mixed dyslipidemia 03/03/2007 Overview: Per Lipid Taxonomy. Gastroparesis 01/11/2007 03/18/2019 [...] ICD-10 update of inactive term LOC PRIM [id number] 04/12/200310/2016 PURE HYPERCHOLESTEROLEM 12/27/200107/16 Asthma with severity [...] moderate 12/05/2014 CAD (coronary artery disease ), [place] coronary artery 02/24/2022 Overview: duplicate documented as of this encounter (statuses as of 07/06/2023) Immunizations Name Administration Dates Next Due COVID-19 [...] encounter Miscellaneous Notes * Telephone Encounter - Disha Ross RPh - 07/06/2023 2:30 PM EDTRefused Prescriptions: Disp Refills Vancomycin HCl 125 MG Oral Capsule (Vancoc*360 Ca*0 Sig: TAKE ONE CAPSULE BY MOUTH EVERY 6 HOURSRefused By: DISHA ROSS for Refusal: Duplicate Request- documented in this encounter Plan of Treatment Upcoming Encounters Date Type Department Care Team (Late st Contact Info) Description 07/10/2023 3:10 PM EDT Office Visit Family Medicine [address] [place] [phone] [place] [address] 08/10/2023 10:40 AM EST Office Visit Rheumatology [address] [place] [phone] Brandon Lewis MD [facility], [place] [address] Health Maintenance Due Date Last Done Comments Alpha-1 Antitrypsin 1963 Hepatitis B (1 of 3 - Risk 3-dose series) 2007 DTaP,Tdap,and Td Vaccines (2 - Td or Tdap) 10/02/2020 10/02/2010, 10/31/2004 *BISPHONATE OR OTHER ACCEPTABLE MEDICATION NEEDED FOR OSTEOPOROSIS (REFER TO SMARTSET #1146) 06/28/2022 CKD PHOS USE SMARTSET 53652 04/15/2023 08/0 10/2021, 03/12/2021, 07/19/2019, Additional history exists COVID-19 [...] Additional history exists CKD HGB USE SMARTSET 04364 05/27/202405/27, 05/27/2023, 10/15/2022, Additional history exists O2 ASSESSMENT COMPLETED IN PAST YEAR FOR COPD 06/03/2024 06/03/2023 DXA Scan 05/04/2025 05/04/2023, 03/14, 01/18/2013 Pneumococcal Vaccine: 65+ Years Completed 03/05/2017, 06/28/2015, 11/25/2011, Additional history exists Fecal Occult Blood Test Discontinued 09/23/19, 08/06/2018, 02/21/2004 VITAMIN D LEVEL ONCE IN A LIFETIME-USE SMARTSET# [id number] Completed 10/18/2020, 03/06/2020, 03/26/2018, Additional history exists [...] this encounter Medical Devices Implanted Type Area Sewing Machine Operator Semiautomatic Device Identifier Shelf Expiration Date Model / Serial / Lot Lens 19.5 Sn60wf - [id number] - [id number] Implanted:Qty: 1 on 11/21/2016 by Faraz Jeffers MD at [facility] Left: Eye RAMÓN : SURGICAL 05/14/2021 SN60WF.1 95 / [id number] 2 / Lens 19.5 Sn60wf - [id number] - [id number] Implanted:Qty: 1 on 04/22/2019 by Faraz Jeffers MD at [facility] Right: Eye RAMÓN : SURGICAL 07/14/2023 SN60WF.[id number] / [id number] / documented as of this encounter [...] and were consensually agreed upon. Care Teams Stud Master/Mistress Relationship Specialty Start Date End Date Leni Moyer DO [address] [place] [address] [place] [phone] PCP - General Internal Medicine 11/18/17 documented as of this encounter
--- OUTSIDE RECORDS SUMMARY | 2023-09-05 18:40 | External Medical Summary ---
Author Name Unknown Address Unknown Organization K01:[facility] [place] - [facility] [address] [facility] [address] [facility] [address] Laboratory Report Ordering Provider Test Date Status MEREDITH OROZCO 07/10/2023 16:19:33 Final Observation Date Value Abnormality Reference (Units ) Status WBC, Total 07/10/2023 16:19:33 3.10 Below low normal 4.00-10.80 (K/uL) Final RBC 07/10/2023 16:19:33 4.61 3.85-5.15 (M/uL) Final Hemoglobin 07/10/2023 16:19:33 12.9 12.0-15.3 (g/dL) Final HCT 07/10/2023 16:19:33 37.0 36.0-45.2 (%) Final MCV 07/10/2023 16:19:33 80.3 81.5-97.5 (fL) Final MCH 07/10/2023 16:19:33 28.0 27.0-34.0 (pg) Final MCHC 07/10/2023 16:19:33 34.9 32.0-36.0 (g/dL) Final RDW 07/10/2023 16:19:33 16.1 11.5-15.5 (%) Final Platelets 07/10/2023 16:19:33 182 140-400 (K/uL) Final MPV 07/10/2023 16:19:33 8.7 6.6-11.1 (fL) Final Nucleated erythrocytes/100 leukocytes [Ratio] in Blood by Automated count 07/10/2023 16:19:33 0 <=0 (/100 WBCs) Final Performing Location [facility] [place] [facility] [address] [facility] [facility] [address]
--- OUTSIDE RECORDS SUMMARY | 2023-09-05 18:40 | External Medical Summary | Summary of Care ---
Author Name Unknown Organization [facility] Address [address] [facility] [place] [address] Phone [phone] Care Team Providers Care Senior Software Quality Analyst Name Role Phone Leni Moyer Primary Care Provider Reason for Visit * Reason Comments Outpatient Testing Encounter Details Date Type Department Care Team (Late st Contact Info) Description 07/10/2023 4:20 PM EDT Laboratory Laboratory [address] [place] [phone] [place] [address] Type 2 diabetes mellitus with hemoglobin A1c goal of less than 8.0% (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 E 11.9 1 Box Dosing Unit 11 12/15/2016 Active Nystatin (NYSTOP) 596367 UNIT/GM powderIndications:Cu taneous candidiasis APPLY TOPICALLY TO AFFECTED AREA 3 TIMES A DAY. SPRINKLE OVER AFFECTED AREA. 15 g 2 12/15/2016 Active Blood Glucose Monitoring Suppl (Fippex ULTRA SYSTEM) w/Device KIT Twice daily. Dx E 11.9 1 Kit 0 12/25/2017 Active Glucose Blood (WholeshareUCH ULTRA BLUE) STRPIndications:Type 2 diabetes mellitus with hemoglobin A1c goal of less than 7.0% (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 2019 Chronic right-sided heart failure 11/03/2019 Major depressive disorder, r ecurrent episode, in partial remission 11/03/2019 Last Assessment & Plan: Managed well with Cymbalta 60 mg daily Gastroesophageal reflux disease without esophagi tis 11/03/2019 Last Assessment & Plan: Managed with pantoprazole 40 mg daily Coronary artery disease invo lving [place] coronary artery of [place] heart without angina pectoris 11/03/2019 Last Assessment [...] as of this encounter (statuses as of 07/10/2023) Resolved Problems Problem Noted Date Diagnosed Date [...] ICD-10 update of inactive term LOC PRIM [id number] 04/12/200310/2016 PURE HYPERCHOLESTEROLEM 12/27/200107/16 Asthma with severity [...] moderate 12/05/2014 CAD (coronary artery disease ), [place] coronary artery 02/24/2022 Overview: duplicate documented as of this encounter (statuses as of 07/10/2023) Immunizations Name Administration Dates Next Due COVID-19 [...] 08/10/2023 10:40 AM EST Office Visit Rheumatology [address] [place] [phone] Brandon Lewis MD [address] [place] [address] [place] [address] 01/29/2024 3:10 PM EDT Office Visit Family Medicine [address] [place] [phone] Leni Moyer[address] [place] [address] Pending Results Name Type Priority Associated Diagnoses Date /Time HEMOGLOBIN A1C Lab Routine Type 2 diabetes mellitus with hemoglobin A1c goal of less than 8.0% (HCC) 07/10/2023 4:19 PM EDT PHOSPHORUS Lab Routine moth exterminator current use of therapeutic drug 07/10/2023 4:19 PM EDT CBC WITH WBC DIFFERENTIAL Lab Routine moth exterminator current use of therapeutic drug 07/10/2023 4:19 PM EDT VITAMIN B12 Lab Routine B12 deficiency 07/10/2023 4:19 PM EDT CBC Lab Routine moth exterminator current use of therapeutic drug 07/10/2023 4:19 PM EDT DIFFERENTIAL, AUTOMATED Lab Routine moth exterminator current use of therapeutic drug 07/10/2023 4:19 PM EDT Health Maintenance Due Date Last Done Comments Alpha-1 Antitrypsin 1963 Hepatitis B (1 of 3 - Risk 3-dose series) 2007 DTaP,Tdap,and Td Vaccines (2 - Td or Tdap) 10/02/2020 10/02/2010, 10/31/2004 *BISPHONATE OR OTHER ACCEPTABLE MEDICATION NEEDED FOR OSTEOPOROSIS (REFER TO SMARTSET #1146) 06/28/2022 CKD PHOS USE SMARTSET 37956 04/15/2023 0810/2021, 03/12/2021, 07/19/2019, Additional history exists COVID-19 Vaccine ( season) 2023 03/26/2022, 05/06/2021, 05/06/2021, Additional history exists Influenza Vaccine (FLU shot) (#1) 2023 06/14/2018, 06/22/2017, 08/12/2016, Additional history exists HbA1c 06/30/2023 12/29/2022, 05/16, 11/22/2021, Additional history exists DIABETES-EYE EXAM 07/03/2023 07/03/2022, , 04/12/2020, Additional history exists GFR 11/25/2023 05/27/2023, 09/2022, 01/12/2023, Additional history exists Albumin/Creatinine Ratio 04/08/2024 023, 04/15/2022, 06/12/2021, Additional history exists Depression Screening 04/08/2024 04/08/2023 Diabetic Foot Exam 04/08/2024 04/08/2023, 0 06/10/2022, 06/12/2021, Additional history exists CKD HGB USE SMARTSET 08679 05/27/202405/27, 05/27/2023, 10/15/2022, Additional history exists O2 ASSESSMENT COMPLETED IN PAST YEAR FOR COPD 06/03/2024 06/03/2023 DXA Scan 05/04/2025 05/04/2023, 03/14, 01/18/2013 Pneumococcal Vaccine: 65+ Years Completed 03/05/2017, 06/28/2015, 11/25/2011, Additional history exists Fecal Occult Blood Test Discontinued 09/23/19, 08/06/2018, 02/21/2004 VITAMIN D LEVEL ONCE IN A LIFETIME-USE SMARTSET# 79879 Completed 10/18/2020, 03/06/2020, 03/26/2018, Additional history exists [...] this encounter Medical Devices Implanted Type Area Fisher Diving Device Identifier Shelf Expiration Date Model / Serial / Lot Lens 19.5 Sn60wf - [id number] - [id number] Implanted:Qty: 1 on 11/21/2016 by Faraz Jeffers MD at [facility] Left: Eye RAMÓN : SURGICAL 05/14/2021 SN60WF.1 95 / [id number] 2 / Lens 19.5 Sn60wf - [id number] - [id number] Implanted:Qty: 1 on 04/22/2019 by Faraz Jeffers MD at [facility] Right: Eye RAMÓN : SURGICAL 07/14/2023 SN60WF.195 / [id number] / documented as of this encounter Visit Diagnoses Diagnosis Type 2 diabetes mellitus with hemoglobin A1c goal of less than 8.0% (HCC) nursing home current use of therapeutic drug B12 deficiency Other B-complex deficiencies documented in this encounter Advance Directives Latest Code Status [...] and were consensually agreed upon. Care Teams Senior Software Quality Analyst Relationship Specialty Start Date End Date Leni Moyer DO [address] [place] [address] [place] [address] PCP - General Internal Medicine 11/18/17 documented as of this encounter
--- OUTSIDE RECORDS SUMMARY | 2023-09-05 18:40 | External Medical Summary ---
Author Name Unknown Address Unknown Organization K01:[facility] [place] [address] [facility] [address] Laboratory Report Ordering Provider Test Date Status MEREDITH OROZCO 07/10/2023 16:19:33 Final Observation Date Value Abnormality Reference (Units ) Status SYNC LEUKOCYTES IN BLOOD BY AUTOMATED COUNT 07/10/2023 16:19:33 3.10 Below low normal 4.00-10.80 (K/uL) Final Segs 07/10/2023 16:19:33 17.8 Below low normal 40.0-75.0 (%) Final Lymphs % 07/10/2023 16:19:33 63.5 Above high normal 18.0-42.0 (%) Final Monos 07/10/2023 16:19:33 18.1 Above high normal 1.0-11.0 (%) Final Eosinophils 07/10/2023 16:19:33 0.0 0.0-6.0 (%) Final Basos 07/10/2023 16:19:33 0.3 0.0-2.0 (%) Final Immature Granulocyte, Percent 07/10/2023 16:19:33 0.3 0.0-2.0 (%) Final Absolute Segs 07/10/2023 16:19:33 0.55 Below low normal 1.80-7.70 (K/uL) Final Lymphs, absolute 07/10/2023 16:19:33 1.97 1.00-4.80 (K/ul) Final Monos, Abs 07/10/2023 16:19:33 0.56 0.00-1.10 (K/uL) Final Eos, Abs 07/10/2023 16:19:33 0.00 0.00-0.70 (K/uL) Final Basos, Abs 07/10/2023 16:19:33 0.01 0.00-0.20 (K/uL) Final Immature Granulocytes, Number 07/10/2023 16:19:33 0.01 0.00-0.20 (K/uL) Final Performing Location [facility] [place] [place] [facility] [address] [facility] [address]
--- OUTSIDE RECORDS SUMMARY | 2023-09-05 18:40 | External Medical Summary | Summary of Care ---
Author Name Unknown Organization [facility] Address [address] [place] [address] Phone [phone] Care Team Providers Care Business Specialist Name Role Phone Leni Moyer DO Primary Care Provider Reason for Visit * Reason Onset Date Comments case management 07/03/2023 Encounter Details Date Type Department Care Team (Late st Contact Info) Description 07/03/2023 Telephone Care Coordination [address] [place], [place] [phone] Liv Stein, AUGUSTINE [address] [place] [address] case management Allergies Active Allergy Reactions Criticality Noted Date Comments Ciprofloxacin Bleeding High 05/27/2023 And rash Influenza Virus Vac Live Quad High 06/12/2021 2 years ago, flown to [facility] Methotrexate 08/19/2013 pneumonitis Other Allergy (See Comments) Rash 012 Insecticides cause breathing problems Penicillins Hives 02/01/2001 Ranitidine Rash 07/14/2001 documented as of this encounter (statuses as of 07/09/2023) Medications Medication Sig Dispensed Refills Start Date End Date Status ONETOUCH ULTRASOFT LANCETS MISC Check BS twice daily. E 11.9 1 Box Dosing Unit 11 12/15/2016 Active Nystatin (NYSTOP) 588241 UNIT/GM powderIndications:Cu taneous candidiasis APPLY TOPICALLY TO AFFECTED AREA 3 TIMES A DAY. SPRINKLE OVER AFFECTED AREA. 15 g 2 12/15/2016 Active Blood Glucose Monitoring Suppl (ONETOUCH ULTRA SYSTEM) w/Device KIT Twice daily. Dx E 11.9 1 Kit 0 12/25/2017 Active Glucose Blood (Greenplum SoftwareTOUCH ULTRA BLUE) STRPIndications:Type 2 diabetes mellitus with hemoglobin A1c goal of less than 7.0% ([facility]) Check BS twice daily E11.9 [...] B-12 1000 MCG Oral CapsuleIndications:B [address] [place] [address] Thursday, Thursday, and Thursday 30 Capsule 0 [...] in 60 to 180 days Given at [facility] 1 Each 1 12/29/2022 Active Additional [...] osteoporosis wit hout current pathological fracture 06/08/2020 jail current use of therapeutic drug 2019 Chronic right-sided heart failure 11/03/2019 Major depressive disorder, r ecurrent episode, in partial remission 11/03/2019 Last Assessment & Plan: Managed well with Cymbalta 60 mg daily Gastroesophageal reflux disease without esophagi tis 11/03/2019 Last Assessment & Plan: Managed with pantoprazole 40 mg daily Coronary artery disease invo lving [place] coronary artery of [place] heart without angina pectoris 11/03/2019 Last Assessment [...] ICD-10 update of inactive term LOC PRIM [id number] 04/12/200310/2016 PURE HYPERCHOLESTEROLEM 12/27/200107/16 Asthma with severity [...] moderate 12/05/2014 CAD (coronary artery disease ), [place] coronary artery 02/24/2022 Overview: duplicate documented as [...] Telephone Encounter - Liv Stein RN - 07/03/2023 10:08 AM EDT Spoke with Florencio on the phone. Patients goals are met as follows: HGBA1C <8 - 6 LDL <100 - 51 HTN <140/90 - 116/76 CHF is stable Advanced care planning was previously discussed, would like new forms, will give to them atappt on 07/10. CM Transition/Closure: Review of current patient status: SNP LOB: no Outstanding Goals: NONE Current Status of Advanced Care Planning: already in place, unable to locate, receptive to completing a new one. Will provide information at upcoming appt on 07/10 Medications: Pt. can afford medications. Current Exacerbation Plan: for sudden weight gain of 3 lbs overnight or 5 lbs in a week, pt is to call PCP or cardiology Community Resource Needs: All necessary community resource needs met/in place. Future Appointments Scheduled: Future Appointments-next 60 days Date/Time Provider Specialty 07/10/[address] Moyer Family Medicine 08/10/[address] Lucas Rheumatology No Appointment needed at this time. Health Plan Benefits assessed: yes Pt. Has had no utilization for a period of 2 months- inpatient in April for a UTI. Upon review of patient status plan to close patient from Outpatient Case Management services.. Reinforced CM contact information as well as PCP office contact information for any change in status or questions. Pt. made aware of this transition. Warm Hand-off: This note serves as written notification of Transition/Closure plan as well as handoff details. Warm hand-off conducted: No. Liv Stein RN Outpatient Case Management documented in this encounter Plan of Treatment Upcoming Encounters Date Type Department Care Team (Late st Contact Info) Description 07/10/2023 3:10 PM EDT Office Visit Family Medicine [address] [place] [phone] Leni Moyer[address] [place] [address] 08/10/2023 10:40 AM EST Office Visit Rheumatology [address] [place] [phone] Brandon Lewis MD [address] [place] [address] [place] [address] Health Maintenance Due Date Last Done Comments Alpha-1 Antitrypsin 1963 Hepatitis B (1 of 3 - Risk 3-dose series) 2007 DTaP,Tdap,and Td Vaccines (2 - Td or Tdap) 10/02/2020 10/02/2010, 10/31/2004 *BISPHONATE OR OTHER ACCEPTABLE MEDICATION NEEDED FOR OSTEOPOROSIS (REFER TO SMARTSET #1146) 06/28/2022 CKD PHOS USE SMARTSET 54413 04/15/2023 08/0 10/2021, 03/12/2021, 07/19/2019, Additional history exists COVID-19 Vaccine ( season) 2023 03/26/2022, 05/06/2021, 05/06/2021, Additional history exists Influenza Vaccine (FLU shot) (#1) 2023 06/14/2018, 06/22/2017, 08/12/2016, Additional history exists HbA1c 06/30/2023 12/29/2022, 05/16, 11/22/2021, Additional history exists DIABETES-EYE EXAM 07/03/2023 07/03/2022, , 04/12/2020, Additional history exists GFR 11/25/2023 05/27/2023, 09/0 09/2022, 01/12/2023, Additional history exists Albumin/Creatinine Ratio 04/08/2024 023, 04/15/2022, 06/12/2021, Additional history exists Depression Screening 04/08/2024 04/08/2023 Diabetic Foot Exam 04/08/2024 04/08/2023, 0 06/10/2022, 06/12/2021, Additional history exists CKD HGB USE SMARTSET 20836 05/27/202405/27, 05/27/2023, 10/15/2022, Additional history exists O2 ASSESSMENT COMPLETED IN PAST YEAR FOR COPD 06/03/2024 06/03/2023 DXA Scan 05/04/2025 05/04/2023, 03/14, 01/18/2013 Pneumococcal Vaccine: 65+ Years Completed 03/05/2017, 06/28/2015, 11/25/2011, Additional history exists Fecal Occult Blood Test Discontinued 09/23/19, 08/06/2018, 02/21/2004 VITAMIN D LEVEL ONCE IN A LIFETIME-USE SMARTSET# 16717 Completed 10/18/2020, 03/06/2020, 03/26/2018, Additional history exists [...] this encounter Medical Devices Implanted Type Area Accordion Repairer Device Identifier Shelf Expiration Date Model / Serial / Lot Lens 19.5 Sn60wf - [id number] - [id number] Implanted:Qty: 1 on 11/21/2016 by Faraz Jeffers MD at [facility] Left: Eye RAMÓN : SURGICAL 05/14/2021 SN60WF.1 95 / [id number] 2 / Lens 19.5 Sn60wf - [id number] - [id number] Implanted:Qty: 1 on 04/22/2019 by Faraz Jeffers MD at [facility] Right: Eye RAMÓN : SURGICAL 07/14/2023 SN60WF.195 / [id number] / documented as of this encounter [...] and were consensually agreed upon. Care Teams Business Specialist Relationship Specialty Start Date End Date Leni Moyer DO [address] [place] [address] [place] [address] PCP - General Internal Medicine 11/18/17 documented as of this encounter
--- OUTSIDE RECORDS SUMMARY | 2023-09-05 18:40 | External Medical Summary | Summary of Care ---
Author Name Unknown Organization [facility] Address [address] [facility] [place] [address] Phone [phone] Care Team Providers Care Basket Grader Name Role Phone Leni Moyer DO Primary Care Provider [phone] Reason for Referral * Evaluate & Treat - Unlimited Visits (Within 10 days (routine)) - Authorized Specialty Diagnoses / Procedures Referred By Erwin velez Referred To Contact Optometry Diagnoses Type 2 diabetes mellitus with hemoglobin A1c goal of less than 8.0% ([facility]) Leni Moyer DO [address] [place] [address] [place] [address] Referral ID Status Reason Start Date Expiration Date Visits Requested Visits Authorized [id number] Authorized Specialty Services Required 3 [phone] Question Answer Referral Priority Within 10 days (routine) Where should this appointment be scheduled? Tae Referring to: Outside [facility] staff will not schedule outside referrals Acknowledge Referring for: Optometry Conditions Optometry Conditions Diabetic Eye Exam without Retinopathy Reason for Visit * Reason Comments Re-Check Pt's c/o pt is getting fevers between 101- 103 about once a month and gets confused (checking on her mother who has been gone for years), last night fell twice, this has been going on since she had shingles and c-diff; back is itchy all the time but worse during the fever. Encounter Details Date Type Department Care Team (Late st Contact Info) Description 07/10/2023 3:10 PM EDT Office Visit Family Medicine [facility] [place] [phone] [place] [phone] Type 2 diabetes mellitus with hemoglobin A1c goal of less than 8.0% ([facility])*; Neutropenia, unspecified type ([facility]); H/O Clostridium difficile infection; intermediate manager current use of therapeutic drug; Gastroesophageal reflux disease without esophagitis; Major depressive disorder, recurrent episode, in partial remission ([facility]); Essential hypertension with goal blood pressure less than 140/90; Rheumatoid arthritis involving multiple sites with positive rheumatoid factor ([facility]); Thiamine deficiency; B12 deficiency; Generalized weakness; Personal history of fall Allergies Active Allergy Reactions Criticality Noted Date Comments Ciprofloxacin Bleeding High 05/27/2023 And rash Influenza Virus Vac Live Quad High 06/12/2021 2 years ago, [facility] Methotrexate 08/19/2013 pneumonitis Other Allergy (See Comments) Rash 012 Insecticides cause breathing problems Penicillins Hives 02/01/2001 Ranitidine Rash 07/14/2001 documented as of this encounter (statuses as of 07/10/2023) Medications Medication Sig Dispensed Refills Start Date End Date Status ONETOUCH ULTRASOFT LANCETS MISC Check BS twice daily. E 11.9 1 Box Dosing Unit 11 7 Active Nystatin (NYSTOP) 182692 UNIT/GM powderIndications: Cutaneous candidiasis APPLY TOPICALLY TO AFFECTED AREA 3 TIMES A DAY. SPRINKLE OVER AFFECTED AREA. 15 g 2 7 Active Blood Glucose Monitoring Suppl (ONETOUCH ULTRA SYSTEM) w/Device KIT Twice daily. Dx E 11.9 1 Kit 0 8 Active Glucose Blood (ONETOUCH ULTRA BLUE) STRPIndications:Ty pe 2 diabetes mellitus with hemoglobin A1c goal of less than 7.0% ([facility]) Check BS twice daily E11.9 100 Strip 11 8 Active Respiratory Therapy Supplies (NEBULIZER/TUBING/ MOUTHPIECE) KIT 0 Active Menthol-Zinc Oxide 0.44-20.6 % [...] MCG/ACT Inhalation Aerosol Powder Breath Activated (BREO ellipta)Indication s:Mild persistent asthma without complication Inhale 1 Puff [...] HFA 108 (90 Base) MCG/ACT Inhalation Aerosol SolutionIndication s:Moderate persistent asthma without complication Inhale 2 Puffs by mouth every 4 hours as needed for Cough, Shortness of Breath or Wheezing. 18 g 2 3 Active B-12 1000 MCG Oral CapsuleIndications :B12 deficiency 2000mcg Thursday, Thursday, and Thursday 30 [...] MOUTH EVERY DAY 90 Tablet 1 3 024 Active Folic Acid 1 MG Oral TabletIndications: Rheumatoid arthritis (HCC) Take 1 Tablet by mouth daily. 100 Tablet 2 3 Active Latanoprost 0.005 % Ophthalmic Solution (Xalatan)Indicatio ns:Primary open angle glaucoma of both eyes, mild stage INSTILL 1 DROP INTO BOTH EYES AT BEDTIME 7.5 mL 0 3 Active DULoxetine HCl 30 MG Oral Capsule Delayed Release Particles (Cymbalta)Indicati ons:Generalized osteoarthritis of multiple sites,Degeneration of lumbosacral intervertebral disc,Adjustment disorder with anxious mood Take 2 Capsules by mouth daily. 200 Capsule 1 3 Active Thiamine HCl 100 MG Oral Tablet (vitamin B-1)Indications:Th iamine deficiency TAKE 1/2 TABLET BY MOUTH DAILY. [...] IN THE MORNING 90 Tablet 3 3 024 Active Albuterol Sulfate (2.5 MG/3ML) 0.083% Inhalation Nebulization Solution Inhale 1 Vial via nebulizer. Use as directed, if needed, for shortness of breath or wheezing 0 Active Triamcinolone Acetonide 0.1 % External Cream (Aristocort)Indica tions:Rash and nonspecific skin eruption Apply topically to affected area 2 times a day. To affected area. 80 g 1 3 Active Montelukast Sodium 10 MG Oral Tablet (Singulair) Take 1 Tablet by mouth in the morning. 100 Tablet 3 3 Active Pantoprazole Sodium 40 MG Oral Tablet Delayed Release (Protonix)Indicati ons:Gastroesophage al reflux disease, unspecified whether esophagitis present take 1 tablet by mouth daily 30 to 60 minutes before the first meal of the day 100 Tablet 3 3 Active Clopidogrel Bisulfate 75 MG Oral Tablet (pLAVix) Take 1 Tablet by mouth in the morning. 100 Tablet 3 3 Active Hydroxychloroquine Sulfate 200 MG Oral Tablet (Plaquenil) Take 1 Tablet by mouth at bedtime. 30 Tablet 0 3 Active Vancomycin HCl 125 MG Oral Capsule (Vancocin) Take 1 Capsule by mouth every 6 hours. 360 Capsule 0 3 Active Vowst Oral Capsule (Fecal Microb Spores, Live-brpk)Indicati ons:H/O Clostridium difficile infection Take 4 Capsules by mouth in the morning for 3 days. 12 Capsule 0 3 023 Active Metoprolol Succinate ER 25 MG Oral Tablet Extended Release 24 Hour (toPROL XL) Take 1 Tablet by mouth in the morning. 100 Tablet 1 3 Active amLODIPine Besylate 5 MG Oral Tablet (Norvasc) Take 1 Tablet by mouth in the morning. 100 Tablet 1 3 Active WheelchairIndicati ons:Rheumatoid arthritis involving multiple sites with positive rheumatoid factor (HCC),Generalized weakness,Personal history of fall 1 small wheelchair. 1 Each 0 3 Active betamethasone dipropionate (DIPROSONE) 0.05 % creamIndications:R cipriano and nonspecific skin eruption,Itching Apply topically to affected area 2 times a day. To affected area. 45 g 1 8 023 Discontinued amLODIPine Besylate 10 MG Oral Tablet (Norvasc) Take 1 Tablet by mouth in the morning. 100 Tablet 3 3 023 Discontinued Magnesium Oxide 400 (240 Mg) MG Oral Tablet (Mag-Ox) Take 1 Tablet by mouth in the morning and 1 Tablet before bedtime. 60 Tablet 0 3 023 Discontinued Zoster Vac Recomb Adjuvanted 50 MCG/0.5ML Intramuscular Suspension Reconstituted (Shingrix) Inject 0.5 mL into a large muscle now and repeat dose in 60 to 180 days Given at [facility] 1 Each 1 3 023 Discontinued Metoprolol Succinate ER 25 MG Oral Tablet Extended Release 24 Hour (toPROL XL) TAKE ONE TABLET BY MOUTH EVERY MORNING 100 Tablet 1 3 023 Discontinued(Re fill) amLODIPine Besylate 10 MG Oral Tablet (Norvasc) TAKE ONE TABLET BY MOUTH EVERY MORNING 100 Tablet 3 3 023 Discontinued documented as of this encounter (statuses as [...] osteoporosis wit hout current pathological fracture 06/08/2020 intermediate manager current use of therapeutic drug 2019 Chronic right-sided heart failure 11/03/2019 Major depressive disorder, r ecurrent episode, in partial remission 11/03/2019 Last Assessment & Plan: Managed well with Cymbalta 60 mg daily Gastroesophageal reflux disease without esophagi tis 11/03/2019 Last Assessment & Plan: Managed with pantoprazole 40 mg daily Coronary artery disease invo lving [place] coronary artery of [place] heart without angina pectoris 11/03/2019 Last Assessment [...] ICD-10 update of inactive term LOC PRIM [id number] 04/12/200310/2016 PURE HYPERCHOLESTEROLEM 12/27/200107/16 Asthma with severity [...] moderate 12/05/2014 CAD (coronary artery disease ), [place] coronary artery 02/24/2022 Overview: duplicate documented as [...] on file documented as of this encounter Last Filed Vital Signs Vital Sign Reading Time Taken Comments Blood Pressure 92/50 07/10/2023 3:10 PM EDT Pulse 70 07/10/2023 3:10 PM EDT Temperature 36.5 C (97.7 F) 07/10/2023 3:10 PM ED T Respiratory Rate - - Oxygen Saturation 98% 07/10/2023 3:10 PM EDT Inhaled Oxygen Concentration - - Weight 58.1 kg (128 lb) 07/10/2023 3:10 PM EDT Height - - Body Mass Index 26.75 05/15/2023 3:17 PM EDT documented in this encounter Patient Instructions * Patient Instructions* Leni Moyer DO - 07/10/2023 3:51 PM EDT Amlodipine: Cut the 10 mg pill in half for a dose of 5 mg. documented in this encounter Progress Notes * Leni Moyer DO - 07/10/2023 3:22 PM EDT Subjective: Belem Rodriguez is a 77 year old female. Chief Complaint Patient presents with Re-Check Pt's c/o pt is getting fevers between 101- 103 about once a month and gets confused (checking on her mother who has been gone for years), last night fell twice, this has been going on since she had shingles and c-diff; back is itchy all the time but worse during the fever. HPI: Belem Rodriguez presents today with her for routine follow up. They note that she continues to have fevers once a month with associated confusion and generalized weakness. They will persist for 7-10 days before resolving. She just got over a spell of this and fell several times. She remains on vancomycin four times a day for her c. Diff. Still has loose stools. This worsens when she stops the vancomycin. Discussed VOWST - she and her are agreeable to trying this if we can get the approval. Blood sugars have been well controlled. I provided her with advanced directive information but her feels this is already on file with their capsule filler. PMH: Patient Active Problem List Diagnosis Code Other allergic rhinitis J30.89 Other specified glaucoma H40.89 LUMB-LUMBOSAC DISC DEGEN M51.37 Carpal tunnel syndrome G56.00 Slow transit constipation K59.01 Knee joint replacement status Z96.659 Gouty arthropathy M10.9 DYSLIPIDEMIA, GOAL LDL BELOW 100 E78.5 Vitamin D deficiency E55.9 Chronic drug-induced interstitial lung disorders ([facility]) J70.3 B12 deficiency E53.8 Degenerative cervical spinal stenosis M48.02 Peripheral neuropathy G62.9 Abnormality of gait R26.9 Thiamine deficiency E51.9 Asthma, mild persistent J45.30 Rheumatoid arthritis involving multiple sites with positive rheumatoid factor ([facility]) M05.79 Adjustment disorder with anxious mood F43.22 Essential hypertension with goal blood pressure less than 140/90 I10 Encounter for long-term (current) use of medications Z79.899 Generalized osteoarthritis of multiple sites M15.9 Chronic obstructive pulmonary disease ([facility]) J44.9 Impingement syndrome, shoulder, left M75.42 Esophageal dysphagia R13.19 Type 2 diabetes mellitus with peripheral neuropathy ([facility]) E11.42 History of Clostridium difficile colitis Z86.19 History of rotator cuff tear Z87.39 Chronic right-sided heart failure ([facility]) I50.812 Major depressive disorder, recurrent episode, in partial remission ([facility]) F33.41 Gastroesophageal reflux disease without esophagitis K21.9 Coronary artery disease involving [place] coronary artery of [place] heart without angina pectoris I25.10 intermediate manager current use of therapeutic drug Z79.899 Age-related osteoporosis without current pathological fracture M81.0 Type 2 diabetes mellitus with hemoglobin A1c goal of less than 8.0% ([facility]) E11.9 Moderate protein-calorie malnutrition ([facility]) E44.0 Type 2 diabetes mellitus with stage 3b chronic kidney disease, without long-term current use of insulin ([facility]) E11.22, N18.32 Hypertensive heart and kidney disease with chronic right heart failure and stage 3b chronic kidney disease ([facility]) I13.0, I50.812, N18.32 Primary open angle glaucoma (POAG) of both eyes, mild stage H40.1131 History of MS (myocardial infarction) I25.2 Neutropenia ([facility]) D70.9 Cerebrovascular disease, arteriosclerotic, post-stroke I67.2, Z86.73 Mild aortic stenosis I35.0 H/O Clostridium difficile infection Z86.19 DNR (do not resuscitate) Z66 History of 2019 novel coronavirus disease (COVID-19) Z86.16 Polyneuropathy associated with underlying disease ([facility]) G63 Paroxysmal atrial fibrillation ([facility]) I48.0 Current Outpatient Medications Medication Sig Dispense Refill ONETOUCH ULTRASOFT LANCETS MISC Check BS twice daily. E 11.9 1 Box Dosing Unit 11 Nystatin (NYSTOP) 703753 UNIT/GM powder APPLY TOPICALLY TO AFFECTED AREA 3 TIMES A DAY. SPRINKLE OVER AFFECTED AREA. 15 g 2 Blood Glucose Monitoring Suppl ([place] ULTRA SYSTEM) w/Device KIT Twice daily. Dx E 11.9 1 Kit 0 Glucose Blood (Yingke IndustrialTOUCH ULTRA BLUE) STRP Check BS twice daily E11.9 100 Strip 11 betamethasone dipropionate (DIPROSONE) 0.05 % cream Apply topically to affected area 2 times a day.To affected area. (Patient taking differently: Apply topically to affected area 2 times a day as needed. To affected area.) 45 g 1 Respiratory Therapy Supplies (NEBULIZER/TUBING/MOUTHPIECE) KIT Menthol-Zinc Oxide 0.44-20.6 % External Ointment (Calmoseptine) Apply 6 %(Oxygen) topically to affected area as needed. 1 application ext bid Acetaminophen 325 MG Oral Tablet Take 1 Tablet by mouth as needed. Culturelle Kids Oral Packet Take 1 Packet by mouth in the morning and 1 Packet before bedtime. 60 Each 0 Fluticasone Furoate-Vilanterol 200-25 MCG/ACT Inhalation Aerosol Powder Breath Activated (BREO ellipta) Inhale 1 Puff by mouth in the morning. Rinse mouth after use. 180 Blister Dosing Unit 3 Ferrous Sulfate 325 (65 Fe) MG Oral Tablet (Feosol) Take 1 Tablet by mouth daily with breakfast. 30Tablet 0 Vitamin D3 50 MCG (2000 UT) Oral Capsule Take 1 Capsule by mouth in the morning. 30 Capsule 0 B-12 1000 MCG Oral Capsule 2000mcg Thursday, Thursday, and Thursday 30 Capsule 0 Centrum Silver 50+Women Oral Tablet Take 1 Tablet by mouth in the morning. 30 Tablet 0 Levalbuterol HCl 1.25 MG/3ML Inhalation Nebulization Solution (Xopenex) via nebulizer every 4 hoursas needed for SOB or cough and wheezing Dx: Asthma J45.30 72 mL 3 Ocuvite-Lutein Oral Capsule Take 1 Capsule by mouth in the morning. 30 Capsule 0 Metoprolol Succinate ER 25 MG Oral Tablet Extended Release 24 Hour (toPROL XL) TAKE ONE TABLET BY MOUTH EVERY MORNING 100 Tablet 1 predniSONE 5 MG Oral Tablet (Deltasone) TAKE ONE TABLET BY MOUTH EVERY DAY 90 Tablet 1 Folic Acid 1 MG Oral Tablet Take 1 Tablet by mouth daily. 100 Tablet 2 Latanoprost 0.005 % Ophthalmic Solution (Xalatan) INSTILL 1 DROP INTO BOTH EYES AT BEDTIME 7.5 mL 0 DULoxetine HCl 30 MG Oral Capsule Delayed Release Particles (Cymbalta) Take 2 Capsules by mouth daily. 200 Capsule 1 Thiamine HCl 100 MG Oral Tablet (vitamin B-1) TAKE 1/2 TABLET BY MOUTH DAILY. 45 Tablet 1 Rosuvastatin Calcium 20 MG Oral Tablet (Crestor) Take 1 Tablet by mouth in the morning. (Patient taking differently: Take 1 Tablet by mouth at bedtime.) 90 Tablet 3 Solifenacin Succinate 10 MG Oral Tablet (VESIcare) TAKE ONE TABLET BY MOUTH EVERY DAY IN THE MORNING 90 Tablet 3 Albuterol Sulfate (2.5 MG/3ML) 0.083% Inhalation Nebulization Solution Inhale 1 Vial via nebulizer.Use as directed, if needed, for shortness of breath or wheezing amLODIPine Besylate 10 MG Oral Tablet (Norvasc) TAKE ONE TABLET BY MOUTH EVERY MORNING 100 Tablet 3 Triamcinolone Acetonide 0.1 % External Cream (Aristocort) Apply topically to affected area 2 times a day. To affected area. 80 g 1 Montelukast Sodium 10 MG Oral Tablet (Singulair) Take 1 Tablet by mouth in the morning. 100 Tablet 3 Pantoprazole Sodium 40 MG Oral Tablet Delayed Release (Protonix) take 1 tablet by mouth daily 30 to60 minutes before the first meal of the day 100 Tablet 3 Clopidogrel Bisulfate 75 MG Oral Tablet (pLAVix) Take 1 Tablet by mouth in the morning. 100 Tablet 3 Hydroxychloroquine Sulfate 200 MG Oral Tablet (Plaquenil) Take 1 Tablet by mouth at bedtime. 30 Tablet 0 Vancomycin HCl 125 MG Oral Capsule (Vancocin) Take 1 Capsule by mouth every 6 hours. 360 Capsule 0 amLODIPine Besylate 10 MG Oral Tablet (Norvasc) Take 1 Tablet by mouth in the morning. (Patient nottaking: Reported on 07/10/2023) 100 Tablet 3 Albuterol Sulfate HFA 108 (90 Base) MCG/ACT Inhalation Aerosol Solution Inhale 2 Puffs by mouth every 4 hours as needed for Cough, Shortness of Breath or Wheezing. 18 g 2 Magnesium Oxide 400 (240 Mg) MG Oral Tablet (Mag-Ox) Take 1 Tablet by mouth in the morning and 1 Tablet before bedtime. (Patient not taking: Reported on 06/03/2023) 60 Tablet 0 Zoster Vac Recomb Adjuvanted 50 MCG/0.5ML Intramuscular Suspension Reconstituted (Shingrix) Inject 0.5 mL into a large muscle now and repeat dose in 60 to 180 days Given at [facility] (Patient not taking: Reported on 06/03/2023) 1 Each 1 No current facility-administered medications for this visit. Review of patient's allergies indicates: Allergen Reactions Ciprofloxacin Bleeding And rash Influenza Virus Vaccine [Influenza Virus Vac Live Quad] 2 years ago, flown to [facility] Methotrexate pneumonitis Other Allergy (See Comments) Rash Insecticides cause breathing problems Penicillins Hives Ranitidine Rash Objective: BP 92/50 | Pulse 70 | Temp 36.5 C (97.7 F) | Wt 58.1 kg (128 lb) | SpO2 98% | BMI 26.75 kg/m | BSA 1.54 m General: alert, healthy, no distress, well nourished, and well developed Neck: supple, no adenopathy, thyroid normal size, non-tender, without nodularity Heart: regular rate & rhythm and no murmur Lungs: chest symmetric with normal AP diameter, no chest deformities noted, normal respiratory rateand rhythm, lungs clear to auscultation Abdomen: abdomen soft and non-tender Extremities: no joint deformities, effusion, or inflammation, no edema Neuro Exam: alert & oriented x 3 with fluent speech, no focal motor/sensory deficits, gait normal Skin: skin color, texture, turgor are normal, no rashes or significant lesions ASSESSMENT/PLAN: Type 2 diabetes mellitus with hemoglobin A1c goal of less than 8.0% ([facility]) (Primary) - controlled off meds. - HEMOGLOBIN A1C; Future; Expected date: 07/10/2023 - ADULT/PEDS OPHTHALMOLOGY/OPTOMETRY REFERRAL OP Neutropenia, unspecified type ([facility]) - with recurrent fevers. H/O Clostridium difficile infection - continue vancomycin. Will work on prior [employer] assistance program for VOWST. - Vowst Oral Capsule (Fecal Microb Spores, Live-brpk); Take 4 Capsules by mouth in the morning for 3 days. - CLOSTRIDIUM DIFFICILE, PCR; Future; Expected date: 07/10/2023 assisted current use of therapeutic drug - PHOSPHORUS; Future; Expected date: 07/10/2023 - CBC WITH WBC DIFFERENTIAL; Future; Expected date: 07/10/2023 Gastroesophageal reflux disease without esophagitis Major depressive disorder, recurrent episode, in partial remission (HCC) Essential hypertension with goal blood pressure less than 140/90 Rheumatoid arthritis involving multiple sites with positive rheumatoid factor (HCC) - Wheelchair; 1 small wheelchair. Thiamine deficiency - continue supplementation. B12 deficiency - VITAMIN B12; Future; Expected date: 07/10/2023 Generalized weakness - Wheelchair; 1 small wheelchair. Personal history of fall - Wheelchair; 1 small wheelchair. Other orders - Metoprolol Succinate ER 25 MG Oral Tablet Extended Release 24 Hour (toPROL XL); Take 1 Tablet by mouth in the morning. - amLODIPine Besylate 5 MG Oral Tablet (Norvasc); Take 1 Tablet by mouth in the morning. Follow-up: Return in about 6 months (around 01/09/2024). | Check-out note: Labs today. Leni Moyer DO I spent a total of 40-54 minutes (exact time 50 mins) on the date of service in preparation, delivery, and documentation of the care provided to Belem Rodriguez excluding any time spent in the performance of separately billed services. documented in this encounter Plan of Treatment Upcoming Encounters Date Type Department Care Team (Late st Contact Info) Description 08/10/2023 10:40 AM EST Office Visit Rheumatology [address] [place] [phone] Brandon Lewis MD [address] [place] [address] [place] [phone] 01/29/2024 3:10 PM EDT Office Visit Family Medicine [address] [place] [phone] Leni Moyer DO [address] [place] [address] [place] [id number] Pending Results Name Type Priority Associated Diagnoses Date /Time HEMOGLOBIN A1C Lab Routine Type 2 diabetes mellitus with hemoglobin A1c goal of less than 8.0% (HCC) 07/10/2023 4:19 PM EDT PHOSPHORUS Lab Routine intermediate manager current use of therapeutic drug 07/10/2023 4:19 PM EDT CBC WITH WBC DIFFERENTIAL Lab Routine intermediate manager current use of therapeutic drug 07/10/2023 4:19 PM EDT VITAMIN B12 Lab Routine B12 deficiency 07/10/2023 4:19 PM EDT Scheduled Orders Name Type Priority Associated Diagnoses Orde r Schedule HEMOGLOBIN A1C Lab Routine Type 2 diabetes mellitus with hemoglobin A1c goal of less than 8.0% (HCC) Expected: 07/10/2023 (Approximate), Expires: 07/09/2024 PHOSPHORUS Lab Routine assisted current use of therapeutic drug Expected: 07/10/2023 (Approximate), Expires: 07/09/2024 CLOSTRIDIUM DIFFICILE, PCR Lab Routine H/O Clostridium difficile infection Expected: 07/10/2023 (Approximate), Expires: 07/09/2024 CBC WITH WBC DIFFERENTIAL Lab Routine intermediate manager current use of therapeutic drug Expected: 07/10/2023 (Approximate), Expires: 07/10/2024 VITAMIN B12 Lab Routine B12 deficiency Expected: 07/10/2023 (Approximate), Expires: 07/09/2024 Scheduled Referrals Name Type Priority Associated Diagnoses Orde r Schedule ADULT/PEDS OPHTHALMOLOGY/OPTOM ETRY REFERRAL OP Referral Within 10 days (routine) Type 2 diabetes mellitus with hemoglobin A1c goal of less than 8.0% (HCC) Ordered: 07/10/2023 Health Maintenance Due Date Last Done Comments Alpha-1 Antitrypsin 1963 Hepatitis B (1 of 3 - Risk 3-dose series) 2007 DTaP,Tdap,and Td Vaccines (2 - Td or Tdap) 10/02/2020 10/02/2010, 10/31/2004 *BISPHONATE OR OTHER ACCEPTABLE MEDICATION NEEDED FOR OSTEOPOROSIS (REFER TO SMARTSET #1146) 06/28/2022 CKD PHOS USE SMARTSET 54414 04/15/2023 08/0 10/2021, 03/12/2021, 07/19/2019, Additional history [...] Additional history exists CKD HGB USE SMARTSET 54323 05/27/202405/27, 05/27/2023, 10/15/2022, Additional history exists O2 ASSESSMENT COMPLETED IN PAST YEAR FOR COPD 06/03/2024 06/03/2023 DXA Scan 05/04/2025 05/04/2023, 03/14, 01/18/2013 Pneumococcal Vaccine: 65+ Years Completed 03/05/2017, 06/28/2015, 11/25/2011, Additional history exists Fecal Occult Blood Test Discontinued 09/23/19, 08/06/2018, 02/21/2004 VITAMIN D LEVEL ONCE IN A LIFETIME-USE SMARTSET# [id number] Completed 10/18/2020, 03/06/2020, 03/26/2018, Additional history exists [...] this encounter Medical Devices Implanted Type Area Wire Strander Device Identifier Shelf Expiration Date Model / Serial / Lot Lens 19.5 Sn60wf - [id number] - [id number] Implanted:Qty: 1 on 11/21/2016 by Faraz Jeffers MD at [facility] Left: Eye RAMÓN : SURGICAL 05/14/2021 [id number].1 95 / [id number] / Lens 19.5 Sn60wf - [id number] - [id number] Implanted:Qty: 1 on 04/22/2019 by Faraz Jeffers MD at [facility] Right: Eye RAMÓN : SURGICAL 07/14/2023 [id number].[id number] / [id number] / documented as of this encounter Visit Diagnoses Diagnosis Type 2 diabetes mellitus with hemoglobin A1c goal of less than 8.0% ([facility])- Primary Neutropenia, unspecified type ([facility]) H/O Clostridium difficile infection Personal history of other infectious and parasitic disease intermediate manager current use of therapeutic drug Gastroesophageal reflux disease without esophagitis Esophageal reflux Major depressive disorder, recurrent episode, in partial remission ([facility]) Major depressive disorder, recurrent episode, in partial or unspecified remission Essential hypertension with goal blood pressure less than 140/90 Rheumatoid arthritis involving multiple sites with positive rheumatoid factor ([facility]) Thiamine deficiency Other and unspecified manifestations of thiamine deficiency B12 deficiency Other B-complex deficiencies Generalized weakness Other malaise and fatigue Personal history of fall documented in this encounter Advance Directives Latest [...] and were consensually agreed upon. Care Teams Basket Grader Relationship Specialty Start Date End Date Leni Moyer DO [address] [place] [address] [place] [phone] PCP - General Internal Medicine 11/18/17 documented as of this encounter"
--- OUTSIDE RECORDS SUMMARY | 2023-09-05 18:40 | External Medical Summary | Summary of Care ---
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 E 11.9 1 Box Dosing Unit 11 12/15/2016 Active Nystatin (NYSTOP) 054747 UNIT/GM powderIndications:Cu taneous candidiasis APPLY TOPICALLY TO AFFECTED AREA 3 TIMES A DAY. SPRINKLE OVER AFFECTED AREA. 15 g 2 12/15/2016 Active Blood Glucose Monitoring Suppl ([email or web address] ULTRA SYSTEM) w/Device KIT Twice daily. 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 2019 Chronic right-sided heart failure 11/03/2019 Major depressive disorder, r ecurrent episode, in partial remission 11/03/2019 Last Assessment & Plan: Managed well with Cymbalta 60 mg daily Gastroesophageal reflux disease without esophagi tis 11/03/2019 Last Assessment & Plan: Managed with pantoprazole 40 mg daily Coronary artery disease invo lving cheesh-na coronary artery of cheesh-na heart without angina pectoris 11/03/2019 Last Assessment [...] ICD-10 update of inactive term LOC PRIM [id number] 04/12/200310/2016 PURE HYPERCHOLESTEROLEM 12/27/200107/16 Asthma with severity [...] moderate 12/05/2014 CAD (coronary artery disease ), cheesh-na coronary artery 02/24/2022 Overview: duplicate documented as [...] 08/10/2023 10:40 AM EST Office Visit Rheumatology [address] [place] [phone] Brandon Lewis MD [address] [place] [address] [place] [id number] 01/29/2024 3:10 PM EDT Office Visit Family Medicine [address] [place] [phone] Leni Moyer[address] [place] [address] Pending Results Name Type Priority Associated Diagnoses Date /Time HEMOGLOBIN A1C Lab Routine Type 2 diabetes mellitus with hemoglobin A1c goal of less than 8.0% (HCC) 07/10/2023 4:19 PM EDT PHOSPHORUS Lab Routine 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 drug 07/10/2023 4:19 PM EDT CBC WITH WBC DIFFERENTIAL Lab Routine 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 drug 07/10/2023 4:19 PM EDT VITAMIN B12 Lab Routine B12 deficiency 07/10/2023 4:19 PM EDT CBC Lab Routine 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 drug 07/10/2023 4:19 PM EDT DIFFERENTIAL, AUTOMATED Lab Routine 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 drug 07/10/2023 4:19 PM EDT Health Maintenance Due Date Last Done Comments Alpha-1 Antitrypsin 1963 Hepatitis B (1 of 3 - Risk 3-dose series) 2007 DTaP,Tdap,and Td Vaccines (2 - Td or Tdap) 10/02/2020 10/02/2010, 10/31/2004 *BISPHONATE OR OTHER ACCEPTABLE MEDICATION NEEDED FOR OSTEOPOROSIS (REFER TO SMARTSET #1146) 06/28/2022 CKD PHOS USE SMARTSET 86008 04/15/2023 0810/2021, 03/12/2021, 07/19/2019, Additional history exists [...] Additional history exists CKD HGB USE SMARTSET 43946 05/27/202405/27, 05/27/2023, 10/15/2022, Additional history exists O2 ASSESSMENT COMPLETED IN PAST YEAR FOR COPD 06/03/2024 06/03/2023 DXA Scan 05/04/2025 05/04/2023, 03/14, 01/18/2013 Pneumococcal Vaccine: 65+ Years Completed 03/05/2017, 06/28/2015, 11/25/2011, Additional history exists Fecal Occult Blood Test Discontinued 09/23/19, 08/06/2018, 02/21/2004 VITAMIN D LEVEL ONCE IN A LIFETIME-USE SMARTSET# [id number] Completed 10/18/2020, 03/06/2020, 03/26/2018, Additional history exists [...] this encounter Medical Devices Implanted Type Area Custom Ski Maker Device Identifier Shelf Expiration Date Model / Serial / Lot Lens 19.5 Sn60wf - [id number] - [id number] Implanted:Qty: 1 on 11/21/2016 by Faraz Jeffers MD at OR [facility] Left: Eye RAMÓN : SURGICAL 05/14/2021 SN60WF.1 95 / [id number] / Lens 19.5 Sn60wf - [id number] - [id number] Implanted:Qty: 1 on 04/22/2019 by Faraz Jeffers MD at OR [facility] Right: Eye RAMÓN : SURGICAL 07/14/2023 SN60WF.195 / [id number] / documented as of this encounter Visit Diagnoses Diagnosis Type 2 diabetes mellitus with hemoglobin A1c goal of less than 8.0% (HCC) residential current use of therapeutic drug B12 deficiency [...] and were consensually agreed upon. Care Teams Rental Representative Relationship Specialty Start Date End Date Leni Moyer DO [address] [place] [address] [place] [id number] PCP - General Internal Medicine 11/18/17 documented as of this encounter
--- OUTSIDE RECORDS SUMMARY | 2023-09-05 18:40 | External Medical Summary ---
Author Name Unknown Address Unknown Organization K01:[facility] [place] [address] [place] [address] Laboratory Report Ordering Provider Test Date Status MEREDITH OROZCO 07/14/2023 09:26:17 Final Observation Date Value Abnormality Reference (Units) Status Source 07/14/2023 09:26:17 Semi-liquid Final Clostridioides difficile toxin and [id number] strain DNA panel - Stool by RICHARD with probe detection 07/14/2023 09:26:17 Negative. No C. difficile toxin B gene DNA detected by PCR (Amplified Probe). Negative Final Performing Location [facility] [place] [address] [place] [address]
--- OUTSIDE RECORDS SUMMARY | 2023-09-05 18:41 | External Medical Summary | Summary of Care ---
Author Name Unknown Organization [facility] Address [address] [place] [address] Phone [phone] Care Team Providers Care Bee Keeper Name Role Phone Leni Moyer DO Primary Care Provider [phone] Reason for Referral * Evaluate & Treat - Unlimited Visits (Within 3 days (urgent)) - Authorized Specialty Diagnoses / Procedures Referred By Erwin velez Referred To Contact Fire Technician Diagnoses Hospital discharge follow-up Leni Moyer DO [address] [place], [place] [address] [id number] Referral ID Status Reason Start Date Expiration Date Visits Requested Visits Authorized [id number] Authorized Specialty Services Required 05/14/2023 1 1 Question Answer Referral Priority Within 3 days (urgent) Program Type Case Management Complex Case Management [facility] Health Device(s) Requested Other (See Comment) - post discharge IVR calls Alarm Settings Standard per protocol Any specialized instructions wkly x 4, on at 3 PM, starting 05/21/23. [phone]. Thank you. Encounter Details Date Type Department Care Team Description 05/14/2023 Fire TechnicianLeather Whitener Medicine [address] [id number] Yvonne Cherry, RN [address] [place] [address] Medical home patient encounter*; Hospital discharge follow-up; UTI (urinary tract infection); History of ESBL Klebsiella pneumoniae infection; Metabolic encephalopathy; Coronary artery disease involving [place] coronary artery of [place] heart without angina pectoris; Type 2 diabetes mellitus with hemoglobin A1c goal of less than 8.0% ([facility]); Advanced care planning/counseling discussion Allergies Active Allergy Reactions Severity Noted Date Comments Ciprofloxacin Bleeding High 05/27/2023 And rash Influenza Virus Vac Live Quad High 2020 2 years ago, flown to [facility] Methotrexate 08/19/2013 pneumonitis Other Allergy (See Comments) Rash 012 Insecticides cause breathing problems Penicillins Hives 02/01/2001 Ranitidine Rash 07/14/2001 documented as of this encounter (statuses as of 06/15/2023) Medications Medication Sig Dispensed Refills Start Date End Date Status ONETOUCH ULTRASOFT LANCETS MISC Check BS twice daily. E 11.9 1 Box Dosing Unit 11 12/15/2016 Active Nystatin (NYSTOP) 025436 UNIT/GM powderIndications:C utaneous candidiasis APPLY TOPICALLY TO AFFECTED AREA 3 TIMES A DAY. SPRINKLE OVER AFFECTED AREA. 15 g 2 12/15/2016 Active Blood Glucose Monitoring Suppl (DVS IntelestreamTOUCH ULTRA SYSTEM) w/Device KIT Twice daily. Dx E 11.9 1 Kit 0 12/25/2017 Active Glucose Blood (ONETOUCH ULTRA BLUE) STRPIndications:Typ e 2 diabetes mellitus with hemoglobin A1c goal of less than 7.0% ([facility]) Check BS twice daily E11.9 100 Strip [...] before bedtime. 60 Each 0 10/01/2022 Active Hydroxychloroquine Sulfate 200 MG Oral Tablet (Plaquenil) Take 1 Tablet by mouth at bedtime. 30 Tablet 0 10/01/2022 Active Fluticasone Furoate-Vilanterol 200-25 MCG/ACT [...] in 60 to 180 days Given at [facility] 1 Each 1 12/29/2022 Active Additional Information Patient not taking.Reported on 06/03/2023 Vancomycin HCl 125 MG Oral Capsule (Vancocin) Take 1 Capsule by mouth every 6 hours. 360 Capsule 0 03/18/2023 Active Metoprolol Succinate ER 25 MG Oral [...] shortness of breath or wheezing 0 Active triamcinolone acetonide (ARISTOCORT) 0.1 % creamIndications:Pr uritic condition Apply topically to affected area 2 times a day. To affected area. 60 g 5 07/23/2017 05/27/20 Discontinu ed(Medicat ion/Dose Changed) Solifenacin Succinate 10 MG Oral Tablet (VESIcare) Take 1 Tablet by mouth in the morning. 90 Tablet 3 10/01/2022 05/14/20 Discontinu ed(Medicat ion List Clean Up) Pantoprazole Sodium 40 MG Oral Tablet Delayed Release (Protonix)Indicatio ns:Gastroesophageal reflux disease, unspecified whether esophagitis present 1 tablet by mouth daily 30 to 60 minutes before the first meal of the day 100 Tablet 3 10/01/2022 06/15/20 Discontinu ed(Refill) Montelukast Sodium 10 MG Oral Tablet (Singulair) Take 1 Tablet by mouth in the morning. 100 Tablet 3 10/01/2022 06/08/20 Discontinu ed(Refill) Clopidogrel Bisulfate 75 MG Oral Tablet (pLAVix) Take 1 Tablet by mouth in the morning. 100 Tablet 3 10/01/2022 06/15/20 Discontinu ed(Refill) Proventil HFA 108 (90 Base) MCG/ACT Inhalation Aerosol Solution Inhale 2 Puffs by mouth every 4 hours as needed for Wheezing. 8 g 0 10/01/2022 05/14/20 Discontinu ed(Medicat ion List Clean Up) Potassium Chloride Lisette ER 20 MEQ Oral Tablet Extended Release Take 2 Tablets by mouth in the morning. 100 Tablet 3 11/26/2022 05/14/20 Discontinu ed(Medicat ion List Clean Up) Mirtazapine 15 MG Oral Tablet (Remeron) TAKE ONE TABLET BY MOUTH AT BEDTIME 100 Tablet 3 11/04/2022 05/14/20 Discontinu ed(Medicat ion List Clean Up) Ciprofloxacin HCl 500 MG Oral Tablet (Cipro) Take 1 Tablet by mouth in the morning and 1 Tablet before bedtime. 0 05/27/20 Discontinu ed(Medicat ion/Dose Changed) documented as of this encounter (statuses as of 06/15/2023) Active Problems Problem Noted Date Polyneuropathy associated with underlyin g disease 10/15/2022 Paroxysmal atrial fibrillation 3 History of 2019 novel coronavirus diseas e (COVID-19) 09/18/2022 DNR (do not resuscitate) 09/17/2022 H/O Clostridium difficile infection 08/15 Primary open angle glaucoma (POAG) of froilan th eyes, mild stage 04/02/2022 History of NM (myocardial infarction) Neutropenia 04/02/2022 Last Assessment & Plan: Cbc 04/18/22 WBC 2.6 No infectious sx Following with heme/onc Cerebrovascular disease, arterioscleroti c, post-stroke 04/02/2022 Overview: MRI brain 03/21/22--acute infarct in [...] Norvasc 10 mg daily Moderate protein-calorie malnutrition Type 2 diabetes mellitus with hemoglobin A1c goal of less than 8.0% 11/25/2021 Age-related osteoporosis without current pathological fracture 06/08/2020 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 g 03/06/2020 Chronic right-sided heart failure 2019 Major depressive disorder, recurrent epi sode, in partial remission 11/03/2019 Last Assessment & Plan: Managed well with Cymbalta 60 mg daily Gastroesophageal reflux disease without esophagitis 11/03/2019 Last Assessment & Plan: Managed with pantoprazole 40 mg daily Coronary artery disease invo lving [place] coronary artery of [place] heart without angina pectoris 11/03/2019 Last Assessment & Plan: Stable Continue BB, statin History of Clostridium difficile colitis 05/20/2019 Last Assessment & Plan: No diarrhea reported Continue chronic vancomycin 125 mg daily History of rotator cuff tear 05/20/2019 Type 2 diabetes mellitus with peripheral neuropathy 05/10/2019 Esophageal dysphagia 03/01/2019 Impingement syndrome, shoulder, left Chronic obstructive pulmonary disease Last Assessment & Plan: Continue Breo 1 puff daily, albuterol prn, Generalized osteoarthritis of multiple s ites 04/15/2017 Encounter for long-term (current) use of medications 09/02/2016 Adjustment disorder with anxious mood Essential hypertension with goal blood p ressure less than 140/90 03/13/2016 Rheumatoid arthritis involvi ng multiple sites with positive rheumatoid factor 03/05/2016 Last Assessment & Plan: Follows with Rheum Continue prednisone 5 mg daily Asthma, mild persistent 07/18/2015 Thiamine deficiency 08/15/2013 Peripheral neuropathy 08/12/2013 Abnormality of gait 08/12/2013 B12 deficiency 07/28/2013 Chronic drug-induced interstitial lung d isorders 06/06/2013 Overview: Methotrxate Vitamin D deficiency 04/11/2010 DYSLIPIDEMIA, GOAL LDL BELOW 100 009 Overview: Per Lipid Taxonomy. Gouty arthropathy 06/28/2009 Overview: ICD-9 Code Update ICD-10 update of inactive term Knee joint replacement status 12/14/2007 Slow transit constipation 11/19/2005 LUMB-LUMBOSAC DISC DEGEN 07/16/2005 Carpal tunnel syndrome 07/16/2005 Other allergic rhinitis 12/15/2003 Overview: ICD-10 update of inactive term Other specified glaucoma Degenerative cervical spinal stenosis documented as of this encounter (statuses as of 06/15/2023) Resolved Problems Problem Noted Date Resolved Date Pressure ulcer of sacral region, unstageable 09/202204/08/2023 Closed nondisplaced fracture of triquetrum of left wrist with routine healing 09/07/2022 04/08/2023 Migraine 04/02/2022 04/02/2022 Thrombocytopenia 04/02/2022 10/15/2022 Prediabetes 06/17/2021 11/25/2021 Chronic kidney disease, stage 3b 01/22/2021 2022 Overview: Per CKD protocol Hypertensive kidney disease with stage 3b chronic kidney disease 08/27/2020 11/03/2022 Overview: Per CKD protocol - Per CKD protocol Hypertensive kidney disease with stage 3a chronic kidney disease 07/23/2020 08/30/2020 Overview: Per CKD protocol Major 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 difficile diarrhea 03/28/2019 05/20/2019 Food insecurity 03/21/2019 04/30/2021 Overview: Per [facility] Protocol Type 2 diabetes mellitus wit h hemoglobin A1c goal of less than 8.0% 03/01/2019 06/17/2021 Food insecurity 10/25/2018 03/18/2019 Overview: Per [facility] Protocol Postextubation stridor 07/28/2018 9 Leukocytosis 07/28/2018 03/01/2019 Encephalopathy acute 07/24/2018 10/13/2018 Left lower lobe pneumonia 07/24/20182018 Food insecurity 04/27/2018 10/13/2018 Overview: Per [facility] Protocol Controlled diabetes mellitus with diabetic polyn europathy 04/12/2018 05/10/2019 MEDICATION USE AGREEMENT 07/31/2017 022 Controlled substance agreement signed 02/19/2017 12/06/2021 Primary osteoarthritis of right shoulder 016 04/15/2017 Type 2 diabetes mellitus wit h diabetic chronic kidney disease 04/03/2015 06/17/2021 HTN, goal below 140/90 12/05/2014 6 Hypertension goal BP (blood pressure) < 140/80 1 10/01/2013 12/05/2014 Persistent insomnia 03/29/2013 12/26/2013 Rheumatoid arthritis 11/25/2011 03/05/2016 Asthma, moderate persistent 05/31/201011/13 Asthma with severity to be determined 03/07/2010 05/31/2010 Overview: Per Asthma Taxonomy ICD-10 update of inactive term Severe obesity with body mas s index (BMI) of 35.0 to 39.9 with serious comorbidity 12/10/2009 08/31/2018 Overview: Per Obesity Taxonomy ICD-10 update of inactive diagnosis Major depressive disorder 11/23/20092015 Overview: ICD-10 update of inactive term HTN, goal below 130/80 09/05/2009 4 HTN, goal below 140/90 07/20/2009 9 Overview: Modified per HTN Taxonomy. DM TYPE 2 CAUSING RENAL DZ 07/12/200910/04 Overview: Per Diabetes Taxonomy. Type 2 diabetes mellitus wit h hemoglobin A1c goal of less than 7.0% 07/12/2009 03/01/2019 Overview: Per Diabetes Taxonomy. ICD-10 update of inactive term Type 2 diabetes mellitus wit h hemoglobin A1c goal of less than 7.0% 07/11/2008 07/12/2009 Overview: Per Diabetes Taxonomy. ICD-10 update of inactive term DM type 2, not at goal 03/03/2007 8 Mixed dyslipidemia 03/03/2007 08/21/2009 Overview: Per Lipid Taxonomy. Gastroparesis 01/11/2007 03/18/2019 LOC PRIM OSTEOART-SHLDER 09/02/2006 009 GENERAL OSTEOARTHROSIS 08/05/2006 7 INTRINSIC ASTHMA UNSPEC 05/06/2006 03/07/20 10 ADVANCE DIRECTIVE INFORMATION 11/19/2005 Overview: No, Advance Directive brochure offered , patient declined. No, Advance Directive brochure given to patient at prior appointment. GENERAL OSTEOARTHROSIS 07/16/2005 8 OPEN WOUND ARM MULT-NOS 11/05/2004 12/06/19 08 Gouty arthropathy 02/27/2004 06/28/2009 Overview: ICD-9 Code Update ICD-10 update of inactive term LOC PRIM [id number] 04/12/2003 04/15/20 17 PURE HYPERCHOLESTEROLEM 12/27/2001 08/03/20 07 Asthma with severity to be determined 12/07/2007 Overview: ICD-10 update of inactive term OBESITY, UNSPECIFIED 12/10/2009 Overview: Per Obesity Taxonomy Rotator cuff rupture 05/20/2019 BENIGN HYPERTENSION 07/20/2009 Overview: Modified per HTN Taxonomy. Esophageal reflux 02/24/2022 Overview: Duplicate Type 2 diabetes mellitus wit h hemoglobin A1c goal of less than 7.0% 05/04/2007 Overview: ICD-10 update of inactive term DIAB RENAL MANIF ADULT 9 Overview: Per Diabetes Taxonomy. Knee joint replacement status Abnormal results of liver function studies 12/26/2013 Kidney disease, chronic, stage III (GFR 30-59 ml /min) 05/27/2019 COPD, moderate 12/05/2014 CAD (coronary artery disease), [place] coronary a rtery 02/24/2022 Overview: duplicate documented as of this encounter (statuses as of 06/15/2023) Immunizations Name Administration Dates Next Due COVID-19 [...] = 0.6 oz pur e alcohol) ocassional Food Insecurity Answer Date Recorded Within the past 12 months, y ou worried that your food would run out before you got money to buy more. Never true 05/20/2019 Within the past 12 months, t he food you bought just didn't last and you didn't have money to get more. Never true 05/20/2019 Sex Assigned at Date Recorded Not on file Job Start Date Occupation Industry Not on file Not on file Not on file documented as of this encounter Progress Notes * Yvonne Cherry RN - 06/15/2023 6:02 PM EDT Disenrolled from post discharge IVR calls. * Yvonne Cherry RN - 05/14/2023 4:18 PM EDT Fire Technician Progress Note: Date: 05/14/23 Assigned Patient Tier: 2 Connected with spouse via telephone. Verified patient name/. Advised patient that call is being recorded for quality and training purposes. Assessment: Spouse noted the following: alert, oriented, pleasant. Reports overall condition as "tired", "not too bad". Not active with home health. Lives with spouse. Ramp entrance to home. One 4" step into living room. Spouse drives, but their car is broke down, and he is driving son's pick up driver. Too high for patient to get into. Has to use a step, and then help her in. Needs assist with ADL's. Dependent for IADL's. Has a caregiver that comes 2 x wk on Tuesdays and , 5 hours each day. Ambulating with assist of spouse's arm, indoors and outdoors. Denies falls. Occasional dizziness. Wears glasses.Sees triple. Has to close on eye to only see one of anything. To be getting new glasses with prismsin them to correct vision. No issues with hearing. No reports of chest pain. Denies edema/swelling.Breathing reported as "okay". No nebulizer or rescue inhaler use in quite a while. Does not always take her Breo daily. "Little bit" of dry cough. Non smoker. Has some redness/excoriation under rightbreast. Using triamcinolone cream. Bowels: spouse reports patient hasn't had a solid bowel movementin 2 years, ever since she got C-diff. Still being treated for C-diff with vancomycin. Bowels move 1-3 x day. Voids without issue. Some incontinence. Uses Calmoseptine oint when needed for skin irritation. Denies pain or headaches. Sleeping "a lot". Sleeping now. "A bit forgetful, occasionally." For the past 6 weeks, patient has been talking about her mother as if she is still alive. Spouse manages her medications. New med, Cipro, picked up, and taking as ordered. Uses med planners with AM/PM slots only. Uses 2 of them. Eating and drinking okay. Did not check blood sugar today. Ongoing discussion related to Advance Directives. Spouse thinks they completed the forms previously sent.He will look around for them, if finds them, will bring to tomorrow's appointment to be scanned into patient's chart. She always says "If I can be revived and not be a vegetable, then okay; but if not, let me go." That's what she always says. Confirmed hospital follow up appointment tomorrow with Dr Reese. Plans to keep as scheduled. Has an appointment in 05/27/23 - to see about getting new dentures. Did you receive an alert for an annual wellness visit? No Is this call for a hospital, long term or rehab facility discharge to home? Yes - patient was inpatient at [facility] from 05/08/23 to 05/13/23. Discharge dx: UTI secondary to Klebsiella pneumoniae ESBL, metabolic encephalopathy - resolved, CAD, type 2 diabetes. Medication Reconciliation: Medication Reconciliation completed: yes Review of Current goals: Discussed the following patient-centered CM goals with the patient during this discussion: -Prevention: Prevent admission/readmission -Status: On Track - new med picked up, reports is taking all meds as ordered, except Breo. Hospitalfollow up appointment in place and plans to keep as scheduled. Has paid caregivers twice a week. Spouse supportive. Receptive to ongoing participation with case management. -TREATMENT: Heal and maintain skin integrity -Status: On Track - has excoriation/redness under right breast, and intermittent perineal/groin irritation. Being treated with calmoseptine ointment and triamcinolone cream. Also has betamethasone cream for as needed use. No draining wounds. -Advanced Directive (AD): Patient will complete Advanced Care Planning -Status: On Track - information and forms sent previously after discussion. Spouse thinks they completed the forms. He will look for them, and if locates, will bring to tomorrow's appointment to be scanned into patient's chart. . COPD Patient: No CHF Patient: YES Scale: YES, Current Weight: unable to obtain, patient sleeping - lbs, Swelling: denies CM Plan: Reviewed 3 Red Flags with patient. Advised to call CM with any of the following: Red Flag 1: returnof urinary symptoms, Red Flag 2: falls or injuries/new or uncontrolled pain, or Red Flag 3: increased shortness of breath/cough or edema/swelling and Referral to: [facility] for home visit, home safety assessment, bottles out med rec, review proper use and cleaning/maintenance of nebulizer/inhalers. . Remote Patient Monitoring: At this time, RPM not offered/considered for patient due to not indicated, not needed. Plan for Future Contacts: Plan to follow up within 1 week to check progress on the following goals/needs - sleeping/fatigue?,area under right breast status?, cough?, dizziness?, bowel movements?, pain?, still talking about mother? Antibiotics done? Getting new dentures? Eye appointment? Advance Directives brought in ?. Planned contacts from the following parties will occur this week: [facility] Shift Nurse Manager and PCP office visit as additional contacts per workflow. Advancement/Closure Plan: Graduate patient to the next lower tier. Tier: 2 Patient provided CM contact information and encouraged to call with any changes in condition. SNP Member? No PCP Notified of enrollment in CM/HM program: Yes, previously Is Provider in agreement with POC? Yes Yvonne Cherry RN Outpatient Case Management documented in this encounter Miscellaneous Notes * ACP (Advance Care Planning) - Yvonne Cherry RN - 05/14/2023 3:48 PM EDT Patient-centered Communication 05/14/2023 The patient/surrogate voluntarily agreed to participate in advance care planning discussion. Location: telephone Individual(s) present for conversation: Spouse Decisions Synopsis SmartLink Most Recent Value Past ~10 years 10/17/2022 12:36 Decisions CPR decision: Declines CPR 10/17/2022 Declines CPR Intubation/Mechanical Ventilation decision: Patient chooses Intubation/mechanical ventilation 04/22/2022 Non-invasive ventilation or BIPAP decision: Patient chooses non-invasive ventilation. Select interventions below 04/22/2022 Antibiotic therapy decision: Patient chooses Antibiotic therapy 04/22/2022 Artificial nutrition decision: Patient chooses Artificial nutrition 04/22/2022 IV hydration decision: Patient chooses IV hydration 04/22/2022 Blood transfusion decision: Patient chooses Blood transfusion 04/22/2022 Lab draw decision: Patient chooses Lab draws 04/22/2022 Additional Comments Synopsis [employer] Most Recent Value Past ~10 years 05/14/2023 16:15 Additional Comments Additional Comments: Discussed with spouse, Florencio. Reports the thinks they filled out the forms previously sent. He will see if can find them to bring to appointment tomorrow, to be scanned into her chart. Reports she has always said "If I can be revived and not be a vegetable, the okay. If not, let me go." That's what she always says. 05/14/2023 Discussed with spouse, Florencio. Reports the thinks they filled out the forms previously sent.He will see if can find them to bring to appointment tomorrow, to be scanned into her chart. Reports she has always said "If I can be revived and not be a vegetable, the okay. If not, let me go." That's what she always says. Discerning What Matters Most to the Patient: [employer] Most Recent Value Past ~10 years 05/14/2023 16:14 Discerning What Matters Most to the Patient In their own words, patient's UNDERSTANDING of their illness is: stable 04/22/2022 Their current SYMPTOMS include: Tiredness 05/14/2023 Tiredness They say their illness has CHANGED THEIR LIFE by: Less enjoyment (quality of life);Feel like a burden to family/loved ones 06/04/2022 The patient thinks COMPLICATIONS in the future may be: More hospitalizations 06/04/2022 Was PROGNOSIS discussed? No 05/14/2023 No The patient's HOPES are: Maintain current functional abilities;Avoid further hospitalization;Avoid the long term 06/04/2022 The patient defines LIVING WELL as: being able to get out of the house more and stay in my own homewith my 06/04/2022 The patient's FEARS/WORRIES about illness are: Being a burden to family;Going to a long term 06/04/2022 "Being a vegetable", patient defines as: being on longterm life suppor 04/22/2022 The patient considers these as 'UNACCEPTABLE OUTCOMES': "Being a vegetable" (define below) 05/14/2023 "Being a vegetable" (define below) Source: Content from [facility] Aligning Care With What Matters Most: Synopsis [employer] Most Recent Value Past ~10 years 10/17/2022 12:36 Aligning Care With What Matters Most Interventions/Choices: CPR 10/17/2022 CPR Rationale for Decisions Source: Content from [employer] Program 0 minutes spent in direct [id number]-gc-[id number] discussion today, Yvonne Cherry, RN documented in this encounter Plan of Treatment Upcoming Encounters Date Type Specialty Care Team Description 07/10/2023 Office Visit Family Medicine Leni Moyer[address] [place] [id number] 08/10/2023 [facility] [address] Scheduled Referrals Name Type Priority Associated Diagnoses Orde r Schedule REMOTE PATIENT MONITORING REFERRAL Referral Within 3 days (urgent) Hospital discharge follow-up Ordered: 05/14/2023 Health Maintenance Due Date Last Done Comments Alpha-1 Antitrypsin 1963 DTaP,Tdap,and Td Vaccines (2 - Td or Tdap) 10/02/2020 10/02/2010, 10/31/2004 COVID-19 Vaccine (6 - Moderna series) 05/21/2022 03/26/2022, 05/06/2021, 05/06/2021, Additional history exists *BISPHONATE OR OTHER ACCEPTABLE MEDICATION NEEDED FOR OSTEOPOROSIS (REFER TO SMARTSET #1146) 06/28/2022 CKD PHOS USE SMARTSET 90012 04/15/2023 08/0 10/2021, 03/12/2021, 07/19/2019, Additional history exists Influenza Vaccine (FLU shot) [...] Additional history exists CKD HGB USE SMARTSET 38820 05/27/202405/27, 05/27/2023, 10/15/2022, Additional history exists O2 ASSESSMENT COMPLETED IN PAST YEAR FOR COPD 06/03/2024 06/03/2023 DXA Scan 05/04/2025 05/04/2023, 03/14, 01/18/2013 Pneumococcal Vaccine: 65+ Years Completed 03/05/2017, 06/28/2015, 11/25/2011, Additional history exists Fecal Occult Blood Test Discontinued 09/23/19, 08/06/2018, 02/21/2004 VITAMIN D LEVEL ONCE IN A LIFETIME-USE SMARTSET# 89156 Completed 10/18/2020, 03/06/2020, 03/26/2018, Additional history exists Colonoscopy Discontinued 02/14/2021, 12/14, 01/07/2017, Additional history exists Colorectal Cancer Screening Discontinued Zoster Vaccines Completed 03/02/2023, 12/29/2022 Cologuard Discontinued GARDASIL-HPV IMMUNIZATION SERIES Aged Out No longer eligible based on patient's age to complete this topic Hepatitis B Aged Out No longer eligi ble based on patient's age to complete this topic MENINGOCOCCAL (MENACTRA/MENVEO) Aged Out No longer eligible based on patient's age to complete this topic Sigmoidoscopy Discontinued documented as of this encounter Medical Devices Implanted Type Area Outcomes Analyst Device Identifier Shelf Expiration Date Model / Serial / Lot Lens 19.5 [id number] - [id number] - [id number] Implanted:Qty: 1 on 11/21/2016 by Faraz Jeffers MD at OR [facility] Left: Eye RAMÓN : SURGICAL 05/14/2021 SN60WF.1 95 / [id number] / Lens 19.5 Sn60wf - [id number] - [id number] Implanted:Qty: 1 on 04/22/2019 by Faraz Jeffers MD at OR [facility] Right: Eye RAMÓN : SURGICAL 07/14/2023 [id number] / [id number] / documented as of this encounter Visit Diagnoses Diagnosis Medical home patient encounter- Primary Other specified examination Hospital discharge follow-up Other follow-up examination UTI (urinary tract infection) Urinary tract infection, site not specified History of ESBL Klebsiella pneumoniae infection Personal history of other infectious and parasitic disease Metabolic encephalopathy Coronary artery disease involving [place] coronary artery of [place] heart without angina pectoris Type 2 diabetes mellitus with hemoglobin A1c goal of less than 8.0% ([facility]) Advanced care planning/counseling discussion Other specified counseling documented in this encounter Advance Directives Latest [...] and were consensually agreed upon. Care Teams Bee Keeper Relationship Specialty Start Date End Date Leni Moyer[address] [place] [phone] PCP - General Internal Medicine 11/18/17 documented as of this encounter
--- OUTSIDE RECORDS SUMMARY | 2023-09-05 18:41 | External Medical Summary | Summary of Care ---
Author Name Unknown Organization [facility] Address [address] [place] [address] Phone [phone] Care Team Providers Care Strip Polisher Name Role Phone Leni Moyer DO Primary Care Provider Reason for Visit * Reason Onset Date Comments case management 06/23/2023 Encounter Details Date Type Department Care Team Description 06/23/2023 Banquet Waiter/Waitress Telephone Family Medicine [address] [phone] Yvonne Cherry, RN [address] [place] [address] case management Allergies Active Allergy Reactions Severity Noted Date Comments Ciprofloxacin Bleeding High 05/27/2023 And rash Influenza Virus Vac Live Quad High 2020 2 years ago, flown to [facility] Methotrexate 08/19/2013 pneumonitis Other Allergy (See Comments) Rash 012 Insecticides cause breathing problems Penicillins Hives 02/01/2001 Ranitidine Rash 07/14/2001 documented as of this encounter (statuses as of 06/23/2023) Medications Medication Sig Dispensed Refills Start Date End Date Status ONETOUCH ULTRASOFT LANCETS MISC Check BS twice daily. E 11.9 1 Box Dosing Unit 11 12/15/2016 Active Nystatin (NYSTOP) 101445 UNIT/GM powderIndications:Cu taneous candidiasis APPLY TOPICALLY TO AFFECTED AREA 3 TIMES A DAY. SPRINKLE OVER AFFECTED AREA. 15 g 2 12/15/2016 Active Blood Glucose Monitoring Suppl ([employer] ULTRA SYSTEM) w/Device KIT Twice daily. Dx E 11.9 1 Kit 0 12/25/2017 Active Glucose Blood (Mom Made FoodsTOUCH ULTRA BLUE) STRPIndications:Type 2 diabetes mellitus with hemoglobin A1c goal of less than 7.0% ([facility]) Check BS twice daily E11.9 100 Strip [...] in 60 to 180 days Given at [facility] 1 Each 1 12/29/2022 Active [...] at bedtime. 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 03/06/2020 [...] as of this encounter (statuses as of 06/23/2023) Resolved Problems Problem Noted Date Resolved Date [...] ICD-10 update of inactive term LOC PRIM [id number] 04/12/2003 04/15/20 17 PURE HYPERCHOLESTEROLEM 12/27/2001 08/03/20 [...] COPD, moderate 12/05/2014 CAD (coronary artery disease), [place] coronary a rtery 02/24/2022 Overview: duplicate documented as of this encounter (statuses as of 06/23/2023) Immunizations Name Administration Dates Next Due COVID-19 [...] Description 07/10/2023 Office Visit Family Medicine Leni Moyer, [address] [place] [address] 08/10/2023 Office Visit Rheumatology Brandon Lewis MD [facility] [place] [address] Health Maintenance Due Date Last Done Comments Alpha-1 Antitrypsin 1963 DTaP,Tdap,and Td Vaccines (2 - Td or Tdap) 10/02/2020 10/02/2010, 10/31/2004 *BISPHONATE OR OTHER ACCEPTABLE MEDICATION NEEDED FOR OSTEOPOROSIS (REFER TO SMARTSET #1146) 06/28/2022 CKD PHOS USE SMARTSET 95512 04/15/2023 08/0 10/2021, 03/12/2021, 07/19/2019, Additional history exists COVID-19 Vaccine (2022- season) 2023 03/26/2022, 05/06/2021, 05/06/2021, Additional history [...] Additional history exists CKD HGB USE SMARTSET 45586 05/27/202405/27, 05/27/2023, 10/15/2022, Additional history exists O2 ASSESSMENT COMPLETED IN PAST YEAR FOR COPD 06/03/2024 06/03/2023 DXA Scan 05/04/2025 05/04/2023, 03/14, 01/18/2013 Pneumococcal Vaccine: 65+ Years Completed 03/05/2017, 06/28/2015, 11/25/2011, Additional history exists Fecal Occult Blood Test Discontinued 09/23/19 20, 08/06/2018, 02/21/2004 VITAMIN D LEVEL ONCE IN A LIFETIME-USE SMARTSET# [id number] Completed 10/18/2020, 03/06/2020, 03/26/2018, Additional history exists [...] this encounter Medical Devices Implanted Type Area Cloth Winder Machine Operator Device Identifier Shelf Expiration Date Model / Serial / Lot Lens 19.5 Sn60wf - [id number] - [id number] Implanted:Qty: 1 on 11/21/2016 by Faraz Jeffers MD at OR [facility] Left: Eye RAMÓN : SURGICAL 05/14/2021 SN60WF.1 95 / [id number] / Lens 19.5 Sn60wf - [id number] - [id number] Implanted:Qty: 1 on 04/22/2019 by Faraz Jeffers MD at OR [facility] Right: Eye RAMÓN : SURGICAL 07/14/2023 SN60WF.195 / [id number] / documented as of this encounter [...] and were consensually agreed upon. Care Teams Strip Polisher Relationship Specialty Start Date End Date Leni Moyer[address] [place] [address] PCP - General Internal Medicine 3/7/18 documented as of this encounter
--- OUTSIDE RECORDS SUMMARY | 2023-09-05 18:41 | External Medical Summary | Summary of Care ---
Author Name Unknown Organization [facility] [address] [facility] [address] Phone [phone] Care Team Providers Care Rate And Cost Analyst Name Role Phone Ernesto Harper DO Primary Care Provider Reason for Visit * Reason Onset Date Comments Medication Refill 06/15/2023 Encounter Details Date Type Department Care Team Description 06/15/2023 Refill Family Medicine [address] [place] [phone] Ernesto Harper DO [address] [place] [address] [place] [address] Gastroesophageal reflux disease, unspecified whether esophagitis present Allergies Active Allergy Reactions Severity Noted Date Comments Ciprofloxacin Bleeding High 05/27/2023 And rash Influenza Virus Vac Live Quad High 2020 2 years ago, flown to [facility] Methotrexate 08/19/2013 pneumonitis Other Allergy (See Comments) Rash 012 Insecticides cause breathing problems Penicillins Hives 02/01/2001 Ranitidine Rash 07/14/2001 documented as of this encounter (statuses as of 06/15/2023) Medications Medication Sig Dispensed Refills Start Date End Date Status ONETOUCH ULTRASOFT LANCETS MISC Check BS twice daily. E 11.9 1 Box Dosing Unit 11 12/15/2016 Active Nystatin (NYSTOP) 993076 UNIT/GM powderIndications:C utaneous candidiasis APPLY TOPICALLY TO AFFECTED AREA 3 TIMES A DAY. SPRINKLE OVER AFFECTED AREA. 15 g 2 12/15/2016 Active Blood Glucose Monitoring Suppl ([employer] ULTRA SYSTEM) w/Device KIT Twice daily. Dx E 11.9 1 Kit 0 12/25/2017 Active Glucose Blood (Buzz[employer] Information Technology CompanyTOUCH ULTRA BLUE) STRPIndications:Typ e 2 diabetes mellitus with hemoglobin A1c goal of less than 7.0% ([facility]) Check BS twice daily E11.9 100 [...] at bedtime. 30 Tablet 0 10/01/2022 Active Clopidogrel Bisulfate 75 MG Oral Tablet (pLAVix) Take 1 Tablet by mouth in the morning. 100 Tablet 3 10/01/2022 Active Fluticasone Furoate-Vilanterol 200-25 MCG/ACT Inhalation [...] in 60 to 180 days Given at [facility] 1 Each 1 12/29/2022 Active Additional Information [...] the day 100 Tablet 3 06/15/2023 Active Pantoprazole Sodium 40 MG Oral Tablet Delayed Release (Protonix)Indicatio ns:Gastroesophageal reflux disease, unspecified whether esophagitis present 1 tablet by mouth daily 30 to 60 minutes before the first meal of the day 100 Tablet 3 10/01/2022 06/15/20 23 Discontinu ed(Refill) documented as of this encounter (statuses as of 06/15/2023) Active Problems Problem Noted Date Polyneuropathy associated with underlyin g disease 10/15/2022 Paroxysmal atrial fibrillation History of 2019 novel coronavirus diseas e (COVID-19) 09/18/2022 DNR (do not resuscitate) 09/17/2022 H/O Clostridium difficile infection 08/15 Primary open angle glaucoma (POAG) of froilan th eyes, mild stage 04/02/2022 History of [place] (myocardial infarction) Neutropenia 04/02/2022 Last Assessment & [...] Age-related osteoporosis without current pathological fracture 06/08/2020 half-way current use of therapeutic elysia g 03/06/2020 Chronic right-sided heart failure 2019 Major depressive disorder, recurrent epi sode, in partial remission 11/03/2019 Last Assessment & Plan: Managed well with Cymbalta 60 mg daily Gastroesophageal reflux disease without esophagitis 11/03/2019 Last Assessment & Plan: Managed with pantoprazole 40 mg daily Coronary artery disease invo lving [place] coronary artery of [place] heart without angina pectoris 11/03/2019 Last Assessment [...] ICD-10 update of inactive term LOC PRIM [id number] 04/12/2003 04/15/20 17 PURE HYPERCHOLESTEROLEM 12/27/2001 08/03/20 [...] COPD, moderate 12/05/2014 CAD (coronary artery disease), [place] coronary a rtery 02/24/2022 Overview: duplicate documented [...] encounter Miscellaneous Notes * Telephone Encounter - Thien Rust [facility] - 06/15/2023 9:23 AM EDT Signed Prescriptions: Disp Refills Pantoprazole Sodium 40 MG Oral Tablet Melania*100 Ta*3 Si tablet by mouth daily 30 to 60 minutes before the first meal of the day Authorizing Provider: ERNESTO HARPER Ordering User: THIEN RUST * Telephone Encounter - Unique Hood [facility] - 06/15/2023 9:20 AM EDT Script d/c in error with mail order conversion. Pt is out please send new rx Did you pend patient's preferred pharmacy and medication before forwarding?yes Pharmacy: [facility] Pending Prescriptions: Disp Refills Pantoprazole Sodium 40 MG Oral Tablet Del*100 Ta*3 Si tablet by mouth daily 30 to 60 minutes before the first meal of the day Last Visit: 05/27/2023 (in office), Visit date not found (telemedicine) Next Visit: 07/10/2023 If no future appointments scheduled, and last appointment is greater than a year ago, please schedule patient for a follow-up appointment Last date the medication was ordered: 10/01/2022 Is this request for a controlled substance?No Urine Drug Screen: Results for orders placed or performed in visit on 03/06/20 OPIOIDS/BENZO COMPLIANCE MONITORING W/INTERP Result Value COMPLIANCE INTERP (NOTE) URINE DRUG SCREEN RESULT Amphetamine NEGATIVE Benzodiazepines NEGATIVE Cannabinoids NEGATIVE Cocaine Metabolite NEGATIVE HYDROCODONE NEGATIVE METHADONE METABOLITE REFER TO CONFIRMATION RESULT (A) Morphine / Codeine NEGATIVE OXYCODONE NEGATIVE COMMENT THE ABOVE SCREENING RESULTS ARE PRESUMPTIVE AND CAN ONLY BE USED FOR MEDICAL PURPOSES. CONFIRMATORY TESTING IS AVAILABLE UPON REQUEST. Cutoff Concentration URINE VALID INTERP NORMAL CREATININE NELSON 257 Results for orders placed or performed during the hospital encounter of 07/24/18 TOX SCREEN, URINE, W/O CONFIRMATION Result Value Amphetamine NEGATIVE Barbiturates NEGATIVE Benzodiazepines POSITIVE (A) Cannabinoids NEGATIVE Cocaine Metabolite NEGATIVE Morphine / Codeine POSITIVE (A) METHADONE METABOLITE NEGATIVE OXYCODONE NEGATIVE NOTE: THE ABOVE SCREENING RESULTS ARE PRESUMPTIVE AND CAN ONLY BE USED FOR MEDICAL PURPOSES. CONFIRMATORY TESTING IS AVAILABLE UPON REQUEST. Cutoff Concentration *Note: Due to a large number of results and/or encounters for the requested time period, some results have not been displayed. A complete set of results can be found in Results Review. Patient Phone Numbers Labs: Lab Results Component [...] AM ALT 21 08/13/2020 02:10 PM HGBA1C 6.0 (H) 12/29/2022 11:36 AM HGBA1C 6.4 (H) 03/06/2020 01:30 PM documented in this encounter Plan of Treatment Upcoming Encounters Date Type Specialty Care Team Description 07/10/2023 Office Visit Family Medicine Ernesto Harper[address] [place] [address] 08/10/2023 Office Visit Rheumatology [facility] [place] [address] Health Maintenance Due Date Last Done Comments Alpha-1 Antitrypsin 1963 DTaP,Tdap,and Td Vaccines (2 - Td or Tdap) 10/02/2020 10/02/2010, 10/31/2004 COVID-19 Vaccine (6 - Moderna series) 05/21/2022 03/26/2022, 05/06/2021, 05/06/2021, Additional history exists *BISPHONATE OR OTHER ACCEPTABLE MEDICATION NEEDED FOR OSTEOPOROSIS (REFER TO SMARTSET #1146) 06/28/2022 CKD PHOS USE SMARTSET 64508 04/15/2023 080 10/2021, 03/12/2021, 07/19/2019, Additional history exists Influenza [...] Additional history exists CKD HGB USE SMARTSET 53126 05/27/202405/27, 05/27/2023, 10/15/2022, Additional history exists O2 ASSESSMENT COMPLETED IN PAST YEAR FOR COPD 06/03/2024 06/03/2023 DXA Scan 05/04/2025 05/04/2023, 03/14, 01/18/2013 Pneumococcal Vaccine: 65+ Years Completed 03/05/2017, 06/28/2015, 11/25/2011, Additional history exists Fecal Occult Blood Test Discontinued 09/23/19, 08/06/2018, 02/21/2004 VITAMIN D LEVEL ONCE IN A LIFETIME-USE SMARTSET# [id number] Completed 10/18/2020, 03/06/2020, 03/26/2018, Additional history exists [...] this encounter Medical Devices Implanted Type Area Ship Laborer Device Identifier Shelf Expiration Date Model / Serial / Lot Lens 19.5 Sn60wf - [id number] - [id number] Implanted:Qty: 1 on 11/21/2016 by Faraz Jeffers MD at OR [facility] Left: Eye RAMÓN : SURGICAL 05/14/2021 SN60WF.1 95 / [id number] 2 / Lens 19.5 Sn60wf - [id number] - [id number] Implanted:Qty: 1 on 04/22/2019 by Faraz Jeffers MD at OR [facility] Right: Eye RAMÓN : SURGICAL 07/14/2023 SN60WF.195 / [id number] / documented as of this encounter Visit Diagnoses Diagnosis Gastroesophageal reflux disease, unspecified whether esophagitis present documented in this encounter Advance Directives Latest [...] and were consensually agreed upon. Care Teams Rate And Cost Analyst Relationship Specialty Start Date End Date Ernesto Harper[address] [place] [address] PCP - General Internal Medicine 11/18/17 documented as of this encounter
--- OUTSIDE RECORDS SUMMARY | 2023-09-05 18:41 | External Medical Summary | Summary of Care ---
Author Name Unknown Organization [facility] Address [address] [facility] [place] [address] Phone [phone] Care Team Providers Care Cable Engineer Name Role Phone Leni Moyer DO Primary Care Provider [phone] Reason for Visit * Reason Onset Date Comments Follow Up 06/22/2023 Encounter Details Date Type Department Care Team Description 06/22/2023 Telephone Care Coordination [address] [place] [address] Angelia Da Silva, [facility] [address] [place] [address] Follow Up Allergies Active Allergy Reactions Severity Noted Date Comments Ciprofloxacin Bleeding High 05/27/2023 And rash Influenza Virus Vac Live Quad High 2020 2 years ago, flown to [facility] Methotrexate 08/19/2013 pneumonitis Other Allergy (See Comments) Rash 012 Insecticides cause breathing problems Penicillins Hives 02/01/2001 Ranitidine Rash 07/14/2001 documented as of this encounter (statuses as of 06/22/2023) Medications Medication Sig Dispensed Refills Start Date End Date Status RivalHealthTOUCH ULTRASOFT LANCETS MISC Check BS twice daily. E 11.9 1 Box Dosing Unit 11 12/15/2016 Active Nystatin (NYSTOP) 518496 UNIT/GM powderIndications:Cu taneous candidiasis APPLY TOPICALLY TO AFFECTED AREA 3 TIMES A DAY. SPRINKLE OVER AFFECTED AREA. 15 g 2 12/15/2016 Active Blood Glucose Monitoring Suppl ([employer] ULTRA SYSTEM) w/Device KIT Twice daily. Dx E 11.9 1 Kit 0 12/25/2017 Active Glucose Blood ([employer] ULTRA BLUE) STRPIndications:Type 2 diabetes mellitus with hemoglobin A1c goal of less than 7.0% ([facility]) Check BS twice daily E11.9 [...] in 60 to 180 days Given at [facility] 1 Each 1 12/29/2022 Active Additional [...] the morning. 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 03/06/2020 Chronic right-sided heart failure 2019 Major depressive disorder, recurrent epi sode, in partial remission 11/03/2019 Last Assessment & Plan: Managed well with Cymbalta 60 mg daily Gastroesophageal reflux disease without esophagitis 11/03/2019 Last Assessment & Plan: Managed with pantoprazole 40 mg daily Coronary artery disease invo lving [place] coronary artery of [place] heart without angina pectoris 11/03/2019 Last Assessment [...] as of this encounter (statuses as of 06/22/2023) Resolved Problems Problem Noted Date Resolved Date [...] ICD-10 update of inactive term LOC PRIM [id number] 04/12/2003 04/15/20 17 PURE HYPERCHOLESTEROLEM 12/27/2001 08/03/20 [...] COPD, moderate 12/05/2014 CAD (coronary artery disease), [place] coronary a rtery 02/24/2022 Overview: duplicate documented as of this encounter (statuses as of 06/22/2023) Immunizations Name Administration Dates Next Due COVID-19 [...] encounter Miscellaneous Notes * Telephone Encounter - Angelia Da [facility] - 06/22/2023 4:07 PM EDT ROLANDO #4 Patient complains of itching to both arms. Applying cream. Some scabbed areas. Feels it is not getting better. Unsure of recent blood sugar readings. C/o memory problems "I forget names and places, forget where I put things". No pain. Recent fall "got my feet hooked on my pants and I fell". Reportsher pants were too long. Note, patient is very petite. States she has no issues with getting clothes. Will try to hem her pants. Re: ambulation "I'm a little on the slow side, but I get around". Feels her strength is improving. Continues using son's truck. Has a stool to step on and reach grab bar in the truck and " my gives me a boost". Reminded patient of appt on 07/[address] Moyer. Arrival time of 2:55pm. Patient states she has lab work needing completed, and will get it drawn thatday. Patient feels asthma symptoms have worsened in recent weeks. Note: CAT = 31. Confirmed that patient has CM phone number to call with any questions or concerns. YOHAN Survey 2 In the last month have you had increased or new trouble breathing, or has wheezing gotten worse? - breathing as per baseline In the last month have you had a NEW or worsening cough with mucous? - ongoing productive cough of white mucous In the last month have you had any symptoms of cold or had a fever? - no In the last month have you been using your inhalers more than usual? - has been taking albuterol more than usual. Using 2-3 times per day. In the last month have you had to start sleeping sitting up in a chair? - no. In the last month have you had new or increased difficulty in breathing with normal activities suchas bathing or dressing? - more SOB than baseline. assists with self care. Do you use oxygen? No- move on to next question Yes- are you wearing as ordered or have you increased use? - no In the last month have you been eating less then you normally do? - appetite is good. Notes that it's better than it has been CAT Assessment completed in [facility]? CAT Score: 31 documented in this encounter Plan of Treatment Upcoming Encounters Date Type Specialty Care Team Description 07/10/2023 Office Visit Family Medicine Leni Moyer, [address] [place], [place] [address] 08/10/2023 Office Visit Rheumatology Brandon Lewis MD [address] [facility] [place] [address] Health Maintenance Due Date Last Done Comments Alpha-1 Antitrypsin 1963 DTaP,Tdap,and Td Vaccines (2 - Td or Tdap) 10/02/2020 10/02/2010, 10/31/2004 *BISPHONATE OR OTHER ACCEPTABLE MEDICATION NEEDED FOR OSTEOPOROSIS (REFER TO SMARTSET #1146) 06/28/2022 CKD PHOS USE SMARTSET 59900 04/15/2023 08/0 10/2021, 03/12/2021, 07/19/2019, Additional history [...] Additional history exists CKD HGB USE SMARTSET 35893 05/27/202405/27, 05/27/2023, 10/15/2022, Additional history exists O2 ASSESSMENT COMPLETED IN PAST YEAR FOR COPD 06/03/2024 06/03/2023 DXA Scan 05/04/2025 05/04/2023, 03/14, 01/18/2013 Pneumococcal Vaccine: 65+ Years Completed 03/05/2017, 06/28/2015, 11/25/2011, Additional history exists Fecal Occult Blood Test Discontinued 09/23/19, 08/06/2018, 02/21/2004 VITAMIN D LEVEL ONCE IN A LIFETIME-USE SMARTSET# [id number] Completed 10/18/2020, 03/06/2020, 03/26/2018, Additional history exists [...] this encounter Medical Devices Implanted Type Area Account Manager Device Identifier Shelf Expiration Date Model / Serial / Lot Lens 19.5 Sn60wf - [id number] - [id number] Implanted:Qty: 1 on 11/21/2016 by Faraz Jeffers MD at OR [facility] Left: Eye RAMÓN : SURGICAL 05/14/2021 SN60WF.1 95 / [id number] / Lens 19.5 Sn60wf - [id number] - [id number] Implanted:Qty: 1 on 04/22/2019 by Faraz Jeffers MD at OR [facility] Right: Eye RAMÓN : SURGICAL 07/14/2023 SN60WF.195 / [id number] / documented as of this encounter [...] and were consensually agreed upon. Care Teams Cable Engineer Relationship Specialty Start Date End Date Moyer, Leni [place] [place] [address] PCP - General Internal Medicine 11/18/17 documented as of this encounter
--- OUTSIDE RECORDS SUMMARY | 2023-09-05 18:41 | External Medical Summary | Summary of Care ---
Author Name Unknown Organization [facility] Address [address] [facility] [address] Phone [phone] Care Team Providers Care Guard Supervisor Name Role Phone Leni Moyer DO Primary Care Provider Reason for Visit * Reason Onset Date Comments Medication Refill 06/15/2023 Encounter Details Date Type Department Care Team Description 06/15/2023 Telephone Family Medicine [address] [place] [address] Leni Moyer DO [address] [place] [address] [place] [address] Medication Refill Allergies Active Allergy Reactions Severity Noted Date Comments Ciprofloxacin Bleeding High 05/27/2023 And rash Influenza Virus Vac Live Quad High 2020 2 years ago, flown to [facility] Methotrexate 08/19/2013 pneumonitis Other Allergy (See Comments) Rash 012 Insecticides cause breathing problems Penicillins Hives 02/01/2001 Ranitidine Rash 07/14/2001 documented as of this encounter (statuses as of 06/15/2023) Medications Medication Sig Dispensed Refills Start Date End Date Status ONETOUCH ULTRASOFT LANCETS MISC Check BS twice daily. E 11.9 1 Box Dosing Unit 11 12/15/2016 Active Nystatin (NYSTOP) 019626 UNIT/GM powderIndications:C utaneous candidiasis APPLY TOPICALLY TO AFFECTED AREA 3 TIMES A DAY. SPRINKLE OVER AFFECTED AREA. 15 g 2 12/15/2016 Active Blood Glucose Monitoring Suppl (Com[employer] SYSTEM) w/Device KIT Twice daily. Dx E 11.9 1 Kit 0 12/25/2017 Active Glucose Blood (FlexScoreTOUCH ULTRA BLUE) STRPIndications:Typ e 2 diabetes mellitus [...] in 60 to 180 days Given at [facility] 1 Each 1 12/29/2022 Active [...] the morning. 100 Tablet 3 06/15/2023 Active Clopidogrel Bisulfate 75 MG Oral Tablet (pLAVix) Take 1 Tablet by mouth in the morning. 100 Tablet 3 10/01/2022 06/15/20 23 Discontinu [...] th eyes, mild stage 04/02/2022 History of [place] (myocardial infarction) Neutropenia 04/02/2022 Last Assessment & [...] Age-related osteoporosis without current pathological fracture 06/08/2020 terminal carman current use of therapeutic elysia g 03/06/2020 Chronic right-sided heart failure 2019 Major depressive disorder, recurrent epi sode, in partial remission 11/03/2019 Last Assessment & Plan: Managed well with Cymbalta 60 mg daily Gastroesophageal reflux disease without esophagitis 11/03/2019 Last Assessment & Plan: Managed with pantoprazole 40 mg daily Coronary artery disease invo lving [place] coronary artery of [place] heart without angina pectoris 11/03/2019 Last Assessment [...] ICD-10 update of inactive term LOC PRIM [id number] 04/12/2003 04/15/20 17 PURE HYPERCHOLESTEROLEM 12/27/2001 08/03/20 [...] COPD, moderate 12/05/2014 CAD (coronary artery disease), [place] coronary a rtery 02/24/2022 Overview: duplicate documented [...] encounter Miscellaneous Notes * Telephone Encounter - Lesley Carlin CPhT - 06/15/2023 9:05 AM EDT Patient requesting refills for Clopidogrel 75mg. Upon chart review, medication is listed as expiredas of 05/20/2023 . Please advise if you wish to continue this therapy for the patient. Please send 90d/s to [facility]. Thank you, Lesley Carlin Thaw Shed Heater Tender I [facility]) 06/15/2023, 9:06 AM documented in this encounter Plan of Treatment Upcoming Encounters Date Type Specialty Care Team Description 07/10/2023 Office Visit Family Medicine Leni Moyer[address] [place] [address] 08/10/2023 Office Visit Rheumatology Brandon Lewis MD [address] [place] [address] Health Maintenance Due Date Last Done Comments Alpha-1 Antitrypsin 1963 DTaP,Tdap,and Td Vaccines (2 - Td or Tdap) 10/02/2020 10/02/2010, 10/31/2004 COVID-19 Vaccine (6 - Moderna series) 05/21/2022 03/26/2022, 05/06/2021, 05/06/2021, Additional history exists *BISPHONATE OR OTHER ACCEPTABLE MEDICATION NEEDED FOR OSTEOPOROSIS (REFER TO SMARTSET #1146) 06/28/2022 CKD PHOS USE SMARTSET 31486 04/15/2023 08/0 10/2021, 03/12/2021, 07/19/2019, Additional history [...] Additional history exists CKD HGB USE SMARTSET 76278 05/27/202405/27, 05/27/2023, 10/15/2022, Additional history exists O2 ASSESSMENT COMPLETED IN PAST YEAR FOR COPD 06/03/2024 06/03/2023 DXA Scan 05/04/2025 05/04/2023, 03/14, 01/18/2013 Pneumococcal Vaccine: 65+ Years Completed 03/05/2017, 06/28/2015, 11/25/2011, Additional history exists Fecal Occult Blood Test Discontinued 09/23/19, 08/06/2018, 02/21/2004 VITAMIN D LEVEL ONCE IN A LIFETIME-USE SMARTSET# 67529 Completed 10/18/2020, 03/06/2020, 03/26/2018, Additional history exists [...] this encounter Medical Devices Implanted Type Area Racking Technician Device Identifier Shelf Expiration Date Model / Serial / Lot Lens 19.5 Sn60wf - [id number] - [id number] Implanted:Qty: 1 on 11/21/2016 by Faraz Jeffers MD at [facility] Left: Eye RAMÓN : SURGICAL 05/14/2021 SN60WF.1 95 / [id number] 2 / Lens 19.5 Sn60w - [id number] - [id number] Implanted:Qty: 1 on 04/22/2019 by Faraz Jeffers MD at OR [facility] Right: Eye RAMÓN : SURGICAL 07/14/2023 SN60WF.195 / [id number] / documented as of this encounter [...] and were consensually agreed upon. Care Teams Guard Supervisor Relationship Specialty Start Date End Date Leni Moyer, [address] [place] [address] PCP - General Internal Medicine 11/18/17 documented as of this encounter
--- OUTSIDE RECORDS SUMMARY | 2023-09-05 18:41 | External Medical Summary | Summary of Care ---
Author Name Unknown Organization [facility] Address [address] [place] [address] Phone [phone] Care Team Providers Care Contract Analyst Name Role Phone Leni Moyer DO Primary Care Provider Reason for Visit * Reason Onset Date Comments case management 07/03/2023 Encounter Details Date Type Department Care Team Description 07/03/2023 Telephone Care Coordination [address], [place] [id number] Liv Stein, A[place]USTINE [address] [place] [address] case management Allergies Active Allergy Reactions Severity Noted Date Comments Ciprofloxacin Bleeding High 05/27/2023 And rash Influenza Virus Vac Live Quad High 2020 2 years ago, flown to [facility] Methotrexate 08/19/2013 pneumonitis Other Allergy (See Comments) Rash 012 Insecticides cause breathing problems Penicillins Hives 02/01/2001 Ranitidine Rash 07/14/2001 documented as of this encounter (statuses as of 07/03/2023) Medications Medication Sig Dispensed Refills Start Date End Date Status CoachBaseTOUCH ULTRASOFT LANCETS MISC Check BS twice daily. E 11.9 1 Box Dosing Unit 11 12/15/2016 Active Nystatin (NYSTOP) 525636 UNIT/GM powderIndications:Cu taneous candidiasis APPLY TOPICALLY TO AFFECTED AREA 3 TIMES A DAY. SPRINKLE OVER AFFECTED AREA. 15 g 2 12/15/2016 Active Blood Glucose Monitoring Suppl (ONETOGlide ULTRA SYSTEM) w/Device KIT Twice daily. Dx E 11.9 1 Kit 0 12/25/2017 Active Glucose Blood (CoachBaseTOUCH ULTRA BLUE) STRPIndications:Type 2 diabetes mellitus with hemoglobin A1c goal of less than 7.0% ([facility]) Check BS twice daily E11.9 [...] in 60 to 180 days Given at [facility] 1 Each 1 12/29/2022 Active Additional [...] as of this encounter (statuses as of 07/03/2023) Active Problems Problem Noted Date Polyneuropathy associated with underlyin g disease 10/15/2022 Paroxysmal atrial fibrillation 3 History of 2019 novel coronavirus diseas e (COVID-19) 09/18/2022 DNR (do not resuscitate) 09/17/2022 H/O Clostridium difficile infection 08/15 Primary open angle glaucoma (POAG) of froilan th eyes, mild stage 04/02/2022 History of [place] (myocardial infarction) Neutropenia 04/02/2022 Last Assessment & [...] Age-related osteoporosis without current pathological fracture 06/08/2020 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 elysia g 03/06/2020 Chronic right-sided heart failure 2019 Major depressive disorder, recurrent epi sode, in partial remission 11/03/2019 Last Assessment & Plan: Managed well with Cymbalta 60 mg daily Gastroesophageal reflux disease without esophagitis 11/03/2019 Last Assessment & Plan: Managed with pantoprazole 40 mg daily Coronary artery disease invo lving [place] coronary artery of [place] heart without angina pectoris 11/03/2019 Last Assessment [...] as of this encounter (statuses as of 07/03/2023) Resolved Problems Problem Noted Date Resolved Date [...] OSTEOARTHROSIS 08/05/2006 7 INTRINSIC ASTHMA UNSPEC 05/06/2006 06/24/20 10 ADVANCE DIRECTIVE INFORMATION 11/19/2005 Overview: No, Advance Directive brochure offered , patient declined. No, Advance Directive brochure given to patient at prior appointment. GENERAL OSTEOARTHROSIS 07/16/2005 8 OPEN WOUND ARM MULT-NOS 11/05/2004 12/06/19 08 Gouty arthropathy 02/27/2004 06/28/2009 Overview: ICD-9 Code Update ICD-10 update of inactive term LOC PRIM [id number] 04/12/2003 04/15/20 17 PURE HYPERCHOLESTEROLEM 12/27/2001 08/03/20 [...] COPD, moderate 12/05/2014 CAD (coronary artery disease), [place] coronary a rtery 02/24/2022 Overview: duplicate documented as of this encounter (statuses as of 07/03/2023) Immunizations Name Administration Dates Next Due COVID-19 [...] 07/10/2023 Office Visit Family Medicine Leni Moyer, [address] [place] [address] 08/10/2023 Office Visit Rheumatology Brandon Lewis MD [address] [place] [address] [place], [place] [address] Health Maintenance Due Date Last Done Comments Alpha-1 Antitrypsin 1963 DTaP,Tdap,and Td Vaccines (2 - Td or Tdap) 10/02/2020 10/02/2010, 10/31/2004 *BISPHONATE OR OTHER ACCEPTABLE MEDICATION NEEDED FOR OSTEOPOROSIS (REFER TO SMARTSET #1146) 06/28/2022 CKD PHOS USE SMARTSET 43705 04/15/2023 08/0 10/2021, 03/12/2021, 07/19/2019, Additional history [...] Additional history exists CKD HGB USE SMARTSET 65362 05/27/202405/27, 05/27/2023, 10/15/2022, Additional history exists O2 ASSESSMENT COMPLETED IN PAST YEAR FOR COPD 06/03/2024 06/03/2023 DXA Scan 05/04/2025 05/04/2023, 03/14, 01/18/2013 Pneumococcal Vaccine: 65+ Years Completed 03/05/2017, 06/28/2015, 11/25/2011, Additional history exists Fecal Occult Blood Test Discontinued 09/23/19, 08/06/2018, 02/21/2004 VITAMIN D LEVEL ONCE IN A LIFETIME-USE SMARTSET# [id number] Completed 10/18/2020, 03/06/2020, 03/26/2018, Additional history exists [...] this encounter Medical Devices Implanted Type Area Rig Site Engineer Device Identifier Shelf Expiration Date Model / Serial / Lot Lens 19.5 Sn60wf - [id number] - [id number] Implanted:Qty: 1 on 11/21/2016 by Faraz Jeffers MD at OR [facility] Left: Eye RAMÓN : SURGICAL 05/14/2021 SN60WF.1 95 / [id number] 2 / Lens 19.5 Sn60wf - [id number] - [id number] Implanted:Qty: 1 on 04/22/2019 by Faraz Jeffers MD at OR [facility] Right: Eye RAMÓN : SURGICAL 07/14/2023 SN60WF.195 / [id number] / documented as of this encounter [...] and were consensually agreed upon. Care Teams Contract Analyst Relationship Specialty Start Date End Date Leni Moyer[address] [place] [address] PCP - General Internal Medicine 11/18/17 documented as of this encounter
--- OUTSIDE RECORDS SUMMARY | 2023-09-05 18:41 | External Medical Summary | Summary of Care ---
Author Name Unknown Organization [facility] Address [address] [facility] [place] [address] Phone [phone] Care Team Providers Care Thermoplastic Technician Name Role Phone Leni Moyer DO Primary Care Provider Reason for Visit * Reason Comments Medication Refill Encounter Details Date Type Department Care Team Description 06/01/2023 Refill Family Medicine [address] [phone] Leni Moyer DO [address] [place] [address] [place] [id number] Allergies Active Allergy Reactions Severity Noted Date Comments Ciprofloxacin Bleeding High 05/27/2023 And rash Influenza Virus Vac Live Quad High 2020 2 years ago, flown to [facility] Methotrexate 08/19/2013 pneumonitis Other Allergy (See Comments) Rash 012 Insecticides cause breathing problems Penicillins Hives 02/01/2001 Ranitidine Rash 07/14/2001 documented as of this encounter (statuses as of 06/10/2023) Medications Medication Sig Dispensed Refills Start Date End Date Status CompleteCar.comTOUCH ULTRASOFT LANCETS MISC Check BS twice daily. E 11.9 1 Box Dosing Unit 11 12/15/2016 Active Nystatin (NYSTOP) 542717 UNIT/GM powderIndications:Cu taneous candidiasis APPLY TOPICALLY TO AFFECTED AREA 3 TIMES A DAY. SPRINKLE OVER AFFECTED AREA. 15 g 2 12/15/2016 Active Blood Glucose Monitoring Suppl (ONETOUCH ULTRA SYSTEM) w/Device KIT Twice daily. Dx E 11.9 1 Kit 0 12/25/2017 Active Glucose Blood (DemoHireUCH ULTRA BLUE) STRPIndications:Type 2 diabetes mellitus with hemoglobin A1c goal of less than 7.0% ([facility]) Check BS twice daily E11.9 [...] at bedtime. 30 Tablet 0 10/01/2022 Active Pantoprazole Sodium 40 MG Oral Tablet Delayed Release (Protonix)Indication s:Gastroesophageal reflux disease, unspecified whether esophagitis present 1 tablet by mouth daily 30 to 60 minutes before the first meal of the day 100 Tablet 3 10/01/2022 Active Clopidogrel Bisulfate 75 MG Oral [...] in 60 to 180 days Given at [facility] 1 Each 1 12/29/2022 Active [...] affected area. 80 g 1 05/27/2023 Active documented as of this encounter (statuses as of 06/10/2023) Active Problems Problem Noted Date Polyneuropathy associated with underlyin g disease 10/15/2022 Paroxysmal atrial fibrillation 3 History of 2019 novel coronavirus diseas e (COVID-19) 09/18/2022 DNR (do not resuscitate) 09/17/2022 H/O Clostridium difficile infection 08/15 Primary open angle glaucoma (POAG) of froilan th eyes, mild stage 04/02/2022 History of [place] (myocardial infarction) Neutropenia 04/02/2022 Last Assessment & [...] Age-related osteoporosis without current pathological fracture 06/08/2020 snf current use of therapeutic elysia g 03/06/2020 Chronic right-sided heart failure 2019 Major depressive disorder, recurrent epi sode, in partial remission 11/03/2019 Last Assessment & Plan: Managed well with Cymbalta 60 mg daily Gastroesophageal reflux disease without esophagitis 11/03/2019 Last Assessment & Plan: Managed with pantoprazole 40 mg daily Coronary artery disease invo lving [place] coronary artery of [place] heart without angina pectoris 11/03/2019 Last Assessment [...] as of this encounter (statuses as of 06/10/2023) Resolved Problems Problem Noted Date Resolved Date [...] ICD-10 update of inactive term LOC PRIM [id number] 04/12/2003 04/15/20 17 PURE HYPERCHOLESTEROLEM 12/27/2001 08/03/20 [...] COPD, moderate 12/05/2014 CAD (coronary artery disease), [place] coronary a rtery 02/24/2022 Overview: duplicate documented as of this encounter (statuses as of 06/10/2023) Immunizations Name Administration Dates Next Due COVID-19 mRNA, LNP-s, No Pre serve, 2-Dose Series (Moderna) 05/06/2021,01/31/2021,01/02/2021 COVID-19, LNP-s, No Preserve , Pete-sucrose, Ages 12+ (Pfizer) 03/26/2022 COVID-19, mRNA, LNP-s, PF, B ooster, 100mcg/0.5mg (Moderna) 05/06/2021 PPD 11/25/2011 Pneumococcal Conjugate Vacc, 13 Valent (Prevnar) 06/28/2015 Pneumococcal Polysaccharide PPV23 (Pneumovax) 03/05/2017,11/25/2011,08/05/2006 Seasonal Influenza, PF, 6 mo ns & Above, IM , (Flulaval) 06/14/2018,06/22/2017 Seasonal Influenza, Quadriva lent, No Preserve, [...] encounter Miscellaneous Notes * Telephone Encounter - Mala Haines CPhT - 06/10/2023 7:26 AM EDTNo prescriptions requested or ordered in this encounter * Telephone Encounter - Mala Haines CPhT - 06/10/2023 7:26 AM EDTNo prescriptions requested or ordered in this encounter * Telephone Encounter - Ansley JordanNora - 06/10/2023 7:18 AM EDT (Listed as discontinued for medication clean up) Did you pend patient's preferred pharmacy and medication before forwarding?yes Pharmacy: [facility] Pending Prescriptions: Disp Refills Mirtazapine 15 MG Oral Tablet (Remeron) 100 Ta*3 Sig: TAKE ONE TABLET BY MOUTH AT BEDTIME Last Visit: 05/27/2023 (in office), Visit date not found (telemedicine) Next Visit: 06/04/2023 If no future appointments scheduled, and last appointment is greater than a year ago, please schedule patient for a follow-up appointment Last date the medication was ordered: 11/04/22 Is this request for a controlled substance?No [...] Description 07/10/2023 Office Visit Family Medicine Leni Moyer[address] [place] [address] 08/10/2023 Office Visit Rheumatology Brandon Lewis MD [facility] [place] [address] Health Maintenance Due Date Last Done Comments Alpha-1 Antitrypsin 1963 DTaP,Tdap,and Td Vaccines (2 - Td or Tdap) 10/02/2020 10/02/2010, 10/31/2004 COVID-19 Vaccine (6 - Moderna series) 05/21/2022 03/26/2022, 05/06/2021, 05/06/2021, Additional history exists *BISPHONATE OR OTHER ACCEPTABLE MEDICATION NEEDED FOR OSTEOPOROSIS (REFER TO SMARTSET #1146) 06/28/2022 CKD PHOS USE SMARTSET 37252 04/15/2023 08/0 10/2021, 03/12/2021, 07/19/2019, Additional history [...] Additional history exists CKD HGB USE SMARTSET 94105 05/27/202405/27, 05/27/2023, 10/15/2022, Additional history exists O2 ASSESSMENT COMPLETED IN PAST YEAR FOR COPD 06/03/2024 06/03/2023 DXA Scan 05/04/2025 05/04/2023, 03/14, 01/18/2013 Pneumococcal Vaccine: 65+ Years Completed 03/05/2017, 06/28/2015, 11/25/2011, Additional history exists Fecal Occult Blood Test Discontinued 09/23/19, 08/06/2018, 02/21/2004 VITAMIN D LEVEL ONCE IN A LIFETIME-USE SMARTSET# 10088 Completed 10/18/2020, 03/06/2020, 03/26/2018, Additional history exists [...] this encounter Medical Devices Implanted Type Area Recreation Therapy Aides Teacher Device Identifier Shelf Expiration Date Model / Serial / Lot Lens 19.5 Sn60wf - [id number] - [id number] Implanted:Qty: 1 on 11/21/2016 by Faraz Jeffers MD at OR [facility] Left: Eye RAMÓN : SURGICAL 05/14/2021 SN60WF.1 95 / [id number] 2 / Lens 19.5 Sn60wf - [id number] - [id number] Implanted:Qty: 1 on 04/22/2019 by Faraz Jeffers MD at OR [facility] Right: Eye RAMÓN : SURGICAL 07/14/2023 SN60WF.195 / [id number] / documented as of this encounter [...] and were consensually agreed upon. Care Teams Thermoplastic Technician Relationship Specialty Start Date End Date Leni Moyer, [address] [place] [address] PCP - General Internal Medicine 11/18/17 documented as of this encounter
--- OUTSIDE RECORDS SUMMARY | 2023-09-05 18:41 | External Medical Summary | Summary of Care ---
Author Name Unknown Organization [facility] [address] [facility] [address] Phone [phone] Care Team Providers Care Solutions Engineer Name Role Phone Leni Moyer DO Primary Care Provider Reason for Visit * Reason Comments Medication Refill Encounter Details Date Type Department Care Team Description 06/22/[address] [place] [address] Leni Moyer DO [address] [place] [address] [place] [address] Allergies Active Allergy Reactions Severity Noted Date Comments Ciprofloxacin Bleeding High 05/27/2023 And rash Influenza Virus Vac Live Quad High 2020 2 years ago, flown to [facility] Methotrexate 08/19/2013 pneumonitis Other Allergy (See Comments) Rash 012 Insecticides cause breathing problems Penicillins Hives 02/01/2001 Ranitidine Rash 07/14/2001 documented as of this encounter (statuses as of 06/23/2023) Medications Medication Sig Dispensed Refills Start Date End Date Status HumanCentric PerformanceTOUCH ULTRASOFT LANCETS MISC Check BS twice daily. E 11.9 1 Box Dosing Unit 11 12/15/2016 Active Nystatin (NYSTOP) 037613 UNIT/GM powderIndications:C utaneous candidiasis APPLY TOPICALLY TO AFFECTED AREA 3 TIMES A DAY. SPRINKLE OVER AFFECTED AREA. 15 g 2 12/15/2016 Active Blood Glucose Monitoring Suppl (ONETOmeXBT / [employer] ULTRA SYSTEM) w/Device KIT Twice daily. Dx E 11.9 1 Kit 0 12/25/2017 Active Glucose Blood (HumanCentric PerformanceTOUCH ULTRA BLUE) STRPIndications:Typ e 2 diabetes mellitus [...] in 60 to 180 days Given at [facility] 1 Each 1 12/29/2022 Active Additional [...] at bedtime. 30 Tablet 0 06/23/2023 Active Hydroxychloroquine Sulfate 200 MG Oral Tablet (Plaquenil) Take 1 Tablet by mouth at bedtime. 30 Tablet 0 10/01/2022 06/22/20 23 Discontinu ed(Refill) documented as of this encounter (statuses as of 06/23/2023) Active Problems Problem Noted Date Polyneuropathy associated with underlyin g disease 10/15/2022 Paroxysmal atrial fibrillation 3 History of 2019 novel coronavirus diseas e (COVID-19) 09/18/2022 DNR (do not resuscitate) 09/17/2022 H/O Clostridium difficile infection 08/15 Primary open angle glaucoma (POAG) of froilan th eyes, mild stage 04/02/2022 History of [place] (myocardial infarction) Neutropenia 04/02/2022 Last Assessment & [...] Age-related osteoporosis without current pathological fracture 06/08/2020 senior care current use of therapeutic elysia g 03/06/2020 Chronic right-sided heart failure 2019 Major depressive disorder, recurrent epi sode, in partial remission 11/03/2019 Last Assessment & Plan: Managed well with Cymbalta 60 mg daily Gastroesophageal reflux disease without esophagitis 11/03/2019 Last Assessment & Plan: Managed with pantoprazole 40 mg daily Coronary artery disease invo lving [place] coronary artery of [place] heart without angina pectoris 11/03/2019 Last Assessment [...] ICD-10 update of inactive term LOC PRIM [id number] 04/12/2003 04/15/20 17 PURE HYPERCHOLESTEROLEM 12/27/2001 08/03/20 [...] COPD, moderate 12/05/2014 CAD (coronary artery disease), [place] coronary a rtery 02/24/2022 Overview: duplicate documented [...] Telephone Encounter - Fernandez Singh MD - 06/23/2023 8:47 AM EDTSigned Prescriptions: Disp Refills Hydroxychloroquine Sulfate 200 MG Oral Tab*30 Tab*0 Sig: Take 1Tablet by mouth at bedtime.Authorizing Provider: FERNANDEZ SINGH documented in this encounter Plan of Treatment Upcoming Encounters Date Type Specialty Care Team Description 07/10/2023 Office Visit Family Medicine Leni Moyer, [address] [place] [address] 08/10/2023 Office Visit Rheumatology Brandon Lewis MD [address] [place] [address] Health Maintenance Due Date Last Done Comments Alpha-1 Antitrypsin 1963 DTaP,Tdap,and Td Vaccines (2 - Td or Tdap) 10/02/2020 10/02/2010, 10/31/2004 *BISPHONATE OR OTHER ACCEPTABLE MEDICATION NEEDED FOR OSTEOPOROSIS (REFER TO SMARTSET #1146) 06/28/2022 CKD PHOS USE SMARTSET 36799 04/15/2023 080 10/2021, 03/12/2021, 07/19/2019, Additional history [...] Additional history exists CKD HGB USE SMARTSET 79223 05/27/202405/27, 05/27/2023, 10/15/2022, Additional history exists O2 ASSESSMENT COMPLETED IN PAST YEAR FOR COPD 06/03/2024 06/03/2023 DXA Scan 05/04/2025 05/04/2023, 03/14, 01/18/2013 Pneumococcal Vaccine: 65+ Years Completed 03/05/2017, 06/28/2015, 11/25/2011, Additional history exists Fecal Occult Blood Test Discontinued 09/23/19, 08/06/2018, 02/21/2004 VITAMIN D LEVEL ONCE IN A LIFETIME-USE SMARTSET# 50529 Completed 10/18/2020, 03/06/2020, 03/26/2018, Additional history exists [...] this encounter Medical Devices Implanted Type Area Heat Treat Technician Device Identifier Shelf Expiration Date Model / Serial / Lot Lens 19.5 Sn60wf - [id number] - [id number] Implanted:Qty: 1 on 11/21/2016 by Faraz Jeffers MD at [facility] Left: Eye RAMÓN : SURGICAL 05/14/2021 SN60WF.1 95 / [id number] 2 / Lens 19.5 Sn60wf - [id number] - [id number] Implanted:Qty: 1 on 04/22/2019 by Faraz Jeffers MD at OR [facility] Right: Eye RAMÓN : SURGICAL 07/14/2023 SN60WF.195 / [id number] / documented as of this encounter [...] and were consensually agreed upon. Care Teams Solutions Engineer Relationship Specialty Start Date End Date Leni Moyer[address] [place] [address] PCP - General Internal Medicine 11/18/17 documented as of this encounter
--- OUTSIDE RECORDS SUMMARY | 2023-09-05 18:41 | External Medical Summary | Summary of Care ---
Author Name Unknown Organization [facility] Address [address] [facility] [address] Phone [phone] Care Team Providers Care Yoga Coordinator Name Role Phone Ernesto Harper DO Primary Care Provider [phone] Reason for Visit * Reason Onset Date Comments Medication Refill 07/01/2023 Encounter Details Date Type Department Care Team Description 07/01/2023 Refill Family Medicine [address] [place] [id number] Ernesto Harper DO [address] [place] [address] [place] [address] Allergies Active Allergy Reactions Severity Noted Date Comments Ciprofloxacin Bleeding High 05/27/2023 And rash Influenza Virus Vac Live Quad High 2020 2 years ago, flown to [facility] Methotrexate 08/19/2013 pneumonitis Other Allergy (See Comments) Rash 012 Insecticides cause breathing problems Penicillins Hives 02/01/2001 Ranitidine Rash 07/14/2001 documented as of this encounter (statuses as of 07/01/2023) Medications Medication Sig Dispensed Refills Start Date End Date Status ONETOUCH ULTRASOFT LANCETS MISC Check BS twice daily. E 11.9 1 Box Dosing Unit 11 12/15/2016 Active Nystatin (NYSTOP) 993497 UNIT/GM powderIndications:C utaneous candidiasis APPLY TOPICALLY TO AFFECTED AREA 3 TIMES A DAY. SPRINKLE OVER AFFECTED AREA. 15 g 2 12/15/2016 Active Blood Glucose Monitoring Suppl (Quipper ULTRA SYSTEM) w/Device KIT Twice daily. Dx E 11.9 1 Kit 0 12/25/2017 Active Glucose Blood (Digital Music IndiaTOUCH ULTRA BLUE) STRPIndications:Typ e 2 diabetes mellitus with hemoglobin A1c goal of less than 7.0% ([facility]) Check BS twice daily E11.9 100 Strip [...] B-12 1000 MCG Oral CapsuleIndications: B12 deficiency 1999mcthursday, Thursday, and Thursday 30 Capsule 0 10/01/2022 [...] in 60 to 180 days Given at [facility] 1 Each 1 12/29/2022 Active Additional [...] 6 hours. 360 Capsule 0 07/01/2023 Active Vancomycin HCl 125 MG Oral Capsule (Vancocin) Take 1 Capsule by mouth every 6 hours. 360 Capsule 0 03/18/2023 07/01/20 23 Discontinu ed(Refill) documented as of this encounter (statuses as of 07/01/2023) Active Problems Problem Noted Date Polyneuropathy associated with underlyin g disease 10/15/2022 Paroxysmal atrial fibrillation 3 History of 2019 novel coronavirus diseas e (COVID-19) 09/18/2022 DNR (do not resuscitate) 09/17/2022 H/O Clostridium difficile infection 08/15 Primary open angle glaucoma (POAG) of froilan th eyes, mild stage 04/02/2022 History of NV (myocardial infarction) Neutropenia 04/02/2022 Last Assessment & [...] Age-related osteoporosis without current pathological fracture 06/08/2020 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 03/06/2020 Chronic right-sided heart failure 2019 Major depressive disorder, recurrent epi sode, in partial remission 11/03/2019 Last Assessment & Plan: Managed well with Cymbalta 60 mg daily Gastroesophageal reflux disease without esophagitis 11/03/2019 Last Assessment & Plan: Managed with pantoprazole 40 mg daily Coronary artery disease invo lving [place] coronary artery of [place] heart without angina pectoris 11/03/2019 Last Assessment [...] as of this encounter (statuses as of 07/01/2023) Resolved Problems Problem Noted Date Resolved Date [...] ICD-10 update of inactive term LOC PRIM [id number] 04/12/2003 04/15/20 17 PURE HYPERCHOLESTEROLEM 12/27/2001 08/03/20 [...] COPD, moderate 12/05/2014 CAD (coronary artery disease), [place] coronary a rtery 02/24/2022 Overview: duplicate documented as of this encounter (statuses as of 07/01/2023) Immunizations Name Administration Dates Next Due COVID-19 [...] encounter Miscellaneous Notes * Telephone Encounter - Ernesto Harper DO - 07/01/2023 1:06 PM EDTSigned Prescriptions: Disp Refills Vancomycin HCl 125 MG Oral Capsule (Vancoc*360 Ca*0 Sig: Take 1 Capsule by mouth every 6 hours. Authorizing Provider: ERNESTO HARPER * Telephone Encounter - Giovany Mendez LPN - 07/01/2023 9:31 AM EDTPending Prescriptions: Disp Refills Vancomycin HCl 125 MG Oral Capsule (Vancoc*360 Ca*0 Sig: Take 1 Capsule by mouth every 6 hours. * Telephone Encounter - Giovany Mendez LPN - 07/01/2023 9:30 AM EDT Pending Prescriptions: Disp Refills Vancomycin HCl 125 MG Oral Capsule (Vanco*360 Ca*0 Sig: Take 1 Capsule by mouth every 6 hours. 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 B12 deficiency E53.8 Degenerative cervical spinal stenosis M48.02 Peripheral neuropathy G62.9 Abnormality of gait R26.9 Thiamine deficiency E51.9 Asthma, mild persistent J45.30 Rheumatoid arthritis involving multiple sites with positive rheumatoid factor ([facility]) M05.79 Adjustment disorder with anxious mood F43.22 Essential hypertension with goal blood pressure less than 140/90 I10 Encounter for long-term (current) use of medications Z79.899 Generalized osteoarthritis of multiple sites M15.9 Chronic obstructive pulmonary disease ([facility]) J44.9 Impingement syndrome, shoulder, left M75.42 Esophageal dysphagia R13.19 Type 2 diabetes mellitus with peripheral neuropathy ([facility]) E11.42 History of Clostridium difficile colitis Z86.19 History of rotator cuff tear Z87.39 Chronic right-sided heart failure ([facility]) I50.812 Major depressive disorder, recurrent episode, in partial remission ([facility]) F33.41 Gastroesophageal reflux disease without esophagitis K21.9 Coronary artery disease involving [place] coronary artery of [place] heart without angina pectoris I25.10 snf current use of therapeutic drug Z79.899 Age-related osteoporosis without current pathological fracture M81.0 Type 2 diabetes mellitus with hemoglobin A1c goal of less than 8.0% ([facility]) E11.9 Moderate protein-calorie malnutrition ([facility]) E44.0 Type 2 diabetes mellitus with stage 3b chronic kidney disease, without long-term current use of insulin ([facility]) E11.22, N18.32 Hypertensive heart and kidney disease with chronic right heart failure and stage 3b chronic kidney disease ([facility]) I13.0, I50.812, N18.32 Primary open angle glaucoma (POAG) of both eyes, mild stage H40.1131 History of NV (myocardial infarction) I25.2 Neutropenia ([facility]) D70.9 Cerebrovascular disease, arteriosclerotic, post-stroke I67.2, Z86.73 Mild aortic stenosis I35.0 H/O Clostridium difficile infection Z86.19 DNR (do not resuscitate) Z66 History of 2019 novel coronavirus disease (COVID-19) Z86.16 Polyneuropathy associated with underlying disease ([facility]) G63 Paroxysmal atrial fibrillation ([facility]) I48.0 Labs: Lab Results Component Value Date/Time CREATININE - [facility] 1.1 (H) 05/27/2023 11:04 AM CREATININE - [facility] 1.3 (H) 08/13/2020 02:10 PM CREATININE [place] 257 03/06/2020 01:30 PM CREATININE, RANDOM URINE - [facility] 54 04/08/2023 02:23 PM CREATININE, RANDOM URINE - [facility] 256 03/06/2020 01:30 PM CREATININE-OUTSIDE LAB 1.06 (A) 08/06/2018 12:00 AM Lab Results Component Value Date/Time POTASSIUM - [facility] 4.1 05/27/2023 11:04 AM POTASSIUM - [facility] 3.2 (L) 08/13/2020 02:10 PM POTASSIUM-OUTSIDE LAB 4.2 08/06/2018 12:00 AM Lab Results Component Value Date/Time TSH - [facility] 1.48 10/15/2022 12:58 PM TSH - [facility] 3.07 09/12/2019 01:10 PM Lab Results Component Value Date/Time LDL CHOLESTEROL (CALCULATED) - [facility] 30 10/18/2020 11:07 AM LDL CHOLESTEROL (CALCULATED) - [facility] 09/12/2019 01:10 PM Uninterpretable, recommend direct LDL cholesterol testing. LDL CHOLESTEROL (CALCULATED) - [facility] 58 03/26/2018 02:05 PM LDL CHOLESTEROL (DIRECT MEASURE) - [facility] 51 12/29/2022 11:36 AM LDL CHOLESTEROL (DIRECT MEASURE) - [facility] 74 11/22/2021 11:49 AM LDL CHOLESTEROL (DIRECT MEASURE) - [facility] 27 03/06/2020 01:30 PM LDL CHOLESTEROL (DIRECT MEASURE) - [facility] 89 08/02/2007 02:51 PM LDL CHOLESTEROL (DIRECT MEASURE) - [facility] 126 (H) 04/30/2007 12:52 PM Lab Results Component Value Date/Time ALT - [facility] 41 (H) 05/27/2023 11:04 AM ALT - [facility] 21 08/13/2020 02:10 PM ALT-OUTSIDE LAB 40 08/06/2018 12:00 AM ALTERNARIA IGE - [facility] <0.10 02/15/2013 01:45 PM Hemoglobin AIC Results: Lab Results Component Value Date/Time HEMOGLOBIN A1C - [facility] 6.0 (H) 12/29/2022 11:36 AM HEMOGLOBIN A1C - [facility] 6.6 (H) 06/10/2022 04:08 PM HEMOGLOBIN A1C - [facility] 6.5 (H) 11/22/2021 11:49 AM HEMOGLOBIN A1C - [facility] 6.4 (H) 03/06/2020 01:30 PM HEMOGLOBIN A1C - [facility] 5.9 (H) 07/19/2019 04:10 PM HEMOGLOBIN A1C - [facility] 5.5 03/01/2019 10:59 AM * Telephone Encounter - Evon Lieberman - 07/01/2023 8:47 AM EDT Did you pend patient's preferred pharmacy and medication before forwarding?yes Pharmacy: [id number] [id number] [facility] Pending Prescriptions: Disp Refills Vancomycin HCl 125 MG Oral Capsule (Vanco*360 Ca*0 Sig: Take 1 Capsule by mouth every 6 hours. Last Visit: 05/27/2023 (in office), Visit date not found (telemedicine) Next Visit: 07/10/2023 If no future appointments scheduled, and last appointment is greater than a year ago, please schedule patient for a follow-up appointment Last date the medication was ordered: 03/18/2023 Is this request for a controlled substance?No [...] Description 07/10/2023 Office Visit Family Medicine Ernesto Harper[address] [place] [address] 08/10/2023 Office Visit Rheumatology Brandon Lewis MD [facility] [place] [address] Health Maintenance Due Date Last Done Comments Alpha-1 Antitrypsin 1965 DTaP,Tdap,and Td Vaccines (2 - Td or Tdap) 10/02/2020 10/02/2010, 10/31/2004 *BISPHONATE OR OTHER ACCEPTABLE MEDICATION NEEDED FOR OSTEOPOROSIS (REFER TO SMARTSET #1146) 06/28/2022 CKD PHOS USE SMARTSET 58928 04/15/2023 08/0 10/2021, 03/12/2021, 07/19/2019, Additional history exists COVID-19 Vaccine (2022-24 season) 2023 03/26/2022, 05/06/2021, 05/06/2021, Additional history [...] Additional history exists CKD HGB USE SMARTSET 22796 05/27/202405/27, 05/27/2023, 10/15/2022, Additional history exists O2 ASSESSMENT COMPLETED IN PAST YEAR FOR COPD 06/03/2024 06/03/2023 DXA Scan 05/04/2025 05/04/2023, 03/14, 01/18/2013 Pneumococcal Vaccine: 65+ Years Completed 03/05/2017, 06/28/2015, 11/25/2011, Additional history exists Fecal Occult Blood Test Discontinued 09/23/19, 08/06/2018, 02/21/2004 VITAMIN D LEVEL ONCE IN A LIFETIME-USE SMARTSET# [id number] Completed 10/18/2020, 03/06/2020, 03/26/2018, Additional history exists [...] this encounter Medical Devices Implanted Type Area Eyewear Manufacturing Supervisor Device Identifier Shelf Expiration Date Model / Serial / Lot Lens 19.5 Sn60wf - [id number] - [id number] Implanted:Qty: 1 on 11/21/2016 by Faraz Jeffers MD at OR [facility] Left: Eye RAMÓN : SURGICAL 05/14/2021 SN60WF.1 95 / [id number] 2 / Lens 19.5 Sn60wf - [id number] - [id number] Implanted:Qty: 1 on 04/22/2019 by Faraz Jeffers MD at OR [facility] Right: Eye RAMÓN : SURGICAL 07/14/2023 SN60WF.195 / [id number] / documented as of this encounter [...] and were consensually agreed upon. Care Teams Yoga Coordinator Relationship Specialty Start Date End Date Ernesto Harper[address] [place] [phone] PCP - General Internal Medicine 11/18/17 documented as of this encounter
--- OUTSIDE RECORDS SUMMARY | 2023-09-05 18:42 | External Medical Summary | Summary of Care ---
Author Name Unknown Organization [facility] Address [address] [place] [address] Phone [phone] Care Team Providers Care Sack Cleaning Hand Name Role Phone Leni Moyer Primary Care Provider [phone] Encounter Details Date Type Department Care Team Description 06/08/2023 Telephone Infectious Disease [facility] [address] [place] [address] Services, Scheduling [address] [place] [address] Allergies Active Allergy Reactions Severity Noted Date Comments Ciprofloxacin Bleeding High 05/27/2023 And rash Influenza Virus Vac Live Quad High 2020 2 years ago, flown to [facility] Methotrexate 08/19/2013 pneumonitis Other Allergy (See Comments) Rash 012 Insecticides cause breathing problems Penicillins Hives 02/01/2001 Ranitidine Rash 07/14/2001 documented as of this encounter (statuses as of 06/08/2023) Medications Medication Sig Dispensed Refills Start Date End Date Status ONETOUCH ULTRASOFT LANCETS MISC Check BS twice daily. E 11.9 1 Box Dosing Unit 11 12/15/2016 Active Nystatin (NYSTOP) 801966 UNIT/GM powderIndications:Cu taneous candidiasis APPLY TOPICALLY TO AFFECTED AREA 3 TIMES A DAY. SPRINKLE OVER AFFECTED AREA. 15 g 2 12/15/2016 Active Blood Glucose Monitoring Suppl (ONETOUCH ULTRA SYSTEM) w/Device KIT Twice daily. Dx E 11.9 1 Kit 0 12/25/2017 Active Glucose Blood (ONETOUCH ULTRA BLUE) STRPIndications:Type 2 diabetes mellitus with hemoglobin A1c goal of less than 7.0% ([facility]) Check BS twice daily E11.9 [...] by mouth in the morning. 100 Tablet 10/01/2022 Active Fluticasone Furoate-Vilanterol 200-25 MCG/ACT Inhalation [...] in 60 to 180 days Given at [facility] 1 Each 1 12/29/2022 Active Additional Information [...] the morning. 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 03/06/2020 Chronic right-sided heart failure 2019 Major depressive disorder, recurrent epi sode, in partial remission 11/03/2019 Last Assessment & Plan: Managed well with Cymbalta 60 mg daily Gastroesophageal reflux disease without esophagitis 11/03/2019 Last Assessment & Plan: Managed with pantoprazole 40 mg daily Coronary artery disease invo lving [place] coronary artery of [place] heart without angina pectoris 11/03/2019 Last Assessment [...] as of this encounter (statuses as of 06/08/2023) Resolved Problems Problem Noted Date Resolved Date [...] ICD-10 update of inactive term LOC PRIM [id number] 04/12/2003 04/15/20 17 PURE HYPERCHOLESTEROLEM 12/27/2001 08/03/20 [...] COPD, moderate 12/05/2014 CAD (coronary artery disease), [place] coronary a rtery 02/24/2022 Overview: duplicate documented as of this encounter (statuses as of 06/08/2023) Immunizations Name Administration Dates Next Due COVID-19 [...] encounter Miscellaneous Notes * Telephone Encounter - LORAINE Perez - 06/08/2023 8:30 AM EDT Pt is running fever again. feels she needs to go back on the vancomycin again Please reach out to pt. documented in this encounter Plan of Treatment Upcoming Encounters Date Type Specialty Care Team Description 07/10/2023 Office Visit Family Medicine Leni Moyer, [address] [place] [address] 08/10/2023 Office Visit Rheumatology Brandon Lewis MD [address] [facility], [place] [address] Health Maintenance Due Date Last Done Comments Alpha-1 Antitrypsin 1963 DTaP,Tdap,and Td Vaccines (2 - Td or Tdap) 10/02/2020 10/02/2010, 10/31/2004 COVID-19 Vaccine (6 - Moderna series) 05/21/2022 03/26/2022, 05/06/2021, 05/06/2021, Additional history exists *BISPHONATE OR OTHER ACCEPTABLE MEDICATION NEEDED FOR OSTEOPOROSIS (REFER TO SMARTSET #1146) 06/28/2022 CKD PHOS USE SMARTSET 38457 04/15/2023 08/0 10/2021, 03/12/2021, 07/19/2019, Additional history [...] Additional history exists CKD HGB USE SMARTSET 54371 05/27/202405/27, 05/27/2023, 10/15/2022, Additional history exists O2 ASSESSMENT COMPLETED IN PAST YEAR FOR COPD 06/03/2024 06/03/2023 DXA Scan 05/04/2025 05/04/2023, 03/14, 01/18/2013 Pneumococcal Vaccine: 65+ Years Completed 03/05/2017, 06/28/2015, 11/25/2011, Additional history exists Fecal Occult Blood Test Discontinued 09/23/19, 08/06/2018, 02/21/2004 VITAMIN D LEVEL ONCE IN A LIFETIME-USE SMARTSET# 60463 Completed 10/18/2020, 03/06/2020, 03/26/2018, Additional history exists [...] this encounter Medical Devices Implanted Type Area Slab Lifting Supervisor Device Identifier Shelf Expiration Date Model / Serial / Lot Lens 19.5 Sn60wf - [id number] - [id number] Implanted:Qty: 1 on 11/21/2016 by Faraz Jeffers MD at OR [facility] Left: Eye RAMÓN : SURGICAL 05/14/2021 SN60WF.1 95 / [id number] 2 / Lens 19.5 Sn60wf - [id number] - [id number] Implanted:Qty: 1 on 04/22/2019 by Faraz Jeffers MD at OR [facility] Right: Eye RAMÓN : SURGICAL 07/14/2023 SN60WF.195 / [id number] / documented as of this encounter [...] and were consensually agreed upon. Care Teams Sack Cleaning Hand Relationship Specialty Start Date End Date Leni Moyer, [address] [place] [address] PCP - General Internal Medicine 11/18/17 documented as of this encounter
--- OUTSIDE RECORDS SUMMARY | 2023-09-05 18:42 | External Medical Summary | Summary of Care ---
Author Name Unknown Organization [facility] Address [address] [place] [address] Phone [phone] Care Team Providers Care Production Dispatcher Name Role Phone Leni Moyer Primary Care Provider [phone] Encounter Details Date Type Department Care Team Description 06/08/2023 Telephone Infectious Disease [facility] [address] [place] [address] Services, Scheduling [address] [place] [address] Allergies Active Allergy Reactions Severity Noted Date Comments Ciprofloxacin Bleeding High 05/27/2023 And rash Influenza Virus Vac Live Quad High 2020 2 years ago, flown to [facility] [...] Dosing Unit 11 12/15/2016 Active Nystatin (NYSTOP) 018905 UNIT/GM powderIndications:Cu taneous candidiasis APPLY TOPICALLY TO AFFECTED AREA 3 TIMES A DAY. SPRINKLE OVER AFFECTED AREA. 15 g 2 12/15/2016 Active Blood Glucose Monitoring Suppl (ONETOUCH ULTRA SYSTEM) w/Device KIT Twice daily. 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 03/06/2020 Chronic right-sided heart failure 2019 Major depressive disorder, recurrent epi sode, in partial remission 11/03/2019 Last Assessment & Plan: Managed well with Cymbalta 60 mg daily Gastroesophageal reflux disease without esophagitis 11/03/2019 Last Assessment & Plan: Managed with pantoprazole 40 mg daily Coronary artery disease invo lving [place] coronary artery of [place] heart without angina pectoris 11/03/2019 Last [...] ICD-10 update of inactive term LOC PRIM [id number] 04/12/2003 04/15/20 17 PURE HYPERCHOLESTEROLEM 12/27/2001 08/03/20 [...] COPD, moderate 12/05/2014 CAD (coronary artery disease), [place] coronary a rtery 02/24/2022 Overview: duplicate [...] encounter Miscellaneous Notes * Telephone Encounter - Shelli Campos LPN - 06/08/2023 1:00 PM EDT Forwarding to Dr. Addison to advise. Shelli Campos LPN Nurse Navigator ID * Telephone Encounter - LORAINE Vincent - 06/08/2023 12:16 PM EDT Patient's calling in upset that nobody has gotten back to him yet regarding this. I advisedhim it can take a day or so for this message to reach the doctor but states "he has had enough of [facility]" Patient would still like a call regarding his 's medication because her symptoms are flaring upand she has a fever. * Telephone Encounter - LORAINE Perez - 06/08/2023 8:30 AM EDT Pt is running fever again. feels she needs to go back on the vancomycin again Please reach out to pt. documented in this encounter Plan of Treatment Upcoming Encounters Date Type Specialty Care Team Description 07/10/2023 Office Visit Family Medicine Leni Moyer, [address] [place] [address] 08/10/2023 Office Visit Rheumatology Brandon Lewis MD [address] [facility], [place] [address] Health Maintenance Due Date Last Done Comments Alpha-1 Antitrypsin 1963 DTaP,Tdap,and Td Vaccines (2 - Td or Tdap) 10/02/2020 10/02/2010, 10/31/2004 COVID-19 Vaccine (6 - Moderna series) 05/21/2022 03/26/2022, 05/06/2021, 05/06/2021, Additional history exists *BISPHONATE OR OTHER ACCEPTABLE MEDICATION NEEDED FOR OSTEOPOROSIS (REFER TO SMARTSET #1146) 06/28/2022 CKD PHOS USE SMARTSET 19010 04/15/2023 08/0 10/2021, 03/12/2021, 07/19/2019, Additional history [...] Additional history exists CKD HGB USE SMARTSET 97098 05/27/202405/27, 05/27/2023, 10/15/2022, Additional history exists O2 ASSESSMENT COMPLETED IN PAST YEAR FOR COPD 06/03/2024 06/03/2023 DXA Scan 05/04/2025 05/04/2023, 03/14, 01/18/2013 Pneumococcal Vaccine: 65+ Years Completed 03/05/2017, 06/28/2015, 11/25/2011, Additional history exists Fecal Occult Blood Test Discontinued 09/23/19, 08/06/2018, 02/21/2004 VITAMIN D LEVEL ONCE IN A LIFETIME-USE SMARTSET# 44037 Completed 10/18/2020, 03/06/2020, 03/26/2018, Additional history exists [...] this encounter Medical Devices Implanted Type Area Slitter And Rewinder Machine Operator Device Identifier Shelf Expiration Date Model / Serial / Lot Lens 19.5 Sn60wf - [id number] - [id number] Implanted:Qty: 1 on 11/21/2016 by Faraz Jeffers MD at OR [facility] Left: Eye RAMÓN : SURGICAL 05/14/2021 SN60WF.1 95 / [id number] 2 / Lens 19.5 Sn60wf - [id number] - [id number] Implanted:Qty: 1 on 04/22/2019 by Faraz Jeffers MD at OR [facility] Right: Eye RAMÓN : SURGICAL 07/14/2023 SN60WF.195 / [id number] / documented as of this encounter [...] and were consensually agreed upon. Care Teams Production Dispatcher Relationship Specialty Start Date End Date Leni Moyer, [address] [place] [address] PCP - General Internal Medicine 11/18/17 documented as of this encounter
--- OUTSIDE RECORDS SUMMARY | 2023-09-05 18:42 | External Medical Summary | Summary of Care ---
Author Name Unknown Organization [facility] Address [address] [place] [address] Phone [phone] Care Team Providers Care Broadcast Field Supervisor Name Role Phone Leni Moyer Primary Care Provider Reason for Visit * Reason Onset Date Comments Follow Up 06/08/2023 Encounter Details Date Type Department Care Team Description 06/08/2023 Telephone Infectious Disease, [facility] [address] [place] [address] Ami Addison MD [address] [place] [address] Follow Up Allergies Active Allergy Reactions Severity Noted Date Comments Ciprofloxacin Bleeding High 05/27/2023 And rash Influenza Virus Vac Live Quad High 2020 2 years ago, flown to [facility] Methotrexate 08/19/2013 pneumonitis Other Allergy (See Comments) Rash 012 Insecticides cause breathing problems Penicillins Hives 02/01/2001 Ranitidine Rash 07/14/2001 documented as of this encounter (statuses as of 06/08/2023) Medications Medication Sig Dispensed Refills Start Date End Date Status ONETOUCH ULTRASOFT LANCETS MISC Check BS twice daily. E 11.9 1 Box Dosing Unit 11 12/15/2016 Active Nystatin (NYSTOP) 132478 UNIT/GM powderIndications:Cu taneous candidiasis APPLY TOPICALLY TO AFFECTED AREA 3 TIMES A DAY. SPRINKLE OVER AFFECTED AREA. 15 g 2 12/15/2016 Active Blood Glucose Monitoring Suppl (ONETOUCH ULTRA SYSTEM) w/Device KIT Twice daily. Dx E 11.9 1 Kit 0 12/25/2017 Active Glucose Blood (WidbookTOUCH ULTRA BLUE) STRPIndications:Type 2 diabetes mellitus with [...] in 60 to 180 days Given at [facility] 1 Each 1 12/29/2022 Active Additional Information [...] th eyes, mild stage 04/02/2022 History of MA (myocardial infarction) Neutropenia 04/02/2022 Last Assessment & [...] Age-related osteoporosis without current pathological fracture 06/08/2020 halfway current use of therapeutic elysia g 03/06/2020 Chronic right-sided heart failure 2019 Major depressive disorder, recurrent epi sode, in partial remission 11/03/2019 Last Assessment & Plan: Managed well with Cymbalta 60 mg daily Gastroesophageal reflux disease without esophagitis 11/03/2019 Last Assessment & Plan: Managed with pantoprazole 40 mg daily Coronary artery disease invo lving pamunkey coronary artery of pamunkey heart without angina pectoris 11/03/2019 Last Assessment [...] ICD-10 update of inactive term LOC PRIM [id number] 04/12/2003 04/15/20 17 PURE HYPERCHOLESTEROLEM 12/27/2001 08/03/20 [...] COPD, moderate 12/05/2014 CAD (coronary artery disease), pamunkey coronary a rtery 02/24/2022 Overview: duplicate documented [...] encounter Miscellaneous Notes * Telephone Encounter - Ami Addison MD - 06/08/2023 5:16 PM EDT reports patient is having diarrhea since she stop her oral vancomycin and so it has been re-started documented in this encounter Plan of Treatment Upcoming Encounters Date Type Specialty Care Team Description 07/10/2023 Office Visit Family Medicine Leni Moyer, [address] [place] [address] 08/10/2023 Office Visit Rheumatology Brandon Lewis MD [address] [place] [address] Health Maintenance Due Date Last Done Comments Alpha-1 Antitrypsin 1963 DTaP,Tdap,and Td Vaccines (2 - Td or Tdap) 10/02/2020 10/02/2010, 10/31/2004 COVID-19 Vaccine (6 - Moderna series) 05/21/2022 03/26/2022, 05/06/2021, 05/06/2021, Additional history exists *BISPHONATE OR OTHER ACCEPTABLE MEDICATION NEEDED FOR OSTEOPOROSIS (REFER TO SMARTSET #1146) 06/28/2022 CKD PHOS USE SMARTSET 18784 04/15/2023 08/0 10/2021, 03/12/2021, 07/19/2019, Additional history [...] Additional history exists CKD HGB USE SMARTSET 45535 05/27/202405/27, 05/27/2023, 10/15/2022, Additional history exists O2 ASSESSMENT COMPLETED IN PAST YEAR FOR COPD 06/03/2024 06/03/2023 DXA Scan 05/04/2025 05/04/2023, 03/14, 01/18/2013 Pneumococcal Vaccine: 65+ Years Completed 03/05/2017, 06/28/2015, 11/25/2011, Additional history exists Fecal Occult Blood Test Discontinued 09/23/19, 08/06/2018, 02/21/2004 VITAMIN D LEVEL ONCE IN A LIFETIME-USE SMARTSET# 09016 Completed 10/18/2020, 03/06/2020, 03/26/2018, Additional history exists [...] this encounter Medical Devices Implanted Type Area Long Chain Beamer Device Identifier Shelf Expiration Date Model / Serial / Lot Lens 19.5 Sn60wf - [id number] - [id number] Implanted:Qty: 1 on 11/21/2016 by Faraz Jeffers MD at OR [facility] Left: Eye RAMÓN : SURGICAL 05/14/2021 SN60WF.1 95 / [id number] / Lens 19.5 Sn60wf - [id number] - [id number] Implanted:Qty: 1 on 04/22/2019 by Faraz Jeffers MD at OR [facility] Right: Eye RAMÓN : SURGICAL 07/14/2023 [id number] / [id number] / documented as of this encounter [...] and were consensually agreed upon. Care Teams Broadcast Field Supervisor Relationship Specialty Start Date End Date Leni Moyer, [address] [place] [address] PCP - General Internal Medicine 11/18/17 documented as of this encounter
--- OUTSIDE RECORDS SUMMARY | 2023-09-05 18:42 | External Medical Summary | Summary of Care ---
Author Name Unknown Organization [facility] Address [address] [place] [address] Phone [phone] Care Team Providers Care Tube Molder Fiberglass Name Role Phone Leni Moyer Primary Care Provider Reason for Visit * Reason Comments Re-Check Encounter Details Date Type Department Care Team Description 06/03/2023 Office Visit Infectious Disease [facility] [address] [place] [address] Ami Addison MD [address] [place] [address] Recurrent Clostridioides difficile diarrhea* Allergies Active Allergy Reactions Severity Noted Date Comments Ciprofloxacin Bleeding High 05/27/2023 And rash Influenza Virus Vac Live Quad High 2020 2 years ago, flown to [facility] Methotrexate 08/19/2013 pneumonitis Other Allergy (See Comments) Rash 012 Insecticides cause breathing problems Penicillins Hives 02/01/2001 Ranitidine Rash 07/14/2001 documented as of this encounter (statuses as of 06/03/2023) Medications Medication Sig Dispensed Refills Start Date End Date Status ONETOUCH ULTRASOFT LANCETS MISC Check BS twice daily. E 11.9 1 Box Dosing Unit 11 12/15/2016 Active Nystatin (NYSTOP) 644458 UNIT/GM powderIndications:Cu taneous candidiasis APPLY TOPICALLY TO AFFECTED AREA 3 TIMES A DAY. SPRINKLE OVER AFFECTED AREA. 15 g 2 12/15/2016 Active Blood Glucose Monitoring Suppl (ONETOUCH ULTRA SYSTEM) w/Device KIT Twice daily. Dx E 11.9 1 Kit 0 12/25/2017 Active Glucose Blood (ONETOUCH ULTRA BLUE) STRPIndications:Type 2 diabetes mellitus with hemoglobin A1c goal of less than 7.0% ([facility]) Check BS twice daily E11.9 [...] the day 100 Tablet 3 10/01/2022 Active Montelukast Sodium 10 MG Oral Tablet (Singulair) Take 1 Tablet by mouth in the morning. 100 Tablet 3 10/01/2022 Active Additional Information Patient taking differently:10 mg OralHS, Informant: At Discharge, Reported on 05/14/2023 Clopidogrel Bisulfate 75 MG Oral Tablet (pLAVix) [...] in 60 to 180 days Given at [facility] 1 Each 1 12/29/2022 Active Additional Information Patient not taking.Reported on 06/03/2023 Vancomycin HCl 125 MG Oral Capsule (Vancocin) Take 1 Capsule by mouth every 6 hours. 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 03/06/2020 Chronic right-sided heart failure 2019 Major depressive disorder, recurrent epi sode, in partial remission 11/03/2019 Last Assessment & Plan: Managed well with Cymbalta 60 mg daily Gastroesophageal reflux disease without esophagitis 11/03/2019 Last Assessment & Plan: Managed with pantoprazole 40 mg daily Coronary artery disease invo lving tanana coronary artery of tanana heart without angina pectoris 11/03/2019 Last Assessment [...] as of this encounter (statuses as of 06/03/2023) Resolved Problems Problem Noted Date Resolved Date [...] ICD-10 update of inactive term LOC PRIM [id number] 04/12/2003 04/15/20 17 PURE HYPERCHOLESTEROLEM 12/27/2001 08/03/20 [...] COPD, moderate 12/05/2014 CAD (coronary artery disease), tanana coronary a rtery 02/24/2022 Overview: duplicate documented as of this encounter (statuses as of 06/03/2023) Immunizations Name Administration Dates Next Due COVID-19 [...] Sign Reading Time Taken Comments Blood Pressure 116/76 06/03/2023 2:35 PM EDT Pulse 89 06/03/2023 2:35 PM EDT Temperature 37.2 C (98.9 F) 06/03/2023 2:35 PM ED T Respiratory Rate 16 06/03/2023 2:35 PM EDT Oxygen Saturation 96% 06/03/2023 2:35 PM EDT Inhaled Oxygen Concentration - - Weight 59.1 kg (130 lb 6.4 oz) 06/03/2023 2:35 P M EDT Height - - Body Mass Index 27.25 05/15/2023 3:17 PM EDT documented in this encounter Progress Notes * Ami Addison MD - 06/03/2023 2:42 PM EDT INFECTIOUS DISEASE [facility]: Belem Rodriguez is a 77 year old female here for follow up of C Diff diarrhea HPI: 77 y/o F PMHx C Diff infection ,ILD,HTN,OA,PAF,CVA,HTN who has been seen by ID for recurrent CDiff and FUO 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 .She was diagnosed C Diff diarrhea2 years ago and reports she has been taking oral vancomycin BID for the past 2 years .She reports she has been having 2 mushy stools a day for 2 months but prior to that she was having 2-3 watery stools a day which she desrcibes as "cow splats".Patient is accompanied by her who is fond of telling traffic jokes .It was recommended that she be monitored off oral vancomycin but she continuedto take the oral vancomycin and has 2 soft stools daily Review of patient's allergies indicates: Allergen Reactions Ciprofloxacin Bleeding And rash Influenza Virus Vaccine [Influenza Virus Vac Live Quad] 2 years ago, flown to [facility] Methotrexate pneumonitis Other Allergy (See Comments) Rash Insecticides cause breathing problems Penicillins Hives Ranitidine Rash Current Outpatient Medications Medication Sig Dispense Refill ONETOUCH ULTRASOFT LANCETS MISC Check BS twice daily. E 11.9 1 Box Dosing Unit 11 Nystatin (NYSTOP) 489056 UNIT/GM powder APPLY TOPICALLY TO AFFECTED AREA 3 TIMES A DAY. SPRINKLE OVER AFFECTED AREA. 15 g 2 Blood Glucose Monitoring Suppl (ONETOUCH ULTRA SYSTEM) w/Device KIT Twice daily. Dx E 11.9 1 Kit 0 Glucose Blood (ONETOUCH ULTRA BLUE) STRP Check BS twice daily [...] 1 Packet before bedtime. 60 Each 0 Hydroxychloroquine Sulfate 200 MG Oral Tablet (Plaquenil) Take 1 Tablet by mouth at bedtime. 30 Tablet 0 Pantoprazole Sodium 40 MG Oral Tablet Delayed Release (Protonix) 1 tablet by mouth daily 30 to 60 minutes before the first meal of the day 100 Tablet 3 Montelukast Sodium 10 MG Oral Tablet (Singulair) Take 1 Tablet by mouth in the morning. (Patient taking differently: Take 1 Tablet by mouth at bedtime.) 100 Tablet 3 Clopidogrel Bisulfate 75 MG Oral Tablet (pLAVix) Take 1 Tablet by mouth in the morning. 100 Tablet 3 Fluticasone Furoate-Vilanterol 200-25 MCG/ACT Inhalation Aerosol Powder Breath Activated (BREO ellipta) Inhale 1 Puff by mouth in the morning. Rinse mouth after use. 180 Blister Dosing Unit 3 amLODIPine Besylate 10 MG Oral Tablet (Norvasc) Take 1 Tablet by mouth in the morning. 100 Tablet 3 Ferrous Sulfate 325 (65 Fe) MG Oral Tablet (Feosol) Take 1 Tablet by mouth daily with breakfast. 30Tablet 0 Vitamin D3 50 MCG (2000 UT) Oral Capsule Take 1 Capsule by mouth in the morning. 30 Capsule 0 Albuterol Sulfate HFA 108 (90 Base) MCG/ACT Inhalation Aerosol Solution Inhale 2 Puffs by mouth every 4 hours as needed for Cough, Shortness of Breath or Wheezing. 18 g 2 B-12 1000 MCG Oral Capsule 2000mcg Thursday, [...] mouth in the morning. 30 Capsule 0 Vancomycin HCl 125 MG Oral Capsule (Vancocin) Take 1 Capsule by mouth every 6 hours. 360 Capsule 0 Metoprolol Succinate ER 25 MG [...] day. To affected area. 80 g 1 Magnesium Oxide 400 (240 Mg) MG Oral Tablet (Mag-Ox) Take 1 Tablet by mouth in the morning and 1 Tablet before bedtime. (Patient not taking: Reported on 06/03/2023) 60 Tablet 0 Zoster Vac Recomb Adjuvanted 50 MCG/0.5ML Intramuscular Suspension Reconstituted (Shingrix) Inject 0.5 mL into a large muscle now and repeat dose in 60 to 180 days Given at [facility] (Patient not taking: Reported on 06/03/2023) 1 Each 1 No current facility-administered medications for this visit. Patient Active Problem List Diagnosis Code Other [...] involving multiple sites with positive rheumatoid factor ([facility]) M05.79 Adjustment disorder with anxious mood F43.22 Essential hypertension with goal blood pressure less than 140/90 I10 Encounter for long-term (current) use of medications Z79.899 Generalized osteoarthritis of multiple sites M15.9 Chronic obstructive pulmonary disease ([facility]) J44.9 Impingement syndrome, shoulder, left M75.42 Esophageal dysphagia R13.19 Type 2 diabetes mellitus with peripheral neuropathy ([facility]) E11.42 History of Clostridium difficile colitis Z86.19 History of rotator cuff tear Z87.39 Chronic right-sided heart failure ([facility]) I50.812 Major depressive disorder, recurrent episode, in partial remission (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) E11.9 Moderate protein-calorie malnutrition ([facility]) E44.0 Type 2 diabetes mellitus with stage 3b chronic kidney disease, without long-term current use of insulin ([facility]) E11.22, N18.32 Hypertensive heart and kidney disease with chronic right heart failure and stage 3b chronic kidney disease ([facility]) I13.0, I50.812, N18.32 Primary open angle glaucoma (POAG) of both eyes, mild stage H40.1131 History of NV (myocardial infarction) I25.2 Neutropenia ([facility]) D70.9 Cerebrovascular disease, arteriosclerotic, post-stroke I67.2, Z86.73 Mild aortic stenosis I35.0 H/O Clostridium difficile infection Z86.19 DNR (do not resuscitate) Z66 History of 2019 novel coronavirus disease (COVID-19) Z86.16 Polyneuropathy associated with underlying disease (HCC) G63 Paroxysmal atrial fibrillation (HCC) I48.0 Review of Systems: Constitutional ROS: No change in weight and No fevers, sweats, or chills Gastrointestinal ROS: No abdominal pain, No change in bowel habits, No significant heartburn, No significant change in appetite, No hematemesis, No blood in stools or black tarry stools, No abdominalbloating or early satiety, and No dysphagia Rest of ROS negative BP 116/76 | Pulse 89 | Temp 37.2 C (98.9 F) (Tympanic) | Resp 16 | Wt 59.1 kg (130 lb 6.4 oz) |SpO2 96% | BMI 27.25 kg/m | BSA 1.56 m PHYSICAL EXAM: General: alert, no distress, comfortable, cooperative, and ill looking Head: Normocephalic Eye Exam: PERRLA, extraocular movements intact, conjunctiva are pink and non- injected, sclera clear Heart: regular rate & rhythm Lungs: normal respiratory rate and rhythm, decreased breath sounds Abdomen: abdomen soft and non-tender LABS: Labs reviewed as indicated below: I have reviewed her labs No leukocytosis MICROBIOLOGY DATA: I have reviewed her cultures IMAGING: I have reviewed her imaging ASSESSMENT:Patient with recurrent C Diff diarrhea on oral vancomycin BID for 2 years ,it was recommended that she stop taking the oral vancomycin but she reports she forgot and continued to take the oral vancomycin and her BM's have remained soft and not more than twice a day .She is agreeable to stopping the oral vancomycin with close monitoring PLAN: Discontinue medication(s): Oral vancomycin Patient education: C Diff diarrhea Will monitor closely off oral vancomycin Follow up: 3 months Ami Addison MD Infectious Disease [address] [address] documented in this encounter Nursing Notes * Haylee Schumacher LPN - 06/03/2023 2:37 PM EDT Belem Rodriguez presents for 3 month recheck. Medications & HM reviewed. documented in this encounter Plan of Treatment Upcoming Encounters Date Type Specialty Care Team Description 06/04/2023 Office Visit Family Medicine Alissa Moran, PA-C [address] [place] [address] [place] [address] 07/10/2023 Office Visit Family Medicine Leni Moyer DO [address] [place] [address] [place] [address] 08/10/2023 [facility] [address] [facility] Maintenance Due Date Last Done Comments Alpha-1 Antitrypsin 1963 DTaP,Tdap,and Td Vaccines (2 - Td or Tdap) 10/02/2020 10/02/2010, 10/31/2004 COVID-19 Vaccine (6 - Moderna series) 05/21/2022 03/26/2022, 05/06/2021, 05/06/2021, Additional history exists *BISPHONATE OR OTHER ACCEPTABLE MEDICATION NEEDED FOR OSTEOPOROSIS (REFER TO SMARTSET #1146) 06/28/2022 CKD PHOS USE SMARTSET 07417 04/15/2023 08/0 10/2021, 03/12/2021, 07/19/2019, Additional history [...] Additional history exists CKD HGB USE SMARTSET 68513 05/27/202405/27, 05/27/2023, 10/15/2022, Additional history exists O2 ASSESSMENT COMPLETED IN PAST YEAR FOR COPD 05/27/2024 05/27/2023 DXA Scan 05/04/2025 05/04/2023, 03/14, 01/18/2013 Pneumococcal Vaccine: 65+ Years Completed 03/05/2017, 06/28/2015, 11/25/2011, Additional history exists Fecal Occult Blood Test Discontinued 09/23/19, 08/06/2018, 02/21/2004 VITAMIN D LEVEL ONCE IN A LIFETIME-USE SMARTSET# 61797 Completed 10/18/2020, 03/06/2020, 03/26/2018, Additional history exists [...] this encounter Medical Devices Implanted Type Area Salad Counter Attendant Device Identifier Shelf Expiration Date Model / Serial / Lot Lens 19.5 Sn60wf - [id number] - [id number] Implanted:Qty: 1 on 11/21/2016 by Faraz Jeffers MD at OR [facility] Left: Eye RAMÓN : SURGICAL 05/14/2021 SN60WF.1 95 / [id number] / Lens 19.5 Sn60wf - [id number] - [id number] Implanted:Qty: 1 on 04/22/2019 by Faraz Jeffers MD at OR [facility] Right: Eye RAMÓN : SURGICAL 07/14/2023 SN60WF.195 / [id number] / documented as of this encounter Visit Diagnoses Diagnosis Recurrent Clostridioides difficile diarrhea- Primary documented in this encounter Advance Directives Latest [...] and were consensually agreed upon. Care Teams Tube Molder Fiberglass Relationship Specialty Start Date End Date Leni Moyer[address] [place] [address] PCP - General Internal Medicine 11/18/17 documented as of this encounter
--- OUTSIDE RECORDS SUMMARY | 2023-09-05 18:42 | External Medical Summary | Summary of Care ---
Author Name Unknown Organization [facility] Address [address] [place] [address] Phone [phone] Care Team Providers Care Clinical Courier Name Role Phone Leni Moyer Primary Care Provider Encounter Details Date Type Department Care Team Description 06/08/2023 Telephone Infectious Disease [facility] [address] [place] [address] Services, Scheduling [address] [place] [address] Allergies Active Allergy Reactions Severity Noted Date Comments Ciprofloxacin Bleeding High 05/27/2023 And rash Influenza Virus Vac Live Quad High 2020 2 years ago, flown to [facility] Methotrexate 08/19/2013 pneumonitis Other Allergy (See Comments) Rash 012 Insecticides cause breathing problems Penicillins Hives 02/01/2001 Ranitidine Rash 07/14/2001 documented as of this encounter (statuses as of 06/08/2023) Medications Medication Sig Dispensed Refills Start Date End Date Status ONETOUCH ULTRASOFT LANCETS MISC Check BS twice daily. E 11.9 1 Box Dosing Unit 11 12/15/2016 Active Nystatin (NYSTOP) 659112 UNIT/GM powderIndications:Cu taneous candidiasis APPLY TOPICALLY TO AFFECTED AREA 3 TIMES A DAY. SPRINKLE OVER AFFECTED AREA. 15 g 2 12/15/2016 Active Blood Glucose Monitoring Suppl (ONETOUCH ULTRA SYSTEM) w/Device KIT Twice daily. 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 03/06/2020 Chronic right-sided heart failure 2019 Major depressive disorder, recurrent epi sode, in partial remission 11/03/2019 Last Assessment & Plan: Managed well with Cymbalta 60 mg daily Gastroesophageal reflux disease without esophagitis 11/03/2019 Last Assessment & Plan: Managed with pantoprazole 40 mg daily Coronary artery disease invo lving chipewwa coronary artery of chipewwa heart without angina pectoris 11/03/2019 Last Assessment [...] ICD-10 update of inactive term LOC PRIM [id number] 04/12/2003 04/15/20 17 PURE HYPERCHOLESTEROLEM 12/27/2001 08/03/20 [...] COPD, moderate 12/05/2014 CAD (coronary artery disease), chipewwa coronary a rtery 02/24/2022 Overview: duplicate documented [...] Miscellaneous Notes * Telephone Encounter - LORAINE Vincent - [...] Description 07/10/2023 Office Visit Family Medicine Leni Moyer[address] [place] [address] 08/10/2023 [facility] [address] [facility] [address] Health Maintenance Due Date Last Done Comments Alpha-1 Antitrypsin 1963 DTaP,Tdap,and Td Vaccines (2 - Td or Tdap) 10/02/2020 10/02/2010, 10/31/2004 COVID-19 Vaccine (6 - Moderna series) 05/21/2022 03/26/2022, 05/06/2021, 05/06/2021, Additional history exists *BISPHONATE OR OTHER ACCEPTABLE MEDICATION NEEDED FOR OSTEOPOROSIS (REFER TO SMARTSET #1146) 06/28/2022 CKD PHOS USE SMARTSET 69341 04/15/2023 08/0 10/2021, 03/12/2021, 07/19/2019, Additional history [...] Additional history exists CKD HGB USE SMARTSET 23551 05/27/202405/27, 05/27/2023, 10/15/2022, Additional history exists O2 ASSESSMENT COMPLETED IN PAST YEAR FOR COPD 06/03/2024 06/03/2023 DXA Scan 05/04/2025 05/04/2023, 03/14, 01/18/2013 Pneumococcal Vaccine: 65+ Years Completed 03/05/2017, 06/28/2015, 11/25/2011, Additional history exists Fecal Occult Blood Test Discontinued 09/23/19, 08/06/2018, 02/21/2004 VITAMIN D LEVEL ONCE IN A LIFETIME-USE SMARTSET# 47881 Completed 10/18/2020, 03/06/2020, 03/26/2018, Additional history exists [...] this encounter Medical Devices Implanted Type Area Data Modeler Device Identifier Shelf Expiration Date Model / Serial / Lot Lens 19.5 Sn60wf - [id number] - [id number] Implanted:Qty: 1 on 11/21/2016 by Faraz Jeffers MD at [facility] Left: Eye RAMÓN : SURGICAL 05/14/2021 SN60WF.1 95 / [id number] / Lens 19.5 Sn60wf - [id number] - [id number] Implanted:Qty: 1 on 04/22/2019 by Faraz Jeffers MD at [facility] Right: Eye RAMÓN : SURGICAL 07/14/2023 SN60WF.195 / [id number] / documented as of this encounter [...] and were consensually agreed upon. Care Teams Clinical Courier Relationship Specialty Start Date End Date Leni Moyer[address] [place] [address] PCP - General Internal Medicine 11/18/17 documented as of this encounter
--- OUTSIDE RECORDS SUMMARY | 2023-09-05 18:42 | External Medical Summary | Summary of Care ---
Author Name Unknown Organization [facility] Address [address] [facility] [address] Phone [phone] Care Team Providers Care Frozen Meat Cutter Name Role Phone Leni Moyer Primary Care Provider [phone] Reason for Visit * Reason Onset Date Comments Test Results 05/29/2023 Encounter Details Date Type Department Care Team Description 05/29/[address] [address] Keily Reese MD [address] [place] [address] [place] [address] Test Results Allergies Active Allergy Reactions Severity Noted Date Comments Ciprofloxacin Bleeding High 05/27/2023 And rash Influenza Virus Vac Live Quad High 2020 2 years ago, flown to [facility] Methotrexate 08/19/2013 pneumonitis Other Allergy (See Comments) Rash 012 Insecticides cause breathing problems Penicillins Hives 02/01/2001 Ranitidine Rash 07/14/2001 documented as of this encounter (statuses as of 06/09/2023) Medications Medication Sig Dispensed Refills Start Date End Date Status ONETOUCH ULTRASOFT LANCETS MISC Check BS twice daily. E 11.9 1 Box Dosing Unit 11 7 Active Nystatin (NYSTOP) 676276 UNIT/GM powderIndications:C utaneous candidiasis APPLY TOPICALLY TO AFFECTED AREA 3 TIMES A DAY. SPRINKLE OVER AFFECTED AREA. 15 g 2 7 Active Blood Glucose Monitoring Suppl (HYGIEIA ULTRA SYSTEM) w/Device KIT Twice daily. Dx E 11.9 1 Kit 0 8 Active Glucose Blood (SporTOUCH ULTRA BLUE) STRPIndications:Typ e 2 diabetes mellitus with hemoglobin A1c goal of less than 7.0% ([facility]) Check BS twice daily E11.9 100 Strip 11 8 Active betamethasone dipropionate (DIPROSONE) 0.05 % creamIndications:Ra sh and nonspecific skin eruption,Itching Apply topically to affected area 2 times a day. To affected area. 45 g 1 8 Active Additional Information Patient taking differently:TopicalBID PRN, [...] before bedtime. 60 Each 0 3 Active Hydroxychloroquine Sulfate 200 MG Oral Tablet (Plaquenil) Take 1 Tablet by mouth at bedtime. 30 Tablet 0 3 Active Pantoprazole Sodium 40 MG Oral Tablet Delayed Release (Protonix)Indicatio ns:Gastroesophageal reflux disease, unspecified whether esophagitis present 1 tablet by mouth daily 30 to 60 minutes before the first meal of the day 100 Tablet 3 3 Active Clopidogrel Bisulfate 75 MG Oral Tablet (pLAVix) Take 1 Tablet by mouth in the morning. 100 Tablet 3 3 Active Fluticasone Furoate-Vilanterol 200-25 MCG/ACT Inhalation Aerosol Powder Breath Activated (BREO ellipta)Indications :Mild persistent asthma without complication Inhale 1 Puff by mouth in the morning. Rinse mouth after use. 180 Blister Dosing Unit 3 3 Active amLODIPine Besylate 10 MG Oral Tablet (Norvasc) Take 1 Tablet by mouth in the morning. 100 Tablet 3 3 Active Ferrous Sulfate 325 (65 [...] Asthma J45.30 72 mL 3 3 Active Magnesium Oxide 400 (240 Mg) MG Oral Tablet (Mag-Ox) Take 1 Tablet by mouth in the morning and 1 Tablet before bedtime. 60 Tablet 0 3 Active Additional Information Patient not taking.Reported on 06/03/2023 Ocuvite-Lutein Oral Capsule Take 1 Capsule by mouth in the morning. 30 Capsule 0 3 Active Zoster Vac Recomb Adjuvanted 50 MCG/0.5ML Intramuscular Suspension Reconstituted (Shingrix) Inject 0.5 mL into a large muscle now and repeat dose in 60 to 180 days Given at [facility] 1 Each 1 3 Active Additional Information Patient not taking.Reported on 06/03/2023 Vancomycin HCl 125 MG Oral Capsule (Vancocin) Take 1 Capsule by mouth every 6 hours. 360 Capsule 0 3 Active Metoprolol Succinate ER 25 MG Oral Tablet Extended Release 24 Hour (toPROL XL) TAKE ONE TABLET BY MOUTH EVERY MORNING 100 Tablet 1 3 03/10/20 24 Active predniSONE 5 MG Oral [...] MOUTH EVERY MORNING 100 Tablet 3 3 05/18/20 24 Active Triamcinolone Acetonide 0.1 % External Cream (Aristocort)Indicat ions:Rash and nonspecific skin eruption Apply topically to affected area 2 times a day. To affected area. 80 g 1 3 Active Montelukast Sodium 10 MG Oral Tablet (Singulair) Take 1 Tablet by mouth in the morning. 100 Tablet 3 3 06/08/20 23 Discontinue d(Refill) Azithromycin 250 MG Oral Tablet (Zithromax)Indicati ons:Bronchitis, complicated Take 2 tabs by mouth on the first day, then 1 tab daily on days two through five 6 Tablet 0 3 06/01/20 23 documented as of this encounter (statuses as of 06/09/2023) Active Problems Problem Noted Date Polyneuropathy associated with underlyin g disease 10/15/2022 Paroxysmal atrial fibrillation History of 2019 novel coronavirus diseas e (COVID-19) 09/18/2022 DNR (do not resuscitate) 09/17/2022 H/O Clostridium difficile infection 08/15 Primary open angle glaucoma (POAG) of froilan th eyes, mild stage 04/02/2022 History of [place] (myocardial infarction) Neutropenia 04/02/2022 Last Assessment & [...] Age-related osteoporosis without current pathological fracture 06/08/2020 [facility] current use of therapeutic elysia g 03/06/2020 Chronic right-sided heart failure 2019 Major depressive disorder, recurrent epi sode, in partial remission 11/03/2019 Last Assessment & Plan: Managed well with Cymbalta 60 mg daily Gastroesophageal reflux disease without esophagitis 11/03/2019 Last Assessment & Plan: Managed with pantoprazole 40 mg daily Coronary artery disease invo lving [place] coronary artery of [place] heart without angina pectoris 11/03/2019 Last Assessment [...] as of this encounter (statuses as of 06/09/2023) Resolved Problems Problem Noted Date Resolved Date [...] ICD-10 update of inactive term LOC PRIM [id number] 04/12/2003 04/15/20 17 PURE HYPERCHOLESTEROLEM 12/27/2001 08/03/20 [...] COPD, moderate 12/05/2014 CAD (coronary artery disease), [place] coronary a rtery 02/24/2022 Overview: duplicate documented as of this encounter (statuses as of 06/09/2023) Immunizations Name Administration Dates Next Due COVID-19 mRNA, LNP-s, No Pre serve, 2-Dose Series (Moderna) 05/06/2021,01/31/2021,01/02/2021 COVID-19, LNP-s, No Preserve , Ptee-sucrose, Ages 12+ (Pfizer) 03/26/2022 COVID-19, mRNA, LNP-s, [...] encounter Miscellaneous Notes * Telephone Encounter - Giovany Mendez LPN - 06/09/2023 1:15 PM EDT Provider to address: PCP Reason for Call: Test Results Contact: Telephone Call Contact Type: Test Results Outcome: PT aware She will have blood work re drawn around 06/03 Total Time including non face to face (minutes): 5 * Telephone Encounter - Shavon Manning CMA - 06/02/2023 2:31 PM EDT I called and her was in town with the cell phone. He will have her call when he gets home. * Telephone Encounter - Keily Reese MD - 05/29/2023 4:14 PM EDT Please call the pt Your repeat potassium is better - and your kidney function is better Your liver enzymes are elevated but stable Your one of the blood count is slightly low -- it is likely due to recent infection -- looks like Alissa is repeating the lab in 1 week documented in this encounter Plan of Treatment Upcoming Encounters Date Type Specialty Care Team Description 07/10/2023 Office Visit Family Medicine Leni Moyer, [address] [place] [id number] 08/10/2023 Office Visit Rheumatology Brandon Lewis MD [facility] [place] [address] Health Maintenance Due Date Last Done Comments Alpha-1 Antitrypsin 1963 DTaP,Tdap,and Td Vaccines (2 - Td or Tdap) 10/02/2020 10/02/2010, 10/31/2004 COVID-19 Vaccine (6 - Moderna series) 05/21/2022 03/26/2022, 05/06/2021, 05/06/2021, Additional history exists *BISPHONATE OR OTHER ACCEPTABLE MEDICATION NEEDED FOR OSTEOPOROSIS (REFER TO SMARTSET #1146) 06/28/2022 CKD PHOS USE SMARTSET 18824 04/15/2023 08/0 10/2021, 03/12/2021, 07/19/2019, Additional history [...] Additional history exists CKD HGB USE SMARTSET 62256 05/27/202405/27, 05/27/2023, 10/15/2022, Additional history exists O2 ASSESSMENT COMPLETED IN PAST YEAR FOR COPD 06/03/2024 06/03/2023 DXA Scan 05/04/2025 05/04/2023, 03/14, 01/18/2013 Pneumococcal Vaccine: 65+ Years Completed 03/05/2017, 06/28/2015, 11/25/2011, Additional history exists Fecal Occult Blood Test Discontinued 09/23/19, 08/06/2018, 02/21/2004 VITAMIN D LEVEL ONCE IN A LIFETIME-USE SMARTSET# 23594 Completed 10/18/2020, 03/06/2020, 03/26/2018, Additional history exists Colonoscopy Discontinued 02/14/2021, 04/2 02/2017, 01/07/2017, Additional history exists Colorectal Cancer Screening [...] this encounter Medical Devices Implanted Type Area Manufacturers Agent Device Identifier Shelf Expiration Date Model / Serial / Lot Lens 19.5 Sn60wf - [id number] - [id number] Implanted:Qty: 1 on 11/21/2016 by Faraz Jeffers MD at OR [facility] Left: Eye RAMÓN : SURGICAL 05/14/2021 SN60WF.1 95 / [id number] / Lens 19.5 Sn60wf - [id number] - [id number] Implanted:Qty: 1 on 04/22/2019 by Faraz Jeffers MD at OR [facility] Right: Eye RAMÓN : SURGICAL 07/14/2023 SN60WF.195 / [id number] / documented as of this encounter [...] and were consensually agreed upon. Care Teams Frozen Meat Cutter Relationship Specialty Start Date End Date Leni Moyer[address] [place] [address] PCP - General Internal Medicine 11/18/17 documented as of this encounter
--- OUTSIDE RECORDS SUMMARY | 2023-09-05 18:42 | External Medical Summary | Summary of Care ---
Author Name Unknown Organization [facility] Address [address] [facility] [address] Phone [phone] Care Team Providers Care Shoe Polisher Name Role Phone Leni Moyer Primary Care Provider Reason for Visit * Reason Onset Date Comments Test Results 05/29/2023 Encounter Details Date Type Department Care Team Description 05/29/[address] [address] Keily Reese MD [address] [place] [address] [place] [address] Test Results Allergies Active Allergy Reactions Severity Noted Date Comments Ciprofloxacin Bleeding High 05/27/2023 And rash Influenza Virus Vac Live Quad High 2020 2 years ago, flown to [facility] Methotrexate 08/19/2013 pneumonitis Other Allergy (See Comments) Rash 012 Insecticides cause breathing problems Penicillins Hives 02/01/2001 Ranitidine Rash 07/14/2001 documented as of this encounter (statuses as of 06/02/2023) Medications Medication Sig Dispensed Refills Start Date End Date Status ONETOUCH ULTRASOFT LANCETS MISC Check BS twice daily. E 11.9 1 Box Dosing Unit 11 12/15/2016 Active Nystatin (NYSTOP) 633500 UNIT/GM powderIndications:Cu taneous candidiasis APPLY TOPICALLY TO AFFECTED AREA 3 TIMES A DAY. SPRINKLE OVER AFFECTED AREA. 15 g 2 12/15/2016 Active Blood Glucose Monitoring Suppl (Survmetrics ULTRA SYSTEM) w/Device KIT Twice daily. Dx E 11.9 1 Kit 0 12/25/2017 Active Glucose Blood (ONETOUCH ULTRA BLUE) STRPIndications:Type 2 diabetes mellitus with hemoglobin A1c goal of less than 7.0% ([facility]) Check BS twice daily E11.9 [...] before bedtime. 60 Tablet 0 10/01/2022 Active Ocuvite-Lutein Oral Capsule Take 1 Capsule by mouth in the morning. 30 Capsule 0 10/01/2022 Active Zoster Vac Recomb Adjuvanted 50 MCG/0.5ML Intramuscular Suspension Reconstituted (Shingrix) Inject 0.5 mL into a large muscle now and repeat dose in 60 to 180 days Given at [facility] 1 Each 1 12/29/2022 Active Vancomycin HCl 125 MG Oral Capsule [...] affected area. 80 g 1 05/27/2023 Active Azithromycin 250 MG Oral Tablet (Zithromax)Indicatio ns:Bronchitis, complicated Take 2 tabs by mouth on the first day, then 1 tab daily on days two through five 6 Tablet 0 05/27/2023 3 documented as of this encounter (statuses as of 06/02/2023) Active Problems Problem Noted Date Polyneuropathy associated with underlyin g disease 10/15/2022 Paroxysmal atrial fibrillation 3 History of 2019 novel coronavirus diseas e (COVID-19) 09/18/2022 DNR (do not resuscitate) 09/17/2022 H/O Clostridium difficile infection 08/15 Primary open angle glaucoma (POAG) of froilan th eyes, mild stage 04/02/2022 History of [place] (myocardial infarction) Neutropenia 04/02/2022 Last Assessment & [...] Age-related osteoporosis without current pathological fracture 06/08/2020 residential current use of therapeutic elysia g 03/06/2020 Chronic right-sided heart failure 2019 Major depressive disorder, recurrent epi sode, in partial remission 11/03/2019 Last Assessment & Plan: Managed well with Cymbalta 60 mg daily Gastroesophageal reflux disease without esophagitis 11/03/2019 Last Assessment & Plan: Managed with pantoprazole 40 mg daily Coronary artery disease invo lving [place] coronary artery of [place] heart without angina pectoris 11/03/2019 Last Assessment [...] as of this encounter (statuses as of 06/02/2023) Resolved Problems Problem Noted Date Resolved Date [...] ICD-10 update of inactive term LOC PRIM [id number] 04/12/2003 04/15/20 17 PURE HYPERCHOLESTEROLEM 12/27/2001 08/03/20 [...] COPD, moderate 12/05/2014 CAD (coronary artery disease), [place] coronary a rtery 02/24/2022 Overview: duplicate documented as of this encounter (statuses as of 06/02/2023) Immunizations Name Administration Dates Next Due COVID-19 [...] encounter Miscellaneous Notes * Telephone Encounter - Shavon Manning CMA [...] Encounters Date Type Specialty Care Team Description 06/03/2023 Office Visit Infectious Disease Ami Addison MD [address] [place] [address] 06/04/2023 Office Visit Family Medicine Alissa Moran PA-Erwin [address] [place] [address] [place] [address] 07/10/2023 Office Visit Family Medicine Leni Moyer DO [address] [place] [address] [place] [address] 08/10/2023 Office Visit Rheumatology Brandon Lewis MD [facility] [place] [address] Health Maintenance Due Date Last Done Comments Alpha-1 Antitrypsin 1963 DTaP,Tdap,and Td Vaccines (2 - Td or Tdap) 10/02/2020 10/02/2010, 10/31/2004 COVID-19 Vaccine (6 - Moderna series) 05/21/2022 03/26/2022, 05/06/2021, 05/06/2021, Additional history exists *BISPHONATE OR OTHER ACCEPTABLE MEDICATION NEEDED FOR OSTEOPOROSIS (REFER TO SMARTSET #1146) 06/28/2022 CKD PHOS USE SMARTSET 64063 04/15/2023 08/0 10/2021, 03/12/2021, 07/19/2019, Additional history [...] Additional history exists CKD HGB USE SMARTSET 17578 05/27/202405/27, 05/27/2023, 10/15/2022, Additional history exists O2 ASSESSMENT COMPLETED IN PAST YEAR FOR COPD 05/27/2024 05/27/2023 DXA Scan 05/04/2025 05/04/2023, 03/14, 01/18/2013 Pneumococcal Vaccine: 65+ Years Completed 03/05/2017, 06/28/2015, 11/25/2011, Additional history exists Fecal Occult Blood Test Discontinued 09/23/19, 08/06/2018, 02/21/2004 VITAMIN D LEVEL ONCE IN A LIFETIME-USE SMARTSET# 59161 Completed 10/18/2020, 03/06/2020, 03/26/2018, Additional history exists [...] this encounter Medical Devices Implanted Type Area Dough Mixing Machine Operator Device Identifier Shelf Expiration Date Model / Serial / Lot Lens 19.5 Sn60wf - [id number] - [id number] Implanted:Qty: 1 on 11/21/2016 by Faraz Jeffers MD at OR [facility] Left: Eye RAMÓN : SURGICAL 05/14/2021 SN60WF.1 95 / [id number] 2 / Lens 19.5 Sn60wf - [id number] - [id number] Implanted:Qty: 1 on 04/22/2019 by Faraz Jeffers MD at OR [facility] Right: Eye RAMÓN : SURGICAL 07/14/2023 SN60WF.195 / [id number] / documented as of this encounter [...] and were consensually agreed upon. Care Teams Shoe Polisher Relationship Specialty Start Date End Date Leni Moyer[address] [place] [address] PCP - General Internal Medicine 11/18/17 documented as of this encounter
--- OUTSIDE RECORDS SUMMARY | 2023-09-05 18:42 | External Medical Summary | Summary of Care ---
Author Name Unknown Organization [facility] Address [address] [facility] [place] [address] Phone [phone] Care Team Providers Care Overnight Associate Name Role Phone Leni Moyer DO Primary Care Provider Reason for Visit * Reason Comments Medication Refill Encounter Details Date Type Department Care Team Description 06/08/2023 Refill Family Medicine [address] [place] [address] Leni Moyer DO [address] [place] [address] [place] [address] Gastroesophageal reflux disease, unspecified whether esophagitis present Allergies Active Allergy Reactions Severity Noted Date Comments Ciprofloxacin Bleeding High 05/27/2023 And rash Influenza Virus Vac Live Quad High 2020 2 years ago, flown to [facility] Methotrexate 08/19/2013 pneumonitis Other Allergy (See Comments) Rash 012 Insecticides cause breathing problems Penicillins Hives 02/01/2001 Ranitidine Rash 07/14/2001 documented as of this encounter (statuses as of 06/08/2023) Medications Medication Sig Dispensed Refills Start Date End Date Status ONETOUCH ULTRASOFT LANCETS MISC Check BS twice daily. E 11.9 1 Box Dosing Unit 11 12/15/2016 Active Nystatin (NYSTOP) 147356 UNIT/GM powderIndications:Cu taneous candidiasis APPLY TOPICALLY TO AFFECTED AREA 3 TIMES A DAY. SPRINKLE OVER AFFECTED AREA. 15 g 2 12/15/2016 Active Blood Glucose Monitoring Suppl (Hiptype ULTRA SYSTEM) w/Device KIT Twice daily. Dx E 11.9 1 Kit 0 12/25/2017 Active Glucose Blood (SmartCare systemTOUCH ULTRA BLUE) STRPIndications:Type 2 diabetes mellitus with hemoglobin A1c goal of less than 7.0% ([facility]) Check BS twice daily E11.9 [...] in 60 to 180 days Given at [facility] 1 Each 1 12/29/2022 Active [...] th eyes, mild stage 04/02/2022 History of [place] (myocardial infarction) Neutropenia 04/02/2022 Last Assessment & [...] mg daily Coronary artery disease invo lving [place] coronary artery of [place] heart without angina pectoris 11/03/2019 Last Assessment [...] ICD-10 update of inactive term LOC PRIM [id number] 04/12/2003 04/15/20 17 PURE HYPERCHOLESTEROLEM 12/27/2001 08/03/20 [...] COPD, moderate 12/05/2014 CAD (coronary artery disease), [place] coronary a rtery 02/24/2022 Overview: duplicate documented [...] encounter Miscellaneous Notes * Telephone Encounter - CECILIA Perales Tech - 06/08/2023 8:49 AM EDTNo prescriptions requested or ordered in this encounter documented in this encounter Plan of Treatment Upcoming Encounters Date Type Specialty Care Team Description 07/10/2023 Office Visit Family Medicine Leni Moyer, [address] [place] [address] 08/10/2023 Office Visit Rheumatology Brandon Lewis MD [address] [facility] [place], [place] [address] Health Maintenance Due Date Last Done Comments Alpha-1 Antitrypsin 1963 DTaP,Tdap,and Td Vaccines (2 - Td or Tdap) 10/02/2020 10/02/2010, 10/31/2004 COVID-19 Vaccine (6 - Moderna series) 05/21/2022 03/26/2022, 05/06/2021, 05/06/2021, Additional history exists *BISPHONATE OR OTHER ACCEPTABLE MEDICATION NEEDED FOR OSTEOPOROSIS (REFER TO SMARTSET #1146) 06/28/2022 CKD PHOS USE SMARTSET 75264 04/15/202310/2021, 03/12/2021, 07/19/2019, Additional history exists Influenza Vaccine [...] Additional history exists CKD HGB USE SMARTSET 83181 05/27/202405/27, 05/27/2023, 10/15/2022, Additional history exists O2 ASSESSMENT COMPLETED IN PAST YEAR FOR COPD 06/03/2024 06/03/2023 DXA Scan 05/04/2025 05/04/2023, 03/14, 01/18/2013 Pneumococcal Vaccine: 65+ Years Completed 03/05/2017, 06/28/2015, 11/25/2011, Additional history exists Fecal Occult Blood Test Discontinued 09/23/19, 08/06/2018, 02/21/2004 VITAMIN D LEVEL ONCE IN A LIFETIME-USE SMARTSET# 10940 Completed 10/18/2020, 03/06/2020, 03/26/2018, Additional history exists [...] this encounter Medical Devices Implanted Type Area Diversified Crops Supervisor Device Identifier Shelf Expiration Date Model / Serial / Lot Lens 19.5 Sn60wf - [id number] - [id number] Implanted:Qty: 1 on 11/21/2016 by Faraz Jeffers MD at OR [facility] Left: Eye RAMÓN : SURGICAL 05/14/2021 SN60WF.1 95 / [id number] 2 / Lens 19.5 Sn60wf - [id number] - [id number] Implanted:Qty: 1 on 04/22/2019 by Faraz Jeffers MD at OR [facility] Right: Eye RAMÓN : SURGICAL 07/14/2023 SN60WF.195 / [id number] / documented as of this encounter [...] and were consensually agreed upon. Care Teams Overnight Associate Relationship Specialty Start Date End Date Leni Moyer, [address] [place] [address] PCP - General Internal Medicine 11/18/17 documented as of this encounter
--- OUTSIDE RECORDS SUMMARY | 2023-09-05 18:42 | External Medical Summary | Summary of Care ---
Author Name Unknown Organization [facility] Address [address] [place] [address] Phone [phone] Care Team Providers Care Analytical Lead Name Role Phone MoyerLeni cordero Primary Care Provider [phone] Reason for Visit * Reason Comments Medication Refill Encounter Details Date Type Department Care Team Description 06/08/2023 Refill [facility] [address] [place] [address] Reny Barrera PA-C [address] [place] [address] Allergies Active Allergy Reactions Severity Noted Date Comments Ciprofloxacin Bleeding High 05/27/2023 And rash Influenza Virus Vac Live Quad High 2020 2 years ago, flown to [facility] Methotrexate 08/19/2013 pneumonitis Other Allergy (See Comments) Rash 012 Insecticides cause breathing problems Penicillins Hives 02/01/2001 Ranitidine Rash 07/14/2001 documented as of this encounter (statuses as of 06/08/2023) Medications Medication Sig Dispensed Refills Start Date End Date Status SevconTOUCH ULTRASOFT LANCETS MISC Check BS twice daily. E 11.9 1 Box Dosing Unit 11 12/15/2016 Active Nystatin (NYSTOP) 167181 UNIT/GM powderIndications:C utaneous candidiasis APPLY TOPICALLY TO AFFECTED AREA 3 TIMES A DAY. SPRINKLE OVER AFFECTED AREA. 15 g 2 12/15/2016 Active Blood Glucose Monitoring Suppl (ONETOSafehis ULTRA SYSTEM) w/Device KIT Twice daily. Dx E 11.9 1 Kit 0 12/25/2017 Active Glucose Blood (SymwaveUCH ULTRA BLUE) STRPIndications:Typ e 2 diabetes mellitus [...] in 60 to 180 days Given at [facility] 1 Each 1 12/29/2022 Active Additional [...] the morning. 100 Tablet 3 06/08/2023 Active Montelukast Sodium 10 MG Oral Tablet (Singulair) Take 1 Tablet by mouth in the morning. 100 Tablet 3 10/01/2022 06/08/20 23 Discontinu ed(Refill) documented as of this encounter (statuses as of 06/08/2023) Active Problems Problem Noted Date Polyneuropathy associated with underlyin g disease 10/15/2022 Paroxysmal atrial fibrillation 3 History of 2019 novel coronavirus diseas e (COVID-19) 09/18/2022 DNR (do not resuscitate) 09/17/2022 H/O Clostridium difficile infection 08/15 Primary open angle glaucoma (POAG) of froilan th eyes, mild stage 04/02/[address] (myocardial infarction) Neutropenia 04/02/2022 Last Assessment & [...] Age-related osteoporosis without current pathological fracture 06/08/2020 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 03/06/2020 Chronic right-sided heart failure 2019 Major depressive disorder, recurrent epi sode, in partial remission 11/03/2019 Last Assessment & Plan: Managed well with Cymbalta 60 mg daily Gastroesophageal reflux disease without esophagitis 11/03/2019 Last Assessment & Plan: Managed with pantoprazole 40 mg daily Coronary artery disease invo lving [place] coronary artery of [place] heart without angina pectoris 11/03/2019 Last Assessment [...] ICD-10 update of inactive term LOC PRIM [id number] 04/12/2003 04/15/20 17 PURE HYPERCHOLESTEROLEM 12/27/2001 08/03/20 [...] COPD, moderate 12/05/2014 CAD (coronary artery disease), [place] coronary a rtery 02/24/2022 Overview: duplicate documented [...] Telephone Encounter - Fernandez Singh MD - 06/08/2023 7:40 AM EDTSigned Prescriptions: Disp Refills Montelukast Sodium 10 MG Oral Tablet (Sing*100 Ta*3 Sig: Take 1 Tablet by mouth in the morning.Authorizing Provider: FERNANDEZ SINGH documented in this encounter Plan of Treatment Upcoming Encounters Date Type Specialty Care Team Description 07/10/2023 Office Visit Family Medicine Leni Moyer, [address] [place] [address] 08/10/2023 Office Visit Rheumatology Barndon Lewis MD [address] [facility] [place] [address] Health Maintenance Due Date Last Done Comments [place]-1 Antitrypsin 1963 DTaP,Tdap,and Td Vaccines (2 - Td or Tdap) 10/02/2020 10/02/2010, 10/31/2004 COVID-19 Vaccine (6 - Moderna series) 05/21/2022 03/26/2022, 05/06/2021, 05/06/2021, Additional history exists *BISPHONATE OR OTHER ACCEPTABLE MEDICATION NEEDED FOR OSTEOPOROSIS (REFER TO SMARTSET #1146) 06/28/2022 CKD PHOS USE SMARTSET 74948 04/15/20230 10/2021, 03/12/2021, 07/19/2019, Additional history exists Influenza [...] Additional history exists CKD HGB USE SMARTSET 68327 05/27/202405/27, 05/27/2023, 10/15/2022, Additional history exists O2 ASSESSMENT COMPLETED IN PAST YEAR FOR COPD 06/03/2024 06/03/2023 DXA Scan 05/04/2025 05/04/2023, 03/14, 01/18/2013 Pneumococcal Vaccine: 65+ Years Completed 03/05/2017, 06/28/2015, 11/25/2011, Additional history exists Fecal Occult Blood Test Discontinued 09/23/19, 08/06/2018, 02/21/2004 VITAMIN D LEVEL ONCE IN A LIFETIME-USE SMARTSET# [id number] Completed 10/18/2020, 03/06/2020, 03/26/2018, Additional history exists [...] this encounter Medical Devices Implanted Type Area Last Trimmer Device Identifier Shelf Expiration Date Model / Serial / Lot Lens 19.5 Sn60wf - [id number] - [id number] Implanted:Qty: 1 on 11/21/2016 by Faraz Jeffers MD at [facility] Left: Eye RAMÓN : SURGICAL 05/14/2021 SN60WF.1 95 / [id number] 2 / Lens 19.5 Sn60wf - [id number] - [id number] Implanted:Qty: 1 on 04/22/2019 by Faraz Jeffers MD at OR [facility] Right: Eye RAMÓN : SURGICAL 07/14/2023 SN60WF.195 / [id number] / documented as of this encounter [...] and were consensually agreed upon. Care Teams Analytical Lead Relationship Specialty Start Date End Date Leni Moyer[address] [place] [address] PCP - General Internal Medicine 11/18/17 documented as of this encounter
--- OUTSIDE RECORDS SUMMARY | 2023-09-05 18:42 | External Medical Summary | Summary of Care ---
Author Name Unknown Organization [facility] Address [address] [facility] [place] [address] Phone [phone] Care Team Providers Care Solar Sales Advisor Name Role Phone Leni Moyer Primary Care Provider Reason for Visit * Reason Onset Date Comments Test Results 06/02/2023 Encounter Details Date Type Department Care Team Description 06/02/[address] [phone] Alissa Moran PA-C [address] [place] [address] [place] [address] Test Results Allergies Active Allergy Reactions Severity Noted Date Comments Ciprofloxacin Bleeding High 05/27/2023 And rash Influenza Virus Vac Live Quad High 2020 2 years ago, flown to [facility] Methotrexate 08/19/2013 pneumonitis Other Allergy (See Comments) Rash 012 Insecticides cause breathing problems Penicillins Hives 02/01/2001 Ranitidine Rash 07/14/2001 documented as of this encounter (statuses as of 06/03/2023) Medications Medication Sig Dispensed Refills Start Date End Date Status ONETOUCH ULTRASOFT LANCETS MISC Check BS twice daily. E 11.9 1 Box Dosing Unit 11 12/15/2016 Active Nystatin (NYSTOP) 074348 UNIT/GM powderIndications:Cu taneous candidiasis APPLY TOPICALLY TO AFFECTED AREA 3 TIMES A DAY. SPRINKLE OVER AFFECTED AREA. 15 g 2 12/15/2016 Active Blood Glucose Monitoring Suppl (STinser ULTRA SYSTEM) w/Device KIT Twice daily. Dx E 11.9 1 Kit 0 12/25/2017 Active Glucose Blood (ONETOUCH ULTRA BLUE) STRPIndications:Type 2 diabetes mellitus with hemoglobin A1c goal of less than 7.0% ([facility]) Check BS twice daily E11.9 [...] in 60 to 180 days Given at [facility] 1 Each 1 12/29/2022 Active Vancomycin HCl [...] th eyes, mild stage 04/02/2022 History of [place] (myocardial infarction) Neutropenia 04/02/2022 Last Assessment & [...] Age-related osteoporosis without current pathological fracture 06/08/2020 longterm current use of therapeutic elysia g 03/06/2020 Chronic right-sided heart failure 2019 Major depressive disorder, recurrent epi sode, in partial remission 11/03/2019 Last Assessment & Plan: Managed well with Cymbalta 60 mg daily Gastroesophageal reflux disease without esophagitis 11/03/2019 Last Assessment & Plan: Managed with pantoprazole 40 mg daily Coronary artery disease invo lving [place] coronary artery of [place] heart without angina pectoris 11/03/2019 Last Assessment [...] ICD-10 update of inactive term LOC PRIM [id number] 04/12/2003 04/15/20 17 PURE HYPERCHOLESTEROLEM 12/27/2001 08/03/20 [...] COPD, moderate 12/05/2014 CAD (coronary artery disease), [place] coronary a rtery 02/24/2022 Overview: duplicate documented [...] encounter Miscellaneous Notes * Telephone Encounter - Germaine Navarro LPN - 06/02/2023 3:00 PM EDT Patient and returned call. Informed of message. Verbalized understanding. * Telephone Encounter - Giovany Mendez LPN - 06/02/2023 8:38 AM EDT Provider to address: Alissa Moran PA-C Reason for Call: Test Results Contact: Telephone Call Contact Type: Test Results Outcome: Unable to leave VM due to mail box full Need to Contact pt back. Unable to Leave VM due to Mail box full Total Time including non face to face (minutes): 5 * Telephone Encounter - Giovany Mendez LPN - 06/02/2023 8:28 AM EDT ----- Message from Alissa Moran PA-C sent at 05/29/2023 3:15 PM EDT ----- Please let patient know: Her white blood counts were slightly lower which may be because of everything going on with her. I would recommend we repeat this in 1 week as she continues to improve. Thanks documented in this encounter Plan of Treatment Upcoming Encounters Date Type Specialty Care Team Description 06/03/2023 Office Visit Infectious Disease Ami Addison MD [address] [place] [address] 06/04/2023 Office Visit Family Medicine Alissa Moran PA-C [address] [place] [address] [place] [address] 07/10/2023 Office Visit Family Medicine Leni Moyer DO [address] [place] [address] [place] [address] 08/10/2023 Office Visit Rheumatology Brandon Lewis MD [address] [place] [address] [place] [address] Health Maintenance Due Date Last Done Comments [place]-1 Antitrypsin 1963 DTaP,Tdap,and Td Vaccines (2 - Td or Tdap) 10/02/2020 10/02/2010, 10/31/2004 COVID-19 Vaccine (6 - Moderna series) 05/21/2022 03/26/2022, 05/06/2021, 05/06/2021, Additional history exists *BISPHONATE OR OTHER ACCEPTABLE MEDICATION NEEDED FOR OSTEOPOROSIS (REFER TO SMARTSET #1146) 06/28/2022 CKD PHOS USE SMARTSET 70014 04/15/2023 08/0 10/2021, 03/12/2021, 07/19/2019, Additional history [...] Additional history exists CKD HGB USE SMARTSET 87946 05/27/202405/27, 05/27/2023, 10/15/2022, Additional history exists O2 ASSESSMENT COMPLETED IN PAST YEAR FOR COPD 05/27/2024 05/27/2023 DXA Scan 05/04/2025 05/04/2023, 03/14, 01/18/2013 Pneumococcal Vaccine: 65+ Years Completed 03/05/2017, 06/28/2015, 11/25/2011, Additional history exists Fecal Occult Blood Test Discontinued 09/23/19, 08/06/2018, 02/21/2004 VITAMIN D LEVEL ONCE IN A LIFETIME-USE SMARTSET# 42087 Completed 10/18/2020, 03/06/2020, 03/26/2018, Additional history exists [...] this encounter Medical Devices Implanted Type Area Rn Occupational Device Identifier Shelf Expiration Date Model / Serial / Lot Lens 19.5 Sn60wf - [id number] - [id number] Implanted:Qty: 1 on 11/21/2016 by Faraz Jeffers MD at OR [facility] Left: Eye RAMÓN : SURGICAL 05/14/2021 SN60WF.1 95 / [id number] 2 / Lens 19.5 Sn60wf - [id number] - [id number] Implanted:Qty: 1 on 04/22/2019 by Faraz Jeffers MD at OR [facility] Right: Eye RAMÓN : SURGICAL 07/14/2023 SN60WF.195 / [id number] / documented as of this encounter [...] and were consensually agreed upon. Care Teams Solar Sales Advisor Relationship Specialty Start Date End Date Leni Moyer[address] [place] [address] PCP - General Internal Medicine 11/18/17 documented as of this encounter
--- OUTSIDE RECORDS SUMMARY | 2023-09-05 18:43 | External Medical Summary | Summary of Care ---
Author Name Unknown Organization [facility] Address [address] [facility] [place] [address] Phone [phone] Care Team Providers Care Instructor Flying Name Role Phone Leni Moyer Primary Care Provider [phone] Reason for Visit * Reason Onset Date Comments Advice 05/26/2023 case management 05/26/2023 Encounter Details Date Type Department Care Team Description 05/26/2023 Telephone Care Coordination [address] [place] [address] [facility] [address] [place] [address] Advice; case management Allergies Active Allergy Reactions Severity Noted Date Comments Influenza Virus Vac Live Quad High 2020 2 years ago, flown to [facility] Methotrexate 08/19/2013 pneumonitis Other Allergy (See Comments) Rash 012 Insecticides cause breathing problems Penicillins Hives 02/01/2001 Ranitidine Rash 07/14/2001 documented as of this encounter (statuses as of 05/26/2023) Medications Medication Sig Dispensed Refills Start Date End Date Status ONETOUCH ULTRASOFT LANCETS MISC Check BS twice daily. E 11.9 1 Box Dosing Unit 11 12/15/2016 Active Nystatin (NYSTOP) 932515 UNIT/GM powderIndications:Cu taneous candidiasis APPLY TOPICALLY TO AFFECTED AREA 3 TIMES A DAY. SPRINKLE OVER AFFECTED AREA. 15 g 2 12/15/2016 Active triamcinolone acetonide (ARISTOCORT) 0.1 % creamIndications:Pru ritic condition Apply topically to affected area 2 times a day. To affected area. 60 g 5 07/23/2017 Active Additional Information Patient taking differently:TopicalBID PRN, To affected area., Informant: At Discharge, Reported on 05/14/2023 Blood Glucose Monitoring Suppl (TabbedOut SYSTEM) w/Device KIT Twice daily. Dx E 11.9 1 Kit 0 12/25/2017 Active Glucose Blood (ExpertTOUCH ULTRA BLUE) STRPIndications:Type 2 diabetes mellitus with hemoglobin A1c goal of less than 7.0% ([facility]) Check BS twice daily E11.9 [...] [place] 1 Each 1 12/29/2022 Active Vancomycin HCl [...] MORNING 90 Tablet 3 04/30/2023 4 Active Ciprofloxacin HCl 500 MG Oral Tablet (Cipro) Take 1 Tablet by mouth in the morning and 1 Tablet before bedtime. 0 Active Albuterol Sulfate (2.5 MG/3ML) 0.083% Inhalation Nebulization Solution (Proventil) Inhale 1 Vial via nebulizer. Use as directed, if needed, for shortness of breath or wheezing 0 Active amLODIPine Besylate 10 MG Oral Tablet (Norvasc) TAKE ONE TABLET BY MOUTH EVERY MORNING 100 Tablet 3 05/19/2023 4 Active documented as of this encounter (statuses as of 05/26/2023) Active Problems Problem Noted Date Polyneuropathy associated with underlyin g disease 10/15/2022 Paroxysmal atrial fibrillation 3 History of 2019 novel coronavirus diseas e (COVID-19) 09/18/2022 DNR (do not resuscitate) 09/17/2022 H/O Clostridium difficile infection 08/15 Primary open angle glaucoma (POAG) of froilan th eyes, mild stage 04/02/2022 History of [place] (myocardial infarction) Neutropenia 04/02/2022 Last Assessment & [...] Age-related osteoporosis without current pathological fracture 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 03/06/2020 Chronic right-sided heart failure 2019 Major depressive disorder, recurrent epi sode, in partial remission 11/03/2019 Last Assessment & Plan: Managed well with Cymbalta 60 mg daily Gastroesophageal reflux disease without esophagitis 11/03/2019 Last Assessment & Plan: Managed with pantoprazole 40 mg daily Coronary artery disease invo lving [place] coronary artery of [place] heart without angina pectoris 11/03/2019 Last [...] as of this encounter (statuses as of 05/26/2023) Resolved Problems Problem Noted Date Resolved Date [...] ICD-10 update of inactive term LOC PRIM [id number] 04/12/2003 04/15/20 17 PURE HYPERCHOLESTEROLEM 12/27/2001 08/03/20 [...] COPD, moderate 12/05/2014 CAD (coronary artery disease), [place] coronary a rtery 02/24/2022 Overview: duplicate documented as of this encounter (statuses as of 05/26/2023) Immunizations Name Administration Dates Next Due COVID-19 [...] Encounter - [facility] - 05/26/2023 3:18 PM EDT Images from the original note were not included. Patient reports itching to upper extremities. See photos below. See YOHAN note 05/25/23 for further details. Patient states she is agreeable to come in to the clinic for an appointment, if needed. documented in this encounter Plan of Treatment Upcoming Encounters Date Type Specialty Care Team Description 05/27/2023 Office Visit Family Medicine Alissa Moran, PA-C [address] [place] [address] [place] [address] 06/03/2023 Office Visit Infectious Disease Ami Addison MD [address] [place], [place] [id number] 07/10/2023 Office Visit Family Medicine Leni Moyer DO [address] [place] [address] [place] [address] 08/10/2023 Office Visit Rheumatology Brandon Lewis MD [address] [place] [address] Health Maintenance Due Date Last Done Comments [place]-1 Antitrypsin 1963 DTaP,Tdap,and Td Vaccines (2 - Td or Tdap) 10/02/2020 10/02/2010, 10/31/2004 COVID-19 Vaccine (6 - Moderna series) 05/21/2022 03/26/2022, 05/06/2021, 05/06/2021, Additional history exists *BISPHONATE OR OTHER ACCEPTABLE MEDICATION NEEDED FOR OSTEOPOROSIS (REFER TO SMARTSET #1146) 06/28/2022 CKD PHOS USE SMARTSET 73432 04/15/2023 08/0 10/2021, 03/12/2021, 07/19/2019, Additional history exists Influenza Vaccine (FLU shot) (#1) 2023 06/14/2018, 06/22/2017, 08/12/2016, Additional history exists HbA1c 06/30/2023 12/29/2022, 05/16, 11/22/2021, Additional history exists DIABETES-EYE EXAM 07/03/2023 07/03/2022, , 04/12/2020, Additional history exists CKD HGB USE SMARTSET 75615 10/15/202310/15, 10/15/2022, 09/10/2022, Additional history exists GFR 11/13/2023 05/15/2023, 05/0 09/2022, 12/29/2022, Additional history exists Albumin/Creatinine Ratio 04/08/2024 023, 04/15/2022, 06/12/2021, Additional history exists Depression Screening 04/08/2024 04/08/2023 Diabetic Foot Exam 04/08/2024 04/08/2023, 0 06/10/2022, 06/12/2021, Additional history exists O2 ASSESSMENT COMPLETED IN PAST YEAR FOR COPD 05/15/2024 05/15/2023 DXA Scan 05/04/2025 05/04/2023, 03/14, 01/18/2013 Pneumococcal Vaccine: 65+ Years Completed 03/05/2017, 06/28/2015, 11/25/2011, Additional history exists Fecal Occult Blood Test Discontinued 09/23/19, 08/06/2018, 02/21/2004 VITAMIN D LEVEL ONCE IN A LIFETIME-USE SMARTSET# 98240 Completed 10/18/2020, 03/06/2020, 03/26/2018, Additional history exists [...] this encounter Medical Devices Implanted Type Area Invoicing Specialist Device Identifier Shelf Expiration Date Model / Serial / Lot Lens 19.5 Sn60wf - [id number] - [id number] Implanted:Qty: 1 on 11/21/2016 by Faraz Jeffers MD at OR [facility] Left: Eye RAMÓN : SURGICAL 05/14/2021 SN60WF.1 95 / [id number] 2 / Lens 19.5 Sn60wf - [id number] - [id number] Implanted:Qty: 1 on 04/22/2019 by Faraz Jeffers MD at OR [facility] Right: Eye RAMÓN : SURGICAL 07/14/2023 SN60WF.195 / [id number] / documented as of this encounter [...] and were consensually agreed upon. Care Teams Instructor Flying Relationship Specialty Start Date End Date Leni Moyer[address] [place] [address] PCP - General Internal Medicine 11/18/17 documented as of this encounter
--- OUTSIDE RECORDS SUMMARY | 2023-09-05 18:43 | External Medical Summary | Summary of Care ---
Author Name Unknown Organization [facility] Address [address] [place] [address] Phone [phone] Care Team Providers Care Major Assembly Lineman Name Role Phone Leni Moyer Primary Care Provider [phone] Reason for Visit * Reason Onset Date Comments Advice 05/26/2023 case management 05/26/2023 Encounter Details Date Type Department Care Team Description 05/26/2023 Telephone Care Coordination [address] [place] [address] [facility] [address] [place] [address] Advice; case management Allergies Active Allergy Reactions Severity Noted Date Comments Influenza Virus Vac Live Quad High 2020 2 years ago, flown to [facility] Methotrexate 08/19/2013 pneumonitis Other Allergy (See Comments) Rash 012 Insecticides cause breathing problems Penicillins Hives 02/01/2001 Ranitidine Rash 07/14/2001 documented as of this encounter (statuses as of 05/26/2023) Medications Medication Sig Dispensed Refills Start Date End Date Status ONETOUCH ULTRASOFT LANCETS MISC Check BS twice daily. E 11.9 1 Box Dosing Unit 11 12/15/2016 Active Nystatin (NYSTOP) 584060 UNIT/GM powderIndications:Cu taneous candidiasis APPLY TOPICALLY TO [...] Reported on 05/14/2023 Blood Glucose Monitoring Suppl (LocalEats SYSTEM) w/Device KIT Twice daily. 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 03/06/2020 Chronic right-sided heart failure 2019 Major depressive disorder, recurrent epi sode, in partial remission 11/03/2019 Last Assessment & Plan: Managed well with Cymbalta 60 mg daily Gastroesophageal reflux disease without esophagitis 11/03/2019 Last Assessment & Plan: Managed with pantoprazole 40 mg daily Coronary artery disease invo lving [place] coronary artery of [place] heart without angina pectoris 11/03/2019 Last Assessment [...] ICD-10 update of inactive term LOC PRIM [id number] 04/12/2003 04/15/20 17 PURE HYPERCHOLESTEROLEM 12/27/2001 08/03/20 [...] COPD, moderate 12/05/2014 CAD (coronary artery disease), [place] coronary a rtery 02/24/2022 Overview: duplicate documented [...] Influenza, Split, I IV3, With Preserve, Inj 08/01/2014,06/28/2013,05/25/2012,07/17,10/02/2010,10/05/2009,08/05/20 06,09/17/2004,07/18/2002 07/18/2003 TD - Tetanus/Diptheria (ADULT) 10/31/2004 TDAP [...] Telephone Encounter - Yvonne Cherry RN - 05/26/2023 3:30 PM EDT First, let me say that these pictures look to me like her scratching caused this ecchymosis as she is on Plavix - not that this is causing the itching. So, we need to find out what is making her so itchy. Is she using lotions with alcohol or perfumes in it? Is she using soap with deodorants in them? Is she not drinking enough fluids? Etc. I spoke with Socorro in scheduling. We got Kirsty an appointment for tomorrow morning to be evaluated. Thank you for bringing this to my attention. * Telephone Encounter - Jyoti Carmen - 05/26/2023 3:18 PM EDT Images from [...] Description 05/27/2023 Office Visit Family Medicine Alissa Moran PA-C [address] [place] [address] [place] [address] 06/03/2023 Office Visit Infectious Disease Ami Addison MD [address] [place] [address] 07/10/2023 Office Visit Family Medicine Leni Moyer DO [address] [place] [address] [place] [address] 08/10/2023 Office Visit Rheumatology Brandon Lewis MD [facility] [place] [address] Health Maintenance Due Date Last Done Comments Alpha-1 Antitrypsin 1963 DTaP,Tdap,and Td Vaccines (2 - Td or Tdap) 10/02/2020 10/02/2010, 10/31/2004 COVID-19 Vaccine (6 - Moderna series) 05/21/2022 03/26/2022, 05/06/2021, 05/06/2021, Additional history exists *BISPHONATE OR OTHER ACCEPTABLE MEDICATION NEEDED FOR OSTEOPOROSIS (REFER TO SMARTSET #1146) 06/28/2022 CKD PHOS USE SMARTSET 82513 04/15/2023 08/0 10/2021, 03/12/2021, 07/19/2019, Additional history exists Influenza Vaccine (FLU shot) (#1) 2023 06/14/2018, 06/22/2017, 08/12/2016, Additional history exists HbA1c 06/30/2023 12/29/2022, 05/16, 11/22/2021, Additional history exists DIABETES-EYE EXAM 07/03/2023 07/03/2022, , 04/12/2020, Additional history exists CKD HGB USE SMARTSET 27146 10/15/202310/15, 10/15/2022, 09/10/2022, Additional history exists GFR [...] D LEVEL ONCE IN A LIFETIME-USE SMARTSET# [id number] Completed 10/18/2020, 03/06/2020, 03/26/2018, Additional history exists [...] this encounter Medical Devices Implanted Type Area Paper Pattern Folder Device Identifier Shelf Expiration Date Model / Serial / Lot Lens 19.5 Sn60wf - [id number] - [id number] Implanted:Qty: 1 on 11/21/2016 by Faraz Jeffers MD at OR [facility] Left: Eye RAMÓN : SURGICAL 05/14/2021 SN60WF.1 95 / [id number] 2 / Lens 19.5 Sn60wf - [id number] - [id number] Implanted:Qty: 1 on 04/22/2019 by Faraz Jeffers MD at OR [facility] Right: Eye RAMÓN : SURGICAL 07/14/2023 [id number].[id number] / [id number] / documented as of this encounter [...] and were consensually agreed upon. Care Teams Major Assembly Lineman Relationship Specialty Start Date End Date Leni Moyer, [address] [place] [address] PCP - General Internal Medicine 11/18/17 documented as of this encounter
--- OUTSIDE RECORDS SUMMARY | 2023-09-05 18:43 | External Medical Summary | Summary of Care ---
Author Name Unknown Organization [facility] Address [address] [facility] [place] [address] Phone [phone] Care Team Providers Care Crop Production Advisor Name Role Phone Leni Moyer Primary Care Provider Reason for Visit * Reason Comments Acute Itchy skin Encounter Details Date Type Department Care Team Description 05/27/2023 Office Visit Family Medicine [address] [phone] Alissa Moran PA-C [address] [place] [address] [place] [address] Ecchymosis*; Rash and nonspecific skin eruption; Adverse effect of drug, initial encounter; Bronchitis, complicated Allergies Active Allergy Reactions Severity Noted Date Comments Ciprofloxacin Bleeding High 05/27/2023 And rash Influenza Virus Vac Live Quad High 2020 2 years ago, flown to [facility] Methotrexate 08/19/2013 pneumonitis Other Allergy (See Comments) Rash 012 Insecticides cause breathing problems Penicillins Hives 02/01/2001 Ranitidine Rash 07/14/2001 documented as of this encounter (statuses as of 05/27/2023) Medications Medication Sig Dispensed Refills Start Date End Date Status ONETOUCH ULTRASOFT LANCETS MISC Check BS twice daily. E 11.9 1 Box Dosing Unit 11 12/15/2016 Active Nystatin (NYSTOP) 873459 UNIT/GM powderIndications:C utaneous candidiasis APPLY TOPICALLY TO AFFECTED AREA 3 TIMES A DAY. SPRINKLE OVER AFFECTED AREA. 15 g 2 12/15/2016 Active Blood Glucose Monitoring Suppl (Bid Nerd ULTRA SYSTEM) w/Device KIT Twice daily. Dx E 11.9 1 Kit 0 12/25/2017 Active Glucose Blood (MechanologyTOUCH ULTRA BLUE) STRPIndications:Typ e 2 diabetes mellitus with hemoglobin A1c goal of less than 7.0% ([facility]) Check BS twice daily E11.9 [...] in 60 to [address] [facility] 1 Each 1 12/29/2022 Active [...] 100 Tablet 3 05/19/2023 05/18/20 24 Active Azithromycin 250 MG Oral Tablet (Zithromax)Indicati ons:Bronchitis, complicated Take 2 tabs by mouth on the first day, then 1 tab daily on days two through five 6 Tablet 0 05/27/2023 06/01/20 23 Active Triamcinolone Acetonide 0.1 % External Cream (Aristocort)Indicat ions:Rash and nonspecific skin eruption Apply topically to affected area 2 times a day. To affected area. 80 g 1 05/27/2023 Active triamcinolone acetonide (ARISTOCORT) 0.1 % creamIndications:Pr uritic condition Apply topically to affected area 2 times a day. To affected area. 60 g 5 07/23/2017 05/27/20 Discontinu ed(Medicat ion/Dose Changed) Ciprofloxacin HCl 500 MG Oral Tablet (Cipro) Take 1 Tablet by mouth in the morning and 1 Tablet before bedtime. 0 05/27/20 Discontinu ed(Medicat ion/Dose Changed) documented as of this encounter (statuses as of 05/27/2023) Active Problems Problem Noted Date Polyneuropathy associated with underlyin g disease 10/15/2022 Paroxysmal atrial fibrillation History of 2019 novel coronavirus diseas e (COVID-19) 09/18/2022 DNR (do not resuscitate) 09/17/2022 H/O Clostridium difficile infection 08/15 Primary open angle glaucoma (POAG) of fro[place] th eyes, mild stage 04/02/2022 History of [place] (myocardial infarction) Neutropenia 04/02/2022 Last Assessment & [...] Age-related osteoporosis without current pathological fracture 06/08/2020 [facility] current use of therapeutic elysia g 03/06/2020 Chronic right-sided heart failure 2019 Major depressive disorder, recurrent epi sode, in partial remission 11/03/2019 Last Assessment & Plan: Managed well with Cymbalta 60 mg daily Gastroesophageal reflux disease without esophagitis 11/03/2019 Last Assessment & Plan: Managed with pantoprazole 40 mg daily Coronary artery disease invo lving [place] coronary artery of [place] heart without angina pectoris 11/03/2019 Last Assessment [...] as of this encounter (statuses as of 05/27/2023) Resolved Problems Problem Noted Date Resolved Date [...] ICD-10 update of inactive term LOC PRIM [id number] 04/12/2003 04/15/20 17 PURE HYPERCHOLESTEROLEM 12/27/2001 08/03/20 [...] COPD, moderate 12/05/2014 CAD (coronary artery disease), [place] coronary a rtery 02/24/2022 Overview: duplicate documented as of this encounter (statuses as of 05/27/2023) Immunizations Name Administration Dates Next Due COVID-19 [...] Sign Reading Time Taken Comments Blood Pressure 128/68 05/27/2023 10:29 AM EDT Pulse 104 05/27/2023 10:29 AM EDT Temperature 35.8 C (96.4 F) 05/27/2023 10:29 AM E DT Respiratory Rate - - Oxygen Saturation 97% 05/27/2023 10:29 AM EDT Inhaled Oxygen Concentration - - Weight 58.3 kg (128 lb 8 oz) 05/27/2023 10:29 AM EDT Height - - Body Mass Index 26.86 05/15/2023 3:17 PM EDT documented in this encounter Progress Notes * Alissa Moran PA-C - 05/27/2023 10:37 AM EDT Images from the original note were not included. History of Present Illness Belem Rodriguez is a 77 year old female that presents for Acute (Itchy skin) Nursing Notes: Shavon Manning CMA 05/27/23 1028 Sign at exiting of workspace She is here today for itchy skin. This started a couple days ago. HPI: Belem Rodriguez is a 77 year old female presenting to the office today for itchy skin. She started with severe itching for about 3 days. She has had itching all the time on her back, andher is questioning allergy to medicine. She was on Cipro for sepsis which she finished also3 days ago. She previously sent pics of her rash that are below. Rash is now starting to resolve. Mild eye itching but no oral symptoms. She also notes that she has had a worsening cough, now productive. No fever. Current Outpatient Medications Medication Instructions Acetaminophen (TYLENOL) 325 mg, Oral, PRN Albuterol Sulfate (2.5 MG/3ML) 0.083% Inhalation Nebulization Solution 1 Vial, Nebulizer, Use as directed, if needed, for shortness of breath or wheezing Albuterol Sulfate HFA 108 (90 Base) MCG/ACT Inhalation Aerosol Solution 2 Puffs, Inhalation, Q4H PRN amLODIPine (NORVASC) 10 mg, Oral, Daily(AM) amLODIPine Besylate 10 MG Oral Tablet (Norvasc) TAKE ONE TABLET BY MOUTH EVERY MORNING B-12 1000 MCG Oral Capsule 2000mcg Thursday, Thursday, and Thursday betamethasone dipropionate (DIPROSONE) 0.05 % cream Topical, BID (.AM/PM), To affected area. Blood Glucose Monitoring Suppl (Bid Nerd ULTRA SYSTEM) w/Device KIT Twice daily. Dx E 11.9 Centrum Silver 50+Women Oral Tablet 1 Tablet, Oral, Daily(AM) ciprofloxacin (CIPRO) 500 mg, Oral, BID (.AM/PM) clopidogrel (PLAVIX) 75 mg, Oral, Daily(AM) Culturelle Kids Oral Packet 1 Packet, Oral, BID (.AM/PM) DULoxetine (CYMBALTA) 60 mg, Oral, Daily(Non-Specified) Ferrous Sulfate (FEOSOL) 325 mg, Oral, BREAKFAST Fluticasone Furoate-Vilanterol 200-25 MCG/ACT Inhalation Aerosol Powder Breath Activated (BREO ellipta) 1 Puff, Inhalation, Daily(AM), Rinse mouth after use folic acid 1 mg, Oral, Daily(Non-Specified) Glucose Blood (Bid Nerd ULTRA BLUE) STRP Check BS twice daily E11.9 hydroxychloroquine (PLAQUENIL) 200 mg, Oral, HS Latanoprost 0.005 % Ophthalmic Solution (Xalatan) INSTILL 1 DROP INTO BOTH EYES AT BEDTIME Levalbuterol HCl 1.25 MG/3ML Inhalation Nebulization Solution (Xopenex) via nebulizer every 4 hoursas needed for SOB or cough and wheezing Dx: Asthma J45.30 Magnesium Oxide -Mg Supplement (MAG-OX) 400 mg, Oral, BID (.AM/PM) Menthol-Zinc Oxide 0.44-20.6 % External Ointment (Calmoseptine) 6 %(Oxygen), Topical, PRN, 1 application ext bid Metoprolol Succinate ER 25 MG Oral Tablet Extended Release 24 Hour (toPROL XL) TAKE ONE TABLET BY MOUTH EVERY MORNING montelukast (SINGULAIR) 10 mg, Oral, Daily(AM) Nystatin (NYSTOP) 576539 UNIT/GM powder APPLY TOPICALLY TO AFFECTED AREA 3 TIMES A DAY. SPRINKLE OVER AFFECTED AREA. Ocuvite-Lutein Oral Capsule 1 Capsule, Oral, Daily(AM) ONETOUCH ULTRASOFT LANCETS [facility] Check BS twice daily. E 11.9 Pantoprazole Sodium 40 MG Oral Tablet Delayed Release (Protonix) 1 tablet by mouth daily 30 to 60 minutes before the first meal of the day predniSONE 5 MG Oral Tablet (Deltasone) TAKE ONE TABLET BY MOUTH EVERY DAY Respiratory Therapy Supplies (NEBULIZER/TUBING/MOUTHPIECE) KIT No dose, route, or frequency recorded. rosuvastatin (CRESTOR) 20 mg, Oral, Daily(AM) Solifenacin Succinate 10 MG Oral Tablet (VESIcare) TAKE ONE TABLET BY MOUTH EVERY DAY IN THE MORNING Thiamine HCl 100 MG Oral Tablet (vitamin B-1) TAKE 1/2 TABLET BY MOUTH DAILY. triamcinolone acetonide (ARISTOCORT) 0.1 % cream Topical, BID (.AM/PM), To affected area. vancomycin (VANCOCIN) 125 mg, Oral, Q6H Vitamin D3 2,000 Units, Oral, Daily(AM) Zoster Vac Recomb Adjuvanted 50 MCG/0.5ML Intramuscular Suspension Reconstituted (Shingrix) Inject 0.5 mL into a large muscle now and repeat dose in 60 to 180 days Given at [facility] reviewed by me today. Physical Exam Vitals: 05/27/23 1029 Temp: 35.8 C (96.4 F) Pulse: 104 SpO2: 97% BP: 128/68 Physical exam: General: Well-Developed. No acute distress. HENT: Normocephalic. Atraumatic. Hearing normal. Cardiovascular: RRR. Normal S1/S2 noted. No murmur, rub or gallop appreciated. Pulmonary: No respiratory distress. No accessory muscle use. No adventitious sounds appreciated. RLL with coarse breath sounds and faint wheeze. Neurologic: Alert. Oriented x 3. Appears stated age. CN 2-12 grossly intact. Skin: Warm and dry. Note multiple large, ecchymoses/petechial type rash on the arms and wrists. None on the back. Note resolving ecchymosis of the left knee and left lower leg. Psych: Mood and affect normal. I have reviewed the following results: CBC and BMP Assessment and Plan Ecchymosis Feel that she likely is having a delayed drug reaction, possibly on the verge of SJS or similar. Appears to be resolving, but she is still slightly itchy. Seems very likely related to course of Cipro. Put Cipro on allergy list. - CBC WITH WBC DIFFERENTIAL AND ANEMIA REFLEX WORKUP; Future - ERYTHROCYTE SEDIMENTATION RATE (ESR); Future - CRP (INFLAMMATORY MARKER); Future - COMPREHENSIVE METABOLIC PANEL; Future Rash and nonspecific skin eruption Steroid cream RX. Continue Calamine lotion. Continue Benadryl at bedtime PRN. - Triamcinolone Acetonide 0.1 % External Cream (Aristocort); Apply topically to affected area 2 times a day. To affected area. Adverse effect of drug, initial encounter Bronchitis, complicated Also start abx for suspected early pneumonia vs bronchitis. - Azithromycin 250 MG Oral Tablet (Zithromax); Take 2 tabs by mouth on the first day, then 1 tab daily on days two through five Wrap-Up Check-out note: F/U 1 week with me Time: I spent a total of 20-29 minutes (exact time 27 mins) on the date of service in preparation, delivery, and documentation of the care provided to Belem Rodrgiuez excluding any time spent in the performance of separately billed services. documented in this encounter Nursing Notes * Shavon Manning CMA - 05/27/2023 10:27 AM EDT She is here today for itchy skin. This started a couple days ago. documented in this encounter Plan of Treatment Upcoming Encounters Date Type Specialty Care Team Description 06/03/2023 Office Visit Infectious Disease Ami Addison MD [address] [facility] [place] [id number] 06/04/2023 Office Visit Family Medicine Alissa Moran PA-C [address] [place] [address] [place] [address] 07/10/2023 Office Visit Family Medicine Leni Moyer[address] [place] [id number] 08/10/2023 Office Visit Rheumatology Brandon Lewis MD [address] [place], [place] [address] Pending Results Name Type Priority Associated Diagnoses Date /Time CBC WITH WBC DIFFERENTIAL AND ANEMIA REFLEX WORKUP Lab Routine Ecchymosis 05/27/2023 11:04 AM EDT ERYTHROCYTE SEDIMENTATION RATE (ESR) Lab Routine Ecchymosis 05/27/2023 11:04 AM EDT CRP (INFLAMMATORY MARKER) Lab Routine Ecchymosis 05/27/2023 11:04 AM EDT COMPREHENSIVE METABOLIC PANEL Lab Routine Ecchymosis 05/27/2023 11:04 AM EDT Scheduled Orders Name Type Priority Associated Diagnoses Orde r Schedule CBC WITH WBC DIFFERENTIAL AND ANEMIA REFLEX WORKUP Lab Routine Ecchymosis Expected: 05/27/2023 (Approximate), Expires: 05/27/2024 ERYTHROCYTE SEDIMENTATION RATE (ESR) Lab Routine Ecchymosis Expected: 05/27/2023 (Approximate), Expires: 05/26/2024 CRP (INFLAMMATORY MARKER) Lab Routine Ecchymosis Expected: 05/27/2023 (Approximate), Expires: 05/26/2024 COMPREHENSIVE METABOLIC PANEL Lab Routine Ecchymosis Expected: 05/27/2023 (Approximate), Expires: 05/26/2024 Health Maintenance Due Date Last Done Comments Alpha-1 Antitrypsin 1963 DTaP,Tdap,and Td Vaccines (2 - Td or Tdap) 10/02/2020 10/02/2010, 10/31/2004 COVID-19 Vaccine (6 - Moderna series) 05/21/2022 03/26/2022, 05/06/2021, 05/06/2021, Additional history exists *BISPHONATE OR OTHER ACCEPTABLE MEDICATION NEEDED FOR OSTEOPOROSIS (REFER TO SMARTSET #1146) 06/28/2022 CKD PHOS USE SMARTSET 16239 04/15/2023 08/0 10/2021, 03/12/2021, 07/19/2019, Additional history exists Influenza Vaccine (FLU shot) (#1) 2023 06/14/2018, 06/22/2017, 08/12/2016, Additional history exists HbA1c 06/30/2023 12/29/2022, 05/16, 11/22/2021, Additional history exists DIABETES-EYE EXAM 07/03/2023 07/03/2022, , 04/12/2020, Additional history exists CKD HGB USE SMARTSET 13062 10/15/202310/15, 10/15/2022, 09/10/2022, Additional history exists GFR 11/13/2023 05/15/2023, 05/0 09/2022, 12/29/2022, Additional history exists Albumin/Creatinine Ratio 04/08/2024 023, 04/15/2022, 06/12/2021, Additional history exists Depression Screening 04/08/2024 04/08/2023 Diabetic Foot Exam 04/08/2024 04/08/2023, 0 06/10/2022, 06/12/2021, Additional history exists O2 ASSESSMENT COMPLETED IN PAST YEAR FOR COPD 05/25/2024 05/25/2023 DXA Scan 05/04/2025 05/04/2023, 03/14, 01/18/2013 Pneumococcal Vaccine: 65+ Years Completed 03/05/2017, 06/28/2015, 11/25/2011, Additional history exists Fecal Occult Blood Test Discontinued 09/23/19, 08/06/2018, 02/21/2004 VITAMIN D LEVEL ONCE IN A LIFETIME-USE SMARTSET# [id number] Completed 10/18/2020, 03/06/2020, 03/26/2018, Additional history exists [...] this encounter Medical Devices Implanted Type Area Willow Machine Operator Device Identifier Shelf Expiration Date Model / Serial / Lot Lens 19.5 Sn60wf - [id number] - [id number] Implanted:Qty: 1 on 11/21/2016 by Faraz Jeffers MD at OR [facility] Left: Eye RAMÓN : SURGICAL 05/14/2021 SN60WF.1 95 / [id number] / Lens 19.5 Sn60wf - [id number] - [id number] Implanted:Qty: 1 on 04/22/2019 by Faraz Jeffers MD at OR [facility] Right: Eye RAMÓN : SURGICAL 07/14/2023 SN60WF.195 / [id number] / documented as of this encounter Visit Diagnoses Diagnosis Ecchymosis- Primary Other specified circulatory system disorders Rash and nonspecific skin eruption Rash and other nonspecific skin eruption Adverse effect of drug, initial encounter Bronchitis, complicated Bronchitis, not specified as acute or chronic documented in this encounter Advance Directives Latest [...] and were consensually agreed upon. Care Teams Crop Production Advisor Relationship Specialty Start Date End Date Leni Moyer, [address] [place] [address] PCP - General Internal Medicine 11/18/17 documented as of this encounter
--- OUTSIDE RECORDS SUMMARY | 2023-09-05 18:43 | External Medical Summary | Summary of Care ---
Author Name Unknown Organization [facility] Address [address] [place] [place] [place] [address] Phone [phone] Care Team Providers Care Equine Science Instructor Name Role Phone Leni Moyer Primary Care Provider Encounter Details Date Type Department Care Team Description 05/29/2023 Orders Only Family Medicine [address] [address] Alissa Moran, PA-C [address] [place] [address] [place] [phone] Leukopenia, unspecified type* Allergies Active Allergy Reactions Severity Noted Date Comments Ciprofloxacin Bleeding High 05/27/2023 And rash Influenza Virus Vac Live Quad High 2020 2 years ago, flown to [facility] Methotrexate 08/19/2013 pneumonitis Other Allergy (See Comments) Rash 012 Insecticides cause breathing problems Penicillins Hives 02/01/2001 Ranitidine Rash 07/14/2001 documented as of this encounter (statuses as of 05/29/2023) Medications Medication Sig Dispensed Refills Start Date End Date Status ONETOUCH ULTRASOFT LANCETS MISC Check BS twice daily. E 11.9 1 Box Dosing Unit 11 12/15/2016 Active Nystatin (NYSTOP) 101498 UNIT/GM powderIndications:Cu taneous candidiasis APPLY TOPICALLY TO AFFECTED AREA 3 TIMES A DAY. SPRINKLE OVER AFFECTED AREA. 15 g 2 12/15/2016 Active Blood Glucose Monitoring Suppl (ONETOUCH ULTRA SYSTEM) w/Device KIT Twice daily. Dx E 11.9 1 Kit 0 12/25/2017 Active Glucose Blood (TidePool ULTRA BLUE) STRPIndications:Type 2 diabetes mellitus with [...] in 60 to 180 days Given at [facility] 1 Each 1 12/29/2022 Active Vancomycin HCl [...] MORNING 100 Tablet 3 05/19/2023 4 Active Azithromycin 250 MG Oral Tablet (Zithromax)Indicatio ns:Bronchitis, complicated Take 2 tabs by mouth on the first day, then 1 tab daily on days two through five 6 Tablet 0 05/27/2023 3 Active Triamcinolone Acetonide 0.1 % External Cream (Aristocort)Indicati ons:Rash and nonspecific skin eruption Apply topically to affected area 2 times a day. To affected area. 80 g 1 05/27/2023 Active documented as of this encounter (statuses as of 05/29/2023) Active Problems Problem Noted Date Polyneuropathy associated with underlyin g disease 10/15/2022 Paroxysmal atrial fibrillation 3 History of 2019 novel coronavirus diseas e (COVID-19) 09/18/2022 DNR (do not resuscitate) 09/17/2022 H/O Clostridium difficile infection 08/15 Primary open angle glaucoma (POAG) of fro[place] th eyes, mild stage 04/02/2022 History of [place] (myocardial infarction) Neutropenia 04/02/2022 Last Assessment & [...] Age-related osteoporosis without current pathological fracture 06/08/[facility] use of therapeutic elysia g 03/06/2020 Chronic right-sided heart failure 2019 Major depressive disorder, recurrent epi sode, in partial remission 11/03/2019 Last Assessment & Plan: Managed well with Cymbalta 60 mg daily Gastroesophageal reflux disease without esophagitis 11/03/2019 Last Assessment & Plan: Managed with pantoprazole 40 mg daily Coronary artery disease invo lving [place] coronary artery of [place] heart without angina pectoris 11/03/2019 Last Assessment [...] as of this encounter (statuses as of 05/29/2023) Resolved Problems Problem Noted Date Resolved Date [...] ICD-10 update of inactive term LOC PRIM [id number] 04/12/2003 04/15/20 17 PURE HYPERCHOLESTEROLEM 12/27/2001 08/03/20 [...] COPD, moderate 12/05/2014 CAD (coronary artery disease), [place] coronary a rtery 02/24/2022 Overview: duplicate documented as of this encounter (statuses as of 05/29/2023) Immunizations Name Administration Dates Next Due COVID-19 [...] Infectious Disease Ami Addison MD [address] [place] [address] 06/04/2023 Office Visit Family Medicine Alissa Moran PA-Erwin [address] [place] [address] [place] [phone] 07/10/2023 Office Visit Family Medicine Leni Moyer DO [address] [place] [address] [place] [phone] 08/10/2023 Office Visit Rheumatology Brandon Lewis [facility] [address] [facility] [address] Scheduled Orders Name Type Priority Associated Diagnoses Orde r Schedule CBC WITH WBC DIFFERENTIAL Lab Routine Leukopenia, unspecified type Expected: 05/29/2023 (Approximate), Expires: 05/29/2024 Health Maintenance Due Date Last Done Comments Alpha-1 Antitrypsin 1965 DTaP,Tdap,and Td Vaccines (2 - Td or Tdap) 10/02/2020 10/02/2010, 10/31/2004 COVID-19 Vaccine (6 - Moderna series) 05/21/2022 03/26/2022, 05/06/2021, 05/06/2021, Additional history exists *BISPHONATE OR OTHER ACCEPTABLE MEDICATION NEEDED FOR OSTEOPOROSIS (REFER TO SMARTSET #1146) 06/28/2022 CKD PHOS USE SMARTSET 12465 04/15/2023 080 10/2021, 03/12/2021, 07/19/2019, Additional history exists Influenza Vaccine (FLU shot) (#1) 2023 06/14/2018, 06/22/2017, 08/12/2016, Additional history exists HbA1c 06/30/2023 12/29/2022, 05/16, 11/22/2021, Additional history exists DIABETES-EYE EXAM 07/03/2023 07/03/2022, , 04/12/2020, Additional history exists GFR 11/25/2023 05/27/2023, 090 09/2022, 01/12/2023, Additional history exists Albumin/Creatinine Ratio 04/08/2024 023, 04/15/2022, 06/12/2021, Additional history exists Depression Screening 04/08/2024 04/08/2023 Diabetic Foot Exam 04/08/2024 04/08/2023, 0 06/10/2022, 06/12/2021, Additional history exists CKD HGB USE SMARTSET 96935 05/27/202405/27, 05/27/2023, 10/15/2022, Additional history exists O2 ASSESSMENT COMPLETED IN PAST YEAR FOR COPD 05/27/2024 05/27/2023 DXA Scan 05/04/2025 05/04/2023, 03/14, 01/18/2013 Pneumococcal Vaccine: 65+ Years Completed 03/05/2017, 06/28/2015, 11/25/2011, Additional history exists Fecal Occult Blood Test Discontinued 09/23/19, 08/06/2018, 02/21/2004 VITAMIN D LEVEL ONCE IN A LIFETIME-USE SMARTSET# [id number] Completed 10/18/2020, 03/06/2020, 03/26/2018, Additional history exists [...] this encounter Medical Devices Implanted Type Area Sheepskin Pickler Device Identifier Shelf Expiration Date Model / Serial / Lot Lens 19.5 Sn60wf - [id number] - [id number] Implanted:Qty: 1 on 11/21/2016 by Faraz Jeffers MD at [facility] Left: Eye RAMÓN : SURGICAL 05/14/2021 SN60WF.1 95 / [id number] / Lens 19.5 Sn60wf - [id number] - [id number] Implanted:Qty: 1 on 04/22/2019 by Faraz Jeffers MD at [facility] Right: Eye RAMÓN : SURGICAL 07/14/2023 SN60WF.195 / [id number] / documented as of this encounter Visit Diagnoses Diagnosis Leukopenia, unspecified type- Primary documented in this encounter Advance Directives [...] and were consensually agreed upon. Care Teams Equine Science Instructor Relationship Specialty Start Date End Date Leni Moyer[address] [place] [phone] PCP - General Internal Medicine 11/18/17 documented as of this encounter
--- OUTSIDE RECORDS SUMMARY | 2023-09-05 18:43 | External Medical Summary ---
Author Name Unknown Address Unknown Organization [id number]:[facility] [place] [address] [facility] [address] Laboratory Report Ordering Provider Test Date Status RICHELLE ROMERO 05/27/2023 11:04:28 Final Observation Date Value Abnormality Reference (Units ) Status SYNC LEUKOCYTES IN BLOOD BY AUTOMATED COUNT 05/27/2023 11:04:28 2.80 Below low normal 4.00-10.80 (K/uL) Final Segs 05/27/2023 11:04:28 3.8 Below low normal 40.0-75.0 (%) Final Lymphs % 05/27/2023 11:04:28 81.4 Above high normal 18.0-42.0 (%) Final Monos 05/27/2023 11:04:28 12.9 Above high normal 1.0-11.0 (%) Final Eosinophils 05/27/2023 11:04:28 0.4 0.0-6.0 (%) Final Basos 05/27/2023 11:04:28 1.1 0.0-2.0 (%) Final Immature Granulocyte, Percent 05/27/2023 11:04:28 0.4 0.0-2.0 (%) Final Absolute Segs 05/27/2023 11:04:28 0.11 Below low normal 1.80-7.70 (K/uL) Final Lymphs, absolute 05/27/2023 11:04:28 2.28 1.00-4.80 (K/ul) Final Monos, Abs 05/27/2023 11:04:28 0.36 0.00-1.10 (K/uL) Final Eos, Abs 05/27/2023 11:04:28 0.01 0.00-0.70 (K/uL) Final Basos, Abs 05/27/2023 11:04:28 0.03 0.00-0.20 (K/uL) Final Immature Granulocytes, Number 05/27/2023 11:04:28 0.01 0.00-0.20 (K/uL) Final Performing Location [facility] [address] [facility] [address]
--- OUTSIDE RECORDS SUMMARY | 2023-09-05 18:43 | External Medical Summary | Summary of Care ---
Author Name Unknown Organization [facility] Address [address] [facility] [address] Phone [phone] Care Team Providers Care Equipment Installation Professional Name Role Phone Leni Moyer DO Primary Care Provider Reason for Visit * Reason Comments Medication Refill Encounter Details Date Type Department Care Team Description 06/01/2023 Refill Family Medicine [address] [address] Leni Moyer DO [address] [place] [address] [place] [phone] Allergies Active Allergy Reactions Severity Noted Date Comments Ciprofloxacin Bleeding High 05/27/2023 And rash Influenza Virus Vac Live Quad High 2020 2 years ago, flown to [facility] Methotrexate 08/19/2013 pneumonitis Other Allergy (See Comments) Rash 012 Insecticides cause breathing problems Penicillins Hives 02/01/2001 Ranitidine Rash 07/14/2001 documented as of this encounter (statuses as of 06/02/2023) Medications Medication Sig Dispensed Refills Start Date End Date Status ZOGOtennisTOUCH ULTRASOFT LANCETS MISC Check BS twice daily. E 11.9 1 Box Dosing Unit 11 12/15/2016 Active Nystatin (NYSTOP) 097716 UNIT/GM powderIndications:Cu taneous candidiasis APPLY TOPICALLY TO AFFECTED AREA 3 TIMES A DAY. SPRINKLE OVER AFFECTED AREA. 15 g 2 12/15/2016 Active Blood Glucose Monitoring Suppl (ONETOUCH ULTRA SYSTEM) w/Device KIT Twice daily. Dx E 11.9 1 Kit 0 12/25/2017 Active Glucose Blood (Weifang Pharmaceutical FactoryUCH ULTRA BLUE) STRPIndications:Type 2 diabetes mellitus with hemoglobin A1c goal of less than 7.0% ([facility]) Check BS twice daily E11.9 100 [...] in 60 to 180 days Given at [facility] 1 Each 1 12/29/2022 Active Vancomycin [...] th eyes, mild stage 04/02/2022 History of [place] (myocardial infarction) Neutropenia 04/02/2022 Last Assessment & [...] Age-related osteoporosis without current pathological fracture 06/08/2020 [facility] current use of therapeutic elysia g 03/06/2020 Chronic right-sided heart failure 2019 Major depressive disorder, recurrent epi sode, in partial remission 11/03/2019 Last Assessment & Plan: Managed well with Cymbalta 60 mg daily Gastroesophageal reflux disease without esophagitis 11/03/2019 Last Assessment & Plan: Managed with pantoprazole 40 mg daily Coronary artery disease invo lving [place] coronary artery of [place] heart without angina pectoris 11/03/2019 Last Assessment [...] ICD-10 update of inactive term LOC PRIM [id number] 04/12/2003 04/15/20 17 PURE HYPERCHOLESTEROLEM 12/27/2001 08/03/20 [...] COPD, moderate 12/05/2014 CAD (coronary artery disease), [place] coronary a rtery 02/24/2022 Overview: duplicate documented [...] Miscellaneous Notes * Telephone Encounter - Liv Stevens [facility] - 06/02/2023 10:01 AM EDTRefused Prescriptions: Disp Refills Clopidogrel Bisulfate 75 MG Oral Tablet (p*100 Ta*3 Sig: TAKE 1TABLET BY MOUTH IN THE MORNINGRefused By: LIV STEVENS for Refusal: Too soon documented in this encounter Plan of Treatment Upcoming Encounters Date Type Specialty Care Team Description 06/03/2023 Office Visit Infectious Disease Ami Addison MD [address] [place], [place] [phone] 06/04/2023 Office Visit Family Medicine Alissa Moran PA-C [address] [place] [address] [place] [address] 07/10/2023 Office Visit Family Medicine Leni Moyer DO [address] [place] [address] [place] [phone] 08/10/2023 Office Visit Rheumatology Brandon Lewis MD [address] [place] [address] Health Maintenance Due Date Last Done Comments Alpha-1 Antitrypsin 1965 DTaP,Tdap,and Td Vaccines (2 - Td or Tdap) 10/02/2020 10/02/2010, 10/31/2004 COVID-19 Vaccine (6 - Moderna series) 05/21/2022 03/26/2022, 05/06/2021, 05/06/2021, Additional history exists *BISPHONATE OR OTHER ACCEPTABLE MEDICATION NEEDED FOR OSTEOPOROSIS (REFER TO SMARTSET #1146) 06/28/2022 CKD PHOS USE SMARTSET 83522 04/15/2023 08/0 10/2021, 03/12/2021, 07/19/2019, Additional history [...] Additional history exists CKD HGB USE SMARTSET 70015 05/27/202405/27, 05/27/2023, 10/15/2022, Additional history exists O2 ASSESSMENT COMPLETED IN PAST YEAR FOR COPD 05/27/2024 05/27/2023 DXA Scan 05/04/2025 05/04/2023, 03/14, 01/18/2013 Pneumococcal Vaccine: 65+ Years Completed 03/05/2017, 06/28/2015, 11/25/2011, Additional history exists Fecal Occult Blood Test Discontinued 09/23/19, 08/06/2018, 02/21/2004 VITAMIN D LEVEL ONCE IN A LIFETIME-USE SMARTSET# 39704 Completed 10/18/2020, 03/06/2020, 03/26/2018, Additional history exists [...] this encounter Medical Devices Implanted Type Area Motor Coach Chauffeur Device Identifier Shelf Expiration Date Model / Serial / Lot Lens 19.5 Sn60wf - [id number] - [id number] Implanted:Qty: 1 on 11/21/2016 by Faraz Jeffers MD at [facility] Left: Eye RAMÓN : SURGICAL 05/14/2021 SN60WF.1 95 / [id number] / Lens 19.5 Sn60wf - [id number] - [id number] Implanted:Qty: 1 on 04/22/2019 by Faraz Jeffers MD at OR [facility] Right: Eye RAMÓN : SURGICAL 07/14/2023 SN60WF.195 / [id number] / documented as of this encounter [...] and were consensually agreed upon. Care Teams Equipment Installation Professional Relationship Specialty Start Date End Date Leni Moyer[address] [place] [phone] PCP - General Internal Medicine 11/18/17 documented as of this encounter
--- OUTSIDE RECORDS SUMMARY | 2023-09-05 18:43 | External Medical Summary ---
Author Name Unknown Address Unknown Organization K01:[facility] - [address] [place] [address] Laboratory Report Ordering Provider Test Date Status RICHELLE ROMERO 05/27/2023 11:04:28 Final Observation Date Value Abnormality Reference (Units ) Status CRP, low-sensitivity 05/27/2023 11:04:28 16 Above high normal <=5 (mg/L) Final Performing Location LABORATORY [facility] - [address] [place] [address]
--- OUTSIDE RECORDS SUMMARY | 2023-09-05 18:43 | External Medical Summary ---
Author Name Unknown Address Unknown Organization K01:[facility] [place] [address] [facility] [place] [address] Laboratory Report Ordering Provider Test Date Status RICHELLE ROMERO 05/27/2023 11:04:28 Final Observation Date Value Abnormality Reference (Units ) Status BUN 05/27/2023 11:04:28 11 6-20 (mg/dL) Final Creatinine 05/27/2023 11:04:28 1.1 Above high normal 0.5-1.0 (mg/dL) Final Glomerular filtration rate/1.73 sq M.predicted [Volume Rate/Area] in Serum, Plasma or Blood by Creatinine-based formula (CKD-EPI) 05/27/2023 11:04:28 54 Below low normal >=60 (mL/min) Final eGFR is calculated based on the CKD-EPI 2020 equation SODIUM 05/27/2023 11:04:28 135 135-146 (m mol/L) Final Potassium 05/27/2023 11:04:28 4.1 3.5-5.1 (m mol/L) Final Cl 05/27/2023 11:04:28 96 Below low normal 98- 107 (mmol/L) Final CO2 05/27/2023 11:04:28 24 22-32 (mmo l/L) Final Anion gap 05/27/2023 11:04:28 15 7-15 (mmol /L) Final Glucose 05/27/2023 11:04:28 194 Above high normal 70 -120 (mg/dL) Final Albumin 05/27/2023 11:04:28 4.0 3.8-5.0 (g /dL) Final AST (Aspartate aminotransferase) 05/27/2023 11:04:28 61 Above high normal 10-35 (U/L) Final Alk Phos 05/27/2023 11:04:28 93 35-130 (U/ L) Final Bilirubin, Total 05/27/2023 11:04:28 0.3 <=1 .2 (mg/dL) Final Calcium 05/27/2023 11:04:28 9.5 8.4-10.2 ( mg/dL) Final Protein 05/27/2023 11:04:28 6.8 6.0-8.3 (g /dL) Final ALT (Alanine aminotransferase) 05/27/2023 11:04:28 41 Above high normal 10-35 (U/L) Final Performing Location [facility] - [address] [facility] [address]
--- OUTSIDE RECORDS SUMMARY | 2023-09-05 18:43 | External Medical Summary ---
Author Name Unknown Address Unknown Organization K01:[facility] [address] [facility] [place] [address] Laboratory Report Ordering Provider Test Date Status RICHELLE ROMERO 05/27/2023 11:04:28 Final Observation Date Value Abnormality Reference (Units ) Status WBC, Total 05/27/2023 11:04:28 2.80 Below low normal 4. 00-10.80 (K/uL) Final RBC 05/27/2023 11:04:28 4.72 3.85-5.15 (M/uL) Final Hemoglobin 05/27/2023 11:04:28 13.3 12.0-15.3 (g/dL) Final Anemia reflex testing trigge rs on a HGB < 12.0 for Females and HGB < 13.0 for Males in accordance with the WHO Anemia Guidelines
Anemia reflex testing triggers on a HGB < 12.0 for Females and HGB < 13.0 for Males in accordance with the WHO Anemia Guidelines HCT 05/27/2023 11:04:28 40.9 36.0-45.2 (%) Final MCV 05/27/2023 11:04:28 86.7 81.5-97.5 (fL) Final MCH 05/27/2023 11:04:28 28.2 27.0-34.0 (pg) Final MCHC 05/27/2023 11:04:28 32.5 32.0-36.0 (g/dL) Final RDW 05/27/2023 11:04:28 17.3 11.5-15.5 (%) Final Platelets 05/27/2023 11:04:28 239 140-400 (K /uL) Final MPV 05/27/2023 11:04:28 8.7 6.6-11.1 ( fL) Final Nucleated erythrocytes/100 leukocytes [Ratio] in Blood by Automated count 05/27/2023 11:04:28 0 <=0 (/100 WBCs) Fi [facility] Performing Location [facility] [place] [address] [facility] [address]
--- OUTSIDE RECORDS SUMMARY | 2023-09-05 18:43 | External Medical Summary | Summary of Care ---
Author Name Unknown Organization [facility] Address [address] [facility] [address] Phone [phone] Care Team Providers Care Drain Technician Name Role Phone Leni Moyer Primary Care Provider Reason for Visit * Reason Onset Date Comments Test Results 05/29/2023 Encounter Details Date Type Department Care Team Description 05/29/[address] [address] Keily Reese MD [address] [place] [address] [place] [address] Test Results Allergies Active [...] Dosing Unit 11 12/15/2016 Active Nystatin (NYSTOP) 128309 UNIT/GM powderIndications:Cu taneous candidiasis APPLY TOPICALLY TO AFFECTED AREA 3 TIMES A DAY. SPRINKLE OVER AFFECTED AREA. 15 g 2 12/15/2016 Active Blood Glucose Monitoring Suppl ([employer] ULTRA SYSTEM) w/Device KIT Twice daily. 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 03/06/2020 Chronic right-sided heart failure 2019 Major depressive disorder, recurrent epi sode, in partial remission 11/03/2019 Last Assessment & Plan: Managed well with Cymbalta 60 mg daily Gastroesophageal reflux disease without esophagitis 11/03/2019 Last Assessment & Plan: Managed with pantoprazole 40 mg daily Coronary artery disease invo lving [place] coronary artery of [place] heart without angina pectoris 11/03/2019 Last Assessment [...] ICD-10 update of inactive term LOC PRIM [id number] 04/12/2003 04/15/20 17 PURE HYPERCHOLESTEROLEM 12/27/2001 08/03/20 [...] COPD, moderate 12/05/2014 CAD (coronary artery disease), [place] coronary a rtery 02/24/2022 Overview: duplicate documented [...] encounter Miscellaneous Notes * Telephone Encounter - Keily Reese MD [...] Infectious Disease Ami Addison MD [address] [place] [address] 06/04/2023 Office Visit Family Medicine Alissa Moran PA-Erwin [address] [place] [address] [place] [address] 07/10/2023 Office Visit Family Medicine Leni Moyer DO [address] [place] [address] [place] [phone] 08/10/2023 Office Visit Rheumatology Brandon Lewis MD [address] [place], [place] [phone] Health Maintenance Due Date Last Done Comments Alpha-1 Antitrypsin 1963 DTaP,Tdap,and Td Vaccines (2 - Td or Tdap) 10/02/2020 10/02/2010, 10/31/2004 COVID-19 Vaccine (6 - Moderna series) 05/21/2022 03/26/2022, 05/06/2021, 05/06/2021, Additional history exists *BISPHONATE OR OTHER ACCEPTABLE MEDICATION NEEDED FOR OSTEOPOROSIS (REFER TO SMARTSET #1146) 06/28/2022 CKD PHOS USE SMARTSET 69199 04/15/2023 08/0 10/2021, 03/12/2021, 07/19/2019, Additional history [...] Additional history exists CKD HGB USE SMARTSET 51710 05/27/202405/27, 05/27/2023, 10/15/2022, Additional history exists O2 ASSESSMENT COMPLETED IN PAST YEAR FOR COPD 05/27/2024 05/27/2023 DXA Scan 05/04/2025 05/04/2023, 03/14, 01/18/2013 Pneumococcal Vaccine: 65+ Years Completed 03/05/2017, 06/28/2015, 11/25/2011, Additional history exists Fecal Occult Blood Test Discontinued 09/23/19, 08/06/2018, 02/21/2004 VITAMIN D LEVEL ONCE IN A LIFETIME-USE SMARTSET# 90221 Completed 10/18/2020, 03/06/2020, 03/26/2018, Additional history exists [...] this encounter Medical Devices Implanted Type Area Mines Inspector Device Identifier Shelf Expiration Date Model / Serial / Lot Lens 19.5 Sn60w - [id number] - [id number] Implanted:Qty: 1 on 11/21/2016 by Faraz Jeffers MD at OR [facility] Left: Eye RAMÓN : SURGICAL 05/14/2021 SN60WF.1 95 / [id number] / Lens 19.5 Sn60wf - [id number] - [id number] Implanted:Qty: 1 on 04/22/2019 by Faraz Jeffers MD at OR [facility] Right: Eye RAMÓN : SURGICAL 07/14/2023 SN60WF.195 / [id number] / documented as of this encounter [...] and were consensually agreed upon. Care Teams Drain Technician Relationship Specialty Start Date End Date Leni Moyer[address] [place] [phone] PCP - General Internal Medicine 11/18/17 documented as of this encounter
--- OUTSIDE RECORDS SUMMARY | 2023-09-05 18:43 | External Medical Summary | Summary of Care ---
Author Name Unknown Organization [facility] Address [address] [address] Phone [phone] Care Team Providers Care Rough [place] Tender Name Role Phone Leni Moyer Primary Care Provider [phone] Reason for Visit * Reason Comments Outpatient Testing Encounter Details Date Type Department Care Team Description 05/27/2023 Laboratory Laboratory [address] [place] [id number] [place] [address] Serum potassium elevated; Ecchymosis Allergies Active Allergy Reactions Severity Noted Date Comments Ciprofloxacin Bleeding High 05/27/2023 And rash Influenza Virus Vac Live Quad High 2020 2 years ago, flown to [facility] Methotrexate 08/19/2013 pneumonitis Other Allergy (See Comments) Rash 012 Insecticides cause breathing problems Penicillins Hives 02/01/2001 Ranitidine Rash 07/14/2001 documented as of this encounter (statuses as of 05/27/2023) Medications Medication Sig Dispensed Refills Start Date End Date Status WaremakersTOUCH ULTRASOFT LANCETS MISC Check BS twice daily. E 11.9 1 Box Dosing Unit 11 12/15/2016 Active Nystatin (NYSTOP) 058572 UNIT/GM powderIndications:Cu taneous candidiasis APPLY TOPICALLY TO AFFECTED AREA 3 TIMES A DAY. SPRINKLE OVER AFFECTED AREA. 15 g 2 12/15/2016 Active Blood Glucose Monitoring Suppl ([employer] ULTRA SYSTEM) w/Device KIT Twice daily. Dx E 11.9 1 Kit 0 12/25/2017 Active Glucose Blood (WHOOPUCH ULTRA BLUE) STRPIndications:Type 2 diabetes mellitus with hemoglobin A1c goal of less than 7.0% ([facility]) Check BS twice daily E11.9 [...] in 60 to 180 days Given at [facility] 1 Each 1 12/29/2022 Active Vancomycin [...] th eyes, mild stage 04/02/2022 History of ND (myocardial infarction) Neutropenia 04/02/2022 Last Assessment & [...] mg daily Coronary artery disease invo lving [place] coronary artery of [place] heart without angina pectoris 11/03/2019 Last Assessment [...] ICD-10 update of inactive term LOC PRIM OOOOPRUP-I-LNP 04/12/2003 04/15/20 17 PURE HYPERCHOLESTEROLEM 12/27/2001 08/03/20 [...] COPD, moderate 12/05/2014 CAD (coronary artery disease), [place] coronary a rtery 02/24/2022 Overview: duplicate documented [...] Infectious Disease Ami Addison MD [address] [place] [address] 06/04/2023 Office Visit Family Medicine Alissa Moran PA-C [address] [place] [address] [place] [address] 07/10/2023 Office Visit Family Medicine Leni Moyer DO [address] [place] [address] [place] [address] 08/10/2023 Office Visit Rheumatology Brandon Lewis MD [address] [facility] [place] [address] Pending Results Name Type Priority Associated Diagnoses Date /Time CBC WITH WBC DIFFERENTIAL AND ANEMIA REFLEX WORKUP Lab Routine Ecchymosis 05/27/2023 11:04 AM EDT ERYTHROCYTE SEDIMENTATION RATE (ESR) Lab Routine Ecchymosis 05/27/2023 11:04 AM EDT CRP (INFLAMMATORY MARKER) Lab Routine Ecchymosis 05/27/2023 11:04 AM EDT COMPREHENSIVE METABOLIC PANEL Lab Routine Ecchymosis 05/27/2023 11:04 AM EDT ANEMIA CBC Lab Routine Ecchymosis 05/27/2023 11:04 AM EDT DIFFERENTIAL, AUTOMATED Lab Routine Ecchymosis 05/27/2023 11:04 AM EDT ANEMIA REFLEX CHEMISTRY HOLD Lab Routine Ecchymosis 05/27/2023 11:04 AM EDT Health Maintenance Due Date Last Done Comments Alpha-1 Antitrypsin 1965 DTaP,Tdap,and Td Vaccines (2 - Td or Tdap) 10/02/2020 10/02/2010, 10/31/2004 COVID-19 Vaccine (6 - Moderna series) 05/21/2022 03/26/2022, 05/06/2021, 05/06/2021, Additional history exists *BISPHONATE OR OTHER ACCEPTABLE MEDICATION NEEDED FOR OSTEOPOROSIS (REFER TO SMARTSET #1146) 06/28/2022 CKD PHOS USE SMARTSET 57176 04/15/2023 08/0 10/2021, 03/12/2021, 07/19/2019, Additional history exists Influenza Vaccine (FLU shot) (#1) 2023 06/14/2018, 06/22/2017, 08/12/2016, Additional history exists HbA1c 06/30/2023 12/29/2022, 05/16, 11/22/2021, Additional history exists DIABETES-EYE EXAM 07/03/2023 07/03/2022, , 04/12/2020, Additional history exists CKD HGB USE SMARTSET 01258 10/15/202310/15, 10/15/2022, 09/10/2022, Additional history exists GFR [...] D LEVEL ONCE IN A LIFETIME-USE SMARTSET# [id number] Completed 10/18/2020, 03/06/2020, 03/26/2018, Additional history exists [...] encounter Medical Devices Implanted Type Area Rn Private Duty Device Identifier Shelf Expiration Date Model / Serial / Lot Lens 19.5 Sn60wf - [id number] - [id number] Implanted:Qty: 1 on 11/21/2016 by Faraz Jeffers MD at OR [facility] Left: Eye RAMÓN : SURGICAL 05/14/2021 SN60WF.1 95 / [id number] / Lens 19.5 Sn60wf - [id number] - [id number] Implanted:Qty: 1 on 04/22/2019 by Faraz Jeffers MD at OR [facility] Right: Eye RAMÓN : SURGICAL 07/14/2023 SN60WF.195 / [id number] / documented as of this encounter Visit Diagnoses Diagnosis Serum potassium elevated Hyperpotassemia Ecchymosis Other specified circulatory system disorders documented in this encounter Advance Directives Latest [...] and were consensually agreed upon. Care Teams Rough [place] Tender Relationship Specialty Start Date End Date Leni Moyer, [address] [place] [address] PCP - General Internal Medicine 11/18/17 documented as of this encounter
--- OUTSIDE RECORDS SUMMARY | 2023-09-05 18:43 | External Medical Summary | Summary of Care ---
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); Coronary artery disease involving [place] coronary artery of [place] heart without angina pectoris; Rheumatoid arthritis involving multiple sites with positive rheumatoid factor (HCC); Essential hypertension with goal blood pressure less than 140/90; Chronic right-sided heart failure (HCC) Allergies Active Allergy Reactions Severity Noted Date Comments Influenza Virus Vac Live Quad High 2020 2 years ago, [facility] [place] [facility] Methotrexate 08/19/2013 pneumonitis Other Allergy (See Comments) Rash 012 Insecticides cause breathing problems Penicillins Hives 02/01/2001 Ranitidine Rash 07/14/2001 documented as of this encounter (statuses as of 05/26/2023) Medications Medication Sig Dispensed Refills Start Date End Date Status ONETOUCH ULTRASOFT LANCETS MISC Check BS twice daily. E 11.9 1 Box Dosing Unit 11 12/15/2016 Active Nystatin (NYSTOP) 513036 UNIT/GM powderIndications:Cu taneous candidiasis APPLY TOPICALLY TO [...] Reported on 05/14/2023 Blood Glucose Monitoring Suppl ([employer] ULTRA SYSTEM) w/Device KIT Twice daily. 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 current use of therapeutic elysia g 03/06/2020 Chronic right-sided heart failure 2019 Major depressive disorder, recurrent epi sode, in partial remission 11/03/2019 Last Assessment & Plan: Managed well with Cymbalta 60 mg daily Gastroesophageal reflux disease without esophagitis 11/03/2019 Last Assessment & Plan: Managed with pantoprazole 40 mg daily Coronary artery disease invo lving [place] coronary artery of [place] heart without angina pectoris 11/03/2019 Last Assessment [...] ICD-10 update of inactive term LOC PRIM [id number] 04/12/2003 04/15/20 17 PURE HYPERCHOLESTEROLEM 12/27/2001 08/03/20 [...] COPD, moderate 12/05/2014 CAD (coronary artery disease), [place] coronary a rtery 02/24/2022 Overview: duplicate documented [...] Sign Reading Time Taken Comments Blood Pressure 122/70 05/25/2023 1:30 PM EDT Pulse 80 05/25/2023 1:30 PM EDT Temperature 36.6 C (97.9 F) 05/25/2023 1:30 PM ED T Respiratory Rate 18 05/25/2023 1:30 PM EDT Oxygen Saturation 94% 05/25/2023 1:30 PM EDT Inhaled Oxygen Concentration - - Weight - - Height - - Body Mass Index - - documented in this encounter Progress Notes * Angelia Da [place], [facility] Injection Molding Machine Setter - 05/25/2023 1:04 PM EDT Images from the original note were not included. [facility] Injection Molding Machine Setter Telephone Visit Date: 05/25/2023 Time: 12:30 PM Name: Belem Rodriguez : 1945 Source of Information: Patient and , [place] COVID-19 screening completed: Yes Vitals: Vital signs completed: Yes, vital signs within normal range. BP 122/70 (BP Site: Left Arm, BP Position: Sitting, BP Cuff Size: Pediatric) | Pulse 80 | Temp 36.6C (97.9 F) | Resp 18 | SpO2 94% Condition Changes: Changes in health or social status since last visit: [facility] for med review, home safety assessment,UTI prevention education, education on use/cleaning of nebulizer/inhalers Provided the following education to patient - UTI prevention: drink plenty of water, avoid sugary drinks if possible. Always "wipe front to back". Especially considering c .diff infection - do not want bacteria from stool to enter urinary tract.Change incontinence products as soon as you notice they are soiled. If possible, try to sleep in a gown/long shirt without undergarments to allow airflow to the area. Bacteria thrive, in warm, moist,dark places. Place a pad/towel under your bottom if needed. Consider low sugar yogurt along with probiotic. Be mindful of pain/burning during urination, urinary frequency, or foul odor - call PCP office if sx occur. Use and cleaning/maintenance of nebulizer/inhalers: patient states she does not use her nebulizer or rescue inhaler. Uses breo daily. Advised patient to use meds if she develops cough, chest congestion, SOB. Advised to wash nebulizer tubing with warm soapy water, rinse well and allow to air dry. Canister can be removed from inhaler and cleaned the same way. Patient verbalized understanding of above education. The patient has new concerns since last visit: Yes, c/o itching to BLE. Observed skin to appear bruised with some small dots present. Unsure if rash is present or not d/t bruising. Patient denies anymed or diet change. States she has been using the same laundry soap for years. Hasn't changed personal care products. Both and caregiver deny itching/irritation. Please see photos. Photo obtained and scanned to medical record with patient consent. Progress towards goals since last visit: continues living independently with assistance of and waiver caregivers. Medications: Medication review completed? Yes, gaps identified and escalated to nurse/provider: Mirtizepine 15mgq hs - not on meds list. Rx label reads ordered 02/17/[address] Moyer Not using inhalers - states no need Cipro done last Thurs Stopped Mg and K 2 weeks ago. States PCP advised levels were too high. Does the patient have barriers to medication adherence? No. Symptoms Surveys and Evaluations: Last flowsheet values for [facility]: Age 65+: 1 (05/26/2023 3:00 PM) Diagnosis (3 or more co-existing): 1 (05/26/2023 3:00 PM) Prior history of falls within 3 months: 1 (05/26/2023 3:00 PM) Incontinence: 1 (05/26/2023 3:00 PM) Visual impairment: 1 (05/26/2023 3:00 PM) Impaired functional mobility: 1 (05/26/2023 3:00 PM) Environmental hazards: 1 (05/26/2023 3:00 PM) Poly Pharmacy (4 or more prescriptions - any type): 1 (05/26/2023 3:00 PM) Pain affecting level of function: 0 (05/26/2023 3:00 PM) Cognitive impairment: 0 (05/26/2023 3:00 PM) Score - a score of 4 or more is considered at risk for fallin (05/26/2023 3:00 PM) Home Safety Overall assessment: The patient has concerns related to housing: No Exterior to the home: Able to enter and exit the home safely Yes The steps are even and in good repair: No - has ramp to enter, however ground is uneven where patient would enter/exit vehicle. attempted to create a level surface with rubber tile. A wheelchair ramp to access the home is needed: No - has ramp to enter home - in good repair. Has transition ramp from porch to inside home, which is quite steep - concern for fall hazard Snow/ice removal assistance available: Yes Sidewalks are in good repair: No - uneven surface of grass/gravel at base of ramp Adequate lighting: Yes Railings are on outdoor stairs: Yes Interior of the home: If durable medical equipment is used, halls and doorways easy to navigate: No - walkways in the home are narrow There are trip hazards in the home: Yes - many cats living in the home. Items on floor creating narrow walkways/trip hazard. Transition ramps available: Yes - from porch to inside home. May benefit from ramp from front room to living area as they are on separate levels. There are working smoke detectors/carbon monoxide detectors: No There are signs of rodent/insect infestation: No obvious signs of infestation. The house is heated by: oil The heat system works (adequately heats the entire house): Yes Able to open doors without difficulty: Yes The doorways have levered knobs: No The entry and exit doorways close correctly and lock: Yes Lighting is adequate: No - light is dim in entry way to living area. Patient spends most of her time in the living room, which is well lit. Air quality concern that affects a health condition Needs air conditioner or Air purifier: No Secure railing in stairways in the home: Yes Bathroom: Grab bars are needed: Yes The patient reports needing help getting on and off the toilet: No Needs help bathing: Yes Has a walk in shower: No Bedroom: There is a medical alert or phone near the bed: Yes The walkway between the bedroom and bathroom is well lit: Yes Kitchen/Bathroom Able to turn water on and off: Yes (Regular knobs or levered knobs) Yes Plan: Notified Provider/Model Maker Apprentice of Questions/Concerns: areas to BLE, mirtizapine not on med list Follow Up: Patient encouraged to call the intake phone number for all urgent but not emergent issues. Scheduled to follow up with patient in as needed. [facility] Injection Molding Machine Setter 05/25/2023 12:30 PM documented in this encounter Plan of Treatment Upcoming Encounters Date Type Specialty Care Team Description 05/27/2023 Office Visit Family Medicine Alissa Moran PA-C [address] [place] [address] [place] [address] 06/03/2023 Office Visit Infectious Disease Ami Addison MD [address] [place], [place] [id number] 07/10/2023 Office Visit Family Medicine Leni Moyer DO [address] [place] [address] [place] [address] 08/10/2023 Office Visit Rheumatology Brandon Lewis MD [address] [place] [address] Health Maintenance Due Date Last Done Comments Alpha-1 Antitrypsin 1963 DTaP,Tdap,and Td Vaccines (2 - Td or Tdap) 10/02/2020 10/02/2010, 10/31/2004 COVID-19 Vaccine (6 - Moderna series) 05/21/2022 03/26/2022, 05/06/2021, 05/06/2021, Additional history exists *BISPHONATE OR OTHER ACCEPTABLE MEDICATION NEEDED FOR OSTEOPOROSIS (REFER TO SMARTSET #1146) 06/28/2022 CKD PHOS USE SMARTSET 22968 04/15/2023 08/0 10/2021, 03/12/2021, 07/19/2019, Additional history exists Influenza Vaccine (FLU shot) (#1) 2023 06/14/2018, 06/22/2017, 08/12/2016, Additional history exists HbA1c 06/30/2023 12/29/2022, 05/16, 11/22/2021, Additional history exists DIABETES-EYE EXAM 07/03/2023 07/03/2022, , 04/12/2020, Additional history exists CKD HGB USE SMARTSET 01673 10/15/202310/15, 10/15/2022, 09/10/2022, Additional history exists GFR [...] D LEVEL ONCE IN A LIFETIME-USE SMARTSET# 00249 Completed 10/18/2020, 03/06/2020, 03/26/2018, Additional history exists [...] this encounter Medical Devices Implanted Type Area Hot Braider Device Identifier Shelf Expiration Date Model / Serial / Lot Lens 19.5 Sn60w - [id number] - [id number] Implanted:Qty: 1 on 11/21/2016 by Faraz Jeffers MD at OR [facility] Left: Eye RAMÓN : SURGICAL 05/14/2021 SN60WF.1 95 / [id number] / Lens 19.5 Sn60wf - [id number] - [id number] Implanted:Qty: 1 on 04/22/2019 by Faraz Jeffres MD at OR [facility] Right: Eye RAMÓN : SURGICAL 07/14/2023 SN60WF.195 / [id number] / documented as of this encounter Visit Diagnoses Diagnosis Chronic drug-induced interstitial lung disorders (HCC)- Primary 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 Care Teams Gore Seamer Relationship Specialty Start Date End Date Leni Moyer, [address] [place] [id number] PCP - General Internal Medicine 11/18/17 documented as of this encounter
--- OUTSIDE RECORDS SUMMARY | 2023-09-05 18:44 | External Medical Summary | Summary of Care ---
Author Name Unknown Organization [facility] Address [address] [facility] [place] [address] Phone [phone] Care Team Providers Care Physicist [employer] Name Role Phone Leni Moyer DO Primary Care Provider [phone] Reason for Visit * Reason Onset Date Comments Hospital Follow-Up Hospital Follow-Up 05/15/2023 Encounter Details Date Type Department Care Team Description 05/15/2023 Office Visit Family Medicine [address] [id number] Keily Reese MD [address] [place] [address] [place] [address] Hospital discharge follow-up*; Sepsis without acute organ dysfunction, due to unspecified organism (HCC); Cat scratch Allergies Active Allergy Reactions Severity Noted Date Comments Influenza Virus Vac Live Quad High 2020 2 years ago, flown to [facility] Methotrexate 08/19/2013 pneumonitis Other Allergy (See Comments) Rash 012 Insecticides cause breathing problems Penicillins Hives 02/01/2001 Ranitidine Rash 07/14/2001 documented as of this encounter (statuses as of 05/15/2023) Medications Medication Sig Dispensed Refills Start Date End Date Status ONETOUCH ULTRASOFT LANCETS MISC Check BS twice daily. E 11.9 1 Box Dosing Unit 11 12/15/2016 Active Nystatin (NYSTOP) 717731 UNIT/GM powderIndications:Cu taneous candidiasis APPLY TOPICALLY TO [...] Reported on 05/14/2023 Blood Glucose Monitoring Suppl (Robotoki SYSTEM) w/Device KIT Twice daily. Dx E 11.9 1 Kit 0 12/25/2017 Active Glucose Blood (sMedio ULTRA BLUE) STRPIndications:Type 2 diabetes mellitus with hemoglobin A1c goal of less than 7.0% ([facility]) Check BS twice daily E11.9 [...] in 60 to 180 days Given at [facility] 1 Each 1 12/29/2022 Active Vancomycin [...] shortness of breath or wheezing 0 Active documented as of this encounter (statuses as of 05/15/2023) Active Problems Problem Noted Date Polyneuropathy associated with underlyin g disease 10/15/2022 Paroxysmal atrial fibrillation 3 History of 2019 novel coronavirus diseas e (COVID-19) 09/18/2022 DNR (do not resuscitate) 09/17/2022 H/O Clostridium difficile infection 08/15 Primary open angle glaucoma (POAG) of asiya th eyes, mild stage 04/02/2022 History of AR (myocardial infarction) Neutropenia 04/02/2022 Last Assessment & [...] osteoporosis without current pathological fracture 06/08/2020 [employer]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 of therapeutic elysia g 03/06/2020 Chronic right-sided heart failure 2019 Major depressive disorder, recurrent epi sode, in partial remission 11/03/2019 Last Assessment & Plan: Managed well with Cymbalta 60 mg daily Gastroesophageal reflux disease without esophagitis 11/03/2019 Last Assessment & Plan: Managed with pantoprazole 40 mg daily Coronary artery disease invo lving [place] coronary artery of [place] heart without angina pectoris 11/03/2019 Last Assessment [...] as of this encounter (statuses as of 05/15/2023) Resolved Problems Problem Noted Date Resolved Date [...] ICD-10 update of inactive term LOC PRIM [id number] 04/12/2003 04/15/20 17 PURE HYPERCHOLESTEROLEM 12/27/2001 08/03/20 [...] COPD, moderate 12/05/2014 CAD (coronary artery disease), [place] coronary a rtery 02/24/2022 Overview: duplicate documented as of this encounter (statuses as of 05/15/2023) Immunizations Name Administration Dates Next Due COVID-19 mRNA, LNP-s, No Pre serve, 2-Dose Series (Moderna) 05/06/2021,01/31/2021,01/02/2021 COVID-19, LNP-s, No Preserve , Pete-sucrose, Ages 12+ (Pfizer) 03/26/2022 Covid-19 Mrna, Lnp-s, No Pre serve, Booster (Moderna) 05/06/2021 PPD 11/25/2011 Pneumococcal Conjugate Vacc, [...] Date Smoking Tobacco: Never Smokeless Tobacco: Never Tobacco Cessation:Counseling Given: No Alcohol Use Standard Drinks/Week Comments Not Currently [...] Sign Reading Time Taken Comments Blood Pressure 136/70 05/15/2023 3:17 PM EDT Pulse 96 05/15/2023 3:17 PM EDT Temperature 36.8 C (98.3 F) 05/15/2023 3:17 PM ED T Respiratory Rate 16 05/15/2023 3:17 PM EDT Oxygen Saturation 95% 05/15/2023 3:17 PM EDT Inhaled Oxygen Concentration - - Weight 58.6 kg (129 lb 3.2 oz) 05/15/2023 3:17 P M EDT Height 147.3 cm (4' 10") 05/15/2023 3:17 PM EDT Body Mass Index 27 05/15/2023 3:17 PM EDT documented in this encounter Progress Notes * Keily Reese MD - 05/15/2023 3:27 PM EDT Subjective: HPI: Belem Rodriguez is a 77 year old female with hx of HTN, COPD/Asthma, DMII, CAD, diastolic heart failure, RA on chronic prednisone, hx shingles with post herpetic neuralgia, osteoporosis, recurrent C.diff, mild aortic stenosis, Afib seen for Pt was admitted to the hospital from 05/08-05/13 Sepsis and metabolic encephalopathy: -2/2 UTI and Cat scratch disease -ID consulted ---- discharged on cipro Today: - pt is doing well - denied any fever or abd pain or N/V -still taking vancomycin BID ---- still having loose stool but improving - cat scratches are healing - denied any confusion ---- pt's also stated that pt is not having any confusion Complained of itchy skin on the lower back - denied any burning sensation or pain Patient Active Problem List Diagnosis Code Other [...] involving multiple sites with positive rheumatoid factor ([facility]) M05.79 Adjustment disorder with anxious mood F43.22 Essential hypertension with goal blood pressure less than 140/90 I10 Encounter for long-term (current) use of medications Z79.899 Generalized osteoarthritis of multiple sites M15.9 Chronic obstructive pulmonary disease ([facility]) J44.9 Impingement syndrome, shoulder, left M75.42 Esophageal dysphagia R13.19 Type 2 diabetes mellitus with peripheral neuropathy ([facility]) E11.42 History of Clostridium difficile colitis Z86.19 History of rotator cuff tear Z87.39 Chronic right-sided heart failure ([facility]) I50.812 Major depressive disorder, recurrent episode, in partial remission ([facility]) F33.41 Gastroesophageal reflux disease without esophagitis K21.9 Coronary artery disease involving [place] coronary artery of [place] heart without angina pectoris I25.10 [facility] current use of therapeutic drug Z79.899 Age-related osteoporosis without current pathological fracture M81.0 Type 2 diabetes mellitus with hemoglobin A1c goal of less than 8.0% ([facility]) E11.9 Moderate protein-calorie malnutrition ([facility]) E44.0 Type 2 diabetes mellitus with stage 3b chronic kidney disease, without long-term current use of insulin ([facility]) E11.22, N18.32 Hypertensive heart and kidney disease with chronic right heart failure and stage 3b chronic kidney disease ([facility]) I13.0, I50.812, N18.32 Primary open angle glaucoma (POAG) of both eyes, mild stage H40.1131 History of AR (myocardial infarction) I25.2 Neutropenia ([facility]) D70.9 Cerebrovascular disease, arteriosclerotic, post-stroke I67.2, Z86.73 Mild aortic stenosis I35.0 H/O Clostridium difficile infection Z86.19 DNR (do not resuscitate) Z66 History of 2019 novel coronavirus disease (COVID-19) Z86.16 Polyneuropathy associated with underlying disease ([facility]) G63 Paroxysmal atrial fibrillation ([facility]) I48.0 Current Outpatient Medications Medication Sig Dispense Refill ONETOUCH ULTRASOFT LANCETS MISC Check BS twice daily. E 11.9 1 Box Dosing Unit 11 Nystatin (NYSTOP) 653160 UNIT/GM powder APPLY TOPICALLY TO AFFECTED AREA 3 TIMES A DAY. SPRINKLE OVER AFFECTED AREA. 15 g 2 triamcinolone acetonide (ARISTOCORT) 0.1 % cream Apply topically to affected area 2 times a day. Toaffected area. (Patient taking differently: Apply topically to affected area 2 times a day as needed. To affected area.) 60 g 5 Blood Glucose Monitoring Suppl (CANDDiUCH ULTRA SYSTEM) w/Device KIT Twice daily. Dx E 11.9 1 Kit 0 Glucose Blood (ItaconixTOUCH ULTRA BLUE) STRP Check BS twice daily [...] wheezing Dx: Asthma J45.30 72 mL 3 Magnesium Oxide 400 (240 Mg) MG Oral Tablet (Mag-Ox) Take 1 Tablet by mouth in the morning and 1 Tablet before bedtime. 60 Tablet 0 Ocuvite-Lutein Oral Capsule Take 1 Capsule by mouth in the morning. 30 Capsule 0 Zoster Vac Recomb Adjuvanted 50 MCG/0.5ML Intramuscular Suspension Reconstituted (Shingrix) Inject 0.5 mL into a large muscle now and repeat dose in 60 to 180 days Given at [facility] 1 Each 1 Vancomycin HCl 125 MG Oral Capsule (Vancocin) [...] DAY IN THE MORNING 90 Tablet 3 Ciprofloxacin HCl 500 MG Oral Tablet (Cipro) Take 1 Tablet by mouth in the morning and 1 Tablet before bedtime. Albuterol Sulfate (2.5 MG/3ML) 0.083% Inhalation Nebulization Solution (Proventil) Inhale 1 Vial via nebulizer. Use as directed, if needed, for shortness of breath or wheezing No current facility-administered medications for this visit. Past Medical History: Diagnosis Date Abnormal results of liver function studies 11/2007 Abnormality of gait 08/12/2013 Adjustment disorder with anxious mood 03/13/2016 Asthma, mild persistent 07/18/2015 Asthma, moderate persistent 05/31/2010 Asthma, severity to be determined B12 deficiency 07/28/2013 Bite of other animal except arthropod(E906.3) 10/31/2004 cat bite to back of right hand C. difficile diarrhea 03/28/2019 CAD (coronary artery disease), [place] coronary artery 08/10/2013 LAD disease Carpal tunnel syndrome 08/2006 mild left Chronic drug-induced interstitial lung disorders (HCC) 06/06/2013 Methotrxate Closed nondisplaced fracture of triquetrum of left wrist with routine healing 09/07/2022 Clostridioides difficile diarrhea Degenerative cervical spinal stenosis Depressive disorder, not elsewhere classified 11/23/2009 DM type 2 causing renal disease (HCC) 06/1999 DM type 2, goal A1c below 7 06/1999 Dyslipidemia, goal LDL below 100 08/21/2009 Per Lipid Taxonomy. Encounter for long-term (current) use of medications 09/02/2016 Esophageal reflux Esotropia RET 5 PD ASIYA OD Gastroparesis 2006 Generalized osteoarthritis of multiple sites 04/15/2017 Glaucoma, open angle 0.3/0.6 (07/01); FH+;Tmax 23;VF 11/29 Gouty arthropathy, unspecified 06/28/2009 ICD-9 Code Update HTN, goal below 130/80 09/05/2009 HTN, goal below 140/90 Hypertension goal BP (blood pressure) < 140/80 08/01/2014 INFORMATION pachy 606/613; -4/-5 INFORMATION Mom lost VA p catx INFORMATION Plaquenil - VF (03/31) Kidney disease, chronic, stage III (GFR 30-59 ml/min) ([facility]) Kidney disease, chronic, stage III (GFR 30-59 ml/min) ([facility]) Knee joint replacement status 11/01/2007 left knee Migraine without aura Obesity, BMI not known Open wound of upper limb 11/05/2004 Other specified glaucoma Peripheral neuropathy 08/12/2013 Persistent insomnia 03/29/2013 Prediabetes 06/17/2021 Pressure ulcer of sacral region, unstageable ([facility]) 10/15/2022 Primary localized osteoarthrosis of shoulder region 09/02/2006 Primary localized osteoarthrosis, lower leg 04/12/2003 Primary osteoarthritis of right shoulder 10/04/2015 Pseudophakia OU Rheumatoid arthritis involving multiple sites with positive rheumatoid factor ([facility]) 03/05/2016 Rheumatoid arthritis(714.0) Rotator cuff rupture 10/16/1996 right shoulder Rupture of anterior cruciate ligament of right knee 06/21/2020 chronic Thiamine deficiency 08/15/2013 Type 2 diabetes mellitus with diabetic chronic kidney disease ([facility]) 04/03/2015 Type 2 diabetes mellitus with hemoglobin A1c goal of less than 8.0% ([facility]) 03/01/2019 Type 2 diabetes mellitus with peripheral neuropathy ([facility]) 05/10/2019 Vitamin D deficiency 04/11/2010 Past Surgical History: Procedure Laterality Date ARTHROPLASTY KNEE TOTAL 11/01/2007 left knee - Dr. Barnett BONE MARROW BIOPSY Left 07/11/2022 BONE MARROW BIOPSY (IES) performed by Kai Riggins MD at [facility] CARDIAC CATH SCANNED RESULT 08/10/2013 moderate disease LAD- Dr. Meza COLONOSCOPY, DIAGNOSTIC (RECTUM) 01/07/2017 diverticulosis, repeat 10 yrs/COLONOSCOPY FLEXIBLE PROXIMAL DIAGNOSTIC performed by Wood Menezes MD at ENDOSCOPY [facility] COLONOSCOPY, DIAGNOSTIC (RECTUM) 02/14/2021 diverticulosis / COLONOSCOPY FLEXIBLE PROXIMAL DIAGNOSTIC performed by Vinny Starr MD at ENDOSCOPY [facility] COLONOSCOPY, GI REFERRAL OP 12/2006 normal - Dr. Menezes EGD, FLEXIBLE, DIAGNOSTIC 12/1998 EGD, FLEXIBLE, DIAGNOSTIC 03/09/2019 acid reflux on /[facility] INJECT DX/THER SUBSTANCE INTERLAMINAR LUMBAR/SACRAL W IMAGE GUIDE 12/17/2017 INJECTION SPINE LUMBAR OR SACRAL performed by Andrea Mendoza DO at [facility] LAPAROSCOPY; CHOLECYSTECTOMY 11/13/2019 REMOVAL OF OVARY/OVIDUCT(S) ovarian cyst - unilateral REMOVE CATARACT, INSERT LENS PROSTH Left 11/21/2016 EXTRACAPSULAR CATARACT REMOVAL WITH INTRAOCULAR LENS performed by Faraz Jeffers MD at [facility] REMOVE CATARACT, INSERT LENS PROSTH 04/22/2019 OD Arnold SN60WF 19.5 REMOVE CATARACT, INSERT LENS PROSTH Right 04/22/2019 EXTRACAPSULAR CATARACT REMOVAL WITH INTRAOCULAR LENS performed by Faraz Jeffers MD at [facility] REPAIR ARM TENDON/MUSCLE 11/03/1996 rotator cuff repair - right shoulder REVERSE TOTAL SHOULDER ARTHROPLASTY Right 12/21/2015 Dr. Ly- [facility], repaired earlier x 2 at [facility] TOTAL ABD HYSTERECTOMY W/WO REMOVAL OF TUBE(S) fibroids UPPER ENDOSCOPY GI REFERRAL OP 12/25/2006 acid reflux--negative for H.Pylori Review of patient's allergies indicates: Allergen Reactions Influenza Virus Vaccine [Influenza Virus Vac Live Quad] 2 years ago, flown to [facility] Methotrexate pneumonitis Other Allergy (See Comments) Rash Insecticides cause breathing problems Penicillins Hives Ranitidine Rash Family History Problem Relation Age of Onset Breast Cancer Mother Heart Disorder Son anthony Ear Disease Son hearing problems Arthritis Son Asthma Son trixie Arthritis Son Stroke Mother Heart Disorder Mother pacemaker Other (ra) Mother Arthritis Father Stroke Father Glaucoma Mother Hypertension Grandmother (Maternal) Heart Disorder Grandfather (Paternal) Hypertension Grandfather (Paternal) Social History Tobacco Use Smoking status: Never Smokeless tobacco: Never Substance Use Topics Alcohol use: Not Currently Comment: ocassional Vaping/E-Cigarette Use Vaping/E-Cigarette Use Never User Vaping/E-Cigarette Substances Vaping/E-Cigarette Devices ROS: -Per HPI OBJECTIVE: BP 136/70 | Pulse 96 | Temp 36.8 C (98.3 F) (Tympanic) | Resp 16 | Ht 1.473 m (4' 10") | Wt 58.6 kg (129 lb 3.2 oz) | SpO2 95% | BMI 27.00 kg/m | BSA 1.55 m PHYSICAL EXAM: Vitals are reviewed General:. NAD, well developed HEENT:. Normal Conjunctiva, EOMI Abd:. soft, ND, NT Skin: lower back dry skin, no vesicles or erythema Psych:. AAOx3, normal affect ASSESSMENT/PLAN: Vss and overall normal exam and mental status The itchy back is 2/2 very mild dry skin --- no sign of shingles ---- recommended calamine lotion Advised the pt to complete the abx Hospital discharge follow-up (Primary) - DISCH MED RECON CUR MED LIS Sepsis without acute organ dysfunction, due to unspecified organism (HCC) - COMPREHENSIVE METABOLIC PANEL Cat scratch - COMPREHENSIVE METABOLIC PANEL Keily Reese MD [facility] [address] documented in this encounter Nursing Notes * Hetal Marti LPN - 05/15/2023 3:16 PM EDT Pt here for hospital follow up Having itchiness down her back x 1 month Has used benadryl - no help Denies any lorenz on her back Denies any bites Would like wounds on arm looked at documented in this encounter Plan of Treatment Upcoming Encounters Date Type Specialty Care Team Description 06/03/2023 Office Visit Infectious Disease Ami Addison MD [address] [facility] [place] [address] 07/10/2023 Office Visit Family Medicine Leni Moyer[address] [place] [address] 08/10/2023 Office Visit Rheumatology Oppermann, Brandon P, MD [address] [place] [address] Pending Results Name Type Priority Associated Diagnoses Date /Time COMPREHENSIVE METABOLIC PANEL Lab Routine Sepsis without acute organ dysfunction, due to unspecified organism (HCC) Cat scratch 05/15/2023 3:47 PM EDT Health Maintenance Due Date Last Done Comments Alpha-1 Antitrypsin 1965 DTaP,Tdap,and Td Vaccines (2 - Td or Tdap) 10/02/2020 10/02/2010, 10/31/2004 COVID-19 Vaccine (6 - Moderna series) 05/21/2022 03/26/2022, 05/06/2021, 05/06/2021, Additional history exists *BISPHONATE OR OTHER ACCEPTABLE MEDICATION NEEDED FOR OSTEOPOROSIS (REFER TO SMARTSET #1146) 06/28/2022 CKD PHOS USE SMARTSET 26640 04/15/2023 08/0 10/2021, 03/12/2021, 07/19/2019, Additional history exists Influenza Vaccine (FLU shot) (#1) 2023 06/14/2018, 06/22/2017, 08/12/2016, Additional history exists HbA1c 06/30/2023 12/29/2022, 05/16, 11/22/2021, Additional history exists DIABETES-EYE EXAM 07/03/2023 07/03/2022, , 04/12/2020, Additional history exists GFR 07/15/2023 01/12/2023, 0403/2023, 10/15/2022, Additional history exists CKD HGB USE SMARTSET 91305 10/15/202310/15, 10/15/2022, 09/10/2022, Additional history exists Albumin/Creatinine Ratio 04/08/2024 023, 04/15/2022, 06/12/2021, Additional history exists DIABETES-FOOT EXAM 04/08/2024 04/08/2023, 0 06/10/2022, 06/12/2021, Additional history exists Depression Screening, Annual for Pts 12 and Over 04/08/2024 04/08/2023 O2 ASSESSMENT COMPLETED IN PAST YEAR FOR COPD 05/08/2024 05/08/2023 DXA Scan 05/04/2025 05/04/2023, 03/14, 01/18/2013 Pneumococcal Vaccine: 65+ Years Completed 03/05/2017, 06/28/2015, 11/25/2011, Additional history exists Fecal Occult Blood Test Discontinued 09/23/19 20, 08/06/2018, 02/21/2004 VITAMIN D LEVEL ONCE IN A LIFETIME-USE SMARTSET# 49986 Completed 10/18/2020, 03/06/2020, 03/26/2018, Additional history exists [...] this encounter Medical Devices Implanted Type Area Bottom Loader Device Identifier Shelf Expiration Date Model / Serial / Lot Lens 19.5 Sn60wf - [id number] - [id number] Implanted:Qty: 1 on 11/21/2016 by Faraz Jeffers MD at [facility] Left: Eye ARNOLD : SURGICAL 05/14/2021 SN60WF.1 95 / [id number] / Lens 19.5 Sn60wf - [id number] - [id number] Implanted:Qty: 1 on 04/22/2019 by Faraz Jeffers MD at [facility] Right: Eye [employer]OLD : SURGICAL 07/14/2023 SN60WF.195 / [id number] / documented as of this encounter Visit Diagnoses Diagnosis Hospital discharge follow-up- Primary Other follow-up examination Sepsis without acute organ dysfunction, due to unspecified organism (HCC) Cat scratch Other and unspecified superficial injury of other, multiple, and unspecified sites, without mention of infection documented in this encounter Advance Directives Latest [...] and were consensually agreed upon. Care Teams Physicist [employer] Relationship Specialty Start Date End Date Leni Moyer[address] [place] [address] PCP - General Internal Medicine 11/18/17 documented as of this encounter
--- OUTSIDE RECORDS SUMMARY | 2023-09-05 18:44 | External Medical Summary | Summary of Care ---
Author Name Unknown Organization [facility] Address [address] [facility] [place] [address] Phone [phone] Care Team Providers Care Optical Glass Wet Inspector Name Role Phone Ernesto Harper DO Primary Care Provider [phone] Reason for Visit * Reason Comments Medication Refill Encounter Details Date Type Department Care Team Description 05/15/2023 Refill [facility], [facility] [address] [facility] [place] [address] Ernesto Harper DO [address] [place] [address] [place] [address] Allergies Active Allergy Reactions Severity Noted Date Comments Influenza Virus Vac Live Quad High 2020 2 years ago, flown to [facility] Methotrexate 08/19/2013 pneumonitis Other Allergy (See Comments) Rash 012 Insecticides cause breathing problems Penicillins Hives 02/01/2001 Ranitidine Rash 07/14/2001 documented as of this encounter (statuses as of 05/19/2023) Medications Medication Sig Dispensed Refills Start Date End Date Status ONETOUCH ULTRASOFT LANCETS MISC Check BS twice daily. E 11.9 1 Box Dosing Unit 11 12/15/2016 Active Nystatin (NYSTOP) 589304 UNIT/GM powderIndications:Cu taneous candidiasis APPLY TOPICALLY TO [...] Reported on 05/14/2023 Blood Glucose Monitoring Suppl ([employer] SYSTEM) w/Device KIT Twice daily. Dx E 11.9 1 Kit 0 12/25/2017 Active Glucose Blood (M:MetricsTOUCH ULTRA BLUE) STRPIndications:Type 2 diabetes mellitus with hemoglobin A1c goal of less than 7.0% ([facility]) Check BS twice daily [...] in 60 to 180 days Given at [place] 1 Each 1 12/29/2022 Active Vancomycin [...] as of this encounter (statuses as of 05/19/2023) Active Problems Problem Noted Date Polyneuropathy associated [...] mg daily Coronary artery disease invo lving [place] coronary artery of [place] heart without angina pectoris 11/03/2019 Last Assessment [...] as of this encounter (statuses as of 05/19/2023) Resolved Problems Problem Noted Date Resolved Date [...] ICD-10 update of inactive term LOC PRIM [id number] 04/12/2003 04/15/20 17 PURE HYPERCHOLESTEROLEM 12/27/2001 08/03/20 [...] COPD, moderate 12/05/2014 CAD (coronary artery disease), [place] coronary a rtery 02/24/2022 Overview: duplicate documented as of this encounter (statuses as of 05/19/2023) Immunizations Name Administration Dates Next Due COVID-19 [...] Telephone Encounter - Ernesto Harper DO - 05/19/2023 8:25 AM EDTSigned Prescriptions: Disp Refills amLODIPine Besylate 10 MG Oral Tablet (Nor*100 Ta*3 Sig: TAKE ONE TABLET BY MOUTH EVERY MORNING Authorizing Provider: ERNESTO HARPER * Telephone Encounter - Aundrea Patton LPN - 05/15/2023 4:33 PM EDTPending Prescriptions: Disp Refills amLODIPine Besylate 10 MG Oral Tablet (Nor*100 Ta*3 Sig: TAKE ONE TABLET BY MOUTH EVERY MORNING * Telephone Encounter - Aundrea Patton LPN - 05/15/2023 4:32 PM EDT Did you pend patient's preferred pharmacy and medication before forwarding?yes Pharmacy: [facility] Pending Prescriptions: Disp Refills amLODIPine Besylate 10 MG Oral Tablet (No*100 Ta*3 Sig: TAKE ONE TABLET BY MOUTH EVERY MORNING Last Visit: Visit date not found (in office), Visit date not found (telemedicine) Next Visit: Visit date not found If no future appointments scheduled, and last appointment is greater than a year ago, please schedule patient for a follow-up appointment Last date the medication was ordered: 10/01/22 Is this request for a controlled substance?No [...] Labs: Lab Results Component Value Date/Time CREAT 1.5 (H) 01/12/2023 10:42 AM CREAT 1.3 (H) 08/13/2020 02:10 PM POTASSIUM 4.5 01/12/2023 10:42 AM POTASSIUM 3.2 (L) 08/13/2020 02:10 PM TSH 1.48 10/15/2022 12:58 PM TSH 3.07 09/12/2019 01:10 PM LDLCALC 30 10/18/2020 11:07 AM LDLCALC 09/12/2019 01:10 PM Uninterpretable, recommend direct LDL cholesterol testing. LDLDIRECT 51 12/29/2022 11:36 AM LDLDIRECT 27 03/06/2020 01:30 PM LDLDIRECT 89 08/02/2007 02:51 PM ALT 66 (H) 12/29/2022 11:36 AM ALT 21 08/13/2020 02:10 PM HGBA1C 6.0 (H) 12/29/2022 11:36 AM HGBA1C 6.4 (H) 03/06/2020 01:30 PM Aundrea Patton LPN [facility] 05/15/2023,4:32 PM * Telephone Encounter - Chasity Unger RPh - 05/15/2023 10:15 AM EDTPending Prescriptions: Disp Refills amLODIPine Besylate 10 MG Oral Tablet (Nor*100 Ta*3 Sig: TAKE ONE TABLET BY MOUTH EVERY MORNING documented in this encounter Plan of Treatment Upcoming Encounters Date Type Specialty Care Team Description 06/03/2023 Office Visit Infectious Disease [facility] [address] [facility] [address] 07/10/2023 Office Visit Family Medicine Ernesto Harper[address] [place] [id number] 08/10/2023 Office Visit Rheumatology Brandon Lewis MD [facility] [place] [address] Health Maintenance Due Date Last Done Comments Alpha-1 Antitrypsin 1963 DTaP,Tdap,and Td Vaccines (2 - Td or Tdap) 10/02/2020 10/02/2010, 10/31/2004 COVID-19 Vaccine (6 - Moderna series) 05/21/2022 03/26/2022, 05/06/2021, 05/06/2021, Additional history exists *BISPHONATE OR OTHER ACCEPTABLE MEDICATION NEEDED FOR OSTEOPOROSIS (REFER TO SMARTSET #1146) 06/28/2022 CKD PHOS USE SMARTSET 27828 04/15/2023 08/0 10/2021, 03/12/2021, 07/19/2019, Additional history exists Influenza Vaccine (FLU shot) (#1) 2023 06/14/2018, 06/22/2017, 08/12/2016, Additional history exists HbA1c 06/30/2023 12/29/2022, 05/16, 11/22/2021, Additional history exists DIABETES-EYE EXAM 07/03/2023 07/03/2022, , 04/12/2020, Additional history exists CKD HGB USE SMARTSET 72091 10/15/202310/15, 10/15/2022, 09/10/2022, Additional history exists GFR [...] D LEVEL ONCE IN A LIFETIME-USE SMARTSET# 43475 Completed 10/18/2020, 03/06/2020, 03/26/2018, Additional history exists [...] encounter Medical Devices Implanted Type Area Paper And Pulp Mill Operator Device Identifier Shelf Expiration Date Model / Serial / Lot Lens 19.5 Sn60wf - [id number] - [id number] Implanted:Qty: 1 on 11/21/2016 by Faraz Jeffers MD at OR [facility] Left: Eye RAMÓN : SURGICAL 05/14/2021 SN60WF.1 95 / [id number] / Lens 19.5 Sn60wf - [id number] - [id number] Implanted:Qty: 1 on 04/22/2019 by Faraz Jeffers MD at OR [facility] Right: Eye RAMÓN : SURGICAL 07/14/2023 SN60WF.[id number] / [id number] / documented as of this encounter [...] and were consensually agreed upon. Care Teams Optical Glass Wet Inspector Relationship Specialty Start Date End Date Ernesto Harper[address] [place] [phone] PCP - General Internal Medicine 11/18/17 documented as of this encounter
--- OUTSIDE RECORDS SUMMARY | 2023-09-05 18:44 | External Medical Summary | Summary of Care ---
Author Name Unknown Organization [facility] Address [address] [facility] [place] [address] Phone [phone] Care Team Providers Care Mica Plate Layer Name Role Phone Leni Moyer Primary Care Provider [phone] Reason for Visit * Reason Comments eRx-Medication Refill Encounter Details Date Type Department Care Team Description 03/01/2023 Refill Rheumatology [place] [id number] [address] [place] [address] Marlyn Black MD [facility] [place] [address] Encounter for long-term (current) use of medications*; Senile osteoporosis Allergies Active Allergy Reactions Severity Noted Date Comments Influenza Virus Vac Live Quad High 2020 2 years ago, flown to [facility] Methotrexate 08/19/2013 pneumonitis Other Allergy (See Comments) Rash 012 Insecticides cause breathing problems Penicillins Hives 02/01/2001 Ranitidine Rash 07/14/2001 documented as of this encounter (statuses as of 05/21/2023) Medications Medication Sig Dispensed Refills Start Date End Date Status ONETOUCH ULTRASOFT LANCETS MISC Check BS twice daily. E 11.9 1 Box Dosing Unit 11 7 Active Nystatin (NYSTOP) 878101 UNIT/GM powderIndications: Cutaneous candidiasis APPLY TOPICALLY TO AFFECTED AREA 3 TIMES A DAY. SPRINKLE OVER AFFECTED AREA. 15 g 2 7 Active triamcinolone acetonide (ARISTOCORT) 0.1 % creamIndications:P ruritic condition Apply topically to affected area 2 times a day. To affected area. 60 g 5 7 Active Additional Information Patient taking differently:TopicalBID PRN, To affected area., Informant: At Discharge, Reported on 05/14/2023 Blood Glucose Monitoring Suppl ([employer] SYSTEM) w/Device KIT Twice daily. Dx E 11.9 1 Kit 0 8 Active Glucose Blood (Motion TraxxTOUCH ULTRA BLUE) STRPIndications:Ty pe 2 diabetes mellitus with hemoglobin A1c goal of less than 7.0% ([facility]) Check BS twice daily E11.9 100 Strip 11 8 Active betamethasone dipropionate (DIPROSONE) 0.05 % creamIndications:R cipriano and nonspecific skin eruption,Itching Apply topically to affected area 2 times a day. To affected area. 45 g 1 8 Active Additional Information Patient taking differently:TopicalBID PRN, To affected area., Informant: At Discharge, Reported on 05/14/2023 Respiratory Therapy Supplies (NEBULIZER/TUBING/ MOUTHPIECE) KIT 0 [...] al reflux disease, unspecified whether esophagitis present 1 tablet by mouth daily 30 to 60 minutes before the first meal of the day 100 Tablet 3 3 Active Montelukast Sodium 10 MG Oral Tablet (Singulair) Take 1 Tablet by mouth in the morning. 100 Tablet 3 3 Active Additional Information Patient taking differently:10 mg [...] before bedtime. 60 Tablet 0 3 Active Ocuvite-Lutein Oral Capsule Take 1 Capsule by mouth in the morning. 30 Capsule 0 3 Active Zoster Vac Recomb Adjuvanted 50 MCG/0.5ML Intramuscular Suspension Reconstituted (Shingrix) Inject 0.5 mL into a large muscle now and repeat dose in 60 to 180 days Given at [place] 1 Each 1 3 Active Metoprolol Succinate ER 25 MG Oral Tablet Extended Release 24 Hour (toPROL XL) Take 1 Tablet by mouth in the morning. 30 Tablet 5 3 023 Discontinued(Re fill) DULoxetine HCl 30 MG Oral Capsule Delayed Release Particles (Cymbalta)Indicati ons:Generalized osteoarthritis of multiple sites,Degeneration of lumbosacral intervertebral disc,Adjustment disorder with anxious mood TAKE 2 CAPSULES BY MOUTH EVERY DAY 200 Capsule 1 3 023 Discontinued(Re fill) Solifenacin Succinate 10 MG Oral Tablet (VESIcare) Take 1 Tablet by mouth in the morning. 90 Tablet 3 3 023 Discontinued(Me dication List Clean Up) Folic Acid 1 MG Oral TabletIndications: Rheumatoid arthritis (HCC) Take 1 Tab by mouth daily. 90 Tablet 2 3 023 Discontinued(Re fill) Latanoprost 0.005 % Ophthalmic Solution (Xalatan)Indicatio ns:Primary open angle glaucoma of both eyes, mild stage INSTILL 1 DROP INTO BOTH EYES AT BEDTIME 7.5 mL 2 3 023 Discontinued(Re fill) predniSONE 5 MG Oral Tablet (Deltasone) TAKE 1 TABLET BY MOUTH EVERY DAY 90 Tablet 2 3 023 Discontinued Proventil HFA 108 (90 Base) MCG/ACT Inhalation Aerosol Solution Inhale 2 Puffs by mouth every 4 hours as needed for Wheezing. 8 g 0 3 023 Discontinued(Me dication List Clean Up) Thiamine HCl 100 MG Oral Tablet (vitamin B-1)Indications:Th iamine deficiency TAKE 1/2 TABLET BY MOUTH DAILY. 45 Tablet 1 3 023 Discontinued(Re fill) Vancomycin HCl 125 MG Oral Capsule (Vancocin) Take 1 Capsule by mouth every 6 hours. 360 Capsule 0 3 023 Discontinued(Re fill) Mirtazapine 15 MG Oral Tablet (Remeron) Take 1 Tablet by mouth at bedtime. 100 Tablet 3 3 023 Discontinued(Kira becker prescription brought in as discontinued) Potassium Chloride Lisette ER 20 MEQ Oral Tablet Extended Release Take 2 Tablets by mouth in the morning. 100 Tablet 3 3 023 Discontinued(Me dication List Clean Up) Rosuvastatin Calcium 20 MG Oral Tablet (Crestor) Take 1 Tablet by mouth in the morning. 90 Tablet 1 3 023 Discontinued(Le gacy prescription brought in as discontinued) predniSONE 5 MG Oral Tablet (Deltasone) TAKE ONE TABLET BY MOUTH EVERY DAY 90 Tablet 1 3 023 Discontinued(Le gacy prescription brought in as discontinued) documented as of this encounter (statuses as of 05/21/2023) Active Problems Problem Noted Date Polyneuropathy associated [...] mg daily Coronary artery disease invo lving [place] coronary artery of [place] heart without angina pectoris 11/03/2019 Last Assessment [...] as of this encounter (statuses as of 05/21/2023) Resolved Problems Problem Noted Date Resolved Date [...] ICD-10 update of inactive term LOC PRIM [id number] 04/12/2003 04/15/20 17 PURE HYPERCHOLESTEROLEM 12/27/2001 08/03/20 [...] COPD, moderate 12/05/2014 CAD (coronary artery disease), [place] coronary a rtery 02/24/2022 Overview: duplicate documented as of this encounter (statuses as of 05/21/2023) Immunizations Name Administration Dates Next Due COVID-19 mRNA, LNP-s, No Pre serve, 2-Dose Series (Moderna) 05/06/2021,01/31/2021,01/02/2021 COVID-19, LNP-s, No Preserve , Pete-sucrose, Ages 12+ (Pfizer) 03/26/2022 Covid-19 Mrna, Lnp-s, No Pre serve, Booster (Moderna) 05/06/2021 Influenza, Whole Virus 08/05/2000 PPD [...] Miscellaneous Notes * Telephone Encounter - LORAINE Kwon - 03/10/2023 11:14 AM EDT No answer. Left VM asking pt to call scheduling # [phone] to let us know if she would like to schedule the DEXA, * Addendum Note - Marlyn Black MD - 03/06/2023 4:32 PM EDTAddended by: MARLYN BLACK on: 03/06/2023 04:32 PM Modules accepted: Orders * Telephone Encounter - Marlyn Black MD - 03/06/2023 4:32 PM EDT schedule dexa if patient wants to get it done * Addendum Note - Obi Collins RPh - 03/03/2023 3:02 PM EDTAddended by: OBI COLLINS on: 03/03/2023 03:02 PM Modules accepted: Orders * Telephone Encounter - Obi Collins RPh - 03/03/2023 2:59 PM EDTSigned Prescriptions: Disp Refills predniSONE 5 MG Oral Tablet (Deltasone) 90 Tab*1 Sig: TAKE ONE TABLET BY MOUTH EVERY DAYAuthorizing Provider: MARLYN BLACK User: OBI COLLINS------- * Telephone Encounter - Obi Collins [facility] - 03/03/2023 2:57 PM EDT Rheumatology: Refill Request(s) Per review of the refill parameters, Medication was refilled Obi Collins RPh [facility] Clinical Pharmacist Rheumatology Department 03/03/2023,2:57 PM * Telephone Encounter - Anna Marquez - 03/03/2023 9:57 AM EDTPending Prescriptions: Disp Refills predniSONE 5 MG Oral Tablet [Pharmacy Med *90 Tab*2 Sig: TAKE ONE TABLET BY MOUTH EVERY DAY * Telephone Encounter - Anna Marquez - 03/03/2023 9:55 AM EDT Did you pend patient's preferred pharmacy and medication before forwarding?yes Pharmacy: [facility]- [place] Pending Prescriptions: Disp Refills predniSONE 5 MG Oral Tablet (Deltasone) [*90 Tab*2 Sig: TAKE ONE TABLET BY MOUTH EVERY DAY Last Visit: 05/10/2019 (in office), Visit date not found (telemedicine) Next Visit: 08.10.23 If no future appointments scheduled, and last appointment is greater than a year ago, please schedule patient for a follow-up appointment Last date the medication was ordered: 10.01.22 Is this request for a controlled substance?No [...] Encounters Date Type Specialty Care Team Description 05/25/2023 Home Visit Family Medicine Angelia Da Silva[address] [place] [address] 06/03/2023 Office Visit Infectious Disease Ami Addison MD [address] [place], [place] [phone] 07/10/2023 Office Visit Family Medicine Leni Moyer, [address] [place] [address] 08/10/2023 Office Visit Rheumatology Marlyn Black MD [facility] [place] [address] Health Maintenance Due Date Last Done Comments Alpha-1 Antitrypsin 1963 DTaP,Tdap,and Td Vaccines (2 - Td or Tdap) 10/02/2020 10/02/2010, 10/31/2004 COVID-19 Vaccine (6 - Moderna series) 05/21/2022 03/26/2022, 05/06/2021, 05/06/2021, Additional history exists *BISPHONATE OR OTHER ACCEPTABLE MEDICATION NEEDED FOR OSTEOPOROSIS (REFER TO SMARTSET #1146) 06/28/2022 CKD PHOS USE SMARTSET 64374 04/15/2023 08/0 10/2021, 03/12/2021, 07/19/2019, Additional history exists Influenza Vaccine (FLU shot) (#1) 2023 06/14/2018, 06/22/2017, 08/12/2016, Additional history exists HbA1c 06/30/2023 12/29/2022, 05/16, 11/22/2021, Additional history exists DIABETES-EYE EXAM 07/03/2023 07/03/2022, , 04/12/2020, Additional history exists CKD HGB USE SMARTSET 67844 10/15/202310/15, 10/15/2022, 09/10/2022, Additional history exists GFR 11/13/2023 05/15/2023, 05/0 09/2022, 12/29/2022, Additional history exists Albumin/Creatinine Ratio 04/08/2024 023, 04/15/2022, 06/12/2021, Additional history exists Depression Screening, Annual for Pts 12 and Over 04/08/2024 04/08/2023 Diabetic Foot Exam 04/08/2024 04/08/2023, 0 06/10/2022, 06/12/2021, Additional history exists O2 ASSESSMENT COMPLETED IN PAST YEAR FOR COPD 05/15/2024 05/15/2023 DXA Scan 05/04/2025 05/04/2023, 03/14, 01/18/2013 Pneumococcal Vaccine: 65+ Years Completed 03/05/2017, 06/28/2015, 11/25/2011, Additional history exists Fecal Occult Blood Test Discontinued 09/23/19, 08/06/2018, 02/21/2004 VITAMIN D LEVEL ONCE IN A LIFETIME-USE SMARTSET# 20224 Completed 10/18/2020, 03/06/2020, 03/26/2018, Additional history exists [...] this encounter Medical Devices Implanted Type Area Tailings Man Device Identifier Shelf Expiration Date Model / Serial / Lot Lens 19.5 Sn60wf - [id number] - [id number] Implanted:Qty: 1 on 11/21/2016 by Faraz Jeffers MD at OR [facility] Left: Eye RAMÓN : SURGICAL 05/14/2021 SN60WF.1 95 / [id number] / Lens 19.5 Sn60wf - [id number] - [id number] Implanted:Qty: 1 on 04/22/2019 by Faraz Jeffers MD at OR [facility] Right: Eye RAMÓN : SURGICAL 07/14/2023 SN60WF.195 / [id number] / documented as of this encounter Procedures Procedure Name Priority Date/Time Associated Diagnosis Comments DEXA SCAN/BONE MINERAL AXIAL Routine 05/04/2023 2:24 PM EDT Encounter for long-term (current) use of medications Senile osteoporosis documented in this encounter Results * DEXA SCAN/BONE MINERAL AXIAL (05/04/2023 2:24 PM EDT) Anatomical Region Laterality Modality Dexa, Vertebra, Spine, Hip, Pelvis Nuclear Medicine Impressions 05/05/2023 7:36 AM EDT S: Fracture risk is based on current National Osteoporosis Foundation (www.nof.org) Clinicians Guide and [place] Association of Clinical Endocrinology (AACE) Guidelines (www.aace.com) and the application of current WHO FRAX tool (https://www.jered.ac.uk/FRAX/) as well as the 2017 [place] [employer] Glucocorticoid Induced Osteoporosis (GIOP) Guidelines (rheumatology.org/Practice-Quality/Clinical-Support/Sqbnoevs-Vpkzxujc-Nksaa lines) using Bone mineral density derived T-scores and clinical risk factors obtained from the patient questionnaire. 1. The fracture risk is HIGH (remains HIGH) 2. The quality of the examination is GOOD. The values at the lumbar spine are falsely elevated, and therefore the values at the hip/femoral neck are a better reflection of fracture risk in this patient. 3. No previous study for comparison. SUGGESTIONS: Information concerning the evaluation and treatment of osteoporosis can be found at the National Osteoporosis Foundation website (www.nof.org) and [place] Association of Clinical Endocrinology (AACE-www.aace.com). Osteoporosis prevention and treatment begins by modifying risk factors (such as smoking cessation and avoiding alcohol excess) and by participating in weight-bearing activities and exercise. Issues related to fall prevention and home safety should be addressed. Current NOF guidelines suggest 1200 to 1500 mg of calcium from diet and or supplemental sources. It is generally felt best to get calcium from one s diet. Calcium carbonate and calcium citrate are common calcium supplement choices in most local pharmacies. If the patient is taking a proton pump inhibitor, then calcium citrate should be the preferred supplement, if that is necessary. NOF guidelines for vitamin D are 800 to 1000 units of vitamin D3 daily. However, this may best be guided by measurement of 25-OH vitamin-D level, aiming for a level between 30 to 50 units (ng/ml). Additional information can be found at the FRAX website (https://www.jered.ac.uk/FRAX/), and the [place] College of Rheumatology website (https://www.rheumatology.org/Practice-Quality/Clinical-Support/Clinical-Pr actice-Guidelines). 1. Treatment with a bisphosphonate (such as Fosamax/Alendronate, Actonel/Risedronate, or Boniva/Ibandronate) should be considered. If the patient is unable to use an oral bisphosphonate, another agent such as IV bisphosphonates (Boniva/Ibandronate or Reclast/Zoledronic Acid ), Prolia/Denosumab Forteo/Teriparatide, Tymlos/Abaloparatide, Evenity/Romosozumab, or a selective estrogen receptor modulator (Evista/Raloxifene) should be considered. Secondary causes of low bone density should be considered. A 25-OH Vitamin D, serum calcium, and creatinine should be obtained. Other studies can be considered which would include a PTH, IEP, TSH, or Testosterone (in men). (For users of Omnistream, there is an osteoporosis Smart Set #1146). 2. A repeat study should be considered in 2 years, after therapy is started MARLYN BLACK M.D. ISCD Certified Clinical Film Processor Department of Rheumatology [facility] Narrative 05/05/2023 7:36 AM EDT Radiology, [facility] DXA Performed: 05/04/23 DXA Resulted: 05/05/2023 Belem Rodriguez Reason for testing: estrogen deficient woman at clinical risk , monitoring to assess efficacy of therapy Osteoporosis treatment (per questionnaire): A. Previous treatment: Fosamax for short period time, Prolia 1 dose in 2020, Actonel until 2021 B. Current treatment: NONE Major risk factors: current glucocorticoid use, rheumatoid arthritis Using a [employer] [place] images of the lumbar spine, left hip were obtained using DXA.. The bone mineral density and T scores [standard, young, normal, female population] are as follows: RESULTS: Lumbar spine: INVALID Left femoral neck: 0.658 gms/cm2 T-score: -1.7 Using the NOF/WHO FRAX calculator, the 10 year absolute risk for any major osteoporotic fracture is 24 % and the risk for hip fracture is 6.9 %. Marlyn Black MD RADIOLOGY ([facility]) documented in this encounter Visit Diagnoses Diagnosis Encounter for long-term (current) use of medications- Primary Encounter for long-term (current) use of other medications Senile osteoporosis documented in this encounter Advance Directives Latest [...] and were consensually agreed upon. Care Teams Mica Plate Layer Relationship Specialty Start Date End Date Leni Moyer[address] [place] [address] PCP - General Internal Medicine 11/18/17 documented as of this encounter
--- OUTSIDE RECORDS SUMMARY | 2023-09-05 18:44 | External Medical Summary ---
Author Name Unknown Address Unknown Organization K01:LAB[facility]AT[facility] [place] - [address] [place] [id number] Laboratory Report Ordering Provider Test Date Status ORACIO ALEJANDRO 05/15/2023 15:47:00 Maricarmen l Observation Date Value Abnormality Reference (Units ) Status BUN 05/15/2023 15:47:00 14 6-20 (mg/dL) Final Creatinine 05/15/2023 15:47:00 1.3 Above high normal 0.5-1.0 (mg/dL) Final Glomerular filtration rate/1.73 sq M.predicted [Volume Rate/Area] in Serum, Plasma or Blood by Creatinine-based formula (CKD-EPI) 05/15/2023 15:47:00 42 Below low normal >=60 (mL/min) Final eGFR is calculated based on the CKD-EPI 2020 equation SODIUM 05/15/2023 15:47:00 131 Below low normal 135 -146 (mmol/L) Final Potassium 05/15/2023 15:47:00 5.4 Above high normal 3. 5-5.1 (mmol/L) Final Cl 05/15/2023 15:47:00 95 Below low normal 98- 107 (mmol/L) Final CO2 05/15/2023 15:47:00 24 22-32 (mmo l/L) Final Anion gap 05/15/2023 15:47:00 12 7-15 (mmol /L) Final Glucose 05/15/2023 15:47:00 267 Above high normal 70 -120 (mg/dL) Final Albumin 05/15/2023 15:47:00 3.9 3.8-5.0 (g /dL) Final AST (Aspartate aminotransferase) 05/15/2023 15:47:00 49 Above high normal 10-35 (U/L) Final Alk Phos 05/15/2023 15:47:00 104 35-130 (U/ L) Final Bilirubin, Total 05/15/2023 15:47:00 0.4 <=1 .2 (mg/dL) Final Calcium 05/15/2023 15:47:00 10.0 8.4-10.2 ( mg/dL) Final Protein 05/15/2023 15:47:00 6.6 6.0-8.3 (g /dL) Final ALT (Alanine aminotransferase) 05/15/2023 15:47:00 32 10-35 (U/L) Renard albright Performing Location [facility] [place] - [address] [facility] [address]
--- OUTSIDE RECORDS SUMMARY | 2023-09-05 18:44 | External Medical Summary | Summary of Care ---
Author Name Unknown Organization [facility] Address [address] [facility] [address] Phone [phone] Care Team Providers Care Charging Machine Operator Name Role Phone Ernesto Harper DO Primary Care Provider [phone] Reason for Visit * Reason Comments Medication Refill Encounter Details Date Type Department Care Team Description 04/28/2023 Refill Family Medicine [address] [place] [address] Ernesto Harper DO [address] [place] [address] [place] [phone] Allergies Active Allergy Reactions Severity Noted Date Comments Influenza Virus Vac Live Quad High 2020 2 years ago, flown to [facility] Methotrexate 08/19/2013 pneumonitis Other Allergy (See Comments) Rash 012 Insecticides cause breathing problems Penicillins Hives 02/01/2001 Ranitidine Rash 07/14/2001 documented as of this encounter (statuses as of 04/30/2023) Medications Medication Sig Dispensed Refills Start Date End Date Status ONETOUCH ULTRASOFT LANCETS MISC Check BS twice daily. E 11.9 1 Box Dosing Unit 11 12/15/2016 Active Nystatin (NYSTOP) 207572 UNIT/GM powderIndications:Cu taneous candidiasis APPLY TOPICALLY TO AFFECTED AREA 3 TIMES A DAY. SPRINKLE OVER AFFECTED AREA. 15 g 2 12/15/2016 Active triamcinolone acetonide (ARISTOCORT) 0.1 % creamIndications:Pru ritic condition Apply topically to affected area 2 times a day. To affected area. 60 g 5 07/23/2017 Active Blood Glucose Monitoring Suppl ([facility] ULTRA SYSTEM) w/Device KIT Twice daily. Dx E 11.9 1 Kit 0 12/25/2017 Active Glucose Blood (Genius PackTOUCH ULTRA BLUE) STRPIndications:Type 2 diabetes mellitus with hemoglobin A1c goal of less than 7.0% ([facility]) Check BS twice daily E11.9 100 Strip 11 12/28/2017 Active betamethasone dipropionate (DIPROSONE) 0.05 % creamIndications:Donnie h and nonspecific skin eruption,Itching Apply topically to affected area 2 times a day. To affected area. 45 g 1 06/14/2018 Active Respiratory Therapy Supplies (NEBULIZER/TUBING/MO UTHPIECE) KIT [...] at bedtime. 30 Tablet 0 10/01/2022 Active Solifenacin Succinate 10 MG Oral Tablet (VESIcare) Take 1 Tablet by mouth in the morning. 90 Tablet 3 10/01/2022 Active Pantoprazole Sodium 40 MG Oral Tablet Delayed Release (Protonix)Indication s:Gastroesophageal reflux disease, unspecified whether esophagitis present 1 tablet by mouth daily 30 to 60 minutes before the first meal of the day 100 Tablet 3 10/01/2022 Active Montelukast Sodium 10 MG Oral Tablet (Singulair) Take 1 Tablet by mouth in the morning. 100 Tablet 3 10/01/2022 Active Clopidogrel Bisulfate [...] the morning. 30 Capsule 0 10/01/2022 Active Proventil HFA 108 (90 Base) MCG/ACT Inhalation Aerosol Solution Inhale 2 Puffs by mouth every 4 hours as needed for Wheezing. 8 g 0 10/01/2022 Active Potassium Chloride Lisette ER 20 MEQ Oral Tablet Extended Release Take 2 Tablets by mouth in the morning. 100 Tablet 3 11/26/2022 Active Zoster Vac Recomb Adjuvanted 50 MCG/0.5ML Intramuscular Suspension Reconstituted (Shingrix) Inject 0.5 mL into a large muscle now and repeat dose in 60 to 180 days Given at [place] 1 Each 1 12/29/2022 Active Vancomycin [...] DAY 90 Tablet 1 03/03/2023 4 Active Mirtazapine 15 MG Oral Tablet (Remeron) TAKE ONE TABLET BY MOUTH AT BEDTIME 100 Tablet 3 11/04/2022 4 Active Folic Acid 1 MG Oral [...] the morning. 90 Tablet 3 04/08/2023 Active Solifenacin Succinate 10 MG Oral Tablet (VESIcare) TAKE ONE TABLET BY MOUTH EVERY DAY IN THE MORNING 90 Tablet 3 04/30/2023 4 Active documented as of this encounter (statuses as of 04/30/2023) Active Problems Problem Noted Date Polyneuropathy associated [...] Coronary artery disease invo lving [place] coronary artery of [place] heart without angina pectoris 11/03/2019 Last Assessment [...] as of this encounter (statuses as of 04/30/2023) Resolved Problems Problem Noted Date Resolved Date [...] ICD-10 update of inactive term LOC PRIM [id number] 04/12/2003 04/15/20 17 PURE HYPERCHOLESTEROLEM 12/27/2001 08/03/20 [...] COPD, moderate 12/05/2014 CAD (coronary artery disease), [place] coronary a rtery 02/24/2022 Overview: duplicate documented as of this encounter (statuses as of 04/30/2023) Immunizations Name Administration Dates Next Due COVID-19 mRNA, LNP-s, No Pre serve, 2-Dose Series (Moderna) 05/06/2021,01/31/2021,01/02/2021 COVID-19, LNP-s, No Preserve , Pete-sucrose, Ages 12+ (Pfizer) 03/26/2022 Covid-19 Mrna, Lnp-s, No Pre serve, Booster (Moderna) 05/06/2021 PPD 11/25/2011 Pneumococcal Conjugate Vacc, 13 Valent (Prevnar) 06/28/2015 Pneumococcal Polysaccharide PPV23 (Pneumovax) 03/05/2017,11/25/2011,08/05/2006 Seasonal Influenza, Quadriva lent, No Preserve, 6 Mons & Above, IM 06/14/2018,06/22/2017 Seasonal Influenza, Quadriva lent, No Preserve, [...] Telephone Encounter - Ernesto Harper DO - 04/30/2023 2:32 PM EDT It appears she has been on this for several years - will send refill. * Telephone Encounter - Ernesto Harper DO - 04/30/2023 2:31 PM EDTSigned Prescriptions: Disp Refills Solifenacin Succinate 10 MG Oral Tablet (V*90 Tab*3 Sig: TAKE ONE TABLET BY MOUTH EVERY DAY IN THE MORNING Authorizing Provider: ERNESTO HARPER * Telephone Encounter - Saba Gonzalez RN - 04/29/2023 2:07 PM EDTPending Prescriptions: Disp Refills Solifenacin Succinate 10 MG Oral Tablet (V*90 Tab*3 Sig: TAKE ONE TABLET BY MOUTH EVERY DAY IN THE MORNING * Telephone Encounter - Saba Gonzalez RN - 04/29/2023 2:05 PM EDT Provider to address: see below Reason for Call: Medication Refill Contact: Telephone Call Contact Type: Medication Outcome: I attempted to called Pt's , but was unable to leave a message for pt to call us back( Mailbox is full) Total Time including non face to face (minutes): 10 * Telephone Encounter - Ernesto Harper DO - 04/29/2023 1:39 PM EDTPending Prescriptions: Disp Refills Solifenacin Succinate 10 MG Oral Tablet (V*90 Tab*3 Sig: TAKE ONE TABLET BY MOUTH EVERY DAY IN THE MORNING * Telephone Encounter - Ernesto Almonte DO João - 04/29/2023 1:38 PM EDT Please call patient's Florencio to find out if she is still taking this before I send a refill in. * Telephone Encounter - Brant Jain [facility] - 04/29/2023 11:17 AM EDTPending Prescriptions: Disp Refills Solifenacin Succinate 10 MG Oral Tablet (V*90 Tab*3 Sig: TAKE ONE TABLET BY MOUTH EVERY DAY IN THE MORNING * Telephone Encounter - Brant Jain [facility] - 04/29/2023 11:17 AM EDT [facility] is currently not authorized to approve refills for the pended medication(s) per refill protocol. Please approve if appropriate. Thanks, Brant Jain Pharm.D. Clinical Pharmacist [facility] [phone] 04/29/2023, 11:17 AM Did you pend patient's preferred pharmacy and medication before forwarding?yes Pharmacy: [facility] Pending Prescriptions: Disp Refills Solifenacin Succinate 10 MG Oral Tablet (*90 Tab*3 Sig: TAKE ONE TABLET BY MOUTH EVERY DAY IN THE MORNING Last Visit: 04/08/2023 (in office), Visit date not found (telemedicine) Next Visit: 07/10/2023 If no future appointments scheduled, and last appointment is greater than a year ago, please schedule patient for a follow-up appointment Last date the medication was ordered: 08/05/2022 Is this request for a controlled substance?No [...] Encounters Date Type Specialty Care Team Description 05/04/2023 Imaging Radiology 06/03/2023 Office Visit Infectious Disease Ami Addison MD [address] [facility] [place] [address] 07/10/2023 Office Visit Family Medicine Ernesto Harper[address] [place] [phone] 08/10/2023 Office Visit Rheumatology Brandon Lewis MD [facility] [place] [address] Health Maintenance Due Date Last Done Comments Alpha-1 Antitrypsin 1963 DTaP,Tdap,and Td Vaccines (2 - Td or Tdap) 10/02/2020 10/02/2010, 10/31/2004 DXA Scan 03/26/2022 03/26/2020, 01/18/2013 COVID-19 Vaccine (6 - Moderna series) 05/21/2022 03/26/2022, 05/06/2021, 05/06/2021, Additional history exists *BISPHONATE OR OTHER ACCEPTABLE MEDICATION NEEDED FOR OSTEOPOROSIS (REFER TO SMARTSET #1146) 06/28/2022 CKD PHOS USE SMARTSET 55953 04/15/2023 08/0 10/2021, 03/12/2021, 07/19/2019, Additional history exists Influenza Vaccine (FLU shot) (#1) 2023 06/14/2018, 06/22/2017, 08/12/2016, Additional history exists HbA1c 06/30/2023 12/29/2022, 05/16, 11/22/2021, Additional history exists DIABETES-EYE EXAM 07/03/2023 07/03/2022, , 04/12/2020, Additional history exists GFR 07/15/2023 01/12/2023, 12/13, 10/15/2022, Additional history exists CKD HGB USE SMARTSET 48233 10/15/202310/15, 10/15/2022, 09/10/2022, Additional history exists Albumin/Creatinine Ratio 04/08/2024 023, 04/15/2022, 06/12/2021, Additional history exists DIABETES-FOOT EXAM 04/08/2024 04/08/2023, 0 06/10/2022, 06/12/2021, Additional history exists Depression Screening, Annual for Pts 12 and Over 04/08/2024 04/08/2023 O2 ASSESSMENT COMPLETED IN PAST YEAR FOR COPD 04/08/2024 04/08/2023 Pneumococcal Vaccine: 65+ Years Completed 03/05/2017, 06/28/2015, 11/25/2011, Additional history exists Fecal Occult Blood Test Discontinued 09/23/19, 08/06/2018, 02/21/2004 VITAMIN D LEVEL ONCE IN A LIFETIME-USE SMARTSET# 53971 Completed 10/18/2020, 03/06/2020, 03/26/2018, Additional history exists [...] this encounter Medical Devices Implanted Type Area Yarrow Gatherer Device Identifier Shelf Expiration Date Model / Serial / Lot Lens 19.5 Sn60wf - [id number] - [id number] Implanted:Qty: 1 on 11/21/2016 by Faraz Jeffers MD at OR [facility] Left: Eye RAMÓN : SURGICAL 05/14/2021 SN60WF.1 95 / [id number] / Lens 19.5 Sn60wf - [id number] - [id number] Implanted:Qty: 1 on 04/22/2019 by Faraz Jeffers MD at OR [facility] Right: Eye RAMÓN : SURGICAL 07/14/2023 SN60WF.195 / [id number] / documented as of this encounter [...] and were consensually agreed upon. Care Teams Charging Machine Operator Relationship Specialty Start Date End Date Ernesto Harper, [address] [place] [address] PCP - General Internal Medicine 11/18/17 documented as of this encounter
--- OUTSIDE RECORDS SUMMARY | 2023-09-05 18:44 | External Medical Summary | Summary of Care ---
Author Name Unknown Organization [facility] Address [address] [place] [place] [facility] [place] [address] Phone [phone] Care Team Providers Care Greenhouse Technician Name Role Phone Leni Moyer DO Primary Care Provider Encounter Details Date Type Department Care Team Description 05/11/2023 Orders Only Family Medicine [address] [address] Leni Moyer [address] [place] [address] Allergies Active Allergy Reactions Severity Noted Date Comments Influenza Virus Vac Live Quad High 2020 2 years ago, flown to [facility] Methotrexate 08/19/2013 pneumonitis Other Allergy (See Comments) Rash 012 Insecticides cause breathing problems Penicillins Hives 02/01/2001 Ranitidine Rash 07/14/2001 documented as of this encounter (statuses as of 05/11/2023) Medications Medication Sig Dispensed Refills Start Date End Date Status ONETOUCH ULTRASOFT LANCETS MISC Check BS twice daily. E 11.9 1 Box Dosing Unit 11 12/15/2016 Active Nystatin (NYSTOP) 625019 UNIT/GM powderIndications:Cu taneous candidiasis APPLY TOPICALLY TO AFFECTED AREA 3 TIMES A DAY. SPRINKLE OVER AFFECTED AREA. 15 g 2 12/15/2016 Active triamcinolone acetonide (ARISTOCORT) 0.1 % creamIndications:Pru ritic condition Apply topically to affected area 2 times a day. To affected area. 60 g 5 07/23/2017 Active Blood Glucose Monitoring Suppl (AskYou ULTRA SYSTEM) w/Device KIT Twice daily. Dx E 11.9 1 Kit 0 12/25/2017 Active Glucose Blood (TalkMarketsTOUCH ULTRA BLUE) STRPIndications:Type 2 diabetes mellitus with hemoglobin A1c goal of less than 7.0% ([facility]) Check BS twice daily E11.9 100 Strip [...] in 60 to 180 days Given at [place] 1 Each 1 12/29/2022 Active Vancomycin [...] as of this encounter (statuses as of 05/11/2023) Active Problems Problem Noted Date Polyneuropathy associated [...] Age-related osteoporosis without current pathological fracture 06/08/2020 long chain quiller tender current use of therapeutic elysia g 03/06/2020 Chronic right-sided heart failure 2019 Major depressive disorder, recurrent epi sode, in partial remission 11/03/2019 Last Assessment & Plan: Managed well with Cymbalta 60 mg daily Gastroesophageal reflux disease without esophagitis 11/03/2019 Last Assessment & Plan: Managed with pantoprazole 40 mg daily Coronary artery disease invo lving [place] coronary artery of [place] heart without angina pectoris 11/03/2019 Last Assessment [...] as of this encounter (statuses as of 05/11/2023) Resolved Problems Problem Noted Date Resolved Date [...] ICD-10 update of inactive term LOC PRIM [id number] 04/12/2003 04/15/20 17 PURE HYPERCHOLESTEROLEM 12/27/2001 08/03/20 [...] COPD, moderate 12/05/2014 CAD (coronary artery disease), [place] coronary a rtery 02/24/2022 Overview: duplicate documented as of this encounter (statuses as of 05/11/2023) Immunizations Name Administration Dates Next Due COVID-19 [...] Infectious Disease Ami Addison MD [address] [facility] [place] [address] 07/10/2023 Office Visit Family Medicine Leni Moyer[address] [place] [phone] 08/10/2023 Office Visit Rheumatology Brandon Lewis MD [facility], [place] [address] Health Maintenance Due Date Last Done Comments Alpha-1 Antitrypsin 1963 DTaP,Tdap,and Td Vaccines (2 - Td or Tdap) 10/02/2020 10/02/2010, 10/31/2004 COVID-19 Vaccine (6 - Moderna series) 05/21/2022 03/26/2022, 05/06/2021, 05/06/2021, Additional history exists *BISPHONATE OR OTHER ACCEPTABLE MEDICATION NEEDED FOR OSTEOPOROSIS (REFER TO SMARTSET #1146) 06/28/2022 CKD PHOS USE SMARTSET 59414 04/15/2023 08/0 10/2021, 03/12/2021, 07/19/2019, Additional history exists Influenza Vaccine (FLU shot) (#1) 2023 06/14/2018, 06/22/2017, 08/12/2016, Additional history exists HbA1c 06/30/2023 12/29/2022, 05/16, 11/22/2021, Additional history exists DIABETES-EYE EXAM 07/03/2023 07/03/2022, , 04/12/2020, Additional history exists GFR 07/15/2023 01/12/2023, 12/13, 10/15/2022, Additional history exists CKD HGB USE SMARTSET 71820 10/15/202310/15, 10/15/2022, 09/10/2022, Additional history exists Albumin/Creatinine [...] D LEVEL ONCE IN A LIFETIME-USE SMARTSET# 39002 Completed 10/18/2020, 03/06/2020, 03/26/2018, Additional history exists [...] this encounter Medical Devices Implanted Type Area Injection Molding Operator Device Identifier Shelf Expiration Date Model / Serial / Lot Lens 19.5 Sn60wf - [id number] - [id number] Implanted:Qty: 1 on 11/21/2016 by Faraz Jeffers MD at OR [facility] Left: Eye RAMÓN : SURGICAL 05/14/2021 SN60WF.1 95 / [id number] 2 / Lens 19.5 Sn60wf - [id number] - [id number] Implanted:Qty: 1 on 04/22/2019 by Faraz Jeffers MD at OR [facility] Right: Eye RAMÓN : SURGICAL 07/14/2023 SN60WF.195 / [id number] / documented as of this encounter Procedures Procedure Name Priority Date/Time Associated Diagnosis Comments OUTSIDE LAB-CORONAVIRUS (COVID-19) Routine 05/08/2023 documented in this encounter Results * OUTSIDE LAB-CORONAVIRUS (COVID-19) (05/08/2023) [id number] E LAB NEGATIVE NEGATIVE OUTSIDE LAB (SEE SCANNED REPORT) 05/08/2023 History Per Patient LABORATORY OUTSIDE LAB (SEE SCANNED REPORT) documented in this encounter Advance Directives Latest [...] and were consensually agreed upon. Care Teams Greenhouse Technician Relationship Specialty Start Date End Date Leni Moyer, [address] [place] [address] PCP - General Internal Medicine 11/18/17 documented as of this encounter
--- OUTSIDE RECORDS SUMMARY | 2023-09-05 18:44 | External Medical Summary | Summary of Care ---
Author Name Unknown Organization [facility] Address [address] [facility] [place] [address] Phone [phone] Care Team Providers Care Fifth Grade Teacher Name Role Phone Leni Moyer Primary Care Provider Reason for Visit * Reason Onset Date Comments Test Results 05/20/2023 Encounter Details Date Type Department Care Team Description 05/20/[address] [address] Keily Reese MD [address] [place] [address] [place] [address] Test Results Allergies Active Allergy Reactions Severity Noted Date Comments Influenza Virus Vac Live Quad High 2020 2 years ago, flown to [facility] Methotrexate 08/19/2013 pneumonitis Other Allergy (See Comments) Rash 012 Insecticides cause breathing problems Penicillins Hives 02/01/2001 Ranitidine Rash 07/14/2001 documented as of this encounter (statuses as of 05/20/2023) Medications Medication Sig Dispensed Refills Start Date End Date Status ONETOUCH ULTRASOFT LANCETS MISC Check BS twice daily. E 11.9 1 Box Dosing Unit 11 12/15/2016 Active Nystatin (NYSTOP) 942684 UNIT/GM powderIndications:Cu taneous candidiasis APPLY TOPICALLY TO [...] Reported on 05/14/2023 Blood Glucose Monitoring Suppl ([employer] ULTRA SYSTEM) w/Device KIT Twice daily. Dx E 11.9 1 Kit 0 12/25/2017 Active Glucose Blood (ChinaCacheTOUCH ULTRA BLUE) STRPIndications:Type 2 diabetes mellitus with [...] in 60 to 180 days Given at [place] 1 Each 1 12/29/2022 Active Vancomycin [...] as of this encounter (statuses as of 05/20/2023) Active Problems Problem Noted Date Polyneuropathy associated [...] mg daily Coronary artery disease invo lving [place] coronary artery of [place] heart without angina pectoris 11/03/2019 Last Assessment [...] as of this encounter (statuses as of 05/20/2023) Resolved Problems Problem Noted Date Resolved Date [...] ICD-10 update of inactive term LOC PRIM [id number] 04/12/2003 04/15/20 17 PURE HYPERCHOLESTEROLEM 12/27/2001 08/03/20 [...] COPD, moderate 12/05/2014 CAD (coronary artery disease), [place] coronary a rtery 02/24/2022 Overview: duplicate documented as of this encounter (statuses as of 05/20/2023) Immunizations Name Administration Dates Next Due COVID-19 [...] Telephone Encounter - Keily Reese MD - 05/20/2023 4:06 PM EDT Spoke to pt's - pt does not take any K+ supplement - decrease food that is high in potassium --- repeat BMP in 1 week documented in this encounter Plan of Treatment Upcoming Encounters Date Type Specialty Care Team Description 05/25/2023 Home Visit Family Medicine Avinash Angelia, [address] [place] [address] 06/03/2023 Office Visit Infectious Disease Ami Addison MD [address] [place] [address] 07/10/2023 Office Visit Family Medicine Leni Moyer [address] [place] [address] 08/10/2023 Office Visit Rheumatology Brandon Lewis MD [facility] [place] [address] Scheduled Orders Name Type Priority Associated Diagnoses Orde r Schedule BASIC METABOLIC PANEL Lab Routine Serum potassium elevated Expected: 05/27/2023, Expires: 05/20/2024 Health Maintenance Due Date Last Done Comments Alpha-1 Antitrypsin 1963 DTaP,Tdap,and Td Vaccines (2 - Td or Tdap) 10/02/2020 10/02/2010, 10/31/2004 COVID-19 Vaccine (6 - Moderna series) 05/21/2022 03/26/2022, 05/06/2021, 05/06/2021, Additional history exists *BISPHONATE OR OTHER ACCEPTABLE MEDICATION NEEDED FOR OSTEOPOROSIS (REFER TO SMARTSET #1146) 06/28/2022 CKD PHOS USE SMARTSET 57664 04/15/2023 08/0 10/2021, 03/12/2021, 07/19/2019, Additional history exists Influenza Vaccine (FLU shot) (#1) 2023 06/14/2018, 06/22/2017, 08/12/2016, Additional history exists HbA1c 06/30/2023 12/29/2022, 05/16, 11/22/2021, Additional history exists DIABETES-EYE EXAM 07/03/2023 07/03/2022, , 04/12/2020, Additional history exists CKD HGB USE SMARTSET 81996 10/15/202310/15, 10/15/2022, 09/10/2022, Additional history exists GFR [...] D LEVEL ONCE IN A LIFETIME-USE SMARTSET# 13623 Completed 10/18/2020, 03/06/2020, 03/26/2018, Additional history exists [...] this encounter Medical Devices Implanted Type Area Vehicle Mechanic Device Identifier Shelf Expiration Date Model / Serial / Lot Lens 19.5 Sn60wf - [id number] - [id number] Implanted:Qty: 1 on 11/21/2016 by Faraz Jeffers MD at OR [facility] Left: Eye RAMÓN : SURGICAL 05/14/2021 SN60WF.1 95 / [id number] 2 / Lens 19.5 Sn60wf - [id number] - [id number] Implanted:Qty: 1 on 04/22/2019 by Faraz Jeffers MD at OR [facility] Right: Eye RAMÓN : SURGICAL 07/14/2023 SN60WF.195 / [id number] / documented as of this encounter Visit Diagnoses Diagnosis Serum potassium elevated- Primary Hyperpotassemia documented in this encounter Advance Directives Latest [...] and were consensually agreed upon. Care Teams Fifth Grade Teacher Relationship Specialty Start Date End Date Leni Moyer[address] [place] [address] PCP - General Internal Medicine 11/18/17 documented as of this encounter
--- OUTSIDE RECORDS SUMMARY | 2023-09-05 18:44 | External Medical Summary | Summary of Care ---
Author Name Unknown Organization [facility] Address [address] [place] [address] Phone [phone] Care Team Providers Care Marketing Intern Name Role Phone Leni Moyer DO Primary Care Provider [phone] Reason for Referral * Evaluate & Treat - Unlimited Visits (Within 3 days (urgent)) - Authorized Specialty Diagnoses / Procedures Referred By Erwin velez Referred To Contact Repairer Wood Furniture Diagnoses Hospital discharge follow-up Leni Moyer DO [address] [place], [place] [address] [address] Referral ID Status Reason Start Date Expiration Date Visits Requested Visits Authorized [id number] Authorized Specialty Services Required 05/14/2023 1 1 Question Answer Referral Priority Within 3 days (urgent) Program Type Case Management Complex Case Management [facility] Device(s) Requested Other (See Comment) - post discharge IVR calls Alarm Settings Standard per protocol Any specialized instructions wkly x 4, on at 3 PM, starting 05/21/23. [phone]. Thank you. Encounter Details Date Type Department Care Team Description 05/14/2023 Repairer Wood FurnitureManager Marketing Sales Medicine [address] [phone] Yvonne Cherry, RN [address] [place] [address] Medical home patient encounter*; Hospital discharge follow-up; UTI (urinary tract infection); History of ESBL Klebsiella pneumoniae infection; Metabolic encephalopathy; Coronary artery disease involving [place] coronary artery of [place] heart without angina pectoris; Type 2 diabetes mellitus with hemoglobin A1c goal of less than 8.0% ([facility]); Advanced care planning/counseling discussion Allergies Active Allergy [...] Dosing Unit 11 12/15/2016 Active Nystatin (NYSTOP) 972087 UNIT/GM powderIndications:C utaneous candidiasis APPLY TOPICALLY TO AFFECTED AREA 3 TIMES A DAY. SPRINKLE OVER AFFECTED AREA. 15 g 2 12/15/2016 Active triamcinolone acetonide (ARISTOCORT) 0.1 % creamIndications:Pr uritic condition Apply topically to affected area 2 times a day. To affected area. 60 g 5 07/23/2017 Active Additional Information Patient taking differently:TopicalBID PRN, To affected area., Informant: At Discharge, Reported on 05/14/2023 Blood Glucose Monitoring Suppl (The Shared WebUCH ULTRA SYSTEM) w/Device KIT Twice daily. Dx [...] 60 to 180 days Given at [facility] 1 Each 1 12/29/2022 Active [...] 90 Tablet 3 04/30/2023 04/29/20 24 Active Ciprofloxacin HCl 500 MG Oral Tablet (Cipro) Take 1 Tablet by mouth in the morning and 1 Tablet before bedtime. 0 Active Albuterol Sulfate (2.5 MG/3ML) 0.083% Inhalation Nebulization Solution (Proventil) Inhale 1 Vial via nebulizer. Use as directed, if needed, for shortness of breath or wheezing 0 Active Solifenacin Succinate 10 MG Oral Tablet (VESIcare) Take 1 Tablet by mouth in the morning. 90 Tablet 3 10/01/2022 05/14/20 23 Discontinu ed(Medicat ion List Clean Up) Proventil HFA 108 (90 Base) MCG/ACT Inhalation Aerosol Solution Inhale 2 Puffs by mouth every 4 hours as needed for Wheezing. 8 g 0 10/01/2022 05/14/20 23 Discontinu ed(Medicat ion List Clean Up) Potassium Chloride Lisette ER 20 MEQ Oral Tablet Extended Release Take 2 Tablets by mouth in the morning. 100 Tablet 3 11/26/2022 05/14/20 23 Discontinu ed(Medicat ion List Clean Up) Mirtazapine 15 MG Oral Tablet (Remeron) TAKE ONE TABLET BY MOUTH AT BEDTIME 100 Tablet 3 11/04/2022 05/14/20 23 Discontinu ed(Medicat ion List Clean Up) documented as of this encounter (statuses as of 05/15/2023) Active Problems Problem Noted Date Polyneuropathy associated with underlyin g disease 10/15/2022 Paroxysmal atrial fibrillation History of 2019 novel coronavirus diseas e (COVID-19) 09/18/2022 DNR (do not resuscitate) 09/17/2022 H/O Clostridium difficile infection 08/15 Primary open angle glaucoma (POAG) of froilan th eyes, mild stage 04/02/2022 History of OR (myocardial infarction) Neutropenia 04/02/2022 Last Assessment & [...] Age-related osteoporosis without current pathological fracture 06/08/2020 prison current use of therapeutic elysia g 03/06/2020 Chronic right-sided heart failure 2019 Major depressive disorder, recurrent epi sode, in partial remission 11/03/2019 Last Assessment & Plan: Managed well with Cymbalta 60 mg daily Gastroesophageal reflux disease without esophagitis 11/03/2019 Last Assessment & Plan: Managed with pantoprazole 40 mg daily Coronary artery disease invo lving [place] coronary artery of [place] heart without angina pectoris 11/03/2019 Last Assessment [...] ICD-10 update of inactive term LOC PRIM [id number] 04/12/2003 04/15/20 17 PURE HYPERCHOLESTEROLEM 12/27/2001 08/03/20 [...] COPD, moderate 12/05/2014 CAD (coronary artery disease), [place] coronary a rtery 02/24/2022 Overview: duplicate documented as of this encounter (statuses as of 05/15/2023) Immunizations Name Administration Dates Next Due COVID-19 mRNA, LNP-s, No Pre serve, 2-Dose Series (Moderna) 05/06/2021,01/31/2021,01/02/2021 COVID-19, LNP-s, No Preserve , Pete-sucrose, Ages 12+ ([employer]) 03/26/2022 Covid-19 Mrna, Lnp-s, No Pre serve, [...] Progress Notes * Yvonne Cherry RN - 05/14/2023 4:18 PM EDT Repairer Wood Furniture Progress Note: Date: 05/14/23 Assigned Patient Tier: [...] broke down, and he is 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 Too high for patient to get into. [...] No Is this call for a hospital, mcc or rehab facility discharge to home? Yes - patient was inpatient at [facility] from 05/08/23 to 05/13/23. Discharge dx: UTI [...] of breath/cough or edema/swelling and Referral to: [facility] for home visit, home safety assessment, bottles [...] parties will occur this week: [employer] Manufacturing Development Engineer and PCP office visit as additional contacts [...] Individual(s) present for conversation: Spouse Decisions Synopsis [employer] Most Recent Value Past ~10 years 10/17/2022 [...] chooses Lab draws 04/22/2022 Additional Comments Synopsis [employer] Most Recent Value Past ~10 years 05/14/2023 [...] Discerning What Matters Most to the Patient: Manisha Sharma Most Recent Value Past ~10 years 05/14/2023 [...] Maintain current functional abilities;Avoid further hospitalization;Avoid the mcc 06/04/2022 The patient defines LIVING WELL as: being able to get out of the house more and stay in my own homewith my 06/04/2022 The patient's FEARS/WORRIES about illness are: Being a burden to family;Going to a mcc 06/04/2022 "Being a vegetable", patient defines as: being on mcc life suppor 04/22/2022 The patient considers these as 'UNACCEPTABLE OUTCOMES': "Being a vegetable" (define below) 05/14/2023 "Being a vegetable" (define below) Source: Content from [employer] [facility] Aligning Care With What Matters Most: Manisha [employer] Most Recent Value Past ~10 years 10/17/2022 12:36 Aligning Care With What Matters Most Interventions/Choices: CPR 10/17/2022 CPR Rationale for Decisions Source: Content from [employer] Program 0 minutes spent in direct [id number] discussion today, Yvonne Cherry RN documented in this encounter Plan of Treatment Upcoming Encounters Date Type Specialty Care Team Description 05/15/2023 Office Visit Family Medicine Keily Reese MD [address] [place] [address] [place] [address] 06/03/2023 Office Visit [facility] Disease [facility] [address] [facility] [address] 07/10/2023 Office Visit Family Medicine Leni Moyer DO [address] [place] [address] [place] [address] 08/10/2023 Office Visit Rheumatology Brandon Lewis MD [address] [facility] [place] [address] Scheduled Referrals Name Type Priority Associated Diagnoses [...] SMARTSET #1146) 06/28/2022 CKD PHOS USE SMARTSET 05083 04/15/2023 08/0 10/2021, 03/12/2021, 07/19/2019, Additional history exists Influenza Vaccine (FLU shot) (#1) 2023 06/14/2018, 06/22/2017, 08/12/2016, Additional history exists HbA1c 06/30/2023 12/29/2022, 05/16, 11/22/2021, Additional history exists DIABETES-EYE EXAM 07/03/2023 07/03/2022, , 04/12/2020, Additional history exists GFR 07/15/2023 01/12/2023, 12/13, 10/15/2022, Additional history exists CKD HGB USE SMARTSET 93471 10/15/202310/15, 10/15/2022, 09/10/2022, Additional history exists Albumin/Creatinine [...] D LEVEL ONCE IN A LIFETIME-USE SMARTSET# [id number] Completed 10/18/2020, 03/06/2020, 03/26/2018, Additional history exists [...] encounter Medical Devices Implanted Type Area Hot Car Charger Device Identifier Shelf Expiration Date Model / Serial / Lot Lens 19.5 Sn60wf - [id number] - [id number] Implanted:Qty: 1 on 11/21/2016 by Faraz Jeffers MD at [facility] Left: Eye RAMÓN : SURGICAL 05/14/2021 SN60WF.1 95 / [id number] / Lens 19.5 Sn60wf - [id number] - [id number] Implanted:Qty: 1 on 04/22/2019 by Faraz Jeffers MD at OR [facility] Right: Eye RAMÓN : SURGICAL 07/14/2023 [id number].[id number] / [id number] / documented as of this encounter Visit Diagnoses Diagnosis Medical home patient encounter- Primary Other specified examination Hospital discharge follow-up Other follow-up examination UTI (urinary tract infection) Urinary tract infection, site not specified History of ESBL Klebsiella pneumoniae infection Personal history of other infectious and parasitic disease Metabolic encephalopathy Coronary artery disease involving [place] coronary artery of [place] heart without angina pectoris Type 2 diabetes mellitus with hemoglobin A1c goal of less than 8.0% ([facility]) Advanced care planning/counseling discussion Other specified counseling [...] were consensually agreed upon. Care Teams Marketing Intern Relationship Specialty Start Date End Date Leni Moyer[address] [place] [address] PCP - General Internal Medicine 11/18/17 documented as of this encounter
--- OUTSIDE RECORDS SUMMARY | 2023-09-05 18:44 | External Medical Summary | Summary of Care ---
Author Name Unknown Organization [facility] Address [address] [facility] [place] [address] Phone [phone] Care Team Providers Care Property Claims Manager Name Role Phone Leni Moyer Primary Care Provider Reason for Visit * Reason Comments Acute Encounter Details Date Type Department Care Team Description 05/08/2023 Office Visit Family Medicine [address] [phone] Lary Landaverde PA-C [address] [place] [address] [place] [phone] Fever, unspecified fever cause*; Confusion Allergies Active Allergy Reactions Severity Noted Date Comments Influenza Virus Vac Live Quad High 2020 2 years ago, flown to [facility] Methotrexate 08/19/2013 pneumonitis Other Allergy (See Comments) Rash 012 Insecticides cause breathing problems Penicillins Hives 02/01/2001 Ranitidine Rash 07/14/2001 documented as of this encounter (statuses as of 05/08/2023) Medications Medication Sig Dispensed Refills Start Date End Date Status ONETOUCH ULTRASOFT LANCETS MISC Check BS twice daily. E 11.9 1 Box Dosing Unit 11 12/15/2016 Active Nystatin (NYSTOP) 315555 UNIT/GM powderIndications:Cu taneous candidiasis APPLY TOPICALLY TO AFFECTED AREA 3 TIMES A DAY. SPRINKLE OVER AFFECTED AREA. 15 g 2 12/15/2016 Active triamcinolone acetonide (ARISTOCORT) 0.1 % creamIndications:Pru ritic condition Apply topically to affected area 2 times a day. To affected area. 60 g 5 07/23/2017 Active Blood Glucose Monitoring Suppl (Cuedd SYSTEM) w/Device KIT Twice daily. 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 g 03/06/2020 Chronic right-sided heart failure 2019 Major depressive disorder, recurrent epi sode, in partial remission 11/03/2019 Last Assessment & Plan: Managed well with Cymbalta 60 mg daily Gastroesophageal reflux disease without esophagitis 11/03/2019 Last Assessment & Plan: Managed with pantoprazole 40 mg daily Coronary artery disease invo lving [place] coronary artery of [place] heart without angina pectoris 11/03/2019 Last Assessment [...] as of this encounter (statuses as of 05/08/2023) Resolved Problems Problem Noted Date Resolved Date [...] ICD-10 update of inactive term LOC PRIM [id number] 04/12/2003 04/15/20 17 PURE HYPERCHOLESTEROLEM 12/27/2001 08/03/20 [...] COPD, moderate 12/05/2014 CAD (coronary artery disease), [place] coronary a rtery 02/24/2022 Overview: duplicate documented as of this encounter (statuses as of 05/08/2023) Immunizations Name Administration Dates Next Due COVID-19 mRNA, LNP-s, No Pre serve, 2-Dose Series (Moderna) 05/06/2021,01/31/2021,01/02/2021 COVID-19, LNP-s, No Preserve , Pete-sucrose, Ages 12+ ([employer] [employer]) 03/26/2022 Covid-19 Mrna, Lnp-s, No Pre serve, [...] Sign Reading Time Taken Comments Blood Pressure 124/70 05/08/2023 9:12 AM EDT Pulse 110 05/08/2023 9:12 AM EDT Temperature 38.9 C (102 F) 05/08/2023 9:12 AM EDT Respiratory Rate 16 05/08/2023 9:12 AM EDT Oxygen Saturation 95% 05/08/2023 9:12 AM EDT Inhaled Oxygen Concentration - - Weight 56.2 kg (124 lb) 05/08/2023 9:12 AM EDT Height - - Body Mass Index 25.92 12/29/2022 10:43 AM EDT documented in this encounter Progress Notes * Lary Landaverde PA-C - 05/08/2023 9:14 AM EDT Nursing Notes: Karla Delcid, ANGELA 05/08/23 0915 Sign at exiting of workspace Fevers for at least a month- over 103 at times. Major memory changes- not normal- speaks with mother, other people who are not there that she doesn't even know, thinks she's in a different home, saying very strange & off the wall things Incontinent- cannot hold urine at all She just asked if there was pepperoni on the floor of the exam room. Pt here today with high fevers, confusion, dizziness, headaches, fatigue, speaking with people. She is saying very strange things. This has been going on for about a month but getting worse. Review of patient's allergies indicates: Allergen Reactions Influenza Virus Vaccine [Influenza Virus Vac Live Quad] 2 years ago, flown to [facility] Methotrexate pneumonitis Other Allergy (See Comments) Rash Insecticides cause breathing problems Penicillins Hives Ranitidine Rash Current Outpatient Medications Medication Sig Dispense Refill ONETOUCH ULTRASOFT LANCETS MISC Check BS twice daily. E 11.9 1 Box Dosing Unit 11 Nystatin (NYSTOP) 814375 UNIT/GM powder APPLY TOPICALLY TO AFFECTED AREA 3 TIMES A DAY. SPRINKLE OVER AFFECTED AREA. 15 g 2 triamcinolone acetonide (ARISTOCORT) 0.1 % cream Apply topically to affected area 2 times a day. Toaffected area. 60 g 5 Blood Glucose Monitoring Suppl (ONETOUCH ULTRA SYSTEM) w/Device KIT Twice daily. Dx E 11.9 1 Kit 0 Glucose Blood (ONETOUCH ULTRA BLUE) STRP Check BS twice daily E11.9 100 Strip 11 betamethasone dipropionate (DIPROSONE) 0.05 % cream Apply topically to affected area 2 times a day.To affected area. 45 g 1 Respiratory Therapy Supplies (NEBULIZER/TUBING/MOUTHPIECE) [...] by mouth at bedtime. 30 Tablet 0 Solifenacin Succinate 10 MG Oral Tablet (VESIcare) Take 1 Tablet by mouth in the morning. 90 Tablet3 Pantoprazole Sodium 40 MG Oral Tablet Delayed Release (Protonix) 1 tablet by mouth daily 30 to 60 minutes before the first meal of the day 100 Tablet 3 Montelukast Sodium 10 MG Oral Tablet (Singulair) Take 1 Tablet by mouth in the morning. 100 Tablet 3 Clopidogrel Bisulfate 75 MG [...] mouth in the morning. 30 Capsule 0 Proventil HFA 108 (90 Base) MCG/ACT Inhalation Aerosol Solution Inhale 2 Puffs by mouth every 4 hours as needed for Wheezing. 8 g 0 Potassium Chloride Lisette ER 20 MEQ Oral Tablet Extended Release Take 2 Tablets by mouth in the morning. 100 Tablet 3 Vancomycin HCl 125 MG Oral Capsule (Vancocin) Take 1 Capsule by mouth every 6 hours. 360 Capsule 0 Metoprolol Succinate ER 25 MG Oral Tablet Extended Release 24 Hour (toPROL XL) TAKE ONE TABLET BY MOUTH EVERY MORNING 100 Tablet 1 predniSONE 5 MG Oral Tablet (Deltasone) TAKE ONE TABLET BY MOUTH EVERY DAY 90 Tablet 1 Mirtazapine 15 MG Oral Tablet (Remeron) TAKE ONE TABLET BY MOUTH AT BEDTIME 100 Tablet 3 Folic Acid 1 MG Oral Tablet Take [...] mouth in the morning. 90 Tablet 3 Solifenacin Succinate 10 MG Oral Tablet (VESIcare) TAKE ONE TABLET BY MOUTH EVERY DAY IN THE MORNING 90 Tablet 3 Zoster Vac Recomb Adjuvanted 50 MCG/0.5ML Intramuscular Suspension Reconstituted (Shingrix) Inject 0.5 mL into a large muscle now and repeat dose in 60 to 180 days Given at [facility] 1 Each 1 No current facility-administered medications [...] difficile diarrhea 03/28/2019 CAD (coronary artery disease), council coronary artery 08/10/2013 LAD disease Carpal tunnel syndrome 08/2006 mild left Chronic drug-induced interstitial lung disorders (HCC) 06/06/2013 Methotrxate Closed nondisplaced fracture of triquetrum of left wrist with routine healing 09/07/2022 Clostridioides difficile diarrhea Degenerative cervical spinal stenosis Depressive disorder, not elsewhere classified 11/23/2009 DM type 2 causing renal disease ([facility]) 06/1999 DM type 2, goal A1c below [...] disease, chronic, stage III (GFR 30-59 ml/min) ([facility]) Kidney disease, chronic, stage III (GFR 30-59 ml/min) ([facility]) Knee joint replacement status 11/01/2007 left knee Migraine without aura Obesity, BMI not known Open wound of upper limb 11/05/2004 Other specified glaucoma Peripheral neuropathy 08/12/2013 Persistent insomnia 03/29/2013 Prediabetes 06/17/2021 Pressure ulcer of sacral region, unstageable ([facility]) 10/15/2022 Primary localized osteoarthrosis of shoulder region 09/02/2006 Primary localized osteoarthrosis, lower leg 04/12/2003 Primary osteoarthritis of right shoulder 10/04/2015 Pseudophakia OU Rheumatoid arthritis involving multiple sites with positive rheumatoid factor ([facility]) 03/05/2016 Rheumatoid arthritis(714.0) Rotator cuff rupture 10/16/1996 right shoulder Rupture of anterior cruciate ligament of right knee 06/21/2020 chronic Thiamine deficiency 08/15/2013 Type 2 diabetes mellitus with diabetic chronic kidney disease ([facility]) 04/03/2015 Type 2 diabetes mellitus with hemoglobin A1c goal of less than 8.0% ([facility]) 03/01/2019 Type 2 diabetes mellitus with peripheral neuropathy ([facility]) 05/10/2019 Vitamin D deficiency 04/11/2010 Social History Socioeconomic History Marital status: Spouse name: Not on file Number of children: 3 Years of education: Not on file Highest education level: Not on file Occupational History Occupation: disability 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 Tobacco Use Smoking status: Never Smokeless tobacco: Never Vaping Use Vaping Use: Never used Substance and Sexual Activity Alcohol use: Not Currently Comment: ocassional Drug use: No Sexual activity: Yes Partners: Male Other Topics Concern Service No Blood Transfusions Yes Caffeine Concern Not Asked Occupational Exposure No Hobby Hazards No Sleep Concern No Stress Concern No Weight Concern Yes Special Diet Yes Back Care Not Asked Exercise Yes Bike Helmet Not Asked Seat Belt Yes Self-Exams Yes Social History Narrative Not on file Social Determinants of Health Financial Resource Strain: Not on file Food Insecurity: Not on file Transportation Needs: Not on file Physical Activity: Not on file Stress: Not on file Social Connections: Not on file Intimate Partner Violence: Not on file Housing Stability: Not on file O:Blood pressure 124/70, pulse 110, temperature (!) 38.9 C (102 F), temperature source Tympanic, resp. rate 16, weight 56.2 kg (124 lb), SpO2 95 %, not currently . GENERAL: alert, healthy, and no distress A:Fever, unspecified fever cause (Primary) Confusion Pt sent to ER for evaluation. Any questions/problems, please call. Follow Up: Return if symptoms worsen or fail to improve. Lary Landaverde PA-C documented in this encounter Nursing Notes * Karla Delcid LPN - 05/08/2023 9:10 AM EDT Fevers for at least a month- over 103 at times. Major memory changes- not normal- speaks with mother, other people who are not there that she doesn't even know, thinks she's in a different home, saying very strange & off the wall things Incontinent- cannot hold urine at all She just asked if there was pepperoni on the floor of the exam room. documented in this encounter Plan of Treatment Upcoming Encounters Date Type Specialty Care Team Description 06/03/2023 Office Visit Infectious Disease Ami Addison MD [address] [place] [address] 07/10/2023 Office Visit Family Medicine Leni Moyer[address] [place] [address] 08/10/2023 Office Visit Rheumatology Brandon Lewis [facility] [address] [facility] [place] [address] Health Maintenance Due Date Last Done Comments Alpha-1 Antitrypsin 1965 DTaP,Tdap,and Td Vaccines (2 - Td or Tdap) 10/02/2020 10/02/2010, 10/31/2004 COVID-19 Vaccine (6 - Moderna series) 05/21/2022 03/26/2022, 05/06/2021, 05/06/2021, Additional history exists *BISPHONATE OR OTHER ACCEPTABLE MEDICATION NEEDED FOR OSTEOPOROSIS (REFER TO SMARTSET #1146) 06/28/2022 CKD PHOS USE SMARTSET 47894 04/15/2023 08/0 10/2021, 03/12/2021, 07/19/2019, Additional history exists Influenza Vaccine (FLU shot) (#1) 2023 06/14/2018, 06/22/2017, 08/12/2016, Additional history exists HbA1c 06/30/2023 12/29/2022, 05/16, 11/22/2021, Additional history exists DIABETES-EYE EXAM 07/03/2023 07/03/2022, , 04/12/2020, Additional history exists GFR 07/15/2023 01/12/2023, 12/13, 10/15/2022, Additional history exists CKD HGB USE SMARTSET 39680 10/15/202310/15, 10/15/2022, 09/10/2022, Additional history exists Albumin/Creatinine Ratio 04/08/2024 023, 04/15/2022, 06/12/2021, Additional history exists DIABETES-FOOT EXAM 04/08/2024 04/08/2023, 0 06/10/2022, 06/12/2021, Additional history exists Depression Screening, Annual for Pts 12 and Over 04/08/2024 04/08/2023 O2 ASSESSMENT COMPLETED IN PAST YEAR FOR COPD 04/08/2024 04/08/2023 DXA Scan 05/04/2025 05/04/2023, 03/14, 01/18/2013 Pneumococcal Vaccine: 65+ Years Completed 03/05/2017, 06/28/2015, 11/25/2011, Additional history exists Fecal Occult Blood Test Discontinued 09/23/19, 08/06/2018, 02/21/2004 VITAMIN D LEVEL ONCE IN A LIFETIME-USE SMARTSET# [id number] Completed 10/18/2020, 03/06/2020, 03/26/2018, Additional history exists [...] this encounter Medical Devices Implanted Type Area Gas Truck Driver Device Identifier Shelf Expiration Date Model / Serial / Lot Lens 19.5 Sn60wf - [id number] - [id number] Implanted:Qty: 1 on 11/21/2016 by Faraz Jeffers MD at OR [facility] Left: Eye RAMÓN : SURGICAL 05/14/2021 SN60WF.1 95 / [id number] / Lens 19.5 Sn60wf - [id number] - [id number] Implanted:Qty: 1 on 04/22/2019 by Faraz Jeffers MD at OR [facility] Right: Eye RAMÓN : SURGICAL 07/14/2023 SN60WF.195 / [id number] / documented as of this encounter Visit Diagnoses Diagnosis Fever, unspecified fever cause- Primary Confusion Unspecified psychosis documented in this encounter Advance Directives Latest [...] and were consensually agreed upon. Care Teams Property Claims Manager Relationship Specialty Start Date End Date Leni Moyer[address] [place] [phone] PCP - General Internal Medicine 11/18/17 documented as of this encounter
--- OUTSIDE RECORDS SUMMARY | 2023-09-05 18:45 | External Medical Summary | Summary of Care ---
Author Name Unknown Organization [facility] Address [address] [facility] [address] [address] Phone [phone] Care Team Providers Care Scooping Machine Tender Name Role Phone Leni Moyer DO Primary Care Provider Reason for Visit * Reason Onset Date Comments Med Request 03/09/2023 METOPROLOL SUCCI RUSTY ER 50MG Encounter Details Date Type Department Care Team Description 03/09/2023 Telephone Family Medicine [address] [address] Leni Moyer DO [address] [place] [address] [place] [address] Med Request (METOPROLOL SUCCINATE ER 50MG) Allergies Active Allergy Reactions Severity Noted Date Comments Influenza Virus Vac Live Quad High 2020 2 years ago, flown to [facility] Methotrexate 08/19/2013 pneumonitis Other Allergy (See Comments) Rash 012 Insecticides cause breathing problems Penicillins Hives 02/01/2001 Ranitidine Rash 07/14/2001 documented as of this encounter (statuses as of 03/24/2023) Medications Medication Sig Dispensed Refills Start Date End Date Status ONETOUCH ULTRASOFT LANCETS MISC Check BS twice daily. E 11.9 1 Box Dosing Unit 11 7 Active Nystatin (NYSTOP) 937874 UNIT/GM powderIndications: Cutaneous candidiasis APPLY TOPICALLY TO AFFECTED AREA 3 TIMES A DAY. SPRINKLE OVER AFFECTED AREA. 15 g 2 7 Active triamcinolone acetonide (ARISTOCORT) 0.1 % creamIndications:P ruritic condition Apply topically to affected area 2 times a day. To affected area. 60 g 5 7 Active Blood Glucose Monitoring Suppl (Kiio SYSTEM) w/Device KIT Twice daily. Dx E 11.9 1 Kit 0 8 Active Glucose Blood (EXO5UCH ULTRA BLUE) STRPIndications:Ty pe 2 diabetes mellitus with hemoglobin A1c goal of less than 7.0% (FORM[facility]) Check BS twice daily E11.9 100 Strip 11 8 Active betamethasone dipropionate (DIPROSONE) 0.05 % creamIndications:R cipriano and nonspecific skin eruption,Itching Apply topically to affected area 2 times a day. To affected area. 45 g 1 8 Active Respiratory Therapy Supplies (NEBULIZER/TUBING/ MOUTHPIECE) [...] at bedtime. 30 Tablet 0 3 Active DULoxetine HCl 30 MG Oral Capsule Delayed Release Particles (Cymbalta)Indicati ons:Generalized osteoarthritis of multiple sites,Degeneration of lumbosacral intervertebral disc,Adjustment disorder with anxious mood TAKE 2 CAPSULES BY MOUTH EVERY DAY 200 Capsule 1 3 Active Solifenacin Succinate 10 MG Oral Tablet (VESIcare) Take 1 Tablet by mouth in the morning. 90 Tablet 3 3 Active Pantoprazole Sodium 40 MG Oral Tablet Delayed Release (Protonix)Indicati ons:Gastroesophage al reflux disease, unspecified whether esophagitis present 1 tablet by mouth daily 30 to 60 minutes before the first meal of the day 100 Tablet 3 3 Active Montelukast Sodium 10 MG Oral Tablet (Singulair) Take 1 Tablet by mouth in the morning. 100 Tablet 3 3 Active Clopidogrel Bisulfate [...] B-12 1000 MCG Oral CapsuleIndications :B12 deficiency 1999mcg Thursday, Thursday, and Thursday 30 Capsule 0 3 Active Centrum Silver 50+Women Oral Tablet Take 1 Tablet by mouth in the morning. 30 Tablet 0 3 Active Folic Acid 1 MG Oral TabletIndications: Rheumatoid arthritis (HCC) Take 1 Tab by mouth daily. 90 Tablet 2 3 Active Latanoprost 0.005 % Ophthalmic Solution (Xalatan)Indicatio ns:Primary open angle glaucoma of both eyes, mild stage INSTILL 1 DROP INTO BOTH EYES AT BEDTIME 7.5 mL 2 3 Active Levalbuterol HCl 1.25 MG/3ML Inhalation [...] the morning. 30 Capsule 0 3 Active Proventil HFA 108 (90 Base) MCG/ACT Inhalation Aerosol Solution Inhale 2 Puffs by mouth every 4 hours as needed for Wheezing. 8 g 0 3 Active Thiamine HCl 100 MG Oral Tablet (vitamin B-1)Indications:Th iamine deficiency TAKE 1/2 TABLET BY MOUTH DAILY. 45 Tablet 1 3 Active Potassium Chloride Lisette ER 20 MEQ Oral Tablet Extended Release Take 2 Tablets by mouth in the morning. 100 Tablet 3 3 Active Zoster Vac Recomb Adjuvanted 50 MCG/0.5ML Intramuscular Suspension Reconstituted (Shingrix) Inject 0.5 mL into a large muscle now and repeat dose in 60 to 180 days Given at [facility] 1 Each 1 3 Active Metoprolol Succinate ER 25 MG Oral Tablet Extended Release 24 Hour (toPROL XL) Take 1 Tablet by mouth in the morning. 30 Tablet 5 3 023 Discontinued(Re fill) Vancomycin HCl 125 MG Oral Capsule (Vancocin) Take 1 Capsule by mouth every 6 hours. 360 Capsule 0 3 023 Discontinued(Re fill) Mirtazapine 15 MG Oral Tablet (Remeron) Take 1 Tablet by mouth at bedtime. 100 Tablet 3 3 023 Discontinued([place] [facility] prescription brought in as discontinued) Rosuvastatin Calcium 20 MG Oral Tablet (Crestor) Take 1 Tablet by mouth in the morning. 90 Tablet 1 3 023 Discontinued([place] [facility] prescription brought in as discontinued) predniSONE 5 MG Oral Tablet (Deltasone) TAKE ONE TABLET BY MOUTH EVERY DAY 90 Tablet 1 3 023 Discontinued([place] [facility] prescription brought in as discontinued) Metoprolol Succinate ER 25 MG Oral Tablet Extended Release 24 Hour (toPROL XL) Take 1 Tablet by mouth in the morning. 100 Tablet 1 3 023 Discontinued([place] [facility] prescription brought in as discontinued) documented as of this encounter (statuses as of 03/24/2023) Active Problems Problem Noted Date Pressure ulcer of sacral region, unstage able 10/15/2022 Polyneuropathy associated with underlyin g disease 10/15/2022 Paroxysmal atrial fibrillation 3 History of 2019 novel coronavirus diseas e (COVID-19) 09/18/2022 DNR (do not resuscitate) 09/17/2022 H/O Clostridium difficile infection 08/15 Closed nondisplaced fracture of triquetrum of left wrist with routine healing 09/07/2022 Primary open angle glaucoma (POAG) of froilan [...] Age-related osteoporosis without current pathological fracture 06/08/2020 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 03/06/2020 Chronic right-sided heart failure 2019 Major depressive disorder, recurrent epi sode, in partial remission 11/03/2019 Last Assessment & Plan: Managed well with Cymbalta 60 mg daily Gastroesophageal reflux disease without esophagitis 11/03/2019 Last Assessment & Plan: Managed with pantoprazole 40 mg daily Coronary artery disease invo lving [place] coronary artery of [place] heart without angina pectoris 11/03/2019 Last Assessment [...] as of this encounter (statuses as of 03/24/2023) Resolved Problems Problem Noted Date Resolved Date Migraine 04/02/2022 04/02/2022 Thrombocytopenia 04/02/2022 10/15/2022 Prediabetes [...] ICD-10 update of inactive term LOC PRIM [id number] 04/12/2003 04/15/20 17 PURE HYPERCHOLESTEROLEM 12/27/2001 08/03/20 [...] COPD, moderate 12/05/2014 CAD (coronary artery disease), [place] coronary a rtery 02/24/2022 Overview: duplicate documented as of this encounter (statuses as of 03/24/2023) Immunizations Name Administration Dates Next Due COVID-19 [...] Telephone Encounter - Toshia Milan LPN - 03/12/2023 3:33 PM EDT Provider to address: Left message for pt's Florencio to return my call. I tried the mobile numberand there's no voicemail set up. Reason for Call: Med Request (METOPROLOL SUCCINATE ER 50MG) Contact: Telephone Call Contact Type: Follow-up Outcome: Total Time including non face to face (minutes): 10 * Telephone Encounter - Leni Moyer DO - 03/11/2023 8:32 AM EDT Metoprolol 50 mg is an old prescription - her dose was reduced to 25 mg, which is what she should be taking now. New script for 25 mg sent to mail order - notify pt's . * Telephone Encounter - Giovany Mendez LPN - 03/10/2023 11:25 AM EDT Contacted Aron (spouse) and He stated Patient is taking 50 mg and was prescribed it on 11/10/2022y Medication Pended If agreeable * Telephone Encounter - Evon Lieberman - 03/09/2023 11:00 AM EDT [facility] IS ASKING FOR A REFILL ON METOPROLOL SUCCINATE ER 50MG, I DON'T SEE 50MG IN HER MEDICATION LIST. documented in this encounter Plan of Treatment Upcoming Encounters Date Type Specialty Care Team Description 04/08/2023 Office Visit Family Medicine Alissa Moran PA-C [address] [place] [address] [place] [address] 04/17/2023 Office Visit Gastroenterology Myah Holloway CRNP [address] [place] [address] 05/04/2023 Imaging Radiology 06/03/2023 Office Visit Infectious Disease Ami Addison MD [address] [facility], [place] [address] 07/10/2023 Office Visit Family Medicine Leni Moyer[address] [place] [id number] 08/10/2023 Office Visit Rheumatology Brandon Lewis MD [address] [facility] [place], [place] [address] Health Maintenance Due Date Last Done Comments Alpha-1 Antitrypsin 1963 DTaP,Tdap,and Td Vaccines (2 - Td or Tdap) 10/02/2020 10/02/2010, 10/31/2004 Depression Screening, Annual for Pts 12 and Over 03/06/2021 03/06/2020 DXA Scan 03/26/2022 03/26/2020, 01/18/2013 COVID-19 Vaccine (6 - Moderna series) 05/21/2022 03/26/2022, 05/06/2021, 05/06/2021, Additional history exists *BISPHONATE OR OTHER ACCEPTABLE MEDICATION NEEDED FOR OSTEOPOROSIS (REFER TO SMARTSET #1146) 06/28/2022 Albumin/Creatinine Ratio 04/15/2023 022, 06/12/2021, 03/06/2020, Additional history exists CKD PHOS USE SMARTSET 04787 04/15/2023 08/0 10/2021, 03/12/2021, 07/19/2019, Additional history exists Influenza Vaccine (FLU shot) (#1) 2023 06/14/2018, 06/22/2017, 08/12/2016, Additional history exists DIABETES-FOOT EXAM 06/10/2023 06/10/2022, 0 06/12/2021, 03/06/2020, Additional history exists HbA1c 06/30/2023 12/29/2022, 05/16, 11/22/2021, Additional history exists DIABETES-EYE EXAM 07/03/2023 07/03/2022, , 04/12/2020, Additional history exists GFR 07/15/2023 01/12/2023, 12/13, 10/15/2022, Additional history exists CKD HGB USE SMARTSET 11802 10/15/202310/15, 10/15/2022, 09/10/2022, Additional history exists O2 ASSESSMENT COMPLETED IN PAST YEAR FOR COPD 10/15/2023 10/15/2022 Pneumococcal Vaccine: 65+ Years Completed 03/05/2017, 06/28/2015, 11/25/2011, Additional history exists Fecal Occult Blood Test Discontinued 09/23/19, 08/06/2018, 02/21/2004 VITAMIN D LEVEL ONCE IN A LIFETIME-USE SMARTSET# [id number] Completed 10/18/2020, 03/06/2020, 03/26/2018, Additional history exists [...] this encounter Medical Devices Implanted Type Area Music Historian Device Identifier Shelf Expiration Date Model / Serial / Lot Lens 19.5 Sn60wf - [id number] - [id number] Implanted:Qty: 1 on 11/21/2016 by Faraz Jeffers MD at OR [facility] Left: Eye RAMÓN : SURGICAL 05/14/2021 SN60WF.1 95 / [id number] / Lens 19.5 Sn60wf - [id number] - [id number] Implanted:Qty: 1 on 04/22/2019 by Faraz Jeffers MD at OR [facility] Right: Eye RAMÓN : SURGICAL 07/14/2023 SN60WF.195 / [id number] / documented as of this encounter Visit Diagnoses Diagnosis 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 Care Teams Scooping Machine Tender Relationship Specialty Start Date End Date Leni Moyer[address] [place] [address] PCP - General Internal Medicine 11/18/17 documented as of this encounter
--- OUTSIDE RECORDS SUMMARY | 2023-09-05 18:45 | External Medical Summary | Summary of Care ---
Author Name Unknown Organization [facility] Address [address] [place] [facility] [place] [address] Phone [phone] Care Team Providers Care Staff Internist Office Based Only Name Role Phone Leni Moyer DO Primary Care Provider [phone] Reason for Visit * Reason Onset Date Comments Medication Refill 03/11/2023 Encounter Details Date Type Department Care Team Description 03/11/2023 Telephone Family Medicine [address] [address] Leni Moyer DO [address] [place] [address] [place] [address] Medication Refill Allergies Active Allergy Reactions Severity Noted Date Comments Influenza Virus Vac Live Quad High 2020 2 years ago, flown to [facility] Methotrexate 08/19/2013 pneumonitis Other Allergy (See Comments) Rash 012 Insecticides cause breathing problems Penicillins Hives 02/01/2001 Ranitidine Rash 07/14/2001 documented as of this encounter (statuses as of 03/12/2023) Medications Medication Sig Dispensed Refills Start Date End Date Status ONETOUCH ULTRASOFT LANCETS MISC Check BS twice daily. E 11.9 1 Box Dosing Unit 11 12/15/2016 Active Nystatin (NYSTOP) 372415 UNIT/GM powderIndications:Cu taneous candidiasis APPLY TOPICALLY TO AFFECTED AREA 3 TIMES A DAY. SPRINKLE OVER AFFECTED AREA. 15 g 2 12/15/2016 Active triamcinolone acetonide (ARISTOCORT) 0.1 % creamIndications:Pru ritic condition Apply topically to affected area 2 times a day. To affected area. 60 g 5 07/23/2017 Active Blood Glucose Monitoring Suppl ([employer] ULTRA SYSTEM) w/Device KIT Twice daily. Dx E 11.9 1 Kit 0 12/25/2017 Active Glucose Blood (castaclipTOUCH ULTRA BLUE) STRPIndications:Type 2 diabetes mellitus with hemoglobin A1c goal of less than 7.0% ([facility]) Check BS twice daily E11.9 100 Strip [...] at bedtime. 30 Tablet 0 10/01/2022 Active DULoxetine HCl 30 MG Oral Capsule Delayed Release Particles (Cymbalta)Indication s:Generalized osteoarthritis of multiple sites,Degeneration of lumbosacral intervertebral disc,Adjustment disorder with anxious mood TAKE 2 CAPSULES BY MOUTH EVERY DAY 200 Capsule 1 10/01/2022 Active Solifenacin Succinate 10 MG Oral [...] the morning. 30 Tablet 0 10/01/2022 Active Folic Acid 1 MG Oral TabletIndications:Rh eumatoid arthritis (HCC) Take 1 Tab by mouth daily. 90 Tablet 2 10/01/2022 Active Latanoprost 0.005 % Ophthalmic Solution (Xalatan)Indications :Primary open angle glaucoma of both eyes, mild stage INSTILL 1 DROP INTO BOTH EYES AT BEDTIME 7.5 mL 2 10/01/2022 Active Levalbuterol HCl 1.25 MG/3ML Inhalation [...] for Wheezing. 8 g 0 10/01/2022 Active Thiamine HCl 100 MG Oral Tablet (vitamin B-1)Indications:Thia mine deficiency TAKE 1/2 TABLET BY MOUTH DAILY. 45 Tablet 1 10/01/2022 Active Vancomycin HCl 125 MG Oral Capsule (Vancocin) Take 1 Capsule by mouth every 6 hours. 360 Capsule 0 10/21/2022 Active Mirtazapine 15 MG Oral Tablet (Remeron) Take 1 Tablet by mouth at bedtime. 100 Tablet 3 11/04/2022 Active Potassium Chloride Lisette ER 20 MEQ Oral Tablet Extended Release Take 2 Tablets by mouth in the morning. 100 Tablet 3 11/26/2022 Active Rosuvastatin Calcium 20 MG Oral Tablet (Crestor) Take 1 Tablet by mouth in the morning. 90 Tablet 1 12/12/2022 Active Zoster Vac Recomb Adjuvanted 50 MCG/0.5ML Intramuscular Suspension Reconstituted (Shingrix) Inject 0.5 mL into a large muscle now and repeat dose in 60 to 180 days Given at [facility] 1 Each 1 12/29/2022 Active predniSONE 5 MG Oral Tablet (Deltasone) TAKE ONE TABLET BY MOUTH EVERY DAY 90 Tablet 1 03/03/2023 Active Metoprolol Succinate ER 25 MG Oral Tablet Extended Release 24 Hour (toPROL XL) Take 1 Tablet by mouth in the morning. 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 03/06/2020 Chronic right-sided heart failure 2019 Major depressive disorder, recurrent epi sode, in partial remission 11/03/2019 Last Assessment & Plan: Managed well with Cymbalta 60 mg daily Gastroesophageal reflux disease without esophagitis 11/03/2019 Last Assessment & Plan: Managed with pantoprazole 40 mg daily Coronary artery disease invo lving [place] coronary artery of [place] heart without angina pectoris 11/03/2019 Last Assessment [...] as of this encounter (statuses as of 03/12/2023) Resolved Problems Problem Noted Date Resolved Date [...] ICD-10 update of inactive term LOC PRIM [id number] 04/12/2003 04/15/20 17 PURE HYPERCHOLESTEROLEM 12/27/2001 08/03/20 [...] COPD, moderate 12/05/2014 CAD (coronary artery disease), [place] coronary a rtery 02/24/2022 Overview: duplicate documented as of this encounter (statuses as of 03/12/2023) Immunizations Name Administration Dates Next Due COVID-19 [...] encounter Miscellaneous Notes * Telephone Encounter - Saba Gonzalez RN - 03/12/2023 12:07 PM EDT Pt is on metoprolol 25 mg since 04/2022, pt has a current script for 25mg * Telephone Encounter - Ana Alvarado CPhT - 03/11/2023 8:08 AM EDT pharmacy calling requesting the following medication below that is listed as "Historical". The following information was provided: Medication Name: metoprolol ER Strength: 50mg Directions: qd Preferred Quantity: 100 Previous Prescriber: Leni Moyer Preferred Pharmacy: [facility]- [place] Please review and approve if appropriate. Thank you, Ana Alvarado CphT Manager Engagement III [facility]) (formerly Telepharmacy) 03/11/2023,8:09 AM documented in this encounter Plan of Treatment Upcoming Encounters Date Type Specialty Care Team Description 04/08/2023 Office Visit Family Medicine Alissa Moran PAMarisolC [address] [place] [address] [place] [address] 04/17/2023 Office Visit Gastroenterology Myah Holloway CRNP [address] [place] [address] 05/04/2023 Imaging Radiology 06/03/2023 Office Visit Infectious Disease Ami Addison MD [address] [place] [address] 07/10/2023 Office Visit Family Medicine Leni Moyer, [address] [place] [address] [place] [address] 08/10/2023 Office Visit Rheumatology Brandon Lewis MD [facility] [place] [address] Health Maintenance Due Date Last Done Comments [...] Additional history exists CKD PHOS USE SMARTSET 14081 04/15/2023 08/0 10/2021, 03/12/2021, 07/19/2019, Additional history exists Influenza Vaccine (FLU shot) (Season Ended) 2023 06/14/2018, 06/22/2017, 08/12/2016, Additional history exists DIABETES-FOOT EXAM 06/10/2023 06/10/2022, 0 06/12/2021, 03/06/2020, Additional history exists HbA1c 06/30/2023 12/29/2022, 05/16, 11/22/2021, Additional history exists DIABETES-EYE EXAM 07/03/2023 07/03/2022, , 04/12/2020, Additional history exists GFR 07/15/2023 01/12/2023, 04/03/2023, 10/15/2022, Additional history exists CKD HGB USE SMARTSET 37718 10/15/202310/15, 10/15/2022, 09/10/2022, Additional history exists O2 ASSESSMENT COMPLETED IN PAST YEAR FOR COPD 10/15/2023 10/15/2022 Pneumococcal Vaccine: 65+ Years Completed 03/05/2017, 06/28/2015, 11/25/2011, Additional history exists Fecal Occult Blood Test Discontinued 09/23/19, 08/06/2018, 02/21/2004 VITAMIN D LEVEL ONCE IN A LIFETIME-USE SMARTSET# 62031 Completed 10/18/2020, 03/06/2020, 03/26/2018, Additional history exists [...] this encounter Medical Devices Implanted Type Area Tube Inspector Device Identifier Shelf Expiration Date Model / Serial / Lot Lens 19.5 Sn60wf - [id number] - [id number] Implanted:Qty: 1 on 11/21/2016 by Faraz Jeffers MD at OR [facility] Left: Eye RAMÓN : SURGICAL 05/14/2021 SN60WF.1 95 / [id number] / Lens 19.5 Sn60wf - [id number] - [id number] Implanted:Qty: 1 on 04/22/2019 by Faraz Jeffers MD at OR [facility] Right: Eye RAMÓN : SURGICAL 07/14/2023 SN60WF.195 / [id number] / documented as of this encounter [...] and were consensually agreed upon. Care Teams Staff Internist Office Based Only Relationship Specialty Start Date End Date Leni Moey[address] [place] [address] PCP - General Internal Medicine 11/18/17 documented as of this encounter
--- OUTSIDE RECORDS SUMMARY | 2023-09-05 18:45 | External Medical Summary | Summary of Care ---
Author Name Unknown Organization [facility] [address] [facility] [address] Phone [phone] Care Team Providers Care Information Security Name Role Phone Leni Moyer Primary Care Provider Reason for Visit * Reason Comments Outpatient Testing Encounter Details Date Type Department Care Team Description 04/08/2023 Laboratory Laboratory [address] [place] [id number] [place] [address] Type 2 diabetes mellitus with peripheral neuropathy (HCC) Allergies Active Allergy Reactions Severity Noted Date Comments Influenza Virus Vac Live Quad High 2020 2 years ago, flown to [facility] Methotrexate 08/19/2013 pneumonitis Other Allergy (See Comments) Rash 012 Insecticides cause breathing problems Penicillins Hives 02/01/2001 Ranitidine Rash 07/14/2001 documented as of this encounter (statuses as of 04/08/2023) Medications Medication Sig Dispensed Refills Start Date End Date Status ONETOUCH ULTRASOFT LANCETS MISC Check BS twice daily. E 11.9 1 Box Dosing Unit 11 12/15/2016 Active Nystatin (NYSTOP) 021302 UNIT/GM powderIndications:Cu taneous candidiasis APPLY TOPICALLY TO AFFECTED AREA 3 TIMES A DAY. SPRINKLE OVER AFFECTED AREA. 15 g 2 12/15/2016 Active triamcinolone acetonide (ARISTOCORT) 0.1 % creamIndications:Pru ritic condition Apply topically to affected area 2 times a day. To affected area. 60 g 5 07/23/2017 Active Blood Glucose Monitoring Suppl ([employer] ULTRA SYSTEM) w/Device KIT Twice daily. Dx E 11.9 1 Kit 0 12/25/2017 Active Glucose Blood (HackMyPic[employer]OUCH ULTRA BLUE) STRPIndications:Type 2 diabetes mellitus with hemoglobin A1c goal of less than 7.0% ([facility]) Check BS twice daily E11.9 100 [...] in 60 to 180 days Given at [facility] 1 Each 1 12/29/2022 Active Vancomycin [...] the morning. 90 Tablet 3 04/08/2023 Active Clotrimazole 1 % External Cream (Lotrimin) Apply topically to affected area 2 times a day for 14 days. Apply to under breasts and under abdominal skin folds 45 g 1 04/08/2023 3 Active Cephalexin 500 MG Oral Capsule (Keflex)Indications: Skin infection Take 1 Capsule by mouth in the morning and 1 Capsule before bedtime. Do all this for 7 days. 14 Capsule 0 04/08/2023 3 Active Mupirocin 2 % External Ointment (Bactroban)Indicatio ns:Skin infection Apply topically to affected area 3 times a day for 14 days. 22 g 0 04/08/2023 3 Active documented as of this encounter (statuses as of 04/08/2023) Active Problems Problem Noted Date Polyneuropathy associated [...] osteoporosis without current pathological fracture 06/08/2020 long term acute care registered nurse current use of therapeutic elysia g 03/06/2020 Chronic right-sided heart failure 2019 Major depressive disorder, recurrent epi sode, in partial remission 11/03/2019 Last Assessment & Plan: Managed well with Cymbalta 60 mg daily Gastroesophageal reflux disease without esophagitis 11/03/2019 Last Assessment & Plan: Managed with pantoprazole 40 mg daily Coronary artery disease invo lving [place] coronary artery of [place] heart without angina pectoris 11/03/2019 Last Assessment [...] as of this encounter (statuses as of 04/08/2023) Resolved Problems Problem Noted Date Resolved Date [...] ICD-10 update of inactive term LOC PRIM [id number] 04/12/2003 04/15/20 17 PURE HYPERCHOLESTEROLEM 12/27/2001 08/03/20 [...] COPD, moderate 12/05/2014 CAD (coronary artery disease), [place] coronary a rtery 02/24/2022 Overview: duplicate documented as of this encounter (statuses as of 04/08/2023) Immunizations Name Administration Dates Next Due COVID-19 [...] Encounters Date Type Specialty Care Team Description 04/17/2023 Office Visit Gastroenterology Myah Holloway, JOSIANE [address] [place] [address] 05/04/2023 Imaging Radiology 06/03/2023 [facility] Visit [facility] [address] [facility] [address] 07/10/2023 Office Visit Family Medicine Leni Moyer[address] [place] [id number] 08/10/2023 Office Visit [facility]umatology [facility] [address] Pending Results Name Type Priority Associated Diagnoses Date /Time ALBUMIN / CREATININE RATIO, URINE Lab Routine Type 2 diabetes mellitus with peripheral neuropathy (HCC) 04/08/2023 2:23 PM EDT Health Maintenance Due Date Last [...] Additional history exists CKD PHOS USE SMARTSET 00671 04/15/2023 08/0 10/2021, 03/12/2021, 07/19/2019, Additional history exists Influenza Vaccine (FLU shot) (#1) 2023 06/14/2018, 06/22/2017, 08/12/2016, Additional history exists HbA1c 06/30/2023 12/29/2022, 05/16, 11/22/2021, Additional history exists DIABETES-EYE EXAM 07/03/2023 07/03/2022, , 04/12/2020, Additional history exists GFR 07/15/2023 01/12/2023, 0403/2023, 10/15/2022, Additional history exists CKD HGB USE SMARTSET 66836 10/15/202310/15, 10/15/2022, 09/10/2022, Additional history exists O2 ASSESSMENT COMPLETED IN PAST YEAR FOR COPD 10/15/2023 10/15/2022 DIABETES-FOOT EXAM 04/08/2024 04/08/2023, 0 06/10/2022, 06/12/2021, Additional history exists Pneumococcal Vaccine: 65+ Years Completed 03/05/2017, 06/28/2015, 11/25/2011, Additional history exists Fecal Occult Blood Test Discontinued 09/23/19, 08/06/2018, 02/21/2004 VITAMIN D LEVEL ONCE IN A LIFETIME-USE SMARTSET# [id number] Completed 10/18/2020, 03/06/2020, 03/26/2018, Additional history exists [...] this encounter Medical Devices Implanted Type Area Ticket Machine Operator Device Identifier Shelf Expiration Date Model / Serial / Lot Lens 19.5 Sn60wf - [id number] - [id number] Implanted:Qty: 1 on 11/21/2016 by Faraz Jeffers MD at [facility] Left: Eye RAMÓN : SURGICAL 05/14/2021 SN60WF.1 95 / [id number] / Lens 19.5 Sn60wf - [id number] - [id number] Implanted:Qty: 1 on 04/22/2019 by Faraz Jeffers MD at [facility] Right: Eye RAMÓN : SURGICAL 07/14/2023 SN60WF.195 / [id number] / documented as of this encounter Visit Diagnoses Diagnosis Type 2 diabetes mellitus with peripheral neuropathy (HCC) documented in this encounter Advance Directives Latest [...] and were consensually agreed upon. Care Teams Information Security Relationship Specialty Start Date End Date Leni Moyer, [address] [place] [address] PCP - General Internal Medicine 11/18/17 documented as of this encounter
--- OUTSIDE RECORDS SUMMARY | 2023-09-05 18:45 | External Medical Summary | Summary of Care ---
Author Name Unknown Organization [facility] Address [address] [facility] [place] [address] Phone [phone] Care Team Providers Care Machine Milker Name Role Phone Leni Moyer Primary Care Provider [phone] Reason for Visit * Reason Comments Re-Check 3 mo recheck Encounter Details Date Type Department Care Team Description 04/08/2023 Office Visit Family Medicine [address] [id number] Alissa Moran PA-C [address] [place] [address] [place] [id number] Type 2 diabetes mellitus with peripheral neuropathy (HCC)*; Generalized osteoarthritis of multiple sites; LUMB-LUMBOSAC DISC DEGEN; Adjustment disorder with anxious mood; Thiamine deficiency; Skin infection; Dyslipidemia, goal LDL below 100; Chronic obstructive pulmonary disease, unspecified COPD type (HCC); Essential hypertension with goal blood pressure less than 140/90; Paroxysmal atrial fibrillation ([facility]); H/O Clostridium difficile infection Allergies Active Allergy Reactions Severity Noted Date [...] Dosing Unit 11 12/15/2016 Active Nystatin (NYSTOP) 851341 UNIT/GM powderIndications:C utaneous candidiasis APPLY TOPICALLY TO AFFECTED AREA 3 TIMES A DAY. SPRINKLE OVER AFFECTED AREA. 15 g 2 12/15/2016 Active triamcinolone acetonide (ARISTOCORT) 0.1 % creamIndications:Pr uritic condition Apply topically to affected area 2 times a day. To affected area. 60 g 5 07/23/2017 Active Blood Glucose Monitoring Suppl (Rapid RMS ULTRA SYSTEM) w/Device KIT Twice daily. Dx E 11.9 1 Kit 0 12/25/2017 Active Glucose Blood ([employer]UCH ULTRA BLUE) STRPIndications:Typ e 2 diabetes mellitus with hemoglobin A1c goal of less than 7.0% ([facility]) Check BS twice daily E11.9 100 Strip 11 12/28/2017 Active betamethasone dipropionate (DIPROSONE) 0.05 % creamIndications:Ra sh and nonspecific skin eruption,Itching Apply topically to affected area 2 times a day. To affected area. 45 g 1 06/14/2018 Active Respiratory Therapy Supplies (NEBULIZER/TUBING/M OUTHPIECE) KIT [...] in 60 to 180 days Given at [facility] 1 Each 1 12/29/2022 Active Vancomycin [...] 90 Tablet 1 03/03/2023 03/02/20 24 Active Mirtazapine 15 MG Oral Tablet (Remeron) TAKE ONE TABLET BY MOUTH AT BEDTIME 100 Tablet 3 11/04/2022 11/04/19 24 Active Folic Acid 1 MG Oral [...] abdominal skin folds 45 g 1 04/08/2023 04/22/20 23 Active Cephalexin 500 MG Oral Capsule (Keflex)Indications :Skin infection Take 1 Capsule by mouth in the morning and 1 Capsule before bedtime. Do all this for 7 days. 14 Capsule 0 04/08/2023 04/15/20 Active Mupirocin 2 % External Ointment (Bactroban)Indicati ons:Skin infection Apply topically to affected area 3 times a day for 14 days. 22 g 0 04/08/2023 04/22/20 23 Active Thiamine HCl 100 MG Oral Tablet (vitamin B-1)Indications:Thi amine deficiency TAKE 1/2 TABLET BY MOUTH DAILY. 45 Tablet 1 10/01/2022 04/08/20 23 Discontinu ed(Refill) Rosuvastatin Calcium 20 MG Oral Tablet (Crestor) TAKE ONE TABLET BY MOUTH IN THE MORNING 90 Tablet 1 12/12/2022 04/08/20 23 Discontinu ed(Refill) DULoxetine HCl 30 MG Oral Capsule Delayed Release Particles (Cymbalta)Indicatio ns:Generalized osteoarthritis of multiple sites,Degeneration of lumbosacral intervertebral disc,Adjustment disorder with anxious mood Take 2 Capsules by mouth daily. 200 Capsule 1 03/30/2023 04/08/20 23 Discontinu ed(Refill) documented as of this [...] Age-related osteoporosis without current pathological fracture 06/08/2020 terminologist current use of therapeutic elysia g 03/06/2020 Chronic right-sided heart failure 2019 Major depressive disorder, recurrent epi sode, in partial remission 11/03/2019 Last Assessment & Plan: Managed well with Cymbalta 60 mg daily Gastroesophageal reflux disease without esophagitis 11/03/2019 Last Assessment & Plan: Managed with pantoprazole 40 mg daily Coronary artery disease invo lving diomede coronary artery of diomede heart without angina pectoris 11/03/2019 Last Assessment [...] ICD-10 update of inactive term LOC PRIM [id number] 04/12/2003 04/15/20 17 PURE HYPERCHOLESTEROLEM 12/27/2001 08/03/20 [...] of inactive term DIAB RENAL MANIF ADULT Overview: Per Diabetes Taxonomy. Knee joint replacement status Abnormal results of liver function studies 12/26/2013 Kidney disease, chronic, stage III (GFR 30-59 ml /min) 05/27/2019 COPD, moderate 12/05/2014 CAD (coronary artery disease), diomede coronary a rtery 02/24/2022 Overview: duplicate documented [...] Sign Reading Time Taken Comments Blood Pressure 104/68 04/08/2023 1:42 PM EDT Pulse 88 04/08/2023 1:42 PM EDT Temperature 36.4 C (97.5 F) 04/08/2023 1:42 PM ED T Respiratory Rate - - Oxygen Saturation 95% 04/08/2023 1:42 PM EDT Inhaled Oxygen Concentration - - Weight 57.5 kg (126 lb 11.2 oz) 04/08/2023 1:42 PM EDT Height - - Body Mass Index 26.48 12/29/2022 10:43 AM EDT documented in this encounter Patient Instructions * Patient Instructions* Shavon Manning CMA - 04/08/2023 1:46 PM EDT Diabetes: Keeping Feet Healthy Inspect your feet every day for signs of a problem. Diabetes can damage nerves in your feet and cause neuropathy. This condition makes it hard for you to feel injuries or sore spots. Diabetes can also change blood flow, making it harder for small problems, like a blister, to heal properly. In fact, minor injuries can quickly become serious infections that send you to the hospital. Practice self-care to protect your feet and keep them healthy. Take Special Care Inspect your feet daily for problems such as redness, blisters, cracks, dry skin, or numbness. Use a mirror to see the bottoms of your feet. Or, ask for help. Manage your diabetes. Monitor and control your blood sugar. Take all your medications as prescribed. Avoid walking barefoot, even indoors. Wash your feet with warm water and mild soap. Dry well, especially between toes. Dont treat corns or calluses yourself. Talk to your doctor or board liner operator (a doctor who specializes in foot care) if you need assistance trimming your toenails. Use moisturizing cream or lotion if you have dry skin, but dont use it between toes. Dont use heating pads on your feet. If you have neuropathy, you could get a burn and not feel it. Stop smoking. Smoking restricts blood flow and can make it harder for wounds to heal. Have Regular Checkups Foot problems can develop quickly. So be sure to follow your healthcare teams schedule for regular checkups. During office visits, take off your shoes and socks as soon as you get in the exam room. Ask your healthcare provider to examine your feet for problems. This will make it easier to find and treat small skin irritations before they get worse. Regular checkups can also help keep track of the blood flow and feeling in your feet. If you have neuropathy, you may need to have checkups more often. Wear Proper Footwear Wearing proper footwear is very important. If areas of your feet have been damaged by too much pressure, your healthcare provider may recommend changing your footwear. In some cases, avoiding high heels or tight work boots may be all thats needed. Or, your healthcare provider may recommend special shoes or custom inserts. These help protect your feet and keep existing irritations from getting worse. If you need special footwear, ask your healthcare provider if you qualify for [employer] diabetic shoe program. Make Sure Shoes and Socks Fit Any pair of shoes--new or old--should feel comfortable as soon as you put them on. There shouldnt be any rubbing when you walk. Wear the right shoe for any activity. For instance, a running shoe is designed to keep your feet injury-free while jogging. Buy shoes at the end of the day, when your feet are larger. Make sure they provide support without feeling too loose. Make sure your socks fit, t oo. Wear soft, seamless, well-padded socks for activity. Cotton or microfiber socks are best to help to absorb sweat. To protect your feet, avoid shoes that are open-toed or open-heeled. If you have questions about what kinds of shoes and socks are best, talk to your healthcare team. Get Regular Exercise Regular exercise improves blood flow in your feet. It also increases foot strength and flexibility.Gentle exercises, like walking or riding a stationary bicycle, are best. You can also do special foot exercises. Just be sure to talk with your healthcare provider before starting any exercise program. Also mention if any exercise causes pain, redness, or other signs of foot problems. Note: If you have any kind of break in the skin of your foot or ankle, keep the area clean. Then call your doctor--especially if the area doesnt appear to be healing. [id number] [employer], [address] [place] [address], [place] [id number]. All rights reserved. This information is not intended as a substitute for professional medical care. Always follow your healthcare professional's instructions. documented in this encounter Progress Notes * Alissa Moran PA-C - 04/08/2023 1:54 PM EDT Images from the original note were not included. History of Present Illness Belem Rodriguez is a 77 year old female that presents for Re-Check (3 mo recheck) Nursing Notes: Shavon Manning CMA 04/08/23 1358 Signed She is here for a 3 mo recheck. She notices that her feet sometimes go the wrong way. She thinks there was some damage from the stroke. She also gets confused sometimes. She says that this is actually an improvement though. Brief Clinical History Ms. Rodriguez is a 77 year old woman last seen in Family Medicine 3 months ago (12-29-22). 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 and stage 3b chronic kidney disease (HCC), immunity disorder, Major depressive disorder, recurrent episode,in partial remission (HCC), Moderate protein-calorie malnutrition (HCC), neuropathy, Neutropenia (HCC), Paroxysmal atrial fibrillation (HCC), Polyneuropathy associated with underlying disease (HCC), Pressure ulcer of sacral region, unstageable (HCC), protein-calorie malnutrition, Type 2 diabetes mellitus with peripheral neuropathy (HCC), and Type 2 diabetes mellitus with stage 3b chronic kidney disease, without long-term current use of insulin (HCC), due for eval of Rheumatoid arthritis involving multiple sites with positive rheumatoid factor (HCC). HPI: Belem Rodriguez is a 77 year old female presenting to the office today for 3 month recheck. Belem has been stable from a breathing perspective. She still gets phlegm in her throat and SOB withsome exertion but has been stable overall. She uses her inhalers and nebulizer PRN which helps. She had a cat scratch her arm the other day. It is healing, but there is redness around the area and her wrist hurts on and off. She has no fever. No drainage. She had not had any major problems otherwise. She is following up with Gastro next week. Current Outpatient Medications Medication Instructions Acetaminophen (TYLENOL) 325 mg, Oral, PRN Albuterol Sulfate HFA 108 (90 Base) MCG/ACT Inhalation Aerosol Solution 2 Puffs, Inhalation, Q4H PRN amLODIPine (NORVASC) 10 mg, Oral, Daily(AM) B-12 1000 MCG Oral Capsule 2000mcg Thursday, Thursday, and Thursday betamethasone dipropionate (DIPROSONE) 0.05 % cream Topical, BID(AM/PM), To affected area. Blood Glucose Monitoring Suppl (Rapid RMS ULTRA SYSTEM) w/Device KIT Twice daily. Dx E 11.9 Centrum Silver 50+Women Oral Tablet 1 Tablet, Oral, Daily(AM) clopidogrel (PLAVIX) 75 mg, Oral, Daily(AM) Culturelle Kids Oral Packet 1 Packet, Oral, BID(AM/PM) DULoxetine (CYMBALTA) 60 mg, Oral, Daily(Non-Specified) Ferrous Sulfate (FEOSOL) 325 mg, Oral, BREAKFAST Fluticasone Furoate-Vilanterol 200-25 MCG/ACT Inhalation Aerosol Powder Breath Activated (BREO ellipta) 1 Puff, Inhalation, Daily(AM), Rinse mouth after use folic acid 1 mg, Oral, Daily(Non-Specified) Glucose Blood (ONETOUCH ULTRA BLUE) STRP Check BS twice daily E11.9 hydroxychloroquine (PLAQUENIL) 200 mg, Oral, HS Latanoprost 0.005 % Ophthalmic Solution (Xalatan) INSTILL 1 DROP INTO BOTH EYES AT BEDTIME Levalbuterol HCl 1.25 MG/3ML Inhalation Nebulization Solution (Xopenex) via nebulizer every 4 hours as needed for SOB or cough and wheezing Dx: Asthma J45.30 Magnesium Oxide -Mg Supplement (MAG-OX) 400 mg, Oral, BID(AM/PM) Menthol-Zinc Oxide 0.44-20.6 % External Ointment (Calmoseptine) 6 %(Oxygen), Topical, PRN, 1 application ext bid Metoprolol Succinate ER 25 MG Oral Tablet Extended Release 24 Hour (toPROL XL) TAKE ONE TABLET BY MOUTH EVERY MORNING Mirtazapine 15 MG Oral Tablet (Remeron) TAKE ONE TABLET BY MOUTH AT BEDTIME montelukast (SINGULAIR) 10 mg, Oral, Daily(AM) Nystatin (NYSTOP) 435232 UNIT/GM powder APPLY TOPICALLY TO AFFECTED AREA 3 TIMES A DAY. SPRINKLE OVER AFFECTED AREA. Ocuvite-Lutein Oral Capsule 1 Capsule, Oral, Daily(AM) ONETOUCH ULTRASOFT LANCETS MISC Check BS twice daily. E 11.9 Pantoprazole Sodium 40 MG Oral Tablet Delayed Release (Protonix) 1 tablet by mouth daily 30 to 60 minutes before the first meal of the day Potassium Chloride Lisette ER 20 MEQ Oral Tablet Extended Release 40 mEq, Oral, Daily(AM) predniSONE 5 MG Oral Tablet (Deltasone) TAKE ONE TABLET BY MOUTH EVERY DAY Proventil HFA 108 (90 Base) MCG/ACT Inhalation Aerosol Solution 2 Puffs, Inhalation, Q4H PRN Respiratory Therapy Supplies (NEBULIZER/TUBING/MOUTHPIECE) KIT No dose, route, or frequency recorded. Rosuvastatin Calcium 20 MG Oral Tablet (Crestor) TAKE ONE TABLET BY MOUTH IN THE MORNING Solifenacin Succinate (VESICARE) 10 mg, Oral, Daily(AM) Thiamine HCl 100 MG Oral Tablet (vitamin B-1) TAKE 1/2 TABLET BY MOUTH DAILY. triamcinolone acetonide (ARISTOCORT) 0.1 % cream Topical, BID(AM/PM), To affected area. vancomycin (VANCOCIN) 125 mg, Oral, Q6H Vitamin D3 2,000 Units, Oral, Daily(AM) Zoster Vac Recomb Adjuvanted 50 MCG/0.5ML Intramuscular Suspension Reconstituted (Shingrix) Inject 0.5 mL into a large muscle now and repeat dose in 60 to 180 days Given at [facility] reviewed by me today. Physical Exam Vitals: 04/08/23 1342 Temp: 36.4 C (97.5 F) Pulse: 88 SpO2: 95% BP: 104/68 Physical exam: General: Well-Developed. Well appearing. No acute distress. HENT: Normocephalic. Atraumatic. Hearing normal. Eyes: EOMI. Sclera without erythema or icterus. No discharge. Pupils equal, round, reactive to light. Neck: No tracheal deviation. ROM intact. No stridor. Cardiovascular: RRR. Normal S1/S2 noted. No murmur, rub or gallop appreciated. Pulmonary: No respiratory distress. No accessory muscle use. No adventitious sounds appreciated. Normal breath sounds. Musculoskeletal: In a wheelchair today. Neurologic: Alert. Oriented x 3. Appears stated age. CN 2-12 grossly intact. Skin: Warm and dry. No apparent rashes or ecchymoses. No jaundice or pallor noted. Psych: Mood and affect normal. I have reviewed the following results: CMP, Lipid Panel, Hemoglobin A1C and CBC Assessment and Plan Type 2 diabetes mellitus with peripheral neuropathy (HCC) Continue current treatment. Check urine sample today. - DIABETES FOOT EXAM - ALBUMIN / CREATININE RATIO, URINE; Future Generalized osteoarthritis of multiple sites LUMB-LUMBOSAC DISC DEGEN Adjustment disorder with anxious mood Refilled. Stable. - DULoxetine HCl 30 MG Oral Capsule Delayed Release Particles (Cymbalta); Take 2 Capsules by mouth daily. Thiamine deficiency Refilled. - Thiamine HCl 100 MG Oral Tablet (vitamin B-1); TAKE 1/2 TABLET BY MOUTH DAILY. Skin infection Recommended Keflex and mupirocin ointment. She agreed. - Cephalexin 500 MG Oral Capsule (Keflex); Take 1 Capsule by mouth in the morning and 1 Capsule before bedtime. Do all this for 7 days. - Mupirocin 2 % External Ointment (Bactroban); Apply topically to affected area 3 times a day for 14 days. Dyslipidemia, goal LDL below 100 Continue statin, Refilled. Chronic obstructive pulmonary disease, unspecified COPD type (HCC) Continues to have fluctuations in breathing. Nebulizer helps. Continue PRN. Essential hypertension with goal blood pressure less than 140/90 Stable. Continue same. Paroxysmal atrial fibrillation (HCC) H/O Clostridium difficile infection Keep f/u with Gastro. Wrap-Up F/U as scheduled or sooner PRN * Shavon Manning CMA - 04/08/2023 1:45 PM EDT DM Foot Exam completed today. Provider aware. Shavon Manning CMA Socks and Shoes Removed for Annual Diabetic Foot Screening RIGHT FOOT: No Reddened, Cracking, Or Open Areas Noted. RIGHT Dorsalis Pedis Pulse: Palpable RIGHT Posterior Tibial Pulse: Palpable RIGHT Monofilament:Patient reports feeling monofilament pressure on plantar surface of foot LEFT FOOT: No Reddened, Cracking or Open Areas Noted. LEFT Dorsalis Pedis Pulse: Palpable LEFT Posterior Tibial Pulse: Palpable LEFT Monofilament:Patient reports feeling monofilament pressure on plantar surface of foot Do you need diabetic shoes: No documented in this encounter Nursing Notes * Shavon Manning CMA - 04/08/2023 1:37 PM EDT She is here for a 3 mo recheck. She notices that her feet sometimes go the wrong way. She thinks there was some damage from the stroke. She also gets confused sometimes. She says that this is actually an improvement though. documented in this encounter Plan of Treatment Upcoming Encounters Date Type Specialty Care Team Description 04/17/2023 Office Visit Gastroenterology Myah Holloway CRNP [address] [place] [id number] 05/04/2023 Imaging Radiology 06/03/2023 Office Visit Infectious Disease Ami Addison MD [address], [place] [id number] 07/10/2023 Office Visit Family Medicine Leni Moyer[address] [place] [phone] 08/10/2023 [facility] [address] [facility] [address] Pending Results Name Type Priority Associated Diagnoses Date /Time ALBUMIN / CREATININE RATIO, URINE Lab Routine Type 2 diabetes mellitus with peripheral neuropathy (HCC) 04/08/2023 2:23 PM EDT Scheduled Orders Name Type Priority Associated Diagnoses Orde r Schedule ALBUMIN / CREATININE RATIO, URINE Lab Routine Type 2 diabetes mellitus with peripheral neuropathy (HCC) Expected: 04/08/2023 (Approximate), Expires: 04/07/2024 Health Maintenance Due Date Last Done Comments [...] Additional history exists CKD PHOS USE SMARTSET 09519 04/15/2023 08/0 10/2021, 03/12/2021, 07/19/2019, Additional history exists Influenza Vaccine (FLU shot) (#1) 2023 06/14/2018, 06/22/2017, 08/12/2016, Additional history exists HbA1c 06/30/2023 12/29/2022, 05/16, 11/22/2021, Additional history exists DIABETES-EYE EXAM 07/03/2023 07/03/2022, , 04/12/2020, Additional history exists GFR 07/15/2023 01/12/2023, 12/13, 10/15/2022, Additional history exists CKD HGB USE SMARTSET 90082 10/15/202310/15, 10/15/2022, 09/10/2022, Additional history exists O2 ASSESSMENT COMPLETED IN PAST YEAR FOR COPD 10/15/2023 10/15/2022 DIABETES-FOOT EXAM 04/08/2024 04/08/2023, 0 06/10/2022, 06/12/2021, Additional history exists Pneumococcal Vaccine: 65+ Years Completed 03/05/2017, 06/28/2015, 11/25/2011, Additional history exists Fecal Occult Blood Test Discontinued 09/23/19, 08/06/2018, 02/21/2004 VITAMIN D LEVEL ONCE IN A LIFETIME-USE SMARTSET# [id number] Completed 10/18/2020, 03/06/2020, 03/26/2018, Additional history exists [...] this encounter Medical Devices Implanted Type Area Giving Officer Device Identifier Shelf Expiration Date Model / Serial / Lot Lens 19.5 Sn60wf - [id number] - [id number] Implanted:Qty: 1 on 11/21/2016 by Faraz Jeffers MD at [facility] Left: Eye RAMÓN : SURGICAL 05/14/2021 [id number].1 95 / [id number] / Lens 19.5 Sn60wf - [id number] - [id number] Implanted:Qty: 1 on 04/22/2019 by Faraz Jeffers MD at OR [facility] Right: Eye RAMÓN : SURGICAL 07/14/2023 [id number].[id number] / [id number] / documented as of this encounter Visit Diagnoses Diagnosis Type 2 diabetes mellitus with peripheral neuropathy (HCC)- Primary Generalized osteoarthritis of multiple sites Generalized osteoarthrosis, involving multiple sites LUMB-LUMBOSAC DISC DEGEN Degeneration of lumbar or lumbosacral intervertebral disc Adjustment disorder with anxious mood Adjustment disorder with anxiety Thiamine deficiency Other and unspecified manifestations of thiamine deficiency Skin infection Unspecified local infection of skin and subcutaneous tissue Dyslipidemia, goal LDL below 100 Other and unspecified hyperlipidemia Chronic obstructive pulmonary disease, unspecified COPD type (HCC) Essential hypertension with goal blood pressure less than 140/90 Paroxysmal atrial fibrillation (HCC) Atrial fibrillation H/O Clostridium difficile infection Personal history of other infectious and parasitic disease documented in this encounter Advance Directives Latest [...] and were consensually agreed upon. Care Teams Machine Milker Relationship Specialty Start Date End Date Leni Moyer[address] [place] [address] PCP - General Internal Medicine 11/18/17 documented as of this encounter
--- OUTSIDE RECORDS SUMMARY | 2023-09-05 18:45 | External Medical Summary | Summary of Care ---
Author Name Unknown Organization [facility] Address [address] [facility] [address] Phone [phone] Care Team Providers Care Lump Room Supervisor Name Role Phone Ernesto Harper DO Primary Care Provider Reason for Visit * Reason Onset Date Comments Medication Refill 03/31/2023 Encounter Details Date Type Department Care Team Description 03/31/2023 Refill Family Medicine [address] [id number] Ernesto Harper DO [address] [place] [address] [place] [address] Primary open angle glaucoma of both eyes, mild stage Allergies Active Allergy Reactions Severity Noted Date Comments Influenza Virus Vac Live Quad High 2020 2 years ago, flown to [facility] Methotrexate 08/19/2013 pneumonitis Other Allergy (See Comments) Rash 012 Insecticides cause breathing problems Penicillins Hives 02/01/2001 Ranitidine Rash 07/14/2001 documented as of this encounter (statuses as of 04/06/2023) Medications Medication Sig Dispensed Refills Start Date End Date Status ONETOUCH ULTRASOFT LANCETS MISC Check BS twice daily. E 11.9 1 Box Dosing Unit 11 12/15/2016 Active Nystatin (NYSTOP) 731982 UNIT/GM powderIndications:C utaneous candidiasis APPLY TOPICALLY TO AFFECTED AREA 3 TIMES A DAY. SPRINKLE OVER AFFECTED AREA. 15 g 2 12/15/2016 Active triamcinolone acetonide (ARISTOCORT) 0.1 % creamIndications:Pr uritic condition Apply topically to affected area 2 times a day. To affected area. 60 g 5 07/23/2017 Active Blood Glucose Monitoring Suppl ([employer] ULTRA SYSTEM) w/Device KIT Twice daily. Dx E 11.9 1 Kit 0 12/25/2017 Active Glucose Blood (WonderflowUCH ULTRA BLUE) STRPIndications:Typ e 2 diabetes mellitus [...] MOUTH DAILY. 45 Tablet 1 10/01/2022 Active Potassium Chloride Lisette ER 20 [...] 90 Tablet 1 03/03/2023 03/02/20 24 Active Rosuvastatin Calcium 20 MG Oral Tablet (Crestor) TAKE ONE TABLET BY MOUTH IN THE MORNING 90 Tablet 1 12/12/2022 12/12/19 24 Active Mirtazapine 15 MG Oral Tablet (Remeron) TAKE ONE TABLET BY MOUTH AT BEDTIME 100 Tablet 3 11/04/2022 11/04/19 24 Active DULoxetine HCl 30 MG Oral Capsule Delayed Release Particles (Cymbalta)Indicatio ns:Generalized osteoarthritis of multiple sites,Degeneration of lumbosacral intervertebral disc,Adjustment disorder with anxious mood TAKE 2 CAPSULES BY MOUTH EVERY DAY 200 Capsule 1 03/30/2023 Active Folic Acid 1 MG Oral TabletIndications:R heumatoid arthritis (HCC) Take 1 Tab by mouth daily. 100 Tablet 2 03/30/2023 Active Latanoprost 0.005 % Ophthalmic Solution (Xalatan)Indication s:Primary open angle glaucoma of both eyes, mild stage INSTILL 1 DROP INTO BOTH EYES AT BEDTIME 7.5 mL 0 03/31/2023 Active Latanoprost 0.005 % Ophthalmic Solution (Xalatan)Indication s:Primary open angle glaucoma of both eyes, mild stage INSTILL 1 DROP INTO BOTH EYES AT BEDTIME 7.5 mL 2 10/01/2022 03/31/20 23 Discontinu ed(Refill) documented as of this encounter (statuses as of 04/06/2023) Active Problems Problem Noted Date Pressure ulcer [...] th eyes, mild stage 04/02/2022 History of VT (myocardial infarction) Neutropenia 04/02/2022 Last Assessment & [...] Age-related osteoporosis without current pathological fracture 06/08/2020 retirement current use of therapeutic elysia g 03/06/2020 Chronic right-sided heart failure 2019 Major depressive disorder, recurrent epi sode, in partial remission 11/03/2019 Last Assessment & Plan: Managed well with Cymbalta 60 mg daily Gastroesophageal reflux disease without esophagitis 11/03/2019 Last Assessment & Plan: Managed with pantoprazole 40 mg daily Coronary artery disease invo lving tangirnaq coronary artery of tangirnaq heart without angina pectoris 11/03/2019 Last Assessment [...] as of this encounter (statuses as of 04/06/2023) Resolved Problems Problem Noted Date Resolved Date [...] ICD-10 update of inactive term LOC PRIM [id number] 04/12/2003 04/15/20 17 PURE HYPERCHOLESTEROLEM 12/27/2001 08/03/20 [...] COPD, moderate 12/05/2014 CAD (coronary artery disease), tangirnaq coronary a rtery 02/24/2022 Overview: duplicate documented as of this encounter (statuses as of 04/06/2023) Immunizations Name Administration Dates Next Due COVID-19 [...] Telephone Encounter - Ernesto Harper DO - 03/31/2023 1:01 PM EDTSigned Prescriptions: Disp Refills Latanoprost 0.005 % Ophthalmic Solution (X*7.5 mL 0 Sig: INSTILL 1 DROP INTO BOTH EYES AT BEDTIME Authorizing Provider: ERNESTO HARPER * Telephone Encounter - CECILIA Mota - 03/31/2023 11:33 AM EDT Did you pend patient's preferred pharmacy and medication before forwarding?yes Pharmacy: [id number] [id number] [facility] Pending Prescriptions: Disp Refills Latanoprost 0.005 % Ophthalmic Solution (*7.5 mL 2 Sig: INSTILL 1 DROP INTO BOTH EYES AT BEDTIME Last Visit: 12/29/2022 (in office), Visit date not found (telemedicine) Next Visit: 04/08/2023 If no future appointments scheduled, and last [...] Office Visit Family Medicine Alissa Moran PA-C [address] [place] [address] [place] [address] 04/17/2023 Office Visit Gastroenterology Myah Holloway CRNP [address] [place] [address] 05/04/2023 Imaging Radiology 06/03/2023 Office Visit [facility] Disease [facility] [address] [facility] [place] [address] 07/10/2023 Office Visit Family Medicine Ernesto Harper DO [address] [facility] [place] [address] 08/10/2023 Office Visit Rheumatology Brandon Lewis MD [address] [place] [address] Health Maintenance Due Date Last Done Comments [...] Additional history exists CKD PHOS USE SMARTSET 52561 04/15/2023 08/0 10/2021, 03/12/2021, 07/19/2019, Additional history exists Influenza Vaccine (FLU shot) (#1) 2023 06/14/2018, 06/22/2017, 08/12/2016, Additional history exists DIABETES-FOOT EXAM 06/10/2023 06/10/2022, 0 06/12/2021, 03/06/2020, Additional history exists HbA1c 06/30/2023 12/29/2022, 0903/2022, 11/22/2021, Additional history exists DIABETES-EYE EXAM 07/03/2023 07/03/2022, , 04/12/2020, Additional history exists GFR 07/15/2023 01/12/2023, 12/13, 10/15/2022, Additional history exists CKD HGB USE SMARTSET 53607 10/15/202310/15, 10/15/2022, 09/10/2022, Additional history exists O2 ASSESSMENT COMPLETED IN PAST YEAR FOR COPD 10/15/2023 10/15/2022 Pneumococcal Vaccine: 65+ Years Completed 03/05/2017, 06/28/2015, 11/25/2011, Additional history exists Fecal Occult Blood Test Discontinued 09/23/19, 08/06/2018, 02/21/2004 VITAMIN D LEVEL ONCE IN A LIFETIME-USE SMARTSET# [id number] Completed 10/18/2020, 03/06/2020, 03/26/2018, Additional history exists [...] this encounter Medical Devices Implanted Type Area Thermoforming Machine Operator Device Identifier Shelf Expiration Date Model / Serial / Lot Lens 19.5 Sn60wf - [id number] - [id number] Implanted:Qty: 1 on 11/21/2016 by Faraz Jeffers MD at OR [facility] Left: Eye RAMÓN : SURGICAL 05/14/2021 SN60WF.1 95 / [id number] 2 / Lens 19.5 Sn60wf - [id number] - [id number] Implanted:Qty: 1 on 04/22/2019 by Faraz Jeffers MD at OR [facility] Right: Eye RAMÓN : SURGICAL 07/14/2023 [id number].[id number] / [id number] / documented as of this encounter Visit Diagnoses Diagnosis Primary open angle glaucoma of both eyes, mild stage documented in this encounter Advance Directives Latest [...] and were consensually agreed upon. Care Teams Lump Room Supervisor Relationship Specialty Start Date End Date Ernesto Harper, [address] [place] [address] PCP - General Internal Medicine 11/18/17 documented as of this encounter
--- OUTSIDE RECORDS SUMMARY | 2023-09-05 18:45 | External Medical Summary | Summary of Care ---
Author Name Unknown Organization [facility] Address [address] [facility] [address] Phone [phone] Care Team Providers Care Certified Veterinary Technician Name Role Phone Leni Moyer DO Primary Care Provider Reason for Visit * Reason Onset Date Comments Medication Question 03/30/2023 Encounter Details Date Type Department Care Team Description 03/30/2023 Telephone Family Medicine [address] [place] [address] Leni Moyer DO [address] [place] [address] [place] [address] Medication Question Allergies Active Allergy Reactions Severity Noted Date Comments Influenza Virus Vac Live Quad High 2020 2 years ago, flown to [facility] Methotrexate 08/19/2013 pneumonitis Other Allergy (See Comments) Rash 012 Insecticides cause breathing problems Penicillins Hives 02/01/2001 Ranitidine Rash 07/14/2001 documented as of this encounter (statuses as of 03/30/2023) Medications Medication Sig Dispensed Refills Start Date End Date Status ONETOUCH ULTRASOFT LANCETS MISC Check BS twice daily. E 11.9 1 Box Dosing Unit 11 12/15/2016 Active Nystatin (NYSTOP) 390481 UNIT/GM powderIndications:C utaneous candidiasis APPLY TOPICALLY TO AFFECTED AREA 3 TIMES A DAY. SPRINKLE OVER AFFECTED AREA. 15 g 2 12/15/2016 Active triamcinolone acetonide (ARISTOCORT) 0.1 % creamIndications:Pr uritic condition Apply topically to affected area 2 times a day. To affected area. 60 g 5 07/23/2017 Active Blood Glucose Monitoring Suppl (iCabbi SYSTEM) w/Device KIT Twice daily. Dx E 11.9 1 Kit 0 12/25/2017 Active Glucose Blood (NorseTOUCH ULTRA BLUE) STRPIndications:Typ e 2 diabetes mellitus [...] the morning. 30 Tablet 0 10/01/2022 Active Latanoprost 0.005 % Ophthalmic Solution (Xalatan)Indication [...] in 60 to 180 days Given at [facility] 1 Each 1 12/29/2022 Active Vancomycin [...] mouth daily. 100 Tablet 2 03/30/2023 Active DULoxetine HCl 30 MG Oral Capsule Delayed Release Particles (Cymbalta)Indicatio ns:Generalized osteoarthritis of multiple sites,Degeneration of lumbosacral intervertebral disc,Adjustment disorder with anxious mood TAKE 2 CAPSULES BY MOUTH EVERY DAY 200 Capsule 1 10/01/2022 03/30/20 23 Discontinu ed(Refill) Folic Acid 1 MG Oral TabletIndications:R heumatoid arthritis (HCC) Take 1 Tab by mouth daily. 90 Tablet 2 10/01/2022 03/30/20 23 Discontinu ed(Refill) documented as of this encounter (statuses as of 03/30/2023) Active Problems Problem Noted Date Pressure ulcer [...] th eyes, mild stage 04/02/2022 History of MD (myocardial infarction) Neutropenia 04/02/2022 Last Assessment & [...] Age-related osteoporosis without current pathological fracture 06/08/2020 assisted current use of therapeutic elysia g 03/06/2020 Chronic right-sided heart failure 2019 Major depressive disorder, recurrent epi sode, in partial remission 11/03/2019 Last Assessment & Plan: Managed well with Cymbalta 60 mg daily Gastroesophageal reflux disease without esophagitis 11/03/2019 Last Assessment & Plan: Managed with pantoprazole 40 mg daily Coronary artery disease invo lving nenana coronary artery of nenana heart without angina pectoris 11/03/2019 Last Assessment [...] as of this encounter (statuses as of 03/30/2023) Resolved Problems Problem Noted Date Resolved Date [...] ICD-10 update of inactive term LOC PRIM [id number] 04/12/2003 04/15/20 17 PURE HYPERCHOLESTEROLEM 12/27/2001 08/03/20 [...] COPD, moderate 12/05/2014 CAD (coronary artery disease), nenana coronary a rtery 02/24/2022 Overview: duplicate documented as of this encounter (statuses as of 03/30/2023) Immunizations Name Administration Dates Next Due COVID-19 [...] encounter Miscellaneous Notes * Telephone Encounter - Leni Moyer DO - 03/30/2023 3:32 PM EDT Sent. * Telephone Encounter - Irish Brewer CPhT - 03/30/2023 1:03 PM EDT Pt ec calling requesting refills for Folic Acid 1 MG Oral Tablet. Upon chart review, medication waslast prescribed by [facility]. Please advise if you wish to continue this therapy for the patient. Pt ec calling requesting refills for DULoxetine HCl 30 MG Oral Capsule Delayed Release Particles (Cymbalta). Upon chart review, medication was last prescribed by [facility]. Please advise if you wish to continue this therapy for the patient. Pt would like 90 day supplies. Thank you, Irish Brewer Electromechanical Technician [facility] ([facility]) 03/30/2023, 1:04 PM documented in this encounter Plan of Treatment Upcoming Encounters Date Type Specialty Care Team Description 04/08/2023 Office Visit Family Medicine Alissa Moran PA-C [address] [place] [address] [place] [address] 04/17/2023 Office Visit Gastroenterology Myah Holloway CRNP [address] [place] [address] 05/04/2023 Imaging Radiology 06/03/2023 Office Visit Infectious Disease Ami Addison MD [address], [place] [id number] 07/10/2023 Office Visit Family Medicine Leni Moyer DO [address] [place] [address] [place] [address] 08/10/2023 Office Visit Rheumatology Brandon Lewis MD [address] [place] [address] Health Maintenance Due Date Last Done Comments [...] Additional history exists CKD PHOS USE SMARTSET 55558 04/15/2023 08/0 10/2021, 03/12/2021, 07/19/2019, Additional history exists Influenza Vaccine (FLU shot) (#1) 2023 06/14/2018, 06/22/2017, 08/12/2016, Additional history exists DIABETES-FOOT EXAM 06/10/2023 06/10/2022, 0 06/12/2021, 03/06/2020, Additional history exists HbA1c 06/30/2023 12/29/2022, 05/16, 11/22/2021, Additional history exists DIABETES-EYE EXAM 07/03/2023 07/03/2022, , 04/12/2020, Additional history exists GFR 07/15/2023 01/12/2023, 0403/2023, 10/15/2022, Additional history exists CKD HGB USE SMARTSET 95530 10/15/202310/15, 10/15/2022, 09/10/2022, Additional history exists O2 ASSESSMENT COMPLETED IN PAST YEAR FOR COPD 10/15/2023 10/15/2022 Pneumococcal Vaccine: 65+ Years Completed 03/05/2017, 06/28/2015, 11/25/2011, Additional history exists Fecal Occult Blood Test Discontinued 09/23/19, 08/06/2018, 02/21/2004 VITAMIN D LEVEL ONCE IN A LIFETIME-USE SMARTSET# [id number] Completed 10/18/2020, 03/06/2020, 03/26/2018, Additional history exists [...] this encounter Medical Devices Implanted Type Area Optometric Assistant Device Identifier Shelf Expiration Date Model / Serial / Lot Lens 19.5 Sn60wf - [id number] - [id number] Implanted:Qty: 1 on 11/21/2016 by Faraz Jeffers MD at OR [facility] Left: Eye RAMÓN : SURGICAL 05/14/2021 SN60WF.1 95 / [id number] 2 / Lens 19.5 Sn60wf - [id number] - [id number] Implanted:Qty: 1 on 04/22/2019 by Faraz Jeffers MD at OR [facility] Right: Eye RAMÓN : SURGICAL 07/14/2023 SN60WF.195 / [id number] / documented as of this encounter Visit Diagnoses Diagnosis Generalized osteoarthritis of multiple sites Generalized osteoarthrosis, involving multiple sites LUMB-LUMBOSAC DISC DEGEN Degeneration of lumbar or lumbosacral intervertebral disc Adjustment disorder with anxious mood Adjustment disorder with anxiety Rheumatoid arthritis (HCC) documented in this encounter Advance Directives [...] and were consensually agreed upon. Care Teams Certified Veterinary Technician Relationship Specialty Start Date End Date Leni Moyer[address] [place] [address] PCP - General Internal Medicine 11/18/17 documented as of this encounter
--- OUTSIDE RECORDS SUMMARY | 2023-09-05 18:45 | External Medical Summary ---
Author Name Unknown Address Unknown Organization K01:[facility] - [address] [place] [address] Laboratory Report Ordering Provider Test Date Status RICHELLE ROMERO 04/08/2023 14:23:30 Final Normal: <30 mg/g creatinine< br/>High: 30-300 mg/g creatinine
Very High: >300 mg/g creatinine
Nephrotic: >2200 mg/g creatinine Observation Date Value Abnormality Reference (Units ) Status Albumin, Urine 04/08/2023 14:23:30 3.23 (mg/dL) Final Creatinine, Urine 04/08/2023 14:23:30 54 (mg/dL) Final Albumin/Creatinine [Mass Ratio] in Urine 04/08/2023 14:23:30 60 Above high normal <30 (mg/g Creat) Final Performing Location [facility] - [address] [place] [address]
--- OUTSIDE RECORDS SUMMARY | 2023-09-05 18:45 | External Medical Summary | Summary of Care ---
Author Name Unknown Organization [facility] Address [address] [facility] [address] Phone [phone] Care Team Providers Care Cage Tender Name Role Phone Leni Moyer DO Primary Care Provider Reason for Visit * Reason Onset Date Comments Advice 03/18/2023 Encounter Details Date Type Department Care Team Description 03/18/2023 Telephone Family Medicine [address] [place] [address] Leni Moyer DO [address] [place] [address] [place] [address] Advice Allergies Active Allergy Reactions Severity Noted Date Comments Influenza Virus Vac Live Quad High 2020 2 years ago, flown to [facility] Methotrexate 08/19/2013 pneumonitis Other Allergy (See Comments) Rash 012 Insecticides cause breathing problems Penicillins Hives 02/01/2001 Ranitidine Rash 07/14/2001 documented as of this encounter (statuses as of 03/20/2023) Medications Medication Sig Dispensed Refills Start Date End Date Status ONETOUCH ULTRASOFT LANCETS MISC Check BS twice daily. E 11.9 1 Box Dosing Unit 11 12/15/2016 Active Nystatin (NYSTOP) 932123 UNIT/GM powderIndications:C utaneous candidiasis APPLY TOPICALLY TO AFFECTED AREA 3 TIMES A DAY. SPRINKLE OVER AFFECTED AREA. 15 g 2 12/15/2016 Active triamcinolone acetonide (ARISTOCORT) 0.1 % creamIndications:Pr uritic condition Apply topically to affected area 2 times a day. To affected area. 60 g 5 07/23/2017 Active Blood Glucose Monitoring Suppl (PlanetHS ULTRA SYSTEM) w/Device KIT Twice daily. Dx E 11.9 1 Kit 0 12/25/2017 Active Glucose Blood (IntellitixTOUCH ULTRA BLUE) STRPIndications:Typ e 2 diabetes mellitus with hemoglobin A1c goal of less than 7.0% ([facility]) Check BS twice daily E11.9 [...] 10/01/2022 Active Folic Acid 1 MG Oral TabletIndications:R [...] MOUTH DAILY. 45 Tablet 1 10/01/2022 Active Mirtazapine 15 MG Oral Tablet (Remeron) [...] in 60 to 180 days Given at [facility] 1 Each 1 12/29/2022 Active predniSONE 5 MG Oral Tablet (Deltasone) TAKE ONE TABLET BY MOUTH EVERY DAY 90 Tablet 1 03/03/2023 Active Metoprolol Succinate ER 25 MG Oral Tablet Extended Release 24 Hour (toPROL XL) Take 1 Tablet by mouth in the morning. 100 Tablet 1 03/11/2023 Active Vancomycin HCl 125 MG Oral Capsule (Vancocin) Take 1 Capsule by mouth every 6 hours. 360 Capsule 0 03/18/2023 Active Vancomycin HCl 125 MG Oral Capsule (Vancocin) Take 1 Capsule by mouth every 6 hours. 360 Capsule 0 10/21/2022 03/18/20 23 Discontinu ed(Refill) documented as of this encounter (statuses as of 03/20/2023) Active Problems Problem Noted Date Pressure ulcer [...] Age-related osteoporosis without current pathological fracture 06/08/2020 [facility] current use of therapeutic elysia g 03/06/2020 Chronic right-sided heart failure 2019 Major depressive disorder, recurrent epi sode, in partial remission 11/03/2019 Last Assessment & Plan: Managed well with Cymbalta 60 mg daily Gastroesophageal reflux disease without esophagitis 11/03/2019 Last Assessment & Plan: Managed with pantoprazole 40 mg daily Coronary artery disease invo lving hoopa coronary artery of hoopa heart without angina pectoris 11/03/2019 Last Assessment [...] as of this encounter (statuses as of 03/20/2023) Resolved Problems Problem Noted Date Resolved Date [...] ICD-10 update of inactive term LOC PRIM [id number] 04/12/2003 04/15/20 17 PURE HYPERCHOLESTEROLEM 12/27/2001 08/03/20 [...] COPD, moderate 12/05/2014 CAD (coronary artery disease), hoopa coronary a rtery 02/24/2022 Overview: duplicate documented as of this encounter (statuses as of 03/20/2023) Immunizations Name Administration Dates Next Due COVID-19 [...] Telephone Encounter - Giovany Mendez LPN - 03/20/2023 2:21 PM EDT Provider to address: Reason for Call: Advice Contact: Telephone Call Contact Type: Medication Outcome: Informed Of info Below Total Time including non face to face (minutes): 5 * Telephone Encounter - Leni Moyer DO - 03/18/2023 4:11 PM EDT Vancomycin 4 times per day until stools reform to baseline, then call for further direction. Refill sent to local pharmacy. * Telephone Encounter - Saba Gonzalez RN - 03/18/2023 2:15 PM EDT Please advise about the vancomycin, then we will call and see what else is going on * Telephone Encounter - LORAINE Scruggs - 03/18/2023 12:48 PM EDT Pt's called stating he restarted pt on the Vancomycin Momnday night and the pt is almost out of the Rx. She only has enough through to the weekend. Mr. Rodriguez needs to know how long to keep the pt on the medication. Pt is actually doing little better no fever. Also pt's has questions regarding other medications. Please call [phone] documented in this encounter Plan of Treatment Upcoming Encounters Date Type Specialty Care Team Description 04/08/2023 Office Visit Family Medicine Alissa Moran PA-Erwin [address] [place] [address] [place] [address] 04/17/2023 Office Visit Gastroenterology Myah Holloway CRNP [address] [place] [address] 05/04/2023 Imaging Radiology 06/03/2023 Office Visit Infectious Disease [facility]ison [facility] [address] [facility] [place] [id number] 07/10/2023 Office Visit Family Medicine Leni Moyer DO [address] [place] [address] [place] [address] 08/10/2023 Office Visit Rheumatology Brandon Lewis MD [address] [place] [address] Health Maintenance Due Date Last Done Comments [...] Additional history exists CKD PHOS USE SMARTSET 53526 04/15/2023 08/0 10/2021, 03/12/2021, 07/19/2019, Additional history exists Influenza Vaccine (FLU shot) (#1) 2023 06/14/2018, 06/22/2017, 08/12/2016, Additional history exists DIABETES-FOOT EXAM 06/10/2023 06/10/2022, 0 06/12/2021, 03/06/2020, Additional history exists HbA1c 06/30/2023 12/29/2022, 05/16, 11/22/2021, Additional history exists DIABETES-EYE EXAM 07/03/2023 07/03/2022, , 04/12/2020, Additional history exists GFR 07/15/2023 01/12/2023, 0403/2023, 10/15/2022, Additional history exists CKD HGB USE SMARTSET 85757 10/15/202310/15, 10/15/2022, 09/10/2022, Additional history exists O2 ASSESSMENT COMPLETED IN PAST YEAR FOR COPD 10/15/2023 10/15/2022 Pneumococcal Vaccine: 65+ Years Completed 03/05/2017, 06/28/2015, 11/25/2011, Additional history exists Fecal Occult Blood Test Discontinued 09/23/19, 08/06/2018, 02/21/2004 VITAMIN D LEVEL ONCE IN A LIFETIME-USE SMARTSET# 86642 Completed 10/18/2020, 03/06/2020, 03/26/2018, Additional history exists [...] this encounter Medical Devices Implanted Type Area Helmet Hat Brim Cutter Device Identifier Shelf Expiration Date Model / Serial / Lot Lens 19.5 Sn60wf - [id number] - [id number] Implanted:Qty: 1 on 11/21/2016 by Faraz Jeffers MD at OR [facility] Left: Eye RAMÓN : SURGICAL 05/14/2021 SN60WF.1 95 / [id number] / Lens 19.5 Sn60wf - [id number] - [id number] Implanted:Qty: 1 on 04/22/2019 by Faraz Jeffers MD at OR [facility] Right: Eye RAMÓN : SURGICAL 07/14/2023 SN60WF.195 / [id number] / documented as of this encounter [...] and were consensually agreed upon. Care Teams Cage Tender Relationship Specialty Start Date End Date Leni Moyer[address] [place] [address] PCP - General Internal Medicine 11/18/17 documented as of this encounter
--- OUTSIDE RECORDS SUMMARY | 2023-09-05 18:45 | External Medical Summary | Summary of Care ---
Author Name Unknown Organization [facility] Address [address] [facility] [address] Phone [phone] Care Team Providers Care Change Management Administrator Name Role Phone Leni Moyer DO Primary Care Provider [phone] Reason for Visit * Reason Onset Date Comments Medication Refill 03/10/2023 Encounter Details Date Type Department Care Team Description 03/10/2023 Refill Family Medicine [address] [place] [id number] Leni Moyer DO [address] [place] [address] [place] [address] Allergies Active Allergy Reactions Severity Noted Date Comments Influenza Virus Vac Live Quad High 2020 2 years ago, flown to [facility] Methotrexate 08/19/2013 pneumonitis Other Allergy (See Comments) Rash 012 Insecticides cause breathing problems Penicillins Hives 02/01/2001 Ranitidine Rash 07/14/2001 documented as of this encounter (statuses as of 04/01/2023) Medications Medication Sig Dispensed Refills Start Date End Date Status ONETOUCH ULTRASOFT LANCETS MISC Check BS twice daily. E 11.9 1 Box Dosing Unit 11 12/15/2016 Active Nystatin (NYSTOP) 887079 UNIT/GM powderIndications:C utaneous candidiasis APPLY TOPICALLY TO AFFECTED AREA 3 TIMES A DAY. SPRINKLE OVER AFFECTED AREA. 15 g 2 12/15/2016 Active triamcinolone acetonide (ARISTOCORT) 0.1 % creamIndications:Pr uritic condition Apply topically to affected area 2 times a day. To affected area. 60 g 5 07/23/2017 Active Blood Glucose Monitoring Suppl ([employer] SYSTEM) w/Device KIT Twice daily. Dx E 11.9 1 Kit 0 12/25/2017 Active Glucose Blood (KamidaTOUCH ULTRA BLUE) STRPIndications:Typ e 2 diabetes mellitus [...] [place] 1 Each 1 12/29/2022 Active documented as of this encounter (statuses as of 04/01/2023) Active Problems Problem Noted Date Pressure ulcer [...] mg daily Coronary artery disease invo lving qagan tayagungin coronary artery of qagan [place] heart without angina pectoris 11/03/2019 Last Assessment [...] as of this encounter (statuses as of 04/01/2023) Resolved Problems Problem Noted Date Resolved Date [...] ICD-10 update of inactive term LOC PRIM [id number] 04/12/2003 04/15/20 17 PURE HYPERCHOLESTEROLEM 12/27/2001 08/03/20 [...] COPD, moderate 12/05/2014 CAD (coronary artery disease), qagan tayagungin coronary a rtery 02/24/2022 Overview: duplicate documented as of this encounter (statuses as of 04/01/2023) Immunizations Name Administration Dates Next Due COVID-19 [...] encounter Miscellaneous Notes * Telephone Encounter - Lorraine Michaud - 03/10/2023 10:47 AM EDT Did you pend patient's preferred pharmacy and medication before forwarding?yes Pharmacy: [facility] [place] Pending Prescriptions: Disp Refills Metoprolol Succinate ER 25 MG Oral Tablet*30 Tab*5 Sig: Take 1 Tablet by mouth in the morning. Last Visit: 12/29/2022 (in office), Visit date not found (telemedicine) Next Visit: 03/31/2023 If no future appointments scheduled, and last [...] Description 04/08/2023 Office Visit Family Medicine Alissa Moran, PA-C [address] [place] [address] [place] [address] 04/17/2023 Office Visit Gastroenterology Myah Holloway CRNP [address] [place] [address] 05/04/2023 Imaging Radiology 06/03/2023 Office Visit Infectious Disease Ami Addison MD [address] [place] [address] 07/10/2023 Office Visit Family Medicine Leni Moyer DO [address] [place] [address] [place] [address] 08/10/2023 Office Visit Rheumatology Brandon Lewis MD [facility] [place] [address] Health Maintenance Due Date Last Done Comments [...] Additional history exists CKD PHOS USE SMARTSET 07322 04/15/2023 08/0 10/2021, 03/12/2021, 07/19/2019, Additional history exists Influenza Vaccine (FLU shot) (#1) 2023 06/14/2018, 06/22/2017, 08/12/2016, Additional history exists DIABETES-FOOT EXAM 06/10/2023 06/10/2022, 0 06/12/2021, 03/06/2020, Additional history exists HbA1c 06/30/2023 12/29/2022, 05/16, 11/22/2021, Additional history exists DIABETES-EYE EXAM 07/03/2023 07/03/2022, , 04/12/2020, Additional history exists GFR 07/15/2023 01/12/2023, 04/03/2023, 10/15/2022, Additional history exists CKD HGB USE SMARTSET 98094 10/15/202310/15, 10/15/2022, 09/10/2022, Additional history exists O2 ASSESSMENT COMPLETED IN PAST YEAR FOR COPD 10/15/2023 10/15/2022 Pneumococcal Vaccine: 65+ Years Completed 03/05/2017, 06/28/2015, 11/25/2011, Additional history exists Fecal Occult Blood Test Discontinued 09/23/19, 08/06/2018, 02/21/2004 VITAMIN D LEVEL ONCE IN A LIFETIME-USE SMARTSET# [id number] Completed 10/18/2020, 03/06/2020, 03/26/2018, Additional history exists [...] this encounter Medical Devices Implanted Type Area Archivist [employer] Device Identifier Shelf Expiration Date Model / Serial / Lot Lens 19.5 Sn60wf - [id number] - [id number] Implanted:Qty: 1 on 11/21/2016 by Faraz Jeffers MD at OR [facility] Left: Eye RAMÓN : SURGICAL 05/14/2021 SN60WF.1 95 / [id number] / Lens 19.5 Sn60wf - [id number] - [id number] Implanted:Qty: 1 on 04/22/2019 by Faraz Jeffers MD at OR [facility] Right: Eye RAMÓN : SURGICAL 07/14/2023 SN60WF.195 / [id number] / documented as of this encounter [...] and were consensually agreed upon. Care Teams Change Management Administrator Relationship Specialty Start Date End Date Leni Moyer[address] [place] [address] PCP - General Internal Medicine 11/18/17 documented as of this encounter
--- OUTSIDE RECORDS SUMMARY | 2023-09-05 18:45 | External Medical Summary | Summary of Care ---
Author Name Unknown Organization [facility] Address [address] [place] [address] Phone [phone] Care Team Providers Care Residency Program Coordinator Name Role Phone Leni Moyer DO Primary Care Provider Reason for Visit * Reason Onset Date Comments Medication Refill 03/11/2023 Encounter Details Date Type Department Care Team Description 03/11/2023 Telephone Family Medicine [address] [phone] Leni oMyer DO [address] [place] [address] [place] [address] Medication Refill Allergies Active Allergy Reactions Severity Noted Date Comments Influenza Virus Vac Live Quad High 2020 2 years ago, flown to [facility] Methotrexate 08/19/2013 pneumonitis Other Allergy (See Comments) Rash 012 Insecticides cause breathing problems Penicillins Hives 02/01/2001 Ranitidine Rash 07/14/2001 documented as of this encounter (statuses as of 03/11/2023) Medications Medication Sig Dispensed Refills Start Date End Date Status ONETOUCH ULTRASOFT LANCETS MISC Check BS twice daily. E 11.9 1 Box Dosing Unit 11 12/15/2016 Active Nystatin (NYSTOP) 661805 UNIT/GM powderIndications:Cu taneous candidiasis APPLY TOPICALLY TO AFFECTED AREA 3 TIMES A DAY. SPRINKLE OVER AFFECTED AREA. 15 g 2 12/15/2016 Active triamcinolone acetonide (ARISTOCORT) 0.1 % creamIndications:Pru ritic condition Apply topically to affected area 2 times a day. To affected area. 60 g 5 07/23/2017 Active Blood Glucose Monitoring Suppl ([employer] ULTRA SYSTEM) w/Device KIT Twice daily. Dx E 11.9 1 Kit 0 12/25/2017 Active Glucose Blood (KiwigridTOUCH ULTRA BLUE) STRPIndications:Type 2 diabetes mellitus with hemoglobin A1c goal of less than 7.0% ([facility]) Check BS twice daily E11.9 [...] in 60 to 180 days Given at [facility] 1 Each 1 12/29/2022 Active predniSONE 5 MG Oral Tablet (Deltasone) TAKE ONE TABLET BY MOUTH EVERY DAY 90 Tablet 1 03/03/2023 Active Metoprolol Succinate ER 25 MG Oral Tablet Extended Release 24 Hour (toPROL XL) Take 1 Tablet by mouth in the morning. 100 Tablet 1 03/11/2023 Active documented as of this encounter (statuses as of 03/11/2023) Active Problems Problem Noted Date Pressure ulcer [...] th eyes, mild stage 04/02/2022 History of LA (myocardial infarction) Neutropenia 04/02/2022 Last Assessment & [...] Age-related osteoporosis without current pathological fracture 06/08/2020 USP current use of therapeutic elysia g 03/06/2020 [...] as of this encounter (statuses as of 03/11/2023) Resolved Problems Problem Noted Date Resolved Date [...] ICD-10 update of inactive term LOC PRIM [id number] 04/12/2003 04/15/20 17 PURE HYPERCHOLESTEROLEM 12/27/2001 08/03/20 [...] as of this encounter (statuses as of 03/11/2023) Immunizations Name Administration Dates Next Due COVID-19 [...] encounter Miscellaneous Notes * Telephone Encounter - Ana Alvarado CPhT - 03/11/2023 8:08 AM EDT pharmacy calling requesting the following medication below that is listed as "Historical". The following information was provided: Medication Name: metoprolol ER Strength: 50mg Directions: qd Preferred Quantity: 100 Previous Prescriber: Leni Moyer Preferred Pharmacy: [facility] [place] Please review and approve if appropriate. Thank you, Ana Alvarado CphT Intake Manager III [facility]) (formerly Telepharmacy) 03/11/2023,8:09 AM documented in this encounter Plan of Treatment Upcoming Encounters Date Type Specialty Care Team Description 03/31/2023 Office Visit Family Medicine Alissa Moran PA-C [address] [place] [address] [place] [address] 04/17/2023 Office Visit Gastroenterology Myah Holloway CRNP [address] [place] [address] 05/04/2023 Imaging Radiology 06/03/2023 Office Visit Infectious Disease [facility] [address] [facility] [address] 07/10/2023 Office Visit Family Medicine Leni Moyer DO [address] [place] [address] [place] [address] 08/10/2023 Office Visit Rheumatology Brandon Lewis MD [facility], [place] [address] Health Maintenance Due Date Last Done Comments [...] Additional history exists CKD PHOS USE SMARTSET 08816 04/15/2023 08/0 10/2021, 03/12/2021, 07/19/2019, Additional history exists Influenza Vaccine (FLU shot) (Season Ended) 2023 06/14/2018, 06/22/2017, 08/12/2016, Additional history exists DIABETES-FOOT EXAM 06/10/2023 06/10/2022, 0 06/12/2021, 03/06/2020, Additional history exists HbA1c 06/30/2023 12/29/2022, 05/16, 11/22/2021, Additional history exists DIABETES-EYE EXAM 07/03/2023 07/03/2022, , 04/12/2020, Additional history exists GFR 07/15/2023 01/12/2023, 12/13, 10/15/2022, Additional history exists CKD HGB USE SMARTSET 46242 10/15/202310/15, 10/15/2022, 09/10/2022, Additional history exists O2 ASSESSMENT COMPLETED IN PAST YEAR FOR COPD 10/15/2023 10/15/2022 Pneumococcal Vaccine: 65+ Years Completed 03/05/2017, 06/28/2015, 11/25/2011, Additional history exists Fecal Occult Blood Test Discontinued 09/23/19, 08/06/2018, 02/21/2004 VITAMIN D LEVEL ONCE IN A LIFETIME-USE SMARTSET# [id number] Completed 10/18/2020, 03/06/2020, 03/26/2018, Additional history exists [...] this encounter Medical Devices Implanted Type Area Flue Gas Analyst Device Identifier Shelf Expiration Date Model / Serial / Lot Lens 19.5 Sn60wf - [id number] - [id number] Implanted:Qty: 1 on 11/21/2016 by Faraz Jeffers MD at OR [facility] Left: Eye RAMÓN : SURGICAL 05/14/2021 SN60WF.1 95 / [id number] / Lens 19.5 Sn60w - [id number] - [id number] Implanted:Qty: 1 on 04/22/2019 by Faraz Jeffers MD at [facility] Right: Eye RAMÓN : SURGICAL 07/14/2023 SN60WF.195 / [id number] / documented as of this encounter [...] and were consensually agreed upon. Care Teams Residency Program Coordinator Relationship Specialty Start Date End Date Leni Moyer[address] [place] [address] PCP - General Internal Medicine 11/18/17 documented as of this encounter
--- NOTE | 2023-09-05 18:49 | Emergency Department Note ---
Impression & Plan Sepsis, Acute metabolic encephalopathy, Atrial fibrillation with rapid ventricular response, Elevated lactic acid level ED Provider Note NAME: GRACE ELLINGTON AGE: 77 SEX: F : 1945 ARRIVES VIA: Walk-In INFORMANT: Patient, ED PROVIDER(S): Americo Bejarano MD CHIEF COMPLAINT: Fever, cough, decreased responsiveness MEDICAL DECISION MAKING: Patient presents due to concern for decreased responsiveness fever and cough. The patient does have some coarse breath sounds more prominent in the right chest. The patient was placed on BiPAP sepsis protocols were initiated the patient was treated with cefepime instead of Zosyn given the patient's penicillin allergy patient was ordered IV fluids VBG [id number] BMP procalcitonin and lactate I did perform bedside echo which may have showed some decreased function but no obvious pericardial effusion no B-lines. IVC likely could tolerate some additional IV fluids. Patient has a normal white count normal hemoglobin and platelet count. The patient's kidney function with ANDRESSA likely consistent with some dehydration. The patient's lactate was noted to be 6.5. Patient was ordered additional IV fluids. Troponin 1190. No obvious STEMI. Pro-Seng 4.2. I did speak with on-call commercial artist lettering who did review the patient's prior history and does agree with an echo in the morning but that the patient's most recent echo about a year ago showed a normal EF at that time. Bio fire negative. He does agree with heparin. Repeat lactate 2.5. Patient has tolerated BiPAP well. I did speak the on-call medicine service Dr. Gutierrez and the patient was admitted to the medicine service. Critical Care: I have personally spent 95 minutes of critical care time in direct management of this patient. This includes bedside care, interpretation of diagnostic studies, and testing, discussion with consultants, patient, and family members, and other require inpatient management activities. This 95 minutes is in excess of all separately billable procedures. Procedures: Limited Point of Care Cardiac Ultrasound performed by me: Indication: Tachycardia Findings: Limited echocardiography revealed no pericardial fluid. EF appeared to be decreased. HR 100s and irregular. Additional findings: IVC with mild respiratory variability Impression: Possible CHF Discussion w/ other healthcare providers: Dr. Meza cardiology Dr. Gutierrez inpatient medicine service Prior /Outside records reviewed: I reviewed an office visit note from Dr. Moyer from July 10, 2023. Patient was seen at that time for recheck for similar symptoms for today's visit which noted the patient gets fevers between 10 1-1 03 about once a month and gets confused. Patient is reportedly on chronic vancomycin. The patient does have a prior history of CAD hypertension paroxysmal A-fib patient is on metoprolol succinate ER 25 every morning. Patient is on chronic steroids. Patient is on Plavix. Differential diagnosis: Dehydration, UTI, pneumonia, metabolic derangment, electrolyte abnormalities, hypovolemia, anemia, cellulitis among others were considered. Diagnostics, as interpreted by me: ECG: Likely A-fib with ventricular rate of 135 borderline QRS with right bundle branch block pattern. No obvious ST elevations. Overall morphology other than A-fib appears grossly unchanged for comparison May 08, 2023. Cardiac monitoring: An order was placed for continuous cardiac monitoring. The monitor shows a rate of 115 with irregular rhythm. Patient was placed on pulse oximetry Medical decision rules: None Imaging studies: I informally interpreted the patient's chest x-ray which does not show obvious pneumonia or pneumothorax with formal report to follow. HPI: Patient presents due to concern for decreasing responsiveness initially cough and fever. The patient has had cough for several days. Fever bleeding last evening at 102. The patient did take her morning medications. The patient does have a known history of UTIs. Patient has been less responsive throughout the day and not eating or drinking at all today. No reported falls or trauma. at bedside who provides all of the history does not know if she is on any blood thinning medications. Reviewed the patient's medication list the patient is on Plavix. No reported diarrhea or vomiting patient is a non-smoker. PAST MEDICAL HISTORY: See Below PAST SURGICAL HISTORY: See Below SOCIAL HISTORY: See Below HOME MEDICATIONS: See Below ALLERGIES: See Below VITALS: See Below PHYSICAL EXAMINATION: GENERAL: Ill in appearance. EYE EXAM: Normal conjunctiva. PERRL, no anisocoria and EOM's grossly intact w/o pain. OROPHARYNX: Dry mucus membranes, grossly normal dentition. NECK: Supple, no nuchal rigidity, no adenopathy, non-tender. No signs of meningismus. FROM of the neck with good chin to chest and neck extension. No stridor. LUNGS: Coarse sounds most prominent in right chest normal chest wall mechanics. HEART: NSR, no MRG. ABDOMEN: Abdomen soft, non-tender, no masses, no rebound or guarding. BACK: No CVA TTP. SKIN: No rashes and no bruising. UPPER EXTREMITIES: Upper extremities are grossly normal. LOWER EXTREMITIES: Grossly normal, no edema. NEURO EXAM: A&O x3, cranial nerves II-XII grossly intact, normal speech, moves all 4 extremities. Past Med/Surg History Medical History Wrist fracture, left History of stroke Thrush, oral Hyponatremia Nontraumatic rectus hematoma NSTEMI (non-ST elevated myocardial infarction) UTI (urinary tract infection) Immunosuppressed status DVT prophylaxis CKD (chronic kidney disease), stage III Acute hyponatremia Abnormal ECG Elevated troponin Syncope NSTEMI (non-ST elevated myocardial infarction) Visual hallucinations Hyponatremia RSV infection Recurrent Clostridium difficile diarrhea Chronic steroid use prednisone daily Gout H/O interstitial lung disease "drug induced- methotrexate " Osteoarthritis Glaucoma Peripheral neuropathy Dyslipidemia Rheumatoid arthritis "on chronic steroids" COPD (chronic obstructive pulmonary disease) inhalers prn Depression CKD (chronic kidney disease), stage III Gastroparesis DM type 2 (diabetes mellitus, type 2) GERD (gastroesophageal reflux disease) Migraines DJD of right shoulder NSTEMI (non-ST elevated myocardial infarction) (08/06/13) Asthma inhalers prn HTN (hypertension) Heart disease Surgical History History of tooth extraction all top teeth History of esophagogastroduodenoscopy (EGD) H/O cardiac catheterization "cath 07/2013- single vessel CAD involving apical segment LAD, medical management indicated" S/P total knee arthroplasty "left knee" History of hysterectomy H/O colonoscopy S/P rotator cuff repair "right shoulder" S/P removal of ovarian cyst Family History Father Family history of diabetes mellitus Mother Heart disease Hypertension Other No family history of adverse response to anesthesia Social History Smoking Status: Never smoker Second Hand Exposure: No; Do You Dip or Chew Tobacco: No; Tobacco Cessation Education Requested by Patient: No Hx Alcohol Use: No Hx Substance Use: No Preferred Language: Syrian Communication Ability: Effective Electronics Specialist Required: No Beliefs That Will Affect Care: None marital status: Current Living Situation: Spouse current occupational status: retired current occupation: Former [employer] Other Information That Helps Us Care for You: No Feels Safe at Home: Yes Safety Concerns: Feels Safe At This Time Assistive Devices: BiPap and Oxygen - Continuous Assistive Devices Comment: Pt. currently on BiPAP and O2, not while at home Allergies Allergies Allergy/AdvReac Type Severity Reaction Status Date / Time Influenza Virus Vaccines Allergy Severe FLOWN TO Verified 09/05/23 20:43 [facility]. ciprofloxacin Allergy Intermediate RASH/BLEEDI Verified 09/05/23 20:43 NG methotrexate Allergy Intermediate RASH/PNEUMO Verified 09/05/23 20:43 NITIS Penicillins Allergy Intermediate hives Verified 09/05/23 20:43 ranitidine Allergy Intermediate rash Verified 09/05/23 20:43 Home Meds Home Medications Medication Instructions Recorded Confirmed duloxetine 30 mg capsule,delayed 60 mg PO QAM 07/20/18 09/05/23 release folic acid 1 mg tablet 1 mg PO QAM 07/20/18 09/05/23 prednisone 5 mg tablet 5 mg PO QAM 07/20/18 09/05/23 albuterol sulfate 90 mcg/actuation 2 puff inhalation Q4 PRN Shortness 03/07/19 09/05/23 aerosol inhaler (ProAir HFA) Of Breath cyanocobalamin (vitamin B-12) 2,000 mcg PO [id number] 03/07/19 09/05/23 1,000 mcg tablet (Vitamin B-12) vit A 300 mcg-C 200 mg-E 27 1 tab PO QAM 03/07/19 09/05/23 mg-lutein 2 mg and minerals tablet (Ocuvite with Lutein) [id number] 8 mg-folic 400 1 tab PO QAM 11/12/19 09/05/23 mcg-K 50 mcg-lutein 300 mcg tablet (Centrum Silver Women) montelukast 10 mg tablet 10 mg PO QAM 11/15/20 09/05/23 latanoprost 0.005 % eye drops 1 drp OPB HS 01/03/21 09/05/23 solifenacin 10 mg tablet (Vesicare) 10 mg PO QAM 08/22/21 09/05/23 acetaminophen 325 mg tablet 325 mg PO DIRECTED PRN Pain 03/21/22 09/05/23 fluticasone furoate 200 1 inh inhalation DAILY 03/21/22 09/05/23 mcg-vilanterol 25 mcg/dose inhalation powder (Breo Ellipta) thiamine HCl (vitamin B1) 100 mg 50 mg PO DAILY 03/21/22 09/05/23 tablet vancomycin 125 mg capsule 125 mg PO Q6H 03/21/22 09/05/23 Lactobacillus rhamnosus GG 5 5 cell PO BID 08/06/22 09/05/23 billion cell oral powder packet ([employer]) albuterol sulfate 2.5 mg/3 mL 2.5 mg inhalation DIRECTED PRN 08/06/22 09/05/23 (0.083 %) solution for nebulization Shortness Of Breath Or Wheezing cholecalciferol (vitamin D3) 50 50 mcg PO QAM 08/06/22 09/05/23 mcg (2,000 unit) capsule (Vitamin D3) ferrous sulfate 325 mg (65 mg 325 mg PO QAM 08/06/22 09/05/23 iron) tablet menthol 0.44 %-zinc oxide 20.6 % 1 applic topical BID PRN AFFECTED 08/06/22 09/05/23 topical ointment (Calmoseptine) AREA pantoprazole 40 mg tablet,delayed 40 mg PO QAM 08/06/22 09/05/23 release (Protonix) triamcinolone acetonide 0.1 % 1 applic topical BID PRN AFFECTED 08/06/22 09/05/23 topical cream AREA metoprolol succinate 25 mg 25 mg PO DAILY 05/08/23 09/05/23 tablet,extended release 24 hr rosuvastatin 10 mg tablet 20 mg PO HS 05/08/23 09/05/23 amlodipine 5 mg tablet 5 mg PO QAM 09/05/23 09/05/23 levalbuterol HCl 1.25 mg/3 mL 1.25 mg inhalation Q4H PRN 09/05/23 09/05/23 solution for nebulization WHEEZING/SOB/COUGH Previous Rx's Medication Instructions Recorded clopidogrel 75 mg tablet 75 mg PO QAM #30 tabs 04/01/22 hydroxychloroquine 200 mg tablet 200 mg PO HS 30 days #30 tabs 08/31/22 Results & Data (ED) Vital Signs Vital Signs - 24 hr 09/05/23 18:35 09/05/23 19:02 09/05/23 19:04 Temperature 36.4 C L Temperature Source Oral Pulse Rate 92 H 95 H 124 H Pulse Rate [Right Finger] Pulse Rate from SpO2 Sensor Respiratory Rate 20 33 H Respiratory Effort / Characteristics Respiratory Depth Respiratory Pattern Blood Pressure 100/67 Blood Pressure Mean 78 Pulse Oximetry 92 Oxygen Delivery Method Room Air Fraction of Inspired Oxygen Sepsis Recent Fever Within 48 Hours Yes Sepsis New/Unexplained Change in Mental Status Yes Sepsis Action Taken by Nursing No Action Required 09/05/23 19:10 09/05/23 19:20 09/05/23 19:22 Temperature Temperature Source Pulse Rate 133 H 119 H 105 H Pulse Rate [Right Finger] Pulse Rate from SpO2 Sensor 139 H 132 H Respiratory Rate 35 H 47 H 22 Respiratory Effort / Characteristics Respiratory Depth Respiratory Pattern Blood Pressure Blood Pressure Mean Pulse Oximetry 92 92 Oxygen Delivery Method Fraction of Inspired Oxygen Sepsis Recent Fever Within 48 Hours Sepsis New/Unexplained Change in Mental Status Sepsis Action Taken by Nursing 09/05/23 19:22 09/05/23 19:30 09/05/23 19:30 Temperature Temperature Source Pulse Rate 124 H Pulse Rate [Right Finger] Pulse Rate from SpO2 Sensor 115 H Respiratory Rate 40 H Respiratory Effort / Characteristics Respiratory Depth Respiratory Pattern Blood Pressure 124/89 123/67 Blood Pressure Mean 95 85 Pulse Oximetry 93 Oxygen Delivery Method Fraction of Inspired Oxygen Sepsis Recent Fever Within 48 Hours Sepsis New/Unexplained Change in Mental Status Sepsis Action Taken by Nursing 09/05/23 19:32 09/05/23 19:33 09/05/23 19:40 Temperature Temperature Source Pulse Rate 113 H 108 H Pulse Rate [Right Finger] 113 H Pulse Rate from SpO2 Sensor 123 H Respiratory Rate 30 H 29 H 30 H Respiratory Effort / Characteristics Non-Labored Spontaneous Spontaneous Respiratory Depth Shallow Respiratory Pattern Tachypnea Blood Pressure Blood Pressure Mean Pulse Oximetry 30 L 97 100 Oxygen Delivery Method BiPAP Fraction of Inspired Oxygen 30 Sepsis Recent Fever Within 48 Hours Sepsis New/Unexplained Change in Mental Status Sepsis Action Taken by Nursing 09/05/23 19:45 09/05/23 19:45 09/05/23 19:50 Temperature Temperature Source Pulse Rate 104 H 112 H Pulse Rate [Right Finger] Pulse Rate from SpO2 Sensor 111 H 116 H Respiratory Rate 18 31 H Respiratory Effort / Characteristics Respiratory Depth Respiratory Pattern Blood Pressure 116/67 Blood Pressure Mean 85 Pulse Oximetry 94 99 Oxygen Delivery Method Fraction of Inspired Oxygen Sepsis Recent Fever Within 48 Hours Sepsis New/Unexplained Change in Mental Status Sepsis Action Taken by Nursing 09/05/23 20:00 09/05/23 20:00 09/05/23 20:10 Temperature Temperature Source Pulse Rate 110 H 112 H Pulse Rate [Right Finger] Pulse Rate from SpO2 Sensor 119 H 126 H Respiratory Rate 28 H 22 Respiratory Effort / Characteristics Respiratory Depth Respiratory Pattern Blood Pressure 94/66 L Blood Pressure Mean 74 Pulse Oximetry 91 98 Oxygen Delivery Method Fraction of Inspired Oxygen Sepsis Recent Fever Within 48 Hours Sepsis New/Unexplained Change in Mental Status Sepsis Action Taken by Nursing 09/05/23 20:15 09/05/23 20:15 09/05/23 20:20 Temperature Temperature Source Pulse Rate 121 H 114 H Pulse Rate [Right Finger] Pulse Rate from SpO2 Sensor 102 H 113 H Respiratory Rate 22 21 Respiratory Effort / Characteristics Respiratory Depth Respiratory Pattern Blood Pressure 106/82 Blood Pressure Mean 97 Pulse Oximetry 98 98 Oxygen Delivery Method Fraction of Inspired Oxygen Sepsis Recent Fever Within 48 Hours Sepsis New/Unexplained Change in Mental Status Sepsis Action Taken by Nursing 09/05/23 20:30 09/05/23 20:30 09/05/23 20:45 Temperature Temperature Source Pulse Rate 111 H Pulse Rate [Right Finger] Pulse Rate from SpO2 Sensor 102 H Respiratory Rate 22 Respiratory Effort / Characteristics Respiratory Depth Respiratory Pattern Blood Pressure 121/74 123/70 Blood Pressure Mean 93 84 Pulse Oximetry 95 Oxygen Delivery Method Fraction of Inspired Oxygen Sepsis Recent Fever Within 48 Hours Sepsis New/Unexplained Change in Mental Status Sepsis Action Taken by Nursing 09/05/23 20:45 09/05/23 21:00 09/05/23 21:00 Temperature Temperature Source Pulse Rate 112 H 107 H Pulse Rate [Right Finger] Pulse Rate from SpO2 Sensor 111 H 110 H Respiratory Rate 24 24 Respiratory Effort / Characteristics Respiratory Depth Respiratory Pattern Blood Pressure 118/88 Blood Pressure Mean 106 Pulse Oximetry 91 95 Oxygen Delivery Method Fraction of Inspired Oxygen Sepsis Recent Fever Within 48 Hours Sepsis New/Unexplained Change in Mental Status Sepsis Action Taken by Nursing 09/05/23 21:15 09/05/23 21:15 09/05/23 21:30 Temperature Temperature Source Pulse Rate 112 H Pulse Rate [Right Finger] Pulse Rate from SpO2 Sensor 120 H Respiratory Rate 28 H Respiratory Effort / Characteristics Respiratory Depth Respiratory Pattern Blood Pressure 117/95 129/95 Blood Pressure Mean 104 118 Pulse Oximetry 94 Oxygen Delivery Method Fraction of Inspired Oxygen Sepsis Recent Fever Within 48 Hours Sepsis New/Unexplained Change in Mental Status Sepsis Action Taken by Nursing 09/05/23 21:30 09/05/23 21:45 09/05/23 21:45 Temperature Temperature Source Pulse Rate 110 H 112 H Pulse Rate [Right Finger] Pulse Rate from SpO2 Sensor 98 H 113 H Respiratory Rate 28 H 24 Respiratory Effort / Characteristics Respiratory Depth Respiratory Pattern Blood Pressure 127/85 Blood Pressure Mean 99 Pulse Oximetry 95 92 Oxygen Delivery Method Fraction of Inspired Oxygen Sepsis Recent Fever Within 48 Hours Sepsis New/Unexplained Change in Mental Status Sepsis Action Taken by Nursing 09/05/23 21:51 09/05/23 22:00 09/05/23 22:01 Temperature Temperature Source Pulse Rate 120 H Pulse Rate [Right Finger] 94 H Pulse Rate from SpO2 Sensor 126 H Respiratory Rate 22 Respiratory Effort / Characteristics Respiratory Depth Respiratory Pattern Blood Pressure 100/82 Blood Pressure Mean 86 Pulse Oximetry 90 Oxygen Delivery Method Fraction of Inspired Oxygen Sepsis Recent Fever Within 48 Hours Sepsis New/Unexplained Change in Mental Status Sepsis Action Taken by Nursing 09/05/23 22:01 09/05/23 22:15 09/05/23 22:15 Temperature Temperature Source Pulse Rate 112 H 113 H Pulse Rate [Right Finger] Pulse Rate from SpO2 Sensor 81 115 H Respiratory Rate 25 H 33 H Respiratory Effort / Characteristics Respiratory Depth Respiratory Pattern Blood Pressure 137/84 Blood Pressure Mean 107 Pulse Oximetry 95 94 Oxygen Delivery Method Fraction of Inspired Oxygen Sepsis Recent Fever Within 48 Hours Sepsis New/Unexplained Change in Mental Status Sepsis Action Taken by Retirement Medications Current Medication List: was personally reviewed by me Laboratory Data Attestation: I reviewed the patient's lab results. 09/07/23 04:13 09/07/23 04:13 Lab Results 09/05/23 09/05/23 09/05/23 Range/Units 19:00 19:05 19:18 WBC 7.94 (4.8-10.8) K/ul RBC 4.60 (4.20-5.40) M/uL Hgb 12.8 (12.0-16.0) g/dl POC Hgb 12.6 (12.0-16.0) g/dl Hct 36.8 L (37.0-47.0) % POC Hct 37 (37-47) % MCV 80.0 (80.0-100.0) fL MCH 27.8 (25.0-34.0) pg MCHC 34.8 (32.0-36.0) g/dL RDW Std Deviation 48.7 H (36.4-46.3) fL RDW Coeff of Xochitl 16.8 H (11.5-14.5) % Plt Count 245 (130-400) K/uL MPV 9.7 (9.4-12.4) fL Immature Gran % (Auto) 0.5 % Neut % (Auto) 61.9 % Lymph % (Auto) 23.0 % Freestone % (Auto) 14.5 % Eos % (Auto) 0.0 % Baso % (Auto) 0.1 % Neut # (Auto) 4.91 (1.40-6.50) K/uL Lymph # (Auto) 1.83 (1.20-3.40) K/uL Freestone # (Auto) 1.15 H (0.11-0.59) K/uL Eos # (Auto) 0.00 (0.00-0.50) K/uL Baso # (Auto) 0.01 (0.00-0.20) K/uL Immature Gran # (Auto) 0.04 (0.01-0.20) K/uL Toxic Granulation 1+ Polychromasia 1+ Acanthocytes (Spur) 1+ VBG pH 7.36 (7.36-7.41) VBG pCO2 37 L (38-50) mmHg VBG pO2 33 mmHg VBG HCO3 21 mmol/L VBG O2 Saturation < 60.0 % VBG Base Excess -4.0 mEq/L POC Sodium 127 L (135-144) mmol/L Sodium 129 L (136-145) mmol/L POC Potassium 4.2 (3.3-5.0) mmol/L Potassium 4.5 (3.5-5.1) mmol/L POC Chloride 92 L (101-112) mmol/L Chloride 88 L (98-107) mmol/L Carbon Dioxide 20 L (21-32) mmol/L POC Total CO2 21 L (24-31) mmol/L Anion Gap 21 H (3-11) POC Anion Gap 18.0 (16-25) mmol/L POC BUN 35 H (7-18) mg/dl BUN 42 H (6-23) mg/dl Creatinine 1.75 H (0.6-1.2) mg/dl POC Creatinine 1.8 H (0.6-1.3) mg/dl Est Cr Clr Drug Dosing 21.7 ml/min Est GFR ( Amer) 32.4 ml/min Est GFR (Non-Af Amer) 28.0 ml/min BUN/Creatinine Ratio 24.0 H (10-20) Glucose 280 H (70-99(Fasting)) mg/dl POC Glucose (other) 281 H (70-99) mg/dl Lactate 6.5 H* (0.4-2.0) mmol/L Calcium 10.1 (8.6-10.3) mg/dl POC Ioniz Calcium Jaime 1.18 (1.12-1.32) mmol/l Magnesium 2.0 (1.7-2.4) mg/dl Total Bilirubin 0.9 (0.2-1.0) mg/dl Direct Bilirubin 0.3 H (0-0.2) mg/dl AST 56 H (13-39) U/L ALT 32 (7-52) U/L Alkaline Phosphatase 116 H (34-104) U/L Troponin I High Sens 1190.9 H* (0-14) pg/ml Total Protein 6.8 (6.0-8.3) gm/dl Albumin 3.6 (3.4-5.0) gm/dl Procalcitonin 4.22 H (0-0.5) ng/ml Adenovirus (PCR) Not Detected (NotDetected) B. pertussis DNA (PCR) Not Detected (NotDetected) B.parapertussis DNA PCR Not Detected (NotDetected) C. pneumoniae DNA (PCR) Not Detected (NotDetected) Coronavirus OC43 (PCR) Not Detected (NotDetected) Coronavirus HKU1 (PCR) Not Detected (NotDetected) Coronavirus 229E (PCR) Not Detected (NotDetected) SARS-CoV-2 (PCR) Not Detected (NotDetected) Coronavirus NL63 (PCR) Not Detected (NotDetected) Human Metapneumovir PCR Not Detected (NotDetected) Influenza Type A (PCR) Not Detected (NotDetected) Influenza Type B (PCR) Not Detected (NotDetected) M. pneumoniae (PCR) Not Detected (NotDetected) Parainfluenza 1 (PCR) Not Detected (NotDetected) Parainfluenza 2 (PCR) Not Detected (NotDetected) Parainfluenza 3 (PCR) Not Detected (NotDetected) Parainfluenza 4 (PCR) Not Detected (NotDetected) RSV (PCR) Not Detected (NotDetected) Entero/Rhino (PCR) Not Detected (NotDetected) 09/05/23 Range/Units 21:12 WBC (4.8-10.8) K/ul RBC (4.20-5.40) M/uL Hgb (12.0-16.0) g/dl POC Hgb (12.0-16.0) g/dl Hct (37.0-47.0) % POC Hct (37-47) % MCV (80.0-100.0) fL MCH (25.0-34.0) pg MCHC (32.0-36.0) g/dL RDW Std Deviation (36.4-46.3) fL RDW Coeff of Xochitl (11.5-14.5) % Plt Count (130-400) K/uL MPV (9.4-12.4) fL Immature Gran % (Auto) % Neut % (Auto) % Lymph % (Auto) % Freestone % (Auto) % Eos % (Auto) % Baso % (Auto) % Neut # (Auto) (1.40-6.50) K/uL Lymph # (Auto) (1.20-3.40) K/uL Freestone # (Auto) (0.11-0.59) K/uL Eos # (Auto) (0.00-0.50) K/uL Baso # (Auto) (0.00-0.20) K/uL Immature Gran # (Auto) (0.01-0.20) K/uL Toxic Granulation Polychromasia Acanthocytes (Spur) VBG pH (7.36-7.41) VBG pCO2 (38-50) mmHg VBG pO2 mmHg VBG HCO3 mmol/L VBG O2 Saturation % VBG Base Excess mEq/L POC Sodium (135-144) mmol/L Sodium (136-145) mmol/L POC Potassium (3.3-5.0) mmol/L Potassium (3.5-5.1) mmol/L POC Chloride (101-112) mmol/L Chloride (98-107) mmol/L Carbon Dioxide (21-32) mmol/L POC Total CO2 (24-31) mmol/L Anion Gap (3-11) POC Anion Gap (16-25) mmol/L POC BUN (7-18) mg/dl BUN (6-23) mg/dl Creatinine (0.6-1.2) mg/dl POC Creatinine (0.6-1.3) mg/dl Est Cr Clr Drug Dosing ml/min Est GFR ( Amer) ml/min Est GFR (Non-Af Amer) ml/min BUN/Creatinine Ratio (10-20) Glucose (70-99(Fasting)) mg/dl POC Glucose (other) (70-99) mg/dl Lactate 2.5 H* (0.4-2.0) mmol/L Calcium (8.6-10.3) mg/dl POC Ioniz Calcium Jaime (1.12-1.32) mmol/l Magnesium (1.7-2.4) mg/dl Total Bilirubin (0.2-1.0) mg/dl Direct Bilirubin (0-0.2) mg/dl AST (13-39) U/L ALT (7-52) U/L Alkaline Phosphatase (34-104) U/L Troponin I High Sens 977.5 H* (0-14) pg/ml Total Protein (6.0-8.3) gm/dl Albumin (3.4-5.0) gm/dl Procalcitonin (0-0.5) ng/ml Adenovirus (PCR) (NotDetected) B. pertussis DNA (PCR) (NotDetected) B.parapertussis DNA PCR (NotDetected) C. pneumoniae DNA (PCR) (NotDetected) Coronavirus OC43 (PCR) (NotDetected) Coronavirus HKU1 (PCR) (NotDetected) Coronavirus 229E (PCR) (NotDetected) SARS-CoV-2 (PCR) (NotDetected) Coronavirus NL63 (PCR) (NotDetected) Human Metapneumovir PCR (NotDetected) Influenza Type A (PCR) (NotDetected) Influenza Type B (PCR) (NotDetected) M. pneumoniae (PCR) (NotDetected) Parainfluenza 1 (PCR) (NotDetected) Parainfluenza 2 (PCR) (NotDetected) Parainfluenza 3 (PCR) (NotDetected) Parainfluenza 4 (PCR) (NotDetected) RSV (PCR) (NotDetected) Entero/Rhino (PCR) (NotDetected) Administered Medications Moreno Syrup (Moreno Syrup 5 Ml Udp) 5 ml PO Q6 KARLA Stop: 09/16/23 01:44 Last Admin: 09/07/23 11:58 Dose: 5 ml Documented By: Admin: 09/07/23 05:07 Dose: 5 ml Documented By: Admin: 09/07/23 00:16 Dose: 5 ml Documented By: Admin: 09/06/23 17:23 Dose: 5 ml Documented By: Admin: 09/06/23 12:34 Dose: 5 ml Documented By: Admin: 09/06/23 05:57 Dose: 5 ml Documented By: Admin: 09/06/23 02:34 Dose: 5 ml Documented By: HOLDEN Clopidogrel Bisulfate (Clopidogrel Bisulfate 75 Mg Tab) [facility] [place] Stop: 10/06/23 08:59 Last Admin: 09/07/23 09:08 Dose: 75 mg Documented By: Admin: 09/06/23 09:02 Dose: 75 mg Documented By: YESSENIA Duloxetine HCl (Duloxetine Hcl 60 Mg Cap) [facility] [place] Stop: 10/06/23 08:59 Last Admin: 09/07/23 09:06 Dose: 60 mg Documented By: Admin: 09/06/23 09:02 Dose: 60 mg Documented By: YESSENIA Ferrous Sulfate (Ferrous Sulfate 325 Mg Tab) 325 [facility] [place] Stop: 10/06/23 08:59 Last Admin: 09/07/23 09:07 Dose: 325 mg Documented By: Admin: 09/06/23 09:03 Dose: 325 mg Documented By: YESSENIA Fluticasone/Vilanterol (Fluticasone/Vilanterol 200/25mcg 14 Puffs/Inhaler) 1 puffs INH DAILY [facility] Stop: 10/06/23 08:59 Last Admin: 09/07/23 09:09 Dose: 1 puffs Documented By: Admin: 09/06/23 09:05 Dose: 1 puffs Documented By: YESSENIA Folic Acid (Folic Acid 1 Mg Tab) 1 mg PO QAM [facility] Stop: 10/06/23 08:59 Last Admin: 09/07/23 09:10 Dose: 1 mg Documented By: Admin: 09/06/23 09:02 Dose: 1 mg Documented By: YESSENIA Heparin Sodium/Dextrose (Heparin Sodium/Dextrose) 25,000 units in 500 mls @ 12 mls/hr IV .Q24H [facility]; Protocol Stop: 10/05/23 20:29 Last Titration: 09/07/23 09:12 Dose: 600 units/hr, 12 mls/hr Documented By: CMP Co-signed By: GPF Titration: 09/07/23 07:07 Dose: 600 units/hr, 12 mls/hr Documented By: GPF Co-signed By: HOLDEN Admin: 09/07/23 05:59 Dose: 600 units/hr, 12 mls/hr Documented By: HOLDEN Co-signed By: CR Titration: 09/07/23 05:59 Dose: Infused Documented By: HOLDEN Co-signed By: CR Titration: 09/06/23 18:54 Dose: 600 units/hr, 12 mls/hr Documented By: HOLDEN Co-signed By: YESSENIA Titration: 09/06/23 07:06 Dose: 600 units/hr, 12 mls/hr Documented By: YESSENIA Co-signed By: HOLDEN Titration: 09/06/23 03:42 Dose: 600 units/hr, 12 mls/hr Documented By: DM Co-signed By: SAIMA Admin: 09/05/23 20:49 Dose: 600 units/hr, 12 mls/hr Documented By: ACC Co-signed By: DOMI Hydrocortisone Sodium (Succinate 50 mg/ Syringe) 1 mls @ 4 mls/min IV Q6H [facility] Stop: 10/06/23 03:59 Last Admin: 09/07/23 09:39 Dose: 4 mls/min Documented By: Admin: 09/07/23 03:00 Dose: 4 mls/min Documented By: Admin: 09/06/23 21:20 Dose: 4 mls/min Documented By: Admin: 09/06/23 15:23 Dose: 4 mls/min Documented By: Admin: 09/06/23 09:05 Dose: 4 mls/min Documented By: Admin: 09/06/23 03:36 Dose: 4 mls/min Documented By: HOLDEN Ertapenem 1,000 mg/ Syringe 10 mls @ 2 mls/min IV Q24H [facility] Stop: 09/08/23 08:59 Last Admin: 09/07/23 09:16 Dose: 2 mls/min Documented By: Admin: 09/06/23 09:32 Dose: 2 mls/min Documented By: YESSENIA Thiamine HCl 250 mg/ Sodium (Chloride) 52.5 mls @ 210 mls/hr IV Q8H [facility] Stop: 10/07/23 13:59 Last Admin: 09/07/23 14:39 Dose: 210 mls/hr Documented By: BRITNEY Insulin Aspart (Insulin Aspart Per Unit Charge) 0 units SC ACHS [facility]; Protocol Stop: 10/06/23 11:29 Last Admin: 09/07/23 12:18 Dose: 2 units Documented By: BRITNEY Co-signed By: MEHRDAD Admin: 09/07/23 09:11 Dose: Not Given Documented By: Admin: 09/06/23 20:39 Dose: 1 units Documented By: HOLDEN Co-signed By: LAM Admin: 09/06/23 17:26 Dose: 2 units Documented By: YESSENIA Co-signed By: DTT Admin: 09/06/23 12:30 Dose: Not Given Documented By: YESSENIA Insulin Glargine (Lantus Per Unit Charge) 15 units SC DAILY [facility]; Protocol Stop: 10/07/23 08:59 Last Admin: 09/07/23 09:14 Dose: 15 units Documented By: JOHNSON Co-signed By: MEHRDAD Ipratropium Elma (Ipratropium Elma Neb Soln 0.02% 2.5 Ml Vial) 0.5 mg INH QIDR [facility] Stop: 10/06/23 06:59 Last Admin: 09/07/23 11:52 Dose: 0.5 mg Documented By: Admin: 09/07/23 06:17 Dose: 0.5 mg Documented By: Admin: 09/06/23 17:56 Dose: 0.5 mg Documented By: Admin: 09/06/23 14:59 Dose: 0.5 mg Documented By: Admin: 09/06/23 11:39 Dose: 0.5 mg Documented By: Admin: 09/06/23 07:10 Dose: 0.5 mg Documented By: ROSALINDA Lactobacillus Acidophilus (Advanced Probiotic 1250 Mg Capsule) 2 cap PO BID [facility] Stop: 10/06/23 08:59 Last Admin: 09/07/23 09:09 Dose: 2 cap Documented By: Admin: 09/06/23 20:40 Dose: Not Given Documented By: Admin: 09/06/23 09:03 Dose: 2 cap Documented By: YESSENIA Latanoprost (Latanoprost 0.005% Op Soln 2.5 Ml Btl) 1 drops OPB HS [facility] Stop: 10/06/23 20:59 Last Admin: 09/06/23 20:42 Dose: 1 drops Documented By: HOLDEN Levalbuterol HCl (Levalbuterol 1.25 Mg/3 Ml Neb) 1.25 mg NEB QIDR [facility] Stop: 10/06/23 06:59 Last Admin: 09/07/23 11:52 Dose: 1.25 mg Documented By: Admin: 09/07/23 06:17 Dose: 1.25 mg Documented By: Admin: 09/06/23 17:56 Dose: 1.25 mg Documented By: Admin: 09/06/23 14:59 Dose: 1.25 mg Documented By: Admin: 09/06/23 11:38 Dose: 1.25 mg Documented By: Admin: 09/06/23 07:10 Dose: 1.25 mg Documented By: ROSALINDA Metoprolol Tartrate (Metoprolol Tartrate 25 Mg Tab) 25 mg PO TID [facility] Stop: 10/06/23 13:59 Last Admin: 09/07/23 14:38 Dose: 25 mg Documented By: Admin: 09/07/23 09:08 Dose: 25 mg Documented By: Admin: 09/06/23 20:40 Dose: Not Given Documented By: Admin: 09/06/23 14:04 Dose: 25 mg Documented By: YESSENIA Metoprolol Tartrate (Metoprolol Tartrate 1 Mg/Ml Vial) 2.5 mg IV TID PRN PRN Reason: not able to take po Stop: 10/06/23 19:42 Last Admin: 09/06/23 21:20 Dose: 2.5 mg Documented By: HOLDEN Montelukast Sodium (Montelukast Sodium 10 Mg Tablet) 10 mg PO [facility] Stop: 10/06/23 08:59 Last Admin: 09/07/23 09:06 Dose: 10 mg Documented By: Admin: 09/06/23 09:03 Dose: 10 mg Documented By: YESSENIA Multivitamins/Minerals (Cerovite Adv Formula Tab) 1 tab PO [facility] Stop: 10/06/23 08:59 Last Admin: 09/07/23 09:07 Dose: 1 tab Documented By: Admin: 09/06/23 09:05 Dose: 1 tab Documented By: YESSENIA Ondansetron HCl (Ondansetron Inj 2 Mg/Ml 2 Ml Vial) 4 mg IV Q6H PRN PRN Reason: Nausea Stop: 10/05/23 23:48 Last Admin: 09/06/23 15:18 Dose: 4 mg Documented By: YESSENIA Oxybutynin Chloride (Oxybutynin Chloride Xl 5 Mg Tabcr) 10 mg PO [facility] Stop: 10/06/23 08:59 Last Admin: 09/07/23 09:08 Dose: 10 mg Documented By: Admin: 09/06/23 09:04 Dose: 10 mg Documented By: YESSENIA Pantoprazole Sodium (Pantoprazole 40 Mg Tab) 40 mg PO [facility] Stop: 10/06/23 08:59 Last Admin: 09/07/23 09:07 Dose: 40 mg Documented By: Admin: 09/06/23 09:03 Dose: 40 mg Documented By: YESSENIA Rosuvastatin Calcium (Rosuvastatin Calcium 20 Mg Tab) 20 mg PO [facility] Stop: 10/06/23 20:59 Last Admin: 09/06/23 20:40 Dose: Not Given Documented By: HOLDEN Vancomycin HCl (Vancomycin Hcl 125 Mg/2.5ml Soln) 125 mg PO Q6 [facility] Stop: 09/16/23 01:44 Last Admin: 09/07/23 11:58 Dose: 125 mg Documented By: Admin: 09/07/23 05:07 Dose: 125 mg Documented By: Admin: 09/07/23 00:16 Dose: 125 mg Documented By: Admin: 09/06/23 17:26 Dose: 125 mg Documented By: Admin: 09/06/23 12:34 Dose: 125 mg Documented By: Admin: 09/06/23 05:58 Dose: 125 mg Documented By: Admin: 09/06/23 02:34 Dose: 125 mg Documented By: HOLDEN Vitamin D (Cholecalciferol 1,000 Units 25 Mcg Tab) 2,000 units PO QAM [facility] Stop: 10/06/23 08:59 Last Admin: 09/07/23 09:07 Dose: 2,000 units Documented By: Admin: 09/06/23 09:04 Dose: 2,000 units Documented By: YESSENIA Discontinued Medications Albuterol (Albut/Ipratrop 3mg/0.5mg Neb 3 Ml Vial) 6 ml NEB NOW STA; Protocol Stop: 09/05/23 19:03 Last Admin: 09/05/23 20:27 Dose: Not Given Documented By: ACC Furosemide (Furosemide 40 Mg/4 Ml Vial) 40 mg IV ONE ONE Stop: 09/06/23 15:34 Last Admin: 09/06/23 15:40 Dose: 40 mg Documented By: YESSENIA Heparin Sodium/Dextrose (Heparin Iv Adult Wt-Based Low-Dose *No* Initial Bolus Protocol) 1 each IV ONE STA; Protocol Stop: 09/05/23 20:16 Last Admin: 09/05/23 22:09 Dose: Not Given Documented By: ACC Hydrocortisone Sodium Succinate (Hydrocortisone Sod Succinate 100 Mg/2 Ml Vial) 50 mg IV NOW STA Stop: 09/05/23 19:17 Last Admin: 09/05/23 19:25 Dose: 50 mg Documented By: ACC Sodium Chloride (Nss) 1,000 mls @ 999 mls/hr IV .Q1H1M [facility] Stop: 09/05/23 20:15 Last Infusion: 09/05/23 20:52 Dose: Infused Documented By: Admin: 09/05/23 19:21 Dose: 999 mls/hr Documented By: ACC Cefepime HCl (Maxipime) 2,000 mg in 20 mls @ 5 mls/min IV NOW STA; Protocol Stop: 09/05/23 19:05 Last Admin: 09/05/23 19:25 Dose: 5 mls/min Documented By: ACC Sodium Chloride (Nss) 500 mls @ 999 mls/hr IV .Q31M ONE Stop: 09/05/23 20:45 Last Infusion: 09/05/23 21:32 Dose: Infused Documented By: Admin: 09/05/23 20:42 Dose: 999 mls/hr Documented By: ACC Sodium Chloride (Nss) 1,000 mls @ 125 mls/hr IV .Q8H [facility] Stop: 10/05/23 23:48 Last Infusion: 09/06/23 01:55 Dose: Infused Documented By: Admin: 09/05/23 23:51 Dose: 100 mls/hr Documented By: DM Vancomycin HCl 1,000 mg/ (Sodium Chloride) 270 mls @ 200 mls/hr IV NOW STA; Protocol Stop: 09/06/23 01:26 Last Infusion: 09/06/23 03:36 Dose: Infused Documented By: Admin: 09/06/23 01:32 Dose: 200 mls/hr Documented By: HOLDEN Acyclovir Sodium 550 mg/ (Dextrose) 111 mls @ 100 mls/hr IV Q12H [facility]; Protocol Stop: 09/16/23 00:00 Last Admin: 09/06/23 12:36 Dose: Not Given Documented By: Infusion: 09/06/23 01:30 Dose: Infused Documented By: Admin: 09/06/23 00:35 Dose: 100 mls/hr Documented By: HOLDEN Insulin Human Regular 4 units/ (Syringe) 4 mls @ 0 mls/min IV NOW STA Stop: 09/06/23 00:37 Last Admin: 09/06/23 00:40 Dose: Not Given Documented By: HOLDEN Cefepime HCl 1,000 mg/ Syringe 10 mls @ 5 mls/min IV Q12H [facility]; Protocol Stop: 09/16/23 05:59 Last Admin: 09/06/23 05:06 Dose: 5 mls/min Documented By: HOLDEN Insulin Human Regular 250 (units/ Sodium Chloride) 250 mls @ 3.4 mls/hr IV .Q24H [facility]; Protocol Stop: 09/06/23 11:30 Last Titration: 09/06/23 11:14 Dose: Infused Documented By: YESSENIA Co-signed By: DTT Titration: 09/06/23 10:39 Dose: 2.7 units/hr, 2.7 mls/hr Documented By: YESSENIA Co-signed By: DTT Titration: 09/06/23 09:26 Dose: 3.4 units/hr, 3.4 mls/hr Documented By: YESSENIA Co-signed By: DTT Titration: 09/06/23 07:06 Dose: 4.2 units/hr, 4.2 mls/hr Documented By: YESSENIA Co-signed By: DM Titration: 09/06/23 06:30 Dose: 4.2 units/hr, 4.2 mls/hr Documented By: HOLDEN Co-signed By: [id number] Titration: 09/06/23 05:34 Dose: 4.2 units/hr, 4.2 mls/hr Documented By: HOLDEN Co-signed By: [id number] Titration: 09/06/23 04:34 Dose: 5.3 units/hr, 5.3 mls/hr Documented By: HOLDEN Co-signed By: [id number] Titration: 09/06/23 03:34 Dose: 6.6 units/hr, 6.6 mls/hr Documented By: HOLDEN Co-signed By: SAIMA Admin: 09/06/23 02:36 Dose: 5.5 units/hr, 5.5 mls/hr Documented By: HOLDEN Co-signed By: [id number] Sodium Chloride (Nss) 500 mls @ 500 mls/hr IV .Q1H [facility] Stop: 09/06/23 02:44 Last Infusion: 09/06/23 03:36 Dose: Infused Documented By: Admin: 09/06/23 01:53 Dose: 500 mls/hr Documented By: HOLDEN Potassium Chloride/Sodium Chloride (1/2 Nss + 20meq Kcl 1000ml) 20 meq in 1,000 mls @ 125 mls/hr IV .Q8H [facility] Stop: 10/06/23 01:59 Last Infusion: 09/06/23 05:46 Dose: Infused Documented By: Admin: 09/06/23 02:36 Dose: 125 mls/hr Documented By: HOLDEN Potassium Chloride/Dextrose/Sod Cl (D5w And 1/2nss + 20meq Kcl) 20 meq in 1,000 mls @ 125 mls/hr IV .Q8H [facility] Stop: 10/06/23 05:44 Last Infusion: 12/24/23 10:37 Dose: Infused Documented By: Admin: 09/06/23 05:51 Dose: 125 mls/hr Documented By: HOLDEN Vancomycin HCl 750 mg/ Sodium (Chloride) 265 mls @ 200 mls/hr IV Q24H [facility] Stop: 09/16/23 09:59 Last Infusion: 09/07/23 10:35 Dose: Infused Documented By: Admin: 09/07/23 09:15 Dose: 200 mls/hr Documented By: Infusion: 09/06/23 10:42 Dose: Infused Documented By: Admin: 09/06/23 09:19 Dose: 200 mls/hr Documented By: YESSENIA Potassium Chloride (K Matt / Wtr) 10 meq in 100 mls @ 100 mls/hr IV Q1H [facility] Stop: 09/06/23 11:44 Last Infusion: 09/06/23 15:34 Dose: Infused Documented By: Admin: 09/06/23 12:30 Dose: 50 mls/hr Documented By: Infusion: 09/06/23 12:30 Dose: Infused Documented By: Infusion: 09/06/23 10:38 Dose: 50 mls/hr Documented By: Admin: 09/06/23 10:34 Dose: 100 mls/hr Documented By: Infusion: 09/06/23 10:24 Dose: Infused Documented By: Admin: 09/06/23 09:24 Dose: 100 mls/hr Documented By: Infusion: 09/06/23 09:24 Dose: Infused Documented By: Admin: 09/06/23 09:19 Dose: 100 mls/hr Documented By: YESSENIA Potassium Chloride/Sodium Chloride (Normal Saline W/20 Meq Kcl) 20 meq in 1,000 mls @ 40 mls/hr IV .Q24H [facility]; Protocol Stop: 10/06/23 10:29 Last Infusion: 09/06/23 15:03 Dose: Infused Documented By: Admin: 09/06/23 10:34 Dose: 80 mls/hr Documented By: YESSENIA Insulin Aspart (Insulin Aspart Per Unit Charge) 0 units SC Q6 [facility] Stop: 10/06/23 01:29 Last Admin: 09/06/23 01:41 Dose: 8 units Documented By: DM Co-signed By: TRACY Insulin Aspart (Insulin Aspart Per Unit Charge) 0 units SC ACHS [facility] Stop: 10/06/23 07:29 Last Admin: 09/06/23 08:41 Dose: Not Given Documented By: YESSENIA Insulin Glargine (Lantus Per Unit Charge) 25 units SQ ONE ONE Stop: 09/06/23 08:31 Last Admin: 09/06/23 09:19 Dose: 25 units Documented By: YESSENIA Co-signed By: BELEN Insulin Glargine (Lantus Per Unit Charge) 0 units SQ HS ONE; Protocol Stop: 09/06/23 21:01 Last Admin: 09/06/23 20:39 Dose: Not Given Documented By: HOLDEN Levalbuterol HCl (Levalbuterol 1.25 Mg/3 Ml Neb) 1.25 mg NEB NOW STA Stop: 09/05/23 19:14 Last Admin: 09/05/23 19:32 Dose: 1.25 mg Documented By: JUDITH Metoprolol Succinate (Metoprolol Succ 25mg Ext Rel Tab) 25 mg PO DAILY [facility] Stop: 10/06/23 08:59 Last Admin: 09/06/23 09:02 Dose: 25 mg Documented By: YESSENIA Miscellaneous (Pending D5 1/2ns+20meq Kcl Ivf) 1 each N/A Q2H [facility] Stop: 10/06/23 01:44 Last Admin: 09/06/23 05:52 Dose: Not Given Documented By: Admin: 09/06/23 05:52 Dose: Not Given Documented By: Admin: 09/06/23 05:51 Dose: 1 each Documented By: HOLDEN Non-Formulary Medication (Vancomycin) 125 mg PO Q6H [facility] Stop: 10/05/23 23:48 Last Admin: 09/06/23 00:10 Dose: Not Given Documented By: HOLDEN Thiamine HCl (Thiamine Hcl 50 Mg Tablet) 50 mg PO DAILY [facility] Stop: 10/06/23 08:59 Last Admin: 09/07/23 09:06 Dose: 50 mg Documented By: Admin: 09/06/23 09:05 Dose: 50 mg Documented By: YESSENIA Imaging Data Radiologist's Impression: Chest X-Ray 09/05/23 19:02 XR chest 1V portable HISTORY: Sepsis COMPARISON: Chest 05/08/2023. FINDINGS: There are low lung volumes. The heart is normal in size. No pleural effusions. No pneumothorax. No focal lung consolidations to suggest a pneumonia. No evidence for pulmonary edema. Prior cholecystectomy. Right shoulder prosthesis. IMPRESSION: No significant change compared to the prior study. No acute process. ACT 112: Negative or not required by law. Electronically signed by: Peter Olivarez M.D. 09/06/2023 8:36 AM Discharge Plan Visit Data Chief Complaint: Illness Stated Complaint: FEVER, INCOHERENT, WEAKNESS ED Provider: Americo Bejarano Discharge Problem: Sepsis, Acute metabolic encephalopathy, Atrial fibrillation with rapid ventricular response, Elevated lactic acid level Patient Disposition: Admitted As Inpatient Discharge Instructions Interventions: ED Discharge Assessment Last Done: 09/05/23 23:11 Discharge Problem: Sepsis Qualifiers: Sepsis type: sepsis due to unspecified organism Sepsis acute organ dysfunction status: with acute organ dysfunction Severe sepsis acute organ dysfunction type: encephalopathy Severe sepsis shock status: without septic shock Qualified Code(s): A41.9 - Sepsis, unspecified organism; R65.20 - Severe sepsis without septic shock; G93.41 - Metabolic encephalopathy
[2023-09-05] MEDS ORDERED: CEFEPIME 2,000 MG/20 ML VIAL IV STA (19:02)
[2023-09-05] MEDS ORDERED: ALBUT/IPRATROP 3MG/0.5MG NEB 3 ML VIAL NEB STA (19:02)
[2023-09-05 19:13] LABS: HCO3 VBG 21 mmol/L; Oxygen Saturation VBG < 60.0 %; PCO2 VBG 37 mmHg (38-50); PO2 VBG 33 mmHg; pH VBG 7.36 (7.36-7.41)
[2023-09-05] MEDS ORDERED: LEVALBUTEROL 1.25 MG/3 ML NEB NEB STA (19:13)
[2023-09-05] MEDS ORDERED: SODIUM CHLORIDE 0.9% 1,000 ML IV SCH ×2 (19:15→23:49)
[2023-09-05] MEDS ORDERED: HYDROCORTISONE SOD SUCCINATE 100 MG/2 ML VIAL IV STA (19:16)
[2023-09-05 19:18] LABS: iSTAT Creatinine 1.8 mg/dl (0.6-1.3); iSTAT Hemoglobin 12.6 g/dl (12.0-16.0); iSTAT Ionized Calcium 1.18 mmol/l (1.12-1.32); iSTAT Potassium 4.2 mmol/L (3.3-5.0)
[2023-09-05 19:27] LABS: Hematocrit (blood only) 36.8 % (37.0-47.0); Hemoglobin 12.8 g/dl (12.0-16.0); Mean Corpuscular Hemoglobin 27.8 pg (25.0-34.0); Mean Corpuscular Hgb Conc 34.8 g/dL (32.0-36.0); Mean Platelet Volume 9.7 fL (9.4-12.4); Platelet Count 245 K/uL (130-400); RDW Coefficient of Variation 16.8 % (11.5-14.5); RDW Standard Deviation 48.7 fL (36.4-46.3); White Blood Count 7.94 K/ul (4.8-10.8)
[2023-09-05 19:36] LABS: Albumin Level 3.6 gm/dl (3.4-5.0); Bilirubin Direct 0.3 mg/dl (0-0.2); Bilirubin,Total 0.9 mg/dl (0.2-1.0); Calcium 10.1 mg/dl (8.6-10.3); Creatinine Clr Calc Pharmacy 21.7 ml/min; Est GFR (African American) 32.4 ml/min; Potassium 4.5 mmol/L (3.5-5.1); Total Protein 6.8 gm/dl (6.0-8.3)
[2023-09-05 19:41] LABS: Acanthocytes 1+; Basophils # (auto) 0.01 K/uL (0.00-0.20); Basophils % (auto) 0.1 %; Immature Granulocytes # (auto) 0.04 K/uL (0.01-0.20); Immature Granulocytes % (auto) 0.5 %; Lymphocytes # (auto) 1.83 K/uL (1.20-3.40); Monocytes # (auto) 1.15 K/uL (0.11-0.59); Monocytes % (auto) 14.5 %; Neutrophils # (auto) 4.91 K/uL (1.40-6.50); Neutrophils % (auto) 61.9 %; Polychromasia 1+; Toxic Granulation 1+
[2023-09-05 19:46] LABS: Troponin I High Sensitivity 1190.9 pg/ml (0-14)
[2023-09-05 20:15] LABS: Appearance Urine Cloudy (Clear); Bacteria Urine Automated Negative (Negative); Blood Urine Negative (Negative); Color Urine Dark Yellow; Epithelial Cell Urine Auto >30 /lpf (0-5); Glucose Urine UA Negative (Negative); Ketones Urine Trace (Negative); Leukocyte Esterase Urine Negative (Negative); Nitrite Urine Negative (Negative); Protein Urine 1+ (Negative); RBC Urine Automated 0-4 /hpf (0-4); Specific Gravity Urine 1.021 (1.000-1.030); Urobilinogen Urine Negative (Negative)
[2023-09-05] MEDS ORDERED: Heparin IV Adult Wt-Based Low-Dose *NO* INITIAL Bolus Protocol IV STA (20:15)
[2023-09-05] MEDS ORDERED: SODIUM CHLORIDE 0.9% 500 ML IV ONE (20:15)
[2023-09-05 20:18] LABS: Adenovirus PCR Not Detected (NotDetected); Bordetella parapertussis PCR Not Detected (NotDetected); Bordetella pertussis PCR Not Detected (NotDetected); Chlamydia pneumoniae PCR Not Detected (NotDetected); Coronavirus 229E PCR Not Detected (NotDetected); Coronavirus CoV-2 (COVID19)PCR Not Detected (NotDetected); Coronavirus HKU1 PCR Not Detected (NotDetected); Coronavirus NL63 PCR Not Detected (NotDetected); Coronavirus OC43PCR Not Detected (NotDetected); Human Metapneumovirus PCR Not Detected (NotDetected); Influenza A PCR Not Detected (NotDetected); Influenza B PCR Not Detected (NotDetected); Mycoplasma pneumoniae PCR Not Detected (NotDetected); Parainfluenza Virus 1 PCR Not Detected (NotDetected); Parainfluenza Virus 2 PCR Not Detected (NotDetected); Parainfluenza Virus 3 PCR Not Detected (NotDetected); Parainfluenza Virus 4 PCR Not Detected (NotDetected); Respiratory Syncytial VirusPCR Not Detected (NotDetected); Rhinovirus/Enterovirus PCR Not Detected (NotDetected)
[2023-09-05 20:30] LABS: Bilirubin Urine 1+ (Negative)
[2023-09-05] MEDS: HEPARIN SODIUM/DEXTROSE 25,000 UNITS/500 ML BAG IV SCH (20:49)
[2023-09-05] MEDS ORDERED: TRIAMCINOLONE ACET 0.1% CR 15 GM TUBE TOP PRN (23:49)
[2023-09-05] MEDS ORDERED: LEVALBUTEROL 1.25 MG/3 ML NEB INH PRN (23:49)
[2023-09-05] MEDS ORDERED: VANCOMYCIN CONSULT ACTIVE PRN (23:49)
[2023-09-05] MEDS ORDERED: ONDANSETRON INJ 2 MG/ML 2 ML VIAL IV PRN (23:49)
[2023-09-05] MEDS ORDERED: NITROGLYCERIN SL 0.4 MG/TAB TAB SL PRN (23:49)
[2023-09-05] MEDS ORDERED: MENTHOL-ZINC OXIDE 360 APPLN/120 GM TUBE EXT PRN (23:49)
[2023-09-05] MEDS ORDERED: ALBUTEROL 0.083% NEBU SOLN 3 ML VIAL INH PRN (23:49)
[2023-09-05] MEDS ORDERED: ALBUTEROL HFA 8 GM INHALER INH PRN (23:49)
--- OUTSIDE RECORDS SUMMARY | 2023-09-05 23:49 | External Medical Summary | Summary of Care ---
Author Name Unknown Organization [facility] Address [address] [facility] [place] [address] Phone [phone] Care Team Providers Care Vehicle Maintenance Supervisor Name Role Phone Leni Moyer Primary Care Provider Reason for Visit * Reason Comments eRx-Medication Refill Encounter Details Date Type Department Care Team Description 03/01/2023 Refill Rheumatology [place] [address] [address] [place] [address] Marlyn Black MD [facility] [employer] [place] [address] Encounter for long-term (current) use of medications*; Senile osteoporosis Allergies Active Allergy Reactions Severity Noted Date Comments Influenza Virus Vac Live Quad High 2020 2 years ago, flown to [facility] Methotrexate 08/19/2013 pneumonitis Other Allergy (See Comments) Rash 012 Insecticides cause breathing problems Penicillins Hives 02/01/2001 Ranitidine Rash 07/14/2001 documented as of this encounter (statuses as of 03/10/2023) Medications Medication Sig Dispensed Refills Start Date End Date Status ONETOUCH ULTRASOFT LANCETS MISC Check BS twice daily. E 11.9 1 Box Dosing Unit 11 7 Active Nystatin (NYSTOP) 589449 UNIT/GM powderIndications:C utaneous candidiasis APPLY TOPICALLY TO AFFECTED AREA 3 TIMES A DAY. SPRINKLE OVER AFFECTED AREA. 15 g 2 7 Active triamcinolone acetonide (ARISTOCORT) 0.1 % creamIndications:Pr uritic condition Apply topically to affected area 2 times a day. To affected area. 60 g 5 7 Active Blood Glucose Monitoring Suppl (Online-OR ULTRA SYSTEM) w/Device KIT Twice daily. Dx E 11.9 1 Kit 0 8 Active Glucose Blood (Armorize TechnologiesTOUCH ULTRA BLUE) STRPIndications:Typ e 2 diabetes mellitus with hemoglobin A1c goal of less than 7.0% ([facility]) Check BS twice daily E11.9 100 Strip 11 8 Active betamethasone dipropionate (DIPROSONE) 0.05 % creamIndications:Ra sh and nonspecific skin eruption,Itching Apply topically to affected area 2 times a day. To affected area. 45 g 1 8 Active Respiratory Therapy Supplies (NEBULIZER/TUBING/M OUTHPIECE) [...] at bedtime. 30 Tablet 0 3 Active Metoprolol Succinate ER 25 MG Oral Tablet Extended Release 24 Hour (toPROL XL) Take 1 Tablet by mouth in the morning. 30 Tablet 5 3 Active DULoxetine HCl 30 MG Oral [...] 3 Active Folic Acid 1 MG Oral TabletIndications:R [...] MOUTH DAILY. 45 Tablet 1 3 Active Vancomycin HCl 125 MG Oral Capsule (Vancocin) Take 1 Capsule by mouth every 6 hours. 360 Capsule 0 3 Active Mirtazapine 15 MG Oral Tablet (Remeron) Take 1 Tablet by mouth at bedtime. 100 Tablet 3 3 Active Potassium Chloride Lisette ER 20 MEQ Oral Tablet Extended Release Take 2 Tablets by mouth in the morning. 100 Tablet 3 3 Active Rosuvastatin Calcium 20 MG Oral Tablet (Crestor) Take 1 Tablet by mouth in the morning. 90 Tablet 1 3 Active Zoster Vac Recomb Adjuvanted 50 MCG/0.5ML Intramuscular Suspension Reconstituted (Shingrix) Inject 0.5 mL into a large muscle now and repeat dose in 60 to 180 days Given at [facility] 1 Each 1 3 Active predniSONE 5 MG Oral Tablet (Deltasone) TAKE ONE TABLET BY MOUTH EVERY DAY 90 Tablet 1 3 Active predniSONE 5 MG Oral Tablet (Deltasone) TAKE 1 TABLET BY MOUTH EVERY DAY 90 Tablet 2 3 03/03/20 23 Discontinued documented as of this encounter (statuses as of 03/10/2023) Active Problems Problem Noted Date Pressure ulcer [...] Age-related osteoporosis without current pathological fracture 06/08/2020 [facility] current use of therapeutic elysia g 03/06/2020 Chronic right-sided heart failure 2019 Major depressive disorder, recurrent epi sode, in partial remission 11/03/2019 Last Assessment & Plan: Managed well with Cymbalta 60 mg daily Gastroesophageal reflux disease without esophagitis 11/03/2019 Last Assessment & Plan: Managed with pantoprazole 40 mg daily Coronary artery disease invo lving [place] coronary artery of [place] heart without angina pectoris 11/03/2019 Last Assessment [...] as of this encounter (statuses as of 03/10/2023) Resolved Problems Problem Noted Date Resolved Date [...] ICD-10 update of inactive term LOC PRIM [id number] 04/12/2003 04/15/20 17 PURE HYPERCHOLESTEROLEM 12/27/2001 08/03/20 [...] COPD, moderate 12/05/2014 CAD (coronary artery disease), [place] coronary a rtery 02/24/2022 Overview: duplicate documented as of this encounter (statuses as of 03/10/2023) Immunizations Name Administration Dates Next Due COVID-19 [...] VM asking pt to call scheduling # [phone] to let us know if she would like to schedule the DEXA, * Addendum Note - Marlyn Black MD - 03/06/2023 4:32 PM EDTAddended by: MARLYN BLACK on: 03/06/2023 04:32 PM Modules accepted: Orders * Telephone Encounter - Marlyn Black MD - 03/06/2023 4:32 PM EDT schedule dexa if patient wants to get it done * Addendum Note - Obi Collins [facility] - 03/03/2023 3:02 PM EDTAddended by: OBI COLLINS on: 03/03/2023 03:02 PM Modules accepted: Orders * Telephone Encounter - Obi Collins RP - 03/03/2023 2:59 PM EDTSigned Prescriptions: Disp Refills predniSONE 5 MG Oral Tablet (Deltasone) 90 Tab*1 Sig: TAKE ONE TABLET BY MOUTH EVERY DAYAuthorizing Provider: MARLYN BLACK User: OBI COLLINS------- * Telephone Encounter - Obi Collins [facility] - 03/03/2023 2:57 PM EDT Rheumatology: Refill Request(s) Per review of the refill parameters, Medication was refilled Obi Collins RPh [facility] Clinical Pharmacist Rheumatology Department 03/03/2023,2:57 PM * Telephone Encounter - Anna Marquez CPhT - 03/03/2023 9:57 AM EDTPending Prescriptions: Disp Refills predniSONE 5 MG Oral Tablet [Pharmacy Med *90 Tab*2 Sig: TAKE ONE TABLET BY MOUTH EVERY DAY * Telephone Encounter - Anna Marquez CPhT - 03/03/2023 9:55 AM EDT Did you pend patient's preferred pharmacy and medication before forwarding?yes Pharmacy: [facility]- [place] Pending Prescriptions: Disp Refills predniSONE [...] Office Visit Family Medicine Alissa Moran PA-C [address] [place] [address] [place] [address] 04/17/2023 Office Visit Gastroenterology Myah Holloway CRNP [address] [place] [address] 06/03/2023 Office Visit Infectious Disease [facility] [address] [facility] [address] 07/10/2023 Office Visit Family Medicine Leni Moyer, [address] [place] [address] 08/10/2023 Office Visit Rheumatology Marlyn Black MD [address] [facility] [place], [place] [address] Scheduled Orders Name Type Priority Associated Diagnoses Orde r Schedule DEXA SCAN/BONE MINERAL AXIAL Medical Imaging Routine Encounter for long-term (current) use of medications Senile osteoporosis Ordered: 03/06/2023 Health Maintenance Due Date Last Done Comments [...] Additional history exists CKD PHOS USE SMARTSET 84693 04/15/2023 08/0 10/2021, 03/12/2021, 07/19/2019, Additional history exists Influenza Vaccine (FLU shot) (Season Ended) 2023 06/14/2018, 06/22/2017, 08/12/2016, Additional history exists DIABETES-FOOT EXAM 06/10/2023 06/10/2022, 0 06/12/2021, 03/06/2020, Additional history exists HbA1c 06/30/2023 12/29/2022, 05/16, 11/22/2021, Additional history exists DIABETES-EYE EXAM 07/03/2023 07/03/2022, , 04/12/2020, Additional history exists GFR 07/15/2023 01/12/2023, 12/13, 10/15/2022, Additional history exists CKD HGB USE SMARTSET 43124 10/15/202310/15, 10/15/2022, 09/10/2022, Additional history exists O2 ASSESSMENT COMPLETED IN PAST YEAR FOR COPD 10/15/2023 10/15/2022 Pneumococcal Vaccine: 65+ Years Completed 03/05/2017, 06/28/2015, 11/25/2011, Additional history exists Fecal Occult Blood Test Discontinued 09/23/19, 08/06/2018, 02/21/2004 VITAMIN D LEVEL ONCE IN A LIFETIME-USE SMARTSET# [id number] Completed 10/18/2020, 03/06/2020, 03/26/2018, Additional history exists [...] this encounter Medical Devices Implanted Type Area Ceiling Installer Device Identifier Shelf Expiration Date Model / Serial / Lot Lens 19.5 Sn60wf - [id number] - [id number] Implanted:Qty: 1 on 11/21/2016 by Faraz Jeffers MD at OR [facility] Left: Eye RAMÓN : SURGICAL 05/14/2021 SN60WF.1 95 / [id number] / Lens 19.5 Sn60wf - [id number] - [id number] Implanted:Qty: 1 on 04/22/2019 by Faraz Jeffers MD at OR [facility] Right: Eye RAMÓN : SURGICAL 07/14/2023 [id number].[id number] / [id number] / documented as of this encounter Visit Diagnoses Diagnosis Encounter for [...] and were consensually agreed upon. Care Teams Vehicle Maintenance Supervisor Relationship Specialty Start Date End Date Leni Moyer, [address] [place] [address] PCP - General Internal Medicine 11/18/17 documented as of this encounter
--- OUTSIDE RECORDS SUMMARY | 2023-09-05 23:49 | External Medical Summary | Summary of Care ---
Author Name Unknown Organization [facility] Address [address] [facility] [place] [address] Phone [phone] Care Team Providers Care Curtain Fitter Name Role Phone Leni Moyer Primary Care Provider Reason for Visit * Reason Comments eRx-Medication Refill Encounter Details Date Type Department Care Team Description 03/08/2023 Refill Rheumatology [place] [address] [employer] [place] [address] Brandon Lewis MD [facility] [employer] [place] [address] Allergies Active Allergy Reactions Severity Noted Date Comments Influenza Virus Vac Live Quad High 2020 2 years ago, flown to [facility] Methotrexate 08/19/2013 pneumonitis Other Allergy (See Comments) Rash 012 Insecticides cause breathing problems Penicillins Hives 02/01/2001 Ranitidine Rash 07/14/2001 documented as of this encounter (statuses as of 03/10/2023) Medications Medication Sig Dispensed Refills Start Date End Date Status ONETOUCH ULTRASOFT LANCETS MISC Check BS twice daily. E 11.9 1 Box Dosing Unit 11 12/15/2016 Active Nystatin (NYSTOP) 720105 UNIT/GM powderIndications:Cu taneous candidiasis APPLY TOPICALLY TO AFFECTED AREA 3 TIMES A DAY. SPRINKLE OVER AFFECTED AREA. 15 g 2 12/15/2016 Active triamcinolone acetonide (ARISTOCORT) 0.1 % creamIndications:Pru ritic condition Apply topically to affected area 2 times a day. To affected area. 60 g 5 07/23/2017 Active Blood Glucose Monitoring Suppl ([employer] ULTRA SYSTEM) w/Device KIT Twice daily. Dx E 11.9 1 Kit 0 12/25/2017 Active Glucose Blood (AltraTechTOUCH ULTRA BLUE) STRPIndications:Type 2 diabetes mellitus with [...] at bedtime. 30 Tablet 0 10/01/2022 Active Metoprolol Succinate ER 25 MG Oral Tablet Extended Release 24 Hour (toPROL XL) Take 1 Tablet by mouth in the morning. 30 Tablet 5 10/01/2022 Active DULoxetine HCl 30 MG Oral [...] [place] 1 Each 1 12/29/2022 Active predniSONE 5 MG Oral Tablet (Deltasone) TAKE ONE TABLET BY MOUTH EVERY DAY 90 Tablet 1 03/03/2023 Active documented as of this encounter (statuses [...] Age-related osteoporosis without current pathological fracture 06/08/2020 watermaster current use of therapeutic elysia g 03/06/2020 Chronic right-sided heart failure 2019 Major depressive disorder, recurrent epi sode, in partial remission 11/03/2019 Last Assessment & Plan: Managed well with Cymbalta 60 mg daily Gastroesophageal reflux disease without esophagitis 11/03/2019 Last Assessment & Plan: Managed with pantoprazole 40 mg daily Coronary artery disease invo lving elim ira coronary artery of elim ira heart without angina pectoris 11/03/2019 Last Assessment [...] ICD-10 update of inactive term LOC PRIM [id number] 04/12/2003 04/15/20 17 PURE HYPERCHOLESTEROLEM 12/27/2001 08/03/20 [...] COPD, moderate 12/05/2014 CAD (coronary artery disease), elim ira coronary a rtery 02/24/2022 Overview: duplicate documented [...] encounter Miscellaneous Notes * Telephone Encounter - Anna Marquez CPhT - 03/10/2023 12:38 PM EDTRefused Prescriptions: Disp Refills predniSONE 5 MG Oral Tablet (Deltasone) 90 Tab*2 Sig: TAKE ONE TABLET BY MOUTH EVERY DAYRefused By: Stefany MARQUEZ for Refusal: Too soonReason for RefusalComment: sent 03.03.23 documented in this encounter Plan of Treatment Upcoming Encounters Date Type Specialty Care Team Description 03/31/2023 Office Visit Family Medicine Alissa Moran PAMarisolC [address] [place] [address] [place] [address] 04/17/2023 Office Visit Gastroenterology Myah Holloway CRNP [address] [place] [address] 06/03/2023 [facility] Visit [facility] Disease [facility] [address] [facility] [place] [id number] 07/10/2023 Office Visit Family Medicine Leni Moyer DO [address] [place] [address] [place] [address] 08/10/2023 Office Visit Rheumatology Brandon Lewis MD [address] [place] [address] Health Maintenance Due Date Last Done Comments [...] Additional history exists CKD PHOS USE SMARTSET 24211 04/15/2023 08/0 10/2021, 03/12/2021, 07/19/2019, Additional history exists Influenza Vaccine (FLU shot) (Season Ended) 2023 06/14/2018, 06/22/2017, 08/12/2016, Additional history exists DIABETES-FOOT EXAM 06/10/2023 06/10/2022, 0 06/12/2021, 03/06/2020, Additional history exists HbA1c 06/30/2023 12/29/2022, 05/16, 11/22/2021, Additional history exists DIABETES-EYE EXAM 07/03/2023 07/03/2022, , 04/12/2020, Additional history exists GFR 07/15/2023 01/12/2023, 12/13, 10/15/2022, Additional history exists CKD HGB USE SMARTSET 72710 10/15/202310/15, 10/15/2022, 09/10/2022, Additional history exists O2 ASSESSMENT COMPLETED IN PAST YEAR FOR COPD 10/15/2023 10/15/2022 Pneumococcal Vaccine: 65+ Years Completed 03/05/2017, 06/28/2015, 11/25/2011, Additional history exists Fecal Occult Blood Test Discontinued 09/23/19, 08/06/2018, 02/21/2004 VITAMIN D LEVEL ONCE IN A LIFETIME-USE SMARTSET# [id number] Completed 10/18/2020, 03/06/2020, 03/26/2018, Additional history exists [...] this encounter Medical Devices Implanted Type Area Cpr Ambulance Driver Device Identifier Shelf Expiration Date Model / Serial / Lot Lens 19.5 Sn60wf - [id number] - [id number] Implanted:Qty: 1 on 11/21/2016 by Faraz Jeffers MD at [facility] Left: Eye RAMÓN : SURGICAL 05/14/2021 SN60WF.1 95 / [id number] 2 / Lens 19.5 Sn60wf - [id number] - [id number] Implanted:Qty: 1 on 04/22/2019 by Faraz Jeffers MD at [facility] Right: Eye RAMÓN : SURGICAL 07/14/2023 SN60WF.195 / [id number] / documented as of this encounter [...] and were consensually agreed upon. Care Teams Curtain Fitter Relationship Specialty Start Date End Date Leni Moyer, [address] [place] [address] PCP - General Internal Medicine 11/18/17 documented as of this encounter
[2023-09-06] MEDS ORDERED: VANCOMYCIN HCL 1,000 MG in SODIUM CHLORIDE 0.9% 250 ML IV STA (00:06)
[2023-09-06] MEDS ORDERED: GLUCOSE 40% GEL 15 GM TUBE PO PRN (00:18)
[2023-09-06] MEDS ORDERED: DEXTROSE 50% 50 ML SYRINGE IV PRN (00:18)
[2023-09-06] MEDS ORDERED: GLUCAGON FOR INJ 1 MG VIAL SQ PRN (00:18)
[2023-09-06] MEDS ORDERED: GLUCOSE 10 TAB/TUBE PO PRN (00:18)
[2023-09-06] MEDS ORDERED: CARBOHYDRATES FOR HYPOGLYCEMIA PO PRN (00:18)
--- NOTE | 2023-09-06 00:21 | History & Physical Report ---
Date of Service September 05, 2023 Assessment & Plan (1) Sepsis: Plan: 75-year-old female with past med history significant for type 2 diabetes, CKD stage III, hyperlipidemia, chronic drug-induced interstitial lung disorders, asthma mild persistent, COPD, chronic right-sided heart failure, hypertension, history of CAD, history of CVA, mild aortic stenosis, paroxysmal atrial fibrillation, moderate protein calorie malnutrition, slow transit constipation, vitamin B-12 and thiamine deficiency, history of esophageal dysphagia, GERD, gout, osteoarthritis, primary open-angle glaucoma, polyneuropathy, rheumatoid arthritis involving multiple sites with positive rheumatoid factor, depression, history of C. difficile, history of COVID, history of fever of unknown origin, presents with fever and lethargy. states since she had a stroke and C. difficile infection she gets fever on and off and seems confused at that time but it gets resolves but this time she is having fever for last 2 days and been lethargic and was not getting better and when he checked her pulse ox heart rate was in 150s at one point of time today afternoon which prompted him to bring her to hospital. Patient is on p.o. vancomycin 125 mg every 6 hours for several months as per . States recent test of C. difficile was negative as per . As per [facility] C. Diff test was negative in July 14 2023. As per PCP notes from July 10 2023 patient continues to have fevers once a month with associated confusion and generalized weakness and persist for 7 to 10 days before resolving. And also per PCP notes when she stops vancomycin diarrhea gets worse and there is is a plan for working on prior authorization for VOWST oral capsules. Patient currently placed on BiPAP. Seems very weak. Could tell her name but in very low volume. Just answering with the nodding of the head. Patient denies headache. Denies chest pain. States has neck pain. No nausea. Denies abdominal pain. As per diarrhea is currently resolved. She ambulates without support. But since yesterday she is feeling very weak and could not ambulate. Not eating much since yesterday. She is afebrile in the ER. Tachycardic. Sepsis Lethargic Elevated lactic acid 2.5 VBG pH of 7.36 UA is okay Chest x-ray seems okay Elevated procalcitonin We will get CT head, CT chest and CT abdomen pelvis IV fluids IV antibiotics IV cefepime, Vanco and acyclovir No leukocytosis Patient has neck pain Rule out meningitis with IR guided lumbar puncture when able to as patient currently on IV heparin ct chest showing mild infiltrates on right lung.ON abx as above, can add flagyl for any question of aspiration. Close monitor Non-ST elevated OK Initial troponin 1190 and repeat is 977 Patient denies chest pain EKG no acute findings Will follow serial enzymes and echo On IV heparin Close monitor Cardiology consult Possible DKA Sugars in 300s and has anion gap Will place on IV fluids and an insulin drip as per DKA protocol Close monitor Glycemic pharmacy consult ANDRESSA on CKD stage III Presented creatinine 1.7 Baseline creatinine around 1.1-1.3 Avoid nephrotoxic agents Getting fluids and antibiotics Follow repeat labs History of asthma History of COPD History of drug-induced interstitial lung disorders Continue home inhalers Nebs Currently on BiPAP Chronic right-sided CHF Getting fluids Follow echo Monitor for volume overload History of CAD Beta-rhoda with holding parameters Continue statin and Plavix History of paroxysmal atrial fibrillation On beta-rhoda Not on anticoagulation Cardiology consulted History of CVA On statin and Plavix History of C. difficile Continue home p.o. vancomycin Will check stool for C. difficile History of esophageal dysphagia Speech consult Currently n.p.o. History of hypertension Will hold amlodipine for sepsis Metoprolol with holding parameters History of rheumatoid arthritis Will hold Plaquenil On prednisone 5 mg daily which will be held Will replace on stress dose steroids IV hydrocortisone 50 mg every 6 hours History of vitamin B1 and B12 deficiency Continue supplements History of depression Continue duloxetine DVT prophylaxis On IV heparin Disposition Telemetry floor CODE STATUS full code if there is chance of recovery per discussion with History of Present Illness Chief Complaint: Fevers and lethargy Primary Care Provider: Leni Moyer DO 75-year-old female with past med history significant for type 2 diabetes, CKD stage III, hyperlipidemia, chronic drug-induced interstitial lung disorders, asthma mild persistent, COPD, chronic right-sided heart failure, hypertension, history of CAD, history of CVA, mild aortic stenosis, paroxysmal atrial fibrillation, moderate protein calorie malnutrition, slow transit constipation, vitamin B-12 and thiamine deficiency, history of esophageal dysphagia, GERD, gout, osteoarthritis, primary open-angle glaucoma, polyneuropathy, rheumatoid arthritis involving multiple sites with positive rheumatoid factor, depression, history of C. difficile, history of COVID, history of fever of unknown origin, presents with fever and lethargy. states since she had a stroke and C. difficile infection she gets fever on and off and seems confused at that time but it gets resolves but this time she is having fever for last 2 days and been lethargic and was not getting better and when he checked her pulse ox heart rate was in 150s at one point of time today afternoon which prompted him to bring her to hospital. Patient is on p.o. vancomycin 125 mg every 6 hours for several months as per . States recent test of C. difficile was negative as per . As per epic C. Diff test was negative in July 14 2023. As per PCP notes from July 10 2023 patient continues to have fevers once a month with associated confusion and generalized weakness and persist for 7 to 10 days bef ore resolving. And also per PCP notes when she stops vancomycin diarrhea gets worse and there is is a plan for working on prior authorization for VOWST oral capsules. Patient currently placed on BiPAP. Seems very weak. Could tell her name but in very low volume. Just answering with the nodding of the head. Patient denies headache. Denies chest pain. States has neck pain. No nausea. Denies abdominal pain. As per diarrhea is currently resolved. She ambulates without support. But since yesterday she is feeling very weak and could not ambulate. Not eating much since yesterday. She is afebrile in the ER. Tachycardic. Past medical history. As mentioned above Past surgical history. Left total knee arthroplasty. Left bone marrow biopsy. Cardiac cath. Colonoscopy. EGD. Injection of lumbosacral spine. Laparoscopic cholecystectomy. Removal of oviducts. Bilateral cataracts. Right rotator cuff repair. Right total shoulder arthroplasty. Total abdominal hysterectomy with removal of tubes. Upper endoscopy. Social history. . No smoking. Alcohol occasional. No drug use. Family history. Father had arthritis. Stroke. Mother had breast cancer. Glaucoma. Pacemaker. Stroke. Rheumatoid arthritis. Son has arthritis. Heart disorder. Paternal grandfather had heart disorder. Hypertension. Maternal grandmother had hypertension. Allergies Allergy/AdvReac Type Severity Reaction Status Date / Time Influenza Virus Vaccines Allergy Severe FLOWN TO Verified 09/05/23 20:43 [facility]. ciprofloxacin Allergy Intermediate RASH/BLEEDI Verified 09/05/23 20:43 NG methotrexate Allergy Intermediate RASH/PNEUMO Verified 09/05/23 20:43 NITIS Penicillins Allergy Intermediate hives Verified 09/05/23 20:43 ranitidine Allergy Intermediate rash Verified 09/05/23 20:43 INSECTICIDES Allergy Severe CAUSE Uncoded 09/05/23 20:43 BREATHING ISSUES Home Medications Medication Instructions Recorded Confirmed Type duloxetine 30 mg capsule,delayed 60 mg PO QAM 07/20/18 09/05/23 History release folic acid 1 mg tablet 1 mg PO QAM 07/20/18 09/05/23 History prednisone 5 mg tablet 5 mg PO QAM 07/20/18 09/05/23 History albuterol sulfate 90 mcg/actuation 2 puff inhalation Q4 PRN Shortness 03/07/19 09/05/23 History aerosol inhaler (ProAir HFA) Of Breath cyanocobalamin (vitamin B-12) 2,000 mcg PO [id number] 03/07/19 09/05/23 History 1,000 mcg tablet (Vitamin B-12) vit A 300 mcg-C 200 mg-E 27 1 tab PO QAM 03/07/19 09/05/23 History mg-lutein 2 mg and minerals tablet (Ocuvite with Lutein) [id number] 8 mg-folic 400 1 tab PO QAM 11/12/19 09/05/23 History mcg-K 50 mcg-lutein 300 mcg tablet (Centrum Silver Women) montelukast 10 mg tablet 10 mg PO QAM 11/15/20 09/05/23 History latanoprost 0.005 % eye drops 1 drp OPB HS 01/03/21 09/05/23 History solifenacin 10 mg tablet (Vesicare) 10 mg PO QAM 08/22/21 09/05/23 History acetaminophen 325 mg tablet 325 mg PO DIRECTED PRN Pain 03/21/22 09/05/23 History fluticasone furoate 200 1 inh inhalation DAILY 03/21/22 09/05/23 History mcg-vilanterol 25 mcg/dose inhalation powder (Breo Ellipta) thiamine HCl (vitamin B1) 100 mg 50 mg PO DAILY 03/21/22 09/05/23 History tablet vancomycin 125 mg capsule 125 mg PO Q6H 03/21/22 09/05/23 History clopidogrel 75 mg tablet 75 mg PO QAM #30 tabs 04/01/22 09/05/23 Rx Lactobacillus rhamnosus GG 5 5 cell PO BID 08/06/22 09/05/23 History billion cell oral powder packet ([employer]) albuterol sulfate 2.5 mg/3 mL 2.5 mg inhalation DIRECTED PRN 08/06/22 09/05/23 History (0.083 %) solution for nebulization Shortness Of Breath Or Wheezing cholecalciferol (vitamin D3) 50 50 mcg PO QAM 08/06/22 09/05/23 History mcg (2,000 unit) capsule (Vitamin D3) ferrous sulfate 325 mg (65 mg 325 mg PO QAM 08/06/22 09/05/23 History iron) tablet menthol 0.44 %-zinc oxide 20.6 % 1 applic topical BID PRN AFFECTED 08/06/22 09/05/23 History topical ointment (Calmoseptine) AREA pantoprazole 40 mg tablet,delayed 40 mg PO QAM 08/06/22 09/05/23 History release (Protonix) triamcinolone acetonide 0.1 % 1 applic topical BID PRN AFFECTED 08/06/22 09/05/23 History topical cream AREA hydroxychloroquine 200 mg tablet 200 mg PO HS 30 days #30 tabs 08/31/22 09/05/23 Rx metoprolol succinate 25 mg 25 mg PO DAILY 05/08/23 09/05/23 History tablet,extended release 24 hr rosuvastatin 10 mg tablet 20 mg PO HS 05/08/23 09/05/23 History amlodipine 5 mg tablet 5 mg PO QAM 09/05/23 09/05/23 History levalbuterol HCl 1.25 mg/3 mL 1.25 mg inhalation Q4H PRN 09/05/23 09/05/23 History solution for nebulization WHEEZING/SOB/COUGH Past Med/Surg History Medical History Wrist fracture, left History of stroke Thrush, oral Hyponatremia Nontraumatic rectus hematoma NSTEMI (non-ST elevated myocardial infarction) UTI (urinary tract infection) Immunosuppressed status DVT prophylaxis CKD (chronic kidney disease), stage III Acute hyponatremia Abnormal ECG Elevated troponin Syncope NSTEMI (non-ST elevated myocardial infarction) Visual hallucinations Hyponatremia RSV infection Recurrent Clostridium difficile diarrhea Chronic steroid use prednisone daily Gout H/O interstitial lung disease "drug induced- methotrexate " Osteoarthritis Glaucoma Peripheral neuropathy Dyslipidemia Rheumatoid arthritis "on chronic steroids" COPD (chronic obstructive pulmonary disease) inhalers prn Depression CKD (chronic kidney disease), stage III Gastroparesis DM type 2 (diabetes mellitus, type 2) GERD (gastroesophageal reflux disease) Migraines DJD of right shoulder NSTEMI (non-ST elevated myocardial infarction) (08/06/13) Asthma inhalers prn HTN (hypertension) Heart disease Surgical History History of tooth extraction all top teeth History of esophagogastroduodenoscopy (EGD) H/O cardiac catheterization "cath 07/2013- single vessel CAD involving apical segment LAD, medical management indicated" S/P total knee arthroplasty "left knee" History of hysterectomy H/O colonoscopy S/P rotator cuff repair "right shoulder" S/P removal of ovarian cyst Family History Father Family history of diabetes mellitus Mother Heart disease Hypertension Other No family history of adverse response to anesthesia Social History Smoking Status: Never smoker Second Hand Exposure: No; Do You Dip or Chew Tobacco: No; Tobacco Cessation Education Requested by Patient: No Hx Alcohol Use: No Hx Substance Use: No Preferred Language: Tajik Communication Ability: Effective Tube Heater Required: No Beliefs That Will Affect Care: None marital status: Current Living Situation: Spouse current occupational status: retired current occupation: Former [employer] Other Information That Helps Us Care for You: No Feels Safe at Home: Yes Safety Concerns: Feels Safe At This Time Assistive Devices: BiPap and Oxygen - Continuous Assistive Devices Comment: Pt. currently on BiPAP and O2, not while at home Review of Systems Review of Systems: Unobtainable due to reduced consciousness Physical Exam Physical Exam: General- Lethargic Head- atraumatic Eyes- PERRL. Neck- no JVD, Lungs- clear to auscultation no wheezing or crackles. Heart- regular rhythm;tachycardia no murmur, no gallop. Abdomen- normal bowel sounds, soft, nontender, no distension. Extremities- no pretibial edema, no erythema. Neuro- Drowsy,; PERRL, no facial palsy; speaking in very low volume, Skin- warm & dry Results & Data Results & Data Vital Signs (Past 12 Hours) Vital Signs Temp Pulse Pulse Resp BP Pulse Ox O2 Del Method 09/05/23 23:15 100 H 09/05/23 23:00 118 H 27 H 09/05/23 23:00 128/87 09/05/23 22:45 122/85 09/05/23 22:45 126 H 26 H 09/05/23 22:45 117 H 09/05/23 22:30 126/93 09/05/23 22:30 125 H 24 09/05/23 22:15 137/84 09/05/23 22:15 113 H 33 H 94 09/05/23 22:01 112 H 25 H 95 09/05/23 22:01 100/82 09/05/23 22:00 120 H 22 90 09/05/23 21:51 94 H 09/05/23 21:45 112 H 24 92 09/05/23 21:45 127/85 09/05/23 21:30 110 H 28 H 95 09/05/23 21:30 129/95 09/05/23 21:15 112 H 28 H 94 09/05/23 21:15 117/95 09/05/23 21:00 107 H 24 95 09/05/23 21:00 118/88 09/05/23 20:45 112 H 24 91 09/05/23 20:45 123/70 09/05/23 20:30 121/74 09/05/23 20:30 111 H 22 95 09/05/23 20:20 114 H 21 98 09/05/23 20:15 106/82 09/05/23 20:15 121 H 22 98 09/05/23 20:10 112 H 22 98 09/05/23 20:00 94/66 L 09/05/23 20:00 110 H 28 H 91 09/05/23 19:50 112 H 31 H 99 09/05/23 19:45 104 H 18 94 09/05/23 19:45 116/67 09/05/23 19:40 108 H 30 H 100 09/05/23 19:33 113 H 29 H 97 09/05/23 19:32 113 H 30 H 30 L BiPAP 09/05/23 19:30 123/67 09/05/23 19:30 124 H 40 H 93 09/05/23 19:22 124/89 09/05/23 19:22 105 H 22 92 09/05/23 19:20 119 H 47 H 92 09/05/23 19:10 133 H 35 H 09/05/23 19:04 124 H 33 H 09/05/23 19:02 95 H 09/05/23 18:35 36.4 C L 92 H 20 100/67 92 Room Air FiO2 09/05/23 23:15 09/05/23 23:00 09/05/23 23:00 09/05/23 22:45 09/05/23 22:45 09/05/23 22:45 09/05/23 22:30 09/05/23 22:30 09/05/23 22:15 09/05/23 22:15 09/05/23 22:01 09/05/23 22:01 09/05/23 22:00 09/05/23 21:51 09/05/23 21:45 09/05/23 21:45 09/05/23 21:30 09/05/23 21:30 09/05/23 21:15 09/05/23 21:15 09/05/23 21:00 09/05/23 21:00 09/05/23 20:45 09/05/23 20:45 09/05/23 20:30 09/05/23 20:30 09/05/23 20:20 09/05/23 20:15 09/05/23 20:15 09/05/23 20:10 09/05/23 20:00 09/05/23 20:00 09/05/23 19:50 09/05/23 19:45 09/05/23 19:45 09/05/23 19:40 09/05/23 19:33 30 09/05/23 19:32 09/05/23 19:30 09/05/23 19:30 09/05/23 19:22 09/05/23 19:22 09/05/23 19:20 09/05/23 19:10 09/05/23 19:04 09/05/23 19:02 09/05/23 18:35 Diagnostic Findings Laboratory Results WBC 7.94 K/ul (4.8-10.8) 09/05/23 19:00 RBC 4.60 M/uL (4.20-5.40) 09/05/23 19:00 Hgb 12.8 g/dl (12.0-16.0) 09/05/23 19:00 POC Hgb 12.6 g/dl (12.0-16.0) 09/05/23 19:05 Hct 36.8 % (37.0-47.0) L 09/05/23 19:00 POC Hct 37 % (37-47) 09/05/23 19:05 MCV 80.0 fL (80.0-100.0) 09/05/23 19:00 MCH 27.8 pg (25.0-34.0) 09/05/23 19:00 MCHC 34.8 g/dL (32.0-36.0) 09/05/23 19:00 RDW Std Deviation 48.7 fL (36.4-46.3) H 09/05/23 19:00 RDW Coeff of Xochitl 16.8 % (11.5-14.5) H 09/05/23 19:00 Plt Count 245 K/uL (130-400) 09/05/23 19:00 MPV 9.7 fL (9.4-12.4) 09/05/23 19:00 Immature Gran % (Auto) 0.5 % 09/05/23 19:00 Neut % (Auto) 61.9 % 09/05/23 19:00 Lymph % (Auto) 23.0 % 09/05/23 19:00 [place] % (Auto) 14.5 % 09/05/23 19:00 Eos % (Auto) 0.0 % 09/05/23 19:00 Baso % (Auto) 0.1 % 09/05/23 19:00 Neut # (Auto) 4.91 K/uL (1.40-6.50) 09/05/23 19:00 Lymph # (Auto) 1.83 K/uL (1.20-3.40) 09/05/23 19:00 [place] # (Auto) 1.15 K/uL (0.11-0.59) H 09/05/23 19:00 Eos # (Auto) 0.00 K/uL (0.00-0.50) 09/05/23 19:00 Baso # (Auto) 0.01 K/uL (0.00-0.20) 09/05/23 19:00 Immature Gran # (Auto) 0.04 K/uL (0.01-0.20) 09/05/23 19:00 Toxic Granulation 1+ 09/05/23 19:00 Polychromasia 1+ 09/05/23 19:00 Acanthocytes (Spur) 1+ 09/05/23 19:00 VBG pH 7.36 (7.36-7.41) 09/05/23 19:00 VBG pCO2 37 mmHg (38-50) L 09/05/23 19:00 VBG pO2 33 mmHg 09/05/23 19:00 VBG HCO3 21 mmol/L 09/05/23 19:00 VBG O2 Saturation < 60.0 % 09/05/23 19:00 VBG Base Excess -4.0 mEq/L 09/05/23 19:00 POC Sodium 127 mmol/L (135-144) L 09/05/23 19:05 Sodium 129 mmol/L (136-145) L 09/05/23 19:00 POC Potassium 4.2 mmol/L (3.3-5.0) 09/05/23 19:05 Potassium 4.5 mmol/L (3.5-5.1) 09/05/23 19:00 POC Chloride 92 mmol/L (101-112) L 09/05/23 19:05 Chloride 88 mmol/L (98-107) L 09/05/23 19:00 Carbon Dioxide 20 mmol/L (21-32) L 09/05/23 19:00 POC Total CO2 21 mmol/L (24-31) L 09/05/23 19:05 Anion Gap 21 (3-11) H 09/05/23 19:00 POC Anion Gap 18.0 mmol/L (16-25) 09/05/23 19:05 POC BUN 35 mg/dl (7-18) H 09/05/23 19:05 BUN 42 mg/dl (6-23) H 09/05/23 19:00 Creatinine 1.75 mg/dl (0.6-1.2) H 09/05/23 19:00 POC Creatinine 1.8 mg/dl (0.6-1.3) H 09/05/23 19:05 Est Cr Clr Drug Dosing 21.7 ml/min 09/05/23 19:00 Est GFR ( Amer) 32.4 ml/min 09/05/23 19:00 Est GFR (Non-Af Amer) 28.0 ml/min 09/05/23 19:00 BUN/Creatinine Ratio 24.0 (10-20) H 09/05/23 19:00 Glucose 280 mg/dl (70-99(Fasting)) H 09/05/23 19:00 POC Glucose 324 mg/dl (70-99) H* 09/06/23 00:26 POC Glucose (other) 281 mg/dl (70-99) H 09/05/23 19:05 Lactate 2.5 mmol/L (0.4-2.0) H* 09/05/23 21:12 Calcium 10.1 mg/dl (8.6-10.3) 09/05/23 19:00 POC Ioniz Calcium Jaime 1.18 mmol/l (1.12-1.32) 09/05/23 19:05 Magnesium 2.0 mg/dl (1.7-2.4) 09/05/23 19:00 Total Bilirubin 0.9 mg/dl (0.2-1.0) 09/05/23 19:00 Direct Bilirubin 0.3 mg/dl (0-0.2) H 09/05/23 19:00 AST 56 U/L (13-39) H 09/05/23 19:00 ALT 32 U/L (7-52) 09/05/23 19:00 Alkaline Phosphatase 116 U/L (34-104) H 09/05/23 19:00 Troponin I High Sens 977.5 pg/ml (0-14) H* 09/05/23 21:12 Total Protein 6.8 gm/dl (6.0-8.3) 09/05/23 19:00 Albumin 3.6 gm/dl (3.4-5.0) 09/05/23 19:00 Procalcitonin 4.22 ng/ml (0-0.5) H 09/05/23 19:00 Urine Color Dark Yellow 09/05/23 Unknown Urine Appearance Cloudy (Clear) A 09/05/23 Unknown Urine pH 5.0 (4.5-7.5) 09/05/23 Unknown Ur Specific [place] 1.021 (1.000-1.030) 09/05/23 Unknown Urine Protein 1+ (Negative) H 09/05/23 Unknown Urine Glucose (UA) Negative (Negative) 09/05/23 Unknown Urine Ketones Trace (Negative) H 09/05/23 Unknown Urine Blood Negative (Negative) 09/05/23 Unknown Urine Nitrite Negative (Negative) 09/05/23 Unknown Urine Bilirubin 1+ (Negative) H 09/05/23 Unknown Urine Urobilinogen Negative (Negative) 09/05/23 Unknown Ur Leukocyte Esterase Negative (Negative) 09/05/23 Unknown Urine WBC (Auto) 1-5 /hpf (0-5) 09/05/23 Unknown Urine RBC (Auto) 0-4 /hpf (0-4) 09/05/23 Unknown U Hyaline Cast (Auto) 10-30 /lpf (0-5) H 09/05/23 Unknown U Epithel Cells (Auto) >30 /lpf (0-5) H 09/05/23 Unknown Urine Bacteria (Auto) Negative (Negative) 09/05/23 Unknown Ur Renal Epithelial Cell Not Reportable 09/05/23 Unknown Granular Casts 1-5 /lpf (0) H 09/05/23 Unknown Urine Yeast Not Reportable 09/05/23 Unknown Adenovirus (PCR) Not Detected (NotDetected) 09/05/23 19:18 B. pertussis DNA (PCR) Not Detected (NotDetected) 09/05/23 19:18 B.parapertussis DNA PCR Not Detected (NotDetected) 09/05/23 19:18 C. pneumoniae DNA (PCR) Not Detected (NotDetected) 09/05/23 19:18 Coronavirus OC43 (PCR) Not Detected (NotDetected) 09/05/23 19:18 Coronavirus HKU1 (PCR) Not Detected (NotDetected) 09/05/23 19:18 Coronavirus 229E (PCR) Not Detected (NotDetected) 09/05/23 19:18 SARS-CoV-2 (PCR) Not Detected (NotDetected) 09/05/23 19:18 Coronavirus NL63 (PCR) Not Detected (NotDetected) 09/05/23 19:18 Human Metapneumovir PCR Not Detected (NotDetected) 09/05/23 19:18 Influenza Type A (PCR) Not Detected (NotDetected) 09/05/23 19:18 Influenza Type B (PCR) Not Detected (NotDetected) 09/05/23 19:18 M. pneumoniae (PCR) Not Detected (NotDetected) 09/05/23 19:18 Parainfluenza 1 (PCR) Not Detected (NotDetected) 09/05/23 19:18 Parainfluenza 2 (PCR) Not Detected (NotDetected) 09/05/23 19:18 Parainfluenza 3 (PCR) Not Detected (NotDetected) 09/05/23 19:18 Parainfluenza 4 (PCR) Not Detected (NotDetected) 09/05/23 19:18 RSV (PCR) Not Detected (NotDetected) 09/05/23 19:18 Entero/Rhino (PCR) Not Detected (NotDetected) 09/05/23 19:18 ECG Additional Comments: ECG. Sinus tachycardia with premature ventricular complexes or fusion complexes rate of 111. Right bundle branch block. T wave abnormality lateral leads. Code Status & VTE Plan VTE Prophylaxis Plan VTE Prophylaxis will be ordered: Yes
[2023-09-06] MEDS: ACYCLOVIR SOD 550 MG in DEXTROSE 5% 100 ML IV SCH ×2 (00:35→12:36)
[2023-09-06] MEDS ORDERED: INSULIN HUMAN REGULAR PER UNIT 4 UNITS in SYRINGE 3.96 ML IV STA (00:36)
[2023-09-06] MEDS ORDERED: INSULIN ASPART PER UNIT CHARGE SC SCH ×2 (01:30→07:30)
[2023-09-06] MEDS ORDERED: PHARMACY GLYCEMIC MGMT CONSULT PRN (01:40)
[2023-09-06] MEDS ORDERED: STAT IV Infusion **Titration per Protocol STA (01:40)
[2023-09-06] MEDS ORDERED: DKA GOAL RANGE 150-250 mg/dl ONE (01:40)
[2023-09-06] MEDS ORDERED: SODIUM CHLORIDE 0.9% 500 ML IV SCH (01:45)
[2023-09-06] MEDS ORDERED: PENDING 1/2NSS+20mEq KCL IVF SCH (01:45)
[2023-09-06] MEDS ORDERED: INSULIN REGULAR 250 UNITS in SODIUM CHLORIDE 0.9% 247.5 ML IV SCH (01:45)
[2023-09-06] MEDS ORDERED: SODIUM CHLOR 0.45% + 20MEQ KCL 20 MEQ/1,000 ML BAG IV SCH (02:00)
[2023-09-06] MEDS: VANCOMYCIN HCL 125 MG/2.5ML SOLN PO SCH ×4 (02:34→17:26)
[2023-09-06] MEDS: CHERRY SYRUP 5 ML UDP PO SCH ×4 (02:34→17:23)
[2023-09-06] MEDS: HYDROCORTISONE SOD 50 MG in SYRINGE 0 ML IV SCH ×4 (03:36→21:20)
[2023-09-06 03:37] LABS: BUN Creatinine Ratio 29.2 (10-20); Calcium 8.7 mg/dl (8.6-10.3); Creatinine Clr Calc Pharmacy 26.7 ml/min; Est GFR (African American) 41.1 ml/min; Est GFR (Non-African American) 35.4 ml/min; Magnesium 1.8 mg/dl (1.7-2.4); Phosphorus 3.7 mg/dl (2.5-4.9); Potassium 3.5 mmol/L (3.5-5.1)
[2023-09-06 03:39] LABS: ANTI-Xa, UFH(UnfractionatedHep 0.31 IU/ml (0.3-0.7)
--- NOTE | 2023-09-06 03:52 | CT Scan Report ---
Exam(s): CT HEAD Without Contrast EXAM: CT Head Without Intravenous Contrast CLINICAL HISTORY: Reason for exam: AMS. TECHNIQUE: Axial computed tomography images of the head/brain without intravenous contrast. Automated exposure control was utilized for the study. A dose lowering technique was utilized adhering to the principles of ALARA. COMPARISON: No relevant prior studies available. FINDINGS: No acute intracranial hemorrhage. No midline shift or mass effect. The territorial childs-white matter differentiation is maintained throughout. Age-related cerebral volume loss. Periventricular and subcortical white matter hypoattenuation, consistent with chronic microangiopathy. The visualized orbits appear grossly unremarkable. The calvarium is intact. The visualized paranasal sinuses and mastoid air cells are grossly clear. IMPRESSION: No acute intracranial hemorrhage, midline shift, or mass effect. Electronically signed by: Jaron Good MD 09/06/23 03:51 AM
[2023-09-06] MEDS ORDERED: HYDROCORTISONE SOD SUCCINATE 100 MG/2 ML VIAL IV SCH (04:00)
[2023-09-06] MEDS ORDERED: D5W AND 1/2NSS + 20MEQ KCL 20 MEQ/1,000 ML BAG IV SCH (05:45)
[2023-09-06] MEDS: PENDING D5 1/2NS+20mEq KCL IVF SCH ×2 (05:51→05:52)
[2023-09-06] MEDS ORDERED: CEFEPIME 1,000 MG in SYRINGE 0 ML IV SCH (06:00)
--- NOTE | 2023-09-06 06:34 | CT Scan Report ---
Exam(s): CT CHEST Without Contrast EXAM: CT Chest Without Intravenous Contrast CLINICAL HISTORY: Reason for exam: FUO. TECHNIQUE: Axial computed tomography images of the chest without intravenous contrast. Automated exposure control was utilized for the study. A dose lowering technique was utilized adhering to the principles of ALARA. COMPARISON: No relevant prior studies available. FINDINGS: Lungs: Mild infiltrates in the right upper lobe and right lower lobe. Atelectasis in the left lower lobe. No mass. Pleural space: Small bilateral pleural effusions. No pneumothorax. Heart: Unremarkable. No cardiomegaly. No significant pericardial effusion. Extensive coronary arterial calcifications. Bones/joints: Unremarkable. No acute fracture. No dislocation. Soft tissues: Unremarkable. Vasculature: Unremarkable. No thoracic aortic aneurysm. Lymph nodes: Unremarkable. No enlarged lymph nodes. IMPRESSION: Mild infiltrates in the right lung. Small bilateral pleural effusions. Electronically signed by: Dean Pugh MD 09/06/23 06:33 AM
--- NOTE | 2023-09-06 07:00 | CT Scan Report ---
Exam(s): CT ABDOMEN + PELVIS Without Contrast EXAM: CT Abdomen and Pelvis Without Intravenous Contrast CLINICAL HISTORY: Reason for exam: FUO. TECHNIQUE: Axial computed tomography images of the abdomen and pelvis without intravenous contrast. Automated exposure control was utilized for the study. A dose lowering technique was utilized adhering to the principles of ALARA. COMPARISON: CT March 31, 2022. FINDINGS: No acute or focal abnormalities are noted of the unenhanced liver, spleen or pancreas. The gallbladder has been removed. There is no hydronephrosis or perinephric fluid. No evidence of bowel obstruction. No abnormal fluid or regional inflammatory reaction. IMPRESSION: No acute findings. Electronically signed by: Dean Pugh MD 09/06/23 06:59 AM
[2023-09-06] MEDS: IPRATROPIUM BROMIDE NEB SOLN 0.02% 2.5 ML VIAL INH SCH ×4 (07:10→17:56)
[2023-09-06] MEDS: LEVALBUTEROL 1.25 MG/3 ML NEB NEB SCH ×4 (07:10→17:56)
[2023-09-06 07:39] LABS: Est GFR (African American) 46.5 ml/min; Phosphorus 2.4 mg/dl (2.5-4.9); Potassium 3.3 mmol/L (3.5-5.1)
[2023-09-06 07:40] LABS: BUN Creatinine Ratio 31.5 (10-20); Calcium 8.6 mg/dl (8.6-10.3); Creatinine Clr Calc Pharmacy 29.6 ml/min; Est GFR (Non-African American) 40.1 ml/min; Magnesium 1.8 mg/dl (1.7-2.4)
[2023-09-06 07:49] LABS: Acanthocytes 1+; Basophils # (auto) 0.09 K/uL (0.00-0.20); Basophils % (auto) 0.9 %; Hematocrit (blood only) 31.8 % (37.0-47.0); Hemoglobin 11.4 g/dl (12.0-16.0); Immature Granulocytes # (auto) 0.09 K/uL (0.01-0.20); Immature Granulocytes % (auto) 0.9 %; Lymphocytes # (auto) 0.94 K/uL (1.20-3.40); Lymphocytes % (auto) 9.8 %; Mean Corpuscular Hgb Conc 35.8 g/dL (32.0-36.0); Mean Corpuscular Volume 78.1 fL (80.0-100.0); Mean Platelet Volume 9.4 fL (9.4-12.4); Monocytes # (auto) 1.23 K/uL (0.11-0.59); Monocytes % (auto) 12.8 %; Neutrophils # (auto) 7.25 K/uL (1.40-6.50); Neutrophils % (auto) 75.6 %; Platelet Count 200 K/uL (130-400); Polychromasia 1+; RDW Coefficient of Variation 16.9 % (11.5-14.5); RDW Standard Deviation 47.9 fL (36.4-46.3); Red Blood Count 4.07 M/uL (4.20-5.40); Toxic Granulation 2+; Toxic Vacuolation 1+
[2023-09-06] MEDS ORDERED: LANTUS PER UNIT CHARGE SQ ONE ×2 (08:30→21:00)
--- NOTE | 2023-09-06 08:38 | XRay Report ---
XR chest 1V portable HISTORY: Sepsis COMPARISON: Chest 05/08/2023. FINDINGS: There are low lung volumes. The heart is normal in size. No pleural effusions. No pneumotho rax. No focal lung consolidations to suggest a pneumonia. No evidence for pulmonary edema. Prior chol ecystectomy. Right shoulder prosthesis. IMPRESSION: No significant change compared to the prior study. No acute process. ACT 112: Negative or not required by law. Electronically signed by: Peter Olivarez M.D. 09/06/2023 8:36 AM
[2023-09-06] MEDS ORDERED: XOPENEX/ATROVENT 1.25mg/0.5MG NEB COMBO NEB SCH (09:00)
[2023-09-06] MEDS ORDERED: NON-FORMULARY MEDICATION (Vit A,C And E-Lutein-Minerals [Ocuvite With Lutein] 1,000 unit-2 PO SCH (09:00)
[2023-09-06] MEDS ORDERED: METOPROLOL SUCC 25MG EXT REL TAB PO SCH (09:00)
[2023-09-06] MEDS: DULoxetine HCL 60 MG CAP PO SCH (09:02)
[2023-09-06] MEDS: CLOPIDOGREL BISULFATE 75 MG TAB PO SCH (09:02)
[2023-09-06] MEDS: FOLIC ACID 1 MG TAB PO SCH (09:02)
[2023-09-06] MEDS: ADVANCED PROBIOTIC 1250 MG CAPSULE PO SCH ×2 (09:03→20:40)
[2023-09-06] MEDS: FERROUS SULFATE 325 MG TAB PO SCH (09:03)
[2023-09-06] MEDS: MONTELUKAST SODIUM 10 MG TABLET PO SCH (09:03)
[2023-09-06] MEDS: PANTOprazole 40 MG TAB PO SCH (09:03)
[2023-09-06] MEDS: OXYBUTYNIN CHLORIDE XL 5 MG TABCR PO SCH (09:04)
[2023-09-06] MEDS: CHOLECALCIFEROL 1,000 UNITS 25 MCG TAB PO SCH (09:04)
[2023-09-06] MEDS: CEROVITE ADV FORMULA TAB PO SCH (09:05)
[2023-09-06] MEDS: THIAMINE HCL 50 MG TABLET PO SCH (09:05)
[2023-09-06] MEDS: FLUTICASONE/VILANTEROL 200/25MCG 14 PUFFS/INHALER INH SCH (09:05)
[2023-09-06] MEDS: VANCOMYCIN HCL 750 MG in SODIUM CHLORIDE 0.9% 250 ML IV SCH (09:19)
[2023-09-06] MEDS: POTASSIUM CHLORIDE / WTR 10 MEQ/100 ML PLCT IV SCH ×4 (09:19→12:30)
[2023-09-06] MEDS: ERTAPENEM SODIUM 1,000 MG in SYRINGE 0 ML IV SCH (09:32)
--- NOTE | 2023-09-06 10:20 | Cardiology Consultation ---
Date of Consultation September 06, 2023 Assessment & Plan (1) Sepsis: (2) Paroxysmal atrial fibrillation: (3) Takotsubo cardiomyopathy: (4) NSTEMI (non-ST elevated myocardial infarction): (5) Acute renal failure: (6) Acute metabolic encephalopathy: Plan 77-year-old female mated with acute sepsis and encephalopathy. Paroxysmal atrial fibrillation with rapid ventricular response noted on admission with echocardiographic evidence of severe LV systolic dysfunction. Wall motion abnormality suggesting stress-induced (Takotsubo) cardiomyopathy. Possible pneumonia on CT. I suspect elevated troponin secondary to demand ischemia, DKA, and stress-induced cardiomyopathy rather than acute plaque rupture event. Cultures pending. Antibiotic therapy as per internal medicine. Agree with continue gentle hydration with close attention to respiratory status and pulse oximetry. Daily BMP. Supplement electrolytes as indicated. Discontinue Toprol-XL in favor of metoprolol tartrate 25 mg 3 times daily to improve rate control. Continue intravenous heparin infusion. Hold amlodipine. Continue clopidogrel and rosuvastatin as ordered. Repeat resting 2D transthoracic echocardiogram in 2 to 4 days for reassessment of LV function and wall motion. History of Present Illness Reason for Consultation: NSTEMI Requesting Physician: Dr. Gutierrez Attending Physician: Rupert Oneal MD History of Present Illness 77-year-old female present to the emergency department with fevers, change in mental status, and lethargy. ECG demonstrating atrial fibrillation with rapid ventricular response as well as sinus rhythm with frequent PACs. Bedside portable ultrasound performed by ER physician last evening with concerns regarding LV systolic dysfunction. I discussed the results with the ER physician. Patient hemodynamically stable at that time with heart rates in the low 100s. Systolic blood pressure has remained above 100 mmHg overnight with IV hydration. Patient remains lethargic this morning. Arousable to verbal stimuli. Denies chest discomfort or heaviness. Recurrent fevers over the past several months. Recurrent fevers reported over the past few months. Currently treated with oral vancomycin for C. difficile colitis. Cultures pending. No orthopnea, PND, or lower extremity edema. Denies cough or dyspnea at rest. Telemetry reveals atrial fibrillation with heart rate ranging 105-120bpm. Denies palpitations. Preliminary review of bedside echocardiogram demonstrates severe LV systolic function with diffuse akinesis with sparing of the bases. Findings suggestive of stress-induced (Takotsubo) cardiomyopathy. Allergies Allergy/AdvReac Type Severity Reaction Status Date / Time Influenza Virus Vaccines Allergy Severe FLOWN TO Verified 09/05/23 20:43 [facility]. ciprofloxacin Allergy Intermediate RASH/BLEEDI Verified 09/05/23 20:43 NG methotrexate Allergy Intermediate RASH/PNEUMO Verified 09/05/23 20:43 [facility] Penicillins Allergy Intermediate hives Verified 09/05/23 20:43 ranitidine Allergy Intermediate rash Verified 09/05/23 20:43 Home Medications Medication Instructions Recorded Confirmed Type duloxetine 30 mg capsule,delayed 60 mg PO QAM 07/20/18 09/05/23 History release folic acid 1 mg tablet 1 mg PO QAM 07/20/18 09/05/23 History prednisone 5 mg tablet 5 mg PO QAM 07/20/18 09/05/23 History albuterol sulfate 90 mcg/actuation 2 puff inhalation Q4 PRN Shortness 03/07/19 09/05/23 History aerosol inhaler (ProAir HFA) Of Breath cyanocobalamin (vitamin B-12) 2,000 mcg PO [id number] 03/07/19 09/05/23 History 1,000 mcg tablet (Vitamin B-12) vit A 300 mcg-C 200 mg-E 27 1 tab PO QAM 03/07/19 09/05/23 History mg-lutein 2 mg and minerals tablet (Ocuvite with Lutein) [id number] 8 mg-folic 400 1 tab PO QAM 11/12/19 09/05/23 History mcg-K 50 mcg-lutein 300 mcg tablet (Centrum Silver Women) montelukast 10 mg tablet 10 mg PO QAM 11/15/20 09/05/23 History latanoprost 0.005 % eye drops 1 drp OPB HS 01/03/21 09/05/23 History solifenacin 10 mg tablet (Vesicare) 10 mg PO QAM 08/22/21 09/05/23 History acetaminophen 325 mg tablet 325 mg PO DIRECTED PRN Pain 03/21/22 09/05/23 History fluticasone furoate 200 1 inh inhalation DAILY 03/21/22 09/05/23 History mcg-vilanterol 25 mcg/dose inhalation powder (Breo Ellipta) thiamine HCl (vitamin B1) 100 mg 50 mg PO DAILY 03/21/22 09/05/23 History tablet vancomycin 125 mg capsule 125 mg PO Q6H 03/21/22 09/05/23 History clopidogrel 75 mg tablet 75 mg PO QAM #30 tabs 04/01/22 09/05/23 Rx Lactobacillus rhamnosus GG 5 5 cell PO BID 08/06/22 09/05/23 History billion cell oral powder packet (Culturelle TrackRs Probiotics) albuterol sulfate 2.5 mg/3 mL 2.5 mg inhalation DIRECTED PRN 08/06/22 09/05/23 History (0.083 %) solution for nebulization Shortness Of Breath Or Wheezing cholecalciferol (vitamin D3) 50 50 mcg PO QAM 08/06/22 09/05/23 History mcg (2,000 unit) capsule (Vitamin D3) ferrous sulfate 325 mg (65 mg 325 mg PO QAM 08/06/22 09/05/23 History iron) tablet menthol 0.44 %-zinc oxide 20.6 % 1 applic topical BID PRN AFFECTED 08/06/22 09/05/23 History topical ointment (Calmoseptine) AREA pantoprazole 40 mg tablet,delayed 40 mg PO QAM 08/06/22 09/05/23 History release (Protonix) triamcinolone acetonide 0.1 % 1 applic topical BID PRN AFFECTED 08/06/22 09/05/23 History topical cream AREA hydroxychloroquine 200 mg tablet 200 mg PO HS 30 days #30 tabs 08/31/22 09/05/23 Rx metoprolol succinate 25 mg 25 mg PO DAILY 05/08/23 09/05/23 History tablet,extended release 24 hr rosuvastatin 10 mg tablet 20 mg PO HS 05/08/23 09/05/23 History amlodipine 5 mg tablet 5 mg PO QAM 09/05/23 09/05/23 History levalbuterol HCl 1.25 mg/3 mL 1.25 mg inhalation Q4H PRN 09/05/23 09/05/23 History solution for nebulization WHEEZING/SOB/COUGH Patient History Medical History Wrist fracture, left History of stroke Thrush, oral Hyponatremia Nontraumatic rectus hematoma NSTEMI (non-ST elevated myocardial infarction) UTI (urinary tract infection) Immunosuppressed status DVT prophylaxis CKD (chronic kidney disease), stage III Acute hyponatremia Abnormal ECG Elevated troponin Syncope NSTEMI (non-ST elevated myocardial infarction) Visual hallucinations Hyponatremia RSV infection Recurrent Clostridium difficile diarrhea Chronic steroid use prednisone daily Gout H/O interstitial lung disease "drug induced- methotrexate " Osteoarthritis Glaucoma Peripheral neuropathy Dyslipidemia Rheumatoid arthritis "on chronic steroids" COPD (chronic obstructive pulmonary disease) inhalers prn Depression CKD (chronic kidney disease), stage III Gastroparesis DM type 2 (diabetes mellitus, type 2) GERD (gastroesophageal reflux disease) Migraines DJD of right shoulder NSTEMI (non-ST elevated myocardial infarction) (08/06/13) Asthma inhalers prn HTN (hypertension) Heart disease Surgical History History of tooth extraction all top teeth History of esophagogastroduodenoscopy (EGD) H/O cardiac catheterization "cath 07/2013- single vessel CAD involving apical segment LAD, medical management indicated" S/P total knee arthroplasty "left knee" History of hysterectomy H/O colonoscopy S/P rotator cuff repair "right shoulder" S/P removal of ovarian cyst Family History Father Family history of diabetes mellitus Mother Heart disease Hypertension Other No family history of adverse response to anesthesia Social History Smoking Status: Never smoker Second Hand Exposure: No; Do You Dip or Chew Tobacco: No; Tobacco Cessation Education Requested by Patient: No Hx Alcohol Use: No Hx Substance Use: No Preferred Language: Slovenian Communication Ability: Effective Production Tester Required: No Beliefs That Will Affect Care: None marital status: Current Living Situation: Spouse current occupational status: retired current occupation: Former [employer] Other Information That Helps Us Care for You: No Feels Safe at Home: Yes Safety Concerns: Feels Safe At This Time Assistive Devices: BiPap and Oxygen - Continuous Assistive Devices Comment: Pt. currently on BiPAP and O2, not while at home Review of Systems Review of Systems: Unobtainable due to cognitive status Physical Exam Constitutional: well nourished and + ill appearing; no acute distress Respiratory: normal respiratory effort; no respiratory distress Auscultation: + diminished lung sounds (Bases bilateral); no rales, no rhonchi and no wheezes Cardiovascular: Rate/Rhythm: + tachycardic and + irregularly irregular Heart Sounds: normal S1, normal S2 and + murmur (1/6 systolic ejection murmur) Vessels: no JVD and no carotid bruit Extremities: no edema Gastrointestinal (Abdomen): Inspection/Auscultation: normal bowel sounds; abdomen not distended Percussion/Palpation: abdomen soft; abdomen nontender, no guarding and abdomen not rigid Neurologic: CN's II-XI intact bilaterally and moves all extremities Results & Data Vital Signs (Past 12 Hours) Vital Signs Temp Pulse Pulse Resp BP BP Pulse Ox 09/06/23 08:29 36.8 C 110 H 18 129/88 98 09/06/23 07:10 103 H 28 H 96 09/06/23 07:06 103 H 29 H 96 09/06/23 04:14 36.4 C L 105 H 20 119/81 94 09/06/23 03:04 100 H 30 H 95 09/06/23 01:22 09/06/23 00:01 113 H 29 H 92 09/05/23 23:49 36.5 C 118 H 20 126/75 94 09/05/23 23:49 09/05/23 23:30 119 H 09/05/23 23:15 100 H 09/05/23 23:00 118 H 27 H 09/05/23 23:00 128/87 09/05/23 22:45 122/85 09/05/23 22:45 126 H 26 H 09/05/23 22:45 117 H 09/05/23 22:30 126/93 09/05/23 22:30 125 H 24 Pulse Ox O2 Del Method O2 Del Method FiO2 09/06/23 08:29 BiPAP 09/06/23 07:10 BiPAP 25 09/06/23 07:06 25 09/06/23 04:14 BiPAP 09/06/23 03:04 25 09/06/23 01:22 BiPAP 25 09/06/23 00:01 25 09/05/23 23:49 BiPAP 25 09/05/23 23:49 94 BiPAP 09/05/23 23:30 09/05/23 23:15 09/05/23 23:00 09/05/23 23:00 09/05/23 22:45 09/05/23 22:45 09/05/23 22:45 09/05/23 22:30 09/05/23 22:30 Laboratory Results Cardiac Enzymes 09/05/23 09/05/23 Range/Units 19:00 21:12 AST 56 H (13-39) U/L Troponin I High Sens 1190.9 H* 977.5 H* (0-14) pg/ml CBC 09/05/23 09/06/23 Range/Units 19:00 07:01 WBC 7.94 9.60 (4.8-10.8) K/ul RBC 4.60 4.07 L (4.20-5.40) M/uL Hgb 12.8 11.4 L (12.0-16.0) g/dl Hct 36.8 L 31.8 L (37.0-47.0) % Plt Count 245 200 (130-400) K/uL Neut # (Auto) 4.91 7.25 H (1.40-6.50) K/uL Lymph # (Auto) 1.83 0.94 L (1.20-3.40) K/uL Green # (Auto) 1.15 H 1.23 H (0.11-0.59) K/uL Eos # (Auto) 0.00 0.00 (0.00-0.50) K/uL Baso # (Auto) 0.01 0.09 (0.00-0.20) K/uL Comprehensive Metabolic Panel 09/05/23 09/06/23 09/06/23 Range/Units 19:00 02:41 07:01 Sodium 129 L 131 L 132 L (136-145) mmol/L Potassium 4.5 3.5 D 3.3 L (3.5-5.1) mmol/L Chloride 88 L 96 L 101 (98-107) mmol/L Carbon Dioxide 20 L 18 L 20 L (21-32) mmol/L BUN 42 H 42 H 41 H (6-23) mg/dl Creatinine 1.75 H 1.44 H D 1.30 H (0.6-1.2) mg/dl Glucose 280 H 325 H* 157 H (70-99(Fasting)) mg/dl Calcium 10.1 8.7 8.6 (8.6-10.3) mg/dl Direct Bilirubin 0.3 H (0-0.2) mg/dl AST 56 H (13-39) U/L ALT 32 (7-52) U/L Alkaline Phosphatase 116 H (34-104) U/L Total Protein 6.8 (6.0-8.3) gm/dl Albumin 3.6 (3.4-5.0) gm/dl Intake and Output 09/05/23 09/06/23 09/06/23 22:59 06:59 14:59 Intake Total 1500 / 3087.237 1587.237 / 3087.237 61.453 / 61.453 Output Total 150 / 275 125 / 275 Balance 1350 / 2812.237 1462.237 / 2812.237 61.453 / 61.453 Intake: IV 1500 / 3087.237 1587.237 / 3087.237 61.453 / 61.453 Acyclovir Sod 550 mg In 111 / 111 Dextrose 5% 100 ml @ 100 mls/hr IV Q12H [facility] Rx#:[id number] Heparin Sodium/Dextrose 25,000 82.6 / 82.6 40.8 / 40.8 units In 500 ml @ 600 UNITS/HR 12 mls/hr IV .Q24H [facility] Rx#: [id number] Insulin Regular 250 units In 21.137 / 21.137 12.32 / 12.32 Sodium Chloride 0.9% 247.5 ml @ 4.2 UNITS/HR 4.2 mls/hr IV . Q24H [facility] Rx#:[id number] Potassium Chloride / Wtr 10 meq 8.333 / 8.333 In 100 ml @ 100 mls/hr IV Q1H [facility] Rx#:[id number] Sodium Chlor 0.45% + 20Meq KCl 395.833 / 395.833 20 meq In 1,000 ml @ 125 mls/hr IV .Q8H [facility] Rx#:[id number] Sodium Chloride 0.9% 1,000 ml @ 1500 / 1706.667 206.667 / 1706.667 125 mls/hr IV .Q8H [facility] Rx#: [id number] Sodium Chloride 0.9% 500 ml @ 500 / 500 500 mls/hr IV .Q1H [facility] Rx#: [id number] Vancomycin HCl 1,000 mg In 270 / 270 Sodium Chloride 0.9% 250 ml @ 200 mls/hr IV NOW STA Rx#: [id number] Output: Urine Amount (Catheter) 150 / 275 125 / 275 Colon/Indwelling 150 / 275 125 / 275 Other: Weight 55.3 kg 55.2 kg Weight Measurement Method Built in Bedscale Built in Bedscale ECG Additional Comments: ECG: Atrial fibrillation with rapid ventricular response, PVCs versus aberrantly conducted complexes, right bundle branch block. (1) Sepsis Sepsis type: sepsis due to unspecified organism Sepsis acute organ dysfunction status: with acute organ dysfunction Severe sepsis acute organ dysfunction type: acute renal failure Acute renal failure type: unspecified Severe sepsis shock status: without septic shock Qualified Code(s): A41.9 - Sepsis, unspecified organism; R65.20 - Severe sepsis without septic shock; N17.9 - Acute kidney failure, unspecified (5) Acute renal failure Acute renal failure type: unspecified Qualified Code(s): N17.9 - Acute kidney failure, unspecified
[2023-09-06] MEDS ORDERED: NSS + 20MEQ KCL 20 MEQ/1,000 ML BAG IV SCH (10:30)
--- NOTE | 2023-09-06 10:43 | Pharmacy Report ---
Pharmacy PK ABX Note - Date of Service September 06, 2023 - Assessment and Plan Assessment 77 year old F receiving vancomycin/ertapenem/acyclovir for treatment of sepsis, meningitis r/o. Lumbar puncture planned for today. Pertinent microbiologic data includes: Negative MRSA Nasal Swab, Urine and blood cultures pending. Recent urine culture with ESBL Klebsiella, VRE (2021). Plan Vancomycin * Loading dose: 1000 mg IV x 1 * Maintenance dose: 750 mg IV every 24 hours * Regimen is predicted to achieve target AUC/WILLIE of 400-600 mg/L.hr * Random level ordered for 09/08 with AM labs Pharmacy will continue to follow and will adjust dose/frequency as necessary. Thank you. Pharmacy has transitioned to AUC monitoring for vancomycin. AUC/WILLIE is the preferred PK/PD target and is associated with decreased risk of nephrotoxicity compared to traditional trough targets.
--- NOTE | 2023-09-06 11:23 | Pharmacy Report ---
Pharmacy Glycemic Short Note 2 - Date of Service September 06, 2023 - Glycemic Short BSG Results (Last 24 hours): 09/05/23 09/05/23 09/06/23 19:00 19:05 00:23 Glucose 280 H POC Glucose 338 H* POC Glucose (other) 281 H 09/06/23 09/06/23 09/06/23 00:26 02:41 02:45 Glucose 325 H* POC Glucose 324 H* 325 H* POC Glucose (other) 09/06/23 09/06/23 09/06/23 03:31 04:32 05:33 Glucose POC Glucose 313 H* 226 H 181 H POC Glucose (other) 09/06/23 09/06/23 09/06/23 06:28 07:01 07:36 Glucose 157 H POC Glucose 163 H 166 H POC Glucose (other) 09/06/23 09/06/23 09:22 10:32 Glucose POC Glucose 130 H 106 H POC Glucose (other) OUTPATIENT ANTIDIABETIC REGIMEN: * None ASSESSMENT: * 77 year old F receiving vancomycin/ertapenem/acyclovir for treatment of sepsis, meningitis r/o. Lumbar puncture planned for today. Cardio consult, continuing with gentle hydration. Fluids D51/2NS + KCl - changed to NS +KCl. On Heparin drip. * Hyperglycemic, on hydrocortisone IV Q6H, A1c 6.9% on 05/09/23, updated A1c pending * Patient started on insulin drip/DKA protocol, running at 4.2units/hr this morning, AG closed, euglycemic, OK to transition to SQ insulin. * Overlap drip x 2.5hrs with basal, NovoLog for correction and carb coverage when diet resumed. NPO at this time. PLAN FOR INPATIENT GLYCEMIC CONTROL: * IV insulin infusion -DC at 11am * Basal insulin * Lantus 25 units SQ x 1 today at 0830, 10 units HS for BSG > 180mg/dl, continued dosing in AM * Bolus insulin * NovoLog per scale ACHS or Q6hrs while NPO * Goal Range: Low 110 mg/dL - High 140 mg/dL * Correction Factor: 30 mg/dL/unit * Nutritional / Prandial insulin per carb ratio of 1 unit per 10 grams CHO consumed
[2023-09-06] MEDS: INSULIN ASPART PER UNIT CHARGE SC SCH ×3 (12:30→20:39)
[2023-09-06] MEDS: METOPROLOL TARTRATE 25 MG TAB PO SCH ×2 (14:04→20:40)
--- NOTE | 2023-09-06 14:51 | Hospitalist Progress Note ---
Date of Service September 06, 2023 Assessment & Plan (1) Sepsis: Plan: 75-year-old female with past med history significant for type 2 diabetes, CKD stage III, hyperlipidemia, chronic drug-induced interstitial lung disorders, asthma mild persistent, COPD, chronic right-sided heart failure, hypertension, history of CAD, history of CVA, mild aortic stenosis, paroxysmal atrial fibrillation, moderate protein calorie malnutrition, slow transit constipation, vitamin B-12 and thiamine deficiency, history of esophageal dysphagia, GERD, gout, osteoarthritis, primary open-angle glaucoma, polyneuropathy, rheumatoid arthritis involving multiple sites with positive rheumatoid factor, depression, history of C. difficile, history of COVID, history of fever of unknown origin, presents with fever and lethargy. Sepsis, POA Metabolic encephalopathy likely due to sepsis Patient presents with fever and lethargy for 2 days. Chest x-rayno acute finding. CT chest- infiltrate on right lung field; small bilateral pleural effusion CT abdomen and pelvisno acute finding CT headno acute finding Urine cultureno acute finding Initially, concern for possible encephalitis/meningitis given fever and lethargy. Patient had reported neck pain. With initial resuscitation; patient mentation improving. No neck pain reported today. Started on ertapenem given her past urine culture shows Klebsiella pneumoniae ESBL Follow-up on blood culture. Continue IV fluids. Takotsubo cardiomyopathy NSTEMI Paroxysmal atrial fibrillation EKG on admission personally reviewed; atrial fibrillation with diffuse ST depression. High sensitive troponin elevated to 1190; downtrending Echocardiogram showed EF of 20 to 25%; large wall motion abnormality with severe hypokinesis to dyskinesis of mid and apical left ventricular myocardial wall. Currently on IV heparin. Continue Toprol XL discontinued; switched over to metoprolol tartrate for better rate control. Continue on Plavix and statin. Possible DKA Sugars in 300s and has anion gap Initially placed on insulin drip. Not on any medications at home. reports that her blood glucose has been around 110s to 120s most of the time but recently elevated to 200s Discontinue insulin drip Switched over to subcu insulin ANDRESSA on CKD stage III, likely prerenal due to sepsis Presented creatinine 1.7 Given fluids. Creatinine down trended to 1.3 History of asthma History of COPD History of drug-induced interstitial lung disorders Continue home inhalers DuoNebs as needed History of CAD Beta-rhoda with holding parameters Continue statin and Plavix History of paroxysmal atrial fibrillation On beta-rhoda On heparin drip Cardiology consulted History of CVA On statin and Plavix History of C. difficile Continue home p.o. vancomycin Will check stool for C. difficile History of esophageal dysphagia Speech consulted; restarting pured diet. History of hypertension Will hold amlodipine for sepsis Metoprolol with holding parameters History of rheumatoid arthritis Will hold Plaquenil On prednisone 5 mg daily which will be held Will replace on stress dose steroids IV hydrocortisone 50 mg every 6 hours History of vitamin B1 and B12 deficiency Continue supplements History of depression Continue duloxetine DVT prophylaxis On IV heparin Disposition Telemetry floor CODE STATUS full code if there is chance of recovery per discussion with Time spent evaluating patient, direct bedside care, chart review, placing orders, interpretation of diagnostic studies, discussion with consultants, patient, and family members, as well as other required patient management activities is 60 minutes Please note the above document was generated using voice recognition software. It may contain grammatical, syntax or spelling errors. Any formal questions or concerns about the content, text or information contained within the body of this dictation should be directly addressed to the provider for clarification Admission and Anticipated Discharge Date Admission Date: September 05, 2023 Subjective Patient seen in the morning and in afternoon. Earlier in the morning, patient was lethargic; awake eval by voice but falls back asleep. BiPAP was discontinued. Later in the day, patient was more oriented. She was sitting up straight on nasal cannula. Her was at bedside. Insulin drip discontinued Review of Systems Review of Systems: Unobtainable due to cognitive status Physical Exam 2 Physical Exam: Constitutional: Lethargic; awakeable by voice Respiratory: Crackles on left lower lung base. Cardiovascular: Irregular, no murmur, no edema Vessels: no JVD or carotid bruit Chest: normal inspection of chest Abdomen: Soft, nontender Musculoskeletal: no cyanosis or clubbing, extremities motor strength 5/5 Skin: no rashes, warm and dry normal turgor Neurologic: Awake able to voice. Oriented to self and place. No pain on neck flexion. Results & Data Results & Data Vital Signs (Past 12 Hours) Vital Signs Temp Pulse Pulse Resp BP Pulse Ox O2 Del Method 09/06/23 11:39 105 H 16 95 Nasal Cannula 09/06/23 11:00 36.5 C 115 H 20 135/68 97 BiPAP 09/06/23 10:00 107 H 09/06/23 08:29 36.8 C 110 H 18 129/88 98 BiPAP 09/06/23 07:10 103 H 28 H 96 BiPAP 09/06/23 07:06 103 H 29 H 96 09/06/23 04:14 36.4 C L 105 H 20 119/81 94 BiPAP 09/06/23 03:04 100 H 30 H 95 O2 Flow Rate FiO2 09/06/23 11:39 3 09/06/23 11:00 09/06/23 10:00 09/06/23 08:29 09/06/23 07:10 25 09/06/23 07:06 25 09/06/23 04:14 09/06/23 03:04 25 (1) Sepsis Sepsis type: sepsis due to unspecified organism Sepsis acute organ dysfunction status: with acute organ dysfunction Severe sepsis acute organ dysfunction type: acute renal failure Acute renal failure type: unspecified Severe sepsis shock status: without septic shock Qualified Code(s): A41.9 - Sepsis, unspecified organism; R65.20 - Severe sepsis without septic shock; N17.9 - Acute kidney failure, unspecified
[2023-09-06] MEDS ORDERED: FUROSEMIDE 40 MG/4 ML VIAL IV ONE (15:33)
--- NOTE | 2023-09-06 19:16 | Neurology Consultation ---
Date of Consultation September 06, 2023 Assessment & Plan (1) Altered mental status: acute worsening of mental status in a patient with a myriad of metabolic abnormalities, cardiac , ANDRESSA , chronic C diff, chronic immunosuppression On exam , minimally responsive with no obvious focality , difficulty exam Plan DD acute encephalopathy vs CND infections would continue to treat for both . It has been decided against LP given heparin. Obtain MRI of the Brain with and without contrast EEG Continue to reorient and monitor fluctuation Telehealth Consultation Telehealth Information Telehealth Information: I performed this visit using a real-time telehealth connection between my location and the patients location ([facility]). After connecting through interactive tele-video, patient was identified by name and date of and/or wristband check.Patient (or authorized healthcare community health program representative) was informed that this was a telemedicine visit and it was being conducted confidentially over secure lines. My office door was closed and no one else was present in the room with me.Patient (or authorized healthcare community health program representative) provided consent to proceed with the visit, expressed an understanding of privacy and security of the telemedicine visit, and gave permission to have a hospital community health program representative in the room in order to assist with the visit and to conduct portions of the visit, as needed. I informed the patient (or authorized healthcare community health program representative) that I reviewed their record and presented the opportunity for them to ask any questions regarding the visit today. The patient agreed to participate. History of Present Illness Reason for Consultation: altered mental status Requesting Physician: Dr Oneal Attending Physician: Rupert Oneal MD History of Present Illness Per HPI: 75-year-old female with past med history significant for type 2 diabetes, CKD stage III, hyperlipidemia, chronic drug-induced interstitial lung disorders, asthma mild persistent, COPD, chronic right-sided heart failure, hypertension, history of CAD, history of CVA, mild aortic stenosis, paroxysmal atrial fibrillation, moderate protein calorie malnutrition, slow transit constipation, vitamin B-12 and thiamine deficiency, history of esophageal dysphagia, GERD, gout, osteoarthritis, primary open-angle glaucoma, polyneuropathy, rheumatoid arthritis involving multiple sites with positive rheumatoid factor, depression, history of C. difficile, history of COVID, history of fever of unknown origin, presents with fever and lethargy. states since she had a stroke and C. difficile infection she gets fever on and off and seems confused at that time but it gets resolves but this time she is having fever for last 2 days and been lethargic and was not getting better and when he checked her pulse ox heart rate was in 150s at one point of time today afternoon which prompted him to bring her to hospital. Patient is on p.o. vancomycin 125 mg every 6 hours for several months as per . States recent test of C. difficile was negative as per . As per epic C. Diff test was negative in July 14 2023. As per PCP notes from July 10 2023 patient continues to have fevers once a month with associated confusion and generalized weakness and persist for 7 to 10 days before resolving. And also per PCP notes when she stops vancomycin diarrhea gets worse and there is is a plan for working on prior authorization for VOWST oral capsules. Patient currently placed on BiPAP. Seems very weak. Could tell her name but in very low volume. Just answering with the nodding of the head. Patient denies headache. Denies chest pain. States has neck pain. No nausea. Denies abdominal pain. As per diarrhea is currently resolved. She ambulates without support. But since yesterday she is feeling very weak and could not ambulate. Not eating much since yesterday. She is afebrile in the ER. Tachycardic."""" Allergies Allergy/AdvReac Type Severity Reaction Status Date / Time Influenza Virus Vaccines Allergy Severe FLOWN TO Verified 09/05/23 20:43 [facility]. ciprofloxacin Allergy Intermediate RASH/BLEEDI Verified 09/05/23 20:43 NG methotrexate Allergy Intermediate RASH/PNEUMO Verified 09/05/23 20:43 NITIS Penicillins Allergy Intermediate hives Verified 09/05/23 20:43 ranitidine Allergy Intermediate rash Verified 09/05/23 20:43 Home Medications Medication Instructions Recorded Confirmed Type duloxetine 30 mg capsule,delayed 60 mg PO QAM 07/20/18 09/05/23 History release folic acid 1 mg tablet 1 mg PO QAM 07/20/18 09/05/23 History prednisone 5 mg tablet 5 mg PO QAM 07/20/18 09/05/23 History albuterol sulfate 90 mcg/actuation 2 puff inhalation Q4 PRN Shortness 03/07/19 09/05/23 History aerosol inhaler (ProAir HFA) Of Breath cyanocobalamin (vitamin B-12) 2,000 mcg PO [id number] 03/07/19 09/05/23 History 1,000 mcg tablet (Vitamin B-12) vit A 300 mcg-C 200 mg-E 27 1 tab PO QAM 03/07/19 09/05/23 History mg-lutein 2 mg and minerals tablet (Ocuvite with Lutein) oovktcnq-ojtx-essr 8 mg-folic 400 1 tab PO QAM 11/12/19 09/05/23 History mcg-K 50 mcg-lutein 300 mcg tablet (Centrum Silver Women) montelukast 10 mg tablet 10 mg PO QAM 11/15/20 09/05/23 History latanoprost 0.005 % eye drops 1 drp OPB HS 01/03/21 09/05/23 History solifenacin 10 mg tablet (Vesicare) 10 mg PO QAM 08/22/21 09/05/23 History acetaminophen 325 mg tablet 325 mg PO DIRECTED PRN Pain 03/21/22 09/05/23 History fluticasone furoate 200 1 inh inhalation DAILY 03/21/22 09/05/23 History mcg-vilanterol 25 mcg/dose inhalation powder (Breo Ellipta) thiamine HCl (vitamin B1) 100 mg 50 mg PO DAILY 03/21/22 09/05/23 History tablet vancomycin 125 mg capsule 125 mg PO Q6H 03/21/22 09/05/23 History clopidogrel 75 mg tablet 75 mg PO QAM #30 tabs 04/01/22 09/05/23 Rx Lactobacillus rhamnosus GG 5 5 cell PO BID 08/06/22 09/05/23 History billion cell oral powder packet ([facility] Probiotics) albuterol sulfate 2.5 mg/3 mL 2.5 mg inhalation DIRECTED PRN 08/06/22 09/05/23 History (0.083 %) solution for nebulization Shortness Of Breath Or Wheezing cholecalciferol (vitamin D3) 50 50 mcg PO QAM 08/06/22 09/05/23 History mcg (2,000 unit) capsule (Vitamin D3) ferrous sulfate 325 mg (65 mg 325 mg PO QAM 08/06/22 09/05/23 History iron) tablet menthol 0.44 %-zinc oxide 20.6 % 1 applic topical BID PRN AFFECTED 08/06/22 09/05/23 History topical ointment (Calmoseptine) AREA pantoprazole 40 mg tablet,delayed 40 mg PO QAM 08/06/22 09/05/23 History release (Protonix) triamcinolone acetonide 0.1 % 1 applic topical BID PRN AFFECTED 08/06/22 09/05/23 History topical cream AREA hydroxychloroquine 200 mg tablet 200 mg PO HS 30 days #30 tabs 08/31/22 09/05/23 Rx metoprolol succinate 25 mg 25 mg PO DAILY 05/08/23 09/05/23 History tablet,extended release 24 hr rosuvastatin 10 mg tablet 20 mg PO HS 05/08/23 09/05/23 History amlodipine 5 mg tablet 5 mg PO QAM 09/05/23 09/05/23 History levalbuterol HCl 1.25 mg/3 mL 1.25 mg inhalation Q4H PRN 09/05/23 09/05/23 H istory solution for nebulization WHEEZING/SOB/COUGH Patient History Medical History Wrist fracture, left History of stroke Thrush, oral Hyponatremia Nontraumatic rectus hematoma NSTEMI (non-ST elevated myocardial infarction) UTI (urinary tract infection) Immunosuppressed status DVT prophylaxis CKD (chronic kidney disease), stage III Acute hyponatremia Abnormal ECG Elevated troponin Syncope NSTEMI (non-ST elevated myocardial infarction) Visual hallucinations Hyponatremia RSV infection Recurrent Clostridium difficile diarrhea Chronic steroid use prednisone daily Gout H/O interstitial lung disease "drug induced- methotrexate " Osteoarthritis Glaucoma Peripheral neuropathy Dyslipidemia Rheumatoid arthritis "on chronic steroids" COPD (chronic obstructive pulmonary disease) inhalers prn Depression CKD (chronic kidney disease), stage III Gastroparesis DM type 2 (diabetes mellitus, type 2) GERD (gastroesophageal reflux disease) Migraines DJD of right shoulder NSTEMI (non-ST elevated myocardial infarction) (08/06/13) Asthma inhalers prn HTN (hypertension) Heart disease Surgical History History of tooth extraction all top teeth History of esophagogastroduodenoscopy (EGD) H/O cardiac catheterization "cath 07/2013- single vessel CAD involving apical segment LAD, medical management indicated" S/P total knee arthroplasty "left knee" History of hysterectomy H/O colonoscopy S/P rotator cuff repair "right shoulder" S/P removal of ovarian cyst Family History Father Family history of diabetes mellitus Mother Heart disease Hypertension Other No family history of adverse response to anesthesia Social History Smoking Status: Never smoker Second Hand Exposure: No; Do You Dip or Chew Tobacco: No; Tobacco Cessation Education Requested by Patient: No Hx Alcohol Use: No Hx Substance Use: No Preferred Language: Pakistani Communication Ability: Effective Leach Cell Operator Required: No Beliefs That Will Affect Care: None marital status: Current Living Situation: Spouse current occupational status: retired current occupation: Former [employer] Other Information That Helps Us Care for You: No Feels Safe at Home: Yes Safety Concerns: Feels Safe At This Time Assistive Devices: BiPap and Oxygen - Continuous Assistive Devices Comment: Pt. currently on BiPAP and O2, not while at home Review of Systems Cannot obtain due to AMS Physical Exam General NEUROLOGIC EXAMINATION: Mental Status:opens eyes to painful stimulation , responds by nodding to verbal stimulation , does not follow commands Cranial Nerves: CN 2 - Cannot assess visual jauregui pupils round, equal, reactive to light CN 7 - no facial asymmetry CN 8 - intact hearing MOTOR: withdraws to painful stimulation x4, can hold arms up very briefly withdraws weakly with LE. posture laying more to the right side Results & Data Vital Signs (Past 12 Hours) Vital Signs Temp Pulse Pulse Resp BP Pulse Ox O2 Del Method 09/06/23 17:57 82 27 H 94 09/06/23 17:57 82 27 H 94 BiPAP 09/06/23 16:00 36.0 C L 98 H 22 120/78 97 BiPAP 09/06/23 15:05 Nasal Cannula 09/06/23 14:59 90 26 H 93 Nasal Cannula 09/06/23 11:39 105 H 16 95 Nasal Cannula 09/06/23 11:00 36.5 C 115 H 20 135/68 97 BiPAP 09/06/23 10:00 107 H 09/06/23 08:29 36.8 C 110 H 18 129/88 98 BiPAP O2 Flow Rate FiO2 09/06/23 17:57 25 09/06/23 17:57 25 09/06/23 16:00 09/06/23 15:05 2 12/24/23 14:59 2 09/06/23 11:39 3 09/06/23 11:00 09/06/23 10:00 09/06/23 08:29 Laboratory Results Laboratory Results - last 24 hr 09/05/23 09/05/23 09/05/23 19:00 19:18 21:12 WBC 7.94 RBC 4.60 Hgb 12.8 Hct 36.8 L MCV 80.0 MCH 27.8 MCHC 34.8 RDW Std Deviation 48.7 H RDW Coeff of Xochitl 16.8 H Plt Count 245 MPV 9.7 Immature Gran % (Auto) 0.5 Neut % (Auto) 61.9 Lymph % (Auto) 23.0 Mathews % (Auto) 14.5 Eos % (Auto) 0.0 Baso % (Auto) 0.1 Neut # (Auto) 4.91 Lymph # (Auto) 1.83 Mathews # (Auto) 1.15 H Eos # (Auto) 0.00 Baso # (Auto) 0.01 Immature Gran # (Auto) 0.04 Toxic Granulation 1+ Toxic Vacuolation Polychromasia 1+ Acanthocytes (Spur) 1+ Heparin Anti-Xa, Unfract VBG pH Sodium 129 L Potassium 4.5 Chloride 88 L Carbon Dioxide 20 L Anion Gap 21 H BUN 42 H Creatinine 1.75 H Est Cr Clr Drug Dosing 21.7 Est GFR ( Amer) 32.4 Est GFR (Non-Af Amer) 28.0 BUN/Creatinine Ratio 24.0 H Glucose 280 H POC Glucose Estimat Average Glucose Hemoglobin A1c Lactate 2.5 H* Calcium 10.1 Phosphorus Magnesium 2.0 Total Bilirubin 0.9 Direct Bilirubin 0.3 H AST 56 H ALT 32 Alkaline Phosphatase 116 H Troponin I High Sens 1190.9 H* 977.5 H* Total Protein 6.8 Albumin 3.6 Procalcitonin 4.22 H Urine Color Urine Appearance Urine pH Ur Specific Lenox Urine Protein Urine Glucose (UA) Urine Ketones Urine Blood Urine Nitrite Urine Bilirubin Urine Urobilinogen Ur Leukocyte Esterase Urine WBC (Auto) Urine RBC (Auto) U Hyaline Cast (Auto) U Epithel Cells (Auto) Urine Bacteria (Auto) Ur Renal Epithelial Cell Granular Casts Urine Yeast Nasal Screen MRSA (PCR) Adenovirus (PCR) Not Detected B. pertussis DNA (PCR) Not Detected B.parapertussis DNA PCR Not Detected C. pneumoniae DNA (PCR) Not Detected Coronavirus OC43 (PCR) Not Detected Coronavirus HKU1 (PCR) Not Detected Coronavirus 229E (PCR) Not Detected SARS-CoV-2 (PCR) Not Detected Coronavirus NL63 (PCR) Not Detected Human Metapneumovir PCR Not Detected Influenza Type A (PCR) Not Detected Influenza Type B (PCR) Not Detected M. pneumoniae (PCR) Not Detected Parainfluenza 1 (PCR) Not Detected Parainfluenza 2 (PCR) Not Detected Parainfluenza 3 (PCR) Not Detected Parainfluenza 4 (PCR) Not Detected RSV (PCR) Not Detected Entero/Rhino (PCR) Not Detected 09/05/23 09/06/23 09/06/23 Unknown 00: 00:26 WBC RBC Hgb Hct MCV MCH MCHC RDW Std Deviation RDW Coeff of Xochitl Plt Count MPV Immature Gran % (Auto) Neut % (Auto) Lymph % (Auto) Mathews % (Auto) Eos % (Auto) Baso % (Auto) Neut # (Auto) Lymph # (Auto) Mathews # (Auto) Eos # (Auto) Baso # (Auto) Immature Gran # (Auto) Toxic Granulation Toxic Vacuolation Polychromasia Acanthocytes (Spur) Heparin Anti-Xa, Unfract VBG pH Sodium Potassium Chloride Carbon Dioxide Anion Gap BUN Creatinine Est Cr Clr Drug Dosing Est GFR ( Amer) Est GFR (Non-Af Amer) BUN/Creatinine Ratio Glucose POC Glucose 338 H* 324 H* Estimat Average Glucose Hemoglobin A1c Lactate Calcium Phosphorus Magnesium Total Bilirubin Direct Bilirubin AST ALT Alkaline Phosphatase Troponin I High Sens Total Protein Albumin Procalcitonin Urine Color Dark Yellow Urine Appearance Cloudy A Urine pH 5.0 Ur Specific Lenox 1.021 Urine Protein 1+ H Urine Glucose (UA) Negative Urine Ketones Trace H Urine Blood Negative Urine Nitrite Negative Urine Bilirubin 1+ H Urine Urobilinogen Negative Ur Leukocyte Esterase Negative Urine WBC (Auto) 1-5 Urine RBC (Auto) 0-4 U Hyaline Cast (Auto) 10-30 H U Epithel Cells (Auto) >30 H Urine Bacteria (Auto) Negative Ur Renal Epithelial Cell Not Reportable Granular Casts 1-5 H Urine Yeast Not Reportable Nasal Screen MRSA (PCR) Adenovirus (PCR) B. pertussis DNA (PCR) B.parapertussis DNA PCR C. pneumoniae DNA (PCR) Coronavirus OC43 (PCR) Coronavirus HKU1 (PCR) Coronavirus 229E (PCR) SARS-CoV-2 (PCR) Coronavirus NL63 (PCR) Human Metapneumovir PCR Influenza Type A (PCR) Influenza Type B (PCR) M. pneumoniae (PCR) Parainfluenza 1 (PCR) Parainfluenza 2 (PCR) Parainfluenza 3 (PCR) Parainfluenza 4 (PCR) RSV (PCR) Entero/Rhino (PCR) 09/06/23 09/06/23 09/06/23 02:41 02:42 02:45 WBC RBC Hgb Hct MCV MCH MCHC RDW Std Deviation RDW Coeff of Xochitl Plt Count MPV Immature Gran % (Auto) Neut % (Auto) Lymph % (Auto) Mathews % (Auto) Eos % (Auto) Baso % (Auto) Neut # (Auto) Lymph # (Auto) Mathews # (Auto) Eos # (Auto) Baso # (Auto) Immature Gran # (Auto) Toxic Granulation Toxic Vacuolation Polychromasia Acanthocytes (Spur) Heparin Anti-Xa, Unfract 0.31 VBG pH 7.37 Sodium 131 L Potassium 3.5 D Chloride 96 L Carbon Dioxide 18 L Anion Gap 17 H BUN 42 H Creatinine 1.44 H D Est Cr Clr Drug Dosing 26.7 Est GFR ( Amer) 41.1 Est GFR (Non-Af Amer) 35.4 BUN/Creatinine Ratio 29.2 H Glucose 325 H* POC Glucose 325 H* Estimat Average Glucose Pending Hemoglobin A1c Pending Lactate Calcium 8.7 Phosphorus 3.7 Magnesium 1.8 Total Bilirubin Direct Bilirubin AST ALT Alkaline Phosphatase Troponin I High Sens Total Protein Albumin Procalcitonin Urine Color Urine Appearance Urine pH Ur Specific Lenox Urine Protein Urine Glucose (UA) Urine Ketones Urine Blood Urine Nitrite Urine Bilirubin Urine Urobilinogen Ur Leukocyte Esterase Urine WBC (Auto) Urine RBC (Auto) U Hyaline Cast (Auto) U Epithel Cells (Auto) Urine Bacteria (Auto) Ur Renal Epithelial Cell Granular Casts Urine Yeast Nasal Screen MRSA (PCR) Adenovirus (PCR) B. pertussis DNA (PCR) B.parapertussis DNA PCR C. pneumoniae DNA (PCR) Coronavirus OC43 (PCR) Coronavirus HKU1 (PCR) Coronavirus 229E (PCR) SARS-CoV-2 (PCR) Coronavirus NL63 (PCR) Human Metapneumovir PCR Influenza Type A (PCR) Influenza Type B (PCR) M. pneumoniae (PCR) Parainfluenza 1 (PCR) Parainfluenza 2 (PCR) Parainfluenza 3 (PCR) Parainfluenza 4 (PCR) RSV (PCR) Entero/Rhino (PCR) 09/06/23 09/06/23 09/06/23 03:31 04:32 05:33 WBC RBC Hgb Hct MCV MCH MCHC RDW Std Deviation RDW Coeff of Xochitl Plt Count MPV Immature Gran % (Auto) Neut % (Auto) Lymph % (Auto) Mathews % (Auto) Eos % (Auto) Baso % (Auto) Neut # (Auto) Lymph # (Auto) Mathews # (Auto) Eos # (Auto) Baso # (Auto) Immature Gran # (Auto) Toxic Granulation Toxic Vacuolation Polychromasia Acanthocytes (Spur) Heparin Anti-Xa, Unfract VBG pH Sodium Potassium Chloride Carbon Dioxide Anion Gap BUN Creatinine Est Cr Clr Drug Dosing Est GFR ( Amer) Est GFR (Non-Af Amer) BUN/Creatinine Ratio Glucose POC Glucose 313 H* 226 H 181 H Estimat Average Glucose Hemoglobin A1c Lactate Calcium Phosphorus Magnesium Total Bilirubin Direct Bilirubin AST ALT Alkaline Phosphatase Troponin I High Sens Total Protein Albumin Procalcitonin Urine Color Urine Appearance Urine pH Ur Specific Lenox Urine Protein Urine Glucose (UA) Urine Ketones Urine Blood Urine Nitrite Urine Bilirubin Urine Urobilinogen Ur Leukocyte Esterase Urine WBC (Auto) Urine RBC (Auto) U Hyaline Cast (Auto) U Epithel Cells (Auto) Urine Bacteria (Auto) Ur Renal Epithelial Cell Granular Casts Urine Yeast Nasal Screen MRSA (PCR) Adenovirus (PCR) B. pertussis DNA (PCR) B.parapertussis DNA PCR C. pneumoniae DNA (PCR) Coronavirus OC43 (PCR) Coronavirus HKU1 (PCR) Coronavirus 229E (PCR) SARS-CoV-2 (PCR) Coronavirus NL63 (PCR) Human Metapneumovir PCR Influenza Type A (PCR) Influenza Type B (PCR) M. pneumoniae (PCR) Parainfluenza 1 (PCR) Parainfluenza 2 (PCR) Parainfluenza 3 (PCR) Parainfluenza 4 (PCR) RSV (PCR) Entero/Rhino (PCR) 09/06/23 09/06/23 09/06/23 06:28 07:01 07:09 WBC 9.60 RBC 4.07 L Hgb 11.4 L Hct 31.8 L MCV 78.1 L MCH 28.0 MCHC 35.8 RDW Std Deviation 47.9 H RDW Coeff of Xochitl 16.9 H Plt Count 200 MPV 9.4 Immature Gran % (Auto) 0.9 Neut % (Auto) 75.6 Lymph % (Auto) 9.8 Mathews % (Auto) 12.8 Eos % (Auto) 0.0 Baso % (Auto) 0.9 Neut # (Auto) 7.25 H Lymph # (Auto) 0.94 L Mathews # (Auto) 1.23 H Eos # (Auto) 0.00 Baso # (Auto) 0.09 Immature Gran # (Auto) 0.09 Toxic Granulation 2+ Toxic Vacuolation 1+ Polychromasia 1+ Acanthocytes (Spur) 1+ Heparin Anti-Xa, Unfract VBG pH 7.39 Sodium 132 L Potassium 3.3 L Chloride 101 Carbon Dioxide 20 L Anion Gap 11 BUN 41 H Creatinine 1.30 H Est Cr Clr Drug Dosing 29.6 Est GFR ( Amer) 46.5 Est GFR (Non-Af Amer) 40.1 BUN/Creatinine Ratio 31.5 H Glucose 157 H POC Glucose 163 H Estimat Average Glucose Hemoglobin A1c Lactate Calcium 8.6 Phosphorus 2.4 L D Magnesium 1.8 Total Bilirubin Direct Bilirubin AST ALT Alkaline Phosphatase Troponin I High Sens 836.0 H* Total Protein Albumin Procalcitonin Urine Color Urine Appearance Urine pH Ur Specific Lenox Urine Protein Urine Glucose (UA) Urine Ketones Urine Blood Urine Nitrite Urine Bilirubin Urine Urobilinogen Ur Leukocyte Esterase Urine WBC (Auto) Urine RBC (Auto) U Hyaline Cast (Auto) U Epithel Cells (Auto) Urine Bacteria (Auto) Ur Renal Epithelial Cell Granular Casts Urine Yeast Nasal Screen MRSA (PCR) Adenovirus (PCR) B. pertussis DNA (PCR) B.parapertussis DNA PCR C. pneumoniae DNA (PCR) Coronavirus OC43 (PCR) Coronavirus HKU1 (PCR) Coronavirus 229E (PCR) SARS-CoV-2 (PCR) Coronavirus NL63 (PCR) Human Metapneumovir PCR Influenza Type A (PCR) Influenza Type B (PCR) M. pneumoniae (PCR) Parainfluenza 1 (PCR) Parainfluenza 2 (PCR) Parainfluenza 3 (PCR) Parainfluenza 4 (PCR) RSV (PCR) Entero/Rhino (PCR) 09/06/23 09/06/23 09/06/23 07:36 09:22 10:32 WBC RBC Hgb Hct MCV MCH MCHC RDW Std Deviation RDW Coeff of Xochitl Plt Count MPV Immature Gran % (Auto) Neut % (Auto) Lymph % (Auto) Mathews % (Auto) Eos % (Auto) Baso % (Auto) Neut # (Auto) Lymph # (Auto) Mathews # (Auto) Eos # (Auto) Baso # (Auto) Immature Gran # (Auto) Toxic Granulation Toxic Vacuolation Polychromasia Acanthocytes (Spur) Heparin Anti-Xa, Unfract VBG pH Sodium Potassium Chloride Carbon Dioxide Anion Gap BUN Creatinine Est Cr Clr Drug Dosing Est GFR ( Amer) Est GFR (Non-Af Amer) BUN/Creatinine Ratio Glucose POC Glucose 166 H 130 H 106 H Estimat Average Glucose Hemoglobin A1c Lactate Calcium Phosphorus Magnesium Total Bilirubin Direct Bilirubin AST ALT Alkaline Phosphatase Troponin I High Sens Total Protein Albumin Procalcitonin Urine Color Urine Appearance Urine pH Ur Specific [place] Urine Protein Urine Glucose (UA) Urine Ketones Urine Blood Urine Nitrite Urine Bilirubin Urine Urobilinogen Ur Leukocyte Esterase Urine WBC (Auto) Urine RBC (Auto) U Hyaline Cast (Auto) U Epithel Cells (Auto) Urine Bacteria (Auto) Ur Renal Epithelial Cell Granular Casts Urine Yeast Nasal Screen MRSA (PCR) Adenovirus (PCR) B. pertussis DNA (PCR) B.parapertussis DNA PCR C. pneumoniae DNA (PCR) Coronavirus OC43 (PCR) Coronavirus HKU1 (PCR) Coronavirus 229E (PCR) SARS-CoV-2 (PCR) Coronavirus NL63 (PCR) Human Metapneumovir PCR Influenza Type A (PCR) Influenza Type B (PCR) M. pneumoniae (PCR) Parainfluenza 1 (PCR) Parainfluenza 2 (PCR) Parainfluenza 3 (PCR) Parainfluenza 4 (PCR) RSV (PCR) Entero/Rhino (PCR) 09/06/23 09/06/23 09/06/23 11:05 12:11 17:01 WBC RBC Hgb Hct MCV MCH MCHC RDW Std Deviation RDW Coeff of Xochitl Plt Count MPV Immature Gran % (Auto) Neut % (Auto) Lymph % (Auto) Mathews % (Auto) Eos % (Auto) Baso % (Auto) Neut # (Auto) Lymph # (Auto) Mathews # (Auto) Eos # (Auto) Baso # (Auto) Immature Gran # (Auto) Toxic Granulation Toxic Vacuolation Polychromasia Acanthocytes (Spur) Heparin Anti-Xa, Unfract VBG pH Sodium Potassium Chloride Carbon Dioxide Anion Gap BUN Creatinine Est Cr Clr Drug Dosing Est GFR ( Amer) Est GFR (Non-Af Amer) BUN/Creatinine Ratio Glucose POC Glucose 126 H 200 H Estimat Average Glucose Hemoglobin A1c Lactate Calcium Phosphorus Magnesium Total Bilirubin Direct Bilirubin AST ALT Alkaline Phosphatase Troponin I High Sens 760.1 H* Total Protein Albumin Procalcitonin Urine Color Urine Appearance Urine pH Ur Specific [place] Urine Protein Urine Glucose (UA) Urine Ketones Urine Blood Urine Nitrite Urine Bilirubin Urine Urobilinogen Ur Leukocyte Esterase Urine WBC (Auto) Urine RBC (Auto) U Hyaline Cast (Auto) U Epithel Cells (Auto) Urine Bacteria (Auto) Ur Renal Epithelial Cell Granular Casts Urine Yeast Nasal Screen MRSA (PCR) Adenovirus (PCR) B. pertussis DNA (PCR) B.parapertussis DNA PCR C. pneumoniae DNA (PCR) Coronavirus OC43 (PCR) Coronavirus HKU1 (PCR) Coronavirus 229E (PCR) SARS-CoV-2 (PCR) Coronavirus NL63 (PCR) Human Metapneumovir PCR Influenza Type A (PCR) Influenza Type B (PCR) M. pneumoniae (PCR) Parainfluenza 1 (PCR) Parainfluenza 2 (PCR) Parainfluenza 3 (PCR) Parainfluenza 4 (PCR) RSV (PCR) Entero/Rhino (PCR) 09/06/23 09/06/23 18:11 Unknown WBC RBC Hgb Hct MCV MCH MCHC RDW Std Deviation RDW Coeff of Xochitl Plt Count MPV Immature Gran % (Auto) Neut % (Auto) Lymph % (Auto) Mathews % (Auto) Eos % (Auto) Baso % (Auto) Neut # (Auto) Lymph # (Auto) Mathews # (Auto) Eos # (Auto) Baso # (Auto) Immature Gran # (Auto) Toxic Granulation Toxic Vacuolation Polychromasia Acanthocytes (Spur) Heparin Anti-Xa, Unfract VBG pH Sodium Potassium Chloride Carbon Dioxide Anion Gap BUN Creatinine Est Cr Clr Drug Dosing Est GFR ( Amer) Est GFR (Non-Af Amer) BUN/Creatinine Ratio Glucose POC Glucose Estimat Average Glucose Hemoglobin A1c Lactate Calcium Phosphorus Magnesium Total Bilirubin Direct Bilirubin AST ALT Alkaline Phosphatase Troponin I High Sens 791.7 H* Total Protein Albumin Procalcitonin Urine Color Urine Appearance Urine pH Ur Specific [place] Urine Protein Urine Glucose (UA) Urine Ketones Urine Blood Urine Nitrite Urine Bilirubin Urine Urobilinogen Ur Leukocyte Esterase Urine WBC (Auto) Urine RBC (Auto) U Hyaline Cast (Auto) U Epithel Cells (Auto) Urine Bacteria (Auto) Ur Renal Epithelial Cell Granular Casts Urine Yeast Nasal Screen MRSA (PCR) Negative Adenovirus (PCR) B. pertussis DNA (PCR) B.parapertussis DNA PCR C. pneumoniae DNA (PCR) Coronavirus OC43 (PCR) Coronavirus HKU1 (PCR) Coronavirus 229E (PCR) SARS-CoV-2 (PCR) Coronavirus NL63 (PCR) Human Metapneumovir PCR Influenza Type A (PCR) Influenza Type B (PCR) M. pneumoniae (PCR) Parainfluenza 1 (PCR) Parainfluenza 2 (PCR) Parainfluenza 3 (PCR) Parainfluenza 4 (PCR) RSV (PCR) Entero/Rhino (PCR) Diagnostic Findings Chest X-Ray 09/05/23 19:02 XR chest 1V portable HISTORY: Sepsis COMPARISON: Chest 05/08/2023. FINDINGS: There are low lung volumes. The heart is normal in size. No pleural effusions. No pneumothorax. No focal lung consolidations to suggest a pneumonia. No evidence for pulmonary edema. Prior cholecystectomy. Right shoulder prosthesis. IMPRESSION: No significant change compared to the prior study. No acute process. ACT 112: Negative or not required by law. Electronically signed by: Peter Olivarez M.D. 09/06/2023 8:36 AM Abdomen/Pelvis CT 09/06/23 01:39 Exam(s): CT ABDOMEN + PELVIS Without Contrast EXAM: CT Abdomen and Pelvis Without Intravenous Contrast CLINICAL HISTORY: Reason for exam: FUO. TECHNIQUE: Axial computed tomography images of the abdomen and pelvis without intravenous contrast. Automated exposure control was utilized for the study. A dose lowering technique was utilized adhering to the principles of ALARA. COMPARISON: CT March 31, 2022. FINDINGS: No acute or focal abnormalities are noted of the unenhanced liver, spleen or pancreas. The gallbladder has been removed. There is no hydronephrosis or perinephric fluid. No evidence of bowel obstruction. No abnormal fluid or regional inflammatory reaction. IMPRESSION: No acute findings. Electronically signed by: Dean Pugh MD 09/06/23 06:[address] 09/06/23 01:39 Exam(s): CT CHEST Without Contrast EXAM: CT Chest Without Intravenous Contrast CLINICAL HISTORY: Reason for exam: FUO. TECHNIQUE: Axial computed tomography images of the chest without intravenous contrast. Automated exposure control was utilized for the study. A dose lowering technique was utilized adhering to the principles of ALARA. COMPARISON: No relevant prior studies available. FINDINGS: Lungs: Mild infiltrates in the right upper lobe and right lower lobe. Atelectasis in the left lower lobe. No mass. Pleural space: Small bilateral pleural effusions. No pneumothorax. Heart: Unremarkable. No cardiomegaly. No significant pericardial effusion. Extensive coronary arterial calcifications. Bones/joints: Unremarkable. No acute fracture. No dislocation. Soft tissues: Unremarkable. Vasculature: Unremarkable. No thoracic aortic aneurysm. Lymph nodes: Unremarkable. No enlarged lymph nodes. IMPRESSION: Mild infiltrates in the right lung. Small bilateral pleural effusions. Electronically signed by: Dean Pugh MD 09/06/23 06:[address] 09/06/23 01:39 Exam(s): CT HEAD Without Contrast EXAM: CT Head Without Intravenous Contrast CLINICAL HISTORY: Reason for exam: AMS. TECHNIQUE: Axial computed tomography images of the head/brain without intravenous contrast. Automated exposure control was utilized for the study. A dose lowering technique was utilized adhering to the principles of ALARA. COMPARISON: No relevant prior studies available. FINDINGS: No acute intracranial hemorrhage. No midline shift or mass effect. The territorial childs-white matter differentiation is maintained throughout. Age-related cerebral volume loss. Periventricular and subcortical white matter hypoattenuation, consistent with chronic microangiopathy. The visualized orbits appear grossly unremarkable. The calvarium is intact. The visualized paranasal sinuses and mastoid air cells are grossly clear. IMPRESSION: No acute intracranial hemorrhage, midline shift, or mass effect. Medications Administered Home Medications Medication Instructions Recorded Confirmed Last Taken duloxetine 30 mg capsule,delayed 60 mg PO QAM 11/06/18 12/23/23 12/23/23 release folic acid 1 mg tablet 1 mg PO QAM 07/20/18 09/05/23 09/05/23 prednisone 5 mg tablet 5 mg PO QAM 07/20/18 09/05/23 09/05/23 albuterol sulfate 90 mcg/actuation 2 puff inhalation Q4 PRN Shortness 03/07/19 09/05/23 05/07/23 aerosol inhaler (ProAir HFA) Of Breath cyanocobalamin (vitamin B-12) 2,000 mcg PO 3XWK 03/07/19 09/05/23 09/04/23 1,000 mcg tablet (Vitamin B-12) vit A 300 mcg-C 200 mg-E 27 1 tab PO QAM 03/07/19 09/05/23 09/05/23 mg-lutein 2 mg and minerals tablet (Ocuvite with Lutein) [id number] 8 mg-folic 400 1 tab PO QAM 11/12/19 09/05/23 09/05/23 mcg-K 50 mcg-lutein 300 mcg tablet (Centrum Silver Women) montelukast 10 mg tablet 10 mg PO QAM 11/15/20 09/05/23 09/05/23 latanoprost 0.005 % eye drops 1 drp OPB HS 01/03/21 09/05/23 09/04/23 solifenacin 10 mg tablet (Vesicare) 10 mg PO QAM 08/22/21 09/05/23 09/05/23 acetaminophen 325 mg tablet 325 mg PO DIRECTED PRN Pain 03/21/22 09/05/23 05/07/23 fluticasone furoate 200 1 inh inhalation DAILY 03/21/22 09/05/23 09/05/23 mcg-vilanterol 25 mcg/dose inhalation powder (Breo Ellipta) thiamine HCl (vitamin B1) 100 mg 50 mg PO DAILY 03/21/22 09/05/23 09/05/23 tablet vancomycin 125 mg capsule 125 mg PO Q6H 03/21/22 09/05/23 09/05/23 12:00 clopidogrel 75 mg tablet 75 mg PO QAM #30 tabs 04/01/22 09/05/23 09/05/23 Lactobacillus rhamnosus GG 5 5 cell PO BID 11/23/22 12/23/23 12/23/23 08:00 billion cell oral powder packet (Zarinae Kids Probiotics) albuterol sulfate 2.5 mg/3 mL 2.5 mg inhalation DIRECTED PRN 08/06/22 09/05/23 05/07/23 (0.083 %) solution for nebulization Shortness Of Breath Or Wheezing cholecalciferol (vitamin D3) 50 50 mcg PO QAM 08/06/22 09/05/23 09/05/23 mcg (2,000 unit) capsule (Vitamin D3) ferrous sulfate 325 mg (65 mg 325 mg PO QAM 08/06/22 09/05/23 09/05/23 iron) tablet menthol 0.44 %-zinc oxide 20.6 % 1 applic topical BID PRN AFFECTED 08/06/22 09/05/23 05/07/23 topical ointment (Calmoseptine) AREA pantoprazole 40 mg tablet,delayed 40 mg PO QAM 08/06/22 09/05/23 05/07/23 release (Protonix) triamcinolone acetonide 0.1 % 1 applic topical BID PRN AFFECTED 08/06/22 09/05/23 05/07/23 topical cream AREA hydroxychloroquine 200 mg tablet 200 mg PO HS 30 days #30 tabs 08/31/22 09/05/23 09/04/23 metoprolol succinate 25 mg 25 mg PO DAILY 05/08/23 09/05/23 09/05/23 tablet,extended release 24 hr rosuvastatin 10 mg tablet 20 mg PO HS 05/08/23 09/05/23 09/04/23 amlodipine 5 mg tablet 5 mg PO QAM 09/05/23 09/05/23 09/05/23 levalbuterol HCl 1.25 mg/3 mL 1.25 mg inhalation Q4H PRN 09/05/23 09/05/23 Unknown solution for nebulization WHEEZING/SOB/COUGH Active Medications Generic Name Dose Route Start Last Admin Trade Name Freq PRN Reason Stop Dose Admin Moreno Syrup 5 ml 09/06/23 01:45 09/06/23 17:23 Moreno Syrup 5 Ml Udp PO 09/16/23 01:44 5 ml Q6 KARLA Administration Clopidogrel Bisulfate 75 mg 09/06/23 09:00 09/06/23 09:02 Clopidogrel Bisulfate 75 Mg Tab PO 10/06/23 08:59 75 mg QAM KARLA Administration Duloxetine HCl 60 mg 09/06/23 09:00 09/06/23 09:02 Duloxetine Hcl 60 Mg Cap PO 10/06/23 08:59 60 mg QAM KARLA Administration Ferrous Sulfate 325 mg 09/06/23 09:00 09/06/23 09:03 Ferrous Sulfate 325 Mg Tab PO 10/06/23 08:59 325 mg QAM KARLA Administration Fluticasone/Vilanterol 1 puffs 09/06/23 09:00 09/06/23 09:05 Fluticasone/Vilanterol 200/25mcg 14 Puffs/Inhaler INH 10/06/23 08:59 1 puffs DAILY KARLA Administration Folic Acid 1 mg 09/06/23 09:00 09/06/23 09:02 Folic Acid 1 Mg Tab PO 10/06/23 08:59 1 mg QAM KARLA Administration Heparin Sodium/Dextrose 25,000 units in 500 mls @ 12 mls/hr 09/05/23 20:30 09/06/23 18:54 Heparin Sodium/Dextrose IV 10/05/23 20:29 600 units/hr .Q24H KARLA 12 mls/hr Titration Protocol 600 UNITS/HR Hydrocortisone Sodium 1 mls @ 4 mls/min 09/06/23 04:00 09/06/23 15:23 Succinate 50 mg/ Syringe IV 10/06/23 03:59 4 mls/min Q6H KARLA Administration Vancomycin HCl 750 mg/ Sodium 265 mls @ 200 mls/hr 09/06/23 10:00 09/06/23 10:42 Chloride IV 09/16/23 09:59 Infused Q24H KARLA Infusion Ertapenem 1,000 mg/ Syringe 10 mls @ 2 mls/min 09/06/23 09:00 09/06/23 09:32 IV 09/08/23 08:59 2 mls/min Q24H KARLA Administration Insulin Aspart 0 units 09/06/23 11:30 09/06/23 17:26 Insulin Aspart Per Unit Charge SC 10/06/23 11:29 2 units ACHS KARLA Administration Protocol Ipratropium [employer] 0.5 mg 09/06/23 07:00 09/06/23 17:56 Ipratropium [employer] Neb Soln 0.02% 2.5 Ml Vial INH 10/06/23 06:59 0.5 mg QIDR KARLA Administration Lactobacillus Acidophilus 2 cap 09/06/23 09:00 09/06/23 09:03 Advanced Probiotic 1250 Mg Capsule PO 10/06/23 08:59 2 cap BID KARLA Administration Levalbuterol HCl 1.25 mg 09/06/23 07:00 09/06/23 17:56 Levalbuterol 1.25 Mg/3 Ml Neb NEB 10/06/23 06:59 1.25 mg QIDR KARLA Administration Metoprolol Tartrate 25 mg 09/06/23 14:00 09/06/23 14:04 Metoprolol Tartrate 25 Mg Tab PO 10/06/23 13:59 25 mg TID KARLA Administration Montelukast Sodium 10 mg 09/06/23 09:00 09/06/23 09:03 Montelukast Sodium 10 Mg Tablet PO 10/06/23 08:59 10 mg QAM KARLA Administration Multivitamins/Minerals 1 tab 09/06/23 09:00 09/06/23 09:05 Cerovite Adv Formula Tab PO 10/06/23 08:59 1 tab QAM KARLA Administration Ondansetron HCl 4 mg 09/05/23 23:49 09/06/23 15:18 Ondansetron Inj 2 Mg/Ml 2 Ml Vial IV 10/05/23 23:48 4 mg Q6H PRN Administration Nausea Oxybutynin Chloride 10 mg 09/06/23 09:00 09/06/23 09:04 Oxybutynin Chloride Xl 5 Mg Tabcr PO 10/06/23 08:59 10 mg QAM KARLA Administration Pantoprazole Sodium 40 mg 09/06/23 09:00 09/06/23 09:03 Pantoprazole 40 Mg Tab PO 10/06/23 08:59 40 mg QAM KARLA Administration Thiamine HCl 50 mg 09/06/23 09:00 09/06/23 09:05 Thiamine Hcl 50 Mg Tablet PO 10/06/23 08:59 50 mg DAILY KARLA Administration Vancomycin HCl 125 mg 09/06/23 01:45 09/06/23 17:26 Vancomycin Hcl 125 Mg/2.5ml Soln PO 09/16/23 01:44 125 mg Q6 KARLA Administration Vitamin D 2,000 units 09/06/23 09:00 09/06/23 09:04 Cholecalciferol 1,000 Units 25 Mcg Tab PO 10/06/23 08:59 2,000 units QAM [facility] Administration
[2023-09-06] MEDS ORDERED: METOPROLOL TARTRATE 1 MG/ML VIAL IV PRN ×2 (19:43→19:54)
[2023-09-06] MEDS: ROSUVASTATIN CALCIUM 20 MG TAB PO SCH (20:40)
[2023-09-06] MEDS: LATANOPROST 0.005% OP SOLN 2.5 ML BTL OPB SCH (20:42)
[2023-09-07] MEDS: VANCOMYCIN HCL 125 MG/2.5ML SOLN PO SCH ×5 (00:16→23:06)
[2023-09-07] MEDS: CHERRY SYRUP 5 ML UDP PO SCH ×5 (00:16→23:06)
[2023-09-07] MEDS: HYDROCORTISONE SOD 50 MG in SYRINGE 0 ML IV SCH ×4 (03:00→21:42)
[2023-09-07 05:31] LABS: ANTI-Xa, UFH(UnfractionatedHep 0.53 IU/ml (0.3-0.7)
[2023-09-07] MEDS: HEPARIN SODIUM/DEXTROSE 25,000 UNITS/500 ML BAG IV SCH (05:59)
--- NOTE | 2023-09-07 06:12 | Electrocardiogram Report ---
Test Reason : Blood Pressure : / mmHG Vent. Rate : 135 BPM Atrial Rate : 000 BPM P-R Int : 000 ms QRS Dur : 118 ms QT Int : 318 ms P-R-T Axes : 000 047 256 degrees QTc Int : 477 ms Atrial fibrillation with rapid ventricular response with premature ventricular or aberrantly conducte d complexes Low voltage QRS Incomplete right bundle branch block Septal infarct , age undetermined Abnormal ECG When compared with ECG of 08-MAY-2023 10:21, Atrial fibrillation has replaced Sinus rhythm Septal infarct is now Present T wave inversion now evident in Lateral leads Confirmed by Bob Liu ([id number]) on 09/07/2023 6:12:10 AM Referred By: REFERRED SELF Confirmed By:Bob Liu
--- NOTE | 2023-09-07 06:13 | Electrocardiogram Report ---
Test Reason : Blood Pressure : / mmHG Vent. Rate : 111 BPM Atrial Rate : 102 BPM P-R Int : 192 ms QRS Dur : 126 ms QT Int : 392 ms P-R-T Axes : -24 150 -28 degrees QTc Int : 533 ms Sinus tachycardia with Premature ventricular complexes or Fusion complexes Right bundle branch block Septal infarct (cited on or before 05-SEP-2023) T wave abnormality, consider lateral ischemia Abnormal ECG When compared with ECG of 05-SEP-2023 19:09, (unconfirmed) Sinus rhythm has replaced Atrial fibrillation Confirmed by Bob Liu ([id number]) on 09/07/2023 6:13:05 AM Referred By: REFERRED SELF Confirmed By:Bob Liu
[2023-09-07] MEDS: IPRATROPIUM BROMIDE NEB SOLN 0.02% 2.5 ML VIAL INH SCH ×4 (06:17→19:47)
[2023-09-07] MEDS: LEVALBUTEROL 1.25 MG/3 ML NEB NEB SCH ×4 (06:17→19:47)
--- NOTE | 2023-09-07 06:22 | Electrocardiogram Report ---
Test Reason : Blood Pressure : / mmHG Vent. Rate : 143 BPM Atrial Rate : 115 BPM P-R Int : 000 ms QRS Dur : 112 ms QT Int : 258 ms P-R-T Axes : 000 106 054 degrees QTc Int : 398 ms Poor data quality, interpretation may be adversely affected Atrial fibrillation with rapid ventricular response with premature ventricular or aberrantly conducte d complexes Incomplete right bundle branch block Septal infarct (cited on or before 05-SEP-2023) Possible Lateral infarct , age undetermined Abnormal ECG When compared with ECG of 05-SEP-2023 20:10, (unconfirmed) Atrial fibrillation has replaced Sinus rhythm Borderline criteria for Lateral infarct are now Present Questionable change in initial forces of Septal leads Confirmed by Bob Liu ([id number]) on 09/07/2023 6:22:31 AM Referred By: REFERRED SELF Confirmed By:Bob Liu
--- NOTE | 2023-09-07 06:58 | Electrocardiogram Report ---
Test Reason : Blood Pressure : / mmHG Vent. Rate : 092 BPM Atrial Rate : 092 BPM P-R Int : 000 ms QRS Dur : 116 ms QT Int : 422 ms P-R-T Axes : 000 094 -35 degrees QTc Int : 521 ms Atrial fibrillation Rightward axis Low voltage QRS Incomplete right bundle branch block Septal infarct (cited on or before 05-SEP-2023) T wave abnormality, consider inferior ischemia T wave abnormality, consider anterolateral ischemia Prolonged QT Abnormal ECG When compared with ECG of 06-SEP-2023 05:38, Vent. rate has decreased BY 51 BPM Confirmed by Bob Liu ([id number]) on 09/07/2023 6:57:28 AM Referred By: REFERRED SELF Confirmed By:Bob Liu
[2023-09-07] MEDS ORDERED: IPRATROPIUM BROMIDE NEB SOLN 0.02% 2.5 ML VIAL INH SCH (07:00)
[2023-09-07 07:15] LABS: Estimated Average Glucose 134 mg/dl; Hemoglobin A1C 6.3 % (4.5-5.6)
[2023-09-07] MEDS ORDERED: LANTUS PER UNIT CHARGE SC SCH (09:00)
[2023-09-07] MEDS: MONTELUKAST SODIUM 10 MG TABLET PO SCH (09:06)
[2023-09-07] MEDS: DULoxetine HCL 60 MG CAP PO SCH (09:06)
[2023-09-07] MEDS: THIAMINE HCL 50 MG TABLET PO SCH (09:06)
[2023-09-07] MEDS: PANTOprazole 40 MG TAB PO SCH (09:07)
[2023-09-07] MEDS: CHOLECALCIFEROL 1,000 UNITS 25 MCG TAB PO SCH (09:07)
[2023-09-07] MEDS: CEROVITE ADV FORMULA TAB PO SCH (09:07)
[2023-09-07] MEDS: FERROUS SULFATE 325 MG TAB PO SCH (09:07)
[2023-09-07] MEDS: OXYBUTYNIN CHLORIDE XL 5 MG TABCR PO SCH (09:08)
[2023-09-07] MEDS: CLOPIDOGREL BISULFATE 75 MG TAB PO SCH (09:08)
[2023-09-07] MEDS: METOPROLOL TARTRATE 25 MG TAB PO SCH ×3 (09:08→20:37)
[2023-09-07] MEDS: ADVANCED PROBIOTIC 1250 MG CAPSULE PO SCH ×2 (09:09→20:37)
[2023-09-07] MEDS: FLUTICASONE/VILANTEROL 200/25MCG 14 PUFFS/INHALER INH SCH (09:09)
[2023-09-07] MEDS: FOLIC ACID 1 MG TAB PO SCH (09:10)
[2023-09-07] MEDS: INSULIN ASPART PER UNIT CHARGE SC SCH ×4 (09:11→20:38)
[2023-09-07 09:12] LABS: BUN Creatinine Ratio 28.2 (10-20); Calcium 8.5 mg/dl (8.6-10.3); Creatinine Clr Calc Pharmacy 23.6 ml/min; Est GFR (African American) 35.4 ml/min; Est GFR (Non-African American) 30.5 ml/min; Hematocrit (blood only) 31.5 % (37.0-47.0); Hemoglobin 10.9 g/dl (12.0-16.0); Mean Corpuscular Hemoglobin 27.9 pg (25.0-34.0); Mean Corpuscular Hgb Conc 34.6 g/dL (32.0-36.0); Mean Corpuscular Volume 80.8 fL (80.0-100.0); Mean Platelet Volume 10.1 fL (9.4-12.4); Platelet Count 221 K/uL (130-400); Potassium 4.7 mmol/L (3.5-5.1); RDW Coefficient of Variation 17.5 % (11.5-14.5); RDW Standard Deviation 50.8 fL (36.4-46.3); White Blood Count 15.13 K/ul (4.8-10.8)
[2023-09-07] MEDS: VANCOMYCIN HCL 750 MG in SODIUM CHLORIDE 0.9% 250 ML IV SCH (09:15)
[2023-09-07] MEDS: ERTAPENEM SODIUM 1,000 MG in SYRINGE 0 ML IV SCH (09:16)
[2023-09-07 09:56] LABS: Acanthocytes 1+; Basophilic Stippling 1+; Basophils # (auto) 0.14 K/uL (0.00-0.20); Basophils % (auto) 0.9 %; Echinocytes 2+; Immature Granulocytes # (auto) 0.19 K/uL (0.01-0.20); Immature Granulocytes % (auto) 1.3 %; Lymphocytes # (auto) 0.89 K/uL (1.20-3.40); Lymphocytes % (auto) 5.9 %; Monocytes # (auto) 1.14 K/uL (0.11-0.59); Monocytes % (auto) 7.5 %; Neutrophils # (auto) 12.77 K/uL (1.40-6.50); Neutrophils % (auto) 84.4 %; Polychromasia 1+; Toxic Granulation 2+; Toxic Vacuolation 1+
--- NOTE | 2023-09-07 12:44 | Hospitalist Progress Note ---
Date of Service September 07, 2023 Assessment & Plan (1) Sepsis: Plan: 75-year-old female with past med history significant for type 2 diabetes, CKD stage III, hyperlipidemia, chronic drug-induced interstitial lung disorders, asthma mild persistent, COPD, chronic right-sided heart failure, hypertension, history of CAD, history of CVA, mild aortic stenosis, paroxysmal atrial fibrillation, moderate protein calorie malnutrition, slow transit constipation, vitamin B-12 and thiamine deficiency, history of esophageal dysphagia, GERD, gout, osteoarthritis, primary open-angle glaucoma, polyneuropathy, rheumatoid arthritis involving multiple sites with positive rheumatoid factor, depression, history of C. difficile, history of COVID, history of fever of unknown origin, presents with fever and lethargy. Sepsis, POA Metabolic encephalopathy likely due to sepsis Patient presents with fever and lethargy for 2 days. Patient reports sore throat and mostly slow voice. Chest x-rayno acute finding. CT chest- infiltrate on right lung field; small bilateral pleural effusion CT abdomen and pelvisno acute finding CT headno acute finding Urine cultureno acute finding Blood cultureno growth Initially, concern for possible encephalitis/meningitis given fever and lethargy. Patient had reported neck pain. With initial resuscitation; patient mentation improving. No neck pain reported today. Started on ertapenem given her past urine culture shows Klebsiella pneumoniae ESBL. Plan to continue. DC vancomycin Takotsubo cardiomyopathy NSTEMI Paroxysmal atrial fibrillation EKG on admission personally reviewed; atrial fibrillation with diffuse ST depression. High sensitive troponin elevated to 1190; downtrending Echocardiogram showed EF of 20 to 25%; large wall motion abnormality with severe hypokinesis to dyskinesis of mid and apical left ventricular myocardial wall. Currently on IV heparin. Continue Toprol XL discontinued; switched over to metoprolol tartrate for better rate control. Continue on Plavix and statin. Plan to repeat echocardiogram in 2 to 3 days. Possible DKA Sugars in 300s and has anion gap Initially placed on insulin drip. Not on any medications at home. reports that her blood glucose has been around 110s to 120s most of the time but recently elevated to 200s Continue on subcu insulin. Pharmacy glycemic control on board ANDRESSA on CKD stage III, likely prerenal due to sepsis Hyponatremia likely due to ANDRESSA Presented creatinine 1.7 Was given fluids Currently creatinine is 1.63 Monitor urine output with strict TERRI's History of asthma History of COPD History of drug-induced interstitial lung disorders Continue home inhalers DuoNebs as needed Also on hypertonic saline. History of CAD Beta-rhoda with holding parameters Continue statin and Plavix History of paroxysmal atrial fibrillation On beta-rhoda On heparin drip Cardiology on board. History of CVA On statin and Plavix History of C. difficile Continue home p.o. vancomycin Will check stool for C. difficile History of esophageal dysphagia Speech consulted; restarting pured diet. History of hypertension Will hold amlodipine for sepsis Metoprolol with holding parameters History of rheumatoid arthritis Will hold Plaquenil On prednisone 5 mg daily which will be held Will replace on stress dose steroids IV hydrocortisone 50 mg every 6 hours. Continue for now. History of vitamin B1 and B12 deficiency Continue supplements History of depression Continue duloxetine DVT prophylaxis On IV heparin Disposition Telemetry floor CODE STATUS full code if there is chance of recovery per discussion with Time spent evaluating patient, direct bedside care, chart review, placing orders, interpretation of diagnostic studies, discussion with consultants, patient, and family members, as well as other required patient management activities is 50 minutes Please note the above document was generated using voice recognition software. It may contain grammatical, syntax or spelling errors. Any formal questions or concerns about the content, text or information contained within the body of this dictation should be directly addressed to the provider for clarification Admission and Anticipated Discharge Date Admission Date: September 05, 2023 Subjective Patient seen and examined at bedside. She appears to be tired but is able to answer questions. She reports of sore throat and hoarseness in her voice. No other complaints. Review of Systems Review of Systems: All systems reviewed & are unremarkable except as noted in Subjective Physical Exam Physical Exam: Constitutional: Awake able voice; able to answer few questions. Respiratory: Crackles on left lower lung base. Cardiovascular: Irregular, no murmur, no edema Vessels: no JVD or carotid bruit Chest: normal inspection of chest Abdomen: Soft, nontender Musculoskeletal: no cyanosis or clubbing, extremities motor strength 5/5 Skin: no rashes, warm and dry normal turgor Neurologic: Awake able to voice. Oriented to self and place. No pain on neck flexion. Results & Data Results & Data Vital Signs (Past 12 Hours) Vital Signs Temp Pulse Resp BP Pulse Ox O2 Del Method O2 Flow Rate 09/07/23 11:54 97 H 22 92 Nasal Cannula 2 09/07/23 09:05 36.5 C 101 H 20 108/76 97 Nasal Cannula 2.5 09/07/23 08:03 36.4 C L 100 H 19 108/72 99 Room Air 09/07/23 06:17 94 H 22 97 Nasal Cannula 2 09/07/23 03:45 36.4 C L 94 H 20 110/72 97 Nasal Cannula 2.0 (1) Sepsis Sepsis type: sepsis due to unspecified organism Sepsis acute organ dysfunction status: with acute organ dysfunction Severe sepsis acute organ dysfunction type: acute renal failure Acute renal failure type: unspecified Severe sepsis shock status: without septic shock Qualified Code(s): A41.9 - Sepsis, unspecified organism; R65.20 - Severe sepsis without septic shock; N17.9 - Acute kidney failure, unspecified
--- NOTE | 2023-09-07 14:04 | Communication Note ---
Date of Service: September 07, 2023 Neurology follow up communication= Chart/documentation reviewed Agree with continued current therapies Continue antimicrobial treatment Continue to monitor neurological assessments Continue to monitor mentation closely Keep low threshold fo stat CT brain without contrast for any neurological decline Proceed with neurology recommendations
[2023-09-07] MEDS: THIAMINE HCL 250 MG in SODIUM CHLORIDE 0.9% 50 ML IV SCH ×2 (14:39→21:44)
--- NOTE | 2023-09-07 16:05 | Cardiology Progress Note ---
Date of Service September 07, 2023 Assessment & Plan (1) Sepsis: (2) Paroxysmal atrial fibrillation: (3) Takotsubo cardiomyopathy: (4) NSTEMI (non-ST elevated myocardial infarction): (5) Acute renal failure: (6) Acute metabolic encephalopathy: Plan 77-year-old female mated with acute sepsis and encephalopathy. Paroxysmal atrial fibrillation with rapid ventricular response noted on admission with echocardiographic evidence of severe LV systolic dysfunction. Wall motion abnormality suggesting stress-induced (Takotsubo) cardiomyopathy. Possible pneumonia on CT. I suspect elevated troponin secondary to demand ischemia, DKA, and stress-induced cardiomyopathy rather than acute plaque rupture event. Cultures negative x 24 hours. Continue broad-spectrum antibiotic therapy per internal medicine. Continue to monitor fluid balance and oxygenation in the setting of IV antibiotic therapy and IV hydration. No need for IV diuretic therapy currently. Toprol-XL 25 mg daily discontinued in favor of metoprolol tartrate 25 mg 3 times daily 09/06/23. Continue intravenous heparin infusion. Hold amlodipine. Continue clopidogrel and rosuvastatin as ordered. Repeat resting 2D transthoracic echocardiogram in 2 to 3 days for reassessment of LV function and wall motion. Admission and Anticipated Discharge Date Admission Date: September 05, 2023 Subjective Patient seen and examined at the bedside. More alert today. Notes cough without sputum production. No chest discomfort or shortness of breath at rest. Family present at bedside. Heart rate improved on telemetry. Currently atrial fibrillation at approximate 100 bpm. Denies palpitations or lightheadedness. Review of Systems 2 Review of Systems: All systems reviewed & are unremarkable except as noted in Subjective Physical Exam Constitutional: well nourished and + ill appearing; no acute distress Respiratory: normal respiratory effort; no respiratory distress Auscultation: + diminished lung sounds (Bases bilateral); no rales, no rhonchi and no wheezes Cardiovascular: Rate/Rhythm: + tachycardic and + irregularly irregular Heart Sounds: normal S1, normal S2 and + murmur (1/6 systolic ejection murmur) Vessels: no JVD and no carotid bruit Extremities: no edema Gastrointestinal (Abdomen): Inspection/Auscultation: normal bowel sounds; abdomen not distended Percussion/Palpation: abdomen soft; abdomen nontender, no guarding and abdomen not rigid Neurologic: CN's II-XI intact bilaterally and moves all extremities Results & Data Vital Signs (Past 12 Hours) Vital Signs Temp Pulse Resp BP Pulse Ox O2 Del Method O2 Flow Rate 09/07/23 15:29 90 18 96 Nasal Cannula 3 09/07/23 11:54 97 H 22 92 Nasal Cannula 2 09/07/23 11:45 36.4 C L 104 H 21 116/65 98 Nasal Cannula 2.5 09/07/23 09:05 36.5 C 101 H 20 108/76 97 Nasal Cannula 2.5 09/07/23 08:03 36.4 C L 100 H 19 108/72 99 Room Air 09/07/23 06:17 94 H 22 97 Nasal Cannula 2 Laboratory Results Cardiac Enzymes 09/06/23 Range/Units 18:11 Troponin I High Sens 791.7 H* (0-14) pg/ml CBC 09/07/23 Range/Units 04:13 WBC 15.13 H (4.8-10.8) K/ul RBC 3.90 L (4.20-5.40) M/uL Hgb 10.9 L (12.0-16.0) g/dl Hct 31.5 L (37.0-47.0) % Plt Count 221 (130-400) K/uL Neut # (Auto) 12.77 H (1.40-6.50) K/uL Lymph # (Auto) 0.89 L (1.20-3.40) K/uL [place] # (Auto) 1.14 H (0.11-0.59) K/uL Eos # (Auto) 0.00 (0.00-0.50) K/uL Baso # (Auto) 0.14 (0.00-0.20) K/uL Comprehensive Metabolic Panel 09/07/23 Range/Units 04:13 Sodium 129 L (136-145) mmol/L Potassium 4.7 D (3.5-5.1) mmol/L Chloride 99 (98-107) mmol/L Carbon Dioxide 19 L (21-32) mmol/L BUN 46 H (6-23) mg/dl Creatinine 1.63 H D (0.6-1.2) mg/dl Glucose 105 H (70-99(Fasting)) mg/dl Calcium 8.5 L (8.6-10.3) mg/dl Intake and Output 09/07/23 09/07/23 09/07/23 06:59 14:59 22:59 Intake Total 133 / 2111.265 356.1 / 676.1 320 / 676.1 Output Total 100 / 600 201 / 201 Balance 33 / 1511.265 356.1 / 475.1 119 / 475.1 Intake: IV 133 / 1861.265 356.1 / 356.1 Heparin Sodium/Dextrose 25,000 133 / 315.4 38.6 / 38.6 units In 500 ml @ 600 UNITS/HR 12 mls/hr IV .Q24H KARLA Rx#: [id number] Thiamine HCl 250 mg In Sodium 52.5 / 52.5 Chloride 0.9% 50 ml @ 210 mls/ hr IV Q8H KARLA Rx#:[id number] Vancomycin HCl 750 mg In Sodium 265 / 265 Chloride 0.9% 250 ml @ 200 mls /hr IV Q24H [facility] Rx#:[id number] Oral 0 / 250 320 / 320 Output: Urine Amount (Catheter) 100 / 600 200 / 200 Colon/Indwelling 100 / 600 200 / 200 # Bowel Movements Other: Weight 57 kg Weight Measurement Method Built in [facility] (1) Sepsis Sepsis type: sepsis due to unspecified organism Sepsis acute organ dysfunction status: with acute organ dysfunction Severe sepsis acute organ dysfunction type: encephalopathy Severe sepsis shock status: without septic shock Qualified Code(s): A41.9 - Sepsis, unspecified organism; R65.20 - Severe sepsis without septic shock; G93.41 - Metabolic encephalopathy (5) Acute renal failure Acute renal failure type: unspecified Qualified Code(s): N17.9 - Acute kidney failure, unspecified
[2023-09-07] MEDS: SODIUM CHLOR 7% 4 ML NEB NEB SCH (19:47)
[2023-09-07] MEDS: LATANOPROST 0.005% OP SOLN 2.5 ML BTL OPB SCH (20:37)
[2023-09-07] MEDS: ROSUVASTATIN CALCIUM 20 MG TAB PO SCH (20:37)
[2023-09-08] MEDS ORDERED: METOPROLOL TARTRATE 1 MG/ML VIAL IV STA (01:03)
[2023-09-08] MEDS: HYDROCORTISONE SOD 50 MG in SYRINGE 0 ML IV SCH ×4 (03:11→22:00)
[2023-09-08 04:53] LABS: Hematocrit (blood only) 31.4 % (37.0-47.0); Hemoglobin 10.7 g/dl (12.0-16.0); Mean Corpuscular Hemoglobin 27.9 pg (25.0-34.0); Mean Corpuscular Hgb Conc 34.1 g/dL (32.0-36.0); Mean Platelet Volume 9.2 fL (9.4-12.4); Platelet Count 242 K/uL (130-400); RDW Coefficient of Variation 17.7 % (11.5-14.5); RDW Standard Deviation 51.8 fL (36.4-46.3); Red Blood Count 3.83 M/uL (4.20-5.40); White Blood Count 16.76 K/ul (4.8-10.8)
[2023-09-08 05:14] LABS: Basophils # (auto) 0.08 K/uL (0.00-0.20); Basophils % (auto) 0.5 %; Echinocytes 2+; Immature Granulocytes # (auto) 0.21 K/uL (0.01-0.20); Immature Granulocytes % (auto) 1.3 %; Lymphocytes # (auto) 0.69 K/uL (1.20-3.40); Lymphocytes % (auto) 4.1 %; Monocytes # (auto) 0.84 K/uL (0.11-0.59); Neutrophils # (auto) 14.94 K/uL (1.40-6.50); Neutrophils % (auto) 89.1 %; Polychromasia 1+; Toxic Granulation 1+
[2023-09-08 05:15] LABS: BUN Creatinine Ratio 28.3 (10-20); Calcium 8.5 mg/dl (8.6-10.3); Creatinine Clr Calc Pharmacy 22.2 ml/min; Est GFR (African American) 32.9 ml/min; Est GFR (Non-African American) 28.4 ml/min; Phosphorus 3.7 mg/dl (2.5-4.9); Potassium 4.5 mmol/L (3.5-5.1)
[2023-09-08 05:16] LABS: ANTI-Xa, UFH(UnfractionatedHep 0.68 IU/ml (0.3-0.7)
[2023-09-08] MEDS: THIAMINE HCL 250 MG in SODIUM CHLORIDE 0.9% 50 ML IV SCH ×3 (05:16→21:59)
[2023-09-08] MEDS: CHERRY SYRUP 5 ML UDP PO SCH ×4 (05:16→23:33)
[2023-09-08] MEDS: VANCOMYCIN HCL 125 MG/2.5ML SOLN PO SCH ×4 (05:16→23:33)
[2023-09-08] MEDS: HEPARIN SODIUM/DEXTROSE 25,000 UNITS/500 ML BAG IV SCH (05:29)
[2023-09-08] MEDS: IPRATROPIUM BROMIDE NEB SOLN 0.02% 2.5 ML VIAL INH SCH ×4 (07:08→19:15)
[2023-09-08] MEDS: SODIUM CHLOR 7% 4 ML NEB NEB SCH ×2 (07:08→19:15)
[2023-09-08] MEDS: LEVALBUTEROL 1.25 MG/3 ML NEB NEB SCH ×4 (07:08→19:15)
[2023-09-08] MEDS: INSULIN ASPART PER UNIT CHARGE SC SCH ×4 (08:50→21:19)
[2023-09-08] MEDS: ERTAPENEM SODIUM 500 MG in SYRINGE 0 ML IV SCH (08:53)
[2023-09-08] MEDS: OXYBUTYNIN CHLORIDE XL 5 MG TABCR PO SCH (08:54)
[2023-09-08] MEDS: CLOPIDOGREL BISULFATE 75 MG TAB PO SCH (08:54)
[2023-09-08] MEDS: CHOLECALCIFEROL 1,000 UNITS 25 MCG TAB PO SCH (08:54)
[2023-09-08] MEDS: MONTELUKAST SODIUM 10 MG TABLET PO SCH (08:55)
[2023-09-08] MEDS: ADVANCED PROBIOTIC 1250 MG CAPSULE PO SCH ×2 (08:55→21:20)
[2023-09-08] MEDS: FERROUS SULFATE 325 MG TAB PO SCH (08:55)
[2023-09-08] MEDS: METOPROLOL TARTRATE 25 MG TAB PO SCH ×3 (08:56→21:20)
[2023-09-08] MEDS: PANTOprazole 40 MG TAB PO SCH (08:56)
[2023-09-08] MEDS: DULoxetine HCL 60 MG CAP PO SCH (08:56)
[2023-09-08] MEDS: FOLIC ACID 1 MG TAB PO SCH (08:57)
[2023-09-08] MEDS: CEROVITE ADV FORMULA TAB PO SCH (08:57)
[2023-09-08] MEDS: FLUTICASONE/VILANTEROL 200/25MCG 14 PUFFS/INHALER INH SCH (08:57)
--- NOTE | 2023-09-08 09:38 | Pharmacy Report ---
Pharmacy Glycemic Short Note 2 - Date of Service September 08, 2023 - Glycemic Short BSG Results (Last 24 hours): 09/07/23 09/07/23 09/07/23 11:40 16:57 20:15 Glucose POC Glucose 125 H 121 H 89 09/08/23 09/08/23 09/08/23 00:17 04:31 07:54 Glucose 92 POC Glucose 91 104 H OUTPATIENT ANTIDIABETIC REGIMEN: * None HbA1c: 6.3% (09/06/23) ASSESSMENT: 09/08/23: * BSGs well-controlled yesterday, ranging 89-125 mg/dL * Received 19 units of insulin (4 units of bolus and 15 units of basal) * Antibiotics de-escalated to ertapenem monotherapy * Remains on hydrocortisone 50 mg IV q6h and heparin infusion (mixed in dextrose) * Basal dose decreased yesterday and fasting BSG continues to trend down to 104 mg/dL * Will reduce basal insulin today 09/06/23: * 77 year old F receiving vancomycin/ertapenem/acyclovir for treatment of sepsis, meningitis r/o. Lumbar puncture planned for today. Cardio consult, continuing with gentle hydration. Fluids D51/2NS + KCl - changed to NS +KCl. On Heparin drip. * Hyperglycemic, on hydrocortisone IV Q6H, A1c 6.9% on 05/09/23, updated A1c pending * Patient started on insulin drip/DKA protocol, running at 4.2units/hr this morning, AG closed, euglycemic, OK to transition to SQ insulin. * Overlap drip x 2.5hrs with basal, NovoLog for correction and carb coverage when diet resumed. NPO at this time. PLAN FOR INPATIENT GLYCEMIC CONTROL: * Basal insulin * Lantus 0-5 units SC HS * Bolus insulin * NovoLog per scale ACHS or Q6hrs while NPO * Goal Range: Low 110 mg/dL - High 140 mg/dL * Correction Factor: 30 mg/dL/unit * Nutritional / Prandial insulin per carb ratio of 1 unit per 10 grams CHO consumed
--- NOTE | 2023-09-08 14:48 | Hospitalist Progress Note ---
Date of Service September 08, 2023 Assessment & Plan (1) Sepsis: Plan: 75-year-old female with past med history significant for type 2 diabetes, CKD stage III, hyperlipidemia, chronic drug-induced interstitial lung disorders, asthma mild persistent, COPD, chronic right-sided heart failure, hypertension, history of CAD, history of CVA, mild aortic stenosis, paroxysmal atrial fibrillation, moderate protein calorie malnutrition, slow transit constipation, vitamin B-12 and thiamine deficiency, history of esophageal dysphagia, GERD, gout, osteoarthritis, primary open-angle glaucoma, polyneuropathy, rheumatoid arthritis involving multiple sites with positive rheumatoid factor, depression, history of C. difficile, history of COVID, history of fever of unknown origin, presents with fever and lethargy. Sepsis, POA Metabolic encephalopathy likely due to sepsis Patient presents with fever and lethargy for 2 days. Patient reports sore throat and hoarse voice Chest x-rayno acute finding. CT chest- infiltrate on right lung field; small bilateral pleural effusion CT abdomen and pelvisno acute finding CT headno acute finding Urine cultureno acute finding Blood cultureno growth Initially, concern for possible encephalitis/meningitis given fever and lethargy. Patient had reported neck pain. With initial resuscitation; patient mentation improving. No neck pain reported today. Started on ertapenem given her past urine culture shows Klebsiella pneumoniae ESBL. Plan to continue. Will repeat chest x-ray today. Appreciate neurology input; MRI brain without contrast ordered as patient has ANDRESSA. EEG ordered. Can consider lumbar puncture if patient continues to be encephalopathic after she is off heparin drip. Takotsubo cardiomyopathy NSTEMI Paroxysmal atrial fibrillation EKG on admission personally reviewed; atrial fibrillation with diffuse ST depression. High sensitive troponin elevated to 1190; downtrending Echocardiogram showed EF of 20 to 25%; large wall motion abnormality with severe hypokinesis to dyskinesis of mid and apical left ventricular myocardial wall. Currently on IV heparin. Continue Toprol XL discontinued; switched over to metoprolol tartrate for better rate control. Continue on Plavix and statin. Plan to repeat echocardiogram in 2 to 3 days as per cardiology. Possible DKA, resolved Sugars in 300s and has anion gap on admission Initially placed on insulin drip. Not on any medications at home. reports that her blood glucose has been around 110s to 120s most of the time but recently elevated to 200s Continue on subcu insulin. Pharmacy glycemic control on board ANDRESSA on CKD stage III, likely prerenal due to sepsis vs cardiorenal Hyponatremia likely due to ANDRESSA Presented creatinine 1.7 Unable to give more fluids due to low EF. Patient is 4 L positive since admission. Will consult nephrology for comanagement. History of asthma History of COPD History of drug-induced interstitial lung disorders Continue home inhalers DuoNebs as needed Also on hypertonic saline. History of CAD Beta-rhoda with holding parameters Continue statin and Plavix History of paroxysmal atrial fibrillation On beta-rhoda On heparin drip Cardiology on board. History of CVA On statin and Plavix History of C. difficile Continue home p.o. vancomycin Will check stool for C. difficile History of esophageal dysphagia Speech consulted; restarting pured diet. History of hypertension Will hold amlodipine for sepsis Metoprolol with holding parameters History of rheumatoid arthritis Will hold Plaquenil On prednisone 5 mg daily which will be held Was placed on stress dose steroids IV hydrocortisone 50 mg every 6 hours. Will decrease the frequency to every 8 hours. Gradually wean back down to prednisone 5 mg once daily. History of vitamin B1 and B12 deficiency Continue supplements History of depression Continue duloxetine DVT prophylaxis On IV heparin Disposition Telemetry floor Discussed goals of care with her at bedside today. He acknowledges patient has dealt with multiple medical issues for the last 2 years. Plan is to continue current care for now. CODE STATUS changed to DNR/DNI as per discussion. If patient decompensate further; plan to switch over to comfort care after rediscussing with him. Time spent evaluating patient, direct bedside care, chart review, placing orders, interpretation of diagnostic studies, discussion with consultants, patient, and family members, as well as other required patient management activities is 60 minutes Please note the above document was generated using voice recognition software. It may contain grammatical, syntax or spelling errors. Any formal questions or concerns about the content, text or information contained within the body of this dictation should be directly addressed to the provider for clarification Admission and Anticipated Discharge Date Admission Date: September 05, 2023 Subjective Patient seen and examined at bedside. She is sleepy but awake able by voice. She is in mild respiratory distress. Afebrile Review of Systems Review of Systems: All systems reviewed & are unremarkable except as noted in Subjective Physical Exam Physical Exam: Constitutional: Awake able voice; able to answer few questions. Respiratory: Crackles on left lower lung base. Cardiovascular: Irregular, no murmur, no edema Vessels: no JVD or carotid bruit Chest: normal inspection of chest Abdomen: Soft, nontender Musculoskeletal: no cyanosis or clubbing, extremities motor strength 5/5 Skin: no rashes, warm and dry normal turgor Neurologic: Awake able to voice. Oriented to self and place. No pain on neck flexion. Results & Data Results & Data Vital Signs (Past 12 Hours) Vital Signs Temp Pulse Pulse Resp BP Pulse Ox O2 Del Method 09/08/23 14:18 85 16 96 Nasal Cannula 09/08/23 11:08 89 17 95 Nasal Cannula 09/08/23 11:06 97 H 09/08/23 10:48 36.4 C L 104 H 19 116/65 98 Nasal Cannula 09/08/23 09:54 Nasal Cannula 09/08/23 07:44 99 H 20 110/70 99 Nasal Cannula 09/08/23 07:08 86 17 95 Nasal Cannula 09/08/23 04:19 36.4 C L 97 H 22 110/69 97 Nasal Cannula O2 Flow Rate 09/08/23 14:18 1 09/08/23 11:08 2 09/08/23 11:06 09/08/23 10:48 2.5 09/08/23 09:54 2 09/08/23 07:44 2.5 09/08/23 07:08 2 09/08/23 04:19 2 (1) Sepsis Sepsis type: sepsis due to unspecified organism Sepsis acute organ dysfunction status: with acute organ dysfunction Severe sepsis acute organ dysfunction type: encephalopathy Severe sepsis shock status: without septic shock Qualified Code(s): A41.9 - Sepsis, unspecified organism; R65.20 - Severe sepsis without septic shock; G93.41 - Metabolic encephalopathy
--- NOTE | 2023-09-08 15:32 | XRay Report ---
XR chest 1V portable HISTORY: 77 years-old Female RUle out pulmonary edema acute shortness of breath COMPARISON: Chest CT 09/06/2016 TECHNIQUE: AP view of the chest FINDINGS: Cardiac silhouette is enlarged. Mild right hemidiaphragmatic elevation. Small pleural effusions are a gain noted. Pulmonary vascular congestion. Mild bibasilar and right midlung airspace opacities are ag ain noted. No pneumothorax. Cholecystectomy. Degenerative changes of the spinal shoulder. Reverse rig ht shoulder arthroplasty. Mild gaseous distention of the stomach. IMPRESSION: 1. Cardiomegaly with mild pulmonary edema and small pleural effusions. 2. Mild bibasilar and right midlung opacities are again noted. ACT 112: Negative or not required by law. The above report was generated using voice recognition software. It may contain grammatical, syntax o r spelling errors. Electronically signed by: Brant Mccoy M.D. 09/08/2023 3:31 PM
[2023-09-08] MEDS ORDERED: FUROSEMIDE 40 MG/4 ML VIAL IV ONE (16:02)
--- NOTE | 2023-09-08 16:25 | Cardiology Progress Note ---
Date of Service September 08, 2023 Assessment & Plan (1) Sepsis: (2) Paroxysmal atrial fibrillation: (3) Acute heart failure with reduced ejection fraction and diastolic dysfunction: (4) Takotsubo cardiomyopathy: (5) NSTEMI (non-ST elevated myocardial infarction): (6) Acute renal failure: (7) Acute metabolic encephalopathy: Plan 77-year-old female mated with acute sepsis and encephalopathy. Paroxysmal atrial fibrillation with rapid ventricular response noted on admission with echocardiographic evidence of severe LV systolic dysfunction. Wall motion abnormality suggesting stress-induced (Takotsubo) cardiomyopathy. Possible pneumonia on CT. I suspect elevated troponin secondary to demand ischemia, DKA, and stress-induced cardiomyopathy rather than acute plaque rupture event. Cultures negative x 48 hours. Broad-spectrum antibiotic therapy per internal medicine. Patient appears volume overloaded today with nearly 5 L positive fluid balance since admission. Agree with Lasix 40 mg IV x 1 with repeat BMP in AM. Reassess volume status 09/09/2023. Toprol-XL 25 mg daily discontinued in favor of metoprolol tartrate 25 mg 3 times daily 09/06/23. Continue intravenous heparin infusion. Hold amlodipine. Continue clopidogrel and rosuvastatin as ordered. Repeat resting 2D transthoracic echocardiogram 09/10/2023 for reassessment of LV function and wall motion. Admission and Anticipated Discharge Date Admission Date: September 05, 2023 Subjective Patient seen examined the bedside. More short of breath today. Cumulative fluid balance +4.8 L since admission due to IV therapies and hydration. Denies chest pain or heaviness. Telemetry revealing atrial fibrillation and 80-90s. Remains borderline hypotensive. Review of Systems Review of Systems: All systems reviewed & are unremarkable except as noted in Subjective Physical Exam Constitutional: well nourished and + ill appearing; no acute distress Respiratory: normal respiratory effort; no respiratory distress Auscultation: + diminished lung sounds (Bases bilateral); no rales, no rhonchi and no wheezes Cardiovascular: Rate/Rhythm: + tachycardic and + irregularly irregular Heart Sounds: normal S1, normal S2 and + murmur (1/6 systolic ejection murmur) Vessels: no JVD and no carotid bruit Extremities: no edema Gastrointestinal (Abdomen): Inspection/Auscultation: normal bowel sounds; abdomen not distended Percussion/Palpation: abdomen soft; abdomen nontender, no guarding and abdomen not rigid Neurologic: CN's II-XI intact bilaterally and moves all extremities Results & Data Vital Signs (Past 12 Hours) Vital Signs Temp Pulse Pulse Resp BP Pulse Ox O2 Del Method 09/08/23 15:27 36.6 C 106 H 20 98/62 L 97 Nasal Cannula 09/08/23 14:18 85 16 96 Nasal Cannula 09/08/23 11:08 89 17 95 Nasal Cannula 09/08/23 11:06 97 H 09/08/23 10:48 36.4 C L 104 H 19 116/65 98 Nasal Cannula 09/08/23 09:54 Nasal Cannula 09/08/23 07:44 99 H 20 110/70 99 Nasal Cannula 09/08/23 07:08 86 17 95 Nasal Cannula O2 Flow Rate 09/08/23 15:27 2.5 09/08/23 14:18 1 09/08/23 11:08 2 09/08/23 11:06 09/08/23 10:48 2.5 09/08/23 09:54 2 09/08/23 07:44 2.5 09/08/23 07:08 2 Laboratory Results CBC 09/08/23 Range/Units 04:31 WBC 16.76 H (4.8-10.8) K/ul RBC 3.83 L (4.20-5.40) M/uL Hgb 10.7 L (12.0-16.0) g/dl Hct 31.4 L (37.0-47.0) % Plt Count 242 (130-400) K/uL Neut # (Auto) 14.94 H (1.40-6.50) K/uL Lymph # (Auto) 0.69 L (1.20-3.40) K/uL [place] # (Auto) 0.84 H (0.11-0.59) K/uL Eos # (Auto) 0.00 (0.00-0.50) K/uL Baso # (Auto) 0.08 (0.00-0.20) K/uL Comprehensive Metabolic Panel 09/08/23 Range/Units 04:31 Sodium 131 L (136-145) mmol/L Potassium 4.5 (3.5-5.1) mmol/L Chloride 100 (98-107) mmol/L Carbon Dioxide 19 L (21-32) mmol/L BUN 49 H (6-23) mg/dl Creatinine 1.73 H (0.6-1.2) mg/dl Glucose 92 (70-99(Fasting)) mg/dl Calcium 8.5 L (8.6-10.3) mg/dl Intake and Output 09/08/23 09/08/23 09/08/23 06:59 14:59 22:59 Intake Total 179.9 / 1074.5 Output Total 100 / 501 Balance 79.9 / 573.5 Intake: IV 179.9 / 704.5 Heparin Sodium/Dextrose 25,000 127.4 / 282.0 units In 500 ml @ 600 UNITS/HR 12 mls/hr IV .Q24H [facility] Rx#: [id number] Thiamine HCl 250 mg In Sodium 52.5 / 157.5 Chloride 0.9% 50 ml @ 210 mls/ hr IV Q8H [facility] Rx#:[id number] Oral 0 / 370 Output: Urine Amount (Catheter) 100 / 500 Colon/Indwelling 100 / 500 Other: Weight 57.8 kg Weight Measurement Method Built in [facility] (1) Sepsis Sepsis type: sepsis due to unspecified organism Sepsis acute organ dys function status: with acute organ dysfunction Severe sepsis acute organ dysfunction type: encephalopathy Severe sepsis shock status: without septic shock Qualified Code(s): A41.9 - Sepsis, unspecified organism; R65.20 - Severe sepsis without septic shock; G93.41 - Metabolic encephalopathy (6) Acute renal failure Acute renal failure type: unspecified Qualified Code(s): N17.9 - Acute kidney failure, unspecified
[2023-09-08] MEDS ORDERED: LANTUS PER UNIT CHARGE SC SCH (21:00)
[2023-09-08] MEDS: ROSUVASTATIN CALCIUM 20 MG TAB PO SCH (21:20)
[2023-09-08] MEDS: LATANOPROST 0.005% OP SOLN 2.5 ML BTL OPB SCH (21:20)
--- NOTE | 2023-09-08 21:30 | Magnetic Resonance Report ---
Exam(s): MRI HEAD Without Contrast EXAM: MR Head Without Intravenous Contrast CLINICAL HISTORY: Reason for exam: AMS. TECHNIQUE: Magnetic resonance images of the head/brain without intravenous contrast in multiple planes. COMPARISON: Reference is made to prior head CT dated 09/06/2023 FINDINGS: Brain: Unremarkable. No mass. No hemorrhage. No acute infarct. Ventricles: Unremarkable. No ventriculomegaly. Bones/joints: Unremarkable. No acute fracture. Sinuses: Unremarkable as visualized. No acute sinusitis. Mastoid air cells: Unremarkable as visualized. No mastoid effusion. Orbits: Unremarkable as visualized. IMPRESSION: 1. 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 Mild blooming artifact within the brain parenchyma suggesting hemosiderin deposition. No large intracranial hemorrhage identified on this exam. Electronically signed by: Owen Still MD 09/08/23 21:29 PM
[2023-09-09 04:46] LABS: Hematocrit (blood only) 28.1 % (37.0-47.0); Hemoglobin 9.4 g/dl (12.0-16.0); Mean Corpuscular Hemoglobin 27.9 pg (25.0-34.0); Mean Corpuscular Hgb Conc 33.5 g/dL (32.0-36.0); Mean Corpuscular Volume 83.4 fL (80.0-100.0); Mean Platelet Volume 9.2 fL (9.4-12.4); Platelet Count 185 K/uL (130-400); RDW Coefficient of Variation 17.6 % (11.5-14.5); RDW Standard Deviation 52.3 fL (36.4-46.3); Red Blood Count 3.37 M/uL (4.20-5.40); White Blood Count 13.47 K/ul (4.8-10.8)
[2023-09-09 04:57] LABS: Albumin Level 2.9 gm/dl (3.4-5.0); BUN Creatinine Ratio 26.2 (10-20); Bilirubin,Total 0.5 mg/dl (0.2-1.0); Calcium 8.6 mg/dl (8.6-10.3); Est GFR (African American) 25.8 ml/min; Est GFR (Non-African American) 22.3 ml/min; Globulin 2.8 gm/dl (2.5-4.0); Phosphorus 3.9 mg/dl (2.5-4.9); Potassium 4.4 mmol/L (3.5-5.1); Total Protein 5.7 gm/dl (6.0-8.3)
[2023-09-09] MEDS: VANCOMYCIN HCL 125 MG/2.5ML SOLN PO SCH ×4 (05:02→23:40)
[2023-09-09] MEDS: CHERRY SYRUP 5 ML UDP PO SCH ×4 (05:02→23:40)
[2023-09-09] MEDS: THIAMINE HCL 250 MG in SODIUM CHLORIDE 0.9% 50 ML IV SCH ×3 (05:03→22:12)
[2023-09-09 05:05] LABS: ANTI-Xa, UFH(UnfractionatedHep 0.85 IU/ml (0.3-0.7)
[2023-09-09 05:07] LABS: Basophils # (auto) 0.06 K/uL (0.00-0.20); Basophils % (auto) 0.4 %; Echinocytes 1+; Immature Granulocytes # (auto) 0.19 K/uL (0.01-0.20); Immature Granulocytes % (auto) 1.4 %; Lymphocytes # (auto) 0.46 K/uL (1.20-3.40); Lymphocytes % (auto) 3.4 %; Monocytes # (auto) 0.63 K/uL (0.11-0.59); Monocytes % (auto) 4.7 %; Neutrophils # (auto) 12.13 K/uL (1.40-6.50); Neutrophils % (auto) 90.1 %; Polychromasia 1+; Toxic Granulation 1+
[2023-09-09] MEDS: SODIUM CHLOR 7% 4 ML NEB NEB SCH ×2 (05:49→18:07)
[2023-09-09] MEDS: IPRATROPIUM BROMIDE NEB SOLN 0.02% 2.5 ML VIAL INH SCH ×4 (05:49→18:07)
[2023-09-09] MEDS: LEVALBUTEROL 1.25 MG/3 ML NEB NEB SCH ×4 (05:49→18:07)
[2023-09-09] MEDS: HEPARIN SODIUM/DEXTROSE 25,000 UNITS/500 ML BAG IV SCH (06:05)
[2023-09-09] MEDS: HYDROCORTISONE SOD 50 MG in SYRINGE 0 ML IV SCH ×3 (06:18→22:12)
--- NOTE | 2023-09-09 06:38 | Electroencephalogram ---
EEG Procedure Note Date of Service September 08, 2023 Start / End Times Start Time: 06:18 End Time: 06:38 Referring Physician Kimmy Lozoya History A 78 year old female with altered mental status. EEG performed for evaluation of epileptiform activtiy. Home Medication List Medication Instructions Recorded Confirmed Type duloxetine 30 mg capsule,delayed 60 mg PO QAM 07/20/18 09/05/23 History release folic acid 1 mg tablet 1 mg PO QAM 07/20/18 09/05/23 History prednisone 5 mg tablet 5 mg PO QAM 07/20/18 09/05/23 History albuterol sulfate 90 mcg/actuation 2 puff inhalation Q4 PRN Shortness 03/07/19 09/05/23 History aerosol inhaler (ProAir HFA) Of Breath cyanocobalamin (vitamin B-12) 2,000 mcg PO [id number] 03/07/19 09/05/23 History 1,000 mcg tablet (Vitamin B-12) vit A 300 mcg-C 200 mg-E 27 1 tab PO QAM 03/07/19 09/05/23 History mg-lutein 2 mg and minerals tablet (Ocuvite with Lutein) [id number] 8 mg-folic 400 1 tab PO QAM 11/12/19 09/05/23 History mcg-K 50 mcg-lutein 300 mcg tablet (Centrum Silver Women) montelukast 10 mg tablet 10 mg PO QAM 11/15/20 09/05/23 History latanoprost 0.005 % eye drops 1 drp OPB HS 01/03/21 09/05/23 History solifenacin 10 mg tablet (Vesicare) 10 mg PO QAM 08/22/21 09/05/23 History acetaminophen 325 mg tablet 325 mg PO DIRECTED PRN Pain 03/21/22 09/05/23 History fluticasone furoate 200 1 inh inhalation DAILY 03/21/22 09/05/23 History mcg-vilanterol 25 mcg/dose inhalation powder (Breo Ellipta) thiamine HCl (vitamin B1) 100 mg 50 mg PO DAILY 03/21/22 09/05/23 History tablet vancomycin 125 mg capsule 125 mg PO Q6H 03/21/22 09/05/23 History clopidogrel 75 mg tablet 75 mg PO QAM #30 tabs 04/01/22 09/05/23 Rx Lactobacillus rhamnosus GG 5 5 cell PO BID 08/06/22 09/05/23 History billion cell oral powder packet (Culturelle Kids Probiotics) albuterol sulfate 2.5 mg/3 mL 2.5 mg inhalation DIRECTED PRN 08/06/22 09/05/23 History (0.083 %) solution for nebulization Shortness Of Breath Or Wheezing cholecalciferol (vitamin D3) 50 50 mcg PO QAM 08/06/22 09/05/23 History mcg (2,000 unit) capsule (Vitamin D3) ferrous sulfate 325 mg (65 mg 325 mg PO QAM 08/06/22 09/05/23 History iron) tablet menthol 0.44 %-zinc oxide 20.6 % 1 applic topical BID PRN AFFECTED 08/06/22 09/05/23 History topical ointment (Calmoseptine) AREA pantoprazole 40 mg tablet,delayed 40 mg PO QAM 08/06/22 09/05/23 History release (Protonix) triamcinolone acetonide 0.1 % 1 applic topical BID PRN AFFECTED 08/06/22 09/05/23 History topical cream AREA hydroxychloroquine 200 mg tablet 200 mg PO HS 30 days #30 tabs 08/31/22 09/05/23 Rx metoprolol succinate 25 mg 25 mg PO DAILY 05/08/23 09/05/23 History tablet,extended release 24 hr rosuvastatin 10 mg tablet 20 mg PO HS 05/08/23 09/05/23 History amlodipine 5 mg tablet 5 mg PO QAM 09/05/23 09/05/23 History levalbuterol HCl 1.25 mg/3 mL 1.25 mg inhalation Q4H PRN 09/05/23 09/05/23 History solution for nebulization WHEEZING/SOB/COUGH Inpatient Medication List Moreno Syrup (Moerno Syrup 5 Ml Udp) 5 ml PO Q6 [facility] Stop: 09/16/23 01:44 Last Admin: 09/09/23 05:02 Dose: 5 ml Documented By: Admin: 09/08/23 23:33 Dose: 5 ml Documented By: Admin: 09/08/23 18:06 Dose: 5 ml Documented By: Admin: 09/08/23 12:31 Dose: 5 ml Documented By: Admin: 09/08/23 05:16 Dose: 5 ml Documented By: Admin: 09/07/23 23:06 Dose: 5 ml Documented By: Admin: 09/07/23 18:24 Dose: 5 ml Documented By: Admin: 09/07/23 11:58 Dose: 5 ml Documented By: Admin: 09/07/23 05:07 Dose: 5 ml Documented By: Admin: 09/07/23 00:16 Dose: 5 ml Documented By: Admin: 09/06/23 17:23 Dose: 5 ml Documented By: Admin: 09/06/23 12:34 Dose: 5 ml Documented By: Admin: 09/06/23 05:57 Dose: 5 ml Documented By: Admin: 09/06/23 02:34 Dose: 5 ml Documented By: HOLDEN Clopidogrel Bisulfate (Clopidogrel Bisulfate 75 Mg Tab) 75 mg PO QAM [facility] Stop: 10/06/23 08:59 Last Admin: 09/08/23 08:54 Dose: 75 mg Documented By: Admin: 09/07/23 09:08 Dose: 75 mg Documented By: Admin: 09/06/23 09:02 Dose: 75 mg Documented By: YESSENIA Duloxetine HCl (Duloxetine Hcl 60 Mg Cap) [facility] Stop: 10/06/23 08:59 Last Admin: 09/08/23 08:56 Dose: 60 mg Documented By: Admin: 09/07/23 09:06 Dose: 60 mg Documented By: Admin: 09/06/23 09:02 Dose: 60 mg Documented By: YESSENIA Ferrous Sulfate (Ferrous Sulfate 325 Mg Tab) 325 mg PO QAM [facility] Stop: 10/06/23 08:59 Last Admin: 09/08/23 08:55 Dose: 325 mg Documented By: Admin: 09/07/23 09:07 Dose: 325 mg Documented By: Admin: 09/06/23 09:03 Dose: 325 mg Documented By: YESSENIA Fluticasone/Vilanterol (Fluticasone/Vilanterol 200/25mcg 14 Puffs/Inhaler) 1 puffs INH DAILY [facility] Stop: 10/06/23 08:59 Last Admin: 09/08/23 08:57 Dose: 1 puffs Documented By: Admin: 09/07/23 09:09 Dose: 1 puffs Documented By: Admin: 09/06/23 09:05 Dose: 1 puffs Documented By: YESSENIA Folic Acid (Folic Acid 1 Mg Tab) 1 mg PO QAM [facility] Stop: 10/06/23 08:59 Last Admin: 09/08/23 08:57 Dose: 1 mg Documented By: Admin: 09/07/23 09:10 Dose: 1 mg Documented By: Admin: 09/06/23 09:02 Dose: 1 mg Documented By: YESSENIA Heparin Sodium/Dextrose (Heparin Sodium/Dextrose) 25,000 units in 500 mls @ 0 mls/hr IV .Q0M [facility]; Protocol Stop: 10/05/23 20:29 Last Admin: 09/09/23 06:05 Dose: 500 units/hr, 10 mls/hr Documented By: HOLDEN Co-signed By: [id number] Titration: 09/09/23 05:05 Dose: Infused Documented By: DM Co-signed By: GG Titration: 09/09/23 05:05 Dose: 0 units/hr, 0 mls/hr Documented By: DM Co-signed By: GG Admin: 09/08/23 05:29 Dose: 600 units/hr, 12 mls/hr Documented By: DM Co-signed By: AM Titration: 09/08/23 05:29 Dose: Infused Documented By: DM Co-signed By: AM Titration: 09/08/23 05:18 Dose: 600 units/hr, 12 mls/hr Documented By: DM Co-signed By: AM Titration: 09/07/23 18:52 Dose: 600 units/hr, 12 mls/hr Documented By: DM Co-signed By: CMP Titration: 09/07/23 09:12 Dose: 600 units/hr, 12 mls/hr Documented By: CMP Co-signed By: GPF Titration: 09/07/23 07:07 Dose: 600 units/hr, 12 mls/hr Documented By: GPF Co-signed By: HOLDEN Admin: 09/07/23 05:59 Dose: 600 units/hr, 12 mls/hr Documented By: DM Co-signed By: CR Titration: 09/07/23 05:59 Dose: Infused Documented By: DM Co-signed By: CR Titration: 09/06/23 18:54 Dose: 600 units/hr, 12 mls/hr Documented By: HOLDEN Co-signed By: YESSENIA Titration: 09/06/23 07:06 Dose: 600 units/hr, 12 mls/hr Documented By: YESSENIA Co-signed By: HOLDEN Titration: 09/06/23 03:42 Dose: 600 units/hr, 12 mls/hr Documented By: HOLDEN Co-signed By: SAIMA Admin: 09/05/23 20:49 Dose: 600 units/hr, 12 mls/hr Documented By: ACC Co-signed By: DOMI Thiamine HCl 250 mg/ Sodium (Chloride) 52.5 mls @ 210 mls/hr IV Q8H [facility] Stop: 10/07/23 13:59 Last Infusion: 09/09/23 05:18 Dose: Infused Documented By: Admin: 09/09/23 05:03 Dose: 210 mls/hr Documented By: Infusion: 09/08/23 22:14 Dose: Infused Documented By: Admin: 09/08/23 21:59 Dose: 210 mls/hr Documented By: Infusion: 09/08/23 17:01 Dose: Infused Documented By: Admin: 09/08/23 16:14 Dose: 210 mls/hr Documented By: Infusion: 09/08/23 05:31 Dose: Infused Documented By: Admin: 09/08/23 05:16 Dose: 210 mls/hr Documented By: Infusion: 09/07/23 21:59 Dose: Infused Documented By: Admin: 09/07/23 21:44 Dose: 210 mls/hr Documented By: Infusion: 09/07/23 14:54 Dose: Infused Documented By: Admin: 09/07/23 14:39 Dose: 210 mls/hr Documented By: BRITNEY Ertapenem 500 mg/ Syringe 5 mls @ 2 mls/min IV Q24H [facility] Stop: 09/10/23 08:59 Last Admin: 09/08/23 08:53 Dose: 2 mls/min Documented By: YESSENIA Hydrocortisone Sodium (Succinate 50 mg/ Syringe) 1 mls @ 4 mls/min IV Q8H [facility] Stop: 10/08/23 15:00 Last Admin: 09/09/23 06:18 Dose: 4 mls/min Documented By: Admin: 09/08/23 22:00 Dose: 4 mls/min Documented By: Admin: 09/08/23 16:23 Dose: 4 mls/min Documented By: MTG Insulin Aspart (Insulin Aspart Per Unit Charge) 0 units SC [facility]; Protocol Stop: 10/06/23 11:29 Last Admin: 09/08/23 21:19 Dose: Not Given Documented By: Admin: 09/08/23 17:37 Dose: Not Given Documented By: Admin: 09/08/23 12:32 Dose: Not Given Documented By: Admin: 09/08/23 08:50 Dose: Not Given Documented By: Admin: 09/07/23 20:38 Dose: Not Given Documented By: Admin: 09/07/23 17:00 Dose: 2 units Documented By: CMP Co-signed By: MTP Admin: 09/07/23 12:18 Dose: 2 units Documented By: CMP Co-signed By: LAF Admin: 09/07/23 09:11 Dose: Not Given Documented By: Admin: 09/06/23 20:39 Dose: 1 units Documented By: HOLDEN Co-signed By: CR Admin: 09/06/23 17:26 Dose: 2 units Documented By: YESSENIA Co-signed By: DTT Admin: 09/06/23 12:30 Dose: Not Given Documented By: YESSENIA Insulin Glargine (Lantus Per Unit Charge) 0 units SC [facility]; Protocol Stop: 10/08/23 20:59 Last Admin: 09/08/23 21:19 Dose: Not Given Documented By: DM Ipratropium Timnath (Ipratropium Timnath Neb Soln 0.02% 2.5 Ml Vial) 0.5 mg INH QIDR [facility] Stop: 10/06/23 06:59 Last Admin: 09/09/23 05:49 Dose: 0.5 mg Documented By: Admin: 09/08/23 19:15 Dose: 0.5 mg Documented By: Admin: 09/08/23 14:18 Dose: 0.5 mg Documented By: Admin: 09/08/23 11:08 Dose: 0.5 mg Documented By: Admin: 09/08/23 07:08 Dose: 0.5 mg Documented By: EAJules Admin: 09/07/23 19:47 Dose: 0.5 mg Documented By: Admin: 09/07/23 15:28 Dose: 0.5 mg Documented By: Admin: 09/07/23 11:52 Dose: 0.5 mg Documented By: Admin: 09/07/23 06:17 Dose: 0.5 mg Documented By: Admin: 09/06/23 17:56 Dose: 0.5 mg Documented By: Admin: 09/06/23 14:59 Dose: 0.5 mg Documented By: Admin: 09/06/23 11:39 Dose: 0.5 mg Documented By: Admin: 09/06/23 07:10 Dose: 0.5 mg Documented By: ROSALINDA Lactobacillus Acidophilus (Advanced Probiotic 1250 Mg Capsule) 2 cap PO BID [facility] Stop: 10/06/23 08:59 Last Admin: 09/08/23 21:20 Dose: 2 cap Documented By: Admin: 09/08/23 08:55 Dose: 2 cap Documented By: Admin: 09/07/23 20:37 Dose: 2 cap Documented By: Admin: 09/07/23 09:09 Dose: 2 cap Documented By: Admin: 09/06/23 20:40 Dose: Not Given Documented By: Admin: 09/06/23 09:03 Dose: 2 cap Documented By: YESSENIA Latanoprost (Latanoprost 0.005% Op Soln 2.5 Ml Btl) 1 drops OPB HS [facility] Stop: 10/06/23 20:59 Last Admin: 09/08/23 21:20 Dose: 1 drops Documented By: Admin: 09/07/23 20:37 Dose: 1 drops Documented By: Admin: 09/06/23 20:42 Dose: 1 drops Documented By: HOLDEN Levalbuterol HCl (Levalbuterol 1.25 Mg/3 Ml Neb) 1.25 mg NEB QIDR [facility] Stop: 10/06/23 06:59 Last Admin: 09/09/23 05:49 Dose: 1.25 mg Documented By: Admin: 09/08/23 19:15 Dose: 1.25 mg Documented By: Admin: 09/08/23 14:18 Dose: 1.25 mg Documented By: Admin: 09/08/23 11:08 Dose: 1.25 mg Documented By: Admin: 09/08/23 07:08 Dose: 1.25 mg Documented By: Admin: 09/07/23 19:47 Dose: 1.25 mg Documented By: Admin: 09/07/23 15:28 Dose: 1.25 mg Documented By: Admin: 09/07/23 11:52 Dose: 1.25 mg Documented By: Admin: 09/07/23 06:17 Dose: 1.25 mg Documented By: Admin: 09/06/23 17:56 Dose: 1.25 mg Documented By: Admin: 09/06/23 14:59 Dose: 1.25 mg Documented By: Admin: 09/06/23 11:38 Dose: 1.25 mg Documented By: Admin: 09/06/23 07:10 Dose: 1.25 mg Documented By: ROSALINDA Metoprolol Tartrate (Metoprolol Tartrate 25 Mg Tab) 25 mg PO TID [facility] Stop: 10/06/23 13:59 Last Admin: 09/08/23 21:20 Dose: 25 mg Documented By: Admin: 09/08/23 15:31 Dose: Not Given Documented By: Admin: 09/08/23 08:56 Dose: 25 mg Documented By: Admin: 09/07/23 20:37 Dose: 25 mg Documented By: Admin: 09/07/23 14:38 Dose: 25 mg Documented By: Admin: 09/07/23 09:08 Dose: 25 mg Documented By: Admin: 09/06/23 20:40 Dose: Not Given Documented By: Admin: 09/06/23 14:04 Dose: 25 mg Documented By: YESSENIA Metoprolol Tartrate (Metoprolol Tartrate 1 Mg/Ml Vial) 2.5 mg IV TID PRN PRN Reason: not able to take po Stop: 10/06/23 19:42 Last Admin: 09/06/23 21:20 Dose: 2.5 mg Documented By: HOLDEN Montelukast Sodium (Montelukast Sodium 10 Mg Tablet) 10 mg PO QAM [facility] Stop: 10/06/23 08:59 Last Admin: 09/08/23 08:55 Dose: 10 mg Documented By: Admin: 09/07/23 09:06 Dose: 10 mg Documented By: Admin: 09/06/23 09:03 Dose: 10 mg Documented By: YESSENIA Multivitamins/Minerals (Cerovite Adv Formula Tab) 1 tab PO [facility] Stop: 10/06/23 08:59 Last Admin: 09/08/23 08:57 Dose: 1 tab Documented By: Admin: 09/07/23 09:07 Dose: 1 tab Documented By: Admin: 09/06/23 09:05 Dose: 1 tab Documented By: YESSENIA Ondansetron HCl (Ondansetron Inj 2 Mg/Ml 2 Ml Vial) 4 mg IV Q6H PRN PRN Reason: Nausea Stop: 10/05/23 23:48 Last Admin: 09/06/23 15:18 Dose: 4 mg Documented By: YESSENIA Oxybutynin Chloride (Oxybutynin Chloride Xl 5 Mg Tabcr) 10 mg PO [facility] Stop: 10/06/23 08:59 Last Admin: 09/08/23 08:54 Dose: 10 mg Documented By: Admin: 09/07/23 09:08 Dose: 10 mg Documented By: Admin: 09/06/23 09:04 Dose: 10 mg Documented By: YESSENIA Pantoprazole Sodium (Pantoprazole 40 Mg Tab) 40 mg PO [facility] Stop: 10/06/23 08:59 Last Admin: 09/08/23 08:56 Dose: 40 mg Documented By: Admin: 09/07/23 09:07 Dose: 40 mg Documented By: Admin: 09/06/23 09:03 Dose: 40 mg Documented By: YESSENIA Rosuvastatin Calcium (Rosuvastatin Calcium 20 Mg Tab) 20 mg PO [facility] Stop: 10/06/23 20:59 Last Admin: 09/08/23 21:20 Dose: 20 mg Documented By: Admin: 09/07/23 20:37 Dose: 20 mg Documented By: Admin: 09/06/23 20:40 Dose: Not Given Documented By: HOLDEN Sodium Chloride (Sodium Chlor 7% 4 Ml Neb) 4 ml NEB BIDR [facility] Stop: 10/07/23 18:59 Last Admin: 09/09/23 05:49 Dose: 4 ml Documented By: KMHill Admin: 09/08/23 19:15 Dose: 4 ml Documented By: Admin: 09/08/23 07:08 Dose: 4 ml Documented By: Admin: 09/07/23 19:47 Dose: 4 ml Documented By: JEANNINE Vancomycin HCl (Vancomycin Hcl 125 Mg/2.5ml Soln) 125 mg PO Q6 [facility] Stop: 09/16/23 01:44 Last Admin: 09/09/23 05:02 Dose: 125 mg Documented By: Admin: 09/08/23 23:33 Dose: 125 mg Documented By: Admin: 09/08/23 18:07 Dose: 125 mg Documented By: Admin: 09/08/23 12:31 Dose: 125 mg Documented By: Admin: 09/08/23 05:16 Dose: 125 mg Documented By: Admin: 09/07/23 23:06 Dose: 125 mg Documented By: Admin: 09/07/23 18:23 Dose: 125 mg Documented By: Admin: 09/07/23 11:58 Dose: 125 mg Documented By: Admin: 09/07/23 05:07 Dose: 125 mg Documented By: Admin: 09/07/23 00:16 Dose: 125 mg Documented By: Admin: 09/06/23 17:26 Dose: 125 mg Documented By: Admin: 09/06/23 12:34 Dose: 125 mg Documented By: Admin: 09/06/23 05:58 Dose: 125 mg Documented By: Admin: 09/06/23 02:34 Dose: 125 mg Documented By: HOLDEN Vitamin D (Cholecalciferol 1,000 Units 25 Mcg Tab) 2,000 units PO QAM [facility] Stop: 10/06/23 08:59 Last Admin: 09/08/23 08:54 Dose: 2,000 units Documented By: Admin: 09/07/23 09:07 Dose: 2,000 units Documented By: Admin: 09/06/23 09:04 Dose: 2,000 units Documented By: YESSENIA Discontinued Medications Albuterol (Albut/Ipratrop 3mg/0.5mg Neb 3 Ml Vial) 6 ml NEB NOW STA; Protocol Stop: 09/05/23 19:03 Last Admin: 09/05/23 20:27 Dose: Not Given Documented By: ACC Furosemide (Furosemide 40 Mg/4 Ml Vial) 40 mg IV ONE ONE Stop: 09/06/23 15:34 Last Admin: 09/06/23 15:40 Dose: 40 mg Documented By: SURAJN Furosemide (Furosemide 40 Mg/4 Ml Vial) 40 mg IV ONE ONE Stop: 09/08/23 16:03 Last Admin: 09/08/23 16:25 Dose: 40 mg Documented By: MTG Heparin Sodium/Dextrose (Heparin Iv Adult Wt-Based Low-Dose *No* Initial Bolus Protocol) 1 each IV ONE STA; Protocol Stop: 09/05/23 20:16 Last Admin: 09/05/23 22:09 Dose: Not Given Documented By: ACC Hydrocortisone Sodium Succinate (Hydrocortisone Sod Succinate 100 Mg/2 Ml Vial) 50 mg IV NOW STA Stop: 09/05/23 19:17 Last Admin: 09/05/23 19:25 Dose: 50 mg Documented By: ACC Sodium Chloride (Nss) 1,000 mls @ 999 mls/hr IV .Q1H1M [facility] Stop: 09/05/23 20:15 Last Infusion: 09/05/23 20:52 Dose: Infused Documented By: Admin: 09/05/23 19:21 Dose: 999 mls/hr Documented By: ACC Cefepime HCl (Maxipime) 2,000 mg in 20 mls @ 5 mls/min IV NOW STA; Protocol Stop: 09/05/23 19:05 Last Admin: 09/05/23 19:25 Dose: 5 mls/min Documented By: ACC Sodium Chloride (Nss) 500 mls @ 999 mls/hr IV .Q31M ONE Stop: 09/05/23 20:45 Last Infusion: 09/05/23 21:32 Dose: Infused Documented By: Admin: 09/05/23 20:42 Dose: 999 mls/hr Documented By: ACC Sodium Chloride (Nss) 1,000 mls @ 125 mls/hr IV .Q8H [facility] Stop: 10/05/23 23:48 Last Infusion: 09/06/23 01:55 Dose: Infused Documented By: Admin: 09/05/23 23:51 Dose: 100 mls/hr Documented By: DM Vancomycin HCl 1,000 mg/ (Sodium Chloride) 270 mls @ 200 mls/hr IV NOW STA; Protocol Stop: 09/06/23 01:26 Last Infusion: 09/06/23 03:36 Dose: Infused Documented By: Admin: 09/06/23 01:32 Dose: 200 mls/hr Documented By: HOLDEN Acyclovir Sodium 550 mg/ (Dextrose) 111 mls @ 100 mls/hr IV Q12H [facility]; Protocol Stop: 09/16/23 00:00 Last Admin: 09/06/23 12:36 Dose: Not Given Documented By: Infusion: 09/06/23 01:30 Dose: Infused Documented By: Admin: 09/06/23 00:35 Dose: 100 mls/hr Documented By: HOLDEN Insulin Human Regular 4 units/ (Syringe) 4 mls @ 0 mls/min IV NOW STA Stop: 09/06/23 00:37 Last Admin: 09/06/23 00:40 Dose: Not Given Documented By: HOLDEN Cefepime HCl 1,000 mg/ Syringe 10 mls @ 5 mls/min IV Q12H [facility]; Protocol Stop: 09/16/23 05:59 Last Admin: 09/06/23 05:06 Dose: 5 mls/min Documented By: HOLDEN Insulin Human Regular 250 (units/ Sodium Chloride) 250 mls @ 3.4 mls/hr IV .Q24H [facility]; Protocol Stop: 09/06/23 11:30 Last Titration: 09/06/23 11:14 Dose: Infused Documented By: YESSENIA Co-signed By: BELEN Titration: 09/06/23 10:39 Dose: 2.7 units/hr, 2.7 mls/hr Documented By: YESSENIA Co-signed By: DTT Titration: 09/06/23 09:26 Dose: 3.4 units/hr, 3.4 mls/hr Documented By: YESSENIA Co-signed By: DTT Titration: 09/06/23 07:06 Dose: 4.2 units/hr, 4.2 mls/hr Documented By: YESSENIA Co-signed By: HOLDEN Titration: 09/06/23 06:30 Dose: 4.2 units/hr, 4.2 mls/hr Documented By: HOLDEN Co-signed By: [id number] Titration: 09/06/23 05:34 Dose: 4.2 units/hr, 4.2 mls/hr Documented By: HOLDEN Co-signed By: [id number] Titration: 09/06/23 04:34 Dose: 5.3 units/hr, 5.3 mls/hr Documented By: HOLDEN Co-signed By: [id number] Titration: 09/06/23 03:34 Dose: 6.6 units/hr, 6.6 mls/hr Documented By: HOLDEN Co-signed By: SAIMA Admin: 09/06/23 02:36 Dose: 5.5 units/hr, 5.5 mls/hr Documented By: HOLDEN Co-signed By: [id number] Sodium Chloride (Nss) 500 mls @ 500 mls/hr IV .Q1H [facility] Stop: 09/06/23 02:44 Last Infusion: 09/06/23 03:36 Dose: Infused Documented By: Admin: 09/06/23 01:53 Dose: 500 mls/hr Documented By: HOLDEN Potassium Chloride/Sodium Chloride (1/2 Nss + 20meq Kcl 1000ml) 20 meq in 1,000 mls @ 125 mls/hr IV .Q8H [facility] Stop: 10/06/23 01:59 Last Infusion: 09/06/23 05:46 Dose: Infused Documented By: Admin: 09/06/23 02:36 Dose: 125 mls/hr Documented By: HOLDEN Hydrocortisone Sodium (Succinate 50 mg/ Syringe) 1 mls @ 4 mls/min IV Q6H [facility] Stop: 10/06/23 03:59 Last Admin: 09/08/23 08:58 Dose: 4 mls/min Documented By: Admin: 09/08/23 03:11 Dose: 4 mls/min Documented By: Admin: 09/07/23 21:42 Dose: 4 mls/min Documented By: Admin: 09/07/23 16:34 Dose: 4 mls/min Documented By: Admin: 09/07/23 09:39 Dose: 4 mls/min Documented By: Admin: 09/07/23 03:00 Dose: 4 mls/min Documented By: Admin: 09/06/23 21:20 Dose: 4 mls/min Documented By: Admin: 09/06/23 15:23 Dose: 4 mls/min Documented By: Admin: 09/06/23 09:05 Dose: 4 mls/min Documented By: Admin: 09/06/23 03:36 Dose: 4 mls/min Documented By: DM Potassium Chloride/Dextrose/Sod Cl (D5w And 1/2nss + 20meq Kcl) 20 meq in 1,000 mls @ 125 mls/hr IV .Q8H [facility] Stop: 10/06/23 05:44 Last Infusion: 09/06/23 10:37 Dose: Infused Documented By: Admin: 09/06/23 05:51 Dose: 125 mls/hr Documented By: HOLDEN Vancomycin HCl 750 mg/ Sodium (Chloride) 265 mls @ 200 mls/hr IV Q24H [facility] Stop: 09/16/23 09:59 Last Infusion: 09/07/23 10:35 Dose: Infused Documented By: Admin: 09/07/23 09:15 Dose: 200 mls/hr Documented By: Infusion: 09/06/23 10:42 Dose: Infused Documented By: Admin: 09/06/23 09:19 Dose: 200 mls/hr Documented By: YESSENIA Potassium Chloride (K Matt / Wtr) 10 meq in 100 mls @ 100 mls/hr IV Q1H [facility] Stop: 09/06/23 11:44 Last Infusion: 09/06/23 15:34 Dose: Infused Documented By: Admin: 09/06/23 12:30 Dose: 50 mls/hr Documented By: Infusion: 09/06/23 12:30 Dose: Infused Documented By: Infusion: 09/06/23 10:38 Dose: 50 mls/hr Documented By: Admin: 09/06/23 10:34 Dose: 100 mls/hr Documented By: Infusion: 09/06/23 10:24 Dose: Infused Documented By: Admin: 09/06/23 09:24 Dose: 100 mls/hr Documented By: Infusion: 09/06/23 09:24 Dose: Infused Documented By: Admin: 09/06/23 09:19 Dose: 100 mls/hr Documented By: YESSENIA Ertapenem 1,000 mg/ Syringe 10 mls @ 2 mls/min IV Q24H [facility] Stop: 09/08/23 08:59 Last Admin: 09/07/23 09:16 Dose: 2 mls/min Documented By: Admin: 09/06/23 09:32 Dose: 2 mls/min Documented By: YESSENIA Potassium Chloride/Sodium Chloride (Normal Saline W/20 Meq Kcl) 20 meq in 1,000 mls @ 40 mls/hr IV .Q24H [facility]; Protocol Stop: 10/06/23 10:29 Last Infusion: 09/06/23 15:03 Dose: Infused Documented By: Admin: 09/06/23 10:34 Dose: 80 mls/hr Documented By: YESSENIA Insulin Aspart (Insulin Aspart Per Unit Charge) 0 units SC Q6 KARLA Stop: 10/06/23 01:29 Last Admin: 09/06/23 01:41 Dose: 8 units Documented By: HOLDEN Co-signed By: TRACY Insulin Aspart (Insulin Aspart Per Unit Charge) 0 units SC ACHS KARLA Stop: 10/06/23 07:29 Last Admin: 09/06/23 08:41 Dose: Not Given Documented By: YESSENIA Insulin Glargine (Lantus Per Unit Charge) 25 units SQ ONE ONE Stop: 09/06/23 08:31 Last Admin: 09/06/23 09:19 Dose: 25 units Documented By: YESSENIA Co-signed By: BELEN Insulin Glargine (Lantus Per Unit Charge) 0 units SQ HS ONE; Protocol Stop: 09/06/23 21:01 Last Admin: 09/06/23 20:39 Dose: Not Given Documented By: HOLDEN Insulin Glargine (Lantus Per Unit Charge) 15 units SC DAILY [facility]; Protocol Stop: 10/07/23 08:59 Last Admin: 09/07/23 09:14 Dose: 15 units Documented By: JOHNSON Co-signed By: MEHRDAD Levalbuterol HCl (Levalbuterol 1.25 Mg/3 Ml Neb) 1.25 mg NEB NOW STA Stop: 09/05/23 19:14 Last Admin: 09/05/23 19:32 Dose: 1.25 mg Documented By: JUDITH Metoprolol Succinate (Metoprolol Succ 25mg Ext Rel Tab) 25 mg PO DAILY KARLA Stop: 10/06/23 08:59 Last Admin: 09/06/23 09:02 Dose: 25 mg Documented By: YESSENIA Metoprolol Tartrate (Metoprolol Tartrate 1 Mg/Ml Vial) 5 mg IV NOW STA Stop: 09/08/23 01:04 Last Admin: 09/08/23 01:11 Dose: 5 mg Documented By: HOLDEN Miscellaneous (Pending D5 1/2ns+20meq Kcl Ivf) 1 each N/A Q2H KARLA Stop: 10/06/23 01:44 Last Admin: 09/06/23 05:52 Dose: Not Given Documented By: Admin: 09/06/23 05:52 Dose: Not Given Documented By: Admin: 09/06/23 05:51 Dose: 1 each Documented By: HOLDEN Non-Formulary Medication (Vancomycin) 125 mg PO Q6H KARLA Stop: 10/05/23 23:48 Last Admin: 09/06/23 00:10 Dose: Not Given Documented By: HOLDEN Thiamine HCl (Thiamine Hcl 50 Mg Tablet) 50 mg PO DAILY [facility] Stop: 10/06/23 08:59 Last Admin: 09/07/23 09:06 Dose: 50 mg Documented By: Admin: 09/06/23 09:05 Dose: 50 mg Documented By: YESSENIA Description This is a 21 electrode EEG with a single channel dedicated to limited EKG. The electrodes were placed in accordance with the International 10-20 system. REPORT: At the onset of the EEG the patient is awake. The background is disorganized but continuous. The background appears symmetric with loss of the normal anterior to posterior gradient consisting of polymorphic 5-7 theta activity with intermixed 2-3 Hz delta activity. NO stage II sleep transients are seen. Photic does not induce any abnormalities. Interpretation IMPRESSION: This is an abnormal routine EEG in a patinet with altered mentation due to moderate generalized background slowing suggestive of a non specific encephalopathy. No electrographic seizures or epileptiform activity is seen.
[2023-09-09] MEDS: CLOPIDOGREL BISULFATE 75 MG TAB PO SCH (08:18)
[2023-09-09] MEDS: ADVANCED PROBIOTIC 1250 MG CAPSULE PO SCH ×2 (08:18→22:03)
[2023-09-09] MEDS: MONTELUKAST SODIUM 10 MG TABLET PO SCH (08:19)
[2023-09-09] MEDS: OXYBUTYNIN CHLORIDE XL 5 MG TABCR PO SCH (08:19)
[2023-09-09] MEDS: DULoxetine HCL 60 MG CAP PO SCH (08:19)
[2023-09-09] MEDS: CHOLECALCIFEROL 1,000 UNITS 25 MCG TAB PO SCH (08:19)
[2023-09-09] MEDS: CEROVITE ADV FORMULA TAB PO SCH (08:19)
[2023-09-09] MEDS: FOLIC ACID 1 MG TAB PO SCH (08:20)
[2023-09-09] MEDS: PANTOprazole 40 MG TAB PO SCH (08:20)
[2023-09-09] MEDS: FERROUS SULFATE 325 MG TAB PO SCH (08:20)
[2023-09-09] MEDS: FLUTICASONE/VILANTEROL 200/25MCG 14 PUFFS/INHALER INH SCH (08:22)
[2023-09-09] MEDS: METOPROLOL TARTRATE 25 MG TAB PO SCH ×3 (08:23→22:02)
[2023-09-09] MEDS: INSULIN ASPART PER UNIT CHARGE SC SCH ×4 (08:43→21:56)
[2023-09-09] MEDS: ERTAPENEM SODIUM 500 MG in SYRINGE 0 ML IV SCH (08:46)
[2023-09-09] MEDS ORDERED: LANTUS PER UNIT CHARGE SC SCH (09:00)
--- NOTE | 2023-09-09 12:43 | Communication Note ---
Date of Service: September 09, 2023 Communicated directly with primary/hospitalist team Dr. Holm Reviewed MRI imaging revealing no evidence of acute intracranial hemorrhage. Appreciate mild areas of hemosiderin staining and evidence of significant cortical atrophy likely age related. CT brain without contrast performed 09/06/23 revealed no evidence of intracranial hemorrhage. She has remained on full anticoagulation and documentation review reveals improving mentation. Recommend follow up CT brain without contrast in AM Continue frequent neurological assessments and obtain stat CT brain without contrast for any acute neurological decline
[2023-09-09 12:58] LABS: ANTI-Xa, UFH(UnfractionatedHep 0.64 IU/ml (0.3-0.7)
--- NOTE | 2023-09-09 13:27 | Cardiology Progress Note ---
Date of Service September 09, 2023 Assessment & Plan (1) Sepsis: (2) Paroxysmal atrial fibrillation: (3) Acute heart failure with reduced ejection fraction and diastolic dysfunction: (4) Takotsubo cardiomyopathy: (5) NSTEMI (non-ST elevated myocardial infarction): (6) Acute renal failure: (7) Acute metabolic encephalopathy: Plan 77-year-old female mated with acute sepsis and encephalopathy. Paroxysmal atrial fibrillation with rapid ventricular response noted on admission with echocardiographic evidence of severe LV systolic dysfunction. Wall motion abnormality suggesting stress-induced (Takotsubo) cardiomyopathy. Possible pneumonia on CT. I suspect elevated troponin secondary to demand ischemia, DKA, and stress-induced cardiomyopathy rather than acute plaque rupture event. Broad-spectrum antibiotic therapy per internal medicine. Acute kidney injury noted, with presenting creatinine of 1.75 that has trended up to 2.1. Patient with positive fluid balance since admission, did receive a dose of furosemide 40 mg on 09/08/2021. Toprol-XL 25 mg daily discontinued in favor of metoprolol tartrate 25 mg 3 times daily 09/06/23. Continue intravenous heparin infusion. Hold amlodipine. Continue clopidogrel and rosuvastatin as ordered. Repeat resting 2D transthoracic echocardiogram 09/10/2023 for reassessment of LV function and wall motion. Admission and Anticipated Discharge Date Admission Date: September 05, 2023 Subjective Patient was seen in cardiology follow-up. at bedside. Per discussion with her and her nurse, she became a bit more alert overnight last night. She is aware that today is her birthday. She is still somewhat somnolent however. Review of telemetry reveals sinus rhythm in the 70s with right bundle branch block. Physical Exam Constitutional: well nourished and + ill appearing; no acute distress Respiratory: normal respiratory effort; no respiratory distress Auscultation: + diminished lung sounds (Bases bilateral); no rales, no rhonchi a nd no wheezes Cardiovascular: Rate/Rhythm: + tachycardic and + irregularly irregular Heart Sounds: normal S1, normal S2 and + murmur (1/6 systolic ejection murmur) Vessels: no JVD and no carotid bruit Extremities: no edema Gastrointestinal (Abdomen): Inspection/Auscultation: normal bowel sounds; abdomen not distended Percussion/Palpation: abdomen soft; abdomen nontender, no guarding and abdomen not rigid Neurologic: CN's II-XI intact bilaterally and moves all extremities Results & Data Vital Signs (Past 12 Hours) Vital Signs Temp Pulse Pulse Resp BP Pulse Ox O2 Del Method 09/09/23 11:41 36.3 C L 82 22 115/72 100 Nasal Cannula 09/09/23 10:09 93 H 09/09/23 09:48 78 20 99 Nasal Cannula 09/09/23 09:15 Nasal Cannula 09/09/23 07:44 36.3 C L 132 H 22 98/57 L 99 Nasal Cannula 09/09/23 05:50 94 H 22 100 Nasal Cannula 09/09/23 03:03 36.4 C L 93 H 22 114/70 100 Nasal Cannula O2 Flow Rate 09/09/23 11:41 3 09/09/23 10:09 09/09/23 09:48 3 09/09/23 09:15 4 09/09/23 07:44 3 09/09/23 05:50 3 09/09/23 03:03 3 Laboratory Results Cardiac Enzymes 09/09/23 Range/Units 04:04 AST 202 H (13-39) U/L CBC 09/09/23 Range/Units 04:04 WBC 13.47 H (4.8-10.8) K/ul RBC 3.37 L (4.20-5.40) M/uL Hgb 9.4 L (12.0-16.0) g/dl Hct 28.1 L (37.0-47.0) % Plt Count 185 (130-400) K/uL Neut # (Auto) 12.13 H (1.40-6.50) K/uL Lymph # (Auto) 0.46 L (1.20-3.40) K/uL [place] # (Auto) 0.63 H (0.11-0.59) K/uL Eos # (Auto) 0.00 (0.00-0.50) K/uL Baso # (Auto) 0.06 (0.00-0.20) K/uL Comprehensive Metabolic Panel 09/09/23 Range/Units 04:04 Sodium 130 L (136-145) mmol/L Potassium 4.4 (3.5-5.1) mmol/L Chloride 99 (98-107) mmol/L Carbon Dioxide 20 L (21-32) mmol/L BUN 55 H (6-23) mg/dl Creatinine 2.10 H D (0.6-1.2) mg/dl Glucose 133 H (70-99(Fasting)) mg/dl Calcium 8.6 (8.6-10.3) mg/dl AST 202 H (13-39) U/L ALT 87 H (7-52) U/L Alkaline Phosphatase 165 H (34-104) U/L Total Protein 5.7 L (6.0-8.3) gm/dl Albumin 2.9 L (3.4-5.0) gm/dl Intake and Output 09/08/23 09/09/23 09/09/23 22:59 06:59 14:59 Intake Total 155.0 / 490.7 335.7 / 490.7 11.333 / 11.333 Output Total 550 / 850 300 / 850 Balance -395.0 / -359.3 35.7 / -359.3 10.333 / 10.333 Intake: IV 105.0 / 440.7 335.7 / 440.7 11.333 / 11.333 Heparin Sodium/Dextrose 25,000 283.2 / 283.2 11.333 / 11.333 units In 500 ml @ 500 UNITS/HR 10 mls/hr IV .Q24H [facility] Rx#: [id number] Thiamine HCl 250 mg In Sodium 105.0 / 157.5 52.5 / 157.5 Chloride 0.9% 50 ml @ 210 mls/ hr IV Q8H [facility] Rx#:[id number] Oral 50 / 50 Output: Urine Amount (Catheter) 550 / 850 300 / 850 Colon/Indwelling 550 / 850 300 / 850 # Bowel Movements Other: Other Intake Source bits and sips SIPS Weight 57.5 kg Weight Measurement Method Built in [facility] (1) Sepsis Sepsis type: sepsis due to unspecified organism Sepsis acute organ dysfunction status: with acute organ dysfunction Severe sepsis acute organ dysfunction type: encephalopathy Severe sepsis shock status: without septic shock Qualified Code(s): A41.9 - Sepsis, unspecified organism; R65.20 - Severe sepsis without septic shock; G93.41 - Metabolic encephalopathy (6) Acute renal failure Acute renal failure type: unspecified Qualified Code(s): N17.9 - Acute kidney failure, unspecified
--- NOTE | 2023-09-09 14:18 | Hospitalist Progress Note ---
Date of Service September 09, 2023 Assessment & Plan (1) Sepsis: Plan: 75-year-old female with past med history significant for type 2 diabetes, CKD stage III, hyperlipidemia, chronic drug-induced interstitial lung disorders, asthma mild persistent, COPD, chronic right-sided heart failure, hypertension, history of CAD, history of CVA, mild aortic stenosis, paroxysmal atrial fibrillation, moderate protein calorie malnutrition, slow transit constipation, vitamin B-12 and thiamine deficiency, history of esophageal dysphagia, GERD, gout, osteoarthritis, primary open-angle glaucoma, polyneuropathy, rheumatoid arthritis involving multiple sites with positive rheumatoid factor, depression, history of C. difficile, history of COVID, history of fever of unknown origin, presents with fever and lethargy. Sepsis, POA Metabolic encephalopathy likely due to sepsis Patient presented with fever and lethargy for 2 days. Patient reports sore throat and hoarse voice Chest x-rayno acute finding. CT chest- infiltrate on right lung field; small bilateral pleural effusion CT abdomen and pelvisno acute finding CT headno acute finding Urine cultureno acute finding Blood cultureno growth Continue ertapenem Neurology consult- appreciate recs. -MRI brain without contrast: per neurology no acute concerns -EEG ordered and pending Can consider lumbar puncture if patient continues to be encephalopathic after she is off heparin drip. Takotsubo cardiomyopathy NSTEMI Paroxysmal atrial fibrillation EKG on admission with atrial fibrillation with diffuse ST depression. High sensitive troponin elevated to 1190; downtrending Echocardiogram showed EF of 20 to 25%; large wall motion abnormality with severe hypokinesis to dyskinesis of mid and apical left ventricular myocardial wall. Currently on IV heparin. Continue Toprol XL discontinued; switched over to metoprolol tartrate Continue on Plavix and statin. Plan to repeat echocardiogram in 2 to 3 days as per cardiology. Appreciate cardiology recs Possible DKA, resolved Sugars in 300s and has anion gap on admission Initially placed on insulin drip. Not on any medications at home. reports that her blood glucose has been around 110s to 120s most of the time but recently elevated to 200s Continue on subcu insulin. Pharmacy glycemic consult ANDRESSA on CKD stage III, likely prerenal due to sepsis vs cardiorenal Hyponatremia likely due to ANDRESSA Presented creatinine 1.7 Unable to give more fluids due to low EF. Patient is 4 L positive since admission. Nephrology consult- appreciate recs History of asthma History of COPD History of drug-induced interstitial lung disorders Continue home inhalers DuoNebs as needed Also on hypertonic saline. History of CAD Beta-rhoda with holding parameters Continue statin and Plavix History of paroxysmal atrial fibrillation On beta-rhoda On heparin drip Cardiology on board. History of CVA On statin and Plavix History of C. difficile Continue home p.o. vancomycin Will check stool for C. difficile History of esophageal dysphagia Speech consulted; restarting pured diet. hypertension Will hold amlodipine for sepsis Metoprolol with holding parameters rheumatoid arthritis Will hold Plaquenil On prednisone 5 mg daily which will be held Was placed on stress dose steroids IV hydrocortisone 50 mg every 6 hours. Will decrease the frequency to every 8 hours. Gradually wean back down to prednisone 5 mg once daily. History of vitamin B1 and B12 deficiency Continue supplements depression Continue duloxetine DVT prophylaxis: On IV heparin Admission and Anticipated Discharge Date Admission Date: September 05, 2023 Subjective Pt seen with at bedside. Trying to speak, but speech cannot be understood. Per , she is more awake than the day before. Review of Systems Review of Systems: Unobtainable due to cognitive status Physical Exam Physical Exam: General: Alert Skin: No noted rashes or bruises Psych:could not be determined Neuro: Alert HEENT: NC/AT Chest: Nontender to palpation. CV: RRR Resp: Breath sounds clear bilaterally, no increased effort of breathing. Abdomen: Soft, nontender Extremities: No edema in lower extremities bilaterally. Results & Data Results & Data Vital Signs (Past 12 Hours) Vital Signs Temp Pulse Pulse Resp BP Pulse Ox O2 Del Method 09/09/23 11:41 36.3 C L 82 22 115/72 100 Nasal Cannula 09/09/23 10:09 93 H 09/09/23 09:48 78 20 99 Nasal Cannula 09/09/23 09:15 Nasal Cannula 09/09/23 07:44 36.3 C L 132 H 22 98/57 L 99 Nasal Cannula 09/09/23 05:50 94 H 22 100 Nasal Cannula 09/09/23 03:03 36.4 C L 93 H 22 114/70 100 Nasal Cannula O2 Flow Rate 09/09/23 11:41 3 09/09/23 10:09 09/09/23 09:48 3 09/09/23 09:15 4 09/09/23 07:44 3 09/09/23 05:50 3 09/09/23 03:03 3 (1) Sepsis Sepsis acute organ dysfunction status: with acute organ dysfunction Sepsis type: sepsis due to unspecified organism Severe sepsis acute organ dysfunction type: encephalopathy Severe sepsis shock status: without septic shock Qualified Code(s): A41.9 - Sepsis, unspecified organism; R65.20 - Severe sepsis without septic shock; G93.41 - Metabolic encephalopathy
--- NOTE | 2023-09-09 15:35 | Nephrology Consultation ---
Date of Consultation September 09, 2023 Assessment & Plan (1) ANDRESSA (acute kidney injury): Patient with acute renal failure due to ischemic ATN in setting of sepsis and low EF. Patient with Takotsubo type cardiomyopathy with a EF of 20%. She is nonoliguric. She has made only 150 mL of urine today. Electrolytes are still stable except for mild hyponatremia. No indication for dialysis but patient is high risk for needing dialysis this admission. 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 They are waiting to discuss more about dialysis. -No need for IV fluids given tenuous respiratory status -Okay to give bolus of Lasix if worsening respiratory status although it appears to be mainly COPD -Daily BMP -Monitor input output (2) Hyponatremia: This is due to renal failure and CHF. Sodium was 130 today. Patient is not drinking much. Will continue to monitor daily sodium. History of Present Illness Reason for Consultation: Acute renal failure Requesting Physician: Malika Holm MD Attending Physician: Malika Holm MD History of Present Illness 75-year-old female with past med history significant for type 2 diabetes, CKD stage III baseline creatinine of 1.1, hyperlipidemia, chronic drug-induced interstitial lung disorders, asthma mild persistent, COPD, chronic right-sided heart failure, hypertension, history of CAD, history of CVA, mild aortic stenosis, paroxysmal atrial fibrillation who was admitted with fevers and being treated for sepsis with no clear source. She is on ertapenem. Her creatinine has been rising from an admission creatinine of 1.7-2.1 today. Urine output has also dropped off significantly from 500 overnight to just 150 mL today. Patient also found to have Takotsubo cardiomyopathy with a EF of 20 to 25%. Main complaint is shortness of breath. Patient is getting a nebulizer at the time of my visit. was at the bedside. 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 Allergies Allergy/AdvReac Type Severity Reaction Status Date / Time Influenza Virus Vaccines Allergy Severe FLOWN TO Verified 09/05/23 20:43 [facility]. ciprofloxacin Allergy Intermediate RASH/BLEEDI Verified 09/05/23 20:43 NG methotrexate Allergy Intermediate RASH/PNEUMO Verified 09/05/23 20:43 [facility] Penicillins Allergy Intermediate hives Verified 09/05/23 20:43 ranitidine Allergy Intermediate rash Verified 09/05/23 20:43 Home Medications Medication Instructions Recorded Confirmed Type duloxetine 30 mg capsule,delayed 60 mg PO QAM 07/20/18 09/05/23 History release folic acid 1 mg tablet 1 mg PO QAM 07/20/18 09/05/23 History prednisone 5 mg tablet 5 mg PO QAM 07/20/18 09/05/23 History albuterol sulfate 90 mcg/actuation 2 puff inhalation Q4 PRN Shortness 03/07/19 09/05/23 History aerosol inhaler (ProAir HFA) Of Breath cyanocobalamin (vitamin B-12) 2,000 mcg PO [id number] 03/07/19 09/05/23 History 1,000 mcg tablet (Vitamin B-12) vit A 300 mcg-C 200 mg-E 27 1 tab PO QAM 03/07/19 09/05/23 History mg-lutein 2 mg and minerals tablet (Ocuvite with Lutein) [id number] 8 mg-folic 400 1 tab PO QAM 11/12/19 09/05/23 History mcg-K 50 mcg-lutein 300 mcg tablet (Centrum Silver Women) montelukast 10 mg tablet 10 mg PO QAM 11/15/20 09/05/23 History latanoprost 0.005 % eye drops 1 drp OPB HS 01/03/21 09/05/23 History solifenacin 10 mg tablet (Vesicare) 10 mg PO QAM 08/22/21 09/05/23 History acetaminophen 325 mg tablet 325 mg PO DIRECTED PRN Pain 03/21/22 09/05/23 History fluticasone furoate 200 1 inh inhalation DAILY 03/21/22 09/05/23 History mcg-vilanterol 25 mcg/dose inhalation powder (Breo Ellipta) thiamine HCl (vitamin B1) 100 mg 50 mg PO DAILY 03/21/22 09/05/23 History tablet vancomycin 125 mg capsule 125 mg PO Q6H 03/21/22 09/05/23 History clopidogrel 75 mg tablet 75 mg PO QAM #30 tabs 04/01/22 09/05/23 Rx Lactobacillus rhamnosus GG 5 5 cell PO BID 08/06/22 09/05/23 History billion cell oral powder packet (Culturee Kids Probiotics) albuterol sulfate 2.5 mg/3 mL 2.5 mg inhalation DIRECTED PRN 08/06/22 09/05/23 History (0.083 %) solution for nebulization Shortness Of Breath Or Wheezing cholecalciferol (vitamin D3) 50 50 mcg PO QAM 08/06/22 09/05/23 History mcg (2,000 unit) capsule (Vitamin D3) ferrous sulfate 325 mg (65 mg 325 mg PO QAM 08/06/22 09/05/23 History iron) tablet menthol 0.44 %-zinc oxide 20.6 % 1 applic topical BID PRN AFFECTED 08/06/22 09/05/23 History topical ointment (Calmoseptine) AREA pantoprazole 40 mg tablet,delayed 40 mg PO QAM 08/06/22 09/05/23 History release (Protonix) triamcinolone acetonide 0.1 % 1 applic topical BID PRN AFFECTED 08/06/22 09/05/23 History topical cream AREA hydroxychloroquine 200 mg tablet 200 mg PO HS 30 days #30 tabs 08/31/22 09/05/23 Rx metoprolol succinate 25 mg 25 mg PO DAILY 05/08/23 09/05/23 History tablet,extended release 24 hr rosuvastatin 10 mg tablet 20 mg PO HS 05/08/23 09/05/23 History amlodipine 5 mg tablet 5 mg PO QAM 09/05/23 09/05/23 History levalbuterol HCl 1.25 mg/3 mL 1.25 mg inhalation Q4H PRN 09/05/23 09/05/23 History solution for nebulization WHEEZING/SOB/COUGH Patient History Medical History Wrist fracture, left History of stroke Thrush, oral Hyponatremia Nontraumatic rectus hematoma NSTEMI (non-ST elevated myocardial infarction) UTI (urinary tract infection) Immunosuppressed status DVT prophylaxis CKD (chronic kidney disease), stage III Acute hyponatremia Abnormal ECG Elevated troponin Syncope NSTEMI (non-ST elevated myocardial infarction) Visual hallucinations Hyponatremia RSV infection Recurrent Clostridium difficile diarrhea Chronic steroid use prednisone daily Gout H/O interstitial lung disease "drug induced- methotrexate " Osteoarthritis Glaucoma Peripheral neuropathy Dyslipidemia Rheumatoid arthritis "on chronic steroids" COPD (chronic obstructive pulmonary disease) inhalers prn Depression CKD (chronic kidney disease), stage III Gastroparesis DM type 2 (diabetes mellitus, type 2) GERD (gastroesophageal reflux disease) Migraines DJD of right shoulder NSTEMI (non-ST elevated myocardial infarction) (08/06/13) Asthma inhalers prn HTN (hypertension) Heart disease Surgical History History of tooth extraction all top teeth History of esophagogastroduodenoscopy (EGD) H/O cardiac catheterization "cath 07/2013- single vessel CAD involving apical segment LAD, medical management indicated" S/P total knee arthroplasty "left knee" History of hysterectomy H/O colonoscopy S/P rotator cuff repair "right shoulder" S/P removal of ovarian cyst Family History Father Family history of diabetes mellitus Mother Heart disease Hypertension Other No family history of adverse response to anesthesia Social History Smoking Status: Never smoker Second Hand Exposure: No; Do You Dip or Chew Tobacco: No; Tobacco Cessation Education Requested by Patient: No Hx Alcohol Use: No Hx Substance Use: No Preferred Language: Venezuelan Communication Ability: Effective Shop Estimator Required: No Beliefs That Will Affect Care: None marital status: Current Living Situation: Spouse current occupational status: retired current occupation: Former [employer] Other Information That Helps Us Care for You: No Feels Safe at Home: Yes Safety Concerns: Feels Safe At This Time Assistive Devices: Bedside Commode, Scooter/Electric Scooter, Walker and Wheelchair Assistive Devices Comment: Pt. currently on BiPAP and O2, not while at home Review of Systems 2 Review of Systems: All other systems were reviewed and negative except as noted in HPI Physical Exam 2 Physical Exam: General exam: Appears comfortable, no acute distress HEENT: Pupils are equal and reactive to light Neck: No JVD, neck is supple trachea is midline Respiratory system: wheezing bilaterally. Gastrointestinal: Abdomen is soft, non distended, non tender, bowel sounds are present CVS: Regular rate and rhythm. No murmurs, rubs or gallops Musculoskeletal: No joint or muscle tenderness Extremities: Non tender, no edema, peripheral pulses are present Neuro: Oriented, no tremors, no focal neurological deficits Skin: No rashes Results & Data Vital Signs (Past 12 Hours) Vital Signs Temp Pulse Pulse Resp BP Pulse Ox O2 Del Method 09/09/23 15:22 93 H 09/09/23 14:43 82 17 97 Nasal Cannula 09/09/23 11:41 36.3 C L 82 22 115/72 100 Nasal Cannula 09/09/23 10:09 93 H 09/09/23 09:48 78 20 99 Nasal Cannula 09/09/23 09:15 Nasal Cannula 09/09/23 07:44 36.3 C L 132 H 22 98/57 L 99 Nasal Cannula 09/09/23 05:50 94 H 22 100 Nasal Cannula O2 Flow Rate 09/09/23 15:22 09/09/23 14:43 2.5 09/09/23 11:41 3 09/09/23 10:09 09/09/23 09:48 3 09/09/23 09:15 4 09/09/23 07:44 3 09/09/23 05:50 3 Laboratory Results 09/09/23 04:04 09/09/23 04:04 WBC 13.47 H RBC 3.37 L MCV 83.4 MCH 27.9 MCHC 33.5 RDW Std Deviation 52.3 H RDW Coeff of Xochitl 17.6 H Plt Count 185 MPV 9.2 L Phosphorus 3.9 Albumin 2.9 L
[2023-09-09] MEDS: ROSUVASTATIN CALCIUM 20 MG TAB PO SCH (22:02)
[2023-09-09] MEDS: LATANOPROST 0.005% OP SOLN 2.5 ML BTL OPB SCH (22:03)
[2023-09-10] MEDS ORDERED: MoRPHine SULFATE 2 MG/ML CARP IV STA (03:47)
[2023-09-10] MEDS: THIAMINE HCL 250 MG in SODIUM CHLORIDE 0.9% 50 ML IV SCH ×3 (05:17→21:13)
[2023-09-10] MEDS: CHERRY SYRUP 5 ML UDP PO SCH ×4 (05:17→23:29)
[2023-09-10] MEDS: VANCOMYCIN HCL 125 MG/2.5ML SOLN PO SCH ×4 (05:17→23:29)
[2023-09-10] MEDS: HEPARIN SODIUM/DEXTROSE 25,000 UNITS/500 ML BAG IV SCH (05:17)
[2023-09-10] MEDS: HYDROCORTISONE SOD 50 MG in SYRINGE 0 ML IV SCH ×3 (06:11→22:47)
[2023-09-10] MEDS: IPRATROPIUM BROMIDE NEB SOLN 0.02% 2.5 ML VIAL INH SCH ×4 (07:23→19:56)
[2023-09-10] MEDS: LEVALBUTEROL 1.25 MG/3 ML NEB NEB SCH ×4 (07:23→19:56)
[2023-09-10] MEDS: SODIUM CHLOR 7% 4 ML NEB NEB SCH ×2 (07:23→19:56)
[2023-09-10] MEDS: OXYBUTYNIN CHLORIDE XL 5 MG TABCR PO SCH (09:04)
[2023-09-10] MEDS: FERROUS SULFATE 325 MG TAB PO SCH (09:04)
[2023-09-10] MEDS: PANTOprazole 40 MG TAB PO SCH (09:04)
[2023-09-10] MEDS: DULoxetine HCL 60 MG CAP PO SCH (09:04)
[2023-09-10] MEDS: FOLIC ACID 1 MG TAB PO SCH (09:04)
[2023-09-10] MEDS: ADVANCED PROBIOTIC 1250 MG CAPSULE PO SCH ×2 (09:04→20:52)
[2023-09-10] MEDS: CEROVITE ADV FORMULA TAB PO SCH (09:04)
[2023-09-10] MEDS: METOPROLOL TARTRATE 25 MG TAB PO SCH ×3 (09:04→20:52)
[2023-09-10] MEDS: CHOLECALCIFEROL 1,000 UNITS 25 MCG TAB PO SCH (09:04)
[2023-09-10] MEDS: CLOPIDOGREL BISULFATE 75 MG TAB PO SCH (09:04)
[2023-09-10] MEDS: MONTELUKAST SODIUM 10 MG TABLET PO SCH (09:05)
[2023-09-10] MEDS: FLUTICASONE/VILANTEROL 200/25MCG 14 PUFFS/INHALER INH SCH (09:05)
[2023-09-10] MEDS: INSULIN ASPART PER UNIT CHARGE SC SCH ×4 (09:07→20:50)
[2023-09-10] MEDS: LANTUS PER UNIT CHARGE SC SCH (09:08)
--- NOTE | 2023-09-10 09:49 | Pharmacy Report ---
Pharmacy Glycemic Short Note 2 - Date of Service September 10, 2023 - Glycemic Short BSG Results (Last 24 hours): 09/09/23 09/09/23 09/09/23 11:57 16:57 20:06 POC Glucose 124 H 118 H 134 H 09/10/23 07:46 POC Glucose 148 H OUTPATIENT ANTIDIABETIC REGIMEN: * None HbA1c: 6.3% (09/06/23) ASSESSMENT: 09/10/23: * BSGs remain well-controlled with very little insulin, ranging 118-146 mg/dL yesterday * Received 6 units of insulin (5 units of basal and 1 units of correctional bolus) * Fasting BSG of 148 mg/dL this morning, will increase basal today * Do not anticipate any other changes to glycemic regimen at this time 09/08/23: * BSGs well-controlled yesterday, ranging 89-125 mg/dL * Received 19 units of insulin (4 units of bolus and 15 units of basal) * Antibiotics de-escalated to ertapenem monotherapy * Remains on hydrocortisone 50 mg IV q6h and heparin infusion (mixed in dextrose) * Basal dose decreased yesterday and fasting BSG continues to trend down to 104 mg/dL * Will reduce basal insulin today 09/06/23: * 77 year old F receiving vancomycin/ertapenem/acyclovir for treatment of sepsis, meningitis r/o. Lumbar puncture planned for today. Cardio consult, continuing with gentle hydration. Fluids D51/2NS + KCl - changed to NS +KCl. On Heparin drip. * Hyperglycemic, on hydrocortisone IV Q6H, A1c 6.9% on 05/09/23, updated A1c pending * Patient started on insulin drip/DKA protocol, running at 4.2units/hr this morning, AG closed, euglycemic, OK to transition to SQ insulin. * Overlap drip x 2.5hrs with basal, NovoLog for correction and carb coverage when diet resumed. NPO at this time. PLAN FOR INPATIENT GLYCEMIC CONTROL: * Basal insulin * Lantus 7 units SC daily * Bolus insulin * NovoLog per scale ACHS or Q6hrs while NPO * Goal Range: Low 110 mg/dL - High 140 mg/dL * Correction Factor: 30 mg/dL/unit * Nutritional / Prandial insulin per carb ratio of 1 unit per 10 grams CHO consumed
--- NOTE | 2023-09-10 12:02 | Nephrology Progress Note ---
Date of Service September 10, 2023 Assessment & Plan (1) ANDRESSA (acute kidney injury): Plan: Patient with acute renal failure due to ischemic ATN in setting of sepsis and low EF. Patient with Takotsubo type cardiomyopathy with a EF of 20%. She is nonoliguric. She has made only 150 mL of urine today. Electrolytes are still stable except for mild hyponatremia. No indication for dialysis but patient is high risk for needing dialysis this admission. -Okay for maintenance fluids -Okay to give bolus of Lasix if worsening respiratory status although it appears to be mainly COPD -Daily BMP -Monitor input output (2) Hyponatremia: Plan: This is due to renal failure and CHF. Sodium was 130 yesterday. labs pending today. Patient is not drinking much. Will continue to monitor daily sodium. Admission and Anticipated Discharge Date Admission Date: September 05, 2023 Subjective Seen for acute kidney injury. She feels better today. Breathing is improved. She made about 150 mL of urine yesterday Review of Systems 2 Review of Systems: All other systems were reviewed and negative except as noted in HPI Physical Exam 2 Physical Exam: General exam: Appears comfortable, no acute distress HEENT: Pupils are equal and reactive to light Neck: No JVD, neck is supple trachea is midline Respiratory system: wheezing bilaterally. Gastrointestinal: Abdomen is soft, non distended, non tender, bowel sounds are present CVS: Regular rate and rhythm. No murmurs, rubs or gallops Musculoskeletal: No joint or muscle tenderness Extremities: Non tender, no edema, peripheral pulses are present Neuro: Oriented, no tremors, no focal neurological deficits Skin: No rashes Results & Data Vital Signs (Past 12 Hours) Vital Signs Temp Pulse Pulse Resp BP Pulse Ox O2 Del Method 09/10/23 10:48 75 18 99 Nasal Cannula 09/10/23 07:59 36.3 C L 74 17 117/64 100 Nasal Cannula 09/10/23 07:30 81 09/10/23 07:30 Nasal Cannula 09/10/23 07:23 95 H 18 98 Nasal Cannula 09/10/23 03:18 36.7 C 83 18 102/71 100 Nasal Cannula O2 Flow Rate 09/10/23 10:48 3 09/10/23 07:59 2 09/10/23 07:30 09/10/23 07:30 2 09/10/23 07:23 2 09/10/23 03:18 2 Laboratory Results 09/09/23 04:04
[2023-09-10 12:57] LABS: BUN Creatinine Ratio 27.9 (10-20); Calcium 8.6 mg/dl (8.6-10.3); Creatinine Clr Calc Pharmacy 17.1 ml/min; Est GFR (African American) 24.2 ml/min; Est GFR (Non-African American) 20.8 ml/min; Potassium 4.5 mmol/L (3.5-5.1)
--- NOTE | 2023-09-10 14:45 | Hospitalist Progress Note ---
Date of Service September 10, 2023 Assessment & Plan (1) Sepsis: Plan: 75-year-old female with past med history significant for type 2 diabetes, CKD stage III, hyperlipidemia, chronic drug-induced interstitial lung disorders, asthma mild persistent, COPD, chronic right-sided heart failure, hypertension, history of CAD, history of CVA, mild aortic stenosis, paroxysmal atrial fibrillation, moderate protein calorie malnutrition, slow transit constipation, vitamin B-12 and thiamine deficiency, history of esophageal dysphagia, GERD, gout, osteoarthritis, primary open-angle glaucoma, polyneuropathy, rheumatoid arthritis involving multiple sites with positive rheumatoid factor, depression, history of C. difficile, history of COVID, history of fever of unknown origin, presents with fever and lethargy. Sepsis, POA Metabolic encephalopathy likely due to sepsis Patient presented with fever and lethargy for 2 days. Patient reports sore throat and hoarse voice WBC trended up, currently on downtrend (pt on steroids as well) Chest x-rayno acute finding. CT chest- infiltrate on right lung field; small bilateral pleural effusion CT abdomen and pelvisno acute finding CT headno acute finding Urine cultureno acute finding Blood cultureno growth to date Continue ertapenem Neurology consult- appreciate recs. -MRI brain without contrast: per neurology no acute concerns -EEG suggestive of encephalopathy Can consider lumbar puncture if patient continues to be encephalopathic after she is off heparin drip. Takotsubo cardiomyopathy NSTEMI Paroxysmal atrial fibrillation EKG on admission with atrial fibrillation with diffuse ST depression. High sensitive troponin elevated to 1190; downtrended Echocardiogram 09/06 showed EF of 20 to 25%; large wall motion abnormality with severe hypokinesis to dyskinesis of mid and apical left ventricular myocardial wall. Repeat echo 09/10 showed improved EF of 35-40% Currently on IV heparin. Continue Toprol XL discontinued; switched over to metoprolol tartrate Continue on Plavix and statin. Plan to repeat echocardiogram in 2 to 3 days as per cardiology. Appreciate cardiology recs Possible DKA, resolved Sugars in 300s and has anion gap on admission Initially placed on insulin drip. Not on any medications at home. reports that her blood glucose has been around 110s to 120s most of the time but recently elevated to 200s Continue on subcu insulin. Pharmacy glycemic consult ANDRESSA on CKD stage III, likely prerenal due to sepsis vs cardiorenal Hyponatremia likely due to ANDRESSA Presented with creatinine 1.7 Creatinine elevated to 2 With improved EF, started on very gentle IVF. Per recs of cardiology and nephrology Nephrology consult- appreciate recs History of asthma History of COPD History of drug-induced interstitial lung disorders Continue home inhalers DuoNebs as needed Also on hypertonic saline. History of CAD Beta-rhoda with holding parameters Continue statin and Plavix History of paroxysmal atrial fibrillation On beta-rhoda On heparin drip Cardiology on board. History of CVA On statin and Plavix History of C. difficile C diff gene negative at this time Previously started on po vancomycin by ID Continue home p.o. vancomycin at this time Will contact ID to ensure ok to dc vanc given pt's history History of esophageal dysphagia Speech consulted; restarting pured diet. hypertension Will hold amlodipine for sepsis Metoprolol with holding parameters rheumatoid arthritis Will hold Plaquenil On prednisone 5 mg daily which will be held Was placed on stress dose steroids IV hydrocortisone 50 mg every 6 hours. Will decrease the frequency to every 8 hours. Gradually wean back down to prednisone 5 mg once daily. History of vitamin B1 and B12 deficiency Continue supplements depression Continue duloxetine DVT prophylaxis: On IV heparin Diet: DMII, pureed, nutrition consult placed. Admission and Anticipated Discharge Date Admission Date: September 05, 2023 Subjective Seen with at [facility]. He notes continued improvement. Pt more aware of surroundings. Still trying to be more verbal, very soft spoken. Review of Systems Review of Systems: All systems reviewed & are unremarkable except as noted in Subjective Physical Exam Physical Exam: General: Alert Skin: No noted rashes or bruises Psych:could not be determined Neuro: Alert HEENT: NC/AT Chest: Nontender to palpation. CV: RRR Resp: Breath sounds clear bilaterally, no increased effort of breathing. Abdomen: Soft, nontender Extremities: No edema in lower extremities bilaterally. Results & Data Results & Data Vital Signs (Past 12 Hours) Vital Signs Temp Pulse Pulse Resp BP Pulse Ox O2 Del Method 09/10/23 11:58 36.4 C L 68 18 117/68 92 Nasal Cannula 09/10/23 10:48 75 18 99 Nasal Cannula 09/10/23 07:59 36.3 C L 74 17 117/64 100 Nasal Cannula 09/10/23 07:30 81 09/10/23 07:30 Nasal Cannula 09/10/23 07:23 95 H 18 98 Nasal Cannula 09/10/23 03:18 36.7 C 83 18 102/71 100 Nasal Cannula O2 Flow Rate 09/10/23 11:58 2 09/10/23 10:48 3 09/10/23 07:59 2 09/10/23 07:30 09/10/23 07:30 2 09/10/23 07:23 2 09/10/23 03:18 2 (1) Sepsis Sepsis acute organ dysfunction status: with acute organ dysfunction Sepsis type: sepsis due to unspecified organism Severe sepsis acute organ dysfunction type: encephalopathy Severe sepsis shock status: without septic shock Qualifie d Code(s): A41.9 - Sepsis, unspecified organism; R65.20 - Severe sepsis without septic shock; G93.41 - Metabolic encephalopathy
--- NOTE | 2023-09-10 16:25 | Cardiology Progress Note ---
Date of Service September 10, 2023 Assessment & Plan (1) Sepsis: (2) Paroxysmal atrial fibrillation: (3) Acute heart failure with reduced ejection fraction and diastolic dysfunction: (4) Takotsubo cardiomyopathy: (5) NSTEMI (non-ST elevated myocardial infarction): (6) Acute renal failure: (7) Acute metabolic encephalopathy: Plan 78-year-old female admitted with acute sepsis and encephalopathy, paroxysmal atrial fibrillation with RVR, and echocardiographic evidence of severe LV systolic dysfunction most consistent with stress-induced (Takotsubo) cardiomyopathy. Follow-up TTE this AM revealed improvement in LVEF, now 35-40%. Examination notable for thrush with patient appearing intravascular volume depleted. Sepsis as per Hospitalist Thrush as per Hospitalist Consider cautious IV fluid resuscitation Continue metoprolol tartrate 25 mg TID for now. Continue intravenous heparin infusion (PAF indication). Continue clopidogrel (CVA indication, also with small vessel coronary atherosclerosis) Continue rosuvastatin (LDL goal less than 70 mg/dL) Hold amlodipine. Admission and Anticipated Discharge Date Admission Date: September 05, 2023 Supervising Physician Co-Signing Physician Notes Patient seen examined the bedside. More alert today. Denies chest pain or shortness of breath at rest. Telemetry will sinus rhythm in the 70-80s. PE: VSS. GEN: NAD, chronically ill. Heart: Regular rhythm, normal S1-S2. Lungs: Diminished breath sounds at the bases bilateral. Scattered rhonchi. Extremities: No edema. A/P: Agree with above PA-C history, physical exam, assessment and plan. Patient appearing clinically dry today. Agree with cautious hydration. Continue metoprolol tartrate, intravenous heparin, clopidogrel and rosuvastatin as ordered. Continue to hold amlodipine. Monitor telemetry. Subjective Patient seen and examined. Chart, medications, and telemetry reviewed. Follow-up TTE this AM with improvement in LVEF, now 35-40%, pattern most consistent with stress induced cardiomyopathy Telemetry: Sinus with atrial ectopy. No chest pain. No palpitations. No worsening dyspnea. No orthopnea or PND. Review of Systems Review of Systems: Full ROS not/unable to be obtained Physical Exam Physical Exam: General: NAD. Mouth: + Thrush. HENT: Normocephalic. Atraumatic. Eyes: PER. Conjunctiva pink, sclera clear. Neck: Neck veins are flat. Heart: RRR, 80 bpm. + Systolic murmur. No rub. Lungs: Diminished. Clear. No wheeze. Abdomen: +BS. Soft. Nontender. No masses or organomegaly. Colon catheter in place. Extremities: No clubbing, cyanosis, or edema. Limited neurological examination is without focal deficits. Pulses: radial=2/4, posterior tibial=2/4. Results & Data Vital Signs (Past 12 Hours) Vital Signs Temp Pulse Pulse Resp BP Pulse Ox O2 Del Method 09/10/23 15:56 36.3 C L 71 18 119/69 100 Nasal Cannula 09/10/23 14:54 82 18 97 Nasal Cannula 09/10/23 11:58 36.4 C L 68 18 117/68 92 Nasal Cannula 09/10/23 10:48 75 18 99 Nasal Cannula 09/10/23 07:59 36.3 C L 74 17 117/64 100 Nasal Cannula 09/10/23 07:30 81 09/10/23 07:30 Nasal Cannula 09/10/23 07:23 95 H 18 98 Nasal Cannula O2 Flow Rate 09/10/23 15:56 2 09/10/23 14:54 2 09/10/23 11:58 2 09/10/23 10:48 3 09/10/23 07:59 2 09/10/23 07:30 09/10/23 07:30 2 09/10/23 07:23 2 Laboratory Results Comprehensive Metabolic Panel 09/10/23 Range/Units 05:38 Sodium 132 L (136-145) mmol/L Potassium 4.5 (3.5-5.1) mmol/L Chloride 100 (98-107) mmol/L Carbon Dioxide 23 (21-32) mmol/L BUN 62 H (6-23) mg/dl Creatinine 2.22 H (0.6-1.2) mg/dl Glucose 117 H (70-99(Fasting)) mg/dl Calcium 8.6 (8.6-10.3) mg/dl Intake and Output 09/10/23 09/10/23 09/10/23 06:59 14:59 22:59 Intake Total 229.166 / 605.833 52.5 / 52.5 Output Total 150 / 451 200 / 200 Balance 79.166 / 154.833 -147.5 / -147.5 Intake: IV 169.166 / 405.833 52.5 / 52.5 Heparin Sodium/Dextrose 25,000 116.666 / 248.333 units In 500 ml @ 500 UNITS/HR 10 mls/hr IV .Q24H [facility] Rx#: [id number] Thiamine HCl 250 mg In Sodium 52.5 / 157.5 52.5 / 52.5 Chloride 0.9% 50 ml @ 210 mls/ hr IV Q8H [facility] Rx#:[id number] Oral 60 / 200 Output: Urine Amount (Catheter) 150 / 450 200 / 200 Colon/Indwelling 150 / 450 200 / 200 Other: Other Intake Source sips and bites Weight 57.6 kg Weight Measurement Method Built in [facility] (1) Sepsis Sepsis acute organ dysfunction status: with acute organ dysfunction Sepsis type: sepsis due to unspecified organism Severe sepsis acute organ dysfunction type: encephalopathy Severe sepsis shock status: without septic shock Qualified Code(s): A41.9 - Sepsis, unspecified organism; R65.20 - Severe sepsis without septic shock; G93.41 - Metabolic encephalopathy (6) Acute renal failure Acute renal failure type: unspecified Qualified Code(s): N17.9 - Acute kidney failure, unspecified
[2023-09-10] MEDS: NYSTATIN SUSP 500,000 U/5 ML UDC PO SCH ×2 (17:38→20:52)
[2023-09-10] MEDS: SODIUM CHLORIDE 0.9% 1,000 ML IV SCH (20:50)
[2023-09-10] MEDS: LATANOPROST 0.005% OP SOLN 2.5 ML BTL OPB SCH (20:52)
[2023-09-10] MEDS: ROSUVASTATIN CALCIUM 20 MG TAB PO SCH (20:52)
[2023-09-11] MEDS: HEPARIN SODIUM/DEXTROSE 25,000 UNITS/500 ML BAG IV SCH ×2 (05:05→21:11)
[2023-09-11] MEDS: VANCOMYCIN HCL 125 MG/2.5ML SOLN PO SCH ×2 (05:05→12:52)
[2023-09-11] MEDS: THIAMINE HCL 250 MG in SODIUM CHLORIDE 0.9% 50 ML IV SCH ×3 (05:05→21:14)
[2023-09-11] MEDS: CHERRY SYRUP 5 ML UDP PO SCH ×2 (05:18→12:53)
[2023-09-11] MEDS: HYDROCORTISONE SOD 50 MG in SYRINGE 0 ML IV SCH ×3 (05:53→23:45)
[2023-09-11 06:31] LABS: Basophils # (auto) 0.05 K/uL (0.00-0.20); Basophils % (auto) 0.4 %; Hematocrit (blood only) 26.8 % (37.0-47.0); Hemoglobin 8.9 g/dl (12.0-16.0); Immature Granulocytes % (auto) 2.9 %; Lymphocytes # (auto) 0.36 K/uL (1.20-3.40); Lymphocytes % (auto) 2.6 %; Mean Corpuscular Hemoglobin 28.3 pg (25.0-34.0); Mean Corpuscular Hgb Conc 33.2 g/dL (32.0-36.0); Mean Corpuscular Volume 85.1 fL (80.0-100.0); Mean Platelet Volume 8.6 fL (9.4-12.4); Monocytes # (auto) 0.62 K/uL (0.11-0.59); Monocytes % (auto) 4.4 %; Neutrophils # (auto) 12.54 K/uL (1.40-6.50); Neutrophils % (auto) 89.7 %; Platelet Count 193 K/uL (130-400); RDW Coefficient of Variation 18.6 % (11.5-14.5); RDW Standard Deviation 53.9 fL (36.4-46.3); Red Blood Count 3.15 M/uL (4.20-5.40); White Blood Count 13.97 K/ul (4.8-10.8)
[2023-09-11 06:50] LABS: Albumin Level 2.7 gm/dl (3.4-5.0); BUN Creatinine Ratio 32.6 (10-20); Bilirubin,Total 0.4 mg/dl (0.2-1.0); Calcium 8.6 mg/dl (8.6-10.3); Creatinine Clr Calc Pharmacy 21.4 ml/min; Est GFR (African American) 28.6 ml/min; Est GFR (Non-African American) 24.7 ml/min; Globulin 2.6 gm/dl (2.5-4.0); Magnesium 2.2 mg/dl (1.7-2.4); Phosphorus 4.2 mg/dl (2.5-4.9); Potassium 4.5 mmol/L (3.5-5.1); Total Protein 5.3 gm/dl (6.0-8.3)
[2023-09-11 06:52] LABS: ANTI-Xa, UFH(UnfractionatedHep 0.54 IU/ml (0.3-0.7)
[2023-09-11] MEDS: IPRATROPIUM BROMIDE NEB SOLN 0.02% 2.5 ML VIAL INH SCH ×4 (07:36→19:05)
[2023-09-11] MEDS: INSULIN ASPART PER UNIT CHARGE SC SCH ×4 (07:36→21:10)
[2023-09-11] MEDS: LEVALBUTEROL 1.25 MG/3 ML NEB NEB SCH ×4 (07:36→19:05)
[2023-09-11] MEDS: SODIUM CHLOR 7% 4 ML NEB NEB SCH ×2 (07:36→19:05)
[2023-09-11] MEDS: SODIUM CHLORIDE 0.9% 1,000 ML IV SCH (08:48)
[2023-09-11] MEDS: METOPROLOL TARTRATE 25 MG TAB PO SCH ×3 (08:49→21:13)
[2023-09-11] MEDS: NYSTATIN SUSP 500,000 U/5 ML UDC PO SCH ×4 (08:49→21:12)
[2023-09-11] MEDS: CLOPIDOGREL BISULFATE 75 MG TAB PO SCH (08:50)
[2023-09-11] MEDS: OXYBUTYNIN CHLORIDE XL 5 MG TABCR PO SCH (08:50)
[2023-09-11] MEDS: ADVANCED PROBIOTIC 1250 MG CAPSULE PO SCH ×2 (08:50→21:12)
[2023-09-11] MEDS: MONTELUKAST SODIUM 10 MG TABLET PO SCH (08:50)
[2023-09-11] MEDS: CHOLECALCIFEROL 1,000 UNITS 25 MCG TAB PO SCH (08:50)
[2023-09-11] MEDS: FOLIC ACID 1 MG TAB PO SCH (08:51)
[2023-09-11] MEDS: DULoxetine HCL 60 MG CAP PO SCH (08:51)
[2023-09-11] MEDS: FERROUS SULFATE 325 MG TAB PO SCH (08:51)
[2023-09-11] MEDS: CEROVITE ADV FORMULA TAB PO SCH (08:51)
[2023-09-11] MEDS: FLUTICASONE/VILANTEROL 200/25MCG 14 PUFFS/INHALER INH SCH (08:51)
[2023-09-11] MEDS: PANTOprazole 40 MG TAB PO SCH (08:51)
[2023-09-11] MEDS: LANTUS PER UNIT CHARGE SC SCH (10:11)
--- NOTE | 2023-09-11 11:54 | Infectious Disease Consult ---
Date of Service September 11, 2023 Telehealth Information I performed this visit using a real-time telehealth connection between my location and the patients location ([facility]). After connecting through interactive tele-video, patient was identified by name and date of and/or wristband check.Patient (or authorized healthcare food service representative) was informed that this was a telemedicine visit and it was being conducted confidentially over secure lines. My office door was closed and no one else was present in the room with me.Patient (or authorized healthcare food service representative) provided consent to proceed with the visit, expressed an understanding of privacy and security of the telemedicine visit, and gave permission to have a hospital food service representative in the room in order to assist with the visit and to conduct portions of the visit, as needed. I informed the patient (or authorized healthcare food service representative) that I reviewed their record and presented the opportunity for them to ask any questions regarding the visit today. The patient agreed to participate. Assessment & Plan (1) Altered mental status: (2) History of stroke: (3) Fever: Plan Patient is not experiencing diarrhea and her C Diff PCR is negative recommend discontinuing oral vancomycin .Thank you for allowing us to participate in the care of this patient ID will sign off History of Present Illness History of Present Illness 78 y/o F PMHx type 2 diabetes, CKD stage III, hyperlipidemia, chronic drug- induced interstitial lung disorders, asthma mild persistent, COPD, chronic right-sided heart failure, hypertension, history of CAD, history of CVA, mild aortic stenosis, paroxysmal atrial fibrillation, moderate protein calorie malnutrition, slow transit constipation, vitamin B-12 and thiamine deficiency, history of esophageal dysphagia, GERD, gout, osteoarthritis, primary open-angle glaucoma, polyneuropathy, rheumatoid arthritis involving multiple sites with positive rheumatoid factor, depression, history of C. difficile, history of COVID, history of fever of unknown origin, presents with fever and lethargy. states since she had a stroke and C. difficile infection she gets fever on and off and seems confused at that time but it resolves but this time she is having fever for last 2 days and been lethargic and was not getting better and when he checked her pulse ox heart rate was in 150s at one point of time today afternoon which prompted him to bring her to hospital. Patient is on p.o. vancomycin 125 mg every 6 hours for several months as per .Her C. Diff test was negative in July 14 2023.From July 10 2023 she continued to have fevers once a month with associated confusion and generalized weakness and persists for 7 to 10 days before resolving.He reports when she stops vancomycin her diarrhea gets worse and there is is a plan for working on prior authorization for VOWST oral capsules. Her C Diff test is negative from 09/08/23 and she is currently having 1 watery stool a day Allergies Allergy/AdvReac Type Severity Reaction Status Date / Time Influenza Virus Vaccines Allergy Severe FLOWN TO Verified 09/05/23 20:43 [facility]. ciprofloxacin Allergy Intermediate RASH/BLEEDI Verified 09/05/23 20:43 NG methotrexate Allergy Intermediate RASH/PNEUMO Verified 09/05/23 20:43 [facility] Penicillins Allergy Intermediate hives Verified 09/05/23 20:43 ranitidine Allergy Intermediate rash Verified 09/05/23 20:43 Home Medications Medication Instructions Recorded Confirmed Type duloxetine 30 mg capsule,delayed 60 mg PO QAM 07/20/18 09/05/23 History release folic acid 1 mg tablet 1 mg PO QAM 07/20/18 09/05/23 History prednisone 5 mg tablet 5 mg PO QAM 07/20/18 09/05/23 History albuterol sulfate 90 mcg/actuation 2 puff inhalation Q4 PRN Shortness 03/07/19 09/05/23 History aerosol inhaler (ProAir HFA) Of Breath cyanocobalamin (vitamin B-12) 2,000 mcg PO [id number] 03/07/19 09/05/23 History 1,000 mcg tablet (Vitamin B-12) vit A 300 mcg-C 200 mg-E 27 1 tab PO QAM 03/07/19 09/05/23 History mg-lutein 2 mg and minerals tablet (Ocuvite with Lutein) [id number] 8 mg-folic 400 1 tab PO QAM 11/12/19 09/05/23 History mcg-K 50 mcg-lutein 300 mcg tablet (Centrum Silver Women) montelukast 10 mg tablet 10 mg PO QAM 11/15/20 09/05/23 History latanoprost 0.005 % eye drops 1 drp OPB HS 01/03/21 09/05/23 History solifenacin 10 mg tablet (Vesicare) 10 mg PO QAM 08/22/21 09/05/23 History acetaminophen 325 mg tablet 325 mg PO DIRECTED PRN Pain 03/21/22 09/05/23 History fluticasone furoate 200 1 inh inhalation DAILY 03/21/22 09/05/23 History mcg-vilanterol 25 mcg/dose inhalation powder (Breo Ellipta) thiamine HCl (vitamin B1) 100 mg 50 mg PO DAILY 03/21/22 09/05/23 History tablet vancomycin 125 mg capsule 125 mg PO Q6H 03/21/22 09/05/23 History clopidogrel 75 mg tablet 75 mg PO QAM #30 tabs 04/01/22 09/05/23 Rx Lactobacillus rhamnosus GG 5 5 cell PO BID 08/06/22 09/05/23 History billion cell oral powder packet ([employer]) albuterol sulfate 2.5 mg/3 mL 2.5 mg inhalation DIRECTED PRN 08/06/22 09/05/23 History (0.083 %) solution for nebulization Shortness Of Breath Or Wheezing cholecalciferol (vitamin D3) 50 50 mcg PO QAM 08/06/22 09/05/23 History mcg (2,000 unit) capsule (Vitamin D3) ferrous sulfate 325 mg (65 mg 325 mg PO QAM 08/06/22 09/05/23 History iron) tablet menthol 0.44 %-zinc oxide 20.6 % 1 applic topical BID PRN AFFECTED 08/06/22 09/05/23 History topical ointment (Calmoseptine) AREA pantoprazole 40 mg tablet,delayed 40 mg PO QAM 08/06/22 09/05/23 History release (Protonix) triamcinolone acetonide 0.1 % 1 applic topical BID PRN AFFECTED 08/06/22 09/05/23 History topical cream AREA hydroxychloroquine 200 mg tablet 200 mg PO HS 30 days #30 tabs 08/31/22 09/05/23 Rx metoprolol succinate 25 mg 25 mg PO DAILY 05/08/23 09/05/23 History tablet,extended release 24 hr rosuvastatin 10 mg tablet 20 mg PO HS 05/08/23 09/05/23 History amlodipine 5 mg tablet 5 mg PO QAM 09/05/23 09/05/23 History levalbuterol HCl 1.25 mg/3 mL 1.25 mg inhalation Q4H PRN 09/05/23 09/05/23 History solution for nebulization WHEEZING/SOB/COUGH Patient History Medical History Wrist fracture, left History of stroke Thrush, oral Hyponatremia Nontraumatic rectus hematoma NSTEMI (non-ST elevated myocardial infarction) UTI (urinary tract infection) Immunosuppressed status DVT prophylaxis CKD (chronic kidney disease), stage III Acute hyponatremia Abnormal ECG Elevated troponin Syncope NSTEMI (non-ST elevated myocardial infarction) Visual hallucinations Hyponatremia RSV infection Recurrent Clostridium difficile diarrhea Chronic steroid use prednisone daily Gout H/O interstitial lung disease "drug induced- methotrexate " Osteoarthritis Glaucoma Peripheral neuropathy Dyslipidemia Rheumatoid arthritis "on chronic steroids" COPD (chronic obstructive pulmonary disease) inhalers prn Depression CKD (chronic kidney disease), stage III Gastroparesis DM type 2 (diabetes mellitus, type 2) GERD (gastroesophageal reflux disease) Migraines DJD of right shoulder NSTEMI (non-ST elevated myocardial infarction) (08/06/13) Asthma inhalers prn HTN (hypertension) Heart disease Surgical History History of tooth extraction all top teeth History of esophagogastroduodenoscopy (EGD) H/O cardiac catheterization "cath 07/2013- single vessel CAD involving apical segment LAD, medical management indicated" S/P total knee arthroplasty "left knee" History of hysterectomy H/O colonoscopy S/P rotator cuff repair "right shoulder" S/P removal of ovarian cyst Family History Father Family history of diabetes mellitus Mother Heart disease Hypertension Other No family history of adverse response to anesthesia Social History Smoking Status: Never smoker Second Hand Exposure: No; Do You Dip or Chew Tobacco: No; Tobacco Cessation Education Requested by Patient: No Hx Alcohol Use: No Hx Substance Use: No Preferred Language: Polish Communication Ability: Effective 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 currently on BiPAP and O2, not while at home Review of Systems Patient reports watery stools and weakness Physical Exam Patient in no respiratory distress afebrile awake alert responds to commands Results & Data Vital Signs (Past 12 Hours) Vital Signs Temp Pulse Pulse Resp BP Pulse Ox O2 Del Method 09/11/23 11:38 71 09/11/23 10:56 68 18 100 Nasal Cannula 09/11/23 08:31 Room Air 09/11/23 07:38 72 18 97 Nasal Cannula 09/11/23 07:33 36.8 C 74 18 131/68 98 Room Air 09/11/23 03:20 36.9 C 82 20 115/72 92 Room Air 09/11/23 00:20 Room Air 09/11/23 00:18 71 O2 Flow Rate 09/11/23 11:38 09/11/23 10:56 2 09/11/23 08:31 09/11/23 07:38 2 09/11/23 07:33 09/11/23 03:20 09/11/23 00:20 09/11/23 00:18 Laboratory Results WBC 13.970 Diagnostic Findings No acute or focal abnormalities are noted of the unenhanced liver, spleen or pancreas. The gallbladder has been removed. There is no hydronephrosis or perinephric fluid. No evidence of bowel obstruction. No abnormal fluid or regional inflammatory reaction. IMPRESSION: No acute findings. (1) Altered mental status Altered mental status type: disorientation Qualified Code(s): R41.0 - Disorientation, unspecified (3) Fever Fever type: due to other condition Qualified Code(s): R50.81 - Fever presenting with conditions classified elsewhere
--- NOTE | 2023-09-11 12:03 | Nephrology Progress Note ---
Date of Service September 11, 2023 Assessment & Plan (1) ANDRESSA (acute kidney injury): Plan: Patient with acute renal failure due to ischemic ATN in setting of sepsis and low EF. Patient with Takotsubo type cardiomyopathy with a EF of 20%. She is nonoliguric. She has made 600 mL of urine today. Creatinine down to 1.9 from 2.2 yesterday electrolytes are still stable except for mild hyponatremia. No indication for dialysis. -Okay for maintenance fluids -Okay to give bolus of Lasix if worsening respiratory status although it appears to be mainly COPD -Daily BMP -Monitor input output (2) Hyponatremia: Plan: This is due to renal failure and CHF. Sodium was 135 today. Patient is not drinking much. Will continue to monitor daily sodium. Admission and Anticipated Discharge Date Admission Date: September 05, 2023 Subjective Seen for ANDRESSA. She feels better today. No shortness of breath. Urine output has increased to 600 in the past 24 hours. Review of Systems 2 Review of Systems: All other systems were reviewed and negative except as noted in HPI Physical Exam 2 Physical Exam: General exam: Appears comfortable, no acute distress HEENT: Pupils are equal and reactive to light Neck: No JVD, neck is supple trachea is midline Respiratory system: wheezing bilaterally. Gastrointestinal: Abdomen is soft, non distended, non tender, bowel sounds are present CVS: Regular rate and rhythm. No murmurs, rubs or gallops Musculoskeletal: No joint or muscle tenderness Extremities: Non tender, no edema, peripheral pulses are present Neuro: Oriented, no tremors, no focal neurological deficits Skin: No rashes Results & Data Vital Signs (Past 12 Hours) Vital Signs Temp Pulse Pulse Resp BP Pulse Ox O2 Del Method 09/11/23 11:38 71 09/11/23 10:56 68 18 100 Nasal Cannula 09/11/23 08:31 Room Air 09/11/23 07:38 72 18 97 Nasal Cannula 09/11/23 07:33 36.8 C 74 18 131/68 98 Room Air 09/11/23 03:20 36.9 C 82 20 115/72 92 Room Air 09/11/23 00:20 Room Air 09/11/23 00:18 71 O2 Flow Rate 09/11/23 11:38 09/11/23 10:56 2 09/11/23 08:31 09/11/23 07:38 2 09/11/23 07:33 09/11/23 03:20 09/11/23 00:20 09/11/23 00:18 Laboratory Results 09/11/23 06:18 09/11/23 06:18 WBC 13.97 H RBC 3.15 L MCV 85.1 MCH 28.3 MCHC 33.2 RDW Std Deviation 53.9 H RDW Coeff of Xochitl 18.6 H Plt Count 193 MPV 8.6 L Phosphorus 4.2 Albumin 2.7 L
--- NOTE | 2023-09-11 12:28 | Ultrasound Report ---
ABDOMINAL ULTRASOUND, RIGHT UPPER QUADRANT HISTORY: elevated liver enzymes. COMPARISON: CT abdomen and pelvis 09/06/2023. FINDINGS: Pancreas: The pancreas is obscured by bowel gas. Liver: Increased echogenicity with heterogeneous appearance of the parenchyma. Possible hypodense les ion of the right hepatic lobe, 4.9 x 4.4 x 4.8 cm. Gallbladder: Cholecystectomy. CBD: 0.5 cm. Patent portal vein. Right kidney: Absent Right pleural effusion. IMPRESSION: 1. The hepatic parenchyma is heterogeneous and mildly echogenic. There is an ill-defined 4.9 cm mass noted within the right hepatic lobe likely correlating with the 2 cm lesion described on the 08/13/20 22 study. Findings could be further evaluated with tissue sampling. 2. Cholecystectomy. ACT 112: Positive. There are findings on this exam that require communication between the performing entity and the patient following Patient Test Result Information Act ([place] Act 112) guidelines. Electronically signed by: Brant Mccoy M.D. 09/11/2023 12:26 PM
--- NOTE | 2023-09-11 14:16 | Cardiology Progress Note ---
Date of Service September 11, 2023 Assessment & Plan (1) Sepsis: (2) Paroxysmal atrial fibrillation: (3) Takotsubo cardiomyopathy: (4) NSTEMI (non-ST elevated myocardial infarction): (5) Acute renal failure: (6) Acute metabolic encephalopathy: Plan 78-year-old female admitted with acute sepsis and encephalopathy, paroxysmal atrial fibrillation with RVR, and echocardiographic evidence of severe LV systolic dysfunction most consistent with stress-induced (Takotsubo) cardio myopathy. Follow-up TTE 09/10/23 revealed improvement in LVEF, now 35-40%. Continue metoprolol tartrate 25 mg 3 times daily and IV heparin. Candidacy for long-term anticoagulation to be determined. Patient currently sinus rhythm with PACs. Reassess LV systolic function and 2 to 3 days. Continue clopidogrel and rosuvastatin as ordered. Amlodipine remains on hold due to intermittent borderline, hypotension. Admission and Anticipated Discharge Date Admission Date: September 05, 2023 Subjective Patient seen and examined at the bedside. Receiving nebulizer treatment. More alert today. Subjectively, shortness of breath improved. Cough unchanged. present at bedside. Telemetry reveals sinus rhythm with PACs, heart rate 60-70s. Receiving gentle IV hydration. Fluid balance +1.1 L overnight. Review of Systems Review of Systems: All systems reviewed & are unremarkable except as noted in Subjective Physical Exam Constitutional: well nourished and + ill appearing; no acute distress Respiratory: normal respiratory effort; no respiratory distress A uscultation: + diminished lung sounds (Bases bilateral); no rales, no rhonchi and no wheezes Cardiovascular: Rate/Rhythm: + tachycardic and + irregularly irregular Heart Sounds: normal S1, normal S2 and + murmur (1/6 systolic ejection murmur) Vessels: no JVD and no carotid bruit Extremities: no edema Gastrointestinal (Abdomen): Inspection/Auscultation: normal bowel sounds; abdomen not distended Percussion/Palpation: abdomen soft; abdomen nontender, no guarding and abdomen not rigid Neurologic: CN's II-XI intact bilaterally and moves all extremities Results & Data Vital Signs (Past 12 Hours) Vital Signs Temp Pulse Pulse Resp BP Pulse Ox O2 Del Method 09/11/23 12:09 36.5 C 76 19 127/65 100 Nasal Cannula 09/11/23 11:38 71 09/11/23 10:56 68 18 100 Nasal Cannula 09/11/23 08:31 Room Air 09/11/23 07:38 72 18 97 Nasal Cannula 09/11/23 07:33 36.8 C 74 18 131/68 98 Room Air 09/11/23 03:20 36.9 C 82 20 115/72 92 Room Air O2 Flow Rate 09/11/23 12:09 2 09/11/23 11:38 09/11/23 10:56 2 09/11/23 08:31 09/11/23 07:38 2 09/11/23 07:33 09/11/23 03:20 Laboratory Results Cardiac Enzymes 09/11/23 Range/Units 06:18 AST 235 H (13-39) U/L CBC 09/11/23 Range/Units 06:18 WBC 13.97 H (4.8-10.8) K/ul RBC 3.15 L (4.20-5.40) M/uL Hgb 8.9 L (12.0-16.0) g/dl Hct 26.8 L (37.0-47.0) % Plt Count 193 (130-400) K/uL Neut # (Auto) 12.54 H (1.40-6.50) K/uL Lymph # (Auto) 0.36 L (1.20-3.40) K/uL Wilcox # (Auto) 0.62 H (0.11-0.59) K/uL Eos # (Auto) 0.00 (0.00-0.50) K/uL Baso # (Auto) 0.05 (0.00-0.20) K/uL Comprehensive Metabolic Panel 09/11/23 Range/Units 06:18 Sodium 135 L (136-145) mmol/L Potassium 4.5 (3.5-5.1) mmol/L Chloride 105 (98-107) mmol/L Carbon Dioxide 22 (21-32) mmol/L BUN 63 H (6-23) mg/dl Creatinine 1.93 H (0.6-1.2) mg/dl Glucose 118 H (70-99(Fasting)) mg/dl Calcium 8.6 (8.6-10.3) mg/dl AST 235 H (13-39) U/L ALT 108 H (7-52) U/L Alkaline Phosphatase 156 H (34-104) U/L Total Protein 5.3 L (6.0-8.3) gm/dl Albumin 2.7 L (3.4-5.0) gm/dl Intake and Output 09/10/23 09/11/23 09/11/23 22:59 06:59 14:59 Intake Total 252.5 / 579.166 274.166 / 579.166 974.5 / 974.5 Output Total 400 / 600 Balance 252.5 / -20.834 -125.834 / -20.834 974.5 / 974.5 Intake: IV 52.5 / 379.166 274.166 / 379.166 974.5 / 974.5 Heparin Sodium/Dextrose 25,000 221.666 / 221.666 24.5 / 24.5 units In 500 ml @ 500 UNITS/HR 10 mls/hr IV .Q24H KARLA Rx#: [id number] Sodium Chloride 0.9% 1,000 ml @ 897.5 / 897.5 75 mls/hr IV .[id number] KARLA Rx#: [id number] Thiamine HCl 250 mg In Sodium 52.5 / 157.5 52.5 / 157.5 52.5 / 52.5 Chloride 0.9% 50 ml @ 210 mls/ hr IV Q8H KARLA Rx#:[id number] Oral 200 / 200 Output: Urine Amount (Catheter) 400 / 600 Colon/Indwelling 400 / 600 Other: Weight 61.5 kg Weight Measurement Method Built in [facility] (1) Sepsis Sepsis acute organ dysfunction status: with acute organ dysfunction Sepsis type: sepsis due to unspecified organism Severe sepsis acute organ dysfunction type: encephalopathy Severe sepsis shock status: without septic shock Qualified Code(s): A41.9 - Sepsis, unspecified organism; R65.20 - Severe sepsis without septic shock; G93.41 - Metabolic encephalopathy (5) Acute renal failure Acute renal failure type: unspecified Qualified Code(s): N17.9 - Acute kidney failure, unspecified
--- NOTE | 2023-09-11 14:28 | Hospitalist Progress Note ---
Date of Service September 11, 2023 Assessment & Plan (1) Sepsis: Plan: 75-year-old female with past med history significant for type 2 diabetes, CKD stage III, hyperlipidemia, chronic drug-induced interstitial lung disorders, asthma mild persistent, COPD, chronic right-sided heart failure, hypertension, history of CAD, history of CVA, mild aortic stenosis, paroxysmal atrial fibrillation, moderate protein calorie malnutrition, slow transit constipation, vitamin B-12 and thiamine deficiency, history of esophageal dysphagia, GERD, gout, osteoarthritis, primary open-angle glaucoma, polyneuropathy, rheumatoid arthritis involving multiple sites with positive rheumatoid factor, depression, history of C. difficile, history of COVID, history of fever of unknown origin, presents with fever and lethargy. Sepsis, POA Metabolic encephalopathy likely due to sepsis Patient presented with fever and lethargy for 2 days. Patient reports sore throat and hoarse voice WBC trended up, currently on downtrend (pt on steroids as well) Chest x-rayno acute finding. CT chest- infiltrate on right lung field; small bilateral pleural effusion CT abdomen and pelvisno acute finding CT headno acute finding Urine cultureno acute finding Blood cultureno growth to date Continue ertapenem Neurology consult- appreciate recs. -MRI brain without contrast: per neurology no acute concerns -EEG suggestive of encephalopathy Can consider lumbar puncture if patient continues to be encephalopathic after she is off heparin drip. Takotsubo cardiomyopathy NSTEMI Paroxysmal atrial fibrillation EKG on admission with atrial fibrillation with diffuse ST depression. High sensitive troponin elevated to 1190; downtrended Echocardiogram 09/06 showed EF of 20 to 25%; large wall motion abnormality with severe hypokinesis to dyskinesis of mid and apical left ventricular myocardial wall. Repeat echo 09/10 showed improved EF of 35-40% Currently on IV heparin. Continue Toprol XL discontinued; switched over to metoprolol tartrate Continue on Plavix and statin. Plan to repeat echocardiogram in 2 to 3 days as per cardiology. Appreciate cardiology recs Possible DKA, resolved Sugars in 300s and has anion gap on admission Initially placed on insulin drip. Not on any medications at home. reports that her blood glucose has been around 110s to 120s most of the time but recently elevated to 200s Continue on subcu insulin. Pharmacy glycemic consult ANDRESSA on CKD stage III, likely prerenal due to sepsis vs cardiorenal Hyponatremia likely due to ANDRESSA Presented with creatinine 1.7 Creatinine elevated to 2, improving slowly with gentle hydration With improved EF, started on very gentle IVF per recs of cardiology and nephrology Nephrology consult- appreciate recs Elevated liver enzymes Liver Mass Liver enzyme levels Increased over hospitalization time US liver ordered -concerning for increasing liver mass when compared to lesion noted on i maging from Jul 2022, radiology recommending tissue sampling CT abd/pelvis from 09/06 with no noted mass, consider confirming read with radiologist reading that CT GI consult placed- appreciate further recs History of asthma History of COPD History of drug-induced interstitial lung disorders Continue home inhalers DuoNebs as needed Also on hypertonic saline. History of CAD Beta-rhoda with holding parameters Continue statin and Plavix History of paroxysmal atrial fibrillation On beta-rhoda On heparin drip Cardiology on board. History of CVA On statin and Plavix History of C. difficile C diff gene negative at this time Previously started on po vancomycin by ID Continue home p.o. vancomycin at this time Will contact ID to ensure ok to dc vanc given pt's history -per ID ok to dc po Vanc History of esophageal dysphagia Speech consulted; restarting pured diet. hypertension Will hold amlodipine for sepsis Metoprolol with holding parameters rheumatoid arthritis Will hold Plaquenil On prednisone 5 mg daily which will be held Was placed on stress dose steroids IV hydrocortisone 50 mg every 6 hours. Will decrease the frequency to every 8 hours. Gradually wean back down to pr ednisone 5 mg once daily. History of vitamin B1 and B12 deficiency Continue supplements depression Continue duloxetine DVT prophylaxis: On IV heparin Diet: DMII, pureed, nutrition consult placed. Admission and Anticipated Discharge Date Admission Date: September 05, 2023 Subjective Pt seen with family at bedside. More alert but delirious. Knew her food had come in, and was chewing and pretending to eat it believing t hat she had already taken the fork. Family notes increasing confusion at home at baseline. Review of Systems Review of Systems: Unobtainable due to cognitive status Physical Exam Physical Exam: General: Alert Skin: No noted rashes or bruises Psych:could not be determined Neuro: Alert HEENT: NC/AT Chest: Nontender to palpation. CV: RRR Resp: Breath sounds clear bilaterally, no increased effort of breathing. Abdomen: Soft, nontender Extremities: No edema in lower extremities bilaterally. Results & Data Results & Data Vital Signs (Past 12 Hours) Vital Signs Temp Pulse Pulse Resp BP Pulse Ox O2 Del Method 09/11/23 12:09 36.5 C 76 19 127/65 100 Nasal Cannula 09/11/23 11:38 71 09/11/23 10:56 68 18 100 Nasal Cannula 09/11/23 08:31 Room Air 09/11/23 07:38 72 18 97 Nasal Cannula 09/11/23 07:33 36.8 C 74 18 131/68 98 Room Air 09/11/23 03:20 36.9 C 82 20 115/72 92 Room Air O2 Flow Rate 09/11/23 12:09 2 09/11/23 11:38 09/11/23 10:56 2 09/11/23 08:31 09/11/23 07:38 2 09/11/23 07:33 09/11/23 03:20 (1) Sepsis Sepsis acute organ dysfunction status: with acute organ dysfunction Sepsis type: sepsis due to unspecified organism Severe sepsis acute organ dysfunction type: encephalopathy Severe sepsis shock status: without septic shock Qualified Code(s): A41.9 - Sepsis, unspecified organism; R65.20 - Severe sepsis without septic shock; G93.41 - Metabolic encephalopathy
[2023-09-11] MEDS: ROSUVASTATIN CALCIUM 20 MG TAB PO SCH (21:12)
[2023-09-11] MEDS: LATANOPROST 0.005% OP SOLN 2.5 ML BTL OPB SCH (21:13)
[2023-09-12 06:02] LABS: Hematocrit (blood only) 25.9 % (37.0-47.0); Hemoglobin 8.7 g/dl (12.0-16.0); Mean Corpuscular Hemoglobin 28.1 pg (25.0-34.0); Mean Corpuscular Hgb Conc 33.6 g/dL (32.0-36.0); Mean Corpuscular Volume 83.5 fL (80.0-100.0); Mean Platelet Volume 8.9 fL (9.4-12.4); Platelet Count 215 K/uL (130-400); RDW Coefficient of Variation 18.8 % (11.5-14.5); RDW Standard Deviation 52.4 fL (36.4-46.3); White Blood Count 15.78 K/ul (4.8-10.8)
[2023-09-12] MEDS: THIAMINE HCL 250 MG in SODIUM CHLORIDE 0.9% 50 ML IV SCH ×3 (06:14→21:06)
[2023-09-12 06:21] LABS: Albumin Globulin Ratio 1.2 (0.9-2); Albumin Level 2.7 gm/dl (3.4-5.0); BUN Creatinine Ratio 35.1 (10-20); Bilirubin,Total 0.4 mg/dl (0.2-1.0); Calcium 8.5 mg/dl (8.6-10.3); Creatinine Clr Calc Pharmacy 24.7 ml/min; Est GFR (African American) 33.8 ml/min; Est GFR (Non-African American) 29.2 ml/min; Globulin 2.3 gm/dl (2.5-4.0); Phosphorus 3.3 mg/dl (2.5-4.9); Potassium 4.3 mmol/L (3.5-5.1)
[2023-09-12 06:26] LABS: Basophils # (auto) 0.03 K/uL (0.00-0.20); Basophils % (auto) 0.2 %; Immature Granulocytes # (auto) 0.56 K/uL (0.01-0.20); Immature Granulocytes % (auto) 3.5 %; Lymphocytes # (auto) 0.36 K/uL (1.20-3.40); Lymphocytes % (auto) 2.3 %; Monocytes # (auto) 0.53 K/uL (0.11-0.59); Monocytes % (auto) 3.4 %; Neutrophils % (auto) 90.6 %
[2023-09-12 06:29] LABS: ANTI-Xa, UFH(UnfractionatedHep 0.45 IU/ml (0.3-0.7)
[2023-09-12] MEDS: SODIUM CHLOR 7% 4 ML NEB NEB SCH ×2 (07:21→20:02)
[2023-09-12] MEDS: IPRATROPIUM BROMIDE NEB SOLN 0.02% 2.5 ML VIAL INH SCH ×4 (07:21→20:02)
[2023-09-12] MEDS: LEVALBUTEROL 1.25 MG/3 ML NEB NEB SCH ×4 (07:21→20:03)
[2023-09-12] MEDS: LANTUS PER UNIT CHARGE SC SCH (08:52)
[2023-09-12] MEDS: CHOLECALCIFEROL 1,000 UNITS 25 MCG TAB PO SCH (08:53)
[2023-09-12] MEDS: INSULIN ASPART PER UNIT CHARGE SC SCH ×3 (08:53→17:46)
[2023-09-12] MEDS: HYDROCORTISONE SOD 50 MG in SYRINGE 0 ML IV SCH ×2 (08:53→21:04)
[2023-09-12] MEDS: NYSTATIN SUSP 500,000 U/5 ML UDC PO SCH ×4 (08:54→21:05)
[2023-09-12] MEDS: ADVANCED PROBIOTIC 1250 MG CAPSULE PO SCH ×2 (08:54→21:05)
[2023-09-12] MEDS: PANTOprazole 40 MG TAB PO SCH (08:54)
[2023-09-12] MEDS: OXYBUTYNIN CHLORIDE XL 5 MG TABCR PO SCH (08:54)
[2023-09-12] MEDS: DULoxetine HCL 60 MG CAP PO SCH (08:54)
[2023-09-12] MEDS: METOPROLOL TARTRATE 25 MG TAB PO SCH (08:54)
[2023-09-12] MEDS: MONTELUKAST SODIUM 10 MG TABLET PO SCH (08:54)
[2023-09-12] MEDS: FERROUS SULFATE 325 MG TAB PO SCH (08:54)
[2023-09-12] MEDS: CEROVITE ADV FORMULA TAB PO SCH (08:55)
[2023-09-12] MEDS: CLOPIDOGREL BISULFATE 75 MG TAB PO SCH (08:55)
[2023-09-12] MEDS: FLUTICASONE/VILANTEROL 200/25MCG 14 PUFFS/INHALER INH SCH (08:55)
[2023-09-12] MEDS: FOLIC ACID 1 MG TAB PO SCH (08:57)
--- NOTE | 2023-09-12 10:18 | Nephrology Progress Note ---
Date of Service September 12, 2023 Assessment & Plan (1) ANDRESSA (acute kidney injury): Plan: Patient with acute renal failure due to ischemic ATN in setting of sepsis and low EF. Patient with Takotsubo type cardiomyopathy with a EF of 20%. She is nonoliguric. She has made 650 mL of urine today. Creatinine down to 1.68 from 1.9 yesterday electrolytes are still stable except for mild hyponatremia. No indication for dialysis. -Okay for maintenance fluids -Okay to give bolus of Lasix if worsening respiratory status although it appears to be mainly COPD -Daily BMP -Monitor input output (2) Hyponatremia: Plan: This is due to renal failure and CHF. Sodium now normal today. Patient is not drinking much. Will continue to monitor daily sodium. Admission and Anticipated Discharge Date Admission Date: September 05, 2023 Subjective Seen for acute kidney injury. She feels better today. Creatinine downtrending but liver enzymes uptrending. She made 650 mL of urine yesterday. Review of Systems 2 Review of Systems: All other systems were reviewed and negative except as noted in HPI Physical Exam 2 Physical Exam: General exam: Appears comfortable, no acute distress HEENT: Pupils are equal and reactive to light Neck: No JVD, neck is supple trachea is midline Respiratory system: wheezing bilaterally. Gastrointestinal: Abdomen is soft, non distended, non tender, bowel sounds are present CVS: Regular rate and rhythm. No murmurs, rubs or gallops Musculoskeletal: No joint or muscle tenderness Extremities: Non tender, no edema, peripheral pulses are present Neuro: Oriented, no tremors, no focal neurological deficits Skin: No rashes Results & Data Vital Signs (Past 12 Hours) Vital Signs Temp Pulse Pulse Resp BP Pulse Ox O2 Del Method 09/12/23 09:19 79 09/12/23 07:29 36.5 C 61 19 147/67 H 90 Nasal Cannula 09/12/23 07:21 65 18 98 Room Air 09/12/23 02:39 Nasal Cannula 09/12/23 02:36 36.4 C L 74 16 129/67 99 Nasal Cannula 09/11/23 23:23 36.4 C L 86 16 132/73 99 Nasal Cannula O2 Flow Rate 09/12/23 09:19 09/12/23 07:29 09/12/23 07:21 09/12/23 02:39 2 09/12/23 02:36 09/11/23 23:23 1 Laboratory Results 09/12/23 05:43 09/12/23 05:43 WBC 15.78 H RBC 3.10 L MCV 83.5 MCH 28.1 MCHC 33.6 RDW Std Deviation 52.4 H RDW Coeff of Xochitl 18.8 H Plt Count 215 MPV 8.9 L Phosphorus 3.3 Albumin 2.7 L
--- NOTE | 2023-09-12 12:28 | Cardiology Progress Note ---
Date of Service September 12, 2023 Assessment & Plan (1) Sepsis: (2) Paroxysmal atrial fibrillation: (3) Takotsubo cardiomyopathy: (4) NSTEMI (non-ST elevated myocardial infarction): (5) Acute renal failure: (6) Acute metabolic encephalopathy: Plan 78-year-old female admitted with acute sepsis and encephalopathy, paroxysmal atrial fibrillation with RVR, and echocardiographic evidence of severe LV systolic dysfunction most consistent with stress-induced (Takotsubo) cardio myopathy. Follow-up TTE 09/10/23 revealed improvement in LVEF, now 35-40%. Continue metoprolol tartrate 25 mg 3 times daily and IV heparin. Candidacy for long-term anticoagulation to be determined. Patient currently sinus rhythm with PACs. Reassess LV systolic function and 2 to 3 days. Continue clopidogrel and rosuvastatin as ordered. Amlodipine remains on hold due to intermittent borderline, hypotension. 09/12/2023 Treatment of sepsis and underlying encephalopathy per primary service No further atrial fibrillation but risk for further episodes Will change metoprolol to tartrate to metoprolol succinate 50 mg twice per day Repeat echocardiogram 2 to 4 weeks Admission and Anticipated Discharge Date Admission Date: September 05, 2023 Subjective Chart, medications, telemetry reviewed. No further atrial fibrillation but occasional short salvos of atrial tac hycardia. Underlying mechanism is sinus rhythm with atrial ectopy No profound hypotension Results & Data Vital Signs (Past 12 Hours) Vital Signs Temp Pulse Pulse Resp BP Pulse Ox O2 Del Method 09/12/23 11:57 78 18 96 Room Air 09/12/23 11:13 36.5 C 70 19 131/63 98 Room Air 09/12/23 09:19 79 09/12/23 07:29 36.5 C 61 19 147/67 H 90 Nasal Cannula 09/12/23 07:21 65 18 98 Room Air 09/12/23 02:39 Nasal Cannula 09/12/23 02:36 36.4 C L 74 16 129/67 99 Nasal Cannula O2 Flow Rate 09/12/23 11:57 09/12/23 11:13 09/12/23 09:19 09/12/23 07:29 09/12/23 07:21 09/12/23 02:39 2 09/12/23 02:36 Laboratory Results Laboratory Results - last 24 hr 09/11/23 09/11/23 09/12/23 16:31 20:13 05:43 WBC 15.78 H RBC 3.10 L Hgb 8.7 L Hct 25.9 L MCV 83.5 MCH 28.1 MCHC 33.6 RDW Std Deviation 52.4 H RDW Coeff of Xochitl 18.8 H Plt Count 215 MPV 8.9 L Immature Gran % (Auto) 3.5 Neut % (Auto) 90.6 Lymph % (Auto) 2.3 Hayes % (Auto) 3.4 Eos % (Auto) 0.0 Baso % (Auto) 0.2 Neut # (Auto) 14.30 H Lymph # (Auto) 0.36 L Hayes # (Auto) 0.53 Eos # (Auto) 0.00 Baso # (Auto) 0.03 Immature Gran # (Auto) 0.56 H Heparin Anti-Xa, Unfract 0.45 Sodium 137 Potassium 4.3 Chloride 109 H Carbon Dioxide 20 L Anion Gap 8 BUN 59 H Creatinine 1.68 H Est Cr Clr Drug Dosing 24.7 Est GFR ( Amer) 33.8 Est GFR (Non-Af Amer) 29.2 BUN/Creatinine Ratio 35.1 H Glucose 158 H POC Glucose 115 H 165 H Calcium 8.5 L Ionized Calcium 1.27 Phosphorus 3.3 Magnesium 2.0 Total Bilirubin 0.4 AST 326 H ALT 177 H Alkaline Phosphatase 165 H Total Protein 5.0 L Albumin 2.7 L Globulin 2.3 L Albumin/Globulin Ratio 1.2 09/12/23 09/12/23 07:31 11:52 WBC RBC Hgb Hct MCV MCH MCHC RDW Std Deviation RDW Coeff of Xochitl Plt Count MPV Immature Gran % (Auto) Neut % (Auto) Lymph % (Auto) Hayes % (Auto) Eos % (Auto) Baso % (Auto) Neut # (Auto) Lymph # (Auto) Hayes # (Auto) Eos # (Auto) Baso # (Auto) Immature Gran # (Auto) Heparin Anti-Xa, Unfract Sodium Potassium Chloride Carbon Dioxide Anion Gap BUN Creatinine Est Cr Clr Drug Dosing Est GFR ( Amer) Est GFR (Non-Af Amer) BUN/Creatinine Ratio Glucose POC Glucose 163 H 96 Calcium Ionized Calcium Phosphorus Magnesium Total Bilirubin AST ALT Alkaline Phosphatase Total Protein Albumin Globulin Albumin/Globulin Ratio (1) Sepsis Sepsis type: sepsis due to unspecified organism Sepsis acute organ dysfunction status: with acute organ dysfunction Severe sepsis acute organ dysfunction type: encephalopathy Severe sepsis shock status: without septic shock Qualified Code(s): A41.9 - Sepsis, unspecified organism; R65.20 - Severe sepsis without septic shock; G93.41 - Metabolic encephalopathy (5) Acute renal failure Acute renal failure type: unspecified Qualified Code(s): N17.9 - Acute kidney failure, unspecified
--- NOTE | 2023-09-12 12:41 | Communication Note ---
Date of Service: September 12, 2023 78 yo CF with an extensive PMHx and complex medical course who underwent a CT abd/pelvis and was noted to have a Liver lesion in the Right hepatic lobe. At the present time, due to her ongoing medical treatment for Sepsis, Cardiomyopathy, DKA, and NSTEMI, she is not a good candidate to undergo IR biopsy of the liver lesion. I would recommend evaluation by IR following resolution of her acute care needs at present. Her liver panel elevation could be multifactorial in regards to her NSTEMI, Cardiomyopathy, recent sepsis, or liver lesion, though her liver function does not appear compromised at present. Plan: Outpatient IR evaluation for liver lesion in Right Hepatic lobe following resolution of acute issues.
[2023-09-12] MEDS: METOPROLOL SUCC 50MG EXT REL TAB PO SCH (17:47)
--- NOTE | 2023-09-12 18:09 | Hospitalist Progress Note ---
Date of Service September 12, 2023 Assessment & Plan (1) Sepsis: Plan: 75-year-old female with past med history significant for type 2 diabetes, CKD stage III, hyperlipidemia, chronic drug-induced interstitial lung disorders, asthma mild persistent, COPD, chronic right-sided heart failure, hypertension, history of CAD, history of CVA, mild aortic stenosis, paroxysmal atrial fibrillation, moderate protein calorie malnutrition, slow transit constipation, vitamin B-12 and thiamine deficiency, history of esophageal dysphagia, GERD, gout, osteoarthritis, primary open-angle glaucoma, polyneuropathy, rheumatoid arthritis involving multiple sites with positive rheumatoid factor, depression, history of C. difficile, history of COVID, history of fever of unknown origin admitted with fever and lethargy. Sepsis, POA Metabolic encephalopathy likely due to sepsis Patient presented with fever and lethargy for 2 days. Patient reports sore throat and hoarse voice WBC trended up, currently on downtrend (pt on steroids as well) Chest x-rayno acute finding. CT chest- infiltrate on right lung field; small bilateral pleural effusion CT abdomen and pelvisno acute finding CT headno acute finding Urine cultureno acute finding Blood cultureno growth to date Continue ertapenem Neurology consult- appreciate recs. -MRI brain without contrast: per neurology no acute concerns -EEG suggestive of encephalopathy Can consider lumbar puncture if patient continues to be encephalopathic after she is off heparin drip. Mental status has been improving Takotsubo cardiomyopathy NSTEMI Paroxysmal atrial fibrillation EKG on admission with atrial fibrillation with diffuse ST depression. High sensitive troponin elevated to 1190; downtrended Echocardiogram 09/06 showed EF of 20 to 25%; large wall motion abnormality with severe hypokinesis to dyskinesis of mid and apical left ventricular myocardial wall. Repeat echo 09/10 showed improved EF of 35-40% Currently on IV heparin. Continue per cardiology Toprol XL discontinued; switched over to metoprolol tartrate Continue on Plavix and statin. Plan to repeat echocardiogram in 2 to 3 days as per cardiology. Appreciate cardiology recs Elevated liver enzymes Liver Mass Liver enzyme levels increased over hospitalization time US liver ordered -concerning for increasing liver mass when compared to lesion noted on imaging from Jul 2022, radiology recommending tissue sampling CT abd/pelvis from 09/06 with no noted mass, consider confirming read with radiologist reading that CT GI consult placed- appreciate further recs -recommending outpt IR biopsy on discharge Holding home statin with liver enzyme elevation Possible DKA, resolved Sugars in 300s and had anion gap on admission Initially placed on insulin drip. Not on any medications at home. reports that her blood glucose has been around 110s to 120s most of the time but recently elevated to 200s Continue on subcu insulin. Pharmacy glycemic consult ANDRESSA on CKD stage III, likely prerenal due to sepsis vs cardiorenal Hyponatremia likely due to ANDRESSA Presented with creatinine 1.7 Creatinine elevated to 2, improving slowly with gentle hydration With improved EF, started on very gentle IVF per recs of cardiology and nephrology Nephrology consult- appreciate recs History of asthma History of COPD History of drug-induced interstitial lung disorders Continue home inhalers DuoNebs as needed Also on hypertonic saline. History of CAD Beta-rhoda with holding parameters Continue statin and Plavix History of paroxysmal atrial fibrillation On beta-rhoda On heparin drip Cardiology on board. History of CVA On statin and Plavix History of C. difficile C diff gene negative at this time Previously started on po vancomycin by ID Continue home p.o. vancomycin at this time Will contact ID to ensure ok to dc vanc given pt's history -per ID ok to dc po Vanc History of esophageal dysphagia Speech consulted; restarting pured diet. hypertension Will hold amlodipine for sepsis Metoprolol with holding parameters rheumatoid arthritis Will hold Plaquenil On prednisone 5 mg daily which will be held Was placed on stress dose steroids IV hydrocortisone 50 mg every 6 hours. Will decrease the frequency to every 8 hours. Gradually wean back down to prednisone 5 mg once daily. History of vitamin B1 and B12 deficiency Continue supplements depression Continue duloxetine DVT prophylaxis: On IV heparin Diet: DMII, pureed, nutrition consult placed. Admission and Anticipated Discharge Date Admission Date: September 05, 2023 Subjective Pt seen with at bedside feeding her. Discussed US results and GI consult. Agreeable to outpt workup. Review of Systems Review of Systems: Unobtainable due to mental health condition Physical Exam Physical Exam: General: Alert Psych:could not be determined Neuro: more Alert today HEENT: NC/AT Chest: Nontender to palpation. CV: RRR Resp: Breath sounds clear bilaterally, no increased effort of breathing. Abdomen: Soft, nontender Results & Data Results & Data Vital Signs (Past 12 Hours) Vital Signs Temp Pulse Pulse Resp BP Pulse Ox O2 Del Method 09/12/23 16:00 36.3 C L 72 24 156/71 H 98 Room Air 09/12/23 15:07 79 18 95 Room Air 09/12/23 11:57 78 18 96 Room Air 09/12/23 11:13 36.5 C 70 19 131/63 98 Room Air 09/12/23 09:19 79 09/12/23 07:29 36.5 C 61 19 147/67 H 90 Nasal Cannula 09/12/23 07:21 65 18 98 Room Air (1) Sepsis Sepsis acute organ dysfunction status: with acute organ dysfunction Sepsis type: sepsis due to unspecified organism Severe sepsis acute organ dysfunction type: encephalopathy Severe sepsis shock status: without septic shock Qualified Code(s): A41.9 - Sepsis, unspecified organism; R65.20 - Severe sepsis without septic shock; G93.41 - Metabolic encephalopathy
[2023-09-12] MEDS: LATANOPROST 0.005% OP SOLN 2.5 ML BTL OPB SCH (21:40)
[2023-09-13] MEDS: INSULIN ASPART PER UNIT CHARGE SC SCH ×5 (01:28→22:01)
[2023-09-13 06:32] LABS: Basophils # (auto) 0.04 K/uL (0.00-0.20); Basophils % (auto) 0.3 %; Hematocrit (blood only) 26.3 % (37.0-47.0); Hemoglobin 8.6 g/dl (12.0-16.0); Immature Granulocytes # (auto) 0.37 K/uL (0.01-0.20); Immature Granulocytes % (auto) 2.7 %; Lymphocytes # (auto) 0.56 K/uL (1.20-3.40); Lymphocytes % (auto) 4.1 %; Mean Corpuscular Hemoglobin 27.9 pg (25.0-34.0); Mean Corpuscular Hgb Conc 32.7 g/dL (32.0-36.0); Mean Corpuscular Volume 85.4 fL (80.0-100.0); Mean Platelet Volume 8.9 fL (9.4-12.4); Monocytes # (auto) 0.49 K/uL (0.11-0.59); Monocytes % (auto) 3.6 %; Neutrophils # (auto) 12.29 K/uL (1.40-6.50); Neutrophils % (auto) 89.3 %; Platelet Count 204 K/uL (130-400); RDW Coefficient of Variation 18.7 % (11.5-14.5); RDW Standard Deviation 55.5 fL (36.4-46.3); Red Blood Count 3.08 M/uL (4.20-5.40); White Blood Count 13.75 K/ul (4.8-10.8)
[2023-09-13 06:48] LABS: Albumin Globulin Ratio 1.1 (0.9-2); Albumin Level 2.7 gm/dl (3.4-5.0); BUN Creatinine Ratio 37.7 (10-20); Bilirubin,Total 0.4 mg/dl (0.2-1.0); Calcium 8.8 mg/dl (8.6-10.3); Creatinine Clr Calc Pharmacy 28.7 ml/min; Est GFR (African American) 40.1 ml/min; Est GFR (Non-African American) 34.6 ml/min; Globulin 2.4 gm/dl (2.5-4.0); Phosphorus 3.2 mg/dl (2.5-4.9); Potassium 4.1 mmol/L (3.5-5.1); Total Protein 5.1 gm/dl (6.0-8.3)
[2023-09-13 06:49] LABS: ANTI-Xa, UFH(UnfractionatedHep 0.42 IU/ml (0.3-0.7)
[2023-09-13] MEDS: NYSTATIN SUSP 500,000 U/5 ML UDC PO SCH ×4 (08:23→19:46)
[2023-09-13] MEDS: HEPARIN SODIUM/DEXTROSE 25,000 UNITS/500 ML BAG IV SCH (08:23)
[2023-09-13] MEDS: CEROVITE ADV FORMULA TAB PO SCH (08:24)
[2023-09-13] MEDS: PANTOprazole 40 MG TAB PO SCH (08:24)
[2023-09-13] MEDS: OXYBUTYNIN CHLORIDE XL 5 MG TABCR PO SCH (08:24)
[2023-09-13] MEDS: MONTELUKAST SODIUM 10 MG TABLET PO SCH (08:24)
[2023-09-13] MEDS: METOPROLOL SUCC 50MG EXT REL TAB PO SCH ×2 (08:24→17:34)
[2023-09-13] MEDS: CHOLECALCIFEROL 1,000 UNITS 25 MCG TAB PO SCH (08:25)
[2023-09-13] MEDS: CLOPIDOGREL BISULFATE 75 MG TAB PO SCH (08:25)
[2023-09-13] MEDS: DULoxetine HCL 60 MG CAP PO SCH (08:25)
[2023-09-13] MEDS: THIAMINE HCL 250 MG in SODIUM CHLORIDE 0.9% 50 ML IV SCH (08:25)
[2023-09-13] MEDS: FERROUS SULFATE 325 MG TAB PO SCH (08:25)
[2023-09-13] MEDS: FLUTICASONE/VILANTEROL 200/25MCG 14 PUFFS/INHALER INH SCH (08:26)
[2023-09-13] MEDS: HYDROCORTISONE SOD 50 MG in SYRINGE 0 ML IV SCH (08:28)
[2023-09-13] MEDS: ADVANCED PROBIOTIC 1250 MG CAPSULE PO SCH ×2 (08:29→19:47)
[2023-09-13] MEDS: FOLIC ACID 1 MG TAB PO SCH (08:29)
[2023-09-13] MEDS: LANTUS PER UNIT CHARGE SC SCH (09:04)
--- NOTE | 2023-09-13 09:51 | Hospitalist Progress Note ---
Date of Service September 13, 2023 Assessment & Plan (1) Sepsis: Plan: 75-year-old female with past med history significant for type 2 diabetes, CKD stage III, hyperlipidemia, chronic drug-induced interstitial lung disorders, asthma mild persistent, COPD, chronic right-sided heart failure, hypertension, history of CAD, history of CVA, mild aortic stenosis, paroxysmal atrial fibrillation, moderate protein calorie malnutrition, slow transit constipation, vitamin B-12 and thiamine deficiency, history of esophageal dysphagia, GERD, gout, osteoarthritis, primary open-angle glaucoma, polyneuropathy, rheumatoid arthritis involving multiple sites with positive rheumatoid factor, depression, history of C. difficile, history of COVID, history of fever of unknown origin admitted with fever and lethargy. Sepsis, POA-resolved R lung pneumonia-treated Acute metabolic encephalopathy-resolved Metabolic encephalopathy likely due to sepsis-resolved Neurology consult- -MRI brain without contrast: per neurology no acute concerns -EEG suggestive of encephalopathy Patient presented with fever and lethargy for 2 days. Patient reported sore throat and hoarse voice CT chest- infiltrate on right lung field; small bilateral pleural effusion CT abdomen and pelvisno acute finding CT headno acute finding Urine cultureno growth Blood cultureno growth to date She received 2 days of cefepime and vancomycin followed by 5 days of ertapenem for a full antibiotic course and to treat pneumonia. She is oxygenating well on room air. Repeat chest imaging in 4 weeks time. She has been resuscitated from a sepsis standpoint and this is resolved. She remains afebrile Acute systolic heart failure 2/2 Takotsubo cardiomyopathy NSTEMI History of CAD Paroxysmal atrial fibrillation EKG on admission with atrial fibrillation with diffuse ST depression. High sensitive troponin elevated to 1190; downtrended Echocardiogram 09/06 showed EF of 20 to 25%; large wall motion abnormality with severe hypokinesis to dyskinesis of mid and apical left ventricular myocardial wall. Repeat echo 09/10 showed improved EF of 35-40% Currently on IV heparin. Continue GDMT per cardiology Toprol XL discontinued; switched over to metoprolol tartrate Continue on Plavix and statin. Elevated liver enzymes Liver Mass Liver enzyme levels increased over hospitalization time poss 2/2 sepsis vs medication side effect. US liver ordered -concerning for increasing liver mass when compared to lesion noted on imaging from Jul 2022, radiology recommending tissue sampling CT abd/pelvis from 09/06 with no noted mass, consider confirming read with radiologist reading that CT GI consult placed- appreciate further recs -recommending outpt IR biopsy on discharge, not likely the cause of her elevated LFTs and procedure at this time is not hairston given her illness Holding home statin with liver enzyme elevation Possible DKA, resolved Sugars in 300s and had anion gap on admission Initially placed on insulin drip. Not on any medications at home. reports that her blood glucose has been around 110s to 120s most of the time but recently elevated to 200s Continue on subcu insulin. Pharmacy glycemic consult ANDRESSA on CKD stage III, likely prerenal due to sepsis vs cardiorenal Hyponatremia likely due to ANDRESSA Presented with creatinine 1.7 Creatinine elevated to 2, improving slowly with gentle hydration Improved to 1.46 today with a baseline of 1. Continue to encourage p.o. intake. This is likely related to ATN from sepsis and is expected to improve with additional time History of asthma History of COPD History of drug-induced interstitial lung disorders Chronic, stable. Continue supportive care as needed. Continue home inhalers History of CVA chronic, stable. Uncertain if any residual deficits. On statin and Plavix History of C. difficile C diff gene negative at this time Previously started on po vancomycin by ID Continue home p.o. vancomycin at this time Will contact ID to ensure ok to dc vanc given pt's history -per ID ok to dc po Vanc -No diarrhea with normal BM overnight per nursing notes. History of esophageal dysphagia Speech consulted; restarting pured diet. hypertension chronic, stable. Cont current therapy. rheumatoid arthritis chronic, stable. Cont holding plaquenil. She was initially started on stress dose hydrocortisone, but is clinically improved so this will be stopped. Side effects outweigh the benefits at this point. She will be restarted on her chronic prednisone today. History of vitamin B1 and B12 deficiency Continue supplementation when more alert. depression chronic, stable. Continue duloxetine DVT prophylaxis: On IV heparin Diet: DMII, pureed, nutrition consult placed. DNR/DNI I spent a total [id number] coordinating, documenting, and providing care for this patient excluding time spent in the performance of separately billed services Belkis Seymour DO [facility] Hospitalist (2) Acute heart failure with reduced ejection fraction and diastolic dysfunction: (3) ANDRESSA (acute kidney injury): (4) Atrial fibrillation with rapid ventricular response: (5) Takotsubo cardiomyopathy: (6) Heart disease: (7) HTN (hypertension): (8) NSTEMI (non-ST elevated myocardial infarction): (9) DM type 2 (diabetes mellitus, type 2): (10) Rheumatoid arthritis: Admission and Anticipated Discharge Date Admission Date: September 05, 2023 Subjective 78-year-old female admitted with acute sepsis secondary to UTI, NSTEMI, possible DKA, acute kidney injury, encephalopathy and found to have severe LV systolic dysfunction most consistent with Takotsubo cardiomyopathy. She has a h/o rheumatoid arthritis. This morning she is difficult to understand as she is a dentulous and extremely weak. She denies any pain and feels clear in her thoughts. She is oriented as far as I can tell, understanding that she is at [facility]. She is too weak to lift her body over and roll easily. She has been resuscitated from a sepsis standpoint and treated for pneumonia with a 7 day course of IV abx. No evidence of UTI on culture results. She was in sinus rhythm yesterday morning but back in atrial fibrillation overnight. Physical Exam Physical Exam: CONSTITUTIONAL: WNWD, vitals as above, appears chronically ill and weak EYES: Pupils are round and equal bilaterally, normal conjunctivae, no scleral icterus ENT: external ear and nose normal, oropharynx clear, mucous membranes are dry, edentulous NECK: trachea midline RESPIRATORY: clear to auscultation bilaterally, no crackles, rales or wheezes, normal respiratory effort. Exam is limited as patient is extremely weak and unable to roll [id number] or sit up CARDIOVASCULAR: regular rate and rhythm, S1 and 2 heard without murmurs, gallops or rubs, no JVD, no peripheral edema CHEST: inspection of chest was normal GASTROINTESTINAL: soft, nontender, nondistended, no guarding MUSCULOSKELETAL: Generalized weakness, head is normocephalic and atraumatic SKIN: warm and dry NEUROLOGIC: CN 2-12 grossly intact, no sensory deficit, normal cognition, abnormal speech as patient is a dentulous with dry mouth., No tremor PSYCHIATRIC: alert cooperative and oriented, makes good eye contact when prompted. Results & Data Results & Data Vital Signs (Past 12 Hours) Vital Signs Temp Pulse Pulse Resp BP Pulse Ox O2 Del Method 09/13/23 08:06 36.4 C L 73 19 151/71 H 97 Room Air 09/13/23 03:00 36.5 C 81 16 152/79 H 96 Room Air 09/12/23 23:00 Room Air 09/12/23 23:00 36.5 C 82 20 161/84 H 99 Room Air 09/12/23 22:00 90 Laboratory Results Short CBC 09/13/23 Range/Units 05:41 WBC 13.75 H (4.8-10.8) K/ul Hgb 8.6 L (12.0-16.0) g/dl Hct 26.3 L (37.0-47.0) % Plt Count 204 (130-400) K/uL BMP 09/13/23 05:41 Sodium 139 Potassium 4.1 Chloride 110 H Carbon Dioxide 22 BUN 55 H Creatinine 1.46 H Glucose 135 H Calcium 8.8 Liver Function 09/13/23 Range/Units 05:41 Total Bilirubin 0.4 (0.2-1.0) mg/dl AST 498 H (13-39) U/L ALT 291 H (7-52) U/L Alkaline Phosphatase 186 H (34-104) U/L Albumin 2.7 L (3.4-5.0) gm/dl Medications Administered Current Inpatient Medications Albuterol (Albuterol Hfa 8 Gm Inhaler) 2 puffs INH Q4 PRN PRN Reason: Shortness Of Breath Stop: 10/05/23 23:48 Albuterol (Albuterol 0.083% Nebu Soln 3 Ml Vial) 2.5 mg INH DAILY PRN; Protocol PRN Reason: Shortness Of Breath Or Wheezing Stop: 10/05/23 23:48 Calamine/Phenol (Menthol-Zinc Oxide 360 Appln/120 Gm Tube) 1 appln EXT BID PRN PRN Reason: AFFECTED AREA Stop: 10/05/23 23:48 Clopidogrel Bisulfate (Clopidogrel Bisulfate 75 Mg Tab) 75 mg PO QAM [facility] Stop: 10/06/23 08:59 Last Admin: 09/13/23 08:25 Dose: 75 mg Dextrose (Dextrose 50% 50 Ml Syringe) 25 - 50 ml IV UD PRN; Protocol PRN Reason: Hypoglycemia Protocol Stop: 10/06/23 00:17 Duloxetine HCl (Duloxetine Hcl 60 Mg Cap) 60 mg PO QAM [facility] Stop: 10/06/23 08:59 Last Admin: 09/13/23 08:25 Dose: 60 mg Ferrous Sulfate (Ferrous Sulfate 325 Mg Tab) 325 mg PO QAM [facility] Stop: 10/06/23 08:59 Last Admin: 09/13/23 08:25 Dose: 325 mg Fluticasone/Vilanterol (Fluticasone/Vilanterol 200/25mcg 14 Puffs/Inhaler) 1 puffs INH DAILY [facility] Stop: 10/06/23 08:59 Last Admin: 09/13/23 08:26 Dose: Not Given Folic Acid (Folic Acid 1 Mg Tab) 1 mg PO QAM [facility] Stop: 10/06/23 08:59 Last Admin: 09/13/23 08:29 Dose: 1 mg Glucagon (Glucagon For Inj 1 Mg Vial) 1 mg SQ UD PRN; Protocol PRN Reason: Hypoglycemia Protocol Stop: 10/06/23 00:17 Glucose (Glucose 10 Tab/Tube) 4 - 8 tab PO UD PRN; Protocol PRN Reason: Hypoglycemia Treatment Stop: 10/06/23 00:17 Glucose (Glucose 40% Gel 15 Gm Tube) 15 - 30 gm PO UD PRN; Protocol PRN Reason: Hypoglycemia Protocol Stop: 10/06/23 00:17 Heparin Sodium/Dextrose (Heparin Sodium/Dextrose) 25,000 units in 500 mls @ 10 mls/hr IV .Q24H [facility]; Protocol Stop: 10/05/23 20:29 Last Admin: 09/13/23 08:23 Dose: 500 units/hr, 10 mls/hr Thiamine HCl 250 mg/ Sodium (Chloride) 52.5 mls @ 210 mls/hr IV Q8H [facility] Stop: 10/07/23 13:59 Last Infusion: 09/13/23 09:17 Dose: Infused Hydrocortisone Sodium (Succinate 50 mg/ Syringe) 1 mls @ 4 mls/min IV Q12H [facility] Stop: 10/12/23 08:59 Last Admin: 09/13/23 08:28 Dose: 4 mls/min Insulin Aspart (Insulin Aspart Per Unit Charge) 0 units SC ACHS [facility]; Protocol Stop: 10/06/23 11:29 Last Admin: 09/13/23 09:05 Dose: 1 units Insulin Glargine (Lantus Per Unit Charge) 7 units SC DAILY [facility]; Protocol Stop: 10/09/23 08:59 Last Admin: 09/13/23 09:04 Dose: 7 units Lactobacillus Acidophilus (Advanced Probiotic 1250 Mg Capsule) 2 cap PO BID [facility] Stop: 10/06/23 08:59 Last Admin: 09/13/23 08:29 Dose: Not Given Latanoprost (Latanoprost 0.005% Op Soln 2.5 Ml Btl) 1 drops OPB HS [facility] Stop: 10/06/23 20:59 Last Admin: 09/12/23 21:40 Dose: 1 drops Levalbuterol HCl (Levalbuterol 1.25 Mg/3 Ml Neb) 1.25 mg INH Q4H PRN PRN Reason: WHEEZING/SOB/COUGH Stop: 10/05/23 23:48 Metoprolol Succinate (Metoprolol Succ 50mg Ext Rel Tab) 50 mg PO BID17 [facility] Stop: 10/12/23 16:59 Last Admin: 09/13/23 08:24 Dose: 50 mg Miscellaneous (Carbohydrates For Hypoglycemia ) 15 - 30 gm PO UD PRN PRN Reason: Hypoglycemia Protocol Stop: 10/06/23 00:17 Miscellaneous Information (Pharmacy Glycemic Mgmt Consult) 1 each N/A UD PRN PRN Reason: Consult Stop: 10/06/23 01:39 Montelukast Sodium (Montelukast Sodium 10 Mg Tablet) 10 mg PO QAM [facility] Stop: 10/06/23 08:59 Last Admin: 09/13/23 08:24 Dose: 10 mg Multivitamins/Minerals (Cerovite Adv Formula Tab) 1 tab PO QAM [facility] Stop: 10/06/23 08:59 Last Admin: 09/13/23 08:24 Dose: 1 tab Nitroglycerin (Nitroglycerin Sl 0.4 Mg/Tab Tab) 0.4 mg SL Q5M PRN PRN Reason: Chest Pain Stop: 10/05/23 23:48 Nystatin (Nystatin Susp 500,000 U/5 Ml Udc) 5 ml PO QID [facility] Stop: 09/20/23 16:59 Last Admin: 09/13/23 08:23 Dose: 5 ml Ondansetron HCl (Ondansetron Inj 2 Mg/Ml 2 Ml Vial) 4 mg IV Q6H PRN PRN Reason: Nausea Stop: 10/05/23 23:48 Last Admin: 09/06/23 15:18 Dose: 4 mg Oxybutynin Chloride (Oxybutynin Chloride Xl 5 Mg Tabcr) [facility] Stop: 10/06/23 08:59 Last Admin: 09/13/23 08:24 Dose: 10 mg Pantoprazole Sodium (Pantoprazole 40 Mg Tab) 40 [facility] Stop: 10/06/23 08:59 Last Admin: 09/13/23 08:24 Dose: 40 mg Rosuvastatin Calcium (Rosuvastatin Calcium 20 Mg Tab) 20 mg PO [facility] Stop: 10/06/23 20:59 Last Admin: 09/11/23 21:12 Dose: 20 mg Triamcinolone Acetonide (Triamcinolone Acet 0.1% Cr 15 Gm Tube) 1 appln TOP BID PRN PRN Reason: AFFECTED AREA Stop: 10/05/23 23:48 Vitamin D (Cholecalciferol 1,000 Units 25 Mcg Tab) 2,000 units PO [facility] Stop: 10/06/23 08:59 Last Admin: 09/13/23 08:25 Dose: 2,000 units (1) Sepsis Sepsis type: sepsis due to unspecified organism Sepsis acute organ dysfunction status: with acute organ dysfunction Severe sepsis acute organ dysfunction type: encephalopathy Severe sepsis shock status: without septic shock Qualified Code(s): A41.9 - Sepsis, unspecified organism; R65.20 - Severe sepsis without septic shock; G93.41 - Metabolic encephalopathy
[2023-09-13] MEDS: predniSONE 5 MG TAB PO SCH (10:43)
--- NOTE | 2023-09-13 12:39 | Cardiology Progress Note ---
Date of Service September 13, 2023 Assessment & Plan (1) Sepsis: (2) Paroxysmal atrial fibrillation: (3) Takotsubo cardiomyopathy: (4) NSTEMI (non-ST elevated myocardial infarction): (5) Acute renal failure: (6) Acute metabolic encephalopathy: Plan 78-year-old female admitted with acute sepsis and encephalopathy, paroxysmal atrial fibrillation with RVR, and echocardiographic evidence of severe LV systolic dysfunction most consistent with stress-induced (Takotsubo) cardio myopathy. Follow-up TTE 09/10/23 revealed improvement in LVEF, now 35-40%. Continue metoprolol tartrate 25 mg 3 times daily and IV heparin. Candidacy for long-term anticoagulation to be determined. Patient currently sinus rhythm with PACs. Reassess LV systolic function and 2 to 3 days. Continue clopidogrel and rosuvastatin as ordered. Amlodipine remains on hold due to intermittent borderline, hypotension. 09/12/2023 Treatment of sepsis and underlying encephalopathy per primary service No further atrial fibrillation but risk for further episodes Will change metoprolol to tartrate to metoprolol succinate 50 mg twice per day Repeat echocardiogram 2 to 4 weeks 09/13/2023 Plan as above. Tolerating increased dose of metoprolol succinate 50 mg twice per day, will continue Admission and Anticipated Discharge Date Admission Date: September 05, 2023 Subjective Patient seen, chart reviewed and personally examined Telemetry sinus rhythm with frequent atrial ectopy, short runs of atrial tachycardia, no atrial fibrillation. No significant pauses or bradycardia arrhythmias Tolerating increased dose of beta-rhoda with metoprolol succinate 50 mg twice per day Review of Systems Review of Systems: All systems reviewed & are unremarkable except as noted in Subjective Physical Exam Constitutional: + ill appearing; no acute distress Pale complexion Neck: trachea midline, no thyromegaly Respiratory: normal respiratory effort; no respiratory distress Auscultation: + diminished lung sounds (Bases bilateral); no rales, no rhonchi and no wheezes Cardiovascular: Rate/Rhythm: regular rate and regular rhythm Heart Sounds: normal S1, normal S2 and + murmur (1/6 systolic ejection murmur) Vessels: no JVD and no carotid bruit Extremities: no edema Gastrointestinal (Abdomen): Inspection/Auscultation: normal bowel sounds; abdomen not distended Percussion/Palpation: abdomen soft; abdomen nontender, no guarding and abdomen not rigid Neurologic: CN's II-XI intact bilaterally and moves all extremities Results & Data Vital Signs (Past 12 Hours) Vital Signs Temp Pulse Pulse Resp BP Pulse Ox O2 Del Method 09/13/23 12:33 84 09/13/23 11:07 36.5 C 76 18 135/66 93 Room Air 09/13/23 08:06 36.4 C L 73 19 151/71 H 97 Room Air 09/13/23 03:00 36.5 C 81 16 152/79 H 96 Room Air Laboratory Results Laboratory Results - last 24 hr 09/12/23 09/12/23 09/12/23 16:33 16:35 20:10 WBC RBC Hgb Hct MCV MCH MCHC RDW Std Deviation RDW Coeff of Xochitl Plt Count MPV Immature Gran % (Auto) Neut % (Auto) Lymph % (Auto) Mills % (Auto) Eos % (Auto) Baso % (Auto) Neut # (Auto) Lymph # (Auto) Mills # (Auto) Eos # (Auto) Baso # (Auto) Immature Gran # (Auto) Heparin Anti-Xa, Unfract Sodium Potassium Chloride Carbon Dioxide Anion Gap BUN Creatinine Est Cr Clr Drug Dosing Est GFR ( Amer) Est GFR (Non-Af Amer) BUN/Creatinine Ratio Glucose POC Glucose 305 H* 102 H 126 H Calcium Ionized Calcium Phosphorus Magnesium Total Bilirubin AST ALT Alkaline Phosphatase Total Protein Albumin Globulin Albumin/Globulin Ratio 09/13/23 09/13/23 09/13/23 05:41 08:05 11:56 WBC 13.75 H RBC 3.08 L Hgb 8.6 L Hct 26.3 L MCV 85.4 MCH 27.9 MCHC 32.7 RDW Std Deviation 55.5 H RDW Coeff of Xochitl 18.7 H Plt Count 204 MPV 8.9 L Immature Gran % (Auto) 2.7 Neut % (Auto) 89.3 Lymph % (Auto) 4.1 Mills % (Auto) 3.6 Eos % (Auto) 0.0 Baso % (Auto) 0.3 Neut # (Auto) 12.29 H Lymph # (Auto) 0.56 L Mills # (Auto) 0.49 Eos # (Auto) 0.00 Baso # (Auto) 0.04 Immature Gran # (Auto) 0.37 H Heparin Anti-Xa, Unfract 0.42 Sodium 139 Potassium 4.1 Chloride 110 H Carbon Dioxide 22 Anion Gap 7 BUN 55 H Creatinine 1.46 H Est Cr Clr Drug Dosing 28.7 Est GFR ( Amer) 40.1 Est GFR (Non-Af Amer) 34.6 BUN/Creatinine Ratio 37.7 H Glucose 135 H POC Glucose 138 H 150 H Calcium 8.8 Ionized Calcium 1.37 H Phosphorus 3.2 Magnesium 2.0 Total Bilirubin 0.4 AST 498 H ALT 291 H Alkaline Phosphatase 186 H Total Protein 5.1 L Albumin 2.7 L Globulin 2.4 L Albumin/Globulin Ratio 1.1 (1) Sepsis Sepsis type: sepsis due to unspecified organism Sepsis acute organ dysfunction status: with acute organ dysfunction Severe sepsis acute organ dysfunction type: encephalopathy Severe sepsis shock status: without septic shock Qualified Code(s): A41.9 - Sepsis, unspecified organism; R65.20 - Severe sepsis without septic shock; G93.41 - Metabolic encephalopathy (5) Acute renal failure Acute renal failure type: unspecified Qualified Code(s): N17.9 - Acute kidney failure, unspecified
[2023-09-13] MEDS: LATANOPROST 0.005% OP SOLN 2.5 ML BTL OPB SCH (19:45)
[2023-09-14 06:39] LABS: Hematocrit (blood only) 30.4 % (37.0-47.0); Hemoglobin 9.9 g/dl (12.0-16.0); Mean Corpuscular Hgb Conc 32.6 g/dL (32.0-36.0); Mean Corpuscular Volume 86.1 fL (80.0-100.0); Mean Platelet Volume 8.7 fL (9.4-12.4); Nucleated RBC # (auto) 0.02 K/uL (0.00-0.12); Nucleated RBC % (auto) 0.2 %; Platelet Count 230 K/uL (130-400); RDW Coefficient of Variation 19.1 % (11.5-14.5); RDW Standard Deviation 57.1 fL (36.4-46.3); Red Blood Count 3.53 M/uL (4.20-5.40); White Blood Count 11.72 K/ul (4.8-10.8)
[2023-09-14 07:14] LABS: Albumin Globulin Ratio 1.1 (0.9-2); BUN Creatinine Ratio 38.8 (10-20); Bilirubin,Total 0.5 mg/dl (0.2-1.0); Calcium 9.6 mg/dl (8.6-10.3); Creatinine Clr Calc Pharmacy 27.9 ml/min; Est GFR (African American) 39.8 ml/min; Est GFR (Non-African American) 34.3 ml/min; Globulin 2.7 gm/dl (2.5-4.0); Potassium 3.9 mmol/L (3.5-5.1); Total Protein 5.7 gm/dl (6.0-8.3)
[2023-09-14 07:22] LABS: ANTI-Xa, UFH(UnfractionatedHep < 0.10 IU/ml (0.3-0.7)
--- NOTE | 2023-09-14 07:26 | Hospitalist Progress Note ---
Date of Service September 14, 2023 Assessment & Plan (1) Sepsis: Plan: 75-year-old female with past med history significant for type 2 diabetes, CKD stage III, hyperlipidemia, chronic drug-induced interstitial lung disorders, asthma mild persistent, COPD, chronic right-sided heart failure, hypertension, history of CAD, history of CVA, mild aortic stenosis, paroxysmal atrial fibrillation, moderate protein calorie malnutrition, slow transit constipation, vitamin B-12 and thiamine deficiency, history of esophageal dysphagia, GERD, gout, osteoarthritis, primary open-angle glaucoma, polyneuropathy, rheumatoid arthritis involving multiple sites with positive rheumatoid factor, depression, history of C. difficile, history of COVID, history of fever of unknown origin admitted with fever and lethargy. Sepsis, POA-resolved R lung pneumonia-treated Acute metabolic encephalopathy-resolved Metabolic encephalopathy likely due to sepsis-resolved Neurology consult- -MRI brain without contrast: per neurology no acute concerns -EEG suggestive of encephalopathy Patient presented with fever and lethargy for 2 days. Patient reported sore throat and hoarse voice CT chest- infiltrate on right lung field; small bilateral pleural effusion CT abdomen and pelvisno acute finding CT headno acute finding Urine cultureno growth Blood cultureno growth to date She received 2 days of cefepime and vancomycin followed by 5 days of ertapenem for a full antibiotic course and to treat pneumonia. She is oxygenating well on room air. Repeat chest imaging in 4 weeks time. She has been resuscitated from a sepsis standpoint and this is resolved. She remains afebrile Acute systolic heart failure 2/2 Takotsubo cardiomyopathy NSTEMI History of CAD Paroxysmal atrial fibrillation EKG on admission with atrial fibrillation with diffuse ST depression. High sensitive troponin elevated to 1190; downtrended Echocardiogram 09/06 showed EF of 20 to 25%; large wall motion abnormality with severe hypokinesis to dyskinesis of mid and apical left ventricular myocardial wall. Repeat echo 09/10 showed improved EF of 35-40% Currently on IV heparin. Continue GDMT per cardiology Toprol XL discontinued; switched over to metoprolol tartrate Continue on Plavix and statin. Hematochezia-(new 09/14) Abdominal pain Started 09/14 with dark red stool. Heparin was already stopped and plavix held Iron supplement held. Pain across abdomen. Given elevated LFTs which may have been related to shock liver, it is possible she may have an ischemic colitis from recent sepsis Will repeat CT a/p with IV contrast At this point, H/H is stable and her vitals are stable which is reassuring. Elevated liver enzymes Liver Mass Liver enzyme levels increased over hospitalization time poss 2/2 sepsis vs medication side effect. US liver ordered -concerning for increasing liver mass when compared to lesion noted on imaging from Jul 2022, radiology recommending tissue sampling CT abd/pelvis from 09/06 with no noted mass, consider confirming read with radiologist reading that CT GI consult placed- appreciate further recs -recommending outpt IR biopsy on discharge, not likely the cause of her elevated LFTs and procedure at this time is not hairston given her illness Holding home statin with liver enzyme elevation LFTs are stable, cont to trend daily. Possible DKA, resolved Sugars in 300s and had anion gap on admission Initially placed on insulin drip. Not on any medications at home. reports that her blood glucose has been around 110s to 120s most of the time but recently elevated to 200s Continue on subcu insulin. Pharmacy glycemic consult ANDRESSA on CKD stage III, likely prerenal due to sepsis vs cardiorenal Hyponatremia likely due to ANDRESSA Presented with creatinine 1.7 Creatinine elevated to 2, improving slowly with gentle hydration Improved to 1.46 today with a baseline of 1. Continue to encourage p.o. intake. This is likely related to ATN from sepsis and is expected to improve with additional time History of asthma History of COPD History of drug-induced interstitial lung disorders Chronic, stable. Continue supportive care as needed. Continue home inhalers History of CVA chronic, stable. Uncertain if any residual deficits. On statin and Plavix History of C. difficile C diff gene negative at this time Previously started on po vancomycin by ID Continue home p.o. vancomycin at this time Will contact ID to ensure ok to dc vanc given pt's history -per ID ok to dc po Vanc -No diarrhea with normal BM overnight per nursing notes. History of esophageal dysphagia Speech consulted; restarting pured diet. hypertension chronic, stable. Cont current therapy. rheumatoid arthritis chronic, stable. Cont holding plaquenil. She was initially started on stress dose hydrocortisone, but is clinically improved so this will be stopped. Side effects outweigh the benefits at this point. She will be restarted on her chronic prednisone today. History of vitamin B1 and B12 deficiency Continue supplementation when more alert. depression chronic, stable. Continue duloxetine DVT prophylaxis: SCDs, chemoprophylaxis contraindicated with possibility of bleeding. Diet: DMII, pureed, nutrition consult placed. DNR/DNI I spent a total [id number] coordinating, documenting, and providing care for this patient excluding time spent in the performance of separately billed services Belkis Seymour DO [facility] Hospitalist (2) Acute heart failure with reduced ejection fraction and diastolic dysfunction: (3) ANDRESSA (acute kidney injury): (4) Atrial fibrillation with rapid ventricular response: (5) Takotsubo cardiomyopathy: (6) Heart disease: (7) HTN (hypertension): (8) NSTEMI (non-ST elevated myocardial infarction): (9) DM type 2 (diabetes mellitus, type 2): (10) Rheumatoid arthritis: Admission and Anticipated Discharge Date Admission Date: September 05, 2023 Subjective 78-year-old female admitted with acute sepsis secondary to UTI, NSTEMI, possible DKA, acute kidney injury, encephalopathy and found to have severe LV systolic dysfunction most consistent with Takotsubo cardiomyopathy. She has a h/o rheumatoid arthritis. This morning she is difficult to understand as she is a dentulous and extremely weak. She denies any pain and feels clear in her thoughts. She is answering questions appropriately, but is extremely weak and hypophonic. She is too weak to lift her body over and roll easily. She has been resuscitated from a sepsis standpoint and treated for pneumonia with a 7 day course of IV abx. No evidence of UTI on culture results. She remains in sinus rhythm. Heparin initially given for treatment of NSTEMI stopped 09/13. Pt is on chronic Plavix for secondary prevention of stroke. Floor call overnight that patient h ad a small loose dark red BM. Plavix and iron supplementation held for now. She had another large BM today that appeared dark in color as if blood were present per RN. H/H is improved and she remains hemodynamically stable. She is reporting pain across the middle of her abdomen but cannot qualify further. Physical Exam Physical Exam: CONSTITUTIONAL: WNWD, vitals as above, appears chronically ill and weak EYES: Pupils are round and equal bilaterally, normal conjunctivae, no scleral icterus ENT: external ear and nose normal, oropharynx clear, mucous membranes are dry, edentulous NECK: trachea midline RESPIRATORY: clear to auscultation bilaterally, no crackles, rales or wheezes, normal respiratory effort. Exam is limited as patient is extremely weak and unable to roll [id number] or sit up CARDIOVASCULAR: regular rate and rhythm, S1 and 2 heard without murmurs, gallops or rubs, no JVD, no peripheral edema CHEST: inspection of chest was normal GASTROINTESTINAL: soft, nontender, nondistended, no guarding MUSCULOSKELETAL: Generalized weakness, head is normocephalic and atraumatic SKIN: warm and dry NEUROLOGIC: CN 2-12 grossly intact, no sensory deficit, normal cognition, abnormal speech as patient is a dentulous with dry mouth., No tremor PSYCHIATRIC: alert cooperative and oriented, makes good eye contact when prompted. Results & Data Results & Data Vital Signs (Past 12 Hours) Vital Signs Temp Pulse Resp BP Pulse Ox O2 Del Method 09/14/23 02:43 36.6 C 53 L 18 159/67 H 98 Room Air 09/13/23 22:56 36.8 C 71 18 151/87 H 96 Room Air 09/13/23 20:00 Room Air Laboratory Results Short CBC 09/14/23 Range/Units 05:58 WBC 11.72 H (4.8-10.8) K/ul Hgb 9.9 L (12.0-16.0) g/dl Hct 30.4 L (37.0-47.0) % Plt Count 230 (130-400) K/uL BMP 09/14/23 05:58 Sodium 141 Potassium 3.9 Chloride 108 H Carbon Dioxide 26 BUN 57 H Creatinine 1.47 H Glucose 84 Calcium 9.6 Liver Function 09/14/23 Range/Units 05:58 Total Bilirubin 0.5 (0.2-1.0) mg/dl AST 460 H (13-39) U/L ALT 344 H (7-52) U/L Alkaline Phosphatase 208 H (34-104) U/L Albumin 3.0 L (3.4-5.0) gm/dl Medications Administered Current Inpatient Medications Albuterol (Albuterol Hfa 8 Gm Inhaler) 2 puffs INH Q4 PRN PRN Reason: Shortness Of Breath Stop: 10/05/23 23:48 Albuterol (Albuterol 0.083% Nebu Soln 3 Ml Vial) 2.5 mg INH DAILY PRN; Protocol PRN Reason: Shortness Of Breath Or Wheezing Stop: 10/05/23 23:48 Calamine/Phenol (Menthol-Zinc Oxide 360 Appln/120 Gm Tube) 1 appln EXT BID PRN PRN Reason: AFFECTED AREA Stop: 10/05/23 23:48 Clopidogrel Bisulfate (Clopidogrel Bisulfate 75 Mg Tab) 75 mg PO QAM [facility] Stop: 10/06/23 08:59 Last Admin: 09/13/23 08:25 Dose: 75 mg Dextrose (Dextrose 50% 50 Ml Syringe) 25 - 50 ml IV UD PRN; Protocol PRN Reason: Hypoglycemia Protocol Stop: 10/06/23 00:17 Duloxetine HCl (Duloxetine Hcl 60 Mg Cap) 60 mg PO [facility] Stop: 10/06/23 08:59 Last Admin: 09/13/23 08:25 Dose: 60 mg Ferrous Sulfate (Ferrous Sulfate 325 Mg Tab) 325 mg PO [facility] Stop: 10/06/23 08:59 Last Admin: 09/13/23 08:25 Dose: 325 mg Fluticasone/Vilanterol (Fluticasone/Vilanterol 200/25mcg 14 Puffs/Inhaler) 1 puffs INH DAILY [facility] Stop: 10/06/23 08:59 Last Admin: 09/13/23 08:26 Dose: Not Given Folic Acid (Folic Acid 1 Mg Tab) 1 mg PO [facility] Stop: 10/06/23 08:59 Last Admin: 09/13/23 08:29 Dose: 1 mg Glucagon (Glucagon For Inj 1 Mg Vial) 1 mg SQ UD PRN; Protocol PRN Reason: Hypoglycemia Protocol Stop: 10/06/23 00:17 Glucose (Glucose 10 Tab/Tube) 4 - 8 tab PO UD PRN; Protocol PRN Reason: Hypoglycemia Treatment Stop: 10/06/23 00:17 Glucose (Glucose 40% Gel 15 Gm Tube) 15 - 30 gm PO UD PRN; Protocol PRN Reason: Hypoglycemia Protocol Stop: 10/06/23 00:17 Insulin Aspart (Insulin Aspart Per Unit Charge) 0 units SC [facility]; Protocol Stop: 10/06/23 11:29 Last Admin: 09/13/23 22:01 Dose: Not Given Lactobacillus Acidophilus (Advanced Probiotic 1250 Mg Capsule) 2 cap PO BID [facility] Stop: 10/06/23 08:59 Last Admin: 09/13/23 19:47 Dose: 2 cap Latanoprost (Latanoprost 0.005% Op Soln 2.5 Ml Btl) 1 drops OPB HS [facility] Stop: 10/06/23 20:59 Last Admin: 09/13/23 19:45 Dose: 1 drops Levalbuterol HCl (Levalbuterol 1.25 Mg/3 Ml Neb) 1.25 mg INH Q4H PRN PRN Reason: WHEEZING/SOB/COUGH Stop: 10/05/23 23:48 Metoprolol Succinate (Metoprolol Succ 50mg Ext Rel Tab) 50 mg PO [id number] [facility] Stop: 10/12/23 16:59 Last Admin: 09/13/23 17:34 Dose: 50 mg Miscellaneous (Carbohydrates For Hypoglycemia ) 15 - 30 gm PO UD PRN PRN Reason: Hypoglycemia Protocol Stop: 10/06/23 00:17 Miscellaneous Information (Pharmacy Glycemic Mgmt Consult) 1 each N/A UD PRN PRN Reason: Consult Stop: 10/06/23 01:39 Montelukast Sodium (Montelukast Sodium 10 Mg Tablet) [facility] [place] Stop[facility] 10/06/23 08:59 Last Admin: 09/13/23 08:24 Dose: 10 mg Multivitamins/Minerals (Cerovite Adv Formula Tab) 1 tab PO QAM [facility] Stop: 10/06/23 08:59 Last Admin: 09/13/23 08:24 Dose: 1 tab Nitroglycerin (Nitroglycerin Sl 0.4 Mg/Tab Tab) 0.4 mg SL Q5M PRN PRN Reason: Chest Pain Stop: 10/05/23 23:48 Nystatin (Nystatin Susp 500,000 U/5 Ml Udc) 5 ml PO QID [facility] Stop: 09/20/23 16:59 Last Admin: 09/13/23 19:46 Dose: 5 ml Ondansetron HCl (Ondansetron Inj 2 Mg/Ml 2 Ml Vial) 4 mg IV Q6H PRN PRN Reason: Nausea Stop: 10/05/23 23:48 Last Admin: 09/06/23 15:18 Dose: 4 mg Oxybutynin Chloride (Oxybutynin Chloride Xl 5 Mg Tabcr) 10 mg PO QAM [facility] Stop: 10/06/23 08:59 Last Admin: 09/13/23 08:24 Dose: 10 mg Pantoprazole Sodium (Pantoprazole 40 Mg Tab) [facility] [place] Stop: 10/06/23 08:59 Last Admin: 09/13/23 08:24 Dose: 40 mg Prednisone (Prednisone 5 Mg Tab) [facility] [place] Stop: 10/13/23 10:14 Last Admin: 09/13/23 10:43 Dose: 5 mg Rosuvastatin Calcium (Rosuvastatin Calcium 20 Mg Tab) 20 mg PO [facility] Stop: 10/06/23 20:59 Last Admin: 09/11/23 21:12 Dose: 20 mg Triamcinolone Acetonide (Triamcinolone Acet 0.1% Cr 15 Gm Tube) 1 appln TOP BID PRN PRN Reason: AFFECTED AREA Stop: 10/05/23 23:48 Vitamin D (Cholecalciferol 1,000 Units 25 Mcg Tab) 2,000 units PO [facility] Stop: 10/06/23 08:59 Last Admin: 09/13/23 08:25 Dose: 2,000 units (1) Sepsis Sepsis acute organ dysfunction status: with acute organ dysfunction Sepsis type: sepsis due to unspecified organism Severe sepsis acute organ dysfunction type: encephalopathy Severe sepsis shock status: without septic shock Qualified Code(s): A41.9 - Sepsis, unspecified organism; R65.20 - Severe sepsis without septic shock; G93.41 - Metabolic encephalopathy
[2023-09-14] MEDS: ADVANCED PROBIOTIC 1250 MG CAPSULE PO SCH ×2 (09:34→19:58)
[2023-09-14] MEDS: DULoxetine HCL 60 MG CAP PO SCH (09:34)
[2023-09-14] MEDS: INSULIN ASPART PER UNIT CHARGE SC SCH ×4 (09:34→20:39)
[2023-09-14] MEDS: FOLIC ACID 1 MG TAB PO SCH (09:35)
[2023-09-14] MEDS: predniSONE 5 MG TAB PO SCH (09:35)
[2023-09-14] MEDS: METOPROLOL SUCC 50MG EXT REL TAB PO SCH ×2 (09:35→17:35)
[2023-09-14] MEDS: PANTOprazole 40 MG TAB PO SCH (09:36)
[2023-09-14] MEDS: CEROVITE ADV FORMULA TAB PO SCH (09:36)
[2023-09-14] MEDS: CHOLECALCIFEROL 1,000 UNITS 25 MCG TAB PO SCH (09:36)
[2023-09-14] MEDS: MONTELUKAST SODIUM 10 MG TABLET PO SCH (09:36)
[2023-09-14] MEDS: FLUTICASONE/VILANTEROL 200/25MCG 14 PUFFS/INHALER INH SCH (09:37)
[2023-09-14] MEDS: NYSTATIN SUSP 500,000 U/5 ML UDC PO SCH (09:37)
--- NOTE | 2023-09-14 10:56 | Nephrology Progress Note ---
Date of Service September 14, 2023 Assessment & Plan (1) ANDRESSA (acute kidney injury): Plan: Patient with acute renal failure due to ischemic ATN in setting of sepsis and low EF. Patient with Takotsubo type cardiomyopathy with a EF of 20%. She is nonoliguric. She has made 650 mL of urine today. Creatinine down to 1.47 -Okay for maintenance fluids if hypotensive -Okay to give bolus of Lasix if worsening respiratory status although it appears to be mainly COPD -Daily BMP -Monitor input output (2) Hyponatremia: Plan: This is due to renal failure and CHF. Sodium now normal today. Patient is not drinking much. Will continue to monitor daily sodium. Admission and Anticipated Discharge Date Admission Date: September 05, 2023 Subjective Seen for acute kidney injury. She feels little better today. Liver enzymes are still high. No shortness of breath. She is making urine. Review of Systems 2 Review of Systems: All other systems were reviewed and negative except as noted in HPI Physical Exam 2 Physical Exam: General exam: Appears comfortable, no acute distress HEENT: Pupils are equal and reactive to light Neck: No JVD, neck is supple trachea is midline Respiratory system: wheezing bilaterally. Gastrointestinal: Abdomen is soft, non distended, non tender, bowel sounds are present CVS: Regular rate and rhythm. No murmurs, rubs or gallops Musculoskeletal: No joint or muscle tenderness Extremities: Non tender, no edema, peripheral pulses are present Neuro: Oriented, no tremors, no focal neurological deficits Skin: No rashes Results & Data Vital Signs (Past 12 Hours) Vital Signs Temp Pulse Resp BP Pulse Ox O2 Del Method 09/14/23 07:42 36.5 C 77 19 143/72 H 92 Room Air 09/14/23 02:43 36.6 C 53 L 18 159/67 H 98 Room Air 09/13/23 22:56 36.8 C 71 18 151/87 H 96 Room Air Laboratory Results 09/14/23 05:58 09/14/23 05:58 WBC 11.72 H RBC 3.53 L MCV 86.1 MCH 28.0 MCHC 32.6 RDW Std Deviation 57.1 H RDW Coeff of Xochitl 19.1 H Plt Count 230 MPV 8.7 L Albumin 3.0 L
--- NOTE | 2023-09-14 12:05 | Cardiology Progress Note ---
Date of Service September 14, 2023 Assessment & Plan (1) Sepsis: (2) Paroxysmal atrial fibrillation: (3) Takotsubo cardiomyopathy: (4) NSTEMI (non-ST elevated myocardial infarction): (5) Acute renal failure: (6) Acute metabolic encephalopathy: Plan 78-year-old female admitted with acute sepsis and encephalopathy, paroxysmal atrial fibrillation with RVR, and echocardiographic evidence of severe LV systolic dysfunction most consistent with stress-induced (Takotsubo) cardiomy opathy. Follow-up TTE 09/10/23 revealed improvement in LVEF, now 35-40%. Continue metoprolol tartrate 25 mg 3 times daily and IV heparin. Candidacy for long-term anticoagulation to be determined. Patient currently sinus rhythm with PACs. Reassess LV systolic function and 2 to 3 days. Continue clopidogrel and rosuvastatin as ordered. Amlodipine remains on hold due to intermittent borderline, hypotension. 09/12/2023 Treatment of sepsis and underlying encephalopathy per primary service No further atrial fibrillation but risk for further episodes Will change metoprolol to tartrate to metoprolol succinate 50 mg twice per day Repeat echocardiogram 2 to 4 weeks 09/13/2023 Plan as above. Tolerating increased dose of metoprolol succinate 50 mg twice per day, will continue 09/14/2023 Hemodynamically stable. Initially admitted with acute sepsis, encephalopathy and findings suggestive of acute stress-induced cardiomyopathy. Renal function has improved but remains impaired Hepatic enzyme elevation still present Plan: Continue metoprolol succinate 50 mg twice per day Will repeat echocardiogram in a.m. Add isosorbide dinitrate 10 mg twice daily. Renal function limits use of LILI/Entresto. If LV systolic function still impaired on echo add hydralazine to her regimen versus cautious trial of LILI inhibitor Admission and Anticipated Discharge Date Admission Date: September 05, 2023 Subjective Patient seen and personally examined Denies any acute complaint Blood pressure mildly elevated Telemetry with sinus with atrial ectopy, no pauses or tachyarrhythmia. Review of Systems Review of Systems: All systems reviewed & are unremarkable except as noted in Subjective Physical Exam Constitutional: + ill appearing; no acute distress Neck: trachea midline, no thyromegaly Respiratory: normal respiratory effort; no respiratory distress Auscultation: + diminished lung sounds (Bases bilateral); no rales, no rhonchi and no wheezes Cardiovascular: Rate/Rhythm: regular rate and regular rhythm Heart Sounds: normal S1, normal S2 and + murmur (1/6 systolic ejection murmur) Vessels: no JVD and no carotid bruit Extremities: no edema Gastrointestinal (Abdomen): Inspection/Auscultation: normal bowel sounds; abdomen not distended Percussion/Palpation: abdomen soft; abdomen nontender, no guarding and abdomen not rigid Neurologic: CN's II-XI intact bilaterally and moves all extremities Results & Data Vital Signs (Past 12 Hours) Vital Signs Temp Pulse Resp BP Pulse Ox O2 Del Method 09/14/23 11:17 36.7 C 75 19 145/58 H 96 Room Air 09/14/23 07:42 36.5 C 77 19 143/72 H 92 Room Air 09/14/23 02:43 36.6 C 53 L 18 159/67 H 98 Room Air Laboratory Results Laboratory Results - last 24 hr 09/13/23 09/13/23 09/14/23 16:10 19:58 05:58 WBC 11.72 H RBC 3.53 L Hgb 9.9 L Hct 30.4 L MCV 86.1 MCH 28.0 MCHC 32.6 RDW Std Deviation 57.1 H RDW Coeff of Xochitl 19.1 H Plt Count 230 MPV 8.7 L Absolute Nucleated RBC 0.02 Nucleated RBC % (auto) 0.2 Heparin Anti-Xa, Unfract < 0.10 L Sodium 141 Potassium 3.9 Chloride 108 H Carbon Dioxide 26 Anion Gap 7 BUN 57 H Creatinine 1.47 H Est Cr Clr Drug Dosing 27.9 Est GFR ( Amer) 39.8 Est GFR (Non-Af Amer) 34.3 BUN/Creatinine Ratio 38.8 H Glucose 84 POC Glucose 164 H 120 H Calcium 9.6 Total Bilirubin 0.5 AST 460 H ALT 344 H Alkaline Phosphatase 208 H Total Protein 5.7 L Albumin 3.0 L Globulin 2.7 Albumin/Globulin Ratio 1.1 09/14/23 09/14/23 08:31 11:52 WBC RBC Hgb Hct MCV MCH MCHC RDW Std Deviation RDW Coeff of Xochitl Plt Count MPV Absolute Nucleated RBC Nucleated RBC % (auto) Heparin Anti-Xa, Unfract Sodium Potassium Chloride Carbon Dioxide Anion Gap BUN Creatinine Est Cr Clr Drug Dosing Est GFR ( Amer) Est GFR (Non-Af Amer) BUN/Creatinine Ratio Glucose POC Glucose 92 137 H Calcium Total Bilirubin AST ALT Alkaline Phosphatase Total Protein Albumin Globulin Albumin/Globulin Ratio (1) Sepsis Sepsis type: sepsis due to unspecified organism Sepsis acute organ dysfunction status: with acute organ dysfunction Severe sepsis acute organ dysfunction type: encephalopathy Severe sepsis shock status: without septic shock Qualified Code(s): A41.9 - Sepsis, unspecified organism; R65.20 - Severe sepsis without septic shock; G93.41 - Metabolic encephalopathy (5) Acute renal failure Acute renal failure type: unspecified Qualified Code(s): N17.9 - Acute kidney failure, unspecified
[2023-09-14] MEDS: ISOSORBIDE DINITRATE 10 MG TAB PO SCH ×2 (12:50→17:35)
--- NOTE | 2023-09-14 13:36 | Pharmacy Report ---
Pharmacy Glycemic Short Note 2 - Date of Service September 14, 2023 - Glycemic Short BSG Results (Last 24 hours): 09/13/23 09/13/23 09/14/23 16:10 19:58 05:58 Glucose 84 POC Glucose 164 H 120 H 09/14/23 09/14/23 08:31 11:52 Glucose POC Glucose 92 137 H OUTPATIENT ANTIDIABETIC REGIMEN: * None HbA1c: 6.3% (09/06/23) ASSESSMENT: 09/14/23: * BSGs have been well-controlled over past 72 hours * Steroids changed from hydrocortisone 50 mg IV q12h to prednisone 5 mg PO daily starting yesterday * Fasting BSG of 92 mg/dL this morning - will hold basal today until we get a better sense of how patient responds to change in steroids 09/10/23: * BSGs remain well-controlled with very little insulin, ranging 118-146 mg/dL yesterday * Received 6 units of insulin (5 units of basal and 1 units of correctional bolus) * Fasting BSG of 148 mg/dL this morning, will increase basal today * Do not anticipate any other changes to glycemic regimen at this time 09/08/23: * BSGs well-controlled yesterday, ranging 89-125 mg/dL * Received 19 units of insulin (4 units of bolus and 15 units of basal) * Antibiotics de-escalated to ertapenem monotherapy * Remains on hydrocortisone 50 mg IV q6h and heparin infusion (mixed in dextrose) * Basal dose decreased yesterday and fasting BSG continues to trend down to 104 mg/dL * Will reduce basal insulin today 09/06/23: * 77 year old F receiving vancomycin/ertapenem/acyclovir for treatment of sepsis, meningitis r/o. Lumbar puncture planned for today. Cardio consult, continuing with gentle hydration. Fluids D51/2NS + KCl - changed to NS +KCl. On Heparin drip. * Hyperglycemic, on hydrocortisone IV Q6H, A1c 6.9% on 05/09/23, updated A1c pending * Patient started on insulin drip/DKA protocol, running at 4.2units/hr this morning, AG closed, euglycemic, OK to transition to SQ insulin. * Overlap drip x 2.5hrs with basal, NovoLog for correction and carb coverage when diet resumed. NPO at this time. PLAN FOR INPATIENT GLYCEMIC CONTROL: * Basal insulin * Hold * Reassess in AM * Bolus insulin * NovoLog per scale ACHS or Q6hrs while NPO * Goal Range: Low 110 mg/dL - High 140 mg/dL * Correction Factor: 35 mg/dL/unit * Nutritional / Prandial insulin per carb ratio of 1 unit per 12 grams CHO consumed
[2023-09-14] MEDS: PANTOprazole 40 MG in SYRINGE 0 ML IV SCH (19:57)
[2023-09-14] MEDS: LATANOPROST 0.005% OP SOLN 2.5 ML BTL OPB SCH (19:59)
[2023-09-14] MEDS ORDERED: OPTIRAY 320 500ml IV ONE (21:15)
--- NOTE | 2023-09-14 22:59 | CT Scan Report ---
Exam(s): CT ABDOMEN + PELVIS With Contrast IV Amt: 90ml EXAM: CT Abdomen and Pelvis With Intravenous Contrast CLINICAL HISTORY: Reason for exam: abd pain with blood per rectum. TECHNIQUE: Axial computed tomography images of the abdomen and pelvis with intravenous contrast. Automated exposure control was utilized for the study. A dose lowering technique was utilized adhering to the principles of ALARA. CONTRAST: Patient received 90ml of IV contrast COMPARISON: CT abdomen pelvis to March 31, 2022 FINDINGS: Lung bases: See below. Pleural space: Small bilateral pleural effusions with subjacent airspace consolidations, correlate for aspiration pneumonia. ABDOMEN: Liver: Indeterminate low-attenuation lesion in the RIGHT hepatic lobe that measures approximately 5.4 x 5.6 cm. This is new when compared to March 31, 2022. If this is a new finding, recommend hepatic MRI. Gallbladder and bile ducts: Unremarkable. No calcified stones. No ductal dilation. Pancreas: Unremarkable. No mass. No ductal dilation. Spleen: Unremarkable. No splenomegaly. Adrenals: Unremarkable. No mass. Kidneys and ureters: Renal cysts. No hydronephrosis. Stomach and bowel: Diverticulosis, without acute diverticulitis. No small bowel obstruction. No free intraperitoneal air. PELVIS: Appendix: No findings to suggest acute appendicitis. Bladder: Decompression and bladder contains a Colon catheter. Reproductive: Unremarkable as visualized. ABDOMEN and PELVIS: Intraperitoneal space: Unremarkable. No free air. No significant fluid collection. Bones/joints: Degenerative changes of the spine. No acute fracture. No dislocation. Soft tissues: Unremarkable. Vasculature: Atherosclerotic changes of the aorta. No abdominal aortic aneurysm. Lymph nodes: Unremarkable. No enlarged lymph nodes. IMPRESSION: 1. No hydronephrosis. 2. Small bilateral pleural effusions with subjacent airspace consolidations, correlate for aspiration pneumonia. 3. Indeterminate low-attenuation lesion in the RIGHT hepatic lobe that measures approximately 5.4 x 5.6 cm. New when compared to March 31, 2022. If this is a new finding, recommend hepatic MRI. 4. Diverticulosis, without acute diverticulitis. No small bowel obstruction. No free intraperitoneal air. Electronically signed by: Jaron Good MD 09/14/23 22:58 PM
[2023-09-15 06:37] LABS: Hematocrit (blood only) 27.2 % (37.0-47.0); Mean Corpuscular Hemoglobin 28.6 pg (25.0-34.0); Mean Corpuscular Hgb Conc 33.1 g/dL (32.0-36.0); Mean Corpuscular Volume 86.3 fL (80.0-100.0); Mean Platelet Volume 8.8 fL (9.4-12.4); Nucleated RBC # (auto) 0.02 K/uL (0.00-0.12); Nucleated RBC % (auto) 0.3 %; Platelet Count 165 K/uL (130-400); RDW Coefficient of Variation 18.9 % (11.5-14.5); RDW Standard Deviation 57.6 fL (36.4-46.3); Red Blood Count 3.15 M/uL (4.20-5.40); White Blood Count 6.71 K/ul (4.8-10.8)
[2023-09-15 06:55] LABS: Albumin Globulin Ratio 1.2 (0.9-2); Albumin Level 2.7 gm/dl (3.4-5.0); BUN Creatinine Ratio 46.3 (10-20); Bilirubin,Total 0.4 mg/dl (0.2-1.0); Calcium 9.1 mg/dl (8.6-10.3); Est GFR (African American) 50.3 ml/min; Est GFR (Non-African American) 43.4 ml/min; Globulin 2.3 gm/dl (2.5-4.0); Potassium 4.1 mmol/L (3.5-5.1)
[2023-09-15] MEDS: INSULIN ASPART PER UNIT CHARGE SC SCH ×4 (09:38→20:03)
[2023-09-15] MEDS: METOPROLOL SUCC 50MG EXT REL TAB PO SCH ×2 (09:39→17:25)
[2023-09-15] MEDS: MONTELUKAST SODIUM 10 MG TABLET PO SCH (09:39)
[2023-09-15] MEDS: predniSONE 5 MG TAB PO SCH (09:39)
[2023-09-15] MEDS: DULoxetine HCL 60 MG CAP PO SCH (09:39)
[2023-09-15] MEDS: CHOLECALCIFEROL 1,000 UNITS 25 MCG TAB PO SCH (09:39)
[2023-09-15] MEDS: CEROVITE ADV FORMULA TAB PO SCH (09:39)
[2023-09-15] MEDS: FOLIC ACID 1 MG TAB PO SCH (09:39)
[2023-09-15] MEDS: ISOSORBIDE DINITRATE 10 MG TAB PO SCH ×2 (09:39→17:25)
[2023-09-15] MEDS: ADVANCED PROBIOTIC 1250 MG CAPSULE PO SCH ×2 (09:40→19:46)
[2023-09-15] MEDS: FLUTICASONE/VILANTEROL 200/25MCG 14 PUFFS/INHALER INH SCH (09:40)
--- NOTE | 2023-09-15 10:38 | Gastrointestinal Consultation ---
Date of Consultation September 15, 2023 Assessment & Plan (1) Rectal bleedin78 year old female w/ history of afib, NSTEMI, T2DM, CKD-3, hyperlipidemia, chronic drug-induced interstitial lung disorders, asthma mild persistent, COPD, chronic right-sided heart failure, hypertension, history of CAD, history of CVA, mild aortic stenosis, paroxysmal atrial fibrillation, moderate protein calorie malnutrition, slow transit constipation, vitamin B-12 and thiamine deficiency, history of esophageal dysphagia, GERD, gout, osteoarthritis, primary open-angle glaucoma, polyneuropathy, rheumatoid arthritis involving multiple sites with positive rheumatoid factor, depression, history of C. difficile on presents with fever and lethargy - admitted with NSTEMI, stress-induced cardiomyopathy and PNA w/ sepsis - GI asked to evaluate for rectal bleeding. C.diff negative, history of recurrent c.diff, CT without any apparent colitis or ischemic colitis findings, bleeding appears to have resolved. Recommend to hold AC if able for a total of 72 hours. Trend H&H. If bleeding returns, will need to consider diagnostic endoscopic evaluation at that time. However, she is high- risk for these procedures given the event of her current admission. IV PPI BID for now. Regarding her elevated LFTs, these do seem to be improving, Tbili normal. Can continue to watch. Consider liver serology with CMV, EBV and acute hepatitis panel. Agree w/ plan for IR evaluation of liver lesion. We appreciate assistance in the management of any serological abnormality and corrections to include: hemoglobin >7, INR <2, platelets >50,000, potassium levels >3.5 but <5.3, and sodium levels within 5 points of the reference range prior to endoscopic evaluation. Supervising Physician Co-Signing Physician Notes I performed a history and physical examination of the patient today, including specifically on physical exam - soft abdomen. I have discussed the patient's management with the advanced practitioner. Please refer to the nurse practitioner's note for the documented findings and plan of care. No bleeding since yesterday. Had a colonoscopy in 2017 which showed diverticulosis. H/H stable, was even lower few days ago. Possible LGIB, hemorrhoidal, ischemic colitis, diverticular. Recommend: Observation for now. PPI. May consider scope only if clinically deteriorates. Needs MRI Liver to evaluate the liver lesion though this was not seen on on carol or recent scans. Plan for elective OP EGD/colonoscopy once cleared by Cardiology in view of her recent ACS. Recall GI if needed. History of Present Illness Reason for Consultation: rectal bleeding Requesting Physician: Lion Attending Physician: Belkis Seymour DO History of Present Illness 78 year old female w/ history of afib, NSTEMI, T2DM, CKD-3, hyperlipidemia, ch ronic drug-induced interstitial lung disorders, asthma mild persistent, COPD, chronic right-sided heart failure, hypertension, history of CAD, history of CVA, mild aortic stenosis, paroxysmal atrial fibrillation, moderate protein calorie malnutrition, slow transit constipation, vitamin B-12 and thiamine deficiency, history of esophageal dysphagia, GERD, gout, osteoarthritis, primary open-angle glaucoma, polyneuropathy, rheumatoid arthritis involving multiple sites with positive rheumatoid factor, depression, history of C. difficile on presents with fever and lethargy - admitted with NSTEMI, stress-induced cardiomyopathy and PNA w/ sepsis - GI asked to evaluate for rectal bleeding. Pt was seen and evaluated, chart reviewed. Family at bedside who aids in history. Notes from GI standpoint, was feeling well until yesterday. At that time she noted 2 bloody BMs followed by one black BM. She had had generalized abd cramping. This does seem worse in the upper abdomen. Denies nausea, vomiting. No GERD. No further BMs today. HGB trend: 12.8 --> 11.4 -->10.9 --> 9.4 --> 8.6 --> 9.9 --> 9 BUN 56/MOTOR [employer] 1.2 C.Diff negative 09/08 Tbili normal AST 56 --> 202 --> 235 --> 326 --> 498 --> 460 --> 352 ALT 32 --> 87 --> 108 --> 177--> 291 --> 344 -->311 ALKP 116 --> 165 --> 156 --> 165 --> 186 --> 208 --> 188 CTAP 2022: . No hydronephrosis. Small bilateral pleural effusions with subjac ent airspace consolidations, correlate for aspiration pneumonia. Indeterminate low- attenuation lesion in the RIGHT hepatic lobe that measures approximately 5.4 x 5.6 cm. New when compared to March 31, 2022. If this is a new finding, recommend hepatic MRI. Diverticulosis, without acute diverticulitis. No small bowel obstruction. No free intraperitoneal air. ABD US 2022: The hepatic parenchyma is heterogeneous and mildly echogenic. There is an ill-defined 4.9 cm mass noted within the right hepatic lobe likely correlating with the 2 cm lesion described on the 08/13/2022 study. Findings co uld be further evaluated with tissue sampling. Cholecystectomy. CTAP 2022: No acute or focal abnormalities are noted of the unenhanced liver, spleen or pancreas. The gallbladder has been removed. There is no hydronephrosis or perinephric fluid. No evidence of bowel obstruction. No abnormal fluid or regional inflammatory reaction. Allergies Allergy/AdvReac Type Severity Reaction Status Date / Time Influenza Virus Vaccines Allergy Severe FLOWN TO Verified 09/05/23 20:43 [facility]. ciprofloxacin Allergy Intermediate RASH/BLEEDI Verified 09/05/23 20:43 NG methotrexate Allergy Intermediate RASH/PNEUMO Verified 09/05/23 20:43 [facility] Penicillins Allergy Intermediate hives Verified 09/05/23 20:43 ranitidine Allergy Intermediate rash Verified 09/05/23 20:43 Home Medications Medication Instructions Recorded Confirmed Type duloxetine 30 mg capsule,delayed 60 mg PO QAM 07/20/18 09/05/23 History release folic acid 1 mg tablet 1 mg PO QAM 07/20/18 09/05/23 History prednisone 5 mg tablet 5 mg PO QAM 07/20/18 09/05/23 History albuterol sulfate 90 mcg/actuation 2 puff inhalation Q4 PRN Shortness 03/07/19 09/05/23 History aerosol inhaler (ProAir HFA) Of Breath cyanocobalamin (vitamin B-12) 2,000 mcg PO 3XWK 03/07/19 09/05/23 History 1,000 mcg tablet (Vitamin B-12) vit A 300 mcg-C 200 mg-E 27 1 tab PO QAM 03/07/19 09/05/23 History mg-lutein 2 mg and minerals tablet (Ocuvite with Lutein) [id number] 8 mg-folic 400 1 tab PO QAM 11/12/19 09/05/23 History mcg-K 50 mcg-lutein 300 mcg tablet (Centrum Silver Women) montelukast 10 mg tablet 10 mg PO QAM 11/15/20 09/05/23 History latanoprost 0.005 % eye drops 1 drp OPB HS 01/03/21 09/05/23 History solifenacin 10 mg tablet (Vesicare) 10 mg PO QAM 08/22/21 09/05/23 History acetaminophen 325 mg tablet 325 mg PO DIRECTED PRN Pain 03/21/22 09/05/23 History fluticasone furoate 200 1 inh inhalation DAILY 03/21/22 09/05/23 History mcg-vilanterol 25 mcg/dose inhalation powder (Breo Ellipta) thiamine HCl (vitamin B1) 100 mg 50 mg PO DAILY 03/21/22 09/05/23 History tablet vancomycin 125 mg capsule 125 mg PO Q6H 03/21/22 09/05/23 History clopidogrel 75 mg tablet 75 mg PO QAM #30 tabs 04/01/22 09/05/23 Rx Lactobacillus rhamnosus GG 5 5 cell PO BID 08/06/22 09/05/23 History billion cell oral powder packet ([employer]) albuterol sulfate 2.5 mg/3 mL 2.5 mg inhalation DIRECTED PRN 08/06/22 09/05/23 History (0.083 %) solution for nebulization Shortness Of Breath Or Wheezing cholecalciferol (vitamin D3) 50 50 mcg PO QAM 08/06/22 09/05/23 History mcg (2,000 unit) capsule (Vitamin D3) ferrous sulfate 325 mg (65 mg 325 mg PO QAM 08/06/22 09/05/23 History iron) tablet menthol 0.44 %-zinc oxide 20.6 % 1 applic topical BID PRN AFFECTED 08/06/22 09/05/23 History topical ointment (Calmoseptine) AREA pantoprazole 40 mg tablet,delayed 40 mg PO QAM 08/06/22 09/05/23 History release (Protonix) triamcinolone acetonide 0.1 % 1 applic topical BID PRN AFFECTED 08/06/22 09/05/23 History topical cream AREA hydroxychloroquine 200 mg tablet 200 mg PO HS 30 days #30 tabs 08/31/22 09/05/23 Rx metoprolol succinate 25 mg 25 mg PO DAILY 05/08/23 09/05/23 History tablet,extended release 24 hr rosuvastatin 10 mg tablet 20 mg PO HS 05/08/23 09/05/23 History amlodipine 5 mg tablet 5 mg PO QAM 09/05/23 09/05/23 History levalbuterol HCl 1.25 mg/3 mL 1.25 mg inhalation Q4H PRN 09/05/23 09/05/23 History solution for nebulization WHEEZING/SOB/COUGH Patient History Medical History Wrist fracture, left History of stroke Thrush, oral Hyponatremia Nontraumatic rectus hematoma NSTEMI (non-ST elevated myocardial infarction) UTI (urinary tract infection) Immunosuppressed status DVT prophylaxis CKD (chronic kidney disease), stage III Acute hyponatremia Abnormal ECG Elevated troponin Syncope NSTEMI (non-ST elevated myocardial infarction) Visual hallucinations Hyponatremia RSV infection Recurrent Clostridium difficile diarrhea Chronic steroid use prednisone daily Gout H/O interstitial lung disease "drug induced- methotrexate " Osteoarthritis Glaucoma Peripheral neuropathy Dyslipidemia Rheumatoid arthritis "on chronic steroids" COPD (chronic obstructive pulmonary disease) inhalers prn Depression CKD (chronic kidney disease), stage III Gastroparesis DM type 2 (diabetes mellitus, type 2) GERD (gastroesophageal reflux disease) Migraines DJD of right shoulder NSTEMI (non-ST elevated myocardial infarction) (08/06/13) Asthma inhalers prn HTN (hypertension) Heart disease Surgical History History of tooth extraction all top teeth History of esophagogastroduodenoscopy (EGD) H/O cardiac catheterization "cath 07/2013- single vessel CAD involving apical segment LAD, medical management indicated" S/P total knee arthroplasty "left knee" History of hysterectomy H/O colonoscopy S/P rotator cuff repair "right shoulder" S/P removal of ovarian cyst Family History Father Family history of diabetes mellitus Mother Heart disease Hypertension Other No family history of adverse response to anesthesia Social History Smoking Status: Never smoker Second Hand Exposure: No; Do You Dip or Chew Tobacco: No; Tobacco Cessation Education Requested by Patient: No Hx Alcohol Use: No Hx Substance Use: No Preferred Language: [place]ankan Communication Ability: Effective Community Outreach Manager Required: No Beliefs That Will Affect Care: None marital status: Current Living Situation: Spouse current occupational status: retired current occupation: Former [employer] Other Information That Helps Us Care for You: No Feels Safe at Home: Yes Safety Concerns: Feels Safe At This Time Assistive Devices: Bedside Commode, Scooter/Electric Scooter, Walker and Wheelchair Assistive Devices Comment: Pt. currently on BiPAP and O2, not while at home Review of Systems Review of Systems: All systems reviewed & are unremarkable except as noted in HPI & below Physical Exam Constitutional: WD/WN, vitals as above chronically ill appearing female in no acute distress Neck: trachea midline; no tracheal deviation Respiratory: normal respiratory effort Cardiovascular: Rate/Rhythm: regular rate + murmur Gastrointestinal (Abdomen): normal bowel sounds, soft, nontender, no hepatosplenomegaly Skin: no rashes, warm and dry Results & Data Vital Signs (Past 12 Hours) Vital Signs Temp Pulse Pulse Resp BP Pulse Ox O2 Del Method 09/15/23 07:41 36.4 C L 80 19 176/65 H 96 Room Air 09/15/23 03:20 36.3 C L 82 18 148/83 H 98 Room Air 09/15/23 01:29 76 09/14/23 22:50 36.8 C 78 16 167/67 H 98 Room Air Laboratory Results 09/15/23 09/15/23 09/14/23 Range/Units 07:44 05:52 20:45 WBC 6.71 (4.8-10.8) K/ul RBC 3.15 L (4.20-5.40) M/uL Hgb 9.0 L (12.0-16.0) g/dl Hct 27.2 L (37.0-47.0) % MCV 86.3 (80.0-100.0) fL MCH 28.6 (25.0-34.0) pg MCHC 33.1 (32.0-36.0) g/dL RDW Std Deviation 57.6 H (36.4-46.3) fL RDW Coeff of Xochitl 18.9 H (11.5-14.5) % Plt Count 165 (130-400) K/uL MPV 8.8 L (9.4-12.4) fL Absolute Nucleated RBC 0.02 (0.00-0.12) K/uL Nucleated RBC % (auto) 0.3 % Sodium 138 (136-145) mmol/L Potassium 4.1 (3.5-5.1) mmol/L Chloride 107 (98-107) mmol/L Carbon Dioxide 26 (21-32) mmol/L Anion Gap 5 (3-11) BUN 56 H (6-23) mg/dl Creatinine 1.21 H (0.6-1.2) mg/dl Est Cr Clr Drug Dosing 34.0 ml/min Est GFR ( Amer) 50.3 ml/min Est GFR (Non-Af Amer) 43.4 ml/min BUN/Creatinine Ratio 46.3 H (10-20) Glucose 115 H (70-99(Fasting)) mg/dl POC Glucose 131 H (70-99) mg/dl Calcium 9.1 (8.6-10.3) mg/dl Total Bilirubin 0.4 (0.2-1.0) mg/dl AST 352 H (13-39) U/L ALT 311 H (7-52) U/L Alkaline Phosphatase 188 H (34-104) U/L Total Protein 5.0 L (6.0-8.3) gm/dl Albumin 2.7 L (3.4-5.0) gm/dl Globulin 2.3 L (2.5-4.0) gm/dl Albumin/Globulin Ratio 1.2 (0.9-2) Stool Occult Bld Scrn Positive A (Negative) 09/14/23 09/14/23 Range/Units 20:23 11:52 WBC (4.8-10.8) K/ul RBC (4.20-5.40) M/uL Hgb (12.0-16.0) g/dl Hct (37.0-47.0) % MCV (80.0-100.0) fL MCH (25.0-34.0) pg MCHC (32.0-36.0) g/dL RDW Std Deviation (36.4-46.3) fL RDW Coeff of Xochitl (11.5-14.5) % Plt Count (130-400) K/uL MPV (9.4-12.4) fL Absolute Nucleated RBC (0.00-0.12) K/uL Nucleated RBC % (auto) % Sodium (136-145) mmol/L Potassium (3.5-5.1) mmol/L Chloride (98-107) mmol/L Carbon Dioxide (21-32) mmol/L Anion Gap (3-11) BUN (6-23) mg/dl Creatinine (0.6-1.2) mg/dl Est Cr Clr Drug Dosing ml/min Est GFR ( Amer) ml/min Est GFR (Non-Af Amer) ml/min BUN/Creatinine Ratio (10-20) Glucose (70-99(Fasting)) mg/dl POC Glucose 252 H 137 H (70-99) mg/dl Calcium (8.6-10.3) mg/dl Total Bilirubin (0.2-1.0) mg/dl AST (13-39) U/L ALT (7-52) U/L Alkaline Phosphatase (34-104) U/L Total Protein (6.0-8.3) gm/dl Albumin (3.4-5.0) gm/dl Globulin (2.5-4.0) gm/dl Albumin/Globulin Ratio (0.9-2) Stool Occult Bld Scrn (Negative)
[2023-09-15] MEDS: PANTOprazole 40 MG in SYRINGE 0 ML IV SCH ×2 (11:54→19:46)
--- NOTE | 2023-09-15 12:40 | Nephrology Progress Note ---
Date of Service September 15, 2023 Assessment & Plan (1) ANDRESSA (acute kidney injury): Plan: acute renal failure due to ischemic ATN in setting of sepsis and low EF. Patient with Takotsubo type cardiomyopathy with a EF of 20%. She is nonoliguric. She has made 650 mL of urine today. Creatinine down to 1.2; peak creatinine 2.2 on 09/10. fluctuating baseline > may be close to new baseline -Okay for maintenance fluids if hypotensive -Okay to give bolus of Lasix if worsening respiratory status although it appears to be mainly COPD -Daily BMP -Monitor input output -OP hydroxychloroquine on hold but prednisone continued > seems apporpriate >>>may be at risk next 24-36 hrs for recurrent ANDRESSA after IV contrast recently though so far doing well PRELIMINARY NEPHRO D/C RECOMMENDATIONS -hospital d/c appt w/ me in [facility] [place] 2-4 wks after d/c w/ BMP, urine and sodium osmolality, ACR, rd urine sodium, UACM to be done about 3 days before appt; labs to be ordered by nephro nurse -also check bmp at [facility] hospital d/c visit (2) Hyponatremia: Plan: This is due to renal failure and CHF. Sodium now normal today. Patient is not drinking much. Will continue to monitor daily sodium. not currently on diuretics adn this is OK Admission and Anticipated Discharge Date Admission Date: September 05, 2023 Subjective had obligate IV contrast last evening for CT a/p; no acute process; pt denies abd pain to me currently at PM rounds eval but also seems to be confused. denies edema, sob, n/v Review of Systems 2 Review of Systems: All systems reviewed & are unremarkable except as noted in Subjective Physical Exam 2 Constitutional: well developed and well nourished Eyes: EOM intact bilaterally ENMT: Ears: no external ear abnormality Nose: no external nose abnormality Mouth: + dry oral mucous membranes Neck: no nuchal rigidity Respiratory: normal respiratory effort Auscultation: + diminished lung sounds Cardiovascular: RRR, no murmur, no edema Gastrointestinal (Abdomen): Inspection/Auscultation: normal bowel sounds P ercussion/Palpation: abdomen soft; abdomen nontender Musculoskeletal: Extremities: + abnormal strength Skin: no rashes, warm and dry Neurologic: ocrnejo, fluent speech, no tremor Psychiatric: Orientation: oriented to person and cooperative Results & Data Vital Signs (Past 12 Hours) Vital Signs Temp Pulse Pulse Resp BP Pulse Ox O2 Del Method 09/15/23 11:42 36.6 C 56 L 19 149/55 H 98 Room Air 09/15/23 07:41 36.4 C L 80 19 176/65 H 96 Room Air 09/15/23 03:20 36.3 C L 82 18 148/83 H 98 Room Air 09/15/23 01:29 76 Laboratory Results 09/15/23 05:52 09/15/23 05:[address] a/p w/ IV con 1. No hydronephrosis. 2. Small bilateral pleural effusions with subjacent airspace consolidations, correlate for aspiration pneumonia. 3. Indeterminate low-attenuation lesion in the RIGHT hepatic lobe that measures approximately 5.4 x 5.6 cm. New when compared to March 31, 2022. If this is a new finding, recommend hepatic MRI. 4. Diverticulosis, without acute diverticulitis. No small bowel obstruction. No free intraperitoneal air.
[2023-09-15] MEDS: LATANOPROST 0.005% OP SOLN 2.5 ML BTL OPB SCH (19:46)
--- NOTE | 2023-09-15 22:13 | Hospitalist Progress Note ---
Date of Service September 15, 2023 Assessment & Plan (1) Sepsis: Plan: 75-year-old female with past med history significant for type 2 diabetes, CKD stage III, hyperlipidemia, chronic drug-induced interstitial lung disorders, asthma mild persistent, COPD, chronic right-sided heart failure, hypertension, history of CAD, history of CVA, mild aortic stenosis, paroxysmal atrial fibrillation, moderate protein calorie malnutrition, slow transit constipation, vitamin B-12 and thiamine deficiency, history of esophageal dysphagia, GERD, gout, osteoarthritis, primary open-angle glaucoma, polyneuropathy, rheumatoid arthritis involving multiple sites with positive rheumatoid factor, depression, history of C. difficile, history of COVID, history of fever of unknown origin admitted with fever and lethargy. Sepsis, POA-resolved R lung pneumonia-treated Acute metabolic encephalopathy-resolved Metabolic encephalopathy likely due to sepsis-resolved Neurology consult- -MRI brain without contrast: per neurology no acute concerns -EEG suggestive of encephalopathy Patient presented with fever and lethargy for 2 days. Patient reported sore throat and hoarse voice CT chest- infiltrate on right lung field; small bilateral pleural effusion CT abdomen and pelvisno acute finding CT headno acute finding Urine cultureno growth Blood cultureno growth to date She received 2 days of cefepime and vancomycin followed by 5 days of ertapenem for a full antibiotic course and to treat pneumonia. She is oxygenating well on room air. Repeat chest imaging in 4 weeks time. She has been resuscitated from a sepsis standpoint and this is resolved. She remains afebrile Acute systolic heart failure 2/2 Takotsubo cardiomyopathy NSTEMI History of CAD Paroxysmal atrial fibrillation EKG on admission with atrial fibrillation with diffuse ST depression. High sensitive troponin elevated to 1190; downtrended Echocardiogram 09/06 showed EF of 20 to 25%; large wall motion abnormality with severe hypokinesis to dyskinesis of mid and apical left ventricular myocardial wall. Repeat echo 09/10 showed improved EF of 35-40% Currently on IV heparin. Continue GDMT per cardiology Toprol XL discontinued; switched over to metoprolol tartrate Continue on Plavix and statin.--plavix on hold 2/2 hematochezia Hematochezia-(new 09/14) Abdominal pain Started 09/14 with dark red stool. Heparin was already stopped and plavix held Iron supplement held. Pain across abdomen is resolved today. Given elevated LFTs which may have been related to shock liver, it is possible she may have an ischemic colitis from recent sepsis that is improving repeat CT a/p with IV contrast unremarkable for new findings. At this point, H/H is stable and her vitals are stable which is reassuring. Per GI, clinical picture is not consistent with colitis and bleeding has resolved. Cont holding off on blood thinners for 72 hours and trend H/H. If bleeding returns, consider endoscopic evaluation at that time. Cont IV PPI for now. Elevated liver enzymes Liver Mass Liver enzyme levels increased over hospitalization time poss 2/2 sepsis vs medication side effect. US liver ordered -concerning for increasing liver mass when compared to lesion noted on imaging from Jul 2022, radiology recommending tissue sampling CT abd/pelvis from 09/06 with no noted mass, consider confirming read with radiologist reading that CT GI consult placed- appreciate further recs -recommending outpt IR biopsy on discharge, not likely the cause of her elevated LFTs and procedure at this time is not hairston given her illness Holding home statin with liver enzyme elevation LFTs continue to improve. Possible DKA, resolved Sugars in 300s and had anion gap on admission Initially placed on insulin drip. Not on any medications at home. reports that her blood glucose has been around 110s to 120s most of the time but recently elevated to 200s Continue on subcu insulin. Pharmacy glycemic consult ANDRESSA on CKD stage III, likely prerenal due to sepsis vs cardiorenal Hyponatremia likely due to ANDRESSA Presented with creatinine 1.7 Creatinine elevated to 2, improving slowly with gentle hydration Improved to 1.21 today with a baseline of 1. Continue to encourage p.o. intake. This is likely related to ATN from sepsis and is expected to improve with additional time History of asthma History of COPD History of drug-induced interstitial lung disorders Chronic, stable. Continue supportive care as needed. Continue home inhalers History of CVA chronic, stable. Uncertain if any residual deficits. On statin and Plavix History of C. difficile C diff gene negative at this time Previously started on po vancomycin by ID Continue home p.o. vancomycin at this time Will contact ID to ensure ok to dc vanc given pt's history -per ID ok to dc po Vanc -No diarrhea with normal BM overnight per nursing notes. History of esophageal dysphagia Speech consulted; restarting pured diet. hypertension chronic, stable. Cont current therapy. rheumatoid arthritis chronic, stable. Cont holding plaquenil. She was initially started on stress dose hydrocortisone, but is clinically improved so this will be stopped. Side effects outweigh the benefits at this point. She will be restarted on her chronic prednisone today. History of vitamin B1 and B12 deficiency Continue supplementation when more alert. depression chronic, stable. Continue duloxetine DVT prophylaxis: SCDs, chemoprophylaxis contraindicated with possibility of bleeding. Diet: DMII, pureed, nutrition consult placed. DNR/DNI I spent a total [id number] coordinating, documenting, and providing care for this patient excluding time spent in the performance of separately billed servi lise Seymour DO [facility] Hospitalist (2) Acute heart failure with reduced ejection fraction and diastolic dysfunction: (3) ANDRESSA (acute kidney injury): (4) Atrial fibrillation with rapid ventricular response: (5) Takotsubo cardiomyopathy: (6) Heart disease: (7) HTN (hypertension): (8) NSTEMI (non-ST elevated myocardial infarction): (9) DM type 2 (diabetes mellitus, type 2): (10) Rheumatoid arthritis: Admission and Anticipated Discharge Date Admission Date: September 05, 2023 Subjective 78-year-old female admitted with acute sepsis secondary to UTI, NSTEMI, possible DKA, acute kidney injury, encephalopathy and found to have severe LV systolic dysfunction most consistent with Takotsubo cardiomyopathy. She has a h/o rheumatoid arthritis. This morning she is difficult to understand as she is a dentulous and extremely weak. She denies any pain and feels clear in her thoughts. She is answering questions appropriately, but is extremely weak and hypophonic. She is too weak to lift her body over and roll easily. She has been resuscitated from a sepsis standpoint and treated for pneumonia with a 7 day course of IV abx. No evidence of UTI on culture results. She remains in sinus rhythm. denies abdominal pain repeat CT reviewed with patient and with no acute changes no hematochezia today remains off plavix appears stronger in voice and patient reports feeling somewhat stronger I tried to contact by phone but was unsuccessful in connecting. Physical Exam Physical Exam: CONSTITUTIONAL: WNWD, vitals as above, appears chronically ill EYES: normal conjunctivae, no scleral icterus ENT: external ear and nose normal, oropharynx clear, mucous membranes are dry, edentulous NECK: trachea midline RESPIRATORY: clear to auscultation bilaterally, no crackles, rales or wheezes, normal respiratory effort. Exam is limited as patient is extremely weak and unable to roll [id number] or sit up CARDIOVASCULAR: regular rate and rhythm, S1 and 2 heard without murmurs, gallops or rubs, no JVD, no peripheral edema CHEST: inspection of chest was normal GASTROINTESTINAL: soft, nontender, nondistended, no guarding MUSCULOSKELETAL: Generalized weakness, head is normocephalic and atraumatic SKIN: warm and dry NEUROLOGIC: CN 2-12 grossly intact, no sensory deficit, normal cognition, abnormal speech as patient is a dentulous with dry mouth., No tremor PSYCHIATRIC: alert cooperative and oriented, makes good eye contact when prompted. Results & Data Results & Data Vital Signs (Past 12 Hours) Vital Signs Temp Pulse Pulse Resp BP Pulse Ox O2 Del Method 09/15/23 20:00 Room Air 09/15/23 19:00 36.4 C L 71 20 125/54 L 95 Room Air 09/15/23 16:34 74 09/15/23 15:31 36.4 C L 74 19 159/92 H 98 Room Air 09/15/23 11:42 36.6 C 56 L 19 149/55 H 98 Room Air Laboratory Results Short CBC 09/15/23 Range/Units 05:52 WBC 6.71 (4.8-10.8) K/ul Hgb 9.0 L (12.0-16.0) g/dl Hct 27.2 L (37.0-47.0) % Plt Count 165 (130-400) K/uL BMP 09/15/23 05:52 Sodium 138 Potassium 4.1 Chloride 107 Carbon Dioxide 26 BUN 56 H Creatinine 1.21 H Glucose 115 H Calcium 9.1 Liver Function 09/15/23 Range/Units 05:52 Total Bilirubin 0.4 (0.2-1.0) mg/dl AST 352 H (13-39) U/L ALT 311 H (7-52) U/L Alkaline Phosphatase 188 H (34-104) U/L Albumin 2.7 L (3.4-5.0) gm/dl Medications Administered Current Inpatient Medications Albuterol (Albuterol Hfa 8 Gm Inhaler) 2 puffs INH Q4 PRN PRN Reason: Shortness Of Breath Stop: 10/05/23 23:48 Albuterol (Albuterol 0.083% Nebu Soln 3 Ml Vial) 2.5 mg INH DAILY PRN; Protocol PRN Reason: Shortness Of Breath Or Wheezing Stop: 10/05/23 23:48 Calamine/Phenol (Menthol-Zinc Oxide 360 Appln/120 Gm Tube) 1 appln EXT BID PRN PRN Reason: AFFECTED AREA Stop: 10/05/23 23:48 Clopidogrel Bisulfate (Clopidogrel Bisulfate 75 Mg Tab) 75 mg PO QAM [facility] Stop: 10/06/23 08:59 Last Admin: 09/13/23 08:25 Dose: 75 mg Dextrose (Dextrose 50% 50 Ml Syringe) 25 - 50 ml IV UD PRN; Protocol PRN Reason: Hypoglycemia Protocol Stop: 10/06/23 00:17 Duloxetine HCl (Duloxetine Hcl 60 Mg Cap) [facility] [place] Stop: 10/06/23 08:59 Last Admin: 09/15/23 09:39 Dose: 60 mg Ferrous Sulfate (Ferrous Sulfate 325 Mg Tab) 325 mg PO QAM [facility] Stop: 10/06/23 08:59 Last Admin: 09/13/23 08:25 Dose: 325 mg Fluticasone/Vilanterol (Fluticasone/Vilanterol 200/25mcg 14 Puffs/Inhaler) 1 puffs INH DAILY [facility] Stop: 10/06/23 08:59 Last Admin: 09/15/23 09:40 Dose: Not Given Folic Acid (Folic Acid 1 Mg Tab) 1 mg PO QAM [facility] Stop: 10/06/23 08:59 Last Admin: 09/15/23 09:39 Dose: 1 mg Glucagon (Glucagon For Inj 1 Mg Vial) 1 mg SQ UD PRN; Protocol PRN Reason: Hypoglycemia Protocol Stop: 10/06/23 00:17 Glucose (Glucose 10 Tab/Tube) 4 - 8 tab PO UD PRN; Protocol PRN Reason: Hypoglycemia Treatment Stop: 10/06/23 00:17 Glucose (Glucose 40% Gel 15 Gm Tube) 15 - 30 gm PO UD PRN; Protocol PRN Reason: Hypoglycemia Protocol Stop: 10/06/23 00:17 Pantoprazole Sodium 40 mg/ (Syringe) 10 mls @ 5 mls/min IV BID [facility] Stop: 10/14/23 20:59 Last Admin: 01/02/24 19:46 Dose: 5 mls/min Insulin Aspart (Insulin Aspart Per Unit Charge) 0 units SC ACHS [facility]; Protocol Stop: 10/06/23 11:29 Last Admin: 09/15/23 20:03 Dose: 1 units Isosorbide Dinitrate (Isosorbide Dinitrate 10 Mg Tab) 10 mg PO BID@0900,1800 [facility] Stop: 10/14/23 12:14 Last Admin: 09/15/23 17:25 Dose: 10 mg Lactobacillus Acidophilus (Advanced Probiotic 1250 Mg Capsule) 2 cap PO BID [facility] Stop: 10/06/23 08:59 Last Admin: 09/15/23 19:46 Dose: 2 cap Latanoprost (Latanoprost 0.005% Op Soln 2.5 Ml Btl) 1 drops OPB HS [facility] Stop: 10/06/23 20:59 Last Admin: 09/15/23 19:46 Dose: 1 drops Levalbuterol HCl (Levalbuterol 1.25 Mg/3 Ml Neb) 1.25 mg INH Q4H PRN PRN Reason: WHEEZING/SOB/COUGH Stop: 10/05/23 23:48 Metoprolol Succinate (Metoprolol Succ 50mg Ext Rel Tab) 50 mg PO BID17 [facility] Stop: 10/12/23 16:59 Last Admin: 09/15/23 17:25 Dose: 50 mg Miscellaneous (Carbohydrates For Hypoglycemia ) 15 - 30 gm PO UD PRN PRN Reason: Hypoglycemia Protocol Stop: 10/06/23 00:17 Miscellaneous Information (Pharmacy Glycemic Mgmt Consult) 1 each N/A UD PRN PRN Reason: Consult Stop: 10/06/23 01:39 Montelukast Sodium (Montelukast Sodium 10 Mg Tablet) 10 mg PO QAM [facility] Stop: 10/06/23 08:59 Last Admin: 09/15/23 09:39 Dose: 10 mg Multivitamins/Minerals (Cerovite Adv Formula Tab) 1 tab PO QAM [facility] Stop: 10/06/23 08:59 Last Admin: 09/15/23 09:39 Dose: 1 tab Nitroglycerin (Nitroglycerin Sl 0.4 Mg/Tab Tab) 0.4 mg SL Q5M PRN PRN Reason: Chest Pain Stop: 10/05/23 23:48 Ondansetron HCl (Ondansetron Inj 2 Mg/Ml 2 Ml Vial) 4 mg IV Q6H PRN PRN Reason: Nausea Stop: 10/05/23 23:48 Last Admin: 09/06/23 15:18 Dose: 4 mg Oxybutynin Chloride (Oxybutynin Chloride Xl 5 Mg Tabcr) [facility] [place] Stop: 10/06/23 08:59 Last Admin: 09/13/23 08:24 Dose: 10 mg Prednisone (Prednisone 5 Mg Tab) 5 mg PO [facility] Stop: 10/13/23 10:14 Last Admin: 09/15/23 09:39 Dose: 5 mg Rosuvastatin Calcium (Rosuvastatin Calcium 20 Mg Tab) 20 mg PO [facility] Stop: 10/06/23 20:59 Last Admin: 09/11/23 21:12 Dose: 20 mg Triamcinolone Acetonide (Triamcinolone Acet 0.1% Cr 15 Gm Tube) 1 appln TOP BID PRN PRN Reason: AFFECTED AREA Stop: 10/05/23 23:48 Vitamin D (Cholecalciferol 1,000 Units 25 Mcg Tab) 2,000 units PO [facility] Stop: 10/06/23 08:59 Last Admin: 09/15/23 09:39 Dose: 2,000 units (1) Sepsis Sepsis type: sepsis due to unspecified organism Sepsis acute organ dysfunction status: with acute organ dysfunction Severe sepsis acute organ dysfunction type: encephalopathy Severe sepsis shock status: without septic shock Qualified Code(s): A41.9 - Sepsis, unspecified organism; R65.20 - Severe sepsis without septic shock; G93.41 - Metabolic encephalopathy
[2023-09-16 06:41] LABS: Hematocrit (blood only) 25.9 % (37.0-47.0); Hemoglobin 8.7 g/dl (12.0-16.0); Mean Corpuscular Hemoglobin 28.5 pg (25.0-34.0); Mean Corpuscular Hgb Conc 33.6 g/dL (32.0-36.0); Mean Corpuscular Volume 84.9 fL (80.0-100.0); Mean Platelet Volume 8.9 fL (9.4-12.4); Platelet Count 147 K/uL (130-400); RDW Coefficient of Variation 19.1 % (11.5-14.5); RDW Standard Deviation 55.2 fL (36.4-46.3); Red Blood Count 3.05 M/uL (4.20-5.40); White Blood Count 6.24 K/ul (4.8-10.8)
[2023-09-16 06:49] LABS: Albumin Globulin Ratio 1.1 (0.9-2); Albumin Level 2.6 gm/dl (3.4-5.0); BUN Creatinine Ratio 43.9 (10-20); Bilirubin,Total 0.4 mg/dl (0.2-1.0); Calcium 8.9 mg/dl (8.6-10.3); Creatinine Clr Calc Pharmacy 38.5 ml/min; Est GFR (African American) 58.4 ml/min; Est GFR (Non-African American) 50.4 ml/min; Globulin 2.3 gm/dl (2.5-4.0); Total Protein 4.9 gm/dl (6.0-8.3)
[2023-09-16] MEDS: predniSONE 5 MG TAB PO SCH (08:40)
[2023-09-16] MEDS: METOPROLOL SUCC 50MG EXT REL TAB PO SCH ×2 (08:40→18:09)
[2023-09-16] MEDS: ADVANCED PROBIOTIC 1250 MG CAPSULE PO SCH ×2 (08:40→19:30)
[2023-09-16] MEDS: DULoxetine HCL 60 MG CAP PO SCH (08:40)
[2023-09-16] MEDS: PANTOprazole 40 MG in SYRINGE 0 ML IV SCH ×2 (08:40→19:32)
[2023-09-16] MEDS: FOLIC ACID 1 MG TAB PO SCH (08:40)
[2023-09-16] MEDS: MONTELUKAST SODIUM 10 MG TABLET PO SCH (08:40)
[2023-09-16] MEDS: CHOLECALCIFEROL 1,000 UNITS 25 MCG TAB PO SCH (08:40)
[2023-09-16] MEDS: INSULIN ASPART PER UNIT CHARGE SC SCH ×4 (08:40→20:19)
[2023-09-16] MEDS: CEROVITE ADV FORMULA TAB PO SCH (08:40)
[2023-09-16] MEDS: ISOSORBIDE DINITRATE 10 MG TAB PO SCH ×2 (08:40→18:09)
[2023-09-16] MEDS: FLUTICASONE/VILANTEROL 200/25MCG 14 PUFFS/INHALER INH SCH (08:40)
--- NOTE | 2023-09-16 08:41 | Gastroenterology Progress Note ---
Date of Service September 16, 2023 Assessment & Plan (1) Rectal bleeding: Plan: 78 year old female w/ history of afib, NSTEMI, T2DM, CKD-3, hyperlipidemia, chronic drug-induced interstitial lung disorders, asthma mild persistent, COPD, chronic right-sided heart failure, hypertension, history of CAD, history of CVA, mild aortic stenosis, paroxysmal atrial fibrillation, moderate protein calorie malnutrition, slow transit constipation, vitamin B-12 and thiamine deficiency, history of esophageal dysphagia, GERD, gout, osteoarthritis, primary open-angle glaucoma, polyneuropathy, rheumatoid arthritis involving multiple sites with positive rheumatoid factor, depression, history of C. difficile on presents with fever and lethargy - admitted with NSTEMI, stress-induced cardiomyopathy and PNA w/ sepsis - GI asked to evaluate for rectal bleeding. C.diff negative, history of recurrent c.diff, CT without any apparent colitis or ischemic colitis findings, bleeding appears to have resolved. Recommend to hold AC if able for a total of 72 hours. Trend H&H. If bleeding returns, will need to consider diagnostic endoscopic evaluation at that time. However, she is high- risk for these procedures given the event of her current admission. IV PPI BID for 48 hours. Given no recurrence of bleeding, stable HGB, no plan for inpatient evaluation. PLease contact GI directly in the event she develops acute GI bleeding. Regarding her elevated LFTs, these do seem to be improving, Tbili normal. Can continue to watch. Consider liver serology with CMV, EBV and acute hepatitis panel. Agree w/ plan for IR evaluation of liver lesion. Recall as needed. Thank you for allowing us to participate in the care of this patient. Please call with any acute changes, questions or concerns. Please see addendum below with additional recommendation from my supervising physician. Admission and Anticipated Discharge Date Admission Date: September 05, 2023 Supervising Physician Co-Signing Physician Notes I performed a history and physical examination of the patient today, including specifically on physical exam - soft abdomen. I have discussed the patient's management with the advanced practitioner. Please refer to the nurse practitioner's note for the documented findings and plan of care. Stable H/H with no recurrent bleeding. May consider resuming her AC after few days. Please consult IR to biopsy the Liver mass. Recall GI if needed. Subjective Pt was seen and evaluated, chart reviewed. Was asleep upon entering her room, woke to her name. Denies abd pain, nausea/vomiting. No further BMs. HGB stable. Review of Systems Review of Systems: All systems reviewed & are unremarkable except as noted in HPI & below Physical Exam Constitutional: WD/WN, vitals as above Respiratory: normal respiratory effort Cardiovascular: Rate/Rhythm: regular rate and regular rhythm Gastrointestinal (Abdomen): Percussion/Palpation: abdomen soft; abdomen nontender, no guarding and abdomen not rigid Skin: no rashes, warm and dry Results & Data Vital Signs (Past 12 Hours) Vital Signs Temp Pulse Pulse Resp BP Pulse Ox O2 Del Method 09/16/23 07:22 36.7 C 65 18 116/68 94 Room Air 09/16/23 03:00 36.8 C 71 20 129/78 95 Room Air 09/15/23 23:00 36.4 C L 65 16 122/63 98 Room Air 09/15/23 22:53 66 Laboratory Results 09/16/23 09/16/23 09/15/23 Range/Units 08:09 06:00 19:58 WBC 6.24 (4.8-10.8) K/ul RBC 3.05 L (4.20-5.40) M/uL Hgb 8.7 L (12.0-16.0) g/dl Hct 25.9 L (37.0-47.0) % MCV 84.9 (80.0-100.0) fL MCH 28.5 (25.0-34.0) pg MCHC 33.6 (32.0-36.0) g/dL RDW Std Deviation 55.2 H (36.4-46.3) fL RDW Coeff of Xochitl 19.1 H (11.5-14.5) % Plt Count 147 (130-400) K/uL MPV 8.9 L (9.4-12.4) fL Sodium 137 (136-145) mmol/L Potassium 4.0 (3.5-5.1) mmol/L Chloride 104 (98-107) mmol/L Carbon Dioxide 26 (21-32) mmol/L Anion Gap 7 (3-11) BUN 47 H (6-23) mg/dl Creatinine 1.07 (0.6-1.2) mg/dl Est Cr Clr Drug Dosing 38.5 ml/min Est GFR ( Amer) 58.4 ml/min Est GFR (Non-Af Amer) 50.4 ml/min BUN/Creatinine Ratio 43.9 H (10-20) Glucose 91 (70-99(Fasting)) mg/dl POC Glucose 99 169 H (70-99) mg/dl Calcium 8.9 (8.6-10.3) mg/dl Total Bilirubin 0.4 (0.2-1.0) mg/dl AST 211 H (13-39) U/L ALT 211 H (7-52) U/L Alkaline Phosphatase 160 H (34-104) U/L Total Protein 4.9 L (6.0-8.3) gm/dl Albumin 2.6 L (3.4-5.0) gm/dl Globulin 2.3 L (2.5-4.0) gm/dl Albumin/Globulin Ratio 1.1 (0.9-2) 09/15/23 09/15/23 Range/Units 16:35 12:21 WBC (4.8-10.8) K/ul RBC (4.20-5.40) M/uL Hgb (12.0-16.0) g/dl Hct (37.0-47.0) % MCV (80.0-100.0) fL MCH (25.0-34.0) pg MCHC (32.0-36.0) g/dL RDW Std Deviation (36.4-46.3) fL RDW Coeff of Xochitl (11.5-14.5) % Plt Count (130-400) K/uL MPV (9.4-12.4) fL Sodium (136-145) mmol/L Potassium (3.5-5.1) mmol/L Chloride (98-107) mmol/L Carbon Dioxide (21-32) mmol/L Anion Gap (3-11) BUN (6-23) mg/dl Creatinine (0.6-1.2) mg/dl Est Cr Clr Drug Dosing ml/min Est GFR ( Amer) ml/min Est GFR (Non-Af Amer) ml/min BUN/Creatinine Ratio (10-20) Glucose (70-99(Fasting)) mg/dl POC Glucose 174 H 134 H (70-99) mg/dl Calcium (8.6-10.3) mg/dl Total Bilirubin (0.2-1.0) mg/dl AST (13-39) U/L ALT (7-52) U/L Alkaline Phosphatase (34-104) U/L Total Protein (6.0-8.3) gm/dl Albumin (3.4-5.0) gm/dl Globulin (2.5-4.0) gm/dl Albumin/Globulin Ratio (0.9-2)
--- NOTE | 2023-09-16 10:12 | Hospitalist Progress Note ---
Date of Service September 16, 2023 Assessment & Plan (1) Sepsis: Plan: 75-year-old female with type 2 diabetes, CKD stage III, hyperlipidemia, chronic drug-induced interstitial lung disorders, asthma mild persistent, COPD, chronic right-sided heart failure, hypertension, history of CAD, history of CVA, mild aortic stenosis, paroxysmal atrial fibrillation, moderate protein calorie malnutrition, slow transit constipation, vitamin B-12 and thiamine deficiency, history of esophageal dysphagia, GERD, gout, osteoarthritis, primary open-angle glaucoma, polyneuropathy, rheumatoid arthritis involving multiple sites with positive rheumatoid factor, depression, history of C. difficile, history of COVID, history of fever of unknown origin admitted with fever and lethargy. Sepsis, POA-resolved R lung pneumonia-treated Acute metabolic encephalopathy-resolved Metabolic encephalopathy likely due to sepsis-resolved Neurology consult- -MRI brain without contrast: per neurology no acute concerns -EEG suggestive of encephalopathy Patient presented with fever and lethargy for 2 days. Patient reported sore throat and hoarse voice CT chest- infiltrate on right lung field; small bilateral pleural effusion CT abdomen and pelvisno acute finding CT headno acute finding Urine cultureno growth Blood cultureno growth to date She received 2 days of cefepime and vancomycin followed by 5 days of ertapenem for a full antibiotic course and to treat pneumonia. She is oxygenating well on room air. Repeat chest imaging in 4 weeks time. She has been resuscitated from a sepsis standpoint and this is resolved. She remains afebrile Acute systolic heart failure 2/2 Takotsubo cardiomyopathy NSTEMI History of CAD Paroxysmal atrial fibrillation EKG on admission with atrial fibrillation with diffuse ST depression. High sensitive troponin elevated to 1190; downtrended Echocardiogram 09/06 showed EF of 20 to 25%; large wall motion abnormality with severe hypokinesis to dyskinesis of mid and apical left ventricular myocardial wall. Repeat echo 09/10 showed improved EF of 35-40% Was on IV heparin. Continue GDMT per cardiology Continue on Plavix and statin.--plavix on hold 2/2 hematochezia Continue metoprolol succinate 50 mg twice per day. Add isosorbide dinitrate 10 mg twice daily. Renal function limits use of LILI/Entresto. If LV systolic function still impaired on echo add hydralazine to her regimen versus cautious trial of LILI inhibitor Amlodipine remains on hold due to intermittent borderline, hypotension. Hematochezia-(new 09/14) Abdominal pain Started 09/14 with dark red stool. Heparin was already stopped and plavix held Iron supplement held. Pain across abdomen is resolved now. Given elevated LFTs which may have been related to shock liver, it is possible she may have an ischemic colitis from recent sepsis that is improving repeat CT a/p with IV contrast unremarkable for new findings. At this point, H/H is stable and her vitals are stable which is reassuring. Per GI, clinical picture is not consistent with colitis and bleeding has resolved. Cont holding off on blood thinners for 72 hours and trend H/H. If bleeding returns, consider endoscopic evaluation at that time. Cont IV PPI for now. Elevated liver enzymes Liver Mass Liver enzyme levels increased over hospitalization time poss 2/ sepsis vs med ication side effect. US liver ordered -concerning for increasing liver mass when compared to lesion noted on imaging from Jul 2022, radiology recommending tissue sampling CT abd/pelvis from 09/06 with no noted mass, consider confirming read with radiologist reading that CT GI consult placed- appreciate further recs -recommending outpt IR biopsy on discharge, not likely the cause of her elevated LFTs and procedure at this time is not hairston given her illness Holding home statin with liver enzyme elevation LFTs continue to improve. Possible DKA, resolved Hgb A1c 6.3% Sugars in 300s and had anion gap on admission Initially placed on insulin drip. Not on any medications at home. reports that her blood glucose has been around 110s to 120s most of the time but recently elevated to 200s Continue on subcu insulin. Pharmacy glycemic consult ANDRESSA on CKD stage III, likely prerenal due to sepsis vs cardiorenal Hyponatremia likely due to ANDRESSA Presented with creatinine 1.7 Creatinine elevated to 2, improving slowly with gentle hydration Improved to 1, which is pt's baseline. Continue to encourage p.o. intake. This is likely related to ATN from sepsis. Nephrology was consulted - NEPHRO D/C RECOMMENDATIONS -hospital d/c appt w/ Dr. Gonzalez in [place] 2-4 wks after d/c w/ B MP, urine and sodium osmolality, ACR, rd urine sodium, UACM to be done about 3 days before appt; labs to be ordered by nephro nurse -also check bmp at PCP hospital d/c visit Hyponatremia: resolved; attributed to HF. Sodium remains normal today. Patient is not drinking much. recommend continue to monitor daily bmp while in house. not currently on diuretics and this is OK History of asthma History of COPD History of drug-induced interstitial lung disorders Chronic, stable. Continue supportive care as needed. Continue home inhalers History of CVA chronic, stable. Uncertain if any residual deficits. On statin and Plavix History of C. difficile C diff gene negative at this time Previously started on po vancomycin by ID Continue home p.o. vancomycin at this time Will contact ID to ensure ok to dc vanc given pt's history -per ID ok to dc po Vanc -No diarrhea with normal BM overnight per nursing notes. History of esophageal dysphagia Speech consulted; restarting pured diet. hypertension chronic, stable. Cont current therapy. rheumatoid arthritis chronic, stable. Cont holding plaquenil. She was initially started on stress dose hydrocortisone, but is clinically improved so this was stopped. Side effects outweigh the benefits at this point. She was restarted on her chronic prednisone. History of vitamin B1 and B12 deficiency Continue supplementation when more alert. depression chronic, stable. Continue duloxetine DVT prophylaxis: SCDs, chemoprophylaxis contraindicated with possibility of bleeding. Diet: DMII, pureed, nutrition consult placed. DNR/DNI (2) Acute heart failure with reduced ejection fraction and diastolic dysfunction: (3) ANDRESSA (acute kidney injury): (4) Atrial fibrillation with rapid ventricular response: (5) Takotsubo cardiomyopathy: (6) Heart disease: (7) HTN (hypertension): (8) NSTEMI (non-ST elevated myocardial infarction): (9) DM type 2 (diabetes mellitus, type 2): (10) Rheumatoid arthritis: Admission and Anticipated Discharge Date Admission Date: September 05, 2023 Subjective 78 yo F admitted with acute sepsis secondary to pna, NSTEMI, encephalopathy and found to have severe LV systolic dysfunction most consistent with Takotsubo cardiomyopathy. She has been resuscitated from a sepsis standpoint and treated for pneumonia with a 7 day course of IV abx. No evidence of UTI on culture results. She has a h/o rheumatoid arthritis. Currently laying in bed in NAD. She is answering questions appropriately. denies abdominal pain repeat CT reviewed with patient and with no acute changes no hematochezia today remains off plavix Seen by GI - no plans for endoscopy at this time. ANDRESSA resolved - nephrology signing off. Review of Systems Review of Systems: All systems reviewed & are unremarkable except as noted in Subjective Physical Exam Physical Exam: CONSTITUTIONAL: WNWD, in NAD, appears chronically ill EYES: normal conjunctivae, no scleral icterus ENT: external ear and nose normal, oropharynx clear, edentulous NECK: supple RESPIRATORY: normal respiratory effort, + cough w/ deep inspiration, + rhonchi, no wheezing. CARDIOVASCULAR: regular rate and rhythm, S1 and 2 heard without murmurs CHEST: inspection of chest normal GASTROINTESTINAL: soft, nontender, nondistended, no guarding MUSCULOSKELETAL: Generalized weakness, head is normocephalic and atraumatic SKIN: warm and dry NEURO/PSYCH: awake, alert, oriented, coopertaive, answers simple questions appr opriately. speech fluent, moves extremities Results & Data Results & Data Vital Signs (Past 12 Hours) Vital Signs Temp Pulse Pulse Resp BP Pulse Ox O2 Del Method 09/16/23 07:22 36.7 C 65 18 116/68 94 Room Air 09/16/23 03:00 36.8 C 71 20 129/78 95 Room Air 09/15/23 23:00 36.4 C L 65 16 122/63 98 Room Air 09/15/23 22:53 66 Laboratory Results 09/16/23 09/16/23 09/15/23 Range/Units 08:09 06:00 19:58 WBC 6.24 (4.8-10.8) K/ul RBC 3.05 L (4.20-5.40) M/uL Hgb 8.7 L (12.0-16.0) g/dl Hct 25.9 L (37.0-47.0) % MCV 84.9 (80.0-100.0) fL MCH 28.5 (25.0-34.0) pg MCHC 33.6 (32.0-36.0) g/dL RDW Std Deviation 55.2 H (36.4-46.3) fL RDW Coeff of Xochitl 19.1 H (11.5-14.5) % Plt Count 147 (130-400) K/uL MPV 8.9 L (9.4-12.4) fL Sodium 137 (136-145) mmol/L Potassium 4.0 (3.5-5.1) mmol/L Chloride 104 (98-107) mmol/L Carbon Dioxide 26 (21-32) mmol/L Anion Gap 7 (3-11) BUN 47 H (6-23) mg/dl Creatinine 1.07 (0.6-1.2) mg/dl Est Cr Clr Drug Dosing 38.5 ml/min Est GFR ( Amer) 58.4 ml/min Est GFR (Non-Af Amer) 50.4 ml/min BUN/Creatinine Ratio 43.9 H (10-20) Glucose 91 (70-99(Fasting)) mg/dl POC Glucose 99 169 H (70-99) mg/dl Calcium 8.9 (8.6-10.3) mg/dl Total Bilirubin 0.4 (0.2-1.0) mg/dl AST 211 H (13-39) U/L ALT 211 H (7-52) U/L Alkaline Phosphatase 160 H (34-104) U/L Total Protein 4.9 L (6.0-8.3) gm/dl Albumin 2.6 L (3.4-5.0) gm/dl Globulin 2.3 L (2.5-4.0) gm/dl Albumin/Globulin Ratio 1.1 (0.9-2) 09/15/23 09/15/23 Range/Units 16:35 12:21 WBC (4.8-10.8) K/ul RBC (4.20-5.40) M/uL Hgb (12.0-16.0) g/dl Hct (37.0-47.0) % MCV (80.0-100.0) fL MCH (25.0-34.0) pg MCHC (32.0-36.0) g/dL RDW Std Deviation (36.4-46.3) fL RDW Coeff of Xochitl (11.5-14.5) % Plt Count (130-400) K/uL MPV (9.4-12.4) fL Sodium (136-145) mmol/L Potassium (3.5-5.1) mmol/L Chloride (98-107) mmol/L Carbon Dioxide (21-32) mmol/L Anion Gap (3-11) BUN (6-23) mg/dl Creatinine (0.6-1.2) mg/dl Est Cr Clr Drug Dosing ml/min Est GFR ( Amer) ml/min Est GFR (Non-Af Amer) ml/min BUN/Creatinine Ratio (10-20) Glucose (70-99(Fasting)) mg/dl POC Glucose 174 H 134 H (70-99) mg/dl Calcium (8.6-10.3) mg/dl Total Bilirubin (0.2-1.0) mg/dl AST (13-39) U/L ALT (7-52) U/L Alkaline Phosphatase (34-104) U/L Total Protein (6.0-8.3) gm/dl Albumin (3.4-5.0) gm/dl Globulin (2.5-4.0) gm/dl Albumin/Globulin Ratio (0.9-2) Medications Administered Current Inpatient Medications Albuterol (Albuterol Hfa 8 Gm Inhaler) 2 puffs INH Q4 PRN PRN Reason: Shortness Of Breath Stop: 10/05/23 23:48 Albuterol (Albuterol 0.083% Nebu Soln 3 Ml Vial) 2.5 mg INH DAILY PRN; Protocol PRN Reason: Shortness Of Breath Or Wheezing Stop: 10/05/23 23:48 Calamine/Phenol (Menthol-Zinc Oxide 360 Appln/120 Gm Tube) 1 appln EXT BID PRN PRN Reason: AFFECTED AREA Stop: 10/05/23 23:48 Clopidogrel Bisulfate (Clopidogrel Bisulfate 75 Mg Tab) [facility] [place] [place]: 10/06/23 08:59 Last Admin: 09/13/23 08:25 Dose: 75 mg Dextrose (Dextrose 50% 50 Ml Syringe) 25 - 50 ml IV UD PRN; Protocol PRN Reason: Hypoglycemia Protocol Stop: 10/06/23 00:17 Duloxetine HCl (Duloxetine Hcl 60 Mg Cap) 60 mg [facility] [place] Stop: 10/06/23 08:59 Last Admin: 09/16/23 08:40 Dose: 60 mg Ferrous Sulfate (Ferrous Sulfate 325 Mg Tab) 325 mg PO QAM [facility] Stop: 10/06/23 08:59 Last Admin: 09/13/23 08:25 Dose: 325 mg Fluticasone/Vilanterol (Fluticasone/Vilanterol 200/25mcg 14 Puffs/Inhaler) 1 puffs INH DAILY [facility] Stop: 10/06/23 08:59 Last Admin: 09/16/23 08:40 Dose: 1 puffs Folic Acid (Folic Acid 1 Mg Tab) 1 mg PO QAM [facility] Stop: 10/06/23 08:59 Last Admin: 09/16/23 08:40 Dose: 1 mg Glucagon (Glucagon For Inj 1 Mg Vial) 1 mg SQ UD PRN; Protocol PRN Reason: Hypoglycemia Protocol Stop: 10/06/23 00:17 Glucose (Glucose 10 Tab/Tube) 4 - 8 tab PO UD PRN; Protocol PRN Reason: Hypoglycemia Treatment Stop: 10/06/23 00:17 Glucose (Glucose 40% Gel 15 Gm Tube) 15 - 30 gm PO UD PRN; Protocol PRN Reason: Hypoglycemia Protocol Stop: 10/06/23 00:17 Pantoprazole Sodium 40 mg/ (Syringe) 10 mls @ 5 mls/min IV BID [facility] Stop: 10/14/23 20:59 Last Admin: 09/16/23 08:40 Dose: 5 mls/min Insulin Aspart (Insulin Aspart Per Unit Charge) 0 units SC ACHS [facility]; Protocol Stop: 10/06/23 11:29 Last Admin: 09/16/23 08:40 Dose: 3 units Isosorbide Dinitrate (Isosorbide Dinitrate 10 Mg Tab) 10 mg PO BID@0900,1800 [facility] Stop: 10/14/23 12:14 Last Admin: 09/16/23 08:40 Dose: 10 mg Lactobacillus Acidophilus (Advanced Probiotic 1250 Mg Capsule) 2 cap PO BID [facility] Stop: 10/06/23 08:59 Last Admin: 09/16/23 08:40 Dose: 2 cap Latanoprost (Latanoprost 0.005% Op Soln 2.5 Ml Btl) 1 drops OPB HS [facility] Stop: 10/06/23 20:59 Last Admin: 09/15/23 19:46 Dose: 1 drops Levalbuterol HCl (Levalbuterol 1.25 Mg/3 Ml Neb) 1.25 mg INH Q4H PRN PRN Reason: WHEEZING/SOB/COUGH Stop: 10/05/23 23:48 Metoprolol Succinate (Metoprolol Succ 50mg Ext Rel Tab) 50 mg PO BID17 [facility] Stop: 10/12/23 16:59 Last Admin: 09/16/23 08:40 Dose: 50 mg Miscellaneous (Carbohydrates For Hypoglycemia ) 15 - 30 gm PO UD PRN PRN Reason: Hypoglycemia Protocol Stop: 10/06/23 00:17 Miscellaneous Information (Pharmacy Glycemic Mgmt Consult) 1 each N/A UD PRN PRN Reason: Consult Stop: 10/06/23 01:39 Montelukast Sodium (Montelukast Sodium 10 Mg Tablet) 10 mg PO [facility] Stop: 10/06/23 08:59 Last Admin: 09/16/23 08:40 Dose: 10 mg Multivitamins/Minerals (Cerovite Adv Formula Tab) 1 tab [facility] [place] Stop: 10/06/23 08:59 Last Admin: 09/16/23 08:40 Dose: 1 tab Nitroglycerin (Nitroglycerin Sl 0.4 Mg/Tab Tab) 0.4 mg SL Q5M PRN PRN Reason: Chest Pain Stop: 10/05/23 23:48 Ondansetron HCl (Ondansetron Inj 2 Mg/Ml 2 Ml Vial) 4 mg IV Q6H PRN PRN Reason: Nausea Stop: 10/05/23 23:48 Last Admin: 09/06/23 15:18 Dose: 4 mg Oxybutynin Chloride (Oxybutynin Chloride Xl 5 Mg Tabcr) 10 mg PO [facility] Stop: 10/06/23 08:59 Last Admin: 09/13/23 08:24 Dose: 10 mg Prednisone (Prednisone 5 Mg Tab) 5 mg PO [facility] Stop: 10/13/23 10:14 Last Admin: 09/16/23 08:40 Dose: 5 mg Rosuvastatin Calcium (Rosuvastatin Calcium 20 Mg Tab) 20 mg PO [facility] Stop: 10/06/23 20:59 Last Admin: 09/11/23 21:12 Dose: 20 mg Triamcinolone Acetonide (Triamcinolone Acet 0.1% Cr 15 Gm Tube) 1 appln TOP BID PRN PRN Reason: AFFECTED AREA Stop: 10/05/23 23:48 Vitamin D (Cholecalciferol 1,000 Units 25 Mcg Tab) 2,000 units [facility] [place] [place] Stop: 10/06/23 08:59 Last Admin: 09/16/23 08:40 Dose: 2,000 units (1) Sepsis Sepsis acute organ dysfunction status: with acute organ dysfunction Sepsis type: sepsis due to unspecified organism Severe sepsis acute organ dysfunction type: encephalopathy Severe sepsis shock status: without septic shock Qualified Code(s): A41.9 - Sepsis, unspecified organism; R65.20 - Severe sepsis without septic shock; G93.41 - Metabolic encephalopathy
--- NOTE | 2023-09-16 11:38 | Nephrology Progress Note ---
Date of Service September 16, 2023 Assessment & Plan (1) ANDRESSA (acute kidney injury): Plan: resolved stage 1 nonoliguric acute renal failure due to ischemic ATN in setting of sepsis and low EF. Patient with Takotsubo type cardiomyopathy with a EF of 20%. She is nonoliguric. She has made 1.6 L of urine yesterday. Creatinine down to 1.1; peak creatinine 2.2 on 09/10. fluctuating baseline in 2022 w/ OP values ranging 1.1-1.5 creatinine > may be close to new baseline. did have IV contrast load 09/14/23 but so far no renal complications from this -Okay for maintenance fluids if hypotensive -Okay to give bolus of Lasix if worsening respiratory status although it appears to be mainly COPD -Daily BMP -Monitor input output -OP hydroxychloroquine on hold but prednisone continued > seems appropriate Will sign off. NEPHRO D/C RECOMMENDATIONS -hospital d/c appt w/ me in [facility] 2-4 wks after d/c w/ BMP, urine and sodium osmolality, ACR, rd urine sodium, UACM to be done about 3 days before appt; labs to be ordered by nephro nurse -also check bmp at [facility] hospital d/c visit (2) Hyponatremia: Plan: resolved; attributed to HF. Sodium remains normal today. Patient is not drinking much. recommend continue to monitor daily bmp while in house. not currently on diuretics and this is OK Admission and Anticipated Discharge Date Admission Date: September 05, 2023 Subjective no interval events clinically. at bedside. no further reports of rectal bleeding. no sob; still weak. Review of Systems 2 Review of Systems: All systems reviewed & are unremarkable except as noted in Subjective Physical Exam 2 Constitutional: well developed and well nourished Eyes: EOM intact bilaterally ENMT: Ears: no external ear abnormality Nose: no external nose abnormality Mouth: + dry oral mucous membranes Neck: no nuchal rigidity Respiratory: normal respiratory effort Auscultation: + diminished lung sounds Cardiovascular: RRR, no murmur, no edema Gastrointestinal (Abdomen): Inspection/Auscultation: normal bowel sounds P ercussion/Palpation: abdomen soft; abdomen nontender Musculoskeletal: Extremities: + abnormal strength (generalized weakness) Skin: no rashes, warm and dry Psychiatric: Orientation: oriented to person and cooperative Results & Data Vital Signs (Past 12 Hours) Vital Signs Temp Pulse Resp BP Pulse Ox O2 Del Method 09/16/23 11:01 36.6 C 65 18 99/59 L 100 Room Air 09/16/23 07:22 36.7 C 65 18 116/68 94 Room Air 09/16/23 03:00 36.8 C 71 20 129/78 95 Room Air Laboratory Results 09/16/23 06:00 09/16/23 06:00
--- NOTE | 2023-09-16 12:25 | Pharmacy Report ---
Pharmacy Glycemic Sign Off Nt - Date of Service September 16, 2023 - Assessment & Plan ASSESSMENT: * Pharmacy was consulted by Dr Gutierrez on 09/06 for glycemic control and to write orders per [facility] inpatient glycemic control protocol. * No major changed to insulin regimen for the past 72 hours * Patient has been receiving very minimal novolog correctional insulin. No basal insulin * Please see recommendations for outpatient antidiabetic regimen below. PLAN FOR INPATIENT GLYCEMIC CONTROL: No changes needed to current regimen. * No basal insulin warranted at this time * Continue NovoLog per scale ACHS/Q6hrs while NPO * Goal range = 110 - 140 mg/dl * CF = 35 mg/dl/unit * CR = 1 unit for ever 12 g CHO consumed * Pharmacy is signing off of glycemic consult and will no longer be making adjustments to inpatient regimen. Please feel free to re-consult if needed. Thank you.
[2023-09-16] MEDS: guaiFENesin 600 MG TABCR PO SCH ×2 (17:48→19:30)
[2023-09-16] MEDS: LATANOPROST 0.005% OP SOLN 2.5 ML BTL OPB SCH (19:30)
[2023-09-17 06:30] LABS: Hematocrit (blood only) 27.3 % (37.0-47.0); Hemoglobin 8.9 g/dl (12.0-16.0); Mean Corpuscular Hemoglobin 28.2 pg (25.0-34.0); Mean Corpuscular Hgb Conc 32.6 g/dL (32.0-36.0); Mean Corpuscular Volume 86.4 fL (80.0-100.0); Mean Platelet Volume 9.2 fL (9.4-12.4); Platelet Count 139 K/uL (130-400); RDW Standard Deviation 57.5 fL (36.4-46.3); Red Blood Count 3.16 M/uL (4.20-5.40); White Blood Count 6.07 K/ul (4.8-10.8)
[2023-09-17 06:42] LABS: Albumin Globulin Ratio 1.1 (0.9-2); Albumin Level 2.6 gm/dl (3.4-5.0); BUN Creatinine Ratio 41.7 (10-20); Bilirubin,Total 0.4 mg/dl (0.2-1.0); Calcium 8.6 mg/dl (8.6-10.3); Creatinine Clr Calc Pharmacy 40.3 ml/min; Est GFR (African American) 61.2 ml/min; Est GFR (Non-African American) 52.8 ml/min; Globulin 2.3 gm/dl (2.5-4.0); Magnesium 1.5 mg/dl (1.7-2.4); Phosphorus 3.7 mg/dl (2.5-4.9); Potassium 4.2 mmol/L (3.5-5.1); Total Protein 4.9 gm/dl (6.0-8.3)
[2023-09-17] MEDS ORDERED: MAGNESIUM SULFATE / D5W 1 GM/100 ML BAG IV ONE (08:09)
--- NOTE | 2023-09-17 08:09 | Hospitalist Progress Note ---
Date of Service September 17, 2023 Assessment & Plan (1) Sepsis: Plan: 75-year-old female with type 2 diabetes, CKD stage III, hyperlipidemia, chronic drug-induced interstitial lung disorders, asthma mild persistent, COPD, chronic right-sided heart failure, hypertension, history of CAD, history of CVA, mild aortic stenosis, paroxysmal atrial fibrillation, moderate protein calorie malnutrition, slow transit constipation, vitamin B-12 and thiamine deficiency, history of esophageal dysphagia, GERD, gout, osteoarthritis, primary open-angle glaucoma, polyneuropathy, rheumatoid arthritis involving multiple sites with positive rheumatoid factor, depression, history of C. difficile, history of COVID, history of fever of unknown origin admitted with fever and lethargy. Sepsis, POA-resolved R lung pneumonia-treated Acute metabolic encephalopathy-resolved Metabolic encephalopathy likely due to sepsis-resolved Neurology consult- -MRI brain without contrast: per neurology no acute concerns -EEG suggestive of encephalopathy Patient presented with fever and lethargy for 2 days. Patient reported sore throat and hoarse voice CT chest- infiltrate on right lung field; small bilateral pleural effusion CT abdomen and pelvisno acute finding CT headno acute finding Urine cultureno growth Blood culturenegative She received 2 days of cefepime and vancomycin followed by 5 days of ertapenem for a full antibiotic course and to treat pneumonia. She is oxygenating well on room air. Repeat chest imaging in 4 weeks time. She has been resuscitated from a sepsis standpoint and this is resolved. She remains afebrile Acute systolic heart failure 2/2 Takotsubo cardiomyopathy NSTEMI History of CAD Paroxysmal atrial fibrillation EKG on admission with atrial fibrillation with diffuse ST depression. High sensitive troponin elevated to 1190; downtrended Echocardiogram 09/06 showed EF of 20 to 25%; large wall motion abnormality with severe hypokinesis to dyskinesis of mid and apical left ventricular myocardial wall. Repeat echo 09/10 showed improved EF of 35-40% Was on IV heparin. Continue GDMT per cardiology Continue on Plavix and statin.--plavix on hold 2/2 hematochezia - plan to resume tmrw Continue metoprolol succinate 50 mg twice per day. Add isosorbide dinitrate 10 mg twice daily. Renal function limits use of LILI/Entresto. Takotsubo has resolved - discussed w/ cardiology. Amlodipine may be restarted if BP elevated. Hematochezia-(new 09/14) Abdominal pain Started 09/14 with dark red stool. Heparin was already stopped and plavix held Iron supplement held. Pain across abdomen is resolved now. Given elevated LFTs which may have been related to shock liver, it is possible she may have an ischemic colitis from recent sepsis that is improving repeat CT a/p with IV contrast unremarkable for new findings. At this point, H/H is stable and her vitals are stable which is reassuring. Per GI, clinical picture is not consistent with colitis and bleeding has resolved. Cont holding off on blood thinners for 72 hours and trend H/H. If bleeding returns, consider endoscopic evaluation at that time. Cont IV PPI for now. Elevated liver enzymes Liver Mass Liver enzyme levels increased over hospitalization time poss 10/16 sepsis vs medication side effect. US liver ordered -concerning for increasing liver mass when compared to lesion noted on imaging from Jul 2022, radiology recommending tissue sampling CT abd/pelvis from 09/06 with no noted mass, consider confirming read with radiologist reading that CT GI consult placed- appreciate further recs -recommending outpt IR biopsy on discharge LFTs trending down , Can continue to watch. Consider liver serology with CMV, EBV and acute hepatitis panel. Holding home statin with liver enzyme elevation Possible DKA, resolved Hgb A1c 6.3% Sugars in 300s and had anion gap on admission Initially placed on insulin drip. Not on any medications at home. reports that her blood glucose has been around 110s to 120s most of the time but recently elevated to 200s Continue on subcu insulin. Pharmacy glycemic consult ANDRESSA on CKD stage III, likely prerenal due to sepsis vs cardiorenal Hyponatremia likely due to ANDRESSA Presented with creatinine 1.7 Creatinine elevated to 2, improving slowly with gentle hydration Improved to 1, which is pt's baseline. Continue to encourage p.o. intake. This is likely related to ATN from sepsis. Nephrology was consulted - NEPHRO D/C RECOMMENDATIONS -hospital d/c appt w/ Dr. Gonzalez in [facility] /[facility] 2-4 wks after d/c w/ BMP, urine and sodium osmolality, ACR, rd urine sodium, UACM to be done about 3 days before appt; labs to be ordered by nephro nurse -also check bmp at [facility] hospital d/c visit Hyponatremia: resolved; attributed to HF. Sodium remains normal today. Patient is not drinking much. recommend continue to monitor daily bmp while in house. not currently on diuretics and this is OK History of asthma History of COPD History of drug-induced interstitial lung disorders Chronic, stable. Continue supportive care as needed. Continue home inhalers History of CVA chronic, stable. Uncertain if any residual deficits. On statin and Plavix History of C. difficile C diff gene negative at this time (repeated stool study today 09/17/22) Previously on po vancomycin by ID Continued home p.o. vancomycin at this time previous hospitalist Contacted ID to ensure ok to dc vanco given pt's history -per ID ok to dc po Vanc -pt has loose stools, no blood in the stool currently, stool study repeated and negat. for c. diff gene History of esophageal dysphagia Speech consulted; restarting pured diet. hypertension chronic, stable. Cont current therapy. rheumatoid arthritis chronic, stable. Cont holding plaquenil. She was initially started on stress dose hydrocortisone, but is clinically improved so this was stopped. Side effects outweigh the benefits at this point. She was restarted on her chronic prednisone. History of vitamin B1 and B12 deficiency Continue supplementation when more alert. depression chronic, stable. Continue duloxetine DVT prophylaxis: SCDs, chemoprophylaxis contraindicated with possibility of bleeding. Diet: DMII, pureed, nutrition consult placed. DNR/DNI (2) Acute heart failure with reduced ejection fraction and diastolic dysfunction: (3) ANDRESSA (acute kidney injury): (4) Atrial fibrillation with rapid ventricular response: (5) Takotsubo cardiomyopathy: (6) Heart disease: (7) HTN (hypertension): (8) NSTEMI (non-ST elevated myocardial infarction): (9) DM type 2 (diabetes mellitus, type 2): (10) Rheumatoid arthritis: Admission and Anticipated Discharge Date Admission Date: September 05, 2023 Subjective 78 yo F admitted with acute sepsis secondary to pna, NSTEMI, encephalopathy and found to have severe LV systolic dysfunction most consistent with Takotsubo cardiomyopathy. She has been resuscitated from a sepsis standpoint and treated for pneumonia with a 7 day course of IV abx. No evidence of UTI on culture results. She has a h/o rheumatoid arthritis. Currently laying in bed in NAD. She is answering questions appropriately. Pt's at the bedside. has some chronic lower abdominal pain on and off - says that is unchanged. Has loose stools - tested and negative for c. diff gene. no hematochezia today remains off plavix - plan to restart tmrw Seen by GI previously - no plans for endoscopy at this time. ANDRESSA resolved - nephrology signed off. Discussed w/ cardiology today - Takotsubo resolved - cont. higher dose metoprolol Review of Systems Review of Systems: All systems reviewed & are unremarkable except as noted in Subjective Physical Exam Physical Exam: CONSTITUTIONAL: WNWD, in NAD, appears chronically ill EYES: normal conjunctivae, no scleral icterus ENT: external ear and nose normal, edentulous NECK: supple RESPIRATORY: normal respiratory effort, + mild rhonchi, no wheezing. CARDIOVASCULAR: regular rate and rhythm, S1 and 2 heard without murmurs CHEST: inspection of chest normal GASTROINTESTINAL: soft, nontender, nondistended, no guarding MUSCULOSKELETAL: Generalized weakness, head is normocephalic and atraumatic SKIN: warm and dry NEURO/PSYCH: awake, alert, oriented, cooperative, answers simple questions appropriately. speech fluent, moves extremities Results & Data Results & Data Vital Signs (Past 12 Hours) Vital Signs Temp Pulse Pulse Resp BP Pulse Ox O2 Del Method 09/17/23 07:36 36.6 C 71 18 132/53 L 96 Room Air 09/17/23 03:46 36.8 C 68 16 158/65 H 99 Room Air 09/16/23 23:31 65 09/16/23 22:36 36.8 C 69 18 129/53 L 96 Room Air 09/16/23 21:16 Room Air Laboratory Results 09/17/23 09/17/23 09/16/23 Range/Units 07:39 05:45 20:12 WBC 6.07 (4.8-10.8) K/ul RBC 3.16 L (4.20-5.40) M/uL Hgb 8.9 L (12.0-16.0) g/dl Hct 27.3 L (37.0-47.0) % MCV 86.4 (80.0-100.0) fL MCH 28.2 (25.0-34.0) pg MCHC 32.6 (32.0-36.0) g/dL RDW Std Deviation 57.5 H (36.4-46.3) fL RDW Coeff of Xochitl 19.0 H (11.5-14.5) % Plt Count 139 (130-400) K/uL MPV 9.2 L (9.4-12.4) fL Sodium 134 L (136-145) mmol/L Potassium 4.2 (3.5-5.1) mmol/L Chloride 101 (98-107) mmol/L Carbon Dioxide 26 (21-32) mmol/L Anion Gap 7 (3-11) BUN 43 H (6-23) mg/dl Creatinine 1.03 (0.6-1.2) mg/dl Est Cr Clr Drug Dosing 40.3 ml/min Est GFR ( Amer) 61.2 ml/min Est GFR (Non-Af Amer) 52.8 ml/min BUN/Creatinine Ratio 41.7 H (10-20) Glucose 93 (70-99(Fasting)) mg/dl POC Glucose 96 170 H (70-99) mg/dl Calcium 8.6 (8.6-10.3) mg/dl Phosphorus 3.7 (2.5-4.9) mg/dl Magnesium 1.5 L (1.7-2.4) mg/dl Total Bilirubin 0.4 (0.2-1.0) mg/dl AST 152 H (13-39) U/L ALT 152 H (7-52) U/L Alkaline Phosphatase 141 H (34-104) U/L Total Protein 4.9 L (6.0-8.3) gm/dl Albumin 2.6 L (3.4-5.0) gm/dl Globulin 2.3 L (2.5-4.0) gm/dl Albumin/Globulin Ratio 1.1 (0.9-2) 09/16/23 09/16/23 09/16/23 Range/Units 16:33 12:03 08:09 WBC (4.8-10.8) K/ul RBC (4.20-5.40) M/uL Hgb (12.0-16.0) g/dl Hct (37.0-47.0) % MCV (80.0-100.0) fL MCH (25.0-34.0) pg MCHC (32.0-36.0) g/dL RDW Std Deviation (36.4-46.3) fL RDW Coeff of Xochitl (11.5-14.5) % Plt Count (130-400) K/uL MPV (9.4-12.4) fL Sodium (136-145) mmol/L Potassium (3.5-5.1) mmol/L Chloride (98-107) mmol/L Carbon Dioxide (21-32) mmol/L Anion Gap (3-11) BUN (6-23) mg/dl Creatinine (0.6-1.2) mg/dl Est Cr Clr Drug Dosing ml/min Est GFR ( Amer) ml/min Est GFR (Non-Af Amer) ml/min BUN/Creatinine Ratio (10-20) Glucose (70-99(Fasting)) mg/dl POC Glucose 175 H 129 H 99 (70-99) mg/dl Calcium (8.6-10.3) mg/dl Phosphorus (2.5-4.9) mg/dl Magnesium (1.7-2.4) mg/dl Total Bilirubin (0.2-1.0) mg/dl AST (13-39) U/L ALT (7-52) U/L Alkaline Phosphatase (34-104) U/L Total Protein (6.0-8.3) gm/dl Albumin (3.4-5.0) gm/dl Globulin (2.5-4.0) gm/dl Albumin/Globulin Ratio (0.9-2) Medications Administered Current Inpatient Medications Albuterol (Albuterol Hfa 8 Gm Inhaler) 2 puffs INH Q4 PRN PRN Reason: Shortness Of Breath Stop: 10/05/23 23:48 Albuterol (Albuterol 0.083% Nebu Soln 3 Ml Vial) 2.5 mg INH DAILY PRN; Protocol PRN Reason: Shortness Of Breath Or Wheezing Stop: 10/05/23 23:48 Calamine/Phenol (Menthol-Zinc Oxide 360 Appln/120 Gm Tube) 1 appln EXT BID PRN PRN Reason: AFFECTED AREA Stop: 10/05/23 23:48 Clopidogrel Bisulfate (Clopidogrel Bisulfate 75 Mg Tab) 75 mg PO QAM KARLA Stop: 10/06/23 08:59 Last Admin: 09/13/23 08:25 Dose: 75 mg Dextrose (Dextrose 50% 50 Ml Syringe) 25 - 50 ml IV UD PRN; Protocol PRN Reason: Hypoglycemia Protocol Stop: 10/06/23 00:17 Duloxetine HCl (Duloxetine Hcl 60 Mg Cap) 60 mg PO QAM KARLA Stop: 10/06/23 08:59 Last Admin: 09/16/23 08:40 Dose: 60 mg Ferrous Sulfate (Ferrous Sulfate 325 Mg Tab) 325 mg PO QAM KARLA Stop: 10/06/23 08:59 Last Admin: 09/13/23 08:25 Dose: 325 mg Fluticasone/Vilanterol (Fluticasone/Vilanterol 200/25mcg 14 Puffs/Inhaler) 1 puffs INH DAILY KARLA Stop: 10/06/23 08:59 Last Admin: 09/16/23 08:40 Dose: 1 puffs Folic Acid (Folic Acid 1 Mg Tab) 1 mg PO QAM KARLA Stop: 10/06/23 08:59 Last Admin: 09/16/23 08:40 Dose: 1 mg Glucagon (Glucagon For Inj 1 Mg Vial) 1 mg SQ UD PRN; Protocol PRN Reason: Hypoglycemia Protocol Stop: 10/06/23 00:17 Glucose (Glucose 10 Tab/Tube) 4 - 8 tab PO UD PRN; Protocol PRN Reason: Hypoglycemia Treatment Stop: 10/06/23 00:17 Glucose (Glucose 40% Gel 15 Gm Tube) 15 - 30 gm PO UD PRN; Protocol PRN Reason: Hypoglycemia Protocol Stop: 10/06/23 00:17 Guaifenesin (Guaifenesin 600 Mg Tabcr) 600 mg PO Q12 KARLA Stop: 10/16/23 16:29 Last Admin: 09/16/23 19:30 Dose: 600 mg Pantoprazole Sodium 40 mg/ (Syringe) 10 mls @ 5 mls/min IV BID KARLA Stop: 10/14/23 20:59 Last Admin: 09/16/23 19:32 Dose: 5 mls/min Insulin Aspart (Insulin Aspart Per Unit Charge) 0 units SC ACHS [facility] Stop: 10/06/23 11:29 Last Admin: 09/16/23 20:19 Dose: 3 units Isosorbide Dinitrate (Isosorbide Dinitrate 10 Mg Tab) 10 mg PO BID@0900,1800 [facility] Stop: 10/14/23 12:14 Last Admin: 09/16/23 18:09 Dose: 10 mg Lactobacillus Acidophilus (Advanced Probiotic 1250 Mg Capsule) 2 cap PO BID [facility] Stop: 10/06/23 08:59 Last Admin: 09/16/23 19:30 Dose: 2 cap Latanoprost (Latanoprost 0.005% Op Soln 2.5 Ml Btl) 1 drops OPB HS [facility] Stop: 10/06/23 20:59 Last Admin: 09/16/23 19:30 Dose: 1 drops Levalbuterol HCl (Levalbuterol 1.25 Mg/3 Ml Neb) 1.25 mg INH Q4H PRN PRN Reason: WHEEZING/SOB/COUGH Stop: 10/05/23 23:48 Metoprolol Succinate (Metoprolol Succ 50mg Ext Rel Tab) 50 mg PO BID17 [facility] Stop: 10/12/23 16:59 Last Admin: 09/16/23 18:09 Dose: 50 mg Miscellaneous (Carbohydrates For Hypoglycemia ) 15 - 30 gm PO UD PRN PRN Reason: Hypoglycemia Protocol Stop: 10/06/23 00:17 Montelukast Sodium (Montelukast Sodium 10 Mg Tablet) 10 mg PO [facility] Stop: 10/06/23 08:59 Last Admin: 09/16/23 08:40 Dose: 10 mg Multivitamins/Minerals (Cerovite Adv Formula Tab) 1 tab PO [facility] Stop: 10/06/23 08:59 Last Admin: 09/16/23 08:40 Dose: 1 tab Nitroglycerin (Nitroglycerin Sl 0.4 Mg/Tab Tab) 0.4 mg SL Q5M PRN PRN Reason: Chest Pain Stop: 10/05/23 23:48 Ondansetron HCl (Ondansetron Inj 2 Mg/Ml 2 Ml Vial) 4 mg IV Q6H PRN PRN Reason: Nausea Stop: 10/05/23 23:48 Last Admin: 09/06/23 15:18 Dose: 4 mg Oxybutynin Chloride (Oxybutynin Chloride Xl 5 Mg Tabcr) 10 mg PO [facility] Stop: 10/06/23 08:59 Last Admin: 09/13/23 08:24 Dose: 10 mg Prednisone (Prednisone 5 Mg Tab) 5 mg PO [facility] Stop: 10/13/23 10:14 Last Admin: 09/16/23 08:40 Dose: 5 mg Rosuvastatin Calcium (Rosuvastatin Calcium 20 Mg Tab) 20 mg PO [facility] Stop: 10/06/23 20:59 Last Admin: 09/11/23 21:12 Dose: 20 mg Triamcinolone Acetonide (Triamcinolone Acet 0.1% Cr 15 Gm Tube) 1 appln TOP BID PRN PRN Reason: AFFECTED AREA Stop: 10/05/23 23:48 Vitamin D (Cholecalciferol 1,000 Units 25 Mcg Tab) 2,000 units PO QAM [facility] Stop: 10/06/23 08:59 Last Admin: 09/16/23 08:40 Dose: 2,000 units (1) Sepsis Sepsis acute organ dysfunction status: with acute organ dysfunction Sepsis type: sepsis due to unspecified organism Severe sepsis acute organ dysfunction type: encephalopathy Severe sepsis shock status: without septic shock Qualified Code(s): A41.9 - Sepsis, unspecified organism; R65.20 - Severe sepsis without septic shock; G93.41 - Metabolic encephalopathy
[2023-09-17] MEDS: CHOLECALCIFEROL 1,000 UNITS 25 MCG TAB PO SCH (09:03)
[2023-09-17] MEDS: ADVANCED PROBIOTIC 1250 MG CAPSULE PO SCH ×2 (09:03→20:33)
[2023-09-17] MEDS: FLUTICASONE/VILANTEROL 200/25MCG 14 PUFFS/INHALER INH SCH (09:04)
[2023-09-17] MEDS: FOLIC ACID 1 MG TAB PO SCH (09:04)
[2023-09-17] MEDS: METOPROLOL SUCC 50MG EXT REL TAB PO SCH ×2 (09:05→16:22)
[2023-09-17] MEDS: ISOSORBIDE DINITRATE 10 MG TAB PO SCH ×2 (09:05→17:27)
[2023-09-17] MEDS: MONTELUKAST SODIUM 10 MG TABLET PO SCH (09:05)
[2023-09-17] MEDS: guaiFENesin 600 MG TABCR PO SCH ×2 (09:05→20:32)
[2023-09-17] MEDS: DULoxetine HCL 60 MG CAP PO SCH (09:06)
[2023-09-17] MEDS: CEROVITE ADV FORMULA TAB PO SCH (09:06)
[2023-09-17] MEDS: predniSONE 5 MG TAB PO SCH (09:06)
[2023-09-17] MEDS: PANTOprazole 40 MG in SYRINGE 0 ML IV SCH ×2 (09:07→20:34)
[2023-09-17] MEDS: INSULIN ASPART PER UNIT CHARGE SC SCH ×4 (09:20→20:33)
--- NOTE | 2023-09-17 16:06 | Cardiology Progress Note ---
Date of Service September 17, 2023 Assessment & Plan (1) Sepsis: (2) Paroxysmal atrial fibrillation: (3) Takotsubo cardiomyopathy: (4) NSTEMI (non-ST elevated myocardial infarction): (5) Acute renal failure: (6) Acute metabolic encephalopathy: Plan 78-year-old female admitted with acute sepsis and encephalopathy, paroxysmal atrial fibrillation with RVR, and echocardiographic evidence of severe LV systolic dysfunction most consistent with stress-induced (Takotsubo) cardiomy opathy. 09/17/2023 1. Takotsubo cardiomyopathy: LV systolic function has returned completely to normal without wall motion abnormality. Suspect secondary to acute sepsis pattern with multiple organ system involvement. Would continue substantially increased dose of metoprolol succinate at 50 mg twice per day. Given hyponatremia and transient renal insufficiency will avoid LILI inhibitor for time being. Patient previously on clopidogrel for TIA stroke symptoms dating back to April 2023 or earlier. 2. Hypertension: Previously on amlodipine May consider resuming a low-dose of 2.5 mg/day if persistently elevated 3. Transient renal insufficiency and hyponatremia appreciate nephrology recommendation Cardiology will sign off contact with questions or concerns Admission and Anticipated Discharge Date Admission Date: September 05, 2023 Subjective Patient was seen and examined, chart, medications, telemetry reviewed. Sitting up in bed no cardiac complaints. Overall feels gradually improved since hospitalization. No chest pains, shortness of breath, tachypalpitations. No significant arrhythmias on telemetry. Tolerating substantial increase in beta-rhoda therapy. Review of Systems Review of Systems: All systems reviewed & are unremarkable except as noted in Subjective Physical Exam Constitutional: + ill appearing; no acute distress ENMT: external ear and nose normal, oropharynx normal Neck: trachea midline, no thyromegaly Respiratory: normal respiratory effort; no respiratory distress Auscultation: + diminished lung sounds (Bases bilateral); no rales, no rhonchi and no wheezes Cardiovascular: Rate/Rhythm: regular rate and regular rhythm Heart Sounds: normal S1, normal S2 and + murmur (1/6 systolic ejection murmur) Vessels: no JVD and no carotid bruit Extremities: no edema Gastrointestinal (Abdomen): Inspection/Auscultation: normal bowel sounds; abdomen not distended Percussion/Palpation: abdomen soft; abdomen nontender, no guarding and abdomen not rigid Neurologic: CN's II-XI intact bilaterally and moves all extremities Results & Data Vital Signs (Past 12 Hours) Vital Signs Temp Pulse Pulse Resp BP Pulse Ox O2 Del Method 09/17/23 11:50 36.7 C 67 18 154/69 H 97 Room Air 09/17/23 10:31 Room Air 09/17/23 07:36 36.6 C 71 18 132/53 L 96 Room Air 09/17/23 07:15 64 Laboratory Results Laboratory Results - last 24 hr 09/16/23 09/16/23 09/17/23 16:33 20:12 05:45 WBC 6.07 RBC 3.16 L Hgb 8.9 L Hct 27.3 L MCV 86.4 MCH 28.2 MCHC 32.6 RDW Std Deviation 57.5 H RDW Coeff of Xochitl 19.0 H Plt Count 139 MPV 9.2 L Sodium 134 L Potassium 4.2 Chloride 101 Carbon Dioxide 26 Anion Gap 7 BUN 43 H Creatinine 1.03 Est Cr Clr Drug Dosing 40.3 Est GFR ( Amer) 61.2 Est GFR (Non-Af Amer) 52.8 BUN/Creatinine Ratio 41.7 H Glucose 93 POC Glucose 175 H 170 H Calcium 8.6 Phosphorus 3.7 Magnesium 1.5 L Total Bilirubin 0.4 AST 152 H ALT 152 H Alkaline Phosphatase 141 H Total Protein 4.9 L Albumin 2.6 L Globulin 2.3 L Albumin/Globulin Ratio 1.1 Stl C. diff Tox B Gene 09/17/23 09/17/23 09/17/23 07:39 11:24 11:52 WBC RBC Hgb Hct MCV MCH MCHC RDW Std Deviation RDW Coeff of Xochitl Plt Count MPV Sodium Potassium Chloride Carbon Dioxide Anion Gap BUN Creatinine Est Cr Clr Drug Dosing Est GFR ( Amer) Est GFR (Non-Af Amer) BUN/Creatinine Ratio Glucose POC Glucose 96 227 H Calcium Phosphorus Magnesium Total Bilirubin AST ALT Alkaline Phosphatase Total Protein Albumin Globulin Albumin/Globulin Ratio Stl C. diff Tox B Gene Negative Cdiff Gene (1) Sepsis Sepsis acute organ dysfunction status: with acute organ dysfunction Sepsis type: sepsis due to unspecified organism Severe sepsis acute organ dysfunction type: encephalopathy Severe sepsis shock status: without septic shock Qualified Code(s): A41.9 - Sepsis, unspecified organism; R65.20 - Severe sepsis without septic shock; G93.41 - Metabolic encephalopathy (5) Acute renal failure Acute renal failure type: unspecified Qualified Code(s): N17.9 - Acute kidney failure, unspecified
[2023-09-17] MEDS: LATANOPROST 0.005% OP SOLN 2.5 ML BTL OPB SCH (20:32)
[2023-09-18 07:47] LABS: Hematocrit (blood only) 28.6 % (37.0-47.0); Hemoglobin 9.5 g/dl (12.0-16.0); Mean Corpuscular Hemoglobin 28.5 pg (25.0-34.0); Mean Corpuscular Hgb Conc 33.2 g/dL (32.0-36.0); Mean Corpuscular Volume 85.9 fL (80.0-100.0); Mean Platelet Volume 8.7 fL (9.4-12.4); Platelet Count 140 K/uL (130-400); RDW Standard Deviation 58.3 fL (36.4-46.3); Red Blood Count 3.33 M/uL (4.20-5.40)
[2023-09-18 08:11] LABS: BUN Creatinine Ratio 42.9 (10-20); Calcium 8.8 mg/dl (8.6-10.3); Creatinine Clr Calc Pharmacy 45.9 ml/min; Est GFR (Non-African American) 61.3 ml/min; Magnesium 1.6 mg/dl (1.7-2.4); Phosphorus 3.9 mg/dl (2.5-4.9); Potassium 4.2 mmol/L (3.5-5.1)
[2023-09-18] MEDS: INSULIN ASPART PER UNIT CHARGE SC SCH ×4 (08:35→21:06)
[2023-09-18] MEDS: CLOPIDOGREL BISULFATE 75 MG TAB PO SCH (09:03)
[2023-09-18] MEDS: DULoxetine HCL 60 MG CAP PO SCH (09:03)
[2023-09-18] MEDS: CHOLECALCIFEROL 1,000 UNITS 25 MCG TAB PO SCH (09:03)
[2023-09-18] MEDS: FLUTICASONE/VILANTEROL 200/25MCG 14 PUFFS/INHALER INH SCH (09:03)
[2023-09-18] MEDS: ISOSORBIDE DINITRATE 10 MG TAB PO SCH ×2 (09:04→17:55)
[2023-09-18] MEDS: ADVANCED PROBIOTIC 1250 MG CAPSULE PO SCH ×2 (09:04→20:15)
[2023-09-18] MEDS: guaiFENesin 600 MG TABCR PO SCH ×2 (09:04→20:15)
[2023-09-18] MEDS: FOLIC ACID 1 MG TAB PO SCH (09:04)
[2023-09-18] MEDS: METOPROLOL SUCC 50MG EXT REL TAB PO SCH ×2 (09:05→17:56)
[2023-09-18] MEDS: CEROVITE ADV FORMULA TAB PO SCH (09:05)
[2023-09-18] MEDS: MONTELUKAST SODIUM 10 MG TABLET PO SCH (09:05)
[2023-09-18] MEDS: predniSONE 5 MG TAB PO SCH (09:06)
[2023-09-18] MEDS: PANTOprazole 40 MG in SYRINGE 0 ML IV SCH ×2 (09:07→20:16)
[2023-09-18] MEDS ORDERED: MAGNESIUM SULFATE / D5W 1 GM/100 ML BAG IV ONE (09:55)
--- NOTE | 2023-09-18 09:58 | Hospitalist Progress Note ---
Date of Service September 18, 2023 Assessment & Plan (1) Sepsis: Plan: 75-year-old female with type 2 diabetes, CKD stage III, hyperlipidemia, chronic drug-induced interstitial lung disorders, asthma mild persistent, COPD, chronic right-sided heart failure, hypertension, history of CAD, history of CVA, mild aortic stenosis, paroxysmal atrial fibrillation, moderate protein calorie malnutrition, slow transit constipation, vitamin B-12 and thiamine deficiency, history of esophageal dysphagia, GERD, gout, osteoarthritis, primary open-angle glaucoma, polyneuropathy, rheumatoid arthritis involving multiple sites with positive rheumatoid factor, depression, history of C. difficile, history of COVID, history of fever of unknown origin admitted with fever and lethargy. Sepsis, POA-resolved R lung pneumonia-treated Acute metabolic encephalopathy-resolved Metabolic encephalopathy likely due to sepsis-resolved Neurology consult- -MRI brain without contrast: per neurology no acute concerns -EEG suggestive of encephalopathy Patient presented with fever and lethargy for 2 days. Patient reported sore throat and hoarse voice CT chest- infiltrate on right lung field; small bilateral pleural effusion CT abdomen and pelvisno acute finding CT headno acute finding Urine cultureno growth Blood culturenegative She received 2 days of cefepime and vancomycin followed by 5 days of ertapenem for a full antibiotic course and to treat pneumonia. She is oxygenating well on room air. Repeat chest imaging in 4 weeks time. She has been resuscitated from a sepsis standpoint and this is resolved. She remains afebrile Acute systolic heart failure 2/2 Takotsubo cardiomyopathy NSTEMI History of CAD Paroxysmal atrial fibrillation EKG on admission with atrial fibrillation with diffuse ST depression. High sensitive troponin elevated to 1190; downtrended Echocardiogram 09/06 showed EF of 20 to 25%; large wall motion abnormality with severe hypokinesis to dyskinesis of mid and apical left ventricular myocardial wall. Repeat echo 09/10 showed improved EF of 35-40% Was on IV heparin. Continue GDMT per cardiology Continue on Plavix and statin.--plavix on hold /2 hematochezia - resumed 09/18/23 Continue metoprolol succinate 50 mg twice per day. Add isosorbide dinitrate 10 mg twice daily. Renal function limits use of LILI/Entresto. Takotsubo has resolved - discussed w/ cardiology. Amlodipine may be restarted if BP elevated. Hematochezia-(new 09/14) Abdominal pain Started 09/14 with dark red stool. Heparin was already stopped and plavix held Iron supplement held. Pain across abdomen is resolved now. Given elevated LFTs which may have been related to shock liver, it is possible she may have an ischemic colitis from recent sepsis that is improving repeat CT a/p with IV contrast unremarkable for new findings. At this point, H/H is stable and her vitals are stable which is reassuring. Per GI, clinical picture is not consistent with colitis and bleeding has resolved. Cont holding off on blood thinners for 72 hours and trend H/H. If bleeding returns, consider endoscopic evaluation at that time. Cont IV PPI for now. Elevated liver enzymes Liver Mass Liver enzyme levels increased over hospitalization time poss 10/16 sepsis vs medication side effect. US liver ordered -concerning for increasing liver mass when compared to lesion noted on imaging from Jul 2022, radiology recommending tissue sampling CT abd/pelvis from 09/06 with no noted mass, consider confirming read with radiologist reading that CT GI consult placed- appreciate further recs -recommending outpt IR biopsy on discharge LFTs trending down , Can continue to watch. Consider liver serology with CMV, EBV and acute hepatitis panel. Holding home statin with liver enzyme elevation Possible DKA, resolved Hgb A1c 6.3% Sugars in 300s and had anion gap on admission Initially placed on insulin drip. Not on any medications at home. reports that her blood glucose has been around 110s to 120s most of the time but recently elevated to 200s Continue on subcu insulin. Pharmacy glycemic consult ANDRESSA on CKD stage III, likely prerenal due to sepsis vs cardiorenal Hyponatremia likely due to ANDRESSA Presented with creatinine 1.7 Creatinine elevated to 2, improving slowly with gentle hydration Improved to 1, which is pt's baseline. Continue to encourage p.o. intake. This is likely related to ATN from sepsis. Nephrology was consulted - NEPHRO D/C RECOMMENDATIONS -hospital d/c appt w/ Dr. Gonzalez in [facility] 2-4 wks after d/c w/ BMP, urine and sodium osmolality, ACR, rd urine sodium, UACM to be done about 3 days before appt; labs to be ordered by nephro nurse -also check bmp at [facility] hospital d/c visit Hyponatremia: resolved; attributed to HF. Sodium remains normal today. Patient is not drinking much. recommend continue to monitor daily bmp while in house. not currently on diuretics and this is OK History of asthma History of COPD History of drug-induced interstitial lung disorders Chronic, stable. Continue supportive care as needed. Continue home inhalers History of CVA chronic, stable. Uncertain if any residual deficits. On statin and Preeti vix.plavix resumed now History of C. difficile C diff gene negative at this time (repeated stool study today 09/17/23) Previously on po vancomycin by ID Continued home p.o. vancomycin at this time previous hospitalist Contacted ID to ensure ok to dc vanco given pt's history -per ID ok to dc po Vanc -pt has loose stools, no blood in the stool currently, stool study repeated and negat. for c. diff gene History of esophageal dysphagia Speech consulted; restarting pured diet. hypertension chronic, stable. Cont current therapy. rheumatoid arthritis chronic, stable. Cont holding plaquenil. She was initially started on stress dose hydrocortisone, but is clinically improved so this was stopped. Side effects outweigh the benefits at this point. She was restarted on her chronic prednisone. History of vitamin B1 and B12 deficiency Continue supplementation when more alert. depression chronic, stable. Continue duloxetine DVT prophylaxis: SCDs, chemoprophylaxis contraindicated with possibility of bleeding. Diet: DMII, pureed, nutrition consult placed. DNR/DNI (2) Acute heart failure with reduced ejection fraction and diastolic dysfunction: (3) ANDRESSA (acute kidney injury): (4) Atrial fibrillation with rapid ventricular response: (5) Takotsubo cardiomyopathy: (6) Heart disease: (7) HTN (hypertension): (8) NSTEMI (non-ST elevated myocardial infarction): (9) DM type 2 (diabetes mellitus, type 2): (10) Rheumatoid arthritis: Admission and Anticipated Discharge Date Admission Date: September 05, 2023 Subjective 78 yo F admitted with acute sepsis secondary to pna, NSTEMI, encephalopathy and found to have severe LV systolic dysfunction most consistent with Takotsubo cardiomyopathy. She has been resuscitated from a sepsis standpoint and treated for pneumonia with a 7 day course of IV abx. No evidence of UTI on culture results. She has a h/o rheumatoid arthritis. Currently laying in bed in NAD. She is answering most simple questions appropriately. Pt's at the bedside. Had loose stools yesterday - tested and negative for c. diff gene. no hematochezia today - discussed w/ RN remained off plavix - restarted today Seen by GI previously - no plans for endoscopy at this time. ANDRESSA resolved - nephrology signed off. Discussed w/ cardiology yesterday - Takotsubo resolved - cont. higher dose metoprolol Review of Systems Review of Systems: All systems reviewed & are unremarkable except as noted in Subjective Physical Exam Physical Exam: CONSTITUTIONAL: WNWD, in NAD, appears chronically ill EYES: normal conjunctivae, no scleral icterus ENT: external ear and nose normal, edentulous NECK: supple RESPIRATORY: normal respiratory effort, + mild rhonchi, no wheezing. CARDIOVASCULAR: regular rate and rhythm, S1 and 2 heard without murmurs CHEST: inspection of chest normal GASTROINTESTINAL: soft, nontender, nondistended, no guarding MUSCULOSKELETAL: Generalized weakness, head is normocephalic and atraumatic SKIN: warm and dry NEURO/PSYCH: awake, alert, oriented, cooperative, answers simple questions appropriately. speech fluent, moves extremities Results & Data Results & Data Vital Signs (Past 12 Hours) Vital Signs Temp Pulse Pulse Resp BP BP Pulse Ox 09/18/23 07:59 36.5 C 54 L 18 167/76 H 97 09/18/23 07:15 09/18/23 03:02 36.6 C 85 20 173/68 H 99 09/17/23 22:56 36.9 C 63 16 154/68 H 98 09/17/23 22:03 09/17/23 21:58 67 O2 Del Method 09/18/23 07:59 Room Air 09/18/23 07:15 Room Air 09/18/23 03:02 Room Air 09/17/23 22:56 Room Air 09/17/23 22:03 Room Air 09/17/23 21:58 Laboratory Results 09/18/23 09/18/23 09/17/23 Range/Units 08:01 07:21 20:21 WBC 5.50 (4.8-10.8) K/ul RBC 3.33 L (4.20-5.40) M/uL Hgb 9.5 L (12.0-16.0) g/dl Hct 28.6 L (37.0-47.0) % MCV 85.9 (80.0-100.0) fL MCH 28.5 (25.0-34.0) pg MCHC 33.2 (32.0-36.0) g/dL RDW Std Deviation 58.3 H (36.4-46.3) fL RDW Coeff of Xochitl 19.0 H (11.5-14.5) % Plt Count 140 (130-400) K/uL MPV 8.7 L (9.4-12.4) fL Sodium 133 L (136-145) mmol/L Potassium 4.2 (3.5-5.1) mmol/L Chloride 99 (98-107) mmol/L Carbon Dioxide 27 (21-32) mmol/L Anion Gap 7 (3-11) BUN 39 H (6-23) mg/dl Creatinine 0.91 (0.6-1.2) mg/dl Est Cr Clr Drug Dosing 45.9 ml/min Est GFR ( Amer) 71.0 ml/min Est GFR (Non-Af Amer) 61.3 ml/min BUN/Creatinine Ratio 42.9 H (10-20) Glucose 96 (70-99(Fasting)) mg/dl POC Glucose 103 H 179 H (70-99) mg/dl Calcium 8.8 (8.6-10.3) mg/dl Phosphorus 3.9 (2.5-4.9) mg/dl Magnesium 1.6 L (1.7-2.4) mg/dl Stl C. diff Tox B Gene (Neg) 09/17/23 09/17/23 09/17/23 Range/Units 17:02 11:52 11:24 WBC (4.8-10.8) K/ul RBC (4.20-5.40) M/uL Hgb (12.0-16.0) g/dl Hct (37.0-47.0) % MCV (80.0-100.0) fL MCH (25.0-34.0) pg MCHC (32.0-36.0) g/dL RDW Std Deviation (36.4-46.3) fL RDW Coeff of Xochitl (11.5-14.5) % Plt Count (130-400) K/uL MPV (9.4-12.4) fL Sodium (136-145) mmol/L Potassium (3.5-5.1) mmol/L Chloride (98-107) mmol/L Carbon Dioxide (21-32) mmol/L Anion Gap (3-11) BUN (6-23) mg/dl Creatinine (0.6-1.2) mg/dl Est Cr Clr Drug Dosing ml/min Est GFR ( Amer) ml/min Est GFR (Non-Af Amer) ml/min BUN/Creatinine Ratio (10-20) Glucose (70-99(Fasting)) mg/dl POC Glucose 135 H 227 H (70-99) mg/dl Calcium (8.6-10.3) mg/dl Phosphorus (2.5-4.9) mg/dl Magnesium (1.7-2.4) mg/dl Stl C. diff Tox B Gene Negative Cdiff Gene (Neg) Medications Administered Current Inpatient Medications Albuterol (Albuterol Hfa 8 Gm Inhaler) 2 puffs INH Q4 PRN PRN Reason: Shortness Of Breath Stop: 10/05/23 23:48 Albuterol (Albuterol 0.083% Nebu Soln 3 Ml Vial) 2.5 mg INH DAILY PRN; Protocol PRN Reason: Shortness Of Breath Or Wheezing Stop: 10/05/23 23:48 Calamine/Phenol (Menthol-Zinc Oxide 360 Appln/120 Gm Tube) 1 appln EXT BID PRN PRN Reason: AFFECTED AREA Stop: 10/05/23 23:48 Clopidogrel Bisulfate (Clopidogrel Bisulfate 75 Mg Tab) 75 mg PO [facility] Stop: 10/06/23 08:59 Last Admin: 09/18/23 09:03 Dose: 75 mg Dextrose (Dextrose 50% 50 Ml Syringe) 25 - 50 ml IV UD PRN; Protocol PRN Reason: Hypoglycemia Protocol Stop: 10/06/23 00:17 Duloxetine HCl (Duloxetine Hcl 60 Mg Cap) [facility] [place] [facility] [place]: 10/06/23 08:59 Last Admin: 09/18/23 09:03 Dose: 60 mg Ferrous Sulfate (Ferrous Sulfate 325 Mg Tab) 325 mg [facility] [place] [facility] [place] Stop: 10/06/23 08:59 Last Admin: 09/13/23 08:25 Dose: 325 mg Fluticasone/Vilanterol (Fluticasone/Vilanterol 200/25mcg 14 Puffs/Inhaler) 1 puffs INH DAILY KARLA Stop: 10/06/23 08:59 Last Admin: 09/18/23 09:03 Dose: 1 puffs Folic Acid (Folic Acid 1 Mg Tab) 1 mg PO QAM KARLA Stop: 10/06/23 08:59 Last Admin: 09/18/23 09:04 Dose: 1 mg Glucagon (Glucagon For Inj 1 Mg Vial) 1 mg SQ UD PRN; Protocol PRN Reason: Hypoglycemia Protocol Stop: 10/06/23 00:17 Glucose (Glucose 10 Tab/Tube) 4 - 8 tab PO UD PRN; Protocol PRN Reason: Hypoglycemia Treatment Stop: 10/06/23 00:17 Glucose (Glucose 40% Gel 15 Gm Tube) 15 - 30 gm PO UD PRN; Protocol PRN Reason: Hypoglycemia Protocol Stop: 10/06/23 00:17 Guaifenesin (Guaifenesin 600 Mg Tabcr) 600 mg PO Q12 KARLA Stop: 10/16/23 16:29 Last Admin: 09/18/23 09:04 Dose: 600 mg Pantoprazole Sodium 40 mg/ (Syringe) 10 mls @ 5 mls/min IV BID KARLA Stop: 10/14/23 20:59 Last Admin: 09/18/23 09:07 Dose: 5 mls/min Magnesium Sulfate/Dextrose (Magnesium Sulfate / D5w) 1 gm in 100 mls @ 50 mls/hr IV ONE ONE Stop: 09/18/23 11:54 Insulin Aspart (Insulin Aspart Per Unit Charge) 0 units SC ACHS KARLA Stop: 10/06/23 11:29 Last Admin: 09/18/23 08:35 Dose: Not Given Isosorbide Dinitrate (Isosorbide Dinitrate 10 Mg Tab) 10 mg PO BID@0900,1800 [facility] Stop: 10/14/23 12:14 Last Admin: 09/18/23 09:04 Dose: 10 mg Lactobacillus Acidophilus (Advanced Probiotic 1250 Mg Capsule) 2 cap PO BID KARLA Stop: 10/06/23 08:59 Last Admin: 09/18/23 09:04 Dose: 2 cap Latanoprost (Latanoprost 0.005% Op Soln 2.5 Ml Btl) 1 drops OPB HS KARLA Stop: 10/06/23 20:59 Last Admin: 09/17/23 20:32 Dose: 1 drops Levalbuterol HCl (Levalbuterol 1.25 Mg/3 Ml Neb) 1.25 mg INH Q4H PRN PRN Reason: WHEEZING/SOB/COUGH Stop: 10/05/23 23:48 Metoprolol Succinate (Metoprolol Succ 50mg Ext Rel Tab) 50 mg PO [id number] [facility] Stop: 10/12/23 16:59 Last Admin: 09/18/23 09:05 Dose: 50 mg Miscellaneous (Carbohydrates For Hypoglycemia ) 15 - 30 gm PO UD PRN PRN Reason: Hypoglycemia Protocol Stop: 10/06/23 00:17 Montelukast Sodium (Montelukast Sodium 10 Mg Tablet) 10 mg PO [facility] Stop: 10/06/23 08:59 Last Admin: 09/18/23 09:05 Dose: 10 mg Multivitamins/Minerals (Cerovite Adv Formula Tab) 1 tab [facility] [place] Stop: 10/06/23 08:59 Last Admin: 09/18/23 09:05 Dose: 1 tab Nitroglycerin (Nitroglycerin Sl 0.4 Mg/Tab Tab) 0.4 mg SL Q5M PRN PRN Reason: Chest Pain Stop: 10/05/23 23:48 Ondansetron HCl (Ondansetron Inj 2 Mg/Ml 2 Ml Vial) 4 mg IV Q6H PRN PRN Reason: Nausea Stop: 10/05/23 23:48 Last Admin: 09/06/23 15:18 Dose: 4 mg Oxybutynin Chloride (Oxybutynin Chloride Xl 5 Mg Tabcr) 10 mg PO [facility] Stop: 10/06/23 08:59 Last Admin: 09/13/23 08:24 Dose: 10 mg Prednisone (Prednisone 5 Mg Tab) 5 mg PO [facility] Stop: 10/13/23 10:14 Last Admin: 09/18/23 09:06 Dose: 5 mg Rosuvastatin Calcium (Rosuvastatin Calcium 20 Mg Tab) 20 mg PO [facility] Stop: 10/06/23 20:59 Last Admin: 09/11/23 21:12 Dose: 20 mg Triamcinolone Acetonide (Triamcinolone Acet 0.1% Cr 15 Gm Tube) 1 appln TOP BID PRN PRN Reason: AFFECTED AREA Stop: 10/05/23 23:48 Vitamin D (Cholecalciferol 1,000 Units 25 Mcg Tab) 2,000 units PO QAM [facility] Stop: 10/06/23 08:59 Last Admin: 09/18/23 09:03 Dose: 2,000 units (1) Sepsis Sepsis type: sepsis due to unspecified organism Sepsis acute organ dysfunction status: with acute organ dysfunction Severe sepsis acute organ dysfunction type: encephalopathy Severe sepsis shock status: without septic shock Qualified Code(s): A41.9 - Sepsis, unspecified organism; R65.20 - Severe sepsis without septic shock; G93.41 - Metabolic encephalopathy
[2023-09-18] MEDS: LATANOPROST 0.005% OP SOLN 2.5 ML BTL OPB SCH (20:16)
[2023-09-19 06:21] LABS: Hematocrit (blood only) 26.9 % (37.0-47.0); Hemoglobin 9.2 g/dl (12.0-16.0); Mean Corpuscular Hemoglobin 29.2 pg (25.0-34.0); Mean Corpuscular Hgb Conc 34.2 g/dL (32.0-36.0); Mean Corpuscular Volume 85.4 fL (80.0-100.0); Mean Platelet Volume 9.2 fL (9.4-12.4); Platelet Count 149 K/uL (130-400); RDW Coefficient of Variation 18.8 % (11.5-14.5); RDW Standard Deviation 57.7 fL (36.4-46.3); Red Blood Count 3.15 M/uL (4.20-5.40); White Blood Count 4.67 K/ul (4.8-10.8)
[2023-09-19 06:39] LABS: BUN Creatinine Ratio 44.7 (10-20); Calcium 8.9 mg/dl (8.6-10.3); Creatinine Clr Calc Pharmacy 43.8 ml/min; Est GFR (African American) 68.3 ml/min; Est GFR (Non-African American) 58.9 ml/min; Magnesium 1.8 mg/dl (1.7-2.4); Potassium 4.1 mmol/L (3.5-5.1)
[2023-09-19] MEDS: PANTOprazole 40 MG in SYRINGE 0 ML IV SCH ×2 (08:50→20:23)
[2023-09-19] MEDS: CLOPIDOGREL BISULFATE 75 MG TAB PO SCH (08:50)
[2023-09-19] MEDS: guaiFENesin 600 MG TABCR PO SCH ×2 (08:50→20:23)
[2023-09-19] MEDS: CHOLECALCIFEROL 1,000 UNITS 25 MCG TAB PO SCH (08:51)
[2023-09-19] MEDS: MONTELUKAST SODIUM 10 MG TABLET PO SCH (08:51)
[2023-09-19] MEDS: predniSONE 5 MG TAB PO SCH (08:51)
[2023-09-19] MEDS: CEROVITE ADV FORMULA TAB PO SCH (08:51)
[2023-09-19] MEDS: METOPROLOL SUCC 50MG EXT REL TAB PO SCH ×2 (08:51→17:28)
[2023-09-19] MEDS: ISOSORBIDE DINITRATE 10 MG TAB PO SCH ×2 (08:52→17:27)
[2023-09-19] MEDS: ADVANCED PROBIOTIC 1250 MG CAPSULE PO SCH ×2 (08:52→20:23)
[2023-09-19] MEDS: FOLIC ACID 1 MG TAB PO SCH (08:52)
[2023-09-19] MEDS: DULoxetine HCL 60 MG CAP PO SCH (08:52)
[2023-09-19] MEDS: FLUTICASONE/VILANTEROL 200/25MCG 14 PUFFS/INHALER INH SCH (08:53)
[2023-09-19] MEDS: INSULIN ASPART PER UNIT CHARGE SC SCH ×4 (08:53→20:59)
[2023-09-19] MEDS ORDERED: LOPERAMIDE HCL 2 MG CAP PO PRN (09:26)
--- NOTE | 2023-09-19 09:28 | Hospitalist Progress Note ---
Date of Service September 19, 2023 Assessment & Plan (1) Sepsis: Plan: 75-year-old female with type 2 diabetes, CKD stage III, hyperlipidemia, chronic drug-induced interstitial lung disorders, asthma mild persistent, COPD, chronic right-sided heart failure, hypertension, history of CAD, history of CVA, mild aortic stenosis, paroxysmal atrial fibrillation, moderate protein calorie malnutrition, slow transit constipation, vitamin B-12 and thiamine deficiency, history of esophageal dysphagia, GERD, gout, osteoarthritis, primary open-angle glaucoma, polyneuropathy, rheumatoid arthritis involving multiple sites with positive rheumatoid factor, depression, history of C. difficile, history of COVID, history of fever of unknown origin admitted with fever and lethargy. Sepsis, POA-resolved R lung pneumonia-treated Acute metabolic encephalopathy-resolved Metabolic encephalopathy likely due to sepsis-resolved Neurology consult- -MRI brain without contrast: per neurology no acute concerns -EEG suggestive of encephalopathy Patient presented with fever and lethargy for 2 days. Patient reported sore throat and hoarse voice CT chest- infiltrate on right lung field; small bilateral pleural effusion CT abdomen and pelvisno acute finding CT headno acute finding Urine cultureno growth Blood culturenegative She received 2 days of cefepime and vancomycin followed by 5 days of ertapenem for a full antibiotic course and to treat pneumonia. She is oxygenating well on room air. Repeat chest imaging in 4 weeks time. She has been resuscitated from a sepsis standpoint and this is resolved. She remains afebrile Acute systolic heart failure 2/2 Takotsubo cardiomyopathy NSTEMI History of CAD Paroxysmal atrial fibrillation EKG on admission with atrial fibrillation with diffuse ST depression. High sensitive troponin elevated to 1190; downtrended Echocardiogram 09/06 showed EF of 20 to 25%; large wall motion abnormality with severe hypokinesis to dyskinesis of mid and apical left ventricular myocardial wall. Repeat echo 09/10 showed improved EF of 35-40% Was on IV heparin. Continue GDMT per cardiology Continue on Plavix and statin.--plavix on hold /2 hematochezia - resumed 09/18/23 Continue metoprolol succinate 50 mg twice per day. Add isosorbide dinitrate 10 mg twice daily. Renal function limits use of LILI/Entresto. Takotsubo has resolved - discussed w/ cardiology. Amlodipine may be restarted if BP elevated. Hematochezia-(new 09/14) Abdominal pain Started 09/14 with dark red stool. Heparin was already stopped and plavix held Iron supplement held. Pain across abdomen is resolved now. Given elevated LFTs which may have been related to shock liver, it is possible she may have an ischemic colitis from recent sepsis that is improving repeat CT a/p with IV contrast unremarkable for new findings. At this point, H/H is stable and her vitals are stable which is reassuring. Per GI, clinical picture is not consistent with colitis and bleeding has resolved. Cont holding off on blood thinners for 72 hours and trend H/H. If bleeding returns, consider endoscopic evaluation at that time. Cont IV PPI for now. Elevated liver enzymes Liver Mass Liver enzyme levels increased over hospitalization time poss 10/16 sepsis vs medication side effect. US liver ordered -concerning for increasing liver mass when compared to lesion noted on imaging from Jul 2022, radiology recommending tissue sampling CT abd/pelvis from 09/06 with no noted mass, consider confirming read with radiologist reading that CT GI consult placed- appreciate further recs -recommending outpt IR biopsy on discharge LFTs trending down , Can continue to watch. Consider liver serology with CMV, EBV and acute hepatitis panel. Holding home statin with liver enzyme elevation Possible DKA, resolved Hgb A1c 6.3% Sugars in 300s and had anion gap on admission Initially placed on insulin drip. Not on any medications at home. reports that her blood glucose has been around 110s to 120s most of the time but recently elevated to 200s Continue on subcu insulin. Pharmacy glycemic consult ANDRESSA on CKD stage III, likely prerenal due to sepsis vs cardiorenal Hyponatremia likely due to ANDRESSA Presented with creatinine 1.7 Creatinine elevated to 2, improving slowly with gentle hydration Improved to 1, which is pt's baseline. Continue to encourage p.o. intake. This is likely related to ATN from sepsis. Nephrology was consulted - NEPHRO D/C RECOMMENDATIONS -hospital d/c appt w/ Dr. Gonzalez in [facility] 2-4 wks after d/c w/ BMP, urine and sodium osmolality, ACR, rd urine sodium, UACM to be done about 3 days before appt; labs to be ordered by nephro nurse -also check bmp at [facility] hospital d/c visit Hyponatremia: resolved; attributed to HF. Sodium remains normal today. Patient is not drinking much. recommend continue to monitor daily bmp while in house. not currently on diuretics and this is OK History of asthma History of COPD History of drug-induced interstitial lung disorders Chronic, stable. Continue supportive care as needed. Continue home inhalers History of CVA chronic, stable. Uncertain if any residual deficits. On statin and Preeti vix.plavix resumed now History of C. difficile C diff gene negative at this time (repeated stool study today 09/17/23) Previously on po vancomycin by ID Continued home p.o. vancomycin at this time previous hospitalist Contacted ID to ensure ok to dc vanco given pt's history -per ID ok to dc po Vanc -pt has loose stools, no blood in the stool currently, stool study repeated and negat. for c. diff gene History of esophageal dysphagia Speech consulted; restarting pured diet. hypertension chronic, stable. Cont current therapy. rheumatoid arthritis chronic, stable. Cont holding plaquenil. She was initially started on stress dose hydrocortisone, but is clinically improved so this was stopped. Side effects outweigh the benefits at this point. She was restarted on her chronic prednisone. History of vitamin B1 and B12 deficiency Continue supplementation when more alert. depression chronic, stable. Continue duloxetine DVT prophylaxis: SCDs, chemoprophylaxis contraindicated with possibility of bleeding. Diet: DMII, pureed, nutrition consult placed. DNR/DNI (2) Acute heart failure with reduced ejection fraction and diastolic dysfunction: (3) ANDRESSA (acute kidney injury): (4) Atrial fibrillation with rapid ventricular response: (5) Takotsubo cardiomyopathy: (6) Heart disease: (7) HTN (hypertension): (8) NSTEMI (non-ST elevated myocardial infarction): (9) DM type 2 (diabetes mellitus, type 2): (10) Rheumatoid arthritis: Admission and Anticipated Discharge Date Admission Date: September 05, 2023 Subjective 78 yo F admitted with acute sepsis secondary to pna, NSTEMI, encephalopathy and found to have severe LV systolic dysfunction most consistent with Takotsubo cardiomyopathy. She has been resuscitated from a sepsis standpoint and treated for pneumonia with a 7 day course of IV abx. No evidence of UTI on culture results. She has a h/o rheumatoid arthritis. Currently laying in bed in [facility]. She is answering most simple questions appropriately. Having loose stools - brown, no blood noted by nursing staff, tested and negative for c. diff gene. Plavix was restarted Seen by GI previously - no plans for endoscopy at this time. ANDRESSA resolved - nephrology signed off. Discussed w/ cardiology previously - Takotsubo resolved - cont. higher dose metoprolol Review of Systems Review of Systems: All systems reviewed & are unremarkable except as noted in Subjective Physical Exam Physical Exam: CONSTITUTIONAL: WNWD, in NAD, appears chronically ill EYES: normal conjunctivae, no scleral icterus ENT: external ear and nose normal, edentulous NECK: supple RESPIRATORY: normal respiratory effort, + mild rhonchi, no wheezing. CARDIOVASCULAR: regular rate and rhythm, S1 and 2 heard without murmurs CHEST: inspection of chest normal GASTROINTESTINAL: soft, nontender, nondistended, no guarding MUSCULOSKELETAL: Generalized weakness, head is normocephalic and atraumatic SKIN: warm and dry NEURO/PSYCH: awake, alert, oriented, cooperative, answers simple questions appropriately. speech fluent, moves extremities Results & Data Results & Data Vital Signs (Past 12 Hours) Vital Signs Temp Pulse Pulse Resp BP Pulse Ox O2 Del Method 09/19/23 07:15 36.8 C 71 18 169/74 H 95 Room Air 09/19/23 03:51 36.7 C 72 16 170/66 H 96 Room Air 09/18/23 23:32 36.7 C 66 17 156/78 H 95 Room Air 09/18/23 21:55 67 09/18/23 21:50 Room Air (1) Sepsis Sepsis acute organ dysfunction status: with acute organ dysfunction Sepsis type: sepsis due to unspecified organism Severe sepsis acute organ dysfunction type: encephalopathy Severe sepsis shock status: without septic shock Qualified Code(s): A41.9 - Sepsis, unspecified organism; R65.20 - Severe sepsis without septic shock; G93.41 - Metabolic encephalopathy
[2023-09-19] MEDS: LATANOPROST 0.005% OP SOLN 2.5 ML BTL OPB SCH (20:24)
--- NOTE | 2023-09-20 08:16 | Hospitalist Progress Note ---
Date of Service September 20, 2023 Assessment & Plan (1) Sepsis: Plan: 75-year-old female with type 2 diabetes, CKD stage III, hyperlipidemia, chronic drug-induced interstitial lung disorders, asthma mild persistent, COPD, chronic right-sided heart failure, hypertension, history of CAD, history of CVA, mild aortic stenosis, paroxysmal atrial fibrillation, moderate protein calorie malnutrition, slow transit constipation, vitamin B-12 and thiamine deficiency, history of esophageal dysphagia, GERD, gout, osteoarthritis, primary open-angle glaucoma, polyneuropathy, rheumatoid arthritis involving multiple sites with positive rheumatoid factor, depression, history of C. difficile, history of COVID, history of fever of unknown origin admitted with fever and lethargy. Sepsis, POA-resolved R lung pneumonia-treated Acute metabolic encephalopathy-resolved Metabolic encephalopathy likely due to sepsis-resolved Neurology consult- -MRI brain without contrast: per neurology no acute concerns -EEG suggestive of encephalopathy Patient presented with fever and lethargy for 2 days. Patient reported sore throat and hoarse voice CT chest- infiltrate on right lung field; small bilateral pleural effusion CT abdomen and pelvisno acute finding CT headno acute finding Urine cultureno growth Blood culturenegative She received 2 days of cefepime and vancomycin followed by 5 days of ertapenem for a full antibiotic course and to treat pneumonia. She is oxygenating well on room air. Repeat chest imaging in 4 weeks time. She has been resuscitated from a sepsis standpoint and this is resolved. She remains afebrile Acute systolic heart failure 2/2 Takotsubo cardiomyopathy NSTEMI History of CAD Paroxysmal atrial fibrillation EKG on admission with atrial fibrillation with diffuse ST depression. High sensitive troponin elevated to 1190; downtrended Echocardiogram 09/06 showed EF of 20 to 25%; large wall motion abnormality with severe hypokinesis to dyskinesis of mid and apical left ventricular myocardial wall. Repeat echo 09/10 showed improved EF of 35-40% Was on IV heparin. Continue GDMT per cardiology Continue on Plavix and statin.--plavix on hold /2 hematochezia - resumed 09/18/23 Continue metoprolol succinate 50 mg twice per day. Add isosorbide dinitrate 10 mg twice daily. Renal function limits use of LILI/Entresto. Takotsubo has resolved - discussed w/ cardiology. Amlodipine may be restarted if BP elevated. Hematochezia-(new 09/14) Abdominal pain Started 09/14 with dark red stool. Heparin was already stopped and plavix held Iron supplement held. Pain across abdomen is resolved now. Given elevated LFTs which may have been related to shock liver, it is possible she may have an ischemic colitis from recent sepsis that is improving repeat CT a/p with IV contrast unremarkable for new findings. At this point, H/H is stable and her vitals are stable which is reassuring. Per GI, clinical picture is not consistent with colitis and bleeding has resolved. Cont holding off on blood thinners for 72 hours and trend H/H. If bleeding returns, consider endoscopic evaluation at that time. Cont IV PPI for now. Elevated liver enzymes Liver Mass Liver enzyme levels increased over hospitalization time poss 10/16 sepsis vs medication side effect. US liver ordered -concerning for increasing liver mass when compared to lesion noted on imaging from Jul 2022, radiology recommending tissue sampling CT abd/pelvis from 09/06 with no noted mass, consider confirming read with radiologist reading that CT GI consult placed- appreciate further recs -recommending outpt IR biopsy on discharge LFTs trending down , Can continue to watch. Consider liver serology with CMV, EBV and acute hepatitis panel. Holding home statin with liver enzyme elevation Possible DKA, resolved Hgb A1c 6.3% Sugars in 300s and had anion gap on admission Initially placed on insulin drip. Not on any medications at home. reports that her blood glucose has been around 110s to 120s most of the time but recently elevated to 200s Continue on subcu insulin. Pharmacy glycemic consult ANDRESSA on CKD stage III, likely prerenal due to sepsis vs cardiorenal Hyponatremia likely due to ANDRESSA Presented with creatinine 1.7 Creatinine elevated to 2, improving slowly with gentle hydration Improved to 1, which is pt's baseline. Continue to encourage p.o. intake. This is likely related to ATN from sepsis. Nephrology was consulted - NEPHRO D/C RECOMMENDATIONS -hospital d/c appt w/ Dr. Gonzalez in [facility] /[facility] 2-4 wks after d/c w/ BMP, urine and sodium osmolality, ACR, rd urine sodium, UACM to be done about 3 days before appt; labs to be ordered by nephro nurse -also check bmp at [facility] hospital d/c visit Hyponatremia: resolved; attributed to HF. Sodium remains normal today. Patient is not drinking much. recommend continue to monitor daily bmp while in house. not currently on diuretics and this is OK History of asthma History of COPD History of drug-induced interstitial lung disorders Chronic, stable. Continue supportive care as needed. Continue home inhalers History of CVA chronic, stable. Uncertain if any residual deficits. On statin and Preeti vix.plavix resumed now History of C. difficile C diff gene negative at this time (repeated stool study today 09/17/23) Previously on po vancomycin by ID Continued home p.o. vancomycin at this time previous hospitalist Contacted ID to ensure ok to dc vanco given pt's history -per ID ok to dc po Vanc -pt has loose stools, no blood in the stool currently, stool study repeated and negat. for c. diff gene History of esophageal dysphagia Speech consulted; restarting pured diet. hypertension chronic, stable. Cont current therapy. rheumatoid arthritis chronic, stable. Cont holding plaquenil. She was initially started on stress dose hydrocortisone, but is clinically improved so this was stopped. Side effects outweigh the benefits at this point. She was restarted on her chronic prednisone. History of vitamin B1 and B12 deficiency Continue supplementation when more alert. depression chronic, stable. Continue duloxetine DVT prophylaxis: SCDs, chemoprophylaxis contraindicated with possibility of bleeding. Diet: DMII, pureed, nutrition consult placed. DNR/DNI (2) Acute heart failure with reduced ejection fraction and diastolic dysfunction: (3) ANDRESSA (acute kidney injury): (4) Atrial fibrillation with rapid ventricular response: (5) Takotsubo cardiomyopathy: (6) Heart disease: (7) HTN (hypertension): (8) NSTEMI (non-ST elevated myocardial infarction): (9) DM type 2 (diabetes mellitus, type 2): (10) Rheumatoid arthritis: Admission and Anticipated Discharge Date Admission Date: September 05, 2023 Subjective 78 yo F admitted with acute sepsis secondary to pna, NSTEMI, encephalopathy and found to have severe LV systolic dysfunction most consistent with Takotsubo cardiomyopathy. She has been resuscitated from a sepsis standpoint and treated for pneumonia with a 7 day course of IV abx. No evidence of UTI on culture results. She has a h/o rheumatoid arthritis. Currently laying in bed in [facility]. She is answering most simple questions appropriately. Having loose stools - brown, no blood noted by nursing staff, tested and negative for c. diff gene. Plavix was restarted Seen by GI previously - no plans for endoscopy at this time. ANDRESSA resolved - nephrology signed off. Discussed w/ cardiology previously - Takotsubo resolved - cont. higher dose metoprolol Plan to DC to [facility] CM involved Review of Systems Review of Systems: All systems reviewed & are unremarkable except as noted in Subjective Physical Exam Physical Exam: CONSTITUTIONAL: WNWD, in NAD, appears chronically ill EYES: normal conjunctivae, no scleral icterus ENT: external ear and nose normal, edentulous NECK: supple RESPIRATORY: normal respiratory effort, + mild rhonchi, no wheezing. CARDIOVASCULAR: regular rate and rhythm, S1 and 2 heard without murmurs CHEST: inspection of chest normal GASTROINTESTINAL: soft, nontender, nondistended, no guarding MUSCULOSKELETAL: Generalized weakness, head is normocephalic and atraumatic SKIN: warm and dry NEURO/PSYCH: awake, alert, oriented, cooperative, answers simple questions appropriately. speech fluent, moves extremities Results & Data Results & Data Vital Signs (Past 12 Hours) Vital Signs Temp Pulse Pulse Resp BP Pulse Ox O2 Del Method 09/20/23 07:32 36.6 C 66 20 185/77 H 99 Room Air 09/20/23 07:29 66 09/20/23 03:38 36.7 C 62 18 168/64 H 99 Room Air 09/19/23 23:07 36.8 C 66 16 154/63 H 97 Room Air 09/19/23 21:53 65 09/19/23 21:04 Room Air Medications Administered Current Inpatient Medications Albuterol (Albuterol Hfa 8 Gm Inhaler) 2 puffs INH Q4 PRN PRN Reason: Shortness Of Breath Stop: 10/05/23 23:48 Albuterol (Albuterol 0.083% Nebu Soln 3 Ml Vial) 2.5 mg INH DAILY PRN; Protocol PRN Reason: Shortness Of Breath Or Wheezing Stop: 10/05/23 23:48 Calamine/Phenol (Menthol-Zinc Oxide 360 Appln/120 Gm Tube) 1 appln EXT BID PRN PRN Reason: AFFECTED AREA Stop: 10/05/23 23:48 Clopidogrel Bisulfate (Clopidogrel Bisulfate 75 Mg Tab) 75 mg PO QAM [facility]LA Stop: 10/06/23 08:59 Last Admin: 09/19/23 08:50 Dose: 75 mg Dextrose (Dextrose 50% 50 Ml Syringe) 25 - 50 ml IV UD PRN; Protocol PRN Reason: Hypoglycemia Protocol Stop: 10/06/23 00:17 Duloxetine HCl (Duloxetine Hcl 60 Mg Cap) 60 mg PO QAM [facility] Stop: 10/06/23 08:59 Last Admin: 09/19/23 08:52 Dose: 60 mg Ferrous Sulfate (Ferrous Sulfate 325 Mg Tab) 325 mg PO QAM [facility]ARLA Stop: 10/06/23 08:59 Last Admin: 09/13/23 08:25 Dose: 325 mg Fluticasone/Vilanterol (Fluticasone/Vilanterol 200/25mcg 14 Puffs/Inhaler) 1 puffs INH DAILY [facility]LA Stop: 10/06/23 08:59 Last Admin: 09/19/23 08:53 Dose: 1 puffs Folic Acid (Folic Acid 1 Mg Tab) 1 mg PO QAM KARLA Stop: 10/06/23 08:59 Last Admin: 09/19/23 08:52 Dose: 1 mg Glucagon (Glucagon For Inj 1 Mg Vial) 1 mg SQ UD PRN; Protocol PRN Reason: Hypoglycemia Protocol Stop: 10/06/23 00:17 Glucose (Glucose 10 Tab/Tube) 4 - 8 tab PO UD PRN; Protocol PRN Reason: Hypoglycemia Treatment Stop: 10/06/23 00:17 Glucose (Glucose 40% Gel 15 Gm Tube) 15 - 30 gm PO UD PRN; Protocol PRN Reason: Hypoglycemia Protocol Stop: 10/06/23 00:17 Guaifenesin (Guaifenesin 600 Mg Tabcr) 600 mg PO Q12 [facility] Stop: 10/16/23 16:29 Last Admin: 09/19/23 20:23 Dose: 600 mg Pantoprazole Sodium 40 mg/ (Syringe) 10 mls @ 5 mls/min IV BID [facility] Stop: 10/14/23 20:59 Last Admin: 09/19/23 20:23 Dose: 5 mls/min Insulin Aspart (Insulin Aspart Per Unit Charge) 0 units SC ACHS [facility] Stop: 10/06/23 11:29 Last Admin: 09/19/23 20:59 Dose: Not Given Isosorbide Dinitrate (Isosorbide Dinitrate 10 Mg Tab) 10 mg PO BID@0900,1800 [facility] Stop: 10/14/23 12:14 Last Admin: 09/19/23 17:27 Dose: 10 mg Lactobacillus Acidophilus (Advanced Probiotic 1250 Mg Capsule) 2 cap PO BID [facility] Stop: 10/06/23 08:59 Last Admin: 09/19/23 20:23 Dose: 2 cap Latanoprost (Latanoprost 0.005% Op Soln 2.5 Ml Btl) 1 drops OPB HS [facility] Stop: 10/06/23 20:59 Last Admin: 09/19/23 20:24 Dose: 1 drops Levalbuterol HCl (Levalbuterol 1.25 Mg/3 Ml Neb) 1.25 mg INH Q4H PRN PRN Reason: WHEEZING/SOB/COUGH Stop: 10/05/23 23:48 Loperamide HCl (Loperamide Hcl 2 Mg Cap) 2 mg PO TID PRN PRN Reason: Diarrhea Stop: 10/19/23 09:25 Last Admin: 09/19/23 20:25 Dose: 2 mg Metoprolol Succinate (Metoprolol Succ 50mg Ext Rel Tab) 50 mg PO BID17 [facility] Stop: 10/12/23 16:59 Last Admin: 09/19/23 17:28 Dose: 50 mg Miscellaneous (Carbohydrates For Hypoglycemia ) 15 - 30 gm PO UD PRN PRN Reason: Hypoglycemia Protocol Stop: 10/06/23 00:17 Montelukast Sodium (Montelukast Sodium 10 Mg Tablet) 10 mg PO QAM [facility] Stop: 10/06/23 08:59 Last Admin: 09/19/23 08:51 Dose: 10 mg Multivitamins/Minerals (Cerovite Adv Formula Tab) 1 tab PO QAM [facility] Stop: 10/06/23 08:59 Last Admin: 09/19/23 08:51 Dose: 1 tab Nitroglycerin (Nitroglycerin Sl 0.4 Mg/Tab Tab) 0.4 mg SL Q5M PRN PRN Reason: Chest Pain Stop: 10/05/23 23:48 Ondansetron HCl (Ondansetron Inj 2 Mg/Ml 2 Ml Vial) 4 mg IV Q6H PRN PRN Reason: Nausea Stop: 10/05/23 23:48 Last Admin: 09/06/23 15:18 Dose: 4 mg Oxybutynin Chloride (Oxybutynin Chloride Xl 5 Mg Tabcr) [facility]: 10/06/23 08:59 Last Admin: 09/13/23 08:24 Dose: 10 mg Prednisone (Prednisone 5 Mg Tab) [facility] [place]: 10/13/23 10:14 Last Admin: 09/19/23 08:51 Dose: 5 mg Rosuvastatin Calcium (Rosuvastatin Calcium 20 Mg Tab) 20 mg PO [facility] Stop: 10/06/23 20:59 Last Admin: 09/11/23 21:12 Dose: 20 mg Triamcinolone Acetonide (Triamcinolone Acet 0.1% Cr 15 Gm Tube) 1 appln TOP BID PRN PRN Reason: AFFECTED AREA Stop: 10/05/23 23:48 Vitamin D (Cholecalciferol 1,000 Units 25 Mcg Tab) 2,000 units PO [facility] Stop: 10/06/23 08:59 Last Admin: 09/19/23 08:51 Dose: 2,000 units (1) Sepsis Sepsis acute organ dysfunction status: with acute organ dysfunction Sepsis type: sepsis due to unspecified organism Severe sepsis acute organ dysfunction type: encephalopathy Severe sepsis shock status: without septic shock Qualified Code(s): A41.9 - Sepsis, unspecified organism; R65.20 - Severe sepsis without septic shock; G93.41 - Metabolic encephalopathy
[2023-09-20] MEDS: guaiFENesin 600 MG TABCR PO SCH ×2 (08:38→20:40)
[2023-09-20] MEDS: PANTOprazole 40 MG in SYRINGE 0 ML IV SCH ×2 (08:38→20:40)
[2023-09-20] MEDS: METOPROLOL SUCC 50MG EXT REL TAB PO SCH ×2 (08:39→17:17)
[2023-09-20] MEDS: CLOPIDOGREL BISULFATE 75 MG TAB PO SCH (08:39)
[2023-09-20] MEDS: ADVANCED PROBIOTIC 1250 MG CAPSULE PO SCH ×2 (08:39→20:39)
[2023-09-20] MEDS: CHOLECALCIFEROL 1,000 UNITS 25 MCG TAB PO SCH (08:39)
[2023-09-20] MEDS: ISOSORBIDE DINITRATE 10 MG TAB PO SCH ×2 (08:39→17:17)
[2023-09-20] MEDS: CEROVITE ADV FORMULA TAB PO SCH (08:40)
[2023-09-20] MEDS: MONTELUKAST SODIUM 10 MG TABLET PO SCH (08:40)
[2023-09-20] MEDS: DULoxetine HCL 60 MG CAP PO SCH (08:40)
[2023-09-20] MEDS: FLUTICASONE/VILANTEROL 200/25MCG 14 PUFFS/INHALER INH SCH (08:40)
[2023-09-20] MEDS: predniSONE 5 MG TAB PO SCH (08:40)
[2023-09-20] MEDS: FOLIC ACID 1 MG TAB PO SCH (08:40)
[2023-09-20] MEDS: INSULIN ASPART PER UNIT CHARGE SC SCH ×4 (08:42→20:40)
[2023-09-20] MEDS: LATANOPROST 0.005% OP SOLN 2.5 ML BTL OPB SCH (20:40)
[2023-09-21] MEDS: FLUTICASONE/VILANTEROL 200/25MCG 14 PUFFS/INHALER INH SCH (08:57)
[2023-09-21] MEDS: METOPROLOL SUCC 50MG EXT REL TAB PO SCH ×2 (08:58→17:44)
[2023-09-21] MEDS: ADVANCED PROBIOTIC 1250 MG CAPSULE PO SCH ×2 (08:58→20:41)
[2023-09-21] MEDS: CLOPIDOGREL BISULFATE 75 MG TAB PO SCH (08:58)
[2023-09-21] MEDS: FOLIC ACID 1 MG TAB PO SCH (08:59)
[2023-09-21] MEDS: ISOSORBIDE DINITRATE 10 MG TAB PO SCH ×2 (08:59→17:44)
[2023-09-21] MEDS: INSULIN ASPART PER UNIT CHARGE SC SCH ×4 (09:06→20:42)
[2023-09-21 09:28] LABS: Hematocrit (blood only) 31.5 % (37.0-47.0); Hemoglobin 10.3 g/dl (12.0-16.0)
[2023-09-21] MEDS: guaiFENesin 600 MG TABCR PO SCH ×2 (10:53→20:41)
[2023-09-21] MEDS: CHOLECALCIFEROL 1,000 UNITS 25 MCG TAB PO SCH (10:53)
[2023-09-21] MEDS: DULoxetine HCL 60 MG CAP PO SCH (10:53)
[2023-09-21] MEDS: PANTOprazole 40 MG in SYRINGE 0 ML IV SCH ×2 (10:53→20:42)
[2023-09-21] MEDS: MONTELUKAST SODIUM 10 MG TABLET PO SCH (10:54)
[2023-09-21] MEDS: predniSONE 5 MG TAB PO SCH (10:54)
[2023-09-21] MEDS: CEROVITE ADV FORMULA TAB PO SCH (10:54)
--- NOTE | 2023-09-21 13:19 | Hospitalist Progress Note ---
Date of Service September 21, 2023 Assessment & Plan (1) Sepsis: Plan: 75-year-old female with type 2 diabetes, CKD stage III, hyperlipidemia, chronic drug-induced interstitial lung disorders, asthma mild persistent, COPD, chronic right-sided heart failure, hypertension, history of CAD, history of CVA, mild aortic stenosis, paroxysmal atrial fibrillation, moderate protein calorie malnutrition, slow transit constipation, vitamin B-12 and thiamine deficiency, history of esophageal dysphagia, GERD, gout, osteoarthritis, primary open-angle glaucoma, polyneuropathy, rheumatoid arthritis involving multiple sites with positive rheumatoid factor, depression, history of C. difficile, history of COVID, history of fever of unknown origin admitted with fever and lethargy. Sepsis, POA-resolved R lung pneumonia-treated Acute metabolic encephalopathy-resolved Metabolic encephalopathy likely due to sepsis-resolved Neurology consult- -MRI brain without contrast: per neurology no acute concerns -EEG suggestive of encephalopathy Patient presented with fever and lethargy for 2 days. Patient reported sore throat and hoarse voice CT chest- infiltrate on right lung field; small bilateral pleural effusion CT abdomen and pelvisno acute finding CT headno acute finding Urine cultureno growth Blood culturenegative She received 2 days of cefepime and vancomycin followed by 5 days of ertapenem for a full antibiotic course and to treat pneumonia. She is oxygenating well on room air. Repeat chest imaging in 4 weeks time. She has been resuscitated from a sepsis standpoint and this is resolved. She remains afebrile Acute systolic heart failure 2/2 Takotsubo cardiomyopathy NSTEMI History of CAD Paroxysmal atrial fibrillation EKG on admission with atrial fibrillation with diffuse ST depression. High sensitive troponin elevated to 1190; downtrended Echocardiogram 09/06 showed EF of 20 to 25%; large wall motion abnormality with severe hypokinesis to dyskinesis of mid and apical left ventricular myocardial wall. Repeat echo 09/10 showed improved EF of 35-40% Was on IV heparin. Continue GDMT per cardiology Continue on Plavix and statin.--plavix on hold /2 hematochezia - resumed 09/18/23 Continue metoprolol succinate 50 mg twice per day. Add isosorbide dinitrate 10 mg twice daily. Renal function limits use of LILI/Entresto. Takotsubo has resolved - discussed w/ cardiology. Amlodipine may be restarted if BP elevated. Hematochezia-(new 09/14) Abdominal pain Started 09/14 with dark red stool. Heparin was already stopped and plavix held Iron supplement held. Pain across abdomen is resolved now. Given elevated LFTs which may have been related to shock liver, it is possible she may have an ischemic colitis from recent sepsis that is improving repeat CT a/p with IV contrast unremarkable for new findings. At this point, H/H is stable and her vitals are stable which is reassuring. Per GI, clinical picture is not consistent with colitis and bleeding has resolved. Cont holding off on blood thinners for 72 hours and trend H/H. If bleeding returns, consider endoscopic evaluation at that time. Cont IV PPI for now. No bleeding thus far since plavix resumed (resumed on 09/18). Hgb stable Elevated liver enzymes Liver Mass Liver enzyme levels increased over hospitalization time poss / sepsis vs medication side effect. US liver ordered -concerning for increasing liver mass when compared to lesion noted on imaging from Jul 2022, radiology recommending tissue sampling CT abd/pelvis from 09/06 with no noted mass, consider confirming read with radiologist reading that CT GI consult placed- appreciate further recs -recommending outpt IR biopsy on discharge LFTs trending down , Can continue to watch. Consider liver serology with CMV, EBV and acute hepatitis panel. Holding home statin with liver enzyme elevation Possible DKA, resolved Hgb A1c 6.3% Sugars in 300s and had anion gap on admission Initially placed on insulin drip. Not on any medications at home. reports that her blood glucose has been around 110s to 120s most of the time but recently elevated to 200s Continue on subcu insulin. Pharmacy glycemic consult ANDRESSA on CKD stage III, likely prerenal due to sepsis vs cardiorenal Hyponatremia likely due to ANDRESSA Presented with creatinine 1.7 Creatinine elevated to 2, improving slowly with gentle hydration Improved to 1, which is pt's baseline. Continue to encourage p.o. intake. This is likely related to ATN from sepsis. Nephrology was consulted - NEPHRO D/C RECOMMENDATIONS -hospital d/c appt w/ Dr. Gonzalez in [place] 2-4 wks after d/c w/ BMP, urine and sodium osmolality, ACR, rd urine sodium, UACM to be done about 3 days before appt; labs to be ordered by nephro nurse -also check bmp at [facility] hospital d/c visit Hyponatremia: resolved; attributed to HF. Sodium remains normal today. Patient is not drinking much. recommend continue to monitor daily bmp while in house. not currently on diuretics and this is OK History of asthma History of COPD History of drug-induced interstitial lung disorders Chronic, stable. Continue supportive care as needed. Continue home inhalers History of CVA chronic, stable. Uncertain if any residual deficits. On statin and Plavix.plavix resumed now History of C. difficile C diff gene negative at this time (repeated stool study today 09/17/23) Previously on po vancomycin by ID Continued home p.o. vancomycin at this time previous hospitalist Contacted ID to ensure ok to dc vanco given pt's history -per ID ok to dc po Vanc -pt has loose stools, no blood in the stool currently, stool study repeated and negat. for c. diff gene History of esophageal dysphagia Speech consulted; restarting pured diet. hypertension chronic, stable. Cont current therapy. rheumatoid arthritis chronic, stable. Cont holding plaquenil. She was initially started on stress dose hydrocortisone, but is clinically improved so this was stopped. Side effects outweigh the benefits at this point. She was restarted on her chronic prednisone. History of vitamin B1 and B12 deficiency Continue supplementation when more alert. depression chronic, stable. Continue duloxetine DVT prophylaxis: SCDs, chemoprophylaxis contraindicated with possibility of bleeding. Diet: DMII, pureed, nutrition consult placed. DNR/DNI (2) Acute heart failure with reduced ejection fraction and diastolic dysfunction: (3) ANDRESSA (acute kidney injury): (4) Atrial fibrillation with rapid ventricular response: (5) Takotsubo cardiomyopathy: (6) Heart disease: (7) HTN (hypertension): (8) NSTEMI (non-ST elevated myocardial infarction): (9) DM type 2 (diabetes mellitus, type 2): (10) Rheumatoid arthritis: Admission and Anticipated Discharge Date Admission Date: September 05, 2023 Subjective 78 yo F admitted with acute sepsis secondary to pna, NSTEMI, encephalopathy and found to have severe LV systolic dysfunction most consistent with Takotsubo cardiomyopathy. She has been resuscitated from a sepsis standpoint and treated for pneumonia with a 7 day course of IV abx. No evidence of UTI on culture results. She has a h/o rheumatoid arthritis. Currently laying in bed in NAD. She is answering most simple questions appropriately. Having loose stools - brown, no blood noted by nursing staff, tested and negative for c. diff gene. Plavix was restarted Seen by GI previously - no plans for endoscopy at this time. ANDRESSA resolved - nephrology signed off. Discussed w/ cardiology previously - Takotsubo resolved - cont. higher dose metoprolol Plan to DC to [facility] CM involved Review of Systems Review of Systems: All systems reviewed & are unremarkable except as noted in Subjective Physical Exam Physical Exam: CONSTITUTIONAL: WNWD, in NAD, appears chronically ill EYES: normal conjunctivae, no scleral icterus ENT: external ear and nose normal, edentulous NECK: supple RESPIRATORY: normal respiratory effort, + mild rhonchi, no wheezing. CARDIOVASCULAR: regular rate and rhythm, S1 and 2 heard without murmurs CHEST: inspection of chest normal GASTROINTESTINAL: soft, nontender, nondistended, no guarding MUSCULOSKELETAL: Generalized weakness, head is normocephalic and atraumatic SKIN: warm and dry NEURO/PSYCH: awake, alert, oriented, cooperative, answers simple questions appropriately. speech fluent, moves extremities Results & Data Results & Data Vital Signs (Past 12 Hours) Vital Signs Temp Pulse Resp BP Pulse Ox O2 Del Method 09/21/23 11:11 36.6 C 77 18 95/52 L 99 Room Air 09/21/23 08:00 Room Air 09/21/23 07:28 36.5 C 67 18 132/72 100 Room Air 09/21/23 03:25 38.6 C H 73 18 160/74 H 99 Room Air Laboratory Results 09/21/23 09/21/23 09/21/23 Range/Units 11:44 08:58 07:53 Hgb 10.3 L (12.0-16.0) g/dl Hct 31.5 L (37.0-47.0) % POC Glucose 206 H 99 (70-99) mg/dl 09/20/23 09/20/23 Range/Units 20:23 16:31 Hgb (12.0-16.0) g/dl Hct (37.0-47.0) % POC Glucose 167 H 136 H (70-99) mg/dl Medications Administered Current Inpatient Medications Albuterol (Albuterol Hfa 8 Gm Inhaler) 2 puffs INH Q4 PRN PRN Reason: Shortness Of Breath Stop: 10/05/23 23:48 Albuterol (Albuterol 0.083% Nebu Soln 3 Ml Vial) 2.5 mg INH DAILY PRN; Protocol PRN Reason: Shortness Of Breath Or Wheezing Stop: 10/05/23 23:48 Calamine/Phenol (Menthol-Zinc Oxide 360 Appln/120 Gm Tube) 1 appln EXT BID PRN PRN Reason: AFFECTED AREA Stop: 10/05/23 23:48 Clopidogrel Bisulfate (Clopidogrel Bisulfate 75 Mg Tab) [address] [facility] Stop: 10/06/23 08:59 Last Admin: 09/21/23 08:58 Dose: 75 mg Dextrose (Dextrose 50% 50 Ml Syringe) 25 - 50 ml IV UD PRN; Protocol PRN Reason: Hypoglycemia Protocol Stop: 10/06/23 00:17 Duloxetine HCl (Duloxetine Hcl 60 Mg Cap) [facility] [place] Stop: 10/06/23 08:59 Last Admin: 09/21/23 10:53 Dose: 60 mg Ferrous Sulfate (Ferrous Sulfate 325 Mg Tab) 325 [facility] [place] Stop: 10/06/23 08:59 Last Admin: 09/13/23 08:25 Dose: 325 mg Fluticasone/Vilanterol (Fluticasone/Vilanterol 200/25mcg 14 Puffs/Inhaler) [address] [facility] Stop: 10/06/23 08:59 Last Admin: 09/21/23 08:57 Dose: 1 puffs Folic Acid (Folic Acid 1 Mg Tab) [address] [facility] Stop: 10/06/23 08:59 Last Admin: 09/21/23 08:59 Dose: 1 mg Glucagon (Glucagon For Inj 1 Mg Vial) 1 mg SQ UD PRN; Protocol PRN Reason: Hypoglycemia Protocol Stop: 10/06/23 00:17 Glucose (Glucose 10 Tab/Tube) 4 - 8 tab PO UD PRN; Protocol PRN Reason: Hypoglycemia Treatment Stop: 10/06/23 00:17 Glucose (Glucose 40% Gel 15 Gm Tube) 15 - 30 gm PO UD PRN; Protocol PRN Reason: Hypoglycemia Protocol Stop: 10/06/23 00:17 Guaifenesin (Guaifenesin 600 Mg Tabcr) [address] [facility] Stop: 10/16/23 16:29 Last Admin: 09/21/23 10:53 Dose: 600 mg Pantoprazole Sodium 40 mg/ (Syringe) 10 mls @ 5 mls/min IV BID [facility] Stop: 10/14/23 20:59 Last Admin: 09/21/23 10:53 Dose: 5 mls/min Insulin Aspart (Insulin Aspart Per Unit Charge) [address] [facility] Stop: 10/06/23 11:29 Last Admin: 09/21/23 12:34 Dose: 4 units Isosorbide Dinitrate (Isosorbide Dinitrate 10 Mg Tab) 10 mg PO BID@0900,1800 [facility] Stop: 10/14/23 12:14 Last Admin: 09/21/23 08:59 Dose: 10 mg Lactobacillus Acidophilus (Advanced Probiotic 1250 Mg Capsule) [address] [facility] Stop: 10/06/23 08:59 Last Admin: 09/21/23 08:58 Dose: 2 cap Latanoprost (Latanoprost 0.005% Op Soln 2.5 Ml Btl) [address] [facility] Stop: 10/06/23 20:59 Last Admin: 09/20/23 20:40 Dose: 1 drops Levalbuterol HCl (Levalbuterol 1.25 Mg/3 Ml Neb) 1.25 mg INH Q4H PRN PRN Reason: WHEEZING/SOB/COUGH Stop: 10/05/23 23:48 Loperamide HCl (Loperamide Hcl 2 Mg Cap) 2 mg PO TID PRN PRN Reason: Diarrhea Stop: 10/19/23 09:25 Last Admin: 09/19/23 20:25 Dose: 2 mg Metoprolol Succinate (Metoprolol Succ 50mg Ext Rel Tab) [address] [facility] Stop: 10/12/23 16:59 Last Admin: 09/21/23 08:58 Dose: 50 mg Miscellaneous (Carbohydrates For Hypoglycemia ) 15 - 30 gm PO UD PRN PRN Reason: Hypoglycemia Protocol Stop: 10/06/23 00:17 Montelukast Sodium (Montelukast Sodium 10 Mg Tablet) [address] [facility] Stop: 10/06/23 08:59 Last Admin: 09/21/23 10:54 Dose: 10 mg Multivitamins/Minerals (Cerovite Adv Formula Tab) [address] [facility] Stop: 10/06/23 08:59 Last Admin: 09/21/23 10:54 Dose: 1 tab Nitroglycerin (Nitroglycerin Sl 0.4 Mg/Tab Tab) 0.4 mg SL Q5M PRN PRN Reason: Chest Pain Stop: 10/05/23 23:48 Ondansetron HCl (Ondansetron Inj 2 Mg/Ml 2 Ml Vial) 4 mg IV Q6H PRN PRN Reason: Nausea Stop: 10/05/23 23:48 Last Admin: 09/06/23 15:18 Dose: 4 mg Oxybutynin Chloride (Oxybutynin Chloride Xl 5 Mg Tabcr) 10 mg PO [facility] Stop: 10/06/23 08:59 Last Admin: 09/13/23 08:24 Dose: 10 mg Prednisone (Prednisone 5 Mg Tab) 5 mg PO [facility] Stop: 10/13/23 10:14 Last Admin: 09/21/23 10:54 Dose: 5 mg Rosuvastatin Calcium (Rosuvastatin Calcium 20 Mg Tab) 20 mg PO [facility] Stop: 10/06/23 20:59 Last Admin: 09/11/23 21:12 Dose: 20 mg Triamcinolone Acetonide (Triamcinolone Acet 0.1% Cr 15 Gm Tube) 1 appln TOP BID PRN PRN Reason: AFFECTED AREA Stop: 10/05/23 23:48 Vitamin D (Cholecalciferol 1,000 Units 25 Mcg Tab) 2,000 units PO [facility] Stop: 10/06/23 08:59 Last Admin: 09/21/23 10:53 Dose: 2,000 units (1) Sepsis Sepsis type: sepsis due to unspecified organism Sepsis acute organ dysfunction status: with acute organ dysfunction Severe sepsis acute organ dysfunction type: encephalopathy Severe sepsis shock status: without septic shock Qualified Code(s): A41.9 - Sepsis, unspecified organism; R65.20 - Severe sepsis without septic shock; G93.41 - Metabolic encephalopathy
[2023-09-21] MEDS: LATANOPROST 0.005% OP SOLN 2.5 ML BTL OPB SCH (20:42)
[2023-09-22] MEDS: INSULIN ASPART PER UNIT CHARGE SC SCH ×2 (08:45→13:03)
[2023-09-22] MEDS: CHOLECALCIFEROL 1,000 UNITS 25 MCG TAB PO SCH (08:55)
[2023-09-22] MEDS: CLOPIDOGREL BISULFATE 75 MG TAB PO SCH (08:56)
[2023-09-22] MEDS: FOLIC ACID 1 MG TAB PO SCH (08:56)
[2023-09-22] MEDS: DULoxetine HCL 60 MG CAP PO SCH (08:56)
[2023-09-22] MEDS: ADVANCED PROBIOTIC 1250 MG CAPSULE PO SCH (08:57)
[2023-09-22] MEDS: guaiFENesin 600 MG TABCR PO SCH (08:57)
[2023-09-22] MEDS: ISOSORBIDE DINITRATE 10 MG TAB PO SCH (08:57)
[2023-09-22] MEDS: METOPROLOL SUCC 50MG EXT REL TAB PO SCH (08:57)
[2023-09-22] MEDS: CEROVITE ADV FORMULA TAB PO SCH (08:58)
[2023-09-22] MEDS: predniSONE 5 MG TAB PO SCH (08:58)
[2023-09-22] MEDS: MONTELUKAST SODIUM 10 MG TABLET PO SCH (08:58)
[2023-09-22] MEDS: PANTOprazole 40 MG in SYRINGE 0 ML IV SCH (08:59)
[2023-09-22] MEDS: FLUTICASONE/VILANTEROL 200/25MCG 14 PUFFS/INHALER INH SCH (10:04)
--- NOTE | 2023-09-22 11:05 | Hospitalist Progress Note ---
Date of Service September 22, 2023 Assessment & Plan (1) Sepsis: Plan: 75-year-old female with type 2 diabetes, CKD stage III, hyperlipidemia, chronic drug-induced interstitial lung disorders, asthma mild persistent, COPD, chronic right-sided heart failure, hypertension, history of CAD, history of CVA, mild aortic stenosis, paroxysmal atrial fibrillation, moderate protein calorie malnutrition, slow transit constipation, vitamin B-12 and thiamine deficiency, history of esophageal dysphagia, GERD, gout, osteoarthritis, primary open-angle glaucoma, polyneuropathy, rheumatoid arthritis involving multiple sites with positive rheumatoid factor, depression, history of C. difficile, history of COVID, history of fever of unknown origin admitted with fever and lethargy. Sepsis, POA-resolved R lung pneumonia-treated Acute metabolic encephalopathy-resolved Metabolic encephalopathy likely due to sepsis-resolved Neurology consult- -MRI brain without contrast: per neurology no acute concerns -EEG suggestive of encephalopathy Patient presented with fever and lethargy for 2 days. Patient reported sore throat and hoarse voice CT chest- infiltrate on right lung field; small bilateral pleural effusion CT abdomen and pelvisno acute finding CT headno acute finding Urine cultureno growth Blood culturenegative She received 2 days of cefepime and vancomycin followed by 5 days of ertapenem for a full antibiotic course and to treat pneumonia. She is oxygenating well on room air. Repeat chest imaging in 4 weeks time. She has been resuscitated from a sepsis standpoint and this is resolved. She remains afebrile Acute systolic heart failure 2/2 Takotsubo cardiomyopathy NSTEMI History of CAD Paroxysmal atrial fibrillation EKG on admission with atrial fibrillation with diffuse ST depression. High sensitive troponin elevated to 1190; downtrended Echocardiogram 09/06 showed EF of 20 to 25%; large wall motion abnormality with severe hypokinesis to dyskinesis of mid and apical left ventricular myocardial wall. Repeat echo 09/10 showed improved EF of 35-40% Was on IV heparin. Continue GDMT per cardiology Continue on Plavix and statin.--plavix on hold 10/16 hematochezia - resumed 09/18/23 Continue metoprolol succinate 50 mg twice per day. Added isosorbide dinitrate 10 mg twice daily. Renal function limits use of LILI/Entresto. Takotsubo has resolved - discussed w/ cardiology. Amlodipine 2.5 mg daily may be restarted if BP elevated. Hematochezia-(new 09/14) Abdominal pain Started 09/14 with dark red stool. Heparin was already stopped and plavix held Iron supplement held. Pain across abdomen is resolved now. Given elevated LFTs which may have been related to shock liver, it is possible she may have an ischemic colitis from recent sepsis that is improving repeat CT a/p with IV contrast unremarkable for new findings. At this point, H/H is stable and her vitals are stable which is reassuring. Per GI, clinical picture is not consistent with colitis and bleeding has resolved. Cont holding off on blood thinners for 72 hours and trend H/H. If bleeding returns, consider endoscopic evaluation at that time. Cont IV PPI -> switch to PO No bleeding thus far since plavix resumed (resumed on 09/18). Hgb stable Elevated liver enzymes Liver Mass Liver enzyme levels increased over hospitalization time poss 10/16 sepsis vs medication side effect. US liver ordered -concerning for increasing liver mass when compared to lesion noted on imaging from Jul 2022, radiology recommending tissue sampling CT abd/pelvis from 09/06 with no noted mass, consider confirming read with radiologist reading that CT GI consult placed- appreciate further recs -recommending outpt IR biopsy on discharge LFTs trending down , Can continue to watch. Consider liver serology with CMV, EBV and acute hepatitis panel. Held home statin with liver enzyme elevation, can resume on DC Possible DKA, resolved Hgb A1c 6.3% Sugars in 300s and had anion gap on admission Initially placed on insulin drip. Not on any medications at home. reports that her blood glucose has been around 110s to 120s most of the time but recently elevated to 200s Continue on subcu insulin. Pharmacy glycemic consult ANDRESSA on CKD stage III, likely prerenal due to sepsis vs cardiorenal Hyponatremia likely due to ANDRESSA Presented with creatinine 1.7 Creatinine elevated to 2, improving slowly with gentle hydration Improved to 1, which is pt's baseline. Continue to encourage p.o. intake. This is likely related to ATN from sepsis. Nephrology was consulted - NEPHRO D/C RECOMMENDATIONS -hospital d/c appt w/ Dr. Gonzalez in [facility] 2-4 wks after d/c w/ BMP, urine and sodium osmolality, ACR, rd urine sodium, UACM to be done about 3 days before appt; labs to be ordered by nephro nurse -also check bmp at PCP hospital d/c visit Hyponatremia: resolved; attributed to HF. Sodium remains normal today. Patient is not drinking much. recommend continue to monitor daily bmp while in house. not currently on diuretics and this is OK History of asthma History of COPD History of drug-induced interstitial lung disorders Chronic, stable. Continue supportive care as needed. Continue home inhalers History of CVA chronic, stable. Uncertain if any residual deficits. On statin and Plavix.plavix resumed now History of C. difficile C diff gene negative at this time (repeated stool study today 09/17/23) Previously on po vancomycin by ID Continued home p.o. vancomycin at this time previous hospitalist Contacted ID to ensure ok to dc vanco given pt's history -per ID ok to dc po Vanc -pt has loose stools, no blood in the stool currently, stool study repeated and negat. for c. diff gene History of esophageal dysphagia Speech consulted; restarting pured diet. hypertension chronic, stable. Cont current therapy. rheumatoid arthritis chronic, stable. Cont holding plaquenil. She was initially started on stress dose hydrocortisone, but is clinically improved so this was stopped. Side effects outweigh the benefits at this point. She was restarted on her chronic prednisone. Discuss resuming plaquenil w/ pcp and/ or reliability technologist History of vitamin B1 and B12 deficiency Continue supplementation when more alert. depression chronic, stable. Continue duloxetine DVT prophylaxis: SCDs, chemoprophylaxis contraindicated with possibility of bleeding. Diet: DMII, pureed, nutrition consult placed. DNR/DNI (2) Acute heart failure with reduced ejection fraction and diastolic dysfunction: (3) ANDRESSA (acute kidney injury): (4) Atrial fibrillation with rapid ventricular response: (5) Takotsubo cardiomyopathy: (6) Heart disease: (7) HTN (hypertension): (8) NSTEMI (non-ST elevated myocardial infarction): (9) DM type 2 (diabetes mellitus, type 2): (10) Rheumatoid arthritis: Admission and Anticipated Discharge Date Admission Date: September 05, 2023 Subjective 78 yo F admitted with acute sepsis secondary to pna, NSTEMI, encephalopathy and found to have severe LV systolic dysfunction most consistent with Takotsubo cardiomyopathy. She has been resuscitated from a sepsis standpoint and treated for pneumonia with a 7 day course of IV abx. No evidence of UTI on culture results. She has a h/o rheumatoid arthritis. Currently laying in bed in NAD. She is answering simple questions appropriately. Having loose stools - brown, no blood noted by nursing staff, tested and negative for c. diff gene. Plavix was restarted Seen by GI previously - no plans for endoscopy at this time. ANDRESSA resolved - nephrology signed off. Discussed w/ cardiology previously - Takotsubo resolved - cont. higher dose metoprolol Plan to DC to [facility] CM involved Review of Systems Review of Systems: All systems reviewed & are unremarkable except as noted in Subjective Physical Exam Physical Exam: CONSTITUTIONAL: WNWD, in NAD, appears chronically ill EYES: normal conjunctivae, no scleral icterus ENT: external ear and nose normal, edentulous NECK: supple RESPIRATORY: normal respiratory effort, + mild rhonchi, no wheezing. CARDIOVASCULAR: regular rate and rhythm, S1 and 2 heard without murmurs CHEST: inspection of chest normal GASTROINTESTINAL: soft, nontender, nondistended, no guarding MUSCULOSKELETAL: Generalized weakness, head is normocephalic and atraumatic SKIN: warm and dry NEURO/PSYCH: awake, alert, oriented, cooperative, answers simple questions appropriately. speech fluent, moves extremities Results & Data Results & Data Vital Signs (Past 12 Hours) Vital Signs Temp Pulse Resp BP Pulse Ox O2 Del Method 09/22/23 08:00 Room Air 09/22/23 07:27 36.5 C 65 19 145/55 H 97 Room Air 09/22/23 03:06 36.5 C 71 18 168/74 H 97 Room Air 09/21/23 23:37 36.7 C 68 18 152/70 H 99 Room Air Medications Administered Current Inpatient Medications Albuterol (Albuterol Hfa 8 Gm Inhaler) 2 puffs INH Q4 PRN PRN Reason: Shortness Of Breath Stop: 10/05/23 23:48 Albuterol (Albuterol 0.083% Nebu Soln 3 Ml Vial) 2.5 mg INH DAILY PRN; Protocol PRN Reason: Shortness Of Breath Or Wheezing Stop: 10/05/23 23:48 Calamine/Phenol (Menthol-Zinc Oxide 360 Appln/120 Gm Tube) 1 appln EXT BID PRN PRN Reason: AFFECTED AREA Stop: 10/05/23 23:48 Clopidogrel Bisulfate (Clopidogrel Bisulfate 75 Mg Tab) 75 mg PO QAM [facility] Stop: 10/06/23 08:59 Last Admin: 09/22/23 08:56 Dose: 75 mg Dextrose (Dextrose 50% 50 Ml Syringe) 25 - 50 ml IV UD PRN; Protocol PRN Reason: Hypoglycemia Protocol Stop: 10/06/23 00:17 Duloxetine HCl (Duloxetine Hcl 60 Mg Cap) 60 mg PO QAM [facility] Stop: 10/06/23 08:59 Last Admin: 09/22/23 08:56 Dose: 60 mg Ferrous Sulfate (Ferrous Sulfate 325 Mg Tab) 325 mg PO QAM [facility] Stop: 10/06/23 08:59 Last Admin: 09/13/23 08:25 Dose: 325 mg Fluticasone/Vilanterol (Fluticasone/Vilanterol 200/25mcg 14 Puffs/Inhaler) 1 puffs INH DAILY [facility] Stop: 10/06/23 08:59 Last Admin: 09/22/23 10:04 Dose: 1 puffs Folic Acid (Folic Acid 1 Mg Tab) 1 mg PO QAM [facility] Stop: 10/06/23 08:59 Last Admin: 09/22/23 08:56 Dose: 1 mg Glucagon (Glucagon For Inj 1 Mg Vial) 1 mg SQ UD PRN; Protocol PRN Reason: Hypoglycemia Protocol Stop: 10/06/23 00:17 Glucose (Glucose 10 Tab/Tube) 4 - 8 tab PO UD PRN; Protocol PRN Reason: Hypoglycemia Treatment Stop: 10/06/23 00:17 Glucose (Glucose 40% Gel 15 Gm Tube) 15 - 30 gm PO UD PRN; Protocol PRN Reason: Hypoglycemia Protocol Stop: 10/06/23 00:17 Guaifenesin (Guaifenesin 600 Mg Tabcr) 600 mg PO Q12 [facility] Stop: 10/16/23 16:29 Last Admin: 09/22/23 08:57 Dose: 600 mg Pantoprazole Sodium 40 mg/ (Syringe) 10 mls @ 5 mls/min IV BID [facility] Stop: 10/14/23 20:59 Last Admin: 09/22/23 08:59 Dose: 5 mls/min Insulin Aspart (Insulin Aspart Per Unit Charge) 0 units SC ACHS [facility] Stop: 10/06/23 11:29 Last Admin: 09/22/23 08:45 Dose: Not Given Isosorbide Dinitrate (Isosorbide Dinitrate 10 Mg Tab) 10 mg PO BID@0900,1800 [facility] Stop: 10/14/23 12:14 Last Admin: 09/22/23 08:57 Dose: 10 mg Lactobacillus Acidophilus (Advanced Probiotic 1250 Mg Capsule) 2 cap PO BID [facility] Stop: 10/06/23 08:59 Last Admin: 09/22/23 08:57 Dose: 2 cap Latanoprost (Latanoprost 0.005% Op Soln 2.5 Ml Btl) 1 drops OPB HS [facility] Stop: 10/06/23 20:59 Last Admin: 09/21/23 20:42 Dose: 1 drops Levalbuterol HCl (Levalbuterol 1.25 Mg/3 Ml Neb) 1.25 mg INH Q4H PRN PRN Reason: WHEEZING/SOB/COUGH Stop: 10/05/23 23:48 Loperamide HCl (Loperamide Hcl 2 Mg Cap) 2 mg PO TID PRN PRN Reason: Diarrhea Stop: 10/19/23 09:25 Last Admin: 09/19/23 20:25 Dose: 2 mg Metoprolol Succinate (Metoprolol Succ 50mg Ext Rel Tab) 50 mg PO BID17 [facility] Stop: 10/12/23 16:59 Last Admin: 09/22/23 08:57 Dose: 50 mg Miscellaneous (Carbohydrates For Hypoglycemia ) 15 - 30 gm PO UD PRN PRN Reason: Hypoglycemia Protocol Stop: 10/06/23 00:17 Montelukast Sodium (Montelukast Sodium 10 Mg Tablet) 10 mg PO QAM [facility] Stop: 10/06/23 08:59 Last Admin: 09/22/23 08:58 Dose: 10 mg Multivitamins/Minerals (Cerovite Adv Formula Tab) 1 tab PO QAM [facility] Stop: 10/06/23 08:59 Last Admin: 09/22/23 08:58 Dose: 1 tab Nitroglycerin (Nitroglycerin Sl 0.4 Mg/Tab Tab) 0.4 mg SL Q5M PRN PRN Reason: Chest Pain Stop: 10/05/23 23:48 Ondansetron HCl (Ondansetron Inj 2 Mg/Ml 2 Ml Vial) 4 mg IV Q6H PRN PRN Reason: Nausea Stop: 10/05/23 23:48 Last Admin: 09/06/23 15:18 Dose: 4 mg Oxybutynin Chloride (Oxybutynin Chloride Xl 5 Mg Tabcr) 10 mg PO [facility] Stop: 10/06/23 08:59 Last Admin: 09/13/23 08:24 Dose: 10 mg Prednisone (Prednisone 5 Mg Tab) [facility] [place] Stop: 10/13/23 10:14 Last Admin: 09/22/23 08:58 Dose: 5 mg Rosuvastatin Calcium (Rosuvastatin Calcium 20 Mg Tab) 20 mg PO [facility] Stop: 10/06/23 20:59 Last Admin: 09/11/23 21:12 Dose: 20 mg Triamcinolone Acetonide (Triamcinolone Acet 0.1% Cr 15 Gm Tube) 1 appln TOP BID PRN PRN Reason: AFFECTED AREA Stop: 10/05/23 23:48 Vitamin D (Cholecalciferol 1,000 Units 25 Mcg Tab) 2,000 units PO [facility] Stop: 10/06/23 08:59 Last Admin: 09/22/23 08:55 Dose: 2,000 units (1) Sepsis Sepsis acute organ dysfunction status: with acute organ dysfunction Sepsis type: sepsis due to unspecified organism Severe sepsis acute organ dysfunction type: encephalopathy Severe sepsis shock status: without septic shock Qualified Code(s): A41.9 - Sepsis, unspecified organism; R65.20 - Severe sepsis without septic shock; G93.41 - Metabolic encephalopathy
--- NOTE | 2023-09-22 12:36 | Discharge Summary ---
Date of Service September 22, 2023 Admission HPI Per Admitting Provider 75-year-old female with past med history significant for type 2 diabetes, CKD stage III, hyperlipidemia, chronic drug-induced interstitial lung disorders, asthma mild persistent, COPD, chronic right-sided heart failure, hypertension, history of CAD, history of CVA, mild aortic stenosis, paroxysmal atrial fibrillation, moderate protein calorie malnutrition, slow transit constipation, vitamin B-12 and thiamine deficiency, history of esophageal dysphagia, GERD, gout, osteoarthritis, primary open-angle glaucoma, polyneuropathy, rheumatoid arthritis involving multiple sites with positive rheumatoid factor, depression, history of C. difficile, history of COVID, history of fever of unknown origin, presents with fever and lethargy. states since she had a stroke and C. difficile infection she gets fever on and off and seems confused at that time but it gets resolves but this time she is having fever for last 2 days and been lethargic and was not getting better and when he checked her pulse ox heart rate was in 150s at one point of time today afternoon which prompted him to bring her to hospital. Patient is on p.o. vancomycin 125 mg every 6 hours for several months as per . States recent test of C. difficile was negative as per . As per [employer] C. Diff test was negative in July 14 2023. As per PCP notes from July 10 2023 patient continues to have fevers once a month with associated confusion and generalized weakness and persist for 7 to 10 days before resolving. And also per PCP notes when she stops vancomycin diarrhea gets worse and there is is a plan for working on prior authorization for VOWST oral capsules. Patient currently placed on BiPAP. Seems very weak. Could tell her name but in very low volume. Just answering with the nodding of the head. Patient denies headache. Denies chest pain. States has neck pain. No nausea. Denies abdominal pain. As per diarrhea is currently resolved. She ambulates without support. But since yesterday she is feeling very weak and could not ambulate. Not eating much since yesterday. She is afebrile in the ER. Tachycardic. Past medical history. As mentioned above Past surgical history. Left total knee arthroplasty. Left bone marrow biopsy. Cardiac cath. Colonoscopy. EGD. Injection of lumbosacral spine. Laparoscopic cholecystectomy. Removal of oviducts. Bilateral cataracts. Right rotator cuff repair. Right total shoulder arthroplasty. Total abdominal hysterectomy with removal of tubes. Upper endoscopy. Social history. . No smoking. Alcohol occasional. No drug use. Family history. Father had arthritis. Stroke. Mother had breast cancer. Glaucoma. Pacemaker. Stroke. Rheumatoid arthritis. Son has arthritis. Heart disorder. Paternal grandfather had heart disorder. Hypertension. Maternal grandmother had hypertension. Admission Exam Per Admitting Provider General- Lethargic Head- atraumatic Eyes- PERRL. Neck- no JVD, Lungs- clear to auscultation no wheezing or crackles. Heart- regular rhythm;tachycardia no murmur, no gallop. Abdomen- normal bowel sounds, soft, nontender, no distension. Extremities- no pretibial edema, no erythema. Neuro- Drowsy,; PERRL, no facial palsy; speaking in very low volume, Skin- warm & dry Principal Diagnosis Sepsis R lung pneumonia Acute metabolic encephalopathy Acute systolic heart failure secondary to Takotsubo cardiomyopathy NSTEMI Discharge Exam CONSTITUTIONAL: WNWD, in NAD, appears chronically ill EYES: normal conjunctivae, no scleral icterus ENT: external ear and nose normal, edentulous NECK: supple RESPIRATORY: normal respiratory effort, + mild rhonchi, no wheezing. CARDIOVASCULAR: regular rate and rhythm, S1 and 2 heard without murmurs CHEST: inspection of chest normal GASTROINTESTINAL: soft, nontender, nondistended, no guarding MUSCULOSKELETAL: Generalized weakness, head is normocephalic and atraumatic SKIN: warm and dry NEURO/PSYCH: awake, alert, oriented, cooperative, answers simple questions appropriately. speech fluent, moves extremities Discharge Data Allergies Allergy/AdvReac Type Severity Reaction Status Date / Time Influenza Virus Vaccines Allergy Severe FLOWN TO Verified 09/05/23 20:43 [facility]. ciprofloxacin Allergy Intermediate RASH/BLEEDI Verified 09/05/23 20:43 NG methotrexate Allergy Intermediate RASH/PNEUMO Verified 09/05/23 20:43 NITIS Penicillins Allergy Intermediate hives Verified 09/05/23 20:43 ranitidine Allergy Intermediate rash Verified 09/05/23 20:43 Consultations 09/05/23 20:16 ED Decision to Admit Stat 09/06/23 08:00 Consult Cardiology Routine 09/08/23 14:59 Consult Nephrology Routine 09/11/23 09:26 Consult Infectious Diseases Routine 09/12/23 05:51 Consult Gastroenterology Routine 09/15/23 10:16 Consult Gastroenterology Routine Ordered Studies 09/06/23 01:39 CT Abd and Pelvis [CT abd pelvis wo con] Urgent FINDINGS: No acute or focal abnormalities are noted of the unenhanced liver, spleen or pancreas. The gallbladder has been removed. There is no hydronephrosis or perinephric fluid. No evidence of bowel obstruction. No abnormal fluid or regional inflammatory reaction. IMPRESSION: No acute findings. CT chest diagnostic wo con Urgent FINDINGS: Lungs: Mild infiltrates in the right upper lobe and right lower lobe. Atelectasis in the left lower lobe. No mass. Pleural space: Small bilateral pleural effusions. No pneumothorax. Heart: Unremarkable. No cardiomegaly. No significant pericardial effusion. Extensive coronary arterial calcifications. Bones/joints: Unremarkable. No acute fracture. No dislocation. Soft tissues: Unremarkable. Vasculature: Unremarkable. No thoracic aortic aneurysm. Lymph nodes: Unremarkable. No enlarged lymph nodes. IMPRESSION: Mild infiltrates in the right lung. Small bilateral pleural effusions. CT head/brain wo con Urgent FINDINGS: No acute intracranial hemorrhage. No midline shift or mass effect. The territorial childs-white matter differentiation is maintained throughout. Age-related cerebral volume loss. Periventricular and subcortical white matter hypoattenuation, consistent with chronic microangiopathy. The visualized orbits appear grossly unremarkable. The calvarium is intact. The visualized paranasal sinuses and mastoid air cells are grossly clear. IMPRESSION: No acute intracranial hemorrhage, midline shift, or mass effect. 09/08/23 00:00 MR brain wo con Routine FINDINGS: Brain: Unremarkable. No mass. No hemorrhage. No acute infarct. Ventricles: Unremarkable. No ventriculomegaly. Bones/joints: Unremarkable. No acute fracture. Sinuses: Unremarkable as visualized. No acute sinusitis. Mastoid air cells: Unremarkable as visualized. No mastoid effusion. Orbits: Unremarkable as visualized. IMPRESSION: 1. 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 Mild blooming artifact within the brain parenchyma suggesting hemosiderin deposition. No large intracranial hemorrhage identified on this exam. 09/11/23 10:54 US liver Urgent IMPRESSION: 1. The hepatic parenchyma is heterogeneous and mildly echogenic. There is an ill-defined 4.9 cm mass noted within the right hepatic lobe likely correlating with the 2 cm lesion described on the 08/13/2022 study. Findings could be further evaluated with tissue sampling. 2. Cholecystectomy. ACT 112: 09/14/23 18:54 CT abd pelvis IV con only Urgent FINDINGS: Lung bases: See below. Pleural space: Small bilateral pleural effusions with subjacent airspace consolidations, correlate for aspiration pneumonia. ABDOMEN: Liver: Indeterminate low-attenuation lesion in the RIGHT hepatic lobe that measures approximately 5.4 x 5.6 cm. This is new when compared to March 31, 2022. If this is a new finding, recommend hepatic MRI. Gallbladder and bile ducts: Unremarkable. No calcified stones. No ductal dilation. Pancreas: Unremarkable. No mass. No ductal dilation. Spleen: Unremarkable. No splenomegaly. Adrenals: Unremarkable. No mass. Kidneys and ureters: Renal cysts. No hydronephrosis. Stomach and bowel: Diverticulosis, without acute diverticulitis. No small bowel obstruction. No free intraperitoneal air. PELVIS: Appendix: No findings to suggest acute appendicitis. Bladder: Decompression and bladder contains a Colon catheter. Reproductive: Unremarkable as visualized. ABDOMEN and PELVIS: Intraperitoneal space: Unremarkable. No free air. No significant fluid collection. Bones/joints: Degenerative changes of the spine. No acute fracture. No dislocation. Soft tissues: Unremarkable. Vasculature: Atherosclerotic changes of the aorta. No abdominal aortic aneurysm. Lymph nodes: Unremarkable. No enlarged lymph nodes. IMPRESSION: 1. No hydronephrosis. 2. Small bilateral pleural effusions with subjacent airspace consolidations, correlate for aspiration pneumonia. 3. Indeterminate low-attenuation lesion in the RIGHT hepatic lobe that measures approximately 5.4 x 5.6 cm. New when compared to March 31, 2022. If this is a new finding, recommend hepatic MRI. 4. Diverticulosis, without acute diverticulitis. No small bowel obstruction. No free intraperitoneal air. Hospital Course (1) Sepsis: 75-year-old female with type 2 diabetes, CKD stage III, hyperlipidemia, chronic drug-induced interstitial lung disorders, asthma mild persistent, COPD, chronic right-sided heart failure, hypertension, history of CAD, history of CVA, mild aortic stenosis, paroxysmal atrial fibrillation, moderate protein calorie malnutrition, slow transit constipation, vitamin B-12 and thiamine deficiency, history of esophageal dysphagia, GERD, gout, osteoarthritis, primary open-angle glaucoma, polyneuropathy, rheumatoid arthritis involving multiple sites with positive rheumatoid factor, depression, history of C. difficile, history of COVID, history of fever of unknown origin admitted with fever and lethargy. Sepsis, POA-resolved R lung pneumonia-treated Acute metabolic encephalopathy-resolved Metabolic encephalopathy likely due to sepsis-resolved Neurology consult- -MRI brain without contrast: per neurology no acute concerns -EEG suggestive of encephalopathy Patient presented with fever and lethargy for 2 days. Patient reported sore throat and hoarse voice CT chest- infiltrate on right lung field; small bilateral pleural effusion CT abdomen and pelvisno acute finding CT headno acute finding Urine cultureno growth Blood culturenegative She received 2 days of cefepime and vancomycin followed by 5 days of ertapenem for a full antibiotic course and to treat pneumonia. She is oxygenating well on room air. Repeat chest imaging in 4 weeks time. She has been resuscitated from a sepsis standpoint and this is resolved. She remains afebrile Acute systolic heart failure 2/2 Takotsubo cardiomyopathy NSTEMI History of CAD Paroxysmal atrial fibrillation EKG on admission with atrial fibrillation with diffuse ST depression. High sensitive troponin elevated to 1190; downtrended Echocardiogram 09/06 showed EF of 20 to 25%; large wall motion abnormality with severe hypokinesis to dyskinesis of mid and apical left ventricular myocardial wall. Repeat echo 09/10 showed improved EF of 35-40% Was on IV heparin. Continue GDMT per cardiology Continue on Plavix and statin.--plavix on hold / hematochezia - resumed 09/18/23 Continue metoprolol succinate 50 mg twice per day. Added isosorbide dinitrate 10 mg twice daily. Renal function limits use of LILI/Entresto. Takotsubo has resolved - discussed w/ cardiology. Amlodipine 2.5 mg daily may be restarted if BP elevated. Hematochezia-(new 09/14) Abdominal pain Started 09/14 with dark red stool. Heparin was already stopped and plavix held Iron supplement held. Pain across abdomen is resolved now. Given elevated LFTs which may have been related to shock liver, it is possible she may have an ischemic colitis from recent sepsis that is improving repeat CT a/p with IV contrast unremarkable for new findings. At this point, H/H is stable and her vitals are stable which is reassuring. Per GI, clinical picture is not consistent with colitis and bleeding has resolved. Cont holding off on blood thinners for 72 hours and trend H/H. If bleeding returns, consider endoscopic evaluation at that time. Cont IV PPI -> switch to PO No bleeding thus far since plavix resumed (resumed on 09/18). Hgb stable Elevated liver enzymes Liver Mass Liver enzyme levels increased over hospitalization time poss 2/2 sepsis vs medication side effect. US liver ordered -concerning for increasing liver mass when compared to lesion noted on imaging from Jul 2022, radiology recommending tissue sampling CT abd/pelvis from 09/06 with no noted mass, consider confirming read with radiologist reading that CT GI consult placed- appreciate further recs -recommending outpt IR biopsy on discharge LFTs trending down , Can continue to watch. Consider liver serology with CMV, EB V and acute hepatitis panel. Held home statin with liver enzyme elevation, can resume on DC Possible DKA, resolved Hgb A1c 6.3% Sugars in 300s and had anion gap on admission Initially placed on insulin drip. Not on any medications at home. reports that her blood glucose has been around 110s to 120s most of the time but recently elevated to 200s Continue on subcu insulin. Pharmacy glycemic consult ANDRESSA on CKD stage III, likely prerenal due to sepsis vs cardiorenal Hyponatremia likely due to ANDRESSA Presented with creatinine 1.7 Creatinine elevated to 2, improving slowly with gentle hydration Improved to 1, which is pt's baseline. Continue to encourage p.o. intake. This is likely related to ATN from sepsis. Nephrology was consulted - NEPHRO D/C RECOMMENDATIONS -hospital d/c appt w/ Dr. Gonzalez in [facility] 2-4 wks after d/c w/ BMP, urine and sodium osmolality, ACR, rd urine sodium, UACM to be done about 3 days before appt; labs to be ordered by nephro nurse -also check bmp at PCP hospital d/c visit Hyponatremia: resolved; attributed to HF. Sodium remains normal today. Patient is not drinking much. recommend continue to monitor daily bmp while in house. not currently on diuretics and this is OK History of asthma History of COPD History of drug-induced interstitial lung disorders Chronic, stable. Continue supportive care as needed. Continue home inhalers History of CVA chronic, stable. Uncertain if any residual deficits. On statin and Plavix.plavix resumed now History of C. difficile C diff gene negative at this time (repeated stool study on 09/17/23) Previously on po vancomycin by ID Continued home p.o. vancomycin initially previous hospitalist Contacted ID to ensure ok to dc vanco given pt's history -per ID ok to dc po Vanc -pt has loose stools, no blood in the stool currently, stool study repeated and negat. for c. diff gene History of esophageal dysphagia Speech consulted; restarting pured diet. hypertension chronic, stable. Cont current therapy. rheumatoid arthritis chronic, stable. Cont holding plaquenil. She was initially started on stress dose hydrocortisone, but is clinically improved so this was stopped. Side effects outweigh the benefits at this point. She was restarted on her chronic prednisone. Discuss resuming plaquenil w/ pcp and/ or [facility] History of vitamin B1 and B12 deficiency Continue supplementation depression chronic, stable. Continue duloxetine DVT prophylaxis: SCDs, chemoprophylaxis contraindicated with possibility of bleeding. Diet: DMII, pureed, nutrition consult placed. DNR/DNI (2) Acute heart failure with reduced ejection fraction and diastolic dysfunction: (3) ANDRESSA (acute kidney injury): (4) Atrial fibrillation with rapid ventricular response: (5) Takotsubo cardiomyopathy: (6) Heart disease: (7) HTN (hypertension): (8) NSTEMI (non-ST elevated myocardial infarction): (9) DM type 2 (diabetes mellitus, type 2): (10) Rheumatoid arthritis: Total Time Total Time Spent Total Time Spent (In Minutes): 60 Discharge Plan Discharge Items Patient Disposition: Transfer Nursing Home Fac Reason For Visit: FEVERS, LETHARGY, SEPSIS Discharge Diagnosis: Sepsis R lung pneumonia Acute metabolic encephalopathy Acute systolic heart failure secondary to Takotsubo cardiomyopathy NSTEMI Activity: Per Instructions section Non-emergency contact: Primary Care Provider and Trailer Chief Call non-emergency contact if: you have any medication questions and your symptoms worsen Follow-up/Referrals: Leni Moyer DO [Primary Care Provider] - Diet: Carb Consistent or DM2 and Heart Healthy Diet Texture: Pureed (blended smooth) Addtl Attending Provider Instructions: Follow up with primary care physician within 1 week. You will also need to follow up with nephrology and have blood work done to check on your kidney function and electrolytes. Your metoprolol was increased to 50 mg twice a day, and isosorbide dinitrate was also added by your leasing machine tender. If your blood pressure stays elevated, amlodipine should be resumed as well. Recommend to take guaifenesin for the next several days. Use spirometer and flutter valve. Take pantoprazole unless further instructed by primary care doctor or tipple worker. It is also recommended that you have a liver mass biopsy done once you recover. Pending Studies at Discharge: No Stand-Alone Forms: My [facility] Skilled Items Patient informed of condition?: Yes DNR: Yes Discharge Level of Care: Skilled Communicable Disease: No Discharge Prognosis: Stable Lines: None Urinary Catheter: No Medications and DC Order Prescriptions: New metoprolol succinate 50 mg Tablet Extended Release 24 Hr 50 mg PO [id number] Qty: 60 0RF isosorbide dinitrate 10 mg Tablet 10 mg PO BID Qty: 60 0RF pantoprazole 40 mg Tablet,Delayed Release (Dr/Ec) 40 mg PO BID Qty: 60 0RF guaifenesin [Mucinex] 600 mg Tablet Extended Release 12hr 600 mg PO Q12 Qty: 10 0RF Continued latanoprost 0.005 % drops 1 drp OPB HS cyanocobalamin (vitamin B-12) [Vitamin B-12] 1,000 mcg Tablet 2,000 mcg PO 3XWK Rx Instructions: mon, wed, fri albuterol sulfate [ProAir HFA] 90 mcg/actuation Hfa Aerosol Inhaler 2 puff INHALATION Q4 PRN (Reason: Shortness Of Breath) Ocuvite with Lutein 1,000 unit-200 mg-60 unit-2 mg Tablet 1 tab PO QAM prednisone 5 mg tablet 5 mg PO QAM folic acid 1 mg tablet 1 mg PO QAM duloxetine 30 mg capsule,delayed release(DR/EC) 60 mg PO QAM Centrum Silver Women 8 mg iron-400 mcg-300 mcg Tablet 1 tab PO QAM montelukast 10 mg Tablet 10 mg PO QAM thiamine HCl (vitamin B1) 100 mg tablet 50 mg PO DAILY acetaminophen 325 mg Tablet 325 mg PO DIRECTED PRN (Reason: Pain) fluticasone furoate-vilanterol [Breo Ellipta] 200-25 mcg/dose blister with device 1 inh INHALATION DAILY clopidogrel 75 mg Tablet 75 mg PO QAM Qty: 30 0RF albuterol sulfate 2.5 mg /3 mL (0.083 %) Solution For Nebulization 2.5 mg INHALATION DIRECTED PRN (Reason: Shortness Of Breath Or Wheezing) triamcinolone acetonide 0.1 % Cream 1 applic TOPICAL BID PRN (Reason: AFFECTED AREA) menthol-zinc oxide [Calmoseptine] 0.44-20.6 % Ointment 1 applic TOPICAL BID PRN (Reason: AFFECTED AREA) [employer] 5 billion cell Powder In Packet 5 cell PO BID ferrous sulfate 325 mg (65 mg iron) Tablet 325 mg PO QAM cholecalciferol (vitamin D3) [Vitamin D3] 50 mcg (2,000 unit) Capsule 50 mcg PO QAM pantoprazole [Protonix] 40 mg Tablet,Delayed Release (Dr/Ec) 40 mg PO QAM Rx Instructions: PER [facility] [place]--ORDERED 06/15/23 FOR 90 DAYS, "DISCONTINUED ON HOSP D/C INSTRUCTIONS"??? solifenacin [Vesicare] 10 mg tablet 10 mg PO QAM rosuvastatin 10 mg tablet 20 mg PO HS levalbuterol HCl [Xopenex] 1.25 mg/3 mL Solution For Nebulization 1.25 mg INHALATION Q4H PRN (Reason: WHEEZING/SOB/COUGH) Held hydroxychloroquine 200 mg Tablet 200 mg PO HS 30 Days Qty: 30 2RF Hold Instructions: Resume on 09/29/23. discuss w/ pcp or [facility] if/ when to resume Discontinued vancomycin 125 mg capsule 125 mg PO Q6H metoprolol succinate 25 mg tablet extended release 24 hr 25 mg PO DAILY amlodipine 5 mg tablet 5 mg PO QAM Discharge Orders: Discharge Order (Routine); Ordered 09/22/23 Ordered By: Francisco J Bowser/Other Patient Handouts: Managing Type 2 Diabetes Admission Data Admit Date/Time: 09/05/23 22:23 Attending Provider: Francisco J Phillip Admit Provider: James Gutierrez Primary Care Provider: Leni Moyer Other Providers: James Gutierrez; César Meza; Liam Whiteside; Gasper Swanson; Skip Givens I.; Dank Tang II; Ami Marrero; Kenneth Daniel; Dean Hidalgo; Kristin Draper; Hayley Hamlin; Eric Lima; Jennifer Viveros; Belkis Seymour
[2023-09-22] MEDS ORDERED: PANTOprazole 40 MG TAB PO SCH (21:00)
== END 2023-09-22 15:15 | DRG 871 ==
LOC: ED 18:31 → SUATTDRO 22:23 → 4W 22:23

== ENCOUNTER 2023-09-29 15:14 | Inpatient (IN) ==
--- NOTE | 2023-09-29 16:14 | Emergency Department Note ---
History of Present Illness General Chief complaint: Illness Stated complaint: Abnormal Labs Time Seen by Provider: 09/29/23 15:51 History of Present Illness 78 yo female presents from [facility] reportedly had labs today that showed that she had a low white blood cell count. There was a concern for sepsis. Patient has no current complaints such as chest pain shortness of breath abdominal pain nausea vomiting diarrhea or fever. Patient recently was treated for C. difficile and that was reportedly eradicated last year. Patient currently has no complaints. Home Medications Medication Instructions Recorded Confirmed Type folic acid 1 mg tablet 1 mg PO QAM 07/20/18 09/29/23 History prednisone 5 mg tablet 5 mg PO QAM 07/20/18 09/29/23 History albuterol sulfate 90 mcg/actuation 2 puff inhalation Q4 PRN Shortness 03/07/19 09/29/23 History aerosol inhaler (ProAir HFA) Of Breath cyanocobalamin (vitamin B-12) 2,000 mcg PO 3XWK 03/07/19 09/29/23 History 1,000 mcg tablet (Vitamin B-12) vit A 300 mcg-C 200 mg-E 27 1 tab PO QAM 03/07/19 09/29/23 History mg-lutein 2 mg and minerals tablet (Ocuvite with Lutein) [id number]-cear 8 mg-folic 400 1 tab PO QAM 11/12/19 09/29/23 History mcg-K 50 mcg-lutein 300 mcg tablet (Centrum Silver Women) montelukast 10 mg tablet 10 mg PO QAM 11/15/20 09/29/23 History latanoprost 0.005 % eye drops 1 drp OPB HS 01/03/21 09/29/23 History solifenacin 10 mg tablet (Vesicare) 10 mg PO QAM 08/22/21 09/29/23 History acetaminophen 325 mg tablet 650 mg PO Q4 PRN Fever Or Pain 03/21/22 09/29/23 History fluticasone furoate 200 1 inh inhalation DAILY 03/21/22 09/29/23 History mcg-vilanterol 25 mcg/dose inhalation powder (Breo Ellipta) thiamine HCl (vitamin B1) 100 mg 50 mg PO QAM 03/21/22 09/29/23 History tablet clopidogrel 75 mg tablet 75 mg PO QAM #30 tabs 04/01/22 09/29/23 Rx Lactobacillus rhamnosus GG 5 5 cell PO BID 08/06/22 09/29/23 History billion cell oral powder packet ([employer]ath[employer] Probiotics) albuterol sulfate 2.5 mg/3 mL 2.5 mg inhalation QID PRN 08/06/22 09/29/23 History (0.083 %) solution for nebulization Shortness Of Breath Or Wheezing cholecalciferol (vitamin D3) 50 50 mcg PO QAM 08/06/22 09/29/23 History mcg (2,000 unit) capsule (Vitamin D3) guaifenesin 600 mg tablet, 600 mg PO Q12 #10 tabs 09/22/23 09/29/23 Rx extended release 12 hr (Mucinex) isosorbide dinitrate 10 mg tablet 10 mg PO BID #60 tabs 09/22/23 09/29/23 Rx duloxetine 60 mg capsule,delayed 60 mg PO QAM 09/29/23 09/29/23 History release hydroxychloroquine 200 mg tablet 200 mg PO .ON HOLD 09/29/23 09/29/23 History metoprolol succinate 50 mg 50 mg PO AMHS 09/29/23 09/29/23 History tablet,extended release 24 hr miconazole nitrate 2 % topical 1 applic topical BID 09/29/23 09/29/23 History powder (Remedy Antifungal) pantoprazole 40 mg tablet,delayed 40 mg PO AMHS 09/29/23 09/29/23 History release rosuvastatin 20 mg tablet 20 mg PO HS 09/29/23 09/29/23 History silver sulfadiazine 1 % topical 1 applic topical [id number] 09/29/23 09/29/23 History cream (Silvadene) Allergies Allergy/AdvReac Type Severity Reaction Status Date / Time Influenza Virus Vaccines Allergy Severe FLOWN TO Verified 09/05/23 20:43 [facility]. ciprofloxacin Allergy Intermediate RASH/BLEEDI Verified 09/05/23 20:43 NG methotrexate Allergy Intermediate RASH/PNEUMO Verified 09/05/23 20:43 [facility] Penicillins Allergy Intermediate hives Verified 09/05/23 20:43 ranitidine Allergy Intermediate rash Verified 09/05/23 20:43 Past Med/Surg History Medical History Wrist fracture, left History of stroke Thrush, oral Hyponatremia Nontraumatic rectus hematoma NSTEMI (non-ST elevated myocardial infarction) UTI (urinary tract infection) Immunosuppressed status DVT prophylaxis CKD (chronic kidney disease), stage III Acute hyponatremia Abnormal ECG Elevated troponin Syncope NSTEMI (non-ST elevated myocardial infarction) Visual hallucinations Hyponatremia RSV infection Recurrent Clostridium difficile diarrhea Chronic steroid use prednisone daily Gout H/O interstitial lung disease "drug induced- methotrexate " Osteoarthritis Glaucoma Peripheral neuropathy Dyslipidemia Rheumatoid arthritis "on chronic steroids" COPD (chronic obstructive pulmonary disease) inhalers prn Depression CKD (chronic kidney disease), stage III Gastroparesis DM type 2 (diabetes mellitus, type 2) GERD (gastroesophageal reflux disease) Migraines DJD of right shoulder NSTEMI (non-ST elevated myocardial infarction) (08/06/13) Asthma inhalers prn HTN (hypertension) Heart disease Surgical History History of tooth extraction all top teeth History of esophagogastroduodenoscopy (EGD) H/O cardiac catheterization "cath 07/2013- single vessel CAD involving apical segment LAD, medical management indicated" S/P total knee arthroplasty "left knee" History of hysterectomy H/O colonoscopy S/P rotator cuff repair "right shoulder" S/P removal of ovarian cyst Family History Father Family history of diabetes mellitus Mother Heart disease Hypertension Other No family history of adverse response to anesthesia Social History Smoking Status: Never smoker Second Hand Exposure: No; Do You Dip or Chew Tobacco: No; Hx Alcohol Use: No Hx Substance Use: No Preferred Language: [place] Citizen Communication Ability: Effective Early Years Teacher Required: No Beliefs That Will Affect Care: None marital status: Current Living Situation: Spouse current occupational status: retired current occupation: Former [employer] Feels Safe at Home: Yes Assistive Devices: Bedside Commode, Scooter/Electric Scooter, Walker and Wheelchair Review of Systems A total of 10 systems reviewed and were otherwise negative Constitutional: no fever and no body aches Respiratory: no cough Cardiovascular: no chest pain Physical Exam Vital Signs Vital Signs - 24 hr 09/29/23 15:30 09/29/23 15:30 09/29/23 15:43 Temperature 37.4 C Temperature Source Oral Pulse Rate 75 73 Pulse Rate from SpO2 Sensor Respiratory Rate 18 Blood Pressure 119/62 Blood Pressure Mean 81 Pulse Oximetry 96 Oxygen Delivery Method Room Air Room Air Sepsis New/Unexplained Change in Mental Status No Sepsis Action Taken by Nursing No Action Required 09/29/23 15:50 09/29/23 16:00 09/29/23 16:01 Temperature Temperature Source Pulse Rate 79 Pulse Rate from SpO2 Sensor 77 Respiratory Rate 26 H Blood Pressure 126/53 L Blood Pressure Mean 100 Pulse Oximetry 97 Oxygen Delivery Method Room Air Sepsis New/Unexplained Change in Mental Status Sepsis Action Taken by Nursing 09/29/23 16:01 09/29/23 16:30 09/29/23 16:30 Temperature Temperature Source Pulse Rate 72 78 Pulse Rate from SpO2 Sensor 77 79 Respiratory Rate 27 H 21 Blood Pressure 126/73 Blood Pressure Mean 99 Pulse Oximetry 98 97 Oxygen Delivery Method Room Air Room Air Sepsis New/Unexplained Change in Mental Status Sepsis Action Taken by Nursing 09/29/23 17:00 09/29/23 17:00 09/29/23 17:30 Temperature Temperature Source Pulse Rate 86 70 Pulse Rate from SpO2 Sensor 84 72 Respiratory Rate 22 20 Blood Pressure 142/71 H Blood Pressure Mean 108 Pulse Oximetry 96 96 Oxygen Delivery Method Room Air Sepsis New/Unexplained Change in Mental Status Sepsis Action Taken by Nursing 09/29/23 17:30 09/29/23 18:00 09/29/23 18:00 Temperature Temperature Source Pulse Rate 76 Pulse Rate from SpO2 Sensor 88 Respiratory Rate 21 Blood Pressure 139/64 151/68 H Blood Pressure Mean 93 112 Pulse Oximetry 96 Oxygen Delivery Method Room Air Sepsis New/Unexplained Change in Mental Status Sepsis Action Taken by Nursing 09/29/23 18:09 Temperature 37.0 C Temperature Source Oral Pulse Rate Pulse Rate from SpO2 Sensor Respiratory Rate Blood Pressure Blood Pressure Mean Pulse Oximetry Oxygen Delivery Method Sepsis New/Unexplained Change in Mental Status Sepsis Action Taken by Nursing GENERAL: Patient is awake alert in no acute distress patient is resting comfortably and showing no signs of anxiety EYES: The conjunctivae are clear. The pupils are round and reactive. EARS, NOSE, MOUTH AND THROAT: The nose is without any evidence of any deformity. Mucous membranes are moist. Tongue is midline. NECK: The neck is nontender and supple. RESPIRATORY: Normal respiratory effort is noted there is no evidence of wheezing rhonchi or rales CARDIOVASCULAR: Regular rate and rhythm noted there no murmurs rubs or gallops normal S1 normal S2. GASTROINTESTINAL: The abdomen is soft. Abdomen is nontender. PELVIS: The Pelvis is stable. No tenderness to palpation is noted. BACK: No midline tenderness or or step-off noted range of motion in flexion extension as well as rotation no signs of muscle spasm noted MUSCULOSKELETAL/EXTREMITIES: There is no evidence of gross deformity full range of motion is noted in the hips and shoulders. SKIN: There is no obvious evidence of any rash. There are no petechiae, pallor or cyanosis noted. NEUROLOGIC: Patient is awake alert and oriented x3 strength is symmetric Course Reevaluation(s) Reevaluation #1: Patient was started on IV fluids, the patient was started on 2 g of IV cefepime after consultation with the pharmacist. Patient remained hemodynamically stable throughout emergency department evaluation Time: 18:26 Consultations Consultation #1: [facility], pancytopenia and sepsis Time: 18:26 Administered Medications Sodium Chloride (Nss) 1,000 mls @ 999 mls/hr IV .Q1H1M ONE Stop: 09/29/23 19:04 Last Admin: 09/29/23 18:12 Dose: 999 mls/hr Documented By: ANAMIKA Discontinued Medications Cefepime HCl (Maxipime) 2,000 mg in 20 mls @ 5 mls/min IV NOW STA; Protocol Stop: 09/29/23 17:36 Last Admin: 09/29/23 18:11 Dose: 5 mls/min Documented By: ANAMIKA Medical Decision Making Medical Records Attestation: I reviewed the patient's medical records. Home Medications Current Medication List: was personally reviewed by me Laboratory Data Attestation: I reviewed the patient's lab results. Labs interpreted by me, patient is pancytopenic, patient is hyponatremic patient has a slightly elevated blood sugar 09/29/23 16:45 09/29/23 16:45 Lab Results 09/29/23 09/29/23 09/29/23 Range/Units 16:45 16:55 18:05 WBC 1.07 L (4.8-10.8) K/ul RBC 2.77 L (4.20-5.40) M/uL Hgb 7.7 L (12.0-16.0) g/dl Hct 23.0 L (37.0-47.0) % MCV 83.0 (80.0-100.0) fL MCH 27.8 (25.0-34.0) pg MCHC 33.5 (32.0-36.0) g/dL RDW Std Deviation 52.0 H (36.4-46.3) fL RDW Coeff of Xochitl 17.0 H (11.5-14.5) % Plt Count 118 L (130-400) K/uL MPV 8.6 L (9.4-12.4) fL Immature Gran % (Auto) 1.9 % Neut % (Auto) 16.8 % Lymph % (Auto) 53.3 % [place] % (Auto) 28.0 % Eos % (Auto) 0.0 % Baso % (Auto) 0.0 % Neut # (Auto) 0.18 L* (1.40-6.50) K/uL Lymph # (Auto) 0.57 L (1.20-3.40) K/uL [place] # (Auto) 0.30 (0.11-0.59) K/uL Eos # (Auto) 0.00 (0.00-0.50) K/uL Baso # (Auto) 0.00 (0.00-0.20) K/uL Immature Gran # (Auto) 0.02 (0.01-0.20) K/uL RBC Morphology Unremarkable PT 11.4 (9.0-12.0) Seconds INR 1.0 (0.9-1.1) APTT 28 (21-31) Seconds PTT Ratio 1.0 Sodium 129 L (136-145) mmol/L Potassium 3.7 (3.5-5.1) mmol/L Chloride 98 (98-107) mmol/L Carbon Dioxide 24 (21-32) mmol/L Anion Gap 7 (3-11) BUN 23 (6-23) mg/dl Creatinine 1.06 (0.6-1.2) mg/dl Est Cr Clr Drug Dosing Not Reportable Est GFR ( Amer) 59.1 ml/min Est GFR (Non-Af Amer) 51.0 ml/min BUN/Creatinine Ratio 21.7 H (10-20) Glucose 213 H (70-99(Fasting)) mg/dl Lactate 1.2 (0.4-2.0) mmol/L Calcium 7.8 L (8.6-10.3) mg/dl Magnesium 1.6 L (1.7-2.4) mg/dl Total Bilirubin 0.6 (0.2-1.0) mg/dl Direct Bilirubin 0.2 (0-0.2) mg/dl AST 39 (13-39) U/L ALT 36 (7-52) U/L Alkaline Phosphatase 119 H (34-104) U/L Troponin I High Sens 25.3 H (0-14) pg/ml Total Protein 5.5 L (6.0-8.3) gm/dl Albumin 2.8 L (3.4-5.0) gm/dl Procalcitonin 2.31 H (0-0.5) ng/ml Urine Color Yellow Urine Appearance Clear (Clear) Urine pH 5.5 (4.5-7.5) Ur Specific [place] 1.013 (1.000-1.030) Urine Protein 1+ H (Negative) Urine Glucose (UA) Negative (Negative) Urine Ketones Negative (Negative) Urine Blood Negative (Negative) Urine Nitrite Positive A (Negative) Urine Bilirubin Negative (Negative) Urine Urobilinogen Negative (Negative) Ur Leukocyte Esterase Negative (Negative) Urine WBC (Auto) 1-5 (0-5) /hpf Urine RBC (Auto) 0-4 (0-4) /hpf U Hyaline Cast (Auto) 1-5 (0-5) /lpf U Epithel Cells (Auto) 5-10 H (0-5) /lpf Urine Bacteria (Auto) 3+ H (Negative) SARS-CoV-2 (PCR) NEGATIVE (Negative) Influenza Type A (PCR) Negative (Neg) Influenza Type B (PCR) Negative (Neg) RSV (RT-PCR) Negative (Neg) Imaging Data Attestation: I personally reviewed and interpreted this imaging study as follows: My Impression: Chest x-ray interpreted by me negative for infiltrate Radiologist's Impression: Chest X-Ray 09/29/23 15:51 XR chest 1V portable HISTORY: Sepsis COMPARISON: Chest 09/08/2023. FINDINGS: There are low lung volumes. No pneumothorax. No pleural effusions. No new focal lung consolidations to suggest a pneumonia. No evidence for pulmonary edema. The cardiac silhouette remains mildly enlarged. Slightly rotated study. Right shoulder prosthesis. Prior cholecystectomy. No acute fractures. IMPRESSION: Mild cardiomegaly. Otherwise, no acute process within the chest. ACT 112: Negative or not required by law. Electronically signed by: Peter Olivarez M.D. 09/29/2023 4:34 PM ECG Data Attestation: I personally reviewed and interpreted this ECG as follows: Additional Comments: EKG interpreted by me atrial fibrillation, occasional PVC, poor baseline, right bundle branch block, nonspecific T wave abnormality, normal axis, rate of 74 Telemetry was ordered by me and interpreted as atrial fibrillation rate of 74 MDM Narrative Medical decision making differential diagnosis includes sepsis, dehydration, electrolyte abnormality, urinary tract infection, COVID Plan is to check sepsis labs I did review the discharge note of 09/22/2023 from [facility] in which the patient had sepsis C. difficile ANDRESSA and other complications prior to discharge The patient was empirically started on IV cefepime in the emergency department Patient has neutropenia, pancytopenia, patient was started on IV cefepime for potential sepsis of unknown etiology, patient has an elevated procalcitonin, patient did receive IV fluids, patient is hemodynamically stable and not hypotensive in the emergency department. The case was discussed with the [facility] hospitalist for admission Impression & Plan Pancytopenia, Sepsis Discharge Plan Visit Data Chief Complaint: Illness Stated Complaint: Abnormal Labs ED Provider: Damien Piña Discharge Problem: Pancytopenia, Sepsis Patient Disposition: Admitted As Inpatient Forms Stand Alone Forms: My [facility] Prescriptions Prescriptions: No Action latanoprost 0.005 % drops 1 drp OPB HS cyanocobalamin (vitamin B-12) [Vitamin B-12] 1,000 mcg Tablet 2,000 mcg PO 3XWK Rx Instructions: mon, wed, fri albuterol sulfate [ProAir HFA] 90 mcg/actuation Hfa Aerosol Inhaler 2 puff INHALATION Q4 PRN (Reason: Shortness Of Breath) Ocuvite with Lutein 1,000 unit-200 mg-60 unit-2 mg Tablet 1 tab PO QAM prednisone 5 mg tablet 5 mg PO QAM folic acid 1 mg tablet 1 mg PO QAM Centrum Silver Women 8 mg iron-400 mcg-300 mcg Tablet 1 tab PO QAM montelukast 10 mg Tablet 10 mg PO QAM thiamine HCl (vitamin B1) 100 mg tablet 50 mg PO QAM acetaminophen 325 mg Tablet 650 mg PO Q4 MDD 3g PRN (Reason: Fever Or Pain) fluticasone furoate-vilanterol [Breo Ellipta] 200-25 mcg/dose blister with device 1 inh INHALATION DAILY clopidogrel 75 mg Tablet 75 mg PO QAM Qty: 30 0RF albuterol sulfate 2.5 mg /3 mL (0.083 %) Solution For Nebulization 2.5 mg INHALATION QID PRN (Reason: Shortness Of Breath Or Wheezing) [employer] Probiotics 5 billion cell Powder In Packet 5 cell PO BID cholecalciferol (vitamin D3) [Vitamin D3] 50 mcg (2,000 unit) Capsule 50 mcg PO QAM solifenacin [Vesicare] 10 mg tablet 10 mg PO QAM isosorbide dinitrate 10 mg Tablet 10 mg PO BID Qty: 60 0RF guaifenesin [Mucinex] 600 mg Tablet Extended Release 12hr 600 mg PO Q12 Qty: 10 0RF duloxetine 60 mg Capsule,Delayed Release(Dr/Ec) 60 mg PO QAM hydroxychloroquine 200 mg tablet 200 mg PO .ON HOLD Rx Instructions: when resumed ordered 200mg Q HS metoprolol succinate 50 mg tablet extended release 24 hr 50 mg PO AMHS pantoprazole 40 mg tablet,delayed release (DR/EC) 40 mg PO AMHS rosuvastatin 20 mg tablet 20 mg PO HS miconazole nitrate [Remedy Antifungal] 2 % Powder 1 applic TOPICAL BID Rx Instructions: apply to under breasts and abdominal folds silver sulfadiazine [Silvadene] 1 % Cream 1 applic TOPICAL [id number] Rx Instructions: cleanse sacral wound wit NSS or wound final cleaner,pat dry,apply silvadene to wound and cover with silicone bordered dressing...change as needed for soilage Referrals Referrals: Leni Moyer DO [Primary Care Provider] -
--- NOTE | 2023-09-29 16:35 | XRay Report ---
XR chest 1V portable HISTORY: Sepsis COMPARISON: Chest 09/08/2023. FINDINGS: There are low lung volumes. No pneumothorax. No pleural effusions. No new focal lung consol idations to suggest a pneumonia. No evidence for pulmonary edema. The cardiac silhouette remains mild ly enlarged. Slightly rotated study. Right shoulder prosthesis. Prior cholecystectomy. No acute fract ures. IMPRESSION: Mild cardiomegaly. Otherwise, no acute process within the chest. ACT 112: Negative or not required by law. Electronically signed by: Peter Olivarez M.D. 09/29/2023 4:34 PM
[2023-09-29 17:26] LABS: Hemoglobin 7.7 g/dl (12.0-16.0); Mean Corpuscular Hemoglobin 27.8 pg (25.0-34.0); Mean Corpuscular Hgb Conc 33.5 g/dL (32.0-36.0); Mean Platelet Volume 8.6 fL (9.4-12.4); Platelet Count 118 K/uL (130-400); Red Blood Count 2.77 M/uL (4.20-5.40); White Blood Count 1.07 K/ul (4.8-10.8)
[2023-09-29] MEDS ORDERED: CEFEPIME 2,000 MG/20 ML VIAL IV STA (17:33)
[2023-09-29 17:40] LABS: Alanine Aminotransferase 36 U/L (7-52); Albumin Level 2.8 gm/dl (3.4-5.0); Alkaline Phosphatase 119 U/L (34-104); Anion Gap 7 (3-11); Aspartate Aminotransferase 39 U/L (13-39); BUN Creatinine Ratio 21.7 (10-20); Bilirubin Direct 0.2 mg/dl (0-0.2); Bilirubin,Total 0.6 mg/dl (0.2-1.0); Blood Urea Nitrogen 23 mg/dl (6-23); Calcium 7.8 mg/dl (8.6-10.3); Carbon Dioxide 24 mmol/L (21-32); Chloride 98 mmol/L (98-107); Est GFR (African American) 59.1 ml/min; Glucose 213 mg/dl (70-99(Fasting)); Magnesium 1.6 mg/dl (1.7-2.4); Potassium 3.7 mmol/L (3.5-5.1); Sodium 129 mmol/L (136-145); Total Protein 5.5 gm/dl (6.0-8.3)
[2023-09-29 17:45] LABS: Troponin I High Sensitivity 25.3 pg/ml (0-14)
[2023-09-29 17:51] LABS: Partial Thromboplastin Time 28 Seconds (21-31); Prothrombin Time 11.4 Seconds (9.0-12.0)
[2023-09-29 18:02] LABS: Influenza A virus by PCR Negative (Neg); Influenza B virus by PCR Negative (Neg); RSV by PCR Negative (Neg); SARS CoV2 RNA(COVID-19) Ceph NEGATIVE (Negative)
[2023-09-29] MEDS ORDERED: SODIUM CHLORIDE 0.9% 1,000 ML IV ONE (18:04)
[2023-09-29 18:21] LABS: RBC Morphology Unremarkable
[2023-09-29 18:25] LABS: Appearance Urine Clear (Clear); Bacteria Urine Automated 3+ (Negative); Bilirubin Urine Negative (Negative); Blood Urine Negative (Negative); Color Urine Yellow; Glucose Urine UA Negative (Negative); Ketones Urine Negative (Negative); Leukocyte Esterase Urine Negative (Negative); Nitrite Urine Positive (Negative); Protein Urine 1+ (Negative); RBC Urine Automated 0-4 /hpf (0-4); Specific Gravity Urine 1.013 (1.000-1.030); Urobilinogen Urine Negative (Negative); pH Urine 5.5 (4.5-7.5)
[2023-09-29 18:42] LABS: Immature Granulocytes # (auto) 0.02 K/uL (0.01-0.20); Immature Granulocytes % (auto) 1.9 %; Lymphocytes # (auto) 0.57 K/uL (1.20-3.40); Lymphocytes % (auto) 53.3 %; Neutrophils # (auto) 0.18 K/uL (1.40-6.50); Neutrophils % (auto) 16.8 %
--- NOTE | 2023-09-29 19:01 | History & Physical Report ---
Date of Service September 29, 2023 Assessment & Plan (1) Pancytopenia: (2) Complicated UTI (urinary tract infection): Plan 75-year-old female with type 2 diabetes, CKD stage III, hyperlipidemia, chronic drug-induced interstitial lung disorders, asthma mild persistent, COPD, chronic right-sided heart failure, hypertension, history of CAD, history of CVA, mild aortic stenosis, paroxysmal atrial fibrillation, moderate protein calorie malnutrition, slow transit constipation, vitamin B-12 and thiamine deficiency, history of esophageal dysphagia, GERD, gout, osteoarthritis, primary open-angle glaucoma, polyneuropathy, rheumatoid arthritis involving multiple sites with positive rheumatoid factor, depression, history of C. difficile, history of COVID, history of fever of unknown origin admitted with abnormal labwork at rehab. AMS UTI Discussed with , pt not currently at her baseline. Notes fever of 102 [facility] suggestive of infection Urine Cx pending Chest XRAY with no acute changes CT chest pending Biofire pending Procal elevated at 2.31, lactate wnl Blood cx x2 pending On Cefepime and empiric doxycycline (see below) Pancytopenia Pt with WBC 1.07K, Hgb 7.7, platelets 118K Tick borne testing r/o- pt states she took a tick out off her cat about a month ago Biofire as above to rule out a viral suppression cause Peripheral smear ordered Hematology consult Empiric doxycycline for possible tick borne cause Transfuse hgb as needed if <7 HypoMag Mag 1.6 on admission Replete as needed Hyponatremia Sodium 129 on admission Known to nephrology service Elevated trop Atrial fibrillation Trops elevated at 25.3, downtrended to 23.2 EKG showed atrial fibrillation On metoprolol succinate 50mg BID, not on anticoagulation Doubt ACS Continue other home meds as ordered CODE STATUS: DNR/DNI after discussion with pt's DVT prophylaxis: Deferred in setting of thrombocytopenia Diet: HH/minced and moist Dispo: PT/OT History of Present Illness Chief Complaint: Abnormal labs Primary Care Provider: Leni Moyer DO History obtained from pt's States that [facility] was [facility] and they were concerned that despite intense PT, pt was not getting better. States that he felt her head while he was there and it felt like she had a fever. So he had her temperature measured by nursing there who noted it was 102. Contacted physician there who did further testing and labwork and advised she present to the ED for further evaluation based on those labs. States at baseline that she is confused, she occasionally calls out for "shravan" who is her mother and has been for 20+ years. Pt AAOx1, states that she feels very tired. Allergies Allergy/AdvReac Type Severity Reaction Status Date / Time Influenza Virus Vaccines Allergy Severe FLOWN TO Verified 09/05/23 20:43 [facility]. ciprofloxacin Allergy Intermediate RASH/BLEEDI Verified 09/05/23 20:43 NG methotrexate Allergy Intermediate RASH/PNEUMO Verified 09/05/23 20:43 NITIS Penicillins Allergy Intermediate hives Verified 09/05/23 20:43 ranitidine Allergy Intermediate rash Verified 09/05/23 20:43 Home Medications Medication Instructions Recorded Confirmed Type folic acid 1 mg tablet 1 mg PO QAM 07/20/18 09/29/23 History prednisone 5 mg tablet 5 mg PO QAM 07/20/18 09/29/23 History albuterol sulfate 90 mcg/actuation 2 puff inhalation Q4 PRN Shortness 03/07/19 09/29/23 History aerosol inhaler (ProAir HFA) Of Breath cyanocobalamin (vitamin B-12) 2,000 mcg PO 3XWK 03/07/19 09/29/23 History 1,000 mcg tablet (Vitamin B-12) vit A 300 mcg-C 200 mg-E 27 1 tab PO QAM 03/07/19 09/29/23 History mg-lutein 2 mg and minerals tablet (Ocuvite with Lutein) [id number] 8 mg-folic 400 1 tab PO QAM 11/12/19 09/29/23 History mcg-K 50 mcg-lutein 300 mcg tablet (Centrum Silver Women) montelukast 10 mg tablet 10 mg PO QAM 11/15/20 09/29/23 History latanoprost 0.005 % eye drops 1 drp OPB HS 01/03/21 09/29/23 History solifenacin 10 mg tablet (Vesicare) 10 mg PO QAM 08/22/21 09/29/23 History acetaminophen 325 mg tablet 650 mg PO Q4 PRN Fever Or Pain 03/21/22 09/29/23 History fluticasone furoate 200 1 inh inhalation DAILY 03/21/22 09/29/23 History mcg-vilanterol 25 mcg/dose inhalation powder (Breo Ellipta) thiamine HCl (vitamin B1) 100 mg 50 mg PO QAM 03/21/22 09/29/23 History tablet clopidogrel 75 mg tablet 75 mg PO QAM #30 tabs 04/01/22 09/29/23 Rx Lactobacillus rhamnosus GG 5 5 cell PO BID 08/06/22 09/29/23 History billion cell oral powder packet ([employer]) albuterol sulfate 2.5 mg/3 mL 2.5 mg inhalation QID PRN 08/06/22 09/29/23 History (0.083 %) solution for nebulization Shortness Of Breath Or Wheezing cholecalciferol (vitamin D3) 50 50 mcg PO QAM 08/06/22 09/29/23 History mcg (2,000 unit) capsule (Vitamin D3) guaifenesin 600 mg tablet, 600 mg PO Q12 #10 tabs 09/22/23 09/29/23 Rx extended release 12 hr (Mucinex) isosorbide dinitrate 10 mg tablet 10 mg PO BID #60 tabs 09/22/23 09/29/23 Rx duloxetine 60 mg capsule,delayed 60 mg PO QAM 09/29/23 09/29/23 History release hydroxychloroquine 200 mg tablet 200 mg PO .ON HOLD 09/29/23 09/29/23 History metoprolol succinate 50 mg 50 mg PO AMHS 09/29/23 09/29/23 History tablet,extended release 24 hr miconazole nitrate 2 % topical 1 applic topical BID 09/29/23 09/29/23 History powder (Remedy Antifungal) pantoprazole 40 mg tablet,delayed 40 mg PO AMHS 09/29/23 09/29/23 History release rosuvastatin 20 mg tablet 20 mg PO HS 09/29/23 09/29/23 History silver sulfadiazine 1 % topical 1 applic topical [id number] 09/29/23 09/29/23 History cream (Silvadene) Past Med/Surg History Medical History Wrist fracture, left History of stroke Thrush, oral Hyponatremia Nontraumatic rectus hematoma NSTEMI (non-ST elevated myocardial infarction) UTI (urinary tract infection) Immunosuppressed status DVT prophylaxis CKD (chronic kidney disease), stage III Acute hyponatremia Abnormal ECG Elevated troponin Syncope NSTEMI (non-ST elevated myocardial infarction) Visual hallucinations Hyponatremia RSV infection Recurrent Clostridium difficile diarrhea Chronic steroid use prednisone daily Gout H/O interstitial lung disease "drug induced- methotrexate " Osteoarthritis Glaucoma Peripheral neuropathy Dyslipidemia Rheumatoid arthritis "on chronic steroids" COPD (chronic obstructive pulmonary disease) inhalers prn Depression CKD (chronic kidney disease), stage III Gastroparesis DM type 2 (diabetes mellitus, type 2) GERD (gastroesophageal reflux disease) Migraines DJD of right shoulder NSTEMI (non-ST elevated myocardial infarction) (08/06/13) Asthma inhalers prn HTN (hypertension) Heart disease Surgical History History of tooth extraction all top teeth History of esophagogastroduodenoscopy (EGD) H/O cardiac catheterization "cath 07/2013- single vessel CAD involving apical segment LAD, medical management indicated" S/P total knee arthroplasty "left knee" History of hysterectomy H/O colonoscopy S/P rotator cuff repair "right shoulder" S/P removal of ovarian cyst Family History Father Family history of diabetes mellitus Mother Heart disease Hypertension Other No family history of adverse response to anesthesia Social History Smoking Status: Never smoker Second Hand Exposure: No; Do You Dip or Chew Tobacco: No; Hx Alcohol Use: No Hx Substance Use: No Preferred Language: Turkmen Communication Ability: Effective Pipe [employer]vers Supervisor Required: No Beliefs That Will Affect Care: None marital status: Current Living Situation: Spouse current occupational status: retired current occupation: Former [employer] Feels Safe at Home: Yes Assistive Devices: Bedside Commode, Scooter/Electric Scooter, Walker and Wheelchair Review of Systems Review of Systems: All systems reviewed & are unremarkable except as noted in HPI & below Physical Exam Physical Exam: General: Alert, orientedx1. No acute distress Psych: Appropriate mood and affect Neuro: difficulty with movements in the bed HEENT: NC/AT CV: Irregular rate and rhythm Resp: no increased effort of breathing Abdomen: Soft Extremities: edema in lower extremities bilaterally. Results & Data Results & Data Vital Signs (Past 12 Hours) Vital Signs Temp Pulse Resp BP Pulse Ox O2 Del Method 09/29/23 18:30 69 19 98 Room Air 09/29/23 18:30 124/64 09/29/23 18:09 37.0 C 09/29/23 18:00 151/68 H 09/29/23 18:00 76 21 96 Room Air 09/29/23 17:30 139/64 09/29/23 17:30 70 20 96 09/29/23 17:00 86 22 96 Room Air 09/29/23 17:00 142/71 H 09/29/23 16:30 78 21 97 Room Air 09/29/23 16:30 126/73 09/29/23 16:01 72 27 H 98 Room Air 09/29/23 16:01 126/53 L 09/29/23 16:00 79 26 H 97 09/29/23 15:50 Room Air 09/29/23 15:43 73 09/29/23 15:30 Room Air 09/29/23 15:30 37.4 C 75 18 119/62 96 Room Air
[2023-09-29] MEDS ORDERED: DOXYCYCLINE HYCLATE 100 MG in DEXTROSE 5% MINI-B 100 ML IV STA (19:27)
[2023-09-29 19:44] LABS: Lyme Ab IgG w/WB Rflx Negative (Negative); Lyme Ab IgM w/WB Rflx Negative (Negative)
--- OUTSIDE RECORDS SUMMARY | 2023-09-29 20:12 | External Medical Summary | Summary of Care ---
Author Name Unknown Organization [facility] Address [address] [facility] [place] [address] Phone [phone] Care Team Providers Care Business Operations Manager Name Role Phone Leni Moyer Primary Care Provider [phone] Reason for Visit * Reason Onset Date Comments Skilled Visit 09/29/2023 Encounter Details Date Type Department Care Team (Latest Contact Info) Description 09/29/2023 9:00 AM EST Assisted Visit [facility] [address] [place] [address] Reny Barrera PA-C [address] [place] [address] Pneumonia of right lower lobe due to infectious organism*; Takotsubo cardiomyopathy; Hypertensive heart and kidney disease with chronic right heart failure and stage 3b chronic kidney disease (HCC); Type 2 diabetes mellitus without complication, without long-term current use of insulin ([facility]); Neutropenia, unspecified type ([facility]) Allergies Active Allergy Reactions Criticality Noted Date Comments Ciprofloxacin Bleeding High 05/27/2023 And rash Influenza Virus Vac Live Quad High 06/12/2021 2 years ago, flown to [facility] Methotrexate 08/19/2013 pneumonitis Other Allergy (See Comments) Rash 012 Insecticides cause breathing problems Penicillins Hives 02/01/2001 Ranitidine Rash 07/14/2001 documented as of this encounter (statuses as of 09/29/2023) Medications Medication Sig Dispensed Refills Start Date End Date Status ONETOUCH [place]TRASO[place] [facility] [place] BS twice daily. E 11.9 1 Box Dosing Unit 11 12/15/2016 Active Nystatin (NYSTOP) 015851 UNIT/GM powderIndications:C utaneous candidiasis APPLY TOPICALLY TO AFFECTED AREA 3 TIMES A DAY. SPRINKLE OVER AFFECTED AREA. 15 g 2 12/15/2016 Active Blood Glucose Monitoring Suppl (DeepclassUCH ULTRA SYSTEM) w/Device KIT Twice daily. Dx E 11.9 1 Kit 0 12/25/2017 Active Glucose Blood (DeepclassUCH ULTRA BLUE) STRPIndications:Typ e 2 diabetes mellitus with hemoglobin A1c goal of less than 7.0% ([facility]) Check BS twice daily E11.9 100 Strip 11 12/28/2017 Active Respiratory Therapy Supplies (NEBULIZER/TUBING/M OUTHPIECE) KIT 0 Active Menthol-Zinc Oxide 0.44-20.6 % External Ointment (Calmoseptine) Apply 6 %(Oxygen) topically to affected area as needed. 1 application ext bid 0 Active Culturelle Kids Oral Packet Take 1 Packet by mouth in the morning and 1 Packet before bedtime. 60 Each 0 10/01/2022 Active Vitamin D3 50 MCG (2000 UT) Oral Capsule Take 1 Capsule by mouth in the morning. 30 Capsule 0 10/01/2022 Active Albuterol Sulfate HFA 108 (90 Base) MCG/ACT Inhalation Aerosol SolutionIndications :Moderate persistent asthma without complication Inhale 2 Puffs by mouth every 4 hours as needed for Cough, Shortness of Breath or Wheezing. 18 g 2 10/01/2022 Active Centrum Silver 50+Women Oral Tablet Take 1 Tablet by mouth in the morning. 30 Tablet 0 10/01/2022 Active Ocuvite-Lutein Oral Capsule [...] the morning. 100 Tablet 3 06/15/2023 Active WheelchairIndicatio ns:Rheumatoid arthritis involving multiple sites with positive rheumatoid factor (HCC),Generalized weakness,Personal history of fall 1 small wheelchair. 1 Each 0 07/10/2023 Active Acetaminophen 325 MG Oral Tablet (Tylenol) Take 1 Tablet by mouth every 4 hours as needed for Fever >38C(100.5F), Pain, Mild, Pain, Moderate or Pain, Severe. 0 09/23/2023 Active Fluticasone Furoate-Vilanterol 200-25 MCG/ACT Inhalation Aerosol Powder Breath Activated (BREO ellipta) Inhale 1 Puff by mouth in the morning. Rinse mouth after use. 0 09/23/2023 Active Metoprolol Succinate ER 50 MG Oral Tablet Extended Release 24 Hour (Toprol XL) Take 1 Tablet by mouth in the morning and 1 Tablet before bedtime. 0 09/23/2023 Active B-12-SL 1000 MCG Sublingual Tablet Sublingual (Cyanocobalamin) Take 2 tabs by mouth three days a week 0 09/24/2023 Active guaiFENesin ER 600 MG Oral Tablet Extended Release 12 Hour (Mucinex) Take 1 Tablet by mouth in the morning and 1 Tablet before bedtime. 0 09/24/2023 Active Isosorbide Dinitrate 10 MG Oral Tablet (Isordil) Take 1 Tablet by mouth in the morning and 1 Tablet before bedtime. at 8am, 12 noon and 4pm.. 0 09/24/2023 Active Hydroxychloroquine Sulfate 200 MG Oral Tablet (Plaquenil) Take 1 Tablet by mouth at bedtime. 90 Tablet 0 08/20/2023 09/29/19 24 Discontinu ed(Medicat ion List Clean Up) documented as of this encounter (statuses as of 09/29/2023) Active Problems Problem Noted Date Diagnosed Date Interstitial pulmonary disease 09/24/2023 Takotsubo cardiomyopathy 09/24/2023 Liver mass, right lobe 09/24/2023 Non-STEMI (non-ST elevated myocardial infarction ) 09/23/2023 Pneumonia of right lower lobe due to infectious organism 09/23/2023 FUO (fever of unknown origin) 07/10/2023 Polyneuropathy associated with underlying diseas e 10/15/2022 Paroxysmal atrial fibrillation 10/15/2022 History of 2019 novel coronavirus disease (COVID -19) 09/18/2022 DNR (do not resuscitate) 09/17/2022 H/O Clostridium difficile infection 2022 Primary open angle glaucoma (POAG) of both eyes, mild stage 04/02/2022 History of [place] (myocardial infarction) 04/02/2022 Cerebrovascular disease, arteriosclerotic, post- stroke 04/02/2022 Overview: [...] osteoporosis wit hout current pathological fracture 06/08/2020 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 2019 Chronic right-sided heart failure 11/03/2019 Major depressive disorder, r ecurrent episode, in partial remission 11/03/2019 Last Assessment & Plan: Managed well with Cymbalta 60 mg daily Gastroesophageal reflux disease without esophagi tis 11/03/2019 Last Assessment & Plan: Managed with pantoprazole 40 mg daily Coronary artery disease invo lving mechoopda coronary artery of mechoopda heart without angina pectoris 11/03/2019 Last Assessment & Plan: Stable Continue BB, statin History of rotator cuff tear 05/20/2019 Type 2 diabetes mellitus with peripheral neuropa thy 05/10/2019 Esophageal dysphagia 03/01/2019 Impingement syndrome, shoulder, left 03/26/2018 Generalized osteoarthritis of multiple sites 10/2016 Encounter [...] update of inactive term Other specified glaucoma COPD, moderate Degenerative cervical spinal stenosis documented as of this encounter (statuses as of 09/29/2023) Resolved Problems Problem Noted Date Diagnosed Date Resolved Date Chronic systolic congestive heart failure 09/24/2023 09/24/2023 Pressure ulcer of sacral region, unstageable 3 04/08/2023 Closed nondisplaced fracture of triquetrum of left wrist with routine healing 09/07/2022 04/08/20 23 Migraine 04/02/2022 04/02/2022 Neutropenia 04/02/2022 09/24/2023 Last Assessment & Plan: Cbc 04/18/22 WBC 2.6 No infectious sx Following with heme/onc Thrombocytopenia 04/02/2022 10/15/2022 Prediabetes 06/17/2021 11/25/2021 Chronic [...] polyneuropathy 04/12/2018 05/10/2019 MEDICATION USE AGREEMENT 07/31/2017 Chronic obstructive pulmonary disease 07/23/2017 09/24/2023 Last Assessment & Plan: Continue Breo 1 puff daily, albuterol prn, Controlled substance agreement signed 02/19/2017 12/06/2021 Primary [...] ICD-10 update of inactive term LOC PRIM [id number] 04/12/200310/2016 PURE HYPERCHOLESTEROLEM 12/27/200107/16 Asthma with severity [...] sta ge III (GFR 30-59 ml/min) 05/27/2019 CAD (coronary artery disease ), mechoopda coronary artery 02/24/2022 Overview: duplicate documented as of this encounter (statuses as of 09/29/2023) Immunizations Name Administration Dates Next Due COVID-19 mRNA, LNP-s, No Pre serve, 2-Dose Series (Moderna) 05/06/2021,01/31/2021,01/02/2021 COVID-19, LNP-s, No Preserve , Peet-sucrose, Ages 12+ ([employer] 03/26/2022 COVID-19, mRNA, LNP-s, PF, B ooster, [...] 04/08/2023 Hunger Vital Sign Answer Date Recorded Within the past 12 months, y ou worried that your food would run out before you got the money to buy more. Never true 10/17/19 23 Within the past 12 months, t he food you bought just didn't last and you didn't have money to get more. Never true 10/17/2022 Sex and Gender Information Value Date Recorded Sex Assigned at Not on file Gender Identity Not on file Sexual Orientation Not on file Job Start Date Occupation Industry Not on file Not on file Not on file documented as of this encounter Plan of Treatment Upcoming Encounters Date Type Department Care Team (Late st Contact Info) Description 10/20/2023 1:00 PM EST Office Visit Nephrology [address] [place] [address] Rachna Gonzalez MD [address] [place], [place] [address] 01/29/2024 3:10 PM EDT Office Visit Family Medicine [address] [place] [phone] [place] [address] Health Maintenance Due Date Last Done Comments [...] 07/03/2023 07/03/2022, , 04/12/2020, Additional history exists HbA1c 01/09/2024 07/10/2023, 12/13, 06/10/2022, Additional history exists GFR 03/25/2024 09/25/2023, 05/15, 05/15/2023, Additional history exists Albumin/Creatinine Ratio 04/08/2024 023, 04/15/2022, 06/12/2021, Additional history exists Depression Screening 04/08/2024 04/08/2023 Diabetic Foot Exam 04/08/2024 04/08/2023, 0 06/10/2022, 06/12/2021, Additional history exists CKD PHOS USE SMARTSET 52896 07/10/202406/15, 04/15/2022, 03/12/2021, Additional history exists O2 ASSESSMENT COMPLETED IN PAST YEAR FOR COPD 07/10/2024 07/10/2023 CKD HGB USE SMARTSET 11532 09/25/202409/25, 09/25/2023, 07/10/2023, Additional history exists DXA Scan 05/04/2025 05/04/2023, 03/14, 01/18/2013 Pneumococcal Vaccine: 65+ Years Completed 03/05/2017, 06/28/2015, 11/25/2011, Additional history exists Fecal Occult Blood Test Discontinued 09/23/19, 08/06/2018, 02/21/2004 VITAMIN D LEVEL ONCE IN A LIFETIME-USE SMARTSET# 43297 Completed 10/18/2020, 03/06/2020, 03/26/2018, Additional history exists [...] this encounter Medical Devices Implanted Type Area Peanut Farmer Device Identifier Shelf Expiration Date Model / Serial / Lot Lens 19.5 Sn60wf - [id number] - [id number] Implanted:Qty: 1 on 11/21/2016 by Faraz Jeffers MD at OR [facility] Left: Eye RAMÓN : SURGICAL 05/14/2021 SN60WF.1 95 / [id number] / Lens 19.5 Sn60wf - [id number] - [id number] Implanted:Qty: 1 on 04/22/2019 by Faraz Jeffers MD at OR [facility] Right: Eye RAMÓN : SURGICAL 07/14/2023 [id number].[id number] / [id number] / documented as of this encounter Visit Diagnoses Diagnosis Pneumonia of right lower lobe due to infectious organism- Primary Takotsubo cardiomyopathy Takotsubo syndrome Hypertensive heart and kidney disease with chronic right heart failure and stage 3b chronic kidney disease (HCC) Type 2 diabetes mellitus without complication, without long-term current use of insulin (HCC) Neutropenia, unspecified type (HCC) documented in this encounter Advance Directives [...] were consensually agreed upon. Care Teams Business Operations Manager Relationship Specialty Start Date End Date Leni Moyer DO [address] [place] [address] [place] [id number] PCP - General Internal Medicine 11/18/17 documented as of this encounter
--- OUTSIDE RECORDS SUMMARY | 2023-09-29 20:12 | External Medical Summary | Summary of Care ---
Author Name Unknown Organization [facility] Address [address] [facility] [address] Phone [phone] Care Team Providers Care Life Insurance Sales Agent Name Role Phone Leni Moyer Primary Care Provider [phone] Reason for Visit * Reason Onset Date Comments Long-Term Visit 09/28/2023 Encounter Details Date Type Department Care Team (Latest Contact Info) Description 09/28/2023 10:00 AM EST Long-Term Visit [facility] [address] [place] [address] Reny Barrera PA-C [address] [place] [address] Pneumonia of right lower lobe due to infectious organism*; Takotsubo cardiomyopathy; Coronary artery disease involving [place] coronary artery of [place] heart without angina pectoris; Hypertensive heart and kidney disease with chronic right heart failure and stage 3b chronic kidney disease (HCC); Wound of sacral region, subsequent encounter Allergies Active Allergy Reactions Criticality Noted Date Comments Ciprofloxacin Bleeding High 05/27/2023 And rash Influenza Virus Vac Live Quad High 06/12/2021 2 years ago, flown to [facility] Methotrexate 08/19/2013 pneumonitis Other Allergy (See Comments) Rash 012 Insecticides cause breathing problems Penicillins Hives 02/01/2001 Ranitidine Rash 07/14/2001 documented as of this encounter (statuses as of 09/28/2023) Medications Medication Sig Dispensed Refills Start Date End Date Status ONETOUCH ULTRASOFT LANCETS MISC Check BS twice daily. E 11.9 1 Box Dosing Unit 11 12/15/2016 Active Nystatin (NYSTOP) 540964 UNIT/GM powderIndications:Cu taneous candidiasis APPLY TOPICALLY TO AFFECTED AREA 3 TIMES A DAY. SPRINKLE OVER AFFECTED AREA. 15 g 2 12/15/2016 Active Blood Glucose Monitoring Suppl (EndoStim ULTRA SYSTEM) w/Device KIT Twice daily. Dx E 11.9 1 Kit 0 12/25/2017 Active Glucose Blood (Go800TOUCH ULTRA BLUE) STRPIndications:Type 2 diabetes mellitus with hemoglobin A1c goal of less than 7.0% ([facility]) Check BS twice daily E11.9 100 [...] the morning. 100 Tablet 3 06/15/2023 Active WheelchairIndication s:Rheumatoid arthritis involving multiple sites with positive rheumatoid factor (HCC),Generalized weakness,Personal history of fall 1 small wheelchair. 1 Each 0 07/10/2023 Active Hydroxychloroquine Sulfate 200 MG Oral Tablet (Plaquenil) Take 1 Tablet by mouth at bedtime. 90 Tablet 0 08/20/2023 Active Acetaminophen 325 MG Oral Tablet (Tylenol) [...] 12 noon and 4pm.. 0 09/24/2023 Active documented as of this encounter (statuses as of 09/28/2023) Active Problems Problem Noted Date Diagnosed Date [...] 04/02/2022 History of CA (myocardial infarction) 04/02/2022 Cerebrovascular disease, arteriosclerotic, post- [...] mg daily Coronary artery disease invo lving [place] coronary artery of [place] heart without angina pectoris 11/03/2019 Last [...] as of this encounter (statuses as of 09/28/2023) Resolved Problems Problem Noted Date Diagnosed Date [...] ICD-10 update of inactive term LOC PRIM [id number] 04/12/2003 080 10/2016 PURE HYPERCHOLESTEROLEM 12/27/200107/16 Asthma with severity [...] ml/min) 05/27/2019 CAD (coronary artery disease ), [place] coronary artery 02/24/2022 Overview: duplicate documented as of this encounter (statuses as of 09/28/2023) Immunizations Name Administration Dates Next Due COVID-19 [...] 10/20/2023 1:00 PM EST Office Visit Nephrology [address] [place] [address] Rachna Gonzalez MD [address] [facility] [place] [address] 01/29/2024 3:10 PM EDT Office Visit Family Medicine [address] [place] [address] [place] [phone] Health Maintenance Due Date Last Done Comments [...] Additional history exists CKD PHOS USE SMARTSET 60194 07/10/202406/15, 04/15/2022, 03/12/2021, Additional history exists O2 ASSESSMENT COMPLETED IN PAST YEAR FOR COPD 07/10/2024 07/10/2023 CKD HGB USE SMARTSET 50387 09/25/202409/25, 07/10/2023, 07/10/2023, Additional history exists DXA Scan 05/04/2025 05/04/2023, 03/14, 01/18/2013 Pneumococcal Vaccine: 65+ Years Completed 03/05/2017, 06/28/2015, 11/25/2011, Additional history exists Fecal Occult Blood Test Discontinued 09/23/19, 08/06/2018, 02/21/2004 VITAMIN D LEVEL ONCE IN A LIFETIME-USE SMARTSET# 08109 Completed 10/18/2020, 03/06/2020, 03/26/2018, Additional history exists [...] this encounter Medical Devices Implanted Type Area Automatic Pinsetter Adjuster Device Identifier Shelf Expiration Date Model / Serial / Lot Lens 19.5 Sn60wf - [id number] - [id number] Implanted:Qty: 1 on 11/21/2016 by Faraz Jeffers MD at OR [facility] Left: Eye RAMÓN : SURGICAL 05/14/2021 SN60WF.1 95 / [id number] / Lens 19.5 Sn60wf - [id number] - [id number] Implanted:Qty: 1 on 04/22/2019 by Faraz Jeffers MD at OR [facility] Right: Eye RAMÓN : SURGICAL 07/14/2023 SN60WF.195 / [id number] / documented as of this encounter Visit Diagnoses Diagnosis Pneumonia of right lower lobe due to infectious organism- Primary Takotsubo cardiomyopathy Takotsubo syndrome Coronary artery disease involving [place] coronary artery of [place] heart without angina pectoris Hypertensive heart and kidney disease with chronic right heart failure and stage 3b chronic kidney disease (HCC) Wound of sacral region, subsequent encounter documented in this encounter Advance Directives Latest [...] and were consensually agreed upon. Care Teams Life Insurance Sales Agent Relationship Specialty Start Date End Date Leni Moyer DO [address] [place] [address] [place] [phone] PCP - General Internal Medicine 11/18/17 documented as of this encounter
--- OUTSIDE RECORDS SUMMARY | 2023-09-29 20:12 | External Medical Summary | Summary of Care ---
Author Name Unknown Organization [facility] Address [address] [place] [address] Phone [phone] Care Team Providers Care Wire Walker Name Role Phone Leni Moyer Primary Care Provider Encounter Details Date Type Department Care Team (Late st Contact Info) Description 09/28/2023 Orders Only Lab Mobile Phlebotomy [facility] [address] [place] [address] Ashwini Moran MD [address] [place] [address] [place] [address] Anemia* Allergies Active Allergy Reactions Criticality Noted Date Comments Ciprofloxacin Bleeding High 05/27/2023 And rash Influenza Virus Vac Live Quad High 06/12/2021 2 years ago, flown to [facility] Methotrexate 08/19/2013 pneumonitis Other Allergy (See Comments) Rash 012 Insecticides cause breathing problems Penicillins Hives 02/01/2001 Ranitidine Rash 07/14/2001 documented as of this encounter (statuses as of 09/28/2023) Medications Medication Sig Dispensed Refills Start Date End Date Status ONETOUCH ULTRASOFT LANCETS MISC Check BS twice daily. E 11.9 1 Box Dosing Unit 11 12/15/2016 Active Nystatin (NYSTOP) 485777 UNIT/GM powderIndications:Cu taneous candidiasis APPLY TOPICALLY TO AFFECTED AREA 3 TIMES A DAY. SPRINKLE OVER AFFECTED AREA. 15 g 2 12/15/2016 Active Blood Glucose Monitoring Suppl (ONETOUCH ULTRA SYSTEM) w/Device KIT Twice daily. Dx E 11.9 1 Kit 0 12/25/2017 Active Glucose Blood (ComparisimTOUCH ULTRA BLUE) STRPIndications:Type 2 diabetes mellitus with hemoglobin A1c goal of less than 7.0% ([facility]) Check BS twice daily E11.9 100 Strip [...] Acid 1 MG Oral TabletIndications:Rh eumatoid arthritis ([facility]) Take 1 Tablet by mouth daily. 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 2019 Chronic right-sided heart failure 11/03/2019 Major depressive disorder, r ecurrent episode, in partial remission 11/03/2019 Last Assessment & Plan: Managed well with Cymbalta 60 mg daily Gastroesophageal reflux disease without esophagi tis 11/03/2019 Last Assessment & Plan: Managed with pantoprazole 40 mg daily Coronary artery disease invo lving ramona coronary artery of ramona heart without angina pectoris 11/03/2019 Last Assessment [...] ICD-10 update of inactive term LOC PRIM [id number] 04/12/2003 0810/2016 PURE HYPERCHOLESTEROLEM 12/27/200107/16 Asthma with [...] ml/min) 05/27/2019 CAD (coronary artery disease ), ramona coronary artery 02/24/2022 Overview: duplicate documented as [...] Care Team (Late st Contact Info) Description 09/28/2023 8:40 AM EST Laboratory Lab Mobile Phlebotomy [address] [place] [address] Arrived 10/20/2023 1:00 PM EST Office Visit Nephrology [address] [place] [address] Rachna Gonzalez MD [address] [place] [address] [place] [address] 01/29/2024 3:10 PM EDT Office Visit Family Medicine [address] [place] [phone] [address] [place] [address] Scheduled Orders Name Type Priority Associated Diagnoses Orde r Schedule HGB Lab Routine Anemia Expected: 09/28/2023, Expires: 5 HCT Lab Routine Anemia Expected: 09/28/2023, Expires: 5 Health Maintenance Due Date Last Done Comments [...] Additional history exists CKD PHOS USE SMARTSET 30944 07/10/202406/15, 04/15/2022, 03/12/2021, Additional history exists O2 ASSESSMENT COMPLETED IN PAST YEAR FOR COPD 07/10/2024 07/10/2023 CKD HGB USE SMARTSET 11505 09/25/202409/25, 07/10/2023, 07/10/2023, Additional history exists DXA Scan 05/04/2025 05/04/2023, 03/14, 01/18/2013 Pneumococcal Vaccine: 65+ Years Completed 03/05/2017, 06/28/2015, 11/25/2011, Additional history exists Fecal Occult Blood Test Discontinued 09/23/19, 08/06/2018, 02/21/2004 VITAMIN D LEVEL ONCE IN A LIFETIME-USE SMARTSET# 39298 Completed 10/18/2020, 03/06/2020, 03/26/2018, Additional history exists [...] this encounter Medical Devices Implanted Type Area Housekeeping Attendant Device Identifier Shelf Expiration Date Model / Serial / Lot Lens 19.5 Sn60wf - [id number] - [id number] Implanted:Qty: 1 on 11/21/2016 by Faraz Jeffers MD at OR [facility] Left: Eye RAMÓN : SURGICAL 05/14/2021 SN60WF.1 95 / [id number] / Lens 19.5 Sn60wf - [id number] - [id number] Implanted:Qty: 1 on 04/22/2019 by Faraz Jeffers MD at OR [facility] Right: Eye RAMÓN : SURGICAL 07/14/2023 SN60WF.195 / [id number] / documented as of this encounter Visit Diagnoses Diagnosis Anemia- Primary Anemia, unspecified documented in this encounter Advance Directives [...] and were consensually agreed upon. Care Teams Wire Walker Relationship Specialty Start Date End Date Leni Moyer DO [address] [place] [address] [place] [address] PCP - General Internal Medicine 11/18/17 documented as of this encounter
--- OUTSIDE RECORDS SUMMARY | 2023-09-29 20:13 | External Medical Summary | Continuity Of Care Document ---
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 Essential (primary) hypertension 09/22/2023 Active I25.10 Atherosclerotic hear t disease of ione coronary artery without angina pectoris 09/22/2023 Active Z86.73 Personal history of transient ischemic attack (TIA), and cerebral infarction without residual deficits 09/22/2023 Active I35.0 Nonrheumatic aortic (valve) stenosis 09/22/2023 Active I48.0 Paroxysmal atrial fibrillation 09/22/2023 Active E44.0 Moderate protein-calorie malnutrition Active Z86.19 Personal history of other infectious and parasitic diseases 09/22/2023 Active M06.9 Rheumatoid arthritis, unspecified 09/22/2023 00 Active VITAL SIGNS Date Time Diastolic blood pressure Systolic blood pressure Body height Body weight Temperature SpO2 Blood Sugar Pulse Respirations 109 79465 4 81.00 mm[Hg] - Sitting 129.00 mm[Hg] - Sitting 60 NI 98.50 Oral 95.00 % 67.00/ min 18.00/min 109 24864 6 81.00 mm[Hg] - Lying Down 129.00 mm[Hg] - Lying Down 60 NI 98.50 Ear 95.00 % 67.00/ min 18.00/min 109 72376 2 81.00 mm[Hg] - Lying Down 129.00 mm[Hg] - Lying Down 60 NI 121.50 NI 98.50 Ear 95.00 % 67.00/ min 18.00/min 110 98378 7 81.00 mm[Hg] - Lying Down 129.00 mm[Hg] - Lying Down 60 NI 121.50 NI 98.50 Ear 95.00 % 67.00/ min 18.00/min 110 54992 5 81.00 mm[Hg] - Lying Down 129.00 mm[Hg] - Lying Down 60 NI 118.00 NI 98.50 Ear 95.00 % 67.00/ min 18.00/min Immunizations Vaccine Date Status COVID-19 01/02/2021 Completed COVID-19 01/31/2021 Completed COVID-19 05/06/2021 Completed COVID-19 03/26/2022 Completed Influenza 04/03/2022 Allergy (PCV13)Pneumococcal 06/28/2015 Completed (PPSV23)Pneumococcal 03/05/2017 Completed Tetanus 10/31/2004 Completed TDaP 10/02/2010 Completed
--- OUTSIDE RECORDS SUMMARY | 2023-09-29 20:13 | External Medical Summary ---
Author Name Unknown Address Unknown Organization [id number] [address] [place] [id number] Laboratory Report Ordering Provider Test Date Status SAMRA ALVAREZ 09/25/2023 05:48:00 Final Observation Date Value Abnormality Reference (Units ) Status WBC, Total 09/25/2023 05:48:00 1.54 Below low normal 4. 00-10.80 (K/uL) Final RBC 09/25/2023 05:48:00 3.06 3.85-5.15 (M/uL) Final Hemoglobin 09/25/2023 05:48:00 9.0 Below low normal 12 .0-15.3 (g/dL) Final HCT 09/25/2023 05:48:00 27.2 Below low normal 36. 0-45.2 (%) Final MCV 09/25/2023 05:48:00 88.9 81.5-97.5 (fL) Final MCH 09/25/2023 05:48:00 29.4 27.0-34.0 (pg) Final MCHC 09/25/2023 05:48:00 33.1 32.0-36.0 (g/dL) Final RDW 09/25/2023 05:48:00 18.3 11.5-15.5 (%) Final Platelets 09/25/2023 05:48:00 147 140-400 (K /uL) Final MPV 09/25/2023 05:48:00 8.7 6.6-11.1 ( fL) Final Performing Location [facility] [address] [place] [id number]
--- OUTSIDE RECORDS SUMMARY | 2023-09-29 20:13 | External Medical Summary ---
Author Name Unknown Address Unknown [facility] [address] [place] [id number] Laboratory Report Ordering Provider Test Date Status SAMRA ALVAREZ 09/25/2023 05:48:00 Final Observation Date Value Abnormality Reference (Units ) Status SYNC LEUKOCYTES IN BLOOD BY AUTOMATED COUNT 09/25/2023 05:48:00 1.54 Below low normal 4.00-10.80 (K/uL) Final Neutrophils/100 leukocytes in Blood by Manual count 09/25/2023 05:48:00 24.0 Below low normal 40.0-75.0 (%) Final Lymphocytes/100 leukocytes in Blood by Manual count 09/25/2023 05:48:00 66.0 Above high normal 18.0-42.0 (%) Final Monocytes/100 leukocytes in Blood by Manual count 09/25/2023 05:48:00 10.0 1.0-11.0 (%) Final Neutrophils [#/volume] in Blood by Manual count 09/25/2023 05:48:00 0.37 Below low normal 1.80-7.70 (K/uL) Final Lymphocytes [#/volume] in Blood by Manual count 09/25/2023 05:48:00 1.02 1.00-4.80 (K/uL) Final Monocytes [#/volume] in Blood by Manual count 09/25/2023 05:48:00 0.15 0.00-1.10 (K/uL) Final Performing Location [facility] [address] [place] [id number]
--- OUTSIDE RECORDS SUMMARY | 2023-09-29 20:13 | External Medical Summary | Summary of Care ---
Author Name Unknown Organization [facility] Address [address] [facility] [place] [address] Phone [phone] Care Team Providers Care Rough Rib Grader Name Role Phone Leni Moyer Primary Care Provider [phone] Reason for Visit * Reason Onset Date Comments Skilled Visit 09/25/2023 Encounter Details Date Type Department Care Team (Latest Contact Info) Description 09/25/2023 7:30 AM EST Jail Visit [facility] [address] [place] [address] Reny Barrera PA-C [address] [place] [address] Pneumonia of right lower lobe due to infectious organism*; Takotsubo cardiomyopathy; Coronary artery disease involving ely shoshone coronary artery of ely shoshone heart without angina pectoris; Hypertensive heart and kidney disease with chronic right heart failure and stage 3b chronic kidney disease (HCC); Liver mass, right lobe Allergies Active Allergy Reactions Criticality Noted Date Comments Ciprofloxacin Bleeding High 05/27/2023 And rash Influenza Virus Vac Live Quad High 06/12/2021 2 years ago, flown to [facility] Methotrexate 08/19/2013 pneumonitis Other Allergy (See Comments) Rash 012 Insecticides cause breathing problems Penicillins Hives 02/01/2001 Ranitidine Rash 07/14/2001 documented as of this encounter (statuses as of 09/25/2023) Medications Medication Sig Dispensed Refills Start Date End Date Status ONETOUCH ULTRASOFT LANCETS MISC Check BS twice daily. E 11.9 1 Box Dosing Unit 11 12/15/2016 Active Nystatin (NYSTOP) 201449 UNIT/GM powderIndications:Cu taneous candidiasis APPLY TOPICALLY TO AFFECTED AREA 3 TIMES A DAY. SPRINKLE OVER AFFECTED AREA. 15 g 2 12/15/2016 Active Blood Glucose Monitoring Suppl (Tradegecko ULTRA SYSTEM) w/Device KIT Twice daily. Dx E 11.9 1 Kit 0 12/25/2017 Active Glucose Blood (Lockdown NetworksTOUCH ULTRA BLUE) STRPIndications:Type 2 diabetes mellitus [...] as of this encounter (statuses as of 09/25/2023) Active Problems Problem Noted Date Diagnosed Date [...] both eyes, mild stage 04/02/2022 History of PR (myocardial infarction) 04/02/2022 Cerebrovascular disease, arteriosclerotic, post- [...] osteoporosis wit hout current pathological fracture 06/08/2020 [facility] current use of therapeutic drug 2019 Chronic right-sided heart failure 11/03/2019 Major depressive disorder, r ecurrent episode, in partial remission 11/03/2019 Last Assessment & Plan: Managed well with Cymbalta 60 mg daily Gastroesophageal reflux disease without esophagi tis 11/03/2019 Last Assessment & Plan: Managed with pantoprazole 40 mg daily Coronary artery disease invo lving ely shoshone coronary artery of ely shoshone heart without angina pectoris 11/03/2019 Last Assessment [...] as of this encounter (statuses as of 09/25/2023) Resolved Problems Problem Noted Date Diagnosed Date [...] ICD-10 update of inactive term LOC PRIM [id number] 04/12/200310/2016 PURE HYPERCHOLESTEROLEM 12/27/200107/16 Asthma with severity [...] ml/min) 05/27/2019 CAD (coronary artery disease ), ely shoshone coronary artery 02/24/2022 Overview: duplicate documented as of this encounter (statuses as of 09/25/2023) Immunizations Name Administration Dates Next Due COVID-19 [...] as of this encounter Progress Notes * Reny Barrera PA-C - 09/25/2023 11:09 AM EST Name: Belem Rodriguez Date of :1945 TRANSITION EVENT: Type: Skilled visit Date: September 25 Code Status: No Code This note pertains to care provided at [facility]. Please see facility medical record for original note. This note is not to be edited or addended in EpicCare. Editing or addending needs to occur in the facilities medical record. Subjective: Belem Rodriguez is a 78 year old female. Patient being seen for skilled visit Chief Complaint Patient presents with Skilled Visit HPI: Pt is here for rehabilitation following [facility] admission for sepsis, RLL pneumonia, Takatsubo cardiomyopathy, Non STEMI, CHF and finding of right liver lobe mass. Pt is comfortable. Tolerating Therapy. Eating, drinking and sleeping at baseline. Vital signs stable. No cough, chest congestion. No diarrhea. Voiding ok. Process in place for outpatient evaluation of liver mass. CBC Results: Results for orders placed or performed in visit on 09/25/23 CBC Result Value Ref Range WBC 1.54 (L) 4.00 - 10.80 K/uL RBC 3.06 3.85 - 5.15 M/uL HGB 9.0 (L) 12.0 - 15.3 g/dL HCT 27.2 (L) 36.0 - 45.2 % MCV 88.9 81.5 - 97.5 fL MCH 29.4 27.0 - 34.0 pg MCHC 33.1 32.0 - 36.0 g/dL RDW 18.3 11.5 - 15.5 % PLT 147 140 - 400 K/uL MPV 8.7 6.6 - 11.1 fL Hemoglobin Results: Lab Results Component Value Date/Time HGB - [facility] 9.0 (L) 09/25/2023 05:48 AM HGB - [facility] 12.9 07/10/2023 04:19 PM HGB - [facility] 13.3 05/27/2023 11:04 AM HGB - [facility] 13.9 08/13/2020 02:10 PM HGB - [facility] 12.8 03/06/2020 01:30 PM HGB - [facility] 11.6 (L) 11/21/2019 11:49 AM Basic Panel Results: Results for orders placed or performed in visit on 09/25/23 BASIC METABOLIC PANEL Result Value Ref Range BUN 26 (H) 6 - 20 mg/dL Creatinine 1.0 0.5 - 1.0 mg/dL Estimated Glomerular Filtration Rate 58 (L) >=60 mL/min Sodium 135 135 - 146 mmol/L Potassium 3.9 3.5 - 5.1 mmol/L Chloride 98 98 - 107 mmol/L CO2 27 22 - 32 mmol/L Anion Gap 10 7 - 15 mmol/L Glucose 98 70 - 120 mg/dL Calcium 8.7 8.4 - 10.2 mg/dL Creatinine Results: Lab Results Component Value Date/Time CREATININE - [facility] 1.0 09/25/2023 05:48 AM CREATININE - [facility] 1.1 (H) 05/27/2023 11:04 AM CREATININE - [facility] 1.3 (H) 05/15/2023 03:47 PM CREATININE - [facility] 1.3 (H) 08/13/2020 02:10 PM CREATININE - [facility] 1.2 (H) 03/22/2020 11:15 AM CREATININE - [facility] 1.2 (H) 03/06/2020 01:30 PM CREATININE CJ 257 03/06/2020 01:30 PM CREATININE CJ 277 10/13/2018 03:30 PM CREATININE CJ 47 07/22/2017 03:30 PM CREATININE, RANDOM URINE - [facility] 54 04/08/2023 02:23 PM CREATININE, RANDOM URINE - [facility] 109 04/15/2022 12:36 PM CREATININE, RANDOM URINE - [facility] 83 06/12/2021 03:35 PM CREATININE, RANDOM URINE - [facility] 256 03/06/2020 01:30 PM CREATININE, RANDOM URINE - [facility] 279 03/01/2019 10:59 AM CREATININE, RANDOM URINE - [facility] 220 04/12/2018 03:25 PM CREATININE-OUTSIDE LAB 1.06 (A) 08/06/2018 12:00 AM CREATININE-OU[facility] 3.19 (A) 07/20/2018 12:00 AM CREATININE-OUTSIDE LAB 0.83 02/13/2017 12:00 AM Potassium Results: Lab Results Component Value Date/Time POTASSIUM - [facility] 3.9 09/25/2023 05:48 AM POTASSIUM - [facility] 4.1 05/27/2023 11:04 AM POTASSIUM - [facility] 5.4 (H) 05/15/2023 03:47 PM POTASSIUM - [facility] 3.2 (L) 08/13/2020 02:10 PM POTASSIUM - [facility] 3.9 03/22/2020 11:15 AM POTASSIUM - [facility] 3.2 (L) 03/06/2020 01:30 PM POTASSIUM-OUTSIDE [facility] 4.2 08/06/2018 12:00 AM POTASSIUM-OUTSIDE LAB 4.8 07/20/2018 12:00 AM POTASSIUM-OUTSIDE LAB 3.8 02/13/2017 12:00 AM Sodium Results: Lab Results Component Value Date/Time SODIUM - [facility] 135 09/25/2023 05:48 AM SODIUM - [facility] 135 05/27/2023 11:04 AM SODIUM - [facility] 131 (L) 05/15/2023 03:47 PM SODIUM - [facility] 137 08/13/2020 02:10 PM SODIUM - [facility] 141 03/22/2020 11:15 AM SODIUM - [facility] 143 03/06/2020 01:30 PM Patient Active Problem List Diagnosis Code Other allergic rhinitis J30.89 Other specified glaucoma H40.89 LUMB-LUMBOSAC DISC DEGEN M51.37 Carpal tunnel syndrome G56.00 Slow transit constipation K59.01 Knee joint replacement status Z96.659 Gouty arthropathy M10.9 DYSLIPIDEMIA, GOAL LDL BELOW 100 E78.5 Vitamin D deficiency E55.9 COPD, moderate ([facility]) J44.9 Chronic drug-induced interstitial lung disorders ([facility]) J70.3 B12 deficiency E53.8 Degenerative cervical spinal stenosis M48.02 Peripheral neuropathy G62.9 Abnormality of gait R26.9 Thiamine deficiency E51.9 Asthma, mild persistent J45.30 Rheumatoid arthritis involving multiple sites with positive rheumatoid factor ([facility]) M05.79 Adjustment disorder with anxious mood F43.22 Essential hypertension with goal blood pressure less than 140/90 I10 Encounter for long-term (current) use of medications Z79.899 Generalized osteoarthritis of multiple sites M15.9 Impingement syndrome, shoulder, left M75.42 Esophageal dysphagia R13.19 Type 2 diabetes mellitus with peripheral neuropathy ([facility]) E11.42 History of rotator cuff tear Z87.39 Chronic right-sided heart failure ([facility]) I50.812 Major depressive disorder, recurrent episode, in partial remission ([facility]) F33.41 Gastroesophageal reflux disease without esophagitis K21.9 Coronary artery disease involving ely shoshone coronary artery of ely shoshone heart without angina pectoris I25.10 buttermaker current use of therapeutic drug Z79.899 Age-related osteoporosis without current pathological fracture M81.0 Type 2 diabetes mellitus with hemoglobin A1c goal of less than 8.0% ([facility]) E11.9 Moderate protein-calorie malnutrition (HCC) E44.0 Type 2 diabetes mellitus with stage 3b chronic kidney disease, without long-term current use of insulin (HCC) E11.22, N18.32 Hypertensive heart and kidney disease with chronic right heart failure and stage 3b chronic kidney disease (HCC) I13.0, I50.812, N18.32 Primary open angle glaucoma (POAG) of both eyes, mild stage H40.1131 History of PR (myocardial infarction) I25.2 Cerebrovascular disease, arteriosclerotic, post-stroke I67.2, Z86.73 Mild aortic stenosis I35.0 H/O Clostridium difficile infection Z86.19 DNR (do not resuscitate) Z66 History of 2019 novel coronavirus disease (COVID-19) Z86.16 Polyneuropathy associated with underlying disease (HCC) G63 Paroxysmal atrial fibrillation ([facility]) I48.0 FUO (fever of unknown origin) R50.9 Non-STEMI (non-ST elevated myocardial infarction) ([facility]) I21.4 Pneumonia of right lower lobe due to infectious organism J18.9 Interstitial pulmonary disease (HCC) J84.9 Takotsubo cardiomyopathy I51.81 Liver mass, right lobe R16.0 Past Medical History: Diagnosis Date Abnormal results of liver function studies 11/2007 Abnormality of gait 08/12/2013 Adjustment disorder with anxious mood 03/13/2016 Asthma, mild persistent 07/18/2015 Asthma, moderate persistent 05/31/2010 Asthma, severity to be determined B12 deficiency 07/28/2013 Bite of other animal except arthropod(E906.3) 10/31/2004 cat bite to back of right hand C. difficile diarrhea 03/28/2019 CAD (coronary artery disease), ely shoshone coronary artery 08/10/2013 LAD disease Carpal tunnel [...] disease, chronic, stage III (GFR 30-59 ml/min) ([facility]) Kidney disease, chronic, stage III (GFR 30-59 ml/min) ([facility]) Knee joint replacement status 11/01/2007 left knee Migraine without aura Obesity, BMI not known Open wound of upper limb 11/05/2004 Other specified glaucoma Peripheral neuropathy 08/12/2013 Persistent insomnia 03/29/2013 Prediabetes 06/17/2021 Pressure ulcer of sacral region, unstageable ([facility]) 10/15/2022 Primary localized osteoarthrosis of shoulder region 09/02/2006 Primary localized osteoarthrosis, lower leg 04/12/2003 Primary osteoarthritis of right shoulder 10/04/2015 Pseudophakia OU Rheumatoid arthritis involving multiple sites with positive rheumatoid factor ([facility]) 03/05/2016 Rheumatoid arthritis(714.0) Rotator cuff rupture 10/16/1996 right shoulder Rupture of anterior cruciate ligament of right knee 06/21/2020 chronic Thiamine deficiency 08/15/2013 Type 2 diabetes mellitus with diabetic chronic kidney disease ([facility]) 04/03/2015 Type 2 diabetes mellitus with hemoglobin A1c goal of less than 8.0% ([facility]) 03/01/2019 Type 2 diabetes mellitus with peripheral neuropathy ([facility]) 05/10/2019 Vitamin D deficiency 04/11/2010 Past Surgical History: Procedure Laterality Date ARTHROPLASTY KNEE TOTAL 11/01/2007 left knee - Dr. Barnett BONE MARROW BIOPSY Left 07/11/2022 BONE MARROW BIOPSY (IES) performed by Kai Riggins MD at OR [facility] CARDIAC CATH SCANNED RESULT 08/10/2013 moderate disease LAD- Dr. Meza COLONOSCOPY, DIAGNOSTIC (RECTUM) 01/07/2017 diverticulosis, repeat 10 yrs/COLONOSCOPY FLEXIBLE PROXIMAL DIAGNOSTIC performed by Wood Menezes MD at ENDOSCOPY [facility] COLONOSCOPY, DIAGNOSTIC (RECTUM) 02/14/2021 diverticulosis / COLONOSCOPY FLEXIBLE PROXIMAL DIAGNOSTIC performed by Vinny Starr MD at ENDOSCOPY [facility] COLONOSCOPY, GI REFERRAL OP 12/2006 normal - Dr. Menezes EGD, FLEXIBLE, DIAGNOSTIC 12/1998 EGD, FLEXIBLE, DIAGNOSTIC 03/09/2019 acid reflux on /[facility] INJECT DX/THER SUBSTANCE INTERLAMINAR LUMBAR/SACRAL W IMAGE GUIDE 12/17/2017 INJECTION SPINE LUMBAR OR SACRAL performed by Andrea Mendoza DO at OR [facility] LAPAROSCOPY; CHOLECYSTECTOMY 11/13/2019 REMOVAL OF OVARY/OVIDUCT(S) ovarian cyst - unilateral REMOVE CATARACT, INSERT LENS PROSTH Left 11/21/2016 EXTRACAPSULAR CATARACT REMOVAL WITH INTRAOCULAR LENS performed by Faraz Jeffers MD at OR [facility] REMOVE CATARACT, INSERT LENS PROSTH 04/22/2019 OD Arnold [id number] 19.5 REMOVE CATARACT, INSERT LENS PROSTH Right 04/22/2019 EXTRACAPSULAR CATARACT REMOVAL WITH INTRAOCULAR LENS performed by Faraz Jeffers MD at OR [facility] REPAIR ARM TENDON/MUSCLE 11/03/1996 rotator cuff repair - right shoulder REVERSE TOTAL SHOULDER ARTHROPLASTY Right 12/21/2015 Dr. Ly- [facility], repaired earlier x 2 at [facility] TOTAL ABD HYSTERECTOMY W/WO REMOVAL OF TUBE(S) fibroids UPPER ENDOSCOPY GI REFERRAL OP 12/25/2006 acid reflux--negative for H.Pylori Family History Problem Relation Age of Onset Breast Cancer Mother Heart Disorder Son anthony Ear Disease Son hearing problems Arthritis Son Asthma Son trixie Arthritis Son Stroke Mother Heart Disorder Mother pacemaker Other (ra) Mother Arthritis Father Stroke Father Glaucoma Mother Hypertension Grandmother (Maternal) Heart Disorder Grandfather (Paternal) Hypertension Grandfather (Paternal) Family Status Relation Status Mo at age 95 heart block, glaucoma,HTN,CHF, renal failure Fa at age 50s HTN, stroke, DM Cj Alive Son Alive Son Alive MGMA (Not Specified) PGFA (Not Specified) Social History Socioeconomic History Marital status: Spouse name: Not on file Number of children: 3 Years of education: Not on file Highest education level: Not on file Occupational History Occupation: disability 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 Tobacco Use Smoking status: Never [...] Resource Strain: Not on file Food Insecurity: No Food Insecurity (10/17/2022) Hunger Vital Sign Worried About Running Out of Food in the Last Year: Never true Ran Out of Food in the Last Year: Never true Transportation Needs: Not on file Physical Activity: Not on file Stress: Not on file Social Connections: Not on file Intimate Partner Violence: Not on file Housing Stability: Not on file Review of patient's allergies indicates: Allergen Reactions Ciprofloxacin Bleeding And rash Influenza Virus Vaccine [Influenza Virus Vac Live Quad] 2 years ago, flown to [facility] Methotrexate pneumonitis Other Allergy (See Comments) Rash Insecticides cause breathing problems Penicillins Hives Ranitidine Rash I have reviewed medications and allergies. Please refer to MAR in the facility's medical record forthe most up-to-date medication list as this cannot be edited in [place]. Review of Systems: Constitutional ROS: No change in weight, less weakness, less fatigue and No fevers, sweats, or chills Nose ROS: No nasal stuffiness and No significant epistaxis Mouth/Throat ROS: No thrush or No sore throat Neck ROS: No lumps or masses, No swollen glands, No recent swelling in thyroid area and No significant pain in neck Pulmonary ROS: No cough, sputum, or hemoptysis, No wheezing, No shortness of breath and No recent change in breathing Cardiovascular ROS: No chest pain, No shortness of breath, No edema, No palpitations and No syncope Gastrointestinal ROS: No abdominal pain, No change in bowel habits, No significant change in appetite, No nausea, vomiting, diarrhea, or constipation and No dysphagia Skin/Integumentary ROS: No rash and No itching Neurologic ROS: No headaches and No seizures Psychiatric ROS: No depression, No anxiety and No psychosis Sleep: No sleep disorders OBJECTIVE: PHYSICALEXAM: I reviewed the most recent facilities vitals. General: alert, no distress, well nourished and well developed Eye Exam: Conjunctiva are pink and non-injected, sclera clear Nose: no mucosal erythema, no mucosal edema, no purulent discharge Oropharynx: no exudate, no erythema, lips, buccal mucosa, and tongue normal and mucous membranes are moist Neck: supple, no adenopathy, non-tender, neck veins flat, trachea midline Heart: regular rate & rhythm, no murmurs and no gallops Lungs: normal respiratory rate and rhythm, no chest wall tenderness, lungs clear to auscultation Abdomen: abdomen soft, non-tender, normal bowel sounds and no masses or organomegaly Extremities: no edema, no clubbing, no cyanosis Skin: skin color, texture, turgor are normal, no rashes or significant lesions ASSESSMENT: Pneumonia of right lower lobe due to infectious organism (Primary) Clinically improved Completed antibiotic course at [facility] Will follow Takotsubo cardiomyopathy Stable No chest pains of palpitations Conitnue Plavix 75mg daily Coronary artery disease involving ely shoshone coronary artery of ely shoshone heart without angina pectoris Stable no chest pain or angina Coninue Isordil 10mg TID Hypertensive heart and kidney disease with chronic right heart failure and stage 3b chronic kidney disease (HCC) Stable Continue Toprol XL 50mg BID Liver mass, right lobe Outpatient GI consult pending PLAN: Reviewed CBC, BMP, Lytes and Continue present medication(s):as ordered. [facility] Home Treatment Given: as above Electronically signed by: Reny Barrera PA-C [facility] Deepthi Rodriguez is a 78 year old female patient. ICD-10-CM 1. Pneumonia of right lower lobe due to infectious organism J18.9 2. Takotsubo cardiomyopathy I51.81 3. Coronary artery disease involving ely shoshone coronary artery of ely shoshone heart without angina oeboammhQ85.10 4. Hypertensive heart and kidney disease with chronic right heart failure and stage 3b chronic kidney disease (HCC) I13.0 I50.812 N18.32 5. Liver mass, right lobe R16.0 Past Medical History: Diagnosis Date Abnormal results of liver function studies 11/2007 Abnormality of gait 08/12/2013 Adjustment disorder with anxious mood 03/13/2016 Asthma, mild persistent 07/18/2015 Asthma, moderate persistent 05/31/2010 Asthma, severity to be determined B12 deficiency 07/28/2013 Bite of other animal except arthropod(E906.3) 10/31/2004 cat bite to back of right hand C. difficile diarrhea 03/28/2019 CAD (coronary artery disease), ely shoshone coronary artery 08/10/2013 LAD disease Carpal tunnel syndrome 08/2006 mild left Chronic drug-induced interstitial lung disorders ([facility]) 06/06/2013 Methotrxate Closed nondisplaced fracture of triquetrum of left wrist with routine healing 09/07/2022 Clostridioides difficile diarrhea Degenerative cervical spinal stenosis Depressive disorder, not elsewhere classified 11/23/2009 DM type 2 causing renal disease ([facility]) 06/1999 DM type 2, goal A1c below [...] disease, chronic, stage III (GFR 30-59 ml/min) ([facility]) Kidney disease, chronic, stage III (GFR 30-59 ml/min) ([facility]) Knee joint replacement status 11/01/2007 left knee Migraine without aura Obesity, BMI not known Open wound of upper limb 11/05/2004 Other specified glaucoma Peripheral neuropathy 08/12/2013 Persistent insomnia 03/29/2013 Prediabetes 06/17/2021 Pressure ulcer of sacral region, unstageable ([facility]) 10/15/2022 Primary localized osteoarthrosis of shoulder region 09/02/2006 Primary localized osteoarthrosis, lower leg 04/12/2003 Primary osteoarthritis of right shoulder 10/04/2015 Pseudophakia OU Rheumatoid arthritis involving multiple sites with positive rheumatoid factor ([facility]) 03/05/2016 Rheumatoid arthritis(714.0) Rotator cuff rupture 10/16/1996 right shoulder Rupture of anterior cruciate ligament of right knee 06/21/2020 chronic Thiamine deficiency 08/15/2013 Type 2 diabetes mellitus with diabetic chronic kidney disease ([facility]) 04/03/2015 Type 2 diabetes mellitus with hemoglobin A1c goal of less than 8.0% (HCC) 03/01/2019 Type 2 diabetes mellitus with peripheral neuropathy (HCC) 05/10/2019 Vitamin D deficiency 04/11/2010 not currently . Reny Barrera PA-C 09/25/2023 minutes were spent in this visit more than half the time was spent counselling or coordinating care. documented in this encounter Plan of Treatment Upcoming Encounters Date Type Department Care Team (Late st Contact Info) Description 10/20/2023 1:00 PM EST Office Visit Nephrology [address] [place] [address] Rachna Gonzalez MD [address] [place] [address] [place] [address] 01/29/2024 3:10 PM EDT Office Visit Family Medicine [address] [place] [phone] [address] [place] [address] Health Maintenance Due Date Last Done Comments [...] Additional history exists CKD PHOS USE SMARTSET 99371 07/10/202406/15, 04/15/2022, 03/12/2021, Additional history exists O2 ASSESSMENT COMPLETED IN PAST YEAR FOR COPD 07/10/2024 07/10/2023 CKD HGB USE SMARTSET 32125 09/25/202409/25, 07/10/2023, 07/10/2023, Additional history exists DXA Scan 05/04/2025 05/04/2023, 03/14, 01/18/2013 Pneumococcal Vaccine: 65+ Years Completed 03/05/2017, 06/28/2015, 11/25/2011, Additional history exists Fecal Occult Blood Test Discontinued 09/23/19, 08/06/2018, 02/21/2004 VITAMIN D LEVEL ONCE IN A LIFETIME-USE SMARTSET# [id number] Completed 10/18/2020, 03/06/2020, 03/26/2018, Additional history exists [...] this encounter Medical Devices Implanted Type Area Ladle Repairman Device Identifier Shelf Expiration Date Model / Serial / Lot Lens 19.5 Sn60w - [id number] - [id number] Implanted:Qty: 1 on 11/21/2016 by Faraz Jeffers MD at OR [facility] Left: Eye ARNOLD : SURGICAL 05/14/2021 SN60WF.1 95 / [id number] 2 / Lens 19.5 Sn60wf - [id number] - [id number] Implanted:Qty: 1 on 04/22/2019 by Faraz Jeffers MD at OR [facility] Right: Eye ARNOLD : SURGICAL 07/14/2023 SN60WF.195 / [id number] / documented as of this encounter Visit Diagnoses Diagnosis Pneumonia of right lower lobe due to infectious organism- Primary Takotsubo cardiomyopathy Takotsubo syndrome Coronary artery disease involving ely shoshone coronary artery of ely shoshone heart without angina pectoris Hypertensive heart and kidney disease with chronic right heart failure and stage 3b chronic kidney disease (HCC) Liver mass, right lobe Unspecified disorder of liver documented in this encounter Advance Directives Latest [...] were consensually agreed upon. Care Teams Rough Rib Grader Relationship Specialty Start Date End Date Leni Moyer DO [address] [place] [address] [place] [phone] PCP - General Internal Medicine 11/18/17 documented as of this encounter
--- OUTSIDE RECORDS SUMMARY | 2023-09-29 20:13 | External Medical Summary | Continuity Of Care Document ---
Author Name Unknown Address [address] [place] [address] Organization [facility]) Care Team Providers Care Refrigeration Lead Name Role Phone Dean Karlana Primary Care Provider [phone] VITAL SIGNS Date Time Diastolic blood pressure Systolic blood pressure Body height Body weight Temperature SpO2 Blood Sugar Pulse Respirations 109 33968 4 81.00 mm[Hg] - Sitting 129.00 mm[Hg] - Sitting 60 NI 98.50 Oral 95.00 % 67.00/ min 18.00/min 109 90348 6 81.00 mm[Hg] - Lying Down 129.00 mm[Hg] - Lying Down 60 NI 98.50 Ear 95.00 % 67.00/ min 18.00/min 109 10300 2 81.00 mm[Hg] - Lying Down 129.00 mm[Hg] - Lying Down 60 NI 121.50 NI 98.50 Ear 95.00 % 67.00/ min 18.00/min 89732 110 19682 7 81.00 mm[Hg] - Lying Down 129.00 mm[Hg] - Lying Down 60 NI 121.50 NI 98.50 Ear 95.00 % 67.00/ min 18.00/min Immunizations Vaccine Date Status COVID-19 01/02/2021 Completed COVID-19 01/31/2021 Completed COVID-19 05/06/2021 Completed COVID-19 03/26/2022 Completed Influenza 04/03/2022 Allergy (PCV13)Pneumococcal 06/28/2015 Completed (PPSV23)Pneumococcal 03/05/2017 Completed Tetanus 10/31/2004 Completed TDaP 10/02/2010 Completed
--- OUTSIDE RECORDS SUMMARY | 2023-09-29 20:13 | External Medical Summary | Summary of Care ---
Author Name Unknown Organization [facility] [address] [facility] [address] Phone [phone] Care Team Providers Care Malware Analyst Name Role Phone Leni Moyer Primary Care Provider [phone] Reason for Visit * Reason Onset Date Comments Longterm Visit 09/23/2023 Encounter Details Date Type Department Care Team (Latest Contact Info) Description 09/23/2023 8:00 AM EST Longterm Visit [facility] [address] [place] [address] Reny Barrera PA-C [address] [place] [address] Sepsis without acute organ dysfunction, due to unspecified organism (HCC)*; Pneumonia of right lower lobe due to infectious organism; Non-STEMI (non-ST elevated myocardial infarction) (HCC); ANDRESSA (acute kidney injury) (HCC); Hypertensive heart and kidney disease with chronic right heart failure and stage 3b chronic kidney disease (HCC); Type 2 diabetes mellitus with stage 3b chronic kidney disease, without long-term current use of insulin (HCC); Paroxysmal atrial fibrillation (HCC); Recurrent Clostridioides difficile infection; Chronic drug-induced interstitial lung disorders (HCC); Cerebrovascular disease, arteriosclerotic, post-stroke; B12 deficiency; 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 E 11.9 1 Box Dosing Unit 11 12/15/2016 Active Nystatin (NYSTOP) 002362 UNIT/GM powderIndications:C utaneous candidiasis APPLY TOPICALLY TO AFFECTED AREA 3 TIMES A DAY. SPRINKLE OVER AFFECTED AREA. 15 g 2 12/15/2016 Active Blood Glucose Monitoring Suppl (Sunible ULTRA SYSTEM) w/Device KIT Twice daily. Dx E 11.9 1 Kit 0 12/25/2017 Active Glucose Blood (Vizalytics TechnologyUCH ULTRA BLUE) STRPIndications:Typ e 2 diabetes mellitus with hemoglobin A1c goal of less than 7.0% ([facility]) Check BS twice daily E11.9 [...] 1 Tablet before bedtime. 0 09/23/2023 Active Acetaminophen 325 MG Oral Tablet Take 1 Tablet by mouth as needed. 0 09/23/19 24 Discontinu ed(Refill) Fluticasone Furoate-Vilanterol 200-25 MCG/ACT Inhalation Aerosol Powder Breath Activated (BREO ellipta)Indications :Mild persistent asthma without complication Inhale 1 Puff by mouth in the morning. Rinse mouth after use. 180 Blister Dosing Unit 3 10/01/2022 09/23/19 24 Discontinu ed(Medicat ion List Clean Up) Ferrous Sulfate 325 (65 Fe) MG Oral Tablet (Feosol) Take 1 Tablet by mouth daily with breakfast. 30 Tablet 0 10/01/2022 09/23/19 24 Discontinu ed(Medicat ion List Clean Up) B-12 1000 MCG Oral CapsuleIndications: B12 deficiency 2000mcg Thursday, Thursday, and Thursday 30 Capsule 0 10/01/2022 09/23/19 24 Discontinu ed(Medicat ion List Clean Up) Azithromycin 250 MG Oral Tablet (Zithromax)Indicati ons:Bronchitis, complicated Take 2 tabs by mouth on the first day, then 1 tab daily on days two through five 6 Tablet 0 05/27/2023 09/23/19 24 Discontinu ed(Medicat ion List Clean Up) Vancomycin HCl 125 MG Oral Capsule (Vancocin) Take 1 Capsule by mouth every 6 hours. 360 Capsule 0 07/01/2023 09/23/19 24 Discontinu ed(Medicat ion List Clean Up) Metoprolol Succinate ER 25 MG Oral Tablet Extended Release 24 Hour (toPROL XL) Take 1 Tablet by mouth in the morning. 100 Tablet 1 07/10/2023 09/23/19 24 Discontinu ed(Medicat ion List Clean Up) amLODIPine Besylate 5 MG Oral Tablet (Norvasc) Take 1 Tablet by mouth in the morning. 100 Tablet 1 07/10/2023 09/23/19 24 Discontinu ed(Medicat ion List Clean Up) documented as of this encounter (statuses as of 09/23/2023) Active Problems Problem Noted Date Diagnosed Date Non-STEMI (non-ST elevated myocardial infarction ) 09/23/2023 [...] both eyes, mild stage 04/02/2022 History of SC (myocardial infarction) 04/02/2022 Neutropenia 04/02/2022 Last Assessment [...] osteoporosis wit hout current pathological fracture 06/08/2020 correction current use of therapeutic drug 2019 Chronic right-sided heart failure 11/03/2019 Major depressive disorder, r ecurrent episode, in partial remission 11/03/2019 Last Assessment & Plan: Managed well with Cymbalta 60 mg daily Gastroesophageal reflux disease without esophagi tis 11/03/2019 Last Assessment & Plan: Managed with pantoprazole 40 mg daily Coronary artery disease invo lving seneca coronary artery of seneca heart without angina pectoris 11/03/2019 Last Assessment [...] as of this encounter (statuses as of 09/23/2023) Resolved Problems Problem Noted Date Diagnosed Date [...] ICD-10 update of inactive term LOC PRIM [id number] 04/12/200310/2016 PURE HYPERCHOLESTEROLEM 12/27/200107/16 Asthma with severity [...] moderate 12/05/2014 CAD (coronary artery disease ), seneca coronary artery 02/24/2022 Overview: duplicate documented as of this encounter (statuses as of 09/23/2023) Immunizations Name Administration Dates Next Due COVID-19 [...] Care Team (Late st Contact Info) Description 09/24/2023 8:00 AM EST Longterm Visit [address] [place] [address] Ashwini Moran MD [address] [place] [address] [place] [address] 01/29/2024 3:10 PM EDT Office Visit Family Medicine [address] [place] [phone] Leni Moyer DO [address] [place] [address] [place] [id number] Health Maintenance Due Date Last Done Comments [...] Additional history exists CKD HGB USE SMARTSET 77479 07/10/202407/10, 07/10/2023, 05/27/2023, Additional history exists CKD PHOS USE SMARTSET 96137 07/10/202406/15, 04/15/2022, 03/12/2021, Additional history exists O2 ASSESSMENT COMPLETED IN PAST YEAR FOR COPD 07/10/2024 07/10/2023 DXA Scan 05/04/2025 05/04/2023, 03/14, 01/18/2013 Pneumococcal Vaccine: 65+ Years Completed 03/05/2017, 06/28/2015, 11/25/2011, Additional history exists Fecal Occult Blood Test Discontinued 09/23/19, 08/06/2018, 02/21/2004 VITAMIN D LEVEL ONCE IN A LIFETIME-USE SMARTSET# [id number] Completed 10/18/2020, 03/06/2020, 03/26/2018, Additional history exists [...] this encounter Medical Devices Implanted Type Area Pipe Supervisor Device Identifier Shelf Expiration Date Model / Serial / Lot Lens 19.5 [id number] - [id number] - [id number] Implanted:Qty: 1 on 11/21/2016 by Faraz Jeffers MD at [facility] Left: Eye RAMÓN : SURGICAL 05/14/2021 [id number].1 95 / [id number] / Lens 19.5 Sn60wf - [id number] - [id number] Implanted:Qty: 1 on 04/22/2019 by Faraz Jeffers MD at OR [facility] Right: Eye RAMÓN : SURGICAL 07/14/2023 [id number].[id number] / [id number] / documented as of this encounter Visit Diagnoses Diagnosis Sepsis without acute organ dysfunction, due to unspecified organism (HCC)- Primary Pneumonia of right lower lobe due to infectious organism Non-STEMI (non-ST elevated myocardial infarction) (HCC) Acute myocardial infarction, subendocardial infarction, episode of care unspecified ANDRESSA (acute kidney injury) (HCC) Acute kidney failure, unspecified Hypertensive heart and kidney disease with chronic right heart failure and stage 3b chronic kidney disease (HCC) Type 2 diabetes mellitus with stage 3b chronic kidney disease, without long-term current use of insulin (HCC) Paroxysmal atrial fibrillation (HCC) Atrial fibrillation 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 Care Teams Malware Analyst Relationship Specialty Start Date End Date Leni Moyer DO [address] [place] [address] [place] [id number] PCP - General Internal Medicine 11/18/17 documented as of this encounter
--- OUTSIDE RECORDS SUMMARY | 2023-09-29 20:13 | External Medical Summary | Summary of Care ---
Author Name Unknown Organization [facility] Address [address] [facility] [facility] [address] Phone [phone] Care Team Providers Care Staff Electronic Warfare Officer Name Role Phone Leni Moyer DO Primary Care Provider [phone] Reason for Visit * Reason Onset Date Comments [facility] Visit - Admission 09/24/2023 Encounter Details Date Type Department Care Team (Latest Contact Info) Description 09/24/2023 8:00 AM EST [facility] Visit [address] [place] [address] Ashwini Moran MD [address] [place] [address] [place] [id number] Pneumonia of right lower lobe due to infectious organism*; Takotsubo cardiomyopathy; Type 2 diabetes mellitus with peripheral neuropathy (HCC); Liver mass, right lobe; Moderate protein-calorie malnutrition (HCC); Type 2 diabetes mellitus with stage 3b chronic kidney disease, without long-term current use of insulin (HCC); Paroxysmal atrial fibrillation (HCC); Cerebrovascular disease, arteriosclerotic, post-stroke; Rheumatoid arthritis involving multiple sites with positive rheumatoid factor (HCC); Chronic drug-induced interstitial lung disorders (HCC); Hypertensive heart and kidney disease with chronic right heart failure and stage 3b chronic kidney disease (HCC); COPD, moderate (HCC); Major depressive disorder, recurrent episode, in partial remission (HCC) Allergies Active Allergy Reactions Criticality Noted Date Comments Ciprofloxacin Bleeding High 05/27/2023 And rash Influenza Virus Vac Live Quad High 06/12/2021 2 years ago, flown to [facility] Methotrexate 08/19/2013 pneumonitis Other Allergy (See Comments) Rash 012 Insecticides cause breathing problems Penicillins Hives 02/01/2001 Ranitidine Rash 07/14/2001 documented as of this encounter (statuses as of 09/24/2023) Medications Medication Sig Dispensed Refills Start Date End Date Status ONETOUCH ULTRASOFT LANCETS MISC Check BS twice daily. E 11.9 1 Box Dosing Unit 11 7 Active Nystatin (NYSTOP) 250134 UNIT/GM powderIndications:C utaneous candidiasis APPLY TOPICALLY TO AFFECTED AREA 3 TIMES A DAY. SPRINKLE OVER AFFECTED AREA. 15 g 2 7 Active Blood Glucose Monitoring Suppl (dotSyntax ULTRA SYSTEM) w/Device KIT Twice daily. Dx E 11.9 1 Kit 0 8 Active Glucose Blood ([email or web address] ULTRA BLUE) STRPIndications:Typ e 2 diabetes mellitus [...] before bedtime. 60 Each 0 3 Active Vitamin D3 50 MCG (2000 UT) Oral Capsule Take 1 Capsule by mouth in the morning. 30 Capsule 0 3 Active Albuterol Sulfate HFA 108 (90 Base) MCG/ACT Inhalation Aerosol SolutionIndications :Moderate persistent asthma without complication Inhale 2 Puffs by mouth every 4 hours as needed for Cough, Shortness of Breath or Wheezing. 18 g 2 3 Active Centrum Silver 50+Women Oral Tablet Take 1 Tablet by mouth in the morning. 30 Tablet 0 3 Active Ocuvite-Lutein Oral Capsule [...] the morning. 100 Tablet 3 3 Active WheelchairIndicatio ns:Rheumatoid arthritis involving multiple sites with positive rheumatoid factor (HCC),Generalized weakness,Personal history of fall 1 small wheelchair. 1 Each 0 3 Active Hydroxychloroquine Sulfate 200 MG Oral Tablet (Plaquenil) Take 1 Tablet by mouth at bedtime. 90 Tablet 0 3 Active Acetaminophen 325 MG Oral Tablet (Tylenol) Take 1 Tablet by mouth every 4 hours as needed for Fever >38C(100.5F), Pain, Mild, Pain, Moderate or Pain, Severe. 0 4 Active Fluticasone Furoate-Vilanterol 200-25 MCG/ACT Inhalation Aerosol Powder Breath Activated (BREO ellipta) Inhale 1 Puff by mouth in the morning. Rinse mouth after use. 0 4 Active Metoprolol Succinate ER 50 MG Oral Tablet Extended Release 24 Hour (Toprol XL) Take 1 Tablet by mouth in the morning and 1 Tablet before bedtime. 0 4 Active B-12-SL 1000 MCG Sublingual Tablet Sublingual (Cyanocobalamin) Take 2 tabs by mouth three days a week 0 4 Active guaiFENesin ER 600 MG Oral Tablet Extended Release 12 Hour (Mucinex) Take 1 Tablet by mouth in the morning and 1 Tablet before bedtime. 0 4 Active Isosorbide Dinitrate 10 MG Oral Tablet (Isordil) Take 1 Tablet by mouth in the morning and 1 Tablet before bedtime. at 8am, 12 noon and 4pm.. 0 4 Active Levalbuterol HCl 1.25 MG/3ML Inhalation Nebulization Solution (Xopenex) via nebulizer every 4 hours as needed for SOB or cough and wheezing Dx: Asthma J45.30 72 mL 3 3 09/24/19 24 Discontinued documented as of this encounter (statuses as of 09/24/2023) Active Problems Problem Noted Date Diagnosed Date [...] both eyes, mild stage 04/02/2022 History of TX (myocardial infarction) 04/02/2022 Cerebrovascular disease, arteriosclerotic, post- [...] osteoporosis wit hout current pathological fracture 06/08/2020 alf current use of therapeutic drug 2019 Chronic right-sided heart failure 11/03/2019 Major depressive disorder, r ecurrent episode, in partial remission 11/03/2019 Last Assessment & Plan: Managed well with Cymbalta 60 mg daily Gastroesophageal reflux disease without esophagi tis 11/03/2019 Last Assessment & Plan: Managed with pantoprazole 40 mg daily Coronary artery disease invo lving circle coronary artery of circle heart without angina pectoris 11/03/2019 Last Assessment [...] as of this encounter (statuses as of 09/24/2023) Resolved Problems Problem Noted Date Diagnosed Date [...] ICD-10 update of inactive term LOC PRIM [id number] 04/12/200310/2016 PURE HYPERCHOLESTEROLEM 12/27/200107/16 Asthma with severity [...] ml/min) 05/27/2019 CAD (coronary artery disease ), circle coronary artery 02/24/2022 Overview: duplicate documented as of this encounter (statuses as of 09/24/2023) Immunizations Name Administration Dates Next Due COVID-19 [...] as of this encounter Progress Notes * Ashwini Moran MD - 09/24/2023 10:00 AM EST ADMISSION HISTORY and PHYSICAL TRANSITION EVENT: Type: SNF admission Date: September 22 Code Status: No Code Name: Belem Rodriguez Date of : 1945 This note pertains to care provided at [facility]. Please see facility medical record for original note. This note is not to be edited or addended in [employer]. Editing or addending needs to occur in the facilities medical record. S: Belem Rodriguez had been admitted to [facility] from [facility] for PT and OT. Recently admitted to [facility] on 09/05/2023 because of sepsis, right lung pneumonia, acute meabolic encephalopathy, acute systolic CHF secondary to Takotsubo cardiomyopathy, and NSTEMI and was transferred here and admitted on 09/22/2023. From On service note: "78 year old female, patient of Dr Leni Moyer, is admitted to [facility] from [facility] on 09/22/23 for rehabilitation. Pt, known to [facility] from previous rehab stay due to Influenza A, Covid 19 infection andfx left triquetrium. History of CAD, PAF (on Plavix), RA, Glaucoma, drug induced interstitial fibrosis, asthma, Thiamine def, Vitamin B12 def, HLD,HTN, DM with CKD stage III, GERD, CHF, recurrent C.diff infections, s/p CVA, presented to [facility] ED on 09/05/23 with fever, confusion and lethargy worsening over past two days. According to , pt was tachycardic at home with HR of 150 per minute. Pt has been on long dose of Vancomycin 125mg Q six hours for past several months for C.diff. Pt's last C.diff culture was negative 07/14/23. According to pt's PCP notes, intermittant confusion, lethargy and fevers are not uncommon and have always resolved. Process is in place for authorization for VOWST oral capsules. In the ED, T: 36.4 C. HR: 80's to 133 per minute. RR: 24 to 33 per minute. BP: as low at 99/66 mmHg. O2 saturation: 91 to 94% on nasal O2. CBC: WBC: 7.94. H/H: 12.8 and 36.8. PLT: 245,000. Creatinine elevated 1.75 with baseline 1.1. Sodium low at 129. K+ 4.5, CO2 low at 21. Glucose: 324mg%. Magnesium, calcium normal. Lactate elevated 2.5. Procalcitonin elevated 4.22. LFTs normal except for elevated Alk Phos at 116. Troponin HS elevated 977.5. Urinalysis essentially unremarkable. Complete respiratory panel negative. EKG showed AF with RVR. RBBB, T wave abnormality lateral leads. Urine C&S and Blood C&S no growth. XpffabbifxA2P: 6.3% Chest xray showed cardiomegaly with mild pulmonary edema and small pleural effusions. Mild bibasilar and right midlung opacities. CT scan of brain showed moderate to severe ischemic microangiopathy, mild blooming artifact with brain parenchyma suggestiing hemosiderin deposition. No acute intracranial abnormalities. . CT scan of chest showed mild infiltrates in right lung with small bilatearl pleural effusions. CT scan of abdomen and pelvis without contrast showed no acute findings. Pt was admitted with diagnosis of sepsis and possible NonSTEMI and RLL pneumonia. She was placed onBiPAP. Begun on Cefepime instead of Zosyn due to pt's PCN allergy. Bedside echocardiogram showed some decreased function but no obvious pericardial effusion or B-lines. Heparin begun. Formal echocardiogram was performed on 09/10/23 and showed LV systolic function moderately reduced with LVEF: 35 to40%. Severe hypokinesis to akinesis involving apical segments with sparing of basal and mid segments. Findings suggestiing stress induced (Takotsubo) cardiomyopathy vs multivessel ischemic heart disease. Cardiology consult was obtained with Dr Meza. Elevated troponin suspected to be secondary to demand ischemia, DKA, and stress induced cardiomyopathy rather than acute plague rupture event. Discontinuation of Toprol XL and changed to Lopressor 25mg TID to improve rate control. Hold amlodipine. Continue Plavix and Statin. On 09/14/23, pt began having rectal bleeding. Hemoglobin dropped to 8.7 AST elevated to 498 ALT: 344.Total bilirubin normal. RUQ US showed hepatic parenchyma heterogeneous and mildly echogenic. Ill defined 4.9 cm mass within right hepatic lobe likely correlating to 2cm lesion noted on the 08/13/[address] scan of abdomen and pelvis with contrast showed no hydronephrosis, smallbilateral pleural effusions with possible aspiration pneumonia, diverticulosis without diverticulitis. THERE WAS NOTED 5.4 CM BY 5.6 CM RIGHT HEPATIC LOBE LESION WHICH IS NEW. RECOMMEND HEPATIC MRI. Consideration was given for IR biopsy of liver lesion but due to pt's significant acute illness, it was recommended to have this performed when she is recovered. She was begun on Protonix 40 mg daily. Infectious Disease consult was obtained. Pt was not experiencing diarrhea and her C Diff PCR is negative on 09/08/23. It was recommended to discontinue oral vancomycin and follow closely. Pt receivedtotal of 2 days of Cefepime and Vancomycin followed by 5 days of Ertapenem for full antibiotic course. Nephrology consult was obtained due to ANDRSESA. No need for dialysis was decided due to pt's stable electroly chas except for mild hyponatremia and pt's poor oral fluid intake. Her ANDRESSA was due to ischemicATN in setting of sepsis and low EF. Possibility of dialysis in the future was discussed with family. Recommended conservative management for now. Pt was continuing to have altered mental status. Neurology consult was obtained. Differential diagnosis: acute encephalopathy vs CND infections. Because pt is on Heparin, LP was not performed. MRI brain with and without contrast showed moderate to severe microvascular ischemia and mild blooming artifact with brain parenchyma suggestiing hemosiderin deposition.simlar findings as CT scan of brain. Followup cardiology consult on 09/17/23 noted LV systolic function returned completely to normal without wall motion abnormality. Suspect secondary to acute sepsis with multiorgan involvement. Recommended to continue Lopressor 25mg TID and avoiding LILI inhibitor for now. Pt's condition began to stablize. Her mental status returned to her baseline. Discharge H/H: 10.3 and 31.5. creatinine: 0.94. Lopressor was changed to Toprol XL 50mg BID on discharge medication list.Pt's Plaquenil is currently on hold until determination is made when to resume Pt is now admitted to [facility] on 09/22/23 for rehabilitation." Patient seen with at bedside. She is eating cookies and cheese puffs currently. She states she is feeling better. Denies shortness of breath. States she has a slight cough. Lives with her . She denies pain currently and reports appetite is improving. It is recommended to pursue liver biopsy under IR guidance as an outpatient when stable. She has followed with GI in the past but missed her last appointment on 04/17/23 and had not rescheduled. For ANDRESSA and hyponatremia, Nephrology recommended outpatient BMP, urine and sodium osmolality, ACR, random urine sodium, UACM to be done 3 days before her outpatient appointment. These labs are ordered but no appointment scheduled at this time. Past Medical History: Patient Active Problem List Diagnosis Code Other allergic rhinitis J30.89 Other specified glaucoma H40.89 LUMB-LUMBOSAC DISC DEGEN M51.37 Carpal tunnel syndrome G56.00 Slow transit constipation K59.01 Knee joint replacement status Z96.659 Gouty arthropathy M10.9 DYSLIPIDEMIA, GOAL LDL BELOW 100 E78.5 Vitamin D deficiency E55.9 COPD, moderate ([facility]) J44.9 Chronic drug-induced interstitial lung disorders ([facility]) J70.3 B12 deficiency E53.8 Degenerative cervical spinal stenosis M48.02 Peripheral neuropathy G62.9 Abnormality of gait R26.9 Thiamine deficiency E51.9 Asthma, mild persistent J45.30 Rheumatoid arthritis involving multiple sites with positive rheumatoid factor ([facility]) M05.79 Adjustment disorder with anxious mood F43.22 Essential hypertension with goal blood pressure less than 140/90 I10 Encounter for long-term (current) use of medications Z79.899 Generalized osteoarthritis of multiple sites M15.9 Impingement syndrome, shoulder, left M75.42 Esophageal dysphagia R13.19 Type 2 diabetes mellitus with peripheral neuropathy (HCC) E11.42 History of rotator cuff tear Z87.39 Chronic right-sided heart failure ([facility]) I50.812 Major depressive disorder, recurrent episode, in partial remission ([facility]) F33.41 Gastroesophageal reflux disease without esophagitis K21.9 Coronary artery disease involving circle coronary artery of circle heart without angina pectoris I25.10 alf current use of therapeutic drug Z79.899 Age-related osteoporosis without current pathological fracture M81.0 Type 2 diabetes mellitus with hemoglobin A1c goal of less than 8.0% (HCC) E11.9 Moderate protein-calorie malnutrition ([facility]) E44.0 Type 2 diabetes mellitus with stage 3b chronic kidney disease, without long-term current use of insulin (HCC) E11.22, N18.32 Hypertensive heart and kidney disease with chronic right heart failure and stage 3b chronic kidney disease ([facility]) I13.0, I50.812, N18.32 Primary open angle glaucoma (POAG) of both eyes, mild stage H40.1131 History of TX (myocardial infarction) I25.2 Cerebrovascular disease, arteriosclerotic, post-stroke I67.2, Z86.73 Mild aortic stenosis I35.0 H/O Clostridium difficile infection Z86.19 DNR (do not resuscitate) Z66 History of 2019 novel coronavirus disease (COVID-19) Z86.16 Polyneuropathy associated with underlying disease ([facility]) G63 Paroxysmal atrial fibrillation ([facility]) I48.0 FUO (fever of unknown origin) R50.9 Non-STEMI (non-ST elevated myocardial infarction) ([facility]) I21.4 Pneumonia of right lower lobe due to infectious organism J18.9 Interstitial pulmonary disease ([facility]) J84.9 Takotsubo cardiomyopathy I51.81 Liver mass, right lobe R16.0 Current Outpatient Medications Medication Sig Dispense Refill B-12-SL 1000 MCG Sublingual Tablet Sublingual (Cyanocobalamin) Take 2 tabs by mouth three days a week guaiFENesin ER 600 MG Oral Tablet Extended Release 12 Hour (Mucinex) Take 1 Tablet by mouth in the morning and 1 Tablet before bedtime. Isosorbide Dinitrate 10 MG Oral Tablet (Isordil) Take 1 Tablet by mouth in the morning and 1 Tabletbefore bedtime. at 8am, 12 noon and 4pm.. InfluAdsTOUCH ULTRASOFT LANCETS MISC Check BS twice daily. E 11.9 1 Box Dosing Unit 11 Nystatin (NYSTOP) 609328 UNIT/GM powder APPLY TOPICALLY TO AFFECTED AREA 3 TIMES A DAY. SPRINKLE OVER AFFECTED AREA. 15 g 2 Blood Glucose Monitoring Suppl ([email or web address] ULTRA SYSTEM) w/Device KIT Twice daily. Dx E 11.9 1 Kit 0 Glucose Blood ([email or web address] ULTRA BLUE) STRP Check BS twice daily E11.9 100 Strip 11 Respiratory Therapy Supplies (NEBULIZER/TUBING/MOUTHPIECE) KIT Menthol-Zinc Oxide 0.44-20.6 % External Ointment (Calmoseptine) Apply 6 %(Oxygen) topically to affected area as needed. 1 application ext bid Culturelle Kids Oral Packet Take 1 Packet by mouth in the morning and 1 Packet before bedtime. 60 Each 0 Vitamin D3 50 MCG (2000 UT) Oral Capsule Take 1 Capsule by mouth in the morning. 30 Capsule 0 Albuterol Sulfate HFA 108 (90 Base) MCG/ACT Inhalation Aerosol Solution Inhale 2 Puffs by mouth every 4 hours as needed for Cough, Shortness of Breath or Wheezing. 18 g 2 Centrum Silver 50+Women Oral Tablet Take 1 Tablet by mouth in the morning. 30 Tablet 0 Ocuvite-Lutein Oral Capsule Take 1 Capsule by mouth in the morning. 30 Capsule 0 predniSONE 5 MG Oral Tablet (Deltasone) TAKE [...] needed, for shortness of breath or wheezing Triamcinolone Acetonide 0.1 % External Cream (Aristocort) [...] mouth in the morning. 100 Tablet 3 Wheelchair 1 small wheelchair. 1 Each 0 Hydroxychloroquine Sulfate 200 MG Oral Tablet (Plaquenil) Take 1 Tablet by mouth at bedtime. 90 Tablet 0 Acetaminophen 325 MG Oral Tablet (Tylenol) Take 1 Tablet by mouth every 4 hours as needed for Fever>38C(100.5F), Pain, Mild, Pain, Moderate or Pain, Severe. Fluticasone Furoate-Vilanterol 200-25 MCG/ACT Inhalation Aerosol Powder Breath Activated (BREO ellipta) Inhale 1 Puff by mouth in the morning. Rinse mouth after use. Metoprolol Succinate ER 50 MG Oral Tablet Extended Release 24 Hour (Toprol XL) Take 1 Tablet by mouth in the morning and 1 Tablet before bedtime. No current facility-administered medications for this visit. Review of patient's allergies indicates: Allergen Reactions Ciprofloxacin Bleeding And rash Influenza Virus Vaccine [Influenza Virus Vac Live Quad] 2 years ago, flown to [facility] Methotrexate pneumonitis Other Allergy (See Comments) Rash Insecticides cause breathing problems Penicillins Hives Ranitidine Rash Social History Tobacco Use Smoking status: Never Smokeless tobacco: Never Substance Use Topics Alcohol use: Not Currently Comment: ocassional Vaping/E-Cigarette Use Vaping/E-Cigarette Use Never User Vaping/E-Cigarette Substances Vaping/E-Cigarette Devices Past Surgical History: Procedure Laterality Date ARTHROPLASTY KNEE TOTAL 11/01/2007 left knee - Dr. Barnett BONE MARROW BIOPSY Left 07/11/2022 BONE MARROW BIOPSY (IES) performed by Kai Riggins MD at OR [facility] CARDIAC CATH SCANNED RESULT 08/10/2013 moderate disease LAD- Dr. Meza COLONOSCOPY, DIAGNOSTIC (RECTUM) 01/07/2017 diverticulosis, repeat 10 yrs/COLONOSCOPY FLEXIBLE PROXIMAL DIAGNOSTIC performed by Wood Menezes MD at [facility] COLONOSCOPY, DIAGNOSTIC (RECTUM) 02/14/2021 diverticulosis / COLONOSCOPY FLEXIBLE PROXIMAL DIAGNOSTIC performed by Vinny Starr MD at [facility]COPY [facility] COLONOSCOPY, GI REFERRAL OP 12/2006 normal - Dr. Menezes EGD, FLEXIBLE, DIAGNOSTIC 12/1998 EGD, FLEXIBLE, DIAGNOSTIC 03/09/2019 acid reflux on bx/[facility] INJECT DX/THER SUBSTANCE INTERLAMINAR LUMBAR/SACRAL W IMAGE GUIDE 12/17/2017 INJECTION SPINE LUMBAR OR SACRAL performed by Andrea Mendoza DO at OR [facility] LAPAROSCOPY; CHOLECYSTECTOMY 11/13/2019 REMOVAL OF OVARY/OVIDUCT(S) ovarian cyst - unilateral REMOVE CATARACT, INSERT LENS PROSTH Left 11/21/2016 EXTRACAPSULAR CATARACT REMOVAL WITH INTRAOCULAR LENS performed by Faraz Jeffers MD at [facility] REMOVE CATARACT, INSERT LENS PROSTH 04/22/2019 OD Arnold SN60WF 19.5 REMOVE CATARACT, INSERT LENS PROSTH Right 04/22/2019 EXTRACAPSULAR CATARACT REMOVAL WITH INTRAOCULAR LENS performed by Faraz Jeffers MD at OR [facility] REPAIR ARM TENDON/MUSCLE 11/03/1996 rotator cuff repair - right shoulder REVERSE TOTAL SHOULDER ARTHROPLASTY Right 12/21/2015 Dr. Ly- [facility], [facility] ABD HYSTERECTOMY W/WO REMOVAL OF [...] Alive MGMA (Not Specified) PGFA (Not Specified) Results for orders placed or performed in visit on 07/14/23 CLOSTRIDIUM DIFFICILE, PCR Result Value Ref Range Stool Consistency Semi-liquid Clostridium difficile Result Negative Negative. No C. difficile toxin B gene DNA detected by PCR (Amplified Probe). *Note: Due to a large number of results and/or encounters for the requested time period, some results have not been displayed. A complete set of results can be found in Results Review. CBC Results: Results for orders placed or performed in visit on 07/10/23 CBC Result Value Ref Range WBC 3.10 (L) 4.00 - 10.80 K/uL RBC 4.61 3.85 - 5.15 M/uL HGB 12.9 12.0 - 15.3 g/dL HCT 37.0 36.0 - 45.2 % MCV 80.3 81.5 - 97.5 fL MCH 28.0 27.0 - 34.0 pg MCHC 34.9 32.0 - 36.0 g/dL RDW 16.1 11.5 - 15.5 % PLT 182 140 - 400 K/uL MPV 8.7 6.6 - 11.1 fL nRBCs 0 <=0 /100 WBCs Basic Panel Results: Results for orders placed or performed in visit on 01/12/23 BASIC METABOLIC PANEL Result Value Ref Range BUN 18 6 - 20 mg/dL Creatinine 1.5 (H) 0.5 - 1.0 mg/dL Estimated Glomerular Filtration Rate 37 (L) >=60 mL/min Sodium 132 (L) 135 - 146 mmol/L Potassium 4.5 3.5 - 5.1 mmol/L Chloride 94 (L) 98 - 107 mmol/L CO2 28 22 - 32 mmol/L Anion Gap 10 7 - 15 mmol/L Glucose 113 70 - 120 mg/dL Calcium 10.3 (H) 8.4 - 10.2 mg/dL Hemoglobin AIC Results: Lab Results Component Value Date/Time HEMOGLOBIN A1C - [facility] 7.1 (H) 07/10/2023 04:19 PM HEMOGLOBIN A1C - [facility] 6.0 (H) 12/29/2022 11:36 AM HEMOGLOBIN A1C - [facility] 6.6 (H) 06/10/2022 04:08 PM HEMOGLOBIN A1C - [facility] 6.4 (H) 03/06/2020 01:30 PM HEMOGLOBIN A1C - [facility] 5.9 (H) 07/19/2019 04:10 PM HEMOGLOBIN A1C - [facility] 5.5 03/01/2019 10:59 AM Review of Systems: Constitutional ROS: No change in weight, No fevers, sweats, or chills, and +generalized weakness and deconditioning Eye ROS: No eye pain, redness, discharge Ear ROS: No ear pain, No drainage, No tinnitus or vertigo, and No recent change in hearing Nose ROS: No history of frequent colds or sinusitis, No nasal stuffiness, No history of Hay Fever, and No significant epistaxis Mouth/Throat ROS: No bleeding gums, No thrush, or No sore throat Pulmonary ROS: No cough, sputum, or hemoptysis, No recent change in breathing, and +COPD and recentright lung pneumonia Cardiovascular ROS: No chest pain, No orthopnea, No paroxysmal nocturnal dyspnea, No palpitations, No syncope, and +PAF and Takotsubo cardiomyopathy with improved EF Gastrointestinal ROS: No abdominal pain, No significant change in appetite, No hematemesis, No abdominal bloating or early satiety, and +recurrent C diff Genito-Urinary Female ROS: No dysuria and No frequency Musculoskeletal/Extremities ROS: +rheumatoid arthritis Hematologic/Lymphatic ROS: No abnormal bleeding, No chills, No bruising, and +anemia Skin/Integumentary ROS: No rash Neurologic ROS: No headaches and No seizures Endocrine ROS: +type 2 diabetes Psychiatric ROS: +depression ADL skills: dependent Ambulates with walker OBJECTIVE: PHYSICAL EXAM: I reviewed the most recent facilities vitals. Refer to vital signs flowsheet in detention chart.General: alert, no distress, and chronically ill appearing female resting in bed Head: Normocephalic, No masses, lesions, tenderness or abnormalities Eye Exam: PERRLA, extraocular movements intact, conjunctiva are pink and non- injected, sclera clear Ears: External ears normal Nose: no mucosal erythema, no mucosal edema, no purulent discharge Oropharynx: no exudate, no erythema, lips, buccal mucosa, and tongue normal, and mucous membranes are moist Neck: supple, no adenopathy, no bruits Heart: regular rate & rhythm, no gallops, and +systolic murmur Lungs: chest symmetric with normal AP diameter, no chest deformities noted, no chest wall tenderness, decreased breath sounds Abdomen: abdomen soft, non-tender, normal bowel sounds, no masses or organomegaly, and no rebound or guarding Extremities: no edema, no clubbing, no cyanosis, +rheumatic deformities of hands Neuro Exam: alert & oriented x 3 with fluent speech, no focal motor/sensory deficits ASSESSMENT: Pneumonia of right lower lobe due to infectious organism (Primary) Takotsubo cardiomyopathy Type 2 diabetes mellitus with peripheral neuropathy (HCC) Liver mass, right lobe Moderate protein-calorie malnutrition (HCC) Type 2 diabetes mellitus with stage 3b chronic kidney disease, without long-term current use of insulin (HCC) Paroxysmal atrial fibrillation (HCC) Cerebrovascular disease, arteriosclerotic, post-stroke 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 Continue present medication(s): Referral(s) to: Nephrology for follow-up of hyponatremia and ANDRESSA on CKD. Referral to GI regarding recurrent C diff (now off of Vancomycin) and right lobe liver mass Schedule labs: CBC w/diff, BMP 09/25/23 Discussed above with patient and 2. Admission orders, medications, labs, hospital records and care plan reviewed. 3. Associate Financial Planner consult, Physical Therapy, Occupational Therapy, and Speech Therapy ordered. 4. Care plan reviewed. 5. Advance Directives were discussed: The patient is a DNR 6. Senior Care Home Treatment Given: n/a Electronically signed by: Ashwini Moran MD I spent a total of 50 minutes coordinating, documenting, and providing care for this patient excluding time spent in the performance of separately billed services or time spent by another provider/QHP. documented in this encounter Plan of Treatment Upcoming Encounters Date Type Department Care Team (Late st Contact Info) Description 01/29/2024 3:10 PM EDT Office Visit Family Medicine [address] [phone] [place] [address] Health Maintenance Due [...] Additional history exists CKD HGB USE SMARTSET 85728 07/10/202407/10, 07/10/2023, 05/27/2023, Additional history exists CKD PHOS USE SMARTSET 21090 07/10/202406/15, 04/15/2022, 03/12/2021, Additional history exists O2 ASSESSMENT COMPLETED IN PAST YEAR FOR COPD 07/10/2024 07/10/2023 DXA Scan 05/04/2025 05/04/2023, 03/14, 01/18/2013 Pneumococcal Vaccine: 65+ Years Completed 03/05/2017, 06/28/2015, 11/25/2011, Additional history exists Fecal Occult Blood Test Discontinued 09/23/19, 08/06/2018, 02/21/2004 VITAMIN D LEVEL ONCE IN A LIFETIME-USE SMARTSET# [id number] Completed 10/18/2020, 03/06/2020, 03/26/2018, Additional history exists [...] this encounter Medical Devices Implanted Type Area Gun Mechanic Device Identifier Shelf Expiration Date Model / Serial / Lot Lens 19.5 Sn60wf - [id number] - [id number] Implanted:Qty: 1 on 11/21/2016 by Faraz Jeffers MD at OR [facility] Left: Eye ARNOLD : SURGICAL 05/14/2021 SN60WF.1 95 / [id number] / Lens 19.5 Sn60wf - [id number] - [id number] Implanted:Qty: 1 on 04/22/2019 by Faraz Jeffers MD at OR [facility] Right: Eye ARNOLD : SURGICAL 07/14/2023 SN60WF.195 / [id number] / documented as of this encounter Visit Diagnoses Diagnosis Pneumonia of right lower lobe due to infectious organism- Primary Takotsubo cardiomyopathy Takotsubo syndrome Type 2 diabetes mellitus with peripheral neuropathy (HCC) Liver mass, right lobe Unspecified disorder of liver Moderate protein-calorie malnutrition (HCC) Malnutrition of moderate degree Type 2 diabetes mellitus with stage 3b chronic kidney disease, without long-term current use of insulin (HCC) Paroxysmal atrial fibrillation (HCC) Atrial fibrillation Cerebrovascular disease, arteriosclerotic, post-stroke Cerebral atherosclerosis 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 Care Teams Staff Electronic Warfare Officer Relationship Specialty Start Date End Date Leni Moyer DO [address] [place] [address] [place] [phone] PCP - General Internal Medicine 11/18/17 documented as of this encounter
--- OUTSIDE RECORDS SUMMARY | 2023-09-29 20:13 | External Medical Summary | Summary of Care ---
Author Name Unknown Organization [facility] Address [address] [place] [address] Phone [phone] Care Team Providers Care Veterinarian Laboratory Animal Care Name Role Phone Leni Moyer DO Primary Care Provider Encounter Details Date Type Department Care Team (Late st Contact Info) Description 09/25/2023 Orders Only Lab Mobile Phlebotomy [facility] [address] [place] [address] Ashwini Moran MD [address] [place] [address] [place] [address] Thrombocytopenia (HCC)*; HTN, goal below 140/90 Allergies Active Allergy Reactions Criticality Noted Date Comments Ciprofloxacin Bleeding High 05/27/2023 And rash Influenza Virus Vac Live Quad High 06/12/2021 2 years ago, flown to [facility] Methotrexate 08/19/2013 pneumonitis Other Allergy (See Comments) Rash 012 Insecticides cause breathing problems Penicillins Hives 02/01/2001 Ranitidine Rash 07/14/2001 documented as of this encounter (statuses as of 09/25/2023) Medications Medication Sig Dispensed Refills Start Date End Date Status ONETOUCH ULTRASOFT LANCETS MISC Check BS twice daily. E 11.9 1 Box Dosing Unit 11 12/15/2016 Active Nystatin (NYSTOP) 429973 UNIT/GM powderIndications:Cu taneous candidiasis APPLY TOPICALLY TO AFFECTED AREA 3 TIMES A DAY. SPRINKLE OVER AFFECTED AREA. 15 g 2 12/15/2016 Active Blood Glucose Monitoring Suppl (Totally Interactive Weather ULTRA SYSTEM) w/Device KIT Twice daily. Dx E 11.9 1 Kit 0 12/25/2017 Active Glucose Blood (ONETOUCH ULTRA BLUE) STRPIndications:Type 2 diabetes mellitus with hemoglobin A1c goal of less than 7.0% ([facility]) Check BS twice daily E11.9 100 [...] Acid 1 MG Oral TabletIndications:Rh eumatoid arthritis ([facility]) Take 1 Tablet by mouth daily. 100 [...] 04/02/2022 History of [place] (myocardial infarction) 04/02/2022 Cerebrovascular disease, arteriosclerotic, post- [...] mg daily Coronary artery disease invo lving [place] coronary artery of [place] heart without angina pectoris 11/03/2019 Last Assessment [...] ICD-10 update of inactive term LOC PRIM [id number] 04/12/2003 08/0 10/2016 PURE HYPERCHOLESTEROLEM 12/27/200107/16 Asthma [...] ml/min) 05/27/2019 CAD (coronary artery disease ), [place] coronary artery 02/24/2022 Overview: duplicate documented as [...] Care Team (Late st Contact Info) Description 09/25/2023 8:10 AM EST Laboratory Lab Mobile [address]lebotomy [address] [place] [address] Arrived 01/29/2024 3:10 PM EDT Office Visit Family Medicine [address] [place] [phone] Leni M[address] [place] [address] Scheduled Orders Name Type Priority Associated Diagnoses Orde r Schedule BASIC METABOLIC PANEL Lab Routine Thrombocytopenia (HCC) HTN, goal below 140/90 Expected: 09/26/2023, Expires: 09/25/2024 CBC WITH WBC DIFFERENTIAL Lab Routine Thrombocytopenia (HCC) HTN, goal below 140/90 Expected: 09/26/2023, Expires: 09/25/2024 Health Maintenance Due Date Last Done Comments [...] 0403/2023, 06/10/2022, Additional history exists Albumin/Creatinine Ratio 04/08/2024 023, 04/15/2022, 06/12/2021, Additional history exists Depression Screening 04/08/2024 04/08/2023 Diabetic Foot Exam 04/08/2024 04/08/2023, 0 06/10/2022, 06/12/2021, Additional history exists CKD HGB USE SMARTSET 20147 07/10/202407/10, 07/10/2023, 05/27/2023, Additional history exists CKD PHOS USE SMARTSET 33697 07/10/202406/15, 04/15/2022, 03/12/2021, Additional history exists O2 ASSESSMENT COMPLETED IN PAST YEAR FOR COPD 07/10/2024 07/10/2023 DXA Scan 05/04/2025 05/04/2023, 03/14, 01/18/2013 Pneumococcal Vaccine: 65+ Years Completed 03/05/2017, 06/28/2015, 11/25/2011, Additional history exists Fecal Occult Blood Test Discontinued 09/23/19, 08/06/2018, 02/21/2004 VITAMIN D LEVEL ONCE IN A LIFETIME-USE SMARTSET# 20548 Completed 10/18/2020, 03/06/2020, 03/26/2018, Additional history exists [...] this encounter Medical Devices Implanted Type Area Director Of Corporate Sponsorships Device Identifier Shelf Expiration Date Model / Serial / Lot Lens 19.5 Sn60wf - [id number] - [id number] Implanted:Qty: 1 on 11/21/2016 by Faraz Jeffers MD at OR [facility] Left: Eye RAMÓN : SURGICAL 05/14/2021 SN60WF.1 95 / [id number] / Lens 19.5 Sn60wf - [id number] - [id number] Implanted:Qty: 1 on 04/22/2019 by Faraz Jeffers MD at OR [facility] Right: Eye RAMÓN : SURGICAL 07/14/2023 SN60WF.195 / [id number] / documented as of this encounter Visit Diagnoses Diagnosis Thrombocytopenia (HCC)- Primary Thrombocytopenia, unspecified HTN, goal below 140/90 Unspecified essential hypertension documented in this encounter Advance Directives Latest [...] and were consensually agreed upon. Care Teams Veterinarian Laboratory Animal Care Relationship Specialty Start Date End Date Leni Moyer DO [address] [place] [address] [place] [phone] PCP - General Internal Medicine 11/18/17 documented as of this encounter
--- OUTSIDE RECORDS SUMMARY | 2023-09-29 20:13 | External Medical Summary ---
Author Name Unknown Address Unknown Organization [id number]:LABORATORY [facility] [address] [place] [id number] Laboratory Report Ordering Provider Test Date Status SAMRA ALVAREZ 09/25/2023 05:48:00 Final Observation Date Value Abnormality Reference (Units ) Status BUN 09/25/2023 05:48:00 26 Above high normal 6-20 (mg/dL) Final Creatinine 09/25/2023 05:48:00 1.0 0.5-1.0 (mg/dL) Final Glomerular filtration rate/1.73 sq M.predicted [Volume Rate/Area] in Serum, Plasma or Blood by Creatinine-based formula (CKD-EPI) 09/25/2023 05:48:00 58 Below low normal >=60 (mL/min) Final eGFR is calculated based on the CKD-EPI 2020 equation SODIUM 09/25/2023 05:48:00 135 135-146 (m mol/L) Final Potassium 09/25/2023 05:48:00 3.9 3.5-5.1 (m mol/L) Final Cl 09/25/2023 05:48:00 98 98-107 (mm ol/L) Final CO2 09/25/2023 05:48:00 27 22-32 (mmo l/L) Final Anion gap 09/25/2023 05:48:00 10 7-15 (mmol /L) Final Glucose 09/25/2023 05:48:00 98 70-120 (mg /dL) Final Calcium 09/25/2023 05:48:00 8.7 8.4-10.2 ( mg/dL) Final Performing Location [facility] [address] [place] [id number]
--- OUTSIDE RECORDS SUMMARY | 2023-09-29 20:13 | External Medical Summary ---
Author Name Unknown Address Unknown Organization [id number]:[facility] [place] - [address] [place] [id number] Laboratory Report Ordering Provider Test Date Status SAMRA ALVAREZ 09/25/2023 05:48:00 Final Observation Date Value Abnormality Reference (Units ) Status Pathologist review of results 09/25/2023 05:48:00 Results reviewed by pathologist. Final Performing Location LABORATORY [facility] - [address] [place] [address]
--- OUTSIDE RECORDS SUMMARY | 2023-09-29 20:14 | External Medical Summary | Summary of Care ---
Author Name Unknown Organization [facility] Address [address] [facility] [place] [address] Phone [phone] Care Team Providers Care Pesticide Use Medical Coordinator Name Role Phone Leni Moyer Primary Care Provider [phone] Encounter Details Date Type Department Care Team (Late st Contact Info) Description 09/08/2023 Result Scan Unspecified Department <No scans attached> Allergies Active Allergy Reactions Criticality Noted Date Comments Ciprofloxacin Bleeding High 05/27/2023 And rash Influenza Virus Vac Live Quad High 06/12/2021 2 years ago, flown to [facility] Methotrexate 08/19/2013 pneumonitis Other Allergy (See Comments) Rash 012 Insecticides cause breathing problems Penicillins Hives 02/01/2001 Ranitidine Rash 07/14/2001 documented as of this encounter (statuses as of 2023) Medications Medication Sig Dispensed Refills Start Date End Date Status ONETOUCH ULTRASOFT LANCETS MISC Check BS twice daily. E 11.9 1 Box Dosing Unit 11 12/15/2016 Active Nystatin (NYSTOP) 954414 UNIT/GM powderIndications:Cu taneous candidiasis APPLY TOPICALLY TO AFFECTED AREA 3 TIMES A DAY. SPRINKLE OVER AFFECTED AREA. 15 g 2 12/15/2016 Active Blood Glucose Monitoring Suppl (ONETOUCH ULTRA SYSTEM) w/Device KIT Twice daily. Dx E 11.9 1 Kit 0 12/25/2017 Active Glucose Blood (ONETOUCH ULTRA BLUE) STRPIndications:Type 2 diabetes mellitus with hemoglobin A1c goal of less than 7.0% ([facility]) Check BS twice daily E11.9 100 [...] as of this encounter (statuses as of 2023) Active Problems Problem Noted Date Diagnosed Date FUO (fever of unknown origin) 07/10/2023 Polyneuropathy associated with underlying diseas e 10/15/2022 Paroxysmal atrial fibrillation 10/15/2022 History of 2019 novel coronavirus disease (COVID -19) 09/18/2022 DNR (do not resuscitate) 09/17/2022 H/O Clostridium difficile infection 2022 Primary open angle glaucoma (POAG) of both eyes, mild stage 04/02/2022 History of [place] (myocardial infarction) 04/02/2022 Neutropenia 04/02/2022 Last Assessment [...] osteoporosis wit hout current pathological fracture 06/08/2020 half-way current use of therapeutic drug 2019 Chronic right-sided heart failure 11/03/2019 Major depressive disorder, r ecurrent episode, in partial remission 11/03/2019 Last Assessment & Plan: Managed well with Cymbalta 60 mg daily Gastroesophageal reflux disease without esophagi tis 11/03/2019 Last Assessment & Plan: Managed with pantoprazole 40 mg daily Coronary artery disease invo lving [place] coronary artery of [place] heart without angina pectoris 11/03/2019 Last Assessment [...] as of this encounter (statuses as of 2023) Resolved Problems Problem Noted Date Diagnosed Date [...] ICD-10 update of inactive term LOC PRIM [id number] 04/12/2003 0810/2016 PURE HYPERCHOLESTEROLEM 12/27/200107/16 Asthma with [...] moderate 12/05/2014 CAD (coronary artery disease ), [place] coronary artery 02/24/2022 Overview: duplicate documented as of this encounter (statuses as of 2023) Immunizations Name Administration Dates Next Due COVID-19 [...] 3:10 PM EDT Office Visit Family Medicine [address] [place] [address] [place] [address] Health Maintenance Due Date Last Done Comments [...] Additional history exists CKD HGB USE SMARTSET 17586 07/10/202407/10, 07/10/2023, 05/27/2023, Additional history exists CKD PHOS USE SMARTSET 90280 07/10/202406/15, 04/15/2022, 03/12/2021, Additional history exists O2 ASSESSMENT COMPLETED IN PAST YEAR FOR COPD 07/10/2024 07/10/2023 DXA Scan 05/04/2025 05/04/2023, 03/14, 01/18/2013 Pneumococcal Vaccine: 65+ Years Completed 03/05/2017, 06/28/2015, 11/25/2011, Additional history exists Fecal Occult Blood Test Discontinued 09/23/19, 08/06/2018, 02/21/2004 VITAMIN D LEVEL ONCE IN A LIFETIME-USE SMARTSET# 76732 Completed 10/18/2020, 03/06/2020, 03/26/2018, Additional history exists [...] this encounter Medical Devices Implanted Type Area Film Splicer Device Identifier Shelf Expiration Date Model / Serial / Lot Lens 19.5 Sn60wf - [id number] - [id number] Implanted:Qty: 1 on 11/21/2016 by Faraz Jeffers MD at OR [facility] Left: Eye RAMÓN : SURGICAL 05/14/2021 SN60WF.1 95 / [id number] / Lens 19.5 Sn60wf - [id number] - [id number] Implanted:Qty: 1 on 04/22/2019 by Faraz Jeffers MD at OR [facility] Right: Eye RAMÓN : SURGICAL 07/14/2023 SN60WF.195 / [id number] / documented as of this encounter Procedures Procedure Name Priority Date/Time Associated Diagnosis Comments PROCEDURE SCANNED RESULT 09/08/2023 documented in this encounter Results * PROCEDURE SCANNED RESULT (09/08/2023) 09/08/2023 No Physician Data Unknown SURGERY documented in this encounter Advance Directives Latest [...] and were consensually agreed upon. Care Teams Pesticide Use Medical Coordinator Relationship Specialty Start Date End Date Leni Moyer DO [address] [place] [address] [place] [address] PCP - General Internal Medicine 11/18/17 documented as of this encounter
--- OUTSIDE RECORDS SUMMARY | 2023-09-29 20:14 | External Medical Summary | Summary of Care ---
Author Name Unknown Organization [facility] Address [address] [facility] [place] [address] Phone [phone] Care Team Providers Care Vegetable Washer Name Role Phone Leni Moyer DO Primary Care Provider Encounter Details Date Type Department Care Team (Late st Contact Info) Description 09/15/2023 Result Scan Unspecified Department Goyo Quintero MD [address] [place] [address] <No scans attached> Allergies Active Allergy Reactions Criticality Noted Date Comments Ciprofloxacin Bleeding High 05/27/2023 And rash Influenza Virus Vac Live Quad High 06/12/2021 2 years ago, flown to [facility] Methotrexate 08/19/2013 pneumonitis Other Allergy (See Comments) Rash 012 Insecticides cause breathing problems Penicillins Hives 02/01/2001 Ranitidine Rash 07/14/2001 documented as of this encounter (statuses as of 09/17/2023) Medications Medication Sig Dispensed Refills Start Date End Date Status ONETOUCH ULTRASOFT LANCETS MISC Check BS twice daily. E 11.9 1 Box Dosing Unit 11 12/15/2016 Active Nystatin (NYSTOP) 410738 UNIT/GM powderIndications:Cu taneous candidiasis APPLY TOPICALLY TO AFFECTED AREA 3 TIMES A DAY. SPRINKLE OVER AFFECTED AREA. 15 g 2 12/15/2016 Active Blood Glucose Monitoring Suppl (ONETOUCH ULTRA SYSTEM) w/Device KIT Twice daily. Dx E 11.9 1 Kit 0 12/25/2017 Active Glucose Blood (ONETOUCH ULTRA BLUE) STRPIndications:Type 2 diabetes mellitus with hemoglobin A1c goal of less than 7.0% ([facility]) Check BS twice daily E11.9 100 Strip [...] as of this encounter (statuses as of 09/17/2023) Active Problems Problem Noted Date Diagnosed Date FUO (fever of unknown origin) 07/10/2023 Polyneuropathy associated with underlying diseas e 10/15/2022 Paroxysmal atrial fibrillation 10/15/2022 History of 2019 novel coronavirus disease (COVID -19) 09/18/2022 DNR (do not resuscitate) 09/17/2022 H/O Clostridium difficile infection 2022 Primary open angle glaucoma (POAG) of both eyes, mild stage 04/02/2022 History of [place] (myocardial infarction) 04/02/2022 Neutropenia 04/02/2022 Last Assessment [...] osteoporosis wit hout current pathological fracture 06/08/2020 [facility] current use of therapeutic drug 2019 Chronic right-sided heart failure 11/03/2019 Major depressive disorder, r ecurrent episode, in partial remission 11/03/2019 Last Assessment & Plan: Managed well with Cymbalta 60 mg daily Gastroesophageal reflux disease without esophagi tis 11/03/2019 Last Assessment & Plan: Managed with pantoprazole 40 mg daily Coronary artery disease invo lving [place] coronary artery of [place] heart without angina pectoris 11/03/2019 Last Assessment [...] as of this encounter (statuses as of 09/17/2023) Resolved Problems Problem Noted Date Diagnosed Date [...] ICD-10 update of inactive term LOC PRIM [id number] 04/12/200310/2016 PURE HYPERCHOLESTEROLEM 12/27/200107/16 Asthma with severity to be determined 12/07/2007 Overview: ICD-10 update of inactive term OBESITY, UNSPECIFIED 010 Overview: Per Obesity Taxonomy Rotator cuff rupture 019 BENIGN HYPERTENSION 07/20/20 Overview: Modified per HTN Taxonomy. Esophageal reflux [...] moderate 12/05/2014 CAD (coronary artery disease ), [place] coronary artery 02/24/2022 Overview: duplicate documented as of this encounter (statuses as of 09/17/2023) Immunizations Name Administration Dates Next Due COVID-19 mRNA, LNP-s, No Pre serve, 2-Dose Series (Moderna) 05/06/2021,01/31/2021,01/02/2021 COVID-19, LNP-s, No Preserve , Pete-sucrose, Ages 12+ (Integromics) 03/26/2022 COVID-19, mRNA, LNP-s, PF, B ooster, [...] PM EDT Office Visit Family Medicine [address] [phone] [place] [address] Health Maintenance Due Date Last Done Comments [...] Additional history exists CKD HGB USE SMARTSET 60333 07/10/202407/10, 07/10/2023, 05/27/2023, Additional history exists CKD PHOS USE SMARTSET 63953 07/10/202406/15, 04/15/2022, 03/12/2021, Additional history exists O2 ASSESSMENT COMPLETED IN PAST YEAR FOR COPD 07/10/2024 07/10/2023 DXA Scan 05/04/2025 05/04/2023, 03/14, 01/18/2013 Pneumococcal Vaccine: 65+ Years Completed 03/05/2017, 06/28/2015, 11/25/2011, Additional history exists Fecal Occult Blood Test Discontinued 09/23/19, 08/06/2018, 02/21/2004 VITAMIN D LEVEL ONCE IN A LIFETIME-USE SMARTSET# 99733 Completed 10/18/2020, 03/06/2020, 03/26/2018, Additional history exists [...] this encounter Medical Devices Implanted Type Area Nonprofit Fundraiser Device Identifier Shelf Expiration Date Model / Serial / Lot Lens 19.5 Sn60wf - [id number] - [id number] Implanted:Qty: 1 on 11/21/2016 by Faraz Jeffers MD at OR [facility] Left: Eye RAMÓN : SURGICAL 05/14/2021 SN60WF.1 95 / [id number] / Lens 19.5 Sn60wf - [id number] - [id number] Implanted:Qty: 1 on 04/22/2019 by Faraz Jeffers MD at OR [facility] Right: Eye RAMÓN : SURGICAL 07/14/2023 SN60WF.195 / [id number] / documented as of this encounter Procedures Procedure Name Priority Date/Time Associated Diagnosis Comments ECHOCARDIOLOGY SCANNED RESULT 09/15/2023 documented in this encounter Results * ECHOCARDIOLOGY SCANNED RESULT (09/15/2023) 09/15/2023 Goyo Quintero MD ECHOCARDIOLOGY documented in this encounter Advance Directives Latest [...] and were consensually agreed upon. Care Teams Vegetable Washer Relationship Specialty Start Date End Date Leni Moyer DO [address] [place] [address] [place] [phone] PCP - General Internal Medicine 11/18/17 documented as of this encounter
[2023-09-29] MEDS ORDERED: SILVER SULFADIAZINE 1% CR 50 GM JAR TOP PRN (21:31)
[2023-09-29] MEDS ORDERED: ALBUTEROL HFA 8 GM INHALER INH PRN (21:31)
[2023-09-29] MEDS ORDERED: ALBUTEROL 0.083% NEBU SOLN 3 ML VIAL INH PRN (21:31)
--- OUTSIDE RECORDS SUMMARY | 2023-09-29 21:41 | External Medical Summary | Summary of Care ---
Author Name Unknown Organization [facility] Address [address] [facility] [place] [address] Phone [phone] Care Team Providers Care Rebar Worker Name Role Phone Leni Moyer Primary Care Provider [phone] Reason for Visit * Reason Onset Date Comments Skilled Visit 09/29/2023 Encounter Details Date Type Department Care Team (Latest Contact Info) Description 09/29/2023 9:00 AM EST [facility] Visit [facility] [address] [place] [address] Ming Mccarthy PA-C [address] [place] [address] Pneumonia of right lower lobe due to infectious organism*; Takotsubo cardiomyopathy; Hypertensive heart and kidney disease with chronic right heart failure and stage 3b chronic kidney disease (HCC); Type 2 diabetes mellitus without complication, without long-term current use of insulin ([facility]); Neutropenia, unspecified type ([facility]) Allergies Active Allergy Reactions Criticality Noted Date [...] Date End Date Status ONETOUCH ULTRASOFT LANCETS [facility] [place] BS twice daily. E 11.9 1 Box Dosing Unit 11 12/15/2016 Active Nystatin (NYSTOP) 806680 UNIT/GM powderIndications:C utaneous candidiasis APPLY TOPICALLY TO AFFECTED AREA 3 TIMES A DAY. SPRINKLE OVER AFFECTED AREA. 15 g 2 12/15/2016 Active Blood Glucose Monitoring Suppl (ColibríUCH ULTRA SYSTEM) w/Device KIT Twice daily. Dx E 11.9 1 Kit 0 12/25/2017 Active Glucose Blood (ColibríUCH ULTRA BLUE) STRPIndications:Typ e 2 diabetes mellitus with hemoglobin A1c goal of less than 7.0% ([facility]) Check BS twice daily E11.9 100 [...] both eyes, mild stage 04/02/2022 History of SD (myocardial infarction) 04/02/2022 Cerebrovascular disease, arteriosclerotic, post- [...] wit hout current pathological fracture 06/08/2020 intermediate frame tender current use of therapeutic drug 2019 Chronic right-sided heart failure 11/03/2019 Major depressive disorder, r ecurrent episode, in partial remission 11/03/2019 Last Assessment & Plan: Managed well with Cymbalta 60 mg daily Gastroesophageal reflux disease without esophagi tis 11/03/2019 Last Assessment & Plan: Managed with pantoprazole 40 mg daily Coronary artery disease invo lving north[place] coronary artery of north[place] heart without angina pectoris 11/03/2019 Last Assessment [...] ICD-10 update of inactive term LOC PRIM [id number] 04/12/200310/2016 PURE HYPERCHOLESTEROLEM 12/27/200107/16 Asthma with severity [...] ml/min) 05/27/2019 CAD (coronary artery disease ), northway coronary artery 02/24/2022 Overview: duplicate documented as of this encounter (statuses as of 09/29/2023) Immunizations Name Administration Dates Next Due COVID-19 mRNA, LNP-s, No Pre serve, 2-Dose Series (Moderna) 05/06/2021,01/31/2021,01/02/2021 COVID-19, LNP-s, No Preserve , Pete-sucrose, Ages 12+ ([place]) 03/26/2022 COVID-19, mRNA, LNP-s, PF, B ooster, [...] as of this encounter Progress Notes * Ming Mccarthy PA-C - 09/29/2023 11:53 AM EST Name: eBlem Rodriguez Date of :1945 TRANSITION EVENT: Type: Skilled visit Date: September 29 Code Status: No Code This note pertains to care provided at [facility]. Please see facility medical record for original note. This note is not to be edited or addended in [employer]. Editing or addending needs to occur in the facilities medical record. Subjective: Belem Rodriguez is a 78 year old female. Patient being seen for skilled visit Chief Complaint Patient presents with Skilled Visit HPI: pt here for rehabilitation following [facility] admission for RLL pneumonia, Takatsubo Cardiomyopathy and non STEMI.. no chest pains, no dyspnea at rest. No chills or fever. Still easily fatigued. Vital signs stable. Tolerating Therapy. Pt had CBC drawn in followup and showed: CBC Results: Results for orders placed or [...] K/uL MPV 8.7 6.6 - 11.1 fL Pt noted to have neutropenia. Pt had similar CBC back in June 2023 but not as severe. Her CBC's drawn at last [facility] admission showed WBC counts either normal or elevated with normal or high neutrophils. Pt was being treated forRLL pneumonia at that time. Pt is on Hydroxychloroquine for her RA. Basic Panel Results: Results for orders placed [...] AM POTASSIUM-OUTSIDE LAB 3.8 02/13/2017 12:00 AM Patient Active Problem List Diagnosis Code Other allergic rhinitis J30.89 Other specified glaucoma H40.89 LUMB-LUMBOSAC DISC DEGEN M51.37 Carpal tunnel syndrome G56.00 Slow transit constipation K59.01 Knee joint replacement status Z96.659 Gouty arthropathy M10.9 DYSLIPIDEMIA, GOAL LDL BELOW 100 E78.5 Vitamin D deficiency E55.9 COPD, moderate ([facility]) J44.9 Chronic drug-induced interstitial lung disorders ([facility]) J70.3 B12 deficiency E53.8 Degenerative cervical spinal stenosis M48.02 Peripheral neuropathy G62.9 Abnormality of gait R26.9 Thiamine deficiency E51.9 Asthma, mild persistent J45.30 Rheumatoid arthritis involving multiple sites with positive rheumatoid factor ([facility]) M05.79 Adjustment disorder with anxious mood F43.22 Essential hypertension with goal blood pressure less than 140/90 I10 Encounter for long-term (current) use of medications Z79.899 Generalized osteoarthritis of multiple sites M15.9 Impingement syndrome, shoulder, left M75.42 Esophageal dysphagia R13.19 Type 2 diabetes mellitus with peripheral neuropathy ([facility]) E11.42 History of rotator cuff tear Z87.39 Chronic right-sided heart failure ([facility]) I50.812 Major depressive disorder, recurrent episode, in partial remission ([facility]) F33.41 Gastroesophageal reflux disease without esophagitis K21.9 Coronary artery disease involving northway coronary artery of northway heart without angina pectoris I25.10 intermediate frame tender current use of therapeutic drug Z79.899 Age-related osteoporosis without current pathological fracture M81.0 Type 2 diabetes mellitus with hemoglobin A1c goal of less than 8.0% ([facility]) E11.9 Moderate protein-calorie malnutrition ([facility]) E44.0 Type 2 diabetes mellitus with stage 3b chronic kidney disease, without long-term current use of insulin ([facility]) E11.22, N18.32 Hypertensive heart and kidney disease with chronic right heart failure and stage 3b chronic kidney disease ([facility]) I13.0, I50.812, N18.32 Primary open angle glaucoma (POAG) of both eyes, mild stage H40.1131 History of SD (myocardial infarction) I25.2 Cerebrovascular disease, arteriosclerotic, post-stroke I67.2, Z86.73 Mild aortic stenosis I35.0 H/O Clostridium difficile infection Z86.19 DNR (do not resuscitate) Z66 History of 2019 novel coronavirus disease (COVID-19) Z86.16 Polyneuropathy associated with underlying disease (HCC) G63 Paroxysmal atrial fibrillation (HCC) I48.0 FUO (fever of unknown origin) R50.9 Non-STEMI (non-ST elevated myocardial infarction) (HCC) I21.4 Pneumonia of right lower lobe due [...] difficile diarrhea 03/28/2019 CAD (coronary artery disease), northway coronary artery 08/10/2013 LAD disease Carpal tunnel [...] disease, chronic, stage III (GFR 30-59 ml/min) ([facility]) Kidney disease, chronic, stage III (GFR 30-59 ml/min) ([facility]) Knee joint replacement status 11/01/2007 left knee Migraine without aura Obesity, BMI not known Open wound of upper limb 11/05/2004 Other specified glaucoma Peripheral neuropathy 08/12/2013 Persistent insomnia 03/29/2013 Prediabetes 06/17/2021 Pressure ulcer of sacral region, unstageable ([facility]) 10/15/2022 Primary localized osteoarthrosis of shoulder region 09/02/2006 Primary localized osteoarthrosis, lower leg 04/12/2003 Primary osteoarthritis of right shoulder 10/04/2015 Pseudophakia OU Rheumatoid arthritis involving multiple sites with positive rheumatoid factor ([facility]) 03/05/2016 Rheumatoid arthritis(714.0) Rotator cuff rupture 10/16/1996 right shoulder Rupture of anterior cruciate ligament of right knee 06/21/2020 chronic Thiamine deficiency 08/15/2013 Type 2 diabetes mellitus with diabetic chronic kidney disease ([facility]) 04/03/2015 Type 2 diabetes mellitus with hemoglobin A1c goal of less than 8.0% ([facility]) 03/01/2019 Type 2 diabetes mellitus with peripheral neuropathy ([facility]) 05/10/2019 Vitamin D deficiency 04/11/2010 Past Surgical History: Procedure Laterality Date ARTHROPLASTY KNEE TOTAL 11/01/2007 left knee - Dr. Barnett BONE MARROW BIOPSY Left 07/11/2022 BONE MARROW BIOPSY (IES) performed by Kai Riggins MD at OR [facility] CARDIAC CATH SCANNED RESULT 08/10/2013 moderate disease LAD- Dr. Meza COLONOSCOPY, DIAGNOSTIC (RECTUM) 01/07/2017 diverticulosis, repeat 10 yrs/COLONOSCOPY FLEXIBLE PROXIMAL DIAGNOSTIC performed by Wood Menezes MD at [facility] COLONOSCOPY, DIAGNOSTIC (RECTUM) 02/14/2021 diverticulosis / COLONOSCOPY FLEXIBLE PROXIMAL DIAGNOSTIC performed by Vinny Starr MD at [facility] COLONOSCOPY, GI REFERRAL OP 12/2006 normal - Dr. Menezes EGD, FLEXIBLE, DIAGNOSTIC 12/1998 EGD, FLEXIBLE, DIAGNOSTIC 03/09/2019 acid reflux on bx/[facility] INJECT DX/THER SUBSTANCE INTERLAMINAR LUMBAR/SACRAL W IMAGE GUIDE 12/17/2017 INJECTION SPINE LUMBAR OR SACRAL performed by Andrea Mendoza, DO at OR [facility] LAPAROSCOPY; CHOLECYSTECTOMY 11/13/2019 REMOVAL OF OVARY/OVIDUCT(S) ovarian cyst - unilateral REMOVE CATARACT, INSERT LENS PROSTH Left 11/21/2016 EXTRACAPSULAR CATARACT REMOVAL WITH INTRAOCULAR LENS performed by Faraz Jeffers MD at [facility] REMOVE CATARACT, INSERT LENS PROSTH 04/22/2019 OD Arnold SN60WF 19.5 REMOVE CATARACT, INSERT LENS PROSTH Right 04/22/2019 EXTRACAPSULAR CATARACT REMOVAL WITH INTRAOCULAR LENS performed by Faraz Jeffers MD at OR [facility] REPAIR ARM TENDON/MUSCLE 11/03/1996 rotator cuff repair - right shoulder REVERSE TOTAL SHOULDER ARTHROPLASTY Right 12/21/2015 Dr. 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 Please refer to MAR in the facility's medical record forthe most up-to-date medication list as this cannot be edited in [employer]. Review of Systems: Constitutional ROS: No change in weight, + weakness, + fatigue and No fevers, sweats, or chills [...] vomiting, diarrhea, or constipation and No dysphagia Musculoskeletal/Extremities ROS: +RA Skin/Integumentary ROS: No rash and No itching Neurologic ROS: No headaches and No seizures Psychiatric ROS: No depression, No anxiety and No psychosis Sleep: No sleep disorders OBJECTIVE: PHYSICALEXAM: I reviewed the most recent facilities vitals. General: alert, no distress, frail Eye Exam: Conjunctiva are pink and non-injected, [...] are normal, no rashes or significant lesions Musculoskeletal: moves all extremities with good strength ASSESSMENT: Pneumonia of right lower lobe due to infectious organism (Primary) Clinically improved Completed antibiotic course Takotsubo cardiomyopathy Stable Continue Plavix 75mg daily and Crestor 20mg daily Hypertensive heart and kidney disease with chronic right heart failure and stage 3b chronic kidney disease (HCC) Stable BP and renal function Continue Toprol XL 50mg BID Type 2 diabetes mellitus without complication, without long-term current use of insulin (HCC) Stable glucoses Continue to monitor Neutropenia, unspecified type ([facility]) Reviewed CBC and pathology results Will stop Hydroxchloroquiine for now due to possible contributing factor in neutropenia Discussed neutrhopenia with pt at length (approximately 25 minutes of visit ) Will obtain hematology consult PLAN: Reviewed CBC, Pathology results. BMP, Lytes and Continue present medication(s):as ordered. Long-Term Home Treatment Given: as above Electronically signed by: Ming Mccarthy PA-C I GOT CALLED BACK TO REASSESS PT THIS AFTERNOON FOR SUDDEN ONSET OF SPIKING FEVER OF 102 F. PT STATES "I FEEL KIND OF WARM". HER ONLY COMPLAINT IS SOME LOWER BACK PAIN. NO CHILLS, BODY ACHES, DYSPNEA, CHEST PAINS, ABDOMINAL PAINS, NAUSEA, VOMITING, DIARRHEA (STOOLS ARE NOW FORMED. LAST STOOL FOR C.DIFF NEGATIVE) PT DENIES DYSURIA, FREQUENCY, URGENCY, HEMATURIA. O: COR: REGULAR RATE AND RHYTHM LUNGS: CLEAR THROUGHOUT ABDO: SOFT, NONTENDER NO GUARDING EXTREM:NO EDEMA, ERYTHEMA SKIN: WELL HEALING SACRAL WOUND. NO DRAINAGE OR SECONDARY INFECTION. BACK: NONTENDER. NO LESIONS, ERYTHEMA NOTED. A: FEVER ? CAUSE ? NEUTROPENIC FEVER RECENT RLL PNEUMONIA SIGNIFICANT NEUTROPENIA AND LEUKOPENIA HX OF RECURRENT C.DIFF P: REPEAT TEMPERATURE 101.8 F. WE ARE UNABLE TO PERFORM BLOOD CULTURES IN SNF FACILITY. WE DID PERFORM RESPIRATORY PANEL FOR COVID, FLU AND RSV JUST NOW DISCUSSED WITH DR CABRALES WAS PRESENT DURING MY DISCUSSION WITH PATIENT. DISCUSSED POSSIBLE SEVERITY OF NEUTROPENIC FEVER AND PROGNOSIS IF NOT TREATED. RECOMMENDED TRANSFER TO ED FOR FURTHER EVALUATION AND TREATMENT. PT AND EXPRESSED UNDERSTANDING AND CONSENT. TOTAL TIME SPENT WITH PATIENT, 70 MINUTES WITH OVER HALF TIME SPENT REVIEWING [facility] NOTES, LABS, STUDIES, AND PLANS OF CARE documented in this encounter Miscellaneous Notes * Addendum Note - Ming Mccarthy PA-C - 09/29/2023 1:32 PM ESTAddended by: MING MCCARTHY on: 09/29/2023 01:32 PM Modules accepted: Level of Service documented in this encounter Plan of Treatment Upcoming Encounters Date Type Department Care Team (Late st Contact Info) Description 10/20/2023 1:00 PM EST Office Visit Nephrology [address] [place] [address] Rachna Gonzalez MD [address] [facility] [place] [place] [address] 01/29/2024 3:10 PM EDT Office Visit Family Medicine [address] [place] [phone] [place] [address] Health Maintenance Due Date Last Done Comments [...] Additional history exists CKD PHOS USE SMARTSET 60174 07/10/202406/15, 04/15/2022, 03/12/2021, Additional history exists O2 ASSESSMENT COMPLETED IN PAST YEAR FOR COPD 07/10/2024 07/10/2023 CKD HGB USE SMARTSET 53300 09/25/202409/25, 09/25/2023, 07/10/2023, Additional history exists DXA Scan 05/04/2025 05/04/2023, 03/14, 01/18/2013 Pneumococcal Vaccine: 65+ Years Completed 03/05/2017, 06/28/2015, 11/25/2011, Additional history exists Fecal Occult Blood Test Discontinued 09/23/19, 08/06/2018, 02/21/2004 VITAMIN D LEVEL ONCE IN A LIFETIME-USE SMARTSET# [id number] Completed 10/18/2020, 03/06/2020, 03/26/2018, Additional history exists [...] this encounter Medical Devices Implanted Type Area School Bus Inspector Device Identifier Shelf Expiration Date Model / Serial / Lot Lens 19.5 Sn60w - [id number] - [id number] Implanted:Qty: 1 on 11/21/2016 by Faraz Jeffers MD at OR [facility] Left: Eye ARNOLD : SURGICAL 05/14/2021 SN60WF.1 95 / [id number] 2 / Lens 19.5 Sn60wf - [id number] - [id number] Implanted:Qty: 1 on 04/22/2019 by Faraz Jeffers MD at OR [facility] Right: Eye ARNOLD : SURGICAL 07/14/2023 SN60WF.195 / [id number] / documented as of this encounter [...] and were consensually agreed upon. Care Teams Rebar Worker Relationship Specialty Start Date End Date Leni Moyer DO [address] [place] [address] [place] [phone] PCP - General Internal Medicine 11/18/17 documented as of this encounter
--- OUTSIDE RECORDS SUMMARY | 2023-09-29 21:41 | External Medical Summary | Summary of Care ---
Author Name Unknown Organization [facility] Address [address] [facility] [place] [address] Phone [phone] Care Team Providers Care Yard Assistant Name Role Phone Leni Moyer Primary Care Provider Reason for Visit * Reason Comments Outpatient Testing Encounter Details Date Type Department Care Team (Late st Contact Info) Description 09/29/2023 1:40 PM EST Laboratory Laboratory [address] [place] [phone] , Specimen Drop Off [address] [place] [address] Fever Allergies Active Allergy Reactions Criticality Noted Date Comments Ciprofloxacin Bleeding High 05/27/2023 And rash Influenza Virus Vac Live Quad High 06/12/2021 2 years ago, flown to [facility] Methotrexate 08/19/2013 pneumonitis Other Allergy (See Comments) Rash 012 Insecticides cause breathing problems Penicillins Hives 02/01/2001 Ranitidine Rash 07/14/2001 documented as of this encounter (statuses as of 09/29/2023) Medications Medication Sig Dispensed Refills Start Date End Date Status ONETOUCH ULTRASOFT LANCETS MISC Check BS twice daily. E 11.9 1 Box Dosing Unit 11 12/15/2016 Active Nystatin (NYSTOP) 535911 UNIT/GM powderIndications:Cu taneous candidiasis APPLY TOPICALLY TO AFFECTED AREA 3 TIMES A DAY. SPRINKLE OVER AFFECTED AREA. 15 g 2 12/15/2016 Active Blood Glucose Monitoring Suppl (Whistlestop ULTRA SYSTEM) w/Device KIT Twice daily. Dx [...] Acid 1 MG Oral TabletIndications:Rh eumatoid arthritis ([facility]) Take 1 Tablet by mouth daily. 100 [...] osteoporosis wit hout current pathological fracture 06/08/2020 shelter current use of therapeutic drug 2019 Chronic right-sided heart failure 11/03/2019 Major depressive disorder, r ecurrent episode, in partial remission 11/03/2019 Last Assessment & Plan: Managed well with Cymbalta 60 mg daily Gastroesophageal reflux disease without esophagi tis 11/03/2019 Last Assessment & Plan: Managed with pantoprazole 40 mg daily Coronary artery disease invo lving [place] coronary artery of [place] heart without angina pectoris 11/03/2019 Last Assessment [...] not at goal 03/03/200707/11 Mixed dyslipidemia 03/03/2007 12 9 Overview: Per Lipid Taxonomy. Gastroparesis 01/11/2007 [...] ICD-10 update of inactive term LOC PRIM [id number] 04/12/2003 0810/2016 PURE HYPERCHOLESTEROLEM 12/27/200107/16 Asthma with [...] ml/min) 05/27/2019 CAD (coronary artery disease ), [place] coronary artery 02/24/2022 Overview: duplicate documented as [...] 10/20/2023 1:00 PM EST Office Visit Nephrology [address] [place] [address] [facility]na [facility] [address] [facility] [address] 01/29/2024 3:10 PM EDT Office Visit Family Medicine [address] [place] [phone] Leni Moyer[address] [place] [address] Pending Results Name Type Priority Associated Diagnoses Date /Time INFLUENZA A/B RSV SARS-COV2,PCR Lab Routine Fever 09/29/2023 1:47 PM EST Health Maintenance Due Date Last Done Comments [...] Additional history exists CKD PHOS USE SMARTSET 51390 07/10/202406/15, 04/15/2022, 03/12/2021, Additional history exists O2 ASSESSMENT COMPLETED IN PAST YEAR FOR COPD 07/10/2024 07/10/2023 CKD HGB USE SMARTSET 81277 09/25/202409/25, 09/25/2023, 07/10/2023, Additional history exists DXA Scan 05/04/2025 05/04/2023, 03/14, 01/18/2013 Pneumococcal Vaccine: 65+ Years Completed 03/05/2017, 06/28/2015, 11/25/2011, Additional history exists Fecal Occult Blood Test Discontinued 09/23/19, 08/06/2018, 02/21/2004 VITAMIN D LEVEL ONCE IN A LIFETIME-USE SMARTSET# [id number] Completed 10/18/2020, 03/06/2020, 03/26/2018, Additional history exists [...] this encounter Medical Devices Implanted Type Area Senior It Project Manager Device Identifier Shelf Expiration Date Model / Serial / Lot Lens 19.5 Sn60wf - [id number] - [id number] Implanted:Qty: 1 on 11/21/2016 by Faraz Jeffers MD at OR [facility] Left: Eye RAMÓN : SURGICAL 05/14/2021 SN60WF.1 95 / [id number] 2 / Lens 19.5 Sn60wf - [id number] - [id number] Implanted:Qty: 1 on 04/22/2019 by Faraz Jeffers MD at OR [facility] Right: Eye RAMÓN : SURGICAL 07/14/2023 SN60WF.195 / [id number] / documented as of this encounter Visit Diagnoses Diagnosis Fever Fever, unspecified documented in this encounter Advance Directives [...] and were consensually agreed upon. Care Teams Yard Assistant Relationship Specialty Start Date End Date Leni Moyer DO [address] [place] [address] [place] [phone] PCP - General Internal Medicine 11/18/17 documented as of this encounter
--- OUTSIDE RECORDS SUMMARY | 2023-09-29 21:42 | External Medical Summary | Summary of Care ---
Author Name Unknown Organization [facility] Address [address] [facility] [place] [address] Phone [phone] Care Team Providers Care Wall And Floor Tiler Name Role Phone Leni Moyer Primary Care Provider [phone] Reason for Visit * Reason Onset Date Comments Skilled Visit 09/29/2023 Encounter Details Date Type Department Care Team (Latest Contact Info) Description 09/29/2023 9:00 AM EST Alf Visit [facility] [address] [place] [address] Ming Mccarthy PA-C [address] [place] [address] Pneumonia of right lower lobe due to infectious organism*; Takotsubo cardiomyopathy; Hypertensive 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 E 11.9 1 Box Dosing Unit 11 12/15/2016 Active Nystatin (NYSTOP) 730560 UNIT/GM powderIndications:C utaneous candidiasis APPLY TOPICALLY TO AFFECTED AREA 3 TIMES A DAY. SPRINKLE OVER AFFECTED AREA. 15 g 2 12/15/2016 Active Blood Glucose Monitoring Suppl (Sensor Medical TechnologyUCH ULTRA SYSTEM) w/Device KIT Twice daily. Dx E 11.9 1 Kit 0 12/25/2017 Active Glucose Blood (Sensor Medical TechnologyUCH ULTRA BLUE) STRPIndications:Typ e 2 diabetes [...] 04/02/2022 History of HI (myocardial infarction) 04/02/2022 Cerebrovascular disease, arteriosclerotic, post- [...] osteoporosis wit hout current pathological fracture 06/08/2020 medical terminologist current use of therapeutic drug 2019 Chronic right-sided heart failure 11/03/2019 Major depressive disorder, r ecurrent episode, in partial remission 11/03/2019 Last Assessment & Plan: Managed well with Cymbalta 60 mg daily Gastroesophageal reflux disease without esophagi tis 11/03/2019 Last Assessment & Plan: Managed with pantoprazole 40 mg daily Coronary artery disease invo lving lime coronary artery of lime heart without angina pectoris 11/03/2019 Last Assessment [...] ICD-10 update of inactive term LOC PRIM [id number] 04/12/200310/2016 PURE HYPERCHOLESTEROLEM 12/27/200107/16 Asthma with severity [...] ml/min) 05/27/2019 CAD (coronary artery disease ), lime coronary artery 02/24/2022 Overview: duplicate documented as of this encounter (statuses as of 09/29/2023) Immunizations Name Administration Dates Next Due COVID-19 mRNA, LNP-s, No Pre serve, 2-Dose Series (Moderna) 05/06/2021,01/31/2021,01/02/2021 COVID-19, LNP-s, No Preserve , Pete-sucrose, Ages 12+ ([employer]) 03/26/2022 COVID-19, mRNA, LNP-s, PF, B ooster, [...] PA-C - 09/29/2023 11:53 AM EST Name: Belem Rodriguez Date of :1945 TRANSITION EVENT: Type: Skilled visit Date: September 29 Code Status: No Code This note pertains to care provided at [facility]. Please see facility medical record for original note. This note is not to be edited or addended in [employer]. Editing or addending needs to occur in the facilities medical record. Subjective: Belem Rodriguez is a 78 year old female. Patient being seen for skilled visit Chief Complaint Patient presents with Skilled Visit HPI: pt here for rehabilitation following [facility] admission for RLL pneumonia, Takatsubo Cardiomyopathy and [...] as severe. Her CBC's drawn at last [facility] admission showed WBC counts either normal or [...] E78.5 Vitamin D deficiency E55.9 COPD, moderate ([facility]) J44.9 Chronic drug-induced interstitial lung disorders ([facility]) J70.3 B12 deficiency E53.8 Degenerative cervical spinal stenosis M48.02 Peripheral neuropathy G62.9 Abnormality of gait R26.9 Thiamine deficiency E51.9 Asthma, mild persistent J45.30 Rheumatoid arthritis involving multiple sites with positive rheumatoid factor ([facility]) M05.79 Adjustment disorder with anxious mood F43.22 Essential hypertension with goal blood pressure less than 140/90 I10 Encounter for long-term (current) use of medications Z79.899 Generalized osteoarthritis of multiple sites M15.9 Impingement syndrome, shoulder, left M75.42 Esophageal dysphagia R13.19 Type 2 diabetes mellitus with peripheral neuropathy ([facility]) E11.42 History of rotator cuff tear Z87.39 Chronic right-sided heart failure ([facility]) I50.812 Major depressive disorder, recurrent episode, in partial remission ([facility]) F33.41 Gastroesophageal reflux disease without esophagitis K21.9 Coronary artery disease involving lime coronary artery of lime heart without angina pectoris I25.10 medical terminologist current use of therapeutic drug Z79.899 Age-related osteoporosis without current pathological fracture M81.0 Type 2 diabetes mellitus with hemoglobin A1c goal of less than 8.0% ([facility]) E11.9 Moderate protein-calorie malnutrition ([facility]) E44.0 Type 2 diabetes mellitus with stage 3b chronic kidney disease, without long-term current use of insulin ([facility]) E11.22, N18.32 Hypertensive heart and kidney disease with chronic right heart failure and stage 3b chronic kidney disease ([facility]) I13.0, I50.812, N18.32 Primary open angle glaucoma (POAG) of both eyes, mild stage H40.1131 History of HI (myocardial infarction) I25.2 Cerebrovascular disease, arteriosclerotic, post-stroke [...] difficile diarrhea 03/28/2019 CAD (coronary artery disease), lime coronary artery 08/10/2013 LAD disease Carpal tunnel [...] disease, chronic, stage III (GFR 30-59 ml/min) ([facility]) Kidney disease, chronic, stage III (GFR 30-59 ml/min) ([facility]) Knee joint replacement status 11/01/2007 left knee Migraine without aura Obesity, BMI not known Open wound of upper limb 11/05/2004 Other specified glaucoma Peripheral neuropathy 08/12/2013 Persistent insomnia 03/29/2013 Prediabetes 06/17/2021 Pressure ulcer of sacral region, unstageable ([facility]) 10/15/2022 Primary localized osteoarthrosis of shoulder region 09/02/2006 Primary localized osteoarthrosis, lower leg 04/12/2003 Primary osteoarthritis of right shoulder 10/04/2015 Pseudophakia OU Rheumatoid arthritis involving multiple sites with positive rheumatoid factor ([facility]) 03/05/2016 Rheumatoid arthritis(714.0) Rotator cuff rupture 10/16/1996 right shoulder Rupture of anterior cruciate ligament of right knee 06/21/2020 chronic Thiamine deficiency 08/15/2013 Type 2 diabetes mellitus with diabetic chronic kidney disease ([facility]) 04/03/2015 Type 2 diabetes mellitus with hemoglobin A1c goal of less than 8.0% ([facility]) 03/01/2019 Type 2 diabetes mellitus with peripheral neuropathy ([facility]) 05/10/2019 Vitamin D deficiency 04/11/2010 Past Surgical History: Procedure Laterality Date ARTHROPLASTY KNEE TOTAL 11/01/2007 left knee - Dr. Barnett BONE MARROW BIOPSY Left 07/11/2022 BONE MARROW BIOPSY (IES) performed by aKi Riggins MD at OR [facility] CARDIAC CATH SCANNED RESULT 08/10/2013 moderate disease LAD- Dr. Meza COLONOSCOPY, DIAGNOSTIC (RECTUM) 01/07/2017 diverticulosis, repeat 10 yrs/COLONOSCOPY FLEXIBLE PROXIMAL DIAGNOSTIC performed by Wood Menezes MD at ENDOSCOPY [facility] COLONOSCOPY, DIAGNOSTIC (RECTUM) 02/14/2021 diverticulosis / COLONOSCOPY FLEXIBLE PROXIMAL DIAGNOSTIC performed by Vinny Starr MD at ENDOSCOPY [facility] COLONOSCOPY, GI REFERRAL OP 12/2006 normal - Dr. Menezes EGD, FLEXIBLE, DIAGNOSTIC 12/1998 EGD, FLEXIBLE, DIAGNOSTIC 03/09/2019 acid reflux on bx/[facility] INJECT DX/THER SUBSTANCE INTERLAMINAR LUMBAR/SACRAL W IMAGE GUIDE 12/17/2017 INJECTION SPINE LUMBAR OR SACRAL performed by Andrea Mendoza, DO at OR [facility] LAPAROSCOPY; CHOLECYSTECTOMY 11/13/2019 REMOVAL OF OVARY/OVIDUCT(S) ovarian cyst - unilateral REMOVE CATARACT, INSERT LENS PROSTH Left 11/21/2016 EXTRACAPSULAR CATARACT REMOVAL WITH INTRAOCULAR LENS performed by Faraz Jeffers MD at [facility] REMOVE CATARACT, INSERT LENS PROSTH 04/22/2019 OD Arnold SN60WF 19.5 REMOVE CATARACT, INSERT LENS PROSTH Right 04/22/2019 EXTRACAPSULAR CATARACT REMOVAL WITH INTRAOCULAR LENS performed by Faraz Jeffers MD at OR [facility] REPAIR ARM TENDON/MUSCLE 11/03/1996 rotator cuff repair - right shoulder REVERSE TOTAL SHOULDER ARTHROPLASTY Right 12/21/2015 Dr. 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 Please refer to MAR in the facility's medical record forthe most up-to-date medication list as this cannot be edited in [employer]. Review of Systems: Constitutional ROS: No change [...] glucoses Continue to monitor Neutropenia, unspecified type ([facility]) Reviewed CBC and pathology results Will stop Hydroxchloroquiine for now due to possible contributing factor in neutropenia Discussed neutrhopenia with pt at length (approximately 25 minutes of visit ) Will obtain hematology consult PLAN: Reviewed CBC, Pathology results. BMP, Lytes and Continue present medication(s):as ordered. Jail Home Treatment Given: as above Electronically signed [...] SACRAL WOUND. NO DRAINAGE OR SECONDARY INFECTION. A: FEVER ? CAUSE RECENT RLL PNEUMONIA NEUTROPENIA HX OF RECURRENT C.DIFF P: WILL SWAB FOR RESPIRATORY PANEL CBC WITH DIFF, CMP CHECK URINE DIP AND C&S IF DIP IS POSITIVE WILL OBTAIN REPEAT CXR TO DOCUMENT CLEARING OF RLL PNEUMONIA WILL FOLLOW CLOSELY WAS PRESENT DURING MY ASSESSMENT AND DISCUSSED ABOVE WITH HIM TOTAL TIME SPENT WITH PATIENT, 70 MINUTES WITH OVER HALF TIME SPENT REVIEWING [facility] NOTES, LABS, STUDIES, AND PLANS OF CARE documented in this encounter Miscellaneous Notes * Addendum Note - Ming Mccarthy PA-C - 09/29/2023 1:32 PM ESTAddended by: MING MCCARTHY on: 09/29/2023 01:32 PM Modules accepted: Level of Service documented in this encounter Plan of Treatment Upcoming Encounters Date Type Department Care Team (Late st Contact Info) Description 10/20/2023 1:00 PM EST Office Visit Nephrology [address] [place] [address] Rachna Gonzalez MD [address] [facility] [place] [address] 01/29/2024 3:10 PM EDT Office Visit Family Medicine [address] [place] [phone] Leni Moyer[address] [place] [address] Health Maintenance Due Date Last Done Comments [...] Additional history exists CKD PHOS USE SMARTSET 67064 07/10/202406/15, 04/15/2022, 03/12/2021, Additional history exists O2 ASSESSMENT COMPLETED IN PAST YEAR FOR COPD 07/10/2024 07/10/2023 CKD HGB USE SMARTSET 94332 09/25/202409/25, 09/25/2023, 07/10/2023, Additional history exists DXA Scan 05/04/2025 05/04/2023, 03/14, 01/18/2013 Pneumococcal Vaccine: 65+ Years Completed 03/05/2017, 06/28/2015, 11/25/2011, Additional history exists Fecal Occult Blood Test Discontinued 09/23/19, 08/06/2018, 02/21/2004 VITAMIN D LEVEL ONCE IN A LIFETIME-USE SMARTSET# [id number] Completed 10/18/2020, 03/06/2020, 03/26/2018, Additional history exists [...] this encounter Medical Devices Implanted Type Area Waste Water Treatment Plant Operator Device Identifier Shelf Expiration Date Model / Serial / Lot Lens 19.5 Sn60wf - [id number] - [id number] Implanted:Qty: 1 on 11/21/2016 by Faraz Jeffers MD at OR [facility] Left: Eye ARNOLD : SURGICAL 05/14/2021 SN60WF.1 95 / [id number] / Lens 19.5 Sn60wf - [id number] - [id number] Implanted:Qty: 1 on 04/22/2019 by Faraz Jeffers MD at OR [facility] Right: Eye ARNOLD : SURGICAL 07/14/2023 SN60WF.195 / [id number] / documented as of this encounter [...] and were consensually agreed upon. Care Teams Wall And Floor Tiler Relationship Specialty Start Date End Date Leni Moyer DO [address] [place] [address] [place] [phone] PCP - General Internal Medicine 11/18/17 documented as of this encounter
--- OUTSIDE RECORDS SUMMARY | 2023-09-29 21:42 | External Medical Summary | Summary of Care ---
Author Name Unknown Organization [facility] Address [address] [facility] [place] [address] Phone [phone] Care Team Providers Care Sporting Goods Sales Manager Name Role Phone Leni Moyer Primary Care Provider [phone] Reason for Visit * Reason Onset Date Comments Skilled Visit 09/29/2023 Encounter Details Date Type Department Care Team (Latest Contact Info) Description 09/29/2023 9:00 AM EST Fdc Visit [facility] [address] [place] [address] Reny Barrera PA-C [address] [place] [address] Pneumonia of right lower lobe due to infectious organism*; Takotsubo cardiomyopathy; Hypertensive heart and kidney disease with chronic right heart failure and stage 3b chronic kidney disease (HCC); Type 2 diabetes mellitus without complication, without long-term current use of insulin ([facility]); Neutropenia, unspecified type ([facility]) Allergies Active Allergy Reactions Criticality Noted Date [...] Date End Date Status ONETOUCH ULTRAS[place]FT [place] [facility] [place] twice daily. E 11.9 1 Box Dosing Unit 11 12/15/2016 Active Nystatin (NYSTOP) 963973 UNIT/GM powderIndications:C utaneous candidiasis APPLY TOPICALLY TO AFFECTED AREA 3 TIMES A DAY. SPRINKLE OVER AFFECTED AREA. 15 g 2 12/15/2016 Active Blood Glucose Monitoring Suppl (BunkrUCH ULTRA SYSTEM) w/Device KIT Twice daily. 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 2019 Chronic right-sided heart failure 11/03/2019 Major depressive disorder, r ecurrent episode, in partial remission 11/03/2019 Last Assessment & Plan: Managed well with Cymbalta 60 mg daily Gastroesophageal reflux disease without esophagi tis 11/03/2019 Last Assessment & Plan: Managed with pantoprazole 40 mg daily Coronary artery disease invo lving cowlitz coronary artery of cowlitz heart without angina pectoris 11/03/2019 Last Assessment [...] ICD-10 update of inactive term LOC PRIM [id number] 04/12/200310/2016 PURE HYPERCHOLESTEROLEM 12/27/200107/16 Asthma with severity [...] ml/min) 05/27/2019 CAD (coronary artery disease ), cowlitz coronary artery 02/24/2022 Overview: duplicate documented as of this encounter (statuses as of 09/29/2023) Immunizations Name Administration Dates Next Due COVID-19 mRNA, LNP-s, No Pre serve, 2-Dose Series (Moderna) 05/06/2021,01/31/2021,01/02/2021 COVID-19, LNP-s, No Preserve , Pete-sucrose, Ages 12+ ([employer]) 03/26/2022 COVID-19, mRNA, LNP-s, PF, B ooster, [...] 10/20/2023 1:00 PM EST Office Visit Nephrology [address] [place] [address] Rachna Gonzalez MD [address] [place], [place] [address] 01/29/2024 3:10 PM EDT Office Visit Family Medicine [address] [place] [phone] [address] [place] [address] Health Maintenance Due Date Last Done Comments [...] Additional history exists CKD PHOS USE SMARTSET 56918 07/10/202406/15, 04/15/2022, 03/12/2021, Additional history exists O2 ASSESSMENT COMPLETED IN PAST YEAR FOR COPD 07/10/2024 07/10/2023 CKD HGB USE SMARTSET 48277 09/25/202409/25, 09/25/2023, 07/10/2023, Additional history exists DXA Scan 05/04/2025 05/04/2023, 03/14, 01/18/2013 Pneumococcal Vaccine: 65+ Years Completed 03/05/2017, 06/28/2015, 11/25/2011, Additional history exists Fecal Occult Blood Test Discontinued 09/23/19, 08/06/2018, 02/21/2004 VITAMIN D LEVEL ONCE IN A LIFETIME-USE SMARTSET# [id number] Completed 10/18/2020, 03/06/2020, 03/26/2018, Additional history exists [...] this encounter Medical Devices Implanted Type Area Irrigation Flume Layer Device Identifier Shelf Expiration Date Model / Serial / Lot Lens 19.5 Sn60wf - [id number] - [id number] Implanted:Qty: 1 on 11/21/2016 by Faraz Jeffers MD at OR [facility] Left: Eye RAMÓN : SURGICAL 05/14/2021 SN60WF.1 95 / [id number] 2 / Lens 19.5 Sn60wf - [id number] - [id number] Implanted:Qty: 1 on 04/22/2019 by Faraz Jeffers MD at OR [facility] Right: Eye RAMÓN : SURGICAL 07/14/2023 SN60WF.195 / [id number] / documented as of this encounter [...] and were consensually agreed upon. Care Teams Sporting Goods Sales Manager Relationship Specialty Start Date End Date Leni Moyer DO [address] [place] [address] [place] [id number] PCP - General Internal Medicine 11/18/17 documented as of this encounter
--- NOTE | 2023-09-29 22:58 | CT Scan Report ---
Exam(s): CT CHEST Without Contrast EXAM: CT Chest Without Intravenous Contrast CLINICAL HISTORY: Reason for exam: pancytopenia. TECHNIQUE: Axial computed tomography images of the chest without intravenous contrast. CTDI is 14.68 mGy and DLP is 383.5 mGy-cm. Automated exposure control was utilized for the study. A dose lowering technique was utilized adhering to the principles of ALARA. COMPARISON: No relevant prior studies available. FINDINGS: Lungs: Atelectasis at the lung bases. No mass. Pleural space: Unremarkable. No pneumothorax. No significant effusion. Heart: Cardiomegaly. No significant pericardial effusion. No significant coronary artery calcifications. Bones/joints: Degenerative changes of the spine. No acute fracture. No dislocation. Soft tissues: Unremarkable. Vasculature: Atherosclerotic changes of the aorta. No thoracic aortic aneurysm. Lymph nodes: Unremarkable. No enlarged lymph nodes. Gallbladder and bile ducts: Cholecystectomy. IMPRESSION: No acute findings in the chest. Electronically signed by: Jaron Good MD 09/29/23 22:57 PM
[2023-09-29] MEDS: METOPROLOL SUCC 50MG EXT REL TAB PO SCH (23:17)
[2023-09-29] MEDS: MAGNESIUM SULFATE / D5W 1 GM/100 ML BAG IV SCH ×2 (23:17→23:21)
[2023-09-29] MEDS: PANTOprazole 40 MG TAB PO SCH (23:17)
[2023-09-29] MEDS: ROSUVASTATIN CALCIUM 20 MG TAB PO SCH (23:18)
[2023-09-29] MEDS: ADVANCED PROBIOTIC 1250 MG CAPSULE PO SCH (23:18)
[2023-09-29] MEDS: guaiFENesin 600 MG TABCR PO SCH (23:18)
[2023-09-29] MEDS: LATANOPROST 0.005% OP SOLN 2.5 ML BTL OPB SCH (23:21)
[2023-09-29] MEDS: MICONAZOLE NITRATE POWDER 85 GM TOP SCH (23:24)
[2023-09-30 00:16] LABS: Adenovirus PCR Not Detected (NotDetected); Bordetella parapertussis PCR Not Detected (NotDetected); Bordetella pertussis PCR Not Detected (NotDetected); Chlamydia pneumoniae PCR Not Detected (NotDetected); Coronavirus 229E PCR Not Detected (NotDetected); Coronavirus CoV-2 (COVID19)PCR Not Detected (NotDetected); Coronavirus HKU1 PCR Not Detected (NotDetected); Coronavirus NL63 PCR Not Detected (NotDetected); Coronavirus OC43PCR Not Detected (NotDetected); Human Metapneumovirus PCR Not Detected (NotDetected); Influenza A PCR Not Detected (NotDetected); Influenza B PCR Not Detected (NotDetected); Mycoplasma pneumoniae PCR Not Detected (NotDetected); Parainfluenza Virus 1 PCR Not Detected (NotDetected); Parainfluenza Virus 2 PCR Not Detected (NotDetected); Parainfluenza Virus 3 PCR Not Detected (NotDetected); Parainfluenza Virus 4 PCR Not Detected (NotDetected); Respiratory Syncytial VirusPCR Not Detected (NotDetected); Rhinovirus/Enterovirus PCR Not Detected (NotDetected)
[2023-09-30 03:51] LABS: Hematocrit (blood only) 26.1 % (37.0-47.0); Hemoglobin 8.6 g/dl (12.0-16.0); Mean Corpuscular Hemoglobin 27.5 pg (25.0-34.0); Mean Corpuscular Volume 83.4 fL (80.0-100.0); Mean Platelet Volume 9.1 fL (9.4-12.4); Platelet Count 130 K/uL (130-400); RDW Coefficient of Variation 17.1 % (11.5-14.5); RDW Standard Deviation 52.1 fL (36.4-46.3); Red Blood Count 3.13 M/uL (4.20-5.40); White Blood Count 1.12 K/ul (4.8-10.8)
[2023-09-30 03:59] LABS: Albumin Level 2.9 gm/dl (3.4-5.0); BUN Creatinine Ratio 19.8 (10-20); Bilirubin,Total 0.6 mg/dl (0.2-1.0); Creatinine Clr Calc Pharmacy 36.8 ml/min; Est GFR (African American) 62.6 ml/min; Globulin 2.9 gm/dl (2.5-4.0); Magnesium 2.4 mg/dl (1.7-2.4); Phosphorus 2.1 mg/dl (2.5-4.9); Potassium 3.6 mmol/L (3.5-5.1); Total Protein 5.8 gm/dl (6.0-8.3)
[2023-09-30 05:05] LABS: ANC (manual) 0.12 K/uL (1.4-6.5); Basophils # (manual) 0.01 K/uL (0-0.2); Basophils % (manual) 1 %; Eosinophils # (manual) 0.01 K/uL (0-0.50); Eosinophils % (manual) 1 %; Lymphocytes % (manual) 80 %; Microcytosis Present; Monocytes # (manual) 0.08 K/uL (0.11-0.59); Monocytes % (manual) 7 %; Neutrophils # (manual) 0.12 K/uL (1.40-6.50); Neutrophils % (manual) 11 %; Polychromasia 1+
[2023-09-30] MEDS ORDERED: CEFEPIME 2,000 MG/20 ML VIAL ONE (05:22)
[2023-09-30] MEDS: CEFEPIME 2,000 MG in SYRINGE 0 ML IV SCH ×2 (05:25→17:48)
[2023-09-30] MEDS: ISOSORBIDE DINITRATE 10 MG TAB PO SCH ×2 (07:06→11:31)
[2023-09-30] MEDS: CLOPIDOGREL BISULFATE 75 MG TAB PO SCH (08:18)
[2023-09-30] MEDS: OXYBUTYNIN CHLORIDE XL 5 MG TABCR PO SCH (08:18)
[2023-09-30] MEDS: THIAMINE HCL 50 MG TABLET PO SCH (08:18)
[2023-09-30] MEDS: METOPROLOL SUCC 50MG EXT REL TAB PO SCH ×2 (08:18→22:07)
[2023-09-30] MEDS: CEROVITE ADV FORMULA TAB PO SCH (08:18)
[2023-09-30] MEDS: CHOLECALCIFEROL 25 MCG (1000 UNITS) TAB PO SCH (08:18)
[2023-09-30] MEDS: guaiFENesin 600 MG TABCR PO SCH ×2 (08:19→22:08)
[2023-09-30] MEDS: FOLIC ACID 1 MG TAB PO SCH (08:19)
[2023-09-30] MEDS: MONTELUKAST SODIUM 10 MG TABLET PO SCH (08:19)
[2023-09-30] MEDS: PANTOprazole 40 MG TAB PO SCH ×2 (08:19→22:08)
[2023-09-30] MEDS: ADVANCED PROBIOTIC 1250 MG CAPSULE PO SCH ×2 (08:19→22:08)
[2023-09-30] MEDS: predniSONE 5 MG TAB PO SCH (08:19)
[2023-09-30] MEDS: DULoxetine HCL 60 MG CAP PO SCH (08:19)
[2023-09-30] MEDS: CYANOCOBALAMIN (B-12) 500 MCG TABLET PO SCH (08:19)
[2023-09-30] MEDS: MULTIVITAMIN TAB PO SCH (08:19)
[2023-09-30] MEDS: FLUTICASONE/VILANTEROL 200/25MCG 14 PUFFS/INHALER INH SCH (08:21)
[2023-09-30] MEDS: DOXYCYCLINE HYCLATE 100 MG in DEXTROSE 5% MINI-B 100 ML IV SCH ×2 (08:22→22:08)
[2023-09-30] MEDS: MICONAZOLE NITRATE POWDER 85 GM TOP SCH ×2 (08:22→21:45)
--- NOTE | 2023-09-30 08:41 | Nephrology Consultation ---
Date of Consultation September 30, 2023 Assessment & Plan (1) Electrolyte and fluid disorder: w/ improving or stable mild hyponatremia (presenting sodium 129 up to 131 on 09/30), mild hypocalcemia, hypophosphatemia, intermittent hypomagnesemia -ordered urine/serum sodium studies for tomorrow am -goal sNa for am is wnl at most -for now no fluid limit needed -daily bmp, mag, phos -encourage po intake > consider hydraulic miner consultation (2) Complicated UTI (urinary tract infection): Hx of Klebsiella ESBL uti last month; culture this admission pending and UA c/w possible infection. also being covered for rickettsial diseases for now -cont abtx. History of Present Illness Reason for Consultation: hyponatremia Requesting Physician: Dr Holm Attending Physician: Malika Holm MD History of Present Illness 78 y/o F whom I'm asked to see for hyponatremia was admitted last evening for evaluation of altered MS in the setting of pancytopenia and presumed UTI. Her presenting sodium was 129; it's 131 this am. PMH includes rheumatoid arthritis on prednisone and plaquenil, type 2 diabetes, CKD stage III baseline creatinine of 1.1, hyperlipidemia, chronic drug-induced interstitial lung disorders, asthma mild persistent, COPD, chronic right-sided heart failure, hypertension, history of CAD, history of CVA, mild aortic stenosis, paroxysmal atrial fibrillation, ?mild cognitive impairment. Recent admission here 09/05-09/22/23 w/ sepsis/R lung PNA, ANDRESSA on CKD from ischemic ATN, hyponatremia, Takotsubo cardiomyopathy with a EF of 20 to 25%. Found in that admission to have a liver mass for OP IR biopsy and w/u. D/c to a SNF. She had F to 102 at rehab prior to admission w/ urine studies concerning for UTI; noted also to have pancytopenia w/ recent possible tick exposure. She was admitted w/ sepsis w/u, started on cefepime and doxycycline pending tick borne illness panel. she had a L of NS yesterday evening. Hematology saw the patient and observing/working up pancytopenia, new this admission and related possibly to infection versus autoimmune versus potentially underlying hematologic malignancy. Mag repleted. admits occasional twinge w/ voiding but no consistent dysuria, no gross hematuria, no diarrhea, no abd or flank pain. picky eater. no sob or edema. no chest pain or palpitations. Allergies Allergy/AdvReac Type Severity Reaction Status Date / Time Influenza Virus Vaccines Allergy Severe FLOWN TO Verified 09/05/23 20:43 [facility]. ciprofloxacin Allergy Intermediate RASH/BLEEDI Verified 09/05/23 20:43 NG methotrexate Allergy Intermediate RASH/PNEUMO Verified 09/05/23 20:43 NITIS Penicillins Allergy Intermediate hives Verified 09/05/23 20:43 ranitidine Allergy Intermediate rash Verified 09/05/23 20:43 Home Medications Medication Instructions Recorded Confirmed Type folic acid 1 mg tablet 1 mg PO QAM 07/20/18 09/29/23 History prednisone 5 mg tablet 5 mg PO QAM 07/20/18 09/29/23 History albuterol sulfate 90 mcg/actuation 2 puff inhalation Q4 PRN Shortness 03/07/19 09/29/23 History aerosol inhaler (ProAir HFA) Of Breath cyanocobalamin (vitamin B-12) 2,000 mcg PO 3XWK 03/07/19 09/29/23 History 1,000 mcg tablet (Vitamin B-12) vit A 300 mcg-C 200 mg-E 27 1 tab PO QAM 03/07/19 09/29/23 History mg-lutein 2 mg and minerals tablet (Ocuvite with Lutein) [id number] 8 mg-folic 400 1 tab PO QAM 11/12/19 09/29/23 History mcg-K 50 mcg-lutein 300 mcg tablet (Centrum Silver Women) montelukast 10 mg tablet 10 mg PO QAM 11/15/20 09/29/23 History latanoprost 0.005 % eye drops 1 drp OPB HS 01/03/21 09/29/23 History solifenacin 10 mg tablet (Vesicare) 10 mg PO QAM 08/22/21 09/29/23 History acetaminophen 325 mg tablet 650 mg PO Q4 PRN Fever Or Pain 03/21/22 09/29/23 History fluticasone furoate 200 1 inh inhalation DAILY 03/21/22 09/29/23 History mcg-vilanterol 25 mcg/dose inhalation powder (Breo Ellipta) thiamine HCl (vitamin B1) 100 mg 50 mg PO QAM 03/21/22 09/29/23 History tablet clopidogrel 75 mg tablet 75 mg PO QAM #30 tabs 04/01/22 09/29/23 Rx Lactobacillus rhamnosus GG 5 5 cell PO BID 08/06/22 09/29/23 History billion cell oral powder packet (Nathanael [employer]roz[employer] Probiotics) albuterol sulfate 2.5 mg/3 mL 2.5 mg inhalation QID PRN 08/06/22 09/29/23 History (0.083 %) solution for nebulization Shortness Of Breath Or Wheezing cholecalciferol (vitamin D3) 50 50 mcg PO QAM 08/06/22 09/29/23 History mcg (2,000 unit) capsule (Vitamin D3) guaifenesin 600 mg tablet, 600 mg PO Q12 #10 tabs 09/22/23 09/29/23 Rx extended release 12 hr (Mucinex) isosorbide dinitrate 10 mg tablet 10 mg PO BID #60 tabs 09/22/23 09/29/23 Rx duloxetine 60 mg capsule,delayed 60 mg PO QAM 09/29/23 09/29/23 History release hydroxychloroquine 200 mg tablet 200 mg PO .ON HOLD 09/29/23 09/29/23 History metoprolol succinate 50 mg 50 mg PO AMHS 09/29/23 09/29/23 History tablet,extended release 24 hr miconazole nitrate 2 % topical 1 applic topical BID 09/29/23 09/29/23 History powder (Remedy Antifungal) pantoprazole 40 mg tablet,delayed 40 mg PO AMHS 09/29/23 09/29/23 History release rosuvastatin 20 mg tablet 20 mg PO HS 09/29/23 09/29/23 History silver sulfadiazine 1 % topical 1 applic topical [id number] 09/29/23 09/29/23 History cream (Silvadene) Patient History Medical History Wrist fracture, left History of stroke Thrush, oral Hyponatremia Nontraumatic rectus hematoma NSTEMI (non-ST elevated myocardial infarction) UTI (urinary tract infection) Immunosuppressed status DVT prophylaxis CKD (chronic kidney disease), stage III Acute hyponatremia Abnormal ECG Elevated troponin Syncope NSTEMI (non-ST elevated myocardial infarction) Visual hallucinations Hyponatremia RSV infection Recurrent Clostridium difficile diarrhea Chronic steroid use prednisone daily Gout H/O interstitial lung disease "drug induced- methotrexate " Osteoarthritis Glaucoma Peripheral neuropathy Dyslipidemia Rheumatoid arthritis "on chronic steroids" COPD (chronic obstructive pulmonary disease) inhalers prn Depression CKD (chronic kidney disease), stage III Gastroparesis DM type 2 (diabetes mellitus, type 2) GERD (gastroesophageal reflux disease) Migraines DJD of right shoulder NSTEMI (non-ST elevated myocardial infarction) (08/06/13) Asthma inhalers prn HTN (hypertension) Heart disease Surgical History History of tooth extraction all top teeth History of esophagogastroduodenoscopy (EGD) H/O cardiac catheterization "cath 07/2013- single vessel CAD involving apical segment LAD, medical management indicated" S/P total knee arthroplasty "left knee" History of hysterectomy H/O colonoscopy S/P rotator cuff repair "right shoulder" S/P removal of ovarian cyst Family History Father Family history of diabetes mellitus Mother Heart disease Hypertension Other No family history of adverse response to anesthesia Social History Smoking Status: Never smoker Second Hand Exposure: No; Do You Dip or Chew Tobacco: No; Tobacco Cessation Education Requested by Patient: No Hx Alcohol Use: No Hx Substance Use: No Preferred Language: Tristanian Communication Ability: Effective Blueprinting And Photocopy Supervisor Required: No Beliefs That Will Affect Care: None marital status: Current Living Situation: Spouse and Parent current occupational status: retired current occupation: Former [employer] Other Information That Helps Us Care for You: No Feels Safe at Home: Yes Assistive Devices: Cane and Walker Review of Systems 2 Review of Systems: All systems reviewed & are unremarkable except as noted in Subjective Physical Exam 2 Constitutional: well developed, well nourished, + physical limitations, + frail appearing and cooperative; no acute distress Eyes: EOM intact bilaterally ENMT: Ears: no external ear abnormality Nose: no external nose abnormality Mouth: + dry oral mucous membranes Neck: no nuchal rigidity Respiratory: normal respiratory effort Auscultation: + diminished lung sounds Cardiovascular: Rate/Rhythm: regular rate and regular rhythm Extremities: n o edema Gastrointestinal (Abdomen): Inspection/Auscultation: normal bowel sounds P ercussion/Palpation: abdomen soft; abdomen nontender Musculoskeletal: Extremities: strength 5/5 throughout Skin: no rashes, warm and dry Neurologic: cornejo, fluent speech, no tremor Psychiatric: Orientation: alert, oriented to person and oriented to place Results & Data Vital Signs (Past 12 Hours) Vital Signs Pulse Resp BP Pulse Ox 09/30/23 07:02 63 09/30/23 05:00 63 24 99 09/30/23 05:00 172/64 H 09/30/23 04:00 175/69 H 09/30/23 04:00 62 20 98 09/30/23 03:00 158/86 H 09/30/23 03:00 63 19 100 09/30/23 02:00 61 22 99 09/30/23 02:00 166/71 H 09/30/23 01:00 62 21 09/30/23 01:00 163/71 H 98 09/30/23 00:00 150/92 H 98 09/30/23 00:00 63 22 09/29/23 23:42 157/80 H 98 09/29/23 23:42 69 22 09/29/23 23:13 65 24 09/29/23 23:13 154/54 H 97 09/29/23 21:30 67 20 98 09/29/23 21:30 150/79 H 09/29/23 21:00 136/73 09/29/23 21:00 69 21 99 Laboratory Results 09/30/23 03:12 09/30/23 03:[address] unremarkable cxr mild cardiomegaly else no acute process
--- NOTE | 2023-09-30 11:34 | Hospitalist Progress Note ---
Date of Service September 30, 2023 Assessment & Plan (1) Pancytopenia: (2) Complicated UTI (urinary tract infection): Plan 75-year-old female with type 2 diabetes, CKD stage III, hyperlipidemia, chronic drug-induced interstitial lung disorders, asthma mild persistent, COPD, chronic right-sided heart failure, hypertension, history of CAD, history of CVA, mild aortic stenosis, paroxysmal atrial fibrillation, moderate protein calorie malnutrition, slow transit constipation, vitamin B-12 and thiamine deficiency, history of esophageal dysphagia, GERD, gout, osteoarthritis, primary open-angle glaucoma, polyneuropathy, rheumatoid arthritis involving multiple sites with positive rheumatoid factor, depression, history of C. difficile, history of COVID, history of fever of unknown origin admitted with abnormal labwork at rehab. AMS UTI Discussed with on admission, pt not currently at her baseline. Notes fever of 102 today at [facility] rehab UA suggestive of infection Urine Cx pending Chest XRAY with no acute changes CT chest with no acute findings in the chest Biofire completely negative Procal elevated at 2.31, lactate wnl Blood cx x2 with NGTD On Cefepime and empiric doxycycline (see below), continue Pancytopenia Pt with WBC 1.07K, Hgb 7.7, platelets 118K Tick borne testing r/o- pt states she took a tick out off her cat about a month ago Biofire as above to rule out a viral suppression cause- negative Peripheral smear ordered Hematology consult Empiric doxycycline for possible tick borne cause Transfuse hgb as needed if <7, currently back up to 8.6 HypoMagnesemia Mag 1.6 on admission Replete as needed Hyponatremia Sodium 129 on admission Chronic Hx, Known to nephrology service Nephrology consult placed Currently trending back up Elevated trop Atrial fibrillation Trops elevated at 25.3, downtrended to 23.2 EKG showed atrial fibrillation On metoprolol succinate 50mg BID, not on anticoagulation Doubt ACS Continue other home meds as ordered CODE STATUS: DNR/DNI after discussion with pt's DVT prophylaxis: Deferred in setting of thrombocytopenia/anemia Diet: HH/minced and moist Dispo: PT/OT Admission and Anticipated Discharge Date Admission Date: September 29, 2023 Physical Exam Physical Exam: General: Alert, orientedx1. No acute distress Psych: Appropriate mood and affect Neuro: difficulty with movements in the bed HEENT: NC/AT CV: Irregular rate and rhythm Resp: no increased effort of breathing Abdomen: Soft Extremities: edema in lower extremities bilaterally. Results & Data Results & Data Vital Signs (Past 12 Hours) Vital Signs Pulse Resp BP Pulse Ox 09/30/23 07:02 63 09/30/23 05:00 63 24 99 09/30/23 05:00 172/64 H 09/30/23 04:00 175/69 H 09/30/23 04:00 62 20 98 09/30/23 03:00 158/86 H 09/30/23 03:00 63 19 100 09/30/23 02:00 61 22 99 09/30/23 02:00 166/71 H 09/30/23 01:00 62 21 09/30/23 01:00 163/71 H 98 09/30/23 00:00 150/92 H 98 09/30/23 00:00 63 22 09/29/23 23:42 157/80 H 98 09/29/23 23:42 69 22
[2023-09-30] MEDS ORDERED: POTASSIUM PHOS 3 MMOL/1 ML INFUSION IV STA (12:38)
[2023-09-30] MEDS ORDERED: POTASSIUM PHOSPHATE 24 MMOL in SODIUM CHLORIDE 0.9% 500 ML IV ONE (12:45)
--- NOTE | 2023-09-30 17:09 | Oncology Consultation ---
Date of Consultation September 30, 2023 Assessment & Plan (1) Pancytopenia: (2) Sepsis: (3) Complicated UTI (urinary tract infection): Plan Patient with UTI and pancytopenia. Of note, labs obtained less than a month ago revealed essentially normal WBC and platelet count. She has had chronic anemia for several years -Potential causes of pancytopenia include infection in the setting of UTI, autoimmune causes especially since she has rheumatoid arthritis or underlying hematologic malignancies such as plasma cell dyscrasia or T-cell LGL based on peripheral smear -Agree with treating UTI -Recommend checking B12, folate levels to rule out nutritional causes of pancytopenia. Also iron studies to evaluate for iron deficiency -Recommend obtaining SPEP with MARTHA, quantitative immunoglobulins and serum free light chains to rule out plasma cell dyscrasia -Flow cytometry to evaluate for T-cell LGL -If neutropenia is due to underlying infection, would expect ANC to have improved by tomorrow since she would have been on antibiotic coverage for about 24 to 48 hours. If ANC remains low at less than 500 tomorrow, recommend giving filgrastim 300 mcg daily x 2 days -If workup is essentially negative and cytopenias persist, may consider obtaining bone marrow biopsy outpatient. Thank you for this consult. Hematology will continue to follow peripherally and schedule her for follow-up upon discharge from hospital. Please feel free to call if you have any further questions. History of Present Illness Reason for Consultation: Pancytopenia Attending Physician: Malika Holm MD History of Present Illness 78-year-old female with multiple comorbidities admitted to [facility] [address] after presenting with fever. Labs obtained on admission revealed pancytopenia with white cell count of 1.07, hemoglobin 7.7, hematocrit 23.0, MCV 83, platelet count of 118,000. ANC was significantly low at 0.18. Workup for infection was essentially negative except for abnormal urinalysis concerning for UTI for which she was placed on antibiotics. Repeat labs obtained today revealed persistent leukopenia with white cell count of 1.12, improved hemoglobin of 8.6 with hematocrit of 26.1 and normal platelet count of 130,000. Peripheral smear review by pathology revealed pancytopenia with slight rouleaux and rare possible plasma cells as well as some reactive appearing large granular lymphocytes. Allergies Allergy/AdvReac Type Severity Reaction Status Date / Time Influenza Virus Vaccines Allergy Severe FLOWN TO Verified 09/05/23 20:43 [facility]. ciprofloxacin Allergy Intermediate RASH/BLEEDI Verified 09/05/23 20:43 NG methotrexate Allergy Intermediate RASH/PNEUMO Verified 09/05/23 20:43 [facility] Penicillins Allergy Intermediate hives Verified 09/05/23 20:43 ranitidine Allergy Intermediate rash Verified 09/05/23 20:43 Home Medications Medication Instructions Recorded Confirmed Type folic acid 1 mg tablet 1 mg PO QAM 07/20/18 09/29/23 History prednisone 5 mg tablet 5 mg PO QAM 07/20/18 09/29/23 History albuterol sulfate 90 mcg/actuation 2 puff inhalation Q4 PRN Shortness 03/07/19 09/29/23 History aerosol inhaler (ProAir HFA) Of Breath cyanocobalamin (vitamin B-12) 2,000 mcg PO 3XWK 03/07/19 09/29/23 History 1,000 mcg tablet (Vitamin B-12) vit A 300 mcg-C 200 mg-E 27 1 tab PO QAM 03/07/19 09/29/23 History mg-lutein 2 mg and minerals tablet (Ocuvite with Lutein) [id number] 8 mg-folic 400 1 tab PO QAM 11/12/19 09/29/23 History mcg-K 50 mcg-lutein 300 mcg tablet (Centrum Silver Women) montelukast 10 mg tablet 10 mg PO QAM 11/15/20 09/29/23 History latanoprost 0.005 % eye drops 1 drp OPB HS 01/03/21 09/29/23 History solifenacin 10 mg tablet (Vesicare) 10 mg PO QAM 08/22/21 09/29/23 History acetaminophen 325 mg tablet 650 mg PO Q4 PRN Fever Or Pain 03/21/22 09/29/23 History fluticasone furoate 200 1 inh inhalation DAILY 03/21/22 09/29/23 History mcg-vilanterol 25 mcg/dose inhalation powder (Breo Ellipta) thiamine HCl (vitamin B1) 100 mg 50 mg PO QAM 03/21/22 09/29/23 History tablet clopidogrel 75 mg tablet 75 mg PO QAM #30 tabs 04/01/22 09/29/23 Rx Lactobacillus rhamnosus GG 5 5 cell PO BID 08/06/22 09/29/23 History billion cell oral powder packet ([employer] Kids Probiotics) albuterol sulfate 2.5 mg/3 mL 2.5 mg inhalation QID PRN 08/06/22 09/29/23 History (0.083 %) solution for nebulization Shortness Of Breath Or Wheezing cholecalciferol (vitamin D3) 50 50 mcg PO QAM 08/06/22 09/29/23 History mcg (2,000 unit) capsule (Vitamin D3) guaifenesin 600 mg tablet, 600 mg PO Q12 #10 tabs 09/22/23 09/29/23 Rx extended release 12 hr (Mucinex) isosorbide dinitrate 10 mg tablet 10 mg PO BID #60 tabs 09/22/23 09/29/23 Rx duloxetine 60 mg capsule,delayed 60 mg PO QAM 09/29/23 09/29/23 History release hydroxychloroquine 200 mg tablet 200 mg PO .ON HOLD 09/29/23 09/29/23 History metoprolol succinate 50 mg 50 mg PO AMHS 09/29/23 09/29/23 History tablet,extended release 24 hr miconazole nitrate 2 % topical 1 applic topical BID 09/29/23 09/29/23 History powder (Remedy Antifungal) pantoprazole 40 mg tablet,delayed 40 mg PO AMHS 09/29/23 09/29/23 History release rosuvastatin 20 mg tablet 20 mg PO HS 09/29/23 09/29/23 History silver sulfadiazine 1 % topical 1 applic topical [id number] 09/29/23 09/29/23 History cream (Silvadene) Patient History Medical History Wrist fracture, left History of stroke Thrush, oral Hyponatremia Nontraumatic rectus hematoma NSTEMI (non-ST elevated myocardial infarction) UTI (urinary tract infection) Immunosuppressed status DVT prophylaxis CKD (chronic kidney disease), stage III Acute hyponatremia Abnormal ECG Elevated troponin Syncope NSTEMI (non-ST elevated myocardial infarction) Visual hallucinations Hyponatremia RSV infection Recurrent Clostridium difficile diarrhea Chronic steroid use prednisone daily Gout H/O interstitial lung disease "drug induced- methotrexate " Osteoarthritis Glaucoma Peripheral neuropathy Dyslipidemia Rheumatoid arthritis "on chronic steroids" COPD (chronic obstructive pulmonary disease) inhalers prn Depression CKD (chronic kidney disease), stage III Gastroparesis DM type 2 (diabetes mellitus, type 2) GERD (gastroesophageal reflux disease) Migraines DJD of right shoulder NSTEMI (non-ST elevated myocardial infarction) (08/06/13) Asthma inhalers prn HTN (hypertension) Heart disease Surgical History History of tooth extraction all top teeth History of esophagogastroduodenoscopy (EGD) H/O cardiac catheterization "cath 07/2013- single vessel CAD involving apical segment LAD, medical management indicated" S/P total knee arthroplasty "left knee" History of hysterectomy H/O colonoscopy S/P rotator cuff repair "right shoulder" S/P removal of ovarian cyst Family History Father Family history of diabetes mellitus Mother Heart disease Hypertension Other No family history of adverse response to anesthesia Social History Smoking Status: Never smoker Second Hand Exposure: No; Do You Dip or Chew Tobacco: No; Tobacco Cessation Education Requested by Patient: No Hx Alcohol Use: No Hx Substance Use: No Preferred Language: Japanese Communication Ability: Effective Facial Operator Required: No Beliefs That Will Affect Care: None marital status: Current Living Situation: Spouse and Parent current occupational status: retired current occupation: Former [employer] Other Information That Helps Us Care for You: No Feels Safe at Home: Yes Assistive Devices: Cane and Walker Results & Data Vital Signs (Past 12 Hours) Vital Signs Temp Pulse Pulse Resp BP BP Pulse Ox 09/30/23 14:25 09/30/23 13:47 36.9 C 59 L 20 125/52 L 100 09/30/23 13:00 144/72 H 09/30/23 13:00 63 15 98 09/30/23 12:00 61 21 97 09/30/23 12:00 150/61 H 09/30/23 11:00 59 L 22 98 09/30/23 11:00 156/72 H 09/30/23 10:00 67 24 99 09/30/23 10:00 169/71 H 09/30/23 09:00 65 24 98 09/30/23 09:00 154/60 H 09/30/23 08:00 134/59 L 09/30/23 08:00 61 25 H 96 09/30/23 07:02 63 09/30/23 07:00 62 20 97 09/30/23 07:00 148/62 H 09/30/23 06:00 63 26 H 97 09/30/23 06:00 161/72 H O2 Del Method 09/30/23 14:25 Room Air 09/30/23 13:47 Room Air 09/30/23 13:00 09/30/23 13:00 09/30/23 12:00 09/30/23 12:00 09/30/23 11:00 09/30/23 11:00 09/30/23 10:00 09/30/23 10:00 09/30/23 09:00 09/30/23 09:00 09/30/23 08:00 09/30/23 08:00 09/30/23 07:02 09/30/23 07:00 09/30/23 07:00 09/30/23 06:00 09/30/23 06:00
[2023-09-30 17:25] LABS: Immunoglobulin A 183.7 mg/dl (70-400); Immunoglobulin G 571.9 mg/dl (635-1741); Immunoglobulin M 123.1 mg/dl (45-281)
[2023-09-30 17:45] LABS: Ferritin 155.8 ng/ml (8-388)
[2023-09-30 17:51] LABS: Folate (Folic Acid),Ser orPlas > 22.30 ng/ml (>5.38)
[2023-09-30 17:52] LABS: Vitamin B12 > 1500 pg/ml (180-914)
[2023-09-30] MEDS: LATANOPROST 0.005% OP SOLN 2.5 ML BTL OPB SCH (21:45)
[2023-09-30] MEDS: ROSUVASTATIN CALCIUM 20 MG TAB PO SCH (22:08)
[2023-10-01] MEDS: CEFEPIME 2,000 MG in SYRINGE 0 ML IV SCH ×2 (06:10→17:16)
[2023-10-01] MEDS: ISOSORBIDE DINITRATE 10 MG TAB PO SCH ×2 (06:12→12:53)
[2023-10-01] MEDS ORDERED: IRON SUCROSE 300 MG in SODIUM CHLORIDE 0.9% 250 ML IV ONE (07:30)
[2023-10-01 08:16] LABS: Hemoglobin 8.4 g/dl (12.0-16.0); Mean Corpuscular Hemoglobin 27.6 pg (25.0-34.0); Mean Corpuscular Hgb Conc 33.6 g/dL (32.0-36.0); Mean Corpuscular Volume 82.2 fL (80.0-100.0); Mean Platelet Volume 8.7 fL (9.4-12.4); Platelet Count 169 K/uL (130-400); RDW Coefficient of Variation 16.9 % (11.5-14.5); RDW Standard Deviation 50.8 fL (36.4-46.3); Red Blood Count 3.04 M/uL (4.20-5.40); White Blood Count 1.14 K/ul (4.8-10.8)
[2023-10-01 08:44] LABS: Albumin Level 2.8 gm/dl (3.4-5.0); BUN Creatinine Ratio 20.7 (10-20); Bilirubin,Total 0.6 mg/dl (0.2-1.0); Creatinine Clr Calc Pharmacy 42.7 ml/min; Est GFR (Non-African American) 64.7 ml/min; Globulin 2.8 gm/dl (2.5-4.0); Magnesium 1.8 mg/dl (1.7-2.4); Phosphorus 2.5 mg/dl (2.5-4.9); Potassium 3.8 mmol/L (3.5-5.1); Total Protein 5.6 gm/dl (6.0-8.3)
[2023-10-01 09:08] LABS: Lymphocytes # (auto) 0.65 K/uL (1.20-3.40); Monocytes # (auto) 0.31 K/uL (0.11-0.59); Monocytes % (auto) 27.2 %; Neutrophils # (auto) 0.18 K/uL (1.40-6.50); Neutrophils % (auto) 15.8 %; Toxic Granulation 1+
[2023-10-01] MEDS: CHOLECALCIFEROL 25 MCG (1000 UNITS) TAB PO SCH (09:21)
[2023-10-01] MEDS: CLOPIDOGREL BISULFATE 75 MG TAB PO SCH (09:24)
[2023-10-01] MEDS: DULoxetine HCL 60 MG CAP PO SCH (09:25)
[2023-10-01] MEDS: FOLIC ACID 1 MG TAB PO SCH (09:25)
[2023-10-01] MEDS: guaiFENesin 600 MG TABCR PO SCH ×2 (09:26→20:34)
[2023-10-01] MEDS: ADVANCED PROBIOTIC 1250 MG CAPSULE PO SCH ×2 (09:27→20:34)
[2023-10-01] MEDS: METOPROLOL SUCC 50MG EXT REL TAB PO SCH ×2 (09:28→20:34)
[2023-10-01] MEDS: MICONAZOLE NITRATE POWDER 85 GM TOP SCH ×2 (09:30→20:36)
[2023-10-01] MEDS: MONTELUKAST SODIUM 10 MG TABLET PO SCH (09:30)
[2023-10-01] MEDS: MULTIVITAMIN TAB PO SCH (09:31)
[2023-10-01] MEDS: CEROVITE ADV FORMULA TAB PO SCH (09:31)
[2023-10-01] MEDS: OXYBUTYNIN CHLORIDE XL 5 MG TABCR PO SCH (09:32)
[2023-10-01] MEDS: THIAMINE HCL 50 MG TABLET PO SCH (09:34)
[2023-10-01] MEDS: predniSONE 5 MG TAB PO SCH (09:34)
[2023-10-01] MEDS: PANTOprazole 40 MG TAB PO SCH ×2 (09:34→20:34)
[2023-10-01] MEDS: FLUTICASONE/VILANTEROL 200/25MCG 14 PUFFS/INHALER INH SCH (09:36)
[2023-10-01] MEDS: DOXYCYCLINE HYCLATE 100 MG in DEXTROSE 5% MINI-B 100 ML IV SCH (09:37)
--- NOTE | 2023-10-01 09:49 | Hospitalist Progress Note ---
Date of Service October 01, 2023 Assessment & Plan (1) Pancytopenia: (2) Complicated UTI (urinary tract infection): Plan 75-year-old female with type 2 diabetes, CKD stage III, hyperlipidemia, chronic drug-induced interstitial lung disorders, asthma mild persistent, COPD, chronic right-sided heart failure, hypertension, history of CAD, history of CVA, mild aortic stenosis, paroxysmal atrial fibrillation, moderate protein calorie malnutrition, slow transit constipation, vitamin B-12 and thiamine deficiency, history of esophageal dysphagia, GERD, gout, osteoarthritis, primary open-angle glaucoma, polyneuropathy, rheumatoid arthritis involving multiple sites with positive rheumatoid factor, depression, history of C. difficile, history of COVID, history of fever of unknown origin admitted with abnormal labwork at rehab. AMS UTI Discussed with on admission, pt not currently at her baseline. Notes fever of 102 day of admission at [facility] rehab UA suggestive of infection, urine Cx with no significant growth. Chest XRAY with no acute changes CT chest with no acute findings in the chest Biofire completely negative Procal elevated at 2.31, lactate wnl Blood cx x2 with NGTD On Cefepime and empiric doxycycline originally. Doxycycline discontinued, cefepime transitioned to po cefdinir to start in AM. Pancytopenia Pt with WBC 1.07K, Hgb 7.7, platelets 118K on admission Tick borne testing r/o- pt states she took a tick out off her cat about a month ago Biofire as above to rule out a viral suppression cause- negative Peripheral smear ordered, SPEP recommended Hematology consult- appreciate recs. Empiric doxycycline for possible tick borne cause discontinued. Transfuse hgb as needed if <7, currently stable >8 Hypomagnesemia Mag 1.6 on admission Replete as needed Hyponatremia Sodium 129 on admission Chronic Hx, Known to nephrology service Nephrology consult placed Currently trending back up, currently 131 Elevated trop Atrial fibrillation Trops elevated at 25.3, downtrended to 23.2 EKG showed atrial fibrillation On metoprolol succinate 50mg BID, not on anticoagulation Doubt ACS Continue other home meds as ordered CODE STATUS: DNR/DNI after discussion with pt's DVT prophylaxis: Deferred in setting of thrombocytopenia/anemia Diet: HH/minced and moist Dispo: PT/OT Admission and Anticipated Discharge Date Admission Date: September 29, 2023 Subjective Pt alert and oriented x2 today. Was concerned about wetting the bed, notes she has incontinence. Per nursing she waxes and wanes and pulls out the purwick. Nursing putting her in briefs. Review of Systems Review of Systems: All systems reviewed & are unremarkable except as noted in Subjective Physical Exam Physical Exam: General: Alert, orientedx2. No acute distress Psych: Appropriate mood and affect Neuro: difficulty with movements in the bed HEENT: NC/AT CV: Irregular rate and rhythm Resp: no increased effort of breathing Abdomen: Soft Extremities: edema in lower extremities bilaterally. Results & Data Results & Data Vital Signs (Past 12 Hours) Vital Signs Temp Pulse Pulse Resp BP Pulse Ox O2 Del Method 10/01/23 08:55 36.6 C 94 H 20 169/69 H 96 Room Air 10/01/23 07:50 36.7 C 67 16 159/70 H 95 Room Air 10/01/23 07:40 67 10/01/23 07:28 Room Air 10/01/23 03:25 36.6 C 56 L 18 183/79 H 98 Room Air 10/01/23 00:00 61 09/30/23 23:34 36.9 C 57 L 20 162/83 H 98 Room Air
--- NOTE | 2023-10-01 11:53 | Nephrology Progress Note ---
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 also being covered for rickettsial diseases for now -cont abtx for Rickettsia as indicated pending results; would stop cefepime Admission and Anticipated Discharge Date Admission Date: September 29, 2023 Subjective No interval events clinically; feels "blah" today; c/o band of pain across her mid abdomen; no bm today; concerned she may have decrease duop; no dysuria, no urgency/frequency. no sob Review of Systems 2 Review of Systems: All systems reviewed & are unremarkable except as noted in Subjective Physical Exam 2 Constitutional: well developed, well nourished, + physical limitations, + frail appearing and cooperative; no acute distress Eyes: EOM intact bilaterally ENMT: Ears: no external ear abnormality Nose: no external nose abnormality Mouth: + dry oral mucous membranes Neck: no nuchal rigidity Respiratory: normal respiratory effort Auscultation: + diminished lung sounds Cardiovascular: Rate/Rhythm: regular rate and regular rhythm Extremities: n o edema Gastrointestinal (Abdomen): Inspection/Auscultation: normal bowel sounds P ercussion/Palpation: abdomen soft; abdomen nontender Musculoskeletal: Extremities: strength 5/5 throughout Skin: no rashes, warm and dry Psychiatric: Orientation: alert, oriented to person and oriented to place Results & Data Vital Signs (Past 12 Hours) Vital Signs Temp Pulse Pulse Resp BP Pulse Ox O2 Del Method 10/01/23 08:55 36.6 C 94 H 20 169/69 H 96 Room Air 10/01/23 07:50 36.7 C 67 16 159/70 H 95 Room Air 10/01/23 07:40 67 10/01/23 07:28 Room Air 10/01/23 03:25 36.6 C 56 L 18 183/79 H 98 Room Air 10/01/23 00:00 61 Laboratory Results 10/01/23 07:40 10/01/23 07:40
[2023-10-01] MEDS: ACETAMINOPHEN 325 MG TAB PO PRN (12:54)
[2023-10-01] MEDS: LATANOPROST 0.005% OP SOLN 2.5 ML BTL OPB SCH (20:34)
[2023-10-01] MEDS: ROSUVASTATIN CALCIUM 20 MG TAB PO SCH (20:34)
[2023-10-01] MEDS: FILGRASTIM 300 MCG/ML VIAL SQ SCH (22:32)
[2023-10-02 05:31] LABS: Appearance Urine Clear (Clear); Bacteria Urine Automated 1+ (Negative); Bilirubin Urine Negative (Negative); Blood Urine Negative (Negative); Cast Urine Automated 0 /lpf (0-5); Color Urine Yellow; Glucose Urine UA Negative (Negative); Ketones Urine Negative (Negative); Leukocyte Esterase Urine Negative (Negative); Nitrite Urine Negative (Negative); Protein Urine 1+ (Negative); RBC Urine Automated 0-4 /hpf (0-4); Specific Gravity Urine 1.012 (1.000-1.030); Urobilinogen Urine Negative (Negative)
[2023-10-02] MEDS: ISOSORBIDE DINITRATE 10 MG TAB PO SCH ×2 (06:18→08:10)
[2023-10-02] MEDS: MONTELUKAST SODIUM 10 MG TABLET PO SCH (08:10)
[2023-10-02] MEDS: CEROVITE ADV FORMULA TAB PO SCH (08:10)
[2023-10-02] MEDS: OXYBUTYNIN CHLORIDE XL 5 MG TABCR PO SCH (08:10)
[2023-10-02] MEDS: DULoxetine HCL 60 MG CAP PO SCH (08:11)
[2023-10-02] MEDS: guaiFENesin 600 MG TABCR PO SCH ×2 (08:11→20:37)
[2023-10-02] MEDS: METOPROLOL SUCC 50MG EXT REL TAB PO SCH ×2 (08:11→20:37)
[2023-10-02] MEDS: FOLIC ACID 1 MG TAB PO SCH (08:11)
[2023-10-02] MEDS: PANTOprazole 40 MG TAB PO SCH ×2 (08:11→20:37)
[2023-10-02] MEDS: CLOPIDOGREL BISULFATE 75 MG TAB PO SCH (08:11)
[2023-10-02] MEDS: ADVANCED PROBIOTIC 1250 MG CAPSULE PO SCH ×2 (08:11→20:38)
[2023-10-02] MEDS: predniSONE 5 MG TAB PO SCH (08:12)
[2023-10-02] MEDS: MULTIVITAMIN TAB PO SCH (08:12)
[2023-10-02] MEDS: THIAMINE HCL 50 MG TABLET PO SCH (08:12)
[2023-10-02] MEDS: CHOLECALCIFEROL 25 MCG (1000 UNITS) TAB PO SCH (08:12)
[2023-10-02] MEDS: CYANOCOBALAMIN (B-12) 500 MCG TABLET PO SCH (08:12)
[2023-10-02] MEDS: FLUTICASONE/VILANTEROL 200/25MCG 14 PUFFS/INHALER INH SCH (08:13)
[2023-10-02] MEDS ORDERED: IRON SUCROSE 200 MG in 0.9 % SODIUM CHLORIDE 100 ML IV ONE (08:25)
--- NOTE | 2023-10-02 08:25 | Hospitalist Progress Note ---
Date of Service October 02, 2023 Assessment & Plan (1) Pancytopenia: (2) Complicated UTI (urinary tract infection): Plan 75-year-old female with type 2 diabetes, CKD stage III, hyperlipidemia, chronic drug-induced interstitial lung disorders, asthma mild persistent, COPD, chronic right-sided heart failure, hypertension, history of CAD, history of CVA, mild aortic stenosis, paroxysmal atrial fibrillation, moderate protein calorie malnutrition, slow transit constipation, vitamin B-12 and thiamine deficiency, history of esophageal dysphagia, GERD, gout, osteoarthritis, primary open-angle glaucoma, polyneuropathy, rheumatoid arthritis involving multiple sites with positive rheumatoid factor, depression, history of C. difficile, history of COVID, history of fever of unknown origin admitted with abnormal labwork at rehab. AMS UTI Discussed with on admission, pt not currently at her baseline. Notes fever of 102 day of admission at [facility] rehab UA suggestive of infection, urine Cx with several organisms, will repeat co llection Chest XRAY with no acute changes CT chest with no acute findings in the chest Biofire negative Procal elevated at 2.31, lactate wnl Blood cx x2 with NGTD On Cefepime and empiric doxycycline originally. Doxycycline discontinued, cefepime transitioned to po cefdinir to start today. however temp slightly elevated and noted to be somewhat confused, given her neutropenia, will cont. with cefepime, doxy as previously Pancytopenia Pt with WBC 1.07K, Hgb 7.7, platelets 118K on admission Tick borne testing r/o- pt states she took a tick out off her cat about a month ago Biofire as above to rule out a viral suppression cause- negative Peripheral smear ordered, SPEP recommended Hematology consult- appreciate recs. - discussed today - received iv iron yes terday and will today as well, received filgastrim Empiric doxycycline for possible tick borne cause discontinued. Transfuse hgb as needed if <7, currently stable >8 Hypomagnesemia Replete and monitor Hyponatremia Sodium 129 on admission Chronic Hx, Known to nephrology service Nephrology consult placed Currently trending back up, currently 131 Elevated trop Atrial fibrillation Trops elevated at 25.3, downtrended to 23.2 EKG showed atrial fibrillation On metoprolol succinate 50mg BID, not on anticoagulation Doubt ACS Continue other home meds as ordered CODE STATUS: DNR/DNI after discussion with pt's DVT prophylaxis: Deferred in setting of thrombocytopenia/anemia Diet: HH/minced and moist Dispo: PT/OT Admission and Anticipated Discharge Date Admission Date: September 29, 2023 Subjective Pt seen in follow up of pancytopenia Sitting up in bed in NAD able to answer simple questions appropriately, asking for eye drops , feels like she has dry itchy eye Discussed w/ Dr. Scales (hem) this AM - will give IV iron today (received one yesterday) Urine cultx repeated Review of Systems Review of Systems: All systems reviewed & are unremarkable except as noted in Subjective Physical Exam Physical Exam: General: thin elderly F , + chronically ill appearing, in NAD Psych: Appropriate mood and affect Neuro: awake, alert, able to answer simple questions, moves extremities HEENT: NC/AT CV: Irregular rate and rhythm Resp: CTAB, no increased effort of breathing Abdomen: Soft Extremities: edema in lower extremities bilaterally. Results & Data Results & Data Vital Signs (Past 12 Hours) Vital Signs Temp Pulse Pulse Resp BP Pulse Ox O2 Del Method 10/02/23 07:46 36.6 C 73 16 130/56 L 95 Room Air 10/02/23 03:04 36.8 C 66 18 153/62 H 97 Room Air 10/01/23 23:32 36.6 C 61 18 159/65 H 97 Room Air 10/01/23 22:27 63 10/01/23 21:00 Room Air Laboratory Results 10/02/23 10/02/23 Range/Units 08:13 05:14 WBC 1.40 L (4.8-10.8) K/ul RBC 3.06 L (4.20-5.40) M/uL Hgb 8.5 L (12.0-16.0) g/dl Hct 24.6 L (37.0-47.0) % MCV 80.4 (80.0-100.0) fL MCH 27.8 (25.0-34.0) pg MCHC 34.6 (32.0-36.0) g/dL RDW Std Deviation 49.4 H (36.4-46.3) fL RDW Coeff of Xochitl 17.0 H (11.5-14.5) % Plt Count 163 (130-400) K/uL MPV 8.7 L (9.4-12.4) fL Neutrophils % (Manual) 10 % Lymphocytes % (Manual) 19 % Monocytes % (Manual) 12 % Basophils % (Manual) 1 % Metamyelocytes % (Man) 1 % Neutrophils # (Manual) 0.14 L (1.40-6.50) K/uL Total Absolute Neuts 0.14 L* (1.4-6.5) K/uL Lymphocytes # (Manual) 0.27 L (1.2-3.4) K/uL Total Abs Lymphocytes 1.06 L (1.2-3.4) K/uL Monocytes # (Manual) 0.17 (0.11-0.59) K/uL Basophils # (Manual) 0.01 (0-0.2) K/uL Metamyelocytes # (Man) 0.01 H (0-0) K/uL Large Granular Lymphs 57 % # Lrg Granular Lymphs 0.80 K/uL Sodium 131 L (136-145) mmol/L Potassium 3.6 (3.5-5.1) mmol/L Chloride 102 (98-107) mmol/L Carbon Dioxide 20 L (21-32) mmol/L Anion Gap 9 (3-11) BUN 15 (6-23) mg/dl Creatinine 0.91 (0.6-1.2) mg/dl Est Cr Clr Drug Dosing 41.0 ml/min Est GFR ( Amer) 71.0 ml/min Est GFR (Non-Af Amer) 61.3 ml/min BUN/Creatinine Ratio 16.5 (10-20) Glucose 72 (70-99(Fasting)) mg/dl Calcium 8.0 L (8.6-10.3) mg/dl Phosphorus 1.8 L (2.5-4.9) mg/dl Magnesium 1.6 L (1.7-2.4) mg/dl Iron 99 (35-150) mcg/dl Total Bilirubin 0.8 (0.2-1.0) mg/dl AST 42 H (13-39) U/L ALT 26 (7-52) U/L Alkaline Phosphatase 103 (34-104) U/L Total Protein 5.7 L (6.0-8.3) gm/dl Albumin 3.1 L (3.4-5.0) gm/dl Globulin 2.6 (2.5-4.0) gm/dl Albumin/Globulin Ratio 1.2 (0.9-2) Urine Color Yellow Urine Appearance Clear (Clear) Urine pH 6.0 (4.5-7.5) Ur Specific [place] 1.012 (1.000-1.030) Urine Protein 1+ H (Negative) Urine Glucose (UA) Negative (Negative) Urine Ketones Negative (Negative) Urine Blood Negative (Negative) Urine Nitrite Negative (Negative) Urine Bilirubin Negative (Negative) Urine Urobilinogen Negative (Negative) Ur Leukocyte Esterase Negative (Negative) Urine WBC (Auto) 1-5 (0-5) /hpf Urine RBC (Auto) 0-4 (0-4) /hpf U Hyaline Cast (Auto) 0 (0-5) /lpf U Epithel Cells (Auto) 10-20 H (0-5) /lpf Urine Bacteria (Auto) 1+ H (Negative) Urine Osmolality 335 L (500-800) mOsm/kg Ur Random Sodium 97 mmol/L A. phagocytophilum DNA Pending Medications Administered Current Inpatient Medications Acetaminophen (Acetaminophen 325 Mg Tab) 650 mg PO Q4 PRN PRN Reason: Fever Or Pain Stop: 10/29/23 21:30 Last Admin: 10/01/23 12:54 Dose: 650 mg Albuterol (Albuterol Hfa 8 Gm Inhaler) 2 puffs INH Q4 PRN PRN Reason: Shortness Of Breath Stop: 10/29/23 21:30 Albuterol (Albuterol 0.083% Nebu Soln 3 Ml Vial) 2.5 mg INH QIDR PRN; Protocol PRN Reason: Shortness Of Breath Or Wheezin Stop: 10/29/23 21:30 Cefdinir (Cefdinir 300 Mg Cap) 300 mg PO BID [facility]; Protocol Stop: 10/12/23 08:59 Clopidogrel Bisulfate (Clopidogrel Bisulfate 75 Mg Tab) 75 mg PO QAM [facility] Stop: 10/30/23 08:59 Last Admin: 10/01/23 09:24 Dose: 75 mg Cyanocobalamin (Cyanocobalamin (B-12) 500 Mcg Tablet) 2,000 mcg PO MoWeFr@0900 [facility] Stop: 10/30/23 08:59 Last Admin: 09/30/23 08:19 Dose: 2,000 mcg Duloxetine HCl (Duloxetine Hcl 60 Mg Cap) 60 mg PO QAM [facility] Stop: 10/30/23 08:59 Last Admin: 10/01/23 09:25 Dose: 60 mg Filgrastim (Filgrastim 300 Mcg/Ml Vial) 300 mcg SQ DAILY [facility] Stop: 10/03/23 19:44 Last Admin: 10/01/23 22:32 Dose: 300 mcg Fluticasone/Vilanterol (Fluticasone/Vilanterol 200/25mcg 14 Puffs/Inhaler) 1 puffs INH DAILY [facility] Stop: 10/30/23 08:59 Last Admin: 10/01/23 09:36 Dose: 1 puffs Folic Acid (Folic Acid 1 Mg Tab) 1 mg PO QAM [facility] Stop: 10/30/23 08:59 Last Admin: 10/01/23 09:25 Dose: 1 mg Guaifenesin (Guaifenesin 600 Mg Tabcr) 600 mg PO Q12 [facility] Stop: 10/29/23 21:44 Last Admin: 10/01/23 20:34 Dose: 600 mg Isosorbide Dinitrate (Isosorbide Dinitrate 10 Mg Tab) 10 mg PO BID@0700,1200 [facility] Stop: 10/30/23 06:59 Last Admin: 10/02/23 06:18 Dose: 10 mg Lactobacillus Acidophilus (Advanced Probiotic 1250 Mg Capsule) 1 cap PO BID [facility] Stop: 10/29/23 21:44 Last Admin: 10/01/23 20:34 Dose: 1 cap Latanoprost (Latanoprost 0.005% Op Soln 2.5 Ml Btl) 1 drops OPB HS [facility] Stop: 10/29/23 21:44 Last Admin: 10/01/23 20:34 Dose: 1 drops Metoprolol Succinate (Metoprolol Succ 50mg Ext Rel Tab) 50 mg PO BID [facility] Stop: 10/29/23 21:44 Last Admin: 10/01/23 20:34 Dose: 50 mg Miconazole Nitrate (Miconazole Nitrate Powder 85 Gm) 1 appln TOP BID [facility] Stop: 10/29/23 21:30 Last Admin: 10/01/23 20:36 Dose: 1 appln Montelukast Sodium (Montelukast Sodium 10 Mg Tablet) 10 mg PO QAM [facility] Stop: 10/30/23 08:59 Last Admin: 10/01/23 09:30 Dose: 10 mg Multivitamins ([facility]itamin Tab) [facility]: 10/30/23 08:59 Last Admin: 10/01/23 09:31 Dose: 1 tab Multivitamins/Minerals (Cerovite Adv Formula Tab) [facility] Stop: 10/30/23 08:59 Last Admin: 10/01/23 09:31 Dose: 1 tab Oxybutynin Chloride (Oxybutynin Chloride Xl 5 Mg Tabcr) 10 mg PO [facility] Stop: 10/30/23 08:59 Last Admin: 10/01/23 09:32 Dose: 10 mg Pantoprazole Sodium (Pantoprazole 40 Mg Tab) 40 mg PO BID [facility] Stop: 10/29/23 21:44 Last Admin: 10/01/23 20:34 Dose: 40 mg Prednisone (Prednisone 5 Mg Tab) 5 mg PO [facility] Stop: 10/30/23 08:59 Last Admin: 10/01/23 09:34 Dose: 5 mg Rosuvastatin Calcium (Rosuvastatin Calcium 20 Mg Tab) 20 mg PO [facility] Stop: 10/29/23 21:44 Last Admin: 10/01/23 20:34 Dose: 20 mg Silver Sulfadiazine (Silver Sulfadiazine 1% Cr 50 Gm Jar) 1 appln TOP UD PRN PRN Reason: DRESSING CHANGES Stop: 10/29/23 21:30 Thiamine HCl (Thiamine Hcl 50 Mg Tablet) 50 mg PO [facility] Stop: 10/30/23 08:59 Last Admin: 10/01/23 09:34 Dose: 50 mg Vitamin D (Cholecalciferol 1,000 Units 25 Mcg Tab) 2,000 units PO [facility] Stop: 10/30/23 08:59 Last Admin: 10/01/23 09:21 Dose: 2,000 units
[2023-10-02] MEDS: FILGRASTIM 300 MCG/ML VIAL SQ SCH (08:30)
[2023-10-02] MEDS: MICONAZOLE NITRATE POWDER 85 GM TOP SCH ×2 (08:30→20:39)
[2023-10-02] MEDS ORDERED: CEFDINIR 300 MG CAP PO SCH (09:00)
[2023-10-02 09:02] LABS: Albumin Level 3.1 gm/dl (3.4-5.0); Bilirubin,Total 0.8 mg/dl (0.2-1.0); Magnesium 1.6 mg/dl (1.7-2.4); Potassium 3.6 mmol/L (3.5-5.1)
[2023-10-02 09:08] LABS: Albumin Globulin Ratio 1.2 (0.9-2); BUN Creatinine Ratio 16.5 (10-20); Est GFR (Non-African American) 61.3 ml/min; Globulin 2.6 gm/dl (2.5-4.0); Phosphorus 1.8 mg/dl (2.5-4.9); Total Protein 5.7 gm/dl (6.0-8.3)
[2023-10-02 09:13] LABS: Hematocrit (blood only) 24.6 % (37.0-47.0); Hemoglobin 8.5 g/dl (12.0-16.0); Mean Corpuscular Hemoglobin 27.8 pg (25.0-34.0); Mean Corpuscular Hgb Conc 34.6 g/dL (32.0-36.0); Mean Corpuscular Volume 80.4 fL (80.0-100.0); Mean Platelet Volume 8.7 fL (9.4-12.4); Platelet Count 163 K/uL (130-400); RDW Standard Deviation 49.4 fL (36.4-46.3); Red Blood Count 3.06 M/uL (4.20-5.40)
[2023-10-02 10:20] LABS: ALC (manual) 1.06 K/uL (1.2-3.4); ANC (manual) 0.14 K/uL (1.4-6.5); Basophils # (manual) 0.01 K/uL (0-0.2); Basophils % (manual) 1 %; Large Granular Lymph % (manual) 57 %; Lymphocytes # (manual) 0.27 K/uL (1.2-3.4); Lymphocytes % (manual) 19 %; Metamyelocytes # (manual) 0.01 K/uL (0-0); Metamyelocytes % (manual) 1 %; Monocytes # (manual) 0.17 K/uL (0.11-0.59); Monocytes % (manual) 12 %; Neutrophils # (manual) 0.14 K/uL (1.40-6.50); Neutrophils % (manual) 10 %
--- NOTE | 2023-10-02 10:46 | Nephrology Progress Note ---
Date of Service October 02, 2023 Assessment & Plan (1) Electrolyte and fluid disorder: Plan: stable mild hyponatremia (presenting sodium 129 up to 131 on 09/30), with today mild hypocalcemia, and again/recurrent low phosphate and magnesium levels. some delay in getting urine sodium studies which compromises their already limited utility > c/w low solute diet/ poor po intake -goal sNa for am is wnl at most -for now no fluid limit needed -daily bmp, mag, phos -encourage po intake > consulted RD for more protein intake, more mag and phos rich foods Did update hospitalist about ? change in MS, in ability to express herself. Care coordinated w/ Dr Phillip. Admission and Anticipated Discharge Date Admission Date: September 29, 2023 Subjective at bedside; pt somewhat confused; limits ROS b/c she can't find words; temp climbing; does tell me abd feels better and back a bit sore Review of Systems 2 Review of Systems: Unobtainable due to cognitive status (limited not unobtainable) Physical Exam 2 Constitutional: well developed, well nourished, + physical limitations, + frail appearing and cooperative; no acute distress Eyes: EOM intact bilaterally ENMT: Ears: no external ear abnormality Nose: no external nose abnormality Mouth: + dry oral mucous membranes Neck: no nuchal rigidity Respiratory: normal respiratory effort Auscultation: + diminished lung sounds Cardiovascular: Rate/Rhythm: regular rate and regular rhythm Extremities: n o edema Gastrointestinal (Abdomen): Inspection/Auscultation: normal bowel sounds P ercussion/Palpation: abdomen soft; abdomen nontender Musculoskeletal: Extremities: strength 5/5 throughout Skin: no rashes, warm and dry Neurologic: generalized weakness, can't speak as she wishes to above Psychiatric: Orientation: alert and oriented to person Results & Data Vital Signs (Past 12 Hours) Vital Signs Temp Pulse Pulse Resp BP Pulse Ox O2 Del Method 10/02/23 09:09 62 10/02/23 07:46 36.6 C 73 16 130/56 L 95 Room Air 10/02/23 03:04 36.8 C 66 18 153/62 H 97 Room Air 10/01/23 23:32 36.6 C 61 18 159/65 H 97 Room Air Laboratory Results 10/02/23 08:13 10/02/23 08:13
[2023-10-02] MEDS ORDERED: MAGNESIUM SULFATE / D5W 1 GM/100 ML BAG IV ONE (11:38)
[2023-10-02] MEDS ORDERED: POTASSIUM PHOS 3 MMOL/1 ML INFUSION IV STA (11:38)
[2023-10-02] MEDS ORDERED: POTASSIUM PHOSPHATE 9 MMOL in SODIUM CHLORIDE 0.9% 250 ML IV ONE (11:45)
[2023-10-02 11:47] LABS: Free Kappa 54.9 mg/L (3.3-19.4); Free Kappa/Lambda Ratio 0.97 (0.26-1.65); Free Lambda 56.7 mg/L (5.7-26.3)
[2023-10-02] MEDS: ACETAMINOPHEN 325 MG TAB PO PRN (12:03)
[2023-10-02] MEDS: CEFEPIME 2,000 MG in SYRINGE 0 ML IV SCH (15:00)
[2023-10-02] MEDS: DOXYCYCLINE HYCLATE 100 MG in DEXTROSE 5% MINI-B 100 ML IV SCH (15:02)
[2023-10-02] MEDS: ARTIFICIAL TEARS OPB SCH ×2 (18:35→20:38)
--- NOTE | 2023-10-02 18:43 | Electrocardiogram Report ---
Test Reason : Blood Pressure : / mmHG Vent. Rate : 074 BPM Atrial Rate : 000 BPM P-R Int : 202 ms QRS Dur : 124 ms QT Int : 414 ms P-R-T Axes : 000 011 242 degrees QTc Int : 459 ms Sinus rhythm with occasional Premature atrial complexes Right bundle branch block T wave abnormality, consider anterior ischemia Abnormal ECG When compared with ECG of 07-SEP-2023 05:08, Questionable change in QRS axis Confirmed by Pawan Mcgowan ([id number]) on 10/02/2023 6:43:17 PM Referred By: REFERRED SELF Confirmed By:Pawan Mcgowan
[2023-10-02] MEDS: ROSUVASTATIN CALCIUM 20 MG TAB PO SCH (20:38)
[2023-10-02] MEDS: LATANOPROST 0.005% OP SOLN 2.5 ML BTL OPB SCH (20:38)
[2023-10-03] MEDS: CEFEPIME 2,000 MG in SYRINGE 0 ML IV SCH (01:09)
[2023-10-03] MEDS: DOXYCYCLINE HYCLATE 100 MG in DEXTROSE 5% MINI-B 100 ML IV SCH ×2 (01:17→15:47)
[2023-10-03] MEDS: ISOSORBIDE DINITRATE 10 MG TAB PO SCH ×3 (06:10→13:13)
[2023-10-03 07:02] LABS: Hematocrit (blood only) 23.5 % (37.0-47.0); Hemoglobin 8.2 g/dl (12.0-16.0); Mean Corpuscular Hemoglobin 28.1 pg (25.0-34.0); Mean Corpuscular Hgb Conc 34.9 g/dL (32.0-36.0); Mean Corpuscular Volume 80.5 fL (80.0-100.0); Mean Platelet Volume 8.7 fL (9.4-12.4); Platelet Count 151 K/uL (130-400); RDW Coefficient of Variation 16.9 % (11.5-14.5); RDW Standard Deviation 49.1 fL (36.4-46.3); Red Blood Count 2.92 M/uL (4.20-5.40); White Blood Count 1.29 K/ul (4.8-10.8)
[2023-10-03 07:03] LABS: BUN Creatinine Ratio 14.4 (10-20); Calcium 8.2 mg/dl (8.6-10.3); Creatinine Clr Calc Pharmacy 38.7 ml/min; Est GFR (African American) 65.8 ml/min; Est GFR (Non-African American) 56.7 ml/min; Potassium 3.1 mmol/L (3.5-5.1)
[2023-10-03 07:26] LABS: RBC Morphology Unremarkable
[2023-10-03 07:29] LABS: Albumin Globulin Ratio 1.2 (0.9-2); Albumin Level 2.9 gm/dl (3.4-5.0); Bilirubin,Total 0.7 mg/dl (0.2-1.0); Globulin 2.4 gm/dl (2.5-4.0); Magnesium 1.7 mg/dl (1.7-2.4); Phosphorus 1.5 mg/dl (2.5-4.9); Total Protein 5.3 gm/dl (6.0-8.3)
[2023-10-03 07:30] LABS: Basophils # (auto) 0.01 K/uL (0.00-0.20); Basophils % (auto) 0.8 %; Immature Granulocytes # (auto) 0.03 K/uL (0.01-0.20); Immature Granulocytes % (auto) 2.3 %; Lymphocytes # (auto) 0.84 K/uL (1.20-3.40); Lymphocytes % (auto) 65.1 %; Monocytes # (auto) 0.26 K/uL (0.11-0.59); Monocytes % (auto) 20.2 %; Neutrophils # (auto) 0.15 K/uL (1.40-6.50); Neutrophils % (auto) 11.6 %
[2023-10-03] MEDS ORDERED: POTASSIUM PHOS 3 MMOL/1 ML INFUSION IV STA (07:43)
[2023-10-03] MEDS ORDERED: POTASSIUM PHOSPHATE 21 MMOL in SODIUM CHLORIDE 0.9% 500 ML IV ONE (08:00)
[2023-10-03] MEDS ORDERED: POTASSIUM CHLORIDE PWD 20 MEQ PACK PO SCH (09:00)
[2023-10-03] MEDS ORDERED: POT PHOSPHATE MONOBASIC W/ SOD TAB PO SCH (09:00)
[2023-10-03] MEDS ORDERED: OPTIRAY 320 125ml IV ONE (09:19)
--- NOTE | 2023-10-03 09:32 | Hospitalist Progress Note ---
Date of Service October 03, 2023 Assessment & Plan (1) Pancytopenia: (2) Complicated UTI (urinary tract infection): Plan 75-year-old female with type 2 diabetes, CKD stage III, hyperlipidemia, chronic drug-induced interstitial lung disorders, asthma mild persistent, COPD, chronic right-sided heart failure, hypertension, history of CAD, history of CVA, mild aortic stenosis, paroxysmal atrial fibrillation, moderate protein calorie malnutrition, slow transit constipation, vitamin B-12 and thiamine deficiency, history of esophageal dysphagia, GERD, gout, osteoarthritis, primary open-angle glaucoma, polyneuropathy, rheumatoid arthritis involving multiple sites with positive rheumatoid factor, depression, history of C. difficile, history of COVID, history of fever of unknown origin admitted with abnormal labwork at rehab. AMS UTI Discussed with on admission, pt not at her baseline. Notes fever of 102 day of admission at [facility] rehab UA suggestive of infection, urine Cx with several organisms, will repeat collection Chest XRAY with no acute changes CT chest with no acute findings in the chest Biofire negative Procal elevated at 2.31, lactate wnl Blood cx x2 with NGTD On Cefepime and empiric doxycycline originally. Doxycycline, cefepime. switch cefepime to ertapenem repeat blood cultx, urine cultx Pancytopenia Pt with WBC 1.07K, Hgb 7.7, platelets 118K on admission Tick borne testing r/o- pt states she took a tick out off her cat about a month ago Biofire as above to rule out a viral suppression cause- negative Peripheral smear ordered, SPEP recommended Hematology consult- appreciate recs. - received iv iron x2 and neupogen x2 Empiric doxycycline for possible tick borne cause discontinued. Transfuse hgb as needed if <7, currently stable >8 AMS - change in mental status, acute on 10/03/2023 AM Stroke alert called CT head, CTA head and neck negat. discussed w/ [facility] stroke neurologist, not likely cva, can obtain routine brain mri and consult inpt neurology for further follow up. Hypomagnesemia Replete and monitor Hyponatremia Sodium 129 on admission Chronic Hx, Known to nephrology service Nephrology consult placed Currently trending back up, currently 131 Elevated trop Atrial fibrillation Trops elevated at 25.3, downtrended to 23.2 EKG showed atrial fibrillation On metoprolol succinate 50mg BID, not on anticoagulation Doubt ACS 10/03 AMS, abnormal ecg, will obtain troponin, and echo and will discuss w/ cardiology. recent hx of takotsubo Continue other home meds as ordered for now CODE STATUS: DNR/DNI after discussion with pt's DVT prophylaxis: Deferred in setting of thrombocytopenia/anemia Diet: HH/minced and moist Dispo: transfer to PCU Admission and Anticipated Discharge Date Admission Date: September 29, 2023 Subjective Pt seen in follow up of pancytopenia hx of pAfib. Liver mass - not yet further investigated. hx of RA. Hx of prior CVA This morning, change in mental status. Patient is hardly arousable, does not open her eyes, does not follow commands. Not answering any questions. Patient w/history of previous CVA Stroke alert called CT head, CTA head and neck negat. discussed w/ [facility] stroke neurologist, not likely cva, can obtain routine brain mri and consult inpt neurology for further follow up. Pt received iv iron , and neupogen yesterday for pancyptopenia. Hematology consulted. Urine cultx repeated yesterday also ordered blood cultx, troponin, will obtain echo as abnorma ecg and recent hx of takotsubo. switch abx, pharm contacted Review of Systems Review of Systems: Unobtainable due to cognitive status Physical Exam Physical Exam: General: thin elderly F , + chronically ill appearing, not responding much to voice or tactile stimuli. She is moving her head, and somewhat moving extremities but not opening her eyes or following commands. Neuro: not responding much to voice or tactile stimuli. She is moving her head, and somewhat moving extremities but not opening her eyes or following commands. HEENT: NC/AT CV: Irregular rate and rhythm Resp: CTAB, no increased effort of breathing Abdomen: Soft Extremities: no edema in lower extremities Results & Data Results & Data Vital Signs (Past 12 Hours) Vital Signs Temp Pulse Pulse Resp BP BP Pulse Ox 10/03/23 08:07 37.1 C 82 18 146/69 H 99 10/03/23 07:51 84 10/03/23 04:03 37.7 C H 91 H 18 150/64 H 94 10/02/23 23:59 37.1 C 87 18 148/82 H 96 10/02/23 22:27 87 O2 Del Method 01/20/24 08:07 Room Air 10/03/23 07:51 10/03/23 04:03 Room Air 10/02/23 23:59 Room Air 10/02/23 22:27 Laboratory Results 10/03/23 10/03/23 10/02/23 Range/Units 09:10 06:13 08:13 WBC 1.29 L (4.8-10.8) K/ul RBC 2.92 L (4.20-5.40) M/uL Hgb 8.2 L (12.0-16.0) g/dl Hct 23.5 L (37.0-47.0) % MCV 80.5 (80.0-100.0) fL MCH 28.1 (25.0-34.0) pg MCHC 34.9 (32.0-36.0) g/dL RDW Std Deviation 49.1 H (36.4-46.3) fL RDW Coeff of Xochitl 16.9 H (11.5-14.5) % Plt Count 151 (130-400) K/uL MPV 8.7 L (9.4-12.4) fL Immature Gran % (Auto) 2.3 % Neut % (Auto) 11.6 % Lymph % (Auto) 65.1 % [place] % (Auto) 20.2 % Eos % (Auto) 0.0 % Baso % (Auto) 0.8 % Neut # (Auto) 0.15 L* (1.40-6.50) K/uL Lymph # (Auto) 0.84 L (1.20-3.40) K/uL [place] # (Auto) 0.26 (0.11-0.59) K/uL Eos # (Auto) 0.00 (0.00-0.50) K/uL Baso # (Auto) 0.01 (0.00-0.20) K/uL Immature Gran # (Auto) 0.03 (0.01-0.20) K/uL Neutrophils % (Manual) 10 % Lymphocytes % (Manual) 19 % Monocytes % (Manual) 12 % Basophils % (Manual) 1 % Metamyelocytes % (Man) 1 % Neutrophils # (Manual) 0.14 L (1.40-6.50) K/uL Total Absolute Neuts 0.14 L* (1.4-6.5) K/uL Lymphocytes # (Manual) 0.27 L (1.2-3.4) K/uL Total Abs Lymphocytes 1.06 L (1.2-3.4) K/uL Monocytes # (Manual) 0.17 (0.11-0.59) K/uL Basophils # (Manual) 0.01 (0-0.2) K/uL Metamyelocytes # (Man) 0.01 H (0-0) K/uL Large Granular Lymphs 57 % # Lrg Granular Lymphs 0.80 K/uL RBC Morphology Unremarkable Sodium 130 L (136-145) mmol/L Potassium 3.1 L (3.5-5.1) mmol/L Chloride 101 (98-107) mmol/L Carbon Dioxide 19 L (21-32) mmol/L Anion Gap 10 (3-11) BUN 14 (6-23) mg/dl Creatinine 0.97 (0.6-1.2) mg/dl Est Cr Clr Drug Dosing 38.7 ml/min Est GFR ( Amer) 65.8 ml/min Est GFR (Non-Af Amer) 56.7 ml/min BUN/Creatinine Ratio 14.4 (10-20) Glucose 73 (70-99(Fasting)) mg/dl POC Glucose 78 (70-99) mg/dl Calcium 8.2 L (8.6-10.3) mg/dl Phosphorus 1.5 L* (2.5-4.9) mg/dl Magnesium 1.7 (1.7-2.4) mg/dl Total Bilirubin 0.7 (0.2-1.0) mg/dl AST 42 H (13-39) U/L ALT 23 (7-52) U/L Alkaline Phosphatase 104 (34-104) U/L Total Protein 5.3 L (6.0-8.3) gm/dl Albumin 2.9 L (3.4-5.0) gm/dl Globulin 2.4 L (2.5-4.0) gm/dl Albumin/Globulin Ratio 1.2 (0.9-2) Free [place] LC, Quant (3.3-19.4) mg/L Free Lambda LC, Quant (5.7-26.3) mg/L Free [place]/Lambda Ratio (0.26-1.65) 09/30/23 Range/Units 16:48 WBC (4.8-10.8) K/ul RBC (4.20-5.40) M/uL Hgb (12.0-16.0) g/dl Hct (37.0-47.0) % MCV (80.0-100.0) fL MCH (25.0-34.0) pg MCHC (32.0-36.0) g/dL RDW Std Deviation (36.4-46.3) fL RDW Coeff of Xochitl (11.5-14.5) % Plt Count (130-400) K/uL MPV (9.4-12.4) fL Immature Gran % (Auto) % Neut % (Auto) % Lymph % (Auto) % [place] % (Auto) % Eos % (Auto) % Baso % (Auto) % Neut # (Auto) (1.40-6.50) K/uL Lymph # (Auto) (1.20-3.40) K/uL [place] # (Auto) (0.11-0.59) K/uL Eos # (Auto) (0.00-0.50) K/uL Baso # (Auto) (0.00-0.20) K/uL Immature Gran # (Auto) (0.01-0.20) K/uL Neutrophils % (Manual) % Lymphocytes % (Manual) % Monocytes % (Manual) % Basophils % (Manual) % Metamyelocytes % (Man) % Neutrophils # (Manual) (1.40-6.50) K/uL Total Absolute Neuts (1.4-6.5) K/uL Lymphocytes # (Manual) (1.2-3.4) K/uL Total Abs Lymphocytes (1.2-3.4) K/uL Monocytes # (Manual) (0.11-0.59) K/uL Basophils # (Manual) (0-0.2) K/uL Metamyelocytes # (Man) (0-0) K/uL Large Granular Lymphs % # Lrg Granular Lymphs K/uL RBC Morphology Sodium (136-145) mmol/L Potassium (3.5-5.1) mmol/L Chloride (98-107) mmol/L Carbon Dioxide (21-32) mmol/L Anion Gap (3-11) BUN (6-23) mg/dl Creatinine (0.6-1.2) mg/dl Est Cr Clr Drug Dosing ml/min Est GFR ( Amer) ml/min Est GFR (Non-Af Amer) ml/min BUN/Creatinine Ratio (10-20) Glucose (70-99(Fasting)) mg/dl POC Glucose (70-99) mg/dl Calcium (8.6-10.3) mg/dl Phosphorus (2.5-4.9) mg/dl Magnesium (1.7-2.4) mg/dl Total Bilirubin (0.2-1.0) mg/dl AST (13-39) U/L ALT (7-52) U/L Alkaline Phosphatase (34-104) U/L Total Protein (6.0-8.3) gm/dl Albumin (3.4-5.0) gm/dl Globulin (2.5-4.0) gm/dl Albumin/Globulin Ratio (0.9-2) Free [place] LC, Quant 54.9 H (3.3-19.4) mg/L Free Lambda LC, Quant 56.7 H (5.7-26.3) mg/L Free [place]/Lambda Ratio 0.97 (0.26-1.65) Medications Administered Current Inpatient Medications Acetaminophen (Acetaminophen 325 Mg Tab) 650 mg PO Q4 PRN PRN Reason: Fever Or Pain Stop: 10/29/23 21:30 Last Admin: 10/02/23 12:03 Dose: 650 mg Albuterol (Albuterol Hfa 8 Gm Inhaler) 2 puffs INH Q4 PRN PRN Reason: Shortness Of Breath Stop: 10/29/23 21:30 Albuterol (Albuterol 0.083% Nebu Soln 3 Ml Vial) 2.5 mg INH QIDR PRN; Protocol PRN Reason: Shortness Of Breath Or Wheezin Stop: 10/29/23 21:30 Artificial Tears (Artificial Tears) 1 drops OPB QID [facility] Stop: 11/01/23 16:59 Last Admin: 10/02/23 20:38 Dose: Not Given Clopidogrel Bisulfate (Clopidogrel Bisulfate 75 Mg Tab) 75 mg PO QAM [facility] Stop: 10/30/23 08:59 Last Admin: 10/02/23 08:11 Dose: 75 mg Cyanocobalamin (Cyanocobalamin (B-12) 500 Mcg Tablet) 2,000 mcg PO MoWeFr@0900 [facility] Stop: 10/30/23 08:59 Last Admin: 10/02/23 08:12 Dose: 2,000 mcg Duloxetine HCl (Duloxetine Hcl 60 Mg Cap) 60 mg PO QAM [facility] Stop: 10/30/23 08:59 Last Admin: 10/02/23 08:11 Dose: 60 mg Filgrastim (Filgrastim 300 Mcg/Ml Vial) 300 mcg SQ DAILY [facility] Stop: 10/03/23 19:44 Last Admin: 10/02/23 08:30 Dose: 300 mcg Fluticasone/Vilanterol (Fluticasone/Vilanterol 200/25mcg 14 Puffs/Inhaler) 1 puffs INH DAILY [facility] Stop: 10/30/23 08:59 Last Admin: 10/02/23 08:13 Dose: 1 puffs Folic Acid (Folic Acid 1 Mg Tab) [facility] Stop: 10/30/23 08:59 Last Admin: 10/02/23 08:11 Dose: 1 mg Guaifenesin (Guaifenesin 600 Mg Tabcr) 600 mg PO Q12 [facility] Stop: 10/29/23 21:44 Last Admin: 10/02/23 20:37 Dose: 600 mg Cefepime HCl 2,000 mg/ Syringe 20 mls @ 5 mls/min IV Q12H [facility]; Protocol Stop: 10/12/23 12:59 Last Admin: 10/03/23 01:09 Dose: 5 mls/min Doxycycline Hyclate 100 mg/ (Dextrose) 100 mls @ 50 mls/hr IV Q12H [facility] Stop: 10/04/23 12:59 Last Infusion: 10/03/23 03:17 Dose: Infused Potassium Phosphate 21 mmol/ (Sodium Chloride) 507 mls @ 145 mls/hr IV ONE ONE Stop: 10/03/23 11:29 Sodium Chloride (Nss) 1,000 mls @ 125 mls/hr IV .Q8H [facility] Stop: 11/02/23 09:14 Ioversol (Optiray 320 125ml) 117 ml IV ONCE ONE Stop: 10/03/23 09:20 Last Admin: 10/03/23 09:21 Dose: 117 ml Isosorbide Dinitrate (Isosorbide Dinitrate 10 Mg Tab) 10 mg PO BID@0700,1200 [facility] Stop: 10/30/23 06:59 Last Admin: 10/03/23 06:21 Dose: Not Given Lactobacillus Acidophilus (Advanced Probiotic 1250 Mg Capsule) 1 cap PO BID [facility] Stop: 10/29/23 21:44 Last Admin: 10/02/23 20:38 Dose: 1 cap Latanoprost (Latanoprost 0.005% Op Soln 2.5 Ml Btl) 1 drops OPB HS KARLA Stop: 10/29/23 21:44 Last Admin: 10/02/23 20:38 Dose: 1 drops Metoprolol Succinate (Metoprolol Succ 50mg Ext Rel Tab) 50 mg PO BID [facility] Stop: 10/29/23 21:44 Last Admin: 10/02/23 20:37 Dose: 50 mg Miconazole Nitrate (Miconazole Nitrate Powder 85 Gm) 1 appln TOP BID [facility] Stop: 10/29/23 21:30 Last Admin: 10/02/23 20:39 Dose: 1 appln Montelukast Sodium (Montelukast Sodium 10 Mg Tablet) 10 mg PO QAM [facility] Stop: 10/30/23 08:59 Last Admin: 10/02/23 08:10 Dose: 10 mg Multivitamins (Multivitamin Tab) 1 tab PO QAM [facility] Stop: 10/30/23 08:59 Last Admin: 10/02/23 08:12 Dose: 1 tab Multivitamins/Minerals (Cerovite Adv Formula Tab) 1 tab PO QAM [facility] Stop: 10/30/23 08:59 Last Admin: 10/02/23 08:10 Dose: 1 tab Oxybutynin Chloride (Oxybutynin Chloride Xl 5 Mg Tabcr) 10 mg PO QAM [facility] Stop: 10/30/23 08:59 Last Admin: 10/02/23 08:10 Dose: 10 mg Pantoprazole Sodium (Pantoprazole 40 Mg Tab) 40 mg PO BID [facility] Stop: 10/29/23 21:44 Last Admin: 10/02/23 20:37 Dose: 40 mg Potassium Chloride (Potassium Chloride Pwd 20 Meq Pack) 20 meq PO TID [facility] Stop: 11/02/23 08:59 Potassium Phosphate (Pot Phosphate Monobasic W/ Sod Tab) 1 tab PO QID [facility] Stop: 11/02/23 08:59 Prednisone (Prednisone 5 Mg Tab) 5 mg PO [facility] Stop: 10/30/23 08:59 Last Admin: 10/02/23 08:12 Dose: 5 mg Rosuvastatin Calcium (Rosuvastatin Calcium 20 Mg Tab) 20 mg PO [facility] Stop: 10/29/23 21:44 Last Admin: 10/02/23 20:38 Dose: 20 mg Silver Sulfadiazine (Silver Sulfadiazine 1% Cr 50 Gm Jar) 1 appln TOP UD PRN PRN Reason: DRESSING CHANGES Stop: 10/29/23 21:30 Thiamine HCl (Thiamine Hcl 50 Mg Tablet) 50 mg PO [facility] Stop: 10/30/23 08:59 Last Admin: 10/02/23 08:12 Dose: 50 mg Vitamin D (Cholecalciferol 1,000 Units 25 Mcg Tab) 2,000 units PO [facility] Stop: 10/30/23 08:59 Last Admin: 10/02/23 08:12 Dose: 2,000 units
--- NOTE | 2023-10-03 09:40 | CT Scan Report ---
HEAD CT NONCONTRAST CT DOSE: HISTORY: Stroke symptoms r/o cva TECHNIQUE: Multiaxial CT images of the head were performed without the use of intravenous contrast. A utomated exposure control was utilized for this study. A dose lowering technique was utilized adheri ng to the principles of ALARA. Comparison: Head CT 09/06/2023. Findings: The paranasal sinuses and mastoid air cells are clear. The calvarium and skull base are int act. There is no mass, hematoma, midline shift, acute infarct. White matter hypodensity is nonspecifi c but suggestive of microvascular ischemic change. The ventricles and sulci demonstrate mild age-rela sandeep involutional changes. Impression: No acute intracranial abnormality. Atrophy and microvascular ischemic changes. ACT 112: Negative or not required by law. Electronically signed by: Peter Olivarez M.D. 10/03/2023 9:38 AM
--- NOTE | 2023-10-03 09:48 | CT Scan Report ---
HEAD & NECK CTA HISTORY: Stroke symptoms. r/o cva TECHNIQUE: Multiaxial CT images of the head were performed following the intravenous administration o f contrast to evaluate the major cerebral vessels. Multiaxial CT images of the neck were also perform ed following the intravenous administration of contrast to evaluate the major cervical vessels. 3D/NE P images were also obtained. Sagittal and coronal reformats were reviewed. A dose lowering technique was utilized adhering to the principles of ALARA. COMPARISON: Head CT 10/03/2023. Head and neck CTA 03/21/2022. FINDINGS: There is no mass, hematoma, midline shift, or acute infarct. Visualized intracranial internal carotid arteries, distal vertebral arteries, and basilar artery are widely patent. There is no significant s tenosis, occlusion, or aneurysm seen within the bilateral ACAs, MCAs, or chief investigator. Moderate to severe vane cified plaque within the bilateral carotid siphons.. The major dural venous sinuses are patent. The aortic arch and proximal great vessels are widely patent. Severe calcified plaque within the bi lateral carotid bifurcations. This results in up to 50% stenosis within the left carotid bifurcation and up to 75% stenosis at the takeoff of the right internal carotid artery. This is best seen image 2 06. There is also 60% stenosis within the distal right common carotid artery. The mid to distal bilat eral internal carotid arteries are patent. No significant stenosis, occlusion, or dissection within t he bilateral vertebral arteries. There is a partially visualized right shoulder prosthesis. IMPRESSION: 1. No significant stenosis, occlusion, or aneurysm within the [place]. 2. Bilateral carotid artery stenosis as described above. No evidence for carotid occlusion or dissect ion. 3. The bilateral vertebral arteries are patent. ACT 112: Negative or not required by law. Electronically signed by: Peter Olivarez M.D. 10/03/2023 9:46 AM
--- NOTE | 2023-10-03 09:48 | CT Scan Report ---
HEAD & NECK CTA HISTORY: Stroke symptoms. r/o cva TECHNIQUE: Multiaxial CT images of the head were performed following the intravenous administration o f contrast to evaluate the major cerebral vessels. Multiaxial CT images of the neck were also perform ed following the intravenous administration of contrast to evaluate the major cervical vessels. 3D/NV P images were also obtained. Sagittal and coronal reformats were reviewed. A dose lowering technique was utilized adhering to the principles of ALARA. COMPARISON: Head CT 10/03/2023. Head and neck CTA 03/21/2022. FINDINGS: There is no mass, hematoma, midline shift, or acute infarct. Visualized intracranial internal carotid arteries, distal vertebral arteries, and basilar artery are widely patent. There is no significant s tenosis, occlusion, or aneurysm seen within the bilateral ACAs, MCAs, or biomedical technician. Moderate to severe vane cified plaque within the bilateral carotid siphons.. The major dural venous sinuses are patent. The aortic arch and proximal great vessels are widely patent. Severe calcified plaque within the bi lateral carotid bifurcations. This results in up to 50% stenosis within the left carotid bifurcation and up to 75% stenosis at the takeoff of the right internal carotid artery. This is best seen image 2 06. There is also 60% stenosis within the distal right common carotid artery. The mid to distal bilat eral internal carotid arteries are patent. No significant stenosis, occlusion, or dissection within t he bilateral vertebral arteries. There is a partially visualized right shoulder prosthesis. IMPRESSION: 1. No significant stenosis, occlusion, or aneurysm within the [place]. 2. Bilateral carotid artery stenosis as described above. No evidence for carotid occlusion or dissect ion. 3. The bilateral vertebral arteries are patent. ACT 112: Negative or not required by law. Electronically signed by: Peter Olivarez M.D. 10/03/2023 9:46 AM
[2023-10-03 11:27] LABS: Babesia microti DNA Not Detected (Not Detected)
[2023-10-03] MEDS: CEROVITE ADV FORMULA TAB PO SCH (12:01)
[2023-10-03] MEDS: MULTIVITAMIN TAB PO SCH (12:32)
[2023-10-03] MEDS: PANTOprazole 40 MG TAB PO SCH ×2 (12:33→21:38)
[2023-10-03] MEDS: THIAMINE HCL 50 MG TABLET PO SCH (12:34)
[2023-10-03] MEDS: POTASSIUM CHLORIDE PWD 20 MEQ PACK PO SCH ×3 (12:35→21:37)
[2023-10-03] MEDS: ADVANCED PROBIOTIC 1250 MG CAPSULE PO SCH ×2 (12:36→21:38)
[2023-10-03] MEDS: MONTELUKAST SODIUM 10 MG TABLET PO SCH (12:36)
[2023-10-03] MEDS: CHOLECALCIFEROL 25 MCG (1000 UNITS) TAB PO SCH (12:42)
[2023-10-03] MEDS: OXYBUTYNIN CHLORIDE XL 5 MG TABCR PO SCH (12:42)
[2023-10-03] MEDS: guaiFENesin 600 MG TABCR PO SCH ×2 (12:42→21:38)
[2023-10-03] MEDS: DULoxetine HCL 60 MG CAP PO SCH (12:42)
[2023-10-03] MEDS: FOLIC ACID 1 MG TAB PO SCH (12:42)
[2023-10-03] MEDS: MICONAZOLE NITRATE POWDER 85 GM TOP SCH ×2 (13:12→21:38)
[2023-10-03] MEDS: DAPTOmycin 450 MG in SYRINGE 0 ML IV SCH (13:13)
[2023-10-03] MEDS: predniSONE 5 MG TAB PO SCH (13:13)
[2023-10-03] MEDS: ERTAPENEM SODIUM 1,000 MG in SYRINGE 0 ML IV SCH (13:13)
[2023-10-03] MEDS: METOPROLOL SUCC 50MG EXT REL TAB PO SCH ×2 (13:13→21:38)
[2023-10-03] MEDS: ARTIFICIAL TEARS OPB SCH ×3 (13:13→18:23)
[2023-10-03] MEDS: CLOPIDOGREL BISULFATE 75 MG TAB PO SCH (13:17)
[2023-10-03] MEDS: SODIUM CHLORIDE 0.9% 1,000 ML IV SCH ×2 (13:20→19:15)
--- NOTE | 2023-10-03 13:23 | Magnetic Resonance Report ---
Brain MRI WITHOUT CONTRAST HISTORY: Altered mental status. Confusion. TECHNIQUE: Multiplanar multisequence MRI of the brain was performed without the use of contrast. COMPARISON STUDY: Head CT 10/03/2023. Brain MRI 09/08/2023. FINDINGS: There is no mass, hematoma, midline shift, or acute infarct. The paranasal sinuses are che r. The mastoid air cells are clear. The ventricles and sulci demonstrate moderate age-related involut ional changes. Scattered foci of T2 hyperintensity seen within the periventricular and subcortical wh ite matter are nonspecific but suggestive of moderate microvascular ischemic changes. The major vascu lar flow voids at the skull base are well-maintained. Scattered punctate foci of susceptibility artif act seen within the brain. This raises the possibility of underlying cerebral amyloid angiopathy. Thi s is similar to the prior study. IMPRESSION: No significant change compared to the prior study. No acute intracranial abnormality. ACT 112: Negative or not required by law. Electronically signed by: Peter Olivarez M.D. 10/03/2023 1:22 PM
--- NOTE | 2023-10-03 13:51 | Neurology Consultation ---
Date of Consultation October 03, 2023 Assessment & Plan (1) Altered mental status: Plan Altered mental status suspected to be due to toxic metabolic encephalopathy. However given immunosuppression status, fluid out infection. If the patient remains altered consider an LP. Recommend an EEG. Consider fungal cultures blood and CSF if no improvement given immunosuppression Telehealth Consultation Telehealth Information Telehealth Information: I performed this visit using a real-time telehealth connection between my location and the patients location ([facility]). After connecting through interactive tele-video, patient was identified by name and date of and/or wristband check.Patient (or authorized healthcare bottling equipment sales representative) was informed that this was a telemedicine visit and it was being conducted confidentially over secure lines. My office door was closed and no one else was present in the room with me.Patient (or authorized healthcare bottling equipment sales representative) provided consent to proceed with the visit, expressed an understanding of privacy and security of the telemedicine visit, and gave permission to have a hospital bottling equipment sales representative in the room in order to assist with the visit and to conduct portions of the visit, as needed. I informed the patient (or authorized healthcare bottling equipment sales representative) that I reviewed their record and presented the opportunity for them to ask any questions regarding the visit today. The patient agreed to participate. History of Present Illness Reason for Consultation: [facility] Requesting Physician: Dr Phillip Attending Physician: Francisco J Phillip MD History of Present Illness Belem Rodriguez is a 78-year-old female patient with a PMH of HTN, HLP, CKD stage III, type II DM, chronic interstitial lung disease, COPD, PAF, history of esophageal dysphagia, rheumatoid arthritis and polyneuropathy who has presented to the hospital on the 16th of the month for pancytopenia complicated UTI, with multiple electrolyte abnormalities. Today the patient was noted to be more altered than usual does not open her eyes and follow commands, CT scan of the head and CTA were obtained and did not show any large vessel occlusion however did show bilateral carotid stenosis in addition to scattered atherosclerotic disease. MRI of the brain not show any acute ischemia Attending patient was noted to be febrile yesterday, started on antibiotics, his antibiotics were changed today to cover more sensitivities. The patient remained altered throughout the day with response to pain, she is described to be sleepy and not wanting to follow commands, resisting eye opening. She has a history of similar presentations Allergies Allergy/AdvReac Type Severity Reaction Status Date / Time Influenza Virus Vaccines Allergy Severe FLOWN TO Verified 09/05/23 20:43 [facility]. ciprofloxacin Allergy Intermediate RASH/BLEEDI Verified 09/05/23 20:43 NG methotrexate Allergy Intermediate RASH/PNEUMO Verified 09/05/23 20:43 N[facility]IS Penicillins Allergy Intermediate hives Verified 09/05/23 20:43 ranitidine Allergy Intermediate rash Verified 09/05/23 20:43 Home Medications Medication Instructions Recorded Confirmed Type folic acid 1 mg tablet 1 mg PO QAM 07/20/18 09/29/23 History prednisone 5 mg tablet 5 mg PO QAM 07/20/18 09/29/23 History albuterol sulfate 90 mcg/actuation 2 puff inhalation Q4 PRN Shortness 03/07/19 09/29/23 History aerosol inhaler (ProAir HFA) Of Breath cyanocobalamin (vitamin B-12) 2,000 mcg PO 3XWK 03/07/19 09/29/23 History 1,000 mcg tablet (Vitamin B-12) vit A 300 mcg-C 200 mg-E 27 1 tab PO QAM 03/07/09/29/23 History mg-lutein 2 mg and minerals tablet (Ocuvite with Lutein) [id number] 8 mg-folic 400 1 tab PO QAM 11/12/19 09/29/23 History mcg-K 50 mcg-lutein 300 mcg tablet (Centrum Silver Women) montelukast 10 mg tablet 10 mg PO QAM 11/15/20 09/29/23 History latanoprost 0.005 % eye drops 1 drp OPB HS 01/03/21 09/29/23 History solifenacin 10 mg tablet (Vesicare) 10 mg PO QAM 08/22/21 09/29/23 History acetaminophen 325 mg tablet 650 mg PO Q4 PRN Fever Or Pain 03/21/22 09/29/23 History fluticasone furoate 200 1 inh inhalation DAILY 03/21/22 09/29/23 History mcg-vilanterol 25 mcg/dose inhalation powder (Breo Ellipta) thiamine HCl (vitamin B1) 100 mg 50 mg PO QAM 03/21/22 09/29/23 History tablet clopidogrel 75 mg tablet 75 mg PO QAM #30 tabs 04/01/22 09/29/23 Rx Lactobacillus rhamnosus GG 5 5 cell PO BID 08/06/22 09/29/23 History billion cell oral powder packet ([employer]bi[employer]) albuterol sulfate 2.5 mg/3 mL 2.5 mg inhalation QID PRN 08/06/22 09/29/23 History (0.083 %) solution for nebulization Shortness Of Breath Or Wheezing cholecalciferol (vitamin D3) 50 50 mcg PO QAM 08/06/22 09/29/23 History mcg (2,000 unit) capsule (Vitamin D3) guaifenesin 600 mg tablet, 600 mg PO Q12 #10 tabs 09/22/23 09/29/23 Rx extended release 12 hr (Mucinex) isosorbide dinitrate 10 mg tablet 10 mg PO BID #60 tabs 09/22/23 09/29/23 Rx duloxetine 60 mg capsule,delayed 60 mg PO QAM 09/29/23 09/29/23 History release hydroxychloroquine 200 mg tablet 200 mg PO .ON HOLD 09/29/23 09/29/23 History metoprolol succinate 50 mg 50 mg PO AMHS 09/29/23 09/29/23 History tablet,extended release 24 hr miconazole nitrate 2 % topical 1 applic topical BID 09/29/23 09/29/23 History powder (Remedy Antifungal) pantoprazole 40 mg tablet,delayed 40 mg PO AMHS 09/29/23 09/29/23 History release rosuvastatin 20 mg tablet 20 mg PO HS 09/29/23 09/29/23 History silver sulfadiazine 1 % topical 1 applic topical [id number] 09/29/23 09/29/23 History cream (Silvadene) Patient History Medical History Wrist fracture, left History of stroke Thrush, oral Hyponatremia Nontraumatic rectus hematoma NSTEMI (non-ST elevated myocardial infarction) UTI (urinary tract infection) Immunosuppressed status DVT prophylaxis CKD (chronic kidney disease), stage III Acute hyponatremia Abnormal ECG Elevated troponin Syncope NSTEMI (non-ST elevated myocardial infarction) Visual hallucinations Hyponatremia RSV infection Recurrent Clostridium difficile diarrhea Chronic steroid use prednisone daily Gout H/O interstitial lung disease "drug induced- methotrexate " Osteoarthritis Glaucoma Peripheral neuropathy Dyslipidemia Rheumatoid arthritis "on chronic steroids" COPD (chronic obstructive pulmonary disease) inhalers prn Depression CKD (chronic kidney disease), stage III Gastroparesis DM type 2 (diabetes mellitus, type 2) GERD (gastroesophageal reflux disease) Migraines DJD of right shoulder NSTEMI (non-ST elevated myocardial infarction) (08/06/13) Asthma inhalers prn HTN (hypertension) Heart disease Surgical History History of tooth extraction all top teeth History of esophagogastroduodenoscopy (EGD) H/O cardiac catheterization "cath 07/2013- single vessel CAD involving apical segment LAD, medical management indicated" S/P total knee arthroplasty "left knee" History of hysterectomy H/O colonoscopy S/P rotator cuff repair "right shoulder" S/P removal of ovarian cyst Family History Father Family history of diabetes mellitus Mother Heart disease Hypertension Other No family history of adverse response to anesthesia Social History Smoking Status: Never smoker Second Hand Exposure: No; Do You Dip or Chew Tobacco: No; Tobacco Cessation Education Requested by Patient: No Hx Alcohol Use: No Hx Substance Use: No Preferred Language: Tristanian Communication Ability: Effective Stock Saw Operator Required: No Beliefs That Will Affect Care: None marital status: Current Living Situation: Spouse and Parent current occupational status: retired current occupation: Former [employer] Other Information That Helps Us Care for You: No Feels Safe at Home: Yes Assistive Devices: Cane and Walker Review of Systems Cannot obtain due to AMS Physical Exam General Constitutional: Appearance normally developed Head and face: normocephalic and atraumatic Eyes: no ptosis, no anisocoria, and no dysconjugate gaze Respiratory: normal effort Cardiovascular: regular rhythm and regular rate Abdomen: non distended Skin: no rashes, lesions, or ulcers noted Psychiatric: AMS The patient's exam was nonfocal she appears lethargic, will open eyes and then drifts back to sleep, she resisted eye opening. She was nonverbal, she was noted to be moving bilateral upper extremities freely, there is significant at rophy and weakness of the lower extremities bilaterally. Upon arrival today the patient had roving eye movement with no significant gaze deviation Results & Data Vital Signs (Past 12 Hours) Vital Signs Temp Pulse Pulse Resp BP BP Pulse Ox 10/03/23 08:07 37.1 C 82 18 146/69 H 99 10/03/23 07:51 84 10/03/23 04:03 37.7 C H 91 H 18 150/64 H 94 O2 Del Method 10/03/23 08:07 Room Air 10/03/23 07:51 10/03/23 04:03 Room Air Laboratory Results Abnormal lab results 10/03/23 10/03/23 Range/Units 06:13 11:06 WBC 1.29 L (4.8-10.8) K/ul RBC 2.92 L (4.20-5.40) M/uL Hgb 8.2 L (12.0-16.0) g/dl Hct 23.5 L (37.0-47.0) % RDW Std Deviation 49.1 H (36.4-46.3) fL RDW Coeff of Xochitl 16.9 H (11.5-14.5) % MPV 8.7 L (9.4-12.4) fL Neut # (Auto) 0.15 L* (1.40-6.50) K/uL Lymph # (Auto) 0.84 L (1.20-3.40) K/uL Sodium 130 L (136-145) mmol/L Potassium 3.1 L (3.5-5.1) mmol/L Carbon Dioxide 19 L (21-32) mmol/L Calcium 8.2 L (8.6-10.3) mg/dl Phosphorus 1.5 L* (2.5-4.9) mg/dl AST 42 H (13-39) U/L Troponin I High Sens 19.0 H (0-14) pg/ml Total Protein 5.3 L (6.0-8.3) gm/dl Albumin 2.9 L (3.4-5.0) gm/dl Globulin 2.4 L (2.5-4.0) gm/dl Diagnostic Findings Head CT 10/03/23 09:[address] DOSE: HISTORY: Stroke symptoms r/o cva TECHNIQUE: Multiaxial CT images of the head were performed without the use of intravenous contrast. Automated exposure control was utilized for this study. A dose lowering technique was utilized adhering to the principles of ALARA. Comparison: Head CT 09/06/2023. Findings: The paranasal sinuses and mastoid air cells are clear. The calvarium and skull base are intact. There is no mass, hematoma, midline shift, acute infarct. White matter hypodensity is nonspecific but suggestive of microvascular ischemic change. The ventricles and sulci demonstrate mild age-related involutional changes. Impression: No acute intracranial abnormality. Atrophy and microvascular ischemic changes. ACT 112: Negative or not required by law. Electronically signed by: Peter Olivarez M.D. 10/03/2023 9:38 AM Head CTA 10/03/23 09:12 HEAD & NECK CTA HISTORY: Stroke symptoms. r/o cva TECHNIQUE: Multiaxial CT images of the head were performed following the intravenous administration of contrast to evaluate the major cerebral vessels. Multiaxial CT images of the neck were also performed following the intravenous administration of contrast to evaluate the major cervical vessels. 3D/MIP images were also obtained. Sagittal and coronal reformats were reviewed. A dose lowering technique was utilized adhering to the principles of ALARA. COMPARISON: Head CT 10/03/2023. Head and neck CTA 03/21/2022. FINDINGS: There is no mass, hematoma, midline shift, or acute infarct. Visualized intracranial internal carotid arteries, distal vertebral arteries, and basilar artery are widely patent. There is no significant stenosis, occlusion, or aneurysm seen within the bilateral ACAs, MCAs, or oracle financial application developer. Moderate to severe calcified plaque within the bilateral carotid siphons.. The major dural venous sinuses are patent. The aortic arch and proximal great vessels are widely patent. Severe calcified plaque within the bilateral carotid bifurcations. This results in up to 50% stenosis within the left carotid bifurcation and up to 75% stenosis at the takeoff of the right internal carotid artery. This is best seen image 206. There is also 60% stenosis within the distal right common carotid artery. The mid to distal bilateral internal carotid arteries are patent. No significant stenosis, occlusion, or dissection within the bilateral vertebral arteries. There is a partially visualized right shoulder prosthesis. IMPRESSION: 1. No significant stenosis, occlusion, or aneurysm within the [place]. 2. Bilateral carotid artery stenosis as described above. No evidence for carotid occlusion or dissection. 3. The bilateral vertebral arteries are patent. ACT 112: Negative or not required by law. Electronically signed by: Peter Olivraez M.D. 10/03/2023 9:46 AM Neck CTA 10/03/23 09:12 HEAD & NECK CTA HISTORY: Stroke symptoms. r/o cva TECHNIQUE: Multiaxial CT images of the head were performed following the intravenous administration of contrast to evaluate the major cerebral vessels. Multiaxial CT images of the neck were also performed following the intravenous administration of contrast to evaluate the major cervical vessels. 3D/MIP images were also obtained. Sagittal and coronal reformats were reviewed. A dose lowering technique was utilized adhering to the principles of ALARA. COMPARISON: Head CT 10/03/2023. Head and neck CTA 03/21/2022. FINDINGS: There is no mass, hematoma, midline shift, or acute infarct. Visualized intr acranial internal carotid arteries, distal vertebral arteries, and basilar artery are widely patent. There is no significant stenosis, occlusion, or aneurysm seen within the bilateral ACAs, MCAs, or oracle financial application developer. Moderate to severe calcified plaque within the bilateral carotid siphons.. The major dural venous sinuses are patent. The aortic arch and proximal great vessels are widely patent. Severe calcified plaque within the bilateral carotid bifurcations. This results in up to 50% stenosis within the left carotid bifurcation and up to 75% stenosis at the takeoff of the right internal carotid artery. This is best seen image 206. There is also 60% stenosis within the distal right common carotid artery. The mid to distal bilateral internal carotid arteries are patent. No significant stenosis, occlusion, or dissection within the bilateral vertebral arteries. There is a partially visualized right shoulder prosthesis. IMPRESSION: 1. No significant stenosis, occlusion, or aneurysm within the [place]. 2. Bilateral carotid artery stenosis as described above. No evidence for carotid occlusion or dissection. 3. The bilateral vertebral arteries are patent. ACT 112: Negative or not required by law. Electronically signed by: Peter Olivarez M.D. 10/03/2023 9:46 AM Brain MRI 10/03/23 10:03 Brain MRI WITHOUT CONTRAST HISTORY: Altered mental status. Confusion. TECHNIQUE: Multiplanar multisequence MRI of the brain was performed without the use of contrast. COMPARISON STUDY: Head CT 10/03/2023. Brain MRI 09/08/2023. FINDINGS: There is no mass, hematoma, midline shift, or acute infarct. The paranasal sinuses are clear. The mastoid air cells are clear. The ventricles and sulci demonstrate moderate age-related involutional changes. Scattered foci of T2 hyperintensity seen within the periventricular and subcortical white matter are nonspecific but suggestive of moderate microvascular ischemic changes. The major vascular flow voids at the skull base are well-maintained. Scattered punctate foci of susceptibility artifact seen within the brain. This raises the possibility of underlying cerebral amyloid angiopathy. This is similar to the prior study. IMPRESSION: No significant change compared to the prior study. No acute intracranial abnormality. ACT 112: Negative or not required by law. Electronically signed by: Peter Olivarez M.D. 10/03/2023 1:22 PM Medications Administered Home Medications Medication Instructions Recorded Confirmed Last Taken folic acid 1 mg tablet 1 mg PO QAM 07/20/18 09/29/23 09/29/23 09:00 prednisone 5 mg tablet 5 mg PO QAM 07/20/18 09/29/23 09/29/23 09:00 albuterol sulfate 90 mcg/actuation 2 puff inhalation Q4 PRN Shortness 03/07/19 09/29/23 05/07/23 aerosol inhaler (ProAir HFA) Of Breath cyanocobalamin (vitamin B-12) 2,000 mcg PO 3XWK 03/07/19 09/29/23 09/28/23 09:00 1,000 mcg tablet (Vitamin B-12) vit A 300 mcg-C 200 mg-E 27 1 tab PO QAM 03/07/19 09/29/23 09/29/23 09:00 mg-lutein 2 mg and minerals tablet (Ocuvite with Lutein) [id number] 8 mg-folic 400 1 tab PO QAM 11/12/19 09/29/23 09/29/23 09:00 mcg-K 50 mcg-lutein 300 mcg tablet (Centrum Silver Women) montelukast 10 mg tablet 10 mg PO QAM 11/15/20 09/29/23 09/29/23 09:00 latanoprost 0.005 % eye drops 1 drp OPB HS 01/03/21 09/29/23 09/28/23 21:00 solifenacin 10 mg tablet (Vesicare) 10 mg PO QAM 08/22/21 09/29/23 09/29/23 09:00 acetaminophen 325 mg tablet 650 mg PO Q4 PRN Fever Or Pain 03/21/22 09/29/23 05/07/23 fluticasone furoate 200 1 inh inhalation DAILY 03/21/22 09/29/23 09/29/23 09:00 mcg-vilanterol 25 mcg/dose inhalation powder (Breo Ellipta) thiamine HCl (vitamin B1) 100 mg 50 mg PO QAM 03/21/22 09/29/23 09/29/23 09:00 tablet clopidogrel 75 mg tablet 75 mg PO QAM #30 tabs 04/01/22 09/29/23 09/29/23 09:00 Lactobacillus rhamnosus GG 5 5 cell PO BID 08/06/22 09/29/23 09/29/23 09:00 billion cell oral powder packet ([employer]bi[employer]) albuterol sulfate 2.5 mg/3 mL 2.5 mg inhalation QID PRN 08/06/22 09/29/23 05/07/23 (0.083 %) solution for nebulization Shortness Of Breath Or Wheezing cholecalciferol (vitamin D3) 50 50 mcg PO QAM 08/06/22 09/29/23 09/29/23 09:00 mcg (2,000 unit) capsule (Vitamin D3) guaifenesin 600 mg tablet, 600 mg PO Q12 #10 tabs 09/22/23 09/29/23 09/29/23 09:00 extended release 12 hr (Mucinex) isosorbide dinitrate 10 mg tablet 10 mg PO BID #60 tabs 09/22/23 09/29/23 09/29/23 09:00 duloxetine 60 mg capsule,delayed 60 mg PO QAM 09/29/23 09/29/23 09/29/23 09:00 release hydroxychloroquine 200 mg tablet 200 mg PO .ON HOLD 09/29/23 09/29/23 09/28/23 metoprolol succinate 50 mg 50 mg PO AMHS 09/29/23 09/29/23 09/29/23 09:00 tablet,extended release 24 hr miconazole nitrate 2 % topical 1 applic topical BID 09/29/23 09/29/23 09/29/23 powder (Remedy Antifungal) pantoprazole 40 mg tablet,delayed 40 mg PO AMHS 09/29/23 09/29/23 09/29/23 09:00 release rosuvastatin 20 mg tablet 20 mg PO HS 09/29/23 09/29/23 09/28/23 21:00 silver sulfadiazine 1 % topical 1 applic topical [id number] 09/29/23 09/29/23 09/29/23 cream (Silvadene) Active Medications Generic Name Dose Route Start Last Admin Trade Name Freq PRN Reason Stop Dose Admin Acetaminophen 650 mg 09/29/23 21:31 10/02/23 12:03 Acetaminophen 325 Mg Tab PO 10/29/23 21:30 650 mg Q4 PRN Administration Fever Or Pain Artificial Tears 1 drops 10/02/23 17:00 10/03/23 13:13 Artificial Tears OPB 11/01/23 16:59 Not Given QID KARLA Clopidogrel Bisulfate 75 mg 09/30/23 09:00 10/03/23 13:17 Clopidogrel Bisulfate 75 Mg Tab PO 10/30/23 08:59 Not Given QAM [facility] Cyanocobalamin 2,000 mcg 09/30/23 09:00 10/02/23 08:12 Cyanocobalamin (B-12) 500 Mcg Tablet PO 10/30/23 08:59 2,000 mcg [id number] KARLA Administration Duloxetine HCl 60 mg 09/30/23 09:00 10/03/23 12:42 Duloxetine Hcl 60 Mg Cap PO 10/30/23 08:59 Not Given QAM KARLA Fluticasone/Vilanterol 1 puffs 09/30/23 09:00 10/02/23 08:13 Fluticasone/Vilanterol 200/25mcg 14 Puffs/Inhaler INH 10/30/23 08:59 1 puffs DAILY KARLA Administration Folic Acid 1 mg 09/30/23 09:00 10/03/23 12:42 Folic Acid 1 Mg Tab PO 10/30/23 08:59 Not Given QAM KARLA Guaifenesin 600 mg 09/29/23 21:45 10/03/23 12:42 Guaifenesin 600 Mg Tabcr PO 10/29/23 21:44 Not Given Q12 KARLA Doxycycline Hyclate 100 mg/ 100 mls @ 50 mls/hr 10/02/23 13:00 10/03/23 03:17 Dextrose IV 10/04/23 12:59 Infused Q12H KARLA Infusion Sodium Chloride 1,000 mls @ 125 mls/hr 10/03/23 09:15 10/03/23 13:20 Nss IV 11/02/23 09:14 125 mls/hr .Q8H KARLA Administration Ertapenem 1,000 mg/ Syringe 10 mls @ 2 mls/min 10/03/23 10:30 10/03/23 13:13 IV 10/13/23 10:29 2 mls/min Q24H KARLA Administration Daptomycin 450 mg/ Syringe 9 mls @ 4.5 mls/min 10/03/23 10:30 10/03/23 13:13 IV 10/13/23 10:29 4.5 mls/min Q24H KARLA Administration Protocol Isosorbide Dinitrate 10 mg 09/30/23 07:00 10/03/23 13:13 Isosorbide Dinitrate 10 Mg Tab PO 10/30/23 06:59 Not Given BID@0700,1200 KARLA Lactobacillus Acidophilus 1 cap 09/29/23 21:45 10/03/23 12:36 Advanced Probiotic 1250 Mg Capsule PO 10/29/23 21:44 Not Given BID KARLA Latanoprost 1 drops 09/29/23 21:45 10/02/23 20:38 Latanoprost 0.005% Op Soln 2.5 Ml Btl OPB 10/29/23 21:44 1 drops HS KARLA Administration Metoprolol Succinate 50 mg 09/29/23 21:45 10/03/23 13:13 Metoprolol Succ 50mg Ext Rel Tab PO 10/29/23 21:44 Not Given BID KARLA Miconazole Nitrate 1 appln 09/29/23 21:31 10/03/23 13:12 Miconazole Nitrate Powder 85 Gm TOP 10/29/23 21:30 1 appln BID KARLA Administration Montelukast Sodium 10 mg 09/30/23 09:00 10/03/23 12:36 Montelukast Sodium 10 Mg Tablet PO 10/30/23 08:59 Not Given QAM KARLA Multivitamins 1 tab 09/30/23 09:00 10/03/23 12:32 Multivitamin Tab PO 10/30/23 08:59 Not Given QAM [facility] Multivitamins/Minerals 1 tab 09/30/23 09:00 10/03/23 12:01 Cerovite Adv Formula Tab PO 10/30/23 08:59 Not Given QAM [facility] Oxybutynin Chloride 10 mg 09/30/23 09:00 10/03/23 12:42 Oxybutynin Chloride Xl 5 Mg Tabcr PO 10/30/23 08:59 Not Given QAM KARLA Pantoprazole Sodium 40 mg 09/29/23 21:45 10/03/23 12:33 Pantoprazole 40 Mg Tab PO 10/29/23 21:44 Not Given BID KARLA Potassium Chloride 20 meq 10/03/23 09:00 10/03/23 12:35 Potassium Chloride Pwd 20 Meq Pack PO 11/02/23 08:59 Not Given TID KARLA Prednisone 5 mg 09/30/23 09:00 10/03/23 13:13 Prednisone 5 Mg Tab PO 10/30/23 08:59 Not Given QAM [facility] Rosuvastatin Calcium 20 mg 09/29/23 21:45 10/02/23 20:38 Rosuvastatin Calcium 20 Mg Tab PO 10/29/23 21:44 20 mg HS KARLA Administration Thiamine HCl 50 mg 09/30/23 09:00 10/03/23 12:34 Thiamine Hcl 50 Mg Tablet PO 10/30/23 08:59 Not Given QAM [facility] Vitamin D 2,000 units 09/30/23 09:00 10/03/23 12:42 Cholecalciferol 1,000 Units 25 Mcg Tab PO 10/30/23 08:59 Not Given QAM KARLA ECG Additional Comments: A fib (1) Altered mental status Altered mental status type: disorientation Qualified Code(s): R41.0 - Disorientation, unspecified
[2023-10-03] MEDS: FLUTICASONE/VILANTEROL 200/25MCG 14 PUFFS/INHALER INH SCH (15:47)
[2023-10-03] MEDS ORDERED: ACETAMINOPHEN 1,000 MG/100 ML VIAL IV STA (15:53)
--- NOTE | 2023-10-03 16:08 | Electrocardiogram Report ---
Test Reason : Blood Pressure : / mmHG Vent. Rate : 142 BPM Atrial Rate : 108 BPM P-R Int : 146 ms QRS Dur : 112 ms QT Int : 328 ms P-R-T Axes : 097 069 237 degrees QTc Int : 504 ms Poor data quality, interpretation may be adversely affected Sinus tachycardia with frequent , and consecutive PACs Right atrial enlargement Low voltage QRS Incomplete right bundle branch block Abnormal ECG When compared with ECG of 29-SEP-2023 16:36, Premature ventricular complexes are now Present Premature atrial complexes are no longer Present Vent. rate has increased BY 68 BPM Incomplete right bundle branch block has replaced Right bundle branch block Confirmed by Tesfaye Singh ([id number]) on 10/03/2023 4:08:05 PM Referred By: REFERRED SELF Confirmed By:Av Singh
--- NOTE | 2023-10-03 16:52 | Nephrology Progress Note ---
Date of Service October 03, 2023 Assessment & Plan (1) Electrolyte and fluid disorder: Plan: stable mild hyponatremia (presenting sodium 129 up to 131 on 09/30), with today mild hypocalcemia, and again/recurrent low phosphate and K; with normal magnesium levels. some delay in getting urine sodium studies which compromises their already limited utility > c/w low solute diet/ poor po intake -goal sNa for am is wnl at most -for now no fluid limit needed -daily bmp, mag, phos -encourage po intake > pls see RD recs for more protein intake, more mag and phos rich foods; also recommended pt be fed Did update hospitalist about marked change in ms Care coordinated w/ Dr Phillip. Admission and Anticipated Discharge Date Admission Date: September 29, 2023 Subjective seen on rounds at about 0820; pt unable to gicve ros d/t diminished ms; alerted hospitalist and charge Review of Systems 2 Review of Systems: Unobtainable due to reduced consciousness Physical Exam 2 Constitutional: well developed, + cachectic, + altered mental status, + physical limitations and + frail appearing; no acute distress Eyes: EOM intact bilaterally ENMT: Ears: no external ear abnormality Nose: no external nose abnormality Mouth: + dry oral mucous membranes Neck: no nuchal rigidity Respiratory: normal respiratory effort Auscultation: + diminished lung sounds Cardiovascular: Rate/Rhythm: regular rate and regular rhythm Extremities: n o edema Gastrointestinal (Abdomen): Inspection/Auscultation: normal bowel sounds P ercussion/Palpation: abdomen soft; abdomen nontender Musculoskeletal: Extremities: strength 5/5 throughout Skin: no rashes, warm and dry Results & Data Vital Signs (Past 12 Hours) Vital Signs Temp Pulse Pulse Resp BP Pulse Ox O2 Del Method 10/03/23 15:16 36.8 C 94 H 19 152/83 H 97 Room Air 10/03/23 11:30 37.4 C 88 20 145/74 H 95 Room Air 10/03/23 08:07 37.1 C 82 18 146/69 H 99 Room Air 10/03/23 07:51 84 Laboratory Results 10/03/23 06:13 10/03/23 06:13
--- NOTE | 2023-10-03 18:23 | Cardiology Consultation ---
Date of Consultation October 03, 2023 Assessment & Plan (1) Encephalopathy: unclear etiology-MRI brain negative for CVA could be metabolic or infectious related at this juncture does not seem to be cardiac in etiology (2) Chaotic atrial rhythm: pt's telemetry reviewed-looks to be more ST/SA i can not clearly see any pAF (3) Carotid artery stenosis: continue plavix and crestor (4) Elevated blood pressure reading: would allow slightly higher BP but try to keep <150/90 would continue current doses of metoprolol and imdur (5) Electrolyte and fluid disorder: (6) Complicated UTI (urinary tract infection): (7) Pancytopenia: Plan 78y/o female with pancytopenia and AMS with electrolyte abnormalities and complicated UTI. has a h/o of prior takotsubo cardiomyopathy-but on echo today the EF remains normal. Pt does have some atrial arrhythmias but in telemetry review I believe it is all ST with Sinus arrhythmia. I do not see any pAF. This is a sad case and i am not sure how the overall prognosis is going to be. Would recommend palliative care consult and have conversations with the patient's . Please re-consult as necessary History of Present Illness Reason for Consultation: AMS Requesting Physician: hospitalist Attending Physician: Francisco J Phillip MD History of Present Illness Pt seen earlier this afternoon at the bedside- was present at that time. Pt has been in the hospital for a week with limited alertness and lethargy; today she was more lethargic with AMS and a stroke alert was called and she was transferred back to telemetry and cardiology was consulted Allergies Allergy/AdvReac Type Severity Reaction Status Date / Time Influenza Virus Vaccines Allergy Severe FLOWN TO Verified 09/05/23 20:43 [facility]. ciprofloxacin Allergy Intermediate RASH/BLEEDI Verified 09/05/23 20:43 NG methotrexate Allergy Intermediate RASH/PNEUMO Verified 09/05/23 20:43 N[facility] Penicillins Allergy Intermediate hives Verified 09/05/23 20:43 ranitidine Allergy Intermediate rash Verified 09/05/23 20:43 Home Medications Medication Instructions Recorded Confirmed Type folic acid 1 mg tablet 1 mg PO QAM 07/20/18 09/29/23 History prednisone 5 mg tablet 5 mg PO QAM 07/20/18 09/29/23 History albuterol sulfate 90 mcg/actuation 2 puff inhalation Q4 PRN Shortness 03/07/19 09/29/23 History aerosol inhaler (ProAir HFA) Of Breath cyanocobalamin (vitamin B-12) 2,000 mcg PO [id number] 03/07/19 09/29/23 History 1,000 mcg tablet (Vitamin B-12) vit A 300 mcg-C 200 mg-E 27 1 tab PO QAM 03/07/19 09/29/23 History mg-lutein 2 mg and minerals tablet (Ocuvite with Lutein) [id number] 8 mg-folic 400 1 tab PO QAM 11/12/19 09/29/23 History mcg-K 50 mcg-lutein 300 mcg tablet (Centrum Silver Women) montelukast 10 mg tablet 10 mg PO QAM 11/15/20 09/29/23 History latanoprost 0.005 % eye drops 1 drp OPB HS 01/03/21 09/29/23 History solifenacin 10 mg tablet (Vesicare) 10 mg PO QAM 08/22/21 09/29/23 History acetaminophen 325 mg tablet 650 mg PO Q4 PRN Fever Or Pain 03/21/22 09/29/23 History fluticasone furoate 200 1 inh inhalation DAILY 03/21/22 09/29/23 History mcg-vilanterol 25 mcg/dose inhalation powder (Breo Ellipta) thiamine HCl (vitamin B1) 100 mg 50 mg PO QAM 03/21/22 09/29/23 History tablet clopidogrel 75 mg tablet 75 mg PO QAM #30 tabs 04/01/22 09/29/23 Rx Lactobacillus rhamnosus GG 5 5 cell PO BID 08/06/22 09/29/23 History billion cell oral powder packet (Culturelle Kids Probiotics) albuterol sulfate 2.5 mg/3 mL 2.5 mg inhalation QID PRN 08/06/22 09/29/23 History (0.083 %) solution for nebulization Shortness Of Breath Or Wheezing cholecalciferol (vitamin D3) 50 50 mcg PO QAM 08/06/22 09/29/23 History mcg (2,000 unit) capsule (Vitamin D3) guaifenesin 600 mg tablet, 600 mg PO Q12 #10 tabs 09/22/23 09/29/23 Rx extended release 12 hr (Mucinex) isosorbide dinitrate 10 mg tablet 10 mg PO BID #60 tabs 09/22/23 09/29/23 Rx duloxetine 60 mg capsule,delayed 60 mg PO QAM 09/29/23 09/29/23 History release hydroxychloroquine 200 mg tablet 200 mg PO .ON HOLD 09/29/23 09/29/23 History metoprolol succinate 50 mg 50 mg PO AMHS 09/29/23 09/29/23 History tablet,extended release 24 hr miconazole nitrate 2 % topical 1 applic topical BID 09/29/23 09/29/23 History powder (Remedy Antifungal) pantoprazole 40 mg tablet,delayed 40 mg PO AMHS 09/29/23 09/29/23 History release rosuvastatin 20 mg tablet 20 mg PO HS 09/29/23 09/29/23 History silver sulfadiazine 1 % topical 1 applic topical [id number] 09/29/23 09/29/23 History cream (Silvadene) Patient History Medical History Wrist fracture, left History of stroke Thrush, oral Hyponatremia Nontraumatic rectus hematoma NSTEMI (non-ST elevated myocardial infarction) UTI (urinary tract infection) Immunosuppressed status DVT prophylaxis CKD (chronic kidney disease), stage III Acute hyponatremia Abnormal ECG Elevated troponin Syncope NSTEMI (non-ST elevated myocardial infarction) Visual hallucinations Hyponatremia RSV infection Recurrent Clostridium difficile diarrhea Chronic steroid use prednisone daily Gout H/O interstitial lung disease "drug induced- methotrexate " Osteoarthritis Glaucoma Peripheral neuropathy Dyslipidemia Rheumatoid arthritis "on chronic steroids" COPD (chronic obstructive pulmonary disease) inhalers prn Depression CKD (chronic kidney disease), stage III Gastroparesis DM type 2 (diabetes mellitus, type 2) GERD (gastroesophageal reflux disease) Migraines DJD of right shoulder NSTEMI (non-ST elevated myocardial infarction) (08/06/13) Asthma inhalers prn HTN (hypertension) Heart disease Surgical History History of tooth extraction all top teeth History of esophagogastroduodenoscopy (EGD) H/O cardiac catheterization "cath 07/2013- single vessel CAD involving apical segment LAD, medical management indicated" S/P total knee arthroplasty "left knee" History of hysterectomy H/O colonoscopy S/P rotator cuff repair "right shoulder" S/P removal of ovarian cyst Family History Father Family history of diabetes mellitus Mother Heart disease Hypertension Other No family history of adverse response to anesthesia Social History Smoking Status: Never smoker Second Hand Exposure: No; Do You Dip or Chew Tobacco: No; Tobacco Cessation Education Requested by Patient: No Hx Alcohol Use: No Hx Substance Use: No Preferred Language: Czech Communication Ability: Effective Log Operations Coordinator Required: No Beliefs That Will Affect Care: None marital status: Current Living Situation: Spouse and Parent current occupational status: retired current occupation: Former [employer] Other Information That Helps Us Care for You: No Feels Safe at Home: Yes Assistive Devices: Cane and Walker Review of Systems Review of Systems: Unobtainable due to cognitive status Physical Exam Physical Exam: NAD, lying supine in bed, not responsive to commands NC/AT, sclera non-icteric Supple No JVD Nrl S1/S2, No murmur; extra beats heard CTA b/l no w/r/r soft nt/nd no LE edema b/l skin intact Results & Data Vital Signs (Past 12 Hours) Vital Signs Temp Pulse Pulse Resp BP Pulse Ox O2 Del Method 10/03/23 15:16 36.8 C 94 H 19 152/83 H 97 Room Air 10/03/23 11:30 37.4 C 88 20 145/74 H 95 Room Air 10/03/23 08:07 37.1 C 82 18 146/69 H 99 Room Air 10/03/23 07:51 84 Laboratory Results Cardiac Enzymes 10/03/23 10/03/23 Range/Units 06:13 11:06 AST 42 H (13-39) U/L Troponin I High Sens 19.0 H (0-14) pg/ml CBC 10/03/23 Range/Units 06:13 WBC 1.29 L (4.8-10.8) K/ul RBC 2.92 L (4.20-5.40) M/uL Hgb 8.2 L (12.0-16.0) g/dl Hct 23.5 L (37.0-47.0) % Plt Count 151 (130-400) K/uL Neut # (Auto) 0.15 L* (1.40-6.50) K/uL Lymph # (Auto) 0.84 L (1.20-3.40) K/uL [place] # (Auto) 0.26 (0.11-0.59) K/uL Eos # (Auto) 0.00 (0.00-0.50) K/uL Baso # (Auto) 0.01 (0.00-0.20) K/uL Comprehensive Metabolic Panel 10/03/23 Range/Units 06:13 Sodium 130 L (136-145) mmol/L Potassium 3.1 L (3.5-5.1) mmol/L Chloride 101 (98-107) mmol/L Carbon Dioxide 19 L (21-32) mmol/L BUN 14 (6-23) mg/dl Creatinine 0.97 (0.6-1.2) mg/dl Glucose 73 (70-99(Fasting)) mg/dl Calcium 8.2 L (8.6-10.3) mg/dl AST 42 H (13-39) U/L ALT 23 (7-52) U/L Alkaline Phosphatase 104 (34-104) U/L Total Protein 5.3 L (6.0-8.3) gm/dl Albumin 2.9 L (3.4-5.0) gm/dl Intake and Output 10/03/23 10/03/23 10/03/23 06:59 14:59 22:59 Intake Total 100 / 899.2 707 / 707 Output Total 200 / 350 Balance -100 / 549.2 0 7 707 / 707 Intake: IV 100 / 599.2 707 / 707 Acetaminophen 1,000 mg In 100 100 / 100 ml @ 400 mls/hr IV NOW STA Rx#: [id number] Doxycycline Hyclate 100 mg In 100 / 200 100 / 100 Dextrose 5% Mini-B 100 ml @ 50 mls/hr IV Q12H [facility] Rx#:[id number] Potassium Phosphate 21 mmol In 507 / 507 Sodium Chloride 0.9% 500 ml @ 145 mls/hr IV ONE ONE Rx#: [id number] Oral 0 / 0 Output: Urine Amount (Catheter) 200 / 200 External 200 / 200 Other: # Unmeasured Voids 1 1 Weight 56 kg Weight Measurement Method Built in [facility] Diagnostic Findings Brain MRI 10/03/23 Negative for acute findings CTA Neck/brain 10/03/23 1. No significant stenosis, occlusion, or aneurysm within the [place]. 2. Bilateral carotid artery stenosis; Severe calcified plaque within the bilateral carotid bifurcations. This results in up to 50% stenosis within the left carotid bifurcation and up to 75% stenosis at the takeoff of the right internal carotid artery. No evidence for carotid occlusion or dissection. 3. The bilateral vertebral arteries are patent. Medications Administered Current Inpatient Medications Acetaminophen (Acetaminophen 325 Mg Tab) 650 mg PO Q4 PRN PRN Reason: Fever Or Pain Stop: 10/29/23 21:30 Last Admin: 10/02/23 12:03 Dose: 650 mg Albuterol (Albuterol Hfa 8 Gm Inhaler) 2 puffs INH Q4 PRN PRN Reason: Shortness Of Breath Stop: 10/29/23 21:30 Albuterol (Albuterol 0.083% Nebu Soln 3 Ml Vial) 2.5 mg INH QIDR PRN; Protocol PRN Reason: Shortness Of Breath Or Wheezin Stop: 10/29/23 21:30 Artificial Tears (Artificial Tears) 1 drops OPB QID [facility] Stop: 11/01/23 16:59 Last Admin: 10/03/23 18:23 Dose: 1 drops Clopidogrel Bisulfate (Clopidogrel Bisulfate 75 Mg Tab) 75 mg PO QAM [facility] Stop: 10/30/23 08:59 Last Admin: 10/03/23 13:17 Dose: Not Given Cyanocobalamin (Cyanocobalamin (B-12) 500 Mcg Tablet) 2,000 mcg PO MoWeFr@0900 [facility] Stop: 10/30/23 08:59 Last Admin: 10/02/23 08:12 Dose: 2,000 mcg Duloxetine HCl (Duloxetine Hcl 60 Mg Cap) 60 mg PO QAM [facility] Stop: 10/30/23 08:59 Last Admin: 10/03/23 12:42 Dose: Not Given Fluticasone/Vilanterol (Fluticasone/Vilanterol 200/25mcg 14 Puffs/Inhaler) 1 puffs INH DAILY [facility] Stop: 10/30/23 08:59 Last Admin: 10/03/23 15:47 Dose: Not Given Folic Acid (Folic Acid 1 Mg Tab) 1 mg PO QAM [facility] Stop: 10/30/23 08:59 Last Admin: 10/03/23 12:42 Dose: Not Given Guaifenesin (Guaifenesin 600 Mg Tabcr) 600 mg PO Q12 [facility] Stop: 10/29/23 21:44 Last Admin: 10/03/23 12:42 Dose: Not Given Doxycycline Hyclate 100 mg/ (Dextrose) 100 mls @ 50 mls/hr IV Q12H [facility] Stop: 10/04/23 12:59 Last Infusion: 10/03/23 17:53 Dose: Infused Ertapenem 1,000 mg/ Syringe 10 mls @ 2 mls/min IV Q24H [facility] Stop: 10/13/23 10:29 Last Admin: 10/03/23 13:13 Dose: 2 mls/min Daptomycin 450 mg/ Syringe 9 mls @ 4.5 mls/min IV Q24H [facility]; Protocol Stop: 10/13/23 10:29 Last Admin: 10/03/23 13:13 Dose: 4.5 mls/min Isosorbide Dinitrate (Isosorbide Dinitrate 10 Mg Tab) 10 mg PO BID@0700,1200 [facility] Stop: 10/30/23 06:59 Last Admin: 10/03/23 13:13 Dose: Not Given Lactobacillus Acidophilus (Advanced Probiotic 1250 Mg Capsule) 1 cap PO BID [facility] Stop: 10/29/23 21:44 Last Admin: 10/03/23 12:36 Dose: Not Given Latanoprost (Latanoprost 0.005% Op Soln 2.5 Ml Btl) 1 drops OPB HS [facility] Stop: 10/29/23 21:44 Last Admin: 10/02/23 20:38 Dose: 1 drops Metoprolol Succinate (Metoprolol Succ 50mg Ext Rel Tab) 50 mg PO BID [facility] Stop: 10/29/23 21:44 Last Admin: 10/03/23 13:13 Dose: Not Given Miconazole Nitrate (Miconazole Nitrate Powder 85 Gm) 1 appln TOP BID [facility] Stop: 10/29/23 21:30 Last Admin: 10/03/23 13:12 Dose: 1 appln Montelukast Sodium (Montelukast Sodium 10 Mg Tablet) 10 mg PO QAM [facility] Stop: 10/30/23 08:59 Last Admin: 10/03/23 12:36 Dose: Not Given Multivitamins (Multivitamin Tab) 1 tab PO [facility] Stop: 10/30/23 08:59 Last Admin: 10/03/23 12:32 Dose: Not Given Multivitamins/Minerals (Cerovite Adv Formula Tab) 1 tab PO [facility] Stop: 10/30/23 08:59 Last Admin: 10/03/23 12:01 Dose: Not Given Oxybutynin Chloride (Oxybutynin Chloride Xl 5 Mg Tabcr) 10 mg PO [facility] Stop: 10/30/23 08:59 Last Admin: 10/03/23 12:42 Dose: Not Given Pantoprazole Sodium (Pantoprazole 40 Mg Tab) 40 mg PO BID [facility] Stop: 10/29/23 21:44 Last Admin: 10/03/23 12:33 Dose: Not Given Potassium Chloride (Potassium Chloride Pwd 20 Meq Pack) 20 meq PO TID [facility] Stop: 11/02/23 08:59 Last Admin: 10/03/23 15:47 Dose: Not Given Prednisone (Prednisone 5 Mg Tab) 5 mg PO [facility] Stop: 10/30/23 08:59 Last Admin: 10/03/23 13:13 Dose: Not Given Rosuvastatin Calcium (Rosuvastatin Calcium 20 Mg Tab) 20 mg PO [facility] Stop: 10/29/23 21:44 Last Admin: 10/02/23 20:38 Dose: 20 mg Silver Sulfadiazine (Silver Sulfadiazine 1% Cr 50 Gm Jar) 1 appln TOP UD PRN PRN Reason: DRESSING CHANGES Stop: 10/29/23 21:30 Thiamine HCl (Thiamine Hcl 50 Mg Tablet) 50 mg PO [facility] Stop: 10/30/23 08:59 Last Admin: 10/03/23 12:34 Dose: Not Given Vitamin D (Cholecalciferol 1,000 Units 25 Mcg Tab) 2,000 units PO [facility] Stop: 10/30/23 08:59 Last Admin: 10/03/23 12:42 Dose: Not Given ECG Additional Comments: ECG: today: too much baseline wander but probably sinus 09/29/23 SR RBBB
[2023-10-03] MEDS: LATANOPROST 0.005% OP SOLN 2.5 ML BTL OPB SCH (21:38)
[2023-10-04] MEDS: ARTIFICIAL TEARS OPB SCH ×5 (08:01→21:01)
--- NOTE | 2023-10-04 08:10 | Hospitalist Progress Note ---
Date of Service October 04, 2023 Assessment & Plan (1) Pancytopenia: (2) Complicated UTI (urinary tract infection): Plan 75-year-old female with type 2 diabetes, CKD stage III, hyperlipidemia, chronic drug-induced interstitial lung disorders, asthma mild persistent, COPD, chronic right-sided heart failure, hypertension, history of CAD, history of CVA, mild aortic stenosis, paroxysmal atrial fibrillation, moderate protein calorie malnutrition, slow transit constipation, vitamin B-12 and thiamine deficiency, history of esophageal dysphagia, GERD, gout, osteoarthritis, primary open-angle glaucoma, polyneuropathy, rheumatoid arthritis involving multiple sites with positive rheumatoid factor, depression, history of C. difficile, history of COVID, history of fever of unknown origin admitted with abnormal labwork at rehab. AMS UTI Discussed with on admission, pt not at her baseline. Notes fever of 102 day of admission at [facility] rehab UA suggestive of infection, urine Cx with several organisms, repeat Ucultx positive - awaiting final results Chest XRAY with no acute changes CT chest with no acute findings in the chest Biofire negative Procal elevated at 2.31, lactate wnl Blood cx x2 with NGTD On Cefepime and empiric doxycycline initially Doxycycline, cefepime. switched cefepime to ertapenem, added vancomycin (10/03) repeat blood cultx - pending Pancytopenia Pt with WBC 1.07K, Hgb 7.7, platelets 118K on admission Tick borne testing r/o- pt states she took a tick out off her cat about a month ago Biofire as above to rule out a viral suppression cause- negative Peripheral smear ordered, SPEP recommended Hematology consult- appreciate recs. - received iv iron x2 and neupogen x2 Empiric doxycycline for possible tick borne cause discontinued. Transfuse hgb as needed if <7, currently stable >8 10/04 discussed w/ hematology - would recommend bone marrow biopsy prior to discharge Acute metabolic encephalopathy AMS - change in mental status, acute on 10/03/2023 AM Stroke ruled out Stroke alert was called - CT head, CTA head and neck negat., MRI brain negative Neurology consulted - consider EEG, LP if mental status not improving 10/04 - pt is awake, alert and answers simple questions, moves extremities, mental status much improved Hypomagnesemia Replete and monitor Hyponatremia Sodium 129 on admission Chronic Hx, Known to nephrology service Nephrology consult placed Currently trending back up, currently 133 Elevated trop Atrial fibrillation Trops elevated at 25.3, downtrended to 23.2 EKG showed atrial fibrillation On metoprolol succinate 50mg BID, not on anticoagulation Doubt ACS 10/03 AMS, abnormal ecg, troponin normal, echo also obtained as recent hx of takotsubo Echo - EF 60-655, Mild concentric LVH. No significant valvular pathology. Continue other home meds as ordered for now CODE STATUS: DNR/DNI after discussion with pt's DVT prophylaxis: Deferred in setting of thrombocytopenia/anemia Diet: HH/minced and moist Dispo: PCU Admission and Anticipated Discharge Date Admission Date: September 29, 2023 Subjective Pt seen in follow up of pancytopenia hx of pAfib. Liver mass - not yet further investigated. hx of RA. Hx of prior CVA Yesterday morning, change in mental status. Patient hardly arousable, not following commands. Not answering any questions. Stroke alert called - CT head, CTA head and neck negat., MRI brain negat. This AM she is sitting up in bed in NAD, awake and alert and eating. present at the bedside. Urine cultx positive - awaiting final results. cont. abx Also discussed w/ Dr. Scales this AM - recommends to poss. get bone marrow bx prior to discharge. Review of Systems Review of Systems: All systems reviewed & are unremarkable except as noted in Subjective Physical Exam Physical Exam: General: thin elderly F , + chronically ill appearing, sitting up in bed in NAD Neuro: awake, alert, answers simple questions, moves extremities HEENT: NC/AT CV: Irregular rate and rhythm Resp: CTAB, no increased effort of breathing Abdomen: Soft Extremities: no edema in lower extremities Results & Data Results & Data Vital Signs (Past 12 Hours) Vital Signs Temp Pulse Pulse Resp BP BP Pulse Ox 10/04/23 07:10 36.5 C 79 18 141/75 H 99 10/04/23 02:49 36.8 C 69 18 146/77 H 100 10/03/23 22:38 37 C 68 18 154/69 H 98 10/03/23 22:00 76 O2 Del Method 10/04/23 07:10 Room Air 10/04/23 02:49 Room Air 10/03/23 22:38 Room Air 10/03/23 22:00 Laboratory Results 10/04/23 10/03/23 10/03/23 Range/Units 07:20 11:06 09:10 WBC 1.50 L (4.8-10.8) K/ul RBC 3.17 L (4.20-5.40) M/uL Hgb 8.6 L (12.0-16.0) g/dl Hct 25.5 L (37.0-47.0) % MCV 80.4 (80.0-100.0) fL MCH 27.1 (25.0-34.0) pg MCHC 33.7 (32.0-36.0) g/dL RDW Std Deviation 50.6 H (36.4-46.3) fL RDW Coeff of Xochitl 17.3 H (11.5-14.5) % Plt Count 137 (130-400) K/uL MPV 8.5 L (9.4-12.4) fL Immature Gran % (Auto) 0.0 % Neut % (Auto) 10.0 % Lymph % (Auto) 69.3 % [place] % (Auto) 20.0 % Eos % (Auto) 0.0 % Baso % (Auto) 0.7 % Neut # (Auto) 0.15 L* (1.40-6.50) K/uL Lymph # (Auto) 1.04 L (1.20-3.40) K/uL [place]k # (Auto) 0.30 (0.11-0.59) K/uL Eos # (Auto) 0.00 (0.00-0.50) K/uL Baso # (Auto) 0.01 (0.00-0.20) K/uL Immature Gran # (Auto) 0.00 L (0.01-0.20) K/uL Ovalocytes 1+ Echinocytes 1+ Sodium 133 L (136-145) mmol/L Potassium 3.1 L (3.5-5.1) mmol/L Chloride 102 (98-107) mmol/L Carbon Dioxide 18 L (21-32) mmol/L Anion Gap 13 H (3-11) BUN 13 (6-23) mg/dl Creatinine 0.99 (0.6-1.2) mg/dl Est Cr Clr Drug Dosing 37.7 ml/min Est GFR ( Amer) 64.2 ml/min Est GFR (Non-Af Amer) 55.4 ml/min BUN/Creatinine Ratio 13.1 (10-20) Glucose 59 L (70-99(Fasting)) mg/dl POC Glucose 78 (70-99) mg/dl Calcium 8.2 L (8.6-10.3) mg/dl Phosphorus 2.9 D (2.5-4.9) mg/dl Magnesium 1.6 L (1.7-2.4) mg/dl Troponin I High Sens 19.0 H (0-14) pg/ml Babesia microti DNA PCR (Not Detected) Parvovirus Source Parvovirus B19 Detect 10/03/23 09/29/23 Range/Units 06:13 18:47 WBC (4.8-10.8) K/ul RBC (4.20-5.40) M/uL Hgb (12.0-16.0) g/dl Hct (37.0-47.0) % MCV (80.0-100.0) fL MCH (25.0-34.0) pg MCHC (32.0-36.0) g/dL RDW Std Deviation (36.4-46.3) fL RDW Coeff of Xochitl (11.5-14.5) % Plt Count (130-400) K/uL MPV (9.4-12.4) fL Immature Gran % (Auto) % Neut % (Auto) % Lymph % (Auto) % [place]k % (Auto) % Eos % (Auto) % Baso % (Auto) % Neut # (Auto) (1.40-6.50) K/uL Lymph # (Auto) (1.20-3.40) K/uL [place]k # (Auto) (0.11-0.59) K/uL Eos # (Auto) (0.00-0.50) K/uL Baso # (Auto) (0.00-0.20) K/uL Immature Gran # (Auto) (0.01-0.20) K/uL Ovalocytes Echinocytes Sodium (136-145) mmol/L Potassium (3.5-5.1) mmol/L Chloride (98-107) mmol/L Carbon Dioxide (21-32) mmol/L Anion Gap (3-11) BUN (6-23) mg/dl Creatinine (0.6-1.2) mg/dl Est Cr Clr Drug Dosing ml/min Est GFR ( Amer) ml/min Est GFR (Non-Af Amer) ml/min BUN/Creatinine Ratio (10-20) Glucose (70-99(Fasting)) mg/dl POC Glucose (70-99) mg/dl Calcium (8.6-10.3) mg/dl Phosphorus (2.5-4.9) mg/dl Magnesium (1.7-2.4) mg/dl Troponin I High Sens (0-14) pg/ml Babesia microti DNA PCR Not Detected (Not Detected) Parvovirus Source Pending Parvovirus B19 Detect Pending Medications Administered Current Inpatient Medications Acetaminophen (Acetaminophen 325 Mg Tab) 650 mg PO Q4 PRN PRN Reason: Fever Or Pain Stop: 10/29/23 21:30 Last Admin: 10/02/23 12:03 Dose: 650 mg Albuterol (Albuterol Hfa 8 Gm Inhaler) 2 puffs INH Q4 PRN PRN Reason: Shortness Of Breath Stop: 10/29/23 21:30 Albuterol (Albuterol 0.083% Nebu Soln 3 Ml Vial) 2.5 mg INH QIDR PRN; Protocol PRN Reason: Shortness Of Breath Or Wheezin Stop: 10/29/23 21:30 Artificial Tears (Artificial Tears) 1 drops OPB QID [facility] Stop: 11/01/23 16:59 Last Admin: 10/04/23 08:01 Dose: Not Given Clopidogrel Bisulfate (Clopidogrel Bisulfate 75 Mg Tab) 75 mg PO [facility] Stop: 10/30/23 08:59 Last Admin: 10/03/23 13:17 Dose: Not Given Cyanocobalamin (Cyanocobalamin (B-12) 500 Mcg Tablet) 2,000 mcg PO MoWeFr@0900 [facility] Stop: 10/30/23 08:59 Last Admin: 10/02/23 08:12 Dose: 2,000 mcg Duloxetine HCl (Duloxetine Hcl 60 Mg Cap) [facility] [place]: 10/30/23 08:59 Last Admin: 10/03/23 12:42 Dose: Not Given Fluticasone/Vilanterol (Fluticasone/Vilanterol 200/25mcg 14 Puffs/Inhaler) 1 puffs INH DAILY [facility] Stop: 10/30/23 08:59 Last Admin: 10/03/23 15:47 Dose: Not Given Folic Acid (Folic Acid 1 Mg Tab) 1 mg PO QAM [facility] Stop: 10/30/23 08:59 Last Admin: 10/03/23 12:42 Dose: Not Given Guaifenesin (Guaifenesin 600 Mg Tabcr) 600 mg PO Q12 [facility] Stop: 10/29/23 21:44 Last Admin: 10/03/23 21:38 Dose: Not Given Doxycycline Hyclate 100 mg/ (Dextrose) 100 mls @ 50 mls/hr IV Q12H [facility] Stop: 10/04/23 12:59 Last Infusion: 10/03/23 17:53 Dose: Infused Ertapenem 1,000 mg/ Syringe 10 mls @ 2 mls/min IV Q24H [facility] Stop: 10/13/23 10:29 Last Admin: 10/03/23 13:13 Dose: 2 mls/min Daptomycin 450 mg/ Syringe 9 mls @ 4.5 mls/min IV Q24H [facility]; Protocol Stop: 10/13/23 10:29 Last Admin: 10/03/23 13:13 Dose: 4.5 mls/min Isosorbide Dinitrate (Isosorbide Dinitrate 10 Mg Tab) 10 mg PO BID@0700,1200 [facility] Stop: 10/30/23 06:59 Last Admin: 10/03/23 13:13 Dose: Not Given Lactobacillus Acidophilus (Advanced Probiotic 1250 Mg Capsule) 1 cap PO BID [facility] Stop: 10/29/23 21:44 Last Admin: 10/03/23 21:38 Dose: Not Given Latanoprost (Latanoprost 0.005% Op Soln 2.5 Ml Btl) 1 drops OPB HS [facility] Stop: 10/29/23 21:44 Last Admin: 10/03/23 21:38 Dose: Not Given Metoprolol Succinate (Metoprolol Succ 50mg Ext Rel Tab) 50 mg PO BID [facility] Stop: 10/29/23 21:44 Last Admin: 10/03/23 21:38 Dose: Not Given Miconazole Nitrate (Miconazole Nitrate Powder 85 Gm) 1 appln TOP BID [facility] Stop: 10/29/23 21:30 Last Admin: 10/03/23 21:38 Dose: Not Given Montelukast Sodium (Montelukast Sodium 10 Mg Tablet) 10 mg PO [facility] Stop: 10/30/23 08:59 Last Admin: 10/03/23 12:36 Dose: Not Given Multivitamins (Multivitamin Tab) [facility] [place] 10/30/23 08:59 Last Admin: 10/03/23 12:32 Dose: Not Given Multivitamins/Minerals (Cerovite Adv Formula Tab) 1 tab PO [facility] Stop: 10/30/23 08:59 Last Admin: 10/03/23 12:01 Dose: Not Given Oxybutynin Chloride (Oxybutynin Chloride Xl 5 Mg Tabcr) 10 mg PO [facility] Stop: 10/30/23 08:59 Last Admin: 10/03/23 12:42 Dose: Not Given Pantoprazole Sodium (Pantoprazole 40 Mg Tab) 40 mg PO BID [facility] Stop: 10/29/23 21:44 Last Admin: 10/03/23 21:38 Dose: Not Given Potassium Chloride (Potassium Chloride Pwd 20 Meq Pack) 20 meq PO TID [facility] Stop: 11/02/23 08:59 Last Admin: 10/03/23 21:37 Dose: Not Given Prednisone (Prednisone 5 Mg Tab) 5 mg PO [facility] Stop: 10/30/23 08:59 Last Admin: 10/03/23 13:13 Dose: Not Given Rosuvastatin Calcium (Rosuvastatin Calcium 20 Mg Tab) 20 mg PO [facility] Stop: 10/29/23 21:44 Last Admin: 10/02/23 20:38 Dose: 20 mg Silver Sulfadiazine (Silver Sulfadiazine 1% Cr 50 Gm Jar) 1 appln TOP UD PRN PRN Reason: DRESSING CHANGES Stop: 10/29/23 21:30 Thiamine HCl (Thiamine Hcl 50 Mg Tablet) 50 mg PO [facility] Stop: 10/30/23 08:59 Last Admin: 10/03/23 12:34 Dose: Not Given Vitamin D (Cholecalciferol 1,000 Units 25 Mcg Tab) 2,000 units PO [facility] Stop: 10/30/23 08:59 Last Admin: 10/03/23 12:42 Dose: Not Given
[2023-10-04 08:22] LABS: BUN Creatinine Ratio 13.1 (10-20); Calcium 8.2 mg/dl (8.6-10.3); Creatinine Clr Calc Pharmacy 37.7 ml/min; Est GFR (African American) 64.2 ml/min; Est GFR (Non-African American) 55.4 ml/min; Magnesium 1.6 mg/dl (1.7-2.4); Phosphorus 2.9 mg/dl (2.5-4.9); Potassium 3.1 mmol/L (3.5-5.1)
[2023-10-04 08:45] LABS: Basophils # (auto) 0.01 K/uL (0.00-0.20); Basophils % (auto) 0.7 %; Echinocytes 1+; Hematocrit (blood only) 25.5 % (37.0-47.0); Hemoglobin 8.6 g/dl (12.0-16.0); Lymphocytes # (auto) 1.04 K/uL (1.20-3.40); Lymphocytes % (auto) 69.3 %; Mean Corpuscular Hemoglobin 27.1 pg (25.0-34.0); Mean Corpuscular Hgb Conc 33.7 g/dL (32.0-36.0); Mean Corpuscular Volume 80.4 fL (80.0-100.0); Mean Platelet Volume 8.5 fL (9.4-12.4); Neutrophils # (auto) 0.15 K/uL (1.40-6.50); Ovalocytes 1+; Platelet Count 137 K/uL (130-400); RDW Coefficient of Variation 17.3 % (11.5-14.5); RDW Standard Deviation 50.6 fL (36.4-46.3); Red Blood Count 3.17 M/uL (4.20-5.40)
[2023-10-04] MEDS ORDERED: MAGNESIUM SULFATE / D5W 1 GM/100 ML BAG IV ONE (09:07)
[2023-10-04] MEDS ORDERED: POTASSIUM PHOS 3 MMOL/1 ML INFUSION IV STA (09:07)
[2023-10-04] MEDS: DAPTOmycin 450 MG in SYRINGE 0 ML IV SCH (09:41)
[2023-10-04] MEDS: ERTAPENEM SODIUM 1,000 MG in SYRINGE 0 ML IV SCH (09:41)
[2023-10-04] MEDS: POTASSIUM CHLORIDE / WTR 10 MEQ/100 ML PLCT IV SCH ×2 (09:42→11:30)
[2023-10-04] MEDS: DOXYCYCLINE HYCLATE 100 MG in DEXTROSE 5% MINI-B 100 ML IV SCH (09:52)
[2023-10-04] MEDS: POTASSIUM CHLORIDE PWD 20 MEQ PACK PO SCH ×3 (09:53→21:04)
[2023-10-04] MEDS: CEROVITE ADV FORMULA TAB PO SCH (09:53)
[2023-10-04] MEDS: DULoxetine HCL 60 MG CAP PO SCH ×2 (09:54→11:40)
[2023-10-04] MEDS: FOLIC ACID 1 MG TAB PO SCH (09:54)
[2023-10-04] MEDS: CHOLECALCIFEROL 25 MCG (1000 UNITS) TAB PO SCH (09:54)
[2023-10-04] MEDS: guaiFENesin 600 MG TABCR PO SCH ×2 (09:54→21:04)
[2023-10-04] MEDS: FLUTICASONE/VILANTEROL 200/25MCG 14 PUFFS/INHALER INH SCH (09:58)
[2023-10-04] MEDS: MULTIVITAMIN TAB PO SCH (09:58)
[2023-10-04] MEDS: MONTELUKAST SODIUM 10 MG TABLET PO SCH (09:58)
[2023-10-04] MEDS: ADVANCED PROBIOTIC 1250 MG CAPSULE PO SCH ×2 (10:01→21:05)
[2023-10-04] MEDS: MICONAZOLE NITRATE POWDER 85 GM TOP SCH ×2 (10:04→21:10)
[2023-10-04] MEDS: ISOSORBIDE DINITRATE 10 MG TAB PO SCH ×2 (10:12→14:35)
[2023-10-04] MEDS: CLOPIDOGREL BISULFATE 75 MG TAB PO SCH (10:13)
[2023-10-04] MEDS: METOPROLOL SUCC 50MG EXT REL TAB PO SCH ×2 (10:16→21:05)
[2023-10-04] MEDS ORDERED: POTASSIUM PHOSPHATE 15 MMOL in SODIUM CHLORIDE 0.9% 250 ML IV SCH (11:15)
[2023-10-04] MEDS: predniSONE 5 MG TAB PO SCH (11:29)
[2023-10-04] MEDS: THIAMINE HCL 50 MG TABLET PO SCH (11:29)
[2023-10-04] MEDS: PANTOprazole 40 MG TAB PO SCH ×2 (11:29→21:04)
[2023-10-04] MEDS: OXYBUTYNIN CHLORIDE XL 5 MG TABCR PO SCH (11:29)
[2023-10-04] MEDS: LATANOPROST 0.005% OP SOLN 2.5 ML BTL OPB SCH (21:06)
[2023-10-05 07:32] LABS: Albumin 2.6 g/dL (3.8-4.8); Alpha 1 Globulin 0.5 g/dL (0.2-0.3); Alpha 2 Globulin 0.8 g/dL (0.5-0.9); Beta-1-Globulin 0.3 g/dL (0.4-0.6); Beta-2-Globulin 0.3 g/dL (0.2-0.5); Gamma Globulin 0.6 g/dL (0.8-1.7); Monoclonal Protein Band 1 DNR g/dL (NONE DETECTED); Monoclonal Protein Band 2 DNR g/dL (NONE DETECTED); Monoclonal Protein Band 3 DNR g/dL (NONE DETECTED); Total Protein 5.1 g/dL (6.1-8.1)
[2023-10-05 07:41] LABS: BUN Creatinine Ratio 17.1 (10-20); Calcium 8.3 mg/dl (8.6-10.3); Creatinine Clr Calc Pharmacy 35.5 ml/min; Est GFR (African American) 59.7 ml/min; Est GFR (Non-African American) 51.5 ml/min; Magnesium 1.7 mg/dl (1.7-2.4); Phosphorus 1.8 mg/dl (2.5-4.9); Potassium 4.2 mmol/L (3.5-5.1)
[2023-10-05 08:13] LABS: Hematocrit (blood only) 23.9 % (37.0-47.0); Hemoglobin 7.7 g/dl (12.0-16.0); Mean Corpuscular Hemoglobin 26.8 pg (25.0-34.0); Mean Corpuscular Hgb Conc 32.2 g/dL (32.0-36.0); Mean Corpuscular Volume 83.3 fL (80.0-100.0); Mean Platelet Volume 8.3 fL (9.4-12.4); Platelet Count 132 K/uL (130-400); RDW Standard Deviation 53.6 fL (36.4-46.3); Red Blood Count 2.87 M/uL (4.20-5.40); White Blood Count 1.51 K/ul (4.8-10.8)
--- NOTE | 2023-10-05 08:16 | Hospitalist Progress Note ---
Date of Service October 05, 2023 Assessment & Plan (1) Pancytopenia: (2) Complicated UTI (urinary tract infection): Plan 75-year-old female with type 2 diabetes, CKD stage III, hyperlipidemia, chronic drug-induced interstitial lung disorders, asthma mild persistent, COPD, chronic right-sided heart failure, hypertension, history of CAD, history of CVA, mild aortic stenosis, paroxysmal atrial fibrillation, moderate protein calorie malnutrition, slow transit constipation, vitamin B-12 and thiamine deficiency, history of esophageal dysphagia, GERD, gout, osteoarthritis, primary open-angle glaucoma, polyneuropathy, rheumatoid arthritis involving multiple sites with positive rheumatoid factor, depression, history of C. difficile, history of COVID, history of fever of unknown origin admitted with abnormal labwork at rehab. AMS UTI Discussed with on admission, pt not at her baseline. Notes fever of 102 day of admission at [facility] rehab UA suggestive of infection, urine Cx with several organisms, repeat Ucultx positive - VRE - cont. dapto Chest XRAY with no acute changes CT chest with no acute findings in the chest Biofire negative Procal elevated at 2.31, lactate wnl Blood cx x2 with NGTD On Cefepime and empiric doxycycline initially Doxycycline, cefepime. switched cefepime to ertapenem, added daptomycin (10/03) repeat blood cultx - pending repeat Ucultx - VRE - cont. dapto Pancytopenia Pt with WBC 1.07K, Hgb 7.7, platelets 118K on admission Tick borne testing r/o- pt states she took a tick out off her cat about a month ago Biofire as above to rule out a viral suppression cause- negative Peripheral smear ordered, SPEP recommended Hematology consult- appreciate recs. - received iv iron x2 and neupogen x2, give iv iron 3 rd dose Empiric doxycycline for possible tick borne cause discontinued. Transfuse hgb as needed if <7, currently stable >8 10/04 discussed w/ hematology - would recommend bone marrow biopsy prior to discharge Acute metabolic encephalopathy AMS - change in mental status, acute on 10/03/2023 AM Stroke ruled out Stroke alert was called - CT head, CTA head and neck negat., MRI brain negative Neurology consulted - consider EEG, LP if mental status not improving 10/04-10/05 - pt is awake, alert and answers simple questions, moves extremities, mental status much improved Hypomagnesemia Replete and monitor Hyponatremia Sodium 129 on admission Chronic Hx, Known to nephrology service Nephrology consult placed Currently trending back up, currently 133 Elevated trop Atrial fibrillation Trops elevated at 25.3, downtrended to 23.2 EKG showed atrial fibrillation On metoprolol succinate 50mg BID, not on anticoagulation Doubt ACS 10/03 AMS, abnormal ecg, troponin normal, echo also obtained as recent hx of takotsubo Echo - EF 60-655, Mild concentric LVH. No significant valvular pathology. Continue other home meds as ordered for now CODE STATUS: DNR/DNI after discussion with pt's DVT prophylaxis: Deferred in setting of thrombocytopenia/anemia Diet: HH/minced and moist Dispo: PCU Admission and Anticipated Discharge Date Admission Date: September 29, 2023 Subjective Pt seen in follow up of pancytopenia hx of pAfib. Liver mass - not yet further investigated. hx of RA. Hx of prior CVA AMS 2 days ago - Stroke alert called - CT head, CTA head and neck negat., MRI brain negat. This AM she is sitting up in bed in NAD, awake and alert and eating. present at the bedside. Urine cultx positive - for VRE, cont. dapto Also discussed w/ Dr. Scales yesterday AM - recommends to poss. get bone marrow bx prior to discharge. Review of Systems Review of Systems: All systems reviewed & are unremarkable except as noted in Subjective Physical Exam Physical Exam: General: thin elderly F , + chronically ill appearing, sitting up in bed in NAD Neuro: awake, alert, answers simple questions, moves extremities HEENT: NC/AT CV: Irregular rate and rhythm Resp: CTAB, no increased effort of breathing Abdomen: Soft Extremities: no edema in lower extremities Results & Data Results & Data Vital Signs (Past 12 Hours) Vital Signs Temp Pulse Pulse Resp BP Pulse Ox O2 Del Method 10/05/23 07:08 36.8 C 83 16 168/66 H 99 Room Air 10/05/23 02:07 36.8 C 84 16 132/73 100 Room Air 10/04/23 23:20 36.9 C 94 H 18 161/70 H 99 Room Air 10/04/23 23:17 105 H Laboratory Results 10/05/23 10/05/23 10/04/23 Range/Units 07:31 06:40 18:43 WBC 1.51 L (4.8-10.8) K/ul RBC 2.87 L (4.20-5.40) M/uL Hgb 7.7 L (12.0-16.0) g/dl Hct 23.9 L (37.0-47.0) % MCV 83.3 (80.0-100.0) fL MCH 26.8 (25.0-34.0) pg MCHC 32.2 (32.0-36.0) g/dL RDW Std Deviation 53.6 H (36.4-46.3) fL RDW Coeff of Xochitl 18.0 H (11.5-14.5) % Plt Count 132 (130-400) K/uL MPV 8.3 L (9.4-12.4) fL Immature Gran % (Auto) % Neut % (Auto) % Lymph % (Auto) % [place] % (Auto) % Eos % (Auto) % Baso % (Auto) % Neut # (Auto) (1.40-6.50) K/uL Lymph # (Auto) (1.20-3.40) K/uL [place] # (Auto) (0.11-0.59) K/uL Eos # (Auto) (0.00-0.50) K/uL Baso # (Auto) (0.00-0.20) K/uL Immature Gran # (Auto) (0.01-0.20) K/uL Absolute Nucleated RBC (0.00-0.12) K/uL Nucleated RBC % (auto) % Ovalocytes Echinocytes Sodium 130 L (136-145) mmol/L Potassium 4.2 D (3.5-5.1) mmol/L Chloride 102 (98-107) mmol/L Carbon Dioxide 21 (21-32) mmol/L Anion Gap 7 (3-11) BUN 18 (6-23) mg/dl Creatinine 1.05 (0.6-1.2) mg/dl Est Cr Clr Drug Dosing 35.5 ml/min Est GFR ( Amer) 59.7 ml/min Est GFR (Non-Af Amer) 51.5 ml/min BUN/Creatinine Ratio 17.1 (10-20) Glucose 149 H (70-99(Fasting)) mg/dl POC Glucose 179 H (70-99) mg/dl Calcium 8.3 L (8.6-10.3) mg/dl Phosphorus 1.8 L D (2.5-4.9) mg/dl Magnesium 1.7 (1.7-2.4) mg/dl Total Protein (PEP) (6.1-8.1) g/dL Albumin (PEP) (3.8-4.8) g/dL Drndm-9-Cvabiqgtr (0.2-0.3) g/dL Moapk-6-Bswepwucf (0.5-0.9) g/dL Uzca-8-Hpgbdzlu (0.4-0.6) g/dL Lmbb-0-Rmfjplvk (0.2-0.5) g/dL Gamma Globulins (0.8-1.7) g/dL Monoclonal Peak 3 (NONE DETECTED) g/dL Ser Monoclonl Protein (NONE DETECTED) g/dL Ser Monoclonal Prot 2 (NONE DETECTED) g/dL PEP Interpretation 10/04/23 10/01/23 Range/Units 07:20 07:40 WBC 1.50 L (4.8-10.8) K/ul RBC 3.17 L (4.20-5.40) M/uL Hgb 8.6 L (12.0-16.0) g/dl Hct 25.5 L (37.0-47.0) % MCV 80.4 (80.0-100.0) fL MCH 27.1 (25.0-34.0) pg MCHC 33.7 (32.0-36.0) g/dL RDW Std Deviation 50.6 H (36.4-46.3) fL RDW Coeff of Xochitl 17.3 H (11.5-14.5) % Plt Count 137 (130-400) K/uL MPV 8.5 L (9.4-12.4) fL Immature Gran % (Auto) 0.0 % Neut % (Auto) 10.0 % Lymph % (Auto) 69.3 % [place] % (Auto) 20.0 % Eos % (Auto) 0.0 % Baso % (Auto) 0.7 % Neut # (Auto) 0.15 L* (1.40-6.50) K/uL Lymph # (Auto) 1.04 L (1.20-3.40) K/uL [place] # (Auto) 0.30 (0.11-0.59) K/uL Eos # (Auto) 0.00 (0.00-0.50) K/uL Baso # (Auto) 0.01 (0.00-0.20) K/uL Immature Gran # (Auto) 0.00 L (0.01-0.20) K/uL Absolute Nucleated RBC (0.00-0.12) K/uL Nucleated RBC % (auto) % Ovalocytes 1+ Echinocytes 1+ Sodium 133 L (136-145) mmol/L Potassium 3.1 L (3.5-5.1) mmol/L Chloride 102 (98-107) mmol/L Carbon Dioxide 18 L (21-32) mmol/L Anion Gap 13 H (3-11) BUN 13 (6-23) mg/dl Creatinine 0.99 (0.6-1.2) mg/dl Est Cr Clr Drug Dosing 37.7 ml/min Est GFR ( Amer) 64.2 ml/min Est GFR (Non-Af Amer) 55.4 ml/min BUN/Creatinine Ratio 13.1 (10-20) Glucose 59 L (70-99(Fasting)) mg/dl POC Glucose (70-99) mg/dl Calcium 8.2 L (8.6-10.3) mg/dl Phosphorus 2.9 D (2.5-4.9) mg/dl Magnesium 1.6 L (1.7-2.4) mg/dl Total Protein (PEP) 5.1 L (6.1-8.1) g/dL Albumin (PEP) 2.6 L (3.8-4.8) g/dL Lvgog-3-Ptoiocsjh 0.5 H (0.2-0.3) g/dL Enqvy-4-Tsvbpydhj 0.8 (0.5-0.9) g/dL Gnhk-9-Kfzalkda 0.3 L (0.4-0.6) g/dL Zvka-1-Espgxmsk 0.3 (0.2-0.5) g/dL Gamma Globulins 0.6 L (0.8-1.7) g/dL Monoclonal Peak 3 DNR (NONE DETECTED) g/dL Ser Monoclonl Protein DNR (NONE DETECTED) g/dL Ser Monoclonal Prot 2 DNR (NONE DETECTED) g/dL PEP Interpretation SEE NOTE Medications Administered Current Inpatient Medications Acetaminophen (Acetaminophen 325 Mg Tab) 650 mg PO Q4 PRN PRN Reason: Fever Or Pain Stop: 10/29/23 21:30 Last Admin: 10/02/23 12:03 Dose: 650 mg Albuterol (Albuterol Hfa 8 Gm Inhaler) 2 puffs INH Q4 PRN PRN Reason: Shortness Of Breath Stop: 10/29/23 21:30 Albuterol (Albuterol 0.083% Nebu Soln 3 Ml Vial) 2.5 mg INH QIDR PRN; Protocol PRN Reason: Shortness Of Breath Or Wheezin Stop: 10/29/23 21:30 Artificial Tears (Artificial Tears) 1 drops OPB QID [facility] Stop: 11/01/23 16:59 Last Admin: 10/04/23 21:01 Dose: 1 drops Clopidogrel Bisulfate (Clopidogrel Bisulfate 75 Mg Tab) 75 mg PO QAM [facility] Stop: 10/30/23 08:59 Last Admin: 10/04/23 10:13 Dose: 75 mg Cyanocobalamin (Cyanocobalamin (B-12) 500 Mcg Tablet) 2,000 mcg PO MoWeFr@0900 [facility] Stop: 10/30/23 08:59 Last Admin: 10/02/23 08:12 Dose: 2,000 mcg Duloxetine HCl (Duloxetine Hcl 60 Mg Cap) [facility] [place] [place]: 10/30/23 08:59 Last Admin: 10/04/23 11:40 Dose: 60 mg Fluticasone/Vilanterol (Fluticasone/Vilanterol 200/25mcg 14 Puffs/Inhaler) 1 puffs INH DAILY [facility] Stop: 10/30/23 08:59 Last Admin: 10/04/23 09:58 Dose: Not Given Folic Acid (Folic Acid 1 Mg Tab) 1 mg PO QAM [facility] Stop: 10/30/23 08:59 Last Admin: 10/04/23 09:54 Dose: Not Given Guaifenesin (Guaifenesin 600 Mg Tabcr) 600 mg PO Q12 [facility] Stop: 10/29/23 21:44 Last Admin: 10/04/23 21:04 Dose: 600 mg Ertapenem 1,000 mg/ Syringe 10 mls @ 2 mls/min IV Q24H [facility] Stop: 10/13/23 10:29 Last Admin: 10/04/23 09:41 Dose: 2 mls/min Daptomycin 450 mg/ Syringe 9 mls @ 4.5 mls/min IV Q24H [facility]; Protocol Stop: 10/13/23 10:29 Last Admin: 10/04/23 09:41 Dose: 4.5 mls/min Isosorbide Dinitrate (Isosorbide Dinitrate 10 Mg Tab) 10 mg PO BID@0700,1200 [facility] Stop: 10/30/23 06:59 Last Admin: 10/04/23 14:35 Dose: 10 mg Lactobacillus Acidophilus (Advanced Probiotic 1250 Mg Capsule) 1 cap PO BID [facility] Stop: 10/29/23 21:44 Last Admin: 10/04/23 21:05 Dose: 1 cap Latanoprost (Latanoprost 0.005% Op Soln 2.5 Ml Btl) 1 drops OPB HS [facility] Stop: 10/29/23 21:44 Last Admin: 10/04/23 21:06 Dose: 1 drops Metoprolol Succinate (Metoprolol Succ 50mg Ext Rel Tab) 50 mg PO BID [facility] Stop: 10/29/23 21:44 Last Admin: 10/04/23 21:05 Dose: 50 mg Miconazole Nitrate (Miconazole Nitrate Powder 85 Gm) 1 appln TOP BID [facility] Stop: 10/29/23 21:30 Last Admin: 10/04/23 21:10 Dose: 1 appln Montelukast Sodium (Montelukast Sodium 10 Mg Tablet) 10 mg PO QAM [facility] Stop: 10/30/23 08:59 Last Admin: 10/04/23 09:58 Dose: Not Given Multivitamins (Multivitamin Tab) 1 tab PO QAM [facility] Stop: 10/30/23 08:59 Last Admin: 10/04/23 09:58 Dose: Not Given Multivitamins/Minerals (Cerovite Adv Formula Tab) 1 tab PO QAM [facility] Stop: 10/30/23 08:59 Last Admin: 10/04/23 09:53 Dose: Not Given Oxybutynin Chloride (Oxybutynin Chloride Xl 5 Mg Tabcr) 10 mg PO QAM [facility] Stop: 10/30/23 08:59 Last Admin: 10/04/23 11:29 Dose: 10 mg Pantoprazole Sodium (Pantoprazole 40 Mg Tab) 40 mg PO BID [facility] Stop: 10/29/23 21:44 Last Admin: 10/04/23 21:04 Dose: 40 mg Potassium Chloride (Potassium Chloride Pwd 20 Meq Pack) 20 meq PO TID [facility] Stop: 11/02/23 08:59 Last Admin: 10/04/23 21:04 Dose: 20 meq Prednisone (Prednisone 5 Mg Tab) 5 mg PO [facility] Stop: 10/30/23 08:59 Last Admin: 10/04/23 11:29 Dose: 5 mg Rosuvastatin Calcium (Rosuvastatin Calcium 20 Mg Tab) 20 mg PO HS [facility] Stop: 10/29/23 21:44 Last Admin: 10/02/23 20:38 Dose: 20 mg Silver Sulfadiazine (Silver Sulfadiazine 1% Cr 50 Gm Jar) 1 appln TOP UD PRN PRN Reason: DRESSING CHANGES Stop: 10/29/23 21:30 Thiamine HCl (Thiamine Hcl 50 Mg Tablet) 50 mg PO [facility] Stop: 10/30/23 08:59 Last Admin: 10/04/23 11:29 Dose: 50 mg Vitamin D (Cholecalciferol 1,000 Units 25 Mcg Tab) 2,000 units PO [facility] Stop: 10/30/23 08:59 Last Admin: 10/04/23 09:54 Dose: Not Given
[2023-10-05 08:23] LABS: ALC (manual) 1.19 K/uL (1.2-3.4); ANC (manual) 0.02 K/uL (1.4-6.5); Basophils # (manual) 0.05 K/uL (0-0.2); Basophils % (manual) 3 %; Large Granular Lymph # (manua 0.71 K/uL; Large Granular Lymph % (manual) 47 %; Lymphocytes # (manual) 0.48 K/uL (1.2-3.4); Lymphocytes % (manual) 32 %; Monocytes # (manual) 0.24 K/uL (0.11-0.59); Monocytes % (manual) 16 %; Neutrophils # (manual) 0.02 K/uL (1.40-6.50); Neutrophils % (manual) 1 %; Polychromasia 1+; Promyelocytes # (manual) 0.02 K/uL (0-0); Promyelocytes % (manual) 1 %
[2023-10-05] MEDS ORDERED: SODIUM PHOSPHATE 3 MMOL/1 ML INFUSION IV STA (08:55)
[2023-10-05] MEDS: ISOSORBIDE DINITRATE 10 MG TAB PO SCH ×2 (09:04→15:08)
[2023-10-05] MEDS: MONTELUKAST SODIUM 10 MG TABLET PO SCH (09:04)
[2023-10-05] MEDS: POTASSIUM CHLORIDE PWD 20 MEQ PACK PO SCH ×2 (09:05→20:03)
[2023-10-05] MEDS: ARTIFICIAL TEARS OPB SCH ×4 (09:05→20:02)
[2023-10-05] MEDS: MULTIVITAMIN TAB PO SCH (09:06)
[2023-10-05] MEDS: CEROVITE ADV FORMULA TAB PO SCH (09:06)
[2023-10-05] MEDS: FLUTICASONE/VILANTEROL 200/25MCG 14 PUFFS/INHALER INH SCH (09:06)
[2023-10-05] MEDS: CHOLECALCIFEROL 25 MCG (1000 UNITS) TAB PO SCH (09:07)
[2023-10-05] MEDS: FOLIC ACID 1 MG TAB PO SCH (09:07)
[2023-10-05] MEDS: CLOPIDOGREL BISULFATE 75 MG TAB PO SCH (09:08)
[2023-10-05] MEDS: predniSONE 5 MG TAB PO SCH (09:08)
[2023-10-05] MEDS: OXYBUTYNIN CHLORIDE XL 5 MG TABCR PO SCH (09:09)
[2023-10-05] MEDS: DULoxetine HCL 60 MG CAP PO SCH (09:09)
[2023-10-05] MEDS: ADVANCED PROBIOTIC 1250 MG CAPSULE PO SCH ×2 (09:10→20:04)
[2023-10-05] MEDS: guaiFENesin 600 MG TABCR PO SCH ×2 (09:11→20:04)
[2023-10-05] MEDS: MICONAZOLE NITRATE POWDER 85 GM TOP SCH ×2 (09:11→20:03)
[2023-10-05] MEDS: PANTOprazole 40 MG TAB PO SCH ×2 (09:13→20:06)
[2023-10-05] MEDS: THIAMINE HCL 50 MG TABLET PO SCH (09:13)
[2023-10-05] MEDS: METOPROLOL SUCC 50MG EXT REL TAB PO SCH ×2 (09:14→20:05)
[2023-10-05] MEDS ORDERED: SODIUM PHOSPHATE 21 MMOL in SODIUM CHLORIDE 0.9% 500 ML IV ONE (09:30)
--- NOTE | 2023-10-05 09:35 | Nephrology Progress Note ---
Date of Service October 05, 2023 Assessment & Plan Admission and Anticipated Discharge Date Admission Date: September 29, 2023 Subjective Assessment & Plan (1) Electrolyte and fluid disorder: Plan: stable mild hyponatremia (presenting sodium 129 up to 133 yesterday but now dropped again to 130) mild hypocalcemia, low phosphate with normal magnesium levels. urine osm is consistent with combination of Low Solute diet and SIADH. Add FFR 1500 ml per day. her protein intake /Solid food intake is very low--Now on Supplement--to continue. Low Phos and low na--will give na phosphate today 21 mmol. K is normal--lower to 20 bid. daily bmp, mag, phos Will be difficult to change serum Na much without major increase in Solid food intake. Subjective Seems more alert than yesterday. Was trying to eat Breakfast but not much. Answered basic Questions. Denies SOB or any pain. Spoke with RN also and no acute new issues noted. Physical Exam Constitutional: well developed, no acute distress Eyes: EOM intact bilaterally ENMT: Ears: no external ear abnormality Nose: no external nose abnormality Mouth: + dry oral mucous membranes Neck: no nuchal rigidity Respiratory: normal respiratory effort Auscultation: + diminished lung sounds Cardiovascular: Rate/Rhythm: regular rate and regular rhythm Extremities: no edema Gastrointestinal (Abdomen): Inspection/Auscultation: normal bowel sounds Percussion/Palpation: abdomen soft; abdomen nontender Musculoskeletal: Extremities: strength 5/5 throughout Skin: no rashes, warm and dry Results & Data Vital Signs (Past 12 Hours) Vital Signs Temp Pulse Pulse Resp BP Pulse Ox O2 Del Method 10/05/23 07:08 36.8 C 83 16 168/66 H 99 Room Air 10/05/23 02:07 36.8 C 84 16 132/73 100 Room Air 10/04/23 23:20 36.9 C 94 H 18 161/70 H 99 Room Air 10/04/23 23:17 105 H
[2023-10-05] MEDS: DAPTOmycin 450 MG in SYRINGE 0 ML IV SCH (10:51)
[2023-10-05] MEDS: CYANOCOBALAMIN (B-12) 500 MCG TABLET PO SCH (10:51)
[2023-10-05] MEDS: ERTAPENEM SODIUM 1,000 MG in SYRINGE 0 ML IV SCH (10:51)
[2023-10-05] MEDS ORDERED: IRON SUCROSE 200 MG in 0.9 % SODIUM CHLORIDE 100 ML IV SCH (12:00)
[2023-10-05] MEDS: LATANOPROST 0.005% OP SOLN 2.5 ML BTL OPB SCH (20:03)
[2023-10-06] MEDS: ARTIFICIAL TEARS OPB SCH ×4 (07:23→20:23)
[2023-10-06] MEDS: CHOLECALCIFEROL 25 MCG (1000 UNITS) TAB PO SCH (07:23)
[2023-10-06] MEDS: ADVANCED PROBIOTIC 1250 MG CAPSULE PO SCH ×2 (07:23→20:24)
[2023-10-06] MEDS: guaiFENesin 600 MG TABCR PO SCH ×2 (07:24→20:24)
[2023-10-06] MEDS: THIAMINE HCL 50 MG TABLET PO SCH (07:24)
[2023-10-06] MEDS: POTASSIUM CHLORIDE PWD 20 MEQ PACK PO SCH ×2 (07:25→20:25)
[2023-10-06] MEDS: ISOSORBIDE DINITRATE 10 MG TAB PO SCH ×2 (07:25→11:14)
[2023-10-06] MEDS: predniSONE 5 MG TAB PO SCH (07:25)
[2023-10-06] MEDS: MONTELUKAST SODIUM 10 MG TABLET PO SCH (07:26)
[2023-10-06] MEDS: DULoxetine HCL 60 MG CAP PO SCH (07:26)
[2023-10-06] MEDS: OXYBUTYNIN CHLORIDE XL 5 MG TABCR PO SCH (07:26)
[2023-10-06] MEDS: CEROVITE ADV FORMULA TAB PO SCH (07:26)
[2023-10-06] MEDS: FLUTICASONE/VILANTEROL 200/25MCG 14 PUFFS/INHALER INH SCH (07:27)
[2023-10-06] MEDS: MULTIVITAMIN TAB PO SCH (07:27)
[2023-10-06] MEDS: FOLIC ACID 1 MG TAB PO SCH (07:27)
[2023-10-06 07:39] LABS: Hematocrit (blood only) 26.1 % (37.0-47.0); Hemoglobin 8.9 g/dl (12.0-16.0); Mean Corpuscular Hemoglobin 27.9 pg (25.0-34.0); Mean Corpuscular Hgb Conc 34.1 g/dL (32.0-36.0); Mean Corpuscular Volume 81.8 fL (80.0-100.0); Mean Platelet Volume 8.8 fL (9.4-12.4); Platelet Count 140 K/uL (130-400); RDW Standard Deviation 52.3 fL (36.4-46.3); Red Blood Count 3.19 M/uL (4.20-5.40); White Blood Count 1.66 K/ul (4.8-10.8)
[2023-10-06] MEDS: PANTOprazole 40 MG TAB PO SCH ×2 (07:50→20:29)
[2023-10-06] MEDS: MICONAZOLE NITRATE POWDER 85 GM TOP SCH ×2 (07:51→20:25)
--- NOTE | 2023-10-06 07:54 | Hospitalist Progress Note ---
Date of Service October 06, 2023 Assessment & Plan (1) Pancytopenia: (2) Complicated UTI (urinary tract infection): Plan 75-year-old female with type 2 diabetes, CKD stage III, hyperlipidemia, chronic drug-induced interstitial lung disorders, asthma mild persistent, COPD, chronic right-sided heart failure, hypertension, history of CAD, history of CVA, mild aortic stenosis, paroxysmal atrial fibrillation, moderate protein calorie malnutrition, slow transit constipation, vitamin B-12 and thiamine deficiency, history of esophageal dysphagia, GERD, gout, osteoarthritis, primary open-angle glaucoma, polyneuropathy, rheumatoid arthritis involving multiple sites with positive rheumatoid factor, depression, history of C. difficile, history of COVID, history of fever of unknown origin admitted with abnormal labwork at rehab. AMS UTI Discussed with on admission, pt not at her baseline. Notes fever of 102 day of admission at [facility] rehab UA suggestive of infection, urine Cx with several organisms, repeat Ucultx positive - VRE - cont. dapto Chest XRAY with no acute changes CT chest with no acute findings in the chest Biofire negative Procal elevated at 2.31, lactate wnl Blood cx x2 with NGTD On Cefepime and empiric doxycycline initially Doxycycline, cefepime. switched cefepime to ertapenem, added daptomycin (10/03). ertapenem now stopped as ucultx posit.for vre repeat blood cultx - negat for 48 hrs. Fungal cultx - pending repeat Ucultx - VRE - cont. dapto Pancytopenia Pt with WBC 1.07K, Hgb 7.7, platelets 118K on admission Tick borne testing r/o- pt states she took a tick out off her cat about a month ago Biofire as above to rule out a viral suppression cause- negative Peripheral smear ordered, SPEP recommended Hematology consult- appreciate recs. - received iv iron x3 and neupogen x2 Empiric doxycycline for possible tick borne cause discontinued. Transfuse hgb as needed if <7, currently stable >8 10/04 discussed w/ hematology - would recommend bone marrow biopsy prior to discharge Acute metabolic encephalopathy AMS - change in mental status, acute on 10/03/2023 AM Stroke ruled out Stroke alert was called - CT head, CTA head and neck negat., MRI brain negative Neurology consulted - consider EEG, LP if mental status not improving 10/04-10/06 - pt is awake, alert and answers simple questions, moves extremities, mental status overall improved Hypomagnesemia Replete and monitor Hyponatremia Sodium 129 on admission Chronic Hx, Known to nephrology service Nephrology consult placed Was trending back up, however now down to 127. Nephrology following. Elevated trop Atrial fibrillation Trops elevated at 25.3, downtrended to 23.2 EKG showed atrial fibrillation On metoprolol succinate 50mg BID, not on anticoagulation Doubt ACS 10/03 AMS, abnormal ecg, troponin normal, echo also obtained as recent hx of takotsubo Echo - EF 60-655, Mild concentric LVH. No significant valvular pathology. Continue other home meds as ordered for now CODE STATUS: DNR/DNI after discussion with pt's DVT prophylaxis: Deferred in setting of thrombocytopenia/anemia Diet: HH/minced and moist Dispo: PCU Admission and Anticipated Discharge Date Admission Date: September 29, 2023 Subjective Pt seen in follow up of pancytopenia hx of pAfib. Liver mass - not yet further investigated. hx of RA. Hx of prior CVA AMS several days ago - Stroke alert called - CT head, CTA head and neck negat., MRI brain negat. This AM she is sitting up in bed in NAD, awake and eating. present at the bedside. Urine cultx positive - for VRE, cont. dapto Also discussed w/ Dr. Scales earlier - recommends to poss. get bone marrow bx prior to discharge. Review of Systems Review of Systems: All systems reviewed & are unremarkable except as noted in Subjective Physical Exam Physical Exam: General: thin elderly F , + chronically ill appearing, sitting up in bed in NAD Neuro: awake, alert, answers simple questions, moves extremities HEENT: NC/AT CV: Irregular rate and rhythm Resp: CTAB, no increased effort of breathing Abdomen: Soft Extremities: no edema in lower extremities Results & Data Results & Data Vital Signs (Past 12 Hours) Vital Signs Temp Pulse Pulse Resp BP Pulse Ox Pulse Ox 10/06/23 07:19 36.9 C 88 17 151/80 H 100 10/06/23 02:41 36.7 C 96 H 18 162/70 H 97 10/05/23 22:58 36.8 C 72 18 165/71 H 99 10/05/23 22:32 85 10/05/23 21:13 10/05/23 20:00 92 O2 Del Method O2 Del Method 10/06/23 07:19 Room Air 10/06/23 02:41 Room Air 10/05/23 22:58 Room Air 10/05/23 22:32 10/05/23 21:13 Room Air 10/05/23 20:00 Room Air Laboratory Results 10/06/23 10/05/23 Range/Units 07:22 07:31 WBC 1.66 L (4.8-10.8) K/ul RBC 3.19 L (4.20-5.40) M/uL Hgb 8.9 L (12.0-16.0) g/dl Hct 26.1 L (37.0-47.0) % MCV 81.8 (80.0-100.0) fL MCH 27.9 (25.0-34.0) pg MCHC 34.1 (32.0-36.0) g/dL RDW Std Deviation 52.3 H (36.4-46.3) fL RDW Coeff of Xochitl 18.0 H (11.5-14.5) % Plt Count 140 (130-400) K/uL MPV 8.8 L (9.4-12.4) fL Blood Smear Review Sodium 127 L (136-145) mmol/L Potassium 4.8 (3.5-5.1) mmol/L Chloride 97 L (98-107) mmol/L Carbon Dioxide 23 (21-32) mmol/L Anion Gap 7 (3-11) BUN 17 (6-23) mg/dl Creatinine 0.93 (0.6-1.2) mg/dl Est Cr Clr Drug Dosing 40.2 ml/min Est GFR ( Amer) 69.2 ml/min Est GFR (Non-Af Amer) 59.7 ml/min BUN/Creatinine Ratio 18.3 (10-20) Glucose 128 H (70-99(Fasting)) mg/dl Calcium 9.1 (8.6-10.3) mg/dl Phosphorus 1.9 L (2.5-4.9) mg/dl Magnesium 1.4 L (1.7-2.4) mg/dl Total Creatine Kinase 14 L (26-192) U/L Flow Cytometry Comment Pending Medications Administered Current Inpatient Medications Acetaminophen (Acetaminophen 325 Mg Tab) 650 mg PO Q4 PRN PRN Reason: Fever Or Pain Stop: 10/29/23 21:30 Last Admin: 10/02/23 12:03 Dose: 650 mg Albuterol (Albuterol Hfa 8 Gm Inhaler) 2 puffs INH Q4 PRN PRN Reason: Shortness Of Breath Stop: 10/29/23 21:30 Albuterol (Albuterol 0.083% Nebu Soln 3 Ml Vial) 2.5 mg INH QIDR PRN; Protocol PRN Reason: Shortness Of Breath Or Wheezin Stop: 10/29/23 21:30 Artificial Tears (Artificial Tears) 1 drops OPB QID [facility] Stop: 11/01/23 16:59 Last Admin: 10/06/23 07:23 Dose: 1 drops Clopidogrel Bisulfate (Clopidogrel Bisulfate 75 Mg Tab) 75 mg PO QAM [facility] Stop: 10/30/23 08:59 Last Admin: 10/06/23 09:12 Dose: 75 mg Cyanocobalamin (Cyanocobalamin (B-12) 500 Mcg Tablet) 2,000 mcg PO MoWeFr@0900 [facility] Stop: 10/30/23 08:59 Last Admin: 10/05/23 10:51 Dose: 2,000 mcg Duloxetine HCl (Duloxetine Hcl 60 Mg Cap) 60 mg PO QAM [facility] Stop: 10/30/23 08:59 Last Admin: 10/06/23 07:26 Dose: 60 mg Fluticasone/Vilanterol (Fluticasone/Vilanterol 200/25mcg 14 Puffs/Inhaler) 1 puffs INH DAILY [facility] Stop: 10/30/23 08:59 Last Admin: 10/06/23 07:27 Dose: 1 puffs Folic Acid (Folic Acid 1 Mg Tab) 1 mg PO QAM [facility] Stop: 10/30/23 08:59 Last Admin: 10/06/23 07:27 Dose: 1 mg Guaifenesin (Guaifenesin 600 Mg Tabcr) 600 mg PO Q12 [facility] Stop: 10/29/23 21:44 Last Admin: 10/06/23 07:24 Dose: 600 mg Daptomycin 450 mg/ Syringe 9 mls @ 4.5 mls/min IV Q24H [facility]; Protocol Stop: 10/13/23 10:29 Last Admin: 10/06/23 10:40 Dose: 4.5 mls/min Magnesium Sulfate/Dextrose (Magnesium Sulfate / D5w) 1 gm in 100 mls @ 50 mls/hr IV Q2H [facility] Stop: 10/06/23 14:14 Last Admin: 10/06/23 10:40 Dose: 50 mls/hr Sodium Phosphate 21 mmol/ (Sodium Chloride) 507 mls @ 145 mls/hr IV ONE ONE Stop: 10/06/23 13:44 Sodium Chloride (Nss) 1,000 mls @ 80 mls/hr IV .[id number] [facility] Stop: 11/05/23 10:14 Isosorbide Dinitrate (Isosorbide Dinitrate 10 Mg Tab) 10 mg PO BID@0700,1200 [facility] Stop: 10/30/23 06:59 Last Admin: 10/06/23 07:25 Dose: 10 mg Lactobacillus Acidophilus (Advanced Probiotic 1250 Mg Capsule) 1 cap PO BID [facility] Stop: 10/29/23 21:44 Last Admin: 10/06/23 07:23 Dose: 1 cap Latanoprost (Latanoprost 0.005% Op Soln 2.5 Ml Btl) 1 drops OPB HS [facility] Stop: 10/29/23 21:44 Last Admin: 10/05/23 20:03 Dose: 1 drops Magnesium Chloride (Magnesium Chloride W/Calcium 64mg Delayed Rel Tab) 64 mg PO BID [facility] Stop: 11/05/23 10:14 Metoprolol Succinate (Metoprolol Succ 50mg Ext Rel Tab) 50 mg PO BID [facility] Stop: 10/29/23 21:44 Last Admin: 10/06/23 09:12 Dose: 50 mg Miconazole Nitrate (Miconazole Nitrate Powder 85 Gm) 1 appln TOP BID [facility] Stop: 10/29/23 21:30 Last Admin: 10/06/23 07:51 Dose: 1 appln Montelukast Sodium (Montelukast Sodium 10 Mg Tablet) 10 mg PO QAM [facility] Stop: 10/30/23 08:59 Last Admin: 10/06/23 07:26 Dose: 10 mg Multivitamins (Multivitamin Tab) 1 tab PO QAM [facility] Stop: 10/30/23 08:59 Last Admin: 10/06/23 07:27 Dose: 1 tab Multivitamins/Minerals (Cerovite Adv Formula Tab) 1 tab PO QAM [facility] Stop: 10/30/23 08:59 Last Admin: 10/06/23 07:26 Dose: 1 tab Oxybutynin Chloride (Oxybutynin Chloride Xl 5 Mg Tabcr) [facility] [place] Stop: 10/30/23 08:59 Last Admin: 10/06/23 07:26 Dose: 10 mg Pantoprazole Sodium (Pantoprazole 40 Mg Tab) 40 mg PO BID [facility] Stop: 10/29/23 21:44 Last Admin: 10/06/23 07:50 Dose: 40 mg Potassium Chloride (Potassium Chloride Pwd 20 Meq Pack) 20 meq PO BID [facility] Stop: 11/04/23 08:59 Last Admin: 10/06/23 07:25 Dose: 20 meq Prednisone (Prednisone 5 Mg Tab) 5 mg PO [facility] Stop: 10/30/23 08:59 Last Admin: 10/06/23 07:25 Dose: 5 mg Rosuvastatin Calcium (Rosuvastatin Calcium 20 Mg Tab) 20 mg PO [facility] Stop: 10/29/23 21:44 Last Admin: 10/02/23 20:38 Dose: 20 mg Silver Sulfadiazine (Silver Sulfadiazine 1% Cr 50 Gm Jar) 1 appln TOP UD PRN PRN Reason: DRESSING CHANGES Stop: 10/29/23 21:30 Thiamine HCl (Thiamine Hcl 50 Mg Tablet) 50 mg PO [facility] Stop: 10/30/23 08:59 Last Admin: 10/06/23 07:24 Dose: 50 mg Vitamin D (Cholecalciferol 1,000 Units 25 Mcg Tab) 2,000 units PO [facility] Stop: 10/30/23 08:59 Last Admin: 10/06/23 07:23 Dose: 2,000 units
[2023-10-06 07:57] LABS: BUN Creatinine Ratio 18.3 (10-20); Calcium 9.1 mg/dl (8.6-10.3); Creatinine Clr Calc Pharmacy 40.2 ml/min; Est GFR (African American) 69.2 ml/min; Est GFR (Non-African American) 59.7 ml/min; Magnesium 1.4 mg/dl (1.7-2.4); Phosphorus 1.9 mg/dl (2.5-4.9); Potassium 4.8 mmol/L (3.5-5.1)
[2023-10-06] MEDS: CLOPIDOGREL BISULFATE 75 MG TAB PO SCH (09:12)
[2023-10-06] MEDS: METOPROLOL SUCC 50MG EXT REL TAB PO SCH ×2 (09:12→20:24)
--- NOTE | 2023-10-06 10:05 | Nephrology Progress Note ---
Date of Service October 06, 2023 Assessment & Plan Admission and Anticipated Discharge Date Admission Date: September 29, 2023 Subjective Assessment & Plan (1) Electrolyte and fluid disorder: Plan: stable mild hyponatremia (presenting sodium 129 up to 133 yesterday but now dropped again to 130) mild hypocalcemia, low phosphate with normal magnesium levels. urine osm is consistent with combination of Low Solute diet and SIADH. Lower FFR 1200 ml per day. her protein intake /Solid food intake is very low--Now on Supplement--to continue. Low Phos and low na--will give na phosphate today 21 mmol. mag still low--2gm iv and Slow mag 64 bid po daily bmp, mag, phos Will be difficult to change serum Na much without major increase in Solid food i ntake. NSS--give 1000 ml at 80/hr repeat urine osm Subjective Seems alert Answered basic Questions. Denies SOB or any pain. Not eating much. Na went down. Physical Exam Constitutional: well developed, no acute distress Eyes: EOM intact bilaterally ENMT: Ears: no external ear abnormality Nose: no external nose abnormality Mouth: + dry oral mucous membranes Neck: no nuchal rigidity Respiratory: normal respiratory effort Auscultation: + diminished lung sounds Cardiovascular: Rate/Rhythm: regular rate and regular rhythm Extremities: no edema Gastrointestinal (Abdomen): Inspection/Auscultation: normal bowel sounds Percussion/Palpation: abdomen soft; abdomen nontender Musculoskeletal: Extremities: strength 5/5 throughout Skin: no rashes, warm and dry Results & Data Vital Signs (Past 12 Hours) Vital Signs Temp Pulse Pulse Resp BP Pulse Ox O2 Del Method 10/06/23 07:19 36.9 C 88 17 151/80 H 100 Room Air 10/06/23 02:41 36.7 C 96 H 18 162/70 H 97 Room Air 10/05/23 22:58 36.8 C 72 18 165/71 H 99 Room Air 10/05/23 22:32 85
[2023-10-06] MEDS ORDERED: SODIUM PHOSPHATE 3 MMOL/1 ML INFUSION IV STA (10:06)
[2023-10-06] MEDS ORDERED: SODIUM PHOSPHATE 21 MMOL in SODIUM CHLORIDE 0.9% 500 ML IV ONE (10:15)
[2023-10-06] MEDS: SODIUM CHLORIDE 0.9% 1,000 ML IV SCH ×2 (10:30→22:48)
[2023-10-06] MEDS: DAPTOmycin 450 MG in SYRINGE 0 ML IV SCH (10:40)
[2023-10-06] MEDS: MAGNESIUM SULFATE / D5W 1 GM/100 ML BAG IV SCH ×2 (10:40→12:47)
[2023-10-06] MEDS: MAGNESIUM CHLORIDE W/CALCIUM 64MG DELAYED REL TAB PO SCH ×3 (11:14→20:29)
[2023-10-06 19:56] LABS: Parvovirus B19 Qual Source Plasma; Parvovirus B19 Qualitative Not Detected (Not Detected)
[2023-10-06] MEDS: LATANOPROST 0.005% OP SOLN 2.5 ML BTL OPB SCH (20:23)
[2023-10-07] MEDS: ISOSORBIDE DINITRATE 10 MG TAB PO SCH ×2 (06:19→12:27)
[2023-10-07] MEDS: OXYBUTYNIN CHLORIDE XL 5 MG TABCR PO SCH (08:19)
[2023-10-07] MEDS: FOLIC ACID 1 MG TAB PO SCH (08:19)
[2023-10-07] MEDS: ARTIFICIAL TEARS OPB SCH ×4 (08:19→21:02)
[2023-10-07] MEDS: predniSONE 5 MG TAB PO SCH (08:19)
[2023-10-07 08:20] LABS: Hematocrit (blood only) 26.1 % (37.0-47.0); Hemoglobin 8.7 g/dl (12.0-16.0); Mean Corpuscular Hemoglobin 27.4 pg (25.0-34.0); Mean Corpuscular Hgb Conc 33.3 g/dL (32.0-36.0); Mean Corpuscular Volume 82.3 fL (80.0-100.0); Mean Platelet Volume 8.6 fL (9.4-12.4); Platelet Count 148 K/uL (130-400); RDW Coefficient of Variation 18.5 % (11.5-14.5); RDW Standard Deviation 52.8 fL (36.4-46.3); Red Blood Count 3.17 M/uL (4.20-5.40); White Blood Count 2.15 K/ul (4.8-10.8)
[2023-10-07] MEDS: guaiFENesin 600 MG TABCR PO SCH ×2 (08:20→21:03)
[2023-10-07] MEDS: THIAMINE HCL 50 MG TABLET PO SCH (08:20)
[2023-10-07] MEDS: METOPROLOL SUCC 50MG EXT REL TAB PO SCH ×2 (08:20→21:03)
[2023-10-07] MEDS: CLOPIDOGREL BISULFATE 75 MG TAB PO SCH (08:20)
[2023-10-07] MEDS: MULTIVITAMIN TAB PO SCH (08:20)
[2023-10-07] MEDS: CYANOCOBALAMIN (B-12) 500 MCG TABLET PO SCH (08:21)
[2023-10-07] MEDS: CHOLECALCIFEROL 25 MCG (1000 UNITS) TAB PO SCH (08:21)
[2023-10-07] MEDS: CEROVITE ADV FORMULA TAB PO SCH (08:21)
[2023-10-07] MEDS: DULoxetine HCL 60 MG CAP PO SCH (08:21)
[2023-10-07] MEDS: POTASSIUM CHLORIDE PWD 20 MEQ PACK PO SCH (08:21)
[2023-10-07] MEDS: MONTELUKAST SODIUM 10 MG TABLET PO SCH (08:22)
[2023-10-07] MEDS: ADVANCED PROBIOTIC 1250 MG CAPSULE PO SCH ×2 (08:22→21:03)
[2023-10-07] MEDS: MICONAZOLE NITRATE POWDER 85 GM TOP SCH ×2 (08:22→21:04)
[2023-10-07] MEDS: FLUTICASONE/VILANTEROL 200/25MCG 14 PUFFS/INHALER INH SCH (08:23)
[2023-10-07] MEDS: MAGNESIUM CHLORIDE W/CALCIUM 64MG DELAYED REL TAB PO SCH ×2 (08:23→21:06)
[2023-10-07] MEDS: PANTOprazole 40 MG TAB PO SCH ×2 (08:23→21:06)
[2023-10-07 08:41] LABS: ANC (manual) 0.15 K/uL (1.4-6.5); Large Granular Lymph # (manua 0.75 K/uL; Large Granular Lymph % (manual) 35 %; Lymphocytes # (manual) 0.95 K/uL (1.2-3.4); Lymphocytes % (manual) 44 %; Monocytes # (manual) 0.28 K/uL (0.11-0.59); Monocytes % (manual) 13 %; Myelocytes # (manual) 0.02 K/uL (0-0); Myelocytes % (manual) 1 %; Neutrophils # (manual) 0.15 K/uL (1.40-6.50); Neutrophils % (manual) 7 %; Polychromasia 1+
[2023-10-07 08:56] LABS: Calcium 8.8 mg/dl (8.6-10.3); Magnesium 1.7 mg/dl (1.7-2.4); Potassium 4.9 mmol/L (3.5-5.1)
[2023-10-07 09:02] LABS: BUN Creatinine Ratio 20.5 (10-20); Est GFR (African American) 79.4 ml/min; Est GFR (Non-African American) 68.5 ml/min; Phosphorus 2.7 mg/dl (2.5-4.9)
--- NOTE | 2023-10-07 09:32 | Hospitalist Progress Note ---
Date of Service October 07, 2023 Assessment & Plan (1) Pancytopenia: (2) Complicated UTI (urinary tract infection): Plan 75-year-old female with type 2 diabetes, CKD stage III, hyperlipidemia, chronic drug-induced interstitial lung disorders, asthma mild persistent, COPD, chronic right-sided heart failure, hypertension, history of CAD, history of CVA, mild aortic stenosis, paroxysmal atrial fibrillation, moderate protein calorie malnutrition, slow transit constipation, vitamin B-12 and thiamine deficiency, history of esophageal dysphagia, GERD, gout, osteoarthritis, primary open-angle glaucoma, polyneuropathy, rheumatoid arthritis involving multiple sites with positive rheumatoid factor, depression, history of C. difficile, history of COVID, history of fever of unknown origin admitted with abnormal labwork at rehab. Pt has had multiple admissions and re-admissions. Continuous decline. Palliative Care consult placed for further recs after discussion with her . AMS metabolic encephalopathy UTI Discussed with on admission, pt not at her baseline. Notes fever of 102 day of admission at [facility] rehab UA suggestive of infection, urine Cx with several organisms, repeat Ucultx positive - VRE - cont. dapto Chest XRAY with no acute changes CT chest with no acute findings in the chest Biofire negative Procal elevated at 2.31, lactate wnl Blood cx x2 with NGTD On Cefepime and empiric doxycycline initially Doxycycline, cefepime. switched cefepime to ertapenem, added daptomycin (10/03). ertapenem now stopped as ucultx posit.for vre repeat blood cultx - negat for 48 hrs. Fungal cultx - NGTD repeat Ucultx - VRE - cont. dapto AMS - change in mental status, acute on 10/03/2023 AM Stroke ruled out Stroke alert was called - CT head, CTA head and neck negat., MRI brain negative Neurology consulted - consider EEG, LP if mental status not improving 10/04-10/06 - pt is awake, alert and answers simple questions, moves extremities, mental status overall improved Pancytopenia Pt with WBC 1.07K, Hgb 7.7, platelets 118K on admission Tick borne testing r/o- pt states she took a tick out off her cat about a month ago Biofire as above to rule out a viral suppression cause- negative Peripheral smear ordered, SPEP recommended Hematology consult- appreciate recs. - received iv iron x3 and neupogen x2 Empiric doxycycline for possible tick borne cause discontinued. Transfuse hgb as needed if <7, currently stable >8 10/04 discussed w/ hematology - would recommend bone marrow biopsy prior to discharge 10/07- hematology contacted once more for further recs Hypomagnesemia Replete and monitor Hyponatremia Sodium 129 on admission Chronic Hx, Known to nephrology service Nephrology consult placed Was trending back up, however now down to 127. Nephrology following. Elevated trop Atrial fibrillation Trops elevated at 25.3, downtrended to 23.2 EKG showed atrial fibrillation On metoprolol succinate 50mg BID, not on anticoagulation Doubt ACS 10/03 AMS, abnormal ecg, troponin normal, echo also obtained as recent hx of takotsubo Echo - EF 60-655, Mild concentric LVH. No significant valvular pathology. Continue other home meds as ordered for now CODE STATUS: DNR/DNI after discussion with pt's DVT prophylaxis: Deferred in setting of thrombocytopenia/anemia Diet: HH/minced and moist Dispo: Palliative Care consult placed for goals discussion Admission and Anticipated Discharge Date Admission Date: September 29, 2023 Subjective pt was seen with at bedside. Speaking but speech sometimes unintelligible. Melita note that she was having some chest pain today, states it is on the " inside" Review of Systems Review of Systems: All systems reviewed & are unremarkable except as noted in Subjective Physical Exam Physical Exam: General: Alert Psych: Appropriate mood and affect Neuro: weak, difficulty with movements HEENT: NC/AT CV: RRR Resp: some increased effort of breathing but breath sounds with no wheezing or rhonchi Abdomen: Soft Extremities: No edema in lower extremities bilaterally. Results & Data Results & Data Vital Signs (Past 12 Hours) Vital Signs Temp Pulse Pulse Resp BP BP Pulse Ox 10/07/23 07:26 36.7 C 67 17 132/76 99 10/07/23 06:16 68 153/69 H 10/07/23 02:49 36.6 C 67 18 155/76 H 99 10/06/23 23:00 67 10/06/23 22:48 37 C 65 18 166/77 H 100 O2 Del Method 10/07/23 07:26 Room Air 10/07/23 06:16 10/07/23 02:49 Room Air 10/06/23 23:00 10/06/23 22:48 Room Air
--- NOTE | 2023-10-07 10:18 | Nephrology Progress Note ---
Date of Service October 07, 2023 Assessment & Plan Admission and Anticipated Discharge Date Admission Date: September 29, 2023 Subjective Assessment & Plan (1) Electrolyte and fluid disorder: Plan: stable mild hyponatremia (presenting sodium 129 up to 133 yesterday but now dropped again to 130) mild hypocalcemia, low phosphate with normal magnesium levels. urine osm is consistent with combination of Low Solute diet and SIADH. FFR 1200 ml per day. her protein intake /Solid food intake is very low--Now on Supplement--to continue. Phos and Mag normal today. K 4.9 so lower kcl supplement. She is not able to take in lot of Po meds. Eating almost nothing. daily bmp, mag, phos Will be difficult to change serum Na much without major increase in Solid food intake. Continue NS at 80 ml/hr --1000 ml. Consider palliative med consult Subjective Seems alert Answered basic Questions. Denies SOB or any pain. Not eating much. Na same Physical Exam Constitutional: well developed, no acute distress Eyes: EOM intact bilaterally ENMT: Ears: no external ear abnormality Nose: no external nose abnormality Mouth: + dry oral mucous membranes Neck: no nuchal rigidity Respiratory: normal respiratory effort Auscultation: + diminished lung sounds Cardiovascular: Rate/Rhythm: regular rate and regular rhythm Extremities: no edema Gastrointestinal (Abdomen): Inspection/Auscultation: normal bowel sounds Percussion/Palpation: abdomen soft; abdomen nontender Musculoskeletal: Extremities: strength 5/5 throughout Skin: no rashes, warm and dry Results & Data Vital Signs (Past 12 Hours) Vital Signs Temp Pulse Pulse Resp BP BP Pulse Ox 10/07/23 07:26 36.7 C 67 17 132/76 99 10/07/23 06:16 68 153/69 H 10/07/23 02:49 36.6 C 67 18 155/76 H 99 10/06/23 23:00 67 10/06/23 22:48 37 C 65 18 166/77 H 100 O2 Del Method 10/07/23 07:26 Room Air 10/07/23 06:16 10/07/23 02:49 Room Air 10/06/23 23:00 10/06/23 22:48 Room Air
[2023-10-07] MEDS: SODIUM CHLORIDE 0.9% 1,000 ML IV SCH ×2 (10:54→23:03)
[2023-10-07] MEDS: DAPTOmycin 450 MG in SYRINGE 0 ML IV SCH (10:54)
--- NOTE | 2023-10-07 17:47 | Electrocardiogram Report ---
Test Reason : Blood Pressure : / mmHG Vent. Rate : 071 BPM Atrial Rate : 071 BPM P-R Int : 206 ms QRS Dur : 120 ms QT Int : 404 ms P-R-T Axes : -19 014 -20 degrees QTc Int : 439 ms Sinus rhythm with Premature atrial complexes Low voltage QRS Right bundle branch block Possible Inferior infarct , age undetermined Abnormal ECG When compared with ECG of 03-OCT-2023 09:36, Premature atrial complexes are now Present Vent. rate has decreased BY 71 BPM Right bundle branch block has replaced Incomplete right bundle branch block Confirmed by Tesfaye Singh ([id number]) on 10/07/2023 5:46:54 PM Referred By: REFERRED SELF Confirmed By:Av Singh
[2023-10-07] MEDS: LATANOPROST 0.005% OP SOLN 2.5 ML BTL OPB SCH (21:03)
[2023-10-08] MEDS: ISOSORBIDE DINITRATE 10 MG TAB PO SCH ×2 (06:17→11:11)
[2023-10-08 08:08] LABS: Hematocrit (blood only) 24.8 % (37.0-47.0); Hemoglobin 8.1 g/dl (12.0-16.0); Mean Corpuscular Hemoglobin 27.8 pg (25.0-34.0); Mean Corpuscular Hgb Conc 32.7 g/dL (32.0-36.0); Mean Corpuscular Volume 85.2 fL (80.0-100.0); Mean Platelet Volume 8.8 fL (9.4-12.4); Platelet Count 143 K/uL (130-400); RDW Coefficient of Variation 18.9 % (11.5-14.5); RDW Standard Deviation 55.2 fL (36.4-46.3); Red Blood Count 2.91 M/uL (4.20-5.40); White Blood Count 2.13 K/ul (4.8-10.8)
[2023-10-08] MEDS: ARTIFICIAL TEARS OPB SCH ×4 (08:26→21:12)
[2023-10-08] MEDS: FLUTICASONE/VILANTEROL 200/25MCG 14 PUFFS/INHALER INH SCH (08:27)
[2023-10-08] MEDS: CEROVITE ADV FORMULA TAB PO SCH (08:27)
[2023-10-08] MEDS: POTASSIUM CHLORIDE PWD 20 MEQ PACK PO SCH (08:27)
[2023-10-08] MEDS: MULTIVITAMIN TAB PO SCH (08:28)
[2023-10-08] MEDS: CLOPIDOGREL BISULFATE 75 MG TAB PO SCH (08:28)
[2023-10-08] MEDS: DULoxetine HCL 60 MG CAP PO SCH (08:29)
[2023-10-08] MEDS: OXYBUTYNIN CHLORIDE XL 5 MG TABCR PO SCH (08:32)
[2023-10-08] MEDS: METOPROLOL SUCC 50MG EXT REL TAB PO SCH ×2 (08:32→21:12)
[2023-10-08] MEDS: MONTELUKAST SODIUM 10 MG TABLET PO SCH (08:33)
[2023-10-08] MEDS: guaiFENesin 600 MG TABCR PO SCH ×2 (08:33→21:13)
[2023-10-08] MEDS: FOLIC ACID 1 MG TAB PO SCH (08:33)
[2023-10-08] MEDS: predniSONE 5 MG TAB PO SCH (08:34)
[2023-10-08] MEDS: THIAMINE HCL 50 MG TABLET PO SCH (08:34)
[2023-10-08] MEDS: MICONAZOLE NITRATE POWDER 85 GM TOP SCH ×2 (08:35→21:14)
[2023-10-08] MEDS: PANTOprazole 40 MG TAB PO SCH ×2 (08:35→21:12)
[2023-10-08] MEDS: MAGNESIUM CHLORIDE W/CALCIUM 64MG DELAYED REL TAB PO SCH ×2 (08:36→21:14)
[2023-10-08] MEDS: ADVANCED PROBIOTIC 1250 MG CAPSULE PO SCH ×2 (08:36→21:13)
[2023-10-08 08:37] LABS: Albumin Globulin Ratio 1.1 (0.9-2); Albumin Level 2.7 gm/dl (3.4-5.0); BUN Creatinine Ratio 20.2 (10-20); Bilirubin,Total 0.4 mg/dl (0.2-1.0); Calcium 8.9 mg/dl (8.6-10.3); Creatinine Clr Calc Pharmacy 44.5 ml/min; Est GFR (African American) 78.2 ml/min; Est GFR (Non-African American) 67.5 ml/min; Globulin 2.4 gm/dl (2.5-4.0); Magnesium 1.5 mg/dl (1.7-2.4); Phosphorus 2.9 mg/dl (2.5-4.9); Potassium 4.8 mmol/L (3.5-5.1); Total Protein 5.1 gm/dl (6.0-8.3)
[2023-10-08] MEDS: CHOLECALCIFEROL 25 MCG (1000 UNITS) TAB PO SCH (08:37)
[2023-10-08 09:19] LABS: Large Granular Lymph % (manual) 28 %; Lymphocytes # (manual) 1.11 K/uL (1.2-3.4); Lymphocytes % (manual) 52 %; Monocytes # (manual) 0.11 K/uL (0.11-0.59); Monocytes % (manual) 5 %; Neutrophils % (manual) 14 %; Polychromasia 1+; Promyelocytes # (manual) 0.02 K/uL (0-0); Promyelocytes % (manual) 1 %; Toxic Granulation 1+
[2023-10-08] MEDS: DAPTOmycin 450 MG in SYRINGE 0 ML IV SCH (10:04)
[2023-10-08] MEDS: SODIUM CHLORIDE 0.9% 1,000 ML IV SCH ×2 (11:10→23:45)
[2023-10-08] MEDS: MAGNESIUM SULFATE / D5W 1 GM/100 ML BAG IV SCH (11:10)
--- NOTE | 2023-10-08 11:15 | Nephrology Progress Note ---
Date of Service October 08, 2023 Assessment & Plan Admission and Anticipated Discharge Date Admission Date: September 29, 2023 Subjective Assessment & Plan (1) Electrolyte and fluid disorder: Plan: stable mild hyponatremia (presenting sodium 129 up to 133 yesterday but now dropped again to 130) mild hypocalcemia, low phosphate with normal magnesium levels. urine osm is consistent with combination of Low Solute diet and SIADH. FFR 1200 ml per day. her protein intake /Solid food intake is very low--Now on Supplement--to continue. Eating almost nothing. daily bmp, mag, phos Will be difficult to change serum Na much without major increase in Solid food intake. Continue NS at 80 ml/hr --but will also add lasix 20 iv bid to lower urine osm and cause free water diuresis Consider palliative med consult Subjective Seems alert Answered basic Questions. Denies SOB or any pain. Not eating much. Na same Physical Exam Constitutional: well developed, no acute distress Eyes: EOM intact bilaterally ENMT: Ears: no external ear abnormality Nose: no external nose abnormality Mouth: + dry oral mucous membranes Neck: no nuchal rigidity Respiratory: normal respiratory effort Auscultation: + diminished lung sounds Cardiovascular: Rate/Rhythm: regular rate and regular rhythm Extremities: no edema Gastrointestinal (Abdomen): Inspection/Auscultation: normal bowel sounds Percussion/Palpation: abdomen soft; abdomen nontender Musculoskeletal: Extremities: strength 5/5 throughout Skin: no rashes, warm and dry Results & Data Vital Signs (Past 12 Hours) Vital Signs Temp Pulse Pulse Resp BP BP Pulse Ox 10/08/23 08:00 81 10/08/23 07:45 10/08/23 07:33 37.5 C 77 18 149/70 H 96 10/08/23 03:06 36.7 C 70 18 136/65 98 10/07/23 23:22 36.8 C 63 18 168/78 H 99 O2 Del Method 10/08/23 08:00 10/08/23 07:45 Room Air 10/08/23 07:33 Room Air 10/08/23 03:06 Room Air 10/07/23 23:22 Room Air
[2023-10-08] MEDS: FUROSEMIDE INJ 20 MG/2 ML VIAL IV SCH ×2 (11:35→17:11)
--- NOTE | 2023-10-08 11:49 | Palliative Care Consultation ---
Date of Consultation October 08, 2023 Assessment & Plan (1) Confusion: improved with treatment of UTI (2) Generalized weakness: progressive and recurrent illness and admissions (3) Anorexia: (4) Discussion about advance care planning held with family member: Pt is intermittently not decisional through this admission but today is quite awake and alert A 45min face to face ACP discussion with pt and who she confirms is her SDM With their consent and voluntary participation, we discussed events to date and the set backs she has experienced. We reviewed Advance illness planning conversations are conducted to review goals and expectations, support shared decision-making, and engage in disease specific advance care planning. This type of advance care planning is sometimes referred to as 'preparedness planning. It is used to review the risks and benefits of offered therapy, elicit and deepen understanding of the underlying illness and therapeutic options, ensure adequate psychosocial support, address existential concerns and coping, and engage in end-of-life planning. Preparedness planning is not meant to replace informed consent discussions. Palliative medicine plays a role in the process of deepening a patients understanding of this specific medical intervention and ensuring this treatment aligns with their goals of care remains a central tenet of the planning conversation. They tell me they'd like rehab trial at [facility]. if no beds there, he has a list of where else he would consider and I advised him I would let Renny LUNDBERG know to connect with him for that list. They both feel she had a good day today and hope it will be the trend; they agreed if things do not improve at rehab trial then they'd want focus to be comfort and QOL, so she'd move to penitentiary care and they would be open to hospice added to her care. he cannot meet her needs at home even with hospice, he has no other help and nearest family is an hour away. We discussed the goals of hospice as a patient service and the goals of care; we discussed EOL trajectories and transitions more the emotional impact of realizing mortality as a concrete reality from prior abstract considerations. Pt was reassured that no matter where they are along this trajectory, they are not alone - their medical team will remain by their side through their journey. Discussed the pros/cons of accepting help when especially weakened and distressed by pain-which would also help provide relief/decrease caregiver burden/strain. I provided education about the hospice benefit: an interdisciplinary program offered by nurses, nurses aides, social workers, chaplains and a medical staff director for patients with a terminal condition and a life expectancy of less than 6 months. This is covered by Medicare at 100%/no out of pocket expense to patient and all meds/supplies needed by patient for the reason they are on hospice are paid for/covered by hospice. The goal is assure quality of life of the patient in their home setting (home, detention, inpatient hospice setting) by providing symptoms management, psychosocial and spiritual support. However, they cannot offer 24 hours care and if the family is unable to provide that care, they will have to consider personal care with out of pocket cost vs. detention placement. We discussed the goals of hospice as a patient service and the goals of care; we discussed EOL trajectories and transitions more the emotional impact of realizing mortality as a concrete reality from prior abstract considerations. Pt was reassured that no matter where they are along this trajectory, they are not alone - their medical team will remain by their side through their journey. Discussed the pros/cons of accepting help when especially weakened and distressed by pain-which would also help provide relief/decrease caregiver burden/strain. (5) Palliative care by specialist: Met with pt , provided overview of Palliative Medicine, a subspecialty that provides specialized medical care for people living with a serious illness by offering a focus on quality of life. Palliative Medicine is often conflated with hospice: I advised patient/family that Palliative and hospice can be pa rtners but we are not the same. It is important to understand the difference so that we may be informed, and not afraid. Palliative Medicine works to improve QOL through reduction of symptom burden/more control over their illness, for both the patient and family. Palliative medicine clinicians are board certified, specially-trained and another member of the patient's medical care team. We often provide an extra layer of support because our care is based on the needs of the patient, not the prognosis; as such, it's appropriate at any age/advancing stage of a serious illness and can be provided along with curative treatment. Palliative Medicine clinicians are also trained in advanced communication methodologies, to facilitate complex discussions about advanced illness planning, which are needed to help assure that the treatment choices match the patient's goals, aka delivering Goal Concordant care. Finally, we discussed that hospice is a visiting nurse service that focuses on care del ivered at the very end of life for patients with terminal illness, with life expectancy less than 6 month. (6) Acute metabolic encephalopathy: (7) Sepsis: Sepsis acute organ dysfunction status: with acute organ dysfunction Sepsis type: sepsis due to unspecified organism Severe sepsis acute organ dysfunction type: encephalopathy Severe sepsis shock status: unspecified Qualified Code(s): A41.9 - Sepsis, unspecified organism; R65.20 - Severe sepsis without septic shock; G93.41 - Metabolic encephalopathy (8) Recurrent Clostridioides difficile infection: (9) Acute UTI: Plan ACP discussion above No acute/urgent inpatient pall med needs beyond ACP as noted above Pt and appreciative of discussion and plan with back up for moving to comfort with hospice if rehab fails her he would like [facility], frustrated that she could have gone back if he had been able to pay for bed hold but notes that [facility] wanted too much money I will sign off. please call or page me if any urgent re engagement is needed this admission. I provided pt and with my contact information Thank you for allowing us to participate in the ongoing care of this patient. Please don't hesitate to call or page with any additional concerns. Dr. Shanelle Be DNP Director, Palliative Care History of Present Illness Reason for Consultation: GOC, progressive decline Attending Physician: Malika Holm MD History of Present Illness 75-year-old female admitted 09/29/23 for fever of unknown origin. History was initially obtained from patient's . He reported that despite intense physical therapy at [facility], she was not making any improvements. When he was visiting her on the , he noted that she felt extremely warm and requested that her temperature be taken and found it to be 102. An additional evaluation by the onsite provider ultimately led to an ED evaluation. At baseline she is confused but in recent weeks has been calling out for her mother who he notes has been for 20+ years. Her past medical history includes: ?dementia/cognitive deficit; T2DM, CKD III, hyperlipidemia, chronic drug-induced interstitial lung disorders, asthma mild persistent, COPD, chronic right-sided heart failure, hypertension, history of CAD, history of CVA, mild aortic stenosis, paroxysmal atrial fibrillation, moderate protein calorie malnutrition, slow transit constipation, vitamin B-12 and thiamine deficiency, history of esophageal dysphagia, GERD, gout, osteoarthritis, primary open-angle glaucoma, polyneuropathy, rheumatoid arthritis involving multiple sites with positive rheumatoid factor, depression, history of C. difficile, history of COVID Since her admission, her oral intake continues to decline. Protein and solid food intake is very low. Remains on a supplement but eating almost nothing. It has been difficult to change her serum sodium without significant increase in her oral intake. She remains on normal saline at 80 MLS per hour and has had additional Lasix 20 mg IV twice daily ordered to also help lower her urine osmolality and improve diuresis. A palliative medicine consult was requested by nephrology. Her metabolic encephalopathy and altered mental status persist. Her UTI is under treatment and her UA was suggestive of infection with culture showing VRE. CT of the chest was negative with no acute findings. Her BioFire respiratory panel was negative. Procalcitonin was noted to be elevated at 2.31 with a normal lactate. Blood cultures to date so far without growth. She was initially started on cefepime and empiric doxycycline. This was then switched to ertapenem with daptomycin added on the . Repeat blood cultures again negative. Fungal cultures negative to date. Repeat urine culture this admi ssion continues to demonstrate VRE growth. She remains on continue daptomycin. On acute mental status was further noted on 10/03/2023 and a stroke was ruled out after CT of the head, CTA of head and neck, MRI of brain were all negative. Neurology consultation was obtained who recommended an EEG and/or LP if mental status does not improve. On 10/04/2023 through 10/06/2023 patient was noted to be awake alert and answering some simple questions. Allergies Allergy/AdvReac Type Severity Reaction Status Date / Time Influenza Virus Vaccines Allergy Severe FLOWN TO Verified 09/05/23 20:43 [facility]. ciprofloxacin Allergy Intermediate RASH/BLEEDI Verified 09/05/23 20:43 NG methotrexate Allergy Intermediate RASH/PNEUMO Verified 09/05/23 20:43 NITIS Penicillins Allergy Intermediate hives Verified 09/05/23 20:43 ranitidine Allergy Intermediate rash Verified 09/05/23 20:43 Home Medications Medication Instructions Recorded Confirmed Type folic acid 1 mg tablet 1 mg PO QAM 07/20/18 09/29/23 History prednisone 5 mg tablet 5 mg PO QAM 07/20/18 09/29/23 History albuterol sulfate 90 mcg/actuation 2 puff inhalation Q4 PRN Shortness 03/07/19 09/29/23 History aerosol inhaler (ProAir HFA) Of Breath cyanocobalamin (vitamin B-12) 2,000 mcg PO 3XWK 03/07/19 09/29/23 History 1,000 mcg tablet (Vitamin B-12) vit A 300 mcg-C 200 mg-E 27 1 tab PO QAM 03/07/19 09/29/23 History mg-lutein 2 mg and minerals tablet (Ocuvite with Lutein) kcidpcab-jnyy-bkxr 8 mg-folic 400 1 tab PO QAM 11/12/19 09/29/23 History mcg-K 50 mcg-lutein 300 mcg tablet (Centrum Silver Women) montelukast 10 mg tablet 10 mg PO QAM 11/15/20 09/29/23 History latanoprost 0.005 % eye drops 1 drp OPB HS 01/03/21 09/29/23 History solifenacin 10 mg tablet (Vesicare) 10 mg PO QAM 08/22/21 09/29/23 History acetaminophen 325 mg tablet 650 mg PO Q4 PRN Fever Or Pain 03/21/22 09/29/23 History fluticasone furoate 200 1 inh inhalation DAILY 03/21/22 09/29/23 History mcg-vilanterol 25 mcg/dose inhalation powder (Breo Ellipta) thiamine HCl (vitamin B1) 100 mg 50 mg PO QAM 03/21/22 09/29/23 History tablet clopidogrel 75 mg tablet 75 mg PO QAM #30 tabs 04/01/22 09/29/23 Rx Lactobacillus rhamnosus GG 5 5 cell PO BID 08/06/22 09/29/23 History billion cell oral powder packet (Culturelle Kids Probiotics) albuterol sulfate 2.5 mg/3 mL 2.5 mg inhalation QID PRN 08/06/22 09/29/23 History (0.083 %) solution for nebulization Shortness Of Breath Or Wheezing cholecalciferol (vitamin D3) 50 50 mcg PO QAM 08/06/22 09/29/23 History mcg (2,000 unit) capsule (Vitamin D3) guaifenesin 600 mg tablet, 600 mg PO Q12 #10 tabs 09/22/23 09/29/23 Rx extended release 12 hr (Mucinex) isosorbide dinitrate 10 mg tablet 10 mg PO BID #60 tabs 09/22/23 09/29/23 Rx duloxetine 60 mg capsule,delayed 60 mg PO QAM 09/29/23 09/29/23 History release hydroxychloroquine 200 mg tablet 200 mg PO .ON HOLD 09/29/23 09/29/23 History metoprolol succinate 50 mg 50 mg PO AMHS 09/29/23 09/29/23 History tablet,extended release 24 hr miconazole nitrate 2 % topical 1 applic topical BID 09/29/23 09/29/23 History powder (Remedy Antifungal) pantoprazole 40 mg tablet,delayed 40 mg PO AMHS 09/29/23 09/29/23 History release rosuvastatin 20 mg tablet 20 mg PO HS 09/29/23 09/29/23 History silver sulfadiazine 1 % topical 1 applic topical [id number] 09/29/23 09/29/23 History cream (Silvadene) Patient History Medical History Wrist fracture, left History of stroke Thrush, oral Hyponatremia Nontraumatic rectus hematoma NSTEMI (non-ST elevated myocardial infarction) UTI (urinary tract infection) Immunosuppressed status DVT prophylaxis CKD (chronic kidney disease), stage III Acute hyponatremia Abnormal ECG Elevated troponin Syncope NSTEMI (non-ST elevated myocardial infarction) Visual hallucinations Hyponatremia RSV infection Recurrent Clostridium difficile diarrhea Chronic steroid use prednisone daily Gout H/O interstitial lung disease "drug induced- methotrexate " Osteoarthritis Glaucoma Peripheral neuropathy Dyslipidemia Rheumatoid arthritis "on chronic steroids" COPD (chronic obstructive pulmonary disease) inhalers prn Depression CKD (chronic kidney disease), stage III Gastroparesis DM type 2 (diabetes mellitus, type 2) GERD (gastroesophageal reflux disease) Migraines DJD of right shoulder NSTEMI (non-ST elevated myocardial infarction) (08/06/13) Asthma inhalers prn HTN (hypertension) Heart disease Surgical History History of tooth extraction all top teeth History of esophagogastroduodenoscopy (EGD) H/O cardiac catheterization "cath 07/2013- single vessel CAD involving apical segment LAD, medical management indicated" S/P total knee arthroplasty "left knee" History of hysterectomy H/O colonoscopy S/P rotator cuff repair "right shoulder" S/P removal of ovarian cyst Family History Father Family history of diabetes mellitus Mother Heart disease Hypertension Other No family history of adverse response to anesthesia Social History Smoking Status: Never smoker Second Hand Exposure: No; Do You Dip or Chew Tobacco: No; Tobacco Cessation Education Requested by Patient: No Hx Alcohol Use: No Hx Substance Use: No Preferred Language: Djiboutian Communication Ability: Effective Scale Clerk Required: No Beliefs That Will Affect Care: None marital status: Current Living Situation: Spouse and Parent current occupational status: retired current occupation: Former [employer] Other Information That Helps Us Care for You: No Feels Safe at Home: Yes Assistive Devices: Cane and Walker Review of Systems Review of Systems: All systems reviewed & are unremarkable except as noted in Subjective Physical Exam Constitutional: + ill appearing, + frail appearing and c ooperative Eyes: PERRL, conjunctivae normal, anicteric sclerae ENMT: Mouth: + dry oral mucous membranes and + poor dentition Neck: normal visual inspection and trachea midline Thyroid: normal thyroid Respiratory: normal respiratory effort, able to speak in complete sentences and symmetric chest movement Auscultation: lungs clear to auscultation bilaterally and + diminished lung sounds Cardiovascular: RRR, no murmur, no edema Gastrointestinal (Abdomen): Inspection/Auscultation: abdomen normal to inspection and normal bowel sounds Musculoskeletal: generalized weakness Skin: dry, scattered ecchymoses Neurologic: normal touch/pain/proprioception, moves all extremities and awake Psychiatric: A+Ox3, euthymic affect Eye Contact: good eye contact Speech: normal rate/rhythm/volume of speech Affect: euthymic affect Thought Process: goal directed thought process and linear/logical thought process Thought Content: + loneliness Results & Data Vital Signs (Past 12 Hours) Vital Signs Temp Pulse Pulse Resp BP BP Pulse Ox 10/08/23 11:00 37 C 67 18 171/67 H 100 10/08/23 08:00 81 10/08/23 07:45 10/08/23 07:33 37.5 C 77 18 149/70 H 96 10/08/23 03:06 36.7 C 70 18 136/65 98 O2 Del Method 10/08/23 11:00 Room Air 10/08/23 08:00 10/08/23 07:45 Room Air 10/08/23 07:33 Room Air 10/08/23 03:06 Room Air Laboratory Results data reviewed/see HPI Diagnostic Findings data reviewed/see HPI PG Care Time/CCT Total # of Minutes Spent Total Time Spent: 115 Total Time Spent with Patient: Total time spent is greater than 50% in coordination of care (as documented) at patient's floor/unit and/or counseling patient: I spent 115 minutes overall addressing this case: 20 min in medical data review/discussion with referring provider(s) and/or preparation for the visit 25 min in direct interaction with the patient/exam 45 min in Advance Care Planning/Goals of Care discussions as detailed above in note (must be >16min) 10 min in subsequent review and synthesis of assessment and plan 10 min communicating with other providers regarding the patient's case: Advanced Care Planning 09014 Advanced Care Planning 30 Min 47591 Advanced Care Planning Additional 30 [place] [address] IN/OBS CONSULT LVL 5,80M Patient Type New History Comprehensive Exam Comprehensive Medical Decision Making High Complexity Diagnoses Confusion R41.0 Generalized weakness R53.1 Anorexia R63.0 Discussion about advance care planning held with family member Z71.0 Palliative care by specialist Z51.5 Acute metabolic encephalopathy G93.41 Sepsis with encephalopathy, due to unspecified organism, unspecified whether septic shock present A41.9; R65.20; G93.41 Sepsis acute organ dysfunction status: with acute organ dysfunction Sepsis type: sepsis due to unspecified organism Severe sepsis acute organ dysfunction type: encephalopathy Severe sepsis shock status: unspecified Recurrent Clostridioides difficile infection A49.8 Acute UTI N39.0 Additional Codes Advanced Care Planning - 74463 Advanced Care Planning 30 Min: 20246 Advanced Care Planning 30 Min ([id number]) Advanced Care Planning - 70175 Advanced Care Planning Additional 30 Min: 10561 Advanced Care Planning Additional 30 Min ([id number])
--- NOTE | 2023-10-08 16:25 | Hospitalist Progress Note ---
Date of Service October 08, 2023 Assessment & Plan (1) Pancytopenia: (2) Complicated UTI (urinary tract infection): Plan 75-year-old female with type 2 diabetes, CKD stage III, hyperlipidemia, chronic drug-induced interstitial lung disorders, asthma mild persistent, COPD, chronic right-sided heart failure, hypertension, history of CAD, history of CVA, mild aortic stenosis, paroxysmal atrial fibrillation, moderate protein calorie malnutrition, slow transit constipation, vitamin B-12 and thiamine deficiency, history of esophageal dysphagia, GERD, gout, osteoarthritis, primary open-angle glaucoma, polyneuropathy, rheumatoid arthritis involving multiple sites with positive rheumatoid factor, depression, history of C. difficile, history of COVID, history of fever of unknown origin admitted with abnormal labwork at rehab. Pt has had multiple admissions and re-admissions. Continuous decline. Palliative Care consult placed for further recs after discussion with her . AMS Acute Metabolic Encephalopathy UTI Discussed with on admission, pt not at her baseline. Notes fever of 102 day of admission at [facility] rehab UA suggestive of infection, urine Cx with several organisms, repeat Ucultx positive - VRE - cont. dapto Chest XRAY with no acute changes CT chest with no acute findings in the chest Biofire negative Procal elevated at 2.31, lactate wnl Blood cx x2 with NGTD On Cefepime and empiric doxycycline initially Doxycycline, cefepime. switched cefepime to ertapenem, added daptomycin (10/03). ertapenem now stopped as ucultx posit.for vre repeat blood cultx - negat for 48 hrs. Fungal cultx - NGTD repeat Ucultx - VRE - cont. dapto AMS - change in mental status, acute on 10/03/2023 AM, Stroke alert was called - CT head, CTA head and neck negat., MRI brain negative Neurology consulted - consider EEG, LP if mental status not improving 10/04-10/06 - pt is awake, alert and answers simple questions, moves extremities, mental status overall improved 10/08- Pt more alert and interactive, palliative care consult- appreciate recs, would like rehab trial. Pancytopenia Pt with WBC 1.07K, Hgb 7.7, platelets 118K on admission Tick borne testing r/o- pt states she took a tick out off her cat about a month ago Biofire as above to rule out a viral suppression cause- negative Peripheral smear ordered, SPEP recommended Hematology consult- appreciate recs. - received iv iron x3 and neupogen x2 Empiric doxycycline for possible tick borne cause discontinued. Transfuse hgb as needed if <7, currently stable >8 10/04 discussed w/ hematology - would recommend bone marrow biopsy prior to discharge 10/07- hematology contacted once more for further recs 10/08- awaiting further recs Hypomagnesemia Replete and monitor Hyponatremia Sodium 129 on admission Chronic Hx, Known to nephrology service Nephrology consult placed now 129. Nephrology following- appreciate recs Elevated trop Atrial fibrillation Trops elevated at 25.3, downtrended to 23.2 EKG showed atrial fibrillation On metoprolol succinate 50mg BID, not on anticoagulation Doubt ACS Continue other home meds as ordered for now CODE STATUS: DNR/DNI after discussion with pt's DVT prophylaxis: Deferred in setting of thrombocytopenia/anemia Diet: HH/minced and moist Dispo: Palliative Care consult placed for goals discussion Admission and Anticipated Discharge Date Admission Date: September 29, 2023 Subjective Seen later in the day, as she was previously having discussions with palliative Care. Was more alert and talkative. Wanted to eat. Otherwise denied acute concerns. Review of Systems Review of Systems: All systems reviewed & are unremarkable except as noted in Subjective Physical Exam Physical Exam: General: Alert Psych: Appropriate mood and affect Neuro: weak, difficulty with movements HEENT: NC/AT CV: RRR Resp: some increased effort of breathing but breath sounds with no wheezing or rhonchi Abdomen: Soft Extremities: No edema in lower extremities bilaterally. Results & Data Results & Data Vital Signs (Past 12 Hours) Vital Signs Temp Pulse Pulse Resp BP BP Pulse Ox 10/08/23 15:54 37.3 C 63 18 135/63 99 10/08/23 11:00 37 C 67 18 171/67 H 100 10/08/23 08:00 81 10/08/23 07:45 10/08/23 07:33 37.5 C 77 18 149/70 H 96 O2 Del Method 10/08/23 15:54 Room Air 10/08/23 11:00 Room Air 10/08/23 08:00 10/08/23 07:45 Room Air 10/08/23 07:33 Room Air
[2023-10-08] MEDS: LATANOPROST 0.005% OP SOLN 2.5 ML BTL OPB SCH (21:12)
[2023-10-09] MEDS: ISOSORBIDE DINITRATE 10 MG TAB PO SCH ×2 (06:13→11:57)
[2023-10-09 07:14] LABS: Hematocrit (blood only) 24.5 % (37.0-47.0); Hemoglobin 8.2 g/dl (12.0-16.0); Mean Corpuscular Hgb Conc 33.5 g/dL (32.0-36.0); Mean Corpuscular Volume 83.6 fL (80.0-100.0); Mean Platelet Volume 8.8 fL (9.4-12.4); Platelet Count 150 K/uL (130-400); RDW Coefficient of Variation 19.4 % (11.5-14.5); RDW Standard Deviation 55.9 fL (36.4-46.3); Red Blood Count 2.93 M/uL (4.20-5.40); White Blood Count 2.44 K/ul (4.8-10.8)
[2023-10-09 07:37] LABS: Albumin Globulin Ratio 1.1 (0.9-2); Albumin Level 2.7 gm/dl (3.4-5.0); BUN Creatinine Ratio 21.5 (10-20); Bilirubin,Total 0.4 mg/dl (0.2-1.0); Calcium 9.1 mg/dl (8.6-10.3); Creatinine Clr Calc Pharmacy 47.3 ml/min; Est GFR (African American) 84.3 ml/min; Est GFR (Non-African American) 72.7 ml/min; Globulin 2.4 gm/dl (2.5-4.0); Magnesium 1.8 mg/dl (1.7-2.4); Phosphorus 3.4 mg/dl (2.5-4.9); Total Protein 5.1 gm/dl (6.0-8.3)
[2023-10-09 07:54] LABS: Basophils # (auto) 0.01 K/uL (0.00-0.20); Basophils % (auto) 0.4 %; Immature Granulocytes # (auto) 0.02 K/uL (0.01-0.20); Immature Granulocytes % (auto) 0.8 %; Lymphocytes # (auto) 1.39 K/uL (1.20-3.40); Monocytes # (auto) 0.39 K/uL (0.11-0.59); Neutrophils # (auto) 0.63 K/uL (1.40-6.50); Neutrophils % (auto) 25.8 %; Polychromasia 1+; Toxic Granulation 2+
[2023-10-09] MEDS: ARTIFICIAL TEARS OPB SCH ×4 (09:12→21:02)
--- NOTE | 2023-10-09 09:12 | Nephrology Progress Note ---
Date of Service October 09, 2023 Assessment & Plan Admission and Anticipated Discharge Date Admission Date: September 29, 2023 Subjective Assessment & Plan (1) Electrolyte and fluid disorder: Plan: stable mild hyponatremia (presenting sodium 129 up to 133 yesterday but now dropped again to 130) mild hypocalcemia, low phosphate with normal magnesium levels. urine osm is consistent with combination of Low Solute diet and SIADH. FFR 1200 ml per day. her protein intake /Solid food intake is very low--Now on Supplement--to continue. Eating almost nothing. Will be difficult to change serum Na much without major increase in Solid food intake. I did review palliative med consult D/c NS and D/c Iv lasix to see how she does without meds. Given the level of care we are aiming want to manage with lowest level of Meds Subjective Seems alert Answered basic Questions. Denies SOB or any pain. Not eating much. Na same Physical Exam Constitutional: well developed, no acute distress Eyes: EOM intact bilaterally ENMT: Ears: no external ear abnormality Nose: no external nose abnormality Mouth: + dry oral mucous membranes Neck: no nuchal rigidity Respiratory: normal respiratory effort Auscultation: + diminished lung sounds Cardiovascular: Rate/Rhythm: regular rate and regular rhythm Extremities: no edema Gastrointestinal (Abdomen): Inspection/Auscultation: normal bowel sounds Percussion/Palpation: abdomen soft; abdomen nontender Musculoskeletal: Extremities: strength 5/5 throughout Skin: no rashes, warm and dry Results & Data Vital Signs (Past 12 Hours) Vital Signs Temp Pulse Pulse Resp BP Pulse Ox O2 Del Method 10/09/23 07:26 36.8 C 67 16 145/56 H 97 Room Air 10/09/23 03:13 36.8 C 68 18 146/87 H 97 Room Air 10/08/23 23:07 36.6 C 69 18 148/74 H 98 Room Air 10/08/23 23:00 71
[2023-10-09] MEDS: FLUTICASONE/VILANTEROL 200/25MCG 14 PUFFS/INHALER INH SCH (09:13)
[2023-10-09] MEDS: MICONAZOLE NITRATE POWDER 85 GM TOP SCH ×2 (09:13→21:03)
[2023-10-09] MEDS: MAGNESIUM CHLORIDE W/CALCIUM 64MG DELAYED REL TAB PO SCH ×2 (09:14→21:01)
[2023-10-09] MEDS: METOPROLOL SUCC 50MG EXT REL TAB PO SCH ×2 (09:14→21:02)
[2023-10-09] MEDS: guaiFENesin 600 MG TABCR PO SCH ×2 (09:14→21:01)
[2023-10-09] MEDS: PANTOprazole 40 MG TAB PO SCH ×2 (09:14→21:02)
[2023-10-09] MEDS: DULoxetine HCL 60 MG CAP PO SCH (09:15)
[2023-10-09] MEDS: ADVANCED PROBIOTIC 1250 MG CAPSULE PO SCH ×2 (09:16→21:01)
[2023-10-09] MEDS: predniSONE 5 MG TAB PO SCH (09:16)
[2023-10-09] MEDS: OXYBUTYNIN CHLORIDE XL 5 MG TABCR PO SCH (09:16)
[2023-10-09] MEDS: MONTELUKAST SODIUM 10 MG TABLET PO SCH (09:16)
[2023-10-09] MEDS: CHOLECALCIFEROL 25 MCG (1000 UNITS) TAB PO SCH (09:16)
[2023-10-09] MEDS: THIAMINE HCL 50 MG TABLET PO SCH (09:16)
[2023-10-09] MEDS: POTASSIUM CHLORIDE PWD 20 MEQ PACK PO SCH (09:17)
[2023-10-09] MEDS: CYANOCOBALAMIN (B-12) 500 MCG TABLET PO SCH (09:17)
[2023-10-09] MEDS: MULTIVITAMIN TAB PO SCH (09:17)
[2023-10-09] MEDS: FOLIC ACID 1 MG TAB PO SCH (09:17)
[2023-10-09] MEDS: CEROVITE ADV FORMULA TAB PO SCH (09:17)
[2023-10-09] MEDS: CLOPIDOGREL BISULFATE 75 MG TAB PO SCH (09:17)
[2023-10-09] MEDS: DAPTOmycin 450 MG in SYRINGE 0 ML IV SCH (10:46)
[2023-10-09] MEDS: FUROSEMIDE INJ 20 MG/2 ML VIAL IV SCH (11:47)
--- NOTE | 2023-10-09 13:34 | Hospitalist Progress Note ---
Date of Service October 09, 2023 Assessment & Plan (1) Pancytopenia: (2) Complicated UTI (urinary tract infection): Plan 75-year-old female with type 2 diabetes, CKD stage III, hyperlipidemia, chronic drug-induced interstitial lung disorders, asthma mild persistent, COPD, chronic right-sided heart failure, hypertension, history of CAD, history of CVA, mild aortic stenosis, paroxysmal atrial fibrillation, moderate protein calorie malnutrition, slow transit constipation, vitamin B-12 and thiamine deficiency, history of esophageal dysphagia, GERD, gout, osteoarthritis, primary open-angle glaucoma, polyneuropathy, rheumatoid arthritis involving multiple sites with positive rheumatoid factor, depression, history of C. difficile, history of COVID, history of fever of unknown origin admitted with abnormal labwork at rehab. Pt has had multiple admissions and re-admissions. Continuous decline. Palliative Care consult placed for further recs after discussion with her . AMS Acute Metabolic Encephalopathy UTI Discussed with on admission, pt not at her baseline. Notes fever of [address] [facility] rehab UA suggestive of infection, urine Cx with several organisms, repeat Ucultx positive - VRE - cont. dapto Chest XRAY with no acute changes CT chest with no acute findings in the chest Biofire negative Procal elevated at 2.31, lactate wnl Blood cx x2 with NGTD On Cefepime and empiric doxycycline initially Doxycycline, cefepime. switched cefepime to ertapenem, added daptomycin (10/03). ertapenem now stopped as ucultx posit.for vre repeat blood cultx - negat for 48 hrs. Fungal cultx - NGTD repeat Ucultx - VRE - cont. dapto AMS - change in mental status, acute on 10/03/2023 AM, Stroke alert was called - CT head, CTA head and neck negat., MRI brain negative Neurology consulted - consider EEG, LP if mental status not improving 10/04-10/06 - pt is awake, alert and answers simple questions, moves extremities, mental status overall improved 10/08- Pt more alert and interactive, palliative care consult- appreciate recs, would like rehab trial. 10/09-stable, remains alert and oriented, interactive Pancytopenia Pt with WBC 1.07K, Hgb 7.7, platelets 118K on admission Tick borne testing r/o- pt states she took a tick out off her cat about a month ago Biofire as above to rule out a viral suppression cause- negative Peripheral smear ordered, SPEP recommended Hematology consult- appreciate recs. - received iv iron x3 and neupogen x2 Empiric doxycycline for possible tick borne cause discontinued. Transfuse hgb as needed if <7, currently stable >8 10/04 discussed w/ hematology - would recommend bone marrow biopsy prior to discharge 10/07- hematology contacted once more for further recs 10/08- awaiting further recs from hematology 10/09- hematology consult placed once more for bone marrow biopsy given pt does not want to go the palliative route Hypomagnesemia Replete and monitor Hyponatremia Sodium 129 on admission Chronic Hx, Known to nephrology service Nephrology consult placed now 129. Nephrology following- appreciate recs Elevated trop Atrial fibrillation Trops elevated at 25.3, downtrended to 23.2 EKG showed atrial fibrillation On metoprolol succinate 50mg BID, not on anticoagulation Doubt ACS Continue other home meds as ordered for now CODE STATUS: DNR/DNI after discussion with pt's DVT prophylaxis: Deferred in setting of thrombocytopenia/anemia Diet: HH/minced and moist Dispo: Palliative Care consult placed for goals discussion Admission and Anticipated Discharge Date Admission Date: September 29, 2023 Subjective Pt seen with feeding her. Joking and laughing, more alert Denied acute concerns. Review of Systems Review of Systems: All systems reviewed & are unremarkable except as noted in Subjective Physical Exam Physical Exam: General: Alert Psych: Appropriate mood and affect Neuro: weak, difficulty with movements HEENT: NC/AT CV: RRR Resp: some increased effort of breathing but breath sounds with no wheezing or rhonchi Abdomen: Soft Extremities: No edema in lower extremities bilaterally. Results & Data Results & Data Vital Signs (Past 12 Hours) Vital Signs Temp Pulse Pulse Resp BP BP Pulse Ox 10/09/23 11:54 37.1 C 77 16 171/73 H 97 10/09/23 09:54 75 10/09/23 07:26 36.8 C 67 16 145/56 H 97 10/09/23 03:13 36.8 C 68 18 146/87 H 97 O2 Del Method 10/09/23 11:54 Room Air 10/09/23 09:54 10/09/23 07:26 Room Air 10/09/23 03:13 Room Air
[2023-10-09] MEDS: LATANOPROST 0.005% OP SOLN 2.5 ML BTL OPB SCH (21:02)
[2023-10-10] MEDS: ISOSORBIDE DINITRATE 10 MG TAB PO SCH ×2 (06:23→13:11)
[2023-10-10 07:27] LABS: Hematocrit (blood only) 26.6 % (37.0-47.0); Hemoglobin 8.9 g/dl (12.0-16.0); Mean Corpuscular Hemoglobin 28.4 pg (25.0-34.0); Mean Corpuscular Hgb Conc 33.5 g/dL (32.0-36.0); Mean Platelet Volume 8.7 fL (9.4-12.4); Platelet Count 178 K/uL (130-400); RDW Coefficient of Variation 19.6 % (11.5-14.5); RDW Standard Deviation 58.2 fL (36.4-46.3); Red Blood Count 3.13 M/uL (4.20-5.40); White Blood Count 3.55 K/ul (4.8-10.8)
[2023-10-10 08:04] LABS: Albumin Globulin Ratio 1.2 (0.9-2); BUN Creatinine Ratio 20.5 (10-20); Bilirubin,Total 0.4 mg/dl (0.2-1.0); Calcium 9.4 mg/dl (8.6-10.3); Est GFR (African American) 85.6 ml/min; Est GFR (Non-African American) 73.8 ml/min; Globulin 2.5 gm/dl (2.5-4.0); Magnesium 1.7 mg/dl (1.7-2.4); Phosphorus 4.2 mg/dl (2.5-4.9); Potassium 4.1 mmol/L (3.5-5.1); Total Protein 5.5 gm/dl (6.0-8.3)
[2023-10-10 08:16] LABS: Anisocytosis Present; Basophils # (auto) 0.02 K/uL (0.00-0.20); Basophils % (auto) 0.6 %; Immature Granulocytes # (auto) 0.02 K/uL (0.01-0.20); Immature Granulocytes % (auto) 0.6 %; Lymphocytes # (auto) 1.95 K/uL (1.20-3.40); Lymphocytes % (auto) 54.9 %; Monocytes # (auto) 0.48 K/uL (0.11-0.59); Monocytes % (auto) 13.5 %; Neutrophils # (auto) 1.08 K/uL (1.40-6.50); Neutrophils % (auto) 30.4 %; Polychromasia 1+; Toxic Granulation 2+
[2023-10-10] MEDS: ARTIFICIAL TEARS OPB SCH ×4 (09:52→20:19)
[2023-10-10] MEDS: THIAMINE HCL 50 MG TABLET PO SCH (09:53)
[2023-10-10] MEDS: predniSONE 5 MG TAB PO SCH (09:53)
[2023-10-10] MEDS: MONTELUKAST SODIUM 10 MG TABLET PO SCH (09:53)
[2023-10-10] MEDS: PANTOprazole 40 MG TAB PO SCH ×2 (09:53→20:18)
[2023-10-10] MEDS: OXYBUTYNIN CHLORIDE XL 5 MG TABCR PO SCH (09:53)
[2023-10-10] MEDS: guaiFENesin 600 MG TABCR PO SCH ×2 (09:54→20:18)
[2023-10-10] MEDS: CLOPIDOGREL BISULFATE 75 MG TAB PO SCH (09:54)
[2023-10-10] MEDS: CEROVITE ADV FORMULA TAB PO SCH (09:54)
[2023-10-10] MEDS: POTASSIUM CHLORIDE PWD 20 MEQ PACK PO SCH (09:54)
[2023-10-10] MEDS: MULTIVITAMIN TAB PO SCH (09:54)
[2023-10-10] MEDS: MAGNESIUM CHLORIDE W/CALCIUM 64MG DELAYED REL TAB PO SCH ×2 (09:54→20:18)
[2023-10-10] MEDS: DULoxetine HCL 60 MG CAP PO SCH (09:54)
[2023-10-10] MEDS: ADVANCED PROBIOTIC 1250 MG CAPSULE PO SCH ×2 (09:54→20:18)
[2023-10-10] MEDS: FOLIC ACID 1 MG TAB PO SCH (09:54)
[2023-10-10] MEDS: METOPROLOL SUCC 50MG EXT REL TAB PO SCH ×2 (09:54→20:18)
[2023-10-10] MEDS: CHOLECALCIFEROL 25 MCG (1000 UNITS) TAB PO SCH (09:55)
[2023-10-10] MEDS: FLUTICASONE/VILANTEROL 200/25MCG 14 PUFFS/INHALER INH SCH (09:55)
[2023-10-10] MEDS: MICONAZOLE NITRATE POWDER 85 GM TOP SCH ×2 (09:55→20:18)
--- NOTE | 2023-10-10 10:03 | Hospitalist Progress Note ---
Date of Service October 10, 2023 Assessment & Plan (1) Pancytopenia: (2) Complicated UTI (urinary tract infection): Plan 75-year-old female with type 2 diabetes, CKD stage III, hyperlipidemia, chronic drug-induced interstitial lung disorders, asthma mild persistent, COPD, chronic right-sided heart failure, hypertension, history of CAD, history of CVA, mild aortic stenosis, paroxysmal atrial fibrillation, moderate protein calorie malnutrition, slow transit constipation, vitamin B-12 and thiamine deficiency, history of esophageal dysphagia, GERD, gout, osteoarthritis, primary open-angle glaucoma, polyneuropathy, rheumatoid arthritis involving multiple sites with positive rheumatoid factor, depression, history of C. difficile, history of COVID, history of fever of unknown origin admitted with abnormal labwork at rehab. Pt has had multiple admissions and re-admissions. Continuous decline. Palliative Care consult placed for further recs after discussion with her . AMS Acute Metabolic Encephalopathy UTI Discussed with on admission, pt not at her baseline. Notes fever of 102 day of admission at [facility] rehab UA suggestive of infection, urine Cx with several organisms, repeat Ucultx positive - VRE - cont. dapto Chest XRAY with no acute changes CT chest with no acute findings in the chest Biofire negative Procal elevated at 2.31, lactate wnl Blood cx x2 with NGTD On Cefepime and empiric doxycycline initially Doxycycline, cefepime. switched cefepime to ertapenem, added daptomycin (10/03). ertapenem now stopped as ucultx posit.for vre repeat blood cultx - negat for 48 hrs. Fungal cultx - NGTD repeat Ucultx - VRE with lots of resistance but sensitive to Dapto and macrobid. Pt received dapto x 8 days, switched to po macrobid for 2 additional days. AMS - change in mental status, acute on 10/03/2023 AM, Stroke alert was called - CT head, CTA head and neck negat., MRI brain negative Neurology consulted - consider EEG, LP if mental status not improving. Has been improving. 10/04-10/06 - pt is awake, alert and answers simple questions, moves extremities, mental status overall improved 10/08- Pt more alert and interactive, palliative care consult- appreciate recs, would like rehab trial. 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 - received iv iron x3 and neupogen x2 Empiric doxycycline for possible tick borne cause discontinued. Transfuse hgb as needed if <7, currently stable >8 10/04 discussed w/ hematology - would recommend bone marrow biopsy prior to discharge 10/07- hematology contacted once more for further recs 10/08- awaiting further recs from hematology 10/09- hematology consult placed once more for bone marrow biopsy given pt does not want to go the palliative route 10/10- Hematology NOT recommending bone marrow biopsy, appreciate recs. Hypomagnesemia Replete and monitor On daily supplements Currently wnl Hyponatremia Sodium 129 on admission Chronic Hx, Known to nephrology service Nephrology consult placed- appreciate recs Sodium currently stable at 131 Elevated trop Atrial fibrillation hs-Trop elevated at 25.3, downtrended to 23.2 EKG showed atrial fibrillation On metoprolol succinate 50mg BID, not on anticoagulation Doubt ACS Continue other home meds as ordered for now CODE STATUS: DNR/DNI after discussion with pt's DVT prophylaxis: Deferred in setting of thrombocytopenia/anemia Diet: HH/minced and moist Dispo: Palliative Care discussion-family would like to try rehab once more, referrals out. Admission and Anticipated Discharge Date Admission Date: September 29, 2023 Subjective Pt was seen in the AM. Was sleeping comfortably. Awakened, stated she was just tired. Later notified by nursing that pt stated the daptomycin burned. Review of Systems Review of Systems: All systems reviewed & are unremarkable except as noted in Subjective Physical Exam Physical Exam: General: Alert Psych: Appropriate mood and affect Neuro: weak, difficulty with movements HEENT: NC/AT CV: RRR Resp: no increased effort of breathing Abdomen: Soft Extremities: No edema in lower extremities bilaterally. Results & Data Results & Data Vital Signs (Past 12 Hours) Vital Signs Temp Pulse Resp BP Pulse Ox O2 Del Method 10/10/23 07:45 36.7 C 65 16 126/67 97 Room Air 10/10/23 02:35 36.5 C 87 20 169/87 H 96 Room Air 10/09/23 22:52 36.8 C 67 18 177/77 H 99 Room Air
[2023-10-10] MEDS: DAPTOmycin 450 MG in SYRINGE 0 ML IV SCH (11:23)
--- NOTE | 2023-10-10 12:37 | Hematology/Oncology Prog Note ---
Date of Service October 10, 2023 Assessment & Plan (1) Leukopenia: Plan: Leukopenia and anemia most likely result of patient's severe malnutrition, B12 deficiency and thiamine deficiency. At this point would refrain from further hematological workup such as a bone marrow biopsy. (2) Anemia: Plan: Anemia multifactorial, anemia of chronic disease secondary to interstitial lung disorder, rheumatoid arthritis, B12 deficiency and thiamine deficiency. Recommend close monitoring of CBC and transfuse for hemoglobin less than 7 Plan At this time do not recommend a bone marrow biopsy. Hematology will continue to follow the patient and make appropriate recommendations Admission and Anticipated Discharge Date Admission Date: September 29, 2023 Subjective Currently laying in bed, awake and alert. Continues to be pancytopenic. Has been evaluated by my colleague Dr. Scales previously for pancytopenia. He is weak and tired. Review of Systems Review of Systems: All systems reviewed & are unremarkable except as noted in HPI & below Constitutional: as per Subjective / HPI Results & Data Vital Signs (Past 12 Hours) Vital Signs Temp Pulse Resp BP Pulse Ox O2 Del Method 10/10/23 11:28 36.6 C 69 16 147/66 H Room Air 10/10/23 07:45 36.7 C 65 16 126/67 97 Room Air 10/10/23 02:35 36.5 C 87 20 169/87 H 96 Room Air
[2023-10-10] MEDS: LATANOPROST 0.005% OP SOLN 2.5 ML BTL OPB SCH (20:19)
[2023-10-10] MEDS: NITROFURANTOIN MONOHYDRATE 100 MG CAP PO SCH (21:44)
[2023-10-11] MEDS: ISOSORBIDE DINITRATE 10 MG TAB PO SCH ×2 (06:00→11:00)
[2023-10-11 07:42] LABS: Basophils # (auto) 0.01 K/uL (0.00-0.20); Basophils % (auto) 0.3 %; Hematocrit (blood only) 26.8 % (37.0-47.0); Hemoglobin 8.9 g/dl (12.0-16.0); Immature Granulocytes # (auto) 0.02 K/uL (0.01-0.20); Immature Granulocytes % (auto) 0.5 %; Lymphocytes # (auto) 1.84 K/uL (1.20-3.40); Lymphocytes % (auto) 48.5 %; Mean Corpuscular Hemoglobin 28.1 pg (25.0-34.0); Mean Corpuscular Hgb Conc 33.2 g/dL (32.0-36.0); Mean Corpuscular Volume 84.5 fL (80.0-100.0); Mean Platelet Volume 8.4 fL (9.4-12.4); Monocytes # (auto) 0.45 K/uL (0.11-0.59); Monocytes % (auto) 11.9 %; Neutrophils # (auto) 1.47 K/uL (1.40-6.50); Neutrophils % (auto) 38.8 %; Platelet Count 189 K/uL (130-400); RDW Coefficient of Variation 19.5 % (11.5-14.5); Red Blood Count 3.17 M/uL (4.20-5.40); White Blood Count 3.79 K/ul (4.8-10.8)
[2023-10-11 08:00] LABS: Albumin Globulin Ratio 1.2 (0.9-2); BUN Creatinine Ratio 25.9 (10-20); Bilirubin,Total 0.4 mg/dl (0.2-1.0); Calcium 9.5 mg/dl (8.6-10.3); Creatinine Clr Calc Pharmacy 44.2 ml/min; Est GFR (African American) 77.1 ml/min; Est GFR (Non-African American) 66.6 ml/min; Globulin 2.6 gm/dl (2.5-4.0); Magnesium 1.6 mg/dl (1.7-2.4); Potassium 4.2 mmol/L (3.5-5.1); Total Protein 5.6 gm/dl (6.0-8.3)
[2023-10-11] MEDS: MAGNESIUM CHLORIDE W/CALCIUM 64MG DELAYED REL TAB PO SCH ×2 (09:24→20:51)
[2023-10-11] MEDS: guaiFENesin 600 MG TABCR PO SCH ×2 (09:25→20:50)
[2023-10-11] MEDS: METOPROLOL SUCC 50MG EXT REL TAB PO SCH ×2 (09:25→20:51)
[2023-10-11] MEDS: PANTOprazole 40 MG TAB PO SCH ×2 (09:25→20:50)
[2023-10-11] MEDS: DULoxetine HCL 60 MG CAP PO SCH (09:25)
[2023-10-11] MEDS: NITROFURANTOIN MONOHYDRATE 100 MG CAP PO SCH ×2 (09:32→20:51)
[2023-10-11] MEDS: POTASSIUM CHLORIDE PWD 20 MEQ PACK PO SCH (09:32)
[2023-10-11] MEDS: OXYBUTYNIN CHLORIDE XL 5 MG TABCR PO SCH (09:32)
[2023-10-11] MEDS: ADVANCED PROBIOTIC 1250 MG CAPSULE PO SCH ×2 (09:33→20:51)
[2023-10-11] MEDS: MONTELUKAST SODIUM 10 MG TABLET PO SCH (09:33)
[2023-10-11] MEDS: MICONAZOLE NITRATE POWDER 85 GM TOP SCH ×2 (09:33→20:50)
[2023-10-11] MEDS: CLOPIDOGREL BISULFATE 75 MG TAB PO SCH (09:33)
[2023-10-11] MEDS: CHOLECALCIFEROL 25 MCG (1000 UNITS) TAB PO SCH (09:33)
[2023-10-11] MEDS: FOLIC ACID 1 MG TAB PO SCH (09:33)
[2023-10-11] MEDS: ARTIFICIAL TEARS OPB SCH ×4 (09:33→20:50)
[2023-10-11] MEDS: CEROVITE ADV FORMULA TAB PO SCH (09:33)
[2023-10-11] MEDS: THIAMINE HCL 50 MG TABLET PO SCH (09:33)
[2023-10-11] MEDS: FLUTICASONE/VILANTEROL 200/25MCG 14 PUFFS/INHALER INH SCH (09:34)
[2023-10-11] MEDS: MULTIVITAMIN TAB PO SCH (09:34)
[2023-10-11] MEDS: predniSONE 5 MG TAB PO SCH (09:36)
[2023-10-11] MEDS: MAGNESIUM SULFATE / D5W 1 GM/100 ML BAG IV SCH ×2 (11:01→13:15)
--- NOTE | 2023-10-11 11:50 | Hospitalist Progress Note ---
Date of Service October 11, 2023 Assessment & Plan (1) Pancytopenia: (2) Complicated UTI (urinary tract infection): Plan 75-year-old female with type 2 diabetes, CKD stage III, hyperlipidemia, chronic drug-induced interstitial lung disorders, asthma mild persistent, COPD, chronic right-sided heart failure, hypertension, history of CAD, history of CVA, mild aortic stenosis, paroxysmal atrial fibrillation, moderate protein calorie malnutrition, slow transit constipation, vitamin B-12 and thiamine deficiency, history of esophageal dysphagia, GERD, gout, osteoarthritis, primary open-angle glaucoma, polyneuropathy, rheumatoid arthritis involving multiple sites with positive rheumatoid factor, depression, history of C. difficile, history of COVID, history of fever of unknown origin admitted with abnormal labwork at rehab. Pt has had multiple admissions and re-admissions. Continuous decline. Palliative Care consult was placed for further recs after discussion with her . Pt and choosing to pursue course of rehab at this time. Pt is currently stable for discharge to acute rehab. AMS Acute Metabolic Encephalopathy UTI Discussed with on admission, pt not at her baseline. Notes fever of 102 day of admission at [facility] rehab UA suggestive of infection, urine Cx with several organisms, repeat Ucultx positive - VRE - cont. dapto Chest XRAY with no acute changes CT chest with no acute findings in the chest Biofire negative Procal elevated at 2.31, lactate wnl Blood cx x2 with NGTD On Cefepime and empiric doxycycline initially Doxycycline, cefepime. switched cefepime to ertapenem, added daptomycin (10/03). ertapenem now stopped as ucultx posit.for vre repeat blood cultx - negat for 48 hrs. Fungal cultx - NGTD repeat Ucultx - VRE with lots of resistance but sensitive to Dapto and macrobid. Pt received dapto x 8 days, switched to po macrobid for 2 additional days. AMS - change in mental status, acute on 10/03/2023 AM, Stroke alert was called - CT head, CTA head and neck negat., MRI brain negative Neurology consulted - consider EEG, LP if mental status not improving. Has been improving. 10/04-10/06 - pt is awake, alert and answers simple questions, moves extremities, mental status overall improved 10/08- Pt more alert and interactive, palliative care consult- appreciate recs, would like rehab trial. 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 Stable for discharge Pancytopenia Pt with WBC 1.07K, Hgb 7.7, platelets 118K on admission Tick borne testing r/o- pt states she took a tick out off her cat about a month ago Biofire as above to rule out a viral suppression cause- negative Peripheral smear ordered, SPEP recommended Hematology consult- appreciate recs. - received iv iron x3 and neupogen x2 Empiric doxycycline for possible tick borne cause discontinued. Transfuse hgb as needed if <7, currently stable >8 10/04 discussed w/ hematology - would recommend bone marrow biopsy prior to discharge 10/07- hematology contacted once more for further recs 10/08- awaiting further recs from hematology 10/09- hematology consult placed once more for bone marrow biopsy given pt does not want to go the palliative route 10/10- Hematology NOT recommending bone marrow biopsy, appreciate recs. 10/11- stable Hypomagnesemia Replete and monitor On daily supplements Hyponatremia Sodium 129 on admission Chronic Hx, Known to nephrology service Nephrology consult placed- appreciate recs -no fluid restriction -started on urea Sodium currently stable Elevated trop Atrial fibrillation hs-Trop elevated at 25.3, downtrended to 23.2 EKG showed atrial fibrillation On metoprolol succinate 50mg BID, not on anticoagulation Doubt ACS Continue other home meds as ordered for now CODE STATUS: DNR/DNI after discussion with pt's DVT prophylaxis: Deferred in setting of thrombocytopenia/anemia Diet: HH/minced and moist Dispo: Acute rehab placement, pt stable Admission and Anticipated Discharge Date Admission Date: September 29, 2023 Subjective Pt seen with at bedside. Still alert and interactive. Denied acute concerns. Review of Systems Review of Systems: All systems reviewed & are unremarkable except as noted in Subjective Physical Exam Physical Exam: General: Alert Psych: Appropriate mood and affect Neuro: weak, difficulty with movements HEENT: NC/AT CV: RRR Resp: no increased effort of breathing Abdomen: Soft Extremities: No edema in lower extremities bilaterally. Results & Data Results & Data Vital Signs (Past 12 Hours) Vital Signs Temp Pulse Resp BP Pulse Ox O2 Del Method 10/11/23 11:48 36.7 C 64 16 180/67 H 98 Room Air 10/11/23 07:43 36.8 C 72 16 166/73 H 98 Room Air 10/11/23 04:00 36.7 C 73 16 182/75 H 97 Room Air
--- NOTE | 2023-10-11 15:38 | Nephrology Progress Note ---
Date of Service October 11, 2023 Assessment & Plan (1) Electrolyte and fluid disorder: Plan: stable mild hyponatremia (presenting sodium 129 up to 131 on 09/30), -Will start urea 15 daily -for now no fluid limit needed -daily bmp, mag, phos -encourage po intake > pls see RD recs for more protein intake, more mag and phos rich foods; also recommended pt be fed Admission and Anticipated Discharge Date Admission Date: September 29, 2023 Subjective Seen for hyponatremia. Patient is eating better now. Sodium stable at 129. Review of Systems 2 Review of Systems: All other systems were reviewed and negative except as noted in HPI Physical Exam 2 Physical Exam: General exam: Appears comfortable, no acute distress HEENT: Pupils are equal and reactive to light Neck: No JVD, neck is supple trachea is midline Respiratory system: Clear breath sounds bilaterally. Gastrointestinal: Abdomen is soft, non distended, non tender, bowel sounds are present CVS: Regular rate and rhythm. No murmurs, rubs or gallops Musculoskeletal: No joint or muscle tenderness Extremities: Non tender, no edema, peripheral pulses are present Neuro: Oriented, no tremors, no focal neurological deficits Skin: No rashes Results & Data Vital Signs (Past 12 Hours) Vital Signs Temp Pulse Pulse Resp BP Pulse Ox O2 Del Method 10/11/23 11:48 36.7 C 64 16 180/67 H 98 Room Air 10/11/23 09:00 63 10/11/23 07:43 36.8 C 72 16 166/73 H 98 Room Air 10/11/23 04:00 36.7 C 73 16 182/75 H 97 Room Air Laboratory Results 10/11/23 07:19 10/11/23 07:19 WBC 3.79 L RBC 3.17 L MCV 84.5 MCH 28.1 MCHC 33.2 RDW Std Deviation 59.0 H RDW Coeff of Xochitl 19.5 H Plt Count 189 MPV 8.4 L Phosphorus 4.0 Albumin 3.0 L
[2023-10-11] MEDS: UREA (UREA-NA) 15 GM PACK PO SCH (16:10)
[2023-10-11] MEDS: LATANOPROST 0.005% OP SOLN 2.5 ML BTL OPB SCH (20:50)
[2023-10-11] MEDS: ROSUVASTATIN CALCIUM 20 MG TAB PO SCH (20:51)
[2023-10-12] MEDS: ISOSORBIDE DINITRATE 10 MG TAB PO SCH ×2 (06:21→13:33)
[2023-10-12 07:35] LABS: Basophils # (auto) 0.03 K/uL (0.00-0.20); Basophils % (auto) 0.7 %; Hematocrit (blood only) 28.1 % (37.0-47.0); Hemoglobin 9.4 g/dl (12.0-16.0); Immature Granulocytes # (auto) 0.03 K/uL (0.01-0.20); Immature Granulocytes % (auto) 0.7 %; Lymphocytes # (auto) 1.91 K/uL (1.20-3.40); Lymphocytes % (auto) 44.2 %; Mean Corpuscular Hemoglobin 27.8 pg (25.0-34.0); Mean Corpuscular Hgb Conc 33.5 g/dL (32.0-36.0); Mean Corpuscular Volume 83.1 fL (80.0-100.0); Mean Platelet Volume 8.2 fL (9.4-12.4); Monocytes # (auto) 0.52 K/uL (0.11-0.59); Neutrophils # (auto) 1.83 K/uL (1.40-6.50); Neutrophils % (auto) 42.4 %; Platelet Count 215 K/uL (130-400); RDW Coefficient of Variation 19.1 % (11.5-14.5); RDW Standard Deviation 56.6 fL (36.4-46.3); Red Blood Count 3.38 M/uL (4.20-5.40); White Blood Count 4.32 K/ul (4.8-10.8)
[2023-10-12 07:57] LABS: Albumin Globulin Ratio 1.2 (0.9-2); Albumin Level 3.2 gm/dl (3.4-5.0); Bilirubin,Total 0.4 mg/dl (0.2-1.0); Calcium 10.1 mg/dl (8.6-10.3); Creatinine Clr Calc Pharmacy 50.1 ml/min; Est GFR (African American) 89.7 ml/min; Est GFR (Non-African American) 77.4 ml/min; Globulin 2.7 gm/dl (2.5-4.0); Phosphorus 4.1 mg/dl (2.5-4.9); Potassium 4.2 mmol/L (3.5-5.1); Total Protein 5.9 gm/dl (6.0-8.3)
[2023-10-12] MEDS: guaiFENesin 600 MG TABCR PO SCH ×3 (10:00→20:30)
[2023-10-12] MEDS: MAGNESIUM CHLORIDE W/CALCIUM 64MG DELAYED REL TAB PO SCH ×3 (10:00→20:30)
[2023-10-12] MEDS: CHOLECALCIFEROL 25 MCG (1000 UNITS) TAB PO SCH (10:10)
[2023-10-12] MEDS: ARTIFICIAL TEARS OPB SCH ×4 (10:10→20:30)
[2023-10-12] MEDS: CLOPIDOGREL BISULFATE 75 MG TAB PO SCH (10:11)
[2023-10-12] MEDS: DULoxetine HCL 60 MG CAP PO SCH (10:11)
[2023-10-12] MEDS: FLUTICASONE/VILANTEROL 200/25MCG 14 PUFFS/INHALER INH SCH (10:12)
[2023-10-12] MEDS: FOLIC ACID 1 MG TAB PO SCH (10:12)
[2023-10-12] MEDS: CYANOCOBALAMIN (B-12) 500 MCG TABLET PO SCH (10:12)
[2023-10-12] MEDS: METOPROLOL SUCC 50MG EXT REL TAB PO SCH ×2 (10:14→20:30)
[2023-10-12] MEDS: ADVANCED PROBIOTIC 1250 MG CAPSULE PO SCH ×2 (10:14→20:30)
[2023-10-12] MEDS: MULTIVITAMIN TAB PO SCH (10:15)
[2023-10-12] MEDS: MONTELUKAST SODIUM 10 MG TABLET PO SCH (10:15)
[2023-10-12] MEDS: CEROVITE ADV FORMULA TAB PO SCH (10:16)
[2023-10-12] MEDS: NITROFURANTOIN MONOHYDRATE 100 MG CAP PO SCH (10:16)
[2023-10-12] MEDS: POTASSIUM CHLORIDE PWD 20 MEQ PACK PO SCH (10:17)
[2023-10-12] MEDS: OXYBUTYNIN CHLORIDE XL 5 MG TABCR PO SCH (10:17)
[2023-10-12] MEDS: PANTOprazole 40 MG TAB PO SCH ×2 (10:17→20:30)
[2023-10-12] MEDS: THIAMINE HCL 50 MG TABLET PO SCH (10:18)
[2023-10-12] MEDS: UREA (UREA-NA) 15 GM PACK PO SCH (10:18)
[2023-10-12] MEDS: predniSONE 5 MG TAB PO SCH (10:18)
[2023-10-12] MEDS: MICONAZOLE NITRATE POWDER 85 GM TOP SCH ×2 (10:28→20:30)
--- NOTE | 2023-10-12 17:41 | Hospitalist Progress Note ---
Date of Service October 12, 2023 Assessment & Plan (1) Pancytopenia: (2) Complicated UTI (urinary tract infection): Plan 75-year-old female with type 2 diabetes, CKD stage III, hyperlipidemia, chronic drug-induced interstitial lung disorders, asthma mild persistent, COPD, chronic right-sided heart failure, hypertension, history of CAD, history of CVA, mild aortic stenosis, paroxysmal atrial fibrillation, moderate protein calorie malnutrition, slow transit constipation, vitamin B-12 and thiamine deficiency, history of esophageal dysphagia, GERD, gout, osteoarthritis, primary open-angle glaucoma, polyneuropathy, rheumatoid arthritis involving multiple sites with positive rheumatoid factor, depression, history of C. difficile, history of COVID, history of fever of unknown origin admitted with abnormal labwork at rehab. Pt has had multiple admissions and re-admissions. Continuous decline. Palliative Care consult was placed for further recs after discussion with her . Pt and choosing to pursue course of rehab at this time. Pt is currently stable for discharge to acute rehab. AMS Acute Metabolic Encephalopathy UTI Discussed with on admission, pt not at her baseline. Notes fever of 102 day of admission at [facility] rehab UA suggestive of infection, urine Cx with several organisms, repeat Ucultx positive - VRE - cont. dapto Chest XRAY with no acute changes CT chest with no acute findings in the chest Biofire negative Procal elevated at 2.31, lactate wnl Blood cx x2 with NGTD On Cefepime and empiric doxycycline initially Doxycycline, cefepime. switched cefepime to ertapenem, added daptomycin (10/03). ertapenem now stopped as ucultx posit.for vre repeat blood cultx - negat for 48 hrs. Fungal cultx - NGTD repeat Ucultx - VRE with lots of resistance but sensitive to Dapto and macrobid. Pt received dapto x 8 days, switched to po macrobid for 2 additional days. AMS - change in mental status, acute on 10/03/2023 AM, Stroke alert was called - CT head, CTA head and neck negat., MRI brain negative Neurology consulted - consider EEG, LP if mental status not improving. Has been improving. 10/04-10/06 - pt is awake, alert and answers simple questions, moves extremities, mental status overall improved 10/08- Pt more alert and interactive, palliative care consult- appreciate recs, would like rehab trial. 10/09-stable, remains alert and oriented, interactive 10/10- pt interactive, alert, sending messages to her provider via nursing (pt was an [employer]) 10/11- pt remains stable. Stable for discharge 10/12-stable Pancytopenia Pt with WBC 1.07K, Hgb 7.7, platelets 118K on admission Tick borne testing r/o- pt states she took a tick out off her cat about a month ago Biofire as above to rule out a viral suppression cause- negative Peripheral smear ordered, SPEP recommended Hematology consult- appreciate recs. - received iv iron x3 and neupogen x2 Empiric doxycycline for possible tick borne cause discontinued. Transfuse hgb as needed if <7, currently stable >8 10/04 case was discussed w/ hematology by previous provider- would recommend bone marrow biopsy prior to discharge 10/07- hematology contacted once more for further recs 10/08- awaiting further recs from hematology 10/09- hematology consult placed once more for bone marrow biopsy given pt does not want to go the palliative route 10/10- Hematology NOT recommending bone marrow biopsy, appreciate recs. 10/11- stable Hypomagnesemia Replete and monitor On daily supplements Hyponatremia Sodium 129 on admission Chronic Hx, Known to nephrology service Nephrology consult placed- appreciate recs -no fluid restriction -started on urea Sodium currently stable Elevated trop Atrial fibrillation hs-Trop elevated at 25.3, downtrended to 23.2 EKG showed atrial fibrillation On metoprolol succinate 50mg BID, not on anticoagulation Doubt ACS Continue other home meds as ordered for now CODE STATUS: DNR/DNI after discussion with pt's DVT prophylaxis: Deferred in setting of thrombocytopenia/anemia Diet: HH/minced and moist Dispo: Acute rehab placement, pt stable Admission and Anticipated Discharge Date Admission Date: September 29, 2023 Subjective Was sitting up in bed. Alert and orientedx2, no acute distress. Denied acute concerns. Review of Systems Review of Systems: All systems reviewed & are unremarkable except as noted in Subjective Physical Exam Physical Exam: General: Alert Psych: Appropriate mood and affect Neuro: weak, difficulty with movements HEENT: NC/AT CV: RRR Resp: no increased effort of breathing Abdomen: Soft Extremities: No edema in lower extremities bilaterally. Results & Data Results & Data Vital Signs (Past 12 Hours) Vital Signs Temp Pulse Resp BP BP Pulse Ox O2 Del Method 10/12/23 10:15 68 118/63 10/12/23 07:04 36.4 C L 76 16 140/69 95 Room Air 10/12/23 06:15 36.7 C 76 18 140/74 96 Room Air
[2023-10-12] MEDS: LATANOPROST 0.005% OP SOLN 2.5 ML BTL OPB SCH (20:30)
[2023-10-12] MEDS: ROSUVASTATIN CALCIUM 20 MG TAB PO SCH (20:30)
[2023-10-13] MEDS: ISOSORBIDE DINITRATE 10 MG TAB PO SCH ×2 (06:07→12:24)
[2023-10-13 07:42] LABS: Basophils # (auto) 0.03 K/uL (0.00-0.20); Basophils % (auto) 0.7 %; Eosinophils # (auto) 0.01 K/uL (0.00-0.50); Eosinophils % (auto) 0.2 %; Hematocrit (blood only) 28.2 % (37.0-47.0); Hemoglobin 9.5 g/dl (12.0-16.0); Immature Granulocytes # (auto) 0.01 K/uL (0.01-0.20); Immature Granulocytes % (auto) 0.2 %; Lymphocytes # (auto) 1.96 K/uL (1.20-3.40); Lymphocytes % (auto) 43.2 %; Mean Corpuscular Hemoglobin 28.3 pg (25.0-34.0); Mean Corpuscular Hgb Conc 33.7 g/dL (32.0-36.0); Mean Corpuscular Volume 83.9 fL (80.0-100.0); Mean Platelet Volume 8.5 fL (9.4-12.4); Monocytes # (auto) 0.54 K/uL (0.11-0.59); Monocytes % (auto) 11.9 %; Neutrophils # (auto) 1.99 K/uL (1.40-6.50); Neutrophils % (auto) 43.8 %; Platelet Count 245 K/uL (130-400); RDW Coefficient of Variation 19.1 % (11.5-14.5); RDW Standard Deviation 57.7 fL (36.4-46.3); Red Blood Count 3.36 M/uL (4.20-5.40); White Blood Count 4.54 K/ul (4.8-10.8)
[2023-10-13 08:40] LABS: Albumin Globulin Ratio 1.2 (0.9-2); Albumin Level 3.3 gm/dl (3.4-5.0); BUN Creatinine Ratio 42.9 (10-20); Bilirubin,Total 0.4 mg/dl (0.2-1.0); Calcium 10.3 mg/dl (8.6-10.3); Creatinine Clr Calc Pharmacy 44.7 ml/min; Est GFR (African American) 78.2 ml/min; Est GFR (Non-African American) 67.5 ml/min; Globulin 2.7 gm/dl (2.5-4.0); Magnesium 1.7 mg/dl (1.7-2.4); Phosphorus 3.6 mg/dl (2.5-4.9); Potassium 4.2 mmol/L (3.5-5.1)
[2023-10-13] MEDS: ARTIFICIAL TEARS OPB SCH ×4 (10:22→20:03)
[2023-10-13] MEDS: CLOPIDOGREL BISULFATE 75 MG TAB PO SCH (10:28)
[2023-10-13] MEDS: guaiFENesin 600 MG TABCR PO SCH ×2 (10:29→20:03)
[2023-10-13] MEDS: MONTELUKAST SODIUM 10 MG TABLET PO SCH (10:29)
[2023-10-13] MEDS: METOPROLOL SUCC 50MG EXT REL TAB PO SCH ×2 (10:29→20:03)
[2023-10-13] MEDS: DULoxetine HCL 60 MG CAP PO SCH (10:29)
[2023-10-13] MEDS: UREA (UREA-NA) 15 GM PACK PO SCH (10:30)
[2023-10-13] MEDS: OXYBUTYNIN CHLORIDE XL 5 MG TABCR PO SCH (10:30)
[2023-10-13] MEDS: PANTOprazole 40 MG TAB PO SCH ×2 (10:30→20:03)
[2023-10-13] MEDS: predniSONE 5 MG TAB PO SCH (10:30)
[2023-10-13] MEDS: POTASSIUM CHLORIDE PWD 20 MEQ PACK PO SCH (10:32)
[2023-10-13] MEDS: MAGNESIUM CHLORIDE W/CALCIUM 64MG DELAYED REL TAB PO SCH ×2 (10:42→20:03)
[2023-10-13] MEDS: FOLIC ACID 1 MG TAB PO SCH (10:43)
[2023-10-13] MEDS: CHOLECALCIFEROL 25 MCG (1000 UNITS) TAB PO SCH (10:43)
[2023-10-13] MEDS: ADVANCED PROBIOTIC 1250 MG CAPSULE PO SCH ×2 (10:44→20:03)
[2023-10-13] MEDS: THIAMINE HCL 50 MG TABLET PO SCH (10:45)
[2023-10-13] MEDS: CEROVITE ADV FORMULA TAB PO SCH (10:45)
[2023-10-13] MEDS: MULTIVITAMIN TAB PO SCH (10:45)
[2023-10-13] MEDS: MICONAZOLE NITRATE POWDER 85 GM TOP SCH ×2 (10:45→20:02)
--- NOTE | 2023-10-13 11:43 | Nephrology Progress Note ---
Date of Service October 13, 2023 Assessment & Plan (1) Electrolyte and fluid disorder: Plan: stable mild hyponatremia (presenting sodium 129 up to 131 on 09/30), -tolerating urea 15 gm daily > will up to bid -for now no fluid limit needed -daily bmp, mag, phos -encourage po intake > pls see RD recs for more protein intake, more mag and phos rich foods; also recommended pt be fed Will sign off; care coordinated w/ Dr Alta MERINO D/C RECS -bmp weekly x 4 then every other week x 2; check mag every 2 wks x 3 >> all to be ordered by accepting facility and monitored by them -encourage po intake; pt may need to be followed more closely by RD at facility to ensure more mag, phos, protein and to evaluate whether she needs to be fed -d/c on urea 15 gm bid, po K 20 mEq daily -recommend hospital d/c appt in 4-6 wks w/ neph provider nearest her facility w/ BMP, mag to be ordered by neph nurses a week before appt and if previously mentioned sodiums have been <135 needs urine osms, serum osms, rd urine sodium ordered by neph nurse; ensure above labs available/ come w/ pt to appt Admission and Anticipated Discharge Date Admission Date: September 29, 2023 Subjective seen on midday rounds; no sob, no n/v; c/o cold intolerance Review of Systems 2 Review of Systems: All systems reviewed & are unremarkable except as noted in Subjective Physical Exam 2 Constitutional: well developed, well nourished, + cachectic, + physical limitations, + frail appearing and cooperative; no acute distress Eyes: EOM intact bilaterally ENMT: Ears: no external ear abnormality Nose: no external nose abnormality Mouth: + dry oral mucous membranes Neck: no nuchal rigidity Respiratory: normal respiratory effort Auscultation: + diminished lung sounds Cardiovascular: Rate/Rhythm: regular rate and regular rhythm Extremities: n o edema Gastrointestinal (Abdomen): Inspection/Auscultation: normal bowel sounds P ercussion/Palpation: abdomen soft; abdomen nontender Musculoskeletal: Extremities: strength 5/5 throughout Skin: no rashes, warm and dry Psychiatric: Orientation: alert, oriented to person and oriented to place Results & Data Vital Signs (Past 12 Hours) Vital Signs Temp Pulse Resp BP Pulse Ox O2 Del Method 10/13/23 07:56 36.8 C 73 18 170/75 H 97 Room Air Laboratory Results 10/13/23 06:48 10/13/23 06:48
[2023-10-13] MEDS: FLUTICASONE/VILANTEROL 200/25MCG 14 PUFFS/INHALER INH SCH (12:23)
--- NOTE | 2023-10-13 13:00 | Hospitalist Progress Note ---
Date of Service October 13, 2023 Assessment & Plan (1) Pancytopenia: (2) Complicated UTI (urinary tract infection): Plan 75-year-old female with type 2 diabetes, CKD stage III, hyperlipidemia, chronic drug-induced interstitial lung disorders, asthma mild persistent, COPD, chronic right-sided heart failure, hypertension, history of CAD, history of CVA, mild aortic stenosis, paroxysmal atrial fibrillation, moderate protein calorie malnutrition, slow transit constipation, vitamin B-12 and thiamine deficiency, history of esophageal dysphagia, GERD, gout, osteoarthritis, primary open-angle glaucoma, polyneuropathy, rheumatoid arthritis involving multiple sites with positive rheumatoid factor, depression, history of C. difficile, history of COVID, history of fever of unknown origin admitted with abnormal labwork at rehab. Pt has had multiple admissions and re-admissions. Continuous decline. Palliative Care consult was placed for further recs after discussion with her . Pt and choosing to pursue course of rehab at this time. Pt is currently stable for discharge to acute rehab. AMS Acute Metabolic Encephalopathy UTI Discussed with on admission, pt not at her baseline. Notes fever of 102 day of admission at [facility] rehab UA suggestive of infection, urine Cx with several organisms, repeat Ucultx positive - VRE - cont. dapto Chest XRAY with no acute changes CT chest with no acute findings in the chest Biofire negative Procal elevated at 2.31, lactate wnl Blood cx x2 with NGTD On Cefepime and empiric doxycycline initially Doxycycline, cefepime. switched cefepime to ertapenem, added daptomycin (10/03). ertapenem now stopped as ucultx posit.for vre repeat blood cultx - negat for 48 hrs. Fungal cultx - NGTD repeat Ucultx - VRE with lots of resistance but sensitive to Dapto and macrobid. Pt received dapto x 8 days, switched to po macrobid for 2 additional days. AMS - change in mental status, acute on 10/03/2023 AM, Stroke alert was called - CT head, CTA head and neck negat., MRI brain negative Neurology consulted - consider EEG, LP if mental status not improving. Has been improving. 10/04-10/06 - pt is awake, alert and answers simple questions, moves extremities, mental status overall improved 10/08- Pt more alert and interactive, palliative care consult- appreciate recs, would like rehab trial. 10/09-stable, remains alert and oriented, interactive 10/10- pt interactive, alert, sending messages to her provider via nursing (pt was an [employer]) 10/11- pt remains stable. Stable for discharge 10/12-stable 10/13- pt was alert but not as chirpy today, noting that her room was cold and asking for blankets. present also felt room was cold. However UA order placed to rule out another UTI as pt completed macrobid therapy with last dose AM of 10/12. UA suggestive of recurrent infection with +nitrite. Started on po macrobid once more. Follow urine Cx. Pancytopenia Pt with WBC 1.07K, Hgb 7.7, platelets 118K on admission Tick borne testing r/o- pt states she took a tick out off her cat about a month ago Biofire as above to rule out a viral suppression cause- negative Peripheral smear ordered, SPEP recommended Hematology consult- appreciate recs. - received iv iron x3 and neupogen x2 Empiric doxycycline for possible tick borne cause discontinued. Transfuse hgb as needed if <7, currently stable >8 10/04 case was discussed w/ hematology by previous provider- would recommend bone marrow biopsy prior to discharge 10/07- hematology contacted once more for further recs 10/08- awaiting further recs from hematology 10/09- hematology consult placed once more for bone marrow biopsy given pt does not want to go the palliative route 10/10- Hematology NOT recommending bone marrow biopsy, appreciate recs. 10/11- stable 10/12- stable, counts generally improving Hypomagnesemia Replete and monitor On daily supplements Hyponatremia Sodium 129 on admission Chronic Hx, Known to nephrology service Nephrology consult placed- appreciate recs -no fluid restriction -started on urea, continue -signed off and placed recs for discharge in chart on 10/13 Sodium currently stable Elevated trop Atrial fibrillation hs-Trop elevated at 25.3, downtrended to 23.2 EKG showed atrial fibrillation On metoprolol succinate 50mg BID, not on anticoagulation Doubt ACS Continue other home meds as ordered for now CODE STATUS: DNR/DNI after discussion with pt's DVT prophylaxis: Deferred in setting of thrombocytopenia/anemia Diet: HH/minced and moist Dispo: Acute rehab placement Admission and Anticipated Discharge Date Admission Date: September 29, 2023 Subjective Pt was seen in the AM. Not as chirpy today. Stated that she was tired and cold. also noting that room was cold. Review of Systems Review of Systems: All systems reviewed & are unremarkable except as noted in Subjective Physical Exam Physical Exam: General: Alert Psych: Appropriate mood and affect Neuro: weak, difficulty with movements HEENT: NC/AT CV: RRR Resp: no increased effort of breathing Abdomen: Soft Extremities: No edema in lower extremities bilaterally. Results & Data Results & Data Vital Signs (Past 12 Hours) Vital Signs Temp Pulse Resp BP Pulse Ox O2 Del Method 10/13/23 07:56 36.8 C 73 18 170/75 H 97 Room Air
[2023-10-13 17:25] LABS: Appearance Urine Turbid (Clear); Bacteria Urine Automated 4+ (Negative); Bilirubin Urine Negative (Negative); Blood Urine 1+ (Negative); Cast Urine Automated 0 /lpf (0-5); Color Urine Yellow; Glucose Urine UA Negative (Negative); Ketones Urine Negative (Negative); Leukocyte Esterase Urine 3+ (Negative); Nitrite Urine Positive (Negative); Protein Urine 1+ (Negative); Specific Gravity Urine 1.009 (1.000-1.030); Urobilinogen Urine Negative (Negative); WBC Urine Automated >30 /hpf (0-5)
[2023-10-13 17:46] LABS: RBC Urine Automated 0-4 /hpf (0-4)
[2023-10-13] MEDS: LATANOPROST 0.005% OP SOLN 2.5 ML BTL OPB SCH (20:02)
[2023-10-13] MEDS: ROSUVASTATIN CALCIUM 20 MG TAB PO SCH (20:03)
[2023-10-13] MEDS: NITROFURANTOIN MONOHYDRATE 100 MG CAP PO SCH (20:03)
[2023-10-13] MEDS ORDERED: LOPERAMIDE HCL 2 MG CAP PO PRN (21:25)
[2023-10-14] MEDS: ISOSORBIDE DINITRATE 10 MG TAB PO SCH ×2 (06:23→12:19)
[2023-10-14 07:46] LABS: Basophils # (auto) 0.04 K/uL (0.00-0.20); Basophils % (auto) 0.8 %; Eosinophils # (auto) 0.01 K/uL (0.00-0.50); Eosinophils % (auto) 0.2 %; Hematocrit (blood only) 32.5 % (37.0-47.0); Hemoglobin 10.7 g/dl (12.0-16.0); Immature Granulocytes # (auto) 0.02 K/uL (0.01-0.20); Immature Granulocytes % (auto) 0.4 %; Lymphocytes # (auto) 2.32 K/uL (1.20-3.40); Lymphocytes % (auto) 44.9 %; Mean Corpuscular Hemoglobin 27.9 pg (25.0-34.0); Mean Corpuscular Hgb Conc 32.9 g/dL (32.0-36.0); Mean Corpuscular Volume 84.9 fL (80.0-100.0); Mean Platelet Volume 8.2 fL (9.4-12.4); Monocytes # (auto) 0.62 K/uL (0.11-0.59); Neutrophils # (auto) 2.16 K/uL (1.40-6.50); Neutrophils % (auto) 41.7 %; Platelet Count 274 K/uL (130-400); RDW Coefficient of Variation 18.8 % (11.5-14.5); RDW Standard Deviation 58.2 fL (36.4-46.3); Red Blood Count 3.83 M/uL (4.20-5.40); White Blood Count 5.17 K/ul (4.8-10.8)
[2023-10-14 07:47] LABS: Albumin Level 3.6 gm/dl (3.4-5.0); Bilirubin,Total 0.5 mg/dl (0.2-1.0); Calcium 10.7 mg/dl (8.6-10.3); Magnesium 1.8 mg/dl (1.7-2.4); Potassium 3.9 mmol/L (3.5-5.1)
[2023-10-14 07:53] LABS: Albumin Globulin Ratio 1.3 (0.9-2); BUN Creatinine Ratio 50.6 (10-20); Creatinine Clr Calc Pharmacy 47.5 ml/min; Est GFR (African American) 84.3 ml/min; Est GFR (Non-African American) 72.7 ml/min; Globulin 2.8 gm/dl (2.5-4.0); Phosphorus 4.1 mg/dl (2.5-4.9); Total Protein 6.4 gm/dl (6.0-8.3)
--- NOTE | 2023-10-14 09:48 | Hospitalist Progress Note ---
Date of Service October 14, 2023 Assessment & Plan (1) Pancytopenia: (2) Complicated UTI (urinary tract infection): Plan 75 yo F with type 2 diabetes, CKD stage III, hyperlipidemia, chronic drug- induced interstitial lung disorders, asthma mild persistent, COPD, chronic right-sided heart failure, hypertension, history of CAD, history of CVA, mild aortic stenosis, paroxysmal atrial fibrillation, moderate protein calorie malnutrition, slow transit constipation, vitamin B-12 and thiamine deficiency, history of esophageal dysphagia, GERD, gout, osteoarthritis, primary open-angle glaucoma, polyneuropathy, rheumatoid arthritis involving multiple sites with positive rheumatoid factor, depression, history of C. difficile, history of COVID, history of fever of unknown origin admitted with abnormal labwork at rehab. Pt has had multiple admissions and re-admissions. Continuous decline. Palliative Care consult was placed for further recs after discussion with her . Pt and choosing to pursue course of rehab at this time. AMS Acute Metabolic Encephalopathy UTI Discussed with on admission, pt not at her baseline. Notes fever of [address] [facility] rehab UA suggestive of infection, urine Cx with several organisms, repeat Ucultx positive - VRE - treated with dapto/ macrobid Chest XRAY with no acute changes CT chest with no acute findings in the chest Biofire negative Procal elevated at 2.31, lactate wnl Blood cx x2 with NGTD On Cefepime and empiric doxycycline initially Doxycycline, cefepime. switched cefepime to ertapenem, added daptomycin (10/03). ertapenem then stopped as ucultx posit.for vre repeat blood cultx - negat for 48 hrs. Fungal cultx - NGTD repeat Ucultx - VRE with lots of resistance but sensitive to Dapto and macrobid. Pt received dapto x 8 days, switched to po macrobid for 2 additional days. AMS - change in mental status, acute on 10/03/2023 AM, Stroke alert was called - CT head, CTA head and neck negat., MRI brain negative Neurology consulted - consider EEG, LP if mental status not improving. Has been improving. 10/04-10/06 - pt is awake, alert and answers simple questions, moves extremities, mental status overall improved 10/08- Pt more alert and interactive, palliative care consult- appreciate recs, would like rehab trial. 10/09-10/12 -stable, remains alert and oriented, interactive 10/13- pt was alert but not as talkative, noting that her room was cold and asking for blankets. present also felt room was cold. However UA order placed to rule out another UTI as pt completed macrobid therapy with last dose AM of 10/12. UA suggestive of recurrent infection with +nitrite. Started on po macrobid once more. Follow urine Cx. Urine cultx (10/13) GNB This is likely secondary d/t pt being incontinent. Imodium started and discussed in detail w/ RN at the bedside. Pancytopenia Pt with WBC 1.07K, Hgb 7.7, platelets 118K on admission Tick borne testing r/o- pt states she took a tick out off her cat about a month ago Biofire as above to rule out a viral suppression cause- negative Peripheral smear ordered, SPEP recommended Hematology consult- appreciate recs. - received iv iron x3 and neupogen x2 Empiric doxycycline for possible tick borne cause discontinued. Transfuse hgb as needed if <7, currently stable >8 10/04 case was discussed w/ hematology/ oncology - would recommend bone marrow biopsy prior to discharge 10/09- hematology consult placed once more for bone marrow biopsy given pt does not want to go the palliative route 10/10- Hematology NOT recommending bone marrow biopsy, appreciate recs. 10/12- stable, counts generally improving Hypomagnesemia Replete and monitor On daily supplements Hyponatremia Sodium 129 on admission Chronic Hx, Known to nephrology service Nephrology consult placed- appreciate recs -no fluid restriction -started on urea, continue -signed off and placed recs for discharge in chart on 10/13 Sodium currently stable NEPHRO D/C RECS -bmp weekly x 4 then every other week x 2; check mag every 2 wks x 3 >> all to be ordered by accepting facility and monitored by them -encourage po intake; pt may need to be followed more closely by RD at facility to ensure more mag, phos, protein and to evaluate whether she needs to be fed -d/c on urea 15 gm bid, po K 20 mEq daily -recommend hospital d/c appt in 4-6 wks w/ neph provider nearest her facility w/ BMP, mag to be ordered by neph nurses a week before appt and if previously mentioned sodiums have been <135 needs urine osms, serum osms, rd urine sodium ordered by neph nurse; ensure above labs available/ come w/ pt to appt Elevated trop Atrial fibrillation hs-Trop elevated at 25.3, downtrended to 23.2 EKG showed atrial fibrillation On metoprolol succinate 50mg BID, not on anticoagulation Doubt ACS Continue other home meds as ordered for now CODE STATUS: DNR/DNI after discussion with pt's DVT prophylaxis: Deferred in setting of thrombocytopenia/anemia Diet: HH/minced and moist Dispo: Acute rehab placement Admission and Anticipated Discharge Date Admission Date: September 29, 2023 Subjective Pt seen in follow up of AMS, UTI Currently laying in bed, in no acute distress Patient's is present at bedside Patient currently denies any fever chills chest pain shortness of breath abdominal pain. Says she has been eating some. Urine dip. Per previous provider, consistent with UTI. Discussed with RN, patient incontinent of stool. Previously checked for C. difficile was negative. Will try Imodium. Patient is using PureWick. Discussed in detail with RN possible ways to hopefully prevent any more UTIs. Review of Systems Review of Systems: All systems reviewed & are unremarkable except as noted in Subjective Physical Exam Physical Exam: General: elderly thin F, + chronically ill appearing, in NAD HEENT: NC/AT CV: RRR Resp: no increased effort of breathing Abdomen: Soft, nontender, + bowel sounds Extremities: No edema in lower extremities bilaterally. Psych: Appropriate mood and affect Neuro: weak, difficulty with movements Results & Data Results & Data Vital Signs (Past 12 Hours) Vital Signs Temp Pulse Resp BP Pulse Ox O2 Del Method 10/14/23 07:11 36.4 C L 66 16 122/64 97 Room Air Laboratory Results 10/14/23 10/13/23 Range/Units 07:10 16:35 WBC 5.17 (4.8-10.8) K/ul RBC 3.83 L (4.20-5.40) M/uL Hgb 10.7 L (12.0-16.0) g/dl Hct 32.5 L (37.0-47.0) % MCV 84.9 (80.0-100.0) fL MCH 27.9 (25.0-34.0) pg MCHC 32.9 (32.0-36.0) g/dL RDW Std Deviation 58.2 H (36.4-46.3) fL RDW Coeff of Xochitl 18.8 H (11.5-14.5) % Plt Count 274 (130-400) K/uL MPV 8.2 L (9.4-12.4) fL Immature Gran % (Auto) 0.4 % Neut % (Auto) 41.7 % Lymph % (Auto) 44.9 % [place] % (Auto) 12.0 % Eos % (Auto) 0.2 % Baso % (Auto) 0.8 % Neut # (Auto) 2.16 (1.40-6.50) K/uL Lymph # (Auto) 2.32 (1.20-3.40) K/uL [place] # (Auto) 0.62 H (0.11-0.59) K/uL Eos # (Auto) 0.01 (0.00-0.50) K/uL Baso # (Auto) 0.04 (0.00-0.20) K/uL Immature Gran # (Auto) 0.02 (0.01-0.20) K/uL Sodium 128 L (136-145) mmol/L Potassium 3.9 (3.5-5.1) mmol/L Chloride 92 L (98-107) mmol/L Carbon Dioxide 26 (21-32) mmol/L Anion Gap 10 (3-11) BUN 40 H (6-23) mg/dl Creatinine 0.79 (0.6-1.2) mg/dl Est Cr Clr Drug Dosing 47.5 ml/min Est GFR ( Amer) 84.3 ml/min Est GFR (Non-Af Amer) 72.7 ml/min BUN/Creatinine Ratio 50.6 H (10-20) Glucose 97 (70-99(Fasting)) mg/dl Calcium 10.7 H (8.6-10.3) mg/dl Phosphorus 4.1 (2.5-4.9) mg/dl Magnesium 1.8 (1.7-2.4) mg/dl Total Bilirubin 0.5 (0.2-1.0) mg/dl AST 57 H (13-39) U/L ALT 20 (7-52) U/L Alkaline Phosphatase 124 H (34-104) U/L Total Protein 6.4 (6.0-8.3) gm/dl Albumin 3.6 (3.4-5.0) gm/dl Globulin 2.8 (2.5-4.0) gm/dl Albumin/Globulin Ratio 1.3 (0.9-2) Urine Color Yellow Urine Appearance Turbid A (Clear) Urine pH 7.0 (4.5-7.5) Ur Specific [place] 1.009 (1.000-1.030) Urine Protein 1+ H (Negative) Urine Glucose (UA) Negative (Negative) Urine Ketones Negative (Negative) Urine Blood 1+ H (Negative) Urine Nitrite Positive A (Negative) Urine Bilirubin Negative (Negative) Urine Urobilinogen Negative (Negative) Ur Leukocyte Esterase 3+ H (Negative) Urine WBC (Auto) >30 H (0-5) /hpf Urine RBC (Auto) 0-4 (0-4) /hpf U Hyaline Cast (Auto) 0 (0-5) /lpf U Epithel Cells (Auto) 5-10 H (0-5) /lpf Urine Bacteria (Auto) 4+ H (Negative) Urine Yeast Not Reportable Medications Administered Current Inpatient Medications Acetaminophen (Acetaminophen 325 Mg Tab) 650 mg PO Q4 PRN PRN Reason: Fever Or Pain Stop: 10/29/23 21:30 Last Admin: 10/02/23 12:03 Dose: 650 mg Albuterol (Albuterol Hfa 8 Gm Inhaler) 2 puffs INH Q4 PRN PRN Reason: Shortness Of Breath Stop: 10/29/23 21:30 Albuterol (Albuterol 0.083% Nebu Soln 3 Ml Vial) 2.5 mg INH QIDR PRN; Protocol PRN Reason: Shortness Of Breath Or Wheezin Stop: 10/29/23 21:30 Artificial Tears (Artificial Tears) 1 drops OPB QID [facility] Stop: 11/01/23 16:59 Last Admin: 10/13/23 20:03 Dose: 1 drops Clopidogrel Bisulfate (Clopidogrel Bisulfate 75 Mg Tab) 75 mg PO QAM [facility] Stop: 10/30/23 08:59 Last Admin: 10/13/23 10:28 Dose: 75 mg Cyanocobalamin (Cyanocobalamin (B-12) 500 Mcg Tablet) 2,000 mcg PO MoWeFr@0900 [facility] Stop: 10/30/23 08:59 Last Admin: 10/12/23 10:12 Dose: 2,000 mcg Duloxetine HCl (Duloxetine Hcl 60 Mg Cap) 60 mg PO QAM [facility] Stop: 10/30/23 08:59 Last Admin: 10/13/23 10:29 Dose: 60 mg Fluticasone/Vilanterol (Fluticasone/Vilanterol 200/25mcg 14 Puffs/Inhaler) 1 puffs INH DAILY [facility] Stop: 10/30/23 08:59 Last Admin: 10/13/23 12:23 Dose: 1 puffs Folic Acid (Folic Acid 1 Mg Tab) 1 mg PO QAM [facility] Stop: 10/30/23 08:59 Last Admin: 10/13/23 10:43 Dose: 1 mg Guaifenesin (Guaifenesin 600 Mg Tabcr) 600 mg PO Q12 [facility] Stop: 10/29/23 21:44 Last Admin: 10/13/23 20:03 Dose: 600 mg Isosorbide Dinitrate (Isosorbide Dinitrate 10 Mg Tab) 10 mg PO BID@0700,1200 [facility] Stop: 10/30/23 06:59 Last Admin: 10/14/23 06:23 Dose: 10 mg Lactobacillus Acidophilus (Advanced Probiotic 1250 Mg Capsule) 1 cap PO BID [facility] Stop: 10/29/23 21:44 Last Admin: 10/13/23 20:03 Dose: 1 cap Latanoprost (Latanoprost 0.005% Op Soln 2.5 Ml Btl) 1 drops OPB HS [facility] Stop: 10/29/23 21:44 Last Admin: 10/13/23 20:02 Dose: 1 drops Loperamide HCl (Loperamide Hcl 2 Mg Cap) 2 mg PO Q4H PRN PRN Reason: Diarrhea Stop: 11/12/23 21:24 Magnesium Chloride (Magnesium Chloride W/Calcium 64mg Delayed Rel Tab) 64 mg PO BID [facility] Stop: 11/05/23 10:14 Last Admin: 10/13/23 20:03 Dose: 64 mg Metoprolol Succinate (Metoprolol Succ 50mg Ext Rel Tab) 50 mg PO BID [facility] Stop: 10/29/23 21:44 Last Admin: 10/13/23 20:03 Dose: 50 mg Miconazole Nitrate (Miconazole Nitrate Powder 85 Gm) 1 appln TOP BID [facility] Stop: 10/29/23 21:30 Last Admin: 10/13/23 20:02 Dose: 1 appln Montelukast Sodium (Montelukast Sodium 10 Mg Tablet) 10 mg PO QAM [facility] Stop: 10/30/23 08:59 Last Admin: 10/13/23 10:29 Dose: 10 mg Multivitamins (Multivitamin Tab) 1 tab PO QAM [facility] Stop: 10/30/23 08:59 Last Admin: 10/13/23 10:45 Dose: 1 tab Multivitamins/Minerals (Cerovite Adv Formula Tab) 1 tab PO QAM [facility] Stop: 10/30/23 08:59 Last Admin: 10/13/23 10:45 Dose: 1 tab Nitrofurantoin Macrocrystals (Nitrofurantoin Monohydrate 100 Mg Cap) 100 mg PO BID [facility] Stop: 10/23/23 20:59 Last Admin: 10/13/23 20:03 Dose: 100 mg Oxybutynin Chloride (Oxybutynin Chloride Xl 5 Mg Tabcr) 10 mg PO QAM [facility] Stop: 10/30/23 08:59 Last Admin: 10/13/23 10:30 Dose: 10 mg Pantoprazole Sodium (Pantoprazole 40 Mg Tab) 40 mg PO BID [facility] Stop: 10/29/23 21:44 Last Admin: 10/13/23 20:03 Dose: 40 mg Potassium Chloride (Potassium Chloride Pwd 20 Meq Pack) 20 meq PO DAILY [facility] Stop: 11/07/23 08:59 Last Admin: 10/13/23 10:32 Dose: 20 meq Prednisone (Prednisone 5 Mg Tab) 5 mg PO QAM [facility] Stop: 10/30/23 08:59 Last Admin: 10/13/23 10:30 Dose: 5 mg Rosuvastatin Calcium (Rosuvastatin Calcium 20 Mg Tab) 20 mg PO HS [facility] Stop: 10/29/23 21:44 Last Admin: 10/13/23 20:03 Dose: 20 mg Silver Sulfadiazine (Silver Sulfadiazine 1% Cr 50 Gm Jar) 1 appln TOP UD PRN PRN Reason: DRESSING CHANGES Stop: 10/29/23 21:30 Thiamine HCl (Thiamine Hcl 50 Mg Tablet) 50 mg PO QAM [facility] Stop: 10/30/23 08:59 Last Admin: 10/13/23 10:45 Dose: 50 mg Urea (Urea (Urea-Na) 15 Gm Pack) 15 gm PO DAILY [facility] Stop: 11/10/23 15:44 Last Admin: 10/13/23 10:30 Dose: 15 gm Vitamin D (Cholecalciferol 1,000 Units 25 Mcg Tab) 2,000 units PO QAM [facility] Stop: 10/30/23 08:59 Last Admin: 10/13/23 10:43 Dose: 2,000 units
[2023-10-14] MEDS: ARTIFICIAL TEARS OPB SCH ×4 (10:02→20:24)
[2023-10-14] MEDS: UREA (UREA-NA) 15 GM PACK PO SCH (10:04)
[2023-10-14] MEDS: POTASSIUM CHLORIDE PWD 20 MEQ PACK PO SCH (10:06)
[2023-10-14] MEDS: FLUTICASONE/VILANTEROL 200/25MCG 14 PUFFS/INHALER INH SCH (10:06)
[2023-10-14] MEDS: CLOPIDOGREL BISULFATE 75 MG TAB PO SCH (10:08)
[2023-10-14] MEDS: METOPROLOL SUCC 50MG EXT REL TAB PO SCH ×2 (10:09→20:23)
[2023-10-14] MEDS: OXYBUTYNIN CHLORIDE XL 5 MG TABCR PO SCH (10:09)
[2023-10-14] MEDS: predniSONE 5 MG TAB PO SCH (10:09)
[2023-10-14] MEDS: PANTOprazole 40 MG TAB PO SCH ×2 (10:09→20:23)
[2023-10-14] MEDS: MONTELUKAST SODIUM 10 MG TABLET PO SCH (10:09)
[2023-10-14] MEDS: guaiFENesin 600 MG TABCR PO SCH ×2 (10:15→20:24)
[2023-10-14] MEDS: DULoxetine HCL 60 MG CAP PO SCH (10:15)
[2023-10-14] MEDS: NITROFURANTOIN MONOHYDRATE 100 MG CAP PO SCH ×2 (10:15→20:23)
[2023-10-14] MEDS: CHOLECALCIFEROL 25 MCG (1000 UNITS) TAB PO SCH (10:30)
[2023-10-14] MEDS: MAGNESIUM CHLORIDE W/CALCIUM 64MG DELAYED REL TAB PO SCH ×2 (10:30→20:23)
[2023-10-14] MEDS: MULTIVITAMIN TAB PO SCH (10:31)
[2023-10-14] MEDS: CYANOCOBALAMIN (B-12) 500 MCG TABLET PO SCH (10:31)
[2023-10-14] MEDS: CEROVITE ADV FORMULA TAB PO SCH (10:32)
[2023-10-14] MEDS: FOLIC ACID 1 MG TAB PO SCH (10:32)
[2023-10-14] MEDS: ADVANCED PROBIOTIC 1250 MG CAPSULE PO SCH ×2 (10:33→20:24)
[2023-10-14] MEDS: THIAMINE HCL 50 MG TABLET PO SCH (10:33)
[2023-10-14] MEDS: MICONAZOLE NITRATE POWDER 85 GM TOP SCH ×2 (10:34→20:24)
[2023-10-14] MEDS: LATANOPROST 0.005% OP SOLN 2.5 ML BTL OPB SCH (20:22)
[2023-10-15] MEDS: ISOSORBIDE DINITRATE 10 MG TAB PO SCH ×2 (06:18→14:59)
[2023-10-15 07:33] LABS: Hematocrit (blood only) 32.2 % (37.0-47.0); Hemoglobin 10.5 g/dl (12.0-16.0); Mean Corpuscular Hemoglobin 27.8 pg (25.0-34.0); Mean Corpuscular Hgb Conc 32.6 g/dL (32.0-36.0); Mean Corpuscular Volume 85.2 fL (80.0-100.0); Mean Platelet Volume 8.1 fL (9.4-12.4); Nucleated RBC # (auto) 0.02 K/uL (0.00-0.12); Nucleated RBC % (auto) 0.4 %; Platelet Count 300 K/uL (130-400); RDW Coefficient of Variation 19.3 % (11.5-14.5); RDW Standard Deviation 59.4 fL (36.4-46.3); Red Blood Count 3.78 M/uL (4.20-5.40); White Blood Count 4.68 K/ul (4.8-10.8)
--- NOTE | 2023-10-15 08:03 | Hospitalist Progress Note ---
Date of Service October 15, 2023 Assessment & Plan (1) Pancytopenia: (2) Complicated UTI (urinary tract infection): Plan 75 yo F with type 2 diabetes, CKD stage III, hyperlipidemia, chronic drug- induced interstitial lung disorders, asthma mild persistent, COPD, chronic right-sided heart failure, hypertension, history of CAD, history of CVA, mild aortic stenosis, paroxysmal atrial fibrillation, moderate protein calorie malnutrition, slow transit constipation, vitamin B-12 and thiamine deficiency, history of esophageal dysphagia, GERD, gout, osteoarthritis, primary open-angle glaucoma, polyneuropathy, rheumatoid arthritis involving multiple sites with positive rheumatoid factor, depression, history of C. difficile, history of COVID, history of fever of unknown origin admitted with abnormal labwork at rehab. Pt has had multiple admissions and re-admissions. Continuous decline. Palliative Care consult was placed for further recs after discussion with her . Pt and choosing to pursue course of rehab at this time. AMS Acute Metabolic Encephalopathy UTI Discussed with on admission, pt not at her baseline. Notes fever of 102 day of admission at [facility] rehab UA suggestive of infection, urine Cx with several organisms, repeat Ucultx positive - VRE - treated with dapto/ macrobid Chest XRAY with no acute changes CT chest with no acute findings in the chest Biofire negative Procal elevated at 2.31, lactate wnl Blood cx x2 with NGTD On Cefepime and empiric doxycycline initially Doxycycline, cefepime. switched cefepime to ertapenem, added daptomycin (10/03). ertapenem then stopped as ucultx posit.for vre repeat blood cultx - negat for 48 hrs. Fungal cultx - NGTD repeat Ucultx - VRE with lots of resistance but sensitive to Dapto and macrobid. Pt received dapto x 8 days, switched to po macrobid for 2 additional days. AMS - change in mental status, acute on 10/03/2023 AM, Stroke alert was called - CT head, CTA head and neck negat., MRI brain negative Neurology consulted - consider EEG, LP if mental status not improving. Has been improving. 10/04-10/06 - pt is awake, alert and answers simple questions, moves extremities, mental status overall improved 10/08- Pt more alert and interactive, palliative care consult- appreciate recs, would like rehab trial. 10/09-10/12 -stable, remains alert and oriented, interactive 10/13- pt was alert but not as talkative, noting that her room was cold and asking for blankets. present also felt room was cold. However UA order placed to rule out another UTI as pt completed macrobid therapy with last dose AM of 10/12. UA suggestive of recurrent infection with +nitrite. Started on po macrobid once more. Follow urine Cx. Urine cultx (10/13) positive for Klebsiella and GNB This is likely secondary d/t pt being incontinent. Imodium started and discussed in detail w/ RN at the bedside. Pancytopenia Pt with WBC 1.07K, Hgb 7.7, platelets 118K on admission Tick borne testing r/o- pt states she took a tick out off her cat about a month ago Biofire as above to rule out a viral suppression cause- negative Peripheral smear ordered, SPEP recommended Hematology consult- appreciate recs. - received iv iron x3 and neupogen x2 Empiric doxycycline for possible tick borne cause discontinued. Transfuse hgb as needed if <7, currently stable >8 10/04 case was discussed w/ hematology/ oncology - would recommend bone marrow biopsy prior to discharge 10/09- hematology consult placed once more for bone marrow biopsy given pt does not want to go the palliative route 10/10- Hematology NOT recommending bone marrow biopsy, appreciate recs. 10/12- stable, counts generally improving Hypomagnesemia Replete and monitor On daily supplements Hyponatremia Sodium 129 on admission Chronic Hx, Known to nephrology service Nephrology consult placed- appreciate recs -no fluid restriction -started on urea, continue -signed off and placed recs for discharge in chart on 10/13 Sodium currently stable NEPHRO D/C RECS -bmp weekly x 4 then every other week x 2; check mag every 2 wks x 3 >> all to be ordered by accepting facility and monitored by them -encourage po intake; pt may need to be followed more closely by RD at facility to ensure more mag, phos, protein and to evaluate whether she needs to be fed -d/c on urea 15 gm bid, po K 20 mEq daily -recommend hospital d/c appt in 4-6 wks w/ neph provider nearest her facility w/ BMP, mag to be ordered by neph nurses a week before appt and if previously mentioned sodiums have been <135 needs urine osms, serum osms, rd urine sodium ordered by neph nurse; ensure above labs available/ come w/ pt to appt Elevated trop Atrial fibrillation hs-Trop elevated at 25.3, downtrended to 23.2 EKG showed atrial fibrillation On metoprolol succinate 50mg BID, not on anticoagulation Doubt ACS Continue other home meds as ordered for now CODE STATUS: DNR/DNI after discussion with pt's DVT prophylaxis: Deferred in setting of thrombocytopenia/anemia Diet: HH/minced and moist Dispo: Acute rehab placement Admission and Anticipated Discharge Date Admission Date: September 29, 2023 Subjective Pt seen in follow up of AMS, UTI Currently laying in bed, in no acute distress Patient currently denies any fever chills chest pain shortness of breath abdominal pain. Says she has been eating some. Discussed in detail with RN possible ways to hopefully prevent any more UTIs. Review of Systems Review of Systems: All systems reviewed & are unremarkable except as noted in Subjective Physical Exam Physical Exam: General: elderly thin F, + chronically ill appearing, in NAD HEENT: NC/AT CV: RRR Resp: no increased effort of breathing Abdomen: Soft, nontender, + bowel sounds Extremities: No edema in lower extremities bilaterally. Psych: Appropriate mood and affect Neuro: weak, difficulty with movements Results & Data Results & Data Vital Signs (Past 12 Hours) Vital Signs Temp Pulse Resp BP Pulse Ox O2 Del Method 10/15/23 07:20 36.6 C 73 16 100/62 100 Room Air Laboratory Results 10/15/23 Range/Units 07:10 WBC 4.68 L (4.8-10.8) K/ul RBC 3.78 L (4.20-5.40) M/uL Hgb 10.5 L (12.0-16.0) g/dl Hct 32.2 L (37.0-47.0) % MCV 85.2 (80.0-100.0) fL MCH 27.8 (25.0-34.0) pg MCHC 32.6 (32.0-36.0) g/dL RDW Std Deviation 59.4 H (36.4-46.3) fL RDW Coeff of Xochitl 19.3 H (11.5-14.5) % Plt Count 300 (130-400) K/uL MPV 8.1 L (9.4-12.4) fL Absolute Nucleated RBC 0.02 (0.00-0.12) K/uL Nucleated RBC % (auto) 0.4 % Sodium 129 L (136-145) mmol/L Potassium 4.3 (3.5-5.1) mmol/L Chloride 92 L (98-107) mmol/L Carbon Dioxide 31 (21-32) mmol/L Anion Gap 6 (3-11) BUN 46 H (6-23) mg/dl Creatinine 0.84 (0.6-1.2) mg/dl Est Cr Clr Drug Dosing 44.7 ml/min Est GFR ( Amer) 78.2 ml/min Est GFR (Non-Af Amer) 67.5 ml/min BUN/Creatinine Ratio 54.8 H (10-20) Glucose 114 H (70-99(Fasting)) mg/dl Calcium 10.7 H (8.6-10.3) mg/dl Phosphorus 4.1 (2.5-4.9) mg/dl Magnesium 1.8 (1.7-2.4) mg/dl Medications Administered Current Inpatient Medications Acetaminophen (Acetaminophen 325 Mg Tab) 650 mg PO Q4 PRN PRN Reason: Fever Or Pain Stop: 10/29/23 21:30 Last Admin: 10/02/23 12:03 Dose: 650 mg Albuterol (Albuterol Hfa 8 Gm Inhaler) 2 puffs INH Q4 PRN PRN Reason: Shortness Of Breath Stop: 10/29/23 21:30 Albuterol (Albuterol 0.083% Nebu Soln 3 Ml Vial) 2.5 mg INH QIDR PRN; Protocol PRN Reason: Shortness Of Breath Or Wheezin Stop: 10/29/23 21:30 Artificial Tears (Artificial Tears) 1 drops OPB QID [facility] Stop: 11/01/23 16:59 Last Admin: 10/14/23 20:24 Dose: 1 drops Clopidogrel Bisulfate (Clopidogrel Bisulfate 75 Mg Tab) 75 mg PO QAM [facility] Stop: 10/30/23 08:59 Last Admin: 10/14/23 10:08 Dose: 75 mg Cyanocobalamin (Cyanocobalamin (B-12) 500 Mcg Tablet) 2,000 mcg PO MoWeFr@0900 [facility] Stop: 10/30/23 08:59 Last Admin: 10/14/23 10:31 Dose: 2,000 mcg Duloxetine HCl (Duloxetine Hcl 60 Mg Cap) 60 mg PO QAM [facility] Stop: 10/30/23 08:59 Last Admin: 10/14/23 10:15 Dose: 60 mg Fluticasone/Vilanterol (Fluticasone/Vilanterol 200/25mcg 14 Puffs/Inhaler) 1 puffs INH DAILY [facility] Stop: 10/30/23 08:59 Last Admin: 10/14/23 10:06 Dose: 1 puffs Folic Acid (Folic Acid 1 Mg Tab) 1 mg PO QAM [facility] Stop: 10/30/23 08:59 Last Admin: 10/14/23 10:32 Dose: 1 mg Guaifenesin (Guaifenesin 600 Mg Tabcr) 600 mg PO Q12 [facility] Stop: 10/29/23 21:44 Last Admin: 10/14/23 20:24 Dose: 600 mg Isosorbide Dinitrate (Isosorbide Dinitrate 10 Mg Tab) 10 mg PO BID@0700,1200 [facility] Stop: 10/30/23 06:59 Last Admin: 10/15/23 06:18 Dose: 10 mg Lactobacillus Acidophilus (Advanced Probiotic 1250 Mg Capsule) 1 cap PO BID [facility] Stop: 10/29/23 21:44 Last Admin: 10/14/23 20:24 Dose: 1 cap Latanoprost (Latanoprost 0.005% Op Soln 2.5 Ml Btl) 1 drops OPB HS [facility] Stop: 10/29/23 21:44 Last Admin: 10/14/23 20:22 Dose: 1 drops Loperamide HCl (Loperamide Hcl 2 Mg Cap) 2 mg PO Q4H PRN PRN Reason: Diarrhea Stop: 11/12/23 21:24 Magnesium Chloride (Magnesium Chloride W/Calcium 64mg Delayed Rel Tab) 64 mg PO BID [facility] Stop: 11/05/23 10:14 Last Admin: 10/14/23 20:23 Dose: 64 mg Metoprolol Succinate (Metoprolol Succ 50mg Ext Rel Tab) 50 mg PO BID [facility] Stop: 10/29/23 21:44 Last Admin: 10/14/23 20:23 Dose: 50 mg Miconazole Nitrate (Miconazole Nitrate Powder 85 Gm) 1 appln TOP BID [facility] Stop: 10/29/23 21:30 Last Admin: 10/14/23 20:24 Dose: 1 appln Montelukast Sodium (Montelukast Sodium 10 Mg Tablet) 10 mg PO QAM [facility] Stop: 10/30/23 08:59 Last Admin: 10/14/23 10:09 Dose: 10 mg Multivitamins (Multivitamin Tab) 1 tab PO QAM [facility] Stop: 10/30/23 08:59 Last Admin: 10/14/23 10:31 Dose: 1 tab Multivitamins/Minerals (Cerovite Adv Formula Tab) 1 tab PO QAM [facility] Stop: 10/30/23 08:59 Last Admin: 10/14/23 10:32 Dose: 1 tab Nitrofurantoin Macrocrystals (Nitrofurantoin Monohydrate 100 Mg Cap) 100 mg PO BID [facility] Stop: 10/23/23 20:59 Last Admin: 10/14/23 20:23 Dose: 100 mg Oxybutynin Chloride (Oxybutynin Chloride Xl 5 Mg Tabcr) 10 mg PO QAM [facility] Stop: 10/30/23 08:59 Last Admin: 10/14/23 10:09 Dose: 10 mg Pantoprazole Sodium (Pantoprazole 40 Mg Tab) 40 mg PO BID [facility] Stop: 10/29/23 21:44 Last Admin: 10/14/23 20:23 Dose: 40 mg Potassium Chloride (Potassium Chloride Pwd 20 Meq Pack) 20 meq PO DAILY [facility] Stop: 11/07/23 08:59 Last Admin: 10/14/23 10:06 Dose: 20 meq Prednisone (Prednisone 5 Mg Tab) 5 mg PO QAM [facility] Stop: 10/30/23 08:59 Last Admin: 10/14/23 10:09 Dose: 5 mg Rosuvastatin Calcium (Rosuvastatin Calcium 20 Mg Tab) 20 mg PO HS [facility] Stop: 10/29/23 21:44 Last Admin: 10/13/23 20:03 Dose: 20 mg Silver Sulfadiazine (Silver Sulfadiazine 1% Cr 50 Gm Jar) 1 appln TOP UD PRN PRN Reason: DRESSING CHANGES Stop: 10/29/23 21:30 Thiamine HCl (Thiamine Hcl 50 Mg Tablet) 50 mg PO QAM [facility] Stop: 10/30/23 08:59 Last Admin: 10/14/23 10:33 Dose: 50 mg Urea (Urea (Urea-Na) 15 Gm Pack) 15 gm PO DAILY [facility] Stop: 11/10/23 15:44 Last Admin: 10/14/23 10:04 Dose: 15 gm Vitamin D (Cholecalciferol 1,000 Units 25 Mcg Tab) [facility] [place]: 10/30/23 08:59 Last Admin: 10/14/23 10:30 Dose: 2,000 units
[2023-10-15 08:18] LABS: BUN Creatinine Ratio 54.8 (10-20); Calcium 10.7 mg/dl (8.6-10.3); Creatinine Clr Calc Pharmacy 44.7 ml/min; Est GFR (African American) 78.2 ml/min; Est GFR (Non-African American) 67.5 ml/min; Magnesium 1.8 mg/dl (1.7-2.4); Phosphorus 4.1 mg/dl (2.5-4.9); Potassium 4.3 mmol/L (3.5-5.1)
[2023-10-15] MEDS: CLOPIDOGREL BISULFATE 75 MG TAB PO SCH (08:18)
[2023-10-15] MEDS: UREA (UREA-NA) 15 GM PACK PO SCH (08:18)
[2023-10-15] MEDS: THIAMINE HCL 50 MG TABLET PO SCH (08:18)
[2023-10-15] MEDS: OXYBUTYNIN CHLORIDE XL 5 MG TABCR PO SCH (08:18)
[2023-10-15] MEDS: MULTIVITAMIN TAB PO SCH (08:19)
[2023-10-15] MEDS: PANTOprazole 40 MG TAB PO SCH ×2 (08:19→21:26)
[2023-10-15] MEDS: CHOLECALCIFEROL 25 MCG (1000 UNITS) TAB PO SCH (08:19)
[2023-10-15] MEDS: predniSONE 5 MG TAB PO SCH (08:19)
[2023-10-15] MEDS: ADVANCED PROBIOTIC 1250 MG CAPSULE PO SCH ×2 (08:19→21:26)
[2023-10-15] MEDS: FOLIC ACID 1 MG TAB PO SCH (08:19)
[2023-10-15] MEDS: DULoxetine HCL 60 MG CAP PO SCH (08:19)
[2023-10-15] MEDS: MONTELUKAST SODIUM 10 MG TABLET PO SCH (08:19)
[2023-10-15] MEDS: CEROVITE ADV FORMULA TAB PO SCH (08:19)
[2023-10-15] MEDS: FLUTICASONE/VILANTEROL 200/25MCG 14 PUFFS/INHALER INH SCH (08:20)
[2023-10-15] MEDS: NITROFURANTOIN MONOHYDRATE 100 MG CAP PO SCH ×2 (08:20→21:26)
[2023-10-15] MEDS: MAGNESIUM CHLORIDE W/CALCIUM 64MG DELAYED REL TAB PO SCH ×2 (08:20→21:26)
[2023-10-15] MEDS: POTASSIUM CHLORIDE PWD 20 MEQ PACK PO SCH (08:20)
[2023-10-15] MEDS: guaiFENesin 600 MG TABCR PO SCH ×2 (08:20→21:26)
[2023-10-15] MEDS: METOPROLOL SUCC 50MG EXT REL TAB PO SCH ×2 (08:20→21:26)
[2023-10-15] MEDS: ARTIFICIAL TEARS OPB SCH ×4 (08:21→21:26)
[2023-10-15] MEDS: MICONAZOLE NITRATE POWDER 85 GM TOP SCH ×2 (08:21→21:25)
[2023-10-15] MEDS: LATANOPROST 0.005% OP SOLN 2.5 ML BTL OPB SCH (21:26)
[2023-10-16] MEDS: ISOSORBIDE DINITRATE 10 MG TAB PO SCH ×2 (06:08→13:32)
[2023-10-16 07:11] LABS: Hematocrit (blood only) 30.4 % (37.0-47.0); Hemoglobin 10.1 g/dl (12.0-16.0); Mean Corpuscular Hemoglobin 28.4 pg (25.0-34.0); Mean Corpuscular Hgb Conc 33.2 g/dL (32.0-36.0); Mean Corpuscular Volume 85.4 fL (80.0-100.0); Mean Platelet Volume 8.3 fL (9.4-12.4); Platelet Count 286 K/uL (130-400); RDW Coefficient of Variation 19.2 % (11.5-14.5); RDW Standard Deviation 59.1 fL (36.4-46.3); Red Blood Count 3.56 M/uL (4.20-5.40); White Blood Count 5.13 K/ul (4.8-10.8)
[2023-10-16 07:47] LABS: Calcium 10.8 mg/dl (8.6-10.3); Creatinine Clr Calc Pharmacy 35.8 ml/min; Est GFR (African American) 59.7 ml/min; Est GFR (Non-African American) 51.5 ml/min; Magnesium 1.9 mg/dl (1.7-2.4); Phosphorus 3.8 mg/dl (2.5-4.9); Potassium 4.5 mmol/L (3.5-5.1)
--- NOTE | 2023-10-16 08:25 | Hospitalist Progress Note ---
Date of Service October 16, 2023 Assessment & Plan (1) Pancytopenia: (2) Complicated UTI (urinary tract infection): Plan 75 yo F with type 2 diabetes, CKD stage III, hyperlipidemia, chronic drug- induced interstitial lung disorders, asthma mild persistent, COPD, chronic right-sided heart failure, hypertension, history of CAD, history of CVA, mild aortic stenosis, paroxysmal atrial fibrillation, moderate protein calorie malnutrition, slow transit constipation, vitamin B-12 and thiamine deficiency, history of esophageal dysphagia, GERD, gout, osteoarthritis, primary open-angle glaucoma, polyneuropathy, rheumatoid arthritis involving multiple sites with positive rheumatoid factor, depression, history of C. difficile, history of COVID, history of fever of unknown origin admitted with abnormal labwork at rehab. Pt has had multiple admissions and re-admissions. Continuous decline. Palliative Care consult was placed for further recs after discussion with her . Pt and choosing to pursue course of rehab at this time. AMS Acute Metabolic Encephalopathy UTI Discussed with on admission, pt not at her baseline. Notes fever of 102 day of admission at [facility] rehab UA suggestive of infection, urine Cx with several organisms, repeat Ucultx positive - VRE - treated with dapto/ macrobid Chest XRAY with no acute changes CT chest with no acute findings in the chest Biofire negative Procal elevated at 2.31, lactate wnl Blood cx x2 with NGTD On Cefepime and empiric doxycycline initially Doxycycline, cefepime. switched cefepime to ertapenem, added daptomycin (10/03). ertapenem then stopped as ucultx posit.for vre repeat blood cultx - negat for 48 hrs. Fungal cultx - NGTD repeat Ucultx - VRE with lots of resistance but sensitive to Dapto and macrobid. Pt received dapto x 8 days, switched to po macrobid for 2 additional days. AMS - change in mental status, acute on 10/03/2023 AM, Stroke alert was called - CT head, CTA head and neck negat., MRI brain negative Neurology consulted - consider EEG, LP if mental status not improving. Has been improving. 10/04-10/06 - pt is awake, alert and answers simple questions, moves extremities, mental status overall improved 10/08- Pt more alert and interactive, palliative care consult- appreciate recs, would like rehab trial. 10/09-10/12 -stable, remains alert and oriented, interactive 10/13- pt was alert but not as talkative, noting that her room was cold and asking for blankets. present also felt room was cold. However UA order placed to rule out another UTI as pt completed macrobid therapy with last dose AM of 10/12. UA suggestive of recurrent infection with +nitrite. Started on po macrobid once more. Follow urine Cx. Urine cultx (10/13) positive for Klebsiella and Pseudomonas - macrobid switched to levaquin Recurrent UTIs likely secondary d/t pt being incontinent of stool. Imodium started and discussed in detail w/ RN at the bedside. Pancytopenia Pt with WBC 1.07K, Hgb 7.7, platelets 118K on admission Tick borne testing r/o- pt states she took a tick out off her cat about a month ago Biofire as above to rule out a viral suppression cause- negative Peripheral smear ordered, SPEP recommended Hematology consult- appreciate recs. - received iv iron x3 and neupogen x2 Empiric doxycycline for possible tick borne cause discontinued. Transfuse hgb as needed if <7, currently stable >8 10/04 case was discussed w/ hematology/ oncology - would recommend bone marrow biopsy prior to discharge 10/09- hematology consult placed once more for bone marrow biopsy given pt does not want to go the palliative route 10/10- Hematology NOT recommending bone marrow biopsy, appreciate recs. 10/12- stable, counts generally improving Hypomagnesemia Replete and monitor On daily supplements Hyponatremia Sodium 129 on admission Chronic Hx, Known to nephrology service Nephrology consult placed- appreciate recs -no fluid restriction -started on urea, continue -signed off and placed recs for discharge in chart on 10/13 Sodium currently stable NEPHRO D/C RECS -bmp weekly x 4 then every other week x 2; check mag every 2 wks x 3 >> all to be ordered by accepting facility and monitored by them -encourage po intake; pt may need to be followed more closely by RD at facility to ensure more mag, phos, protein and to evaluate whether she needs to be fed -d/c on urea 15 gm bid, po K 20 mEq daily -recommend hospital d/c appt in 4-6 wks w/ neph provider nearest her facility w/ BMP, mag to be ordered by neph nurses a week before appt and if previously mentioned sodiums have been <135 needs urine osms, serum osms, rd urine sodium ordered by neph nurse; ensure above labs available/ come w/ pt to appt Elevated trop Atrial fibrillation hs-Trop elevated at 25.3, downtrended to 23.2 EKG showed atrial fibrillation On metoprolol succinate 50mg BID, not on anticoagulation Doubt ACS Continue other home meds as ordered for now CODE STATUS: DNR/DNI after discussion with pt's DVT prophylaxis: Deferred in setting of thrombocytopenia/anemia Diet: HH/minced and moist Dispo: Acute rehab placement Admission and Anticipated Discharge Date Admission Date: September 29, 2023 Subjective Pt seen in follow up of AMS, UTI Currently laying in bed, in no acute distress Patient currently denies any fever chills chest pain shortness of breath abdominal pain. Says she has been eating some. Discussed in detail with RN possible ways to hopefully prevent any more UTIs. Review of Systems Review of Systems: All systems reviewed & are unremarkable except as noted in Subjective Physical Exam Physical Exam: General: elderly thin F, + chronically ill appearing, in NAD HEENT: NC/AT CV: RRR Resp: no increased effort of breathing Abdomen: Soft, nontender, + bowel sounds Extremities: No edema in lower extremities bilaterally. Psych: Appropriate mood and affect Neuro: weak, difficulty with movements Results & Data Results & Data Vital Signs (Past 12 Hours) Vital Signs Temp Pulse Resp BP BP Pulse Ox O2 Del Method 10/16/23 07:39 36.6 C 62 16 123/57 L 96 Room Air 10/15/23 21:20 Room Air 10/15/23 20:36 36.7 C 69 16 145/64 H 98 Room Air Laboratory Results 10/16/23 Range/Units 06:51 WBC 5.13 (4.8-10.8) K/ul RBC 3.56 L (4.20-5.40) M/uL Hgb 10.1 L (12.0-16.0) g/dl Hct 30.4 L (37.0-47.0) % MCV 85.4 (80.0-100.0) fL MCH 28.4 (25.0-34.0) pg MCHC 33.2 (32.0-36.0) g/dL RDW Std Deviation 59.1 H (36.4-46.3) fL RDW Coeff of Xochitl 19.2 H (11.5-14.5) % Plt Count 286 (130-400) K/uL MPV 8.3 L (9.4-12.4) fL Sodium 131 L (136-145) mmol/L Potassium 4.5 (3.5-5.1) mmol/L Chloride 96 L (98-107) mmol/L Carbon Dioxide 27 (21-32) mmol/L Anion Gap 8 (3-11) BUN 63 H (6-23) mg/dl Creatinine 1.05 (0.6-1.2) mg/dl Est Cr Clr Drug Dosing 35.8 ml/min Est GFR ( Amer) 59.7 ml/min Est GFR (Non-Af Amer) 51.5 ml/min BUN/Creatinine Ratio 60.0 H (10-20) Glucose 120 H (70-99(Fasting)) mg/dl Calcium 10.8 H (8.6-10.3) mg/dl Phosphorus 3.8 (2.5-4.9) mg/dl Magnesium 1.9 (1.7-2.4) mg/dl Medications Administered Current Inpatient Medications Acetaminophen (Acetaminophen 325 Mg Tab) 650 mg PO Q4 PRN PRN Reason: Fever Or Pain Stop: 10/29/23 21:30 Last Admin: 10/02/23 12:03 Dose: 650 mg Albuterol (Albuterol Hfa 8 Gm Inhaler) 2 puffs INH Q4 PRN PRN Reason: Shortness Of Breath Stop: 10/29/23 21:30 Albuterol (Albuterol 0.083% Nebu Soln 3 Ml Vial) 2.5 mg INH QIDR PRN; Protocol PRN Reason: Shortness Of Breath Or Wheezin Stop: 10/29/23 21:30 Artificial Tears (Artificial Tears) 1 drops OPB QID [facility] Stop: 11/01/23 16:59 Last Admin: 10/15/23 21:26 Dose: 1 drops Clopidogrel Bisulfate (Clopidogrel Bisulfate 75 Mg Tab) 75 mg PO QAM [facility] Stop: 10/30/23 08:59 Last Admin: 10/15/23 08:18 Dose: 75 mg Cyanocobalamin (Cyanocobalamin (B-12) 500 Mcg Tablet) 2,000 mcg PO MoWeFr@0900 [facility] Stop: 10/30/23 08:59 Last Admin: 10/14/23 10:31 Dose: 2,000 mcg Duloxetine HCl (Duloxetine Hcl 60 Mg Cap) 60 mg PO QAM [facility] Stop: 10/30/23 08:59 Last Admin: 10/15/23 08:19 Dose: 60 mg Fluticasone/Vilanterol (Fluticasone/Vilanterol 200/25mcg 14 Puffs/Inhaler) 1 puffs INH DAILY [facility] Stop: 10/30/23 08:59 Last Admin: 10/15/23 08:20 Dose: 1 puffs Folic Acid (Folic Acid 1 Mg Tab) 1 mg PO QAM [facility] Stop: 10/30/23 08:59 Last Admin: 10/15/23 08:19 Dose: 1 mg Guaifenesin (Guaifenesin 600 Mg Tabcr) 600 mg PO Q12 [facility] Stop: 10/29/23 21:44 Last Admin: 10/15/23 21:26 Dose: 600 mg Isosorbide Dinitrate (Isosorbide Dinitrate 10 Mg Tab) 10 mg PO BID@0700,1200 [facility] Stop: 10/30/23 06:59 Last Admin: 10/16/23 06:08 Dose: 10 mg Lactobacillus Acidophilus (Advanced Probiotic 1250 Mg Capsule) 1 cap PO BID [facility] Stop: 10/29/23 21:44 Last Admin: 10/15/23 21:26 Dose: 1 cap Latanoprost (Latanoprost 0.005% Op Soln 2.5 Ml Btl) 1 drops OPB HS [facility] Stop: 10/29/23 21:44 Last Admin: 10/15/23 21:26 Dose: 1 drops Levofloxacin (Levofloxacin 750 Mg Tab) 750 mg PO DAILY@1100 [facility]; Protocol Stop: 10/26/23 10:59 Loperamide HCl (Loperamide Hcl 2 Mg Cap) 2 mg PO Q4H PRN PRN Reason: Diarrhea Stop: 11/12/23 21:24 Magnesium Chloride (Magnesium Chloride W/Calcium 64mg Delayed Rel Tab) 64 mg PO BID [facility] Stop: 11/05/23 10:14 Last Admin: 10/15/23 21:26 Dose: 64 mg Metoprolol Succinate (Metoprolol Succ 50mg Ext Rel Tab) 50 mg PO BID [facility] Stop: 10/29/23 21:44 Last Admin: 10/15/23 21:26 Dose: 50 mg Miconazole Nitrate (Miconazole Nitrate Powder 85 Gm) 1 appln TOP BID [facility] Stop: 10/29/23 21:30 Last Admin: 10/15/23 21:25 Dose: 1 appln Montelukast Sodium (Montelukast Sodium 10 Mg Tablet) 10 mg PO QAM [facility] Stop: 10/30/23 08:59 Last Admin: 10/15/23 08:19 Dose: 10 mg Multivitamins (Multivitamin Tab) 1 tab PO QAM [facility] Stop: 10/30/23 08:59 Last Admin: 10/15/23 08:19 Dose: 1 tab Multivitamins/Minerals (Cerovite Adv Formula Tab) 1 tab PO QAM [facility] Stop: 10/30/23 08:59 Last Admin: 10/15/23 08:19 Dose: 1 tab Nitrofurantoin Macrocrystals (Nitrofurantoin Monohydrate 100 Mg Cap) 100 mg PO BID [facility] Stop: 10/23/23 20:59 Last Admin: 10/15/23 21:26 Dose: 100 mg Oxybutynin Chloride (Oxybutynin Chloride Xl 5 Mg Tabcr) [facility] Stop: 10/30/23 08:59 Last Admin: 10/15/23 08:18 Dose: 10 mg Pantoprazole Sodium (Pantoprazole 40 Mg Tab) 40 mg PO BID [facility] Stop: 10/29/23 21:44 Last Admin: 10/15/23 21:26 Dose: 40 mg Potassium Chloride (Potassium Chloride Pwd 20 Meq Pack) 20 meq PO DAILY [facility] Stop: 11/07/23 08:59 Last Admin: 10/15/23 08:20 Dose: 20 meq Prednisone (Prednisone 5 Mg Tab) 5 mg PO QAM [facility] Stop: 10/30/23 08:59 Last Admin: 10/15/23 08:19 Dose: 5 mg Rosuvastatin Calcium (Rosuvastatin Calcium 20 Mg Tab) 20 mg PO HS [facility] Stop: 10/29/23 21:44 Last Admin: 10/13/23 20:03 Dose: 20 mg Silver Sulfadiazine (Silver Sulfadiazine 1% Cr 50 Gm Jar) 1 appln TOP UD PRN PRN Reason: DRESSING CHANGES Stop: 10/29/23 21:30 Thiamine HCl (Thiamine Hcl 50 Mg Tablet) [facility] Stop: 10/30/23 08:59 Last Admin: 10/15/23 08:18 Dose: 50 mg Urea (Urea (Urea-Na) 15 Gm Pack) 15 gm PO DAILY [facility] Stop: 11/10/23 15:44 Last Admin: 10/15/23 08:18 Dose: 15 gm Vitamin D (Cholecalciferol 25 Mcg (1000 Units) Tab) [facility] Stop: 11/15/23 08:59
[2023-10-16] MEDS ORDERED: CHOLECALCIFEROL 25 MCG (1000 UNITS) TAB PO SCH (09:00)
[2023-10-16] MEDS ORDERED: levoFLOXacin 750 MG TAB PO SCH (09:00)
[2023-10-16] MEDS: ARTIFICIAL TEARS OPB SCH ×2 (09:09→13:32)
[2023-10-16] MEDS: guaiFENesin 600 MG TABCR PO SCH (09:33)
[2023-10-16] MEDS: CYANOCOBALAMIN (B-12) 500 MCG TABLET PO SCH (09:33)
[2023-10-16] MEDS: FOLIC ACID 1 MG TAB PO SCH (09:33)
[2023-10-16] MEDS: UREA (UREA-NA) 15 GM PACK PO SCH (09:33)
[2023-10-16] MEDS: CLOPIDOGREL BISULFATE 75 MG TAB PO SCH (09:33)
[2023-10-16] MEDS: DULoxetine HCL 60 MG CAP PO SCH (09:33)
[2023-10-16] MEDS: METOPROLOL SUCC 50MG EXT REL TAB PO SCH (09:34)
[2023-10-16] MEDS: ADVANCED PROBIOTIC 1250 MG CAPSULE PO SCH (09:34)
[2023-10-16] MEDS: MAGNESIUM CHLORIDE W/CALCIUM 64MG DELAYED REL TAB PO SCH (09:34)
[2023-10-16] MEDS: MONTELUKAST SODIUM 10 MG TABLET PO SCH (09:34)
[2023-10-16] MEDS: OXYBUTYNIN CHLORIDE XL 5 MG TABCR PO SCH (09:35)
[2023-10-16] MEDS: MULTIVITAMIN TAB PO SCH (09:35)
[2023-10-16] MEDS: PANTOprazole 40 MG TAB PO SCH (09:35)
[2023-10-16] MEDS: MICONAZOLE NITRATE POWDER 85 GM TOP SCH (09:35)
[2023-10-16] MEDS: predniSONE 5 MG TAB PO SCH (09:35)
[2023-10-16] MEDS: CEROVITE ADV FORMULA TAB PO SCH (09:35)
[2023-10-16] MEDS: POTASSIUM CHLORIDE PWD 20 MEQ PACK PO SCH (09:35)
[2023-10-16] MEDS: FLUTICASONE/VILANTEROL 200/25MCG 14 PUFFS/INHALER INH SCH (09:36)
[2023-10-16] MEDS: THIAMINE HCL 50 MG TABLET PO SCH (09:36)
--- NOTE | 2023-10-16 13:06 | Discharge Summary ---
Date of Service October 16, 2023 Admission HPI Per Admitting Provider History obtained from pt's States that pt was at [facility] and they were concerned that despite intense PT, pt was not getting better. States that he felt her head while he was there and it felt like she had a fever. So he had her temperature measured by nursing there who noted it was 102. Contacted physician there who did further testing and labwork and advised she present to the ED for further evaluation based on those labs. States at baseline that she is confused, she occasionally calls out for "shravan" who is her mother and has been for 20+ years. Pt AAOx1, states that she feels very tired. Admission Exam Per Admitting Provider General: Alert, orientedx1. No acute distress Psych: Appropriate mood and affect Neuro: difficulty with movements in the bed HEENT: NC/AT CV: Irregular rate and rhythm Resp: no increased effort of breathing Abdomen: Soft Extremities: edema in lower extremities bilaterally. Principal Diagnosis Pancytopenia Altered mental status UTI Discharge Exam General: elderly thin F, + chronically ill appearing, in NAD HEENT: NC/AT CV: RRR Resp: no increased effort of breathing Abdomen: Soft, nontender, + bowel sounds Extremities: No edema in lower extremities bilaterally. Psych: Appropriate mood and affect Neuro: weak, difficulty with movements Discharge Data Allergies Allergy/AdvReac Type Severity Reaction Status Date / Time Influenza Virus Vaccines Allergy Severe FLOWN TO Verified 09/05/23 20:43 [facility]. ciprofloxacin Allergy Intermediate RASH/BLEEDI Verified 09/05/23 20:43 NG methotrexate Allergy Intermediate RASH/PNEUMO Verified 09/05/23 20:43 NITIS Penicillins Allergy Intermediate hives Verified 09/05/23 20:43 ranitidine Allergy Intermediate rash Verified 09/05/23 20:43 Consultations 09/29/23 18:24 ED Decision to Admit Stat 09/29/23 21:31 Consult Hematology Routine Consult Nephrology Routine 10/03/23 10:08 Consult Cardiology Routine 10/03/23 10:10 Consult Neurology Routine 10/07/23 10:54 Consult Palliative Care Routine 10/09/23 07:51 Consult Hematology Routine Ordered Studies 09/29/23 21:31 CT chest diagnostic wo con Urgent 10/03/23 09:09 CT head/brain wo con Stat 10/03/23 09:12 CTA head w con [CT angio head w con] Stat CTA neck with con [CT angio neck with con] Stat 10/03/23 10:03 MR brain wo con Routine Hospital Course (1) Pancytopenia: (2) Complicated UTI (urinary tract infection): Plan 75 yo F with type 2 diabetes, CKD stage III, hyperlipidemia, chronic drug- induced interstitial lung disorders, asthma mild persistent, COPD, chronic right-sided heart failure, hypertension, history of CAD, history of CVA, mild aortic stenosis, paroxysmal atrial fibrillation, moderate protein calorie malnutrition, slow transit constipation, vitamin B-12 and thiamine deficiency, history of esophageal dysphagia, GERD, gout, osteoarthritis, primary open-angle glaucoma, polyneuropathy, rheumatoid arthritis involving multiple sites with positive rheumatoid factor, depression, history of C. difficile, history of COVID, history of fever of unknown origin admitted with abnormal labwork at rehab. Pt has had multiple admissions and re-admissions. Continuous decline. Palliative Care consult was placed for further recs after discussion with her . Pt and choosing to pursue course of rehab at this time. AMS Acute Metabolic Encephalopathy UTI Discussed with on admission, pt not at her baseline. Notes fever of 102 day of admission at [facility] rehab UA suggestive of infection, urine Cx with several organisms, repeat Ucultx positive - VRE - treated with dapto/ macrobid Chest XRAY with no acute changes CT chest with no acute findings in the chest Biofire negative Procal elevated at 2.31, lactate wnl Blood cx x2 with NGTD On Cefepime and empiric doxycycline initially Doxycycline, cefepime. switched cefepime to ertapenem, added daptomycin (10/03). ertapenem then stopped as ucultx posit.for vre repeat blood cultx - negat for 48 hrs. Fungal cultx - NGTD repeat Ucultx - VRE with lots of resistance but sensitive to Dapto and macrobid. Pt received dapto x 8 days, switched to po macrobid for 2 additional days. AMS - change in mental status, acute on 10/03/2023 AM, Stroke alert was called - CT head, CTA head and neck negat., MRI brain negative Neurology consulted - consider EEG, LP if mental status not improving. Has been improving. 10/04-10/06 - pt is awake, alert and answers simple questions, moves extremities, mental status overall improved 10/08- Pt more alert and interactive, palliative care consult- appreciate recs, would like rehab trial. 10/09-10/12 -stable, remains alert and oriented, interactive 10/13- pt was alert but not as talkative, noting that her room was cold and asking for blankets. present also felt room was cold. However UA order placed to rule out another UTI as pt completed macrobid therapy with last dose AM of 10/12. UA suggestive of recurrent infection with +nitrite. Started on po macrobid once more. Follow urine Cx. Urine cultx (10/13) positive for Klebsiella and Pseudomonas - macrobid switched to levaquin- cont. for 6 days Recurrent UTIs likely secondary d/t pt being incontinent of stool. Imodium started and discussed in detail w/ RN at the bedside. Pancytopenia Pt with WBC 1.07K, Hgb 7.7, platelets 118K on admission Tick borne testing r/o- pt states she took a tick out off her cat about a month ago Biofire as above to rule out a viral suppression cause- negative Peripheral smear ordered, SPEP recommended Hematology consult- appreciate recs. - received iv iron x3 and neupogen x2 Empiric doxycycline for possible tick borne cause discontinued. Transfuse hgb as needed if <7, currently stable >8 10/04 case was discussed w/ hematology/ oncology - would recommend bone marrow biopsy prior to discharge 10/09- hematology consult placed once more for bone marrow biopsy given pt does not want to go the palliative route 10/10- Hematology NOT recommending bone marrow biopsy, appreciate recs. 10/12- stable, counts generally improving Hypomagnesemia Replete and monitor On daily supplements Hyponatremia Sodium 129 on admission Chronic Hx, Known to nephrology service Nephrology consult placed- appreciate recs -no fluid restriction -started on urea, continue -signed off and placed recs for discharge in chart on 10/13 Sodium currently stable NEPHRO D/C RECS -bmp weekly x 4 then every other week x 2; check mag every 2 wks x 3 >> all to be ordered by accepting facility and monitored by them -encourage po intake; pt may need to be followed more closely by RD at facility to ensure more mag, phos, protein and to evaluate whether she needs to be fed -d/c on urea and po K 20 mEq daily -recommend hospital d/c appt in 4-6 wks w/ neph provider nearest her facility w/ BMP, mag to be ordered by neph nurses a week before appt and if previously mentioned sodiums have been <135 needs urine osms, serum osms, rd urine sodium ordered by neph nurse; ensure above labs available/ come w/ pt to appt Elevated trop Atrial fibrillation hs-Trop elevated at 25.3, downtrended to 23.2 EKG showed atrial fibrillation On metoprolol succinate 50mg BID, not on anticoagulation Doubt ACS Continue other home meds as ordered for now CODE STATUS: DNR/DNI Diet: HH/minced and moist Dispo: Acute rehab placement/ snf Total Time Total Time Spent Total Time Spent (In Minutes): 40 Discharge Plan Discharge Items Patient Disposition: Transfer Intermediate Fac Reason For Visit: PANCYTOPENIA Discharge Diagnosis: Pancytopenia Altered mental status UTI Activity: Per Instructions section Non-emergency contact: Primary Care Provider Call non-emergency contact if: you have any medication questions and your symptoms worsen Follow-up/Referrals: Leni Moyer DO [Primary Care Provider] - Diet: Regular Diet Comment: minced and moist Addtl Attending Provider Instructions: Follow up with primary care physician within 1 week. Finish antibiotic treatment as prescribed. Take precautions to prevent recurrent UTIs. Have blood work done - to check your electrolytes - BMP, Mag - in next 3-4 days. Pending Studies at Discharge: No Stand-Alone Forms: My [facility] Skilled Items Patient informed of condition?: Yes DNR: Yes Discharge Level of Care: Skilled Communicable Disease: No Discharge Prognosis: Stable Lines: None Urinary Catheter: No Medications and DC Order Prescriptions: New levofloxacin 750 mg Tablet 750 mg PO Q48H 6 Days Qty: 3 0RF Mag 64 64 mg Tablet,Delayed Release (Dr/Ec) 64 mg PO BID Qty: 14 0RF potassium chloride 20 mEq Packet 20 meq PO DAILY Qty: 30 0RF Ure-Na 15 gram Powder In Packet 15 g PO DAILY Qty: 8 0RF loperamide 2 mg Capsule 2 mg PO Q4H PRN (Reason: loose stool) Qty: 14 0RF Continued latanoprost 0.005 % drops 1 drp OPB HS cyanocobalamin (vitamin B-12) [Vitamin B-12] 1,000 mcg Tablet 2,000 mcg PO 3XWK Rx Instructions: mon, wed, fri albuterol sulfate [ProAir HFA] 90 mcg/actuation Hfa Aerosol Inhaler 2 puff INHALATION Q4 PRN (Reason: Shortness Of Breath) Ocuvite with Lutein 1,000 unit-200 mg-60 unit-2 mg Tablet 1 tab PO QAM prednisone 5 mg tablet 5 mg PO QAM folic acid 1 mg tablet 1 mg PO QAM Centrum Silver Women 8 mg iron-400 mcg-300 mcg Tablet 1 tab PO QAM montelukast 10 mg Tablet 10 mg PO QAM thiamine HCl (vitamin B1) 100 mg tablet 50 mg PO QAM acetaminophen 325 mg Tablet 650 mg PO Q4 MDD 3g PRN (Reason: Fever Or Pain) fluticasone furoate-vilanterol [Breo Ellipta] 200-25 mcg/dose blister with device 1 inh INHALATION DAILY clopidogrel 75 mg Tablet 75 mg PO QAM Qty: 30 0RF albuterol sulfate 2.5 mg /3 mL (0.083 %) Solution For Nebulization 2.5 mg INHALATION QID PRN (Reason: Shortness Of Breath Or Wheezing) Culturelle Kids Probiotics 5 billion cell Powder In Packet 5 cell PO BID cholecalciferol (vitamin D3) [Vitamin D3] 50 mcg (2,000 unit) Capsule 50 mcg PO QAM solifenacin [Vesicare] 10 mg tablet 10 mg PO QAM isosorbide dinitrate 10 mg Tablet 10 mg PO BID Qty: 60 0RF guaifenesin [Mucinex] 600 mg Tablet Extended Release 12hr 600 mg PO Q12 Qty: 10 0RF duloxetine 60 mg Capsule,Delayed Release(Dr/Ec) 60 mg PO QAM metoprolol succinate 50 mg tablet extended release 24 hr 50 mg PO AMHS pantoprazole 40 mg tablet,delayed release (DR/EC) 40 mg PO AMHS rosuvastatin 20 mg tablet 20 mg PO HS miconazole nitrate [Remedy Antifungal] 2 % Powder 1 applic TOPICAL BID Rx Instructions: apply to under breasts and abdominal folds silver sulfadiazine [Silvadene] 1 % Cream 1 applic TOPICAL [id number] Rx Instructions: cleanse sacral wound wit NSS or wound bus cleaner,pat dry,apply silvadene to wound and cover with silicone bordered dressing...change as needed for soilage Held hydroxychloroquine 200 mg tablet 200 mg PO .ON HOLD Hold Instructions: Resume on 10/23/23. Discuss with your physician about when to resume this med Rx Instructions: when resumed ordered 200mg Q HS Discharge Orders: Discharge Order (Routine); Ordered 10/16/23 Ordered By: Francisco J Phillip Admission Data Admit Date/Time: 09/29/23 18:55 Attending Provider: Francisco J Phillip Admit Provider: Malika Holm Primary Care Provider: Leni Moyer Other Providers: Hayley Hamlin; Fausto Serrano; Hayley Rivas at [place]; [facility]; Malika Holm; Etienne Bryan; Shanelle Be
--- NOTE | 2023-10-20 14:46 | Coding Query ---
To promote full compliance with coding requirements relating to patient care, provider participation is requested in all cases of patient support tech uncertainty. Please assist us with the question(s) below: Coding Question(s): The diagnosis(es) below was documented in the earlier chart, then subsequently fell off all further documentation. Please indicate if it is still a possible diagnosis or ruled out. Physician's Response(s): SEPSIS (documented on the ER, and the 09/30 Hematology Oncology Consultation, and 10/08 Palliative Consultation, then no further documentation) ( ) Diagnosed and POA. Please specify further below, the most likely cause of Sepsis, in your clinical opinion: ( x ) UTI ( ) Other: Please Specify ( ) Unknown ( ) Diagnosed and not POA. Please specify further below, the most likely cause of Sepsis, in your clinical opinion: ( ) UTI ( ) Other: Please Specify ( ) Unknown ( ) Ruled out ( ) Other (please specify) SEVERE MALNUTRITION (documented on the 08/10 Hematology Oncology Progress Note) ( x ) Diagnosed and POA ( ) Diagnosed and not POA ( ) Ruled out ( ) Other (please specify) MTDD
== END 2023-10-16 14:25 | DRG 808 ==
LOC: ED 15:14 → SUATTDRO 18:55 → EDINP 18:55 → 2N 21:33 → 2W 10-03 06:03 → 2S 10-03 11:23 → UNDODISIN 10-10 10:52 → 3W 10-11 20:34

== ENCOUNTER 2023-12-14 12:36 | Inpatient (IN) ==
[2023-12-14] MEDS: SODIUM CHLORIDE 0.9% 1,000 ML IV ONE (13:07)
[2023-12-14 13:16] LABS: Base Excess VBG 5.1 mEq/L; HCO3 VBG 32 mmol/L; Oxygen Saturation VBG 71.8 %; PCO2 VBG 52 mmHg (38-50); PO2 VBG 43 mmHg; pH VBG 7.39 (7.36-7.41)
[2023-12-14 13:24] LABS: Basophils # (auto) 0.02 K/uL (0.00-0.20); Basophils % (auto) 0.3 %; Hematocrit (blood only) 46.4 % (37.0-47.0); Hemoglobin 14.7 g/dl (12.0-16.0); Immature Granulocytes # (auto) 0.04 K/uL (0.01-0.20); Immature Granulocytes % (auto) 0.6 %; Lymphocytes % (auto) 19.4 %; Mean Corpuscular Hemoglobin 27.1 pg (25.0-34.0); Mean Corpuscular Hgb Conc 31.7 g/dL (32.0-36.0); Mean Corpuscular Volume 85.5 fL (80.0-100.0); Mean Platelet Volume 9.2 fL (9.4-12.4); Monocytes # (auto) 0.91 K/uL (0.11-0.59); Monocytes % (auto) 12.6 %; Neutrophils # (auto) 4.84 K/uL (1.40-6.50); Neutrophils % (auto) 67.1 %; Platelet Count 221 K/uL (130-400); RDW Coefficient of Variation 17.5 % (11.5-14.5); RDW Standard Deviation 52.2 fL (36.4-46.3); Red Blood Count 5.43 M/uL (4.20-5.40); White Blood Count 7.21 K/ul (4.8-10.8)
[2023-12-14 13:34] LABS: Appearance Urine Clear (Clear); Bacteria Urine Automated Negative (Negative); Bilirubin Urine Negative (Negative); Blood Urine Negative (Negative); Color Urine Yellow; Epithelial Cell Urine Auto >30 /lpf (0-5); Glucose Urine UA Negative (Negative); Ketones Urine Negative (Negative); Leukocyte Esterase Urine Trace (Negative); Nitrite Urine Negative (Negative); Protein Urine 1+ (Negative); RBC Urine Automated 0-4 /hpf (0-4); Specific Gravity Urine 1.018 (1.000-1.030); Urobilinogen Urine Negative (Negative); pH Urine 7.5 (4.5-7.5)
[2023-12-14] MEDS: DAPTOmycin 300 MG in SYRINGE 0 ML IV ONE (13:54)
[2023-12-14] MEDS: CEFEPIME 2,000 MG/20 ML VIAL IV STA (13:56)
[2023-12-14 14:04] LABS: Alanine Aminotransferase 31 U/L (7-52); Alkaline Phosphatase 162 U/L (34-104); BUN Creatinine Ratio 59.6 (10-20); Bilirubin,Total 0.6 mg/dl (0.2-1.0); Blood Urea Nitrogen 90 mg/dl (6-23); Calcium 13.1 mg/dl (8.6-10.3); Carbon Dioxide 27 mmol/L (21-32); Chloride 105 mmol/L (98-107); Est GFR (African American) 38.5 ml/min; Est GFR (Non-African American) 33.2 ml/min; Globulin 4.2 gm/dl (2.5-4.0); Glucose 234 mg/dl (70-99(Fasting)); Thyroid Stimulating Hormone 3.439 uIu/ml (0.300-4.500); Total Protein 8.2 gm/dl (6.0-8.3)
--- NOTE | 2023-12-14 14:05 | CT Scan Report ---
CT head/brain wo con CLINICAL HISTORY: 78 years-old Female with ams. Acutely altered mental status TECHNIQUE: Multiple axial CT images of the head were obtained without contrast. A dose lowering tech nique was utilized adhering to the principles of ALARA. COMPARISON: 10/03/2023 FINDINGS: No acute intracranial hemorrhage, midline shift, intracranial mass, acute territorial ischemia or abn ormal extra-axial collection. Involutional changes with chronic microvascular ischemic disease. Uncha nged ventriculomegaly, likely on an ex vacuo basis. The calvarium is intact. Prior bilateral lens repair. Submucosal thickening with small air-fluid leve l within the left maxillary sinus. IMPRESSION: No acute intracranial abnormality. ACT 112: Negative or not required by law. The above report was generated using voice recognition software. It may contain grammatical, syntax o r spelling errors. Electronically signed by: Brant Mccoy M.D. 12/14/2023 2:03 PM
--- NOTE | 2023-12-14 14:11 | Emergency Department Note ---
Impression & Plan AMS (altered mental status), Hypercalcemia, Elevated troponin, Atrial flutter with rapid ventricular response, Acute dehydration ED Provider Note Provider: Solomon Connelly MD DATE OF SERVICE: 12/14/2023 CHIEF COMPLAINT: Altered mental status HISTORY OF PRESENT ILLNESS: Patient is a 78-year-old female past medical history of sepsis, UTI, heart failure, A-fib, stroke, diabetes, and COPD among others presenting here via ambulance from [facility]. Currently there after hospitalization beginning of this year for she was seen here for sepsis. Patient herself was unresponsive for EMS and brought here for evaluation. Evidently recently diagnosed with a UTI and has taken 2 doses of Bactrim there. They noted her calcium be somewhat high. Patient is unable to provide any history here but does moan and withdraw to pain. Patient's later arrived with additional history. Decline over the past week but minimally responsive today which is new and not normally on oxygen. Desatting on room air. Outpatient blood work concerning for elevated calcium. No reported pain or falls. PAST MEDICAL HISTORY: As noted above MEDICATIONS: Reviewed medication list SOCIAL HISTORY: PHYSICAL EXAM: GENERAL: opens her eyes to painful stimuli. Head: normocephalic and atraumatic EYES: No injection, discharge or icterus. PERRL, EOMI. NECK: Trachea midline. Supple. ENT: Mucous membranes pink and moist. LUNGS: Airway patent. No retractions. Breath sounds diminished HEART: Tachycardic rate and rhythm. No chest wall tenderness ABDOMEN: Soft and non-tender, without guarding or rebound. SKIN: Acyanotic, warm, dry, without rashes EXTREMITIES: Without swelling, tenderness or deformity NEUROLOGICAL: Withdraws to pain in all 4 extremities. Nonverbal. Spontaneously moving in the bed. EK bpm what appears to be a flutter. Incomplete right bundle branch block is noted with some T wave inversions noted but no clear acute ST segment elevation. QTc 442. CONTINUOUS CARDIAC MONITORING: was ordered and showed a heart rate of 140s-150s bpm in what appears to be atrial flutter later afib 90s-120s Patient's laboratory studies and imaging reviewed. Differential includes Infection, dehydration, metabolic abnormality, hypo/hyperglycemia, electrolyte disturbance, anemia, hypoxia, cardiac sources, intracerebral event, toxicologic, neurologic, as well as other pathologies. IMPRESSION/MEDICAL DECISION MAKING: Protecting airway but is requiring oxygen supplementation. Not answering questions. Change in mental status according to . Sent for CT of the head. CT abdomen pelvis to be obtained as well as a chest x-ray. Recent urine culture from last week reviewed in the system positive for Proteus. Covered broad-spectrum antibiotics. Tachycardic upon arrival and given some IV fluids. Will help delusionally with hypercalcemia. Lactate elevated. Troponin elevated. Likely more demand than true ACS. Does not seem that focal in neurological deficit is generally altered and weak. CT of the head without acute findings per radiology. states this is similar to how she was when she was here last time with a UTI and sepsis. Patient hypertensive here. No leukocytosis or anemia. Slightly worsened renal function but appears to be chronic recently for her. Urinalysis appears to be clearing as far as signs of infection at this time. Ordered 1.75 L of fluid for hydration. Will start a diltiazem drip to see if can affect some rate control what appears to be a flutter. Chest x-ray without signs of fluid overload or jordan pneumonia per radiology. Respiratory viral panel negative. Hypercalcemia may be driving this and question if she is experiencing some dehydration. Colon catheter placed. CT abdomen pelvis completed to exclude obstructive findings. Question liver abnormality will need further workup in a nonemergent nature. Patient will need to come into the hospital. On reassessment and updated patient at bedside patient is already more responsive and now talking. Believe dehydration and hypercalcemia primary etiology of her altered mental status today. Heart rate is improving on the dill drip and now appears to be A-fib. Troponin is flat on recheck not rising. Lactate mildly improved after some fluid but is again significantly hypertensive here on blood pressure. Procalcitonin minimally elevated with a negative respiratory viral panel. Again has been covered broadly with antibiotics but believe this is likely a more secondary cause of her encephalopathy today. Weaning oxygen as able and on minimal nasal cannula oxygen now. DIAGNOSIS: Altered mental status, elevated troponin, hypercalcemia, atrial flutter with rapid ventricular response, QT DISPOSITION: Hospitalist will evaluate Patient was agreeable with this plan. Critical Care I have personally spent 49 minutes of critical care time in the direct management of this patient. This includes bedside care, interpretation of diagnostic studies, and testing, discussion with consultants, patient, and family members, and other required patient management activities. These 49 minutes is in excess of all separately billable procedures. Past Med/Surg History Medical History Wrist fracture, left History of stroke Thrush, oral Hyponatremia Nontraumatic rectus hematoma NSTEMI (non-ST elevated myocardial infarction) UTI (urinary tract infection) Immunosuppressed status DVT prophylaxis CKD (chronic kidney disease), stage III Acute hyponatremia Abnormal ECG Elevated troponin Syncope NSTEMI (non-ST elevated myocardial infarction) Visual hallucinations Hyponatremia RSV infection Recurrent Clostridium difficile diarrhea Chronic steroid use prednisone daily Gout H/O interstitial lung disease "drug induced- methotrexate " Osteoarthritis Glaucoma Peripheral neuropathy Dyslipidemia Rheumatoid arthritis "on chronic steroids" COPD (chronic obstructive pulmonary disease) inhalers prn Depression CKD (chronic kidney disease), stage III Gastroparesis DM type 2 (diabetes mellitus, type 2) GERD (gastroesophageal reflux disease) Migraines DJD of right shoulder NSTEMI (non-ST elevated myocardial infarction) (08/06/13) Asthma inhalers prn HTN (hypertension) Heart disease Surgical History History of tooth extraction all top teeth History of esophagogastroduodenoscopy (EGD) H/O cardiac catheterization "cath 07/2013- single vessel CAD involving apical segment LAD, medical management indicated" S/P total knee arthroplasty "left knee" History of hysterectomy H/O colonoscopy S/P rotator cuff repair "right shoulder" S/P removal of ovarian cyst Family History Father Family history of diabetes mellitus Mother Heart disease Hypertension Other No family history of adverse response to anesthesia Social History Smoking Status: Unknown if ever smoked Second Hand Exposure: No; Do You Dip or Chew Tobacco: No; Tobacco Cessation Education Requested by Patient: No Hx Alcohol Use: No Hx Substance Use: No Preferred Language: Georgian Communication Ability: Effective Cyber Security Specialist Required: No Beliefs That Will Affect Care: None marital status: Current Living Situation: Rehab current occupational status: retired current occupation: Former [employer] Other Information That Helps Us Care for You: No Feels Safe at Home: Yes Safety Concerns: Feels Safe At This Time Assistive Devices: Denture - Upper, Denture - Lower and Oxygen - Continuous Allergies Allergies Allergy/AdvReac Type Severity Reaction Status Date / Time Influenza Virus Vaccines Allergy Severe FLOWN TO Verified 12/14/23 14:56 [facility]. ciprofloxacin Allergy Intermediate RASH/BLEEDI Verified 12/14/23 14:56 NG methotrexate Allergy Intermediate RASH/PNEUMO Verified 12/14/23 14:56 NITIS Penicillins Allergy Intermediate hives Verified 12/14/23 14:56 ranitidine Allergy Intermediate rash Verified 12/14/23 14:56 Home Meds Home Medications Medication Instructions Recorded Confirmed folic acid 1 mg tablet 1 mg PO HS 07/20/18 12/14/23 prednisone 5 mg tablet 5 mg PO QAM 07/20/18 12/14/23 albuterol sulfate 90 mcg/actuation 2 puff inhalation Q4 PRN Shortness 03/07/19 12/14/23 aerosol inhaler (ProAir HFA) Of Breath cyanocobalamin (vitamin B-12) 2,000 mcg PO [id number] 03/07/19 12/14/23 1,000 mcg tablet (Vitamin B-12) vit A 300 mcg-C 200 mg-E 27 1 tab PO HS 03/07/19 12/14/23 mg-lutein 2 mg and minerals tablet (Ocuvite with Lutein) [id number] 8 mg-folic 400 1 tab PO HS 11/12/19 12/14/23 mcg-K 50 mcg-lutein 300 mcg tablet (Centrum Silver Women) montelukast 10 mg tablet 10 mg PO QAM 11/15/20 12/14/23 latanoprost 0.005 % eye drops 1 drp OPB HS 01/03/21 12/14/23 acetaminophen 325 mg tablet 650 mg PO Q6H PRN Fever Or Pain 03/21/22 12/14/23 fluticasone furoate 200 1 inh inhalation DAILY 03/21/22 12/14/23 mcg-vilanterol 25 mcg/dose inhalation powder (Breo Ellipta) thiamine HCl (vitamin B1) 100 mg 50 mg PO HS 03/21/22 12/14/23 tablet Lactobacillus rhamnosus GG 5 5 cell PO BIDM 08/06/22 12/14/23 billion cell oral powder packet (Culturee [employer] Onlines Probiotics) albuterol sulfate 2.5 mg/3 mL 2.5 mg inhalation QID PRN 08/06/22 12/14/23 (0.083 %) solution for nebulization Shortness Of Breath Or Wheezing duloxetine 60 mg capsule,delayed 60 mg PO QAM 09/29/23 12/14/23 release metoprolol succinate 50 mg 50 mg PO AMHS 09/29/23 12/14/23 tablet,extended release 24 hr pantoprazole 40 mg tablet,delayed 40 mg PO AMHS 09/29/23 12/14/23 release rosuvastatin 20 mg tablet 20 mg PO HS 09/29/23 12/14/23 silver sulfadiazine 1 % topical 1 applic topical [id number] SACRAL 09/29/23 12/14/23 cream (Silvadene) WOUND clopidogrel 75 mg tablet 75 mg PO HS 12/14/23 12/14/23 insulin glargine 100 unit/mL 20 unit subcut HS 12/14/23 12/14/23 subcutaneous solution (Lantus U-100 Insulin) insulin lispro 100 unit/mL 1 sliding scale dose subcut [facility] 12/14/23 12/14/23 subcutaneous solution menthol 0.44 %-zinc oxide 20.6 % 1 applic topical TID 12/14/23 12/14/23 topical ointment (Calmoseptine) oxybutynin chloride 10 mg 10 mg PO DAILY 12/14/23 12/14/23 tablet,extended release 24 hr potassium chloride 10 mEq 20 meq PO HS 12/14/23 12/14/23 capsule,extended release sulfamethoxazole 400 1 tab PO BID 12/14/23 12/14/23 mg-trimethoprim 80 mg tablet (Bactrim) Previous Rx's Medication Instructions Recorded guaifenesin 600 mg tablet, 600 mg PO Q12 #10 tabs 09/22/23 extended release 12 hr (Mucinex) isosorbide dinitrate 10 mg tablet 10 mg PO BID #60 tabs 09/22/23 loperamide 2 mg capsule 2 mg PO Q4H PRN loose stool #14 10/16/23 caps magnesium chloride 64 mg 64 mg PO BID #14 tabs 10/16/23 (magnesium chloride) tablet,delayed release (Mag 64) urea 15 gram oral powder packet 15 g PO DAILY #8 ea 10/16/23 (Ure-Na) Results & Data (ED) Vital Signs Vital Signs - 24 hr 12/14/23 12:45 12/14/23 13:00 12/14/23 13:06 Temperature Temperature Source Pulse Rate 156 H 158 H 155 H Pulse Rate [Apical] Pulse Rate from SpO2 Sensor Respiratory Rate 24 20 Respiratory Effort / Characteristics Respiratory Depth Respiratory Pattern Blood Pressure 178/115 H 191/133 H Blood Pressure [Right Arm] Blood Pressure Mean 136 152 Blood Pressure Mean [Right Arm] Pulse Oximetry 100 Oxygen Delivery Method Nasal Cannula Oxygen Flow Rate 3 Sepsis Recent Fever Within 48 Hours Sepsis New/Unexplained Change in Mental Status Sepsis Action Taken by Nursing 12/14/23 13:10 12/14/23 13:10 12/14/23 13:14 Temperature 37.7 C H Temperature Source Colon Cath ( Temp Sensing) Pulse Rate 155 H 158 H 157 H Pulse Rate [Apical] Pulse Rate from SpO2 Sensor 160 H Respiratory Rate 20 19 20 Respiratory Effort / Characteristics Non-Labored Spontaneous Respiratory Depth Normal Respiratory Pattern Regular Blood Pressure 201/145 H Blood Pressure [Right Arm] Blood Pressure Mean 163 Blood Pressure Mean [Right Arm] Pulse Oximetry 96 96 96 Oxygen Delivery Method Nasal Cannula Nasal Cannula Nasal Cannula Oxygen Flow Rate 2 3 3 Sepsis Recent Fever Within 48 Hours Yes Sepsis New/Unexplained Change in Mental Status No Sepsis Action Taken by Nursing No Action Required 12/14/23 13:46 12/14/23 14:00 12/14/23 14:04 Temperature Temperature Source Pulse Rate 155 H 148 H Pulse Rate [Apical] Pulse Rate from SpO2 Sensor 155 H 148 H Respiratory Rate 22 16 Respiratory Effort / Characteristics Respiratory Depth Respiratory Pattern Blood Pressure 180/142 H 214/126 H Blood Pressure [Right Arm] 178/102 H Blood Pressure Mean 154 155 Blood Pressure Mean [Right Arm] 127 Pulse Oximetry 100 100 Oxygen Delivery Method Oxygen Flow Rate Sepsis Recent Fever Within 48 Hours Sepsis New/Unexplained Change in Mental Status Sepsis Action Taken by Nursing 12/14/23 14:31 12/14/23 15:40 Temperature Temperature Source Pulse Rate Pulse Rate [Apical] 105 H Pulse Rate from SpO2 Sensor Respiratory Rate 20 Respiratory Effort / Characteristics Non-Labored Respiratory Depth Normal Respiratory Pattern Blood Pressure Blood Pressure [Right Arm] 193/71 H Blood Pressure Mean Blood Pressure Mean [Right Arm] 111 Pulse Oximetry 100 100 Oxygen Delivery Method Nasal Cannula Nasal Cannula Oxygen Flow Rate 3 Sepsis Recent Fever Within 48 Hours Sepsis New/Unexplained Change in Mental Status Sepsis Action Taken by Nursing Laboratory Data 12/14/23 13:02 12/14/23 13:56 Lab Results 12/14/23 12/14/23 12/14/23 Range/Units 13:00 13:02 13:20 WBC 7.21 (4.8-10.8) K/ul RBC 5.43 H (4.20-5.40) M/uL Hgb 14.7 (12.0-16.0) g/dl Hct 46.4 (37.0-47.0) % MCV 85.5 (80.0-100.0) fL MCH 27.1 (25.0-34.0) pg MCHC 31.7 L (32.0-36.0) g/dL RDW Std Deviation 52.2 H (36.4-46.3) fL RDW Coeff of Xochitl 17.5 H (11.5-14.5) % Plt Count 221 (130-400) K/uL MPV 9.2 L (9.4-12.4) fL Immature Gran % (Auto) 0.6 % Neut % (Auto) 67.1 % Lymph % (Auto) 19.4 % [place] % (Auto) 12.6 % Eos % (Auto) 0.0 % Baso % (Auto) 0.3 % Neut # (Auto) 4.84 (1.40-6.50) K/uL Lymph # (Auto) 1.40 (1.20-3.40) K/uL [place] # (Auto) 0.91 H (0.11-0.59) K/uL Eos # (Auto) 0.00 (0.00-0.50) K/uL Baso # (Auto) 0.02 (0.00-0.20) K/uL Immature Gran # (Auto) 0.04 (0.01-0.20) K/uL PT Cancelled INR Cancelled VBG pH 7.39 (7.36-7.41) VBG pCO2 52 H (38-50) mmHg VBG pO2 43 mmHg VBG HCO3 32 mmol/L VBG O2 Saturation 71.8 % VBG Base Excess 5.1 mEq/L Sodium TNP Potassium TNP Chloride 105 (98-107) mmol/L Carbon Dioxide 27 (21-32) mmol/L Anion Gap TNP BUN 90 H (6-23) mg/dl Creatinine 1.51 H (0.6-1.2) mg/dl Est Cr Clr Drug Dosing Not Reportable Est GFR ( Amer) 38.5 ml/min Est GFR (Non-Af Amer) 33.2 ml/min BUN/Creatinine Ratio 59.6 H (10-20) Glucose 234 H (70-99(Fasting)) mg/dl Lactate 3.8 H* (0.4-2.0) mmol/L Calcium 13.1 H* (8.6-10.3) mg/dl Magnesium TNP Total Bilirubin 0.6 (0.2-1.0) mg/dl AST TNP ALT 31 (7-52) U/L Alkaline Phosphatase 162 H (34-104) U/L Troponin I High Sens 102.2 H* (0-14) pg/ml Total Protein 8.2 (6.0-8.3) gm/dl Albumin 4.0 (3.4-5.0) gm/dl Globulin 4.2 H (2.5-4.0) gm/dl Albumin/Globulin Ratio 1.0 (0.9-2) Procalcitonin Cancelled TSH 3.439 (0.300-4.500) uIu/ml Urine Color Yellow Urine Appearance Clear (Clear) Urine pH 7.5 (4.5-7.5) Ur Specific [place] 1.018 (1.000-1.030) Urine Protein 1+ H (Negative) Urine Glucose (UA) Negative (Negative) Urine Ketones Negative (Negative) Urine Blood Negative (Negative) Urine Nitrite Negative (Negative) Urine Bilirubin Negative (Negative) Urine Urobilinogen Negative (Negative) Ur Leukocyte Esterase Trace H (Negative) Urine WBC (Auto) 1-5 (0-5) /hpf Urine RBC (Auto) 0-4 (0-4) /hpf U Hyaline Cast (Auto) 1-5 (0-5) /lpf U Epithel Cells (Auto) >30 H (0-5) /lpf Urine Bacteria (Auto) Negative (Negative) Adenovirus (PCR) Not Detected (NotDetected) B. pertussis DNA (PCR) Not Detected (NotDetected) B.parapertussis DNA PCR Not Detected (NotDetected) C. pneumoniae DNA (PCR) Not Detected (NotDetected) Coronavirus OC43 (PCR) Not Detected (NotDetected) Coronavirus HKU1 (PCR) Not Detected (NotDetected) Coronavirus 229E (PCR) Not Detected (NotDetected) SARS-CoV-2 (PCR) Not Detected (NotDetected) Coronavirus NL63 (PCR) Not Detected (NotDetected) Human Metapneumovir PCR Not Detected (NotDetected) Influenza Type A (PCR) Not Detected (NotDetected) Influenza Type B (PCR) Not Detected (NotDetected) M. pneumoniae (PCR) Not Detected (NotDetected) Parainfluenza 1 (PCR) Not Detected (NotDetected) Parainfluenza 2 (PCR) Not Detected (NotDetected) Parainfluenza 3 (PCR) Not Detected (NotDetected) Parainfluenza 4 (PCR) Not Detected (NotDetected) RSV (PCR) Not Detected (NotDetected) Entero/Rhino (PCR) Not Detected (NotDetected) 12/14/23 12/14/23 Range/Units 13:56 15:02 WBC (4.8-10.8) K/ul RBC (4.20-5.40) M/uL Hgb (12.0-16.0) g/dl Hct (37.0-47.0) % MCV (80.0-100.0) fL MCH (25.0-34.0) pg MCHC (32.0-36.0) g/dL RDW Std Deviation (36.4-46.3) fL RDW Coeff of Xochitl (11.5-14.5) % Plt Count (130-400) K/uL MPV (9.4-12.4) fL Immature Gran % (Auto) % Neut % (Auto) % Lymph % (Auto) % [place] % (Auto) % Eos % (Auto) % Baso % (Auto) % Neut # (Auto) (1.40-6.50) K/uL Lymph # (Auto) (1.20-3.40) K/uL [place] # (Auto) (0.11-0.59) K/uL Eos # (Auto) (0.00-0.50) K/uL Baso # (Auto) (0.00-0.20) K/uL Immature Gran # (Auto) (0.01-0.20) K/uL PT 11.1 INR 1.0 VBG pH (7.36-7.41) VBG pCO2 (38-50) mmHg VBG pO2 mmHg VBG HCO3 mmol/L VBG O2 Saturation % VBG Base Excess mEq/L Sodium 144 Potassium 4.4 Chloride (98-107) mmol/L Carbon Dioxide (21-32) mmol/L Anion Gap BUN (6-23) mg/dl Creatinine (0.6-1.2) mg/dl Est Cr Clr Drug Dosing Est GFR ( Amer) ml/min Est GFR (Non-Af Amer) ml/min BUN/Creatinine Ratio (10-20) Glucose (70-99(Fasting)) mg/dl Lactate 3.2 H* (0.4-2.0) mmol/L Calcium (8.6-10.3) mg/dl Magnesium 2.4 Total Bilirubin (0.2-1.0) mg/dl AST 98 H ALT (7-52) U/L Alkaline Phosphatase (34-104) U/L Troponin I High Sens 103.7 H* (0-14) pg/ml Total Protein (6.0-8.3) gm/dl Albumin (3.4-5.0) gm/dl Globulin (2.5-4.0) gm/dl Albumin/Globulin Ratio (0.9-2) Procalcitonin 0.86 H TSH (0.300-4.500) uIu/ml Urine Color Urine Appearance (Clear) Urine pH (4.5-7.5) Ur Specific [place] (1.000-1.030) Urine Protein (Negative) Urine Glucose (UA) (Negative) Urine Ketones (Negative) Urine Blood (Negative) Urine Nitrite (Negative) Urine Bilirubin (Negative) Urine Urobilinogen (Negative) Ur Leukocyte Esterase (Negative) Urine WBC (Auto) (0-5) /hpf Urine RBC (Auto) (0-4) /hpf U Hyaline Cast (Auto) (0-5) /lpf U Epithel Cells (Auto) (0-5) /lpf Urine Bacteria (Auto) (Negative) Adenovirus (PCR) (NotDetected) B. pertussis DNA (PCR) (NotDetected) B.parapertussis DNA PCR (NotDetected) C. pneumoniae DNA (PCR) (NotDetected) Coronavirus OC43 (PCR) (NotDetected) Coronavirus HKU1 (PCR) (NotDetected) Coronavirus 229E (PCR) (NotDetected) SARS-CoV-2 (PCR) (NotDetected) Coronavirus NL63 (PCR) (NotDetected) Human Metapneumovir PCR (NotDetected) Influenza Type A (PCR) (NotDetected) Influenza Type B (PCR) (NotDetected) M. pneumoniae (PCR) (NotDetected) Parainfluenza 1 (PCR) (NotDetected) Parainfluenza 2 (PCR) (NotDetected) Parainfluenza 3 (PCR) (NotDetected) Parainfluenza 4 (PCR) (NotDetected) RSV (PCR) (NotDetected) Entero/Rhino (PCR) (NotDetected) Administered Medications Diltiazem HCl 125 mg/ Dextrose 125 mls @ 5 mls/hr IV .Q24H [facility]; Protocol Stop: 01/13/24 14:29 Last Admin: 12/14/23 14:36 Dose: 5 mg/hr, 5 mls/hr Documented By: MARIELENA Co-signed By: MERLIN Sodium Chloride (Nss) 1,000 mls @ 80 mls/hr IV .[id number] KARLA Stop: 12/15/23 18:14 Last Admin: 12/14/23 18:20 Dose: 80 mls/hr Documented By: MARIELENA Heparin Sodium/Dextrose (Heparin Sodium/Dextrose) 25,000 units in 500 mls @ 12 mls/hr IV .Q24H KARLA; Protocol Stop: 01/13/24 17:59 Last Admin: 12/14/23 18:21 Dose: 600 units/hr, 12 mls/hr Documented By: MARIELENA Co-signed By: DOLLY Discontinued Medications Heparin Sodium/Dextrose (Heparin 21973 Unit/500 Ml D5w) Confirm Administered Dose 25,000 units IV .STK-MED ONE Stop: 12/14/23 17:53 Last Admin: 12/14/23 18:21 Dose: Not Given Documented By: MARIELENA Sodium Chloride (Nss) 1,000 mls @ 999 mls/hr IV .Q1H1M ONE Stop: 12/14/23 13:44 Last Infusion: 12/14/23 14:23 Dose: Infused Documented By: Admin: 12/14/23 13:07 Dose: 999 mls/hr Documented By: JUDSON Cefepime HCl (Maxipime) 2,000 mg in 20 mls @ 5 mls/min IV NOW STA; Protocol Stop: 12/14/23 12:50 Last Admin: 12/14/23 13:56 Dose: 5 mls/min Documented By: JUDSON Daptomycin 300 mg/ Syringe 6 mls @ 3 mls/min IV NOW ONE; Protocol Stop: 12/14/23 13:01 Last Admin: 12/14/23 13:54 Dose: 3 mls/min Documented By: JUDSON Sodium Chloride (Nss) 500 mls @ 999 mls/hr IV .Q31M ONE Stop: 12/14/23 14:41 Last Infusion: 12/14/23 15:28 Dose: Infused Documented By: Admin: 12/14/23 14:23 Dose: 999 mls/hr Documented By: MARIELENA Sodium Chloride (Nss) 250 mls @ 999 mls/hr IV .Q16M ONE Stop: 12/14/23 14:26 Last Infusion: 12/14/23 14:40 Dose: Infused Documented By: Admin: 12/14/23 14:23 Dose: 999 mls/hr Documented By: MARIELENA Miscellaneous (Stat Iv Infusion Titration Per Protocol) 1 each N/A NOW STA Stop: 12/14/23 14:18 Last Admin: 12/14/23 14:23 Dose: 1 each Documented By: MARIELENA Imaging Data Radiologist's Impression: Chest X-Ray 12/14/23 12:44 XR chest 1V portable HISTORY: 78 years-old Female ams on O2 acute shortness of breath COMPARISON: 09/29/2023 TECHNIQUE: AP view of the chest FINDINGS: Cardiac silhouette is enlarged. No pneumothorax, pleural effusion or airspace consolidation. Degenerative changes of the spine and left shoulder. Reverse right shoulder arthroplasty. Cholecystectomy. IMPRESSION: Cardiomegaly without acute process. ACT 112: Negative or not required by law. The above report was generated using voice recognition software. It may contain grammatical, syntax or spelling errors. Electronically signed by: Brant Mccoy M.D. 12/14/2023 2:[address] 12/14/23 12:45 CT head/brain wo con CLINICAL HISTORY: 78 years-old Female with ams. Acutely altered mental status TECHNIQUE: Multiple axial CT images of the head were obtained without contrast. A dose lowering technique was utilized adhering to the principles of ALARA. COMPARISON: 10/03/2023 FINDINGS: No acute intracranial hemorrhage, midline shift, intracranial mass, acute territorial ischemia or abnormal extra-axial collection. Involutional changes with chronic microvascular ischemic disease. Unchanged ventriculomegaly, likely on an ex vacuo basis. The calvarium is intact. Prior bilateral lens repair. Submucosal thickening with small air-fluid level within the left maxillary sinus. IMPRESSION: No acute intracranial abnormality. ACT 112: Negative or not required by law. The above report was generated using voice recognition software. It may contain grammatical, syntax or spelling errors. Electronically signed by: Brant Mccoy M.D. 12/14/2023 2:03 PM Abdomen/Pelvis CT 12/14/23 12:[address] WITHOUT CONTRAST CT DOSE: 1410.27 mGy.cm HISTORY: Acute urinary tract infection with sepsis ams, UTI, sepsis TECHNIQUE: Multiaxial CT images of the abdomen and pelvis were performed without contrast. A dose lowering technique was utilized adhering to the principles of ALARA. COMPARISON STUDY: Chest radiograph of same day, CT abdomen and pelvis September 14, 2023 FINDINGS: Cardiomegaly with extensive coronary artery calcifications. Dilation of the main pulmonary artery suggestive of pulmonary arterial hypertension. There is an irregular 1.57 m nodular opacity of the posterior basal segment left lower lobe on image 48 with central bronchial versus cavitation. 7 mm subpleural nodule of the left lower lobe on image 34. 4 mm nodular density in the right lung base on image 1 series 5 just of a lymph node. Additional subcentimeter nodular foci within the right middle lobe measure up to 5 mm. No free air. The unenhanced spleen is mildly enlarged. Cystic foci of the pancreas measure up to 1.7 cm in the pancreatic head on image 100 appears stable from prior nonspecific, likely representing side branch IPMN's. Cholecystectomy. Mild marginal nodularity of the liver may represent cirrhosis. Heterogeneity throughout the right hepatic lobe with a focus of decreased attenuation on image 17 series 4 measuring approximately 9 cm. This appears to have progressed from the September 14, 2023 study. Cysts of the kidneys measure up to 4.9 cm on the left. No hydronephrosis. Decompressed bladder with Colon catheter. Hysterectomy. Extensive atherosclerosis of the aorta without aneurysm. Subcentimeter retroperitoneal lymph nodes. No bowel obstruction. Nonspecific wall thickening of the anal rectal junction. Colonic diverticulosis. Normal appendix. Demineralization appearance of the bones. Severe degenerative space narrowing of the lower thoracic spine. Degenerative changes of the spine, pelvis and hips. IMPRESSION: 1. Suboptimal evaluation of the solid abdominal organs without the use of IV contrast. There is heterogeneity of the liver with suggestion of a large right hepatic lobe mass. Correlation with nonemergent ultrasound and possible tissue sampling recommended. 2. Colonic diverticulosis. 3. No bowel obstruction or bowel wall thickening. 4. Subcentimeter nodular foci within the lung bases are likely infectious or inflammatory. 3 month follow-up chest CT recommended. 5. Additional findings as above. ACT 112: Negative or not required by law. The above report was generated using voice recognition software. It may contain grammatical, syntax or spelling errors. Electronically signed by: Brant Mccoy M.D. 12/14/2023 2:36 PM Discharge Plan Visit Data Chief Complaint: Unresponsive ED Provider: Solomon Connelly Discharge Problem: AMS (altered mental status), Hypercalcemia, Elevated troponin, Atrial flutter with rapid ventricular response, Acute dehydration Patient Disposition: Being Evaluated by Hospitalist Discharge Instructions Interventions: ED Discharge Assessment Last Done: 12/14/23 16:59
--- NOTE | 2023-12-14 14:15 | XRay Report ---
XR chest 1V portable HISTORY: 78 years-old Female ams on O2 acute shortness of breath COMPARISON: 09/29/2023 TECHNIQUE: AP view of the chest FINDINGS: Cardiac silhouette is enlarged. No pneumothorax, pleural effusion or airspace consolidation. Degenera tive changes of the spine and left shoulder. Reverse right shoulder arthroplasty. Cholecystectomy. IMPRESSION: Cardiomegaly without acute process. ACT 112: Negative or not required by law. The above report was generated using voice recognition software. It may contain grammatical, syntax o r spelling errors. Electronically signed by: Brant Mccoy M.D. 12/14/2023 2:14 PM
[2023-12-14 14:16] LABS: Adenovirus PCR Not Detected (NotDetected); Bordetella parapertussis PCR Not Detected (NotDetected); Bordetella pertussis PCR Not Detected (NotDetected); Chlamydia pneumoniae PCR Not Detected (NotDetected); Coronavirus 229E PCR Not Detected (NotDetected); Coronavirus CoV-2 (COVID19)PCR Not Detected (NotDetected); Coronavirus HKU1 PCR Not Detected (NotDetected); Coronavirus NL63 PCR Not Detected (NotDetected); Coronavirus OC43PCR Not Detected (NotDetected); Human Metapneumovirus PCR Not Detected (NotDetected); Influenza A PCR Not Detected (NotDetected); Influenza B PCR Not Detected (NotDetected); Mycoplasma pneumoniae PCR Not Detected (NotDetected); Parainfluenza Virus 1 PCR Not Detected (NotDetected); Parainfluenza Virus 2 PCR Not Detected (NotDetected); Parainfluenza Virus 3 PCR Not Detected (NotDetected); Parainfluenza Virus 4 PCR Not Detected (NotDetected); Respiratory Syncytial VirusPCR Not Detected (NotDetected); Rhinovirus/Enterovirus PCR Not Detected (NotDetected)
[2023-12-14] MEDS: STAT IV Infusion **Titration per Protocol STA (14:23)
[2023-12-14] MEDS: SODIUM CHLORIDE 0.9% 500 ML IV ONE (14:23)
[2023-12-14] MEDS: SODIUM CHLORIDE 0.9% 250 ML IV ONE (14:23)
[2023-12-14 14:28] LABS: Prothrombin Time 11.1 Seconds (9.0-12.0)
[2023-12-14] MEDS: dilTIAZem HCL 125 MG in DEXTROSE 5% 100 ML IV SCH (14:36)
--- NOTE | 2023-12-14 14:37 | CT Scan Report ---
ABDOMEN AND PELVIS CT WITHOUT CONTRAST CT DOSE: 1410.27 mGy.cm HISTORY: Acute urinary tract infection with sepsis ams, UTI, sepsis TECHNIQUE: Multiaxial CT images of the abdomen and pelvis were performed without contrast. A dose lo wering technique was utilized adhering to the principles of ALARA. COMPARISON STUDY: Chest radiograph of same day, CT abdomen and pelvis September 14, 2023 FINDINGS: Cardiomegaly with extensive coronary artery calcifications. Dilation of the main pulmonary artery suggestive of pulmonary arterial hypertension. There is an irregular 1.57 m nodular opacity of the posterior basal segment left lower lobe on image 48 with central bronchial versus cavitation. 7 mm subpleural nodule of the left lower lobe on image 34. 4 mm nodular density in the right lung base on image 1 series 5 just of a lymph node. Additional subcentimeter nodular foci within the right midd le lobe measure up to 5 mm. No free air. The unenhanced spleen is mildly enlarged. Cystic foci of the pancreas measure up to 1.7 cm in the pancreatic head on image 100 appears stable from prior nonspecific, likely representing dipesh e branch IPMN's. Cholecystectomy. Mild marginal nodularity of the liver may represent cirrhosis. Hete rogeneity throughout the right hepatic lobe with a focus of decreased attenuation on image 17 series 4 measuring approximately 9 cm. This appears to have progressed from the September 14, 2023 study. Cysts of the kidneys measure up to 4.9 cm on the left. No hydronephrosis. Decompressed bladder with F oley catheter. Hysterectomy. Extensive atherosclerosis of the aorta without aneurysm. Subcentimeter r etroperitoneal lymph nodes. No bowel obstruction. Nonspecific wall thickening of the anal rectal junc tion. Colonic diverticulosis. Normal appendix. Demineralization appearance of the bones. Severe degen erative space narrowing of the lower thoracic spine. Degenerative changes of the spine, pelvis and hi ps. IMPRESSION: 1. Suboptimal evaluation of the solid abdominal organs without the use of IV contrast. There is heter ogeneity of the liver with suggestion of a large right hepatic lobe mass. Correlation with nonemergen t ultrasound and possible tissue sampling recommended. 2. Colonic diverticulosis. 3. No bowel obstruction or bowel wall thickening. 4. Subcentimeter nodular foci within the lung bases are likely infectious or inflammatory. 3 month fo llow-up chest CT recommended. 5. Additional findings as above. ACT 112: Negative or not required by law. The above report was generated using voice recognition software. It may contain grammatical, syntax o r spelling errors. Electronically signed by: Brant Mccoy M.D. 12/14/2023 2:36 PM
[2023-12-14 14:40] LABS: Magnesium 2.4 mg/dl (1.7-2.4); Potassium 4.4 mmol/L (3.5-5.1)
--- NOTE | 2023-12-14 15:42 | History & Physical Report ---
Date of Service December 14, 2023 Assessment & Plan (1) Atrial flutter with rapid ventricular response: (2) AMS (altered mental status): (3) Hypercalcemia: (4) Demand ischemia: (5) ANDRESSA (acute kidney injury): Plan Pt is a 75yoF with type 2 diabetes, CKD stage III, hyperlipidemia, chronic drug- induced interstitial lung disorders, asthma mild persistent, COPD, chronic right-sided heart failure, hypertension, history of CAD, history of CVA, mild aortic stenosis, paroxysmal atrial fibrillation, moderate protein calorie malnutrition, slow transit constipation, vitamin B-12 and thiamine deficiency, history of esophageal dysphagia, GERD, gout, osteoarthritis, primary open-angle glaucoma, polyneuropathy, rheumatoid arthritis involving multiple sites with positive rheumatoid factor, depression, history of C. difficile, history of COVID presenting unresponsive from acute rehab after recent discharge in October. Pt has had multiple admissions and re-admissions. Continuous decline. Palliative Care consult was placed during the last admission for further recs after discussion with her . Pt and chose to pursue course of rehab at that time as per Palliative Care with "plan with back up for moving to comfort with hospice if rehab fails her". She is currently being treated for the following: Loss of Consciousness Altered Mental Status Acute toxic and metabolic Encephalopathy Pt presenting from rehab at [facility] with decreased responsiveness Talking at the time of admission head CT noting no acute changes/bleed Last MRI in Oct 2023 noting possibility of underlying cerebral amyloid angiopathy VBG noting mild hypercarbia Likely current mental status in setting of acute illness Repeat brain MRI ordered for any new changes Improving, continue to monitor Atrial Flutter Atrial fibrillation with RVR Pt with Hx of PAF Presented in atrial flutter, currently in a fib with RVR Was started on cardizem drip in the ED On metoprolol succinate 50mg BID at home Not chronic anticoagulation candidate Head CT with no noted bleed, started on low dose IV heparin Cardiology consulted, appreciate further recs Sepsis, MINES INSPECTOR Pt tachycardic and hypercapnic on admission, AMS with urinary infectious source Was reportedly being treated at rehab for a UTI Received 2 doses of Bactrim MINES INSPECTOR Lactate elevated at 3.8, down to 3.2 after fluid resuscitation Procal elevated at 0.86 UA from 12/08 growing Proteus resistant to fluoroquinolones Blood cx x2 pending Started on empiric Dapto and Cefepime in the ED Continue with Cefepime and empiric Dapto, follow Blood Cx results Complicated UTI Was reportedly being treated at rehab for a UTI Received 2 doses of Bactrim MINES INSPECTOR UA from 12/08 growing Proteus resistant to fluoroquinolones Repeat UA improved Continue with Cefepime as above Hypercalcemia Pt with chronic hypercalcemia However significantly elevated on arrival at 12.5, worsening to 13.1 on recheck PTH normal at 14.6 Nephrology consulted, appreciate recs Acute Kidney Injury Cr elevated at 1.51 Was within normal limits on December 03 gentle IV Fluid hydration Monitor with AM labs Demand Ischemia Elevated trop Trop elevated at 102.2 to 103.7 EKG with noted atrial flutter Repeat echo ordered Likely demand, elevated in setting of above Cardiology on board Right hepatic lobe mass CT abd/pelvis concerning for R hepatic lobe mass Recommending nonurgent US and further testing Liver US ordered Consider further discussion with pt and for further testing Elevated Liver enzymes Chronically elevated Likely elevated in setting of above Liver US as above Continue to follow with AM labs DMII AM [id number] ISS Hold home agents while hospitalized Continue to monitor glucose levels Pancytopenia Hx Currently following with Hematology Dr Serrano outpt Last seen as recently as 12/09/23. Dr Serrano stated the following at that time: "In my opinion the patient's pancytopenia is either a result of longstanding RA,ora low-grade lymphoproliferative process such asLGL." Continued followup with Hematology outpt Hx of Hyponatremia Sodium currently 144 On urea Continue at this time pending further recs from Nephrology who is on board for hypercal Continue other home meds as ordered Given pt's current presentation, consider palliative care consult once more. DVT prophylaxis: On low dose IV heparin in setting of a flutter/a fib CODE STATUS: DNR/DNI, consider palliative care consult once more Diet: DMII/minced and moist Dispo: PCU/tele History of Present Illness Chief Complaint: AMS, Lethargy Primary Care Provider: Leni Moyer, Pt is a 75yoF with type 2 diabetes, CKD stage III, hyperlipidemia, chronic drug- induced interstitial lung disorders, asthma mild persistent, COPD, chronic right-sided heart failure, hypertension, history of CAD, history of CVA, mild aortic stenosis, paroxysmal atrial fibrillation, moderate protein calorie malnutrition, slow transit constipation, vitamin B-12 and thiamine deficiency, history of esophageal dysphagia, GERD, gout, osteoarthritis, primary open-angle glaucoma, polyneuropathy, rheumatoid arthritis involving multiple sites with positive rheumatoid factor, depression, history of C. difficile, history of COVID presenting unresponsive from acute rehab after recent discharge in October. Pt has had multiple admissions and re-admissions. Continuous decline. Palliative Care consult was placed during the last admission for further recs after discussion with her . Pt and chose to pursue course of rehab at that time as per Palliative Care with "plan with back up for moving to comfort with hospice if rehab fails her". is at bedside and provides the history. States that she has been at reha b at [facility] when she became unresponsive over the past few days. States that she has not been able to communicate with him for the last 3 days and she was being treated for a UTI. Pt arousable at bedside during exam with reports that she was completely unarousable on arrival. notes that is significant improvement from the past few days. Discussion of next steps and goals, notes that she is a DNR/DNI but would like to continue with treatments at this time, reassured by pt's improving status. Pt responsive, opens her eyes to verbal stimuli but quickly falls back asleep. Lethargic. Allergies Allergy/AdvReac Type Severity Reaction Status Date / Time Influenza Virus Vaccines Allergy Severe FLOWN TO Verified 12/14/23 14:56 [facility]. ciprofloxacin Allergy Intermediate RASH/BLEEDI Verified 12/14/23 14:56 NG methotrexate Allergy Intermediate RASH/PNEUMO Verified 12/14/23 14:56 NITIS Penicillins Allergy Intermediate hives Verified 12/14/23 14:56 ranitidine Allergy Intermediate rash Verified 12/14/23 14:56 Home Medications Medication Instructions Recorded Confirmed Type folic acid 1 mg tablet 1 mg PO HS 07/20/18 12/14/23 History prednisone 5 mg tablet 5 mg PO QAM 07/20/18 12/14/23 History albuterol sulfate 90 mcg/actuation 2 puff inhalation Q4 PRN Shortness 03/07/19 12/14/23 History aerosol inhaler (ProAir HFA) Of Breath cyanocobalamin (vitamin B-12) 2,000 mcg PO [id number] 03/07/19 12/14/23 History 1,000 mcg tablet (Vitamin B-12) vit A 300 mcg-C 200 mg-E 27 1 tab PO HS 03/07/19 12/14/23 History mg-lutein 2 mg and minerals tablet (Ocuvite with Lutein) [id number] 8 mg-folic 400 1 tab PO HS 11/12/19 12/14/23 History mcg-K 50 mcg-lutein 300 mcg tablet (Centrum Silver Women) montelukast 10 mg tablet 10 mg PO QAM 11/15/20 12/14/23 History latanoprost 0.005 % eye drops 1 drp OPB HS 01/03/21 12/14/23 History acetaminophen 325 mg tablet 650 mg PO Q6H PRN Fever Or Pain 03/21/22 12/14/23 History fluticasone furoate 200 1 inh inhalation DAILY 03/21/22 12/14/23 History mcg-vilanterol 25 mcg/dose inhalation powder (Breo Ellipta) thiamine HCl (vitamin B1) 100 mg 50 mg PO HS 03/21/22 12/14/23 History tablet Lactobacillus rhamnosus GG 5 5 cell PO BIDM 08/06/22 12/14/23 History billion cell oral powder packet ([employer]) guaifenesin 600 mg tablet, 600 mg PO Q12 #10 tabs 09/22/23 12/14/23 Rx extended release 12 hr (Mucinex) isosorbide dinitrate 10 mg tablet 10 mg PO BID #60 tabs 09/22/23 12/14/23 Rx duloxetine 60 mg capsule,delayed 60 mg PO QAM 09/29/23 12/14/23 History release metoprolol succinate 50 mg 50 mg PO AMHS 09/29/23 12/14/23 History tablet,extended release 24 hr pantoprazole 40 mg tablet,delayed 40 mg PO AMHS 09/29/23 12/14/23 History release rosuvastatin 20 mg tablet 20 mg PO HS 09/29/23 12/14/23 History silver sulfadiazine 1 % topical 1 applic topical [id number] SACRAL 09/29/23 12/14/23 History cream (Silvadene) WOUND loperamide 2 mg capsule 2 mg PO Q4H PRN loose stool #14 10/16/23 12/14/23 Rx caps magnesium chloride 64 mg 64 mg PO BID #14 tabs 10/16/23 12/14/23 Rx (magnesium chloride) tablet,delayed release (Mag 64) urea 15 gram oral powder packet 15 g PO DAILY #8 ea 10/16/23 12/14/23 Rx (Ure-Na) clopidogrel 75 mg tablet 75 mg PO HS 12/14/23 12/14/23 History insulin glargine 100 unit/mL 20 unit subcut HS 12/14/23 12/14/23 History subcutaneous solution (Lantus U-100 Insulin) insulin lispro 100 unit/mL 1 sliding scale dose subcut ACHS 12/14/23 12/14/23 History subcutaneous solution menthol 0.44 %-zinc oxide 20.6 % 1 applic topical TID 12/14/23 12/14/23 History topical ointment (Calmoseptine) oxybutynin chloride 10 mg 10 mg PO DAILY 12/14/23 12/14/23 History tablet,extended release 24 hr potassium chloride 10 mEq 20 meq PO HS 12/14/23 12/14/23 History capsule,extended release sulfamethoxazole 400 1 tab PO BID 12/14/23 12/14/23 History mg-trimethoprim 80 mg tablet (Bactrim) Past Med/Surg History Medical History Wrist fracture, left History of stroke Thrush, oral Hyponatremia Nontraumatic rectus hematoma NSTEMI (non-ST elevated myocardial infarction) UTI (urinary tract infection) Immunosuppressed status DVT prophylaxis CKD (chronic kidney disease), stage III Acute hyponatremia Abnormal ECG Elevated troponin Syncope NSTEMI (non-ST elevated myocardial infarction) Visual hallucinations Hyponatremia RSV infection Recurrent Clostridium difficile diarrhea Chronic steroid use prednisone daily Gout H/O interstitial lung disease "drug induced- methotrexate " Osteoarthritis Glaucoma Peripheral neuropathy Dyslipidemia Rheumatoid arthritis "on chronic steroids" COPD (chronic obstructive pulmonary disease) inhalers prn Depression CKD (chronic kidney disease), stage III Gastroparesis DM type 2 (diabetes mellitus, type 2) GERD (gastroesophageal reflux disease) Migraines DJD of right shoulder NSTEMI (non-ST elevated myocardial infarction) (08/06/13) Asthma inhalers prn HTN (hypertension) Heart disease Surgical History History of tooth extraction all top teeth History of esophagogastroduodenoscopy (EGD) H/O cardiac catheterization "cath 07/2013- single vessel CAD involving apical segment LAD, medical management indicated" S/P total knee arthroplasty "left knee" History of hysterectomy H/O colonoscopy S/P rotator cuff repair "right shoulder" S/P removal of ovarian cyst Family History Father Family history of diabetes mellitus Mother Heart disease Hypertension Other No family history of adverse response to anesthesia Social History Smoking Status: Unknown if ever smoked Second Hand Exposure: No; Do You Dip or Chew Tobacco: No; Tobacco Cessation Education Requested by Patient: No Hx Alcohol Use: No Hx Substance Use: No Preferred Language: Palauan Communication Ability: Effective 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 Beliefs That Will Affect Care: None marital status: Current Living Situation: Rehab current occupational status: retired current occupation: Former [employer] Other Information That Helps Us Care for You: No Feels Safe at Home: Yes Safety Concerns: Feels Safe At This Time Assistive Devices: Denture - Upper, Denture - Lower and Oxygen - Continuous Review of Systems Review of Systems: Unobtainable due to cognitive status Physical Exam Physical Exam: General: Arousable at the time of this exam Skin: No noted rashes or bruises Psych: Appropriate mood and affect Neuro: weakness, difficulty with movements HEENT: NC/AT CV: Irregular rate and rhythm Resp: no increased effort of breathing Abdomen: Soft, diffusely tender Extremities: No edema in lower extremities bilaterally. Results & Data Results & Data Vital Signs (Past 12 Hours) Vital Signs Temp Pulse Pulse Resp BP BP Pulse Ox 12/14/23 15:40 105 H 20 193/71 H 100 12/14/23 14:31 100 12/14/23 14:04 178/102 H 12/14/23 14:00 148 H 16 214/126 H 100 12/14/23 13:46 155 H 22 180/142 H 100 12/14/23 13:14 157 H 20 96 12/14/23 13:10 158 H 19 201/145 H 96 12/14/23 13:10 37.7 C H 155 H 20 96 12/14/23 13:06 155 H 12/14/23 13:00 158 H 20 191/133 H 12/14/23 12:45 156 H 24 178/115 H 100 O2 Del Method O2 Flow Rate 12/14/23 15:40 Nasal Cannula 12/14/23 14:31 Nasal Cannula 3 12/14/23 14:04 12/14/23 14:00 12/14/23 13:46 12/14/23 13:14 Nasal Cannula 3 12/14/23 13:10 Nasal Cannula 3 12/14/23 13:10 Nasal Cannula 2 12/14/23 13:06 12/14/23 13:00 12/14/23 12:45 Nasal Cannula 3 Diagnostic Findings Chest X-Ray 12/14/23 12:44 XR chest 1V portable HISTORY: 78 years-old Female ams on O2 acute shortness of breath COMPARISON: 09/29/2023 TECHNIQUE: AP view of the chest FINDINGS: Cardiac silhouette is enlarged. No pneumothorax, pleural effusion or airspace consolidation. Degenerative changes of the spine and left shoulder. Reverse right shoulder arthroplasty. Cholecystectomy. IMPRESSION: Cardiomegaly without acute process. ACT 112: Negative or not required by law. The above report was generated using voice recognition software. It may contain grammatical, syntax or spelling errors. Electronically signed by: Brant Mccoy M.D. 12/14/2023 2:[address] 12/14/23 12:45 CT head/brain wo con CLINICAL HISTORY: 78 years-old Female with ams. Acutely altered mental status TECHNIQUE: Multiple axial CT images of the head were obtained without contrast. A dose lowering technique was utilized adhering to the principles of ALARA. COMPARISON: 10/03/2023 FINDINGS: No acute intracranial hemorrhage, midline shift, intracranial mass, acute territorial ischemia or abnormal extra-axial collection. Involutional changes with chronic microvascular ischemic disease. Unchanged ventriculomegaly, likely on an ex vacuo basis. The calvarium is intact. Prior bilateral lens repair. Submucosal thickening with small air-fluid level within the left maxillary sinus. IMPRESSION: No acute intracranial abnormality. ACT 112: Negative or not required by law. The above report was generated using voice recognition software. It may contain grammatical, syntax or spelling errors. Electronically signed by: Brant Mccoy M.D. 12/14/2023 2:03 PM Abdomen/Pelvis CT 12/14/23 12:[address] WITHOUT CONTRAST CT DOSE: 1410.27 mGy.cm HISTORY: Acute urinary tract infection with sepsis ams, UTI, sepsis TECHNIQUE: Multiaxial CT images of the abdomen and pelvis were performed without contrast. A dose lowering technique was utilized adhering to the principles of ALARA. COMPARISON STUDY: Chest radiograph of same day, CT abdomen and pelvis September 14, 2023 FINDINGS: Cardiomegaly with extensive coronary artery calcifications. Dilation of the main pulmonary artery suggestive of pulmonary arterial hypertension. There is an irregular 1.57 m nodular opacity of the posterior basal segment left lower lobe on image 48 with central bronchial versus cavitation. 7 mm subpleural nodule of the left lower lobe on image 34. 4 mm nodular density in the right lung base on image 1 series 5 just of a lymph node. Additional subcentimeter nodular foci within the right middle lobe measure up to 5 mm. No free air. The unenhanced spleen is mildly enlarged. Cystic foci of the pancreas measure up to 1.7 cm in the pancreatic head on image 100 appears stable from prior nonspecific, likely representing side branch IPMN's. Cholecystectomy. Mild marginal nodularity of the liver may represent cirrhosis. Heterogeneity throughout the right hepatic lobe with a focus of decreased attenuation on image 17 series 4 measuring approximately 9 cm. This appears to have progressed from the September 14, 2023 study. Cysts of the kidneys measure up to 4.9 cm on the left. No hydronephrosis. Decompressed bladder with Colon catheter. Hysterectomy. Extensive atherosclerosis of the aorta without aneurysm. Subcentimeter retroperitoneal lymph nodes. No bowel obstruction. Nonspecific wall thickening of the anal rectal junction. Colonic diverticulosis. Normal appendix. Demineralization appearance of the bones. Severe degenerative space narrowing of the lower thoracic spine. Degenerative changes of the spine, pelvis and hips. IMPRESSION: 1. Suboptimal evaluation of the solid abdominal organs without the use of IV contrast. There is heterogeneity of the liver with suggestion of a large right hepatic lobe mass. Correlation with nonemergent ultrasound and possible tissue sampling recommended. 2. Colonic diverticulosis. 3. No bowel obstruction or bowel wall thickening. 4. Subcentimeter nodular foci within the lung bases are likely infectious or inflammatory. 3 month follow-up chest CT recommended. 5. Additional findings as above. ACT 112: Negative or not required by law. The above report was generated using voice recognition software. It may contain grammatical, syntax or spelling errors. Electronically signed by: Brant Mccoy M.D. 12/14/2023 2:36 PM
[2023-12-14] MEDS ORDERED: Heparin IV Adult Wt-Based Low-Dose *NO* INITIAL Bolus Protocol IV SCH (17:37)
[2023-12-14] MEDS ORDERED: CARBOHYDRATES FOR HYPOGLYCEMIA PO PRN (18:10)
[2023-12-14] MEDS ORDERED: GLUCOSE 40% GEL 15 GM TUBE PO PRN (18:10)
[2023-12-14] MEDS ORDERED: GLUCOSE 10 TAB/TUBE PO PRN (18:10)
[2023-12-14] MEDS ORDERED: GLUCAGON FOR INJ 1 MG VIAL SQ PRN (18:10)
[2023-12-14] MEDS: SODIUM CHLORIDE 0.9% 1,000 ML IV SCH (18:20)
[2023-12-14] MEDS: HEPARIN SODIUM/DEXTROSE 25,000 UNITS/500 ML BAG IV SCH (18:21)
[2023-12-14] MEDS: HEPARIN 25000 UNIT/500 ML D5W IV ONE (18:21)
[2023-12-14] MEDS: CLOPIDOGREL BISULFATE 75 MG TAB PO SCH (20:40)
[2023-12-14] MEDS: LACTOBACILLUS ACIDOPHILUS 1 GM PACK PO SCH (20:40)
[2023-12-14] MEDS: CYANOCOBALAMIN (B-12) 500 MCG TABLET PO SCH (20:40)
[2023-12-14] MEDS: guaiFENesin 600 MG TABCR PO SCH (20:41)
[2023-12-14] MEDS: FOLIC ACID 1 MG TAB PO SCH (20:41)
[2023-12-14] MEDS: ISOSORBIDE DINITRATE 5 MG TAB PO SCH (20:41)
[2023-12-14] MEDS: PANTOprazole 40 MG TAB PO SCH (20:42)
[2023-12-14] MEDS: METOPROLOL SUCC 50MG EXT REL TAB PO SCH (20:42)
[2023-12-14] MEDS: MULTIVITAMIN TAB PO SCH (20:42)
[2023-12-14] MEDS: POTASSIUM CHLORIDE CRTAB 20 MEQ TABCR PO SCH (20:42)
[2023-12-14] MEDS: LATANOPROST 0.005% OP SOLN 2.5 ML BTL OPB SCH (20:42)
[2023-12-14] MEDS: MAGNESIUM CHLORIDE W/CALCIUM 64MG DELAYED REL TAB PO SCH (20:43)
[2023-12-14] MEDS: THIAMINE HCL 50 MG TABLET PO SCH (20:43)
[2023-12-14] MEDS: CEROVITE ADV FORMULA TAB PO SCH (20:43)
[2023-12-14] MEDS: INSULIN ASPART PER UNIT CHARGE SC SCH (20:59)
[2023-12-14] MEDS: ACETAMINOPHEN 325 MG TAB PO PRN (21:03)
[2023-12-15] MEDS: MICONAZOLE NITRATE POWDER 85 GM EXT SCH (01:37)
[2023-12-15 01:53] LABS: ANTI-Xa, UFH(UnfractionatedHep 0.34 IU/ml (0.3-0.7)
[2023-12-15] MEDS: CEFEPIME 1,000 MG in SYRINGE 0 ML IV SCH (04:32)
--- NOTE | 2023-12-15 06:50 | Ultrasound Report ---
US liver CLINICAL HISTORY: hepatic mass f/u COMPARISON STUDY: Right upper quadrant ultrasound September 01, 2023. CT of the abdomen and pelvis Ap 2023. FINDINGS: This exam is compromised by suboptimal penetration. A hypoechoic right hepatic lobe mass me asures approximately 8 cm. This corresponds to the mass shown on prior CT ultrasound. This mass has i ncreased in size since ultrasound September 11, 2023 when it measured approximately 5 cm. No additiona l hepatic lesions are identified. There is no biliary ductal patient status post cholecystectomy. Guadalupe creas is obscured pelvis. There is no right hydronephrosis. IMPRESSION: Hypoechoic right hepatic lobe mass measuring approximately 8 cm, increased in size since ultrasound of September 11, 2023. This is neoplastic. Although pathologically indeterminate, this favo rs a primary hepatic neoplasm. ACT 112: Negative or not required by law. Electronically signed by: Ga Villalta M.D. 12/15/2023 6:48 AM
--- NOTE | 2023-12-15 06:52 | Magnetic Resonance Report ---
MR brain wo con CLINICAL HISTORY: altered mental status TECHNIQUE: Multiplanar and multisequence MR images of the brain were obtained without intravenous con trast. Comparison: Comparison is made to MRI brain 09/23/[address] head 12/14/2023 FINDINGS: Exam is highly limited by patient motion. No abnormal restricted diffusion is identified. Foci of T2 and FLAIR hyperintensity are noted in the paraventricular areas consistent with chronic small vessel ischemic disease. Ex vacuo ventriculomegal y and sulcal enlargement is noted compatible with diffuse volume loss. No mass is seen. There is no m ass effect or midline shift. There is no evidence of acute intraparenchymal hemorrhage. No extra axia l fluid collections are seen. The corpus callosum, pituitary gland, and cerebellar tonsils appear lila ssly unremarkable. Flow voids of the major intracranial arterial vessels are identified. The imaged portions of the para nasal sinuses, mastoid air cells, and orbits are unremarkable. IMPRESSION: No acute abnormalities. ACT 112: Negative or not required by law. Electronically signed by: Jose Morton M.D. 12/15/2023 6:50 AM
--- NOTE | 2023-12-15 07:36 | Nephrology Consultation ---
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 some of her altered MS may relate to calcium issues though doubt that explains everything. w/ her elevated D stores, wonder if she was receiving high dose D prior to admission and if this was stopped. -stopped slo mag > can replete IV for now though will also order mag ox which has no Ca -continue NS as tolerated, though her hyponatremia may recur if this goes on too long >> daily bmp -f/u mag for AM labs, f/u pending PTHrp -daily bmp History of Present Illness Reason for Consultation: hypercalcemia Requesting Physician: Dr Holm Attending Physician: Malika Holm MD History of Present Illness 78 y/o F whom I'm asked to see for hypercalcemia was admitted yesterday from rehab at [facility] d/t progressive unresponsiveness over the past few days in the setting of treatment for UTI. PMH includes rheumatoid arthritis on prednisone, type 2 diabetes, CKD stage III baseline creatinine of 1.1, recurrent UTIs, hyperlipidemia, chronic drug-induced interstitial lung disorders, asthma mild persistent, COPD, chronic right-sided heart failure, hypertension, history of CAD, history of CVA, mild aortic stenosis, paroxysmal atrial fibrillation, ?mild cognitive impairment. noted to be in a fib w/ RVR on arrival to ER and was started on a cardizem gtt; she was able to get off of gtt. she's not been able to swallow pills today > spits out any meds that are not crushed. Recent admission here 09/05-09/22/23 w/ sepsis/R lung PNA, ANDRESSA on CKD from ischemic ATN, hyponatremia, Takotsubo cardiomyopathy with a EF of 20 to 25%. Found in that admission to have a liver mass for OP IR biopsy and w/u as an OP. Also had an extended admission here from September 29 to October 16 for management of UTI with altered mental status and pancytopenia. She has a history of other frequent hospital admissions. She was discharged to [facility] for rehab. Our service followed her during last admission for hyponatremia and she was discharged on urea and potassium chloride both as well as high-dose vitamin D. Her Plaquenil was placed on hold at discharge. She returns with a calcium yesterday of 12.5 on outpatient labs, increased to 13.1 on admission here. And down to 10.4 today w/ hydration and medical therapy. Her albumin is 3. She had 1.8 L of normal saline in the ER and is currently receiving saline at 80 mL hourly. Urea and potassium supplements were continued. She is on empiric antibiotics for UTI. Blood cultures are pending. She did have a positive urine culture for Proteus mirabilis on December 08. Admission urinalysis notable for 1+ protein and trace leukocyte Estrace but no bacteria and no other evidence of inflammation. Admission workup notable for 8 cm hepatic mass concerning for neoplasm which has grown significantly since first dx in August; d/t multiple other acute illnesses she's not had a chance to work this up. her slo mag was held this am as well as Bertrand. when I evaluated her mid morning she was restless in the bed but encephalopathic and unable to give hx or participate in ROS. Allergies Allergy/AdvReac Type Severity Reaction Status Date / Time Influenza Virus Vaccines Allergy Severe FLOWN TO Verified 12/14/23 14:56 [facility]. ciprofloxacin Allergy Intermediate RASH/BLEEDI Verified 12/14/23 14:56 NG methotrexate Allergy Intermediate RASH/PNEUMO Verified 12/14/23 14:56 NITIS Penicillins Allergy Intermediate hives Verified 12/14/23 14:56 ranitidine Allergy Intermediate rash Verified 12/14/23 14:56 Home Medications Medication Instructions Recorded Confirmed Type folic acid 1 mg tablet 1 mg PO HS 07/20/18 12/14/23 History prednisone 5 mg tablet 5 mg PO QAM 07/20/18 12/14/23 History albuterol sulfate 90 mcg/actuation 2 puff inhalation Q4 PRN Shortness 03/07/19 12/14/23 History aerosol inhaler (ProAir HFA) Of Breath cyanocobalamin (vitamin B-12) 2,000 mcg PO [id number] 03/07/19 12/14/23 History 1,000 mcg tablet (Vitamin B-12) vit A 300 mcg-C 200 mg-E 27 1 tab PO HS 03/07/19 12/14/23 History mg-lutein 2 mg and minerals tablet (Ocuvite with Lutein) [id number] 8 mg-folic 400 1 tab PO HS 11/12/19 12/14/23 History mcg-K 50 mcg-lutein 300 mcg tablet ([facility]) montelukast 10 mg tablet 10 mg PO QAM 11/15/20 12/14/23 History latanoprost 0.005 % eye drops 1 drp OPB HS 01/03/21 12/14/23 History acetaminophen 325 mg tablet 650 mg PO Q6H PRN Fever Or Pain 03/21/22 12/14/23 History fluticasone furoate 200 1 inh inhalation DAILY 03/21/22 12/14/23 History mcg-vilanterol 25 mcg/dose inhalation powder (Breo Ellipta) thiamine HCl (vitamin B1) 100 mg 50 mg PO HS 03/21/22 12/14/23 History tablet Lactobacillus rhamnosus GG 5 5 cell PO BIDM 08/06/22 12/14/23 History billion cell oral powder packet ([employer] Probiotics) guaifenesin 600 mg tablet, 600 mg PO Q12 #10 tabs 09/22/23 12/14/23 Rx extended release 12 hr (Mucinex) isosorbide dinitrate 10 mg tablet 10 mg PO BID #60 tabs 09/22/23 12/14/23 Rx duloxetine 60 mg capsule,delayed 60 mg PO QAM 09/29/23 12/14/23 History release metoprolol succinate 50 mg 50 mg PO AMHS 09/29/23 12/14/23 History tablet,extended release 24 hr pantoprazole 40 mg tablet,delayed 40 mg PO AMHS 09/29/23 12/14/23 History release rosuvastatin 20 mg tablet 20 mg PO HS 09/29/23 12/14/23 History silver sulfadiazine 1 % topical 1 applic topical [id number] SACRAL 09/29/23 12/14/23 History cream (Silvadene) WOUND loperamide 2 mg capsule 2 mg PO Q4H PRN loose stool #14 10/16/23 12/14/23 Rx caps magnesium chloride 64 mg 64 mg PO BID #14 tabs 10/16/23 12/14/23 Rx (magnesium chloride) tablet,delayed release (Mag 64) urea 15 gram oral powder packet 15 g PO DAILY #8 ea 10/16/23 12/14/23 Rx (Ure-Na) clopidogrel 75 mg tablet 75 mg PO HS 12/14/23 12/14/23 History insulin glargine 100 unit/mL 20 unit subcut HS 12/14/23 12/14/23 History subcutaneous solution (Lantus U-100 Insulin) insulin lispro 100 unit/mL 1 sliding scale dose subcut ACHS 12/14/23 12/14/23 History subcutaneous solution menthol 0.44 %-zinc oxide 20.6 % 1 applic topical TID 12/14/23 12/14/23 History topical ointment (Calmoseptine) oxybutynin chloride 10 mg 10 mg PO DAILY 12/14/23 12/14/23 History tablet,extended release 24 hr potassium chloride 10 mEq 20 meq PO HS 12/14/23 12/14/23 History capsule,extended release sulfamethoxazole 400 1 tab PO BID 12/14/23 12/14/23 History mg-trimethoprim 80 mg tablet (Bactrim) Patient History Medical History Wrist fracture, left History of stroke Thrush, oral Hyponatremia Nontraumatic rectus hematoma NSTEMI (non-ST elevated myocardial infarction) UTI (urinary tract infection) Immunosuppressed status DVT prophylaxis CKD (chronic kidney disease), stage III Acute hyponatremia Abnormal ECG Elevated troponin Syncope NSTEMI (non-ST elevated myocardial infarction) Visual hallucinations Hyponatremia RSV infection Recurrent Clostridium difficile diarrhea Chronic steroid use prednisone daily Gout H/O interstitial lung disease "drug induced- methotrexate " Osteoarthritis Glaucoma Peripheral neuropathy Dyslipidemia Rheumatoid arthritis "on chronic steroids" COPD (chronic obstructive pulmonary disease) inhalers prn Depression CKD (chronic kidney disease), stage III Gastroparesis DM type 2 (diabetes mellitus, type 2) GERD (gastroesophageal reflux disease) Migraines DJD of right shoulder NSTEMI (non-ST elevated myocardial infarction) (08/06/13) Asthma inhalers prn HTN (hypertension) Heart disease Surgical History History of tooth extraction all top teeth History of esophagogastroduodenoscopy (EGD) H/O cardiac catheterization "cath 07/2013- single vessel CAD involving apical segment LAD, medical management indicated" S/P total knee arthroplasty "left knee" History of hysterectomy H/O colonoscopy S/P rotator cuff repair "right shoulder" S/P removal of ovarian cyst Family History Father Family history of diabetes mellitus Mother Heart disease Hypertension Other No family history of adverse response to anesthesia Social History Smoking Status: Unknown if ever smoked Second Hand Exposure: No; Do You Dip or Chew Tobacco: No; Tobacco Cessation Education Requested by Patient: No Hx Alcohol Use: No Hx Substance Use: No Preferred Language: Sinhala Communication Ability: Unable Pizzamaker Required: No Beliefs That Will Affect Care: None marital status: Current Living Situation: Rehab current occupational status: retired current occupation: Former [employer] Other Information That Helps Us Care for You: No Feels Safe at Home: Yes Safety Concerns: Feels Safe At This Time Assistive Devices: Bedside Commode, Cane, Walker and Wheelchair Review of Systems 2 Review of Systems: Unobtainable due to cognitive status Physical Exam 2 Constitutional: well developed, + thin (visibly thinner than last admission), + altered mental status, + behavioral limitations, + physical limitations and + malnourished; no acute distress Eyes: EOM intact bilaterally ENMT: Ears: no external ear abnormality Nose: no external nose abnormality Mouth: + dry oral mucous membranes Neck: no nuchal rigidity Respiratory: normal respiratory effort Auscultation: + diminished lung sounds Cardiovascular: Rate/Rhythm: + irregularly irregular Extremities: no edema Gastrointestinal (Abdomen): Inspection/Auscultation: normal bowel sounds P ercussion/Palpation: abdomen soft; abdomen nontender Musculoskeletal: Extremities: strength 5/5 throughout Skin: no rashes, warm and dry Neurologic: cornejo, no tremor, restless in bed, speech is hard to understand for most part and few sentences Results & Data Vital Signs (Past 12 Hours) Vital Signs Temp Pulse Pulse Resp BP BP Pulse Ox 12/15/23 03:00 36.5 C 84 16 124/74 98 12/15/23 01:54 16 97 12/15/23 00:42 12/15/23 00:00 36.8 C 87 19 148/70 H 100 12/15/23 00:00 86 18 139/67 100 12/14/23 23:30 84 19 139/69 100 12/14/23 22:36 37.5 C 12/14/23 22:31 104 H 17 151/102 H 97 12/14/23 21:30 105 H 16 145/74 H 100 12/14/23 21:00 37.8 C H 12/14/23 20:31 105 H 18 175/65 H 95 12/14/23 20:00 106 H 16 176/71 H 100 O2 Del Method O2 Flow Rate 12/15/23 03:00 Room Air 12/15/23 01:54 Room Air 12/15/23 00:42 Nasal Cannula 2 12/15/23 00:00 Nasal Cannula 2 12/15/23 00:00 Nasal Cannula 2 12/14/23 23:30 Room Air 12/14/23 22:36 12/14/23 22:31 12/14/23 21:30 Nasal Cannula 2 12/14/23 21:00 12/14/23 20:31 Nasal Cannula 2 12/14/23 20:00 Nasal Cannula 2 Laboratory Results 12/15/23 07:57 12/15/23 07:57 pth 14 25 OHD [address] a/p non con FINDINGS: Cardiomegaly with extensive coronary artery calcifications. Dilation of the main pulmonary artery suggestive of pulmonary arterial hypertension. There is an irregular 1.57 m nodular opacity of the posterior basal segment left lower lobe on image 48 with central bronchial versus cavitation. 7 mm subpleural nodule of the left lower lobe on image 34. 4 mm nodular density in the right lung base on image 1 series 5 just of a lymph node. Additional subcentimeter nodular foci within the right middle lobe measure up to 5 mm. No free air. The unenhanced spleen is mildly enlarged. Cystic foci of the pancreas measure up to 1.7 cm in the pancreatic head on image 100 appears stable from prior nonspecific, likely representing side branch IPMN's. Cholecystectomy. Mild marginal nodularity of the liver may represent cirrhosis. Heterogeneity throughout the right hepatic lobe with a focus of decreased attenuation on image 17 series 4 measuring approximately 9 cm. This appears to have progressed from the September 14, 2023 study. Cysts of the kidneys measure up to 4.9 cm on the left. No hydronephrosis. Decompressed bladder with Colon catheter. Hysterectomy. Extensive atherosclerosis of the aorta without aneurysm. Subcentimeter retroperitoneal lymph nodes. No bowel obstruction. Nonspecific wall thickening of the anal rectal junction. Colonic diverticulosis. Normal appendix. Demineralization appearance of the bones. Severe degenerative space narrowing of the lower thoracic spine. Degenerative changes of the spine, pelvis and hips. IMPRESSION: 1. Suboptimal evaluation of the solid abdominal organs without the use of IV contrast. There is heterogeneity of the liver with suggestion of a large right hepatic lobe mass. Correlation with nonemergent ultrasound and possible tissue sampling recommended. 2. Colonic diverticulosis. 3. No bowel obstruction or bowel wall thickening. 4. Subcentimeter nodular foci within the lung bases are likely infectious or inflammatory. 3 month follow-up chest CT recommended. liver u/s IMPRESSION: Hypoechoic right hepatic lobe mass measuring approximately 8 cm, increased in size since ultrasound of September 11, 2023. This is neoplastic. Although pathologically indeterminate, this favors a primary hepatic neoplasm.
--- NOTE | 2023-12-15 07:48 | Hospitalist Progress Note ---
Date of Service December 15, 2023 Assessment & Plan (1) Atrial flutter with rapid ventricular response: (2) AMS (altered mental status): (3) Hypercalcemia: (4) Demand ischemia: (5) ANDRESSA (acute kidney injury): Plan Ms. Rodriguez is a 75yoF with type 2 diabetes, CKD stage III, hyperlipidemia, chronic drug-induced interstitial lung disorders, asthma mild persistent, COPD, chronic right-sided heart failure, hypertension, history of CAD, history of CVA, mild aortic stenosis, paroxysmal atrial fibrillation, moderate protein calorie malnutrition, slow transit constipation, vitamin B-12 and thiamine deficiency, history of esophageal dysphagia, GERD, gout, osteoarthritis, primary open-angle glaucoma, polyneuropathy, rheumatoid arthritis involving multiple sites with positive rheumatoid factor, depression, history of C. difficile, history of COVID who was admitted for sepsis after being found unresponsive at acute rehab. Pt has had multiple admissions and re-admissions. Continuous decline. Palliative Care consult was placed during the last admission for further recs after d iscussion with her . Pt and chose to pursue course of rehab at that time as per Palliative Care with "plan with back up for moving to comfort with hospice if rehab fails her". She is currently being treated for the following: #Hypercalcemia *resolving Pt with chronic hypercalcemia; appears Hgb also 14 on admission, question of dehydration iso UTI/dehydration However significantly elevated on arrival at 12.5, worsening to 13.1 on recheck PTH normal at 14.6 Nephrology consulted, appreciate recs continue gentle fluids #Hx of Hyponatremia Sodium currently 144, appears dehydrated On urea upon discharge, will hold this for now and resume/discontinue per Nephrology #Acute toxic metabolic Encephalopathy Pt presenting from rehab at [facility] with decreased responsiveness Talking at the time of admission CT Head w/o acute ICH/change Last MRI in Oct 2023 noting possibility of underlying cerebral amyloid angiopathy VBG noting mild hypercarbia MRI without acute findings, ischemia, or other structural etiologies of AMS; compatiable with diffuse volume loss Improving, continue to monitor Appears likely dehydration #Chronic anemia, likely hemoconcentrated *at baseline #Pancytopenia Hx Currently following with Hematology Dr Serrano outpt Last seen as recently as 12/09/23. Dr Serrano stated the following at that time: "In my opinion the patient's pancytopenia is either a result of longstanding RA,ora low-grade lymphoproliferative process such asLGL." Continued followup with Hematology outpt Hgb on admission 14--baseline is much lower, either lab error or notably dehydrated. #Atrial Flutter/Atrial fibrillation with RVR *resolved #Paroxysmal A fib Presented in atrial flutter, currently in a fib with RVR Was started on cardizem drip in the ED -Discontinue and encourage home metoprolol regimen Continue metoprolol succinate 50mg BID at home Previously deemed not chronic anticoagulation candidate Head CT with no noted bleed -Given history of falls and functional status will hold low dose IV heparin and defer to Cards for further AC if deemed warranted Cardiology consulted, appreciate further recs #Sepsis, [employer] #Complicated UTI Pt tachycardic and hypercapnic on admission, AMS with urinary infectious source UA from 12/08 growing Proteus resistant to fluoroquinolones Lactate elevated at 3.8, down to 3.2 after fluid resuscitation, now 1.3 Procal elevated at 0.86 Blood cx x2 pending Started on empiric Dapto and Cefepime in the ED -Will transition to IV CTX for better WILLIE and prevent neurotoxicity with cefepime -Will discontinue Dapto as MRSA nare negative and no current VRE Repeat UA did not reflex, likely combination of dehydration/infection contributing to presentation #Acute Kidney Injury *resolving Cr elevated at 1.51, likely prerenal Was within normal limits on December 03 gentle IV Fluid hydration Monitor with AM labs, bmp #Demand Ischemia iso tachyarrhythmia and sepsis Trop elevated at 102.2 to 103.7 EKG with noted atrial flutter Repeat echo ordered Likely demand, elevated in setting of above Cardiology Right hepatic lobe mass CT abd/pelvis concerning for R hepatic lobe mass Recommending nonurgent US and further testing Liver US ordered Consider further discussion with pt and for further testing #Elevated Liver enzymes Chronically elevated Likely elevated in setting of above Liver US as above Continue to follow with AM labs #DMII 6.3% 12/14 ISS Hold home agents while hospitalized Continue to monitor glucose levels DVT prophylaxis: heparin CODE STATUS: DNR/DNI, consider palliative care consult once more Diet: DMII/minced and moist Dispo: PCU/tele Admission and Anticipated Discharge Date Admission Date: December 14, 2023 Subjective Patient evaluated at bedside Denies any pain, responsive and alert to conversation, though difficult to understand Appears to be NSR this morning Physical Exam Constitutional: frail weak woman, alert and awake upon entering room, responds to name and speaks in quite/muffled voice Respiratory: diminished 2/2 effort Cardiovascular: irregular irregular, normal rate Gastrointestinal (Abdomen): normal bowel sounds, soft, nontender, no hepatosplenomegaly Results & Data Results & Data Vital Signs (Past 12 Hours) Vital Signs Temp Pulse Pulse Resp BP BP Pulse Ox 12/15/23 03:00 36.5 C 84 16 124/74 98 12/15/23 01:54 16 97 12/15/23 00:42 12/15/23 00:00 36.8 C 87 19 148/70 H 100 12/15/23 00:00 86 18 139/67 100 12/14/23 23:30 84 19 139/69 100 12/14/23 22:36 37.5 C 12/14/23 22:31 104 H 17 151/102 H 97 12/14/23 21:30 105 H 16 145/74 H 100 12/14/23 21:00 37.8 C H 12/14/23 20:31 105 H 18 175/65 H 95 12/14/23 20:00 106 H 16 176/71 H 100 O2 Del Method O2 Flow Rate 12/15/23 03:00 Room Air 12/15/23 01:54 Room Air 12/15/23 00:42 Nasal Cannula 2 12/15/23 00:00 Nasal Cannula 2 12/15/23 00:00 Nasal Cannula 2 12/14/23 23:30 Room Air 12/14/23 22:36 12/14/23 22:31 12/14/23 21:30 Nasal Cannula 2 12/14/23 21:00 12/14/23 20:31 Nasal Cannula 2 12/14/23 20:00 Nasal Cannula 2 Laboratory Results Short CBC 12/14/23 Range/Units 13:02 WBC 7.21 (4.8-10.8) K/ul Hgb 14.7 (12.0-16.0) g/dl Hct 46.4 (37.0-47.0) % Plt Count 221 (130-400) K/uL BMP 12/14/23 12/14/23 13:02 13:56 Sodium TNP 144 Potassium TNP 4.4 Chloride 105 Carbon Dioxide 27 BUN 90 H Creatinine 1.51 H Glucose 234 H Calcium 13.1 H* Liver Function 12/14/23 12/14/23 Range/Units 13:02 13:56 Total Bilirubin 0.6 (0.2-1.0) mg/dl AST TNP 98 H ALT 31 (7-52) U/L Alkaline Phosphatase 162 H (34-104) U/L Albumin 4.0 (3.4-5.0) gm/dl Urine 12/14/23 Range/Units 13:00 Urine Color Yellow Urine Appearance Clear (Clear) Urine pH 7.5 (4.5-7.5) Ur Specific [place] 1.018 (1.000-1.030) Urine Protein 1+ H (Negative) Urine Glucose (UA) Negative (Negative) Medications Administered Home Medications Medication Instructions Recorded Confirmed Last Taken folic acid 1 mg tablet 1 mg PO HS 07/20/18 12/14/23 12/13/23 prednisone 5 mg tablet 5 mg PO QAM 07/20/18 12/14/23 12/14/23 albuterol sulfate 90 mcg/actuation 2 puff inhalation Q4 PRN Shortness 03/07/19 12/14/23 05/07/23 aerosol inhaler (ProAir HFA) Of Breath cyanocobalamin (vitamin B-12) 2,000 mcg PO [id number] 03/07/19 12/14/23 12/14/23 1,000 mcg tablet (Vitamin B-12) vit A 300 mcg-C 200 mg-E 27 1 tab PO HS 03/07/19 12/14/23 12/13/23 mg-lutein 2 mg and minerals tablet (Ocuvite with Lutein) [id number]-[id number] 8 mg-folic 400 1 tab PO HS 11/12/19 12/14/23 12/13/23 mcg-K 50 mcg-lutein 300 mcg tablet (Centrum Silver Women) montelukast 10 mg tablet 10 mg PO QAM 11/15/20 12/14/23 12/14/23 latanoprost 0.005 % eye drops 1 drp OPB HS 01/03/21 12/14/23 12/13/23 acetaminophen 325 mg tablet 650 mg PO Q6H PRN Fever Or Pain 03/21/22 12/14/23 05/07/23 fluticasone furoate 200 1 inh inhalation DAILY 03/21/22 12/14/23 12/14/23 mcg-vilanterol 25 mcg/dose inhalation powder (Breo Ellipta) thiamine HCl (vitamin B1) 100 mg 50 mg PO HS 03/21/22 12/14/23 12/13/23 tablet Lactobacillus rhamnosus GG 5 5 cell PO BIDM 08/06/22 12/14/23 12/14/23 08:30 billion cell oral powder packet (Culturee Mariels Probiotics) guaifenesin 600 mg tablet, 600 mg PO Q12 #10 tabs 09/22/23 12/14/23 12/14/23 08:30 extended release 12 hr (Mucinex) isosorbide dinitrate 10 mg tablet 10 mg PO BID #60 tabs 09/22/23 12/14/23 12/14/23 08:30 duloxetine 60 mg capsule,delayed 60 mg PO [facility] 09/29/23 12/14/23 12/14/23 release metoprolol succinate 50 mg 50 mg PO [facility] 09/29/23 12/14/23 12/14/23 08:30 tablet,extended release 24 hr pantoprazole 40 mg tablet,delayed 40 mg PO [facility] 09/29/23 12/14/23 12/14/23 08:30 release rosuvastatin 20 mg tablet 20 mg PO HS 09/29/23 12/14/23 12/13/23 silver sulfadiazine 1 % topical 1 applic topical [id number] SACRAL 09/29/23 12/14/23 12/13/23 cream (Silvadene) WOUND loperamide 2 mg capsule 2 mg PO Q4H PRN loose stool #14 10/16/23 12/14/23 Unknown caps magnesium chloride 64 mg 64 mg PO BID #14 tabs 10/16/23 12/14/23 12/14/23 08:30 (magnesium chloride) tablet,delayed release (Mag 64) urea 15 gram oral powder packet 15 g PO DAILY #8 ea 10/16/23 12/14/23 12/14/23 (Ure-Na) clopidogrel 75 mg tablet 75 mg PO 12/14/23 12/14/23 12/13/23 insulin glargine 100 unit/mL 20 unit subcut HS 12/14/23 12/14/23 12/13/23 subcutaneous solution (Lantus U-100 Insulin) insulin lispro 100 unit/mL 1 sliding scale dose subcut ACHS 12/14/23 12/14/23 12/14/23 11:30 subcutaneous solution 12 UNITS menthol 0.44 %-zinc oxide 20.6 % 1 applic topical TID 12/14/23 12/14/23 12/14/23 09:00 topical ointment (Calmoseptine) oxybutynin chloride 10 mg 10 mg PO DAILY 12/14/23 12/14/23 12/14/23 08:30 tablet,extended release 24 hr potassium chloride 10 mEq 20 meq PO HS 12/14/23 12/14/23 12/13/23 capsule,extended release sulfamethoxazole 400 1 tab PO BID 12/14/23 12/14/23 12/14/23 08:30 mg-trimethoprim 80 mg tablet (Bactrim) Active Medications Generic Name Dose Route Start Last Admin Trade Name Freq PRN Reason Stop Dose Admin Acetaminophen 650 mg 12/14/23 19:24 12/14/23 21:03 Acetaminophen 325 Mg Tab PO 01/13/24 19:23 650 mg Q6H PRN Administration Fever Or Pain Clopidogrel Bisulfate 75 mg 12/14/23 21:00 12/14/23 20:40 Clopidogrel Bisulfate 75 Mg Tab PO 01/13/24 20:59 75 mg HS KARLA Administration Cyanocobalamin 2,000 mcg 12/14/23 19:45 12/14/23 20:40 Cyanocobalamin (B-12) 500 Mcg Tablet PO 01/13/24 19:44 2,000 mcg [id number] KARLA Administration Fluticasone/Vilanterol 1 puffs 12/15/23 09:00 12/15/23 08:17 Fluticasone/Vilanterol 200/25mcg 14 Puffs/Inhaler INH 01/14/24 08:59 1 puffs DAILY KARLA Administration Folic Acid 1 mg 12/14/23 21:00 12/14/23 20:41 Folic Acid 1 Mg Tab PO 01/13/24 20:59 1 mg HS KARLA Administration Guaifenesin 600 mg 12/14/23 21:00 12/14/23 20:41 Guaifenesin 600 Mg Tabcr PO 01/13/24 20:59 600 mg Q12 KARLA Administration Sodium Chloride 1,000 mls @ 80 mls/hr 12/14/23 17:15 12/15/23 06:17 Nss IV 12/15/23 18:14 80 mls/hr .[id number] KARLA Administration Cefepime HCl 1,000 mg/ Syringe 10 mls @ 5 mls/min 12/15/23 02:00 12/15/23 04:32 IV 12/25/23 01:59 5 mls/min Q12H KARLA Administration Protocol Heparin Sodium/Dextrose 25,000 units in 500 mls @ 12 mls/hr 12/14/23 18:00 12/15/23 02:02 Heparin Sodium/Dextrose IV 01/13/24 17:59 600 units/hr .Q24H KARLA 12 mls/hr Titration Protocol 600 UNITS/HR Insulin Aspart 0 units 12/14/23 21:00 12/15/23 08:05 Insulin Aspart Per Unit Charge SC 01/13/24 20:59 Not Given ACHS KARLA Isosorbide Dinitrate 10 mg 12/14/23 21:00 12/15/23 08:17 Isosorbide Dinitrate 5 Mg Tab PO 01/13/24 20:59 10 mg BID KARLA Administration Lactobacillus Acidophilus 1 gm 12/14/23 20:00 12/14/23 20:40 Lactobacillus Acidophilus 1 Gm Pack PO 01/13/24 19:59 1 gm DAILY KARLA Administration Latanoprost 1 drops 12/14/23 21:00 12/14/23 20:42 Latanoprost 0.005% Op Soln 2.5 Ml Btl OPB 01/13/24 20:59 1 drops HS KARLA Administration Magnesium Chloride 64 mg 12/14/23 21:00 12/14/23 20:43 Magnesium Chloride W/Calcium 64mg Delayed Rel Tab PO 01/13/24 20:59 64 mg BID KARLA Administration Metoprolol Succinate 50 mg 12/14/23 21:00 12/14/23 20:42 Metoprolol Succ 50mg Ext Rel Tab PO 01/13/24 20:59 50 mg AMHS KARLA Administration Miconazole Nitrate 1 appln 12/15/23 01:20 12/15/23 01:37 Miconazole Nitrate Powder 85 Gm EXT 01/14/24 01:19 1 appln BID KARLA Administration Multivitamins 1 tab 12/14/23 21:00 12/14/23 20:42 Multivitamin Tab PO 01/13/24 20:59 1 tab HS KARLA Administration Multivitamins/Minerals 1 tab 12/14/23 21:00 12/14/23 20:43 Cerovite Adv Formula Tab PO 01/13/24 20:59 1 tab HS KARLA Administration Pantoprazole Sodium 40 mg 12/14/23 21:00 12/14/23 20:42 Pantoprazole 40 Mg Tab PO 01/13/24 20:59 40 mg AMHS KARLA Administration Potassium Chloride 20 meq 12/14/23 21:00 12/14/23 20:42 Potassium Chloride Crtab 20 Meq Tabcr PO 01/13/24 20:59 20 meq HS KARLA Administration Thiamine HCl 50 mg 12/14/23 21:00 12/14/23 20:43 Thiamine Hcl 50 Mg Tablet PO 01/13/24 20:59 50 mg HS KARLA Administration
[2023-12-15] MEDS: FLUTICASONE/VILANTEROL 200/25MCG 14 PUFFS/INHALER INH SCH (08:17)
[2023-12-15 08:45] LABS: ANTI-Xa, UFH(UnfractionatedHep 0.28 IU/ml (0.3-0.7)
--- NOTE | 2023-12-15 08:45 | Cardiology Consultation ---
Date of Consultation December 15, 2023 Assessment & Plan (1) AMS (altered mental status): (2) Atrial flutter with rapid ventricular response: (3) Elevated troponin: (4) Demand ischemia: Plan Patient is a 78-year-old female admitted from altered mental status, likely multifactorial. She has had multiple admissions for similar symptoms over the last 6 months. On arrival she was found to have recurrent atrial fibrillation with rapid ventricular response with heart rates in the 150s. She was started on IV Cardizem with interval improvement in her heart rates. Cardizem has been discontinued. She remains in atrial fibrillation this morning with improved rates. Given inability to swallow whole pills and needs crushed, will transition from Metoprolol succinate to metoprolol tartrate 50 mg BID for afib and ongoing rates. She is not a candidate for long term acute care registered nurse anticoagulation. Prior brain MRI reveals possible cerebral amyloid angiopathy. She is currently receiving low dose IV heparin while admitted. Monitor Blood cultures pending. Patient recently treated for UTI. Patient clinically dry/dehydrated on admission. Recommend ongoing hydration. Minimally elevated troponin on admission secondary to demand ischemia with afib RVR. Echo with normal to hyperdynamic LVEF at 65-70% No evidence of ACS. Incidentally found to have enlarging liver mass, suspicious for neoplasm. Consider GI evaluation? There has been prior discussion regarding palliative care as well. Case discussed with Dr. Melissa I spent a total of 60 minutes on the date of service in preparation, delivery, and documentation of the care provided to this patient, excluding any time spent in the performance of separately billed services. Latonia Caldwell PA-C Department of Cardiology, [facility] This chart was completed in part utilizing Speech Voice Recognition Software. Grammatical errors, random word insertions, pronoun errors, and incomplete sentences are an occasional consequence of this system due to software limitations, ambient noise, and hardware issues. Any formal questions or concerns about the content, text, or information contained within the body of this dictation should be directly addressed to the provider for clarification. Supervising Physician Co-Signing Physician Notes Attending attestation: Case reviewed with the advanced practitioner. I have personally performed a history and physical examination on the patient. I have reviewed the advanced practitioner's documentation on the date of service referenced in note, and I agree with, and take responsibility for the plan of care. Initial EKG reveals organized atrial activity and regular RR interval, telemetry consistent with atrial fibrillation, currently rate controlled off of diltiazem infusion. I am not certain the patient is a long-term anticoagulation candidate with noted past concern for cerebral angiopathy on previous MRI, difficulty with swallowing pills, and fall/bleeding risk. She has been found to have an 8 cm hepatic mass which has grown in size compared to 4 months ago. At present proceed with metoprolol tartrate 50 mg twice daily for rate control. I spent a total of 20 minutes coordinating, documenting, and providing care for this patient excluding time spent in the performance of separately billed services or time spent by another provider. Flavio Melissa, History of Present Illness Reason for Consultation: Afib RVR; Altered mental status Requesting Physician: Dr. Holm Attending Physician: Dr. Melissa History of Present Illness Patient is a 78-year-old female admitted to [facility] with altered mental status from rehab facility/[facility]. Patient is a poor historian. Not able to provide recent history. Records reviewed. Complex history includes: 1. Takotsubo cardiomyopathy, resolving per repeat and most recent echo in September 2023. 2. Paroxysmal atrial fibrillation deemed not an anticoagulation candidate. 3. History of prior stroke - on chronic plavix 4. Concerns for possible cerebral amyloid angiopathy per prior MRI 5. Mild aortic stenosis 6. Coronary artery disease with small vessels noted in 2012, med management 7. COPD 8. Rheumatoid arthritis 9. Chronic kidney disease with hypercalcemia 10. Recurrent admissions for sepsis/encephalopathy. Patient has had multiple admissions over the last several months for encephalopathy and cognitive decline. She has been currently residing at rehab at [facility] or the reported she is making some improvement. However over the last 3 days patient has not been able to communicate and was being treated for a UTI. She was brought to ER for evaluation. On arrival EKG demonstrated atrial flutter with RVR. HS troponin minimally elevated but flat, consistent with prior evaluations. Started on Cardizem gtt. Blood cultures ordered and pending. Head CT was negative. Cardiology consulted for afib RVR. HR's trended down with IV Cardizem and IV hydration. At time of consult, patient is resting in bed comfortably. Able to respond to yes or no questions. She denies acute chest pain or shortness of breath. No sense of palpitations or tachypalpitations. Cardizem has been turned off. Heart rates currently in the 70s with ongoing atrial fibrillation. Nurse reports that she needs all of her medicines crushed. They raised the concern regarding crushing the metoprolol succinate. This morning, the nurse tried to cut the medication in half and patient continuously spit it out. She is unsure how much metoprolol she received. Allergies Allergy/AdvReac Type Severity Reaction Status Date / Time Influenza Virus Vaccines Allergy Severe FLOWN TO Verified 12/14/23 14:56 [facility]. ciprofloxacin Allergy Intermediate RASH/BLEEDI Verified 12/14/23 14:56 NG methotrexate Allergy Intermediate RASH/PNEUMO Verified 12/14/23 14:56 NITIS Penicillins Allergy Intermediate hives Verified 12/14/23 14:56 ranitidine Allergy Intermediate rash Verified 12/14/23 14:56 Home Medications Medication Instructions Recorded Confirmed Type folic acid 1 mg tablet 1 mg PO HS 07/20/18 12/14/23 History prednisone 5 mg tablet 5 mg PO QAM 07/20/18 12/14/23 History albuterol sulfate 90 mcg/actuation 2 puff inhalation Q4 PRN Shortness 03/07/19 12/14/23 History aerosol inhaler (ProAir HFA) Of Breath cyanocobalamin (vitamin B-12) 2,000 mcg PO [id number] 03/07/19 12/14/23 History 1,000 mcg tablet (Vitamin B-12) vit A 300 mcg-C 200 mg-E 27 1 tab PO HS 03/07/19 12/14/23 History mg-lutein 2 mg and minerals tablet (Ocuvite with Lutein) seytuzln-tcas-oyez 8 mg-folic 400 1 tab PO HS 11/12/19 12/14/23 History mcg-K 50 mcg-lutein 300 mcg tablet (Centrum Silver Women) montelukast 10 mg tablet 10 mg PO QAM 11/15/20 12/14/23 History latanoprost 0.005 % eye drops 1 drp OPB HS 01/03/21 12/14/23 History acetaminophen 325 mg tablet 650 mg PO Q6H PRN Fever Or Pain 03/21/22 12/14/23 History fluticasone furoate 200 1 inh inhalation DAILY 03/21/22 12/14/23 History mcg-vilanterol 25 mcg/dose inhalation powder (Breo Ellipta) thiamine HCl (vitamin B1) 100 mg 50 mg PO HS 03/21/22 12/14/23 History tablet Lactobacillus rhamnosus GG 5 5 cell PO BIDM 08/06/22 12/14/23 History billion cell oral powder packet (Nathanael [employer]) guaifenesin 600 mg tablet, 600 mg PO Q12 #10 tabs 09/22/23 12/14/23 Rx extended release 12 hr (Mucinex) isosorbide dinitrate 10 mg tablet 10 mg PO BID #60 tabs 09/22/23 12/14/23 Rx duloxetine 60 mg capsule,delayed 60 mg PO QAM 09/29/23 12/14/23 History release metoprolol succinate 50 mg 50 mg PO AMHS 09/29/23 12/14/23 History tablet,extended release 24 hr pantoprazole 40 mg tablet,delayed 40 mg PO AMHS 09/29/23 12/14/23 History release rosuvastatin 20 mg tablet 20 mg PO HS 09/29/23 12/14/23 History silver sulfadiazine 1 % topical 1 applic topical [id number] SACRAL 09/29/23 12/14/23 History cream (Silvadene) WOUND loperamide 2 mg capsule 2 mg PO Q4H PRN loose stool #14 10/16/23 12/14/23 Rx caps magnesium chloride 64 mg 64 mg PO BID #14 tabs 10/16/23 12/14/23 Rx (magnesium chloride) tablet,delayed release (Mag 64) urea 15 gram oral powder packet 15 g PO DAILY #8 ea 10/16/23 12/14/23 Rx (Ure-Na) clopidogrel 75 mg tablet 75 mg PO HS 12/14/23 12/14/23 History insulin glargine 100 unit/mL 20 unit subcut HS 12/14/23 12/14/23 History subcutaneous solution (Lantus U-100 Insulin) insulin lispro 100 unit/mL 1 sliding scale dose subcut ACHS 12/14/23 12/14/23 History subcutaneous solution menthol 0.44 %-zinc oxide 20.6 % 1 applic topical TID 12/14/23 12/14/23 History topical ointment (Calmoseptine) oxybutynin chloride 10 mg 10 mg PO DAILY 12/14/23 12/14/23 History tablet,extended release 24 hr potassium chloride 10 mEq 20 meq PO HS 12/14/23 12/14/23 History capsule,extended release sulfamethoxazole 400 1 tab PO BID 12/14/23 12/14/23 History mg-trimethoprim 80 mg tablet (Bactrim) Patient History Medical History Wrist fracture, left History of stroke Thrush, oral Hyponatremia Nontraumatic rectus hematoma NSTEMI (non-ST elevated myocardial infarction) UTI (urinary tract infection) Immunosuppressed status DVT prophylaxis CKD (chronic kidney disease), stage III Acute hyponatremia Abnormal ECG Elevated troponin Syncope NSTEMI (non-ST elevated myocardial infarction) Visual hallucinations Hyponatremia RSV infection Recurrent Clostridium difficile diarrhea Chronic steroid use prednisone daily Gout H/O interstitial lung disease "drug induced- methotrexate " Osteoarthritis Glaucoma Peripheral neuropathy Dyslipidemia Rheumatoid arthritis "on chronic steroids" COPD (chronic obstructive pulmonary disease) inhalers prn Depression CKD (chronic kidney disease), stage III Gastroparesis DM type 2 (diabetes mellitus, type 2) GERD (gastroesophageal reflux disease) Migraines DJD of right shoulder NSTEMI (non-ST elevated myocardial infarction) (08/06/13) Asthma inhalers prn HTN (hypertension) Heart disease Surgical History History of tooth extraction all top teeth History of esophagogastroduodenoscopy (EGD) H/O cardiac catheterization "cath 07/2013- single vessel CAD involving apical segment LAD, medical management indicated" S/P total knee arthroplasty "left knee" History of hysterectomy H/O colonoscopy S/P rotator cuff repair "right shoulder" S/P removal of ovarian cyst Family History Father Family history of diabetes mellitus Mother Heart disease Hypertension Other No family history of adverse response to anesthesia Social History Smoking Status: Unknown if ever smoked Second Hand Exposure: No; Do You Dip or Chew Tobacco: No; Tobacco Cessation Education Requested by Patient: No Hx Alcohol Use: No Hx Substance Use: No Preferred Language: Indonesian Communication Ability: Unable Grocery Bagger Required: No Beliefs That Will Affect Care: None marital status: Current Living Situation: Rehab current occupational status: retired current occupation: Former [employer] Other Information That Helps Us Care for You: No Feels Safe at Home: Yes Safety Concerns: Feels Safe At This Time Assistive Devices: Bedside Commode, Cane, Walker and Wheelchair Review of Systems Review of Systems: Unobtainable due to cognitive status Physical Exam Constitutional: WD/WN, vitals as above + frail appearing and + disheveled; no acute distress Neck: trachea midline, no thyromegaly Respiratory: normal respiratory effort, lungs clear to auscultation Cardiovascular: Rate/Rhythm: + irregularly irregular Heart Sounds: + murmur (II/ systolic murmur noted) Vessels: no JVD Extremities: no edema Gastrointestinal (Abdomen): normal bowel sounds, soft, nontender, no hepatosplenomegaly Skin: no rashes, warm and dry Results & Data Vital Signs (Past 12 Hours) Vital Signs Temp Pulse Pulse Resp BP BP Pulse Ox 12/15/23 07:54 36.9 C 78 16 122/69 98 12/15/23 03:00 36.5 C 84 16 124/74 98 12/15/23 01:54 16 97 12/15/23 00:42 12/15/23 00:00 36.8 C 87 19 148/70 H 100 12/15/23 00:00 86 18 139/67 100 12/14/23 23:30 84 19 139/69 100 12/14/23 22:36 37.5 C 12/14/23 22:31 104 H 17 151/102 H 97 12/14/23 21:30 105 H 16 145/74 H 100 12/14/23 21:00 37.8 C H O2 Del Method O2 Flow Rate 12/15/23 07:54 Room Air 12/15/23 03:00 Room Air 12/15/23 01:54 Room Air 12/15/23 00:42 Nasal Cannula 2 12/15/23 00:00 Nasal Cannula 2 12/15/23 00:00 Nasal Cannula 2 12/14/23 23:30 Room Air 12/14/23 22:36 12/14/23 22:31 12/14/23 21:30 Nasal Cannula 2 12/14/23 21:00 Laboratory Results Cardiac Enzymes 12/14/23 12/14/23 12/14/23 Range/Units 13:02 13:56 15:02 AST TNP 98 H Troponin I High Sens 102.2 H* 103.7 H* (0-14) pg/ml 12/14/23 Range/Units 18:46 AST Troponin I High Sens 130.0 H* D (0-14) pg/ml Coagulation 12/14/23 12/14/23 Range/Units 13:02 13:56 PT Cancelled 11.1 CBC 12/14/23 Range/Units 13:02 WBC 7.21 (4.8-10.8) K/ul RBC 5.43 H (4.20-5.40) M/uL Hgb 14.7 (12.0-16.0) g/dl Hct 46.4 (37.0-47.0) % Plt Count 221 (130-400) K/uL Neut # (Auto) 4.84 (1.40-6.50) K/uL Lymph # (Auto) 1.40 (1.20-3.40) K/uL Garland # (Auto) 0.91 H (0.11-0.59) K/uL Eos # (Auto) 0.00 (0.00-0.50) K/uL Baso # (Auto) 0.02 (0.00-0.20) K/uL Comprehensive Metabolic Panel 12/14/23 12/14/23 Range/Units 13:02 13:56 Sodium TNP 144 Potassium TNP 4.4 Chloride 105 (98-107) mmol/L Carbon Dioxide 27 (21-32) mmol/L BUN 90 H (6-23) mg/dl Creatinine 1.51 H (0.6-1.2) mg/dl Glucose 234 H (70-99(Fasting)) mg/dl Calcium 13.1 H* (8.6-10.3) mg/dl AST TNP 98 H ALT 31 (7-52) U/L Alkaline Phosphatase 162 H (34-104) U/L Total Protein 8.2 (6.0-8.3) gm/dl Albumin 4.0 (3.4-5.0) gm/dl Intake and Output 12/14/23 12/15/23 12/15/23 22:59 06:59 14:59 Intake Total 500 / 2798.2 1048.2 / 2798.2 Output Total 1150 / 1150 Balance 500 / 1648.2 -101.8 / 1648.2 Intake: IV 500 / 2798.2 1048.2 / 2798.2 Heparin Sodium/Dextrose 25,000 92.2 / 92.2 units In 500 ml @ 600 UNITS/HR 12 mls/hr IV .Q24H [facility] Rx#: [id number] Sodium Chloride 0.9% 1,000 ml @ 956 / 956 80 mls/hr IV .[id number] [facility] Rx#: [id number] Sodium Chloride 0.9% 500 ml @ 500 / 500 999 mls/hr IV .Q31M [facility] Rx#: [id number] Output: Urine Amount (Catheter) 1150 / 1150 Temp Sensing Colon 1150 / 1150 Other: Weight 53.1 kg 49.8 kg Weight Measurement Method [facility] Built in [facility] Diagnostic Findings Telemetry reviewed: Atrial fibrillation with controlled ventricular rates ranging 70 to 100 bpm. Echocardiogram report reviewed dated 12/15/2023: Atrial fibrillation with mildly elevated ventricular rates was present during the echo. No regional wall motion abnormalities are noted. LV systolic function is normal to hyperdynamic. Ejection fraction 65 to 70%. Mild valvular aortic stenosis noted. EKG on arrival 12/14/23: Atrial flutter with 2:1 AV block with RVR at 154 bmp RBBB T wave inversion in anterior leads Chest X-Ray 12/14/23 12:44 XR chest 1V portable HISTORY: 78 years-old Female ams on O2 acute shortness of breath COMPARISON: 09/29/2023 TECHNIQUE: AP view of the chest FINDINGS: Cardiac silhouette is enlarged. No pneumothorax, pleural effusion or airspace consolidation. Degenerative changes of the spine and left shoulder. Reverse right shoulder arthroplasty. Cholecystectomy. IMPRESSION: Cardiomegaly without acute process. Head CT 12/14/23 12:45 CT head/brain wo con CLINICAL HISTORY: 78 years-old Female with ams. Acutely altered mental status TECHNIQUE: Multiple axial CT images of the head were obtained without contrast. A dose lowering technique was utilized adhering to the principles of ALARA. COMPARISON: 10/03/2023 FINDINGS: No acute intracranial hemorrhage, midline shift, intracranial mass, acute territorial ischemia or abnormal extra-axial collection. Involutional changes with chronic microvascular ischemic disease. Unchanged ventriculomegaly, likely on an ex vacuo basis. The calvarium is intact. Prior bilateral lens repair. Submucosal thickening with small air-fluid level within the left maxillary sinus. IMPRESSION: No acute intracranial abnormality. Abdomen/Pelvis CT 12/14/23 12:[address] WITHOUT CONTRAST CT DOSE: 1410.27 mGy.cm HISTORY: Acute urinary tract infection with sepsis ams, UTI, sepsis TECHNIQUE: Multiaxial CT images of the abdomen and pelvis were performed without contrast. A dose lowering technique was utilized adhering to the principles of ALARA. COMPARISON STUDY: Chest radiograph of same day, CT abdomen and pelvis September 14, 2023 FINDINGS: Cardiomegaly with extensive coronary artery calcifications. Dilation of the main pulmonary artery suggestive of pulmonary arterial hypertension. There is an irregular 1.57 m nodular opacity of the posterior basal segment left lower lobe on image 48 with central bronchial versus cavitation. 7 mm subpleural nodule of the left lower lobe on image 34. 4 mm nodular density in the right lung base on image 1 series 5 just of a lymph node. Additional subcentimeter nodular foci within the right middle lobe measure up to 5 mm. No free air. The unenhanced spleen is mildly enlarged. Cystic foci of the pancreas measure up to 1.7 cm in the pancreatic head on image 100 appears stable from prior nonspecific, likely representing side branch IPMN's. Cholecystectomy. Mild marginal nodularity of the liver may represent cirrhosis. Heterogeneity throughout the right hepatic lobe with a focus of decreased attenuation on image 17 series 4 measuring approximately 9 cm. This appears to have progressed from the September 14, 2023 study. Cysts of the kidneys measure up to 4.9 cm on the left. No hydronephrosis. Decompressed bladder with Colon catheter. Hysterectomy. Extensive atherosclerosis of the aorta without aneurysm. Subcentimeter retroperitoneal lymph nodes. No bowel obstruction. Nonspecific wall thickening of the anal rectal junction. Colonic diverticulosis. Normal appendix. Demineralization appearance of the bones. Severe degenerative space narrowing of the lower thoracic spine. Degenerative changes of the spine, pelvis and hips. IMPRESSION: 1. Suboptimal evaluation of the solid abdominal organs without the use of IV contrast. There is heterogeneity of the liver with suggestion of a large right hepatic lobe mass. Correlation with nonemergent ultrasound and possible tissue sampling recommended. 2. Colonic diverticulosis. 3. No bowel obstruction or bowel wall thickening. 4. Subcentimeter nodular foci within the lung bases are likely infectious or inflammatory. 3 month follow-up chest CT recommended. 5. Additional findings as above. Liver Ultrasound 12/14/23 17:09 US liver CLINICAL HISTORY: hepatic mass f/u COMPARISON STUDY: Right upper quadrant ultrasound September 01, 2023. CT of the abdomen and pelvis December 14, 2023. FINDINGS: This exam is compromised by suboptimal penetration. A hypoechoic right hepatic lobe mass measures approximately 8 cm. This corresponds to the mass shown on prior CT ultrasound. This mass has increased in size since ultrasound September 11, 2023 when it measured approximately 5 cm. No additional hepatic lesions are identified. There is no biliary ductal patient status post cholecystectomy. Pancreas is obscured pelvis. There is no right hydronephrosis. IMPRESSION: Hypoechoic right hepatic lobe mass measuring approximately 8 cm, increased in size since ultrasound of September 11, 2023. This is neoplastic. Although pathologically indeterminate, this favors a primary hepatic neoplasm. Brain MRI 12/15/23 00:12 FINDINGS: Exam is highly limited by patient motion. No abnormal restricted diffusion is identified. Foci of T2 and FLAIR hyperintensity are noted in the paraventricular areas consistent with chronic small vessel ischemic disease. Ex vacuo ventriculomegaly and sulcal enlargement is noted compatible with diffuse volume loss. No mass is seen. There is no mass effect or midline shift. There is no evidence of acute intraparenchymal hemorrhage. No extra axial fluid collections are seen. The corpus callosum, pituitary gland, and cerebellar tonsils appear grossly unremarkable. Flow voids of the major intracranial arterial vessels are identified. The imaged portions of the paranasal sinuses, mastoid air cells, and orbits are unremarkable. IMPRESSION: No acute abnormalities. Medications Administered Current Inpatient Medications Acetaminophen (Acetaminophen 325 Mg Tab) 650 mg PO Q6H PRN PRN Reason: Fever Or Pain Stop: 01/13/24 19:23 Last Admin: 12/14/23 21:03 Dose: 650 mg Clopidogrel Bisulfate (Clopidogrel Bisulfate 75 Mg Tab) 75 mg PO HS [facility] Stop: 01/13/24 20:59 Last Admin: 12/14/23 20:40 Dose: 75 mg Cyanocobalamin (Cyanocobalamin (B-12) 500 Mcg Tablet) 2,000 mcg PO [id number] [facility] Stop: 01/13/24 19:44 Last Admin: 12/14/23 20:40 Dose: 2,000 mcg Dextrose (Dextrose 50% 50 Ml Syringe) 25 - 50 ml IV UD PRN; Protocol PRN Reason: Hypoglycemia Protocol Stop: 01/13/24 18:09 Duloxetine HCl (Duloxetine Hcl 60 Mg Cap) 60 mg PO QAM [facility] Stop: 01/14/24 08:59 Fluticasone/Vilanterol (Fluticasone/Vilanterol 200/25mcg 14 Puffs/Inhaler) 1 puffs INH DAILY [facility] Stop: 01/14/24 08:59 Last Admin: 12/15/23 08:17 Dose: 1 puffs Folic Acid (Folic Acid 1 Mg Tab) 1 mg PO HS [facility] Stop: 01/13/24 20:59 Last Admin: 12/14/23 20:41 Dose: 1 mg Glucagon (Glucagon For Inj 1 Mg Vial) 1 mg SQ UD PRN; Protocol PRN Reason: Hypoglycemia Protocol Stop: 01/13/24 18:09 Glucose (Glucose 40% Gel 15 Gm Tube) 15 - 30 gm PO UD PRN; Protocol PRN Reason: Hypoglycemia Protocol Stop: 01/13/24 18:09 Glucose (Glucose 10 Tab/Tube) 4 - 8 tab PO UD PRN; Protocol PRN Reason: Hypoglycemia Treatment Stop: 01/13/24 18:09 Guaifenesin (Guaifenesin 600 Mg Tabcr) 600 mg PO Q12 [facility] Stop: 01/13/24 20:59 Last Admin: 12/14/23 20:41 Dose: 600 mg Sodium Chloride (Nss) 1,000 mls @ 80 mls/hr IV .[id number] [facility] Stop: 12/15/23 18:14 Last Admin: 12/15/23 06:17 Dose: 80 mls/hr Heparin Sodium/Dextrose (Heparin Sodium/Dextrose) 25,000 units in 500 mls @ 12 mls/hr IV .Q24H [facility]; Protocol Stop: 01/13/24 17:59 Last Titration: 12/15/23 02:02 Dose: 600 units/hr, 12 mls/hr Ceftriaxone Sodium 2,000 mg/ (Dextrose) 50 mls @ 100 mls/hr IV Q24H [facility]; Protocol Stop: 12/20/23 08:59 Insulin Aspart (Insulin Aspart Per Unit Charge) 0 units SC ACHS [facility] Stop: 01/13/24 20:59 Last Admin: 12/15/23 08:05 Dose: Not Given Isosorbide Dinitrate (Isosorbide Dinitrate 5 Mg Tab) 10 mg PO BID [facility] Stop: 01/13/24 20:59 Last Admin: 12/15/23 08:17 Dose: 10 mg Lactobacillus Acidophilus (Lactobacillus Acidophilus 1 Gm Pack) 1 gm PO DAILY [facility] Stop: 01/13/24 19:59 Last Admin: 12/14/23 20:40 Dose: 1 gm Latanoprost (Latanoprost 0.005% Op Soln 2.5 Ml Btl) 1 drops OPB HS [facility] Stop: 01/13/24 20:59 Last Admin: 12/14/23 20:42 Dose: 1 drops Magnesium Chloride (Magnesium Chloride W/Calcium 64mg Delayed Rel Tab) 64 mg PO BID [facility] Stop: 01/13/24 20:59 Last Admin: 12/14/23 20:43 Dose: 64 mg Metoprolol Succinate (Metoprolol Succ 50mg Ext Rel Tab) 50 mg PO [facility] Stop: 01/13/24 20:59 Last Admin: 12/14/23 20:42 Dose: 50 mg Miconazole Nitrate (Miconazole Nitrate Powder 85 Gm) 1 appln EXT BID [facility] Stop: 01/14/24 01:19 Last Admin: 12/15/23 01:37 Dose: 1 appln Miscellaneous (Carbohydrates For Hypoglycemia ) 15 - 30 gm PO UD PRN PRN Reason: Hypoglycemia Protocol Stop: 01/13/24 18:09 Montelukast Sodium (Montelukast Sodium 10 Mg Tablet) 10 mg PO QAM [facility] Stop: 01/14/24 08:59 Multivitamins (Multivitamin Tab) 1 tab PO HS [facility] Stop: 01/13/24 20:59 Last Admin: 12/14/23 20:42 Dose: 1 tab Multivitamins/Minerals (Cerovite Adv Formula Tab) 1 tab PO HS [facility] Stop: 01/13/24 20:59 Last Admin: 12/14/23 20:43 Dose: 1 tab Pantoprazole Sodium (Pantoprazole 40 Mg Tab) 40 mg PO AMHS [facility] Stop: 01/13/24 20:59 Last Admin: 12/14/23 20:42 Dose: 40 mg Potassium Chloride (Potassium Chloride Crtab 20 Meq Tabcr) 20 meq PO HS [facility] Stop: 01/13/24 20:59 Last Admin: 12/14/23 20:42 Dose: 20 meq Prednisone (Prednisone 5 Mg Tab) 5 mg PO QAM [facility] Stop: 01/14/24 08:59 Thiamine HCl (Thiamine Hcl 50 Mg Tablet) 50 mg PO [facility] Stop: 01/13/24 20:59 Last Admin: 12/14/23 20:43 Dose: 50 mg Urea (Urea (Urea-Na) 15 Gm Pack) 15 gm PO DAILY [facility] Stop: 01/14/24 08:59
[2023-12-15] MEDS ORDERED: UREA (UREA-NA) 15 GM PACK PO SCH (09:00)
[2023-12-15 09:10] LABS: Basophils # (auto) 0.02 K/uL (0.00-0.20); Basophils % (auto) 0.4 %; Eosinophils # (auto) 0.06 K/uL (0.00-0.50); Eosinophils % (auto) 1.3 %; Hematocrit (blood only) 32.3 % (37.0-47.0); Hemoglobin 10.6 g/dl (12.0-16.0); Immature Granulocytes # (auto) 0.01 K/uL (0.01-0.20); Immature Granulocytes % (auto) 0.2 %; Lymphocytes # (auto) 0.96 K/uL (1.20-3.40); Lymphocytes % (auto) 21.5 %; Mean Corpuscular Hemoglobin 27.3 pg (25.0-34.0); Mean Corpuscular Hgb Conc 32.8 g/dL (32.0-36.0); Mean Corpuscular Volume 83.2 fL (80.0-100.0); Mean Platelet Volume 9.4 fL (9.4-12.4); Monocytes # (auto) 0.46 K/uL (0.11-0.59); Monocytes % (auto) 10.3 %; Neutrophils # (auto) 2.95 K/uL (1.40-6.50); Neutrophils % (auto) 66.3 %; Platelet Count 160 K/uL (130-400); Red Blood Count 3.88 M/uL (4.20-5.40); White Blood Count 4.46 K/ul (4.8-10.8)
[2023-12-15] MEDS: MONTELUKAST SODIUM 10 MG TABLET PO SCH (09:12)
[2023-12-15] MEDS: predniSONE 5 MG TAB PO SCH (09:13)
[2023-12-15] MEDS: DULoxetine HCL 60 MG CAP PO SCH (09:13)
[2023-12-15 09:25] LABS: BUN Creatinine Ratio 51.8 (10-20); Bilirubin,Total 0.6 mg/dl (0.2-1.0); Calcium 10.4 mg/dl (8.6-10.3); Creatinine Clr Calc Pharmacy 30.2 ml/min; Est GFR (African American) 54.1 ml/min; Est GFR (Non-African American) 46.7 ml/min; Magnesium 1.9 mg/dl (1.7-2.4); Phosphorus 2.9 mg/dl (2.5-4.9); Potassium 4.1 mmol/L (3.5-5.1)
[2023-12-15 09:31] LABS: Estimated Average Glucose 134 mg/dl; Hemoglobin A1C 6.3 % (4.5-5.6)
[2023-12-15] MEDS: cefTRIAXone SODIUM 2,000 MG in DEXTROSE 5 % MINI-B 50 ML IV SCH (10:35)
[2023-12-15] MEDS ORDERED: DAPTOmycin 275 MG in SYRINGE 0 ML IV SCH (14:00)
[2023-12-15] MEDS: HEPARIN SOD 5,000 UNIT/0.5 ML VIAL SQ SCH (14:48)
[2023-12-15] MEDS: METOPROLOL TARTRATE 50 MG TAB PO SCH (20:19)
[2023-12-15] MEDS: MAGNESIUM OXIDE 400 MG TAB PO SCH (20:19)
[2023-12-16 06:13] LABS: Hematocrit (blood only) 31.5 % (37.0-47.0); Hemoglobin 10.1 g/dl (12.0-16.0); Mean Corpuscular Hemoglobin 27.4 pg (25.0-34.0); Mean Corpuscular Hgb Conc 32.1 g/dL (32.0-36.0); Mean Corpuscular Volume 85.4 fL (80.0-100.0); Mean Platelet Volume 9.4 fL (9.4-12.4); Platelet Count 174 K/uL (130-400); RDW Coefficient of Variation 17.2 % (11.5-14.5); RDW Standard Deviation 52.9 fL (36.4-46.3); Red Blood Count 3.69 M/uL (4.20-5.40); White Blood Count 4.48 K/ul (4.8-10.8)
[2023-12-16 07:19] LABS: BUN Creatinine Ratio 35.7 (10-20); Bilirubin,Total 0.5 mg/dl (0.2-1.0); Calcium 10.2 mg/dl (8.6-10.3); Creatinine Clr Calc Pharmacy 27.3 ml/min; Est GFR (African American) 47.9 ml/min; Est GFR (Non-African American) 41.4 ml/min; Potassium 3.8 mmol/L (3.5-5.1)
[2023-12-16] MEDS: DEXTROSE 50% 50 ML SYRINGE IV PRN (07:34)
--- NOTE | 2023-12-16 09:17 | Nephrology Progress Note ---
Date of Service December 16, 2023 Assessment & Plan Admission and Anticipated Discharge Date Admission Date: December 14, 2023 Subjective (1) Hypercalcemia: improved readily with fluid resuscitation. Given that Na was also so much higher than usual for her--likely was volume depleted and excessive Vit D and Ca supplement. some of her altered MS may relate to calcium issues though doubt that explains everything. stopped slo mag > can replete IV for now though will also order mag ox which has no Ca continue NS as tolerated, though her hyponatremia may recur if this goes on too long f/u mag for AM labs, f/u pending PTHrp daily bmp and mag Na, K, Mag, Ca and Phos all normal today. Continue Current mag and K supplement. Frequent hospital admission with Severe failure to thrive. Consider Palliative med consult S----Not eating anything or drinking much. Very weak. Physical Exam Constitutional: well developed, + thin (visibly thinner than last admission), + altered mental status, + behavioral limitations, + physical limitations and + malnourished; no acute distress Eyes: EOM intact bilaterally ENMT: Ears: no external ear abnormality Nose: no external nose abnormality Mouth: + dry oral mucous membranes Neck: no nuchal rigidity Respiratory: normal respiratory effort Auscultation: + diminished lung sounds Cardiovascular: Rate/Rhythm: + irregularly irregular Extremities: no edema Gastrointestinal (Abdomen): Inspection/Auscultation: normal bowel sounds Percussion/Palpation: abdomen soft; abdomen nontender Musculoskeletal: Extremities: strength 5/5 throughout Skin: no rashes, warm and dry Neurologic: cornejo, no tremor, restless in bed, speech is hard to understand for most part and few sentences Results & Data Vital Signs (Past 12 Hours) Vital Signs Temp Pulse Resp BP Pulse Ox O2 Del Method 12/16/23 09:01 Room Air 12/16/23 07:25 36.7 C 76 17 170/94 H 98 Room Air 12/16/23 03:10 36.6 C 79 16 157/69 H 100 Room Air 12/15/23 22:57 36.4 C L 66 16 135/62 99 Room Air
--- NOTE | 2023-12-16 13:49 | Electrocardiogram Report ---
Test Reason : Blood Pressure : / mmHG Vent. Rate : 154 BPM Atrial Rate : 308 BPM P-R Int : 000 ms QRS Dur : 104 ms QT Int : 276 ms P-R-T Axes : -64 026 -45 degrees QTc Int : 442 ms Atrial flutter with 2:1 A-V conduction Incomplete right bundle branch block Septal infarct (cited on or before 07-OCT-2023) Possible Inferior infarct (cited on or before 07-OCT-2023) Abnormal ECG When compared with ECG of 07-OCT-2023 11:31, Atrial flutter has replaced Sinus rhythm Vent. rate has increased BY 83 BPM Confirmed by Bob Liu ([id number]) on 12/16/2023 1:49:12 PM Referred By: REFERRED SELF Confirmed By:Bob Liu
--- NOTE | 2023-12-16 14:24 | Hospitalist Progress Note ---
Date of Service December 16, 2023 Assessment & Plan (1) Atrial flutter with rapid ventricular response: (2) AMS (altered mental status): (3) Hypercalcemia: (4) Demand ischemia: (5) ANDRESSA (acute kidney injury): Plan Pt is a 75yoF with type 2 diabetes, CKD stage III, hyperlipidemia, chronic drug- induced interstitial lung disorders, asthma mild persistent, COPD, chronic right-sided heart failure, hypertension, history of CAD, history of CVA, mild aortic stenosis, paroxysmal atrial fibrillation, moderate protein calorie malnutrition, slow transit constipation, vitamin B-12 and thiamine deficiency, history of esophageal dysphagia, GERD, gout, osteoarthritis, primary open-angle glaucoma, polyneuropathy, rheumatoid arthritis involving multiple sites with positive rheumatoid factor, depression, history of C. difficile, history of COVID presenting unresponsive from acute rehab after recent discharge in October. Pt has had multiple admissions and re-admissions. Continuous decline. Palliative Care consult was placed during the last admission for further recs after discussion with her . Pt and chose to pursue course of rehab at that time as per Palliative Care with "plan with back up for moving to comfort with hospice if rehab fails her". Pt with noted concerning primary hepatic neoplasm on imaging. currently declining further workup and declining hospice services. 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[employer] Complicated UTI Pt tachycardic and hypercapnic on admission, AMS with urinary infectious source Was reportedly being treated at rehab for a UTI Received 2 doses of Bactrim [employer] Lactate elevated at 3.8, down to 3.2 then normal after fluid resuscitation Procal elevated at 0.86 UA from 12/08 growing Proteus resistant to fluoroquinolones Blood cx x2 NGTD Started on empiric Dapto and Cefepime in the ED Currently on Rocephin Atrial Flutter Atrial fibrillation with RVR Pt with Hx of PAF Presented in atrial flutter, then was in a fib with RVR Was started on cardizem drip in the ED, currently off as rate controlled On metoprolol succinate 50mg BID at home, continue Not chronic anticoagulation candidate Head CT with no noted bleed Cardiology consulted, appreciate further recs Hypercalcemia Pt with chronic hypercalcemia However significantly elevated on arrival at 12.5, worsening to 13.1 on recheck PTH normal at 14.6 Nephrology consulted, appreciate recs continue gentle fluids Hx of Hyponatremia Sodium currently 144 On urea upon discharge, currently on hold Nephrology consulted, appreciate recs Chronic anemia Pancytopenia Hx Currently following with Hematology Dr Serrano outpt Last seen as recently as 12/09/23. Dr Serrano stated the following at that time: "In my opinion the patient's pancytopenia is either a result of longstanding RA,ora low-grade lymphoproliferative process such asLGL." Continued followup with Hematology outpt Acute Kidney Injury Cr elevated at 1.51 Was within normal limits on December 03 gentle IV Fluid hydration Monitor with AM labs Demand Ischemia Elevated trop Trop elevated at 102.2 to 103.7 EKG with noted atrial flutter Echo with EF 65-70% Likely demand, elevated in setting of above Cardiology on board Right hepatic lobe mass Primary hepatic neoplasm CT abd/pelvis concerning for R hepatic lobe mass Recommending nonurgent US and further testing Liver US ordered- increased in size, favoring primary hepatic neoplasm Previous provider discussed with - declines further evaluation at this time. Elevated Liver enzymes Chronically elevated Likely elevated in setting of above Liver US as above Continue to follow with AM labs DMII 6.3% 12/14 ISS Hold home agents while hospitalized Continue to monitor glucose levels DVT prophylaxis: heparin CODE STATUS: DNR/DNI, consider palliative care consult once more Diet: DMII/minced and moist Dispo: pt/ot recommending return to [facility], pt is a bed hold Admission and Anticipated Discharge Date Admission Date: December 14, 2023 Subjective pt was seen with at bedside. pt attempting to talk but speech unintelligible. at bedside, declining hospice services at this time. Review of Systems Review of Systems: All systems reviewed & are unremarkable except as noted in Subjective Physical Exam Physical Exam: General: Alert Skin: No noted rashes or bruises Psych: Appropriate mood and affect Neuro: weakness, difficulty with movements HEENT: NC/AT CV: Irregular rate and rhythm Resp: no increased effort of breathing Abdomen: Soft, diffusely tender Extremities: No edema in lower extremities bilaterally. Results & Data Results & Data Vital Signs (Past 12 Hours) Vital Signs Temp Pulse Resp BP Pulse Ox O2 Del Method 12/16/23 11:15 36.6 C 75 18 136/72 96 Room Air 12/16/23 09:01 Room Air 12/16/23 07:25 36.7 C 76 17 170/94 H 98 Room Air 12/16/23 03:10 36.6 C 79 16 157/69 H 100 Room Air
--- NOTE | 2023-12-16 15:14 | Cardiology Progress Note ---
Date of Service December 16, 2023 Assessment & Plan (1) AMS (altered mental status): (2) Atrial flutter with rapid ventricular response: (3) Elevated troponin: (4) Demand ischemia: Plan Patient is a 78-year-old female admitted from altered mental status, likely multifactorial. She has had multiple admissions for similar symptoms over the last 6 months. On arrival she was found to have recurrent atrial fibrillation with rapid ventricular response with heart rates in the 150s. She was started on IV Cardizem with interval improvement in her heart rates. Cardizem has been discontinued. She remains in atrial fibrillation this morning with improved rates. Given inability to swallow whole pills and needs crushed, will transition from Metoprolol succinate to metoprolol tartrate 50 mg BID for afib and ongoing rates. 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 Prior brain MRI reveals possible cerebral amyloid angiopathy. She is currently receiving low dose IV heparin while admitted. Monitor Blood cultures pending. Patient recently treated for UTI. Patient clinically dry/dehydrated on admission. Recommend ongoing hydration. Minimally elevated troponin on admission secondary to demand ischemia with afib RVR. Echo with normal to hyperdynamic LVEF at 65-70% No evidence of ACS. Incidentally found to have enlarging liver mass, suspicious for neoplasm. Consider GI evaluation? There has been prior discussion regarding palliative care as well. 12/16/23: Patient converted to NSR overnight. Continue metoprolol tartrate 50 mg BID for PAF. Patient is not a candidate for anticoagulation therapy given altered mental status/fall risk/frailty/and possible cerebral amyloid angiopathy. IV heparin was discontinued Liver mass noted on admission, growing in size in the last 4 months and concerning for neoplasm. Apparently is declining further evaluation. However he is also declining hospice. would consider palliative care consult again to re-address goals of care. No further cardiac testing warranted at this time. Continue current medications. Will sign off. Please notify milk condenser provider with any additional questions or concerns. Case discussed with Dr. Melissa I spent a total of 35 minutes on the date of service in preparation, delivery, and documentation of the care provided to this patient, excluding any time spent in the performance of separately billed services. Latonia Caldwell PA-C Department of Cardiology, [facility] This chart was completed in part utilizing Speech Voice Recognition Software. Grammatical errors, random word insertions, pronoun errors, and incomplete sentences are an occasional consequence of this system due to software limitations, ambient noise, and hardware issues. Any formal questions or concerns about the content, text, or information contained within the body of this dictation should be directly addressed to the provider for clarification. Admission and Anticipated Discharge Date Admission Date: December 14, 2023 Supervising Physician Co-Signing Physician Notes Attending attestation: Case reviewed with the advanced practitioner. I have personally performed a history and physical examination on the patient. I have reviewed the advanced practitioner's documentation on the date of service referenced in note, and I agree with, and take responsibility for the plan of care. No in SR. LVEF is normal. Not a candidate for anticoagulation due to fall risk and possible amyloid angiopathy on prior MRI of brain. Proceed with metoprolol tartrate 50 mg twice daily for rate control. Agree with DVT prophylaxis dose heparin sq heparin. Call with questions or concerns. I spent a total of 20 minutes coordinating, documenting, and providing care for this patient excluding time spent in the performance of separately billed services or time spent by another provider. Flavio Melissa, DO Subjective Patient resting in bed. Review of systems not able to be performed. Does not answer questions appropriately. at bedside and feels she is "doing better". Review of Systems Review of Systems: Unobtainable due to cognitive status Physical Exam Constitutional: WD/WN, vitals as above + frail appearing and + disheveled; no acute distress Neck: trachea midline, no thyromegaly Respiratory: normal respiratory effort, lungs clear to auscultation Cardiovascular: Rate/Rhythm: regular rate and regular rhythm Heart Sounds: + murmur (II/ systolic murmur noted) Vessels: no JVD Extremities: no edema Gastrointestinal (Abdomen): normal bowel sounds, soft, nontender, no hepatosplenomegaly Skin: no rashes, warm and dry Results & Data Vital Signs (Past 12 Hours) Vital Signs Temp Pulse Resp BP Pulse Ox O2 Del Method 12/16/23 11:15 36.6 C 75 18 136/72 96 Room Air 12/16/23 09:01 Room Air 12/16/23 07:25 36.7 C 76 17 170/94 H 98 Room Air 12/16/23 03:10 36.6 C 79 16 157/69 H 100 Room Air Laboratory Results Cardiac Enzymes 12/16/23 Range/Units 05:27 AST 69 H (13-39) U/L CBC 12/16/23 Range/Units 05:27 WBC 4.48 L (4.8-10.8) K/ul RBC 3.69 L (4.20-5.40) M/uL Hgb 10.1 L (12.0-16.0) g/dl Hct 31.5 L (37.0-47.0) % Plt Count 174 (130-400) K/uL Comprehensive Metabolic Panel 12/16/23 Range/Units 05:27 Sodium 143 (136-145) mmol/L Potassium 3.8 (3.5-5.1) mmol/L Chloride 111 H (98-107) mmol/L Carbon Dioxide 25 (21-32) mmol/L BUN 45 H (6-23) mg/dl Creatinine 1.26 H (0.6-1.2) mg/dl Glucose 53 L* (70-99(Fasting)) mg/dl Calcium 10.2 (8.6-10.3) mg/dl AST 69 H (13-39) U/L ALT 22 (7-52) U/L Alkaline Phosphatase 109 H (34-104) U/L Total Protein 6.0 (6.0-8.3) gm/dl Albumin 3.0 L (3.4-5.0) gm/dl Intake and Output 12/16/23 12/16/23 12/16/23 06:59 14:59 22:59 Intake Total 50 / 50 Output Total 300 / 1052 Balance -300 / 299.933 50 / 50 Intake: IV 50 / 50 cefTRIAXone SODIUM 2,000 mg In 50 / 50 Dextrose 5 % Mini-B 50 ml @ 100 mls/hr IV Q24H [facility] Rx#: [id number] Output: Urine Amount (Catheter) 300 / 1050 Temp Sensing Colon 300 / 1050 Other: Weight 48 kg Weight Measurement Method Built in [facility] Diagnostic Findings Telemetry reviewed: Currently NSR with 1st degree AV block. Patient converted from a persistent atrial fibrillation last evening around 9:43 to NSR. She had one recurrent brief run of afib this morning, but quickly returned to NSR. Medications Administered Current Inpatient Medications Acetaminophen (Acetaminophen 325 Mg Tab) 650 mg PO Q6H PRN PRN Reason: Fever Or Pain Stop: 01/13/24 19:23 Last Admin: 12/16/23 11:44 Dose: 650 mg Clopidogrel Bisulfate (Clopidogrel Bisulfate 75 Mg Tab) 75 mg PO HS [facility] Stop: 01/13/24 20:59 Last Admin: 12/15/23 20:18 Dose: 75 mg Cyanocobalamin (Cyanocobalamin (B-12) 500 Mcg Tablet) 2,000 mcg PO [id number] [facility] Stop: 01/13/24 19:44 Last Admin: 12/16/23 09:24 Dose: 2,000 mcg Dextrose (Dextrose 50% 50 Ml Syringe) 25 - 50 ml IV UD PRN; Protocol PRN Reason: Hypoglycemia Protocol Stop: 01/13/24 18:09 Last Admin: 12/16/23 07:34 Dose: 25 ml Duloxetine HCl (Duloxetine Hcl 60 Mg Cap) 60 mg PO QAM [facility] Stop: 01/14/24 08:59 Last Admin: 12/16/23 09:25 Dose: 60 mg Fluticasone/Vilanterol (Fluticasone/Vilanterol 200/25mcg 14 Puffs/Inhaler) 1 puffs INH DAILY [facility] Stop: 01/14/24 08:59 Last Admin: 12/16/23 09:27 Dose: 1 puffs Folic Acid (Folic Acid 1 Mg Tab) 1 mg PO HS [facility] Stop: 01/13/24 20:59 Last Admin: 12/15/23 20:18 Dose: 1 mg Glucagon (Glucagon For Inj 1 Mg Vial) 1 mg SQ UD PRN; Protocol PRN Reason: Hypoglycemia Protocol Stop: 01/13/24 18:09 Glucose (Glucose 40% Gel 15 Gm Tube) 15 - 30 gm PO UD PRN; Protocol PRN Reason: Hypoglycemia Protocol Stop: 01/13/24 18:09 Glucose (Glucose 10 Tab/Tube) 4 - 8 tab PO UD PRN; Protocol PRN Reason: Hypoglycemia Treatment Stop: 01/13/24 18:09 Guaifenesin (Guaifenesin 600 Mg Tabcr) 600 mg PO Q12 [facility] Stop: 01/13/24 20:59 Last Admin: 12/16/23 09:26 Dose: 600 mg Heparin Sodium (Porcine) (Heparin Sod 5,000 Unit/0.5 Ml Vial) 5,000 units SQ Q8 [facility] Stop: 01/14/24 13:59 Last Admin: 12/16/23 13:44 Dose: 5,000 units Ceftriaxone Sodium 2,000 mg/ (Dextrose) 50 mls @ 100 mls/hr IV Q24H [facility]; Pro tocol Stop: 12/20/23 08:59 Last Infusion: 12/16/23 11:50 Dose: Infused Insulin Aspart (Insulin Aspart Per Unit Charge) 0 units SC ACHS [facility] Stop: 01/13/24 20:59 Last Admin: 12/16/23 13:09 Dose: Not Given Isosorbide Dinitrate (Isosorbide Dinitrate 5 Mg Tab) 10 mg PO BID [facility] Stop: 01/13/24 20:59 Last Admin: 12/16/23 09:26 Dose: 10 mg Lactobacillus Acidophilus (Lactobacillus Acidophilus 1 Gm Pack) 1 gm PO DAILY [facility] Stop: 01/13/24 19:59 Last Admin: 12/16/23 09:25 Dose: 1 gm Latanoprost (Latanoprost 0.005% Op Soln 2.5 Ml Btl) 1 drops OPB HS [facility] Stop: 01/13/24 20:59 Last Admin: 12/15/23 20:19 Dose: 1 drops Magnesium Oxide (Magnesium Oxide 400 Mg Tab) 400 mg PO BID [facility] Stop: 01/14/24 20:59 Last Admin: 12/16/23 10:30 Dose: 400 mg Metoprolol Tartrate (Metoprolol Tartrate 50 Mg Tab) 50 mg PO BID [facility] Stop: 01/14/24 20:59 Last Admin: 12/16/23 09:25 Dose: 50 mg Miconazole Nitrate (Miconazole Nitrate Powder 85 Gm) 1 appln EXT BID [facility] Stop: 01/14/24 01:19 Last Admin: 12/16/23 09:28 Dose: 1 appln Miscellaneous (Carbohydrates For Hypoglycemia ) 15 - 30 gm PO UD PRN PRN Reason: Hypoglycemia Protocol Stop: 01/13/24 18:09 Montelukast Sodium (Montelukast Sodium 10 Mg Tablet) 10 mg PO QAM [facility] Stop: 01/14/24 08:59 Last Admin: 12/16/23 09:25 Dose: 10 mg Multivitamins (Multivitamin Tab) 1 tab PO HS [facility] Stop: 01/13/24 20:59 Last Admin: 12/15/23 20:20 Dose: 1 tab Multivitamins/Minerals (Cerovite Adv Formula Tab) 1 tab PO HS [facility] Stop: 01/13/24 20:59 Last Admin: 12/15/23 20:21 Dose: 1 tab Pantoprazole Sodium (Pantoprazole 40 Mg Tab) 40 mg PO AMHS [facility] Stop: 01/13/24 20:59 Last Admin: 12/16/23 09:25 Dose: 40 mg Potassium Chloride (Potassium Chloride Crtab 20 Meq Tabcr) 20 meq PO HS [facility] Stop: 01/13/24 20:59 Last Admin: 12/15/23 20:21 Dose: 20 meq Prednisone (Prednisone 5 Mg Tab) 5 mg PO QAM [facility] Stop: 01/14/24 08:59 Last Admin: 12/16/23 09:25 Dose: 5 mg Thiamine HCl (Thiamine Hcl 50 Mg Tablet) 50 mg PO HS [facility] Stop: 01/13/24 20:59 Last Admin: 12/15/23 20:21 Dose: 50 mg Urea (Urea (Urea-Na) 15 Gm Pack) 15 gm PO DAILY [facility] Stop: 01/14/24 08:59
[2023-12-16] MEDS: POTASSIUM CHLORIDE PWD 20 MEQ PACK PO SCH (21:41)
[2023-12-17 07:11] LABS: Basophils # (auto) 0.01 K/uL (0.00-0.20); Basophils % (auto) 0.2 %; Eosinophils % (auto) 2.2 %; Hematocrit (blood only) 31.9 % (37.0-47.0); Hemoglobin 10.6 g/dl (12.0-16.0); Immature Granulocytes # (auto) 0.02 K/uL (0.01-0.20); Immature Granulocytes % (auto) 0.4 %; Lymphocytes # (auto) 1.61 K/uL (1.20-3.40); Lymphocytes % (auto) 35.4 %; Mean Corpuscular Hemoglobin 27.3 pg (25.0-34.0); Mean Corpuscular Hgb Conc 33.2 g/dL (32.0-36.0); Mean Corpuscular Volume 82.2 fL (80.0-100.0); Mean Platelet Volume 9.1 fL (9.4-12.4); Monocytes # (auto) 0.34 K/uL (0.11-0.59); Monocytes % (auto) 7.5 %; Neutrophils # (auto) 2.47 K/uL (1.40-6.50); Neutrophils % (auto) 54.3 %; Platelet Count 173 K/uL (130-400); RDW Coefficient of Variation 16.9 % (11.5-14.5); RDW Standard Deviation 49.8 fL (36.4-46.3); Red Blood Count 3.88 M/uL (4.20-5.40); White Blood Count 4.55 K/ul (4.8-10.8)
[2023-12-17 07:30] LABS: Albumin Level 3.1 gm/dl (3.4-5.0); BUN Creatinine Ratio 29.3 (10-20); Bilirubin,Total 0.4 mg/dl (0.2-1.0); Calcium 10.1 mg/dl (8.6-10.3); Creatinine Clr Calc Pharmacy 29.6 ml/min; Est GFR (Non-African American) 45.7 ml/min; Globulin 3.2 gm/dl (2.5-4.0); Potassium 4.2 mmol/L (3.5-5.1); Total Protein 6.3 gm/dl (6.0-8.3)
--- NOTE | 2023-12-17 07:44 | Electrocardiogram Report ---
Test Reason : Blood Pressure : / mmHG Vent. Rate : 097 BPM Atrial Rate : 141 BPM P-R Int : 000 ms QRS Dur : 112 ms QT Int : 342 ms P-R-T Axes : 000 078 -32 degrees QTc Int : 434 ms Poor data quality, interpretation may be adversely affected Atrial fibrillation Right bundle branch block Abnormal ECG When compared with ECG of 14-DEC-2023 12:42, Supraventricular tachycardia is no longer Present Confirmed by Bob Liu ([id number]) on 12/17/2023 7:44:11 AM Referred By: REFERRED SELF Confirmed By:Bob Liu
--- NOTE | 2023-12-17 10:06 | Nephrology Progress Note ---
Date of Service December 17, 2023 Assessment & Plan Admission and Anticipated Discharge Date Admission Date: December 14, 2023 Subjective Subjective (1) Hypercalcemia: improved readily with fluid resuscitation. Given that Na was also so much higher than usual for her--likely was volume depleted and excessive Vit D and Ca supplement. some of her altered MS may relate to calcium issues though doubt that explains everything. stopped slo mag > can replete IV for now though will also order mag ox which has no Ca continue NS as tolerated, though her hyponatremia may recur if this goes on too long Na, K, Mag, Ca all normal today. Phos is low--not eating so will give 21 mmol of Sodium Phos today Continue Current mag and K supplement. Frequent hospital admission with Severe failure to thrive. Consider Palliative med consult S----Not eating anything or drinking much. Very weak. Physical Exam Constitutional: well developed, + thin (visibly thinner than last admission), + altered mental status, + behavioral limitations, + physical limitations and + malnourished; no acute distress Eyes: EOM intact bilaterally ENMT: Ears: no external ear abnormality Nose: no external nose abnormality Mouth: + dry oral mucous membranes Neck: no nuchal rigidity Respiratory: normal respiratory effort Auscultation: + diminished lung sounds Cardiovascular: Rate/Rhythm: + irregularly irregular Extremities: no edema Gastrointestinal (Abdomen): Inspection/Auscultation: normal bowel sounds Percussion/Palpation: abdomen soft; abdomen nontender Musculoskeletal: Extremities: strength 5/5 throughout Skin: no rashes, warm and dry Neurologic: cornejo, no tremor, restless in bed, speech is hard to understand for most part and few sentences Results & Data Vital Signs (Past 12 Hours) Vital Signs Temp Pulse Pulse Resp BP Pulse Ox O2 Del Method 12/17/23 08:03 77 12/17/23 07:19 36.4 C L 72 18 152/82 H 98 Room Air 12/17/23 03:02 36.6 C 75 16 159/79 H 98 Room Air 12/16/23 23:08 36.7 C 78 20 136/67 98 Room Air
[2023-12-17] MEDS ORDERED: SODIUM PHOSPHATE 3 MMOL/1 ML INFUSION IV STA (10:07)
[2023-12-17] MEDS: SODIUM PHOSPHATE 21 MMOL in SODIUM CHLORIDE 0.9% 500 ML IV ONE (10:51)
--- NOTE | 2023-12-17 14:11 | Hospitalist Progress Note ---
Date of Service December 17, 2023 Assessment & Plan (1) Atrial flutter with rapid ventricular response: (2) AMS (altered mental status): (3) Hypercalcemia: (4) Demand ischemia: (5) ANDRESSA (acute kidney injury): Plan Pt is a 75yoF with type 2 diabetes, CKD stage III, hyperlipidemia, chronic drug- induced interstitial lung disorders, asthma mild persistent, COPD, chronic right-sided heart failure, hypertension, history of CAD, history of CVA, mild aortic stenosis, paroxysmal atrial fibrillation, moderate protein calorie malnutrition, slow transit constipation, vitamin B-12 and thiamine deficiency, history of esophageal dysphagia, GERD, gout, osteoarthritis, primary open-angle glaucoma, polyneuropathy, rheumatoid arthritis involving multiple sites with positive rheumatoid factor, depression, history of C. difficile, history of COVID presenting unresponsive from acute rehab after recent discharge in October. Pt has had multiple admissions and re-admissions. Continuous decline. Palliative Care consult was placed during the last admission for further recs after discussion with her . Pt and chose to pursue course of rehab at that time as per Palliative Care with "plan with back up for moving to comfort with hospice if rehab fails her". Pt with noted concerning primary hepatic neoplasm on imaging. currently declining further workup and declining hospice services. She is currently being treated for the following: Loss of Consciousness Altered Mental Status Acute toxic and metabolic Encephalopathy Pt presenting from rehab at [facility] with decreased responsiveness Talking at the time of admission head CT noting no acute changes/bleed Last MRI in Oct 2023 noting possibility of underlying cerebral amyloid angiopathy VBG noting mild hypercarbia MRI without acute findings, ischemia, or other structural etiologies of AMS; compatible with diffuse volume loss Appears likely due to dehydration Improving, continue to monitor Sepsis, [employer] Complicated UTI Pt tachycardic and hypercapnic on admission, AMS with urinary infectious source Was reportedly being treated at rehab for a UTI Received 2 doses of Bactrim [employer] Lactate elevated at 3.8, down to 3.2 then normal after fluid resuscitation Procal elevated at 0.86 UA from 12/08 growing Proteus resistant to fluoroquinolones Blood cx x2 NGTD Started on empiric Dapto and Cefepime in the ED Currently on Rocephin Atrial Flutter Atrial fibrillation with RVR Pt with Hx of PAF Presented in atrial flutter, then was in a fib with RVR Was started on cardizem drip in the ED, currently off as rate controlled On metoprolol succinate 50mg BID at home, continue Not chronic anticoagulation candidate Head CT with no noted bleed Cardiology consulted, appreciate further recs Hypercalcemia Pt with chronic hypercalcemia However significantly elevated on arrival at 12.5, worsening to 13.1 on recheck PTH normal at 14.6 Nephrology consulted, appreciate recs continue gentle fluids Hx of Hyponatremia Sodium currently 144 On urea upon discharge, currently on hold Nephrology consulted, appreciate recs Chronic anemia Pancytopenia Hx Currently following with Hematology Dr Serrano outpt Last seen as recently as 12/09/23. Dr Serrano stated the following at that time: "In my opinion the patient's pancytopenia is either a result of longstanding RA,ora low-grade lymphoproliferative process such asLGL." Continued followup with Hematology outpt Acute Kidney Injury Cr elevated at 1.51 Was within normal limits on December 03 gentle IV Fluid hydration Monitor with AM labs Demand Ischemia Elevated trop Trop elevated at 102.2 to 103.7 EKG with noted atrial flutter Echo with EF 65-70% Likely demand, elevated in setting of above Cardiology on board Right hepatic lobe mass Primary hepatic neoplasm CT abd/pelvis concerning for R hepatic lobe mass Recommending nonurgent US and further testing Liver US ordered- increased in size, favoring primary hepatic neoplasm Previous provider discussed with - declines further evaluation at this time. Elevated Liver enzymes Chronically elevated Likely elevated in setting of above Liver US as above Continue to follow with AM labs DMII 6.3% 12/14 ISS Hold home agents while hospitalized Continue to monitor glucose levels DVT prophylaxis: heparin CODE STATUS: DNR/DNI, consider palliative care consult once more Diet: DMII/minced and moist Dispo: pt/ot recommending return to [facility], pt is a bed hold Admission and Anticipated Discharge Date Admission Date: December 14, 2023 Subjective pt seen alone in the room. Sppech more coherent today. Alert and oriented to self only. Believes she's in [place] but aware she is in a medical facility. Review of Systems Review of Systems: All systems reviewed & are unremarkable except as noted in Subjective Physical Exam Physical Exam: General: Alert, thin cachetic Skin: No noted rashes or bruises Psych: Appropriate mood and affect Neuro: No gross deficits HEENT: NC/AT Chest: Nontender to palpation. CV: RRR Resp: Breath sounds clear bilaterally, no increased effort of breathing. Abdomen:Soft, nontender Extremities: No edema in lower extremities bilaterally. Results & Data Results & Data Vital Signs (Past 12 Hours) Vital Signs Temp Pulse Pulse Resp BP Pulse Ox O2 Del Method 12/17/23 11:34 36.3 C L 64 18 123/59 L 100 Room Air 12/17/23 08:03 77 12/17/23 07:19 36.4 C L 72 18 152/82 H 98 Room Air 12/17/23 03:02 36.6 C 75 16 159/79 H 98 Room Air
[2023-12-18 06:26] LABS: Basophils # (auto) 0.01 K/uL (0.00-0.20); Basophils % (auto) 0.2 %; Eosinophils # (auto) 0.08 K/uL (0.00-0.50); Eosinophils % (auto) 1.9 %; Hemoglobin 11.1 g/dl (12.0-16.0); Immature Granulocytes # (auto) 0.02 K/uL (0.01-0.20); Immature Granulocytes % (auto) 0.5 %; Lymphocytes # (auto) 1.49 K/uL (1.20-3.40); Lymphocytes % (auto) 35.1 %; Mean Corpuscular Hemoglobin 27.3 pg (25.0-34.0); Mean Corpuscular Hgb Conc 33.6 g/dL (32.0-36.0); Mean Corpuscular Volume 81.3 fL (80.0-100.0); Mean Platelet Volume 9.4 fL (9.4-12.4); Monocytes % (auto) 7.1 %; Neutrophils # (auto) 2.35 K/uL (1.40-6.50); Neutrophils % (auto) 55.2 %; Platelet Count 176 K/uL (130-400); RDW Coefficient of Variation 16.6 % (11.5-14.5); Red Blood Count 4.06 M/uL (4.20-5.40); White Blood Count 4.25 K/ul (4.8-10.8)
[2023-12-18 06:44] LABS: BUN Creatinine Ratio 26.5 (10-20); Bilirubin,Total 0.4 mg/dl (0.2-1.0); Calcium 9.4 mg/dl (8.6-10.3); Creatinine Clr Calc Pharmacy 30.4 ml/min; Est GFR (African American) 54.7 ml/min; Est GFR (Non-African American) 47.2 ml/min; Globulin 3.1 gm/dl (2.5-4.0); Magnesium 1.8 mg/dl (1.7-2.4); Phosphorus 2.8 mg/dl (2.5-4.9); Potassium 4.1 mmol/L (3.5-5.1); Total Protein 6.1 gm/dl (6.0-8.3)
--- NOTE | 2023-12-18 10:33 | Hospitalist Progress Note ---
Date of Service December 18, 2023 Assessment & Plan (1) Atrial flutter with rapid ventricular response: (2) AMS (altered mental status): (3) Hypercalcemia: (4) Demand ischemia: (5) ANDRESSA (acute kidney injury): Plan Pt is a 75yoF with type 2 diabetes, CKD stage III, hyperlipidemia, chronic drug- induced interstitial lung disorders, asthma mild persistent, COPD, chronic right-sided heart failure, hypertension, history of CAD, history of CVA, mild aortic stenosis, paroxysmal atrial fibrillation, moderate protein calorie malnutrition, slow transit constipation, vitamin B-12 and thiamine deficiency, history of esophageal dysphagia, GERD, gout, osteoarthritis, primary open-angle glaucoma, polyneuropathy, rheumatoid arthritis involving multiple sites with positive rheumatoid factor, depression, history of C. difficile, history of COVID presenting unresponsive from acute rehab after recent discharge in October. Pt has had multiple admissions and re-admissions. Continuous decline. Palliative Care consult was placed during the last admission for further recs after discussion with her . Pt and chose to pursue course of rehab at that time as per Palliative Care with "plan with back up for moving to comfort with hospice if rehab fails her". Pt with noted concerning primary hepatic neoplasm on imaging. currently declining further workup and declining hospice services. She is currently being treated for the following: Loss of Consciousness Altered Mental Status Acute toxic and metabolic Encephalopathy Pt presenting from rehab at [facility] with decreased responsiveness Talking at the time of admission head CT noting no acute changes/bleed Last MRI in Oct 2023 noting possibility of underlying cerebral amyloid angiopathy VBG noting mild hypercarbia MRI without acute findings, ischemia, or other structural etiologies of AMS; compatible with diffuse volume loss Appears likely due to dehydration Improving, continue to monitor Sepsis, [employer] Complicated UTI Pt tachycardic and hypercapnic on admission, AMS with urinary infectious source Was reportedly being treated at rehab for a UTI Received 2 doses of Bactrim [employer] Lactate elevated at 3.8, down to 3.2 then normal after fluid resuscitation Procal elevated at 0.86 UA from 12/08 growing Proteus resistant to fluoroquinolones Blood cx x2 NGTD Started on empiric Dapto and Cefepime in the ED Currently on Rocephin Atrial Flutter Atrial fibrillation with RVR Pt with Hx of PAF Presented in atrial flutter, then was in a fib with RVR Was started on cardizem drip in the ED, currently off as rate controlled On metoprolol succinate 50mg BID at home, continue Not chronic anticoagulation candidate Head CT with no noted bleed Cardiology consulted, appreciate further recs Hypercalcemia Pt with chronic hypercalcemia However significantly elevated on arrival at 12.5, worsening to 13.1 on recheck PTH normal at 14.6 Nephrology consulted, appreciate recs continue gentle fluids Hx of Hyponatremia Sodium currently 144 On urea upon discharge, currently on hold Nephrology consulted, appreciate recs Chronic anemia Pancytopenia Hx Currently following with Hematology Dr Serrano outpt Last seen as recently as 12/09/23. Dr Serrano stated the following at that time: "In my opinion the patient's pancytopenia is either a result of longstanding RA,ora low-grade lymphoproliferative process such asLGL." Continued followup with Hematology outpt Acute Kidney Injury Cr elevated at 1.51 Was within normal limits on December 03 gentle IV Fluid hydration Monitor with AM labs Demand Ischemia Elevated trop Trop elevated at 102.2 to 103.7 EKG with noted atrial flutter Echo with EF 65-70% Likely demand, elevated in setting of above Cardiology on board Right hepatic lobe mass Primary Malignant neoplasm of liver Primary hepatic neoplasm CT abd/pelvis concerning for R hepatic lobe mass Recommending nonurgent US and further testing Liver US ordered- increased in size, favoring primary hepatic neoplasm Previous provider discussed with - declines further evaluation at this time. Elevated Liver enzymes Chronically elevated Likely elevated in setting of above Liver US as above Continue to follow with AM labs DMII 6.3% 12/14 ISS Hold home agents while hospitalized Continue to monitor glucose levels Severe Malnutrition DVT prophylaxis: heparin CODE STATUS: DNR/DNI, consider palliative care consult once more Diet: DMII/minced and moist Dispo: pt/ot recommending return to [facility], pt is a bed hold Admission and Anticipated Discharge Date Admission Date: December 14, 2023 Physical Exam Physical Exam: General: Alert, thin cachetic Skin: No noted rashes or bruises Psych: Appropriate mood and affect Neuro: No gross deficits HEENT: NC/AT Chest: Nontender to palpation. CV: RRR Resp: Breath sounds clear bilaterally, no increased effort of breathing. Abdomen:Soft, nontender Extremities: No edema in lower extremities bilaterally. Results & Data Results & Data Vital Signs (Past 12 Hours) Vital Signs Temp Pulse Pulse Resp BP Pulse Ox O2 Del Method 12/18/23 07:40 70 12/18/23 07:25 36.6 C 86 17 176/82 H 94 Room Air 12/18/23 03:24 36.6 C 71 16 167/90 H 99 Room Air 12/17/23 23:10 36.9 C 67 16 155/76 H 99 Room Air
--- NOTE | 2023-12-18 14:17 | Discharge Summary ---
Discharge Summary Date of Service December 18, 2023 Notes For Next Care Provider Please ensure follow up of electrolytes Sodium 144 on admission. Was on urea outpt previously prescribed by nephrology. Urea was held while in the hospital and Na decreased to 132 on discharge. Please resume home urea on discharge STOP Slow-Mag per Nephrology as it contains calcium. Supplement with Mag Ox instead, discharged with magnesium oxide supplements. Pt with noted suspected Primary Malignant neoplasm of liver on imaging, increased in size from 2022. declining treatment or further evaluation. Medication Changes From Visit cefdinir 300mg BID x 6 more days Continue home urea Admission HPI Per Admitting Provider Pt is a 75yoF with type 2 diabetes, CKD stage III, hyperlipidemia, chronic drug- induced interstitial lung disorders, asthma mild persistent, COPD, chronic right-sided heart failure, hypertension, history of CAD, history of CVA, mild aortic stenosis, paroxysmal atrial fibrillation, moderate protein calorie malnutrition, slow transit constipation, vitamin B-12 and thiamine deficiency, history of esophageal dysphagia, GERD, gout, osteoarthritis, primary open-angle glaucoma, polyneuropathy, rheumatoid arthritis involving multiple sites with positive rheumatoid factor, depression, history of C. difficile, history of COVID presenting unresponsive from acute rehab after recent discharge in October. Pt has had multiple admissions and re-admissions. Continuous decline. Palliative Care consult was placed during the last admission for further recs after discussion with her . Pt and chose to pursue course of rehab at that time as per Palliative Care with "plan with back up for moving to comfort with hospice if rehab fails her". is at bedside and provides the history. States that she has been at rehab at [facility] when she became unresponsive over the past few days. States that she has not been able to communicate with him for the last 3 days and she was being treated for a UTI. Pt arousable at bedside during exam with reports that she was completely unarousable on arrival. notes that is significant improvement from the past few days. Discussion of next steps and goals, notes that she is a DNR/DNI but would like to continue with treatments at this time, reassured by pt's improving status. Pt responsive, opens her eyes to verbal stimuli but quickly falls back asleep. Lethargic. Admission Exam Per Admitting Provider General: Arousable at the time of this exam Skin: No noted rashes or bruises Psych: Appropriate mood and affect Neuro: weakness, difficulty with movements HEENT: NC/AT CV: Irregular rate and rhythm Resp: no increased effort of breathing Abdomen: Soft, diffusely tender Extremities: No edema in lower extremities bilaterally. Principal Dx & Hospital Course #1 = Principal Diagnosis (1) Atrial flutter with rapid ventricular response: (2) AMS (altered mental status): (3) Hypercalcemia: (4) Demand ischemia: (5) ANDRESSA (acute kidney injury): Plan Pt is a 75yoF with type 2 diabetes, CKD stage III, hyperlipidemia, chronic drug- induced interstitial lung disorders, asthma mild persistent, COPD, chronic right-sided heart failure, hypertension, history of CAD, history of CVA, mild aortic stenosis, paroxysmal atrial fibrillation, moderate protein calorie malnutrition, slow transit constipation, vitamin B-12 and thiamine deficiency, history of esophageal dysphagia, GERD, gout, osteoarthritis, primary open-angle glaucoma, polyneuropathy, rheumatoid arthritis involving multiple sites with positive rheumatoid factor, depression, history of C. difficile, history of COVID presenting unresponsive from acute rehab after recent discharge in October. Pt has had multiple admissions and re-admissions. Continuous decline. Palliative Care consult was placed during the last admission for further recs after discussion with her . Pt and chose to pursue course of rehab at that time as per Palliative Care with "plan with back up for moving to comfort with hospice if rehab fails her". Pt with noted concerning primary hepatic neoplasm on imaging. currently declining further workup and would like her discharged to [facility] with transition to hospice services. She is currently being treated for the following: Loss of Consciousness Altered Mental Status Acute toxic and metabolic Encephalopathy Pt presenting from rehab at [facility] with decreased responsiveness Talking at the time of admission head CT noting no acute changes/bleed Last MRI in Oct 2023 noting possibility of underlying cerebral amyloid angiopathy VBG noting mild hypercarbia MRI without acute findings, ischemia, or other structural etiologies of AMS; compatible with diffuse volume loss Appears likely due to dehydration Improved on discharge. Pt at her baseline. Sepsis, [employer] Complicated UTI Pt tachycardic and hypercapnic on admission, AMS with urinary infectious source Was reportedly being treated at rehab for a UTI Received 2 doses of Bactrim [employer], discontinued. Lactate elevated at 3.8, down to 3.2 then normal after fluid resuscitation Procal elevated at 0.86 UA from 12/08 growing Proteus resistant to fluoroquinolones Blood cx x2 NGTD Started on empiric Dapto and Cefepime in the ED Transitioned to Rocephin for 4 days Discharged with po cefdinir 300mg BID x 6 more days. Atrial Flutter Atrial fibrillation with RVR Pt with Hx of PAF Presented in atrial flutter, then was in a fib with RVR Was started on cardizem drip in the ED, currently off as rate controlled On metoprolol succinate 50mg BID at home, continue Not chronic anticoagulation candidate Head CT with no noted bleed Cardiology was consulted, please ensure followup after discharge. Hypercalcemia Pt with chronic hypercalcemia However significantly elevated on arrival at 12.5, worsened to 13.1 on recheck PTH normal at 14.6 Nephrology consulted, appreciate recs Treated with gentle fluids, pt significantly dehydrated Calcium level at 9.4 on discharge Hx of Hyponatremia Sodium 144 on admission Was on urea previously prescribed by nephrology Was held while in the hospital and Na decreased to 132 on discharge Please resume home urea on discharge Nephrology consulted. Hypomagnesemia STOP Slow-Mag per Nephrology as it contains calcium Supplement with Mag ox instead, discharged with supplements. Chronic anemia Pancytopenia Hx Currently following with Hematology Dr Serrano outpt Last seen as recently as 12/09/23. Dr Serrano stated the following at that time: "In my opinion the patient's pancytopenia is either a result of longstanding RA,ora low-grade lymphoproliferative process such asLGL." Continued followup with Hematology outpt Acute Kidney Injury Cr elevated at 1.51 Was within normal limits on December 03 gentle IV Fluid hydration Cr wnl on discharge at 1.13 Demand Ischemia Elevated trop Trop elevated at 102.2 to 103.7 EKG with noted atrial flutter Echo with EF 65-70% Likely demand, elevated in setting of above Right hepatic lobe mass Primary Malignant neoplasm of liver Primary hepatic neoplasm CT abd/pelvis concerning for R hepatic lobe mass Recommending nonurgent US and further testing Liver US ordered- increased in size, favoring primary hepatic neoplasm Discussed with - declines further evaluation at this time. Elevated Liver enzymes Chronically elevated Likely elevated in setting of above Liver US as above Continue to monitor DMII 6.3% 12/14 ISS Hold home agents while hospitalized Continue to monitor glucose levels Severe Malnutrition Encourage increased po nutriotion Likely in setting of cancer noted above. Consider Nutrition/Dietary assistance Multivitamin supplementation Discharge Exam General: Alert, thin cachetic Skin: No noted rashes or bruises Psych: Appropriate mood and affect Neuro: No gross deficits HEENT: NC/AT Chest: Nontender to palpation. CV: RRR Resp: Breath sounds clear bilaterally, no increased effort of breathing. Abdomen:Soft, nontender Extremities: No edema in lower extremities bilaterally. Updated Medication List Medication Instructions Recorded Confirmed Type folic acid 1 mg tablet 1 mg PO HS 07/20/18 12/14/23 History prednisone 5 mg tablet 5 mg PO QAM 07/20/18 12/14/23 History albuterol sulfate 90 mcg/actuation 2 puff inhalation Q4 PRN Shortness 03/07/19 12/14/23 History aerosol inhaler (ProAir HFA) Of Breath cyanocobalamin (vitamin B-12) 2,000 mcg PO 3XWK 03/07/19 12/14/23 History 1,000 mcg tablet (Vitamin B-12) vit A 300 mcg-C 200 mg-E 27 1 tab PO HS 03/07/19 12/14/23 History mg-lutein 2 mg and minerals tablet (Ocuvite with Lutein) [id number] 8 mg-folic 400 1 tab PO HS 11/12/19 12/14/23 History mcg-K 50 mcg-lutein 300 mcg tablet (Centrum Silver Women) montelukast 10 mg tablet 10 mg PO QAM 11/15/20 12/14/23 History latanoprost 0.005 % eye drops 1 drp OPB HS 01/03/21 12/14/23 History acetaminophen 325 mg tablet 650 mg PO Q6H PRN Fever Or Pain 03/21/22 12/14/23 History fluticasone furoate 200 1 inh inhalation DAILY 03/21/22 12/14/23 History mcg-vilanterol 25 mcg/dose inhalation powder (Breo Ellipta) thiamine HCl (vitamin B1) 100 mg 50 mg PO HS 03/21/22 12/14/23 History tablet Lactobacillus rhamnosus GG 5 5 cell PO BIDM 08/06/22 12/14/23 History billion cell oral powder packet (Culturelle Kids Probiotics) guaifenesin 600 mg tablet, 600 mg PO Q12 #10 tabs 09/22/23 12/14/23 Rx extended release 12 hr (Mucinex) isosorbide dinitrate 10 mg tablet 10 mg PO BID #60 tabs 09/22/23 12/14/23 Rx duloxetine 60 mg capsule,delayed 60 mg PO QAM 09/29/23 12/14/23 History release metoprolol succinate 50 mg 50 mg PO AMHS 09/29/23 12/14/23 History tablet,extended release 24 hr pantoprazole 40 mg tablet,delayed 40 mg PO AMHS 09/29/23 12/14/23 History release rosuvastatin 20 mg tablet 20 mg PO HS 09/29/23 12/14/23 History silver sulfadiazine 1 % topical 1 applic topical [id number] SACRAL 09/29/23 12/14/23 History cream (Silvadene) WOUND loperamide 2 mg capsule 2 mg PO Q4H PRN loose stool #14 10/16/23 12/14/23 Rx caps urea 15 gram oral powder packet 15 g PO DAILY #8 ea 10/16/23 12/14/23 Rx (Ure-Na) clopidogrel 75 mg tablet 75 mg PO HS 12/14/23 12/14/23 History insulin glargine 100 unit/mL 20 unit subcut HS 12/14/23 12/14/23 History subcutaneous solution (Lantus U-100 Insulin) insulin lispro 100 unit/mL 1 sliding scale dose subcut [facility] 12/14/23 12/14/23 History subcutaneous solution menthol 0.44 %-zinc oxide 20.6 % 1 applic topical TID 12/14/23 12/14/23 History topical ointment (Calmoseptine) oxybutynin chloride 10 mg 10 mg PO DAILY 12/14/23 12/14/23 History tablet,extended release 24 hr potassium chloride 10 mEq 20 meq PO HS 12/14/23 12/14/23 History capsule,extended release cefdinir 300 mg capsule 300 mg PO BID #12 caps 12/18/23 Rx magnesium oxide 400 mg (241.3 mg 400 mg PO BID #60 tabs 12/18/23 Rx magnesium) tablet Hospital Stay Data Consultations 12/14/23 15:12 ED Decision to Admit Stat 12/14/23 15:40 Consult Cardiology Routine 12/14/23 15:41 Consult Nephrology Routine Diagnostic Imagining Performed 12/14/23 12:45 CT head/brain wo con Stat 12/14/23 12:47 CT abd pelvis wo con Stat 12/14/23 17:09 US liver Routine 12/15/23 00:12 MR brain wo con Urgent Chest X-Ray 12/14/23 12:44 XR chest 1V portable HISTORY: 78 years-old Female ams on O2 acute shortness of breath COMPARISON: 09/29/2023 TECHNIQUE: AP view of the chest FINDINGS: Cardiac silhouette is enlarged. No pneumothorax, pleural effusion or airspace consolidation. Degenerative changes of the spine and left shoulder. Reverse right shoulder arthroplasty. Cholecystectomy. IMPRESSION: Cardiomegaly without acute process. ACT 112: Negative or not required by law. The above report was generated using voice recognition software. It may contain grammatical, syntax or spelling errors. Electronically signed by: Brant Mccoy M.D. 12/14/2023 2:[address] 12/14/23 12:45 CT head/brain wo con CLINICAL HISTORY: 78 years-old Female with ams. Acutely altered mental status TECHNIQUE: Multiple axial CT images of the head were obtained without contrast. A dose lowering technique was utilized adhering to the principles of ALARA. COMPARISON: 10/03/2023 FINDINGS: No acute intracranial hemorrhage, midline shift, intracranial mass, acute territorial ischemia or abnormal extra-axial collection. Involutional changes with chronic microvascular ischemic disease. Unchanged ventriculomegaly, likely on an ex vacuo basis. The calvarium is intact. Prior bilateral lens repair. Submucosal thickening with small air-fluid level within the left maxillary sinus. IMPRESSION: No acute intracranial abnormality. ACT 112: Negative or not required by law. The above report was generated using voice recognition software. It may contain grammatical, syntax or spelling errors. Electronically signed by: Brant Mccoy M.D. 12/14/2023 2:03 PM Abdomen/Pelvis CT 12/14/23 12:[address] WITHOUT CONTRAST CT DOSE: 1410.27 mGy.cm HISTORY: Acute urinary tract infection with sepsis ams, UTI, sepsis TECHNIQUE: Multiaxial CT images of the abdomen and pelvis were performed without contrast. A dose lowering technique was utilized adhering to the principles of ALARA. COMPARISON STUDY: Chest radiograph of same day, CT abdomen and pelvis September 14, 2023 FINDINGS: Cardiomegaly with extensive coronary artery calcifications. Dilation of the main pulmonary artery suggestive of pulmonary arterial hypertension. There is an irregular 1.57 m nodular opacity of the posterior basal segment left lower lobe on image 48 with central bronchial versus cavitation. 7 mm subpleural nodule of the left lower lobe on image 34. 4 mm nodular density in the right lung base on image 1 series 5 just of a lymph node. Additional subcentimeter nodular foci within the right middle lobe measure up to 5 mm. No free air. The unenhanced spleen is mildly enlarged. Cystic foci of the pancreas measure up to 1.7 cm in the pancreatic head on image 100 appears stable from prior nonspecific, likely representing side branch IPMN's. Cholecystectomy. Mild marginal nodularity of the liver may represent cirrhosis. Heterogeneity throughout the right hepatic lobe with a focus of decreased attenuation on image 17 series 4 measuring approximately 9 cm. This appears to have progressed from the September 14, 2023 study. Cysts of the kidneys measure up to 4.9 cm on the left. No hydronephrosis. Decompressed bladder with Colon catheter. Hysterectomy. Extensive atherosclerosis of the aorta without aneurysm. Subcentimeter retroperitoneal lymph nodes. No bowel obstruction. Nonspecific wall thickening of the anal rectal junction. Colonic diverticulosis. Normal appendix. Demineralization appearance of the bones. Severe degenerative space narrowing of the lower thoracic spine. Degenerative changes of the spine, pelvis and hips. IMPRESSION: 1. Suboptimal evaluation of the solid abdominal organs without the use of IV contrast. There is heterogeneity of the liver with suggestion of a large right hepatic lobe mass. Correlation with nonemergent ultrasound and possible tissue sampling recommended. 2. Colonic diverticulosis. 3. No bowel obstruction or bowel wall thickening. 4. Subcentimeter nodular foci within the lung bases are likely infectious or inflammatory. 3 month follow-up chest CT recommended. 5. Additional findings as above. ACT 112: Negative or not required by law. The above report was generated using voice recognition software. It may contain grammatical, syntax or spelling errors. Electronically signed by: Brant Mccoy M.D. 12/14/2023 2:36 PM Liver Ultrasound 12/14/23 17:09 US liver CLINICAL HISTORY: hepatic mass f/u COMPARISON STUDY: Right upper quadrant ultrasound September 01, 2023. CT of the abdomen and pelvis December 14, 2023. FINDINGS: This exam is compromised by suboptimal penetration. A hypoechoic right hepatic lobe mass measures approximately 8 cm. This corresponds to the mass shown on prior CT ultrasound. This mass has increased in size since ultrasound September 11, 2023 when it measured approximately 5 cm. No additional hepatic lesions are identified. There is no biliary ductal patient status post cholecystectomy. Pancreas is obscured pelvis. There is no right hydronephrosis. IMPRESSION: Hypoechoic right hepatic lobe mass measuring approximately 8 cm, increased in size since ultrasound of September 11, 2023. This is neoplastic. Although pathologically indeterminate, this favors a primary hepatic neoplasm. ACT 112: Negative or not required by law. Electronically signed by: Ga Villalta M.D. 12/15/2023 6:48 AM Brain MRI 12/15/23 00:12 MR brain wo con CLINICAL HISTORY: altered mental status TECHNIQUE: Multiplanar and multisequence MR images of the brain were obtained without intravenous contrast. Comparison: Comparison is made to MRI brain 09/23/[address] head 12/14/2023 FINDINGS: Exam is highly limited by patient motion. No abnormal restricted diffusion is identified. Foci of T2 and FLAIR hyperintensity are noted in the paraventricular areas consistent with chronic small vessel ischemic disease. Ex vacuo ventriculomegaly and sulcal enlargement is noted compatible with diffuse volume loss. No mass is seen. There is no mass effect or midline shift. There is no evidence of acute intraparenchymal hemorrhage. No extra axial fluid collections are seen. The corpus callosum, pituitary gland, and cerebellar tonsils appear grossly unremarkable. Flow voids of the major intracranial arterial vessels are identified. The imaged portions of the paranasal sinuses, mastoid air cells, and orbits are unremarkable. IMPRESSION: No acute abnormalities. ACT 112: Negative or not required by law. Electronically signed by: Jose Morton M.D. 12/15/2023 6:50 AM Pending Results Patient Have Any Pending Studies at Discharge: No Discharge Instructions Given to Patient (Per Discharging Provider) [place], You were admitted with a severe infection and dehydration that made you unresponsive and confused. We treated you with fluids and antibiotics and your symptoms improved. You were also admitted with an irregular heart rate that we also treated and you are now better. Unfortunately, we also noted that you have a liver lesion that is getting bigger in size and that the radiologist thinks is likely a primary liver cancer. We discussed this with your and he thinks it best not to put you through the rigors of further testing and surgeries if needed. He would like you to be made comfortable and we are discharging you back to acute rehab with the goal to transition to hospice while there. Please keep close follow up with your telemetry monitor, track layer head and primary care provider after discharge. Please do not hesitate to come back to the emergency room if your symptoms worsen or return. It was a pleasure taking care of you while you were here. Total Time Total Time Spent Total Time Spent (In Minutes): > 30 minutes
== END 2023-12-18 14:41 | DRG 871 ==
LOC: ED 12:36 → SUATTDRO 15:42 → EDINP 15:42 → 4W 16:59